=== PATIENT | female | born 1965 | race American Indian/Alaskan Native ===

== ENCOUNTER 2016-10-26 09:43 | Inpatient (IN) | payer OTHER ==
[2016-10-26 09:44] VITALS: BMI 28.3
--- NOTE | 2016-10-26 09:50 | C.PDOC ---
History Of Present Illness 51F c/o pain in right great toe worsening over the last several days. she says the toe became discolored and then the toenail fell off about 12 days ago. no fever. had some cough yesterday but not today. has been putting gentamycin cream on the toe. Time Seen by Provider: 10/26/16 09:47 Chief Complaint (Nursing): Lower Extremity Problem/Injury Past Medical History Vital Signs: Last Vital Signs Temp 99.8 F H 10/27/16 06:45 Pulse 78 10/27/16 06:45 Resp 18 10/27/16 06:45 BP 142/72 10/27/16 06:45 Pulse Ox 97 10/27/16 06:45 - Medical History PMH: Anemia, Bronchitis, Diabetes, HTN, Hypercholesterolemia, Pneumonia, End Stage Renal Disease (PD), Chronic Kidney Disease Surgical History: - [facility] Procedures CREATE CUTANPERITON FIST (12/30/14) HEMODIALYSIS (11/06/14) LAPAROSCOP LYSIS-PERITONEAL ADHES (12/30/14) VASCULAR CATH IRRIGATION (01/14/15) VENOUS CATHETERIZATION FOR RENAL DIALYSIS (11/06/14) Family History: States: Other Other Family History: nc - Social History Hx Tobacco Use: Yes Hx Alcohol Use: No Hx Substance Use: No - Immunization History Hx Tetanus Toxoid Vaccination: Yes Hx Influenza Vaccination: No Hx Pneumococcal Vaccination: No Review Of Systems Except As Marked, All Systems Reviewed And Found Negative. Constitutional: Negative for: Fever, Chills Cardiovascular: Negative for: Chest Pain Respiratory: Negative for: Cough, Shortness of Breath Gastrointestinal: Negative for: Nausea, Vomiting, Abdominal Pain Neurological: Negative for: Weakness, Numbness Physical Exam - Physical Exam Appears: Non-toxic, Other (appears uncomfortable due to pain) Skin: Warm, Dry Eye(s): bilateral: PERRL Nose: No Epistaxis Oral Mucosa: Moist Cardiovascular: Rhythm Regular Respiratory: No Decreased Breath Sounds, No Accessory Muscle Use Gastrointestinal/Abdominal: Soft, No Tenderness, Other (PD cath in place) Extremity: Other (right: dusky coloration of toes 1,3,5. nail has avulsed great toe and there is whitish discoloration of the toe. ) Pulses: Left Dorsalis Pedis: Absent, Right Dorsalis Pedis: Absent Neurological/Psych: Oriented x3, Normal Motor, Normal Sensation, Other (no focal deficits) ED Course And Treatment - Laboratory Results Result Diagrams: 10/26/16 10:56 10/26/16 10:56 O2 Sat by Pulse Oximetry: 98 Medical Decision Making Medical Decision Making: abx ordered disc w Dr Lord who will admit consulted podiatry who came in to eval the pt arterial duplex ordered xr r foot- no acute findings Disposition - Disposition Disposition: HOSPITALIZED Disposition Time: 11:23 Condition: STABLE - Clinical Impression Clinical Impression: Foot infection, Lower limb ischemia
[2016-10-26] MEDS ORDERED: Piperacill/Tazo 2.25gm in Dex 2.25 GM/50 ML BAG IVPB STA (10:05)
--- NOTE | 2016-10-26 10:47 | RAD ---
PROCEDURE: Right Foot Radiographs. HISTORY: eval for osteo COMPARISON: None. FINDINGS: BONES: Normal. No fracture. JOINTS: Normal. SOFT TISSUES: Vascular calcification OTHER FINDINGS: None. IMPRESSION: No plain radiographic evidence of osteomyelitis.
[2016-10-26] MEDS ORDERED: Morphine 4 MG/ML VIAL ONE (10:53)
[2016-10-26 10:59] LABS: BASO # 0.1 K/uL (0.0-0.2); BASO % 0.6 % (0.0-2.0); EOS % 0.3 % (0.0-4.0); HEMATOCRIT 25.6 % (34.0-47.0); LYMPH # 1.1 K/uL (1.0-4.3); LYMPH % 7.4 % (20.0-40.0); MEAN CORPUSCULAR HEMOGLOBIN 32.7 pg (27.0-31.0); MEAN CORPUSCULAR HGB CONC 32.7 g/dL (33.0-37.0); MEAN PLATELET VOLUME 8.8 fL (7.2-11.7); MONO # 0.7 K/uL (0.0-0.8); MONO % 5.1 % (0.0-10.0); PLATELET COUNT 260 K/uL (130-400); RED CELL DISTRIBUTION WIDTH 18.6 % (11.5-14.5)
[2016-10-26 11:05] LABS: WHITE BLOOD COUNT 14.5 K/uL (4.8-10.8)
[2016-10-26 11:08] LABS: VENOUS BLOOD GAS BASE EXCESS 4.7 mmol/L (0.0-2.0); VENOUS BLOOD GAS PCO2 51 mmHg (40-60); VENOUS BLOOD PH 7.39 (7.32-7.43)
[2016-10-26 11:08] LABS: POTASSIUM 4.1 mmol/L (3.6-5.2)
[2016-10-26 11:10] LABS: ALB/GLOB RATIO 1.2 (1.0-2.1); BILIRUBIN,TOTAL 0.6 mg/dL (0.2-1.3); CALCIUM 9.3 mg/dl (8.6-10.4); TOTAL PROTEIN 6.5 g/dL (6.3-8.3)
[2016-10-26 11:24] LABS: NEUTROPHIL 87 % (50-75); TOTAL CELLS COUNTED 100
--- NOTE | 2016-10-26 13:07 | CP.PCM.CON ---
<Ricky Prieto - Last Filed: 10/26/16 13:26> History of Present Illness - History of Present Illness History of Present Illness: This is a 51 y/o female patient who was seen and evaluated at bedside with attending, Dr. Aldrich, after request for podiatry consultation. Patient has PMH significant for DM, HTN, hypercholesterolemia, ESRD, anemia, bronchitis and pneumonia. Patient states that she has been experiencing severe pain in her Right great toe over the last few days. She states that the toenail became discolored and fell off around 2 weeks ago. She states that she now has been applying Gentamicin cream on the toe. Patient states that she thinks her toe appears white/discolored because of the tape that she used to dress it. She denies any F/C/N/V/SOB/CP. No other pedal complaints reported at this time. Past Patient History - Infectious Disease Hx of Infectious Diseases: None - Past Medical History & Family History Past Medical History?: Yes - Past Social History Smoking Status: Smoker Currrent Status Unknown - CARDIAC Hx Hypercholesterolemia: Yes Hx Hypertension: Yes - PULMONARY Hx Bronchitis: Yes Hx Pneumonia: Yes - RENAL Hx Chronic Kidney Disease: Yes - ENDOCRINE/METABOLIC Hx Endocrine Disorders: Yes Hx Diabetes Mellitus Type 2: Yes - HEMATOLOGICAL/ONCOLOGICAL Hx Anemia: Yes - INTEGUMENTARY Hx Dermatological Problems: Yes Hx Eczema: Yes - MUSCULOSKELETAL/RHEUMATOLOGICAL Hx Falls: Yes - GENITOURINARY/GYNECOLOGICAL Hx Genitourinary Disorders: Yes (DX: RENAL FAILURE) - PSYCHIATRIC Hx Substance Use: No - SURGICAL HISTORY Hx Surgeries: Yes Hx Section: Yes Hx Eye Surgery: Yes (INSERT "GAS" BUBBLE BOTH EYES) Hx Tubal Ligation: Yes Hx Vascular Access Device: Yes (R SC HD cath) Other/Comment: I&D GROIN; 12/30/14 LAPAROSCOPIC INSERTION PERITONEAL DIALYSIS CATHETER. 01/14/15 REVISION DONE OF PERITIONEAL DIALYSIS CATH. - ANESTHESIA Hx Anesthesia: Yes Hx Anesthesia Reactions: No Hx Malignant Hyperthermia: No Meds Allergies/Adverse Reactions: Allergies Allergy/AdvReac Type Severity Reaction Status Date / Time shrimp Allergy Verified 10/26/16 09:55 Physical Exam - Constitutional Appears: Non-toxic, No Acute Distress - Extremities Exam Extremities exam: Positive for: tenderness - Neurological Exam Neurological exam: Alert, Oriented x3 - Psychiatric Exam Psychiatric exam: Normal Affect, Normal Mood - Skin Skin Exam: Dry - Additional Findings Additional findings: Bilateral foot examination: Vascular: DP pulse faintly palpable 1/4 bilaterally; PT pulse non-palpable; capillary fill time 4 secs to all digits except Right hallux, which appears to be blanched with no return of normal color upon compression; Right hallux feels mildly cool to the touch Neuro: light touch sensation and motor function grossly intact Derm: Right hallux appears to be ischemic with no evidence of open wounds; Right hallux toenail is absent; no edema, no erythema, no open lesions; no clinical signs of infection noted Ortho: significant pain elicited upon palpation of the Right hallux Results - Vital Signs Recent Vital Signs: Last Vital Signs Temp 98.9 F 10/26/16 12:00 Pulse 90 10/26/16 12:00 Resp 16 10/26/16 12:00 BP 147/70 10/26/16 12:00 Pulse Ox 96 10/26/16 12:00 - Labs Result Diagrams: 10/26/16 10:56 10/26/16 10:56 Assessment & Plan - Assessment and Plan (Free Text) Assessment: 51 y/o female with ischemic changes noted to the Right hallux Plan: Patient seen and evaluated at bedside with attending, Dr. Aldrich Labs and vitals reviewed: WBC 14.5; afebrile Right foot radiographs are unremarkable concerning the Right hallux Arterial doppler studies pending- will follow-up on report Dr. Parra contacted for further recommendations; will greatly appreciate help Pain management as per PMD Podiatry to follow while patient remains in house Assessment/Plan Patient Problems: Current Active Problems Problem Status Onset Foot infection Acute Lower limb ischemia Acute <Dre Aldrich - Last Filed: 10/27/16 12:43> Meds - Medications Medications: Current Medications Albuterol Sulfate (Albuterol 0.083% Inhal Jojo (2.5 Mg/3 Ml) Ud) 2.5 mg IH .Q4- 6H [facility] Amlodipine Besylate (Norvasc) 10 mg PO DAILY [facility] Last Admin: 10/27/16 11:00 Dose: Not Given Aspirin (Ecotrin) 81 mg PO DAILY [facility] Last Admin: 10/27/16 10:51 Dose: 81 mg Calcium Acetate (Phoslo) 667 mg PO TIDCC [facility] Last Admin: 10/27/16 11:00 Dose: Not Given Carvedilol (Coreg) 12.5 mg PO BID [facility] Last Admin: 10/27/16 10:52 Dose: 12.5 mg Docusate Sodium (Colace) 100 mg PO BID [facility] Last Admin: 10/27/16 10:51 Dose: 100 mg Ferrous Sulfate (Feosol) 325 mg PO DAILY [facility] Last Admin: 10/27/16 10:58 Dose: Not Given Furosemide (Lasix) 40 mg PO DAILY [facility] Last Admin: 10/27/16 10:52 Dose: 40 mg Piperacillin Sod/Tazobactam Sod (Zosyn 2.25 Gm Iv Premix) 2.25 gm in 50 mls @ 100 mls/hr IVPB Q8H [facility] Last Admin: 10/27/16 02:34 Dose: 100 mls/hr Heparin Sodium/Sodium Chloride (Heparin 68936 Units/250ml 1/2 Normal Saline) 25 ,000 units in 250 mls @ 4.491 mls/hr IV .Q24H PRN; Protocol; 6 UNITS/KG/HR PRN Reason: PROTOCOL Insulin Glargine (Lantus) 50 unit SC [facility] Last Admin: 10/26/16 21:44 Dose: 50 units Morphine Sulfate (Morphine) 1 mg IVP Q4 PRN PRN Reason: Pain, moderate (4-7) Rosuvastatin Calcium (Crestor) 2.5 mg PO [facility] Results - Vital Signs Recent Vital Signs: Last Vital Signs Temp 100.9 F H 10/27/16 07:00 Pulse 92 H 10/27/16 07:00 Resp 20 10/27/16 07:00 BP 150/76 10/27/16 10:52 Pulse Ox 98 10/27/16 07:59 - Labs Result Diagrams: 10/27/16 08:13 10/26/16 10:56 Labs: Laboratory Results - last 24 hr 10/26/16 10/26/16 10/27/16 18:15 21:28 06:57 WBC RBC Hgb Hct MCV MCH MCHC RDW Plt Count MPV PT 11.5 INR 1.0 APTT 27 POC Glucose (mg/dL) 272 H 114 H Phosphorus 10/27/16 10/27/16 10/27/16 08:13 08:13 11:33 WBC 12.0 H RBC 2.69 L Hgb 8.8 L Hct 27.0 L MCV 100.3 H MCH 32.7 H MCHC 32.7 L RDW 19.2 H Plt Count 286 MPV 8.8 PT INR APTT POC Glucose (mg/dL) 49 L Phosphorus 8.0 H 10/27/16 11:57 WBC RBC Hgb Hct MCV MCH MCHC RDW Plt Count MPV PT INR APTT POC Glucose (mg/dL) 147 H Phosphorus Assessment/Plan Plan/Action: 1. 2. 3. 4. 5. 6. Attending/Attestation - Attestation I have personally seen and examined this patient.: Yes I have fully participated in the care of the patient.: Yes I have reviewed all pertinent clinical information: Yes
--- NOTE | 2016-10-26 14:38 | CP.PCM.CON ---
History of Present Illness - History of Present Illness History of Present Illness: This is a 51 y/o female patient who was seen and evaluated at bedside with attending, Dr. Aldrich, after request for podiatry consultation. Patient has PMH significant for DM, HTN, hypercholesterolemia, ESRD, anemia, bronchitis and pneumonia. Patient states that she has been experiencing severe pain in her Right great toe over the last few days. She states that the toenail became discolored and fell off around 2 weeks ago. She states that she now has been applying Gentamicin cream on the toe. Patient states that she thinks her toe appears white/discolored because of the tape that she used to dress it. She denies any F/C/N/V/SOB/CP. No other pedal complaints reported at this time. Presented to office today with very tender toe #1 with erythema, possible pus from antrerior nail bed. Had pulled nail off 12 days ago and administering local ointents Has had fevers, chill. PMH: ESRD- ON [facility] DIABETIC NEPHROPATHY DM 2 HTN DL CHRONIC ANEMIA CHF OCCURENCE ABOUT 6 MOS AGO PSH: PD CATHETER INSERTION TUBAL LIGATION EYE SURGERY HAS CELLULITIS TOE #1 RIGHT R/O OSTEOMYELITIS ESRD REQUIRING PD WILL ARRANGE FOR PD IV ANTIBIOTICS NEEDS WOUND CARE, SURGICAL FOLLOW UP CONSULT DICTATED Past Patient History - Infectious Disease Hx of Infectious Diseases: None - Past Medical History & Family History Past Medical History?: Yes - Past Social History Smoking Status: Never Smoked - CARDIAC Hx Hypercholesterolemia: Yes Hx Hypertension: Yes - PULMONARY Hx Bronchitis: Yes Hx Pneumonia: Yes - RENAL Hx Chronic Kidney Disease: Yes - ENDOCRINE/METABOLIC Hx Endocrine Disorders: Yes Hx Diabetes Mellitus Type 2: Yes - HEMATOLOGICAL/ONCOLOGICAL Hx Anemia: Yes - INTEGUMENTARY Hx Dermatological Problems: Yes Hx Eczema: Yes - MUSCULOSKELETAL/RHEUMATOLOGICAL Hx Falls: Yes - GENITOURINARY/GYNECOLOGICAL Hx Genitourinary Disorders: Yes (DX: RENAL FAILURE) - PSYCHIATRIC Hx Substance Use: No - SURGICAL HISTORY Hx Surgeries: Yes Hx Section: Yes Hx Eye Surgery: Yes (INSERT "GAS" BUBBLE BOTH EYES) Hx Tubal Ligation: Yes Hx Vascular Access Device: Yes (R SC HD cath) Other/Comment: I&D GROIN; 12/30/14 LAPAROSCOPIC INSERTION PERITONEAL DIALYSIS CATHETER. 01/14/15 REVISION DONE OF PERITIONEAL DIALYSIS CATH. - ANESTHESIA Hx Anesthesia: Yes Hx Anesthesia Reactions: No Hx Malignant Hyperthermia: No Meds Allergies/Adverse Reactions: Allergies Allergy/AdvReac Type Severity Reaction Status Date / Time shrimp Allergy Verified 10/26/16 09:55 Results - Vital Signs Recent Vital Signs: Last Vital Signs Temp 98.8 F 10/26/16 13:58 Pulse 88 10/26/16 13:58 Resp 20 10/26/16 13:58 BP 164/77 H 10/26/16 13:58 Pulse Ox 92 L 10/26/16 13:58 - Labs Result Diagrams: 10/26/16 10:56 10/26/16 10:56
--- NOTE | 2016-10-26 15:07 | CON ---
DATE: 10/26/2016 The patient is a 51-year-old woman who was initially seen in the office today with a very tender right toe #1 which was very erythematous, pale and possible pus coming out around the na il bed. She had taken off on her nail about 12 days ago and was treating it locally with an ointment . It became possibly pussy and very tender and erythematous, and was seen in the office. Concern fo r osteomyelitis and cellulitis was expressed, and the patient came to the Emergency Department. She was seen by podiatry in the Emergency Department and was being treated for cellulitis. She has been receiving now IV vancomycin and IV Zosyn. PAST MEDICAL HISTORY: Otherwise is that of end-stage renal disease due to diabetic nephropathy, been on maintenance peritoneal dialysis for 2 years, history of hypertension, diabetes mellitus type 2, c hronic anemia, dyslipidemia. PAST SURGICAL HISTORY: PD catheter insertion, , tubal ligation and eye surgery, presumably for diabetic retinopathy. FAMILY HISTORY: Negative for chronic kidney disease but mostly unknown. SOCIAL HISTORY: She is a former smoker, former history of intravenous drug abuse but approximately 1 7 years ago. No history of alcohol abuse. REVIEW OF SYSTEMS: Significant for weakness, fevers, chills at home; extreme pain in the right foot from the toe cellulitis. No nausea or vomiting. No diarrhea. No new rashes except for the erythema around toe #1. No chest pain. She has little urine output. Other review of systems are all negati ve. PHYSICAL EXAMINATION: GENERAL: She is a well-developed female in no acute distress. VITAL SIGNS: When seen at present, the blood pressure is 164/77, pulse 88, temperature 98.8, pulse o x was 92% on room air. HEENT: Anicteric. Mouth was clear. NECK: No JVD. LUNGS: Lung razo were clear. HEART: Regular rhythm, no murmur. ABDOMEN: Soft, benign. PD catheter in place. EXTREMITIES: She had no peripheral edema. The right toe #1 was very erythematous initially; now wit h less erythema and the discharges around the nail bed have dried out mostly. She had an x-ray of the foot and it revealed no evidence of osteomyelitis. She has vascular calcific ation now. LABORATORY DATA: The chemistries show BUN of 49, creatinine 13.6, potassium 4.1, sodium 132, calcium 9.3, hemoglobin is 8.4, white count 14.5. IMPRESSION: Right toe #1 infection, possible abscess and cellulitis, rule out osteomyelitis; end-sta ge renal disease due to diabetic nephropathy; diabetes mellitus, type 2; hypertension, chronic anemia and dyslipidemia. The anemia is worse than previous. PLAN: Would be surgical wound care. Will rule out osteomyelitis. IV antibiotics have been started, including vancomycin and Zosyn. Will continue the peritoneal dialysis and add subQ Procrit, and ignacio ck iron stores. Will follow up. Merritt Macdonald MD cc: [id number] TT: 10/26/2016 15:06:12 Confirmation # [id number] Dictation # [id number] mn
[2016-10-26] MEDS ORDERED: Vancomycin 1 gm/NS 200 ml 1 GM/200 ML BAG IVPB SCH ×2 (16:00→17:00)
[2016-10-26] MEDS ORDERED: Piperacill/Tazo 3.375gm in Dex 3.375 GM/50 ML BAG IVPB SCH (16:00)
[2016-10-26] MEDS ORDERED: Heparin25000 units/250ml 1/2NS 25,000 UNITS/250 ML BAG IV PRN (16:32)
[2016-10-26] MEDS: Piperacill/Tazo 2.25gm in Dex 2.25 GM/50 ML BAG IVPB SCH (19:40)
[2016-10-26] MEDS ORDERED: (Lantus) Insulin Glargine, Recombinant SC SCH (22:00)
[2016-10-27] MEDS: Piperacill/Tazo 2.25gm in Dex 2.25 GM/50 ML BAG IVPB SCH ×3 (02:34→19:27)
--- NOTE | 2016-10-27 05:46 | CP.PCM.CON ---
History of Present Illness - History of Present Illness History of Present Illness: History Of Present Illness 51F c/o pain in right great toe worsening over the last several days. she says the toe became discolored and then the toenail fell off about 12 days ago. no fever. had some cough yesterday but not today. has been putting gentamycin cream on the toe. Chief Complaint (Nursing): Lower Extremity Problem/Injury Past Medical History Vital Signs: Last Vital Signs Temp 98.2 F 10/26/16 09:45 Pulse 88 10/26/16 09:45 Resp 18 10/26/16 09:45 BP 162/80 H 10/26/16 09:45 Pulse Ox 98 10/26/16 09:50 - Medical History PMH: Anemia, Bronchitis, Diabetes, HTN, Hypercholesterolemia, Pneumonia, End Stage Renal Disease (PD), Chronic Kidney Disease Surgical History: - [facility] Procedures CREATE CUTANPERITON FIST (12/30/14) HEMODIALYSIS (11/06/14) LAPAROSCOP LYSIS-PERITONEAL ADHES (12/30/14) VASCULAR CATH IRRIGATION (01/14/15) VENOUS CATHETERIZATION FOR RENAL DIALYSIS (11/06/14) Family History: States: Other Other Family History: nc - Social History Hx Tobacco Use: Yes Hx Alcohol Use: No Hx Substance Use: No - Immunization History Hx Tetanus Toxoid Vaccination: Yes Hx Influenza Vaccination: No Hx Pneumococcal Vaccination: No Review Of Systems Except As Marked, All Systems Reviewed And Found Negative. Constitutional: Negative for: Fever, Chills Cardiovascular: Negative for: Chest Pain Respiratory: Negative for: Cough, Shortness of Breath Gastrointestinal: Negative for: Nausea, Vomiting, Abdominal Pain Neurological: Negative for: Weakness, Numbness Physical Exam - Physical Exam Appears: Other (appears uncomfortable due to pain) Skin: Warm, Dry Eye(s): bilateral: PERRL Nose: No Epistaxis Oral Mucosa: Moist Cardiovascular: Rhythm Regular Respiratory: No Decreased Breath Sounds, No Accessory Muscle Use Gastrointestinal/Abdominal: Soft, No Tenderness, Other (PD cath in place) Extremity: Other (right: dusky coloration of toes 1,3,5. nail has avulsed great toe and there is whitish discoloration of the toe. ) Pulses: Left Dorsalis Pedis: Absent, Right Dorsalis Pedis: Absent Neurological/Psych: Oriented x3, Normal Motor, Normal Sensation, Other (no focal deficits) Past Patient History - Infectious Disease Hx of Infectious Diseases: None - Past Medical History & Family History Past Medical History?: Yes - Past Social History Smoking Status: Never Smoked - CARDIAC Hx Hypercholesterolemia: Yes Hx Hypertension: Yes - PULMONARY Hx Bronchitis: Yes Hx Pneumonia: Yes - RENAL Hx Chronic Kidney Disease: Yes - ENDOCRINE/METABOLIC Hx Endocrine Disorders: Yes Hx Diabetes Mellitus Type 2: Yes - HEMATOLOGICAL/ONCOLOGICAL Hx Anemia: Yes - INTEGUMENTARY Hx Dermatological Problems: Yes Hx Eczema: Yes - MUSCULOSKELETAL/RHEUMATOLOGICAL Hx Falls: Yes - GENITOURINARY/GYNECOLOGICAL Hx Genitourinary Disorders: Yes (DX: RENAL FAILURE) - PSYCHIATRIC Hx Substance Use: No - SURGICAL HISTORY Hx Surgeries: Yes Hx Section: Yes Hx Eye Surgery: Yes (INSERT "GAS" BUBBLE BOTH EYES) Hx Tubal Ligation: Yes Hx Vascular Access Device: Yes (R SC HD cath) Other/Comment: I&D GROIN; 12/30/14 LAPAROSCOPIC INSERTION PERITONEAL DIALYSIS CATHETER. 01/14/15 REVISION DONE OF PERITIONEAL DIALYSIS CATH. - ANESTHESIA Hx Anesthesia: Yes Hx Anesthesia Reactions: No Hx Malignant Hyperthermia: No Meds Allergies/Adverse Reactions: Allergies Allergy/AdvReac Type Severity Reaction Status Date / Time shrimp Allergy Verified 10/26/16 09:55 - Medications Medications: Current Medications Albuterol Sulfate (Albuterol 0.083% Inhal Jojo (2.5 Mg/3 Ml) Ud) 2.5 mg IH .Q4- 6H [facility] Amlodipine Besylate (Norvasc) 10 mg PO DAILY [facility] Aspirin (Ecotrin) 81 mg PO DAILY [facility] Calcium Acetate (Phoslo) 667 mg PO TIDCC [facility] Last Admin: 10/26/16 21:52 Dose: Not Given Carvedilol (Coreg) 12.5 mg PO BID [facility] Last Admin: 10/26/16 17:46 Dose: 12.5 mg Docusate Sodium (Colace) 100 mg PO BID [facility] Last Admin: 10/26/16 17:45 Dose: 100 mg Ferrous Sulfate (Feosol) 325 mg PO DAILY [facility] Furosemide (Lasix) 40 mg PO DAILY [facility] Piperacillin Sod/Tazobactam Sod (Zosyn 2.25 Gm Iv Premix) 2.25 gm in 50 mls @ 100 mls/hr IVPB Q8H [facility] Last Admin: 10/27/16 02:34 Dose: 100 mls/hr Heparin Sodium/Sodium Chloride (Heparin 14227 Units/250ml 1/2 Normal Saline) 25 ,000 units in 250 mls @ 4.491 mls/hr IV .Q24H PRN; Protocol; 6 UNITS/KG/HR PRN Reason: PROTOCOL Insulin Glargine (Lantus) 50 unit SC [facility] Last Admin: 10/26/16 21:44 Dose: 50 units Morphine Sulfate (Morphine) 2 mg IVP Q4 PRN PRN Reason: Pain, Mild (1-3) Last Admin: 10/27/16 01:38 Dose: 2 mg Results - Vital Signs Recent Vital Signs: Last Vital Signs Temp 98.9 F 10/27/16 00:00 Pulse 88 10/27/16 00:00 Resp 20 10/27/16 00:00 BP 156/70 H 10/27/16 00:00 Pulse Ox 96 10/27/16 00:00 - Labs Result Diagrams: 10/26/16 10:56 10/26/16 10:56 Labs: Laboratory Results - last 24 hr 10/26/16 10/26/16 18:15 21:28 PT 11.5 INR 1.0 APTT 27 POC Glucose (mg/dL) 272 H Assessment & Plan - Assessment and Plan (Free Text) Assessment: 1. Right Toe discoloration: Osteomyelitis Vs. Critical Limb ischemia Arterial duplex pending On Peritonial dialysis. Need Renal clearnace for lower extremity CTA Patient is refusing IV Heparin, and CT angiography Recommend Hemodialysis atleat tempoararily for which patient is not agreeing Underastands the risk of losing the leg and potential gagrane Recommend IV Heaprin, Statin, ASA and Plavix
[2016-10-27] MEDS: Albuterol 0.083% Inhal Sol (2.5 mg/3 mL) UD IH SCH ×4 (07:24→19:40)
[2016-10-27 08:22] LABS: MEAN CELL VOLUME 100.3 fL (81.0-99.0); MEAN CORPUSCULAR HEMOGLOBIN 32.7 pg (27.0-31.0); MEAN CORPUSCULAR HGB CONC 32.7 g/dL (33.0-37.0); MEAN PLATELET VOLUME 8.8 fL (7.2-11.7); RED CELL DISTRIBUTION WIDTH 19.2 % (11.5-14.5)
--- NOTE | 2016-10-27 08:26 | CP.PCM.PN ---
<Radhames De Los Santos - Last Filed: 10/27/16 12:11> Subjective - Date & Time of Evaluation Date of Evaluation: 10/27/16 Time of Evaluation: 08:00 - Subjective Subjective: 51 y/o female patient at bedside this morning concerning right hallux ischemic changes. Patient states her right great toe pain has subsided since admission controlled by pain medications, however she is experiencing nausea, and vomited during the interview. Pt is refusing antiemetic or change in pain control at this time s she does not wish to try any other pain medication in fear it will make her feel "alicia' and potentially cause her to relapse into opiod use. She states that she now has been applying Gentamicin cream on the toe. Pt admits to nausea and vomiting. She denies any recent F/C/SOB/CP. No other pedal complaints reported at this time. Objective - Vital Signs/Intake and Output Vital Signs (last 24 hours): Temp Pulse Resp BP Pulse Ox 100.9 F H 92 H 20 160/72 H 98 10/27/16 07:00 10/27/16 07:00 10/27/16 07:00 10/27/16 07:00 10/27/16 07:59 - Medications Medications: Current Medications Albuterol Sulfate (Albuterol 0.083% Inhal Jojo (2.5 Mg/3 Ml) Ud) 2.5 mg IH .Q4- 6H ON [facility] OF [facility] Amlodipine Besylate (Norvasc) 10 mg PO DAILY ON [facility] OF [facility] Aspirin (Ecotrin) 81 mg PO DAILY ON [facility] OF [facility] Calcium Acetate (Phoslo) 667 mg PO TIDCC ON LICENSE OF [facility] Last Admin: 10/26/16 21:52 Dose: Not Given Carvedilol (Coreg) 12.5 mg PO BID ON [facility] OF [facility] Last Admin: 10/26/16 17:46 Dose: 12.5 mg Docusate Sodium (Colace) 100 mg PO BID ON [facility] OF [facility] Last Admin: 10/26/16 17:45 Dose: 100 mg Ferrous Sulfate (Feosol) 325 mg PO DAILY ON [facility] Furosemide (Lasix) 40 mg PO DAILY ON [facility] OF [facility] Piperacillin Sod/Tazobactam Sod (Zosyn 2.25 Gm Iv Premix) 2.25 gm in 50 mls @ 100 mls/hr IVPB Q8H ON [facility] OF [facility] Last Admin: 10/27/16 02:34 Dose: 100 mls/hr Heparin Sodium/Sodium Chloride (Heparin 00861 Units/250ml 1/2 Normal Saline) 25 ,000 units in 250 mls @ 4.491 mls/hr IV .Q24H PRN; Protocol; 6 UNITS/KG/HR PRN Reason: PROTOCOL Insulin Glargine (Lantus) 50 unit SC HS [facility] Last Admin: 10/26/16 21:44 Dose: 50 units Morphine Sulfate (Morphine) 2 mg IVP Q4 PRN PRN Reason: Pain, Mild (1-3) Last Admin: 10/27/16 07:54 Dose: 2 mg Rosuvastatin Calcium (Crestor) 2.5 mg PO HS [facility] - Labs Labs: PT 11.5 SECONDS (9.7-12.2) 10/26/16 18:15 INR 1.0 10/26/16 18:15 APTT 27 SECONDS (21-34) 10/26/16 18:15 - Constitutional Appears: Non-toxic, No Acute Distress - Extremities Exam Additional comments: Bilateral foot examination: Vascular: DP pulse faintly palpable 1/4 bilaterally; PT pulse non-palpable; capillary fill time 4 secs to all digits except Right hallux, which appears to be blanched with no return of normal color upon compression; Right hallux feels mildly cool to the touch Neuro: light touch sensation and motor function grossly intact Derm: Right hallux appears to be ischemic with no evidence of open wounds; Right hallux toenail is absent; no edema, no erythema, no open lesions; no clinical signs of infection noted Ortho: significant pain elicited upon palpation of the Right hallux - Neurological Exam Neurological Exam: Alert, Awake, Oriented x3 Assessment and Plan - Assessment and Plan (Free Text) Assessment: 51 y/o female with ischemic changes noted to the Right hallux Plan: Patient seen and evaluated at bedside. Discussed with attending, Dr. Aldrich, who was made aware of changes and endorses the following plan. Labs and vitals reviewed: WBC 12; Low grade fever, 24-hour T-lga=095.9F Right foot radiographs are unremarkable concerning the Right hallux Arterial duplex studies pending- will follow-up on report Dr. Parra note reviewed. Podiatry to follow while patient remains in house <Dre Aldrich - Last Filed: 10/27/16 12:45> Objective - Vital Signs/Intake and Output Vital Signs (last 24 hours): Temp Pulse Resp BP Pulse Ox 100.9 F H 92 H 20 150/76 98 10/27/16 07:00 10/27/16 07:00 10/27/16 07:00 10/27/16 10:52 10/27/16 07:59 - Medications Medications: Current Medications Albuterol Sulfate (Albuterol 0.083% Inhal Jojo (2.5 Mg/3 Ml) Ud) 2.5 mg IH .Q4- 6H [facility] Amlodipine Besylate (Norvasc) 10 mg PO DAILY ON [facility] Last Admin: 10/27/16 11:00 Dose: Not Given Aspirin (Ecotrin) 81 mg PO DAILY ON [facility] Last Admin: 10/27/16 10:51 Dose: 81 mg Calcium Acetate (Phoslo) 667 mg PO TIDCC ON [facility] OF [facility] Last Admin: 10/27/16 11:00 Dose: Not Given Carvedilol (Coreg) 12.5 mg PO BID ON [facility] Last Admin: 10/27/16 10:52 Dose: 12.5 mg Docusate Sodium (Colace) 100 mg PO BID ON [facility] Last Admin: 10/27/16 10:51 Dose: 100 mg Ferrous Sulfate (Feosol) 325 mg PO DAILY [facility] Last Admin: 10/27/16 10:58 Dose: Not Given Furosemide (Lasix) 40 mg PO DAILY ON [facility] Last Admin: 10/27/16 10:52 Dose: 40 mg Piperacillin Sod/Tazobactam Sod (Zosyn 2.25 Gm Iv Premix) 2.25 gm in 50 mls @ 100 mls/hr IVPB Q8H ON [facility] Last Admin: 10/27/16 02:34 Dose: 100 mls/hr Heparin Sodium/Sodium Chloride (Heparin 00616 Units/250ml 1/2 Normal Saline) 25 ,000 units in 250 mls @ 4.491 mls/hr IV .Q24H PRN; Protocol; 6 UNITS/KG/HR PRN Reason: PROTOCOL Insulin Glargine (Lantus) 50 unit SC [facility] Last Admin: 10/26/16 21:44 Dose: 50 units Morphine Sulfate (Morphine) 1 mg IVP Q4 PRN PRN Reason: Pain, moderate (4-7) Rosuvastatin Calcium (Crestor) 2.5 mg PO [facility] - Labs Labs: 10/27/16 08:13 PT 11.5 SECONDS (9.7-12.2) 10/26/16 18:15 INR 1.0 10/26/16 18:15 APTT 27 SECONDS (21-34) 10/26/16 18:15 Attending/Attestation - Attestation I have personally seen and examined this patient.: Yes I have fully participated in the care of the patient.: Yes I have reviewed all pertinent clinical information, including history, physical exam and plan: Yes Notes (Text): 10/27/16 12:44 Pt was seen by Dr. Parra. Dr. Clark to see pt today as well. Will f/u circ results when available.
--- NOTE | 2016-10-27 09:04 | CP.PCM.HP ---
History of Present Illness - History of Present Illness History of Present Illness: Chief complaint: right leg pain History present illness: 51-year-old female with history of hypertension, end-stage renal disease on peritoneal dialysis, hypercholesterolemia, history of pneumonia in the past and chronic kidney disease came to the emergency room with worsening right leg pain , and the pain over right foot. Patient went to see the auto painter to, will send the patient to the emergency rPatient is having increasing symptoms of pain over the right foot, and able to walk. Patient did not have pain while she came to my office last time. Patient is currently having difficulty in controlling the blood sugar. Hospitalized recently with a fluid overload, shortness of jeffrey, at [facility] , emergency hemodialysis was done at that time. Patient is currently reluctant. Patient is currently getting peritoneal dialysis. Complaining of increasing pain, and occupying the right leg, also showing changing in color of the toes. Past medical history: Anemia, chronic bronchitis, diabetes type 2, hypertension, hypercholesterolemia , history of pneumonia in the past, receiving peritoneal dialysis Surgical history: , currently receiving peritoneal dialysis allergy: No known drug allergy Personal history patient is a lifelong nonsmoker, nonalcoholic Review of systems: Denies any headache, but feeling tired and weak as well as nausea and abdominal discomfort on and off. Patient is getting the dialysis regularly at home. 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 Regular heart sound. Abdomen minimal distention, some tenderness noticed over the abdominal area diffusely, pedal edema bilaterally noted. Regular heart sound. CATTLE INSPECTOR alert awake oriented significant changesIn the skin on the right foot noted over the right great toe. Huskiness and the blanching noted. Tenderness severely noted, and able to touc But the pulses dorsalis pedis, posterior tibial, both dopplerable on both sides. No chest pain. Assessment/recommendation: 51 year-old female with a multiple medical history, hypertension, end-stage renal disease on dialysis, history of pneumonia, receiving peritoneal dialysis. Patient was seen by hand spray operator to, cardiology, vascular surgeon, auto painter to today. Patient advised to have a CT angiogram of the abdomen and pelvis in the lower extremities. Patient is currently agreeing to have the procedure. She will be seen in the peritoneal dialysis tonight. Most likely patient has some ischemic leg involving the feet Likely small vessel disease. Most likely secondary to diabetes complication. Pain medications advised. Patient is refusing to have the heparin drip. Blood pressure control anticholesterol antiplatelets. On antibiotic. Will follow the patient Present on Admission - Present on Admission Any Indicators Present on Admission: No History of DVT/PE: No History of Uncontrolled Diabetes: No Urinary Catheter: No Decubitus Ulcer Present: No Past Patient History - Infectious Disease Hx of Infectious Diseases: None - Past Medical History & Family History Past Medical History?: Yes - Past Social History Smoking Status: Never Smoked - CARDIAC Hx Hypercholesterolemia: Yes Hx Hypertension: Yes - PULMONARY Hx Bronchitis: Yes Hx Pneumonia: Yes - RENAL Hx Chronic Kidney Disease: Yes - ENDOCRINE/METABOLIC Hx Endocrine Disorders: Yes Hx Diabetes Mellitus Type 2: Yes - HEMATOLOGICAL/ONCOLOGICAL Hx Anemia: Yes - INTEGUMENTARY Hx Dermatological Problems: Yes Hx Eczema: Yes - MUSCULOSKELETAL/RHEUMATOLOGICAL Hx Falls: Yes - GENITOURINARY/GYNECOLOGICAL Hx Genitourinary Disorders: Yes (DX: RENAL FAILURE) - PSYCHIATRIC Hx Substance Use: No - SURGICAL HISTORY Hx Surgeries: Yes Hx Section: Yes Hx Eye Surgery: Yes (INSERT "GAS" BUBBLE BOTH EYES) Hx Tubal Ligation: Yes Hx Vascular Access Device: Yes (R SC HD cath) Other/Comment: I&D GROIN; 12/30/14 LAPAROSCOPIC INSERTION PERITONEAL DIALYSIS CATHETER. 01/14/15 REVISION DONE OF PERITIONEAL DIALYSIS CATH. - ANESTHESIA Hx Anesthesia: Yes Hx Anesthesia Reactions: No Hx Malignant Hyperthermia: No Meds Allergies/Adverse Reactions: Allergies Allergy/AdvReac Type Severity Reaction Status Date / Time shrimp Allergy Verified 10/26/16 09:55 Results - Vital Signs Recent Vital Signs: Last Vital Signs Temp 100.9 F H 10/27/16 07:00 Pulse 92 H 10/27/16 07:00 Resp 20 10/27/16 07:00 BP 160/72 H 10/27/16 07:00 Pulse Ox 98 10/27/16 07:59 - Labs Result Diagrams: 10/27/16 08:13 10/26/16 10:56 Labs: Laboratory Results - last 24 hr 10/26/16 10/26/16 10/27/16 18:15 21:28 06:57 WBC RBC Hgb Hct MCV MCH MCHC RDW Plt Count MPV PT 11.5 INR 1.0 APTT 27 POC Glucose (mg/dL) 272 H 114 H Phosphorus 10/27/16 10/27/16 08:13 08:13 WBC 12.0 H RBC 2.69 L Hgb 8.8 L Hct 27.0 L MCV 100.3 H MCH 32.7 H MCHC 32.7 L RDW 19.2 H Plt Count 286 MPV 8.8 PT INR APTT POC Glucose (mg/dL) Phosphorus 8.0 H
--- NOTE | 2016-10-27 09:45 | CP.PCM.PN ---
Subjective - Date & Time of Evaluation Date of Evaluation: 10/27/16 Time of Evaluation: 09:43 - Subjective Subjective: This is a 51 y/o female patient who was seen and evaluated at bedside with attending, Dr. Aldrich, after request for podiatry consultation. Patient has PMH significant for DM, HTN, hypercholesterolemia, ESRD, anemia, bronchitis and pneumonia. Patient states that she has been experiencing severe pain in her Right great toe over the last few days. She states that the toenail became discolored and fell off around 2 weeks ago. She states that she now has been applying Gentamicin cream on the toe. Patient states that she thinks her toe appears white/discolored because of the tape that she used to dress it. She denies any F/C/N/V/SOB/CP. No other pedal complaints reported at this time. Presented to office today with very tender toe #1 with erythema, possible pus from antrerior nail bed. Had pulled nail off 12 days ago and administering local ointents Has had fevers, chill. 10/27 No overnight events C/o pain in foot as previous Cycler machine brought from home for pd treatment Patient states morphine dose reduced as she is concerned about addictive effects No cp or palp, no sob or cough, no n/v/d Discussed with admitting team regarding contrast use ROS 10 point negative and as above PMH: ESRD- ON CCPD DIABETIC NEPHROPATHY DM 2 HTN DL CHRONIC ANEMIA CHF OCCURENCE ABOUT 6 MOS AGO PSH: PD CATHETER INSERTION TUBAL LIGATION EYE SURGERY Objective - Vital Signs/Intake and Output Vital Signs (last 24 hours): Temp Pulse Resp BP Pulse Ox 100.9 F H 92 H 20 160/72 H 98 10/27/16 07:00 10/27/16 07:00 10/27/16 07:00 10/27/16 07:00 10/27/16 07:59 - Medications Medications: Current Medications Albuterol Sulfate (Albuterol 0.083% Inhal Jojo (2.5 Mg/3 Ml) Ud) 2.5 mg IH .Q4- 6H [facility] Amlodipine Besylate (Norvasc) 10 mg PO DAILY [facility] Aspirin (Ecotrin) 81 mg PO DAILY [facility] Calcium Acetate (Phoslo) 667 mg PO TIDCC [facility] Last Admin: 10/26/16 21:52 Dose: Not Given Carvedilol (Coreg) 12.5 mg PO BID [facility] Last Admin: 10/26/16 17:46 Dose: 12.5 mg Docusate Sodium (Colace) 100 mg PO BID [facility] Last Admin: 10/26/16 17:45 Dose: 100 mg Ferrous Sulfate (Feosol) 325 mg PO DAILY [facility] Furosemide (Lasix) 40 mg PO DAILY [facility] Piperacillin Sod/Tazobactam Sod (Zosyn 2.25 Gm Iv Premix) 2.25 gm in 50 mls @ 100 mls/hr IVPB Q8H [facility] Last Admin: 10/27/16 02:34 Dose: 100 mls/hr Heparin Sodium/Sodium Chloride (Heparin 13462 Units/250ml 1/2 Normal Saline) 25 ,000 units in 250 mls @ 4.491 mls/hr IV .Q24H PRN; Protocol; 6 UNITS/KG/HR PRN Reason: PROTOCOL Insulin Glargine (Lantus) 50 unit SC HS [facility] Last Admin: 10/26/16 21:44 Dose: 50 units Morphine Sulfate (Morphine) 2 mg IVP Q4 PRN PRN Reason: Pain, Mild (1-3) Last Admin: 10/27/16 07:54 Dose: 2 mg Rosuvastatin Calcium (Crestor) 2.5 mg PO [facility] - Labs Labs: 10/27/16 08:13 PT 11.5 SECONDS (9.7-12.2) 10/26/16 18:15 INR 1.0 10/26/16 18:15 APTT 27 SECONDS (21-34) 10/26/16 18:15 - Constitutional Appears: Well, Non-toxic - Head Exam Head Exam: ATRAUMATIC, NORMAL INSPECTION - Eye Exam Eye Exam: EOMI, Normal appearance - ENT Exam ENT Exam: Mucous Membranes Moist, Normal Oropharynx - Neck Exam Neck Exam: absent: Lymphadenopathy, Thyromegaly - Respiratory Exam Respiratory Exam: Clear to Ausculation Bilateral. absent: Rales, Rhonchi, Wheezes - Cardiovascular Exam Cardiovascular Exam: REGULAR RHYTHM, +S1, +S2. absent: Rubs - GI/Abdominal Exam GI & Abdominal Exam: Soft, Normal Bowel Sounds - Extremities Exam Extremities Exam: Tenderness. absent: Pedal Edema - Neurological Exam Neurological Exam: Alert, Awake, Oriented x3 - Psychiatric Exam Psychiatric exam: Normal Affect, Normal Mood Assessment and Plan (1) Foot infection Status: Acute (2) Lower limb ischemia Status: Acute (3) Anemia Status: Acute (4) Diabetes mellitus Status: Acute (5) ESRD on peritoneal dialysis Status: Acute - Assessment and Plan (Free Text) Plan: Maintain pd prescription Phos binder as tolerated Abx as ordered Monitor bp - elevated due to pain Follow hgb - LEELA Discussed with admitting team- ok for contrast if necessary to evaluate vascular supply
--- NOTE | 2016-10-27 13:06 | CP.PCM.PN ---
Subjective - Date & Time of Evaluation Date of Evaluation: 10/27/16 Time of Evaluation: 13:05 - Subjective Subjective: dw dr cowan needs cta to evaluate circulation Objective - Vital Signs/Intake and Output Vital Signs (last 24 hours): Temp Pulse Resp BP Pulse Ox 100.9 F H 92 H 20 150/76 98 10/27/16 07:00 10/27/16 07:00 10/27/16 07:00 10/27/16 10:52 10/27/16 07:59 - Medications Medications: Current Medications Albuterol Sulfate (Albuterol 0.083% Inhal Jojo (2.5 Mg/3 Ml) Ud) 2.5 mg IH .Q4- 6H [facility] Amlodipine Besylate (Norvasc) 10 mg PO DAILY [facility] Last Admin: 10/27/16 11:00 Dose: Not Given Aspirin (Ecotrin) 81 mg PO DAILY [facility] Last Admin: 10/27/16 10:51 Dose: 81 mg Calcium Acetate (Phoslo) 667 mg PO TIDCC [facility] Last Admin: 10/27/16 11:00 Dose: Not Given Carvedilol (Coreg) 12.5 mg PO BID [facility] Last Admin: 10/27/16 10:52 Dose: 12.5 mg Docusate Sodium (Colace) 100 mg PO BID [facility] Last Admin: 10/27/16 10:51 Dose: 100 mg Ferrous Sulfate (Feosol) 325 mg PO DAILY [facility] Last Admin: 10/27/16 10:58 Dose: Not Given Furosemide (Lasix) 40 mg PO DAILY [facility] Last Admin: 10/27/16 10:52 Dose: 40 mg Piperacillin Sod/Tazobactam Sod (Zosyn 2.25 Gm Iv Premix) 2.25 gm in 50 mls @ 100 mls/hr IVPB Q8H [facility] Last Admin: 10/27/16 02:34 Dose: 100 mls/hr Heparin Sodium/Sodium Chloride (Heparin 77128 Units/250ml 1/2 Normal Saline) 25 ,000 units in 250 mls @ 4.491 mls/hr IV .Q24H PRN; Protocol; 6 UNITS/KG/HR PRN Reason: PROTOCOL Insulin Glargine (Lantus) 50 unit SC HS [facility] Last Admin: 10/26/16 21:44 Dose: 50 units Morphine Sulfate (Morphine) 1 mg IVP Q4 PRN PRN Reason: Pain, moderate (4-7) Rosuvastatin Calcium (Crestor) 2.5 mg PO HS [facility] - Labs Labs: 10/27/16 08:13 PT 11.5 SECONDS (9.7-12.2) 10/26/16 18:15 INR 1.0 10/26/16 18:15 APTT 27 SECONDS (21-34) 10/26/16 18:15
[2016-10-27] MEDS ORDERED: (Lantus) Insulin Glargine, Recombinant SC SCH (15:09)
[2016-10-27] MEDS: Rosuvastatin Calcium 2.5 mg Tab PO SCH (23:00)
[2016-10-28] MEDS: Albuterol 0.083% Inhal Sol (2.5 mg/3 mL) UD IH SCH ×6 (00:48→19:35)
[2016-10-28] MEDS: Piperacill/Tazo 2.25gm in Dex 2.25 GM/50 ML BAG IVPB SCH ×3 (02:42→19:40)
--- NOTE | 2016-10-28 04:15 | CP.PCM.PN ---
Subjective - Date & Time of Evaluation Date of Evaluation: 10/27/16 Time of Evaluation: 13:05 - Subjective Subjective: Patient denies chest pain and dyspnea Vascular mgt as per Dr. Clark Objective - Vital Signs/Intake and Output Vital Signs (last 24 hours): Temp Pulse Resp BP Pulse Ox 98.3 F 94 H 20 145/73 96 10/27/16 23:25 10/27/16 23:25 10/27/16 23:25 10/27/16 23:25 10/27/16 23:25 Intake and Output: 10/27/16 10/28/16 18:59 06:59 Intake Total 360 Output Total 200 Balance 160 - Medications Medications: Current Medications Albuterol Sulfate (Albuterol 0.083% Inhal Jojo (2.5 Mg/3 Ml) Ud) 2.5 mg IH RQ4 [facility] Last Admin: 10/28/16 00:48 Dose: Not Given Amlodipine Besylate (Norvasc) 10 mg PO DAILY [facility] Last Admin: 10/27/16 11:00 Dose: Not Given Aspirin (Ecotrin) 81 mg PO DAILY [facility] Last Admin: 10/27/16 10:51 Dose: 81 mg Calcium Acetate (Phoslo) 667 mg PO TIDCC [facility] Last Admin: 10/27/16 17:52 Dose: 667 mg Carvedilol (Coreg) 12.5 mg PO BID [facility] Last Admin: 10/27/16 17:53 Dose: 12.5 mg Diphenhydramine HCl (Benadryl) 50 mg PO ONCE ONE Stop: 10/28/16 08:01 Docusate Sodium (Colace) 100 mg PO BID [facility] Last Admin: 10/27/16 18:15 Dose: Not Given Ferrous Sulfate (Feosol) 325 mg PO DAILY [facility] Last Admin: 10/27/16 10:58 Dose: Not Given Furosemide (Lasix) 40 mg PO DAILY [facility] Last Admin: 10/27/16 10:52 Dose: 40 mg Piperacillin Sod/Tazobactam Sod (Zosyn 2.25 Gm Iv Premix) 2.25 gm in 50 mls @ 100 mls/hr IVPB Q8H [facility] Last Admin: 10/28/16 02:42 Dose: Not Given Heparin Sodium/Sodium Chloride (Heparin 69741 Units/250ml 1/2 Normal Saline) 25 ,000 units in 250 mls @ 4.491 mls/hr IV .Q24H PRN; Protocol; 6 UNITS/KG/HR PRN Reason: PROTOCOL Morphine Sulfate (Morphine) 1 mg IVP Q4 PRN PRN Reason: Pain, moderate (4-7) Last Admin: 10/27/16 23:28 Dose: 1 mg Prednisone (Prednisone Tab) 40 mg PO Q6H [facility] Stop: 10/28/16 08:01 Last Admin: 10/28/16 02:43 Dose: Not Given Prednisone (Prednisone Tab) 10 mg PO Q6H [facility] Stop: 10/28/16 08:01 Last Admin: 10/28/16 02:43 Dose: Not Given Rosuvastatin Calcium (Crestor) 2.5 mg PO HS [facility] Last Admin: 10/27/16 23:00 Dose: Not Given - Labs Labs: 10/27/16 08:13 PT 11.5 SECONDS (9.7-12.2) 10/26/16 18:15 INR 1.0 10/26/16 18:15 APTT 27 SECONDS (21-34) 10/26/16 18:15
--- NOTE | 2016-10-28 10:06 | CP.PCM.PN ---
Subjective - Date & Time of Evaluation Date of Evaluation: 10/28/16 Time of Evaluation: 07:00 - Subjective Subjective: VASCULAR SURGERY PROGRESS NOTE FOR DR. SANTIAGO Patient seen and examined this morning while receiving peritoneal dialysis. Per nurse, patient refused both the 2nd and 3rd dose of prednisone. Patient is also refusing the CTA as well as other medications. I explained importance of CTA and need for prednisone via [place] protocol to the patient and she continued to refuse both the medication and the CTA. Patient states that her foot feels fine now. She states that she is able to move it and has no pain and therefore does not want any test done for it. Objective - Vital Signs/Intake and Output Vital Signs (last 24 hours): Temp Pulse Resp BP Pulse Ox 98.3 F 94 H 20 145/73 96 10/27/16 23:25 10/27/16 23:25 10/27/16 23:25 10/27/16 23:25 10/27/16 23:25 Intake and Output: 10/28/16 10/28/16 06:59 18:59 Intake Total 360 Output Total 200 Balance 160 - Medications Medications: Current Medications Albuterol Sulfate (Albuterol 0.083% Inhal Jojo (2.5 Mg/3 Ml) Ud) 2.5 mg IH RQ4 [facility] Last Admin: 10/28/16 07:25 Dose: Not Given Amlodipine Besylate (Norvasc) 10 mg PO DAILY [facility] Last Admin: 10/27/16 11:00 Dose: Not Given Aspirin (Ecotrin) 81 mg PO DAILY [facility] Last Admin: 10/27/16 10:51 Dose: 81 mg Calcium Acetate (Phoslo) 667 mg PO TIDCC [facility] Last Admin: 10/28/16 07:53 Dose: 667 mg Carvedilol (Coreg) 12.5 mg PO BID [facility] Last Admin: 10/27/16 17:53 Dose: 12.5 mg Docusate Sodium (Colace) 100 mg PO BID [facility] Last Admin: 10/27/16 18:15 Dose: Not Given Ferrous Sulfate (Feosol) 325 mg PO DAILY [facility] Last Admin: 10/27/16 10:58 Dose: Not Given Furosemide (Lasix) 40 mg PO DAILY [facility] Last Admin: 10/27/16 10:52 Dose: 40 mg Piperacillin Sod/Tazobactam Sod (Zosyn 2.25 Gm Iv Premix) 2.25 gm in 50 mls @ 100 mls/hr IVPB Q8H [facility] Last Admin: 10/28/16 02:42 Dose: Not Given Heparin Sodium/Sodium Chloride (Heparin 82744 Units/250ml 1/2 Normal Saline) 25 ,000 units in 250 mls @ 4.491 mls/hr IV .Q24H PRN; Protocol; 6 UNITS/KG/HR PRN Reason: PROTOCOL Morphine Sulfate (Morphine) 1 mg IVP Q4 PRN PRN Reason: Pain, moderate (4-7) Last Admin: 10/28/16 07:53 Dose: 1 mg Rosuvastatin Calcium (Crestor) 2.5 mg PO HS [facility] Last Admin: 10/27/16 23:00 Dose: Not Given - Labs Labs: 10/27/16 08:13 PT 11.5 SECONDS (9.7-12.2) 10/26/16 18:15 INR 1.0 10/26/16 18:15 APTT 27 SECONDS (21-34) 10/26/16 18:15 - Constitutional Appears: Non-toxic, No Acute Distress - Respiratory Exam Respiratory Exam: NORMAL BREATHING PATTERN. absent: Respiratory Distress - Cardiovascular Exam Cardiovascular Exam: +S1, +S2 - Extremities Exam Additional comments: Right big toe with small area of dark discoloration Non tender Bilat feet warm to touch - Neurological Exam Neurological Exam: Alert, Awake - Psychiatric Exam Psychiatric exam: Normal Affect, Normal Mood Assessment and Plan - Assessment and Plan (Free Text) Assessment: 51yo F with PMHx of HTN, DM, ESRD on peritoneal dialysis, vascular surgery consulted to rule out PVD - CTA was ordered for 9AM this morning - Due to patient's allergy for shrimp, 3 doses of 50mg Prednisone and 1 dose of Benadryl were ordered according to [place] protocol guidelines prior to the anticipated CTA - Patient took the first dose of Prednisone yesterday but refused the 2nd and 3rd dose and is refusing the CTA at this time - Discussed the importance of the medications and the test with the patient but she continued to refuse it - Discussed plan with Dr. Eduardo Chin PGY-2
--- NOTE | 2016-10-28 11:59 | CP.PCM.PN ---
Subjective - Date & Time of Evaluation Date of Evaluation: 10/28/16 Time of Evaluation: 12:10 - Subjective Subjective: 51 y/o female patient at bedside this morning concerning right foot ischemic changes. Patient states her right great toe pain has continue to subside since admission and is well controlled by pain medications. Yesterdays nausea and vomiting have resolved. She denies any recent F/C/SOB/CP. No other pedal complaints reported at this time. Pt noted to have refused CT-Angio. Patient states that her foot feels fine now and does not need additional testing. She states that she is able to move it and has no pain and therefore does not want any test done for it. Objective - Vital Signs/Intake and Output Vital Signs (last 24 hours): Temp Pulse Resp BP Pulse Ox 98.3 F 93 H 16 152/71 H 97 10/28/16 11:22 10/28/16 11:22 10/28/16 11:22 10/28/16 11:22 10/28/16 11:22 Intake and Output: 10/28/16 10/28/16 06:59 18:59 Intake Total 360 Output Total 200 Balance 160 - Medications Medications: Current Medications Albuterol Sulfate (Albuterol 0.083% Inhal Jojo (2.5 Mg/3 Ml) Ud) 2.5 mg IH RQ4 [facility] Last Admin: 10/28/16 07:25 Dose: Not Given Amlodipine Besylate (Norvasc) 10 mg PO DAILY [facility] Last Admin: 10/28/16 10:39 Dose: 10 mg Aspirin (Ecotrin) 81 mg PO DAILY [facility] Last Admin: 10/28/16 10:39 Dose: 81 mg Calcium Acetate (Phoslo) 667 mg PO TIDCC [facility] Last Admin: 10/28/16 11:33 Dose: 667 mg Carvedilol (Coreg) 12.5 mg PO BID [facility] Last Admin: 10/28/16 10:39 Dose: 12.5 mg Docusate Sodium (Colace) 100 mg PO BID [facility] Last Admin: 10/28/16 10:39 Dose: 100 mg Ferrous Sulfate (Feosol) 325 mg PO DAILY [facility] Last Admin: 10/27/16 10:58 Dose: Not Given Furosemide (Lasix) 40 mg PO DAILY [facility] Last Admin: 10/28/16 10:38 Dose: 40 mg Piperacillin Sod/Tazobactam Sod (Zosyn 2.25 Gm Iv Premix) 2.25 gm in 50 mls @ 100 mls/hr IVPB Q8H [facility] Last Admin: 10/28/16 11:33 Dose: 100 mls/hr Heparin Sodium/Sodium Chloride (Heparin 84542 Units/250ml 1/2 Normal Saline) 25 ,000 units in 250 mls @ 4.491 mls/hr IV .Q24H PRN; Protocol; 6 UNITS/KG/HR PRN Reason: PROTOCOL Morphine Sulfate (Morphine) 1 mg IVP Q4 PRN PRN Reason: Pain, moderate (4-7) Last Admin: 10/28/16 07:53 Dose: 1 mg Rosuvastatin Calcium (Crestor) 2.5 mg PO HS [facility] Last Admin: 10/27/16 23:00 Dose: Not Given - Labs Labs: 10/27/16 08:13 PT 11.5 SECONDS (9.7-12.2) 10/26/16 18:15 INR 1.0 10/26/16 18:15 APTT 27 SECONDS (21-34) 10/26/16 18:15 - Constitutional Appears: Well, Non-toxic, No Acute Distress - Extremities Exam Additional comments: Bilateral foot examination: Vascular: DP pulse faintly palpable 1/4 bilaterally; PT pulse non-palpable, aucultated via doppler. Capillary fill time prolonged in all digits >4 secs to all digits Right hallux, 2nd, & 4th digits appear pale, blanched, and cool to touch. . Neuro: light touch sensation and motor function grossly intact Derm: Right hallux appears to be ischemic with no evidence of open wounds; Right hallux toenail is absent; no edema, no erythema, no open lesions; no clinical signs of infection noted. Right distal 5th digit showing darkening ischemic changes. Ortho: significant pain elicited upon palpation of the Right hallux - Neurological Exam Neurological Exam: Alert, Awake, Oriented x3 - Psychiatric Exam Psychiatric exam: Normal Affect, Normal Mood Assessment and Plan - Assessment and Plan (Free Text) Assessment: 51 y/o female with ischemic changes noted to the right forefoot secondary to PVD. Plan: Patient seen and evaluated at bedside. Discussed with attending, Dr. Aldrich, who was made aware of changes and endorses the following plan. Labs and vitals reviewed. 24 hour T-max=99.9F Arterial duplex studies pending- will follow-up on report - Discussed the importance of CTA as well as potential risk of PVD effect on foot absent vascular assessment and/or intervention, including but not limited to: foot gangrene, infection, segmental right foot and leg amputation(s), and threat to life. Pt upon explanation amenable to CTA and medical optimization needed prior to scan. Podiatry to follow while patient remains in house
--- NOTE | 2016-10-28 14:18 | CP.PCM.PN ---
Subjective - Date & Time of Evaluation Date of Evaluation: 10/28/16 Time of Evaluation: 14:15 - Subjective Subjective: Hospitalist (Covering Dr. Lord) Patient seen, examined at bedside. Patient very upset following conversation with podiatry resident. She also does not want amputation of big toe. She reports she wants to follow plan by Dr Clark and get the CT scan. I read prior notes, patient had intially refused the Prednisone aspect required for the CT scan but I believe now she will permit. Patient denies fever, denies chills, denies chest pain, denies shortness of breathe, denies abdominal pain, denies nausea, denies vomitting, reports constipation, has not had bowel movement since last Saturday and reports she gets peritoneal dialysis daily. Objective - Vital Signs/Intake and Output Vital Signs (last 24 hours): Temp Pulse Resp BP Pulse Ox 98.3 F 93 H 16 152/71 H 97 10/28/16 11:22 10/28/16 11:22 10/28/16 11:22 10/28/16 11:22 10/28/16 11:22 Intake and Output: 10/28/16 10/28/16 06:59 18:59 Intake Total 360 Output Total 200 Balance 160 - Medications Medications: Current Medications Albuterol Sulfate (Albuterol 0.083% Inhal Jojo (2.5 Mg/3 Ml) Ud) 2.5 mg IH RQ4 [facility] Last Admin: 10/28/16 11:45 Dose: Not Given Amlodipine Besylate (Norvasc) 10 mg PO DAILY [facility] Last Admin: 10/28/16 10:39 Dose: 10 mg Aspirin (Ecotrin) 81 mg PO DAILY [facility] Last Admin: 10/28/16 10:39 Dose: 81 mg Calcium Acetate (Phoslo) 667 mg PO TIDCC [facility] Last Admin: 10/28/16 11:33 Dose: 667 mg Carvedilol (Coreg) 12.5 mg PO BID [facility] Last Admin: 10/28/16 10:39 Dose: 12.5 mg Docusate Sodium (Colace) 100 mg PO BID [facility] Last Admin: 10/28/16 10:39 Dose: 100 mg Ferrous Sulfate (Feosol) 325 mg PO DAILY [facility] Last Admin: 10/27/16 10:58 Dose: Not Given Furosemide (Lasix) 40 mg PO DAILY [facility] Last Admin: 10/28/16 10:38 Dose: 40 mg Piperacillin Sod/Tazobactam Sod (Zosyn 2.25 Gm Iv Premix) 2.25 gm in 50 mls @ 100 mls/hr IVPB Q8H [facility] Last Admin: 10/28/16 11:33 Dose: 100 mls/hr Heparin Sodium/Sodium Chloride (Heparin 17634 Units/250ml 1/2 Normal Saline) 25 ,000 units in 250 mls @ 4.491 mls/hr IV .Q24H PRN; Protocol; 6 UNITS/KG/HR PRN Reason: PROTOCOL Morphine Sulfate (Morphine) 1 mg IVP Q4 PRN PRN Reason: Pain, moderate (4-7) Last Admin: 10/28/16 07:53 Dose: 1 mg Rosuvastatin Calcium (Crestor) 2.5 mg PO HS [facility] Last Admin: 10/27/16 23:00 Dose: Not Given - Labs Labs: 10/27/16 08:13 PT 11.5 SECONDS (9.7-12.2) 10/26/16 18:15 INR 1.0 10/26/16 18:15 APTT 27 SECONDS (21-34) 10/26/16 18:15 - Constitutional Appears: In Acute Distress - Head Exam Head Exam: NORMAL INSPECTION - Eye Exam Eye Exam: EOMI - ENT Exam ENT Exam: Mucous Membranes Moist - Respiratory Exam Respiratory Exam: Clear to Ausculation Bilateral, NORMAL BREATHING PATTERN. absent: Rales, Rhonchi, Wheezes - Cardiovascular Exam Cardiovascular Exam: REGULAR RHYTHM, +S1, +S2 - GI/Abdominal Exam GI & Abdominal Exam: Soft, Normal Bowel Sounds. absent: Distended, Firm, Guarding, Rigid, Tenderness, Rebound - Extremities Exam Extremities Exam: Pedal Edema (trace b/l lower extremities) Additional comments: patient has equal sensation bilateral, L4,L5,S1 intact. Patent's right big appears pink-purple and reports sensation. - Neurological Exam Neurological Exam: Alert, Awake, Oriented x3 - Psychiatric Exam Psychiatric exam: Anxious - Skin Skin Exam: Dry, Normal Color, Warm Assessment and Plan - Assessment and Plan (Free Text) Assessment: 51 year-old female with a multiple medical history, hypertension, end-stage renal disease on dialysis, history of pneumonia, receiving peritoneal dialysis. * Patient was seen by rod puller and coiler and vascular surgeon. * Patient advised to have a CT angiogram of the abdomen and pelvis in the lower extremities as recommended by vascular surgery, which she is now agreeable to and she is now agreeable to the prednisone. * Explained to the patient at bedside she has history of diabetes which can impact her vasculature including her big toe. She has expressed she does not want amputation of big toe, and wants to complete CT Angio as previously discussed with vascular surgery. * Patient is on pain medication, on antibiotic. * Patient has not had a bowel movement since Saturday-->will give Miralax which she reports she has tolerated in the past.
[2016-10-28] MEDS ORDERED: POLYETHYLENE GLYCOL 3350 17 GM/Dose PACKET PO ONE (14:30)
[2016-10-28] MEDS: Rosuvastatin Calcium 2.5 mg Tab PO SCH (21:42)
[2016-10-29] MEDS: Albuterol 0.083% Inhal Sol (2.5 mg/3 mL) UD IH SCH ×7 (00:07→23:34)
[2016-10-29] MEDS: Piperacill/Tazo 2.25gm in Dex 2.25 GM/50 ML BAG IVPB SCH ×3 (02:48→19:07)
--- NOTE | 2016-10-29 11:36 | CP.PCM.PN ---
Subjective - Date & Time of Evaluation Date of Evaluation: 10/29/16 Time of Evaluation: 11:32 - Subjective Subjective: PD going well- has home cycler BP increased - likely from addition of steroids Awaiting CTA- on steroids for allergic reaction prevention BSs increased - due to PD solution and steroids right toe #1 demarcating- has purplish hue No recent labs- needs repeat Receiving IV ABs; no new discharges from toe area No n, v, SOB, CPs, f, chills, diarrhea, HAs Objective - Vital Signs/Intake and Output Vital Signs (last 24 hours): Temp Pulse Resp BP Pulse Ox 97.8 F 89 20 161/79 H 95 10/29/16 08:21 10/29/16 08:21 10/29/16 08:21 10/29/16 09:02 10/29/16 08:21 Intake and Output: 10/29/16 10/29/16 06:59 18:59 Intake Total 400 Balance 400 - Medications Medications: Current Medications Albuterol Sulfate (Albuterol 0.083% Inhal Jojo (2.5 Mg/3 Ml) Ud) 2.5 mg IH RQ4 [facility] Last Admin: 10/29/16 08:11 Dose: Not Given Amlodipine Besylate (Norvasc) 10 mg PO DAILY [facility] Last Admin: 10/28/16 10:39 Dose: 10 mg Aspirin (Ecotrin) 81 mg PO DAILY [facility] Last Admin: 10/29/16 09:02 Dose: 81 mg Calcium Acetate (Phoslo) 667 mg PO TIDCC [facility] Last Admin: 10/29/16 08:39 Dose: 667 mg Carvedilol (Coreg) 12.5 mg PO BID [facility] Last Admin: 10/29/16 09:02 Dose: 12.5 mg Diphenhydramine HCl (Benadryl) 50 mg PO ONCE ONE Stop: 10/29/16 14:31 Docusate Sodium (Colace) 100 mg PO BID [facility] Last Admin: 10/29/16 09:02 Dose: Not Given Ferrous Sulfate (Feosol) 325 mg PO DAILY [facility] Last Admin: 10/28/16 14:45 Dose: Not Given Furosemide (Lasix) 40 mg PO DAILY [facility] Last Admin: 10/29/16 09:01 Dose: 40 mg Piperacillin Sod/Tazobactam Sod (Zosyn 2.25 Gm Iv Premix) 2.25 gm in 50 mls @ 100 mls/hr IVPB Q8H [facility] Last Admin: 10/29/16 02:48 Dose: 100 mls/hr Heparin Sodium/Sodium Chloride (Heparin 02507 Units/250ml 1/2 Normal Saline) 25 ,000 units in 250 mls @ 4.491 mls/hr IV .Q24H PRN; Protocol; 6 UNITS/KG/HR PRN Reason: PROTOCOL Morphine Sulfate (Morphine) 1 mg IVP Q4 PRN PRN Reason: Pain, moderate (4-7) Last Admin: 10/29/16 03:45 Dose: 1 mg Prednisone (Prednisone Tab) 50 mg PO Q6H [facility] Stop: 10/29/16 14:31 Last Admin: 10/29/16 08:39 Dose: 50 mg Rosuvastatin Calcium (Crestor) 2.5 mg PO HS [facility] Last Admin: 10/28/16 21:42 Dose: 2.5 mg - Labs Labs: 10/27/16 08:13 PT 11.5 SECONDS (9.7-12.2) 10/26/16 18:15 INR 1.0 10/26/16 18:15 APTT 27 SECONDS (21-34) 10/26/16 18:15 - Constitutional Appears: No Acute Distress, Chronically Ill - Head Exam Head Exam: ATRAUMATIC, NORMAL INSPECTION - Eye Exam Eye Exam: EOMI, Normal appearance - Neck Exam Neck Exam: Normal Inspection. absent: Tenderness - Respiratory Exam Respiratory Exam: Clear to Ausculation Bilateral, NORMAL BREATHING PATTERN - Cardiovascular Exam Cardiovascular Exam: REGULAR RHYTHM, +S1 - GI/Abdominal Exam GI & Abdominal Exam: Soft. absent: Tenderness - Extremities Exam Extremities Exam: Normal Inspection, Tenderness - Neurological Exam Neurological Exam: Alert, CN II-XII Intact - Skin Skin Exam: Dry, Warm Assessment and Plan (1) Type 2 diabetes mellitus with diabetic nephropathy Status: Acute (2) Chronic anemia Status: Acute (3) Foot infection Status: Acute (4) Lower limb ischemia Status: Acute (5) ESRD on peritoneal dialysis Status: Acute (6) Hypertension Status: Acute - Assessment and Plan (Free Text) Plan: Same PD DM management of BSs as per PMD Increase BP meds Add EPO Repeat labs CTA in AM and vascular follow up
--- NOTE | 2016-10-29 11:50 | CP.PCM.PN ---
Subjective - Date & Time of Evaluation Date of Evaluation: 10/29/16 Time of Evaluation: 11:48 - Subjective Subjective: 51 y/o female patient at bedside this morning concerning right foot ischemic changes. No dressing is applied to right foot as there is no open wound. She denies any recent F/C/SOB/CP. No other pedal complaints reported at this time. Pt is opting for CT-Angio now. Patient states that she is now concerned that her right big toe color is turning dark. Patient denies of any overnight distress. She denies of any N/V/F/C or SOB today Objective - Vital Signs/Intake and Output Vital Signs (last 24 hours): Temp Pulse Resp BP Pulse Ox 97.8 F 89 20 161/79 H 95 10/29/16 08:21 10/29/16 08:21 10/29/16 08:21 10/29/16 09:02 10/29/16 08:21 Intake and Output: 10/29/16 10/29/16 06:59 18:59 Intake Total 400 Balance 400 - Medications Medications: Current Medications Albuterol Sulfate (Albuterol 0.083% Inhal Jojo (2.5 Mg/3 Ml) Ud) 2.5 mg IH RQ4 [facility] Last Admin: 10/29/16 08:11 Dose: Not Given Amlodipine Besylate (Norvasc) 10 mg PO DAILY [facility] Last Admin: 10/29/16 11:43 Dose: Not Given Amlodipine Besylate (Norvasc) 5 mg PO DAILY [facility] Aspirin (Ecotrin) 81 mg PO DAILY [facility] Last Admin: 10/29/16 09:02 Dose: 81 mg Calcium Acetate (Phoslo) 667 mg PO TIDCC [facility] Last Admin: 10/29/16 08:39 Dose: 667 mg Carvedilol (Coreg) 12.5 mg PO BID [facility] Last Admin: 10/29/16 09:02 Dose: 12.5 mg Diphenhydramine HCl (Benadryl) 50 mg PO ONCE ONE Stop: 10/29/16 14:31 Docusate Sodium (Colace) 100 mg PO BID [facility] Last Admin: 10/29/16 09:02 Dose: Not Given Epoetin Alec (Procrit) 10,000 unit [facility] Ferrous Sulfate (Feosol) 325 mg PO DAILY [facility] Last Admin: 10/29/16 11:44 Dose: Not Given Furosemide (Lasix) 40 mg PO DAILY [facility] Last Admin: 10/29/16 09:01 Dose: 40 mg Piperacillin Sod/Tazobactam Sod (Zosyn 2.25 Gm Iv Premix) 2.25 gm in 50 mls @ 100 mls/hr IVPB Q8H [facility] Last Admin: 10/29/16 02:48 Dose: 100 mls/hr Heparin Sodium/Sodium Chloride (Heparin 69138 Units/250ml 1/2 Normal Saline) 25 ,000 units in 250 mls @ 4.491 mls/hr IV .Q24H PRN; Protocol; 6 UNITS/KG/HR PRN Reason: PROTOCOL Insulin Glargine (Lantus) 20 unit SC ACHS [facility] Morphine Sulfate (Morphine) 1 mg IVP Q4 PRN PRN Reason: Pain, moderate (4-7) Last Admin: 10/29/16 03:45 Dose: 1 mg Prednisone (Prednisone Tab) 50 mg PO Q6H [facility] Stop: 10/29/16 14:31 Last Admin: 10/29/16 08:39 Dose: 50 mg Rosuvastatin Calcium (Crestor) 2.5 mg PO HS [facility] Last Admin: 10/28/16 21:42 Dose: 2.5 mg - Labs Labs: 10/27/16 08:13 PT 11.5 SECONDS (9.7-12.2) 10/26/16 18:15 INR 1.0 10/26/16 18:15 APTT 27 SECONDS (21-34) 10/26/16 18:15 - Constitutional Appears: Well, Non-toxic, No Acute Distress - Extremities Exam Additional comments: Bilateral foot examination: Vascular: DP pulse faintly palpable 1/4 bilaterally; PT pulse non-palpable, aucultated via doppler. Capillary fill time prolonged in all digits >4 secs to all digits Right hallux, 2nd, & 4th digits appear pale, blanched, and cool to touch. . Neuro: light touch sensation and motor function grossly intact Derm: Slight dark dusky discoloration noted to Right hallux consistent with ischemic changes to the digit. No open wound noted; Right hallux toenail is absent; no edema, no erythema, no open lesions; no clinical signs of infection noted. Right distal 5th digit showing darkening ischemic changes. Plantar mid foot area also appear slightly dusky as well. No open wound noted. Ortho: significant pain elicited upon palpation of the Right hallux - Neurological Exam Neurological Exam: Alert, Awake, Oriented x3 - Psychiatric Exam Psychiatric exam: Normal Affect, Normal Mood - Skin Skin Exam: Normal Color, Warm Assessment and Plan - Assessment and Plan (Free Text) Assessment: 51 y/o female with ischemic changes noted to the right forefoot secondary to PVD. Plan: Patient seen and evaluated at bedside. Discussed with attending, Dr. Aldrich, who was made aware of changes and endorses the following plan. Labs and vitals reviewed. Blood sugar 500 mg/dL this morning Arterial duplex studies pending- will follow-up on report Discussed the importance of CTA as well as potential risk of PVD effect on foot absent vascular assessment and/or intervention, including but not limited to: foot gangrene, infection, segmental right foot and leg amputation(s), and threat to life. Pt upon explanation amenable to CTA and medical optimization needed prior to scan. Patient now opting for CT Angio Podiatry to follow while patient remains in house
[2016-10-29] MEDS: (Novolin R) Insulin Human Regular 100 units/ml vial SC SCH ×3 (12:35→22:16)
[2016-10-29] MEDS: EPOETIN ALFA 10,000 UNIT/ML ML SC SCH (12:49)
--- NOTE | 2016-10-29 13:11 | CP.PCM.PN ---
Subjective - Date & Time of Evaluation Date of Evaluation: 10/29/16 Time of Evaluation: 07:00 - Subjective Subjective: VASCULAR SURGERY PROGRESS NOTE FOR DR. SANTIAGO Patient seen and examined at bedside. Patient does not have any pedal complaints. Patient is now agreeable to having CTA done and receiving the Prednisone. So far, she has received 2 of the 3 doses as per [place] Protocol. Objective - Vital Signs/Intake and Output Vital Signs (last 24 hours): Temp Pulse Resp BP Pulse Ox 97.8 F 89 20 161/79 H 95 10/29/16 08:21 10/29/16 08:21 10/29/16 08:21 10/29/16 09:02 10/29/16 08:21 Intake and Output: 10/29/16 10/29/16 06:59 18:59 Intake Total 400 Balance 400 - Medications Medications: Current Medications Albuterol Sulfate (Albuterol 0.083% Inhal Jojo (2.5 Mg/3 Ml) Ud) 2.5 mg IH RQ4 [facility] Last Admin: 10/29/16 08:11 Dose: Not Given Amlodipine Besylate (Norvasc) 10 mg PO DAILY [facility] Last Admin: 10/29/16 12:55 Dose: 10 mg Aspirin (Ecotrin) 81 mg PO DAILY [facility] Last Admin: 10/29/16 09:02 Dose: 81 mg Calcium Acetate (Phoslo) 667 mg PO TIDCC [facility] Last Admin: 10/29/16 12:40 Dose: 667 mg Carvedilol (Coreg) 12.5 mg PO BID [facility] Last Admin: 10/29/16 09:02 Dose: 12.5 mg Diphenhydramine HCl (Benadryl) 50 mg PO ONCE ONE Stop: 10/29/16 14:31 Docusate Sodium (Colace) 100 mg PO BID [facility] Last Admin: 10/29/16 09:02 Dose: Not Given Epoetin Alec (Procrit) 10,000 unit SC MWF [facility] Last Admin: 10/29/16 12:49 Dose: 10,000 unit Ferrous Sulfate (Feosol) 325 mg PO DAILY [facility] Last Admin: 10/29/16 11:44 Dose: Not Given Furosemide (Lasix) 40 mg PO DAILY [facility] Last Admin: 10/29/16 09:01 Dose: 40 mg Piperacillin Sod/Tazobactam Sod (Zosyn 2.25 Gm Iv Premix) 2.25 gm in 50 mls @ 100 mls/hr IVPB Q8H [facility] Last Admin: 10/29/16 12:41 Dose: 100 mls/hr Heparin Sodium/Sodium Chloride (Heparin 53826 Units/250ml 1/2 Normal Saline) 25 ,000 units in 250 mls @ 4.491 mls/hr IV .Q24H PRN; Protocol; 6 UNITS/KG/HR PRN Reason: PROTOCOL Insulin Glargine (Lantus) 20 unit SC Q12 [facility] Insulin Human Regular (Novolin R) 0 unit SC ACHS [facility] PRN Reason: Protocol Last Admin: 10/29/16 12:35 Dose: 10 unit Morphine Sulfate (Morphine) 1 mg IVP Q4 PRN PRN Reason: Pain, moderate (4-7) Last Admin: 10/29/16 03:45 Dose: 1 mg Prednisone (Prednisone Tab) 50 mg PO Q6H [facility] Stop: 10/29/16 14:31 Last Admin: 10/29/16 08:39 Dose: 50 mg Rosuvastatin Calcium (Crestor) 2.5 mg PO HS [facility] Last Admin: 10/28/16 21:42 Dose: 2.5 mg - Labs Labs: 10/27/16 08:13 PT 11.5 SECONDS (9.7-12.2) 10/26/16 18:15 INR 1.0 10/26/16 18:15 APTT 27 SECONDS (21-34) 10/26/16 18:15 - Constitutional Appears: Non-toxic, No Acute Distress - Respiratory Exam Respiratory Exam: NORMAL BREATHING PATTERN. absent: Respiratory Distress - Cardiovascular Exam Cardiovascular Exam: +S1, +S2 - Extremities Exam Additional comments: dark ischemic changes to right 1st and 5th toe. Right big toenail absent. Faint DP pulse PT pulse signal via doppler Assessment and Plan - Assessment and Plan (Free Text) Assessment: 51yo F with PMHx of HTN, DM, ESRD on peritoneal dialysis, with possible ischemic changes to right 1st and 5th toes, vascular surgery consulted to evaluate PVD - Podiatry following - Patient now agreeing for CTA - Due to patient's allergy for shrimp, 3 doses of 50mg Prednisone and 1 dose of Benadryl were ordered according to [place] protocol guidelines prior to the anticipated CTA - 50mg PO Prednisone to be given 13 hours prior, 7 hours prior, and 1 hour prior to CTA and Benadryl 1 hour prior to CTA - Discussed plan with Dr. Eduardo Chin PGY-2
--- NOTE | 2016-10-29 14:03 | CP.PCM.PN ---
Subjective - Date & Time of Evaluation Date of Evaluation: 10/29/16 Time of Evaluation: 14:02 - Subjective Subjective: detailed discussion with patient re diagnosis , recommended Rx and need for imaging She agreed. Objective - Vital Signs/Intake and Output Vital Signs (last 24 hours): Temp Pulse Resp BP Pulse Ox 97.8 F 89 20 161/79 H 95 10/29/16 08:21 10/29/16 08:21 10/29/16 08:21 10/29/16 09:02 10/29/16 08:21 Intake and Output: 10/29/16 10/29/16 06:59 18:59 Intake Total 400 Balance 400 - Medications Medications: Current Medications Albuterol Sulfate (Albuterol 0.083% Inhal Jojo (2.5 Mg/3 Ml) Ud) 2.5 mg IH RQ4 [facility] Last Admin: 10/29/16 13:45 Dose: Not Given Amlodipine Besylate (Norvasc) 10 mg PO DAILY [facility] Last Admin: 10/29/16 12:55 Dose: 10 mg Aspirin (Ecotrin) 81 mg PO DAILY [facility] Last Admin: 10/29/16 09:02 Dose: 81 mg Calcium Acetate (Phoslo) 667 mg PO TIDCC [facility] Last Admin: 10/29/16 12:40 Dose: 667 mg Carvedilol (Coreg) 12.5 mg PO BID [facility] Last Admin: 10/29/16 09:02 Dose: 12.5 mg Diphenhydramine HCl (Benadryl) 50 mg PO ONCE ONE Stop: 10/29/16 14:31 Docusate Sodium (Colace) 100 mg PO BID [facility] Last Admin: 10/29/16 09:02 Dose: Not Given Epoetin Alec (Procrit) 10,000 unit SC MWF [facility] Last Admin: 10/29/16 12:49 Dose: 10,000 unit Ferrous Sulfate (Feosol) 325 mg PO DAILY [facility] Last Admin: 10/29/16 11:44 Dose: Not Given Furosemide (Lasix) 40 mg PO DAILY [facility] Last Admin: 10/29/16 09:01 Dose: 40 mg Piperacillin Sod/Tazobactam Sod (Zosyn 2.25 Gm Iv Premix) 2.25 gm in 50 mls @ 100 mls/hr IVPB Q8H [facility] Last Admin: 10/29/16 12:41 Dose: 100 mls/hr Heparin Sodium/Sodium Chloride (Heparin 19456 Units/250ml 1/2 Normal Saline) 25 ,000 units in 250 mls @ 4.491 mls/hr IV .Q24H PRN; Protocol; 6 UNITS/KG/HR PRN Reason: PROTOCOL Insulin Glargine (Lantus) 20 unit SC Q12 [facility] Insulin Human Regular (Novolin R) 0 unit SC ACHS [facility] PRN Reason: Protocol Last Admin: 10/29/16 12:35 Dose: 10 unit Morphine Sulfate (Morphine) 1 mg IVP Q4 PRN PRN Reason: Pain, moderate (4-7) Last Admin: 10/29/16 03:45 Dose: 1 mg Prednisone (Prednisone Tab) 50 mg PO Q6H [facility] Stop: 10/29/16 14:31 Last Admin: 10/29/16 08:39 Dose: 50 mg Rosuvastatin Calcium (Crestor) 2.5 mg PO HS [facility] Last Admin: 10/28/16 21:42 Dose: 2.5 mg - Labs Labs: 10/27/16 08:13 PT 11.5 SECONDS (9.7-12.2) 10/26/16 18:15 INR 1.0 10/26/16 18:15 APTT 27 SECONDS (21-34) 10/26/16 18:15
[2016-10-29] MEDS ORDERED: (Lantus) Insulin Glargine, Recombinant SC SCH ×2 (16:30→22:00)
--- NOTE | 2016-10-29 19:31 | CP.PCM.PN ---
Subjective - Date & Time of Evaluation Date of Evaluation: 10/29/16 Time of Evaluation: 19:28 - Subjective Subjective: finally pt agreed to have a CT scan of the abdomen and pelvis, with iv contrast. It was done today. This result awaiting. Patient is currently complaining of increasing pain in the right foot. The pulse in the distal arteries are dopplerable. Patient is having significant demarcation of the right great toe. Less pain today. No nausea vomiting, diarrhea noted. Currently going to get the peritoneal dialysis Objective - Vital Signs/Intake and Output Vital Signs (last 24 hours): Temp Pulse Resp BP Pulse Ox 98.6 F 90 20 159/80 H 96 10/29/16 15:32 10/29/16 15:32 10/29/16 15:32 10/29/16 17:35 10/29/16 15:32 Intake and Output: 10/29/16 10/30/16 18:59 06:59 Intake Total 650 Balance 650 Vital signs reviewed No neck vein distention noted Chest good air entry bilaterally, no wheezing or rales noted CVS regular heart sound, no murmur noted Abdomen soft, nontender. Changing in the discoloration of the right great toe noted. Edema noted. [employer] alert awake oriented 3, no functional neurological deficit - Medications Medications: Current Medications Albuterol Sulfate (Albuterol 0.083% Inhal Jojo (2.5 Mg/3 Ml) Ud) 2.5 mg IH RQ4 [facility] Last Admin: 10/29/16 16:26 Dose: Not Given Amlodipine Besylate (Norvasc) 10 mg PO DAILY [facility] Last Admin: 10/29/16 12:55 Dose: 10 mg Aspirin (Ecotrin) 81 mg PO DAILY [facility] Last Admin: 10/29/16 09:02 Dose: 81 mg Calcium Acetate (Phoslo) 667 mg PO TIDCC [facility] Last Admin: 10/29/16 17:33 Dose: 667 mg Carvedilol (Coreg) 12.5 mg PO BID [facility] Last Admin: 10/29/16 17:35 Dose: 12.5 mg Docusate Sodium (Colace) 100 mg PO BID [facility] Last Admin: 10/29/16 17:38 Dose: Not Given Epoetin Alec (Procrit) 10,000 unit SC MWF [facility] Last Admin: 10/29/16 12:49 Dose: 10,000 unit Ferrous Sulfate (Feosol) 325 mg PO DAILY [facility] Last Admin: 10/29/16 11:44 Dose: Not Given Furosemide (Lasix) 40 mg PO DAILY [facility] Last Admin: 10/29/16 09:01 Dose: 40 mg Heparin Sodium (Porcine) (Heparin) 5,000 units SC Q8 [facility] Piperacillin Sod/Tazobactam Sod (Zosyn 2.25 Gm Iv Premix) 2.25 gm in 50 mls @ 100 mls/hr IVPB Q8H [facility] Last Admin: 10/29/16 19:07 Dose: 100 mls/hr Insulin Glargine (Lantus) 20 unit SC HS [facility] Insulin Human Regular (Novolin R) 0 unit SC ACHS [facility] PRN Reason: Protocol Last Admin: 10/29/16 17:30 Dose: 4 unit Morphine Sulfate (Morphine) 1 mg IVP Q4 PRN PRN Reason: Pain, moderate (4-7) Last Admin: 10/29/16 18:53 Dose: 1 mg Rosuvastatin Calcium (Crestor) 2.5 mg PO HS [facility] Last Admin: 10/28/16 21:42 Dose: 2.5 mg - Labs Labs: 10/27/16 08:13 PT 11.5 SECONDS (9.7-12.2) 10/26/16 18:15 INR 1.0 10/26/16 18:15 APTT 27 SECONDS (21-34) 10/26/16 18:15 Assessment and Plan (1) Foot infection Status: Acute (2) Lower limb ischemia Assessment & Plan: Patient admitted with the peripheral severe peripheral vascular disease, and ischemic changes. And associated gangrene noted. Currently an antibiotic. We'll get the reports of the CAT scan. Vascular follow-up will follow the patient Glucose control Status: Acute (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
--- NOTE | 2016-10-29 21:23 | CP.PCM.PN ---
Subjective - Date & Time of Evaluation Date of Evaluation: 10/28/16 Time of Evaluation: 08:15 - Subjective Subjective: Patient denies chest pain and dyspnea Still some pain in the leg Objective - Vital Signs/Intake and Output Vital Signs (last 24 hours): Temp Pulse Resp BP Pulse Ox 98.6 F 90 20 159/80 H 96 10/29/16 15:32 10/29/16 15:32 10/29/16 15:32 10/29/16 17:35 10/29/16 15:32 Intake and Output: 10/29/16 10/30/16 18:59 06:59 Intake Total 650 Balance 650 - Medications Medications: Current Medications Albuterol Sulfate (Albuterol 0.083% Inhal Jojo (2.5 Mg/3 Ml) Ud) 2.5 mg IH RQ4 [facility] Last Admin: 10/29/16 21:09 Dose: Not Given Amlodipine Besylate (Norvasc) 10 mg PO DAILY [facility] Last Admin: 10/29/16 12:55 Dose: 10 mg Aspirin (Ecotrin) 81 mg PO DAILY [facility] Last Admin: 10/29/16 09:02 Dose: 81 mg Calcium Acetate (Phoslo) 667 mg PO TIDCC [facility] Last Admin: 10/29/16 17:33 Dose: 667 mg Carvedilol (Coreg) 12.5 mg PO BID [facility] Last Admin: 10/29/16 17:35 Dose: 12.5 mg Docusate Sodium (Colace) 100 mg PO BID [facility] Last Admin: 10/29/16 17:38 Dose: Not Given Epoetin Alec (Procrit) 10,000 unit SC MWF [facility] Last Admin: 10/29/16 12:49 Dose: 10,000 unit Ferrous Sulfate (Feosol) 325 mg PO DAILY [facility] Last Admin: 10/29/16 11:44 Dose: Not Given Furosemide (Lasix) 40 mg PO DAILY [facility] Last Admin: 10/29/16 09:01 Dose: 40 mg Heparin Sodium (Porcine) (Heparin) 5,000 units SC Q8 [facility] Piperacillin Sod/Tazobactam Sod (Zosyn 2.25 Gm Iv Premix) 2.25 gm in 50 mls @ 100 mls/hr IVPB Q8H [facility] Last Admin: 10/29/16 19:07 Dose: 100 mls/hr Insulin Glargine (Lantus) 20 unit SC HS [facility] Insulin Human Regular (Novolin R) 0 unit SC ACHS [facility] PRN Reason: Protocol Last Admin: 10/29/16 17:30 Dose: 4 unit Morphine Sulfate (Morphine) 1 mg IVP Q4 PRN PRN Reason: Pain, moderate (4-7) Last Admin: 10/29/16 18:53 Dose: 1 mg Rosuvastatin Calcium (Crestor) 2.5 mg PO HS [facility] Last Admin: 10/28/16 21:42 Dose: 2.5 mg - Labs Labs: 10/27/16 08:13 PT 11.5 SECONDS (9.7-12.2) 10/26/16 18:15 INR 1.0 10/26/16 18:15 APTT 27 SECONDS (21-34) 10/26/16 18:15
[2016-10-29] MEDS: (Lantus) Insulin Glargine, Recombinant SC SCH (22:15)
[2016-10-29] MEDS: Rosuvastatin Calcium 2.5 mg Tab PO SCH (22:16)
--- NOTE | 2016-10-29 22:34 | CT ---
EXAM: CT Angiography Abdomen and Pelvis With Runoff to the Lower Extremities With Intravenous Contrast CLINICAL HISTORY: 51 years old, female; Condition or disease; Peripheral vascular disease; Patient HX: Left foot infection; Additional info: Pvd TECHNIQUE: Axial computed tomographic angiography images of the abdomen, pelvis and lower extremities with intravenous contrast using CT angiography protocol. This CT exam was performed using one or more of the following dose reduction techniques: automated exposure control, adjustment of the mA and/or kV according to patient size, and/or use of iterative reconstruction technique. MIP reconstructed images were created and reviewed. Coronal and sagittal reformatted images were created and reviewed. CONTRAST: 150 mL of omnipaque 350 administered intravenously. EXAM DATE/TIME: 10/29/2016 3:30 PM COMPARISON: No relevant prior studies available. FINDINGS: LOWER THORAX: No infiltrate seen in the lung bases. VASCULATURE: AORTA: Diffuse atherosclerotic disease of the abdominal aorta, with no evidence of aneurysmal dilatation or dissection. CELIAC TRUNK AND MESENTERIC ARTERIES: Diffuse atherosclerotic disease, with no evidence of occlusion. RENAL ARTERIES: Diffuse atherosclerotic disease, with no evidence of occlusion. RIGHT ILIAC ARTERIES: Diffuse atherosclerotic disease of the right iliac arteries. 50% stenosis of the right common iliac artery. No evidence of occlusion. RIGHT FEMORAL/POPLITEAL ARTERIES: Right superficial femoral artery is heavily calcified and is occluded. It is reconstituted distally. Right popliteal artery is patent. It demonstrates diffuse atherosclerotic disease. There is a 60% stenosis of the right popliteal artery, with no evidence of occlusion. RIGHT CALF/FOOT ARTERIES: Right peroneal artery appears patent. There is a high takeoff of the right anterior tibial artery. The right anterior tibial artery appears patent proximally, however, is heavily calcified and likely occluded throughout the calf. Right posterior tibial artery is heavily calcified, and is likely occluded. LEFT ILIAC ARTERIES: Diffuse atherosclerotic disease of the left iliac arteries, with no evidence of occlusion. LEFT FEMORAL/POPLITEAL ARTERIES: Left superficial femoral artery is heavily calcified and and is occluded. It is reconstituted distally. Left popliteal artery is patent. It demonstrates diffuse atherosclerotic disease, with no evidence of occlusion. LEFT CALF/FOOT ARTERIES: Left peroneal artery is patent. There is a high takeoff of the left anterior tibial artery. The left anterior tibial artery appears patent proximally, however, is heavily calcified and likely occluded throughout the calf. Left posterior tibial artery is heavily calcified and is likely occluded. ABDOMEN: LIVER: Fatty infiltration of the liver. GALLBLADDER AND BILE DUCTS: No evidence of acute cholecystitis. PANCREAS: No evidence of acute pancreatitis. SPLEEN: No acute abnormality of the spleen identified. ADRENALS: No acute abnormality of the adrenal glands identified. KIDNEYS AND URETERS: No acute abnormality identified. STOMACH AND BOWEL: No acute abnormality identified. APPENDIX: No findings to suggest acute appendicitis. PELVIS: BLADDER: No acute abnormality of the bladder is seen. REPRODUCTIVE: Left ovarian/adnexal cystic lesion, measuring 5.3 cm. Pelvic ultrasound is recommended for further evaluation. ABDOMEN, PELVIS and LOWER EXTREMITIES: INTRAPERITONEAL SPACE: No significant fluid collection. No free air. BONES/JOINTS: No acute bony abnormality identified. LYMPH NODES: No evidence of diffuse lymphadenopathy. IMPRESSION: - Marked, diffuse atherosclerotic disease of the lower extremity arteries bilaterally. - Occlusion of the bilateral superficial femoral arteries, with reconstitution distally and patent bilateral popliteal arteries. - Bilateral anterior and posterior tibial arteries are heavily calcified and likely occluded throughout the calves bilaterally. - Incidental 5.3 cm left ovarian/adnexal cystic lesion, for which followup pelvic ultrasound is recommended. - See above for remaining findings.
[2016-10-30] MEDS: Piperacill/Tazo 2.25gm in Dex 2.25 GM/50 ML BAG IVPB SCH ×3 (03:30→20:05)
[2016-10-30] MEDS: Albuterol 0.083% Inhal Sol (2.5 mg/3 mL) UD IH SCH ×5 (04:10→20:02)
[2016-10-30 07:28] LABS: HEMATOCRIT 25.9 % (34.0-47.0); MEAN CORPUSCULAR HEMOGLOBIN 33.5 pg (27.0-31.0); MEAN CORPUSCULAR HGB CONC 32.5 g/dL (33.0-37.0); MEAN PLATELET VOLUME 9.3 fL (7.2-11.7); RED CELL DISTRIBUTION WIDTH 18.7 % (11.5-14.5)
[2016-10-30 07:36] LABS: WHITE BLOOD COUNT 22.4 K/uL (4.8-10.8)
[2016-10-30 07:45] LABS: BILIRUBIN,TOTAL 0.6 mg/dL (0.2-1.3)
[2016-10-30 07:46] LABS: CALCIUM 7.6 mg/dl (8.6-10.4); PHOSPHOROUS 10.5 mg/dL (2.5-4.5); TOTAL PROTEIN 6.9 g/dL (6.3-8.3)
[2016-10-30] MEDS: (Novolin R) Insulin Human Regular 100 units/ml vial SC SCH ×4 (08:00→21:33)
[2016-10-30] MEDS ORDERED: (Lantus) Insulin Glargine, Recombinant SC STA (08:32)
--- NOTE | 2016-10-30 08:35 | CP.PCM.PN ---
Subjective - Date & Time of Evaluation Date of Evaluation: 10/30/16 Time of Evaluation: 08:34 - Subjective Subjective: Patient is having increasing symptoms of pain in the right leg. Her blood sugar is highly elevated today. Diarrhea noted. Intake is poor. No chest pain, no shortness of breath noted. Demarcation of the right great toe noted in the base of the right great toe Objective - Vital Signs/Intake and Output Vital Signs (last 24 hours): Temp Pulse Resp BP Pulse Ox 98.2 F 87 20 164/83 H 95 10/29/16 23:25 10/29/16 23:25 10/29/16 23:25 10/29/16 23:25 10/29/16 23:25 On examination: HEENT PERRLA, neck supple No thyromegaly was noted and no cervical adenopathy noted Chest bilateral good air entry, no wheezing or rales noted CVS regular heart sound, no murmur Abdomen soft and no organomegaly edema right leg noted. Pale color, and the dark discoloration noted over the up to the base Intake and Output: 10/30/16 10/30/16 06:59 18:59 Intake Total 290 Balance 290 - Medications Medications: Current Medications Albuterol Sulfate (Albuterol 0.083% Inhal Jojo (2.5 Mg/3 Ml) Ud) 2.5 mg IH RQ4 [facility] Last Admin: 10/30/16 04:10 Dose: Not Given Amlodipine Besylate (Norvasc) 10 mg PO DAILY [facility] Last Admin: 10/29/16 12:55 Dose: 10 mg Aspirin (Ecotrin) 81 mg PO DAILY [facility] Last Admin: 10/29/16 09:02 Dose: 81 mg Calcium Acetate (Phoslo) 667 mg PO TIDCC [facility] Last Admin: 10/30/16 07:59 Dose: 667 mg Carvedilol (Coreg) 12.5 mg PO BID [facility] Last Admin: 10/29/16 17:35 Dose: 12.5 mg Epoetin Alec (Procrit) 10,000 unit SC MWF [facility] Last Admin: 10/29/16 12:49 Dose: 10,000 unit Ferrous Sulfate (Feosol) 325 mg PO DAILY [facility] Last Admin: 10/29/16 11:44 Dose: Not Given Furosemide (Lasix) 40 mg PO DAILY [facility] Last Admin: 10/29/16 09:01 Dose: 40 mg Heparin Sodium (Porcine) (Heparin) 5,000 units SC Q8 [facility] Last Admin: 10/30/16 06:00 Dose: Not Given Piperacillin Sod/Tazobactam Sod (Zosyn 2.25 Gm Iv Premix) 2.25 gm in 50 mls @ 100 mls/hr IVPB Q8H [facility] Last Admin: 10/30/16 03:30 Dose: Not Given Insulin Glargine (Lantus) 20 unit SC [facility] Last Admin: 10/29/16 22:15 Dose: 20 units Morphine Sulfate (Morphine) 1 mg IVP Q4 PRN PRN Reason: Pain, moderate (4-7) Last Admin: 10/29/16 18:53 Dose: 1 mg Rosuvastatin Calcium (Crestor) 2.5 mg PO HS [facility] Last Admin: 10/29/16 22:16 Dose: 2.5 mg - Labs Labs: 10/30/16 07:08 10/30/16 07:08 PT 11.5 SECONDS (9.7-12.2) 10/26/16 18:15 INR 1.0 10/26/16 18:15 APTT 27 SECONDS (21-34) 10/26/16 18:15 Assessment and Plan (1) Foot infection Status: Acute (2) Lower limb ischemia Assessment & Plan: Severe atherosclerotic atherosclerotic disease. Peripheral vascular disease. Admitted now with a gangrene. Most likely dry in nature currently. Awaiting was class surgery followup and consultation. Uncontrolled diabetes. Will control the blood sugar of. Will follow the patient Status: Acute (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
--- NOTE | 2016-10-30 11:47 | CP.PCM.PN ---
<Ricky Prieto - Last Filed: 10/30/16 12:00> Subjective - Date & Time of Evaluation Date of Evaluation: 10/30/16 Time of Evaluation: 11:00 - Subjective Subjective: Patient was seen and evaluated at bedside this morning for follow-up on Right foot ischemic changes. Patient was resting comfortably, in NAD. States her pain level is currently 7-8/10. Denies any F/C/N/V/SOB/CP. No other pedal complaints reported at this time. Objective - Vital Signs/Intake and Output Vital Signs (last 24 hours): Temp Pulse Resp BP Pulse Ox 98.0 F 85 20 129/77 96 10/30/16 08:54 10/30/16 08:54 10/30/16 08:54 10/30/16 09:07 10/30/16 08:54 Intake and Output: 10/30/16 10/30/16 06:59 18:59 Intake Total 290 Balance 290 - Medications Medications: Current Medications Albuterol Sulfate (Albuterol 0.083% Inhal Jojo (2.5 Mg/3 Ml) Ud) 2.5 mg IH RQ4 [facility] Last Admin: 10/30/16 04:10 Dose: Not Given Amlodipine Besylate (Norvasc) 10 mg PO DAILY [facility] Last Admin: 10/30/16 09:06 Dose: 10 mg Aspirin (Ecotrin) 81 mg PO DAILY [facility] Last Admin: 10/30/16 09:06 Dose: 81 mg Calcium Acetate (Phoslo) 667 mg PO TIDCC [facility] Last Admin: 10/30/16 07:59 Dose: 667 mg Carvedilol (Coreg) 12.5 mg PO BID [facility] Last Admin: 10/30/16 09:07 Dose: 12.5 mg Epoetin Alec (Procrit) 10,000 unit SC MWF [facility] Last Admin: 10/29/16 12:49 Dose: 10,000 unit Ferrous Sulfate (Feosol) 325 mg PO DAILY [facility] Last Admin: 10/30/16 09:08 Dose: Not Given Furosemide (Lasix) 40 mg PO DAILY [facility] Last Admin: 10/30/16 09:06 Dose: 40 mg Heparin Sodium (Porcine) (Heparin) 5,000 units SC Q8 [facility] Last Admin: 10/30/16 06:00 Dose: Not Given Piperacillin Sod/Tazobactam Sod (Zosyn 2.25 Gm Iv Premix) 2.25 gm in 50 mls @ 100 mls/hr IVPB Q8H [facility] Last Admin: 10/30/16 11:18 Dose: 100 mls/hr Insulin Glargine (Lantus) 20 unit SC HS [facility] Last Admin: 10/29/16 22:15 Dose: 20 units Insulin Human Regular (Novolin R) 0 unit SC ACHS [facility] PRN Reason: Protocol Morphine Sulfate (Morphine) 1 mg IVP Q4 PRN PRN Reason: Pain, moderate (4-7) Last Admin: 10/30/16 09:16 Dose: 1 mg Rosuvastatin Calcium (Crestor) 2.5 mg PO HS [facility] Last Admin: 10/29/16 22:16 Dose: 2.5 mg - Labs Labs: 10/30/16 07:08 10/30/16 07:08 PT 11.5 SECONDS (9.7-12.2) 10/26/16 18:15 INR 1.0 10/26/16 18:15 APTT 27 SECONDS (21-34) 10/26/16 18:15 - Constitutional Appears: Non-toxic, No Acute Distress - Neurological Exam Neurological Exam: Alert, Awake, Oriented x3 - Psychiatric Exam Psychiatric exam: Normal Affect, Normal Mood - Skin Skin Exam: Dry, Warm - Additional Findings Additional findings: Bilateral foot examination: Vascular: DP pulse faintly palpable 1/4 bilaterally; PT pulse non-palpable, aucultated via doppler. Capillary fill time prolonged in all digits >4 secs to all digits Right hallux, 2nd, & 4th digits appear pale, blanched, and cool to touch. . Neuro: light touch sensation and motor function grossly intact Derm: Slight dark dusky discoloration noted to Right hallux consistent with ischemic changes to the digit. No open wound noted; Right hallux toenail is absent; no edema, no erythema, no open lesions; no clinical signs of infection noted. Right distal 5th digit showing darkening ischemic changes. Plantar mid foot area also appear slightly dusky as well. No open wound noted. Ortho: significant pain elicited upon palpation of the Right hallux Assessment and Plan - Assessment and Plan (Free Text) Assessment: 51 y/o female with ischemic changes noted to the Right forefoot secondary to PVD. Plan: Patient was seen and evaluated at bedside Discussed patient in detail with attending, Dr. Aldrich Labs and vitals reviewed: WBC trending up (22.4 as of 10/30); afebrile Right forefoot ischemia has progressed from ischemic hallux to ischemic changes of the 3rd and 5th digits as well CT angio report reviewed: bilateral diffuse arterial atherosclerotic disease noted; occlusion of bilateral SFA; heavy calcification of bilateral anterior and posterior tibial aa. Will follow-up on vascular recommendations as per Dr. Clark Podiatry to follow while patient remains in house <Dre Aldrich D - Last Filed: 10/30/16 13:42> Objective - Vital Signs/Intake and Output Vital Signs (last 24 hours): Temp Pulse Resp BP Pulse Ox 98.0 F 85 20 129/77 96 10/30/16 08:54 10/30/16 08:54 10/30/16 08:54 10/30/16 09:07 10/30/16 08:54 Intake and Output: 10/30/16 10/30/16 06:59 18:59 Intake Total 290 Balance 290 - Medications Medications: Current Medications Albuterol Sulfate (Albuterol 0.083% Inhal Jojo (2.5 Mg/3 Ml) Ud) 2.5 mg IH RQ4 [facility] Last Admin: 10/30/16 13:40 Dose: Not Given Amlodipine Besylate (Norvasc) 10 mg PO DAILY [facility] Last Admin: 10/30/16 09:06 Dose: 10 mg Aspirin (Ecotrin) 81 mg PO DAILY [facility] Last Admin: 10/30/16 09:06 Dose: 81 mg Calcium Acetate (Phoslo) 667 mg PO TIDCC [facility] Last Admin: 10/30/16 11:58 Dose: 667 mg Carvedilol (Coreg) 12.5 mg PO BID [facility] Last Admin: 10/30/16 09:07 Dose: 12.5 mg Epoetin Alec (Procrit) 10,000 unit SC MWF [facility] Last Admin: 10/29/16 12:49 Dose: 10,000 unit Ferrous Sulfate (Feosol) 325 mg PO DAILY [facility] Last Admin: 10/30/16 09:08 Dose: Not Given Furosemide (Lasix) 40 mg PO DAILY [facility] Last Admin: 10/30/16 09:06 Dose: 40 mg Heparin Sodium (Porcine) (Heparin) 5,000 units SC Q8 [facility] Last Admin: 10/30/16 06:00 Dose: Not Given Piperacillin Sod/Tazobactam Sod (Zosyn 2.25 Gm Iv Premix) 2.25 gm in 50 mls @ 100 mls/hr IVPB Q8H [facility] Last Admin: 10/30/16 11:18 Dose: 100 mls/hr Insulin Glargine (Lantus) 20 unit SC [facility] Last Admin: 10/29/16 22:15 Dose: 20 units Insulin Human Regular (Novolin R) 0 unit SC ACHS [facility] PRN Reason: Protocol Last Admin: 10/30/16 11:57 Dose: 12 unit Morphine Sulfate (Morphine) 1 mg IVP Q4 PRN PRN Reason: Pain, moderate (4-7) Last Admin: 10/30/16 09:16 Dose: 1 mg Rosuvastatin Calcium (Crestor) 2.5 mg PO HS [facility] Last Admin: 10/29/16 22:16 Dose: 2.5 mg - Labs Labs: 10/30/16 07:08 10/30/16 07:08 PT 11.5 SECONDS (9.7-12.2) 10/26/16 18:15 INR 1.0 10/26/16 18:15 APTT 27 SECONDS (21-34) 10/26/16 18:15 Attending/Attestation - Attestation I have personally seen and examined this patient.: Yes I have fully participated in the care of the patient.: Yes I have reviewed all pertinent clinical information, including history, physical exam and plan: Yes
--- NOTE | 2016-10-30 14:37 | CP.PCM.PN ---
Subjective - Date & Time of Evaluation Date of Evaluation: 10/30/16 Time of Evaluation: 14:35 - Subjective Subjective: blood sugars in 500 range bp acceptable using home cycler for pd, effluent straw colored, no cloudiness c/o diarrhea since last night also pain in foot Objective - Vital Signs/Intake and Output Vital Signs (last 24 hours): Temp Pulse Resp BP Pulse Ox 98.0 F 85 20 129/77 96 10/30/16 08:54 10/30/16 08:54 10/30/16 08:54 10/30/16 09:07 10/30/16 08:54 Intake and Output: 10/30/16 10/30/16 06:59 18:59 Intake Total 290 Balance 290 - Medications Medications: Current Medications Albuterol Sulfate (Albuterol 0.083% Inhal Jojo (2.5 Mg/3 Ml) Ud) 2.5 mg IH RQ4 [facility] Last Admin: 10/30/16 13:40 Dose: Not Given Amlodipine Besylate (Norvasc) 10 mg PO DAILY [facility] Last Admin: 10/30/16 09:06 Dose: 10 mg Aspirin (Ecotrin) 81 mg PO DAILY [facility] Last Admin: 10/30/16 09:06 Dose: 81 mg Calcium Acetate (Phoslo) 667 mg PO TIDCC [facility] Last Admin: 10/30/16 11:58 Dose: 667 mg Carvedilol (Coreg) 12.5 mg PO BID [facility] Last Admin: 10/30/16 09:07 Dose: 12.5 mg Epoetin Alec (Procrit) 10,000 unit SC MWF [facility] Last Admin: 10/29/16 12:49 Dose: 10,000 unit Ferrous Sulfate (Feosol) 325 mg PO DAILY [facility] Last Admin: 10/30/16 09:08 Dose: Not Given Furosemide (Lasix) 40 mg PO DAILY [facility] Last Admin: 10/30/16 09:06 Dose: 40 mg Heparin Sodium (Porcine) (Heparin) 5,000 units SC Q8 [facility] Last Admin: 10/30/16 13:41 Dose: 5,000 units Piperacillin Sod/Tazobactam Sod (Zosyn 2.25 Gm Iv Premix) 2.25 gm in 50 mls @ 100 mls/hr IVPB Q8H [facility] Last Admin: 10/30/16 11:18 Dose: 100 mls/hr Insulin Glargine (Lantus) 20 unit SC [facility] Last Admin: 10/29/16 22:15 Dose: 20 units Insulin Human Regular (Novolin R) 0 unit SC [facility] PRN Reason: Protocol Last Admin: 10/30/16 11:57 Dose: 12 unit Morphine Sulfate (Morphine) 1 mg IVP Q4 PRN PRN Reason: Pain, moderate (4-7) Last Admin: 10/30/16 09:16 Dose: 1 mg Rosuvastatin Calcium (Crestor) 2.5 mg PO [facility] Last Admin: 10/29/16 22:16 Dose: 2.5 mg - Labs Labs: 10/30/16 07:08 10/30/16 07:08 PT 11.5 SECONDS (9.7-12.2) 10/26/16 18:15 INR 1.0 10/26/16 18:15 APTT 27 SECONDS (21-34) 10/26/16 18:15 - Constitutional Appears: Non-toxic, No Acute Distress - Head Exam Head Exam: NORMAL INSPECTION - Eye Exam Eye Exam: Normal appearance - ENT Exam ENT Exam: Mucous Membranes Moist, Normal Exam - Neck Exam Neck Exam: Normal Inspection - Respiratory Exam Respiratory Exam: Decreased Breath Sounds, Clear to Ausculation Bilateral, NORMAL BREATHING PATTERN - Cardiovascular Exam Cardiovascular Exam: REGULAR RHYTHM - GI/Abdominal Exam GI & Abdominal Exam: Distended (pd fluid), Soft - Extremities Exam Extremities Exam: Normal Inspection Additional comments: dressing in place Assessment and Plan (1) Chronic anemia Status: Acute (2) Foot infection Status: Acute (3) Lower limb ischemia Status: Acute (4) Type 2 diabetes mellitus with diabetic nephropathy Status: Acute (5) Diabetes mellitus Status: Acute (6) ESRD on peritoneal dialysis Status: Acute - Assessment and Plan (Free Text) Assessment: - needs highe insulin dose. high sugars 2/2 dextrose pd solution and steroids. may need to consider icodextran. -check c diff - antibiotics and wound care -maintain pd -add binder
--- NOTE | 2016-10-30 14:57 | CP.PCM.PN ---
Subjective - Date & Time of Evaluation Date of Evaluation: 10/30/16 Time of Evaluation: 14:54 - Subjective Subjective: Surgery: Dr. Clark Patient seen and examined. She continues to complain of pain in the LE bilaterally. She reports quitting smoking last . Per nursing, no acute events overnight. Objective - Vital Signs/Intake and Output Vital Signs (last 24 hours): Temp Pulse Resp BP Pulse Ox 98.0 F 85 20 129/77 96 10/30/16 08:54 10/30/16 08:54 10/30/16 08:54 10/30/16 09:07 10/30/16 08:54 Intake and Output: 10/30/16 10/30/16 06:59 18:59 Intake Total 290 530 Balance 290 530 - Medications Medications: Current Medications Albuterol Sulfate (Albuterol 0.083% Inhal Jojo (2.5 Mg/3 Ml) Ud) 2.5 mg IH RQ4 [facility] Last Admin: 10/30/16 13:40 Dose: Not Given Amlodipine Besylate (Norvasc) 10 mg PO DAILY [facility] Last Admin: 10/30/16 09:06 Dose: 10 mg Aspirin (Ecotrin) 81 mg PO DAILY [facility] Last Admin: 10/30/16 09:06 Dose: 81 mg Calcium Acetate (Phoslo) 667 mg PO TIDCC [facility] Last Admin: 10/30/16 11:58 Dose: 667 mg Carvedilol (Coreg) 12.5 mg PO BID [facility] Last Admin: 10/30/16 09:07 Dose: 12.5 mg Epoetin Alec (Procrit) 10,000 unit SC MWF [facility] Last Admin: 10/29/16 12:49 Dose: 10,000 unit Ferrous Sulfate (Feosol) 325 mg PO DAILY [facility] Last Admin: 10/30/16 09:08 Dose: Not Given Furosemide (Lasix) 40 mg PO DAILY [facility] Last Admin: 10/30/16 09:06 Dose: 40 mg Heparin Sodium (Porcine) (Heparin) 5,000 units SC Q8 [facility] Last Admin: 10/30/16 13:41 Dose: 5,000 units Piperacillin Sod/Tazobactam Sod (Zosyn 2.25 Gm Iv Premix) 2.25 gm in 50 mls @ 100 mls/hr IVPB Q8H [facility] Last Admin: 10/30/16 11:18 Dose: 100 mls/hr Insulin Glargine (Lantus) 20 unit SC HS [facility] Last Admin: 10/29/16 22:15 Dose: 20 units Insulin Human Regular (Novolin R) 0 unit SC ACHS [facility] PRN Reason: Protocol Last Admin: 10/30/16 11:57 Dose: 12 unit Morphine Sulfate (Morphine) 1 mg IVP Q4 PRN PRN Reason: Pain, moderate (4-7) Last Admin: 10/30/16 09:16 Dose: 1 mg Rosuvastatin Calcium (Crestor) 2.5 mg PO HS [facility] Last Admin: 10/29/16 22:16 Dose: 2.5 mg Sevelamer Carbonate (Renvela) 2.4 gm PO TIDCC [facility] - Labs Labs: 10/30/16 07:08 10/30/16 07:08 PT 11.5 SECONDS (9.7-12.2) 10/26/16 18:15 INR 1.0 10/26/16 18:15 APTT 27 SECONDS (21-34) 10/26/16 18:15 - Constitutional Appears: Non-toxic, No Acute Distress - Head Exam Head Exam: ATRAUMATIC, NORMOCEPHALIC - Respiratory Exam Respiratory Exam: NORMAL BREATHING PATTERN. absent: Respiratory Distress - Cardiovascular Exam Cardiovascular Exam: REGULAR RHYTHM. absent: Tachycardia - Extremities Exam Extremities Exam: Calf Tenderness - Neurological Exam Neurological Exam: Alert, Awake - Skin Skin Exam: Dry, Warm Assessment and Plan - Assessment and Plan (Free Text) Assessment: 51 y/o female w/ significant bilateral PAD Plan: -will plan for angio this week in attempt to stent the left lower extremity vessels -plan for bypass surgery for the right lower extremity -will need full medical/cardio clearance -obtain vein mapping of the bilateral LE to assess for possible graft -[facility] and [facility] w[facility]
--- NOTE | 2016-10-30 17:34 | CP.PCM.PN ---
Subjective - Date & Time of Evaluation Date of Evaluation: 10/30/16 Time of Evaluation: 17:34 - Subjective Subjective: issues reviewed with patient re circulation and need for further intervention Objective - Vital Signs/Intake and Output Vital Signs (last 24 hours): Temp Pulse Resp BP Pulse Ox 98.9 F 88 18 132/82 99 10/30/16 15:50 10/30/16 15:50 10/30/16 15:50 10/30/16 15:50 10/30/16 15:50 Intake and Output: 10/30/16 10/30/16 06:59 18:59 Intake Total 290 530 Balance 290 530 - Medications Medications: Current Medications Albuterol Sulfate (Albuterol 0.083% Inhal Jojo (2.5 Mg/3 Ml) Ud) 2.5 mg IH RQ4 [facility] Last Admin: 10/30/16 13:40 Dose: Not Given Amlodipine Besylate (Norvasc) 10 mg PO DAILY [facility] Last Admin: 10/30/16 09:06 Dose: 10 mg Aspirin (Ecotrin) 81 mg PO DAILY [facility] Last Admin: 10/30/16 09:06 Dose: 81 mg Calcium Acetate (Phoslo) 667 mg PO TIDCC [facility] Last Admin: 10/30/16 11:58 Dose: 667 mg Carvedilol (Coreg) 12.5 mg PO BID [facility] Last Admin: 10/30/16 09:07 Dose: 12.5 mg Epoetin Alec (Procrit) 10,000 unit SC MWF [facility] Last Admin: 10/29/16 12:49 Dose: 10,000 unit Ferrous Sulfate (Feosol) 325 mg PO DAILY [facility] Last Admin: 10/30/16 09:08 Dose: Not Given Furosemide (Lasix) 40 mg PO DAILY [facility] Last Admin: 10/30/16 09:06 Dose: 40 mg Heparin Sodium (Porcine) (Heparin) 5,000 units SC Q8 [facility] Last Admin: 10/30/16 13:41 Dose: 5,000 units Piperacillin Sod/Tazobactam Sod (Zosyn 2.25 Gm Iv Premix) 2.25 gm in 50 mls @ 100 mls/hr IVPB Q8H [facility] Last Admin: 10/30/16 11:18 Dose: 100 mls/hr Insulin Glargine (Lantus) 20 unit SC HS [facility] Last Admin: 10/29/16 22:15 Dose: 20 units Insulin Human Regular (Novolin R) 0 unit SC ACHS [facility] PRN Reason: Protocol Last Admin: 10/30/16 11:57 Dose: 12 unit Morphine Sulfate (Morphine) 1 mg IVP Q4 PRN PRN Reason: Pain, moderate (4-7) Last Admin: 10/30/16 09:16 Dose: 1 mg Rosuvastatin Calcium (Crestor) 2.5 mg PO [facility] Last Admin: 10/29/16 22:16 Dose: 2.5 mg Sevelamer Carbonate (Renvela) 2.4 gm PO TIDCC [facility] - Labs Labs: 10/30/16 07:08 10/30/16 07:08 PT 11.5 SECONDS (9.7-12.2) 10/26/16 18:15 INR 1.0 10/26/16 18:15 APTT 27 SECONDS (21-34) 10/26/16 18:15
[2016-10-30] MEDS: (Lantus) Insulin Glargine, Recombinant SC SCH (21:33)
[2016-10-30] MEDS: Rosuvastatin Calcium 2.5 mg Tab PO SCH (21:33)
[2016-10-30] MEDS: Sevelamer Carb 2.4 gm/Packet PO SCH (21:34)
[2016-10-31] MEDS: Albuterol 0.083% Inhal Sol (2.5 mg/3 mL) UD IH SCH ×6 (00:53→20:58)
[2016-10-31] MEDS: Piperacill/Tazo 2.25gm in Dex 2.25 GM/50 ML BAG IVPB SCH ×6 (03:33→19:37)
--- NOTE | 2016-10-31 07:21 | CP.PCM.PN ---
Subjective - Date & Time of Evaluation Date of Evaluation: 10/30/16 Time of Evaluation: 18:00 - Subjective Subjective: Patient without cardiac events Appears to be agreeing for vascular intervention including Vascular bypass if needed Stress test and ECHO as pre op cardiac work up Objective - Vital Signs/Intake and Output Vital Signs (last 24 hours): Temp Pulse Resp BP Pulse Ox 98.4 F 80 20 153/74 H 96 10/31/16 04:25 10/31/16 04:25 10/31/16 04:25 10/31/16 04:25 10/30/16 23:25 - Medications Medications: Current Medications Albuterol Sulfate (Albuterol 0.083% Inhal Jojo (2.5 Mg/3 Ml) Ud) 2.5 mg IH RQ4 [facility] Last Admin: 10/31/16 05:12 Dose: Not Given Amlodipine Besylate (Norvasc) 10 mg PO DAILY [facility] Last Admin: 10/30/16 09:06 Dose: 10 mg Aspirin (Ecotrin) 81 mg PO DAILY [facility] Last Admin: 10/30/16 09:06 Dose: 81 mg Calcium Acetate (Phoslo) 667 mg PO TIDCC [facility] Last Admin: 10/30/16 18:02 Dose: 667 mg Carvedilol (Coreg) 12.5 mg PO BID [facility] Last Admin: 10/30/16 18:02 Dose: 12.5 mg Epoetin Alec (Procrit) 10,000 unit SC MWF [facility] Last Admin: 10/29/16 12:49 Dose: 10,000 unit Ferrous Sulfate (Feosol) 325 mg PO DAILY [facility] Last Admin: 10/30/16 09:08 Dose: Not Given Furosemide (Lasix) 40 mg PO DAILY [facility] Last Admin: 10/30/16 09:06 Dose: 40 mg Heparin Sodium (Porcine) (Heparin) 5,000 units SC Q8 [facility] Last Admin: 10/31/16 06:04 Dose: Not Given Piperacillin Sod/Tazobactam Sod (Zosyn 2.25 Gm Iv Premix) 2.25 gm in 50 mls @ 100 mls/hr IVPB Q8H [facility] Last Admin: 10/31/16 03:33 Dose: Not Given Insulin Glargine (Lantus) 20 unit SC HS [facility] Last Admin: 10/30/16 21:33 Dose: 20 units Insulin Human Regular (Novolin R) 0 unit SC ACHS [facility] PRN Reason: Protocol Last Admin: 10/30/16 21:33 Dose: Not Given Morphine Sulfate (Morphine) 1 mg IVP Q4 PRN PRN Reason: Pain, moderate (4-7) Last Admin: 10/31/16 03:49 Dose: 1 mg Rosuvastatin Calcium (Crestor) 2.5 mg PO HS [facility] Last Admin: 10/30/16 21:33 Dose: 2.5 mg Sevelamer Carbonate (Renvela) 2.4 gm PO TIDCC [facility] Last Admin: 10/30/16 21:34 Dose: Not Given - Labs Labs: 10/30/16 07:08 10/30/16 07:08 PT 11.5 SECONDS (9.7-12.2) 10/26/16 18:15 INR 1.0 10/26/16 18:15 APTT 27 SECONDS (21-34) 10/26/16 18:15
--- NOTE | 2016-10-31 08:19 | CP.PCM.PN ---
Subjective - Date & Time of Evaluation Date of Evaluation: 10/31/16 Time of Evaluation: 08:00 - Subjective Subjective: Patient was seen and evaluated at bedside this morning for follow-up on Right foot ischemic changes. Patient states that she continues to experience ongoing pain to her Right foot. Denies any F/C/N/V/SOB/CP. No other pedal complaints reported at this time. Objective - Vital Signs/Intake and Output Vital Signs (last 24 hours): Temp Pulse Resp BP Pulse Ox 98.4 F 89 20 156/84 H 98 10/31/16 07:10 10/31/16 07:10 10/31/16 07:10 10/31/16 07:10 10/31/16 07:10 Intake and Output: 10/31/16 10/31/16 06:59 18:59 Intake Total 0 Balance 0 - Medications Medications: Current Medications Albuterol Sulfate (Albuterol 0.083% Inhal Jojo (2.5 Mg/3 Ml) Ud) 2.5 mg IH RQ4 [facility] Last Admin: 10/31/16 08:05 Dose: Not Given Amlodipine Besylate (Norvasc) 10 mg PO DAILY [facility] Last Admin: 10/30/16 09:06 Dose: 10 mg Aspirin (Ecotrin) 81 mg PO DAILY [facility] Last Admin: 10/30/16 09:06 Dose: 81 mg Calcium Acetate (Phoslo) 667 mg PO TIDCC [facility] Last Admin: 10/30/16 18:02 Dose: 667 mg Carvedilol (Coreg) 12.5 mg PO BID [facility] Last Admin: 10/30/16 18:02 Dose: 12.5 mg Epoetin Alec (Procrit) 10,000 unit SC MWF [facility] Last Admin: 10/29/16 12:49 Dose: 10,000 unit Ferrous Sulfate (Feosol) 325 mg PO DAILY [facility] Last Admin: 10/30/16 09:08 Dose: Not Given Furosemide (Lasix) 40 mg PO DAILY [facility] Last Admin: 10/30/16 09:06 Dose: 40 mg Heparin Sodium (Porcine) (Heparin) 5,000 units SC Q8 [facility] Last Admin: 10/31/16 06:04 Dose: Not Given Piperacillin Sod/Tazobactam Sod (Zosyn 2.25 Gm Iv Premix) 2.25 gm in 50 mls @ 100 mls/hr IVPB Q8H [facility] Last Admin: 10/31/16 03:33 Dose: Not Given Insulin Glargine (Lantus) 20 unit SC HS [facility] Last Admin: 10/30/16 21:33 Dose: 20 units Insulin Human Regular (Novolin R) 0 unit SC ACHS [facility] PRN Reason: Protocol Last Admin: 10/30/16 21:33 Dose: Not Given Morphine Sulfate (Morphine) 1 mg IVP Q4 PRN PRN Reason: Pain, moderate (4-7) Last Admin: 10/31/16 03:49 Dose: 1 mg Rosuvastatin Calcium (Crestor) 2.5 mg PO HS [facility] Last Admin: 10/30/16 21:33 Dose: 2.5 mg Sevelamer Carbonate (Renvela) 2.4 gm PO TIDCC [facility] Last Admin: 10/30/16 21:34 Dose: Not Given Vancomycin HCl (Vancocin (Oral Or Rectal Use)) 125 mg PO QID [facility] - Labs Labs: 10/30/16 07:08 10/30/16 07:08 PT 11.5 SECONDS (9.7-12.2) 10/26/16 18:15 INR 1.0 10/26/16 18:15 APTT 27 SECONDS (21-34) 10/26/16 18:15 - Constitutional Appears: Non-toxic, No Acute Distress - Neurological Exam Neurological Exam: Alert, Awake, Oriented x3 - Psychiatric Exam Psychiatric exam: Normal Affect, Normal Mood - Additional Findings Additional findings: Bilateral foot examination: Vascular: DP pulse faintly palpable 1/4 bilaterally; PT pulse non-palpable, aucultated via doppler. Capillary fill time prolonged in all digits >4 secs to all digits Right hallux, 2nd, & 4th digits appear pale, blanched, and cool to touch. . Neuro: light touch sensation and motor function grossly intact Derm: Slight dark dusky discoloration noted to Right hallux consistent with ischemic changes to the digit. No open wound noted; Right hallux toenail is absent; no edema, no erythema, no open lesions; no clinical signs of infection noted. Right distal 5th digit showing darkening ischemic changes. Plantar mid foot area also appear slightly dusky as well. No open wound noted. Ortho: significant pain elicited upon palpation of the Right hallux Assessment and Plan - Assessment and Plan (Free Text) Assessment: 51 y/o female with ischemic changes noted to the Right forefoot secondary to PVD. Plan: Patient was seen and evaluated at bedside Discussed patient in detail with attending, Dr. Aldrich Labs and vitals reviewed: WBC trending up (22.4 as of 10/30); afebrile Right forefoot ischemia has progressed from ischemic hallux to ischemic changes of the 3rd and 5th digits as well CT angio report reviewed: bilateral diffuse arterial atherosclerotic disease noted; occlusion of bilateral SFA; heavy calcification of bilateral anterior and posterior tibial aa. Arterial duplex report pending- will follow-up on results As per Dr. Clark, patient to undergo RLE bypass surgery; patient is currently in the process of undergoing cardiac clearance with Echo and stress test Podiatry to follow while patient remains in house
[2016-10-31] MEDS: (Novolin R) Insulin Human Regular 100 units/ml vial SC SCH ×5 (08:22→22:09)
[2016-10-31] MEDS: Sevelamer Carb 2.4 gm/Packet PO SCH (08:22)
[2016-10-31] MEDS ORDERED: EPOETIN ALFA 10,000 UNIT/ML ML SC SCH ×2 (09:00)
[2016-10-31 10:15] LABS: BF GROSS APPEARANCE CLEAR (CLEAR); BODY FLUID TYPE PERITONEAL
[2016-10-31] MEDS: EPOETIN ALFA 10,000 UNIT/ML ML SC SCH (11:35)
[2016-10-31] MEDS: Vancomycin 125 MG/5 ML SOLN (ORAL/RECTAL) PO SCH ×6 (11:36→22:11)
--- NOTE | 2016-10-31 13:03 | CP.PCM.PN ---
Subjective - Date & Time of Evaluation Date of Evaluation: 10/31/16 Time of Evaluation: 12:58 - Subjective Subjective: Reviewed case - right toe #1 area with increasing ischemic changes- more purplish areas. Due to steroids hyperglycemia was uncontrolled- improving now; last BS was 71 CTA results noted- severe PAD. Will need right LE bypass surgery, await clearance. Might need left LE arterial stent as well. Has had increased diarrhea, c.diff pending- started on empiric oral vanco. Na level dropped - likely from uncontrolled hyperglycemia PD going well- fluid clear. HTN controlled No n,v, SOB, CPs, f,chills Objective - Vital Signs/Intake and Output Vital Signs (last 24 hours): Temp Pulse Resp BP Pulse Ox 98.4 F 89 20 156/84 H 98 10/31/16 07:10 10/31/16 07:10 10/31/16 07:10 10/31/16 07:10 10/31/16 07:10 Intake and Output: 10/31/16 10/31/16 06:59 18:59 Intake Total 0 Balance 0 - Medications Medications: Current Medications Albuterol Sulfate (Albuterol 0.083% Inhal Jojo (2.5 Mg/3 Ml) Ud) 2.5 mg IH RQ4 [facility] Last Admin: 10/31/16 08:05 Dose: Not Given Amlodipine Besylate (Norvasc) 10 mg PO DAILY [facility] Last Admin: 10/30/16 09:06 Dose: 10 mg Aspirin (Ecotrin) 81 mg PO DAILY [facility] Last Admin: 10/30/16 09:06 Dose: 81 mg Calcium Acetate (Phoslo) 667 mg PO TIDCC [facility] Last Admin: 10/31/16 08:22 Dose: Not Given Carvedilol (Coreg) 12.5 mg PO BID [facility] Last Admin: 10/31/16 11:35 Dose: Not Given Epoetin Alec (Procrit) 10,000 unit SC MWF [facility] Last Admin: 10/31/16 11:35 Dose: Not Given Ferrous Sulfate (Feosol) 325 mg PO DAILY [facility] Last Admin: 10/30/16 09:08 Dose: Not Given Furosemide (Lasix) 40 mg PO DAILY [facility] Last Admin: 10/30/16 09:06 Dose: 40 mg Heparin Sodium (Porcine) (Heparin) 5,000 units SC Q8 [facility] Last Admin: 10/31/16 06:04 Dose: Not Given Piperacillin Sod/Tazobactam Sod (Zosyn 2.25 Gm Iv Premix) 2.25 gm in 50 mls @ 100 mls/hr IVPB Q8H [facility] Last Admin: 10/31/16 03:33 Dose: Not Given Insulin Glargine (Lantus) 20 unit SC [facility] Last Admin: 10/30/16 21:33 Dose: 20 units Insulin Human Regular (Novolin R) 0 unit SC ACHS [facility] PRN Reason: Protocol Last Admin: 10/31/16 12:55 Dose: Not Given Morphine Sulfate (Morphine) 1 mg IVP Q4 PRN PRN Reason: Pain, moderate (4-7) Last Admin: 10/31/16 03:49 Dose: 1 mg Rosuvastatin Calcium (Crestor) 2.5 mg PO HS [facility] Last Admin: 10/30/16 21:33 Dose: 2.5 mg Sevelamer Carbonate (Renvela) 2.4 gm PO TIDCC [facility] Last Admin: 10/31/16 08:22 Dose: Not Given Vancomycin HCl (Vancocin (Oral Or Rectal Use)) 125 mg PO QID [facility] Last Admin: 10/31/16 11:36 Dose: Not Given - Labs Labs: 10/30/16 07:08 10/30/16 07:08 PT 11.5 SECONDS (9.7-12.2) 10/26/16 18:15 INR 1.0 10/26/16 18:15 APTT 27 SECONDS (21-34) 10/26/16 18:15 - Constitutional Appears: In Acute Distress, Agitated, Chronically Ill - Head Exam Head Exam: ATRAUMATIC, NORMAL INSPECTION - Eye Exam Eye Exam: EOMI, Normal appearance - Neck Exam Neck Exam: Normal Inspection. absent: Tenderness - Respiratory Exam Respiratory Exam: Clear to Ausculation Bilateral, NORMAL BREATHING PATTERN - Cardiovascular Exam Cardiovascular Exam: REGULAR RHYTHM, +S1 - GI/Abdominal Exam GI & Abdominal Exam: Soft. absent: Tenderness - Extremities Exam Extremities Exam: Normal Inspection, Tenderness. absent: Pedal Edema - Neurological Exam Neurological Exam: Awake, CN II-XII Intact - Skin Skin Exam: Cyanosis, Dry, Pallor, Warm Assessment and Plan (1) Type 2 diabetes mellitus with diabetic nephropathy Status: Acute (2) Chronic anemia Status: Acute (3) Foot infection Status: Acute (4) Lower limb ischemia Status: Acute (5) ESRD on peritoneal dialysis Status: Acute (6) Hypertension Status: Acute - Assessment and Plan (Free Text) Plan: Bolus NS- repeat Na level after bolus Check iron stores Stop lasix BSs better controlled Check c.diff- oral vanco added possible LE bypass right side possible stent left LE Same PD recommend ID consult- regulate antibiotics Add phos binders as phos elevated, calcium decreased
[2016-10-31] MEDS ORDERED: Sodium Chloride 0.9% 250 ML IV ONE (13:08)
--- NOTE | 2016-10-31 14:15 | VASCLAB ---
PROCEDURE: HISTORY: Leg pain COMPARISON: None available. TECHNIQUE: Grayscale and duplex Doppler evaluation of the bilateral common femoral, femoral, profunda femoral, popliteal, posterior tibial, anterior tibial and dorsalis pedis arteries was performed. Report prepared by TARA Mariano, RVT FINDINGS: RIGHT LOWER EXTREMITY: * Common Femoral Artery: Peak Systolic Velocity - 194: Doppler Waveform: Biphasic: Plaque description - Calcific * Profunda Femoral Artery: Peak Systolic Velocity - 182: Doppler Waveform: Biphasic.: Plaque description - Calcific * Femoral Artery o Proximal Segment: Peak Systolic Velocity - 0: Doppler Waveform: Absent: Plaque description - Calcific o Middle Segment: Peak Systolic Velocity - 0: Doppler Waveform: Absent: Plaque description - Calcific o Distal Segment: Peak Systolic Velocity - 58: Doppler Waveform: Biphasic: Plaque description - Calcific * Popliteal Artery o Proximal Segment: Peak Systolic Velocity - 75: Doppler Waveform: Biphasic: Plaque description - Calcific o Middle Segment: Peak Systolic Velocity - 49: Doppler Waveform: Biphasic: Plaque description - Calcific o Distal Segment: Peak Systolic Velocity - 53: Doppler Waveform: Biphasic: Plaque description - Calcific * Posterior Tibial Artery: Peak Systolic Velocity - 0: Doppler Waveform: Absent: Plaque description - Calcific * Anterior Tibial Artery: Peak Systolic Velocity - 69: Doppler Waveform: Biphasic: Plaque description - Calcific * Dorsalis Pedis Artery: Peak Systolic Velocity - 23: Doppler Waveform: Biphasic: Plaque description - Calcific LEFT LOWER EXTREMITY: * Common Femoral Artery: Peak Systolic Velocity - 202: Doppler Waveform: Biphasic: Plaque description - Calcific * Profunda Femoral Artery: Peak Systolic Velocity - 117: Doppler Waveform: Biphasic: Plaque description - Calcific * Femoral Artery o Proximal Segment: Peak Systolic Velocity - 0: Doppler Waveform: Absent: Plaque description - Calcific o Middle Segment: Peak Systolic Velocity - 48: Doppler Waveform: Monophasic: Plaque description - Calcific o Distal Segment: Peak Systolic Velocity - 19: Doppler Waveform: Monophasic: Plaque description - Calcific * Popliteal Artery o Proximal Segment: Peak Systolic Velocity - 52: Doppler Waveform: Biphasic: Plaque description - Calcific o Middle Segment: Peak Systolic Velocity - 71: Doppler Waveform: Biphasic: Plaque description - Calcific o Distal Segment: Peak Systolic Velocity - 56: Doppler Waveform: Biphasic: Plaque description - Calcific * Posterior Tibial Artery: Peak Systolic Velocity - 0: Doppler Waveform: Absent: Plaque description - Calcific * Anterior Tibial Artery: Peak Systolic Velocity - 14: Doppler Waveform: Biphasic: Plaque description - Calcific * Dorsalis Pedis Artery: Peak Systolic Velocity - 41: Doppler Waveform: Monophasic: Plaque description - Calcific OTHER FINDINGS: Dr. Clark notified about the findings. Technically difficult study due to severe arterial wall calcification. IMPRESSION: RIGHT: Possible occlusion of the right proximal to mid superficial femoral and distal posterior tibial arteries. 30-49% stenosis of the right common femoral and proximal profunda femoral arteries. LEFT: Possible occlusion of the left proximal superficial femoral and posterior tibial arteries. 30-49% stenosis of the left common femoral artery. Angiogram with intervention recommended.
--- NOTE | 2016-10-31 14:21 | CP.PCM.PN ---
Subjective - Date & Time of Evaluation Date of Evaluation: 10/31/16 Time of Evaluation: 14:20 - Subjective Subjective: reviewed with patient re options and plans Objective - Vital Signs/Intake and Output Vital Signs (last 24 hours): Temp Pulse Resp BP Pulse Ox 98.4 F 89 20 156/84 H 98 10/31/16 07:10 10/31/16 07:10 10/31/16 07:10 10/31/16 07:10 10/31/16 07:10 Intake and Output: 10/31/16 10/31/16 06:59 18:59 Intake Total 0 Balance 0 - Medications Medications: Current Medications Albuterol Sulfate (Albuterol 0.083% Inhal Jojo (2.5 Mg/3 Ml) Ud) 2.5 mg IH RQ4 [facility] Last Admin: 10/31/16 13:40 Dose: Not Given Amlodipine Besylate (Norvasc) 10 mg PO DAILY [facility] Last Admin: 10/31/16 13:17 Dose: 10 mg Aspirin (Ecotrin) 81 mg PO DAILY [facility] Last Admin: 10/31/16 13:16 Dose: 81 mg Calcium Acetate (Phoslo) 2,668 mg PO TIDCC [facility] Carvedilol (Coreg) 12.5 mg PO BID [facility] Last Admin: 10/31/16 11:35 Dose: Not Given Epoetin Alec (Procrit) 10,000 unit SC MWF [facility] Last Admin: 10/31/16 11:35 Dose: Not Given Ferrous Sulfate (Feosol) 325 mg PO DAILY [facility] Last Admin: 10/31/16 13:17 Dose: 325 mg Heparin Sodium (Porcine) (Heparin) 5,000 units SC Q8 [facility] Last Admin: 10/31/16 13:17 Dose: 5,000 units Piperacillin Sod/Tazobactam Sod (Zosyn 2.25 Gm Iv Premix) 2.25 gm in 50 mls @ 100 mls/hr IVPB Q8H [facility] Last Admin: 10/31/16 13:18 Dose: 100 mls/hr Sodium Chloride (Sodium Chloride 0.9%) 250 mls @ 125 mls/hr IV .Q2H ONE Stop: 10/31/16 15:07 Insulin Glargine (Lantus) 20 unit SC HS [facility] Last Admin: 10/30/16 21:33 Dose: 20 units Insulin Human Regular (Novolin R) 0 unit SC ACHS [facility] PRN Reason: Protocol Last Admin: 10/31/16 12:55 Dose: Not Given Morphine Sulfate (Morphine) 1 mg IVP Q4 PRN PRN Reason: Pain, moderate (4-7) Last Admin: 10/31/16 13:36 Dose: 1 mg Rosuvastatin Calcium (Crestor) 2.5 mg PO HS [facility] Last Admin: 10/30/16 21:33 Dose: 2.5 mg Vancomycin HCl (Vancocin (Oral Or Rectal Use)) 125 mg PO QID [facility] Last Admin: 10/31/16 13:17 Dose: 125 mg - Labs Labs: 10/30/16 07:08 10/30/16 07:08 PT 11.5 SECONDS (9.7-12.2) 10/26/16 18:15 INR 1.0 10/26/16 18:15 APTT 27 SECONDS (21-34) 10/26/16 18:15
--- NOTE | 2016-10-31 15:00 | CP.PCM.PN ---
<ObieOlegarioAngelique - Last Filed: 10/31/16 15:38> Subjective - Date & Time of Evaluation Date of Evaluation: 10/31/16 Time of Evaluation: 14:58 - Subjective Subjective: PGY-[address] Parra Pt complained of R leg pain, but tried to avoid pain med because it makes her nauseous and has low appetite. Otherwise no other acute complain. Last smoke last Objective - Vital Signs/Intake and Output Vital Signs (last 24 hours): Temp Pulse Resp BP Pulse Ox 98.4 F 89 20 156/84 H 98 10/31/16 07:10 10/31/16 07:10 10/31/16 07:10 10/31/16 07:10 10/31/16 07:10 Intake and Output: 10/31/16 10/31/16 06:59 18:59 Intake Total 730 Balance 730 - Medications Medications: Current Medications Albuterol Sulfate (Albuterol 0.083% Inhal Jojo (2.5 Mg/3 Ml) Ud) 2.5 mg IH RQ4 [facility] Last Admin: 10/31/16 13:40 Dose: Not Given Amlodipine Besylate (Norvasc) 10 mg PO DAILY [facility] Last Admin: 10/31/16 14:37 Dose: Not Given Aspirin (Ecotrin) 81 mg PO DAILY [facility] Last Admin: 10/31/16 14:37 Dose: Not Given Calcium Acetate (Phoslo) 2,668 mg PO TIDCC [facility] Carvedilol (Coreg) 12.5 mg PO BID [facility] Last Admin: 10/31/16 11:35 Dose: Not Given Epoetin Alec (Procrit) 10,000 unit SC MWF [facility] Last Admin: 10/31/16 11:35 Dose: Not Given Ferrous Sulfate (Feosol) 325 mg PO DAILY [facility] Last Admin: 10/31/16 14:37 Dose: Not Given Heparin Sodium (Porcine) (Heparin) 5,000 units SC Q8 [facility] Last Admin: 10/31/16 14:37 Dose: Not Given Piperacillin Sod/Tazobactam Sod (Zosyn 2.25 Gm Iv Premix) 2.25 gm in 50 mls @ 100 mls/hr IVPB Q8H [facility] Last Admin: 10/31/16 14:38 Dose: Not Given Sodium Chloride (Sodium Chloride 0.9%) 250 mls @ 125 mls/hr IV .Q2H ONE Stop: 10/31/16 15:07 Last Admin: 10/31/16 14:32 Dose: 125 mls/hr Insulin Glargine (Lantus) 20 unit SC [facility] Last Admin: 10/30/16 21:33 Dose: 20 units Insulin Human Regular (Novolin R) 0 unit SC ACHS [facility] PRN Reason: Protocol Last Admin: 10/31/16 12:30 Dose: Not Given Morphine Sulfate (Morphine) 1 mg IVP Q4 PRN PRN Reason: Pain, moderate (4-7) Last Admin: 10/31/16 03:49 Dose: 1 mg Rosuvastatin Calcium (Crestor) 2.5 mg PO HS [facility] Last Admin: 10/30/16 21:33 Dose: 2.5 mg Vancomycin HCl (Vancocin (Oral Or Rectal Use)) 125 mg PO QID [facility] Last Admin: 10/31/16 14:38 Dose: Not Given - Labs Labs: 10/30/16 07:08 10/30/16 07:08 PT 11.5 SECONDS (9.7-12.2) 10/26/16 18:15 INR 1.0 10/26/16 18:15 APTT 27 SECONDS (21-34) 10/26/16 18:15 - Constitutional Appears: Older Than Stated Age, Chronically Ill - Head Exam Head Exam: ATRAUMATIC, NORMOCEPHALIC - Eye Exam Eye Exam: EOMI, Normal appearance Pupil Exam: NORMAL ACCOMODATION - ENT Exam ENT Exam: Mucous Membranes Moist - Respiratory Exam Respiratory Exam: Clear to Ausculation Bilateral. absent: Rales, Rhonchi, Wheezes - Cardiovascular Exam Cardiovascular Exam: REGULAR RHYTHM, +S1, +S2 - GI/Abdominal Exam GI & Abdominal Exam: Soft, Normal Bowel Sounds - Extremities Exam Extremities Exam: absent: Calf Tenderness, Normal Capillary Refill Additional comments: R toes dusky color - Neurological Exam Neurological Exam: Alert, Awake - Psychiatric Exam Psychiatric exam: Normal Affect, Normal Mood - Skin Skin Exam: Dry, Pallor, Warm Assessment and Plan - Assessment and Plan (Free Text) Plan: 51F, past smoker who quitted smoking last week, with Hx of PAD, HTN/HLD, DM2, ESRD on peritoneal HD, has ischemic Right foot with increasing pain. cardiology was consulted for cardiac risk assessment for a 2 step surgical procedures (1) angio to stent LLE; (2) RLE bypass surgery. Echo and stress test conducted. 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 - pending PD fluid analysis vs cellulitis/osteomyelitis vs c.diff - vanco and zosyn - increased diarrhea, c.diff pending R leg ischemia - progressing Foot infection r/o osteomyelitis - from hallux to 3rd and 5th digit PAD - CTA abdomin and pelvis: bilateral diffuse arterial atherosclerotic disease; occlusion of bilateral SFA; heavy calcification of bilateral anterior and posterior tibial aa. - high likelyhood of CAD vein mapping of the bilateral LE to assess for possible graft - Due to type 4 aortic arch, bilateral lower extremity run offs not performed due to technical difficulty and pt's CKD. IDDM2 Lable sugar - due to infection and decreased kidney metabolism of insulun ESRD on PD Macrocytic anemia, chronic - pending B12, folate - defer to primary team for managing Allergy: shrimp DVT prophylaxis - heparin 5000 q8 will S/r/d/w Dr. Parra <Eric Parra - Last Filed: 10/31/16 21:08> Objective - Vital Signs/Intake and Output Vital Signs (last 24 hours): Temp Pulse Resp BP Pulse Ox 97.7 F 89 20 165/76 H 96 10/31/16 15:46 10/31/16 15:46 10/31/16 15:46 10/31/16 18:26 10/31/16 15:46 Intake and Output: 10/31/16 11/01/16 18:59 06:59 Intake Total 730 Balance 730 - Medications Medications: Current Medications Albuterol Sulfate (Albuterol 0.083% Inhal Jojo (2.5 Mg/3 Ml) Ud) 2.5 mg IH RQ4 [facility] Last Admin: 10/31/16 20:58 Dose: Not Given Amlodipine Besylate (Norvasc) 10 mg PO DAILY [facility] Last Admin: 10/31/16 12:30 Dose: 10 mg Aspirin (Ecotrin) 81 mg PO DAILY [facility] Last Admin: 10/31/16 12:30 Dose: 81 mg Calcium Acetate (Phoslo) 2,668 mg PO TIDCC [facility] Last Admin: 10/31/16 18:23 Dose: 2,668 mg Carvedilol (Coreg) 12.5 mg PO BID [facility] Last Admin: 10/31/16 18:26 Dose: 12.5 mg Epoetin Alec (Procrit) 10,000 unit SC [facility] Last Admin: 10/31/16 11:35 Dose: Not Given Ferrous Sulfate (Feosol) 325 mg PO DAILY [facility] Last Admin: 10/31/16 12:30 Dose: 325 mg Heparin Sodium (Porcine) (Heparin) 5,000 units SC Q8 [facility] Last Admin: 10/31/16 14:37 Dose: Not Given Piperacillin Sod/Tazobactam Sod (Zosyn 2.25 Gm Iv Premix) 2.25 gm in 50 mls @ 100 mls/hr IVPB Q8H [facility] Last Admin: 10/31/16 19:37 Dose: 100 mls/hr Vancomycin HCl 1 gm/ Sodium (Chloride) 250 mls @ 166.7 mls/[facility] Insulin Glargine (Lantus) 20 unit SC [facility] Last Admin: 10/30/16 21:33 Dose: 20 units Insulin Human Regular (Novolin R) 0 unit SC [facility] PRN Reason: Protocol Last Admin: 10/31/16 16:30 Dose: Not Given Morphine Sulfate (Morphine) 1 mg IVP Q4 PRN PRN Reason: Pain, moderate (4-7) Last Admin: 10/31/16 15:22 Dose: 1 mg Rosuvastatin Calcium (Crestor) 2.5 mg PO HS [facility] Last Admin: 10/30/16 21:33 Dose: 2.5 mg Vancomycin HCl (Vancocin (Oral Or Rectal Use)) 125 mg PO QID [facility] Last Admin: 10/31/16 18:24 Dose: 125 mg - Labs Labs: 10/30/16 07:08 10/30/16 07:08 PT 11.5 SECONDS (9.7-12.2) 10/26/16 18:15 INR 1.0 10/26/16 18:15 APTT 27 SECONDS (21-34) 10/26/16 18:15 Assessment and Plan - Assessment and Plan (Free Text) Assessment: Patient seen and evaluated with the medical secretary Stress test: No stress induced ischemia ECHO: Normal EF, Severe pulmonary HTN Recommend Pulmonary evaluation prior to Vascular surgery and Intervention
--- NOTE | 2016-10-31 17:04 | CP.PCM.CON ---
History of Present Illness - History of Present Illness History of Present Illness: 51-year-old female with history of hypertension, end-stage renal disease on peritoneal dialysis, hypercholesterolemia came to the emergency room with worsening right leg pain, and the pain over right foot. Patient went to see the cooking teacher to, will send the patient to the emergency referred marisol rgaves of impending gangrene great toe vascular eval in progress Past medical history: Anemia, chronic bronchitis, diabetes type 2, hypertension, hypercholesterolemia , history of pneumonia in the past, receiving peritoneal dialysis Surgical history: , currently receiving peritoneal dialysis allergy: No known drug allergy Personal history patient is a lifelong nonsmoker, nonalcoholic Review of Systems - Constitutional Constitutional: As Per HPI - EENT Eyes: absent: As Per HPI, Blind Spots, Blurred Vision, Change in Vision, Decreased Night Vision, Diplopia, Discharge, Dry Eye, Exophthalmos, Floaters, Irritation, Itchy Eyes, Loss of Peripheral Vision, Pain, Photophobia, Requires Corrective Lenses, Sees Flashes, Spots in Vision, Tunnel Vision, Other Visual Disturbances, Loss of Vision, Other Ears: absent: As Per HPI, Decreased Hearing, Ear Discharge, Ear Pain, Tinnitus, Abnormal Hearing, Disequilibrium, Dizziness, Other Nose/Mouth/Throat: absent: As Per HPI, Epistaxis, Nasal Congestion, Nasal Discharge, Nasal Obstruction, Nasal Trauma, Nose Pain, Post Nasal Drip, Sinus Pain, Sinus Pressure, Bleeding Gums, Change in Voice, Dental Pain, Dry Mouth, Dysphagia, Halitosis, Hoarsness, Lip Swelling, Mouth Lesions, Mouth Pain, Odynophagia, Sore Throat, Throat Swelling, Tongue Swelling, Facial Pain, Neck Pain, Neck Mass, Other - Breasts Breasts: absent: As Per HPI, Change in Shape, Mass, Pain, Nipple Discharge, Nipple Inversion, Skin Changes, Swelling, Other - Cardiovascular Cardiovascular: absent: As Per HPI, Acrocyanosis, Chest Pain, Chest Pain at Rest , Chest Pain with Activity, Claudication, Diaphoresis, Dyspnea, Dyspnea on Exertion, Edema, Irregular Heart Rhythm, Pain Radiating to Arm/Neck/Jaw, Leg Edema, Leg Ulcers, Lightheadedness, Orthopnea, Palpitations, Paroxysmal Nocturnal Dyspnea, Pedal Edema, Radiating Pain, Rapid Heart Rate, Slow Heart Rate, Syncope, Other - Respiratory Respiratory: absent: As Per HPI, Cough, Dyspnea, Hemoptysis, Dyspnea on Exertion , Wheezing, Snoring, Stridor, Pain on Inspiration, Chest Congestion, Excessive Mucous Production, Change in Mucous Color, Pain with Coughing, Other - Gastrointestinal Gastrointestinal: absent: As Per HPI, Abdominal Pain, Belching, Bloating, Change in Bowel Habits, Change in Stool Character, Coffee Ground Emesis, Constipation, Cramping, Diarrhea, Dyspepsia, Dysphagia, Early Satiety, Excessive Flatus, Fecal Incontinence, Heartburn, Hematemesis, Hematochezia, Loose Stools, Melena, Nausea, Odynophagia, Temesmus, Vomiting, Other - Genitourinary Genitourinary: absent: As Per HPI, Change in Urinary Stream, Difficulty Urinating, Dysuria, Flank Pain, Hematuria, Pyuria, Nocturia, Urinary Incontinence, Urinary Frequency, Urinary Hesitance, Urinary Urgency, Voiding Freq/Small Amts, Freq UTI, Hx Renal/Bladder Calculi, Hx /Renal Surgery, Bladder Distension, Other - Reproductive: Female Reproductive:Female: absent: As Per HPI, Amenorrhea, Amenorrhea/ Control, Currently Menstual, Cycle <21 Days, Cycle >35 Days, Cycle Variable, Menses 1-7 Days, Menses >/= 8 Days, Menses Variable, Cycle > 4 Weeks Between, No Menses for 6 Months, Heavy Menses, Light Menses, Normal Menses, Spotting Between Cycles , S/P Hysterectomy, Menopausal, Post Menopausal, Premenarche, Abnormal Vaginal Bleeding, Dysmenorrhea, Dyspareunia, Genital Lesions, Genital Pruritis, Pelvic Pain, Prolapse Symptoms, Sexual Dysfunction, Vaginal Discharge, Vaginal Dryness , Vaginal Odor, Vaginal Pruritis, Other - Menstruation Menstruation: absent: As Per HPI, Amenorrhea, Amenorrhea/ Control, Currently Menstual, Cycle <21 Days, Cycle >35 Days, Cycle Variable, Menses 1-7 Days, Menses >/= 8 Days, Menses Variable, Cycle > 4 Weeks Between, No Menses for 6 Months, Heavy Menses, Light Menses, Normal Menses, Spotting Between Cycles , S/P Hysterectomy, Menopausal, Post Menopausal, Premenarche, Abnormal Vaginal Bleeding, Dysmenorrhea, Other - Musculoskeletal Musculoskeletal: As Per HPI - Integumentary Integumentary: As Per HPI - Neurological Neurological: absent: As Per HPI, Abnormal Gait, Abnormal Hearing, Abnormal Movements, Abnormal Speech, Behavioral Changes, Burning Sensations, Confusion, Convulsions, Disequilibrium, Dizziness, Numbness, Focal Weakness, Frequent Falls , Headaches, Lack of Coordination, Loss of Vision, Memory Loss, Paresthesias, Radicular Pain, Restless Legs, Sensory Deficit, Syncope, Tingling, Tremor, Vertigo, Weakness, Other Visual Disturbances, Other - Psychiatric Psychiatric: absent: As Per HPI, Abnormal Sleep Pattern, Anhedonia, Anxiety, Auditory Hallucinations, Behavioral Changes, Change in Appetite, Change in Libido, Confusion, Depression, Difficulty Concentrating, Hallucinations, Homicidal Ideation, Hopelessness, Irritability, Memory Loss, Mood Swings, Panic Attacks, Paranoia, Suicidal Ideation, Visual Hallucinations, Tactile Hallucinations, Other - Endocrine Endocrine: absent: As Per HPI, Change in Body Appearance, Change in Libido, Cold Intolorance, Deepening of Voice, Excessive Sweating, Fatigue, Flushing, Heat Intolorance, Increase in Ring/Shoe/Hat Size, Palpitations, Polydipsia, Polyphagia, Polyuria, Other - Hematologic/Lymphatic Hematologic: absent: As Per HPI, Easy Bleeding, Easy Bruising, Lymphadenopathy, Other Past Patient History - Infectious Disease Hx of Infectious Diseases: None - Past Medical History & Family History Past Medical History?: Yes - Past Social History Smoking Status: Never Smoked - CARDIAC Hx Hypercholesterolemia: Yes Hx Hypertension: Yes - PULMONARY Hx Bronchitis: Yes Hx Pneumonia: Yes - RENAL Hx Chronic Kidney Disease: Yes - ENDOCRINE/METABOLIC Hx Endocrine Disorders: Yes Hx Diabetes Mellitus Type 2: Yes - HEMATOLOGICAL/ONCOLOGICAL Hx Anemia: Yes - INTEGUMENTARY Hx Dermatological Problems: Yes Hx Eczema: Yes - MUSCULOSKELETAL/RHEUMATOLOGICAL Hx Falls: Yes - GENITOURINARY/GYNECOLOGICAL Hx Genitourinary Disorders: Yes (DX: RENAL FAILURE) - PSYCHIATRIC Hx Substance Use: No - SURGICAL HISTORY Hx Surgeries: Yes Hx Section: Yes Hx Eye Surgery: Yes (INSERT "GAS" BUBBLE BOTH EYES) Hx Tubal Ligation: Yes Hx Vascular Access Device: Yes (R SC HD cath) Other/Comment: I&D GROIN; 12/30/14 LAPAROSCOPIC INSERTION PERITONEAL DIALYSIS CATHETER. 01/14/15 REVISION DONE OF PERITIONEAL DIALYSIS CATH. - ANESTHESIA Hx Anesthesia: Yes Hx Anesthesia Reactions: No Hx Malignant Hyperthermia: No Meds Allergies/Adverse Reactions: Allergies Allergy/AdvReac Type Severity Reaction Status Date / Time shrimp Allergy Verified 10/26/16 09:55 - Medications Medications: Current Medications Albuterol Sulfate (Albuterol 0.083% Inhal Jojo (2.5 Mg/3 Ml) Ud) 2.5 mg IH RQ4 [facility] Last Admin: 10/31/16 13:40 Dose: Not Given Amlodipine Besylate (Norvasc) 10 mg PO DAILY [facility] Last Admin: 10/31/16 12:30 Dose: 10 mg Aspirin (Ecotrin) 81 mg PO DAILY [facility] Last Admin: 10/31/16 12:30 Dose: 81 mg Calcium Acetate (Phoslo) 2,668 mg PO TIDCC [facility] Carvedilol (Coreg) 12.5 mg PO BID [facility] Last Admin: 10/31/16 11:35 Dose: Not Given Epoetin Alec (Procrit) 10,000 unit SC MWF [facility] Last Admin: 10/31/16 11:35 Dose: Not Given Ferrous Sulfate (Feosol) 325 mg PO DAILY [facility] Last Admin: 10/31/16 12:30 Dose: 325 mg Heparin Sodium (Porcine) (Heparin) 5,000 units SC Q8 [facility] Last Admin: 10/31/16 14:37 Dose: Not Given Piperacillin Sod/Tazobactam Sod (Zosyn 2.25 Gm Iv Premix) 2.25 gm in 50 mls @ 100 mls/hr IVPB Q8H [facility] Last Admin: 10/31/16 15:42 Dose: 100 mls/hr Insulin Glargine (Lantus) 20 unit SC [facility] Last Admin: 10/30/16 21:33 Dose: 20 units Insulin Human Regular (Novolin R) 0 unit SC ACHS [facility] PRN Reason: Protocol Last Admin: 10/31/16 12:30 Dose: Not Given Morphine Sulfate (Morphine) 1 mg IVP Q4 PRN PRN Reason: Pain, moderate (4-7) Last Admin: 10/31/16 15:22 Dose: 1 mg Rosuvastatin Calcium (Crestor) 2.5 mg PO HS [facility] Last Admin: 10/30/16 21:33 Dose: 2.5 mg Vancomycin HCl (Vancocin (Oral Or Rectal Use)) 125 mg PO QID [facility] Last Admin: 10/31/16 12:30 Dose: 125 mg Physical Exam - Constitutional Appears: Non-toxic, Chronically Ill - Head Exam Head Exam: NORMOCEPHALIC - Eye Exam Eye Exam: PERRL. absent: Scleral icterus - ENT Exam ENT Exam: Mucous Membranes Dry, Normal External Ear Exam - Neck Exam Neck exam: Negative for: Lymphadenopathy - Respiratory Exam Respiratory Exam: Decreased Breath Sounds, Clear to Auscultation Bilateral - Cardiovascular Exam Cardiovascular Exam: REGULAR RHYTHM, +S1, +S2 - GI/Abdominal Exam GI & Abdominal Exam: Diminished Bowel Sounds, Soft. absent: Tenderness - Rectal Exam Rectal Exam: Deferred - Exam Exam: NORMAL INSPECTION - Extremities Exam Extremities exam: Negative for: calf tenderness, pedal edema, tenderness - Back Exam Back exam: absent: CVA tenderness (L), CVA tenderness (R), paraspinal tenderness - Neurological Exam Neurological exam: Alert, CN II-XII Intact, Oriented x3, Reflexes Normal - Psychiatric Exam Psychiatric exam: Normal Mood - Skin Skin Exam: Mottled, Pallor Additional comments: gangrene to great toe Results - Vital Signs Recent Vital Signs: Last Vital Signs Temp 97.7 F 10/31/16 15:46 Pulse 89 10/31/16 15:46 Resp 20 10/31/16 15:46 BP 165/76 H 10/31/16 15:46 Pulse Ox 96 10/31/16 15:46 - Labs Result Diagrams: 10/30/16 07:08 10/30/16 07:08 Labs: Laboratory Results - last 24 hr 10/30/16 10/30/16 10/31/16 14:34 21:06 02:01 POC Glucose (mg/dL) 247 H 387 H Fluid Source Fluid Appearance Fluid WBC Fluid RBC Fluid Neutrophils Fluid Lymphocytes Fld Monocyte/Macrophag Fluid Comment C. difficile Ag & Toxin Negative 10/31/16 10/31/16 10/31/16 06:44 10:15 12:42 POC Glucose (mg/dL) 320 H 71 Fluid Source Peritoneal Fluid Appearance Clear Fluid WBC 30.0 Fluid RBC 101.0 H Fluid Neutrophils 85.0 H Fluid Lymphocytes 7.0 H Fld Monocyte/Macrophag 8 H Fluid Comment C. difficile Ag & Toxin 10/31/16 16:24 POC Glucose (mg/dL) 115 H Fluid Source Fluid Appearance Fluid WBC Fluid RBC Fluid Neutrophils Fluid Lymphocytes Fld Monocyte/Macrophag Fluid Comment C. difficile Ag & Toxin Assessment & Plan (1) Foot infection Status: Acute (2) Lower limb ischemia Status: Acute (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 - Assessment and Plan (Free Text) Assessment: cont iv rx vascular eval
--- NOTE | 2016-10-31 20:46 | CARD ---
APPROVED REPORT Protocol: LEXISCAN Test Type: LEXISCAN STRESS Test Indications: PRE OP Target HR: 170 bpm Resting ECG: normal Resting Heart Rate: 85 bpm Resting Blood Pressure: 136/80mmHg submaximum (85%): 145 bpm TEST SUMMARY [id number]:01..1.083/.0. PREINFSNHYPERV.34:360.00.01.193989/80.4. INFUSIONDOSE 100:300.00.01.085/.0. PAIUYUNIZ66:080.00..412407/80.0. PROCEDURE Pharmacologic stress testing was performed using 0.4mg per 5ml of regadenoson given intravenously over 7-10 seconds. POST EXERCISE Reason for Termination: Lexiscan protocol completed Target HR: No Max HR: 85 bpm 52% of Maximum Predicted HR: 170 bpm Exercise duration: 00:30 min:sec, 0 Stage Exercise capacity: 1.0METs Max Blood Pressure: 140/80mmHg Blood Pressure response to exercise: appropriate Heart Rate response to exercise: appropritate Chest Pain: No, none Angina index: 0 Arrhythmia: No, none ST Change: No, none Deviation: 0 mm INTERPRETATION Stress EKG Conclusion: Nuclear Imaging to follow EXAM: Myocardial Perfusion REST/STRESS Imaging Protocol The imaging protocol used to acquire images was Rest Tc-99m/stress Tc-99m 1 day Rest Spect myocardial perfusion imaging was performed in supine position 45 minutes following the injection of 13.2 mCi of Tc-99 Myoview. Gated Stress Spect was performed 45 minutes after intravenous 32.5 mCi Tc-99 Myoview injection. The images were gated to evaluate regional wall motion and calculate ventricular ejection fraction.Images were reconstructed using backfilter projection method in short horizontal and verticle long axis. Spect slices were generated. RESTING DATA YYI628.50acQF8.80L/min ESV48.00mlMyocardial Mwab155.00g Av. Heart Rate82.00bpm EF60.00% STRESS DATA AXO354.67vlFI5.30L/min ESV50.00mlMyocardial Dhpf162.00g EF55.00% Regional WT score at stress:2.00 Regional WM score at stress:0.00 Summed WT score at stress:29.00 Av. Heart Rate86.00bpmSummed WM score at stress:8.00 LV Perf. Quant 17 Seg. SSS1.00 17 Seg. SRS0.00 17 Seg. SDS1.00 Stress Defect Extent (% LAD)0.00Rest Defect Extent (% LAD)0.00Rev. Defect Extent (% LAD)0.00 Stress Defect Extent (% LCX)10.00Rest Defect Extent (% LCX)10.00Rev. Defect Extent (% LCX)5.00 Stress Defect Extent (% RCA)0.00Rest Defect Extent (% RCA)0.00Rev. Defect Extent (% RCA)0.00 Stress Defect Extent (% TRACEY)2.00Rest Defect Extent (% TRACEY)1.70Rev. Defect Extent (% TRACEY)1.10 Other Information Quality:Good IMPRESSION Normal Myocardial Perfusion exercise stress study Left Ventricle LV Size/Shape: The left ventricle is normal size. LV Function:Left ventricle systolic function is normal. The Ejection Fraction is >55%. Conclusion 1. No stress induced ischemia 2. Normal EF
[2016-10-31] MEDS: (Lantus) Insulin Glargine, Recombinant SC SCH (22:14)
[2016-10-31] MEDS: Rosuvastatin Calcium 2.5 mg Tab PO SCH (22:15)
[2016-11-01] MEDS: Albuterol 0.083% Inhal Sol (2.5 mg/3 mL) UD IH SCH ×5 (00:38→16:55)
[2016-11-01] MEDS: Piperacill/Tazo 2.25gm in Dex 2.25 GM/50 ML BAG IVPB SCH ×3 (04:19→21:11)
[2016-11-01 07:56] LABS: HEMATOCRIT 26.5 % (34.0-47.0); MEAN CORPUSCULAR HEMOGLOBIN 32.5 pg (27.0-31.0); MEAN CORPUSCULAR HGB CONC 32.7 g/dL (33.0-37.0); MEAN PLATELET VOLUME 8.1 fL (7.2-11.7); RED CELL DISTRIBUTION WIDTH 18.5 % (11.5-14.5); WHITE BLOOD COUNT 15.2 K/uL (4.8-10.8)
[2016-11-01 07:59] LABS: MEAN CELL VOLUME 99.4 fL (81.0-99.0)
[2016-11-01] MEDS: (Novolin R) Insulin Human Regular 100 units/ml vial SC SCH ×4 (08:08→22:25)
[2016-11-01 08:13] LABS: CHLORIDE 89 mmol/L (98-107); SODIUM 134 mmol/L (132-148)
[2016-11-01 08:14] LABS: POTASSIUM 3.1 mmol/L (3.6-5.2)
[2016-11-01 08:15] LABS: CHOLESTEROL 124 mg/dL (0-199)
[2016-11-01 08:16] LABS: ALKALINE PHOSPHATASE 89 U/L (38-126); ALT/SGPT 27 U/L (9-52); AST/SGOT 23 U/L (14-36); BILIRUBIN,TOTAL 0.5 mg/dL (0.2-1.3); BLOOD UREA NITROGEN 65 mg/dL (7-17); CALCIUM 7.9 mg/dl (8.6-10.4); CARBON DIOXIDE 24 mmol/L (22-30); GFR AFRICAN-AMERICAN 4; GLUCOSE,RANDOM 229 mg/dL (65-105); PHOSPHOROUS 9.6 mg/dL (2.5-4.5); TOTAL PROTEIN 6.8 g/dL (6.3-8.3)
[2016-11-01 08:44] LABS: THYROID STIMULATING HORMONE 1.46 mIU/L (0.46-4.68)
--- NOTE | 2016-11-01 09:49 | CP.PCM.PN ---
Subjective - Date & Time of Evaluation Date of Evaluation: 11/01/16 Time of Evaluation: 09:46 - Subjective Subjective: Reviewed case with patient, examined at bedside Na improved with control BSs, IV saline Surgical plans for possible LE bypass, vascular stents noted Echo showed severe pulmonary HTN; EF ok BP still elevated Phos increased- phoslo was maximized K low- needs repletion Still with severe pain in toe #1 on right no more diarrhea; c.diff negative Now followed by ID - IV ABs continued Objective - Vital Signs/Intake and Output Vital Signs (last 24 hours): Temp Pulse Resp BP Pulse Ox 98.7 F 90 20 171/82 H 96 11/01/16 07:00 11/01/16 07:00 11/01/16 07:00 11/01/16 07:00 11/01/16 07:00 Intake and Output: 11/01/16 11/01/16 06:59 18:59 Intake Total 0 Balance 0 - Medications Medications: Current Medications Albuterol Sulfate (Albuterol 0.083% Inhal Jojo (2.5 Mg/3 Ml) Ud) 2.5 mg IH RQ4 [facility] Last Admin: 11/01/16 07:58 Dose: Not Given Amlodipine Besylate (Norvasc) 10 mg PO DAILY [facility] Last Admin: 10/31/16 12:30 Dose: 10 mg Aspirin (Ecotrin) 81 mg PO DAILY [facility] Last Admin: 10/31/16 12:30 Dose: 81 mg Calcium Acetate (Phoslo) 2,668 mg PO TIDCC [facility] Last Admin: 11/01/16 08:09 Dose: Not Given Carvedilol (Coreg) 12.5 mg PO BID [facility] Last Admin: 10/31/16 18:26 Dose: 12.5 mg Epoetin Alec (Procrit) 10,000 unit SC MWF [facility] Last Admin: 10/31/16 11:35 Dose: Not Given Ferrous Sulfate (Feosol) 325 mg PO DAILY [facility] Last Admin: 10/31/16 12:30 Dose: 325 mg Heparin Sodium (Porcine) (Heparin) 5,000 units SC Q8 [facility] Last Admin: 11/01/16 06:24 Dose: 5,000 units Piperacillin Sod/Tazobactam Sod (Zosyn 2.25 Gm Iv Premix) 2.25 gm in 50 mls @ 100 mls/hr IVPB Q8H [facility] Last Admin: 11/01/16 04:19 Dose: 100 mls/hr Vancomycin HCl 1 gm/ Sodium (Chloride) 250 mls @ 166.7 mls/hr IVPB MWF [facility] Insulin Glargine (Lantus) 20 unit SC [facility] Last Admin: 10/31/16 22:14 Dose: 20 units Insulin Human Regular (Novolin R) 0 unit SC ACHS [facility] PRN Reason: Protocol Last Admin: 11/01/16 08:08 Dose: Not Given Morphine Sulfate (Morphine) 1 mg IVP Q4 PRN PRN Reason: Pain, moderate (4-7) Last Admin: 10/31/16 22:45 Dose: 1 mg Rosuvastatin Calcium (Crestor) 2.5 mg PO [facility] Last Admin: 10/31/16 22:15 Dose: Not Given Vancomycin HCl (Vancocin (Oral Or Rectal Use)) 125 mg PO QID [facility] Last Admin: 10/31/16 22:11 Dose: Not Given - Labs Labs: 11/01/16 07:39 11/01/16 07:39 PT 11.5 SECONDS (9.7-12.2) 10/26/16 18:15 INR 1.0 10/26/16 18:15 APTT 27 SECONDS (21-34) 10/26/16 18:15 - Constitutional Appears: No Acute Distress, Chronically Ill - Head Exam Head Exam: ATRAUMATIC, NORMAL INSPECTION - Eye Exam Eye Exam: EOMI, Normal appearance - Neck Exam Neck Exam: Normal Inspection. absent: Tenderness - Respiratory Exam Respiratory Exam: Clear to Ausculation Bilateral, NORMAL BREATHING PATTERN - Cardiovascular Exam Cardiovascular Exam: REGULAR RHYTHM, +S1 - GI/Abdominal Exam GI & Abdominal Exam: Distended, Soft - Extremities Exam Extremities Exam: Joint Swelling, Tenderness - Neurological Exam Neurological Exam: Alert, CN II-XII Intact - Psychiatric Exam Psychiatric exam: Agitated, Anxious - Skin Skin Exam: Mottled, Warm Assessment and Plan (1) Type 2 diabetes mellitus with diabetic nephropathy Status: Acute (2) Chronic anemia Status: Acute (3) Foot infection Status: Acute (4) Lower limb ischemia Status: Acute (5) ESRD on peritoneal dialysis Status: Acute (6) Hypertension Status: Acute - Assessment and Plan (Free Text) Plan: Same PD Replete K Add ARB IV ABs as per ID Await surgical decision for bypass, stents follow up chemistries
[2016-11-01] MEDS ORDERED: Potassium Chloride 20 mEq/15 ml LIQ UD PO ONE (10:00)
--- NOTE | 2016-11-01 10:51 | CP.PCM.PN ---
Subjective - Date & Time of Evaluation Date of Evaluation: 11/01/16 Time of Evaluation: 10:00 - Subjective Subjective: Patient was seen and evaluated at bedside this morning for follow-up on Right foot ischemic changes. Patient states that she continues to experience ongoing pain to her Right foot. Denies any F/C/N/V/SOB/CP. No other pedal complaints reported at this time. Objective - Vital Signs/Intake and Output Vital Signs (last 24 hours): Temp Pulse Resp BP Pulse Ox 98.7 F 90 20 171/82 H 96 11/01/16 07:00 11/01/16 07:00 11/01/16 07:00 11/01/16 07:00 11/01/16 07:00 Intake and Output: 11/01/16 11/01/16 06:59 18:59 Intake Total 0 Balance 0 - Medications Medications: Current Medications Albuterol Sulfate (Albuterol 0.083% Inhal Jojo (2.5 Mg/3 Ml) Ud) 2.5 mg IH RQ4 [facility] Last Admin: 11/01/16 07:58 Dose: Not Given Amlodipine Besylate (Norvasc) 10 mg PO DAILY [facility] Last Admin: 10/31/16 12:30 Dose: 10 mg Aspirin (Ecotrin) 81 mg PO DAILY [facility] Last Admin: 10/31/16 12:30 Dose: 81 mg Calcium Acetate (Phoslo) 2,668 mg PO TIDCC [facility] Last Admin: 11/01/16 08:09 Dose: Not Given Carvedilol (Coreg) 12.5 mg PO BID [facility] Last Admin: 10/31/16 18:26 Dose: 12.5 mg Epoetin Alec (Procrit) 10,000 unit SC MWF [facility] Last Admin: 10/31/16 11:35 Dose: Not Given Ferrous Sulfate (Feosol) 325 mg PO DAILY [facility] Last Admin: 10/31/16 12:30 Dose: 325 mg Heparin Sodium (Porcine) (Heparin) 5,000 units SC Q8 [facility] Last Admin: 11/01/16 06:24 Dose: 5,000 units Piperacillin Sod/Tazobactam Sod (Zosyn 2.25 Gm Iv Premix) 2.25 gm in 50 mls @ 100 mls/hr IVPB Q8H [facility] Last Admin: 11/01/16 04:19 Dose: 100 mls/hr Vancomycin HCl 1 gm/ Sodium (Chloride) 250 mls @ 166.7 mls/hr IVPB MWF [facility] Insulin Glargine (Lantus) 20 unit SC HS [facility] Last Admin: 10/31/16 22:14 Dose: 20 units Insulin Human Regular (Novolin R) 0 unit SC ACHS [facility] PRN Reason: Protocol Last Admin: 11/01/16 08:08 Dose: Not Given Losartan Potassium (Cozaar) 100 mg PO DAILY [facility] Morphine Sulfate (Morphine) 1 mg IVP Q4 PRN PRN Reason: Pain, moderate (4-7) Last Admin: 11/01/16 10:14 Dose: 1 mg Rosuvastatin Calcium (Crestor) 2.5 mg PO [facility] Last Admin: 10/31/16 22:15 Dose: Not Given Vancomycin HCl (Vancocin (Oral Or Rectal Use)) 125 mg PO QID [facility] Last Admin: 10/31/16 22:11 Dose: Not Given - Labs Labs: 11/01/16 07:39 11/01/16 07:39 PT 11.5 SECONDS (9.7-12.2) 10/26/16 18:15 INR 1.0 10/26/16 18:15 APTT 27 SECONDS (21-34) 10/26/16 18:15 - Constitutional Appears: Well, Non-toxic, No Acute Distress - Extremities Exam Additional comments: Bilateral foot examination: Vascular: DP pulse faintly palpable 1/4 bilaterally; PT pulse non-palpable, aucultated via doppler. Capillary fill time prolonged in all digits >4 secs to all digits Right hallux, 2nd, & 4th digits appear pale, blanched, and cool to touch. . Neuro: light touch sensation and motor function grossly intact Derm: Slight dark dusky discoloration noted to Right hallux consistent with ischemic changes to the digit. No open wound noted; Right hallux toenail is absent; no edema, no erythema, no open lesions; no clinical signs of infection noted. Right distal 5th digit showing darkening ischemic changes. Plantar mid foot area also appear slightly dusky as well. No open wound noted. Ortho: significant pain elicited upon palpation of the Right hallux - Neurological Exam Neurological Exam: Alert, Awake, CN II-XII Intact, Oriented x3 - Psychiatric Exam Psychiatric exam: Normal Affect, Normal Mood Assessment and Plan - Assessment and Plan (Free Text) Assessment: 51 y/o female with ischemic changes noted to the Right forefoot secondary to PVD. ( Possible Buerger's disease) Plan: Patient was seen and evaluated at bedside All the questions and concerns were addressed Discussed patient in detail with attending, Dr. Aldrich Labs and vitals reviewed: WBC (15.2); afebrile Right forefoot ischemia has progressed from ischemic hallux to ischemic changes of the 3rd and 5th digits as well CT angio report reviewed: bilateral diffuse arterial atherosclerotic disease noted; occlusion of bilateral SFA; heavy calcification of bilateral anterior and posterior tibial aa. Arterial duplex report pending- will follow-up on results As per Dr. Clark, patient to undergo RLE bypass surgery; patient is currently in the process of undergoing cardiac clearance with Echo and stress test Podiatry to follow while patient remains in house
[2016-11-01 11:08] LABS: FOLATE > 20.0 ng/mL
[2016-11-01] MEDS: Vancomycin 125 MG/5 ML SOLN (ORAL/RECTAL) PO SCH ×5 (11:36→22:48)
[2016-11-01] MEDS ORDERED: Potassium Chloride 20 mEq ER Tab PO ONE (11:42)
--- NOTE | 2016-11-01 14:18 | CP.PCM.PN ---
Subjective - Date & Time of Evaluation Date of Evaluation: 11/01/16 Time of Evaluation: 14:15 - Subjective Subjective: Vasc Sx: Dr Clark Pt S&E. NAEO. Receiving peritoneal dialysis. Cardiology work-up noted. Plan is for angio of LLE and bypass of RLE in near future. Further date/time of intervention to follow OK to feed pt in the interim d/w Dr Eduardo Lopez, DO, PGY2 Objective - Vital Signs/Intake and Output Vital Signs (last 24 hours): Temp Pulse Resp BP Pulse Ox 98.7 F 90 20 172/82 H 96 11/01/16 07:00 11/01/16 07:00 11/01/16 07:00 11/01/16 11:35 11/01/16 07:00 Intake and Output: 11/01/16 11/01/16 06:59 18:59 Intake Total 0 Balance 0 - Medications Medications: Current Medications Albuterol Sulfate (Albuterol 0.083% Inhal Jojo (2.5 Mg/3 Ml) Ud) 2.5 mg IH RQ4 [facility] Last Admin: 11/01/16 13:27 Dose: Not Given Amlodipine Besylate (Norvasc) 10 mg PO DAILY [facility] Last Admin: 11/01/16 11:35 Dose: 10 mg Aspirin (Ecotrin) 81 mg PO DAILY [facility] Last Admin: 11/01/16 11:35 Dose: 81 mg Calcium Acetate (Phoslo) 2,668 mg PO TIDCC [facility] Last Admin: 11/01/16 12:12 Dose: 2,668 mg Carvedilol (Coreg) 12.5 mg PO BID [facility] Last Admin: 11/01/16 11:35 Dose: 12.5 mg Epoetin Alec (Procrit) 10,000 unit SC MWF [facility] Last Admin: 10/31/16 11:35 Dose: Not Given Ferrous Sulfate (Feosol) 325 mg PO DAILY [facility] Last Admin: 11/01/16 11:37 Dose: 325 mg Heparin Sodium (Porcine) (Heparin) 5,000 units SC Q8 [facility] Last Admin: 11/01/16 06:24 Dose: 5,000 units Piperacillin Sod/Tazobactam Sod (Zosyn 2.25 Gm Iv Premix) 2.25 gm in 50 mls @ 100 mls/hr IVPB Q8H [facility] Last Admin: 11/01/16 11:37 Dose: 100 mls/hr Vancomycin HCl 1 gm/ Sodium (Chloride) 250 mls @ 166.7 mls/hr IVPB MWF [facility] Insulin Glargine (Lantus) 20 unit SC [facility] Last Admin: 10/31/16 22:14 Dose: 20 units Insulin Human Regular (Novolin R) 0 unit SC ACHS [facility] PRN Reason: Protocol Last Admin: 11/01/16 12:05 Dose: Not Given Losartan Potassium (Cozaar) 100 mg PO DAILY [facility] Last Admin: 11/01/16 11:35 Dose: 100 mg Rosuvastatin Calcium (Crestor) 2.5 mg PO [facility] Last Admin: 10/31/16 22:15 Dose: Not Given Vancomycin HCl (Vancocin (Oral Or Rectal Use)) 125 mg PO QID [facility] Last Admin: 11/01/16 11:36 Dose: 125 mg - Labs Labs: 11/01/16 07:39 11/01/16 07:39 PT 11.5 SECONDS (9.7-12.2) 10/26/16 18:15 INR 1.0 10/26/16 18:15 APTT 27 SECONDS (21-34) 10/26/16 18:15 - Constitutional Appears: Non-toxic, No Acute Distress - Head Exam Head Exam: NORMOCEPHALIC - Respiratory Exam Respiratory Exam: absent: Accessory Muscle Use, Respiratory Distress - Cardiovascular Exam Cardiovascular Exam: REGULAR RHYTHM - GI/Abdominal Exam GI & Abdominal Exam: Soft. absent: Distended, Rigid, Tenderness Additional comments: dialysis access site c/d/i - Extremities Exam Additional comments: dry gangrene of right hallux DP/PT not palpable - Neurological Exam Neurological Exam: Alert, Awake, Oriented x3 - Psychiatric Exam Psychiatric exam: Normal Affect, Normal Mood - Skin Skin Exam: Normal Color, Warm
--- NOTE | 2016-11-01 15:14 | VASCLAB ---
PROCEDURE: Lower Extremity Vein mapping. HISTORY: pre op possible bypass PRIORS: None. TECHNIQUE: Bilateral common femoral, femoral, popliteal and posterior tibial, peroneal and great saphenous veins were evaluated. Flow was assessed with color Doppler, compressibility, assessment of phasic flow and augmentation response. Report prepared by Alfonso Blood, TARA, RVT FINDINGS: RIGHT: 1. Common Femoral Vein: Compressibility - Fully compressible: Thrombus - None : Flow - Phasic: Augmentation -Normal: Reflux - None. 2. Femoral Vein:Compressibility - Fully compressible: Thrombus - None 3. Popliteal Vein: Compressibility - Fully compressible: Thrombus - None 4. Posterior Tibial Vein: Compressibility - Fully compressible: Thrombus - None 5. Peroneal Vein:Compressibility - Fully compressible: Thrombus - None 6. Greater Saphenous Vein: Compressibility - Fully compressible: Thrombus - None 6.1. Thigh - Proximal Diameter: 0.55cm. Mid Diameter: 0.45cm. Distal Diameter: 0.34cm. Knee Diameter: 0.38cm. 6.2. Calf - Proximal Diameter: 0.35cm. Mid Diameter:0.37cm. Distal Diameter: 0.37cm 6.3. Ankle - Diameter: 0.36cm 7. [place] Saphenous Vein: Compressibility - Fully compressible: thrombus - None 7.1. Knee - Diameter 0.41cm 7.2. Calf - Proximal Diameter: 0.38cm. Mid Diameter: 0.32cm. Distal Diameter: 0.37cm. 7.3. Ankle - Diameter: 0.40cm LEFT: 1. Common Femoral Vein: Compressibility - Fully compressible: Thrombus - None : Flow - Phasic: Augmentation -Normal: Reflux - None. 2. Femoral Vein:Compressibility - Fully compressible: Thrombus - None 3. Popliteal Vein: Compressibility - Fully compressible: Thrombus - None 4. Posterior Tibial Vein: Compressibility - Fully compressible: Thrombus - None 5. Peroneal Vein:Compressibility - Fully compressible: Thrombus - None 6. Greater Saphenous Vein: Compressibility - Fully compressible: Thrombus - None 6.1. Thigh - Proximal Diameter: 0.36cm. Mid Diameter: 0.32cm. Distal Diameter: 0.32cm. Knee Diameter: 0.34cm. 6.2. Calf - Proximal Diameter: 0.34cm. Mid Diameter:0.28cm. Distal Diameter: 0.34cm 6.3. Ankle - Diameter: 0.32cm 7. [place] Saphenous Vein: Compressibility - Fully compressible: thrombus - None 7.1. Knee - Diameter 0.40cm 7.2. Calf - Proximal Diameter: 0.38cm. Mid Diameter: 0.37cm. Distal Diameter: 0.34cm. 7.3. Ankle - Diameter: 0.34cm OTHER FINDINGS: Right: None. Left: None. IMPRESSION: Right: Diameter measurements of the right greater saphenous vein are measured between 0.34 cm and 0.55 cm and lesser saphenous vein is measured between 0.32 cm and 0.41 cm. Left: Diameter measurements of the left greater saphenous vein are measured between 0.28 cm and 0.36 cm and lesser saphenous vein is measured between 0.34 cm and 0.40 cm.
--- NOTE | 2016-11-01 17:37 | CP.PCM.PN ---
Subjective - Date & Time of Evaluation Date of Evaluation: 11/01/16 Time of Evaluation: 08:00 - Subjective Subjective: Plan is for angio of LLE and bypass of RLE in near future. cont iv antibiotics for infected toe prognosis guarded Objective - Vital Signs/Intake and Output Vital Signs (last 24 hours): Temp Pulse Resp BP Pulse Ox 98.0 F 90 20 136/77 96 11/01/16 15:12 11/01/16 15:12 11/01/16 15:12 11/01/16 17:23 11/01/16 15:12 Intake and Output: 11/01/16 11/01/16 06:59 18:59 Intake Total 500 Balance 500 - Medications Medications: Current Medications Albuterol Sulfate (Albuterol 0.083% Inhal Jojo (2.5 Mg/3 Ml) Ud) 2.5 mg IH RQ4 [facility] Last Admin: 11/01/16 13:27 Dose: Not Given Amlodipine Besylate (Norvasc) 10 mg PO DAILY [facility] Last Admin: 11/01/16 11:35 Dose: 10 mg Aspirin (Ecotrin) 81 mg PO DAILY [facility] Last Admin: 11/01/16 11:35 Dose: 81 mg Calcium Acetate (Phoslo) 2,668 mg PO TIDCC [facility] Last Admin: 11/01/16 12:12 Dose: 2,668 mg Carvedilol (Coreg) 12.5 mg PO BID [facility] Last Admin: 11/01/16 17:23 Dose: 12.5 mg Epoetin Alec (Procrit) 10,000 unit SC [facility] [place] Last Admin: 10/31/16 11:35 Dose: Not Given Ferrous Sulfate (Feosol) 325 mg PO DAILY [facility] Last Admin: 11/01/16 11:37 Dose: 325 mg Heparin Sodium (Porcine) (Heparin) 5,000 units SC Q8 [facility] Last Admin: 11/01/16 14:27 Dose: 5,000 units Piperacillin Sod/Tazobactam Sod (Zosyn 2.25 Gm Iv Premix) 2.25 gm in 50 mls @ 100 mls/hr IVPB Q8H [facility] Last Admin: 11/01/16 11:37 Dose: 100 mls/hr Vancomycin HCl 1 gm/ Sodium (Chloride) 250 mls @ 166.7 mls/hr IVPB [facility] [place] Insulin Glargine (Lantus) 20 unit SC [facility] Last Admin: 10/31/16 22:14 Dose: 20 units Insulin Human Regular (Novolin R) 0 unit SC [facility] PRN Reason: Protocol Last Admin: 11/01/16 17:30 Dose: 2 unit Losartan Potassium (Cozaar) 100 mg PO DAILY [facility] Last Admin: 11/01/16 11:35 Dose: 100 mg Rosuvastatin Calcium (Crestor) 2.5 mg PO [facility] Last Admin: 10/31/16 22:15 Dose: Not Given Vancomycin HCl (Vancocin (Oral Or Rectal Use)) 125 mg PO QID [facility] Last Admin: 11/01/16 14:27 Dose: 125 mg - Labs Labs: 11/01/16 07:39 11/01/16 07:39 PT 11.5 SECONDS (9.7-12.2) 10/26/16 18:15 INR 1.0 10/26/16 18:15 APTT 27 SECONDS (21-34) 10/26/16 18:15 - Constitutional Appears: Non-toxic, Chronically Ill - Head Exam Head Exam: NORMOCEPHALIC - Eye Exam Eye Exam: PERRL. absent: Scleral icterus - ENT Exam ENT Exam: Mucous Membranes Dry - Neck Exam Neck Exam: absent: Lymphadenopathy - Respiratory Exam Respiratory Exam: Decreased Breath Sounds, Rhonchi - Cardiovascular Exam Cardiovascular Exam: REGULAR RHYTHM, +S1, +S2 - GI/Abdominal Exam GI & Abdominal Exam: Distended, Soft - Rectal Exam Rectal Exam: Deferred Assessment and Plan (1) Foot infection Status: Acute (2) Lower limb ischemia Status: Acute (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
--- NOTE | 2016-11-01 21:48 | CP.PCM.PN ---
Subjective - Date & Time of Evaluation Date of Evaluation: 11/01/16 Time of Evaluation: 16:00 - Subjective Subjective: Pt with no cardiac events Patient s/p stress test (No evidence of stress induced ischemia) Normal EF Physical Examination - Constitutional Appears: Older Than Stated Age, Chronically Ill - Head Exam Head Exam: ATRAUMATIC, NORMOCEPHALIC - Eye Exam Eye Exam: EOMI, Normal appearance Pupil Exam: NORMAL ACCOMODATION - ENT Exam ENT Exam: Mucous Membranes Moist - Respiratory Exam Respiratory Exam: Clear to Ausculation Bilateral. absent: Rales, Rhonchi, Wheezes - Cardiovascular Exam Cardiovascular Exam: REGULAR RHYTHM, +S1, +S2 - GI/Abdominal Exam GI & Abdominal Exam: Soft, Normal Bowel Sounds - Extremities Exam Extremities Exam: absent: Calf Tenderness, Normal Capillary Refill Additional comments: R toes dusky color - Neurological Exam Neurological Exam: Alert, Awake - Psychiatric Exam Psychiatric exam: Normal Affect, Normal Mood - Skin Skin Exam: Dry, Pallor, Warm Objective - Vital Signs/Intake and Output Vital Signs (last 24 hours): Temp Pulse Resp BP Pulse Ox 98.0 F 90 20 136/77 96 11/01/16 15:12 11/01/16 15:12 11/01/16 15:12 11/01/16 17:23 11/01/16 15:12 Intake and Output: 11/01/16 11/02/16 18:59 06:59 Intake Total 500 Balance 500 - Medications Medications: Current Medications Albuterol Sulfate (Albuterol 0.083% Inhal Jojo (2.5 Mg/3 Ml) Ud) 2.5 mg IH RQ4 [facility] Last Admin: 11/01/16 16:55 Dose: Not Given Amlodipine Besylate (Norvasc) 10 mg PO DAILY [facility] Last Admin: 11/01/16 11:35 Dose: 10 mg Aspirin (Ecotrin) 81 mg PO DAILY [facility] Last Admin: 11/01/16 11:35 Dose: 81 mg Calcium Acetate (Phoslo) 2,668 mg PO TIDCC [facility] Last Admin: 11/01/16 12:12 Dose: 2,668 mg Carvedilol (Coreg) 12.5 mg PO BID [facility] Last Admin: 11/01/16 17:23 Dose: 12.5 mg Epoetin Alec (Procrit) 10,000 unit SC MWF [facility] Last Admin: 10/31/16 11:35 Dose: Not Given Ferrous Sulfate (Feosol) 325 mg PO DAILY [facility] Last Admin: 11/01/16 11:37 Dose: 325 mg Heparin Sodium (Porcine) (Heparin) 5,000 units SC Q8 [facility] Last Admin: 11/01/16 14:27 Dose: 5,000 units Piperacillin Sod/Tazobactam Sod (Zosyn 2.25 Gm Iv Premix) 2.25 gm in 50 mls @ 100 mls/hr IVPB Q8H [facility] Last Admin: 11/01/16 21:11 Dose: Not Given Vancomycin HCl 1 gm/ Sodium (Chloride) 250 mls @ 166.7 mls/hr IVPB MWF [facility] Insulin Glargine (Lantus) 20 unit SC HS [facility] Last Admin: 10/31/16 22:14 Dose: 20 units Insulin Human Regular (Novolin R) 0 unit SC ACHS [facility] PRN Reason: Protocol Last Admin: 11/01/16 17:30 Dose: 2 unit Losartan Potassium (Cozaar) 100 mg PO DAILY [facility] Last Admin: 11/01/16 11:35 Dose: 100 mg Rosuvastatin Calcium (Crestor) 2.5 mg PO HS [facility] Last Admin: 10/31/16 22:15 Dose: Not Given Vancomycin HCl (Vancocin (Oral Or Rectal Use)) 125 mg PO QID [facility] Last Admin: 11/01/16 14:27 Dose: 125 mg - Labs Labs: 11/01/16 07:39 11/01/16 07:39 PT 11.5 SECONDS (9.7-12.2) 10/26/16 18:15 INR 1.0 10/26/16 18:15 APTT 27 SECONDS (21-34) 10/26/16 18:15 Assessment and Plan - Assessment and Plan (Free Text) Assessment: 51F, past smoker who quitted smoking last week, with Hx of PAD, HTN/HLD, DM2, ESRD on peritoneal HD, has ischemic Right foot with increasing pain. cardiology was consulted for cardiac risk assessment for a 2 step surgical procedures (1) angio to stent LLE; (2) RLE bypass surgery. Echo and stress test conducted. 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 - pending PD fluid analysis vs cellulitis/osteomyelitis vs c.diff - vanco and zosyn - increased diarrhea, c.diff pending R leg ischemia - progressing Foot infection r/o osteomyelitis - from hallux to 3rd and 5th digit PAD - CTA abdomin and pelvis: bilateral diffuse arterial atherosclerotic disease; occlusion of bilateral SFA; heavy calcification of bilateral anterior and posterior tibial aa. - high likelyhood of CAD vein mapping of the bilateral LE to assess for possible graft - Due to type 4 aortic arch, bilateral lower extremity run offs not performed due to technical difficulty and pt's CKD. IDDM2 Lable sugar - due to infection and decreased kidney metabolism of insulun ESRD on PD Macrocytic anemia, chronic - pending B12, folate - defer to primary team for managing Allergy: shrimp DVT prophylaxis - heparin 5000 q8 Cardiac point of view (Normal EF and stress test) assessed as intermediate risk for Peripheral angiogram and intervention. Intermediate to high cardiac risk for Vascular bypass. If the benefit outweighs the risk please proceed with the needed therapeutic procedures/surgery Thank you
[2016-11-01] MEDS: (Lantus) Insulin Glargine, Recombinant SC SCH (22:29)
[2016-11-01] MEDS: Rosuvastatin Calcium 2.5 mg Tab PO SCH ×2 (22:29→22:48)
[2016-11-02] MEDS: Albuterol 0.083% Inhal Sol (2.5 mg/3 mL) UD IH SCH ×4 (00:44→13:36)
[2016-11-02] MEDS: Piperacill/Tazo 2.25gm in Dex 2.25 GM/50 ML BAG IVPB SCH ×3 (04:13→18:49)
[2016-11-02 07:19] LABS: HEMATOCRIT 25.7 % (34.0-47.0); MEAN CELL VOLUME 99.2 fL (81.0-99.0); MEAN CORPUSCULAR HEMOGLOBIN 33.3 pg (27.0-31.0); MEAN CORPUSCULAR HGB CONC 33.5 g/dL (33.0-37.0); MEAN PLATELET VOLUME 8.6 fL (7.2-11.7); RED CELL DISTRIBUTION WIDTH 18.7 % (11.5-14.5); WHITE BLOOD COUNT 15.2 K/uL (4.8-10.8)
--- NOTE | 2016-11-02 07:33 | CP.PCM.PN ---
Subjective - Date & Time of Evaluation Date of Evaluation: 11/02/16 Time of Evaluation: 07:15 - Subjective Subjective: Vasc Sx: Dr Clark Pt S&E. NAEO. No complaints. Plan is for angiography of LLE on saturday. Bypass to follow later in the week. d/w Dr Eduardo Lopez, PGY2 Objective - Vital Signs/Intake and Output Vital Signs (last 24 hours): Temp Pulse Resp BP Pulse Ox 98.4 F 82 20 170/83 H 100 11/02/16 04:15 11/02/16 04:15 11/02/16 04:15 11/02/16 04:15 11/02/16 04:15 Intake and Output: 11/02/16 11/02/16 06:59 18:59 Intake Total 0 Balance 0 - Medications Medications: Current Medications Albuterol Sulfate (Albuterol 0.083% Inhal Jojo (2.5 Mg/3 Ml) Ud) 2.5 mg IH RQ4 [facility] Last Admin: 11/02/16 03:43 Dose: Not Given Amlodipine Besylate (Norvasc) 10 mg PO DAILY [facility] Last Admin: 11/01/16 11:35 Dose: 10 mg Aspirin (Ecotrin) 81 mg PO DAILY [facility] Last Admin: 11/01/16 11:35 Dose: 81 mg Calcium Acetate (Phoslo) 2,668 mg PO TIDCC [facility] Last Admin: 11/01/16 18:45 Dose: 2,668 mg Carvedilol (Coreg) 12.5 mg PO BID [facility] Last Admin: 11/01/16 17:23 Dose: 12.5 mg Epoetin Alec (Procrit) 10,000 unit SC [facility] [place] Last Admin: 10/31/16 11:35 Dose: Not Given Ferrous Sulfate (Feosol) 325 mg PO DAILY [facility] Last Admin: 11/01/16 11:37 Dose: 325 mg Piperacillin Sod/Tazobactam Sod (Zosyn 2.25 Gm Iv Premix) 2.25 gm in 50 mls @ 100 mls/hr IVPB Q8H [facility] Last Admin: 11/02/16 04:13 Dose: Not Given Vancomycin HCl 1 gm/ Sodium (Chloride) 250 mls @ 166.7 mls/hr IVPB [facility] Insulin Glargine (Lantus) 20 unit SC [facility] Last Admin: 11/01/16 22:29 Dose: Not Given Insulin Human Regular (Novolin R) 0 unit SC ACHS [facility] PRN Reason: Protocol Last Admin: 11/01/16 22:25 Dose: Not Given Losartan Potassium (Cozaar) 100 mg PO DAILY [facility] Last Admin: 11/01/16 11:35 Dose: 100 mg Morphine Sulfate (Morphine) 1 mg IVP Q6H PRN PRN Reason: Pain Last Admin: 11/01/16 23:35 Dose: 1 mg Rosuvastatin Calcium (Crestor) 2.5 mg PO HS [facility] Last Admin: 11/01/16 22:48 Dose: Not Given Vancomycin HCl (Vancocin (Oral Or Rectal Use)) 125 mg PO QID [facility] Last Admin: 11/01/16 22:48 Dose: Not Given - Labs Labs: 11/01/16 07:39 11/01/16 07:39 PT 11.5 SECONDS (9.7-12.2) 10/26/16 18:15 INR 1.0 10/26/16 18:15 APTT 27 SECONDS (21-34) 10/26/16 18:15 - Constitutional Appears: Non-toxic, No Acute Distress - Head Exam Head Exam: NORMOCEPHALIC - Eye Exam Eye Exam: Normal appearance - Respiratory Exam Respiratory Exam: absent: Accessory Muscle Use, Respiratory Distress - Cardiovascular Exam Cardiovascular Exam: REGULAR RHYTHM. absent: Tachycardia - Neurological Exam Neurological Exam: Alert, Awake, Oriented x3 - Psychiatric Exam Psychiatric exam: Normal Affect, Normal Mood - Skin Skin Exam: Normal Color, Warm
[2016-11-02] MEDS: (Novolin R) Insulin Human Regular 100 units/ml vial SC SCH ×5 (08:15→22:00)
[2016-11-02] MEDS: EPOETIN ALFA 10,000 UNIT/ML ML SC SCH (08:18)
--- NOTE | 2016-11-02 10:53 | CP.PCM.PN ---
Subjective - Date & Time of Evaluation Date of Evaluation: 11/02/16 Time of Evaluation: 10:52 - Subjective Subjective: Pt seen at bedside for f/u right foot ischemia. Pt is scheduled for vascular procedures on Saturday with Dr. Clark. Cont with IV abx as per ID. Will cont to monitor progress of digits right foot and decide after circ status is improved. Objective - Vital Signs/Intake and Output Vital Signs (last 24 hours): Temp Pulse Resp BP Pulse Ox 97.7 F 85 20 169/78 H 99 11/02/16 08:00 11/02/16 08:00 11/02/16 08:00 11/02/16 10:09 11/02/16 08:00 Intake and Output: 11/02/16 11/02/16 06:59 18:59 Intake Total 0 Balance 0 - Medications Medications: Current Medications Albuterol Sulfate (Albuterol 0.083% Inhal Jojo (2.5 Mg/3 Ml) Ud) 2.5 mg IH RQ4 [facility] Last Admin: 11/02/16 08:11 Dose: Not Given Amlodipine Besylate (Norvasc) 10 mg PO DAILY [facility] Last Admin: 11/01/16 11:35 Dose: 10 mg Aspirin (Ecotrin) 81 mg PO DAILY [facility] Last Admin: 11/02/16 10:09 Dose: 81 mg Calcium Acetate (Phoslo) 2,668 mg PO TIDCC [facility] Last Admin: 11/02/16 08:15 Dose: 2,668 mg Carvedilol (Coreg) 12.5 mg PO BID [facility] Last Admin: 11/02/16 10:09 Dose: 12.5 mg Epoetin Alec (Procrit) 10,000 unit SC MWF [facility] Last Admin: 11/02/16 08:18 Dose: 10,000 unit Ferrous Sulfate (Feosol) 325 mg PO DAILY [facility] Last Admin: 11/01/16 11:37 Dose: 325 mg Piperacillin Sod/Tazobactam Sod (Zosyn 2.25 Gm Iv Premix) 2.25 gm in 50 mls @ 100 mls/hr IVPB Q8H [facility] Last Admin: 11/02/16 04:13 Dose: Not Given Vancomycin HCl 1 gm/ Sodium (Chloride) 250 mls @ 166.7 mls/hr IVPB MWF [facility] Last Admin: 11/02/16 08:19 Dose: 166.7 mls/hr Insulin Glargine (Lantus) 20 unit SC [facility] Last Admin: 11/01/16 22:29 Dose: Not Given Insulin Human Regular (Novolin R) 0 unit SC [facility] PRN Reason: Protocol Last Admin: 11/02/16 08:15 Dose: Not Given Losartan Potassium (Cozaar) 100 mg PO DAILY [facility] Last Admin: 11/01/16 11:35 Dose: 100 mg Morphine Sulfate (Morphine) 1 mg IVP Q6H PRN PRN Reason: Pain Last Admin: 11/01/16 23:35 Dose: 1 mg Rosuvastatin Calcium (Crestor) 2.5 mg PO [facility] Last Admin: 11/01/16 22:48 Dose: Not Given Vancomycin HCl (Vancocin (Oral Or Rectal Use)) 125 mg PO QID [facility] Last Admin: 11/01/16 22:48 Dose: Not Given - Labs Labs: 11/02/16 07:08 11/01/16 07:39 PT 11.5 SECONDS (9.7-12.2) 10/26/16 18:15 INR 1.0 10/26/16 18:15 APTT 27 SECONDS (21-34) 10/26/16 18:15
[2016-11-02] MEDS: Vancomycin 125 MG/5 ML SOLN (ORAL/RECTAL) PO SCH ×4 (12:10→22:00)
--- NOTE | 2016-11-02 13:24 | CP.PCM.PN ---
Subjective - Date & Time of Evaluation Date of Evaluation: 11/02/16 Time of Evaluation: 13:19 - Subjective Subjective: Right toe ischemia demarcating- purplish areas darker Has small amount of discharges BP still elevated- wants lower dose losartan Plans for right LE bypass and left LE vascular stent noted for 11/04 K not repeated- will repeat PD going well- fluid clear BS still elevated- to be regulated by medicine Objective - Vital Signs/Intake and Output Vital Signs (last 24 hours): Temp Pulse Resp BP Pulse Ox 97.7 F 85 20 169/78 H 99 11/02/16 08:00 11/02/16 08:00 11/02/16 08:00 11/02/16 10:09 11/02/16 08:00 Intake and Output: 11/02/16 11/02/16 06:59 18:59 Intake Total 0 Balance 0 - Medications Medications: Current Medications Albuterol Sulfate (Albuterol 0.083% Inhal Jojo (2.5 Mg/3 Ml) Ud) 2.5 mg IH RQ4 [facility] Last Admin: 11/02/16 08:11 Dose: Not Given Amlodipine Besylate (Norvasc) 10 mg PO DAILY [facility] Last Admin: 11/01/16 11:35 Dose: 10 mg Aspirin (Ecotrin) 81 mg PO DAILY [facility] Last Admin: 11/02/16 10:09 Dose: 81 mg Calcium Acetate (Phoslo) 2,668 mg PO TIDCC [facility] Last Admin: 11/02/16 11:20 Dose: 2,668 mg Carvedilol (Coreg) 12.5 mg PO BID [facility] Last Admin: 11/02/16 10:09 Dose: 12.5 mg Epoetin Alec (Procrit) 10,000 unit SC MWF [facility] Last Admin: 11/02/16 08:18 Dose: 10,000 unit Ferrous Sulfate (Feosol) 325 mg PO DAILY [facility] Last Admin: 11/01/16 11:37 Dose: 325 mg Piperacillin Sod/Tazobactam Sod (Zosyn 2.25 Gm Iv Premix) 2.25 gm in 50 mls @ 100 mls/hr IVPB Q8H [facility] Last Admin: 11/02/16 04:13 Dose: Not Given Vancomycin HCl 1 gm/ Sodium (Chloride) 250 mls @ 166.7 mls/hr IVPB MWF [facility] Last Admin: 11/02/16 08:19 Dose: 166.7 mls/hr Insulin Glargine (Lantus) 20 unit SC [facility] Last Admin: 11/01/16 22:29 Dose: Not Given Insulin Human Regular (Novolin R) 0 unit SC ACHS [facility] PRN Reason: Protocol Last Admin: 11/02/16 11:19 Dose: 8 unit Losartan Potassium (Cozaar) 100 mg PO DAILY [facility] Last Admin: 11/02/16 10:30 Dose: Not Given Morphine Sulfate (Morphine) 1 mg IVP Q6H PRN PRN Reason: Pain Last Admin: 11/01/16 23:35 Dose: 1 mg Rosuvastatin Calcium (Crestor) 2.5 mg PO [facility] Last Admin: 11/01/16 22:48 Dose: Not Given Vancomycin HCl (Vancocin (Oral Or Rectal Use)) 125 mg PO QID [facility] Last Admin: 11/02/16 12:10 Dose: Not Given - Labs Labs: 11/02/16 07:08 11/01/16 07:39 PT 11.5 SECONDS (9.7-12.2) 10/26/16 18:15 INR 1.0 10/26/16 18:15 APTT 27 SECONDS (21-34) 10/26/16 18:15 - Constitutional Appears: No Acute Distress, Chronically Ill - Head Exam Head Exam: ATRAUMATIC, NORMAL INSPECTION - Eye Exam Eye Exam: EOMI, Normal appearance - Neck Exam Neck Exam: Normal Inspection. absent: Tenderness - Respiratory Exam Respiratory Exam: Clear to Ausculation Bilateral, NORMAL BREATHING PATTERN - Cardiovascular Exam Cardiovascular Exam: REGULAR RHYTHM, +S1 - GI/Abdominal Exam GI & Abdominal Exam: Soft. absent: Tenderness - Extremities Exam Extremities Exam: Normal Inspection. absent: Tenderness - Neurological Exam Neurological Exam: Alert, CN II-XII Intact - Skin Skin Exam: Cyanosis, Mottled, Pallor Assessment and Plan (1) Type 2 diabetes mellitus with diabetic nephropathy Status: Acute (2) Chronic anemia Status: Acute (3) Foot infection Status: Acute (4) Lower limb ischemia Status: Acute (5) ESRD on peritoneal dialysis Status: Acute (6) Hypertension Status: Acute - Assessment and Plan (Free Text) Plan: Same PD Same IV ABs as per ID Change BP meds Follow up labs LE vascular procedures scheduled for 11/04
--- NOTE | 2016-11-02 14:29 | CP.PCM.PN ---
Subjective - Date & Time of Evaluation Date of Evaluation: 11/02/16 Time of Evaluation: 20:13 - Subjective Subjective: Ration condition unchanged. Complaining of pain in the legs. Poor appetite. But eating okay, diarrhea noted. Is receiving peritoneal dialysis at night Objective - Vital Signs/Intake and Output Vital Signs (last 24 hours): Temp Pulse Resp BP Pulse Ox 97.7 F 85 20 169/78 H 99 11/02/16 08:00 11/02/16 08:00 11/02/16 08:00 11/02/16 10:09 11/02/16 08:00 Chest good air entry. Regular heart sound. Abdomen distention noted. Right foot with gangrenous changes noted in the great toe. Intake and Output: 11/02/16 11/02/16 06:59 18:59 Intake Total 0 Balance 0 - Medications Medications: Current Medications Albuterol Sulfate (Albuterol 0.083% Inhal Jojo (2.5 Mg/3 Ml) Ud) 2.5 mg IH RQ4 [facility] Last Admin: 11/02/16 13:36 Dose: Not Given Amlodipine Besylate (Norvasc) 10 mg PO DAILY [facility] Last Admin: 11/02/16 13:36 Dose: 10 mg Aspirin (Ecotrin) 81 mg PO DAILY [facility] Last Admin: 11/02/16 10:09 Dose: 81 mg Calcium Acetate (Phoslo) 2,668 mg PO TIDCC [facility] Last Admin: 11/02/16 11:20 Dose: 2,668 mg Carvedilol (Coreg) 12.5 mg PO BID [facility] Last Admin: 11/02/16 10:09 Dose: 12.5 mg Epoetin Alec (Procrit) 10,000 unit SC MWF [facility] Last Admin: 11/02/16 08:18 Dose: 10,000 unit Ferrous Sulfate (Feosol) 325 mg PO DAILY [facility] Last Admin: 11/02/16 13:36 Dose: 325 mg Piperacillin Sod/Tazobactam Sod (Zosyn 2.25 Gm Iv Premix) 2.25 gm in 50 mls @ 100 mls/hr IVPB Q8H [facility] Last Admin: 11/02/16 13:37 Dose: 100 mls/hr Vancomycin HCl 1 gm/ Sodium (Chloride) 250 mls @ 166.7 mls/hr IVPB MWF [facility] Last Admin: 11/02/16 08:19 Dose: 166.7 mls/hr Insulin Glargine (Lantus) 20 unit SC HS [facility] Last Admin: 11/01/16 22:29 Dose: Not Given Insulin Human Regular (Novolin R) 0 unit SC ACHS [facility] PRN Reason: Protocol Last Admin: 11/02/16 11:19 Dose: 8 unit Losartan Potassium (Cozaar) 50 mg PO DAILY [facility] Morphine Sulfate (Morphine) 1 mg IVP Q6H PRN PRN Reason: Pain Last Admin: 11/01/16 23:35 Dose: 1 mg Rosuvastatin Calcium (Crestor) 2.5 mg PO HS [facility] Last Admin: 11/01/16 22:48 Dose: Not Given Vancomycin HCl (Vancocin (Oral Or Rectal Use)) 125 mg PO QID [facility] Last Admin: 11/02/16 13:36 Dose: 125 mg - Labs Labs: 11/02/16 07:08 11/01/16 07:39 PT 11.5 SECONDS (9.7-12.2) 10/26/16 18:15 INR 1.0 10/26/16 18:15 APTT 27 SECONDS (21-34) 10/26/16 18:15 Assessment and Plan (1) Foot infection Assessment & Plan: Ischemic leg. Peripheral vascular disease. End-stage renal disease. Diabetes poorly controlled, hypertension poorly controlled. History of heart failure and fluid overload status in the past. Status: Acute (2) Lower limb ischemia Status: Acute (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
[2016-11-02] MEDS: (Lantus) Insulin Glargine, Recombinant SC SCH (22:00)
[2016-11-02] MEDS: Rosuvastatin Calcium 2.5 mg Tab PO SCH (22:00)
--- NOTE | 2016-11-02 22:57 | CP.PCM.PN ---
Subjective - Date & Time of Evaluation Date of Evaluation: 11/02/16 Time of Evaluation: 09:00 - Subjective Subjective: Patient seen and evaluated No cardiac events noted Objective - Vital Signs/Intake and Output Vital Signs (last 24 hours): Temp Pulse Resp BP Pulse Ox 98.4 F 75 20 163/75 H 97 11/02/16 15:55 11/02/16 15:55 11/02/16 15:55 11/02/16 17:27 11/02/16 15:55 Intake and Output: 11/02/16 11/03/16 18:59 06:59 Intake Total 970 Balance 970 - Medications Medications: Current Medications Albuterol Sulfate (Albuterol 0.083% Inhal Jojo (2.5 Mg/3 Ml) Ud) 2.5 mg IH RQ4 [facility] Last Admin: 11/02/16 13:36 Dose: Not Given Amlodipine Besylate (Norvasc) 10 mg PO DAILY [facility] Last Admin: 11/02/16 13:36 Dose: 10 mg Aspirin (Ecotrin) 81 mg PO DAILY [facility] Last Admin: 11/02/16 10:09 Dose: 81 mg Calcium Acetate (Phoslo) 2,668 mg PO TIDCC [facility] Last Admin: 11/02/16 17:25 Dose: 2,668 mg Carvedilol (Coreg) 12.5 mg PO BID [facility] Last Admin: 11/02/16 17:27 Dose: 12.5 mg Epoetin Aelc (Procrit) 10,000 unit SC MWF [facility] Last Admin: 11/02/16 08:18 Dose: 10,000 unit Ferrous Sulfate (Feosol) 325 mg PO DAILY [facility] Last Admin: 11/02/16 13:36 Dose: 325 mg Piperacillin Sod/Tazobactam Sod (Zosyn 2.25 Gm Iv Premix) 2.25 gm in 50 mls @ 100 mls/hr IVPB Q8H [facility] Last Admin: 11/02/16 18:49 Dose: 100 mls/hr Vancomycin HCl 1 gm/ Sodium (Chloride) 250 mls @ 166.7 mls/hr IVPB MWF [facility] Last Admin: 11/02/16 08:19 Dose: 166.7 mls/hr Insulin Glargine (Lantus) 20 unit SC HS [facility] Last Admin: 11/02/16 22:00 Dose: Not Given Insulin Human Regular (Novolin R) 0 unit SC ACHS [facility] PRN Reason: Protocol Last Admin: 11/02/16 22:00 Dose: Not Given Losartan Potassium (Cozaar) 50 mg PO DAILY [facility] Morphine Sulfate (Morphine) 1 mg IVP Q6H PRN PRN Reason: Pain Last Admin: 11/01/16 23:35 Dose: 1 mg Rosuvastatin Calcium (Crestor) 2.5 mg PO HS [facility] Last Admin: 11/02/16 22:00 Dose: Not Given Vancomycin HCl (Vancocin (Oral Or Rectal Use)) 125 mg PO QID [facility] Last Admin: 11/02/16 22:00 Dose: Not Given - Labs Labs: 11/02/16 07:08 11/01/16 07:39 PT 11.5 SECONDS (9.7-12.2) 10/26/16 18:15 INR 1.0 10/26/16 18:15 APTT 27 SECONDS (21-34) 10/26/16 18:15
[2016-11-03] MEDS: Albuterol 0.083% Inhal Sol (2.5 mg/3 mL) UD IH SCH ×7 (00:53→23:48)
[2016-11-03] MEDS: Piperacill/Tazo 2.25gm in Dex 2.25 GM/50 ML BAG IVPB SCH ×3 (03:04→21:17)
[2016-11-03] MEDS: (Novolin R) Insulin Human Regular 100 units/ml vial SC SCH ×4 (08:53→21:50)
[2016-11-03] MEDS ORDERED: Potassium Chloride 20 mEq/15 ml LIQ UD PO ONE (10:00)
--- NOTE | 2016-11-03 10:02 | CP.PCM.PN ---
Subjective - Date & Time of Evaluation Date of Evaluation: 11/03/16 Time of Evaluation: 09:58 - Subjective Subjective: pt seen and examined complaints of abdominal discomfort- offered to give her zofran and antacid- she refused PD going well ongoing pain in the toe complaints about the need to take lot of medications does not want to take any more meds some loose stools ros- as per HPI, other than that 10 point ROS negative Objective - Vital Signs/Intake and Output Vital Signs (last 24 hours): Temp Pulse Resp BP Pulse Ox 98.5 F 81 20 171/74 H 98 11/03/16 09:43 11/03/16 09:43 11/03/16 09:43 11/03/16 09:43 11/03/16 09:43 Intake and Output: 11/03/16 11/03/16 06:59 18:59 Intake Total 970 Output Total 0 Balance 970 - Medications Medications: Current Medications Albuterol Sulfate (Albuterol 0.083% Inhal Jojo (2.5 Mg/3 Ml) Ud) 2.5 mg IH RQ4 [facility] Last Admin: 11/03/16 04:02 Dose: Not Given Amlodipine Besylate (Norvasc) 10 mg PO DAILY [facility] Last Admin: 11/02/16 13:36 Dose: 10 mg Aspirin (Ecotrin) 81 mg PO DAILY [facility] Last Admin: 11/02/16 10:09 Dose: 81 mg Calcium Acetate (Phoslo) 2,668 mg PO TIDCC [facility] Last Admin: 11/03/16 08:53 Dose: 2,668 mg Carvedilol (Coreg) 12.5 mg PO BID [facility] Last Admin: 11/02/16 17:27 Dose: 12.5 mg Epoetin Alec (Procrit) 10,000 unit SC MWF [facility] Last Admin: 11/02/16 08:18 Dose: 10,000 unit Ferrous Sulfate (Feosol) 325 mg PO DAILY [facility] Last Admin: 11/02/16 13:36 Dose: 325 mg Piperacillin Sod/Tazobactam Sod (Zosyn 2.25 Gm Iv Premix) 2.25 gm in 50 mls @ 100 mls/hr IVPB Q8H [facility] Last Admin: 11/03/16 03:04 Dose: 100 mls/hr Vancomycin HCl 1 gm/ Sodium (Chloride) 250 mls @ 166.7 mls/hr IVPB MWF [facility] Last Admin: 11/02/16 08:19 Dose: 166.7 mls/hr Insulin Glargine (Lantus) 20 unit SC HS [facility] Last Admin: 11/02/16 22:00 Dose: Not Given Insulin Human Regular (Novolin R) 0 unit SC ACHS [facility] PRN Reason: Protocol Last Admin: 11/03/16 08:53 Dose: 10 unit Losartan Potassium (Cozaar) 50 mg PO DAILY [facility] Morphine Sulfate (Morphine) 1 mg IVP Q6H PRN PRN Reason: Pain Last Admin: 11/03/16 03:03 Dose: 1 mg Rosuvastatin Calcium (Crestor) 2.5 mg PO HS [facility] Last Admin: 11/02/16 22:00 Dose: Not Given Vancomycin HCl (Vancocin (Oral Or Rectal Use)) 125 mg PO QID [facility] Last Admin: 11/02/16 22:00 Dose: Not Given - Labs Labs: 11/02/16 07:08 11/01/16 07:39 PT 11.5 SECONDS (9.7-12.2) 10/26/16 18:15 INR 1.0 10/26/16 18:15 APTT 27 SECONDS (21-34) 10/26/16 18:15 - Constitutional Appears: No Acute Distress, Chronically Ill - Head Exam Head Exam: ATRAUMATIC, NORMOCEPHALIC - Eye Exam Eye Exam: EOMI, PERRL - ENT Exam ENT Exam: Mucous Membranes Moist - Neck Exam Neck Exam: Full ROM - Respiratory Exam Respiratory Exam: Clear to Ausculation Bilateral. absent: Rhonchi, Wheezes - Cardiovascular Exam Cardiovascular Exam: REGULAR RHYTHM, +S1, +S2 - GI/Abdominal Exam GI & Abdominal Exam: Soft. absent: Tenderness - Extremities Exam Extremities Exam: absent: Pedal Edema Additional comments: gangrene big toe right foot - Neurological Exam Neurological Exam: Alert, Awake, Oriented x3 - Psychiatric Exam Psychiatric exam: Depressed, Normal Affect - Skin Skin Exam: Dry. absent: Rash Assessment and Plan (1) Hypokalemia Status: Acute (2) Foot infection Status: Acute (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 (4) Anemia Status: Acute (5) Bacteremia due to coagulase-negative Staphylococcus Status: Acute (6) ESRD on peritoneal dialysis Status: Acute - Assessment and Plan (Free Text) Plan: continue PD, same prescription BP elevated- likely secondary to uncontrolled pain reluctant to increase meds one dose po potassium today check chem 7 if patient agreeable
--- NOTE | 2016-11-03 10:42 | CP.PCM.PN ---
Subjective - Date & Time of Evaluation Date of Evaluation: 11/03/16 Time of Evaluation: 10:39 - Subjective Subjective: Patient seen and evaluated at bedside this morning, NAD. Patient reports continued pain to her right hallux. She denies any new complaints at this time. She denies n/v/f/c/sob. Objective - Vital Signs/Intake and Output Vital Signs (last 24 hours): Temp Pulse Resp BP Pulse Ox 98.5 F 81 20 171/86 H 98 11/03/16 09:43 11/03/16 09:43 11/03/16 09:43 11/03/16 10:01 11/03/16 09:43 Intake and Output: 11/03/16 11/03/16 06:59 18:59 Intake Total 970 Output Total 0 Balance 970 - Medications Medications: Current Medications Albuterol Sulfate (Albuterol 0.083% Inhal Jojo (2.5 Mg/3 Ml) Ud) 2.5 mg IH RQ4 [facility] Last Admin: 11/03/16 04:02 Dose: Not Given Amlodipine Besylate (Norvasc) 10 mg PO DAILY [facility] Last Admin: 11/03/16 10:00 Dose: 10 mg Aspirin (Ecotrin) 81 mg PO DAILY [facility] Last Admin: 11/03/16 10:00 Dose: 81 mg Calcium Acetate (Phoslo) 2,668 mg PO TIDCC [facility] Last Admin: 11/03/16 08:53 Dose: 2,668 mg Carvedilol (Coreg) 12.5 mg PO BID [facility] Last Admin: 11/03/16 10:01 Dose: 12.5 mg Epoetin Alec (Procrit) 10,000 unit SC MWF [facility] Last Admin: 11/02/16 08:18 Dose: 10,000 unit Ferrous Sulfate (Feosol) 325 mg PO DAILY [facility] Last Admin: 11/03/16 10:00 Dose: 325 mg Piperacillin Sod/Tazobactam Sod (Zosyn 2.25 Gm Iv Premix) 2.25 gm in 50 mls @ 100 mls/hr IVPB Q8H [facility] Last Admin: 11/03/16 03:04 Dose: 100 mls/hr Vancomycin HCl 1 gm/ Sodium (Chloride) 250 mls @ 166.7 mls/hr IVPB MWF [facility] Last Admin: 11/02/16 08:19 Dose: 166.7 mls/hr Insulin Glargine (Lantus) 20 unit SC HS [facility] Last Admin: 11/02/16 22:00 Dose: Not Given Insulin Human Regular (Novolin R) 0 unit SC ACHS [facility] PRN Reason: Protocol Last Admin: 11/03/16 08:53 Dose: 10 unit Losartan Potassium (Cozaar) 50 mg PO DAILY [facility] Last Admin: 11/03/16 10:00 Dose: 50 mg Morphine Sulfate (Morphine) 1 mg IVP Q6H PRN PRN Reason: Pain Last Admin: 11/03/16 03:03 Dose: 1 mg Rosuvastatin Calcium (Crestor) 2.5 mg PO HS [facility] Last Admin: 11/02/16 22:00 Dose: Not Given Vancomycin HCl (Vancocin (Oral Or Rectal Use)) 125 mg PO QID [facility] Last Admin: 11/02/16 22:00 Dose: Not Given - Labs Labs: 11/02/16 07:08 11/01/16 07:39 PT 11.5 SECONDS (9.7-12.2) 10/26/16 18:15 INR 1.0 10/26/16 18:15 APTT 27 SECONDS (21-34) 10/26/16 18:15 - Constitutional Appears: Well, Non-toxic, No Acute Distress - Neurological Exam Neurological Exam: Oriented x3 - Psychiatric Exam Psychiatric exam: Normal Affect, Normal Mood - Additional Findings Additional findings: DERMATOLOGIC: Right foot hallux is ischemic with dusky discoloration, subcutaneous blistering but no open lesion, no drainage present. Hyperpigmenation of lesser digits as well. Left hallux has mild hyperpigmentation VASCULAR: DP/PT pulses non palpable, skin is the right foot is slightly cool NEUROLOGIC: Gross sensation, motor function intact ORTHOPEDIC: Pain on palpation to the right forefoot Assessment and Plan - Assessment and Plan (Free Text) Assessment: 51 year old female with right foot ischemic hallux Plan: Patient seen and evaluated, d/w attending Dr. Aldrich Patient going for bypass on Saturday Will continue to monitor hallux, no dressing at this time Podiatry will continue to follow
[2016-11-03 11:18] LABS: HEMATOCRIT 27.1 % (34.0-47.0); MEAN CELL VOLUME 99.3 fL (81.0-99.0); MEAN CORPUSCULAR HEMOGLOBIN 32.6 pg (27.0-31.0); MEAN CORPUSCULAR HGB CONC 32.8 g/dL (33.0-37.0); MEAN PLATELET VOLUME 7.9 fL (7.2-11.7); RED CELL DISTRIBUTION WIDTH 18.6 % (11.5-14.5); WHITE BLOOD COUNT 13.6 K/uL (4.8-10.8)
[2016-11-03 11:19] LABS: GLUCOSE PERITONEAL FLUID 1342 mg/dL; TOTAL PROTEIN PERITONEAL FLUID <3.0 g/dL
[2016-11-03 11:26] LABS: POTASSIUM 3.8 mmol/L (3.6-5.2)
[2016-11-03 11:28] LABS: BILIRUBIN,TOTAL 0.5 mg/dL (0.2-1.3); PHOSPHOROUS 7.9 mg/dL (2.5-4.5); TOTAL PROTEIN 6.9 g/dL (6.3-8.3)
[2016-11-03 11:29] LABS: CALCIUM 8.6 mg/dl (8.6-10.4); MAGNESIUM 2.5 mg/dL (1.6-2.3)
--- NOTE | 2016-11-03 11:29 | CP.PCM.PN ---
Subjective - Date & Time of Evaluation Date of Evaluation: 11/03/16 Time of Evaluation: 11:28 - Subjective Subjective: Surgery: Dr. Clark Pt S&E. NAEO. No complaints. Plan is for angiography of LLE on saturday. Bypass to follow later in the week. d/w Dr Eduardo Dejesus PGY2 Objective - Vital Signs/Intake and Output Vital Signs (last 24 hours): Temp Pulse Resp BP Pulse Ox 98.5 F 81 20 171/86 H 98 11/03/16 09:43 11/03/16 09:43 11/03/16 09:43 11/03/16 10:01 11/03/16 09:43 Intake and Output: 11/03/16 11/03/16 06:59 18:59 Intake Total 970 Output Total 0 Balance 970 - Medications Medications: Current Medications Albuterol Sulfate (Albuterol 0.083% Inhal Jojo (2.5 Mg/3 Ml) Ud) 2.5 mg IH RQ4 [facility] Last Admin: 11/03/16 04:02 Dose: Not Given Amlodipine Besylate (Norvasc) 10 mg PO DAILY [facility] Last Admin: 11/03/16 10:00 Dose: 10 mg Aspirin (Ecotrin) 81 mg PO DAILY [facility] Last Admin: 11/03/16 10:00 Dose: 81 mg Calcium Acetate (Phoslo) 2,668 mg PO TIDCC [facility] Last Admin: 11/03/16 08:53 Dose: 2,668 mg Carvedilol (Coreg) 12.5 mg PO BID [facility] Last Admin: 11/03/16 10:01 Dose: 12.5 mg Epoetin Alec (Procrit) 10,000 unit SC MWF [facility] [place] Last Admin: 11/02/16 08:18 Dose: 10,000 unit Ferrous Sulfate (Feosol) 325 mg PO DAILY [facility] Last Admin: 11/03/16 10:00 Dose: 325 mg Piperacillin Sod/Tazobactam Sod (Zosyn 2.25 Gm Iv Premix) 2.25 gm in 50 mls @ 100 mls/hr IVPB Q8H [facility] Last Admin: 11/03/16 03:04 Dose: 100 mls/hr Vancomycin HCl 1 gm/ Sodium (Chloride) 250 mls @ 166.7 mls/hr IVPB MWF [facility] [place] Last Admin: 11/02/16 08:19 Dose: 166.7 mls/hr Insulin Glargine (Lantus) 20 unit SC HS [facility] [place] Last Admin: 11/02/16 22:00 Dose: Not Given Insulin Human Regular (Novolin R) 0 unit SC ACHS [facility] PRN Reason: Protocol Last Admin: 11/03/16 08:53 Dose: 10 unit Losartan Potassium (Cozaar) 50 mg PO DAILY [facility] [place] Last Admin: 11/03/16 10:00 Dose: 50 mg Morphine Sulfate (Morphine) 1 mg IVP Q6H PRN PRN Reason: Pain Last Admin: 11/03/16 03:03 Dose: 1 mg Rosuvastatin Calcium (Crestor) 2.5 mg PO HS [facility] Last Admin: 11/02/16 22:00 Dose: Not Given Vancomycin HCl (Vancocin (Oral Or Rectal Use)) 125 mg PO QID [facility] Last Admin: 11/02/16 22:00 Dose: Not Given - Labs Labs: 11/03/16 11:13 11/01/16 07:39 PT 11.5 SECONDS (9.7-12.2) 10/26/16 18:15 INR 1.0 10/26/16 18:15 APTT 27 SECONDS (21-34) 10/26/16 18:15
[2016-11-03] MEDS: Vancomycin 125 MG/5 ML SOLN (ORAL/RECTAL) PO SCH ×4 (12:49→21:40)
--- NOTE | 2016-11-03 19:11 | CP.PCM.PN ---
Subjective - Date & Time of Evaluation Date of Evaluation: 11/03/16 Time of Evaluation: 14:10 - Subjective Subjective: Subjective Pt with no cardiac events Physical Examination - Constitutional Appears: Older Than Stated Age, Chronically Ill - Head Exam Head Exam: ATRAUMATIC, NORMOCEPHALIC - Eye Exam Eye Exam: EOMI, Normal appearance Pupil Exam: NORMAL ACCOMODATION - ENT Exam ENT Exam: Mucous Membranes Moist - Respiratory Exam Respiratory Exam: Clear to Ausculation Bilateral. absent: Rales, Rhonchi, Wheezes - Cardiovascular Exam Cardiovascular Exam: REGULAR RHYTHM, +S1, +S2 - GI/Abdominal Exam GI & Abdominal Exam: Soft, Normal Bowel Sounds - Extremities Exam Extremities Exam: absent: Calf Tenderness, Normal Capillary Refill Additional comments: R toes dusky color - Neurological Exam Neurological Exam: Alert, Awake - Psychiatric Exam Psychiatric exam: Normal Affect, Normal Mood - Skin Skin Exam: Dry, Pallor, Warm Objective - Vital Signs/Intake and Output Vital Signs (last 24 hours): Temp Pulse Resp BP Pulse Ox 98.2 F 86 20 132/72 96 11/03/16 15:07 11/03/16 15:07 11/03/16 15:07 11/03/16 18:38 11/03/16 15:07 - Medications Medications: Current Medications Albuterol Sulfate (Albuterol 0.083% Inhal Jojo (2.5 Mg/3 Ml) Ud) 2.5 mg IH RQ4 [facility] Last Admin: 11/03/16 15:36 Dose: Not Given Amlodipine Besylate (Norvasc) 10 mg PO DAILY [facility] Last Admin: 11/03/16 10:00 Dose: 10 mg Aspirin (Ecotrin) 81 mg PO DAILY [facility] Last Admin: 11/03/16 10:00 Dose: 81 mg Calcium Acetate (Phoslo) 2,668 mg PO TIDCC [facility] Last Admin: 11/03/16 18:39 Dose: 2,668 mg Carvedilol (Coreg) 12.5 mg PO BID [facility] Last Admin: 11/03/16 18:38 Dose: 12.5 mg Epoetin Alec (Procrit) 10,000 unit SC MWF [facility] Last Admin: 11/02/16 08:18 Dose: 10,000 unit Ferrous Sulfate (Feosol) 325 mg PO DAILY [facility] Last Admin: 11/03/16 10:00 Dose: 325 mg Piperacillin Sod/Tazobactam Sod (Zosyn 2.25 Gm Iv Premix) 2.25 gm in 50 mls @ 100 mls/hr IVPB Q8H [facility] Last Admin: 11/03/16 12:48 Dose: 100 mls/hr Vancomycin HCl 1 gm/ Sodium (Chloride) 250 mls @ 166.7 mls/hr IVPB MWF [facility] Last Admin: 11/02/16 08:19 Dose: 166.7 mls/hr Insulin Glargine (Lantus) 20 unit SC [facility] Last Admin: 11/02/16 22:00 Dose: Not Given Insulin Human Regular (Novolin R) 0 unit SC ACHS [facility] PRN Reason: Protocol Last Admin: 11/03/16 18:42 Dose: Not Given Losartan Potassium (Cozaar) 50 mg PO DAILY [facility] Last Admin: 11/03/16 10:00 Dose: 50 mg Morphine Sulfate (Morphine) 1 mg IVP Q6H PRN PRN Reason: Pain Last Admin: 11/03/16 16:33 Dose: 1 mg Rosuvastatin Calcium (Crestor) 2.5 mg PO [facility] Last Admin: 11/02/16 22:00 Dose: Not Given Vancomycin HCl (Vancocin (Oral Or Rectal Use)) 125 mg PO QID [facility] Last Admin: 11/03/16 18:38 Dose: 125 mg - Labs Labs: 11/03/16 11:13 11/03/16 11:13 PT 11.5 SECONDS (9.7-12.2) 10/26/16 18:15 INR 1.0 10/26/16 18:15 APTT 27 SECONDS (21-34) 10/26/16 18:15 Assessment and Plan - Assessment and Plan (Free Text) Assessment: 51F, past smoker who quitted smoking last week, with Hx of PAD, HTN/HLD, DM2, ESRD on peritoneal HD, has ischemic Right foot with increasing pain. cardiology was consulted for cardiac risk assessment for a 2 step surgical procedures (1) angio to stent LLE; (2) RLE bypass surgery. Echo and stress test conducted. Preop cardiac risk assessment - Normal stress test and EF - Major Risk factors: IDDM, PAD, ESRD CV risk stratification - crestor 2.5 (very low dose crestor) - ASA - counseling program leader smoking cessation HTN - amlodipine 10, carvedilol 12.5 bid Leukocytosis at 20s. - pending PD fluid analysis vs cellulitis/osteomyelitis vs c.diff - vanco and zosyn - increased diarrhea, c.diff pending R leg ischemia - progressing Foot infection r/o osteomyelitis - from hallux to 3rd and 5th digit PAD - CTA abdomin and pelvis: bilateral diffuse arterial atherosclerotic disease; occlusion of bilateral SFA; heavy calcification of bilateral anterior and posterior tibial aa. - high likelyhood of CAD vein mapping of the bilateral LE to assess for possible graft - Due to type 4 aortic arch, bilateral lower extremity run offs not performed due to technical difficulty and pt's CKD. IDDM2 Lable sugar - due to infection and decreased kidney metabolism of insulun ESRD on PD Macrocytic anemia, chronic - pending B12, folate - defer to primary team for managing Allergy: shrimp DVT prophylaxis - heparin 5000 q8 Cardiac point of view (Normal EF and stress test) assessed as intermediate risk for Peripheral angiogram and intervention. Intermediate to high cardiac risk for Vascular bypass. If the benefit outweighs the risk please proceed with the needed therapeutic procedures/surgery Thank you
--- NOTE | 2016-11-03 19:43 | CP.PCM.PN ---
Subjective - Date & Time of Evaluation Date of Evaluation: 11/03/16 Time of Evaluation: 19:43 - Subjective Subjective: Patient blood sugar is still elevated. Currently patient is somewhat in pain in the legs. Receiving morphine overdose. Diarrhea present. No chest pain. Objective - Vital Signs/Intake and Output Vital Signs (last 24 hours): Temp Pulse Resp BP Pulse Ox 98.2 F 86 20 132/72 96 11/03/16 15:07 11/03/16 15:07 11/03/16 15:07 11/03/16 18:38 11/03/16 15:07 Chest good air entry. Regular heart sound. Abdomen distention noted. Leg swelling is negative, but ischemic changes noted - Medications Medications: Current Medications Albuterol Sulfate (Albuterol 0.083% Inhal Jojo (2.5 Mg/3 Ml) Ud) 2.5 mg IH RQ4 [facility] Last Admin: 11/03/16 15:36 Dose: Not Given Amlodipine Besylate (Norvasc) 10 mg PO DAILY [facility] Last Admin: 11/03/16 10:00 Dose: 10 mg Aspirin (Ecotrin) 81 mg PO DAILY [facility] Last Admin: 11/03/16 10:00 Dose: 81 mg Calcium Acetate (Phoslo) 2,668 mg PO TIDCC [facility] Last Admin: 11/03/16 18:39 Dose: 2,668 mg Carvedilol (Coreg) 12.5 mg PO BID [facility] Last Admin: 11/03/16 18:38 Dose: 12.5 mg Epoetin Alec (Procrit) 10,000 unit SC MWF [facility] Last Admin: 11/02/16 08:18 Dose: 10,000 unit Ferrous Sulfate (Feosol) 325 mg PO DAILY [facility] Last Admin: 11/03/16 10:00 Dose: 325 mg Piperacillin Sod/Tazobactam Sod (Zosyn 2.25 Gm Iv Premix) 2.25 gm in 50 mls @ 100 mls/hr IVPB Q8H [facility] Last Admin: 11/03/16 12:48 Dose: 100 mls/hr Vancomycin HCl 1 gm/ Sodium (Chloride) 250 mls @ 166.7 mls/hr IVPB MWF [facility] Last Admin: 11/02/16 08:19 Dose: 166.7 mls/hr Insulin Glargine (Lantus) 20 unit SC HS [facility] Last Admin: 11/02/16 22:00 Dose: Not Given Insulin Human Regular (Novolin R) 0 unit SC ACHS [facility] PRN Reason: Protocol Last Admin: 11/03/16 18:42 Dose: Not Given Losartan Potassium (Cozaar) 50 mg PO DAILY [facility] Last Admin: 11/03/16 10:00 Dose: 50 mg Morphine Sulfate (Morphine) 1 mg IVP Q6H PRN PRN Reason: Pain Last Admin: 11/03/16 16:33 Dose: 1 mg Rosuvastatin Calcium (Crestor) 2.5 mg PO HS [facility] Last Admin: 11/02/16 22:00 Dose: Not Given Vancomycin HCl (Vancocin (Oral Or Rectal Use)) 125 mg PO QID [facility] Last Admin: 11/03/16 18:38 Dose: 125 mg - Labs Labs: 11/03/16 11:13 11/03/16 11:13 PT 11.5 SECONDS (9.7-12.2) 10/26/16 18:15 INR 1.0 10/26/16 18:15 APTT 27 SECONDS (21-34) 10/26/16 18:15 Assessment and Plan (1) Foot infection Assessment & Plan: Ischemic leg. Gangrenous changes. Patient is scheduled to have the surgical intervention stent and possibly bypass. Glucose control and blood sugar control will follow the patient Status: Acute (2) Lower limb ischemia Status: Acute (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
[2016-11-03] MEDS: Rosuvastatin Calcium 2.5 mg Tab PO SCH (21:39)
[2016-11-03] MEDS: (Lantus) Insulin Glargine, Recombinant SC SCH (21:51)
[2016-11-04] MEDS: Piperacill/Tazo 2.25gm in Dex 2.25 GM/50 ML BAG IVPB SCH ×2 (03:10→21:23)
[2016-11-04] MEDS: Albuterol 0.083% Inhal Sol (2.5 mg/3 mL) UD IH SCH ×6 (03:28→23:56)
--- NOTE | 2016-11-04 06:33 | CP.PCM.PN ---
Subjective - Date & Time of Evaluation Date of Evaluation: 11/04/16 Time of Evaluation: 06:32 - Subjective Subjective: Surgery: Dr. Clark Pt S&E. NAEO. No complaints. Plan is for angiography tomorrow Bypass to follow later in the week. NPO at midnight d/w Dr Eduardo Langforditis PGY2 Objective - Vital Signs/Intake and Output Vital Signs (last 24 hours): Temp Pulse Resp BP Pulse Ox 98 F 86 20 171/74 H 96 11/04/16 00:25 11/04/16 00:25 11/04/16 00:25 11/04/16 00:25 11/04/16 00:25 - Medications Medications: Current Medications Albuterol Sulfate (Albuterol 0.083% Inhal Jojo (2.5 Mg/3 Ml) Ud) 2.5 mg IH RQ4 [facility] Last Admin: 11/04/16 03:28 Dose: Not Given Amlodipine Besylate (Norvasc) 10 mg PO DAILY [facility] Last Admin: 11/03/16 10:00 Dose: 10 mg Aspirin (Ecotrin) 81 mg PO DAILY [facility] Last Admin: 11/03/16 10:00 Dose: 81 mg Calcium Acetate (Phoslo) 2,668 mg PO TIDCC [facility] Last Admin: 11/03/16 18:39 Dose: 2,668 mg Carvedilol (Coreg) 12.5 mg PO BID [facility] Last Admin: 11/03/16 18:38 Dose: 12.5 mg Epoetin Alec (Procrit) 10,000 unit SC MWF [facility] Last Admin: 11/02/16 08:18 Dose: 10,000 unit Famotidine (Pepcid) 20 mg IVP DAILY [facility] Ferrous Sulfate (Feosol) 325 mg PO DAILY [facility] Last Admin: 11/03/16 10:00 Dose: 325 mg Piperacillin Sod/Tazobactam Sod (Zosyn 2.25 Gm Iv Premix) 2.25 gm in 50 mls @ 100 mls/hr IVPB Q8H [facility] Last Admin: 11/04/16 03:10 Dose: 100 mls/hr Vancomycin HCl 1 gm/ Sodium (Chloride) 250 mls @ 166.7 mls/hr IVPB MWF [facility] Last Admin: 11/02/16 08:19 Dose: 166.7 mls/hr Insulin Glargine (Lantus) 20 unit SC HS [facility] Last Admin: 11/03/16 21:51 Dose: 20 units Insulin Human Regular (Novolin R) 0 unit SC ACHS [facility] PRN Reason: Protocol Last Admin: 11/03/16 21:50 Dose: Not Given Losartan Potassium (Cozaar) 50 mg PO DAILY [facility] Last Admin: 11/03/16 10:00 Dose: 50 mg Morphine Sulfate (Morphine) 1 mg IVP Q6H PRN PRN Reason: Pain Last Admin: 11/03/16 21:40 Dose: 1 mg Rosuvastatin Calcium (Crestor) 2.5 mg PO HS [facility] Last Admin: 11/03/16 21:39 Dose: 2.5 mg Vancomycin HCl (Vancocin (Oral Or Rectal Use)) 125 mg PO QID [facility] Last Admin: 11/03/16 21:40 Dose: 125 mg - Labs Labs: 11/03/16 11:13 11/03/16 11:13 PT 11.5 SECONDS (9.7-12.2) 10/26/16 18:15 INR 1.0 10/26/16 18:15 APTT 27 SECONDS (21-34) 10/26/16 18:15
[2016-11-04] MEDS: (Novolin R) Insulin Human Regular 100 units/ml vial SC SCH ×4 (08:01→22:28)
--- NOTE | 2016-11-04 09:33 | CP.PCM.PN ---
Subjective - Date & Time of Evaluation Date of Evaluation: 11/04/16 Time of Evaluation: 09:32 - Subjective Subjective: Patient seen and evaluated this morning at bedside. Patient reports drainage from the toe this morning. She reports feeling nausea as well. There is small blister formation just proximal to the hallux MPJ. Objective - Vital Signs/Intake and Output Vital Signs (last 24 hours): Temp Pulse Resp BP Pulse Ox 98.6 F 75 20 166/80 H 99 11/04/16 08:22 11/04/16 08:22 11/04/16 08:22 11/04/16 08:22 11/04/16 08:22 - Medications Medications: Current Medications Albuterol Sulfate (Albuterol 0.083% Inhal Jooj (2.5 Mg/3 Ml) Ud) 2.5 mg IH RQ4 [facility] Last Admin: 11/04/16 08:33 Dose: Not Given Amlodipine Besylate (Norvasc) 10 mg PO DAILY [facility] Last Admin: 11/03/16 10:00 Dose: 10 mg Aspirin (Ecotrin) 81 mg PO DAILY [facility] Last Admin: 11/03/16 10:00 Dose: 81 mg Calcium Acetate (Phoslo) 2,668 mg PO TIDCC [facility] Last Admin: 11/04/16 08:01 Dose: 2,668 mg Carvedilol (Coreg) 12.5 mg PO BID [facility] Last Admin: 11/03/16 18:38 Dose: 12.5 mg Epoetin Alec (Procrit) 10,[address] [facility] Last Admin: 11/02/16 08:18 Dose: 10,000 unit Famotidine (Pepcid) 20 mg IVP DAILY [facility] Ferrous Sulfate (Feosol) 325 mg PO DAILY [facility] Last Admin: 11/03/16 10:00 Dose: 325 mg Piperacillin Sod/Tazobactam Sod (Zosyn 2.25 Gm Iv Premix) 2.25 gm in 50 mls @ 100 mls/hr IVPB Q8H [facility] Last Admin: 11/04/16 03:10 Dose: 100 mls/hr Vancomycin HCl 1 gm/ Sodium (Chloride) 250 mls @ 166.7 mls/hr IVPB MWF [facility] Last Admin: 11/02/16 08:19 Dose: 166.7 mls/hr Insulin Glargine (Lantus) 20 unit SC [facility] Last Admin: 11/03/16 21:51 Dose: 20 units Insulin Human Regular (Novolin R) 0 unit SC ACHS [facility] PRN Reason: Protocol Last Admin: 11/04/16 08:01 Dose: 6 unit Losartan Potassium (Cozaar) 50 mg PO DAILY [facility] Last Admin: 11/03/16 10:00 Dose: 50 mg Morphine Sulfate (Morphine) 1 mg IVP Q6H PRN PRN Reason: Pain Last Admin: 11/03/16 21:40 Dose: 1 mg Rosuvastatin Calcium (Crestor) 2.5 mg PO HS [facility] Last Admin: 11/03/16 21:39 Dose: 2.5 mg Vancomycin HCl (Vancocin (Oral Or Rectal Use)) 125 mg PO QID [facility] Last Admin: 11/03/16 21:40 Dose: 125 mg - Labs Labs: 11/03/16 11:13 11/03/16 11:13 PT 11.5 SECONDS (9.7-12.2) 10/26/16 18:15 INR 1.0 10/26/16 18:15 APTT 27 SECONDS (21-34) 10/26/16 18:15 - Additional Findings Additional findings: DERMATOLOGIC: Right foot hallux is ischemic with dusky discoloration, subcutaneous blistering , moderate drainage from first interspace with small opening in the skin. Hyperpigmenation of lesser digits as well. Left hallux has mild hyperpigmentation VASCULAR: DP/PT pulses non palpable, skin is the right foot is slightly cool NEUROLOGIC: Gross sensation, motor function intact ORTHOPEDIC: Pain on palpation to the right forefoot Assessment and Plan - Assessment and Plan (Free Text) Assessment: 51 year old female with right foot ischemic hallux Plan: Patient seen and evaluated, d/w attending Dr. Aldrich New drainage present today, applied very light gauze dressing, no compression. Patient for angio tomorrow morning, NPO after midnight tonight, bypass later in the week Will continue to monitor toe Podiatry will continue to follow
[2016-11-04] MEDS: Vancomycin 125 MG/5 ML SOLN (ORAL/RECTAL) PO SCH ×4 (10:13→22:31)
--- NOTE | 2016-11-04 16:36 | CP.PCM.PN ---
Subjective - Date & Time of Evaluation Date of Evaluation: 11/04/16 Time of Evaluation: 08:00 - Subjective Subjective: c/o poin right foot prognosis poor may need amputation if re-vasc not feasible Objective - Vital Signs/Intake and Output Vital Signs (last 24 hours): Temp Pulse Resp BP Pulse Ox 98.6 F 89 20 166/80 H 100 11/04/16 08:22 11/04/16 11:23 11/04/16 08:22 11/04/16 10:13 11/04/16 11:23 - Medications Medications: Current Medications Albuterol Sulfate (Albuterol 0.083% Inhal Jojo (2.5 Mg/3 Ml) Ud) 2.5 mg IH RQ4 [facility] Last Admin: 11/04/16 16:06 Dose: Not Given Amlodipine Besylate (Norvasc) 10 mg PO DAILY [facility] Last Admin: 11/04/16 10:13 Dose: 10 mg Aspirin (Ecotrin) 81 mg PO DAILY [facility] Last Admin: 11/04/16 10:12 Dose: 81 mg Calcium Acetate (Phoslo) 2,668 mg PO TIDCC [facility] Last Admin: 11/04/16 13:31 Dose: 2,668 mg Carvedilol (Coreg) 12.5 mg PO BID [facility] Last Admin: 11/04/16 10:13 Dose: 12.5 mg Diphenhydramine HCl (Benadryl) 50 mg PO ONCE ONE Stop: 11/05/16 09:01 Epoetin Alec (Procrit) 10,000 unit [facility] Last Admin: 11/02/16 08:18 Dose: 10,000 unit Famotidine (Pepcid) 20 mg IVP DAILY [facility] Last Admin: 11/04/16 10:12 Dose: 20 mg Ferrous Sulfate (Feosol) 325 mg PO DAILY [facility] Last Admin: 11/04/16 10:13 Dose: 325 mg Piperacillin Sod/Tazobactam Sod (Zosyn 2.25 Gm Iv Premix) 2.25 gm in 50 mls @ 100 mls/hr IVPB Q8H [facility] Last Admin: 11/04/16 03:10 Dose: 100 mls/hr Vancomycin HCl 1 gm/ Sodium (Chloride) 250 mls @ 166.7 mls/hr IVPB MWF [facility] Last Admin: 11/02/16 08:19 Dose: 166.7 mls/hr Insulin Glargine (Lantus) 20 unit SC HS [facility] Last Admin: 11/03/16 21:51 Dose: 20 units Insulin Human Regular (Novolin R) 0 unit SC ACHS [facility] PRN Reason: Protocol Last Admin: 11/04/16 13:32 Dose: Not Given Losartan Potassium (Cozaar) 50 mg PO DAILY [facility] Last Admin: 11/04/16 10:13 Dose: 50 mg Morphine Sulfate (Morphine) 1 mg SC Q6H PRN PRN Reason: Pain Last Admin: 11/04/16 16:03 Dose: 1 mg Prednisone (Prednisone Tab) 50 mg PO TID [facility] Rosuvastatin Calcium (Crestor) 2.5 mg PO HS [facility] Last Admin: 11/03/16 21:39 Dose: 2.5 mg Vancomycin HCl (Vancocin (Oral Or Rectal Use)) 125 mg PO QID [facility] Last Admin: 11/04/16 16:10 Dose: 125 mg - Labs Labs: 11/03/16 11:13 11/03/16 11:13 PT 11.5 SECONDS (9.7-12.2) 10/26/16 18:15 INR 1.0 10/26/16 18:15 APTT 27 SECONDS (21-34) 10/26/16 18:15 Assessment and Plan (1) Foot infection Status: Acute (2) Lower limb ischemia Status: Acute (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
--- NOTE | 2016-11-04 21:24 | CP.PCM.PN ---
Subjective - Date & Time of Evaluation Date of Evaluation: 11/04/16 Time of Evaluation: 11:10 - Subjective Subjective: Patient without cardiac events No chest pain and dyspnea Physical Examination - Constitutional Appears: Older Than Stated Age, Chronically Ill - Head Exam Head Exam: ATRAUMATIC, NORMOCEPHALIC - Eye Exam Eye Exam: EOMI, Normal appearance Pupil Exam: NORMAL ACCOMODATION - ENT Exam ENT Exam: Mucous Membranes Moist - Respiratory Exam Respiratory Exam: Clear to Ausculation Bilateral. absent: Rales, Rhonchi, Wheezes - Cardiovascular Exam Cardiovascular Exam: REGULAR RHYTHM, +S1, +S2 - GI/Abdominal Exam GI & Abdominal Exam: Soft, Normal Bowel Sounds - Extremities Exam Extremities Exam: absent: Calf Tenderness, Normal Capillary Refill Additional comments: R toes dusky color - Neurological Exam Neurological Exam: Alert, Awake - Psychiatric Exam Psychiatric exam: Normal Affect, Normal Mood - Skin Skin Exam: Dry, Pallor, Warm Objective - Vital Signs/Intake and Output Vital Signs (last 24 hours): Temp Pulse Resp BP Pulse Ox 98.3 F 88 20 145/77 95 11/04/16 18:00 11/04/16 18:53 11/04/16 18:00 11/04/16 18:53 11/04/16 18:00 - Medications Medications: Current Medications Albuterol Sulfate (Albuterol 0.083% Inhal Jojo (2.5 Mg/3 Ml) Ud) 2.5 mg IH RQ4 [facility] Last Admin: 11/04/16 16:06 Dose: Not Given Amlodipine Besylate (Norvasc) 10 mg PO DAILY [facility] Last Admin: 11/04/16 10:13 Dose: 10 mg Aspirin (Ecotrin) 81 mg PO DAILY [facility] Last Admin: 11/04/16 10:12 Dose: 81 mg Calcium Acetate (Phoslo) 2,668 mg PO TIDCC [facility] Last Admin: 11/04/16 17:30 Dose: 2,668 mg Carvedilol (Coreg) 12.5 mg PO BID [facility] Last Admin: 11/04/16 17:29 Dose: 12.5 mg Diphenhydramine HCl (Benadryl) 50 mg PO ONCE ONE Stop: 11/05/16 09:01 Epoetin Alec (Procrit) 10,000 unit SC MWF [facility] Last Admin: 11/02/16 08:18 Dose: 10,000 unit Famotidine (Pepcid) 20 mg IVP DAILY [facility] Last Admin: 11/04/16 10:12 Dose: 20 mg Ferrous Sulfate (Feosol) 325 mg PO DAILY [facility] Last Admin: 11/04/16 10:13 Dose: 325 mg Piperacillin Sod/Tazobactam Sod (Zosyn 2.25 Gm Iv Premix) 2.25 gm in 50 mls @ 100 mls/hr IVPB Q8H [facility] Last Admin: 11/04/16 03:10 Dose: 100 mls/hr Vancomycin HCl 1 gm/ Sodium (Chloride) 250 mls @ 166.7 mls/hr IVPB MWF [facility] Last Admin: 11/02/16 08:19 Dose: 166.7 mls/hr Insulin Glargine (Lantus) 20 unit SC [facility] Last Admin: 11/03/16 21:51 Dose: 20 units Insulin Human Regular (Novolin R) 0 unit SC ACHS [facility] PRN Reason: Protocol Last Admin: 11/04/16 17:30 Dose: Not Given Losartan Potassium (Cozaar) 50 mg PO DAILY [facility] Last Admin: 11/04/16 10:13 Dose: 50 mg Morphine Sulfate (Morphine) 1 mg SC Q6H PRN PRN Reason: Pain Last Admin: 11/04/16 16:03 Dose: 1 mg Prednisone (Prednisone Tab) 50 mg PO TID [facility] Rosuvastatin Calcium (Crestor) 2.5 mg PO HS [facility] Last Admin: 11/03/16 21:39 Dose: 2.5 mg Vancomycin HCl (Vancocin (Oral Or Rectal Use)) 125 mg PO QID [facility] Last Admin: 11/04/16 19:49 Dose: 125 mg - Labs Labs: 11/03/16 11:13 11/03/16 11:13 PT 11.5 SECONDS (9.7-12.2) 10/26/16 18:15 INR 1.0 10/26/16 18:15 APTT 27 SECONDS (21-34) 10/26/16 18:15 Assessment and Plan - Assessment and Plan (Free Text) Assessment: 51F, past smoker who quitted smoking last week, with Hx of PAD, HTN/HLD, DM2, ESRD on peritoneal HD, has ischemic Right foot with increasing pain. cardiology was consulted for cardiac risk assessment for a 2 step surgical procedures (1) angio to stent LLE; (2) RLE bypass surgery. Echo and stress test conducted. Preop cardiac risk assessment - Normal stress test and EF - Major Risk factors: IDDM, PAD, ESRD CV risk stratification - crestor 2.5 (very low dose crestor) - ASA - addiction counselor smoking cessation HTN - amlodipine 10, carvedilol 12.5 bid Leukocytosis at 20s. - pending PD fluid analysis vs cellulitis/osteomyelitis vs c.diff - vanco and zosyn - increased diarrhea, c.diff pending R leg ischemia - progressing Foot infection r/o osteomyelitis - from hallux to 3rd and 5th digit PAD - CTA abdomin and pelvis: bilateral diffuse arterial atherosclerotic disease; occlusion of bilateral SFA; heavy calcification of bilateral anterior and posterior tibial aa. - high likelyhood of CAD vein mapping of the bilateral LE to assess for possible graft - Due to type 4 aortic arch, bilateral lower extremity run offs not performed due to technical difficulty and pt's CKD. IDDM2 Lable sugar - due to infection and decreased kidney metabolism of insulun ESRD on PD Macrocytic anemia, chronic - pending B12, folate - defer to primary team for managing Allergy: shrimp DVT prophylaxis - heparin 5000 q8
[2016-11-04] MEDS: Rosuvastatin Calcium 2.5 mg Tab PO SCH (22:32)
[2016-11-04] MEDS: (Lantus) Insulin Glargine, Recombinant SC SCH (22:32)
--- NOTE | 2016-11-04 22:43 | CARD ---
APPROVED REPORT EXAM: Two-dimensional and M-mode echocardiogram with Doppler and color Doppler. Other Information Quality : GoodRhythm : NSR INDICATION End Stage of Renal Diease- Dialysis RISK FACTORS Hypertension Hyperlipidemia M-Mode DIMENSIONS RVDd2.93 (2.1-3.2cm)Left Atrium (MM)3.51 (2.5-4.0cm) IVSd1.17 (0.7-1.1cm)Aortic Root2.15 (2.2-3.7cm) LVDd4.59 (4.0-5.6cm)Aortic Cusp Exc.1.72 (1.5-2.0cm) PWd1.24 (0.7-1.1cm)FS (%) 33 % LVDs3.06 (2.0-3.8cm)LVEF (%)62 (>50%) Mitral Valve MV E Hskmeque369.4cm/sMV A Ekqtlozr53.4cm/sE/A ratio1.8 TDI E/Lateral E'0.0E/Medial E'0.0 Tricuspid Valve TR Peak [id number]/sTR Peak Gr.[id number] LEFT VENTRICLE The left ventricle is normal size. There is mild to moderate concentric left ventricular hypertrophy. The left ventricular function is normal. The left ventricular ejection fraction is within the normal range. There is normal LV segmental wall motion. Transmitral Doppler flow pattern is Grade II-pseudonormal filling dynamics. THIS MAY BE OVER ESTIMATED GIVEN MR RIGHT VENTRICLE The right ventricle is normal size. There is normal right ventricular wall thickness. The right ventricular systolic function is normal. ATRIA The left atrium size is normal. The right atrium size is normal. The interatrial septum is intact with no evidence for an atrial septal defect. AORTIC VALVE The aortic valve is mildly sclerotic. No aortic regurgitation is present. There is no aortic valvular stenosis. There is no aortic valvular vegetation. MITRAL VALVE The mitral valve is mildly thickened. There is no evidence of mitral valve prolapse. There is no mitral valve stenosis. Mitral regurgitation appears mild to moderate. However doppler reveals a holosystolic jet with very elevated velocity, indicative of possible severe MR. If clinically indicated would consider alternate method of evaluating MR. TRICUSPID VALVE The tricuspid valve is normal in structure. There is moderate to severe tricuspid regurgitation. There is moderate pulmonary hypertension. PAP = 50-55 RAP = 5 There is no tricuspid valve prolapse or vegetation. There is no tricuspid valve stenosis. PULMONIC VALVE The pulmonary valve is normal in structure. There is mild pulmonic valvular regurgitation. There is no pulmonic valvular stenosis. GREAT VESSELS The aortic root is normal in size. The pulmonary artery is normal. The IVC is normal in size and collapses >50% with inspiration. PERICARDIAL EFFUSION There is no pericardial effusion.
[2016-11-05] MEDS: Piperacill/Tazo 2.25gm in Dex 2.25 GM/50 ML BAG IVPB SCH ×3 (03:15→19:27)
[2016-11-05] MEDS: Albuterol 0.083% Inhal Sol (2.5 mg/3 mL) UD IH SCH ×2 (03:22→08:40)
[2016-11-05] MEDS: (Novolin R) Insulin Human Regular 100 units/ml vial SC SCH ×4 (07:55→22:01)
[2016-11-05] MEDS: EPOETIN ALFA 10,000 UNIT/ML ML SC SCH (09:08)
[2016-11-05] MEDS: Vancomycin 125 MG/5 ML SOLN (ORAL/RECTAL) PO SCH ×3 (09:10→19:26)
--- NOTE | 2016-11-05 11:31 | CP.PCM.PN ---
Subjective - Date & Time of Evaluation Date of Evaluation: 11/05/16 Time of Evaluation: 11:28 - Subjective Subjective: PD going well- fluid clear BP better controlled For LE angiogram today before consideration of LE bypass Toe #1 right with same ischemia Still with diarhhea No SOB, f, c, CPs, HAs Objective - Vital Signs/Intake and Output Vital Signs (last 24 hours): Temp Pulse Resp BP Pulse Ox 98 F 87 20 157/83 H 100 11/05/16 08:24 11/05/16 08:24 11/05/16 08:24 11/05/16 09:08 11/05/16 08:24 - Medications Medications: Current Medications Amlodipine Besylate (Norvasc) 10 mg PO DAILY [facility] Last Admin: 11/05/16 09:08 Dose: 10 mg Aspirin (Ecotrin) 81 mg PO DAILY [facility] Last Admin: 11/05/16 09:08 Dose: 81 mg Calcium Acetate (Phoslo) 2,668 mg PO TIDCC [facility] Last Admin: 11/05/16 07:58 Dose: Not Given Carvedilol (Coreg) 12.5 mg PO BID [facility] Last Admin: 11/05/16 09:08 Dose: 12.5 mg Epoetin Alec (Procrit) 10,000 unit SC MWF [facility] Last Admin: 11/05/16 09:08 Dose: 10,000 unit Famotidine (Pepcid) 20 mg IVP DAILY [facility] Last Admin: 11/05/16 09:15 Dose: 20 mg Ferrous Sulfate (Feosol) 325 mg PO DAILY [facility] Last Admin: 11/05/16 09:09 Dose: 325 mg Piperacillin Sod/Tazobactam Sod (Zosyn 2.25 Gm Iv Premix) 2.25 gm in 50 mls @ 100 mls/hr IVPB Q8H [facility] Last Admin: 11/05/16 10:57 Dose: 100 mls/hr Vancomycin HCl 1 gm/ Sodium (Chloride) 250 mls @ 166.7 mls/hr IVPB MWF [facility] Last Admin: 11/05/16 09:09 Dose: 166.7 mls/hr Insulin Glargine (Lantus) 20 unit SC HS [facility] Last Admin: 11/04/16 22:32 Dose: 20 units Insulin Human Regular (Novolin R) 0 unit SC ACHS [facility] PRN Reason: Protocol Last Admin: 11/05/16 07:55 Dose: 12 unit Losartan Potassium (Cozaar) 50 mg PO DAILY [facility] Last Admin: 11/05/16 09:08 Dose: 50 mg Morphine Sulfate (Morphine) 1 mg SC Q6H PRN PRN Reason: Pain Last Admin: 11/04/16 16:03 Dose: 1 mg Prednisone (Prednisone Tab) 50 mg PO TID [facility] Last Admin: 11/05/16 09:07 Dose: 50 mg Rosuvastatin Calcium (Crestor) 2.5 mg PO HS [facility] Last Admin: 11/04/16 22:32 Dose: Not Given Vancomycin HCl (Vancocin (Oral Or Rectal Use)) 125 mg PO QID [facility] Last Admin: 11/05/16 09:10 Dose: Not Given - Labs Labs: 11/03/16 11:13 11/03/16 11:13 PT 11.5 SECONDS (9.7-12.2) 10/26/16 18:15 INR 1.0 10/26/16 18:15 APTT 27 SECONDS (21-34) 10/26/16 18:15 - Constitutional Appears: No Acute Distress, Chronically Ill - Head Exam Head Exam: ATRAUMATIC, NORMAL INSPECTION - Eye Exam Eye Exam: EOMI, Normal appearance - Neck Exam Neck Exam: Normal Inspection. absent: Tenderness - Respiratory Exam Respiratory Exam: Clear to Ausculation Bilateral, NORMAL BREATHING PATTERN - Cardiovascular Exam Cardiovascular Exam: REGULAR RHYTHM, +S1 - GI/Abdominal Exam GI & Abdominal Exam: Soft. absent: Tenderness - Extremities Exam Extremities Exam: Joint Swelling, Tenderness - Neurological Exam Neurological Exam: Alert, CN II-XII Intact - Skin Skin Exam: Dry, Warm Assessment and Plan (1) Type 2 diabetes mellitus with diabetic nephropathy Status: Acute (2) Chronic anemia Status: Acute (3) Foot infection Status: Acute (4) Lower limb ischemia Status: Acute (5) ESRD on peritoneal dialysis Status: Acute (6) Hypertension Status: Acute - Assessment and Plan (Free Text) Plan: Repeat chemistries repeat c.diff LE angio pending Same BP meds Same PD
[2016-11-05] MEDS ORDERED: Nitroglycerin 50mg in D5W 50 MG/250 ML BOTTLE IV ONE (12:39)
[2016-11-05] MEDS ORDERED: Iodixanol 320 MG/ML 200 ML BOTTLE IV ONE (12:40)
[2016-11-05] MEDS ORDERED: (Novolin R) Insulin Human Regular 100 units/ml vial ONE (12:48)
[2016-11-05] MEDS ORDERED: Propofol 10 mg/ml Inj (20 ML) ONE ×2 (13:04→13:05)
[2016-11-05] MEDS ORDERED: Midazolam 2 MG/2 ML VIAL ONE (13:06)
--- NOTE | 2016-11-05 14:36 | PCM.SURG1 ---
Surgeon's Initial Post Op Note - Surgeon's Notes Surgeon: Dr Clark Title Clerk Automobile: Dr Lopez PGY2 Type of Anesthesia: General IV Pre-Operative Diagnosis: bilateral limb ischemia Operative Findings: see report Post-Operative Diagnosis: left common illiac stenosis. bilateral SFA occlusions with above knee reconstitution of femoral artery w/ primary runoff to anterior tibial artery distally Operation Performed: 1. aorto-femoral angiogram. 2. selective catheterization of right common femoral artery. 3. balloon stenting of left common illiac artery Specimen/Specimens Removed: none Estimated Blood Loss: EBL {In ML}: 50 Blood Products Given: N/A Drains Used: No Drains Post-Op Condition: Good Date of Surgery/Procedure: 11/05/16 Time of Surgery/Procedure: 14:36
--- NOTE | 2016-11-05 17:36 | VAS ---
DATE: 11/05/2016 PREOPERATIVE DIAGNOSIS: Gangrene both feet. PROCEDURE CARRIED OUT: Aortofemoral angiogram via left groin with selective catheterization of right femoral artery, balloon angioplasty and stenting using a 7 mm balloon expandable stent in the right common iliac artery. PROCEDURE: The patient was given local anesthesia, intravenous sedation. Using ultrasound guidance, the left common femoral artery was punctured. Under fluoroscopic control, guidewire was advanced to the level of the renal arteries. The Omniflush catheter was positioned here near overlapping films were taken to the level of the renal arteries down. OPERATIVE FINDINGS: The aorta and renal arteries are free of significant occlusive disease. The lef t common iliac artery had approximately 60% stenosis. The left external common femoral and profunda femoris arteries had no significant stenosis. The left superficial femoral artery was occluded at th e origin and reconstituted above the knee at the level above James's canal. Below this, there was a t least 1-vessel runoff via the anterior tibial, but detailed pictures could not be obtained. On the right side the internal, external and common femoral as well as profunda femoris arteries are widely patent, superficial femoral artery was occluded and reconstituted at the level above the knee with that primary runoff being the anterior tibial artery. Again due to timing, location and dye we could not obtain better pictures below the trifurcation. Subsequent to this, a stiff-angled guidewire was advanced over the aortic bifurcation and the catheter was positioned in the distal femoral artery. At this time, we attempted to place a 7-[place] sheath over this to attempt crossing the lesion. Due to a high-grade stenosis of 60%, not as well seen on the x-rays, we were unable to advance a 7-[place] sheath beyond this. Eventually we did but we were unable to advance the 7-[place] sheath into the r ight common iliac artery for a significant length; thus, we abandoned this. We then dilated the left common iliac artery stenosis with a 6 mm balloon and then subsequently deployed a 7 mm stent here wh ich was a balloon expandable stent. The completion pictures were excellent, showed preservation of f low into the internal as well as good preservation of the aortic bifurcation. No intervention was un dertaken on the right side, this patient will be scheduled to undergo bypass on the right and subsequ ently left leg in the near future. A Perclose device was deployed in the left groin. Harman Clark Jr., MD cc:Rod Lord MD 56 TT: 11/05/2016 17:35:44 Confirmation # [id number] Dictation # [id number]
--- NOTE | 2016-11-05 19:36 | CP.PCM.PN ---
Subjective - Date & Time of Evaluation Date of Evaluation: 11/05/16 Time of Evaluation: 19:37 - Subjective Subjective: Patient this morning underwent a procedure, stent was done. I spoke to the vascular surgeon. Patient is complaining of increasing pain in the leg. is somewhat upset. Right foot great toe gangrene is noted Dietary also present. Currently on antibiotic. Seen by ID specialist Objective - Vital Signs/Intake and Output Vital Signs (last 24 hours): Temp Pulse Resp BP Pulse Ox 97.6 F 81 20 176/82 H 96 11/05/16 15:37 11/05/16 15:37 11/05/16 15:37 11/05/16 19:26 11/05/16 15:37 Patient is not in any distress. Elevated blood sugar and blood pressure noted. Patient is currently receiving peritoneal dialysis at nighttime. Day blood sugar is somewhat controlled and at night. Chest good air entry bilaterally regular heart sound. Abdomen distention noted. Secondary to peritoneal dialysis. Intake and Output: 11/05/16 11/06/16 18:59 06:59 Intake Total 0 Balance 0 - Medications Medications: Current Medications Amlodipine Besylate (Norvasc) 10 mg PO DAILY [facility] Last Admin: 11/05/16 09:08 Dose: 10 mg Aspirin (Ecotrin) 81 mg PO DAILY [facility] Last Admin: 11/05/16 09:08 Dose: 81 mg Calcium Acetate (Phoslo) 2,668 mg PO TIDCC [facility] Last Admin: 11/05/16 19:27 Dose: 2,668 mg Carvedilol (Coreg) 12.5 mg PO BID [facility] Last Admin: 11/05/16 19:26 Dose: 12.5 mg Epoetin Alec (Procrit) 10,000 unit SC MWF [facility] Last Admin: 11/05/16 09:08 Dose: 10,000 unit Ferrous Sulfate (Feosol) 325 mg PO DAILY [facility] Last Admin: 11/05/16 09:09 Dose: 325 mg Piperacillin Sod/Tazobactam Sod (Zosyn 2.25 Gm Iv Premix) 2.25 gm in 50 mls @ 100 mls/hr IVPB Q8H [facility] Last Admin: 11/05/16 19:27 Dose: 100 mls/hr Vancomycin HCl 1 gm/ Sodium (Chloride) 250 mls @ 166.7 mls/hr IVPB MWF [facility] Last Admin: 11/05/16 09:09 Dose: 166.7 mls/hr Insulin Glargine (Lantus) 20 unit SC HS [facility] Last Admin: 11/04/16 22:32 Dose: 20 units Insulin Human Regular (Novolin R) 0 unit SC ACHS [facility] PRN Reason: Protocol Last Admin: 11/05/16 17:33 Dose: Not Given Losartan Potassium (Cozaar) 50 mg PO DAILY [facility] Last Admin: 11/05/16 09:08 Dose: 50 mg Morphine Sulfate (Morphine) 2 mg SC Q6H PRN PRN Reason: Pain Prednisone (Prednisone Tab) 50 mg PO TID [facility] Last Admin: 11/05/16 16:23 Dose: Not Given Rosuvastatin Calcium (Crestor) 2.5 mg PO HS [facility] Last Admin: 11/04/16 22:32 Dose: Not Given Vancomycin HCl (Vancocin (Oral Or Rectal Use)) 125 mg PO BID [facility] - Labs Labs: 11/03/16 11:13 11/03/16 11:13 PT 11.5 SECONDS (9.7-12.2) 10/26/16 18:15 INR 1.0 10/26/16 18:15 APTT 27 SECONDS (21-34) 10/26/16 18:15 Assessment and Plan (1) Foot infection Status: Acute (2) Lower limb ischemia Assessment & Plan: Patient with the peripheral vascular disease with ischemic changes. And also gangrene of the right greater on the right little toe. We'll continue the current antiplatelets. Glucose control blood pressure control. On antibiotic. Patient will need a definite surgical intervention bypass, planned in 2 days. And will follow the patient Status: Acute (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
--- NOTE | 2016-11-05 21:16 | CP.PCM.PN ---
Subjective - Date & Time of Evaluation Date of Evaluation: 11/05/16 Time of Evaluation: 18:00 - Subjective Subjective: Patient without cardiac events No chest pain and dyspnea Patient s/p Left Iliac intervention Physical Examination - Constitutional Appears: Older Than Stated Age, Chronically Ill - Head Exam Head Exam: ATRAUMATIC, NORMOCEPHALIC - Eye Exam Eye Exam: EOMI, Normal appearance Pupil Exam: NORMAL ACCOMODATION - ENT Exam ENT Exam: Mucous Membranes Moist - Respiratory Exam Respiratory Exam: Clear to Ausculation Bilateral. absent: Rales, Rhonchi, Wheezes - Cardiovascular Exam Cardiovascular Exam: REGULAR RHYTHM, +S1, +S2 - GI/Abdominal Exam GI & Abdominal Exam: Soft, Normal Bowel Sounds - Extremities Exam Extremities Exam: absent: Calf Tenderness, Normal Capillary Refill Additional comments: R toes dusky color - Neurological Exam Neurological Exam: Alert, Awake - Psychiatric Exam Psychiatric exam: Normal Affect, Normal Mood - Skin Skin Exam: Dry, Pallor, Warm Objective - Vital Signs/Intake and Output Vital Signs (last 24 hours): Temp Pulse Resp BP Pulse Ox 97.6 F 81 20 176/82 H 96 11/05/16 15:37 11/05/16 15:37 11/05/16 15:37 11/05/16 19:26 11/05/16 15:37 Intake and Output: 11/05/16 11/06/16 18:59 06:59 Intake Total 0 Balance 0 - Medications Medications: Current Medications Amlodipine Besylate (Norvasc) 10 mg PO DAILY [facility] Last Admin: 11/05/16 09:08 Dose: 10 mg Aspirin (Ecotrin) 81 mg PO DAILY [facility] Last Admin: 11/05/16 09:08 Dose: 81 mg Calcium Acetate (Phoslo) 2,668 mg PO TIDCC [facility] Last Admin: 11/05/16 19:27 Dose: 2,668 mg Carvedilol (Coreg) 12.5 mg PO BID [facility] Last Admin: 11/05/16 19:26 Dose: 12.5 mg Epoetin Alec (Procrit) 10,000 unit SC MWF [facility] Last Admin: 11/05/16 09:08 Dose: 10,000 unit Ferrous Sulfate (Feosol) 325 mg PO DAILY [facility] Last Admin: 11/05/16 09:09 Dose: 325 mg Piperacillin Sod/Tazobactam Sod (Zosyn 2.25 Gm Iv Premix) 2.25 gm in 50 mls @ 100 mls/hr IVPB Q8H [facility] Last Admin: 11/05/16 19:27 Dose: 100 mls/hr Vancomycin HCl 1 gm/ Sodium (Chloride) 250 mls @ 166.7 mls/hr IVPB MWF [facility] Last Admin: 11/05/16 09:09 Dose: 166.7 mls/hr Insulin Glargine (Lantus) 20 unit SC HS [facility] Last Admin: 11/04/16 22:32 Dose: 20 units Insulin Human Regular (Novolin R) 0 unit SC ACHS [facility] PRN Reason: Protocol Last Admin: 11/05/16 17:33 Dose: Not Given Losartan Potassium (Cozaar) 50 mg PO DAILY [facility] Last Admin: 11/05/16 09:08 Dose: 50 mg Morphine Sulfate (Morphine) 2 mg SC Q6H PRN PRN Reason: Pain Prednisone (Prednisone Tab) 50 mg PO TID [facility] Last Admin: 11/05/16 20:34 Dose: 50 mg Rosuvastatin Calcium (Crestor) 2.5 mg PO HS [facility] Last Admin: 11/04/16 22:32 Dose: Not Given Vancomycin HCl (Vancocin (Oral Or Rectal Use)) 125 mg PO BID [facility] - Labs Labs: 11/03/16 11:13 11/03/16 11:13 PT 11.5 SECONDS (9.7-12.2) 10/26/16 18:15 INR 1.0 10/26/16 18:15 APTT 27 SECONDS (21-34) 10/26/16 18:15 Assessment and Plan - Assessment and Plan (Free Text) Assessment: 51F, past smoker who quitted smoking last week, with Hx of PAD, HTN/HLD, DM2, ESRD on peritoneal HD, has ischemic Right foot with increasing pain. cardiology was consulted for cardiac risk assessment for a 2 step surgical procedures (1) angio to stent LLE; (2) RLE bypass surgery. Echo and stress test conducted. 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 - pending PD fluid analysis vs cellulitis/osteomyelitis vs c.diff - vanco and zosyn - increased diarrhea, c.diff pending R leg ischemia - progressing Foot infection r/o osteomyelitis - from hallux to 3rd and 5th digit PAD - CTA abdomin and pelvis: bilateral diffuse arterial atherosclerotic disease; occlusion of bilateral SFA; heavy calcification of bilateral anterior and posterior tibial aa. - high likelyhood of CAD vein mapping of the bilateral LE to assess for possible graft - Due to type 4 aortic arch, bilateral lower extremity run offs not performed due to technical difficulty and pt's CKD. IDDM2 Lable sugar - due to infection and decreased kidney metabolism of insulun ESRD on PD Macrocytic anemia, chronic - pending B12, folate - defer to primary team for managing Allergy: shrimp DVT prophylaxis - heparin 5000 q8 Patient s/p Left Iliac intervention
[2016-11-05] MEDS: Rosuvastatin Calcium 2.5 mg Tab PO SCH (22:01)
[2016-11-05] MEDS: (Lantus) Insulin Glargine, Recombinant SC SCH ×2 (22:08→22:10)
[2016-11-06] MEDS: Piperacill/Tazo 2.25gm in Dex 2.25 GM/50 ML BAG IVPB SCH ×3 (03:29→21:47)
[2016-11-06 07:27] LABS: HEMATOCRIT 25.9 % (34.0-47.0)
--- NOTE | 2016-11-06 07:29 | CP.PCM.PN ---
Subjective - Date & Time of Evaluation Date of Evaluation: 11/06/16 Time of Evaluation: 07:27 - Subjective Subjective: Vasc Sx: Dr Clark Pt S&E. MOMOO. POD#1 s/p angiography with left common iliac stent placement. Groin site is C/D/I, no pain. Still with pain in RLE. Plan for fem-pop bypass Objective - Vital Signs/Intake and Output Vital Signs (last 24 hours): Temp Pulse Resp BP Pulse Ox 97.4 F L 84 20 163/83 H 94 L 11/06/16 00:20 11/06/16 00:20 11/06/16 00:20 11/06/16 00:20 11/06/16 00:20 Intake and Output: 11/06/16 11/06/16 06:59 18:59 Intake Total 200 Balance 200 - Medications Medications: Current Medications Amlodipine Besylate (Norvasc) 10 mg PO DAILY [facility] Last Admin: 11/05/16 09:08 Dose: 10 mg Aspirin (Ecotrin) 81 mg PO DAILY [facility] Last Admin: 11/05/16 09:08 Dose: 81 mg Calcium Acetate (Phoslo) 2,668 mg PO TIDCC [facility] Last Admin: 11/05/16 19:27 Dose: 2,668 mg Carvedilol (Coreg) 12.5 mg PO BID [facility] Last Admin: 11/05/16 19:26 Dose: 12.5 mg Epoetin Alec (Procrit) 10,000 unit SC F [facility] Last Admin: 11/05/16 09:08 Dose: 10,000 unit Ferrous Sulfate (Feosol) 325 mg PO DAILY [facility] Last Admin: 11/05/16 09:09 Dose: 325 mg Piperacillin Sod/Tazobactam Sod (Zosyn 2.25 Gm Iv Premix) 2.25 gm in 50 mls @ 100 mls/hr IVPB Q8H [facility] Last Admin: 11/06/16 03:29 Dose: 100 mls/hr Vancomycin HCl 1 gm/ Sodium (Chloride) 250 mls @ 166.7 mls/hr IVPB MWF [facility] Last Admin: 11/05/16 09:09 Dose: 166.7 mls/hr Insulin Glargine (Lantus) 20 unit SC HS [facility] Last Admin: 11/05/16 22:10 Dose: 20 units Insulin Human Regular (Novolin R) 0 unit SC ACHS [facility] PRN Reason: Protocol Last Admin: 11/05/16 22:01 Dose: Not Given Losartan Potassium (Cozaar) 50 mg PO DAILY [facility] Last Admin: 11/05/16 09:08 Dose: 50 mg Morphine Sulfate (Morphine) 2 mg SC Q6H PRN PRN Reason: Pain Prednisone (Prednisone Tab) 50 mg PO TID [facility] Last Admin: 11/05/16 20:34 Dose: 50 mg Rosuvastatin Calcium (Crestor) 2.5 mg PO HS [facility] Last Admin: 11/05/16 22:01 Dose: Not Given Vancomycin HCl (Vancocin (Oral Or Rectal Use)) 125 mg PO BID [facility] - Labs Labs: 11/03/16 11:13 11/03/16 11:13 PT 11.5 SECONDS (9.7-12.2) 10/26/16 18:15 INR 1.0 10/26/16 18:15 APTT 27 SECONDS (21-34) 10/26/16 18:15 - Constitutional Appears: Non-toxic, No Acute Distress - Respiratory Exam Respiratory Exam: absent: Respiratory Distress - Cardiovascular Exam Cardiovascular Exam: REGULAR RHYTHM. absent: Tachycardia - GI/Abdominal Exam GI & Abdominal Exam: Soft. absent: Distended, Tenderness - Extremities Exam Extremities Exam: absent: Calf Tenderness, Pedal Edema Additional comments: b/l dry gangrene of 1st toe - Neurological Exam Neurological Exam: Alert, Awake, Oriented x3 - Skin Skin Exam: Normal Color, Warm Assessment and Plan - Assessment and Plan (Free Text) Assessment: 51F w/ b/l LE PAD Plan: s/p angiography of left iliac plan for RIGHT fem-pop bypass on will pre-op accordingly d/w Dr Eduardo Lopez, PGY2
[2016-11-06 07:42] LABS: MEAN CORPUSCULAR HEMOGLOBIN 32.6 pg (27.0-31.0); MEAN CORPUSCULAR HGB CONC 32.1 g/dL (33.0-37.0); MEAN PLATELET VOLUME 8.2 fL (7.2-11.7); RED CELL DISTRIBUTION WIDTH 18.6 % (11.5-14.5)
[2016-11-06 07:45] LABS: MEAN CELL VOLUME 101.1 fL (81.0-99.0); WHITE BLOOD COUNT 22.3 K/uL (4.8-10.8)
[2016-11-06 08:11] LABS: POTASSIUM 4.2 mmol/L (3.6-5.2)
[2016-11-06 08:13] LABS: BILIRUBIN,TOTAL 0.6 mg/dL (0.2-1.3)
[2016-11-06 08:14] LABS: CALCIUM 8.5 mg/dl (8.6-10.4); MAGNESIUM 2.6 mg/dL (1.6-2.3); PHOSPHOROUS 6.7 mg/dL (2.5-4.5)
[2016-11-06] MEDS: (Novolin R) Insulin Human Regular 100 units/ml vial SC SCH ×4 (08:34→22:07)
--- NOTE | 2016-11-06 10:39 | CP.PCM.PN ---
Subjective - Date & Time of Evaluation Date of Evaluation: 11/06/16 Time of Evaluation: 10:37 - Subjective Subjective: s/p angiogram and stenting LLE high sugars and bp noted on prednisone - for ? dye allergy ongoing pd, clear fluid Objective - Vital Signs/Intake and Output Vital Signs (last 24 hours): Temp Pulse Resp BP Pulse Ox 97.4 F L 84 20 163/83 H 94 L 11/06/16 00:20 11/06/16 00:20 11/06/16 00:20 11/06/16 00:20 11/06/16 00:20 Intake and Output: 11/06/16 11/06/16 06:59 18:59 Intake Total 200 Balance 200 - Medications Medications: Current Medications Amlodipine Besylate (Norvasc) 10 mg PO DAILY [facility] Last Admin: 11/05/16 09:08 Dose: 10 mg Aspirin (Ecotrin) 81 mg PO DAILY [facility] Last Admin: 11/05/16 09:08 Dose: 81 mg Calcium Acetate (Phoslo) 2,668 mg PO TIDCC [facility] Last Admin: 11/06/16 08:30 Dose: 2,668 mg Carvedilol (Coreg) 12.5 mg PO BID [facility] Last Admin: 11/05/16 19:26 Dose: 12.5 mg Epoetin Alec (Procrit) 10,000 unit SC [facility] [place] Last Admin: 11/05/16 09:08 Dose: 10,000 unit Ferrous Sulfate (Feosol) 325 mg PO DAILY [facility] Last Admin: 11/05/16 09:09 Dose: 325 mg Piperacillin Sod/Tazobactam Sod (Zosyn 2.25 Gm Iv Premix) 2.25 gm in 50 mls @ 100 mls/hr IVPB Q8H [facility] Last Admin: 11/06/16 03:29 Dose: 100 mls/hr Vancomycin HCl 1 gm/ Sodium (Chloride) 250 mls @ 166.7 mls/hr IVPB MWF [facility] Last Admin: 11/05/16 09:09 Dose: 166.7 mls/hr Insulin Glargine (Lantus) [address] [facility] Last Admin: 11/05/16 22:10 Dose: 20 units Insulin Human Regular (Novolin R) 0 unit SC [facility] PRN Reason: Protocol Last Admin: 11/06/16 08:34 Dose: 12 unit Losartan Potassium (Cozaar) 50 mg PO DAILY [facility] Last Admin: 11/05/16 09:08 Dose: 50 mg Morphine Sulfate (Morphine) 2 mg SC Q6H PRN PRN Reason: Pain Prednisone (Prednisone Tab) 50 mg PO TID [facility] Last Admin: 11/05/16 20:34 Dose: 50 mg Rosuvastatin Calcium (Crestor) 2.5 mg PO HS [facility] Last Admin: 11/05/16 22:01 Dose: Not Given Vancomycin HCl (Vancocin (Oral Or Rectal Use)) 125 mg PO BID [facility] - Labs Labs: 11/06/16 07:19 11/06/16 07:19 PT 11.5 SECONDS (9.7-12.2) 10/26/16 18:15 INR 1.0 10/26/16 18:15 APTT 27 SECONDS (21-34) 10/26/16 18:15 - Constitutional Appears: Non-toxic, No Acute Distress, Chronically Ill - Head Exam Head Exam: NORMAL INSPECTION - Eye Exam Eye Exam: Normal appearance - ENT Exam ENT Exam: Mucous Membranes Moist, Normal Exam - Neck Exam Neck Exam: Normal Inspection - Respiratory Exam Respiratory Exam: Clear to Ausculation Bilateral, NORMAL BREATHING PATTERN - Cardiovascular Exam Cardiovascular Exam: REGULAR RHYTHM - GI/Abdominal Exam GI & Abdominal Exam: Distended, Soft - Extremities Exam Extremities Exam: Normal Inspection (LLE dressing) Assessment and Plan (1) Chronic anemia Status: Acute (2) Foot infection Status: Acute (3) Lower limb ischemia Status: Acute (4) Type 2 diabetes mellitus with diabetic nephropathy Status: Acute (5) Diabetes mellitus Status: Acute (6) ESRD on peritoneal dialysis Status: Acute - Assessment and Plan (Free Text) Assessment: maintain pd increase losartan dose to 100mg daily consider dc prednisone sugar control per primary
[2016-11-06] MEDS: Vancomycin 125 MG/5 ML SOLN (ORAL/RECTAL) PO SCH ×2 (10:46→18:14)
--- NOTE | 2016-11-06 11:12 | CP.PCM.PN ---
<Brady Glez Y - Last Filed: 11/06/16 12:00> Subjective - Date & Time of Evaluation Date of Evaluation: 11/06/16 Time of Evaluation: 11:11 - Subjective Subjective: 51 y/o Female patient seen and evaluated this morning at bedside with Dr. Aldrich. Patient was given Left Lower extremity -common iliac stent replacement procedure yesterday By Dr. Clark. Patient states that her feet are cold. Patient also states that she has another surgery by Dr. Clark on for Left lower extremity. Patient denies any pedal pain at this time. Objective - Vital Signs/Intake and Output Vital Signs (last 24 hours): Temp Pulse Resp BP Pulse Ox 97.4 F L 84 20 190/90 H 94 L 11/06/16 00:20 11/06/16 00:20 11/06/16 00:20 11/06/16 10:46 11/06/16 00:20 Intake and Output: 11/06/16 11/06/16 06:59 18:59 Intake Total 200 Balance 200 - Medications Medications: Current Medications Amlodipine Besylate (Norvasc) 10 mg PO DAILY [facility] Last Admin: 11/06/16 10:46 Dose: 10 mg Aspirin (Ecotrin) 81 mg PO DAILY [facility] Last Admin: 11/06/16 10:46 Dose: 81 mg Calcium Acetate (Phoslo) 2,668 mg PO TIDCC [facility] Last Admin: 11/06/16 08:30 Dose: 2,668 mg Carvedilol (Coreg) 12.5 mg PO BID [facility] Last Admin: 11/06/16 10:46 Dose: 12.5 mg Epoetin Alec (Procrit) 10,000 unit SC MWF [facility] Last Admin: 11/05/16 09:08 Dose: 10,000 unit Ferrous Sulfate (Feosol) 325 mg PO DAILY [facility] Last Admin: 11/06/16 10:46 Dose: 325 mg Piperacillin Sod/Tazobactam Sod (Zosyn 2.25 Gm Iv Premix) 2.25 gm in 50 mls @ 100 mls/hr IVPB Q8H [facility] Last Admin: 11/06/16 03:29 Dose: 100 mls/hr Vancomycin HCl 1 gm/ Sodium (Chloride) 250 mls @ 166.7 mls/hr IVPB MWF [facility] Last Admin: 11/05/16 09:09 Dose: 166.7 mls/hr Insulin Glargine (Lantus) 20 unit SC HS [facility] Last Admin: 11/05/16 22:10 Dose: 20 units Insulin Human Regular (Novolin R) 0 unit SC ACHS [facility] PRN Reason: Protocol Last Admin: 11/06/16 08:34 Dose: 12 unit Losartan Potassium (Cozaar) 50 mg PO DAILY [facility] Last Admin: 11/06/16 10:46 Dose: 50 mg Morphine Sulfate (Morphine) 2 mg SC Q6H PRN PRN Reason: Pain Prednisone (Prednisone Tab) 50 mg PO TID [facility] Last Admin: 11/06/16 10:46 Dose: 50 mg Rosuvastatin Calcium (Crestor) 2.5 mg PO HS [facility] Last Admin: 11/05/16 22:01 Dose: Not Given Vancomycin HCl (Vancocin (Oral Or Rectal Use)) 125 mg PO BID [facility] Last Admin: 11/06/16 10:46 Dose: 125 mg - Labs Labs: 11/06/16 07:19 11/06/16 07:19 PT 11.5 SECONDS (9.7-12.2) 10/26/16 18:15 INR 1.0 10/26/16 18:15 APTT 27 SECONDS (21-34) 10/26/16 18:15 - Constitutional Appears: Non-toxic, No Acute Distress - Extremities Exam Additional comments: Additional findings: DERMATOLOGIC: Right foot hallux is ischemic with dusky discoloration, subcutaneous blistering , moderate drainage from first interspace with small opening in the skin. Hyperpigmenation of lesser digits as well. Left hallux has mild hyperpigmentation VASCULAR: DP/PT pulses non palpable, skin is the right foot is slightly cool NEUROLOGIC: Gross sensation, motor function intact ORTHOPEDIC: Pain on palpation to the right forefoot - Neurological Exam Neurological Exam: Alert, Awake, Oriented x3 - Psychiatric Exam Psychiatric exam: Normal Affect, Normal Mood Assessment and Plan - Assessment and Plan (Free Text) Assessment: 51 year old female with right foot ischemic hallux Plan: Patient seen and evaluated at bedside with Dr. Aldrich All the questions and concerns were addressed Patient to OR on for Right lower extremity Femoral-Popliteal bypass by Dr. Clark No dressing needed at this time Labs and vitals were reviewed Podiatry will continue to follow while patient remains in house. <Dre Aldrich - Last Filed: 11/06/16 16:27> Objective - Vital Signs/Intake and Output Vital Signs (last 24 hours): Temp Pulse Resp BP Pulse Ox 98.3 F 80 20 190/90 H 99 11/06/16 09:39 11/06/16 09:39 11/06/16 09:39 11/06/16 10:46 11/06/16 09:39 Intake and Output: 11/06/16 11/06/16 06:59 18:59 Intake Total 200 Balance 200 - Medications Medications: Current Medications Amlodipine Besylate (Norvasc) 10 mg PO DAILY [facility] Last Admin: 11/06/16 10:46 Dose: 10 mg Aspirin (Ecotrin) 81 mg PO DAILY [facility] Last Admin: 11/06/16 10:46 Dose: 81 mg Calcium Acetate (Phoslo) 2,668 mg PO TIDCC [facility] Last Admin: 11/06/16 12:45 Dose: 2,668 mg Carvedilol (Coreg) 12.5 mg PO BID [facility] Last Admin: 11/06/16 10:46 Dose: 12.5 mg Epoetin Alec (Procrit) 10,000 unit SC MWF [facility] Last Admin: 11/05/16 09:08 Dose: 10,000 unit Ferrous Sulfate (Feosol) 325 mg PO DAILY [facility] Last Admin: 11/06/16 10:46 Dose: 325 mg Piperacillin Sod/Tazobactam Sod (Zosyn 2.25 Gm Iv Premix) 2.25 gm in 50 mls @ 100 mls/hr IVPB Q8H [facility] Last Admin: 11/06/16 13:28 Dose: 100 mls/hr Vancomycin HCl 1 gm/ Sodium (Chloride) 250 mls @ 166.7 mls/hr IVPB MWF [facility] Last Admin: 11/05/16 09:09 Dose: 166.7 mls/hr Insulin Glargine (Lantus) 20 unit SC HS [facility] Last Admin: 11/05/16 22:10 Dose: 20 units Insulin Human Regular (Novolin R) 0 unit SC ACHS [facility] PRN Reason: Protocol Last Admin: 11/06/16 12:45 Dose: 10 unit Losartan Potassium (Cozaar) 50 mg PO DAILY [facility] Last Admin: 11/06/16 10:46 Dose: 50 mg Morphine Sulfate (Morphine) 2 mg SC Q6H PRN PRN Reason: Pain Rosuvastatin Calcium (Crestor) 2.5 mg PO HS [facility] Last Admin: 11/05/16 22:01 Dose: Not Given Vancomycin HCl (Vancocin (Oral Or Rectal Use)) 125 mg PO BID [facility] Last Admin: 11/06/16 10:46 Dose: 125 mg - Labs Labs: 11/06/16 07:19 11/06/16 07:19 PT 11.5 SECONDS (9.7-12.2) 10/26/16 18:15 INR 1.0 10/26/16 18:15 APTT 27 SECONDS (21-34) 10/26/16 18:15 Attending/Attestation - Attestation I have personally seen and examined this patient.: Yes I have fully participated in the care of the patient.: Yes I have reviewed all pertinent clinical information, including history, physical exam and plan: Yes
--- NOTE | 2016-11-06 11:27 | CP.PCM.PN ---
Subjective - Date & Time of Evaluation Date of Evaluation: 11/06/16 Time of Evaluation: 07:00 - Subjective Subjective: s/p angiogram and stenting LLE high sugars and bp noted on prednisone wbc elevated rx in progress ongoing pd, clear fluid Objective - Vital Signs/Intake and Output Vital Signs (last 24 hours): Temp Pulse Resp BP Pulse Ox 97.4 F L 84 20 190/90 H 94 L 11/06/16 00:20 11/06/16 00:20 11/06/16 00:20 11/06/16 10:46 11/06/16 00:20 Intake and Output: 11/06/16 11/06/16 06:59 18:59 Intake Total 200 Balance 200 - Medications Medications: Current Medications Amlodipine Besylate (Norvasc) 10 mg PO DAILY [facility] Last Admin: 11/06/16 10:46 Dose: 10 mg Aspirin (Ecotrin) 81 mg PO DAILY [facility] Last Admin: 11/06/16 10:46 Dose: 81 mg Calcium Acetate (Phoslo) 2,668 mg PO TIDCC [facility] Last Admin: 11/06/16 08:30 Dose: 2,668 mg Carvedilol (Coreg) 12.5 mg PO BID [facility] Last Admin: 11/06/16 10:46 Dose: 12.5 mg Epoetin Alec (Procrit) 10,000 unit [place] [facility] [place] Last Admin: 11/05/16 09:08 Dose: 10,000 unit Ferrous Sulfate (Feosol) 325 mg PO DAILY [facility] Last Admin: 11/06/16 10:46 Dose: 325 mg Piperacillin Sod/Tazobactam Sod (Zosyn 2.25 Gm Iv Premix) 2.25 gm in 50 mls @ 100 mls/hr IVPB Q8H [facility] Last Admin: 11/06/16 03:29 Dose: 100 mls/hr Vancomycin HCl 1 gm/ Sodium (Chloride) 250 mls @ 166.7 mls/hr IVPB MWF [facility] Last Admin: 11/05/16 09:09 Dose: 166.7 mls/hr Insulin Glargine (Lantus) 20 unit SC [facility] Last Admin: 11/05/16 22:10 Dose: 20 units Insulin Human Regular (Novolin R) 0 unit SC [facility] PRN Reason: Protocol Last Admin: 11/06/16 08:34 Dose: 12 unit Losartan Potassium (Cozaar) 50 mg PO DAILY [facility] Last Admin: 11/06/16 10:46 Dose: 50 mg Morphine Sulfate (Morphine) 2 mg SC Q6H PRN PRN Reason: Pain Prednisone (Prednisone Tab) 50 mg PO TID [facility] Last Admin: 11/06/16 10:46 Dose: 50 mg Rosuvastatin Calcium (Crestor) 2.5 mg PO HS [facility] Last Admin: 11/05/16 22:01 Dose: Not Given Vancomycin HCl (Vancocin (Oral Or Rectal Use)) 125 mg PO BID [facility] Last Admin: 11/06/16 10:46 Dose: 125 mg - Labs Labs: 11/06/16 07:19 11/06/16 07:19 PT 11.5 SECONDS (9.7-12.2) 10/26/16 18:15 INR 1.0 10/26/16 18:15 APTT 27 SECONDS (21-34) 10/26/16 18:15 - Constitutional Appears: Non-toxic, Chronically Ill - Head Exam Head Exam: NORMOCEPHALIC - Eye Exam Eye Exam: PERRL. absent: Scleral icterus - ENT Exam ENT Exam: Mucous Membranes Dry - Neck Exam Neck Exam: absent: Lymphadenopathy - Respiratory Exam Respiratory Exam: Decreased Breath Sounds, Rhonchi - Cardiovascular Exam Cardiovascular Exam: REGULAR RHYTHM, +S1, +S2 - GI/Abdominal Exam GI & Abdominal Exam: Distended, Soft Assessment and Plan (1) Foot infection Status: Acute (2) Lower limb ischemia Status: Acute (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
--- NOTE | 2016-11-06 20:16 | CP.PCM.PN ---
Subjective - Date & Time of Evaluation Date of Evaluation: 11/06/16 Time of Evaluation: 20:14 - Subjective Subjective: Patient is having less pain today. Some numbness noted in the legs. Right great toe showing evidence of ischemic changes, also foul smelling discharge present. On the right little toe gangrenous changes noted. Abdominal distention present secondary to peritoneal dialysis. Left leg feeling okay, some pain noted. Groin is no hematoma noted Objective - Vital Signs/Intake and Output Vital Signs (last 24 hours): Temp Pulse Resp BP Pulse Ox 97.4 F L 81 18 152/74 H 100 11/06/16 16:00 11/06/16 16:00 11/06/16 16:00 11/06/16 18:21 11/06/16 16:00 Intake and Output: Chest good air entry bilaterally regular heart sound, abdominal distention. Right leg ischemic changes, gangrenous changes noted. - Medications Medications: Current Medications Amlodipine Besylate (Norvasc) 10 mg PO DAILY [facility] Last Admin: 11/06/16 10:46 Dose: 10 mg Aspirin (Ecotrin) 81 mg PO DAILY [facility] Last Admin: 11/06/16 10:46 Dose: 81 mg Calcium Acetate (Phoslo) 2,668 mg PO TIDCC [facility] Last Admin: 11/06/16 18:13 Dose: 2,668 mg Carvedilol (Coreg) 12.5 mg PO BID [facility] Last Admin: 11/06/16 18:21 Dose: 12.5 mg Epoetin Alec (Procrit) 10,000 unit SC [facility] [place] Last Admin: 11/05/16 09:08 Dose: 10,000 unit Ferrous Sulfate (Feosol) 325 mg PO DAILY [facility] Last Admin: 11/06/16 10:46 Dose: 325 mg Piperacillin Sod/Tazobactam Sod (Zosyn 2.25 Gm Iv Premix) 2.25 gm in 50 mls @ 100 mls/hr IVPB Q8H [facility] Last Admin: 11/06/16 13:28 Dose: 100 mls/hr Vancomycin HCl 1 gm/ Sodium (Chloride) 250 mls @ 166.7 mls/hr IVPB MWF [facility] Last Admin: 11/05/16 09:09 Dose: 166.7 mls/hr Insulin Glargine (Lantus) 20 unit SC [facility] Last Admin: 11/05/16 22:10 Dose: 20 units Insulin Human Regular (Novolin R) 0 unit SC ACHS [facility] PRN Reason: Protocol Last Admin: 11/06/16 17:03 Dose: Not Given Losartan Potassium (Cozaar) 50 mg PO DAILY [facility] Last Admin: 11/06/16 10:46 Dose: 50 mg Morphine Sulfate (Morphine) 2 mg SC Q6H PRN PRN Reason: Pain Rosuvastatin Calcium (Crestor) 2.5 mg PO HS [facility] Last Admin: 11/05/16 22:01 Dose: Not Given Vancomycin HCl (Vancocin (Oral Or Rectal Use)) 125 mg PO BID [facility] Last Admin: 11/06/16 18:14 Dose: 125 mg - Labs Labs: 11/06/16 07:19 11/06/16 07:19 PT 11.5 SECONDS (9.7-12.2) 10/26/16 18:15 INR 1.0 10/26/16 18:15 APTT 27 SECONDS (21-34) 10/26/16 18:15 Assessment and Plan (1) Foot infection Status: Acute (2) Lower limb ischemia Assessment & Plan: Patient with the severe peripheral vascular disease. Currently on antiplatelets. Patient is having ischemic changes and gangrenous changes noted. Patient is scheduled to have the femoropopliteal bypass on . Receiving peritoneal dialysis. Glucose control and will follow the patient Status: Acute (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
--- NOTE | 2016-11-06 20:23 | CP.PCM.PN ---
Subjective - Date & Time of Evaluation Date of Evaluation: 11/06/16 Time of Evaluation: 07:00 - Subjective Subjective: Patient without cardiac events No chest pain and dyspnea Patient s/p Left Iliac intervention Physical Examination - Constitutional Appears: Older Than Stated Age, Chronically Ill - Head Exam Head Exam: ATRAUMATIC, NORMOCEPHALIC - Eye Exam Eye Exam: EOMI, Normal appearance Pupil Exam: NORMAL ACCOMODATION - ENT Exam ENT Exam: Mucous Membranes Moist - Respiratory Exam Respiratory Exam: Clear to Ausculation Bilateral. absent: Rales, Rhonchi, Wheezes - Cardiovascular Exam Cardiovascular Exam: REGULAR RHYTHM, +S1, +S2 - GI/Abdominal Exam GI & Abdominal Exam: Soft, Normal Bowel Sounds - Extremities Exam Extremities Exam: absent: Calf Tenderness, Normal Capillary Refill Additional comments: R toes dusky color - Neurological Exam Neurological Exam: Alert, Awake - Psychiatric Exam Psychiatric exam: Normal Affect, Normal Mood - Skin Skin Exam: Dry, Pallor, Warm Objective - Vital Signs/Intake and Output Vital Signs (last 24 hours): Temp Pulse Resp BP Pulse Ox 97.4 F L 81 18 152/74 H 100 11/06/16 16:00 11/06/16 16:00 11/06/16 16:00 11/06/16 18:21 11/06/16 16:00 - Medications Medications: Current Medications Amlodipine Besylate (Norvasc) 10 mg PO DAILY [facility] Last Admin: 11/06/16 10:46 Dose: 10 mg Aspirin (Ecotrin) 81 mg PO DAILY [facility] Last Admin: 11/06/16 10:46 Dose: 81 mg Calcium Acetate (Phoslo) 2,668 mg PO TIDCC [facility] Last Admin: 11/06/16 18:13 Dose: 2,668 mg Carvedilol (Coreg) 12.5 mg PO BID [facility] Last Admin: 11/06/16 18:21 Dose: 12.5 mg Epoetin Alec (Procrit) 10,000 unit SC MWF [facility] Last Admin: 11/05/16 09:08 Dose: 10,000 unit Ferrous Sulfate (Feosol) 325 mg PO DAILY [facility] Last Admin: 11/06/16 10:46 Dose: 325 mg Piperacillin Sod/Tazobactam Sod (Zosyn 2.25 Gm Iv Premix) 2.25 gm in 50 mls @ 100 mls/hr IVPB Q8H [facility] Last Admin: 11/06/16 13:28 Dose: 100 mls/hr Vancomycin HCl 1 gm/ Sodium (Chloride) 250 mls @ 166.7 mls/hr IVPB MWF [facility] Last Admin: 11/05/16 09:09 Dose: 166.7 mls/hr Insulin Glargine (Lantus) 20 unit SC HS [facility] Last Admin: 11/05/16 22:10 Dose: 20 units Insulin Human Regular (Novolin R) 0 unit SC ACHS [facility] PRN Reason: Protocol Last Admin: 11/06/16 17:03 Dose: Not Given Losartan Potassium (Cozaar) 50 mg PO DAILY [facility] Last Admin: 11/06/16 10:46 Dose: 50 mg Morphine Sulfate (Morphine) 2 mg SC Q6H PRN PRN Reason: Pain Rosuvastatin Calcium (Crestor) 2.5 mg PO HS [facility] Last Admin: 11/05/16 22:01 Dose: Not Given Vancomycin HCl (Vancocin (Oral Or Rectal Use)) 125 mg PO BID [facility] Last Admin: 11/06/16 18:14 Dose: 125 mg - Labs Labs: 11/06/16 07:19 11/06/16 07:19 PT 11.5 SECONDS (9.7-12.2) 10/26/16 18:15 INR 1.0 10/26/16 18:15 APTT 27 SECONDS (21-34) 10/26/16 18:15 Assessment and Plan - Assessment and Plan (Free Text) Assessment: 51F, past smoker who quitted smoking last week, with Hx of PAD, HTN/HLD, DM2, ESRD on peritoneal HD, has ischemic Right foot with increasing pain. cardiology was consulted for cardiac risk assessment for a 2 step surgical procedures (1) angio to stent LLE; (2) RLE bypass surgery. Echo and stress test conducted. 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 - pending PD fluid analysis vs cellulitis/osteomyelitis vs c.diff - vanco and zosyn - increased diarrhea, c.diff pending R leg ischemia - progressing Foot infection r/o osteomyelitis - from hallux to 3rd and 5th digit PAD - CTA abdomin and pelvis: bilateral diffuse arterial atherosclerotic disease; occlusion of bilateral SFA; heavy calcification of bilateral anterior and posterior tibial aa. - high likelyhood of CAD vein mapping of the bilateral LE to assess for possible graft - Due to type 4 aortic arch, bilateral lower extremity run offs not performed due to technical difficulty and pt's CKD. IDDM2 Lable sugar - due to infection and decreased kidney metabolism of insulun ESRD on PD Macrocytic anemia, chronic - pending B12, folate - defer to primary team for managing Allergy: shrimp DVT prophylaxis - heparin 5000 q8 Patient s/p Left Iliac intervention
[2016-11-06] MEDS: (Lantus) Insulin Glargine, Recombinant SC SCH (21:57)
[2016-11-06] MEDS: Rosuvastatin Calcium 2.5 mg Tab PO SCH (22:52)
[2016-11-07] MEDS: Piperacill/Tazo 2.25gm in Dex 2.25 GM/50 ML BAG IVPB SCH ×5 (02:37→19:19)
[2016-11-07] MEDS: (Novolin R) Insulin Human Regular 100 units/ml vial SC SCH ×5 (07:50→21:11)
[2016-11-07] MEDS: Vancomycin 125 MG/5 ML SOLN (ORAL/RECTAL) PO SCH ×2 (09:51→19:09)
--- NOTE | 2016-11-07 14:18 | CP.PCM.PN ---
Subjective - Date & Time of Evaluation Date of Evaluation: 11/07/16 Time of Evaluation: 07:40 - Subjective Subjective: Vascular Surgery progress note: Eduardo Pt seen and examined. Still complains of RLE pain. Denies F/C/N/V and other acute complaints at this time. Objective - Vital Signs/Intake and Output Vital Signs (last 24 hours): Temp Pulse Resp BP Pulse Ox 98.6 F 89 20 160/74 H 99 11/07/16 07:15 11/07/16 07:15 11/07/16 07:15 11/07/16 12:14 11/07/16 07:15 Intake and Output: 11/07/16 11/07/16 06:59 18:59 Intake Total 440 Balance 440 - Medications Medications: Current Medications Amlodipine Besylate (Norvasc) 10 mg PO DAILY [facility] Last Admin: 11/07/16 10:30 Dose: Not Given Aspirin (Ecotrin) 81 mg PO DAILY [facility] Last Admin: 11/07/16 09:50 Dose: 81 mg Calcium Acetate (Phoslo) 2,668 mg PO TIDCC [facility] Last Admin: 11/07/16 12:17 Dose: 2,668 mg Carvedilol (Coreg) 12.5 mg PO BID [facility] Last Admin: 11/07/16 10:30 Dose: Not Given Epoetin Alec (Procrit) 10,000 unit [place] [facility] [place] Last Admin: 11/05/16 09:08 Dose: 10,000 unit Ferrous Sulfate (Feosol) 325 mg PO DAILY [facility] Last Admin: 11/07/16 09:50 Dose: 325 mg Piperacillin Sod/Tazobactam Sod (Zosyn 2.25 Gm Iv Premix) 2.25 gm in 50 mls @ 100 mls/hr IVPB Q8H [facility] Last Admin: 11/07/16 12:17 Dose: 100 mls/hr Vancomycin HCl 1 gm/ Sodium (Chloride) 250 mls @ 166.7 mls/hr IVPB MWF [facility] Last Admin: 11/07/16 10:30 Dose: Not Given Insulin Glargine (Lantus) 20 unit SC HS [facility] Last Admin: 11/06/16 21:57 Dose: 20 units Insulin Human Regular (Novolin R) 0 unit SC [facility] PRN Reason: Protocol Last Admin: 11/07/16 12:23 Dose: Not Given Losartan Potassium (Cozaar) 100 mg PO DAILY [facility] Losartan Potassium (Cozaar) 50 mg PO ONCE ONE Stop: 11/07/16 18:01 Morphine Sulfate (Morphine) 2 mg SC Q6H PRN PRN Reason: Pain Last Admin: 11/06/16 21:25 Dose: 2 mg Prednisone (Prednisone Tab) 50 mg PO TID [facility] Rosuvastatin Calcium (Crestor) 2.5 mg PO HS [facility] Last Admin: 11/06/16 22:52 Dose: Not Given Vancomycin HCl (Vancocin (Oral Or Rectal Use)) 125 mg PO BID [facility] Last Admin: 11/07/16 09:51 Dose: 125 mg - Labs Labs: 11/06/16 07:19 11/06/16 07:19 PT 11.5 SECONDS (9.7-12.2) 10/26/16 18:15 INR 1.0 10/26/16 18:15 APTT 27 SECONDS (21-34) 10/26/16 18:15 - Constitutional Appears: No Acute Distress - Head Exam Head Exam: ATRAUMATIC, NORMOCEPHALIC - Eye Exam Eye Exam: EOMI. absent: Scleral icterus - ENT Exam ENT Exam: Mucous Membranes Moist - Respiratory Exam Respiratory Exam: absent: Respiratory Distress - Cardiovascular Exam Cardiovascular Exam: REGULAR RHYTHM. absent: Tachycardia - GI/Abdominal Exam GI & Abdominal Exam: Soft. absent: Distended, Tenderness - Extremities Exam Extremities Exam: absent: Calf Tenderness, Pedal Edema Additional comments: b/l dry gangrene of 1st toe - Neurological Exam Neurological Exam: Alert, Awake, Oriented x3 - Skin Skin Exam: Normal Color, Warm Assessment and Plan - Assessment and Plan (Free Text) Assessment: 51F w/ b/l LE PAD Plan: - s/p angiography of left iliac - OR tomorrow for right femoral-popliteal bypass - [place] protocol Case d/w Dr. Eduardo Lopez PGY1
--- NOTE | 2016-11-07 14:25 | CP.PCM.PN ---
Subjective - Date & Time of Evaluation Date of Evaluation: 11/07/16 Time of Evaluation: 13:40 - Subjective Subjective: diarrhea persists stool culture negative claims fluid clear no documentation of PD treatment (pt using her own cycler) pt has been refusing ab dosing and bp meds bp elevated chronic pain in right foot surgery scheduled for am Objective - Vital Signs/Intake and Output Vital Signs (last 24 hours): Temp Pulse Resp BP Pulse Ox 98.6 F 89 20 160/74 H 99 11/07/16 07:15 11/07/16 07:15 11/07/16 07:15 11/07/16 12:14 11/07/16 07:15 Intake and Output: 11/07/16 11/07/16 06:59 18:59 Intake Total 440 Balance 440 - Medications Medications: Current Medications Amlodipine Besylate (Norvasc) 10 mg PO DAILY [facility] Last Admin: 11/07/16 10:30 Dose: Not Given Aspirin (Ecotrin) 81 mg PO DAILY [facility] Last Admin: 11/07/16 09:50 Dose: 81 mg Calcium Acetate (Phoslo) 2,668 mg PO TIDCC [facility] Last Admin: 11/07/16 12:17 Dose: 2,668 mg Carvedilol (Coreg) 12.5 mg PO BID [facility] Last Admin: 11/07/16 10:30 Dose: Not Given Epoetin Alec (Procrit) 10,000 unit SC [facility] Last Admin: 11/05/16 09:08 Dose: 10,000 unit Ferrous Sulfate (Feosol) 325 mg PO DAILY [facility] Last Admin: 11/07/16 09:50 Dose: 325 mg Piperacillin Sod/Tazobactam Sod (Zosyn 2.25 Gm Iv Premix) 2.25 gm in 50 mls @ 100 mls/hr IVPB Q8H [facility] Last Admin: 11/07/16 12:17 Dose: 100 mls/hr Vancomycin HCl 1 gm/ Sodium (Chloride) 250 mls @ 166.7 mls/hr IVPB MWF [facility] Last Admin: 11/07/16 10:30 Dose: Not Given Insulin Glargine (Lantus) 20 unit SC [facility] Last Admin: 11/06/16 21:57 Dose: 20 units Insulin Human Regular (Novolin R) 0 unit SC ACHS [facility] PRN Reason: Protocol Last Admin: 11/07/16 12:23 Dose: Not Given Losartan Potassium (Cozaar) 100 mg PO DAILY [facility] Losartan Potassium (Cozaar) 50 mg PO ONCE ONE Stop: 11/07/16 18:01 Morphine Sulfate (Morphine) 2 mg SC Q6H PRN PRN Reason: Pain Last Admin: 11/06/16 21:25 Dose: 2 mg Prednisone (Prednisone Tab) 50 mg PO TID [facility] Rosuvastatin Calcium (Crestor) 2.5 mg PO HS [facility] Last Admin: 11/06/16 22:52 Dose: Not Given Vancomycin HCl (Vancocin (Oral Or Rectal Use)) 125 mg PO BID [facility] Last Admin: 11/07/16 09:51 Dose: 125 mg - Labs Labs: 11/06/16 07:19 11/06/16 07:19 PT 11.5 SECONDS (9.7-12.2) 10/26/16 18:15 INR 1.0 10/26/16 18:15 APTT 27 SECONDS (21-34) 10/26/16 18:15 - Constitutional Appears: Chronically Ill - Eye Exam Eye Exam: EOMI - ENT Exam ENT Exam: Mucous Membranes Moist - Neck Exam Neck Exam: Full ROM. absent: Lymphadenopathy - Respiratory Exam Respiratory Exam: NORMAL BREATHING PATTERN. absent: Accessory Muscle Use - Cardiovascular Exam Cardiovascular Exam: REGULAR RHYTHM. absent: Rubs - GI/Abdominal Exam GI & Abdominal Exam: Soft, Hyperactive Bowel Sounds. absent: Tenderness - Extremities Exam Extremities Exam: absent: Pedal Edema Additional comments: right foot with big toe dark and cool - Neurological Exam Neurological Exam: Oriented x3 Assessment and Plan - Assessment and Plan (Free Text) Assessment: continue PD pt appears euvolemic increase rhys sanchez bp meds f/u stool cultures
[2016-11-07] MEDS: EPOETIN ALFA 10,000 UNIT/ML ML SC SCH (15:46)
[2016-11-07 17:39] LABS: HEMATOCRIT 24.4 % (34.0-47.0); MEAN CELL VOLUME 100.7 fL (81.0-99.0); MEAN CORPUSCULAR HEMOGLOBIN 32.3 pg (27.0-31.0); MEAN PLATELET VOLUME 7.6 fL (7.2-11.7); WHITE BLOOD COUNT 21.7 K/uL (4.8-10.8)
[2016-11-07 17:48] LABS: POTASSIUM 3.8 mmol/L (3.6-5.2)
[2016-11-07 17:51] LABS: CALCIUM 8.1 mg/dl (8.6-10.4)
[2016-11-07] MEDS: (Lantus) Insulin Glargine, Recombinant SC SCH (21:45)
--- NOTE | 2016-11-07 22:59 | CP.PCM.PN ---
Subjective - Date & Time of Evaluation Date of Evaluation: 11/07/16 Time of Evaluation: 11:15 - Subjective Subjective: Patient denies chest pain and dyspnea Physical Examination - Constitutional Appears: Older Than Stated Age, Chronically Ill - Head Exam Head Exam: ATRAUMATIC, NORMOCEPHALIC - Eye Exam Eye Exam: EOMI, Normal appearance Pupil Exam: NORMAL ACCOMODATION - ENT Exam ENT Exam: Mucous Membranes Moist - Respiratory Exam Respiratory Exam: Clear to Ausculation Bilateral. absent: Rales, Rhonchi, Wheezes - Cardiovascular Exam Cardiovascular Exam: REGULAR RHYTHM, +S1, +S2 - GI/Abdominal Exam GI & Abdominal Exam: Soft, Normal Bowel Sounds - Extremities Exam Extremities Exam: absent: Calf Tenderness, Normal Capillary Refill Additional comments: R toes dusky color - Neurological Exam Neurological Exam: Alert, Awake - Psychiatric Exam Psychiatric exam: Normal Affect, Normal Mood - Skin Skin Exam: Dry, Pallor, Warm Objective - Vital Signs/Intake and Output Vital Signs (last 24 hours): Temp Pulse Resp BP Pulse Ox 98.2 F 84 20 159/63 H 98 11/07/16 20:59 11/07/16 20:59 11/07/16 20:59 11/07/16 20:59 11/07/16 20:59 Intake and Output: 11/07/16 11/08/16 18:59 06:59 Intake Total 200 Balance 200 - Medications Medications: Current Medications Amlodipine Besylate (Norvasc) 10 mg PO DAILY [facility] Last Admin: 11/07/16 10:30 Dose: Not Given Aspirin (Ecotrin) 81 mg PO DAILY [facility] Last Admin: 11/07/16 09:50 Dose: 81 mg Calcium Acetate (Phoslo) 2,668 mg PO TIDCC [facility] Last Admin: 11/07/16 19:08 Dose: 2,668 mg Carvedilol (Coreg) 12.5 mg PO BID [facility] Last Admin: 11/07/16 19:09 Dose: 12.5 mg Diphenhydramine HCl (Benadryl) 50 mg PO ONCE ONE Stop: 11/08/16 09:01 Epoetin Alec (Procrit) 10,000 unit SC MWF [facility] Last Admin: 11/07/16 15:46 Dose: Not Given Ferrous Sulfate (Feosol) 325 mg PO DAILY [facility] Last Admin: 11/07/16 09:50 Dose: 325 mg Piperacillin Sod/Tazobactam Sod (Zosyn 2.25 Gm Iv Premix) 2.25 gm in 50 mls @ 100 mls/hr IVPB Q8H [facility] Last Admin: 11/07/16 19:19 Dose: 100 mls/hr Vancomycin HCl 1 gm/ Sodium (Chloride) 250 mls @ 166.7 mls/hr IVPB MWF [facility] Last Admin: 11/07/16 10:30 Dose: Not Given Insulin Glargine (Lantus) 20 unit SC HS [facility] Last Admin: 11/07/16 21:45 Dose: 20 units Insulin Human Regular (Novolin R) 0 unit SC ACHS [facility] PRN Reason: Protocol Last Admin: 11/07/16 21:11 Dose: Not Given Losartan Potassium (Cozaar) 100 mg PO DAILY@1800 [facility] Morphine Sulfate (Morphine) 2 mg SC Q6H PRN PRN Reason: Pain Last Admin: 11/06/16 21:25 Dose: 2 mg Prednisone (Prednisone Tab) 50 mg PO 0300,0900,2100 [facility] Stop: 11/08/16 09:01 Last Admin: 11/07/16 21:02 Dose: 50 mg Rosuvastatin Calcium (Crestor) 2.5 mg PO [facility] Last Admin: 11/06/16 22:52 Dose: Not Given Vancomycin HCl (Vancocin (Oral Or Rectal Use)) 125 mg PO BID [facility] Last Admin: 11/07/16 19:09 Dose: 125 mg - Labs Labs: 11/07/16 17:26 11/07/16 17:26 PT 11.0 SECONDS (9.7-12.2) 11/07/16 17:26 INR 1.0 11/07/16 17:26 APTT 27 SECONDS (21-34) 10/26/16 18:15 Assessment and Plan - Assessment and Plan (Free Text) Assessment: 51F, past smoker who quitted smoking last week, with Hx of PAD, HTN/HLD, DM2, ESRD on peritoneal HD, has ischemic Right foot with increasing pain. cardiology was consulted for cardiac risk assessment for a 2 step surgical procedures (1) angio to stent LLE; (2) RLE bypass surgery. Echo and stress test conducted. 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 - pending PD fluid analysis vs cellulitis/osteomyelitis vs c.diff - vanco and zosyn - increased diarrhea, c.diff pending R leg ischemia - progressing Foot infection r/o osteomyelitis - from hallux to 3rd and 5th digit PAD - CTA abdomin and pelvis: bilateral diffuse arterial atherosclerotic disease; occlusion of bilateral SFA; heavy calcification of bilateral anterior and posterior tibial aa. - high likelyhood of CAD vein mapping of the bilateral LE to assess for possible graft - Due to type 4 aortic arch, bilateral lower extremity run offs not performed due to technical difficulty and pt's CKD. IDDM2 Lable sugar - due to infection and decreased kidney metabolism of insulun ESRD on PD Macrocytic anemia, chronic - pending B12, folate - defer to primary team for managing Allergy: shrimp DVT prophylaxis - heparin 5000 q8 Patient s/p Left Iliac intervention Cardiac point of view (Normal EF and stress test) assessed as intermediate risk for Peripheral angiogram and intervention. Intermediate to high cardiac risk for Vascular bypass. If the benefit outweighs the risk please proceed with the needed therapeutic procedures/surgery Thank you
[2016-11-08] MEDS: Piperacill/Tazo 2.25gm in Dex 2.25 GM/50 ML BAG IVPB SCH ×3 (04:21→21:11)
[2016-11-08 06:15] LABS: HEMATOCRIT 26.5 % (34.0-47.0); MEAN CELL VOLUME 100.3 fL (81.0-99.0); MEAN CORPUSCULAR HEMOGLOBIN 32.2 pg (27.0-31.0); MEAN CORPUSCULAR HGB CONC 32.1 g/dL (33.0-37.0); MEAN PLATELET VOLUME 7.8 fL (7.2-11.7); RED CELL DISTRIBUTION WIDTH 18.5 % (11.5-14.5); WHITE BLOOD COUNT 21.2 K/uL (4.8-10.8)
[2016-11-08 06:28] LABS: POTASSIUM 4.5 mmol/L (3.6-5.2)
[2016-11-08 06:31] LABS: ALB/GLOB RATIO 1.1 (1.0-2.1); BILIRUBIN,TOTAL 0.5 mg/dL (0.2-1.3); CALCIUM 8.4 mg/dl (8.6-10.4); TOTAL PROTEIN 6.5 g/dL (6.3-8.3)
[2016-11-08] MEDS ORDERED: (Novolin R) Insulin Human Regular 100 units/ml vial SC ONE ×2 (06:59→08:41)
[2016-11-08] MEDS: (Novolin R) Insulin Human Regular 100 units/ml vial SC SCH ×4 (08:42→22:33)
[2016-11-08] MEDS ORDERED: (Novolin R) Insulin Human Regular 100 units/ml vial IV ONE (09:44)
--- NOTE | 2016-11-08 10:28 | CP.PCM.PN ---
Subjective - Date & Time of Evaluation Date of Evaluation: 11/08/16 Time of Evaluation: 10:26 - Subjective Subjective: s/p stent placement in LLE for fem-pop right LE today given steroids for CT angio BSs elevated related to steroid use BP better- still moderately elevated anxious , otherwise only c/o RLE foot pains Toe #1 right - gangrene demarcating PD fluid clear Objective - Vital Signs/Intake and Output Vital Signs (last 24 hours): Temp Pulse Resp BP Pulse Ox 98.5 F 80 20 165/79 H 96 11/08/16 07:00 11/08/16 07:00 11/08/16 07:00 11/08/16 07:00 11/08/16 07:00 Intake and Output: 11/08/16 11/08/16 06:59 18:59 Intake Total 350 Balance 350 - Medications Medications: Current Medications Amlodipine Besylate (Norvasc) 10 mg PO DAILY [facility] Last Admin: 11/07/16 10:30 Dose: Not Given Aspirin (Ecotrin) 81 mg PO DAILY [facility] Last Admin: 11/07/16 09:50 Dose: 81 mg Calcium Acetate (Phoslo) 2,668 mg PO TIDCC [facility] Last Admin: 11/08/16 08:42 Dose: Not Given Carvedilol (Coreg) 12.5 mg PO BID [facility] Last Admin: 11/07/16 19:09 Dose: 12.5 mg Epoetin Alec (Procrit) 10,000 unit SC [facility] [place] Last Admin: 11/07/16 15:46 Dose: Not Given Ferrous Sulfate (Feosol) 325 mg PO DAILY [facility] Last Admin: 11/07/16 09:50 Dose: 325 mg Piperacillin Sod/Tazobactam Sod (Zosyn 2.25 Gm Iv Premix) 2.25 gm in 50 mls @ 100 mls/hr IVPB Q8H [facility] Last Admin: 11/08/16 04:21 Dose: 100 mls/hr Vancomycin HCl 1 gm/ Sodium (Chloride) 250 mls @ 166.7 mls/hr IVPB MWF [facility] Last Admin: 11/07/16 10:30 Dose: Not Given Insulin Glargine (Lantus) 20 unit SC HS [facility] Last Admin: 11/07/16 21:45 Dose: 20 units Insulin Human Regular (Novolin R) 0 unit SC ACHS [facility] PRN Reason: Protocol Last Admin: 11/08/16 08:42 Dose: Not Given Losartan Potassium (Cozaar) 100 mg PO DAILY@1800 [facility] Morphine Sulfate (Morphine) 2 mg SC Q6H PRN PRN Reason: Pain Last Admin: 11/06/16 21:25 Dose: 2 mg Rosuvastatin Calcium (Crestor) 2.5 mg PO HS [facility] Last Admin: 11/06/16 22:52 Dose: Not Given Vancomycin HCl (Vancocin (Oral Or Rectal Use)) 125 mg PO BID [facility] Last Admin: 11/07/16 19:09 Dose: 125 mg - Labs Labs: 11/08/16 06:02 11/08/16 06:02 PT 11.0 SECONDS (9.7-12.2) 11/07/16 17:26 INR 1.0 11/07/16 17:26 APTT 27 SECONDS (21-34) 10/26/16 18:15 - Constitutional Appears: No Acute Distress, Chronically Ill - Head Exam Head Exam: NORMAL INSPECTION - Eye Exam Eye Exam: EOMI, Normal appearance - Neck Exam Neck Exam: Normal Inspection. absent: Tenderness - Respiratory Exam Respiratory Exam: Clear to Ausculation Bilateral, NORMAL BREATHING PATTERN - Cardiovascular Exam Cardiovascular Exam: REGULAR RHYTHM, +S1 - GI/Abdominal Exam GI & Abdominal Exam: Soft. absent: Tenderness - Extremities Exam Extremities Exam: Calf Tenderness, Tenderness - Neurological Exam Neurological Exam: Alert, CN II-XII Intact - Psychiatric Exam Psychiatric exam: Anxious - Skin Skin Exam: Dry, Warm Assessment and Plan (1) Type 2 diabetes mellitus with diabetic nephropathy Status: Acute (2) Chronic anemia Status: Acute (3) Foot infection Status: Acute (4) Lower limb ischemia Status: Acute (5) ESRD on peritoneal dialysis Status: Acute (6) Hypertension Status: Acute - Assessment and Plan (Free Text) Plan: Fem-pop bypass surgery today Continue PD until surgery, then resume Monitor BP BS control as per medicine IV ABs as per ID
[2016-11-08] MEDS: Vancomycin 125 MG/5 ML SOLN (ORAL/RECTAL) PO SCH ×2 (10:59→12:35)
[2016-11-08] MEDS ORDERED: (Lantus) Insulin Glargine, Recombinant SC SCH (17:23)
--- NOTE | 2016-11-08 17:25 | CP.PCM.PN ---
Subjective - Date & Time of Evaluation Date of Evaluation: 11/08/16 Time of Evaluation: 17:24 - Subjective Subjective: pts blood sugar elevated mostly because of the PD increased with lantus no other complications with high sugar no need for iv insulin drip will increase the lantus will continue coverage Objective - Vital Signs/Intake and Output Vital Signs (last 24 hours): Temp Pulse Resp BP Pulse Ox 98.5 F 80 84 H 128/64 96 11/08/16 07:00 11/08/16 07:00 11/08/16 15:11 11/08/16 15:11 11/08/16 07:00 Intake and Output: 11/08/16 11/08/16 06:59 18:59 Intake Total 350 Balance 350 - Medications Medications: Current Medications Amlodipine Besylate (Norvasc) 10 mg PO DAILY [facility] Last Admin: 11/08/16 12:29 Dose: 10 mg Aspirin (Ecotrin) 81 mg PO DAILY [facility] Last Admin: 11/08/16 12:29 Dose: 81 mg Calcium Acetate (Phoslo) 2,668 mg PO TIDCC [facility] Last Admin: 11/08/16 12:34 Dose: 2,668 mg Carvedilol (Coreg) 12.5 mg PO BID [facility] Last Admin: 11/08/16 12:29 Dose: 12.5 mg Diphenhydramine HCl (Benadryl) 50 mg PO ONCE ONE Stop: 11/09/16 10:31 Epoetin Alec (Procrit) 10,000 [place] [facility] [place] Last Admin: 11/07/16 15:46 Dose: Not Given Ferrous Sulfate (Feosol) 325 mg PO DAILY [facility] Last Admin: 11/08/16 12:29 Dose: 325 mg Piperacillin Sod/Tazobactam Sod (Zosyn 2.25 Gm Iv Premix) 2.25 gm in 50 mls @ 100 mls/hr IVPB Q8H [facility] Last Admin: 11/08/16 12:34 Dose: 100 mls/hr Vancomycin HCl 1 gm/ Sodium (Chloride) 250 mls @ 166.7 mls/hr IVPB MWF [facility] Last Admin: 11/07/16 10:30 Dose: Not Given Insulin Glargine (Lantus) 30 unit SC HS [facility] Insulin Glargine (Lantus) 10 unit SC QAM [facility] Insulin Human Regular (Novolin R) 0 unit SC ACHS [facility] PRN Reason: Protocol Last Admin: 11/08/16 12:34 Dose: Not Given Losartan Potassium (Cozaar) 100 mg PO DAILY@1800 [facility] Morphine Sulfate (Morphine) 2 mg SC Q6H PRN PRN Reason: Pain Last Admin: 11/06/16 21:25 Dose: 2 mg Prednisone (Prednisone Tab) 10 mg PO BID [facility] Rosuvastatin Calcium (Crestor) 2.5 mg PO HS [facility] Last Admin: 11/06/16 22:52 Dose: Not Given Vancomycin HCl (Vancocin (Oral Or Rectal Use)) 125 mg PO BID [facility] Last Admin: 11/08/16 12:35 Dose: 125 mg - Labs Labs: 11/08/16 06:02 11/08/16 06:02 PT 11.0 SECONDS (9.7-12.2) 11/07/16 17:26 INR 1.0 11/07/16 17:26 APTT 27 SECONDS (21-34) 10/26/16 18:15 Assessment and Plan (1) Foot infection Status: Acute (2) Lower limb ischemia Status: Acute (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
[2016-11-08] MEDS ORDERED: Heparin25000 units/250ml 1/2NS 25,000 UNITS/250 ML BAG IV SCH (20:02)
[2016-11-08] MEDS: Rosuvastatin Calcium 2.5 mg Tab PO SCH (22:36)
[2016-11-09] MEDS: (Novolin R) Insulin Human Regular 100 units/ml vial SC SCH ×6 (01:44→21:35)
[2016-11-09] MEDS: Piperacill/Tazo 2.25gm in Dex 2.25 GM/50 ML BAG IVPB SCH ×3 (05:18→19:54)
[2016-11-09] MEDS: (Lantus) Insulin Glargine, Recombinant SC SCH ×3 (08:05→22:00)
[2016-11-09] MEDS: EPOETIN ALFA 10,000 UNIT/ML ML SC SCH ×2 (10:05→12:52)
[2016-11-09] MEDS: Vancomycin 125 MG/5 ML SOLN (ORAL/RECTAL) PO SCH ×2 (10:05→12:56)
[2016-11-09] MEDS ORDERED: Iodixanol 320 MG/ML 100 ML BOTTLE IV ONE (10:41)
--- NOTE | 2016-11-09 11:33 | RAD ---
HISTORY: numbness/pain on left shoulder COMPARISON: No prior. FINDINGS: LUNGS: No active pulmonary disease. PLEURA: No significant pleural effusion identified, no pneumothorax apparent. CARDIOVASCULAR: Normal. OSSEOUS STRUCTURES: Globular calcification adjacent to greater tuberosity of right proximal humerus consistent with calcific tendinitis. VISUALIZED UPPER ABDOMEN: Normal. OTHER FINDINGS: None. IMPRESSION: No active disease.
[2016-11-09] MEDS: Bacitracin 500 Units/gm Oint Foilpak UD TOP SCH (12:20)
--- NOTE | 2016-11-09 12:56 | CP.PCM.PN ---
Subjective - Date & Time of Evaluation Date of Evaluation: 11/09/16 Time of Evaluation: 12:54 - Subjective Subjective: Pt seen at bedside for f/u right hallux ulcer. Bypass postponed. No acute change in status of digit. Cont with IV abx as per ID. Will cont to monitor foot. Possible bypass on Saturday. Objective - Vital Signs/Intake and Output Vital Signs (last 24 hours): Temp Pulse Resp BP Pulse Ox 98.1 F 83 17 125/75 97 11/09/16 07:20 11/09/16 07:20 11/09/16 07:20 11/09/16 10:11 11/09/16 07:20 Intake and Output: 11/09/16 11/09/16 06:59 18:59 Intake Total 50 Balance 50 - Medications Medications: Current Medications Amlodipine Besylate (Norvasc) 10 mg PO DAILY [facility] Last Admin: 11/09/16 12:52 Dose: 10 mg Aspirin (Ecotrin) 81 mg PO DAILY [facility] Last Admin: 11/09/16 12:51 Dose: 81 mg Bacitracin (Bacitracin) 1 ea TOP DAILY [facility] Last Admin: 11/09/16 12:20 Dose: 1 ea Calcium Acetate (Phoslo) 2,668 mg PO TIDCC [facility] Last Admin: 11/09/16 12:18 Dose: 2,668 mg Carvedilol (Coreg) 12.5 mg PO BID [facility] Last Admin: 11/09/16 10:11 Dose: 12.5 mg Epoetin Alec (Procrit) 10,000 unit SC MWF [facility] Last Admin: 11/09/16 12:52 Dose: 10,000 unit Ferrous Sulfate (Feosol) 325 mg PO DAILY [facility] Last Admin: 11/09/16 12:51 Dose: 325 mg Piperacillin Sod/Tazobactam Sod (Zosyn 2.25 Gm Iv Premix) 2.25 gm in 50 mls @ 100 mls/hr IVPB Q8H [facility] Last Admin: 11/09/16 12:53 Dose: 100 mls/hr Vancomycin HCl 1 gm/ Sodium (Chloride) 250 mls @ 166.7 mls/hr IVPB MWF [facility] Last Admin: 11/09/16 10:05 Dose: Not Given Insulin Glargine (Lantus) 30 unit SC HS [facility] Last Admin: 11/08/16 22:34 Dose: 30 units Insulin Glargine (Lantus) 10 unit SC QAM [facility] Last Admin: 11/09/16 11:09 Dose: Not Given Insulin Human Regular (Novolin R) 0 unit SC ACHS [facility] PRN Reason: Protocol Last Admin: 11/09/16 12:19 Dose: Not Given Losartan Potassium (Cozaar) 100 mg PO DAILY@1800 [facility] Last Admin: 11/08/16 17:52 Dose: 100 mg Morphine Sulfate (Morphine) 2 mg SC Q6H PRN PRN Reason: Pain Last Admin: 11/06/16 21:25 Dose: 2 mg Rosuvastatin Calcium (Crestor) 2.5 mg PO HS [facility] Last Admin: 11/08/16 22:36 Dose: Not Given Rosuvastatin Calcium (Crestor) 10 mg PO HS [facility] Last Admin: 11/08/16 22:35 Dose: Not Given Vancomycin HCl (Vancocin (Oral Or Rectal Use)) 125 mg PO DAILY [facility] Stop: 11/10/16 10:01 Last Admin: 11/09/16 10:05 Dose: Not Given - Labs Labs: 11/08/16 06:02 11/08/16 06:02 PT 11.0 SECONDS (9.7-12.2) 11/07/16 17:26 INR 1.0 11/07/16 17:26 APTT 27 SECONDS (21-34) 10/26/16 18:15
--- NOTE | 2016-11-09 13:17 | CP.PCM.PN ---
Subjective - Date & Time of Evaluation Date of Evaluation: 11/09/16 Time of Evaluation: 13:14 - Subjective Subjective: events noted; bypass on hold due to EKG changes and now with elevated TNIs BP better controlled BSs starting to improve PD going well right toe ischemia/ gangrene same Objective - Vital Signs/Intake and Output Vital Signs (last 24 hours): Temp Pulse Resp BP Pulse Ox 98.1 F 83 17 125/75 97 11/09/16 07:20 11/09/16 07:20 11/09/16 07:20 11/09/16 10:11 11/09/16 07:20 Intake and Output: 11/09/16 11/09/16 06:59 18:59 Intake Total 50 Balance 50 - Medications Medications: Current Medications Amlodipine Besylate (Norvasc) 10 mg PO DAILY [facility] Last Admin: 11/09/16 12:52 Dose: 10 mg Aspirin (Ecotrin) 81 mg PO DAILY [facility] Last Admin: 11/09/16 12:51 Dose: 81 mg Bacitracin (Bacitracin) 1 ea TOP DAILY [facility] Last Admin: 11/09/16 12:20 Dose: 1 ea Calcium Acetate (Phoslo) 2,668 mg PO TIDCC [facility] Last Admin: 11/09/16 12:18 Dose: 2,668 mg Carvedilol (Coreg) 12.5 mg PO BID [facility] Last Admin: 11/09/16 10:11 Dose: 12.5 mg Epoetin Alec (Procrit) 10,000 unit SC MWF [facility] Last Admin: 11/09/16 12:52 Dose: 10,000 unit Ferrous Sulfate (Feosol) 325 mg PO DAILY [facility] Last Admin: 11/09/16 12:51 Dose: 325 mg Piperacillin Sod/Tazobactam Sod (Zosyn 2.25 Gm Iv Premix) 2.25 gm in 50 mls @ 100 mls/hr IVPB Q8H [facility] Last Admin: 11/09/16 12:53 Dose: 100 mls/hr Vancomycin HCl 1 gm/ Sodium (Chloride) 250 mls @ 166.7 mls/hr IVPB MWF [facility] Last Admin: 11/09/16 10:05 Dose: Not Given Insulin Glargine (Lantus) 30 unit SC HS [facility] Last Admin: 11/08/16 22:34 Dose: 30 units Insulin Glargine (Lantus) 10 unit SC QAM [facility] Last Admin: 11/09/16 11:09 Dose: Not Given Insulin Human Regular (Novolin R) 0 unit SC ACHS [facility] PRN Reason: Protocol Last Admin: 11/09/16 12:19 Dose: Not Given Losartan Potassium (Cozaar) 100 mg PO DAILY@1800 [facility] Last Admin: 11/08/16 17:52 Dose: 100 mg Morphine Sulfate (Morphine) 2 mg SC Q6H PRN PRN Reason: Pain Last Admin: 11/06/16 21:25 Dose: 2 mg Rosuvastatin Calcium (Crestor) 2.5 mg PO HS [facility] Last Admin: 11/08/16 22:36 Dose: Not Given Rosuvastatin Calcium (Crestor) 10 mg PO HS [facility] Last Admin: 11/08/16 22:35 Dose: Not Given Vancomycin HCl (Vancocin (Oral Or Rectal Use)) 125 mg PO DAILY [facility] Stop: 11/10/16 10:01 Last Admin: 11/09/16 12:56 Dose: 125 mg - Labs Labs: 11/08/16 06:02 11/08/16 06:02 PT 11.0 SECONDS (9.7-12.2) 11/07/16 17:26 INR 1.0 11/07/16 17:26 APTT 27 SECONDS (21-34) 10/26/16 18:15 - Constitutional Appears: No Acute Distress, Chronically Ill - Head Exam Head Exam: ATRAUMATIC, NORMAL INSPECTION - Eye Exam Eye Exam: EOMI, Normal appearance - Neck Exam Neck Exam: Normal Inspection. absent: Tenderness - Respiratory Exam Respiratory Exam: Clear to Ausculation Bilateral, NORMAL BREATHING PATTERN - Cardiovascular Exam Cardiovascular Exam: REGULAR RHYTHM, +S1 - GI/Abdominal Exam GI & Abdominal Exam: Soft. absent: Tenderness - Extremities Exam Extremities Exam: Normal Inspection. absent: Tenderness - Neurological Exam Neurological Exam: Alert, CN II-XII Intact - Skin Skin Exam: Dry, Warm Assessment and Plan (1) Type 2 diabetes mellitus with diabetic nephropathy Status: Acute (2) Chronic anemia Status: Acute (3) Foot infection Status: Acute (4) Lower limb ischemia Status: Acute (5) ESRD on peritoneal dialysis Status: Acute (6) Hypertension Status: Acute - Assessment and Plan (Free Text) Plan: Increase EPO dose Repeat chemistries might need cardiac cath Monitor BP- same meds for now Same PD
[2016-11-09] MEDS: Epoetin Alfa Dialysis 3000 UNIT/ML Inj IV SCH (14:48)
--- NOTE | 2016-11-09 17:37 | CARD ---
APPROVED REPORT EKG Measurement Heart [id number] <Conclusion> Sinus tachycardia Marked ST abnormality, possible inferior subendocardial injury Abnormal ECG
--- NOTE | 2016-11-09 20:48 | CP.PCM.PN ---
Subjective - Date & Time of Evaluation Date of Evaluation: 11/09/16 Time of Evaluation: 13:00 - Subjective Subjective: Patient had episode of chest pain/shoulder pain yesterday Subsequent work up revealed elevated Troponin 1.2 Patient braught to labor contractor for cardiac cath Patient refused cath and does not want to undergo any other procedures other than Vascular bypass Patient understands the risks include but not limited to cardiac arrest and Patient also refusing IV Heparin. Currently chest pain free and comfortable Physical Examination - Constitutional Appears: Older Than Stated Age, Chronically Ill - Head Exam Head Exam: ATRAUMATIC, NORMOCEPHALIC - Eye Exam Eye Exam: EOMI, Normal appearance Pupil Exam: NORMAL ACCOMODATION - ENT Exam ENT Exam: Mucous Membranes Moist - Respiratory Exam Respiratory Exam: Clear to Ausculation Bilateral. absent: Rales, Rhonchi, Wheezes - Cardiovascular Exam Cardiovascular Exam: REGULAR RHYTHM, +S1, +S2 - GI/Abdominal Exam GI & Abdominal Exam: Soft, Normal Bowel Sounds - Extremities Exam R toes dusky color. Gangrenous - Neurological Exam Neurological Exam: Alert, Awake - Psychiatric Exam Psychiatric exam: Normal Affect, Normal Mood Objective - Vital Signs/Intake and Output Vital Signs (last 24 hours): Temp Pulse Resp BP Pulse Ox 97.4 F L 83 20 140/73 100 11/09/16 16:00 11/09/16 16:00 11/09/16 16:00 11/09/16 19:54 11/09/16 16:00 - Medications Medications: Current Medications Amlodipine Besylate (Norvasc) 10 mg PO DAILY [facility] Last Admin: 11/09/16 12:52 Dose: 10 mg Aspirin (Ecotrin) 81 mg PO DAILY [facility] Last Admin: 11/09/16 12:51 Dose: 81 mg Bacitracin (Bacitracin) 1 ea TOP DAILY [facility] Last Admin: 11/09/16 12:20 Dose: 1 ea Calcium Acetate (Phoslo) 2,668 mg PO TIDCC [facility] Last Admin: 11/09/16 17:29 Dose: 2,668 mg Carvedilol (Coreg) 12.5 mg PO BID [facility] Last Admin: 11/09/16 19:54 Dose: 12.5 mg Clotrimazole (Lotrimin 1%) 1 gm TOP BID [facility] Epoetin Alec (Procrit) 10,000 unit SC MWF [facility] Epoetin Alec (Procrit) 3,000 unit IV [facility] Last Admin: 11/09/16 14:48 Dose: Not Given Ferrous Sulfate (Feosol) 325 mg PO DAILY [facility] Last Admin: 11/09/16 12:51 Dose: 325 mg Piperacillin Sod/Tazobactam Sod (Zosyn 2.25 Gm Iv Premix) 2.25 gm in 50 mls @ 100 mls/hr IVPB Q8H [facility] Last Admin: 11/09/16 19:54 Dose: 100 mls/hr Vancomycin HCl 1 gm/ Sodium (Chloride) 250 mls @ 166.7 mls/hr IVPB [facility] Last Admin: 11/09/16 10:05 Dose: Not Given Insulin Glargine (Lantus) 30 unit SC [facility] Last Admin: 11/08/16 22:34 Dose: 30 units Insulin Glargine (Lantus) 10 unit SC [facility] Last Admin: 11/09/16 11:09 Dose: Not Given Insulin Human Regular (Novolin R) 0 unit SC [facility] PRN Reason: Protocol Last Admin: 11/09/16 20:05 Dose: Not Given Losartan Potassium (Cozaar) 100 mg PO DAILY@1800 [facility] Last Admin: 11/09/16 17:29 Dose: 100 mg Morphine Sulfate (Morphine) 2 mg SC Q6H PRN PRN Reason: Pain Last Admin: 11/06/16 21:25 Dose: 2 mg Rosuvastatin Calcium (Crestor) 2.5 mg PO [facility] Last Admin: 11/08/16 22:36 Dose: Not Given Rosuvastatin Calcium (Crestor) 10 mg PO [facility] Last Admin: 11/08/16 22:35 Dose: Not Given Vancomycin HCl (Vancocin (Oral Or Rectal Use)) 125 mg PO DAILY [facility] Stop: 11/10/16 10:01 Last Admin: 11/09/16 12:56 Dose: 125 mg - Labs Labs: 11/08/16 06:02 11/08/16 06:02 PT 11.0 SECONDS (9.7-12.2) 11/07/16 17:26 INR 1.0 11/07/16 17:26 APTT 27 SECONDS (21-34) 10/26/16 18:15 Assessment and Plan - Assessment and Plan (Free Text) Assessment: 51F, past smoker who quitted smoking last week, with Hx of PAD, HTN/HLD, DM2, ESRD on peritoneal HD, has ischemic Right foot with increasing pain. cardiology was consulted for cardiac risk assessment for a 2 step surgical procedures (1) angio to stent LLE; (2) RLE bypass surgery. Echo and stress test conducted. 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 - pending PD fluid analysis vs cellulitis/osteomyelitis vs c.diff - vanco and zosyn - increased diarrhea, R leg ischemia - progressing Foot infection r/o osteomyelitis - from hallux to 3rd and 5th digit PAD - CTA abdomin and pelvis: bilateral diffuse arterial atherosclerotic disease; occlusion of bilateral SFA; heavy calcification of bilateral anterior and posterior tibial aa. - high likelyhood of CAD vein mapping of the bilateral LE to assess for possible graft - Due to type 4 aortic arch, bilateral lower extremity run offs not performed due to technical difficulty and pt's CKD. IDDM2 Lable sugar - due to infection and decreased kidney metabolism of insulun ESRD on PD Macrocytic anemia, chronic - pending B12, folate - defer to primary team for managing Allergy: shrimp DVT prophylaxis - heparin 5000 q8 Patient s/p Left Iliac intervention Cardiac point of view (Normal EF and stress test) but abnormal Troponins assessed as high cardiac risk for cardiac events for Vascular bypass. If the benefit outweighs the risk please proceed with the needed therapeutic surgery. Discussed with the Patient who agrees and understands the risk and would like to undergo Vascular bypass surgery for the right leg Thank you
[2016-11-09] MEDS: Rosuvastatin Calcium 2.5 mg Tab PO SCH (21:35)
[2016-11-09] MEDS: Clotrimazole 1% Cream(30 gm) TOP SCH (22:01)
[2016-11-10] MEDS: Piperacill/Tazo 2.25gm in Dex 2.25 GM/50 ML BAG IVPB SCH ×2 (05:18→11:30)
[2016-11-10] MEDS: Clotrimazole 1% Cream(30 gm) TOP SCH ×3 (06:15→18:13)
[2016-11-10] MEDS: (Novolin R) Insulin Human Regular 100 units/ml vial SC SCH ×4 (08:01→21:58)
[2016-11-10 08:49] LABS: RED CELL DISTRIBUTION WIDTH 18.6 % (11.5-14.5)
[2016-11-10 09:12] LABS: BILIRUBIN,TOTAL 0.5 mg/dL (0.2-1.3); TOTAL PROTEIN 6.5 g/dL (6.3-8.3)
[2016-11-10 09:13] LABS: CALCIUM 8.6 mg/dl (8.6-10.4); PHOSPHOROUS 6.9 mg/dL (2.5-4.5)
[2016-11-10 09:14] LABS: HEMATOCRIT 26.5 % (34.0-47.0); MAGNESIUM 2.6 mg/dL (1.6-2.3); MEAN CELL VOLUME 99.6 fL (81.0-99.0); MEAN CORPUSCULAR HEMOGLOBIN 32.2 pg (27.0-31.0); MEAN CORPUSCULAR HGB CONC 32.3 g/dL (33.0-37.0); MEAN PLATELET VOLUME 7.7 fL (7.2-11.7); WHITE BLOOD COUNT 20.2 K/uL (4.8-10.8)
[2016-11-10] MEDS: Bacitracin 500 Units/gm Oint Foilpak UD TOP SCH (09:39)
[2016-11-10] MEDS: (Lantus) Insulin Glargine, Recombinant SC SCH ×2 (09:58→21:58)
[2016-11-10] MEDS: Vancomycin 125 MG/5 ML SOLN (ORAL/RECTAL) PO SCH (09:59)
--- NOTE | 2016-11-10 12:03 | CP.PCM.PN ---
Subjective - Date & Time of Evaluation Date of Evaluation: 11/10/16 Time of Evaluation: 12:01 - Subjective Subjective: Notes reviewed Continues to have foot pain as previous No cp currently Cardiology evaluation noted Tolerating PD well, no complaints ROS 10 point negative except for above Objective - Vital Signs/Intake and Output Vital Signs (last 24 hours): Temp Pulse Resp BP Pulse Ox 98.5 F 79 20 127/63 99 11/10/16 07:36 11/10/16 08:29 11/10/16 07:36 11/10/16 09:57 11/10/16 07:36 Intake and Output: 11/10/16 11/10/16 06:59 18:59 Intake Total 120 Balance 120 - Medications Medications: Current Medications Amlodipine Besylate (Norvasc) 10 mg PO DAILY [facility] Last Admin: 11/10/16 09:57 Dose: 10 mg Aspirin (Ecotrin) 81 mg PO DAILY [facility] Last Admin: 11/10/16 09:57 Dose: 81 mg Bacitracin (Bacitracin) 1 ea TOP DAILY [facility] Last Admin: 11/10/16 09:39 Dose: Not Given Calcium Acetate (Phoslo) 2,668 mg PO TIDCC [facility] Last Admin: 11/10/16 11:52 Dose: 2,668 mg Carvedilol (Coreg) 12.5 mg PO BID [facility] Last Admin: 11/10/16 09:57 Dose: 12.5 mg Clotrimazole (Lotrimin 1%) 1 gm TOP BID [facility] Last Admin: 11/10/16 09:39 Dose: Not Given Epoetin Alec (Procrit) 10,000 unit SC [facility] Epoetin Alec (Procrit) 3,000 unit IV [facility] Last Admin: 11/09/16 14:48 Dose: Not Given Ferrous Sulfate (Feosol) 325 mg PO DAILY [facility] Last Admin: 11/10/16 09:57 Dose: 325 mg Piperacillin Sod/Tazobactam Sod (Zosyn 2.25 Gm Iv Premix) 2.25 gm in 50 mls @ 100 mls/hr IVPB Q8H [facility] Last Admin: 11/10/16 11:30 Dose: 100 mls/hr Vancomycin HCl 1 gm/ Sodium (Chloride) 250 mls @ 166.7 mls/hr IVPB [facility] Last Admin: 11/09/16 10:05 Dose: Not Given Insulin Glargine (Lantus) 10 [facility] Last Admin: 11/10/16 09:58 Dose: Not Given Insulin Glargine (Lantus) 45 unit SC [facility] Last Admin: 11/09/16 22:00 Dose: 45 unit Insulin Human Regular (Novolin R) 0 unit SC ACHS [facility] PRN Reason: Protocol Last Admin: 11/10/16 11:53 Dose: Not Given Losartan Potassium (Cozaar) 100 mg PO DAILY@1800 [facility] Last Admin: 11/09/16 17:29 Dose: 100 mg Morphine Sulfate (Morphine) 2 mg SC Q6H PRN PRN Reason: Pain Last Admin: 11/06/16 21:25 Dose: 2 mg Rosuvastatin Calcium (Crestor) 2.5 mg PO [facility] Last Admin: 11/09/16 21:35 Dose: Not Given Rosuvastatin Calcium (Crestor) 10 mg PO [facility] Last Admin: 11/09/16 21:35 Dose: Not Given - Labs Labs: 11/10/16 08:41 11/10/16 08:41 PT 11.0 SECONDS (9.7-12.2) 11/07/16 17:26 INR 1.0 11/07/16 17:26 APTT 27 SECONDS (21-34) 10/26/16 18:15 - Constitutional Appears: Well, Non-toxic - Head Exam Head Exam: ATRAUMATIC, NORMAL INSPECTION - Eye Exam Eye Exam: EOMI, Normal appearance - ENT Exam ENT Exam: Mucous Membranes Moist, Normal Oropharynx - Respiratory Exam Respiratory Exam: NORMAL BREATHING PATTERN. absent: Rhonchi, Wheezes - Cardiovascular Exam Cardiovascular Exam: REGULAR RHYTHM, +S1, +S2. absent: JVD - GI/Abdominal Exam GI & Abdominal Exam: Soft, Normal Bowel Sounds - Extremities Exam Extremities Exam: Tenderness. absent: Pedal Edema - Neurological Exam Neurological Exam: Awake, Oriented x3 Assessment and Plan (1) Foot infection Status: Acute (2) Lower limb ischemia Status: Acute (3) Anemia Status: Acute (4) Diabetes mellitus Status: Acute (5) ESRD on peritoneal dialysis Status: Acute - Assessment and Plan (Free Text) Assessment: Maintain PD as prescribed Electrolytes acceptable BP stable Encourage cardiology evaluation as suggested Pain management
--- NOTE | 2016-11-10 20:52 | CP.PCM.PN ---
Subjective - Date & Time of Evaluation Date of Evaluation: 11/10/16 Time of Evaluation: 13:00 - Subjective Subjective: Patient seen and evaluated Asleep and comfortable Trops trending down CK values consistently negative and very low suggesting Troponin leak likely due to renal failure. However severe CAD can't be ruled out in this patient Physical Examination - Constitutional Appears: Older Than Stated Age, Chronically Ill - Head Exam Head Exam: ATRAUMATIC, NORMOCEPHALIC - Eye Exam Eye Exam: EOMI, Normal appearance Pupil Exam: NORMAL ACCOMODATION - ENT Exam ENT Exam: Mucous Membranes Moist - Respiratory Exam Respiratory Exam: Clear to Ausculation Bilateral. absent: Rales, Rhonchi, Wheezes - Cardiovascular Exam Cardiovascular Exam: REGULAR RHYTHM, +S1, +S2 - GI/Abdominal Exam GI & Abdominal Exam: Soft, Normal Bowel Sounds - Extremities Exam R toes dusky color. Gangrenous - Neurological Exam Neurological Exam: Normal - Psychiatric Exam Psychiatric exam: Normal Affect, Normal Mood Objective - Vital Signs/Intake and Output Vital Signs (last 24 hours): Temp Pulse Resp BP Pulse Ox 98.3 F 85 20 157/7 H 98 11/10/16 15:00 11/10/16 18:59 11/10/16 15:00 11/10/16 18:11 11/10/16 15:00 - Medications Medications: Current Medications Amlodipine Besylate (Norvasc) 10 mg PO DAILY [facility] Last Admin: 11/10/16 09:57 Dose: 10 mg Aspirin (Ecotrin) 81 mg PO DAILY [facility] Last Admin: 11/10/16 09:57 Dose: 81 mg Bacitracin (Bacitracin) 1 ea TOP DAILY [facility] Last Admin: 11/10/16 09:39 Dose: Not Given Calcium Acetate (Phoslo) 2,668 mg PO TIDCC [facility] Last Admin: 11/10/16 18:00 Dose: 2,668 mg Carvedilol (Coreg) 12.5 mg PO BID [facility] Last Admin: 11/10/16 18:11 Dose: 12.5 mg Clotrimazole (Lotrimin 1%) 1 gm TOP BID [facility] Last Admin: 11/10/16 18:13 Dose: Not Given Epoetin Alec (Procrit) 10,000 unit SC [facility] Epoetin Alec (Procrit) 3,000 unit IV [facility] Last Admin: 11/09/16 14:48 Dose: Not Given Ferrous Sulfate (Feosol) 325 mg PO DAILY [facility] Last Admin: 11/10/16 09:57 Dose: 325 mg Vancomycin HCl 1 gm/ Sodium (Chloride) 250 mls @ 166.7 mls/hr IVPB [facility] Last Admin: 11/09/16 10:05 Dose: Not Given Insulin Glargine (Lantus) 10 unit SC QAM [facility] Last Admin: 11/10/16 09:58 Dose: Not Given Insulin Glargine (Lantus) 45 unit SC [facility] Last Admin: 11/09/16 22:00 Dose: 45 unit Insulin Human Regular (Novolin R) 0 unit SC ACHS [facility] PRN Reason: Protocol Last Admin: 11/10/16 17:23 Dose: Not Given Losartan Potassium (Cozaar) 100 mg PO DAILY@1800 [facility] Last Admin: 11/10/16 18:12 Dose: 100 mg Morphine Sulfate (Morphine) 2 mg SC Q6H PRN PRN Reason: Pain Last Admin: 11/06/16 21:25 Dose: 2 mg Rosuvastatin Calcium (Crestor) 2.5 mg PO [facility] Last Admin: 11/09/16 21:35 Dose: Not Given Rosuvastatin Calcium (Crestor) 10 mg PO [facility] Last Admin: 11/09/16 21:35 Dose: Not Given - Labs Labs: 11/10/16 08:41 11/10/16 08:41 PT 11.0 SECONDS (9.7-12.2) 11/07/16 17:26 INR 1.0 11/07/16 17:26 APTT 27 SECONDS (21-34) 10/26/16 18:15 Assessment and Plan - Assessment and Plan (Free Text) Assessment: 51F, past smoker who quitted smoking last week, with Hx of PAD, HTN/HLD, DM2, ESRD on peritoneal HD, has ischemic Right foot with increasing pain. cardiology was consulted for cardiac risk assessment for a 2 step surgical procedures (1) angio to stent LLE; (2) RLE bypass surgery. Echo and stress test conducted. 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 - pending PD fluid analysis vs cellulitis/osteomyelitis vs c.diff - vanco and zosyn - increased diarrhea, R leg ischemia - progressing Foot infection r/o osteomyelitis - from hallux to 3rd and 5th digit PAD - CTA abdomin and pelvis: bilateral diffuse arterial atherosclerotic disease; occlusion of bilateral SFA; heavy calcification of bilateral anterior and posterior tibial aa. - high likelyhood of CAD vein mapping of the bilateral LE to assess for possible graft - Due to type 4 aortic arch, bilateral lower extremity run offs not performed due to technical difficulty and pt's CKD. IDDM2 Lable sugar - due to infection and decreased kidney metabolism of insulun ESRD on PD Macrocytic anemia, chronic - pending B12, folate - defer to primary team for managing Allergy: shrimp DVT prophylaxis - heparin 5000 q8 Patient s/p Left Iliac intervention Cardiac point of view (Normal EF and stress test) but abnormal Troponins assessed as high cardiac risk for cardiac events for Vascular bypass. If the benefit outweighs the risk please proceed with the needed therapeutic surgery. Discussed with the Patient who agrees and understands the risk and would like to undergo Vascular bypass surgery for the right leg Thank you
[2016-11-10] MEDS: Rosuvastatin Calcium 2.5 mg Tab PO SCH (21:57)
[2016-11-10] MEDS: Acyclovir 5% Oint (15 gm) EXT SCH (21:59)
[2016-11-11] MEDS: Acyclovir 5% Oint (15 gm) EXT SCH ×8 (00:12→21:50)
--- NOTE | 2016-11-11 02:01 | CARD ---
APPROVED REPORT EKG Measurement Heart [id number] [place] [id number] <Conclusion> Normal sinus rhythm Nonspecific ST and T wave abnormality Prolonged QT Abnormal ECG
--- NOTE | 2016-11-11 02:06 | CARD ---
APPROVED REPORT EKG Measurement Heart [id number] [place] [id number] <Conclusion> Normal sinus rhythm Left ventricular hypertrophy with repolarization abnormality Abnormal ECG
[2016-11-11] MEDS: (Novolin R) Insulin Human Regular 100 units/ml vial SC SCH ×5 (08:05→22:49)
[2016-11-11 09:17] LABS: POTASSIUM 3.2 mmol/L (3.6-5.2)
[2016-11-11 09:19] LABS: ALB/GLOB RATIO 1.1 (1.0-2.1); BILIRUBIN,TOTAL 0.5 mg/dL (0.2-1.3); TOTAL PROTEIN 6.2 g/dL (6.3-8.3)
[2016-11-11 09:20] LABS: CALCIUM 8.4 mg/dl (8.6-10.4)
--- NOTE | 2016-11-11 10:00 | CP.PCM.PN ---
Subjective - Date & Time of Evaluation Date of Evaluation: 11/11/16 Time of Evaluation: 09:52 - Subjective Subjective: Vascular Surgery note: Dr. Clark Pt seen and examined at bedside. Pt resting comfortably. Previously scheduled for fem-pop bypass 11/08 and 11/09. Post-poned due to high blood sugar and positive cardiac markers respectively. Pt will need cardiac cath before bypass surgery but is currently refusing. Objective - Vital Signs/Intake and Output Vital Signs (last 24 hours): Temp Pulse Resp BP Pulse Ox 98.9 F 86 20 126/79 100 11/11/16 08:22 11/11/16 08:22 11/11/16 08:22 11/11/16 08:22 11/11/16 08:22 Intake and Output: 11/11/16 11/11/16 06:59 18:59 Intake Total 420 Balance 420 - Medications Medications: Current Medications Acyclovir (Zovirax 5% Oint) 0 gm EXT Q3H [facility] Last Admin: 11/11/16 06:15 Dose: 1 applic Amlodipine Besylate (Norvasc) 10 mg PO DAILY [facility] Last Admin: 11/10/16 09:57 Dose: 10 mg Aspirin (Ecotrin) 81 mg PO DAILY [facility] Last Admin: 11/10/16 09:57 Dose: 81 mg Bacitracin (Bacitracin) 1 ea TOP DAILY [facility] Last Admin: 11/10/16 09:39 Dose: Not Given Calcium Acetate (Phoslo) 2,668 mg PO TIDCC [facility] Last Admin: 11/10/16 18:00 Dose: 2,668 mg Carvedilol (Coreg) 12.5 mg PO BID [facility] Last Admin: 11/10/16 18:11 Dose: 12.5 mg Clotrimazole (Lotrimin 1%) 1 gm TOP BID [facility] Last Admin: 11/10/16 18:13 Dose: Not Given Epoetin Alec (Procrit) 10,000 unit SC [facility] Epoetin Alec (Procrit) 3,000 unit IV [facility] Last Admin: 11/09/16 14:48 Dose: Not Given Ferrous Sulfate (Feosol) 325 mg PO DAILY [facility] Last Admin: 11/10/16 09:57 Dose: 325 mg Vancomycin HCl 1 gm/ Sodium (Chloride) 250 mls @ 166.7 mls/hr IVPB [facility] Last Admin: 11/09/16 10:05 Dose: Not Given Insulin Glargine (Lantus) 10 unit SC QAM [facility] Last Admin: 11/10/16 09:58 Dose: Not Given Insulin Glargine (Lantus) 45 unit SC HS [facility] Last Admin: 11/10/16 21:58 Dose: 45 unit Insulin Human Regular (Novolin R) 0 unit SC ACHS [facility] PRN Reason: Protocol Last Admin: 11/10/16 21:58 Dose: 2 unit Losartan Potassium (Cozaar) 100 mg PO DAILY@1800 [facility] Last Admin: 11/10/16 18:12 Dose: 100 mg Morphine Sulfate (Morphine) 2 mg SC Q6H PRN PRN Reason: Pain Last Admin: 11/06/16 21:25 Dose: 2 mg Rosuvastatin Calcium (Crestor) 2.5 mg PO [facility] Last Admin: 11/10/16 21:57 Dose: 2.5 mg Rosuvastatin Calcium (Crestor) 10 mg PO [facility] Last Admin: 11/10/16 21:57 Dose: 10 mg Saccharomyces Boulardii (Florastor) 250 mg PO TID [facility] - Labs Labs: 11/10/16 08:41 11/11/16 07:11 PT 11.0 SECONDS (9.7-12.2) 11/07/16 17:26 INR 1.0 11/07/16 17:26 APTT 27 SECONDS (21-34) 10/26/16 18:15 - Constitutional Appears: No Acute Distress - Respiratory Exam Respiratory Exam: absent: Accessory Muscle Use, Respiratory Distress - GI/Abdominal Exam GI & Abdominal Exam: Soft. absent: Distended, Tenderness - Extremities Exam Additional comments: b/l gangrene of first toe - Skin Skin Exam: Dry, Intact, Normal Color, Warm Assessment and Plan - Assessment and Plan (Free Text) Assessment: 51F w/ b/l LE PAD Plan: s/p angiography of left iliac right fem-pop bypass postponed until after cardiac cath, but patient currently refusing further recs discuss with Dr Eduardo Lopez, PGY-1
[2016-11-11] MEDS: Bacitracin 500 Units/gm Oint Foilpak UD TOP SCH (10:19)
[2016-11-11] MEDS: Saccharomyces Boulardi 250 mg Cap PO SCH ×3 (10:19→17:23)
[2016-11-11] MEDS: Clotrimazole 1% Cream(30 gm) TOP SCH ×2 (10:21→17:24)
[2016-11-11] MEDS: (Lantus) Insulin Glargine, Recombinant SC SCH ×2 (10:21→21:49)
--- NOTE | 2016-11-11 12:09 | CP.PCM.PN ---
Subjective - Date & Time of Evaluation Date of Evaluation: 11/11/16 Time of Evaluation: 11:30 - Subjective Subjective: PODIATRY PROGRESS NOTE DR. ALDRICH: 51 yo female pt seen at bedside this morning for f/u of right hallux ulceration. Pt seen resting comfortably in bed at time of visit, appears groggy but fully arousable and oriented. Pt says that she may be having a cardiac procedure tomorrow. Does complain of some pain to the right hallux today. Also states that her left hallux toenail is loosening. Denies f/n/v/c/sob/cp at this time. Objective - Vital Signs/Intake and Output Vital Signs (last 24 hours): Temp Pulse Resp BP Pulse Ox 98.9 F 86 20 126/79 100 11/11/16 08:22 11/11/16 08:22 11/11/16 08:22 11/11/16 08:22 11/11/16 08:22 Intake and Output: 11/11/16 11/11/16 06:59 18:59 Intake Total 420 Balance 420 - Medications Medications: Current Medications Acyclovir (Zovirax 5% Oint) 0 gm EXT Q3H [facility] Last Admin: 11/11/16 09:30 Dose: 1 applic Amlodipine Besylate (Norvasc) 10 mg PO DAILY [facility] Last Admin: 11/11/16 10:20 Dose: Not Given Aspirin (Ecotrin) 81 mg PO DAILY [facility] Last Admin: 11/11/16 10:20 Dose: 81 mg Bacitracin (Bacitracin) 1 ea TOP DAILY [facility] Last Admin: 11/11/16 10:19 Dose: 1 ea Calcium Acetate (Phoslo) 2,668 mg PO TIDCC [facility] Last Admin: 11/11/16 11:45 Dose: 2,668 mg Carvedilol (Coreg) 12.5 mg PO BID [facility] Last Admin: 11/11/16 10:20 Dose: Not Given Clotrimazole (Lotrimin 1%) 1 gm TOP BID [facility] Last Admin: 11/11/16 10:21 Dose: Not Given Epoetin Alec (Procrit) 10,000 unit SC MWF [facility] Epoetin Alec (Procrit) 3,000 unit IV MWF [facility] Last Admin: 11/09/16 14:48 Dose: Not Given Ferrous Sulfate (Feosol) 325 mg PO DAILY [facility] Last Admin: 11/11/16 10:19 Dose: 325 mg Vancomycin HCl 1 gm/ Sodium (Chloride) 250 mls @ 166.7 mls/hr IVPB MWF [facility] Last Admin: 11/09/16 10:05 Dose: Not Given Insulin Glargine (Lantus) 10 unit SC QAM [facility] Last Admin: 11/11/16 10:21 Dose: Not Given Insulin Glargine (Lantus) 45 unit SC HS [facility] Last Admin: 11/10/16 21:58 Dose: 45 unit Insulin Human Regular (Novolin R) 0 unit SC ACHS [facility] PRN Reason: Protocol Last Admin: 11/11/16 11:46 Dose: Not Given Losartan Potassium (Cozaar) 100 mg PO DAILY@1800 [facility] Last Admin: 11/10/16 18:12 Dose: 100 mg Morphine Sulfate (Morphine) 2 mg SC Q6H PRN PRN Reason: Pain Last Admin: 11/06/16 21:25 Dose: 2 mg Rosuvastatin Calcium (Crestor) 2.[address] [facility] Last Admin: 11/10/16 21:57 Dose: 2.5 mg Rosuvastatin Calcium (Crestor) [address] [facility] Last Admin: 11/10/16 21:57 Dose: 10 mg Saccharomyces Boulardii (Florastor) 250 mg PO TID [facility] Last Admin: 11/11/16 10:19 Dose: 250 mg - Labs Labs: 11/10/16 08:41 11/11/16 07:11 PT 11.0 SECONDS (9.7-12.2) 11/07/16 17:26 INR 1.0 11/07/16 17:26 APTT 27 SECONDS (21-34) 10/26/16 18:15 - Constitutional Appears: Non-toxic, No Acute Distress - Extremities Exam Additional comments: DERMATOLOGIC: Right foot hallux is ischemic with dusky discoloration, subcutaneous blistering , moderate drainage from first interspace with small opening in the skin. Hyperpigmenation of lesser digits as well. Left hallux has mild hyperpigmentation and hallucal toenail appears to be lysing somewhat from proximal border VASCULAR: DP/PT pulses non palpable, skin is the right foot is slightly cool NEUROLOGIC: Gross sensation, motor function intact ORTHOPEDIC: Pain on palpation to the right forefoot - Neurological Exam Neurological Exam: Alert, Awake, Oriented x3 - Psychiatric Exam Psychiatric exam: Normal Affect, Normal Mood Assessment and Plan - Assessment and Plan (Free Text) Assessment: 51 year old female with right foot ischemic hallux Plan: Patient S&E at bedside Plan discussed with attending Dr. Aldrich Labs and vitals reviewed Per surgery team, pt is for cardiac cath prior to fem-pop bypass, however pt is refusing No foot dressing needed at this time Podiatry will continue to follow while patient remains in house.
--- NOTE | 2016-11-11 13:17 | CP.PCM.PN ---
Subjective - Date & Time of Evaluation Date of Evaluation: 11/11/16 Time of Evaluation: 08:00 - Subjective Subjective: for cardiac cath prior to fem-pop bypass ISCHEMIC CHANGES TO RIGHT FOOT IV ANTIBIOTICS ON HOLD C/O LBM Objective - Vital Signs/Intake and Output Vital Signs (last 24 hours): Temp Pulse Resp BP Pulse Ox 98.9 F 86 20 126/79 100 11/11/16 08:22 11/11/16 08:22 11/11/16 08:22 11/11/16 08:22 11/11/16 08:22 Intake and Output: 11/11/16 11/11/16 06:59 18:59 Intake Total 420 Balance 420 - Medications Medications: Current Medications Acyclovir (Zovirax 5% Oint) 0 gm EXT Q3H [facility] Last Admin: 11/11/16 12:22 Dose: 1 applic Amlodipine Besylate (Norvasc) 10 mg PO DAILY [facility] Last Admin: 11/11/16 10:20 Dose: Not Given Aspirin (Ecotrin) 81 mg PO DAILY [facility] Last Admin: 11/11/16 10:20 Dose: 81 mg Bacitracin (Bacitracin) 1 ea TOP DAILY [facility] Last Admin: 11/11/16 10:19 Dose: 1 ea Calcium Acetate (Phoslo) 2,668 mg PO TIDCC [facility] Last Admin: 11/11/16 11:45 Dose: 2,668 mg Carvedilol (Coreg) 12.5 mg PO BID [facility] Last Admin: 11/11/16 10:20 Dose: Not Given Clotrimazole (Lotrimin 1%) 1 gm TOP BID [facility] Last Admin: 11/11/16 10:21 Dose: Not Given [facility]poetin [facility]c ([facility]) [facility] Epoetin Alec (Procrit) 3,000 unit IV MWF [facility] Last Admin: 11/09/16 14:48 Dose: Not Given Ferrous Sulfate (Feosol) 325 mg PO DAILY [facility] Last Admin: 11/11/16 10:19 Dose: 325 mg Vancomycin HCl 1 gm/ Sodium (Chloride) 250 mls @ 166.7 mls/hr IVPB MWF [facility] Last Admin: 11/09/16 10:05 Dose: Not Given Insulin [facility] ([facility]us) [facility] Last Admin: 11/11/16 10:21 Dose: Not Given Insulin Glargine (Lantus) 45 unit SC [facility] Last Admin: 11/10/16 21:58 Dose: 45 unit Insulin Human Regular (Novolin R) 0 unit SC ACHS [facility] PRN Reason: Protocol Last Admin: 11/11/16 11:46 Dose: Not Given Losartan Potassium (Cozaar) 100 mg PO DAILY@1800 [facility] Last Admin: 11/10/16 18:12 Dose: 100 mg Morphine Sulfate (Morphine) 2 mg SC Q6H PRN PRN Reason: Pain Last Admin: 11/06/16 21:25 Dose: 2 mg Petrolatum (Desitin Original) 1 gm TOP QID [facility] Rosuvastatin Calcium (Crestor) 2.5 mg PO [facility] Last Admin: 11/10/16 21:57 Dose: 2.5 mg Rosuvastatin Calcium (Crestor) 10 mg PO [facility] Last Admin: 11/10/16 21:57 Dose: 10 mg Saccharomyces Boulardii (Florastor) 250 mg PO TID [facility] Last Admin: 11/11/16 13:10 Dose: 250 mg - Labs Labs: 11/10/16 08:41 11/11/16 07:11 PT 11.0 SECONDS (9.7-12.2) 11/07/16 17:26 INR 1.0 11/07/16 17:26 APTT 27 SECONDS (21-34) 10/26/16 18:15 - Constitutional Appears: Non-toxic, Chronically Ill - Head Exam Head Exam: NORMOCEPHALIC - Eye Exam Eye Exam: PERRL. absent: Scleral icterus - ENT Exam ENT Exam: Mucous Membranes Dry - Neck Exam Neck Exam: absent: Lymphadenopathy - Respiratory Exam Respiratory Exam: Decreased Breath Sounds, Clear to Ausculation Bilateral - Cardiovascular Exam Cardiovascular Exam: REGULAR RHYTHM, +S1, +S2 - GI/Abdominal Exam GI & Abdominal Exam: Distended, Soft Assessment and Plan (1) Foot infection Status: Acute (2) Lower limb ischemia Status: Acute (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
[2016-11-11] MEDS: Zinc Oxide Topical 30 gm Tube TOP SCH ×3 (13:57→21:42)
--- NOTE | 2016-11-11 21:29 | CP.PCM.PN ---
Subjective - Date & Time of Evaluation Date of Evaluation: 11/11/16 Time of Evaluation: 21:29 - Subjective Subjective: pt suppose to go for cardiac cath pt received the lantus last night she was npo developed low sugar repeatedly, feeding started and the procedure was on hold with very fragile blood sugar. I spoke to pt and family about the low sugar. spoke also with monitoring and evaluation advisor and explained after 3.0pm pt blood sugar stablised tonight pt will get PD will give only the 20units of lantus tonight and hold the coverage. possible cath in am Objective - Vital Signs/Intake and Output Vital Signs (last 24 hours): Temp Pulse Resp BP Pulse Ox 98.2 F 96 H 20 140/80 98 11/11/16 15:53 11/11/16 16:00 11/11/16 15:53 11/11/16 17:22 11/11/16 15:53 - Medications Medications: Current Medications Acyclovir (Zovirax 5% Oint) 0 gm EXT Q3H [facility] Last Admin: 11/11/16 17:23 Dose: 1 applic Amlodipine Besylate (Norvasc) 10 mg PO DAILY [facility] Last Admin: 11/11/16 10:20 Dose: Not Given Aspirin (Ecotrin) 81 mg PO DAILY [facility] Last Admin: 11/11/16 10:20 Dose: 81 mg Bacitracin (Bacitracin) 1 ea TOP DAILY [facility] Last Admin: 11/11/16 10:19 Dose: 1 ea Calcium Acetate (Phoslo) 2,668 mg PO TIDCC [facility] Last Admin: 11/11/16 17:23 Dose: 2,668 mg Carvedilol (Coreg) 12.5 mg PO BID [facility] Last Admin: 11/11/16 17:22 Dose: 12.5 mg Clotrimazole (Lotrimin 1%) 1 gm TOP BID [facility] Last Admin: 11/11/16 17:24 Dose: 1 gm Epoetin Alec (Procrit) 10,000 unit SC [facility] Epoetin Alec (Procrit) 3,000 unit IV MWF [facility] Last Admin: 11/09/16 14:48 Dose: Not Given Ferrous Sulfate (Feosol) 325 mg PO DAILY [facility] Last Admin: 11/11/16 10:19 Dose: 325 mg Vancomycin HCl 1 gm/ Sodium (Chloride) 250 mls @ 166.7 mls/hr IVPB MWF [facility] Last Admin: 11/09/16 10:05 Dose: Not Given Insulin Glargine (Lantus) 10 unit SC [facility] Last Admin: 11/11/16 10:21 Dose: Not Given Insulin Glargine (Lantus) 45 unit SC HS [facility] Last Admin: 11/10/16 21:58 Dose: 45 unit Insulin Human Regular (Novolin R) 0 unit SC ACHS [facility] PRN Reason: Protocol Last Admin: 11/11/16 18:20 Dose: Not Given Losartan Potassium (Cozaar) 100 mg PO DAILY@1800 [facility] Last Admin: 11/11/16 17:23 Dose: 100 mg Morphine Sulfate (Morphine) 2 mg SC Q6H PRN PRN Reason: Pain Last Admin: 11/06/16 21:25 Dose: 2 mg Petrolatum (Desitin Original) 0 gm TOP QID [facility] Last Admin: 11/11/16 18:57 Dose: 1 applic Rosuvastatin Calcium (Crestor) 2.5 mg PO [facility] Last Admin: 11/10/16 21:57 Dose: 2.5 mg Rosuvastatin Calcium (Crestor) 10 mg PO 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
[2016-11-11] MEDS: Rosuvastatin Calcium 2.5 mg Tab PO SCH (21:43)
[2016-11-12] MEDS: Acyclovir 5% Oint (15 gm) EXT SCH ×9 (00:13→22:00)
--- NOTE | 2016-11-12 07:44 | CP.PCM.PN ---
Subjective - Date & Time of Evaluation Date of Evaluation: 11/12/16 Time of Evaluation: 07:44 - Subjective Subjective: cant do much until cardiac issues clarified fem pop bypass on hold Objective - Vital Signs/Intake and Output Vital Signs (last 24 hours): Temp Pulse Resp BP Pulse Ox 98.6 F 94 H 20 137/69 97 11/11/16 23:20 11/12/16 01:26 11/11/16 23:20 11/11/16 23:20 11/11/16 23:20 Intake and Output: 11/12/16 11/12/16 06:59 18:59 Intake Total 420 Balance 420 - Medications Medications: Current Medications Acyclovir (Zovirax 5% Oint) 0 gm EXT Q3H [facility] Last Admin: 11/12/16 05:24 Dose: 1 applic Amlodipine Besylate (Norvasc) 10 mg PO DAILY [facility] Last Admin: 11/11/16 10:20 Dose: Not Given Aspirin (Ecotrin) 81 mg PO DAILY [facility] Last Admin: 11/11/16 10:20 Dose: 81 mg Bacitracin (Bacitracin) 1 ea TOP DAILY [facility] Last Admin: 11/11/16 10:19 Dose: 1 ea Calcium Acetate (Phoslo) 2,668 mg PO TIDCC [facility] Last Admin: 11/11/16 17:23 Dose: 2,668 mg Carvedilol (Coreg) 12.5 mg PO BID [facility] Last Admin: 11/11/16 17:22 Dose: 12.5 mg Clotrimazole (Lotrimin 1%) 1 gm TOP BID [facility] Last Admin: 11/11/16 17:24 Dose: 1 gm Epoetin Alec (Procrit) 10,000 unit SC [facility] Epoetin Alec (Procrit) 3,000 unit IV [facility] Last Admin: 11/09/16 14:48 Dose: Not Given Ferrous Sulfate (Feosol) 325 mg PO DAILY [facility] Last Admin: 11/11/16 10:19 Dose: 325 mg Vancomycin HCl 1 gm/ Sodium (Chloride) 250 mls @ 166.7 mls/hr IVPB [facility] Last Admin: 11/09/16 10:05 Dose: Not Given Insulin Glargine (Lantus) 10 [facility] Last Admin: 11/11/16 10:21 Dose: Not Given Insulin Glargine (Lantus) 45 unit SC [facility] Last Admin: 11/11/16 21:49 Dose: 45 unit Insulin Human Regular (Novolin R) 0 unit SC ACHS [facility] PRN Reason: Protocol Last Admin: 11/11/16 22:49 Dose: Not Given Losartan Potassium (Cozaar) 100 mg PO DAILY@1800 [facility] Last Admin: 11/11/16 17:23 Dose: 100 mg Morphine Sulfate (Morphine) 2 mg SC Q6H PRN PRN Reason: Pain Last Admin: 11/12/16 00:23 Dose: 2 mg Petrolatum (Desitin Original) 0 gm TOP QID [facility] Last Admin: 11/11/16 21:42 Dose: 1 applic Rosuvastatin Calcium (Crestor) 2.5 mg PO [facility] Last Admin: 11/11/16 21:43 Dose: Not Given Rosuvastatin Calcium (Crestor) 10 mg PO [facility] Last Admin: 11/11/16 21:43 Dose: Not Given Saccharomyces Boulardii (Florastor) 250 mg PO TID [facility] Last Admin: 11/11/16 17:23 Dose: 250 mg - Labs Labs: 11/10/16 08:41 11/11/16 07:11 PT 11.0 SECONDS (9.7-12.2) 11/07/16 17:26 INR 1.0 11/07/16 17:26 APTT 27 SECONDS (21-34) 10/26/16 18:15
[2016-11-12] MEDS: (Novolin R) Insulin Human Regular 100 units/ml vial SC SCH ×3 (08:38→17:57)
[2016-11-12] MEDS ORDERED: Dextrose 50% SYRINGE Inj (50 ml) ONE ×2 (08:57→11:29)
[2016-11-12] MEDS ORDERED: Dextrose 50% SYRINGE Inj (50 ml) IV STA ×2 (08:59→11:29)
[2016-11-12] MEDS ORDERED: Dextrose 5%/0.9% NS 1,000 ML IV SCH (09:00)
[2016-11-12] MEDS: EPOETIN ALFA 10,000 UNIT/ML ML SC SCH (09:05)
[2016-11-12] MEDS: Zinc Oxide Topical 30 gm Tube TOP SCH ×4 (10:22→22:04)
[2016-11-12] MEDS: Clotrimazole 1% Cream(30 gm) TOP SCH ×2 (10:23→17:56)
[2016-11-12] MEDS: Saccharomyces Boulardi 250 mg Cap PO SCH ×4 (10:26→17:55)
[2016-11-12] MEDS: Bacitracin 500 Units/gm Oint Foilpak UD TOP SCH (10:30)
[2016-11-12] MEDS: Epoetin Alfa Dialysis 3000 UNIT/ML Inj IV SCH (12:39)
--- NOTE | 2016-11-12 13:07 | CP.PCM.PN ---
Subjective - Date & Time of Evaluation Date of Evaluation: 11/12/16 Time of Evaluation: 13:05 - Subjective Subjective: BSs fluctuating - cardiac cath held PD going well- fluid clear, negative balance BP controlled Likely to have cardiac cath in AM- will receive steroids pre - cath K low- to replete right toe #1 ischemia, gangrene still same Objective - Vital Signs/Intake and Output Vital Signs (last 24 hours): Temp Pulse Resp BP Pulse Ox 98.5 F 91 H 20 159/72 H 100 11/12/16 07:17 11/12/16 07:17 11/12/16 07:17 11/12/16 10:44 11/12/16 07:17 Intake and Output: 11/12/16 11/12/16 06:59 18:59 Intake Total 420 Balance 420 - Medications Medications: Current Medications Acyclovir (Zovirax 5% Oint) 0 gm EXT Q3H [facility] Last Admin: 11/12/16 12:55 Dose: 1 applic Amlodipine Besylate (Norvasc) 10 mg PO DAILY [facility] Last Admin: 11/12/16 12:38 Dose: 10 mg Aspirin (Ecotrin) 81 mg PO DAILY [facility] Last Admin: 11/12/16 12:37 Dose: 81 mg Bacitracin (Bacitracin) 1 ea TOP DAILY [facility] Last Admin: 11/12/16 10:30 Dose: 1 ea Calcium Acetate (Phoslo) 2,668 mg PO TIDCC [facility] Last Admin: 11/12/16 12:37 Dose: 2,668 mg Carvedilol (Coreg) 12.5 mg PO BID [facility] Last Admin: 11/12/16 10:44 Dose: 12.5 mg Clotrimazole (Lotrimin 1%) 1 gm TOP BID [facility] Last Admin: 11/12/16 10:23 Dose: 1 gm Epoetin Alec (Procrit) 10,000 unit SC MWF [facility] Last Admin: 11/12/16 09:05 Dose: 10,000 unit Epoetin Alec (Procrit) 3,000 unit IV [facility] Last Admin: 11/12/16 12:39 Dose: Not Given Ferrous Sulfate (Feosol) 325 mg PO DAILY [facility] Last Admin: 11/12/16 12:38 Dose: 325 mg Vancomycin HCl 1 gm/ Sodium (Chloride) 250 mls @ 166.7 mls/hr IVPB MWF [facility] Last Admin: 11/12/16 09:05 Dose: 166.7 mls/hr Dextrose/Sodium Chloride (Dextrose 5%/0.9% Ns 1000 Ml) 1,000 mls @ 75 mls/hr IV .[id number] [facility] Last Admin: 11/12/16 09:00 Dose: 75 mls/hr Dextrose (Dextrose 10% In Water) 1,000 mls @ 40 mls/hr IV .Q24H [facility] Last Admin: 11/12/16 09:05 Dose: 40 mls/hr Insulin Human Regular (Novolin R) 0 unit SC ACHS [facility] PRN Reason: Protocol Last Admin: 11/12/16 11:45 Dose: Not Given Losartan Potassium (Cozaar) 100 mg PO DAILY@1800 [facility] Last Admin: 11/11/16 17:23 Dose: 100 mg Petrolatum (Desitin Original) 0 gm TOP QID [facility] Last Admin: 11/12/16 10:22 Dose: 1 applic Rosuvastatin Calcium (Crestor) 2.5 mg PO [facility] Last Admin: 11/11/16 21:43 Dose: Not Given Rosuvastatin Calcium (Crestor) 10 mg PO [facility] Last Admin: 11/11/16 21:43 Dose: Not Given Saccharomyces Boulardii (Florastor) 250 mg PO TID [facility] Last Admin: 11/12/16 12:37 Dose: 250 mg - Labs Labs: 11/10/16 08:41 11/11/16 07:11 PT 11.0 SECONDS (9.7-12.2) 11/07/16 17:26 INR 1.0 11/07/16 17:26 APTT 27 SECONDS (21-34) 10/26/16 18:15 - Constitutional Appears: No Acute Distress, Chronically Ill - Head Exam Head Exam: ATRAUMATIC, NORMAL INSPECTION - Eye Exam Eye Exam: EOMI, Normal appearance - Neck Exam Neck Exam: Normal Inspection. absent: Tenderness - Respiratory Exam Respiratory Exam: Clear to Ausculation Bilateral, NORMAL BREATHING PATTERN - Cardiovascular Exam Cardiovascular Exam: REGULAR RHYTHM, +S1 - GI/Abdominal Exam GI & Abdominal Exam: Soft, Tenderness - Extremities Exam Extremities Exam: Normal Inspection. absent: Tenderness - Neurological Exam Neurological Exam: Alert, CN II-XII Intact - Skin Skin Exam: Dry, Warm Assessment and Plan (1) Type 2 diabetes mellitus with diabetic nephropathy Status: Acute (2) Chronic anemia Status: Acute (3) Foot infection Status: Acute (4) Lower limb ischemia Status: Acute (5) ESRD on peritoneal dialysis Status: Acute (6) Hypertension Status: Acute - Assessment and Plan (Free Text) Plan: Same PD IV ABs as per ID Same BP meds Replete K Cardiac cath - pending Monitor , treat hyperglycemia as per medicine
[2016-11-12] MEDS ORDERED: Potassium Chloride 20 mEq/15 ml LIQ UD PO ONE ×2 (13:15→14:46)
[2016-11-12] MEDS ORDERED: Potassium Chloride 20 mEq/15 ml LIQ UD PO SCH (13:15)
[2016-11-12] MEDS: Rosuvastatin Calcium 2.5 mg Tab PO SCH (21:52)
[2016-11-12] MEDS: (Lantus) Insulin Glargine, Recombinant SC SCH (22:22)
--- NOTE | 2016-11-12 23:13 | CP.PCM.PN ---
Subjective - Date & Time of Evaluation Date of Evaluation: 11/12/16 Time of Evaluation: 17:00 - Subjective Subjective: Cardiac cath got cancelled today due to hypoglycemia Cath tomorrow afternoon by Dr. Cordova D/W Patient and family Objective - Vital Signs/Intake and Output Vital Signs (last 24 hours): Temp Pulse Resp BP Pulse Ox 97.3 F L 83 20 154/70 H 100 11/12/16 16:07 11/12/16 16:07 11/12/16 16:07 11/12/16 17:55 11/12/16 16:07 Intake and Output: 11/12/16 11/13/16 18:59 06:59 Intake Total 1050 Balance 1050 - Medications Medications: Current Medications Acyclovir (Zovirax 5% Oint) 0 gm EXT Q3H [facility] Last Admin: 11/12/16 22:00 Dose: 1 applic Amlodipine Besylate (Norvasc) 10 mg PO DAILY [facility] Last Admin: 11/12/16 12:38 Dose: 10 mg Aspirin (Ecotrin) 81 mg PO DAILY [facility] Last Admin: 11/12/16 12:37 Dose: 81 mg Bacitracin (Bacitracin) 1 ea TOP DAILY [facility] Last Admin: 11/12/16 10:30 Dose: 1 ea Calcium Acetate (Phoslo) 2,668 mg PO TIDCC [facility] Last Admin: 11/12/16 17:55 Dose: 2,668 mg Carvedilol (Coreg) 12.5 mg PO BID [facility] Last Admin: 11/12/16 17:55 Dose: 12.5 mg Clotrimazole (Lotrimin 1%) 1 gm TOP BID [facility] Last Admin: 11/12/16 17:56 Dose: 1 gm Epoetin Alec (Procrit) 10,000 unit SC [facility] Last Admin: 11/12/16 09:05 Dose: 10,000 unit Epoetin Alec (Procrit) 3,000 unit IV [facility] Last Admin: 11/12/16 12:39 Dose: Not Given Ferrous Sulfate (Feosol) 325 mg PO DAILY [facility] Last Admin: 11/12/16 12:38 Dose: 325 mg Vancomycin HCl 1 gm/ Sodium (Chloride) 250 mls @ 166.7 mls/hr IVPB [facility] Last Admin: 11/12/16 09:05 Dose: 166.7 mls/hr Insulin Glargine (Lantus) 20 unit SC [facility] Last Admin: 11/12/16 22:22 Dose: Not Given Losartan Potassium (Cozaar) 100 mg PO DAILY@1800 [facility] Last Admin: 11/12/16 17:56 Dose: 100 mg Morphine Sulfate (Morphine) 2 mg IVP Q4 PRN PRN Reason: Pain, moderate (4-7) Last Admin: 11/12/16 21:59 Dose: 2 mg Petrolatum (Desitin Original) 0 gm TOP QID [facility] Last Admin: 11/12/16 22:04 Dose: 1 applic Rosuvastatin Calcium (Crestor) 2.5 mg PO [facility] Last Admin: 11/12/16 21:52 Dose: Not Given Rosuvastatin Calcium (Crestor) 10 mg PO [facility] Last Admin: 11/12/16 21:52 Dose: Not Given Saccharomyces Boulardii (Florastor) 250 mg PO TID [facility] Last Admin: 11/12/16 17:55 Dose: 250 mg - Labs Labs: 11/10/16 08:41 11/11/16 07:11 PT 11.0 SECONDS (9.7-12.2) 11/07/16 17:26 INR 1.0 11/07/16 17:26 APTT 27 SECONDS (21-34) 10/26/16 18:15
[2016-11-13] MEDS: Acyclovir 5% Oint (15 gm) EXT SCH ×9 (00:39→23:56)
[2016-11-13 07:35] LABS: POTASSIUM 3.8 mmol/L (3.6-5.2)
[2016-11-13 07:38] LABS: ALB/GLOB RATIO 1.1 (1.0-2.1); BILIRUBIN,TOTAL 0.5 mg/dL (0.2-1.3); CALCIUM 8.5 mg/dl (8.6-10.4); TOTAL PROTEIN 6.1 g/dL (6.3-8.3)
[2016-11-13 07:39] LABS: BASO % 0.3 % (0.0-2.0); EOS # 0.1 K/uL (0.0-0.7); HEMATOCRIT 24.4 % (34.0-47.0); LYMPH % 13.7 % (20.0-40.0); MEAN CELL VOLUME 101.4 fL (81.0-99.0); MEAN CORPUSCULAR HEMOGLOBIN 32.5 pg (27.0-31.0); MEAN CORPUSCULAR HGB CONC 32.1 g/dL (33.0-37.0); MEAN PLATELET VOLUME 8.1 fL (7.2-11.7); MONO % 6.8 % (0.0-10.0); NRBC % 0.5 % (0.0-2.0); RED CELL DISTRIBUTION WIDTH 19.5 % (11.5-14.5); WHITE BLOOD COUNT 14.3 K/uL (4.8-10.8)
[2016-11-13] MEDS: Saccharomyces Boulardi 250 mg Cap PO SCH ×3 (10:10→18:01)
[2016-11-13] MEDS: Bacitracin 500 Units/gm Oint Foilpak UD TOP SCH (10:10)
[2016-11-13] MEDS: Clotrimazole 1% Cream(30 gm) TOP SCH ×2 (10:10→19:21)
[2016-11-13] MEDS: Zinc Oxide Topical 30 gm Tube TOP SCH ×4 (10:10→21:42)
[2016-11-13] MEDS ORDERED: Dextrose 50% SYRINGE Inj (50 ml) IV STA (10:32)
--- NOTE | 2016-11-13 11:43 | CP.PCM.PN ---
Subjective - Date & Time of Evaluation Date of Evaluation: 11/13/16 Time of Evaluation: 11:41 - Subjective Subjective: seen and examined awaiting cardiac cath low blood sugars, pain at iv site. Glucagon being administered. dialysis ongoing, clear fluid pt is tearful and distressed about low blood sugars Objective - Vital Signs/Intake and Output Vital Signs (last 24 hours): Temp Pulse Resp BP Pulse Ox 98.4 F 87 20 142/73 100 11/13/16 07:00 11/13/16 07:00 11/13/16 07:00 11/13/16 07:00 11/13/16 07:00 - Medications Medications: Current Medications Acyclovir (Zovirax 5% Oint) 0 gm EXT Q3H [facility] Last Admin: 11/13/16 09:45 Dose: 1 applic Amlodipine Besylate (Norvasc) 10 mg PO DAILY [facility] Last Admin: 11/13/16 10:10 Dose: Not Given Aspirin (Ecotrin) 81 mg PO DAILY [facility] Last Admin: 11/13/16 10:10 Dose: Not Given Bacitracin (Bacitracin) 1 ea TOP DAILY [facility] Last Admin: 11/13/16 10:10 Dose: Not Given Calcium Acetate (Phoslo) 2,668 mg PO TIDCC [facility] Last Admin: 11/13/16 08:28 Dose: Not Given Carvedilol (Coreg) 12.5 mg PO BID [facility] Last Admin: 11/13/16 10:10 Dose: Not Given Clotrimazole (Lotrimin 1%) 1 gm TOP BID [facility] Last Admin: 11/13/16 10:10 Dose: 1 gm Epoetin Alec (Procrit) 10,000 unit SC [facility] Last Admin: 11/12/16 09:05 Dose: 10,000 unit Epoetin Alec (Procrit) 3,000 unit IV [facility] Last Admin: 11/12/16 12:39 Dose: Not Given Ferrous Sulfate (Feosol) 325 mg PO DAILY [facility] Last Admin: 11/13/16 10:10 Dose: Not Given Vancomycin HCl 1 gm/ Sodium (Chloride) 250 mls @ 166.7 mls/hr IVPB [facility] Last Admin: 11/12/16 09:05 Dose: 166.7 mls/hr Dextrose (Dextrose 10% In Water) 1,000 mls @ 40 mls/hr IV .Q24H [facility] Insulin Glargine (Lantus) 20 unit SC [facility] Last Admin: 11/12/16 22:22 Dose: Not Given Losartan Potassium (Cozaar) 100 mg PO DAILY@1800 [facility] Last Admin: 11/12/16 17:56 Dose: 100 mg Morphine Sulfate (Morphine) 2 mg IVP Q4 PRN PRN Reason: Pain, moderate (4-7) Last Admin: 11/12/16 21:59 Dose: 2 mg Petrolatum (Desitin Original) 0 gm TOP QID [facility] Last Admin: 11/13/16 10:10 Dose: 1 applic Rosuvastatin Calcium (Crestor) 2.5 mg PO [facility] Last Admin: 11/12/16 21:52 Dose: Not Given Rosuvastatin Calcium (Crestor) 10 mg PO [facility] Last Admin: 11/12/16 21:52 Dose: Not Given Saccharomyces Boulardii (Florastor) 250 mg PO TID [facility] Last Admin: 11/13/16 10:10 Dose: Not Given - Labs Labs: 11/13/16 07:07 11/13/16 07:07 PT 11.0 SECONDS (9.7-12.2) 11/07/16 17:26 INR 1.0 11/07/16 17:26 APTT 27 SECONDS (21-34) 10/26/16 18:15 - Constitutional Appears: Non-toxic, In Acute Distress, Chronically Ill - Head Exam Head Exam: NORMAL INSPECTION - Eye Exam Eye Exam: Normal appearance - ENT Exam ENT Exam: Mucous Membranes Dry, Normal Exam - Neck Exam Neck Exam: Normal Inspection - Respiratory Exam Respiratory Exam: Clear to Ausculation Bilateral, NORMAL BREATHING PATTERN - Cardiovascular Exam Cardiovascular Exam: REGULAR RHYTHM, RRR - GI/Abdominal Exam GI & Abdominal Exam: Distended, Diminished Bowel Sounds, Hypoactive Bowel Sounds - Extremities Exam Extremities Exam: Normal Inspection Assessment and Plan (1) Chronic anemia Status: Acute (2) Foot infection Status: Acute (3) Lower limb ischemia Status: Acute (4) Type 2 diabetes mellitus with diabetic nephropathy Status: Acute (5) Diabetes mellitus Status: Acute (6) ESRD on peritoneal dialysis Status: Acute - Assessment and Plan (Free Text) Assessment: maintain pd will need an iv line prior to cardiac cath recommend iv dextrose while npo if sugars still low. Pt received insulin day before, poor clearance in renal failure.
--- NOTE | 2016-11-13 11:46 | CP.PCM.PN ---
<Brady Glez Y - Last Filed: 11/13/16 11:43> Subjective - Date & Time of Evaluation Date of Evaluation: 11/13/16 Time of Evaluation: 11:43 - Subjective Subjective: 51 yo female pt seen at bedside this morning for f/u of right hallux ulceration. Pt seen resting comfortably in bed at time of visit. Does complain of some pain to the right hallux today. Also states that her left hallux toenail is loosening. Denies f/n/v/c/sob/cp at this time. Objective - Vital Signs/Intake and Output Vital Signs (last 24 hours): Temp Pulse Resp BP Pulse Ox 98.4 F 87 20 142/73 100 11/13/16 07:00 11/13/16 07:00 11/13/16 07:00 11/13/16 07:00 11/13/16 07:00 - Medications Medications: Current Medications Acyclovir (Zovirax 5% Oint) 0 gm EXT Q3H [facility] Last Admin: 11/13/16 09:45 Dose: 1 applic Amlodipine Besylate (Norvasc) 10 mg PO DAILY [facility] Last Admin: 11/13/16 10:10 Dose: Not Given Aspirin (Ecotrin) 81 mg PO DAILY [facility] Last Admin: 11/13/16 10:10 Dose: Not Given Bacitracin (Bacitracin) 1 ea TOP DAILY [facility] Last Admin: 11/13/16 10:10 Dose: Not Given Calcium Acetate (Phoslo) 2,668 mg PO TIDCC [facility] Last Admin: 11/13/16 08:28 Dose: Not Given Carvedilol (Coreg) 12.5 mg PO BID [facility] Last Admin: 11/13/16 10:10 Dose: Not Given Clotrimazole (Lotrimin 1%) 1 gm TOP BID [facility] Last Admin: 11/13/16 10:10 Dose: 1 gm Epoetin Alec (Procrit) 10,000 unit SC MWF [facility] Last Admin: 11/12/16 09:05 Dose: 10,000 unit Epoetin Alec (Procrit) 3,000 unit IV MWF [facility] Last Admin: 11/12/16 12:39 Dose: Not Given Ferrous Sulfate (Feosol) 325 mg PO DAILY [facility] Last Admin: 11/13/16 10:10 Dose: Not Given Vancomycin HCl 1 gm/ Sodium (Chloride) 250 mls @ 166.7 mls/hr IVPB MWF [facility] Last Admin: 11/12/16 09:05 Dose: 166.7 mls/hr Dextrose (Dextrose 10% In Water) 1,000 mls @ 40 mls/hr IV .Q24H [facility] Insulin Glargine (Lantus) 20 unit SC [facility] Last Admin: 11/12/16 22:22 Dose: Not Given Losartan Potassium (Cozaar) 100 mg PO DAILY@1800 [facility] Last Admin: 11/12/16 17:56 Dose: 100 mg Morphine Sulfate (Morphine) 2 mg IVP Q4 PRN PRN Reason: Pain, moderate (4-7) Last Admin: 11/12/16 21:59 Dose: 2 mg Petrolatum (Desitin Original) 0 gm TOP QID [facility] Last Admin: 11/13/16 10:10 Dose: 1 applic Rosuvastatin Calcium (Crestor) 2.5 mg PO [facility] Last Admin: 11/12/16 21:52 Dose: Not Given Rosuvastatin Calcium (Crestor) 10 mg PO [facility] Last Admin: 11/12/16 21:52 Dose: Not Given Saccharomyces Boulardii (Florastor) 250 mg PO TID [facility] Last Admin: 11/13/16 10:10 Dose: Not Given - Labs Labs: 11/13/16 07:07 11/13/16 07:07 PT 11.0 SECONDS (9.7-12.2) 11/07/16 17:26 INR 1.0 11/07/16 17:26 APTT 27 SECONDS (21-34) 10/26/16 18:15 - Constitutional Appears: Non-toxic, No Acute Distress - Extremities Exam Additional comments: DERMATOLOGIC: Right foot hallux is ischemic with dusky discoloration, subcutaneous blistering , moderate drainage from first interspace with small opening in the skin. Hyperpigmenation of lesser digits as well. Left hallux has mild hyperpigmentation and hallucal toenail appears to be lysing somewhat from proximal border VASCULAR: DP/PT pulses non palpable, skin is the right foot is slightly cool NEUROLOGIC: Gross sensation, motor function intact ORTHOPEDIC: Pain on palpation to the right forefoot - Neurological Exam Neurological Exam: Alert, Awake Assessment and Plan - Assessment and Plan (Free Text) Assessment: 51 year old female with right foot ischemic hallux Plan: Patient seen and evaluated at bedside All the questions and concerns were addressed Land and vitals were reviewed Per Vascular: Fem-Pop bypass on hold due to cardiac issues Discussed with attending Dr. Aldrich Podiatry will continue to follow while patient remain in house <Dre Aldrich - Last Filed: 11/13/16 12:32> Objective - Vital Signs/Intake and Output Vital Signs (last 24 hours): Temp Pulse Resp BP Pulse Ox 98.4 F 87 20 142/73 100 11/13/16 07:00 11/13/16 07:00 11/13/16 07:00 11/13/16 07:00 11/13/16 07:00 - Medications Medications: Current Medications Acyclovir (Zovirax 5% Oint) 0 gm EXT Q3H [facility] Last Admin: 11/13/16 09:45 Dose: 1 applic Amlodipine Besylate (Norvasc) 10 mg PO DAILY [facility] Last Admin: 11/13/16 10:10 Dose: Not Given Aspirin (Ecotrin) 81 mg PO DAILY [facility] Last Admin: 11/13/16 10:10 Dose: Not Given Bacitracin (Bacitracin) 1 ea TOP DAILY [facility] Last Admin: 11/13/16 10:10 Dose: Not Given Calcium Acetate (Phoslo) 2,668 mg PO TIDCC [facility] Last Admin: 11/13/16 12:31 Dose: Not Given Carvedilol (Coreg) 12.5 mg PO BID [facility] Last Admin: 11/13/16 10:10 Dose: Not Given Clotrimazole (Lotrimin 1%) 1 gm TOP BID [facility] Last Admin: 11/13/16 10:10 Dose: 1 gm Epoetin Alec (Procrit) 10,000 unit SC [facility] Last Admin: 11/12/16 09:05 Dose: 10,000 unit Epoetin Alec (Procrit) 3,000 unit IV [facility] Last Admin: 11/12/16 12:39 Dose: Not Given Ferrous Sulfate (Feosol) 325 mg PO DAILY [facility] Last Admin: 11/13/16 10:10 Dose: Not Given Vancomycin HCl 1 gm/ Sodium (Chloride) 250 mls @ 166.7 mls/hr IVPB [facility] Last Admin: 11/12/16 09:05 Dose: 166.7 mls/hr Dextrose (Dextrose 10% In Water) 1,000 mls @ 40 mls/hr IV .Q24H [facility] Insulin Glargine (Lantus) 20 unit SC [facility] Last Admin: 11/12/16 22:22 Dose: Not Given Losartan Potassium (Cozaar) 100 mg PO DAILY@1800 [facility] Last Admin: 11/12/16 17:56 Dose: 100 mg Morphine Sulfate (Morphine) 2 mg IVP Q4 PRN PRN Reason: Pain, moderate (4-7) Last Admin: 11/12/16 21:59 Dose: 2 mg Petrolatum (Desitin Original) 0 gm TOP QID [facility] Last Admin: 11/13/16 10:10 Dose: 1 applic Rosuvastatin Calcium (Crestor) 2.5 mg PO [facility] Last Admin: 11/12/16 21:52 Dose: Not Given Rosuvastatin Calcium (Crestor) 10 mg PO [facility] Last Admin: 11/12/16 21:52 Dose: Not Given Saccharomyces Boulardii (Florastor) 250 mg PO TID [facility] Last Admin: 11/13/16 10:10 Dose: Not Given - Labs Labs: 11/13/16 07:07 11/13/16 07:07 PT 11.0 SECONDS (9.7-12.2) 11/07/16 17:26 INR 1.0 11/07/16 17:26 APTT 27 SECONDS (21-34) 10/26/16 18:15 Attending/Attestation - Attestation I have personally seen and examined this patient.: Yes I have fully participated in the care of the patient.: Yes I have reviewed all pertinent clinical information, including history, physical exam and plan: Yes
[2016-11-13] MEDS ORDERED: Midazolam 2 MG/2 ML VIAL ONE ×2 (14:25→14:39)
[2016-11-13] MEDS ORDERED: Iodixanol 320 MG/ML 200 ML BOTTLE IV ONE (14:26)
[2016-11-13] MEDS ORDERED: Iodixanol 320 MG/ML 100 ML BOTTLE IV ONE (15:04)
--- NOTE | 2016-11-13 15:34 | CP.PCM.PN ---
Subjective - Date & Time of Evaluation Date of Evaluation: 11/13/16 Time of Evaluation: 15:30 - Subjective Subjective: cardiac cath performed. report dictated. diffuse CAD. Moderate proximal LAD , proximal L circumfelx. OM1 75%. LV function is normal. Medical management per Dr. Parra. Objective - Vital Signs/Intake and Output Vital Signs (last 24 hours): Temp Pulse Resp BP Pulse Ox 98.4 F 87 20 142/73 100 11/13/16 07:00 11/13/16 07:00 11/13/16 07:00 11/13/16 07:00 11/13/16 07:00 Intake and Output: 11/13/16 11/13/16 06:59 18:59 Intake Total 80 Balance 80 - Medications Medications: Current Medications Acyclovir (Zovirax 5% Oint) 0 gm EXT Q3H [facility] Last Admin: 11/13/16 12:34 Dose: 1 applic Amlodipine Besylate (Norvasc) 10 mg PO DAILY [facility] Last Admin: 11/13/16 10:10 Dose: Not Given Aspirin (Ecotrin) 81 mg PO DAILY [facility] Last Admin: 11/13/16 10:10 Dose: Not Given Bacitracin (Bacitracin) 1 ea TOP DAILY [facility] Last Admin: 11/13/16 10:10 Dose: Not Given Calcium Acetate (Phoslo) 2,668 mg PO TIDCC [facility] Last Admin: 11/13/16 12:31 Dose: Not Given Carvedilol (Coreg) 12.5 mg PO BID [facility] Last Admin: 11/13/16 10:10 Dose: Not Given Clotrimazole (Lotrimin 1%) 1 gm TOP BID [facility] Last Admin: 11/13/16 10:10 Dose: 1 gm Epoetin Alec (Procrit) 10,000 unit SC [facility] Last Admin: 11/12/16 09:05 Dose: 10,000 unit Epoetin Alec (Procrit) 3,000 unit IV [facility] Last Admin: 11/12/16 12:39 Dose: Not Given Ferrous Sulfate (Feosol) 325 mg PO DAILY [facility] Last Admin: 11/13/16 10:10 Dose: Not Given Vancomycin HCl 1 gm/ Sodium (Chloride) 250 mls @ 166.7 mls/hr IVPB [facility] Last Admin: 11/12/16 09:05 Dose: 166.7 mls/hr Dextrose (Dextrose 10% In Water) 1,000 mls @ 40 mls/hr IV .Q24H [facility] Last Admin: 11/13/16 10:45 Dose: 40 mls/hr Insulin Glargine (Lantus) 20 unit SC [facility] Last Admin: 11/12/16 22:22 Dose: Not Given Losartan Potassium (Cozaar) 100 mg PO DAILY@1800 [facility] Last Admin: 11/12/16 17:56 Dose: 100 mg Morphine Sulfate (Morphine) 2 mg IVP Q4 PRN PRN Reason: Pain, moderate (4-7) Last Admin: 11/12/16 21:59 Dose: 2 mg Petrolatum (Desitin Original) 0 gm TOP QID [facility] Last Admin: 11/13/16 14:03 Dose: Not Given Rosuvastatin Calcium (Crestor) 2.5 mg PO [facility] Last Admin: 11/12/16 21:52 Dose: Not Given Rosuvastatin Calcium (Crestor) 10 mg PO [facility] Last Admin: 11/12/16 21:52 Dose: Not Given Saccharomyces Boulardii (Florastor) 250 mg PO TID [facility] Last Admin: 11/13/16 14:03 Dose: Not Given - Labs Labs: 11/13/16 07:07 11/13/16 07:07 PT 11.0 SECONDS (9.7-12.2) 11/07/16 17:26 INR 1.0 11/07/16 17:26 APTT 27 SECONDS (21-34) 10/26/16 18:15
--- NOTE | 2016-11-13 18:00 | CARDCATH ---
PROCEDURE DATE: 11/13/2016 PERFORMING PHYSICIAN: Aubree Cordova MD. REFERRING PHYSICIAN: Dr. Eric Parra and Dr. Harman Clark. PROCEDURE PERFORMED: Left heart catheterization, coronary angiography, left ventriculography. INDICATIONS: Non-ST segment elevation myocardial infarction and preoperative cardiovascular risk ass essment prior to lower extremity fem-pop bypass. HISTORY: The patient is a 51-year-old female with a past medical history of hypertension, hyperchole sterolemia and diabetes mellitus who has severe peripheral vascular disease. The patient is schedule d for right fem-pop bypass. The patient had a non-ST segment elevation myocardial infarction. She i s referred for coronary angiography for preoperative risk evaluation. DESCRIPTION OF PROCEDURE: The left common femoral artery was accessed with a 6-Tanzanian sheath and cor onary angiography and left ventriculography were performed. All catheters were then removed and manu al pressure was applied to achieve hemostasis. FINDINGS: LEFT MAIN: Arises from left sinus of Valsalva and bifurcates into the left anterior descending arter y and ramus intermedius branch. The left main has a 20% stenosis distally. LEFT ANTERIOR DESCENDING ARTERY: Arises from the left main and courses along the anterior interventr icular groove. There is a haziness to the proximal vessel which is consistent likely with intralumin al atherosclerosis. There is a 50% stenosis proximally. Diffuse disease is noted throughout the mid to distal vessel. LEFT CIRCUMFLEX ARTERY: Arises from the left main and courses along the left atrioventricular groove . There is a 60% stenosis of the proximal vessel. The first obtuse marginal has a 75% stenosis. Di ffuse disease is noted throughout the circumflex system. RIGHT CORONARY ARTERY: The vessel arises from right sinus of Valsalva. There is a right dominant ci rculation. There is a 50% stenosis of the proximal vessel. Diffuse disease is noted. LEFT VENTRICLE: Normal left ventricular systolic function. Left ventricular ejection fraction 55%. There is no mitral regurgitation and no aortic stenosis. CONCLUSIONS: 1. Diffuse coronary artery disease. 2. Normal left ventricular function. PLAN: Aggressive medical therapy with primary cardiovascular management per Dr. Eric Parra. Aubree Cordova MD cc: [phone] TT: 11/13/2016 17:59:22 mn
[2016-11-13] MEDS: Rosuvastatin Calcium 2.5 mg Tab PO SCH (21:41)
[2016-11-13] MEDS: (Lantus) Insulin Glargine, Recombinant SC SCH (22:17)
[2016-11-14] MEDS: Acyclovir 5% Oint (15 gm) EXT SCH ×7 (03:25→21:21)
[2016-11-14] MEDS: Saccharomyces Boulardi 250 mg Cap PO SCH ×3 (09:27→18:42)
[2016-11-14] MEDS: EPOETIN ALFA 10,000 UNIT/ML ML SC SCH (09:27)
[2016-11-14] MEDS: Bacitracin 500 Units/gm Oint Foilpak UD TOP SCH (09:28)
[2016-11-14] MEDS: Zinc Oxide Topical 30 gm Tube TOP SCH ×4 (09:30→21:23)
[2016-11-14] MEDS: Clotrimazole 1% Cream(30 gm) TOP SCH ×2 (09:31→18:44)
--- NOTE | 2016-11-14 13:37 | CP.PCM.PN ---
Subjective - Date & Time of Evaluation Date of Evaluation: 11/14/16 Time of Evaluation: 13:34 - Subjective Subjective: s/p cardiac cath- diffuse CAD; on medical management Hg lower post cath- to check fe stores- continue ESAs PD going well; fluid clear s/p PICC For LE bypass in 1-2 days Objective - Vital Signs/Intake and Output Vital Signs (last 24 hours): Temp Pulse Resp BP Pulse Ox 98.6 F 90 18 131/66 100 11/14/16 07:20 11/14/16 09:00 11/14/16 07:20 11/14/16 09:25 11/14/16 07:20 - Medications Medications: Current Medications Acyclovir (Zovirax 5% Oint) 0 gm EXT Q3H [facility] Last Admin: 11/14/16 09:29 Dose: 1 applic Amlodipine Besylate (Norvasc) 10 mg PO DAILY [facility] Last Admin: 11/14/16 09:25 Dose: 10 mg Aspirin (Ecotrin) 81 mg PO DAILY [facility] Last Admin: 11/14/16 09:29 Dose: 81 mg Bacitracin (Bacitracin) 1 ea TOP DAILY [facility] Last Admin: 11/14/16 09:28 Dose: 1 ea Calcium Acetate (Phoslo) 2,668 mg PO TIDCC [facility] Last Admin: 11/14/16 08:05 Dose: 2,668 mg Carvedilol (Coreg) 12.5 mg PO BID [facility] Last Admin: 11/14/16 09:25 Dose: 12.5 mg Clotrimazole (Lotrimin 1%) 1 gm TOP BID [facility] Last Admin: 11/14/16 09:31 Dose: Not Given Epoetin Alec (Procrit) 10,000 unit SC [facility] Last Admin: 11/14/16 09:27 Dose: 10,000 unit Epoetin Alec (Procrit) 3,000 unit IV [facility] Last Admin: 11/12/16 12:39 Dose: Not Given Ferrous Sulfate (Feosol) 325 mg PO DAILY [facility] Last Admin: 11/14/16 09:28 Dose: 325 mg Vancomycin HCl 1 gm/ Sodium (Chloride) 250 mls @ 166.7 mls/hr IVPB [facility] Last Admin: 11/12/16 09:05 Dose: 166.7 mls/hr Dextrose (Dextrose 10% In Water) 1,000 mls @ 40 mls/hr IV .Q24H [facility] Last Admin: 11/14/16 10:40 Dose: Not Given Insulin Glargine (Lantus) 20 unit SC [facility] Last Admin: 11/13/16 22:17 Dose: Not Given Losartan Potassium (Cozaar) 100 mg PO DAILY@1800 [facility] Last Admin: 11/13/16 18:01 Dose: 100 mg Morphine Sulfate (Morphine) 2 mg IVP Q4 PRN PRN Reason: Pain, moderate (4-7) Last Admin: 11/14/16 09:39 Dose: 2 mg Petrolatum (Desitin Original) 0 gm TOP QID [facility] Last Admin: 11/14/16 09:30 Dose: 1 applic Rosuvastatin Calcium (Crestor) 2.5 mg PO [facility] Last Admin: 11/13/16 21:41 Dose: 2.5 mg Rosuvastatin Calcium (Crestor) 10 mg PO [facility] Last Admin: 11/13/16 23:17 Dose: Not Given Saccharomyces Boulardii (Florastor) 250 mg PO TID [facility] Last Admin: 11/14/16 09:27 Dose: 250 mg - Labs Labs: 11/13/16 07:07 11/13/16 07:07 PT 11.0 SECONDS (9.7-12.2) 11/07/16 17:26 INR 1.0 11/07/16 17:26 APTT 27 SECONDS (21-34) 10/26/16 18:15 - Constitutional Appears: No Acute Distress, Chronically Ill - Head Exam Head Exam: ATRAUMATIC, NORMAL INSPECTION - Eye Exam Eye Exam: EOMI, Normal appearance - Neck Exam Neck Exam: Normal Inspection. absent: Tenderness - Respiratory Exam Respiratory Exam: Clear to Ausculation Bilateral, NORMAL BREATHING PATTERN - Cardiovascular Exam Cardiovascular Exam: REGULAR RHYTHM, +S1 - GI/Abdominal Exam GI & Abdominal Exam: Soft. absent: Tenderness - Extremities Exam Extremities Exam: Normal Inspection. absent: Tenderness - Neurological Exam Neurological Exam: Alert, CN II-XII Intact - Skin Skin Exam: Dry, Warm Assessment and Plan (1) Type 2 diabetes mellitus with diabetic nephropathy Status: Acute (2) Chronic anemia Status: Acute (3) Foot infection Status: Acute (4) Lower limb ischemia Status: Acute (5) ESRD on peritoneal dialysis Status: Acute (6) Hypertension Status: Acute - Assessment and Plan (Free Text) Plan: Await bypass Check iron stores; consider blood tx Repeat labs
--- NOTE | 2016-11-14 13:40 | RAD ---
HISTORY: verify right PICC COMPARISON: 11/08/16 FINDINGS: LUNGS: In situ right-sided PICC line with tip the SVC. Minor bibasilar atelectasis. PLEURA: No significant pleural effusion identified, no pneumothorax apparent. CARDIOVASCULAR: Cardiomegaly. OSSEOUS STRUCTURES: No significant abnormalities. VISUALIZED UPPER ABDOMEN: Normal. OTHER FINDINGS: None. IMPRESSION: In situ right-sided PICC line as above. Patency without development worthy of cardiomegaly. Mild bibasilar atelectasis.
--- NOTE | 2016-11-14 18:34 | CON ---
DATE: 11/14/2016 The patient is scheduled to undergo a right femoral popliteal bypass with reverse saphenous vein on which would be the . The reason for the delay is the availability of the operating room at an appropriate hour to be starting this operation, after 4 ____ . Schedule for early on Saturday. Th e procedure and its risks have been discussed with the patient, particularly the risk of limb loss, t hrombosis, bleeding and other problems associated with surgery of this type. The patient is also marcio re that there are no guarantees given and that she still has a possibility of losing the leg. Noneth eless, the patient will be scheduled for surgery. The procedure and its risks were discussed. Harman Clark Jr., MD cc: [id number] TT: 11/14/2016 18:33:28 Confirmation # [id number] Dictation # [id number] ceasar
--- NOTE | 2016-11-14 18:38 | CP.PCM.PN ---
Subjective - Date & Time of Evaluation Date of Evaluation: 11/14/16 Time of Evaluation: 18:38 - Subjective Subjective: patient is morning feeling slightly better. The blood sugar is still on the low side. She's eating okay. Denies any chest pain. Nausea negative. Leg swelling negative Objective - Vital Signs/Intake and Output Vital Signs (last 24 hours): Temp Pulse Resp BP Pulse Ox 98.3 F 94 H 18 149/63 96 11/14/16 15:53 11/14/16 15:53 11/14/16 15:53 11/14/16 15:53 11/14/16 15:53 - Medications Medications: Current Medications Acyclovir (Zovirax 5% Oint) 0 gm EXT Q3H [facility] Last Admin: 11/14/16 12:10 Dose: 1 applic Amlodipine Besylate (Norvasc) 10 mg PO DAILY [facility] Last Admin: 11/14/16 09:25 Dose: 10 mg Aspirin (Ecotrin) 81 mg PO DAILY [facility] Last Admin: 11/14/16 09:29 Dose: 81 mg Bacitracin (Bacitracin) 1 ea TOP DAILY [facility] Last Admin: 11/14/16 09:28 Dose: 1 ea Calcium Acetate (Phoslo) 2,668 mg PO TIDCC [facility] Last Admin: 11/14/16 12:00 Dose: 2,668 mg Carvedilol (Coreg) 12.5 mg PO BID [facility] Last Admin: 11/14/16 09:25 Dose: 12.5 mg Clotrimazole (Lotrimin 1%) 1 gm TOP BID [facility] Last Admin: 11/14/16 09:31 Dose: Not Given Epoetin Alec (Procrit) 10,000 unit SC [facility] Last Admin: 11/14/16 09:27 Dose: 10,000 unit Epoetin Alec (Procrit) 3,000 unit IV [facility] Last Admin: 11/12/16 12:39 Dose: Not Given Ferrous Sulfate (Feosol) 325 mg PO DAILY [facility] Last Admin: 11/14/16 09:28 Dose: 325 mg Vancomycin HCl 1 gm/ Sodium (Chloride) 250 mls @ 166.7 mls/hr IVPB [facility] Last Admin: 11/14/16 10:00 Dose: Not Given Dextrose (Dextrose 10% In Water) 1,000 mls @ 40 mls/hr IV .Q24H [facility] Last Admin: 11/14/16 10:40 Dose: Not Given Insulin Glargine (Lantus) 20 unit SC [facility] Last Admin: 11/13/16 22:17 Dose: Not Given Losartan Potassium (Cozaar) 100 mg PO DAILY@1800 [facility] Last Admin: 11/13/16 18:01 Dose: 100 mg Morphine Sulfate (Morphine) 2 mg IVP Q4 PRN PRN Reason: Pain, moderate (4-7) Last Admin: 11/14/16 13:38 Dose: 2 mg Petrolatum (Desitin Original) 0 gm TOP QID [facility] Last Admin: 11/14/16 13:45 Dose: 1 applic Rosuvastatin Calcium (Crestor) 2.5 mg PO [facility] Last Admin: 11/13/16 21:41 Dose: 2.5 mg Rosuvastatin Calcium (Crestor) 10 mg PO [facility] Last Admin: 11/13/16 23:17 Dose: Not Given Saccharomyces Boulardii (Florastor) 250 mg PO TID [facility] Last Admin: 11/14/16 13:42 Dose: 250 mg - Labs Labs: 11/13/16 07:07 11/13/16 07:07 PT 11.0 SECONDS (9.7-12.2) 11/07/16 17:26 INR 1.0 11/07/16 17:26 APTT 27 SECONDS (21-34) 10/26/16 18:15 Assessment and Plan (1) Foot infection Status: Acute (2) Lower limb ischemia Assessment & Plan: ischemia leg. Underwent a coronary angiogram, diffuse disease, medical management, spoke to the patient in detail. Currently patient will need a definite i intervention to the legs. High risk. Spoke to the patient. Continue the treatment Status: Acute (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
[2016-11-14] MEDS: Rosuvastatin Calcium 2.5 mg Tab PO SCH (21:22)
[2016-11-14] MEDS: (Lantus) Insulin Glargine, Recombinant SC SCH (21:45)
[2016-11-15] MEDS: Acyclovir 5% Oint (15 gm) EXT SCH ×6 (00:05→21:00)
[2016-11-15] MEDS: (Novolin R) Insulin Human Regular 100 units/ml vial SC SCH ×4 (08:37→22:00)
[2016-11-15] MEDS: Saccharomyces Boulardi 250 mg Cap PO SCH ×3 (10:15→18:26)
[2016-11-15] MEDS: Clotrimazole 1% Cream(30 gm) TOP SCH ×2 (10:24→18:00)
[2016-11-15] MEDS: Bacitracin 500 Units/gm Oint Foilpak UD TOP SCH (10:26)
[2016-11-15 10:28] LABS: BASO # 0.1 K/uL (0.0-0.2); BASO % 0.5 % (0.0-2.0); EOS # 0.1 K/uL (0.0-0.7); HEMATOCRIT 22.3 % (34.0-47.0); LYMPH # 1.2 K/uL (1.0-4.3); LYMPH % 11.2 % (20.0-40.0); MEAN CELL VOLUME 101.5 fL (81.0-99.0); MEAN CORPUSCULAR HEMOGLOBIN 32.9 pg (27.0-31.0); MEAN CORPUSCULAR HGB CONC 32.5 g/dL (33.0-37.0); MEAN PLATELET VOLUME 8.3 fL (7.2-11.7); MONO # 1.1 K/uL (0.0-0.8); MONO % 10.9 % (0.0-10.0); NRBC % 0.2 % (0.0-2.0); RED CELL DISTRIBUTION WIDTH 19.5 % (11.5-14.5); WHITE BLOOD COUNT 10.5 K/uL (4.8-10.8)
[2016-11-15 10:40] LABS: ALB/GLOB RATIO 0.9 (1.0-2.1); BILIRUBIN,TOTAL 0.4 mg/dL (0.2-1.3); TOTAL PROTEIN 6.1 g/dL (6.3-8.3)
--- NOTE | 2016-11-15 10:40 | CP.PCM.PN ---
Subjective - Date & Time of Evaluation Date of Evaluation: 11/15/16 Time of Evaluation: 10:37 - Subjective Subjective: s/p PICC PD going well BP controlled BSs in 200s No CPs, n, v, diarrhea,f,c Hg dropped 7.2 despite ESAs Scheduled for LE bypass in AM Discussed with PMD- will need blood transfusions today prior to surgery Lower Hg due to chronic disease and worsened by procedures- PICC, cardiac cath Discussed situation with patient at length Objective - Vital Signs/Intake and Output Vital Signs (last 24 hours): Temp Pulse Resp BP Pulse Ox 98.8 F 94 H 20 145/73 99 11/15/16 08:00 11/15/16 08:00 11/15/16 08:00 11/15/16 10:15 11/15/16 08:00 Intake and Output: 11/15/16 11/15/16 06:59 18:59 Intake Total 360 Balance 360 - Medications Medications: Current Medications Acyclovir (Zovirax 5% Oint) 0 gm EXT Q3H [facility] Last Admin: 11/15/16 08:50 Dose: 1 applic Amlodipine Besylate (Norvasc) 10 mg PO DAILY [facility] Last Admin: 11/15/16 10:25 Dose: Not Given Aspirin (Ecotrin) 81 mg PO DAILY [facility] Last Admin: 11/15/16 10:15 Dose: 81 mg Bacitracin (Bacitracin) 1 ea TOP DAILY [facility] Last Admin: 11/15/16 10:26 Dose: Not Given Calcium Acetate (Phoslo) 2,668 mg PO TIDCC [facility] Last Admin: 11/15/16 08:21 Dose: 2,668 mg Carvedilol (Coreg) 12.5 mg PO BID [facility] Last Admin: 11/15/16 10:15 Dose: 12.5 mg Clotrimazole (Lotrimin 1%) 1 gm TOP BID [facility] Last Admin: 11/15/16 10:24 Dose: Not Given Epoetin Alec (Procrit) 10,000 unit SC MWF [facility] Last Admin: 11/14/16 09:27 Dose: 10,000 unit Epoetin Alec (Procrit) 3,000 unit IV F [facility] Last Admin: 11/12/16 12:39 Dose: Not Given Ferrous Sulfate (Feosol) 325 mg PO DAILY [facility] Last Admin: 11/14/16 09:28 Dose: 325 mg Vancomycin HCl 1 gm/ Sodium (Chloride) 250 mls @ 166.7 mls/hr IVPB MWF [facility] Last Admin: 11/14/16 10:00 Dose: Not Given Insulin Glargine (Lantus) [address] [facility] Last Admin: 11/14/16 21:45 Dose: 40 units Insulin Human Regular (Novolin R) 0 unit SC ACHS [facility] PRN Reason: Protocol Last Admin: 11/15/16 08:37 Dose: Not Given Losartan Potassium (Cozaar) 100 mg PO DAILY@1800 [facility] Last Admin: 11/14/16 18:41 Dose: 100 mg Morphine Sulfate (Morphine) 2 mg IVP Q3 PRN PRN Reason: pain Last Admin: 11/15/16 10:03 Dose: 2 mg Petrolatum (Desitin Original) 0 gm TOP QID [facility] Last Admin: 11/14/16 21:23 Dose: 1 applic Rosuvastatin Calcium (Crestor) 2.[address] [facility] Last Admin: 11/14/16 21:22 Dose: 2.5 mg Rosuvastatin Calcium (Crestor) [address] [facility] Last Admin: 11/14/16 21:22 Dose: Not Given Saccharomyces Boulardii (Florastor) 250 mg PO TID [facility] Last Admin: 11/15/16 10:15 Dose: 250 mg - Labs Labs: 11/15/16 10:20 11/13/16 07:07 PT 11.0 SECONDS (9.7-12.2) 11/07/16 17:26 INR 1.0 11/07/16 17:26 APTT 27 SECONDS (21-34) 10/26/16 18:15 - Constitutional Appears: No Acute Distress, Chronically Ill - Head Exam Head Exam: ATRAUMATIC, NORMAL INSPECTION - Eye Exam Eye Exam: EOMI, Normal appearance - Neck Exam Neck Exam: Normal Inspection. absent: Tenderness - Respiratory Exam Respiratory Exam: Clear to Ausculation Bilateral, NORMAL BREATHING PATTERN - Cardiovascular Exam Cardiovascular Exam: REGULAR RHYTHM, +S1 - GI/Abdominal Exam GI & Abdominal Exam: Soft. absent: Tenderness - Extremities Exam Extremities Exam: Normal Inspection. absent: Tenderness - Neurological Exam Neurological Exam: Alert, CN II-XII Intact - Skin Skin Exam: Dry, Warm Assessment and Plan (1) Type 2 diabetes mellitus with diabetic nephropathy Status: Acute (2) Chronic anemia Status: Acute (3) Foot infection Status: Acute (4) Lower limb ischemia Status: Acute (5) ESRD on peritoneal dialysis Status: Acute (6) Hypertension Status: Acute - Assessment and Plan (Free Text) Plan: Same PD Same BP meds LE vascular bypass in AM Recommend blood transusions 2 units prbcs today
[2016-11-15 10:41] LABS: CALCIUM 8.4 mg/dl (8.6-10.4); PHOSPHOROUS 5.5 mg/dL (2.5-4.5)
[2016-11-15 10:44] LABS: VANCOMYCIN RANDOM 25.2 ug/mL
[2016-11-15] MEDS: Zinc Oxide Topical 30 gm Tube TOP SCH ×4 (11:53→22:00)
--- NOTE | 2016-11-15 15:41 | CP.PCM.PN ---
Subjective - Date & Time of Evaluation Date of Evaluation: 11/15/16 Time of Evaluation: 15:39 - Subjective Subjective: Surgery: Dr. Clark Pt seen and examined. For Fem-pop bypass tomorrow. NPO at midnight Will d/w Dr. Clark transfusing pt prior to OR [facility] PGY2 Objective - Vital Signs/Intake and Output Vital Signs (last 24 hours): Temp Pulse Resp BP Pulse Ox 98.8 F 94 H 20 103/62 99 11/15/16 08:00 11/15/16 08:00 11/15/16 08:00 11/15/16 14:38 11/15/16 08:00 Intake and Output: 11/15/16 11/15/16 06:59 18:59 Intake Total 360 480 Balance 360 480 - Medications Medications: Current Medications Acyclovir (Zovirax 5% Oint) 0 gm EXT Q3H [facility] Last Admin: 11/15/16 08:50 Dose: 1 applic Amlodipine Besylate (Norvasc) 10 mg PO DAILY [facility] Last Admin: 11/15/16 14:35 Dose: Not Given Aspirin (Ecotrin) 81 mg PO DAILY [facility] Last Admin: 11/15/16 10:15 Dose: 81 mg Bacitracin (Bacitracin) 1 ea TOP DAILY [facility] Last Admin: 11/15/16 10:26 Dose: Not Given Calcium Acetate (Phoslo) 2,668 mg PO TIDCC [facility] Last Admin: 11/15/16 12:50 Dose: Not Given Carvedilol (Coreg) 12.5 mg PO BID [facility] Last Admin: 11/15/16 10:15 Dose: 12.5 mg Clotrimazole (Lotrimin 1%) 1 gm TOP BID [facility] Last Admin: 11/15/16 10:24 Dose: Not Given Epoetin Alec (Procrit) 10,000 unit SC MWF [facility] Last Admin: 11/14/16 09:27 Dose: 10,000 unit Epoetin Alec (Procrit) [facility] Last Admin: 11/12/16 12:39 Dose: Not Given Ferrous Sulfate (Feosol) 325 mg PO DAILY [facility] Last Admin: 11/15/16 10:49 Dose: 325 mg Vancomycin HCl 1 gm/ Sodium (Chloride) 250 mls @ 166.7 mls/hr IVPB MWF [facility] Last Admin: 11/14/16 10:00 Dose: Not Given Insulin Glargine (Lantus) 40 unit SC [facility] Last Admin: 11/14/16 21:45 Dose: 40 units Insulin Human Regular (Novolin R) 0 unit SC ACHS [facility] PRN Reason: Protocol Last Admin: 11/15/16 11:53 Dose: Not Given Losartan Potassium (Cozaar) 100 mg PO DAILY@1800 [facility] Last Admin: 11/14/16 18:41 Dose: 100 mg Morphine Sulfate (Morphine) 2 mg IVP Q3 PRN PRN Reason: pain Last Admin: 11/15/16 10:03 Dose: 2 mg Petrolatum (Desitin Original) 0 gm TOP QID [facility] Last Admin: 11/15/16 14:35 Dose: Not Given Rosuvastatin Calcium (Crestor) 2.5 mg PO [facility] Last Admin: 11/14/16 21:22 Dose: 2.5 mg Rosuvastatin Calcium (Crestor) 10 mg PO [facility] Last Admin: 11/14/16 21:22 Dose: Not Given Saccharomyces Boulardii (Florastor) 250 mg PO TID [facility] Last Admin: 11/15/16 14:35 Dose: Not Given - Labs Labs: 11/15/16 10:20 11/15/16 10:20 PT 11.0 SECONDS (9.7-12.2) 11/07/16 17:26 INR 1.0 11/07/16 17:26 APTT 27 SECONDS (21-34) 10/26/16 18:15
--- NOTE | 2016-11-15 21:30 | CP.PCM.PN ---
Subjective - Date & Time of Evaluation Date of Evaluation: 11/15/16 Time of Evaluation: 21:24 - Subjective Subjective: pt is getting blood no chest pain HB 7.2 on PD now Objective - Vital Signs/Intake and Output Vital Signs (last 24 hours): Temp Pulse Resp BP Pulse Ox 98.2 F 92 H 16 162/67 H 100 11/15/16 20:02 11/15/16 20:02 11/15/16 20:02 11/15/16 20:02 11/15/16 15:31 Intake and Output: 11/15/16 11/16/16 18:59 06:59 Intake Total 480 0 Balance 480 0 - Medications Medications: Current Medications Acyclovir (Zovirax 5% Oint) 0 gm EXT Q3H [facility] Last Admin: 11/15/16 18:31 Dose: 1 applic Amlodipine Besylate (Norvasc) 10 mg PO DAILY [facility] Last Admin: 11/15/16 14:35 Dose: Not Given Aspirin (Ecotrin) 81 mg PO DAILY [facility] Last Admin: 11/15/16 10:15 Dose: 81 mg Bacitracin (Bacitracin) 1 ea TOP DAILY [facility] Last Admin: 11/15/16 10:26 Dose: Not Given Calcium Acetate (Phoslo) 2,668 mg PO TIDCC [facility] Last Admin: 11/15/16 18:30 Dose: 2,668 mg Carvedilol (Coreg) 12.5 mg PO BID [facility] Last Admin: 11/15/16 18:28 Dose: 12.5 mg Clotrimazole (Lotrimin 1%) 1 gm TOP BID [facility] Last Admin: 11/15/16 18:00 Dose: Not Given Epoetin Alec (Procrit) 10,000 unit SC [facility] [place] [facility] Last Admin: 11/14/16 09:27 Dose: 10,000 unit Epoetin Alec (Procrit) 3,000 unit IV [facility] Last Admin: 11/12/16 12:39 Dose: Not Given Ferrous Sulfate (Feosol) 325 mg PO DAILY [facility] Last Admin: 11/15/16 10:49 Dose: 325 mg Vancomycin HCl 1 gm/ Sodium (Chloride) 250 mls @ 166.7 mls/hr IVPB [facility] Last Admin: 11/14/16 10:00 Dose: Not Given Insulin Glargine (Lantus) 40 unit SC [facility] Last Admin: 11/14/16 21:45 Dose: 40 units Insulin Human Regular (Novolin R) 0 unit SC ACHS [facility] PRN Reason: Protocol Last Admin: 11/15/16 16:30 Dose: Not Given Losartan Potassium (Cozaar) 100 mg PO DAILY@1800 [facility] Last Admin: 11/15/16 18:27 Dose: 100 mg Morphine Sulfate (Morphine) 2 mg IVP Q3 PRN PRN Reason: pain Last Admin: 11/15/16 10:03 Dose: 2 mg Petrolatum (Desitin Original) 0 gm TOP QID [facility] Last Admin: 11/15/16 18:30 Dose: 1 applic Rosuvastatin Calcium (Crestor) 2.5 mg PO [facility] Last Admin: 11/14/16 21:22 Dose: 2.5 mg Rosuvastatin Calcium (Crestor) 10 mg PO [facility] Last Admin: 11/14/16 21:22 Dose: Not Given Saccharomyces Boulardii (Florastor) 250 mg PO TID [facility] Last Admin: 11/15/16 18:26 Dose: 250 mg - Labs Labs: 11/15/16 10:20 11/15/16 10:20 PT 11.0 SECONDS (9.7-12.2) 11/07/16 17:26 INR 1.0 11/07/16 17:26 APTT 27 SECONDS (21-34) 10/26/16 18:15 Assessment and Plan (1) Foot infection Assessment & Plan: ischemia for surgery in am transfusion will f/u Status: Acute (2) Lower limb ischemia Status: Acute (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
[2016-11-15] MEDS: Rosuvastatin Calcium 2.5 mg Tab PO SCH (22:00)
[2016-11-15] MEDS: (Lantus) Insulin Glargine, Recombinant SC SCH (22:00)
[2016-11-16] MEDS: Acyclovir 5% Oint (15 gm) EXT SCH ×6 (03:08→20:42)
[2016-11-16 05:57] LABS: MEAN CELL VOLUME 95.5 fL (81.0-99.0); MEAN CORPUSCULAR HGB CONC 33.5 g/dL (33.0-37.0); MEAN PLATELET VOLUME 8.6 fL (7.2-11.7); RED CELL DISTRIBUTION WIDTH 20.3 % (11.5-14.5); WHITE BLOOD COUNT 10.4 K/uL (4.8-10.8)
[2016-11-16 06:17] LABS: CALCIUM 8.9 mg/dl (8.6-10.4)
[2016-11-16] MEDS: Bacitracin 500 Units/gm Oint Foilpak UD TOP SCH (09:19)
[2016-11-16] MEDS: Zinc Oxide Topical 30 gm Tube TOP SCH ×2 (09:19→13:43)
[2016-11-16] MEDS: Saccharomyces Boulardi 250 mg Cap PO SCH ×2 (09:19→13:43)
[2016-11-16] MEDS: Clotrimazole 1% Cream(30 gm) TOP SCH (09:19)
[2016-11-16] MEDS: (Novolin R) Insulin Human Regular 100 units/ml vial SC SCH ×2 (09:20→21:48)
[2016-11-16] MEDS ORDERED: HEPARIN-NS 5,000 UNITS/500 ML 5,000 UNIT/500 ML BAG IV ONE ×3 (10:24→14:08)
--- NOTE | 2016-11-16 10:25 | CP.PCM.PN ---
<Brady Glez Y - Last Filed: 11/16/16 10:22> Subjective - Date & Time of Evaluation Date of Evaluation: 11/16/16 Time of Evaluation: 10:22 - Subjective Subjective: 51 yo female pt seen at bedside this morning for f/u of right hallux ulceration and gangrene. Pt seen resting comfortably in bed at time of visit. Does complain of some pain to the right hallux today. Also states that her left hallux toenail is loosening. Patient to OR at 11 am today for RLE bypass. Denies f/n/v/c/sob/cp at this time. Objective - Vital Signs/Intake and Output Vital Signs (last 24 hours): Temp Pulse Resp BP Pulse Ox 98.1 F 90 18 157/73 H 96 11/16/16 07:05 11/16/16 07:05 11/16/16 07:05 11/16/16 09:08 11/16/16 07:05 Intake and Output: 11/16/16 11/16/16 06:59 18:59 Intake Total 692 Balance 692 - Medications Medications: Current Medications Acyclovir (Zovirax 5% Oint) 0 gm EXT Q3H [facility] Last Admin: 11/16/16 09:23 Dose: Not Given Amlodipine Besylate (Norvasc) 10 mg PO DAILY [facility] Last Admin: 11/16/16 09:08 Dose: 10 mg Aspirin (Ecotrin) 81 mg PO DAILY [facility] Last Admin: 11/16/16 09:08 Dose: 81 mg Bacitracin (Bacitracin) 1 ea TOP DAILY [facility] Last Admin: 11/16/16 09:19 Dose: Not Given Calcium Acetate (Phoslo) 2,668 mg PO TIDCC [facility] Last Admin: 11/16/16 09:21 Dose: Not Given Carvedilol (Coreg) 12.5 mg PO BID [facility] Last Admin: 11/16/16 09:08 Dose: 12.5 mg Clotrimazole (Lotrimin 1%) 1 gm TOP BID [facility] Last Admin: 11/16/16 09:19 Dose: Not Given Epoetin Alec (Procrit) 10,000 unit SC MWF [facility] Last Admin: 11/14/16 09:27 Dose: 10,000 unit Epoetin Alec (Procrit) 3,000 unit IV MWF [facility] Last Admin: 11/12/16 12:39 Dose: Not Given Ferrous Sulfate (Feosol) 325 mg PO DAILY [facility] Last Admin: 11/16/16 09:09 Dose: 325 mg Vancomycin HCl 1 gm/ Sodium (Chloride) 250 mls @ 166.7 mls/hr IVPB [facility]WF [facility] Last Admin: 11/16/16 09:33 Dose: 166.7 mls/hr Insulin Glargine (Lantus) 40 unit SC [facility] Last Admin: 11/15/16 22:00 Dose: Not Given Insulin Human Regular (Novolin R) 0 unit SC ACHS [facility] PRN Reason: Protocol Last Admin: 11/16/16 09:20 Dose: Not Given Losartan Potassium (Cozaar) 100 mg PO DAILY@1800 [facility] Last Admin: 11/15/16 18:27 Dose: 100 mg Morphine Sulfate (Morphine) 2 mg IVP Q3 PRN PRN Reason: pain Last Admin: 11/16/16 09:31 Dose: 2 mg Petrolatum (Desitin Original) 0 gm TOP QID [facility] Last Admin: 11/16/16 09:19 Dose: Not Given Rosuvastatin Calcium (Crestor) 2.5 mg PO [facility] Last Admin: 11/15/16 22:00 Dose: Not Given Rosuvastatin Calcium (Crestor) 10 mg PO [facility] Last Admin: 11/15/16 22:00 Dose: Not Given Saccharomyces Boulardii (Florastor) 250 mg PO TID [facility] Last Admin: 11/16/16 09:19 Dose: Not Given - Labs Labs: 11/16/16 05:54 11/16/16 05:54 PT 11.0 SECONDS (9.7-12.2) 11/07/16 17:26 INR 1.0 11/07/16 17:26 APTT 27 SECONDS (21-34) 10/26/16 18:15 - Constitutional Appears: Well, Non-toxic, No Acute Distress - Extremities Exam Additional comments: DERMATOLOGIC: Right foot hallux is ischemic with dusky discoloration, subcutaneous blistering , moderate drainage from first interspace with small opening in the skin. Hyperpigmenation of lesser digits as well. Left hallux has mild hyperpigmentation and hallucal toenail appears to be lysing somewhat from proximal border VASCULAR: DP/PT pulses non palpable, skin is the right foot is slightly cool NEUROLOGIC: Gross sensation, motor function intact ORTHOPEDIC: Pain on palpation to the right forefoot - Neurological Exam Neurological Exam: Alert, Awake - Psychiatric Exam Psychiatric exam: Normal Affect, Normal Mood Assessment and Plan - Assessment and Plan (Free Text) Assessment: 51 year old female with right foot ischemic and gangrene hallux Plan: Patient seen and evaluated at bedside All the questions and concerns were addressed Land and vitals were reviewed Per Vascular: RLE Fem-Pop bypass today at 11 am Discussed with attending Dr. Aldrich Podiatry will continue to follow while patient remain in house <Dre Aldrich D - Last Filed: 11/16/16 12:05> Objective - Vital Signs/Intake and Output Vital Signs (last 24 hours): Temp Pulse Resp BP Pulse Ox 98.1 F 86 18 157/73 H 96 11/16/16 07:05 11/16/16 08:10 11/16/16 07:05 11/16/16 09:08 11/16/16 07:05 Intake and Output: 11/16/16 11/16/16 06:59 18:59 Intake Total 692 Balance 692 - Medications Medications: Current Medications Acyclovir (Zovirax 5% Oint) 0 gm EXT Q3H [facility] Last Admin: 11/16/16 09:23 Dose: Not Given Amlodipine Besylate (Norvasc) 10 mg PO DAILY [facility] Last Admin: 11/16/16 09:08 Dose: 10 mg Aspirin (Ecotrin) 81 mg PO DAILY [facility] Last Admin: 11/16/16 09:08 Dose: 81 mg Bacitracin (Bacitracin) 1 ea TOP DAILY [facility] Last Admin: 11/16/16 09:19 Dose: Not Given Calcium Acetate (Phoslo) 2,668 mg PO TIDCC [facility] Last Admin: 11/16/16 09:21 Dose: Not Given Carvedilol (Coreg) 12.5 mg PO BID [facility] Last Admin: 11/16/16 09:08 Dose: 12.5 mg Clotrimazole (Lotrimin 1%) 1 gm TOP BID [facility] Last Admin: 11/16/16 09:19 Dose: Not Given Epoetin Alec (Procrit) 10,000 unit SC MWF [facility] Last Admin: 11/14/16 09:27 Dose: 10,000 unit Epoetin Alec (Procrit) 3,000 unit IV F [facility] Last Admin: 11/12/16 12:39 Dose: Not Given Ferrous Sulfate (Feosol) 325 mg PO DAILY [facility] Last Admin: 11/16/16 09:09 Dose: 325 mg Vancomycin HCl 1 gm/ Sodium (Chloride) 250 mls @ 166.7 mls/hr IVPB [facility] Last Admin: 11/16/16 09:33 Dose: 166.7 mls/hr Insulin Glargine (Lantus) 40 unit SC [facility] Last Admin: 11/15/16 22:00 Dose: Not Given Insulin Human Regular (Novolin R) 0 unit SC ACHS [facility] PRN Reason: Protocol Last Admin: 11/16/16 09:20 Dose: Not Given Losartan Potassium (Cozaar) 100 mg PO DAILY@1800 [facility] Last Admin: 11/15/16 18:27 Dose: 100 mg Morphine Sulfate (Morphine) 2 mg IVP Q3 PRN PRN Reason: pain Last Admin: 11/16/16 09:31 Dose: 2 mg Petrolatum (Desitin Original) 0 gm TOP QID [facility] Last Admin: 11/16/16 09:19 Dose: Not Given Rosuvastatin Calcium (Crestor) 2.5 mg PO [facility] Last Admin: 11/15/16 22:00 Dose: Not Given Rosuvastatin Calcium (Crestor) 10 mg PO [facility] Last Admin: 11/15/16 22:00 Dose: Not Given Saccharomyces Boulardii (Florastor) 250 mg PO TID [facility] Last Admin: 11/16/16 09:19 Dose: Not Given - Labs Labs: 11/16/16 05:54 11/16/16 05:54 PT 11.0 SECONDS (9.7-12.2) 11/07/16 17:26 INR 1.0 11/07/16 17:26 APTT 27 SECONDS (21-34) 10/26/16 18:15 Attending/Attestation - Attestation I have fully participated in the care of the patient.: Yes I have reviewed all pertinent clinical information, including history, physical exam and plan: Yes
[2016-11-16] MEDS ORDERED: ceFAZolin IV 1 gm in Dextrose 0 GM/0 ML BAG IVPB ONE (10:33)
[2016-11-16] MEDS ORDERED: ceFAZolin IV 2 gm in Dextrose 0 GM/0 ML BAG IVPB ONE (10:33)
[2016-11-16] MEDS ORDERED: Papaverine Hydrochloride 30 mg/ml (2ml) ONE (10:33)
[2016-11-16] MEDS ORDERED: Iohexol 240 (50 ml) ONE (10:34)
[2016-11-16] MEDS ORDERED: Sodium Chloride 0.9% 1,000 ML IV ONE ×3 (12:10→19:10)
[2016-11-16] MEDS ORDERED: Midazolam 2 MG/2 ML VIAL ONE (12:11)
[2016-11-16] MEDS ORDERED: Propofol 10 mg/ml Inj (20 ML) ONE (12:11)
--- NOTE | 2016-11-16 13:21 | CP.PCM.PN ---
Subjective - Date & Time of Evaluation Date of Evaluation: 11/16/16 Time of Evaluation: 13:18 - Subjective Subjective: Sent to OR for LE vascular bypass s/p blood transfusions - Hg increased to 10.1 No reported CPs, f,c,n,f, diarrhea PD has been going well BP controlled. Patient optimized for surgery. Objective - Vital Signs/Intake and Output Vital Signs (last 24 hours): Temp Pulse Resp BP Pulse Ox 98.1 F 86 18 157/73 H 96 11/16/16 07:05 11/16/16 08:10 11/16/16 07:05 11/16/16 09:08 11/16/16 07:05 Intake and Output: 11/16/16 11/16/16 06:59 18:59 Intake Total 692 Balance 692 - Medications Medications: Current Medications Acyclovir (Zovirax 5% Oint) 0 gm EXT Q3H [facility] Last Admin: 11/16/16 09:23 Dose: Not Given Amlodipine Besylate (Norvasc) 10 mg PO DAILY [facility] Last Admin: 11/16/16 09:08 Dose: 10 mg Aspirin (Ecotrin) 81 mg PO DAILY [facility] Last Admin: 11/16/16 09:08 Dose: 81 mg Bacitracin (Bacitracin) 1 ea TOP DAILY [facility] Last Admin: 11/16/16 09:19 Dose: Not Given Calcium Acetate (Phoslo) 2,668 mg PO TIDCC [facility] Last Admin: 11/16/16 09:21 Dose: Not Given Carvedilol (Coreg) 12.5 mg PO BID [facility] Last Admin: 11/16/16 09:08 Dose: 12.5 mg Clotrimazole (Lotrimin 1%) 1 gm TOP BID [facility] Last Admin: 11/16/16 09:19 Dose: Not Given Epoetin Alec (Procrit) 10,000 unit SC MWF [facility] Last Admin: 11/14/16 09:27 Dose: 10,000 unit Epoetin Alec (Procrit) 3,000 unit [place] [facility] Last Admin: 11/12/16 12:39 Dose: Not Given Ferrous Sulfate (Feosol) 325 mg PO DAILY [facility] Last Admin: 11/16/16 09:09 Dose: 325 mg Vancomycin HCl 1 gm/ Sodium (Chloride) 250 mls @ 166.7 mls/hr IVPB [facility] Last Admin: 11/16/16 09:33 Dose: 166.7 mls/hr Insulin Glargine (Lantus) 40 unit SC [facility] Last Admin: 11/15/16 22:00 Dose: Not Given Insulin Human Regular (Novolin R) 0 unit SC ACHS [facility] PRN Reason: Protocol Last Admin: 11/16/16 09:20 Dose: Not Given Losartan Potassium (Cozaar) 100 mg PO DAILY@1800 [facility] Last Admin: 11/15/16 18:27 Dose: 100 mg Morphine Sulfate (Morphine) 2 mg IVP Q3 PRN PRN Reason: pain Last Admin: 11/16/16 09:31 Dose: 2 mg Petrolatum (Desitin Original) 0 gm TOP QID [facility] Last Admin: 11/16/16 09:19 Dose: Not Given Rosuvastatin Calcium (Crestor) 2.5 mg PO [facility] Last Admin: 11/15/16 22:00 Dose: Not Given Rosuvastatin Calcium (Crestor) 10 mg PO [facility] Last Admin: 11/15/16 22:00 Dose: Not Given Saccharomyces Boulardii (Florastor) 250 mg PO TID [facility] Last Admin: 11/16/16 09:19 Dose: Not Given - Labs Labs: 11/16/16 05:54 11/16/16 05:54 PT 11.0 SECONDS (9.7-12.2) 11/07/16 17:26 INR 1.0 11/07/16 17:26 APTT 27 SECONDS (21-34) 10/26/16 18:15 - Constitutional Appears: No Acute Distress, Chronically Ill - Head Exam Head Exam: ATRAUMATIC, NORMAL INSPECTION - Neck Exam Neck Exam: Normal Inspection. absent: Tenderness - Respiratory Exam Respiratory Exam: Clear to Ausculation Bilateral, NORMAL BREATHING PATTERN - Cardiovascular Exam Cardiovascular Exam: REGULAR RHYTHM, +S1 - GI/Abdominal Exam GI & Abdominal Exam: Soft. absent: Tenderness - Extremities Exam Extremities Exam: Calf Tenderness, Tenderness - Neurological Exam Neurological Exam: Alert, CN II-XII Intact - Skin Skin Exam: Dry, Warm Assessment and Plan (1) Type 2 diabetes mellitus with diabetic nephropathy Status: Acute (2) Chronic anemia Status: Acute (3) Foot infection Status: Acute (4) Lower limb ischemia Status: Acute (5) ESRD on peritoneal dialysis Status: Acute (6) Hypertension Status: Acute - Assessment and Plan (Free Text) Plan: Same PD - on hold in OR Surgery now Same meds Will follow up post-op
[2016-11-16] MEDS ORDERED: Rocuronium 10 mg/ml (5 ml) ONE (13:41)
[2016-11-16] MEDS ORDERED: Epoetin Alfa Dialysis 3000 UNIT/ML Inj IV SCH (14:00)
[2016-11-16] MEDS ORDERED: Iodixanol 320 MG/ML 200 ML BOTTLE IV ONE (15:50)
[2016-11-16] MEDS ORDERED: Neostigmine Methylsulfate 3mg/3ml Syringe IV ONE (18:08)
--- NOTE | 2016-11-16 18:38 | PCM.SURG1 ---
Surgeon's Initial Post Op Note - Surgeon's Notes Surgeon: Dr Clark Soa Integration Developer: Dr Lopez PGY2 Type of Anesthesia: General Endo Pre-Operative Diagnosis: Right lower extremity PAD Operative Findings: see report Post-Operative Diagnosis: as above Operation Performed: right femoral-popliteal bypass with reverse saphenous vein graft Specimen/Specimens Removed: none Estimated Blood Loss: EBL {In ML}: 500 Blood Products Given: N/A Drains Used: No Drains Post-Op Condition: Good Date of Surgery/Procedure: 11/16/16 Time of Surgery/Procedure: 18:38
[2016-11-16] MEDS ORDERED: HYDROmorphone 1 mg/ml ISec IVP PRN (18:40)
[2016-11-16] MEDS ORDERED: HYDROmorphone 0.5 mg/0.5 ml ISec IVP PRN (18:41)
--- NOTE | 2016-11-16 19:53 | OP ---
PROCEDURE DATE: 11/16/2016 PREOPERATIVE DIAGNOSIS: Gangrene of both feet, right worse than left. PROCEDURE CARRIED OUT: Right femoral popliteal bypass with reverse saphenous vein with intraoperativ e arteriogram. SURGEON: Harman Clark Jr., MD PROJECT MANAGEMENT INSTRUCTOR: ____, resident. ANESTHESIOLOGIST: Dr. Butch Dr. ____. INDICATIONS: The patient is a 51-year-old diabetic, hypertensive woman on dialysis who smokes who mendosa s gangrene of the feet who was admitted to the hospital. She also had a coronary event approximately 2 weeks ago, which required further evaluation. Eventually it was felt after angiographic evaluatio n that she had coronary artery disease, but did not require any intervention at this time. OPERATIVE FINDINGS: 1. The vein was of marginal caliber measuring just over 3 mm in diameter. 2. At the completion of the proximal anastomosis, there was no flow to the graft, which required bobby ing down and redoing the proximal anastomosis which was due to a kink in the anastomotic area. The r est of the intraoperative findings were unremarkable. Completion arteriogram showed brisk and comple te flow into the tibial vessels from the popliteal. PROCEDURE: The patient was given general anesthesia, intravenous antibiotics. The vein which had be en previously marked on the skin was dissected out and as I said it was of marginal quality. After i t was dissected free, it was dilated, etc. It was slightly better, then dissected out the popliteal artery above the knee which was again somewhat difficult due to dense induration in the area. We dis sected out in the groin and again this was more difficult because her abdomen with peritoneal dialysi s was quite protuberant, we had to dissect laterally to avoid entering the peritoneal cavity. After we had dissected out the vessels, we created a subsartorial tunnel. We gave heparin. We used a prox imal tourniquet, carried out the distal anastomosis which went uneventfully, brought the graft out th rough the subsartorial tunnel and anastomosed in the groin to the common femoral artery. This initia lly went quite well; however, there was poor flow and we had to redo the proximal anastomosis. We th en closed the wounds after completing this, and then final completion films which are very good, good flow through the graft, good Doppler signals. We then closed the wounds with Monocryl and Vicryl scott eren skin clips applied. Blood loss of procedure was approximately 500 mL. OPERATION CARRIED OUT: Right femoral popliteal bypass with reverse saphenous vein with intraoperativ e arteriogram. Harman Clark Jr., MD cc: 56 TT: 11/16/2016 19:52:48 jn
[2016-11-16] MEDS: Sodium Chloride 0.9% 1,000 ML IV SCH (20:39)
--- NOTE | 2016-11-16 21:00 | CP.PCM.PN ---
Subjective - Date & Time of Evaluation Date of Evaluation: 11/16/16 Time of Evaluation: 20:58 - Subjective Subjective: pt underwent fempop bypass post op in ICU blood loss noted will check cbc and cmp accucheck peritoneal dialysis as per nephro pain managment spoke to family icu monitoring Objective - Vital Signs/Intake and Output Vital Signs (last 24 hours): Temp Pulse Resp BP Pulse Ox 96 F L 77 10 L 127/67 100 11/16/16 19:30 11/16/16 19:30 11/16/16 19:30 11/16/16 19:30 11/16/16 19:30 - Medications Medications: Current Medications Acyclovir (Zovirax 5% Oint) 0 gm EXT Q3H [facility] Last Admin: 11/16/16 20:42 Dose: Not Given Amlodipine Besylate (Norvasc) 10 mg PO DAILY [facility] Last Admin: 11/16/16 09:08 Dose: 10 mg Aspirin (Ecotrin) 81 mg PO DAILY [facility] Last Admin: 11/16/16 09:08 Dose: 81 mg Bacitracin (Bacitracin) 1 ea TOP DAILY [facility] Last Admin: 11/16/16 09:19 Dose: Not Given Calcium Acetate (Phoslo) 2,668 mg PO TIDCC [facility] Last Admin: 11/16/16 13:44 Dose: Not Given Carvedilol (Coreg) 12.5 mg PO BID [facility] Last Admin: 11/16/16 09:08 Dose: 12.5 mg Clotrimazole (Lotrimin 1%) 1 gm TOP BID [facility] Last Admin: 11/16/16 09:19 Dose: Not Given Epoetin Alec (Procrit) 10,000 unit [place] [facility]: 11/28/16 23:59 Epoetin Alec (Procrit) 3,000 unit [place] [facility] Ferrous Sulfate (Feosol) 325 mg PO DAILY [facility] Last Admin: 11/16/16 09:09 Dose: 325 mg Hydromorphone HCl (Dilaudid) 1 mg IVP Q3H PRN PRN Reason: Pain, Mild (1-3) Hydromorphone HCl (Dilaudid) 0.5 mg IVP Q10M PRN PRN Reason: Pain, moderate (4-7) Vancomycin HCl 1 gm/ Sodium (Chloride) 250 mls @ 166.7 mls/hr IV MWF [facility] Last Admin: 11/16/16 09:33 Dose: 166.7 mls/hr Sodium Chloride (Sodium Chloride 0.9%) 1,000 mls @ 100 mls/hr IV .Q10H [facility] Last Admin: 11/16/16 20:39 Dose: 100 mls/hr Insulin Glargine (Lantus) 40 unit SC [facility] Last Admin: 11/15/16 22:00 Dose: Not Given Insulin Human Regular (Novolin R) 0 unit SC ACHS [facility] PRN Reason: Protocol Last Admin: 11/16/16 09:20 Dose: Not Given Losartan Potassium (Cozaar) 100 mg PO DAILY@1800 [facility] Last Admin: 11/15/16 18:27 Dose: 100 mg Morphine Sulfate (Morphine) 2 mg IVP Q3 PRN PRN Reason: pain Last Admin: 11/16/16 09:31 Dose: 2 mg Petrolatum (Desitin Original) 0 gm TOP QID [facility] Last Admin: 11/16/16 13:43 Dose: Not Given Rosuvastatin Calcium (Crestor) 2.5 mg PO [facility] Last Admin: 11/15/16 22:00 Dose: Not Given Rosuvastatin Calcium (Crestor) 10 mg PO [facility] Last Admin: 11/15/16 22:00 Dose: Not Given Saccharomyces Boulardii (Florastor) 250 mg PO TID [facility] Last Admin: 11/16/16 13:43 Dose: Not Given - Labs Labs: 11/16/16 05:54 11/16/16 05:54 PT 11.0 SECONDS (9.7-12.2) 11/07/16 17:26 INR 1.0 11/07/16 17:26 APTT 27 SECONDS (21-34) 10/26/16 18:15 Assessment and Plan (1) Foot infection Status: Acute (2) Lower limb ischemia Status: Acute (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
[2016-11-16 21:44] LABS: POTASSIUM 4.5 mmol/L (3.6-5.2)
[2016-11-16 21:45] LABS: BASO # 0.1 K/uL (0.0-0.2); BASO % 0.3 % (0.0-2.0); EOS # 0.1 K/uL (0.0-0.7); EOS % 0.5 % (0.0-4.0); HEMATOCRIT 23.4 % (34.0-47.0); LYMPH # 1.6 K/uL (1.0-4.3); LYMPH % 8.2 % (20.0-40.0); MEAN CELL VOLUME 96.8 fL (81.0-99.0); MEAN CORPUSCULAR HEMOGLOBIN 30.8 pg (27.0-31.0); MEAN CORPUSCULAR HGB CONC 31.8 g/dL (33.0-37.0); MEAN PLATELET VOLUME 8.3 fL (7.2-11.7); MONO # 0.9 K/uL (0.0-0.8); MONO % 4.8 % (0.0-10.0); NRBC % 0.1 % (0.0-2.0); PLATELET COUNT 155 K/uL (130-400); RED CELL DISTRIBUTION WIDTH 21.1 % (11.5-14.5)
[2016-11-16 21:47] LABS: ALB/GLOB RATIO 0.9 (1.0-2.1); BILIRUBIN,TOTAL 0.3 mg/dL (0.2-1.3); CALCIUM 7.7 mg/dl (8.6-10.4); TOTAL PROTEIN 5.1 g/dL (6.3-8.3)
[2016-11-16 21:53] LABS: WHITE BLOOD COUNT 19.6 K/uL (4.8-10.8)
--- NOTE | 2016-11-16 22:30 | CP.PCM.CON ---
History of Present Illness - History of Present Illness History of Present Illness: 51 F with h/o PD, IDDM, htn, CAD, recent nstemi, right foot gangrene, being observed in ICU post right fem-pop bypass, blood loss 500ml, pt was under ga. Post procedure vs had been stable, labs drawn, patient is currently awake, denies chest pain, sob and currently assisting her PD. Denies excruciating pain in the surgical site. Patient is calm. PMH as above PSH pd, c section, picc line in right arm Allergies NKDA Social non smoker, denies alcohol, illicit drugs Family history not contributory Meds reviewed Review of Systems - Review of Systems All systems: reviewed and no additional remarkable complaints except (HPI) Past Patient History - Infectious Disease Hx of Infectious Diseases: None - Past Medical History & Family History Past Medical History?: Yes - Past Social History Smoking Status: Never Smoked Alcohol: None Drugs: Denies Home Situation {Lives}: With Family - CARDIAC Hx Hypertension: Yes - PULMONARY Hx Bronchitis: Yes Hx Pneumonia: Yes - RENAL Hx Chronic Kidney Disease: Yes - ENDOCRINE/METABOLIC Hx Endocrine Disorders: Yes Hx Diabetes Mellitus Type 2: Yes - HEMATOLOGICAL/ONCOLOGICAL Hx Anemia: Yes - INTEGUMENTARY Hx Dermatological Problems: Yes Hx Eczema: Yes - MUSCULOSKELETAL/RHEUMATOLOGICAL Hx Falls: Yes - GENITOURINARY/GYNECOLOGICAL Hx Genitourinary Disorders: Yes (DX: RENAL FAILURE) - PSYCHIATRIC Hx Substance Use: No - SURGICAL HISTORY Hx Surgeries: Yes Hx Section: Yes Hx Eye Surgery: Yes (INSERT "GAS" BUBBLE BOTH EYES) Hx Tubal Ligation: Yes Hx Vascular Access Device: Yes (R SC HD cath) Other/Comment: I&D GROIN; 12/30/14 LAPAROSCOPIC INSERTION PERITONEAL DIALYSIS CATHETER. 01/14/15 REVISION DONE OF PERITIONEAL DIALYSIS CATH. - ANESTHESIA Hx Anesthesia: Yes Hx Anesthesia Reactions: No Hx Malignant Hyperthermia: No Meds Allergies/Adverse Reactions: Allergies Allergy/AdvReac Type Severity Reaction Status Date / Time shrimp Allergy Verified 10/26/16 09:55 - Medications Medications: Current Medications Acyclovir (Zovirax 5% Oint) 0 gm EXT Q3H [facility] Last Admin: 11/16/16 20:42 Dose: Not Given Amlodipine Besylate (Norvasc) 10 mg PO DAILY [facility] Last Admin: 11/16/16 09:08 Dose: 10 mg Aspirin (Ecotrin) 81 mg PO DAILY [facility] Last Admin: 11/16/16 09:08 Dose: 81 mg Bacitracin (Bacitracin) 1 ea TOP DAILY [facility] Last Admin: 11/16/16 09:19 Dose: Not Given Calcium Acetate (Phoslo) 2,668 mg PO TIDCC [facility] Last Admin: 11/16/16 13:44 Dose: Not Given Carvedilol (Coreg) 12.5 mg PO BID [facility] Last Admin: 11/16/16 09:08 Dose: 12.5 mg Clotrimazole (Lotrimin 1%) 1 gm TOP BID [facility] Last Admin: 11/16/16 09:19 Dose: Not Given Epoetin Alec (Procrit) 10,000 unit SC [facility] [place] Stop: 11/28/16 23:59 Epoetin Alec (Procrit) 3,000 unit IV [facility] [place] Ferrous Sulfate (Feosol) 325 mg PO DAILY [facility] Last Admin: 11/16/16 09:09 Dose: 325 mg Hydromorphone HCl (Dilaudid) 1 mg IVP Q3H PRN PRN Reason: Pain, Mild (1-3) Last Admin: 11/16/16 21:25 Dose: 1 mg Hydromorphone HCl (Dilaudid) 0.5 mg IVP Q10M PRN PRN Reason: Pain, moderate (4-7) Vancomycin HCl 1 gm/ Sodium (Chloride) 250 mls @ 166.7 mls/hr IVPB [facility] [place] Last Admin: 11/16/16 09:33 Dose: 166.7 mls/hr Sodium Chloride (Sodium Chloride 0.9%) 1,000 mls @ 100 mls/hr IV .Q10H [facility] Last Admin: 11/16/16 20:39 Dose: 100 mls/hr Insulin Glargine (Lantus) 40 unit SC HS [facility] Last Admin: 11/15/16 22:00 Dose: Not Given Insulin Human Regular (Novolin R) 0 unit SC ACHS [facility] PRN Reason: Protocol Last Admin: 11/16/16 21:48 Dose: Not Given Losartan Potassium (Cozaar) 100 mg PO DAILY@1800 [facility] Last Admin: 11/15/16 18:27 Dose: 100 mg Morphine Sulfate (Morphine) 2 mg IVP Q3 PRN PRN Reason: pain Last Admin: 11/16/16 09:31 Dose: 2 mg Petrolatum (Desitin Original) 0 gm TOP QID [facility] Last Admin: 11/16/16 13:43 Dose: Not Given Rosuvastatin Calcium (Crestor) 2.5 mg PO [facility] Last Admin: 11/15/16 22:00 Dose: Not Given Rosuvastatin Calcium (Crestor) 10 mg PO [facility] Last Admin: 11/15/16 22:00 Dose: Not Given Saccharomyces Boulardii (Florastor) 250 mg PO TID [facility] Last Admin: 11/16/16 13:43 Dose: Not Given Physical Exam - Additional Findings Additional findings: * HEENT LUIS * Neck Supple * Chest clear, no wheezes, no rales * CVS Regular, no gallop or rub * PA soft, obese, nt, bs present * Ext right leg has splint behing knee, pulses, dp and pt not palpable, gangrene noticed in right 1st and 2nd toe changes extending proximally to distal 1/3 of foot, pulses felt with doppler, very reduced pulses in the left foot as well * Skin normal turgor, clinically euvolemic * PIN SETTER conversing, moving all extremities Results - Vital Signs Recent Vital Signs: Last Vital Signs Temp 96 F L 11/16/16 19:30 Pulse 77 11/16/16 19:30 Resp 10 L 11/16/16 19:30 BP 127/67 11/16/16 19:30 Pulse Ox 100 11/16/16 19:30 - Labs Result Diagrams: 11/21/16 07:29 11/21/16 07:29 Labs: Laboratory Results - last 24 hr 11/15/16 11/15/16 11/16/16 16:39 21:56 05:54 WBC 10.4 RBC 3.15 L Hgb 10.1 L D Hct 30.0 L MCV 95.5 D MCH 32.0 H MCHC 33.5 RDW 20.3 H Plt Count 190 MPV 8.6 Sodium Potassium Chloride Carbon Dioxide Anion Gap BUN Creatinine Est GFR ( Amer) Est GFR (Non-Af Amer) POC Glucose (mg/dL) 267 H Random Glucose Calcium Total Bilirubin AST ALT Alkaline Phosphatase Total Protein Albumin Globulin Albumin/Globulin Ratio Urine HCG, Qual Blood Type O POSITIVE Antibody Screen Negative 11/16/16 11/16/16 11/16/16 05:54 06:47 11:15 WBC RBC Hgb Hct MCV MCH MCHC RDW Plt Count MPV Sodium 134 Potassium 4.0 Chloride 94 L Carbon Dioxide 26 Anion Gap 18 BUN 56 H Creatinine 14.8 H* Est GFR ( Amer) 3 Est GFR (Non-Af Amer) 3 POC Glucose (mg/dL) 182 H Random Glucose 189 H Calcium 8.9 Total Bilirubin AST ALT Alkaline Phosphatase Total Protein Albumin Globulin Albumin/Globulin Ratio Urine HCG, Qual Negative Blood Type Antibody Screen 11/16/16 11/16/16 11/16/16 18:39 21:29 21:47 WBC RBC Hgb Hct MCV MCH MCHC RDW Plt Count MPV Sodium 135 Potassium 4.5 Chloride 103 Carbon Dioxide 22 Anion Gap 15 BUN 55 H Creatinine Est GFR ( Amer) 3 Est GFR (Non-Af Amer) 3 POC Glucose (mg/dL) 105 122 H Random Glucose 121 H Calcium 7.7 L Total Bilirubin 0.3 AST 14 D ALT 25 Alkaline Phosphatase 65 Total Protein 5.1 L Albumin 2.4 L Globulin 2.7 Albumin/Globulin Ratio 0.9 L Urine HCG, Qual Blood Type Antibody Screen Assessment & Plan - Assessment and Plan (Free Text) Assessment: * S/p right fem-pop bypass, 500ml blood loss * CAD with nstemi recently * ESRD on PD * IDDM * Foot infection, gangrenous changes in distal right foot. Plan: * Monitory labs including cardiac enzymes * PD * Continue rest of meds * Monitory post procedure in ICU * GI/DVT prophylaxis * See orders for detail.
--- NOTE | 2016-11-16 22:46 | CP.PCM.PN ---
Subjective - Date & Time of Evaluation Date of Evaluation: 11/16/16 Time of Evaluation: 18:00 - Subjective Subjective: Patient s/p Vascular bypass Objective - Vital Signs/Intake and Output Vital Signs (last 24 hours): Temp Pulse Resp BP Pulse Ox 96 F L 77 10 L 127/67 100 11/16/16 19:30 11/16/16 19:30 11/16/16 19:30 11/16/16 19:30 11/16/16 19:30 - Medications Medications: Current Medications Acyclovir (Zovirax 5% Oint) 0 gm EXT Q3H [facility] Last Admin: 11/16/16 20:42 Dose: Not Given Amlodipine Besylate (Norvasc) 10 mg PO DAILY [facility] Last Admin: 11/16/16 09:08 Dose: 10 mg Aspirin (Ecotrin) 81 mg PO DAILY [facility] Last Admin: 11/16/16 09:08 Dose: 81 mg Bacitracin (Bacitracin) 1 ea TOP DAILY [facility] Last Admin: 11/16/16 09:19 Dose: Not Given Calcium Acetate (Phoslo) 2,668 mg PO TIDCC [facility] Last Admin: 11/16/16 13:44 Dose: Not Given Carvedilol (Coreg) 12.5 mg PO BID [facility] Last Admin: 11/16/16 09:08 Dose: 12.5 mg Clotrimazole (Lotrimin 1%) 1 gm TOP BID [facility] Last Admin: 11/16/16 09:19 Dose: Not Given Epoetin Alec (Procrit) 10,000 unit SC [facility] Stop: 11/28/16 23:59 Epoetin Alec (Procrit) 3,000 unit IV [facility] Ferrous Sulfate (Feosol) 325 mg PO DAILY [facility] Last Admin: 11/16/16 09:09 Dose: 325 mg Hydromorphone HCl (Dilaudid) 0.5 mg IVP Q10M PRN PRN Reason: Pain, moderate (4-7) Hydromorphone HCl (Dilaudid) 0.5 mg IVP Q3H PRN PRN Reason: Pain, Mild (1-3) Vancomycin HCl 1 gm/ Sodium (Chloride) 250 mls @ [facility]7 [facility]ls[facility] Admin: 11/16/16 09:33 Dose: 166.7 mls/hr Sodium Chloride (Sodium Chloride 0.9%) 1,000 mls @ 100 mls/hr IV .Q10H [facility] Last Admin: 11/16/16 20:39 Dose: 100 mls/hr Insulin Glargine (Lantus) 40 unit SC HS [facility] Last Admin: 11/15/16 22:00 Dose: Not Given Insulin Human Regular (Novolin R) 0 unit SC ACHS [facility] PRN Reason: Protocol Last Admin: 11/16/16 21:48 Dose: Not Given Losartan Potassium (Cozaar) 100 mg PO DAILY@1800 [facility] Last Admin: 11/15/16 18:27 Dose: 100 mg Morphine Sulfate (Morphine) 2 mg IVP Q3 PRN PRN Reason: pain Last Admin: 11/16/16 09:31 Dose: 2 mg Petrolatum (Desitin Original) 0 gm TOP QID [facility] Last Admin: 11/16/16 13:43 Dose: Not Given Rosuvastatin Calcium (Crestor) 2.5 mg PO [facility] Last Admin: 11/15/16 22:00 Dose: Not Given Rosuvastatin Calcium (Crestor) 10 mg PO [facility] Last Admin: 11/15/16 22:00 Dose: Not Given Saccharomyces Boulardii (Florastor) 250 mg PO TID [facility] Last Admin: 11/16/16 13:43 Dose: Not Given - Labs Labs: 11/16/16 21:29 11/16/16 21:29 PT 11.0 SECONDS (9.7-12.2) 11/07/16 17:26 INR 1.0 11/07/16 17:26 APTT 27 SECONDS (21-34) 10/26/16 18:15
[2016-11-16 22:58] LABS: NEUTROPHIL 84 % (50-75); TOTAL CELLS COUNTED 100
[2016-11-17] MEDS: Rosuvastatin Calcium 2.5 mg Tab PO SCH ×2 (00:37→21:35)
[2016-11-17] MEDS: Zinc Oxide Topical 30 gm Tube TOP SCH ×5 (00:37→21:14)
[2016-11-17] MEDS: Acyclovir 5% Oint (15 gm) EXT SCH ×9 (00:38→21:15)
[2016-11-17] MEDS: (Lantus) Insulin Glargine, Recombinant SC SCH ×2 (00:42→21:34)
[2016-11-17] MEDS: HYDROmorphone 0.5 mg/0.5 ml ISec IVP PRN ×4 (04:21→21:42)
[2016-11-17] MEDS: Sodium Chloride 0.9% 1,000 ML IV SCH (04:30)
[2016-11-17 07:17] LABS: BASO # 0.1 K/uL (0.0-0.2); BASO % 0.4 % (0.0-2.0); EOS % 0.3 % (0.0-4.0); HEMATOCRIT 25.4 % (34.0-47.0); LYMPH # 1.3 K/uL (1.0-4.3); LYMPH % 7.7 % (20.0-40.0); MEAN CELL VOLUME 94.8 fL (81.0-99.0); MEAN CORPUSCULAR HEMOGLOBIN 30.7 pg (27.0-31.0); MEAN CORPUSCULAR HGB CONC 32.3 g/dL (33.0-37.0); MEAN PLATELET VOLUME 8.6 fL (7.2-11.7); MONO # 0.9 K/uL (0.0-0.8); MONO % 5.7 % (0.0-10.0); PLATELET COUNT 155 K/uL (130-400); RED CELL DISTRIBUTION WIDTH 20.6 % (11.5-14.5); WHITE BLOOD COUNT 16.6 K/uL (4.8-10.8)
[2016-11-17 07:27] LABS: POTASSIUM 4.9 mmol/L (3.6-5.2)
[2016-11-17 07:29] LABS: BILIRUBIN,TOTAL 0.4 mg/dL (0.2-1.3)
[2016-11-17 07:30] LABS: CALCIUM 7.3 mg/dl (8.6-10.4); MAGNESIUM 2.2 mg/dL (1.6-2.3); PHOSPHOROUS 6.6 mg/dL (2.5-4.5)
[2016-11-17 08:16] LABS: NEUTROPHIL 86 % (50-75); TOTAL CELLS COUNTED 100
[2016-11-17 08:18] LABS: LARGE PLATELETS PRESENT
--- NOTE | 2016-11-17 09:39 | CP.PCM.PN ---
Subjective - Date & Time of Evaluation Date of Evaluation: 11/17/16 Time of Evaluation: 08:00 - Subjective Subjective: tolerating po c/o incisional pain fluid appears clear in PD effluent bp well controlled right foot ischemic appearing no chest pain no sob no headache no rash no nausea no sinus tenderness no increased thirst Objective - Vital Signs/Intake and Output Vital Signs (last 24 hours): Temp Pulse Resp BP Pulse Ox 97.6 F 84 16 120/55 L 100 11/17/16 05:00 11/17/16 07:00 11/17/16 07:00 11/17/16 06:30 11/17/16 07:00 Intake and Output: 11/17/16 11/17/16 06:59 18:59 Intake Total 1550 100 Output Total 0 0 Balance 1550 100 - Medications Medications: Current Medications Acyclovir (Zovirax 5% Oint) 0 gm EXT Q3H [facility] Last Admin: 11/17/16 08:00 Dose: 1 applic Amlodipine Besylate (Norvasc) 10 mg PO DAILY [facility] Last Admin: 11/16/16 09:08 Dose: 10 mg Aspirin (Ecotrin) 81 mg PO DAILY [facility] Last Admin: 11/16/16 09:08 Dose: 81 mg Bacitracin (Bacitracin) 1 ea TOP DAILY [facility] Last Admin: 11/16/16 09:19 Dose: Not Given Calcium Acetate (Phoslo) 2,668 mg PO TIDCC [facility] Last Admin: 11/16/16 13:44 Dose: Not Given Carvedilol (Coreg) 12.5 mg PO BID [facility] Last Admin: 11/16/16 09:08 Dose: 12.5 mg Clotrimazole (Lotrimin 1%) 1 gm TOP BID [facility] Last Admin: 11/16/16 09:19 Dose: Not Given Epoetin Alec (Procrit) 10,000 unit SC MWF [facility] Stop: 11/28/16 23:59 Epoetin Alec (Procrit) 3,000 unit IV [facility] Ferrous Sulfate (Feosol) 325 mg PO DAILY [facility] Last Admin: 11/16/16 09:09 Dose: 325 mg Hydromorphone HCl (Dilaudid) 0.5 mg IVP Q10M PRN PRN Reason: Pain, moderate (4-7) Last Admin: 11/17/16 08:15 Dose: 0.5 mg Hydromorphone HCl (Dilaudid) 0.5 mg IVP Q3H PRN PRN Reason: Pain, Mild (1-3) Last Admin: 11/17/16 04:21 Dose: 0.5 mg Vancomycin HCl 1 gm/ Sodium (Chloride) 250 mls @ 166.7 mls/hr IVPB MWF [facility] Last Admin: 11/16/16 09:33 Dose: 166.7 mls/hr Insulin Glargine (Lantus) 40 unit SC [facility] Last Admin: 11/17/16 00:42 Dose: Not Given Insulin Human Regular (Novolin R) 0 unit SC ACHS [facility] PRN Reason: Protocol Last Admin: 11/16/16 21:48 Dose: Not Given Losartan Potassium (Cozaar) 100 mg PO DAILY@1800 [facility] Last Admin: 11/15/16 18:27 Dose: 100 mg Morphine Sulfate (Morphine) 2 mg IVP Q3 PRN PRN Reason: pain Last Admin: 11/16/16 09:31 Dose: 2 mg Petrolatum (Desitin Original) 0 gm TOP QID [facility] Last Admin: 11/17/16 00:37 Dose: Not Given Rosuvastatin Calcium (Crestor) 2.5 mg PO [facility] Last Admin: 11/17/16 00:37 Dose: Not Given Rosuvastatin Calcium (Crestor) 10 mg PO [facility] Last Admin: 11/17/16 00:37 Dose: Not Given Saccharomyces Boulardii (Florastor) 250 mg PO TID [facility] Last Admin: 11/16/16 13:43 Dose: Not Given - Labs Labs: 11/17/16 07:14 11/17/16 07:14 PT 11.0 SECONDS (9.7-12.2) 11/07/16 17:26 INR 1.0 11/07/16 17:26 APTT 27 SECONDS (21-34) 10/26/16 18:15 - Constitutional Appears: Chronically Ill - Eye Exam Eye Exam: EOMI, Normal appearance - ENT Exam ENT Exam: Mucous Membranes Moist - Neck Exam Neck Exam: Full ROM. absent: Lymphadenopathy - Respiratory Exam Respiratory Exam: Clear to Ausculation Bilateral. absent: Accessory Muscle Use - Cardiovascular Exam Cardiovascular Exam: REGULAR RHYTHM. absent: Rubs - GI/Abdominal Exam GI & Abdominal Exam: Distended. absent: Tenderness - Extremities Exam Extremities Exam: absent: Pedal Edema Additional comments: right foot ischemic Assessment and Plan - Assessment and Plan (Free Text) Assessment: esrd on ccpd s/p lower ext bypass continue wound care and post op care d/c ivf
[2016-11-17] MEDS: (Novolin R) Insulin Human Regular 100 units/ml vial SC SCH ×4 (09:45→22:12)
--- NOTE | 2016-11-17 10:07 | CP.PCM.PN ---
<Yandel Lopez Meeta - Last Filed: 11/17/16 10:05> Subjective - Date & Time of Evaluation Date of Evaluation: 11/17/16 Time of Evaluation: 10:05 - Subjective Subjective: Vasc Sx: Dr Clark Pt S&E. JEFERSON. POD#1 s/p right fem-pop bypass. Pain well controlled. Tolerating diet, but very aggitated by food selection. Requests regular diet. Currently on PD. Dresssing with mild saturation. Knee in immobilizer. Pt repositioned for comfort. Distal pulse with doppler signal. Objective - Vital Signs/Intake and Output Vital Signs (last 24 hours): Temp Pulse Resp BP Pulse Ox 97.6 F 84 16 120/55 L 100 11/17/16 05:00 11/17/16 07:00 11/17/16 07:00 11/17/16 06:30 11/17/16 07:00 Intake and Output: 11/17/16 11/17/16 06:59 18:59 Intake Total 1550 100 Output Total 0 0 Balance 1550 100 - Medications Medications: Current Medications Acyclovir (Zovirax 5% Oint) 0 gm EXT Q3H [facility] Last Admin: 11/17/16 08:00 Dose: 1 applic Amlodipine Besylate (Norvasc) 10 mg PO DAILY [facility] Last Admin: 11/16/16 09:08 Dose: 10 mg Aspirin (Ecotrin) 81 mg PO DAILY [facility] Last Admin: 11/16/16 09:08 Dose: 81 mg Bacitracin (Bacitracin) 1 ea TOP DAILY [facility] Last Admin: 11/16/16 09:19 Dose: Not Given Calcium Acetate (Phoslo) 2,668 mg PO TIDCC [facility] Last Admin: 11/16/16 13:44 Dose: Not Given Carvedilol (Coreg) 12.5 mg PO BID [facility] Last Admin: 11/16/16 09:08 Dose: 12.5 mg Clotrimazole (Lotrimin 1%) 1 gm TOP BID [facility] Last Admin: 11/16/16 09:19 Dose: Not Given Epoetin Alec (Procrit) 10,000 unit SC MWF [facility] Stop: 11/28/16 23:59 Epoetin Alec (Procrit) 3,000 unit IV MWF [facility] Ferrous Sulfate (Feosol) 325 mg PO DAILY [facility] Last Admin: 11/16/16 09:09 Dose: 325 mg Hydromorphone HCl (Dilaudid) 0.5 mg IVP Q10M PRN PRN Reason: Pain, moderate (4-7) Last Admin: 11/17/16 08:15 Dose: 0.5 mg Hydromorphone HCl (Dilaudid) 0.5 mg IVP Q3H PRN PRN Reason: Pain, Mild (1-3) Last Admin: 11/17/16 04:21 Dose: 0.5 mg Vancomycin HCl 1 gm/ Sodium (Chloride) 250 mls @ 166.7 mls/hr IVPB MWF [facility] Last Admin: 11/16/16 09:33 Dose: 166.7 mls/hr Insulin Glargine (Lantus) 40 unit SC [facility] Last Admin: 11/17/16 00:42 Dose: Not Given Insulin Human Regular (Novolin R) 0 unit SC ACHS [facility] PRN Reason: Protocol Last Admin: 11/16/16 21:48 Dose: Not Given Losartan Potassium (Cozaar) 100 mg PO DAILY@1800 [facility] Last Admin: 11/15/16 18:27 Dose: 100 mg Morphine Sulfate (Morphine) 2 mg IVP Q3 PRN PRN Reason: pain Last Admin: 11/16/16 09:31 Dose: 2 mg Petrolatum (Desitin Original) 0 gm TOP QID [facility] Last Admin: 11/17/16 00:37 Dose: Not Given Rosuvastatin Calcium (Crestor) 2.5 mg PO [facility] Last Admin: 11/17/16 00:37 Dose: Not Given Rosuvastatin Calcium (Crestor) 10 mg PO [facility] Last Admin: 11/17/16 00:37 Dose: Not Given Saccharomyces Boulardii (Florastor) 250 mg PO TID [facility] Last Admin: 11/16/16 13:43 Dose: Not Given - Labs Labs: 11/17/16 07:14 11/17/16 07:14 PT 11.0 SECONDS (9.7-12.2) 11/07/16 17:26 INR 1.0 11/07/16 17:26 APTT 27 SECONDS (21-34) 10/26/16 18:15 - Constitutional Appears: Non-toxic, No Acute Distress - Respiratory Exam Respiratory Exam: absent: Accessory Muscle Use, Respiratory Distress - Cardiovascular Exam Cardiovascular Exam: REGULAR RHYTHM. absent: Tachycardia - GI/Abdominal Exam GI & Abdominal Exam: Soft. absent: Tenderness - Extremities Exam Additional comments: right knee in immobilizer dopplerable pulse distally minimal saturation of dressing - Neurological Exam Neurological Exam: Alert, Awake, Oriented x3 - Psychiatric Exam Psychiatric exam: Normal Affect, Normal Mood - Skin Skin Exam: Normal Color, Warm Assessment and Plan - Assessment and Plan (Free Text) Assessment: 51F POD#1 s/p right fem-pop Plan: keep knee in immobilizer do not touch dressing clear for tx to floor diet changed will d/w Dr Eduardo Lopez, PGY2 <Harman Clark Jr. - Last Filed: 11/17/16 12:03> Subjective - Subjective Subjective: excellent dopplers with warm foot demacation prior to tma by podiatry Objective - Vital Signs/Intake and Output Vital Signs (last 24 hours): Temp Pulse Resp BP Pulse Ox 97.6 F 98 H 13 129/70 99 11/17/16 05:00 11/17/16 10:30 11/17/16 10:30 11/17/16 10:30 11/17/16 09:30 Intake and Output: 11/17/16 11/17/16 06:59 18:59 Intake Total 1550 100 Output Total 0 0 Balance 1550 100 - Medications Medications: Current Medications Acyclovir (Zovirax 5% Oint) 0 gm EXT Q3H [facility] Last Admin: 11/17/16 08:00 Dose: 1 applic Amlodipine Besylate (Norvasc) 10 mg PO DAILY [facility] Last Admin: 11/17/16 11:44 Dose: 10 mg Aspirin (Ecotrin) 81 mg PO DAILY [facility] Last Admin: 11/17/16 11:45 Dose: 81 mg Bacitracin (Bacitracin) 1 ea TOP DAILY [facility] Last Admin: 11/17/16 11:47 Dose: 1 ea Calcium Acetate (Phoslo) 2,668 mg PO TIDCC [facility] Last Admin: 11/17/16 09:44 Dose: 2,668 mg Carvedilol (Coreg) 12.5 mg PO BID [facility] Last Admin: 11/17/16 11:46 Dose: 12.5 mg Clotrimazole (Lotrimin 1%) 1 gm TOP BID [facility] Last Admin: 11/16/16 09:19 Dose: Not Given Epoetin Alec (Procrit) 10,000 unit SC [facility] Stop: 11/28/16 23:59 Ferrous Sulfate (Feosol) 325 mg PO DAILY [facility] Last Admin: 11/17/16 11:45 Dose: 325 mg Hydromorphone HCl (Dilaudid) 0.5 mg IVP Q10M PRN PRN Reason: Pain, moderate (4-7) Last Admin: 11/17/16 08:15 Dose: 0.5 mg Hydromorphone HCl (Dilaudid) 0.5 mg IVP Q3H PRN PRN Reason: Pain, Mild (1-3) Last Admin: 11/17/16 11:42 Dose: 0.5 mg Vancomycin HCl 1 gm/ Sodium (Chloride) 250 mls @ 166.7 mls/hr IVPB [facility] Last Admin: 11/16/16 09:33 Dose: 166.7 mls/hr Insulin Glargine (Lantus) 40 unit SC [facility] Last Admin: 11/17/16 00:42 Dose: Not Given Insulin Human Regular (Novolin R) 0 unit SC [facility] PRN Reason: Protocol Last Admin: 11/17/16 09:45 Dose: 3 unit Losartan Potassium (Cozaar) 100 mg PO DAILY@1800 [facility] Last Admin: 11/15/16 18:27 Dose: 100 mg Petrolatum (Desitin Original) 0 gm TOP QID [facility] Last Admin: 11/17/16 00:37 Dose: Not Given Rosuvastatin Calcium (Crestor) 2.5 mg PO [facility] Last Admin: 11/17/16 00:37 Dose: Not Given Rosuvastatin Calcium (Crestor) 10 mg PO [facility] Last Admin: 11/17/16 00:37 Dose: Not Given Saccharomyces Boulardii (Florastor) 250 mg PO TID [facility] Last Admin: 11/17/16 11:44 Dose: 250 mg - Labs Labs: 11/17/16 07:14 11/17/16 07:14 PT 11.0 SECONDS (9.7-12.2) 11/07/16 17:26 INR 1.0 11/07/16 17:26 APTT 27 SECONDS (21-34) 10/26/16 18:15
--- NOTE | 2016-11-17 10:52 | CP.PCM.PN ---
Subjective - Date & Time of Evaluation Date of Evaluation: 11/17/16 Time of Evaluation: 10:51 - Subjective Subjective: If patient is morning okay, she is feeling slightly better, complaining of less pain. Currently having no nausea. Patient had a peritoneal dialysis, also one unit of blood transfusion. Objective - Vital Signs/Intake and Output Vital Signs (last 24 hours): Temp Pulse Resp BP Pulse Ox 97.6 F 84 16 120/55 L 100 11/17/16 05:00 11/17/16 07:00 11/17/16 07:00 11/17/16 06:30 11/17/16 07:00 cliniclly stable Intake and Output: 11/17/16 11/17/16 06:59 18:59 Intake Total 1550 100 Output Total 0 0 Balance 1550 100 - Medications Medications: Current Medications Acyclovir (Zovirax 5% Oint) 0 gm EXT Q3H [facility] Last Admin: 11/17/16 08:00 Dose: 1 applic Amlodipine Besylate (Norvasc) 10 mg PO DAILY [facility] Last Admin: 11/16/16 09:08 Dose: 10 mg Aspirin (Ecotrin) 81 mg PO DAILY [facility] Last Admin: 11/16/16 09:08 Dose: 81 mg Bacitracin (Bacitracin) 1 ea TOP DAILY [facility] Last Admin: 11/16/16 09:19 Dose: Not Given Calcium Acetate (Phoslo) 2,668 mg PO TIDCC [facility] Last Admin: 11/17/16 09:44 Dose: 2,668 mg Carvedilol (Coreg) 12.5 mg PO BID [facility] Last Admin: 11/16/16 09:08 Dose: 12.5 mg Clotrimazole (Lotrimin 1%) 1 gm TOP BID [facility] Last Admin: 11/16/16 09:19 Dose: Not Given Epoetin Alec (Procrit) 10,000 unit SC MWF [facility] Stop: 11/28/16 23:59 Epoetin Alec (Procrit) 3,000 unit IV [facility] Ferrous Sulfate (Feosol) 325 mg PO DAILY [facility] Last Admin: 11/16/16 09:09 Dose: 325 mg Hydromorphone HCl (Dilaudid) 0.5 mg IVP Q10M PRN PRN Reason: Pain, moderate (4-7) Last Admin: 11/17/16 08:15 Dose: 0.5 mg Hydromorphone HCl (Dilaudid) 0.5 mg IVP Q3H PRN PRN Reason: Pain, Mild (1-3) Last Admin: 11/17/16 04:21 Dose: 0.5 mg Vancomycin HCl 1 gm/ Sodium (Chloride) 250 mls @ 166.7 mls/hr IVPB MWF [facility] Last Admin: 11/16/16 09:33 Dose: 166.7 mls/hr Insulin Glargine (Lantus) 40 unit SC [facility] Last Admin: 11/17/16 00:42 Dose: Not Given Insulin Human Regular (Novolin R) 0 unit SC ACHS [facility] PRN Reason: Protocol Last Admin: 11/17/16 09:45 Dose: 3 unit Losartan Potassium (Cozaar) 100 mg PO DAILY@1800 [facility] Last Admin: 11/15/16 18:27 Dose: 100 mg Morphine Sulfate (Morphine) 2 mg IVP Q3 PRN PRN Reason: pain Last Admin: 11/16/16 09:31 Dose: 2 mg Petrolatum (Desitin Original) 0 gm TOP QID [facility] Last Admin: 11/17/16 00:37 Dose: Not Given Rosuvastatin Calcium (Crestor) 2.5 mg PO [facility] Last Admin: 11/17/16 00:37 Dose: Not Given Rosuvastatin Calcium (Crestor) 10 mg PO [facility] Last Admin: 11/17/16 00:37 Dose: Not Given Saccharomyces Boulardii (Florastor) 250 mg PO TID [facility] Last Admin: 11/16/16 13:43 Dose: Not Given - Labs Labs: 11/17/16 07:14 11/17/16 07:14 PT 11.0 SECONDS (9.7-12.2) 11/07/16 17:26 INR 1.0 11/07/16 17:26 APTT 27 SECONDS (21-34) 10/26/16 18:15 Assessment and Plan (1) Foot infection Status: Acute (2) Lower limb ischemia Assessment & Plan: ischemia s/p fem pop bypass cri dm htn will monitor Status: Acute (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
[2016-11-17] MEDS: Saccharomyces Boulardi 250 mg Cap PO SCH ×3 (11:44→17:40)
[2016-11-17] MEDS: Bacitracin 500 Units/gm Oint Foilpak UD TOP SCH (11:47)
[2016-11-17] MEDS: Clotrimazole 1% Cream(30 gm) TOP SCH ×2 (12:59→17:44)
--- NOTE | 2016-11-17 13:25 | CP.PCM.PN ---
Subjective - Date & Time of Evaluation Date of Evaluation: 11/17/16 Time of Evaluation: 13:22 - Subjective Subjective: Pt seen at bedside for f/u right foot gangrene. Pt is S/P fem pop bypass in NAD. Pt does not c/o of any pain at present. Ischemic changes noted at right forefoot. At this point will allow area to demarcate and then decide on surgical course. Will cont to monitor while inhouse. Objective - Vital Signs/Intake and Output Vital Signs (last 24 hours): Temp Pulse Resp BP Pulse Ox 97.6 F 98 H 13 129/70 99 11/17/16 05:00 11/17/16 10:30 11/17/16 10:30 11/17/16 10:30 11/17/16 09:30 Intake and Output: 11/17/16 11/17/16 06:59 18:59 Intake Total 1550 100 Output Total 0 0 Balance 1550 100 - Medications Medications: Current Medications Acyclovir (Zovirax 5% Oint) 0 gm EXT Q3H [facility] Last Admin: 11/17/16 08:00 Dose: 1 applic Amlodipine Besylate (Norvasc) 10 mg PO DAILY [facility] Last Admin: 11/17/16 11:44 Dose: 10 mg Aspirin (Ecotrin) 81 mg PO DAILY [facility] Last Admin: 11/17/16 11:45 Dose: 81 mg Bacitracin (Bacitracin) 1 ea TOP DAILY [facility] Last Admin: 11/17/16 11:47 Dose: 1 ea Calcium Acetate (Phoslo) 2,668 mg PO TIDCC [facility] Last Admin: 11/17/16 12:58 Dose: 2,668 mg Carvedilol (Coreg) 12.5 mg PO BID [facility] Last Admin: 11/17/16 11:46 Dose: 12.5 mg Clotrimazole (Lotrimin 1%) 1 gm TOP BID [facility] Last Admin: 11/17/16 12:59 Dose: Not Given Epoetin Alec (Procrit) 10,000 unit SC MWF [facility] Stop: 11/28/16 23:59 Ferrous Sulfate (Feosol) 325 mg PO DAILY [facility] Last Admin: 11/17/16 11:45 Dose: 325 mg Hydromorphone HCl (Dilaudid) 0.5 mg IVP Q10M PRN PRN Reason: Pain, moderate (4-7) Last Admin: 11/17/16 08:15 Dose: 0.5 mg Hydromorphone HCl (Dilaudid) 0.5 mg IVP Q3H PRN PRN Reason: Pain, Mild (1-3) Last Admin: 11/17/16 11:42 Dose: 0.5 mg Vancomycin HCl 1 gm/ Sodium (Chloride) 250 mls @ 166.7 mls/hr IVPB MWF [facility] Last Admin: 11/16/16 09:33 Dose: 166.7 mls/hr Insulin Glargine (Lantus) 40 unit SC [facility] Last Admin: 11/17/16 00:42 Dose: Not Given Insulin Human Regular (Novolin R) 0 unit SC ACHS [facility] PRN Reason: Protocol Last Admin: 11/17/16 12:59 Dose: 4 unit Losartan Potassium (Cozaar) 100 mg PO DAILY@1800 [facility] Last Admin: 11/15/16 18:27 Dose: 100 mg Petrolatum (Desitin Original) 0 gm TOP QID [facility] Last Admin: 11/17/16 13:00 Dose: Not Given Rosuvastatin Calcium (Crestor) 2.5 mg PO [facility] Last Admin: 11/17/16 00:37 Dose: Not Given Rosuvastatin Calcium (Crestor) 10 mg PO [facility] Last Admin: 11/17/16 00:37 Dose: Not Given Saccharomyces Boulardii (Florastor) 250 mg PO TID [facility] Last Admin: 11/17/16 11:44 Dose: 250 mg - Labs Labs: 11/17/16 07:14 11/17/16 07:14 PT 11.0 SECONDS (9.7-12.2) 11/07/16 17:26 INR 1.0 11/07/16 17:26 APTT 27 SECONDS (21-34) 10/26/16 18:15
[2016-11-18] MEDS: Acyclovir 5% Oint (15 gm) EXT SCH ×7 (00:30→20:49)
[2016-11-18] MEDS: HYDROmorphone 1 mg/ml ISec IVP PRN ×8 (00:52→21:25)
[2016-11-18] MEDS: (Novolin R) Insulin Human Regular 100 units/ml vial SC SCH ×4 (08:37→21:45)
[2016-11-18] MEDS: Saccharomyces Boulardi 250 mg Cap PO SCH ×3 (09:32→17:53)
--- NOTE | 2016-11-18 10:54 | CP.PCM.PN ---
Subjective - Date & Time of Evaluation Date of Evaluation: 11/18/16 Time of Evaluation: 10:52 - Subjective Subjective: Surgery: Dr. Clark Pt seen and examined. Has intermittent discomfort in the leg, which responds to pain meds. No other complaints. Objective - Vital Signs/Intake and Output Vital Signs (last 24 hours): Temp Pulse Resp BP Pulse Ox 98.9 F 99 H 20 143/58 L 95 11/18/16 09:00 11/18/16 09:00 11/18/16 09:00 11/18/16 09:00 11/18/16 09:00 Intake and Output: 11/18/16 11/18/16 06:59 18:59 Intake Total 120 Balance 120 - Medications Medications: Current Medications Acyclovir (Zovirax 5% Oint) 0 gm EXT Q3H [facility] Last Admin: 11/18/16 09:40 Dose: 1 applic Amlodipine Besylate (Norvasc) 10 mg PO DAILY [facility] Last Admin: 11/18/16 09:33 Dose: 10 mg Aspirin (Ecotrin) 81 mg PO DAILY [facility] Last Admin: 11/18/16 09:37 Dose: 81 mg Bacitracin (Bacitracin) 1 ea TOP DAILY [facility] Last Admin: 11/17/16 11:47 Dose: 1 ea Calcium Acetate (Phoslo) 2,668 mg PO TIDCC [facility] Last Admin: 11/18/16 08:38 Dose: 2,668 mg Carvedilol (Coreg) 12.5 mg PO BID [facility] Last Admin: 11/18/16 09:38 Dose: 12.5 mg Clotrimazole (Lotrimin 1%) 1 gm TOP BID [facility] Last Admin: 11/17/16 17:44 Dose: Not Given Epoetin Alec (Procrit) 10,000 unit SC MWF [facility] Stop: 11/28/16 23:59 Ferrous Sulfate (Feosol) 325 mg PO DAILY [facility] Last Admin: 11/18/16 09:32 Dose: 325 mg Heparin Sodium (Porcine) (Heparin) 5,000 units SC Q8 [facility] Last Admin: 11/18/16 06:20 Dose: Not Given Hydromorphone HCl (Dilaudid) 1 mg IVP Q4H PRN PRN Reason: Pain, severe (8-10) Hydromorphone HCl (Dilaudid) 0.5 mg IVP Q3H PRN PRN Reason: Pain, moderate (4-7) Vancomycin HCl 1 gm/ Sodium (Chloride) 250 mls @ 166.7 mls/hr IVPB MWF [facility] Last Admin: 11/16/16 09:33 Dose: 166.7 mls/hr Insulin Glargine (Lantus) 40 unit SC [facility] Last Admin: 11/17/16 21:34 Dose: 40 units Insulin Human Regular (Novolin R) 0 unit SC [facility] PRN Reason: Protocol Last Admin: 11/18/16 08:37 Dose: 2 unit Losartan Potassium (Cozaar) 100 mg PO DAILY@1800 [facility] Last Admin: 11/17/16 17:39 Dose: 100 mg Petrolatum (Desitin Original) 0 gm TOP QID [facility] Last Admin: 11/17/16 21:14 Dose: Not Given Rosuvastatin Calcium (Crestor) 2.5 mg PO [facility] Last Admin: 11/17/16 21:35 Dose: 2.5 mg Rosuvastatin Calcium (Crestor) 10 mg PO [facility] Last Admin: 11/17/16 21:35 Dose: Not Given Saccharomyces Boulardii (Florastor) 250 mg PO TID [facility] Last Admin: 11/18/16 09:32 Dose: 250 mg - Labs Labs: 11/17/16 07:14 11/17/16 07:14 PT 11.0 SECONDS (9.7-12.2) 11/07/16 17:26 INR 1.0 11/07/16 17:26 APTT 27 SECONDS (21-34) 10/26/16 18:15 - Constitutional Appears: Non-toxic, No Acute Distress - Head Exam Head Exam: ATRAUMATIC, NORMOCEPHALIC - Eye Exam Eye Exam: EOMI - ENT Exam ENT Exam: Mucous Membranes Moist - Neck Exam Neck Exam: Full ROM - Respiratory Exam Respiratory Exam: NORMAL BREATHING PATTERN. absent: Accessory Muscle Use, Respiratory Distress - GI/Abdominal Exam GI & Abdominal Exam: Soft. absent: Tenderness - Extremities Exam Additional comments: RLE, dressing in place, C/D/I, foot is warm to touch, tender to palpation, distal pulses dopplerable - Neurological Exam Neurological Exam: Alert, Awake, Oriented x3 - Psychiatric Exam Psychiatric exam: Normal Affect, Normal Mood Assessment and Plan - Assessment and Plan (Free Text) Assessment: 51F w. PVD, s/p R Fem-pop bypass, POD# 2 -Ok to remove imobilizer -start PT tomorrow -c/w pain meds -monitor distal pulses -leave dressing in place -d/w attending Oleg PGY2
[2016-11-18] MEDS: Bacitracin 500 Units/gm Oint Foilpak UD TOP SCH (10:58)
[2016-11-18] MEDS: Clotrimazole 1% Cream(30 gm) TOP SCH ×2 (10:59→17:55)
[2016-11-18] MEDS: Zinc Oxide Topical 30 gm Tube TOP SCH ×4 (10:59→21:44)
--- NOTE | 2016-11-18 12:58 | CP.PCM.PN ---
Subjective - Date & Time of Evaluation Date of Evaluation: 11/18/16 Time of Evaluation: 12:58 - Subjective Subjective: Podiatry note : Dr. Aldrich 51 y/o female patient seen and evaluated at bedside for follow up on right hallux gangrenous. Patient was resting comfortably in bed and in NAD. Patient states that she feels weak and tired today. Patient is 2 days s/o RLE Femoral- Popliteal bypass. Patient states that she has pain of RLE. Right foot hallux was covered with DSD. Patient denies any symptoms of N/V/F/SOB/Chest pain at this time. Objective - Vital Signs/Intake and Output Vital Signs (last 24 hours): Temp Pulse Resp BP Pulse Ox 98.9 F 99 H 20 143/58 L 95 11/18/16 09:00 11/18/16 09:00 11/18/16 09:00 11/18/16 09:32 11/18/16 09:00 Intake and Output: 11/18/16 11/18/16 06:59 18:59 Intake Total 120 Balance 120 - Medications Medications: Current Medications Acyclovir (Zovirax 5% Oint) 0 gm EXT Q3H [facility] Last Admin: 11/18/16 09:40 Dose: 1 applic Amlodipine Besylate (Norvasc) 10 mg PO DAILY [facility] Last Admin: 11/18/16 09:33 Dose: 10 mg Aspirin (Ecotrin) 81 mg PO DAILY [facility] Last Admin: 11/18/16 09:37 Dose: 81 mg Bacitracin (Bacitracin) 1 ea TOP DAILY [facility] Last Admin: 11/18/16 10:58 Dose: 1 ea Calcium Acetate (Phoslo) 2,668 mg PO TIDCC [facility] Last Admin: 11/18/16 08:38 Dose: 2,668 mg Carvedilol (Coreg) 12.5 mg PO BID [facility] Last Admin: 11/18/16 09:38 Dose: 12.5 mg Clotrimazole (Lotrimin 1%) 1 gm TOP BID [facility] Last Admin: 11/18/16 10:59 Dose: Not Given Epoetin Alec (Procrit) 10,000 unit SC MWF [facility] Stop: 11/28/16 23:59 Ferrous Sulfate (Feosol) 325 mg PO DAILY [facility] Last Admin: 06/18/17 09:32 Dose: 325 mg Heparin Sodium (Porcine) (Heparin) 5,000 units SC Q8 [facility] Last Admin: 11/18/16 06:20 Dose: Not Given Hydromorphone HCl (Dilaudid) 1 mg IVP Q4H PRN PRN Reason: Pain, severe (8-10) Last Admin: 11/18/16 10:55 Dose: 1 mg Hydromorphone HCl (Dilaudid) 0.5 mg IVP Q3H PRN PRN Reason: Pain, moderate (4-7) Vancomycin HCl 1 gm/ Sodium (Chloride) 250 mls @ 166.7 mls/hr IVPB MWF [facility] Last Admin: 11/16/16 09:33 Dose: 166.7 mls/hr Insulin Glargine (Lantus) 40 unit SC [facility] Last Admin: 11/17/16 21:34 Dose: 40 units Insulin Human Regular (Novolin R) 0 unit SC ACHS [facility] PRN Reason: Protocol Last Admin: 11/18/16 08:37 Dose: 2 unit Losartan Potassium (Cozaar) 100 mg PO DAILY@1800 [facility] Last Admin: 11/17/16 17:39 Dose: 100 mg Ondansetron HCl (Zofran Inj) 4 mg IVP Q4 PRN PRN Reason: Nausea/Vomiting Petrolatum (Desitin Original) 0 gm TOP QID [facility] Last Admin: 11/18/16 10:59 Dose: Not Given Rosuvastatin Calcium (Crestor) 2.5 mg PO [facility] Last Admin: 11/17/16 21:35 Dose: 2.5 mg Rosuvastatin Calcium (Crestor) 10 mg PO [facility] Last Admin: 11/17/16 21:35 Dose: Not Given Saccharomyces Boulardii (Florastor) 250 mg PO TID [facility] Last Admin: 11/18/16 09:32 Dose: 250 mg - Labs Labs: 11/17/16 07:14 11/17/16 07:14 PT 11.0 SECONDS (9.7-12.2) 11/07/16 17:26 INR 1.0 11/07/16 17:26 APTT 27 SECONDS (21-34) 10/26/16 18:15 - Constitutional Appears: Non-toxic, No Acute Distress - Extremities Exam Additional comments: right foot is covered with DSD - Neurological Exam Neurological Exam: Alert, Awake - Psychiatric Exam Psychiatric exam: Normal Affect Assessment and Plan - Assessment and Plan (Free Text) Assessment: 51 y/o female patient with right foot hallux gangrene secondary to severe PVD Plan: Patient seen and evaluated at bedside All the questions and concerns were addressed Discussed with attending Dr. Aldrich Patient refused to have dressing change Spoke to Dr. Clark and will wait for Demarcation of right foot for further podiatry procedure Labs and vitals were reviewed continue IV abx treatment Podiatry will continue to follow while patient remains inhouse.
[2016-11-18 15:14] LABS: HEMATOCRIT 22.6 % (34.0-47.0); MEAN CELL VOLUME 93.7 fL (81.0-99.0); MEAN CORPUSCULAR HEMOGLOBIN 30.5 pg (27.0-31.0); MEAN CORPUSCULAR HGB CONC 32.5 g/dL (33.0-37.0); MEAN PLATELET VOLUME 8.7 fL (7.2-11.7); RED CELL DISTRIBUTION WIDTH 19.3 % (11.5-14.5); WHITE BLOOD COUNT 12.4 K/uL (4.8-10.8)
[2016-11-18 15:26] LABS: POTASSIUM 4.2 mmol/L (3.6-5.2)
--- NOTE | 2016-11-18 18:40 | CP.PCM.PN ---
Subjective - Date & Time of Evaluation Date of Evaluation: 11/18/16 Time of Evaluation: 18:40 - Subjective Subjective: Patient is having gangrene of the right great toe. Complaining of minimal pain. No fever today. Status post femoropopliteal bypass. But increasing pain noted. Minimal discharge noted. Vital signs reviewed. Chest good air entry bilaterally regular heart sound. 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 Currently on antibiotic. Continue the current treatment. Will follow the patient Objective - Vital Signs/Intake and Output Vital Signs (last 24 hours): Temp Pulse Resp BP Pulse Ox 98.6 F 94 H 20 158/79 H 97 11/18/16 16:04 11/18/16 16:04 11/18/16 16:04 11/18/16 17:53 11/18/16 16:04 Intake and Output: 11/18/16 11/18/16 06:59 18:59 Intake Total 120 Balance 120 - Medications Medications: Current Medications Acyclovir (Zovirax 5% Oint) 0 gm EXT Q3H [facility] Last Admin: 11/18/16 17:56 Dose: Not Given Amlodipine Besylate (Norvasc) 10 mg PO DAILY [facility] Last Admin: 11/18/16 09:33 Dose: 10 mg Aspirin (Ecotrin) 81 mg PO DAILY [facility] Last Admin: 11/18/16 09:37 Dose: 81 mg Bacitracin (Bacitracin) 1 ea TOP DAILY [facility] Last Admin: 11/18/16 10:58 Dose: 1 ea Calcium Acetate (Phoslo) 2,668 mg PO TIDCC [facility] Last Admin: 11/18/16 17:52 Dose: 2,668 mg Carvedilol (Coreg) 12.5 mg PO BID [facility] Last Admin: 11/18/16 17:53 Dose: 12.5 mg Clotrimazole (Lotrimin 1%) 1 gm TOP BID [facility] Last Admin: 11/18/16 17:55 Dose: Not Given Epoetin Alec (Procrit) 10,000 unit SC MWF [facility] Stop: 11/28/16 23:59 Ferrous Sulfate (Feosol) 325 mg PO DAILY [facility] Last Admin: 11/18/16 09:32 Dose: 325 mg Heparin Sodium (Porcine) (Heparin) 5,000 units SC Q8 [facility] Last Admin: 06/18/17 13:47 Dose: 5,000 units Hydromorphone HCl (Dilaudid) 1 mg IVP Q4H PRN PRN Reason: Pain, severe (8-10) Last Admin: 11/18/16 10:55 Dose: 1 mg Hydromorphone HCl (Dilaudid) 0.5 mg IVP Q3H PRN PRN Reason: Pain, moderate (4-7) Last Admin: 11/18/16 15:07 Dose: 0.5 mg Vancomycin HCl 1 gm/ Sodium (Chloride) 250 mls @ 166.7 mls/hr IVPB MWF [facility] Last Admin: 11/16/16 09:33 Dose: 166.7 mls/hr Insulin Glargine (Lantus) 40 unit SC [facility] Last Admin: 11/17/16 21:34 Dose: 40 units Insulin Human Regular (Novolin R) 0 unit SC ACHS [facility] PRN Reason: Protocol Last Admin: 11/18/16 16:54 Dose: Not Given Losartan Potassium (Cozaar) 100 mg PO DAILY@1800 [facility] Last Admin: 11/18/16 17:54 Dose: 100 mg Ondansetron HCl (Zofran Inj) 4 mg IVP Q4 PRN PRN Reason: Nausea/Vomiting Petrolatum (Desitin Original) 0 gm TOP QID [facility] Last Admin: 11/18/16 17:55 Dose: Not Given Rosuvastatin Calcium (Crestor) 2.5 mg PO [facility] Last Admin: 11/17/16 21:35 Dose: 2.5 mg Rosuvastatin Calcium (Crestor) 10 mg PO [facility] Last Admin: 11/17/16 21:35 Dose: Not Given Saccharomyces Boulardii (Florastor) 250 mg PO TID [facility] Last Admin: 11/18/16 17:53 Dose: 250 mg - Labs Labs: 11/18/16 15:05 11/18/16 15:05 PT 11.0 SECONDS (9.7-12.2) 11/07/16 17:26 INR 1.0 11/07/16 17:26 APTT 27 SECONDS (21-34) 10/26/16 18:15 Assessment and Plan (1) Foot infection Status: Acute (2) Lower limb ischemia Status: Acute (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
[2016-11-18] MEDS: (Lantus) Insulin Glargine, Recombinant SC SCH (21:24)
[2016-11-18] MEDS: Rosuvastatin Calcium 2.5 mg Tab PO SCH (21:24)
--- NOTE | 2016-11-18 22:03 | RAD ---
PROCEDURE: Intraoperative Fluoroscopy. HISTORY: PVD/ ESRD END STAGE FINDINGS: Fluoroscopic assistance was provided for right femoral angiogram.
[2016-11-18 22:29] LABS: HEMATOCRIT 22.6 % (34.0-47.0); MEAN CELL VOLUME 94.2 fL (81.0-99.0); MEAN CORPUSCULAR HEMOGLOBIN 30.1 pg (27.0-31.0); MEAN PLATELET VOLUME 8.2 fL (7.2-11.7); WHITE BLOOD COUNT 11.2 K/uL (4.8-10.8)
[2016-11-19] MEDS: Acyclovir 5% Oint (15 gm) EXT SCH ×9 (00:15→22:00)
[2016-11-19] MEDS: HYDROmorphone 1 mg/ml ISec IVP PRN ×3 (03:58→21:00)
[2016-11-19 08:18] LABS: HEMATOCRIT 22.5 % (34.0-47.0); MEAN CELL VOLUME 94.8 fL (81.0-99.0); MEAN CORPUSCULAR HEMOGLOBIN 30.6 pg (27.0-31.0); MEAN CORPUSCULAR HGB CONC 32.3 g/dL (33.0-37.0); MEAN PLATELET VOLUME 8.5 fL (7.2-11.7); RED CELL DISTRIBUTION WIDTH 19.5 % (11.5-14.5); WHITE BLOOD COUNT 14.2 K/uL (4.8-10.8)
[2016-11-19] MEDS: (Novolin R) Insulin Human Regular 100 units/ml vial SC SCH ×4 (08:35→22:25)
[2016-11-19] MEDS: Saccharomyces Boulardi 250 mg Cap PO SCH ×3 (09:55→17:27)
[2016-11-19] MEDS: EPOETIN ALFA 10,000 UNIT/ML ML SC SCH (09:59)
[2016-11-19] MEDS: Zinc Oxide Topical 30 gm Tube TOP SCH ×4 (10:06→22:24)
[2016-11-19] MEDS: Clotrimazole 1% Cream(30 gm) TOP SCH ×2 (10:06→17:41)
--- NOTE | 2016-11-19 10:44 | CP.PCM.PN ---
Subjective - Date & Time of Evaluation Date of Evaluation: 11/19/16 Time of Evaluation: 10:42 - Subjective Subjective: ongoing pd, clear fluid transferred to floor, stable s/pblood transfusion no n/v/df/c still in severe leg pain Objective - Vital Signs/Intake and Output Vital Signs (last 24 hours): Temp Pulse Resp BP Pulse Ox 98.4 F 97 H 18 130/62 96 11/19/16 07:00 11/19/16 07:00 11/19/16 07:00 11/19/16 09:56 11/19/16 07:00 Intake and Output: 11/19/16 11/19/16 06:59 18:59 Intake Total 100 Balance 100 - Medications Medications: Current Medications Acyclovir (Zovirax 5% Oint) 0 gm EXT Q3H [facility] Last Admin: 11/19/16 10:06 Dose: 1 applic Amlodipine Besylate (Norvasc) 10 mg PO DAILY [facility] Last Admin: 11/19/16 09:56 Dose: 10 mg Aspirin (Ecotrin) 81 mg PO DAILY [facility] Last Admin: 11/19/16 09:55 Dose: 81 mg Bacitracin (Bacitracin) 1 ea TOP DAILY [facility] Last Admin: 11/18/16 10:58 Dose: 1 ea Calcium Acetate (Phoslo) 2,668 mg PO TIDCC [facility] Last Admin: 11/19/16 08:35 Dose: 2,668 mg Carvedilol (Coreg) 12.5 mg PO BID [facility] Last Admin: 11/19/16 09:56 Dose: 12.5 mg Clotrimazole (Lotrimin 1%) 1 gm TOP BID [facility] Last Admin: 11/19/16 10:06 Dose: Not Given Epoetin Alec (Procrit) 10,000 unit SC MWF [facility] Stop: 11/28/16 23:59 Last Admin: 11/19/16 09:59 Dose: 10,000 unit Ferrous Sulfate (Feosol) 325 mg PO DAILY [facility] Last Admin: 11/19/16 09:55 Dose: 325 mg Heparin Sodium (Porcine) (Heparin) 5,000 units SC Q8 [facility] Last Admin: 11/19/16 06:50 Dose: Not Given Hydromorphone HCl (Dilaudid) 1 mg IVP Q4H PRN PRN Reason: Pain, severe (8-10) Last Admin: 11/19/16 03:58 Dose: 1 mg Hydromorphone HCl (Dilaudid) 0.5 mg IVP Q3H PRN PRN Reason: Pain, moderate (4-7) Last Admin: 11/18/16 19:40 Dose: 0.5 mg Vancomycin HCl 1 gm/ Sodium (Chloride) 250 mls @ 166.7 mls/hr IVPB MWF [facility] Last Admin: 11/19/16 10:00 Dose: 166.7 mls/hr Insulin Glargine (Lantus) 40 unit SC [facility] Last Admin: 11/18/16 21:24 Dose: 40 units Insulin Human Regular (Novolin R) 0 unit SC [facility] PRN Reason: Protocol Last Admin: 11/19/16 08:35 Dose: 1 unit Losartan Potassium (Cozaar) 100 mg PO DAILY@1800 [facility] Last Admin: 11/18/16 17:54 Dose: 100 mg Ondansetron HCl (Zofran Inj) 4 mg IVP Q4 PRN PRN Reason: Nausea/Vomiting Petrolatum (Desitin Original) 0 gm TOP QID [facility] Last Admin: 11/19/16 10:06 Dose: Not Given Rosuvastatin Calcium (Crestor) 2.5 mg PO [facility] Last Admin: 11/18/16 21:24 Dose: 2.5 mg Rosuvastatin Calcium (Crestor) 10 mg PO [facility] Last Admin: 11/18/16 21:44 Dose: Not Given Saccharomyces Boulardii (Florastor) 250 mg PO TID [facility] Last Admin: 11/19/16 09:55 Dose: 250 mg - Labs Labs: 11/19/16 07:27 11/18/16 15:05 PT 11.0 SECONDS (9.7-12.2) 11/07/16 17:26 INR 1.0 11/07/16 17:26 APTT 27 SECONDS (21-34) 10/26/16 18:15 - Constitutional Appears: Non-toxic, No Acute Distress, Chronically Ill - Head Exam Head Exam: NORMAL INSPECTION - Eye Exam Eye Exam: Normal appearance - ENT Exam ENT Exam: Mucous Membranes Moist, Normal Exam - Neck Exam Neck Exam: Normal Inspection - Respiratory Exam Respiratory Exam: Decreased Breath Sounds, NORMAL BREATHING PATTERN - Cardiovascular Exam Cardiovascular Exam: REGULAR RHYTHM, RRR - GI/Abdominal Exam GI & Abdominal Exam: Distended (pd fluid), Soft - Extremities Exam Extremities Exam: Normal Inspection (rt foot in dressing) Assessment and Plan (1) Chronic anemia Status: Acute (2) Foot infection Status: Acute (3) Lower limb ischemia Status: Acute (4) Type 2 diabetes mellitus with diabetic nephropathy Status: Acute (5) Diabetes mellitus Status: Acute (6) ESRD on peritoneal dialysis Status: Acute - Assessment and Plan (Free Text) Assessment: s/p rt LE bypass esrd on pd DM htn Plan: maintain pd check vanco trough levels bp acceptable surgical management / post op care on anabela. watch hgb
--- NOTE | 2016-11-19 11:09 | CP.PCM.PN ---
Subjective - Date & Time of Evaluation Date of Evaluation: 11/19/16 Time of Evaluation: 09:00 - Subjective Subjective: events noted vanco level noted will repeat Objective - Vital Signs/Intake and Output Vital Signs (last 24 hours): Temp Pulse Resp BP Pulse Ox 98.4 F 97 H 18 130/62 96 11/19/16 07:00 11/19/16 07:00 11/19/16 07:00 11/19/16 09:56 11/19/16 07:00 Intake and Output: 11/19/16 11/19/16 06:59 18:59 Intake Total 100 Balance 100 - Medications Medications: Current Medications Acyclovir (Zovirax 5% Oint) 0 gm EXT Q3H [facility] Last Admin: 11/19/16 10:06 Dose: 1 applic Amlodipine Besylate (Norvasc) 10 mg PO DAILY [facility] Last Admin: 11/19/16 09:56 Dose: 10 mg Aspirin (Ecotrin) 81 mg PO DAILY [facility] Last Admin: 11/19/16 09:55 Dose: 81 mg Bacitracin (Bacitracin) 1 ea TOP DAILY [facility] Last Admin: 11/18/16 10:58 Dose: 1 ea Calcium Acetate (Phoslo) 2,668 mg PO TIDCC [facility] Last Admin: 11/19/16 08:35 Dose: 2,668 mg Carvedilol (Coreg) 12.5 mg PO BID [facility] Last Admin: 11/19/16 09:56 Dose: 12.5 mg Clotrimazole (Lotrimin 1%) 1 gm TOP BID [facility] Last Admin: 11/19/16 10:06 Dose: Not Given Epoetin Alec (Procrit) 10,000 unit SC MWF [facility] Stop: 11/28/16 23:59 Last Admin: 11/19/16 09:59 Dose: 10,000 unit Ferrous Sulfate (Feosol) 325 mg PO DAILY [facility] Last Admin: 11/19/16 09:55 Dose: 325 mg Heparin Sodium (Porcine) (Heparin) 5,000 units SC Q8 [facility] Last Admin: 11/19/16 06:50 Dose: Not Given Hydromorphone HCl (Dilaudid) 1 mg IVP Q4H PRN PRN Reason: Pain, severe (8-10) Last Admin: 11/19/16 03:58 Dose: 1 mg Hydromorphone HCl (Dilaudid) 0.5 mg IVP Q3H PRN PRN Reason: Pain, moderate (4-7) Last Admin: 11/18/16 19:40 Dose: 0.5 mg Vancomycin HCl 1 gm/ Sodium (Chloride) 250 mls @ 166.7 mls/hr IVPB MWF [facility] Last Admin: 11/19/16 10:00 Dose: 166.7 mls/hr Insulin Glargine (Lantus) 40 unit SC [facility] Last Admin: 11/18/16 21:24 Dose: 40 units Insulin Human Regular (Novolin R) 0 unit SC ACHS [facility] PRN Reason: Protocol Last Admin: 11/19/16 08:35 Dose: 1 unit Losartan Potassium (Cozaar) 100 mg PO DAILY@1800 [facility] Last Admin: 11/18/16 17:54 Dose: 100 mg Ondansetron HCl (Zofran Inj) 4 mg IVP Q4 PRN PRN Reason: Nausea/Vomiting Petrolatum (Desitin Original) 0 gm TOP QID [facility] Last Admin: 11/19/16 10:06 Dose: Not Given Rosuvastatin Calcium (Crestor) 2.5 mg PO [facility] Last Admin: 11/18/16 21:24 Dose: 2.5 mg Rosuvastatin Calcium (Crestor) 10 mg PO [facility] Last Admin: 11/18/16 21:44 Dose: Not Given Saccharomyces Boulardii (Florastor) 250 mg PO TID [facility] Last Admin: 11/19/16 09:55 Dose: 250 mg - Labs Labs: 11/19/16 07:27 11/18/16 15:05 PT 11.0 SECONDS (9.7-12.2) 11/07/16 17:26 INR 1.0 11/07/16 17:26 APTT 27 SECONDS (21-34) 10/26/16 18:15 Assessment and Plan (1) Foot infection Status: Acute (2) Lower limb ischemia Status: Acute (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
[2016-11-19] MEDS: Bacitracin 500 Units/gm Oint Foilpak UD TOP SCH (12:31)
--- NOTE | 2016-11-19 16:31 | CP.PCM.PN ---
Subjective - Date & Time of Evaluation Date of Evaluation: 11/19/16 Time of Evaluation: 16:28 - Subjective Subjective: Patient seen regarding right foot gangrene and 3 days s/p right fem-pop bypass. She is seen bedside complaining of pain to the RL, specifically bypass site and right forefoot. Denies any other complications overnight. Denies F/C/N/V. Objective - Vital Signs/Intake and Output Vital Signs (last 24 hours): Temp Pulse Resp BP Pulse Ox 98.4 F 95 H 18 130/62 96 11/19/16 07:00 11/19/16 08:00 11/19/16 07:00 11/19/16 09:56 11/19/16 07:00 Intake and Output: 11/19/16 11/19/16 06:59 18:59 Intake Total 100 Balance 100 - Medications Medications: Current Medications Acyclovir (Zovirax 5% Oint) 0 gm EXT Q3H [facility] Last Admin: 11/19/16 12:31 Dose: 1 applic Amlodipine Besylate (Norvasc) 10 mg PO DAILY [facility] Last Admin: 11/19/16 09:56 Dose: 10 mg Aspirin (Ecotrin) 81 mg PO DAILY [facility] Last Admin: 11/19/16 09:55 Dose: 81 mg Bacitracin (Bacitracin) 1 ea TOP DAILY [facility] Last Admin: 11/19/16 12:31 Dose: Not Given Calcium Acetate (Phoslo) 2,668 mg PO TIDCC [facility] Last Admin: 11/19/16 12:31 Dose: 2,668 mg Carvedilol (Coreg) 12.5 mg PO BID [facility] Last Admin: 11/19/16 09:56 Dose: 12.5 mg Clotrimazole (Lotrimin 1%) 1 gm TOP BID [facility] Last Admin: 11/19/16 10:06 Dose: Not Given Epoetin Alec (Procrit) 10,000 unit SC MWF [facility] Stop: 11/28/16 23:59 Last Admin: 11/19/16 09:59 Dose: 10,000 unit Ferrous Sulfate (Feosol) 325 mg PO DAILY [facility] Last Admin: 11/19/16 09:55 Dose: 325 mg Heparin Sodium (Porcine) (Heparin) 5,000 units SC Q8 [facility] Last Admin: 11/19/16 14:15 Dose: 5,000 units Hydromorphone HCl (Dilaudid) 1 mg IVP Q4H PRN PRN Reason: Pain, severe (8-10) Last Admin: 11/19/16 14:14 Dose: 1 mg Hydromorphone HCl (Dilaudid) 0.5 mg IVP Q3H PRN PRN Reason: Pain, moderate (4-7) Last Admin: 11/18/16 19:40 Dose: 0.5 mg Vancomycin HCl 1 gm/ Sodium (Chloride) 250 mls @ 166.7 mls/hr IVPB MWF [facility] Last Admin: 11/19/16 10:00 Dose: 166.7 mls/hr Insulin Glargine (Lantus) 40 unit SC [facility] Last Admin: 11/18/16 21:24 Dose: 40 units Insulin Human Regular (Novolin R) 0 unit SC ACHS [facility] PRN Reason: Protocol Last Admin: 11/19/16 12:32 Dose: Not Given Losartan Potassium (Cozaar) 100 mg PO DAILY@1800 [facility] Last Admin: 11/18/16 17:54 Dose: 100 mg Ondansetron HCl (Zofran Inj) 4 mg IVP Q4 PRN PRN Reason: Nausea/Vomiting Last Admin: 11/19/16 11:18 Dose: 4 mg Petrolatum (Desitin Original) 0 gm TOP QID [facility] Last Admin: 11/19/16 10:06 Dose: Not Given Rosuvastatin Calcium (Crestor) 2.5 mg PO [facility] Last Admin: 11/18/16 21:24 Dose: 2.5 mg Rosuvastatin Calcium (Crestor) 10 mg PO [facility] Last Admin: 11/18/16 21:44 Dose: Not Given Saccharomyces Boulardii (Florastor) 250 mg PO TID [facility] Last Admin: 11/19/16 14:15 Dose: 250 mg - Labs Labs: 11/19/16 07:27 11/18/16 15:05 PT 11.0 SECONDS (9.7-12.2) 11/07/16 17:26 INR 1.0 11/07/16 17:26 APTT 27 SECONDS (21-34) 10/26/16 18:15 - Constitutional Appears: No Acute Distress - Extremities Exam Additional comments: RLE exam: Vascular: Dp and PT pulses non-palpable, CFT >5sec, temperature cool to touch from midfoot to digits. Derm: Gangrene of hallux from distal tip to MTPJ, surrounding skin with erythema, mild edema, no calor, serous bulla extending proximal to dorsal midfoot, no purulence, no malodor. MSK: Pain on palpation of hallux, dorsal forefoot. ROM decreased. Neuro: Gross sensation intact. - Neurological Exam Neurological Exam: Alert, Awake, Oriented x3 Assessment and Plan - Assessment and Plan (Free Text) Assessment: 51 y/o female patient with right foot hallux gangrene secondary to PVD Plan: Patient seen and evaluated at bedside All the questions and concerns were addressed Discussed with attending Dr. Aldrich Patient refused to have dressing change Will continue to wait for progression s/p bypass before definitive podiatric procedure. continue IV abx per ID. Podiatry will continue to follow while patient remains in hospital.
--- NOTE | 2016-11-19 16:45 | CP.PCM.PN ---
Subjective - Date & Time of Evaluation Date of Evaluation: 11/19/16 Time of Evaluation: 16:43 - Subjective Subjective: Vasc Surgery: Dr Valenzuela Pt S&E. NAEO. Resting comfortably. POD#3 s/p right fem-pop bypass. Pt states she has pain but has increased movement in lower extremity Knee immobilizer removed, pt engaged in exercises at bedside. Objective - Vital Signs/Intake and Output Vital Signs (last 24 hours): Temp Pulse Resp BP Pulse Ox 98.2 F 95 H 18 152/76 H 96 11/19/16 16:00 11/19/16 16:00 11/19/16 16:00 11/19/16 16:00 11/19/16 16:00 Intake and Output: 11/19/16 11/19/16 06:59 18:59 Intake Total 100 Balance 100 - Medications Medications: Current Medications Acyclovir (Zovirax 5% Oint) 0 gm EXT Q3H [facility] Last Admin: 11/19/16 12:31 Dose: 1 applic Amlodipine Besylate (Norvasc) 10 mg PO DAILY [facility] Last Admin: 11/19/16 09:56 Dose: 10 mg Aspirin (Ecotrin) 81 mg PO DAILY [facility] Last Admin: 11/19/16 09:55 Dose: 81 mg Bacitracin (Bacitracin) 1 ea TOP DAILY [facility] Last Admin: 11/19/16 12:31 Dose: Not Given Calcium Acetate (Phoslo) 2,668 mg PO TIDCC [facility] Last Admin: 11/19/16 12:31 Dose: 2,668 mg Carvedilol (Coreg) 12.5 mg PO BID [facility] Last Admin: 11/19/16 09:56 Dose: 12.5 mg Clotrimazole (Lotrimin 1%) 1 gm TOP BID [facility] Last Admin: 11/19/16 10:06 Dose: Not Given Epoetin Alec (Procrit) 10,000 unit SC MWF [facility] Stop: 11/28/16 23:59 Last Admin: 11/19/16 09:59 Dose: 10,000 unit Ferrous Sulfate (Feosol) 325 mg PO DAILY [facility] Last Admin: 11/19/16 09:55 Dose: 325 mg Heparin Sodium (Porcine) (Heparin) 5,000 units SC Q8 [facility] Last Admin: 11/19/16 14:15 Dose: 5,000 units Hydromorphone HCl (Dilaudid) 1 mg IVP Q4H PRN PRN Reason: Pain, severe (8-10) Last Admin: 11/19/16 14:14 Dose: 1 mg Hydromorphone HCl (Dilaudid) 0.5 mg IVP Q3H PRN PRN Reason: Pain, moderate (4-7) Last Admin: 11/18/16 19:40 Dose: 0.5 mg Vancomycin HCl 1 gm/ Sodium (Chloride) 250 mls @ 166.7 mls/hr IVPB MWF [facility] Last Admin: 11/19/16 10:00 Dose: 166.7 mls/hr Insulin Glargine (Lantus) 40 unit SC [facility] Last Admin: 11/18/16 21:24 Dose: 40 units Insulin Human Regular (Novolin R) 0 unit SC [facility] PRN Reason: Protocol Last Admin: 11/19/16 12:32 Dose: Not Given Losartan Potassium (Cozaar) 100 mg PO DAILY@1800 [facility] Last Admin: 11/18/16 17:54 Dose: 100 mg Ondansetron HCl (Zofran Inj) 4 mg IVP Q4 PRN PRN Reason: Nausea/Vomiting Last Admin: 11/19/16 11:18 Dose: 4 mg Petrolatum (Desitin Original) 0 gm TOP QID [facility] Last Admin: 11/19/16 10:06 Dose: Not Given Rosuvastatin Calcium (Crestor) 2.5 mg PO [facility] Last Admin: 11/18/16 21:24 Dose: 2.5 mg Rosuvastatin Calcium (Crestor) 10 mg PO [facility] Last Admin: 11/18/16 21:44 Dose: Not Given Saccharomyces Boulardii (Florastor) 250 mg PO TID [facility] Last Admin: 11/19/16 14:15 Dose: 250 mg - Labs Labs: 11/19/16 07:27 11/18/16 15:05 PT 11.0 SECONDS (9.7-12.2) 11/07/16 17:26 INR 1.0 11/07/16 17:26 APTT 27 SECONDS (21-34) 10/26/16 18:15 - Constitutional Appears: Non-toxic, No Acute Distress - ENT Exam ENT Exam: Mucous Membranes Moist - Respiratory Exam Respiratory Exam: absent: Accessory Muscle Use, Respiratory Distress - Cardiovascular Exam Cardiovascular Exam: REGULAR RHYTHM. absent: Tachycardia - Extremities Exam Additional comments: right leg removed from immobilizer palpable DP dressing mildly saturated, will change tomorrow - Neurological Exam Neurological Exam: Alert, Awake, Oriented x3 - Psychiatric Exam Psychiatric exam: Normal Affect, Normal Mood - Skin Skin Exam: Normal Color, Warm Assessment and Plan - Assessment and Plan (Free Text) Assessment: 51F POD#3 s/p right fem pop Plan: cont PT will change dressing tomorrow will d/w Dr Eduardo Lopez, PGY2
--- NOTE | 2016-11-19 20:43 | CP.PCM.PN ---
Subjective - Date & Time of Evaluation Date of Evaluation: 11/19/16 Time of Evaluation: 20:42 - Subjective Subjective: rt leg pulse dopplarable pain noted sugar stable continue to monitor Objective - Vital Signs/Intake and Output Vital Signs (last 24 hours): Temp Pulse Resp BP Pulse Ox 98.2 F 99 H 18 147/77 96 11/19/16 16:00 11/19/16 19:25 11/19/16 16:00 11/19/16 19:25 11/19/16 16:00 - Medications Medications: Current Medications Acyclovir (Zovirax 5% Oint) 0 gm EXT Q3H [facility] Last Admin: 11/19/16 17:42 Dose: 1 applic Amlodipine Besylate (Norvasc) 10 mg PO DAILY [facility] Last Admin: 11/19/16 09:56 Dose: 10 mg Aspirin (Ecotrin) 81 mg PO DAILY [facility] Last Admin: 11/19/16 09:55 Dose: 81 mg Bacitracin (Bacitracin) 1 ea TOP DAILY [facility] Last Admin: 11/19/16 12:31 Dose: Not Given Calcium Acetate (Phoslo) 2,668 mg PO TIDCC [facility] Last Admin: 11/19/16 17:32 Dose: 2,668 mg Carvedilol (Coreg) 12.5 mg PO BID [facility] Last Admin: 11/19/16 17:28 Dose: 12.5 mg Clotrimazole (Lotrimin 1%) 1 gm TOP BID [facility] Last Admin: 11/19/16 17:41 Dose: Not Given Epoetin Alec (Procrit) 10,000 unit SC MWF [facility] Stop: 11/28/16 23:59 Last Admin: 11/19/16 09:59 Dose: 10,000 unit Ferrous Sulfate (Feosol) 325 mg PO DAILY [facility] Last Admin: 11/19/16 09:55 Dose: 325 mg Heparin Sodium (Porcine) (Heparin) 5,000 units SC Q8 [facility] Last Admin: 11/19/16 14:15 Dose: 5,000 units Hydromorphone HCl (Dilaudid) 1 mg IVP Q4H PRN PRN Reason: Pain, severe (8-10) Last Admin: 11/19/16 14:14 Dose: 1 mg Hydromorphone HCl (Dilaudid) 0.5 mg IVP Q3H PRN PRN Reason: Pain, moderate (4-7) Last Admin: 11/18/16 19:40 Dose: 0.5 mg Vancomycin HCl 1 gm/ Sodium (Chloride) 250 mls @ 166.7 mls/hr IVPB MWF [facility] Last Admin: 11/19/16 10:00 Dose: 166.7 mls/hr Insulin Glargine (Lantus) 40 unit SC HS [facility] Last Admin: 11/18/16 21:24 Dose: 40 units Insulin Human Regular (Novolin R) 0 unit SC ACHS [facility] PRN Reason: Protocol Last Admin: 11/19/16 17:08 Dose: Not Given Losartan Potassium (Cozaar) 100 mg PO DAILY@1800 [facility] Last Admin: 11/19/16 17:27 Dose: 100 mg Ondansetron HCl (Zofran Inj) 4 mg IVP Q4 PRN PRN Reason: Nausea/Vomiting Last Admin: 11/19/16 11:18 Dose: 4 mg Petrolatum (Desitin Original) 0 gm TOP QID [facility] Last Admin: 11/19/16 17:40 Dose: 1 applic Rosuvastatin Calcium (Crestor) 2.[address] [facility] Last Admin: 11/18/16 21:24 Dose: 2.5 mg Rosuvastatin Calcium (Crestor) [address] [facility] Last Admin: 11/18/16 21:44 Dose: Not Given Saccharomyces Boulardii (Florastor) 250 mg PO TID [facility] Last Admin: 11/19/16 17:27 Dose: 250 mg - Labs Labs: 11/19/16 07:27 11/18/16 15:05 PT 11.0 SECONDS (9.7-12.2) 11/07/16 17:26 INR 1.0 11/07/16 17:26 APTT 27 SECONDS (21-34) 10/26/16 18:15 Assessment and Plan (1) Foot infection Status: Acute (2) Lower limb ischemia Status: Acute (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
[2016-11-19] MEDS: (Lantus) Insulin Glargine, Recombinant SC SCH (22:24)
[2016-11-19] MEDS: Rosuvastatin Calcium 2.5 mg Tab PO SCH (22:24)
[2016-11-20] MEDS: Acyclovir 5% Oint (15 gm) EXT SCH ×8 (00:40→21:00)
[2016-11-20] MEDS: HYDROmorphone 1 mg/ml ISec IVP PRN ×2 (00:43→08:18)
[2016-11-20] MEDS: (Novolin R) Insulin Human Regular 100 units/ml vial SC SCH ×4 (08:17→22:23)
--- NOTE | 2016-11-20 10:41 | CP.PCM.PN ---
Subjective - Date & Time of Evaluation Date of Evaluation: 11/20/16 Time of Evaluation: 10:41 - Subjective Subjective: Vasc Sx: Dr Clark PT S&E. JEFERSON. Dressing changed at bedside. Incision c/d/i. Pt agrees to start PT and begin PO pain medicine Objective - Vital Signs/Intake and Output Vital Signs (last 24 hours): Temp Pulse Resp BP Pulse Ox 98.1 F 76 20 127/70 97 11/20/16 08:12 11/20/16 08:12 11/20/16 08:12 11/20/16 08:12 11/20/16 08:12 Intake and Output: 11/20/16 11/20/16 06:59 18:59 Intake Total 120 Balance 120 - Medications Medications: Current Medications Acyclovir (Zovirax 5% Oint) 0 gm EXT Q3H [facility] Last Admin: 11/20/16 06:47 Dose: Not Given Amlodipine Besylate (Norvasc) 10 mg PO DAILY [facility] Last Admin: 11/19/16 09:56 Dose: 10 mg Aspirin (Ecotrin) 81 mg PO DAILY [facility] Last Admin: 11/19/16 09:55 Dose: 81 mg Bacitracin (Bacitracin) 1 ea TOP DAILY [facility] Last Admin: 11/19/16 12:31 Dose: Not Given Calcium Acetate (Phoslo) 2,668 mg PO TIDCC [facility] Last Admin: 11/20/16 08:17 Dose: 2,668 mg Carvedilol (Coreg) 12.5 mg PO BID [facility] Last Admin: 11/19/16 17:28 Dose: 12.5 mg Clotrimazole (Lotrimin 1%) 1 gm TOP BID [facility] Last Admin: 11/19/16 17:41 Dose: Not Given Epoetin Alec (Procrit) 10,000 unit SC MWF [facility] Stop: 11/28/16 23:59 Last Admin: 11/19/16 09:59 Dose: 10,000 unit Ferrous Sulfate (Feosol) 325 mg PO DAILY [facility] Last Admin: 11/19/16 09:55 Dose: 325 mg Heparin Sodium (Porcine) (Heparin) 5,000 units SC Q8 [facility] Last Admin: 11/20/16 06:47 Dose: Not Given Hydromorphone HCl (Dilaudid) 1 mg IVP Q4H PRN PRN Reason: Pain, severe (8-10) Last Admin: 11/20/16 08:18 Dose: 1 mg Hydromorphone HCl (Dilaudid) 0.5 mg IVP Q3H PRN PRN Reason: Pain, moderate (4-7) Last Admin: 11/20/16 00:43 Dose: 0.5 mg Vancomycin HCl 1 gm/ Sodium (Chloride) 250 mls @ 166.7 mls/hr IVPB MWF [facility] Last Admin: 11/19/16 10:00 Dose: 166.7 mls/hr Insulin Glargine (Lantus) 40 unit SC [facility] Last Admin: 11/19/16 22:24 Dose: Not Given Insulin Human Regular (Novolin R) 0 unit SC [facility] PRN Reason: Protocol Last Admin: 11/20/16 08:17 Dose: 1 unit Losartan Potassium (Cozaar) 100 mg PO DAILY@1800 [facility] Last Admin: 11/19/16 17:27 Dose: 100 mg Ondansetron HCl (Zofran Inj) 4 mg IVP Q4 PRN PRN Reason: Nausea/Vomiting Last Admin: 11/19/16 11:18 Dose: 4 mg Petrolatum (Desitin Original) 0 gm TOP QID [facility] Last Admin: 11/19/16 22:24 Dose: 1 applic Rosuvastatin Calcium (Crestor) 2.5 mg PO [facility] Last Admin: 11/19/16 22:24 Dose: Not Given Rosuvastatin Calcium (Crestor) 10 mg PO [facility] Last Admin: 11/19/16 22:24 Dose: Not Given Saccharomyces Boulardii (Florastor) 250 mg PO TID [facility] Last Admin: 11/19/16 17:27 Dose: 250 mg - Labs Labs: 11/19/16 07:27 11/18/16 15:05 PT 11.0 SECONDS (9.7-12.2) 11/07/16 17:26 INR 1.0 11/07/16 17:26 APTT 27 SECONDS (21-34) 10/26/16 18:15 - Constitutional Appears: Non-toxic, No Acute Distress - Respiratory Exam Respiratory Exam: absent: Accessory Muscle Use, Respiratory Distress - Cardiovascular Exam Cardiovascular Exam: REGULAR RHYTHM - GI/Abdominal Exam GI & Abdominal Exam: Soft. absent: Distended, Tenderness - Extremities Exam Additional comments: incision c/d/o: bandage changed at bedside - Psychiatric Exam Psychiatric exam: Normal Affect, Normal Mood Assessment and Plan - Assessment and Plan (Free Text) Assessment: 51F POD#5 s/p right fem-pop bypass Plan: transition to PO pain meds physical therapy D/C planning will d/w Dr Eduardo Lopez, PGY2
[2016-11-20] MEDS ORDERED: HYDROmorphone 0.5 mg/0.5 ml ISec IVP PRN ×2 (10:46→15:44)
[2016-11-20] MEDS: Saccharomyces Boulardi 250 mg Cap PO SCH ×3 (11:08→18:13)
[2016-11-20] MEDS: Clotrimazole 1% Cream(30 gm) TOP SCH ×2 (11:12→18:16)
[2016-11-20] MEDS: Zinc Oxide Topical 30 gm Tube TOP SCH ×3 (11:12→22:23)
[2016-11-20] MEDS: Bacitracin 500 Units/gm Oint Foilpak UD TOP SCH (11:12)
--- NOTE | 2016-11-20 12:02 | CP.PCM.PN ---
Subjective - Date & Time of Evaluation Date of Evaluation: 11/20/16 Time of Evaluation: 11:59 - Subjective Subjective: No events notes reviewed. clear pd fluid, unable to obtain input, using home cycler Objective - Vital Signs/Intake and Output Vital Signs (last 24 hours): Temp Pulse Resp BP Pulse Ox 98.1 F 76 20 127/70 97 11/20/16 08:12 11/20/16 08:12 11/20/16 08:12 11/20/16 11:08 11/20/16 08:12 Intake and Output: 11/20/16 11/20/16 06:59 18:59 Intake Total 120 Balance 120 - Medications Medications: Current Medications Acyclovir (Zovirax 5% Oint) 0 gm EXT Q3H [facility] Last Admin: 11/20/16 09:35 Dose: 1 applic Amlodipine Besylate (Norvasc) 10 mg PO DAILY [facility] Last Admin: 11/20/16 11:09 Dose: 10 mg Aspirin (Ecotrin) 81 mg PO DAILY [facility] Last Admin: 11/20/16 11:10 Dose: 81 mg Bacitracin (Bacitracin) 1 ea TOP DAILY [facility] Last Admin: 11/20/16 11:12 Dose: Not Given Calcium Acetate (Phoslo) 2,668 mg PO TIDCC [facility] Last Admin: 11/20/16 08:17 Dose: 2,668 mg Carvedilol (Coreg) 12.5 mg PO BID [facility] Last Admin: 11/20/16 11:08 Dose: 12.5 mg Clotrimazole (Lotrimin 1%) 1 gm TOP BID [facility] Last Admin: 11/20/16 11:12 Dose: Not Given Epoetin Alec (Procrit) 10,000 unit SC MWF [facility] Stop: 11/28/16 23:59 Last Admin: 11/19/16 09:59 Dose: 10,000 unit Ferrous Sulfate (Feosol) 325 mg PO DAILY [facility] Last Admin: 11/20/16 11:10 Dose: 325 mg Heparin Sodium (Porcine) (Heparin) 5,000 units SC Q8 [facility] Last Admin: 11/20/16 06:47 Dose: Not Given Hydromorphone HCl (Dilaudid) 0.5 mg IVP Q3H PRN PRN Reason: Pain, moderate (4-7) Vancomycin HCl 1 gm/ Sodium (Chloride) 250 mls @ 166.7 mls/hr IVPB MWF [facility] Last Admin: 11/19/16 10:00 Dose: 166.7 mls/hr Insulin Glargine (Lantus) 40 unit SC [facility] Last Admin: 11/19/16 22:24 Dose: Not Given Insulin Human Regular (Novolin R) 0 unit SC ACHS [facility] PRN Reason: Protocol Last Admin: 11/20/16 11:35 Dose: Not Given Losartan Potassium (Cozaar) 100 mg PO DAILY@1800 [facility] Last Admin: 11/19/16 17:27 Dose: 100 mg Ondansetron HCl (Zofran Inj) 4 mg IVP Q4 PRN PRN Reason: Nausea/Vomiting Last Admin: 11/19/16 11:18 Dose: 4 mg Oxycodone/Acetaminophen (Percocet 5/325 Mg Tab) 1 tab PO Q4H PRN PRN Reason: Pain, Mild (1-3) Stop: 11/23/16 10:46 Petrolatum (Desitin Original) 0 gm TOP QID [facility] Last Admin: 11/20/16 11:12 Dose: Not Given Rosuvastatin Calcium (Crestor) 2.5 mg PO [facility] Last Admin: 11/19/16 22:24 Dose: Not Given Rosuvastatin Calcium (Crestor) 10 mg PO [facility] Last Admin: 11/19/16 22:24 Dose: Not Given Saccharomyces Boulardii (Florastor) 250 mg PO TID [facility] Last Admin: 11/20/16 11:08 Dose: 250 mg - Labs Labs: 11/19/16 07:27 11/18/16 15:05 PT 11.0 SECONDS (9.7-12.2) 11/07/16 17:26 INR 1.0 11/07/16 17:26 APTT 27 SECONDS (21-34) 10/26/16 18:15 - Constitutional Appears: Non-toxic, No Acute Distress, Chronically Ill - Head Exam Head Exam: NORMAL INSPECTION - Eye Exam Eye Exam: Normal appearance - ENT Exam ENT Exam: Mucous Membranes Moist, Normal Exam - Neck Exam Neck Exam: Normal Inspection - Respiratory Exam Respiratory Exam: Clear to Ausculation Bilateral, NORMAL BREATHING PATTERN - Cardiovascular Exam Cardiovascular Exam: REGULAR RHYTHM, RRR - GI/Abdominal Exam GI & Abdominal Exam: Distended (pd fluid), Soft - Extremities Exam Additional comments: pt not allowing exam due to pain - Neurological Exam Neurological Exam: Alert, Awake, Oriented x3 - Psychiatric Exam Psychiatric exam: Normal Affect, Normal Mood Assessment and Plan (1) Chronic anemia Status: Acute (2) Foot infection Status: Acute (3) Lower limb ischemia Status: Acute (4) Type 2 diabetes mellitus with diabetic nephropathy Status: Acute (5) Diabetes mellitus Status: Acute (6) ESRD on peritoneal dialysis Status: Acute - Assessment and Plan (Free Text) Assessment: s/p rt LE bypass esrd on pd DM htn Plan: maintain pd check vanco trough levels bp acceptable surgical management / post op care on anabela. watch hgb. labs ordered for zahra am
--- NOTE | 2016-11-20 12:34 | CP.PCM.PN ---
Subjective - Date & Time of Evaluation Date of Evaluation: 11/20/16 Time of Evaluation: 12:29 - Subjective Subjective: Pt seen with resident at bedside for f/u right forefoot gangrene. Pt is S/P fem -pop bypass. Explained to pt that her options which include possible TMA of right foot. There is a strong possibility that if it does not heal - she will require further surgery and/or possible BK amp. At present, pt does not want anything done - she is refusing any surgery on the foot. She wants to walk on it and go to rehab and see how she responds. Pt understands the risks that she may become septic and that her only chance in the future will be a BK amp. Her prognosis is guarded. Podiatry will sign off for now as there is going to be no surgical intervention planned on this admission as per patient. Reconsult as needed. Thanks Objective - Vital Signs/Intake and Output Vital Signs (last 24 hours): Temp Pulse Resp BP Pulse Ox 98.1 F 76 20 127/70 97 11/20/16 08:12 11/20/16 08:12 11/20/16 08:12 11/20/16 11:08 11/20/16 08:12 Intake and Output: 11/20/16 11/20/16 06:59 18:59 Intake Total 120 Balance 120 - Medications Medications: Current Medications Acyclovir (Zovirax 5% Oint) 0 gm EXT Q3H [facility] Last Admin: 11/20/16 09:35 Dose: 1 applic Amlodipine Besylate (Norvasc) 10 mg PO DAILY [facility] Last Admin: 11/20/16 11:09 Dose: 10 mg Aspirin (Ecotrin) 81 mg PO DAILY [facility] Last Admin: 11/20/16 11:10 Dose: 81 mg Bacitracin (Bacitracin) 1 ea TOP DAILY [facility] Last Admin: 11/20/16 11:12 Dose: Not Given Calcium Acetate (Phoslo) 2,668 mg PO TIDCC [facility] Last Admin: 11/20/16 08:17 Dose: 2,668 mg Carvedilol (Coreg) 12.5 mg PO BID [facility] Last Admin: 11/20/16 11:08 Dose: 12.5 mg Clotrimazole (Lotrimin 1%) 1 gm TOP BID [facility] Last Admin: 11/20/16 11:12 Dose: Not Given Epoetin Alec (Procrit) 10,000 unit SC [facility] Stop: 11/28/16 23:59 Last Admin: 11/19/16 09:59 Dose: 10,000 unit Ferrous Sulfate (Feosol) 325 mg PO DAILY [facility] Last Admin: 11/20/16 11:10 Dose: 325 mg Heparin Sodium (Porcine) (Heparin) 5,000 units SC Q8 [facility] Last Admin: 11/20/16 06:47 Dose: Not Given Hydromorphone HCl (Dilaudid) 0.5 mg IVP Q3H PRN PRN Reason: Pain, moderate (4-7) Vancomycin HCl 1 gm/ Sodium (Chloride) 250 mls @ 166.7 mls/hr IVPB [facility] Last Admin: 11/19/16 10:00 Dose: 166.7 mls/hr Insulin Glargine (Lantus) 40 unit SC [facility] Last Admin: 11/19/16 22:24 Dose: Not Given Insulin Human Regular (Novolin R) 0 unit SC [facility] PRN Reason: Protocol Last Admin: 11/20/16 11:35 Dose: Not Given Losartan Potassium (Cozaar) 100 mg PO DAILY@1800 [facility] Last Admin: 11/19/16 17:27 Dose: 100 mg Ondansetron HCl (Zofran Inj) 4 mg IVP Q4 PRN PRN Reason: Nausea/Vomiting Last Admin: 11/19/16 11:18 Dose: 4 mg Oxycodone/Acetaminophen (Percocet 5/325 Mg Tab) 1 tab PO Q4H PRN PRN Reason: Pain, Mild (1-3) Stop: 11/23/16 10:46 Petrolatum (Desitin Original) 0 gm TOP QID [facility] Last Admin: 11/20/16 11:12 Dose: Not Given Rosuvastatin Calcium (Crestor) 2.5 mg PO [facility] Last Admin: 11/19/16 22:24 Dose: Not Given Rosuvastatin Calcium (Crestor) 10 mg PO [facility] Last Admin: 11/19/16 22:24 Dose: Not Given Saccharomyces Boulardii (Florastor) 250 mg PO TID [facility] Last Admin: 11/20/16 11:08 Dose: 250 mg - Labs Labs: 11/19/16 07:27 11/18/16 15:05 PT 11.0 SECONDS (9.7-12.2) 11/07/16 17:26 INR 1.0 11/07/16 17:26 APTT 27 SECONDS (21-34) 10/26/16 18:15
[2016-11-20] MEDS: Oxycodone/Acetaminophen 5/325 mg Tab PO PRN ×2 (14:29→23:15)
--- NOTE | 2016-11-20 18:48 | CP.PCM.PN ---
Subjective - Date & Time of Evaluation Date of Evaluation: 11/20/16 Time of Evaluation: 18:47 - Subjective Subjective: Patient continues to get the peritoneal dialysis. But complaining of pain in the right lower extremity. Taking pain medications. Also facial rash improving. Vital signs stable. Chest good entry bilaterally regular heart sound. Edema in the right leg noted. Minimal discharge in the right leg was noted 51-year-old female, diabetes, hypertension, end-stage renal disease paternal dialysis, admitted with a gangrene of the right foot. Status post a femoropopliteal bypass. And antibiotic for the suspected sepsis Objective - Vital Signs/Intake and Output Vital Signs (last 24 hours): Temp Pulse Resp BP Pulse Ox 99.1 F 100 H 20 148/63 99 11/20/16 15:38 11/20/16 15:38 11/20/16 15:38 11/20/16 18:11 11/20/16 15:38 Intake and Output: 11/20/16 11/20/16 06:59 18:59 Intake Total 120 Balance 120 - Medications Medications: Current Medications Acyclovir (Zovirax 5% Oint) 0 gm EXT Q3H [facility] Last Admin: 11/20/16 18:15 Dose: 1 applic Amlodipine Besylate (Norvasc) 10 mg PO DAILY [facility] Last Admin: 11/20/16 11:09 Dose: 10 mg Aspirin (Ecotrin) 81 mg PO DAILY [facility] Last Admin: 11/20/16 11:10 Dose: 81 mg Bacitracin (Bacitracin) 1 ea TOP DAILY [facility] Last Admin: 11/20/16 11:12 Dose: Not Given Calcium Acetate (Phoslo) 2,668 mg PO TIDCC [facility] Last Admin: 11/20/16 18:00 Dose: 2,668 mg Carvedilol (Coreg) 12.5 mg PO BID [facility] Last Admin: 11/20/16 18:11 Dose: 12.5 mg Clotrimazole (Lotrimin 1%) 1 gm TOP BID [facility] Last Admin: 11/20/16 18:16 Dose: 1 gm Epoetin Alec (Procrit) 10,000 unit SC MWF [facility] Stop: 11/28/16 23:59 Last Admin: 11/19/16 09:59 Dose: 10,000 unit Ferrous Sulfate (Feosol) 325 mg PO DAILY [facility] Last Admin: 11/20/16 11:10 Dose: 325 mg Heparin Sodium (Porcine) (Heparin) 5,000 units SC Q8 [facility] Last Admin: 11/20/16 06:47 Dose: Not Given Hydromorphone HCl (Dilaudid) 0.5 mg IVP Q3H PRN PRN Reason: Pain, severe (8-10) Vancomycin HCl 1 gm/ Sodium (Chloride) 250 mls @ 166.7 mls/hr IVPB MWF [facility] Last Admin: 11/19/16 10:00 Dose: 166.7 mls/hr Insulin Glargine (Lantus) 40 unit SC [facility] Last Admin: 11/19/16 22:24 Dose: Not Given Insulin Human Regular (Novolin R) 0 unit SC ACHS [facility] PRN Reason: Protocol Last Admin: 11/20/16 17:12 Dose: Not Given Losartan Potassium (Cozaar) 100 mg PO DAILY@1800 [facility] Last Admin: 11/20/16 18:11 Dose: 100 mg Ondansetron HCl (Zofran Inj) 4 mg IVP Q4 PRN PRN Reason: Nausea/Vomiting Last Admin: 11/19/16 11:18 Dose: 4 mg Oxycodone/Acetaminophen (Percocet 5/325 Mg Tab) 1 tab PO Q4H PRN PRN Reason: Pain, Mild (1-3) Stop: 11/23/16 10:46 Last Admin: 11/20/16 14:29 Dose: 1 tab Petrolatum (Desitin Original) 0 gm TOP QID [facility] Last Admin: 11/20/16 18:16 Dose: Not Given Rosuvastatin Calcium (Crestor) 2.5 mg PO [facility] Last Admin: 11/19/16 22:24 Dose: Not Given Rosuvastatin Calcium (Crestor) 10 mg PO [facility] Last Admin: 11/19/16 22:24 Dose: Not Given Saccharomyces Boulardii (Florastor) 250 mg PO TID [facility] Last Admin: 11/20/16 18:13 Dose: 250 mg - Labs Labs: 11/19/16 07:27 11/18/16 15:05 PT 11.0 SECONDS (9.7-12.2) 11/07/16 17:26 INR 1.0 11/07/16 17:26 APTT 27 SECONDS (21-34) 10/26/16 18:15 Assessment and Plan (1) Foot infection Status: Acute (2) Lower limb ischemia Status: Acute (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
[2016-11-20] MEDS: (Lantus) Insulin Glargine, Recombinant SC SCH (23:00)
[2016-11-20] MEDS: Rosuvastatin Calcium 2.5 mg Tab PO SCH (23:00)
[2016-11-21] MEDS: Acyclovir 5% Oint (15 gm) EXT SCH ×9 (00:21→22:10)
[2016-11-21 07:36] LABS: BASO # 0.1 K/uL (0.0-0.2); BASO % 0.7 % (0.0-2.0); EOS # 0.2 K/uL (0.0-0.7); EOS % 1.2 % (0.0-4.0); HEMATOCRIT 23.5 % (34.0-47.0); LYMPH # 1.2 K/uL (1.0-4.3); LYMPH % 8.2 % (20.0-40.0); MEAN CELL VOLUME 93.9 fL (81.0-99.0); MEAN CORPUSCULAR HEMOGLOBIN 30.3 pg (27.0-31.0); MEAN CORPUSCULAR HGB CONC 32.3 g/dL (33.0-37.0); MONO # 0.9 K/uL (0.0-0.8); MONO % 6.2 % (0.0-10.0); PLATELET COUNT 248 K/uL (130-400); RED CELL DISTRIBUTION WIDTH 17.7 % (11.5-14.5); WHITE BLOOD COUNT 15.3 K/uL (4.8-10.8)
[2016-11-21 07:47] LABS: POTASSIUM 4.6 mmol/L (3.6-5.2)
[2016-11-21 07:49] LABS: BILIRUBIN,TOTAL 0.5 mg/dL (0.2-1.3); TOTAL PROTEIN 6.2 g/dL (6.3-8.3)
[2016-11-21 07:50] LABS: CALCIUM 8.7 mg/dl (8.6-10.4)
[2016-11-21 08:11] LABS: ALB/GLOB RATIO 0.9 (1.0-2.1)
[2016-11-21] MEDS: (Novolin R) Insulin Human Regular 100 units/ml vial SC SCH ×5 (08:30→23:09)
[2016-11-21] MEDS: Oxycodone/Acetaminophen 5/325 mg Tab PO PRN ×2 (08:50→18:39)
[2016-11-21 09:09] LABS: TOTAL CELLS COUNTED 100
[2016-11-21 09:11] LABS: NEUTROPHIL 88 % (50-75)
[2016-11-21 09:13] LABS: GIANT PLATELETS PRESENT; LARGE PLATELETS PRESENT
--- NOTE | 2016-11-21 10:44 | CP.PCM.PCO ---
Physician Communication Note - Physician Communication Note Physician Communication Note: Pt clear for D/C to rehab - f/u in clinic
[2016-11-21] MEDS: Bacitracin 500 Units/gm Oint Foilpak UD TOP SCH (11:16)
[2016-11-21] MEDS: Zinc Oxide Topical 30 gm Tube TOP SCH ×4 (11:16→23:08)
[2016-11-21] MEDS: Clotrimazole 1% Cream(30 gm) TOP SCH ×2 (12:06→18:28)
[2016-11-21] MEDS: Saccharomyces Boulardi 250 mg Cap PO SCH ×3 (12:42→18:27)
[2016-11-21] MEDS: EPOETIN ALFA 10,000 UNIT/ML ML SC SCH (13:05)
--- NOTE | 2016-11-21 15:03 | CP.PCM.PN ---
Subjective - Date & Time of Evaluation Date of Evaluation: 11/21/16 Time of Evaluation: 13:00 - Subjective Subjective: still with pain at right foot and drainage at bandage PD fluid clear UF 1200 cc chronic anemia noted bp excellent stomach queasy no sob no chest pain possible d/c to [facility] Objective - Vital Signs/Intake and Output Vital Signs (last 24 hours): Temp Pulse Resp BP Pulse Ox 98.6 F 101 H 20 113/71 95 11/21/16 09:08 11/21/16 09:08 11/21/16 09:08 11/21/16 12:42 11/21/16 09:08 - Medications Medications: Current Medications Acyclovir (Zovirax 5% Oint) 0 gm EXT Q3H [facility] Last Admin: 11/21/16 14:48 Dose: Not Given Amlodipine Besylate (Norvasc) 10 mg PO DAILY [facility] Last Admin: 11/21/16 12:40 Dose: Not Given Aspirin (Ecotrin) 81 mg PO DAILY [facility] Last Admin: 11/21/16 12:42 Dose: 81 mg Bacitracin (Bacitracin) 1 ea TOP DAILY [facility] Last Admin: 11/21/16 11:16 Dose: Not Given Calcium Acetate (Phoslo) 2,668 mg PO TIDCC [facility] Last Admin: 11/21/16 12:42 Dose: 2,668 mg Carvedilol (Coreg) 12.5 mg PO BID [facility] Last Admin: 11/21/16 12:42 Dose: 12.5 mg Clotrimazole (Lotrimin 1%) 1 gm TOP BID [facility] Last Admin: 11/21/16 12:06 Dose: Not Given Epoetin Alec (Procrit) 10,000 unit SC MWF [facility] Stop: 11/28/16 23:59 Last Admin: 11/21/16 13:05 Dose: 10,000 unit Ferrous Sulfate (Feosol) 325 mg PO DAILY [facility] Last Admin: 11/21/16 12:41 Dose: Not Given Heparin Sodium (Porcine) (Heparin) 5,000 units SC Q8 [facility] Last Admin: 11/21/16 14:46 Dose: Not Given Hydromorphone HCl (Dilaudid) 0.5 mg IVP Q3H PRN PRN Reason: Pain, severe (8-10) Insulin Glargine (Lantus) 40 unit SC [facility] Last Admin: 11/20/16 23:00 Dose: Not Given Insulin Human Regular (Novolin R) 0 unit SC ACHS [facility] PRN Reason: Protocol Last Admin: 11/21/16 14:53 Dose: Not Given Losartan Potassium (Cozaar) 100 mg PO DAILY@1800 [facility] Last Admin: 11/20/16 18:00 Dose: Not Given Ondansetron HCl (Zofran Inj) 4 mg IVP Q4 PRN PRN Reason: Nausea/Vomiting Last Admin: 11/19/16 11:18 Dose: 4 mg Oxycodone/Acetaminophen (Percocet 5/325 Mg Tab) 1 tab PO Q4H PRN PRN Reason: Pain, Mild (1-3) Stop: 11/23/16 10:46 Last Admin: 11/21/16 08:50 Dose: 1 tab Petrolatum (Desitin Original) 0 gm TOP QID [facility] Last Admin: 11/21/16 14:45 Dose: Not Given Rosuvastatin Calcium (Crestor) 2.5 mg PO [facility] Last Admin: 11/20/16 23:00 Dose: 2.5 mg Rosuvastatin Calcium (Crestor) 10 mg PO [facility] Last Admin: 11/20/16 23:00 Dose: 10 mg Saccharomyces Boulardii (Florastor) 250 mg PO TID [facility] Last Admin: 11/21/16 12:42 Dose: 250 mg - Labs Labs: 11/21/16 07:29 11/21/16 07:29 PT 11.0 SECONDS (9.7-12.2) 11/07/16 17:26 INR 1.0 11/07/16 17:26 APTT 27 SECONDS (21-34) 10/26/16 18:15 - Constitutional Appears: Chronically Ill - Head Exam Head Exam: ATRAUMATIC - Eye Exam Eye Exam: EOMI - ENT Exam ENT Exam: Mucous Membranes Moist - Neck Exam Neck Exam: Full ROM. absent: Lymphadenopathy - Respiratory Exam Respiratory Exam: Clear to Ausculation Bilateral, NORMAL BREATHING PATTERN - Cardiovascular Exam Cardiovascular Exam: REGULAR RHYTHM. absent: Rubs - GI/Abdominal Exam GI & Abdominal Exam: Distended. absent: Tenderness - Extremities Exam Additional comments: right foot bandaged, malodorous, bandage wet Assessment and Plan - Assessment and Plan (Free Text) Assessment: ccpd, stable rx continue dressing of incision and PT probable [facility]
--- NOTE | 2016-11-21 15:14 | CP.PCM.PN ---
Subjective - Date & Time of Evaluation Date of Evaluation: 11/21/16 Time of Evaluation: 10:00 - Subjective Subjective: events noted cultures so far negative vanco held due to levels foot same prognosis poor Objective - Vital Signs/Intake and Output Vital Signs (last 24 hours): Temp Pulse Resp BP Pulse Ox 98.6 F 101 H 20 113/71 95 11/21/16 09:08 11/21/16 09:08 11/21/16 09:08 11/21/16 12:42 11/21/16 09:08 - Medications Medications: Current Medications Acyclovir (Zovirax 5% Oint) 0 gm EXT Q3H [facility] Last Admin: 11/21/16 14:48 Dose: Not Given Amlodipine Besylate (Norvasc) 10 mg PO DAILY [facility] Last Admin: 11/21/16 12:40 Dose: Not Given Aspirin (Ecotrin) 81 mg PO DAILY [facility] Last Admin: 11/21/16 12:42 Dose: 81 mg Bacitracin (Bacitracin) 1 ea TOP DAILY [facility] Last Admin: 11/21/16 11:16 Dose: Not Given Calcium Acetate (Phoslo) 2,668 mg PO TIDCC [facility] Last Admin: 11/21/16 12:42 Dose: 2,668 mg Carvedilol (Coreg) 12.5 mg PO BID [facility] Last Admin: 11/21/16 12:42 Dose: 12.5 mg Clotrimazole (Lotrimin 1%) 1 gm TOP BID [facility] Last Admin: 11/21/16 12:06 Dose: Not Given Epoetin Alec (Procrit) 10,000 unit SC M[facility] Stop: 11/28/16 23:59 Last Admin: 11/21/16 13:05 Dose: 10,000 unit Ferrous Sulfate (Feosol) 325 mg PO DAILY [facility] Last Admin: 11/21/16 12:41 Dose: Not Given Heparin Sodium (Porcine) (Heparin) 5,000 units SC Q8 [facility] Last Admin: 11/21/16 14:46 Dose: Not Given Hydromorphone HCl (Dilaudid) 0.5 mg IVP Q3H PRN PRN Reason: Pain, severe (8-10) Insulin Glargine (Lantus) 40 unit SC [facility] Last Admin: 11/20/16 23:00 Dose: Not Given Insulin Human Regular (Novolin R) 0 unit SC ACHS [facility] PRN Reason: Protocol Last Admin: 11/21/16 14:53 Dose: Not Given Losartan Potassium (Cozaar) 100 mg PO DAILY@1800 [facility] Last Admin: 11/20/16 18:00 Dose: Not Given Ondansetron HCl (Zofran Inj) 4 mg IVP Q4 PRN PRN Reason: Nausea/Vomiting Last Admin: 11/19/16 11:18 Dose: 4 mg Oxycodone/Acetaminophen (Percocet 5/325 Mg Tab) 1 tab PO Q4H PRN PRN Reason: Pain, Mild (1-3) Stop: 11/23/16 10:46 Last Admin: 11/21/16 08:50 Dose: 1 tab Petrolatum (Desitin Original) 0 gm TOP QID [facility] Last Admin: 11/21/16 14:45 Dose: Not Given Rosuvastatin Calcium (Crestor) 2.5 mg PO [facility] Last Admin: 11/20/16 23:00 Dose: 2.5 mg Rosuvastatin Calcium (Crestor) 10 mg PO [facility] Last Admin: 11/20/16 23:00 Dose: 10 mg Saccharomyces Boulardii (Florastor) 250 mg PO TID [facility] Last Admin: 11/21/16 12:42 Dose: 250 mg - Labs Labs: 11/21/16 07:29 11/21/16 07:29 PT 11.0 SECONDS (9.7-12.2) 11/07/16 17:26 INR 1.0 11/07/16 17:26 APTT 27 SECONDS (21-34) 10/26/16 18:15 - Constitutional Appears: Non-toxic - Head Exam Head Exam: NORMAL INSPECTION - Eye Exam Eye Exam: PERRL. absent: Scleral icterus - ENT Exam ENT Exam: Mucous Membranes Dry - Neck Exam Neck Exam: absent: Lymphadenopathy - Respiratory Exam Respiratory Exam: Decreased Breath Sounds, Clear to Ausculation Bilateral - Cardiovascular Exam Cardiovascular Exam: REGULAR RHYTHM, +S1, +S2 - GI/Abdominal Exam GI & Abdominal Exam: Distended, Soft Assessment and Plan (1) Foot infection Status: Acute (2) Lower limb ischemia Status: Acute (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
--- NOTE | 2016-11-21 16:24 | VASCLAB ---
PROCEDURE: Upper Extremity Venous Duplex Exam HISTORY: possible DVT PRIORS: None. TECHNIQUE: Bilateral upper extremity, internal jugular, subclavian, axillary, brachial, ulnar, radial, basilic and upper cephalic veins were evaluated. Flow was assessed with color Doppler, compressibility, assessment of phasic flow and augmentation response. Report prepared by Alfonso Blood, TARA, RVT FINDINGS: RIGHT: 1. Internal Jugular: 1.1. Compressibility - Fully compressible: Thrombus - None : Flow - Phasic: Augmentation -Normal: Reflux - None. 2. Subclavian: 2.1. Compressibility - Fully compressible: Thrombus - None : Flow - Phasic: Augmentation -Normal: Reflux - None. 3. Axillary: 3.1. Compressibility - Fully compressible: Thrombus - None : Flow - Phasic: Augmentation -Normal: Reflux - None. 4. Brachial: 4.1. Compressibility - Fully compressible: Thrombus - None: Flow - Phasic: Augmentation -Normal: Reflux - None. 5. Ulnar: 5.1. Compressibility - Fully compressible: Thrombus - None: Flow - Phasic: Augmentation -Normal: Reflux - None. 6. Radial: 6.1. Compressibility - Fully compressible: Thrombus - None: Flow - Phasic: Augmentation - Normal: Reflux - None. 7. Cephalic: 7.1. Compressibility - Partial: Thrombus - Acute: Flow - Absent : Augmentation -None: Reflux - None. 8. Basilic: 8.1. Compressibility - Fully compressible: Thrombus - None: Flow - Phasic: Augmentation -Normal: Reflux - None. LEFT: 1. Internal Jugular: 1.1. Compressibility - Fully compressible: Thrombus - None : Flow - Phasic: Augmentation -Normal: Reflux - None. 2. Subclavian: 2.1. Compressibility - Fully compressible: Thrombus - None : Flow - Phasic: Augmentation -Normal: Reflux - None. 3. Axillary: 3.1. Compressibility - Fully compressible: Thrombus - None : Flow - Phasic: Augmentation -Normal: Reflux - None. 4. Brachial: 4.1. Compressibility - Fully compressible: Thrombus - None: Flow - Phasic: Augmentation -Normal: Reflux - None. 5. Ulnar: 5.1. Compressibility - Fully compressible: Thrombus - None: Flow - Phasic: Augmentation -Normal: Reflux - None. 6. Radial: 6.1. Compressibility - Fully compressible: Thrombus - None: Flow - Phasic: Augmentation - Normal: Reflux - None. 7. Cephalic: 7.1. Compressibility - Fully compressible: Thrombus - None: Flow - Phasic: Augmentation -Normal: Reflux - None. 8. Basilic: 8.1. Compressibility - Fully compressible: Thrombus - None: Flow - Phasic: Augmentation -Normal: Reflux - None. OTHER FINDINGS: Right: None. Left: None. IMPRESSION: Right: Acute thrombosis of the right cephalic vein with severe reduction of the venous return. Left: No evidence of vein thrombosis of the left upper extremity with excellent venous flow. Normal valve function noted of the left side.
[2016-11-21] MEDS: (Lantus) Insulin Glargine, Recombinant SC SCH (23:08)
[2016-11-21] MEDS: Rosuvastatin Calcium 2.5 mg Tab PO SCH (23:11)
[2016-11-22] MEDS: Acyclovir 5% Oint (15 gm) EXT SCH ×8 (00:37→21:08)
[2016-11-22] MEDS: (Novolin R) Insulin Human Regular 100 units/ml vial SC SCH ×5 (08:05→22:30)
[2016-11-22] MEDS: Saccharomyces Boulardi 250 mg Cap PO SCH ×4 (09:45→18:32)
[2016-11-22] MEDS: Bacitracin 500 Units/gm Oint Foilpak UD TOP SCH (09:48)
[2016-11-22] MEDS: Clotrimazole 1% Cream(30 gm) TOP SCH ×2 (09:49→18:26)
[2016-11-22] MEDS: Zinc Oxide Topical 30 gm Tube TOP SCH ×4 (09:49→23:09)
--- NOTE | 2016-11-22 10:03 | RAD ---
Chest x-ray History: Fever. Comparison: 11/14/2016 Findings: Right PICC line with tip extending to the proximal SVC. Mild diffuse increased interstitial lung markings suggestive for mild edema and or infiltrate. Biapical pleural thickening with upper lobe granulomatous changes. Left hilar prominence. Mild patchy increased markings at the left lung base. Bibasilar breast and nipple shadows. Small nodular densities at the lung bases likely represent nipple shadows. Heart size within normal limits. Degenerative changes in the spine and shoulders. Impression: Right PICC line with tip extending to the proximal SVC. Mild diffuse increased interstitial lung markings suggestive for mild edema and or infiltrate. Biapical pleural thickening with upper lobe granulomatous changes. Left hilar prominence. Mild patchy increased markings at the left lung base. Bibasilar breast and nipple shadows. Small nodular densities at the lung bases likely represent nipple shadows.
[2016-11-22 11:42] LABS: HEMATOCRIT 21.9 % (34.0-47.0); MEAN CELL VOLUME 94.1 fL (81.0-99.0); MEAN CORPUSCULAR HEMOGLOBIN 30.3 pg (27.0-31.0); MEAN CORPUSCULAR HGB CONC 32.2 g/dL (33.0-37.0); MEAN PLATELET VOLUME 8.4 fL (7.2-11.7); WHITE BLOOD COUNT 13.9 K/uL (4.8-10.8)
--- NOTE | 2016-11-22 17:02 | CP.PCM.PN ---
Subjective - Date & Time of Evaluation Date of Evaluation: 11/22/16 Time of Evaluation: 10:00 - Subjective Subjective: new temp spike noted will reculture prognosis guarded Objective - Vital Signs/Intake and Output Vital Signs (last 24 hours): Temp Pulse Resp BP Pulse Ox 98.4 F 95 H 20 120/71 100 11/22/16 15:42 11/22/16 15:42 11/22/16 15:42 11/22/16 15:42 11/22/16 15:42 - Medications Medications: Current Medications Acyclovir (Zovirax 5% Oint) 0 gm EXT Q3H [facility] Last Admin: 11/22/16 15:40 Dose: Not Given Amlodipine Besylate (Norvasc) 10 mg PO DAILY [facility] Last Admin: 11/22/16 09:46 Dose: 10 mg Aspirin (Ecotrin) 81 mg PO DAILY [facility] Last Admin: 11/22/16 09:43 Dose: 81 mg Bacitracin (Bacitracin) 1 ea TOP DAILY [facility] Last Admin: 11/22/16 09:48 Dose: Not Given Calcium Acetate (Phoslo) 2,668 mg PO TIDCC [facility] Last Admin: 11/22/16 12:00 Dose: 2,668 mg Carvedilol (Coreg) 12.5 mg PO BID [facility] Last Admin: 11/22/16 09:44 Dose: 12.5 mg Cephalexin Monohydrate (Keflex) 500 mg PO Q8H [facility] Last Admin: 11/22/16 09:46 Dose: 500 mg Clotrimazole (Lotrimin 1%) 1 gm TOP BID [facility] Last Admin: 11/22/16 09:49 Dose: Not Given Epoetin Alec (Procrit) 10,000 unit SC MWF [facility] Stop: 11/28/16 23:59 Last Admin: 11/21/16 13:05 Dose: 10,000 unit Ferrous Sulfate (Feosol) 325 mg PO DAILY [facility] Last Admin: 11/22/16 09:46 Dose: 325 mg Heparin Sodium (Porcine) (Heparin) 5,000 units SC Q8 [facility] Last Admin: 11/22/16 13:13 Dose: 5,000 units Hydromorphone HCl (Dilaudid) 0.5 mg IVP Q3H PRN PRN Reason: Pain, severe (8-10) Insulin Glargine (Lantus) 40 unit SC [facility] Last Admin: 11/21/16 23:08 Dose: 40 units Insulin Human Regular (Novolin R) 0 unit SC [facility] PRN Reason: Protocol Last Admin: 11/22/16 12:00 Dose: Not Given Losartan Potassium (Cozaar) 100 mg PO DAILY@1800 [facility] Last Admin: 11/21/16 18:27 Dose: 100 mg Ondansetron HCl (Zofran Inj) 4 mg IVP Q4 PRN PRN Reason: Nausea/Vomiting Last Admin: 11/19/16 11:18 Dose: 4 mg Oxycodone/Acetaminophen (Percocet 5/325 Mg Tab) 1 tab PO Q4H PRN PRN Reason: Pain, Mild (1-3) Stop: 11/23/16 10:46 Last Admin: 11/21/16 18:39 Dose: 1 tab Petrolatum (Desitin Original) 0 gm TOP QID [facility] Last Admin: 11/22/16 13:15 Dose: Not Given Rosuvastatin Calcium (Crestor) 2.5 mg PO [facility] Last Admin: 11/21/16 23:11 Dose: 2.5 mg Saccharomyces Boulardii (Florastor) 250 mg PO TID [facility] Last Admin: 11/22/16 13:15 Dose: 250 mg - Labs Labs: 11/22/16 11:31 11/21/16 07:29 PT 11.0 SECONDS (9.7-12.2) 11/07/16 17:26 INR 1.0 11/07/16 17:26 APTT 27 SECONDS (21-34) 10/26/16 18:15 - Constitutional Appears: Chronically Ill - Head Exam Head Exam: NORMOCEPHALIC - Eye Exam Eye Exam: absent: Scleral icterus - ENT Exam ENT Exam: Mucous Membranes Dry - Neck Exam Neck Exam: absent: Lymphadenopathy - Respiratory Exam Respiratory Exam: Decreased Breath Sounds, Rhonchi - Cardiovascular Exam Cardiovascular Exam: REGULAR RHYTHM, +S1, +S2 - GI/Abdominal Exam GI & Abdominal Exam: Distended, Soft Assessment and Plan (1) Foot infection Status: Acute (2) Lower limb ischemia Status: Acute (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
--- NOTE | 2016-11-22 17:59 | CP.PCM.PN ---
Subjective - Date & Time of Evaluation Date of Evaluation: 11/22/16 Time of Evaluation: 17:57 - Subjective Subjective: pt tearful this am. was febrile 101.6 bp stable pd fluid clear. Objective - Vital Signs/Intake and Output Vital Signs (last 24 hours): Temp Pulse Resp BP Pulse Ox 98.4 F 95 H 20 120/71 100 11/22/16 15:42 11/22/16 15:42 11/22/16 15:42 11/22/16 15:42 11/22/16 15:42 - Medications Medications: Current Medications Acyclovir (Zovirax 5% Oint) 0 gm EXT Q3H [facility] Last Admin: 11/22/16 15:40 Dose: Not Given Amlodipine Besylate (Norvasc) 10 mg PO DAILY [facility] Last Admin: 11/22/16 09:46 Dose: 10 mg Aspirin (Ecotrin) 81 mg PO DAILY [facility] Last Admin: 11/22/16 09:43 Dose: 81 mg Bacitracin (Bacitracin) 1 ea TOP DAILY [facility] Last Admin: 11/22/16 09:48 Dose: Not Given Calcium Acetate (Phoslo) 2,668 mg PO TIDCC [facility] Last Admin: 11/22/16 12:00 Dose: 2,668 mg Carvedilol (Coreg) 12.5 mg PO BID [facility] Last Admin: 11/22/16 09:44 Dose: 12.5 mg Clotrimazole (Lotrimin 1%) 1 gm TOP BID [facility] Last Admin: 11/22/16 09:49 Dose: Not Given Epoetin Alec (Procrit) 10,000 unit SC MWF [facility] Stop: 11/28/16 23:59 Last Admin: 11/21/16 13:05 Dose: 10,000 unit Ferrous Sulfate (Feosol) 325 mg PO DAILY [facility] Last Admin: 11/22/16 09:46 Dose: 325 mg Heparin Sodium (Porcine) (Heparin) 5,000 units SC Q8 [facility] Last Admin: 11/22/16 13:13 Dose: 5,000 units Hydromorphone HCl (Dilaudid) 0.5 mg IVP Q3H PRN PRN Reason: Pain, severe (8-10) Gentamicin Sulfate 80 mg/ (Sodium Chloride) 102 mls @ 100 mls/hr IVPB Q8H [facility] Stop: 11/22/16 18:04 Insulin Glargine (Lantus) 40 unit SC [facility] Last Admin: 11/21/16 23:08 Dose: 40 units Insulin Human Regular (Novolin R) 0 unit SC [facility] PRN Reason: Protocol Last Admin: 11/22/16 12:00 Dose: Not Given Linezolid (Zyvox) 600 mg PO Q12H [facility] Losartan Potassium (Cozaar) 100 mg PO DAILY@1800 [facility] Last Admin: 11/21/16 18:27 Dose: 100 mg Ondansetron HCl (Zofran Inj) 4 mg IVP Q4 PRN PRN Reason: Nausea/Vomiting Last Admin: 11/19/16 11:18 Dose: 4 mg Oxycodone/Acetaminophen (Percocet 5/325 Mg Tab) 1 tab PO Q4H PRN PRN Reason: Pain, Mild (1-3) Stop: 11/23/16 10:46 Last Admin: 11/21/16 18:39 Dose: 1 tab Petrolatum (Desitin Original) 0 gm TOP QID [facility] Last Admin: 11/22/16 13:15 Dose: Not Given Rosuvastatin Calcium (Crestor) 2.5 mg PO [facility] Last Admin: 11/21/16 23:11 Dose: 2.5 mg Saccharomyces Boulardii (Florastor) 250 mg PO TID [facility] Last Admin: 11/22/16 13:15 Dose: 250 mg - Labs Labs: 11/22/16 11:31 11/21/16 07:29 PT 11.0 SECONDS (9.7-12.2) 11/07/16 17:26 INR 1.0 11/07/16 17:26 APTT 27 SECONDS (21-34) 10/26/16 18:15 - Constitutional Appears: Non-toxic, No Acute Distress, Chronically Ill - Head Exam Head Exam: NORMAL INSPECTION - Eye Exam Eye Exam: Normal appearance - ENT Exam ENT Exam: Mucous Membranes Moist, Normal Exam - Neck Exam Neck Exam: Normal Inspection - Respiratory Exam Respiratory Exam: Clear to Ausculation Bilateral, NORMAL BREATHING PATTERN - Cardiovascular Exam Cardiovascular Exam: REGULAR RHYTHM, RRR - GI/Abdominal Exam GI & Abdominal Exam: Distended, Soft, Diminished Bowel Sounds - Extremities Exam Extremities Exam: Tenderness - Neurological Exam Neurological Exam: Alert, Awake - Psychiatric Exam Psychiatric exam: Anxious, Depressed Assessment and Plan (1) Chronic anemia Status: Acute (2) Foot infection Status: Acute (3) Lower limb ischemia Status: Acute (4) Type 2 diabetes mellitus with diabetic nephropathy Status: Acute (5) Diabetes mellitus Status: Acute (6) ESRD on peritoneal dialysis Status: Acute - Assessment and Plan (Free Text) Assessment: maintain pd pd fluid cell count and culture fever likely 2/2 foot gangrene.
--- NOTE | 2016-11-22 19:22 | CP.PCM.PN ---
Subjective - Date & Time of Evaluation Date of Evaluation: 11/22/16 Time of Evaluation: 19:21 - Subjective Subjective: Patient's a right leg wound reviewed, some minimal foul smelling discharge in the upper one third noted. Cultures were taken. Patient had a fever today. Cultures were taken from the blood. CBC, nonspecific. Currently on a by mouth antibiotic. Patient blood sugar is controlled. Will continue to monitor. If the fever improves and if the cultures are negative patient can be discharged , will follow the patient Objective - Vital Signs/Intake and Output Vital Signs (last 24 hours): Temp Pulse Resp BP Pulse Ox 98.4 F 95 H 20 146/78 100 11/22/16 15:42 11/22/16 15:42 11/22/16 15:42 11/22/16 18:27 11/22/16 15:42 - Medications Medications: Current Medications Acyclovir (Zovirax 5% Oint) 0 gm EXT Q3H [facility] Last Admin: 11/22/16 18:32 Dose: Not Given Amlodipine Besylate (Norvasc) 10 mg PO DAILY [facility] Last Admin: 11/22/16 09:46 Dose: 10 mg Aspirin (Ecotrin) 81 mg PO DAILY [facility] Last Admin: 11/22/16 09:43 Dose: 81 mg Bacitracin (Bacitracin) 1 ea TOP DAILY [facility] Last Admin: 11/22/16 09:48 Dose: Not Given Calcium Acetate (Phoslo) 2,668 mg PO TIDCC [facility] Last Admin: 11/22/16 18:13 Dose: 2,668 mg Carvedilol (Coreg) 12.5 mg PO BID [facility] Last Admin: 11/22/16 18:27 Dose: 12.5 mg Clotrimazole (Lotrimin 1%) 1 gm TOP BID [facility] Last Admin: 11/22/16 18:26 Dose: 1 gm Epoetin Alec (Procrit) 10,000 unit SC MWF [facility] Stop: 11/28/16 23:59 Last Admin: 11/21/16 13:05 Dose: 10,000 unit Ferrous Sulfate (Feosol) 325 mg PO DAILY [facility] Last Admin: 11/22/16 09:46 Dose: 325 mg Heparin Sodium (Porcine) (Heparin) 5,000 units SC Q8 [facility] Last Admin: 11/22/16 13:13 Dose: 5,000 units Hydromorphone HCl (Dilaudid) 0.5 mg IVP Q3H PRN PRN Reason: Pain, severe (8-10) Insulin Glargine (Lantus) 40 unit SC [facility] Last Admin: 11/21/16 23:08 Dose: 40 units Insulin Human Regular (Novolin R) 0 unit SC [facility] PRN Reason: Protocol Last Admin: 11/22/16 17:24 Dose: Not Given Linezolid (Zyvox) 600 mg PO Q12H [facility] Last Admin: 11/22/16 18:12 Dose: 600 mg Losartan Potassium (Cozaar) 100 mg PO DAILY@1800 [facility] Last Admin: 11/22/16 18:19 Dose: 100 mg Ondansetron HCl (Zofran Inj) 4 mg IVP Q4 PRN PRN Reason: Nausea/Vomiting Last Admin: 11/19/16 11:18 Dose: 4 mg Oxycodone/Acetaminophen (Percocet 5/325 Mg Tab) 1 tab PO Q4H PRN PRN Reason: Pain, Mild (1-3) Stop: 11/23/16 10:46 Last Admin: 11/21/16 18:39 Dose: 1 tab Petrolatum (Desitin Original) 0 gm TOP QID [facility] Last Admin: 11/22/16 18:32 Dose: Not Given Rosuvastatin Calcium (Crestor) 2.5 mg PO [facility] Last Admin: 11/21/16 23:11 Dose: 2.5 mg Saccharomyces Boulardii (Florastor) 250 mg PO TID [facility] Last Admin: 11/22/16 18:32 Dose: 250 mg - Labs Labs: 11/22/16 11:31 11/21/16 07:29 PT 11.0 SECONDS (9.7-12.2) 11/07/16 17:26 INR 1.0 11/07/16 17:26 APTT 27 SECONDS (21-34) 10/26/16 18:15 Assessment and Plan (1) Foot infection Status: Acute (2) Lower limb ischemia Status: Acute (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
[2016-11-22] MEDS: (Lantus) Insulin Glargine, Recombinant SC SCH (22:45)
[2016-11-22] MEDS: Rosuvastatin Calcium 2.5 mg Tab PO SCH (22:56)
[2016-11-23] MEDS: Acyclovir 5% Oint (15 gm) EXT SCH ×7 (03:00→21:04)
[2016-11-23] MEDS: (Novolin R) Insulin Human Regular 100 units/ml vial SC SCH ×4 (08:40→22:43)
[2016-11-23] MEDS: Bacitracin 500 Units/gm Oint Foilpak UD TOP SCH (09:51)
[2016-11-23] MEDS: Zinc Oxide Topical 30 gm Tube TOP SCH ×4 (09:52→22:41)
[2016-11-23] MEDS: Saccharomyces Boulardi 250 mg Cap PO SCH ×3 (09:53→17:50)
[2016-11-23] MEDS: Clotrimazole 1% Cream(30 gm) TOP SCH ×2 (09:53→17:55)
[2016-11-23] MEDS: EPOETIN ALFA 10,000 UNIT/ML ML SC SCH (13:25)
--- NOTE | 2016-11-23 13:45 | CP.PCM.PN ---
Subjective - Date & Time of Evaluation Date of Evaluation: 11/23/16 Time of Evaluation: 08:00 - Subjective Subjective: t max down rx in progress started zyvox given stat dose genta await cultures Objective - Vital Signs/Intake and Output Vital Signs (last 24 hours): Temp Pulse Resp BP Pulse Ox 99.7 F H 97 H 20 95/60 L 97 11/23/16 08:43 11/23/16 08:43 11/23/16 08:43 11/23/16 08:43 11/23/16 08:43 - Medications Medications: Current Medications Acetaminophen (Tylenol 325mg Tab) 650 mg PO Q6 PRN PRN Reason: Pain, moderate (4-7) Last Admin: 11/23/16 05:05 Dose: 650 mg Acyclovir (Zovirax 5% Oint) 0 gm EXT Q3H [facility] Last Admin: 11/23/16 09:54 Dose: Not Given Amlodipine Besylate (Norvasc) 10 mg PO DAILY [facility] Last Admin: 11/23/16 10:00 Dose: Not Given Aspirin (Ecotrin) 81 mg PO DAILY [facility] Last Admin: 11/23/16 09:53 Dose: 81 mg Bacitracin (Bacitracin) 1 ea TOP DAILY [facility] Last Admin: 11/23/16 09:51 Dose: Not Given Calcium Acetate (Phoslo) 2,668 mg PO TIDCC [facility] Last Admin: 11/23/16 13:25 Dose: 2,668 mg Carvedilol (Coreg) 12.5 mg PO BID [facility] Last Admin: 11/23/16 09:52 Dose: Not Given Clotrimazole (Lotrimin 1%) 1 gm TOP BID [facility] Last Admin: 11/23/16 09:53 Dose: Not Given Epoetin Alec (Procrit) 10,000 unit SC MWF [facility] Stop: 11/28/16 23:59 Last Admin: 11/23/16 13:25 Dose: 10,000 unit Ferrous Sulfate (Feosol) 325 mg PO DAILY [facility] Last Admin: 11/23/16 09:53 Dose: 325 mg Heparin Sodium (Porcine) (Heparin) 5,000 units SC Q8 [facility] Last Admin: 11/23/16 06:29 Dose: Not Given Hydromorphone HCl (Dilaudid) 0.5 mg IVP Q3H PRN PRN Reason: Pain, severe (8-10) Insulin Glargine (Lantus) 40 unit SC [facility] Last Admin: 11/22/16 22:45 Dose: Not Given Insulin Human Regular (Novolin R) 0 unit SC [facility] PRN Reason: Protocol Last Admin: 11/23/16 08:40 Dose: Not Given Linezolid (Zyvox) 600 mg PO Q12H [facility] Last Admin: 11/23/16 05:10 Dose: 600 mg Losartan Potassium (Cozaar) 100 mg PO DAILY@1800 [facility] Last Admin: 11/22/16 18:19 Dose: 100 mg Ondansetron HCl (Zofran Inj) 4 mg IVP Q4 PRN PRN Reason: Nausea/Vomiting Last Admin: 11/19/16 11:18 Dose: 4 mg Petrolatum (Desitin Original) 0 gm TOP QID [facility] Last Admin: 11/23/16 09:52 Dose: Not Given Rosuvastatin Calcium (Crestor) 2.5 mg PO [facility] Last Admin: 11/22/16 22:56 Dose: 2.5 mg Saccharomyces Boulardii (Florastor) 250 mg PO TID [facility] Last Admin: 11/23/16 13:25 Dose: 250 mg - Labs Labs: 11/22/16 11:31 11/21/16 07:29 PT 11.0 SECONDS (9.7-12.2) 11/07/16 17:26 INR 1.0 11/07/16 17:26 APTT 27 SECONDS (21-34) 10/26/16 18:15 Assessment and Plan (1) Foot infection Status: Acute (2) Lower limb ischemia Status: Acute (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
[2016-11-23 14:02] LABS: BODY FLUID TYPE PERITONEAL
[2016-11-23 14:50] LABS: BF GROSS APPEARANCE CLEAR (CLEAR)
--- NOTE | 2016-11-23 16:14 | CP.PCM.PN ---
Subjective - Date & Time of Evaluation Date of Evaluation: 11/23/16 Time of Evaluation: 16:12 - Subjective Subjective: seen and examined ongoing pd fluid clear, no abdominal tenderness / discharge from cath site fluid cell count noted- bloody specimen. pending cultures low grade fevers Objective - Vital Signs/Intake and Output Vital Signs (last 24 hours): Temp Pulse Resp BP Pulse Ox 99 F 103 H 20 153/75 H 96 11/23/16 15:40 11/23/16 15:40 11/23/16 15:40 11/23/16 15:40 11/23/16 15:40 - Medications Medications: Current Medications Acetaminophen (Tylenol 325mg Tab) 650 mg PO Q6 PRN PRN Reason: Pain, moderate (4-7) Last Admin: 11/23/16 05:05 Dose: 650 mg Acyclovir (Zovirax 5% Oint) 0 gm EXT Q3H [facility] Last Admin: 11/23/16 09:54 Dose: Not Given Amlodipine Besylate (Norvasc) 10 mg PO DAILY [facility] Last Admin: 11/23/16 10:00 Dose: Not Given Aspirin (Ecotrin) 81 mg PO DAILY [facility] Last Admin: 11/23/16 09:53 Dose: 81 mg Bacitracin (Bacitracin) 1 ea TOP DAILY [facility] Last Admin: 11/23/16 09:51 Dose: Not Given Calcium Acetate (Phoslo) 2,668 mg PO TIDCC [facility] Last Admin: 11/23/16 13:25 Dose: 2,668 mg Carvedilol (Coreg) 12.5 mg PO BID [facility] Last Admin: 11/23/16 09:52 Dose: Not Given Clotrimazole (Lotrimin 1%) 1 gm TOP BID [facility] Last Admin: 11/23/16 09:53 Dose: Not Given Epoetin Alec (Procrit) 10,000 unit SC MWF [facility] Stop: 11/28/16 23:59 Last Admin: 11/23/16 13:25 Dose: 10,000 unit Ferrous Sulfate (Feosol) 325 mg PO DAILY [facility] Last Admin: 11/23/16 09:53 Dose: 325 mg Heparin Sodium (Porcine) (Heparin) 5,000 units SC Q8 [facility] Last Admin: 11/23/16 14:11 Dose: Not Given Hydromorphone HCl (Dilaudid) 0.5 mg IVP Q3H PRN PRN Reason: Pain, severe (8-10) Insulin Glargine (Lantus) 40 unit SC [facility] Last Admin: 11/22/16 22:45 Dose: Not Given Insulin Human Regular (Novolin R) 0 unit SC [facility] PRN Reason: Protocol Last Admin: 11/23/16 12:11 Dose: Not Given Linezolid (Zyvox) 600 mg PO Q12H [facility] Last Admin: 11/23/16 05:10 Dose: 600 mg Losartan Potassium (Cozaar) 100 mg PO DAILY@1800 [facility] Last Admin: 11/22/16 18:19 Dose: 100 mg Ondansetron HCl (Zofran Inj) 4 mg IVP Q4 PRN PRN Reason: Nausea/Vomiting Last Admin: 11/19/16 11:18 Dose: 4 mg Petrolatum (Desitin Original) 0 gm TOP QID [facility] Last Admin: 11/23/16 14:11 Dose: Not Given Rosuvastatin Calcium (Crestor) 2.5 mg PO [facility] Last Admin: 11/22/16 22:56 Dose: 2.5 mg Saccharomyces Boulardii (Florastor) 250 mg PO TID [facility] Last Admin: 11/23/16 13:25 Dose: 250 mg - Labs Labs: 11/22/16 11:31 11/21/16 07:29 PT 11.0 SECONDS (9.7-12.2) 11/07/16 17:26 INR 1.0 11/07/16 17:26 APTT 27 SECONDS (21-34) 10/26/16 18:15 - Constitutional Appears: Non-toxic, No Acute Distress, Chronically Ill - Head Exam Head Exam: NORMAL INSPECTION - Eye Exam Eye Exam: Normal appearance - ENT Exam ENT Exam: Mucous Membranes Moist, Normal Exam - Neck Exam Neck Exam: Normal Inspection - Respiratory Exam Respiratory Exam: Decreased Breath Sounds, Clear to Ausculation Bilateral, NORMAL BREATHING PATTERN - Cardiovascular Exam Cardiovascular Exam: REGULAR RHYTHM, RRR - GI/Abdominal Exam GI & Abdominal Exam: Distended, Soft, Hypoactive Bowel Sounds - Extremities Exam Extremities Exam: Normal Inspection (dressing foot, pt not allowing touch. no edema) Assessment and Plan (1) Chronic anemia Status: Acute (2) Foot infection Status: Acute (3) Lower limb ischemia Status: Acute (4) Type 2 diabetes mellitus with diabetic nephropathy Status: Acute (5) Diabetes mellitus Status: Acute (6) ESRD on peritoneal dialysis Status: Acute - Assessment and Plan (Free Text) Assessment: maintain pd pd fluid culture pending fever likely 2/2 foot gangrene. antibiotics per ID. Needs foot amputation.
[2016-11-23] MEDS: Rosuvastatin Calcium 2.5 mg Tab PO SCH (22:41)
[2016-11-23] MEDS: (Lantus) Insulin Glargine, Recombinant SC SCH (22:43)
[2016-11-24] MEDS: Acyclovir 5% Oint (15 gm) EXT SCH ×7 (00:31→20:56)
[2016-11-24 07:12] LABS: BASO # 0.1 K/uL (0.0-0.2); BASO % 0.6 % (0.0-2.0); EOS # 0.1 K/uL (0.0-0.7); EOS % 0.9 % (0.0-4.0); HEMATOCRIT 21.8 % (34.0-47.0); LYMPH # 0.9 K/uL (1.0-4.3); LYMPH % 6.9 % (20.0-40.0); MEAN CELL VOLUME 93.1 fL (81.0-99.0); MEAN CORPUSCULAR HGB CONC 32.2 g/dL (33.0-37.0); MEAN PLATELET VOLUME 8.4 fL (7.2-11.7); MONO # 0.8 K/uL (0.0-0.8); MONO % 5.9 % (0.0-10.0); NRBC % 0.1 % (0.0-2.0); PLATELET COUNT 367 K/uL (130-400); RED CELL DISTRIBUTION WIDTH 17.5 % (11.5-14.5); WHITE BLOOD COUNT 12.9 K/uL (4.8-10.8)
[2016-11-24] MEDS: (Novolin R) Insulin Human Regular 100 units/ml vial SC SCH ×4 (07:49→22:04)
--- NOTE | 2016-11-24 10:36 | CP.PCM.PN ---
Subjective - Date & Time of Evaluation Date of Evaluation: 11/24/16 Time of Evaluation: 10:30 - Subjective Subjective: pain persists over rt groin leg and foot temp 102.8 this AM Appears well cultures dialysaite and blood ordered antibitics ordered by ID Objective - Vital Signs/Intake and Output Vital Signs (last 24 hours): Temp Pulse Resp BP Pulse Ox 102.8 F H 108 H 20 134/76 86 L 11/24/16 07:48 11/24/16 07:00 11/24/16 07:00 11/24/16 07:00 11/24/16 07:00 Intake and Output: 11/24/16 11/24/16 06:59 18:59 Intake Total 240 Balance 240 - Medications Medications: Current Medications Acetaminophen (Tylenol 325mg Tab) 650 mg PO Q6 PRN PRN Reason: Pain, moderate (4-7) Last Admin: 11/24/16 07:48 Dose: 650 mg Acyclovir (Zovirax 5% Oint) 0 gm EXT Q3H [facility] Last Admin: 11/24/16 06:49 Dose: Not Given Amlodipine Besylate (Norvasc) 10 mg PO DAILY [facility] Last Admin: 11/23/16 10:00 Dose: Not Given Aspirin (Ecotrin) 81 mg PO DAILY [facility] Last Admin: 11/23/16 09:53 Dose: 81 mg Bacitracin (Bacitracin) 1 ea TOP DAILY [facility] Last Admin: 11/23/16 09:51 Dose: Not Given Calcium Acetate (Phoslo) 2,668 mg PO TIDCC [facility] Last Admin: 11/24/16 07:47 Dose: 2,668 mg Carvedilol (Coreg) 12.5 mg PO BID [facility] Last Admin: 11/23/16 17:51 Dose: 12.5 mg Clotrimazole (Lotrimin 1%) 1 gm TOP BID [facility] Last Admin: 11/23/16 17:55 Dose: Not Given Epoetin Alec (Procrit) 10,000 unit SC MWF [facility] Stop: 11/28/16 23:59 Last Admin: 11/23/16 13:25 Dose: 10,000 unit Ferrous Sulfate (Feosol) 325 mg PO DAILY [facility] Last Admin: 11/23/16 09:53 Dose: 325 mg Heparin Sodium (Porcine) (Heparin) 5,000 units SC Q8 [facility] Last Admin: 11/24/16 05:35 Dose: Not Given Hydromorphone HCl (Dilaudid) 0.5 mg IVP Q3H PRN PRN Reason: Pain, severe (8-10) Last Admin: 11/23/16 23:16 Dose: 0.5 mg Cefepime HCl 1 gm/ Dextrose 50 mls @ 100 mls/hr IVPB Q12H [facility] Meropenem 500 mg/ Sodium (Chloride) 100 mls @ 100 mls/hr IVPB Q12 [facility] Insulin Glargine (Lantus) 40 unit SC [facility] Last Admin: 11/23/16 22:43 Dose: Not Given Insulin Human Regular (Novolin R) 0 unit SC ACHS [facility] PRN Reason: Protocol Last Admin: 11/24/16 07:49 Dose: 6 unit Linezolid (Zyvox) 600 mg PO Q12H [facility] Last Admin: 11/24/16 05:38 Dose: 600 mg Losartan Potassium (Cozaar) 100 mg PO DAILY@1800 [facility] Last Admin: 11/23/16 21:06 Dose: Not Given Ondansetron HCl (Zofran Inj) 4 mg IVP Q4 PRN PRN Reason: Nausea/Vomiting Last Admin: 11/19/16 11:18 Dose: 4 mg Petrolatum (Desitin Original) 0 gm TOP QID [facility] Last Admin: 11/23/16 22:41 Dose: Not Given Rosuvastatin Calcium (Crestor) 2.[address] [facility] Last Admin: 11/23/16 22:41 Dose: Not Given Saccharomyces Boulardii (Florastor) 250 mg PO TID [facility] Last Admin: 11/23/16 17:50 Dose: 250 mg - Labs Labs: 11/24/16 07:00 11/21/16 07:29 PT 11.0 SECONDS (9.7-12.2) 11/07/16 17:26 INR 1.0 11/07/16 17:26 APTT 27 SECONDS (21-34) 10/26/16 18:15
[2016-11-24] MEDS: Saccharomyces Boulardi 250 mg Cap PO SCH ×3 (10:40→18:47)
--- NOTE | 2016-11-24 10:40 | CP.PCM.PN ---
Subjective - Date & Time of Evaluation Date of Evaluation: 11/24/16 Time of Evaluation: 10:40 - Subjective Subjective: complains of pain rt groin rt leg pain persts temp up to 102.8 bp stable appears well flow sheets pd not available fluid clear grossly dialysate cultres obtained No sob no chest pain no abdomenal pain [place] no vomitind no diarrhea Objective - Vital Signs/Intake and Output Vital Signs (last 24 hours): Temp Pulse Resp BP Pulse Ox 102.8 F H 108 H 20 134/76 86 L 11/24/16 07:48 11/24/16 07:00 11/24/16 07:00 11/24/16 07:00 11/24/16 07:00 Intake and Output: 11/24/16 11/24/16 06:59 18:59 Intake Total 240 Balance 240 - Medications Medications: Current Medications Acetaminophen (Tylenol 325mg Tab) 650 mg PO Q6 PRN PRN Reason: Pain, moderate (4-7) Last Admin: 11/24/16 07:48 Dose: 650 mg Acyclovir (Zovirax 5% Oint) 0 gm EXT Q3H [facility] Last Admin: 11/24/16 06:49 Dose: Not Given Amlodipine Besylate (Norvasc) 10 mg PO DAILY [facility] Last Admin: 11/23/16 10:00 Dose: Not Given Aspirin (Ecotrin) 81 mg PO DAILY [facility] Last Admin: 11/23/16 09:53 Dose: 81 mg Bacitracin (Bacitracin) 1 ea TOP DAILY [facility] Last Admin: 11/23/16 09:51 Dose: Not Given Calcium Acetate (Phoslo) 2,668 mg PO TIDCC [facility] Last Admin: 11/24/16 07:47 Dose: 2,668 mg Carvedilol (Coreg) 12.5 mg PO BID [facility] Last Admin: 11/23/16 17:51 Dose: 12.5 mg Clotrimazole (Lotrimin 1%) 1 gm TOP BID [facility] Last Admin: 11/23/16 17:55 Dose: Not Given Epoetin Alec (Procrit) 10,000 unit SC MWF [facility] Stop: 11/28/16 23:59 Last Admin: 11/23/16 13:25 Dose: 10,000 unit Ferrous Sulfate (Feosol) 325 mg PO DAILY [facility] Last Admin: 11/23/16 09:53 Dose: 325 mg Heparin Sodium (Porcine) (Heparin) 5,000 units SC Q8 [facility] Last Admin: 11/24/16 05:35 Dose: Not Given Hydromorphone HCl (Dilaudid) 0.5 mg IVP Q3H PRN PRN Reason: Pain, severe (8-10) Last Admin: 11/23/16 23:16 Dose: 0.5 mg Cefepime HCl 1 gm/ Dextrose 50 mls @ 100 mls/hr IVPB Q12H [facility] Meropenem 500 mg/ Sodium (Chloride) 100 mls @ 100 mls/hr IVPB Q12 [facility] Insulin Glargine (Lantus) 40 unit SC [facility] Last Admin: 11/23/16 22:43 Dose: Not Given Insulin Human Regular (Novolin R) 0 unit SC ACHS [facility] PRN Reason: Protocol Last Admin: 11/24/16 07:49 Dose: 6 unit Linezolid (Zyvox) 600 mg PO Q12H [facility] Last Admin: 11/24/16 05:38 Dose: 600 mg Losartan Potassium (Cozaar) 100 mg PO DAILY@1800 [facility] Last Admin: 11/23/16 21:06 Dose: Not Given Ondansetron HCl (Zofran Inj) 4 mg IVP Q4 PRN PRN Reason: Nausea/Vomiting Last Admin: 11/19/16 11:18 Dose: 4 mg Petrolatum (Desitin Original) 0 gm TOP QID [facility] Last Admin: 11/23/16 22:41 Dose: Not Given Rosuvastatin Calcium (Crestor) 2.5 mg PO [facility] Last Admin: 11/23/16 22:41 Dose: Not Given Saccharomyces Boulardii (Florastor) 250 mg PO TID [facility] Last Admin: 11/23/16 17:50 Dose: 250 mg - Labs Labs: 11/24/16 07:00 11/21/16 07:29 PT 11.0 SECONDS (9.7-12.2) 11/07/16 17:26 INR 1.0 11/07/16 17:26 APTT 27 SECONDS (21-34) 10/26/16 18:15 - Constitutional Appears: No Acute Distress - Eye Exam Eye Exam: absent: Conjunctival injection - ENT Exam ENT Exam: Mucous Membranes Moist - Respiratory Exam Respiratory Exam: Clear to Ausculation Bilateral - Cardiovascular Exam Cardiovascular Exam: REGULAR RHYTHM - GI/Abdominal Exam GI & Abdominal Exam: Distended, Soft. absent: Tenderness, Rebound - Extremities Exam Additional comments: rt medial leg and foot bandaged tender over bandage and rt groin - Psychiatric Exam Psychiatric exam: Normal Affect - Skin Skin Exam: Dry Assessment and Plan (1) Lower limb ischemia Status: Acute (2) Type 2 diabetes mellitus with diabetic nephropathy Status: Acute (3) Diabetes mellitus Status: Acute (4) ESRD on peritoneal dialysis Status: Acute - Assessment and Plan (Free Text) Assessment: antibitics per id Plan: reorder chems maintain present pd rx antibitics per ID blood cultres ordered
[2016-11-24] MEDS ORDERED: Meropenem 500 MG in Sodium Chloride 0.9% 100 ML IVPB ONE ×2 (11:00→11:30)
[2016-11-24] MEDS: Clotrimazole 1% Cream(30 gm) TOP SCH ×2 (11:20→17:10)
[2016-11-24] MEDS: Zinc Oxide Topical 30 gm Tube TOP SCH ×3 (11:21→22:03)
[2016-11-24 11:29] LABS: EOSINOPHIL 1 % (0-4); NEUTROPHIL 89 % (50-75); TOTAL CELLS COUNTED 100
[2016-11-24 11:30] LABS: SPHEROCYTES SLIGHT
[2016-11-24] MEDS: Bacitracin 500 Units/gm Oint Foilpak UD TOP SCH (12:14)
--- NOTE | 2016-11-24 13:06 | CP.PCM.PN ---
Subjective - Date & Time of Evaluation Date of Evaluation: 11/24/16 Time of Evaluation: 13:04 - Subjective Subjective: Pt seen at bedside for f/u right foot gangrene. Pt c/o pain in right leg. Pt spiked fever, so came back to see pt at request of Dr. Cronin. Pt cont to state that she does not want any surgical intervention on her right foot. She wants to cont with IV abx and see how she does. Will cont to monitor area while pt is inhouse. Objective - Vital Signs/Intake and Output Vital Signs (last 24 hours): Temp Pulse Resp BP Pulse Ox 99.6 F 108 H 20 100/64 86 L 11/24/16 08:48 11/24/16 07:00 11/24/16 07:00 11/24/16 10:39 11/24/16 07:00 Intake and Output: 11/24/16 11/24/16 06:59 18:59 Intake Total 240 Balance 240 - Medications Medications: Current Medications Acetaminophen (Tylenol 325mg Tab) 650 mg PO Q6 PRN PRN Reason: Pain, moderate (4-7) Last Admin: 11/24/16 07:48 Dose: 650 mg Acyclovir (Zovirax 5% Oint) 0 gm EXT Q3H [facility] Last Admin: 11/24/16 12:15 Dose: Not Given Amlodipine Besylate (Norvasc) 10 mg PO DAILY [facility] Last Admin: 11/24/16 11:20 Dose: Not Given Aspirin (Ecotrin) 81 mg PO DAILY [facility] Last Admin: 11/24/16 10:40 Dose: 81 mg Bacitracin (Bacitracin) 1 ea TOP DAILY [facility] Last Admin: 11/24/16 12:14 Dose: Not Given Calcium Acetate (Phoslo) 2,668 mg PO TIDCC [facility] Last Admin: 11/24/16 12:16 Dose: Not Given Carvedilol (Coreg) 12.5 mg PO BID [facility] Last Admin: 11/24/16 10:39 Dose: Not Given Clotrimazole (Lotrimin 1%) 1 gm TOP BID [facility] Last Admin: 11/24/16 11:20 Dose: Not Given Epoetin Alec (Procrit) 10,000 unit SC MWF [facility] Stop: 11/28/16 23:59 Last Admin: 11/23/16 13:25 Dose: 10,000 unit Ferrous Sulfate (Feosol) 325 mg PO DAILY [facility] Last Admin: 11/24/16 10:40 Dose: 325 mg Heparin Sodium (Porcine) (Heparin) 5,000 units SC Q8 [facility] Last Admin: 11/24/16 05:35 Dose: Not Given Hydromorphone HCl (Dilaudid) 0.5 mg IVP Q3H PRN PRN Reason: Pain, severe (8-10) Last Admin: 11/23/16 23:16 Dose: 0.5 mg Meropenem 500 mg/ Sodium (Chloride) 100 mls @ 100 mls/hr IVPB Q12 [facility] Insulin Glargine (Lantus) 40 unit SC HS [facility] Last Admin: 11/23/16 22:43 Dose: Not Given Insulin Human Regular (Novolin R) 0 unit SC ACHS [facility] PRN Reason: Protocol Last Admin: 11/24/16 07:49 Dose: 6 unit Linezolid (Zyvox) 600 mg PO Q12H [facility] Last Admin: 11/24/16 05:38 Dose: 600 mg Losartan Potassium (Cozaar) 100 mg PO DAILY@1800 [facility] Last Admin: 11/23/16 21:06 Dose: Not Given Ondansetron HCl (Zofran Inj) 4 mg IVP Q4 PRN PRN Reason: Nausea/Vomiting Last Admin: 11/19/16 11:18 Dose: 4 mg Petrolatum (Desitin Original) 0 gm TOP QID [facility] Last Admin: 11/24/16 11:21 Dose: Not Given Rosuvastatin Calcium (Crestor) 2.5 mg PO HS [facility] Last Admin: 11/23/16 22:41 Dose: Not Given Saccharomyces Boulardii (Florastor) 250 mg PO TID [facility] Last Admin: 11/24/16 10:40 Dose: 250 mg - Labs Labs: 11/24/16 07:00 11/21/16 07:29 PT 11.0 SECONDS (9.7-12.2) 11/07/16 17:26 INR 1.0 11/07/16 17:26 APTT 27 SECONDS (21-34) 10/26/16 18:15
--- NOTE | 2016-11-24 20:24 | CP.PCM.PN ---
Subjective - Date & Time of Evaluation Date of Evaluation: 11/24/16 Time of Evaluation: 20:22 - Subjective Subjective: pt had fever this am culture done hb low one unit transfusion done no appetite pooryly eating no diarrhea now rt foot gangrene noted dressed again blood sugar uncontrollable Objective - Vital Signs/Intake and Output Vital Signs (last 24 hours): Temp Pulse Resp BP Pulse Ox 99.8 F H 80 20 123/76 95 11/24/16 17:59 11/24/16 17:59 11/24/16 15:22 11/24/16 18:46 11/24/16 14:55 Intake and Output: 11/24/16 11/25/16 18:59 06:59 Intake Total 325 Balance 325 - Medications Medications: Current Medications Acetaminophen (Tylenol 325mg Tab) 650 mg PO Q6 PRN PRN Reason: Pain, moderate (4-7) Last Admin: 11/24/16 14:39 Dose: 650 mg Acyclovir (Zovirax 5% Oint) 0 gm EXT Q3H [facility] Last Admin: 11/24/16 17:10 Dose: Not Given Amlodipine Besylate (Norvasc) 10 mg PO DAILY [facility] Last Admin: 11/24/16 11:20 Dose: Not Given Aspirin (Ecotrin) 81 mg PO DAILY [facility] Last Admin: 11/24/16 10:40 Dose: 81 mg Bacitracin (Bacitracin) 1 ea TOP DAILY [facility] Last Admin: 11/24/16 12:14 Dose: Not Given Calcium Acetate (Phoslo) 2,668 mg PO TIDCC [facility] Last Admin: 11/24/16 18:47 Dose: 2,668 mg Carvedilol (Coreg) 12.5 mg PO BID [facility] Last Admin: 11/24/16 18:46 Dose: 12.5 mg Clotrimazole (Lotrimin 1%) 1 gm TOP BID [facility] Last Admin: 11/24/16 17:10 Dose: Not Given Epoetin Alec (Procrit) 10,000 unit SC MWF [facility] Stop: 11/28/16 23:59 Last Admin: 11/23/16 13:25 Dose: 10,000 unit Ferrous Sulfate (Feosol) 325 mg PO DAILY [facility] Last Admin: 11/24/16 10:40 Dose: 325 mg Heparin Sodium (Porcine) (Heparin) 5,000 units SC Q8 [facility] Last Admin: 11/24/16 13:29 Dose: Not Given Hydromorphone HCl (Dilaudid) 0.5 mg IVP Q3H PRN PRN Reason: Pain, severe (8-10) Last Admin: 11/23/16 23:16 Dose: 0.5 mg Meropenem 500 mg/ Sodium (Chloride) 100 mls @ 100 mls/hr IVPB Q12 [facility] Insulin Glargine (Lantus) [address] [facility] Last Admin: 11/23/16 22:43 Dose: Not Given Insulin Human Regular (Novolin R) 0 unit SC ACHS [facility] PRN Reason: Protocol Last Admin: 11/24/16 18:47 Dose: 2 unit Linezolid (Zyvox) 600 mg PO Q12H [facility] Last Admin: 11/24/16 18:47 Dose: 600 mg Losartan Potassium (Cozaar) 100 mg PO DAILY@1800 [facility] Last Admin: 11/23/16 21:06 Dose: Not Given Ondansetron HCl (Zofran Inj) 4 mg IVP Q4 PRN PRN Reason: Nausea/Vomiting Last Admin: 11/19/16 11:18 Dose: 4 mg Petrolatum (Desitin Original) 0 gm TOP QID [facility] Last Admin: 11/24/16 18:54 Dose: Not Given Rosuvastatin Calcium (Crestor) 2.[address] [facility] Last Admin: 11/23/16 22:41 Dose: Not Given Saccharomyces Boulardii (Florastor) 250 mg PO TID [facility] Last Admin: 11/24/16 18:47 Dose: 250 mg - Labs Labs: 11/24/16 07:00 11/21/16 07:29 PT 11.0 SECONDS (9.7-12.2) 11/07/16 17:26 INR 1.0 11/07/16 17:26 APTT 27 SECONDS (21-34) 10/26/16 18:15 Assessment and Plan (1) Foot infection Status: Acute (2) Lower limb ischemia Status: Acute (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
[2016-11-24] MEDS: Rosuvastatin Calcium 2.5 mg Tab PO SCH (22:17)
[2016-11-24] MEDS: Meropenem 500 MG in Sodium Chloride 0.9% 100 ML IVPB SCH (22:17)
[2016-11-24] MEDS: (Lantus) Insulin Glargine, Recombinant SC SCH (22:18)
[2016-11-25] MEDS: Acyclovir 5% Oint (15 gm) EXT SCH ×7 (03:00→21:16)
[2016-11-25] MEDS: (Novolin R) Insulin Human Regular 100 units/ml vial SC SCH ×3 (09:41→19:07)
[2016-11-25] MEDS: Saccharomyces Boulardi 250 mg Cap PO SCH ×3 (09:43→18:39)
--- NOTE | 2016-11-25 11:40 | CP.PCM.PN ---
Subjective - Date & Time of Evaluation Date of Evaluation: 11/25/16 Time of Evaluation: 10:15 - Subjective Subjective: 51 year old female patient seen at bedside for follow up of right foot gangrene. Patient is AAOx3 and NAD. Patient continues to refuse surgical intervention on right foot. Patient refused examination today. No other pedal complaints. Objective - Vital Signs/Intake and Output Vital Signs (last 24 hours): Temp Pulse Resp BP Pulse Ox 99.1 F 95 H 100 H 117/72 97 11/25/16 10:27 11/25/16 10:27 11/25/16 10:27 11/25/16 10:27 11/24/16 23:20 Intake and Output: 11/25/16 11/25/16 06:59 18:59 Intake Total 120 Balance 120 - Medications Medications: Current Medications Acetaminophen (Tylenol 325mg Tab) 650 mg PO Q6 PRN PRN Reason: Pain, moderate (4-7) Last Admin: 11/24/16 14:39 Dose: 650 mg Acyclovir (Zovirax 5% Oint) 0 gm EXT Q3H [facility] Last Admin: 11/25/16 06:36 Dose: Not Given Amlodipine Besylate (Norvasc) 10 mg PO DAILY [facility] Last Admin: 11/25/16 09:43 Dose: 10 mg Aspirin (Ecotrin) 81 mg PO DAILY [facility] Last Admin: 11/25/16 09:43 Dose: 81 mg Bacitracin (Bacitracin) 1 ea TOP DAILY [facility] Last Admin: 11/24/16 12:14 Dose: Not Given Calcium Acetate (Phoslo) 2,668 mg PO TIDCC [facility] Last Admin: 11/25/16 09:41 Dose: 2,668 mg Carvedilol (Coreg) 12.5 mg PO BID [facility] Last Admin: 11/25/16 09:55 Dose: Not Given Clotrimazole (Lotrimin 1%) 1 gm TOP BID [facility] Last Admin: 11/24/16 17:10 Dose: Not Given Epoetin Alec (Procrit) 10,000 unit SC MWF [facility] Stop: 11/28/16 23:59 Last Admin: 11/23/16 13:25 Dose: 10,000 unit Ferrous Sulfate (Feosol) 325 mg PO DAILY [facility] Last Admin: 11/25/16 09:43 Dose: 325 mg Heparin Sodium (Porcine) (Heparin) 5,000 units SC Q8 [facility] Last Admin: 11/25/16 06:36 Dose: Not Given Hydromorphone HCl (Dilaudid) 0.5 mg IVP Q3H PRN PRN Reason: Pain, severe (8-10) Last Admin: 11/23/16 23:16 Dose: 0.5 mg Meropenem 500 mg/ Sodium (Chloride) 100 mls @ 100 mls/hr IVPB Q12 [facility] Last Admin: 11/24/16 22:17 Dose: 100 mls/hr Insulin Glargine (Lantus) 40 unit SC [facility] Last Admin: 11/24/16 22:18 Dose: 40 units Insulin Human Regular (Novolin R) 0 unit SC ACHS [facility] PRN Reason: Protocol Last Admin: 11/25/16 09:41 Dose: 5 unit Linezolid (Zyvox) 600 mg PO Q12H [facility] Last Admin: 11/25/16 06:36 Dose: 600 mg Losartan Potassium (Cozaar) 100 mg PO DAILY@1800 [facility] Last Admin: 11/24/16 20:27 Dose: Not Given Ondansetron HCl (Zofran Inj) 4 mg IVP Q4 PRN PRN Reason: Nausea/Vomiting Last Admin: 11/19/16 11:18 Dose: 4 mg Petrolatum (Desitin Original) 0 gm TOP QID [facility] Last Admin: 11/24/16 22:03 Dose: Not Given Rosuvastatin Calcium (Crestor) 2.5 mg PO [facility] Last Admin: 11/24/16 22:17 Dose: 2.5 mg Saccharomyces Boulardii (Florastor) 250 mg PO TID [facility] Last Admin: 11/25/16 09:43 Dose: 250 mg - Labs Labs: 11/24/16 07:00 11/21/16 07:29 PT 11.0 SECONDS (9.7-12.2) 11/07/16 17:26 INR 1.0 11/07/16 17:26 APTT 27 SECONDS (21-34) 10/26/16 18:15 - Constitutional Appears: Well, Non-toxic, No Acute Distress - Extremities Exam Additional comments: Dressing to right foot appears clean, dry, and intact. - Neurological Exam Neurological Exam: Alert, Awake, Oriented x3 - Psychiatric Exam Psychiatric exam: Normal Affect, Normal Mood Assessment and Plan - Assessment and Plan (Free Text) Assessment: 51 year old female patient with right foot gangrene. Plan: Patient seen and evaluated at bedside. Charts, labs, vitals reviewed: leukocytosis yesterday @12.9; febrile yesterday but temperature is trending downwards. Patient refuses dressing changes today. Patient is at risk for BKA. Podiatry will continue to follow while in house.
[2016-11-25] MEDS: Clotrimazole 1% Cream(30 gm) TOP SCH ×2 (12:13→19:07)
[2016-11-25] MEDS: Bacitracin 500 Units/gm Oint Foilpak UD TOP SCH (12:13)
[2016-11-25] MEDS: Zinc Oxide Topical 30 gm Tube TOP SCH ×3 (12:13→18:13)
[2016-11-25] MEDS: Meropenem 500 MG in Sodium Chloride 0.9% 100 ML IVPB SCH ×2 (12:17→22:24)
--- NOTE | 2016-11-25 14:40 | CP.PCM.PN ---
Subjective - Date & Time of Evaluation Date of Evaluation: 11/25/16 Time of Evaluation: 09:00 - Subjective Subjective: seen at bedside for follow up of right foot gangrene. Patient is AAOx3 and NAD. Patient continues to refuse surgical intervention on right foot. Objective - Vital Signs/Intake and Output Vital Signs (last 24 hours): Temp Pulse Resp BP Pulse Ox 99.1 F 95 H 100 H 117/72 97 11/25/16 10:27 11/25/16 10:27 11/25/16 10:27 11/25/16 10:27 11/24/16 23:20 Intake and Output: 11/25/16 11/25/16 06:59 18:59 Intake Total 120 Balance 120 - Medications Medications: Current Medications Acetaminophen (Tylenol 325mg Tab) 650 mg PO Q6 PRN PRN Reason: Pain, moderate (4-7) Last Admin: 11/24/16 14:39 Dose: 650 mg Acyclovir (Zovirax 5% Oint) 0 gm EXT Q3H [facility] Last Admin: 11/25/16 12:15 Dose: Not Given Amlodipine Besylate (Norvasc) 10 mg PO DAILY [facility] Last Admin: 11/25/16 09:43 Dose: 10 mg Aspirin (Ecotrin) 81 mg PO DAILY [facility] Last Admin: 11/25/16 09:43 Dose: 81 mg Bacitracin (Bacitracin) 1 ea TOP DAILY [facility] Last Admin: 11/25/16 12:13 Dose: Not Given Calcium Acetate (Phoslo) 2,668 mg PO TIDCC [facility] Last Admin: 11/25/16 13:54 Dose: Not Given Carvedilol (Coreg) 12.5 mg PO BID [facility] Last Admin: 11/25/16 09:55 Dose: Not Given Clotrimazole (Lotrimin 1%) 1 gm TOP BID [facility] Last Admin: 11/25/16 12:13 Dose: Not Given Epoetin Alec (Procrit) 10,000 unit SC MWF [facility] Stop: 11/28/16 23:59 Last Admin: 11/23/16 13:25 Dose: 10,000 unit Ferrous Sulfate (Feosol) 325 mg PO DAILY [facility] Last Admin: 11/25/16 09:43 Dose: 325 mg Heparin Sodium (Porcine) (Heparin) 5,000 units SC Q8 [facility] Last Admin: 11/25/16 06:36 Dose: Not Given Hydromorphone HCl (Dilaudid) 0.5 mg IVP Q3H PRN PRN Reason: Pain, severe (8-10) Last Admin: 11/23/16 23:16 Dose: 0.5 mg Meropenem 500 mg/ Sodium (Chloride) 100 mls @ 100 mls/hr IVPB Q12 [facility] Last Admin: 11/25/16 12:17 Dose: Not Given Insulin Glargine (Lantus) 40 unit SC [facility] Last Admin: 11/24/16 22:18 Dose: 40 units Insulin Human Regular (Novolin R) 0 unit SC [facility] PRN Reason: Protocol Last Admin: 11/25/16 13:54 Dose: Not Given Linezolid (Zyvox) 600 mg PO Q12H [facility] Last Admin: 11/25/16 06:36 Dose: 600 mg Losartan Potassium (Cozaar) 100 mg PO DAILY@1800 [facility] Last Admin: 11/24/16 20:27 Dose: Not Given Ondansetron HCl (Zofran Inj) 4 mg IVP Q4 PRN PRN Reason: Nausea/Vomiting Last Admin: 11/19/16 11:18 Dose: 4 mg Petrolatum (Desitin Original) 0 gm TOP QID [facility] Last Admin: 11/25/16 12:13 Dose: Not Given Rosuvastatin Calcium (Crestor) 2.5 mg PO [facility] Last Admin: 11/24/16 22:17 Dose: 2.5 mg Saccharomyces Boulardii (Florastor) 250 mg PO TID [facility] Last Admin: 11/25/16 09:43 Dose: 250 mg - Labs Labs: 11/24/16 07:00 11/21/16 07:29 PT 11.0 SECONDS (9.7-12.2) 11/07/16 17:26 INR 1.0 11/07/16 17:26 APTT 27 SECONDS (21-34) 10/26/16 18:15 - Constitutional Appears: Non-toxic - Head Exam Head Exam: NORMOCEPHALIC - Eye Exam Eye Exam: PERRL. absent: Scleral icterus - ENT Exam ENT Exam: Mucous Membranes Dry - Neck Exam Neck Exam: absent: Lymphadenopathy - Respiratory Exam Respiratory Exam: Decreased Breath Sounds, Clear to Ausculation Bilateral - Cardiovascular Exam Cardiovascular Exam: REGULAR RHYTHM, +S1, +S2 - GI/Abdominal Exam GI & Abdominal Exam: Distended, Soft. 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
--- NOTE | 2016-11-25 20:56 | CP.PCM.PN ---
Subjective - Date & Time of Evaluation Date of Evaluation: 11/25/16 Time of Evaluation: 20:56 - Subjective Subjective: Patient sitting up sometimes. Still having pain over the right foot. Low-grade fever noted. Spoke to the patient in details about the overall prognosis. She still not considering to have surgical intervention to the right great toe. Gangrene noted. The discharge is improving. On antibiotic. Will continue the current treatment Objective - Vital Signs/Intake and Output Vital Signs (last 24 hours): Temp Pulse Resp BP Pulse Ox 99.9 F H 88 20 106/67 97 11/25/16 16:00 11/25/16 16:00 11/25/16 16:00 11/25/16 16:00 11/25/16 16:00 - Medications Medications: Current Medications Acetaminophen (Tylenol 325mg Tab) 650 mg PO Q6 PRN PRN Reason: Pain, moderate (4-7) Last Admin: 11/24/16 14:39 Dose: 650 mg Acyclovir (Zovirax 5% Oint) 0 gm EXT Q3H [facility] Last Admin: 11/25/16 12:15 Dose: Not Given Amlodipine Besylate (Norvasc) 10 mg PO DAILY [facility] Last Admin: 11/25/16 09:43 Dose: 10 mg Aspirin (Ecotrin) 81 mg PO DAILY [facility] Last Admin: 11/25/16 09:43 Dose: 81 mg Bacitracin (Bacitracin) 1 ea TOP DAILY [facility] Last Admin: 11/25/16 12:13 Dose: Not Given Calcium Acetate (Phoslo) 2,668 mg PO TIDCC [facility] Last Admin: 11/25/16 18:37 Dose: 2,668 mg Carvedilol (Coreg) 12.5 mg PO BID [facility] Last Admin: 11/25/16 18:43 Dose: Not Given Clotrimazole (Lotrimin 1%) 1 gm TOP BID [facility] Last Admin: 11/25/16 19:07 Dose: Not Given Epoetin Alec (Procrit) 10,000 unit SC MWF [facility] Stop: 11/28/16 23:59 Last Admin: 11/23/16 13:25 Dose: 10,000 unit Ferrous Sulfate (Feosol) 325 mg PO DAILY [facility] Last Admin: 11/25/16 09:43 Dose: 325 mg Heparin Sodium (Porcine) (Heparin) 5,000 units SC Q8 [facility] Last Admin: 11/25/16 16:14 Dose: Not Given Hydromorphone HCl (Dilaudid) 0.5 mg IVP Q3H PRN PRN Reason: Pain, severe (8-10) Last Admin: 11/23/16 23:16 Dose: 0.5 mg Meropenem 500 mg/ Sodium (Chloride) 100 mls @ 100 mls/hr IVPB Q12 [facility] Last Admin: 11/25/16 12:17 Dose: Not Given Insulin Glargine (Lantus) 40 unit SC [facility] Last Admin: 11/24/16 22:18 Dose: 40 units Insulin Human Regular (Novolin R) 0 unit SC ACHS [facility] PRN Reason: Protocol Last Admin: 11/25/16 19:07 Dose: Not Given Linezolid (Zyvox) 600 mg PO Q12H [facility] Last Admin: 11/25/16 18:39 Dose: 600 mg Losartan Potassium (Cozaar) 100 mg PO DAILY@1800 [facility] Last Admin: 11/25/16 18:44 Dose: Not Given Ondansetron HCl (Zofran Inj) 4 mg IVP Q4 PRN PRN Reason: Nausea/Vomiting Last Admin: 11/19/16 11:18 Dose: 4 mg Petrolatum (Desitin Original) 0 gm TOP QID [facility] Last Admin: 11/25/16 16:14 Dose: Not Given Rosuvastatin Calcium (Crestor) 2.5 mg PO [facility] Last Admin: 11/24/16 22:17 Dose: 2.5 mg Saccharomyces Boulardii (Florastor) 250 mg PO TID [facility] Last Admin: 11/25/16 18:39 Dose: 250 mg - Labs Labs: 11/24/16 07:00 11/21/16 07:29 PT 11.0 SECONDS (9.7-12.2) 11/07/16 17:26 INR 1.0 11/07/16 17:26 APTT 27 SECONDS (21-34) 10/26/16 18:15 Assessment and Plan (1) Foot infection Status: Acute (2) Lower limb ischemia Status: Acute (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
[2016-11-25] MEDS: Rosuvastatin Calcium 2.5 mg Tab PO SCH (22:24)
[2016-11-26] MEDS: Zinc Oxide Topical 30 gm Tube TOP SCH ×5 (00:13→21:58)
[2016-11-26] MEDS: (Lantus) Insulin Glargine, Recombinant SC SCH ×2 (00:14→21:58)
[2016-11-26] MEDS: (Novolin R) Insulin Human Regular 100 units/ml vial SC SCH ×5 (00:14→21:52)
[2016-11-26] MEDS: Acyclovir 5% Oint (15 gm) EXT SCH ×8 (00:17→21:59)
[2016-11-26] MEDS: Meropenem 500 MG in Sodium Chloride 0.9% 100 ML IVPB SCH ×2 (10:30→21:57)
[2016-11-26 12:05] LABS: BASO # 0.1 K/uL (0.0-0.2); BASO % 0.4 % (0.0-2.0); EOS # 0.1 K/uL (0.0-0.7); EOS % 0.6 % (0.0-4.0); HEMATOCRIT 24.1 % (34.0-47.0); LYMPH # 1.1 K/uL (1.0-4.3); LYMPH % 7.8 % (20.0-40.0); MEAN CELL VOLUME 91.6 fL (81.0-99.0); MEAN CORPUSCULAR HEMOGLOBIN 29.6 pg (27.0-31.0); MEAN CORPUSCULAR HGB CONC 32.3 g/dL (33.0-37.0); MEAN PLATELET VOLUME 7.9 fL (7.2-11.7); MONO # 0.9 K/uL (0.0-0.8); PLATELET COUNT 417 K/uL (130-400); WHITE BLOOD COUNT 14.5 K/uL (4.8-10.8)
[2016-11-26 12:28] LABS: POTASSIUM 3.8 mmol/L (3.6-5.2)
[2016-11-26 12:30] LABS: BILIRUBIN,TOTAL 0.4 mg/dL (0.2-1.3)
[2016-11-26 12:31] LABS: ALB/GLOB RATIO 0.8 (1.0-2.1); CALCIUM 7.6 mg/dl (8.6-10.4); TOTAL PROTEIN 5.6 g/dL (6.3-8.3)
[2016-11-26] MEDS: Saccharomyces Boulardi 250 mg Cap PO SCH ×3 (12:36→18:06)
[2016-11-26] MEDS: Bacitracin 500 Units/gm Oint Foilpak UD TOP SCH (12:36)
[2016-11-26] MEDS: Clotrimazole 1% Cream(30 gm) TOP SCH ×2 (12:36→18:06)
[2016-11-26] MEDS: EPOETIN ALFA 10,000 UNIT/ML ML SC SCH (12:43)
[2016-11-26 12:46] LABS: NEUTROPHIL 87 % (50-75); TOTAL CELLS COUNTED 100
--- NOTE | 2016-11-26 14:01 | CP.PCM.PN ---
Subjective - Date & Time of Evaluation Date of Evaluation: 11/26/16 Time of Evaluation: 13:59 - Subjective Subjective: Events noted Now without fevers Right foot bandaged- with gangrene Remains on IV ABs PD going well- fluid clear BP controlled with same meds Decision on foot surgery pending Objective - Vital Signs/Intake and Output Vital Signs (last 24 hours): Temp Pulse Resp BP Pulse Ox 99.4 F 92 H 20 131/73 94 L 11/26/16 07:00 11/26/16 07:00 11/26/16 07:00 11/26/16 12:35 11/26/16 07:00 - Medications Medications: Current Medications Acetaminophen (Tylenol 325mg Tab) 650 mg PO Q6 PRN PRN Reason: Pain, moderate (4-7) Last Admin: 11/24/16 14:39 Dose: 650 mg Acyclovir (Zovirax 5% Oint) 0 gm EXT Q3H [facility] Last Admin: 11/26/16 12:25 Dose: Not Given Amlodipine Besylate (Norvasc) 10 mg PO DAILY [facility] Last Admin: 11/26/16 12:35 Dose: 10 mg Aspirin (Ecotrin) 81 mg PO DAILY [facility] Last Admin: 11/26/16 12:35 Dose: 81 mg Bacitracin (Bacitracin) 1 ea TOP DAILY [facility] Last Admin: 11/26/16 12:36 Dose: Not Given Calcium Acetate (Phoslo) 2,668 mg PO TIDCC [facility] Last Admin: 11/26/16 12:35 Dose: 2,668 mg Carvedilol (Coreg) 12.5 mg PO BID [facility] Last Admin: 11/26/16 12:35 Dose: 12.5 mg Clotrimazole (Lotrimin 1%) 1 gm TOP BID [facility] Last Admin: 11/26/16 12:36 Dose: Not Given Epoetin Alec (Procrit) 10,000 unit SC MWF [facility] Stop: 11/28/16 23:59 Last Admin: 11/26/16 12:43 Dose: 10,000 unit Ferrous Sulfate (Feosol) 325 mg PO DAILY [facility] Last Admin: 11/26/16 12:36 Dose: 325 mg Meropenem 500 mg/ Sodium (Chloride) 100 mls @ 100 mls/hr IVPB Q12 [facility] Last Admin: 11/25/16 22:24 Dose: 100 mls/hr Insulin Glargine (Lantus) 40 unit SC [facility] Last Admin: 11/26/16 00:14 Dose: Not Given Insulin Human Regular (Novolin R) 0 unit SC ACHS [facility] PRN Reason: Protocol Last Admin: 11/26/16 09:05 Dose: Not Given Linezolid (Zyvox) 600 mg PO Q12H [facility] Last Admin: 11/26/16 06:31 Dose: 600 mg Losartan Potassium (Cozaar) 100 mg PO DAILY@1800 [facility] Last Admin: 11/25/16 18:44 Dose: Not Given Ondansetron HCl (Zofran Inj) 4 mg IVP Q4 PRN PRN Reason: Nausea/Vomiting Last Admin: 11/19/16 11:18 Dose: 4 mg Petrolatum (Desitin Original) 0 gm TOP QID [facility] Last Admin: 11/26/16 10:15 Dose: Not Given Rosuvastatin Calcium (Crestor) 2.5 mg PO [facility] Last Admin: 11/25/16 22:24 Dose: 2.5 mg Saccharomyces Boulardii (Florastor) 250 mg PO TID [facility] Last Admin: 11/26/16 12:36 Dose: 250 mg - Labs Labs: 11/26/16 11:58 11/26/16 11:58 PT 11.0 SECONDS (9.7-12.2) 11/07/16 17:26 INR 1.0 11/07/16 17:26 APTT 27 SECONDS (21-34) 10/26/16 18:15 - Constitutional Appears: No Acute Distress, Chronically Ill - Head Exam Head Exam: ATRAUMATIC, NORMAL INSPECTION - Eye Exam Eye Exam: EOMI, Normal appearance - Neck Exam Neck Exam: Normal Inspection. absent: Tenderness - Respiratory Exam Respiratory Exam: Clear to Ausculation Bilateral, NORMAL BREATHING PATTERN - Cardiovascular Exam Cardiovascular Exam: REGULAR RHYTHM, +S1 - GI/Abdominal Exam GI & Abdominal Exam: Distended, Soft. absent: Tenderness - Extremities Exam Extremities Exam: Calf Tenderness, Tenderness - Neurological Exam Neurological Exam: Alert, CN II-XII Intact - Skin Skin Exam: Dry, Warm Assessment and Plan (1) Type 2 diabetes mellitus with diabetic nephropathy Status: Acute (2) Chronic anemia Status: Acute (3) Foot infection Status: Acute (4) Lower limb ischemia Status: Acute (5) ESRD on peritoneal dialysis Status: Acute (6) Hypertension Status: Acute - Assessment and Plan (Free Text) Plan: IV ABs Same ESAs Decision on amputation pending Same PD
--- NOTE | 2016-11-26 16:03 | CP.PCM.PN ---
<Cal Hargrove H - Last Filed: 11/26/16 16:04> Subjective - Date & Time of Evaluation Date of Evaluation: 11/26/16 Time of Evaluation: 13:00 - Subjective Subjective: Patient seen bedside regarding right foot gangrene. She is seen sitting in a chair bedside in [facility]. States she does not want the dressing on her foot changed , and would like a second opinion. Also mentions that she does not want surgery at this time. Objective - Vital Signs/Intake and Output Vital Signs (last 24 hours): Temp Pulse Resp BP Pulse Ox 98.2 F 89 29 H 122/61 96 11/26/16 15:00 11/26/16 15:00 11/26/16 15:00 11/26/16 15:00 11/26/16 15:00 Intake and Output: 11/26/16 11/26/16 06:59 18:59 Intake Total 400 Balance 400 - Medications Medications: Current Medications Acetaminophen (Tylenol 325mg Tab) 650 mg PO Q6 PRN PRN Reason: Pain, moderate (4-7) Last Admin: 11/24/16 14:39 Dose: 650 mg Acyclovir (Zovirax 5% Oint) 0 gm EXT Q3H [facility] Last Admin: 11/26/16 15:01 Dose: Not Given Amlodipine Besylate (Norvasc) 10 mg PO DAILY [facility] Last Admin: 11/26/16 14:00 Dose: Not Given Aspirin (Ecotrin) 81 mg PO DAILY [facility] Last Admin: 11/26/16 12:35 Dose: 81 mg Bacitracin (Bacitracin) 1 ea TOP DAILY [facility] Last Admin: 11/26/16 12:36 Dose: Not Given Calcium Acetate (Phoslo) 2,668 mg PO TIDCC [facility] Last Admin: 11/26/16 12:35 Dose: 2,668 mg Carvedilol (Coreg) 12.5 mg PO BID [facility] Last Admin: 11/26/16 14:00 Dose: Not Given Clotrimazole (Lotrimin 1%) 1 gm TOP BID [facility] Last Admin: 11/26/16 12:36 Dose: Not Given Epoetin Alec (Procrit) 10,000 unit SC MWF [facility] Stop: 11/28/16 23:59 Last Admin: 11/26/16 12:43 Dose: 10,000 unit Ferrous Sulfate (Feosol) 325 mg PO DAILY [facility] Last Admin: 11/26/16 12:36 Dose: 325 mg Heparin Sodium (Porcine) (Heparin) 5,000 units SC Q8 [facility] Meropenem 500 mg/ Sodium (Chloride) 100 mls @ 100 mls/hr IVPB Q12 [facility] Last Admin: 11/26/16 10:30 Dose: Not Given Insulin Glargine (Lantus) 40 unit SC [facility] Last Admin: 11/26/16 00:14 Dose: Not Given Insulin Human Regular (Novolin R) 0 unit SC ACHS [facility] PRN Reason: Protocol Last Admin: 11/26/16 13:45 Dose: 3 unit Linezolid (Zyvox) 600 mg PO Q12H [facility] Last Admin: 11/26/16 06:31 Dose: 600 mg Losartan Potassium (Cozaar) 100 mg PO DAILY@1800 [facility] Last Admin: 11/25/16 18:44 Dose: Not Given Ondansetron HCl (Zofran Inj) 4 mg IVP Q4 PRN PRN Reason: Nausea/Vomiting Last Admin: 11/19/16 11:18 Dose: 4 mg Petrolatum (Desitin Original) 0 gm TOP QID [facility] Last Admin: 11/26/16 15:00 Dose: Not Given Rosuvastatin Calcium (Crestor) 2.5 mg PO [facility] Last Admin: 11/25/16 22:24 Dose: 2.5 mg Saccharomyces Boulardii (Florastor) 250 mg PO TID [facility] Last Admin: 11/26/16 15:00 Dose: Not Given - Labs Labs: 11/26/16 11:58 11/26/16 11:58 PT 11.0 SECONDS (9.7-12.2) 11/07/16 17:26 INR 1.0 11/07/16 17:26 APTT 27 SECONDS (21-34) 10/26/16 18:15 - Constitutional Appears: No Acute Distress - Extremities Exam Additional comments: Right foot dressings clean, dry and intact. - Neurological Exam Neurological Exam: Alert, Awake, Oriented x3 Assessment and Plan - Assessment and Plan (Free Text) Assessment: 51 y/o female with right forefoot gangrene, likely infection buy unable to evaluate at this time. Plan: -patient declines dressing change or proper evaluation at this time. -severity of condition discussed with patient, as well as risks and complications of worsening infection including, but not limited to loss of limb , loss of life. -Declines surgical intervention at this time. -will continue to follow while in hospital. <Dre Aldrich - Last Filed: 11/27/16 08:10> Objective - Vital Signs/Intake and Output Vital Signs (last 24 hours): Temp Pulse Resp BP Pulse Ox 99.0 F 86 20 130/76 96 11/27/16 06:01 11/27/16 06:01 11/27/16 06:01 11/27/16 06:01 11/26/16 15:00 - Medications Medications: Current Medications Acetaminophen (Tylenol 325mg Tab) 650 mg PO Q6 PRN PRN Reason: Pain, moderate (4-7) Last Admin: 11/24/16 14:39 Dose: 650 mg Acyclovir (Zovirax 5% Oint) 0 gm EXT Q3H [facility] Last Admin: 11/27/16 06:03 Dose: Not Given Amlodipine Besylate (Norvasc) 10 mg PO DAILY [facility] Last Admin: 11/26/16 14:00 Dose: Not Given Aspirin (Ecotrin) 81 mg PO DAILY [facility] Last Admin: 11/26/16 12:35 Dose: 81 mg Bacitracin (Bacitracin) 1 ea TOP DAILY [facility] Last Admin: 11/26/16 12:36 Dose: Not Given Calcium Acetate (Phoslo) 2,668 mg PO TIDCC [facility] Last Admin: 11/27/16 08:04 Dose: 2,668 mg Carvedilol (Coreg) 12.5 mg PO BID [facility] Last Admin: 11/26/16 18:06 Dose: 12.5 mg Clotrimazole (Lotrimin 1%) 1 gm TOP BID [facility] Last Admin: 11/26/16 18:06 Dose: Not Given Epoetin Alec (Procrit) 10,000 unit SC MWF [facility] Stop: 11/28/16 23:59 Last Admin: 11/26/16 12:43 Dose: 10,000 unit Ferrous Sulfate (Feosol) 325 mg PO DAILY [facility] Last Admin: 11/26/16 12:36 Dose: 325 mg Heparin Sodium (Porcine) (Heparin) 5,000 units SC Q8 [facility] Last Admin: 11/27/16 05:52 Dose: Not Given Meropenem 500 mg/ Sodium (Chloride) 100 mls @ 100 mls/hr IVPB Q12 [facility] Last Admin: 11/26/16 21:57 Dose: 100 mls/hr Insulin Glargine (Lantus) 40 unit SC [facility] Last Admin: 11/26/16 21:58 Dose: 40 units Insulin Human Regular (Novolin R) 0 unit SC ACHS [facility] PRN Reason: Protocol Last Admin: 11/27/16 08:05 Dose: 3 unit Linezolid (Zyvox) 600 mg PO Q12H [facility] Last Admin: 11/27/16 05:52 Dose: 600 mg Losartan Potassium (Cozaar) 100 mg PO DAILY@1800 [facility] Last Admin: 11/26/16 18:06 Dose: Not Given Ondansetron HCl (Zofran Inj) 4 mg IVP Q4 PRN PRN Reason: Nausea/Vomiting Last Admin: 11/19/16 11:18 Dose: 4 mg Petrolatum (Desitin Original) 0 gm TOP QID [facility] Last Admin: 11/26/16 21:58 Dose: 1 applic Rosuvastatin Calcium (Crestor) 2.5 mg PO [facility] Last Admin: 11/26/16 21:57 Dose: 2.5 mg Saccharomyces Boulardii (Florastor) 250 mg PO TID [facility] Last Admin: 11/26/16 18:06 Dose: 250 mg - Labs Labs: 11/26/16 11:58 11/26/16 11:58 PT 11.0 SECONDS (9.7-12.2) 11/07/16 17:26 INR 1.0 11/07/16 17:26 APTT 27 SECONDS (21-34) 10/26/16 18:15 Attending/Attestation - Attestation Notes (Text): 11/27/16 08:09 Pt does not want any sx intervention to right foot. Pt has been explained at length that she is at high risk for limb loss but she does not want anything to be done. Have tried to see pt but she refuses dressing changes. Will sign off again on patient and reconsult as needed.
--- NOTE | 2016-11-26 18:25 | CP.PCM.PN ---
Subjective - Date & Time of Evaluation Date of Evaluation: 11/26/16 Time of Evaluation: 18:24 - Subjective Subjective: Patient today feeling much better. Slightly eating better than yesterday. The blood pressure still on the low side, but better than yesterday. Patient had a bowel movements. The right leg swelling and pain still present. The dressing was changed by the surgery. No chest pain. Denies any nausea and vomiting. Vital signs reviewed Chest good air entry bilaterally regular heart sound, abdominal distention secondary to peritoneal dialysis noted Labs reviewed Hemoglobin is 7.8. Assessment and recommendation: 51-year-old female with end-stage renal disease on peritoneal dialysis. Severe right leg ischemia. Status post a femoropopliteal bypass. Gangrene of the foot. Currently patient is reluctant to have the surgical intervention for the right foot. We'll continue the current treatment. Sepsis, on antibiotic and will follow the patient. Possible discharge plan tomorrow Objective - Vital Signs/Intake and Output Vital Signs (last 24 hours): Temp Pulse Resp BP Pulse Ox 98.2 F 82 29 H 122/61 96 11/26/16 15:00 11/26/16 15:45 11/26/16 15:00 11/26/16 15:00 11/26/16 15:00 Intake and Output: 11/26/16 11/26/16 06:59 18:59 Intake Total 400 Balance 400 - Medications Medications: Current Medications Acetaminophen (Tylenol 325mg Tab) 650 mg PO Q6 PRN PRN Reason: Pain, moderate (4-7) Last Admin: 11/24/16 14:39 Dose: 650 mg Acyclovir (Zovirax 5% Oint) 0 gm EXT Q3H [facility] Last Admin: 11/26/16 15:01 Dose: Not Given Amlodipine Besylate (Norvasc) 10 mg PO DAILY [facility] Last Admin: 11/26/16 14:00 Dose: Not Given Aspirin (Ecotrin) 81 mg PO DAILY [facility] Last Admin: 11/26/16 12:35 Dose: 81 mg Bacitracin (Bacitracin) 1 ea TOP DAILY [facility] Last Admin: 11/26/16 12:36 Dose: Not Given Calcium Acetate (Phoslo) 2,668 mg PO TIDCC [facility] Last Admin: 11/26/16 12:35 Dose: 2,668 mg Carvedilol (Coreg) 12.5 mg PO BID [facility] Last Admin: 11/26/16 14:00 Dose: Not Given Clotrimazole (Lotrimin 1%) 1 gm TOP BID [facility] Last Admin: 11/26/16 12:36 Dose: Not Given Epoetin Alce (Procrit) 10,000 unit SC MWF [facility] Stop: 11/28/16 23:59 Last Admin: 11/26/16 12:43 Dose: 10,000 unit Ferrous Sulfate (Feosol) 325 mg PO DAILY [facility] Last Admin: 11/26/16 12:36 Dose: 325 mg Heparin Sodium (Porcine) (Heparin) 5,000 units SC Q8 [facility] Meropenem 500 mg/ Sodium (Chloride) 100 mls @ 100 mls/hr IVPB Q12 [facility] Last Admin: 11/26/16 10:30 Dose: Not Given Insulin Glargine (Lantus) 40 unit SC [facility] Last Admin: 11/26/16 00:14 Dose: Not Given Insulin Human Regular (Novolin R) 0 unit SC ACHS [facility] PRN Reason: Protocol Last Admin: 11/26/16 13:45 Dose: 3 unit Linezolid (Zyvox) 600 mg PO Q12H [facility] Last Admin: 11/26/16 06:31 Dose: 600 mg Losartan Potassium (Cozaar) 100 mg PO DAILY@1800 [facility] Last Admin: 11/25/16 18:44 Dose: Not Given Ondansetron HCl (Zofran Inj) 4 mg IVP Q4 PRN PRN Reason: Nausea/Vomiting Last Admin: 11/19/16 11:18 Dose: 4 mg Petrolatum (Desitin Original) 0 gm TOP QID [facility] Last Admin: 11/26/16 15:00 Dose: Not Given Rosuvastatin Calcium (Crestor) 2.5 mg PO HS [facility] Last Admin: 11/25/16 22:24 Dose: 2.5 mg Saccharomyces Boulardii (Florastor) 250 mg PO TID [facility] Last Admin: 11/26/16 15:00 Dose: Not Given - Labs Labs: 11/26/16 11:58 11/26/16 11:58 PT 11.0 SECONDS (9.7-12.2) 11/07/16 17:26 INR 1.0 11/07/16 17:26 APTT 27 SECONDS (21-34) 10/26/16 18:15 Assessment and Plan (1) Foot infection Status: Acute (2) Lower limb ischemia Status: Acute (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
[2016-11-26] MEDS: Rosuvastatin Calcium 2.5 mg Tab PO SCH (21:57)
[2016-11-27] MEDS: Acyclovir 5% Oint (15 gm) EXT SCH ×7 (00:57→20:22)
[2016-11-27 06:01] VITALS: RESP 20
[2016-11-27] MEDS: (Novolin R) Insulin Human Regular 100 units/ml vial SC SCH ×4 (08:05→20:22)
[2016-11-27] MEDS: Meropenem 500 MG in Sodium Chloride 0.9% 100 ML IVPB SCH ×3 (09:29→21:48)
[2016-11-27] MEDS: Saccharomyces Boulardi 250 mg Cap PO SCH ×3 (09:34→17:48)
[2016-11-27] MEDS: Bacitracin 500 Units/gm Oint Foilpak UD TOP SCH (09:46)
[2016-11-27] MEDS: Zinc Oxide Topical 30 gm Tube TOP SCH ×3 (09:47→21:59)
[2016-11-27] MEDS: Clotrimazole 1% Cream(30 gm) TOP SCH ×2 (09:47→16:30)
--- NOTE | 2016-11-27 10:44 | CP.PCM.PN ---
Subjective - Date & Time of Evaluation Date of Evaluation: 11/27/16 Time of Evaluation: 10:42 - Subjective Subjective: seen and examined ongoing pd rt foot gangrene-on antibiotics per ID. low na 126 meq/dl c/o chest pain worse with breathing c/o "low blood sugar" checked 96 mg/dl Objective - Vital Signs/Intake and Output Vital Signs (last 24 hours): Temp Pulse Resp BP Pulse Ox 98.9 F 86 20 123/79 95 11/27/16 08:58 11/27/16 08:58 11/27/16 08:58 11/27/16 09:30 11/27/16 08:58 - Medications Medications: Current Medications Acetaminophen (Tylenol 325mg Tab) 650 mg PO Q6 PRN PRN Reason: Pain, moderate (4-7) Last Admin: 11/24/16 14:39 Dose: 650 mg Acyclovir (Zovirax 5% Oint) 0 gm EXT Q3H [facility] Last Admin: 11/27/16 09:47 Dose: Not Given Amlodipine Besylate (Norvasc) 10 mg PO DAILY [facility] Last Admin: 11/27/16 09:32 Dose: Not Given Aspirin (Ecotrin) 81 mg PO DAILY [facility] Last Admin: 11/27/16 09:31 Dose: 81 mg Bacitracin (Bacitracin) 1 ea TOP DAILY [facility] Last Admin: 11/27/16 09:46 Dose: Not Given Calcium Acetate (Phoslo) 2,668 mg PO TIDCC [facility] Last Admin: 11/27/16 08:04 Dose: 2,668 mg Carvedilol (Coreg) 12.5 mg PO BID [facility] Last Admin: 11/27/16 09:30 Dose: 12.5 mg Clotrimazole (Lotrimin 1%) 1 gm TOP BID [facility] Last Admin: 11/27/16 09:47 Dose: Not Given Epoetin Alec (Procrit) 10,000 unit SC MWF [facility] Stop: 11/28/16 23:59 Last Admin: 11/26/16 12:43 Dose: 10,000 unit Ferrous Sulfate (Feosol) 325 mg PO DAILY [facility] Last Admin: 11/27/16 09:31 Dose: 325 mg Heparin Sodium (Porcine) (Heparin) 5,000 units SC Q8 [facility] Last Admin: 11/27/16 05:52 Dose: Not Given Meropenem 500 mg/ Sodium (Chloride) 100 mls @ 100 mls/hr IVPB Q12 [facility] Last Admin: 11/27/16 09:33 Dose: Not Given Insulin Glargine (Lantus) 40 unit SC [facility] Last Admin: 11/26/16 21:58 Dose: 40 units Insulin Human Regular (Novolin R) 0 unit SC ACHS [facility] PRN Reason: Protocol Last Admin: 11/27/16 08:05 Dose: 3 unit Linezolid (Zyvox) 600 mg PO Q12H [facility] Last Admin: 11/27/16 05:52 Dose: 600 mg Losartan Potassium (Cozaar) 100 mg PO DAILY@1800 [facility] Last Admin: 11/26/16 18:06 Dose: Not Given Ondansetron HCl (Zofran Inj) 4 mg IVP Q4 PRN PRN Reason: Nausea/Vomiting Last Admin: 11/19/16 11:18 Dose: 4 mg Petrolatum (Desitin Original) 0 gm TOP QID [facility] Last Admin: 11/27/16 09:47 Dose: Not Given Rosuvastatin Calcium (Crestor) 2.5 mg PO [facility] Last Admin: 11/26/16 21:57 Dose: 2.5 mg Saccharomyces Boulardii (Florastor) 250 mg PO TID [facility] Last Admin: 11/27/16 09:34 Dose: 250 mg - Labs Labs: 11/26/16 11:58 11/26/16 11:58 PT 11.0 SECONDS (9.7-12.2) 11/07/16 17:26 INR 1.0 11/07/16 17:26 APTT 27 SECONDS (21-34) 10/26/16 18:15 - Constitutional Appears: Non-toxic, No Acute Distress, Chronically Ill - Head Exam Head Exam: NORMAL INSPECTION - Eye Exam Eye Exam: Normal appearance - ENT Exam ENT Exam: Mucous Membranes Moist, Normal Exam - Neck Exam Neck Exam: Normal Inspection - Respiratory Exam Respiratory Exam: Clear to Ausculation Bilateral, NORMAL BREATHING PATTERN - Cardiovascular Exam Cardiovascular Exam: REGULAR RHYTHM, RRR - GI/Abdominal Exam GI & Abdominal Exam: Distended, Soft, Hypoactive Bowel Sounds - Extremities Exam Additional comments: rt foot dressing, pt doesnt allow touch Assessment and Plan (1) Chronic anemia Status: Acute (2) Foot infection Status: Acute (3) Lower limb ischemia Status: Acute (4) Type 2 diabetes mellitus with diabetic nephropathy Status: Acute (5) Diabetes mellitus Status: Acute (6) ESRD on peritoneal dialysis Status: Acute - Assessment and Plan (Free Text) Assessment: maintain pd fluid restriction for low na on anabela, check iron stores. consider iv iron. multivitamin
[2016-11-27] MEDS: Rosuvastatin Calcium 2.5 mg Tab PO SCH (21:54)
[2016-11-27] MEDS: (Lantus) Insulin Glargine, Recombinant SC SCH (21:59)
[2016-11-28] MEDS: Acyclovir 5% Oint (15 gm) EXT SCH ×6 (00:23→21:37)
[2016-11-28] MEDS: Multivitamin Vitamin B Complex (Nephro-Vite) Tab PO SCH (08:33)
[2016-11-28] MEDS: (Novolin R) Insulin Human Regular 100 units/ml vial SC SCH ×4 (08:34→21:27)
[2016-11-28] MEDS: Saccharomyces Boulardi 250 mg Cap PO SCH ×3 (09:47→17:56)
[2016-11-28] MEDS: EPOETIN ALFA 10,000 UNIT/ML ML SC SCH (09:47)
[2016-11-28] MEDS: Zinc Oxide Topical 30 gm Tube TOP SCH ×4 (09:54→21:33)
[2016-11-28] MEDS: Meropenem 500 MG in Sodium Chloride 0.9% 100 ML IVPB SCH (09:58)
[2016-11-28] MEDS: Bacitracin 500 Units/gm Oint Foilpak UD TOP SCH (09:58)
[2016-11-28] MEDS: Clotrimazole 1% Cream(30 gm) TOP SCH ×2 (09:58→18:00)
--- NOTE | 2016-11-28 15:29 | CP.PCM.PN ---
Subjective - Date & Time of Evaluation Date of Evaluation: 11/28/16 Time of Evaluation: 15:26 - Subjective Subjective: Refused foot surgery PD going well- fluid clear BP controlled Na-125- trying to fluid restrict Remains on IV ABs- has been afebrile now Objective - Vital Signs/Intake and Output Vital Signs (last 24 hours): Temp Pulse Resp BP Pulse Ox 99.2 F 86 20 137/73 99 11/28/16 07:00 11/28/16 08:00 11/28/16 07:00 11/28/16 09:46 11/28/16 07:00 - Medications Medications: Current Medications Acetaminophen (Tylenol 325mg Tab) 650 mg PO Q6 PRN PRN Reason: Pain, moderate (4-7) Last Admin: 11/24/16 14:39 Dose: 650 mg Acyclovir (Zovirax 5% Oint) 0 gm EXT Q3H [facility] Last Admin: 11/28/16 13:11 Dose: 1 applic Amlodipine Besylate (Norvasc) 10 mg PO DAILY [facility] Last Admin: 11/28/16 09:47 Dose: 10 mg Aspirin (Ecotrin) 81 mg PO DAILY [facility] Last Admin: 11/28/16 09:47 Dose: 81 mg Bacitracin (Bacitracin) 1 ea TOP DAILY [facility] Last Admin: 11/28/16 09:58 Dose: Not Given Calcium Acetate (Phoslo) 2,668 mg PO TIDCC [facility] Last Admin: 11/28/16 13:10 Dose: 2,668 mg Carvedilol (Coreg) 12.5 mg PO BID [facility] Last Admin: 11/28/16 09:46 Dose: 12.5 mg Clotrimazole (Lotrimin 1%) 1 gm TOP BID [facility] Last Admin: 11/28/16 09:58 Dose: Not Given Epoetin Alec (Procrit) 10,000 unit SC MWF [facility] Stop: 11/28/16 23:59 Last Admin: 11/28/16 09:47 Dose: 10,000 unit Ferrous Sulfate (Feosol) 325 mg PO DAILY [facility] Last Admin: 11/28/16 09:47 Dose: 325 mg Heparin Sodium (Porcine) (Heparin) 5,000 units SC Q8 [facility] Last Admin: 11/28/16 13:12 Dose: Not Given Meropenem 500 mg/ Sodium (Chloride) 100 mls @ 100 mls/hr IVPB Q12 [facility] Last Admin: 11/28/16 09:58 Dose: Not Given Insulin Glargine (Lantus) 40 unit SC [facility] Last Admin: 11/27/16 21:59 Dose: 40 units Insulin Human Regular (Novolin R) 0 unit SC ACHS [facility] PRN Reason: Protocol Last Admin: 11/28/16 12:54 Dose: Not Given Linezolid (Zyvox) 600 mg PO Q12H [facility] Last Admin: 11/27/16 17:55 Dose: 600 mg Losartan Potassium (Cozaar) 100 mg PO DAILY@1800 [facility] Last Admin: 11/27/16 17:55 Dose: 100 mg Ondansetron HCl (Zofran Inj) 4 mg IVP Q4 PRN PRN Reason: Nausea/Vomiting Last Admin: 11/19/16 11:18 Dose: 4 mg Petrolatum (Desitin Original) 0 gm TOP QID [facility] Last Admin: 11/28/16 14:57 Dose: 1 applic Rosuvastatin Calcium (Crestor) 2.5 mg PO [facility] Last Admin: 11/27/16 21:54 Dose: 2.5 mg Saccharomyces Boulardii (Florastor) 250 mg PO TID [facility] Last Admin: 11/28/16 14:57 Dose: 250 mg Vitamin B Complex/Vit C/Folic Acid (Nephro-Cony) 1 tab PO 0800 [facility] Last Admin: 11/28/16 08:33 Dose: 1 tab - Labs Labs: 11/26/16 11:58 11/26/16 11:58 PT 11.0 SECONDS (9.7-12.2) 11/07/16 17:26 INR 1.0 11/07/16 17:26 APTT 27 SECONDS (21-34) 10/26/16 18:15 - Head Exam Head Exam: ATRAUMATIC, NORMAL INSPECTION - Eye Exam Eye Exam: EOMI, Normal appearance - Neck Exam Neck Exam: Normal Inspection. absent: Tenderness - Respiratory Exam Respiratory Exam: Clear to Ausculation Bilateral, NORMAL BREATHING PATTERN - Cardiovascular Exam Cardiovascular Exam: REGULAR RHYTHM, +S1 - GI/Abdominal Exam GI & Abdominal Exam: Soft. absent: Tenderness - Extremities Exam Extremities Exam: Pedal Edema, Tenderness - Neurological Exam Neurological Exam: Alert, CN II-XII Intact - Skin Skin Exam: Dry, Warm Assessment and Plan (1) Type 2 diabetes mellitus with diabetic nephropathy Status: Acute (2) Chronic anemia Status: Acute (3) Foot infection Status: Acute (4) Lower limb ischemia Status: Acute (5) ESRD on peritoneal dialysis Status: Acute (6) Hypertension Status: Acute - Assessment and Plan (Free Text) Plan: Repeat chemistries Same PD IV ABs Wound care
[2016-11-28] MEDS: (Lantus) Insulin Glargine, Recombinant SC SCH (21:28)
[2016-11-28] MEDS: Rosuvastatin Calcium 2.5 mg Tab PO SCH (21:32)
--- NOTE | 2016-11-29 01:26 | CP.PCM.PN ---
Subjective - Date & Time of Evaluation Date of Evaluation: 11/29/16 Time of Evaluation: 01:26 - Subjective Subjective: Patient is currently afebrile. She does not have any much pain. She is awaiting for it rehabitation placement. Patient is able to walk. Is in paternal dialysis. Vital signs stable. Clinically stable. 51-year-old female with history of hypertension, diabetes, hypercholesterolemia , peripheral vascular disease right foot gangrene. Status post a right femoropopliteal bypass. Complicated with a localized wound infection, improved. Currently on antibiotic. Spoke to infectious disease, patient will need at least 4-6 weeks on antibiotic , status post a PICC line. She will be transferred to rehabitation once a bed is available. Will follow the patient Objective - Vital Signs/Intake and Output Vital Signs (last 24 hours): Temp Pulse Resp BP Pulse Ox 98.1 F 86 20 145/69 100 11/28/16 15:07 11/28/16 15:07 11/28/16 15:07 11/28/16 17:55 11/28/16 15:07 - Medications Medications: Current Medications Acetaminophen (Tylenol 325mg Tab) 650 mg PO Q6 PRN PRN Reason: Pain, moderate (4-7) Last Admin: 11/24/16 14:39 Dose: 650 mg Acyclovir (Zovirax 5% Oint) 0 gm EXT Q3H [facility] Last Admin: 11/28/16 21:37 Dose: 1 applic Amlodipine Besylate (Norvasc) 10 mg PO DAILY [facility] Last Admin: 11/28/16 09:47 Dose: 10 mg Aspirin (Ecotrin) 81 mg PO DAILY [facility] Last Admin: 11/28/16 09:47 Dose: 81 mg Bacitracin (Bacitracin) 1 ea TOP DAILY [facility] Last Admin: 11/28/16 09:58 Dose: Not Given Calcium Acetate (Phoslo) 2,668 mg PO TIDCC [facility] Last Admin: 11/28/16 17:56 Dose: 2,668 mg Carvedilol (Coreg) 12.5 mg PO BID [facility] Last Admin: 11/28/16 17:55 Dose: 12.5 mg Clotrimazole (Lotrimin 1%) 1 gm TOP BID [facility] Last Admin: 11/28/16 18:00 Dose: Not Given Ferrous Sulfate (Feosol) 325 mg PO DAILY [facility] Last Admin: 11/28/16 09:47 Dose: 325 mg Heparin Sodium (Porcine) (Heparin) 5,000 units SC Q8 [facility] Last Admin: 11/28/16 21:32 Dose: Not Given Insulin Glargine (Lantus) 40 unit SC HS [facility] Last Admin: 11/28/16 21:28 Dose: Not Given Insulin Human Regular (Novolin R) 0 unit SC ACHS [facility] PRN Reason: Protocol Last Admin: 11/28/16 21:27 Dose: Not Given Linezolid (Zyvox) 600 mg PO Q12H [facility] Last Admin: 11/28/16 17:55 Dose: 600 mg Losartan Potassium (Cozaar) 100 mg PO DAILY@1800 [facility] Last Admin: 11/28/16 17:56 Dose: 100 mg Ondansetron HCl (Zofran Inj) 4 mg IVP Q4 PRN PRN Reason: Nausea/Vomiting Last Admin: 11/19/16 11:18 Dose: 4 mg Petrolatum (Desitin Original) 0 gm TOP QID [facility] Last Admin: 11/28/16 21:33 Dose: 1 applic Rosuvastatin Calcium (Crestor) 2.5 mg PO HS [facility] Last Admin: 11/28/16 21:32 Dose: 2.5 mg Saccharomyces Boulardii (Florastor) 250 mg PO TID [facility] Last Admin: 11/28/16 17:56 Dose: 250 mg Vitamin B Complex/Vit C/Folic Acid (Nephro-Cony) 1 tab PO 0800 [facility] Last Admin: 11/28/16 08:33 Dose: 1 tab - Labs Labs: 11/26/16 11:58 11/26/16 11:58 PT 11.0 SECONDS (9.7-12.2) 11/07/16 17:26 INR 1.0 11/07/16 17:26 APTT 27 SECONDS (21-34) 10/26/16 18:15 Assessment and Plan (1) Foot infection Status: Acute (2) Lower limb ischemia Status: Acute (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
--- NOTE | 2016-11-29 01:26 | CP.PCM.PN ---
Subjective - Date & Time of Evaluation Date of Evaluation: 11/28/16 Time of Evaluation: 18:00 - Subjective Subjective: Patient is currently afebrile. She does not have any much pain. She is awaiting for it rehabitation placement. Patient is able to walk. Is in paternal dialysis. Vital signs stable. Clinically stable. 51-year-old female with history of hypertension, diabetes, hypercholesterolemia , peripheral vascular disease right foot gangrene. Status post a right femoropopliteal bypass. Complicated with a localized wound infection, improved. Currently on antibiotic. Spoke to infectious disease, patient will need at least 4-6 weeks on antibiotic , status post a PICC line. She will be transferred to rehablitation once a bed is available. Will follow the patient Objective - Vital Signs/Intake and Output Vital Signs (last 24 hours): Temp Pulse Resp BP Pulse Ox 98.1 F 86 20 145/69 100 11/28/16 15:07 11/28/16 15:07 11/28/16 15:07 11/28/16 17:55 11/28/16 15:07 - Medications Medications: Current Medications Acetaminophen (Tylenol 325mg Tab) 650 mg PO Q6 PRN PRN Reason: Pain, moderate (4-7) Last Admin: 11/24/16 14:39 Dose: 650 mg Acyclovir (Zovirax 5% Oint) 0 gm EXT Q3H [facility] Last Admin: 11/28/16 21:37 Dose: 1 applic Amlodipine Besylate (Norvasc) 10 mg PO DAILY [facility] Last Admin: 11/28/16 09:47 Dose: 10 mg Aspirin (Ecotrin) 81 mg PO DAILY [facility] Last Admin: 11/28/16 09:47 Dose: 81 mg Bacitracin (Bacitracin) 1 ea TOP DAILY [facility] Last Admin: 11/28/16 09:58 Dose: Not Given Calcium Acetate (Phoslo) 2,668 mg PO TIDCC [facility] Last Admin: 11/28/16 17:56 Dose: 2,668 mg Carvedilol (Coreg) 12.5 mg PO BID [facility] Last Admin: 11/28/16 17:55 Dose: 12.5 mg Clotrimazole (Lotrimin 1%) 1 gm TOP BID [facility] Last Admin: 11/28/16 18:00 Dose: Not Given Ferrous Sulfate (Feosol) 325 mg PO DAILY [facility] Last Admin: 11/28/16 09:47 Dose: 325 mg Heparin Sodium (Porcine) (Heparin) 5,000 units SC Q8 [facility] Last Admin: 11/28/16 21:32 Dose: Not Given Insulin Glargine (Lantus) 40 unit SC HS [facility] Last Admin: 11/28/16 21:28 Dose: Not Given Insulin Human Regular (Novolin R) 0 unit SC ACHS [facility] PRN Reason: Protocol Last Admin: 11/28/16 21:27 Dose: Not Given Linezolid (Zyvox) 600 mg PO Q12H [facility] Last Admin: 11/28/16 17:55 Dose: 600 mg Losartan Potassium (Cozaar) 100 mg PO DAILY@1800 [facility] Last Admin: 11/28/16 17:56 Dose: 100 mg Ondansetron HCl (Zofran Inj) 4 mg IVP Q4 PRN PRN Reason: Nausea/Vomiting Last Admin: 11/19/16 11:18 Dose: 4 mg Petrolatum (Desitin Original) 0 gm TOP QID [facility] Last Admin: 11/28/16 21:33 Dose: 1 applic Rosuvastatin Calcium (Crestor) 2.5 mg PO HS [facility] Last Admin: 11/28/16 21:32 Dose: 2.5 mg Saccharomyces Boulardii (Florastor) 250 mg PO TID [facility] Last Admin: 11/28/16 17:56 Dose: 250 mg Vitamin B Complex/Vit C/Folic Acid (Nephro-Cony) 1 tab PO 0800 [facility] Last Admin: 11/28/16 08:33 Dose: 1 tab - Labs Labs: 11/26/16 11:58 11/26/16 11:58 PT 11.0 SECONDS (9.7-12.2) 11/07/16 17:26 INR 1.0 11/07/16 17:26 APTT 27 SECONDS (21-34) 10/26/16 18:15 Assessment and Plan (1) Foot infection Status: Acute (2) Lower limb ischemia Status: Acute (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
[2016-11-29 01:33] VITALS: O2SAT 98
[2016-11-29] MEDS: Acyclovir 5% Oint (15 gm) EXT SCH ×4 (03:50→12:01)
[2016-11-29] MEDS: Multivitamin Vitamin B Complex (Nephro-Vite) Tab PO SCH (08:57)
[2016-11-29] MEDS: (Novolin R) Insulin Human Regular 100 units/ml vial SC SCH ×2 (08:58→12:00)
[2016-11-29 09:14] VITALS: PULSE 88; TEMP 98.5
[2016-11-29] MEDS: Saccharomyces Boulardi 250 mg Cap PO SCH (09:15)
[2016-11-29] MEDS: Zinc Oxide Topical 30 gm Tube TOP SCH (09:15)
[2016-11-29] MEDS: Bacitracin 500 Units/gm Oint Foilpak UD TOP SCH (11:57)
[2016-11-29] MEDS: Clotrimazole 1% Cream(30 gm) TOP SCH (11:59)
[2016-11-29 12:02] VITALS: BP 136/69
[2016-11-29 12:33] LABS: POTASSIUM 3.1 mmol/L (3.6-5.2)
--- NOTE | 2017-01-06 14:20 | DS ---
HISTORY OF PRESENT ILLNESS: The patient is a 51-year-old female with a history of hypertension; end-stage renal disease, on peritoneal dialysis; hypercholesterolemia; history of pneumonia in the past, chronic kidney disease, admitted to the hospital with worsening right leg pain. The patient was seen by diagnostic imaging manager, who noticed that the patient was having increasing leg pain, swelling, and also discoloration of the great toe, so needed further management and hospitalization. Upon arrival to the emergency room, the patient was noted to have suspected impending ganglion of the right great toe. The patient needed further management. The patient was hospitalized, heparin drip started. The patient started on IV antibiotic and continued on peritoneal dialysis, but during the stay in the hospital, the patient was somewhat noncompliant with the heparin drip and was not taking the medications as prescribed, and the patient was taking antihypertensives only at that time. The patient underwent CT angiogram of the abdomen, pelvis, and extremities, noted to have severe peripheral vascular disease, and it was decided that the patient will need further management including intervention for peripheral vascular disease of the right leg. Meanwhile, the patient one day developed chest pain, cardiology evaluation was called. The patient underwent coronary angiogram, noted to have nonspecific arterial disease, and the patient was cleared for the surgical intervention. The patient underwent right-sided Fem-pop bypass. Postoperatively, the patient had developed postoperative infection and sepsis and improved markedly after that with antibiotic and daily dressing and wound care. The patient is now having established ganglion at the right great toe and initially, the patient was reluctant to have further management, and the patient was not willing to have any amputation at this time. So, the patient with antibiotic and a daily wound dressing. Currently, on antibiotic. She will be discharged to the rehabilitation. She will follow up with rehab with IV antibiotic as prescribed by the infectious disease, and she has a PICC line for that. Medications reconciled and the patient will be discharged to the rehab, and she will follow up with the attending at rehab. She will continue to receive the peritoneal dialysis. Rod Lord MD
== END 2016-11-29 14:19 | disposition home or self-care (01) | DRG 550 ==
LOC: C.ER 09:43 → C.9E 11:23 → C.3T 11:45 → C.6T 18:28 → C.9I 11-16 14:05 → C.6T 11-17 11:25
PROVIDERS: ADMIT Internal Medicine; ATTEND Internal Medicine
PROC: 3E1M39Z Irrigation of Peritoneal Cavity using Dialysate, Percutaneous Approach (ICD-10-PCS; 2016-10-31)
PROC: 047C3DZ Dilation of Right Common Iliac Artery with Intraluminal Device, Percutaneous Approach (ICD-10-PCS; 2016-11-05)
PROC: B40D1ZZ Plain Radiography of Aorta and Bilateral Lower Extremity Arteries using Low Osmolar Contrast (ICD-10-PCS; 2016-11-05)
PROC: B2111ZZ Fluoroscopy of Multiple Coronary Arteries using Low Osmolar Contrast (ICD-10-PCS; 2016-11-13)
PROC: B2151ZZ Fluoroscopy of Left Heart using Low Osmolar Contrast (ICD-10-PCS; 2016-11-13)
PROC: 4A023N7 Measurement of Cardiac Sampling and Pressure, Left Heart, Percutaneous Approach (ICD-10-PCS; principal; 2016-11-13 11:00)
PROC: 02HV33Z Insertion of Infusion Device into Superior Vena Cava, Percutaneous Approach (ICD-10-PCS; 2016-11-14)
PROC: 041K0ZL Bypass Right Femoral Artery to Popliteal Artery, Open Approach (ICD-10-PCS; 2016-11-16)
DX: E11.52 Type 2 diabetes mellitus with diabetic peripheral angiopathy with gangrene (principal); A41.9 Sepsis, unspecified organism; I13.2 Hypertensive heart and chronic kidney disease with heart failure and with stage 5 chronic kidney disease, or end stage renal disease; N18.6 End stage renal disease; I27.2 Other secondary pulmonary hypertension; I12.0 Hypertensive chronic kidney disease with stage 5 chronic kidney disease or end stage renal disease; E11.21 Type 2 diabetes mellitus with diabetic nephropathy; E11.319 Type 2 diabetes mellitus with unspecified diabetic retinopathy without macular edema; E87.6 Hypokalemia; I50.9 Heart failure, unspecified; L97.519 Non-pressure chronic ulcer of other part of right foot with unspecified severity; I25.10 Atherosclerotic heart disease of native coronary artery without angina pectoris; E11.22 Type 2 diabetes mellitus with diabetic chronic kidney disease; E11.621 Type 2 diabetes mellitus with foot ulcer; E11.649 Type 2 diabetes mellitus with hypoglycemia without coma; I82.611 Acute embolism and thrombosis of superficial veins of right upper extremity; Z87.891 Personal history of nicotine dependence; Z99.2 Dependence on renal dialysis; Z79.4 Long term (current) use of insulin; E78.00 Pure hypercholesterolemia, unspecified; G89.29 Other chronic pain; I25.2 Old myocardial infarction; Z87.01 Personal history of pneumonia (recurrent); F17.210 Nicotine dependence, cigarettes, uncomplicated; E11.65 Type 2 diabetes mellitus with hyperglycemia; D63.8 Anemia in other chronic diseases classified elsewhere

== ENCOUNTER 2016-12-19 14:45 | Emergency (ER) | payer OTHER ==
[2016-12-19 14:47] VITALS: BMI 28.3
--- NOTE | 2016-12-19 15:42 | C.PDOC ---
Time Seen by Provider: 12/19/16 15:36 Chief Complaint (Nursing): Medical Clearance Past Medical History Vital Signs: Last Vital Signs Temp 98.8 F 12/19/16 14:52 Pulse 96 H 12/19/16 14:52 Resp 18 12/19/16 14:52 BP 129/89 12/19/16 14:52 Pulse Ox 100 12/19/16 14:52 - Medical History PMH: Anemia, Bronchitis, Diabetes, HTN, Hypercholesterolemia, Pneumonia, End Stage Renal Disease (PD), Chronic Kidney Disease Surgical History: - [facility] Procedures BYPASS RIGHT FEMORAL ARTERY TO POPLIT ART, OPEN APPROACH (10/26/16) CREATE CUTANPERITON FIST (12/30/14) DILATION OF R COM ILIAC ART WITH INTRALUM DEV, PERC APPROACH (10/26/16) FLUOROSCOPY OF LEFT HEART USING LOW OSMOLAR CONTRAST (10/26/16) FLUOROSCOPY OF MULT COR ART USING L OSM CONTRAST (10/26/16) HEMODIALYSIS (11/06/14) INSERTION OF INFUSION DEV INTO SUP VENA CAVA, PERC APPROACH (10/26/16) IRRIGATION OF PERITON CAV USING DIALYSATE, PERC APPROACH (10/26/16) LAPAROSCOP LYSIS-PERITONEAL ADHES (12/30/14) MEASURE OF CARDIAC SAMPL & PRESSURE, L HEART, PERC APPROACH (10/26/16) PLAIN RADIOGRAPHY OF AORTA, BI LE ART USING L OSM CONTRAST (10/26/16) VASCULAR CATH IRRIGATION (01/14/15) VENOUS CATHETERIZATION FOR RENAL DIALYSIS (11/06/14) Family History: States: Unknown Family Hx - Social History Hx Tobacco Use: Yes Hx Alcohol Use: No Hx Substance Use: No - Immunization History Hx Tetanus Toxoid Vaccination: Yes Hx Influenza Vaccination: No Hx Pneumococcal Vaccination: No ED Course And Treatment O2 Sat by Pulse Oximetry: 100
--- NOTE | 2016-12-19 15:55 | C.PDOC ---
History Of Present Illness Patient is a 51 y/o female referred to the emergency department by PMD for PICC line evaluation. Patient states PICC line accidentally pulled from her arm 3 days ago during dressing change, and states line has not been used since. PICC line is currently at original position. Patient complaining of pain to that area , but denies any redness, swelling, discharge, or fever. Notes last antibiotics was 3 days ago. REFERRED PMD FOR PICC LINE EVAL. PS PICC LINE ACCIDENTALLY PULLED FROM ARM 3 DAYS AGO DURING DRESSING CHANGE. LINE HAS NOT BEEN USED SINCE. PICC LINE CURRENTLY @ ORIGINAL POSITION. PT CO PAIN TO AREA BUT NO ERYTHEMA, SWELL, DC, FEVER. LAST ABX 3 DAYS AGO. EXAM NAD EXT +PICC LINE RUE W LOCAL BRUISING. NO ERYTHEMA, DC. REMAINDER NEG Time Seen by Provider: 12/19/16 15:36 Chief Complaint (Nursing): Medical Clearance History Per: Patient History/Exam Limitations: no limitations Onset/Duration Of Symptoms: Days (3) Current Symptoms Are (Timing): Still Present Recent travel outside of the [place]: No Additional History Per: Patient Past Medical History Reviewed: Historical Data, Nursing Documentation, Vital Signs Vital Signs: Last Vital Signs Temp 97.9 F 12/19/16 16:34 Pulse 93 H 12/19/16 16:34 Resp 20 12/19/16 16:34 BP 179/82 H 12/19/16 16:34 Pulse Ox 100 12/19/16 17:12 - Medical History PMH: Anemia, Bronchitis, Diabetes, HTN, Hypercholesterolemia, Pneumonia, End Stage Renal Disease (PD), Chronic Kidney Disease Surgical History: - [facility] Procedures BYPASS RIGHT FEMORAL ARTERY TO POPLIT ART, OPEN APPROACH (10/26/16) CREATE CUTANPERITON FIST (12/30/14) DILATION OF R COM ILIAC ART WITH INTRALUM DEV, PERC APPROACH (10/26/16) FLUOROSCOPY OF LEFT HEART USING LOW OSMOLAR CONTRAST (10/26/16) FLUOROSCOPY OF MULT COR ART USING L OSM CONTRAST (10/26/16) HEMODIALYSIS (11/06/14) INSERTION OF INFUSION DEV INTO SUP VENA CAVA, PERC APPROACH (10/26/16) IRRIGATION OF PERITON CAV USING DIALYSATE, PERC APPROACH (10/26/16) LAPAROSCOP LYSIS-PERITONEAL ADHES (12/30/14) MEASURE OF CARDIAC SAMPL & PRESSURE, L HEART, PERC APPROACH (10/26/16) PLAIN RADIOGRAPHY OF AORTA, BI LE ART USING L OSM CONTRAST (10/26/16) VASCULAR CATH IRRIGATION (01/14/15) VENOUS CATHETERIZATION FOR RENAL DIALYSIS (11/06/14) Family History: States: Unknown Family Hx - Social History Hx Tobacco Use: Yes Hx Alcohol Use: No Hx Substance Use: No - Immunization History Hx Tetanus Toxoid Vaccination: Yes Hx Influenza Vaccination: No Hx Pneumococcal Vaccination: No Review Of Systems Except As Marked, All Systems Reviewed And Found Negative. Constitutional: Negative for: Fever, Chills Musculoskeletal: Positive for: Arm Pain (pain to site of PICC line) Skin: Negative for: Rash Neurological: Negative for: Weakness, Numbness Physical Exam - Physical Exam Appears: Non-toxic, No Acute Distress Skin: Normal Color, Warm, Dry Head: Atraumatic, Normacephalic Eye(s): bilateral: Normal Inspection Neck: Normal ROM, Supple Chest: Symmetrical Cardiovascular: Rhythm Regular, No Murmur Respiratory: Normal Breath Sounds, No Rales, No Rhonchi, No Wheezing Extremity: Normal ROM, No Tenderness, Capillary Refill (< 2 sec.), No Deformity , Other (PICC line in right upper extremity with local bruising. No erythema or discharge) Neurological/Psych: Oriented x3, Normal Speech, Normal Cognition ED Course And Treatment O2 Sat by Pulse Oximetry: 100 Pulse Ox Interpretation: Normal Progress Note: CXR ordered and reviewed. Progress - Re-Evaluation Re-evaluation Note: 12/19/16 16:01 D/W DR CATHI Watson AWARE OF ER FINDINGS: STATES TO CXR, LINE FLUSH W NS. IF IN CORRECT POSITION, PT CLEARED FOR DC AND ELECTIVE LINE CHANGE LATER. 12/19/16 16:14 S/P CXR EVAL BY DR WINKLER. PLACEMENT CONFIRMED. 12/19/16 16:23 PICC LINE FLUSHING WO DIFF. D/W DR ROLDAN AWARE OF ER FINDINGS CLEARED FOR DC TO NH Disposition Counseled Patient/Family Regarding: Studies Performed, Diagnosis, Need For Followup - Disposition Referrals: Rod Lord MD [Staff Provider] - Disposition: HOME/ ROUTINE Disposition Time: 16:24 Condition: GOOD Instructions: Peripherally Inserted Central Catheters and Midline Catheters ( GEN) - Clinical Impression Clinical Impression: PICC (peripherally inserted central catheter) flush, PICC (peripherally inserted central catheter) in place - Scribe Statement The provider has reviewed the documentation as recorded by the Scribe Luanne Prieto All medical record entries made by the Hannahibe were at my direction and personally dictated by me. I have reviewed the chart and agree that the record accurately reflects my personal performance of the history, physical exam, medical decision making, and the department course for this patient. I have also personally directed, reviewed, and agree with the discharge instructions and disposition.
--- NOTE | 2016-12-19 16:15 | RAD ---
PROCEDURE: CHEST RADIOGRAPH, 1 VIEW HISTORY: PICC LINE PLACEMENT COMPARISON: CXR 11/22/2016 FINDINGS: LUNGS: Clear. PLEURA: No pneumothorax or pleural fluid seen. CARDIOVASCULAR: Heart size within normal limits. No mediastinal abnormality. OSSEOUS STRUCTURES: No significant abnormalities. VISUALIZED UPPER ABDOMEN: Normal. OTHER FINDINGS: Right arm picc in the SVC. IMPRESSION: Right arm PICC is in the SVC.
[2016-12-19 16:35] VITALS: BP 179/82; PULSE 93; RESP 20; TEMP 97.9
[2016-12-19 17:07] VITALS: O2SAT 100
== END 2016-12-19 17:45 | disposition home or self-care (01) ==
LOC: C.ER 14:45
DX: Z45.2 Encounter for adjustment and management of vascular access device (principal)

== ENCOUNTER 2017-01-11 07:31 | Emergency (ER) | payer OTHER ==
[2017-01-11 07:31] VITALS: BMI 28.3
[2017-01-11 07:35] VITALS: RESP 16; O2SAT 100
--- NOTE | 2017-01-11 08:31 | RAD ---
HISTORY: picc line evaluation COMPARISON: Chest x-ray performed 12/19/16 TECHNIQUE: Chest, one view. FINDINGS: Right-sided PICC extends to the expected location of the SVC. Examination limited by habitus. LUNGS: No focal consolidation. Please note that chest x-ray has limited sensitivity for the detection of pulmonary masses. PLEURA: No significant pleural effusion identified. No definite pneumothorax . CARDIOVASCULAR: Mild cardiomegaly. Atherosclerotic calcification of the aortic knob. OSSEOUS STRUCTURES: Calcific tendinitis, right shoulder. VISUALIZED UPPER ABDOMEN: Unremarkable. OTHER FINDINGS: None. IMPRESSION: Right-sided PICC extends to the expected location of the SVC. Mild cardiomegaly.
--- NOTE | 2017-01-11 10:24 | C.PDOC ---
History Of Present Illness 51 year old female from [facility] with a history of multiple medical problems presents to the emergency department for evaluation of PICC line function. Patient states for the last three days medicine for a foot infection has not been going through PICC line. According to the patient, a nurse from [place] spoke to PICC line nurse Zeenat to arrange evaluation. Nurse Zeenat is not here today and no arrangements were made with interventional radiologist. Patient denies any nausea, vomiting, or other complaints at this time. Time Seen by Provider: 01/11/17 07:49 Chief Complaint (Nursing): Medical Clearance History Per: Patient History/Exam Limitations: no limitations Onset/Duration Of Symptoms: Days (3 days ) Current Symptoms Are (Timing): Still Present Reports Recently: Treated By A Physician ([facility] ) Recent travel outside of the [place]: No Past Medical History Reviewed: Historical Data, Nursing Documentation, Vital Signs Vital Signs: Last Vital Signs Temp 98.2 F 01/11/17 11:00 Pulse 82 01/11/17 11:00 Resp 16 01/11/17 11:00 BP 174/76 H 01/11/17 11:00 Pulse Ox 100 01/11/17 12:02 - Medical History PMH: Anemia, Bronchitis, Diabetes, HTN, Hypercholesterolemia, Pneumonia, End Stage Renal Disease (PD), Chronic Kidney Disease Surgical History: - [facility] Procedures BYPASS RIGHT FEMORAL ARTERY TO POPLIT ART, OPEN APPROACH (10/26/16) CREATE CUTANPERITON FIST (12/30/14) DILATION OF R COM ILIAC ART WITH INTRALUM DEV, PERC APPROACH (10/26/16) FLUOROSCOPY OF LEFT HEART USING LOW OSMOLAR CONTRAST (10/26/16) FLUOROSCOPY OF MULT COR ART USING L OSM CONTRAST (10/26/16) HEMODIALYSIS (11/06/14) INSERTION OF INFUSION DEV INTO SUP VENA CAVA, PERC APPROACH (10/26/16) IRRIGATION OF PERITON CAV USING DIALYSATE, PERC APPROACH (10/26/16) LAPAROSCOP LYSIS-PERITONEAL ADHES (12/30/14) MEASURE OF CARDIAC SAMPL & PRESSURE, L HEART, PERC APPROACH (10/26/16) PLAIN RADIOGRAPHY OF AORTA, BI LE ART USING L OSM CONTRAST (10/26/16) VASCULAR CATH IRRIGATION (01/14/15) VENOUS CATHETERIZATION FOR RENAL DIALYSIS (11/06/14) Family History: States: Unknown Family Hx - Social History Hx Tobacco Use: Yes Hx Alcohol Use: No Hx Substance Use: No - Immunization History Hx Tetanus Toxoid Vaccination: Yes Hx Influenza Vaccination: No Hx Pneumococcal Vaccination: No Review Of Systems Constitutional: Negative for: Fever, Chills Cardiovascular: Negative for: Chest Pain Respiratory: Negative for: Shortness of Breath Gastrointestinal: Negative for: Nausea, Vomiting, Abdominal Pain, Diarrhea Neurological: Negative for: Weakness, Numbness Physical Exam - Physical Exam Appears: Non-toxic, No Acute Distress Skin: Warm, Dry, Other (PICC line in right upper arm ) Head: Atraumatic Eye(s): bilateral: Normal Inspection, EOMI Oral Mucosa: Moist Neck: Supple Chest: Symmetrical Respiratory: Normal Breath Sounds, No Rhonchi, No Wheezing Extremity: Other (Patient's left foot was dressed and clean. ) ED Course And Treatment O2 Sat by Pulse Oximetry: 100 (room air ) Progress Note: PICC Nurse Zeenat was called, but not available today. CXR was ordered. X-ray showed PICC line is in place in the right upper arm. PICC line was flushed with IV fluids and fluids went through PICC line. Patient was concerned when not pushing, nothing would good through. Tried to Piggyback normal saline. PICC is functional and in place. Patient was discharged and returning to [facility]. Disposition - Disposition Disposition: TRANSF TO [facility] Disposition Time: 10:23 Condition: STABLE Additional Instructions: Follow up with PMD as scheduled. Return to ED if feel worse. Instructions: Peripherally Inserted Central Catheters and Midline Catheters ( GEN) Forms: [employer] (Belarusian) - Clinical Impression Clinical Impression: PICC (peripherally inserted central catheter) in place - Scribe Statement The provider has reviewed the documentation as recorded by the Scribe Sara Dow All medical record entries made by the Scribe were at my direction and personally dictated by me. I have reviewed the chart and agree that the record accurately reflects my personal performance of the history, physical exam, medical decision making, and the department course for this patient. I have also personally directed, reviewed, and agree with the discharge instructions and disposition.
[2017-01-11 11:15] VITALS: BP 174/76; PULSE 82; TEMP 98.2
== END 2017-01-11 11:13 ==
LOC: C.ER 07:31
DX: Z45.2 Encounter for adjustment and management of vascular access device (principal)

== ENCOUNTER 2017-02-04 13:00 | Inpatient (IN) | payer OTHER ==
[2017-02-04 13:00] VITALS: BMI 28.3
--- NOTE | 2017-02-04 13:31 | C.PDOC ---
History Of Present Illness 51F c/o right foot pain and gangrene worsening over the last several months. takes percocet at home for pain. Time Seen by Provider: 02/04/17 13:18 Chief Complaint (Nursing): Lower Extremity Problem/Injury Past Medical History Vital Signs: Last Vital Signs Temp 98.7 F 02/04/17 14:45 Pulse 81 02/04/17 14:45 Resp 17 02/04/17 14:45 BP 172/82 H 02/04/17 14:45 Pulse Ox 99 02/04/17 16:18 - Medical History PMH: Anemia, Bronchitis, Diabetes, HTN, Hypercholesterolemia, Pneumonia, End Stage Renal Disease (PD), Chronic Kidney Disease Surgical History: - [facility] Procedures BYPASS RIGHT FEMORAL ARTERY TO POPLIT ART, OPEN APPROACH (10/26/16) CREATE CUTANPERITON FIST (12/30/14) DILATION OF R COM ILIAC ART WITH INTRALUM DEV, PERC APPROACH (10/26/16) FLUOROSCOPY OF LEFT HEART USING LOW OSMOLAR CONTRAST (10/26/16) FLUOROSCOPY OF MULT COR ART USING L OSM CONTRAST (10/26/16) HEMODIALYSIS (11/06/14) INSERTION OF INFUSION DEV INTO SUP VENA CAVA, PERC APPROACH (10/26/16) IRRIGATION OF PERITON CAV USING DIALYSATE, PERC APPROACH (10/26/16) LAPAROSCOP LYSIS-PERITONEAL ADHES (12/30/14) MEASURE OF CARDIAC SAMPL & PRESSURE, L HEART, PERC APPROACH (10/26/16) PLAIN RADIOGRAPHY OF AORTA, BI LE ART USING L OSM CONTRAST (10/26/16) VASCULAR CATH IRRIGATION (01/14/15) VENOUS CATHETERIZATION FOR RENAL DIALYSIS (11/06/14) Family History: States: Other Other Family History: nc - Social History Hx Tobacco Use: Yes Hx Alcohol Use: No Hx Substance Use: No - Immunization History Hx Tetanus Toxoid Vaccination: Yes Hx Influenza Vaccination: No Hx Pneumococcal Vaccination: No Review Of Systems Except As Marked, All Systems Reviewed And Found Negative. Constitutional: Negative for: Fever Cardiovascular: Negative for: Chest Pain Respiratory: Negative for: Shortness of Breath Gastrointestinal: Positive for: Nausea (occasional "from pain meds"). Negative for: Vomiting, Abdominal Pain Physical Exam - Physical Exam Appears: Well, Non-toxic, No Acute Distress Skin: Warm, Dry Head: Atraumatic Eye(s): bilateral: PERRL Oral Mucosa: Moist Cardiovascular: Rhythm Regular Respiratory: No Decreased Breath Sounds, No Accessory Muscle Use Gastrointestinal/Abdominal: Soft, No Tenderness Extremity: Swelling, Other (lower half of right foot is gangrenous. no erythema. no active drainage. ) Pulses: Left Radial: Normal, Right Radial: Normal, Right Dorsalis Pedis: Absent Neurological/Psych: Oriented x3, Other (decreased sensation right foot) ED Course And Treatment - Laboratory Results Result Diagrams: 02/04/17 14:08 02/04/17 14:08 ECG: Interpreted By Me, Viewed By Me ECG Rhythm: Sinus Rhythm Interpretation Of ECG: Left axis deviation. No STEMI. Rate From EC O2 Sat by Pulse Oximetry: 99 - Other Rad Right Foot X-Ray X-Ray: Viewed By Me, Read By Radiologist Interpretation: FINDINGS: BONES: No fracture dislocation or suspicious lytic or blastic change identified. Diffuse osteopenia suggests osteoporosis. Degenerative joint space narrowing and articular cortical sclerosis appreciate throughout the interphalangeal joints as well as the 1st metatarsophalangeal joint where there is also mild hallux valgus deformity. JOINTS: As above. SOFT TISSUES: Extensive vascular calcifications are identified throughout. OTHER FINDINGS: None. IMPRESSION: Osteoarthritis and vascular calcification identified as discussed above. No acute fracture or dislocation appreciated. Disposition - Disposition Disposition: HOSPITALIZED Disposition Time: 14:16 Condition: STABLE - Clinical Impression Clinical Impression: Gangrene of right foot
[2017-02-04 14:13] LABS: BASO # 0.1 K/uL (0.0-0.2); EOS # 0.1 K/uL (0.0-0.7); EOS % 1.1 % (0.0-4.0); HEMATOCRIT 27.1 % (34.0-47.0); LYMPH # 1.9 K/uL (1.0-4.3); LYMPH % 16.7 % (20.0-40.0); MEAN CELL VOLUME 90.2 fL (81.0-99.0); MEAN CORPUSCULAR HEMOGLOBIN 29.5 pg (27.0-31.0); MEAN CORPUSCULAR HGB CONC 32.6 g/dL (33.0-37.0); MEAN PLATELET VOLUME 7.7 fL (7.2-11.7); MONO # 0.8 K/uL (0.0-0.8); MONO % 7.3 % (0.0-10.0); RED CELL DISTRIBUTION WIDTH 16.2 % (11.5-14.5); WHITE BLOOD COUNT 11.1 K/uL (4.8-10.8)
[2017-02-04 14:41] LABS: ALB/GLOB RATIO 0.9 (1.0-2.1); BILIRUBIN,TOTAL 0.5 mg/dL (0.2-1.3); CALCIUM 10.3 mg/dl (8.6-10.4); POTASSIUM 5.3 mmol/L (3.6-5.2); TOTAL PROTEIN 7.6 g/dL (6.3-8.3)
--- NOTE | 2017-02-04 16:36 | RAD ---
PROCEDURE: Right Foot Radiographs. HISTORY: gangrene COMPARISON: None. FINDINGS: BONES: No fracture dislocation or suspicious lytic or blastic change identified. Diffuse osteopenia suggests osteoporosis. Degenerative joint space narrowing and articular cortical sclerosis appreciate throughout the interphalangeal joints as well as the 1st metatarsophalangeal joint where there is also mild hallux valgus deformity. JOINTS: As above SOFT TISSUES: Extensive vascular calcifications are identified throughout. OTHER FINDINGS: None. IMPRESSION: Osteoarthritis and vascular calcification identified as discussed above. No acute fracture or dislocation appreciated.
[2017-02-04] MEDS: Oxycodone/Acetaminophen 5/325 mg Tab PO PRN (21:25)
[2017-02-04] MEDS ORDERED: (Lantus) Insulin Glargine, Recombinant SC SCH (22:00)
[2017-02-04] MEDS: (Novolin R) Insulin Human Regular 100 units/ml vial SC SCH (22:26)
[2017-02-04] MEDS: (Lantus) Insulin Glargine, Recombinant SC SCH (23:13)
--- NOTE | 2017-02-05 06:09 | CP.PCM.CON ---
History of Present Illness - History of Present Illness History of Present Illness: Vascular Surgery 51-year-old female with history of hypertension, end-stage renal disease on peritoneal dialysis, hypercholesterolemia, history of pneumonia in the past and chronic kidney disease came to the emergency room with worsening right leg pain , and the pain over right foot. Pt able to walk but causing more difficulty. Complaining of increasing pain, and occupying the right leg, also showing changing in color of the toes and dorsum of the foot. Pt has extensive history of PVD had R fem-pop bypass graft in November 2016 and R [employer] cath and L com iliac stent on 11/2016. Incision is healing. Denies F/C/N/V/CP/SOB/D/dysuria/discharge on the wound/calf pain/claudication . Past medical history: Anemia, chronic bronchitis, diabetes type 2, hypertension, hypercholesterolemia , history of pneumonia in the past, receiving peritoneal dialysis Surgical history: , currently receiving peritoneal dialysis allergy: No known drug allergy Personal history patient is a lifelong nonsmoker, nonalcoholic Review of Systems - Review of Systems Review of Systems: See HPI Past Patient History - Infectious Disease Hx of Infectious Diseases: None - Past Medical History & Family History Past Medical History?: Yes - Past Social History Smoking Status: Never Smoked - CARDIAC Hx Hypercholesterolemia: Yes Hx Hypertension: Yes Hx Peripheral Vascular Disease: Yes - PULMONARY Hx Bronchitis: Yes Hx Pneumonia: Yes - RENAL Hx Chronic Kidney Disease: Yes Other/Comment: on peritoneal dialysis - ENDOCRINE/METABOLIC Hx Endocrine Disorders: Yes Hx Diabetes Mellitus Type 2: Yes - HEMATOLOGICAL/ONCOLOGICAL Hx Anemia: Yes - INTEGUMENTARY Hx Dermatological Problems: Yes Hx Eczema: Yes - MUSCULOSKELETAL/RHEUMATOLOGICAL Hx Falls: Yes - GENITOURINARY/GYNECOLOGICAL Hx Genitourinary Disorders: Yes (DX: RENAL FAILURE) - PSYCHIATRIC Hx Substance Use: No - SURGICAL HISTORY Hx Surgeries: Yes Hx Section: Yes Hx Eye Surgery: Yes (INSERT "GAS" BUBBLE BOTH EYES) Hx Tubal Ligation: Yes Hx Vascular Access Device: Yes (R SC HD cath) Other/Comment: I&D GROIN; 12/30/14 LAPAROSCOPIC INSERTION PERITONEAL DIALYSIS CATHETER. 01/14/15 REVISION DONE OF PERITIONEAL DIALYSIS CATH. - ANESTHESIA Hx Anesthesia: Yes Hx Anesthesia Reactions: No Hx Malignant Hyperthermia: No Meds Allergies/Adverse Reactions: Allergies Allergy/AdvReac Type Severity Reaction Status Date / Time shrimp Allergy Severe RASH Verified 01/11/17 07:35 - Medications Medications: Current Medications Amlodipine Besylate (Norvasc) 10 mg PO DAILY [facility] Aspirin (Ecotrin) 81 mg PO DAILY [facility] Calcium Acetate (Phoslo) 2,668 mg PO TIDCC [facility] Carvedilol (Coreg) 12.5 mg PO BID [facility] Collagenase (Santyl) 1 gm EXT DAILY [facility] Epoetin Alec (Procrit) 10,000 unit SC QWK [facility] Ferrous Sulfate (Feosol) 325 mg PO DAILY [facility] Insulin Glargine (Lantus) 20 unit SC HS [facility] Last Admin: 02/04/17 23:13 Dose: 20 units Insulin Human Regular (Novolin R) 0 unit SC ACHS [facility] PRN Reason: Protocol Last Admin: 02/04/17 22:26 Dose: Not Given Losartan Potassium (Cozaar) 100 mg PO DAILY@1800 [facility] Oxycodone/Acetaminophen (Percocet 5/325 Mg Tab) 1 tab PO Q4 PRN PRN Reason: Pain, moderate (4-7) Stop: 02/07/17 18:58 Last Admin: 02/04/17 21:25 Dose: 1 tab Rosuvastatin Calcium (Crestor) 10 mg PO [facility] Last Admin: 02/04/17 21:26 Dose: 10 mg Physical Exam - Constitutional Appears: No Acute Distress - Head Exam Head Exam: ATRAUMATIC, NORMAL INSPECTION, NORMOCEPHALIC - Eye Exam Eye Exam: EOMI, Normal appearance, PERRL Pupil Exam: NORMAL ACCOMODATION, PERRL - ENT Exam ENT Exam: Mucous Membranes Moist, Normal Exam - Neck Exam Neck exam: Positive for: Normal Inspection - Respiratory Exam Respiratory Exam: Clear to Auscultation Bilateral, NORMAL BREATHING PATTERN - Cardiovascular Exam Cardiovascular Exam: REGULAR RHYTHM - GI/Abdominal Exam GI & Abdominal Exam: Normal Bowel Sounds - Exam Exam: NORMAL INSPECTION - Extremities Exam Extremities exam: Positive for: tenderness. Negative for: full ROM, joint swelling, normal capillary refill, normal inspection, pedal edema, pedal pulses present Additional comments: R big toe dry gangrene. TTP. dark discoloration. no discharge. - Back Exam Back exam: NORMAL INSPECTION - Neurological Exam Neurological exam: Alert, CN II-XII Intact, Oriented x3, Reflexes Normal - Psychiatric Exam Psychiatric exam: Normal Affect, Normal Mood - Skin Skin Exam: Dry, Intact, Normal Color, Warm Results - Vital Signs Recent Vital Signs: Last Vital Signs Temp 98.3 F 02/05/17 00:00 Pulse 80 02/05/17 00:00 Resp 20 02/05/17 00:00 BP 174/77 H 02/05/17 00:00 Pulse Ox 99 02/04/17 18:41 - Labs Result Diagrams: 02/04/17 14:08 02/04/17 14:08 Labs: Laboratory Results - last 24 hr 02/04/17 21:28 POC Glucose (mg/dL) 205 H Assessment & Plan - Assessment and Plan (Free Text) Assessment: R foot gangrene -May need R TMA v BKA -Podiatry on board -Will KOTA Clark
[2017-02-05] MEDS: (Novolin R) Insulin Human Regular 100 units/ml vial SC SCH ×4 (07:30→22:38)
[2017-02-05 07:54] LABS: POTASSIUM 5.1 mmol/L (3.6-5.2)
[2017-02-05 07:57] LABS: BILIRUBIN,TOTAL 0.5 mg/dL (0.2-1.3); CALCIUM 9.3 mg/dl (8.6-10.4); TOTAL PROTEIN 6.9 g/dL (6.3-8.3)
[2017-02-05 08:25] LABS: BASO # 0.1 K/uL (0.0-0.2); BASO % 0.6 % (0.0-2.0); EOS # 0.2 K/uL (0.0-0.7); EOS % 1.7 % (0.0-4.0); HEMATOCRIT 23.5 % (34.0-47.0); LYMPH # 1.9 K/uL (1.0-4.3); LYMPH % 18.4 % (20.0-40.0); MEAN CELL VOLUME 88.5 fL (81.0-99.0); MEAN CORPUSCULAR HEMOGLOBIN 29.9 pg (27.0-31.0); MEAN CORPUSCULAR HGB CONC 33.8 g/dL (33.0-37.0); MONO # 0.9 K/uL (0.0-0.8); MONO % 8.9 % (0.0-10.0); WHITE BLOOD COUNT 10.5 K/uL (4.8-10.8)
--- NOTE | 2017-02-05 13:01 | CP.PCM.CON ---
History of Present Illness - History of Present Illness History of Present Illness: 51-year-old female with history of hypertension, end-stage renal disease on peritoneal dialysis, severe PVD w/ claudication s/p rt fem pop bypass and left commom iliac stent placement. REcent hospitalization a few months ago for non healing gangrene, pt refused amputation at the time. REturns to the emergency room with worsening right leg pain, and the pain over right foot. Pt able to walk but causing more difficulty. Denies F/C/N/V/CP/SOB/D/dysuria/discharge on the wound/calf pain. On APD, 5 exchanges/day. Denies any abd pain, cloudy fluid. Review of Systems - Review of Systems All systems: reviewed and no additional remarkable complaints except (as per HPI ) Past Patient History - Infectious Disease Hx of Infectious Diseases: None - Past Medical History & Family History Past Medical History?: Yes - Past Social History Smoking Status: Never Smoked - CARDIAC Hx Hypercholesterolemia: Yes Hx Hypertension: Yes Hx Peripheral Vascular Disease: Yes - PULMONARY Hx Bronchitis: Yes Hx Pneumonia: Yes - RENAL Hx Chronic Kidney Disease: Yes Other/Comment: on peritoneal dialysis - ENDOCRINE/METABOLIC Hx Endocrine Disorders: Yes Hx Diabetes Mellitus Type 2: Yes - HEMATOLOGICAL/ONCOLOGICAL Hx Anemia: Yes - INTEGUMENTARY Hx Dermatological Problems: Yes Hx Eczema: Yes - MUSCULOSKELETAL/RHEUMATOLOGICAL Hx Falls: Yes - GENITOURINARY/GYNECOLOGICAL Hx Genitourinary Disorders: Yes (DX: RENAL FAILURE) - PSYCHIATRIC Hx Substance Use: No - SURGICAL HISTORY Hx Surgeries: Yes Hx Section: Yes Hx Eye Surgery: Yes (INSERT "GAS" BUBBLE BOTH EYES) Hx Tubal Ligation: Yes Hx Vascular Access Device: Yes (R SC HD cath) Other/Comment: I&D GROIN; 12/30/14 LAPAROSCOPIC INSERTION PERITONEAL DIALYSIS CATHETER. 01/14/15 REVISION DONE OF PERITIONEAL DIALYSIS CATH. - ANESTHESIA Hx Anesthesia: Yes Hx Anesthesia Reactions: No Hx Malignant Hyperthermia: No Meds Allergies/Adverse Reactions: Allergies Allergy/AdvReac Type Severity Reaction Status Date / Time shrimp Allergy Severe RASH Verified 01/11/17 07:35 - Medications Medications: Current Medications Amlodipine Besylate (Norvasc) 10 mg PO DAILY [facility] Aspirin (Ecotrin) 81 mg PO DAILY [facility] Calcium Acetate (Phoslo) 2,668 mg PO TIDCC [facility] Last Admin: 02/05/17 08:00 Dose: 2,668 mg Carvedilol (Coreg) 12.5 mg PO BID [facility] Collagenase (Santyl) 1 gm EXT DAILY [facility] Epoetin Alec (Procrit) 10,000 unit SC QWK [facility] Ferrous Sulfate (Feosol) 325 mg PO DAILY [facility] Insulin Glargine (Lantus) 20 unit SC HS [facility] Last Admin: 02/04/17 23:13 Dose: 20 units Insulin Human Regular (Novolin R) 0 unit SC ACHS [facility] PRN Reason: Protocol Last Admin: 02/05/17 07:30 Dose: Not Given Losartan Potassium (Cozaar) 100 mg PO DAILY@1800 [facility] Oxycodone/Acetaminophen (Percocet 5/325 Mg Tab) 1 tab PO Q4 PRN PRN Reason: Pain, moderate (4-7) Stop: 02/07/17 18:58 Last Admin: 02/04/17 21:25 Dose: 1 tab Rosuvastatin Calcium (Crestor) 10 mg PO HS [facility] Last Admin: 02/04/17 21:26 Dose: 10 mg Physical Exam - Constitutional Appears: Non-toxic, No Acute Distress, Chronically Ill - Head Exam Head Exam: NORMAL INSPECTION - Eye Exam Eye Exam: Normal appearance - ENT Exam ENT Exam: Mucous Membranes Moist, Normal Exam - Neck Exam Neck exam: Positive for: Normal Inspection - Respiratory Exam Respiratory Exam: Clear to Auscultation Bilateral, NORMAL BREATHING PATTERN - Cardiovascular Exam Cardiovascular Exam: REGULAR RHYTHM, RRR - GI/Abdominal Exam GI & Abdominal Exam: Diminished Bowel Sounds, Distended, Soft - Extremities Exam Additional comments: rt ext w/ chronic skin changes. warm to touch Results - Vital Signs Recent Vital Signs: Last Vital Signs Temp 97.8 F 02/05/17 07:33 Pulse 77 02/05/17 07:33 Resp 18 02/05/17 07:33 BP 163/77 H 02/05/17 07:33 Pulse Ox 98 02/05/17 07:33 - Labs Result Diagrams: 02/05/17 07:26 02/05/17 07:26 Labs: Laboratory Results - last 24 hr 02/04/17 02/05/17 02/05/17 21:28 06:03 07:26 WBC 10.5 RBC 2.66 L Hgb 7.9 L Hct 23.5 L MCV 88.5 MCH 29.9 MCHC 33.8 RDW 16.0 H Plt Count 232 MPV 8.0 Neut % (Auto) 70.4 Lymph % (Auto) 18.4 L Ponce % (Auto) 8.9 Eos % (Auto) 1.7 Baso % (Auto) 0.6 Neut # 7.4 H Lymph # 1.9 Ponce # 0.9 H Eos # 0.2 Baso # 0.1 Sodium Potassium Chloride Carbon Dioxide Anion Gap BUN Creatinine Est GFR ( Amer) Est GFR (Non-Af Amer) POC Glucose (mg/dL) 205 H 117 H Random Glucose Calcium Total Bilirubin AST ALT Alkaline Phosphatase Total Protein Albumin Globulin Albumin/Globulin Ratio 02/05/17 02/05/17 07:26 11:37 WBC RBC Hgb Hct MCV MCH MCHC RDW Plt Count MPV Neut % (Auto) Lymph % (Auto) Ponce % (Auto) Eos % (Auto) Baso % (Auto) Neut # Lymph # Ponce # Eos # Baso # Sodium 139 Potassium 5.1 Chloride 95 L Carbon Dioxide 25 Anion Gap 24 H BUN 59 H Creatinine 12.5 H* Est GFR ( Amer) 4 Est GFR (Non-Af Amer) 3 POC Glucose (mg/dL) 153 H Random Glucose 110 H Calcium 9.3 Total Bilirubin 0.5 AST 13 L D ALT 23 Alkaline Phosphatase 86 Total Protein 6.9 Albumin 3.5 Globulin 3.4 Albumin/Globulin Ratio 1.0 Assessment & Plan (1) Gangrene of right foot Status: Acute (2) Anemia Status: Acute (3) Diabetes mellitus Status: Acute (4) ESRD on peritoneal dialysis Status: Acute (5) Hyperkalemia Status: Acute (6) Hypertension Status: Acute - Assessment and Plan (Free Text) Assessment: PD consent obtained, orders written. LEELA REsume home antihypertensives, monitor needs strict sugar control vascular surgery management
--- NOTE | 2017-02-05 13:19 | CP.PCM.CON ---
History of Present Illness - History of Present Illness History of Present Illness: 51F c/o right foot pain and gangrene worsening over the last several months. takes percocet at home for pain. Pt has extensive history of PVD had R fem-pop bypass graft in November 2016 and R QUALITY TECH cath and L com iliac stent on 11/2016. Incision is healing. Denies F/C/N/V/CP/SOB/D/dysuria/discharge on the wound/calf pain/claudication . EMPIRIC IV RX ORDERED - Medical History PMH: Anemia, Bronchitis, Diabetes, HTN, Hypercholesterolemia, Pneumonia, End Stage Renal Disease (PD), Chronic Kidney Disease Surgical History: - [facility] Procedures BYPASS RIGHT FEMORAL ARTERY TO POPLIT ART, OPEN APPROACH (10/26/16) CREATE CUTANPERITON FIST (12/30/14) DILATION OF R COM ILIAC ART WITH INTRALUM DEV, PERC APPROACH (10/26/16) FLUOROSCOPY OF LEFT HEART USING LOW OSMOLAR CONTRAST (10/26/16) FLUOROSCOPY OF MULT COR ART USING L OSM CONTRAST (10/26/16) HEMODIALYSIS (11/06/14) INSERTION OF INFUSION DEV INTO SUP VENA CAVA, PERC APPROACH (10/26/16) IRRIGATION OF PERITON CAV USING DIALYSATE, PERC APPROACH (10/26/16) LAPAROSCOP LYSIS-PERITONEAL ADHES (12/30/14) MEASURE OF CARDIAC SAMPL & PRESSURE, L HEART, PERC APPROACH (10/26/16) PLAIN RADIOGRAPHY OF AORTA, BI LE ART USING L OSM CONTRAST (10/26/16) VASCULAR CATH IRRIGATION (01/14/15) VENOUS CATHETERIZATION FOR RENAL DIALYSIS (11/06/14) Review of Systems - Constitutional Constitutional: As Per HPI - EENT Eyes: absent: As Per HPI, Blind Spots, Blurred Vision, Change in Vision, Decreased Night Vision, Diplopia, Discharge, Dry Eye, Exophthalmos, Floaters, Irritation, Itchy Eyes, Loss of Peripheral Vision, Pain, Photophobia, Requires Corrective Lenses, Sees Flashes, Spots in Vision, Tunnel Vision, Other Visual Disturbances, Loss of Vision, Other Ears: absent: As Per HPI, Decreased Hearing, Ear Discharge, Ear Pain, Tinnitus, Abnormal Hearing, Disequilibrium, Dizziness, Other Nose/Mouth/Throat: absent: As Per HPI, Epistaxis, Nasal Congestion, Nasal Discharge, Nasal Obstruction, Nasal Trauma, Nose Pain, Post Nasal Drip, Sinus Pain, Sinus Pressure, Bleeding Gums, Change in Voice, Dental Pain, Dry Mouth, Dysphagia, Halitosis, Hoarsness, Lip Swelling, Mouth Lesions, Mouth Pain, Odynophagia, Sore Throat, Throat Swelling, Tongue Swelling, Facial Pain, Neck Pain, Neck Mass, Other - Breasts Breasts: absent: As Per HPI, Change in Shape, Mass, Pain, Nipple Discharge, Nipple Inversion, Skin Changes, Swelling, Other - Cardiovascular Cardiovascular: As Per HPI - Respiratory Respiratory: absent: As Per HPI, Cough, Dyspnea, Hemoptysis, Dyspnea on Exertion , Wheezing, Snoring, Stridor, Pain on Inspiration, Chest Congestion, Excessive Mucous Production, Change in Mucous Color, Pain with Coughing, Other - Gastrointestinal Gastrointestinal: absent: As Per HPI, Abdominal Pain, Belching, Bloating, Change in Bowel Habits, Change in Stool Character, Coffee Ground Emesis, Constipation, Cramping, Diarrhea, Dyspepsia, Dysphagia, Early Satiety, Excessive Flatus, Fecal Incontinence, Heartburn, Hematemesis, Hematochezia, Loose Stools, Melena, Nausea, Odynophagia, Temesmus, Vomiting, Other - Genitourinary Genitourinary: absent: As Per HPI, Change in Urinary Stream, Difficulty Urinating, Dysuria, Flank Pain, Hematuria, Pyuria, Nocturia, Urinary Incontinence, Urinary Frequency, Urinary Hesitance, Urinary Urgency, Voiding Freq/Small Amts, Freq UTI, Hx Renal/Bladder Calculi, Hx /Renal Surgery, Bladder Distension, Other - Reproductive: Female Reproductive:Female: absent: As Per HPI, Amenorrhea, Amenorrhea/ Control, Currently Menstual, Cycle <21 Days, Cycle >35 Days, Cycle Variable, Menses 1-7 Days, Menses >/= 8 Days, Menses Variable, Cycle > 4 Weeks Between, No Menses for 6 Months, Heavy Menses, Light Menses, Normal Menses, Spotting Between Cycles , S/P Hysterectomy, Menopausal, Post Menopausal, Premenarche, Abnormal Vaginal Bleeding, Dysmenorrhea, Dyspareunia, Genital Lesions, Genital Pruritis, Pelvic Pain, Prolapse Symptoms, Sexual Dysfunction, Vaginal Discharge, Vaginal Dryness , Vaginal Odor, Vaginal Pruritis, Other - Menstruation Menstruation: absent: As Per HPI, Amenorrhea, Amenorrhea/ Control, Currently Menstual, Cycle <21 Days, Cycle >35 Days, Cycle Variable, Menses 1-7 Days, Menses >/= 8 Days, Menses Variable, Cycle > 4 Weeks Between, No Menses for 6 Months, Heavy Menses, Light Menses, Normal Menses, Spotting Between Cycles , S/P Hysterectomy, Menopausal, Post Menopausal, Premenarche, Abnormal Vaginal Bleeding, Dysmenorrhea, Other - Musculoskeletal Musculoskeletal: As Per HPI - Integumentary Integumentary: As Per HPI, Skin Pain, Wounds - Neurological Neurological: As Per HPI - Psychiatric Psychiatric: absent: As Per HPI, Abnormal Sleep Pattern, Anhedonia, Anxiety, Auditory Hallucinations, Behavioral Changes, Change in Appetite, Change in Libido, Confusion, Depression, Difficulty Concentrating, Hallucinations, Homicidal Ideation, Hopelessness, Irritability, Memory Loss, Mood Swings, Panic Attacks, Paranoia, Suicidal Ideation, Visual Hallucinations, Tactile Hallucinations, Other - Endocrine Endocrine: As Per HPI - Hematologic/Lymphatic Hematologic: absent: As Per HPI, Easy Bleeding, Easy Bruising, Lymphadenopathy, Other Past Patient History - Infectious Disease Hx of Infectious Diseases: None - Past Medical History & Family History Past Medical History?: Yes - Past Social History Smoking Status: Never Smoked - CARDIAC Hx Hypercholesterolemia: Yes Hx Hypertension: Yes Hx Peripheral Vascular Disease: Yes - PULMONARY Hx Bronchitis: Yes Hx Pneumonia: Yes - RENAL Hx Chronic Kidney Disease: Yes Other/Comment: on peritoneal dialysis - ENDOCRINE/METABOLIC Hx Endocrine Disorders: Yes Hx Diabetes Mellitus Type 2: Yes - HEMATOLOGICAL/ONCOLOGICAL Hx Anemia: Yes - INTEGUMENTARY Hx Dermatological Problems: Yes Hx Eczema: Yes - MUSCULOSKELETAL/RHEUMATOLOGICAL Hx Falls: Yes - GENITOURINARY/GYNECOLOGICAL Hx Genitourinary Disorders: Yes (DX: RENAL FAILURE) - PSYCHIATRIC Hx Substance Use: No - SURGICAL HISTORY Hx Surgeries: Yes Hx Section: Yes Hx Eye Surgery: Yes (INSERT "GAS" BUBBLE BOTH EYES) Hx Tubal Ligation: Yes Hx Vascular Access Device: Yes (R SC HD cath) Other/Comment: I&D GROIN; 12/30/14 LAPAROSCOPIC INSERTION PERITONEAL DIALYSIS CATHETER. 01/14/15 REVISION DONE OF PERITIONEAL DIALYSIS CATH. - ANESTHESIA Hx Anesthesia: Yes Hx Anesthesia Reactions: No Hx Malignant Hyperthermia: No Meds Allergies/Adverse Reactions: Allergies Allergy/AdvReac Type Severity Reaction Status Date / Time shrimp Allergy Severe RASH Verified 01/11/17 07:35 - Medications Medications: Current Medications Amlodipine Besylate (Norvasc) 10 mg PO DAILY [facility] Last Admin: 02/05/17 13:01 Dose: 10 mg Aspirin (Ecotrin) 81 mg PO DAILY [facility] Last Admin: 02/05/17 13:03 Dose: 81 mg Calcium Acetate (Phoslo) 2,668 mg PO TIDCC [facility] Last Admin: 02/05/17 08:00 Dose: 2,668 mg Carvedilol (Coreg) 12.5 mg PO BID [facility] Last Admin: 02/05/17 13:02 Dose: 12.5 mg Collagenase (Santyl) 1 gm EXT DAILY [facility] Epoetin Alec (Procrit) 10,000 unit SC QWK [facility] Ferrous Sulfate (Feosol) 325 mg PO DAILY [facility] Last Admin: 02/05/17 13:15 Dose: Not Given Insulin Glargine (Lantus) 20 unit SC [facility] Last Admin: 02/04/17 23:13 Dose: 20 units Insulin Human Regular (Novolin R) 0 unit SC [facility] PRN Reason: Protocol Last Admin: 02/05/17 13:00 Dose: Not Given Losartan Potassium (Cozaar) 100 mg PO DAILY@1800 [facility] Oxycodone/Acetaminophen (Percocet 5/325 Mg Tab) 1 tab PO Q4 PRN PRN Reason: Pain, moderate (4-7) Stop: 02/07/17 18:58 Last Admin: 02/04/17 21:25 Dose: 1 tab Rosuvastatin Calcium (Crestor) 10 mg PO [facility] Last Admin: 02/04/17 21:26 Dose: 10 mg Physical Exam - Constitutional Appears: Non-toxic, Chronically Ill - Head Exam Head Exam: NORMOCEPHALIC - Eye Exam Eye Exam: PERRL - ENT Exam ENT Exam: Mucous Membranes Dry, Normal External Ear Exam - Neck Exam Neck exam: Negative for: Lymphadenopathy - Respiratory Exam Respiratory Exam: Decreased Breath Sounds - Cardiovascular Exam Cardiovascular Exam: REGULAR RHYTHM - GI/Abdominal Exam GI & Abdominal Exam: Diminished Bowel Sounds, Soft. absent: Tenderness - Rectal Exam Rectal Exam: Deferred - Exam Exam: NORMAL INSPECTION - Extremities Exam Extremities exam: Positive for: pedal edema, tenderness. Negative for: pedal pulses present - Back Exam Back exam: absent: CVA tenderness (L), CVA tenderness (R) - Neurological Exam Neurological exam: Alert, CN II-XII Intact, Oriented x3, Reflexes Normal - Psychiatric Exam Psychiatric exam: Normal Mood - Skin Skin Exam: Dry Results - Vital Signs Recent Vital Signs: Last Vital Signs Temp 97.8 F 02/05/17 07:33 Pulse 77 02/05/17 07:33 Resp 18 02/05/17 07:33 BP 179/82 H 02/05/17 13:02 Pulse Ox 98 02/05/17 07:33 - Labs Result Diagrams: 02/05/17 07:26 02/05/17 07:26 Labs: Laboratory Results - last 24 hr 02/04/17 02/05/17 02/05/17 21:28 06:03 07:26 WBC 10.5 RBC 2.66 L Hgb 7.9 L Hct 23.5 L MCV 88.5 MCH 29.9 MCHC 33.8 RDW 16.0 H Plt Count 232 MPV 8.0 Neut % (Auto) 70.4 Lymph % (Auto) 18.4 L Jenkins % (Auto) 8.9 Eos % (Auto) 1.7 Baso % (Auto) 0.6 Neut # 7.4 H Lymph # 1.9 Jenkins # 0.9 H Eos # 0.2 Baso # 0.1 Sodium Potassium Chloride Carbon Dioxide Anion Gap BUN Creatinine Est GFR ( Amer) Est GFR (Non-Af Amer) POC Glucose (mg/dL) 205 H 117 H Random Glucose Calcium Total Bilirubin AST ALT Alkaline Phosphatase Total Protein Albumin Globulin Albumin/Globulin Ratio 02/05/17 02/05/17 07:26 11:37 WBC RBC Hgb Hct MCV MCH MCHC RDW Plt Count MPV Neut % (Auto) Lymph % (Auto) Jenkins % (Auto) Eos % (Auto) Baso % (Auto) Neut # Lymph # Jenkins # Eos # Baso # Sodium 139 Potassium 5.1 Chloride 95 L Carbon Dioxide 25 Anion Gap 24 H BUN 59 H Creatinine 12.5 H* Est GFR ( Amer) 4 Est GFR (Non-Af Amer) 3 POC Glucose (mg/dL) 153 H Random Glucose 110 H Calcium 9.3 Total Bilirubin 0.5 AST 13 L D ALT 23 Alkaline Phosphatase 86 Total Protein 6.9 Albumin 3.5 Globulin 3.4 Albumin/Globulin Ratio 1.0 Assessment & Plan (1) Gangrene of right foot Status: Acute (2) Chronic anemia Status: Acute (3) Chronic congestive heart failure Status: Acute (4) Diabetes mellitus Status: Acute (5) ESRD on peritoneal dialysis Status: Acute - Assessment and Plan (Free Text) Assessment: Pt has extensive history of PVD had R fem-pop bypass graft in November 2016 and R QUALITY TECH cath and L com iliac stent on 11/2016. ADMITTED WITH GANGRENE \\CONT IV RX VASCULAR EVAL PROGNOSIS GUAREDED
[2017-02-05] MEDS: Collagenase 250 Units/gm Ointment(30 gm) EXT SCH (13:26)
[2017-02-05] MEDS: Oxycodone/Acetaminophen 5/325 mg Tab PO PRN (17:58)
--- NOTE | 2017-02-05 18:04 | CP.PCM.HP ---
History of Present Illness - History of Present Illness History of Present Illness: Chief complaint: Right leg pain History present illness: 51-year-old female with history of hypertension, end-stage renal disease on peritoneal dialysis, high cholesterol, diabetes, history of pneumonia, renal insufficiency, peripheral vascular disease, ischemic right leg, and the complicated with the sepsis. During the last hospitalization patient underwent patient had a right fem-pop bypass November 2016 and right LACING CUTTER cath and left common iliac stent November 2016. But patient currently developed established gangrene of the fore foot. Patient still continues to have a pain, seen the banking officer as an outpatient. After multiple discussion patient agreed to have the medication, hospitalized for that reason. Also she started having increasing pain, and gradually worsening. She is feeling otherwise much better. Her peritoneal dialysis seems to be doing well, her blood sugar is controlled and blood pressure is controlled. She's taking pain medications as needed for pain. No diarrhea noted Past medical history: Diabetes, hypertension, hypercholesterolemia, anemia, renal insufficiency, pituitary dialysis, peripheral vascular disease Surgical history: , currently receiving peritoneal dialysis allergy: No known drug allergy Personal history patient is a lifelong nonsmoker, nonalcoholic Review of system: Patient does not have any headache. She is feeling more optimistic this time. Pain in the right leg noted. Receiving peritoneal dialysis. No chest pain or shortness of breath On examination: Vital signs stable, chest good air entry bilaterally regular heart sound nontender abdomen edema in the legs noted. Right leg healing wound noted, gangrene of the foot noted Labs reviewed Nonspecific. Assessment and recommendation: 51-year-old female with history of hypertension, end-stage renal disease on peritoneal dialysis, high cholesterol, diabetes, history of pneumonia, renal insufficiency, peripheral vascular disease, ischemic right leg, and the complicated with the sepsis. Right foot gangrene. Discussed with the patient. Patient possibly needed intervention including amputation. Patient has a right arm PICC line. Which probably needs to be removed and replaced. On dialysis. Spoke to the patient in details. Spoke to the [place] surgeon. Also I spoke to the banking officer as an outpatient. Clinically patient is otherwise stable. Arterial Doppler and will follow the patient Present on Admission - Present on Admission Any Indicators Present on Admission: No History of DVT/PE: No History of Uncontrolled Diabetes: No Urinary Catheter: No Decubitus Ulcer Present: No Past Patient History - Infectious Disease Hx of Infectious Diseases: None - Past Medical History & Family History Past Medical History?: Yes - Past Social History Smoking Status: Never Smoked - CARDIAC Hx Hypercholesterolemia: Yes Hx Hypertension: Yes Hx Peripheral Vascular Disease: Yes - PULMONARY Hx Bronchitis: Yes Hx Pneumonia: Yes - RENAL Hx Chronic Kidney Disease: Yes Other/Comment: on peritoneal dialysis - ENDOCRINE/METABOLIC Hx Endocrine Disorders: Yes Hx Diabetes Mellitus Type 2: Yes - HEMATOLOGICAL/ONCOLOGICAL Hx Anemia: Yes - INTEGUMENTARY Hx Dermatological Problems: Yes Hx Eczema: Yes - MUSCULOSKELETAL/RHEUMATOLOGICAL Hx Falls: Yes - GENITOURINARY/GYNECOLOGICAL Hx Genitourinary Disorders: Yes (DX: RENAL FAILURE) - PSYCHIATRIC Hx Substance Use: No - SURGICAL HISTORY Hx Surgeries: Yes Hx Section: Yes Hx Eye Surgery: Yes (INSERT "GAS" BUBBLE BOTH EYES) Hx Tubal Ligation: Yes Hx Vascular Access Device: Yes (R SC HD cath) Other/Comment: I&D GROIN; 12/30/14 LAPAROSCOPIC INSERTION PERITONEAL DIALYSIS CATHETER. 01/14/15 REVISION DONE OF PERITIONEAL DIALYSIS CATH. - ANESTHESIA Hx Anesthesia: Yes Hx Anesthesia Reactions: No Hx Malignant Hyperthermia: No Meds Allergies/Adverse Reactions: Allergies Allergy/AdvReac Type Severity Reaction Status Date / Time shrimp Allergy Severe RASH Verified 01/11/17 07:35 Results - Vital Signs Recent Vital Signs: Last Vital Signs Temp 97.8 F 02/05/17 17:05 Pulse 79 02/05/17 17:05 Resp 20 02/05/17 17:05 BP 123/67 02/05/17 17:56 Pulse Ox 100 02/05/17 17:05 - Labs Result Diagrams: 02/05/17 07:26 02/05/17 07:26 Labs: Laboratory Results - last 24 hr 02/04/17 02/05/17 02/05/17 21:28 06:03 07:26 WBC 10.5 RBC 2.66 L Hgb 7.9 L Hct 23.5 L MCV 88.5 MCH 29.9 MCHC 33.8 RDW 16.0 H Plt Count 232 MPV 8.0 Neut % (Auto) 70.4 Lymph % (Auto) 18.4 L Edmunds % (Auto) 8.9 Eos % (Auto) 1.7 Baso % (Auto) 0.6 Neut # 7.4 H Lymph # 1.9 Edmunds # 0.9 H Eos # 0.2 Baso # 0.1 Sodium Potassium Chloride Carbon Dioxide Anion Gap BUN Creatinine Est GFR ( Amer) Est GFR (Non-Af Amer) POC Glucose (mg/dL) 205 H 117 H Random Glucose Calcium Total Bilirubin AST ALT Alkaline Phosphatase Total Protein Albumin Globulin Albumin/Globulin Ratio 02/05/17 02/05/17 02/05/17 07:26 11:37 16:13 WBC RBC Hgb Hct MCV MCH MCHC RDW Plt Count MPV Neut % (Auto) Lymph % (Auto) Edmunds % (Auto) Eos % (Auto) Baso % (Auto) Neut # Lymph # Edmunds # Eos # Baso # Sodium 139 Potassium 5.1 Chloride 95 L Carbon Dioxide 25 Anion Gap 24 H BUN 59 H Creatinine 12.5 H* Est GFR ( Amer) 4 Est GFR (Non-Af Amer) 3 POC Glucose (mg/dL) 153 H 130 H Random Glucose 110 H Calcium 9.3 Total Bilirubin 0.5 AST 13 L D ALT 23 Alkaline Phosphatase 86 Total Protein 6.9 Albumin 3.5 Globulin 3.4 Albumin/Globulin Ratio 1.0
[2017-02-05] MEDS: (Lantus) Insulin Glargine, Recombinant SC SCH (22:40)
--- NOTE | 2017-02-06 00:28 | CARD ---
APPROVED REPORT EKG Measurement Heart [id number] <Conclusion> Normal sinus rhythm Possible Left atrial enlargement Left axis deviation Septal infarct, age undetermined Abnormal ECG
[2017-02-06] MEDS: Collagenase 250 Units/gm Ointment(30 gm) EXT SCH (10:17)
[2017-02-06] MEDS: (Novolin R) Insulin Human Regular 100 units/ml vial SC SCH ×4 (10:19→21:23)
--- NOTE | 2017-02-06 12:00 | CP.PCM.CON ---
History of Present Illness - History of Present Illness History of Present Illness: Podiatry Consult Note- Dr. Ordonez: This is a 51 yo female patient with pmh PVD, HTN, ESRD (on dialysis), hypercholesterolemia, pneumonia seen at bedside this morning for right foot gangrene. Pt presented to ED 02/04/17 with worsening right leg and foot pain. Pt states that the discoloration of her foot has been worsening past few weeks. 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 Pt is known to Dr. Ordonez and she says she has seen him once in the office. Also of note, patient refused any surgical amputation intervention on last admission in November 2016. Denies f/n/v/c/sob/cp at this time. Review of Systems - Review of Systems Review of Systems: All systems reviewed and found to be negative except HPI findings above Past Patient History - Infectious Disease Hx of Infectious Diseases: None - Past Medical History & Family History Past Medical History?: Yes - Past Social History Smoking Status: Never Smoked - CARDIAC Hx Hypercholesterolemia: Yes Hx Hypertension: Yes Hx Peripheral Vascular Disease: Yes - PULMONARY Hx Bronchitis: Yes Hx Pneumonia: Yes - RENAL Hx Chronic Kidney Disease: Yes Other/Comment: on peritoneal dialysis - ENDOCRINE/METABOLIC Hx Endocrine Disorders: Yes Hx Diabetes Mellitus Type 2: Yes - HEMATOLOGICAL/ONCOLOGICAL Hx Anemia: Yes - INTEGUMENTARY Hx Dermatological Problems: Yes Hx Eczema: Yes - MUSCULOSKELETAL/RHEUMATOLOGICAL Hx Falls: Yes - GENITOURINARY/GYNECOLOGICAL Hx Genitourinary Disorders: Yes (DX: RENAL FAILURE) - PSYCHIATRIC Hx Substance Use: No - SURGICAL HISTORY Hx Surgeries: Yes Hx Section: Yes Hx Eye Surgery: Yes (INSERT "GAS" BUBBLE BOTH EYES) Hx Tubal Ligation: Yes Hx Vascular Access Device: Yes (R SC HD cath) Other/Comment: I&D GROIN; 12/30/14 LAPAROSCOPIC INSERTION PERITONEAL DIALYSIS CATHETER. 01/14/15 REVISION DONE OF PERITIONEAL DIALYSIS CATH. - ANESTHESIA Hx Anesthesia: Yes Hx Anesthesia Reactions: No Hx Malignant Hyperthermia: No Meds Allergies/Adverse Reactions: Allergies Allergy/AdvReac Type Severity Reaction Status Date / Time shrimp Allergy Severe RASH Verified 01/11/17 07:35 - Medications Medications: Current Medications Amlodipine Besylate (Norvasc) 10 mg PO DAILY [facility] Last Admin: 02/06/17 10:16 Dose: 10 mg Aspirin (Ecotrin) 81 mg PO DAILY [facility] Last Admin: 02/06/17 10:16 Dose: 81 mg Calcium Acetate (Phoslo) 2,668 mg PO TIDCC [facility] Last Admin: 02/06/17 08:32 Dose: 2,668 mg Carvedilol (Coreg) 12.5 mg PO BID [facility] Last Admin: 02/06/17 10:18 Dose: 12.5 mg Collagenase (Santyl) 1 gm EXT DAILY [facility] Last Admin: 02/06/17 10:17 Dose: 1 gm Epoetin Alec (Procrit) 10,000 unit SC QWK [facility] Ferrous Sulfate (Feosol) 325 mg PO DAILY [facility] Last Admin: 02/06/17 10:16 Dose: 325 mg Heparin Sodium (Porcine) (Heparin) 5,000 units SC Q12 [facility] Last Admin: 02/06/17 10:21 Dose: Not Given Insulin Glargine (Lantus) 20 unit SC [facility] Last Admin: 02/05/17 22:40 Dose: 20 units Insulin Human Regular (Novolin R) 0 unit SC [facility] PRN Reason: Protocol Last Admin: 02/06/17 10:19 Dose: Not Given Losartan Potassium (Cozaar) 100 mg PO DAILY@1800 [facility] Last Admin: 02/05/17 17:57 Dose: 100 mg Oxycodone/Acetaminophen (Percocet 5/325 Mg Tab) 1 tab PO Q4 PRN PRN Reason: Pain, moderate (4-7) Stop: 02/07/17 18:58 Last Admin: 02/05/17 17:58 Dose: 1 tab Rosuvastatin Calcium (Crestor) 10 mg PO [facility] Last Admin: 02/05/17 22:40 Dose: 10 mg Physical Exam - Constitutional Appears: Non-toxic, No Acute Distress - Extremities Exam Additional comments: Right lower extremity exam: VASC- DP/PT pulses faintly palpable, skin temp runs warm to cool (from proximal to distal), cap refill delayed to 4th and 5th digit (unable to assess 1-3 digits ), no pedal edema NEURO- pedal sensation is grossly intact DERM- dry gangrenous changes noted from medial aspect of midfoot extending distally to 1,2, and 3rd digits with demarcation noted, there also appears to be dusky discoloration noted to the entire midfoot extending distall (dorsal > plantar), no malodor, no drainage, no signs infection ORTHO- tenderness on palpation of dorsal midfoot - Neurological Exam Neurological exam: Alert, CN II-XII Intact, Oriented x3 - Psychiatric Exam Psychiatric exam: Normal Affect, Normal Mood Results - Vital Signs Recent Vital Signs: Last Vital Signs Temp 98.0 F 02/06/17 08:24 Pulse 79 02/06/17 08:24 Resp 20 02/06/17 08:24 BP 158/84 H 02/06/17 10:18 Pulse Ox 98 02/06/17 08:24 - Labs Result Diagrams: 02/05/17 07:26 02/05/17 07:26 Labs: Laboratory Results - last 24 hr 02/05/17 02/05/17 02/06/17 16:13 22:33 06:27 POC Glucose (mg/dL) 130 H 334 H 186 H 02/06/17 02/06/17 07:58 11:16 POC Glucose (mg/dL) 155 H 223 H Assessment & Plan - Assessment and Plan (Free Text) Assessment: 51 yo female patient with dry gangrene of right midfoot and forefoot secondary to PVD Plan: Pt S&E at bedside Plan discussed with attending Dr. Ordonez Chart, labs and vitals reviewed: afebrile, WBC trending down 10.5 (from 11.1) Right foot x-ray (02/04/17): diffuse osteopenia, extensive vascular calcifications , no fractures or dislocations Low ext arterial dopplers ordered: will f/u results prior to any planned surgical intervention Podiatry will continue to follow
--- NOTE | 2017-02-06 15:01 | CP.PCM.PN ---
Subjective - Date & Time of Evaluation Date of Evaluation: 02/06/17 Time of Evaluation: 14:58 - Subjective Subjective: PD going well c/o nausea from pain meds Awaiting decision about surgery Hg down to 7.9 no other complaints gangrene right foot same Objective - Vital Signs/Intake and Output Vital Signs (last 24 hours): Temp Pulse Resp BP Pulse Ox 98.0 F 79 20 158/84 H 98 02/06/17 08:24 02/06/17 08:24 02/06/17 08:24 02/06/17 10:18 02/06/17 08:24 - Medications Medications: Current Medications Amlodipine Besylate (Norvasc) 10 mg PO DAILY [facility] Last Admin: 02/06/17 10:16 Dose: 10 mg Aspirin (Ecotrin) 81 mg PO DAILY [facility] Last Admin: 02/06/17 10:16 Dose: 81 mg Calcium Acetate (Phoslo) 2,668 mg PO TIDCC [facility] Last Admin: 02/06/17 12:41 Dose: 2,668 mg Carvedilol (Coreg) 12.5 mg PO BID [facility] Last Admin: 02/06/17 10:18 Dose: 12.5 mg Collagenase (Santyl) 1 gm EXT DAILY [facility] Last Admin: 02/06/17 10:17 Dose: 1 gm Epoetin Alec (Procrit) 10,000 unit SC QWK [facility] Ferrous Sulfate (Feosol) 325 mg PO DAILY [facility] Last Admin: 02/06/17 10:16 Dose: 325 mg Heparin Sodium (Porcine) (Heparin) 5,000 units SC Q12 [facility] Last Admin: 02/06/17 10:21 Dose: Not Given Insulin Glargine (Lantus) 20 unit SC HS [facility] Last Admin: 02/05/17 22:40 Dose: 20 units Insulin Human Regular (Novolin R) 0 unit SC ACHS [facility] PRN Reason: Protocol Last Admin: 02/06/17 12:40 Dose: 2 unit Losartan Potassium (Cozaar) 100 mg PO DAILY@1800 [facility] Last Admin: 02/05/17 17:57 Dose: 100 mg Oxycodone/Acetaminophen (Percocet 5/325 Mg Tab) 1 tab PO Q4 PRN PRN Reason: Pain, moderate (4-7) Stop: 02/07/17 18:58 Last Admin: 02/05/17 17:58 Dose: 1 tab Rosuvastatin Calcium (Crestor) 10 mg PO HS [facility] Last Admin: 02/05/17 22:40 Dose: 10 mg - Labs Labs: 02/05/17 07:26 02/05/17 07:26 - Constitutional Appears: No Acute Distress, Chronically Ill - Head Exam Head Exam: ATRAUMATIC, NORMAL INSPECTION - Eye Exam Eye Exam: EOMI, Normal appearance - Neck Exam Neck Exam: Normal Inspection. absent: Tenderness - Respiratory Exam Respiratory Exam: Clear to Ausculation Bilateral, NORMAL BREATHING PATTERN - Cardiovascular Exam Cardiovascular Exam: REGULAR RHYTHM, +S1 - GI/Abdominal Exam GI & Abdominal Exam: Distended, Soft - Extremities Exam Extremities Exam: Normal Inspection. absent: Tenderness - Neurological Exam Neurological Exam: Alert, CN II-XII Intact - Skin Skin Exam: Dry, Warm Assessment and Plan (1) Type 1 diabetes mellitus with diabetic nephropathy Status: Acute (2) Gangrene of right foot Status: Acute (3) End stage renal disease Status: Acute - Assessment and Plan (Free Text) Plan: Same PD IV ABs check iron stores increase EPO Await surgery
--- NOTE | 2017-02-06 16:43 | CP.PCM.PN ---
Subjective - Date & Time of Evaluation Date of Evaluation: 02/06/17 Time of Evaluation: 08:00 - Subjective Subjective: 51 yo female patient with pmh PVD, HTN, ESRD (on dialysis), hypercholesterolemia , pneumonia seen at bedside this morning for right foot gangrene. Pt presented to ED 02/04/17 with worsening right leg and foot pain. Pt states that the discoloration of her foot has been worsening past few weeks. 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 Objective - Vital Signs/Intake and Output Vital Signs (last 24 hours): Temp Pulse Resp BP Pulse Ox 98.1 F 75 20 152/76 H 100 02/06/17 15:56 02/06/17 15:56 02/06/17 15:56 02/06/17 15:56 02/06/17 15:56 - Medications Medications: Current Medications Amlodipine Besylate (Norvasc) 10 mg PO DAILY [facility] Last Admin: 02/06/17 10:16 Dose: 10 mg Aspirin (Ecotrin) 81 mg PO DAILY [facility] Last Admin: 02/06/17 10:16 Dose: 81 mg Calcium Acetate (Phoslo) 2,668 mg PO TIDCC [facility] Last Admin: 02/06/17 12:41 Dose: 2,668 mg Carvedilol (Coreg) 12.5 mg PO BID [facility] Last Admin: 02/06/17 10:18 Dose: 12.5 mg Collagenase (Santyl) 1 gm EXT DAILY [facility] Last Admin: 02/06/17 10:17 Dose: 1 gm Epoetin Alec (Procrit) 10,000 unit SC F [facility] Ferrous Sulfate (Feosol) 325 mg PO DAILY [facility] Last Admin: 02/06/17 10:16 Dose: 325 mg Heparin Sodium (Porcine) (Heparin) 5,000 units SC Q12 [facility] Last Admin: 02/06/17 10:21 Dose: Not Given Insulin Glargine (Lantus) 20 unit SC HS [facility] Last Admin: 02/05/17 22:40 Dose: 20 units Insulin Human Regular (Novolin R) 0 unit SC ACHS [facility] PRN Reason: Protocol Last Admin: 02/06/17 12:40 Dose: 2 unit Losartan Potassium (Cozaar) 100 mg PO DAILY@1800 [facility] Last Admin: 02/05/17 17:57 Dose: 100 mg Oxycodone/Acetaminophen (Percocet 5/325 Mg Tab) 1 tab PO Q4 PRN PRN Reason: Pain, moderate (4-7) Stop: 02/07/17 18:58 Last Admin: 02/05/17 17:58 Dose: 1 tab Rosuvastatin Calcium (Crestor) 10 mg PO HS [facility] Last Admin: 02/05/17 22:40 Dose: 10 mg - Labs Labs: 02/05/17 07:26 02/05/17 07:26 - Constitutional Appears: Non-toxic, Chronically Ill - Head Exam Head Exam: NORMOCEPHALIC - Eye Exam Eye Exam: PERRL - Neck Exam Neck Exam: absent: Lymphadenopathy - Respiratory Exam Respiratory Exam: Decreased Breath Sounds, Clear to Ausculation Bilateral - Cardiovascular Exam Cardiovascular Exam: REGULAR RHYTHM - GI/Abdominal Exam GI & Abdominal Exam: Distended, Soft - Rectal Exam Rectal Exam: Deferred - Exam Exam: NORMAL INSPECTION - Extremities Exam Extremities Exam: absent: Pedal Edema - Back Exam Back Exam: absent: CVA tenderness (L), CVA tenderness (R) - Neurological Exam Neurological Exam: Alert, Awake, Oriented x3 - Skin Skin Exam: Dry Additional comments: dark discoloration rle Assessment and Plan (1) Gangrene of right foot Status: Acute (2) Chronic anemia Status: Acute (3) Chronic congestive heart failure Status: Acute (4) Diabetes mellitus Status: Acute (5) ESRD on peritoneal dialysis Status: Acute - Assessment and Plan (Free Text) Assessment: poor prognosis await vascular eval cultures negative thus far
[2017-02-06] MEDS ORDERED: Piperacillin/Tazobact 3.375 GM in Sodium Chloride 100 ML IVPB SCH ×2 (16:45→18:00)
[2017-02-06] MEDS: (Lantus) Insulin Glargine, Recombinant SC SCH (21:28)
[2017-02-06] MEDS: Oxycodone/Acetaminophen 5/325 mg Tab PO PRN (21:29)
--- NOTE | 2017-02-07 00:47 | CP.PCM.PN ---
Subjective - Date & Time of Evaluation Date of Evaluation: 02/06/17 Time of Evaluation: 19:00 - Subjective Subjective: Patient is feeling okay, denies any chest pain. Right foot pain noted. No nausea vomiting. But poor appetite Patient is concerned about the surgical intervention. Vital signs stable Clinical otherwise stable. We'll discuss with the heater installer. Possible intervention on Saturday. Objective - Vital Signs/Intake and Output Vital Signs (last 24 hours): Temp Pulse Resp BP Pulse Ox 98.1 F 75 20 145/72 100 02/06/17 15:56 02/06/17 15:56 02/06/17 15:56 02/06/17 17:47 02/06/17 15:56 Intake and Output: 02/06/17 02/07/17 18:59 06:59 Intake Total 800 Balance 800 - Medications Medications: Current Medications Amlodipine Besylate (Norvasc) 10 mg PO DAILY [facility] Last Admin: 02/06/17 10:16 Dose: 10 mg Aspirin (Ecotrin) 81 mg PO DAILY [facility] Last Admin: 02/06/17 10:16 Dose: 81 mg Calcium Acetate (Phoslo) 2,668 mg PO TIDCC [facility] Last Admin: 02/06/17 17:44 Dose: 2,668 mg Carvedilol (Coreg) 12.5 mg PO BID [facility] Last Admin: 02/06/17 17:47 Dose: 12.5 mg Collagenase (Santyl) 1 gm EXT DAILY [facility] Last Admin: 02/06/17 10:17 Dose: 1 gm Epoetin Alec (Procrit) 10,000 unit SC MWF [facility] Ferrous Sulfate (Feosol) 325 mg PO DAILY [facility] Last Admin: 02/06/17 10:16 Dose: 325 mg Heparin Sodium (Porcine) (Heparin) 5,000 units SC Q12 [facility] Last Admin: 02/06/17 21:29 Dose: Not Given Insulin Glargine (Lantus) 20 unit SC HS [facility] Last Admin: 02/06/17 21:28 Dose: 20 units Insulin Human Regular (Novolin R) 0 unit SC ACHS [facility] PRN Reason: Protocol Last Admin: 02/06/17 21:23 Dose: Not Given Losartan Potassium (Cozaar) 100 mg PO DAILY@1800 [facility] Last Admin: 02/06/17 17:47 Dose: 100 mg Oxycodone/Acetaminophen (Percocet 5/325 Mg Tab) 1 tab PO Q4 PRN PRN Reason: Pain, moderate (4-7) Stop: 02/07/17 18:58 Last Admin: 02/06/17 21:29 Dose: 1 tab Rosuvastatin Calcium (Crestor) 10 mg PO HS [facility] Last Admin: 02/06/17 21:28 Dose: 10 mg - Labs Labs: 02/05/17 07:26 02/05/17 07:26
[2017-02-07] MEDS: (Novolin R) Insulin Human Regular 100 units/ml vial SC SCH ×4 (08:34→21:18)
--- NOTE | 2017-02-07 09:23 | CP.PCM.PN ---
Subjective - Date & Time of Evaluation Date of Evaluation: 02/07/17 Time of Evaluation: 08:00 - Subjective Subjective: Podiatry Progress Note- Dr. Ordonez: 51 yo female pt seen at bedside this morning with Dr. Ordonez present for follow up of right foot gangrene. Pt seen resting upright in bed at time of visit. Pt does complain of some tenderness to the right foot today. Pt says she did not get her vascular studies done yet because she was having pain yesterday when she was brought for testing. Denies f/n/v/c/sob/cp at this time. Pt says today that she does want the amputation of the foot. Objective - Vital Signs/Intake and Output Vital Signs (last 24 hours): Temp Pulse Resp BP Pulse Ox 98.3 F 83 20 149/71 96 02/06/17 23:55 02/06/17 23:55 02/06/17 23:55 02/06/17 23:55 02/06/17 23:55 Intake and Output: 02/07/17 02/07/17 06:59 18:59 Intake Total 800 Balance 800 - Medications Medications: Current Medications Amlodipine Besylate (Norvasc) 10 mg PO DAILY [facility] Last Admin: 02/06/17 10:16 Dose: 10 mg Aspirin (Ecotrin) 81 mg PO DAILY [facility] Last Admin: 02/06/17 10:16 Dose: 81 mg Calcium Acetate (Phoslo) 2,668 mg PO TIDCC [facility] Last Admin: 02/07/17 08:34 Dose: 2,668 mg Carvedilol (Coreg) 12.5 mg PO BID [facility] Last Admin: 02/06/17 17:47 Dose: 12.5 mg Collagenase (Santyl) 1 gm EXT DAILY [facility] Last Admin: 02/06/17 10:17 Dose: 1 gm Epoetin Alec (Procrit) 10,000 unit SC MWF [facility] Ferrous Sulfate (Feosol) 325 mg PO DAILY [facility] Last Admin: 02/06/17 10:16 Dose: 325 mg Heparin Sodium (Porcine) (Heparin) 5,000 units SC Q12 [facility] Last Admin: 02/06/17 21:29 Dose: Not Given Insulin Glargine (Lantus) 20 unit SC HS [facility] Last Admin: 02/06/17 21:28 Dose: 20 units Insulin Human Regular (Novolin R) 0 unit SC ACHS [facility] PRN Reason: Protocol Last Admin: 02/07/17 08:34 Dose: 2 unit Losartan Potassium (Cozaar) 100 mg PO DAILY@1800 [facility] Last Admin: 02/06/17 17:47 Dose: 100 mg Morphine Sulfate (Morphine) 2 mg SC Q6H PRN PRN Reason: Pain, moderate (4-7) Last Admin: 02/07/17 09:02 Dose: 2 mg Oxycodone/Acetaminophen (Percocet 5/325 Mg Tab) 1 tab PO Q4 PRN PRN Reason: Pain, moderate (4-7) Stop: 02/07/17 18:58 Last Admin: 02/06/17 21:29 Dose: 1 tab Rosuvastatin Calcium (Crestor) 10 mg PO HS [facility] Last Admin: 02/06/17 21:28 Dose: 10 mg - Labs Labs: 02/05/17 07:26 02/05/17 07:26 - Constitutional Appears: Non-toxic, No Acute Distress - Extremities Exam Additional comments: Right lower extremity exam: VASC- DP/PT pulses faintly palpable, skin temp runs warm to cool (from proximal to distal), cap refill delayed to 4th and 5th digit (unable to assess 1-3 digits ), no pedal edema NEURO- pedal sensation is grossly intact DERM- dry gangrenous changes noted from medial aspect of midfoot extending distally to 1,2, and 3rd digits with demarcation noted, there also appears to be dusky discoloration noted to the entire midfoot extending distall (dorsal > plantar), no malodor, no drainage, no signs infection ORTHO- tenderness on palpation of dorsal midfoot - Neurological Exam Neurological Exam: Alert, Awake, Oriented x3 - Psychiatric Exam Psychiatric exam: Normal Affect, Normal Mood Assessment and Plan - Assessment and Plan (Free Text) Assessment: 51 yo female patient with dry gangrene of right midfoot and forefoot secondary to PVD Plan: Pt S&E at bedside with Dr. Ordonez present Chart, labs and vitals reviewed: afebrile Right foot x-ray (02/04/17): diffuse osteopenia, extensive vascular calcifications , no fractures or dislocations For low ext arterial dopplers today, will f/u results prior to any planned surgical intervention. If flow is patent to the foot plan is for right foot transmetatarsal amputation tomorrow 02/08/[address] Ordonez. Addressed all questions and concerns with patient. Medical clearance is requested from Dr. Cabello. Physical therapy eval ordered: pt will need to be NWB right foot with walker NPO after midnight Heparin to be held Podiatry will continue to follow
--- NOTE | 2017-02-07 10:54 | CP.PCM.PN ---
Subjective - Date & Time of Evaluation Date of Evaluation: 02/07/17 Time of Evaluation: 10:51 - Subjective Subjective: PD going well HTN controlled Noted surgical evaluation- possible right TMA in AM Hg still rather low- EPO dose adjusted LIkely will need blood transfusion with surgery Will check iron stores Objective - Vital Signs/Intake and Output Vital Signs (last 24 hours): Temp Pulse Resp BP Pulse Ox 97.4 F L 59 L 20 135/60 99 02/07/17 08:00 02/07/17 08:00 02/07/17 08:00 02/07/17 08:00 02/07/17 08:00 Intake and Output: 02/07/17 02/07/17 06:59 18:59 Intake Total 800 Balance 800 - Medications Medications: Current Medications Amlodipine Besylate (Norvasc) 10 mg PO DAILY [facility] Last Admin: 02/06/17 10:16 Dose: 10 mg Aspirin (Ecotrin) 81 mg PO DAILY [facility] Last Admin: 02/06/17 10:16 Dose: 81 mg Calcium Acetate (Phoslo) 2,668 mg PO TIDCC [facility] Last Admin: 02/07/17 08:34 Dose: 2,668 mg Carvedilol (Coreg) 12.5 mg PO BID [facility] Last Admin: 02/06/17 17:47 Dose: 12.5 mg Collagenase (Santyl) 1 gm EXT DAILY [facility] Last Admin: 02/06/17 10:17 Dose: 1 gm Epoetin Alec (Procrit) 10,000 unit SC MWF [facility] Ferrous Sulfate (Feosol) 325 mg PO DAILY [facility] Last Admin: 02/06/17 10:16 Dose: 325 mg Heparin Sodium (Porcine) (Heparin) 5,000 units SC Q12 [facility] Last Admin: 02/06/17 21:29 Dose: Not Given Insulin Glargine (Lantus) 20 unit SC HS [facility] Last Admin: 02/06/17 21:28 Dose: 20 units Insulin Human Regular (Novolin R) 0 unit SC ACHS [facility] PRN Reason: Protocol Last Admin: 02/07/17 08:34 Dose: 2 unit Losartan Potassium (Cozaar) 100 mg PO DAILY@1800 [facility] Last Admin: 02/06/17 17:47 Dose: 100 mg Morphine Sulfate (Morphine) 2 mg SC Q6H PRN PRN Reason: Pain, moderate (4-7) Last Admin: 02/07/17 09:02 Dose: 2 mg Oxycodone/Acetaminophen (Percocet 5/325 Mg Tab) 1 tab PO Q4 PRN PRN Reason: Pain, moderate (4-7) Stop: 02/07/17 18:58 Last Admin: 02/06/17 21:29 Dose: 1 tab Rosuvastatin Calcium (Crestor) 10 mg PO HS [facility] Last Admin: 02/06/17 21:28 Dose: 10 mg - Labs Labs: 02/05/17 07:26 02/05/17 07:26 - Constitutional Appears: No Acute Distress, Chronically Ill - Head Exam Head Exam: ATRAUMATIC, NORMAL INSPECTION - Eye Exam Eye Exam: EOMI, Normal appearance - Neck Exam Neck Exam: Normal Inspection. absent: Tenderness - Respiratory Exam Respiratory Exam: Clear to Ausculation Bilateral, NORMAL BREATHING PATTERN - Cardiovascular Exam Cardiovascular Exam: REGULAR RHYTHM, +S1 - GI/Abdominal Exam GI & Abdominal Exam: Soft. absent: Tenderness - Extremities Exam Extremities Exam: Calf Tenderness, Tenderness - Neurological Exam Neurological Exam: Alert, CN II-XII Intact - Skin Skin Exam: Dry, Warm Assessment and Plan (1) Type 1 diabetes mellitus with diabetic nephropathy Status: Acute (2) Gangrene of right foot Status: Acute (3) End stage renal disease Status: Acute - Assessment and Plan (Free Text) Plan: Same PD ESAs check iron stores consider blood transfusion prior to surgery possible right TMA soon
[2017-02-07] MEDS ORDERED: Lidocaine 1% Inj (20ml) ONE (11:23)
[2017-02-07] MEDS: Collagenase 250 Units/gm Ointment(30 gm) EXT SCH (11:33)
--- NOTE | 2017-02-07 14:25 | CON ---
REQUESTING PHYSICIANS: Dr. Lord and Dr. Clark. HISTORY OF PRESENT ILLNESS: This is a 51-year-old black female with gangrene and peripheral vascular disease of the right lower extremity with depiction of gross dry gangrene about the distal forefoot. The patient was seen in my office last week concerning the need for amputation surgery. I was just notified yesterday about the consultation and seeing this morning at bedside. The patient is alert, oriented x3. The patient is going for noninvasive arterial studies today and upon those results, we will know whether or not a transmetatarsal amputation will be carried out tomorrow, Saturday. Medical clearance by Dr. Lord and we await the nonvascular studies. Kenneth Durham DPM
--- NOTE | 2017-02-07 18:46 | CP.PCM.PN ---
Subjective - Date & Time of Evaluation Date of Evaluation: 02/07/17 Time of Evaluation: 18:46 - Subjective Subjective: Patient is receiving peritoneal dialysis. Blood sugar is controlled well and blood pressure is controlled. During the last hospitalization patient underwent angiogram of the heart, patient has a diffuse a coronary artery disease. At the time it was decided for medical aggressive treatment. Ejection fraction is normal. Patient is otherwise feeling well. In my opinion patient is medically stable for transmetatarsal amputation of the right foot. Routine postoperative management. Postoperatively will maintain the patient on antiplatelets, beta blockers, anticholesterol medication. Aggressive glucose control, peritoneal dialysis. Patient has anemia, hemoglobin is on the low side. May need a blood transfusion during the operation. We'll repeat the CBC in the morning. Maintain the hemoglobin more than 9. Currently on erythropoietin. Explained to the patient. And will follow the patient Objective - Vital Signs/Intake and Output Vital Signs (last 24 hours): Temp Pulse Resp BP Pulse Ox 97.6 F 69 20 136/69 97 02/07/17 16:20 02/07/17 16:20 02/07/17 16:20 02/07/17 17:27 02/07/17 16:20 Intake and Output: 02/07/17 02/07/17 06:59 18:59 Intake Total 800 240 Balance 800 240 - Medications Medications: Current Medications Amlodipine Besylate (Norvasc) 10 mg PO DAILY [facility] Last Admin: 02/07/17 11:33 Dose: 10 mg Aspirin (Ecotrin) 81 mg PO DAILY [facility] Last Admin: 02/07/17 17:27 Dose: 81 mg Calcium Acetate (Phoslo) 2,668 mg PO TIDCC [facility] Last Admin: 02/07/17 17:27 Dose: 2,668 mg Carvedilol (Coreg) 12.5 mg PO BID [facility] Last Admin: 02/07/17 17:27 Dose: 12.5 mg Collagenase (Santyl) 1 gm EXT DAILY [facility] Last Admin: 02/07/17 11:33 Dose: Not Given Epoetin Alec (Procrit) 10,000 unit SC MWF [facility] Ferrous Sulfate (Feosol) 325 mg PO DAILY [facility] Last Admin: 02/07/17 11:33 Dose: 325 mg Heparin Sodium (Porcine) (Heparin) 5,000 units SC Q12 [facility] Last Admin: 02/06/17 21:29 Dose: Not Given Insulin Glargine (Lantus) 20 unit SC HS [facility] Last Admin: 02/06/17 21:28 Dose: 20 units Insulin Human Regular (Novolin R) 0 unit SC [facility] PRN Reason: Protocol Last Admin: 02/07/17 17:14 Dose: Not Given Losartan Potassium (Cozaar) 100 mg PO DAILY@1800 [facility] Last Admin: 02/07/17 17:27 Dose: 100 mg Morphine Sulfate (Morphine) 2 mg SC Q6H PRN PRN Reason: Pain, moderate (4-7) Last Admin: 02/07/17 09:02 Dose: 2 mg Oxycodone/Acetaminophen (Percocet 5/325 Mg Tab) 1 tab PO Q4 PRN PRN Reason: Pain, moderate (4-7) Stop: 02/07/17 18:58 Last Admin: 02/06/17 21:29 Dose: 1 tab Rosuvastatin Calcium (Crestor) 10 mg PO HS [facility] Last Admin: 02/06/17 21:28 Dose: 10 mg - Labs Labs: 02/05/17 07:26 02/05/17 07:26
[2017-02-07] MEDS ORDERED: Oxycodone/Acetaminophen 5/325 mg Tab PO PRN (19:31)
[2017-02-07] MEDS: (Lantus) Insulin Glargine, Recombinant SC SCH ×2 (20:45→22:00)
[2017-02-08 08:18] LABS: BASO % 0.5 % (0.0-2.0); EOS # 0.2 K/uL (0.0-0.7); EOS % 1.7 % (0.0-4.0); HEMATOCRIT 25.1 % (34.0-47.0); LYMPH # 2.4 K/uL (1.0-4.3); LYMPH % 26.5 % (20.0-40.0); MEAN CELL VOLUME 89.7 fL (81.0-99.0); MEAN CORPUSCULAR HEMOGLOBIN 30.1 pg (27.0-31.0); MEAN CORPUSCULAR HGB CONC 33.6 g/dL (33.0-37.0); MEAN PLATELET VOLUME 8.2 fL (7.2-11.7); MONO # 0.9 K/uL (0.0-0.8); MONO % 10.2 % (0.0-10.0); RED CELL DISTRIBUTION WIDTH 16.1 % (11.5-14.5); WHITE BLOOD COUNT 9.1 K/uL (4.8-10.8)
[2017-02-08] MEDS: (Novolin R) Insulin Human Regular 100 units/ml vial SC SCH ×4 (08:42→22:10)
[2017-02-08 08:57] LABS: POTASSIUM 4.5 mmol/L (3.6-5.2)
[2017-02-08 09:00] LABS: BILIRUBIN,TOTAL 0.4 mg/dL (0.2-1.3); TOTAL PROTEIN 6.6 g/dL (6.3-8.3)
[2017-02-08] MEDS: EPOETIN ALFA 10,000 UNIT/ML ML SC SCH ×2 (09:30→21:28)
--- NOTE | 2017-02-08 11:01 | VASCLAB ---
PROCEDURE: HISTORY: Pain COMPARISON: None available. TECHNIQUE: Grayscale and duplex Doppler evaluation of the right common femoral, femoral, profunda femoral, popliteal, posterior tibial, anterior tibial and dorsalis pedis arteries was performed. Report prepared by TARA Mariano, RVT FINDINGS: RIGHT LOWER EXTREMITY: * Common Femoral Artery: Peak Systolic Velocity - 210: Doppler Waveform: Biphasic: Plaque description - Calcific * Profunda Femoral Artery: Peak Systolic Velocity - 135: Doppler Waveform: Biphasic.: Plaque description - Calcific * Femoral Artery o Proximal Segment: Peak Systolic Velocity - : Doppler Waveform: : Plaque description - o Middle Segment: Peak Systolic Velocity - : Doppler Waveform: : Plaque description - o Distal Segment: Peak Systolic Velocity - : Doppler Waveform: : Plaque description - * Popliteal Artery o Proximal Segment: Peak Systolic Velocity - 124: Doppler Waveform: Biphasic: Plaque description - Calcific o Middle Segment: Peak Systolic Velocity - 66: Doppler Waveform: Biphasic: Plaque description - Calcific o Distal Segment: Peak Systolic Velocity - 77: Doppler Waveform: Biphasic: Plaque description - Calcific * Posterior Tibial Artery: Peak Systolic Velocity - 0: Doppler Waveform: Absent: Plaque description - Calcific * Anterior Tibial Artery: Peak Systolic Velocity - 38: Doppler Waveform: Monophasic: Plaque description - Calcific * Dorsalis Pedis Artery: Peak Systolic Velocity - : Doppler Waveform: : Plaque description - OTHER FINDINGS: RN Kiley notified about the findings. 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 Greater than 75% stenosis of the right femoral to popliteal bypass graft proximal anastomosis. 30-49% stenosis of the right common femoral artery. Recommend angiogram and endovascular repair.
[2017-02-08] MEDS: Collagenase 250 Units/gm Ointment(30 gm) EXT SCH (11:35)
--- NOTE | 2017-02-08 11:40 | CP.PCM.PCO ---
Physician Communication Note - Physician Communication Note Physician Communication Note: Stenosis of fem-pop bypass graft. Podiatry will f/ u [facility] recs.
--- NOTE | 2017-02-08 11:52 | CP.PCM.PN ---
Subjective - Date & Time of Evaluation Date of Evaluation: 02/08/17 Time of Evaluation: 11:15 - Subjective Subjective: CATERING AND EVENTS MANAGER ADDRESSED PT AND SON'S CONCERNS REGARDING PICC LINE REPLACEMENT, FOOT SURGERY , AND CT ANGIO. PT AND SON ARE VERY UPSET AND FEEL THEIR NEEDS ARE NOT BEING MET REGARDLESS OF LENGTHY DISCUSSIONS REGARDING CARE BY ALL CONSULTS AND MEDICAL TEAM. PT NOTED WRITING DOWN ALL INFORMATION DISCUSSED, WELL CATERING AND EVENTS MANAGER NAME IN NOTEPAD. PT STATES SHE HAS BEEN WRITING "EVERYTHING AND EVERYONE DOWN. " DR. CARTER MADE AWARE OF PT AND SON'S DISPOSITION, CATERING AND EVENTS MANAGER TO REMAIN OFF CASE FOR NOW AND PT TO BE MANAGED BY CONSULTS AND DR. CARTER. NO FURTHER ORDERS. Objective - Vital Signs/Intake and Output Vital Signs (last 24 hours): Temp Pulse Resp BP Pulse Ox 97.7 F 75 20 128/84 98 02/08/17 07:52 02/08/17 07:52 02/08/17 07:52 02/08/17 07:52 02/08/17 07:52 - Medications Medications: Current Medications Amlodipine Besylate (Norvasc) 10 mg PO DAILY [facility] Last Admin: 02/07/17 11:33 Dose: 10 mg Aspirin (Ecotrin) 81 mg PO DAILY [facility] Last Admin: 02/07/17 17:27 Dose: 81 mg Calcium Acetate (Phoslo) 2,668 mg PO TIDCC [facility] Last Admin: 02/08/17 08:43 Dose: Not Given Carvedilol (Coreg) 12.5 mg PO BID [facility] Last Admin: 02/07/17 17:27 Dose: 12.5 mg Collagenase (Santyl) 1 gm EXT DAILY [facility] Last Admin: 02/07/17 11:33 Dose: Not Given Epoetin Alec (Procrit) 10,000 unit SC MWF [facility] Ferrous Sulfate (Feosol) 325 mg PO DAILY [facility] Last Admin: 02/07/17 11:33 Dose: 325 mg Heparin Sodium (Porcine) (Heparin) 5,000 units SC Q12 [facility] Last Admin: 02/06/17 21:29 Dose: Not Given Insulin Glargine (Lantus) 20 unit SC HS [facility] Last Admin: 02/07/17 22:00 Dose: Not Given Insulin Human Regular (Novolin R) 0 unit SC ACHS [facility] PRN Reason: Protocol Last Admin: 02/08/17 08:42 Dose: Not Given Losartan Potassium (Cozaar) 100 mg PO DAILY@1800 [facility] Last Admin: 02/07/17 17:27 Dose: 100 mg Morphine Sulfate (Morphine) 2 mg SC Q6H PRN PRN Reason: Pain, moderate (4-7) Last Admin: 02/07/17 20:32 Dose: 2 mg Oxycodone/Acetaminophen (Percocet 5/325 Mg Tab) 1 tab PO Q4H PRN PRN Reason: Pain, moderate (4-7) Stop: 02/10/17 19:32 Rosuvastatin Calcium (Crestor) 10 mg PO HS [facility] Last Admin: 02/07/17 21:21 Dose: 10 mg - Labs Labs: 02/08/17 08:07 02/08/17 08:07 PT 10.8 SECONDS (9.7-12.2) 02/08/17 08:07 INR 1.0 02/08/17 08:07 APTT 34 SECONDS (21-34) 02/08/17 08:07
--- NOTE | 2017-02-08 12:18 | PCM.SURG1 ---
Surgeon's Initial Post Op Note - Surgeon's Notes Surgeon: Quique Atkinson MD Loan Examiner: NONE Type of Anesthesia: Local Pre-Operative Diagnosis: Non functional picc, infection Operative Findings: Right arm single lumen picc present. Post-Operative Diagnosis: Infection Operation Performed: Exchange of right arm picc for a new single lumen picc, 35 cm. Tip in SVC. Specimen/Specimens Removed: NOne Estimated Blood Loss: EBL {In ML}: 0 Blood Products Given: N/A Drains Used: No Drains Post-Op Condition: Fair Date of Surgery/Procedure: 02/08/17 Time of Surgery/Procedure: 12:15
[2017-02-08] MEDS ORDERED: Midazolam 2 MG/2 ML VIAL ONE (13:23)
--- NOTE | 2017-02-08 14:00 | CP.PCM.PN ---
Subjective - Date & Time of Evaluation Date of Evaluation: 02/08/17 Time of Evaluation: 13:59 - Subjective Subjective: pat. denies sexual relations since October will procedd with angio Objective - Vital Signs/Intake and Output Vital Signs (last 24 hours): Temp Pulse Resp BP Pulse Ox 97.7 F 75 20 128/84 98 02/08/17 07:52 02/08/17 07:52 02/08/17 07:52 02/08/17 07:52 02/08/17 07:52 - Medications Medications: Current Medications Amlodipine Besylate (Norvasc) 10 mg PO DAILY [facility] Last Admin: 02/07/17 11:33 Dose: 10 mg Aspirin (Ecotrin) 81 mg PO DAILY [facility] Last Admin: 02/07/17 17:27 Dose: 81 mg Calcium Acetate (Phoslo) 2,668 mg PO TIDCC [facility] Last Admin: 02/08/17 08:43 Dose: Not Given Carvedilol (Coreg) 12.5 mg PO BID [facility] Last Admin: 02/07/17 17:27 Dose: 12.5 mg Collagenase (Santyl) 1 gm EXT DAILY [facility] Last Admin: 02/07/17 11:33 Dose: Not Given Epoetin Alec (Procrit) 10,000 unit SC MWF [facility] Ferrous Sulfate (Feosol) 325 mg PO DAILY [facility] Last Admin: 02/07/17 11:33 Dose: 325 mg Heparin Sodium (Porcine) (Heparin) 5,000 units SC Q12 [facility] Last Admin: 02/06/17 21:29 Dose: Not Given Insulin Glargine (Lantus) 20 unit SC HS [facility] Last Admin: 02/07/17 22:00 Dose: Not Given Insulin Human Regular (Novolin R) 0 unit SC ACHS [facility] PRN Reason: Protocol Last Admin: 02/08/17 08:42 Dose: Not Given Losartan Potassium (Cozaar) 100 mg PO DAILY@1800 [facility] Last Admin: 02/07/17 17:27 Dose: 100 mg Morphine Sulfate (Morphine) 2 mg SC Q6H PRN PRN Reason: Pain, moderate (4-7) Last Admin: 02/07/17 20:32 Dose: 2 mg Oxycodone/Acetaminophen (Percocet 5/325 Mg Tab) 1 tab PO Q4H PRN PRN Reason: Pain, moderate (4-7) Stop: 02/10/17 19:32 Rosuvastatin Calcium (Crestor) 10 mg PO HS [facility] Last Admin: 02/07/17 21:21 Dose: 10 mg - Labs Labs: 02/08/17 08:07 02/08/17 08:07 PT 10.8 SECONDS (9.7-12.2) 02/08/17 08:07 INR 1.0 02/08/17 08:07 APTT 34 SECONDS (21-34) 02/08/17 08:07
[2017-02-08] MEDS ORDERED: Propofol 10 mg/ml Inj (20 ML) ONE (14:11)
[2017-02-08] MEDS ORDERED: Lidocaine 2% Inj (20ml) ONE (14:15)
[2017-02-08] MEDS ORDERED: Iodixanol 320 MG/ML 200 ML BOTTLE IV ONE (14:18)
[2017-02-08] MEDS ORDERED: Iodixanol 320 MG/ML 100 ML BOTTLE IV ONE (15:31)
--- NOTE | 2017-02-08 16:30 | PCM.SURG1 ---
Surgeon's Initial Post Op Note - Surgeon's Notes Surgeon: jeffrey Commercial Finance Analyst: 0 Type of Anesthesia: IV Sedation Anesthesia Administered By: camryn Pre-Operative Diagnosis: gangrene right foot. vein graft stenosis Operative Findings: severe focal stenosis of proximal vein graft right. diseased proximal 8cm of vein graft Post-Operative Diagnosis: same Operation Performed: aortofemoral angiogram via left groin with selective catherization of right femoral artery. dcb to vein 4mm. stent innova proximal right gsv graft Specimen/Specimens Removed: 0 Estimated Blood Loss: EBL {In ML}: 50 Blood Products Given: N/A Drains Used: No Drains Post-Op Condition: Good Date of Surgery/Procedure: 02/08/17 Time of Surgery/Procedure: 16:33
--- NOTE | 2017-02-08 16:57 | CP.PCM.PN ---
Subjective - Date & Time of Evaluation Date of Evaluation: 02/08/17 Time of Evaluation: 16:55 - Subjective Subjective: s/p new stent placed post CTA post op now PD had been going well Objective - Vital Signs/Intake and Output Vital Signs (last 24 hours): Temp Pulse Resp BP Pulse Ox 97.7 F 68 20 104/57 L 98 02/08/17 07:52 02/08/17 08:55 02/08/17 07:52 02/08/17 11:30 02/08/17 07:52 Intake and Output: 02/08/17 02/08/17 06:59 18:59 Intake Total 0 Balance 0 - Medications Medications: Current Medications Amlodipine Besylate (Norvasc) 10 mg PO DAILY [facility] Last Admin: 02/08/17 11:30 Dose: Not Given Aspirin (Ecotrin) 81 mg PO DAILY [facility] Last Admin: 02/08/17 11:35 Dose: Not Given Calcium Acetate (Phoslo) 2,668 mg PO TIDCC [facility] Last Admin: 02/08/17 12:22 Dose: Not Given Carvedilol (Coreg) 12.5 mg PO BID [facility] Last Admin: 02/08/17 11:30 Dose: Not Given Clopidogrel Bisulfate (Plavix) 75 mg PO DAILY [facility] Collagenase (Santyl) 1 gm EXT DAILY [facility] Last Admin: 02/08/17 11:35 Dose: Not Given Epoetin Alec (Procrit) 10,000 unit SC MWF [facility] Last Admin: 02/08/17 09:30 Dose: Not Given Ferrous Sulfate (Feosol) 325 mg PO DAILY [facility] Last Admin: 02/08/17 11:35 Dose: Not Given Heparin Sodium (Porcine) (Heparin) 5,000 units SC Q12 [facility] Last Admin: 02/06/17 21:29 Dose: Not Given Insulin Glargine (Lantus) 20 unit SC HS [facility] Last Admin: 02/07/17 22:00 Dose: Not Given Insulin Human Regular (Novolin R) 0 unit SC ACHS [facility] PRN Reason: Protocol Last Admin: 02/08/17 11:33 Dose: Not Given Losartan Potassium (Cozaar) 100 mg PO DAILY@1800 [facility] Last Admin: 02/07/17 17:27 Dose: 100 mg Morphine Sulfate (Morphine) 2 mg SC Q6H PRN PRN Reason: Pain, moderate (4-7) Last Admin: 02/07/17 20:32 Dose: 2 mg Oxycodone/Acetaminophen (Percocet 5/325 Mg Tab) 1 tab PO Q4H PRN PRN Reason: Pain, moderate (4-7) Stop: 02/10/17 19:32 Rosuvastatin Calcium (Crestor) 10 mg PO HS [facility] Last Admin: 02/07/17 21:21 Dose: 10 mg - Labs Labs: 02/08/17 08:07 02/08/17 08:07 PT 10.8 SECONDS (9.7-12.2) 02/08/17 08:07 INR 1.0 02/08/17 08:07 APTT 34 SECONDS (21-34) 02/08/17 08:07 - Constitutional Appears: No Acute Distress, Chronically Ill - Head Exam Head Exam: ATRAUMATIC, NORMAL INSPECTION - Respiratory Exam Respiratory Exam: Clear to Ausculation Bilateral, NORMAL BREATHING PATTERN - Cardiovascular Exam Cardiovascular Exam: REGULAR RHYTHM, +S1 - GI/Abdominal Exam GI & Abdominal Exam: Soft. absent: Tenderness - Extremities Exam Extremities Exam: Normal Inspection. 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
--- NOTE | 2017-02-08 21:00 | CP.PCM.PN ---
Subjective - Date & Time of Evaluation Date of Evaluation: 02/08/17 Time of Evaluation: 20:59 - Subjective Subjective: pt had intervention improved circulation pt is not willing to take plavix I advised her to take it to avoid the occlusion will repeat the labs will f/u Objective - Vital Signs/Intake and Output Vital Signs (last 24 hours): Temp Pulse Resp BP Pulse Ox 97.4 F L 63 20 138/74 97 02/08/17 18:24 02/08/17 18:24 02/08/17 18:24 02/08/17 18:24 02/08/17 18:24 Intake and Output: 02/08/17 02/09/17 18:59 06:59 Intake Total 0 Balance 0 - Medications Medications: Current Medications Amlodipine Besylate (Norvasc) 10 mg PO DAILY [facility] Last Admin: 02/08/17 11:30 Dose: Not Given Aspirin (Ecotrin) 81 mg PO DAILY [facility] Last Admin: 02/08/17 11:35 Dose: Not Given Calcium Acetate (Phoslo) 2,668 mg PO TIDCC [facility] Last Admin: 02/08/17 17:58 Dose: 2,668 mg Carvedilol (Coreg) 12.5 mg PO BID [facility] Last Admin: 02/08/17 17:58 Dose: 12.5 mg Clopidogrel Bisulfate (Plavix) 75 mg PO DAILY [facility] Collagenase (Santyl) 1 gm EXT DAILY [facility] Last Admin: 02/08/17 11:35 Dose: Not Given Epoetin Alec (Procrit) 10,000 unit SC MWF [facility] Last Admin: 02/08/17 09:30 Dose: Not Given Ferrous Sulfate (Feosol) 325 mg PO DAILY [facility] Last Admin: 02/08/17 11:35 Dose: Not Given Heparin Sodium (Porcine) (Heparin) 5,000 units SC Q12 [facility] Last Admin: 02/06/17 21:29 Dose: Not Given Insulin Glargine (Lantus) 20 unit SC HS [facility] Last Admin: 02/07/17 22:00 Dose: Not Given Insulin Human Regular (Novolin R) 0 unit SC ACHS [facility] PRN Reason: Protocol Last Admin: 02/08/17 17:55 Dose: Not Given Losartan Potassium (Cozaar) 100 mg PO DAILY@1800 [facility] Last Admin: 02/08/17 17:58 Dose: 100 mg Morphine Sulfate (Morphine) 2 mg IVP Q4 PRN PRN Reason: Pain, severe (8-10) Oxycodone/Acetaminophen (Percocet 5/325 Mg Tab) 1 tab PO Q4H PRN PRN Reason: Pain, moderate (4-7) Stop: 02/10/17 19:32 Rosuvastatin Calcium (Crestor) 10 mg PO HS [facility] Last Admin: 02/07/17 21:21 Dose: 10 mg - Labs Labs: 02/08/17 08:07 02/08/17 08:07 PT 10.8 SECONDS (9.7-12.2) 02/08/17 08:07 INR 1.0 02/08/17 08:07 APTT 34 SECONDS (21-34) 02/08/17 08:07
[2017-02-08] MEDS: (Lantus) Insulin Glargine, Recombinant SC SCH (22:47)
[2017-02-09] MEDS: (Novolin R) Insulin Human Regular 100 units/ml vial SC SCH ×4 (07:56→22:47)
--- NOTE | 2017-02-09 09:43 | CP.PCM.PN ---
Subjective - Date & Time of Evaluation Date of Evaluation: 02/09/17 Time of Evaluation: 09:37 - Subjective Subjective: Podiatry Progress Note- Dr. Oakley: 51 year old female was seen at bedside this morning regarding right foot gangrene. She is seen resting upright in bed at time of visit. She states that her right foot is painful and she does not wish to take off the dressing. Denies any n/v/f/c/sob/cp. Objective - Vital Signs/Intake and Output Vital Signs (last 24 hours): Temp Pulse Resp BP Pulse Ox 98.2 F 83 18 101/60 98 02/09/17 08:00 02/09/17 08:00 02/09/17 08:00 02/09/17 08:00 02/09/17 08:00 Intake and Output: 02/09/17 02/09/17 06:59 18:59 Intake Total 300 Balance 300 - Medications Medications: Current Medications Amlodipine Besylate (Norvasc) 10 mg PO DAILY [facility] Last Admin: 02/08/17 11:30 Dose: Not Given Aspirin (Ecotrin) 81 mg PO DAILY [facility] Last Admin: 02/08/17 11:35 Dose: Not Given Calcium Acetate (Phoslo) 2,668 mg PO TIDCC [facility] Last Admin: 02/09/17 08:45 Dose: 2,668 mg Carvedilol (Coreg) 12.5 mg PO BID [facility] Last Admin: 02/08/17 17:58 Dose: 12.5 mg Clopidogrel Bisulfate (Plavix) 75 mg PO DAILY [facility] Collagenase (Santyl) 1 gm EXT DAILY [facility] Last Admin: 02/08/17 11:35 Dose: Not Given Epoetin Alec (Procrit) 10,000 unit SC MWF [facility] Last Admin: 02/08/17 21:28 Dose: 10,000 unit Ferrous Sulfate (Feosol) 325 mg PO DAILY [facility] Last Admin: 02/08/17 21:27 Dose: 325 mg Heparin Sodium (Porcine) (Heparin) 5,000 units SC Q12 [facility] Last Admin: 02/06/17 21:29 Dose: Not Given Insulin Glargine (Lantus) 20 unit SC HS [facility] Last Admin: 02/08/17 22:47 Dose: 20 units Insulin Human Regular (Novolin R) 0 unit SC ACHS [facility] PRN Reason: Protocol Last Admin: 02/09/17 07:56 Dose: Not Given Losartan Potassium (Cozaar) 100 mg PO DAILY@1800 [facility] Last Admin: 02/08/17 17:58 Dose: 100 mg Morphine Sulfate (Morphine) 2 mg IVP Q4 PRN PRN Reason: Pain, severe (8-10) Last Admin: 02/09/17 06:56 Dose: 2 mg Oxycodone/Acetaminophen (Percocet 5/325 Mg Tab) 1 tab PO Q4H PRN PRN Reason: Pain, moderate (4-7) Stop: 02/10/17 19:32 Rosuvastatin Calcium (Crestor) 10 mg PO HS [facility] Last Admin: 02/08/17 21:27 Dose: 10 mg - Labs Labs: 02/08/17 08:07 02/08/17 08:07 PT 10.8 SECONDS (9.7-12.2) 02/08/17 08:07 INR 1.0 02/08/17 08:07 APTT 34 SECONDS (21-34) 02/08/17 08:07 - Constitutional Appears: Non-toxic, No Acute Distress - Extremities Exam Additional comments: Patient unwilling to have her dressing changed at bedside PT pulses was monophasic upon doppler examination DP unable to assess due to dressing - Neurological Exam Neurological Exam: Alert, Awake, Oriented x3 - Psychiatric Exam Psychiatric exam: Normal Affect, Normal Mood Assessment and Plan - Assessment and Plan (Free Text) Assessment: 51 year old female with 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 Oakley present Chart, labs and vitals reviewed: afebrile, WBC 9.1 Right foot x-ray (02/04/17): diffuse osteopenia, extensive vascular calcifications , no fractures or dislocations Dressing kept intact Patient to go for right [facility] Saturday with Dr. Oakley Podiatry will continue to follow patient while in house
[2017-02-09] MEDS: Collagenase 250 Units/gm Ointment(30 gm) EXT SCH (10:26)
--- NOTE | 2017-02-09 10:57 | CP.PCM.PN ---
Subjective - Date & Time of Evaluation Date of Evaluation: 02/09/17 Time of Evaluation: 10:54 - Subjective Subjective: detailed discussion with patient because of her refusal to take plavix based on a roll picker's ad she saw on tv i discussed tenuous position with newly implanted stents. eventually she agreed to comply with prescription leg clinically improved with pop pulse and good pedal doppler signals Objective - Vital Signs/Intake and Output Vital Signs (last 24 hours): Temp Pulse Resp BP Pulse Ox 98.2 F 83 18 101/60 98 02/09/17 08:00 02/09/17 08:00 02/09/17 08:00 02/09/17 10:31 02/09/17 08:00 Intake and Output: 02/09/17 02/09/17 06:59 18:59 Intake Total 300 Balance 300 - Medications Medications: Current Medications Amlodipine Besylate (Norvasc) 10 mg PO DAILY [facility] Last Admin: 02/09/17 10:30 Dose: Not Given Aspirin (Ecotrin) 81 mg PO DAILY [facility] Last Admin: 02/09/17 10:26 Dose: 81 mg Calcium Acetate (Phoslo) 2,668 mg PO TIDCC [facility] Last Admin: 02/09/17 08:45 Dose: 2,668 mg Carvedilol (Coreg) 12.5 mg PO BID [facility] Last Admin: 02/09/17 10:31 Dose: Not Given Clopidogrel Bisulfate (Plavix) 75 mg PO DAILY [facility] Last Admin: 02/09/17 10:32 Dose: Not Given Collagenase (Santyl) 1 gm EXT DAILY [facility] Last Admin: 02/09/17 10:26 Dose: 1 gm Epoetin Alec (Procrit) 10,000 unit SC MWF [facility] Last Admin: 02/08/17 21:28 Dose: 10,000 unit Ferrous Sulfate (Feosol) 325 mg PO DAILY [facility] Last Admin: 02/09/17 10:26 Dose: 325 mg Heparin Sodium (Porcine) (Heparin) 5,000 units SC Q12 [facility] Last Admin: 02/06/17 21:29 Dose: Not Given Insulin Glargine (Lantus) 20 unit SC HS [facility] Last Admin: 02/08/17 22:47 Dose: 20 units Insulin Human Regular (Novolin R) 0 unit SC ACHS [facility] PRN Reason: Protocol Last Admin: 02/09/17 07:56 Dose: Not Given Losartan Potassium (Cozaar) 100 mg PO DAILY@1800 [facility] Last Admin: 02/08/17 17:58 Dose: 100 mg Morphine Sulfate (Morphine) 2 mg IVP Q4 PRN PRN Reason: Pain, severe (8-10) Last Admin: 02/09/17 06:56 Dose: 2 mg Oxycodone/Acetaminophen (Percocet 5/325 Mg Tab) 1 tab PO Q4H PRN PRN Reason: Pain, moderate (4-7) Stop: 02/10/17 19:32 Rosuvastatin Calcium (Crestor) 10 mg PO HS [facility] Last Admin: 02/08/17 21:27 Dose: 10 mg - Labs Labs: 02/08/17 08:07 02/08/17 08:07 PT 10.8 SECONDS (9.7-12.2) 02/08/17 08:07 INR 1.0 02/08/17 08:07 APTT 34 SECONDS (21-34) 02/08/17 08:07
--- NOTE | 2017-02-09 11:35 | CP.PCM.PN ---
Subjective - Date & Time of Evaluation Date of Evaluation: 02/09/17 Time of Evaluation: 11:31 - Subjective Subjective: Notes reviewed Comfortable in bed Concerned about chronic wound No overnight events reported Tolerating pd well No pain currently Vascular eval noted No cp or palp, no sob or cough, no n/v/d no abd pain ROS negative other than stated above Objective - Vital Signs/Intake and Output Vital Signs (last 24 hours): Temp Pulse Resp BP Pulse Ox 98.2 F 83 18 101/60 98 02/09/17 08:00 02/09/17 08:00 02/09/17 08:00 02/09/17 10:31 02/09/17 08:00 Intake and Output: 02/09/17 02/09/17 06:59 18:59 Intake Total 300 Balance 300 - Medications Medications: Current Medications Amlodipine Besylate (Norvasc) 10 mg PO DAILY [facility] Last Admin: 02/09/17 10:30 Dose: Not Given Aspirin (Ecotrin) 81 mg PO DAILY [facility] Last Admin: 02/09/17 10:26 Dose: 81 mg Calcium Acetate (Phoslo) 2,668 mg PO TIDCC [facility] Last Admin: 02/09/17 08:45 Dose: 2,668 mg Carvedilol (Coreg) 12.5 mg PO BID [facility] Last Admin: 02/09/17 10:31 Dose: Not Given Clopidogrel Bisulfate (Plavix) 75 mg PO DAILY [facility] Last Admin: 02/09/17 10:32 Dose: Not Given Collagenase (Santyl) 1 gm EXT DAILY [facility] Last Admin: 02/09/17 10:26 Dose: 1 gm Epoetin Alec (Procrit) 10,000 unit SC MWF [facility] Last Admin: 02/08/17 21:28 Dose: 10,000 unit Ferrous Sulfate (Feosol) 325 mg PO DAILY [facility] Last Admin: 02/09/17 10:26 Dose: 325 mg Heparin Sodium (Porcine) (Heparin) 5,000 units SC Q12 [facility] Last Admin: 02/06/17 21:29 Dose: Not Given Insulin Glargine (Lantus) 20 unit SC HS [facility] Last Admin: 02/08/17 22:47 Dose: 20 units Insulin Human Regular (Novolin R) 0 unit SC ACHS [facility] PRN Reason: Protocol Last Admin: 02/09/17 07:56 Dose: Not Given Losartan Potassium (Cozaar) 100 mg PO DAILY@1800 [facility] Last Admin: 02/08/17 17:58 Dose: 100 mg Morphine Sulfate (Morphine) 2 mg IVP Q4 PRN PRN Reason: Pain, severe (8-10) Last Admin: 02/09/17 06:56 Dose: 2 mg Oxycodone/Acetaminophen (Percocet 5/325 Mg Tab) 1 tab PO Q4H PRN PRN Reason: Pain, moderate (4-7) Stop: 02/10/17 19:32 Rosuvastatin Calcium (Crestor) 10 mg PO HS [facility] Last Admin: 02/08/17 21:27 Dose: 10 mg - Labs Labs: 02/08/17 08:07 02/08/17 08:07 PT 10.8 SECONDS (9.7-12.2) 02/08/17 08:07 INR 1.0 02/08/17 08:07 APTT 34 SECONDS (21-34) 02/08/17 08:07 - Constitutional Appears: Well, Non-toxic - Head Exam Head Exam: ATRAUMATIC, NORMAL INSPECTION - Eye Exam Eye Exam: EOMI, Normal appearance - ENT Exam ENT Exam: Mucous Membranes Moist, Normal Oropharynx - Neck Exam Neck Exam: absent: Lymphadenopathy, Thyromegaly - Respiratory Exam Respiratory Exam: Clear to Ausculation Bilateral. absent: Rales, Rhonchi - Cardiovascular Exam Cardiovascular Exam: +S1, +S2. absent: Rubs - GI/Abdominal Exam GI & Abdominal Exam: Soft, Normal Bowel Sounds - Extremities Exam Extremities Exam: absent: Joint Swelling, Pedal Edema - Neurological Exam Neurological Exam: Alert, Awake, Oriented x3 Assessment and Plan (1) Gangrene of right foot Status: Acute (2) Anemia Status: Acute (3) Diabetes mellitus Status: Acute (4) ESRD on peritoneal dialysis Status: Acute (5) Hypertension Status: Acute - Assessment and Plan (Free Text) Assessment: Maintain pd regimen Volume status accpetable BP meds - caution for hypotension Vascular and podiatry care Encourage plavix use Continue current meds
[2017-02-09] MEDS: (Lantus) Insulin Glargine, Recombinant SC SCH (21:16)
--- NOTE | 2017-02-09 22:41 | VAS ---
OPERATIVE ANGIOGRAM REPORT DATE: 02/08/2017 PREOPERATIVE DIAGNOSES: Gangrene of right foot and stenosis of vein graft. PROCEDURE CARRIED OUT: 1. Aortofemoral angiogram via left groin with selective catheterization of right femoral artery. 2. Drug-coated balloon angioplasty of the proximal portion of the graft 3. deployment of two 5 mm X 40 and 60 stents in the proximal portion of the vein graft. SURGEON: Dr. Clark. MORTGAGE BROKER: None. ANESTHESIOLOGIST: Dr. Aldrich. ANESTHESIA: Local with sedation. INDICATIONS: The patient is a 51-year-old woman on dialysis, smoked, who has gangrene of the right foot and nonhealing gangrenous site. She was scheduled for transmetatarsal amputation. However, there was concern regarding her circulation and on evaluation,she was found to have high grade stenosis in the proximal portion of her previously placed vein graft. OPERATIVE FINDINGS: The aorta and renal arteries are free of significant occlusive disease. There is previously a stent in the left common iliac artery. On the left side, the superficial femoral artery was occluded first with groin and we reconstituted at the level above the knee. On the right side, had similar findings, but there is a tight 99% stenosis of the proximal portion of her vein grafts with the proximal 8 cm being irregular. Below this is a very clean and nice vein graft. Below this was adequate runoff via tibial vessels. PROCEDURE AND FINDINGS: Subsequent to the performance of the diagnostic arteriogram, a stiff-angled Glidewire was advanced over the aortic bifurcation and attempts were made with all the usual measures and maneuvers to advance a 6-Slovenian catheter over the aortic bifurcation. This was quite difficult, took a great deal of time. Eventually, we are able to place it approximately 2-inches into the common iliac and from this point, we are able to selectively cannulate the vein graft and then working [id number] balloon. This initially was a 4-mm balloon which had no appreciable luminal enlargement nonvisualization of the entire graft. So, at this point, I opted to deploy stents despite the problems associated with this to preserve the flow into the leg. Initially deployed a 5 x 60 balloon, I did not post dilate it and then we deployed another one more distally to encompass the entire proximal vessel that was somewhat stenotic. After this have been done, we then applied pressure to the groin. We did not use a closure device. We terminated the procedure. Blood loss was less than 50 mL. Operation carried out was aortofemoral angiogram via left groin with selective catheterization of right femoral artery, drug-coated balloon of the proximal vein graft stenosis and a subsequent deployment of a 5-mm Innova 2 stent at the proximal portion of the greater saphenous vein, femoral popliteal bypass graft. Harman Clark Jr., MD cc: STEFANIA Cortez MD [facility] # [id number] MTDD
[2017-02-10] MEDS: (Novolin R) Insulin Human Regular 100 units/ml vial SC SCH ×4 (07:50→21:24)
[2017-02-10 08:17] LABS: BASO # 0.1 K/uL (0.0-0.2); BASO % 0.8 % (0.0-2.0); EOS # 0.1 K/uL (0.0-0.7); EOS % 1.5 % (0.0-4.0); HEMATOCRIT 23.6 % (34.0-47.0); LYMPH # 1.8 K/uL (1.0-4.3); LYMPH % 17.9 % (20.0-40.0); MEAN CORPUSCULAR HEMOGLOBIN 30.2 pg (27.0-31.0); MEAN CORPUSCULAR HGB CONC 33.5 g/dL (33.0-37.0); MEAN PLATELET VOLUME 8.2 fL (7.2-11.7); MONO # 0.9 K/uL (0.0-0.8); MONO % 8.8 % (0.0-10.0); RED CELL DISTRIBUTION WIDTH 16.3 % (11.5-14.5)
[2017-02-10 08:23] LABS: POTASSIUM 4.4 mmol/L (3.6-5.2)
[2017-02-10 08:25] LABS: BILIRUBIN,TOTAL 0.3 mg/dL (0.2-1.3); TOTAL PROTEIN 6.4 g/dL (6.3-8.3)
[2017-02-10 08:26] LABS: CALCIUM 9.6 mg/dl (8.6-10.4)
[2017-02-10] MEDS: Collagenase 250 Units/gm Ointment(30 gm) EXT SCH (10:00)
--- NOTE | 2017-02-10 19:12 | CP.PCM.PN ---
Subjective - Date & Time of Evaluation Date of Evaluation: 02/10/17 Time of Evaluation: 19:00 - Subjective Subjective: Surgery Progress Note. Dr. Clark Pt seen and evaluated at bedside. Patient c/o left groin dressing itching. Denies any other complaints. No F/C. No CP/SOB. No headaches. No N/V/D. Tolerating diet. Objective - Vital Signs/Intake and Output Vital Signs (last 24 hours): Temp Pulse Resp BP Pulse Ox 97.9 F 79 20 128/74 98 02/10/17 15:00 02/10/17 15:00 02/10/17 15:00 02/10/17 15:00 02/10/17 15:00 Intake and Output: 02/10/17 02/11/17 18:59 06:59 Intake Total 600 Balance 600 - Medications Medications: Current Medications Amlodipine Besylate (Norvasc) 10 mg PO DAILY [facility] Last Admin: 02/10/17 09:37 Dose: 10 mg Aspirin (Ecotrin) 81 mg PO DAILY [facility] Last Admin: 02/10/17 09:37 Dose: 81 mg Calcium Acetate (Phoslo) 2,668 mg PO TIDCC [facility] Last Admin: 02/10/17 17:03 Dose: 2,668 mg Carvedilol (Coreg) 12.5 mg PO BID [facility] Last Admin: 02/10/17 09:37 Dose: 12.5 mg Clopidogrel Bisulfate (Plavix) 75 mg PO DAILY [facility] Last Admin: 02/10/17 09:36 Dose: 75 mg Collagenase (Santyl) 1 gm EXT DAILY [facility] Last Admin: 02/10/17 10:00 Dose: 1 gm Epoetin Alec (Procrit) 10,000 unit SC MWF [facility] Last Admin: 02/08/17 21:28 Dose: 10,000 unit Ferrous Sulfate (Feosol) 325 mg PO DAILY [facility] Last Admin: 02/10/17 09:36 Dose: 325 mg Heparin Sodium (Porcine) (Heparin) 5,000 units SC Q12 [facility] Last Admin: 02/10/17 09:40 Dose: Not Given Insulin Glargine (Lantus) 20 unit SC HS [facility] Last Admin: 02/09/17 21:16 Dose: 20 units Insulin Human Regular (Novolin R) 0 unit SC ACHS [facility] PRN Reason: Protocol Last Admin: 02/10/17 17:03 Dose: 1 unit Losartan Potassium (Cozaar) 100 mg PO DAILY@1800 [facility] Last Admin: 02/09/17 17:58 Dose: 100 mg Morphine Sulfate (Morphine) 2 mg IVP Q4 PRN PRN Reason: Pain, severe (8-10) Last Admin: 02/10/17 17:03 Dose: 2 mg Oxycodone/Acetaminophen (Percocet 5/325 Mg Tab) 1 tab PO Q4H PRN PRN Reason: Pain, moderate (4-7) Stop: 02/10/17 19:32 Rosuvastatin Calcium (Crestor) 10 mg PO HS [facility] Last Admin: 02/09/17 21:16 Dose: 10 mg - Labs Labs: 02/10/17 08:12 02/10/17 08:12 PT 10.8 SECONDS (9.7-12.2) 02/08/17 08:07 INR 1.0 02/08/17 08:07 APTT 34 SECONDS (21-34) 02/08/17 08:07 - Constitutional Appears: Well, No Acute Distress - Head Exam Head Exam: ATRAUMATIC, NORMAL INSPECTION, NORMOCEPHALIC - Eye Exam Eye Exam: EOMI, Normal appearance - ENT Exam ENT Exam: Mucous Membranes Moist - Neck Exam Neck Exam: Full ROM - Respiratory Exam Respiratory Exam: Clear to Ausculation Bilateral, NORMAL BREATHING PATTERN. absent: Rales, Rhonchi, Wheezes, Respiratory Distress - Cardiovascular Exam Cardiovascular Exam: RRR. absent: JVD - GI/Abdominal Exam GI & Abdominal Exam: Soft. absent: Distended, Firm, Guarding, Rigid, Tenderness - Extremities Exam Additional comments: Distal DP/PT pulses intact bilaterally. No Poikilothermia noted. Left groin dressing, clean, dry and intact. - Neurological Exam Neurological Exam: Alert, Awake, Oriented x3 - Skin Skin Exam: Dry, Intact, Normal Color, Warm Assessment and Plan - Assessment and Plan (Free Text) Assessment: 51yo F with gangrene of Right Foot. S/p Right Leg Cath with stent via left groin access. - Continue Plavix. Encourage uninterrupted Plavix use daily - Left groin dressing removed. No ozzing at puncture site noted. No hematoma - F/U podiatry recs. Noted Plan for TMA with Dr. Ordonez next week - continue to medically optimize - Right Foot wound care Discussed case with Dr. Eduardo Blanco PGY1 surgery pager: [phone]
[2017-02-10] MEDS: (Lantus) Insulin Glargine, Recombinant SC SCH (21:14)
[2017-02-11] MEDS: (Novolin R) Insulin Human Regular 100 units/ml vial SC SCH ×3 (09:08→21:41)
[2017-02-11] MEDS: Collagenase 250 Units/gm Ointment(30 gm) EXT SCH (09:09)
[2017-02-11] MEDS: EPOETIN ALFA 10,000 UNIT/ML ML SC SCH (09:10)
[2017-02-11] MEDS ORDERED: EPOETIN ALFA 10,000 UNIT/ML ML SC SCH (10:00)
--- NOTE | 2017-02-11 12:01 | RAD ---
PROCEDURE: Date of procedure: 02/08/2017 Procedure: 1. Placement of a right arm PICC with ultrasound and fluoroscopic guidance, CPT 91480 2. PICC tip confirmation with spot radiograph and is in the superior vena cava Medications: 1 percent lidocaine Total Fluoro time: 12.2 seconds Radiation: 4.8 MGy EBL: 2 cc HISTORY: Infection requiring long-term IV antibiotics TECHNIQUE: Following informed consent and procedure time-out, the patient was placed supine on the interventional table and the right arm prepped and draped in the usual sterile fashion. Ultrasound showed a patent and compressible right basilic vein. After the skin was anesthetized with lidocaine, the basilic vein was accessed with micro micropuncture technique using ultrasound guidance. A guidewire was then advanced under fluoroscopic guidance into the superior vena cava. An image documenting ultrasound guidance for vascular access was permanently saved. The length of the single-lumen 4 [place] PICC was trimmed to 35 centimeters and advanced through a peel-away sheath. The PICC was position with tip of PICC confirm a spot radiograph the superior vena cava. The PICC was secured to the patient's skin. The PICC was flushed. A biopatch and sterile dressing was applied. IMPRESSION: Placement of a single-lumen 4 [place] PICC trimmed to 5 centimeters via right basilic vein. The tip of the PICC is confirmed with spot radiograph and is in the superior vena cava.
--- NOTE | 2017-02-11 13:28 | CP.PCM.PN ---
Subjective - Date & Time of Evaluation Date of Evaluation: 02/11/17 Time of Evaluation: 13:25 - Subjective Subjective: Feels better, s/p, stent placement Started on plavix BP controlled PD going well No f, chills, n, v, CPs Objective - Vital Signs/Intake and Output Vital Signs (last 24 hours): Temp Pulse Resp BP Pulse Ox 98.3 F 82 20 144/64 97 02/11/17 08:00 02/11/17 08:00 02/11/17 08:00 02/11/17 09:12 02/11/17 08:00 Intake and Output: 02/11/17 02/11/17 06:59 18:59 Intake Total 500 Balance 500 - Medications Medications: Current Medications Amlodipine Besylate (Norvasc) 10 mg PO DAILY [facility] Last Admin: 02/11/17 09:10 Dose: 10 mg Aspirin (Ecotrin) 81 mg PO DAILY [facility] Last Admin: 02/11/17 09:10 Dose: 81 mg Calcium Acetate (Phoslo) 2,668 mg PO TIDCC [facility] Last Admin: 02/11/17 13:06 Dose: 2,668 mg Carvedilol (Coreg) 12.5 mg PO BID [facility] Last Admin: 02/11/17 09:12 Dose: 12.5 mg Clopidogrel Bisulfate (Plavix) 75 mg PO DAILY [facility] Last Admin: 02/11/17 09:10 Dose: 75 mg Collagenase (Santyl) 1 gm EXT DAILY [facility] Last Admin: 02/11/17 09:09 Dose: 1 applic Epoetin Alec (Procrit) 10,000 unit SC MWF [facility] Last Admin: 02/11/17 09:10 Dose: 10,000 unit Ferrous Sulfate (Feosol) 325 mg PO DAILY [facility] Last Admin: 02/11/17 09:10 Dose: 325 mg Heparin Sodium (Porcine) (Heparin) 5,000 units SC Q12 [facility] Last Admin: 02/11/17 09:09 Dose: 5,000 units Insulin Glargine (Lantus) 20 unit SC HS [facility] Last Admin: 02/10/17 21:14 Dose: 20 units Insulin Human Regular (Novolin R) 0 unit SC ACHS [facility] PRN Reason: Protocol Last Admin: 02/11/17 09:08 Dose: 1 unit Losartan Potassium (Cozaar) 100 mg PO DAILY@1800 [facility] Last Admin: 02/10/17 19:33 Dose: Not Given Morphine Sulfate (Morphine) 2 mg IVP Q4 PRN PRN Reason: Pain, severe (8-10) Last Admin: 02/11/17 07:31 Dose: 2 mg Rosuvastatin Calcium (Crestor) 10 mg PO HS [facility] Last Admin: 02/10/17 21:12 Dose: 10 mg - Labs Labs: 02/10/17 08:12 02/10/17 08:12 PT 10.8 SECONDS (9.7-12.2) 02/08/17 08:07 INR 1.0 02/08/17 08:07 APTT 34 SECONDS (21-34) 02/08/17 08:07 - Constitutional Appears: No Acute Distress, Chronically Ill - Head Exam Head Exam: ATRAUMATIC, NORMAL INSPECTION - Eye Exam Eye Exam: EOMI, Normal appearance - Neck Exam Neck Exam: Normal Inspection. absent: Tenderness - Respiratory Exam Respiratory Exam: Clear to Ausculation Bilateral, NORMAL BREATHING PATTERN - Cardiovascular Exam Cardiovascular Exam: REGULAR RHYTHM, +S1 - GI/Abdominal Exam GI & Abdominal Exam: Soft. absent: Tenderness - Extremities Exam Extremities Exam: Calf Tenderness, Tenderness - Neurological Exam Neurological Exam: Awake, CN II-XII Intact - Skin Skin Exam: Dry, Warm Assessment and Plan (1) Type 1 diabetes mellitus with diabetic nephropathy Status: Acute (2) Gangrene of right foot Status: Acute (3) End stage renal disease Status: Acute - Assessment and Plan (Free Text) Plan: SAme PD Monitor BP AWait TMA
--- NOTE | 2017-02-11 14:00 | CP.PCM.PN ---
Subjective - Date & Time of Evaluation Date of Evaluation: 02/11/17 Time of Evaluation: 15:00 - Subjective Subjective: Pt seen and evaluated at bedside. Pt seen resting in bed at time of visit. Does complain of some slight tenderness to her foot today. Says that she is aware for plan for surgery tomorrow morning with Dr. Oakley. Objective - Vital Signs/Intake and Output Vital Signs (last 24 hours): Temp Pulse Resp BP Pulse Ox 98.3 F 82 20 144/64 97 02/11/17 08:00 02/11/17 08:00 02/11/17 08:00 02/11/17 09:12 02/11/17 08:00 Intake and Output: 02/11/17 02/11/17 06:59 18:59 Intake Total 500 Balance 500 - Medications Medications: Current Medications Amlodipine Besylate (Norvasc) 10 mg PO DAILY [facility] Last Admin: 02/11/17 09:10 Dose: 10 mg Aspirin (Ecotrin) 81 mg PO DAILY [facility] Last Admin: 02/11/17 09:10 Dose: 81 mg Calcium Acetate (Phoslo) 2,668 mg PO TIDCC [facility] Last Admin: 02/11/17 13:06 Dose: 2,668 mg Carvedilol (Coreg) 12.5 mg PO BID [facility] Last Admin: 02/11/17 09:12 Dose: 12.5 mg Clopidogrel Bisulfate (Plavix) 75 mg PO DAILY [facility] Last Admin: 02/11/17 09:10 Dose: 75 mg Collagenase (Santyl) 1 gm EXT DAILY [facility] Last Admin: 02/11/17 09:09 Dose: 1 applic Epoetin Alec (Procrit) 10,000 unit SC MWF [facility] Last Admin: 02/11/17 09:10 Dose: 10,000 unit Ferrous Sulfate (Feosol) 325 mg PO DAILY [facility] Last Admin: 02/11/17 09:10 Dose: 325 mg Heparin Sodium (Porcine) (Heparin) 5,000 units SC Q12 [facility] Last Admin: 02/11/17 09:09 Dose: 5,000 units Insulin Glargine (Lantus) 20 unit SC HS [facility] Last Admin: 02/10/17 21:14 Dose: 20 units Insulin Human Regular (Novolin R) 0 unit SC ACHS [facility] PRN Reason: Protocol Last Admin: 02/11/17 09:08 Dose: 1 unit Losartan Potassium (Cozaar) 100 mg PO DAILY@1800 [facility] Last Admin: 02/10/17 19:33 Dose: Not Given Morphine Sulfate (Morphine) 2 mg IVP Q4 PRN PRN Reason: Pain, severe (8-10) Last Admin: 02/11/17 07:31 Dose: 2 mg Rosuvastatin Calcium (Crestor) 10 mg PO HS [facility] Last Admin: 02/10/17 21:12 Dose: 10 mg - Labs Labs: 02/10/17 08:12 02/10/17 08:12 PT 10.8 SECONDS (9.7-12.2) 02/08/17 08:07 INR 1.0 02/08/17 08:07 APTT 34 SECONDS (21-34) 02/08/17 08:07 - Constitutional Appears: Non-toxic, No Acute Distress - Extremities Exam Additional comments: Dressing to right foot c/d/i and left intact - Neurological Exam Neurological Exam: Alert, Awake, Oriented x3 - Psychiatric Exam Psychiatric exam: Normal Affect, Normal Mood Assessment and Plan - Assessment and Plan (Free Text) Assessment: 51 year old female with dry gangrene of right midfoot and forefoot secondary to PVD Plan: Patient S&E at bedside Discussed with Dr. Oakley present Chart, labs and vitals reviewed: afebrile, wbc 10, H/H 7.9/23.6 Discussed w/ pt plan for OR tomorrow 02/12 @ 10:30 AM w/ Dr. Oakley for right TMA All questions and concerns addressed with patient at length Pt is 3 days s/p stent placement: per vascular team must remain on Plavix and ASA (heparin to be held) Type and Screen and Type and Cross ordered (potential for increased bleeding in surgery is elevated) Dressing to right foot kept c/d/i. NPO after midnight tonight. Podiatry will follow.
--- NOTE | 2017-02-11 19:59 | CP.PCM.PN ---
Subjective - Date & Time of Evaluation Date of Evaluation: 02/11/17 Time of Evaluation: 19:59 - Subjective Subjective: Spoke to the patient in details about the procedure in details. Yesterday I also spoke multiple times about the importance of the Plavix. Patient is always asking multiple questions about medications. And she is reluctant to take most of the medications. She is undergoing regular dialysis. Complaining of pain. Currently patient is agreeing for forefoot amputation. Possibly in the morning. Patient is medically otherwise stable at this time. Objective - Vital Signs/Intake and Output Vital Signs (last 24 hours): Temp Pulse Resp BP Pulse Ox 97.8 F 84 20 148/76 96 02/11/17 16:00 02/11/17 16:00 02/11/17 16:00 02/11/17 18:38 02/11/17 16:00 - Medications Medications: Current Medications Amlodipine Besylate (Norvasc) 10 mg PO DAILY [facility] Last Admin: 02/11/17 09:10 Dose: 10 mg Aspirin (Ecotrin) 81 mg PO DAILY [facility] Last Admin: 02/11/17 09:10 Dose: 81 mg Calcium Acetate (Phoslo) 2,668 mg PO TIDCC [facility] Last Admin: 02/11/17 18:37 Dose: 2,668 mg Carvedilol (Coreg) 12.5 mg PO BID [facility] Last Admin: 02/11/17 18:38 Dose: 12.5 mg Clopidogrel Bisulfate (Plavix) 75 mg PO DAILY [facility] Last Admin: 02/11/17 09:10 Dose: 75 mg Collagenase (Santyl) 1 gm EXT DAILY [facility] Last Admin: 02/11/17 09:09 Dose: 1 applic Epoetin Alec (Procrit) 10,000 unit SC MWF [facility] Last Admin: 02/11/17 09:10 Dose: 10,000 unit Ferrous Sulfate (Feosol) 325 mg PO DAILY [facility] Last Admin: 02/11/17 09:10 Dose: 325 mg Heparin Sodium (Porcine) (Heparin) 5,000 units SC Q12 [facility] Last Admin: 02/11/17 09:09 Dose: 5,000 units Insulin Glargine (Lantus) 20 unit SC HS [facility] Last Admin: 02/10/17 21:14 Dose: 20 units Insulin Human Regular (Novolin R) 0 unit SC ACHS [facility] PRN Reason: Protocol Last Admin: 02/11/17 17:14 Dose: Not Given Losartan Potassium (Cozaar) 100 mg PO DAILY@1800 [facility] Last Admin: 02/10/17 19:33 Dose: Not Given Morphine Sulfate (Morphine) 2 mg IVP Q4 PRN PRN Reason: Pain, severe (8-10) Last Admin: 02/11/17 07:31 Dose: 2 mg Rosuvastatin Calcium (Crestor) 10 mg PO HS [facility] Last Admin: 02/10/17 21:12 Dose: 10 mg - Labs Labs: 02/10/17 08:12 02/10/17 08:12 PT 10.8 SECONDS (9.7-12.2) 02/08/17 08:07 INR 1.0 02/08/17 08:07 APTT 34 SECONDS (21-34) 02/08/17 08:07
[2017-02-11] MEDS: (Lantus) Insulin Glargine, Recombinant SC SCH (21:01)
[2017-02-12 07:26] LABS: HEMATOCRIT 23.3 % (34.0-47.0); MEAN CELL VOLUME 91.7 fL (81.0-99.0); MEAN CORPUSCULAR HEMOGLOBIN 30.9 pg (27.0-31.0); MEAN CORPUSCULAR HGB CONC 33.7 g/dL (33.0-37.0); MEAN PLATELET VOLUME 8.2 fL (7.2-11.7); RED CELL DISTRIBUTION WIDTH 16.5 % (11.5-14.5); WHITE BLOOD COUNT 8.7 K/uL (4.8-10.8)
[2017-02-12] MEDS ORDERED: Lidocaine 2% Inj (20ml) ONE (07:26)
[2017-02-12 08:01] LABS: POTASSIUM 4.7 mmol/L (3.6-5.2)
[2017-02-12 08:04] LABS: CALCIUM 9.6 mg/dl (8.6-10.4)
[2017-02-12] MEDS: (Novolin R) Insulin Human Regular 100 units/ml vial SC SCH ×4 (08:08→21:43)
[2017-02-12] MEDS ORDERED: Bacitracin 150,000 UNIT in Sodium Chloride 0.9% Irrig 3,000 ML IR SCH (10:00)
[2017-02-12] MEDS ORDERED: ceFAZolin IV 2 gm in Dextrose 1 GM/50 ML BAG IVPB ONE (10:45)
[2017-02-12] MEDS ORDERED: Sodium Chloride 0.9% 500 ML IV ONE (11:00)
[2017-02-12] MEDS ORDERED: Midazolam 2 MG/2 ML VIAL ONE (11:08)
[2017-02-12] MEDS ORDERED: Propofol 10 mg/ml Inj (20 ML) ONE (11:08)
[2017-02-12] MEDS: Collagenase 250 Units/gm Ointment(30 gm) EXT SCH (11:45)
[2017-02-12] MEDS: Bupivacaine 0.5% Inj(30mL) ONE ×2 (11:52→12:35)
[2017-02-12] MEDS ORDERED: Bupivacaine HCl 0.5% PF (10 ml) Inj ONE (12:13)
[2017-02-12] MEDS ORDERED: HYDROmorphone 0.5 mg/0.5 ml ISec IVP PRN ×2 (13:07→21:33)
--- NOTE | 2017-02-12 13:10 | PCM.SURG1 ---
Surgeon's Initial Post Op Note - Surgeon's Notes Surgeon: Dr. Ordonez Vacuum Furnace Operator: Dr. Lassiter PGY2, Dr. Perdomo PGY-1 Type of Anesthesia: MAC, Local Anesthesia Administered By: Dr. Cerna Pre-Operative Diagnosis: right forefoot gangrene Operative Findings: see operative report Post-Operative Diagnosis: same Operation Performed: right foot transmetatarsal amputation Specimen/Specimens Removed: bone and soft tissue Estimated Blood Loss: EBL {In ML}: 100 Blood Products Given: N/A Drains Used: Ang Post-Op Condition: Good Date of Surgery/Procedure: 02/12/17 Time of Surgery/Procedure: 11:00
[2017-02-12] MEDS ORDERED: Oxycodone/Acetaminophen 5/325 mg Tab PO PRN ×2 (13:13→15:07)
[2017-02-12 13:52] LABS: HEMATOCRIT 22.4 % (34.0-47.0)
[2017-02-12] MEDS ORDERED: Morphine 4 MG/ML VIAL IV SCH (16:00)
--- NOTE | 2017-02-12 16:52 | RAD ---
PROCEDURE: Right Foot Radiographs. HISTORY: s/p right transmetatarsal amputation COMPARISON: None. FINDINGS: BONES: There is right transmetatarsal amputation suggested. And corresponding expected recent soft tissue changes associated with this. There is apparent drain in the center on the lateral view and on the oblique or frontal projection as well. The remaining tarsal bones present no gross periosteal reaction seen. No subcutaneous-is emphysema appreciated. There are sclerotic vascular calcifications and reticulated edema are present. JOINTS: As above SOFT TISSUES: As above OTHER FINDINGS: As above IMPRESSION: Status post right transmetatarsal amputation - recent status inferred with drain in place
[2017-02-12] MEDS ORDERED: HYDROmorphone 0.5 mg/0.5 ml ISec IVP ONE (18:42)
--- NOTE | 2017-02-12 19:39 | CP.PCM.PN ---
Subjective - Date & Time of Evaluation Date of Evaluation: 02/12/17 Time of Evaluation: 19:33 - Subjective Subjective: Patient underwent the forefoot metatarsal amputation. Complaining of increasing pain. Motrin is not helping. Diludid0.5 mg given. Anemia, renal insufficiency, diabetes, hypertension. Peripheral vascular disease. Status post multiple intervention. Continue to monitor closely. Will follow the patient Objective - Vital Signs/Intake and Output Vital Signs (last 24 hours): Temp Pulse Resp BP Pulse Ox 97.5 F L 78 18 107/64 97 02/12/17 16:00 02/12/17 16:00 02/12/17 16:00 02/12/17 18:20 02/12/17 16:00 Intake and Output: 02/12/17 02/13/17 18:59 06:59 Intake Total 120 Balance 120 - Medications Medications: Current Medications Acetaminophen (Tylenol 325mg Tab) 650 mg PO Q6 PRN PRN Reason: Pain, Mild (1-3) Amlodipine Besylate (Norvasc) 10 mg PO DAILY [facility] Last Admin: 02/12/17 11:44 Dose: Not Given Aspirin (Ecotrin) 81 mg PO DAILY [facility] Last Admin: 02/12/17 11:44 Dose: Not Given Calcium Acetate (Phoslo) 2,668 mg PO TIDCC [facility] Last Admin: 02/12/17 16:22 Dose: 2,668 mg Carvedilol (Coreg) 12.5 mg PO BID [facility] Last Admin: 02/12/17 18:20 Dose: Not Given Clopidogrel Bisulfate (Plavix) 75 mg PO DAILY [facility] Last Admin: 02/12/17 11:45 Dose: Not Given Collagenase (Santyl) 1 gm EXT DAILY [facility] Last Admin: 02/12/17 11:45 Dose: Not Given Diphenhydramine HCl (Benadryl) 25 mg IVP Q6 PRN PRN Reason: Itching / Pruritus Epoetin Alec (Procrit) 10,000 unit SC MWF [facility] Last Admin: 02/11/17 09:10 Dose: 10,000 unit Ferrous Sulfate (Feosol) 325 mg PO DAILY [facility] Last Admin: 02/12/17 11:44 Dose: Not Given Heparin Sodium (Porcine) (Heparin) 5,000 units SC Q12 [facility] Last Admin: 02/11/17 09:09 Dose: 5,000 units Insulin Glargine (Lantus) 20 unit SC [facility] Last Admin: 02/11/17 21:01 Dose: 20 units Insulin Human Regular (Novolin R) 0 unit SC [facility] PRN Reason: Protocol Last Admin: 02/12/17 18:03 Dose: Not Given Losartan Potassium (Cozaar) 100 mg PO DAILY@1800 [facility] Last Admin: 02/12/17 18:20 Dose: Not Given Morphine Sulfate (Morphine) 2 mg IV Q4 PRN PRN Reason: Pain, severe (8-10) Morphine Sulfate (Morphine) 2 mg IVP Q4 PRN PRN Reason: Pain, moderate (4-7) Ondansetron HCl (Zofran Inj) 4 mg IVP Q8H PRN PRN Reason: Nausea/Vomiting Oxycodone/Acetaminophen (Percocet 5/325 Mg Tab) 2 tab PO Q4H PRN PRN Reason: Pain, severe (8-10) Stop: 02/15/17 15:08 Rosuvastatin Calcium (Crestor) 10 mg PO [facility] Last Admin: 02/11/17 21:01 Dose: 10 mg - Labs Labs: 02/12/17 13:42 02/12/17 07:14 PT 11.1 SECONDS (9.7-12.2) 02/12/17 07:14 INR 1.0 02/12/17 07:14 APTT 32 SECONDS (21-34) 02/12/17 07:14
[2017-02-12] MEDS ORDERED: HYDROmorphone 0.5 mg/0.5 ml ISec IVP STA (21:34)
[2017-02-12] MEDS: (Lantus) Insulin Glargine, Recombinant SC SCH (21:41)
[2017-02-13] MEDS: HYDROmorphone 0.5 mg/0.5 ml ISec IVP PRN ×5 (00:20→14:12)
[2017-02-13 07:51] LABS: BASO # 0.1 K/uL (0.0-0.2); BASO % 0.4 % (0.0-2.0); EOS % 0.2 % (0.0-4.0); HEMATOCRIT 22.5 % (34.0-47.0); LYMPH # 1.6 K/uL (1.0-4.3); MEAN CELL VOLUME 93.2 fL (81.0-99.0); MEAN CORPUSCULAR HEMOGLOBIN 30.2 pg (27.0-31.0); MEAN CORPUSCULAR HGB CONC 32.4 g/dL (33.0-37.0); MEAN PLATELET VOLUME 8.2 fL (7.2-11.7); MONO # 1.1 K/uL (0.0-0.8); MONO % 6.8 % (0.0-10.0); NRBC % 0.1 % (0.0-2.0); RED CELL DISTRIBUTION WIDTH 16.4 % (11.5-14.5); WHITE BLOOD COUNT 15.9 K/uL (4.8-10.8)
[2017-02-13] MEDS: (Novolin R) Insulin Human Regular 100 units/ml vial SC SCH ×5 (08:00→22:09)
[2017-02-13 08:15] LABS: POTASSIUM 4.8 mmol/L (3.6-5.2)
[2017-02-13 08:17] LABS: ALB/GLOB RATIO 1.1 (1.0-2.1); BILIRUBIN,TOTAL 0.4 mg/dL (0.2-1.3); TOTAL PROTEIN 6.8 g/dL (6.3-8.3)
[2017-02-13 08:18] LABS: CALCIUM 9.3 mg/dl (8.6-10.4)
--- NOTE | 2017-02-13 09:24 | CP.PCM.PN ---
Subjective - Date & Time of Evaluation Date of Evaluation: 02/13/17 Time of Evaluation: 09:30 - Subjective Subjective: Podiatry progress note- Dr. Ordonez: 51 yo female patient seen at bedside this morning 1 day s/p right foot TMA. Pt seen resting in bed at time of visit with right foot elevated on pillows. Pt appears quite lethargic at this time dozing on and off during conversation. Says she is in a lot of pain to the right foot and feels nervous. Denies f/n/v/c /sob/cp. 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 Says pain meds are only helping slightly. Denies any other problems at this time. Objective - Vital Signs/Intake and Output Vital Signs (last 24 hours): Temp Pulse Resp BP Pulse Ox 98.7 F 92 H 20 137/79 95 02/13/17 08:07 02/13/17 08:07 02/13/17 08:07 02/13/17 08:07 02/13/17 08:07 Intake and Output: 02/13/17 02/13/17 06:59 18:59 Intake Total 640 Balance 640 - Medications Medications: Current Medications Acetaminophen (Tylenol 325mg Tab) 650 mg PO Q6 PRN PRN Reason: Pain, Mild (1-3) Amlodipine Besylate (Norvasc) 10 mg PO DAILY [facility] Last Admin: 02/12/17 11:44 Dose: Not Given Aspirin (Ecotrin) 81 mg PO DAILY [facility] Last Admin: 02/12/17 11:44 Dose: Not Given Calcium Acetate (Phoslo) 2,668 mg PO TIDCC [facility] Last Admin: 02/12/17 16:22 Dose: 2,668 mg Carvedilol (Coreg) 12.5 mg PO BID [facility] Last Admin: 02/12/17 18:20 Dose: Not Given Clopidogrel Bisulfate (Plavix) 75 mg PO DAILY [facility] Last Admin: 02/12/17 11:45 Dose: Not Given Collagenase (Santyl) 1 gm EXT DAILY [facility] Last Admin: 02/12/17 11:45 Dose: Not Given Diphenhydramine HCl (Benadryl) 25 mg IVP Q6 PRN PRN Reason: Itching / Pruritus Epoetin Alec (Procrit) 10,000 unit SC MWF [facility] Last Admin: 02/11/17 09:10 Dose: 10,000 unit Ferrous Sulfate (Feosol) 325 mg PO DAILY [facility] Last Admin: 02/12/17 11:44 Dose: Not Given Heparin Sodium (Porcine) (Heparin) 5,000 units SC Q12 [facility] Last Admin: 02/11/17 09:09 Dose: 5,000 units Hydromorphone HCl (Dilaudid) 0.5 mg IVP Q3H PRN PRN Reason: Pain, severe (8-10) Last Admin: 02/13/17 06:40 Dose: 0.5 mg Insulin Glargine (Lantus) 20 unit SC HS [facility] Last Admin: 02/12/17 21:41 Dose: 20 units Insulin Human Regular (Novolin R) 0 unit SC ACHS [facility] PRN Reason: Protocol Last Admin: 02/12/17 21:43 Dose: Not Given Losartan Potassium (Cozaar) 100 mg PO DAILY@1800 [facility] Last Admin: 02/12/17 18:20 Dose: Not Given Morphine Sulfate (Morphine) 2 mg IV Q4 PRN PRN Reason: Pain, severe (8-10) Morphine Sulfate (Morphine) 2 mg IVP Q4 PRN PRN Reason: Pain, moderate (4-7) Ondansetron HCl (Zofran Inj) 4 mg IVP Q8H PRN PRN Reason: Nausea/Vomiting Oxycodone/Acetaminophen (Percocet 5/325 Mg Tab) 2 tab PO Q4H PRN PRN Reason: Pain, severe (8-10) Stop: 02/15/17 15:08 Rosuvastatin Calcium (Crestor) 10 mg PO [facility] Last Admin: 02/12/17 21:41 Dose: 10 mg - Labs Labs: 02/13/17 07:35 02/13/17 07:35 PT 11.1 SECONDS (9.7-12.2) 02/12/17 07:14 INR 1.0 02/12/17 07:14 APTT 32 SECONDS (21-34) 02/12/17 07:14 - Constitutional Appears: No Acute Distress - Extremities Exam Additional comments: Right foot dressing appears c/d/i w/ no strikethrough evident. 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 Ordonez in detail Chart labs and vitals reviewed: afebrile, WBC is elevated (15.9) most likely secondary to post-surgical inflammatory changes Pt had refused antibiotics previously, will monitor WBC Dressing left c/d/i, to be changed by podiatry tomorrow c/w IV pain meds (Dilaudid and morphine per primary) Continue with NWB right foot and complete bedrest for now Stable per podiatry Will follow closely.
[2017-02-13] MEDS: Collagenase 250 Units/gm Ointment(30 gm) EXT SCH ×2 (10:30→10:43)
--- NOTE | 2017-02-13 15:44 | PCM.PSYCH ---
Initial Psychiatric Evaluation - Initial Psychiatric Evaluation Type of Admission: Voluntary Legal Status: Capacity Chief Complaint (in patient's own words): Psych consult called to r/o depression/anxiety s/p right foot amputation History of Present Illness and Precipitating Events: Patient is a 51 year old female, single with 3 sons, who is currently living alone and expresses concern because she needs to find a new apartment. She states that she feels supported by her sons. He rc/c was "pain" Patient had a right foot amputation yesterday due to gangrene. She states that was caused by a combination of poor circulation, DM and smoking cigarettes. Patient answers some questions but appears evasive about some aspects of her history. She at times repeats the same question back to the questioner. She appears distressed if anyone gestures towards her right leg stump and states "don't gesture." When asked how she is doing, patient states "I would feel better if I didn't have pain." She states that she has seen psychiatrists in the past but has never taken medications for a psychiatric reason. When asked further details, patient states "They did the same thing you're doing, asking questions you want to hear the answer to." (??) Patient states that her recent mood has been "fair," and she has recently been stressed because she needs to find an apartment. Her appetite has been "good when the food is good." When questioned about her self-esteem, she states "I love me." She refuses medications for anxiety or depression when offered. She is refusing help and is somewhat odd and sarcastic. 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 When questioned further, she states she did "everything" but "just didn't shoot needles." She states that she has a sponsor from [employer]. Patient is a former smoker and expresses that she wished she quit smoking sooner because smoking contributed to her amputation. Psych history: Drugs and ETOH: former user, clean and sober for 17 years Tobacco: former smoker Medical history: DM HTN Peripheral vascular disease Hypercholesterolemia anemia renal insufficiency ESRD on peritoneal dialysis Surgical history: right fem-pop bypass 2016 right [employer] cath and left common iliac stent November 2016 Right foot amputated 02/12/17 Social history: Single () 3 sons Lives alone Current Medications: Active Medications Generic Name Dose Route Start Last Admin Trade Name Freq PRN Reason Stop Dose Admin Acetaminophen 650 mg 02/12/17 13:13 Tylenol 325mg Tab PO Q6 PRN Pain, Mild (1-3) Amlodipine Besylate 10 mg 02/05/17 10:00 02/13/17 10:50 Norvasc PO Not Given DAILY [facility] Aspirin 81 mg 02/07/17 17:30 02/13/17 10:34 Ecotrin PO 81 mg DAILY [facility] Administration Calcium Acetate 2,668 mg 02/05/17 08:00 02/13/17 13:00 Phoslo PO Not Given TIDCC [facility] Carvedilol 12.5 mg 02/05/17 10:00 02/13/17 10:48 Coreg PO Not Given BID [facility] Clopidogrel Bisulfate 75 mg 02/09/17 10:00 02/13/17 10:27 Plavix PO 75 mg DAILY [facility] Administration Collagenase 1 gm 02/05/17 10:00 02/13/17 10:43 Santyl EXT Not Given DAILY [facility] Diphenhydramine HCl 25 mg 02/12/17 13:35 Benadryl IVP Q6 PRN Itching / Pruritus Epoetin Alec 10,000 unit 02/08/17 09:00 02/11/17 09:10 Procrit SC 10,000 unit MWF [facility] Administration Ferrous Sulfate 325 mg 02/05/17 10:00 02/13/17 10:27 Feosol PO 325 mg DAILY [facility] Administration Heparin Sodium (Porcine) 5,000 units 02/05/17 22:00 02/13/17 10:41 Heparin SC Not Given Q12 [facility] Hydromorphone HCl 0.5 mg 02/13/17 00:04 02/13/17 14:12 Dilaudid IVP 0.5 mg Q3H PRN Administration Pain, severe (8-10) Insulin Glargine 20 unit 02/04/17 22:30 02/12/17 21:41 Lantus SC 20 units HS [facility] Administration Insulin Human Regular 0 unit 02/04/17 22:00 02/13/17 12:00 Novolin R SC Not Given ACHS [facility] Protocol Losartan Potassium 100 mg 02/05/17 18:00 02/12/17 18:20 Cozaar PO Not Given DAILY@1800 [facility] Morphine Sulfate 2 mg 02/12/17 15:26 Morphine IVP Q4 PRN Pain, moderate (4-7) Ondansetron HCl 4 mg 02/12/17 13:44 Zofran Inj IVP Q8H PRN Nausea/Vomiting Rosuvastatin Calcium 10 mg 02/04/17 22:00 02/12/17 21:41 Crestor PO 10 mg HS [facility] Administration Past Psychiatric History - Past Psychiatric History Previous Treatment History: None Pertinent Medical Hx (Current Medical&Sleep Prob, Allergies): Allergies Allergy/AdvReac Type Severity Reaction Status Date / Time shrimp Allergy Severe RASH Verified 01/11/17 07:35 Carvedilol [Coreg] 12.5 mg PO BID 07/29/15 Ferrous Sulfate 325 mg PO DAILY 07/29/15 amLODIPine [Norvasc] 10 mg PO DAILY 11/06/15 Aspirin [Adult Low Dose Aspirin EC] 81 mg PO DAILY 03/02/16 Insulin Glulisine [Apidra] See Protocol SQ AC 03/02/16 Calcium Acetate [Phoslo] 2,668 mg PO TIDCC tab 11/23/16 Insulin Glargine, Recombina [Lantus] 40 unit SC HS unit 11/23/16 Insulin Human Regular [Novolin R] 0 unit SC ACHS unit 11/23/16 Losartan [Cozaar] 100 mg PO DAILY@1800 tab 11/23/16 Collagenase [Santyl] 30 applic EXT DAILY 02/04/17 Epoetin Alec [Procrit] 10,000 unit SC QWK 02/04/17 Oxycodone HCl/Acetaminophen [Endocet 5-325 Tablet] 1 each PO Q4 PRN 02/04/17 Simvastatin 40 mg PO DAILY 02/04/17 Review of Systems - Neurological Neurological: UNREMARKABLE - Psychiatric Psychiatric: Anxiety. absent: Hallucinations, Homicidal Ideation, Paranoia, Suicidal Ideation Mental Status Examination - Personal Presentation Personal Presentation: Looks stated age - Affect Affect: Constricted - Motor Activity Motor Activity: Calm - Reliability in Providing Information Reliability in Providing Information: Poor, due to altered mood - Speech Speech: Organized - Mood Mood: Anxious - Formal Thought Process Formal Thought Process: No Impairment - Cognitive Functions Orientation: Person, Place, Situation, Time Sensorium: Alert Attention/Concentration: Attentive Abstract Thinking: [place] Estimate of Intelligence: Average Judgement: Intact, as evidence by: Insight regarding need for hospitalization Memory: Recent intact, as evidence by: Ability to recall events of the day, Remote intact, as evidenced by: Abilit to recall sig. life events - Risk Risk: Diminished functioning - Strength & Assets Inventory Strength & Assets Inventory: Family support - Limitations Limitations: Living alone DSM 5 DX - DSM 5 DSM 5 Diagnosis: Adjustment disorder with anxious r/o Anxiety disorder - Recommended/Plan of Treatment Treatment Recommendations and Plan of Treatment: Patient refuses anti-anxiety or antidepressant medication Consider further pain control Support and psychoeducation Refer to after care if patient feels need for it 33 minutes
--- NOTE | 2017-02-13 16:00 | CP.PCM.PN ---
Subjective - Date & Time of Evaluation Date of Evaluation: 02/13/17 Time of Evaluation: 15:30 - Subjective Subjective: in pain tolerating CCPD somewhat lethargic due to pain meds unable to obtain ROS labs noted Objective - Vital Signs/Intake and Output Vital Signs (last 24 hours): Temp Pulse Resp BP Pulse Ox 98.7 F 96 H 20 148/80 95 02/13/17 08:07 02/13/17 10:22 02/13/17 08:07 02/13/17 10:22 02/13/17 08:07 Intake and Output: 02/13/17 02/13/17 06:59 18:59 Intake Total 640 Balance 640 - Medications Medications: Current Medications Acetaminophen (Tylenol 325mg Tab) 650 mg PO Q6 PRN PRN Reason: Pain, Mild (1-3) Amlodipine Besylate (Norvasc) 10 mg PO DAILY [facility] Last Admin: 02/13/17 10:50 Dose: Not Given Aspirin (Ecotrin) 81 mg PO DAILY [facility] Last Admin: 02/13/17 10:34 Dose: 81 mg Calcium Acetate (Phoslo) 2,668 mg PO TIDCC [facility] Last Admin: 02/13/17 13:00 Dose: Not Given Carvedilol (Coreg) 12.5 mg PO BID [facility] Last Admin: 02/13/17 10:48 Dose: Not Given Clopidogrel Bisulfate (Plavix) 75 mg PO DAILY [facility] Last Admin: 02/13/17 10:27 Dose: 75 mg Collagenase (Santyl) 1 gm EXT DAILY [facility] Last Admin: 02/13/17 10:43 Dose: Not Given Diphenhydramine HCl (Benadryl) 25 mg IVP Q6 PRN PRN Reason: Itching / Pruritus Epoetin Alec (Procrit) 10,000 unit SC MWF [facility] Last Admin: 02/11/17 09:10 Dose: 10,000 unit Ferrous Sulfate (Feosol) 325 mg PO DAILY [facility] Last Admin: 02/13/17 10:27 Dose: 325 mg Heparin Sodium (Porcine) (Heparin) 5,000 units SC Q12 [facility] Last Admin: 02/13/17 10:41 Dose: Not Given Hydromorphone HCl (Dilaudid) 0.5 mg IVP Q3H PRN PRN Reason: Pain, severe (8-10) Last Admin: 02/13/17 14:12 Dose: 0.5 mg Insulin Glargine (Lantus) 20 unit SC HS [facility] Last Admin: 02/12/17 21:41 Dose: 20 units Insulin Human Regular (Novolin R) 0 unit SC [facility] PRN Reason: Protocol Last Admin: 02/13/17 12:00 Dose: Not Given Losartan Potassium (Cozaar) 100 mg PO DAILY@1800 [facility] Last Admin: 02/12/17 18:20 Dose: Not Given Morphine Sulfate (Morphine) 2 mg IVP Q4 PRN PRN Reason: Pain, moderate (4-7) Ondansetron HCl (Zofran Inj) 4 mg IVP Q8H PRN PRN Reason: Nausea/Vomiting Rosuvastatin Calcium (Crestor) 10 mg PO HS [facility] Last Admin: 02/12/17 21:41 Dose: 10 mg - Labs Labs: 02/13/17 07:35 02/13/17 07:35 PT 11.1 SECONDS (9.7-12.2) 02/12/17 07:14 INR 1.0 02/12/17 07:14 APTT 32 SECONDS (21-34) 02/12/17 07:14 - Constitutional Appears: Chronically Ill - Head Exam Head Exam: ATRAUMATIC - Eye Exam Eye Exam: EOMI. absent: Scleral icterus - ENT Exam ENT Exam: Mucous Membranes Moist - Neck Exam Neck Exam: Full ROM. absent: Lymphadenopathy - Respiratory Exam Respiratory Exam: Decreased Breath Sounds. absent: Accessory Muscle Use - GI/Abdominal Exam GI & Abdominal Exam: Soft. absent: Tenderness - Neurological Exam Neurological Exam: Alert, Altered, Oriented x3 Assessment and Plan - Assessment and Plan (Free Text) Assessment: CCPD vascular disease, post right tma hypertension check ferritin to assess anemia continue CCPD
--- NOTE | 2017-02-13 16:26 | CP.PCM.PN ---
Subjective - Date & Time of Evaluation Date of Evaluation: 02/13/17 Time of Evaluation: 10:00 - Subjective Subjective: stable s/p amp c/o pain at tma site refuses antibiotics poor prognosis for limb salvage Objective - Vital Signs/Intake and Output Vital Signs (last 24 hours): Temp Pulse Resp BP Pulse Ox 98.7 F 96 H 20 148/80 95 02/13/17 08:07 02/13/17 10:22 02/13/17 08:07 02/13/17 10:22 02/13/17 08:07 Intake and Output: 02/13/17 02/13/17 06:59 18:59 Intake Total 640 240 Balance 640 240 - Medications Medications: Current Medications Acetaminophen (Tylenol 325mg Tab) 650 mg PO Q6 PRN PRN Reason: Pain, Mild (1-3) Amlodipine Besylate (Norvasc) 10 mg PO DAILY [facility] Last Admin: 02/13/17 10:50 Dose: Not Given Aspirin (Ecotrin) 81 mg PO DAILY [facility] Last Admin: 02/13/17 10:34 Dose: 81 mg Calcium Acetate (Phoslo) 2,668 mg PO TIDCC [facility] Last Admin: 02/13/17 13:00 Dose: Not Given Carvedilol (Coreg) 12.5 mg PO BID [facility] Last Admin: 02/13/17 10:48 Dose: Not Given Clopidogrel Bisulfate (Plavix) 75 mg PO DAILY [facility] Last Admin: 02/13/17 10:27 Dose: 75 mg Collagenase (Santyl) 1 gm EXT DAILY [facility] Last Admin: 02/13/17 10:43 Dose: Not Given Diphenhydramine HCl (Benadryl) 25 mg IVP Q6 PRN PRN Reason: Itching / Pruritus Epoetin Alec (Procrit) 10,000 unit SC MWF [facility] Last Admin: 02/11/17 09:10 Dose: 10,000 unit Ferrous Sulfate (Feosol) 325 mg PO DAILY [facility] Last Admin: 02/13/17 10:27 Dose: 325 mg Heparin Sodium (Porcine) (Heparin) 5,000 units SC Q12 [facility] Last Admin: 02/13/17 10:41 Dose: Not Given Hydromorphone HCl (Dilaudid) 0.5 mg IVP Q3H PRN PRN Reason: Pain, severe (8-10) Last Admin: 02/13/17 14:12 Dose: 0.5 mg Insulin Glargine (Lantus) 20 unit SC HS [facility] Last Admin: 02/12/17 21:41 Dose: 20 units Insulin Human Regular (Novolin R) 0 unit SC [facility] PRN Reason: Protocol Last Admin: 02/13/17 12:00 Dose: Not Given Losartan Potassium (Cozaar) 100 mg PO DAILY@1800 [facility] Last Admin: 02/12/17 18:20 Dose: Not Given Morphine Sulfate (Morphine) 2 mg IVP Q4 PRN PRN Reason: Pain, moderate (4-7) Ondansetron HCl (Zofran Inj) 4 mg IVP Q8H PRN PRN Reason: Nausea/Vomiting Rosuvastatin Calcium (Crestor) 10 mg PO HS [facility] Last Admin: 02/12/17 21:41 Dose: 10 mg - Labs Labs: 02/13/17 07:35 02/13/17 07:35 PT 11.1 SECONDS (9.7-12.2) 02/12/17 07:14 INR 1.0 02/12/17 07:14 APTT 32 SECONDS (21-34) 02/12/17 07:14 - Constitutional Appears: Non-toxic, Chronically Ill - Head Exam Head Exam: NORMOCEPHALIC - Eye Exam Eye Exam: PERRL - ENT Exam ENT Exam: Mucous Membranes Dry - Neck Exam Neck Exam: absent: Lymphadenopathy - Respiratory Exam Respiratory Exam: Decreased Breath Sounds - Cardiovascular Exam Cardiovascular Exam: REGULAR RHYTHM Assessment and Plan (1) Gangrene of right foot Status: Acute (2) Chronic anemia Status: Acute (3) Chronic congestive heart failure Status: Acute (4) Diabetes mellitus Status: Acute (5) ESRD on peritoneal dialysis Status: Acute
--- NOTE | 2017-02-13 20:45 | OP ---
PROCEDURE DATE: 02/12/2017 PREOPERATIVE DIAGNOSIS: Dry gangrene of right forefoot. POSTOPERATIVE DIAGNOSIS: Dry gangrene of right forefoot. NAME OF PROCEDURE: Transmetatarsal amputation of right foot. SURGEON: Kenneth Durham DPM PRACTICE CLINICIAN: Dr. Lassiter, ANGELIAM PGY2; Dr. Leanne DPM PGY-1 TYPE OF ANESTHESIA: MAC IV sedation with local. ANESTHESIA ADMINISTERED BY: Dr. Cerna. INDICATIONS: The patient is a 51-year-old female with the above-mentioned diagnosis. The patient has exhausted all conservative treatments at this time and now requires surgical intervention. Of note, the patient recently underwent a right lower extremity stent with Dr. Clark, last week. The patient has signed the consent after careful explanation of all risks, benefits, complications, and alternatives for the surgical procedure. No guarantees were given nor implied. A 2 grams of IV Ancef were given to the patient one half hour prior to the procedure. An n.p.o status was confirmed prior to taking the patient to the operating room. PREPARATION: The patient was brought into the operating room and placed in the operating table in the supine position. No hemostasis was required for this procedure. After induction of IV sedation, the patient received a total of 30 mL of 1:1 mixture consisting of 0.5% Marcaine plain and 2% lidocaine plain in local block fashion to the left ankle. Once local anesthesia was achieved, the right foot was then prepped and draped in the usual sterile manner and the procedure began. DESCRIPTION OF PROCEDURE: Attention was then directed to the right foot. At this time, a bedside Doppler was utilized to assess the patient's pedal pulses. Biphasic wave forms were noted per the dorsalis pedis artery; however, when the posterior tibial artery assessed there were no wave forms present. Next, attention was then directed to the right foot in which they used #10 blade was utilized to create a circumferential incision surrounding the distal aspect of the metatarsal straight down to the level of bone leaving more skin and soft tissue plantarly than dorsally exposing all metatarsal heads. All of the soft tissue was then freed from the metatarsal heads to the level of the mid shaft of the metatarsal with a periosteal elevator. Next, a sagittal saw was utilized to transect metatarsals I through V. At this time, it was noted that there was only minimal bleeding coming from the bones and the soft tissue. The decision was then made to excise more bone and soft tissue at the level of the tarsometatarsal joints. The sagittal saw was then utilized to resect all of the metatarsals I through V from the tarsometatarsal joints. At this point, healthy bleeding was noted from the interosseal tissue. Utilizing a large dissecting knife, the forefoot was then removed from the mid foot and passed from the operative field. At this time, the sagittal saw was utilized to remove all the cartilaginous surfaces from the remaining tarsal bone with intramedullary bleeding noted after the cuts were made. The remaining sharp bone was then debrided down to smoothness using a rongeur. All remaining tendonous attachments were then transected proximally and were allowed to retract within the foot. Next, the wound was flushed copiously with hydrogen peroxide. All bleeders were ligated and cauterized using either electrocautery Bovie and 3-0 chromic gut ligature. A plantar tissue flap was then brought up dorsally to cover the metatarsal itself. A plantar tissue flap was then brought up dorsally to cover the remaining tarsal bone. The deep tissues were then reapproximated using #3-0 chronic gut suture. The subcutaneous tissues were then reapproximated using #3-0 chronic gut suture and skin edges were reapproximated using a #3-0 nylon suture. Utilizing a #10 blade an approximately 1 cm linear incision was then made on the plantar aspect of the flap to allow for a Ang drain to drain any potential hematoma within the amputation site. An additional 10 cc 0f 0.5% marcaine plain was then injected to the right foot. The wound was then dressed with Xeroform followed by fluff gauze and a bulky soft dressing. POSTOPERATIVE CONDITION: The patient tolerated the anesthesia and procedure well and was escorted to the recovery room with all vital signs stable and neurovascular status intact to the right extremity. The patient will be on complete bed rest for the following next few days. She will require physical therapy following the procedure and strict NWB to the right lower extremity. The patient will then follow up with Dr. Durham as an outpatient in his office following discharge. Maliha Lassiter DPM Kenneth Kai Jackson DPM [facility] # [id number] [facility] [place] [facility]
[2017-02-13] MEDS: (Lantus) Insulin Glargine, Recombinant SC SCH (22:09)
[2017-02-14] MEDS: (Novolin R) Insulin Human Regular 100 units/ml vial SC SCH ×4 (08:22→21:16)
--- NOTE | 2017-02-14 08:56 | CP.PCM.PN ---
Subjective - Date & Time of Evaluation Date of Evaluation: 02/14/17 Time of Evaluation: 08:30 - Subjective Subjective: Podiatry progress note- Dr. Ordonez: 51 yo female patient seen at bedside this morning 2 days s/p right foot TMA. Pt seen resting in bed at time of visit with right lower extremity elevated on pillow. Per nursing patient febrile currently (100.9). Pt is complaining of pain and is quite hesitant to have her foot examined or touched today. Pt does appear more alert today, however does appear quite anxious. Denies n/v/c/sob/cp/ weakness/dizziness at this time. Reports being compliant with strict bed rest and non-weightbearing to right foot. Objective - Vital Signs/Intake and Output Vital Signs (last 24 hours): Temp Pulse Resp BP Pulse Ox 98.7 F 96 H 20 147/75 95 02/13/17 08:07 02/13/17 18:46 02/13/17 21:00 02/13/17 21:00 02/13/17 08:07 Intake and Output: 02/14/17 02/14/17 06:59 18:59 Intake Total 200 Balance 200 - Medications Medications: Current Medications Acetaminophen (Tylenol 325mg Tab) 650 mg PO Q6 PRN PRN Reason: Pain, Mild (1-3) Amlodipine Besylate (Norvasc) 10 mg PO DAILY [facility] Last Admin: 02/13/17 10:50 Dose: Not Given Aspirin (Ecotrin) 81 mg PO DAILY [facility] Last Admin: 02/13/17 10:34 Dose: 81 mg Calcium Acetate (Phoslo) 2,668 mg PO TIDCC [facility] Last Admin: 02/14/17 08:22 Dose: 2,668 mg Carvedilol (Coreg) 12.5 mg PO BID [facility] Last Admin: 02/13/17 17:28 Dose: Not Given Clopidogrel Bisulfate (Plavix) 75 mg PO DAILY [facility] Last Admin: 02/13/17 10:27 Dose: 75 mg Collagenase (Santyl) 1 gm EXT DAILY [facility] Last Admin: 02/13/17 10:43 Dose: Not Given Diphenhydramine HCl (Benadryl) 25 mg IVP Q6 PRN PRN Reason: Itching / Pruritus Epoetin Alec (Procrit) 10,000 unit SC MWF [facility] Last Admin: 02/11/17 09:10 Dose: 10,000 unit Ferrous Sulfate (Feosol) 325 mg PO DAILY [facility] Last Admin: 02/13/17 10:27 Dose: 325 mg Heparin Sodium (Porcine) (Heparin) 5,000 units SC Q12 [facility] Last Admin: 02/13/17 22:09 Dose: Not Given Hydromorphone HCl (Dilaudid) 0.5 mg IVP Q3H PRN PRN Reason: Pain, severe (8-10) Last Admin: 02/13/17 14:12 Dose: 0.5 mg Insulin Glargine (Lantus) 20 unit SC HS [facility] Last Admin: 02/13/17 22:09 Dose: Not Given Insulin Human Regular (Novolin R) 0 unit SC [facility] PRN Reason: Protocol Last Admin: 02/14/17 08:22 Dose: Not Given Losartan Potassium (Cozaar) 100 mg PO DAILY@1800 [facility] Last Admin: 02/13/17 17:28 Dose: Not Given Morphine Sulfate (Morphine) 2 mg IVP Q4 PRN PRN Reason: Pain, moderate (4-7) Ondansetron HCl (Zofran Inj) 4 mg IVP Q8H PRN PRN Reason: Nausea/Vomiting Rosuvastatin Calcium (Crestor) 10 mg PO [facility] Last Admin: 02/13/17 22:09 Dose: Not Given - Labs Labs: 02/13/17 07:35 02/13/17 07:35 PT 11.1 SECONDS (9.7-12.2) 02/12/17 07:14 INR 1.0 02/12/17 07:14 APTT 32 SECONDS (21-34) 02/12/17 07:14 - Constitutional Appears: Non-toxic, No Acute Distress - Extremities Exam Extremities Exam: absent: Calf Tenderness Additional comments: RLE exam: Dressing to right foot appears c/d/i with no strikethrough VASC- DP pulse is palpable, PT pulse non-palpable, skin temp runs warm to warm ( from proximal to distal), cap refill < 3 sec to to flap, no pedal edema DERM- surgical incision site appears well-coapted, no dehisence of sutures, minimal sanguinous drainage from pegyg drain, no malodor, no fluctuance, no cellulitis NEURO- pedal sensation is intact ORTHO- tenderness to palpation lateral aspect of distal stump - Psychiatric Exam Psychiatric exam: Agitated, Anxious Assessment and Plan - Assessment and Plan (Free Text) Assessment: 51 yo female patient 2 days s/p right foot TMA Plan: Pt S&E at bedside with Dr. Ordonez present Chart labs and vitals reviewed: tmax 100.9 WBC is elevated 15.9 Discussed w/ patient importance again of need for antibiotics to prevent infection Pt is now willing to receive antibiotics (pt previously had refused multiple times), discussed with Dr. Cronin who added vanc and zosyn to the regimen Drain left intact, foot cleansed and redressed with DSD fluff, ABD, and loose kerlix. Dressing to be kept c/d/i, strict NWB to right foot with 1 more day of bedrest May start PT again tomorrow. Pain meds per primary Will follow closely.
[2017-02-14] MEDS: Collagenase 250 Units/gm Ointment(30 gm) EXT SCH (09:20)
--- NOTE | 2017-02-14 11:12 | CP.PCM.PN ---
Subjective - Date & Time of Evaluation Date of Evaluation: 02/14/17 Time of Evaluation: 11:09 - Subjective Subjective: s/p right TMA pain less has refused IV ABs despite elevated temps- pt will reconsider now PD going well BP controlled still rather anemic Objective - Vital Signs/Intake and Output Vital Signs (last 24 hours): Temp Pulse Resp BP Pulse Ox 100.9 F H 96 H 20 158/68 H 95 02/14/17 09:09 02/13/17 18:46 02/13/17 21:00 02/14/17 09:09 02/13/17 08:07 Intake and Output: 02/14/17 02/14/17 06:59 18:59 Intake Total 200 Balance 200 - Medications Medications: Current Medications Acetaminophen (Tylenol 325mg Tab) 650 mg PO Q6 PRN PRN Reason: Pain, Mild (1-3) Last Admin: 02/14/17 09:09 Dose: 650 mg Amlodipine Besylate (Norvasc) 10 mg PO DAILY [facility] Last Admin: 02/14/17 09:11 Dose: 10 mg Aspirin (Ecotrin) 81 mg PO DAILY [facility] Last Admin: 02/14/17 09:14 Dose: 81 mg Calcium Acetate (Phoslo) 2,668 mg PO TIDCC [facility] Last Admin: 02/14/17 08:22 Dose: 2,668 mg Carvedilol (Coreg) 12.5 mg PO BID [facility] Last Admin: 02/14/17 09:09 Dose: 12.5 mg Clopidogrel Bisulfate (Plavix) 75 mg PO DAILY [facility] Last Admin: 02/14/17 09:10 Dose: 75 mg Collagenase (Santyl) 1 gm EXT DAILY [facility] Last Admin: 02/14/17 09:20 Dose: 1 applic Diphenhydramine HCl (Benadryl) 25 mg IVP Q6 PRN PRN Reason: Itching / Pruritus Epoetin Alec (Procrit) 10,000 unit SC MWF [facility] Last Admin: 02/11/17 09:10 Dose: 10,000 unit Ferrous Sulfate (Feosol) 325 mg PO DAILY [facility] Last Admin: 02/14/17 09:10 Dose: 325 mg Heparin Sodium (Porcine) (Heparin) 5,000 units SC Q12 [facility] Last Admin: 02/14/17 09:09 Dose: 5,000 units Hydromorphone HCl (Dilaudid) 0.5 mg IVP Q3H PRN PRN Reason: Pain, severe (8-10) Last Admin: 02/13/17 14:12 Dose: 0.5 mg Insulin Glargine (Lantus) [address] [facility] Last Admin: 02/13/17 22:09 Dose: Not Given Insulin Human Regular (Novolin R) 0 unit SC ACHS [facility] PRN Reason: Protocol Last Admin: 02/14/17 08:22 Dose: Not Given Losartan Potassium (Cozaar) 100 mg PO DAILY@1800 [facility] Last Admin: 02/13/17 17:28 Dose: Not Given Morphine Sulfate (Morphine) 2 mg IVP Q4 PRN PRN Reason: Pain, moderate (4-7) Ondansetron HCl (Zofran Inj) 4 mg IVP Q8H PRN PRN Reason: Nausea/Vomiting Rosuvastatin Calcium (Crestor) 10 mg PO HS [facility] Last Admin: 02/13/17 22:09 Dose: Not Given - Labs Labs: 02/13/17 07:35 02/13/17 07:35 PT 11.1 SECONDS (9.7-12.2) 02/12/17 07:14 INR 1.0 02/12/17 07:14 APTT 32 SECONDS (21-34) 02/12/17 07:14 - Constitutional Appears: No Acute Distress, Chronically Ill - Head Exam Head Exam: ATRAUMATIC, NORMAL INSPECTION - Eye Exam Eye Exam: EOMI, Normal appearance - Neck Exam Neck Exam: Normal Inspection. absent: Tenderness - Respiratory Exam Respiratory Exam: Clear to Ausculation Bilateral, NORMAL BREATHING PATTERN - Cardiovascular Exam Cardiovascular Exam: REGULAR RHYTHM, +S1 - GI/Abdominal Exam GI & Abdominal Exam: Distended, Soft - Extremities Exam Extremities Exam: Tenderness. absent: Pedal Edema - Neurological Exam Neurological Exam: Alert, CN II-XII Intact - Skin Skin Exam: Dry, Warm Assessment and Plan (1) Type 1 diabetes mellitus with diabetic nephropathy Status: Acute (2) Gangrene of right foot Status: Acute (3) End stage renal disease Status: Acute - Assessment and Plan (Free Text) Plan: recheck iron stores same PD pt to discuss ABs with staff
[2017-02-14] MEDS ORDERED: Vancomycin 1 gm/NS 200 ml 1 GM/200 ML BAG IVPB ONE (12:00)
--- NOTE | 2017-02-14 17:49 | CP.PCM.PN ---
Subjective - Date & Time of Evaluation Date of Evaluation: 02/14/17 Time of Evaluation: 09:00 - Subjective Subjective: s/p right TMA pain less has refused IV ABs despite elevated temps- pt will reconsider now Objective - Vital Signs/Intake and Output Vital Signs (last 24 hours): Temp Pulse Resp BP Pulse Ox 99.6 F 92 H 20 116/59 L 94 L 02/14/17 15:00 02/14/17 15:00 02/14/17 15:00 02/14/17 17:19 02/14/17 15:00 Intake and Output: 02/14/17 02/14/17 06:59 18:59 Intake Total 200 Balance 200 - Medications Medications: Current Medications Acetaminophen (Tylenol 325mg Tab) 650 mg PO Q6 PRN PRN Reason: Pain, Mild (1-3) Last Admin: 02/14/17 14:22 Dose: 650 mg Amlodipine Besylate (Norvasc) 10 mg PO DAILY [facility] Last Admin: 02/14/17 09:11 Dose: 10 mg Aspirin (Ecotrin) 81 mg PO DAILY [facility] Last Admin: 02/14/17 09:14 Dose: 81 mg Calcium Acetate (Phoslo) 2,668 mg PO TIDCC [facility] Last Admin: 02/14/17 17:19 Dose: 2,668 mg Carvedilol (Coreg) 12.5 mg PO BID [facility] Last Admin: 02/14/17 17:19 Dose: 12.5 mg Clopidogrel Bisulfate (Plavix) 75 mg PO DAILY [facility] Last Admin: 02/14/17 09:10 Dose: 75 mg Collagenase (Santyl) 1 gm EXT DAILY [facility] Last Admin: 02/14/17 09:20 Dose: 1 applic Diphenhydramine HCl (Benadryl) 25 mg IVP Q6 PRN PRN Reason: Itching / Pruritus Epoetin Alec (Procrit) 10,000 unit SC MWF [facility] Last Admin: 02/11/17 09:10 Dose: 10,000 unit Ferrous Sulfate (Feosol) 325 mg PO DAILY [facility] Last Admin: 02/14/17 09:10 Dose: 325 mg Heparin Sodium (Porcine) (Heparin) 5,000 units SC Q12 [facility] Last Admin: 02/14/17 09:09 Dose: 5,000 units Hydromorphone HCl (Dilaudid) 0.5 mg IVP Q3H PRN PRN Reason: Pain, severe (8-10) Last Admin: 02/13/17 14:12 Dose: 0.5 mg Piperacillin Sod/Tazobactam (Sod 2.25 gm/ Sodium Chloride) 100 mls @ 100 mls/ hr IVPB Q12H [facility] Last Admin: 02/14/17 12:44 Dose: 100 mls/hr Insulin Glargine (Lantus) 20 unit SC [facility] Last Admin: 02/13/17 22:09 Dose: Not Given Insulin Human Regular (Novolin R) 0 unit SC ACHS [facility] PRN Reason: Protocol Last Admin: 02/14/17 17:18 Dose: 3 unit Losartan Potassium (Cozaar) 100 mg PO DAILY@1800 [facility] Last Admin: 02/14/17 17:19 Dose: 100 mg Morphine Sulfate (Morphine) 2 mg IVP Q4 PRN PRN Reason: Pain, moderate (4-7) Ondansetron HCl (Zofran Inj) 4 mg IVP Q8H PRN PRN Reason: Nausea/Vomiting Rosuvastatin Calcium (Crestor) 10 mg PO HS [facility] Last Admin: 02/13/17 22:09 Dose: Not Given - Labs Labs: 02/13/17 07:35 02/13/17 07:35 PT 11.1 SECONDS (9.7-12.2) 02/12/17 07:14 INR 1.0 02/12/17 07:14 APTT 32 SECONDS (21-34) 02/12/17 07:14 - Constitutional Appears: Non-toxic, Chronically Ill - Head Exam Head Exam: NORMOCEPHALIC - Eye Exam Eye Exam: PERRL - ENT Exam ENT Exam: Mucous Membranes Dry - Neck Exam Neck Exam: absent: Lymphadenopathy - Respiratory Exam Respiratory Exam: Decreased Breath Sounds - Cardiovascular Exam Cardiovascular Exam: REGULAR RHYTHM - GI/Abdominal Exam GI & Abdominal Exam: Distended, Soft Assessment and Plan (1) Gangrene of right foot Status: Acute (2) Chronic anemia Status: Acute (3) Chronic congestive heart failure Status: Acute (4) Diabetes mellitus Status: Acute (5) ESRD on peritoneal dialysis Status: Acute
--- NOTE | 2017-02-14 18:38 | CP.PCM.PN ---
Subjective - Date & Time of Evaluation Date of Evaluation: 02/14/17 Time of Evaluation: 18:37 - Subjective Subjective: Feeling much better. Right leg pain is less than yesterday. Right leg wound checked by the forensic accountant. No nausea vomiting. Improvement eating. Patient is getting her regular dialysis. We'll repeat the blood works in the morning. Physical therapy. We'll follow the patient Objective - Vital Signs/Intake and Output Vital Signs (last 24 hours): Temp Pulse Resp BP Pulse Ox 99.6 F 92 H 20 116/59 L 94 L 02/14/17 15:00 02/14/17 15:00 02/14/17 15:00 02/14/17 17:19 02/14/17 15:00 Intake and Output: 02/14/17 02/14/17 06:59 18:59 Intake Total 200 Balance 200 - Medications Medications: Current Medications Acetaminophen (Tylenol 325mg Tab) 650 mg PO Q6 PRN PRN Reason: Pain, Mild (1-3) Last Admin: 02/14/17 14:22 Dose: 650 mg Amlodipine Besylate (Norvasc) 10 mg PO DAILY [facility] Last Admin: 02/14/17 09:11 Dose: 10 mg Aspirin (Ecotrin) 81 mg PO DAILY [facility] Last Admin: 02/14/17 09:14 Dose: 81 mg Calcium Acetate (Phoslo) 2,668 mg PO TIDCC [facility] Last Admin: 02/14/17 17:19 Dose: 2,668 mg Carvedilol (Coreg) 12.5 mg PO BID [facility] Last Admin: 02/14/17 17:19 Dose: 12.5 mg Clopidogrel Bisulfate (Plavix) 75 mg PO DAILY [facility] Last Admin: 02/14/17 09:10 Dose: 75 mg Collagenase (Santyl) 1 gm EXT DAILY [facility] Last Admin: 02/14/17 09:20 Dose: 1 applic Diphenhydramine HCl (Benadryl) 25 mg IVP Q6 PRN PRN Reason: Itching / Pruritus Epoetin Alec (Procrit) 10,000 unit SC MWF [facility] Last Admin: 02/11/17 09:10 Dose: 10,000 unit Ferrous Sulfate (Feosol) 325 mg PO DAILY [facility] Last Admin: 02/14/17 09:10 Dose: 325 mg Heparin Sodium (Porcine) (Heparin) 5,000 units SC Q12 [facility] Last Admin: 02/14/17 09:09 Dose: 5,000 units Piperacillin Sod/Tazobactam (Sod 2.25 gm/ Sodium Chloride) 100 mls @ 100 mls/ hr IVPB Q12H [facility] Last Admin: 02/14/17 12:44 Dose: 100 mls/hr Insulin Glargine (Lantus) 20 unit SC HS [facility] Last Admin: 02/13/17 22:09 Dose: Not Given Insulin Human Regular (Novolin R) 0 unit SC ACHS [facility] PRN Reason: Protocol Last Admin: 02/14/17 17:18 Dose: 3 unit Losartan Potassium (Cozaar) 100 mg PO DAILY@1800 [facility] Last Admin: 02/14/17 17:19 Dose: 100 mg Morphine Sulfate (Morphine) 2 mg IVP Q4 PRN PRN Reason: Pain, moderate (4-7) Ondansetron HCl (Zofran Inj) 4 mg IVP Q8H PRN PRN Reason: Nausea/Vomiting Rosuvastatin Calcium (Crestor) 10 mg PO HS [facility] Last Admin: 02/13/17 22:09 Dose: Not Given - Labs Labs: 02/13/17 07:35 02/13/17 07:35 PT 11.1 SECONDS (9.7-12.2) 02/12/17 07:14 INR 1.0 02/12/17 07:14 APTT 32 SECONDS (21-34) 02/12/17 07:14
[2017-02-14] MEDS: (Lantus) Insulin Glargine, Recombinant SC SCH (21:31)
[2017-02-15 07:40] LABS: BASO % 0.2 % (0.0-2.0); EOS # 0.1 K/uL (0.0-0.7); EOS % 0.3 % (0.0-4.0); HEMATOCRIT 20.1 % (34.0-47.0); LYMPH % 10.4 % (20.0-40.0); MEAN CELL VOLUME 93.8 fL (81.0-99.0); MEAN CORPUSCULAR HEMOGLOBIN 30.5 pg (27.0-31.0); MEAN CORPUSCULAR HGB CONC 32.5 g/dL (33.0-37.0); MEAN PLATELET VOLUME 8.1 fL (7.2-11.7); MONO # 1.6 K/uL (0.0-0.8); WHITE BLOOD COUNT 19.4 K/uL (4.8-10.8)
[2017-02-15 07:59] LABS: POTASSIUM 4.7 mmol/L (3.6-5.2)
[2017-02-15 08:02] LABS: ALB/GLOB RATIO 0.9 (1.0-2.1); BILIRUBIN,TOTAL 0.5 mg/dL (0.2-1.3); CALCIUM 8.8 mg/dl (8.6-10.4)
[2017-02-15] MEDS: (Novolin R) Insulin Human Regular 100 units/ml vial SC SCH ×5 (08:48→22:43)
[2017-02-15] MEDS: EPOETIN ALFA 10,000 UNIT/ML ML SC SCH (10:00)
[2017-02-15] MEDS: Collagenase 250 Units/gm Ointment(30 gm) EXT SCH (10:07)
--- NOTE | 2017-02-15 12:01 | CP.PCM.PN ---
Subjective - Date & Time of Evaluation Date of Evaluation: 02/15/17 Time of Evaluation: 11:30 - Subjective Subjective: Podiatry progress note- Dr. Ordonez: 51 yo female patient seen at bedside this morning 3 days s/p right foot TMA w/ Dr. Ordonez present. Discussed with nursing, who says patient not eating very much and vomited twice. Also says patient has been refusing zofran, also refusing all narcotic pain meds and only taking the tylenol. Pt says she has a history of narcotic addition and is very concerned about taking drugs. Pt says she had a fever again this morning and feels nauseous. Does complain of pain to the right foot today. Appears more alert and talkative today. Denies c/sob/cp/ weakness/dizziness. Objective - Vital Signs/Intake and Output Vital Signs (last 24 hours): Temp Pulse Resp BP Pulse Ox 100.3 F H 65 22 112/55 L 95 02/15/17 08:26 02/15/17 10:13 02/15/17 08:26 02/15/17 10:13 02/15/17 08:26 Intake and Output: 02/15/17 02/15/17 06:59 18:59 Intake Total 500 Balance 500 - Medications Medications: Current Medications Acetaminophen (Tylenol 325mg Tab) 650 mg PO Q4 [facility] Amlodipine Besylate (Norvasc) 10 mg PO DAILY [facility] Last Admin: 02/15/17 10:02 Dose: Not Given Aspirin (Ecotrin) 81 mg PO DAILY [facility] Last Admin: 02/15/17 10:05 Dose: 81 mg Calcium Acetate (Phoslo) 2,668 mg PO TIDCC [facility] Last Admin: 02/15/17 08:47 Dose: 2,668 mg Carvedilol (Coreg) 12.5 mg PO BID [facility] Last Admin: 02/15/17 10:03 Dose: Not Given Clopidogrel Bisulfate (Plavix) 75 mg PO DAILY [facility] Last Admin: 02/15/17 10:02 Dose: 75 mg Collagenase (Santyl) 1 gm EXT DAILY [facility] Last Admin: 02/15/17 10:07 Dose: Not Given Diphenhydramine HCl (Benadryl) 25 mg IVP Q6 PRN PRN Reason: Itching / Pruritus Epoetin Alec (Procrit) 10,000 unit SC MWF [facility] Last Admin: 02/15/17 10:00 Dose: 10,000 unit Ferrous Sulfate (Feosol) 325 mg PO DAILY [facility] Last Admin: 02/15/17 10:03 Dose: 325 mg Heparin Sodium (Porcine) (Heparin) 5,000 units SC Q12 [facility] Last Admin: 02/15/17 10:07 Dose: Not Given Piperacillin Sod/Tazobactam (Sod 2.25 gm/ Sodium Chloride) 100 mls @ 100 mls/ hr IVPB Q12H [facility] Last Admin: 02/15/17 01:27 Dose: 100 mls/hr Insulin Glargine (Lantus) 20 unit SC [facility] Last Admin: 02/14/17 21:31 Dose: 20 units Insulin Human Regular (Novolin R) 0 unit SC ACHS [facility] PRN Reason: Protocol Last Admin: 02/15/17 08:48 Dose: 3 unit Losartan Potassium (Cozaar) 100 mg PO DAILY@1800 [facility] Last Admin: 02/14/17 17:19 Dose: 100 mg Morphine Sulfate (Morphine) 2 mg IVP Q4 PRN PRN Reason: Pain, moderate (4-7) Ondansetron HCl (Zofran Inj) 4 mg IVP Q8H PRN PRN Reason: Nausea/Vomiting Rosuvastatin Calcium (Crestor) 10 mg PO [facility] Last Admin: 02/14/17 21:31 Dose: 10 mg - Labs Labs: 02/15/17 07:23 02/15/17 07:23 PT 11.1 SECONDS (9.7-12.2) 02/12/17 07:14 INR 1.0 02/12/17 07:14 APTT 32 SECONDS (21-34) 02/12/17 07:14 - Constitutional Appears: Non-toxic, No Acute Distress - Extremities Exam Extremities Exam: absent: Calf Tenderness Additional comments: RLE exam: Dressing to right foot appears c/d/i VASC- DP pulse is palpable, PT pulse non-palpable, skin temp runs warm to warm ( from proximal to distal), cap refill < 3 sec to to flap, no pedal edema DERM- surgical incision site appears well-coapted, no dehisence of sutures, minimal sanguinous drainage from peggy drain, there is approximately 1cc of purulent drainage noted on compression of surgical site, no fluctuance, no cellulitis NEURO- pedal sensation is intact ORTHO- tenderness to palpation lateral aspect of distal stump - Neurological Exam Neurological Exam: Alert, Awake, Oriented x3 - Psychiatric Exam Psychiatric exam: Anxious Assessment and Plan - Assessment and Plan (Free Text) Assessment: 51 yo female patient 3 days s/p right foot TMA Plan: Pt S&E at bedside with Dr. Ordonez present Chart labs and vitals reviewed: tmax 100.3 WBC is elevated (19.4 up from 15) H/H low (6.5/20.1) to be transfused tosday Drain pulled and wound cx taken from drain c/w IV abx as per Dr. Cronin Blood cx: pending Surgical site cleansed with peroxide, saline W2D dressing applied. Dressing to be changed q12h Discussed with patient importance of taken pain medication (Tylenol), and to be compliant with IV abx Prognosis for limb salvage is poor Will follow closely.
--- NOTE | 2017-02-15 15:28 | CP.PCM.PN ---
Subjective - Date & Time of Evaluation Date of Evaluation: 02/15/17 Time of Evaluation: 07:00 - Subjective Subjective: EVENTS NOTED SEEN BY DR NIEVES ON ROUNDS CASE DISCUSSED Objective - Vital Signs/Intake and Output Vital Signs (last 24 hours): Temp Pulse Resp BP Pulse Ox 98.4 F 84 20 134/79 96 02/15/17 15:02 02/15/17 15:02 02/15/17 15:02 02/15/17 15:02 02/15/17 12:21 Intake and Output: 02/15/17 02/15/17 06:59 18:59 Intake Total 500 0 Balance 500 0 - Medications Medications: Current Medications Acetaminophen (Tylenol 325mg Tab) 650 mg PO Q4 [facility] Amlodipine Besylate (Norvasc) 10 mg PO DAILY [facility] Last Admin: 02/15/17 10:02 Dose: Not Given Aspirin (Ecotrin) 81 mg PO DAILY [facility] Last Admin: 02/15/17 10:05 Dose: 81 mg Calcium Acetate (Phoslo) 2,668 mg PO TIDCC [facility] Last Admin: 02/15/17 12:00 Dose: Not Given Carvedilol (Coreg) 12.5 mg PO BID [facility] Last Admin: 02/15/17 10:03 Dose: Not Given Clopidogrel Bisulfate (Plavix) 75 mg PO DAILY [facility] Last Admin: 02/15/17 10:02 Dose: 75 mg Collagenase (Santyl) 1 gm EXT DAILY [facility] Last Admin: 02/15/17 10:07 Dose: Not Given Diphenhydramine HCl (Benadryl) 25 mg IVP Q6 PRN PRN Reason: Itching / Pruritus Epoetin Alec (Procrit) 10,000 unit SC MWF [facility] Last Admin: 02/15/17 10:00 Dose: 10,000 unit Ferrous Sulfate (Feosol) 325 mg PO DAILY [facility] Last Admin: 02/15/17 10:00 Dose: Not Given Heparin Sodium (Porcine) (Heparin) 5,000 units SC Q12 [facility] Last Admin: 02/15/17 10:07 Dose: Not Given Piperacillin Sod/Tazobactam (Sod 2.25 gm/ Sodium Chloride) 100 mls @ 100 mls/ hr IVPB Q12H [facility] Last Admin: 02/15/17 01:27 Dose: 100 mls/hr Insulin Glargine (Lantus) 20 unit SC HS [facility] Last Admin: 02/14/17 21:31 Dose: 20 units Insulin Human Regular (Novolin R) 0 unit SC [facility] PRN Reason: Protocol Last Admin: 02/15/17 12:15 Dose: Not Given Losartan Potassium (Cozaar) 100 mg PO DAILY@1800 [facility] Last Admin: 02/14/17 17:19 Dose: 100 mg Morphine Sulfate (Morphine) 2 mg IVP Q4 PRN PRN Reason: Pain, moderate (4-7) Ondansetron HCl (Zofran Inj) 4 mg IVP Q8H PRN PRN Reason: Nausea/Vomiting Rosuvastatin Calcium (Crestor) 10 mg PO [facility] Last Admin: 02/14/17 21:31 Dose: 10 mg - Labs Labs: 02/15/17 07:23 02/15/17 07:23 PT 11.1 SECONDS (9.7-12.2) 02/12/17 07:14 INR 1.0 02/12/17 07:14 APTT 32 SECONDS (21-34) 02/12/17 07:14 - Constitutional Appears: Non-toxic, Chronically Ill - Head Exam Head Exam: NORMOCEPHALIC - Eye Exam Eye Exam: absent: Scleral icterus - ENT Exam ENT Exam: Mucous Membranes Dry - Neck Exam Neck Exam: absent: Lymphadenopathy - Respiratory Exam Respiratory Exam: Decreased Breath Sounds - Cardiovascular Exam Cardiovascular Exam: REGULAR RHYTHM - GI/Abdominal Exam GI & Abdominal Exam: Distended, Soft - Rectal Exam Rectal Exam: Deferred - Extremities Exam Additional comments: RLE exam: Dressing to right foot appears c/d/i VASC- DP pulse is palpable, PT pulse non-palpable, skin temp runs warm to warm ( from proximal to distal), cap refill < 3 sec to to flap, no pedal edema DERM- surgical incision site appears well-coapted, no dehisence of sutures, minimal sanguinous drainage from peggy drain, there is approximately 1cc of purulent drainage noted on compression of surgical site, no fluctuance, no cellulitis NEURO- pedal sensation is intact ORTHO- tenderness to palpation lateral aspect of distal stump - Back Exam Back Exam: absent: CVA tenderness (L), CVA tenderness (R), paraspinal tenderness - Neurological Exam Neurological Exam: Alert, Awake - Psychiatric Exam Psychiatric exam: Depressed - Skin Skin Exam: Dry Assessment and Plan (1) Gangrene of right foot Status: Acute (2) Chronic anemia Status: Acute (3) Chronic congestive heart failure Status: Acute (4) Diabetes mellitus Status: Acute (5) ESRD on peritoneal dialysis Status: Acute - Assessment and Plan (Free Text) Assessment: FEVER / LEUKOCYTOSIS CONSIDER C/S OF PD FLUID IV RX ORDERED
--- NOTE | 2017-02-15 15:51 | CP.PCM.PN ---
Subjective - Date & Time of Evaluation Date of Evaluation: 02/15/17 Time of Evaluation: 15:49 - Subjective Subjective: PD going well Receiving blood transfusion for severe anemia On IV Abs as per ID Less nausea. BP controlled Objective - Vital Signs/Intake and Output Vital Signs (last 24 hours): Temp Pulse Resp BP Pulse Ox 98.4 F 84 20 134/79 96 02/15/17 15:02 02/15/17 15:02 02/15/17 15:02 02/15/17 15:02 02/15/17 12:21 Intake and Output: 02/15/17 02/15/17 06:59 18:59 Intake Total 500 0 Balance 500 0 - Medications Medications: Current Medications Acetaminophen (Tylenol 325mg Tab) 650 mg PO Q4 [facility] Amlodipine Besylate (Norvasc) 10 mg PO DAILY [facility] Last Admin: 02/15/17 10:02 Dose: Not Given Aspirin (Ecotrin) 81 mg PO DAILY [facility] Last Admin: 02/15/17 10:05 Dose: 81 mg Calcium Acetate (Phoslo) 2,668 mg PO TIDCC [facility] Last Admin: 02/15/17 12:00 Dose: Not Given Carvedilol (Coreg) 12.5 mg PO BID [facility] Last Admin: 02/15/17 10:03 Dose: Not Given Clopidogrel Bisulfate (Plavix) 75 mg PO DAILY [facility] Last Admin: 02/15/17 10:02 Dose: 75 mg Collagenase (Santyl) 1 gm EXT DAILY [facility] Last Admin: 02/15/17 10:07 Dose: Not Given Diphenhydramine HCl (Benadryl) 25 mg IVP Q6 PRN PRN Reason: Itching / Pruritus Epoetin Alec (Procrit) 10,000 unit SC MWF [facility] Last Admin: 02/15/17 10:00 Dose: 10,000 unit Ferrous Sulfate (Feosol) 325 mg PO DAILY [facility] Last Admin: 02/15/17 10:00 Dose: Not Given Heparin Sodium (Porcine) (Heparin) 5,000 units SC Q12 [facility] Last Admin: 02/15/17 10:07 Dose: Not Given Meropenem 500 mg/ Sodium (Chloride) 100 mls @ 100 mls/hr IVPB Q8 [facility] Insulin Glargine (Lantus) 20 unit SC HS [facility] Last Admin: 09/14/17 21:31 Dose: 20 units Insulin Human Regular (Novolin R) 0 unit SC ACHS [facility] PRN Reason: Protocol Last Admin: 02/15/17 12:15 Dose: Not Given Losartan Potassium (Cozaar) 100 mg PO DAILY@1800 [facility] Last Admin: 02/14/17 17:19 Dose: 100 mg Morphine Sulfate (Morphine) 2 mg IVP Q4 PRN PRN Reason: Pain, moderate (4-7) Ondansetron HCl (Zofran Inj) 4 mg IVP Q8H PRN PRN Reason: Nausea/Vomiting Rosuvastatin Calcium (Crestor) 10 mg PO HS [facility] Last Admin: 02/14/17 21:31 Dose: 10 mg - Labs Labs: 02/15/17 07:23 02/15/17 07:23 PT 11.1 SECONDS (9.7-12.2) 02/12/17 07:14 INR 1.0 02/12/17 07:14 APTT 32 SECONDS (21-34) 02/12/17 07:14 - Constitutional Appears: No Acute Distress, Chronically Ill - Head Exam Head Exam: ATRAUMATIC, NORMAL INSPECTION - Eye Exam Eye Exam: EOMI, Normal appearance - Neck Exam Neck Exam: Normal Inspection. absent: Tenderness - Respiratory Exam Respiratory Exam: Clear to Ausculation Bilateral, NORMAL BREATHING PATTERN - Cardiovascular Exam Cardiovascular Exam: REGULAR RHYTHM, +S1 - GI/Abdominal Exam GI & Abdominal Exam: Soft. absent: Tenderness - Extremities Exam Extremities Exam: Normal Inspection, Tenderness - Neurological Exam Neurological Exam: Alert, CN II-XII Intact - Skin Skin Exam: Dry, Warm Assessment and Plan (1) Type 1 diabetes mellitus with diabetic nephropathy Status: Acute (2) Gangrene of right foot Status: Acute (3) End stage renal disease Status: Acute - Assessment and Plan (Free Text) Plan: Same PD blood transfusion IV ABs surgical wound follow up
[2017-02-15] MEDS: Meropenem 500 MG in Sodium Chloride 0.9% 100 ML IVPB SCH (20:32)
[2017-02-15] MEDS: (Lantus) Insulin Glargine, Recombinant SC SCH (22:00)
[2017-02-16] MEDS: Meropenem 500 MG in Sodium Chloride 0.9% 100 ML IVPB SCH ×3 (01:06→17:47)
[2017-02-16] MEDS: (Novolin R) Insulin Human Regular 100 units/ml vial SC SCH ×4 (07:50→22:48)
--- NOTE | 2017-02-16 08:56 | RAD ---
HISTORY: R/O PNEUMONIA COMPARISON: Comparison is made to 01/11/2017 FINDINGS: LUNGS: No active pulmonary disease. PLEURA: No significant pleural effusion identified, no pneumothorax apparent. CARDIOVASCULAR: Normal. OSSEOUS STRUCTURES: No significant abnormalities. VISUALIZED UPPER ABDOMEN: Normal. OTHER FINDINGS: None. IMPRESSION: No active disease.
[2017-02-16 09:15] LABS: BASO # 0.1 K/uL (0.0-0.2); BASO % 0.4 % (0.0-2.0); EOS # 0.1 K/uL (0.0-0.7); EOS % 0.5 % (0.0-4.0); HEMATOCRIT 23.8 % (34.0-47.0); LYMPH # 1.6 K/uL (1.0-4.3); LYMPH % 9.9 % (20.0-40.0); MEAN CELL VOLUME 91.7 fL (81.0-99.0); MEAN CORPUSCULAR HEMOGLOBIN 30.1 pg (27.0-31.0); MEAN CORPUSCULAR HGB CONC 32.8 g/dL (33.0-37.0); MONO # 1.3 K/uL (0.0-0.8); MONO % 7.6 % (0.0-10.0); PLATELET COUNT 256 K/uL (130-400); RED CELL DISTRIBUTION WIDTH 17.2 % (11.5-14.5); WHITE BLOOD COUNT 16.5 K/uL (4.8-10.8)
--- NOTE | 2017-02-16 09:15 | CP.PCM.PN ---
Subjective - Date & Time of Evaluation Date of Evaluation: 02/16/17 Time of Evaluation: 14:46 - Subjective Subjective: Podiatry progress note- Dr. Ordonez: 51 yo female patient seen at bedside this afternoon 4 days s/p right foot Lisfranc amputation. Pt states she has not taken any medications for pain but that she is definitely feeling discomfort in the right foot. Pt states she does not wish to take any pain pills due to her bad history with narcotics. Pt says she had a fever this morning but feels a little better now. Pt denies c/sob/cp/ weakness/dizziness. Objective - Vital Signs/Intake and Output Vital Signs (last 24 hours): Temp Pulse Resp BP Pulse Ox 100.3 F H 94 H 20 151/77 H 99 02/16/17 09:00 02/16/17 07:00 02/16/17 07:00 02/16/17 07:00 02/16/17 07:00 Intake and Output: 02/16/17 02/16/17 06:59 18:59 Intake Total 780 Balance 780 - Medications Medications: Current Medications Acetaminophen (Tylenol 325mg Tab) 650 mg PO Q4 [facility] Last Admin: 02/16/17 07:50 Dose: 650 mg Amlodipine Besylate (Norvasc) 10 mg PO DAILY [facility] Last Admin: 02/15/17 10:02 Dose: Not Given Aspirin (Ecotrin) 81 mg PO DAILY [facility] Last Admin: 02/15/17 10:05 Dose: 81 mg Calcium Acetate (Phoslo) 2,668 mg PO TIDCC [facility] Last Admin: 02/16/17 07:49 Dose: 2,668 mg Carvedilol (Coreg) 12.5 mg PO BID [facility] Last Admin: 02/15/17 20:34 Dose: Not Given Clopidogrel Bisulfate (Plavix) 75 mg PO DAILY [facility] Last Admin: 02/15/17 10:02 Dose: 75 mg Collagenase (Santyl) 1 gm EXT DAILY [facility] Last Admin: 02/15/17 10:07 Dose: Not Given Diphenhydramine HCl (Benadryl) 25 mg IVP Q6 PRN PRN Reason: Itching / Pruritus Epoetin Alec (Procrit) 10,000 unit SC MWF [facility] Last Admin: 02/15/17 10:00 Dose: 10,000 unit Ferrous Sulfate (Feosol) 325 mg PO DAILY [facility] Last Admin: 02/15/17 10:00 Dose: Not Given Meropenem 500 mg/ Sodium (Chloride) 100 mls @ 100 mls/hr IVPB Q8H [facility] Last Admin: 02/16/17 01:06 Dose: 100 mls/hr Insulin Glargine (Lantus) 20 unit SC [facility] Last Admin: 02/14/17 21:31 Dose: 20 units Insulin Human Regular (Novolin R) 0 unit SC [facility] PRN Reason: Protocol Last Admin: 02/16/17 07:50 Dose: 6 unit Losartan Potassium (Cozaar) 100 mg PO DAILY@1800 [facility] Last Admin: 02/15/17 20:34 Dose: 100 mg Morphine Sulfate (Morphine) 2 mg IVP Q4 PRN PRN Reason: Pain, moderate (4-7) Last Admin: 02/16/17 06:54 Dose: 2 mg Ondansetron HCl (Zofran Inj) 4 mg IVP Q8H PRN PRN Reason: Nausea/Vomiting Rosuvastatin Calcium (Crestor) 10 mg PO [facility] Last Admin: 02/15/17 22:56 Dose: 10 mg - Labs Labs: 02/15/17 07:23 02/15/17 07:23 PT 11.1 SECONDS (9.7-12.2) 02/12/17 07:14 INR 1.0 02/12/17 07:14 APTT 32 SECONDS (21-34) 02/12/17 07:14 - Constitutional Appears: Well, Non-toxic, No Acute Distress - Extremities Exam Additional comments: RLE exam: Dressing to right foot appears C/D/I on arrival VASC- DP pulse is palpable, PT pulse non-palpable, skin temp runs warm to warm ( from proximal to distal), CFT < 3 sec to amputation flap, no pedal edema DERM- surgical incision site appears well-coapted, sutures are intact with no signs of over-tensioning, no dehiscence noted, no fluctuance, no cellulitis, no purulence, no drainage NEURO- pedal sensation is intact ORTHO- tenderness to palpation lateral aspect of distal stump - Neurological Exam Neurological Exam: Alert, Awake, Oriented x3 - Psychiatric Exam Psychiatric exam: Normal Affect, Normal Mood Assessment and Plan - Assessment and Plan (Free Text) Assessment: 51 yo female patient 4 days s/p right foot Lisfranc amputation Plan: Pt S&E at bedside Discussed plan in detail with attending Dr. Ordonez Chart labs and vitals reviewed: tmax 101.6 at 8am this morning, down to 99.1 at 10am WBC 16.5, trending back eddie (19.4 yesterday) H/H increasing (7.8/23.8) Wound cx from drain site pending Cont. IV abx as per Dr. Cronin Blood cx pending - prelim no growth Surgical site cleansed with peroxide Saline W2D dressing applied. Dressing to be changed q12h Discussed with patient importance of taken pain medication (Tylenol), and to be compliant with IV abx Prognosis for limb salvage is poor Will follow closely.
[2017-02-16] MEDS: Collagenase 250 Units/gm Ointment(30 gm) EXT SCH (09:55)
--- NOTE | 2017-02-16 11:02 | CP.PCM.PN ---
Subjective - Date & Time of Evaluation Date of Evaluation: 02/16/17 Time of Evaluation: 10:59 - Subjective Subjective: feels fine sleepy but arousable no complaints ROS- 10 point ROS negative Objective - Vital Signs/Intake and Output Vital Signs (last 24 hours): Temp Pulse Resp BP Pulse Ox 99.1 F 94 H 20 132/60 99 02/16/17 10:00 02/16/17 07:00 02/16/17 07:00 02/16/17 10:01 02/16/17 07:00 Intake and Output: 02/16/17 02/16/17 06:59 18:59 Intake Total 780 Balance 780 - Medications Medications: Current Medications Acetaminophen (Tylenol 325mg Tab) 650 mg PO Q4 [facility] Last Admin: 02/16/17 07:50 Dose: 650 mg Amlodipine Besylate (Norvasc) 10 mg PO DAILY [facility] Last Admin: 02/16/17 09:55 Dose: 10 mg Aspirin (Ecotrin) 81 mg PO DAILY [facility] Last Admin: 02/16/17 09:55 Dose: 81 mg Calcium Acetate (Phoslo) 2,668 mg PO TIDCC [facility] Last Admin: 02/16/17 07:49 Dose: 2,668 mg Carvedilol (Coreg) 12.5 mg PO BID [facility] Last Admin: 02/16/17 10:01 Dose: 12.5 mg Clopidogrel Bisulfate (Plavix) 75 mg PO DAILY [facility] Last Admin: 02/16/17 09:55 Dose: 75 mg Collagenase (Santyl) 1 gm EXT DAILY [facility] Last Admin: 02/16/17 09:55 Dose: 1 applic Diphenhydramine HCl (Benadryl) 25 mg IVP Q6 PRN PRN Reason: Itching / Pruritus Epoetin Alec (Procrit) 10,000 unit SC MWF [facility] Last Admin: 02/15/17 10:00 Dose: 10,000 unit Ferrous Sulfate (Feosol) 325 mg PO DAILY [facility] Last Admin: 02/16/17 09:55 Dose: 325 mg Meropenem 500 mg/ Sodium (Chloride) 100 mls @ 100 mls/hr IVPB Q8H [facility] Last Admin: 02/16/17 09:54 Dose: 100 mls/hr Insulin Glargine (Lantus) 20 unit SC HS [facility] Last Admin: 02/14/17 21:31 Dose: 20 units Insulin Human Regular (Novolin R) 0 unit SC ACHS [facility] PRN Reason: Protocol Last Admin: 02/16/17 07:50 Dose: 6 unit Losartan Potassium (Cozaar) 100 mg PO DAILY@1800 [facility] Last Admin: 02/15/17 20:34 Dose: 100 mg Morphine Sulfate (Morphine) 2 mg IVP Q4 PRN PRN Reason: Pain, moderate (4-7) Last Admin: 02/16/17 06:54 Dose: 2 mg Ondansetron HCl (Zofran Inj) 4 mg IVP Q8H PRN PRN Reason: Nausea/Vomiting Rosuvastatin Calcium (Crestor) 10 mg PO HS [facility] Last Admin: 02/15/17 22:56 Dose: 10 mg - Labs Labs: 02/16/17 07:55 02/15/17 07:23 PT 11.1 SECONDS (9.7-12.2) 02/12/17 07:14 INR 1.0 02/12/17 07:14 APTT 32 SECONDS (21-34) 02/12/17 07:14 - Constitutional Appears: Well, Non-toxic - Head Exam Head Exam: ATRAUMATIC, NORMOCEPHALIC - Eye Exam Eye Exam: EOMI, Normal appearance, PERRL - ENT Exam ENT Exam: Mucous Membranes Moist - Respiratory Exam Respiratory Exam: Clear to Ausculation Bilateral. absent: Rhonchi, Wheezes - Cardiovascular Exam Cardiovascular Exam: REGULAR RHYTHM, +S1, +S2 - GI/Abdominal Exam GI & Abdominal Exam: Soft. absent: Tenderness - Extremities Exam Extremities Exam: absent: Pedal Edema Additional comments: right TMA - Neurological Exam Neurological Exam: Alert, Awake, Oriented x3 - Psychiatric Exam Psychiatric exam: Normal Affect, Normal Mood - Skin Skin Exam: Dry, Warm Assessment and Plan (1) Gangrene of right foot Status: Acute (2) Diabetes mellitus Status: Acute (3) ESRD on peritoneal dialysis Status: Acute (4) Foot infection Status: Acute - Assessment and Plan (Free Text) Plan: continue PD good potassium levels wound care maintain ABx
[2017-02-16 11:53] LABS: EOSINOPHIL 1 % (0-4); NEUTROPHIL 82 % (50-75); TOTAL CELLS COUNTED 100
--- NOTE | 2017-02-16 19:03 | CP.PCM.PN ---
Subjective - Date & Time of Evaluation Date of Evaluation: 02/16/17 Time of Evaluation: 19:03 - Subjective Subjective: Still having increasing pain. Feeling uncomfortable. Not taking any pain medicine at this time. Status post right foot metatarsal amputation. Low-grade fever noted. She is feeling otherwise okay Vital signs stable. Placement of peritoneal dialysis On IV antibiotic as per the ID. We'll continue the current treatment. Objective - Vital Signs/Intake and Output Vital Signs (last 24 hours): Temp Pulse Resp BP Pulse Ox 99.6 F 92 H 20 129/75 95 02/16/17 17:48 02/16/17 15:00 02/16/17 15:00 02/16/17 17:48 02/16/17 15:00 - Medications Medications: Current Medications Acetaminophen (Tylenol 325mg Tab) 650 mg PO Q4 [facility] Last Admin: 02/16/17 16:00 Dose: Not Given Amlodipine Besylate (Norvasc) 10 mg PO DAILY [facility] Last Admin: 02/16/17 09:55 Dose: 10 mg Aspirin (Ecotrin) 81 mg PO DAILY [facility] Last Admin: 02/16/17 09:55 Dose: 81 mg Calcium Acetate (Phoslo) 2,668 mg PO TIDCC [facility] Last Admin: 02/16/17 15:39 Dose: Not Given Carvedilol (Coreg) 12.5 mg PO BID [facility] Last Admin: 02/16/17 10:01 Dose: 12.5 mg Clopidogrel Bisulfate (Plavix) 75 mg PO DAILY [facility] Last Admin: 02/16/17 09:55 Dose: 75 mg Collagenase (Santyl) 1 gm EXT DAILY [facility] Last Admin: 02/16/17 09:55 Dose: 1 applic Diphenhydramine HCl (Benadryl) 25 mg IVP Q6 PRN PRN Reason: Itching / Pruritus Epoetin Alec (Procrit) 10,000 unit SC MWF [facility] Last Admin: 02/15/17 10:00 Dose: 10,000 unit Ferrous Sulfate (Feosol) 325 mg PO DAILY [facility] Last Admin: 02/16/17 09:55 Dose: 325 mg Meropenem 500 mg/ Sodium (Chloride) 100 mls @ 100 mls/hr IVPB Q8H [facility] Last Admin: 02/16/17 17:47 Dose: 100 mls/hr Insulin Glargine (Lantus) 20 unit SC HS [facility] Last Admin: 02/15/17 22:00 Dose: Not Given Insulin Human Regular (Novolin R) 0 unit SC [facility] PRN Reason: Protocol Last Admin: 02/16/17 16:55 Dose: Not Given Losartan Potassium (Cozaar) 100 mg PO DAILY@1800 [facility] Last Admin: 02/15/17 20:34 Dose: 100 mg Morphine Sulfate (Morphine) 2 mg IVP Q4 PRN PRN Reason: Pain, moderate (4-7) Last Admin: 02/16/17 06:54 Dose: 2 mg Ondansetron HCl (Zofran Inj) 4 mg IVP Q8H PRN PRN Reason: Nausea/Vomiting Rosuvastatin Calcium (Crestor) 10 mg PO HS [facility] Last Admin: 02/15/17 22:56 Dose: 10 mg - Labs Labs: 02/16/17 07:55 02/15/17 07:23 PT 11.1 SECONDS (9.7-12.2) 02/12/17 07:14 INR 1.0 02/12/17 07:14 APTT 32 SECONDS (21-34) 02/12/17 07:14
--- NOTE | 2017-02-16 19:03 | CP.PCM.PN ---
Subjective - Date & Time of Evaluation Date of Evaluation: 02/15/17 Time of Evaluation: 19:03 - Subjective Subjective: Patient still having episodes of pain in the legs. Spoke to the patient in details about the pain medication. Overall clinically stable at this time. Right foot nonhealing ulcer, being managed by the group segment consultant at this time. Continue glucose monitoring. Infectious disease evaluation. IV antibiotics. We'll follow the patient Objective - Vital Signs/Intake and Output Vital Signs (last 24 hours): Temp Pulse Resp BP Pulse Ox 99.6 F 92 H 20 129/75 95 02/16/17 17:48 02/16/17 15:00 02/16/17 15:00 02/16/17 17:48 02/16/17 15:00 - Medications Medications: Current Medications Acetaminophen (Tylenol 325mg Tab) 650 mg PO Q4 [facility] Last Admin: 02/16/17 16:00 Dose: Not Given Amlodipine Besylate (Norvasc) 10 mg PO DAILY [facility] Last Admin: 02/16/17 09:55 Dose: 10 mg Aspirin (Ecotrin) 81 mg PO DAILY [facility] Last Admin: 02/16/17 09:55 Dose: 81 mg Calcium Acetate (Phoslo) 2,668 mg PO TIDCC [facility] Last Admin: 02/16/17 15:39 Dose: Not Given Carvedilol (Coreg) 12.5 mg PO BID [facility] Last Admin: 02/16/17 10:01 Dose: 12.5 mg Clopidogrel Bisulfate (Plavix) 75 mg PO DAILY [facility] Last Admin: 02/16/17 09:55 Dose: 75 mg Collagenase (Santyl) 1 gm EXT DAILY [facility] Last Admin: 02/16/17 09:55 Dose: 1 applic Diphenhydramine HCl (Benadryl) 25 mg IVP Q6 PRN PRN Reason: Itching / Pruritus Epoetin Alec (Procrit) 10,000 unit SC MWF [facility] Last Admin: 02/15/17 10:00 Dose: 10,000 unit Ferrous Sulfate (Feosol) 325 mg PO DAILY [facility] Last Admin: 02/16/17 09:55 Dose: 325 mg Meropenem 500 mg/ Sodium (Chloride) 100 mls @ 100 mls/hr IVPB Q8H [facility] Last Admin: 02/16/17 17:47 Dose: 100 mls/hr Insulin Glargine (Lantus) 20 unit SC HS [facility] Last Admin: 02/15/17 22:00 Dose: Not Given Insulin Human Regular (Novolin R) 0 unit SC [facility] PRN Reason: Protocol Last Admin: 02/16/17 16:55 Dose: Not Given Losartan Potassium (Cozaar) 100 mg PO DAILY@1800 [facility] Last Admin: 02/15/17 20:34 Dose: 100 mg Morphine Sulfate (Morphine) 2 mg IVP Q4 PRN PRN Reason: Pain, moderate (4-7) Last Admin: 02/16/17 06:54 Dose: 2 mg Ondansetron HCl (Zofran Inj) 4 mg IVP Q8H PRN PRN Reason: Nausea/Vomiting Rosuvastatin Calcium (Crestor) 10 mg PO HS [facility] Last Admin: 02/15/17 22:56 Dose: 10 mg - Labs Labs: 02/16/17 07:55 02/15/17 07:23 PT 11.1 SECONDS (9.7-12.2) 02/12/17 07:14 INR 1.0 02/12/17 07:14 APTT 32 SECONDS (21-34) 02/12/17 07:14
[2017-02-16] MEDS: (Lantus) Insulin Glargine, Recombinant SC SCH (22:50)
[2017-02-17] MEDS: Meropenem 500 MG in Sodium Chloride 0.9% 100 ML IVPB SCH ×3 (01:03→16:20)
[2017-02-17] MEDS: (Novolin R) Insulin Human Regular 100 units/ml vial SC SCH ×4 (08:21→22:08)
--- NOTE | 2017-02-17 09:03 | CP.PCM.PN ---
Subjective - Date & Time of Evaluation Date of Evaluation: 02/17/17 Time of Evaluation: 09:03 - Subjective Subjective: Podiatry progress note- Dr. Ordonez: 51 yo female patient seen at bedside this afternoon 5 days s/p right foot Lisfranc amputation. Pt states she has decided to take medication for her pain because it is very uncomfortable. Pt states nursing has been changing her dressings every day as well as podiatry dressing changes. Pt denies any fever overnight or today. Pt denies c/sob/cp/weakness/dizziness. Objective - Vital Signs/Intake and Output Vital Signs (last 24 hours): Temp Pulse Resp BP Pulse Ox 98.4 F 92 H 20 149/73 95 02/16/17 22:56 02/16/17 15:00 02/16/17 22:56 02/16/17 22:56 02/16/17 15:00 - Medications Medications: Current Medications Acetaminophen (Tylenol 325mg Tab) 650 mg PO Q4 [facility] Last Admin: 02/17/17 08:56 Dose: 650 mg Amlodipine Besylate (Norvasc) 10 mg PO DAILY [facility] Last Admin: 02/16/17 09:55 Dose: 10 mg Aspirin (Ecotrin) 81 mg PO DAILY [facility] Last Admin: 02/16/17 09:55 Dose: 81 mg Calcium Acetate (Phoslo) 2,668 mg PO TIDCC [facility] Last Admin: 02/17/17 08:55 Dose: 2,668 mg Carvedilol (Coreg) 12.5 mg PO BID [facility] Last Admin: 02/16/17 18:00 Dose: Not Given Clopidogrel Bisulfate (Plavix) 75 mg PO DAILY [facility] Last Admin: 02/16/17 09:55 Dose: 75 mg Collagenase (Santyl) 1 gm EXT DAILY [facility] Last Admin: 02/16/17 09:55 Dose: 1 applic Diphenhydramine HCl (Benadryl) 25 mg IVP Q6 PRN PRN Reason: Itching / Pruritus Epoetin Alec (Procrit) 10,000 unit SC MWF [facility] Last Admin: 02/15/17 10:00 Dose: 10,000 unit Ferrous Sulfate (Feosol) 325 mg PO DAILY [facility] Last Admin: 02/16/17 09:55 Dose: 325 mg Meropenem 500 mg/ Sodium (Chloride) 100 mls @ 100 mls/hr IVPB Q8H [facility] Last Admin: 02/17/17 08:55 Dose: 100 mls/hr Insulin Glargine (Lantus) 20 unit SC [facility] Last Admin: 02/16/17 22:50 Dose: 20 units Insulin Human Regular (Novolin R) 0 unit SC ACHS [facility] PRN Reason: Protocol Last Admin: 02/17/17 08:21 Dose: Not Given Losartan Potassium (Cozaar) 100 mg PO DAILY@1800 [facility] Last Admin: 02/16/17 18:00 Dose: Not Given Morphine Sulfate (Morphine) 2 mg IVP Q4 PRN PRN Reason: Pain, moderate (4-7) Last Admin: 02/17/17 01:01 Dose: 2 mg Ondansetron HCl (Zofran Inj) 4 mg IVP Q8H PRN PRN Reason: Nausea/Vomiting Rosuvastatin Calcium (Crestor) 10 mg PO [facility] Last Admin: 02/16/17 22:50 Dose: 10 mg - Labs Labs: 02/16/17 07:55 02/15/17 07:23 PT 11.1 SECONDS (9.7-12.2) 02/12/17 07:14 INR 1.0 02/12/17 07:14 APTT 32 SECONDS (21-34) 02/12/17 07:14 - Constitutional Appears: Well, Non-toxic, No Acute Distress - Extremities Exam Additional comments: RLE exam: Dressing to right foot appears C/D/I on arrival VASC- DP pulse is palpable, PT pulse non-palpable, skin temp runs warm to warm ( from proximal to distal), CFT < 3 sec to amputation flap, no pedal edema DERM- surgical incision site appears well-coapted, sutures are intact with no signs of over-tensioning, no dehiscence noted, no fluctuance, no cellulitis, no purulence, no drainage NEURO- pedal sensation is intact ORTHO- tenderness to palpation of all aspects of amputation stump - Neurological Exam Neurological Exam: Alert, Awake, Oriented x3 - Psychiatric Exam Psychiatric exam: Normal Affect, Normal Mood Assessment and Plan - Assessment and Plan (Free Text) Assessment: 51 y/o female patient 5 days s/p right foot Lisfranc amputation Plan: Pt S&E at bedside Discussed plan in detail with attending Dr. Ordonez Chart labs and vitals reviewed: afebrile overnight and today, WBC 16.5 Wound cx prelim gram neg rods, gram pos cocci, pending final rpt Cont. IV abx as per Dr. Cronin Blood cx pending - prelim no growth Surgical site cleansed with hydrogen peroxide Saline W2D dressing applied. Dressing to be changed q12h Discussed with patient importance of taking pain medication (Tylenol) to help manage discomfort as well as fever, and to be compliant with IV abx Prognosis for limb salvage is poor Will follow closely.
[2017-02-17] MEDS: Collagenase 250 Units/gm Ointment(30 gm) EXT SCH (10:39)
--- NOTE | 2017-02-17 15:25 | CP.PCM.PN ---
Subjective - Date & Time of Evaluation Date of Evaluation: 02/17/17 Time of Evaluation: 09:00 - Subjective Subjective: slow progress iv rx in progress Objective - Vital Signs/Intake and Output Vital Signs (last 24 hours): Temp Pulse Resp BP Pulse Ox 99.4 F 92 H 20 125/68 95 02/17/17 09:03 02/17/17 09:03 02/17/17 09:03 02/17/17 10:36 02/17/17 09:03 - Medications Medications: Current Medications Acetaminophen (Tylenol 325mg Tab) 650 mg PO Q4 [facility] Last Admin: 02/17/17 08:56 Dose: 650 mg Amlodipine Besylate (Norvasc) 10 mg PO DAILY [facility] Last Admin: 02/17/17 10:36 Dose: 10 mg Aspirin (Ecotrin) 81 mg PO DAILY [facility] Last Admin: 02/17/17 10:37 Dose: 81 mg Calcium Acetate (Phoslo) 2,668 mg PO TIDCC [facility] Last Admin: 02/17/17 14:38 Dose: Not Given Carvedilol (Coreg) 12.5 mg PO BID [facility] Last Admin: 02/17/17 10:36 Dose: 12.5 mg Clopidogrel Bisulfate (Plavix) 75 mg PO DAILY [facility] Last Admin: 02/17/17 10:36 Dose: 75 mg Collagenase (Santyl) 1 gm EXT DAILY [facility] Last Admin: 02/17/17 10:39 Dose: Not Given Diphenhydramine HCl (Benadryl) 25 mg IVP Q6 PRN PRN Reason: Itching / Pruritus Epoetin Alec (Procrit) 10,000 unit SC MWF [facility] Last Admin: 02/15/17 10:00 Dose: 10,000 unit Ferrous Sulfate (Feosol) 325 mg PO DAILY [facility] Last Admin: 02/17/17 10:39 Dose: Not Given Meropenem 500 mg/ Sodium (Chloride) 100 mls @ 100 mls/hr IVPB Q8H [facility] Last Admin: 02/17/17 08:55 Dose: 100 mls/hr Insulin Glargine (Lantus) 20 unit SC HS [facility] Last Admin: 02/16/17 22:50 Dose: 20 units Insulin Human Regular (Novolin R) 0 unit SC ACHS [facility] PRN Reason: Protocol Last Admin: 02/17/17 12:00 Dose: Not Given Losartan Potassium (Cozaar) 100 mg PO DAILY@1800 [facility] Last Admin: 02/16/17 18:00 Dose: Not Given Morphine Sulfate (Morphine) 2 mg IVP Q4 PRN PRN Reason: Pain, moderate (4-7) Last Admin: 02/17/17 08:58 Dose: 2 mg Ondansetron HCl (Zofran Inj) 4 mg IVP Q8H PRN PRN Reason: Nausea/Vomiting Rosuvastatin Calcium (Crestor) 10 mg PO HS [facility] Last Admin: 02/16/17 22:50 Dose: 10 mg - Labs Labs: 02/16/17 07:55 02/15/17 07:23 PT 11.1 SECONDS (9.7-12.2) 02/12/17 07:14 INR 1.0 02/12/17 07:14 APTT 32 SECONDS (21-34) 02/12/17 07:14 - Constitutional Appears: Non-toxic, Chronically Ill - Head Exam Head Exam: NORMOCEPHALIC - Eye Exam Eye Exam: PERRL - ENT Exam ENT Exam: absent: Mucous Membranes Dry - Neck Exam Neck Exam: absent: Lymphadenopathy, Thyromegaly - Respiratory Exam Respiratory Exam: Decreased Breath Sounds, Clear to Ausculation Bilateral - Cardiovascular Exam Cardiovascular Exam: REGULAR RHYTHM - GI/Abdominal Exam GI & Abdominal Exam: Distended, Soft - Rectal Exam Rectal Exam: Deferred - Extremities Exam Extremities Exam: absent: Calf Tenderness, Pedal Edema, Tenderness - Back Exam Back Exam: NORMAL INSPECTION. absent: CVA tenderness (L), CVA tenderness (R) - Neurological Exam Neurological Exam: Alert, Awake, Oriented x3 Assessment and Plan (1) Gangrene of right foot Status: Acute (2) Chronic anemia Status: Acute (3) Chronic congestive heart failure Status: Acute (4) Diabetes mellitus Status: Acute (5) ESRD on peritoneal dialysis Status: Acute - Assessment and Plan (Free Text) Assessment: cont wound care and iv antibiotics
[2017-02-17] MEDS ORDERED: Vancomycin 1 gm/NS 200 ml 1 GM/200 ML BAG IVPB ONE (16:00)
[2017-02-17] MEDS: (Lantus) Insulin Glargine, Recombinant SC SCH (22:07)
[2017-02-18] MEDS: Meropenem 500 MG in Sodium Chloride 0.9% 100 ML IVPB SCH ×3 (00:02→17:58)
[2017-02-18] MEDS: DiphenhydrAMINE 50 mg/ml Inj IVP PRN (04:08)
[2017-02-18 07:17] LABS: BASO # 0.1 K/uL (0.0-0.2); BASO % 0.4 % (0.0-2.0); EOS # 0.1 K/uL (0.0-0.7); EOS % 0.8 % (0.0-4.0); LYMPH # 1.4 K/uL (1.0-4.3); LYMPH % 10.3 % (20.0-40.0); MEAN CELL VOLUME 91.4 fL (81.0-99.0); MEAN CORPUSCULAR HEMOGLOBIN 29.9 pg (27.0-31.0); MEAN CORPUSCULAR HGB CONC 32.7 g/dL (33.0-37.0); MEAN PLATELET VOLUME 7.7 fL (7.2-11.7); MONO # 1.1 K/uL (0.0-0.8); MONO % 8.1 % (0.0-10.0); RED CELL DISTRIBUTION WIDTH 16.3 % (11.5-14.5); WHITE BLOOD COUNT 14.1 K/uL (4.8-10.8)
[2017-02-18] MEDS: (Novolin R) Insulin Human Regular 100 units/ml vial SC SCH ×4 (07:24→23:00)
[2017-02-18 08:39] LABS: ALB/GLOB RATIO 0.8 (1.0-2.1); BILIRUBIN,TOTAL 0.3 mg/dL (0.2-1.3); CALCIUM 7.8 mg/dl (8.6-10.4); POTASSIUM 4.5 mmol/L (3.6-5.2); TOTAL PROTEIN 6.1 g/dL (6.3-8.3)
[2017-02-18] MEDS: EPOETIN ALFA 10,000 UNIT/ML ML SC SCH (09:55)
[2017-02-18] MEDS: Collagenase 250 Units/gm Ointment(30 gm) EXT SCH (09:57)
--- NOTE | 2017-02-18 12:08 | CP.PCM.PN ---
Subjective - Date & Time of Evaluation Date of Evaluation: 02/18/17 Time of Evaluation: 10:00 - Subjective Subjective: vre wound zyvox added Objective - Vital Signs/Intake and Output Vital Signs (last 24 hours): Temp Pulse Resp BP Pulse Ox 99.7 F H 92 H 20 144/76 95 02/18/17 08:00 02/18/17 09:53 02/18/17 08:00 02/18/17 09:56 02/18/17 08:00 - Medications Medications: Current Medications Acetaminophen (Tylenol 325mg Tab) 650 mg PO Q4 [facility] Last Admin: 02/18/17 08:00 Dose: Not Given Amlodipine Besylate (Norvasc) 10 mg PO DAILY [facility] Last Admin: 02/18/17 09:56 Dose: 10 mg Aspirin (Ecotrin) 81 mg PO DAILY [facility] Last Admin: 02/18/17 09:56 Dose: 81 mg Calcium Acetate (Phoslo) 2,668 mg PO TIDCC [facility] Last Admin: 02/18/17 08:00 Dose: Not Given Carvedilol (Coreg) 12.5 mg PO BID [facility] Last Admin: 02/18/17 09:56 Dose: 12.5 mg Clopidogrel Bisulfate (Plavix) 75 mg PO DAILY [facility] Last Admin: 02/18/17 09:56 Dose: 75 mg Collagenase (Santyl) 1 gm EXT DAILY [facility] Last Admin: 02/18/17 09:57 Dose: Not Given Diphenhydramine HCl (Benadryl) 25 mg IVP Q6 PRN PRN Reason: Itching / Pruritus Last Admin: 02/18/17 04:08 Dose: 25 mg Epoetin Laec (Procrit) 10,000 unit SC MWF [facility] Last Admin: 02/18/17 09:55 Dose: 10,000 unit Ferrous Sulfate (Feosol) 325 mg PO DAILY [facility] Last Admin: 02/18/17 09:57 Dose: Not Given Meropenem 500 mg/ Sodium (Chloride) 100 mls @ 100 mls/hr IVPB Q8H [facility] Last Admin: 02/18/17 09:55 Dose: 100 mls/hr Insulin Glargine (Lantus) 20 unit SC HS [facility] Last Admin: 02/17/17 22:07 Dose: Not Given Insulin Human Regular (Novolin R) 0 unit SC ACHS [facility] PRN Reason: Protocol Last Admin: 02/18/17 07:24 Dose: Not Given Losartan Potassium (Cozaar) 100 mg PO DAILY@1800 [facility] Last Admin: 02/17/17 18:00 Dose: Not Given Morphine Sulfate (Morphine) 2 mg IVP Q4 PRN PRN Reason: Pain, moderate (4-7) Last Admin: 02/18/17 09:54 Dose: 2 mg Ondansetron HCl (Zofran Inj) 4 mg IVP Q8H PRN PRN Reason: Nausea/Vomiting Rosuvastatin Calcium (Crestor) 10 mg PO HS [facility] Last Admin: 02/17/17 22:07 Dose: Not Given - Labs Labs: 02/18/17 07:05 02/18/17 07:05 PT 11.1 SECONDS (9.7-12.2) 02/12/17 07:14 INR 1.0 02/12/17 07:14 APTT 32 SECONDS (21-34) 02/12/17 07:14 Assessment and Plan (1) Gangrene of right foot Status: Acute (2) Chronic anemia Status: Acute (3) Chronic congestive heart failure Status: Acute (4) Diabetes mellitus Status: Acute (5) ESRD on peritoneal dialysis Status: Acute
--- NOTE | 2017-02-18 12:30 | CP.PCM.PN ---
Subjective - Date & Time of Evaluation Date of Evaluation: 02/18/17 Time of Evaluation: 14:30 - Subjective Subjective: Podiatry progress note- Dr. Ordonez: 51 yo female patient seen at bedside today 6 days s/p right foot Lisfranc amputation. Pt reports that she still does have pain to the foot however pain medication is helping. Does appear somewhat lethargic today. Says nausea is somewhat better and has been trying to eat more. Says she did have fevers over the weekend but not today. Denies v/c/sob/cp. Objective - Vital Signs/Intake and Output Vital Signs (last 24 hours): Temp Pulse Resp BP Pulse Ox 99.7 F H 92 H 20 144/76 95 02/18/17 08:00 02/18/17 09:53 02/18/17 08:00 02/18/17 09:56 02/18/17 08:00 - Medications Medications: Current Medications Acetaminophen (Tylenol 325mg Tab) 650 mg PO Q4 [facility] Last Admin: 02/18/17 08:00 Dose: Not Given Amlodipine Besylate (Norvasc) 10 mg PO DAILY [facility] Last Admin: 02/18/17 09:56 Dose: 10 mg Aspirin (Ecotrin) 81 mg PO DAILY [facility] Last Admin: 02/18/17 09:56 Dose: 81 mg Calcium Acetate (Phoslo) 2,668 mg PO TIDCC [facility] Last Admin: 02/18/17 08:00 Dose: Not Given Carvedilol (Coreg) 12.5 mg PO BID [facility] Last Admin: 02/18/17 09:56 Dose: 12.5 mg Clopidogrel Bisulfate (Plavix) 75 mg PO DAILY [facility] Last Admin: 02/18/17 09:56 Dose: 75 mg Collagenase (Santyl) 1 gm EXT DAILY [facility] Last Admin: 02/18/17 09:57 Dose: Not Given Diphenhydramine HCl (Benadryl) 25 mg IVP Q6 PRN PRN Reason: Itching / Pruritus Last Admin: 02/18/17 04:08 Dose: 25 mg Epoetin Alec (Procrit) 10,000 unit SC MWF [facility] Last Admin: 02/18/17 09:55 Dose: 10,000 unit Ferrous Sulfate (Feosol) 325 mg PO DAILY [facility] Last Admin: 02/18/17 09:57 Dose: Not Given Meropenem 500 mg/ Sodium (Chloride) 100 mls @ 100 mls/hr IVPB Q8H [facility] Last Admin: 02/18/17 09:55 Dose: 100 mls/hr Linezolid (Zyvox 600mg/300ml D5w) 600 mg in 300 mls @ 200 mls/hr IVPB Q12H [facility] Insulin Glargine (Lantus) 20 unit SC [facility] Last Admin: 02/17/17 22:07 Dose: Not Given Insulin Human Regular (Novolin R) 0 unit SC [facility] PRN Reason: Protocol Last Admin: 02/18/17 07:24 Dose: Not Given Losartan Potassium (Cozaar) 100 mg PO DAILY@1800 [facility] Last Admin: 02/17/17 18:00 Dose: Not Given Morphine Sulfate (Morphine) 2 mg IVP Q4 PRN PRN Reason: Pain, moderate (4-7) Last Admin: 02/18/17 09:54 Dose: 2 mg Ondansetron HCl (Zofran Inj) 4 mg IVP Q8H PRN PRN Reason: Nausea/Vomiting Rosuvastatin Calcium (Crestor) 10 mg PO [facility] Last Admin: 02/17/17 22:07 Dose: Not Given - Labs Labs: 02/18/17 07:05 02/18/17 07:05 PT 11.1 SECONDS (9.7-12.2) 02/12/17 07:14 INR 1.0 02/12/17 07:14 APTT 32 SECONDS (21-34) 02/12/17 07:14 - Constitutional Appears: Non-toxic, No Acute Distress - Extremities Exam Extremities Exam: absent: Calf Tenderness Additional comments: RLE exam: Dressing to right foot appears C/D/I on arrival VASC- DP pulse is palpable, PT pulse non-palpable, skin temp runs warm to warm ( from proximal to distal), CFT < 3 sec to amputation flap, no pedal edema DERM- surgical incision site appears well-coapted, sutures are intact with no signs of over-tensioning, no dehiscence noted, no fluctuance, no cellulitis, no purulence, no drainage NEURO- pedal sensation is intact ORTHO- tenderness to palpation of all aspects of amputation stump - Neurological Exam Neurological Exam: Alert, Awake - Psychiatric Exam Psychiatric exam: Anxious Assessment and Plan - Assessment and Plan (Free Text) Assessment: 51 y/o female patient 6 days s/p right foot Lisfranc amputation Plan: Pt S&E at bedside Discussed plan in detail with attending Dr. Ordonez Chart labs and vitals reviewed: afebrile overnight and today, WBC trending down 14.1 New wound cx (02/15/17): + for S. Marcescens & VREF ID on consult (Dr. Cronin): Linezolid and Meropenem added Blood cx: no growth Surgical site cleansed with hydrogen peroxide Saline W2D dressing applied. Discussed with patient importance of taking pain medication (Tylenol) to help manage discomfort as well as fever, and to be compliant with IV abx Prognosis for limb salvage is poor Will follow closely.
[2017-02-18] MEDS: Linezolid 600 mg in D5W 300 ml 600 MG/300 ML BAG IVPB SCH (13:30)
--- NOTE | 2017-02-18 13:43 | CP.PCM.PN ---
Subjective - Date & Time of Evaluation Date of Evaluation: 02/18/17 Time of Evaluation: 13:40 - Subjective Subjective: Alert; moderately lethargic +VRE, serratia in wound PD going well had 1 episode diarrhea Objective - Vital Signs/Intake and Output Vital Signs (last 24 hours): Temp Pulse Resp BP Pulse Ox 99.7 F H 92 H 20 144/76 95 02/18/17 08:00 02/18/17 09:53 02/18/17 08:00 02/18/17 09:56 02/18/17 08:00 - Medications Medications: Current Medications Acetaminophen (Tylenol 325mg Tab) 650 mg PO Q4 [facility] Last Admin: 02/18/17 12:45 Dose: Not Given Amlodipine Besylate (Norvasc) 10 mg PO DAILY [facility] Last Admin: 02/18/17 09:56 Dose: 10 mg Aspirin (Ecotrin) 81 mg PO DAILY [facility] Last Admin: 02/18/17 09:56 Dose: 81 mg Calcium Acetate (Phoslo) 2,668 mg PO TIDCC [facility] Last Admin: 02/18/17 12:45 Dose: Not Given Carvedilol (Coreg) 12.5 mg PO BID [facility] Last Admin: 02/18/17 09:56 Dose: 12.5 mg Clopidogrel Bisulfate (Plavix) 75 mg PO DAILY [facility] Last Admin: 02/18/17 09:56 Dose: 75 mg Collagenase (Santyl) 1 gm EXT DAILY [facility] Last Admin: 02/18/17 09:57 Dose: Not Given Diphenhydramine HCl (Benadryl) 25 mg IVP Q6 PRN PRN Reason: Itching / Pruritus Last Admin: 02/18/17 04:08 Dose: 25 mg Epoetin Alec (Procrit) 10,000 unit SC MWF [facility] Last Admin: 02/18/17 09:55 Dose: 10,000 unit Ferrous Sulfate (Feosol) 325 mg PO DAILY [facility] Last Admin: 02/18/17 09:57 Dose: Not Given Meropenem 500 mg/ Sodium (Chloride) 100 mls @ 100 mls/hr IVPB Q8H [facility] Last Admin: 02/18/17 09:55 Dose: 100 mls/hr Linezolid (Zyvox 600mg/300ml D5w) 600 mg in 300 mls @ 200 mls/hr IVPB Q12H [facility] Last Admin: 02/18/17 13:30 Dose: 200 mls/hr Insulin Glargine (Lantus) 20 unit SC [facility] Last Admin: 02/17/17 22:07 Dose: Not Given Insulin Human Regular (Novolin R) 0 unit SC ACHS [facility] PRN Reason: Protocol Last Admin: 02/18/17 12:30 Dose: Not Given Losartan Potassium (Cozaar) 100 mg PO DAILY@1800 [facility] Last Admin: 02/17/17 18:00 Dose: Not Given Morphine Sulfate (Morphine) 2 mg IVP Q4 PRN PRN Reason: Pain, moderate (4-7) Last Admin: 02/18/17 09:54 Dose: 2 mg Ondansetron HCl (Zofran Inj) 4 mg IVP Q8H PRN PRN Reason: Nausea/Vomiting Rosuvastatin Calcium (Crestor) 10 mg PO [facility] Last Admin: 02/17/17 22:07 Dose: Not Given - Labs Labs: 02/18/17 07:05 02/18/17 07:05 PT 11.1 SECONDS (9.7-12.2) 02/12/17 07:14 INR 1.0 02/12/17 07:14 APTT 32 SECONDS (21-34) 02/12/17 07:14 - Constitutional Appears: No Acute Distress, Chronically Ill - Head Exam Head Exam: ATRAUMATIC, NORMAL INSPECTION - Eye Exam Eye Exam: EOMI, Normal appearance - Neck Exam Neck Exam: Normal Inspection. absent: Tenderness - Respiratory Exam Respiratory Exam: Clear to Ausculation Bilateral, NORMAL BREATHING PATTERN - Cardiovascular Exam Cardiovascular Exam: REGULAR RHYTHM, +S1 - GI/Abdominal Exam GI & Abdominal Exam: Distended, Soft - Extremities Exam Extremities Exam: Normal Inspection. absent: Tenderness - Neurological Exam Neurological Exam: Alert, CN II-XII Intact - Skin Skin Exam: Dry, Warm Assessment and Plan (1) Type 1 diabetes mellitus with diabetic nephropathy Status: Acute (2) Gangrene of right foot Status: Acute (3) End stage renal disease Status: Acute - Assessment and Plan (Free Text) Plan: Same PD IV ABs as per ID check c.diff f/u anemia
--- NOTE | 2017-02-18 19:56 | CP.PCM.PN ---
Subjective - Date & Time of Evaluation Date of Evaluation: 02/18/17 Time of Evaluation: 19:54 - Subjective Subjective: podiatry note seen wound culture noted wound cleaned by the team labs noted on antibiotic per ID will get ID and Podiatry opinion about further plan Objective - Vital Signs/Intake and Output Vital Signs (last 24 hours): Temp Pulse Resp BP Pulse Ox 98.2 F 92 H 20 114/59 L 95 02/18/17 17:42 02/18/17 17:42 02/18/17 17:42 02/18/17 17:58 02/18/17 17:42 - Medications Medications: Current Medications Acetaminophen (Tylenol 325mg Tab) 650 mg PO Q4 [facility] Last Admin: 02/18/17 16:00 Dose: Not Given Amlodipine Besylate (Norvasc) 10 mg PO DAILY [facility] Last Admin: 02/18/17 09:56 Dose: 10 mg Aspirin (Ecotrin) 81 mg PO DAILY [facility] Last Admin: 02/18/17 09:56 Dose: 81 mg Calcium Acetate (Phoslo) 2,668 mg PO TIDCC [facility] Last Admin: 02/18/17 17:49 Dose: Not Given Carvedilol (Coreg) 12.5 mg PO BID [facility] Last Admin: 02/18/17 17:58 Dose: Not Given Clopidogrel Bisulfate (Plavix) 75 mg PO DAILY [facility] Last Admin: 02/18/17 09:56 Dose: 75 mg Collagenase (Santyl) 1 gm EXT DAILY [facility] Last Admin: 02/18/17 09:57 Dose: Not Given Diphenhydramine HCl (Benadryl) 25 mg IVP Q6 PRN PRN Reason: Itching / Pruritus Last Admin: 02/18/17 04:08 Dose: 25 mg Epoetin Laec (Procrit) 10,000 unit SC MWF [facility] Last Admin: 02/18/17 09:55 Dose: 10,000 unit Ferrous Sulfate (Feosol) 325 mg PO DAILY [facility] Last Admin: 02/18/17 09:57 Dose: Not Given Meropenem 500 mg/ Sodium (Chloride) 100 mls @ 100 mls/hr IVPB Q8H [facility] Last Admin: 02/18/17 17:58 Dose: 100 mls/hr Linezolid (Zyvox 600mg/300ml D5w) 600 mg in 300 mls @ 200 mls/hr IVPB Q12H [facility] Last Admin: 02/18/17 13:30 Dose: 200 mls/hr Insulin Glargine (Lantus) 20 unit SC HS [facility] Last Admin: 02/17/17 22:07 Dose: Not Given Insulin Human Regular (Novolin R) 0 unit SC ACHS [facility] PRN Reason: Protocol Last Admin: 02/18/17 17:30 Dose: Not Given Losartan Potassium (Cozaar) 100 mg PO DAILY@1800 [facility] Last Admin: 02/18/17 17:58 Dose: Not Given Morphine Sulfate (Morphine) 2 mg IVP Q4 PRN PRN Reason: Pain, moderate (4-7) Last Admin: 02/18/17 14:41 Dose: 2 mg Ondansetron HCl (Zofran Inj) 4 mg IVP Q8H PRN PRN Reason: Nausea/Vomiting Rosuvastatin Calcium (Crestor) 10 mg PO HS [facility] Last Admin: 02/17/17 22:07 Dose: Not Given - Labs Labs: 02/18/17 07:05 02/18/17 07:05 PT 11.1 SECONDS (9.7-12.2) 02/12/17 07:14 INR 1.0 02/12/17 07:14 APTT 32 SECONDS (21-34) 02/12/17 07:14
[2017-02-18] MEDS: (Lantus) Insulin Glargine, Recombinant SC SCH (22:59)
[2017-02-19] MEDS: Meropenem 500 MG in Sodium Chloride 0.9% 100 ML IVPB SCH ×3 (01:36→23:00)
[2017-02-19] MEDS: (Novolin R) Insulin Human Regular 100 units/ml vial SC SCH ×4 (09:11→22:00)
--- NOTE | 2017-02-19 10:04 | CP.PCM.PN ---
Subjective - Date & Time of Evaluation Date of Evaluation: 02/19/17 Time of Evaluation: 10:03 - Subjective Subjective: seen and examined denies any abd pain nausea vomiting diarrhea pd ongoing, clear fluid Objective - Vital Signs/Intake and Output Vital Signs (last 24 hours): Temp Pulse Resp BP Pulse Ox 98.8 F 90 20 125/70 90 L 02/19/17 07:58 02/19/17 07:58 02/19/17 07:58 02/19/17 07:58 02/19/17 07:58 - Medications Medications: Current Medications Acetaminophen (Tylenol 325mg Tab) 650 mg PO Q4 [facility] Last Admin: 02/19/17 06:47 Dose: 650 mg Amlodipine Besylate (Norvasc) 10 mg PO DAILY [facility] Last Admin: 02/18/17 09:56 Dose: 10 mg Aspirin (Ecotrin) 81 mg PO DAILY [facility] Last Admin: 02/18/17 09:56 Dose: 81 mg Calcium Acetate (Phoslo) 2,668 mg PO TIDCC [facility] Last Admin: 02/19/17 09:11 Dose: 2,668 mg Carvedilol (Coreg) 12.5 mg PO BID [facility] Last Admin: 02/18/17 17:58 Dose: Not Given Clopidogrel Bisulfate (Plavix) 75 mg PO DAILY [facility] Last Admin: 02/18/17 09:56 Dose: 75 mg Collagenase (Santyl) 1 gm EXT DAILY [facility] Last Admin: 02/18/17 09:57 Dose: Not Given Diphenhydramine HCl (Benadryl) 25 mg IVP Q6 PRN PRN Reason: Itching / Pruritus Last Admin: 02/18/17 04:08 Dose: 25 mg Epoetin Alec (Procrit) 10,000 unit SC MWF [facility] Last Admin: 02/18/17 09:55 Dose: 10,000 unit Ferrous Sulfate (Feosol) 325 mg PO DAILY [facility] Last Admin: 02/18/17 09:57 Dose: Not Given Meropenem 500 mg/ Sodium (Chloride) 100 mls @ 100 mls/hr IVPB Q8H [facility] Last Admin: 02/19/17 09:15 Dose: 100 mls/hr Linezolid (Zyvox 600mg/300ml D5w) 600 mg in 300 mls @ 200 mls/hr IVPB Q12H [facility] Last Admin: 02/19/17 00:00 Dose: 200 mls/hr Insulin Glargine (Lantus) 20 unit SC [facility] Last Admin: 02/18/17 22:59 Dose: 20 units Insulin Human Regular (Novolin R) 0 unit SC [facility] PRN Reason: Protocol Last Admin: 02/19/17 09:11 Dose: 6 unit Losartan Potassium (Cozaar) 100 mg PO DAILY@1800 [facility] Last Admin: 02/18/17 17:58 Dose: Not Given Morphine Sulfate (Morphine) 2 mg IVP Q4 PRN PRN Reason: Pain, moderate (4-7) Last Admin: 02/18/17 20:40 Dose: 2 mg Ondansetron HCl (Zofran Inj) 4 mg IVP Q8H PRN PRN Reason: Nausea/Vomiting Rosuvastatin Calcium (Crestor) 10 mg PO [facility] Last Admin: 02/18/17 22:59 Dose: 10 mg - Labs Labs: 02/18/17 07:05 02/18/17 07:05 PT 11.1 SECONDS (9.7-12.2) 02/12/17 07:14 INR 1.0 02/12/17 07:14 APTT 32 SECONDS (21-34) 02/12/17 07:14 - Constitutional Appears: Non-toxic, No Acute Distress - Head Exam Head Exam: NORMAL INSPECTION - Eye Exam Eye Exam: Normal appearance - ENT Exam ENT Exam: Mucous Membranes Moist, Normal Exam - Neck Exam Neck Exam: Normal Inspection - Respiratory Exam Respiratory Exam: Clear to Ausculation Bilateral, NORMAL BREATHING PATTERN - Cardiovascular Exam Cardiovascular Exam: REGULAR RHYTHM, RRR - GI/Abdominal Exam GI & Abdominal Exam: Distended, Soft - Extremities Exam Additional comments: b/l dressing no edema - Neurological Exam Neurological Exam: Alert, Awake, CN II-XII Intact, Oriented x3 Assessment and Plan (1) Gangrene of right foot Status: Acute (2) Anemia Status: Acute (3) Diabetes mellitus Status: Acute (4) ESRD on peritoneal dialysis Status: Acute (5) Hyperkalemia Status: Acute (6) Hypertension Status: Acute - Assessment and Plan (Free Text) Assessment: maintain pd recommend blood transfusion. on anabela but poor responder
[2017-02-19] MEDS: Collagenase 250 Units/gm Ointment(30 gm) EXT SCH (10:41)
--- NOTE | 2017-02-19 11:06 | CP.PCM.PN ---
Subjective - Date & Time of Evaluation Date of Evaluation: 02/19/17 Time of Evaluation: 10:45 - Subjective Subjective: Podiatry progress note- Dr. Ordonez: 51 yo female patient seen at bedside today w/ Dr. Ordonez 7 days s/p right foot Lisfranc amputation. Pt seen resting comfortably in bed at time of visit. Does complain of some tenderness to the surgical site today, however says pain is improved. Seen eating at time of visit, reports an increased appetite today. Denies f/n/v/c/sob/cp/weakness or dizziness at this time. Denies any other problems today. Objective - Vital Signs/Intake and Output Vital Signs (last 24 hours): Temp Pulse Resp BP Pulse Ox 98.8 F 90 20 137/69 90 L 02/19/17 07:58 02/19/17 07:58 02/19/17 07:58 02/19/17 10:35 02/19/17 07:58 - Medications Medications: Current Medications Acetaminophen (Tylenol 325mg Tab) 650 mg PO Q4 [facility] Last Admin: 02/19/17 06:47 Dose: 650 mg Amlodipine Besylate (Norvasc) 10 mg PO DAILY [facility] Last Admin: 02/19/17 10:35 Dose: 10 mg Aspirin (Ecotrin) 81 mg PO DAILY [facility] Last Admin: 02/19/17 10:35 Dose: 81 mg Calcium Acetate (Phoslo) 2,668 mg PO TIDCC [facility] Last Admin: 02/19/17 09:11 Dose: 2,668 mg Carvedilol (Coreg) 12.5 mg PO BID [facility] Last Admin: 02/19/17 10:35 Dose: 12.5 mg Clopidogrel Bisulfate (Plavix) 75 mg PO DAILY [facility] Last Admin: 02/19/17 10:35 Dose: 75 mg Collagenase (Santyl) 1 gm EXT DAILY [facility] Last Admin: 02/19/17 10:41 Dose: Not Given Diphenhydramine HCl (Benadryl) 25 mg IVP Q6 PRN PRN Reason: Itching / Pruritus Last Admin: 02/18/17 04:08 Dose: 25 mg Epoetin Alec (Procrit) 10,000 unit SC MWF [facility] Last Admin: 02/18/17 09:55 Dose: 10,000 unit Ferrous Sulfate (Feosol) 325 mg PO DAILY [facility] Last Admin: 02/19/17 10:35 Dose: 325 mg Meropenem 500 mg/ Sodium (Chloride) 100 mls @ 100 mls/hr IVPB Q8H [facility] Last Admin: 02/19/17 09:15 Dose: 100 mls/hr Linezolid (Zyvox 600mg/300ml D5w) 600 mg in 300 mls @ 200 mls/hr IVPB Q12H [facility] Last Admin: 02/19/17 00:00 Dose: 200 mls/hr Insulin Glargine (Lantus) 20 unit SC [facility] Last Admin: 02/18/17 22:59 Dose: 20 units Insulin Human Regular (Novolin R) 0 unit SC [facility] PRN Reason: Protocol Last Admin: 02/19/17 09:11 Dose: 6 unit Losartan Potassium (Cozaar) 100 mg PO DAILY@1800 [facility] Last Admin: 02/18/17 17:58 Dose: Not Given Morphine Sulfate (Morphine) 2 mg IVP Q4 PRN PRN Reason: Pain, moderate (4-7) Last Admin: 02/18/17 20:40 Dose: 2 mg Ondansetron HCl (Zofran Inj) 4 mg IVP Q8H PRN PRN Reason: Nausea/Vomiting Rosuvastatin Calcium (Crestor) 10 mg PO [facility] Last Admin: 02/18/17 22:59 Dose: 10 mg - Labs Labs: 02/18/17 07:05 02/18/17 07:05 PT 11.1 SECONDS (9.7-12.2) 02/12/17 07:14 INR 1.0 02/12/17 07:14 APTT 32 SECONDS (21-34) 02/12/17 07:14 - Constitutional Appears: Non-toxic, No Acute Distress - Extremities Exam Extremities Exam: absent: Calf Tenderness Additional comments: RLE exam: Dressing to right foot appears c/d/i VASC- DP pulse is palpable, PT pulse non-palpable, skin temp runs warm to warm ( from proximal to distal), CFT < 3 sec to amputation flap, no pedal edema DERM- surgical incision site appears well-coapted, slight serosanguinous drainage noted on removal of bandage, sutures are intact with no signs of over- tensioning, no dehiscence noted, no fluctuance, no cellulitis, no purulence, distal leg temperature much improved today NEURO- pedal sensation is intact ORTHO- tenderness to palpation of all aspects of amputation stump - Neurological Exam Neurological Exam: Alert, Awake, Oriented x3 - Psychiatric Exam Psychiatric exam: Anxious Assessment and Plan - Assessment and Plan (Free Text) Assessment: 51 y/o female patient 7 days s/p right foot Lisfranc amputation Plan: Pt S&E at bedside Chart labs and vitals reviewed: afebrile, WBC trending down 14.1 New wound cx (02/15/17): + for S. Marcescens & VREF IV abx as per ID Blood cx: no growth Surgical site cleansed with hydrogen peroxide, saline W2D dressing applied with loose kerlix Discussed with pt importance of eating for good healing, advised pt to ask for pain medications if she is in pain c/w strict NWB to bilateral lower extremities Discussed with physical therapy: may perform upper body strengthening exercises and proximal leg exercises to prevent deconditioning Advised she will need to remain NWB for serval more weeks As per Dr. Ordonez pt may go to [facility] if unable to stay in hospital Prognosis for limb salvage is guarded Will follow closely.
--- NOTE | 2017-02-19 12:20 | CP.PCM.PN ---
Subjective - Date & Time of Evaluation Date of Evaluation: 02/19/17 Time of Evaluation: 07:00 - Subjective Subjective: afebrile appears comfortable nad Objective - Vital Signs/Intake and Output Vital Signs (last 24 hours): Temp Pulse Resp BP Pulse Ox 98.8 F 90 20 137/69 90 L 02/19/17 07:58 02/19/17 07:58 02/19/17 07:58 02/19/17 10:35 02/19/17 07:58 - Medications Medications: Current Medications Acetaminophen (Tylenol 325mg Tab) 650 mg PO Q4 [facility] Last Admin: 02/19/17 06:47 Dose: 650 mg Amlodipine Besylate (Norvasc) 10 mg PO DAILY [facility] Last Admin: 02/19/17 10:35 Dose: 10 mg Aspirin (Ecotrin) 81 mg PO DAILY [facility] Last Admin: 02/19/17 10:35 Dose: 81 mg Calcium Acetate (Phoslo) 2,668 mg PO TIDCC [facility] Last Admin: 02/19/17 09:11 Dose: 2,668 mg Carvedilol (Coreg) 12.5 mg PO BID [facility] Last Admin: 02/19/17 10:35 Dose: 12.5 mg Clopidogrel Bisulfate (Plavix) 75 mg PO DAILY [facility] Last Admin: 02/19/17 10:35 Dose: 75 mg Collagenase (Santyl) 1 gm EXT DAILY [facility] Last Admin: 02/19/17 10:41 Dose: Not Given Diphenhydramine HCl (Benadryl) 25 mg IVP Q6 PRN PRN Reason: Itching / Pruritus Last Admin: 02/18/17 04:08 Dose: 25 mg Epoetin Alec (Procrit) 10,000 unit SC MWF [facility] Last Admin: 02/18/17 09:55 Dose: 10,000 unit Ferrous Sulfate (Feosol) 325 mg PO DAILY [facility] Last Admin: 02/19/17 10:35 Dose: 325 mg Meropenem 500 mg/ Sodium (Chloride) 100 mls @ 100 mls/hr IVPB Q8H [facility] Last Admin: 02/19/17 09:15 Dose: 100 mls/hr Linezolid (Zyvox 600mg/300ml D5w) 600 mg in 300 mls @ 200 mls/hr IVPB Q12H [facility] Last Admin: 02/19/17 00:00 Dose: 200 mls/hr Insulin Glargine (Lantus) 20 unit SC [facility] Last Admin: 02/18/17 22:59 Dose: 20 units Insulin Human Regular (Novolin R) 0 unit SC [facility] PRN Reason: Protocol Last Admin: 02/19/17 09:11 Dose: 6 unit Losartan Potassium (Cozaar) 100 mg PO DAILY@1800 [facility] Last Admin: 02/18/17 17:58 Dose: Not Given Morphine Sulfate (Morphine) 2 mg IVP Q4 PRN PRN Reason: Pain, moderate (4-7) Last Admin: 02/18/17 20:40 Dose: 2 mg Ondansetron HCl (Zofran Inj) 4 mg IVP Q8H PRN PRN Reason: Nausea/Vomiting Rosuvastatin Calcium (Crestor) 10 mg PO [facility] Last Admin: 02/18/17 22:59 Dose: 10 mg - Labs Labs: 02/18/17 07:05 02/18/17 07:05 PT 11.1 SECONDS (9.7-12.2) 02/12/17 07:14 INR 1.0 02/12/17 07:14 APTT 32 SECONDS (21-34) 02/12/17 07:14 - Constitutional Appears: Non-toxic, Chronically Ill - Head Exam Head Exam: NORMOCEPHALIC - Eye Exam Eye Exam: PERRL - ENT Exam ENT Exam: Mucous Membranes Dry, Normal External Ear Exam - Neck Exam Neck Exam: absent: Lymphadenopathy - Respiratory Exam Respiratory Exam: Decreased Breath Sounds Assessment and Plan (1) Gangrene of right foot Status: Acute (2) Chronic anemia Status: Acute (3) Chronic congestive heart failure Status: Acute (4) Diabetes mellitus Status: Acute (5) ESRD on peritoneal dialysis Status: Acute
[2017-02-19] MEDS: Linezolid 600 mg in D5W 300 ml 600 MG/300 ML BAG IVPB SCH ×2 (12:57)
[2017-02-19] MEDS: (Lantus) Insulin Glargine, Recombinant SC SCH (21:07)
--- NOTE | 2017-02-19 21:54 | CP.PCM.PN ---
Subjective - Date & Time of Evaluation Date of Evaluation: 02/19/17 Time of Evaluation: 21:53 - Subjective Subjective: Patient is feeling better. Less pain noted. Tolerating the pain. Complaining of some abdominal discomfort, also some nausea. Patient currently receiving the peritoneal dialysis No chest pain or shortness of breath Patient was seen by cell inspector today. Currently nonweightbearing. We'll continue the physical therapy. Patient is currently awaiting for possible chcf placement. Glucose control and will follow the patient Objective - Vital Signs/Intake and Output Vital Signs (last 24 hours): Temp Pulse Resp BP Pulse Ox 98.7 F 90 20 117/74 94 L 02/19/17 21:19 02/19/17 21:19 02/19/17 21:02/19/17 21:02/19/17 15:30 - Medications Medications: Current Medications Acetaminophen (Tylenol 325mg Tab) 650 mg PO Q4 [facility] Last Admin: 02/19/17 16:25 Dose: Not Given Amlodipine Besylate (Norvasc) 10 mg PO DAILY [facility] Last Admin: 02/19/17 10:35 Dose: 10 mg Aspirin (Ecotrin) 81 mg PO DAILY [facility] Last Admin: 02/19/17 10:35 Dose: 81 mg Calcium Acetate (Phoslo) 2,668 mg PO TIDCC [facility] Last Admin: 02/19/17 17:00 Dose: Not Given Carvedilol (Coreg) 12.5 mg PO BID [facility] Last Admin: 02/19/17 19:00 Dose: 12.5 mg Clopidogrel Bisulfate (Plavix) 75 mg PO DAILY [facility] Last Admin: 02/19/17 10:35 Dose: 75 mg Collagenase (Santyl) 1 gm EXT DAILY [facility] Last Admin: 02/19/17 10:41 Dose: Not Given Diphenhydramine HCl (Benadryl) 25 mg IVP Q6 PRN PRN Reason: Itching / Pruritus Last Admin: 02/18/17 04:08 Dose: 25 mg Epoetin Alec (Procrit) 10,000 unit SC MWF [facility] Last Admin: 02/18/17 09:55 Dose: 10,000 unit Ferrous Sulfate (Feosol) 325 mg PO DAILY [facility] Last Admin: 02/19/17 10:35 Dose: 325 mg Linezolid (Zyvox 600mg/300ml D5w) 600 mg in 300 mls @ 200 mls/hr IVPB Q12H [facility] Last Admin: 02/19/17 12:57 Dose: 200 mls/hr Meropenem 500 mg/ Sodium (Chloride) 100 mls @ 100 mls/hr IVPB Q12 [facility] Insulin Glargine (Lantus) 20 unit SC HS [facility] Last Admin: 02/19/17 21:07 Dose: 20 units Insulin Human Regular (Novolin R) 0 unit SC [facility] PRN Reason: Protocol Last Admin: 02/19/17 19:39 Dose: Not Given Losartan Potassium (Cozaar) 100 mg PO DAILY@1800 [facility] Last Admin: 02/19/17 19:00 Dose: 100 mg Morphine Sulfate (Morphine) 2 mg IVP Q4 PRN PRN Reason: Pain, moderate (4-7) Last Admin: 02/19/17 21:12 Dose: 2 mg Ondansetron HCl (Zofran Inj) 4 mg IVP Q8H PRN PRN Reason: Nausea/Vomiting Rosuvastatin Calcium (Crestor) 10 mg PO HS [facility] Last Admin: 02/19/17 21:07 Dose: 10 mg - Labs Labs: 02/18/17 07:05 02/18/17 07:05 PT 11.1 SECONDS (9.7-12.2) 02/12/17 07:14 INR 1.0 02/12/17 07:14 APTT 32 SECONDS (21-34) 02/12/17 07:14
[2017-02-19 22:52] LABS: BODY FLUID TYPE PERITONEAL
[2017-02-20 00:02] LABS: BF GROSS APPEARANCE CLOUDY (CLEAR)
[2017-02-20] MEDS: Linezolid 600 mg in D5W 300 ml 600 MG/300 ML BAG IVPB SCH ×2 (01:46→12:11)
[2017-02-20 07:36] LABS: BASO % 0.2 % (0.0-2.0); EOS # 0.3 K/uL (0.0-0.7); EOS % 2.4 % (0.0-4.0); HEMATOCRIT 20.7 % (34.0-47.0); LYMPH # 1.2 K/uL (1.0-4.3); LYMPH % 9.6 % (20.0-40.0); MEAN CORPUSCULAR HEMOGLOBIN 30.5 pg (27.0-31.0); MEAN CORPUSCULAR HGB CONC 33.1 g/dL (33.0-37.0); MEAN PLATELET VOLUME 7.9 fL (7.2-11.7); MONO % 7.8 % (0.0-10.0); PLATELET COUNT 270 K/uL (130-400); RED CELL DISTRIBUTION WIDTH 16.2 % (11.5-14.5); WHITE BLOOD COUNT 12.4 K/uL (4.8-10.8)
[2017-02-20 07:50] LABS: POTASSIUM 3.7 mmol/L (3.6-5.2)
[2017-02-20 07:52] LABS: ALB/GLOB RATIO 0.8 (1.0-2.1); BILIRUBIN,TOTAL 0.3 mg/dL (0.2-1.3)
[2017-02-20] MEDS: (Novolin R) Insulin Human Regular 100 units/ml vial SC SCH ×4 (08:00→21:32)
[2017-02-20 09:10] LABS: BASOPHIL 1 % (0-2); EOSINOPHIL 1 % (0-4); NEUTROPHIL 78 % (50-75); TOTAL CELLS COUNTED 100
[2017-02-20] MEDS: EPOETIN ALFA 10,000 UNIT/ML ML SC SCH (09:49)
[2017-02-20] MEDS: Meropenem 500 MG in Sodium Chloride 0.9% 100 ML IVPB SCH ×2 (09:50→21:40)
[2017-02-20] MEDS: Collagenase 250 Units/gm Ointment(30 gm) EXT SCH (10:00)
--- NOTE | 2017-02-20 11:11 | CP.PCM.PN ---
Subjective - Date & Time of Evaluation Date of Evaluation: 02/20/17 Time of Evaluation: 11:20 - Subjective Subjective: Podiatry progress note- Dr. Ordonez: 51 yo female patient seen at bedside today 8 days s/p right foot Lisfranc amputation. Pt seen sitting upright in bed at time of visit. Denies any nausea or vomiting overnight, however does say that she does not have much of an appetite today. Complains of pain to the right foot, does say pain medication is helping. Denies f/c/sob/cp today. Says physical therapy saw her yesterday to do bed exercises. Denies any other problems today. Objective - Vital Signs/Intake and Output Vital Signs (last 24 hours): Temp Pulse Resp BP Pulse Ox 98 F 88 20 143/78 100 02/20/17 08:00 02/20/17 09:48 02/20/17 08:00 02/20/17 09:49 02/20/17 08:00 - Medications Medications: Current Medications Acetaminophen (Tylenol 325mg Tab) 650 mg PO Q4 [facility] Last Admin: 02/20/17 04:05 Dose: Not Given Amlodipine Besylate (Norvasc) 10 mg PO DAILY [facility] Last Admin: 02/20/17 09:49 Dose: 10 mg Aspirin (Ecotrin) 81 mg PO DAILY [facility] Last Admin: 02/20/17 09:49 Dose: 81 mg Calcium Acetate (Phoslo) 2,668 mg PO TIDCC [facility] Last Admin: 02/19/17 17:00 Dose: Not Given Carvedilol (Coreg) 12.5 mg PO BID [facility] Last Admin: 02/20/17 09:49 Dose: 12.5 mg Clopidogrel Bisulfate (Plavix) 75 mg PO DAILY [facility] Last Admin: 02/20/17 09:49 Dose: 75 mg Collagenase (Santyl) 1 gm EXT DAILY [facility] Last Admin: 02/19/17 10:41 Dose: Not Given Diphenhydramine HCl (Benadryl) 25 mg IVP Q6 PRN PRN Reason: Itching / Pruritus Last Admin: 02/18/17 04:08 Dose: 25 mg Epoetin Alec (Procrit) 10,000 unit SC MWF [facility] Last Admin: 02/20/17 09:49 Dose: 10,000 unit Ferrous Sulfate (Feosol) 325 mg PO DAILY [facility] Last Admin: 02/19/17 10:35 Dose: 325 mg Linezolid (Zyvox 600mg/300ml D5w) 600 mg in 300 mls @ 200 mls/hr IVPB Q12H [facility] Last Admin: 02/20/17 01:46 Dose: Not Given Meropenem 500 mg/ Sodium (Chloride) 100 mls @ 100 mls/hr IVPB Q12 [facility] Last Admin: 02/20/17 09:50 Dose: 100 mls/hr Insulin Glargine (Lantus) 20 unit SC [facility] Last Admin: 02/19/17 21:07 Dose: 20 units Insulin Human Regular (Novolin R) [address] [facility] PRN Reason: Protocol Last Admin: 02/19/17 22:00 Dose: Not Given Losartan Potassium (Cozaar) 100 mg PO DAILY@1800 [facility] Last Admin: 02/19/17 19:00 Dose: 100 mg Morphine Sulfate (Morphine) 2 mg IVP Q4 PRN PRN Reason: Pain, moderate (4-7) Last Admin: 02/20/17 04:58 Dose: 2 mg Ondansetron HCl (Zofran Inj) 4 mg IVP Q8H PRN PRN Reason: Nausea/Vomiting Rosuvastatin Calcium (Crestor) 10 mg PO [facility] Last Admin: 02/19/17 21:07 Dose: 10 mg - Labs Labs: 02/20/17 07:12 02/20/17 07:12 PT 11.1 SECONDS (9.7-12.2) 02/12/17 07:14 INR 1.0 02/12/17 07:14 APTT 32 SECONDS (21-34) 02/12/17 07:14 - Constitutional Appears: Non-toxic, No Acute Distress - Extremities Exam Additional comments: RLE exam: Dressing to right foot appears c/d/i VASC- DP pulse is palpable, PT pulse non-palpable, skin temp runs warm to warm ( from proximal to distal), CFT < 3 sec to amputation flap, no pedal edema DERM- surgical incision site appears well-coapted, slight serosanguinous drainage noted on removal of bandage, sutures are intact with no signs of over- tensioning, no dehiscence noted, no malodor, no fluctuance, no cellulitis, no purulence, distal leg temperature normal NEURO- pedal sensation is intact ORTHO- tenderness to palpation of all aspects of amputation stump - Neurological Exam Neurological Exam: Alert, Awake, Oriented x3 - Psychiatric Exam Psychiatric exam: Anxious Assessment and Plan - Assessment and Plan (Free Text) Assessment: 51 y/o female patient 8 days s/p right foot Lisfranc amputation Plan: Pt S&E at bedside Plan discussed in detail w/ attending Dr. Ordonez Chart labs and vitals reviewed: afebrile, WBC trending down 12.4 today Wound cx (02/15/17): + for S. Marcescens & VREF IV abx as per ID Reminded pt of importance with compliance of taking all medications as directed including antibiotics Blood cx: no growth Surgical site cleansed with hydrogen peroxide, saline W2D dressing applied with loose kerlix Discussed with pt importance nutrition, advised pt to ask for pain medications if she is in pain c/w strict NWB to bilateral lower extremities c/w PT: may perform upper body strengthening exercises and proximal leg exercises to prevent deconditioning Again discussed w/ pt she will need to remain NWB for serval more weeks Awaiting [place] authorization Prognosis for limb salvage is guarded Will follow closely.
--- NOTE | 2017-02-20 15:01 | CP.PCM.PN ---
Subjective - Date & Time of Evaluation Date of Evaluation: 02/20/17 Time of Evaluation: 14:58 - Subjective Subjective: has chronic pains from surgical site wounds cleaned by surgery PD going well; fluid clear BSs labile BP controlled no n, v, f, chills, diarrhea, CPS Objective - Vital Signs/Intake and Output Vital Signs (last 24 hours): Temp Pulse Resp BP Pulse Ox 98 F 88 20 143/78 100 02/20/17 08:00 02/20/17 09:48 02/20/17 08:00 02/20/17 09:49 02/20/17 08:00 - Medications Medications: Current Medications Acetaminophen (Tylenol 325mg Tab) 650 mg PO Q4 [facility] Last Admin: 02/20/17 12:00 Dose: Not Given Amlodipine Besylate (Norvasc) 10 mg PO DAILY [facility] Last Admin: 02/20/17 09:49 Dose: 10 mg Aspirin (Ecotrin) 81 mg PO DAILY [facility] Last Admin: 02/20/17 09:49 Dose: 81 mg Calcium Acetate (Phoslo) 2,668 mg PO TIDCC [facility] Last Admin: 02/20/17 13:35 Dose: 2,668 mg Carvedilol (Coreg) 12.5 mg PO BID [facility] Last Admin: 02/20/17 09:49 Dose: 12.5 mg Clopidogrel Bisulfate (Plavix) 75 mg PO DAILY [facility] Last Admin: 02/20/17 09:49 Dose: 75 mg Collagenase (Santyl) 1 gm EXT DAILY [facility] Last Admin: 02/20/17 10:00 Dose: Not Given Diphenhydramine HCl (Benadryl) 25 mg IVP Q6 PRN PRN Reason: Itching / Pruritus Last Admin: 02/18/17 04:08 Dose: 25 mg Epoetin Alec (Procrit) 10,000 unit SC MWF [facility] Last Admin: 02/20/17 09:49 Dose: 10,000 unit Ferrous Sulfate (Feosol) 325 mg PO DAILY [facility] Last Admin: 02/20/17 10:00 Dose: Not Given Linezolid (Zyvox 600mg/300ml D5w) 600 mg in 300 mls @ 200 mls/hr IVPB Q12H [facility] Last Admin: 02/20/17 12:11 Dose: 200 mls/hr Meropenem 500 mg/ Sodium (Chloride) 100 mls @ 100 mls/hr IVPB Q12 [facility] Last Admin: 02/20/17 09:50 Dose: 100 mls/hr Insulin Glargine (Lantus) 20 unit SC [facility] Last Admin: 02/19/17 21:07 Dose: 20 units Insulin Human Regular (Novolin R) 0 unit SC [facility] PRN Reason: Protocol Last Admin: 02/20/17 11:30 Dose: Not Given Losartan Potassium (Cozaar) 100 mg PO DAILY@1800 [facility] Last Admin: 02/19/17 19:00 Dose: 100 mg Morphine Sulfate (Morphine) 2 mg IVP Q4 PRN PRN Reason: Pain, moderate (4-7) Last Admin: 02/20/17 13:38 Dose: 2 mg Ondansetron HCl (Zofran Inj) 4 mg IVP Q8H PRN PRN Reason: Nausea/Vomiting Rosuvastatin Calcium (Crestor) 10 mg PO [facility] Last Admin: 02/19/17 21:07 Dose: 10 mg - Labs Labs: 02/20/17 07:12 02/20/17 07:12 PT 11.1 SECONDS (9.7-12.2) 02/12/17 07:14 INR 1.0 02/12/17 07:14 APTT 32 SECONDS (21-34) 02/12/17 07:14 - Constitutional Appears: No Acute Distress, Chronically Ill - Head Exam Head Exam: ATRAUMATIC, NORMAL INSPECTION - Eye Exam Eye Exam: EOMI, Normal appearance - Neck Exam Neck Exam: Normal Inspection. absent: Tenderness - Respiratory Exam Respiratory Exam: Clear to Ausculation Bilateral, NORMAL BREATHING PATTERN - Cardiovascular Exam Cardiovascular Exam: REGULAR RHYTHM, +S1 - GI/Abdominal Exam GI & Abdominal Exam: Soft. absent: Tenderness - Extremities Exam Extremities Exam: Tenderness. absent: Pedal Edema - Neurological Exam Neurological Exam: Alert, CN II-XII Intact - Skin Skin Exam: Dry, Warm Assessment and Plan (1) Type 1 diabetes mellitus with diabetic nephropathy Status: Acute (2) Gangrene of right foot Status: Acute (3) End stage renal disease Status: Acute - Assessment and Plan (Free Text) Plan: same PD IV ABs for wound infections monitor chronic severe anemia wound care as per surgery
[2017-02-20] MEDS: (Lantus) Insulin Glargine, Recombinant SC SCH (21:39)
[2017-02-20] MEDS: DiphenhydrAMINE 50 mg/ml Inj IVP PRN (23:04)
[2017-02-21] MEDS: Linezolid 600 mg in D5W 300 ml 600 MG/300 ML BAG IVPB SCH ×2 (00:46→12:33)
--- NOTE | 2017-02-21 09:31 | CP.PCM.PN ---
Subjective - Date & Time of Evaluation Date of Evaluation: 02/21/17 Time of Evaluation: 09:30 - Subjective Subjective: seen and examined ongoing pd, clear fluid no labs today c/o poor appetite, rt leg pain Objective - Vital Signs/Intake and Output Vital Signs (last 24 hours): Temp Pulse Resp BP Pulse Ox 98.2 F 88 20 142/71 95 02/21/17 08:05 02/21/17 08:05 02/21/17 08:05 02/21/17 08:05 02/21/17 08:05 - Medications Medications: Current Medications Acetaminophen (Tylenol 325mg Tab) 650 mg PO Q4 [facility] Last Admin: 02/21/17 04:00 Dose: Not Given Amlodipine Besylate (Norvasc) 10 mg PO DAILY [facility] Last Admin: 02/20/17 09:49 Dose: 10 mg Aspirin (Ecotrin) 81 mg PO DAILY [facility] Last Admin: 02/20/17 09:49 Dose: 81 mg Calcium Acetate (Phoslo) 2,668 mg PO TIDCC [facility] Last Admin: 02/20/17 17:51 Dose: 2,668 mg Carvedilol (Coreg) 12.5 mg PO BID [facility] Last Admin: 02/20/17 17:51 Dose: 12.5 mg Clopidogrel Bisulfate (Plavix) 75 mg PO DAILY [facility] Last Admin: 02/20/17 09:49 Dose: 75 mg Collagenase (Santyl) 1 gm EXT DAILY [facility] Last Admin: 02/20/17 10:00 Dose: Not Given Diphenhydramine HCl (Benadryl) 25 mg IVP Q6 PRN PRN Reason: Itching / Pruritus Last Admin: 02/20/17 23:04 Dose: 25 mg Epoetin Alec (Procrit) 10,000 unit SC MWF [facility] Last Admin: 02/20/17 09:49 Dose: 10,000 unit Ferrous Sulfate (Feosol) 325 mg PO DAILY [facility] Last Admin: 02/20/17 10:00 Dose: Not Given Linezolid (Zyvox 600mg/300ml D5w) 600 mg in 300 mls @ 200 mls/hr IVPB Q12H [facility] Last Admin: 02/21/17 00:46 Dose: 200 mls/hr Meropenem 500 mg/ Sodium (Chloride) 100 mls @ 100 mls/hr IVPB Q12 [facility] Last Admin: 02/20/17 21:40 Dose: 100 mls/hr Insulin Glargine (Lantus) 20 unit SC [facility] Last Admin: 02/20/17 21:39 Dose: 20 units Insulin Human Regular (Novolin R) 0 unit SC [facility] PRN Reason: Protocol Last Admin: 02/20/17 21:32 Dose: Not Given Losartan Potassium (Cozaar) 100 mg PO DAILY@1800 [facility] Last Admin: 02/20/17 17:50 Dose: 100 mg Morphine Sulfate (Morphine) 2 mg IVP Q4 PRN PRN Reason: Pain, moderate (4-7) Last Admin: 02/20/17 21:40 Dose: 2 mg Ondansetron HCl (Zofran Inj) 4 mg IVP Q8H PRN PRN Reason: Nausea/Vomiting Rosuvastatin Calcium (Crestor) 10 mg PO [facility] Last Admin: 02/20/17 21:39 Dose: 10 mg - Labs Labs: 02/20/17 07:12 02/20/17 07:12 PT 11.1 SECONDS (9.7-12.2) 02/12/17 07:14 INR 1.0 02/12/17 07:14 APTT 32 SECONDS (21-34) 02/12/17 07:14 - Constitutional Appears: Non-toxic, No Acute Distress, Chronically Ill - Head Exam Head Exam: NORMAL INSPECTION - Eye Exam Eye Exam: Normal appearance - ENT Exam ENT Exam: Mucous Membranes Moist, Normal Exam - Neck Exam Neck Exam: Normal Inspection - Respiratory Exam Respiratory Exam: Decreased Breath Sounds, NORMAL BREATHING PATTERN - Cardiovascular Exam Cardiovascular Exam: REGULAR RHYTHM, RRR - GI/Abdominal Exam GI & Abdominal Exam: Distended, Soft Additional comments: pd catheter - Extremities Exam Additional comments: rt leg w/ chronic stasis changes, in dressing left bka Assessment and Plan (1) Gangrene of right foot Status: Acute (2) Anemia Status: Acute (3) Diabetes mellitus Status: Acute (4) ESRD on peritoneal dialysis Status: Acute (5) Hyperkalemia Status: Acute (6) Hypertension Status: Acute - Assessment and Plan (Free Text) Assessment: maintain pd recommend blood transfusion antibiotics wound care and pain control blood sugar control rehab placement
[2017-02-21] MEDS: Meropenem 500 MG in Sodium Chloride 0.9% 100 ML IVPB SCH ×2 (10:15→22:03)
[2017-02-21] MEDS: (Novolin R) Insulin Human Regular 100 units/ml vial SC SCH ×4 (10:18→21:13)
[2017-02-21] MEDS: Collagenase 250 Units/gm Ointment(30 gm) EXT SCH (10:19)
[2017-02-21 15:34] LABS: POTASSIUM 3.7 mmol/L (3.6-5.2)
[2017-02-21 15:35] LABS: HEMATOCRIT 20.9 % (34.0-47.0); MEAN CELL VOLUME 91.3 fL (81.0-99.0); MEAN CORPUSCULAR HEMOGLOBIN 28.9 pg (27.0-31.0); MEAN CORPUSCULAR HGB CONC 31.7 g/dL (33.0-37.0); MEAN PLATELET VOLUME 7.4 fL (7.2-11.7); RED CELL DISTRIBUTION WIDTH 15.9 % (11.5-14.5); WHITE BLOOD COUNT 12.4 K/uL (4.8-10.8)
[2017-02-21 15:36] LABS: ALB/GLOB RATIO 0.8 (1.0-2.1); BILIRUBIN,TOTAL 0.2 mg/dL (0.2-1.3); TOTAL PROTEIN 5.7 g/dL (6.3-8.3)
[2017-02-21 15:37] LABS: CALCIUM 8.4 mg/dl (8.6-10.4)
[2017-02-21] MEDS: (Lantus) Insulin Glargine, Recombinant SC SCH (22:03)
[2017-02-22] MEDS: Linezolid 600 mg in D5W 300 ml 600 MG/300 ML BAG IVPB SCH ×2 (00:52→13:31)
[2017-02-22] MEDS: (Novolin R) Insulin Human Regular 100 units/ml vial SC SCH ×4 (08:48→22:00)
[2017-02-22] MEDS: EPOETIN ALFA 10,000 UNIT/ML ML SC SCH (10:18)
[2017-02-22] MEDS: Meropenem 500 MG in Sodium Chloride 0.9% 100 ML IVPB SCH ×2 (10:33→22:04)
[2017-02-22] MEDS: Collagenase 250 Units/gm Ointment(30 gm) EXT SCH (10:46)
--- NOTE | 2017-02-22 11:27 | CP.PCM.PN ---
Subjective - Date & Time of Evaluation Date of Evaluation: 02/22/17 Time of Evaluation: 11:26 - Subjective Subjective: seen and examined no events ongoing pd, clear fluid no labs today c/o pain in rt leg Objective - Vital Signs/Intake and Output Vital Signs (last 24 hours): Temp Pulse Resp BP Pulse Ox 97.9 F 79 20 117/80 94 L 02/22/17 07:11 02/22/17 07:11 02/22/17 07:11 02/22/17 10:17 02/22/17 07:11 Intake and Output: 02/22/17 02/22/17 06:59 18:59 Intake Total 440 Balance 440 - Medications Medications: Current Medications Acetaminophen (Tylenol 325mg Tab) 650 mg PO Q4 [facility] Last Admin: 02/22/17 10:16 Dose: Not Given Amlodipine Besylate (Norvasc) 10 mg PO DAILY [facility] Last Admin: 02/22/17 10:17 Dose: 10 mg Aspirin (Ecotrin) 81 mg PO DAILY [facility] Last Admin: 02/22/17 10:17 Dose: 81 mg Calcium Acetate (Phoslo) 2,668 mg PO TIDCC [facility] Last Admin: 02/22/17 08:47 Dose: 1,334 mg Carvedilol (Coreg) 12.5 mg PO BID [facility] Last Admin: 02/22/17 10:17 Dose: 12.5 mg Clopidogrel Bisulfate (Plavix) 75 mg PO DAILY [facility] Last Admin: 02/22/17 10:17 Dose: 75 mg Collagenase (Santyl) 1 gm EXT DAILY [facility] Last Admin: 02/22/17 10:46 Dose: Not Given Diphenhydramine HCl (Benadryl) 25 mg IVP Q6 PRN PRN Reason: Itching / Pruritus Last Admin: 02/20/17 23:04 Dose: 25 mg Epoetin Alec (Procrit) 10,000 unit SC MWF [facility] Last Admin: 02/22/17 10:18 Dose: 10,000 unit Ferrous Sulfate (Feosol) 325 mg PO DAILY [facility] Last Admin: 02/22/17 10:18 Dose: 325 mg Linezolid (Zyvox 600mg/300ml D5w) 600 mg in 300 mls @ 200 mls/hr IVPB Q12H [facility] Last Admin: 02/22/17 00:52 Dose: 200 mls/hr Meropenem 500 mg/ Sodium (Chloride) 100 mls @ 100 mls/hr IVPB Q12 [facility] Last Admin: 02/22/17 10:33 Dose: 100 mls/hr Insulin Glargine (Lantus) 20 unit SC [facility] Last Admin: 02/21/17 22:03 Dose: 20 units Insulin Human Regular (Novolin R) 0 unit SC ACHS [facility] PRN Reason: Protocol Last Admin: 02/22/17 08:48 Dose: 3 unit Losartan Potassium (Cozaar) 100 mg PO DAILY@1800 [facility] Last Admin: 02/21/17 18:47 Dose: 100 mg Morphine Sulfate (Morphine) 2 mg IVP Q4 PRN PRN Reason: Pain, moderate (4-7) Last Admin: 02/22/17 08:22 Dose: 2 mg Ondansetron HCl (Zofran Inj) 4 mg IVP Q8H PRN PRN Reason: Nausea/Vomiting Rosuvastatin Calcium (Crestor) 10 mg PO [facility] Last Admin: 02/21/17 21:16 Dose: Not Given - Labs Labs: 02/21/17 15:23 02/21/17 15:23 PT 11.1 SECONDS (9.7-12.2) 02/12/17 07:14 INR 1.0 02/12/17 07:14 APTT 32 SECONDS (21-34) 02/12/17 07:14 - Constitutional Appears: Non-toxic, No Acute Distress, Chronically Ill - Head Exam Head Exam: NORMAL INSPECTION - Eye Exam Eye Exam: Normal appearance - ENT Exam ENT Exam: Mucous Membranes Moist, Normal Exam - Neck Exam Neck Exam: Normal Inspection - Respiratory Exam Respiratory Exam: Decreased Breath Sounds, Clear to Ausculation Bilateral - Cardiovascular Exam Cardiovascular Exam: REGULAR RHYTHM, RRR - GI/Abdominal Exam GI & Abdominal Exam: Distended, Soft, Hypoactive Bowel Sounds (pd catheter) - Extremities Exam Extremities Exam: Pedal Edema Additional comments: rt foot in dressing, chronic skin changes Assessment and Plan (1) Gangrene of right foot Status: Acute (2) Anemia Status: Acute (3) Diabetes mellitus Status: Acute (4) ESRD on peritoneal dialysis Status: Acute (5) Hyperkalemia Status: Acute (6) Hypertension Status: Acute - Assessment and Plan (Free Text) Assessment: maintain pd recommend blood transfusion antibiotics wound care and pain control blood sugar control rehab placement labs ordered for tomorrow
--- NOTE | 2017-02-22 13:32 | CP.PCM.PN ---
Subjective - Date & Time of Evaluation Date of Evaluation: 02/22/17 Time of Evaluation: 11:30 - Subjective Subjective: Podiatry progress note- Dr. Ordonez: 51 yo female patient seen at bedside today 10 days s/p right foot Lisfranc amputation. Pt seen resting in bed at time of visit, with right lower extremity rested on pillow. Trapeze seen applied to bed today. Pt denies any issues overnight, does complain of pain to the foot but does say morphine is helping. Again today says she does not have much of an appetite, but denies nausea or vomiting. Denies f/n/v/c/sob/cp at this time. Objective - Vital Signs/Intake and Output Vital Signs (last 24 hours): Temp Pulse Resp BP Pulse Ox 97.9 F 79 20 117/80 94 L 02/22/17 07:11 02/22/17 07:11 02/22/17 07:11 02/22/17 10:17 02/22/17 07:11 Intake and Output: 02/22/17 02/22/17 06:59 18:59 Intake Total 440 Balance 440 - Medications Medications: Current Medications Acetaminophen (Tylenol 325mg Tab) 650 mg PO Q4 [facility] Last Admin: 02/22/17 12:36 Dose: Not Given Amlodipine Besylate (Norvasc) 10 mg PO DAILY [facility] Last Admin: 02/22/17 10:17 Dose: 10 mg Aspirin (Ecotrin) 81 mg PO DAILY [facility] Last Admin: 02/22/17 10:17 Dose: 81 mg Calcium Acetate (Phoslo) 2,668 mg PO TIDCC [facility] Last Admin: 02/22/17 08:47 Dose: 1,334 mg Carvedilol (Coreg) 12.5 mg PO BID [facility] Last Admin: 02/22/17 10:17 Dose: 12.5 mg Clopidogrel Bisulfate (Plavix) 75 mg PO DAILY [facility] Last Admin: 02/22/17 10:17 Dose: 75 mg Collagenase (Santyl) 1 gm EXT DAILY [facility] Last Admin: 02/22/17 10:46 Dose: Not Given Diphenhydramine HCl (Benadryl) 25 mg IVP Q6 PRN PRN Reason: Itching / Pruritus Last Admin: 02/20/17 23:04 Dose: 25 mg Epoetin Alec (Procrit) 10,000 unit SC MWF [facility] Last Admin: 02/22/17 10:18 Dose: 10,000 unit Ferrous Sulfate (Feosol) 325 mg PO DAILY [facility] Last Admin: 02/22/17 10:18 Dose: 325 mg Linezolid (Zyvox 600mg/300ml D5w) 600 mg in 300 mls @ 200 mls/hr IVPB Q12H [facility] Last Admin: 02/22/17 00:52 Dose: 200 mls/hr Meropenem 500 mg/ Sodium (Chloride) 100 mls @ 100 mls/hr IVPB Q12 [facility] Last Admin: 02/22/17 10:33 Dose: 100 mls/hr Insulin Glargine (Lantus) [address] [facility] Last Admin: 02/21/17 22:03 Dose: 20 units Insulin Human Regular (Novolin R) 0 unit SC ACHS [facility] PRN Reason: Protocol Last Admin: 02/22/17 12:35 Dose: Not Given Losartan Potassium (Cozaar) 100 mg PO DAILY@1800 [facility] Last Admin: 02/21/17 18:47 Dose: 100 mg Morphine Sulfate (Morphine) 2 mg IVP Q4 PRN PRN Reason: Pain, moderate (4-7) Last Admin: 02/22/17 12:20 Dose: 2 mg Ondansetron HCl (Zofran Inj) 4 mg IVP Q8H PRN PRN Reason: Nausea/Vomiting Rosuvastatin Calcium (Crestor) [address] [facility] Last Admin: 02/21/17 21:16 Dose: Not Given - Labs Labs: 02/21/17 15:23 02/21/17 15:23 PT 11.1 SECONDS (9.7-12.2) 02/12/17 07:14 INR 1.0 02/12/17 07:14 APTT 32 SECONDS (21-34) 02/12/17 07:14 - Constitutional Appears: Non-toxic, No Acute Distress - Extremities Exam Extremities Exam: absent: Calf Tenderness Additional comments: RLE exam: Dressing to right foot appears c/d/i VASC- DP pulse is palpable, PT pulse non-palpable, skin temp runs warm to warm ( from proximal to distal), CFT < 3 sec to amputation flap, no pedal edema DERM- surgical incision site appears well-coapted, slight serosanguinous drainage noted on removal of bandage, sutures are intact with no signs of over- tensioning, no dehiscence noted, no malodor, no fluctuance, no cellulitis, no purulence, no evidence of necrosis, distal leg temperature normal NEURO- pedal sensation is intact ORTHO- tenderness to palpation of all aspects of amputation stump - Neurological Exam Neurological Exam: Alert, Awake, Oriented x3 - Psychiatric Exam Psychiatric exam: Normal Affect, Normal Mood Assessment and Plan - Assessment and Plan (Free Text) Assessment: 51 y/o female patient 10 days s/p right foot Lisfranc amputation Plan: Pt S&E at bedside Plan discussed in detail w/ attending Dr. Ordonez Chart labs and vitals reviewed: afebrile, anemic (H/H 6.6/20.9) ESR ordered Pt refused blood transfusion yesterday Wound cx (02/15/17): + for S. Marcescens & VREF c/w IV abx as per ID Surgical site cleansed with hydrogen peroxide, saline W2D dressing applied with loose kerlix Discussed with pt importance nutrition, advised pt to ask for pain medications if she is in pain c/w strict NWB to bilateral lower extremities c/w PT: may perform upper body strengthening exercises and proximal leg exercises to prevent deconditioning Awaiting [place] authorization Prognosis for limb salvage is guarded but stable Will follow closely.
--- NOTE | 2017-02-22 18:25 | CP.PCM.PN ---
Subjective - Date & Time of Evaluation Date of Evaluation: 02/22/17 Time of Evaluation: 09:00 - Subjective Subjective: wound healing no dehiscence no fever Objective - Vital Signs/Intake and Output Vital Signs (last 24 hours): Temp Pulse Resp BP Pulse Ox 98.5 F 84 20 116/69 95 02/22/17 15:00 02/22/17 15:00 02/22/17 15:00 02/22/17 17:20 02/22/17 15:00 Intake and Output: 02/22/17 02/22/17 06:59 18:59 Intake Total 440 400 Balance 440 400 - Medications Medications: Current Medications Acetaminophen (Tylenol 325mg Tab) 650 mg PO Q4 [facility] Last Admin: 02/22/17 12:36 Dose: Not Given Amlodipine Besylate (Norvasc) 10 mg PO DAILY [facility] Last Admin: 02/22/17 10:17 Dose: 10 mg Aspirin (Ecotrin) 81 mg PO DAILY [facility] Last Admin: 02/22/17 10:17 Dose: 81 mg Calcium Acetate (Phoslo) 2,668 mg PO TIDCC [facility] Last Admin: 02/22/17 17:19 Dose: 2,668 mg Carvedilol (Coreg) 12.5 mg PO BID [facility] Last Admin: 02/22/17 17:20 Dose: 12.5 mg Clopidogrel Bisulfate (Plavix) 75 mg PO DAILY [facility] Last Admin: 02/22/17 10:17 Dose: 75 mg Collagenase (Santyl) 1 gm EXT DAILY [facility] Last Admin: 02/22/17 10:46 Dose: Not Given Diphenhydramine HCl (Benadryl) 25 mg IVP Q6 PRN PRN Reason: Itching / Pruritus Last Admin: 02/20/17 23:04 Dose: 25 mg Epoetin Alec (Procrit) 10,000 unit SC MWF [facility] Last Admin: 02/22/17 10:18 Dose: 10,000 unit Ferrous Sulfate (Feosol) 325 mg PO DAILY [facility] Last Admin: 02/22/17 10:18 Dose: 325 mg Linezolid (Zyvox 600mg/300ml D5w) 600 mg in 300 mls @ 200 mls/hr IVPB Q12H [facility] Last Admin: 02/22/17 13:31 Dose: 200 mls/hr Meropenem 500 mg/ Sodium (Chloride) 100 mls @ 100 mls/hr IVPB Q12 [facility] Last Admin: 02/22/17 10:33 Dose: 100 mls/hr Insulin Glargine (Lantus) 20 unit SC [facility] Last Admin: 02/21/17 22:03 Dose: 20 units Insulin Human Regular (Novolin R) 0 unit SC ACHS [facility] PRN Reason: Protocol Last Admin: 02/22/17 17:15 Dose: Not Given Losartan Potassium (Cozaar) 100 mg PO DAILY@1800 [facility] Last Admin: 02/22/17 17:19 Dose: 100 mg Morphine Sulfate (Morphine) 2 mg IVP Q4 PRN PRN Reason: Pain, moderate (4-7) Last Admin: 02/22/17 17:20 Dose: 2 mg Ondansetron HCl (Zofran Inj) 4 mg IVP Q8H PRN PRN Reason: Nausea/Vomiting Rosuvastatin Calcium (Crestor) 10 mg PO [facility] Last Admin: 02/21/17 21:16 Dose: Not Given - Labs Labs: 02/21/17 15:23 02/21/17 15:23 PT 11.1 SECONDS (9.7-12.2) 02/12/17 07:14 INR 1.0 02/12/17 07:14 APTT 32 SECONDS (21-34) 02/12/17 07:14 - Constitutional Appears: Non-toxic, Chronically Ill - Head Exam Head Exam: NORMOCEPHALIC - Eye Exam Eye Exam: PERRL - ENT Exam ENT Exam: Mucous Membranes Dry - Neck Exam Neck Exam: absent: Lymphadenopathy - Respiratory Exam Respiratory Exam: Decreased Breath Sounds - Cardiovascular Exam Cardiovascular Exam: REGULAR RHYTHM - GI/Abdominal Exam GI & Abdominal Exam: Distended, Soft Assessment and Plan (1) Gangrene of right foot Status: Acute (2) Chronic anemia Status: Acute (3) Chronic congestive heart failure Status: Acute (4) Diabetes mellitus Status: Acute (5) ESRD on peritoneal dialysis Status: Acute
[2017-02-22] MEDS: DiphenhydrAMINE 50 mg/ml Inj IVP PRN (19:35)
[2017-02-22] MEDS: (Lantus) Insulin Glargine, Recombinant SC SCH (22:05)
[2017-02-23] MEDS: Linezolid 600 mg in D5W 300 ml 600 MG/300 ML BAG IVPB SCH (00:17)
[2017-02-23 07:37] LABS: BASO % 0.4 % (0.0-2.0); EOS # 0.2 K/uL (0.0-0.7); EOS % 1.9 % (0.0-4.0); HEMATOCRIT 22.5 % (34.0-47.0); LYMPH # 1.6 K/uL (1.0-4.3); LYMPH % 13.1 % (20.0-40.0); MEAN CORPUSCULAR HEMOGLOBIN 29.6 pg (27.0-31.0); MEAN CORPUSCULAR HGB CONC 32.1 g/dL (33.0-37.0); MEAN PLATELET VOLUME 7.5 fL (7.2-11.7); MONO # 0.8 K/uL (0.0-0.8); MONO % 6.7 % (0.0-10.0); NRBC % 0.2 % (0.0-2.0); PLATELET COUNT 374 K/uL (130-400); WHITE BLOOD COUNT 12.2 K/uL (4.8-10.8)
[2017-02-23 07:38] LABS: ALB/GLOB RATIO 0.8 (1.0-2.1); BILIRUBIN,TOTAL 0.2 mg/dL (0.2-1.3); CALCIUM 9.2 mg/dl (8.6-10.4); POTASSIUM 3.3 mmol/L (3.6-5.2); TOTAL PROTEIN 5.9 g/dL (6.3-8.3)
[2017-02-23] MEDS: (Novolin R) Insulin Human Regular 100 units/ml vial SC SCH ×4 (08:10→22:13)
--- NOTE | 2017-02-23 09:37 | CP.PCM.PN ---
Subjective - Date & Time of Evaluation Date of Evaluation: 02/23/17 Time of Evaluation: 09:30 - Subjective Subjective: hb7.2 afebrile bp stable today k 3.3 pain rt foot since hit it last PM PD in progress ROS no chills fever no chest pain sob cough No abdomenal pain nausea vomiting diarrhea anuric rt foot pain Objective - Vital Signs/Intake and Output Vital Signs (last 24 hours): Temp Pulse Resp BP Pulse Ox 97.4 F L 94 H 20 135/64 94 L 02/23/17 07:42 02/23/17 07:42 02/23/17 07:42 02/23/17 07:42 02/23/17 07:42 Intake and Output: 02/23/17 02/23/17 06:59 18:59 Intake Total 450 Balance 450 - Medications Medications: Current Medications Acetaminophen (Tylenol 325mg Tab) 650 mg PO Q4 [facility] Last Admin: 02/23/17 08:08 Dose: 650 mg Amlodipine Besylate (Norvasc) 10 mg PO DAILY [facility] Last Admin: 02/22/17 10:17 Dose: 10 mg Aspirin (Ecotrin) 81 mg PO DAILY [facility] Last Admin: 02/22/17 10:17 Dose: 81 mg Calcium Acetate (Phoslo) 2,668 mg PO TIDCC [facility] Last Admin: 02/23/17 08:00 Dose: 2,668 mg Carvedilol (Coreg) 12.5 mg PO BID [facility] Last Admin: 02/22/17 17:20 Dose: 12.5 mg Clopidogrel Bisulfate (Plavix) 75 mg PO DAILY [facility] Last Admin: 02/22/17 10:17 Dose: 75 mg Collagenase (Santyl) 1 gm EXT DAILY [facility] Last Admin: 02/22/17 10:46 Dose: Not Given Diphenhydramine HCl (Benadryl) 25 mg IVP Q6 PRN PRN Reason: Itching / Pruritus Last Admin: 02/22/17 19:35 Dose: 25 mg Epoetin Alec (Procrit) 10,000 unit SC MWF [facility] Last Admin: 02/22/17 10:18 Dose: 10,000 unit Ferrous Sulfate (Feosol) 325 mg PO DAILY [facility] Last Admin: 02/22/17 10:18 Dose: 325 mg Meropenem 500 mg/ Sodium (Chloride) 100 mls @ 100 mls/hr IVPB Q12 [facility] Last Admin: 02/22/17 22:04 Dose: 100 mls/hr Insulin Glargine (Lantus) 20 unit SC [facility] Last Admin: 02/22/17 22:05 Dose: 20 units Insulin Human Regular (Novolin R) 0 unit SC ACHS [facility] PRN Reason: Protocol Last Admin: 02/23/17 08:10 Dose: Not Given Linezolid (Zyvox) 600 mg PO Q12 [facility] Losartan Potassium (Cozaar) 100 mg PO DAILY@1800 [facility] Last Admin: 02/22/17 17:19 Dose: 100 mg Morphine Sulfate (Morphine) 2 mg IVP Q4 PRN PRN Reason: Pain, moderate (4-7) Last Admin: 02/23/17 06:07 Dose: 2 mg Ondansetron HCl (Zofran Inj) 4 mg IVP Q8H PRN PRN Reason: Nausea/Vomiting Rosuvastatin Calcium (Crestor) 10 mg PO [facility] Last Admin: 02/22/17 22:04 Dose: 10 mg - Labs Labs: 02/23/17 07:10 02/23/17 07:10 PT 11.1 SECONDS (9.7-12.2) 02/12/17 07:14 INR 1.0 02/12/17 07:14 APTT 32 SECONDS (21-34) 02/12/17 07:14 - Head Exam Additional comments: comfortable and quiet on entering room then started to cry complaining of pain rt foot - Eye Exam Eye Exam: Normal appearance - ENT Exam ENT Exam: Mucous Membranes Moist - Respiratory Exam Respiratory Exam: Clear to Ausculation Bilateral, NORMAL BREATHING PATTERN - Cardiovascular Exam Cardiovascular Exam: REGULAR RHYTHM - GI/Abdominal Exam GI & Abdominal Exam: Soft. absent: Distended, Tenderness - Extremities Exam Additional comments: rt foot banaged - Back Exam Back Exam: absent: CVA tenderness (L), CVA tenderness (R) - Psychiatric Exam Psychiatric exam: Anxious - Skin Skin Exam: Dry Assessment and Plan (1) Gangrene of right foot Status: Acute (2) Type 1 diabetes mellitus with diabetic nephropathy Status: Acute (3) Bacteremia due to coagulase-negative Staphylococcus Status: Acute (4) Diabetes mellitus Status: Acute (5) ESRD on peritoneal dialysis Assessment & Plan: maintain present pd rx supplement k notify attending re pain Status: Acute
[2017-02-23] MEDS ORDERED: Potassium Chloride 20 mEq ER Tab PO SCH (10:00)
[2017-02-23] MEDS: Collagenase 250 Units/gm Ointment(30 gm) EXT SCH (11:09)
[2017-02-23] MEDS: Potassium Chloride 20 mEq ER Tab PO SCH ×2 (11:15→14:01)
[2017-02-23] MEDS: Meropenem 500 MG in Sodium Chloride 0.9% 100 ML IVPB SCH ×2 (11:22→22:09)
[2017-02-23 11:41] LABS: ERYTHROCYTE SEDIMENTATION RATE > 140 mm/hr (0-20)
--- NOTE | 2017-02-23 20:46 | CP.PCM.PN ---
Subjective - Date & Time of Evaluation Date of Evaluation: 02/23/17 Time of Evaluation: 20:43 - Subjective Subjective: Podiatry progress note- Dr. Ordonez: 51 yo female patient seen at bedside today 11 days s/p right foot Lisfranc amputation. Pt seen resting in bed at time of visit, with right lower extremity rested on pillow. Pt is AOOx3. Alicia seen applied to bed today. Pt states that last night she hit her foot on the side of the bed which woke her up screaming. The foot is causing her a lot of pain today. Pain medication is note helping today since she hit her foot. Denies f/n/v/c/sob/cp at this time. Objective - Vital Signs/Intake and Output Vital Signs (last 24 hours): Temp Pulse Resp BP Pulse Ox 97.6 F 80 20 120/69 94 L 02/23/17 17:42 02/23/17 17:42 02/23/17 17:42 02/23/17 18:04 02/23/17 07:42 Intake and Output: 02/23/17 02/24/17 18:59 06:59 Intake Total 850 Balance 850 - Medications Medications: Current Medications Acetaminophen (Tylenol 325mg Tab) 650 mg PO Q4 [facility] Last Admin: 02/23/17 16:30 Dose: Not Given Amlodipine Besylate (Norvasc) 10 mg PO DAILY [facility] Last Admin: 02/23/17 11:18 Dose: 10 mg Aspirin (Ecotrin) 81 mg PO DAILY [facility] Last Admin: 02/23/17 11:15 Dose: 81 mg Calcium Acetate (Phoslo) 2,668 mg PO TIDCC [facility] Last Admin: 02/23/17 18:04 Dose: 2,668 mg Carvedilol (Coreg) 12.5 mg PO BID [facility] Last Admin: 02/23/17 18:04 Dose: 12.5 mg Clopidogrel Bisulfate (Plavix) 75 mg PO DAILY [facility] Last Admin: 02/23/17 11:09 Dose: 75 mg Collagenase (Santyl) 1 gm EXT DAILY [facility] Last Admin: 02/23/17 11:09 Dose: 1 applic Diphenhydramine HCl (Benadryl) 25 mg IVP Q6 PRN PRN Reason: Itching / Pruritus Last Admin: 02/22/17 19:35 Dose: 25 mg Epoetin Alec (Procrit) 10,000 unit SC MWF [facility] Last Admin: 02/22/17 10:18 Dose: 10,000 unit Ferrous Sulfate (Feosol) 325 mg PO DAILY [facility] Last Admin: 02/23/17 11:21 Dose: 325 mg Meropenem 500 mg/ Sodium (Chloride) 100 mls @ 100 mls/hr IVPB Q12 [facility] Last Admin: 02/23/17 11:22 Dose: 100 mls/hr Insulin Glargine (Lantus) [address] [facility] Last Admin: 02/22/17 22:05 Dose: 20 units Insulin Human Regular (Novolin R) 0 unit SC ACHS [facility] PRN Reason: Protocol Last Admin: 02/23/17 18:05 Dose: Not Given Linezolid (Zyvox) 600 mg PO Q12 [facility] Last Admin: 02/23/17 11:08 Dose: 600 mg Losartan Potassium (Cozaar) 100 mg PO DAILY@1800 [facility] Last Admin: 02/23/17 18:04 Dose: 100 mg Morphine Sulfate (Morphine) 2 mg IVP Q4 PRN PRN Reason: Pain, moderate (4-7) Last Admin: 02/23/17 17:55 Dose: 2 mg Ondansetron HCl (Zofran Inj) 4 mg IVP Q8H PRN PRN Reason: Nausea/Vomiting Rosuvastatin Calcium (Crestor) [address] [facility] Last Admin: 02/22/17 22:04 Dose: 10 mg - Labs Labs: 02/23/17 07:10 02/23/17 07:10 PT 11.1 SECONDS (9.7-12.2) 02/12/17 07:14 INR 1.0 02/12/17 07:14 APTT 32 SECONDS (21-34) 02/12/17 07:14 - Constitutional Appears: Non-toxic, No Acute Distress - Extremities Exam Additional comments: RLE exam: Dressing to right foot appears c/d/i VASC- DP pulse is palpable, PT pulse non-palpable, skin temp runs warm to warm ( from proximal to distal), CFT < 3 sec to amputation flap, no pedal edema DERM- surgical incision site appears well-coapted, slight serosanguinous drainage noted on removal of bandage, sutures are intact with no signs of over- tensioning, no dehiscence noted, no malodor, no fluctuance, no cellulitis, no purulence, no evidence of necrosis, distal leg temperature normal NEURO- pedal sensation is intact ORTHO- tenderness to palpation of all aspects of amputation stump - Neurological Exam Neurological Exam: Alert, Awake, Oriented x3 - Psychiatric Exam Psychiatric exam: Normal Affect, Normal Mood Assessment and Plan - Assessment and Plan (Free Text) Assessment: 51 y/o female patient 11 days s/p right foot Lisfranc amputation Plan: Pt S&E at bedside Plan discussed in detail w/ attending Dr. Ordonez Chart labs and vitals reviewed: afebrile, WBC=12.2 ESR ordered- pending Wound cx (02/15/17): + for S. Marcescens & VREF c/w IV abx as per ID Surgical site cleansed with hydrogen peroxide, saline W2D dressing applied with loose kerlix Discussed with pt importance nutrition, advised pt to ask for pain medications if she is in pain c/w strict NWB to bilateral lower extremities c/w PT: may perform upper body strengthening exercises and proximal leg exercises to prevent deconditioning Awaiting [place] authorization Prognosis for limb salvage is guarded but stable Will follow closely.
[2017-02-23] MEDS: (Lantus) Insulin Glargine, Recombinant SC SCH (22:09)
[2017-02-23] MEDS: DiphenhydrAMINE 50 mg/ml Inj IVP PRN (23:03)
[2017-02-24] MEDS: (Novolin R) Insulin Human Regular 100 units/ml vial SC SCH ×5 (08:20→21:32)
[2017-02-24 08:36] LABS: CALCIUM 9.5 mg/dl (8.6-10.4)
[2017-02-24] MEDS: Meropenem 500 MG in Sodium Chloride 0.9% 100 ML IVPB SCH ×2 (10:36→21:23)
[2017-02-24] MEDS: DiphenhydrAMINE 50 mg/ml Inj IVP PRN ×3 (11:16→23:55)
[2017-02-24] MEDS: Collagenase 250 Units/gm Ointment(30 gm) EXT SCH (12:00)
--- NOTE | 2017-02-24 13:16 | CP.PCM.PN ---
Subjective - Date & Time of Evaluation Date of Evaluation: 02/24/17 Time of Evaluation: 19:58 - Subjective Subjective: Patient is currently resting comfortably. Still having some discomfort in the right side of the foot. Last night that she had some sudden pain in the right foot following the slight injury to the right heel. , Increasing pain also sometimes noted. Vital signs stable. Chest good air entry, regular heart tone, nontender abdomen. Recently the peritoneal dialysis. Wound is being managed by the left wrist. Continue the current treatment. Objective - Vital Signs/Intake and Output Vital Signs (last 24 hours): Temp Pulse Resp BP Pulse Ox 98.1 F 82 20 120/66 98 02/24/17 09:10 02/24/17 09:10 02/24/17 09:10 02/24/17 11:16 02/24/17 09:10 - Medications Medications: Current Medications Acetaminophen (Tylenol 325mg Tab) 650 mg PO Q4 [facility] Last Admin: 02/24/17 12:28 Dose: Not Given Amlodipine Besylate (Norvasc) 10 mg PO DAILY [facility] Last Admin: 02/24/17 11:17 Dose: Not Given Aspirin (Ecotrin) 81 mg PO DAILY [facility] Last Admin: 02/24/17 11:16 Dose: 81 mg Calcium Acetate (Phoslo) 2,668 mg PO TIDCC [facility] Last Admin: 02/24/17 12:28 Dose: Not Given Carvedilol (Coreg) 12.5 mg PO BID [facility] Last Admin: 02/24/17 11:16 Dose: Not Given Clopidogrel Bisulfate (Plavix) 75 mg PO DAILY [facility] Last Admin: 02/24/17 11:15 Dose: 75 mg Collagenase (Santyl) 1 gm EXT DAILY [facility] Last Admin: 02/24/17 12:00 Dose: Not Given Diphenhydramine HCl (Benadryl) 25 mg IVP Q6 PRN PRN Reason: Itching / Pruritus Last Admin: 02/24/17 11:16 Dose: 25 mg Epoetin Alec (Procrit) 10,000 unit SC MWF [facility] Last Admin: 02/22/17 10:18 Dose: 10,000 unit Ferrous Sulfate (Feosol) 325 mg PO DAILY [facility] Last Admin: 02/24/17 12:27 Dose: 325 mg Meropenem 500 mg/ Sodium (Chloride) 100 mls @ 100 mls/hr IVPB Q12 [facility] Last Admin: 02/24/17 10:36 Dose: 100 mls/hr Insulin Glargine (Lantus) 20 unit SC HS [facility] Last Admin: 02/23/17 22:09 Dose: 20 units Insulin Human Regular (Novolin R) 0 unit SC ACHS [facility] PRN Reason: Protocol Last Admin: 02/24/17 12:33 Dose: Not Given Linezolid (Zyvox) 600 mg PO Q12 [facility] Last Admin: 02/24/17 11:15 Dose: 600 mg Losartan Potassium (Cozaar) 100 mg PO DAILY@1800 [facility] Last Admin: 02/23/17 18:04 Dose: 100 mg Morphine Sulfate (Morphine) 2 mg IVP Q4 PRN PRN Reason: Pain, moderate (4-7) Ondansetron HCl (Zofran Inj) 4 mg IVP Q8H PRN PRN Reason: Nausea/Vomiting Rosuvastatin Calcium (Crestor) 10 mg PO [facility] Last Admin: 02/23/17 22:09 Dose: 10 mg - Labs Labs: 02/23/17 07:10 02/24/17 08:08 PT 11.1 SECONDS (9.7-12.2) 02/12/17 07:14 INR 1.0 02/12/17 07:14 APTT 32 SECONDS (21-34) 02/12/17 07:14
--- NOTE | 2017-02-24 14:56 | CP.PCM.PN ---
Subjective - Date & Time of Evaluation Date of Evaluation: 02/24/17 Time of Evaluation: 10:00 - Subjective Subjective: slow progress still bed bound on iv rx Objective - Vital Signs/Intake and Output Vital Signs (last 24 hours): Temp Pulse Resp BP Pulse Ox 98.1 F 82 20 120/66 98 02/24/17 09:10 02/24/17 09:10 02/24/17 09:10 02/24/17 11:16 02/24/17 09:10 - Medications Medications: Current Medications Acetaminophen (Tylenol 325mg Tab) 650 mg PO Q4 [facility] Last Admin: 02/24/17 12:28 Dose: Not Given Amlodipine Besylate (Norvasc) 10 mg PO DAILY [facility] Last Admin: 02/24/17 11:17 Dose: Not Given Aspirin (Ecotrin) 81 mg PO DAILY [facility] Last Admin: 02/24/17 11:16 Dose: 81 mg Calcium Acetate (Phoslo) 2,668 mg PO TIDCC [facility] Last Admin: 02/24/17 12:28 Dose: Not Given Carvedilol (Coreg) 12.5 mg PO BID [facility] Last Admin: 02/24/17 11:16 Dose: Not Given Clopidogrel Bisulfate (Plavix) 75 mg PO DAILY [facility] Last Admin: 02/24/17 11:15 Dose: 75 mg Collagenase (Santyl) 1 gm EXT DAILY [facility] Last Admin: 02/24/17 12:00 Dose: Not Given Diphenhydramine HCl (Benadryl) 25 mg IVP Q6 PRN PRN Reason: Itching / Pruritus Last Admin: 02/24/17 11:16 Dose: 25 mg Epoetin Alec (Procrit) 10,000 unit SC MWF [facility] Last Admin: 02/22/17 10:18 Dose: 10,000 unit Ferrous Sulfate (Feosol) 325 mg PO DAILY [facility] Last Admin: 02/24/17 12:27 Dose: 325 mg Meropenem 500 mg/ Sodium (Chloride) 100 mls @ 100 mls/hr IVPB Q12 [facility] Last Admin: 02/24/17 10:36 Dose: 100 mls/hr Insulin Glargine (Lantus) 20 unit SC HS [facility] Last Admin: 02/23/17 22:09 Dose: 20 units Insulin Human Regular (Novolin R) 0 unit SC ACHS [facility] PRN Reason: Protocol Last Admin: 02/24/17 12:33 Dose: Not Given Linezolid (Zyvox) 600 mg PO Q12 [facility] Last Admin: 02/24/17 11:15 Dose: 600 mg Losartan Potassium (Cozaar) 100 mg PO DAILY@1800 [facility] Last Admin: 02/23/17 18:04 Dose: 100 mg Morphine Sulfate (Morphine) 2 mg IVP Q4 PRN PRN Reason: Pain, moderate (4-7) Ondansetron HCl (Zofran Inj) 4 mg IVP Q8H PRN PRN Reason: Nausea/Vomiting Rosuvastatin Calcium (Crestor) 10 mg PO HS [facility] Last Admin: 02/23/17 22:09 Dose: 10 mg - Labs Labs: 02/23/17 07:10 02/24/17 08:08 PT 11.1 SECONDS (9.7-12.2) 02/12/17 07:14 INR 1.0 02/12/17 07:14 APTT 32 SECONDS (21-34) 02/12/17 07:14 Assessment and Plan (1) Gangrene of right foot Status: Acute (2) Chronic anemia Status: Acute (3) Chronic congestive heart failure Status: Acute (4) Diabetes mellitus Status: Acute (5) ESRD on peritoneal dialysis Status: Acute
--- NOTE | 2017-02-24 17:53 | CP.PCM.PN ---
Subjective - Date & Time of Evaluation Date of Evaluation: 02/24/17 Time of Evaluation: 14:00 - Subjective Subjective: Podiatry progress note- Dr. Ordonez: 51 yo female patient seen at bedside today 12 days s/p right foot Lisfranc amputation. Pt seen resting in bed at time of visit, with right lower extremity rested on pillow. Pt is AOOx3. Alicia seen applied to bed today. Pt states that two nights ago she hit her foot on the side of the bed which woke her up screaming. Patient reports that she still experiences pain. Denies f/n/v/c/sob/ cp at this time. Objective - Vital Signs/Intake and Output Vital Signs (last 24 hours): Temp Pulse Resp BP Pulse Ox 98.5 F 95 H 20 128/76 93 L 02/24/17 16:15 02/24/17 16:15 02/24/17 16:15 02/24/17 17:38 02/24/17 16:15 Intake and Output: 02/24/17 02/24/17 06:59 18:59 Intake Total 500 Balance 500 - Medications Medications: Current Medications Acetaminophen (Tylenol 325mg Tab) 650 mg PO Q4 [facility] Last Admin: 02/24/17 16:32 Dose: Not Given Amlodipine Besylate (Norvasc) 10 mg PO DAILY [facility] Last Admin: 02/24/17 11:17 Dose: Not Given Aspirin (Ecotrin) 81 mg PO DAILY [facility] Last Admin: 02/24/17 11:16 Dose: 81 mg Calcium Acetate (Phoslo) 2,668 mg PO TIDCC [facility] Last Admin: 02/24/17 17:36 Dose: 2,668 mg Carvedilol (Coreg) 12.5 mg PO BID [facility] Last Admin: 02/24/17 17:38 Dose: 12.5 mg Clopidogrel Bisulfate (Plavix) 75 mg PO DAILY [facility] Last Admin: 02/24/17 11:15 Dose: 75 mg Collagenase (Santyl) 1 gm EXT DAILY [facility] Last Admin: 02/24/17 12:00 Dose: Not Given Diphenhydramine HCl (Benadryl) 25 mg IVP Q6 PRN PRN Reason: Itching / Pruritus Last Admin: 02/24/17 17:35 Dose: 25 mg Epoetin Alec (Procrit) 10,000 unit [facility] Last Admin: 02/22/17 10:18 Dose: 10,000 unit Ferrous Sulfate (Feosol) 325 mg PO DAILY [facility] Last Admin: 02/24/17 12:27 Dose: 325 mg Meropenem 500 mg/ Sodium (Chloride) 100 mls @ 100 mls/hr IVPB Q12 [facility] Last Admin: 02/24/17 10:36 Dose: 100 mls/hr Insulin Glargine (Lantus) 20 unit SC [facility] Last Admin: 02/23/17 22:09 Dose: 20 units Insulin Human Regular (Novolin R) 0 unit SC [facility] PRN Reason: Protocol Last Admin: 02/24/17 12:33 Dose: Not Given Linezolid (Zyvox) 600 mg PO Q12 [facility] Last Admin: 02/24/17 11:15 Dose: 600 mg Losartan Potassium (Cozaar) 100 mg PO DAILY@1800 [facility] Last Admin: 02/24/17 17:38 Dose: 100 mg Morphine Sulfate (Morphine) 2 mg IVP Q4 PRN PRN Reason: Pain, moderate (4-7) Last Admin: 02/24/17 17:35 Dose: 2 mg Ondansetron HCl (Zofran Inj) 4 mg IVP Q8H PRN PRN Reason: Nausea/Vomiting Rosuvastatin Calcium (Crestor) 10 mg PO [facility] Last Admin: 02/23/17 22:09 Dose: 10 mg - Labs Labs: 02/23/17 07:10 02/24/17 08:08 PT 11.1 SECONDS (9.7-12.2) 02/12/17 07:14 INR 1.0 02/12/17 07:14 APTT 32 SECONDS (21-34) 02/12/17 07:14 - Constitutional Appears: Well, Non-toxic, No Acute Distress - Extremities Exam Additional comments: RLE exam: Dressing to right foot appears c/d/i VASC- DP pulse is palpable, PT pulse non-palpable, skin temp runs warm to warm ( from proximal to distal), CFT < 3 sec to amputation flap, no pedal edema DERM- surgical incision site appears well-coapted, sutures are intact with no signs of over-tensioning, no dehiscence noted, no malodor, no fluctuance, no cellulitis, no purulence, no evidence of necrosis, distal leg temperature normal , scabbing noted over surgical incision site NEURO- pedal sensation is intact ORTHO- moderate pain to palpation of all aspects of amputation stump - Neurological Exam Neurological Exam: Alert, Awake, Oriented x3 - Psychiatric Exam Psychiatric exam: Normal Affect, Normal Mood Assessment and Plan - Assessment and Plan (Free Text) Assessment: 51 y/o female patient 12 days s/p right foot Lisfranc amputation Plan: Pt S&E at bedside Plan discussed in detail w/ attending Dr. Ordonez Chart labs and vitals reviewed: afebrile, WBC=12.2 (02/23/17) X-ray ordered right foot ESR ordered- pending Wound cx (02/15/17): + for S. Marcescens & VREF c/w IV abx as per ID Surgical site cleansed with hydrogen peroxide, saline W2D dressing applied with loose kerlix Discussed with pt importance nutrition, advised pt to ask for pain medications if she is in pain c/w strict NWB to bilateral lower extremities c/w PT: may perform upper body strengthening exercises and proximal leg exercises to prevent deconditioning Awaiting [place] authorization Prognosis for limb salvage is guarded but stable Will follow closely.
[2017-02-24] MEDS: (Lantus) Insulin Glargine, Recombinant SC SCH (21:23)
[2017-02-25] MEDS: (Novolin R) Insulin Human Regular 100 units/ml vial SC SCH ×4 (09:20→21:02)
[2017-02-25] MEDS: Meropenem 500 MG in Sodium Chloride 0.9% 100 ML IVPB SCH ×2 (09:21→21:36)
[2017-02-25] MEDS: EPOETIN ALFA 10,000 UNIT/ML ML SC SCH (09:25)
[2017-02-25] MEDS: Collagenase 250 Units/gm Ointment(30 gm) EXT SCH (10:00)
[2017-02-25] MEDS: DiphenhydrAMINE 50 mg/ml Inj IVP PRN ×2 (10:35→21:37)
--- NOTE | 2017-02-25 11:46 | CP.PCM.PN ---
Subjective - Date & Time of Evaluation Date of Evaluation: 02/25/17 Time of Evaluation: 11:44 - Subjective Subjective: seen and examined no events stable afebrile labs noted Objective - Vital Signs/Intake and Output Vital Signs (last 24 hours): Temp Pulse Resp BP Pulse Ox 98.4 F 90 20 135/68 94 L 02/25/17 08:00 02/25/17 09:17 02/25/17 08:00 02/25/17 09:24 02/25/17 08:00 Intake and Output: 02/25/17 02/25/17 06:59 18:59 Intake Total 600 Balance 600 - Medications Medications: Current Medications Acetaminophen (Tylenol 325mg Tab) 650 mg PO Q4 [facility] Last Admin: 02/25/17 08:47 Dose: Not Given Amlodipine Besylate (Norvasc) 10 mg PO DAILY [facility] Last Admin: 02/25/17 09:18 Dose: 10 mg Aspirin (Ecotrin) 81 mg PO DAILY [facility] Last Admin: 02/25/17 09:24 Dose: 81 mg Calcium Acetate (Phoslo) 2,668 mg PO TIDCC [facility] Last Admin: 02/25/17 09:19 Dose: 2,668 mg Carvedilol (Coreg) 12.5 mg PO BID [facility] Last Admin: 02/25/17 09:24 Dose: 12.5 mg Clopidogrel Bisulfate (Plavix) 75 mg PO DAILY [facility] Last Admin: 02/25/17 09:18 Dose: 75 mg Collagenase (Santyl) 1 gm EXT DAILY [facility] Last Admin: 02/24/17 12:00 Dose: Not Given Diphenhydramine HCl (Benadryl) 25 mg IVP Q6 PRN PRN Reason: Itching / Pruritus Last Admin: 02/25/17 10:35 Dose: 25 mg Epoetin Alec (Procrit) 10,000 unit SC MWF [facility] Last Admin: 02/25/17 09:25 Dose: 10,000 unit Ferrous Sulfate (Feosol) 325 mg PO DAILY [facility] Last Admin: 02/24/17 12:27 Dose: 325 mg Meropenem 500 mg/ Sodium (Chloride) 100 mls @ 100 mls/hr IVPB Q12 [facility] Last Admin: 02/25/17 09:21 Dose: 100 mls/hr Insulin Glargine (Lantus) 20 unit SC HS [facility] Last Admin: 02/24/17 21:23 Dose: 20 units Insulin Human Regular (Novolin R) 0 unit SC ACHS [facility] PRN Reason: Protocol Last Admin: 02/25/17 09:20 Dose: 2 unit Linezolid (Zyvox) 600 mg PO Q12 [facility] Last Admin: 02/25/17 09:22 Dose: 600 mg Losartan Potassium (Cozaar) 100 mg PO DAILY@1800 [facility] Last Admin: 02/24/17 17:38 Dose: 100 mg Morphine Sulfate (Morphine) 2 mg IVP Q4 PRN PRN Reason: Pain, moderate (4-7) Last Admin: 02/25/17 09:20 Dose: 2 mg Ondansetron HCl (Zofran Inj) 4 mg IVP Q8H PRN PRN Reason: Nausea/Vomiting Rosuvastatin Calcium (Crestor) 10 mg PO [facility] Last Admin: 02/24/17 21:25 Dose: Not Given - Labs Labs: 02/23/17 07:10 02/24/17 08:08 PT 11.1 SECONDS (9.7-12.2) 02/12/17 07:14 INR 1.0 02/12/17 07:14 APTT 32 SECONDS (21-34) 02/12/17 07:14 - Constitutional Appears: No Acute Distress, Chronically Ill - Head Exam Head Exam: NORMAL INSPECTION - Eye Exam Eye Exam: Normal appearance - ENT Exam ENT Exam: Mucous Membranes Moist, Normal Exam - Neck Exam Neck Exam: Normal Inspection - Respiratory Exam Respiratory Exam: Clear to Ausculation Bilateral, NORMAL BREATHING PATTERN - Cardiovascular Exam Cardiovascular Exam: REGULAR RHYTHM, RRR - GI/Abdominal Exam GI & Abdominal Exam: Distended, Soft, Normal Bowel Sounds Additional comments: pd fluid - Extremities Exam Additional comments: rt foot in dressing left foot no edema b/l chronic skin changes Assessment and Plan (1) Gangrene of right foot Status: Acute (2) Anemia Status: Acute (3) Diabetes mellitus Status: Acute (4) ESRD on peritoneal dialysis Status: Acute (5) Hyperkalemia Status: Acute (6) Hypertension Status: Acute - Assessment and Plan (Free Text) Assessment: maintain pd on anabela. iron stores adequate blood transfusion as needed await leah placement
--- NOTE | 2017-02-25 14:36 | CP.PCM.PN ---
Subjective - Date & Time of Evaluation Date of Evaluation: 02/25/17 Time of Evaluation: 12:10 - Subjective Subjective: Podiatry progress note- Dr. Ordonez: 51 yo female patient seen at bedside 13 days s/p right foot Lisfranc amputation. Pt is seen resting comfortably in bed at time of visit with right lower extremity resting on pillow. Pt states that over the weekend she hit her right foot on the bed which caused her a great deal of pain. Says that she is still having pain today but does say the pain medication helps. Denies f/n/v/c/ sob/cp/weakness today. Says physical therapy has been working with her. Reports trying to eat more food. No other complaints. Objective - Vital Signs/Intake and Output Vital Signs (last 24 hours): Temp Pulse Resp BP Pulse Ox 98.4 F 90 20 135/68 94 L 02/25/17 08:00 02/25/17 09:17 02/25/17 08:00 02/25/17 09:24 02/25/17 08:00 Intake and Output: 02/25/17 02/25/17 06:59 18:59 Intake Total 600 Balance 600 - Medications Medications: Current Medications Acetaminophen (Tylenol 325mg Tab) 650 mg PO Q4 [facility] Last Admin: 02/25/17 12:14 Dose: Not Given Amlodipine Besylate (Norvasc) 10 mg PO DAILY [facility] Last Admin: 02/25/17 09:18 Dose: 10 mg Aspirin (Ecotrin) 81 mg PO DAILY [facility] Last Admin: 02/25/17 09:24 Dose: 81 mg Calcium Acetate (Phoslo) 2,668 mg PO TIDCC [facility] Last Admin: 02/25/17 14:29 Dose: 2,668 mg Carvedilol (Coreg) 12.5 mg PO BID [facility] Last Admin: 02/25/17 09:24 Dose: 12.5 mg Clopidogrel Bisulfate (Plavix) 75 mg PO DAILY [facility] Last Admin: 02/25/17 09:18 Dose: 75 mg Collagenase (Santyl) 1 gm EXT DAILY [facility] Last Admin: 02/25/17 10:00 Dose: Not Given Diphenhydramine HCl (Benadryl) 25 mg IVP Q6 PRN PRN Reason: Itching / Pruritus Last Admin: 02/25/17 10:35 Dose: 25 mg Epoetin Alec (Procrit) 10,000 unit SC MWF [facility] Last Admin: 02/25/17 09:25 Dose: 10,000 unit Ferrous Sulfate (Feosol) 325 mg PO DAILY [facility] Last Admin: 02/25/17 09:24 Dose: 325 mg Meropenem 500 mg/ Sodium (Chloride) 100 mls @ 100 mls/hr IVPB Q12 [facility] Last Admin: 02/25/17 09:21 Dose: 100 mls/hr Insulin Glargine (Lantus) [address] [facility] Last Admin: 02/24/17 21:23 Dose: 20 units Insulin Human Regular (Novolin R) 0 unit SC ACHS [facility] PRN Reason: Protocol Last Admin: 02/25/17 12:14 Dose: Not Given Linezolid (Zyvox) 600 mg PO Q12 [facility] Last Admin: 02/25/17 09:22 Dose: 600 mg Losartan Potassium (Cozaar) 100 mg PO DAILY@1800 [facility] Last Admin: 02/24/17 17:38 Dose: 100 mg Morphine Sulfate (Morphine) 2 mg IVP Q4 PRN PRN Reason: Pain, moderate (4-7) Last Admin: 02/25/17 14:34 Dose: 2 mg Ondansetron HCl (Zofran Inj) 4 mg IVP Q8H PRN PRN Reason: Nausea/Vomiting Rosuvastatin Calcium (Crestor) [address] [facility] Last Admin: 02/24/17 21:25 Dose: Not Given - Labs Labs: 02/23/17 07:10 02/24/17 08:08 PT 11.1 SECONDS (9.7-12.2) 02/12/17 07:14 INR 1.0 02/12/17 07:14 APTT 32 SECONDS (21-34) 02/12/17 07:14 - Constitutional Appears: Non-toxic, No Acute Distress - Extremities Exam Extremities Exam: absent: Calf Tenderness Additional comments: RLE exam: Dressing to right foot appears c/d/i VASC- DP pulse is palpable, PT pulse non-palpable, skin temp runs warm to warm ( from proximal to distal), CFT < 3 sec to amputation flap, no pedal edema DERM- surgical incision site appears well-coapted, sutures are intact with no signs of over-tensioning, no dehiscence noted, no malodor, no fluctuance, no cellulitis, no purulence, no evidence of necrosis, there appears to be some erythema to medial aspect of flap today, distal leg temperature normal, scabbing noted over surgical incision site NEURO- pedal sensation is intact ORTHO- moderate pain to palpation of all aspects of amputation stump - Neurological Exam Neurological Exam: Alert, Awake, Oriented x3 - Psychiatric Exam Psychiatric exam: Anxious Assessment and Plan - Assessment and Plan (Free Text) Assessment: 51 y/o female patient 13 days s/p right foot Lisfranc amputation Plan: Pt S&E at bedside Plan discussed in detail with attending Dr. Ordonez Chart labs and vitals reviewed: afebrile, WBC=12.2 (02/23/17) ESR (02/23): >140 X-ray right foot (02/24): no evidence fx or dislocation Wound cx (02/15/17): + for S. Marcescens & VREF c/w IV abx as per ID Surgical site cleansed with hydrogen peroxide, saline W2D dressing applied with loose kerlix c/w strict NWB to bilateral lower extremities c/w PT: may perform upper body strengthening exercises and proximal leg exercises to prevent deconditioning Awaiting [place] authorization Prognosis for limb salvage is guarded but stable Will follow closely.
--- NOTE | 2017-02-25 15:34 | RAD ---
PROCEDURE: Right Foot Radiographs. HISTORY: right foot pain COMPARISON: 02/12/2017 FINDINGS: BONES: Status post midfoot amputation. No acute osseous fracture. No periosteal reaction or osseous erosion. JOINTS: Normal. SOFT TISSUES: Vascular calcifications. OTHER FINDINGS: None. IMPRESSION: Midfoot amputation.
[2017-02-25] MEDS: (Lantus) Insulin Glargine, Recombinant SC SCH (21:36)
--- NOTE | 2017-02-25 21:59 | CP.PCM.PN ---
Subjective - Date & Time of Evaluation Date of Evaluation: 02/25/17 Time of Evaluation: 21:58 - Subjective Subjective: has some pain over the right leg, better than yesterday. Still feeling more pain and taking medications on and off. Bowel movements are normal, eating well. Currently on multiple antibiotic. Labs nonspecific Clinic is stable otherwise. We'll continue the current treatment. We will speak to the infectious disease about the antibiotic duration, physical therapy. Podiatry follow-up Objective - Vital Signs/Intake and Output Vital Signs (last 24 hours): Temp Pulse Resp BP Pulse Ox 98.0 F 88 20 133/75 95 02/25/17 15:10 02/25/17 21:32 02/25/17 21:32 02/25/17 21:32 02/25/17 15:10 - Medications Medications: Current Medications Acetaminophen (Tylenol 325mg Tab) 650 mg PO Q4 [facility] Last Admin: 02/25/17 20:07 Dose: Not Given Amlodipine Besylate (Norvasc) 10 mg PO DAILY [facility] Last Admin: 02/25/17 09:18 Dose: 10 mg Aspirin (Ecotrin) 81 mg PO DAILY [facility] Last Admin: 02/25/17 09:24 Dose: 81 mg Calcium Acetate (Phoslo) 2,668 mg PO TIDCC [facility] Last Admin: 02/25/17 18:29 Dose: 2,668 mg Carvedilol (Coreg) 12.5 mg PO BID [facility] Last Admin: 02/25/17 18:30 Dose: 12.5 mg Clopidogrel Bisulfate (Plavix) 75 mg PO DAILY [facility] Last Admin: 02/25/17 09:18 Dose: 75 mg Collagenase (Santyl) 1 gm EXT DAILY [facility] Last Admin: 02/25/17 10:00 Dose: Not Given Diphenhydramine HCl (Benadryl) 25 mg IVP Q4 PRN PRN Reason: Itching / Pruritus Last Admin: 02/25/17 21:37 Dose: 25 mg Epoetin Alec (Procrit) 10,000 unit SC MWF [facility] Last Admin: 02/25/17 09:25 Dose: 10,000 unit Ferrous Sulfate (Feosol) 325 mg PO DAILY [facility] Last Admin: 02/25/17 09:24 Dose: 325 mg Meropenem 500 mg/ Sodium (Chloride) 100 mls @ 100 mls/hr IVPB Q12 [facility] Last Admin: 02/25/17 21:36 Dose: 100 mls/hr Insulin Glargine (Lantus) 20 unit SC HS [facility] Last Admin: 02/25/17 21:36 Dose: 20 units Insulin Human Regular (Novolin R) 0 unit SC ACHS [facility] PRN Reason: Protocol Last Admin: 02/25/17 21:02 Dose: Not Given Linezolid (Zyvox) 600 mg PO Q12 [facility] Last Admin: 02/25/17 21:36 Dose: 600 mg Losartan Potassium (Cozaar) 100 mg PO DAILY@1800 [facility] Last Admin: 02/25/17 18:30 Dose: 100 mg Morphine Sulfate (Morphine) 2 mg IVP Q4 PRN PRN Reason: Pain, moderate (4-7) Last Admin: 02/25/17 21:37 Dose: 2 mg Rosuvastatin Calcium (Crestor) 10 mg PO HS [facility] Last Admin: 02/25/17 21:38 Dose: Not Given - Labs Labs: 02/23/17 07:10 02/24/17 08:08 PT 11.1 SECONDS (9.7-12.2) 02/12/17 07:14 INR 1.0 02/12/17 07:14 APTT 32 SECONDS (21-34) 02/12/17 07:14
[2017-02-26] MEDS: (Novolin R) Insulin Human Regular 100 units/ml vial SC SCH ×4 (07:34→21:18)
[2017-02-26] MEDS: Collagenase 250 Units/gm Ointment(30 gm) EXT SCH (09:50)
[2017-02-26] MEDS: Meropenem 500 MG in Sodium Chloride 0.9% 100 ML IVPB SCH ×2 (09:50→21:50)
[2017-02-26] MEDS: DiphenhydrAMINE 50 mg/ml Inj IVP PRN ×3 (09:51→21:08)
--- NOTE | 2017-02-26 11:39 | CP.PCM.PN ---
Subjective - Date & Time of Evaluation Date of Evaluation: 02/26/17 Time of Evaluation: 10:45 - Subjective Subjective: Podiatry progress note- Dr. Ordonez: 51 yo female patient seen at bedside 14 days s/p right foot Lisfranc amp with Dr. Ordonez present. Pt is seen resting in bed at time of visit. Reports pain to right foot but is controlled with pain meds. Denies f/n/v/c/sob/cp/ weakness/dizziness at this time. Says she has been performing strengthening exercises with trapeze while in bed. Reports a better appetite. No other complaints. Objective - Vital Signs/Intake and Output Vital Signs (last 24 hours): Temp Pulse Resp BP Pulse Ox 98.2 F 88 20 113/54 L 97 02/26/17 08:00 02/26/17 08:00 02/26/17 08:00 02/26/17 09:56 02/26/17 08:00 Intake and Output: 02/26/17 02/26/17 06:59 18:59 Intake Total 720 Balance 720 - Medications Medications: Current Medications Acetaminophen (Tylenol 325mg Tab) 650 mg PO Q4 [facility] Last Admin: 02/26/17 09:56 Dose: Not Given Amlodipine Besylate (Norvasc) 10 mg PO DAILY [facility] Last Admin: 02/26/17 09:56 Dose: 10 mg Aspirin (Ecotrin) 81 mg PO DAILY [facility] Last Admin: 02/26/17 09:52 Dose: 81 mg Calcium Acetate (Phoslo) 2,668 mg PO TIDCC [facility] Last Admin: 02/26/17 08:25 Dose: 2,668 mg Carvedilol (Coreg) 12.5 mg PO BID [facility] Last Admin: 02/26/17 09:56 Dose: 12.5 mg Clopidogrel Bisulfate (Plavix) 75 mg PO DAILY [facility] Last Admin: 02/26/17 09:50 Dose: 75 mg Collagenase (Santyl) 1 gm EXT DAILY [facility] Last Admin: 02/26/17 09:50 Dose: 1 applic Diphenhydramine HCl (Benadryl) 25 mg IVP Q4 PRN PRN Reason: Itching / Pruritus Last Admin: 02/26/17 09:51 Dose: 25 mg Epoetin Alec (Procrit) 10,000 unit SC MWF [facility] Last Admin: 02/25/17 09:25 Dose: 10,000 unit Ferrous Sulfate (Feosol) 325 mg PO DAILY [facility] Last Admin: 02/26/17 09:52 Dose: 325 mg Meropenem 500 mg/ Sodium (Chloride) 100 mls @ 100 mls/hr IVPB Q12 [facility] Last Admin: 02/26/17 09:50 Dose: 100 mls/hr Insulin Glargine (Lantus) 20 unit SC [facility] Last Admin: 02/25/17 21:36 Dose: 20 units Insulin Human Regular (Novolin R) 0 unit SC ACHS [facility] PRN Reason: Protocol Last Admin: 02/26/17 07:34 Dose: Not Given Linezolid (Zyvox) 600 mg PO Q12 [facility] Last Admin: 02/26/17 09:52 Dose: 600 mg Losartan Potassium (Cozaar) 100 mg PO DAILY@1800 [facility] Last Admin: 02/25/17 18:30 Dose: 100 mg Morphine Sulfate (Morphine) 2 mg IVP Q4 PRN PRN Reason: Pain, moderate (4-7) Last Admin: 02/26/17 09:51 Dose: 2 mg Rosuvastatin Calcium (Crestor) 10 mg PO [facility] Last Admin: 02/25/17 21:38 Dose: Not Given - Labs Labs: 02/23/17 07:10 02/24/17 08:08 PT 11.1 SECONDS (9.7-12.2) 02/12/17 07:14 INR 1.0 02/12/17 07:14 APTT 32 SECONDS (21-34) 02/12/17 07:14 - Constitutional Appears: Non-toxic, No Acute Distress - Extremities Exam Extremities Exam: absent: Calf Tenderness Additional comments: RLE exam: Dressing to right foot appears c/d/i VASC- DP pulse is palpable, PT pulse non-palpable, skin temp runs warm to warm ( from proximal to distal), CFT < 3 sec to amputation flap, no pedal edema DERM- surgical incision site appears mostly well-coapted, however there is some minimal dehisence noted to medial aspect of wound today with slight serosanguinous drainage, all sutures are intact, no malodor, no fluctuance, no cellulitis, no purulence, no evidence of necrosis, there appears to be some erythema to medial aspect of flap today however no calor, distal leg temperature normal, scabbing noted over surgical incision site NEURO- pedal sensation is intact ORTHO- moderate pain to palpation of all aspects of amputation stump - Neurological Exam Neurological Exam: Alert, Awake, Oriented x3 - Psychiatric Exam Psychiatric exam: Normal Affect, Normal Mood Assessment and Plan - Assessment and Plan (Free Text) Assessment: 51 y/o female patient 14 days s/p right foot Lisfranc amputation Plan: Pt S&E at bedside with Dr. Ordonez present Chart labs and vitals reviewed: afebrile, WBC12.2 (02/23/17), ESR (02/23) >140 X-ray right foot (02/24): no evidence fx or dislocation Wound cx (02/15/17): + for S. Marcescens & VREF c/w IV abx as per ID Surgical site cleansed with hydrogen peroxide, saline W2D dressing applied with loose kerlix c/w strict NWB to bilateral lower extremities c/w PT: may perform upper body strengthening exercises and proximal leg exercises to prevent deconditioning Per Dr. Ordonez recommending D/C to [place] (we are awaiting authorization) Prognosis for limb salvage is guarded but stable Will follow closely.
--- NOTE | 2017-02-26 11:56 | CP.PCM.PN ---
Subjective - Date & Time of Evaluation Date of Evaluation: 02/26/17 Time of Evaluation: 11:54 - Subjective Subjective: no events good oral intake no nausea vomiting diarrhea last bm yesterday rt foot pain controlled Objective - Vital Signs/Intake and Output Vital Signs (last 24 hours): Temp Pulse Resp BP Pulse Ox 98.2 F 88 20 113/54 L 97 02/26/17 08:00 02/26/17 08:00 02/26/17 08:00 02/26/17 09:56 02/26/17 08:00 Intake and Output: 02/26/17 02/26/17 06:59 18:59 Intake Total 720 Balance 720 - Medications Medications: Current Medications Acetaminophen (Tylenol 325mg Tab) 650 mg PO Q4 [facility] Last Admin: 02/26/17 09:56 Dose: Not Given Amlodipine Besylate (Norvasc) 10 mg PO DAILY [facility] Last Admin: 02/26/17 09:56 Dose: 10 mg Aspirin (Ecotrin) 81 mg PO DAILY [facility] Last Admin: 02/26/17 09:52 Dose: 81 mg Calcium Acetate (Phoslo) 2,668 mg PO TIDCC [facility] Last Admin: 02/26/17 08:25 Dose: 2,668 mg Carvedilol (Coreg) 12.5 mg PO BID [facility] Last Admin: 02/26/17 09:56 Dose: 12.5 mg Clopidogrel Bisulfate (Plavix) 75 mg PO DAILY [facility] Last Admin: 02/26/17 09:50 Dose: 75 mg Collagenase (Santyl) 1 gm EXT DAILY [facility] Last Admin: 02/26/17 09:50 Dose: 1 applic Diphenhydramine HCl (Benadryl) 25 mg IVP Q4 PRN PRN Reason: Itching / Pruritus Last Admin: 02/26/17 09:51 Dose: 25 mg Epoetin Alec (Procrit) 10,000 unit SC MWF [facility] Last Admin: 02/25/17 09:25 Dose: 10,000 unit Ferrous Sulfate (Feosol) 325 mg PO DAILY [facility] Last Admin: 02/26/17 09:52 Dose: 325 mg Meropenem 500 mg/ Sodium (Chloride) 100 mls @ 100 mls/hr IVPB Q12 [facility] Last Admin: 02/26/17 09:50 Dose: 100 mls/hr Insulin Glargine (Lantus) 20 unit SC [facility] Last Admin: 02/25/17 21:36 Dose: 20 units Insulin Human Regular (Novolin R) 0 unit SC ACHS [facility] PRN Reason: Protocol Last Admin: 02/26/17 07:34 Dose: Not Given Linezolid (Zyvox) 600 mg PO Q12 [facility] Last Admin: 02/26/17 09:52 Dose: 600 mg Losartan Potassium (Cozaar) 100 mg PO DAILY@1800 [facility] Last Admin: 02/25/17 18:30 Dose: 100 mg Morphine Sulfate (Morphine) 2 mg IVP Q4 PRN PRN Reason: Pain, moderate (4-7) Last Admin: 02/26/17 09:51 Dose: 2 mg Rosuvastatin Calcium (Crestor) 10 mg PO [facility] Last Admin: 02/25/17 21:38 Dose: Not Given - Labs Labs: 02/23/17 07:10 02/24/17 08:08 PT 11.1 SECONDS (9.7-12.2) 02/12/17 07:14 INR 1.0 02/12/17 07:14 APTT 32 SECONDS (21-34) 02/12/17 07:14 - Constitutional Appears: Non-toxic, No Acute Distress, Chronically Ill - Head Exam Head Exam: NORMAL INSPECTION - Eye Exam Eye Exam: Normal appearance - ENT Exam ENT Exam: Mucous Membranes Moist, Normal Exam - Neck Exam Neck Exam: Normal Inspection - Respiratory Exam Respiratory Exam: Clear to Ausculation Bilateral, NORMAL BREATHING PATTERN - Cardiovascular Exam Cardiovascular Exam: REGULAR RHYTHM, RRR - GI/Abdominal Exam GI & Abdominal Exam: Distended, Soft, Hypoactive Bowel Sounds (peritoneal fluid. pd catheter) - Extremities Exam Extremities Exam: Pedal Edema (rt foot in dressing. chronic skin changes/stasis) Assessment and Plan (1) Gangrene of right foot Status: Acute (2) Anemia Status: Acute (3) Diabetes mellitus Status: Acute (4) ESRD on peritoneal dialysis Status: Acute (5) Hyperkalemia Status: Acute (6) Hypertension Status: Acute - Assessment and Plan (Free Text) Assessment: maintain pd. labs ordered for tomorrow encourage po protein, recommend protein supplements pain control rehab placement
--- NOTE | 2017-02-26 20:16 | CP.PCM.PN ---
Subjective - Date & Time of Evaluation Date of Evaluation: 02/26/17 Time of Evaluation: 20:15 - Subjective Subjective: pain controlled no new symptoms wll get cbc and cmp pain control physical therapy ID f/u for antibiotic Objective - Vital Signs/Intake and Output Vital Signs (last 24 hours): Temp Pulse Resp BP Pulse Ox 98.3 F 89 18 137/76 99 02/26/17 16:00 02/26/17 16:00 02/26/17 16:00 02/26/17 17:33 02/26/17 16:00 - Medications Medications: Current Medications Acetaminophen (Tylenol 325mg Tab) 650 mg PO Q4 [facility] Last Admin: 02/26/17 17:32 Dose: 650 mg Amlodipine Besylate (Norvasc) 10 mg PO DAILY [facility] Last Admin: 02/26/17 09:56 Dose: 10 mg Aspirin (Ecotrin) 81 mg PO DAILY [facility] Last Admin: 02/26/17 09:52 Dose: 81 mg Calcium Acetate (Phoslo) 2,668 mg PO TIDCC [facility] Last Admin: 02/26/17 17:31 Dose: 2,668 mg Carvedilol (Coreg) 12.5 mg PO BID [facility] Last Admin: 02/26/17 17:33 Dose: 12.5 mg Clopidogrel Bisulfate (Plavix) 75 mg PO DAILY [facility] Last Admin: 02/26/17 09:50 Dose: 75 mg Collagenase (Santyl) 1 gm EXT DAILY [facility] Last Admin: 02/26/17 09:50 Dose: 1 applic Diphenhydramine HCl (Benadryl) 25 mg IVP Q4 PRN PRN Reason: Itching / Pruritus Last Admin: 02/26/17 14:35 Dose: 25 mg Epoetin Alec (Procrit) 10,000 unit SC MWF [facility] Last Admin: 02/25/17 09:25 Dose: 10,000 unit Ferrous Sulfate (Feosol) 325 mg PO DAILY [facility] Last Admin: 02/26/17 09:52 Dose: 325 mg Meropenem 500 mg/ Sodium (Chloride) 100 mls @ 100 mls/hr IVPB Q12 [facility] Last Admin: 02/26/17 09:50 Dose: 100 mls/hr Insulin Glargine (Lantus) 20 unit SC HS [facility] Last Admin: 02/25/17 21:36 Dose: 20 units Insulin Human Regular (Novolin R) 0 unit SC ACHS [facility] PRN Reason: Protocol Last Admin: 02/26/17 17:28 Dose: Not Given Linezolid (Zyvox) 600 mg PO Q12 [facility] Last Admin: 02/26/17 09:52 Dose: 600 mg Losartan Potassium (Cozaar) 100 mg PO DAILY@1800 [facility] Last Admin: 02/26/17 17:33 Dose: 100 mg Morphine Sulfate (Morphine) 2 mg IVP Q4 PRN PRN Reason: Pain, moderate (4-7) Last Admin: 02/26/17 14:36 Dose: 2 mg Rosuvastatin Calcium (Crestor) 10 mg PO HS [facility] Last Admin: 02/25/17 21:38 Dose: Not Given - Labs Labs: 02/23/17 07:10 02/24/17 08:08 PT 11.1 SECONDS (9.7-12.2) 02/12/17 07:14 INR 1.0 02/12/17 07:14 APTT 32 SECONDS (21-34) 02/12/17 07:14
[2017-02-26] MEDS: (Lantus) Insulin Glargine, Recombinant SC SCH (21:07)
[2017-02-27] MEDS: DiphenhydrAMINE 50 mg/ml Inj IVP PRN ×4 (05:10→22:05)
[2017-02-27 07:25] LABS: BASO % 0.4 % (0.0-2.0); EOS # 0.2 K/uL (0.0-0.7); EOS % 1.8 % (0.0-4.0); HEMATOCRIT 23.6 % (34.0-47.0); LYMPH # 1.5 K/uL (1.0-4.3); LYMPH % 12.9 % (20.0-40.0); MEAN CELL VOLUME 93.3 fL (81.0-99.0); MEAN CORPUSCULAR HEMOGLOBIN 28.8 pg (27.0-31.0); MEAN CORPUSCULAR HGB CONC 30.9 g/dL (33.0-37.0); MEAN PLATELET VOLUME 6.9 fL (7.2-11.7); MONO # 0.5 K/uL (0.0-0.8); MONO % 4.8 % (0.0-10.0); NRBC % 0.2 % (0.0-2.0); WHITE BLOOD COUNT 11.5 K/uL (4.8-10.8)
[2017-02-27 07:42] LABS: POTASSIUM 4.5 mmol/L (3.6-5.2)
[2017-02-27 07:44] LABS: ALB/GLOB RATIO 0.8 (1.0-2.1); BILIRUBIN,TOTAL 0.4 mg/dL (0.2-1.3); PHOSPHOROUS 5.1 mg/dL (2.5-4.5); TOTAL PROTEIN 6.3 g/dL (6.3-8.3)
[2017-02-27 07:45] LABS: CALCIUM 10.5 mg/dl (8.6-10.4)
[2017-02-27] MEDS: EPOETIN ALFA 10,000 UNIT/ML ML SC SCH (09:54)
[2017-02-27] MEDS: Meropenem 500 MG in Sodium Chloride 0.9% 100 ML IVPB SCH ×2 (10:05→22:05)
[2017-02-27] MEDS: Collagenase 250 Units/gm Ointment(30 gm) EXT SCH (10:06)
[2017-02-27] MEDS: (Novolin R) Insulin Human Regular 100 units/ml vial SC SCH ×4 (10:06→22:04)
--- NOTE | 2017-02-27 14:31 | CP.PCM.PN ---
Subjective - Date & Time of Evaluation Date of Evaluation: 02/27/17 Time of Evaluation: 11:00 - Subjective Subjective: Podiatry progress note- Dr. Ordonez: 51 yo female patient seen at bedside 15 days s/p right foot Lisfranc amp. Pt seen resting comfortably in bed at time of visit, appears to be in NAD. Says pain to the right foot is controlled today. Reports better appetite. Denies f/n/ v/c/sob/cp/weakness or dizziness. Objective - Vital Signs/Intake and Output Vital Signs (last 24 hours): Temp Pulse Resp BP Pulse Ox 98.5 F 88 20 127/76 93 L 02/27/17 07:00 02/27/17 09:53 02/27/17 07:00 02/27/17 10:04 02/27/17 07:00 Intake and Output: 02/27/17 02/27/17 06:59 18:59 Intake Total 750 Balance 750 - Medications Medications: Current Medications Acetaminophen (Tylenol 325mg Tab) 650 mg PO Q4 [facility] Last Admin: 02/27/17 12:00 Dose: Not Given Amlodipine Besylate (Norvasc) 10 mg PO DAILY [facility] Last Admin: 02/27/17 10:04 Dose: 10 mg Aspirin (Ecotrin) 81 mg PO DAILY [facility] Last Admin: 02/27/17 10:05 Dose: 81 mg Calcium Acetate (Phoslo) 2,668 mg PO TIDCC [facility] Last Admin: 02/27/17 14:23 Dose: 2,668 mg Carvedilol (Coreg) 12.5 mg PO BID [facility] Last Admin: 02/27/17 10:04 Dose: 12.5 mg Clopidogrel Bisulfate (Plavix) 75 mg PO DAILY [facility] Last Admin: 02/27/17 10:04 Dose: 75 mg Collagenase (Santyl) 1 gm EXT DAILY [facility] Last Admin: 02/27/17 10:06 Dose: Not Given Diphenhydramine HCl (Benadryl) 25 mg IVP Q4 PRN PRN Reason: Itching / Pruritus Last Admin: 02/27/17 10:33 Dose: 25 mg Epoetin Alec (Procrit) 10,000 unit SC MWF [facility] Last Admin: 02/27/17 09:54 Dose: 10,000 unit Ferrous Sulfate (Feosol) 325 mg PO DAILY [facility] Last Admin: 02/27/17 10:05 Dose: 325 mg Meropenem 500 mg/ Sodium (Chloride) 100 mls @ 100 mls/hr IVPB Q12 [facility] Last Admin: 02/27/17 10:05 Dose: 100 mls/hr Insulin Glargine (Lantus) 20 unit SC [facility] Last Admin: 02/26/17 21:07 Dose: 20 units Insulin Human Regular (Novolin R) 0 unit SC ACHS [facility] PRN Reason: Protocol Last Admin: 02/27/17 10:06 Dose: Not Given Linezolid (Zyvox) 600 mg PO Q12 [facility] Last Admin: 02/27/17 10:05 Dose: 600 mg Losartan Potassium (Cozaar) 100 mg PO DAILY@1800 [facility] Last Admin: 02/26/17 17:33 Dose: 100 mg Morphine Sulfate (Morphine) 2 mg IVP Q4 PRN PRN Reason: Pain, moderate (4-7) Last Admin: 02/27/17 10:33 Dose: 2 mg Rosuvastatin Calcium (Crestor) 10 mg PO [facility] Last Admin: 02/26/17 21:07 Dose: Not Given - Labs Labs: 02/27/17 07:07 02/27/17 07:07 PT 11.1 SECONDS (9.7-12.2) 02/12/17 07:14 INR 1.0 02/12/17 07:14 APTT 32 SECONDS (21-34) 02/12/17 07:14 - Constitutional Appears: Non-toxic - Extremities Exam Extremities Exam: absent: Calf Tenderness Additional comments: RLE exam: Dressing to right foot appears c/d/i VASC- DP pulse is palpable, PT pulse non-palpable, skin temp runs warm to warm ( from proximal to distal), CFT < 3 sec to amputation flap, no pedal edema DERM- surgical incision site appears mostly well-coapted, however there is some minimal dehisence noted to medial aspect of wound today with slight serosanguinous drainage, all sutures are intact, no malodor, no fluctuance, no cellulitis, no purulence, no evidence of necrosis, there appears to be some erythema to medial aspect of flap today however no calor, distal leg temperature normal, scabbing noted over surgical incision site NEURO- pedal sensation is intact ORTHO- moderate pain to palpation of all aspects of amputation stump - Neurological Exam Neurological Exam: Alert, Awake, Oriented x3 - Psychiatric Exam Psychiatric exam: Normal Affect, Normal Mood Assessment and Plan - Assessment and Plan (Free Text) Assessment: 51 y/o female patient 15 days s/p right foot Lisfranc amputation Plan: Pt S&E at bedside Plan discussed with Dr. Ordonez Chart,labs, vitals reviewed: afebrile, WBC 11.5 c/w IV abx as per ID Wound cx taken: results pending surgical site cleansed with hydrogen peroxide, saline W2D dressing applied with loose kerlix c/w strict NWB to bilateral lower extremities c/w PT: may perform upper body strengthening exercises and proximal leg exercises to prevent deconditioning Per Dr. Ordonez recommending D/C to [place] (we are still awaiting authorization ) Prognosis for limb salvage is guarded but stable Will follow closely.
--- NOTE | 2017-02-27 15:32 | CP.PCM.PN ---
Subjective - Date & Time of Evaluation Date of Evaluation: 02/27/17 Time of Evaluation: 15:30 - Subjective Subjective: CCPD going well appears euvolemic no fever or chills no cloudy fluid right foot with tolerable pain no chest pain no sob no nausea no vomiting no rash no arthralgias appetite good notes picc line not working well Objective - Vital Signs/Intake and Output Vital Signs (last 24 hours): Temp Pulse Resp BP Pulse Ox 98.5 F 88 20 127/76 93 L 02/27/17 07:00 02/27/17 09:53 02/27/17 07:00 02/27/17 10:04 02/27/17 07:00 Intake and Output: 02/27/17 02/27/17 06:59 18:59 Intake Total 750 Balance 750 - Medications Medications: Current Medications Acetaminophen (Tylenol 325mg Tab) 650 mg PO Q4 [facility] Last Admin: 02/27/17 12:00 Dose: Not Given Amlodipine Besylate (Norvasc) 10 mg PO DAILY [facility] Last Admin: 02/27/17 10:04 Dose: 10 mg Aspirin (Ecotrin) 81 mg PO DAILY [facility] Last Admin: 02/27/17 10:05 Dose: 81 mg Calcium Acetate (Phoslo) 2,668 mg PO TIDCC [facility] Last Admin: 02/27/17 14:23 Dose: 2,668 mg Carvedilol (Coreg) 12.5 mg PO BID [facility] Last Admin: 02/27/17 10:04 Dose: 12.5 mg Clopidogrel Bisulfate (Plavix) 75 mg PO DAILY [facility] Last Admin: 02/27/17 10:04 Dose: 75 mg Collagenase (Santyl) 1 gm EXT DAILY [facility] Last Admin: 02/27/17 10:06 Dose: Not Given Diphenhydramine HCl (Benadryl) 25 mg IVP Q4 PRN PRN Reason: Itching / Pruritus Last Admin: 02/27/17 10:33 Dose: 25 mg Epoetin Alec (Procrit) 10,000 unit SC MWF [facility] Last Admin: 02/27/17 09:54 Dose: 10,000 unit Ferrous Sulfate (Feosol) 325 mg PO DAILY [facility] Last Admin: 02/27/17 10:05 Dose: 325 mg Meropenem 500 mg/ Sodium (Chloride) 100 mls @ 100 mls/hr IVPB Q12 [facility] Last Admin: 02/27/17 10:05 Dose: 100 mls/hr Insulin Glargine (Lantus) 20 unit SC HS [facility] Last Admin: 02/26/17 21:07 Dose: 20 units Insulin Human Regular (Novolin R) 0 unit SC ACHS [facility] PRN Reason: Protocol Last Admin: 02/27/17 12:00 Dose: Not Given Linezolid (Zyvox) 600 mg PO Q12 [facility] Last Admin: 02/27/17 10:05 Dose: 600 mg Losartan Potassium (Cozaar) 100 mg PO DAILY@1800 [facility] Last Admin: 02/26/17 17:33 Dose: 100 mg Morphine Sulfate (Morphine) 2 mg IVP Q4 PRN PRN Reason: Pain, moderate (4-7) Last Admin: 02/27/17 10:33 Dose: 2 mg Rosuvastatin Calcium (Crestor) 10 mg PO HS [facility] Last Admin: 02/26/17 21:07 Dose: Not Given - Labs Labs: 02/27/17 07:07 02/27/17 07:07 PT 11.1 SECONDS (9.7-12.2) 02/12/17 07:14 INR 1.0 02/12/17 07:14 APTT 32 SECONDS (21-34) 02/12/17 07:14 - Constitutional Appears: Non-toxic, Chronically Ill - Head Exam Head Exam: ATRAUMATIC, NORMOCEPHALIC - Eye Exam Eye Exam: EOMI, Normal appearance - ENT Exam ENT Exam: Mucous Membranes Moist - Neck Exam Neck Exam: Full ROM. absent: Lymphadenopathy - Respiratory Exam Respiratory Exam: NORMAL BREATHING PATTERN. absent: Accessory Muscle Use - Cardiovascular Exam Cardiovascular Exam: REGULAR RHYTHM. absent: Rubs - GI/Abdominal Exam GI & Abdominal Exam: Soft. absent: Tenderness - Extremities Exam Additional comments: right foot bandaged right leg edema - Neurological Exam Neurological Exam: Alert, Oriented x3 Assessment and Plan - Assessment and Plan (Free Text) Assessment: esrd/ccpd check ferritin to assess need for iv iron continue anabela wound care change picc line
[2017-02-27] MEDS: (Lantus) Insulin Glargine, Recombinant SC SCH (22:06)
[2017-02-28] MEDS ORDERED: Bismuth Subsalicylate 262 mg/15 ml Sus (240 ml) PO ONE (02:54)
[2017-02-28] MEDS: DiphenhydrAMINE 50 mg/ml Inj IVP PRN ×2 (04:09→21:10)
[2017-02-28] MEDS: (Novolin R) Insulin Human Regular 100 units/ml vial SC SCH ×4 (09:09→21:00)
[2017-02-28] MEDS: Meropenem 500 MG in Sodium Chloride 0.9% 100 ML IVPB SCH ×2 (09:48→21:04)
--- NOTE | 2017-02-28 10:27 | CP.PCM.PN ---
Subjective - Date & Time of Evaluation Date of Evaluation: 02/28/17 Time of Evaluation: 10:25 - Subjective Subjective: c/o nausea PD going well Remains on IV ABs for wound infection HTN controled No f, chills, CPs, diarrhea, HAs Objective - Vital Signs/Intake and Output Vital Signs (last 24 hours): Temp Pulse Resp BP Pulse Ox 99 F 92 H 20 117/72 97 02/28/17 08:00 02/28/17 09:46 02/28/17 08:00 02/28/17 09:47 02/28/17 08:00 Intake and Output: 02/28/17 02/28/17 06:59 18:59 Intake Total 300 Balance 300 - Medications Medications: Current Medications Acetaminophen (Tylenol 325mg Tab) 650 mg PO Q4 [facility] Last Admin: 02/28/17 09:00 Dose: Not Given Amlodipine Besylate (Norvasc) 10 mg PO DAILY [facility] Last Admin: 02/28/17 09:47 Dose: 10 mg Aspirin (Ecotrin) 81 mg PO DAILY [facility] Last Admin: 02/28/17 09:47 Dose: 81 mg Calcium Acetate (Phoslo) 2,668 mg PO TIDCC [facility] Last Admin: 02/28/17 09:56 Dose: 2,668 mg Carvedilol (Coreg) 12.5 mg PO BID [facility] Last Admin: 02/28/17 09:47 Dose: 12.5 mg Clopidogrel Bisulfate (Plavix) 75 mg PO DAILY [facility] Last Admin: 02/28/17 09:47 Dose: 75 mg Collagenase (Santyl) 1 gm EXT DAILY [facility] Last Admin: 02/27/17 10:06 Dose: Not Given Diphenhydramine HCl (Benadryl) 25 mg IVP Q4 PRN PRN Reason: Itching / Pruritus Last Admin: 02/28/17 04:09 Dose: 25 mg Epoetin Alec (Procrit) 10,000 unit SC MWF [facility] Last Admin: 02/27/17 09:54 Dose: 10,000 unit Ferrous Sulfate (Feosol) 325 mg PO DAILY [facility] Last Admin: 02/28/17 09:48 Dose: 325 mg Meropenem 500 mg/ Sodium (Chloride) 100 mls @ 100 mls/hr IVPB Q12 [facility] Last Admin: 02/28/17 09:48 Dose: 100 mls/hr Insulin Glargine (Lantus) 20 unit SC HS [facility] Last Admin: 02/27/17 22:06 Dose: 20 units Insulin Human Regular (Novolin R) 0 unit SC ACHS [facility] PRN Reason: Protocol Last Admin: 02/28/17 09:09 Dose: 2 unit Linezolid (Zyvox) 600 mg PO Q12 [facility] Last Admin: 02/28/17 09:47 Dose: 600 mg Losartan Potassium (Cozaar) 100 mg PO DAILY@1800 [facility] Last Admin: 02/27/17 17:43 Dose: 100 mg Morphine Sulfate (Morphine) 2 mg IVP Q4 PRN PRN Reason: Pain, moderate (4-7) Last Admin: 02/28/17 04:10 Dose: 2 mg Rosuvastatin Calcium (Crestor) 10 mg PO HS [facility] Last Admin: 02/27/17 22:04 Dose: Not Given - Labs Labs: 02/27/17 07:07 02/27/17 07:07 PT 11.1 SECONDS (9.7-12.2) 02/12/17 07:14 INR 1.0 02/12/17 07:14 APTT 32 SECONDS (21-34) 02/12/17 07:14 - Constitutional Appears: No Acute Distress, Chronically Ill - Head Exam Head Exam: ATRAUMATIC, NORMAL INSPECTION - Eye Exam Eye Exam: EOMI, Normal appearance - Neck Exam Neck Exam: Normal Inspection. absent: Tenderness - Respiratory Exam Respiratory Exam: Clear to Ausculation Bilateral, NORMAL BREATHING PATTERN - Cardiovascular Exam Cardiovascular Exam: REGULAR RHYTHM, +S1 - GI/Abdominal Exam GI & Abdominal Exam: Soft. absent: Tenderness - Extremities Exam Extremities Exam: Normal Inspection. absent: Tenderness - Neurological Exam Neurological Exam: Alert, CN II-XII Intact - Skin Skin Exam: Dry, Warm Assessment and Plan (1) Type 1 diabetes mellitus with diabetic nephropathy Status: Acute (2) Gangrene of right foot Status: Acute (3) End stage renal disease Status: Acute - Assessment and Plan (Free Text) Plan: IV ABs as per ID Same PD Wound care Eventual PTX
[2017-02-28] MEDS: Collagenase 250 Units/gm Ointment(30 gm) EXT SCH (11:00)
--- NOTE | 2017-02-28 12:05 | CP.PCM.PN ---
Subjective - Date & Time of Evaluation Date of Evaluation: 02/28/17 Time of Evaluation: 10:15 - Subjective Subjective: Podiatry progress note- Dr. Ordonez: 51 yo female patient seen at bedside 16 days s/p right foot Lisfranc amp with Dr. Ordonez present. Pt reports better appetite today, but does says the antibiotics are bothering her stomach somewhat. Pain is controlled. Denies f/n/v /c/sob/cp/weakness at this time. Offers no other complaints Objective - Vital Signs/Intake and Output Vital Signs (last 24 hours): Temp Pulse Resp BP Pulse Ox 99 F 92 H 20 117/72 97 02/28/17 08:00 02/28/17 09:46 02/28/17 08:00 02/28/17 09:47 02/28/17 08:00 Intake and Output: 02/28/17 02/28/17 06:59 18:59 Intake Total 300 Balance 300 - Medications Medications: Current Medications Acetaminophen (Tylenol 325mg Tab) 650 mg PO Q4 [facility] Last Admin: 02/28/17 09:00 Dose: Not Given Amlodipine Besylate (Norvasc) 10 mg PO DAILY [facility] Last Admin: 02/28/17 09:47 Dose: 10 mg Aspirin (Ecotrin) 81 mg PO DAILY [facility] Last Admin: 02/28/17 09:47 Dose: 81 mg Calcium Acetate (Phoslo) 2,668 mg PO TIDCC [facility] Last Admin: 02/28/17 09:56 Dose: 2,668 mg Carvedilol (Coreg) 12.5 mg PO BID [facility] Last Admin: 02/28/17 09:47 Dose: 12.5 mg Clopidogrel Bisulfate (Plavix) 75 mg PO DAILY [facility] Last Admin: 02/28/17 09:47 Dose: 75 mg Collagenase (Santyl) 1 gm EXT DAILY [facility] Last Admin: 02/27/17 10:06 Dose: Not Given Diphenhydramine HCl (Benadryl) 25 mg IVP Q4 PRN PRN Reason: Itching / Pruritus Last Admin: 02/28/17 04:09 Dose: 25 mg Epoetin Alec (Procrit) 10,000 unit SC MWF [facility] Last Admin: 02/27/17 09:54 Dose: 10,000 unit Ferrous Sulfate (Feosol) 325 mg PO DAILY [facility] Last Admin: 02/28/17 09:48 Dose: 325 mg Meropenem 500 mg/ Sodium (Chloride) 100 mls @ 100 mls/hr IVPB Q12 [facility] Last Admin: 02/28/17 09:48 Dose: 100 mls/hr Insulin Glargine (Lantus) 20 unit SC [facility] Last Admin: 02/27/17 22:06 Dose: 20 units Insulin Human Regular (Novolin R) 0 unit SC ACHS [facility] PRN Reason: Protocol Last Admin: 02/28/17 09:09 Dose: 2 unit Linezolid (Zyvox) 600 mg PO Q12 [facility] Last Admin: 02/28/17 09:47 Dose: 600 mg Losartan Potassium (Cozaar) 100 mg PO DAILY@1800 [facility] Last Admin: 02/27/17 17:43 Dose: 100 mg Morphine Sulfate (Morphine) 2 mg IVP Q4 PRN PRN Reason: Pain, moderate (4-7) Last Admin: 02/28/17 04:10 Dose: 2 mg Rosuvastatin Calcium (Crestor) 10 mg PO [facility] Last Admin: 02/27/17 22:04 Dose: Not Given - Labs Labs: 02/27/17 07:07 02/27/17 07:07 PT 11.1 SECONDS (9.7-12.2) 02/12/17 07:14 INR 1.0 02/12/17 07:14 APTT 32 SECONDS (21-34) 02/12/17 07:14 - Constitutional Appears: Non-toxic, No Acute Distress - Extremities Exam Extremities Exam: absent: Calf Tenderness Additional comments: RLE exam: Dressing to right foot appears c/d/i VASC- DP pulse is palpable, PT pulse non-palpable, skin temp runs warm to warm ( from proximal to distal), CFT < 3 sec to amputation flap, no pedal edema DERM- surgical incision site appears mostly well-coapted, however there is some dehisence noted to medial and lateral aspect of incision site with minimal serosanguinous drainage noted (no purulence), no fluctuance, no cellulitis, no purulence, no evidence of necrosis, there appears to be some erythema to medial aspect of flap today however no calor, distal leg temperature normal, scabbing noted over surgical incision site NEURO- pedal sensation is intact ORTHO- moderate pain to palpation of all aspects of amputation stump - Neurological Exam Neurological Exam: Alert, Awake, Oriented x3 - Psychiatric Exam Psychiatric exam: Anxious Assessment and Plan - Assessment and Plan (Free Text) Assessment: 51 y/o female patient 16days s/p right foot Lisfranc amputation
--- NOTE | 2017-02-28 12:13 | CP.PCM.PN ---
Subjective - Date & Time of Evaluation Date of Evaluation: 02/28/17 Time of Evaluation: 10:20 - Subjective Subjective: Podiatry progress note- Dr. Ordonez: 51 yo female patient seen at bedside 16 days s/p right foot Lisfranc amp with Dr. Ordonez present. Seen resting in bed, pain controlled. Reports better appetite but does says she thinks abx are upsetting her stomach. Denies f/n/v/c /sob/cp/weakness or dizziness. Objective - Vital Signs/Intake and Output Vital Signs (last 24 hours): Temp Pulse Resp BP Pulse Ox 99 F 92 H 20 117/72 97 02/28/17 08:00 02/28/17 09:46 02/28/17 08:00 02/28/17 09:47 02/28/17 08:00 Intake and Output: 02/28/17 02/28/17 06:59 18:59 Intake Total 300 Balance 300 - Medications Medications: Current Medications Acetaminophen (Tylenol 325mg Tab) 650 mg PO Q4 [facility] Last Admin: 02/28/17 09:00 Dose: Not Given Amlodipine Besylate (Norvasc) 10 mg PO DAILY [facility] Last Admin: 02/28/17 09:47 Dose: 10 mg Aspirin (Ecotrin) 81 mg PO DAILY [facility] Last Admin: 02/28/17 09:47 Dose: 81 mg Calcium Acetate (Phoslo) 2,668 mg PO TIDCC [facility] Last Admin: 02/28/17 09:56 Dose: 2,668 mg Carvedilol (Coreg) 12.5 mg PO BID [facility] Last Admin: 02/28/17 09:47 Dose: 12.5 mg Clopidogrel Bisulfate (Plavix) 75 mg PO DAILY [facility] Last Admin: 02/28/17 09:47 Dose: 75 mg Collagenase (Santyl) 1 gm EXT DAILY [facility] Last Admin: 02/27/17 10:06 Dose: Not Given Diphenhydramine HCl (Benadryl) 25 mg IVP Q4 PRN PRN Reason: Itching / Pruritus Last Admin: 02/28/17 04:09 Dose: 25 mg Epoetin Alec (Procrit) 10,000 unit SC MWF [facility] Last Admin: 02/27/17 09:54 Dose: 10,000 unit Ferrous Sulfate (Feosol) 325 mg PO DAILY [facility] Last Admin: 02/28/17 09:48 Dose: 325 mg Meropenem 500 mg/ Sodium (Chloride) 100 mls @ 100 mls/hr IVPB Q12 [facility] Last Admin: 02/28/17 09:48 Dose: 100 mls/hr Insulin Glargine (Lantus) 20 unit SC [facility] Last Admin: 02/27/17 22:06 Dose: 20 units Insulin Human Regular (Novolin R) 0 unit SC ACHS [facility] PRN Reason: Protocol Last Admin: 02/28/17 09:09 Dose: 2 unit Linezolid (Zyvox) 600 mg PO Q12 [facility] Last Admin: 02/28/17 09:47 Dose: 600 mg Losartan Potassium (Cozaar) 100 mg PO DAILY@1800 [facility] Last Admin: 02/27/17 17:43 Dose: 100 mg Morphine Sulfate (Morphine) 2 mg IVP Q4 PRN PRN Reason: Pain, moderate (4-7) Last Admin: 02/28/17 04:10 Dose: 2 mg Rosuvastatin Calcium (Crestor) 10 mg PO [facility] Last Admin: 02/27/17 22:04 Dose: Not Given - Labs Labs: 02/27/17 07:07 02/27/17 07:07 PT 11.1 SECONDS (9.7-12.2) 02/12/17 07:14 INR 1.0 02/12/17 07:14 APTT 32 SECONDS (21-34) 02/12/17 07:14 - Constitutional Appears: Non-toxic, No Acute Distress - Extremities Exam Additional comments: RLE exam: Dressing to right foot appears c/d/i VASC- DP pulse is palpable, PT pulse non-palpable, skin temp runs warm to warm ( from proximal to distal), CFT < 3 sec to amputation flap, no pedal edema DERM- surgical incision site appears mostly well-coapted, however there is some dehisence noted to medial and latera aspect of wound today with slight serosanguinous drainage, all sutures are intact, no malodor, no fluctuance, no cellulitis, no purulence, no evidence of necrosis, there appears to be some erythema to medial aspect of flap today however no calor, distal leg temperature normal, scabbing noted over surgical incision site NEURO- pedal sensation is intact ORTHO- moderate pain to palpation of all aspects of amputation stump - Neurological Exam Neurological Exam: Alert, Awake - Psychiatric Exam Psychiatric exam: Anxious Assessment and Plan - Assessment and Plan (Free Text) Assessment: 51 y/o female patient 16days s/p right foot Lisfranc amputation Plan: Pt S&E at bedside w/ Dr. Ordonez present Chart,labs, vitals reviewed: afebrile, WBC 11.5 c/w IV abx as per ID Wound cx (02/27): pending 3 sutures removed from medial aspect of incision site with sterile suture kit Wound flushed copiously with peroxide Packed with betadine soaked gauze, dressed with DSD c/w strict NWB to bilateral lower extremities c/w strengthening exercises in bed Had a lengthy discussion with pt that although flap is holding it may indeed fail and she may still require a below knee amputation. We will do our best to salvage this limb. awaiting auth for [place] Prognosis for limb salvage is guarded but stable Will follow closely.
[2017-02-28] MEDS: Saccharomyces Boulardi 250 mg Cap PO SCH (19:56)
[2017-02-28] MEDS: Vitamins A & D Oint UD Foilpak TOP PRN (19:56)
[2017-02-28] MEDS: (Lantus) Insulin Glargine, Recombinant SC SCH ×2 (21:00→22:00)
[2017-03-01] MEDS: DiphenhydrAMINE 50 mg/ml Inj IVP PRN ×2 (07:23→22:22)
[2017-03-01] MEDS: (Novolin R) Insulin Human Regular 100 units/ml vial SC SCH ×4 (07:47→22:14)
[2017-03-01] MEDS: Saccharomyces Boulardi 250 mg Cap PO SCH (10:00)
[2017-03-01] MEDS: EPOETIN ALFA 10,000 UNIT/ML ML SC SCH (10:00)
[2017-03-01] MEDS: Meropenem 500 MG in Sodium Chloride 0.9% 100 ML IVPB SCH ×2 (10:06→22:24)
[2017-03-01] MEDS: Acyclovir 5% Oint (15 gm) EXT SCH ×5 (10:08→22:15)
[2017-03-01] MEDS: Collagenase 250 Units/gm Ointment(30 gm) EXT SCH (10:12)
--- NOTE | 2017-03-01 11:29 | CP.PCM.PN ---
Subjective - Date & Time of Evaluation Date of Evaluation: 03/01/17 Time of Evaluation: 09:45 - Subjective Subjective: Podiatry progress note- Dr. Ordonez: 51 yo female patient seen at bedside 17 days s/p right foot Lisfranc amp. Pt is seen resting in bed at time of visit. Says florastor was started yesterday, but still experiencing some stomach upset and loose stools. Says pain to foot is controlled, reports better appetite. Denies f/n/v/c/sob/cp/weakness/dizziness today. Objective - Vital Signs/Intake and Output Vital Signs (last 24 hours): Temp Pulse Resp BP Pulse Ox 98.1 F 84 18 139/74 98 03/01/17 08:05 03/01/17 08:05 03/01/17 08:05 03/01/17 09:59 03/01/17 08:05 Intake and Output: 03/01/17 03/01/17 06:59 18:59 Intake Total 360 Balance 360 - Medications Medications: Current Medications Acetaminophen (Tylenol 325mg Tab) 650 mg PO Q4 [facility] Last Admin: 03/01/17 08:57 Dose: Not Given Acyclovir (Zovirax 5% Oint) 0 gm EXT Q3H [facility] Last Admin: 03/01/17 10:08 Dose: 1 applic Amlodipine Besylate (Norvasc) 10 mg PO DAILY [facility] Last Admin: 03/01/17 10:00 Dose: 10 mg Aspirin (Ecotrin) 81 mg PO DAILY [facility] Last Admin: 03/01/17 10:00 Dose: 81 mg Calcium Acetate (Phoslo) 2,668 mg PO TIDCC [facility] Last Admin: 03/01/17 08:57 Dose: Not Given Carvedilol (Coreg) 12.5 mg PO BID [facility] Last Admin: 03/01/17 09:59 Dose: 12.5 mg Clopidogrel Bisulfate (Plavix) 75 mg PO DAILY [facility] Last Admin: 03/01/17 10:00 Dose: 75 mg Collagenase (Santyl) 1 gm EXT DAILY [facility] Last Admin: 03/01/17 10:12 Dose: Not Given Diphenhydramine HCl (Benadryl) 25 mg IVP Q4 PRN PRN Reason: Itching / Pruritus Last Admin: 03/01/17 07:23 Dose: 25 mg Epoetin Alec (Procrit) 10,000 unit SC MWF [facility] Last Admin: 03/01/17 10:00 Dose: 10,000 unit Ferrous Sulfate (Feosol) 325 mg PO DAILY [facility] Last Admin: 03/01/17 10:00 Dose: 325 mg Meropenem 500 mg/ Sodium (Chloride) 100 mls @ 100 mls/hr IVPB Q12 [facility] Last Admin: 03/01/17 10:06 Dose: 100 mls/hr Insulin Glargine (Lantus) 20 unit SC HS [facility] Last Admin: 02/28/17 22:00 Dose: 20 units Insulin Human Regular (Novolin R) 0 unit SC ACHS [facility] PRN Reason: Protocol Last Admin: 03/01/17 07:47 Dose: Not Given Linezolid (Zyvox) 600 mg PO Q12 [facility] Last Admin: 03/01/17 10:08 Dose: 600 mg Losartan Potassium (Cozaar) 100 mg PO DAILY@1800 [facility] Last Admin: 02/28/17 18:40 Dose: Not Given Morphine Sulfate (Morphine) 2 mg IVP Q4 PRN PRN Reason: Pain, moderate (4-7) Last Admin: 03/01/17 07:23 Dose: 2 mg Rosuvastatin Calcium (Crestor) 10 mg PO HS [facility] Last Admin: 02/28/17 21:00 Dose: Not Given Saccharomyces Boulardii (Florastor) 250 mg PO DAILY [facility] Last Admin: 03/01/17 10:00 Dose: 250 mg Vitamin A (Vitamin A & D Oint Ud Foilpak) 1 ea TOP BID PRN PRN Reason: Dry skin Last Admin: 02/28/17 19:56 Dose: 1 ea - Labs Labs: 02/27/17 07:07 02/27/17 07:07 PT 11.1 SECONDS (9.7-12.2) 02/12/17 07:14 INR 1.0 02/12/17 07:14 APTT 32 SECONDS (21-34) 02/12/17 07:14 - Constitutional Appears: Non-toxic, No Acute Distress - Extremities Exam Extremities Exam: absent: Calf Tenderness Additional comments: RLE exam: Dressing to right foot appears c/d/i VASC- DP pulse is palpable, PT pulse non-palpable, skin temp runs warm to warm ( from proximal to distal), CFT < 3 sec to amputation flap, no pedal edema DERM- surgical incision site appears mostly well-coapted, however there is some dehisence noted to medial and lateral aspect of wound with slight serous drainage, no malodor, no fluctuance, no cellulitis, no purulence, no evidence of necrosis, there appears to be some erythema to medial aspect of flap today however no calor, distal leg temperature normal, scabbing noted over surgical incision site NEURO- pedal sensation is intact ORTHO- moderate pain to palpation of all aspects of amputation stump - Neurological Exam Neurological Exam: Alert, Awake, Oriented x3 - Psychiatric Exam Psychiatric exam: Normal Affect, Normal Mood Assessment and Plan - Assessment and Plan (Free Text) Assessment: 51 y/o female patient 17 days s/p right foot Lisfranc amputation Plan: Pt S&E at bedside d/w Dr. Ordonez Chart,labs, vitals reviewed: afebrile, WBC 11.5 c/w IV abx as per ID Wound cx (02/27): no growth after 24 hrs (prelim) Wound flushed copiously with peroxide Packed with betadine soaked gauze, dressed with DSD c/w strict NWB to bilateral lower extremities c/w strengthening exercises in bed awaiting auth for [place] Prognosis for limb salvage is guarded but stable Will follow closely.
--- NOTE | 2017-03-01 14:07 | CP.PCM.PN ---
Subjective - Date & Time of Evaluation Date of Evaluation: 03/01/17 Time of Evaluation: 14:05 - Subjective Subjective: c/o loose BMs since last PM PD going well Wounds seen by surgery HTN controlled no f, c, n, v, HAs, CPs Objective - Vital Signs/Intake and Output Vital Signs (last 24 hours): Temp Pulse Resp BP Pulse Ox 98.1 F 84 18 139/74 98 03/01/17 08:05 03/01/17 08:05 03/01/17 08:05 03/01/17 09:59 03/01/17 08:05 Intake and Output: 03/01/17 03/01/17 06:59 18:59 Intake Total 360 Balance 360 - Medications Medications: Current Medications Acetaminophen (Tylenol 325mg Tab) 650 mg PO Q4 [facility] Last Admin: 03/01/17 12:03 Dose: Not Given Acyclovir (Zovirax 5% Oint) 0 gm EXT Q3H [facility] Last Admin: 03/01/17 13:53 Dose: Not Given Amlodipine Besylate (Norvasc) 10 mg PO DAILY [facility] Last Admin: 03/01/17 10:00 Dose: 10 mg Aspirin (Ecotrin) 81 mg PO DAILY [facility] Last Admin: 03/01/17 10:00 Dose: 81 mg Calcium Acetate (Phoslo) 2,668 mg PO TIDCC [facility] Last Admin: 03/01/17 12:50 Dose: 2,668 mg Carvedilol (Coreg) 12.5 mg PO BID [facility] Last Admin: 03/01/17 09:59 Dose: 12.5 mg Clopidogrel Bisulfate (Plavix) 75 mg PO DAILY [facility] Last Admin: 03/01/17 10:00 Dose: 75 mg Collagenase (Santyl) 1 gm EXT DAILY [facility] Last Admin: 03/01/17 10:12 Dose: Not Given Diphenhydramine HCl (Benadryl) 25 mg IVP Q4 PRN PRN Reason: Itching / Pruritus Last Admin: 03/01/17 07:23 Dose: 25 mg Epoetin Alec (Procrit) 10,000 unit SC MWF [facility] Last Admin: 03/01/17 10:00 Dose: 10,000 unit Ferrous Sulfate (Feosol) 325 mg PO DAILY [facility] Last Admin: 03/01/17 10:00 Dose: 325 mg Meropenem 500 mg/ Sodium (Chloride) 100 mls @ 100 mls/hr IVPB Q12 [facility] Last Admin: 03/01/17 10:06 Dose: 100 mls/hr Insulin Glargine (Lantus) 20 unit SC [facility] Last Admin: 02/28/17 22:00 Dose: 20 units Insulin Human Regular (Novolin R) 0 unit SC ACHS [facility] PRN Reason: Protocol Last Admin: 03/01/17 12:01 Dose: Not Given Linezolid (Zyvox) 600 mg PO Q12 [facility] Last Admin: 03/01/17 10:08 Dose: 600 mg Losartan Potassium (Cozaar) 100 mg PO DAILY@1800 [facility] Last Admin: 02/28/17 18:40 Dose: Not Given Morphine Sulfate (Morphine) 2 mg IVP Q4 PRN PRN Reason: Pain, moderate (4-7) Last Admin: 03/01/17 07:23 Dose: 2 mg Rosuvastatin Calcium (Crestor) 10 mg PO [facility] Last Admin: 02/28/17 21:00 Dose: Not Given Saccharomyces Boulardii (Florastor) 250 mg PO DAILY [facility] Last Admin: 03/01/17 10:00 Dose: 250 mg Vitamin A (Vitamin A & D Oint Ud Foilpak) 1 ea TOP BID PRN PRN Reason: Dry skin Last Admin: 02/28/17 19:56 Dose: 1 ea - Labs Labs: 02/27/17 07:07 02/27/17 07:07 PT 11.1 SECONDS (9.7-12.2) 02/12/17 07:14 INR 1.0 02/12/17 07:14 APTT 32 SECONDS (21-34) 02/12/17 07:14 - Constitutional Appears: No Acute Distress, Agitated, Chronically Ill - Head Exam Head Exam: ATRAUMATIC, NORMAL INSPECTION - Eye Exam Eye Exam: EOMI, Normal appearance - Neck Exam Neck Exam: Normal Inspection. absent: Tenderness - Cardiovascular Exam Cardiovascular Exam: REGULAR RHYTHM, +S1 - GI/Abdominal Exam GI & Abdominal Exam: Soft. absent: Tenderness - Neurological Exam Neurological Exam: Alert, CN II-XII Intact - Skin Skin Exam: Dry, Warm Assessment and Plan (1) Type 1 diabetes mellitus with diabetic nephropathy Status: Acute (2) Gangrene of right foot Status: Acute (3) End stage renal disease Status: Acute - Assessment and Plan (Free Text) Plan: Same PD IV ABs as per ID Recheck TSAT Change binders to renvela as Ca increased Wound care
--- NOTE | 2017-03-01 14:16 | CP.PCM.PN ---
Subjective - Date & Time of Evaluation Date of Evaluation: 03/01/17 Time of Evaluation: 09:00 - Subjective Subjective: STOOL C DIFF PENDING Objective - Vital Signs/Intake and Output Vital Signs (last 24 hours): Temp Pulse Resp BP Pulse Ox 98.1 F 84 18 139/74 98 03/01/17 08:05 03/01/17 08:05 03/01/17 08:05 03/01/17 09:59 03/01/17 08:05 Intake and Output: 03/01/17 03/01/17 06:59 18:59 Intake Total 360 Balance 360 - Medications Medications: Current Medications Acetaminophen (Tylenol 325mg Tab) 650 mg PO Q4 [facility] Last Admin: 03/01/17 12:03 Dose: Not Given Acyclovir (Zovirax 5% Oint) 0 gm EXT Q3H [facility] Last Admin: 03/01/17 13:53 Dose: Not Given Amlodipine Besylate (Norvasc) 10 mg PO DAILY [facility] Last Admin: 03/01/17 10:00 Dose: 10 mg Aspirin (Ecotrin) 81 mg PO DAILY [facility] Last Admin: 03/01/17 10:00 Dose: 81 mg Carvedilol (Coreg) 12.5 mg PO BID [facility] Last Admin: 03/01/17 09:59 Dose: 12.5 mg Clopidogrel Bisulfate (Plavix) 75 mg PO DAILY [facility] Last Admin: 03/01/17 10:00 Dose: 75 mg Collagenase (Santyl) 1 gm EXT DAILY [facility] Last Admin: 03/01/17 10:12 Dose: Not Given Diphenhydramine HCl (Benadryl) 25 mg IVP Q4 PRN PRN Reason: Itching / Pruritus Last Admin: 03/01/17 07:23 Dose: 25 mg Epoetin Alec (Procrit) 10,000 unit SC MWF [facility] Last Admin: 03/01/17 10:00 Dose: 10,000 unit Ferrous Sulfate (Feosol) 325 mg PO DAILY [facility] Last Admin: 03/01/17 10:00 Dose: 325 mg Meropenem 500 mg/ Sodium (Chloride) 100 mls @ 100 mls/hr IVPB Q12 [facility] Last Admin: 03/01/17 10:06 Dose: 100 mls/hr Insulin Glargine (Lantus) 20 unit SC HS [facility] Last Admin: 02/28/17 22:00 Dose: 20 units Insulin Human Regular (Novolin R) 0 unit SC ACHS [facility] PRN Reason: Protocol Last Admin: 03/01/17 12:01 Dose: Not Given Linezolid (Zyvox) 600 mg PO Q12 [facility] Last Admin: 03/01/17 10:08 Dose: 600 mg Losartan Potassium (Cozaar) 100 mg PO DAILY@1800 [facility] Last Admin: 02/28/17 18:40 Dose: Not Given Morphine Sulfate (Morphine) 2 mg IVP Q4 PRN PRN Reason: Pain, moderate (4-7) Last Admin: 03/01/17 07:23 Dose: 2 mg Rosuvastatin Calcium (Crestor) 10 mg PO HS [facility] Last Admin: 02/28/17 21:00 Dose: Not Given Saccharomyces Boulardii (Florastor) 250 mg PO DAILY [facility] Last Admin: 03/01/17 10:00 Dose: 250 mg Sevelamer Carbonate (Renvela) 1.6 gm PO TIDCC [facility] Vitamin A (Vitamin A & D Oint Ud Foilpak) 1 ea TOP BID PRN PRN Reason: Dry skin Last Admin: 02/28/17 19:56 Dose: 1 ea - Labs Labs: 02/27/17 07:07 02/27/17 07:07 PT 11.1 SECONDS (9.7-12.2) 02/12/17 07:14 INR 1.0 02/12/17 07:14 APTT 32 SECONDS (21-34) 02/12/17 07:14 - Constitutional Appears: Non-toxic, Chronically Ill - Head Exam Head Exam: NORMOCEPHALIC - Eye Exam Eye Exam: PERRL - ENT Exam ENT Exam: Mucous Membranes Dry - Neck Exam Neck Exam: absent: Lymphadenopathy - Respiratory Exam Respiratory Exam: Decreased Breath Sounds - Cardiovascular Exam Cardiovascular Exam: REGULAR RHYTHM - GI/Abdominal Exam GI & Abdominal Exam: Distended Assessment and Plan (1) Gangrene of right foot Status: Acute (2) Chronic anemia Status: Acute (3) Chronic congestive heart failure Status: Acute (4) Diabetes mellitus Status: Acute (5) ESRD on peritoneal dialysis Status: Acute
[2017-03-01] MEDS: Sevelamer Carb 0.8 gm/Packet PO SCH (18:51)
--- NOTE | 2017-03-01 21:50 | CP.PCM.PN ---
Subjective - Date & Time of Evaluation Date of Evaluation: 03/01/17 Time of Evaluation: 21:50 - Subjective Subjective: The right foot wound is still not looking good. 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 Seen by infectious diseases. Patient will need a further management. We will follow-up with the senior dynamics crm developer. Continue the current treatment. Objective - Vital Signs/Intake and Output Vital Signs (last 24 hours): Temp Pulse Resp BP Pulse Ox 98.0 F 70 20 133/71 95 03/01/17 15:00 03/01/17 15:00 03/01/17 15:00 03/01/17 18:50 03/01/17 15:00 Intake and Output: 03/01/17 03/02/17 18:59 06:59 Intake Total 100 Balance 100 - Medications Medications: Current Medications Acetaminophen (Tylenol 325mg Tab) [address] [facility] Last Admin: 03/01/17 16:39 Dose: Not Given Acyclovir (Zovirax 5% Oint) [address] [facility] Last Admin: 03/01/17 18:51 Dose: Not Given Amlodipine Besylate (Norvasc) [address] [facility] Last Admin: 03/01/17 10:00 Dose: 10 mg Aspirin (Ecotrin) [address] [facility] Last Admin: 03/01/17 10:00 Dose: 81 mg Carvedilol (Coreg) 12.[address] [facility] Last Admin: 03/01/17 18:50 Dose: 12.5 mg Clopidogrel Bisulfate (Plavix) [address] [facility] Last Admin: 03/01/17 10:00 Dose: 75 mg Collagenase (Santyl) [address] [facility] Last Admin: 03/01/17 10:12 Dose: Not Given Diphenhydramine HCl (Benadryl) 25 mg IVP Q4 PRN PRN Reason: Itching / Pruritus Last Admin: 03/01/17 07:23 Dose: 25 mg Epoetin Laec (Procrit) 10,[address] [facility] Last Admin: 03/01/17 10:00 Dose: 10,000 unit Ferrous Sulfate (Feosol) [address] [facility] Last Admin: 03/01/17 10:00 Dose: 325 mg Meropenem 500 mg/ Sodium (Chloride) 100 mls @ 100 mls/hr IVPB Q12 [facility] Last Admin: 03/01/17 10:06 Dose: 100 mls/hr Insulin Glargine (Lantus) [address] [facility] Last Admin: 02/28/17 22:00 Dose: 20 units Insulin Human Regular (Novolin R) 0 unit SC ACHS [facility] PRN Reason: Protocol Last Admin: 03/01/17 17:16 Dose: Not Given Linezolid (Zyvox) [address] [facility] Last Admin: 03/01/17 10:08 Dose: 600 mg Losartan Potassium (Cozaar) 100 mg PO DAILY@1800 [facility] Last Admin: 03/01/17 18:50 Dose: 100 mg Morphine Sulfate (Morphine) 2 mg IVP Q4 PRN PRN Reason: Pain, moderate (4-7) Last Admin: 03/01/17 07:23 Dose: 2 mg Rosuvastatin Calcium (Crestor) [address] [facility] Last Admin: 02/28/17 21:00 Dose: Not Given Saccharomyces Boulardii (Florastor) [address] [facility] Last Admin: 03/01/17 10:00 Dose: 250 mg Sevelamer Carbonate (Renvela) 1.[address] [facility] Last Admin: 03/01/17 18:51 Dose: 1.6 gm Vitamin A (Vitamin A & D Oint Ud Foilpak) 1 ea TOP BID PRN PRN Reason: Dry skin Last Admin: 02/28/17 19:56 Dose: 1 ea - Labs Labs: 02/27/17 07:07 02/27/17 07:07 PT 11.1 SECONDS (9.7-12.2) 02/12/17 07:14 INR 1.0 02/12/17 07:14 APTT 32 SECONDS (21-34) 02/12/17 07:14
[2017-03-01] MEDS: (Lantus) Insulin Glargine, Recombinant SC SCH (22:21)
[2017-03-02] MEDS: Acyclovir 5% Oint (15 gm) EXT SCH ×7 (02:00→20:15)
[2017-03-02] MEDS: Morphine 4 MG/ML VIAL IVP PRN ×3 (03:05→21:52)
[2017-03-02] MEDS: DiphenhydrAMINE 50 mg/ml Inj IVP PRN ×3 (03:05→21:53)
[2017-03-02] MEDS: (Novolin R) Insulin Human Regular 100 units/ml vial SC SCH ×4 (08:00→22:00)
[2017-03-02] MEDS: Sevelamer Carb 0.8 gm/Packet PO SCH ×3 (08:30→17:39)
[2017-03-02 08:43] LABS: BILIRUBIN,TOTAL 0.4 mg/dL (0.2-1.3)
[2017-03-02 08:44] LABS: ALB/GLOB RATIO 0.8 (1.0-2.1); PHOSPHOROUS 4.2 mg/dL (2.5-4.5); TOTAL PROTEIN 6.1 g/dL (6.3-8.3)
[2017-03-02 08:45] LABS: CALCIUM 10.4 mg/dl (8.6-10.4)
--- NOTE | 2017-03-02 09:28 | CP.PCM.PN ---
Subjective - Date & Time of Evaluation Date of Evaluation: 03/02/17 Time of Evaluation: 09:30 - Subjective Subjective: afebrile bp stable much more comfortable as compared to last weekend less foot pain calcium 10.4 phoslo d/c pd in progress ROS No fever no chest pain,sob no abd pain nausea vomiting diarrhea less foot pain Objective - Vital Signs/Intake and Output Vital Signs (last 24 hours): Temp Pulse Resp BP Pulse Ox 98.3 F 87 18 126/58 L 95 03/01/17 23:32 03/01/17 23:32 03/01/17 23:32 03/01/17 23:32 03/01/17 23:32 - Medications Medications: Current Medications Acetaminophen (Tylenol 325mg Tab) 650 mg PO Q4 [facility] Last Admin: 03/02/17 04:05 Dose: Not Given Acyclovir (Zovirax 5% Oint) 0 gm EXT Q3H [facility] Last Admin: 03/02/17 05:16 Dose: Not Given Amlodipine Besylate (Norvasc) 10 mg PO DAILY [facility] Last Admin: 03/02/17 09:14 Dose: 10 mg Aspirin (Ecotrin) 81 mg PO DAILY [facility] Last Admin: 03/01/17 10:00 Dose: 81 mg Carvedilol (Coreg) 12.5 mg PO BID [facility] Last Admin: 03/01/17 18:50 Dose: 12.5 mg Clopidogrel Bisulfate (Plavix) 75 mg PO DAILY [facility] Last Admin: 03/02/17 09:14 Dose: 75 mg Collagenase (Santyl) 1 gm EXT DAILY [facility] Last Admin: 03/01/17 10:12 Dose: Not Given Diphenhydramine HCl (Benadryl) 25 mg IVP Q4 PRN PRN Reason: Itching / Pruritus Last Admin: 03/02/17 09:17 Dose: 25 mg Epoetin Alec (Procrit) 10,000 unit SC MWF [facility] Last Admin: 03/01/17 10:00 Dose: 10,000 unit Ferrous Sulfate (Feosol) 325 mg PO DAILY [facility] Last Admin: 03/02/17 09:15 Dose: 325 mg Meropenem 500 mg/ Sodium (Chloride) 100 mls @ 100 mls/hr IVPB Q12 [facility] Last Admin: 03/01/17 22:24 Dose: 100 mls/hr Insulin Glargine (Lantus) 20 unit SC HS [facility] Last Admin: 03/01/17 22:21 Dose: 20 units Insulin Human Regular (Novolin R) 0 unit SC ACHS [facility] PRN Reason: Protocol Last Admin: 03/02/17 08:00 Dose: Not Given Linezolid (Zyvox) 600 mg PO Q12 [facility] Last Admin: 03/01/17 22:22 Dose: 600 mg Losartan Potassium (Cozaar) 100 mg PO DAILY@1800 [facility] Last Admin: 03/01/17 18:50 Dose: 100 mg Morphine Sulfate (Morphine) 2 mg IVP Q4H PRN PRN Reason: Pain, moderate (4-7) Last Admin: 03/02/17 09:15 Dose: 2 mg Rosuvastatin Calcium (Crestor) 10 mg PO [facility] Last Admin: 03/01/17 22:22 Dose: 10 mg Saccharomyces Boulardii (Florastor) 250 mg PO DAILY [facility] Last Admin: 03/01/17 10:00 Dose: 250 mg Sevelamer Carbonate (Renvela) 1.6 gm PO TIDCC [facility] Last Admin: 03/01/17 18:51 Dose: 1.6 gm Vitamin A (Vitamin A & D Oint Ud Foilpak) 1 ea TOP BID PRN PRN Reason: Dry skin Last Admin: 02/28/17 19:56 Dose: 1 ea - Labs Labs: 02/27/17 07:07 03/02/17 08:05 PT 11.1 SECONDS (9.7-12.2) 02/12/17 07:14 INR 1.0 02/12/17 07:14 APTT 32 SECONDS (21-34) 02/12/17 07:14 - Constitutional Appears: No Acute Distress - Eye Exam Eye Exam: absent: Conjunctival injection - ENT Exam ENT Exam: Mucous Membranes Moist - Respiratory Exam Respiratory Exam: Clear to Ausculation Bilateral - Cardiovascular Exam Cardiovascular Exam: REGULAR RHYTHM - GI/Abdominal Exam GI & Abdominal Exam: Distended, Soft. absent: Tenderness, Rebound - Extremities Exam Extremities Exam: absent: Calf Tenderness Additional comments: rt foot bandaged - Psychiatric Exam Psychiatric exam: Normal Affect - Skin Skin Exam: Dry Assessment and Plan (1) Gangrene of right foot Status: Acute (2) Type 1 diabetes mellitus with diabetic nephropathy Status: Acute (3) Bacteremia due to coagulase-negative Staphylococcus Status: Acute (4) Diabetes mellitus Status: Acute (5) ESRD on peritoneal dialysis Status: Acute - Assessment and Plan (Free Text) Plan: continue present pd rx follow surical recommendations
[2017-03-02] MEDS: Saccharomyces Boulardi 250 mg Cap PO SCH (09:36)
[2017-03-02] MEDS: Meropenem 500 MG in Sodium Chloride 0.9% 100 ML IVPB SCH ×2 (09:38→21:52)
[2017-03-02] MEDS: Collagenase 250 Units/gm Ointment(30 gm) EXT SCH (10:15)
--- NOTE | 2017-03-02 16:53 | CP.PCM.PN ---
Subjective - Date & Time of Evaluation Date of Evaluation: 03/02/17 Time of Evaluation: 12:15 - Subjective Subjective: Podiatry progress note- Dr. Ordonez: 51 yo female patient seen at bedside 18 days s/p right foot Lisfranc amp. Says pain to foot is controlled, reports better appetite. Denies f/n/v/c/sob/cp/ weakness/dizziness today. Objective - Vital Signs/Intake and Output Vital Signs (last 24 hours): Temp Pulse Resp BP Pulse Ox 97.9 F 107 H 20 126/64 94 L 03/02/17 09:50 03/02/17 09:50 03/02/17 09:50 03/02/17 09:50 03/02/17 09:50 - Medications Medications: Current Medications Acyclovir (Zovirax 5% Oint) 0 gm EXT Q3H [facility] Last Admin: 03/02/17 11:30 Dose: 1 applic Amlodipine Besylate (Norvasc) 10 mg PO DAILY [facility] Last Admin: 03/02/17 09:14 Dose: 10 mg Aspirin (Ecotrin) 81 mg PO DAILY [facility] Last Admin: 03/02/17 09:35 Dose: 81 mg Carvedilol (Coreg) 12.5 mg PO BID [facility] Last Admin: 03/02/17 09:35 Dose: 12.5 mg Clopidogrel Bisulfate (Plavix) 75 mg PO DAILY [facility] Last Admin: 03/02/17 09:14 Dose: 75 mg Collagenase (Santyl) 1 gm EXT DAILY [facility] Last Admin: 03/02/17 10:15 Dose: Not Given Diphenhydramine HCl (Benadryl) 25 mg IVP Q4 PRN PRN Reason: Itching / Pruritus Last Admin: 03/02/17 09:17 Dose: 25 mg Epoetin Alec (Procrit) 10,000 unit SC MWF [facility] Last Admin: 03/01/17 10:00 Dose: 10,000 unit Ferrous Sulfate (Feosol) 325 mg PO DAILY [facility] Last Admin: 03/02/17 09:15 Dose: 325 mg Meropenem 500 mg/ Sodium (Chloride) 100 mls @ 100 mls/hr IVPB Q12 [facility] Last Admin: 03/02/17 09:38 Dose: 100 mls/hr Insulin Glargine (Lantus) 20 unit SC HS [facility] Last Admin: 03/01/17 22:21 Dose: 20 units Insulin Human Regular (Novolin R) 0 unit SC ACHS [facility] PRN Reason: Protocol Last Admin: 03/02/17 12:00 Dose: Not Given Linezolid (Zyvox) 600 mg PO Q12 [facility] Last Admin: 03/02/17 09:35 Dose: 600 mg Losartan Potassium (Cozaar) 100 mg PO DAILY@1800 [facility] Last Admin: 03/01/17 18:50 Dose: 100 mg Morphine Sulfate (Morphine) 2 mg IVP Q4H PRN PRN Reason: Pain, moderate (4-7) Last Admin: 03/02/17 09:15 Dose: 2 mg Rosuvastatin Calcium (Crestor) 10 mg PO [facility] Last Admin: 03/01/17 22:22 Dose: 10 mg Saccharomyces Boulardii (Florastor) 250 mg PO DAILY [facility] Last Admin: 03/02/17 09:36 Dose: 250 mg Sevelamer Carbonate (Renvela) 1.6 gm PO TIDCC [facility] Last Admin: 03/02/17 12:15 Dose: 1.6 gm Vitamin A (Vitamin A & D Oint Ud Foilpak) 1 ea TOP BID PRN PRN Reason: Dry skin Last Admin: 02/28/17 19:56 Dose: 1 ea - Labs Labs: 02/27/17 07:07 03/02/17 08:05 PT 11.1 SECONDS (9.7-12.2) 02/12/17 07:14 INR 1.0 02/12/17 07:14 APTT 32 SECONDS (21-34) 02/12/17 07:14 - Constitutional Appears: Well, Non-toxic, No Acute Distress - Extremities Exam Additional comments: RLE exam: Dressing to right foot appears c/d/i VASC- DP pulse is palpable, PT pulse non-palpable, skin temp runs warm to warm ( from proximal to distal), CFT < 3 sec to amputation flap, no pedal edema DERM- surgical incision site appears mostly well-coapted, however there is some dehisence noted to medial and lateral aspect of wound with slight serous drainage, no malodor, no fluctuance, no cellulitis, no purulence, no evidence of necrosis, distal leg temperature normal, scabbing noted over surgical incision site NEURO- pedal sensation is intact ORTHO- moderate pain to palpation of all aspects of amputation stump - Neurological Exam Neurological Exam: Alert, Awake, Oriented x3 - Psychiatric Exam Psychiatric exam: Normal Affect, Normal Mood Assessment and Plan - Assessment and Plan (Free Text) Assessment: 51 y/o female patient 18 days s/p right foot Lisfranc amputation Plan: Pt S&E at bedside d/w Dr. Ordonez Chart,labs, vitals reviewed c/w IV abx as per ID Wound cx (02/27): no growth after 24 hrs (prelim) Wound flushed copiously with peroxide Packed with betadine soaked gauze, dressed with DSD c/w strict NWB to bilateral lower extremities c/w strengthening exercises in bed awaiting auth for [place] Prognosis for limb salvage is guarded but stable Will follow closely.
--- NOTE | 2017-03-02 20:40 | CP.PCM.PN ---
Subjective - Date & Time of Evaluation Date of Evaluation: 03/02/17 Time of Evaluation: 20:38 - Subjective Subjective: pt less pain now left heel will need protection will need PT to continue high risk for ulcers sugar ok no fever no diarrhea labs noted will change picc PT sugar control Podiatry and ID f/u about antibiotic and plan of ambulation Objective - Vital Signs/Intake and Output Vital Signs (last 24 hours): Temp Pulse Resp BP Pulse Ox 98 F 80 20 128/75 96 03/02/17 15:00 03/02/17 17:37 03/02/17 15:00 03/02/17 17:39 03/02/17 15:00 - Medications Medications: Current Medications Acyclovir (Zovirax 5% Oint) 0 gm EXT Q3H [facility] Last Admin: 03/02/17 17:39 Dose: 1 applic Amlodipine Besylate (Norvasc) 10 mg PO DAILY [facility] Last Admin: 03/02/17 09:14 Dose: 10 mg Aspirin (Ecotrin) 81 mg PO DAILY [facility] Last Admin: 03/02/17 09:35 Dose: 81 mg Carvedilol (Coreg) 12.5 mg PO BID [facility] Last Admin: 03/02/17 17:39 Dose: 12.5 mg Clopidogrel Bisulfate (Plavix) 75 mg PO DAILY [facility] Last Admin: 03/02/17 09:14 Dose: 75 mg Collagenase (Santyl) 1 gm EXT DAILY [facility] Last Admin: 03/02/17 10:15 Dose: Not Given Diphenhydramine HCl (Benadryl) 25 mg IVP Q4 PRN PRN Reason: Itching / Pruritus Last Admin: 03/02/17 09:17 Dose: 25 mg Epoetin Alec (Procrit) 10,000 unit SC MWF [facility] Last Admin: 03/01/17 10:00 Dose: 10,000 unit Ferrous Sulfate (Feosol) 325 mg PO DAILY [facility] Last Admin: 03/02/17 09:15 Dose: 325 mg Meropenem 500 mg/ Sodium (Chloride) 100 mls @ 100 mls/hr IVPB Q12 [facility] Last Admin: 03/02/17 09:38 Dose: 100 mls/hr Insulin Glargine (Lantus) 20 unit SC HS [facility] Last Admin: 03/01/17 22:21 Dose: 20 units Insulin Human Regular (Novolin R) 0 unit SC ACHS [facility] PRN Reason: Protocol Last Admin: 03/02/17 17:30 Dose: Not Given Linezolid (Zyvox) 600 mg PO Q12 [facility] Last Admin: 03/02/17 09:35 Dose: 600 mg Losartan Potassium (Cozaar) 100 mg PO DAILY@1800 [facility] Last Admin: 03/02/17 17:39 Dose: 100 mg Morphine Sulfate (Morphine) 2 mg IVP Q4H PRN PRN Reason: Pain, moderate (4-7) Last Admin: 03/02/17 09:15 Dose: 2 mg Rosuvastatin Calcium (Crestor) 10 mg PO HS [facility] Last Admin: 03/01/17 22:22 Dose: 10 mg Saccharomyces Boulardii (Florastor) 250 mg PO DAILY [facility] Last Admin: 03/02/17 09:36 Dose: 250 mg Sevelamer Carbonate (Renvela) 1.6 gm PO TIDCC [facility] Last Admin: 03/02/17 17:39 Dose: 1.6 gm Vitamin A (Vitamin A & D Oint Ud Foilpak) 1 ea TOP BID PRN PRN Reason: Dry skin Last Admin: 02/28/17 19:56 Dose: 1 ea - Labs Labs: 02/27/17 07:07 03/02/17 08:05 PT 11.1 SECONDS (9.7-12.2) 02/12/17 07:14 INR 1.0 02/12/17 07:14 APTT 32 SECONDS (21-34) 02/12/17 07:14
[2017-03-02] MEDS ORDERED: Bacitracin Ointment 30 GM TUBE TOP ONE ×2 (20:49→22:30)
[2017-03-02] MEDS: (Lantus) Insulin Glargine, Recombinant SC SCH (22:04)
[2017-03-03] MEDS ORDERED: Dextrose 50% SYRINGE Inj (50 ml) IV STA (07:47)
[2017-03-03] MEDS: Morphine 4 MG/ML VIAL IVP PRN ×3 (08:11→21:08)
[2017-03-03] MEDS: (Novolin R) Insulin Human Regular 100 units/ml vial SC SCH ×4 (08:28→22:00)
[2017-03-03 08:35] LABS: BASO # 0.1 K/uL (0.0-0.2); BASO % 0.6 % (0.0-2.0); EOS # 0.2 K/uL (0.0-0.7); EOS % 1.9 % (0.0-4.0); HEMATOCRIT 21.6 % (34.0-47.0); LYMPH # 1.3 K/uL (1.0-4.3); LYMPH % 12.1 % (20.0-40.0); MEAN CELL VOLUME 93.5 fL (81.0-99.0); MEAN CORPUSCULAR HEMOGLOBIN 30.5 pg (27.0-31.0); MEAN CORPUSCULAR HGB CONC 32.6 g/dL (33.0-37.0); MONO # 0.5 K/uL (0.0-0.8); MONO % 4.8 % (0.0-10.0); RED CELL DISTRIBUTION WIDTH 15.5 % (11.5-14.5); WHITE BLOOD COUNT 10.8 K/uL (4.8-10.8)
[2017-03-03] MEDS: Meropenem 500 MG in Sodium Chloride 0.9% 100 ML IVPB SCH ×2 (10:50→21:08)
[2017-03-03] MEDS: Saccharomyces Boulardi 250 mg Cap PO SCH (10:50)
[2017-03-03] MEDS: Sevelamer Carb 0.8 gm/Packet PO SCH ×3 (10:51→17:54)
[2017-03-03] MEDS: Collagenase 250 Units/gm Ointment(30 gm) EXT SCH (10:52)
--- NOTE | 2017-03-03 11:13 | CP.PCM.PN ---
Subjective - Date & Time of Evaluation Date of Evaluation: 03/03/17 Time of Evaluation: 11:11 - Subjective Subjective: Podiatry progress note- Dr. Ordonez: 51 yo female patient seen at bedside 19 days s/p right foot Lisfranc amp. Says pain to foot is controlled, reports better appetite. Also complains of an ulceration found on posterior aspect of contralateral heel. Says that she first noticed this ulceration last night. Denies any redness, drainage, or malodor from the site. Denies f/n/v/c/sob/cp/weakness/dizziness today. Objective - Vital Signs/Intake and Output Vital Signs (last 24 hours): Temp Pulse Resp BP Pulse Ox 97.5 F L 94 H 20 139/65 94 L 03/03/17 08:19 03/03/17 08:19 03/03/17 08:19 03/03/17 08:19 03/03/17 08:19 Intake and Output: 03/03/17 03/03/17 06:59 18:59 Intake Total 400 Balance 400 - Medications Medications: Current Medications Acyclovir (Zovirax 5% Oint) 0 gm EXT Q3H [facility] Last Admin: 03/02/17 20:15 Dose: Not Given Amlodipine Besylate (Norvasc) 10 mg PO DAILY [facility] Last Admin: 03/03/17 10:51 Dose: 10 mg Aspirin (Ecotrin) 81 mg PO DAILY [facility] Last Admin: 03/02/17 09:35 Dose: 81 mg Carvedilol (Coreg) 12.5 mg PO BID [facility] Last Admin: 03/02/17 17:39 Dose: 12.5 mg Clopidogrel Bisulfate (Plavix) 75 mg PO DAILY [facility] Last Admin: 03/03/17 10:49 Dose: 75 mg Collagenase (Santyl) 1 gm EXT DAILY [facility] Last Admin: 03/03/17 10:52 Dose: Not Given Diphenhydramine HCl (Benadryl) 25 mg IVP Q4 PRN PRN Reason: Itching / Pruritus Last Admin: 03/02/17 21:53 Dose: 25 mg Epoetin Alec (Procrit) 10,000 unit SC MWF [facility] Last Admin: 03/01/17 10:00 Dose: 10,000 unit Ferrous Sulfate (Feosol) 325 mg PO DAILY [facility] Last Admin: 03/03/17 10:48 Dose: 325 mg Meropenem 500 mg/ Sodium (Chloride) 100 mls @ 100 mls/hr IVPB Q12 [facility] Last Admin: 03/03/17 10:50 Dose: 100 mls/hr Insulin Glargine (Lantus) 20 unit SC HS [facility] Last Admin: 03/02/17 22:04 Dose: 20 units Insulin Human Regular (Novolin R) 0 unit SC ACHS [facility] PRN Reason: Protocol Last Admin: 03/03/17 08:28 Dose: Not Given Linezolid (Zyvox) 600 mg PO Q12 [facility] Last Admin: 03/03/17 10:50 Dose: 600 mg Losartan Potassium (Cozaar) 100 mg PO DAILY@1800 [facility] Last Admin: 03/02/17 17:39 Dose: 100 mg Morphine Sulfate (Morphine) 2 mg IVP Q4H PRN PRN Reason: Pain, moderate (4-7) Last Admin: 03/03/17 08:11 Dose: 2 mg Rosuvastatin Calcium (Crestor) 10 mg PO [facility] Last Admin: 03/02/17 22:00 Dose: Not Given Saccharomyces Boulardii (Florastor) 250 mg PO DAILY [facility] Last Admin: 03/03/17 10:50 Dose: 250 mg Sevelamer Carbonate (Renvela) 1.6 gm PO TIDCC [facility] Last Admin: 03/03/17 10:51 Dose: 1.6 gm Vitamin A (Vitamin A & D Oint Ud Foilpak) 1 ea TOP BID PRN PRN Reason: Dry skin Last Admin: 02/28/17 19:56 Dose: 1 ea - Labs Labs: 03/03/17 08:19 03/02/17 08:05 PT 11.1 SECONDS (9.7-12.2) 02/12/17 07:14 INR 1.0 02/12/17 07:14 APTT 32 SECONDS (21-34) 02/12/17 07:14 - Constitutional Appears: Well, Non-toxic, No Acute Distress - Extremities Exam Additional comments: RLE exam: Dressing to right foot appears c/d/i VASC- DP pulse is palpable, PT pulse non-palpable, skin temp runs warm to warm ( from proximal to distal), CFT < 3 sec to amputation flap, no pedal edema DERM- surgical incision site appears mostly well-coapted, however there is some dehisence noted to medial and lateral aspect of wound with slight serous drainage, no malodor, no fluctuance, no cellulitis, no purulence, no evidence of necrosis, distal leg temperature normal, scabbing noted over surgical incision site Ulceration measuring approximately 0.5 cm x 0.5 cm x 0.1 cm noted to left foot posterior heel. No erythema, no drainage, no malodor, no other clinical signs of infection noted. No probe to bone, tracking, tunneling or undermining noted. NEURO- pedal sensation is intact ORTHO- moderate pain to palpation of all aspects of amputation stump - Neurological Exam Neurological Exam: Alert, Awake, Oriented x3 - Psychiatric Exam Psychiatric exam: Normal Affect, Normal Mood Assessment and Plan - Assessment and Plan (Free Text) Assessment: 51 y/o female patient 19 days s/p right foot Lisfranc amputation Plan: Pt S&E at bedside d/w Dr. Ordonez Chart,labs, vitals reviewed c/w IV abx as per ID Wound cx (02/27): no growth after 24 hrs (prelim) Wound flushed copiously with peroxide Dressed with betadine soaked gauze, ABD, DSD Posterior heel ulcer of left foot dressed with ABD, DSD Multipodus boots ordered b/l c/w strict NWB to bilateral lower extremities c/w strengthening exercises in bed awaiting auth for [place] Prognosis for limb salvage is guarded but stable Will follow closely.
[2017-03-03] MEDS: Acyclovir 5% Oint (15 gm) EXT SCH ×6 (11:24→23:50)
[2017-03-03] MEDS: DiphenhydrAMINE 50 mg/ml Inj IVP PRN ×2 (12:22→21:09)
--- NOTE | 2017-03-03 14:11 | CP.PCM.PN ---
Subjective - Date & Time of Evaluation Date of Evaluation: 03/03/17 Time of Evaluation: 13:45 - Subjective Subjective: Hospitalist Covering Dr. Lord Patient seen and examined at bedside. Patient is undergoing peritoneal dialysis. Patient reports pain over the right lower extremity amputation area. Patient denies headache, denies chest pain, denies shortness of breathe, denies nausea, denies constipation, reports right lower extremity pain, trace edema. No family bedside. Patient has lunch food at bedside not aware-->motioned the food towards her. Objective - Vital Signs/Intake and Output Vital Signs (last 24 hours): Temp Pulse Resp BP Pulse Ox 97.5 F L 94 H 20 139/65 94 L 03/03/17 08:19 03/03/17 10:00 03/03/17 10:00 03/03/17 11:25 03/03/17 08:19 Intake and Output: 03/03/17 03/03/17 06:59 18:59 Intake Total 400 Balance 400 - Medications Medications: Current Medications Acyclovir (Zovirax 5% Oint) 0 gm EXT Q3H [facility] Last Admin: 03/03/17 11:25 Dose: Not Given Amlodipine Besylate (Norvasc) 10 mg PO DAILY [facility] Last Admin: 03/03/17 10:51 Dose: 10 mg Aspirin (Ecotrin) 81 mg PO DAILY [facility] Last Admin: 03/03/17 11:24 Dose: 81 mg Carvedilol (Coreg) 12.5 mg PO BID [facility] Last Admin: 03/03/17 11:25 Dose: 12.5 mg Clopidogrel Bisulfate (Plavix) 75 mg PO DAILY [facility] Last Admin: 03/03/17 10:49 Dose: 75 mg Collagenase (Santyl) 1 gm EXT DAILY [facility] Last Admin: 03/03/17 10:52 Dose: Not Given Diphenhydramine HCl (Benadryl) 25 mg IVP Q4 PRN PRN Reason: Itching / Pruritus Last Admin: 03/03/17 12:22 Dose: 25 mg Epoetin Alec (Procrit) 10,000 unit SC MWF [facility] Last Admin: 03/01/17 10:00 Dose: 10,000 unit Ferrous Sulfate (Feosol) 325 mg PO DAILY [facility] Last Admin: 03/03/17 10:48 Dose: 325 mg Meropenem 500 mg/ Sodium (Chloride) 100 mls @ 100 mls/hr IVPB Q12 [facility] Last Admin: 03/03/17 10:50 Dose: 100 mls/hr Insulin Glargine (Lantus) 20 unit SC [facility] Last Admin: 03/02/17 22:04 Dose: 20 units Insulin Human Regular (Novolin R) 0 unit SC ACHS [facility] PRN Reason: Protocol Last Admin: 03/03/17 12:29 Dose: Not Given Linezolid (Zyvox) 600 mg PO Q12 [facility] Last Admin: 03/03/17 10:50 Dose: 600 mg Losartan Potassium (Cozaar) 100 mg PO DAILY@1800 [facility] Last Admin: 03/02/17 17:39 Dose: 100 mg Morphine Sulfate (Morphine) 2 mg IVP Q4H PRN PRN Reason: Pain, moderate (4-7) Last Admin: 03/03/17 12:20 Dose: 2 mg Rosuvastatin Calcium (Crestor) 10 mg PO [facility] Last Admin: 03/02/17 22:00 Dose: Not Given Saccharomyces Boulardii (Florastor) 250 mg PO DAILY [facility] Last Admin: 03/03/17 10:50 Dose: 250 mg Sevelamer Carbonate (Renvela) 1.6 gm PO TIDCC [facility] Last Admin: 03/03/17 10:51 Dose: 1.6 gm Vitamin A (Vitamin A & D Oint Ud Foilpak) 1 ea TOP BID PRN PRN Reason: Dry skin Last Admin: 02/28/17 19:56 Dose: 1 ea - Labs Labs: 03/03/17 08:19 03/02/17 08:05 PT 11.1 SECONDS (9.7-12.2) 02/12/17 07:14 INR 1.0 02/12/17 07:14 APTT 32 SECONDS (21-34) 02/12/17 07:14 - Constitutional Appears: Chronically Ill, Other (pale) - Head Exam Head Exam: NORMAL INSPECTION - Eye Exam Eye Exam: EOMI. absent: Nystagmus, Scleral icterus Pupil Exam: PERRL - ENT Exam ENT Exam: Mucous Membranes Dry - Respiratory Exam Respiratory Exam: Clear to Ausculation Bilateral, NORMAL BREATHING PATTERN. absent: Rales, Rhonchi, Wheezes, Stridor - Cardiovascular Exam Cardiovascular Exam: REGULAR RHYTHM, +S1, +S2 - GI/Abdominal Exam GI & Abdominal Exam: Distended, Soft, Normal Bowel Sounds. absent: Firm, Guarding, Rigid, Tenderness, Rebound - Extremities Exam Extremities Exam: Pedal Edema, Tenderness Additional comments: right lower extremity stump site-->dressing appears clean/dry/intact; pain on palpation; trace lymphedema Left lower extremity: no cyanosis, no clubbing, no edema Assessment and Plan - Assessment and Plan (Free Text) Assessment: 51-year-old female with history of hypertension, end-stage renal disease on peritoneal dialysis, high cholesterol, diabetes, history of pneumonia, renal insufficiency, peripheral vascular disease, ischemic right leg, and the complicated with the sepsis. * Sepsis; Right foot gangrene * Criteria: elevated white count, febrile; source of infection: gangrene * Vascular surgery (Dr. Clark) on board--->help appreciated * Podiatry (Dr. Lima) on board-->help appreciated * s/p right Lisfranc amp * Infectious disease (Dr. Cronin) on board-->help appreciated * IV abx: Zyvox 600mg PO Q12 (active since 02/23/17) and Meropenem 500mg IVPB Q 12h (active since 02/1917) * Awaiting recommendations to length of time for Abx per ID * Florastor 250mg PO daily (Note it is on back order in the pharmacy not available in stock) * Foot right (02/27/17): Serratia Marcescens (Meropenem) and VRE (zyvox) * Foot right (02/25/17): Serratia Marcescens and VRE * Peritoneal (02/17/17): no growth after 4days * Renal insufficiency; Peritoneal dialysis * Dr. Macdonald (nephrology) on board-->help appreciated * undergoing at bedside * Renvela 1.6gm PO tidcc * Hypertension * Norvasc 10mg PO daily * Coreg 12.5mg PO bid * Losartan 100mg PO daily * Diabetes * Lantus 20 units subqHS * regular insulin sliding scale subw * Accuchecks qac and HS * Crestor 10mg POqHS * Anemia * likely chronic disease * Procrit * Feosol 325mg PO daily * Prophylactic care * DVT pxx; contraindicated patient is anemic and SCDS contraindicated edema * vitamin A and D ointment 1 each top bid PRN dry * unclear if patient's PICC line has been changed or not per the notes.
--- NOTE | 2017-03-03 15:29 | CP.PCM.PN ---
Subjective - Date & Time of Evaluation Date of Evaluation: 03/03/17 Time of Evaluation: 09:00 - Subjective Subjective: 51-year-old female with history of hypertension, end-stage renal disease on peritoneal dialysis, high cholesterol, diabetes, history of pneumonia, renal insufficiency, peripheral vascular disease, ischemic right leg, and the complicated with the sepsis. has VRE and serratia in wound despite approproate IV antibiotics may need BKA Objective - Vital Signs/Intake and Output Vital Signs (last 24 hours): Temp Pulse Resp BP Pulse Ox 97.5 F L 94 H 20 139/65 94 L 03/03/17 08:19 03/03/17 10:00 03/03/17 10:00 03/03/17 11:25 03/03/17 08:19 Intake and Output: 03/03/17 03/03/17 06:59 18:59 Intake Total 400 525 Output Total 0 Balance 400 525 - Medications Medications: Current Medications Acyclovir (Zovirax 5% Oint) 0 gm EXT Q3H [facility] Last Admin: 03/03/17 14:44 Dose: 1 applic Amlodipine Besylate (Norvasc) 10 mg PO DAILY [facility] Last Admin: 03/03/17 10:51 Dose: 10 mg Aspirin (Ecotrin) 81 mg PO DAILY [facility] Last Admin: 03/03/17 11:24 Dose: 81 mg Carvedilol (Coreg) 12.5 mg PO BID [facility] Last Admin: 03/03/17 11:25 Dose: 12.5 mg Clopidogrel Bisulfate (Plavix) 75 mg PO DAILY [facility] Last Admin: 03/03/17 10:49 Dose: 75 mg Collagenase (Santyl) 1 gm EXT DAILY [facility] Last Admin: 03/03/17 10:52 Dose: Not Given Diphenhydramine HCl (Benadryl) 25 mg IVP Q4 PRN PRN Reason: Itching / Pruritus Last Admin: 03/03/17 12:22 Dose: 25 mg Epoetin Alec (Procrit) 10,000 unit SC MWF [facility] Last Admin: 03/01/17 10:00 Dose: 10,000 unit Ferrous Sulfate (Feosol) 325 mg PO DAILY [facility] Last Admin: 03/03/17 10:48 Dose: 325 mg Meropenem 500 mg/ Sodium (Chloride) 100 mls @ 100 mls/hr IVPB Q12 [facility] Last Admin: 03/03/17 10:50 Dose: 100 mls/hr Insulin Glargine (Lantus) 20 unit SC HS [facility] Last Admin: 03/02/17 22:04 Dose: 20 units Insulin Human Regular (Novolin R) 0 unit SC ACHS [facility] PRN Reason: Protocol Last Admin: 03/03/17 12:29 Dose: Not Given Linezolid (Zyvox) 600 mg PO Q12 [facility] Last Admin: 03/03/17 10:50 Dose: 600 mg Losartan Potassium (Cozaar) 100 mg PO DAILY@1800 [facility] Last Admin: 03/02/17 17:39 Dose: 100 mg Morphine Sulfate (Morphine) 2 mg IVP Q4H PRN PRN Reason: Pain, moderate (4-7) Last Admin: 03/03/17 12:20 Dose: 2 mg Rosuvastatin Calcium (Crestor) 10 mg PO HS [facility] Last Admin: 03/02/17 22:00 Dose: Not Given Saccharomyces Boulardii (Florastor) 250 mg PO DAILY [facility] Last Admin: 03/03/17 10:50 Dose: 250 mg Sevelamer Carbonate (Renvela) 1.6 gm PO TIDCC [facility] Last Admin: 03/03/17 14:44 Dose: Not Given Vitamin A (Vitamin A & D Oint Ud Foilpak) 1 ea TOP BID PRN PRN Reason: Dry skin Last Admin: 02/28/17 19:56 Dose: 1 ea - Labs Labs: 03/03/17 08:19 03/02/17 08:05 PT 11.1 SECONDS (9.7-12.2) 02/12/17 07:14 INR 1.0 02/12/17 07:14 APTT 32 SECONDS (21-34) 02/12/17 07:14 - Constitutional Appears: Non-toxic, Chronically Ill - Head Exam Head Exam: NORMOCEPHALIC - Eye Exam Eye Exam: PERRL. absent: Scleral icterus - ENT Exam ENT Exam: Normal External Ear Exam - Neck Exam Neck Exam: absent: Lymphadenopathy - Respiratory Exam Respiratory Exam: Decreased Breath Sounds - Cardiovascular Exam Cardiovascular Exam: REGULAR RHYTHM - GI/Abdominal Exam GI & Abdominal Exam: Distended, Soft - Rectal Exam Rectal Exam: Deferred - Exam Exam: NORMAL INSPECTION - Extremities Exam Extremities Exam: Pedal Edema - Back Exam Back Exam: absent: CVA tenderness (L), CVA tenderness (R) - Neurological Exam Neurological Exam: Alert, Awake, CN II-XII Intact - Psychiatric Exam Psychiatric exam: Depressed - Skin Skin Exam: Dry Assessment and Plan (1) Gangrene of right foot Status: Acute (2) Chronic anemia Status: Acute (3) Chronic congestive heart failure Status: Acute (4) Diabetes mellitus Status: Acute (5) ESRD on peritoneal dialysis Assessment & Plan: 51-year-old female with history of hypertension, end-stage renal disease on peritoneal dialysis, high cholesterol, diabetes, history of pneumonia, renal insufficiency, peripheral vascular disease, ischemic right leg, and the complicated with the sepsis. has VRE and serratia in wound despite approproate IV antibiotics may need BKA Status: Acute
[2017-03-03] MEDS: (Lantus) Insulin Glargine, Recombinant SC SCH (21:08)
[2017-03-04] MEDS: Acyclovir 5% Oint (15 gm) EXT SCH ×7 (02:15→21:15)
[2017-03-04] MEDS: Morphine 4 MG/ML VIAL IVP PRN ×3 (10:13→23:01)
[2017-03-04] MEDS: DiphenhydrAMINE 50 mg/ml Inj IVP PRN ×2 (10:14→14:57)
[2017-03-04] MEDS: Meropenem 500 MG in Sodium Chloride 0.9% 100 ML IVPB SCH ×2 (10:14→23:00)
[2017-03-04] MEDS: Sevelamer Carb 0.8 gm/Packet PO SCH ×3 (10:15→17:00)
[2017-03-04] MEDS: Saccharomyces Boulardi 250 mg Cap PO SCH (10:15)
[2017-03-04] MEDS: Collagenase 250 Units/gm Ointment(30 gm) EXT SCH (10:16)
[2017-03-04] MEDS: EPOETIN ALFA 10,000 UNIT/ML ML SC SCH ×3 (10:16→18:28)
[2017-03-04] MEDS: (Novolin R) Insulin Human Regular 100 units/ml vial SC SCH ×4 (10:28→21:45)
--- NOTE | 2017-03-04 12:43 | CP.PCM.PN ---
Subjective - Date & Time of Evaluation Date of Evaluation: 03/04/17 Time of Evaluation: 12:40 - Subjective Subjective: Undergoing PD exchange- going well Remains on IV ABs for wound infection Wounds dressed by surgery Rather anemic still- on ESAs; will recheck Fe stores No n, v, d, f, chills, HAs, CPs Objective - Vital Signs/Intake and Output Vital Signs (last 24 hours): Temp Pulse Resp BP Pulse Ox 98.1 F 99 H 20 143/77 92 L 03/04/17 08:00 03/04/17 10:27 03/04/17 08:00 03/04/17 10:27 03/04/17 08:00 Intake and Output: 03/04/17 03/04/17 06:59 18:59 Intake Total 400 Balance 400 - Medications Medications: Current Medications Acyclovir (Zovirax 5% Oint) 0 gm EXT Q3H [facility] Last Admin: 03/04/17 06:00 Dose: 1 applic Amlodipine Besylate (Norvasc) 10 mg PO DAILY [facility] Last Admin: 03/04/17 10:15 Dose: 10 mg Aspirin (Ecotrin) 81 mg PO DAILY [facility] Last Admin: 03/04/17 10:15 Dose: 81 mg Carvedilol (Coreg) 12.5 mg PO BID [facility] Last Admin: 03/04/17 10:27 Dose: 12.5 mg Clopidogrel Bisulfate (Plavix) 75 mg PO DAILY [facility] Last Admin: 03/04/17 10:15 Dose: 75 mg Collagenase (Santyl) 1 gm EXT DAILY [facility] Last Admin: 03/04/17 10:16 Dose: Not Given Diphenhydramine HCl (Benadryl) 25 mg IVP Q4 PRN PRN Reason: Itching / Pruritus Last Admin: 03/04/17 10:14 Dose: 25 mg Epoetin Alec (Procrit) 10,000 unit SC MWF [facility] Last Admin: 03/04/17 10:26 Dose: Not Given Ferrous Sulfate (Feosol) 325 mg PO DAILY [facility] Last Admin: 03/04/17 10:15 Dose: 325 mg Meropenem 500 mg/ Sodium (Chloride) 100 mls @ 100 mls/hr IVPB Q12 [facility] Last Admin: 03/04/17 10:14 Dose: 100 mls/hr Insulin Glargine (Lantus) 20 unit SC HS [facility] Last Admin: 03/03/17 21:08 Dose: 20 units Insulin Human Regular (Novolin R) 0 unit SC ACHS [facility] PRN Reason: Protocol Last Admin: 03/04/17 10:28 Dose: 2 unit Linezolid (Zyvox) 600 mg PO Q12 [facility] Last Admin: 03/04/17 10:15 Dose: 600 mg Losartan Potassium (Cozaar) 100 mg PO DAILY@1800 [facility] Last Admin: 03/03/17 17:57 Dose: 100 mg Morphine Sulfate (Morphine) 2 mg IVP Q4H PRN PRN Reason: Pain, moderate (4-7) Last Admin: 03/04/17 10:13 Dose: 2 mg Rosuvastatin Calcium (Crestor) 10 mg PO HS [facility] Last Admin: 03/03/17 22:00 Dose: Not Given Saccharomyces Boulardii (Florastor) 250 mg PO DAILY [facility] Last Admin: 03/04/17 10:15 Dose: 250 mg Sevelamer Carbonate (Renvela) 1.6 gm PO TIDCC [facility] Last Admin: 03/04/17 10:15 Dose: 1.6 gm Vitamin A (Vitamin A & D Oint Ud Foilpak) 1 ea TOP BID PRN PRN Reason: Dry skin Last Admin: 02/28/17 19:56 Dose: 1 ea - Labs Labs: 03/03/17 08:19 03/02/17 08:05 PT 11.1 SECONDS (9.7-12.2) 02/12/17 07:14 INR 1.0 02/12/17 07:14 APTT 32 SECONDS (21-34) 02/12/17 07:14 - Constitutional Appears: No Acute Distress, Chronically Ill - Head Exam Head Exam: ATRAUMATIC, NORMAL INSPECTION - Eye Exam Eye Exam: EOMI, Normal appearance - Neck Exam Neck Exam: Normal Inspection. absent: Tenderness - Respiratory Exam Respiratory Exam: Clear to Ausculation Bilateral, NORMAL BREATHING PATTERN - Cardiovascular Exam Cardiovascular Exam: REGULAR RHYTHM, +S1 - GI/Abdominal Exam GI & Abdominal Exam: Soft. absent: Tenderness - Extremities Exam Extremities Exam: Calf Tenderness, Tenderness - Neurological Exam Neurological Exam: Awake, CN II-XII Intact - Skin Skin Exam: Dry, Warm Assessment and Plan (1) Type 1 diabetes mellitus with diabetic nephropathy Status: Acute (2) Gangrene of right foot Status: Acute (3) End stage renal disease Status: Acute - Assessment and Plan (Free Text) Plan: Recheck fe stores IV ABs, wound care same meds/PD
[2017-03-04] MEDS ORDERED: Dextrose 50% SYRINGE Inj (50 ml) IV STA (13:56)
--- NOTE | 2017-03-04 13:56 | RAD ---
Chest x-ray single frontal view History: PICC line. Comparison: 02/15/2017 Findings: Right PICC line with tip extending to the cavoatrial junction. Prominent diffuse increased interstitial lung markings suggestive for moderate venous congestion. Mild cardiomegaly. Degenerative changes in the spine and shoulders. Impression: Right PICC line with tip extending to the cavoatrial junction. Prominent diffuse increased interstitial lung markings suggestive for moderate venous congestion. Mild cardiomegaly.
--- NOTE | 2017-03-04 21:14 | CP.PCM.PN ---
Subjective - Date & Time of Evaluation Date of Evaluation: 03/04/17 Time of Evaluation: 21:13 - Subjective Subjective: Patient is currently receiving the peritoneal dialysis. Complaining of some pain over the right foot. Also agrees a minimal left heel skin break noted. Also combining of pain in the buttock area. Having bowel movements. No diarrhea. Receiving the peritoneal dialysis Otherwise nonspecific. Patient is a 51-year-old female with a history of long-standing diabetes, renal disease complicated with the macrovascular complication of the legs and associated with ischemic changes. Patient is high risk for bilateral rotation because of the ongoing ischemic changes and severe peripheral vascular disease. Spoke to the patient and explained to the patient. Follow-up the patient Objective - Vital Signs/Intake and Output Vital Signs (last 24 hours): Temp Pulse Resp BP Pulse Ox 98 F 98 H 18 128/61 96 03/04/17 16:00 03/04/17 16:00 03/04/17 16:00 03/04/17 18:16 03/04/17 16:00 - Medications Medications: Current Medications Acyclovir (Zovirax 5% Oint) 0 gm EXT Q3H [facility] Last Admin: 03/04/17 18:17 Dose: Not Given Amlodipine Besylate (Norvasc) 10 mg PO DAILY [facility] Last Admin: 03/04/17 10:15 Dose: 10 mg Aspirin (Ecotrin) 81 mg PO DAILY [facility] Last Admin: 03/04/17 10:15 Dose: 81 mg Carvedilol (Coreg) 12.5 mg PO BID [facility] Last Admin: 03/04/17 18:16 Dose: 12.5 mg Clopidogrel Bisulfate (Plavix) 75 mg PO DAILY [facility] Last Admin: 03/04/17 10:15 Dose: 75 mg Collagenase (Santyl) 1 gm EXT DAILY [facility] Last Admin: 03/04/17 10:16 Dose: Not Given Diphenhydramine HCl (Benadryl) 25 mg IVP Q4 PRN PRN Reason: Itching / Pruritus Last Admin: 03/04/17 14:57 Dose: 25 mg Epoetin Alec (Procrit) 10,000 unit SC MWF [facility] Last Admin: 03/04/17 18:28 Dose: 10,000 unit Ferrous Sulfate (Feosol) 325 mg PO DAILY [facility] Last Admin: 03/04/17 10:15 Dose: 325 mg Meropenem 500 mg/ Sodium (Chloride) 100 mls @ 100 mls/hr IVPB Q12 [facility] Last Admin: 03/04/17 10:14 Dose: 100 mls/hr Insulin Glargine (Lantus) 20 unit SC HS [facility] Last Admin: 03/03/17 21:08 Dose: 20 units Insulin Human Regular (Novolin R) 0 unit SC ACHS [facility] PRN Reason: Protocol Last Admin: 03/04/17 16:30 Dose: Not Given Linezolid (Zyvox) 600 mg PO Q12 [facility] Last Admin: 03/04/17 10:15 Dose: 600 mg Losartan Potassium (Cozaar) 100 mg PO DAILY@1800 [facility] Last Admin: 03/04/17 18:16 Dose: 100 mg Morphine Sulfate (Morphine) 2 mg IVP Q4H PRN PRN Reason: Pain, moderate (4-7) Last Admin: 03/04/17 10:13 Dose: 2 mg Rosuvastatin Calcium (Crestor) 10 mg PO HS [facility] Last Admin: 03/03/17 22:00 Dose: Not Given Saccharomyces Boulardii (Florastor) 250 mg PO DAILY [facility] Last Admin: 03/04/17 10:15 Dose: 250 mg Sevelamer Carbonate (Renvela) 1.6 gm PO TIDCC [facility] Last Admin: 03/04/17 17:00 Dose: 1.6 gm Vitamin A (Vitamin A & D Oint Ud Foilpak) 1 ea TOP BID PRN PRN Reason: Dry skin Last Admin: 02/28/17 19:56 Dose: 1 ea - Labs Labs: 03/03/17 08:19 03/02/17 08:05 PT 11.1 SECONDS (9.7-12.2) 02/12/17 07:14 INR 1.0 02/12/17 07:14 APTT 32 SECONDS (21-34) 02/12/17 07:14
[2017-03-04] MEDS: (Lantus) Insulin Glargine, Recombinant SC SCH (21:44)
[2017-03-05] MEDS: DiphenhydrAMINE 50 mg/ml Inj IVP PRN ×6 (00:12→21:58)
[2017-03-05] MEDS: Acyclovir 5% Oint (15 gm) EXT SCH ×7 (00:19→23:53)
[2017-03-05] MEDS: Morphine 4 MG/ML VIAL IVP PRN (03:05)
[2017-03-05] MEDS: (Novolin R) Insulin Human Regular 100 units/ml vial SC SCH ×4 (07:51→21:52)
[2017-03-05] MEDS: Meropenem 500 MG in Sodium Chloride 0.9% 100 ML IVPB SCH ×2 (10:13→21:50)
[2017-03-05] MEDS: Sevelamer Carb 0.8 gm/Packet PO SCH ×3 (10:30→18:30)
[2017-03-05] MEDS: Saccharomyces Boulardi 250 mg Cap PO SCH (10:32)
[2017-03-05] MEDS: Collagenase 250 Units/gm Ointment(30 gm) EXT SCH (10:35)
--- NOTE | 2017-03-05 10:51 | CP.PCM.PN ---
Subjective - Date & Time of Evaluation Date of Evaluation: 03/05/17 Time of Evaluation: 10:49 - Subjective Subjective: seen and examined c/o diarrhea- 3 soft stools yesterday tearful c/o rt leg pain denies any nausea vomiting sob cp rash dizziness headache Objective - Vital Signs/Intake and Output Vital Signs (last 24 hours): Temp Pulse Resp BP Pulse Ox 98.0 F 98 H 20 137/70 96 03/05/17 09:54 03/05/17 09:54 03/05/17 09:54 03/05/17 10:39 03/05/17 09:54 Intake and Output: 03/05/17 03/05/17 06:59 18:59 Intake Total 640 Balance 640 - Medications Medications: Current Medications Acyclovir (Zovirax 5% Oint) 0 gm EXT Q3H [facility] Last Admin: 03/05/17 10:44 Dose: 1 applic Amlodipine Besylate (Norvasc) 10 mg PO DAILY [facility] Last Admin: 03/05/17 10:33 Dose: 10 mg Aspirin (Ecotrin) 81 mg PO DAILY [facility] Last Admin: 03/05/17 10:40 Dose: 81 mg Carvedilol (Coreg) 12.5 mg PO BID [facility] Last Admin: 03/05/17 10:39 Dose: 12.5 mg Clopidogrel Bisulfate (Plavix) 75 mg PO DAILY [facility] Last Admin: 03/05/17 10:32 Dose: 75 mg Collagenase (Santyl) 1 gm EXT DAILY [facility] Last Admin: 03/05/17 10:35 Dose: Not Given Diphenhydramine HCl (Benadryl) 25 mg IVP Q4 PRN PRN Reason: Itching / Pruritus Last Admin: 03/05/17 10:21 Dose: 25 mg Epoetin Alec (Procrit) 10,000 unit SC MWF [facility] Last Admin: 03/04/17 18:28 Dose: 10,000 unit Ferrous Sulfate (Feosol) 325 mg PO DAILY [facility] Last Admin: 03/05/17 10:32 Dose: 325 mg Meropenem 500 mg/ Sodium (Chloride) 100 mls @ 100 mls/hr IVPB Q12 [facility] Last Admin: 03/05/17 10:13 Dose: 100 mls/hr Insulin Glargine (Lantus) 20 unit SC HS [facility] Last Admin: 03/04/17 21:44 Dose: 20 units Insulin Human Regular (Novolin R) 0 unit SC ACHS [facility] PRN Reason: Protocol Last Admin: 03/05/17 07:51 Dose: Not Given Linezolid (Zyvox) 600 mg PO Q12 [facility] Last Admin: 03/05/17 10:32 Dose: 600 mg Losartan Potassium (Cozaar) 100 mg PO DAILY@1800 [facility] Last Admin: 03/04/17 18:16 Dose: 100 mg Morphine Sulfate (Morphine) 2 mg IVP Q4H PRN PRN Reason: Pain, moderate (4-7) Last Admin: 03/05/17 10:22 Dose: 2 mg Rosuvastatin Calcium (Crestor) 10 mg PO HS [facility] Last Admin: 03/04/17 22:30 Dose: Not Given Saccharomyces Boulardii (Florastor) 250 mg PO DAILY [facility] Last Admin: 03/05/17 10:32 Dose: 250 mg Sevelamer Carbonate (Renvela) 1.6 gm PO TIDCC [facility] Last Admin: 03/05/17 10:30 Dose: Not Given Vitamin A (Vitamin A & D Oint Ud Foilpak) 1 ea TOP BID PRN PRN Reason: Dry skin Last Admin: 02/28/17 19:56 Dose: 1 ea - Labs Labs: 03/03/17 08:19 03/02/17 08:05 PT 11.1 SECONDS (9.7-12.2) 02/12/17 07:14 INR 1.0 02/12/17 07:14 APTT 32 SECONDS (21-34) 02/12/17 07:14 - Constitutional Appears: Non-toxic, No Acute Distress, Chronically Ill - Head Exam Head Exam: NORMAL INSPECTION - Eye Exam Eye Exam: Normal appearance - ENT Exam ENT Exam: Mucous Membranes Moist, Normal Exam - Neck Exam Neck Exam: Normal Inspection - Respiratory Exam Respiratory Exam: Clear to Ausculation Bilateral, NORMAL BREATHING PATTERN - Cardiovascular Exam Cardiovascular Exam: REGULAR RHYTHM, RRR - GI/Abdominal Exam GI & Abdominal Exam: Distended (pd catheter), Soft - Extremities Exam Extremities Exam: Normal Inspection (rt foot in dressing, chronic skin changes) - Neurological Exam Neurological Exam: Alert, Awake, Oriented x3 - Psychiatric Exam Psychiatric exam: Normal Affect Assessment and Plan (1) Gangrene of right foot Status: Acute (2) Anemia Status: Acute (3) Diabetes mellitus Status: Acute (4) ESRD on peritoneal dialysis Status: Acute (5) Hyperkalemia Status: Acute (6) Hypertension Status: Acute - Assessment and Plan (Free Text) Assessment: maintain PD On high dose anabela,PO iron. pending iron stores
--- NOTE | 2017-03-05 20:20 | CP.PCM.PN ---
Subjective - Date & Time of Evaluation Date of Evaluation: 03/05/17 Time of Evaluation: 11:50 - Subjective Subjective: Podiatry progress note- Dr. Oakley: 51 yo female patient seen at bedside 21 days s/p right foot Lisfranc amp and ulcer to left heel, with attending, Dr. Oakley. She says her right foot pain is well controlled though intermittent throbbing pain will occur when she initially elevates the foot. lDenies f/n/v/c/sob/cp/weakness/dizziness today. Objective - Vital Signs/Intake and Output Vital Signs (last 24 hours): Temp Pulse Resp BP Pulse Ox 98.4 F 96 H 20 119/62 97 03/05/17 16:00 03/05/17 16:00 03/05/17 16:00 03/05/17 18:30 03/05/17 16:00 - Medications Medications: Current Medications Acyclovir (Zovirax 5% Oint) 0 gm EXT Q3H [facility] Last Admin: 03/05/17 10:44 Dose: 1 applic Amlodipine Besylate (Norvasc) 10 mg PO DAILY [facility] Last Admin: 03/05/17 10:33 Dose: 10 mg Aspirin (Ecotrin) 81 mg PO DAILY [facility] Last Admin: 03/05/17 10:40 Dose: 81 mg Carvedilol (Coreg) 12.5 mg PO BID [facility] Last Admin: 03/05/17 18:30 Dose: 12.5 mg Clopidogrel Bisulfate (Plavix) 75 mg PO DAILY [facility] Last Admin: 03/05/17 10:32 Dose: 75 mg Collagenase (Santyl) 1 gm TOP DAILY [facility] Diphenhydramine HCl (Benadryl) 25 mg IVP Q4 PRN PRN Reason: Itching / Pruritus Last Admin: 03/05/17 14:40 Dose: 25 mg Epoetin Alec (Procrit) 10,000 unit SC MWF [facility] Last Admin: 03/04/17 18:28 Dose: 10,000 unit Ferrous Sulfate (Feosol) 325 mg PO DAILY [facility] Last Admin: 03/05/17 10:32 Dose: 325 mg Meropenem 500 mg/ Sodium (Chloride) 100 mls @ 100 mls/hr IVPB Q12 [facility] Last Admin: 03/05/17 10:13 Dose: 100 mls/hr Insulin Glargine (Lantus) 20 unit SC HS [facility] Last Admin: 03/04/17 21:44 Dose: 20 units Insulin Human Regular (Novolin R) 0 unit SC ACHS [facility] PRN Reason: Protocol Last Admin: 03/05/17 17:00 Dose: Not Given Linezolid (Zyvox) 600 mg PO Q12 [facility] Last Admin: 03/05/17 10:32 Dose: 600 mg Losartan Potassium (Cozaar) 100 mg PO DAILY@1800 [facility] Last Admin: 03/05/17 18:31 Dose: 100 mg Morphine Sulfate (Morphine) 2 mg IVP Q4H PRN PRN Reason: Pain, moderate (4-7) Last Admin: 03/05/17 14:41 Dose: 2 mg Rosuvastatin Calcium (Crestor) 10 mg PO HS [facility] Last Admin: 03/04/17 22:30 Dose: Not Given Saccharomyces Boulardii (Florastor) 250 mg PO DAILY [facility] Last Admin: 03/05/17 10:32 Dose: 250 mg Sevelamer Carbonate (Renvela) 1.6 gm PO TIDCC [facility] Last Admin: 03/05/17 18:30 Dose: 1.6 gm Vitamin A (Vitamin A & D Oint Ud Foilpak) 1 ea TOP BID PRN PRN Reason: Dry skin Last Admin: 02/28/17 19:56 Dose: 1 ea - Labs Labs: 03/03/17 08:19 03/02/17 08:05 PT 11.1 SECONDS (9.7-12.2) 02/12/17 07:14 INR 1.0 02/12/17 07:14 APTT 32 SECONDS (21-34) 02/12/17 07:14 - Constitutional Appears: Well, Non-toxic, No Acute Distress - Extremities Exam Additional comments: LE exam: Dressings to both feet appears c/d/i VASC- DP pulse is palpable, PT pulse non-palpable, skin temp runs warm to warm ( from proximal to distal), CFT < 3 sec to amputation flap, no pedal edema DERM- surgical incision site appears mostly well-coapted, however there is some dehisence noted to medial and lateral aspect of wound with slight serous drainage, no malodor, no fluctuance, no cellulitis, no purulence, no evidence of necrosis, distal leg temperature normal, scabbing noted over surgical incision site. Plantar flap lap is stable absent cyanosis or pallor, warm to touch. All sutures remain intact. Superficial ulceration measuring approximately 0.5 cm x 0.5 cm x 0.1 cm noted to left foot posterior heel. No erythema, no drainage, no malodor, no other clinical signs of infection noted. No probe to bone, tracking, tunneling or undermining noted. NEURO- pedal sensation is intact ORTHO- moderate pain to palpation of all aspects of amputation stump - Neurological Exam Neurological Exam: Alert, Awake, Oriented x3 Assessment and Plan - Assessment and Plan (Free Text) Assessment: 51 y/o female patient 1) 21 days s/p right foot Lisfranc amputation 2) Left heel superficial ulceration, uncomplicated. Plan: Pt evaluated and treated at bedside with attending, Dr. Oakley, present. Chart, labs, and vitals reviewed. c/w IV abx as per ID Right foot medial visible surgical site sutures removed. Flap remains adhered. Right foot surgical site flushed copiously with peroxide. Dressed with betadine soaked gauze, ABD, DSD Posterior heel ulcer cleansed with sterile saline. Santyl ordered to be applied to left heel ulcer site starting tomorrow. Directed pt to continue wearing Multipodus boots while in bed to both lower extremities. Continue strict NWB to bilateral lower extremities Continue strengthening and reconditioning exercises in bed Awaiting [place] placement. Podiatry will continue to follow while inhouse.
[2017-03-05] MEDS: (Lantus) Insulin Glargine, Recombinant SC SCH (21:51)
[2017-03-06] MEDS: DiphenhydrAMINE 50 mg/ml Inj IVP PRN ×5 (02:07→21:46)
[2017-03-06] MEDS: Acyclovir 5% Oint (15 gm) EXT SCH ×9 (03:44→23:55)
[2017-03-06 04:12] LABS: MEAN CELL VOLUME 93.3 fL (81.0-99.0); MEAN CORPUSCULAR HGB CONC 32.2 g/dL (33.0-37.0); MEAN PLATELET VOLUME 7.1 fL (7.2-11.7); RED CELL DISTRIBUTION WIDTH 15.7 % (11.5-14.5); WHITE BLOOD COUNT 10.6 K/uL (4.8-10.8)
[2017-03-06 04:41] LABS: POTASSIUM 4.5 mmol/L (3.6-5.2)
[2017-03-06 04:44] LABS: CALCIUM 9.6 mg/dl (8.6-10.4)
--- NOTE | 2017-03-06 06:58 | CP.PCM.PN ---
Subjective - Date & Time of Evaluation Date of Evaluation: 03/06/17 Time of Evaluation: 09:45 - Subjective Subjective: Podiatry progress note- Dr. Oakley: 51 yo female patient seen at bedside 22 days s/p right foot Lisfranc amp and ulcer to left heel. She says her right foot pain is well controlled though intermittent throbbing pain will occur when she initially elevates the foot. She states she has refused the nursing staff to perform night time dressing change. Denies f/n/v/c/sob/cp/weakness/dizziness today. Objective - Vital Signs/Intake and Output Vital Signs (last 24 hours): Temp Pulse Resp BP Pulse Ox 98 F 93 H 20 137/73 96 03/06/17 00:15 03/06/17 00:15 03/06/17 00:15 03/06/17 00:15 03/06/17 00:15 Intake and Output: 03/05/17 03/06/17 18:59 06:59 Intake Total 100 Balance 100 - Medications Medications: Current Medications Acyclovir (Zovirax 5% Oint) 0 gm EXT Q3H [facility] Last Admin: 03/06/17 05:27 Dose: Not Given Amlodipine Besylate (Norvasc) 10 mg PO DAILY [facility] Last Admin: 03/05/17 10:33 Dose: 10 mg Aspirin (Ecotrin) 81 mg PO DAILY [facility] Last Admin: 03/05/17 10:40 Dose: 81 mg Carvedilol (Coreg) 12.5 mg PO BID [facility] Last Admin: 03/05/17 18:30 Dose: 12.5 mg Clopidogrel Bisulfate (Plavix) 75 mg PO DAILY [facility] Last Admin: 03/05/17 10:32 Dose: 75 mg Collagenase (Santyl) 1 gm TOP DAILY [facility] Diphenhydramine HCl (Benadryl) 25 mg IVP Q4 PRN PRN Reason: Itching / Pruritus Last Admin: 03/06/17 06:39 Dose: 25 mg Epoetin Alec (Procrit) 10,000 unit SC MWF [facility] Last Admin: 03/04/17 18:28 Dose: 10,000 unit Ferrous Sulfate (Feosol) 325 mg PO DAILY [facility] Last Admin: 03/05/17 10:32 Dose: 325 mg Meropenem 500 mg/ Sodium (Chloride) 100 mls @ 100 mls/hr IVPB Q12 [facility] Last Admin: 03/05/17 21:50 Dose: 100 mls/hr Insulin Glargine (Lantus) 20 unit SC HS [facility] Last Admin: 03/05/17 21:51 Dose: 20 units Insulin Human Regular (Novolin R) 0 unit SC ACHS [facility] PRN Reason: Protocol Last Admin: 03/05/17 21:52 Dose: Not Given Linezolid (Zyvox) 600 mg PO Q12 [facility] Last Admin: 03/05/17 21:51 Dose: 600 mg Losartan Potassium (Cozaar) 100 mg PO DAILY@1800 [facility] Last Admin: 03/05/17 18:31 Dose: 100 mg Morphine Sulfate (Morphine) 2 mg IVP Q4H PRN PRN Reason: Pain, moderate (4-7) Last Admin: 03/06/17 06:40 Dose: 2 mg Rosuvastatin Calcium (Crestor) 10 mg PO HS [facility] Last Admin: 03/05/17 21:51 Dose: Not Given Saccharomyces Boulardii (Florastor) 250 mg PO DAILY [facility] Last Admin: 03/05/17 10:32 Dose: 250 mg Sevelamer Carbonate (Renvela) 1.6 gm PO TIDCC [facility] Last Admin: 03/05/17 18:30 Dose: 1.6 gm Vitamin A (Vitamin A & D Oint Ud Foilpak) 1 ea TOP BID PRN PRN Reason: Dry skin Last Admin: 02/28/17 19:56 Dose: 1 ea - Labs Labs: 03/06/17 04:04 03/06/17 04:04 PT 11.1 SECONDS (9.7-12.2) 02/12/17 07:14 INR 1.0 02/12/17 07:14 APTT 32 SECONDS (21-34) 02/12/17 07:14 - Constitutional Appears: Well, Non-toxic, No Acute Distress - Extremities Exam Additional comments: LE exam: Dressings to both feet appears c/d/i VASC- DP pulse is palpable, PT pulse non-palpable, skin temp runs warm to warm ( from proximal to distal), CFT < 3 sec to amputation flap, no pedal edema DERM- surgical incision site appears mostly well-coapted, however there is some dehisence noted to medial and lateral aspect of wound with slight serous drainage, no malodor, no fluctuance, no cellulitis, no purulence, no evidence of necrosis, distal leg temperature normal, scabbing noted over surgical incision site. Plantar flap lap is stable absent cyanosis or pallor, warm to touch. All sutures remain intact. Superficial ulceration measuring approximately 0.5 cm x 0.5 cm x 0.1 cm noted to left foot posterior heel. No erythema, no drainage, no malodor, no other clinical signs of infection noted. No probe to bone, tracking, tunneling or undermining noted. NEURO- pedal sensation is intact ORTHO- moderate pain to palpation of all aspects of amputation stump Assessment and Plan - Assessment and Plan (Free Text) Assessment: 51 y/o female patient 1) 22 days s/p right foot Lisfranc amputation 2) Left heel superficial ulceration, uncomplicated. Plan: Pt evaluated and treated at bedside. Discussed with attending, Dr. Oakley, whom endorsed the following plan. Chart, labs, and vitals reviewed. c/w IV abx as per ID Right foot surgical site flushed copiously with peroxide. Dressed with betadine soaked gauze, ABD, DSD Santyl and DSD applied to left heel ulcer site. Discussed with patient need to allow nursing staff to perform nighttime dressing change which is being performed with specific instruction and detailed steps by Dr. Oakley. Pt amenable and agrees to allow nursing staff to perform dressing change. Directed pt to continue wearing Multipodus boots while in bed to both lower extremities. Continue strict NWB to bilateral lower extremities Continue strengthening and reconditioning exercises in bed Awaiting [facility] placement. Podiatry will continue to follow while inhouse.
[2017-03-06] MEDS: (Novolin R) Insulin Human Regular 100 units/ml vial SC SCH ×4 (07:30→22:00)
[2017-03-06] MEDS: Sevelamer Carb 0.8 gm/Packet PO SCH ×4 (08:48→17:15)
[2017-03-06] MEDS: Collagenase 250 Units/gm Ointment(30 gm) TOP SCH (09:00)
[2017-03-06] MEDS: Meropenem 500 MG in Sodium Chloride 0.9% 100 ML IVPB SCH ×2 (10:55→21:46)
[2017-03-06] MEDS: EPOETIN ALFA 10,000 UNIT/ML ML SC SCH (10:55)
[2017-03-06] MEDS: Saccharomyces Boulardi 250 mg Cap PO SCH (11:14)
--- NOTE | 2017-03-06 14:49 | CP.PCM.PN ---
Subjective - Date & Time of Evaluation Date of Evaluation: 03/06/17 Time of Evaluation: 14:46 - Subjective Subjective: No more diarrhea PD going well Wounds addressed by surgery Receiving blood transfusion for Hg 6.1 Iron stores appear adequate No f, c , CPs, HAs, n, v Objective - Vital Signs/Intake and Output Vital Signs (last 24 hours): Temp Pulse Resp BP Pulse Ox 98.1 F 89 18 111/72 98 03/06/17 14:35 03/06/17 14:35 03/06/17 14:35 03/06/17 14:35 03/06/17 07:00 Intake and Output: 03/06/17 03/06/17 06:59 18:59 Intake Total 100 0 Balance 100 0 - Medications Medications: Current Medications Acyclovir (Zovirax 5% Oint) 0 gm EXT Q3H [facility] Last Admin: 03/06/17 11:08 Dose: Not Given Amlodipine Besylate (Norvasc) 10 mg PO DAILY [facility] Last Admin: 03/06/17 10:55 Dose: 10 mg Aspirin (Ecotrin) 81 mg PO DAILY [facility] Last Admin: 03/06/17 10:55 Dose: 81 mg Carvedilol (Coreg) 12.5 mg PO BID [facility] Last Admin: 03/06/17 10:55 Dose: 12.5 mg Clopidogrel Bisulfate (Plavix) 75 mg PO DAILY [facility] Last Admin: 03/06/17 10:55 Dose: 75 mg Collagenase (Santyl) 1 gm TOP DAILY [facility] Last Admin: 03/06/17 09:00 Dose: 1 unit Diphenhydramine HCl (Benadryl) 25 mg IVP Q4 PRN PRN Reason: Itching / Pruritus Last Admin: 03/06/17 11:01 Dose: 25 mg Epoetin Alec (Procrit) 10,000 unit SC MWF [facility] Last Admin: 03/06/17 10:55 Dose: 10,000 unit Ferrous Sulfate (Feosol) 325 mg PO DAILY [facility] Last Admin: 03/06/17 10:55 Dose: 325 mg Meropenem 500 mg/ Sodium (Chloride) 100 mls @ 100 mls/hr IVPB Q12 [facility] Last Admin: 03/06/17 10:55 Dose: 100 mls/hr Insulin Glargine (Lantus) 20 unit SC HS [facility] Last Admin: 03/05/17 21:51 Dose: 20 units Insulin Human Regular (Novolin R) 0 unit SC ACHS [facility] PRN Reason: Protocol Last Admin: 03/06/17 07:30 Dose: Not Given Linezolid (Zyvox) 600 mg PO Q12 [facility] Last Admin: 03/06/17 10:55 Dose: 600 mg Losartan Potassium (Cozaar) 100 mg PO DAILY@1800 [facility] Last Admin: 03/05/17 18:31 Dose: 100 mg Morphine Sulfate (Morphine) 2 mg IVP Q4H PRN PRN Reason: Pain, moderate (4-7) Last Admin: 03/06/17 11:00 Dose: 2 mg Rosuvastatin Calcium (Crestor) 10 mg PO HS [facility] Last Admin: 03/05/17 21:51 Dose: Not Given Saccharomyces Boulardii (Florastor) 250 mg PO DAILY [facility] Last Admin: 03/06/17 11:14 Dose: 250 mg Sevelamer Carbonate (Renvela) 1.6 gm PO TIDCC [facility] Last Admin: 03/06/17 08:48 Dose: 1.6 gm Vitamin A (Vitamin A & D Oint Ud Foilpak) 1 ea TOP BID PRN PRN Reason: Dry skin Last Admin: 02/28/17 19:56 Dose: 1 ea - Labs Labs: 03/06/17 04:04 03/06/17 04:04 PT 11.1 SECONDS (9.7-12.2) 02/12/17 07:14 INR 1.0 02/12/17 07:14 APTT 32 SECONDS (21-34) 02/12/17 07:14 - Constitutional Appears: No Acute Distress, Chronically Ill - Head Exam Head Exam: ATRAUMATIC, NORMAL INSPECTION - Eye Exam Eye Exam: EOMI, Normal appearance - Neck Exam Neck Exam: Normal Inspection. absent: Tenderness - Respiratory Exam Respiratory Exam: Clear to Ausculation Bilateral, NORMAL BREATHING PATTERN - Cardiovascular Exam Cardiovascular Exam: REGULAR RHYTHM, +S1 - GI/Abdominal Exam GI & Abdominal Exam: Soft. absent: Tenderness - Extremities Exam Extremities Exam: Normal Inspection, Tenderness - Neurological Exam Neurological Exam: Alert, CN II-XII Intact - Skin Skin Exam: Dry, Warm Assessment and Plan (1) Type 1 diabetes mellitus with diabetic nephropathy Status: Acute (2) Gangrene of right foot Status: Acute (3) End stage renal disease Status: Acute - Assessment and Plan (Free Text) Plan: Continue same dressings IV ABs Same PD Blood transfusion Discuss with surgery about prospect of wound healing
[2017-03-06] MEDS: (Lantus) Insulin Glargine, Recombinant SC SCH (21:47)
[2017-03-07] MEDS: Acyclovir 5% Oint (15 gm) EXT SCH ×8 (02:30→23:15)
[2017-03-07] MEDS: DiphenhydrAMINE 50 mg/ml Inj IVP PRN ×3 (05:00→22:04)
[2017-03-07] MEDS: (Novolin R) Insulin Human Regular 100 units/ml vial SC SCH ×3 (07:40→22:07)
[2017-03-07] MEDS: Sevelamer Carb 0.8 gm/Packet PO SCH ×3 (08:35→18:22)
[2017-03-07] MEDS: Saccharomyces Boulardi 250 mg Cap PO SCH (10:30)
[2017-03-07] MEDS: Meropenem 500 MG in Sodium Chloride 0.9% 100 ML IVPB SCH ×2 (10:30→22:05)
--- NOTE | 2017-03-07 10:53 | CP.PCM.PN ---
Subjective - Date & Time of Evaluation Date of Evaluation: 03/07/17 Time of Evaluation: 10:51 - Subjective Subjective: PD going well Wounds just dressed by surgery- tissue still viable BP controlled s/p recent blood transfusion no n, v, f, c, diarrhea, CPs Objective - Vital Signs/Intake and Output Vital Signs (last 24 hours): Temp Pulse Resp BP Pulse Ox 98.2 F 91 H 20 120/76 100 03/07/17 08:14 03/07/17 08:14 03/07/17 08:14 03/07/17 10:27 03/07/17 08:14 Intake and Output: 03/07/17 03/07/17 06:59 18:59 Intake Total 490 Balance 490 - Medications Medications: Current Medications Acyclovir (Zovirax 5% Oint) 0 gm EXT Q3H [facility] Last Admin: 03/07/17 08:38 Dose: 1 applic Amlodipine Besylate (Norvasc) 10 mg PO DAILY [facility] Last Admin: 03/07/17 10:31 Dose: 10 mg Aspirin (Ecotrin) 81 mg PO DAILY [facility] Last Admin: 03/07/17 10:28 Dose: 81 mg Carvedilol (Coreg) 12.5 mg PO BID [facility] Last Admin: 03/07/17 10:27 Dose: 12.5 mg Clopidogrel Bisulfate (Plavix) 75 mg PO DAILY [facility] Last Admin: 03/07/17 10:32 Dose: 75 mg Collagenase (Santyl) 1 gm TOP DAILY [facility] Last Admin: 03/06/17 09:00 Dose: 1 applic Diphenhydramine HCl (Benadryl) 25 mg IVP Q4 PRN PRN Reason: Itching / Pruritus Last Admin: 03/07/17 05:00 Dose: 25 mg Epoetin Alec (Procrit) 10,000 unit SC MWF [facility] Last Admin: 03/06/17 10:55 Dose: 10,000 unit Ferrous Sulfate (Feosol) 325 mg PO DAILY [facility] Last Admin: 03/07/17 10:28 Dose: 325 mg Meropenem 500 mg/ Sodium (Chloride) 100 mls @ 100 mls/hr IVPB Q12 [facility] Last Admin: 03/07/17 10:30 Dose: 100 mls/hr Insulin Glargine (Lantus) 20 unit SC HS [facility] Last Admin: 03/06/17 21:47 Dose: 20 units Insulin Human Regular (Novolin R) 0 unit SC ACHS [facility] PRN Reason: Protocol Last Admin: 03/07/17 07:40 Dose: Not Given Linezolid (Zyvox) 600 mg PO Q12 [facility] Last Admin: 03/07/17 10:32 Dose: 600 mg Losartan Potassium (Cozaar) 100 mg PO DAILY@1800 [facility] Last Admin: 03/06/17 18:46 Dose: 100 mg Morphine Sulfate (Morphine) 2 mg IVP Q4H PRN PRN Reason: Pain, moderate (4-7) Last Admin: 03/07/17 04:56 Dose: 2 mg Rosuvastatin Calcium (Crestor) 10 mg PO HS [facility] Last Admin: 03/06/17 22:00 Dose: Not Given Saccharomyces Boulardii (Florastor) 250 mg PO DAILY [facility] Last Admin: 03/07/17 10:30 Dose: 250 mg Sevelamer Carbonate (Renvela) 1.6 gm PO TIDCC [facility] Last Admin: 03/07/17 08:35 Dose: 1.6 gm Vitamin A (Vitamin A & D Oint Ud Foilpak) 1 ea TOP BID PRN PRN Reason: Dry skin Last Admin: 02/28/17 19:56 Dose: 1 ea - Labs Labs: 03/06/17 04:04 03/06/17 04:04 PT 11.1 SECONDS (9.7-12.2) 02/12/17 07:14 INR 1.0 02/12/17 07:14 APTT 32 SECONDS (21-34) 02/12/17 07:14 - Constitutional Appears: No Acute Distress, Chronically Ill - Head Exam Head Exam: ATRAUMATIC, NORMAL INSPECTION - Eye Exam Eye Exam: EOMI, Normal appearance - Neck Exam Neck Exam: Normal Inspection. absent: Tenderness - Respiratory Exam Respiratory Exam: Clear to Ausculation Bilateral, NORMAL BREATHING PATTERN - Cardiovascular Exam Cardiovascular Exam: REGULAR RHYTHM, +S1 - GI/Abdominal Exam GI & Abdominal Exam: Soft. absent: Tenderness - Extremities Exam Extremities Exam: Tenderness. absent: Pedal Edema - Neurological Exam Neurological Exam: Alert, CN II-XII Intact - Skin Skin Exam: Dry, Warm Assessment and Plan (1) Type 1 diabetes mellitus with diabetic nephropathy Status: Acute (2) Gangrene of right foot Status: Acute (3) End stage renal disease Status: Acute - Assessment and Plan (Free Text) Plan: Same PD, IV ABs, wound care
[2017-03-07] MEDS: Collagenase 250 Units/gm Ointment(30 gm) TOP SCH (11:26)
--- NOTE | 2017-03-07 13:24 | CP.PCM.PN ---
Subjective - Date & Time of Evaluation Date of Evaluation: 03/07/17 Time of Evaluation: 09:00 - Subjective Subjective: Podiatry progress note- Dr. Oakley: 51 yo female patient seen at bedside 2 days s/p right foot Lisfranc amp and ulcer to left heel. She says her right foot pain is well controlled, and has no foot pain nor pedal complaints. She denies f/n/v/c/sob/cp/weakness/dizziness today. Objective - Vital Signs/Intake and Output Vital Signs (last 24 hours): Temp Pulse Resp BP Pulse Ox 98.2 F 91 H 20 120/76 100 03/07/17 08:14 03/07/17 08:14 03/07/17 08:14 03/07/17 10:27 03/07/17 08:14 Intake and Output: 03/07/17 03/07/17 06:59 18:59 Intake Total 490 Balance 490 - Medications Medications: Current Medications Acyclovir (Zovirax 5% Oint) 0 gm EXT Q3H [facility] Last Admin: 03/07/17 08:38 Dose: 1 applic Amlodipine Besylate (Norvasc) 10 mg PO DAILY [facility] Last Admin: 03/07/17 10:31 Dose: 10 mg Aspirin (Ecotrin) 81 mg PO DAILY [facility] Last Admin: 03/07/17 10:28 Dose: 81 mg Carvedilol (Coreg) 12.5 mg PO BID [facility] Last Admin: 03/07/17 10:27 Dose: 12.5 mg Clopidogrel Bisulfate (Plavix) 75 mg PO DAILY [facility] Last Admin: 03/07/17 10:32 Dose: 75 mg Collagenase (Santyl) 1 gm TOP DAILY [facility] Last Admin: 03/07/17 11:26 Dose: Not Given Diphenhydramine HCl (Benadryl) 25 mg IVP Q4 PRN PRN Reason: Itching / Pruritus Last Admin: 03/07/17 11:11 Dose: 25 mg Epoetin Alec (Procrit) 10,000 unit SC MWF [facility] Last Admin: 03/06/17 10:55 Dose: 10,000 unit Ferrous Sulfate (Feosol) 325 mg PO DAILY [facility] Last Admin: 03/07/17 10:28 Dose: 325 mg Meropenem 500 mg/ Sodium (Chloride) 100 mls @ 100 mls/hr IVPB Q12 [facility] Last Admin: 03/07/17 10:30 Dose: 100 mls/hr Insulin Glargine (Lantus) 20 unit SC HS [facility] Last Admin: 03/06/17 21:47 Dose: 20 units Insulin Human Regular (Novolin R) 0 unit SC ACHS [facility] PRN Reason: Protocol Last Admin: 03/07/17 11:45 Dose: Not Given Linezolid (Zyvox) 600 mg PO Q12 [facility] Last Admin: 03/07/17 10:32 Dose: 600 mg Losartan Potassium (Cozaar) 100 mg PO DAILY@1800 [facility] Last Admin: 03/06/17 18:46 Dose: 100 mg Morphine Sulfate (Morphine) 2 mg IVP Q4H PRN PRN Reason: Pain, moderate (4-7) Last Admin: 03/07/17 11:11 Dose: 2 mg Rosuvastatin Calcium (Crestor) 10 mg PO HS [facility] Last Admin: 03/06/17 22:00 Dose: Not Given Saccharomyces Boulardii (Florastor) 250 mg PO DAILY [facility] Last Admin: 03/07/17 10:30 Dose: 250 mg Sevelamer Carbonate (Renvela) 1.6 gm PO TIDCC [facility] Last Admin: 03/07/17 12:30 Dose: 1.6 gm Vitamin A (Vitamin A & D Oint Ud Foilpak) 1 ea TOP BID PRN PRN Reason: Dry skin Last Admin: 02/28/17 19:56 Dose: 1 ea - Labs Labs: 03/06/17 04:04 03/06/17 04:04 PT 11.1 SECONDS (9.7-12.2) 02/12/17 07:14 INR 1.0 02/12/17 07:14 APTT 32 SECONDS (21-34) 02/12/17 07:14 - Constitutional Appears: Well, Non-toxic, No Acute Distress - Extremities Exam Additional comments: LE exam: Dressings to both feet appears c/d/i VASC- DP pulse is palpable, PT pulse non-palpable, skin temp runs warm to warm ( from proximal to distal), CFT < 3 sec to amputation flap, no pedal edema DERM- surgical incision site appears mostly well-coapted, however there is some dehisence noted to medial and lateral aspect of wound with slight serous drainage, no malodor, no fluctuance, no cellulitis, no purulence, no evidence of necrosis, distal leg temperature normal, scabbing noted over surgical incision site. Plantar flap lap is stable absent cyanosis or pallor, warm to touch. All sutures remain intact. Superficial ulceration measuring approximately 0.5 cm x 0.5 cm x 0.1 cm noted to left foot posterior heel. No erythema, no drainage, no malodor, no other clinical signs of infection noted. No probe to bone, tracking, tunneling or undermining noted. NEURO- pedal sensation is intact ORTHO- moderate pain to palpation of all aspects of amputation stump - Neurological Exam Neurological Exam: Alert, Awake, Oriented x3 Assessment and Plan - Assessment and Plan (Free Text) Assessment: 51 y/o female patient 1) 22 days s/p right foot Lisfranc amputation 2) Left heel superficial ulceration, uncomplicated. Plan: Pt evaluated and treated at bedside with attending, Dr. Oakley, present. Chart, labs, and vitals reviewed. c/w IV abx as per ID Right foot surgical site flushed copiously with peroxide. Dressed with betadine soaked gauze, ABD, DSD Santyl and DSD applied to left heel ulcer site. Directed pt to continue wearing Multipodus boots while in bed to both lower extremities. Continue strict NWB to bilateral lower extremities. Directed to continue strengthening and reconditioning exercises in bed. Noted pt accepted to [facility], awaiting transfer. Directing for wound care dressing changes to be performed as follows by Dr. Oakley. Right side amputation site dressing change: Done every 12 hours. Hydrogen peroxide light scrub/cleanse. Santyl application and dry sterile dressing arianna wrap. Stable from podiatry standpoint for discharge. Podiatry will continue to follow while inhouse.
[2017-03-07] MEDS: (Lantus) Insulin Glargine, Recombinant SC SCH (22:05)
[2017-03-08] MEDS: Acyclovir 5% Oint (15 gm) EXT SCH ×7 (06:12→23:30)
[2017-03-08] MEDS: (Novolin R) Insulin Human Regular 100 units/ml vial SC SCH ×4 (07:44→21:11)
[2017-03-08] MEDS: Sevelamer Carb 0.8 gm/Packet PO SCH ×3 (08:09→18:14)
[2017-03-08] MEDS: DiphenhydrAMINE 50 mg/ml Inj IVP PRN ×3 (08:09→21:10)
[2017-03-08] MEDS: EPOETIN ALFA 10,000 UNIT/ML ML SC SCH (08:12)
[2017-03-08 08:31] LABS: BASO # 0.1 K/uL (0.0-0.2); BASO % 0.9 % (0.0-2.0); EOS # 0.2 K/uL (0.0-0.7); EOS % 2.2 % (0.0-4.0); HEMATOCRIT 25.4 % (34.0-47.0); LYMPH # 1.7 K/uL (1.0-4.3); LYMPH % 18.3 % (20.0-40.0); MEAN CORPUSCULAR HEMOGLOBIN 30.4 pg (27.0-31.0); MEAN CORPUSCULAR HGB CONC 33.1 g/dL (33.0-37.0); MEAN PLATELET VOLUME 7.7 fL (7.2-11.7); MONO % 10.3 % (0.0-10.0); RED CELL DISTRIBUTION WIDTH 15.2 % (11.5-14.5); WHITE BLOOD COUNT 9.3 K/uL (4.8-10.8)
[2017-03-08] MEDS: Meropenem 500 MG in Sodium Chloride 0.9% 100 ML IVPB SCH ×2 (10:52→21:29)
[2017-03-08] MEDS: Saccharomyces Boulardi 250 mg Cap PO SCH (10:54)
[2017-03-08] MEDS: Collagenase 250 Units/gm Ointment(30 gm) TOP SCH (10:55)
--- NOTE | 2017-03-08 13:32 | CP.PCM.PN ---
Subjective - Date & Time of Evaluation Date of Evaluation: 03/08/17 Time of Evaluation: 13:30 - Subjective Subjective: Appears depressed Wounds about same- evaluated by podiatry PD going well BP controlled No CPs, n, v diarrhea, HAs Hg still low- TSAT -44% Objective - Vital Signs/Intake and Output Vital Signs (last 24 hours): Temp Pulse Resp BP Pulse Ox 98.0 F 92 H 18 125/63 98 03/08/17 08:03 03/08/17 08:03 03/08/17 08:03 03/08/17 10:54 03/08/17 08:03 Intake and Output: 03/08/17 03/08/17 06:59 18:59 Intake Total 400 Balance 400 - Medications Medications: Current Medications Acyclovir (Zovirax 5% Oint) 0 gm EXT Q3H [facility] Last Admin: 03/08/17 10:58 Dose: 1 applic Amlodipine Besylate (Norvasc) 10 mg PO DAILY [facility] Last Admin: 03/08/17 10:54 Dose: 10 mg Aspirin (Ecotrin) 81 mg PO DAILY [facility] Last Admin: 03/08/17 10:54 Dose: 81 mg Carvedilol (Coreg) 12.5 mg PO BID [facility] Last Admin: 03/08/17 10:54 Dose: 12.5 mg Clopidogrel Bisulfate (Plavix) 75 mg PO DAILY [facility] Last Admin: 03/08/17 10:54 Dose: 75 mg Collagenase (Santyl) 1 gm TOP DAILY [facility] Last Admin: 03/08/17 10:55 Dose: Not Given Diphenhydramine HCl (Benadryl) 25 mg IVP Q4 PRN PRN Reason: Itching / Pruritus Last Admin: 03/08/17 12:48 Dose: 25 mg Epoetin Alec (Procrit) 10,000 unit SC MWF [facility] Last Admin: 03/08/17 08:12 Dose: 10,000 unit Ferrous Sulfate (Feosol) 325 mg PO DAILY [facility] Last Admin: 03/08/17 10:54 Dose: 325 mg Meropenem 500 mg/ Sodium (Chloride) 100 mls @ 100 mls/hr IVPB Q12 [facility] Last Admin: 03/08/17 10:52 Dose: 100 mls/hr Insulin Glargine (Lantus) 20 unit SC HS [facility] Last Admin: 03/07/17 22:05 Dose: 20 units Insulin Human Regular (Novolin R) 0 unit SC ACHS [facility] PRN Reason: Protocol Last Admin: 03/08/17 12:34 Dose: Not Given Linezolid (Zyvox) 600 mg PO Q12 [facility] Last Admin: 03/08/17 10:53 Dose: 600 mg Losartan Potassium (Cozaar) 100 mg PO DAILY@1800 [facility] Last Admin: 03/07/17 18:22 Dose: 100 mg Morphine Sulfate (Morphine) 2 mg IVP Q4H PRN PRN Reason: Pain, moderate (4-7) Last Admin: 03/08/17 08:26 Dose: 2 mg Saccharomyces Boulardii (Florastor) 250 mg PO DAILY [facility] Last Admin: 03/08/17 10:54 Dose: 250 mg Sevelamer Carbonate (Renvela) 1.6 gm PO TIDCC [facility] Last Admin: 03/08/17 11:03 Dose: 1.6 gm Vitamin A (Vitamin A & D Oint Ud Foilpak) 1 ea TOP BID PRN PRN Reason: Dry skin Last Admin: 02/28/17 19:56 Dose: 1 ea - Labs Labs: 03/08/17 07:56 03/06/17 04:04 PT 11.1 SECONDS (9.7-12.2) 02/12/17 07:14 INR 1.0 02/12/17 07:14 APTT 32 SECONDS (21-34) 02/12/17 07:14 - Constitutional Appears: No Acute Distress, Chronically Ill - Head Exam Head Exam: ATRAUMATIC, NORMAL INSPECTION - Eye Exam Eye Exam: EOMI, Normal appearance - Neck Exam Neck Exam: Normal Inspection. absent: Tenderness - Respiratory Exam Respiratory Exam: Clear to Ausculation Bilateral, NORMAL BREATHING PATTERN - Cardiovascular Exam Cardiovascular Exam: REGULAR RHYTHM, +S1 - GI/Abdominal Exam GI & Abdominal Exam: Soft. absent: Tenderness - Extremities Exam Extremities Exam: Normal Inspection. absent: Tenderness - Neurological Exam Neurological Exam: Alert, CN II-XII Intact - Skin Skin Exam: Dry, Warm Assessment and Plan (1) Type 1 diabetes mellitus with diabetic nephropathy Status: Acute (2) Gangrene of right foot Status: Acute (3) End stage renal disease Status: Acute - Assessment and Plan (Free Text) Plan: Same PD Same ESAs follow up labs IV ABs Wound care
[2017-03-08] MEDS: (Lantus) Insulin Glargine, Recombinant SC SCH (21:09)
--- NOTE | 2017-03-08 21:34 | CP.PCM.PN ---
Subjective - Date & Time of Evaluation Date of Evaluation: 03/08/17 Time of Evaluation: 21:34 - Subjective Subjective: There is no significant wound healing noted. Not feeling well because of that. Sometimes patient gets upset. Vital signs stable. Continue the current treatment. Objective - Vital Signs/Intake and Output Vital Signs (last 24 hours): Temp Pulse Resp BP Pulse Ox 97.9 F 91 H 22 124/65 97 03/08/17 16:40 03/08/17 16:40 03/08/17 16:40 03/08/17 18:14 03/08/17 16:40 - Medications Medications: Current Medications Acyclovir (Zovirax 5% Oint) 0 gm EXT Q3H [facility] Last Admin: 03/08/17 20:47 Dose: Not Given Amlodipine Besylate (Norvasc) 10 mg PO DAILY [facility] Last Admin: 03/08/17 10:54 Dose: 10 mg Carvedilol (Coreg) 12.5 mg PO BID [facility] Last Admin: 03/08/17 18:14 Dose: 12.5 mg Clopidogrel Bisulfate (Plavix) 75 mg PO DAILY [facility] Last Admin: 03/08/17 10:54 Dose: 75 mg Collagenase (Santyl) 1 gm TOP DAILY [facility] Last Admin: 03/08/17 10:55 Dose: Not Given Diphenhydramine HCl (Benadryl) 25 mg IVP Q4 PRN PRN Reason: Itching / Pruritus Last Admin: 03/08/17 21:10 Dose: 25 mg Ferrous Sulfate (Feosol) 325 mg PO DAILY [facility] Last Admin: 03/08/17 10:54 Dose: 325 mg Meropenem 500 mg/ Sodium (Chloride) 100 mls @ 100 mls/hr IVPB Q12 [facility] Last Admin: 03/08/17 21:29 Dose: 100 mls/hr Insulin Glargine (Lantus) 20 unit SC HS [facility] Last Admin: 03/08/17 21:09 Dose: 20 units Insulin Human Regular (Novolin R) 0 unit SC ACHS [facility] PRN Reason: Protocol Last Admin: 03/08/17 21:11 Dose: Not Given Linezolid (Zyvox) 600 mg PO Q12 [facility] Last Admin: 03/08/17 21:10 Dose: 600 mg Losartan Potassium (Cozaar) 100 mg PO DAILY@1800 [facility] Last Admin: 03/08/17 18:15 Dose: 100 mg Morphine Sulfate (Morphine) 2 mg IVP Q4H PRN PRN Reason: Pain, moderate (4-7) Last Admin: 03/08/17 21:10 Dose: 2 mg Saccharomyces Boulardii (Florastor) 250 mg PO DAILY [facility] Last Admin: 03/08/17 10:54 Dose: 250 mg Sevelamer Carbonate (Renvela) 1.6 gm PO TIDCC [facility] Last Admin: 03/08/17 18:14 Dose: 1.6 gm Vitamin A (Vitamin A & D Oint Ud Foilpak) 1 ea TOP BID PRN PRN Reason: Dry skin Last Admin: 02/28/17 19:56 Dose: 1 ea - Labs Labs: 03/08/17 07:56 03/06/17 04:04 PT 11.1 SECONDS (9.7-12.2) 02/12/17 07:14 INR 1.0 02/12/17 07:14 APTT 32 SECONDS (21-34) 02/12/17 07:14
[2017-03-09] MEDS: Acyclovir 5% Oint (15 gm) EXT SCH ×7 (02:39→23:40)
[2017-03-09] MEDS: DiphenhydrAMINE 50 mg/ml Inj IVP PRN ×3 (06:21→20:58)
[2017-03-09 07:27] LABS: HEMATOCRIT 23.9 % (34.0-47.0); MEAN CELL VOLUME 92.6 fL (81.0-99.0); MEAN CORPUSCULAR HEMOGLOBIN 30.7 pg (27.0-31.0); MEAN CORPUSCULAR HGB CONC 33.2 g/dL (33.0-37.0); MEAN PLATELET VOLUME 7.7 fL (7.2-11.7); RED CELL DISTRIBUTION WIDTH 14.7 % (11.5-14.5); WHITE BLOOD COUNT 9.1 K/uL (4.8-10.8)
[2017-03-09] MEDS: (Novolin R) Insulin Human Regular 100 units/ml vial SC SCH ×4 (07:33→21:41)
[2017-03-09 08:02] LABS: POTASSIUM 4.4 mmol/L (3.6-5.2)
[2017-03-09 08:05] LABS: ALB/GLOB RATIO 0.8 (1.0-2.1); BILIRUBIN,TOTAL 0.4 mg/dL (0.2-1.3); CALCIUM 9.1 mg/dl (8.6-10.4); PHOSPHOROUS 3.4 mg/dL (2.5-4.5); TOTAL PROTEIN 6.4 g/dL (6.3-8.3)
[2017-03-09] MEDS: Sevelamer Carb 0.8 gm/Packet PO SCH ×3 (09:00→18:12)
--- NOTE | 2017-03-09 09:40 | CP.PCM.PN ---
Subjective - Date & Time of Evaluation Date of Evaluation: 03/08/17 Time of Evaluation: 16:00 - Subjective Subjective: DISCUSSED DISPOSITION PLAN WITH CM AND SW. PT INSURANCE COMPANY NOT AUTHORIZING [facility]; [facility] DENIES PT. PODIATRY RECOMMENDATIONS VIEWED AND THEY ARE CLEARING THE PT FROM THEIR STANDPOINT---PT TO CONTINUE ONLY LOCAL/WOUND CARE. STILL PENDING SPECIFIC RECOMMENDATIONS FROM ID--MIXING PAN TENDER LEFT MESSAGE FOR DR. MONTES ON CELL WITHOUT ANY RESPONSE. PT HAS BEEN ON MEROPENEM SINCE 02/19 AND ZYVOX PO SINCE 02/22. MIXING PAN TENDER NOTIFIED DR. CARTER OF THIS. WILL CONTINUE TO CLARIFY ID RECS SO APPROPRIATE D/C CAN BE DONE. NO FURTHER ORDERS. Objective - Vital Signs/Intake and Output Vital Signs (last 24 hours): Temp Pulse Resp BP Pulse Ox 98.2 F 91 H 20 120/60 95 03/09/17 08:00 03/09/17 08:00 03/09/17 08:00 03/09/17 08:00 03/09/17 08:00 Intake and Output: 03/09/17 03/09/17 06:59 18:59 Intake Total 600 Balance 600 - Medications Medications: Current Medications Acyclovir (Zovirax 5% Oint) 0 gm EXT Q3H [facility] Last Admin: 03/09/17 09:03 Dose: 1 applic Amlodipine Besylate (Norvasc) 10 mg PO DAILY [facility] Last Admin: 03/08/17 10:54 Dose: 10 mg Carvedilol (Coreg) 12.5 mg PO BID [facility] Last Admin: 03/08/17 18:14 Dose: 12.5 mg Clopidogrel Bisulfate (Plavix) 75 mg PO DAILY [facility] Last Admin: 03/08/17 10:54 Dose: 75 mg Collagenase (Santyl) 1 gm TOP DAILY [facility] Last Admin: 03/08/17 10:55 Dose: Not Given Diphenhydramine HCl (Benadryl) 25 mg IVP Q4 PRN PRN Reason: Itching / Pruritus Last Admin: 03/09/17 06:21 Dose: 25 mg Ferrous Sulfate (Feosol) 325 mg PO DAILY [facility] Last Admin: 03/08/17 10:54 Dose: 325 mg Meropenem 500 mg/ Sodium (Chloride) 100 mls @ 100 mls/hr IVPB Q12 [facility] Last Admin: 03/08/17 21:29 Dose: 100 mls/hr Insulin Glargine (Lantus) 20 unit SC HS [facility] Last Admin: 03/08/17 21:09 Dose: 20 units Insulin Human Regular (Novolin R) 0 unit SC ACHS [facility] PRN Reason: Protocol Last Admin: 03/09/17 07:33 Dose: Not Given Linezolid (Zyvox) 600 mg PO Q12 [facility] Last Admin: 03/08/17 21:10 Dose: 600 mg Losartan Potassium (Cozaar) 100 mg PO DAILY@1800 [facility] Last Admin: 03/08/17 18:15 Dose: 100 mg Morphine Sulfate (Morphine) 2 mg IVP Q4H PRN PRN Reason: Pain, moderate (4-7) Last Admin: 03/09/17 06:21 Dose: 2 mg Saccharomyces Boulardii (Florastor) 250 mg PO DAILY [facility] Last Admin: 03/08/17 10:54 Dose: 250 mg Sevelamer Carbonate (Renvela) 1.6 gm PO TIDCC [facility] Last Admin: 03/09/17 09:00 Dose: 1.6 gm Vitamin A (Vitamin A & D Oint Ud Foilpak) 1 ea TOP BID PRN PRN Reason: Dry skin Last Admin: 02/28/17 19:56 Dose: 1 ea - Labs Labs: 03/09/17 07:16 03/09/17 07:16 PT 11.1 SECONDS (9.7-12.2) 02/12/17 07:14 INR 1.0 02/12/17 07:14 APTT 32 SECONDS (21-34) 02/12/17 07:14
[2017-03-09] MEDS: Meropenem 500 MG in Sodium Chloride 0.9% 100 ML IVPB SCH ×2 (10:29→21:41)
[2017-03-09] MEDS: Collagenase 250 Units/gm Ointment(30 gm) TOP SCH (10:30)
[2017-03-09] MEDS: Saccharomyces Boulardi 250 mg Cap PO SCH (10:30)
[2017-03-09] MEDS: Ferric Sodium Gluconat Complex 62.5 mg/5 ml Vial IVPB SCH (11:44)
--- NOTE | 2017-03-09 12:45 | CP.PCM.PN ---
Subjective - Date & Time of Evaluation Date of Evaluation: 03/09/17 Time of Evaluation: 12:10 - Subjective Subjective: pain at tma no chest pain no sob no urinary abnormalities no nausea no vomiting mild depression no edema no rash no headache Objective - Vital Signs/Intake and Output Vital Signs (last 24 hours): Temp Pulse Resp BP Pulse Ox 98.2 F 91 H 20 131/67 95 03/09/17 08:00 03/09/17 08:00 03/09/17 08:00 03/09/17 10:29 03/09/17 08:00 Intake and Output: 03/09/17 03/09/17 06:59 18:59 Intake Total 600 Balance 600 - Medications Medications: Current Medications Acyclovir (Zovirax 5% Oint) 0 gm EXT Q3H [facility] Last Admin: 03/09/17 11:53 Dose: Not Given Amlodipine Besylate (Norvasc) 10 mg PO DAILY [facility] Last Admin: 03/09/17 10:30 Dose: 10 mg Carvedilol (Coreg) 12.5 mg PO BID [facility] Last Admin: 03/09/17 10:29 Dose: 12.5 mg Clopidogrel Bisulfate (Plavix) 75 mg PO DAILY [facility] Last Admin: 03/09/17 10:29 Dose: 75 mg Collagenase (Santyl) 1 gm TOP DAILY [facility] Last Admin: 03/09/17 10:30 Dose: Not Given Diphenhydramine HCl (Benadryl) 25 mg IVP Q4 PRN PRN Reason: Itching / Pruritus Last Admin: 03/09/17 06:21 Dose: 25 mg Ferric Sodium Gluconate Complex (Ferrlecit) 125 mg IVPB DAILY [facility] Stop: 03/13/17 10:46 Last Admin: 03/09/17 11:44 Dose: 125 mg Meropenem 500 mg/ Sodium (Chloride) 100 mls @ 100 mls/hr IVPB Q12 [facility] Last Admin: 03/09/17 10:29 Dose: 100 mls/hr Insulin Glargine (Lantus) 20 unit SC HS [facility] Last Admin: 03/08/17 21:09 Dose: 20 units Insulin Human Regular (Novolin R) 0 unit SC ACHS [facility] PRN Reason: Protocol Last Admin: 03/09/17 11:53 Dose: Not Given Linezolid (Zyvox) 600 mg PO Q12 [facility] Last Admin: 03/09/17 10:30 Dose: 600 mg Losartan Potassium (Cozaar) 100 mg PO DAILY@1800 [facility] Last Admin: 03/08/17 18:15 Dose: 100 mg Morphine Sulfate (Morphine) 2 mg IVP Q4H PRN PRN Reason: Pain, moderate (4-7) Saccharomyces Boulardii (Florastor) 250 mg PO DAILY [facility] Last Admin: 03/09/17 10:30 Dose: 250 mg Sevelamer Carbonate (Renvela) 1.6 gm PO TIDCC [facility] Last Admin: 03/09/17 11:45 Dose: 1.6 gm Vitamin A (Vitamin A & D Oint Ud Foilpak) 1 ea TOP BID PRN PRN Reason: Dry skin Last Admin: 02/28/17 19:56 Dose: 1 ea - Labs Labs: 03/09/17 07:16 03/09/17 07:16 PT 11.1 SECONDS (9.7-12.2) 02/12/17 07:14 INR 1.0 02/12/17 07:14 APTT 32 SECONDS (21-34) 02/12/17 07:14 - Constitutional Appears: No Acute Distress, Chronically Ill - Head Exam Head Exam: ATRAUMATIC - Eye Exam Eye Exam: EOMI - ENT Exam ENT Exam: Mucous Membranes Moist - Neck Exam Neck Exam: Full ROM. absent: Lymphadenopathy - Respiratory Exam Respiratory Exam: Clear to Ausculation Bilateral. absent: Accessory Muscle Use - GI/Abdominal Exam GI & Abdominal Exam: Soft, Normal Bowel Sounds - Extremities Exam Extremities Exam: absent: Pedal Edema Additional comments: right tma, bandaged Assessment and Plan - Assessment and Plan (Free Text) Assessment: for iv iron for anemia continue [facility] wound care
--- NOTE | 2017-03-09 16:43 | CP.PCM.PN ---
Subjective - Date & Time of Evaluation Date of Evaluation: 03/09/17 Time of Evaluation: 16:34 - Subjective Subjective: Podiatry progress note- Dr. Oakley: 51 yo female patient seen at bedside 25 days s/p right foot Lisfranc amp and ulcer to left heel. Patient states that she is having pain on her right foot but she is managing it well. She denies of any recent F/N/V/C/SOB/CP. Patient denies of any other pedal complains at this time. Objective - Vital Signs/Intake and Output Vital Signs (last 24 hours): Temp Pulse Resp BP Pulse Ox 98.2 F 91 H 20 131/67 95 03/09/17 08:00 03/09/17 08:00 03/09/17 08:00 03/09/17 10:29 03/09/17 08:00 Intake and Output: 03/09/17 03/09/17 06:59 18:59 Intake Total 600 Balance 600 - Medications Medications: Current Medications Acyclovir (Zovirax 5% Oint) 0 gm EXT Q3H [facility] Last Admin: 03/09/17 15:13 Dose: Not Given Amlodipine Besylate (Norvasc) 10 mg PO DAILY [facility] Last Admin: 03/09/17 10:30 Dose: 10 mg Carvedilol (Coreg) 12.5 mg PO BID [facility] Last Admin: 03/09/17 10:29 Dose: 12.5 mg Clopidogrel Bisulfate (Plavix) 75 mg PO DAILY [facility] Last Admin: 03/09/17 10:29 Dose: 75 mg Collagenase (Santyl) 1 gm TOP DAILY [facility] Last Admin: 03/09/17 10:30 Dose: Not Given Diphenhydramine HCl (Benadryl) 25 mg IVP Q4 PRN PRN Reason: Itching / Pruritus Last Admin: 03/09/17 15:42 Dose: 25 mg Ferric Sodium Gluconate Complex (Ferrlecit) 125 mg IVPB DAILY [facility] Stop: 03/13/17 10:46 Last Admin: 03/09/17 11:44 Dose: 125 mg Meropenem 500 mg/ Sodium (Chloride) 100 mls @ 100 mls/hr IVPB Q12 [facility] Last Admin: 03/09/17 10:29 Dose: 100 mls/hr Insulin Glargine (Lantus) 20 unit SC HS [facility] Last Admin: 03/08/17 21:09 Dose: 20 units Insulin Human Regular (Novolin R) 0 unit SC ACHS [facility] PRN Reason: Protocol Last Admin: 03/09/17 11:53 Dose: Not Given Linezolid (Zyvox) 600 mg PO Q12 [facility] Last Admin: 03/09/17 10:30 Dose: 600 mg Losartan Potassium (Cozaar) 100 mg PO DAILY@1800 [facility] Last Admin: 03/08/17 18:15 Dose: 100 mg Morphine Sulfate (Morphine) 2 mg IVP Q4H PRN PRN Reason: Pain, moderate (4-7) Last Admin: 03/09/17 15:42 Dose: 2 mg Saccharomyces Boulardii (Florastor) 250 mg PO DAILY [facility] Last Admin: 03/09/17 10:30 Dose: 250 mg Sevelamer Carbonate (Renvela) 1.6 gm PO TIDCC [facility] Last Admin: 03/09/17 11:45 Dose: 1.6 gm Vitamin A (Vitamin A & D Oint Ud Foilpak) 1 ea TOP BID PRN PRN Reason: Dry skin Last Admin: 02/28/17 19:56 Dose: 1 ea - Labs Labs: 03/09/17 07:16 03/09/17 07:16 PT 11.1 SECONDS (9.7-12.2) 02/12/17 07:14 INR 1.0 02/12/17 07:14 APTT 32 SECONDS (21-34) 02/12/17 07:14 - Constitutional Appears: Well, Non-toxic, No Acute Distress - Extremities Exam Additional comments: LE exam: Dressings to both feet appears c/d/i VASC- DP pulse is palpable, PT pulse non-palpable, skin temp runs warm to warm ( from proximal to distal), CFT < 3 sec to amputation flap, no pedal edema DERM- surgical incision site appears mostly well-coapted, however there is some dehisence noted to medial and lateral aspect of wound with slight serous drainage, no malodor, no fluctuance, no cellulitis, no purulence, no evidence of necrosis, distal leg temperature normal, scabbing noted over surgical incision site. Plantar flap lap is stable absent cyanosis or pallor, warm to touch. All sutures remain intact. Superficial ulceration measuring approximately 0.5 cm x 0.5 cm x 0.1 cm noted to left foot posterior heel. No erythema, no drainage, no malodor, no other clinical signs of infection noted. No probe to bone, tracking, tunneling or undermining noted. NEURO- pedal sensation is intact ORTHO- moderate pain to palpation of all aspects of amputation stump - Neurological Exam Neurological Exam: Alert, Awake, Oriented x3 - Psychiatric Exam Psychiatric exam: Normal Affect, Normal Mood Assessment and Plan - Assessment and Plan (Free Text) Assessment: 51 y/o female patient 1) 25 days s/p right foot Lisfranc amputation 2) Left heel superficial ulceration, uncomplicated. Plan: Pt evaluated and treated at bedside. Discussed with attending, Dr. Oakley, whom endorsed the following plan. Chart, labs, and vitals reviewed. c/w IV abx as per ID Right foot surgical site flushed copiously with peroxide. Dressed with betadine soaked gauze, ABD, DSD Santyl and DSD applied to left heel ulcer site. Discussed with patient need to allow nursing staff to perform nighttime dressing change which is being performed with specific instruction and detailed steps by Dr. Oakley. Pt amenable and agrees to allow nursing staff to perform dressing change. Directed pt to continue wearing Multipodus boots while in bed to both lower extremities. - Educated the importance of wearing the boots - seen without having them on this morning. Continue strict NWB to bilateral lower extremities Continue strengthening and reconditioning exercises in bed Awaiting [facility] placement. Podiatry will continue to follow while inhouse.
[2017-03-09] MEDS: (Lantus) Insulin Glargine, Recombinant SC SCH (21:40)
[2017-03-10] MEDS: DiphenhydrAMINE 50 mg/ml Inj IVP PRN ×5 (01:03→20:22)
[2017-03-10] MEDS: Acyclovir 5% Oint (15 gm) EXT SCH ×8 (05:18→23:15)
[2017-03-10] MEDS: (Novolin R) Insulin Human Regular 100 units/ml vial SC SCH ×4 (07:30→21:07)
[2017-03-10] MEDS: Saccharomyces Boulardi 250 mg Cap PO SCH (10:32)
[2017-03-10] MEDS: Ferric Sodium Gluconat Complex 62.5 mg/5 ml Vial IVPB SCH (10:34)
[2017-03-10] MEDS: Sevelamer Carb 0.8 gm/Packet PO SCH ×3 (10:37→18:06)
[2017-03-10] MEDS: Collagenase 250 Units/gm Ointment(30 gm) TOP SCH (10:39)
[2017-03-10] MEDS: Meropenem 500 MG in Sodium Chloride 0.9% 100 ML IVPB SCH ×2 (11:50→21:19)
--- NOTE | 2017-03-10 13:35 | CP.PCM.PN ---
Subjective - Date & Time of Evaluation Date of Evaluation: 03/10/17 Time of Evaluation: 13:32 - Subjective Subjective: Podiatry progress note- Dr. Oakley: 51 yo female patient seen at bedside 26 days s/p right foot Lisfranc amp and ulcer to left heel. Patient states that she is having pain on her right foot but she is managing it well. Patient states that she did not sleep well because she had pain. She denies of any recent F/N/V/C/SOB/CP. Patient denies of any other pedal complains at this time. Objective - Vital Signs/Intake and Output Vital Signs (last 24 hours): Temp Pulse Resp BP Pulse Ox 97.8 F 100 H 20 142/76 95 03/10/17 08:12 03/10/17 10:35 03/10/17 08:12 03/10/17 10:35 03/10/17 08:12 Intake and Output: 03/10/17 03/10/17 06:59 18:59 Intake Total 850 Balance 850 - Medications Medications: Current Medications Acetaminophen (Tylenol 325mg Tab) 650 mg PO Q6 PRN PRN Reason: Pain, Mild (1-3) Last Admin: 03/09/17 20:59 Dose: 650 mg Acyclovir (Zovirax 5% Oint) 0 gm EXT Q3H [facility] Last Admin: 03/10/17 10:44 Dose: Not Given Amlodipine Besylate (Norvasc) 10 mg PO DAILY [facility] Last Admin: 03/10/17 10:34 Dose: 10 mg Carvedilol (Coreg) 12.5 mg PO BID [facility] Last Admin: 03/10/17 10:32 Dose: 12.5 mg Clopidogrel Bisulfate (Plavix) 75 mg PO DAILY [facility] Last Admin: 03/10/17 10:32 Dose: 75 mg Collagenase (Santyl) 1 gm TOP DAILY [facility] Last Admin: 03/10/17 10:39 Dose: 1 applic Diphenhydramine HCl (Benadryl) 25 mg IVP Q4 PRN PRN Reason: Itching / Pruritus Last Admin: 03/10/17 10:35 Dose: 25 mg Ferric Sodium Gluconate Complex (Ferrlecit) 125 mg IVPB DAILY [facility] Stop: 03/13/17 10:46 Last Admin: 03/10/17 10:34 Dose: 125 mg Meropenem 500 mg/ Sodium (Chloride) 100 mls @ 100 mls/hr IVPB Q12 [facility] Last Admin: 03/10/17 11:50 Dose: 100 mls/hr Insulin Glargine (Lantus) 20 unit SC HS [facility] Last Admin: 03/09/17 21:40 Dose: 20 units Insulin Human Regular (Novolin R) 0 unit SC ACHS [facility] PRN Reason: Protocol Last Admin: 03/10/17 12:52 Dose: Not Given Linezolid (Zyvox) 600 mg PO Q12 [facility] Last Admin: 03/10/17 10:37 Dose: 600 mg Losartan Potassium (Cozaar) 100 mg PO DAILY@1800 [facility] Last Admin: 03/09/17 18:15 Dose: 100 mg Morphine Sulfate (Morphine) 2 mg IVP Q4H PRN PRN Reason: Pain, moderate (4-7) Last Admin: 03/10/17 10:35 Dose: 2 mg Saccharomyces Boulardii (Florastor) 250 mg PO DAILY [facility] Last Admin: 03/10/17 10:32 Dose: 250 mg Sevelamer Carbonate (Renvela) 1.6 gm PO TIDCC [facility] Last Admin: 03/10/17 12:52 Dose: 1.6 gm Vitamin A (Vitamin A & D Oint Ud Foilpak) 1 ea TOP BID PRN PRN Reason: Dry skin Last Admin: 02/28/17 19:56 Dose: 1 ea - Labs Labs: 03/09/17 07:16 03/09/17 07:16 PT 11.1 SECONDS (9.7-12.2) 02/12/17 07:14 INR 1.0 02/12/17 07:14 APTT 32 SECONDS (21-34) 02/12/17 07:14 - Constitutional Appears: Well, Non-toxic, No Acute Distress - Extremities Exam Additional comments: Dressings to both feet appears c/d/i VASC- DP pulse is palpable, PT pulse non-palpable, skin temp runs warm to warm ( from proximal to distal), CFT < 3 sec to amputation flap, no pedal edema DERM- surgical incision site appears mostly well-coapted, however there is some dehisence noted to medial and lateral aspect of wound with slight serous drainage, no malodor, no fluctuance, no cellulitis, no purulence, no evidence of necrosis, distal leg temperature normal, scabbing noted over surgical incision site. Plantar flap lap is stable absent cyanosis or pallor, warm to touch. All sutures remain intact. Superficial ulceration measuring approximately 0.5 cm x 0.5 cm x 0.1 cm noted to left foot posterior heel. No erythema, no drainage, no malodor, no other clinical signs of infection noted. No probe to bone, tracking, tunneling or undermining noted. NEURO- pedal sensation is intact ORTHO- moderate pain to palpation of all aspects of amputation stump - Neurological Exam Neurological Exam: Alert, Awake, Oriented x3 - Psychiatric Exam Psychiatric exam: Normal Affect, Normal Mood Assessment and Plan - Assessment and Plan (Free Text) Assessment: 51 y/o female patient 1) 26 days s/p right foot Lisfranc amputation 2) Left heel superficial ulceration, uncomplicated. Plan: Pt evaluated and treated at bedside. Discussed with attending, Dr. Oakley, whom endorsed the following plan. Chart, labs, and vitals reviewed. - afebrile and WBC @ 9.1 as of yesterday c/w IV abx as per ID Right foot surgical site flushed copiously with peroxide. Dressed with betadine soaked gauze, ABD, DSD DSD applied to left heel ulcer site - patient denied of using kerlix because it is bulky Discussed with patient need to allow nursing staff to perform nighttime dressing change which is being performed with specific instruction and detailed steps by Dr. Oakley. Pt amenable and agrees to allow nursing staff to perform dressing change. Directed pt to continue wearing Multipodus boots while in bed to both lower extremities. - Educated the importance of wearing the boots - seen without having them on this morning. Continue strict NWB to bilateral lower extremities Continue strengthening and reconditioning exercises in bed Awaiting [facility] placement. Podiatry will continue to follow while inhouse.
--- NOTE | 2017-03-10 17:28 | CP.PCM.PN ---
Subjective - Date & Time of Evaluation Date of Evaluation: 03/10/17 Time of Evaluation: 08:00 - Subjective Subjective: still with some dehicense of wound await dr lou re-eval tolerating IV antibiotics seen at bedside 26 days s/p right foot Lisfranc amp and ulcer to left heel. Objective - Vital Signs/Intake and Output Vital Signs (last 24 hours): Temp Pulse Resp BP Pulse Ox 97.8 F 100 H 20 142/76 95 03/10/17 08:12 03/10/17 10:35 03/10/17 08:12 03/10/17 10:35 03/10/17 08:12 Intake and Output: 03/10/17 03/10/17 06:59 18:59 Intake Total 850 Balance 850 - Medications Medications: Current Medications Acetaminophen (Tylenol 325mg Tab) 650 mg PO Q6 PRN PRN Reason: Pain, Mild (1-3) Last Admin: 03/09/17 20:59 Dose: 650 mg Acyclovir (Zovirax 5% Oint) 0 gm EXT Q3H [facility] Last Admin: 03/10/17 10:44 Dose: Not Given Amlodipine Besylate (Norvasc) 10 mg PO DAILY [facility] Last Admin: 03/10/17 10:34 Dose: 10 mg Carvedilol (Coreg) 12.5 mg PO BID [facility] Last Admin: 03/10/17 10:32 Dose: 12.5 mg Clopidogrel Bisulfate (Plavix) 75 mg PO DAILY [facility] Last Admin: 03/10/17 10:32 Dose: 75 mg Collagenase (Santyl) 1 gm TOP DAILY [facility] Last Admin: 03/10/17 10:39 Dose: 1 applic Diphenhydramine HCl (Benadryl) 25 mg IVP Q4 PRN PRN Reason: Itching / Pruritus Last Admin: 03/10/17 16:04 Dose: 25 mg Ferric Sodium Gluconate Complex (Ferrlecit) 125 mg IVPB DAILY [facility] Stop: 03/13/17 10:46 Last Admin: 03/10/17 10:34 Dose: 125 mg Meropenem 500 mg/ Sodium (Chloride) 100 mls @ 100 mls/hr IVPB Q12 [facility] Last Admin: 03/10/17 11:50 Dose: 100 mls/hr Insulin Glargine (Lantus) 20 unit SC HS [facility] Last Admin: 03/09/17 21:40 Dose: 20 units Insulin Human Regular (Novolin R) 0 unit SC ACHS [facility] PRN Reason: Protocol Last Admin: 03/10/17 17:02 Dose: Not Given Linezolid (Zyvox) 600 mg PO Q12 [facility] Last Admin: 03/10/17 10:37 Dose: 600 mg Losartan Potassium (Cozaar) 100 mg PO DAILY@1800 [facility] Last Admin: 03/09/17 18:15 Dose: 100 mg Morphine Sulfate (Morphine) 2 mg IVP Q4H PRN PRN Reason: Pain, moderate (4-7) Last Admin: 03/10/17 16:04 Dose: 2 mg Saccharomyces Boulardii (Florastor) 250 mg PO DAILY [facility] Last Admin: 03/10/17 10:32 Dose: 250 mg Sevelamer Carbonate (Renvela) 1.6 gm PO TIDCC [facility] Last Admin: 03/10/17 12:52 Dose: 1.6 gm Vitamin A (Vitamin A & D Oint Ud Foilpak) 1 ea TOP BID PRN PRN Reason: Dry skin Last Admin: 02/28/17 19:56 Dose: 1 ea - Labs Labs: 03/09/17 07:16 03/09/17 07:16 PT 11.1 SECONDS (9.7-12.2) 02/12/17 07:14 INR 1.0 02/12/17 07:14 APTT 32 SECONDS (21-34) 02/12/17 07:14 - Constitutional Appears: Non-toxic, Chronically Ill - Head Exam Head Exam: NORMOCEPHALIC - Eye Exam Eye Exam: PERRL - ENT Exam ENT Exam: Mucous Membranes Dry - Neck Exam Neck Exam: absent: Lymphadenopathy - Respiratory Exam Respiratory Exam: Decreased Breath Sounds - Cardiovascular Exam Cardiovascular Exam: REGULAR RHYTHM, +S1, +S2 - GI/Abdominal Exam GI & Abdominal Exam: Distended - Rectal Exam Rectal Exam: Deferred - Exam Exam: NORMAL INSPECTION Assessment and Plan (1) Gangrene of right foot Status: Acute (2) Chronic anemia Status: Acute (3) Chronic congestive heart failure Status: Acute (4) Diabetes mellitus Status: Acute (5) ESRD on peritoneal dialysis Status: Acute - Assessment and Plan (Free Text) Assessment: poor prognosis may need BKA
[2017-03-10] MEDS: (Lantus) Insulin Glargine, Recombinant SC SCH (21:17)
[2017-03-11] MEDS: DiphenhydrAMINE 50 mg/ml Inj IVP PRN ×4 (00:43→21:52)
[2017-03-11] MEDS: Acyclovir 5% Oint (15 gm) EXT SCH ×8 (02:15→23:15)
[2017-03-11] MEDS: Sevelamer Carb 0.8 gm/Packet PO SCH ×3 (09:46→17:20)
[2017-03-11] MEDS: Saccharomyces Boulardi 250 mg Cap PO SCH (09:47)
[2017-03-11] MEDS: Meropenem 500 MG in Sodium Chloride 0.9% 100 ML IVPB SCH (09:48)
[2017-03-11] MEDS: Morphine 4 MG/ML VIAL IVP PRN ×2 (09:48→21:52)
[2017-03-11] MEDS: Collagenase 250 Units/gm Ointment(30 gm) TOP SCH (10:00)
[2017-03-11] MEDS: Ferric Sodium Gluconat Complex 62.5 mg/5 ml Vial IVPB SCH (10:58)
--- NOTE | 2017-03-11 11:48 | CP.PCM.PN ---
Subjective - Date & Time of Evaluation Date of Evaluation: 03/11/17 Time of Evaluation: 11:46 - Subjective Subjective: Running out of PD supplies- will request further supplies fron Tad Meanwhile will order CAPD right foot wound poorly healing; pt not considering BKA though Hg still low- will reorder ESAs; on IV fe now HTN controlled Objective - Vital Signs/Intake and Output Vital Signs (last 24 hours): Temp Pulse Resp BP Pulse Ox 98.0 F 102 H 20 149/76 95 03/11/17 08:46 03/11/17 09:46 03/11/17 08:46 03/11/17 09:47 03/11/17 08:46 Intake and Output: 03/11/17 03/11/17 06:59 18:59 Intake Total 600 Balance 600 - Medications Medications: Current Medications Acetaminophen (Tylenol 325mg Tab) 650 mg PO Q6 PRN PRN Reason: Pain, Mild (1-3) Last Admin: 03/09/17 20:59 Dose: 650 mg Acyclovir (Zovirax 5% Oint) 0 gm EXT Q3H [facility] Last Admin: 03/11/17 08:15 Dose: 1 applic Amlodipine Besylate (Norvasc) 10 mg PO DAILY [facility] Last Admin: 03/11/17 09:53 Dose: 10 mg Carvedilol (Coreg) 12.5 mg PO BID [facility] Last Admin: 03/11/17 09:47 Dose: 12.5 mg Clopidogrel Bisulfate (Plavix) 75 mg PO DAILY [facility] Last Admin: 03/11/17 09:48 Dose: 75 mg Collagenase (Santyl) 1 gm TOP DAILY [facility] Last Admin: 03/10/17 10:39 Dose: 1 applic Diphenhydramine HCl (Benadryl) 25 mg IVP Q4 PRN PRN Reason: Itching / Pruritus Last Admin: 03/11/17 06:10 Dose: 25 mg Epoetin Alec (Procrit) 10,000 unit SC F [facility] Ferric Sodium Gluconate Complex (Ferrlecit) 125 mg IVPB DAILY [facility] Stop: 03/13/17 10:46 Last Admin: 03/10/17 10:34 Dose: 125 mg Hydromorphone HCl (Dilaudid) 0.5 mg IVP Q6H PRN PRN Reason: Pain, severe (8-10) Meropenem 500 mg/ Sodium (Chloride) 100 mls @ 100 mls/hr IVPB Q12 [facility] Last Admin: 03/11/17 09:48 Dose: 100 mls/hr Insulin Glargine (Lantus) 20 unit SC HS [facility] Last Admin: 03/10/17 21:17 Dose: 20 units Insulin Human Regular (Novolin R) 0 unit SC ACHS [facility] PRN Reason: Protocol Last Admin: 03/10/17 21:07 Dose: Not Given Linezolid (Zyvox) 600 mg PO Q12 [facility] Last Admin: 03/11/17 09:46 Dose: 600 mg Losartan Potassium (Cozaar) 100 mg PO DAILY@1800 [facility] Last Admin: 03/10/17 18:06 Dose: 100 mg Morphine Sulfate (Morphine) 2 mg IVP Q4H PRN PRN Reason: Pain, moderate (4-7) Last Admin: 03/11/17 09:48 Dose: 2 mg Saccharomyces Boulardii (Florastor) 250 mg PO DAILY [facility] Last Admin: 03/11/17 09:47 Dose: 250 mg Sevelamer Carbonate (Renvela) 1.6 gm PO TIDCC [facility] Last Admin: 03/11/17 09:46 Dose: 1.6 gm Vitamin A (Vitamin A & D Oint Ud Foilpak) 1 ea TOP BID PRN PRN Reason: Dry skin Last Admin: 02/28/17 19:56 Dose: 1 ea - Labs Labs: 03/09/17 07:16 03/09/17 07:16 PT 11.1 SECONDS (9.7-12.2) 02/12/17 07:14 INR 1.0 02/12/17 07:14 APTT 32 SECONDS (21-34) 02/12/17 07:14 - Constitutional Appears: No Acute Distress, Chronically Ill - Head Exam Head Exam: ATRAUMATIC, NORMAL INSPECTION - Eye Exam Eye Exam: EOMI, Normal appearance - Neck Exam Neck Exam: Normal Inspection. absent: Tenderness - Respiratory Exam Respiratory Exam: Clear to Ausculation Bilateral, NORMAL BREATHING PATTERN - Cardiovascular Exam Cardiovascular Exam: REGULAR RHYTHM, +S1 - GI/Abdominal Exam GI & Abdominal Exam: Soft. absent: Tenderness - Extremities Exam Extremities Exam: Tenderness - Neurological Exam Neurological Exam: Alert, CN II-XII Intact - Skin Skin Exam: Dry, Warm Assessment and Plan (1) Type 1 diabetes mellitus with diabetic nephropathy Status: Acute (2) Gangrene of right foot Status: Acute (3) End stage renal disease Status: Acute - Assessment and Plan (Free Text) Plan: trial CAPD IVABs IV fe and ESAs pain care wound management
[2017-03-11] MEDS: HYDROmorphone 0.5 mg/0.5 ml ISec IVP PRN ×2 (12:52→17:19)
[2017-03-11] MEDS: (Novolin R) Insulin Human Regular 100 units/ml vial SC SCH ×4 (14:22→21:43)
--- NOTE | 2017-03-11 20:24 | CP.PCM.PN ---
Subjective - Date & Time of Evaluation Date of Evaluation: 03/11/17 Time of Evaluation: 18:00 - Subjective Subjective: Podiatry progress note- Dr. Oakley: 51 y/o female patient seen at bedside 27 days s/p right foot Lisfranc amp and ulcer to left heel. Patient states that she is having pain on her right foot but she is managing it well. She denies of any recent F/N/V/C/SOB/CP. Patient denies of any other pedal complains at this time. Objective - Vital Signs/Intake and Output Vital Signs (last 24 hours): Temp Pulse Resp BP Pulse Ox 97.9 F 107 H 20 132/79 96 03/11/17 15:37 03/11/17 15:37 03/11/17 15:37 03/11/17 17:20 03/11/17 15:37 Intake and Output: 03/11/17 03/12/17 18:59 06:59 Intake Total 600 Balance 600 - Medications Medications: Current Medications Acetaminophen (Tylenol 325mg Tab) 650 mg PO Q6 PRN PRN Reason: Pain, Mild (1-3) Last Admin: 03/09/17 20:59 Dose: 650 mg Acyclovir (Zovirax 5% Oint) 0 gm EXT Q3H [facility] [place] Last Admin: 03/11/17 18:46 Dose: Not Given Amlodipine Besylate (Norvasc) 10 mg PO DAILY [facility] [place] Last Admin: 03/11/17 09:53 Dose: 10 mg Carvedilol (Coreg) 12.5 mg PO BID [facility] [place] Last Admin: 03/11/17 17:20 Dose: 12.5 mg Clopidogrel Bisulfate (Plavix) 75 mg PO DAILY [facility] [place] Last Admin: 03/11/17 09:48 Dose: 75 mg Collagenase (Santyl) 1 gm TOP DAILY [facility] [place] Last Admin: 03/10/17 10:39 Dose: 1 applic Diphenhydramine HCl (Benadryl) 25 mg IVP Q4 PRN PRN Reason: Itching / Pruritus Last Admin: 03/11/17 06:10 Dose: 25 mg Epoetin Alec (Procrit) 10,000 unit SC F [facility] [place] Ferric Sodium Gluconate Complex (Ferrlecit) 125 mg IVPB DAILY [facility] [place] Stop: 03/13/17 10:46 Last Admin: 03/11/17 10:58 Dose: 125 mg Hydromorphone HCl (Dilaudid) 0.5 mg IVP Q6H PRN PRN Reason: Pain, severe (8-10) Last Admin: 03/11/17 17:19 Dose: 0.5 mg Meropenem 500 mg/ Sodium (Chloride) 100 mls @ 100 mls/hr IVPB Q24H [facility] [place] Insulin Glargine (Lantus) 20 unit SC HS [facility] [place] Last Admin: 03/10/17 21:17 Dose: 20 units Insulin Human Regular (Novolin R) 0 unit SC ACHS [facility] PRN Reason: Protocol Last Admin: 03/11/17 18:45 Dose: Not Given Linezolid (Zyvox) 600 mg PO Q12 [facility] [place] Last Admin: 03/11/17 09:46 Dose: 600 mg Losartan Potassium (Cozaar) 100 mg PO DAILY@1800 [facility] [place] Last Admin: 03/11/17 17:20 Dose: 100 mg Morphine Sulfate (Morphine) 2 mg IVP Q4H PRN PRN Reason: Pain, moderate (4-7) Last Admin: 03/11/17 09:48 Dose: 2 mg Saccharomyces Boulardii (Florastor) 250 mg PO DAILY [facility] [place] Last Admin: 03/11/17 09:47 Dose: 250 mg Sevelamer Carbonate (Renvela) 1.6 gm PO TIDCC [facility] [place] Last Admin: 03/11/17 17:20 Dose: 1.6 gm Vitamin A (Vitamin A & D Oint Ud Foilpak) 1 ea TOP BID PRN PRN Reason: Dry skin Last Admin: 02/28/17 19:56 Dose: 1 ea - Labs Labs: 03/09/17 07:16 03/09/17 07:16 PT 11.1 SECONDS (9.7-12.2) 02/12/17 07:14 INR 1.0 02/12/17 07:14 APTT 32 SECONDS (21-34) 02/12/17 07:14 - Constitutional Appears: Well, Non-toxic, No Acute Distress - Extremities Exam Additional comments: Dressings to both feet appears c/d/i VASC- DP pulse is palpable, PT pulse non-palpable, skin temp runs warm to warm ( from proximal to distal), CFT < 3 sec to amputation flap, no pedal edema DERM- surgical incision site moderatly dehisenced to medial and lateral aspect of wound, approximately 60% of surgical site showing dehiscience with slight serous drainage, no malodor, no fluctuance, no cellulitis, no purulence, no evidence of necrosis, distal leg temperature normal, scabbing noted over surgical incision site. Plantar flap lap is stable absent cyanosis, though increased pallor noted. Flap is cool to touch. All sutures remain intact. Superficial ulceration measuring approximately 0.5 cm x 0.5 cm x 0.1 cm noted to left foot posterior heel. No erythema, no drainage, no malodor, no other clinical signs of infection noted. No probe to bone, tracking, tunneling or undermining noted. NEURO- pedal sensation is intact ORTHO- moderate pain to palpation of all aspects of amputation stump Assessment and Plan - Assessment and Plan (Free Text) Assessment: 51 y/o female patient 1) 27 days s/p right foot Lisfranc amputation 2) Left heel superficial ulceration, uncomplicated. Plan: Pt evaluated and treated at bedside. Discussed with attending, Dr. Oakley, whom endorsed the following plan. Chart, labs, and vitals reviewed. - afebrile absent leukocytosis. c/w IV abx as per ID, who notes poor prognosis. Right foot surgical site flushed copiously with peroxide. Dressed with betadine soaked gauze, ABD, DSD Left heel reepitheliazing wound left open to air. Discussed with patient need to allow nursing staff to perform nighttime dressing change which is being performed with specific instruction and detailed steps by Dr. Oakley. Pt amenable and agrees to allow nursing staff to perform dressing change. Directed pt to continue wearing Multipodus boots while in bed to both lower extremities. - Educated the importance of wearing the boots - seen without having them on this morning. Continue strict NWB to bilateral lower extremities Continue strengthening and reconditioning exercises strictly in bed. Awaiting [place] placement. Podiatry will continue to follow while inhouse.
[2017-03-11] MEDS: (Lantus) Insulin Glargine, Recombinant SC SCH (22:14)
[2017-03-11] MEDS ORDERED: (Lantus) Insulin Glargine, Recombinant SC ONE (22:16)
[2017-03-12] MEDS: Acyclovir 5% Oint (15 gm) EXT SCH ×7 (02:46→23:54)
[2017-03-12] MEDS: HYDROmorphone 0.5 mg/0.5 ml ISec IVP PRN ×2 (04:26→16:53)
[2017-03-12] MEDS: (Novolin R) Insulin Human Regular 100 units/ml vial SC SCH ×4 (07:38→21:20)
[2017-03-12] MEDS: Sevelamer Carb 0.8 gm/Packet PO SCH ×3 (08:26→18:30)
[2017-03-12] MEDS: Saccharomyces Boulardi 250 mg Cap PO SCH (10:52)
[2017-03-12] MEDS: Ferric Sodium Gluconat Complex 62.5 mg/5 ml Vial IVPB SCH (10:52)
[2017-03-12] MEDS: Meropenem 500 MG in Sodium Chloride 0.9% 100 ML IVPB SCH (10:52)
--- NOTE | 2017-03-12 10:57 | CP.PCM.PN ---
Subjective - Date & Time of Evaluation Date of Evaluation: 03/12/17 Time of Evaluation: 10:54 - Subjective Subjective: Pt is clinically same. Objective - Vital Signs/Intake and Output Vital Signs (last 24 hours): Temp Pulse Resp BP Pulse Ox 97.9 F 93 H 20 118/61 97 03/12/17 08:00 03/12/17 08:00 03/12/17 08:00 03/12/17 08:00 03/12/17 08:00 Intake and Output: 03/12/17 03/12/17 06:59 18:59 Intake Total 600 Balance 600 - Medications Medications: Current Medications Acetaminophen (Tylenol 325mg Tab) 650 mg PO Q6 PRN PRN Reason: Pain, Mild (1-3) Last Admin: 03/09/17 20:59 Dose: 650 mg Acyclovir (Zovirax 5% Oint) 0 gm EXT Q3H [facility] Last Admin: 03/12/17 08:30 Dose: 1 applic Amlodipine Besylate (Norvasc) 10 mg PO DAILY [facility] Last Admin: 03/11/17 09:53 Dose: 10 mg Carvedilol (Coreg) 12.5 mg PO BID [facility] Last Admin: 03/11/17 17:20 Dose: 12.5 mg Clopidogrel Bisulfate (Plavix) 75 mg PO DAILY [facility] Last Admin: 03/11/17 09:48 Dose: 75 mg Collagenase (Santyl) 1 gm TOP DAILY [facility] Last Admin: 03/11/17 10:00 Dose: 1 applic Diphenhydramine HCl (Benadryl) 25 mg IVP Q4 PRN PRN Reason: Itching / Pruritus Last Admin: 03/11/17 21:52 Dose: 25 mg Epoetin Alec (Procrit) 10,000 unit SC [facility] [place] Ferric Sodium Gluconate Complex (Ferrlecit) 125 mg IVPB DAILY [facility] Stop: 03/13/17 10:46 Last Admin: 03/11/17 10:58 Dose: 125 mg Hydromorphone HCl (Dilaudid) 0.5 mg IVP Q6H PRN PRN Reason: Pain, severe (8-10) Last Admin: 03/12/17 04:26 Dose: 0.5 mg Meropenem 500 mg/ Sodium (Chloride) 100 mls @ 100 mls/hr IVPB Q24H [facility] Insulin Glargine (Lantus) 20 unit SC HS [facility] Last Admin: 03/11/17 22:14 Dose: Not Given Insulin Human Regular (Novolin R) 0 unit SC ACHS [facility] PRN Reason: Protocol Last Admin: 03/12/17 07:38 Dose: Not Given Linezolid (Zyvox) 600 mg PO Q12 [facility] Last Admin: 03/11/17 21:51 Dose: 600 mg Losartan Potassium (Cozaar) 100 mg PO DAILY@1800 [facility] Last Admin: 03/11/17 17:20 Dose: 100 mg Morphine Sulfate (Morphine) 2 mg IVP Q4H PRN PRN Reason: Pain, moderate (4-7) Last Admin: 03/11/17 21:52 Dose: 2 mg Saccharomyces Boulardii (Florastor) 250 mg PO DAILY [facility] Last Admin: 03/11/17 09:47 Dose: 250 mg Sevelamer Carbonate (Renvela) 1.6 gm PO TIDCC [facility] Last Admin: 03/12/17 08:26 Dose: 1.6 gm Vitamin A (Vitamin A & D Oint Ud Foilpak) 1 ea TOP BID PRN PRN Reason: Dry skin Last Admin: 02/28/17 19:56 Dose: 1 ea - Labs Labs: 03/09/17 07:16 03/09/17 07:16 PT 11.1 SECONDS (9.7-12.2) 02/12/17 07:14 INR 1.0 02/12/17 07:14 APTT 32 SECONDS (21-34) 02/12/17 07:14 - Constitutional Appears: Well, Non-toxic, No Acute Distress - Extremities Exam Additional comments: Dressings to both feet appears c/d/i VASC- DP pulse is palpable, PT pulse non-palpable, skin temp runs warm to warm ( from proximal to distal), CFT < 3 sec to amputation flap, no pedal edema DERM- surgical incision site moderatly dehisenced to medial and lateral aspect of wound, approximately 60% of surgical site showing dehiscience with slight serous drainage, no malodor, no fluctuance, no cellulitis, no purulence, no evidence of necrosis, distal leg temperature normal, scabbing noted over surgical incision site. Plantar flap lap is stable absent cyanosis, though increased pallor noted. Flap is cool to touch. All sutures remain intact. Superficial ulceration measuring approximately 0.5 cm x 0.5 cm x 0.1 cm noted to left foot posterior heel. No erythema, no drainage, no malodor, no other clinical signs of infection noted. No probe to bone, tracking, tunneling or undermining noted. NEURO- pedal sensation is intact ORTHO- moderate pain to palpation of all aspects of amputation stump Assessment and Plan - Assessment and Plan (Free Text) Assessment: 51 year ol female s/p 28 days Right foot lisfranc amputation, with surgical site wound complication. Plan: Pt evaluated and treated at bedside. with attending, Dr. Ordonez, whom endorsed the following plan. Chart, labs, and vitals reviewed. - afebrile absent leukocytosis. c/w IV abx as per ID. Right foot surgical site flushed copiously with peroxide. Dressed with betadine soaked gauze, ABD, DSD Wound site evaluated, due to dehiscience wound debridement indicated. . Pt to go to OR tomorrow for revisional right foot wound debridement. Medical clearnace appreciated. Pt placed NPO @ midnight. Left heel reepitheliazing wound left open to air. Directed pt to continue wearing Multipodus boots while in bed to both lower extremities. Continue strict NWB to bilateral lower extremities Continue strengthening and reconditioning exercises strictly in bed. Awaiting [place] placement. Podiatry will continue to follow while inhouse.
--- NOTE | 2017-03-12 11:44 | CP.PCM.PN ---
Subjective - Date & Time of Evaluation Date of Evaluation: 03/12/17 Time of Evaluation: 11:44 - Subjective Subjective: seen and examined doing capd herself pt adamant about wanting regular diet and not renal diet denies any fevers chills sob chest pain nauseea vomiting constipation ongoing left foot pain Objective - Vital Signs/Intake and Output Vital Signs (last 24 hours): Temp Pulse Resp BP Pulse Ox 97.9 F 93 H 20 118/74 97 03/12/17 08:00 03/12/17 08:00 03/12/17 08:00 03/12/17 10:53 03/12/17 08:00 Intake and Output: 03/12/17 03/12/17 06:59 18:59 Intake Total 600 Balance 600 - Medications Medications: Current Medications Acetaminophen (Tylenol 325mg Tab) 650 mg PO Q6 PRN PRN Reason: Pain, Mild (1-3) Last Admin: 03/09/17 20:59 Dose: 650 mg Acyclovir (Zovirax 5% Oint) 0 gm EXT Q3H [facility] Last Admin: 03/12/17 08:30 Dose: 1 applic Amlodipine Besylate (Norvasc) 10 mg PO DAILY [facility] Last Admin: 03/12/17 10:53 Dose: 10 mg Carvedilol (Coreg) 12.5 mg PO BID [facility] Last Admin: 03/12/17 10:53 Dose: 12.5 mg Clopidogrel Bisulfate (Plavix) 75 mg PO DAILY [facility] Last Admin: 03/12/17 10:52 Dose: 75 mg Collagenase (Santyl) 1 gm TOP DAILY [facility] Last Admin: 03/11/17 10:00 Dose: 1 applic Diphenhydramine HCl (Benadryl) 25 mg IVP Q4 PRN PRN Reason: Itching / Pruritus Last Admin: 03/11/17 21:52 Dose: 25 mg Epoetin Alec (Procrit) 10,000 unit SC F [facility] Ferric Sodium Gluconate Complex (Ferrlecit) 125 mg IVPB DAILY [facility] Stop: 03/13/17 10:46 Last Admin: 03/12/17 10:52 Dose: 125 mg Hydromorphone HCl (Dilaudid) 0.5 mg IVP Q6H PRN PRN Reason: Pain, severe (8-10) Last Admin: 10/10/17 04:26 Dose: 0.5 mg Meropenem 500 mg/ Sodium (Chloride) 100 mls @ 100 mls/hr IVPB Q24H [facility] Last Admin: 03/12/17 10:52 Dose: 100 mls/hr Insulin Glargine (Lantus) 20 unit SC HS [facility] Last Admin: 03/11/17 22:14 Dose: Not Given Insulin Human Regular (Novolin R) 0 unit SC ACHS [facility] PRN Reason: Protocol Last Admin: 03/12/17 07:38 Dose: Not Given Linezolid (Zyvox) 600 mg PO Q12 [facility] Last Admin: 03/12/17 10:52 Dose: 600 mg Losartan Potassium (Cozaar) 100 mg PO DAILY@1800 [facility] Last Admin: 03/11/17 17:20 Dose: 100 mg Morphine Sulfate (Morphine) 2 mg IVP Q4H PRN PRN Reason: Pain, moderate (4-7) Last Admin: 03/11/17 21:52 Dose: 2 mg Saccharomyces Boulardii (Florastor) 250 mg PO DAILY [facility] Last Admin: 03/12/17 10:52 Dose: 250 mg Sevelamer Carbonate (Renvela) 1.6 gm PO TIDCC [facility] Last Admin: 03/12/17 08:26 Dose: 1.6 gm Vitamin A (Vitamin A & D Oint Ud Foilpak) 1 ea TOP BID PRN PRN Reason: Dry skin Last Admin: 02/28/17 19:56 Dose: 1 ea - Labs Labs: 03/09/17 07:16 03/09/17 07:16 PT 11.1 SECONDS (9.7-12.2) 02/12/17 07:14 INR 1.0 02/12/17 07:14 APTT 32 SECONDS (21-34) 02/12/17 07:14 - Constitutional Appears: No Acute Distress, Chronically Ill - Head Exam Head Exam: NORMAL INSPECTION - Eye Exam Eye Exam: Normal appearance - ENT Exam ENT Exam: Mucous Membranes Moist, Normal Exam - Respiratory Exam Respiratory Exam: Decreased Breath Sounds, NORMAL BREATHING PATTERN - Cardiovascular Exam Cardiovascular Exam: REGULAR RHYTHM, RRR - GI/Abdominal Exam GI & Abdominal Exam: Distended (pd catheter), Soft - Extremities Exam Additional comments: left leg in dressing b/l chronic stasis skin changes Assessment and Plan (1) Gangrene of right foot Status: Acute (2) Anemia Status: Acute (3) Diabetes mellitus Status: Acute (4) ESRD on peritoneal dialysis Status: Acute (5) Hyperkalemia Status: Acute (6) Hypertension Status: Acute - Assessment and Plan (Free Text) Assessment: await surgery maintain capd for now change to cardiac diet, pt refusing renal diet. k acceptable
[2017-03-12] MEDS: Collagenase 250 Units/gm Ointment(30 gm) TOP SCH (11:47)
--- NOTE | 2017-03-12 19:29 | CP.PCM.PN ---
Subjective - Date & Time of Evaluation Date of Evaluation: 03/12/17 Time of Evaluation: 19:29 - Subjective Subjective: Patient is feeling depressed. She's having problem in her right foot. The right foot flap is not healing well. Scheduled to have the incision and drainage in the morning. On examination: Vital signs stable. Chest good air entry. Regular heart sound. Nontender abdomen. Patient will be getting the dialysis today for toenail Assessment and recommendation: 51-year-old female with history of diabetes, hypertension, hypercholesterolemia , end-stage renal disease on peritoneal dialysis. Patient is currently having ischemic legs. Status post forefoot amputation. Patient is medically cleared for the incision and drainage and wound revision. Will follow the patient Objective - Vital Signs/Intake and Output Vital Signs (last 24 hours): Temp Pulse Resp BP Pulse Ox 98.4 F 87 20 123/81 95 03/12/17 16:00 03/12/17 16:00 03/12/17 16:00 03/12/17 18:05 03/12/17 16:00 - Medications Medications: Current Medications Acetaminophen (Tylenol 325mg Tab) 650 mg PO Q6 PRN PRN Reason: Pain, Mild (1-3) Last Admin: 03/09/17 20:59 Dose: 650 mg Acyclovir (Zovirax 5% Oint) 0 gm EXT Q3H [facility] Last Admin: 03/12/17 17:20 Dose: Not Given Amlodipine Besylate (Norvasc) 10 mg PO DAILY [facility] Last Admin: 03/12/17 10:53 Dose: 10 mg Carvedilol (Coreg) 12.5 mg PO BID [facility] Last Admin: 03/12/17 18:05 Dose: 12.5 mg Clopidogrel Bisulfate (Plavix) 75 mg PO DAILY [facility] Last Admin: 03/12/17 10:52 Dose: 75 mg Collagenase (Santyl) 1 gm TOP DAILY [facility] Last Admin: 03/12/17 11:47 Dose: Not Given Diphenhydramine HCl (Benadryl) 25 mg IVP Q4 PRN PRN Reason: Itching / Pruritus Last Admin: 03/11/17 21:52 Dose: 25 mg Epoetin Alec (Procrit) 10,000 unit SC [facility] Ferric Sodium Gluconate Complex (Ferrlecit) 125 mg IVPB DAILY [facility] Stop: 03/13/17 10:46 Last Admin: 03/12/17 10:52 Dose: 125 mg Hydromorphone HCl (Dilaudid) 0.5 mg IVP Q6H PRN PRN Reason: Pain, severe (8-10) Last Admin: 03/12/17 16:53 Dose: 0.5 mg Meropenem 500 mg/ Sodium (Chloride) 100 mls @ 100 mls/hr IVPB Q24H [facility] Last Admin: 03/12/17 10:52 Dose: 100 mls/hr Insulin Glargine (Lantus) 20 unit SC HS [facility] Last Admin: 03/11/17 22:14 Dose: Not Given Insulin Human Regular (Novolin R) 0 unit SC ACHS [facility] PRN Reason: Protocol Last Admin: 03/12/17 16:57 Dose: Not Given Linezolid (Zyvox) 600 mg PO Q12 [facility] Last Admin: 03/12/17 10:52 Dose: 600 mg Losartan Potassium (Cozaar) 100 mg PO DAILY@1800 [facility] Last Admin: 03/12/17 18:05 Dose: 100 mg Morphine Sulfate (Morphine) 2 mg IVP Q4H PRN PRN Reason: Pain, moderate (4-7) Last Admin: 03/11/17 21:52 Dose: 2 mg Saccharomyces Boulardii (Florastor) 250 mg PO DAILY [facility] Last Admin: 03/12/17 10:52 Dose: 250 mg Sevelamer Carbonate (Renvela) 1.6 gm PO TIDCC [facility] Last Admin: 03/12/17 18:30 Dose: 1.6 gm Vitamin A (Vitamin A & D Oint Ud Foilpak) 1 ea TOP BID PRN PRN Reason: Dry skin Last Admin: 02/28/17 19:56 Dose: 1 ea - Labs Labs: 03/09/17 07:16 03/09/17 07:16 PT 11.1 SECONDS (9.7-12.2) 02/12/17 07:14 INR 1.0 02/12/17 07:14 APTT 32 SECONDS (21-34) 02/12/17 07:14
[2017-03-12] MEDS ORDERED: (Lantus) Insulin Glargine, Recombinant SC ONE (21:09)
[2017-03-12] MEDS: (Lantus) Insulin Glargine, Recombinant SC SCH (21:09)
[2017-03-12] MEDS: DiphenhydrAMINE 50 mg/ml Inj IVP PRN (22:46)
[2017-03-13] MEDS: Acyclovir 5% Oint (15 gm) EXT SCH ×5 (02:15→14:28)
[2017-03-13] MEDS: HYDROmorphone 0.5 mg/0.5 ml ISec IVP PRN ×2 (06:43→17:30)
[2017-03-13] MEDS ORDERED: Dextrose 50% SYRINGE Inj (50 ml) IV PRN (07:03)
[2017-03-13] MEDS: DiphenhydrAMINE 50 mg/ml Inj IVP PRN ×4 (07:16→22:37)
[2017-03-13] MEDS: Morphine 4 MG/ML VIAL IVP PRN (07:16)
[2017-03-13 07:59] LABS: HEMATOCRIT 23.5 % (34.0-47.0); MEAN CELL VOLUME 93.7 fL (81.0-99.0); MEAN CORPUSCULAR HGB CONC 33.1 g/dL (33.0-37.0); MEAN PLATELET VOLUME 7.6 fL (7.2-11.7); RED CELL DISTRIBUTION WIDTH 15.1 % (11.5-14.5); WHITE BLOOD COUNT 8.7 K/uL (4.8-10.8)
[2017-03-13] MEDS: (Novolin R) Insulin Human Regular 100 units/ml vial SC SCH ×3 (08:08→17:05)
[2017-03-13] MEDS: Sevelamer Carb 0.8 gm/Packet PO SCH ×3 (08:08→17:34)
[2017-03-13 08:25] LABS: POTASSIUM 4.6 mmol/L (3.6-5.2)
[2017-03-13 08:28] LABS: CALCIUM 9.4 mg/dl (8.6-10.4)
[2017-03-13] MEDS ORDERED: Dextrose 50% SYRINGE Inj (50 ml) ONE (10:18)
[2017-03-13] MEDS ORDERED: Dextrose 50% SYRINGE Inj (50 ml) IV ONE (11:00)
[2017-03-13] MEDS: Meropenem 500 MG in Sodium Chloride 0.9% 100 ML IVPB SCH (11:40)
[2017-03-13] MEDS ORDERED: Lidocaine 2% Inj (20ml) ONE (11:57)
[2017-03-13] MEDS ORDERED: HYDROmorphone 0.5 mg/0.5 ml ISec IVP PRN (12:14)
[2017-03-13] MEDS ORDERED: Midazolam 2 MG/2 ML VIAL ONE (12:21)
[2017-03-13] MEDS ORDERED: Propofol 10 mg/ml Inj (20 ML) ONE (12:25)
[2017-03-13] MEDS: Collagenase 250 Units/gm Ointment(30 gm) TOP SCH (14:29)
--- NOTE | 2017-03-13 14:39 | PCM.SURG1 ---
Surgeon's Initial Post Op Note - Surgeon's Notes Surgeon: Dr. Ordonez Child Development Consultant: Augie De Los Santos PGY2 Type of Anesthesia: IV Sedation, Local (I: 17cc of 2% lidocaine plain) Anesthesia Administered By: Dr. Yash MD Pre-Operative Diagnosis: Right foot non-healing surgical amputation site. Operative Findings: See dictation Post-Operative Diagnosis: same as pre-operative Operation Performed: Right foot wound debridement Specimen/Specimens Removed: Right foot soft tissue Estimated Blood Loss: EBL {In ML}: 10 Blood Products Given: N/A Drains Used: No Drains Post-Op Condition: Fair Date of Surgery/Procedure: 03/13/17 Time of Surgery/Procedure: 12:00
[2017-03-13] MEDS: Ferric Sodium Gluconat Complex 62.5 mg/5 ml Vial IVPB SCH (15:08)
[2017-03-13] MEDS: EPOETIN ALFA 10,000 UNIT/ML ML SC SCH (17:33)
[2017-03-13] MEDS: (Lantus) Insulin Glargine, Recombinant SC SCH (22:37)
--- NOTE | 2017-03-13 23:45 | CP.PCM.PN ---
Subjective - Date & Time of Evaluation Date of Evaluation: 03/13/17 Time of Evaluation: 23:45 - Subjective Subjective: Clinical condition remains same. Right foot wound is not healing. Spoke to the patient regarding the further management. Maybe she will need further intervention. Continue the current treatment Objective - Vital Signs/Intake and Output Vital Signs (last 24 hours): Temp Pulse Resp BP Pulse Ox 97.9 F 89 20 134/75 98 03/13/17 15:27 03/13/17 15:27 03/13/17 15:27 03/13/17 17:32 03/13/17 15:27 Intake and Output: 03/13/17 03/14/17 18:59 06:59 Intake Total 550 Balance 550 - Medications Medications: Current Medications Acetaminophen (Tylenol 325mg Tab) 650 mg PO Q6 PRN PRN Reason: Pain, Mild (1-3) Last Admin: 03/09/17 20:59 Dose: 650 mg Acyclovir (Zovirax 5% Oint) 0 gm EXT Q3H [facility] Last Admin: 03/13/17 14:28 Dose: Not Given Amlodipine Besylate (Norvasc) 10 mg PO DAILY [facility] Last Admin: 03/13/17 11:43 Dose: 10 mg Carvedilol (Coreg) 12.5 mg PO BID [facility] Last Admin: 03/13/17 17:32 Dose: 12.5 mg Clopidogrel Bisulfate (Plavix) 75 mg PO DAILY [facility] Last Admin: 03/13/17 17:33 Dose: 75 mg Collagenase (Santyl) 1 gm TOP DAILY [facility] Last Admin: 03/13/17 14:29 Dose: Not Given Dextrose (Dextrose 50% Inj) 0 ml IV STAT PRN; Protocol PRN Reason: Hyglycemia Protocol Last Admin: 03/13/17 07:17 Dose: 25 ml Dextrose (Glutose 15) 0 gm PO ONCE PRN; Protocol PRN Reason: Hypoglycemia Protocol Diphenhydramine HCl (Benadryl) 25 mg IVP Q4 PRN PRN Reason: Itching / Pruritus Last Admin: 03/13/17 22:37 Dose: 25 mg Epoetin Alec (Procrit) 10,000 unit SC MWF [facility] Last Admin: 03/13/17 17:33 Dose: 10,000 unit Hydromorphone HCl (Dilaudid) 0.5 mg IVP Q6H PRN PRN Reason: Pain, severe (8-10) Last Admin: 03/13/17 17:30 Dose: 0.5 mg Meropenem 500 mg/ Sodium (Chloride) 100 mls @ 100 mls/hr IVPB Q24H [facility] Last Admin: 03/13/17 11:40 Dose: 100 mls/hr Dextrose (Dextrose 5% In Water 1000 Ml) 1,000 mls @ 0 mls/hr IV .Q0M PRN; Protocol; Per Protocol PRN Reason: Hypoglycemia Protocol Dextrose (Dextrose 10% In Water) 1,000 mls @ 30 mls/hr IV .Q24H [facility] Last Admin: 03/13/17 10:31 Dose: 30 mls/hr Insulin Glargine (Lantus) 10 unit SC HS [facility] Last Admin: 03/13/17 22:37 Dose: 10 units Insulin Human Regular (Novolin R) 0 unit SC ACHS [facility] PRN Reason: Protocol Last Admin: 03/13/17 17:05 Dose: Not Given Linezolid (Zyvox) 600 mg PO Q12 [facility] Last Admin: 03/13/17 22:38 Dose: 600 mg Losartan Potassium (Cozaar) 100 mg PO DAILY@1800 [facility] Last Admin: 03/13/17 17:33 Dose: 100 mg Morphine Sulfate (Morphine) 2 mg IVP Q4H PRN PRN Reason: Pain, moderate (4-7) Last Admin: 03/13/17 19:27 Dose: 2 mg Saccharomyces Boulardii (Florastor) 250 mg PO DAILY [facility] Last Admin: 03/12/17 10:52 Dose: 250 mg Sevelamer Carbonate (Renvela) 1.6 gm PO TIDCC [facility] Last Admin: 03/13/17 17:34 Dose: 1.6 gm Vitamin A (Vitamin A & D Oint Ud Foilpak) 1 ea TOP BID PRN PRN Reason: Dry skin Last Admin: 02/28/17 19:56 Dose: 1 ea - Labs Labs: 03/13/17 07:44 03/13/17 07:44 PT 11.7 SECONDS (9.7-12.2) 03/13/17 08:31 INR 1.0 03/13/17 08:31 APTT 41 SECONDS (21-34) H 03/13/17 08:31
[2017-03-14] MEDS: HYDROmorphone 0.5 mg/0.5 ml ISec IVP PRN ×4 (00:17→18:42)
[2017-03-14] MEDS: Acyclovir 5% Oint (15 gm) EXT SCH ×9 (02:39→23:30)
[2017-03-14] MEDS: DiphenhydrAMINE 50 mg/ml Inj IVP PRN ×4 (06:15→18:34)
[2017-03-14] MEDS: (Novolin R) Insulin Human Regular 100 units/ml vial SC SCH ×4 (08:30→21:42)
[2017-03-14] MEDS: Saccharomyces Boulardi 250 mg Cap PO SCH (09:17)
[2017-03-14] MEDS: Sevelamer Carb 0.8 gm/Packet PO SCH ×3 (09:18→18:46)
[2017-03-14] MEDS: Meropenem 500 MG in Sodium Chloride 0.9% 100 ML IVPB SCH (09:40)
[2017-03-14] MEDS: Collagenase 250 Units/gm Ointment(30 gm) TOP SCH (10:00)
--- NOTE | 2017-03-14 10:40 | CP.PCM.PN ---
Subjective - Date & Time of Evaluation Date of Evaluation: 03/14/17 Time of Evaluation: 10:38 - Subjective Subjective: s/p wound debridement 03/13 still in much pain no n, v, f, chills, diarrhea, CPs PD going well chemistries acceptable Objective - Vital Signs/Intake and Output Vital Signs (last 24 hours): Temp Pulse Resp BP Pulse Ox 98.1 F 76 20 130/76 96 03/14/17 07:10 03/14/17 09:15 03/14/17 07:10 03/14/17 09:17 03/14/17 07:10 Intake and Output: 03/14/17 03/14/17 06:59 18:59 Intake Total 250 Balance 250 - Medications Medications: Current Medications Acetaminophen (Tylenol 325mg Tab) 650 mg PO Q6 PRN PRN Reason: Pain, Mild (1-3) Last Admin: 03/09/17 20:59 Dose: 650 mg Acyclovir (Zovirax 5% Oint) 0 gm EXT Q3H [facility] Last Admin: 03/14/17 06:24 Dose: Not Given Amlodipine Besylate (Norvasc) 10 mg PO DAILY [facility] Last Admin: 03/14/17 09:18 Dose: 10 mg Carvedilol (Coreg) 12.5 mg PO BID [facility] Last Admin: 03/14/17 09:17 Dose: 12.5 mg Clopidogrel Bisulfate (Plavix) 75 mg PO DAILY [facility] Last Admin: 03/14/17 09:17 Dose: 75 mg Collagenase (Santyl) 1 gm TOP DAILY [facility] Last Admin: 03/13/17 14:29 Dose: Not Given Dextrose (Dextrose 50% Inj) 0 ml IV STAT PRN; Protocol PRN Reason: Hyglycemia Protocol Last Admin: 03/13/17 07:17 Dose: 25 ml Dextrose (Glutose 15) 0 gm PO ONCE PRN; Protocol PRN Reason: Hypoglycemia Protocol Diphenhydramine HCl (Benadryl) 25 mg IVP Q4 PRN PRN Reason: Itching / Pruritus Last Admin: 03/14/17 06:15 Dose: 25 mg Epoetin Alec (Procrit) 10,000 unit SC MWF [facility] Last Admin: 03/13/17 17:33 Dose: 10,000 unit Hydromorphone HCl (Dilaudid) 0.5 mg IVP Q6H PRN PRN Reason: Pain, severe (8-10) Last Admin: 03/14/17 06:16 Dose: 0.5 mg Meropenem 500 mg/ Sodium (Chloride) 100 mls @ 100 mls/hr IVPB Q24H [facility] Last Admin: 03/14/17 09:40 Dose: 100 mls/hr Dextrose (Dextrose 5% In Water 1000 Ml) 1,000 mls @ 0 mls/hr IV .Q0M PRN; Protocol; Per Protocol PRN Reason: Hypoglycemia Protocol Dextrose (Dextrose 10% In Water) 1,000 mls @ 30 mls/hr IV .Q24H [facility] Last Admin: 03/13/17 10:31 Dose: 30 mls/hr Insulin Glargine (Lantus) 10 unit SC HS [facility] Last Admin: 03/13/17 22:37 Dose: 10 units Insulin Human Regular (Novolin R) 0 unit SC ACHS [facility] PRN Reason: Protocol Last Admin: 03/13/17 17:05 Dose: Not Given Linezolid (Zyvox) 600 mg PO Q12 [facility] Last Admin: 03/14/17 09:17 Dose: 600 mg Losartan Potassium (Cozaar) 100 mg PO DAILY@1800 [facility] Last Admin: 03/13/17 17:33 Dose: 100 mg Morphine Sulfate (Morphine) 2 mg IVP Q4H PRN PRN Reason: Pain, moderate (4-7) Last Admin: 03/14/17 09:19 Dose: 2 mg Saccharomyces Boulardii (Florastor) 250 mg PO DAILY [facility] Last Admin: 03/14/17 09:17 Dose: 250 mg Sevelamer Carbonate (Renvela) 1.6 gm PO TIDCC [facility] Last Admin: 03/14/17 09:18 Dose: 1.6 gm Vitamin A (Vitamin A & D Oint Ud Foilpak) 1 ea TOP BID PRN PRN Reason: Dry skin Last Admin: 02/28/17 19:56 Dose: 1 ea - Labs Labs: 03/13/17 07:44 03/13/17 07:44 PT 11.7 SECONDS (9.7-12.2) 03/13/17 08:31 INR 1.0 03/13/17 08:31 APTT 41 SECONDS (21-34) H 10/11/17 08:31 - Constitutional Appears: In Acute Distress, Chronically Ill - Head Exam Head Exam: ATRAUMATIC, NORMAL INSPECTION - Eye Exam Eye Exam: EOMI, Normal appearance - Neck Exam Neck Exam: Normal Inspection. absent: Tenderness - Respiratory Exam Respiratory Exam: Clear to Ausculation Bilateral, NORMAL BREATHING PATTERN - Cardiovascular Exam Cardiovascular Exam: REGULAR RHYTHM, +S1 - GI/Abdominal Exam GI & Abdominal Exam: Soft. absent: Tenderness - Extremities Exam Extremities Exam: Normal Inspection, Tenderness - Neurological Exam Neurological Exam: Awake, CN II-XII Intact - Skin Skin Exam: Dry, Warm Assessment and Plan (1) Type 1 diabetes mellitus with diabetic nephropathy Status: Acute (2) Gangrene of right foot Status: Acute (3) End stage renal disease Status: Acute - Assessment and Plan (Free Text) Plan: Same PD IV ABs Follow wound for non-healing process
[2017-03-14] MEDS: Zinc Oxide Topical 30 gm Tube TOP SCH (18:45)
[2017-03-14] MEDS: (Lantus) Insulin Glargine, Recombinant SC SCH (21:49)
[2017-03-15] MEDS: Acyclovir 5% Oint (15 gm) EXT SCH ×8 (01:22→23:30)
--- NOTE | 2017-03-15 02:26 | OP ---
PROCEDURE DATE: 03/13/2017 PREOPERATIVE DIAGNOSIS: Right foot nonhealing surgical amputation site. POSTOPERATIVE DIAGNOSIS: Right foot nonhealing surgical amputation site. PROCEDURE PERFORMED: Right foot wound debridement. SURGEON: Kenneth Durham DPM SAFEMAKER: Dr. Radhames De Los Santos, PGY2 ANESTHESIA TYPE: IV sedation with local. ANESTHESIOLOGIST: Chris Berrios MD SPECIMEN: Right foot soft tissue. INDICATIONS: The patient is a 51-year-old female with the above stated diagnosis. The patient had undergone prior Lisfranc amputation performed by Dr. Kenneth Durham 29 days. The surgical site is dehiscing and appears to be nonhealing after nearly one month. The patient has exhausted all interim conservative treatment options and is now in need of additional surgical intervention. The patient signed the surgical consent after careful explanation of risks, benefits, complications and potential alternatives to proposed surgical procedure. No guarantees were neither given nor employed. All patient's questions were answered to her satisfaction. PREPARATION: The patient's n.p.o. status was confirmed prior to bringing the patient to the operating room. The patient was brought to the operating room and placed on the operating room table in a supine position. Once IV sedation was confirmed to have been achieved, the patient received a total of 17 mL of 2% lidocaine plain in a local block-type fashion to the right foot. Once local anesthetic was confirmed to have been achieved, the patient's right foot was then prepped and draped in the usual sterile manner and the procedure began. DESCRIPTION OF PROCEDURE: RIGHT FOOT WOUND DEBRIDEMENT: Attention was then directed to the distal aspect of the patient's right foot, where the patient's past surgical site was evaluated. Using blunt hand manipulation, integrity of the plantar wound flap was assessed. With minimum manipulation, moderate gapping occurred which caused remaining distal sutures, which were holding flap in place, to fail . Plantar flap site, which then freely opened as distal one-third sutures (which were last remaining sutures from prior surgical site) pulled through dorsal skin as skin quality at thet level for too poor to maintain tension of flap. At this time, it was discussed that there was no granulation tissue noted at the plantar flap. No soft tissue ingrowth of vascularity was noted and no medullary bleeding was noted at the exposed medial and intermediate cuneiforms which have been transected priorly by previous surgery. At this time, sharp debridement was performed using Iris scissors on nonviable plantar flap soft tissue down to the level of moderately bleeding soft tissue. Distal margin of epidermal tissue at the plantar edge of the surgical site and the dorsal edge of the surgical site was resected to the level of the healthy epidermal-dermal tissue to allow better reapproximation should secondary intention and delayed primary closure be attempted intraoperatively. At this time, with mild bleeding at the wound site, wound site was then flushed with copious amounts of sterile saline. Once proper lavage using saline was completed, integrated plantar flap was once again assessed, but bleeding remained poor. Incision site was then flushed with sterile saline and hydrogen peroxide mixture, and all bleeders at the distal end of the flap were cauterized and ligated as needed to control hemostasis and prevent hematoma formation. At this time, due to [id number] vascular perfusion at the level of site, an intraoperative decision was made to allow secondary intention healing to occur, thus plantar flap was not reapproximated and wound site was not closed. Incision site was then dressed with hydrogen peroxide and saline mixture and packed loosely with this 4 x 4 mixture of saline peroxide. The wound site was then dressed with dry 4 x 4 gauze and multiple layers of Kerlix. POSTOPERATIVE CONDITION: The patient tolerated the anesthesia and procedure well and was escorted to the recovery room with vital signs stable and neurovascular status intact to the patient's right foot. Podiatry will continue to follow this patient while she remains in-house, and at the time of discharge, we will continue to follow the patient. Radhames De Los Santos DPM Kenneth Durham DPM [email or web address]
[2017-03-15] MEDS: DiphenhydrAMINE 50 mg/ml Inj IVP PRN ×3 (06:15→19:07)
[2017-03-15] MEDS: (Novolin R) Insulin Human Regular 100 units/ml vial SC SCH ×4 (08:49→22:00)
[2017-03-15] MEDS: Sevelamer Carb 0.8 gm/Packet PO SCH ×4 (08:49→18:00)
[2017-03-15] MEDS: Saccharomyces Boulardi 250 mg Cap PO SCH (10:24)
[2017-03-15] MEDS: EPOETIN ALFA 10,000 UNIT/ML ML SC SCH (10:24)
[2017-03-15] MEDS: Collagenase 250 Units/gm Ointment(30 gm) TOP SCH (10:25)
[2017-03-15] MEDS: Clotrimazole/Betamethasone Cream(15 gm) TOP SCH ×2 (10:26→20:18)
[2017-03-15] MEDS: Meropenem 500 MG in Sodium Chloride 0.9% 100 ML IVPB SCH (10:36)
[2017-03-15] MEDS: Benzoin Compound Tincture (60 ml) TOP SCH (12:20)
[2017-03-15] MEDS: Zinc Oxide Topical 30 gm Tube TOP SCH ×2 (12:20→18:14)
--- NOTE | 2017-03-15 13:16 | CP.PCM.PN ---
Subjective - Date & Time of Evaluation Date of Evaluation: 03/15/17 Time of Evaluation: 13:13 - Subjective Subjective: Less pain today No new labs BP controlled, afebrile course No fevers,c, n, v, diarrhea, PIEDRA, CPs For likely wound VAC placement PD fluid clear; going well Objective - Vital Signs/Intake and Output Vital Signs (last 24 hours): Temp Pulse Resp BP Pulse Ox 98 F 97 H 20 134/81 97 03/14/17 23:57 03/14/17 23:57 03/14/17 23:57 03/15/17 10:35 03/14/17 23:57 - Medications Medications: Current Medications Acetaminophen (Tylenol 325mg Tab) 650 mg PO Q6 PRN PRN Reason: Pain, Mild (1-3) Last Admin: 03/09/17 20:59 Dose: 650 mg Acyclovir (Zovirax 5% Oint) 0 gm EXT Q3H [facility] Last Admin: 03/15/17 08:52 Dose: 1 applic Amlodipine Besylate (Norvasc) 10 mg PO DAILY [facility] Last Admin: 03/15/17 10:24 Dose: 10 mg Benzoin (Benzoin Compound Tincture) 2 ml TOP DAILY [facility] Last Admin: 03/15/17 12:20 Dose: Not Given Betamethasone/Clotrimazole (Lotrisone) 1 gm TOP BID [facility] Last Admin: 03/15/17 10:26 Dose: Not Given Carvedilol (Coreg) 12.5 mg PO BID [facility] Last Admin: 03/15/17 10:35 Dose: 12.5 mg Clopidogrel Bisulfate (Plavix) 75 mg PO DAILY [facility] Last Admin: 03/15/17 10:23 Dose: 75 mg Collagenase (Santyl) 1 gm TOP DAILY [facility] Last Admin: 03/15/17 10:25 Dose: Not Given Dextrose (Dextrose 50% Inj) 0 ml IV STAT PRN; Protocol PRN Reason: Hyglycemia Protocol Last Admin: 03/13/17 07:17 Dose: 25 ml Dextrose (Glutose 15) 0 gm PO ONCE PRN; Protocol PRN Reason: Hypoglycemia Protocol Diphenhydramine HCl (Benadryl) 25 mg IVP Q4 PRN PRN Reason: Itching / Pruritus Last Admin: 03/15/17 12:38 Dose: 25 mg Epoetin Alec (Procrit) 10,000 unit SC MWF [facility] Last Admin: 03/15/17 10:24 Dose: 10,000 unit Hydromorphone HCl (Dilaudid) 0.5 mg IVP Q6H PRN PRN Reason: Pain, severe (8-10) Last Admin: 03/14/17 18:42 Dose: 0.5 mg Meropenem 500 mg/ Sodium (Chloride) 100 mls @ 100 mls/hr IVPB Q24H [facility] Last Admin: 03/15/17 10:36 Dose: 100 mls/hr Insulin Glargine (Lantus) 10 unit SC HS [facility] Last Admin: 03/14/17 21:49 Dose: 10 units Insulin Human Regular (Novolin R) 0 unit SC ACHS [facility] PRN Reason: Protocol Last Admin: 03/15/17 12:47 Dose: Not Given Linezolid (Zyvox) 600 mg PO Q12 [facility] Last Admin: 03/15/17 10:24 Dose: 600 mg Losartan Potassium (Cozaar) 100 mg PO DAILY@1800 [facility] Last Admin: 03/14/17 18:46 Dose: 100 mg Morphine Sulfate (Morphine) 2 mg IVP Q4H PRN PRN Reason: Pain, moderate (4-7) Last Admin: 03/15/17 12:27 Dose: 2 mg Petrolatum (Desitin Original) 0 gm TOP BID [facility] Last Admin: 03/15/17 12:20 Dose: Not Given Saccharomyces Boulardii (Florastor) 250 mg PO DAILY [facility] Last Admin: 03/15/17 10:24 Dose: 250 mg Sevelamer Carbonate (Renvela) 1.6 gm PO TIDCC [facility] Last Admin: 03/15/17 08:49 Dose: 1.6 gm Vitamin A (Vitamin A & D Oint Ud Foilpak) 1 ea TOP BID PRN PRN Reason: Dry skin Last Admin: 02/28/17 19:56 Dose: 1 ea - Labs Labs: 03/13/17 07:44 03/13/17 07:44 PT 11.7 SECONDS (9.7-12.2) 03/13/17 08:31 INR 1.0 03/13/17 08:31 APTT 41 SECONDS (21-34) H 03/13/17 08:31 - Constitutional Appears: No Acute Distress, Chronically Ill - Head Exam Head Exam: ATRAUMATIC, NORMAL INSPECTION - Eye Exam Eye Exam: EOMI, Normal appearance - Neck Exam Neck Exam: Normal Inspection. absent: Tenderness - Respiratory Exam Respiratory Exam: Clear to Ausculation Bilateral, NORMAL BREATHING PATTERN - Cardiovascular Exam Cardiovascular Exam: REGULAR RHYTHM, +S1 - GI/Abdominal Exam GI & Abdominal Exam: Soft. absent: Tenderness - Extremities Exam Extremities Exam: Normal Inspection. absent: Tenderness - Neurological Exam Neurological Exam: Awake, CN II-XII Intact - Skin Skin Exam: Dry, Warm Assessment and Plan (1) Type 1 diabetes mellitus with diabetic nephropathy Status: Acute (2) Gangrene of right foot Status: Acute (3) End stage renal disease Status: Acute - Assessment and Plan (Free Text) Plan: Same PD Likely wound VAC placement IV ABs Repeat labs, check iron stores
--- NOTE | 2017-03-15 17:26 | CP.PCM.PN ---
Subjective - Date & Time of Evaluation Date of Evaluation: 03/15/17 Time of Evaluation: 08:00 - Subjective Subjective: s/p debridement right foot wound care and IV antiibotics ordered Objective - Vital Signs/Intake and Output Vital Signs (last 24 hours): Temp Pulse Resp BP Pulse Ox 98 F 97 H 20 134/81 97 03/14/17 23:57 03/14/17 23:57 03/14/17 23:57 03/15/17 10:35 03/14/17 23:57 Intake and Output: 03/15/17 03/15/17 06:59 18:59 Intake Total 600 Balance 600 - Medications Medications: Current Medications Acetaminophen (Tylenol 325mg Tab) 650 mg PO Q6 PRN PRN Reason: Pain, Mild (1-3) Last Admin: 03/09/17 20:59 Dose: 650 mg Acyclovir (Zovirax 5% Oint) 0 gm EXT Q3H [facility] Last Admin: 03/15/17 13:54 Dose: Not Given Amlodipine Besylate (Norvasc) 10 mg PO DAILY [facility] Last Admin: 03/15/17 10:24 Dose: 10 mg Benzoin (Benzoin Compound Tincture) 2 ml TOP DAILY [facility] Last Admin: 03/15/17 12:20 Dose: Not Given Betamethasone/Clotrimazole (Lotrisone) 1 gm TOP BID [facility] Last Admin: 03/15/17 10:26 Dose: Not Given Carvedilol (Coreg) 12.5 mg PO BID [facility] Last Admin: 03/15/17 10:35 Dose: 12.5 mg Clopidogrel Bisulfate (Plavix) 75 mg PO DAILY [facility] Last Admin: 03/15/17 10:23 Dose: 75 mg Collagenase (Santyl) 1 gm TOP DAILY [facility] Last Admin: 03/15/17 10:25 Dose: Not Given Dextrose (Dextrose 50% Inj) 0 ml IV STAT PRN; Protocol PRN Reason: Hyglycemia Protocol Last Admin: 03/13/17 07:17 Dose: 25 ml Dextrose (Glutose 15) 0 gm PO ONCE PRN; Protocol PRN Reason: Hypoglycemia Protocol Diphenhydramine HCl (Benadryl) 25 mg IVP Q4 PRN PRN Reason: Itching / Pruritus Last Admin: 03/15/17 12:38 Dose: 25 mg Epoetin Alec (Procrit) 10,000 unit SC MWF [facility] Last Admin: 03/15/17 10:24 Dose: 10,000 unit Hydromorphone HCl (Dilaudid) 0.5 mg IVP Q6H PRN PRN Reason: Pain, severe (8-10) Last Admin: 03/14/17 18:42 Dose: 0.5 mg Meropenem 500 mg/ Sodium (Chloride) 100 mls @ 100 mls/hr IVPB Q24H [facility] Last Admin: 03/15/17 10:36 Dose: 100 mls/hr Insulin Glargine (Lantus) 10 unit SC HS [facility] Last Admin: 03/14/17 21:49 Dose: 10 units Insulin Human Regular (Novolin R) 0 unit SC ACHS [facility] PRN Reason: Protocol Last Admin: 03/15/17 12:47 Dose: Not Given Linezolid (Zyvox) 600 mg PO Q12 [facility] Last Admin: 03/15/17 10:24 Dose: 600 mg Losartan Potassium (Cozaar) 100 mg PO DAILY@1800 [facility] Last Admin: 03/14/17 18:46 Dose: 100 mg Morphine Sulfate (Morphine) 2 mg IVP Q4H PRN PRN Reason: Pain, moderate (4-7) Last Admin: 03/15/17 12:27 Dose: 2 mg Petrolatum (Desitin Original) 0 gm TOP BID [facility] Last Admin: 03/15/17 12:20 Dose: Not Given Saccharomyces Boulardii (Florastor) 250 mg PO DAILY [facility] Last Admin: 03/15/17 10:24 Dose: 250 mg Sevelamer Carbonate (Renvela) 1.6 gm PO TIDCC [facility] Last Admin: 03/15/17 14:33 Dose: 1.6 gm Vitamin A (Vitamin A & D Oint Ud Foilpak) 1 ea TOP BID PRN PRN Reason: Dry skin Last Admin: 02/28/17 19:56 Dose: 1 ea - Labs Labs: 03/13/17 07:44 03/13/17 07:44 PT 11.7 SECONDS (9.7-12.2) 03/13/17 08:31 INR 1.0 03/13/17 08:31 APTT 41 SECONDS (21-34) H 03/13/17 08:31 - Constitutional Appears: Non-toxic, Chronically Ill - Head Exam Head Exam: NORMOCEPHALIC - Eye Exam Eye Exam: PERRL - ENT Exam ENT Exam: Mucous Membranes Dry - Neck Exam Neck Exam: absent: Lymphadenopathy - Respiratory Exam Respiratory Exam: Decreased Breath Sounds - Cardiovascular Exam Cardiovascular Exam: REGULAR RHYTHM - GI/Abdominal Exam GI & Abdominal Exam: Distended Assessment and Plan (1) Gangrene of right foot Status: Acute (2) Chronic anemia Status: Acute (3) Chronic congestive heart failure Status: Acute (4) Diabetes mellitus Status: Acute (5) ESRD on peritoneal dialysis Assessment & Plan: Right foot non-healing surgical amputation site. Status: Acute
--- NOTE | 2017-03-15 18:56 | CP.PCM.PN ---
Subjective - Date & Time of Evaluation Date of Evaluation: 03/15/17 Time of Evaluation: 18:52 - Subjective Subjective: Podiatry progress note- Dr. Ordonez: 51 yo female patient seen at bedside 2 days s/p right foot wound debridement of non-healing amputation site. She says she has not received pain medication as she has vomitted twice today, and is experiencing "considerable" right foot pain. She admits to vomiting since last visit. She denies f//c/sob/cp/weakness/ dizziness today. Objective - Vital Signs/Intake and Output Vital Signs (last 24 hours): Temp Pulse Resp BP Pulse Ox 98 F 102 H 20 126/79 97 03/14/17 23:57 03/15/17 18:12 03/14/17 23:57 03/15/17 18:13 03/14/17 23:57 Intake and Output: 03/15/17 03/15/17 06:59 18:59 Intake Total 600 Balance 600 - Medications Medications: Current Medications Acetaminophen (Tylenol 325mg Tab) 650 mg PO Q6 PRN PRN Reason: Pain, Mild (1-3) Last Admin: 03/09/17 20:59 Dose: 650 mg Acyclovir (Zovirax 5% Oint) 0 gm EXT Q3H [facility] Last Admin: 03/15/17 18:15 Dose: 1 applic Amlodipine Besylate (Norvasc) 10 mg PO DAILY [facility] Last Admin: 03/15/17 10:24 Dose: 10 mg Benzoin (Benzoin Compound Tincture) 2 ml TOP DAILY [facility] Last Admin: 03/15/17 12:20 Dose: Not Given Betamethasone/Clotrimazole (Lotrisone) 1 gm TOP BID [facility] Last Admin: 03/15/17 10:26 Dose: Not Given Carvedilol (Coreg) 12.5 mg PO BID [facility] Last Admin: 03/15/17 18:13 Dose: 12.5 mg Clopidogrel Bisulfate (Plavix) 75 mg PO DAILY [facility] Last Admin: 03/15/17 10:23 Dose: 75 mg Collagenase (Santyl) 1 gm TOP DAILY [facility] Last Admin: 03/15/17 10:25 Dose: Not Given Dextrose (Dextrose 50% Inj) 0 ml IV STAT PRN; Protocol PRN Reason: Hyglycemia Protocol Last Admin: 03/13/17 07:17 Dose: 25 ml Dextrose (Glutose 15) 0 gm PO ONCE PRN; Protocol PRN Reason: Hypoglycemia Protocol Diphenhydramine HCl (Benadryl) 25 mg IVP Q4 PRN PRN Reason: Itching / Pruritus Last Admin: 03/15/17 12:38 Dose: 25 mg Epoetin Alec (Procrit) 10,000 unit SC MWF [facility] Last Admin: 03/15/17 10:24 Dose: 10,000 unit Hydromorphone HCl (Dilaudid) 0.5 mg IVP Q6H PRN PRN Reason: Pain, severe (8-10) Last Admin: 03/14/17 18:42 Dose: 0.5 mg Meropenem 500 mg/ Sodium (Chloride) 100 mls @ 100 mls/hr IVPB Q24H [facility] Last Admin: 03/15/17 10:36 Dose: 100 mls/hr Insulin Glargine (Lantus) 10 unit SC HS [facility] Last Admin: 03/14/17 21:49 Dose: 10 units Insulin Human Regular (Novolin R) 0 unit SC ACHS [facility] PRN Reason: Protocol Last Admin: 03/15/17 16:30 Dose: Not Given Linezolid (Zyvox) 600 mg PO Q12 [facility] Last Admin: 03/15/17 10:24 Dose: 600 mg Losartan Potassium (Cozaar) 100 mg PO DAILY@1800 [facility] Last Admin: 03/15/17 18:13 Dose: 100 mg Morphine Sulfate (Morphine) 2 mg IVP Q4H PRN PRN Reason: Pain, moderate (4-7) Last Admin: 03/15/17 12:27 Dose: 2 mg Petrolatum (Desitin Original) 0 gm TOP BID [facility] Last Admin: 03/15/17 18:14 Dose: 1 applic Saccharomyces Boulardii (Florastor) 250 mg PO DAILY [facility] Last Admin: 03/15/17 10:24 Dose: 250 mg Sevelamer Carbonate (Renvela) 1.6 gm PO TIDCC [facility] Last Admin: 03/15/17 18:00 Dose: Not Given Vitamin A (Vitamin A & D Oint Ud Foilpak) 1 ea TOP BID PRN PRN Reason: Dry skin Last Admin: 02/28/17 19:56 Dose: 1 ea - Labs Labs: 03/13/17 07:44 03/13/17 07:44 PT 11.7 SECONDS (9.7-12.2) 03/13/17 08:31 INR 1.0 03/13/17 08:31 APTT 41 SECONDS (21-34) H 03/13/17 08:31 - Constitutional Appears: Well, Non-toxic, No Acute Distress - Extremities Exam Additional comments: LE exam: Dressings to both feet appears c/d/i VASC- DP pulse is palpable, PT pulse non-palpable, skin temp runs warm to warm ( from proximal to distal), CFT < 3 sec to amputation flap, no pedal edema DERM- Open surgical site wound measuring 6.7cm x 5 cm with medial and intermediate cuneiform bones exposed. No purulence noted. No mal-odor noted. Limited wound site perfusion noted. NERUO: Pedal sensation intact. ORTHO- moderate pain to palpation of all aspects of Lesfranc level amputation stump - Neurological Exam Neurological Exam: Alert, Awake, Oriented x3 Assessment and Plan - Assessment and Plan (Free Text) Assessment: 51 y/o female patient 1) 2 days s/p right foot wound debridement. 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 Plan: Pt evaluated and treated at bedside with attending, Dr. Ordonez, present. Chart, labs, and vitals reviewed. c/w IV abx as per ID Right foot surgical site flushed copiously with peroxide. Applied negative pressure therapy Woundvac. Wound vac to be changed every 3 days, output to be monitored by podiatry. Directed pt to continue wearing Multipodus boots while in bed to both lower extremities. Continue strict NWB to bilateral lower extremities. Directed to continue strengthening and reconditioning exercises in bed. Pt new [place] placement pending. Right side amputation to be changed with woundvac every 3 days on outcount includes the [facility] [place] facility. Santyl application and dry sterile dressing arianna wrap. Stable from podiatry standpoint for discharge. Podiatry will continue to follow while inhouse.
[2017-03-15] MEDS: HYDROmorphone 0.5 mg/0.5 ml ISec IVP PRN (21:12)
[2017-03-15] MEDS: (Lantus) Insulin Glargine, Recombinant SC SCH (21:12)
--- NOTE | 2017-03-15 23:16 | CP.PCM.PN ---
Subjective - Date & Time of Evaluation Date of Evaluation: 03/15/17 Time of Evaluation: 23:13 - Subjective Subjective: discussed with patient for almost one hour about the plan c/o pain no feeling good this noon vomited once pt is upset with the pain concerned about the wound healing on wound vac there is mild skin necrosis left heal dry noted over all wound not improving pt is not moving much will discuss with podiatry and vascular about the further plan will need BKA rt likely spoke to the pat about that pt is upset will f/u pain meds adjusted as per pt pain needs diet changed will f/u Objective - Vital Signs/Intake and Output Vital Signs (last 24 hours): Temp Pulse Resp BP Pulse Ox 98 F 102 H 20 126/79 97 03/14/17 23:57 03/15/17 18:12 03/14/17 23:57 03/15/17 18:13 03/14/17 23:57 Intake and Output: 03/15/17 03/16/17 18:59 06:59 Intake Total 600 Balance 600 - Medications Medications: Current Medications Acetaminophen (Tylenol 325mg Tab) 650 mg PO Q6 PRN PRN Reason: Pain, Mild (1-3) Last Admin: 03/09/17 20:59 Dose: 650 mg Acyclovir (Zovirax 5% Oint) [address] [facility] Last Admin: 03/15/17 20:19 Dose: Not Given Amlodipine Besylate (Norvasc) 10 mg PO DAILY [facility] Last Admin: 03/15/17 10:24 Dose: 10 mg Benzoin (Benzoin Compound Tincture) [address] [facility] Last Admin: 03/15/17 12:20 Dose: Not Given Betamethasone/Clotrimazole (Lotrisone) 1 gm TOP BID [facility] Last Admin: 03/15/17 20:18 Dose: 1 applic Carvedilol (Coreg) 12.[address] [facility] Last Admin: 03/15/17 18:13 Dose: 12.5 mg Clopidogrel Bisulfate (Plavix) [address] [facility] Last Admin: 03/15/17 10:23 Dose: 75 mg Collagenase (Santyl) [address] [facility] Last Admin: 03/15/17 10:25 Dose: Not Given Dextrose (Dextrose 50% Inj) 0 ml IV STAT PRN; Protocol PRN Reason: Hyglycemia Protocol Last Admin: 03/13/17 07:17 Dose: 25 ml Dextrose (Glutose 15) 0 gm PO ONCE PRN; Protocol PRN Reason: Hypoglycemia Protocol Diphenhydramine HCl (Benadryl) 25 mg IVP Q4 PRN PRN Reason: Itching / Pruritus Last Admin: 03/15/17 19:07 Dose: 25 mg Epoetin Alec (Procrit) 10,[address] [facility] Last Admin: 03/15/17 10:24 Dose: 10,000 unit Hydromorphone HCl (Dilaudid) 0.5 mg IVP Q5H PRN PRN Reason: Pain, severe (8-10) Meropenem 500 mg/ Sodium (Chloride) 100 mls @ 100 mls/hr IVPB Q24H [facility] Last Admin: 03/15/17 10:36 Dose: 100 mls/hr Insulin Glargine (Lantus) [address] [facility] Last Admin: 03/15/17 21:12 Dose: 10 units Insulin Human Regular (Novolin R) 0 unit SC ACHS [facility] PRN Reason: Protocol Last Admin: 03/15/17 16:30 Dose: Not Given Linezolid (Zyvox) [address] [facility] Last Admin: 03/15/17 21:12 Dose: 600 mg Losartan Potassium (Cozaar) 100 mg PO DAILY@1800 [facility] Last Admin: 03/15/17 18:13 Dose: 100 mg Morphine Sulfate (Morphine) 2 mg IVP Q3 PRN PRN Reason: Pain, moderate (4-7) Petrolatum (Desitin Original) [address] [facility] Last Admin: 03/15/17 18:14 Dose: 1 applic Saccharomyces Boulardii (Florastor) [address] [facility] Last Admin: 03/15/17 10:24 Dose: 250 mg Sevelamer Carbonate (Renvela) 1.[address] [facility] Last Admin: 03/15/17 18:00 Dose: Not Given Vitamin A (Vitamin A & D Oint Ud Foilpak) 1 ea TOP BID PRN PRN Reason: Dry skin Last Admin: 02/28/17 19:56 Dose: 1 ea - Labs Labs: 03/13/17 07:44 03/13/17 07:44 PT 11.7 SECONDS (9.7-12.2) 03/13/17 08:31 INR 1.0 03/13/17 08:31 APTT 41 SECONDS (21-34) H 03/13/17 08:31
[2017-03-16] MEDS: DiphenhydrAMINE 50 mg/ml Inj IVP PRN ×5 (01:12→23:06)
[2017-03-16] MEDS: Acyclovir 5% Oint (15 gm) EXT SCH ×6 (02:19→20:15)
[2017-03-16] MEDS: HYDROmorphone 0.5 mg/0.5 ml ISec IVP PRN ×3 (05:57→23:01)
[2017-03-16 07:59] LABS: HEMATOCRIT 23.4 % (34.0-47.0); MEAN CELL VOLUME 93.9 fL (81.0-99.0); MEAN CORPUSCULAR HEMOGLOBIN 30.6 pg (27.0-31.0); MEAN CORPUSCULAR HGB CONC 32.6 g/dL (33.0-37.0); MEAN PLATELET VOLUME 7.9 fL (7.2-11.7); RED CELL DISTRIBUTION WIDTH 15.4 % (11.5-14.5); WHITE BLOOD COUNT 9.2 K/uL (4.8-10.8)
[2017-03-16] MEDS: (Novolin R) Insulin Human Regular 100 units/ml vial SC SCH ×4 (08:01→22:09)
[2017-03-16 08:17] LABS: ALB/GLOB RATIO 0.7 (1.0-2.1); BILIRUBIN,TOTAL 0.3 mg/dL (0.2-1.3); TOTAL PROTEIN 6.7 g/dL (6.3-8.3)
--- NOTE | 2017-03-16 08:17 | CP.PCM.PN ---
Subjective - Date & Time of Evaluation Date of Evaluation: 03/16/17 Time of Evaluation: 08:15 - Subjective Subjective: NOtes reviewed Podiatry follow up noted - clear for rehab Patient reports no overnight events Pain minimal this am! Appetite remains poor - does not like food Tolerating meds, reports no side effects Wound vac placed without difficulty according to patient Continues pd without difficulty ROS: no cp or palp, no sob or cough, No n/v/d, no rash or itch, no mendosa or vision change, chronic foot pain, No urinary complaints Objective - Vital Signs/Intake and Output Vital Signs (last 24 hours): Temp Pulse Resp BP Pulse Ox 98.3 F 90 20 112/71 96 03/16/17 05:55 03/16/17 05:55 03/15/17 23:19 03/16/17 05:55 03/15/17 23:19 Intake and Output: 03/16/17 03/16/17 06:59 18:59 Intake Total 740 Balance 740 - Medications Medications: Current Medications Acetaminophen (Tylenol 325mg Tab) 650 mg PO Q6 PRN PRN Reason: Pain, Mild (1-3) Last Admin: 03/09/17 20:59 Dose: 650 mg Acyclovir (Zovirax 5% Oint) 0 gm EXT Q3H [facility] Last Admin: 03/16/17 08:06 Dose: 1 applic Amlodipine Besylate (Norvasc) 10 mg PO DAILY [facility] Last Admin: 03/15/17 10:24 Dose: 10 mg Benzoin (Benzoin Compound Tincture) 2 ml TOP DAILY [facility] Last Admin: 03/15/17 12:20 Dose: Not Given Betamethasone/Clotrimazole (Lotrisone) 1 gm TOP BID [facility] Last Admin: 03/15/17 20:18 Dose: 1 applic Carvedilol (Coreg) 12.5 mg PO BID [facility] Last Admin: 03/15/17 18:13 Dose: 12.5 mg Clopidogrel Bisulfate (Plavix) 75 mg PO DAILY [facility] Last Admin: 03/15/17 10:23 Dose: 75 mg Collagenase (Santyl) 1 gm TOP DAILY [facility] Last Admin: 03/15/17 10:25 Dose: Not Given Dextrose (Dextrose 50% Inj) 0 ml IV STAT PRN; Protocol PRN Reason: Hyglycemia Protocol Last Admin: 03/13/17 07:17 Dose: 25 ml Dextrose (Glutose 15) 0 gm PO ONCE PRN; Protocol PRN Reason: Hypoglycemia Protocol Diphenhydramine HCl (Benadryl) 25 mg IVP Q4 PRN PRN Reason: Itching / Pruritus Last Admin: 03/16/17 05:57 Dose: 25 mg Epoetin Alec (Procrit) 10,000 unit SC MWF [facility] Last Admin: 03/15/17 10:24 Dose: 10,000 unit Hydromorphone HCl (Dilaudid) 0.5 mg IVP Q5H PRN PRN Reason: Pain, severe (8-10) Last Admin: 03/16/17 05:57 Dose: 0.5 mg Meropenem 500 mg/ Sodium (Chloride) 100 mls @ 100 mls/hr IVPB Q24H [facility] Last Admin: 03/15/17 10:36 Dose: 100 mls/hr Insulin Glargine (Lantus) 10 unit SC HS [facility] Last Admin: 03/15/17 21:12 Dose: 10 units Insulin Human Regular (Novolin R) 0 unit SC ACHS [facility] PRN Reason: Protocol Last Admin: 03/16/17 08:01 Dose: Not Given Linezolid (Zyvox) 600 mg PO Q12 [facility] Last Admin: 03/15/17 21:12 Dose: 600 mg Losartan Potassium (Cozaar) 100 mg PO DAILY@1800 [facility] Last Admin: 03/15/17 18:13 Dose: 100 mg Morphine Sulfate (Morphine) 2 mg IVP Q3 PRN PRN Reason: Pain, moderate (4-7) Last Admin: 03/16/17 01:12 Dose: 2 mg Petrolatum (Desitin Original) 0 gm TOP BID [facility] Last Admin: 03/15/17 18:14 Dose: 1 applic Saccharomyces Boulardii (Florastor) 250 mg PO DAILY [facility] Last Admin: 03/15/17 10:24 Dose: 250 mg Sevelamer Carbonate (Renvela) 1.6 gm PO TIDCC [facility] Last Admin: 03/15/17 18:00 Dose: Not Given Vitamin A (Vitamin A & D Oint Ud Foilpak) 1 ea TOP BID PRN PRN Reason: Dry skin Last Admin: 02/28/17 19:56 Dose: 1 ea - Labs Labs: 03/16/17 07:52 10/11/17 07:44 PT 11.7 SECONDS (9.7-12.2) 03/13/17 08:31 INR 1.0 03/13/17 08:31 APTT 41 SECONDS (21-34) H 03/13/17 08:31 - Constitutional Appears: Non-toxic, Chronically Ill - Head Exam Head Exam: ATRAUMATIC, NORMAL INSPECTION - ENT Exam ENT Exam: Mucous Membranes Moist, Normal Oropharynx - Respiratory Exam Respiratory Exam: Clear to Ausculation Bilateral. absent: Rales, Rhonchi - Cardiovascular Exam Cardiovascular Exam: +S1, +S2. absent: Rubs - GI/Abdominal Exam GI & Abdominal Exam: Soft, Normal Bowel Sounds - Neurological Exam Neurological Exam: Alert, Awake, Oriented x3 - Skin Skin Exam: Dry, Intact Additional comments: wound vac in place Assessment and Plan (1) Gangrene of right foot Status: Acute (2) Anemia Status: Acute (3) Diabetes mellitus Status: Acute (4) ESRD on peritoneal dialysis Status: Acute (5) Hypertension Status: Acute - Assessment and Plan (Free Text) Assessment: Continue with wound care as per podiatry - now with vac Abx as ordered Maintain pd, tolerating well Weight stable / volume status acceptable Bp controlled Continue current meds
[2017-03-16 08:18] LABS: CALCIUM 9.1 mg/dl (8.6-10.4); PHOSPHOROUS 3.5 mg/dL (2.5-4.5)
[2017-03-16] MEDS: Benzoin Compound Tincture (60 ml) TOP SCH (09:57)
[2017-03-16] MEDS: Saccharomyces Boulardi 250 mg Cap PO SCH (09:58)
[2017-03-16] MEDS: Clotrimazole/Betamethasone Cream(15 gm) TOP SCH ×2 (09:58→18:00)
[2017-03-16] MEDS: Zinc Oxide Topical 30 gm Tube TOP SCH ×2 (09:58→18:57)
[2017-03-16] MEDS: Collagenase 250 Units/gm Ointment(30 gm) TOP SCH (09:59)
[2017-03-16] MEDS: Sevelamer Carb 0.8 gm/Packet PO SCH ×3 (09:59→17:32)
[2017-03-16] MEDS: Meropenem 500 MG in Sodium Chloride 0.9% 100 ML IVPB SCH (10:49)
--- NOTE | 2017-03-16 19:23 | CP.PCM.PN ---
Subjective - Date & Time of Evaluation Date of Evaluation: 03/16/17 Time of Evaluation: 13:00 - Subjective Subjective: Podiatry progress note- Dr. Ordonez 51 year old female patient seen at bedside 3 days s/p right foot wound debridement of non-healing amputation site. Patient sleeping comfortably at time of visit, NAD. Patient denies any acute overnight events. Admits to feeling of constant itchiness at WoundVAC site. Patient denies any pain at this visit. Patient denies N/V/F/D/C/SOB/calf pain. Offers no other pedal complaints at this time. Objective - Vital Signs/Intake and Output Vital Signs (last 24 hours): Temp Pulse Resp BP Pulse Ox 98.2 F 96 H 20 144/72 99 03/16/17 15:46 03/16/17 15:46 03/16/17 15:46 03/16/17 17:32 03/16/17 15:46 - Medications Medications: Current Medications Acetaminophen (Tylenol 325mg Tab) 650 mg PO Q6 PRN PRN Reason: Pain, Mild (1-3) Last Admin: 03/09/17 20:59 Dose: 650 mg Acyclovir (Zovirax 5% Oint) 0 gm EXT Q3H [facility] Last Admin: 03/16/17 17:34 Dose: 1 applic Amlodipine Besylate (Norvasc) 10 mg PO DAILY [facility] Last Admin: 03/16/17 09:58 Dose: 10 mg Benzoin (Benzoin Compound Tincture) 2 ml TOP DAILY [facility] Last Admin: 03/16/17 09:57 Dose: Not Given Betamethasone/Clotrimazole (Lotrisone) 1 gm TOP BID [facility] Last Admin: 03/16/17 18:00 Dose: Not Given Carvedilol (Coreg) 12.5 mg PO BID [facility] Last Admin: 03/16/17 17:32 Dose: 12.5 mg Clopidogrel Bisulfate (Plavix) 75 mg PO DAILY [facility] Last Admin: 03/16/17 09:58 Dose: 75 mg Collagenase (Santyl) 1 gm TOP DAILY [facility] Last Admin: 03/16/17 09:59 Dose: Not Given Dextrose (Dextrose 50% Inj) 0 ml IV STAT PRN; Protocol PRN Reason: Hyglycemia Protocol Last Admin: 03/13/17 07:17 Dose: 25 ml Dextrose (Glutose 15) 0 gm PO ONCE PRN; Protocol PRN Reason: Hypoglycemia Protocol Diphenhydramine HCl (Benadryl) 25 mg IVP Q4 PRN PRN Reason: Itching / Pruritus Last Admin: 03/16/17 18:57 Dose: 25 mg Epoetin Alec (Procrit) 10,000 unit SC MWF [facility] Last Admin: 03/15/17 10:24 Dose: 10,000 unit Hydromorphone HCl (Dilaudid) 0.5 mg IVP Q5H PRN PRN Reason: Pain, severe (8-10) Last Admin: 03/16/17 14:28 Dose: 0.5 mg Meropenem 500 mg/ Sodium (Chloride) 100 mls @ 100 mls/hr IVPB Q24H [facility] Last Admin: 03/16/17 10:49 Dose: 100 mls/hr Insulin Glargine (Lantus) 10 unit SC HS [facility] Last Admin: 03/15/17 21:12 Dose: 10 units Insulin Human Regular (Novolin R) 0 unit SC ACHS [facility] PRN Reason: Protocol Last Admin: 03/16/17 16:49 Dose: Not Given Linezolid (Zyvox) 600 mg PO Q12 [facility] Last Admin: 03/16/17 09:58 Dose: 600 mg Losartan Potassium (Cozaar) 100 mg PO DAILY@1800 [facility] Last Admin: 03/16/17 17:32 Dose: 100 mg Morphine Sulfate (Morphine) 2 mg IVP Q3 PRN PRN Reason: Pain, moderate (4-7) Last Admin: 03/16/17 18:56 Dose: 2 mg Petrolatum (Desitin Original) 0 gm TOP BID [facility] Last Admin: 03/16/17 18:57 Dose: Not Given Saccharomyces Boulardii (Florastor) 250 mg PO DAILY [facility] Last Admin: 03/16/17 09:58 Dose: 250 mg Sevelamer Carbonate (Renvela) 1.6 gm PO TIDCC [facility] Last Admin: 03/16/17 17:32 Dose: 1.6 gm Vitamin A (Vitamin A & D Oint Ud Foilpak) 1 ea TOP BID PRN PRN Reason: Dry skin Last Admin: 02/28/17 19:56 Dose: 1 ea - Labs Labs: 03/16/17 07:52 03/16/17 07:52 PT 11.7 SECONDS (9.7-12.2) 03/13/17 08:31 INR 1.0 03/13/17 08:31 APTT 41 SECONDS (21-34) H 03/13/17 08:31 - Constitutional Appears: Well, Non-toxic, No Acute Distress - Extremities Exam Additional comments: Wound VAC to RLE appears clean/dry/intact with no breaks in the seal. Negative pressure wound therapy set at 125 mmHg continuously on low intensity. No drainage noted. - Neurological Exam Neurological Exam: Alert, Awake, Oriented x3 - Psychiatric Exam Psychiatric exam: Normal Affect, Normal Mood Assessment and Plan - Assessment and Plan (Free Text) Assessment: 51 y/o female patient 1) 3 days s/p right foot wound debridement. 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 Plan: Patient seen and evaluated at bedside Discussed with attending, Dr. Ordonez Labs and vitals reviewed = afebrile, WBC 9.2 Plan to change WoundVAC on Saturday, 03/18 Continue with multipodus boots at all times while in bed Strict NWB bilateral lower extremity Pending [place] placement -[facility] NURSING ORDERS: RIGHT SIDE AMPUTATION TO BE CHANGED WITH WOUNDVAC EVERY 3 DAYS ON OUTPATIENT [facility] FACILITY. SANTYL APPLICATION AND DRY STERILE DRESSING RYAN WRAP Stable from podiatry standpoint for discharge Podiatry will continue to follow patient while in house
[2017-03-16] MEDS: (Lantus) Insulin Glargine, Recombinant SC SCH (22:09)
[2017-03-17] MEDS: Acyclovir 5% Oint (15 gm) EXT SCH ×7 (02:50→20:05)
[2017-03-17] MEDS: DiphenhydrAMINE 50 mg/ml Inj IVP PRN ×4 (03:09→20:03)
[2017-03-17] MEDS: (Novolin R) Insulin Human Regular 100 units/ml vial SC SCH ×4 (07:55→22:07)
[2017-03-17] MEDS: Meropenem 500 MG in Sodium Chloride 0.9% 100 ML IVPB SCH (10:01)
[2017-03-17] MEDS: Sevelamer Carb 0.8 gm/Packet PO SCH ×3 (10:02→20:03)
[2017-03-17] MEDS: Vitamins A & D Oint UD Foilpak TOP PRN (10:02)
[2017-03-17] MEDS: Clotrimazole/Betamethasone Cream(15 gm) TOP SCH ×2 (10:04→20:04)
[2017-03-17] MEDS: Zinc Oxide Topical 30 gm Tube TOP SCH ×2 (10:04→20:04)
[2017-03-17] MEDS: Collagenase 250 Units/gm Ointment(30 gm) TOP SCH (10:05)
[2017-03-17] MEDS: Benzoin Compound Tincture (60 ml) TOP SCH (10:05)
[2017-03-17] MEDS: Saccharomyces Boulardi 250 mg Cap PO SCH (10:05)
--- NOTE | 2017-03-17 12:30 | CP.PCM.PN ---
Subjective - Date & Time of Evaluation Date of Evaluation: 03/17/17 Time of Evaluation: 13:20 - Subjective Subjective: Podiatry progress note- Dr. Ordonez 51 year old female patient seen at bedside 4 days s/p right foot wound debridement of non-healing amputation site. Patient resting comfortably at time of visit, AAOx3 and NAD. Patient denies any acute overnight events. Patient admits that she is tolerating the WoundVAC better today, but admits to feeling itchiness at VAC site. Patient denies any pain currently, however admits she has increased sensitivity to touch at wound site. Patient denies N/V/F/D/C/SOB/ calf pain. Offers no other pedal complaints at this time. Objective - Vital Signs/Intake and Output Vital Signs (last 24 hours): Temp Pulse Resp BP Pulse Ox 98.2 F 91 H 20 135/84 96 03/17/17 08:08 03/17/17 08:08 03/17/17 08:08 03/17/17 10:02 03/17/17 08:08 Intake and Output: 03/17/17 03/17/17 06:59 18:59 Intake Total 200 Balance 200 - Medications Medications: Current Medications Acetaminophen (Tylenol 325mg Tab) 650 mg PO Q6 PRN PRN Reason: Pain, Mild (1-3) Last Admin: 03/09/17 20:59 Dose: 650 mg Acyclovir (Zovirax 5% Oint) 0 gm EXT Q3H [facility] Last Admin: 03/17/17 10:04 Dose: 1 applic Amlodipine Besylate (Norvasc) 10 mg PO DAILY [facility] Last Admin: 03/17/17 10:02 Dose: 10 mg Benzoin (Benzoin Compound Tincture) 2 ml TOP DAILY [facility] Last Admin: 03/17/17 10:05 Dose: 2 ml Betamethasone/Clotrimazole (Lotrisone) 1 gm TOP BID [facility] Last Admin: 03/17/17 10:04 Dose: 1 applic Carvedilol (Coreg) 12.5 mg PO BID [facility] Last Admin: 03/17/17 10:02 Dose: 12.5 mg Clopidogrel Bisulfate (Plavix) 75 mg PO DAILY [facility] Last Admin: 03/17/17 10:03 Dose: 75 mg Collagenase (Santyl) 1 gm TOP DAILY [facility] Last Admin: 03/17/17 10:05 Dose: Not Given Dextrose (Dextrose 50% Inj) 0 ml IV STAT PRN; Protocol PRN Reason: Hyglycemia Protocol Last Admin: 03/13/17 07:17 Dose: 25 ml Dextrose (Glutose 15) 0 gm PO ONCE PRN; Protocol PRN Reason: Hypoglycemia Protocol Diphenhydramine HCl (Benadryl) 25 mg IVP Q4 PRN PRN Reason: Itching / Pruritus Last Admin: 03/17/17 10:14 Dose: 25 mg Epoetin Alec (Procrit) 10,000 unit SC MWF [facility] Last Admin: 03/15/17 10:24 Dose: 10,000 unit Hydromorphone HCl (Dilaudid) 0.5 mg IVP Q5H PRN PRN Reason: Pain, severe (8-10) Last Admin: 03/16/17 23:01 Dose: 0.5 mg Meropenem 500 mg/ Sodium (Chloride) 100 mls @ 100 mls/hr IVPB Q24H [facility] Last Admin: 03/17/17 10:01 Dose: 100 mls/hr Insulin Glargine (Lantus) 10 unit SC HS [facility] Last Admin: 03/16/17 22:09 Dose: 10 units Insulin Human Regular (Novolin R) 0 unit SC ACHS [facility] PRN Reason: Protocol Last Admin: 03/17/17 07:55 Dose: Not Given Linezolid (Zyvox) 600 mg PO Q12 [facility] Last Admin: 03/17/17 10:02 Dose: 600 mg Losartan Potassium (Cozaar) 100 mg PO DAILY@1800 [facility] Last Admin: 03/16/17 17:32 Dose: 100 mg Morphine Sulfate (Morphine) 2 mg IVP Q3 PRN PRN Reason: Pain, moderate (4-7) Last Admin: 03/17/17 10:13 Dose: 2 mg Petrolatum (Desitin Original) 0 gm TOP BID [facility] Last Admin: 03/17/17 10:04 Dose: 1 applic Saccharomyces Boulardii (Florastor) 250 mg PO DAILY [facility] Last Admin: 03/17/17 10:05 Dose: 250 mg Sevelamer Carbonate (Renvela) 1.6 gm PO TIDCC [facility] Last Admin: 03/17/17 10:02 Dose: 1.6 gm Vitamin A (Vitamin A & D Oint Ud Foilpak) 1 ea TOP BID PRN PRN Reason: Dry skin Last Admin: 03/17/17 10:02 Dose: 1 ea - Labs Labs: 03/16/17 07:52 03/16/17 07:52 PT 11.7 SECONDS (9.7-12.2) 03/13/17 08:31 INR 1.0 03/13/17 08:31 APTT 41 SECONDS (21-34) H 03/13/17 08:31 - Constitutional Appears: Well, Non-toxic, No Acute Distress - Extremities Exam Additional comments: Wound VAC to RLE appears clean/dry/intact with no breaks in the seal. Negative pressure wound therapy set at 125 mmHg continuously on low intensity. No drainage noted. - Neurological Exam Neurological Exam: Alert, Awake, Oriented x3 - Psychiatric Exam Psychiatric exam: Anxious Assessment and Plan - Assessment and Plan (Free Text) Assessment: 51 y/o female patient 1) 4 days s/p right foot wound debridement. 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 Plan: Patient seen and evaluated at bedside Discussed with attending, Dr. Ordonez Labs and vitals reviewed = afebrile Plan to change WoundVAC tomorrow, Saturday, 03/18 Continue with multipodus boots at all times while in bed Strict NWB bilateral lower extremity Pending [place] placement -[place] NURSING ORDERS: RIGHT SIDE AMPUTATION TO BE CHANGED WITH WOUNDVAC EVERY 3 DAYS ON OUTPATIENT [facility] FACILITY. SANTYL APPLICATION AND DRY STERILE DRESSING RYAN WRAP Stable from podiatry standpoint for discharge Podiatry will continue to follow patient while in house
[2017-03-17] MEDS: HYDROmorphone 0.5 mg/0.5 ml ISec IVP PRN ×2 (12:45→20:04)
--- NOTE | 2017-03-17 14:53 | CP.PCM.PN ---
Subjective - Date & Time of Evaluation Date of Evaluation: 03/17/17 Time of Evaluation: 09:00 - Subjective Subjective: wound vac in place no new positive cultures iv antibiotics renewed Objective - Vital Signs/Intake and Output Vital Signs (last 24 hours): Temp Pulse Resp BP Pulse Ox 98.2 F 91 H 20 135/84 96 03/17/17 08:08 03/17/17 08:08 03/17/17 08:08 03/17/17 10:02 03/17/17 08:08 Intake and Output: 03/17/17 03/17/17 06:59 18:59 Intake Total 200 Balance 200 - Medications Medications: Current Medications Acetaminophen (Tylenol 325mg Tab) 650 mg PO Q6 PRN PRN Reason: Pain, Mild (1-3) Last Admin: 03/09/17 20:59 Dose: 650 mg Acyclovir (Zovirax 5% Oint) 0 gm EXT Q3H [facility] Last Admin: 03/17/17 12:49 Dose: Not Given Amlodipine Besylate (Norvasc) 10 mg PO DAILY [facility] Last Admin: 03/17/17 10:02 Dose: 10 mg Benzoin (Benzoin Compound Tincture) 2 ml TOP DAILY [facility] Last Admin: 03/17/17 10:05 Dose: 2 ml Betamethasone/Clotrimazole (Lotrisone) 1 gm TOP BID [facility] Last Admin: 03/17/17 10:04 Dose: 1 applic Carvedilol (Coreg) 12.5 mg PO BID [facility] Last Admin: 03/17/17 10:02 Dose: 12.5 mg Clopidogrel Bisulfate (Plavix) 75 mg PO DAILY [facility] Last Admin: 03/17/17 10:03 Dose: 75 mg Collagenase (Santyl) 1 gm TOP DAILY [facility] Last Admin: 03/17/17 10:05 Dose: Not Given Dextrose (Dextrose 50% Inj) 0 ml IV STAT PRN; Protocol PRN Reason: Hyglycemia Protocol Last Admin: 03/13/17 07:17 Dose: 25 ml Dextrose (Glutose 15) 0 gm PO ONCE PRN; Protocol PRN Reason: Hypoglycemia Protocol Diphenhydramine HCl (Benadryl) 25 mg IVP Q4 PRN PRN Reason: Itching / Pruritus Last Admin: 03/17/17 10:14 Dose: 25 mg Epoetin Alec (Procrit) 10,000 unit SC MWF [facility] Last Admin: 03/15/17 10:24 Dose: 10,000 unit Hydromorphone HCl (Dilaudid) 0.5 mg IVP Q5H PRN PRN Reason: Pain, severe (8-10) Last Admin: 03/17/17 12:45 Dose: 0.5 mg Meropenem 500 mg/ Sodium (Chloride) 100 mls @ 100 mls/hr IVPB Q24H [facility] Last Admin: 03/17/17 10:01 Dose: 100 mls/hr Insulin Glargine (Lantus) 10 unit SC HS [facility] Last Admin: 03/16/17 22:09 Dose: 10 units Insulin Human Regular (Novolin R) 0 unit SC ACHS [facility] PRN Reason: Protocol Last Admin: 03/17/17 12:48 Dose: Not Given Linezolid (Zyvox) 600 mg PO Q12 [facility] Last Admin: 03/17/17 10:02 Dose: 600 mg Losartan Potassium (Cozaar) 100 mg PO DAILY@1800 [facility] Last Admin: 03/16/17 17:32 Dose: 100 mg Morphine Sulfate (Morphine) 2 mg IVP Q3 PRN PRN Reason: Pain, moderate (4-7) Last Admin: 03/17/17 10:13 Dose: 2 mg Petrolatum (Desitin Original) 0 gm TOP BID [facility] Last Admin: 03/17/17 10:04 Dose: 1 applic Saccharomyces Boulardii (Florastor) 250 mg PO DAILY [facility] Last Admin: 03/17/17 10:05 Dose: 250 mg Sevelamer Carbonate (Renvela) 1.6 gm PO TIDCC [facility] Last Admin: 03/17/17 12:47 Dose: 1.6 gm Vitamin A (Vitamin A & D Oint Ud Foilpak) 1 ea TOP BID PRN PRN Reason: Dry skin Last Admin: 03/17/17 10:02 Dose: 1 ea - Labs Labs: 03/16/17 07:52 03/16/17 07:52 PT 11.7 SECONDS (9.7-12.2) 03/13/17 08:31 INR 1.0 03/13/17 08:31 APTT 41 SECONDS (21-34) H 03/13/17 08:31 - Constitutional Appears: Non-toxic, Chronically Ill - Head Exam Head Exam: NORMOCEPHALIC - Eye Exam Eye Exam: absent: Scleral icterus - ENT Exam ENT Exam: Mucous Membranes Dry - Neck Exam Neck Exam: absent: Lymphadenopathy - Respiratory Exam Respiratory Exam: Decreased Breath Sounds - Cardiovascular Exam Cardiovascular Exam: REGULAR RHYTHM - GI/Abdominal Exam GI & Abdominal Exam: Distended Assessment and Plan (1) Gangrene of right foot Status: Acute (2) Chronic anemia Status: Acute (3) Chronic congestive heart failure Status: Acute (4) Diabetes mellitus Status: Acute (5) ESRD on peritoneal dialysis Status: Acute
--- NOTE | 2017-03-17 21:23 | CP.PCM.PN ---
Subjective - Date & Time of Evaluation Date of Evaluation: 03/16/17 Time of Evaluation: 21:20 - Subjective Subjective: pt is c/o pain in the legs no nausea no vomiting wound vac in place will continue the treatment will discuss with podiatry Objective - Vital Signs/Intake and Output Vital Signs (last 24 hours): Temp Pulse Resp BP Pulse Ox 98.1 F 75 18 130/86 96 03/17/17 15:21 03/17/17 15:21 03/17/17 15:21 03/17/17 20:03 03/17/17 15:21 Intake and Output: 03/17/17 03/18/17 18:59 06:59 Intake Total 350 Balance 350 - Medications Medications: Current Medications Acetaminophen (Tylenol 325mg Tab) 650 mg PO Q6 PRN PRN Reason: Pain, Mild (1-3) Last Admin: 03/09/17 20:59 Dose: 650 mg Acyclovir (Zovirax 5% Oint) 0 gm EXT Q3H [facility] Last Admin: 03/17/17 20:05 Dose: 1 applic Amlodipine Besylate (Norvasc) 10 mg PO DAILY [facility] Last Admin: 03/17/17 10:02 Dose: 10 mg Benzoin (Benzoin Compound Tincture) 2 ml TOP DAILY [facility] Last Admin: 03/17/17 10:05 Dose: 2 ml Betamethasone/Clotrimazole (Lotrisone) 1 gm TOP BID [facility] Last Admin: 03/17/17 20:04 Dose: 1 applic Carvedilol (Coreg) 12.5 mg PO BID [facility] Last Admin: 03/17/17 20:03 Dose: 12.5 mg Clopidogrel Bisulfate (Plavix) 75 mg PO DAILY [facility] Last Admin: 03/17/17 10:03 Dose: 75 mg Collagenase (Santyl) 1 gm TOP DAILY [facility] Last Admin: 03/17/17 10:05 Dose: Not Given Dextrose (Dextrose 50% Inj) 0 ml IV STAT PRN; Protocol PRN Reason: Hyglycemia Protocol Last Admin: 03/13/17 07:17 Dose: 25 ml Dextrose (Glutose 15) 0 gm PO ONCE PRN; Protocol PRN Reason: Hypoglycemia Protocol Diphenhydramine HCl (Benadryl) 25 mg IVP Q4 PRN PRN Reason: Itching / Pruritus Last Admin: 03/17/17 20:03 Dose: 25 mg Epoetin Alec (Procrit) 10,000 unit SC MWF [facility] Last Admin: 03/15/17 10:24 Dose: 10,000 unit Hydromorphone HCl (Dilaudid) 0.5 mg IVP Q5H PRN PRN Reason: Pain, severe (8-10) Last Admin: 03/17/17 20:04 Dose: 0.5 mg Meropenem 500 mg/ Sodium (Chloride) 100 mls @ 100 mls/hr IVPB Q24H [facility] Last Admin: 03/17/17 10:01 Dose: 100 mls/hr Insulin Glargine (Lantus) 10 unit SC HS [facility] Last Admin: 03/16/17 22:09 Dose: 10 units Insulin Human Regular (Novolin R) 0 unit SC ACHS [facility] PRN Reason: Protocol Last Admin: 03/17/17 17:50 Dose: Not Given Linezolid (Zyvox) 600 mg PO Q12 [facility] Last Admin: 03/17/17 20:07 Dose: 600 mg Losartan Potassium (Cozaar) 100 mg PO DAILY@1800 [facility] Last Admin: 03/17/17 20:03 Dose: 100 mg Morphine Sulfate (Morphine) 2 mg IVP Q3 PRN PRN Reason: Pain, moderate (4-7) Last Admin: 03/17/17 10:13 Dose: 2 mg Petrolatum (Desitin Original) 0 gm TOP BID [facility] Last Admin: 03/17/17 20:04 Dose: 1 applic Saccharomyces Boulardii (Florastor) 250 mg PO DAILY [facility] Last Admin: 03/17/17 10:05 Dose: 250 mg Sevelamer Carbonate (Renvela) 1.6 gm PO TIDCC [facility] Last Admin: 03/17/17 20:03 Dose: 1.6 gm Vitamin A (Vitamin A & D Oint Ud Foilpak) 1 ea TOP BID PRN PRN Reason: Dry skin Last Admin: 03/17/17 10:02 Dose: 1 ea - Labs Labs: 03/16/17 07:52 03/16/17 07:52 PT 11.7 SECONDS (9.7-12.2) 03/13/17 08:31 INR 1.0 03/13/17 08:31 APTT 41 SECONDS (21-34) H 03/13/17 08:31
[2017-03-17] MEDS: (Lantus) Insulin Glargine, Recombinant SC SCH (22:50)
[2017-03-18] MEDS: DiphenhydrAMINE 50 mg/ml Inj IVP PRN ×5 (01:47→21:58)
[2017-03-18] MEDS: Acyclovir 5% Oint (15 gm) EXT SCH ×6 (02:40→21:16)
[2017-03-18] MEDS: (Novolin R) Insulin Human Regular 100 units/ml vial SC SCH ×4 (07:59→21:59)
[2017-03-18] MEDS: HYDROmorphone 0.5 mg/0.5 ml ISec IVP PRN ×2 (09:56→18:27)
[2017-03-18] MEDS: Collagenase 250 Units/gm Ointment(30 gm) TOP SCH (10:00)
[2017-03-18] MEDS: Saccharomyces Boulardi 250 mg Cap PO SCH (10:00)
[2017-03-18] MEDS: EPOETIN ALFA 10,000 UNIT/ML ML SC SCH ×2 (10:00→21:58)
[2017-03-18] MEDS: Zinc Oxide Topical 30 gm Tube TOP SCH ×2 (10:00→18:29)
[2017-03-18] MEDS: Benzoin Compound Tincture (60 ml) TOP SCH (10:00)
[2017-03-18] MEDS: Clotrimazole/Betamethasone Cream(15 gm) TOP SCH ×2 (10:00→18:29)
[2017-03-18] MEDS: Sevelamer Carb 0.8 gm/Packet PO SCH ×3 (10:00→18:28)
[2017-03-18] MEDS: Meropenem 500 MG in Sodium Chloride 0.9% 100 ML IVPB SCH (10:01)
--- NOTE | 2017-03-18 11:04 | CP.PCM.PN ---
Subjective - Date & Time of Evaluation Date of Evaluation: 03/18/17 Time of Evaluation: 10:30 - Subjective Subjective: Podiatry progress note- Dr. Ordonez 51 year old female patient seen at bedside 5 days s/p right foot wound debridement of non-healing amputation site. Patient resting comfortably at time of visit, AAOx3 and NAD. Patient states that the pain to right foot has become less over the weekend. Patient states that she experiences great pain when changing the dressing (Wound VAC). Patient denies N/V/F/D/C/SOB/calf pain. Offers no other pedal complaints at this time. Objective - Vital Signs/Intake and Output Vital Signs (last 24 hours): Temp Pulse Resp BP Pulse Ox 98.2 F 98 H 18 164/78 H 96 03/18/17 08:29 03/18/17 08:29 03/18/17 08:29 03/18/17 09:59 03/18/17 08:29 - Medications Medications: Current Medications Acetaminophen (Tylenol 325mg Tab) 650 mg PO Q6 PRN PRN Reason: Pain, Mild (1-3) Last Admin: 03/17/17 22:53 Dose: 650 mg Acyclovir (Zovirax 5% Oint) 0 gm EXT Q3H [facility] Last Admin: 03/18/17 05:14 Dose: Not Given Amlodipine Besylate (Norvasc) 10 mg PO DAILY [facility] Last Admin: 03/17/17 10:02 Dose: 10 mg Benzoin (Benzoin Compound Tincture) 2 ml TOP DAILY [facility] Last Admin: 03/17/17 10:05 Dose: 2 ml Betamethasone/Clotrimazole (Lotrisone) 1 gm TOP BID [facility] Last Admin: 03/17/17 20:04 Dose: 1 applic Carvedilol (Coreg) 12.5 mg PO BID [facility] Last Admin: 03/18/17 09:59 Dose: 12.5 mg Clopidogrel Bisulfate (Plavix) 75 mg PO DAILY [facility] Last Admin: 03/18/17 09:59 Dose: 75 mg Collagenase (Santyl) 1 gm TOP DAILY [facility] Last Admin: 03/17/17 10:05 Dose: Not Given Dextrose (Dextrose 50% Inj) 0 ml IV STAT PRN; Protocol PRN Reason: Hyglycemia Protocol Last Admin: 03/13/17 07:17 Dose: 25 ml Dextrose (Glutose 15) 0 gm PO ONCE PRN; Protocol PRN Reason: Hypoglycemia Protocol Diphenhydramine HCl (Benadryl) 25 mg IVP Q4 PRN PRN Reason: Itching / Pruritus Last Admin: 03/18/17 06:52 Dose: 25 mg Epoetin Alec (Procrit) 10,000 unit SC MWF [facility] Last Admin: 03/15/17 10:24 Dose: 10,000 unit Hydromorphone HCl (Dilaudid) 0.5 mg IVP Q5H PRN PRN Reason: Pain, severe (8-10) Last Admin: 03/18/17 09:56 Dose: 0.5 mg Meropenem 500 mg/ Sodium (Chloride) 100 mls @ 100 mls/hr IVPB Q24H [facility] Last Admin: 03/18/17 10:01 Dose: 100 mls/hr Insulin Glargine (Lantus) 10 unit SC HS [facility] Last Admin: 03/17/17 22:50 Dose: 10 units Insulin Human Regular (Novolin R) 0 unit SC ACHS [facility] PRN Reason: Protocol Last Admin: 03/18/17 07:59 Dose: Not Given Linezolid (Zyvox) 600 mg PO Q12 [facility] Last Admin: 03/18/17 10:00 Dose: 600 mg Losartan Potassium (Cozaar) 100 mg PO DAILY@1800 [facility] Last Admin: 03/17/17 20:03 Dose: 100 mg Morphine Sulfate (Morphine) 2 mg IVP Q3 PRN PRN Reason: Pain, moderate (4-7) Last Admin: 03/18/17 06:51 Dose: 2 mg Petrolatum (Desitin Original) 0 gm TOP BID [facility] Last Admin: 03/17/17 20:04 Dose: 1 applic Saccharomyces Boulardii (Florastor) 250 mg PO DAILY [facility] Last Admin: 03/18/17 10:00 Dose: 250 mg Sevelamer Carbonate (Renvela) 1.6 gm PO TIDCC [facility] Last Admin: 03/18/17 10:00 Dose: 1.6 gm Vitamin A (Vitamin A & D Oint Ud Foilpak) 1 ea TOP BID PRN PRN Reason: Dry skin Last Admin: 03/17/17 10:02 Dose: 1 ea - Labs Labs: 03/16/17 07:52 03/16/17 07:52 PT 11.7 SECONDS (9.7-12.2) 03/13/17 08:31 INR 1.0 03/13/17 08:31 APTT 41 SECONDS (21-34) H 03/13/17 08:31 - Constitutional Appears: Well, Non-toxic, No Acute Distress - Head Exam Head Exam: ATRAUMATIC - Extremities Exam Additional comments: LE exam: Dressings to both feet appears c/d/i VASC- DP pulse is palpable, PT pulse non-palpable, skin temp runs warm to warm ( from proximal to distal), CFT < 3 sec to amputation flap, no pedal edema DERM- Open surgical site wound measuring 6.7cm x 5 cm with medial and intermediate cuneiform bones exposed. No purulence noted. No mal-odor noted. Bones exposed. Limited wound site perfusion noted. NERUO: Pedal sensation intact. ORTHO- moderate pain to palpation of all aspects of Lesfranc level amputation stump - Neurological Exam Neurological Exam: Alert, Awake, Oriented x3 - Psychiatric Exam Psychiatric exam: Normal Affect, Normal Mood - Skin Skin Exam: Normal Color, Warm Assessment and Plan - Assessment and Plan (Free Text) Assessment: 51 y/o female patient 1) 5 days s/p right foot wound debridement. 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 Plan: Patient seen and evaluated at bedside Discussed with attending, Dr. Ordonez Labs and vitals reviewed = afebrile WoundVAC changed today. Continue with multipodus boots at all times while in bed Strict NWB bilateral lower extremity Pending [facility] placement -[facility] NURSING ORDERS: RIGHT SIDE AMPUTATION TO BE CHANGED WITH WOUNDVAC EVERY 3 DAYS ON OUTPATIENT [facility] FACILITY. SANTYL APPLICATION AND DRY STERILE DRESSING RYAN WRAP Stable from podiatry standpoint for discharge Podiatry will continue to follow patient while in house
--- NOTE | 2017-03-18 11:56 | CP.PCM.PN ---
Subjective - Date & Time of Evaluation Date of Evaluation: 03/18/17 Time of Evaluation: 11:53 - Subjective Subjective: wound VAC in place afebrile course PD going well IV ABs in place no c/o n, v, f, c, HAs, CPs, SOB Objective - Vital Signs/Intake and Output Vital Signs (last 24 hours): Temp Pulse Resp BP Pulse Ox 98.2 F 98 H 18 164/78 H 96 03/18/17 08:29 03/18/17 08:29 03/18/17 08:29 03/18/17 09:59 03/18/17 08:29 - Medications Medications: Current Medications Acetaminophen (Tylenol 325mg Tab) 650 mg PO Q6 PRN PRN Reason: Pain, Mild (1-3) Last Admin: 03/17/17 22:53 Dose: 650 mg Acyclovir (Zovirax 5% Oint) 0 gm EXT Q3H [facility] Last Admin: 03/18/17 05:14 Dose: Not Given Amlodipine Besylate (Norvasc) 10 mg PO DAILY [facility] Last Admin: 03/17/17 10:02 Dose: 10 mg Benzoin (Benzoin Compound Tincture) 2 ml TOP DAILY [facility] Last Admin: 03/17/17 10:05 Dose: 2 ml Betamethasone/Clotrimazole (Lotrisone) 1 gm TOP BID [facility] Last Admin: 03/17/17 20:04 Dose: 1 applic Carvedilol (Coreg) 12.5 mg PO BID [facility] Last Admin: 03/18/17 09:59 Dose: 12.5 mg Clopidogrel Bisulfate (Plavix) 75 mg PO DAILY [facility] Last Admin: 03/18/17 09:59 Dose: 75 mg Collagenase (Santyl) 1 gm TOP DAILY [facility] Last Admin: 03/17/17 10:05 Dose: Not Given Dextrose (Dextrose 50% Inj) 0 ml IV STAT PRN; Protocol PRN Reason: Hyglycemia Protocol Last Admin: 03/13/17 07:17 Dose: 25 ml Dextrose (Glutose 15) 0 gm PO ONCE PRN; Protocol PRN Reason: Hypoglycemia Protocol Diphenhydramine HCl (Benadryl) 25 mg IVP Q4 PRN PRN Reason: Itching / Pruritus Last Admin: 03/18/17 06:52 Dose: 25 mg Epoetin Alec (Procrit) 10,000 unit [facility] Last Admin: 03/15/17 10:24 Dose: 10,000 unit Hydromorphone HCl (Dilaudid) 0.5 mg IVP Q5H PRN PRN Reason: Pain, severe (8-10) Last Admin: 03/18/17 09:56 Dose: 0.5 mg Meropenem 500 mg/ Sodium (Chloride) 100 mls @ 100 mls/hr IVPB Q24H [facility] Last Admin: 03/18/17 10:01 Dose: 100 mls/hr Insulin Glargine (Lantus) 10 unit SC HS [facility] Last Admin: 03/17/17 22:50 Dose: 10 units Insulin Human Regular (Novolin R) 0 unit SC ACHS [facility] PRN Reason: Protocol Last Admin: 03/18/17 07:59 Dose: Not Given Linezolid (Zyvox) 600 mg PO Q12 [facility] Last Admin: 03/18/17 10:00 Dose: 600 mg Losartan Potassium (Cozaar) 100 mg PO DAILY@1800 [facility] Last Admin: 03/17/17 20:03 Dose: 100 mg Morphine Sulfate (Morphine) 2 mg IVP Q3 PRN PRN Reason: Pain, moderate (4-7) Last Admin: 03/18/17 06:51 Dose: 2 mg Petrolatum (Desitin Original) 0 gm TOP BID [facility] Last Admin: 03/17/17 20:04 Dose: 1 applic Saccharomyces Boulardii (Florastor) 250 mg PO DAILY [facility] Last Admin: 03/18/17 10:00 Dose: 250 mg Sevelamer Carbonate (Renvela) 1.6 gm PO TIDCC [facility] Last Admin: 03/18/17 10:00 Dose: 1.6 gm Vitamin A (Vitamin A & D Oint Ud Foilpak) 1 ea TOP BID PRN PRN Reason: Dry skin Last Admin: 03/17/17 10:02 Dose: 1 ea - Labs Labs: 03/16/17 07:52 03/16/17 07:52 PT 11.7 SECONDS (9.7-12.2) 03/13/17 08:31 INR 1.0 03/13/17 08:31 APTT 41 SECONDS (21-34) H 03/13/17 08:31 - Constitutional Appears: No Acute Distress, Chronically Ill - Head Exam Head Exam: ATRAUMATIC, NORMAL INSPECTION - Eye Exam Eye Exam: EOMI, Normal appearance - Neck Exam Neck Exam: Normal Inspection. absent: Tenderness - Respiratory Exam Respiratory Exam: Clear to Ausculation Bilateral, NORMAL BREATHING PATTERN - Cardiovascular Exam Cardiovascular Exam: REGULAR RHYTHM, +S1 - GI/Abdominal Exam GI & Abdominal Exam: Distended, Soft. absent: Tenderness - Extremities Exam Extremities Exam: Normal Inspection. absent: Tenderness - Neurological Exam Neurological Exam: Alert, CN II-XII Intact - Skin Skin Exam: Dry, Warm Assessment and Plan (1) Type 1 diabetes mellitus with diabetic nephropathy Status: Acute (2) Gangrene of right foot Status: Acute (3) End stage renal disease Status: Acute - Assessment and Plan (Free Text) Plan: Same PD Wound care/ wound VAC follow up Hg IV ABs
--- NOTE | 2017-03-18 21:40 | CP.PCM.PN ---
Subjective - Date & Time of Evaluation Date of Evaluation: 03/18/17 Time of Evaluation: 21:39 - Subjective Subjective: Podiatric note reviewed We'll try to talk to the creping machine operator helper attending again We'll try to talk to them regarding the discharge plan. Patient is still having pain, but less than before. According to the creping machine operator helper stable at this time. Vital signs are stable. Blood sugar is better. We'll continue the current treatment. We will follow the patient Objective - Vital Signs/Intake and Output Vital Signs (last 24 hours): Temp Pulse Resp BP Pulse Ox 98.3 F 100 H 18 131/72 96 03/18/17 15:57 03/18/17 15:57 03/18/17 15:57 03/18/17 18:28 03/18/17 08:29 - Medications Medications: Current Medications Acetaminophen (Tylenol 325mg Tab) 650 mg PO Q6 PRN PRN Reason: Pain, Mild (1-3) Last Admin: 03/17/17 22:53 Dose: 650 mg Acyclovir (Zovirax 5% Oint) 0 gm EXT Q3H [facility] Last Admin: 03/18/17 21:16 Dose: Not Given Amlodipine Besylate (Norvasc) 10 mg PO DAILY [facility] Last Admin: 03/18/17 10:00 Dose: 10 mg Benzoin (Benzoin Compound Tincture) 2 ml TOP DAILY [facility] Last Admin: 03/18/17 10:00 Dose: Not Given Betamethasone/Clotrimazole (Lotrisone) 1 gm TOP BID [facility] Last Admin: 03/18/17 18:29 Dose: 1 applic Carvedilol (Coreg) 12.5 mg PO BID [facility] Last Admin: 03/18/17 18:28 Dose: 12.5 mg Clopidogrel Bisulfate (Plavix) 75 mg PO DAILY [facility] Last Admin: 03/18/17 09:59 Dose: 75 mg Dextrose (Dextrose 50% Inj) 0 ml IV STAT PRN; Protocol PRN Reason: Hyglycemia Protocol Last Admin: 03/13/17 07:17 Dose: 25 ml Dextrose (Glutose 15) 0 gm PO ONCE PRN; Protocol PRN Reason: Hypoglycemia Protocol Diphenhydramine HCl (Benadryl) 25 mg IVP Q4 PRN PRN Reason: Itching / Pruritus Last Admin: 03/18/17 18:28 Dose: 25 mg Epoetin Alec (Procrit) 10,000 unit SC MWF [facility] Last Admin: 03/18/17 10:00 Dose: Not Given Hydromorphone HCl (Dilaudid) 0.5 mg IVP Q5H PRN PRN Reason: Pain, severe (8-10) Last Admin: 03/18/17 18:27 Dose: 0.5 mg Meropenem 500 mg/ Sodium (Chloride) 100 mls @ 100 mls/hr IVPB Q24H [facility] Last Admin: 03/18/17 10:01 Dose: 100 mls/hr Insulin Glargine (Lantus) 10 unit SC HS [facility] Last Admin: 03/17/17 22:50 Dose: 10 units Insulin Human Regular (Novolin R) 0 unit SC ACHS [facility] PRN Reason: Protocol Last Admin: 03/18/17 18:29 Dose: 1 unit Linezolid (Zyvox) 600 mg PO Q12 [facility] Last Admin: 03/18/17 10:00 Dose: 600 mg Losartan Potassium (Cozaar) 100 mg PO DAILY@1800 [facility] Last Admin: 03/18/17 18:28 Dose: 100 mg Morphine Sulfate (Morphine) 2 mg IVP Q3 PRN PRN Reason: Pain, moderate (4-7) Last Admin: 03/18/17 13:32 Dose: 2 mg Petrolatum (Desitin Original) 0 gm TOP BID [facility] Last Admin: 03/18/17 18:29 Dose: 1 applic Saccharomyces Boulardii (Florastor) 250 mg PO DAILY [facility] Last Admin: 03/18/17 10:00 Dose: 250 mg Sevelamer Carbonate (Renvela) 1.6 gm PO TIDCC [facility] Last Admin: 03/18/17 18:28 Dose: 1.6 gm Vitamin A (Vitamin A & D Oint Ud Foilpak) 1 ea TOP BID PRN PRN Reason: Dry skin Last Admin: 03/17/17 10:02 Dose: 1 ea - Labs Labs: 03/16/17 07:52 03/16/17 07:52 PT 11.7 SECONDS (9.7-12.2) 03/13/17 08:31 INR 1.0 03/13/17 08:31 APTT 41 SECONDS (21-34) H 03/13/17 08:31
[2017-03-18] MEDS: (Lantus) Insulin Glargine, Recombinant SC SCH (21:59)
[2017-03-19] MEDS: Acyclovir 5% Oint (15 gm) EXT SCH ×5 (00:10→17:15)
[2017-03-19] MEDS: DiphenhydrAMINE 50 mg/ml Inj IVP PRN ×4 (02:26→22:38)
[2017-03-19] MEDS: HYDROmorphone 0.5 mg/0.5 ml ISec IVP PRN ×3 (02:26→20:12)
[2017-03-19] MEDS: Sevelamer Carb 0.8 gm/Packet PO SCH ×3 (08:43→17:45)
[2017-03-19] MEDS: (Novolin R) Insulin Human Regular 100 units/ml vial SC SCH ×4 (08:44→16:07)
[2017-03-19] MEDS: Saccharomyces Boulardi 250 mg Cap PO SCH (10:42)
[2017-03-19] MEDS: Meropenem 500 MG in Sodium Chloride 0.9% 100 ML IVPB SCH (10:47)
[2017-03-19] MEDS: Clotrimazole/Betamethasone Cream(15 gm) TOP SCH ×2 (10:51→17:17)
[2017-03-19] MEDS: Zinc Oxide Topical 30 gm Tube TOP SCH ×2 (10:52→18:45)
[2017-03-19] MEDS: Benzoin Compound Tincture (60 ml) TOP SCH (11:06)
--- NOTE | 2017-03-19 11:57 | CP.PCM.PN ---
Subjective - Date & Time of Evaluation Date of Evaluation: 03/19/17 Time of Evaluation: 11:57 - Subjective Subjective: seen and examined wound vac in place ongoing pd pt denies any nausea vomiting. last BM 3 days ago no fevers chills sob chest pain dizziness headache c/o foot pain Objective - Vital Signs/Intake and Output Vital Signs (last 24 hours): Temp Pulse Resp BP Pulse Ox 98.0 F 89 20 135/64 97 03/19/17 07:00 03/19/17 07:00 03/19/17 07:00 03/19/17 10:48 03/19/17 07:00 Intake and Output: 03/19/17 03/19/17 06:59 18:59 Intake Total 120 Balance 120 - Medications Medications: Current Medications Acetaminophen (Tylenol 325mg Tab) 650 mg PO Q6 PRN PRN Reason: Pain, Mild (1-3) Last Admin: 03/17/17 22:53 Dose: 650 mg Acyclovir (Zovirax 5% Oint) 0 gm EXT Q3H [facility] Last Admin: 03/19/17 10:50 Dose: 1 applic Amlodipine Besylate (Norvasc) 10 mg PO DAILY [facility] Last Admin: 03/19/17 10:48 Dose: 10 mg Benzoin (Benzoin Compound Tincture) 2 ml TOP DAILY [facility] Last Admin: 03/19/17 11:06 Dose: Not Given Betamethasone/Clotrimazole (Lotrisone) 1 gm TOP BID [facility] Last Admin: 03/19/17 10:51 Dose: 1 applic Carvedilol (Coreg) 12.5 mg PO BID [facility] Last Admin: 03/19/17 10:48 Dose: 12.5 mg Clopidogrel Bisulfate (Plavix) 75 mg PO DAILY [facility] Last Admin: 03/19/17 10:42 Dose: 75 mg Dextrose (Dextrose 50% Inj) 0 ml IV STAT PRN; Protocol PRN Reason: Hyglycemia Protocol Last Admin: 03/13/17 07:17 Dose: 25 ml Dextrose (Glutose 15) 0 gm PO ONCE PRN; Protocol PRN Reason: Hypoglycemia Protocol Diphenhydramine HCl (Benadryl) 25 mg IVP Q4 PRN PRN Reason: Itching / Pruritus Last Admin: 03/19/17 11:05 Dose: 25 mg Epoetin Alec (Procrit) 10,000 unit SC MWF [facility] Last Admin: 03/18/17 21:58 Dose: 10,000 unit Hydromorphone HCl (Dilaudid) 0.5 mg IVP Q5H PRN PRN Reason: Pain, severe (8-10) Last Admin: 03/19/17 02:26 Dose: 0.5 mg Meropenem 500 mg/ Sodium (Chloride) 100 mls @ 100 mls/hr IVPB Q24H [facility] Last Admin: 03/19/17 10:47 Dose: 100 mls/hr Insulin Glargine (Lantus) 10 unit SC HS [facility] Last Admin: 03/18/17 21:59 Dose: 10 units Insulin Human Regular (Novolin R) 0 unit SC ACHS [facility] PRN Reason: Protocol Last Admin: 03/19/17 10:19 Dose: Not Given Linezolid (Zyvox) 600 mg PO Q12 [facility] Last Admin: 03/19/17 10:42 Dose: 600 mg Losartan Potassium (Cozaar) 100 mg PO DAILY@1800 [facility] Last Admin: 03/18/17 18:28 Dose: 100 mg Morphine Sulfate (Morphine) 2 mg IVP Q3 PRN PRN Reason: Pain, moderate (4-7) Last Admin: 03/19/17 11:05 Dose: 2 mg Petrolatum (Desitin Original) 0 gm TOP BID [facility] Last Admin: 03/19/17 10:52 Dose: 1 applic Saccharomyces Boulardii (Florastor) 250 mg PO DAILY [facility] Last Admin: 03/19/17 10:42 Dose: 250 mg Sevelamer Carbonate (Renvela) 1.6 gm PO TIDCC [facility] Last Admin: 03/19/17 08:43 Dose: 1.6 gm Vitamin A (Vitamin A & D Oint Ud Foilpak) 1 ea TOP BID PRN PRN Reason: Dry skin Last Admin: 03/17/17 10:02 Dose: 1 ea - Labs Labs: 03/16/17 07:52 03/16/17 07:52 PT 11.7 SECONDS (9.7-12.2) 03/13/17 08:31 INR 1.0 03/13/17 08:31 APTT 41 SECONDS (21-34) H 03/13/17 08:31 - Constitutional Appears: No Acute Distress, Chronically Ill - Head Exam Head Exam: NORMAL INSPECTION - Eye Exam Eye Exam: Normal appearance - ENT Exam ENT Exam: Mucous Membranes Moist, Normal Exam - Neck Exam Neck Exam: Normal Inspection - Respiratory Exam Respiratory Exam: Clear to Ausculation Bilateral, NORMAL BREATHING PATTERN - Cardiovascular Exam Cardiovascular Exam: REGULAR RHYTHM, RRR - GI/Abdominal Exam GI & Abdominal Exam: Distended (pd fluid), Soft - Extremities Exam Extremities Exam: Normal Inspection (left foot in dressing) Assessment and Plan (1) Gangrene of right foot Status: Acute (2) Anemia Status: Acute (3) Diabetes mellitus Status: Acute (4) ESRD on peritoneal dialysis Status: Acute (5) Hyperkalemia Status: Acute (6) Hypertension Status: Acute - Assessment and Plan (Free Text) Assessment: maintain pd check labs tomorrow am lactulose for constipation
--- NOTE | 2017-03-19 12:33 | CP.PCM.PN ---
Subjective - Date & Time of Evaluation Date of Evaluation: 03/19/17 Time of Evaluation: 09:31 - Subjective Subjective: Podiatry progress note- Dr. Ordonez 51 year old female patient seen at bedside 6 days s/p right foot wound debridement of non-healing amputation site. Patient resting comfortably at time of visit, AAOx3 and NAD. Patient states that she experiences great pain when changing the dressing (Wound VAC). Patient denies N/V/F/D/C/SOB/calf pain. Offers no other pedal complaints at this time. Objective - Vital Signs/Intake and Output Vital Signs (last 24 hours): Temp Pulse Resp BP Pulse Ox 98.0 F 89 20 135/64 97 03/19/17 07:00 03/19/17 07:00 03/19/17 07:00 03/19/17 10:48 03/19/17 07:00 Intake and Output: 03/19/17 03/19/17 06:59 18:59 Intake Total 120 Balance 120 - Medications Medications: Current Medications Acetaminophen (Tylenol 325mg Tab) 650 mg PO Q6 PRN PRN Reason: Pain, Mild (1-3) Last Admin: 03/17/17 22:53 Dose: 650 mg Acyclovir (Zovirax 5% Oint) 0 gm EXT Q3H [facility] Last Admin: 03/19/17 10:50 Dose: 1 applic Amlodipine Besylate (Norvasc) 10 mg PO DAILY [facility] Last Admin: 03/19/17 10:48 Dose: 10 mg Benzoin (Benzoin Compound Tincture) 2 ml TOP DAILY [facility] Last Admin: 03/19/17 11:06 Dose: Not Given Betamethasone/Clotrimazole (Lotrisone) 1 gm TOP BID [facility] Last Admin: 03/19/17 10:51 Dose: 1 applic Carvedilol (Coreg) 12.5 mg PO BID [facility] Last Admin: 03/19/17 10:48 Dose: 12.5 mg Clopidogrel Bisulfate (Plavix) 75 mg PO DAILY [facility] Last Admin: 03/19/17 10:42 Dose: 75 mg Dextrose (Dextrose 50% Inj) 0 ml IV STAT PRN; Protocol PRN Reason: Hyglycemia Protocol Last Admin: 03/13/17 07:17 Dose: 25 ml Dextrose (Glutose 15) 0 gm PO ONCE PRN; Protocol PRN Reason: Hypoglycemia Protocol Diphenhydramine HCl (Benadryl) 25 mg IVP Q4 PRN PRN Reason: Itching / Pruritus Last Admin: 03/19/17 11:05 Dose: 25 mg Epoetin Alec (Procrit) 10,000 unit SC MWF [facility] Last Admin: 03/18/17 21:58 Dose: 10,000 unit Hydromorphone HCl (Dilaudid) 0.5 mg IVP Q5H PRN PRN Reason: Pain, severe (8-10) Last Admin: 03/19/17 02:26 Dose: 0.5 mg Meropenem 500 mg/ Sodium (Chloride) 100 mls @ 100 mls/hr IVPB Q24H [facility] Last Admin: 03/19/17 10:47 Dose: 100 mls/hr Insulin Glargine (Lantus) 10 unit SC HS [facility] Last Admin: 03/18/17 21:59 Dose: 10 units Insulin Human Regular (Novolin R) 0 unit SC ACHS [facility] PRN Reason: Protocol Last Admin: 03/19/17 12:06 Dose: Not Given Linezolid (Zyvox) 600 mg PO Q12 [facility] Last Admin: 03/19/17 10:42 Dose: 600 mg Losartan Potassium (Cozaar) 100 mg PO DAILY@1800 [facility] Last Admin: 03/18/17 18:28 Dose: 100 mg Morphine Sulfate (Morphine) 2 mg IVP Q3 PRN PRN Reason: Pain, moderate (4-7) Last Admin: 03/19/17 11:05 Dose: 2 mg Petrolatum (Desitin Original) 0 gm TOP BID [facility] Last Admin: 03/19/17 10:52 Dose: 1 applic Saccharomyces Boulardii (Florastor) 250 mg PO DAILY [facility] Last Admin: 03/19/17 10:42 Dose: 250 mg Sevelamer Carbonate (Renvela) 1.6 gm PO TIDCC [facility] Last Admin: 03/19/17 12:30 Dose: 1.6 gm Vitamin A (Vitamin A & D Oint Ud Foilpak) 1 ea TOP BID PRN PRN Reason: Dry skin Last Admin: 03/17/17 10:02 Dose: 1 ea - Labs Labs: 03/16/17 07:52 03/16/17 07:52 PT 11.7 SECONDS (9.7-12.2) 03/13/17 08:31 INR 1.0 03/13/17 08:31 APTT 41 SECONDS (21-34) H 03/13/17 08:31 - Constitutional Appears: Well, Non-toxic, No Acute Distress - Head Exam Head Exam: ATRAUMATIC - Extremities Exam Additional comments: LE exam: Dressings to both feet appears c/d/i VASC- DP pulse is palpable, PT pulse non-palpable, skin temp runs warm to warm ( from proximal to distal), CFT < 3 sec to amputation flap, no pedal edema DERM- Open surgical site wound measuring 6.7cm x 5 cm with medial and intermediate cuneiform bones exposed. No purulence noted. No mal-odor noted. Bones exposed. Limited wound site perfusion noted. NERUO: Pedal sensation intact. ORTHO- moderate pain to palpation of all aspects of Lesfranc level amputation stump - Neurological Exam Neurological Exam: Alert, Awake, Oriented x3 - Psychiatric Exam Psychiatric exam: Normal Affect, Normal Mood - Skin Skin Exam: Normal Color, Warm Assessment and Plan - Assessment and Plan (Free Text) Assessment: 51 y/o female patient 1) 5 days s/p right foot wound debridement. 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 Plan: Patient seen and evaluated at bedside Discussed with attending, Dr. Ordonez Labs and vitals reviewed = afebrile WoundVAC to be changed by podiatry resident Saturday Continue with multipodus boots at all times while in bed Strict NWB bilateral lower extremity Pending [place] placement -[facility] NURSING ORDERS: RIGHT SIDE AMPUTATION TO BE CHANGED WITH WOUNDVAC EVERY 3 DAYS ON OUTPATIENT [place] FACILITY. SANTYL APPLICATION AND DRY STERILE DRESSING RYAN WRAP Stable from podiatry standpoint for discharge Podiatry will continue to follow patient while in house
--- NOTE | 2017-03-19 17:38 | CARD ---
APPROVED REPORT EKG Measurement Heart [id number] <Conclusion> Sinus tachycardia Abnormal ECG
--- NOTE | 2017-03-19 20:24 | CP.PCM.PN ---
Subjective - Date & Time of Evaluation Date of Evaluation: 03/19/17 Time of Evaluation: 20:07 - Subjective Subjective: today she had severe leg pain pain meds not controlling the phantom pain much her symptoms worsening at times she is getting the peritoneal pd left heel pain noted Temp Pulse Resp BP Pulse Ox 98.1 F 91 H 18 144/73 95 03/19/17 16:00 03/19/17 17:05 03/19/17 16:00 03/19/17 17:12 03/19/17 16:00 chest good air entry regular hs abd soft left heel small necrotic area pain a/p: pt with long standing DM esrd htn severe PVD ischemic legs on meds antiplatelets 1) 5 days s/p right foot wound debridement. 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 on wound vac to the rt foot Objective - Vital Signs/Intake and Output Vital Signs (last 24 hours): Temp Pulse Resp BP Pulse Ox 98.1 F 91 H 18 144/73 95 03/19/17 16:00 03/19/17 17:05 03/19/17 16:00 03/19/17 17:12 03/19/17 16:00 - Medications Medications: Current Medications Acetaminophen (Tylenol 325mg Tab) 650 mg PO Q6 PRN PRN Reason: Pain, Mild (1-3) Last Admin: 03/17/17 22:53 Dose: 650 mg Acyclovir (Zovirax 5% Oint) 0 gm EXT Q3H [facility] Last Admin: 03/19/17 17:15 Dose: 1 applic Amlodipine Besylate (Norvasc) 10 mg PO DAILY [facility] Last Admin: 03/19/17 10:48 Dose: 10 mg Benzoin (Benzoin Compound Tincture) 2 ml TOP DAILY [facility] Last Admin: 03/19/17 11:06 Dose: Not Given Betamethasone/Clotrimazole (Lotrisone) 1 gm TOP BID [facility] Last Admin: 03/19/17 17:17 Dose: 1 applic Carvedilol (Coreg) 12.5 mg PO BID [facility] Last Admin: 03/19/17 17:12 Dose: 12.5 mg Clopidogrel Bisulfate (Plavix) 75 mg PO DAILY [facility] Last Admin: 03/19/17 10:42 Dose: 75 mg Dextrose (Dextrose 50% Inj) 0 ml IV STAT PRN; Protocol PRN Reason: Hyglycemia Protocol Last Admin: 03/13/17 07:17 Dose: 25 ml Dextrose (Glutose 15) 0 gm PO ONCE PRN; Protocol PRN Reason: Hypoglycemia Protocol Diphenhydramine HCl (Benadryl) 25 mg IVP Q4 PRN PRN Reason: Itching / Pruritus Last Admin: 03/19/17 17:12 Dose: 25 mg Epoetin Alec (Procrit) 10,000 unit SC MWF [facility] Last Admin: 03/18/17 21:58 Dose: 10,000 unit Hydromorphone HCl (Dilaudid) 0.5 mg IVP Q5H PRN PRN Reason: Pain, severe (8-10) Last Admin: 03/19/17 13:02 Dose: 0.5 mg Meropenem 500 mg/ Sodium (Chloride) 100 mls @ 100 mls/hr IVPB Q24H [facility] Last Admin: 03/19/17 10:47 Dose: 100 mls/hr Insulin Glargine (Lantus) 10 unit SC HS [facility] Last Admin: 03/18/17 21:59 Dose: 10 units Lactulose (Enulose) 20 gm PO DAILY PRN PRN Reason: Constipation Linezolid (Zyvox) 600 mg PO Q12 [facility] Last Admin: 03/19/17 10:42 Dose: 600 mg Losartan Potassium (Cozaar) 100 mg PO DAILY@1800 [facility] Last Admin: 03/19/17 17:11 Dose: 100 mg Morphine Sulfate (Morphine) 2 mg IVP Q3 PRN PRN Reason: Pain, moderate (4-7) Last Admin: 03/19/17 17:12 Dose: 2 mg Petrolatum (Desitin Original) 0 gm TOP BID [facility] Last Admin: 03/19/17 18:45 Dose: Not Given Saccharomyces Boulardii (Florastor) 250 mg PO DAILY [facility] Last Admin: 03/19/17 10:42 Dose: 250 mg Sevelamer Carbonate (Renvela) 1.6 gm PO TIDCC [facility] Last Admin: 03/19/17 12:30 Dose: 1.6 gm Vitamin A (Vitamin A & D Oint Ud Foilpak) 1 ea TOP BID PRN PRN Reason: Dry skin Last Admin: 03/17/17 10:02 Dose: 1 ea - Labs Labs: 03/16/17 07:52 03/16/17 07:52 PT 11.7 SECONDS (9.7-12.2) 03/13/17 08:31 INR 1.0 03/13/17 08:31 APTT 41 SECONDS (21-34) H 03/13/17 08:31
[2017-03-19] MEDS: (Lantus) Insulin Glargine, Recombinant SC SCH (22:01)
[2017-03-20] MEDS: DiphenhydrAMINE 50 mg/ml Inj IVP PRN ×5 (02:15→22:03)
[2017-03-20] MEDS: Acyclovir 5% Oint (15 gm) EXT SCH ×9 (02:24→23:35)
[2017-03-20 07:48] LABS: HEMATOCRIT 24.6 % (34.0-47.0); MEAN CORPUSCULAR HEMOGLOBIN 30.7 pg (27.0-31.0); MEAN CORPUSCULAR HGB CONC 32.6 g/dL (33.0-37.0); MEAN PLATELET VOLUME 7.7 fL (7.2-11.7); WHITE BLOOD COUNT 8.8 K/uL (4.8-10.8)
[2017-03-20 08:01] LABS: CALCIUM 9.3 mg/dl (8.6-10.4)
[2017-03-20] MEDS: Sevelamer Carb 0.8 gm/Packet PO SCH ×3 (09:08→17:34)
[2017-03-20] MEDS: Zinc Oxide Topical 30 gm Tube TOP SCH ×2 (11:00→19:00)
[2017-03-20] MEDS: HYDROmorphone 0.5 mg/0.5 ml ISec IVP PRN ×2 (11:14→20:12)
--- NOTE | 2017-03-20 12:22 | CP.PCM.PN ---
Subjective - Date & Time of Evaluation Date of Evaluation: 03/20/17 Time of Evaluation: 10:50 - Subjective Subjective: Podiatry progress note- Dr. Ordonez 51 year old female patient seen at bedside 7 days s/p right foot wound debridement of non-healing amputation site. Patient resting comfortably at time of visit, AAOx3 and NAD. Patient denies N/V/F/D/C/SOB/calf pain. Offers no other pedal complaints at this time. Rounded wiht Dr. Ordonez this AM. Wound VAC is changed. Patient was informed that the tissue to right distal foot appears cyanotic and discussed the possibility of turning non-viable in future, but we will try wound VAC therapy attempt to avoid it Objective - Vital Signs/Intake and Output Vital Signs (last 24 hours): Temp Pulse Resp BP Pulse Ox 97.9 F 84 20 121/62 96 03/20/17 08:34 03/20/17 08:34 03/20/17 08:34 03/20/17 08:34 03/20/17 08:34 - Medications Medications: Current Medications Acetaminophen (Tylenol 325mg Tab) 650 mg PO Q6 PRN PRN Reason: Pain, Mild (1-3) Last Admin: 03/17/17 22:53 Dose: 650 mg Acyclovir (Zovirax 5% Oint) 0 gm EXT Q3H [facility] Last Admin: 03/20/17 09:10 Dose: 1 applic Amlodipine Besylate (Norvasc) 10 mg PO DAILY [facility] Last Admin: 03/19/17 10:48 Dose: 10 mg Benzoin (Benzoin Compound Tincture) 2 ml TOP DAILY [facility] Last Admin: 03/19/17 11:06 Dose: Not Given Betamethasone/Clotrimazole (Lotrisone) 1 gm TOP BID [facility] Last Admin: 03/19/17 17:17 Dose: 1 applic Carvedilol (Coreg) 12.5 mg PO BID [facility] Last Admin: 03/19/17 17:12 Dose: 12.5 mg Clopidogrel Bisulfate (Plavix) 75 mg PO DAILY [facility] Last Admin: 03/19/17 10:42 Dose: 75 mg Dextrose (Dextrose 50% Inj) 0 ml IV STAT PRN; Protocol PRN Reason: Hyglycemia Protocol Last Admin: 03/13/17 07:17 Dose: 25 ml Dextrose (Glutose 15) 0 gm PO ONCE PRN; Protocol PRN Reason: Hypoglycemia Protocol Diphenhydramine HCl (Benadryl) 25 mg IVP Q4 PRN PRN Reason: Itching / Pruritus Last Admin: 03/20/17 11:14 Dose: 25 mg Epoetin Alec (Procrit) 10,000 unit SC MWF [facility] Last Admin: 03/18/17 21:58 Dose: 10,000 unit Hydromorphone HCl (Dilaudid) 0.5 mg IVP Q5H PRN PRN Reason: Pain, severe (8-10) Last Admin: 03/20/17 11:14 Dose: 0.5 mg Meropenem 500 mg/ Sodium (Chloride) 100 mls @ 100 mls/hr IVPB Q24H [facility] Last Admin: 03/19/17 10:47 Dose: 100 mls/hr Insulin Glargine (Lantus) 10 unit SC HS [facility] Last Admin: 03/19/17 22:01 Dose: 10 units Lactulose (Enulose) 20 gm PO DAILY PRN PRN Reason: Constipation Linezolid (Zyvox) 600 mg PO Q12 [facility] Last Admin: 03/20/17 09:09 Dose: 600 mg Losartan Potassium (Cozaar) 100 mg PO DAILY@1800 [facility] Last Admin: 03/19/17 17:11 Dose: 100 mg Morphine Sulfate (Morphine) 2 mg IVP Q3 PRN PRN Reason: Pain, moderate (4-7) Last Admin: 03/20/17 07:25 Dose: 2 mg Petrolatum (Desitin Original) 0 gm TOP BID [facility] Last Admin: 03/19/17 18:45 Dose: Not Given Saccharomyces Boulardii (Florastor) 250 mg PO DAILY [facility] Last Admin: 03/19/17 10:42 Dose: 250 mg Sevelamer Carbonate (Renvela) 1.6 gm PO TIDCC [facility] Last Admin: 03/20/17 09:08 Dose: 1.6 gm Vitamin A (Vitamin A & D Oint Ud Foilpak) 1 ea TOP BID PRN PRN Reason: Dry skin Last Admin: 03/17/17 10:02 Dose: 1 ea - Labs Labs: 03/20/17 07:37 03/20/17 07:37 PT 11.7 SECONDS (9.7-12.2) 03/13/17 08:31 INR 1.0 03/13/17 08:31 APTT 41 SECONDS (21-34) H 03/13/17 08:31 - Constitutional Appears: Well, Non-toxic, No Acute Distress - Head Exam Head Exam: ATRAUMATIC - Extremities Exam Additional comments: LE exam: Dressings to both feet appears c/d/i VASC- DP pulse is palpable, PT pulse non-palpable, skin temp runs warm to warm ( from proximal to distal), CFT < 3 sec to amputation flap, no pedal edema DERM- Open surgical site wound measuring 6.7cm x 5 cm with medial and intermediate cuneiform bones exposed. No purulence noted. No mal-odor noted. Bones exposed. Limited wound site perfusion noted. Slight cyanotic discoloration noted to distal aspect of right foot amputation site NERUO: Pedal sensation intact. ORTHO- moderate pain to palpation of all aspects of Lesfranc level amputation stump - Neurological Exam Neurological Exam: Alert, Awake, Oriented x3 - Psychiatric Exam Psychiatric exam: Normal Affect, Normal Mood - Skin Skin Exam: Normal Color, Warm Assessment and Plan - Assessment and Plan (Free Text) Assessment: 51 y/o female patient 1) 5 days s/p right foot wound debridement. 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 Plan: Patient seen and evaluated at bedside Roundedwith attending, Dr. Ordonez Labs and vitals reviewed = afebrile WoundVAC was changed by podiatry today Left foot was dressed with Santyl, DSD Continue with multipodus boots at all times while in bed bilaterally Strict NWB bilateral lower extremity Pending [place] placement -[place] NURSING ORDERS: RIGHT SIDE AMPUTATION TO BE CHANGED WITH WOUNDVAC EVERY 3 DAYS ON OUTPATIENT [place] FACILITY. LEFT: SANTYL APPLICATION AND DRY STERILE DRESSING RYAN WRAP Stable from podiatry standpoint for discharge Podiatry will continue to follow patient while in house
[2017-03-20] MEDS: Saccharomyces Boulardi 250 mg Cap PO SCH ×2 (12:45→12:48)
[2017-03-20] MEDS: Clotrimazole/Betamethasone Cream(15 gm) TOP SCH ×2 (12:49→19:00)
[2017-03-20] MEDS: Benzoin Compound Tincture (60 ml) TOP SCH (12:50)
[2017-03-20] MEDS: EPOETIN ALFA 10,000 UNIT/ML ML SC SCH ×2 (13:05→17:34)
[2017-03-20] MEDS: Meropenem 500 MG in Sodium Chloride 0.9% 100 ML IVPB SCH (13:16)
--- NOTE | 2017-03-20 13:28 | CP.PCM.PN ---
Subjective - Date & Time of Evaluation Date of Evaluation: 03/20/17 Time of Evaluation: 13:26 - Subjective Subjective: s/p wound cleaning, change wound VAC In much pain- receiving pain meds increase doses now Picture of wound reveals poor healing process BP labile - usually controlled better PD going well; chemistries acceptable Objective - Vital Signs/Intake and Output Vital Signs (last 24 hours): Temp Pulse Resp BP Pulse Ox 97.9 F 84 20 187/87 H 96 03/20/17 08:34 03/20/17 08:34 03/20/17 08:34 03/20/17 12:56 03/20/17 08:34 - Medications Medications: Current Medications Acetaminophen (Tylenol 325mg Tab) 650 mg PO Q6 PRN PRN Reason: Pain, Mild (1-3) Last Admin: 03/17/17 22:53 Dose: 650 mg Acyclovir (Zovirax 5% Oint) 0 gm EXT Q3H [facility] Last Admin: 03/20/17 09:10 Dose: 1 applic Amlodipine Besylate (Norvasc) 10 mg PO DAILY [facility] Last Admin: 03/20/17 12:47 Dose: 10 mg Benzoin (Benzoin Compound Tincture) 2 ml TOP DAILY [facility] Last Admin: 03/20/17 12:50 Dose: 2 ml Betamethasone/Clotrimazole (Lotrisone) 1 gm TOP BID [facility] Last Admin: 03/20/17 12:49 Dose: 1 applic Carvedilol (Coreg) 12.5 mg PO BID [facility] Last Admin: 03/20/17 12:56 Dose: 12.5 mg Clopidogrel Bisulfate (Plavix) 75 mg PO DAILY [facility] Last Admin: 03/20/17 12:48 Dose: 75 mg Dextrose (Dextrose 50% Inj) 0 ml IV STAT PRN; Protocol PRN Reason: Hyglycemia Protocol Last Admin: 03/13/17 07:17 Dose: 25 ml Dextrose (Glutose 15) 0 gm PO ONCE PRN; Protocol PRN Reason: Hypoglycemia Protocol Diphenhydramine HCl (Benadryl) 25 mg IVP Q4 PRN PRN Reason: Itching / Pruritus Last Admin: 03/20/17 11:14 Dose: 25 mg Epoetin Alec (Procrit) 10,000 unit SC [facility] Last Admin: 03/20/17 13:05 Dose: Not Given Hydromorphone HCl (Dilaudid) 0.5 mg IVP Q5H PRN PRN Reason: Pain, severe (8-10) Last Admin: 03/20/17 11:14 Dose: 0.5 mg Meropenem 500 mg/ Sodium (Chloride) 100 mls @ 100 mls/hr IVPB Q24H [facility] Last Admin: 03/20/17 13:16 Dose: 100 mls/hr Insulin Glargine (Lantus) 10 unit SC HS [facility] Last Admin: 03/19/17 22:01 Dose: 10 units Lactulose (Enulose) 20 gm PO DAILY PRN PRN Reason: Constipation Linezolid (Zyvox) 600 mg PO Q12 [facility] Last Admin: 03/20/17 09:09 Dose: 600 mg Losartan Potassium (Cozaar) 100 mg PO DAILY@1800 [facility] Last Admin: 03/19/17 17:11 Dose: 100 mg Morphine Sulfate (Morphine) 2 mg IVP Q3 PRN PRN Reason: Pain, moderate (4-7) Last Admin: 03/20/17 12:48 Dose: 2 mg Petrolatum (Desitin Original) 0 gm TOP BID [facility] Last Admin: 03/19/17 18:45 Dose: Not Given Saccharomyces Boulardii (Florastor) 250 mg PO DAILY [facility] Last Admin: 03/20/17 12:48 Dose: 250 mg Sevelamer Carbonate (Renvela) 1.6 gm PO TIDCC [facility] Last Admin: 03/20/17 13:16 Dose: 1.6 gm Vitamin A (Vitamin A & D Oint Ud Foilpak) 1 ea TOP BID PRN PRN Reason: Dry skin Last Admin: 03/17/17 10:02 Dose: 1 ea - Labs Labs: 03/20/17 07:37 03/20/17 07:37 PT 11.7 SECONDS (9.7-12.2) 03/13/17 08:31 INR 1.0 03/13/17 08:31 APTT 41 SECONDS (21-34) H 03/13/17 08:31 - Constitutional Appears: No Acute Distress, Chronically Ill - Head Exam Head Exam: ATRAUMATIC, NORMAL INSPECTION - Eye Exam Eye Exam: EOMI, Normal appearance - Neck Exam Neck Exam: Normal Inspection. absent: Tenderness - Respiratory Exam Respiratory Exam: Clear to Ausculation Bilateral, NORMAL BREATHING PATTERN - Cardiovascular Exam Cardiovascular Exam: REGULAR RHYTHM, +S1 - GI/Abdominal Exam GI & Abdominal Exam: Soft. absent: Tenderness - Extremities Exam Extremities Exam: Normal Inspection. absent: Tenderness - Neurological Exam Neurological Exam: Altered, CN II-XII Intact - Psychiatric Exam Psychiatric exam: Anxious, Flat Affect - Skin Skin Exam: Dry, Warm Assessment and Plan (1) Type 1 diabetes mellitus with diabetic nephropathy Status: Acute (2) Gangrene of right foot Status: Acute (3) End stage renal disease Status: Acute - Assessment and Plan (Free Text) Plan: IV ABs Monitor BP Wound care, wound VAC Same PD consider BKA for better healing process
[2017-03-20] MEDS: (Novolin R) Insulin Human Regular 100 units/ml vial SC SCH ×2 (17:06→21:32)
--- NOTE | 2017-03-20 18:15 | CP.PCM.PN ---
Subjective - Date & Time of Evaluation Date of Evaluation: 03/20/17 Time of Evaluation: 09:00 - Subjective Subjective: 7 days s/p right foot wound debridement of non-healing amputation site Open surgical site wound measuring 6.7cm x 5 cm with medial and intermediate cuneiform bones exposed. No purulence noted. No mal-odor noted. Bones exposed. Limited wound site perfusion noted. Slight cyanotic discoloration noted to distal aspect of right foot amputation site consider vascular re-eval poor prognosis Objective - Vital Signs/Intake and Output Vital Signs (last 24 hours): Temp Pulse Resp BP Pulse Ox 97.6 F 92 H 20 131/64 99 03/20/17 17:23 03/20/17 17:23 03/20/17 17:23 03/20/17 17:23 03/20/17 17:23 - Medications Medications: Current Medications Acetaminophen (Tylenol 325mg Tab) 650 mg PO Q6 PRN PRN Reason: Pain, Mild (1-3) Last Admin: 03/17/17 22:53 Dose: 650 mg Acyclovir (Zovirax 5% Oint) 0 gm EXT Q3H [facility] Last Admin: 03/20/17 17:10 Dose: Not Given Amlodipine Besylate (Norvasc) 10 mg PO DAILY [facility] Last Admin: 03/20/17 12:47 Dose: 10 mg Benzoin (Benzoin Compound Tincture) 2 ml TOP DAILY [facility] Last Admin: 03/20/17 12:50 Dose: 2 ml Betamethasone/Clotrimazole (Lotrisone) 1 gm TOP BID [facility] Last Admin: 03/20/17 12:49 Dose: 1 applic Carvedilol (Coreg) 12.5 mg PO BID [facility] Last Admin: 03/20/17 17:32 Dose: Not Given Clopidogrel Bisulfate (Plavix) 75 mg PO DAILY [facility] Last Admin: 03/20/17 12:48 Dose: 75 mg Dextrose (Dextrose 50% Inj) 0 ml IV STAT PRN; Protocol PRN Reason: Hyglycemia Protocol Last Admin: 03/13/17 07:17 Dose: 25 ml Dextrose (Glutose 15) 0 gm PO ONCE PRN; Protocol PRN Reason: Hypoglycemia Protocol Diphenhydramine HCl (Benadryl) 25 mg IVP Q4 PRN PRN Reason: Itching / Pruritus Last Admin: 03/20/17 17:33 Dose: 25 mg Epoetin Alec (Procrit) 10,000 unit SC MWF [facility] Last Admin: 03/20/17 17:34 Dose: 10,000 unit Hydromorphone HCl (Dilaudid) 0.5 mg IVP Q5H PRN PRN Reason: Pain, severe (8-10) Last Admin: 03/20/17 11:14 Dose: 0.5 mg Meropenem 500 mg/ Sodium (Chloride) 100 mls @ 100 mls/hr IVPB Q24H [facility] Last Admin: 03/20/17 13:16 Dose: 100 mls/hr Insulin Glargine (Lantus) 10 unit SC HS [facility] Last Admin: 03/19/17 22:01 Dose: 10 units Insulin Human Regular (Novolin R) 0 unit SC ACHS [facility] PRN Reason: Protocol Last Admin: 03/20/17 17:06 Dose: Not Given Lactulose (Enulose) 20 gm PO DAILY PRN PRN Reason: Constipation Linezolid (Zyvox) 600 mg PO Q12 [facility] Last Admin: 03/20/17 09:09 Dose: 600 mg Losartan Potassium (Cozaar) 100 mg PO DAILY@1800 [facility] Last Admin: 03/20/17 17:33 Dose: Not Given Morphine Sulfate (Morphine) 2 mg IVP Q3 PRN PRN Reason: Pain, moderate (4-7) Last Admin: 03/20/17 17:33 Dose: 2 mg Petrolatum (Desitin Original) 0 gm TOP BID [facility] Last Admin: 03/20/17 11:00 Dose: Not Given Saccharomyces Boulardii (Florastor) 250 mg PO DAILY [facility] Last Admin: 03/20/17 12:48 Dose: 250 mg Sevelamer Carbonate (Renvela) 1.6 gm PO TIDCC [facility] Last Admin: 03/20/17 17:34 Dose: 1.6 gm Vitamin A (Vitamin A & D Oint Ud Foilpak) 1 ea TOP BID PRN PRN Reason: Dry skin Last Admin: 03/17/17 10:02 Dose: 1 ea - Labs Labs: 03/20/17 07:37 03/20/17 07:37 PT 11.7 SECONDS (9.7-12.2) 03/13/17 08:31 INR 1.0 03/13/17 08:31 APTT 41 SECONDS (21-34) H 03/13/17 08:31 Assessment and Plan (1) Gangrene of right foot Status: Acute (2) Chronic anemia Status: Acute (3) Chronic congestive heart failure Status: Acute (4) Diabetes mellitus Status: Acute (5) ESRD on peritoneal dialysis Status: Acute - Assessment and Plan (Free Text) Assessment: 7 days s/p right foot wound debridement of non-healing amputation site Open surgical site wound measuring 6.7cm x 5 cm with medial and intermediate cuneiform bones exposed. No purulence noted. No mal-odor noted. Bones exposed. Limited wound site perfusion noted. Slight cyanotic discoloration noted to distal aspect of right foot amputation site consider vascular re-eval poor prognosis
[2017-03-20] MEDS: (Lantus) Insulin Glargine, Recombinant SC SCH (22:01)
--- NOTE | 2017-03-20 22:16 | CP.PCM.PN ---
Subjective - Date & Time of Evaluation Date of Evaluation: 03/20/17 Time of Evaluation: 22:16 - Subjective Subjective: The right foot wound is reviewed by the non destructive tester. Currently patient is having the wound suction. According to the podiatry evaluation it is not healing well. By that time to his being made to save the foot as possible, but viability of the tissue is in question Patient is still having increasing pain Her intake is okay, blood sugar is stable. Vital signs are stable. Receiving peritoneal dialysis Temp Pulse Resp BP Pulse Ox 98.3 F 94 H 20 116/70 96 03/21/17 00:01 03/21/17 00:01 03/21/17 00:01 03/21/17 00:01 03/21/17 00:01 Clinically otherwise unremarkable except severe pain. Right leg surgical intervention, and also wound debridement was done Left heel mildly ecchymotic lesion noted seen by a non destructive tester 03/20/17 07:37 03/20/17 07:37 Continue to monitor. Glucose control. Assessment and recommendation: 51-year-old female with a history of long-standing diabetes, complicated with both micro-and macrovascular disease, and also underwent a surgical intervention including a right femoral tibial bypass, and the intervention stent placement. Still there is not improvement in the circulation noted. Patient is at high risk for below-knee amputation. Recurrent sepsis. She had a history of congestive heart failure in the past. Pleural effusion in the past. Uncontrolled diabetes. We'll follow the patient Objective - Vital Signs/Intake and Output Vital Signs (last 24 hours): Temp Pulse Resp BP Pulse Ox 97.6 F 92 H 20 131/64 99 03/20/17 17:23 03/20/17 17:23 03/20/17 17:23 03/20/17 17:23 03/20/17 17:23 - Medications Medications: Current Medications Acetaminophen (Tylenol 325mg Tab) 650 mg PO Q6 PRN PRN Reason: Pain, Mild (1-3) Last Admin: 03/17/17 22:53 Dose: 650 mg Acyclovir (Zovirax 5% Oint) 0 gm EXT Q3H [facility] Last Admin: 03/20/17 19:00 Dose: 1 applic Amlodipine Besylate (Norvasc) 10 mg PO DAILY [facility] Last Admin: 03/20/17 12:47 Dose: 10 mg Benzoin (Benzoin Compound Tincture) 2 ml TOP DAILY [facility] Last Admin: 03/20/17 12:50 Dose: 2 ml Betamethasone/Clotrimazole (Lotrisone) 1 gm TOP BID [facility] Last Admin: 03/20/17 19:00 Dose: 1 applic Carvedilol (Coreg) 12.5 mg PO BID [facility] Last Admin: 03/20/17 17:32 Dose: Not Given Clopidogrel Bisulfate (Plavix) 75 mg PO DAILY [facility] Last Admin: 03/20/17 12:48 Dose: 75 mg Dextrose (Dextrose 50% Inj) 0 ml IV STAT PRN; Protocol PRN Reason: Hyglycemia Protocol Last Admin: 03/13/17 07:17 Dose: 25 ml Dextrose (Glutose 15) 0 gm PO ONCE PRN; Protocol PRN Reason: Hypoglycemia Protocol Diphenhydramine HCl (Benadryl) 25 mg IVP Q4 PRN PRN Reason: Itching / Pruritus Last Admin: 03/20/17 22:03 Dose: 25 mg Epoetin Alec (Procrit) 10,000 unit SC MWF [facility] Last Admin: 03/20/17 17:34 Dose: 10,000 unit Hydromorphone HCl (Dilaudid) 0.5 mg IVP Q5H PRN PRN Reason: Pain, severe (8-10) Last Admin: 03/20/17 20:12 Dose: 0.5 mg Meropenem 500 mg/ Sodium (Chloride) 100 mls @ 100 mls/hr IVPB Q24H [facility] Last Admin: 03/20/17 13:16 Dose: 100 mls/hr Insulin Glargine (Lantus) 10 unit SC HS [facility] Last Admin: 03/20/17 22:01 Dose: 10 units Insulin Human Regular (Novolin R) 0 unit SC ACHS [facility] PRN Reason: Protocol Last Admin: 03/20/17 21:32 Dose: Not Given Lactulose (Enulose) 20 gm PO DAILY PRN PRN Reason: Constipation Linezolid (Zyvox) 600 mg PO Q12 [facility] Last Admin: 03/20/17 22:03 Dose: 600 mg Losartan Potassium (Cozaar) 100 mg PO DAILY@1800 [facility] Last Admin: 03/20/17 22:03 Dose: 100 mg Morphine Sulfate (Morphine) 2 mg IVP Q3 PRN PRN Reason: Pain, moderate (4-7) Last Admin: 03/20/17 22:01 Dose: 2 mg Petrolatum (Desitin Original) 0 gm TOP BID [facility] Last Admin: 03/20/17 19:00 Dose: 1 applic Saccharomyces Boulardii (Florastor) 250 mg PO DAILY [facility] Last Admin: 03/20/17 12:48 Dose: 250 mg Sevelamer Carbonate (Renvela) 1.6 gm PO TIDCC [facility] Last Admin: 03/20/17 17:34 Dose: 1.6 gm Vitamin A (Vitamin A & D Oint Ud Foilpak) 1 ea TOP BID PRN PRN Reason: Dry skin Last Admin: 03/17/17 10:02 Dose: 1 ea - Labs Labs: 03/20/17 07:37 03/20/17 07:37 PT 11.7 SECONDS (9.7-12.2) 03/13/17 08:31 INR 1.0 03/13/17 08:31 APTT 41 SECONDS (21-34) H 03/13/17 08:31
[2017-03-21] MEDS: DiphenhydrAMINE 50 mg/ml Inj IVP PRN ×3 (01:27→22:15)
[2017-03-21] MEDS: Acyclovir 5% Oint (15 gm) EXT SCH ×7 (03:10→23:54)
[2017-03-21] MEDS: Sevelamer Carb 0.8 gm/Packet PO SCH ×3 (09:08→18:30)
[2017-03-21] MEDS: Saccharomyces Boulardi 250 mg Cap PO SCH (09:38)
--- NOTE | 2017-03-21 09:43 | CP.PCM.PN ---
Subjective - Date & Time of Evaluation Date of Evaluation: 03/21/17 Time of Evaluation: 10:50 - Subjective Subjective: Podiatry progress note- Dr. Ordonez 51 year old female patient seen at bedside 8 days s/p right foot wound debridement of non-healing amputation site. Patient resting comfortably at time of visit, AAOx3 and NAD. Patient denies N/V/F/D/C/SOB/calf pain. Patient complains of mild pain to right foot amputation at resting. Patient was educated of possible surgical options of right BKA. Podiatry plans to change wound VAC this Saturday and evaluate. Objective - Vital Signs/Intake and Output Vital Signs (last 24 hours): Temp Pulse Resp BP Pulse Ox 98.3 F 98 H 20 139/76 97 03/21/17 07:00 03/21/17 07:00 03/21/17 07:00 03/21/17 09:38 03/21/17 07:00 - Medications Medications: Current Medications Acetaminophen (Tylenol 325mg Tab) 650 mg PO Q6 PRN PRN Reason: Pain, Mild (1-3) Last Admin: 03/17/17 22:53 Dose: 650 mg Acyclovir (Zovirax 5% Oint) 0 gm EXT Q3H [facility] Last Admin: 03/21/17 05:05 Dose: 1 applic Amlodipine Besylate (Norvasc) 10 mg PO DAILY [facility] Last Admin: 03/21/17 09:37 Dose: 10 mg Benzoin (Benzoin Compound Tincture) 2 ml TOP DAILY [facility] Last Admin: 03/20/17 12:50 Dose: 2 ml Betamethasone/Clotrimazole (Lotrisone) 1 gm TOP BID [facility] Last Admin: 03/20/17 19:00 Dose: 1 applic Carvedilol (Coreg) 12.5 mg PO BID [facility] Last Admin: 03/21/17 09:38 Dose: 12.5 mg Clopidogrel Bisulfate (Plavix) 75 mg PO DAILY [facility] Last Admin: 03/21/17 09:38 Dose: 75 mg Dextrose (Dextrose 50% Inj) 0 ml IV STAT PRN; Protocol PRN Reason: Hyglycemia Protocol Last Admin: 03/13/17 07:17 Dose: 25 ml Dextrose (Glutose 15) 0 gm PO ONCE PRN; Protocol PRN Reason: Hypoglycemia Protocol Diphenhydramine HCl (Benadryl) 25 mg IVP Q4 PRN PRN Reason: Itching / Pruritus Last Admin: 03/21/17 09:14 Dose: 25 mg Epoetin Alec (Procrit) 10,000 unit SC MWF [facility] Last Admin: 03/20/17 17:34 Dose: 10,000 unit Hydromorphone HCl (Dilaudid) 0.5 mg IVP Q5H PRN PRN Reason: Pain, severe (8-10) Last Admin: 03/20/17 20:12 Dose: 0.5 mg Meropenem 500 mg/ Sodium (Chloride) 100 mls @ 100 mls/hr IVPB Q24H [facility] Last Admin: 03/20/17 13:16 Dose: 100 mls/hr Insulin Glargine (Lantus) 10 unit SC HS [facility] Last Admin: 03/20/17 22:01 Dose: 10 units Insulin Human Regular (Novolin R) 0 unit SC ACHS [facility] PRN Reason: Protocol Last Admin: 03/20/17 21:32 Dose: Not Given Lactulose (Enulose) 20 gm PO DAILY PRN PRN Reason: Constipation Linezolid (Zyvox) 600 mg PO Q12 [facility] Last Admin: 03/20/17 22:03 Dose: 600 mg Losartan Potassium (Cozaar) 100 mg PO DAILY@1800 [facility] Last Admin: 03/20/17 22:03 Dose: 100 mg Morphine Sulfate (Morphine) 2 mg IVP Q3 PRN PRN Reason: Pain, moderate (4-7) Last Admin: 03/21/17 09:16 Dose: 2 mg Petrolatum (Desitin Original) 0 gm TOP BID [facility] Last Admin: 03/20/17 19:00 Dose: 1 applic Saccharomyces Boulardii (Florastor) 250 mg PO DAILY [facility] Last Admin: 03/21/17 09:38 Dose: 250 mg Sevelamer Carbonate (Renvela) 1.6 gm PO TIDCC [facility] Last Admin: 03/21/17 09:08 Dose: 1.6 gm Vitamin A (Vitamin A & D Oint Ud Foilpak) 1 ea TOP BID PRN PRN Reason: Dry skin Last Admin: 03/17/17 10:02 Dose: 1 ea - Labs Labs: 03/20/17 07:37 03/20/17 07:37 PT 11.7 SECONDS (9.7-12.2) 03/13/17 08:31 INR 1.0 03/13/17 08:31 APTT 41 SECONDS (21-34) H 03/13/17 08:31 - Constitutional Appears: Well, Non-toxic, No Acute Distress - Extremities Exam Additional comments: Wound VAC to right foot functioning at 100mmHg (decreased from 125mmHg) dressing intact - Neurological Exam Neurological Exam: Alert, Awake, Oriented x3 - Psychiatric Exam Psychiatric exam: Normal Affect, Normal Mood - Skin Skin Exam: Normal Color, Warm Assessment and Plan - Assessment and Plan (Free Text) Assessment: 51 y/o female patient 1) 5 days s/p right foot wound debridement. 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 Plan: Patient seen and evaluated at bedside Roundedwith attending, Dr. Ordonez Labs and vitals reviewed = afebrile WoundVAC to be change this Saturday Left foot was dressed with Santyl, DSD Continue with multipodus boots at all times while in bed bilaterally Strict NWB bilateral lower extremity BKA to be considered per Dr. Ordonez Podiatry will continue to follow patient while in house
[2017-03-21] MEDS: Clotrimazole/Betamethasone Cream(15 gm) TOP SCH ×2 (09:48→18:28)
--- NOTE | 2017-03-21 10:01 | CP.PCM.PN ---
Subjective - Date & Time of Evaluation Date of Evaluation: 03/21/17 Time of Evaluation: 09:59 - Subjective Subjective: Discussed benefits of BKA with patient- considering this Wants discussion with podiatry and vascular. PD going well c/o dry cough no fevers, chills, nausea, vomiting, diarrhea, SOB HTN controlled Same severe anemia Objective - Vital Signs/Intake and Output Vital Signs (last 24 hours): Temp Pulse Resp BP Pulse Ox 98.3 F 98 H 20 139/76 97 03/21/17 07:00 03/21/17 07:00 03/21/17 07:00 03/21/17 09:38 03/21/17 07:00 - Medications Medications: Current Medications Acetaminophen (Tylenol 325mg Tab) 650 mg PO Q6 PRN PRN Reason: Pain, Mild (1-3) Last Admin: 03/17/17 22:53 Dose: 650 mg Acyclovir (Zovirax 5% Oint) 0 gm EXT Q3H [facility] Last Admin: 03/21/17 09:47 Dose: 1 applic Amlodipine Besylate (Norvasc) 10 mg PO DAILY [facility] Last Admin: 03/21/17 09:37 Dose: 10 mg Benzoin (Benzoin Compound Tincture) 2 ml TOP DAILY [facility] Last Admin: 03/20/17 12:50 Dose: 2 ml Betamethasone/Clotrimazole (Lotrisone) 1 gm TOP BID [facility] Last Admin: 03/21/17 09:48 Dose: 1 applic Carvedilol (Coreg) 12.5 mg PO BID [facility] Last Admin: 03/21/17 09:38 Dose: 12.5 mg Clopidogrel Bisulfate (Plavix) 75 mg PO DAILY [facility] Last Admin: 03/21/17 09:38 Dose: 75 mg Dextrose (Dextrose 50% Inj) 0 ml IV STAT PRN; Protocol PRN Reason: Hyglycemia Protocol Last Admin: 03/13/17 07:17 Dose: 25 ml Dextrose (Glutose 15) 0 gm PO ONCE PRN; Protocol PRN Reason: Hypoglycemia Protocol Diphenhydramine HCl (Benadryl) 25 mg IVP Q4 PRN PRN Reason: Itching / Pruritus Last Admin: 03/21/17 09:14 Dose: 25 mg Epoetin Alec (Procrit) 10,000 unit SC [facility] [place] [place] Last Admin: 03/20/17 17:34 Dose: 10,000 unit Hydromorphone HCl (Dilaudid) 0.5 mg IVP Q5H PRN PRN Reason: Pain, severe (8-10) Last Admin: 03/20/17 20:12 Dose: 0.5 mg Meropenem 500 mg/ Sodium (Chloride) 100 mls @ 100 mls/hr IVPB Q24H [facility] Last Admin: 03/20/17 13:16 Dose: 100 mls/hr Insulin Glargine (Lantus) 10 unit SC HS [facility] Last Admin: 03/20/17 22:01 Dose: 10 units Insulin Human Regular (Novolin R) 0 unit SC ACHS [facility] PRN Reason: Protocol Last Admin: 03/20/17 21:32 Dose: Not Given Lactulose (Enulose) 20 gm PO DAILY PRN PRN Reason: Constipation Linezolid (Zyvox) 600 mg PO Q12 [facility] Last Admin: 03/20/17 22:03 Dose: 600 mg Losartan Potassium (Cozaar) 100 mg PO DAILY@1800 [facility] Last Admin: 03/20/17 22:03 Dose: 100 mg Morphine Sulfate (Morphine) 2 mg IVP Q3 PRN PRN Reason: Pain, moderate (4-7) Last Admin: 03/21/17 09:16 Dose: 2 mg Petrolatum (Desitin Original) 0 gm TOP BID [facility] Last Admin: 03/20/17 19:00 Dose: 1 applic Saccharomyces Boulardii (Florastor) 250 mg PO DAILY [facility] Last Admin: 03/21/17 09:38 Dose: 250 mg Sevelamer Carbonate (Renvela) 1.6 gm PO TIDCC [facility] Last Admin: 03/21/17 09:08 Dose: 1.6 gm Vitamin A (Vitamin A & D Oint Ud Foilpak) 1 ea TOP BID PRN PRN Reason: Dry skin Last Admin: 03/17/17 10:02 Dose: 1 ea - Labs Labs: 03/20/17 07:37 03/20/17 07:37 PT 11.7 SECONDS (9.7-12.2) 03/13/17 08:31 INR 1.0 03/13/17 08:31 APTT 41 SECONDS (21-34) H 03/13/17 08:31 - Constitutional Appears: No Acute Distress, Chronically Ill - Head Exam Head Exam: ATRAUMATIC, NORMAL INSPECTION - Eye Exam Eye Exam: EOMI, Normal appearance - Neck Exam Neck Exam: Normal Inspection. absent: Tenderness - Respiratory Exam Respiratory Exam: Rhonchi, NORMAL BREATHING PATTERN - Cardiovascular Exam Cardiovascular Exam: REGULAR RHYTHM, +S1 - GI/Abdominal Exam GI & Abdominal Exam: Soft. absent: Tenderness - Extremities Exam Extremities Exam: Normal Inspection. absent: Tenderness - Neurological Exam Neurological Exam: Alert, CN II-XII Intact - Skin Skin Exam: Dry, Warm Assessment and Plan (1) Type 1 diabetes mellitus with diabetic nephropathy Status: Acute (2) Gangrene of right foot Status: Acute (3) End stage renal disease Status: Acute - Assessment and Plan (Free Text) Plan: Same PD Same EPO Considering BKA nebulizer
[2017-03-21] MEDS ORDERED: Albuterol HFA 90 mcg/actuation (8 g) INH PRN (10:04)
[2017-03-21] MEDS: Meropenem 500 MG in Sodium Chloride 0.9% 100 ML IVPB SCH (11:06)
[2017-03-21] MEDS: Benzoin Compound Tincture (60 ml) TOP SCH (11:31)
[2017-03-21] MEDS: Zinc Oxide Topical 30 gm Tube TOP SCH ×2 (11:32→18:27)
[2017-03-21] MEDS: HYDROmorphone 0.5 mg/0.5 ml ISec IVP PRN ×2 (11:39→18:27)
[2017-03-21] MEDS: Promethazine 12.5 mg/10 ml Syrup PO PRN ×2 (12:46→22:36)
[2017-03-21] MEDS: (Novolin R) Insulin Human Regular 100 units/ml vial SC SCH ×4 (12:47→21:52)
--- NOTE | 2017-03-21 16:20 | VASCLAB ---
STUDY DESCRIPTION: HISTORY: Atherosclerosis PRIORS: Last arterial exam 02/2017. TECHNIQUE: Pulse volume recording waveforms and segmental pressures of bilateral lower extremities at multiple levels were obtained. Ankle Brachial Indices (ABIs) were calculated. Report prepared by KATHY Trent RIGHT LOWER EXTREMITY: * Brachial artery: Unable to obtain due to IV line. * High thigh: Pressure - mmHg: Ratio - : PVR waveform - Reduced * Low thigh: Pressure - mmHg: Ratio - PVR waveform: Reduced * Calf: Pressure - mmHg: Ratio - PVR waveform: Reduced * Posterior tibial Artery: Pressure - >220 mmHg: Ratio - n/c PVR waveform: Reduced * Dorsalis pedis Artery: Pressure - 106 mmHg: Ratio - 0.69 PVR waveform: Reduced Ankle brachial index (XIMENA): 0.69 LEFT LOWER EXTREMITY: * Brachial artery: Pressure - 153 mmHg. * High thigh: Pressure - mmHg: Ratio - : PVR waveform - Reduced * Low thigh: Pressure - mmHg: Ratio - PVR waveform: Reduced * Calf: Pressure - mmHg: Ratio - PVR waveform: Reduced * Posterior tibial Artery: Pressure- non audible pulse PVR waveform: Reduced * Dorsalis pedis Artery: Pressure - 0.44 mmHg: Ratio - PVR waveform: Reduced Ankle brachial index (XIMENA): 0.44 OTHER FINDINGS: IMPRESSION: Right: Reduced ankle brachial index of 0.69. Arterial PVR waveforms are suggestive of mild to moderate arterial insufficiency, beginning from the iliac artery to tibial artery level. Left: Reduced ankle brachial index of 0.44. Arterial PVR waveforms are suggestive of moderate to severe arterial insufficiency, beginning from the iliac artery to tibial artery level. Recommend angiogram with revascularization.
[2017-03-21] MEDS: (Lantus) Insulin Glargine, Recombinant SC SCH (22:15)
[2017-03-22] MEDS: Acyclovir 5% Oint (15 gm) EXT SCH ×3 (02:46→22:10)
[2017-03-22] MEDS: DiphenhydrAMINE 50 mg/ml Inj IVP PRN ×5 (03:12→22:42)
[2017-03-22] MEDS: (Novolin R) Insulin Human Regular 100 units/ml vial SC SCH ×3 (07:51→22:09)
[2017-03-22] MEDS: Sevelamer Carb 0.8 gm/Packet PO SCH ×3 (08:14→18:32)
[2017-03-22] MEDS: EPOETIN ALFA 10,000 UNIT/ML ML SC SCH (09:43)
[2017-03-22] MEDS: Meropenem 500 MG in Sodium Chloride 0.9% 100 ML IVPB SCH (09:44)
[2017-03-22] MEDS: Saccharomyces Boulardi 250 mg Cap PO SCH (09:44)
[2017-03-22] MEDS: Zinc Oxide Topical 30 gm Tube TOP SCH ×2 (09:46→18:32)
[2017-03-22] MEDS: Benzoin Compound Tincture (60 ml) TOP SCH (09:46)
[2017-03-22] MEDS: Clotrimazole/Betamethasone Cream(15 gm) TOP SCH ×2 (09:47→18:00)
[2017-03-22] MEDS: HYDROmorphone 0.5 mg/0.5 ml ISec IVP PRN ×2 (11:57→18:32)
--- NOTE | 2017-03-22 13:04 | CP.PCM.PN ---
Subjective - Date & Time of Evaluation Date of Evaluation: 03/22/17 Time of Evaluation: 13:01 - Subjective Subjective: Patient about same Still with wound VAC, afebrile course, BP controlled no new labs no nausea, vomiting, CPs, diarrhea, SOB Poor healing right TMA site again discussed with patient. She seems acceptable of possible BKA PD going well Objective - Vital Signs/Intake and Output Vital Signs (last 24 hours): Temp Pulse Resp BP Pulse Ox 97.8 F 89 18 102/56 L 93 L 03/22/17 07:51 03/22/17 07:51 03/22/17 07:51 03/22/17 09:52 03/22/17 07:51 - Medications Medications: Current Medications Acetaminophen (Tylenol 325mg Tab) 650 mg PO Q6 PRN PRN Reason: Pain, Mild (1-3) Last Admin: 03/22/17 06:45 Dose: 650 mg Acyclovir (Zovirax 5% Oint) 0 gm EXT Q3H [facility] Last Admin: 03/22/17 04:59 Dose: Not Given Albuterol (Ventolin Hfa 90 Mcg/Actuation (8 G)) 1 puff INH RQ6 PRN PRN Reason: Cough and congestion Stop: 04/04/17 10:05 Amlodipine Besylate (Norvasc) 10 mg PO DAILY [facility] Last Admin: 03/22/17 09:44 Dose: 10 mg Benzoin (Benzoin Compound Tincture) 2 ml TOP DAILY [facility] Last Admin: 03/22/17 09:46 Dose: 2 ml Betamethasone/Clotrimazole (Lotrisone) 1 gm TOP BID [facility] Last Admin: 03/22/17 09:47 Dose: 1 applic Carvedilol (Coreg) 12.5 mg PO BID [facility] Last Admin: 03/22/17 09:52 Dose: 12.5 mg Clopidogrel Bisulfate (Plavix) 75 mg PO DAILY [facility] Last Admin: 03/22/17 09:44 Dose: 75 mg Dextrose (Dextrose 50% Inj) 0 ml IV STAT PRN; Protocol PRN Reason: Hyglycemia Protocol Last Admin: 03/13/17 07:17 Dose: 25 ml Dextrose (Glutose 15) 0 gm PO ONCE PRN; Protocol PRN Reason: Hypoglycemia Protocol Diphenhydramine HCl (Benadryl) 25 mg IVP Q4 PRN PRN Reason: Itching / Pruritus Last Admin: 03/22/17 10:28 Dose: 25 mg Epoetin Alec (Procrit) 10,000 unit SC MWF [facility] Last Admin: 03/22/17 09:43 Dose: 10,000 unit Hydromorphone HCl (Dilaudid) 0.5 mg IVP Q5H PRN PRN Reason: Pain, severe (8-10) Last Admin: 03/22/17 11:57 Dose: 0.5 mg Meropenem 500 mg/ Sodium (Chloride) 100 mls @ 100 mls/hr IVPB Q24H [facility] Last Admin: 03/22/17 09:44 Dose: 100 mls/hr Insulin Glargine (Lantus) 10 unit SC HS [facility] Last Admin: 03/21/17 22:15 Dose: 10 units Insulin Human Regular (Novolin R) 0 unit SC ACHS [facility] PRN Reason: Protocol Last Admin: 03/22/17 07:51 Dose: Not Given Lactulose (Enulose) 20 gm PO DAILY PRN PRN Reason: Constipation Linezolid (Zyvox) 600 mg PO Q12 [facility] Last Admin: 03/22/17 09:44 Dose: 600 mg Losartan Potassium (Cozaar) 100 mg PO DAILY@1800 [facility] Last Admin: 03/21/17 18:27 Dose: 100 mg Morphine Sulfate (Morphine) 2 mg IVP Q3 PRN PRN Reason: Pain, moderate (4-7) Last Admin: 03/22/17 10:29 Dose: 2 mg Petrolatum (Desitin Original) 0 gm TOP BID [facility] Last Admin: 03/22/17 09:46 Dose: 1 applic Promethazine HCl (Phenergan Syrup) 12.5 mg PO Q6 PRN PRN Reason: Cough Stop: 04/04/17 10:03 Last Admin: 03/21/17 22:36 Dose: 12.5 mg Saccharomyces Boulardii (Florastor) 250 mg PO DAILY [facility] Last Admin: 03/22/17 09:44 Dose: 250 mg Sevelamer Carbonate (Renvela) 1.6 gm PO TIDCC [facility] Last Admin: 03/22/17 08:14 Dose: 1.6 gm Vitamin A (Vitamin A & D Oint Ud Foilpak) 1 ea TOP BID PRN PRN Reason: Dry skin Last Admin: 03/17/17 10:02 Dose: 1 ea - Labs Labs: 03/20/17 07:37 03/20/17 07:37 PT 11.7 SECONDS (9.7-12.2) 03/13/17 08:31 INR 1.0 03/13/17 08:31 APTT 41 SECONDS (21-34) H 03/13/17 08:31 - Constitutional Appears: No Acute Distress, Chronically Ill - Head Exam Head Exam: ATRAUMATIC, NORMAL INSPECTION - Eye Exam Eye Exam: EOMI, Normal appearance - Neck Exam Neck Exam: Normal Inspection. absent: Tenderness - Respiratory Exam Respiratory Exam: Clear to Ausculation Bilateral, NORMAL BREATHING PATTERN - Cardiovascular Exam Cardiovascular Exam: REGULAR RHYTHM, +S1 - GI/Abdominal Exam GI & Abdominal Exam: Soft. absent: Tenderness - Extremities Exam Extremities Exam: Tenderness - Neurological Exam Neurological Exam: Alert, CN II-XII Intact - Skin Skin Exam: Dry, Warm Assessment and Plan (1) Type 1 diabetes mellitus with diabetic nephropathy Status: Acute (2) Gangrene of right foot Status: Acute (3) End stage renal disease Status: Acute - Assessment and Plan (Free Text) Plan: Same PD Same BP meds Wound care, IV ABs Likely for BKA soon
[2017-03-22] MEDS: Promethazine 12.5 mg/10 ml Syrup PO PRN (22:42)
[2017-03-22] MEDS: (Lantus) Insulin Glargine, Recombinant SC SCH (22:42)
--- NOTE | 2017-03-22 23:44 | CP.PCM.PN ---
Subjective - Date & Time of Evaluation Date of Evaluation: 03/22/17 Time of Evaluation: 23:44 - Subjective Subjective: The wound VAC is still noted. Spoke to the patient regarding the further management. Likely patient may need a below-knee on the patient. Patient is currently was upset about that. But she will be agreeing most likely. We'll continue the current treatment. DVT and GI prophylaxis. Anemia noted. Gross monitor the patient Objective - Vital Signs/Intake and Output Vital Signs (last 24 hours): Temp Pulse Resp BP Pulse Ox 98.3 F 97 H 20 116/82 98 03/22/17 16:33 03/22/17 16:33 03/22/17 16:33 03/22/17 18:32 03/22/17 16:33 - Medications Medications: Current Medications Acetaminophen (Tylenol 325mg Tab) 650 mg PO Q6 PRN PRN Reason: Pain, Mild (1-3) Last Admin: 03/22/17 06:45 Dose: 650 mg Acyclovir (Zovirax 5% Oint) 0 gm EXT Q3H [facility] Last Admin: 03/22/17 22:10 Dose: 1 applic Albuterol (Ventolin Hfa 90 Mcg/Actuation (8 G)) 1 puff INH RQ6 PRN PRN Reason: Cough and congestion Stop: 04/04/17 10:05 Amlodipine Besylate (Norvasc) 10 mg PO DAILY [facility] Last Admin: 03/22/17 09:44 Dose: 10 mg Benzoin (Benzoin Compound Tincture) 2 ml TOP DAILY [facility] Last Admin: 03/22/17 09:46 Dose: 2 ml Betamethasone/Clotrimazole (Lotrisone) 1 gm TOP BID [facility] Last Admin: 03/22/17 18:00 Dose: 1 applic Carvedilol (Coreg) 12.5 mg PO BID [facility] Last Admin: 03/22/17 18:32 Dose: 12.5 mg Clopidogrel Bisulfate (Plavix) 75 mg PO DAILY [facility] Last Admin: 03/22/17 09:44 Dose: 75 mg Dextrose (Dextrose 50% Inj) 0 ml IV STAT PRN; Protocol PRN Reason: Hyglycemia Protocol Last Admin: 03/13/17 07:17 Dose: 25 ml Dextrose (Glutose 15) 0 gm PO ONCE PRN; Protocol PRN Reason: Hypoglycemia Protocol Diphenhydramine HCl (Benadryl) 25 mg IVP Q4 PRN PRN Reason: Itching / Pruritus Last Admin: 03/22/17 22:42 Dose: 25 mg Epoetin Alec (Procrit) 10,000 unit SC MWF [facility] Last Admin: 03/22/17 09:43 Dose: 10,000 unit Hydromorphone HCl (Dilaudid) 0.5 mg IVP Q5H PRN PRN Reason: Pain, severe (8-10) Last Admin: 03/22/17 18:32 Dose: 0.5 mg Meropenem 500 mg/ Sodium (Chloride) 100 mls @ 100 mls/hr IVPB Q24H [facility] Last Admin: 03/22/17 09:44 Dose: 100 mls/hr Insulin Glargine (Lantus) 10 unit SC HS [facility] Last Admin: 03/22/17 22:42 Dose: 10 units Insulin Human Regular (Novolin R) 0 unit SC ACHS [facility] PRN Reason: Protocol Last Admin: 03/22/17 22:09 Dose: Not Given Lactulose (Enulose) 20 gm PO DAILY PRN PRN Reason: Constipation Linezolid (Zyvox) 600 mg PO Q12 [facility] Last Admin: 03/22/17 22:43 Dose: 600 mg Losartan Potassium (Cozaar) 100 mg PO DAILY@1800 [facility] Last Admin: 03/22/17 18:32 Dose: 100 mg Morphine Sulfate (Morphine) 2 mg IVP Q3 PRN PRN Reason: Pain, moderate (4-7) Last Admin: 03/22/17 22:42 Dose: 2 mg Petrolatum (Desitin Original) 0 gm TOP BID [facility] Last Admin: 03/22/17 18:32 Dose: 1 applic Promethazine HCl (Phenergan Syrup) 12.5 mg PO Q6 PRN PRN Reason: Cough Stop: 04/04/17 10:03 Last Admin: 03/22/17 22:42 Dose: 12.5 mg Saccharomyces Boulardii (Florastor) 250 mg PO DAILY [facility] Last Admin: 03/22/17 09:44 Dose: 250 mg Sevelamer Carbonate (Renvela) 1.6 gm PO TIDCC [facility] Last Admin: 03/22/17 18:32 Dose: 1.6 gm Vitamin A (Vitamin A & D Oint Ud Foilpak) 1 ea TOP BID PRN PRN Reason: Dry skin Last Admin: 03/17/17 10:02 Dose: 1 ea - Labs Labs: 03/20/17 07:37 03/20/17 07:37 PT 11.7 SECONDS (9.7-12.2) 03/13/17 08:31 INR 1.0 03/13/17 08:31 APTT 41 SECONDS (21-34) H 03/13/17 08:31
[2017-03-23] MEDS: DiphenhydrAMINE 50 mg/ml Inj IVP PRN ×4 (07:14→22:10)
[2017-03-23] MEDS: (Novolin R) Insulin Human Regular 100 units/ml vial SC SCH ×3 (07:30→22:00)
[2017-03-23] MEDS: Acyclovir 5% Oint (15 gm) EXT SCH ×4 (08:15→23:55)
--- NOTE | 2017-03-23 09:46 | CP.PCM.PN ---
Subjective - Date & Time of Evaluation Date of Evaluation: 03/23/17 Time of Evaluation: 09:43 - Subjective Subjective: Remains afebrile, in NAD BP stable; no CPs, SOB, fevers, chills, nausea, vomiting, diarrhea wound VAC with some drainage discussed again about poor wound healing- pt appears acceptable for right BKA PD going well Objective - Vital Signs/Intake and Output Vital Signs (last 24 hours): Temp Pulse Resp BP Pulse Ox 98.3 F 91 H 20 115/72 95 03/23/17 08:00 03/23/17 08:00 03/23/17 08:00 03/23/17 08:00 03/23/17 08:00 - Medications Medications: Current Medications Acetaminophen (Tylenol 325mg Tab) 650 mg PO Q6 PRN PRN Reason: Pain, Mild (1-3) Last Admin: 03/22/17 06:45 Dose: 650 mg Acyclovir (Zovirax 5% Oint) 0 gm EXT Q3H [facility] Last Admin: 03/22/17 22:10 Dose: 1 applic Albuterol (Ventolin Hfa 90 Mcg/Actuation (8 G)) 1 puff INH RQ6 PRN PRN Reason: Cough and congestion Stop: 04/04/17 10:05 Amlodipine Besylate (Norvasc) 10 mg PO DAILY [facility] Last Admin: 03/22/17 09:44 Dose: 10 mg Benzoin (Benzoin Compound Tincture) 2 ml TOP DAILY [facility] Last Admin: 03/22/17 09:46 Dose: 2 ml Betamethasone/Clotrimazole (Lotrisone) 1 gm TOP BID [facility] Last Admin: 03/22/17 18:00 Dose: 1 applic Carvedilol (Coreg) 12.5 mg PO BID [facility] Last Admin: 03/22/17 18:32 Dose: 12.5 mg Clopidogrel Bisulfate (Plavix) 75 mg PO DAILY [facility] Last Admin: 03/22/17 09:44 Dose: 75 mg Dextrose (Dextrose 50% Inj) 0 ml IV STAT PRN; Protocol PRN Reason: Hyglycemia Protocol Last Admin: 03/13/17 07:17 Dose: 25 ml Dextrose (Glutose 15) 0 gm PO ONCE PRN; Protocol PRN Reason: Hypoglycemia Protocol Diphenhydramine HCl (Benadryl) 25 mg IVP Q4 PRN PRN Reason: Itching / Pruritus Last Admin: 03/23/17 07:14 Dose: 25 mg Epoetin Alec (Procrit) 10,000 unit SC MWF [facility] Last Admin: 03/22/17 09:43 Dose: 10,000 unit Hydromorphone HCl (Dilaudid) 0.5 mg IVP Q5H PRN PRN Reason: Pain, severe (8-10) Last Admin: 03/22/17 18:32 Dose: 0.5 mg Meropenem 500 mg/ Sodium (Chloride) 100 mls @ 100 mls/hr IVPB Q24H [facility] Last Admin: 03/22/17 09:44 Dose: 100 mls/hr Insulin Glargine (Lantus) 10 unit SC HS [facility] Last Admin: 03/22/17 22:42 Dose: 10 units Insulin Human Regular (Novolin R) 0 unit SC ACHS [facility] PRN Reason: Protocol Last Admin: 03/22/17 22:09 Dose: Not Given Lactulose (Enulose) 20 gm PO DAILY PRN PRN Reason: Constipation Linezolid (Zyvox) 600 mg PO Q12 [facility] Last Admin: 03/22/17 22:43 Dose: 600 mg Losartan Potassium (Cozaar) 100 mg PO DAILY@1800 [facility] Last Admin: 03/22/17 18:32 Dose: 100 mg Morphine Sulfate (Morphine) 2 mg IVP Q3 PRN PRN Reason: Pain, moderate (4-7) Last Admin: 03/23/17 07:15 Dose: 2 mg Petrolatum (Desitin Original) 0 gm TOP BID [facility] Last Admin: 03/22/17 18:32 Dose: 1 applic Promethazine HCl (Phenergan Syrup) 12.5 mg PO Q6 PRN PRN Reason: Cough Stop: 04/04/17 10:03 Last Admin: 03/22/17 22:42 Dose: 12.5 mg Saccharomyces Boulardii (Florastor) 250 mg PO DAILY [facility] Last Admin: 03/22/17 09:44 Dose: 250 mg Sevelamer Carbonate (Renvela) 1.6 gm PO TIDCC [facility] Last Admin: 03/22/17 18:32 Dose: 1.6 gm Vitamin A (Vitamin A & D Oint Ud Foilpak) 1 ea TOP BID PRN PRN Reason: Dry skin Last Admin: 10/15/17 10:02 Dose: 1 ea - Labs Labs: 03/20/17 07:37 03/20/17 07:37 PT 11.7 SECONDS (9.7-12.2) 03/13/17 08:31 INR 1.0 03/13/17 08:31 APTT 41 SECONDS (21-34) H 03/13/17 08:31 - Constitutional Appears: Non-toxic, No Acute Distress, Chronically Ill - Head Exam Head Exam: ATRAUMATIC, NORMAL INSPECTION - Eye Exam Eye Exam: EOMI, Normal appearance - Neck Exam Neck Exam: Normal Inspection. absent: Tenderness - Respiratory Exam Respiratory Exam: Clear to Ausculation Bilateral, NORMAL BREATHING PATTERN - Cardiovascular Exam Cardiovascular Exam: REGULAR RHYTHM, +S1 - GI/Abdominal Exam GI & Abdominal Exam: Soft. absent: Tenderness - Extremities Exam Extremities Exam: Normal Inspection. absent: Tenderness - Neurological Exam Neurological Exam: Awake, CN II-XII Intact - Skin Skin Exam: Dry, Warm Assessment and Plan (1) Type 1 diabetes mellitus with diabetic nephropathy Status: Acute (2) Gangrene of right foot Status: Acute (3) End stage renal disease Status: Acute - Assessment and Plan (Free Text) Plan: Same PD continue wound care/ IV ABs considering right BKA
[2017-03-23] MEDS: Saccharomyces Boulardi 250 mg Cap PO SCH (10:16)
[2017-03-23] MEDS: Meropenem 500 MG in Sodium Chloride 0.9% 100 ML IVPB SCH (10:16)
[2017-03-23] MEDS: Clotrimazole/Betamethasone Cream(15 gm) TOP SCH ×2 (10:17→18:00)
[2017-03-23] MEDS: Zinc Oxide Topical 30 gm Tube TOP SCH ×2 (10:18→18:00)
[2017-03-23] MEDS: Sevelamer Carb 0.8 gm/Packet PO SCH ×3 (10:18→17:05)
[2017-03-23] MEDS: Benzoin Compound Tincture (60 ml) TOP SCH (10:40)
--- NOTE | 2017-03-23 11:14 | CP.PCM.PN ---
Subjective - Date & Time of Evaluation Date of Evaluation: 03/23/17 Time of Evaluation: 12:55 - Subjective Subjective: Podiatry progress note- Dr. Ordonez 51 y/o female seen at bedside this afternoon for R foot Lisfranc's amputation and L foot heel ulcer. Pt is resting comfortably at time of visit, AAOx3 and NAD. Patient denies F/C/N/V/D/SOB/calf pain. Patient complains of mild pain to right foot amputation, especially any time she moves in bed. Pt denies any pain to the L heel. Pt states she has kept the dressing clean, dry and intact and has been wearing an offloading boot to the L foot at all times. Objective - Vital Signs/Intake and Output Vital Signs (last 24 hours): Temp Pulse Resp BP Pulse Ox 98.3 F 91 H 20 121/76 95 03/23/17 08:00 03/23/17 08:00 03/23/17 08:00 03/23/17 10:16 03/23/17 08:00 - Medications Medications: Current Medications Acetaminophen (Tylenol 325mg Tab) 650 mg PO Q6 PRN PRN Reason: Pain, Mild (1-3) Last Admin: 03/22/17 06:45 Dose: 650 mg Acyclovir (Zovirax 5% Oint) 0 gm EXT Q3H [facility] Last Admin: 03/23/17 08:15 Dose: Not Given Albuterol (Ventolin Hfa 90 Mcg/Actuation (8 G)) 1 puff INH RQ6 PRN PRN Reason: Cough and congestion Stop: 04/04/17 10:05 Amlodipine Besylate (Norvasc) 10 mg PO DAILY [facility] Last Admin: 03/23/17 10:16 Dose: 10 mg Benzoin (Benzoin Compound Tincture) 2 ml TOP DAILY [facility] Last Admin: 03/23/17 10:40 Dose: Not Given Betamethasone/Clotrimazole (Lotrisone) 1 gm TOP BID [facility] Last Admin: 03/23/17 10:17 Dose: 1 applic Carvedilol (Coreg) 12.5 mg PO BID [facility] Last Admin: 03/23/17 10:16 Dose: 12.5 mg Clopidogrel Bisulfate (Plavix) 75 mg PO DAILY [facility] Last Admin: 03/23/17 10:16 Dose: 75 mg Dextrose (Dextrose 50% Inj) 0 ml IV STAT PRN; Protocol PRN Reason: Hyglycemia Protocol Last Admin: 03/13/17 07:17 Dose: 25 ml Dextrose (Glutose 15) 0 gm PO ONCE PRN; Protocol PRN Reason: Hypoglycemia Protocol Diphenhydramine HCl (Benadryl) 25 mg IVP Q4 PRN PRN Reason: Itching / Pruritus Last Admin: 03/23/17 10:39 Dose: 25 mg Epoetin Alec (Procrit) 10,000 unit SC MWF [facility] Last Admin: 03/22/17 09:43 Dose: 10,000 unit Hydromorphone HCl (Dilaudid) 0.5 mg IVP Q5H PRN PRN Reason: Pain, severe (8-10) Last Admin: 03/22/17 18:32 Dose: 0.5 mg Meropenem 500 mg/ Sodium (Chloride) 100 mls @ 100 mls/hr IVPB Q24H [facility] Last Admin: 03/23/17 10:16 Dose: 100 mls/hr Insulin Glargine (Lantus) 10 unit SC HS [facility] Last Admin: 03/22/17 22:42 Dose: 10 units Insulin Human Regular (Novolin R) 0 unit SC ACHS [facility] PRN Reason: Protocol Last Admin: 03/23/17 07:30 Dose: Not Given Lactulose (Enulose) 20 gm PO DAILY PRN PRN Reason: Constipation Linezolid (Zyvox) 600 mg PO Q12 [facility] Last Admin: 03/23/17 10:16 Dose: 600 mg Losartan Potassium (Cozaar) 100 mg PO DAILY@1800 [facility] Last Admin: 03/22/17 18:32 Dose: 100 mg Morphine Sulfate (Morphine) 2 mg IVP Q3 PRN PRN Reason: Pain, moderate (4-7) Last Admin: 03/23/17 10:38 Dose: 2 mg Petrolatum (Desitin Original) 0 gm TOP BID [facility] Last Admin: 03/23/17 10:18 Dose: 1 applic Promethazine HCl (Phenergan Syrup) 12.5 mg PO Q6 PRN PRN Reason: Cough Stop: 04/04/17 10:03 Last Admin: 03/22/17 22:42 Dose: 12.5 mg Saccharomyces Boulardii (Florastor) 250 mg PO DAILY [facility] Last Admin: 03/23/17 10:16 Dose: 250 mg Sevelamer Carbonate (Renvela) 1.6 gm PO TIDCC [facility] Last Admin: 03/23/17 10:18 Dose: 1.6 gm Vitamin A (Vitamin A & D Oint Ud Foilpak) 1 ea TOP BID PRN PRN Reason: Dry skin Last Admin: 03/17/17 10:02 Dose: 1 ea - Labs Labs: 03/20/17 07:37 03/20/17 07:37 PT 11.7 SECONDS (9.7-12.2) 03/13/17 08:31 INR 1.0 03/13/17 08:31 APTT 41 SECONDS (21-34) H 03/13/17 08:31 - Constitutional Appears: Well, Non-toxic, No Acute Distress - Extremities Exam Additional comments: Lower extremity focused examination: Vasc: DP pulse faintly palpable, PT pulse non-palpable on R. DP/PT pulses 1/4 to L foot. Skin temp runs warm to warm (from proximal to distal) on R, warm to cool on L. CFT < 3 sec to amputation flap and to all 5 digits of L foot. No pedal edema noted at this time. Derm: Open surgical site wound measuring 6.7cm x 5 cm with medial and intermediate cuneiform bones exposed. No purulence, no malodor, no active drainage noted. Bones exposed. Limited wound site perfusion noted. Slight cyanotic discoloration noted to distal aspect of right foot amputation site. Stable 0.9cm x 0.9cm x 0.1cm eschar noted to L posteroplantar heel with no surrounding erythema, no malodor, no fluctuance, no drainage, no clinical suspicion of infection. Neuro: Protective sensation intact B/L Ortho: moderate tenderness elicited on palpation of Lisfranc level amputation stump. No tenderness elicited upon palpation of L heel exchar. - Neurological Exam Neurological Exam: Alert, Awake, Oriented x3 - Psychiatric Exam Psychiatric exam: Normal Affect, Normal Mood Assessment and Plan - Assessment and Plan (Free Text) Assessment: 51 y/o female patient 8 days s/p right foot wound debridement and 1 month s/p right foot Lisfranc amputation and left heel superficial eschar Plan: Patient seen and evaluated at bedside Discussed plan in detail with attending Dr. Ordonez Chart, labs and vitals reviewed = afebrile, last WBC 8.8 on 03/20 No dressing to LLE, pt to keep wearing offloading boot on L side Wound vac changed to RLE and dressed with kerlix bandage Continue with multipodus boots at all times while in bed bilaterally Continue IV abx- Linezolid and Meropenem Arterial duplex scan of RLE ordered Pt to be reevaluated by vascular surgery Pt appearing to be agreeable to BKA at this time, will await arterial duplex results Pt to continue strictly NWB to B/L lower extremity Podiatry will continue to follow patient while in house
[2017-03-23] MEDS: Promethazine 12.5 mg/10 ml Syrup PO PRN (17:05)
[2017-03-23] MEDS: (Lantus) Insulin Glargine, Recombinant SC SCH (22:10)
[2017-03-24] MEDS: Acyclovir 5% Oint (15 gm) EXT SCH ×7 (02:29→23:45)
[2017-03-24] MEDS: Promethazine 12.5 mg/10 ml Syrup PO PRN ×2 (04:05→10:31)
[2017-03-24] MEDS: DiphenhydrAMINE 50 mg/ml Inj IVP PRN ×3 (04:05→22:15)
[2017-03-24] MEDS: Sevelamer Carb 0.8 gm/Packet PO SCH ×3 (08:00→17:41)
[2017-03-24] MEDS: (Novolin R) Insulin Human Regular 100 units/ml vial SC SCH ×3 (08:01→17:01)
--- NOTE | 2017-03-24 09:33 | CP.PCM.PN ---
Subjective - Date & Time of Evaluation Date of Evaluation: 03/24/17 Time of Evaluation: 10:55 - Subjective Subjective: Podiatry progress note- Dr. Ordonez 51 y/o female seen at bedside this morning for R foot Lisfranc's amputation and L foot heel ulceration. Pt is resting comfortably at time of visit, AAOx3 and NAD. Patient denies F/C/N/V/D/SOB/calf pain. Patient states her right foot isn' t bothering her too much today. Pt denies any pain to the L heel. Pt states she has kept the dressing clean, dry and intact and has been wearing her offloading boots since yesterday's visit. Pt states she is feeling an overall sense of weakness and stomach pain at this time. Pt has no other pedal complaints at this time. Objective - Vital Signs/Intake and Output Vital Signs (last 24 hours): Temp Pulse Resp BP Pulse Ox 97.7 F 88 20 188/89 H 97 03/24/17 07:30 03/24/17 07:30 03/24/17 07:30 03/24/17 07:30 03/24/17 07:30 - Medications Medications: Current Medications Acetaminophen (Tylenol 325mg Tab) 650 mg PO Q6 PRN PRN Reason: Pain, Mild (1-3) Last Admin: 03/22/17 06:45 Dose: 650 mg Acyclovir (Zovirax 5% Oint) 0 gm EXT Q3H [facility] Last Admin: 03/24/17 07:39 Dose: Not Given Albuterol (Ventolin Hfa 90 Mcg/Actuation (8 G)) 1 puff INH RQ6 PRN PRN Reason: Cough and congestion Stop: 04/04/17 10:05 Amlodipine Besylate (Norvasc) 10 mg PO DAILY [facility] Last Admin: 03/23/17 10:16 Dose: 10 mg Benzoin (Benzoin Compound Tincture) 2 ml TOP DAILY [facility] Last Admin: 03/23/17 10:40 Dose: Not Given Betamethasone/Clotrimazole (Lotrisone) 1 gm TOP BID [facility] Last Admin: 03/23/17 10:17 Dose: 1 applic Carvedilol (Coreg) 12.5 mg PO BID [facility] Last Admin: 03/23/17 17:05 Dose: 12.5 mg Clopidogrel Bisulfate (Plavix) 75 mg PO DAILY [facility] Last Admin: 03/23/17 10:16 Dose: 75 mg Dextrose (Dextrose 50% Inj) 0 ml IV STAT PRN; Protocol PRN Reason: Hyglycemia Protocol Last Admin: 03/13/17 07:17 Dose: 25 ml Dextrose (Glutose 15) 0 gm PO ONCE PRN; Protocol PRN Reason: Hypoglycemia Protocol Diphenhydramine HCl (Benadryl) 25 mg IVP Q4 PRN PRN Reason: Itching / Pruritus Last Admin: 03/24/17 08:05 Dose: 25 mg Epoetin Alec (Procrit) 10,000 unit SC MWF [facility] Last Admin: 03/22/17 09:43 Dose: 10,000 unit Hydromorphone HCl (Dilaudid) 0.5 mg IVP Q5H PRN PRN Reason: Pain, severe (8-10) Last Admin: 03/22/17 18:32 Dose: 0.5 mg Meropenem 500 mg/ Sodium (Chloride) 100 mls @ 100 mls/hr IVPB Q24H [facility] Last Admin: 03/23/17 10:16 Dose: 100 mls/hr Insulin Glargine (Lantus) 10 unit SC HS [facility] Last Admin: 03/23/17 22:10 Dose: 10 units Insulin Human Regular (Novolin R) 0 unit SC ACHS [facility] PRN Reason: Protocol Last Admin: 03/24/17 08:01 Dose: Not Given Lactulose (Enulose) 20 gm PO DAILY PRN PRN Reason: Constipation Linezolid (Zyvox) 600 mg PO Q12 [facility] Last Admin: 03/23/17 22:09 Dose: 600 mg Losartan Potassium (Cozaar) 100 mg PO DAILY@1800 [facility] Last Admin: 03/23/17 17:05 Dose: 100 mg Morphine Sulfate (Morphine) 2 mg IVP Q3 PRN PRN Reason: Pain, moderate (4-7) Last Admin: 03/24/17 08:05 Dose: 2 mg Petrolatum (Desitin Original) 0 gm TOP BID [facility] Last Admin: 03/23/17 10:18 Dose: 1 applic Promethazine HCl (Phenergan Syrup) 12.5 mg PO Q6 PRN PRN Reason: Cough Stop: 04/04/17 10:03 Last Admin: 03/24/17 04:05 Dose: 12.5 mg Saccharomyces Boulardii (Florastor) 250 mg PO DAILY [facility] Last Admin: 03/23/17 10:16 Dose: 250 mg Sevelamer Carbonate (Renvela) 1.6 gm PO TIDCC [facility] Last Admin: 03/24/17 08:00 Dose: 1.6 gm Vitamin A (Vitamin A & D Oint Ud Foilpak) 1 ea TOP BID PRN PRN Reason: Dry skin Last Admin: 03/17/17 10:02 Dose: 1 ea - Labs Labs: 03/20/17 07:37 03/20/17 07:37 PT 11.7 SECONDS (9.7-12.2) 03/13/17 08:31 INR 1.0 03/13/17 08:31 APTT 41 SECONDS (21-34) H 03/13/17 08:31 - Constitutional Appears: Well, Non-toxic, No Acute Distress - Extremities Exam Additional comments: RLE: Wound VAC to right foot functioning normally at continuous setting with 100mmHg. Outer dressing intact. LLE examination: Vasc: DP and PT pulses faintly palpable 1/4. Temp gradient warm to cool. No pedal edema noted Derm: Stable 0.9cm x 0.9cm x 0.1cm eschar noted to posteroplantar heel with no surrounding erythema, no malodor, no fluctuance, no drainage, no clinical suspicion of infection. Neuro: Protective sensation intact Ortho: No tenderness elicited upon palpation of heel eschar. - Neurological Exam Neurological Exam: Alert, Awake, Oriented x3 - Psychiatric Exam Psychiatric exam: Normal Affect, Normal Mood Assessment and Plan - Assessment and Plan (Free Text) Assessment: 51 y/o female patient 9 days s/p right foot wound debridement and 1 month s/p right foot Lisfranc amputation and left heel superficial eschar Plan: Patient seen and evaluated at bedside Discussed plan in detail with attending Dr. Ordonez Chart, labs and vitals reviewed = afebrile, last WBC 8.8 on 03/20 No dressing to LLE, pt to keep wearing offloading boot on L side Wound vac remains intact with <50mL drainage collection noted to canister Continue with multipodus boots at all times while in bed bilaterally Continue IV abx- Linezolid and Meropenem Arterial duplex scan of RLE ordered, results pending Pt to be reevaluated by vascular surgery Dr. Clark, recs appreciated Pt appearing to be agreeable to BKA at this time Pt to continue strictly NWB to B/L lower extremity Podiatry will continue to follow patient while in house
[2017-03-24] MEDS: Benzoin Compound Tincture (60 ml) TOP SCH (10:30)
[2017-03-24] MEDS: Saccharomyces Boulardi 250 mg Cap PO SCH (10:32)
[2017-03-24] MEDS: Meropenem 500 MG in Sodium Chloride 0.9% 100 ML IVPB SCH (10:33)
[2017-03-24] MEDS: Clotrimazole/Betamethasone Cream(15 gm) TOP SCH (10:44)
[2017-03-24] MEDS: Zinc Oxide Topical 30 gm Tube TOP SCH (10:44)
--- NOTE | 2017-03-24 16:17 | CP.PCM.PN ---
Subjective - Date & Time of Evaluation Date of Evaluation: 03/24/17 Time of Evaluation: 16:17 - Subjective Subjective: duplex suggests stents are open patient might still require bka if foot is not improving Objective - Vital Signs/Intake and Output Vital Signs (last 24 hours): Temp Pulse Resp BP Pulse Ox 97.7 F 88 20 158/89 H 97 03/24/17 07:30 03/24/17 07:30 03/24/17 07:30 03/24/17 10:32 03/24/17 07:30 Intake and Output: 03/24/17 03/24/17 06:59 18:59 Intake Total 220 Balance 220 - Medications Medications: Current Medications Acetaminophen (Tylenol 325mg Tab) 650 mg PO Q6 PRN PRN Reason: Pain, Mild (1-3) Last Admin: 03/22/17 06:45 Dose: 650 mg Acyclovir (Zovirax 5% Oint) 0 gm EXT Q3H [facility] Last Admin: 03/24/17 14:09 Dose: Not Given Albuterol (Ventolin Hfa 90 Mcg/Actuation (8 G)) 1 puff INH RQ6 PRN PRN Reason: Cough and congestion Stop: 04/04/17 10:05 Amlodipine Besylate (Norvasc) 10 mg PO DAILY [facility] Last Admin: 03/24/17 10:32 Dose: 10 mg Benzoin (Benzoin Compound Tincture) 2 ml TOP DAILY [facility] Last Admin: 03/24/17 10:30 Dose: Not Given Betamethasone/Clotrimazole (Lotrisone) 1 gm TOP BID [facility] Last Admin: 03/24/17 10:44 Dose: Not Given Carvedilol (Coreg) 12.5 mg PO BID [facility] Last Admin: 03/24/17 10:32 Dose: 12.5 mg Clopidogrel Bisulfate (Plavix) 75 mg PO DAILY [facility] Last Admin: 03/24/17 10:32 Dose: 75 mg Dextrose (Dextrose 50% Inj) 0 ml IV STAT PRN; Protocol PRN Reason: Hyglycemia Protocol Last Admin: 03/13/17 07:17 Dose: 25 ml Dextrose (Glutose 15) 0 gm PO ONCE PRN; Protocol PRN Reason: Hypoglycemia Protocol Diphenhydramine HCl (Benadryl) 25 mg IVP Q4 PRN PRN Reason: Itching / Pruritus Last Admin: 03/24/17 08:05 Dose: 25 mg Epoetin Alec (Procrit) 10,000 unit SC MWF [facility] Last Admin: 03/22/17 09:43 Dose: 10,000 unit Hydromorphone HCl (Dilaudid) 0.5 mg IVP Q5H PRN PRN Reason: Pain, severe (8-10) Last Admin: 03/22/17 18:32 Dose: 0.5 mg Meropenem 500 mg/ Sodium (Chloride) 100 mls @ 100 mls/hr IVPB Q24H [facility] Last Admin: 03/24/17 10:33 Dose: 100 mls/hr Insulin Glargine (Lantus) 10 unit SC HS [facility] Last Admin: 03/23/17 22:10 Dose: 10 units Insulin Human Regular (Novolin R) 0 unit SC ACHS [facility] PRN Reason: Protocol Last Admin: 03/24/17 11:48 Dose: Not Given Lactulose (Enulose) 20 gm PO DAILY PRN PRN Reason: Constipation Linezolid (Zyvox) 600 mg PO Q12 [facility] Last Admin: 03/24/17 10:32 Dose: 600 mg Losartan Potassium (Cozaar) 100 mg PO DAILY@1800 [facility] Last Admin: 03/23/17 17:05 Dose: 100 mg Morphine Sulfate (Morphine) 2 mg IVP Q3 PRN PRN Reason: Pain, moderate (4-7) Last Admin: 03/24/17 08:05 Dose: 2 mg Petrolatum (Desitin Original) 0 gm TOP BID [facility] Last Admin: 03/24/17 10:44 Dose: Not Given Promethazine HCl (Phenergan Syrup) 12.5 mg PO Q6 PRN PRN Reason: Cough Stop: 04/04/17 10:03 Last Admin: 03/24/17 10:31 Dose: 12.5 mg Saccharomyces Boulardii (Florastor) 250 mg PO DAILY [facility] Last Admin: 03/24/17 10:32 Dose: 250 mg Sevelamer Carbonate (Renvela) 1.6 gm PO TIDCC [facility] Last Admin: 03/24/17 12:12 Dose: Not Given Vitamin A (Vitamin A & D Oint Ud Foilpak) 1 ea TOP BID PRN PRN Reason: Dry skin Last Admin: 03/17/17 10:02 Dose: 1 ea - Labs Labs: 03/20/17 07:37 03/20/17 07:37 PT 11.7 SECONDS (9.7-12.2) 03/13/17 08:31 INR 1.0 03/13/17 08:31 APTT 41 SECONDS (21-34) H 03/13/17 08:31
[2017-03-24] MEDS: (Lantus) Insulin Glargine, Recombinant SC SCH (22:12)
[2017-03-25] MEDS: DiphenhydrAMINE 50 mg/ml Inj IVP PRN ×5 (02:21→20:08)
[2017-03-25] MEDS: Acyclovir 5% Oint (15 gm) EXT SCH ×7 (02:43→21:15)
[2017-03-25] MEDS: (Novolin R) Insulin Human Regular 100 units/ml vial SC SCH ×3 (07:30→17:30)
[2017-03-25] MEDS: Sevelamer Carb 0.8 gm/Packet PO SCH ×3 (08:00→17:57)
[2017-03-25] MEDS: Meropenem 500 MG in Sodium Chloride 0.9% 100 ML IVPB SCH (10:03)
[2017-03-25] MEDS: Saccharomyces Boulardi 250 mg Cap PO SCH (10:04)
[2017-03-25] MEDS: Clotrimazole/Betamethasone Cream(15 gm) TOP SCH (10:07)
[2017-03-25] MEDS: Zinc Oxide Topical 30 gm Tube TOP SCH (10:08)
[2017-03-25] MEDS: Benzoin Compound Tincture (60 ml) TOP SCH (10:08)
--- NOTE | 2017-03-25 11:46 | CP.PCM.PN ---
Subjective - Date & Time of Evaluation Date of Evaluation: 03/25/17 Time of Evaluation: 10:35 - Subjective Subjective: Podiatry progress note- Dr. Ordonez 51 year old female patient seen at bedside 10 days s/p right foot wound debridement of non-healing amputation site. Patient resting comfortably at time of visit, AAOx3 and NAD. Patient denies N/V/F/D/C/SOB/calf pain. Patient complains of mild pain to right foot amputation at resting. Patient reminded again of possible surgical options of right BKA. Objective - Vital Signs/Intake and Output Vital Signs (last 24 hours): Temp Pulse Resp BP Pulse Ox 98.3 F 99 H 20 144/81 98 03/25/17 08:17 03/25/17 10:02 03/25/17 08:17 03/25/17 10:17 03/25/17 08:17 - Medications Medications: Current Medications Acetaminophen (Tylenol 325mg Tab) 650 mg PO Q6 PRN PRN Reason: Pain, Mild (1-3) Last Admin: 03/24/17 17:41 Dose: 650 mg Acyclovir (Zovirax 5% Oint) 0 gm EXT Q3H [facility] Last Admin: 03/25/17 08:15 Dose: 1 applic Albuterol (Ventolin Hfa 90 Mcg/Actuation (8 G)) 1 puff INH RQ6 PRN PRN Reason: Cough and congestion Stop: 04/04/17 10:05 Amlodipine Besylate (Norvasc) 10 mg PO DAILY [facility] Last Admin: 03/25/17 10:04 Dose: 10 mg Benzoin (Benzoin Compound Tincture) 2 ml TOP DAILY [facility] Last Admin: 03/25/17 10:08 Dose: Not Given Betamethasone/Clotrimazole (Lotrisone) 1 gm TOP BID [facility] Last Admin: 03/25/17 10:07 Dose: 1 applic Carvedilol (Coreg) 12.5 mg PO BID [facility] Last Admin: 03/25/17 10:17 Dose: 12.5 mg Clopidogrel Bisulfate (Plavix) 75 mg PO DAILY [facility] Last Admin: 03/25/17 10:04 Dose: 75 mg Dextrose (Dextrose 50% Inj) 0 ml IV STAT PRN; Protocol PRN Reason: Hyglycemia Protocol Last Admin: 03/13/17 07:17 Dose: 25 ml Dextrose (Glutose 15) 0 gm PO ONCE PRN; Protocol PRN Reason: Hypoglycemia Protocol Diphenhydramine HCl (Benadryl) 25 mg IVP Q4 PRN PRN Reason: Itching / Pruritus Last Admin: 03/25/17 11:38 Dose: 25 mg Docusate Sodium (Colace) 100 mg PO Q8 PRN PRN Reason: Constipation Epoetin Alec (Procrit) 10,000 unit SC MWF [facility] Last Admin: 03/22/17 09:43 Dose: 10,000 unit Hydromorphone HCl (Dilaudid) 0.5 mg IVP Q5H PRN PRN Reason: Pain, severe (8-10) Last Admin: 03/22/17 18:32 Dose: 0.5 mg Meropenem 500 mg/ Sodium (Chloride) 100 mls @ 100 mls/hr IVPB Q24H [facility] Last Admin: 03/25/17 10:03 Dose: 100 mls/hr Insulin Glargine (Lantus) 10 unit SC HS [facility] Last Admin: 03/24/17 22:12 Dose: 10 units Insulin Human Regular (Novolin R) 0 unit SC [facility] PRN Reason: Protocol Last Admin: 03/25/17 07:30 Dose: Not Given Lactulose (Enulose) 20 gm PO DAILY PRN PRN Reason: Constipation Linezolid (Zyvox) 600 mg PO Q12 [facility] Last Admin: 03/25/17 10:04 Dose: 600 mg Losartan Potassium (Cozaar) 100 mg PO DAILY@1800 [facility] Last Admin: 03/24/17 17:41 Dose: 100 mg Morphine Sulfate (Morphine) 2 mg IVP Q3 PRN PRN Reason: Pain, moderate (4-7) Last Admin: 03/25/17 11:38 Dose: 2 mg Petrolatum (Desitin Original) 0 gm TOP BID [facility] Last Admin: 03/25/17 10:08 Dose: 1 applic Promethazine HCl (Phenergan Syrup) 12.5 mg PO Q6 PRN PRN Reason: Cough Stop: 04/04/17 10:03 Last Admin: 03/24/17 10:31 Dose: 12.5 mg Saccharomyces Boulardii (Florastor) 250 mg PO DAILY [facility] Last Admin: 03/25/17 10:04 Dose: 250 mg Sevelamer Carbonate (Renvela) 1.6 gm PO TIDCC [facility] Last Admin: 03/25/17 08:00 Dose: Not Given Vitamin A (Vitamin A & D Oint Ud Foilpak) 1 ea TOP BID PRN PRN Reason: Dry skin Last Admin: 03/17/17 10:02 Dose: 1 ea - Labs Labs: 03/20/17 07:37 03/20/17 07:37 PT 11.7 SECONDS (9.7-12.2) 03/13/17 08:31 INR 1.0 03/13/17 08:31 APTT 41 SECONDS (21-34) H 03/13/17 08:31 - Constitutional Appears: Well, Non-toxic, No Acute Distress - Head Exam Head Exam: ATRAUMATIC - Extremities Exam Additional comments: Wound VAC to right foot functioning at 100mmHg (decreased from 125mmHg) dressing intact - Neurological Exam Neurological Exam: Alert, Awake, Oriented x3 - Skin Skin Exam: Normal Color, Warm Assessment and Plan - Assessment and Plan (Free Text) Assessment: 51 y/o female patient 1) 10 days s/p right foot wound debridement. 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 Plan: Patient seen and evaluated at bedside Discussed in detail with attending, Dr. Ordonez Labs and vitals reviewed = afebrile Left foot remains open to air per PMD recommendation Continue with multipodus boots at all times while in bed bilaterally Strict NWB bilateral lower extremity Discussed in detail with Dr. Clark; DYAN to be planned in future Podiatry will continue to follow patient while in house
--- NOTE | 2017-03-25 12:11 | RAD ---
HISTORY: pna COMPARISON: 03/04/2017 FINDINGS: LUNGS: Patchy opacity at left base, likely lower lobe. Followup to rule out pneumonia. No abnormal opacity elsewhere. PLEURA: No significant pleural effusion identified, no pneumothorax apparent. CARDIOVASCULAR: Normal heart size. Right PICC catheter terminates in superior vena cava region. OSSEOUS STRUCTURES: Coarse calcification adjacent to greater tuberosity of right humerus consistent with calcific tendinitis. VISUALIZED UPPER ABDOMEN: There is free air beneath the diaphragm bilaterally. OTHER FINDINGS: None. IMPRESSION: Suspect early left lower lobe infiltrate. Followup advised. Free air beneath the diaphragm. In the absence of any history of recent abdominal surgery, this is suspicious for perforated hollow viscus. These findings were discussed by telephone with Dr. Lord at 12:10 p.m. on 03/25/2017.
--- NOTE | 2017-03-25 12:16 | CP.PCM.PN ---
Subjective - Date & Time of Evaluation Date of Evaluation: 03/25/17 Time of Evaluation: 12:13 - Subjective Subjective: Patient about same PD going well- running out of home supplies Deciding on BKA BP well controlled c/o constipation No diarrhea, SOB CPs, nausea, vomiting, fevers Objective - Vital Signs/Intake and Output Vital Signs (last 24 hours): Temp Pulse Resp BP Pulse Ox 98.3 F 99 H 20 144/81 98 03/25/17 08:17 03/25/17 10:02 03/25/17 08:17 03/25/17 10:17 03/25/17 08:17 - Medications Medications: Current Medications Acetaminophen (Tylenol 325mg Tab) 650 mg PO Q6 PRN PRN Reason: Pain, Mild (1-3) Last Admin: 03/24/17 17:41 Dose: 650 mg Acyclovir (Zovirax 5% Oint) 0 gm EXT Q3H [facility] Last Admin: 03/25/17 08:15 Dose: 1 applic Albuterol (Ventolin Hfa 90 Mcg/Actuation (8 G)) 1 puff INH RQ6 PRN PRN Reason: Cough and congestion Stop: 04/04/17 10:05 Amlodipine Besylate (Norvasc) 10 mg PO DAILY [facility] Last Admin: 03/25/17 10:04 Dose: 10 mg Benzoin (Benzoin Compound Tincture) 2 ml TOP DAILY [facility] Last Admin: 03/25/17 10:08 Dose: Not Given Betamethasone/Clotrimazole (Lotrisone) 1 gm TOP BID [facility] Last Admin: 03/25/17 10:07 Dose: 1 applic Carvedilol (Coreg) 12.5 mg PO BID [facility] Last Admin: 03/25/17 10:17 Dose: 12.5 mg Clopidogrel Bisulfate (Plavix) 75 mg PO DAILY [facility] Last Admin: 03/25/17 10:04 Dose: 75 mg Dextrose (Dextrose 50% Inj) 0 ml IV STAT PRN; Protocol PRN Reason: Hyglycemia Protocol Last Admin: 03/13/17 07:17 Dose: 25 ml Dextrose (Glutose 15) 0 gm PO ONCE PRN; Protocol PRN Reason: Hypoglycemia Protocol Diphenhydramine HCl (Benadryl) 25 mg IVP Q4 PRN PRN Reason: Itching / Pruritus Last Admin: 03/25/17 11:38 Dose: 25 mg Docusate Sodium (Colace) 100 mg PO Q8 PRN PRN Reason: Constipation Epoetin Alec (Procrit) 10,000 unit SC MWF [facility] Last Admin: 03/22/17 09:43 Dose: 10,000 unit Hydromorphone HCl (Dilaudid) 0.5 mg IVP Q5H PRN PRN Reason: Pain, severe (8-10) Last Admin: 03/22/17 18:32 Dose: 0.5 mg Meropenem 500 mg/ Sodium (Chloride) 100 mls @ 100 mls/hr IVPB Q24H [facility] Last Admin: 03/25/17 10:03 Dose: 100 mls/hr Insulin Glargine (Lantus) 10 unit SC HS [facility] Last Admin: 03/24/17 22:12 Dose: 10 units Insulin Human Regular (Novolin R) 0 unit SC ACHS [facility] PRN Reason: Protocol Last Admin: 03/25/17 07:30 Dose: Not Given Lactulose (Enulose) 20 gm PO DAILY PRN PRN Reason: Constipation Linezolid (Zyvox) 600 mg PO Q12 [facility] Last Admin: 03/25/17 10:04 Dose: 600 mg Losartan Potassium (Cozaar) 100 mg PO DAILY@1800 [facility] Last Admin: 03/24/17 17:41 Dose: 100 mg Morphine Sulfate (Morphine) 2 mg IVP Q3 PRN PRN Reason: Pain, moderate (4-7) Last Admin: 03/25/17 11:38 Dose: 2 mg Petrolatum (Desitin Original) 0 gm TOP BID [facility] Last Admin: 03/25/17 10:08 Dose: 1 applic Promethazine HCl (Phenergan Syrup) 12.5 mg PO Q6 PRN PRN Reason: Cough Stop: 04/04/17 10:03 Last Admin: 03/24/17 10:31 Dose: 12.5 mg Saccharomyces Boulardii (Florastor) 250 mg PO DAILY [facility] Last Admin: 03/25/17 10:04 Dose: 250 mg Sevelamer Carbonate (Renvela) 1.6 gm PO TIDCC [facility] Last Admin: 03/25/17 08:00 Dose: Not Given Vitamin A (Vitamin A & D Oint Ud Foilpak) 1 ea TOP BID PRN PRN Reason: Dry skin Last Admin: 03/17/17 10:02 Dose: 1 ea - Labs Labs: 03/20/17 07:37 03/20/17 07:37 PT 11.7 SECONDS (9.7-12.2) 03/13/17 08:31 INR 1.0 03/13/17 08:31 APTT 41 SECONDS (21-34) H 03/13/17 08:31 - Constitutional Appears: No Acute Distress, Chronically Ill - Head Exam Head Exam: ATRAUMATIC, NORMAL INSPECTION - Eye Exam Eye Exam: EOMI, Normal appearance - Neck Exam Neck Exam: Normal Inspection. absent: Tenderness - Respiratory Exam Respiratory Exam: Clear to Ausculation Bilateral, NORMAL BREATHING PATTERN - Cardiovascular Exam Cardiovascular Exam: REGULAR RHYTHM, +S1 - GI/Abdominal Exam GI & Abdominal Exam: Soft. 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
[2017-03-25] MEDS ORDERED: Influenza Vaccine 60 mcg/0.5 mL SYR (4YR UP) IM ONE (15:09)
[2017-03-25] MEDS ORDERED: Tuberculin 5 Units/0.1 ml Inj ID ONE (16:30)
[2017-03-25] MEDS: EPOETIN ALFA 10,000 UNIT/ML ML SC SCH (17:52)
[2017-03-25] MEDS: (Lantus) Insulin Glargine, Recombinant SC SCH (21:33)
--- NOTE | 2017-03-25 22:31 | CP.PCM.PN ---
Subjective - Date & Time of Evaluation Date of Evaluation: 03/25/17 Time of Evaluation: 22:31 - Subjective Subjective: Since last night the patient was complaining of some upper abdominal pain. 2 episodes of vomiting noted this morning. Currently patient is eating. She is comfortably eating, but nonspecific discomfort in the abdominal area noted. Did not have a BM. Vital signs otherwise stable Glucose is stable. I spoke to the patient about the surgical intervention. Patient is agreeing to have the below-knee amputation of the right leg. I also spoke to the infectious disease. Also spoke to the surgeon. We'll follow-up the patient Objective - Vital Signs/Intake and Output Vital Signs (last 24 hours): Temp Pulse Resp BP Pulse Ox 98.6 F 101 H 20 127/69 96 03/25/17 17:24 03/25/17 17:51 03/25/17 17:24 03/25/17 17:52 03/25/17 17:24 - Medications Medications: Current Medications Acetaminophen (Tylenol 325mg Tab) 650 mg PO Q6 PRN PRN Reason: Pain, Mild (1-3) Last Admin: 03/24/17 17:41 Dose: 650 mg Acyclovir (Zovirax 5% Oint) 0 gm EXT Q3H [facility] Last Admin: 03/25/17 21:15 Dose: Not Given Albuterol (Ventolin Hfa 90 Mcg/Actuation (8 G)) 1 puff INH RQ6 PRN PRN Reason: Cough and congestion Stop: 04/04/17 10:05 Amlodipine Besylate (Norvasc) 10 mg PO DAILY [facility] Last Admin: 03/25/17 10:04 Dose: 10 mg Benzoin (Benzoin Compound Tincture) 2 ml TOP DAILY [facility] Last Admin: 03/25/17 10:08 Dose: Not Given Betamethasone/Clotrimazole (Lotrisone) 1 gm TOP BID [facility] Last Admin: 03/25/17 10:07 Dose: 1 applic Carvedilol (Coreg) 12.5 mg PO BID [facility] Last Admin: 03/25/17 17:52 Dose: 12.5 mg Clopidogrel Bisulfate (Plavix) 75 mg PO DAILY [facility] Last Admin: 03/25/17 10:04 Dose: 75 mg Dextrose (Dextrose 50% Inj) 0 ml IV STAT PRN; Protocol PRN Reason: Hyglycemia Protocol Last Admin: 03/13/17 07:17 Dose: 25 ml Dextrose (Glutose 15) 0 gm PO ONCE PRN; Protocol PRN Reason: Hypoglycemia Protocol Diphenhydramine HCl (Benadryl) 25 mg IVP Q4 PRN PRN Reason: Itching / Pruritus Last Admin: 03/25/17 20:08 Dose: 25 mg Docusate Sodium (Colace) 100 mg PO Q8 PRN PRN Reason: Constipation Epoetin Alec (Procrit) 10,000 unit SC MWF [facility] Last Admin: 03/25/17 17:52 Dose: 10,000 unit Hydromorphone HCl (Dilaudid) 0.5 mg IVP Q5H PRN PRN Reason: Pain, severe (8-10) Last Admin: 03/22/17 18:32 Dose: 0.5 mg Meropenem 500 mg/ Sodium (Chloride) 100 mls @ 100 mls/hr IVPB Q24H [facility] Last Admin: 03/25/17 10:03 Dose: 100 mls/hr Insulin Glargine (Lantus) 10 unit SC HS [facility] Last Admin: 03/25/17 21:33 Dose: 10 units Insulin Human Regular (Novolin R) 0 unit SC ACHS [facility] PRN Reason: Protocol Last Admin: 03/25/17 17:30 Dose: Not Given Lactulose (Enulose) 20 gm PO DAILY PRN PRN Reason: Constipation Linezolid (Zyvox) 600 mg PO Q12 [facility] Last Admin: 03/25/17 21:33 Dose: 600 mg Losartan Potassium (Cozaar) 100 mg PO DAILY@1800 [facility] Last Admin: 03/25/17 17:53 Dose: 100 mg Morphine Sulfate (Morphine) 2 mg IVP Q3 PRN PRN Reason: Pain, moderate (4-7) Last Admin: 03/25/17 20:07 Dose: 2 mg Petrolatum (Desitin Original) 0 gm TOP BID [facility] Last Admin: 03/25/17 10:08 Dose: 1 applic Promethazine HCl (Phenergan Syrup) 12.5 mg PO Q6 PRN PRN Reason: Cough Stop: 04/04/17 10:03 Last Admin: 03/24/17 10:31 Dose: 12.5 mg Saccharomyces Boulardii (Florastor) 250 mg PO DAILY [facility] Last Admin: 03/25/17 10:04 Dose: 250 mg Sevelamer Carbonate (Renvela) 1.6 gm PO TIDCC [facility] Last Admin: 03/25/17 17:57 Dose: Not Given Vitamin A (Vitamin A & D Oint Ud Foilpak) 1 ea TOP BID PRN PRN Reason: Dry skin Last Admin: 03/17/17 10:02 Dose: 1 ea - Labs Labs: 03/20/17 07:37 03/20/17 07:37 PT 11.7 SECONDS (9.7-12.2) 03/13/17 08:31 INR 1.0 03/13/17 08:31 APTT 41 SECONDS (21-34) H 03/13/17 08:31
[2017-03-26] MEDS: Acyclovir 5% Oint (15 gm) EXT SCH ×8 (00:07→20:42)
[2017-03-26] MEDS: DiphenhydrAMINE 50 mg/ml Inj IVP PRN ×2 (00:38→07:07)
[2017-03-26] MEDS: Promethazine 12.5 mg/10 ml Syrup PO PRN (00:42)
[2017-03-26] MEDS: (Novolin R) Insulin Human Regular 100 units/ml vial SC SCH ×4 (07:47→22:29)
[2017-03-26] MEDS: Sevelamer Carb 0.8 gm/Packet PO SCH ×3 (08:10→18:01)
[2017-03-26 08:13] LABS: MEAN PLATELET VOLUME 8.1 fL (7.2-11.7)
[2017-03-26 08:27] LABS: BILIRUBIN,TOTAL 0.4 mg/dL (0.2-1.3); HEMATOCRIT 21.5 % (34.0-47.0); MEAN CELL VOLUME 93.7 fL (81.0-99.0); MEAN CORPUSCULAR HEMOGLOBIN 30.4 pg (27.0-31.0); MEAN CORPUSCULAR HGB CONC 32.5 g/dL (33.0-37.0); RED CELL DISTRIBUTION WIDTH 16.2 % (11.5-14.5)
[2017-03-26 08:28] LABS: ALB/GLOB RATIO 0.7 (1.0-2.1); CALCIUM 9.1 mg/dl (8.6-10.4); PHOSPHOROUS 4.1 mg/dL (2.5-4.5); TOTAL PROTEIN 6.9 g/dL (6.3-8.3); WHITE BLOOD COUNT 15.3 K/uL (4.8-10.8)
--- NOTE | 2017-03-26 09:34 | CP.PCM.PN ---
Subjective - Date & Time of Evaluation Date of Evaluation: 03/26/17 Time of Evaluation: 08:50 - Subjective Subjective: Podiatry progress note- Dr. Ordonez 51 year old female patient seen at bedside 11 days s/p right foot wound debridement of non-healing amputation site. AAOx3 and NAD. Patient admits improvement in pain to right foot surgical site. Patient denies N/V/F/D/C/SOB/ calf pain. Patient encouraged. Objective - Vital Signs/Intake and Output Vital Signs (last 24 hours): Temp Pulse Resp BP Pulse Ox 97.9 F 98 H 20 141/81 93 L 03/26/17 08:26 03/26/17 08:26 03/26/17 08:26 03/26/17 08:26 03/26/17 08:26 - Medications Medications: Current Medications Acetaminophen (Tylenol 325mg Tab) 650 mg PO Q6 PRN PRN Reason: Pain, Mild (1-3) Last Admin: 03/24/17 17:41 Dose: 650 mg Acyclovir (Zovirax 5% Oint) 0 gm EXT Q3H [facility] Last Admin: 03/26/17 09:10 Dose: Not Given Albuterol (Ventolin Hfa 90 Mcg/Actuation (8 G)) 1 puff INH RQ6 PRN PRN Reason: Cough and congestion Stop: 04/04/17 10:05 Amlodipine Besylate (Norvasc) 10 mg PO DAILY [facility] Last Admin: 03/25/17 10:04 Dose: 10 mg Benzoin (Benzoin Compound Tincture) 2 ml TOP DAILY [facility] Last Admin: 03/25/17 10:08 Dose: Not Given Betamethasone/Clotrimazole (Lotrisone) 1 gm TOP BID [facility] Last Admin: 03/25/17 10:07 Dose: 1 applic Carvedilol (Coreg) 12.5 mg PO BID [facility] Last Admin: 03/25/17 17:52 Dose: 12.5 mg Clopidogrel Bisulfate (Plavix) 75 mg PO DAILY [facility] Last Admin: 03/25/17 10:04 Dose: 75 mg Dextrose (Dextrose 50% Inj) 0 ml IV STAT PRN; Protocol PRN Reason: Hyglycemia Protocol Last Admin: 03/13/17 07:17 Dose: 25 ml Dextrose (Glutose 15) 0 gm PO ONCE PRN; Protocol PRN Reason: Hypoglycemia Protocol Last Admin: 03/26/17 07:17 Dose: 15 gm Diphenhydramine HCl (Benadryl) 25 mg IVP Q4 PRN PRN Reason: Itching / Pruritus Last Admin: 03/26/17 07:07 Dose: 25 mg Docusate Sodium (Colace) 100 mg PO Q8 PRN PRN Reason: Constipation Epoetin Alec (Procrit) 10,000 unit SC MWF [facility] Last Admin: 03/25/17 17:52 Dose: 10,000 unit Hydromorphone HCl (Dilaudid) 0.5 mg IVP Q5H PRN PRN Reason: Pain, severe (8-10) Last Admin: 03/22/17 18:32 Dose: 0.5 mg Meropenem 500 mg/ Sodium (Chloride) 100 mls @ 100 mls/hr IVPB Q24H [facility] Last Admin: 03/25/17 10:03 Dose: 100 mls/hr Dextrose/Sodium Chloride (Dextrose 5%/0.45% Ns 1000 Ml) 1,000 mls @ 70 mls/hr IV .[id number] [facility] Insulin Glargine (Lantus) 10 unit SC HS [facility] Last Admin: 03/25/17 21:33 Dose: 10 units Insulin Human Regular (Novolin R) 0 unit SC ACHS [facility] PRN Reason: Protocol Last Admin: 03/26/17 07:47 Dose: Not Given Lactulose (Enulose) 20 gm PO DAILY PRN PRN Reason: Constipation Last Admin: 03/26/17 07:14 Dose: 20 gm Linezolid (Zyvox) 600 mg PO Q12 [facility] Last Admin: 03/25/17 21:33 Dose: 600 mg Losartan Potassium (Cozaar) 100 mg PO DAILY@1800 [facility] Last Admin: 03/25/17 17:53 Dose: 100 mg Morphine Sulfate (Morphine) 2 mg IVP Q3 PRN PRN Reason: Pain, moderate (4-7) Last Admin: 03/26/17 07:06 Dose: 2 mg Petrolatum (Desitin Original) 0 gm TOP BID [facility] Last Admin: 03/25/17 10:08 Dose: 1 applic Promethazine HCl (Phenergan Syrup) 12.5 mg PO Q6 PRN PRN Reason: Cough Stop: 04/04/17 10:03 Last Admin: 03/26/17 00:42 Dose: 12.5 mg Saccharomyces Boulardii (Florastor) 250 mg PO DAILY [facility] Last Admin: 03/25/17 10:04 Dose: 250 mg Sevelamer Carbonate (Renvela) 1.6 gm PO TIDCC [facility] Last Admin: 03/26/17 08:10 Dose: Not Given Vitamin A (Vitamin A & D Oint Ud Foilpak) 1 ea TOP BID PRN PRN Reason: Dry skin Last Admin: 03/17/17 10:02 Dose: 1 ea - Labs Labs: 03/26/17 07:37 03/26/17 07:37 PT 11.7 SECONDS (9.7-12.2) 03/13/17 08:31 INR 1.0 03/13/17 08:31 APTT 41 SECONDS (21-34) H 03/13/17 08:31 - Constitutional Appears: Well, Non-toxic, No Acute Distress - Head Exam Head Exam: ATRAUMATIC - Extremities Exam Additional comments: Wound VAC to right foot functioning at 100mmHg dressing intact - Neurological Exam Neurological Exam: Alert, Awake, Oriented x3 - Psychiatric Exam Psychiatric exam: Normal Affect, Normal Mood - Skin Skin Exam: Normal Color, Warm Assessment and Plan - Assessment and Plan (Free Text) Assessment: 51 y/o female patient 1) 11 days s/p right foot wound debridement. 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 Plan: Patient seen and evaluated at bedside Discussed in detail with attending, Dr. Ordonez Labs and vitals reviewed = afebrile Left foot remains open to air per PMD recommendation Continue with multipodus boots at all times while in bed bilaterally Strict NWB bilateral lower extremity Podiatry will continue to follow patient while in house
[2017-03-26] MEDS: Meropenem 500 MG in Sodium Chloride 0.9% 100 ML IVPB SCH (10:41)
[2017-03-26] MEDS: Zinc Oxide Topical 30 gm Tube TOP SCH ×2 (10:44→18:02)
[2017-03-26] MEDS: Clotrimazole/Betamethasone Cream(15 gm) TOP SCH ×3 (10:44→18:02)
[2017-03-26] MEDS: Dextrose 5%/0.45% NS 1,000 ML IV SCH (10:46)
[2017-03-26] MEDS: Benzoin Compound Tincture (60 ml) TOP SCH (10:58)
[2017-03-26] MEDS: Saccharomyces Boulardi 250 mg Cap PO SCH (10:59)
--- NOTE | 2017-03-26 13:14 | CP.PCM.PN ---
Subjective - Date & Time of Evaluation Date of Evaluation: 03/26/17 Time of Evaluation: 13:12 - Subjective Subjective: seen and examined denies any fevers chills sob chest pain dizzines rash c/o pain in foot c/o constipation c/o abdominal pain w/ movement. Reports clear pd fluid refused abdominal exam Objective - Vital Signs/Intake and Output Vital Signs (last 24 hours): Temp Pulse Resp BP Pulse Ox 97.9 F 98 H 20 141/81 93 L 03/26/17 08:26 03/26/17 08:26 03/26/17 08:26 03/26/17 08:26 03/26/17 08:26 - Medications Medications: Current Medications Acetaminophen (Tylenol 325mg Tab) 650 mg PO Q6 PRN PRN Reason: Pain, Mild (1-3) Last Admin: 03/24/17 17:41 Dose: 650 mg Acyclovir (Zovirax 5% Oint) 0 gm EXT Q3H [facility] [place] Last Admin: 03/26/17 10:42 Dose: 1 applic Albuterol (Ventolin Hfa 90 Mcg/Actuation (8 G)) 1 puff INH RQ6 PRN PRN Reason: Cough and congestion Stop: 04/04/17 10:05 Amlodipine Besylate (Norvasc) 10 mg PO DAILY [facility] [place] Last Admin: 03/26/17 10:59 Dose: Not Given Benzoin (Benzoin Compound Tincture) 2 ml TOP DAILY [facility] [place] Last Admin: 03/26/17 10:58 Dose: Not Given Betamethasone/Clotrimazole (Lotrisone) 1 gm TOP BID [facility] [place] Last Admin: 03/26/17 10:59 Dose: Not Given Carvedilol (Coreg) 12.5 mg PO BID [facility] [place] Last Admin: 03/26/17 10:58 Dose: Not Given Clopidogrel Bisulfate (Plavix) 75 mg PO DAILY [facility] [place] Last Admin: 03/26/17 10:59 Dose: Not Given Dextrose (Dextrose 50% Inj) 0 ml IV STAT PRN; Protocol PRN Reason: Hyglycemia Protocol Last Admin: 03/13/17 07:17 Dose: 25 ml Dextrose (Glutose 15) 0 gm PO ONCE PRN; Protocol PRN Reason: Hypoglycemia Protocol Last Admin: 03/26/17 07:17 Dose: 15 gm Diphenhydramine HCl (Benadryl) 25 mg IVP Q4 PRN PRN Reason: Itching / Pruritus Last Admin: 03/26/17 07:07 Dose: 25 mg Docusate Sodium (Colace) 100 mg PO Q8 PRN PRN Reason: Constipation Epoetin Alec (Procrit) 10,000 unit SC MWF [facility] [place] Last Admin: 03/25/17 17:52 Dose: 10,000 unit Hydromorphone HCl (Dilaudid) 0.5 mg IVP Q5H PRN PRN Reason: Pain, severe (8-10) Last Admin: 03/22/17 18:32 Dose: 0.5 mg Meropenem 500 mg/ Sodium (Chloride) 100 mls @ 100 mls/hr IVPB Q24H [facility] [place] Last Admin: 03/26/17 10:41 Dose: 100 mls/hr Dextrose/Sodium Chloride (Dextrose 5%/0.45% Ns 1000 Ml) 1,000 mls @ 70 mls/hr IV .[id number] [facility] [place] Last Admin: 03/26/17 10:46 Dose: 70 mls/hr Insulin Glargine (Lantus) 10 unit SC HS [facility] Last Admin: 03/25/17 21:33 Dose: 10 units Insulin Human Regular (Novolin R) 0 unit SC [facility] PRN Reason: Protocol Last Admin: 03/26/17 07:47 Dose: Not Given Lactulose (Enulose) 20 gm PO DAILY PRN PRN Reason: Constipation Last Admin: 03/26/17 07:14 Dose: 20 gm Linezolid (Zyvox) 600 mg PO Q12 [facility] [place] Last Admin: 03/26/17 11:01 Dose: Not Given Losartan Potassium (Cozaar) 100 mg PO DAILY@1800 [facility] [place] Last Admin: 03/25/17 17:53 Dose: 100 mg Morphine Sulfate (Morphine) 2 mg IVP Q3 PRN PRN Reason: Pain, moderate (4-7) Last Admin: 03/26/17 07:06 Dose: 2 mg Petrolatum (Desitin Original) 0 gm TOP BID [facility] [place] Last Admin: 03/26/17 10:44 Dose: 1 applic Promethazine HCl (Phenergan Syrup) 12.5 mg PO Q6 PRN PRN Reason: Cough Stop: 04/04/17 10:03 Last Admin: 03/26/17 00:42 Dose: 12.5 mg Saccharomyces Boulardii (Florastor) 250 mg PO DAILY [facility] [place] Last Admin: 03/26/17 10:59 Dose: Not Given Sevelamer Carbonate (Renvela) 1.6 gm PO TIDCC [facility] [place] Last Admin: 03/26/17 11:00 Dose: Not Given Vitamin A (Vitamin A & D Oint Ud Foilpak) 1 ea TOP BID PRN PRN Reason: Dry skin Last Admin: 03/17/17 10:02 Dose: 1 ea - Labs Labs: 03/26/17 07:37 03/26/17 07:37 PT 11.7 SECONDS (9.7-12.2) 03/13/17 08:31 INR 1.0 03/13/17 08:31 APTT 41 SECONDS (21-34) H 03/13/17 08:31 - Constitutional Appears: No Acute Distress, Chronically Ill - Head Exam Head Exam: NORMAL INSPECTION - Eye Exam Eye Exam: Normal appearance - ENT Exam ENT Exam: Mucous Membranes Moist, Normal Exam - Respiratory Exam Respiratory Exam: Clear to Ausculation Bilateral, NORMAL BREATHING PATTERN - Cardiovascular Exam Cardiovascular Exam: REGULAR RHYTHM, RRR - GI/Abdominal Exam GI & Abdominal Exam: Distended, Firm, Tenderness - Extremities Exam Extremities Exam: Normal Inspection, Pedal Edema (chronic skin changes) Assessment and Plan (1) Gangrene of right foot Status: Acute (2) Anemia Status: Acute (3) Diabetes mellitus Status: Acute (4) ESRD on peritoneal dialysis Status: Acute (5) Hyperkalemia Status: Acute (6) Hypertension Status: Acute - Assessment and Plan (Free Text) Assessment: maintain pd pd fluid cell count check abd x ray on meds for constipation, pt refusing meds
[2017-03-26] MEDS ORDERED: Promethazine/Cod 6.25mg-10mg/5ml Syr UD PO PRN (13:45)
[2017-03-26 16:14] LABS: BODY FLUID TYPE PERITONEAL/ASCITES
--- NOTE | 2017-03-26 16:59 | RAD ---
HISTORY: abdominal pain COMPARISON: No prior. FINDINGS: BOWEL: Extensive cysts left and right colonic stool. There are a few distal left-sided small bowel loops - mildly distended and a presumed mildly distended cecum and/ or ascending right colon. A partial and/or intermittent right colonic obstruction with incompetent ileocecal valve is 1 consideration. A top normal variation with extensive stool retention is also a consideration. No more proximal bowel dilated loops suggested BONES: Normal. OTHER FINDINGS: Very large body habitus. Multiple tubes projecting over the central abdomen pelvis and left lower quadrant - in their significance and intended positioning is not known. IMPRESSION: Extensive stool retention in this patient with large body habitus and overlying tubes. A partial obstruction at the right ascending colon level with an competent ileocecal valve is 1 consideration. Clinical follow up is recommended.
[2017-03-26 17:23] LABS: BF GROSS APPEARANCE CLEAR (CLEAR)
[2017-03-26 17:24] LABS: BODY FLUID TOTAL COUNT 100 (0-0)
--- NOTE | 2017-03-26 20:06 | CP.PCM.PN ---
Subjective - Date & Time of Evaluation Date of Evaluation: 03/26/17 Time of Evaluation: 20:04 - Subjective Subjective: Patient right now had an episode of vomiting. Since morning she was having at least 3 episodes of a bile he is vomiting. Currently patient is receiving the peritoneal dialysis and dwelling, and also abdominal distention. Noted. There is a tenderness in the right upper quadrant area. She did not have any bowel movements for some days. On rectal examination there is no stools noted, which was done today. Marked abdominal distention noted. Tympanic in character. I advised the patient to have a CT of the abdomen and pelvis to rule out ileus. Most likely patient has no bowel movements, possibly causing this problem. After the CAT scan will follow the patient. Objective - Vital Signs/Intake and Output Vital Signs (last 24 hours): Temp Pulse Resp BP Pulse Ox 98.3 F 106 H 19 122/83 91 L 03/26/17 16:32 03/26/17 16:32 03/26/17 16:32 03/26/17 16:32 03/26/17 16:32 Intake and Output: 03/26/17 03/27/17 18:59 06:59 Intake Total 340 Balance 340 - Medications Medications: Current Medications Acetaminophen (Tylenol 325mg Tab) 650 mg PO Q6 PRN PRN Reason: Pain, Mild (1-3) Last Admin: 03/24/17 17:41 Dose: 650 mg Acyclovir (Zovirax 5% Oint) 0 gm EXT Q3H [facility] Last Admin: 03/26/17 18:01 Dose: Not Given Albuterol (Ventolin Hfa 90 Mcg/Actuation (8 G)) 1 puff INH RQ6 PRN PRN Reason: Cough and congestion Stop: 04/04/17 10:05 Amlodipine Besylate (Norvasc) 10 mg PO DAILY [facility] Last Admin: 03/26/17 10:59 Dose: Not Given Benzoin (Benzoin Compound Tincture) 2 ml TOP DAILY [facility] Last Admin: 03/26/17 10:58 Dose: Not Given Betamethasone/Clotrimazole (Lotrisone) 1 gm TOP BID [facility] Last Admin: 03/26/17 18:02 Dose: Not Given Carvedilol (Coreg) 12.5 mg PO BID [facility] Last Admin: 03/26/17 18:01 Dose: Not Given Clopidogrel Bisulfate (Plavix) 75 mg PO DAILY [facility] Last Admin: 03/26/17 10:59 Dose: Not Given Dextrose (Dextrose 50% Inj) 0 ml IV STAT PRN; Protocol PRN Reason: Hyglycemia Protocol Last Admin: 03/13/17 07:17 Dose: 25 ml Dextrose (Glutose 15) 0 gm PO ONCE PRN; Protocol PRN Reason: Hypoglycemia Protocol Last Admin: 03/26/17 07:17 Dose: 15 gm Diphenhydramine HCl (Benadryl) 25 mg IVP Q4 PRN PRN Reason: Itching / Pruritus Last Admin: 03/26/17 07:07 Dose: 25 mg Docusate Sodium (Colace) 100 mg PO Q8 PRN PRN Reason: Constipation Epoetin Alec (Procrit) 10,000 unit SC MWF [facility] Last Admin: 03/25/17 17:52 Dose: 10,000 unit Hydromorphone HCl (Dilaudid) 0.5 mg IVP Q5H PRN PRN Reason: Pain, severe (8-10) Last Admin: 03/22/17 18:32 Dose: 0.5 mg Meropenem 500 mg/ Sodium (Chloride) 100 mls @ 100 mls/hr IVPB Q24H [facility] Last Admin: 03/26/17 10:41 Dose: 100 mls/hr Dextrose/Sodium Chloride (Dextrose 5%/0.45% Ns 1000 Ml) 1,000 mls @ 70 mls/hr IV .[id number] [facility] Last Admin: 03/26/17 10:46 Dose: 70 mls/hr Insulin Glargine (Lantus) 10 unit SC HS [facility] Last Admin: 03/25/17 21:33 Dose: 10 units Insulin Human Regular (Novolin R) 0 unit SC ACHS [facility] PRN Reason: Protocol Last Admin: 03/26/17 17:07 Dose: Not Given Lactulose (Enulose) 20 gm PO DAILY PRN PRN Reason: Constipation Last Admin: 03/26/17 07:14 Dose: 20 gm Linezolid (Zyvox) 600 mg PO Q12 [facility] Last Admin: 03/26/17 11:01 Dose: Not Given Losartan Potassium (Cozaar) 100 mg PO DAILY@1800 [facility] Last Admin: 03/26/17 18:01 Dose: Not Given Morphine Sulfate (Morphine) 2 mg IVP Q3 PRN PRN Reason: Pain, moderate (4-7) Last Admin: 03/26/17 07:06 Dose: 2 mg Petrolatum (Desitin Original) 0 gm TOP BID [facility] Last Admin: 03/26/17 18:02 Dose: Not Given Promethazine HCl/Codeine (Phenergan/Codeine Oral Syrup) 12.5 ml PO Q6 PRN PRN Reason: Cough Stop: 04/04/17 10:03 Saccharomyces Boulardii (Florastor) 250 mg PO DAILY [facility] Last Admin: 03/26/17 10:59 Dose: Not Given Sevelamer Carbonate (Renvela) 1.6 gm PO TIDCC [facility] Last Admin: 03/26/17 18:01 Dose: Not Given Vitamin A (Vitamin A & D Oint Ud Foilpak) 1 ea TOP BID PRN PRN Reason: Dry skin Last Admin: 03/17/17 10:02 Dose: 1 ea - Labs Labs: 03/26/17 07:37 03/26/17 07:37 PT 11.7 SECONDS (9.7-12.2) 03/13/17 08:31 INR 1.0 03/13/17 08:31 APTT 41 SECONDS (21-34) H 03/13/17 08:31
--- NOTE | 2017-03-26 21:45 | CT ---
EXAM: CT Abdomen and Pelvis Without Intravenous Contrast EXAM DATE/TIME: Exam ordered 03/26/2017 7:54 PM CLINICAL HISTORY: 51 years old, female; Pain and condition or disease; Ascites; Abdominal pain; Generalized; Additional info: Ascitis and ileus TECHNIQUE: Axial computed tomography images of the abdomen and pelvis without intravenous contrast. All CT scans at this facility use one or more dose reduction techniques, viz.: automated exposure control; ma/kV adjustment per patient size (including targeted exams where dose is matched to indication; i.e. head); or iterative reconstruction technique. Coronal and sagittal reformatted images were created and reviewed. COMPARISON: DX - ABDOMEN PORTABLE 2 VIEWS 2017-03-26 13:27 FINDINGS: Lower thorax: The heart is moderately enlarged. There is a small hiatal hernia. ABDOMEN: Liver: Unremarkable. Gallbladder and bile ducts: Unremarkable. No calcified stones. No ductal dilation. Pancreas: Unremarkable. No ductal dilation. Spleen: Unremarkable. No splenomegaly. Adrenals: Unremarkable. No mass. Kidneys and ureters: Calcifications are noted in both kidneys and appear to be vascular in nature. The osage kidneys are relatively atrophic. No hydronephrosis. Stomach and bowel: There is pneumatosis noted of the colon. There is a very large amount of stool seen within the colon. The rectal vault however is relatively empty. No mucosal thickening. Appendix: Not seen as a separate structure PELVIS: Bladder: Unremarkable. No stones. Reproductive: Unremarkable as visualized. ABDOMEN and PELVIS: Intraperitoneal space: There is a perihepatic and perisplenic ascites. Free air is noted within the abdomen. Bones/joints: No acute fracture. No dislocation. Soft tissues: Unremarkable. Vasculature: See above. Lymph nodes: Unremarkable. No enlarged lymph nodes. Tubes, lines and devices: A peritoneal dialysis catheter is noted coiled in the pelvis. Other findings: There is some advanced arteriosclerosis. IMPRESSION: 1. Pneumatosis noted of the the ascending and transverse colon. No portal venous gas. 2. Very large amount of stool noted within the ascending transverse and proximal descending colon. See above. 3. Moderate amount of intra-abdominal ascites with pneumoperitoneum. These may be related to the presence of a peritoneal dialysis catheter in the pelvis. Clinical correlation needed. 4. Moderate cardiomegaly. 5. Small hiatal hernia.
[2017-03-26] MEDS: (Lantus) Insulin Glargine, Recombinant SC SCH (22:41)
[2017-03-27] MEDS: Dextrose 5%/0.45% NS 1,000 ML IV SCH ×2 (01:53→14:16)
[2017-03-27] MEDS: Acyclovir 5% Oint (15 gm) EXT SCH ×4 (01:54→14:17)
[2017-03-27] MEDS: (Novolin R) Insulin Human Regular 100 units/ml vial SC SCH ×4 (07:59→23:44)
[2017-03-27] MEDS: Sevelamer Carb 0.8 gm/Packet PO SCH ×2 (08:52→14:17)
--- NOTE | 2017-03-27 10:20 | CP.PCM.CON ---
<ADRYANTRACIROLAN - Last Filed: 03/27/17 12:57> History of Present Illness - History of Present Illness History of Present Illness: Karishma Blankenship DO PGY1 - GI Consult Note for Dr. Lao Consultation for retained stool HPI: 51 yo F with PMH of DM, HTN, PVD, hypercholesterolemia, anemia, and ESRD on peritoneal dialysis, initially presented to the hospital for right foot pain 2/2 peripheral vascular occlusive disease s/p recent R fem-pop bypass, R INVESTIGATIONS MANAGER cath, and L common iliac stent. Patient had partial amputation of right foot on 02/12/2017. Consultation was requested for constipation, large amount of retained stool noted on CT A/P in cecum, ascending, transverse, and proximal descending colon. Patient reports that she has not had a BM in 2 weeks - but has been passing flatus, has not been tolerating PO diet for one week with nausea, and had three episodes of dark brown and green vomit yesterday. Patient also reports severe abdominal pain. Prior to admission, she did have some constipation, with 3-4 BMs weekly, with straining, difficulty, and occasional pain with BMs. Patient has been refusing meds and exams, and has been poorly compliant with her peritoneal dialysis for the past few days. Patient has been on multiple narcotics for pain after her surgery, which were stopped yesterday. She was also given one dose of lactulose yesterday, and a fleet enema. Nurse reports that she had a single small, hard, painful, bloody BM yesterday after the enema. Patient refused the enema this morning because of the pain she experienced yesterday. Patient now admits to fatigue, abdominal pain, nausea, constipation, bloating, vomiting yesterday, and no appetite. She denies F/C, diarrhea, urinary/bowel incontinence. 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, denies IVDU FHx: Denies All: NKDA Past Patient History - Infectious Disease Hx of Infectious Diseases: None - Past Medical History & Family History Past Medical History?: Yes - Past Social History Smoking Status: Never Smoked - CARDIAC Hx Hypercholesterolemia: Yes Hx Hypertension: Yes Hx Peripheral Vascular Disease: Yes - PULMONARY Hx Bronchitis: Yes Hx Pneumonia: Yes - RENAL Hx Chronic Kidney Disease: Yes Other/Comment: on peritoneal dialysis - ENDOCRINE/METABOLIC Hx Endocrine Disorders: Yes Hx Diabetes Mellitus Type 2: Yes - HEMATOLOGICAL/ONCOLOGICAL Hx Anemia: Yes - INTEGUMENTARY Hx Dermatological Problems: Yes Hx Eczema: Yes - MUSCULOSKELETAL/RHEUMATOLOGICAL Hx Falls: Yes - GENITOURINARY/GYNECOLOGICAL Hx Genitourinary Disorders: Yes (DX: RENAL FAILURE) - PSYCHIATRIC Hx Substance Use: No - SURGICAL HISTORY Hx Surgeries: Yes Hx Section: Yes Hx Eye Surgery: Yes (INSERT "GAS" BUBBLE BOTH EYES) Hx Tubal Ligation: Yes Hx Vascular Access Device: Yes (R SC HD cath) Other/Comment: I&D GROIN; 12/30/14 LAPAROSCOPIC INSERTION PERITONEAL DIALYSIS CATHETER. 01/14/15 REVISION DONE OF PERITIONEAL DIALYSIS CATH. - ANESTHESIA Hx Anesthesia: Yes Hx Anesthesia Reactions: No Hx Malignant Hyperthermia: No Meds Allergies/Adverse Reactions: Allergies Allergy/AdvReac Type Severity Reaction Status Date / Time shrimp Allergy Severe RASH Verified 01/11/17 07:35 - Medications Medications: Current Medications Acetaminophen (Tylenol 325mg Tab) 650 mg PO Q6 PRN PRN Reason: Pain, Mild (1-3) Last Admin: 03/27/17 08:09 Dose: 650 mg Acyclovir (Zovirax 5% Oint) 0 gm EXT Q3H [facility] Last Admin: 03/27/17 08:52 Dose: Not Given Amlodipine Besylate (Norvasc) 10 mg PO DAILY [facility] Last Admin: 03/26/17 10:59 Dose: Not Given Benzoin (Benzoin Compound Tincture) 2 ml TOP DAILY [facility] Last Admin: 03/26/17 10:58 Dose: Not Given Betamethasone/Clotrimazole (Lotrisone) 1 gm TOP BID [facility] Last Admin: 03/26/17 18:02 Dose: Not Given Carvedilol (Coreg) 12.5 mg PO BID [facility] Last Admin: 03/26/17 18:01 Dose: Not Given Clopidogrel Bisulfate (Plavix) 75 mg PO DAILY [facility] Last Admin: 03/26/17 10:59 Dose: Not Given Dextrose (Dextrose 50% Inj) 0 ml IV STAT PRN; Protocol PRN Reason: Hyglycemia Protocol Last Admin: 03/13/17 07:17 Dose: 25 ml Dextrose (Glutose 15) 0 gm PO ONCE PRN; Protocol PRN Reason: Hypoglycemia Protocol Last Admin: 03/26/17 07:17 Dose: 15 gm Diphenhydramine HCl (Benadryl) 25 mg IVP Q4 PRN PRN Reason: Itching / Pruritus Last Admin: 03/26/17 07:07 Dose: 25 mg Docusate Sodium (Colace) 100 mg PO Q8 PRN PRN Reason: Constipation Epoetin Alec (Procrit) 10,000 unit SC MWF [facility] Last Admin: 03/25/17 17:52 Dose: 10,000 unit Meropenem 500 mg/ Sodium (Chloride) 100 mls @ 100 mls/hr IVPB Q24H [facility] Last Admin: 03/26/17 10:41 Dose: 100 mls/hr Dextrose/Sodium Chloride (Dextrose 5%/0.45% Ns 1000 Ml) 1,000 mls @ 70 mls/hr IV .[id number] [facility] Last Admin: 03/27/17 01:53 Dose: Not Given Insulin Glargine (Lantus) 10 unit SC HS [facility] Last Admin: 03/26/17 22:41 Dose: Not Given Insulin Human Regular (Novolin R) 0 unit SC ACHS [facility] PRN Reason: Protocol Last Admin: 03/27/17 07:59 Dose: Not Given Lactulose (Enulose) 20 gm PO DAILY PRN PRN Reason: Constipation Last Admin: 03/26/17 07:14 Dose: 20 gm Linezolid (Zyvox) 600 mg PO Q12 [facility] Last Admin: 03/26/17 22:41 Dose: Not Given Losartan Potassium (Cozaar) 100 mg PO DAILY@1800 [facility] Last Admin: 03/26/17 18:01 Dose: Not Given Petrolatum (Desitin Original) 0 gm TOP BID [facility] Last Admin: 03/26/17 18:02 Dose: Not Given Saccharomyces Boulardii (Florastor) 250 mg PO DAILY [facility] Last Admin: 03/26/17 10:59 Dose: Not Given Sevelamer Carbonate (Renvela) 1.6 gm PO TIDCC [facility] Last Admin: 03/27/17 08:52 Dose: Not Given Vitamin A (Vitamin A & D Oint Ud Foilpak) 1 ea TOP BID PRN PRN Reason: Dry skin Last Admin: 03/17/17 10:02 Dose: 1 ea Physical Exam - Constitutional Appears: Toxic Additional comments: Mild distress - Head Exam Head Exam: ATRAUMATIC, NORMOCEPHALIC - Eye Exam Eye Exam: EOMI, Normal appearance - ENT Exam ENT Exam: Mucous Membranes Moist - Neck Exam Neck exam: Positive for: Full Rom, Normal Inspection - Respiratory Exam Respiratory Exam: Clear to Auscultation Bilateral, NORMAL BREATHING PATTERN - Cardiovascular Exam Cardiovascular Exam: RRR, +S1, +S2 - GI/Abdominal Exam Additional comments: Patient was barely tolerating exam, and did not permit thorough exam, beyond light palpation Distended abdomen, hyperresonant, severely tender R>L, firm but not rigid, guarding; severe pain with percussion Could not palpate for masses or organomegaly - Rectal Exam Additional comments: Dried blood noted perianal Soft brown stool in rectal vault. No impaction. - Extremities Exam Additional comments: Right foot dressing in place, appears clean and dry. Wound vac in place. - Neurological Exam Neurological exam: Alert, Oriented x3 - Psychiatric Exam Psychiatric exam: Agitated, Normal Affect - Skin Skin Exam: Dry, Intact Results - Vital Signs Recent Vital Signs: Last Vital Signs Temp 100.3 F H 03/27/17 08:09 Pulse 111 H 03/27/17 07:20 Resp 18 03/27/17 07:20 BP 147/78 03/27/17 07:20 Pulse Ox 97 03/27/17 07:20 - Labs Result Diagrams: 03/27/17 12:16 03/27/17 12:16 Labs: Laboratory Results - last 24 hr 03/26/17 03/26/17 03/26/17 11:56 16:12 16:54 POC Glucose (mg/dL) 90 94 Fluid Source Peritoneal/ascites Fluid Appearance Clear Fluid WBC 298.0 Fluid RBC 2.0 H Fluid Tot Cell Count 100 H Fluid Neutrophils 92.0 H Fluid Lymphocytes 2.0 H Fld Monocyte/Macrophag 6 H Fluid Comment 03/26/17 03/27/17 21:27 06:51 POC Glucose (mg/dL) 116 H 84 Fluid Source Fluid Appearance Fluid WBC Fluid RBC Fluid Tot Cell Count Fluid Neutrophils Fluid Lymphocytes Fld Monocyte/Macrophag Fluid Comment Assessment & Plan - Assessment and Plan (Free Text) Assessment: 51 yo F with PMH of DM, HTN, PVD, hypercholesterolemia, anemia, and ESRD on PD since 2014. Admitted to the hospital for right foot gangrene now s/p partial amputation. Now with severe constipation and peritoneal signs. Plan: 1. Constipation, acute on chronic - Patient reports 2 weeks with no BM until yesterday evening after receiving an enema, which resulted in a small, hard, painful, bloody BM - CT abdomen showed very large amount of stool in ascending, transverse, and proximal descending colon, as well as pneumatosis of the ascending and transverse colon and free peritoneal air - Likely multifactorial, 2/2 prolonged hospital stay with prolonged use of opiates; cannot rule out obstruction or pseudoobstruction at this time, no obvious mass or obstructing lesion noted on CT, though distinct caliber change indicates possibility of obstruction - Rectal exam showed soft brown stool in the rectal vault, with no apparent impaction - Ordered serial glycerin enema - Ordered daily serial abdominal XR - Maintain NPO - Hold narcotics - Bowel regimen, on lactulose and colace; continue gentle bowel regimen - No invasive decompression procedure at this time, due to high risk of perforation and rupture - Not currently a candidate for neostigmine for pseudoobstruction; cecal diameter <12cm - Recommend surgical consult for possible further surgical intervention for constipation and colonic pneumatosis 2. Peritonitis - Patient has had PD catheter since 2014 - Peritoneal fluid significant for PMN of 274; currently tachycardic, oral temp 100.3, with leukocytosis - Peritoneal signs on exam - CT abdomen showed free air, possibly 2/2 PD catheter - Recommend surgical consult as above, as well as for removal of PD catheter - Continue IV Abx - ID on consult, appreciate recs 3. ESRD on PD - Patient is on intermittent peritoneal dialysis with home equipment - Will require removal of PD catheter, as above - Nephrology on consult, appreciate recs Patient seen, discussed, and reviewed with attending <Olman Lao - Last Filed: 03/27/17 20:58> Meds - Medications Medications: Current Medications Acetaminophen (Tylenol 325mg Tab) 650 mg PO Q6 PRN PRN Reason: Pain, Mild (1-3) Last Admin: 03/27/17 16:24 Dose: 650 mg Amlodipine Besylate (Norvasc) 10 mg PO DAILY [facility] Last Admin: 03/27/17 10:41 Dose: 10 mg Benzocaine/Menthol (Cepacol Sore Throat) 1 poppy MT QID PRN PRN Reason: Sore Throat Carvedilol (Coreg) 12.5 mg PO BID [facility] Last Admin: 03/27/17 10:55 Dose: 12.5 mg Clopidogrel Bisulfate (Plavix) 75 mg PO DAILY [facility] Last Admin: 03/27/17 10:41 Dose: 75 mg Dextrose (Dextrose 50% Inj) 0 ml IV STAT PRN; Protocol PRN Reason: Hyglycemia Protocol Last Admin: 03/13/17 07:17 Dose: 25 ml Dextrose (Glutose 15) 0 gm PO ONCE PRN; Protocol PRN Reason: Hypoglycemia Protocol Last Admin: 03/26/17 07:17 Dose: 15 gm Diphenhydramine HCl (Benadryl) 25 mg IVP Q4 PRN PRN Reason: Itching / Pruritus Last Admin: 03/26/17 07:07 Dose: 25 mg Docusate Sodium (Colace) 100 mg PO Q8 PRN PRN Reason: Constipation Epoetin Alec (Procrit) 10,000 unit SC MWF [facility] Last Admin: 03/27/17 11:42 Dose: 10,000 unit Meropenem 500 mg/ Sodium (Chloride) 100 mls @ 100 mls/hr IVPB Q24H [facility] Last Admin: 03/27/17 10:40 Dose: 100 mls/hr Dextrose/Sodium Chloride (Dextrose 5%/0.45% Ns 1000 Ml) 1,000 mls @ 70 mls/hr IV .[id number] [facility] Last Admin: 03/27/17 14:16 Dose: Not Given Sodium Chloride (Sodium Chloride 0.9%) 1,000 mls @ 75 mls/hr IV .[id number] [facility] Insulin Glargine (Lantus) 10 unit SC HS [facility] Last Admin: 03/26/17 22:41 Dose: Not Given Insulin Human Regular (Novolin R) 0 unit SC ACHS [facility] PRN Reason: Protocol Last Admin: 03/27/17 17:16 Dose: Not Given Lactulose (Enulose) 20 gm PO DAILY PRN PRN Reason: Constipation Last Admin: 03/27/17 11:43 Dose: 20 gm Linezolid (Zyvox) 600 mg PO Q12 [facility] Last Admin: 03/27/17 10:41 Dose: 600 mg Losartan Potassium (Cozaar) 100 mg PO DAILY@1800 [facility] Last Admin: 03/26/17 18:01 Dose: Not Given Mineral Oil (Fleet Mineral Oil Enema) 135 ml RC Q2 [facility] Last Admin: 03/27/17 17:16 Dose: Not Given Results - Vital Signs Recent Vital Signs: Last Vital Signs Temp 102.4 F H 03/27/17 16:24 Pulse 108 H 03/27/17 16:00 Resp 20 03/27/17 16:00 BP 129/77 03/27/17 16:00 Pulse Ox 96 03/27/17 16:00 - Labs Result Diagrams: 03/27/17 12:16 03/27/17 12:16 Labs: Laboratory Results - last 24 hr 03/26/17 03/27/17 03/27/17 21:27 06:51 11:42 WBC RBC Hgb Hct MCV MCH MCHC RDW Plt Count MPV Neut % (Auto) Lymph % (Auto) [facility] % (Auto) Eos % (Auto) Baso % (Auto) Neut # Lymph # [facility] [place] [facility] # Eos # Baso # Neutrophils % (Manual) Lymphocytes % (Manual) Monocytes % (Manual) Platelet Estimate Large Platelets Hypochromasia (manual) Poikilocytosis (manual Anisocytosis (manual) Microcytosis (manual) Sodium Potassium Chloride Carbon Dioxide Anion Gap BUN Creatinine Est GFR ( Amer) Est GFR (Non-Af Amer) POC Glucose (mg/dL) 116 H 84 80 Random Glucose Lactic Acid Calcium Total Bilirubin AST ALT Alkaline Phosphatase Total Protein Albumin Globulin Albumin/Globulin Ratio Beta HCG, Quant Blood Type Antibody Screen 03/27/17 03/27/17 03/27/17 12:16 12:16 16:05 WBC 24.6 H D RBC 2.13 L Hgb 6.3 L* Hct 20.0 L MCV 93.7 MCH 29.6 MCHC 31.6 L RDW 16.2 H Plt Count 204 MPV 7.9 Neut % (Auto) 86.4 H Lymph % (Auto) 7.[address] [place] % (Auto) 6.0 Eos % (Auto) 0.2 Baso % (Auto) 0.4 Neut # 21.2 H Lymph # 1.7 [facility] [place] # 1.5 H Eos # 0.0 Baso # 0.1 Neutrophils % (Manual) 85 H Lymphocytes % (Manual) 9 L Monocytes % (Manual) 6 Platelet Estimate Normal Large Platelets Present Hypochromasia (manual) Moderate Poikilocytosis (manual Slight Anisocytosis (manual) Slight Microcytosis (manual) Slight Sodium 130 L Potassium 4.0 Chloride 92 L Carbon Dioxide 27 Anion Gap 16 BUN 60 H Creatinine 11.3 H* Est GFR ( Amer) 4 Est GFR (Non-Af Amer) 4 POC Glucose (mg/dL) 73 Random Glucose 71 Lactic Acid Calcium 8.8 Total Bilirubin 0.5 AST 36 D ALT 35 Alkaline Phosphatase 77 Total Protein 6.4 Albumin 2.6 L Globulin 3.8 Albumin/Globulin Ratio 0.7 L Beta HCG, Quant Blood Type Antibody Screen 03/27/17 03/27/17 03/27/17 17:13 17:13 18:20 WBC RBC Hgb Hct MCV MCH MCHC RDW Plt Count MPV Neut % (Auto) Lymph % (Auto) [facility] [place] [facility] % (Auto) Eos % (Auto) Baso % (Auto) Neut # Lymph # [facility] # Eos # Baso # Neutrophils % (Manual) Lymphocytes % (Manual) Monocytes % (Manual) Platelet Estimate Large Platelets Hypochromasia (manual) Poikilocytosis (manual Anisocytosis (manual) Microcytosis (manual) Sodium Potassium Chloride Carbon Dioxide Anion Gap BUN Creatinine Est GFR ( Amer) Est GFR (Non-Af Amer) POC Glucose (mg/dL) Random Glucose Lactic Acid 1.2 Calcium Total Bilirubin AST ALT Alkaline Phosphatase Total Protein Albumin Globulin Albumin/Globulin Ratio Beta HCG, Quant < 2.39 Blood Type O POSITIVE Antibody Screen Negative Attending/Attestation - Attestation I have personally seen and examined this patient.: Yes I have fully participated in the care of the patient.: Yes I have reviewed all pertinent clinical information: Yes Notes (Text): 03/27/17 11:20 AM 51 year old female with h/o DM, HTN, PVD, HLD, ESRD on PD admitted with foot gangrene s/p partial amputation, we are consulted for abdominal distnetion/pain , pneumotosis intestinalis, peritonitis. 1. Bacterial peritonitis 2. Pneumotosis intestinalis 3. Partial colonic obstruction vs pseudoobstruction Plan: -patient seen and examined this morning -she has a worsening leukocytosis, fever, and tender abdomen with peritoneal signs -her peritoneal fluid cell count is consistent with bacterial peritonitis -her CT scan shows significant right sided colonic distention with caliber change suggestive of partial obstruction or localized ileus -she has prior h/o multiple episodes of bacterial peritonitis as a consequence of peritoneal dialysis -her abdomen is distended and very tender with signs of peritonitis -her CT shows pneumotosis of the colon suggestive impending colonic perforation or intra-abdominal catastrophe -currently she is on broad spectrum antibiotics -would recommend removal of peritoneal catheter and transition to hemodialysis, appreciate renal input -would recommend surgical evaluation and consideration of surgical intervention for impending colonic perforation/peritonitis -do not expect the patient to improve with conservative medical therapy ( laxatives, antibiotics, supportive measures) -aggressive supportive care
[2017-03-27] MEDS: Meropenem 500 MG in Sodium Chloride 0.9% 100 ML IVPB SCH (10:40)
[2017-03-27] MEDS: Saccharomyces Boulardi 250 mg Cap PO SCH (10:41)
[2017-03-27] MEDS: Benzoin Compound Tincture (60 ml) TOP SCH (11:04)
[2017-03-27] MEDS: Zinc Oxide Topical 30 gm Tube TOP SCH (11:05)
[2017-03-27] MEDS: Clotrimazole/Betamethasone Cream(15 gm) TOP SCH (11:05)
[2017-03-27] MEDS: EPOETIN ALFA 10,000 UNIT/ML ML SC SCH (11:42)
[2017-03-27] MEDS: Mineral Oil Enema 135 ml RC SCH ×3 (12:00→17:16)
[2017-03-27 12:22] LABS: BASO # 0.1 K/uL (0.0-0.2); BASO % 0.4 % (0.0-2.0); EOS % 0.2 % (0.0-4.0); LYMPH # 1.7 K/uL (1.0-4.3); MEAN CELL VOLUME 93.7 fL (81.0-99.0); MEAN CORPUSCULAR HEMOGLOBIN 29.6 pg (27.0-31.0); MEAN CORPUSCULAR HGB CONC 31.6 g/dL (33.0-37.0); MEAN PLATELET VOLUME 7.9 fL (7.2-11.7); MONO # 1.5 K/uL (0.0-0.8); PLATELET COUNT 204 K/uL (130-400); RED CELL DISTRIBUTION WIDTH 16.2 % (11.5-14.5); WHITE BLOOD COUNT 24.6 K/uL (4.8-10.8)
[2017-03-27 12:37] LABS: BILIRUBIN,TOTAL 0.5 mg/dL (0.2-1.3)
[2017-03-27 12:38] LABS: ALB/GLOB RATIO 0.7 (1.0-2.1); CALCIUM 8.8 mg/dl (8.6-10.4); TOTAL PROTEIN 6.4 g/dL (6.3-8.3)
[2017-03-27 13:01] LABS: NEUTROPHIL 85 % (50-75); TOTAL CELLS COUNTED 100
--- NOTE | 2017-03-27 13:03 | CP.PCM.PN ---
Subjective - Date & Time of Evaluation Date of Evaluation: 03/27/17 Time of Evaluation: 09:50 - Subjective Subjective: Podiatry progress note- Dr. Ordonez 51 year old female patient seen at bedside 12 days s/p right foot wound debridement of non-healing amputation site. AAOx3 and NAD. Patient complains of pain to right foor amputation site. Patient denies N/V/F/D/C/SOB/calf pain. Patient encouraged. Objective - Vital Signs/Intake and Output Vital Signs (last 24 hours): Temp Pulse Resp BP Pulse Ox 100.3 F H 111 H 18 132/68 97 03/27/17 08:09 03/27/17 07:20 03/27/17 07:20 03/27/17 10:55 03/27/17 07:20 Intake and Output: 03/27/17 03/27/17 06:59 18:59 Intake Total 400 Balance 400 - Medications Medications: Current Medications Acetaminophen (Tylenol 325mg Tab) 650 mg PO Q6 PRN PRN Reason: Pain, Mild (1-3) Last Admin: 03/27/17 08:09 Dose: 650 mg Acyclovir (Zovirax 5% Oint) 0 gm EXT Q3H [facility] Last Admin: 03/27/17 08:52 Dose: Not Given Amlodipine Besylate (Norvasc) 10 mg PO DAILY [facility] Last Admin: 03/27/17 10:41 Dose: 10 mg Betamethasone/Clotrimazole (Lotrisone) 1 gm TOP BID [facility] Last Admin: 03/27/17 11:05 Dose: Not Given Carvedilol (Coreg) 12.5 mg PO BID [facility] Last Admin: 03/27/17 10:55 Dose: 12.5 mg Clopidogrel Bisulfate (Plavix) 75 mg PO DAILY [facility] Last Admin: 03/27/17 10:41 Dose: 75 mg Dextrose (Dextrose 50% Inj) 0 ml IV STAT PRN; Protocol PRN Reason: Hyglycemia Protocol Last Admin: 03/13/17 07:17 Dose: 25 ml Dextrose (Glutose 15) 0 gm PO ONCE PRN; Protocol PRN Reason: Hypoglycemia Protocol Last Admin: 03/26/17 07:17 Dose: 15 gm Diphenhydramine HCl (Benadryl) 25 mg IVP Q4 PRN PRN Reason: Itching / Pruritus Last Admin: 03/26/17 07:07 Dose: 25 mg Docusate Sodium (Colace) 100 mg PO Q8 PRN PRN Reason: Constipation Epoetin Alec (Procrit) 10,000 unit SC MWF [facility] Last Admin: 03/27/17 11:42 Dose: 10,000 unit Meropenem 500 mg/ Sodium (Chloride) 100 mls @ 100 mls/hr IVPB Q24H [facility] Last Admin: 03/27/17 10:40 Dose: 100 mls/hr Dextrose/Sodium Chloride (Dextrose 5%/0.45% Ns 1000 Ml) 1,000 mls @ 70 mls/hr IV .[id number] [facility] Last Admin: 03/27/17 01:53 Dose: Not Given Insulin Glargine (Lantus) 10 unit SC HS [facility] Last Admin: 03/26/17 22:41 Dose: Not Given Insulin Human Regular (Novolin R) 0 unit SC ACHS [facility] PRN Reason: Protocol Last Admin: 03/27/17 07:59 Dose: Not Given Lactulose (Enulose) 20 gm PO DAILY PRN PRN Reason: Constipation Last Admin: 03/27/17 11:43 Dose: 20 gm Linezolid (Zyvox) 600 mg PO Q12 [facility] Last Admin: 03/27/17 10:41 Dose: 600 mg Losartan Potassium (Cozaar) 100 mg PO DAILY@1800 [facility] Last Admin: 03/26/17 18:01 Dose: Not Given Mineral Oil (Fleet Mineral Oil Enema) 135 ml RC Q2 [facility] Petrolatum (Desitin Original) 0 gm TOP BID [facility] Last Admin: 03/27/17 11:05 Dose: Not Given Saccharomyces Boulardii (Florastor) 250 mg PO DAILY [facility] Last Admin: 03/27/17 10:41 Dose: 250 mg Sevelamer Carbonate (Renvela) 1.6 gm PO TIDCC [facility] Last Admin: 03/27/17 08:52 Dose: Not Given Vitamin A (Vitamin A & D Oint Ud Foilpak) 1 ea TOP BID PRN PRN Reason: Dry skin Last Admin: 03/17/17 10:02 Dose: 1 ea - Labs Labs: 03/27/17 12:16 03/27/17 12:16 PT 11.7 SECONDS (9.7-12.2) 03/13/17 08:31 INR 1.0 03/13/17 08:31 APTT 41 SECONDS (21-34) H 03/13/17 08:31 - Constitutional Appears: Well, Non-toxic, No Acute Distress - Extremities Exam Additional comments: Wound VAC to right foot functioning at 100mmHg dressing intact - Neurological Exam Neurological Exam: Oriented x3 - Skin Skin Exam: Normal Color, Warm Assessment and Plan - Assessment and Plan (Free Text) Assessment: 51 y/o female patient 1) 12 days s/p right foot wound debridement. 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 Plan: Patient seen and evaluated at bedside Discussed in detail with attending, Dr. Ordonez Labs and vitals reviewed = 24.6 WBC, afebrile Left foot remains open to air per PMD recommendation Continue with multipodus boots at all times while in bed bilaterally Strict NWB bilateral lower extremity Podiatry will continue to follow patient while in house
[2017-03-27 13:04] LABS: LARGE PLATELETS PRESENT
--- NOTE | 2017-03-27 13:47 | CP.PCM.PN ---
Subjective - Date & Time of Evaluation Date of Evaluation: 03/27/17 Time of Evaluation: 13:44 - Subjective Subjective: seen this am pt is refusing enema last night and this am had very small bm last night no vomiting this am but wbc is high low grade fever noted spoke to surgery and GI if no improvement with conservative treatment today she will need colostomy surgeon spoke to pt and pt is not giving any reply I tried to call her brother at [phone]. but no response and left message will continue to talk to her about the surgery. 5.39PM spoke to pt brother in detail explained the concern of the colon obstruction pt again refused the enemas But now with high wbc, and now has fever, and hypersomnolance, I spoke to surgeon and will do the surgery tonight I also explained pt and brother about the hemodialysis and blood transfusion both agreed PD will be on hold she may need HD post surgery will closely monitor after that ID f/u Objective - Vital Signs/Intake and Output Vital Signs (last 24 hours): Temp Pulse Resp BP Pulse Ox 100.3 F H 111 H 18 132/68 97 03/27/17 08:09 03/27/17 07:20 03/27/17 07:20 03/27/17 10:55 03/27/17 07:20 Intake and Output: 03/27/17 03/27/17 06:59 18:59 Intake Total 400 Balance 400 - Medications Medications: Current Medications Acetaminophen (Tylenol 325mg Tab) 650 mg PO Q6 PRN PRN Reason: Pain, Mild (1-3) Last Admin: 03/27/17 08:09 Dose: 650 mg Acyclovir (Zovirax 5% Oint) 0 gm EXT Q3H [facility] Last Admin: 03/27/17 08:52 Dose: Not Given Amlodipine Besylate (Norvasc) 10 mg PO DAILY [facility] Last Admin: 03/27/17 10:41 Dose: 10 mg Betamethasone/Clotrimazole (Lotrisone) 1 gm TOP BID [facility] Last Admin: 03/27/17 11:05 Dose: Not Given Carvedilol (Coreg) 12.5 mg PO BID [facility] Last Admin: 03/27/17 10:55 Dose: 12.5 mg Clopidogrel Bisulfate (Plavix) 75 mg PO DAILY [facility] Last Admin: 03/27/17 10:41 Dose: 75 mg Dextrose (Dextrose 50% Inj) 0 ml IV STAT PRN; Protocol PRN Reason: Hyglycemia Protocol Last Admin: 03/13/17 07:17 Dose: 25 ml Dextrose (Glutose 15) 0 gm PO ONCE PRN; Protocol PRN Reason: Hypoglycemia Protocol Last Admin: 03/26/17 07:17 Dose: 15 gm Diphenhydramine HCl (Benadryl) 25 mg IVP Q4 PRN PRN Reason: Itching / Pruritus Last Admin: 03/26/17 07:07 Dose: 25 mg Docusate Sodium (Colace) 100 mg PO Q8 PRN PRN Reason: Constipation Epoetin Alec (Procrit) 10,000 unit SC MWF [facility] Last Admin: 03/27/17 11:42 Dose: 10,000 unit Meropenem 500 mg/ Sodium (Chloride) 100 mls @ 100 mls/hr IVPB Q24H [facility] Last Admin: 03/27/17 10:40 Dose: 100 mls/hr Dextrose/Sodium Chloride (Dextrose 5%/0.45% Ns 1000 Ml) 1,000 mls @ 70 mls/hr IV .[id number] [facility] Last Admin: 03/27/17 01:53 Dose: Not Given Insulin Glargine (Lantus) 10 unit SC HS [facility] Last Admin: 03/26/17 22:41 Dose: Not Given Insulin Human Regular (Novolin R) 0 unit SC ACHS [facility] PRN Reason: Protocol Last Admin: 03/27/17 07:59 Dose: Not Given Lactulose (Enulose) 20 gm PO DAILY PRN PRN Reason: Constipation Last Admin: 03/27/17 11:43 Dose: 20 gm Linezolid (Zyvox) 600 mg PO Q12 [facility] Last Admin: 03/27/17 10:41 Dose: 600 mg Losartan Potassium (Cozaar) 100 mg PO DAILY@1800 [facility] Last Admin: 03/26/17 18:01 Dose: Not Given Mineral Oil (Fleet Mineral Oil Enema) 135 ml RC Q2 [facility] Petrolatum (Desitin Original) 0 gm TOP BID [facility] Last Admin: 03/27/17 11:05 Dose: Not Given Saccharomyces Boulardii (Florastor) 250 mg PO DAILY [facility] Last Admin: 03/27/17 10:41 Dose: 250 mg Sevelamer Carbonate (Renvela) 1.6 gm PO TIDCC [facility] Last Admin: 03/27/17 08:52 Dose: Not Given Vitamin A (Vitamin A & D Oint Ud Foilpak) 1 ea TOP BID PRN PRN Reason: Dry skin Last Admin: 03/17/17 10:02 Dose: 1 ea - Labs Labs: 03/27/17 12:16 03/27/17 12:16 PT 11.7 SECONDS (9.7-12.2) 03/13/17 08:31 INR 1.0 03/13/17 08:31 APTT 41 SECONDS (21-34) H 03/13/17 08:31
--- NOTE | 2017-03-27 14:20 | CP.PCM.PN ---
Subjective - Date & Time of Evaluation Date of Evaluation: 03/27/17 Time of Evaluation: 14:18 - Subjective Subjective: More lethargic Has been febrile PD fluid reported clear PD cell count not consistent with peritonitis plans for right BKA noted on IV ABs Leukocytosis noted No diarrhea Objective - Vital Signs/Intake and Output Vital Signs (last 24 hours): Temp Pulse Resp BP Pulse Ox 100.3 F H 111 H 18 132/68 97 03/27/17 08:09 03/27/17 07:20 03/27/17 07:20 03/27/17 10:55 03/27/17 07:20 Intake and Output: 03/27/17 03/27/17 06:59 18:59 Intake Total 400 Balance 400 - Medications Medications: Current Medications Acetaminophen (Tylenol 325mg Tab) 650 mg PO Q6 PRN PRN Reason: Pain, Mild (1-3) Last Admin: 03/27/17 08:09 Dose: 650 mg Acyclovir (Zovirax 5% Oint) 0 gm EXT Q3H [facility] Last Admin: 03/27/17 14:17 Dose: Not Given Amlodipine Besylate (Norvasc) 10 mg PO DAILY [facility] Last Admin: 03/27/17 10:41 Dose: 10 mg Betamethasone/Clotrimazole (Lotrisone) 1 gm TOP BID [facility] Last Admin: 03/27/17 11:05 Dose: Not Given Carvedilol (Coreg) 12.5 mg PO BID [facility] Last Admin: 03/27/17 10:55 Dose: 12.5 mg Clopidogrel Bisulfate (Plavix) 75 mg PO DAILY [facility] Last Admin: 03/27/17 10:41 Dose: 75 mg Dextrose (Dextrose 50% Inj) 0 ml IV STAT PRN; Protocol PRN Reason: Hyglycemia Protocol Last Admin: 03/13/17 07:17 Dose: 25 ml Dextrose (Glutose 15) 0 gm PO ONCE PRN; Protocol PRN Reason: Hypoglycemia Protocol Last Admin: 03/26/17 07:17 Dose: 15 gm Diphenhydramine HCl (Benadryl) 25 mg IVP Q4 PRN PRN Reason: Itching / Pruritus Last Admin: 03/26/17 07:07 Dose: 25 mg Docusate Sodium (Colace) 100 mg PO Q8 PRN PRN Reason: Constipation Epoetin Alec (Procrit) 10,000 unit SC MWF [facility] Last Admin: 03/27/17 11:42 Dose: 10,000 unit Meropenem 500 mg/ Sodium (Chloride) 100 mls @ 100 mls/hr IVPB Q24H [facility] Last Admin: 03/27/17 10:40 Dose: 100 mls/hr Dextrose/Sodium Chloride (Dextrose 5%/0.45% Ns 1000 Ml) 1,000 mls @ 70 mls/hr IV .[id number] [facility] Last Admin: 03/27/17 14:16 Dose: Not Given Insulin Glargine (Lantus) 10 unit SC HS [facility] Last Admin: 03/26/17 22:41 Dose: Not Given Insulin Human Regular (Novolin R) 0 unit SC ACHS [facility] PRN Reason: Protocol Last Admin: 03/27/17 14:17 Dose: Not Given Lactulose (Enulose) 20 gm PO DAILY PRN PRN Reason: Constipation Last Admin: 03/27/17 11:43 Dose: 20 gm Linezolid (Zyvox) 600 mg PO Q12 [facility] Last Admin: 03/27/17 10:41 Dose: 600 mg Losartan Potassium (Cozaar) 100 mg PO DAILY@1800 [facility] Last Admin: 03/26/17 18:01 Dose: Not Given Mineral Oil (Fleet Mineral Oil Enema) 135 ml RC Q2 [facility] Petrolatum (Desitin Original) 0 gm TOP BID [facility] Last Admin: 03/27/17 11:05 Dose: Not Given Saccharomyces Boulardii (Florastor) 250 mg PO DAILY [facility] Last Admin: 03/27/17 10:41 Dose: 250 mg Sevelamer Carbonate (Renvela) 1.6 gm PO TIDCC [facility] Last Admin: 03/27/17 14:17 Dose: Not Given Vitamin A (Vitamin A & D Oint Ud Foilpak) 1 ea TOP BID PRN PRN Reason: Dry skin Last Admin: 03/17/17 10:02 Dose: 1 ea - Labs Labs: 03/27/17 12:16 03/27/17 12:16 PT 11.7 SECONDS (9.7-12.2) 03/13/17 08:31 INR 1.0 03/13/17 08:31 APTT 41 SECONDS (21-34) H 03/13/17 08:31 - Constitutional Appears: Confused, Chronically Ill - Head Exam Head Exam: ATRAUMATIC, NORMAL INSPECTION - Eye Exam Eye Exam: EOMI, Normal appearance - Neck Exam Neck Exam: Normal Inspection. absent: Tenderness - Respiratory Exam Respiratory Exam: Clear to Ausculation Bilateral, NORMAL BREATHING PATTERN - Cardiovascular Exam Cardiovascular Exam: REGULAR RHYTHM, +S1 - GI/Abdominal Exam GI & Abdominal Exam: Distended, Tenderness - Extremities Exam Extremities Exam: Joint Swelling, Tenderness - Neurological Exam Neurological Exam: Altered, CN II-XII Intact - Skin Skin Exam: Dry, Warm Assessment and Plan (1) Type 1 diabetes mellitus with diabetic nephropathy Status: Acute (2) Gangrene of right foot Status: Acute (3) End stage renal disease Status: Acute - Assessment and Plan (Free Text) Plan: IV ABs right BKA soon Monitor for sepsis Continue PD for now
--- NOTE | 2017-03-27 14:43 | RAD ---
HISTORY: peritonitis, free air; constipation COMPARISON: No prior. FINDINGS: BOWEL: Prominent retained fecal material is identified at the ascending and hepatic flexure segments as well as the proximal to mid transverse colon with a lesser volume of retained fecal material throughout the remainder of the colon. Consider constipation. No gaseous dilated small bowel loops identified. Tubing at the left denise abdomen is difficult to discriminate whether this is within the peritoneal space or simply on top of or posterior to the left lower quadrant. No suspicious findings are appreciate the regions of the bilateral renal silhouettes. BONES: Normal. OTHER FINDINGS: . IMPRESSION: Prominent retained fecal material seen in the right hemicolon with gas and stool the mid to distal large bowel potentially reflecting constipation. No gross free intrarenal gas identified. Clinically correlate further. Translucent tubing tube is identified terminating at the soft tissues medial and superior to the posterior superior iliac crest.It is unclear whether this is intraperitoneal or extraperitoneal. Further clinical correlation is advised.
[2017-03-27] MEDS ORDERED: Sodium Chloride 0.9% 1,000 ML IV SCH ×2 (16:15→23:47)
--- NOTE | 2017-03-27 16:30 | CP.PCM.PN ---
Objective - Vital Signs/Intake and Output Vital Signs (last 24 hours): Temp Pulse Resp BP Pulse Ox 102.4 F H 111 H 18 132/68 97 03/27/17 16:24 03/27/17 07:20 03/27/17 07:20 03/27/17 10:55 03/27/17 07:20 Intake and Output: 03/27/17 03/27/17 06:59 18:59 Intake Total 400 Balance 400 - Medications Medications: Current Medications Acetaminophen (Tylenol 325mg Tab) 650 mg PO Q6 PRN PRN Reason: Pain, Mild (1-3) Last Admin: 03/27/17 16:24 Dose: 650 mg Acyclovir (Zovirax 5% Oint) 0 gm EXT Q3H [facility] Last Admin: 03/27/17 14:17 Dose: Not Given Amlodipine Besylate (Norvasc) 10 mg PO DAILY [facility] Last Admin: 03/27/17 10:41 Dose: 10 mg Benzocaine/Menthol (Cepacol Sore Throat) 1 poppy MT QID PRN PRN Reason: Sore Throat Betamethasone/Clotrimazole (Lotrisone) 1 gm TOP BID [facility] Last Admin: 03/27/17 11:05 Dose: Not Given Carvedilol (Coreg) 12.5 mg PO BID [facility] Last Admin: 03/27/17 10:55 Dose: 12.5 mg Clopidogrel Bisulfate (Plavix) 75 mg PO DAILY [facility] Last Admin: 03/27/17 10:41 Dose: 75 mg Dextrose (Dextrose 50% Inj) 0 ml IV STAT PRN; Protocol PRN Reason: Hyglycemia Protocol Last Admin: 03/13/17 07:17 Dose: 25 ml Dextrose (Glutose 15) 0 gm PO ONCE PRN; Protocol PRN Reason: Hypoglycemia Protocol Last Admin: 03/26/17 07:17 Dose: 15 gm Diphenhydramine HCl (Benadryl) 25 mg IVP Q4 PRN PRN Reason: Itching / Pruritus Last Admin: 03/26/17 07:07 Dose: 25 mg Docusate Sodium (Colace) 100 mg PO Q8 PRN PRN Reason: Constipation Epoetin Alec (Procrit) 10,000 unit SC MWF [facility] Last Admin: 03/27/17 11:42 Dose: 10,000 unit Meropenem 500 mg/ Sodium (Chloride) 100 mls @ 100 mls/hr IVPB Q24H [facility] Last Admin: 03/27/17 10:40 Dose: 100 mls/hr Dextrose/Sodium Chloride (Dextrose 5%/0.45% Ns 1000 Ml) 1,000 mls @ 70 mls/hr IV .[id number] [facility] Last Admin: 03/27/17 14:16 Dose: Not Given Sodium Chloride (Sodium Chloride 0.9%) 1,000 mls @ 75 mls/hr IV .[id number] [facility] Insulin Glargine (Lantus) 10 unit SC HS [facility] Last Admin: 03/26/17 22:41 Dose: Not Given Insulin Human Regular (Novolin R) 0 unit SC ACHS [facility] PRN Reason: Protocol Last Admin: 03/27/17 14:17 Dose: Not Given Lactulose (Enulose) 20 gm PO DAILY PRN PRN Reason: Constipation Last Admin: 03/27/17 11:43 Dose: 20 gm Linezolid (Zyvox) 600 mg PO Q12 [facility] Last Admin: 03/27/17 10:41 Dose: 600 mg Losartan Potassium (Cozaar) 100 mg PO DAILY@1800 [facility] Last Admin: 03/26/17 18:01 Dose: Not Given Mineral Oil (Fleet Mineral Oil Enema) 135 ml RC Q2 [facility] Petrolatum (Desitin Original) 0 gm TOP BID [facility] Last Admin: 03/27/17 11:05 Dose: Not Given Saccharomyces Boulardii (Florastor) 250 mg PO DAILY [facility] Last Admin: 03/27/17 10:41 Dose: 250 mg Sevelamer Carbonate (Renvela) 1.6 gm PO TIDCC [facility] Last Admin: 03/27/17 14:17 Dose: Not Given Vitamin A (Vitamin A & D Oint Ud Foilpak) 1 ea TOP BID PRN PRN Reason: Dry skin Last Admin: 03/17/17 10:02 Dose: 1 ea - Labs Labs: 03/27/17 12:16 03/27/17 12:16 PT 11.7 SECONDS (9.7-12.2) 03/13/17 08:31 INR 1.0 03/13/17 08:31 APTT 41 SECONDS (21-34) H 03/13/17 08:31 - Extremities Exam Additional comments: RLE dressing in place
[2017-03-27] MEDS ORDERED: Lidocaine 1% Inj (20ml) ONE (18:41)
[2017-03-27] MEDS ORDERED: HEPARIN-NS 5,000 UNITS/500 ML 5,000 UNIT/500 ML BAG IV ONE (18:43)
[2017-03-27] MEDS ORDERED: Midazolam 2 MG/2 ML VIAL ONE (18:49)
[2017-03-27] MEDS ORDERED: Calcium Chloride 1000 mg/10 ml Syringe IV ONE (19:15)
[2017-03-27] MEDS ORDERED: Sodium Chloride 0.9% 500 ML IV ONE ×4 (19:25→19:40)
[2017-03-27] MEDS ORDERED: Lactated Ringer's 1,000 ML IV ONE ×4 (19:25→19:50)
[2017-03-27] MEDS ORDERED: Bacitracin Ointment 30 GM TUBE ONE (21:40)
--- NOTE | 2017-03-27 22:35 | PCM.SURG1 ---
Surgeon's Initial Post Op Note - Surgeon's Notes Surgeon: Dr. Clark Log Data Technician: Dr. Chin PGY-3 Type of Anesthesia: General Endo Pre-Operative Diagnosis: Severe fecal retention Operative Findings: Severely dilated colon Post-Operative Diagnosis: Severe fecal retention Operation Performed: 1) Right subclavian Permacath. 2) Exploratory laparotomy. 3) Subtotal colectomy with ileostomy formation. Specimen/Specimens Removed: colon Estimated Blood Loss: EBL {In ML}: 150 Blood Products Given: PRBC (3 units) Drains Used: Roel (connected to previous PD catheter) Post-Op Condition: Poor Date of Surgery/Procedure: 03/27/17 Time of Surgery/Procedure: 22:33
[2017-03-27 23:09] LABS: BASO # 0.1 K/uL (0.0-0.2); BASO % 0.5 % (0.0-2.0); EOS % 0.1 % (0.0-4.0); HEMATOCRIT 34.5 % (34.0-47.0); LYMPH # 1.2 K/uL (1.0-4.3); LYMPH % 5.7 % (20.0-40.0); MEAN CORPUSCULAR HEMOGLOBIN 30.2 pg (27.0-31.0); MEAN CORPUSCULAR HGB CONC 33.2 g/dL (33.0-37.0); MEAN PLATELET VOLUME 7.9 fL (7.2-11.7); MONO # 1.3 K/uL (0.0-0.8); MONO % 6.2 % (0.0-10.0); PLATELET COUNT 184 K/uL (130-400); RED CELL DISTRIBUTION WIDTH 14.9 % (11.5-14.5); WHITE BLOOD COUNT 20.8 K/uL (4.8-10.8)
[2017-03-27 23:10] LABS: MEAN CELL VOLUME 90.8 fL (81.0-99.0)
[2017-03-27 23:18] LABS: POTASSIUM 4.7 mmol/L (3.6-5.2)
[2017-03-27 23:20] LABS: BILIRUBIN,TOTAL 1.5 mg/dL (0.2-1.3)
[2017-03-27 23:21] LABS: CALCIUM 8.1 mg/dl (8.6-10.4); PHOSPHOROUS 5.5 mg/dL (2.5-4.5); TOTAL PROTEIN 5.3 g/dL (6.3-8.3)
[2017-03-27 23:22] LABS: MAGNESIUM 1.9 mg/dL (1.6-2.3)
[2017-03-27 23:29] LABS: NEUTROPHIL 83 % (50-75); TOTAL CELLS COUNTED 100
[2017-03-27] MEDS: (Lantus) Insulin Glargine, Recombinant SC SCH (23:44)
[2017-03-28] MEDS: HYDROmorphone 0.5 mg/0.5 ml ISec IVP PRN ×5 (00:15→22:30)
[2017-03-28] MEDS: Mineral Oil Enema 135 ml RC SCH ×2 (00:17→00:18)
[2017-03-28] MEDS ORDERED: DiphenhydrAMINE 50 mg/ml Inj IVP STA (00:26)
[2017-03-28 06:39] LABS: BASO # 0.1 K/uL (0.0-0.2); BASO % 0.5 % (0.0-2.0); EOS % 0.1 % (0.0-4.0); HEMATOCRIT 30.6 % (34.0-47.0); LYMPH % 5.2 % (20.0-40.0); MEAN CELL VOLUME 89.8 fL (81.0-99.0); MEAN CORPUSCULAR HEMOGLOBIN 29.9 pg (27.0-31.0); MEAN CORPUSCULAR HGB CONC 33.3 g/dL (33.0-37.0); MONO # 1.3 K/uL (0.0-0.8); MONO % 6.7 % (0.0-10.0); PLATELET COUNT 170 K/uL (130-400); RED CELL DISTRIBUTION WIDTH 14.8 % (11.5-14.5); WHITE BLOOD COUNT 19.6 K/uL (4.8-10.8)
[2017-03-28 06:48] LABS: POTASSIUM 4.9 mmol/L (3.6-5.2)
[2017-03-28 06:50] LABS: ALB/GLOB RATIO 0.7 (1.0-2.1); BILIRUBIN,TOTAL 1.6 mg/dL (0.2-1.3); TOTAL PROTEIN 5.8 g/dL (6.3-8.3)
[2017-03-28 06:51] LABS: CALCIUM 8.3 mg/dl (8.6-10.4)
[2017-03-28] MEDS: (Novolin R) Insulin Human Regular 100 units/ml vial SC SCH ×4 (07:30→22:00)
--- NOTE | 2017-03-28 08:11 | CP.PCM.PN ---
<KARISHMA BLANKENSHIP - Last Filed: 03/28/17 08:21> Subjective - Date & Time of Evaluation Date of Evaluation: 03/28/17 Time of Evaluation: 07:00 - Subjective Subjective: Karishma Blankenship DO PGY1 - GI Progress Note for Dr. Torres Patient seen and examined at bedside. Last night, patient was taken for emergency exploratory laparotomy, PD catheter removal, subtotal colectomy and ileostomy, and R IJ portacath placement. This morning, patient reports decreased abdominal pain, distention, and bloating. She denies nausea and vomiting. She is complaining of mild pain in her abdomen, specifically of the ileostomy and in the LLQ, where there remains a stump of sigmoid. She is also complaining of pain in her right foot. Objective - Vital Signs/Intake and Output Vital Signs (last 24 hours): Temp Pulse Resp BP Pulse Ox 98.5 F 103 H 20 149/50 L 100 03/28/17 04:00 03/28/17 07:02 03/28/17 07:02 03/28/17 07:02 03/28/17 07:02 Intake and Output: 03/28/17 03/28/17 06:59 18:59 Intake Total 860 30 Output Total 210 Balance 650 30 - Medications Medications: Current Medications Acetaminophen (Tylenol 325mg Tab) 650 mg PO Q6 PRN PRN Reason: Pain, Mild (1-3) Last Admin: 03/27/17 16:24 Dose: 650 mg Amlodipine Besylate (Norvasc) 10 mg PO DAILY [facility] Last Admin: 03/27/17 10:41 Dose: 10 mg Benzocaine/Menthol (Cepacol Sore Throat) 1 poppy MT QID PRN PRN Reason: Sore Throat Carvedilol (Coreg) 12.5 mg PO BID [facility] Last Admin: 03/27/17 10:55 Dose: 12.5 mg Clopidogrel Bisulfate (Plavix) 75 mg PO DAILY [facility] Last Admin: 03/27/17 10:41 Dose: 75 mg Dextrose (Dextrose 50% Inj) 0 ml IV STAT PRN; Protocol PRN Reason: Hyglycemia Protocol Last Admin: 03/13/17 07:17 Dose: 25 ml Dextrose (Glutose 15) 0 gm PO ONCE PRN; Protocol PRN Reason: Hypoglycemia Protocol Last Admin: 03/26/17 07:17 Dose: 15 gm Docusate Sodium (Colace) 100 mg PO Q8 PRN PRN Reason: Constipation Epoetin Alec (Procrit) 10,000 unit SC MWF [facility] Last Admin: 03/27/17 11:42 Dose: 10,000 unit Hydromorphone HCl (Dilaudid) 0.5 mg IVP Q3 PRN PRN Reason: Pain, moderate (4-7) Last Admin: 03/28/17 07:00 Dose: 0.5 mg Meropenem 500 mg/ Sodium (Chloride) 100 mls @ 100 mls/hr IVPB Q24H [facility] Last Admin: 03/27/17 10:40 Dose: 100 mls/hr Dextrose/Sodium Chloride (Dextrose 5%/0.45% Ns 1000 Ml) 1,000 mls @ 70 mls/hr IV .[id number] [facility] Last Admin: 03/27/17 14:16 Dose: Not Given Sodium Chloride (Sodium Chloride 0.9%) 1,000 mls @ 30 mls/hr IV .Q24H [facility] Last Admin: 03/27/17 23:53 Dose: 30 mls/hr Insulin Glargine (Lantus) 10 unit SC HS [facility] Last Admin: 03/27/17 23:44 Dose: Not Given Insulin Human Regular (Novolin R) 0 unit SC [facility] PRN Reason: Protocol Last Admin: 03/27/17 23:44 Dose: Not Given Lactulose (Enulose) 20 gm PO DAILY PRN PRN Reason: Constipation Last Admin: 03/27/17 11:43 Dose: 20 gm Linezolid (Zyvox) 600 mg PO Q12 [facility] Last Admin: 03/28/17 02:14 Dose: Not Given Losartan Potassium (Cozaar) 100 mg PO DAILY@1800 [facility] Last Admin: 03/26/17 18:01 Dose: Not Given Ondansetron HCl (Zofran Inj) 4 mg IVP Q4 PRN PRN Reason: Nausea/Vomiting - Labs Labs: 03/28/17 06:28 03/28/17 06:28 PT 11.7 SECONDS (9.7-12.2) 03/13/17 08:31 INR 1.0 03/13/17 08:31 APTT 41 SECONDS (21-34) H 03/13/17 08:31 - Constitutional Appears: Non-toxic, No Acute Distress - Head Exam Head Exam: ATRAUMATIC, NORMOCEPHALIC - Eye Exam Eye Exam: EOMI, Normal appearance - ENT Exam ENT Exam: Mucous Membranes Moist - Neck Exam Neck Exam: Normal Inspection - Respiratory Exam Respiratory Exam: Clear to Ausculation Bilateral, NORMAL BREATHING PATTERN - Cardiovascular Exam Cardiovascular Exam: RRR, +S4 - GI/Abdominal Exam GI & Abdominal Exam: Soft, Tenderness (mild), Hypoactive Bowel Sounds. absent: Distended, Firm, Guarding, Rigid Additional comments: Central Abd pad covering laparotomy incision Ileostomy appears intact, draining dark red-brown fluid, no purulence, no erythema, mild tenderness - Extremities Exam Extremities Exam: absent: Calf Tenderness, Pedal Edema - Neurological Exam Neurological Exam: Alert, Awake, Oriented x3 - Psychiatric Exam Psychiatric exam: Normal Affect, Normal Mood - Skin Skin Exam: Dry, Intact Assessment and Plan - Assessment and Plan (Free Text) Assessment: 51 yo F with PMH of DM, HTN, PVD, hypercholesterolemia, anemia, and ESRD on PD since 2014. Admitted to the hospital for right foot gangrene now s/p partial amputation. Consulted for abdominal distention/pain, pneumotosis intestinalis, peritonitis. She is now s/p exploratory laparotomy and subtotal colectomy and ileostomy. Plan: 1. Constipation, acute on chronic - Patient reports 2 weeks with no BM until yesterday evening after receiving an enema, which resulted in a small, hard, painful, bloody BM - CT abdomen showed very large amount of stool in ascending, transverse, and proximal descending colon, as well as pneumatosis of the ascending and transverse colon and free peritoneal air - Likely multifactorial, 2/2 prolonged hospital stay with prolonged use of opiates; cannot rule out obstruction or pseudoobstruction at this time, no obvious mass or obstructing lesion noted on CT, though distinct caliber change indicates possibility of obstruction - Rectal exam showed soft brown stool in the rectal vault, with no apparent impaction - Now s/p subtotal colectomy and ileostomy - Discontinue enemas; when patient is tolerating PO again, resume bowel regimen , preferably with colace and miralax - Avoid narcotics if possible - Currently NPO; surgery following, appreciate recs 2. Peritonitis - Patient has had PD catheter since 2014 - Peritoneal fluid significant for PMN of 274; currently tachycardic, oral temp 100.3, with leukocytosis - Peritoneal signs on exam - CT abdomen showed free air, possibly 2/2 PD catheter - Now s/p removal of PD catheter and placement of R IJ portacath; no longer exhibiting signs of peritonitis; afebrile, leukocytosis downtrending - Continue IV Abx - ID on consult, kenyatta recs 3. ESRD on PD - Patient was on intermittent peritoneal dialysis with home equipment - s/p removal of PD catheter and placement of R IJ portacath, as above - Nephrology on consult, appreciate recs Patient seen, discussed, and reviewed with attending <Chava Torres - Last Filed: 03/28/17 10:43> Objective - Vital Signs/Intake and Output Vital Signs (last 24 hours): Temp Pulse Resp BP Pulse Ox 98.5 F 103 H 20 149/50 L 100 03/28/17 04:00 03/28/17 07:02 03/28/17 07:02 03/28/17 07:02 03/28/17 07:02 Intake and Output: 03/28/17 03/28/17 06:59 18:59 Intake Total 860 30 Output Total 210 Balance 650 30 - Medications Medications: Current Medications Acetaminophen (Tylenol 325mg Tab) 650 mg PO Q6 PRN PRN Reason: Pain, Mild (1-3) Last Admin: 03/27/17 16:24 Dose: 650 mg Benzocaine/Menthol (Cepacol Sore Throat) 1 poppy MT QID PRN PRN Reason: Sore Throat Dextrose (Dextrose 50% Inj) 0 ml IV STAT PRN; Protocol PRN Reason: Hyglycemia Protocol Last Admin: 03/13/17 07:17 Dose: 25 ml Dextrose (Glutose 15) 0 gm PO ONCE PRN; Protocol PRN Reason: Hypoglycemia Protocol Last Admin: 03/26/17 07:17 Dose: 15 gm Epoetin Alec (Procrit) 10,000 unit SC MWF [facility] Last Admin: 03/27/17 11:42 Dose: 10,000 unit Heparin Sodium (Porcine) (Heparin) 5,000 units SC Q12H [facility] Hydromorphone HCl (Dilaudid) 1 mg IVP Q3 PRN PRN Reason: Pain, moderate (4-7) Meropenem 500 mg/ Sodium (Chloride) 100 mls @ 100 mls/hr IVPB Q24H [facility] Last Admin: 03/27/17 10:40 Dose: 100 mls/hr Sodium Chloride (Sodium Chloride 0.9%) 1,000 mls @ 60 mls/hr IV .[id number] [facility] Insulin Glargine (Lantus) 10 unit SC HS [facility] Last Admin: 03/27/17 23:44 Dose: Not Given Insulin Human Regular (Novolin R) 0 unit SC ACHS [facility] PRN Reason: Protocol Last Admin: 03/27/17 23:44 Dose: Not Given Linezolid (Zyvox) 600 mg PO Q12 [facility] Last Admin: 03/28/17 02:14 Dose: Not Given Ondansetron HCl (Zofran Inj) 4 mg IVP Q4 PRN PRN Reason: Nausea/Vomiting - Labs Labs: 03/28/17 06:28 03/28/17 06:28 PT 11.7 SECONDS (9.7-12.2) 03/13/17 08:31 INR 1.0 03/13/17 08:31 APTT 41 SECONDS (21-34) H 03/13/17 08:31 Attending/Attestation - Attestation I have personally seen and examined this patient.: Yes I have fully participated in the care of the patient.: Yes I have reviewed all pertinent clinical information, including history, physical exam and plan: Yes Notes (Text): 03/28/17 10:38 I have seen and examined patient with GI fellow and medical record librarians teacher. No acute events overnight, she is s/p subtotal colectomy performed yesterday. She currently has NGT in place, abdominal pain has improved. No reported nausea, vomiting, fever/chills. Review of vitals from today shows tachycardia. DM / HTN PVD ESRD on PD Lower extremity gangrene Constipation, pneumatosis, peritonitis - s/p subtotal colectomy yesterday - NPO - Continue with antibiotic therapy - Follow up surgical recommendations - Patient will eventually require outpatient endoscopic evaluation following resolution of acute events - No further planned GI intervention, will sign off case. Please reconsult as necessary, thank you.
--- NOTE | 2017-03-28 08:38 | OP ---
PROCEDURE DATE: 03/27/2017 PREOPERATIVE DIAGNOSIS: Intestinal obstruction secondary to fecal stasis in colon. PROCEDURE CARRIED OUT: Subtotal colectomy, insertion of Perm-A-Cath, right subclavian vein with C-arm fluoroscopy, ultrasound-guided puncture and micropuncture technique. SURGEON: Harman Clark Jr., MD LABEL REMOVER: Dr. Chin. ANESTHESIA ADMINISTERED BY: Dr. Aldrich. A 51-year-old woman scheduled to have amputation of the leg as well as fecal stasis, not responding to any other measures. The bowel became stuck and nothing would alleviate this, she will have vomiting and toxicity because of that she was . OPERATIVE FINDINGS: There is no perforation. There were adhesions throughout the abdomen. DESCRIPTION OF PROCEDURE: The peritoneal dialysis catheter is in the appropriate location and the peritoneal dialysis catheter was left as a drain in the pelvis. We mobilized the colon, divided with the use of cautery devices and then removed the colon from the cecum or lay down to the sigmoid colon. The ileum was then brought as an ileostomy in the right lower quadrant and matured on the table with a Nel technique to provide for an adequate nipple. The abdomen was closed with running sutures of Novafil and PDS. Appropriate irrigation were taken out. Blood loss was approximately 400 mL. Operation carried out, subtotal colectomy and insertion of Perm-A-Cath right subclavian vein for hemodialysis. Harman Clark Jr., MD
[2017-03-28 08:49] LABS: NEUTROPHIL 87 % (50-75); NUCLEATED RED BLOOD CELL 1 % (0-0); TOTAL CELLS COUNTED 100
[2017-03-28 08:50] LABS: LARGE PLATELETS PRESENT
--- NOTE | 2017-03-28 09:07 | CP.CCUPN ---
<Alessandro Munoz - Last Filed: 03/28/17 17:01> CCU Objective - Vital Signs / Intake & Output Vital Signs (Last 4 hours): Vital Signs Pulse Pulse Resp BP BP Pulse Ox 03/28/17 15:00 97 H 19 151/55 H 100 03/28/17 14:00 98 H 100 H 18 128/53 L 114/52 L 100 03/28/17 13:30 96 H 15 106/48 L 100 Intake and Output (Last 8hrs): Intake & Output 03/28/17 03/28/17 03/28/17 06:59 14:59 22:59 Intake Total 210 330 60 Output Total 210 Balance 0 330 60 Intake: Intake, IV Amount 210 330 60 Right PICC 210 330 60 Oral 0 0 Output: Drainage 210 Ileostomy 125 Left Abdomen 60 Right Foot 25 Urine 0 Urine, Voided 0 - Medications Active Medications: Active Medications Generic Name Dose Route Start Last Admin Trade Name Freq PRN Reason Stop Dose Admin Acetaminophen 650 mg 03/09/17 20:48 03/27/17 16:24 Tylenol 325mg Tab PO 650 mg Q6 PRN Administration Pain, Mild (1-3) Benzocaine/Menthol 1 poppy 03/27/17 16:19 Cepacol Sore Throat MT QID PRN Sore Throat Dextrose 0 ml 03/13/17 07:03 03/13/17 07:17 Dextrose 50% Inj IV 25 ml STAT PRN Administration Hyglycemia Protocol Protocol Dextrose 0 gm 03/13/17 07:03 03/26/17 07:17 Glutose 15 PO 15 gm ONCE PRN Administration Hypoglycemia Protocol Protocol Epoetin Alec 10,000 unit 03/13/17 09:00 03/27/17 11:42 Procrit SC 10,000 unit MWF GUILLERMO Administration Heparin Sodium (Porcine) 5,000 units 03/28/17 10:30 03/28/17 15:08 Heparin SC 5,000 units Q12H GUILLERMO Administration Hydromorphone HCl 1 mg 03/28/17 10:09 03/28/17 10:43 Dilaudid IVP 1 mg Q3 PRN Administration Pain, moderate (4-7) Meropenem 500 mg/ Sodium 100 mls @ 100 mls/hr 03/12/17 10:00 03/28/17 15:08 Chloride IVPB 100 mls/hr Q24H GUILLERMO Administration Sodium Chloride 1,000 mls @ 60 mls/hr 03/28/17 10:30 03/28/17 15:14 Sodium Chloride 0.9% IV Not Given .[id number] GUILLERMO Linezolid 600 mg in 300 mls @ 200 mls/hr 03/28/17 22:00 Zyvox 600mg/300ml D5w IVPB Q12 GUILLERMO Insulin Glargine 10 unit 03/13/17 22:15 03/27/17 23:44 Lantus SC Not Given HS GUILLERMO Insulin Human Regular 0 unit 03/20/17 16:30 03/28/17 11:30 Novolin R SC Not Given ACHS [facility] Protocol Ondansetron HCl 4 mg 03/27/17 22:36 Zofran Inj IVP Q4 PRN Nausea/Vomiting - Patient Studies Lab Studies: Lab Studies 03/28/17 03/28/17 03/28/17 Range/Units 16:22 12:47 12:47 WBC (4.8-10.8) K/uL RBC (3.80-5.20) Mil/uL Hgb (11.0-16.0) g/dL Hct (34.0-47.0) % MCV (81.0-99.0) fL MCH (27.0-31.0) pg MCHC (33.0-37.0) g/dL RDW (11.5-14.5) % Plt Count (130-400) K/uL MPV (7.2-11.7) fL Neut % (Auto) (50.0-75.0) % Lymph % (Auto) (20.0-40.0) % Roane % (Auto) (0.0-10.0) % Eos % (Auto) (0.0-4.0) % Baso % (Auto) (0.0-2.0) % Neut # (1.8-7.0) K/uL Lymph # (1.0-4.3) K/uL Roane # (0.0-0.8) K/uL Eos # (0.0-0.7) K/uL Baso # (0.0-0.2) K/uL Neutrophils % (Manual) (50-75) % Band Neutrophils % (0-2) % Lymphocytes % (Manual) (20-40) % Monocytes % (Manual) (0-10) % Nucleated RBC % (0-0) % Platelet Estimate (NORMAL) Large Platelets Hypochromasia (manual) Poikilocytosis (manual Anisocytosis (manual) Target Cells Constantine Cells Sodium (132-148) mmol/L Potassium (3.6-5.2) mmol/L Chloride (98-107) mmol/L Carbon Dioxide (22-30) mmol/L Anion Gap (10-20) BUN (7-17) mg/dL Creatinine (0.7-1.2) mg/dL Est GFR ( Amer) Est GFR (Non-Af Amer) POC Glucose (mg/dL) 80 (65-110) mg/dL Random Glucose (65-105) mg/dL Lactic Acid (0.7-2.1) mmol/L Calcium (8.6-10.4) mg/dl Phosphorus (2.5-4.5) mg/dL Magnesium (1.6-2.3) mg/dL Total Bilirubin (0.2-1.3) mg/dL AST (14-36) U/L ALT (9-52) U/L Alkaline Phosphatase (38-126) U/L Total Protein (6.3-8.3) g/dL Albumin (3.5-5.0) g/dL Globulin (2.2-3.9) gm/dL Albumin/Globulin Ratio (1.0-2.1) Beta HCG, Quant mIU/ML Hep Bs Antigen Negative (NEGATIVE) Hep Bs Antibody Positive (NEGATIVE) Hep B Core IgM Ab Negative (NEGATIVE) Hepatitis C Antibody Negative (NEGATIVE) Blood Type Antibody Screen 03/28/17 03/28/17 03/28/17 Range/Units 11:46 06:28 06:28 WBC 19.6 H (4.8-10.8) K/uL RBC 3.41 L (3.80-5.20) Mil/uL Hgb 10.2 L (11.0-16.0) g/dL Hct 30.6 L (34.0-47.0) % MCV 89.8 (81.0-99.0) fL MCH 29.9 (27.0-31.0) pg MCHC 33.3 (33.0-37.0) g/dL RDW 14.8 H (11.5-14.5) % Plt Count 170 (130-400) K/uL MPV 8.0 (7.2-11.7) fL Neut % (Auto) 87.5 H (50.0-75.0) % Lymph % (Auto) 5.2 L (20.0-40.0) % Ro[place] % (Auto) 6.7 (0.0-10.0) % Eos % (Auto) 0.1 (0.0-4.0) % Baso % (Auto) 0.5 (0.0-2.0) % Neut # 17.2 H (1.8-7.0) K/uL Lymph # 1.0 (1.0-4.3) K/uL Roane # 1.3 H (0.0-0.8) K/uL Eos # 0.0 (0.0-0.7) K/uL Baso # 0.1 (0.0-0.2) K/uL Neutrophils % (Manual) 87 H (50-75) % Band Neutrophils % 4 H (0-2) % Lymphocytes % (Manual) 4 L (20-40) % Monocytes % (Manual) 5 (0-10) % Nucleated RBC % 1 H (0-0) % Platelet Estimate Normal (NORMAL) Large Platelets Present Hypochromasia (manual) Slight Poikilocytosis (manual Slight Anisocytosis (manual) Slight Target Cells Slight Constantine Cells Slight Sodium 131 L (132-148) mmol/L Potassium 4.9 (3.6-5.2) mmol/L Chloride 94 L (98-107) mmol/L Carbon Dioxide 22 (22-30) mmol/L Anion Gap 20 (10-20) BUN 70 H (7-17) mg/dL Creatinine 11.6 H* (0.7-1.2) mg/dL Est GFR ( Amer) 4 Est GFR (Non-Af Amer) 3 POC Glucose (mg/dL) 110 (65-110) mg/dL Random Glucose 131 H (65-105) mg/dL Lactic Acid (0.7-2.1) mmol/L Calcium 8.3 L (8.6-10.4) mg/dl Phosphorus (2.5-4.5) mg/dL Magnesium (1.6-2.3) mg/dL Total Bilirubin 1.6 H (0.2-1.3) mg/dL AST 32 (14-36) U/L ALT 37 (9-52) U/L Alkaline Phosphatase 68 (38-126) U/L Total Protein 5.8 L (6.3-8.3) g/dL Albumin 2.3 L (3.5-5.0) g/dL Globulin 3.4 (2.2-3.9) gm/dL Albumin/Globulin Ratio 0.7 L (1.0-2.1) Beta HCG, Quant mIU/ML Hep Bs Antigen (NEGATIVE) Hep Bs Antibody (NEGATIVE) Hep B Core IgM Ab (NEGATIVE) Hepatitis C Antibody (NEGATIVE) Blood Type Antibody Screen 03/27/17 03/27/17 03/27/17 Range/Units 23:07 23:07 23:05 WBC 20.8 H (4.8-10.8) K/uL RBC 3.80 (3.80-5.20) Mil/uL Hgb 11.5 D (11.0-16.0) g/dL Hct 34.5 (34.0-47.0) % MCV 90.8 D (81.0-99.0) fL MCH 30.2 (27.0-31.0) pg MCHC 33.2 (33.0-37.0) g/dL RDW 14.9 H (11.5-14.5) % Plt Count 184 (130-400) K/uL MPV 7.9 (7.2-11.7) fL Neut % (Auto) 87.5 H (50.0-75.0) % Lymph % (Auto) 5.7 L (20.0-40.0) % [place] % (Auto) 6.2 (0.0-10.0) % Eos % (Auto) 0.1 (0.0-4.0) % Baso % (Auto) 0.5 (0.0-2.0) % Neut # 18.1 H (1.8-7.0) K/uL Lymph # 1.2 (1.0-4.3) K/uL Ro[place] # 1.3 H (0.0-0.8) K/uL Eos # 0.0 (0.0-0.7) K/uL Baso # 0.1 (0.0-0.2) K/uL Neutrophils % (Manual) 83 H (50-75) % Band Neutrophils % 3 H (0-2) % Lymphocytes % (Manual) 11 L (20-40) % Monocytes % (Manual) 3 (0-10) % Nucleated RBC % (0-0) % Platelet Estimate Normal (NORMAL) Large Platelets Hypochromasia (manual) Slight Poikilocytosis (manual Slight Anisocytosis (manual) Slight Target Cells Constantine Cells Sodium 128 L (132-148) mmol/L Potassium 4.7 (3.6-5.2) mmol/L Chloride 93 L (98-107) mmol/L Carbon Dioxide 24 (22-30) mmol/L Anion Gap 17 (10-20) BUN 68 H (7-17) mg/dL Creatinine 10.8 H* (0.7-1.2) mg/dL Est GFR ( Amer) 5 Est GFR (Non-Af Amer) 4 POC Glucose (mg/dL) 143 H (65-110) mg/dL Random Glucose 117 H (65-105) mg/dL Lactic Acid (0.7-2.1) mmol/L Calcium 8.1 L (8.6-10.4) mg/dl Phosphorus 5.5 H (2.5-4.5) mg/dL Magnesium 1.9 (1.6-2.3) mg/dL Total Bilirubin 1.5 H (0.2-1.3) mg/dL AST 59 H D (14-36) U/L ALT 34 (9-52) U/L Alkaline Phosphatase 76 (38-126) U/L Total Protein 5.3 L (6.3-8.3) g/dL Albumin 2.6 L (3.5-5.0) g/dL Globulin 2.6 (2.2-3.9) gm/dL Albumin/Globulin Ratio 1.0 (1.0-2.1) Beta HCG, Quant mIU/ML Hep Bs Antigen (NEGATIVE) Hep Bs Antibody (NEGATIVE) Hep B Core IgM Ab (NEGATIVE) Hepatitis C Antibody (NEGATIVE) Blood Type Antibody Screen 03/27/17 03/27/17 03/27/17 Range/Units 18:20 17:13 17:13 WBC (4.8-10.8) K/uL RBC (3.80-5.20) Mil/uL Hgb (11.0-16.0) g/dL Hct (34.0-47.0) % MCV (81.0-99.0) fL MCH (27.0-31.0) pg MCHC (33.0-37.0) g/dL RDW (11.5-14.5) % Plt Count (130-400) K/uL MPV (7.2-11.7) fL Neut % (Auto) (50.0-75.0) % Lymph % (Auto) (20.0-40.0) % [place] % (Auto) (0.0-10.0) % Eos % (Auto) (0.0-4.0) % Baso % (Auto) (0.0-2.0) % Neut # (1.8-7.0) K/uL Lymph # (1.0-4.3) K/uL Ro[place] # (0.0-0.8) K/uL Eos # (0.0-0.7) K/uL Baso # (0.0-0.2) K/uL Neutrophils % (Manual) (50-75) % Band Neutrophils % (0-2) % Lymphocytes % (Manual) (20-40) % Monocytes % (Manual) (0-10) % Nucleated RBC % (0-0) % Platelet Estimate (NORMAL) Large Platelets Hypochromasia (manual) Poikilocytosis (manual Anisocytosis (manual) Target Cells Nell Cells Sodium (132-148) mmol/L Potassium (3.6-5.2) mmol/L Chloride (98-107) mmol/L Carbon Dioxide (22-30) mmol/L Anion Gap (10-20) BUN (7-17) mg/dL Creatinine (0.7-1.2) mg/dL Est GFR ( Amer) Est GFR (Non-Af Amer) POC Glucose (mg/dL) (65-110) mg/dL Random Glucose (65-105) mg/dL Lactic Acid 1.2 (0.7-2.1) mmol/L Calcium (8.6-10.4) mg/dl Phosphorus (2.5-4.5) mg/dL Magnesium (1.6-2.3) mg/dL Total Bilirubin (0.2-1.3) mg/dL AST (14-36) U/L ALT (9-52) U/L Alkaline Phosphatase (38-126) U/L Total Protein (6.3-8.3) g/dL Albumin (3.5-5.0) g/dL Globulin (2.2-3.9) gm/dL Albumin/Globulin Ratio (1.0-2.1) Beta HCG, Quant < 2.39 mIU/ML Hep Bs Antigen (NEGATIVE) Hep Bs Antibody (NEGATIVE) Hep B Core IgM Ab (NEGATIVE) Hepatitis C Antibody (NEGATIVE) Blood Type O POSITIVE Antibody Screen Negative Laboratory Results - last 24 hr 03/27/17 03/27/17 03/27/17 17:13 17:13 18:20 WBC RBC Hgb Hct MCV MCH MCHC RDW Plt Count MPV Neut % (Auto) Lymph % (Auto) [place] % (Auto) Eos % (Auto) Baso % (Auto) Neut # Lymph # Ro[place] # Eos # Baso # Neutrophils % (Manual) Band Neutrophils % Lymphocytes % (Manual) Monocytes % (Manual) Nucleated RBC % Platelet Estimate Large Platelets Hypochromasia (manual) Poikilocytosis (manual Anisocytosis (manual) Target Cells Nell Cells Sodium Potassium Chloride Carbon Dioxide Anion Gap BUN Creatinine Est GFR ( Amer) Est GFR (Non-Af Amer) POC Glucose (mg/dL) Random Glucose Lactic Acid 1.2 Calcium Phosphorus Magnesium Total Bilirubin AST ALT Alkaline Phosphatase Total Protein Albumin Globulin Albumin/Globulin Ratio Beta HCG, Quant < 2.39 Hep Bs Antigen Hep Bs Antibody Hep B Core IgM Ab Hepatitis C Antibody Blood Type O POSITIVE Antibody Screen Negative 03/27/17 03/27/17 03/27/17 23:05 23:07 23:07 WBC 20.8 H RBC 3.80 Hgb 11.5 D Hct 34.5 MCV 90.8 D MCH 30.2 MCHC 33.2 RDW 14.9 H Plt Count 184 MPV 7.9 Neut % (Auto) 87.5 H Lymph % (Auto) 5.7 L [place] % (Auto) 6.2 Eos % (Auto) 0.1 Baso % (Auto) 0.5 Neut # 18.1 H Lymph # 1.2 Roane # 1.3 H Eos # 0.0 Baso # 0.1 Neutrophils % (Manual) 83 H Band Neutrophils % 3 H Lymphocytes % (Manual) 11 L Monocytes % (Manual) 3 Nucleated RBC % Platelet Estimate Normal Large Platelets Hypochromasia (manual) Slight Poikilocytosis (manual Slight Anisocytosis (manual) Slight Target Cells Nell Cells Sodium 128 L Potassium 4.7 Chloride 93 L Carbon Dioxide 24 Anion Gap 17 BUN 68 H Creatinine 10.8 H* Est GFR ( Amer) 5 Est GFR (Non-Af Amer) 4 POC Glucose (mg/dL) 143 H Random Glucose 117 H Lactic Acid Calcium 8.1 L Phosphorus 5.5 H Magnesium 1.9 Total Bilirubin 1.5 H AST 59 H D ALT 34 Alkaline Phosphatase 76 Total Protein 5.3 L Albumin 2.6 L Globulin 2.6 Albumin/Globulin Ratio 1.0 Beta HCG, Quant Hep Bs Antigen Hep Bs Antibody Hep B Core IgM Ab Hepatitis C Antibody Blood Type Antibody Screen 03/28/17 03/28/17 03/28/17 06:28 06:28 11:46 WBC 19.6 H RBC 3.41 L Hgb 10.2 L Hct 30.6 L MCV 89.8 MCH 29.9 MCHC 33.3 RDW 14.8 H Plt Count 170 MPV 8.0 Neut % (Auto) 87.5 H Lymph % (Auto) 5.2 L [place] % (Auto) 6.7 Eos % (Auto) 0.1 Baso % (Auto) 0.5 Neut # 17.2 H Lymph # 1.0 Ro[place] # 1.3 H Eos # 0.0 Baso # 0.1 Neutrophils % (Manual) 87 H Band Neutrophils % 4 H Lymphocytes % (Manual) 4 L Monocytes % (Manual) 5 Nucleated RBC % 1 H Platelet Estimate Normal Large Platelets Present Hypochromasia (manual) Slight Poikilocytosis (manual Slight Anisocytosis (manual) Slight Target Cells Slight Nell Cells Slight Sodium 131 L Potassium 4.9 Chloride 94 L Carbon Dioxide 22 Anion Gap 20 BUN 70 H Creatinine 11.6 H* Est GFR ( Amer) 4 Est GFR (Non-Af Amer) 3 POC Glucose (mg/dL) 110 Random Glucose 131 H Lactic Acid Calcium 8.3 L Phosphorus Magnesium Total Bilirubin 1.6 H AST 32 ALT 37 Alkaline Phosphatase 68 Total Protein 5.8 L Albumin 2.3 L Globulin 3.4 Albumin/Globulin Ratio 0.7 L Beta HCG, Quant Hep Bs Antigen Hep Bs Antibody Hep B Core IgM Ab Hepatitis C Antibody Blood Type Antibody Screen 03/28/17 03/28/17 03/28/17 12:47 12:47 16:22 WBC RBC Hgb Hct MCV MCH MCHC RDW Plt Count MPV Neut % (Auto) Lymph % (Auto) [place] % (Auto) Eos % (Auto) Baso % (Auto) Neut # Lymph # [place] # Eos # Baso # Neutrophils % (Manual) Band Neutrophils % Lymphocytes % (Manual) Monocytes % (Manual) Nucleated RBC % Platelet Estimate Large Platelets Hypochromasia (manual) Poikilocytosis (manual Anisocytosis (manual) Target Cells Constantine Cells Sodium Potassium Chloride Carbon Dioxide Anion Gap BUN Creatinine Est GFR ( Amer) Est GFR (Non-Af Amer) POC Glucose (mg/dL) 80 Random Glucose Lactic Acid Calcium Phosphorus Magnesium Total Bilirubin AST ALT Alkaline Phosphatase Total Protein Albumin Globulin Albumin/Globulin Ratio Beta HCG, Quant Hep Bs Antigen Negative Hep Bs Antibody Positive Hep B Core IgM Ab Negative Hepatitis C Antibody Negative Blood Type Antibody Screen Critical Care Progress Note - Nutrition Nutrition: Nutrition Category Date Time Status Liquid Diet [DIET] Diets 03/28/17 Dinner Active Attending/Attestation - Attestation I have personally seen and examined this patient.: Yes I have fully participated in the care of the patient.: Yes I have reviewed all pertinent clinical information: Yes Notes (Text): 03/28/17 17:01 I have seen and examined the patient. Medical records, lab studies, and imaging were reviewed by me and a management plan was formulated on multidisciplinary rounds with resident Dr. Garcia. I agree with their documented assessment and plan. Patient is recovering well s/p subtotal colectomy. Continue Meropenem and Zyvox. NPO for now. NS@60. Critical Care Time 35 minutes. Multi-disciplinary rounds were performed with house staff, nursing, speech therapy, respiratory therapy, pharmacy and nutrition with integrated input from the primary team/attending and other consulting services. The documented time is cumulative and includes review of patient data/exams/labs/chart review and examination of the patient on rounds and throughout the day; time is exclusive of any procedures or teaching time. <Audrey Garcia - Last Filed: 03/28/17 19:38> CCU Subjective - Physician Review Subjective (Free Text): Patient seen and examined at bedside and in no acute distress. Patient admits to abdominal pain over the incision site. Patient has no passed flatus or had a bowel movement. Patient denies shortness of breath, chest pain, nausea or vomiting. 03/28/17 19:32 CCU Objective - Vital Signs / Intake & Output Vital Signs (Last 4 hours): Vital Signs Pulse Resp BP Pulse Ox 03/28/17 07:02 103 H 20 149/50 L 100 03/28/17 06:01 104 H 16 131/57 L 99 Intake and Output (Last 8hrs): Intake & Output 03/27/17 03/28/17 03/28/17 22:59 06:59 14:59 Intake Total 975 210 30 Output Total 210 Balance 975 0 30 Intake: Intake, IV Amount 210 30 Right PICC 210 30 Oral 0 0 Blood Product 975 Output: Drainage 210 Ileostomy 125 Left Abdomen 60 Right Foot 25 Urine 0 Urine, Voided 0 - Physical Exam Head: Positive for: Atraumatic, Normocephalic Respiratory/Chest: Positive for: Good Air Exchange. Negative for: Respiratory Distress, Accessory Muscle Use Cardiovascular: Positive for: Normal S1, S2 Abdomen: Positive for: Tenderness (appropriate s/p surgery), Distention Lower Extremity: Negative for: Normal Inspection (right foot amputation, necrotic wound wrapped in d/c/i dressing) Neurological: Positive for: GCS=15 Skin: Positive for: Warm Psychiatric: Positive for: Alert, Oriented x 3 - Medications Active Medications: Active Medications Generic Name Dose Route Start Last Admin Trade Name Freq PRN Reason Stop Dose Admin Acetaminophen 650 mg 03/09/17 20:48 03/27/17 16:24 Tylenol 325mg Tab PO 650 mg Q6 PRN Administration Pain, Mild (1-3) Amlodipine Besylate 10 mg 02/05/17 10:00 03/27/17 10:41 Norvasc PO 10 mg DAILY GUILLERMO Administration Benzocaine/Menthol 1 poppy 03/27/17 16:19 Cepacol Sore Throat MT QID PRN Sore Throat Carvedilol 12.5 mg 02/05/17 10:00 03/27/17 10:55 Coreg PO 12.5 mg BID GUILLERMO Administration Clopidogrel Bisulfate 75 mg 02/24/17 11:00 03/27/17 10:41 Plavix PO 75 mg DAILY GUILLERMO Administration Dextrose 0 ml 03/13/17 07:03 03/13/17 07:17 Dextrose 50% Inj IV 25 ml STAT PRN Administration Hyglycemia Protocol Protocol Dextrose 0 gm 03/13/17 07:03 03/26/17 07:17 Glutose 15 PO 15 gm ONCE PRN Administration Hypoglycemia Protocol Protocol Docusate Sodium 100 mg 03/24/17 18:15 Colace PO Q8 PRN Constipation Epoetin Alec 10,000 unit 03/13/17 09:00 03/27/17 11:42 Procrit SC 10,000 unit MWF GUILLERMO Administration Hydromorphone HCl 0.5 mg 03/27/17 22:37 03/28/17 07:00 Dilaudid IVP 0.5 mg Q3 PRN Administration Pain, moderate (4-7) Meropenem 500 mg/ Sodium 100 mls @ 100 mls/hr 03/12/17 10:00 03/27/17 10:40 Chloride IVPB 100 mls/hr Q24H GUILLERMO Administration Dextrose/Sodium Chloride 1,000 mls @ 70 mls/hr 03/26/17 09:30 03/27/17 14:16 Dextrose 5%/0.45% Ns 1000 Ml IV Not Given .[id number] GUILLERMO Sodium Chloride 1,000 mls @ 30 mls/hr 03/27/17 23:47 03/27/17 23:53 Sodium Chloride 0.9% IV 30 mls/hr .Q24H GUILLERMO Administration Insulin Glargine 10 unit 03/13/17 22:15 03/27/17 23:44 Lantus SC Not Given HS GUILLERMO Insulin Human Regular 0 unit 03/20/17 16:30 03/27/17 23:44 Novolin R SC Not Given ACHS [facility] Protocol Lactulose 20 gm 03/19/17 12:37 03/27/17 11:43 Enulose PO 20 gm DAILY PRN Administration Constipation Linezolid 600 mg 02/23/17 10:00 03/28/17 02:14 Zyvox PO Not Given Q12 [facility] Losartan Potassium 100 mg 02/05/17 18:00 03/28/17 08:44 Cozaar PO Not Given DAILY@1800 [facility] Ondansetron HCl 4 mg 03/27/17 22:36 Zofran Inj IVP Q4 PRN Nausea/Vomiting - Patient Studies Lab Studies: Lab Studies 03/28/17 03/28/17 03/27/17 Range/Units 06:28 06:28 23:07 WBC 19.6 H (4.8-10.8) K/uL RBC 3.41 L (3.80-5.20) Mil/uL Hgb 10.2 L (11.0-16.0) g/dL Hct 30.6 L (34.0-47.0) % MCV 89.8 (81.0-99.0) fL MCH 29.9 (27.0-31.0) pg MCHC 33.3 (33.0-37.0) g/dL RDW 14.8 H (11.5-14.5) % Plt Count 170 (130-400) K/uL MPV 8.0 (7.2-11.7) fL Neut % (Auto) 87.5 H (50.0-75.0) % Lymph % (Auto) 5.2 L (20.0-40.0) % [place] % (Auto) 6.7 (0.0-10.0) % Eos % (Auto) 0.1 (0.0-4.0) % Baso % (Auto) 0.5 (0.0-2.0) % Neut # 17.2 H (1.8-7.0) K/uL Lymph # 1.0 (1.0-4.3) K/uL [place] # 1.3 H (0.0-0.8) K/uL Eos # 0.0 (0.0-0.7) K/uL Baso # 0.1 (0.0-0.2) K/uL Neutrophils % (Manual) 87 H (50-75) % Band Neutrophils % 4 H (0-2) % Lymphocytes % (Manual) 4 L (20-40) % Monocytes % (Manual) 5 (0-10) % Nucleated RBC % 1 H (0-0) % Platelet Estimate Normal (NORMAL) Large Platelets Present Hypochromasia (manual) Slight Poikilocytosis (manual Slight Anisocytosis (manual) Slight Microcytosis (manual) Target Cells Slight Nell Cells Slight Sodium 131 L 128 L (132-148) mmol/L Potassium 4.9 4.7 (3.6-5.2) mmol/L Chloride 94 L 93 L (98-107) mmol/L Carbon Dioxide 22 24 (22-30) mmol/L Anion Gap 20 17 (10-20) BUN 70 H 68 H (7-17) mg/dL Creatinine 11.6 H* 10.8 H* (0.7-1.2) mg/dL Est GFR ( Amer) 4 5 Est GFR (Non-Af Amer) 3 4 POC Glucose (mg/dL) (65-110) mg/dL Random Glucose 131 H 117 H (65-105) mg/dL Lactic Acid (0.7-2.1) mmol/L Calcium 8.3 L 8.1 L (8.6-10.4) mg/dl Phosphorus 5.5 H (2.5-4.5) mg/dL Magnesium 1.9 (1.6-2.3) mg/dL Total Bilirubin 1.6 H 1.5 H (0.2-1.3) mg/dL AST 32 59 H D (14-36) U/L ALT 37 34 (9-52) U/L Alkaline Phosphatase 68 76 (38-126) U/L Total Protein 5.8 L 5.3 L (6.3-8.3) g/dL Albumin 2.3 L 2.6 L (3.5-5.0) g/dL Globulin 3.4 2.6 (2.2-3.9) gm/dL Albumin/Globulin Ratio 0.7 L 1.0 (1.0-2.1) Beta HCG, Quant mIU/ML Blood Type Antibody Screen 03/27/17 03/27/17 03/27/17 Range/Units 23:07 23:05 18:20 WBC 20.8 H (4.8-10.8) K/uL RBC 3.80 (3.80-5.20) Mil/uL Hgb 11.5 D (11.0-16.0) g/dL Hct 34.5 (34.0-47.0) % MCV 90.8 D (81.0-99.0) fL MCH 30.2 (27.0-31.0) pg MCHC 33.2 (33.0-37.0) g/dL RDW 14.9 H (11.5-14.5) % Plt Count 184 (130-400) K/uL MPV 7.9 (7.2-11.7) fL Neut % (Auto) 87.5 H (50.0-75.0) % Lymph % (Auto) 5.7 L (20.0-40.0) % [place] % (Auto) 6.2 (0.0-10.0) % Eos % (Auto) 0.1 (0.0-4.0) % Baso % (Auto) 0.5 (0.0-2.0) % Neut # 18.1 H (1.8-7.0) K/uL Lymph # 1.2 (1.0-4.3) K/uL Roane # 1.3 H (0.0-0.8) K/uL Eos # 0.0 (0.0-0.7) K/uL Baso # 0.1 (0.0-0.2) K/uL Neutrophils % (Manual) 83 H (50-75) % Band Neutrophils % 3 H (0-2) % Lymphocytes % (Manual) 11 L (20-40) % Monocytes % (Manual) 3 (0-10) % Nucleated RBC % (0-0) % Platelet Estimate Normal (NORMAL) Large Platelets Hypochromasia (manual) Slight Poikilocytosis (manual Slight Anisocytosis (manual) Slight Microcytosis (manual) Target Cells Constantine Cells Sodium (132-148) mmol/L Potassium (3.6-5.2) mmol/L Chloride (98-107) mmol/L Carbon Dioxide (22-30) mmol/L Anion Gap (10-20) BUN (7-17) mg/dL Creatinine (0.7-1.2) mg/dL Est GFR ( Amer) Est GFR (Non-Af Amer) POC Glucose (mg/dL) 143 H (65-110) mg/dL Random Glucose (65-105) mg/dL Lactic Acid (0.7-2.1) mmol/L Calcium (8.6-10.4) mg/dl Phosphorus (2.5-4.5) mg/dL Magnesium (1.6-2.3) mg/dL Total Bilirubin (0.2-1.3) mg/dL AST (14-36) U/L ALT (9-52) U/L Alkaline Phosphatase (38-126) U/L Total Protein (6.3-8.3) g/dL Albumin (3.5-5.0) g/dL Globulin (2.2-3.9) gm/dL Albumin/Globulin Ratio (1.0-2.1) Beta HCG, Quant < 2.39 mIU/ML Blood Type Antibody Screen 03/27/17 03/27/17 03/27/17 Range/Units 17:13 17:13 16:05 WBC (4.8-10.8) K/uL RBC (3.80-5.20) Mil/uL Hgb (11.0-16.0) g/dL Hct (34.0-47.0) % MCV (81.0-99.0) fL MCH (27.0-31.0) pg MCHC (33.0-37.0) g/dL RDW (11.5-14.5) % Plt Count (130-400) K/uL MPV (7.2-11.7) fL Neut % (Auto) (50.0-75.0) % Lymph % (Auto) (20.0-40.0) % Roane % (Auto) (0.0-10.0) % Eos % (Auto) (0.0-4.0) % Baso % (Auto) (0.0-2.0) % Neut # (1.8-7.0) K/uL Lymph # (1.0-4.3) K/uL Roane # (0.0-0.8) K/uL Eos # (0.0-0.7) K/uL Baso # (0.0-0.2) K/uL Neutrophils % (Manual) (50-75) % Band Neutrophils % (0-2) % Lymphocytes % (Manual) (20-40) % Monocytes % (Manual) (0-10) % Nucleated RBC % (0-0) % Platelet Estimate (NORMAL) Large Platelets Hypochromasia (manual) Poikilocytosis (manual Anisocytosis (manual) Microcytosis (manual) Target Cells Nell Cells Sodium (132-148) mmol/L Potassium (3.6-5.2) mmol/L Chloride (98-107) mmol/L Carbon Dioxide (22-30) mmol/L Anion Gap (10-20) BUN (7-17) mg/dL Creatinine (0.7-1.2) mg/dL Est GFR ( Amer) Est GFR (Non-Af Amer) POC Glucose (mg/dL) 73 (65-110) mg/dL Random Glucose (65-105) mg/dL Lactic Acid 1.2 (0.7-2.1) mmol/L Calcium (8.6-10.4) mg/dl Phosphorus (2.5-4.5) mg/dL Magnesium (1.6-2.3) mg/dL Total Bilirubin (0.2-1.3) mg/dL AST (14-36) U/L ALT (9-52) U/L Alkaline Phosphatase (38-126) U/L Total Protein (6.3-8.3) g/dL Albumin (3.5-5.0) g/dL Globulin (2.2-3.9) gm/dL Albumin/Globulin Ratio (1.0-2.1) Beta HCG, Quant mIU/ML Blood Type O POSITIVE Antibody Screen Negative 03/27/17 03/27/17 03/27/17 Range/Units 12:16 12:16 11:42 WBC 24.6 H D (4.8-10.8) K/uL RBC 2.13 L (3.80-5.20) Mil/uL Hgb 6.3 L* (11.0-16.0) g/dL Hct 20.0 L (34.0-47.0) % MCV 93.7 (81.0-99.0) fL MCH 29.6 (27.0-31.0) pg MCHC 31.6 L (33.0-37.0) g/dL RDW 16.2 H (11.5-14.5) % Plt Count 204 (130-400) K/uL MPV 7.9 (7.2-11.7) fL Neut % (Auto) 86.4 H (50.0-75.0) % Lymph % (Auto) 7.0 L (20.0-40.0) % Roane % (Auto) 6.0 (0.0-10.0) % Eos % (Auto) 0.2 (0.0-4.0) % Baso % (Auto) 0.4 (0.0-2.0) % Neut # 21.2 H (1.8-7.0) K/uL Lymph # 1.7 (1.0-4.3) K/uL Roane # 1.5 H (0.0-0.8) K/uL Eos # 0.0 (0.0-0.7) K/uL Baso # 0.1 (0.0-0.2) K/uL Neutrophils % (Manual) 85 H (50-75) % Band Neutrophils % (0-2) % Lymphocytes % (Manual) 9 L (20-40) % Monocytes % (Manual) 6 (0-10) % Nucleated RBC % (0-0) % Platelet Estimate Normal (NORMAL) Large Platelets Present Hypochromasia (manual) Moderate Poikilocytosis (manual Slight Anisocytosis (manual) Slight Microcytosis (manual) Slight Target Cells Nell Cells Sodium 130 L (132-148) mmol/L Potassium 4.0 (3.6-5.2) mmol/L Chloride 92 L (98-107) mmol/L Carbon Dioxide 27 (22-30) mmol/L Anion Gap 16 (10-20) BUN 60 H (7-17) mg/dL Creatinine 11.3 H* (0.7-1.2) mg/dL Est GFR ( Amer) 4 Est GFR (Non-Af Amer) 4 POC Glucose (mg/dL) 80 (65-110) mg/dL Random Glucose 71 (65-105) mg/dL Lactic Acid (0.7-2.1) mmol/L Calcium 8.8 (8.6-10.4) mg/dl Phosphorus (2.5-4.5) mg/dL Magnesium (1.6-2.3) mg/dL Total Bilirubin 0.5 (0.2-1.3) mg/dL AST 36 D (14-36) U/L ALT 35 (9-52) U/L Alkaline Phosphatase 77 (38-126) U/L Total Protein 6.4 (6.3-8.3) g/dL Albumin 2.6 L (3.5-5.0) g/dL Globulin 3.8 (2.2-3.9) gm/dL Albumin/Globulin Ratio 0.7 L (1.0-2.1) Beta HCG, Quant mIU/ML Blood Type Antibody Screen Laboratory Results - last 24 hr 03/27/17 03/27/17 03/27/17 11:42 12:16 12:16 WBC 24.6 H D RBC 2.13 L Hgb 6.3 L* Hct 20.0 L MCV 93.7 MCH 29.6 MCHC 31.6 L RDW 16.2 H Plt Count 204 MPV 7.9 Neut % (Auto) 86.4 H Lymph % (Auto) 7.0 L [place] % (Auto) 6.0 Eos % (Auto) 0.2 Baso % (Auto) 0.4 Neut # 21.2 H Lymph # 1.7 Roane # 1.5 H Eos # 0.0 Baso # 0.1 Neutrophils % (Manual) 85 H Band Neutrophils % Lymphocytes % (Manual) 9 L Monocytes % (Manual) 6 Nucleated RBC % Platelet Estimate Normal Large Platelets Present Hypochromasia (manual) Moderate Poikilocytosis (manual Slight Anisocytosis (manual) Slight Microcytosis (manual) Slight Target Cells Nell Cells Sodium 130 L Potassium 4.0 Chloride 92 L Carbon Dioxide 27 Anion Gap 16 BUN 60 H Creatinine 11.3 H* Est GFR ( Amer) 4 Est GFR (Non-Af Amer) 4 POC Glucose (mg/dL) 80 Random Glucose 71 Lactic Acid Calcium 8.8 Phosphorus Magnesium Total Bilirubin 0.5 AST 36 D ALT 35 Alkaline Phosphatase 77 Total Protein 6.4 Albumin 2.6 L Globulin 3.8 Albumin/Globulin Ratio 0.7 L Beta HCG, Quant Blood Type Antibody Screen 03/27/17 03/27/17 03/27/17 16:05 17:13 17:13 WBC RBC Hgb Hct MCV MCH MCHC RDW Plt Count MPV Neut % (Auto) Lymph % (Auto) Ro[place] % (Auto) Eos % (Auto) Baso % (Auto) Neut # Lymph # Ro[place] # Eos # Baso # Neutrophils % (Manual) Band Neutrophils % Lymphocytes % (Manual) Monocytes % (Manual) Nucleated RBC % Platelet Estimate Large Platelets Hypochromasia (manual) Poikilocytosis (manual Anisocytosis (manual) Microcytosis (manual) Target Cells Constantine Cells Sodium Potassium Chloride Carbon Dioxide Anion Gap BUN Creatinine Est GFR ( Amer) Est GFR (Non-Af Amer) POC Glucose (mg/dL) 73 Random Glucose Lactic Acid 1.2 Calcium Phosphorus Magnesium Total Bilirubin AST ALT Alkaline Phosphatase Total Protein Albumin Globulin Albumin/Globulin Ratio Beta HCG, Quant Blood Type O POSITIVE Antibody Screen Negative 03/27/17 03/27/17 03/27/17 18:20 23:05 23:07 WBC 20.8 H RBC 3.80 Hgb 11.5 D Hct 34.5 MCV 90.8 D MCH 30.2 MCHC 33.2 RDW 14.9 H Plt Count 184 MPV 7.9 Neut % (Auto) 87.5 H Lymph % (Auto) 5.7 L [place] % (Auto) 6.2 Eos % (Auto) 0.1 Baso % (Auto) 0.5 Neut # 18.1 H Lymph # 1.2 Ro[place] # 1.3 H Eos # 0.0 Baso # 0.1 Neutrophils % (Manual) 83 H Band Neutrophils % 3 H Lymphocytes % (Manual) 11 L Monocytes % (Manual) 3 Nucleated RBC % Platelet Estimate Normal Large Platelets Hypochromasia (manual) Slight Poikilocytosis (manual Slight Anisocytosis (manual) Slight Microcytosis (manual) Target Cells Constantine Cells Sodium Potassium Chloride Carbon Dioxide Anion Gap BUN Creatinine Est GFR ( Amer) Est GFR (Non-Af Amer) POC Glucose (mg/dL) 143 H Random Glucose Lactic Acid Calcium Phosphorus Magnesium Total Bilirubin AST ALT Alkaline Phosphatase Total Protein Albumin Globulin Albumin/Globulin Ratio Beta HCG, Quant < 2.39 Blood Type Antibody Screen 03/27/17 03/28/17 03/28/17 23:07 06:28 06:28 WBC 19.6 H RBC 3.41 L Hgb 10.2 L Hct 30.6 L MCV 89.8 MCH 29.9 MCHC 33.3 RDW 14.8 H Plt Count 170 MPV 8.0 Neut % (Auto) 87.5 H Lymph % (Auto) 5.2 L [place] % (Auto) 6.7 Eos % (Auto) 0.1 Baso % (Auto) 0.5 Neut # 17.2 H Lymph # 1.0 Ro[place] # 1.3 H Eos # 0.0 Baso # 0.1 Neutrophils % (Manual) 87 H Band Neutrophils % 4 H Lymphocytes % (Manual) 4 L Monocytes % (Manual) 5 Nucleated RBC % 1 H Platelet Estimate Normal Large Platelets Present Hypochromasia (manual) Slight Poikilocytosis (manual Slight Anisocytosis (manual) Slight Microcytosis (manual) Target Cells Slight Nell Cells Slight Sodium 128 L 131 L Potassium 4.7 4.9 Chloride 93 L 94 L Carbon Dioxide 24 22 Anion Gap 17 20 BUN 68 H 70 H Creatinine 10.8 H* 11.6 H* Est GFR ( Amer) 5 4 Est GFR (Non-Af Amer) 4 3 POC Glucose (mg/dL) Random Glucose 117 H 131 H Lactic Acid Calcium 8.1 L 8.3 L Phosphorus 5.5 H Magnesium 1.9 Total Bilirubin 1.5 H 1.6 H AST 59 H D 32 ALT 34 37 Alkaline Phosphatase 76 68 Total Protein 5.3 L 5.8 L Albumin 2.6 L 2.3 L Globulin 2.6 3.4 Albumin/Globulin Ratio 1.0 0.7 L Beta HCG, Quant Blood Type Antibody Screen Fingerstick Blood Sugar Results: 143 Review of Systems - Constitutional Constitutional: absent: Chills, Sweats - Cardiovascular Cardiovascular: absent: Chest Pain, Chest Pain at Rest, Dyspnea - Respiratory Respiratory: absent: Cough, Dyspnea on Exertion, Wheezing - Gastrointestinal Gastrointestinal: Abdominal Pain Additional comments: appropriate s/p surgery - Neurological Neurological: absent: Dizziness Critical Care Progress Note - Nutrition Nutrition: Nutrition Category Date Time Status NPO Diet [DIET] Diets 03/28/17 Breakfast Active Assessment/Plan - Assessment and Plan (Free Text) Assessment: 51 y/o F with pmhx of ESRD, hypertension, high cholesterol, uncontrolled DMII, PAD, ischemic right leg POD#1 s/p exploratory lap with subtotal colectomy with ileostomy and R subclavian permacath. Neuro:intact Cardio: hx htn * monitor Pulm: Cxray (03/28): ng tube extending into stomach. right central venous catheter tip extending into right atrium. moderate venous congestion with patchy consolidative changes at the left lung base. bilateral hilar prominence. small nodular density at the lateral aspect of the right midlung zone may represent prominence of the pulmonary vasculature. cardiomegly. Renal: hx ESRD, POD #1 s/p R subclavian permacath * peritoneal dialysis catheter removed * Dr. Macdonald consulted, help appreciated * dialysis today Endo: hx DMII * Lantus 10 u sc hs * R ISS GI: s/p exploratory lap with subtotal colectomy * continue pain control with dilaudid * NG tube MSK: ischemic right leg * 02/27: positive wound culture for Serratia Marcescens and Vanco resistant E. faecium * patient to have BKA with Dr. Clark once stable * Dr. Ordonez consulted, help appreciated * antibiotics as below ID: * Dr. Cronin consulted, help appreciated * Linezolid * Meropenem Prophylaxis: * DVT: 5000 u sc q12h * GI: not currently indicated
--- NOTE | 2017-03-28 09:17 | RAD ---
Chest x-ray single frontal view History: Congestive heart failure. Comparison: 03/25/2017 Findings: NG tube extending into the stomach. Right central venous catheter tip extending into the right atrium. Moderate venous congestion with patchy consolidative change at the left lung base. Bilateral hilar prominence. Small nodular density at the lateral aspect of the right midlung zone may represent prominence of the pulmonary vasculature. Cardiomegaly. Degenerative changes in the spine. Impression: NG tube extending into the stomach. Right central venous catheter tip extending into the right atrium. Moderate venous congestion with patchy consolidative change at the left lung base. Bilateral hilar prominence. Small nodular density at the lateral aspect of the right midlung zone may represent prominence of the pulmonary vasculature. Cardiomegaly.
--- NOTE | 2017-03-28 09:36 | CP.PCM.PN ---
Subjective - Date & Time of Evaluation Date of Evaluation: 03/28/17 Time of Evaluation: 09:33 - Subjective Subjective: Events noted- s/p exploratory lap due to vomiting fecal matter. s/p subtotal colectomy, removal PD cath, ileostomy placement awake now in moderate pain permcath placed- will need hemodialysis on IV ABs Objective - Vital Signs/Intake and Output Vital Signs (last 24 hours): Temp Pulse Resp BP Pulse Ox 98.5 F 103 H 20 149/50 L 100 03/28/17 04:00 03/28/17 07:02 03/28/17 07:02 03/28/17 07:02 03/28/17 07:02 Intake and Output: 03/28/17 03/28/17 06:59 18:59 Intake Total 860 30 Output Total 210 Balance 650 30 - Medications Medications: Current Medications Acetaminophen (Tylenol 325mg Tab) 650 mg PO Q6 PRN PRN Reason: Pain, Mild (1-3) Last Admin: 03/27/17 16:24 Dose: 650 mg Amlodipine Besylate (Norvasc) 10 mg PO DAILY [facility] Last Admin: 03/27/17 10:41 Dose: 10 mg Benzocaine/Menthol (Cepacol Sore Throat) 1 poppy MT QID PRN PRN Reason: Sore Throat Carvedilol (Coreg) 12.5 mg PO BID [facility] Last Admin: 03/27/17 10:55 Dose: 12.5 mg Clopidogrel Bisulfate (Plavix) 75 mg PO DAILY [facility] Last Admin: 03/27/17 10:41 Dose: 75 mg Dextrose (Dextrose 50% Inj) 0 ml IV STAT PRN; Protocol PRN Reason: Hyglycemia Protocol Last Admin: 03/13/17 07:17 Dose: 25 ml Dextrose (Glutose 15) 0 gm PO ONCE PRN; Protocol PRN Reason: Hypoglycemia Protocol Last Admin: 03/26/17 07:17 Dose: 15 gm Docusate Sodium (Colace) 100 mg PO Q8 PRN PRN Reason: Constipation Epoetin Alec (Procrit) 10,000 unit SC MWF [facility] Last Admin: 03/27/17 11:42 Dose: 10,000 unit Hydromorphone HCl (Dilaudid) 0.5 mg IVP Q3 PRN PRN Reason: Pain, moderate (4-7) Last Admin: 03/28/17 07:00 Dose: 0.5 mg Meropenem 500 mg/ Sodium (Chloride) 100 mls @ 100 mls/hr IVPB Q24H [facility] Last Admin: 03/27/17 10:40 Dose: 100 mls/hr Dextrose/Sodium Chloride (Dextrose 5%/0.45% Ns 1000 Ml) 1,000 mls @ 70 mls/hr IV .[id number] [facility] Last Admin: 03/27/17 14:16 Dose: Not Given Sodium Chloride (Sodium Chloride 0.9%) 1,000 mls @ 30 mls/hr IV .Q24H [facility] Last Admin: 03/27/17 23:53 Dose: 30 mls/hr Insulin Glargine (Lantus) 10 unit SC HS [facility] Last Admin: 03/27/17 23:44 Dose: Not Given Insulin Human Regular (Novolin R) 0 unit SC ACHS [facility] PRN Reason: Protocol Last Admin: 03/27/17 23:44 Dose: Not Given Lactulose (Enulose) 20 gm PO DAILY PRN PRN Reason: Constipation Last Admin: 03/27/17 11:43 Dose: 20 gm Linezolid (Zyvox) 600 mg PO Q12 [facility] Last Admin: 03/28/17 02:14 Dose: Not Given Losartan Potassium (Cozaar) 100 mg PO DAILY@1800 [facility] Last Admin: 03/28/17 08:44 Dose: Not Given Ondansetron HCl (Zofran Inj) 4 mg IVP Q4 PRN PRN Reason: Nausea/Vomiting - Labs Labs: 03/28/17 06:28 03/28/17 06:28 PT 11.7 SECONDS (9.7-12.2) 03/13/17 08:31 INR 1.0 03/13/17 08:31 APTT 41 SECONDS (21-34) H 03/13/17 08:31 - Constitutional Appears: In Acute Distress, Chronically Ill - Head Exam Head Exam: ATRAUMATIC, NORMAL INSPECTION - Eye Exam Eye Exam: EOMI, Normal appearance - Neck Exam Neck Exam: Normal Inspection. absent: Tenderness - Respiratory Exam Respiratory Exam: Clear to Ausculation Bilateral, NORMAL BREATHING PATTERN - Cardiovascular Exam Cardiovascular Exam: Tachycardia, +S1 - GI/Abdominal Exam GI & Abdominal Exam: Tenderness, Diminished Bowel Sounds - Extremities Exam Extremities Exam: Calf Tenderness, Tenderness - Neurological Exam Neurological Exam: Awake, CN II-XII Intact - Skin Skin Exam: Dry, Warm Assessment and Plan (1) Type 1 diabetes mellitus with diabetic nephropathy Status: Acute (2) Gangrene of right foot Status: Acute (3) End stage renal disease Status: Acute (4) Fecal impaction Status: Acute - Assessment and Plan (Free Text) Plan: Will need dialysis IV ABs Surgical follow up Eventual right BKA still
--- NOTE | 2017-03-28 09:43 | RAD ---
PROCEDURE: Intraoperative Fluoroscopy. HISTORY: RENAL FAILURE FINDINGS: Fluoroscopic assistance was provided for right central venous catheter placement. Please refer to the operative report from
[2017-03-28] MEDS: Meropenem 500 MG in Sodium Chloride 0.9% 100 ML IVPB SCH (15:08)
[2017-03-28] MEDS: Sodium Chloride 0.9% 1,000 ML IV SCH (15:14)
--- NOTE | 2017-03-28 16:26 | CP.PCM.PN ---
Subjective - Date & Time of Evaluation Date of Evaluation: 03/28/17 Time of Evaluation: 16:24 - Subjective Subjective: Surgery: Dr. Clark Pt seen and examined. No acute events overnight. Pain is controlled. No N/V. No F/C. Objective - Vital Signs/Intake and Output Vital Signs (last 24 hours): Temp Pulse Resp BP Pulse Ox 99.2 F 97 H 19 151/55 H 100 03/28/17 12:00 03/28/17 15:00 03/28/17 15:00 03/28/17 15:00 03/28/17 15:00 Intake and Output: 03/28/17 03/28/17 06:59 18:59 Intake Total 860 390 Output Total 210 Balance 650 390 - Medications Medications: Current Medications Acetaminophen (Tylenol 325mg Tab) 650 mg PO Q6 PRN PRN Reason: Pain, Mild (1-3) Last Admin: 03/27/17 16:24 Dose: 650 mg Benzocaine/Menthol (Cepacol Sore Throat) 1 poppy MT QID PRN PRN Reason: Sore Throat Dextrose (Dextrose 50% Inj) 0 ml IV STAT PRN; Protocol PRN Reason: Hyglycemia Protocol Last Admin: 03/13/17 07:17 Dose: 25 ml Dextrose (Glutose 15) 0 gm PO ONCE PRN; Protocol PRN Reason: Hypoglycemia Protocol Last Admin: 03/26/17 07:17 Dose: 15 gm Epoetin Alec (Procrit) 10,000 unit SC MWF [facility] Last Admin: 03/27/17 11:42 Dose: 10,000 unit Heparin Sodium (Porcine) (Heparin) 5,000 units SC Q12H [facility] Last Admin: 03/28/17 15:08 Dose: 5,000 units Hydromorphone HCl (Dilaudid) 1 mg IVP Q3 PRN PRN Reason: Pain, moderate (4-7) Last Admin: 03/28/17 10:43 Dose: 1 mg Meropenem 500 mg/ Sodium (Chloride) 100 mls @ 100 mls/hr IVPB Q24H [facility] Last Admin: 03/28/17 15:08 Dose: 100 mls/hr Sodium Chloride (Sodium Chloride 0.9%) 1,000 mls @ 60 mls/hr IV .[id number] [facility] Last Admin: 03/28/17 15:14 Dose: Not Given Linezolid (Zyvox 600mg/300ml D5w) 600 mg in 300 mls @ 200 mls/hr IVPB Q12 [facility] Insulin Glargine (Lantus) 10 unit SC HS [facility] Last Admin: 03/27/17 23:44 Dose: Not Given Insulin Human Regular (Novolin R) 0 unit SC ACHS [facility] PRN Reason: Protocol Last Admin: 03/28/17 11:30 Dose: Not Given Ondansetron HCl (Zofran Inj) 4 mg IVP Q4 PRN PRN Reason: Nausea/Vomiting - Labs Labs: 03/28/17 06:28 03/28/17 06:28 PT 11.7 SECONDS (9.7-12.2) 03/13/17 08:31 INR 1.0 03/13/17 08:31 APTT 41 SECONDS (21-34) H 03/13/17 08:31 - Constitutional Appears: Non-toxic, No Acute Distress - Head Exam Head Exam: ATRAUMATIC, NORMOCEPHALIC - Eye Exam Eye Exam: EOMI - Respiratory Exam Respiratory Exam: NORMAL BREATHING PATTERN. absent: Accessory Muscle Use, Respiratory Distress - GI/Abdominal Exam GI & Abdominal Exam: Soft, Tenderness (shaniqua-incisional ). absent: Distended, Firm, Guarding, Rigid, Rebound Additional comments: dressing in place, C/D/I - Extremities Exam Extremities Exam: absent: Calf Tenderness, Pedal Edema - Neurological Exam Neurological Exam: Alert, Awake, Oriented x3 - Skin Skin Exam: Dry, Warm Assessment and Plan - Assessment and Plan (Free Text) Assessment: 51F w. dilated colon 2/2 fecal retention, s/p ex-lap w. subtotal colectomy, POD# 1 -will start CLD -continue w. pain meds -continue w. abx -encourage IS use -will continue to follow closely -BKA on hold until pt recovers from current surgery -d/w attending Oleg PGY3
[2017-03-28] MEDS: Linezolid 600 mg in D5W 300 ml 600 MG/300 ML BAG IVPB SCH (22:01)
[2017-03-28] MEDS: (Lantus) Insulin Glargine, Recombinant SC SCH (22:50)
[2017-03-29] MEDS: Sodium Chloride 0.9% 1,000 ML IV SCH ×3 (04:10→23:07)
[2017-03-29] MEDS: HYDROmorphone 0.5 mg/0.5 ml ISec IVP PRN ×4 (04:13→21:16)
[2017-03-29] MEDS: (Novolin R) Insulin Human Regular 100 units/ml vial SC SCH ×4 (07:30→22:00)
[2017-03-29 08:11] LABS: BASO # 0.1 K/uL (0.0-0.2); BASO % 0.5 % (0.0-2.0); EOS # 0.1 K/uL (0.0-0.7); EOS % 0.7 % (0.0-4.0); HEMATOCRIT 26.8 % (34.0-47.0); LYMPH # 1.3 K/uL (1.0-4.3); LYMPH % 8.6 % (20.0-40.0); MEAN CELL VOLUME 91.6 fL (81.0-99.0); MEAN CORPUSCULAR HEMOGLOBIN 29.8 pg (27.0-31.0); MEAN CORPUSCULAR HGB CONC 32.6 g/dL (33.0-37.0); MEAN PLATELET VOLUME 8.1 fL (7.2-11.7); MONO # 1.9 K/uL (0.0-0.8); MONO % 12.2 % (0.0-10.0); PLATELET COUNT 166 K/uL (130-400); RED CELL DISTRIBUTION WIDTH 15.2 % (11.5-14.5); WHITE BLOOD COUNT 15.4 K/uL (4.8-10.8)
[2017-03-29 08:34] LABS: BILIRUBIN,TOTAL 0.9 mg/dL (0.2-1.3)
[2017-03-29 08:35] LABS: CALCIUM 7.5 mg/dl (8.6-10.4); PHOSPHOROUS 4.6 mg/dL (2.5-4.5)
[2017-03-29] MEDS ORDERED: Meropenem 500 MG in Dextrose 5% In Water 100 ML IVPB SCH (09:00)
[2017-03-29 10:11] LABS: BASOPHIL 1 % (0-2); NEUTROPHIL 79 % (50-75); TOTAL CELLS COUNTED 100
[2017-03-29] MEDS: Linezolid 600 mg in D5W 300 ml 600 MG/300 ML BAG IVPB SCH ×2 (10:30→22:00)
[2017-03-29] MEDS: EPOETIN ALFA 10,000 UNIT/ML ML SC SCH (11:48)
--- NOTE | 2017-03-29 13:00 | CP.PCM.PN ---
Subjective - Date & Time of Evaluation Date of Evaluation: 03/29/17 Time of Evaluation: 12:57 - Subjective Subjective: s/p dialysis 03/28- UF 750ml- tolerated well Alert now- starting clear liquids chemistries acceptable advised patient - she will need HD going forward no CPs, nausea, vomiting, SOB same moderate pains abdomen Objective - Vital Signs/Intake and Output Vital Signs (last 24 hours): Temp Pulse Resp BP Pulse Ox 99.1 F 101 H 11 L 167/66 H 100 03/29/17 08:16 03/29/17 06:01 03/29/17 06:01 03/29/17 06:01 03/29/17 06:01 Intake and Output: 03/29/17 03/29/17 06:59 18:59 Intake Total 860 120 Output Total 160 70 Balance 700 50 - Medications Medications: Current Medications Acetaminophen (Tylenol 325mg Tab) 650 mg PO Q6 PRN PRN Reason: Pain, Mild (1-3) Last Admin: 03/29/17 11:10 Dose: 650 mg Benzocaine/Menthol (Cepacol Sore Throat) 1 poppy MT QID PRN PRN Reason: Sore Throat Dextrose (Dextrose 50% Inj) 0 ml IV STAT PRN; Protocol PRN Reason: Hyglycemia Protocol Last Admin: 03/13/17 07:17 Dose: 25 ml Dextrose (Glutose 15) 0 gm PO ONCE PRN; Protocol PRN Reason: Hypoglycemia Protocol Last Admin: 03/26/17 07:17 Dose: 15 gm Epoetin Alec (Procrit) 10,000 unit IV TTS [facility] Heparin Sodium (Porcine) (Heparin) 5,000 units SC Q12H [facility] Last Admin: 03/29/17 10:43 Dose: 5,000 units Hydromorphone HCl (Dilaudid) 1 mg IVP Q3 PRN PRN Reason: Pain, moderate (4-7) Last Admin: 03/29/17 09:45 Dose: 1 mg Sodium Chloride (Sodium Chloride 0.9%) 1,000 mls @ 60 mls/hr IV .[id number] [facility] Last Admin: 03/29/17 04:10 Dose: 60 mls/hr Linezolid (Zyvox 600mg/300ml D5w) 600 mg in 300 mls @ 200 mls/hr IVPB Q12 [facility] Last Admin: 03/29/17 10:30 Dose: 200 mls/hr Meropenem 500 mg/ Dextrose 100 mls @ 100 mls/hr IVPB Q24H [facility] Last Admin: 03/29/17 09:30 Dose: 100 mls/hr Insulin Glargine (Lantus) 10 unit SC HS [facility] Last Admin: 03/28/17 22:50 Dose: Not Given Insulin Human Regular (Novolin R) 0 unit SC ACHS [facility] PRN Reason: Protocol Last Admin: 03/29/17 12:13 Dose: Not Given Ondansetron HCl (Zofran Inj) 4 mg IVP Q4 PRN PRN Reason: Nausea/Vomiting - Labs Labs: 03/29/17 08:04 03/29/17 08:04 PT 11.7 SECONDS (9.7-12.2) 03/13/17 08:31 INR 1.0 03/13/17 08:31 APTT 41 SECONDS (21-34) H 03/13/17 08:31 - Constitutional Appears: Non-toxic, Chronically Ill - Head Exam Head Exam: ATRAUMATIC, NORMAL INSPECTION - Eye Exam Eye Exam: EOMI, Normal appearance - Neck Exam Neck Exam: Normal Inspection. absent: Tenderness - Respiratory Exam Respiratory Exam: Clear to Ausculation Bilateral, NORMAL BREATHING PATTERN - Cardiovascular Exam Cardiovascular Exam: Tachycardia, +S1 - GI/Abdominal Exam GI & Abdominal Exam: Tenderness, Hypoactive Bowel Sounds - Extremities Exam Extremities Exam: Calf Tenderness, Tenderness - Neurological Exam Neurological Exam: Alert, CN II-XII Intact - Skin Skin Exam: Dry, Warm Assessment and Plan (1) Type 1 diabetes mellitus with diabetic nephropathy Status: Acute (2) Gangrene of right foot Status: Acute (3) End stage renal disease Status: Acute (4) Fecal impaction Status: Acute - Assessment and Plan (Free Text) Plan: stable post subtotal colectomy HD course so far well tolerated- continue TTS schedule clear liquids IV ABs pain management eventual BKA when stable change to IV ESAs
--- NOTE | 2017-03-29 13:37 | CP.CCUPN ---
<Audrey Garcia - Last Filed: 03/29/17 13:34> CCU Subjective - Physician Review Subjective (Free Text): Patient seen and examined at bedside and in no acute distress. Patient admits to abdominal pain over the incision site. Patient is also having pain in her right foot. Patient has no passed flatus or had a bowel movement. Patient denies shortness of breath, chest pain, nausea or vomiting. CCU Objective - Vital Signs / Intake & Output Intake and Output (Last 8hrs): Intake & Output 03/28/17 03/29/17 03/29/17 22:59 06:59 14:59 Intake Total 620 480 120 Output Total 60 100 70 Balance 560 380 50 Intake: Intake, IV Amount 620 480 120 Right PICC 620 480 120 Output: Drainage 60 100 70 Left Abdomen 60 100 70 Emesis 0 Other: # Bowel Movements 0 - Physical Exam Head: Positive for: Atraumatic, Normocephalic Respiratory/Chest: Positive for: Good Air Exchange. Negative for: Respiratory Distress, Accessory Muscle Use Cardiovascular: Positive for: Normal S1, S2 Abdomen: Positive for: Tenderness (appropriate s/p surgery), Distention Lower Extremity: Negative for: Normal Inspection (right foot amputation, necrotic wound wrapped in d/c/i dressing) Neurological: Positive for: GCS=15 Skin: Positive for: Warm Psychiatric: Positive for: Alert, Oriented x 3 - Medications Active Medications: Active Medications Generic Name Dose Route Start Last Admin Trade Name Freq PRN Reason Stop Dose Admin Acetaminophen 650 mg 03/09/17 20:48 03/29/17 11:10 Tylenol 325mg Tab PO 650 mg Q6 PRN Administration Pain, Mild (1-3) Benzocaine/Menthol 1 poppy 03/27/17 16:19 Cepacol Sore Throat MT QID PRN Sore Throat Dextrose 0 ml 03/13/17 07:03 03/13/17 07:17 Dextrose 50% Inj IV 25 ml STAT PRN Administration Hyglycemia Protocol Protocol Dextrose 0 gm 03/13/17 07:03 03/26/17 07:17 Glutose 15 PO 15 gm ONCE PRN Administration Hypoglycemia Protocol Protocol Epoetin Alec 10,000 unit 03/30/17 10:00 Procrit IV TTS GUILLERMO Heparin Sodium (Porcine) 5,000 units 03/28/17 10:30 03/29/17 10:43 Heparin SC 5,000 units Q12H GUILLERMO Administration Hydromorphone HCl 1 mg 03/28/17 10:09 03/29/17 09:45 Dilaudid IVP 1 mg Q3 PRN Administration Pain, moderate (4-7) Sodium Chloride 1,000 mls @ 60 mls/hr 03/28/17 10:30 03/29/17 04:10 Sodium Chloride 0.9% IV 60 mls/hr .[id number] GUILLERMO Administration Linezolid 600 mg in 300 mls @ 200 mls/hr 03/28/17 22:00 03/29/17 10:30 Zyvox 600mg/300ml D5w IVPB 200 mls/hr Q12 GUILLERMO Administration Meropenem 500 mg/ Dextrose 100 mls @ 100 mls/hr 03/29/17 09:00 03/29/17 09:30 IVPB 100 mls/hr Q24H GUILLERMO Administration Insulin Glargine 10 unit 03/13/17 22:15 03/28/17 22:50 Lantus SC Not Given HS GUILLERMO Insulin Human Regular 0 unit 03/20/17 16:30 03/29/17 12:13 Novolin R SC Not Given ACHS [facility] Protocol Ondansetron HCl 4 mg 03/27/17 22:36 Zofran Inj IVP Q4 PRN Nausea/Vomiting - Patient Studies Lab Studies: Lab Studies 03/29/17 03/29/17 03/29/17 Range/Units 11:49 08:04 08:04 WBC 15.4 H (4.8-10.8) K/uL RBC 2.93 L (3.80-5.20) Mil/uL Hgb 8.7 L (11.0-16.0) g/dL Hct 26.8 L (34.0-47.0) % MCV 91.6 (81.0-99.0) fL MCH 29.8 (27.0-31.0) pg MCHC 32.6 L (33.0-37.0) g/dL RDW 15.2 H (11.5-14.5) % Plt Count 166 (130-400) K/uL MPV 8.1 (7.2-11.7) fL Neut % (Auto) 78.0 H (50.0-75.0) % Lymph % (Auto) 8.6 L (20.0-40.0) % [place] % (Auto) 12.2 H (0.0-10.0) % Eos % (Auto) 0.7 (0.0-4.0) % Baso % (Auto) 0.5 (0.0-2.0) % Neut # 12.0 H (1.8-7.0) K/uL Lymph # 1.3 (1.0-4.3) K/uL [place] # 1.9 H (0.0-0.8) K/uL Eos # 0.1 (0.0-0.7) K/uL Baso # 0.1 (0.0-0.2) K/uL Neutrophils % (Manual) 79 H (50-75) % Lymphocytes % (Manual) 8 L (20-40) % Monocytes % (Manual) 12 H (0-10) % Basophils % (Manual) 1 (0-2) % Platelet Estimate Normal (NORMAL) Hypochromasia (manual) Slight Anisocytosis (manual) Slight Ovalocytes Slight Sodium 131 L (132-148) mmol/L Potassium 4.0 (3.6-5.2) mmol/L Chloride 96 L (98-107) mmol/L Carbon Dioxide 22 (22-30) mmol/L Anion Gap 17 (10-20) BUN 45 H (7-17) mg/dL Creatinine 7.4 H* D (0.7-1.2) mg/dL Est GFR ( Amer) 7 Est GFR (Non-Af Amer) 6 POC Glucose (mg/dL) 163 H (65-110) mg/dL Random Glucose 130 H (65-105) mg/dL Calcium 7.5 L (8.6-10.4) mg/dl Phosphorus 4.6 H (2.5-4.5) mg/dL Magnesium 2.0 (1.6-2.3) mg/dL Total Bilirubin 0.9 (0.2-1.3) mg/dL AST 37 H (14-36) U/L ALT 37 (9-52) U/L Alkaline Phosphatase 66 (38-126) U/L Total Protein 5.0 L (6.3-8.3) g/dL Albumin 2.4 L (3.5-5.0) g/dL Globulin 2.5 (2.2-3.9) gm/dL Albumin/Globulin Ratio 1.0 (1.0-2.1) Hep Bs Antigen (NEGATIVE) Hep Bs Antibody (NEGATIVE) Hep B Core IgM Ab (NEGATIVE) Hepatitis C Antibody (NEGATIVE) 03/29/17 03/28/17 03/28/17 Range/Units 07:39 21:14 16:22 WBC (4.8-10.8) K/uL RBC (3.80-5.20) Mil/uL Hgb (11.0-16.0) g/dL Hct (34.0-47.0) % MCV (81.0-99.0) fL MCH (27.0-31.0) pg MCHC (33.0-37.0) g/dL RDW (11.5-14.5) % Plt Count (130-400) K/uL MPV (7.2-11.7) fL Neut % (Auto) (50.0-75.0) % Lymph % (Auto) (20.0-40.0) % [place] % (Auto) (0.0-10.0) % Eos % (Auto) (0.0-4.0) % Baso % (Auto) (0.0-2.0) % Neut # (1.8-7.0) K/uL Lymph # (1.0-4.3) K/uL [place] # (0.0-0.8) K/uL Eos # (0.0-0.7) K/uL Baso # (0.0-0.2) K/uL Neutrophils % (Manual) (50-75) % Lymphocytes % (Manual) (20-40) % Monocytes % (Manual) (0-10) % Basophils % (Manual) (0-2) % Platelet Estimate (NORMAL) Hypochromasia (manual) Anisocytosis (manual) Ovalocytes Sodium (132-148) mmol/L Potassium (3.6-5.2) mmol/L Chloride (98-107) mmol/L Carbon Dioxide (22-30) mmol/L Anion Gap (10-20) BUN (7-17) mg/dL Creatinine (0.7-1.2) mg/dL Est GFR ( Amer) Est GFR (Non-Af Amer) POC Glucose (mg/dL) 131 H 92 80 (65-110) mg/dL Random Glucose (65-105) mg/dL Calcium (8.6-10.4) mg/dl Phosphorus (2.5-4.5) mg/dL Magnesium (1.6-2.3) mg/dL Total Bilirubin (0.2-1.3) mg/dL AST (14-36) U/L ALT (9-52) U/L Alkaline Phosphatase (38-126) U/L Total Protein (6.3-8.3) g/dL Albumin (3.5-5.0) g/dL Globulin (2.2-3.9) gm/dL Albumin/Globulin Ratio (1.0-2.1) Hep Bs Antigen (NEGATIVE) Hep Bs Antibody (NEGATIVE) Hep B Core IgM Ab (NEGATIVE) Hepatitis C Antibody (NEGATIVE) 03/28/17 03/28/17 Range/Units 12:47 12:47 WBC (4.8-10.8) K/uL RBC (3.80-5.20) Mil/uL Hgb (11.0-16.0) g/dL Hct (34.0-47.0) % MCV (81.0-99.0) fL MCH (27.0-31.0) pg MCHC (33.0-37.0) g/dL RDW (11.5-14.5) % Plt Count (130-400) K/uL MPV (7.2-11.7) fL Neut % (Auto) (50.0-75.0) % Lymph % (Auto) (20.0-40.0) % [place] % (Auto) (0.0-10.0) % Eos % (Auto) (0.0-4.0) % Baso % (Auto) (0.0-2.0) % Neut # (1.8-7.0) K/uL Lymph # (1.0-4.3) K/uL [place] # (0.0-0.8) K/uL Eos # (0.0-0.7) K/uL Baso # (0.0-0.2) K/uL Neutrophils % (Manual) (50-75) % Lymphocytes % (Manual) (20-40) % Monocytes % (Manual) (0-10) % Basophils % (Manual) (0-2) % Platelet Estimate (NORMAL) Hypochromasia (manual) Anisocytosis (manual) Ovalocytes Sodium (132-148) mmol/L Potassium (3.6-5.2) mmol/L Chloride (98-107) mmol/L Carbon Dioxide (22-30) mmol/L Anion Gap (10-20) BUN (7-17) mg/dL Creatinine (0.7-1.2) mg/dL Est GFR ( Amer) Est GFR (Non-Af Amer) POC Glucose (mg/dL) (65-110) mg/dL Random Glucose (65-105) mg/dL Calcium (8.6-10.4) mg/dl Phosphorus (2.5-4.5) mg/dL Magnesium (1.6-2.3) mg/dL Total Bilirubin (0.2-1.3) mg/dL AST (14-36) U/L ALT (9-52) U/L Alkaline Phosphatase (38-126) U/L Total Protein (6.3-8.3) g/dL Albumin (3.5-5.0) g/dL Globulin (2.2-3.9) gm/dL Albumin/Globulin Ratio (1.0-2.1) Hep Bs Antigen Negative (NEGATIVE) Hep Bs Antibody Positive (NEGATIVE) Hep B Core IgM Ab Negative (NEGATIVE) Hepatitis C Antibody Negative (NEGATIVE) Laboratory Results - last 24 hr 03/28/17 03/28/17 03/28/17 12:47 12:47 16:22 WBC RBC Hgb Hct MCV MCH MCHC RDW Plt Count MPV Neut % (Auto) Lymph % (Auto) [place] % (Auto) Eos % (Auto) Baso % (Auto) Neut # Lymph # [place] # Eos # Baso # Neutrophils % (Manual) Lymphocytes % (Manual) Monocytes % (Manual) Basophils % (Manual) Platelet Estimate Hypochromasia (manual) Anisocytosis (manual) Ovalocytes Sodium Potassium Chloride Carbon Dioxide Anion Gap BUN Creatinine Est GFR ( Amer) Est GFR (Non-Af Amer) POC Glucose (mg/dL) 80 Random Glucose Calcium Phosphorus Magnesium Total Bilirubin AST ALT Alkaline Phosphatase Total Protein Albumin Globulin Albumin/Globulin Ratio Hep Bs Antigen Negative Hep Bs Antibody Positive Hep B Core IgM Ab Negative Hepatitis C Antibody Negative 03/28/17 03/29/17 03/29/17 21:14 07:39 08:04 WBC 15.4 H RBC 2.93 L Hgb 8.7 L Hct 26.8 L MCV 91.6 MCH 29.8 MCHC 32.6 L RDW 15.2 H Plt Count 166 MPV 8.1 Neut % (Auto) 78.0 H Lymph % (Auto) 8.6 L [place] % (Auto) 12.2 H Eos % (Auto) 0.7 Baso % (Auto) 0.5 Neut # 12.0 H Lymph # 1.3 [place] # 1.9 H Eos # 0.1 Baso # 0.1 Neutrophils % (Manual) 79 H Lymphocytes % (Manual) 8 L Monocytes % (Manual) 12 H Basophils % (Manual) 1 Platelet Estimate Normal Hypochromasia (manual) Slight Anisocytosis (manual) Slight Ovalocytes Slight Sodium Potassium Chloride Carbon Dioxide Anion Gap BUN Creatinine Est GFR ( Amer) Est GFR (Non-Af Amer) POC Glucose (mg/dL) 92 131 H Random Glucose Calcium Phosphorus Magnesium Total Bilirubin AST ALT Alkaline Phosphatase Total Protein Albumin Globulin Albumin/Globulin Ratio Hep Bs Antigen Hep Bs Antibody Hep B Core IgM Ab Hepatitis C Antibody 03/29/17 03/29/17 08:04 11:49 WBC RBC Hgb Hct MCV MCH MCHC RDW Plt Count MPV Neut % (Auto) Lymph % (Auto) [place] % (Auto) Eos % (Auto) Baso % (Auto) Neut # Lymph # [place] # Eos # Baso # Neutrophils % (Manual) Lymphocytes % (Manual) Monocytes % (Manual) Basophils % (Manual) Platelet Estimate Hypochromasia (manual) Anisocytosis (manual) Ovalocytes Sodium 131 L Potassium 4.0 Chloride 96 L Carbon Dioxide 22 Anion Gap 17 BUN 45 H Creatinine 7.4 H* D Est GFR ( Amer) 7 Est GFR (Non-Af Amer) 6 POC Glucose (mg/dL) 163 H Random Glucose 130 H Calcium 7.5 L Phosphorus 4.6 H Magnesium 2.0 Total Bilirubin 0.9 AST 37 H ALT 37 Alkaline Phosphatase 66 Total Protein 5.0 L Albumin 2.4 L Globulin 2.5 Albumin/Globulin Ratio 1.0 Hep Bs Antigen Hep Bs Antibody Hep B Core IgM Ab Hepatitis C Antibody Fingerstick Blood Sugar Results: 131 Review of Systems - Constitutional Constitutional: absent: Fever, Chills, Sweats - Cardiovascular Cardiovascular: Leg Ulcers. absent: Chest Pain, Chest Pain at Rest, Diaphoresis , Dyspnea - Respiratory Respiratory: absent: Wheezing - Gastrointestinal Gastrointestinal: Constipation. absent: Diarrhea, Nausea, Vomiting - Genitourinary Genitourinary: absent: Difficulty Urinating - Musculoskeletal Musculoskeletal: Myalgias - Integumentary Integumentary: Non-Healing Lesions - Psychiatric Psychiatric: Anxiety Critical Care Progress Note - Nutrition Nutrition: Nutrition Category Date Time Status Liquid Diet [DIET] Diets 03/29/17 Breakfast Active Assessment/Plan - Assessment and Plan (Free Text) Assessment: 51 y/o F with pmhx of ESRD, hypertension, high cholesterol, uncontrolled DMII, PAD, ischemic right leg POD#1 s/p exploratory lap with subtotal colectomy with ileostomy and R subclavian permacath. Today's Plan: Patient stable for transfer to med/surg Neuro:intact Cardio: hx htn * monitor Pulm: Cxray (03/28): ng tube extending into stomach. right central venous catheter tip extending into right atrium. moderate venous congestion with patchy consolidative changes at the left lung base. bilateral hilar prominence. small nodular density at the lateral aspect of the right midlung zone may represent prominence of the pulmonary vasculature. cardiomegly. Renal: hx ESRD, POD #1 s/p R subclavian permacath * peritoneal dialysis catheter removed * Dr. Macdonald consulted, help appreciated * dialysis yesterday Endo: hx DMII * Lantus 10 u sc hs * R ISS * accuchecks GI: s/p exploratory lap with subtotal colectomy * continue pain control with dilaudid * patient tolerating liquid diet MSK: ischemic right leg * 02/27: positive wound culture for Serratia Marcescens and Vanco resistant E. faecium * patient to have BKA with Dr. Clark once stable * Dr. Ordonez consulted, help appreciated * antibiotics as below ID: * Dr. Cronin consulted, help appreciated * Linezolid * Meropenem Prophylaxis: * DVT: 5000 u sc q12h * GI: not currently indicated <Elder Armstrong - Last Filed: 03/29/17 15:41> CCU Objective - Vital Signs / Intake & Output Intake and Output (Last 8hrs): Intake & Output 03/29/17 03/29/17 03/29/17 06:59 14:59 22:59 Intake Total 480 120 Output Total 100 70 Balance 380 50 Intake: Intake, IV Amount 480 120 Right PICC 480 120 Output: Drainage 100 70 Left Abdomen 100 70 Emesis 0 Other: # Bowel Movements 0 - Medications Active Medications: Active Medications Generic Name Dose Route Start Last Admin Trade Name Freq PRN Reason Stop Dose Admin Acetaminophen 650 mg 03/09/17 20:48 03/29/17 11:10 Tylenol 325mg Tab PO 650 mg Q6 PRN Administration Pain, Mild (1-3) Benzocaine/Menthol 1 poppy 03/27/17 16:19 Cepacol Sore Throat MT QID PRN Sore Throat Dextrose 0 ml 03/13/17 07:03 03/13/17 07:17 Dextrose 50% Inj IV 25 ml STAT PRN Administration Hyglycemia Protocol Protocol Dextrose 0 gm 03/13/17 07:03 03/26/17 07:17 Glutose 15 PO 15 gm ONCE PRN Administration Hypoglycemia Protocol Protocol Epoetin Alec 10,000 unit 03/30/17 10:00 Procrit IV TTS GUILLERMO Heparin Sodium (Porcine) 5,000 units 03/28/17 10:30 03/29/17 10:43 Heparin SC 5,000 units Q12H GUILLERMO Administration Hydromorphone HCl 1 mg 03/28/17 10:09 03/29/17 14:45 Dilaudid IVP 1 mg Q3 PRN Administration Pain, moderate (4-7) Sodium Chloride 1,000 mls @ 60 mls/hr 03/28/17 10:30 03/29/17 04:10 Sodium Chloride 0.9% IV 60 mls/hr .[id number] GUILLERMO Administration Linezolid 600 mg in 300 mls @ 200 mls/hr 03/28/17 22:00 03/29/17 10:30 Zyvox 600mg/300ml D5w IVPB 200 mls/hr Q12 [facility]MO Administration Meropenem 500 mg/ Dextrose 100 mls @ 100 mls/hr 03/29/17 09:00 03/29/17 09:30 IVPB 100 mls/hr Q24H [facility]LELRMO Administration Insulin Glargine 10 unit 03/13/17 22:15 03/28/17 22:50 Lantus SC Not Given HS [facility] Insulin Human Regular 0 unit 03/20/17 16:30 03/29/17 12:13 Novolin R SC Not Given ACHS [facility] Protocol Ondansetron HCl 4 mg 03/27/17 22:36 Zofran Inj IVP Q4 PRN Nausea/Vomiting - Patient Studies Lab Studies: Microbiology Studies 03/27/17 22:29 MRSA Culture (Admit) - Final Nose MRSA NOT DETECTED Lab Studies 03/29/17 03/29/17 03/29/17 Range/Units 11:49 08:04 08:04 WBC 15.4 H (4.8-10.8) K/uL RBC 2.93 L (3.80-5.20) Mil/uL Hgb 8.7 L (11.0-16.0) g/dL Hct 26.8 L (34.0-47.0) % MCV 91.6 (81.0-99.0) fL MCH 29.8 (27.0-31.0) pg MCHC 32.6 L (33.0-37.0) g/dL RDW 15.2 H (11.5-14.5) % Plt Count 166 (130-400) K/uL MPV 8.1 (7.2-11.7) fL Neut % (Auto) 78.0 H (50.0-75.0) % Lymph % (Auto) 8.6 L (20.0-40.0) % [place] % (Auto) 12.2 H (0.0-10.0) % Eos % (Auto) 0.7 (0.0-4.0) % Baso % (Auto) 0.5 (0.0-2.0) % Neut # 12.0 H (1.8-7.0) K/uL Lymph # 1.3 (1.0-4.3) K/uL [place] # 1.9 H (0.0-0.8) K/uL Eos # 0.1 (0.0-0.7) K/uL Baso # 0.1 (0.0-0.2) K/uL Neutrophils % (Manual) 79 H (50-75) % Lymphocytes % (Manual) 8 L (20-40) % Monocytes % (Manual) 12 H (0-10) % Basophils % (Manual) 1 (0-2) % Platelet Estimate Normal (NORMAL) Hypochromasia (manual) Slight Anisocytosis (manual) Slight Ovalocytes Slight Sodium 131 L (132-148) mmol/L Potassium 4.0 (3.6-5.2) mmol/L Chloride 96 L (98-107) mmol/L Carbon Dioxide 22 (22-30) mmol/L Anion Gap 17 (10-20) BUN 45 H (7-17) mg/dL Creatinine 7.4 H* D (0.7-1.2) mg/dL Est GFR ( Amer) 7 Est GFR (Non-Af Amer) 6 POC Glucose (mg/dL) 163 H (65-110) mg/dL Random Glucose 130 H (65-105) mg/dL Calcium 7.5 L (8.6-10.4) mg/dl Phosphorus 4.6 H (2.5-4.5) mg/dL Magnesium 2.0 (1.6-2.3) mg/dL Total Bilirubin 0.9 (0.2-1.3) mg/dL AST 37 H (14-36) U/L ALT 37 (9-52) U/L Alkaline Phosphatase 66 (38-126) U/L Total Protein 5.0 L (6.3-8.3) g/dL Albumin 2.4 L (3.5-5.0) g/dL Globulin 2.5 (2.2-3.9) gm/dL Albumin/Globulin Ratio 1.0 (1.0-2.1) 03/29/17 03/28/17 03/28/17 Range/Units 07:39 21:14 16:22 WBC (4.8-10.8) K/uL RBC (3.80-5.20) Mil/uL Hgb (11.0-16.0) g/dL Hct (34.0-47.0) % MCV (81.0-99.0) fL MCH (27.0-31.0) pg MCHC (33.0-37.0) g/dL RDW (11.5-14.5) % Plt Count (130-400) K/uL MPV (7.2-11.7) fL Neut % (Auto) (50.0-75.0) % Lymph % (Auto) (20.0-40.0) % [place] % (Auto) (0.0-10.0) % Eos % (Auto) (0.0-4.0) % Baso % (Auto) (0.0-2.0) % Neut # (1.8-7.0) K/uL Lymph # (1.0-4.3) K/uL [place] # (0.0-0.8) K/uL Eos # (0.0-0.7) K/uL Baso # (0.0-0.2) K/uL Neutrophils % (Manual) (50-75) % Lymphocytes % (Manual) (20-40) % Monocytes % (Manual) (0-10) % Basophils % (Manual) (0-2) % Platelet Estimate (NORMAL) Hypochromasia (manual) Anisocytosis (manual) Ovalocytes Sodium (132-148) mmol/L Potassium (3.6-5.2) mmol/L Chloride (98-107) mmol/L Carbon Dioxide (22-30) mmol/L Anion Gap (10-20) BUN (7-17) mg/dL Creatinine (0.7-1.2) mg/dL Est GFR ( Amer) Est GFR (Non-Af Amer) POC Glucose (mg/dL) 131 H 92 80 (65-110) mg/dL Random Glucose (65-105) mg/dL Calcium (8.6-10.4) mg/dl Phosphorus (2.5-4.5) mg/dL Magnesium (1.6-2.3) mg/dL Total Bilirubin (0.2-1.3) mg/dL AST (14-36) U/L ALT (9-52) U/L Alkaline Phosphatase (38-126) U/L Total Protein (6.3-8.3) g/dL Albumin (3.5-5.0) g/dL Globulin (2.2-3.9) gm/dL Albumin/Globulin Ratio (1.0-2.1) Laboratory Results - last 24 hr 03/28/17 03/28/17 03/29/17 16:22 21:14 07:39 WBC RBC Hgb Hct MCV MCH MCHC RDW Plt Count MPV Neut % (Auto) Lymph % (Auto) [place] % (Auto) Eos % (Auto) Baso % (Auto) Neut # Lymph # [place] # Eos # Baso # Neutrophils % (Manual) Lymphocytes % (Manual) Monocytes % (Manual) Basophils % (Manual) Platelet Estimate Hypochromasia (manual) Anisocytosis (manual) Ovalocytes Sodium Potassium Chloride Carbon Dioxide Anion Gap BUN Creatinine Est GFR ( Amer) Est GFR (Non-Af Amer) POC Glucose (mg/dL) 80 92 131 H Random Glucose Calcium Phosphorus Magnesium Total Bilirubin AST ALT Alkaline Phosphatase Total Protein Albumin Globulin Albumin/Globulin Ratio 03/29/17 03/29/17 03/29/17 08:04 08:04 11:49 WBC 15.4 H RBC 2.93 L Hgb 8.7 L Hct 26.8 L MCV 91.6 MCH 29.8 MCHC 32.6 L RDW 15.2 H Plt Count 166 MPV 8.1 Neut % (Auto) 78.0 H Lymph % (Auto) 8.6 L [place] % (Auto) 12.2 H Eos % (Auto) 0.7 Baso % (Auto) 0.5 Neut # 12.0 H Lymph # 1.3 [place] # 1.9 H Eos # 0.1 Baso # 0.1 Neutrophils % (Manual) 79 H Lymphocytes % (Manual) 8 L Monocytes % (Manual) 12 H Basophils % (Manual) 1 Platelet Estimate Normal Hypochromasia (manual) Slight Anisocytosis (manual) Slight Ovalocytes Slight Sodium 131 L Potassium 4.0 Chloride 96 L Carbon Dioxide 22 Anion Gap 17 BUN 45 H Creatinine 7.4 H* D Est GFR ( Amer) 7 Est GFR (Non-Af Amer) 6 POC Glucose (mg/dL) 163 H Random Glucose 130 H Calcium 7.5 L Phosphorus 4.6 H Magnesium 2.0 Total Bilirubin 0.9 AST 37 H ALT 37 Alkaline Phosphatase 66 Total Protein 5.0 L Albumin 2.4 L Globulin 2.5 Albumin/Globulin Ratio 1.0 Critical Care Progress Note - Nutrition Nutrition: Nutrition Category Date Time Status Liquid Diet [DIET] Diets 03/29/17 Breakfast Active Assessment/Plan - Assessment and Plan (Free Text) Plan: CCM history as noted by housestaff admits some abd. and R foot pain no sob or nausea alert, nad Neck- no jvd lungs- bilat bs heart-rr Abd-bs+, soft, dressing intact, + ileostomy Ext- R foot dressing intact Labs- reviewed A&P s/p Ex-Lap /Subtotal Colectomy/Ileostomy Right Foot ischemia PVD ESRD HTN HLD DM cont meds and Ab optimize analgesia HD as per Nephrology maintain optimal lytes Incentive spirometry DVT prophylaxis stable for floor transfer d/w housestaff
--- NOTE | 2017-03-29 16:24 | CP.PCM.PN ---
Subjective - Date & Time of Evaluation Date of Evaluation: 03/29/17 Time of Evaluation: 16:21 - Subjective Subjective: Surgery: Dr. Clark Pt seen and examined. Resting comfortably in bed. Has abd pain, responds to pain meds. No N/V. No F/C. Objective - Vital Signs/Intake and Output Vital Signs (last 24 hours): Temp Pulse Resp BP Pulse Ox 99.1 F 101 H 11 L 167/66 H 100 03/29/17 08:16 03/29/17 06:01 03/29/17 06:01 03/29/17 06:01 03/29/17 06:01 Intake and Output: 03/29/17 03/29/17 06:59 18:59 Intake Total 860 120 Output Total 160 70 Balance 700 50 - Medications Medications: Current Medications Acetaminophen (Tylenol 325mg Tab) 650 mg PO Q6 PRN PRN Reason: Pain, Mild (1-3) Last Admin: 03/29/17 11:10 Dose: 650 mg Benzocaine/Menthol (Cepacol Sore Throat) 1 poppy MT QID PRN PRN Reason: Sore Throat Dextrose (Dextrose 50% Inj) 0 ml IV STAT PRN; Protocol PRN Reason: Hyglycemia Protocol Last Admin: 03/13/17 07:17 Dose: 25 ml Dextrose (Glutose 15) 0 gm PO ONCE PRN; Protocol PRN Reason: Hypoglycemia Protocol Last Admin: 03/26/17 07:17 Dose: 15 gm Epoetin Alec (Procrit) 10,000 unit IV TTS [facility] Heparin Sodium (Porcine) (Heparin) 5,000 units SC Q12H [facility] Last Admin: 03/29/17 10:43 Dose: 5,000 units Hydromorphone HCl (Dilaudid) 1 mg IVP Q3 PRN PRN Reason: Pain, moderate (4-7) Last Admin: 03/29/17 14:45 Dose: 1 mg Sodium Chloride (Sodium Chloride 0.9%) 1,000 mls @ 60 mls/hr IV .[id number] [facility] Last Admin: 03/29/17 04:10 Dose: 60 mls/hr Linezolid (Zyvox 600mg/300ml D5w) 600 mg in 300 mls @ 200 mls/hr IVPB Q12 [facility] Last Admin: 03/29/17 10:30 Dose: 200 mls/hr Meropenem 500 mg/ Sodium (Chloride) 100 mls @ 100 mls/hr IVPB Q24H [facility] Insulin Glargine (Lantus) 10 unit SC HS GUILLERMO Last Admin: 03/28/17 22:50 Dose: Not Given Insulin Human Regular (Novolin R) 0 unit SC ACHS GUILLERMO PRN Reason: Protocol Last Admin: 03/29/17 12:13 Dose: Not Given Ondansetron HCl (Zofran Inj) 4 mg IVP Q4 PRN PRN Reason: Nausea/Vomiting - Labs Labs: 03/29/17 08:04 03/29/17 08:04 PT 11.7 SECONDS (9.7-12.2) 03/13/17 08:31 INR 1.0 03/13/17 08:31 APTT 41 SECONDS (21-34) H 03/13/17 08:31 - Constitutional Appears: Non-toxic, No Acute Distress, Chronically Ill - Head Exam Head Exam: ATRAUMATIC, NORMOCEPHALIC - Eye Exam Eye Exam: EOMI - ENT Exam ENT Exam: Mucous Membranes Moist, Normal External Ear Exam - Neck Exam Neck Exam: Full ROM - Respiratory Exam Respiratory Exam: NORMAL BREATHING PATTERN. absent: Accessory Muscle Use, Respiratory Distress - GI/Abdominal Exam GI & Abdominal Exam: Soft, Tenderness (shaniqua-incisional ). absent: Distended, Firm, Guarding, Rigid Additional comments: ileostomy pink and patent, small amount of loose stool in bag - Extremities Exam Additional comments: RLE dressing in place C/D/I - Neurological Exam Neurological Exam: Alert, Awake, Oriented x3 - Psychiatric Exam Psychiatric exam: Normal Affect, Normal Mood Assessment and Plan - Assessment and Plan (Free Text) Assessment: 51F w. dilated colon 2/2 fecal retention, s/p ex-lap w. subtotal colectomy, POD# 2 -c/w CLD, will advance as tolerated -wbc trending down, c/w abx -encourage OOB, PT, and IS use -DVT prophylaxis -d/w attending [facility] PGY3
--- NOTE | 2017-03-29 18:51 | CP.PCM.PN ---
Subjective - Date & Time of Evaluation Date of Evaluation: 03/29/17 Time of Evaluation: 08:00 - Subjective Subjective: 51F w. dilated colon 2/2 fecal retention, s/p ex-lap w. subtotal colectomy, Objective - Vital Signs/Intake and Output Vital Signs (last 24 hours): Temp Pulse Resp BP Pulse Ox 99.1 F 96 H 16 122/50 L 95 03/29/17 08:16 03/29/17 18:00 03/29/17 18:00 03/29/17 18:00 03/29/17 18:00 Intake and Output: 03/29/17 03/29/17 06:59 18:59 Intake Total 860 1260 Output Total 160 470 Balance 700 790 - Medications Medications: Current Medications Acetaminophen (Tylenol 325mg Tab) 650 mg PO Q6 PRN PRN Reason: Pain, Mild (1-3) Last Admin: 03/29/17 11:10 Dose: 650 mg Benzocaine/Menthol (Cepacol Sore Throat) 1 poppy MT QID PRN PRN Reason: Sore Throat Dextrose (Dextrose 50% Inj) 0 ml IV STAT PRN; Protocol PRN Reason: Hyglycemia Protocol Last Admin: 03/13/17 07:17 Dose: 25 ml Dextrose (Glutose 15) 0 gm PO ONCE PRN; Protocol PRN Reason: Hypoglycemia Protocol Last Admin: 03/26/17 07:17 Dose: 15 gm Epoetin Alec (Procrit) 10,000 unit IV TTS [facility] Heparin Sodium (Porcine) (Heparin) 5,000 units SC Q12H [facility] Last Admin: 03/29/17 10:43 Dose: 5,000 units Hydromorphone HCl (Dilaudid) 1 mg IVP Q3 PRN PRN Reason: Pain, moderate (4-7) Last Admin: 03/29/17 14:45 Dose: 1 mg Sodium Chloride (Sodium Chloride 0.9%) 1,000 mls @ 60 mls/hr IV .[id number] [facility] Last Admin: 03/29/17 04:10 Dose: 60 mls/hr Linezolid (Zyvox 600mg/300ml D5w) 600 mg in 300 mls @ 200 mls/hr IVPB Q12 [facility] Last Admin: 03/29/17 10:30 Dose: 200 mls/hr Meropenem 500 mg/ Sodium (Chloride) 100 mls @ 100 mls/hr IVPB Q24H [facility] Insulin Glargine (Lantus) 10 unit SC HS [facility] Last Admin: 03/28/17 22:50 Dose: Not Given Insulin Human Regular (Novolin R) 0 unit SC ACHS [facility] PRN Reason: Protocol Last Admin: 03/29/17 16:30 Dose: Not Given Ondansetron HCl (Zofran Inj) 4 mg IVP Q4 PRN PRN Reason: Nausea/Vomiting - Labs Labs: 03/29/17 08:04 03/29/17 08:04 PT 11.7 SECONDS (9.7-12.2) 03/13/17 08:31 INR 1.0 03/13/17 08:31 APTT 41 SECONDS (21-34) H 03/13/17 08:31 - Constitutional Appears: Chronically Ill - Head Exam Head Exam: NORMOCEPHALIC - Eye Exam Eye Exam: PERRL - ENT Exam ENT Exam: Mucous Membranes Dry - Neck Exam Neck Exam: absent: Lymphadenopathy - Respiratory Exam Respiratory Exam: Decreased Breath Sounds, Clear to Ausculation Bilateral - Cardiovascular Exam Cardiovascular Exam: REGULAR RHYTHM - GI/Abdominal Exam GI & Abdominal Exam: Distended Assessment and Plan (1) Gangrene of right foot Status: Acute (2) Chronic anemia Status: Acute (3) Chronic congestive heart failure Status: Acute (4) Diabetes mellitus Status: Acute (5) ESRD on peritoneal dialysis Assessment & Plan: 51F w. dilated colon 2/2 fecal retention, s/p ex-lap w. subtotal colectomy, esrd pvd- infected right tma site Status: Acute
[2017-03-29] MEDS: (Lantus) Insulin Glargine, Recombinant SC SCH (22:00)
[2017-03-30] MEDS ORDERED: DiphenhydrAMINE 50 mg/ml Inj IVP STA (00:21)
[2017-03-30] MEDS: HYDROmorphone 0.5 mg/0.5 ml ISec IVP PRN ×3 (03:36→22:33)
[2017-03-30 07:08] LABS: BASO # 0.1 K/uL (0.0-0.2); BASO % 0.6 % (0.0-2.0); EOS # 0.1 K/uL (0.0-0.7); EOS % 1.4 % (0.0-4.0); HEMATOCRIT 27.8 % (34.0-47.0); LYMPH # 1.1 K/uL (1.0-4.3); LYMPH % 10.9 % (20.0-40.0); MEAN CELL VOLUME 92.6 fL (81.0-99.0); MEAN CORPUSCULAR HEMOGLOBIN 29.8 pg (27.0-31.0); MEAN CORPUSCULAR HGB CONC 32.1 g/dL (33.0-37.0); MEAN PLATELET VOLUME 8.3 fL (7.2-11.7); MONO # 0.9 K/uL (0.0-0.8); MONO % 8.4 % (0.0-10.0); RED CELL DISTRIBUTION WIDTH 15.6 % (11.5-14.5); WHITE BLOOD COUNT 10.4 K/uL (4.8-10.8)
[2017-03-30] MEDS: HYDROmorphone 1 mg/ml ISec IVP PRN ×2 (07:28→10:47)
[2017-03-30] MEDS: (Novolin R) Insulin Human Regular 100 units/ml vial SC SCH ×3 (07:30→21:54)
[2017-03-30 08:06] LABS: POTASSIUM 3.3 mmol/L (3.6-5.2)
[2017-03-30 08:08] LABS: ALB/GLOB RATIO 0.9 (1.0-2.1); BILIRUBIN,TOTAL 0.6 mg/dL (0.2-1.3); TOTAL PROTEIN 4.3 g/dL (6.3-8.3)
[2017-03-30 08:09] LABS: CALCIUM 6.2 mg/dl (8.6-10.4); MAGNESIUM 1.7 mg/dL (1.6-2.3); PHOSPHOROUS 3.4 mg/dL (2.5-4.5)
--- NOTE | 2017-03-30 09:28 | CP.PCM.PN ---
Subjective - Date & Time of Evaluation Date of Evaluation: 03/30/17 Time of Evaluation: 09:26 - Subjective Subjective: pt seen and examined in bed, comfortable complaints of leg pain not much relief with pain medicines remains on clear diet on iv fluids no events overnight no CP, SOB, palpitations, dizziness ROS- as per HPI, other than that 10 point ROS negative Objective - Vital Signs/Intake and Output Vital Signs (last 24 hours): Temp Pulse Resp BP Pulse Ox 98.6 F 98 H 20 151/59 H 99 03/29/17 20:00 03/30/17 06:00 03/30/17 06:00 03/30/17 06:00 03/30/17 06:00 Intake and Output: 03/30/17 03/30/17 06:59 18:59 Intake Total 960 Output Total 0 Balance 960 - Medications Medications: Current Medications Acetaminophen (Tylenol 325mg Tab) 650 mg PO Q6 PRN PRN Reason: Pain, Mild (1-3) Last Admin: 03/29/17 11:10 Dose: 650 mg Benzocaine/Menthol (Cepacol Sore Throat) 1 poppy MT QID PRN PRN Reason: Sore Throat Dextrose (Dextrose 50% Inj) 0 ml IV STAT PRN; Protocol PRN Reason: Hyglycemia Protocol Last Admin: 03/13/17 07:17 Dose: 25 ml Dextrose (Glutose 15) 0 gm PO ONCE PRN; Protocol PRN Reason: Hypoglycemia Protocol Last Admin: 03/26/17 07:17 Dose: 15 gm Epoetin Alec (Procrit) 10,[address] [facility] Heparin Sodium (Porcine) (Heparin) 5,[address] [facility] Last Admin: 03/29/17 22:58 Dose: 5,000 units Hydromorphone HCl (Dilaudid) 1 mg IVP Q3 PRN PRN Reason: Pain, moderate (4-7) Last Admin: 03/30/17 07:28 Dose: 1 mg Sodium Chloride (Sodium Chloride 0.9%) 1,000 mls @ 60 mls/hr IV .[id number] [facility] Last Admin: 03/29/17 23:07 Dose: 60 mls/hr Linezolid (Zyvox 600mg/300ml D5w) 600 mg in 300 mls @ 200 mls/hr IVPB Q12 [facility] Last Admin: 03/29/17 22:00 Dose: 200 mls/hr Meropenem 500 mg/ Sodium (Chloride) 100 mls @ 100 mls/hr IVPB Q24H [facility] Potassium Chloride (Potassium Chloride 10 Meq/100 Ml) 10 meq in 100 mls @ 100 mls/hr IVPB Q1H [facility] Stop: 03/30/17 11:29 Insulin Glargine (Lantus) [address] [facility] Last Admin: 03/29/17 22:00 Dose: Not Given Insulin Human Regular (Novolin R) 0 unit SC ACHS [facility] PRN Reason: Protocol Last Admin: 03/29/17 22:00 Dose: Not Given Ondansetron HCl (Zofran Inj) 4 mg IVP Q4 PRN PRN Reason: Nausea/Vomiting - Labs Labs: 03/30/17 07:05 03/30/17 07:05 PT 11.7 SECONDS (9.7-12.2) 03/13/17 08:31 INR 1.0 03/13/17 08:31 APTT 41 SECONDS (21-34) H 03/13/17 08:31 - Constitutional Appears: Non-toxic, No Acute Distress - Head Exam Head Exam: ATRAUMATIC, NORMOCEPHALIC - Eye Exam Eye Exam: EOMI, PERRL - ENT Exam ENT Exam: Mucous Membranes Moist - Neck Exam Neck Exam: Full ROM - Respiratory Exam Respiratory Exam: Clear to Ausculation Bilateral. absent: Rhonchi, Wheezes - Cardiovascular Exam Cardiovascular Exam: REGULAR RHYTHM, +S1, +S2 - GI/Abdominal Exam GI & Abdominal Exam: Soft, Normal Bowel Sounds Additional comments: colostomy and MANPREET drain in place - Extremities Exam Extremities Exam: absent: Pedal Edema Additional comments: right TMA, foot in dressing - Neurological Exam Neurological Exam: Alert, Awake, Oriented x3 - Psychiatric Exam Psychiatric exam: Normal Affect, Normal Mood - Skin Skin Exam: Dry, Normal Color, Warm Assessment and Plan (1) Gangrene of right foot Status: Acute (2) Diabetes mellitus Status: Acute (3) ESRD on peritoneal dialysis Status: Acute (4) Foot infection Status: Acute - Assessment and Plan (Free Text) Assessment: ESRD on HD fecal impaction, s/p colostomy PVD, right foot gangrene HD today replete potassium high K in bath maintain low rate iv fluids, can cut back to 40 cc/hr pain management
--- NOTE | 2017-03-30 09:53 | CP.PCM.PN ---
Subjective - Date & Time of Evaluation Date of Evaluation: 03/28/17 Time of Evaluation: 08:00 - Subjective Subjective: Status post hemicolectomy. Patient is currently awake and responding. Complaining of more pain. Vital signs stable. No chest pain. Patient will be getting the hemodialysis today. A renal follow-up. Objective - Vital Signs/Intake and Output Vital Signs (last 24 hours): Temp Pulse Resp BP Pulse Ox 98.6 F 98 H 15 146/63 96 03/29/17 20:00 03/30/17 09:30 03/30/17 09:30 03/30/17 09:45 03/30/17 09:30 Intake and Output: 03/30/17 03/30/17 06:59 18:59 Intake Total 960 Output Total 0 Balance 960 - Medications Medications: Current Medications Acetaminophen (Tylenol 325mg Tab) 650 mg PO Q6 PRN PRN Reason: Pain, Mild (1-3) Last Admin: 03/29/17 11:10 Dose: 650 mg Benzocaine/Menthol (Cepacol Sore Throat) 1 poppy MT QID PRN PRN Reason: Sore Throat Dextrose (Dextrose 50% Inj) 0 ml IV STAT PRN; Protocol PRN Reason: Hyglycemia Protocol Last Admin: 03/13/17 07:17 Dose: 25 ml Dextrose (Glutose 15) 0 gm PO ONCE PRN; Protocol PRN Reason: Hypoglycemia Protocol Last Admin: 03/26/17 07:17 Dose: 15 gm Epoetin Alec (Procrit) 10,000 unit IV TTS [facility] BEDS AT [facility] Heparin Sodium (Porcine) (Heparin) 5,000 units SC Q12H COUNTS INCLUDE 234 BEDS AT THE [facility] Last Admin: 03/29/17 22:58 Dose: 5,000 units Hydromorphone HCl (Dilaudid) 1 mg IVP Q3 PRN PRN Reason: Pain, moderate (4-7) Last Admin: 03/30/17 07:28 Dose: 1 mg Sodium Chloride (Sodium Chloride 0.9%) 1,000 mls @ 60 mls/hr IV .[id number] COUNTS INCLUDE 234 BEDS AT THE [facility] Last Admin: 03/29/17 23:07 Dose: 60 mls/hr Linezolid (Zyvox 600mg/300ml D5w) 600 mg in 300 mls @ 200 mls/hr IVPB Q12 COUNTS INCLUDE 234 BEDS AT THE [facility] Last Admin: 03/29/17 22:00 Dose: 200 mls/hr Meropenem 500 mg/ Sodium (Chloride) 100 mls @ 100 mls/hr IVPB Q24H [facility] Potassium Chloride (Potassium Chloride 10 Meq/100 Ml) 10 meq in 100 mls @ 100 mls/hr IVPB Q1H [facility] Stop: 03/30/17 11:29 Insulin Glargine (Lantus) 10 unit SC HS [facility] Last Admin: 03/29/17 22:00 Dose: Not Given Insulin Human Regular (Novolin R) 0 unit SC ACHS [facility] PRN Reason: Protocol Last Admin: 03/29/17 22:00 Dose: Not Given Ondansetron HCl (Zofran Inj) 4 mg IVP Q4 PRN PRN Reason: Nausea/Vomiting - Labs Labs: 03/30/17 07:05 03/30/17 07:05 PT 11.7 SECONDS (9.7-12.2) 03/13/17 08:31 INR 1.0 03/13/17 08:31 APTT 41 SECONDS (21-34) H 03/13/17 08:31
--- NOTE | 2017-03-30 09:56 | CP.PCM.PN ---
Subjective - Date & Time of Evaluation Date of Evaluation: 03/29/17 Time of Evaluation: 23:45 - Subjective Subjective: [facility] Patient's brother was at bedside. Patient is more awake and responding. Less swelling noted. Ileostomy doing well. Complaining of pain in the right leg. No chest pain. Vital signs stable. Chest good air entry Regular heart sound Postoperative day 3. Labs reviewed WBC stable. Improving Assessment and recommended: 51-year-old female with a severe peripheral vascular disease. Diabetes and diabetic complications including end-stage renal disease on dialysis. Peripheral vascular disease. Macrovascular disease. Bilateral ischemic legs. Patient is having open wound on the right leg. Patient will need BKA Currently awaiting. Patient did need urgent colon resection because of the severe constipation, and also associated with a pneumatosis, impending rupture. Status post a surgery Continue the current supportive treatment. Hemodialysis. We'll follow the patient. Objective - Vital Signs/Intake and Output Vital Signs (last 24 hours): Temp Pulse Resp BP Pulse Ox 98.6 F 98 H 15 146/63 96 03/29/17 20:00 03/30/17 09:30 03/30/17 09:30 03/30/17 09:45 03/30/17 09:30 Intake and Output: 03/30/17 03/30/17 06:59 18:59 Intake Total 960 Output Total 0 Balance 960 - Medications Medications: Current Medications Acetaminophen (Tylenol 325mg Tab) 650 mg PO Q6 PRN PRN Reason: Pain, Mild (1-3) Last Admin: 03/29/17 11:10 Dose: 650 mg Benzocaine/Menthol (Cepacol Sore Throat) 1 poppy MT QID PRN PRN Reason: Sore Throat Dextrose (Dextrose 50% Inj) 0 ml IV STAT PRN; Protocol PRN Reason: Hyglycemia Protocol Last Admin: 03/13/17 07:17 Dose: 25 ml Dextrose (Glutose 15) 0 gm PO ONCE PRN; Protocol PRN Reason: Hypoglycemia Protocol Last Admin: 03/26/17 07:17 Dose: 15 gm Epoetin Alec (Procrit) 10,000 unit IV TTS [facility] Heparin Sodium (Porcine) (Heparin) 5,000 units SC Q12H [facility] Last Admin: 03/29/17 22:58 Dose: 5,000 units Hydromorphone HCl (Dilaudid) 1 mg IVP Q3 PRN PRN Reason: Pain, moderate (4-7) Last Admin: 03/30/17 07:28 Dose: 1 mg Sodium Chloride (Sodium Chloride 0.9%) 1,000 mls @ 60 mls/hr IV .[id number] [facility] Last Admin: 03/29/17 23:07 Dose: 60 mls/hr Linezolid (Zyvox 600mg/300ml D5w) 600 mg in 300 mls @ 200 mls/hr IVPB Q12 [facility] Last Admin: 03/29/17 22:00 Dose: 200 mls/hr Meropenem 500 mg/ Sodium (Chloride) 100 mls @ 100 mls/hr IVPB Q24H [facility] Potassium Chloride (Potassium Chloride 10 Meq/100 Ml) 10 meq in 100 mls @ 100 mls/hr IVPB Q1H [facility] Stop: 03/30/17 11:29 Insulin Glargine (Lantus) 10 unit SC HS [facility] Last Admin: 03/29/17 22:00 Dose: Not Given Insulin Human Regular (Novolin R) 0 unit SC ACHS [facility] PRN Reason: Protocol Last Admin: 03/29/17 22:00 Dose: Not Given Ondansetron HCl (Zofran Inj) 4 mg IVP Q4 PRN PRN Reason: Nausea/Vomiting - Labs Labs: 03/30/17 07:05 03/30/17 07:05 PT 11.7 SECONDS (9.7-12.2) 03/13/17 08:31 INR 1.0 03/13/17 08:31 APTT 41 SECONDS (21-34) H 03/13/17 08:31
--- NOTE | 2017-03-30 09:57 | CP.PCM.PN ---
Subjective - Date & Time of Evaluation Date of Evaluation: 03/30/17 Time of Evaluation: 09:56 - Subjective Subjective: Is currently still in the intensive care unit. Awaiting bed to the floor. Abdominal pain. Right leg pain. Tolerating the liquid diet. Today's labs reviewed Discussed with this patient. She will be moving to the medical floor. Continue the current treatment. We'll discuss with the surgeon about the possibility of the right leg surgery. Objective - Vital Signs/Intake and Output Vital Signs (last 24 hours): Temp Pulse Resp BP Pulse Ox 98.6 F 98 H 15 146/63 96 03/29/17 20:00 03/30/17 09:30 03/30/17 09:30 03/30/17 09:45 03/30/17 09:30 Intake and Output: 03/30/17 03/30/17 06:59 18:59 Intake Total 960 Output Total 0 Balance 960 - Medications Medications: Current Medications Acetaminophen (Tylenol 325mg Tab) 650 mg PO Q6 PRN PRN Reason: Pain, Mild (1-3) Last Admin: 03/29/17 11:10 Dose: 650 mg Benzocaine/Menthol (Cepacol Sore Throat) 1 poppy MT QID PRN PRN Reason: Sore Throat Dextrose (Dextrose 50% Inj) 0 ml IV STAT PRN; Protocol PRN Reason: Hyglycemia Protocol Last Admin: 03/13/17 07:17 Dose: 25 ml Dextrose (Glutose 15) 0 gm PO ONCE PRN; Protocol PRN Reason: Hypoglycemia Protocol Last Admin: 03/26/17 07:17 Dose: 15 gm Epoetin Alec (Procrit) 10,000 unit IV TTS [facility] Heparin Sodium (Porcine) (Heparin) 5,000 units SC Q12H [facility] Last Admin: 03/29/17 22:58 Dose: 5,000 units Hydromorphone HCl (Dilaudid) 1 mg IVP Q3 PRN PRN Reason: Pain, moderate (4-7) Last Admin: 03/30/17 07:28 Dose: 1 mg Sodium Chloride (Sodium Chloride 0.9%) 1,000 mls @ 60 mls/hr IV .[id number] [facility] Last Admin: 03/29/17 23:07 Dose: 60 mls/hr Linezolid (Zyvox 600mg/300ml D5w) 600 mg in 300 mls @ 200 mls/hr IVPB Q12 [facility] Last Admin: 03/29/17 22:00 Dose: 200 mls/hr Meropenem 500 mg/ Sodium (Chloride) 100 mls @ 100 mls/hr IVPB Q24H [facility] Potassium Chloride (Potassium Chloride 10 Meq/100 Ml) 10 meq in 100 mls @ 100 mls/hr IVPB Q1H [facility] Stop: 03/30/17 11:29 Insulin Glargine (Lantus) 10 unit SC HS [facility] Last Admin: 03/29/17 22:00 Dose: Not Given Insulin Human Regular (Novolin R) 0 unit SC ACHS [facility] PRN Reason: Protocol Last Admin: 03/29/17 22:00 Dose: Not Given Ondansetron HCl (Zofran Inj) 4 mg IVP Q4 PRN PRN Reason: Nausea/Vomiting - Labs Labs: 03/30/17 07:05 03/30/17 07:05 PT 11.7 SECONDS (9.7-12.2) 03/13/17 08:31 INR 1.0 03/13/17 08:31 APTT 41 SECONDS (21-34) H 03/13/17 08:31
[2017-03-30] MEDS ORDERED: EPOETIN ALFA 10,000 UNIT/ML ML IV SCH (10:00)
[2017-03-30] MEDS ORDERED: Oxycodone/Acetaminophen 5/325 mg Tab PO PRN (16:30)
[2017-03-30] MEDS: Meropenem 500 MG in Sodium Chloride 0.9% 100 ML IVPB SCH (18:54)
[2017-03-30] MEDS: (Lantus) Insulin Glargine, Recombinant SC SCH (21:56)
[2017-03-30] MEDS: Linezolid 600 mg in D5W 300 ml 600 MG/300 ML BAG IVPB SCH (22:35)
[2017-03-31] MEDS: HYDROmorphone 0.5 mg/0.5 ml ISec IVP PRN (05:29)
[2017-03-31] MEDS: (Novolin R) Insulin Human Regular 100 units/ml vial SC SCH ×3 (07:40→22:00)
--- NOTE | 2017-03-31 08:48 | RAD ---
Abdomen three views History: Pain. Obstruction. Comparison: 03/27/2017 Findings: Right central venous catheter tip extending into the right atrium. Additional right central venous catheter with tip extending into the mid right right heel pain. Moderate venous congestion with left basilar airspace opacity and small left pleural effusion. Heart size within normal limits. Surgical clips overlying the midline pelvis. Safety clip projects over the midline pelvis, possibly external. Catheter tubing terminates in the left lower quadrant, position uncertain whether intra or extraperitoneal. Clinical correlation. Right lower quadrant ostomy. Few distended loops of bowel within the left lower quadrant, nonspecific. Degenerative changes in the spine and bilateral hips. Radiopaque calcifications project over the left denise abdomen. Impression: Postsurgical changes.
[2017-03-31 13:55] LABS: BASO # 0.1 K/uL (0.0-0.2); BASO % 0.7 % (0.0-2.0); EOS # 0.1 K/uL (0.0-0.7); EOS % 0.6 % (0.0-4.0); HEMATOCRIT 28.7 % (34.0-47.0); LYMPH # 1.4 K/uL (1.0-4.3); LYMPH % 8.9 % (20.0-40.0); MEAN CELL VOLUME 92.3 fL (81.0-99.0); MEAN CORPUSCULAR HEMOGLOBIN 29.8 pg (27.0-31.0); MEAN CORPUSCULAR HGB CONC 32.3 g/dL (33.0-37.0); MEAN PLATELET VOLUME 8.7 fL (7.2-11.7); MONO # 1.2 K/uL (0.0-0.8); MONO % 7.7 % (0.0-10.0); NRBC % 0.1 % (0.0-2.0); PLATELET COUNT 226 K/uL (130-400); WHITE BLOOD COUNT 15.2 K/uL (4.8-10.8)
[2017-03-31 14:04] LABS: POTASSIUM 4.3 mmol/L (3.6-5.2)
[2017-03-31 14:08] LABS: CALCIUM 7.8 mg/dl (8.6-10.4)
[2017-03-31 14:28] LABS: EOSINOPHIL 2 % (0-4); NEUTROPHIL 85 % (50-75); TOTAL CELLS COUNTED 100
--- NOTE | 2017-03-31 16:46 | CP.PCM.PN ---
Subjective - Date & Time of Evaluation Date of Evaluation: 03/31/17 Time of Evaluation: 07:00 - Subjective Subjective: SURGERY PROGRESS NOTE FOR DR. SANTIAGO Patient seen and examined at bedside. She vomited 3 times yesterday and once this morning. She refused Zofran. She is also refusing antibiotics. She is currently NPO due to vomiting. Patient requesting food stating that she is hungry.She reports mild abdominal pain. Objective - Vital Signs/Intake and Output Vital Signs (last 24 hours): Temp Pulse Resp BP Pulse Ox 97.8 F 101 H 20 137/69 94 L 03/31/17 07:19 03/31/17 07:19 03/31/17 07:19 03/31/17 07:19 03/31/17 07:19 Intake and Output: 03/31/17 03/31/17 06:59 18:59 Intake Total 60 Output Total 340 Balance -280 - Medications Medications: Current Medications Acetaminophen (Tylenol 325mg Tab) 650 mg PO Q6 PRN PRN Reason: Pain, Mild (1-3) Last Admin: 03/29/17 11:10 Dose: 650 mg Benzocaine/Menthol (Cepacol Sore Throat) 1 poppy MT QID PRN PRN Reason: Sore Throat Dextrose (Dextrose 50% Inj) 0 ml IV STAT PRN; Protocol PRN Reason: Hyglycemia Protocol Last Admin: 03/13/17 07:17 Dose: 25 ml Dextrose (Glutose 15) 0 gm PO ONCE PRN; Protocol PRN Reason: Hypoglycemia Protocol Last Admin: 03/26/17 07:17 Dose: 15 gm Epoetin Alec (Procrit) 10,000 unit IV TTS [facility] Last Admin: 03/30/17 10:59 Dose: 10,000 unit Heparin Sodium (Porcine) (Heparin) 5,000 units SC Q12H [facility] Last Admin: 03/30/17 10:30 Dose: Not Given Hydromorphone HCl (Dilaudid) 0.5 mg IVP Q4 PRN PRN Reason: Pain, moderate (4-7) Last Admin: 03/31/17 05:29 Dose: 0.5 mg Linezolid (Zyvox 600mg/300ml D5w) 600 mg in 300 mls @ 200 mls/hr IVPB Q12 [facility] Last Admin: 03/30/17 22:35 Dose: 200 mls/hr Meropenem 500 mg/ Sodium (Chloride) 100 mls @ 100 mls/hr IVPB Q24H [facility] Last Admin: 03/30/17 18:54 Dose: 100 mls/hr Insulin Glargine (Lantus) 10 unit SC HS [facility] Last Admin: 03/30/17 21:56 Dose: Not Given Insulin Human Regular (Novolin R) 0 unit SC ACHS [facility] PRN Reason: Protocol Last Admin: 03/31/17 07:40 Dose: Not Given Ondansetron HCl (Zofran Inj) 4 mg IVP Q4 PRN PRN Reason: Nausea/Vomiting Oxycodone/Acetaminophen (Percocet 5/325 Mg Tab) 1 tab PO Q6H PRN PRN Reason: BREAKTHROUGH PAIN Stop: 04/02/17 16:31 - Labs Labs: 03/31/17 13:49 03/31/17 13:49 PT 11.7 SECONDS (9.7-12.2) 03/13/17 08:31 INR 1.0 03/13/17 08:31 APTT 41 SECONDS (21-34) H 03/13/17 08:31 - Constitutional Appears: Non-toxic, No Acute Distress, Chronically Ill - Respiratory Exam Respiratory Exam: NORMAL BREATHING PATTERN. absent: Respiratory Distress - Cardiovascular Exam Cardiovascular Exam: +S1, +S2 - GI/Abdominal Exam GI & Abdominal Exam: Soft, Tenderness (mild tenderness at incision site). absent: Distended, Firm, Guarding, Rigid, Rebound Additional comments: Roel drain (connected to previous PD catheter) in place with 240cc serosanguinous drainage over past 24 hours Ileostomy bag with bowel sweat, no stool Ileostomy pink with small amount sloughing - Neurological Exam Neurological Exam: Alert, Awake - Skin Skin Exam: Dry, Warm Assessment and Plan - Assessment and Plan (Free Text) Assessment: 51yo F with dilated colon secondary to fecal retention s/p Exploratory laparotomy, Subtotal colectomy with ileostomy formation POD#4 - Afebrile, VSS - NPO due to vomiting several times - Pain medication and Zofran PRN - Encouraged OOB, PT, and IS use - Heparin PPx - Will monitor for stool output from ostomy - Discussed plan with Dr. Eduardo hCin PGY-3
[2017-03-31] MEDS ORDERED: Albuterol-Ipratrop 3 mg / 0.5 (3 ml) UD INH STA (19:36)
--- NOTE | 2017-03-31 19:38 | CP.PCM.PN ---
Subjective - Date & Time of Evaluation Date of Evaluation: 03/31/17 Time of Evaluation: 19:34 - Subjective Subjective: pt has now increasing sob cough congested lungs cough with mil mucous noted ct abd done lung view showing increasing edema may need HD CXR ordered stat transfer pt to ICU I spoke to pt brother about the condition overall worsening now pt refusing antibiotics this am rt leg gangrene still no definite surgery done likely sepsis pulmonary edema possible spoke to ICU team will f/u in ICU Objective - Vital Signs/Intake and Output Vital Signs (last 24 hours): Temp Pulse Resp BP Pulse Ox 97.7 F 107 H 22 163/80 H 90 L 03/31/17 16:00 03/31/17 16:00 03/31/17 16:00 03/31/17 16:00 03/31/17 16:00 - Medications Medications: Current Medications Acetaminophen (Tylenol 325mg Tab) 650 mg PO Q6 PRN PRN Reason: Pain, Mild (1-3) Last Admin: 03/29/17 11:10 Dose: 650 mg Albuterol/Ipratropium (Duoneb 3 Mg/0.5 Mg (3 Ml) Ud) 3 ml INH RSTAT [facility] Stop: 03/31/17 19:29 Benzocaine/Menthol (Cepacol Sore Throat) 1 poppy MT QID PRN PRN Reason: Sore Throat Dextrose (Dextrose 50% Inj) 0 ml IV STAT PRN; Protocol PRN Reason: Hyglycemia Protocol Last Admin: 03/13/17 07:17 Dose: 25 ml Dextrose (Glutose 15) 0 gm PO ONCE PRN; Protocol PRN Reason: Hypoglycemia Protocol Last Admin: 03/26/17 07:17 Dose: 15 gm Epoetin Alec (Procrit) 10,000 unit IV TTS [facility] Last Admin: 03/30/17 10:59 Dose: 10,000 unit Heparin Sodium (Porcine) (Heparin) 5,000 units SC Q12H [facility] Last Admin: 03/30/17 10:30 Dose: Not Given Hydromorphone HCl (Dilaudid) 0.5 mg IVP Q4 PRN PRN Reason: Pain, moderate (4-7) Last Admin: 03/31/17 05:29 Dose: 0.5 mg Linezolid (Zyvox 600mg/300ml D5w) 600 mg in 300 mls @ 200 mls/hr IVPB Q12 [facility] Last Admin: 03/30/17 22:35 Dose: 200 mls/hr Meropenem 500 mg/ Sodium (Chloride) 100 mls @ 100 mls/hr IVPB Q24H [facility] Last Admin: 03/30/17 18:54 Dose: 100 mls/hr Insulin Glargine (Lantus) 10 unit SC HS [facility] Last Admin: 03/30/17 21:56 Dose: Not Given Insulin Human Regular (Novolin R) 0 unit SC ACHS [facility] PRN Reason: Protocol Last Admin: 03/31/17 17:20 Dose: Not Given Ondansetron HCl (Zofran Inj) 4 mg IVP Q4 PRN PRN Reason: Nausea/Vomiting Oxycodone/Acetaminophen (Percocet 5/325 Mg Tab) 1 tab PO Q6H PRN PRN Reason: BREAKTHROUGH PAIN Stop: 04/02/17 16:31 - Labs Labs: 03/31/17 13:49 03/31/17 13:49 PT 11.7 SECONDS (9.7-12.2) 03/13/17 08:31 INR 1.0 03/13/17 08:31 APTT 41 SECONDS (21-34) H 03/13/17 08:31
[2017-03-31] MEDS: Albuterol-Ipratrop 3 mg / 0.5 (3 ml) UD INH SCH (20:45)
[2017-03-31] MEDS: Linezolid 600 mg in D5W 300 ml 600 MG/300 ML BAG IVPB SCH (22:00)
[2017-03-31] MEDS: (Lantus) Insulin Glargine, Recombinant SC SCH (22:40)
[2017-04-01] MEDS: Albuterol-Ipratrop 3 mg / 0.5 (3 ml) UD INH SCH ×6 (00:45→20:38)
[2017-04-01] MEDS: Linezolid 600 mg in D5W 300 ml 600 MG/300 ML BAG IVPB SCH ×3 (02:46→22:15)
[2017-04-01] MEDS: HYDROmorphone 0.5 mg/0.5 ml ISec IVP PRN ×3 (02:53→19:07)
[2017-04-01 06:51] LABS: BASO # 0.2 K/uL (0.0-0.2); BASO % 1.1 % (0.0-2.0); EOS % 0.1 % (0.0-4.0); HEMATOCRIT 27.6 % (34.0-47.0); LYMPH # 1.1 K/uL (1.0-4.3); LYMPH % 7.6 % (20.0-40.0); MEAN CELL VOLUME 92.4 fL (81.0-99.0); MEAN CORPUSCULAR HEMOGLOBIN 29.8 pg (27.0-31.0); MEAN CORPUSCULAR HGB CONC 32.3 g/dL (33.0-37.0); MEAN PLATELET VOLUME 8.2 fL (7.2-11.7); MONO % 7.1 % (0.0-10.0); NRBC % 0.1 % (0.0-2.0); PLATELET COUNT 246 K/uL (130-400); RED CELL DISTRIBUTION WIDTH 14.8 % (11.5-14.5); WHITE BLOOD COUNT 14.3 K/uL (4.8-10.8)
[2017-04-01 07:00] LABS: POTASSIUM 3.6 mmol/L (3.6-5.2)
[2017-04-01 07:02] LABS: ALB/GLOB RATIO 0.7 (1.0-2.1); BILIRUBIN,TOTAL 0.5 mg/dL (0.2-1.3); TOTAL PROTEIN 6.1 g/dL (6.3-8.3)
[2017-04-01 07:03] LABS: CALCIUM 7.8 mg/dl (8.6-10.4)
[2017-04-01] MEDS: Meropenem 500 MG in Sodium Chloride 0.9% 100 ML IVPB SCH (08:05)
[2017-04-01] MEDS: (Novolin R) Insulin Human Regular 100 units/ml vial SC SCH ×4 (08:11→22:00)
[2017-04-01 08:48] LABS: NEUTROPHIL 88 % (50-75); NUCLEATED RED BLOOD CELL 1 % (0-0); TOTAL CELLS COUNTED 100
--- NOTE | 2017-04-01 08:50 | CP.PCM.PN ---
Subjective - Date & Time of Evaluation Date of Evaluation: 04/01/17 Time of Evaluation: 08:46 - Subjective Subjective: Patient this morning is more comfortable. Her oxygen saturation is improving. Patient received hemodialysis last night. The blood pressure is also stable at this time. Patient is feeling hungry at this time. Vital signs: 110 bpm, 98%, 18/m Chest good air entry bilaterally, regular heart sound, abdominal tenderness mild Leg ulcers noted. Right leg wound Labs reviewed WBC improving Assessment and recommendation: 51-year-old female with a history of end-stage renal disease on dialysis, hypertension, diabetes high cholesterol. Peripheral vascular disease Complicated with the ischemic ulcer, and gangrene, status post amputation. Patient still need right leg below-knee amputation. Patient also needs close monitoring for the ileostomy. Eventually she will need a revision of the ileocolon Currently receiving hemodialysis. Patient is very concerned about not getting the dialysis in time, and causing shortness of breath. Patient is also somewhat depressed at this time, and also anxious. I spoke to the family last night. Explained to the patient's brother about the overall situation. In my opinion patient condition is somewhat critical. Prognosis is guarded. We'll continue the IV antibiotic. The start the patient on full liquid diet. Objective - Vital Signs/Intake and Output Vital Signs (last 24 hours): Temp Pulse Resp BP Pulse Ox 97.7 F 112 H 13 89/49 L 98 04/01/17 01:10 04/01/17 08:18 04/01/17 08:18 04/01/17 08:18 04/01/17 08:18 Intake and Output: 04/01/17 04/01/17 06:59 18:59 Intake Total 200 100 Output Total 3120 Balance -2920 100 - Medications Medications: Current Medications Acetaminophen (Tylenol 325mg Tab) 650 mg PO Q6 PRN PRN Reason: Pain, Mild (1-3) Last Admin: 03/29/17 11:10 Dose: 650 mg Albuterol/Ipratropium (Duoneb 3 Mg/0.5 Mg (3 Ml) Ud) 3 ml INH Q4H [facility] Last Admin: 04/01/17 07:57 Dose: 3 ml Benzocaine/Menthol (Cepacol Sore Throat) 1 poppy MT QID PRN PRN Reason: Sore Throat Dextrose (Dextrose 50% Inj) 0 ml IV STAT PRN; Protocol PRN Reason: Hyglycemia Protocol Last Admin: 03/13/17 07:17 Dose: 25 ml Dextrose (Glutose 15) 0 gm PO ONCE PRN; Protocol PRN Reason: Hypoglycemia Protocol Last Admin: 03/26/17 07:17 Dose: 15 gm Epoetin Alec (Procrit) 10,000 unit IV TTS [facility] Last Admin: 03/30/17 10:59 Dose: 10,000 unit Heparin Sodium (Porcine) (Heparin) 5,000 units SC Q12H [facility] Last Admin: 03/31/17 22:30 Dose: Not Given Hydromorphone HCl (Dilaudid) 0.5 mg IVP Q4 PRN PRN Reason: Pain, moderate (4-7) Last Admin: 04/01/17 02:53 Dose: 0.5 mg Linezolid (Zyvox 600mg/300ml D5w) 600 mg in 300 mls @ 200 mls/hr IVPB Q12 [facility] Last Admin: 04/01/17 02:46 Dose: 200 mls/hr Meropenem 500 mg/ Sodium (Chloride) 100 mls @ 100 mls/hr IVPB Q24H [facility] Last Admin: 04/01/17 08:05 Dose: 100 mls/hr Insulin Glargine (Lantus) 10 unit SC HS [facility] Last Admin: 03/31/17 22:40 Dose: Not Given Insulin Human Regular (Novolin R) 0 unit SC ACHS [facility] PRN Reason: Protocol Last Admin: 04/01/17 08:11 Dose: Not Given Ondansetron HCl (Zofran Inj) 4 mg IVP Q4 PRN PRN Reason: Nausea/Vomiting Oxycodone/Acetaminophen (Percocet 5/325 Mg Tab) 1 tab PO Q6H PRN PRN Reason: BREAKTHROUGH PAIN Stop: 04/02/17 16:31 - Labs Labs: 04/01/17 06:47 04/01/17 06:47 PT 11.7 SECONDS (9.7-12.2) 03/13/17 08:31 INR 1.0 03/13/17 08:31 APTT 41 SECONDS (21-34) H 03/13/17 08:31
--- NOTE | 2017-04-01 09:28 | RAD ---
HISTORY: Congestive heart failure COMPARISON: 03/25/2017 FINDINGS: LUNGS: Moderate to severe venous congestion with patchy bibasilar airspace opacities and small bilateral pleural effusions. PLEURA: As above. CARDIOVASCULAR: Cardiomegaly. Calcification at the aortic knob. OSSEOUS STRUCTURES: Calcific tendinopathy of the right proximal humerus. VISUALIZED UPPER ABDOMEN: Normal. OTHER FINDINGS: Right PICC line with distal tip obscured by adjacent right central venous catheter. Right central venous catheter tip extends into the right atrium. IMPRESSION: Moderate to severe venous congestion with patchy bibasilar airspace opacities and small bilateral pleural effusions.
--- NOTE | 2017-04-01 12:17 | CP.PCM.PN ---
Subjective - Date & Time of Evaluation Date of Evaluation: 04/01/17 Time of Evaluation: 12:15 - Subjective Subjective: s/p emergent dialysis last PM- for CHF CXR showed new CHF pattern ileostomy functioning well on liquid diet explained to patient about fluid/ salt restriction no fevers, chills, no more nausea or vomiting Objective - Vital Signs/Intake and Output Vital Signs (last 24 hours): Temp Pulse Resp BP Pulse Ox 97.7 F 106 H 19 155/69 H 98 04/01/17 08:00 04/01/17 11:26 04/01/17 11:26 04/01/17 11:26 04/01/17 11:26 Intake and Output: 04/01/17 04/01/17 06:59 18:59 Intake Total 200 560 Output Total 3120 Balance -2920 560 - Medications Medications: Current Medications Acetaminophen (Tylenol 325mg Tab) 650 mg PO Q6 PRN PRN Reason: Pain, Mild (1-3) Last Admin: 03/29/17 11:10 Dose: 650 mg Albuterol/Ipratropium (Duoneb 3 Mg/0.5 Mg (3 Ml) Ud) 3 ml INH Q4H [facility] Last Admin: 04/01/17 07:57 Dose: 3 ml Aspirin (Ecotrin) 81 mg PO DAILY [facility] Last Admin: 04/01/17 11:26 Dose: Not Given Benzocaine/Menthol (Cepacol Sore Throat) 1 poppy MT QID PRN PRN Reason: Sore Throat Clopidogrel Bisulfate (Plavix) 75 mg PO DAILY [facility] Last Admin: 04/01/17 11:26 Dose: Not Given Dextrose (Dextrose 50% Inj) 0 ml IV STAT PRN; Protocol PRN Reason: Hyglycemia Protocol Last Admin: 03/13/17 07:17 Dose: 25 ml Dextrose (Glutose 15) 0 gm PO ONCE PRN; Protocol PRN Reason: Hypoglycemia Protocol Last Admin: 03/26/17 07:17 Dose: 15 gm Epoetin Alec (Procrit) 10,000 unit IV TTS [facility] Last Admin: 03/30/17 10:59 Dose: 10,000 unit Famotidine (Pepcid) 20 mg PO DAILY [facility] Heparin Sodium (Porcine) (Heparin) 5,000 units SC Q12H [facility] Last Admin: 04/01/17 11:22 Dose: 5,000 units Hydromorphone HCl (Dilaudid) 0.5 mg IVP Q4 PRN PRN Reason: Pain, moderate (4-7) Last Admin: 04/01/17 11:18 Dose: 0.5 mg Linezolid (Zyvox 600mg/300ml D5w) 600 mg in 300 mls @ 200 mls/hr IVPB Q12 [facility] Last Admin: 04/01/17 11:11 Dose: 200 mls/hr Meropenem 500 mg/ Sodium (Chloride) 100 mls @ 100 mls/hr IVPB Q24H [facility] Last Admin: 04/01/17 08:05 Dose: 100 mls/hr Insulin Glargine (Lantus) 10 unit SC HS [facility] Last Admin: 03/31/17 22:40 Dose: Not Given Insulin Human Regular (Novolin R) 0 unit SC ACHS [facility] PRN Reason: Protocol Last Admin: 04/01/17 11:27 Dose: Not Given Ondansetron HCl (Zofran Inj) 4 mg IVP Q4 PRN PRN Reason: Nausea/Vomiting Oxycodone/Acetaminophen (Percocet 5/325 Mg Tab) 1 tab PO Q6H PRN PRN Reason: BREAKTHROUGH PAIN Stop: 04/02/17 16:31 - Labs Labs: 04/01/17 06:47 04/01/17 06:47 PT 11.7 SECONDS (9.7-12.2) 03/13/17 08:31 INR 1.0 03/13/17 08:31 APTT 41 SECONDS (21-34) H 03/13/17 08:31 - Constitutional Appears: No Acute Distress, Chronically Ill - Head Exam Head Exam: ATRAUMATIC, NORMAL INSPECTION - Eye Exam Eye Exam: EOMI, Normal appearance - Neck Exam Neck Exam: Normal Inspection. absent: Tenderness - Respiratory Exam Respiratory Exam: Rales, NORMAL BREATHING PATTERN - Cardiovascular Exam Cardiovascular Exam: Tachycardia, +S1 - GI/Abdominal Exam GI & Abdominal Exam: Soft - Extremities Exam Extremities Exam: Calf Tenderness. absent: Tenderness - Neurological Exam Neurological Exam: Alert, CN II-XII Intact - Skin Skin Exam: Dry, Warm Assessment and Plan (1) Type 1 diabetes mellitus with diabetic nephropathy Status: Acute (2) Gangrene of right foot Status: Acute (3) End stage renal disease Status: Acute (4) Fecal impaction Status: Acute (5) CHF (congestive heart failure) Status: Acute - Assessment and Plan (Free Text) Plan: Increase UF with HD Na, fluid restriction Await right BKA
--- NOTE | 2017-04-01 13:29 | CT ---
PROCEDURE: CT Abdomen and Pelvis without Oral or IV contrast. HISTORY: n/v, abdominal fullness COMPARISON: CT abdomen and pelvis without contrast performed 03/26/17 TECHNIQUE: Contiguous axial images of the abdomen and pelvis. No oral or IV contrast administered. Coronal and Sagittal reformats generated and reviewed. Radiation dose: Total exam DLP = 594.42 MGy-cm. This CT exam was performed using one or more of the following dose reduction techniques: Automated exposure control, adjustment of the mA and/or kV according to patient size, and/or use of iterative reconstruction technique. FINDINGS: There is limited evaluation of the solid organs without the administration of IV contrast. LOWER THORAX: Small to moderate bilateral pleural effusions. Patchy bilateral airspace opacities noted bilaterally particularly surrounding the bronchovascular bundles. Small hiatal hernia/ distal esophageal wall thickening. LIVER: Lobulated appearance of the uterus presumably related to fibroids. GALLBLADDER AND BILE DUCTS: Gallbladder wall thickening versus pericholecystic edema. No calcified gallstones evident. PANCREAS: Pancreatic atrophy. SPLEEN: Unremarkable unenhanced appearance. ADRENALS: Unremarkable unenhanced appearance. KIDNEYS AND URETERS: No hydronephrosis or obstructing renal calculus. BLADDER: The urinary bladder appears unremarkable. REPRODUCTIVE: Uterus is present. APPENDIX: Not identified. BOWEL: The stomach is nondistended. Lack of oral contrast limits evaluation for bowel pathology. Right lower quadrant ostomy. The bowel loops appear within normal limits of caliber without evidence of intestinal obstruction. PERITONEUM: No significant free fluid. Small air within the right upper quadrant likely within a bowel loop, however this cannot be confirmed on limited images in the patient demonstrated evidence of pneumoperitoneum on 03/26/17. LYMPH NODES: No bulky lymphadenopathy identified. VASCULATURE: Dense atherosclerotic calcifications of the aorta and branches. No aortic aneurysm. BONES: No acute osseous abnormality is detected. OTHER FINDINGS: Percutaneous catheter with its tip coiled in the right mid abdomen. Mid abdominal incision. Surgical skin reyes. Soft tissue edema involving the right mid and lateral abdominal wall. Mesenteric fat stranding/mild edema. IMPRESSION: Small to moderate-sized bilateral pleural effusions and consolidations as above. Correlate clinically for possibility of pulmonary edema. Small air within the right upper quadrant likely within a bowel loop, however this cannot be confirmed on limited images in the patient demonstrated evidence of pneumoperitoneum on 03/26/17. Right lower quadrant ostomy. Gallbladder wall thickening versus pericholecystic edema. No calcified gallstones evident. Mid abdominal incision. Surgical skin reyes. Soft tissue edema involving the right mid and lateral abdominal wall. Mesenteric fat stranding/mild edema. Percutaneous catheter with its tip coiled in the right mid abdomen. Additional findings as above. Preliminary impression was provided by virtual radiologic.
--- NOTE | 2017-04-01 14:45 | CP.PCM.PN ---
Subjective - Date & Time of Evaluation Date of Evaluation: 04/01/17 Time of Evaluation: 14:42 - Subjective Subjective: Surgery: Dr. Clark Pt seen and examined. She was transferred to ICU overnight for SOB. When seen this AM, she states that her breathing is improved. She is tolerating CLD and states that she would like to eat more. Objective - Vital Signs/Intake and Output Vital Signs (last 24 hours): Temp Pulse Resp BP Pulse Ox 98.3 F 104 H 14 153/75 H 97 04/01/17 12:00 04/01/17 14:33 04/01/17 14:33 04/01/17 14:34 04/01/17 14:33 Intake and Output: 04/01/17 04/01/17 06:59 18:59 Intake Total 200 685 Output Total 3120 140 Balance -2920 545 - Medications Medications: Current Medications Acetaminophen (Tylenol 325mg Tab) 650 mg PO Q6 PRN PRN Reason: Pain, Mild (1-3) Last Admin: 03/29/17 11:10 Dose: 650 mg Albuterol/Ipratropium (Duoneb 3 Mg/0.5 Mg (3 Ml) Ud) 3 ml INH Q4H [facility] Last Admin: 04/01/17 13:42 Dose: 3 ml Aspirin (Ecotrin) 81 mg PO DAILY [facility] Last Admin: 04/01/17 11:26 Dose: Not Given Benzocaine/Menthol (Cepacol Sore Throat) 1 poppy MT QID PRN PRN Reason: Sore Throat Clopidogrel Bisulfate (Plavix) 75 mg PO DAILY [facility] Last Admin: 04/01/17 11:26 Dose: Not Given Dextrose (Dextrose 50% Inj) 0 ml IV STAT PRN; Protocol PRN Reason: Hyglycemia Protocol Last Admin: 03/13/17 07:17 Dose: 25 ml Dextrose (Glutose 15) 0 gm PO ONCE PRN; Protocol PRN Reason: Hypoglycemia Protocol Last Admin: 03/26/17 07:17 Dose: 15 gm Epoetin Alec (Procrit) 10,000 unit IV TTS [facility] Last Admin: 03/30/17 10:59 Dose: 10,000 unit Famotidine (Pepcid) 20 mg PO DAILY [facility] Last Admin: 04/01/17 12:22 Dose: 20 mg Heparin Sodium (Porcine) (Heparin) 5,000 units SC Q12H [facility] Last Admin: 04/01/17 11:22 Dose: 5,000 units Hydromorphone HCl (Dilaudid) 0.5 mg IVP Q4 PRN PRN Reason: Pain, moderate (4-7) Last Admin: 04/01/17 11:18 Dose: 0.5 mg Linezolid (Zyvox 600mg/300ml D5w) 600 mg in 300 mls @ 200 mls/hr IVPB Q12 [facility] Last Admin: 04/01/17 11:11 Dose: 200 mls/hr Meropenem 500 mg/ Sodium (Chloride) 100 mls @ 100 mls/hr IVPB Q24H [facility] Last Admin: 04/01/17 08:05 Dose: 100 mls/hr Insulin Glargine (Lantus) 10 unit SC HS [facility] Last Admin: 03/31/17 22:40 Dose: Not Given Insulin Human Regular (Novolin R) 0 unit SC ACHS [facility] PRN Reason: Protocol Last Admin: 04/01/17 11:27 Dose: Not Given Ondansetron HCl (Zofran Inj) 4 mg IVP Q4 PRN PRN Reason: Nausea/Vomiting Oxycodone/Acetaminophen (Percocet 5/325 Mg Tab) 1 tab PO Q6H PRN PRN Reason: BREAKTHROUGH PAIN Stop: 04/02/17 16:31 - Labs Labs: 04/01/17 06:47 04/01/17 06:47 PT 11.7 SECONDS (9.7-12.2) 03/13/17 08:31 INR 1.0 03/13/17 08:31 APTT 41 SECONDS (21-34) H 03/13/17 08:31 - Constitutional Appears: Non-toxic, Chronically Ill - Head Exam Head Exam: ATRAUMATIC, NORMOCEPHALIC - Respiratory Exam Respiratory Exam: absent: Accessory Muscle Use, Respiratory Distress - GI/Abdominal Exam GI & Abdominal Exam: Soft. absent: Distended, Firm, Guarding, Rigid, Tenderness Additional comments: stoma pink and patent w. some sloughing, small amount of liquid stool in bag - Extremities Exam Additional comments: RLE dressing in place, C/D/I - Neurological Exam Neurological Exam: Alert, Awake, Oriented x3 - Skin Skin Exam: Dry, Warm Assessment and Plan - Assessment and Plan (Free Text) Assessment: 51F s/p Exploratory laparotomy, Subtotal colectomy with ileostomy formation 2/2 to fecal retention, POD#5, and chronic RLE PVD -Diet advanced to FLD, monitor bowel fxn, ADAT -c/w abx -R BKA is on hold until pt is medically optimized -will continue to follow -d/w attending Oleg PGY3
--- NOTE | 2017-04-01 15:27 | CP.CCUPN ---
CCU Subjective - Physician Review Subjective (Free Text): Patient seen and examined at bedside and in no acute distress. Patient denies any abdominal or right foot pain. Patient says she is feeling less short of breath. Patient denies chest pain, nausea or vomiting. Patient is tolerating clear liquid diet well. CCU Objective - Vital Signs / Intake & Output Vital Signs (Last 4 hours): Vital Signs Temp Pulse Resp BP Pulse Ox 04/01/17 14:34 153/75 H 04/01/17 14:33 104 H 14 97 04/01/17 14:00 100 H 17 97 04/01/17 12:00 98.3 F 105 H 18 98 04/01/17 11:26 106 H 19 155/69 H 98 Intake and Output (Last 8hrs): Intake & Output 04/01/17 04/01/17 04/01/17 06:59 14:59 22:59 Intake Total 100 685 Output Total 2890 140 Balance -2790 545 Weight 171 lb Intake: Intake, IV Amount 400 Right PICC 400 Oral 100 285 Output: Drainage 190 140 Ileostomy 30 100 Left Abdomen 160 40 Other 2700 Other: # Voids Urine, Voided 0 # Bowel Movements 0 - Physical Exam Head: Positive for: Atraumatic, Normocephalic Respiratory/Chest: Positive for: Good Air Exchange. Negative for: Respiratory Distress, Accessory Muscle Use Cardiovascular: Positive for: Regular Rate and Rhythm, Normal S1, S2 Abdomen: Negative for: Tenderness (appropriate s/p surgery), Distention ( ileostomy ) Lower Extremity: Negative for: Normal Inspection (right foot amputation, necrotic wound wrapped in d/c/i dressing) Neurological: Positive for: GCS=15 Skin: Positive for: Warm Psychiatric: Positive for: Alert, Oriented x 3 - Medications Active Medications: Active Medications Generic Name Dose Route Start Last Admin Trade Name Freq PRN Reason Stop Dose Admin Acetaminophen 650 mg 03/09/17 20:48 03/29/17 11:10 Tylenol 325mg Tab PO 650 mg Q6 PRN Administration Pain, Mild (1-3) Albuterol/Ipratropium 3 ml 03/31/17 20:45 04/01/17 13:42 Duoneb 3 Mg/0.5 Mg (3 Ml) Ud INH 3 ml Q4H GUILLERMO Administration Aspirin 81 mg 04/01/17 10:15 04/01/17 11:26 Ecotrin PO Not Given DAILY GUILLERMO Benzocaine/Menthol 1 poppy 03/27/17 16:19 Cepacol Sore Throat MT QID PRN Sore Throat Clopidogrel Bisulfate 75 mg 04/01/17 10:15 04/01/17 11:26 Plavix PO Not Given DAILY GUILLERMO Dextrose 0 ml 03/13/17 07:03 03/13/17 07:17 Dextrose 50% Inj IV 25 ml STAT PRN Administration Hyglycemia Protocol Protocol Dextrose 0 gm 03/13/17 07:03 03/26/17 07:17 Glutose 15 PO 15 gm ONCE PRN Administration Hypoglycemia Protocol Protocol Epoetin Alec 10,000 unit 03/30/17 10:00 03/30/17 10:59 Procrit IV 10,000 unit TTS GUILLERMO Administration Famotidine 20 mg 04/01/17 11:30 04/01/17 12:22 Pepcid PO 20 mg DAILY GUILLERMO Administration Heparin Sodium (Porcine) 5,000 units 03/28/17 10:30 04/01/17 11:22 Heparin SC 5,000 units Q12H GUILLERMO Administration Hydromorphone HCl 0.5 mg 03/30/17 16:29 04/01/17 11:18 Dilaudid IVP 0.5 mg Q4 PRN Administration Pain, moderate (4-7) Linezolid 600 mg in 300 mls @ 200 mls/hr 03/28/17 22:00 04/01/17 11:11 Zyvox 600mg/300ml D5w IVPB 200 mls/hr Q12 GUILLERMO Administration Meropenem 500 mg/ Sodium 100 mls @ 100 mls/hr 03/30/17 09:00 04/01/17 08:05 Chloride IVPB 100 mls/hr Q24H GUILLERMO Administration Insulin Glargine 10 unit 03/13/17 22:15 03/31/17 22:40 Lantus SC Not Given HS GUILLERMO Insulin Human Regular 0 unit 03/20/17 16:30 04/01/17 11:27 Novolin R SC Not Given ACHS ON LICENSE OF [facility] Protocol Ondansetron HCl 4 mg 03/27/17 22:36 Zofran Inj IVP Q4 PRN Nausea/Vomiting Oxycodone/Acetaminophen 1 tab 03/30/17 16:30 Percocet 5/325 Mg Tab PO 04/02/17 16:31 Q6H PRN BREAKTHROUGH PAIN - Patient Studies Lab Studies: Microbiology Studies 03/30/17 15:30 MRSA Culture - Final Naris MRSA NOT DETECTED Lab Studies 04/01/17 04/01/17 04/01/17 Range/Units 11:24 08:10 06:47 WBC (4.8-10.8) K/uL RBC (3.80-5.20) Mil/uL Hgb (11.0-16.0) g/dL Hct (34.0-47.0) % MCV (81.0-99.0) fL MCH (27.0-31.0) pg MCHC (33.0-37.0) g/dL RDW (11.5-14.5) % Plt Count (130-400) K/uL MPV (7.2-11.7) fL Neut % (Auto) (50.0-75.0) % Lymph % (Auto) (20.0-40.0) % Dougherty % (Auto) (0.0-10.0) % Eos % (Auto) (0.0-4.0) % Baso % (Auto) (0.0-2.0) % Neut # (1.8-7.0) K/uL Lymph # (1.0-4.3) K/uL Dougherty # (0.0-0.8) K/uL Eos # (0.0-0.7) K/uL Baso # (0.0-0.2) K/uL Neutrophils % (Manual) (50-75) % Lymphocytes % (Manual) (20-40) % Monocytes % (Manual) (0-10) % Nucleated RBC % (0-0) % Platelet Estimate (NORMAL) Polychromasia Hypochromasia (manual) Sodium 133 (132-148) mmol/L Potassium 3.6 (3.6-5.2) mmol/L Chloride 95 L (98-107) mmol/L Carbon Dioxide 19 L (22-30) mmol/L Anion Gap 23 H (10-20) BUN 19 H (7-17) mg/dL Creatinine 4.2 H (0.7-1.2) mg/dL Est GFR ( Amer) 14 Est GFR (Non-Af Amer) 11 POC Glucose (mg/dL) 199 H 162 H (65-110) mg/dL Random Glucose 194 H (65-105) mg/dL Calcium 7.8 L (8.6-10.4) mg/dl Total Bilirubin 0.5 (0.2-1.3) mg/dL AST 16 (14-36) U/L ALT 31 (9-52) U/L Alkaline Phosphatase 108 (38-126) U/L Total Protein 6.1 L (6.3-8.3) g/dL Albumin 2.5 L D (3.5-5.0) g/dL Globulin 3.6 (2.2-3.9) gm/dL Albumin/Globulin Ratio 0.7 L (1.0-2.1) 04/01/17 04/01/17 03/31/17 Range/Units 06:47 06:18 20:58 WBC 14.3 H (4.8-10.8) K/uL RBC 2.99 L (3.80-5.20) Mil/uL Hgb 8.9 L (11.0-16.0) g/dL Hct 27.6 L (34.0-47.0) % MCV 92.4 (81.0-99.0) fL MCH 29.8 (27.0-31.0) pg MCHC 32.3 L (33.0-37.0) g/dL RDW 14.8 H (11.5-14.5) % Plt Count 246 (130-400) K/uL MPV 8.2 (7.2-11.7) fL Neut % (Auto) 84.1 H (50.0-75.0) % Lymph % (Auto) 7.6 L (20.0-40.0) % Dougherty % (Auto) 7.1 (0.0-10.0) % Eos % (Auto) 0.1 (0.0-4.0) % Baso % (Auto) 1.1 (0.0-2.0) % Neut # 12.0 H (1.8-7.0) K/uL Lymph # 1.1 (1.0-4.3) K/uL Dougherty # 1.0 H (0.0-0.8) K/uL Eos # 0.0 (0.0-0.7) K/uL Baso # 0.2 (0.0-0.2) K/uL Neutrophils % (Manual) 88 H (50-75) % Lymphocytes % (Manual) 8 L (20-40) % Monocytes % (Manual) 4 (0-10) % Nucleated RBC % 1 H (0-0) % Platelet Estimate Normal (NORMAL) Polychromasia Slight Hypochromasia (manual) Slight Sodium (132-148) mmol/L Potassium (3.6-5.2) mmol/L Chloride (98-107) mmol/L Carbon Dioxide (22-30) mmol/L Anion Gap (10-20) BUN (7-17) mg/dL Creatinine (0.7-1.2) mg/dL Est GFR ( Amer) Est GFR (Non-Af Amer) POC Glucose (mg/dL) 222 H 193 H (65-110) mg/dL Random Glucose (65-105) mg/dL Calcium (8.6-10.4) mg/dl Total Bilirubin (0.2-1.3) mg/dL AST (14-36) U/L ALT (9-52) U/L Alkaline Phosphatase (38-126) U/L Total Protein (6.3-8.3) g/dL Albumin (3.5-5.0) g/dL Globulin (2.2-3.9) gm/dL Albumin/Globulin Ratio (1.0-2.1) 03/31/17 Range/Units 17:06 WBC (4.8-10.8) K/uL RBC (3.80-5.20) Mil/uL Hgb (11.0-16.0) g/dL Hct (34.0-47.0) % MCV (81.0-99.0) fL MCH (27.0-31.0) pg MCHC (33.0-37.0) g/dL RDW (11.5-14.5) % Plt Count (130-400) K/uL MPV (7.2-11.7) fL Neut % (Auto) (50.0-75.0) % Lymph % (Auto) (20.0-40.0) % Dougherty % (Auto) (0.0-10.0) % Eos % (Auto) (0.0-4.0) % Baso % (Auto) (0.0-2.0) % Neut # (1.8-7.0) K/uL Lymph # (1.0-4.3) K/uL Dougherty # (0.0-0.8) K/uL Eos # (0.0-0.7) K/uL Baso # (0.0-0.2) K/uL Neutrophils % (Manual) (50-75) % Lymphocytes % (Manual) (20-40) % Monocytes % (Manual) (0-10) % Nucleated RBC % (0-0) % Platelet Estimate (NORMAL) Polychromasia Hypochromasia (manual) Sodium (132-148) mmol/L Potassium (3.6-5.2) mmol/L Chloride (98-107) mmol/L Carbon Dioxide (22-30) mmol/L Anion Gap (10-20) BUN (7-17) mg/dL Creatinine (0.7-1.2) mg/dL Est GFR ( Amer) Est GFR (Non-Af Amer) POC Glucose (mg/dL) 183 H (65-110) mg/dL Random Glucose (65-105) mg/dL Calcium (8.6-10.4) mg/dl Total Bilirubin (0.2-1.3) mg/dL AST (14-36) U/L ALT (9-52) U/L Alkaline Phosphatase (38-126) U/L Total Protein (6.3-8.3) g/dL Albumin (3.5-5.0) g/dL Globulin (2.2-3.9) gm/dL Albumin/Globulin Ratio (1.0-2.1) Laboratory Results - last 24 hr 03/31/17 03/31/17 04/01/17 17:06 20:58 06:18 WBC RBC Hgb Hct MCV MCH MCHC RDW Plt Count MPV Neut % (Auto) Lymph % (Auto) Dougherty % (Auto) Eos % (Auto) Baso % (Auto) Neut # Lymph # Dougherty # Eos # Baso # Neutrophils % (Manual) Lymphocytes % (Manual) Monocytes % (Manual) Nucleated RBC % Platelet Estimate Polychromasia Hypochromasia (manual) Sodium Potassium Chloride Carbon Dioxide Anion Gap BUN Creatinine Est GFR ( Amer) Est GFR (Non-Af Amer) POC Glucose (mg/dL) 183 H 193 H 222 H Random Glucose Calcium Total Bilirubin AST ALT Alkaline Phosphatase Total Protein Albumin Globulin Albumin/Globulin Ratio 04/01/17 04/01/17 04/01/17 06:47 06:47 08:10 WBC 14.3 H RBC 2.99 L Hgb 8.9 L Hct 27.6 L MCV 92.4 MCH 29.8 MCHC 32.3 L RDW 14.8 H Plt Count 246 MPV 8.2 Neut % (Auto) 84.1 H Lymph % (Auto) 7.6 L Dougherty % (Auto) 7.1 Eos % (Auto) 0.1 Baso % (Auto) 1.1 Neut # 12.0 H Lymph # 1.1 Dougherty # 1.0 H Eos # 0.0 Baso # 0.2 Neutrophils % (Manual) 88 H Lymphocytes % (Manual) 8 L Monocytes % (Manual) 4 Nucleated RBC % 1 H Platelet Estimate Normal Polychromasia Slight Hypochromasia (manual) Slight Sodium 133 Potassium 3.6 Chloride 95 L Carbon Dioxide 19 L Anion Gap 23 H BUN 19 H Creatinine 4.2 H Est GFR ( Amer) 14 Est GFR (Non-Af Amer) 11 POC Glucose (mg/dL) 162 H Random Glucose 194 H Calcium 7.8 L Total Bilirubin 0.5 AST 16 ALT 31 Alkaline Phosphatase 108 Total Protein 6.1 L Albumin 2.5 L D Globulin 3.6 Albumin/Globulin Ratio 0.7 L 04/01/17 11:24 WBC RBC Hgb Hct MCV MCH MCHC RDW Plt Count MPV Neut % (Auto) Lymph % (Auto) Dougherty % (Auto) Eos % (Auto) Baso % (Auto) Neut # Lymph # Dougherty # Eos # Baso # Neutrophils % (Manual) Lymphocytes % (Manual) Monocytes % (Manual) Nucleated RBC % Platelet Estimate Polychromasia Hypochromasia (manual) Sodium Potassium Chloride Carbon Dioxide Anion Gap BUN Creatinine Est GFR ( Amer) Est GFR (Non-Af Amer) POC Glucose (mg/dL) 199 H Random Glucose Calcium Total Bilirubin AST ALT Alkaline Phosphatase Total Protein Albumin Globulin Albumin/Globulin Ratio Fingerstick Blood Sugar Results: 199 Review of Systems - Constitutional Constitutional: absent: Fever, Chills, Sweats - Cardiovascular Cardiovascular: absent: Chest Pain, Diaphoresis, Dyspnea, Edema - Respiratory Respiratory: absent: Dyspnea, Dyspnea on Exertion, Wheezing, Stridor - Gastrointestinal Gastrointestinal: absent: Abdominal Pain, Nausea, Vomiting Critical Care Progress Note - Nutrition Nutrition: Nutrition Category Date Time Status Liquid Diet [DIET] Diets 04/01/17 Breakfast Active Assessment/Plan - Assessment and Plan (Free Text) Assessment: 51 y/o F with pmhx of ESRD, hypertension, high cholesterol, uncontrolled DMII, PAD, ischemic right leg POD#5 s/p exploratory lap with subtotal colectomy with ileostomy and R subclavian permacath readmitted to ICU for respiratory distress. Neuro:intact Cardio: hx htn, CHF * s/p emergent dialysis for CHF on night of 03/31 monitor Plavix 75mg po daily Pulm: Duonebs Cxray: moderate to severe venous congestion with pathcy bibasilar airspace opacities and small bilateral pleural effusions Renal: hx ESRD, POD #5 s/p R subclavian permacath Dr. Macdonald consulted, help appreciated emergent dialysis yesterday explained fluid/ salt restriction as per Dr. Macdonald Endo: hx DMII Lantus 10 u sc hs R ISS accuchecks GI: s/p exploratory lap POD#5 with subtotal colectomy advanced to CLD ileostomy functioning well MSK: ischemic right leg 02/27: positive wound culture for Serratia Marcescens and Vanco resistant E. faecium patient to have BKA with Dr. Clark once stable Dr. Ordonez consulted, help appreciated antibiotics as below Heme: Procrit ID: Dr. Cronin consulted, help appreciated Linezolid Meropenem Prophylaxis: DVT: Heparin 5000 u sc q12h GI: not currently indicated Diet advanced to full liquid diet
[2017-04-01] MEDS: (Lantus) Insulin Glargine, Recombinant SC SCH ×2 (22:15)
[2017-04-02] MEDS: HYDROmorphone 0.5 mg/0.5 ml ISec IVP PRN ×5 (01:50→22:25)
[2017-04-02] MEDS: Albuterol-Ipratrop 3 mg / 0.5 (3 ml) UD INH SCH ×6 (03:38→20:36)
[2017-04-02 06:30] LABS: BASO # 0.1 K/uL (0.0-0.2); BASO % 0.5 % (0.0-2.0); EOS # 0.1 K/uL (0.0-0.7); EOS % 1.1 % (0.0-4.0); HEMATOCRIT 28.7 % (34.0-47.0); LYMPH # 1.2 K/uL (1.0-4.3); LYMPH % 10.4 % (20.0-40.0); MEAN CORPUSCULAR HGB CONC 32.6 g/dL (33.0-37.0); MEAN PLATELET VOLUME 7.9 fL (7.2-11.7); MONO % 8.8 % (0.0-10.0); RED CELL DISTRIBUTION WIDTH 15.3 % (11.5-14.5); WHITE BLOOD COUNT 11.3 K/uL (4.8-10.8)
[2017-04-02 06:55] LABS: POTASSIUM 3.5 mmol/L (3.6-5.2)
[2017-04-02 06:57] LABS: BILIRUBIN,TOTAL 0.5 mg/dL (0.2-1.3); PHOSPHOROUS 3.7 mg/dL (2.5-4.5)
[2017-04-02 06:58] LABS: TOTAL PROTEIN 5.9 g/dL (6.3-8.3)
[2017-04-02 07:03] LABS: ALB/GLOB RATIO 0.7 (1.0-2.1)
[2017-04-02] MEDS: Multivitamin Vitamin B Complex (Nephro-Vite) Tab PO SCH (08:41)
[2017-04-02] MEDS: (Novolin R) Insulin Human Regular 100 units/ml vial SC SCH ×5 (08:58→22:00)
--- NOTE | 2017-04-02 12:38 | CP.PCM.PN ---
Subjective - Date & Time of Evaluation Date of Evaluation: 04/02/17 Time of Evaluation: 07:00 - Subjective Subjective: SURGERY PROGRESS NOTE FOR DR. SANTIAGO Patient seen and examined at bedside in the ICU. She states that she is doing well. She reports being hungry and is requesting regular food. She vomited once yesterday but nothing since then. Denies nausea currently. She reports mild abdominal pain. There is stool output into the ileostomy. Objective - Vital Signs/Intake and Output Vital Signs (last 24 hours): Temp Pulse Resp BP Pulse Ox 98.3 F 98 H 25 H 152/78 H 13 L 04/02/17 09:40 04/02/17 12:05 04/02/17 10:10 04/02/17 12:05 04/02/17 10:10 Intake and Output: 04/02/17 04/02/17 06:59 18:59 Intake Total 800 0 Output Total 190 Balance 610 0 - Medications Medications: Current Medications Acetaminophen (Tylenol 325mg Tab) 650 mg PO Q6 PRN PRN Reason: Pain, Mild (1-3) Last Admin: 04/01/17 22:15 Dose: 650 mg Albuterol/Ipratropium (Duoneb 3 Mg/0.5 Mg (3 Ml) Ud) 3 ml INH RQ4 GUILLERMO Last Admin: 04/02/17 12:10 Dose: Not Given Aspirin (Ecotrin) 81 mg PO DAILY [facility] Last Admin: 04/02/17 10:34 Dose: 81 mg Benzocaine/Menthol (Cepacol Sore Throat) 1 poppy MT QID PRN PRN Reason: Sore Throat Carvedilol (Coreg) 6.25 mg PO BID [facility] Last Admin: 04/02/17 10:33 Dose: Not Given Clopidogrel Bisulfate (Plavix) 75 mg PO DAILY [facility] Last Admin: 04/01/17 11:26 Dose: Not Given Dextrose (Dextrose 50% Inj) 0 ml IV STAT PRN; Protocol PRN Reason: Hyglycemia Protocol Last Admin: 03/13/17 07:17 Dose: 25 ml Dextrose (Glutose 15) 0 gm PO ONCE PRN; Protocol PRN Reason: Hypoglycemia Protocol Last Admin: 03/26/17 07:17 Dose: 15 gm Epoetin Alec (Procrit) 10,000 unit IV TTS [facility] Famotidine (Pepcid) 20 mg PO DAILY [facility] Last Admin: 04/02/17 10:35 Dose: 20 mg Heparin Sodium (Porcine) (Heparin) 5,000 units SC Q12H [facility] Last Admin: 04/02/17 10:32 Dose: 5,000 units Hydromorphone HCl (Dilaudid) 0.5 mg IVP Q4 PRN PRN Reason: Pain, moderate (4-7) Last Admin: 04/02/17 06:20 Dose: 0.5 mg Linezolid (Zyvox 600mg/300ml D5w) 600 mg in 300 mls @ 200 mls/hr IVPB Q12 [facility] Last Admin: 04/01/17 22:15 Dose: 200 mls/hr Meropenem 500 mg/ Dextrose 100 mls @ 100 mls/hr IVPB Q24H [facility] Insulin Glargine (Lantus) 10 unit SC HS [facility] Last Admin: 04/01/17 22:15 Dose: Not Given Insulin Human Regular (Novolin R) 0 unit SC ACHS [facility] PRN Reason: Protocol Last Admin: 04/02/17 11:28 Dose: Not Given Ondansetron HCl (Zofran Inj) 4 mg IVP Q4 PRN PRN Reason: Nausea/Vomiting Oxycodone/Acetaminophen (Percocet 5/325 Mg Tab) 1 tab PO Q6H PRN PRN Reason: BREAKTHROUGH PAIN Stop: 04/02/17 16:31 Last Admin: 04/01/17 16:18 Dose: 1 tab Vitamin B Complex/Vit C/Folic Acid (Nephro-Cony) 1 tab PO 0800 [facility] Last Admin: 04/02/17 08:41 Dose: 1 tab - Labs Labs: 04/02/17 06:20 04/02/17 06:20 PT 11.7 SECONDS (9.7-12.2) 03/13/17 08:31 INR 1.0 03/13/17 08:31 APTT 41 SECONDS (21-34) H 03/13/17 08:31 - Constitutional Appears: Non-toxic, No Acute Distress - Head Exam Head Exam: ATRAUMATIC, NORMAL INSPECTION - Eye Exam Eye Exam: EOMI, Normal appearance - Respiratory Exam Respiratory Exam: NORMAL BREATHING PATTERN. absent: Respiratory Distress - Cardiovascular Exam Cardiovascular Exam: +S1, +S2 - GI/Abdominal Exam GI & Abdominal Exam: Distended (mild), Soft. 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 Eduardo Chin PGY-3
--- NOTE | 2017-04-02 12:39 | CP.PCM.PN ---
Subjective - Date & Time of Evaluation Date of Evaluation: 04/02/17 Time of Evaluation: 12:37 - Subjective Subjective: pt seen and examined undergoing hd, uf 2.5L estimated c/o severe abd pain and rt leg pain colostomy Objective - Vital Signs/Intake and Output Vital Signs (last 24 hours): Temp Pulse Resp BP Pulse Ox 98.3 F 98 H 25 H 152/78 H 13 L 04/02/17 09:40 04/02/17 12:05 04/02/17 10:10 04/02/17 12:05 04/02/17 10:10 Intake and Output: 04/02/17 04/02/17 06:59 18:59 Intake Total 800 0 Output Total 190 Balance 610 0 - Medications Medications: Current Medications Acetaminophen (Tylenol 325mg Tab) 650 mg PO Q6 PRN PRN Reason: Pain, Mild (1-3) Last Admin: 04/01/17 22:15 Dose: 650 mg Albuterol/Ipratropium (Duoneb 3 Mg/0.5 Mg (3 Ml) Ud) 3 ml INH RQ4 GUILLERMO Last Admin: 04/02/17 12:10 Dose: Not Given Aspirin (Ecotrin) 81 mg PO DAILY [facility] Last Admin: 04/02/17 10:34 Dose: 81 mg Benzocaine/Menthol (Cepacol Sore Throat) 1 poppy MT QID PRN PRN Reason: Sore Throat Carvedilol (Coreg) 6.25 mg PO BID [facility] Last Admin: 04/02/17 10:33 Dose: Not Given Clopidogrel Bisulfate (Plavix) 75 mg PO DAILY [facility] Last Admin: 04/01/17 11:26 Dose: Not Given Dextrose (Dextrose 50% Inj) 0 ml IV STAT PRN; Protocol PRN Reason: Hyglycemia Protocol Last Admin: 03/13/17 07:17 Dose: 25 ml Dextrose (Glutose 15) 0 gm PO ONCE PRN; Protocol PRN Reason: Hypoglycemia Protocol Last Admin: 03/26/17 07:17 Dose: 15 gm Epoetin Alec (Procrit) 10,000 unit IV TTS [facility] Famotidine (Pepcid) 20 mg PO DAILY [facility] Last Admin: 04/02/17 10:35 Dose: 20 mg Heparin Sodium (Porcine) (Heparin) 5,000 units SC Q12H [facility] Last Admin: 04/02/17 10:32 Dose: 5,000 units Hydromorphone HCl (Dilaudid) 0.5 mg IVP Q4 PRN PRN Reason: Pain, moderate (4-7) Last Admin: 04/02/17 06:20 Dose: 0.5 mg Linezolid (Zyvox 600mg/300ml D5w) 600 mg in 300 mls @ 200 mls/hr IVPB Q12 [facility] Last Admin: 04/01/17 22:15 Dose: 200 mls/hr Meropenem 500 mg/ Dextrose 100 mls @ 100 mls/hr IVPB Q24H [facility] Insulin Glargine (Lantus) 10 unit SC HS [facility] Last Admin: 04/01/17 22:15 Dose: Not Given Insulin Human Regular (Novolin R) 0 unit SC ACHS GUILLERMO PRN Reason: Protocol Last Admin: 04/02/17 11:28 Dose: Not Given Ondansetron HCl (Zofran Inj) 4 mg IVP Q4 PRN PRN Reason: Nausea/Vomiting Oxycodone/Acetaminophen (Percocet 5/325 Mg Tab) 1 tab PO Q6H PRN PRN Reason: BREAKTHROUGH PAIN Stop: 04/02/17 16:31 Last Admin: 04/01/17 16:18 Dose: 1 tab Vitamin B Complex/Vit C/Folic Acid (Nephro-Cony) 1 tab PO 0800 [facility] Last Admin: 04/02/17 08:41 Dose: 1 tab - Labs Labs: 04/02/17 06:20 04/02/17 06:20 PT 11.7 SECONDS (9.7-12.2) 03/13/17 08:31 INR 1.0 03/13/17 08:31 APTT 41 SECONDS (21-34) H 03/13/17 08:31 - Constitutional Appears: Non-toxic, No Acute Distress, Chronically Ill - Head Exam Head Exam: NORMAL INSPECTION - Eye Exam Eye Exam: Normal appearance - ENT Exam ENT Exam: Mucous Membranes Moist, Normal Exam - Neck Exam Neck Exam: Normal Inspection - Respiratory Exam Respiratory Exam: Decreased Breath Sounds, NORMAL BREATHING PATTERN - Cardiovascular Exam Cardiovascular Exam: REGULAR RHYTHM, RRR - GI/Abdominal Exam GI & Abdominal Exam: Distended (pt not allowing palpation), Soft - Back Exam Back Exam: NORMAL INSPECTION (rt leg tender. no edema) Assessment and Plan (1) Gangrene of right foot Status: Acute (2) Anemia Status: Acute (3) Diabetes mellitus Status: Acute (4) ESRD on peritoneal dialysis Status: Acute (5) Hyperkalemia Status: Acute (6) Hypertension Status: Acute - Assessment and Plan (Free Text) Assessment: maintain hd tts schedule, 3K bath pain control
[2017-04-02] MEDS: Meropenem 500 MG in Dextrose 5% In Water 100 ML IVPB SCH (12:44)
[2017-04-02] MEDS ORDERED: Potassium Chloride 20 mEq ER Tab PO ONE (12:45)
[2017-04-02] MEDS: Linezolid 600 mg in D5W 300 ml 600 MG/300 ML BAG IVPB SCH ×4 (12:45→22:20)
[2017-04-02] MEDS: EPOETIN ALFA 10,000 UNIT/ML ML IV SCH (12:47)
--- NOTE | 2017-04-02 13:33 | CP.CCUPN ---
<Audrey Garcia Michael - Last Filed: 04/02/17 13:31> CCU Subjective - Physician Review Subjective (Free Text): Patient seen and examined at bedside and in no acute distress. Patient undergoing hemodialysis. Patient complaining of abdominal and right lower extremity pain. CCU Objective - Vital Signs / Intake & Output Vital Signs (Last 4 hours): Vital Signs Temp Pulse Pulse Resp BP BP Pulse Ox 04/02/17 12:35 105 H 16 152/48 H 100 04/02/17 12:20 102 H 138/69 04/02/17 12:05 98 H 152/78 H 04/02/17 11:50 100 H 97/59 L 04/02/17 11:20 107 H 120/64 04/02/17 10:50 98 H 150/82 04/02/17 10:35 101 H 159/84 H 04/02/17 10:10 97 H 25 H 168/82 H 13 L 04/02/17 09:55 92 H 13 167/81 H 98 04/02/17 09:40 98.3 F 93 H 13 171/80 H 97 Intake and Output (Last 8hrs): Intake & Output 04/01/17 04/02/17 04/02/17 22:59 06:59 14:59 Intake Total 650 350 0 Output Total 470 90 Balance 180 260 0 Intake: Intake, IV Amount 150 150 Right PICC 150 150 Oral 500 200 0 Output: Drainage 370 40 Ileostomy 350 Left Abdomen 20 40 Urine 0 Urine, Voided 0 Stool 100 50 - Physical Exam Head: Positive for: Atraumatic, Normocephalic Respiratory/Chest: Positive for: Good Air Exchange. Negative for: Respiratory Distress, Accessory Muscle Use Cardiovascular: Positive for: Regular Rate and Rhythm, Normal S1, S2 Abdomen: Negative for: Tenderness (appropriate s/p surgery), Distention ( ileostomy ) Lower Extremity: Negative for: Normal Inspection (right foot amputation, necrotic wound wrapped in d/c/i dressing) Neurological: Positive for: GCS=15 Skin: Positive for: Warm Psychiatric: Positive for: Alert, Oriented x 3 - Medications Active Medications: Active Medications Generic Name Dose Route Start Last Admin Trade Name Freq PRN Reason Stop Dose Admin Acetaminophen 650 mg 03/09/17 20:48 04/01/17 22:15 Tylenol 325mg Tab PO 650 mg Q6 PRN Administration Pain, Mild (1-3) Albuterol/Ipratropium 3 ml 04/01/17 20:30 04/02/17 12:10 Duoneb 3 Mg/0.5 Mg (3 Ml) Ud INH Not Given RQ4 GUILLERMO Aspirin 81 mg 04/01/17 10:15 04/02/17 10:34 Ecotrin PO 81 mg DAILY GUILLERMO Administration Benzocaine/Menthol 1 poppy 03/27/17 16:19 Cepacol Sore Throat MT QID PRN Sore Throat Carvedilol 6.25 mg 04/01/17 19:30 04/02/17 10:33 Coreg PO Not Given BID GUILLERMO Clopidogrel Bisulfate 75 mg 04/01/17 10:15 04/02/17 10:30 Plavix PO Not Given DAILY GUILLERMO Dextrose 0 ml 03/13/17 07:03 03/13/17 07:17 Dextrose 50% Inj IV 25 ml STAT PRN Administration Hyglycemia Protocol Protocol Dextrose 0 gm 03/13/17 07:03 03/26/17 07:17 Glutose 15 PO 15 gm ONCE PRN Administration Hypoglycemia Protocol Protocol Epoetin Alec 10,000 unit 04/02/17 12:15 04/02/17 12:47 Procrit IV 10,000 unit TTS GUILLERMO Administration Famotidine 20 mg 04/01/17 11:30 04/02/17 10:35 Pepcid PO 20 mg DAILY GUILLERMO Administration Heparin Sodium (Porcine) 5,000 units 03/28/17 10:30 04/02/17 10:32 Heparin SC 5,000 units Q12H GUILLERMO Administration Hydromorphone HCl 0.5 mg 03/30/17 16:29 04/02/17 13:11 Dilaudid IVP 0.5 mg Q4 PRN Administration Pain, moderate (4-7) Linezolid 600 mg in 300 mls @ 200 mls/hr 03/28/17 22:00 04/02/17 12:48 Zyvox 600mg/300ml D5w IVPB 200 mls/hr Q12 GUILLERMO Administration Meropenem 500 mg/ Dextrose 100 mls @ 100 mls/hr 04/02/17 09:00 04/02/17 12:44 IVPB 100 mls/hr Q24H GUILLERMO Administration Insulin Glargine 10 unit 03/13/17 22:15 04/01/17 22:15 Lantus SC Not Given HS [facility] Insulin Human Regular 0 unit 03/20/17 16:30 04/02/17 11:28 Novolin R SC Not Given ACHS [facility] Protocol Ondansetron HCl 4 mg 03/27/17 22:36 Zofran Inj IVP Q4 PRN Nausea/Vomiting Oxycodone/Acetaminophen 1 tab 03/30/17 16:30 04/01/17 16:18 Percocet 5/325 Mg Tab PO 04/02/17 16:31 1 tab Q6H PRN Administration BREAKTHROUGH PAIN Vitamin B Complex/Vit C/Folic Acid 1 tab 04/02/17 08:00 04/02/17 08:41 Nephro-Cony PO 1 tab 0800 GUILLERMO Administration - Patient Studies Lab Studies: Microbiology Studies 04/01/17 03:33 MRSA Culture (Admit) - Final Naris MRSA NOT DETECTED Lab Studies 04/02/17 04/02/17 04/02/17 Range/Units 11:19 07:29 06:20 WBC (4.8-10.8) K/uL RBC (3.80-5.20) Mil/uL Hgb (11.0-16.0) g/dL Hct (34.0-47.0) % MCV (81.0-99.0) fL MCH (27.0-31.0) pg MCHC (33.0-37.0) g/dL RDW (11.5-14.5) % Plt Count (130-400) K/uL MPV (7.2-11.7) fL Neut % (Auto) (50.0-75.0) % Lymph % (Auto) (20.0-40.0) % Grimes % (Auto) (0.0-10.0) % Eos % (Auto) (0.0-4.0) % Baso % (Auto) (0.0-2.0) % Neut # (1.8-7.0) K/uL Lymph # (1.0-4.3) K/uL Grimes # (0.0-0.8) K/uL Eos # (0.0-0.7) K/uL Baso # (0.0-0.2) K/uL Sodium (132-148) mmol/L Potassium (3.6-5.2) mmol/L Chloride (98-107) mmol/L Carbon Dioxide (22-30) mmol/L Anion Gap (10-20) BUN (7-17) mg/dL Creatinine (0.7-1.2) mg/dL Est GFR ( Amer) Est GFR (Non-Af Amer) POC Glucose (mg/dL) 152 H 189 H (65-110) mg/dL Random Glucose (65-105) mg/dL Calcium (8.6-10.4) mg/dl Phosphorus (2.5-4.5) mg/dL Magnesium (1.6-2.3) mg/dL % Saturation 23 (20-55) Ferritin ng/mL Total Bilirubin (0.2-1.3) mg/dL AST (14-36) U/L ALT (9-52) U/L Alkaline Phosphatase (38-126) U/L Total Protein (6.3-8.3) g/dL Albumin (3.5-5.0) g/dL Globulin (2.2-3.9) gm/dL Albumin/Globulin Ratio (1.0-2.1) 04/02/17 04/02/17 04/02/17 Range/Units 06:20 06:20 06:20 WBC 11.3 H (4.8-10.8) K/uL RBC 3.11 L (3.80-5.20) Mil/uL Hgb 9.4 L (11.0-16.0) g/dL Hct 28.7 L (34.0-47.0) % MCV 92.0 (81.0-99.0) fL MCH 30.0 (27.0-31.0) pg MCHC 32.6 L (33.0-37.0) g/dL RDW 15.3 H (11.5-14.5) % Plt Count 265 (130-400) K/uL MPV 7.9 (7.2-11.7) fL Neut % (Auto) 79.2 H (50.0-75.0) % Lymph % (Auto) 10.4 L (20.0-40.0) % Grimes % (Auto) 8.8 (0.0-10.0) % Eos % (Auto) 1.1 (0.0-4.0) % Baso % (Auto) 0.5 (0.0-2.0) % Neut # 9.0 H (1.8-7.0) K/uL Lymph # 1.2 (1.0-4.3) K/uL Grimes # 1.0 H (0.0-0.8) K/uL Eos # 0.1 (0.0-0.7) K/uL Baso # 0.1 (0.0-0.2) K/uL Sodium 132 (132-148) mmol/L Potassium 3.5 L (3.6-5.2) mmol/L Chloride 93 L (98-107) mmol/L Carbon Dioxide 24 (22-30) mmol/L Anion Gap 19 (10-20) BUN 25 H (7-17) mg/dL Creatinine 5.9 H (0.7-1.2) mg/dL Est GFR ( Amer) 9 Est GFR (Non-Af Amer) 8 POC Glucose (mg/dL) (65-110) mg/dL Random Glucose 148 H (65-105) mg/dL Calcium 8.0 L (8.6-10.4) mg/dl Phosphorus 3.7 (2.5-4.5) mg/dL Magnesium 2.0 (1.6-2.3) mg/dL % Saturation (20-55) Ferritin 1160.0 ng/mL Total Bilirubin 0.5 (0.2-1.3) mg/dL AST 12 L D (14-36) U/L ALT 32 (9-52) U/L Alkaline Phosphatase 102 (38-126) U/L Total Protein 5.9 L (6.3-8.3) g/dL Albumin 2.5 L (3.5-5.0) g/dL Globulin 3.4 (2.2-3.9) gm/dL Albumin/Globulin Ratio 0.7 L (1.0-2.1) 04/01/17 04/01/17 Range/Units 21:09 16:06 WBC (4.8-10.8) K/uL RBC (3.80-5.20) Mil/uL Hgb (11.0-16.0) g/dL Hct (34.0-47.0) % MCV (81.0-99.0) fL MCH (27.0-31.0) pg MCHC (33.0-37.0) g/dL RDW (11.5-14.5) % Plt Count (130-400) K/uL MPV (7.2-11.7) fL Neut % (Auto) (50.0-75.0) % Lymph % (Auto) (20.0-40.0) % Grimes % (Auto) (0.0-10.0) % Eos % (Auto) (0.0-4.0) % Baso % (Auto) (0.0-2.0) % Neut # (1.8-7.0) K/uL Lymph # (1.0-4.3) K/uL Grimes # (0.0-0.8) K/uL Eos # (0.0-0.7) K/uL Baso # (0.0-0.2) K/uL Sodium (132-148) mmol/L Potassium (3.6-5.2) mmol/L Chloride (98-107) mmol/L Carbon Dioxide (22-30) mmol/L Anion Gap (10-20) BUN (7-17) mg/dL Creatinine (0.7-1.2) mg/dL Est GFR ( Amer) Est GFR (Non-Af Amer) POC Glucose (mg/dL) 217 H 305 H (65-110) mg/dL Random Glucose (65-105) mg/dL Calcium (8.6-10.4) mg/dl Phosphorus (2.5-4.5) mg/dL Magnesium (1.6-2.3) mg/dL % Saturation (20-55) Ferritin ng/mL Total Bilirubin (0.2-1.3) mg/dL AST (14-36) U/L ALT (9-52) U/L Alkaline Phosphatase (38-126) U/L Total Protein (6.3-8.3) g/dL Albumin (3.5-5.0) g/dL Globulin (2.2-3.9) gm/dL Albumin/Globulin Ratio (1.0-2.1) Laboratory Results - last 24 hr 04/01/17 04/01/17 04/02/17 16:06 21:09 06:20 WBC 11.3 H RBC 3.11 L Hgb 9.4 L Hct 28.7 L MCV 92.0 MCH 30.0 MCHC 32.6 L RDW 15.3 H Plt Count 265 MPV 7.9 Neut % (Auto) 79.2 H Lymph % (Auto) 10.4 L Grimes % (Auto) 8.8 Eos % (Auto) 1.1 Baso % (Auto) 0.5 Neut # 9.0 H Lymph # 1.2 Grimes # 1.0 H Eos # 0.1 Baso # 0.1 Sodium Potassium Chloride Carbon Dioxide Anion Gap BUN Creatinine Est GFR ( Amer) Est GFR (Non-Af Amer) POC Glucose (mg/dL) 305 H 217 H Random Glucose Calcium Phosphorus Magnesium % Saturation Ferritin Total Bilirubin AST ALT Alkaline Phosphatase Total Protein Albumin Globulin Albumin/Globulin Ratio 04/02/17 04/02/17 04/02/17 06:20 06:20 06:20 WBC RBC Hgb Hct MCV MCH MCHC RDW Plt Count MPV Neut % (Auto) Lymph % (Auto) Grimes % (Auto) Eos % (Auto) Baso % (Auto) Neut # Lymph # Grimes # Eos # Baso # Sodium 132 Potassium 3.5 L Chloride 93 L Carbon Dioxide 24 Anion Gap 19 BUN 25 H Creatinine 5.9 H Est GFR ( Amer) 9 Est GFR (Non-Af Amer) 8 POC Glucose (mg/dL) Random Glucose 148 H Calcium 8.0 L Phosphorus 3.7 Magnesium 2.0 % Saturation 23 Ferritin 1160.0 Total Bilirubin 0.5 AST 12 L D ALT 32 Alkaline Phosphatase 102 Total Protein 5.9 L Albumin 2.5 L Globulin 3.4 Albumin/Globulin Ratio 0.7 L 04/02/17 04/02/17 07:29 11:19 WBC RBC Hgb Hct MCV MCH MCHC RDW Plt Count MPV Neut % (Auto) Lymph % (Auto) Grimes % (Auto) Eos % (Auto) Baso % (Auto) Neut # Lymph # Grimes # Eos # Baso # Sodium Potassium Chloride Carbon Dioxide Anion Gap BUN Creatinine Est GFR ( Amer) Est GFR (Non-Af Amer) POC Glucose (mg/dL) 189 H 152 H Random Glucose Calcium Phosphorus Magnesium % Saturation Ferritin Total Bilirubin AST ALT Alkaline Phosphatase Total Protein Albumin Globulin Albumin/Globulin Ratio Fingerstick Blood Sugar Results: 152 Review of Systems - Constitutional Constitutional: absent: Fever, Chills, Sweats - Cardiovascular Cardiovascular: absent: Dyspnea - Respiratory Respiratory: absent: Cough, Wheezing - Gastrointestinal Gastrointestinal: Abdominal Pain - Musculoskeletal Musculoskeletal: Muscle Cramps Critical Care Progress Note - Nutrition Nutrition: Nutrition Category Date Time Status Liquid Diet [DIET] Diets 04/01/17 Breakfast Active Renal Diet [DIET] Diets 04/02/17 Dinner Active Assessment/Plan - Assessment and Plan (Free Text) Assessment: 51 y/o F with pmhx of ESRD, hypertension, high cholesterol, uncontrolled DMII, PAD, ischemic right leg POD#5 s/p exploratory lap with subtotal colectomy with ileostomy and R subclavian permacath readmitted to ICU for respiratory distress. Today's Plan: Patient stable for transfer to med/surg. Neuro:intact Cardio: hx htn, CHF * s/p emergent dialysis for CHF on night of 03/31 monitor Plavix 75mg po daily Pulm: Duonebs Cxray: moderate to severe venous congestion with pathcy bibasilar airspace opacities and small bilateral pleural effusions Renal: hx ESRD, POD #5 s/p R subclavian permacath Dr. Macdonald consulted, help appreciated explained fluid/ salt restriction as per Dr. Macdonald hemodialysis today Endo: hx DMII Lantus 10 u sc hs R ISS accuchecks GI: s/p exploratory lap POD#5 with subtotal colectomy advanced to CLD ileostomy functioning well MSK: ischemic right leg 02/27: positive wound culture for Serratia Marcescens and Vanco resistant E. faecium patient to have BKA with Dr. Clark once stable Dr. Ordonez consulted, help appreciated antibiotics as below Heme: Procrit ID: Dr. Cronin consulted, help appreciated Linezolid Meropenem Prophylaxis: DVT: Heparin 5000 u sc q12h GI: not currently indicated Diet advanced to renal diet <Tenzin Jimenez S - Last Filed: 04/02/17 17:25> CCU Objective - Vital Signs / Intake & Output Vital Signs (Last 4 hours): Vital Signs Pulse Ox 04/02/17 14:00 96 Intake and Output (Last 8hrs): Intake & Output 04/02/17 04/02/17 04/02/17 06:59 14:59 22:59 Intake Total 350 780 Output Total 90 110 Balance 260 670 Intake: Intake, IV Amount 150 400 Right PICC 150 400 Oral 200 380 Output: Drainage 40 10 Left Abdomen 40 10 Urine 0 0 Urine, Voided 0 0 Stool 50 100 - Medications Active Medications: Active Medications Generic Name Dose Route Start Last Admin Trade Name Freq PRN Reason Stop Dose Admin Acetaminophen 650 mg 03/09/17 20:48 04/01/17 22:15 Tylenol 325mg Tab PO 650 mg Q6 PRN Administration Pain, Mild (1-3) Albuterol/Ipratropium 3 ml 04/01/17 20:30 04/02/17 17:08 Duoneb 3 Mg/0.5 Mg (3 Ml) Ud INH Not Given RQ4 GUILLERMO Aspirin 81 mg 04/01/17 10:15 04/02/17 10:34 Ecotrin PO 81 mg DAILY GUILLERMO Administration Benzocaine/Menthol 1 poppy 03/27/17 16:19 Cepacol Sore Throat MT QID PRN Sore Throat Carvedilol 6.25 mg 04/01/17 19:30 04/02/17 10:33 Coreg PO Not Given BID GUILLERMO Clopidogrel Bisulfate 75 mg 04/01/17 10:15 04/02/17 10:30 Plavix PO Not Given DAILY GUILLERMO Dextrose 0 ml 03/13/17 07:03 03/13/17 07:17 Dextrose 50% Inj IV 25 ml STAT PRN Administration Hyglycemia Protocol Protocol Dextrose 0 gm 03/13/17 07:03 03/26/17 07:17 Glutose 15 PO 15 gm ONCE PRN Administration Hypoglycemia Protocol Protocol Epoetin Alec 10,000 unit 04/02/17 12:15 04/02/17 12:47 Procrit IV 10,000 unit TTS GUILLERMO Administration Famotidine 20 mg 04/01/17 11:30 04/02/17 10:35 Pepcid PO 20 mg DAILY GUILLERMO Administration Heparin Sodium (Porcine) 5,000 units 03/28/17 10:30 04/02/17 10:32 Heparin SC 5,000 units Q12H GUILLERMO Administration Hydromorphone HCl 0.5 mg 03/30/17 16:29 04/02/17 13:11 Dilaudid IVP 0.5 mg Q4 PRN Administration Pain, moderate (4-7) Linezolid 600 mg in 300 mls @ 200 mls/hr 03/28/17 22:00 04/02/17 12:48 Zyvox 600mg/300ml D5w IVPB 200 mls/hr Q12 GUILLERMO Administration Meropenem 500 mg/ Dextrose 100 mls @ 100 mls/hr 04/02/17 09:00 04/02/17 12:44 IVPB 100 mls/hr Q24H GUILLERMO Administration Insulin Glargine 10 unit 03/13/17 22:15 04/01/17 22:15 Lantus SC Not Given HS GUILLERMO Insulin Human Regular 0 unit 03/20/17 16:30 04/02/17 11:28 Novolin R SC Not Given ACHS [facility] Protocol Ondansetron HCl 4 mg 03/27/17 22:36 Zofran Inj IVP Q4 PRN Nausea/Vomiting Vitamin B Complex/Vit C/Folic Acid 1 tab 04/02/17 08:00 04/02/17 08:41 Nephro-Cony PO 1 tab 0800 GUILLERMO Administration - Patient Studies Lab Studies: Microbiology Studies 04/01/17 03:33 MRSA Culture (Admit) - Final Naris MRSA NOT DETECTED Lab Studies 04/02/17 04/02/17 04/02/17 Range/Units 16:11 11:19 07:29 WBC (4.8-10.8) K/uL RBC (3.80-5.20) Mil/uL Hgb (11.0-16.0) g/dL Hct (34.0-47.0) % MCV (81.0-99.0) fL MCH (27.0-31.0) pg MCHC (33.0-37.0) g/dL RDW (11.5-14.5) % Plt Count (130-400) K/uL MPV (7.2-11.7) fL Neut % (Auto) (50.0-75.0) % Lymph % (Auto) (20.0-40.0) % Grimes % (Auto) (0.0-10.0) % Eos % (Auto) (0.0-4.0) % Baso % (Auto) (0.0-2.0) % Neut # (1.8-7.0) K/uL Lymph # (1.0-4.3) K/uL Grimes # (0.0-0.8) K/uL Eos # (0.0-0.7) K/uL Baso # (0.0-0.2) K/uL Sodium (132-148) mmol/L Potassium (3.6-5.2) mmol/L Chloride (98-107) mmol/L Carbon Dioxide (22-30) mmol/L Anion Gap (10-20) BUN (7-17) mg/dL Creatinine (0.7-1.2) mg/dL Est GFR ( Amer) Est GFR (Non-Af Amer) POC Glucose (mg/dL) 298 H 152 H 189 H (65-110) mg/dL Random Glucose (65-105) mg/dL Calcium (8.6-10.4) mg/dl Phosphorus (2.5-4.5) mg/dL Magnesium (1.6-2.3) mg/dL % Saturation (20-55) Ferritin ng/mL Total Bilirubin (0.2-1.3) mg/dL AST (14-36) U/L ALT (9-52) U/L Alkaline Phosphatase (38-126) U/L Total Protein (6.3-8.3) g/dL Albumin (3.5-5.0) g/dL Globulin (2.2-3.9) gm/dL Albumin/Globulin Ratio (1.0-2.1) 04/02/17 04/02/17 04/02/17 Range/Units 06:20 06:20 06:20 WBC (4.8-10.8) K/uL RBC (3.80-5.20) Mil/uL Hgb (11.0-16.0) g/dL Hct (34.0-47.0) % MCV (81.0-99.0) fL MCH (27.0-31.0) pg MCHC (33.0-37.0) g/dL RDW (11.5-14.5) % Plt Count (130-400) K/uL MPV (7.2-11.7) fL Neut % (Auto) (50.0-75.0) % Lymph % (Auto) (20.0-40.0) % Grimes % (Auto) (0.0-10.0) % Eos % (Auto) (0.0-4.0) % Baso % (Auto) (0.0-2.0) % Neut # (1.8-7.0) K/uL Lymph # (1.0-4.3) K/uL Grimes # (0.0-0.8) K/uL Eos # (0.0-0.7) K/uL Baso # (0.0-0.2) K/uL Sodium 132 (132-148) mmol/L Potassium 3.5 L (3.6-5.2) mmol/L Chloride 93 L (98-107) mmol/L Carbon Dioxide 24 (22-30) mmol/L Anion Gap 19 (10-20) BUN 25 H (7-17) mg/dL Creatinine 5.9 H (0.7-1.2) mg/dL Est GFR ( Amer) 9 Est GFR (Non-Af Amer) 8 POC Glucose (mg/dL) (65-110) mg/dL Random Glucose 148 H (65-105) mg/dL Calcium 8.0 L (8.6-10.4) mg/dl Phosphorus 3.7 (2.5-4.5) mg/dL Magnesium 2.0 (1.6-2.3) mg/dL % Saturation 23 (20-55) Ferritin 1160.0 ng/mL Total Bilirubin 0.5 (0.2-1.3) mg/dL AST 12 L D (14-36) U/L ALT 32 (9-52) U/L Alkaline Phosphatase 102 (38-126) U/L Total Protein 5.9 L (6.3-8.3) g/dL Albumin 2.5 L (3.5-5.0) g/dL Globulin 3.4 (2.2-3.9) gm/dL Albumin/Globulin Ratio 0.7 L (1.0-2.1) 04/02/17 04/01/17 Range/Units 06:20 21:09 WBC 11.3 H (4.8-10.8) K/uL RBC 3.11 L (3.80-5.20) Mil/uL Hgb 9.4 L (11.0-16.0) g/dL Hct 28.7 L (34.0-47.0) % MCV 92.0 (81.0-99.0) fL MCH 30.0 (27.0-31.0) pg MCHC 32.6 L (33.0-37.0) g/dL RDW 15.3 H (11.5-14.5) % Plt Count 265 (130-400) K/uL MPV 7.9 (7.2-11.7) fL Neut % (Auto) 79.2 H (50.0-75.0) % Lymph % (Auto) 10.4 L (20.0-40.0) % Grimes % (Auto) 8.8 (0.0-10.0) % Eos % (Auto) 1.1 (0.0-4.0) % Baso % (Auto) 0.5 (0.0-2.0) % Neut # 9.0 H (1.8-7.0) K/uL Lymph # 1.2 (1.0-4.3) K/uL Grimes # 1.0 H (0.0-0.8) K/uL Eos # 0.1 (0.0-0.7) K/uL Baso # 0.1 (0.0-0.2) K/uL Sodium (132-148) mmol/L Potassium (3.6-5.2) mmol/L Chloride (98-107) mmol/L Carbon Dioxide (22-30) mmol/L Anion Gap (10-20) BUN (7-17) mg/dL Creatinine (0.7-1.2) mg/dL Est GFR ( Amer) Est GFR (Non-Af Amer) POC Glucose (mg/dL) 217 H (65-110) mg/dL Random Glucose (65-105) mg/dL Calcium (8.6-10.4) mg/dl Phosphorus (2.5-4.5) mg/dL Magnesium (1.6-2.3) mg/dL % Saturation (20-55) Ferritin ng/mL Total Bilirubin (0.2-1.3) mg/dL AST (14-36) U/L ALT (9-52) U/L Alkaline Phosphatase (38-126) U/L Total Protein (6.3-8.3) g/dL Albumin (3.5-5.0) g/dL Globulin (2.2-3.9) gm/dL Albumin/Globulin Ratio (1.0-2.1) Laboratory Results - last 24 hr 04/01/17 04/02/17 04/02/17 21:09 06:20 06:20 WBC 11.3 H RBC 3.11 L Hgb 9.4 L Hct 28.7 L MCV 92.0 MCH 30.0 MCHC 32.6 L RDW 15.3 H Plt Count 265 MPV 7.9 Neut % (Auto) 79.2 H Lymph % (Auto) 10.4 L Grimes % (Auto) 8.8 Eos % (Auto) 1.1 Baso % (Auto) 0.5 Neut # 9.0 H Lymph # 1.2 Grimes # 1.0 H Eos # 0.1 Baso # 0.1 Sodium 132 Potassium 3.5 L Chloride 93 L Carbon Dioxide 24 Anion Gap 19 BUN 25 H Creatinine 5.9 H Est GFR ( Amer) 9 Est GFR (Non-Af Amer) 8 POC Glucose (mg/dL) 217 H Random Glucose 148 H Calcium 8.0 L Phosphorus Magnesium % Saturation Ferritin Total Bilirubin 0.5 AST 12 L D ALT 32 Alkaline Phosphatase 102 Total Protein 5.9 L Albumin 2.5 L Globulin 3.4 Albumin/Globulin Ratio 0.7 L 04/02/17 04/02/17 04/02/17 06:20 06:20 07:29 WBC RBC Hgb Hct MCV MCH MCHC RDW Plt Count MPV Neut % (Auto) Lymph % (Auto) Grimes % (Auto) Eos % (Auto) Baso % (Auto) Neut # Lymph # Grimes # Eos # Baso # Sodium Potassium Chloride Carbon Dioxide Anion Gap BUN Creatinine Est GFR ( Amer) Est GFR (Non-Af Amer) POC Glucose (mg/dL) 189 H Random Glucose Calcium Phosphorus 3.7 Magnesium 2.0 % Saturation 23 Ferritin 1160.0 Total Bilirubin AST ALT Alkaline Phosphatase Total Protein Albumin Globulin Albumin/Globulin Ratio 04/02/17 04/02/17 11:19 16:11 WBC RBC Hgb Hct MCV MCH MCHC RDW Plt Count MPV Neut % (Auto) Lymph % (Auto) Grimes % (Auto) Eos % (Auto) Baso % (Auto) Neut # Lymph # Grimes # Eos # Baso # Sodium Potassium Chloride Carbon Dioxide Anion Gap BUN Creatinine Est GFR ( Amer) Est GFR (Non-Af Amer) POC Glucose (mg/dL) 152 H 298 H Random Glucose Calcium Phosphorus Magnesium % Saturation Ferritin Total Bilirubin AST ALT Alkaline Phosphatase Total Protein Albumin Globulin Albumin/Globulin Ratio Critical Care Progress Note - Nutrition Nutrition: Nutrition Category Date Time Status Renal Diet [DIET] Diets 04/02/17 Dinner Active Attending/Attestation - Attestation I have personally seen and examined this patient.: Yes I have fully participated in the care of the patient.: Yes I have reviewed all pertinent clinical information: Yes Notes (Text): 04/02/17 17:22 Patient seen and examined in the intensive care unit. 51 y/o F with pmhx of ESRD, hypertension, high cholesterol, uncontrolled DMII, PAD, ischemic right leg POD#5 s/p exploratory lap with subtotal colectomy with ileostomy and R subclavian permacath Patient seen getting hemodialysis Breathing much improved Stable to transfer to floor Continue present treatment
[2017-04-02] MEDS: (Lantus) Insulin Glargine, Recombinant SC SCH (22:00)
--- NOTE | 2017-04-02 22:25 | CP.PCM.PN ---
Subjective - Date & Time of Evaluation Date of Evaluation: 04/02/17 Time of Evaluation: 22:24 - Subjective Subjective: pt having pain. received hemodialysis today. leg pain Abdominal pain noted. Right leg pain noted Ileostomy is draining. peritoneal draining also. Chest clear. Postoperative abdomen Regular heart sounds Labs reviewed Assessment and recommendation: 51-year-old female with a history of end-stage renal disease. Currently receiving hemodialysis instead of peritoneal dialysis. Complicated with the severe colitis, and impending rupture, status post a colectomy. Continue the current treatment. Peripheral vascular disease. Patient will need a right leg below-knee on dictation, awaiting surgery for that. The report of the transfer, will discuss with ICU. Until we do the right foot amputation. Patient is at high risk for recurrent abdominal sepsis. Objective - Vital Signs/Intake and Output Vital Signs (last 24 hours): Temp Pulse Resp BP Pulse Ox 98.1 F 103 H 14 126/63 98 04/02/17 20:00 04/02/17 20:00 04/02/17 20:00 04/02/17 20:00 04/02/17 20:00 Intake and Output: 04/02/17 04/03/17 18:59 06:59 Intake Total 990 100 Output Total 120 135 Balance 870 -35 - Medications Medications: Current Medications Acetaminophen (Tylenol 325mg Tab) 650 mg PO Q6 PRN PRN Reason: Pain, Mild (1-3) Last Admin: 04/02/17 19:30 Dose: 650 mg Albuterol/Ipratropium (Duoneb 3 Mg/0.5 Mg (3 Ml) Ud) 3 ml INH RQ4 [facility] Last Admin: 04/02/17 20:36 Dose: Not Given Aspirin (Ecotrin) 81 mg PO DAILY [facility] Last Admin: 04/02/17 10:34 Dose: 81 mg Benzocaine/Menthol (Cepacol Sore Throat) 1 poppy MT QID PRN PRN Reason: Sore Throat Carvedilol (Coreg) 6.25 mg PO BID [facility] Last Admin: 04/02/17 18:53 Dose: 6.25 mg Clopidogrel Bisulfate (Plavix) 75 mg PO DAILY [facility] Last Admin: 04/02/17 10:30 Dose: Not Given Dextrose (Dextrose 50% Inj) 0 ml IV STAT PRN; Protocol PRN Reason: Hyglycemia Protocol Last Admin: 03/13/17 07:17 Dose: 25 ml Dextrose (Glutose 15) 0 gm PO ONCE PRN; Protocol PRN Reason: Hypoglycemia Protocol Last Admin: 03/26/17 07:17 Dose: 15 gm Epoetin Alec (Procrit) 10,000 unit IV TTS [facility] Last Admin: 04/02/17 12:47 Dose: 10,000 unit Famotidine (Pepcid) 20 mg PO DAILY [facility] Last Admin: 04/02/17 10:35 Dose: 20 mg Heparin Sodium (Porcine) (Heparin) 5,000 units SC Q12H [facility] Last Admin: 04/02/17 22:20 Dose: 5,000 units Hydromorphone HCl (Dilaudid) 0.5 mg IVP Q4 PRN PRN Reason: Pain, moderate (4-7) Last Admin: 04/02/17 17:35 Dose: 0.5 mg Linezolid (Zyvox 600mg/300ml D5w) 600 mg in 300 mls @ 200 mls/hr IVPB Q12 [facility] Last Admin: 04/02/17 22:20 Dose: 200 mls/hr Meropenem 500 mg/ Dextrose 100 mls @ 100 mls/hr IVPB Q24H [facility] Last Admin: 04/02/17 12:44 Dose: 100 mls/hr Insulin Glargine (Lantus) 10 unit SC HS [facility] Last Admin: 04/02/17 22:00 Dose: Not Given Insulin Human Regular (Novolin R) 0 unit SC ACHS [facility] PRN Reason: Protocol Last Admin: 04/02/17 22:00 Dose: Not Given Ondansetron HCl (Zofran Inj) 4 mg IVP Q4 PRN PRN Reason: Nausea/Vomiting Vitamin B Complex/Vit C/Folic Acid (Nephro-Cony) 1 tab PO 0800 [facility] Last Admin: 04/02/17 08:41 Dose: 1 tab - Labs Labs: 04/02/17 06:20 04/02/17 06:20 PT 11.7 SECONDS (9.7-12.2) 03/13/17 08:31 INR 1.0 03/13/17 08:31 APTT 41 SECONDS (21-34) H 03/13/17 08:31
[2017-04-03] MEDS: Albuterol-Ipratrop 3 mg / 0.5 (3 ml) UD INH SCH ×7 (00:43→23:57)
[2017-04-03] MEDS: HYDROmorphone 0.5 mg/0.5 ml ISec IVP PRN ×5 (02:35→22:41)
[2017-04-03 06:38] LABS: BASO # 0.1 K/uL (0.0-0.2); BASO % 0.7 % (0.0-2.0); EOS # 0.1 K/uL (0.0-0.7); EOS % 0.7 % (0.0-4.0); HEMATOCRIT 31.6 % (34.0-47.0); LYMPH # 1.7 K/uL (1.0-4.3); LYMPH % 14.9 % (20.0-40.0); MEAN CELL VOLUME 92.3 fL (81.0-99.0); MEAN CORPUSCULAR HEMOGLOBIN 29.4 pg (27.0-31.0); MEAN CORPUSCULAR HGB CONC 31.8 g/dL (33.0-37.0); MONO % 8.9 % (0.0-10.0); NRBC % 0.1 % (0.0-2.0); RED CELL DISTRIBUTION WIDTH 15.7 % (11.5-14.5); WHITE BLOOD COUNT 11.7 K/uL (4.8-10.8)
[2017-04-03 07:04] LABS: POTASSIUM 3.4 mmol/L (3.6-5.2)
[2017-04-03 07:06] LABS: BILIRUBIN,TOTAL 0.6 mg/dL (0.2-1.3)
[2017-04-03 07:07] LABS: ALB/GLOB RATIO 0.7 (1.0-2.1); CALCIUM 8.2 mg/dl (8.6-10.4); MAGNESIUM 1.9 mg/dL (1.6-2.3); PHOSPHOROUS 3.5 mg/dL (2.5-4.5); TOTAL PROTEIN 6.4 g/dL (6.3-8.3)
[2017-04-03] MEDS: Multivitamin Vitamin B Complex (Nephro-Vite) Tab PO SCH (08:16)
[2017-04-03] MEDS: (Novolin R) Insulin Human Regular 100 units/ml vial SC SCH ×4 (08:19→22:01)
[2017-04-03] MEDS: Meropenem 500 MG in Dextrose 5% In Water 100 ML IVPB SCH (10:01)
[2017-04-03] MEDS: Linezolid 600 mg in D5W 300 ml 600 MG/300 ML BAG IVPB SCH ×2 (11:10→22:01)
--- NOTE | 2017-04-03 12:35 | CP.PCM.PN ---
Subjective - Date & Time of Evaluation Date of Evaluation: 04/03/17 Time of Evaluation: 12:32 - Subjective Subjective: s/p dialysis 04/02- UF 2400ml BP more elevated Alert , feels better except with same TMA site pain Ileostomy functioning well Awaiting right BKA surgery No CPs, nausea, vomiting, dyspnea Objective - Vital Signs/Intake and Output Vital Signs (last 24 hours): Temp Pulse Resp BP Pulse Ox 98.2 F 101 H 16 175/82 H 100 04/03/17 07:48 04/03/17 10:11 04/03/17 10:11 04/03/17 10:11 04/03/17 10:11 Intake and Output: 04/03/17 04/03/17 06:59 18:59 Intake Total 600 Output Total 640 0 Balance -40 0 - Medications Medications: Current Medications Acetaminophen (Tylenol 325mg Tab) 650 mg PO Q6 PRN PRN Reason: Pain, Mild (1-3) Last Admin: 04/02/17 19:30 Dose: 650 mg Albuterol/Ipratropium (Duoneb 3 Mg/0.5 Mg (3 Ml) Ud) 3 ml INH RQ4 [facility] Last Admin: 04/03/17 07:56 Dose: Not Given Aspirin (Ecotrin) 81 mg PO DAILY [facility] Last Admin: 04/03/17 10:13 Dose: 81 mg Benzocaine/Menthol (Cepacol Sore Throat) 1 poppy MT QID PRN PRN Reason: Sore Throat Carvedilol (Coreg) 6.25 mg PO BID [facility] Last Admin: 04/03/17 10:12 Dose: 6.25 mg Clopidogrel Bisulfate (Plavix) 75 mg PO DAILY [facility] Last Admin: 04/03/17 10:14 Dose: 75 mg Dextrose (Dextrose 50% Inj) 0 ml IV STAT PRN; Protocol PRN Reason: Hyglycemia Protocol Last Admin: 03/13/17 07:17 Dose: 25 ml Dextrose (Glutose 15) 0 gm PO ONCE PRN; Protocol PRN Reason: Hypoglycemia Protocol Last Admin: 03/26/17 07:17 Dose: 15 gm Epoetin Alec (Procrit) 10,000 unit IV TTS [facility] Last Admin: 04/02/17 12:47 Dose: 10,000 unit Famotidine (Pepcid) 20 mg PO DAILY [facility] Last Admin: 04/03/17 10:13 Dose: 20 mg Heparin Sodium (Porcine) (Heparin) 5,000 units SC Q12H [facility] Last Admin: 04/03/17 10:14 Dose: 5,000 units Hydromorphone HCl (Dilaudid) 0.5 mg IVP Q4 PRN PRN Reason: Pain, moderate (4-7) Last Admin: 04/03/17 08:18 Dose: 0.5 mg Linezolid (Zyvox 600mg/300ml D5w) 600 mg in 300 mls @ 200 mls/hr IVPB Q12 [facility] Last Admin: 04/03/17 11:10 Dose: 200 mls/hr Meropenem 500 mg/ Dextrose 100 mls @ 100 mls/hr IVPB Q24H [facility] Last Admin: 04/03/17 10:01 Dose: 100 mls/hr Insulin Glargine (Lantus) 10 unit SC HS [facility] Last Admin: 04/02/17 22:00 Dose: Not Given Insulin Human Regular (Novolin R) 0 unit SC ACHS [facility] PRN Reason: Protocol Last Admin: 04/03/17 08:19 Dose: 2 unit Ondansetron HCl (Zofran Inj) 4 mg IVP Q4 PRN PRN Reason: Nausea/Vomiting Vitamin B Complex/Vit C/Folic Acid (Nephro-Cony) 1 tab PO 0800 [facility] Last Admin: 04/03/17 08:16 Dose: 1 tab - Labs Labs: 04/03/17 06:30 04/03/17 06:30 PT 11.7 SECONDS (9.7-12.2) 03/13/17 08:31 INR 1.0 03/13/17 08:31 APTT 41 SECONDS (21-34) H 03/13/17 08:31 - Constitutional Appears: Non-toxic, Chronically Ill - Head Exam Head Exam: ATRAUMATIC, NORMAL INSPECTION - Eye Exam Eye Exam: EOMI, Normal appearance - Neck Exam Neck Exam: Normal Inspection. absent: Tenderness - Respiratory Exam Respiratory Exam: Clear to Ausculation Bilateral, NORMAL BREATHING PATTERN - Cardiovascular Exam Cardiovascular Exam: Tachycardia, +S1 - GI/Abdominal Exam GI & Abdominal Exam: Soft, Tenderness - Extremities Exam Extremities Exam: Calf Tenderness, Tenderness - Neurological Exam Neurological Exam: Alert, CN II-XII Intact - Skin Skin Exam: Dry, Warm Assessment and Plan (1) Type 1 diabetes mellitus with diabetic nephropathy Status: Acute (2) Gangrene of right foot Status: Acute (3) End stage renal disease Status: Acute (4) Fecal impaction Status: Acute (5) CHF (congestive heart failure) Status: Acute - Assessment and Plan (Free Text) Plan: Repeat dialysis in AM Increase BP meds Await BKA follow up labs
--- NOTE | 2017-04-03 15:26 | CP.PCM.PN ---
Subjective - Date & Time of Evaluation Date of Evaluation: 04/03/17 Time of Evaluation: 09:00 - Subjective Subjective: awaiting right BKA surgery IV rx renewed Objective - Vital Signs/Intake and Output Vital Signs (last 24 hours): Temp Pulse Resp BP Pulse Ox 98.2 F 101 H 16 175/82 H 100 04/03/17 07:48 04/03/17 10:11 04/03/17 10:11 04/03/17 10:11 04/03/17 10:11 Intake and Output: 04/03/17 04/03/17 06:59 18:59 Intake Total 600 Output Total 640 0 Balance -40 0 - Medications Medications: Current Medications Acetaminophen (Tylenol 325mg Tab) 650 mg PO Q6 PRN PRN Reason: Pain, Mild (1-3) Last Admin: 04/03/17 15:05 Dose: 650 mg Albuterol/Ipratropium (Duoneb 3 Mg/0.5 Mg (3 Ml) Ud) 3 ml INH RQ4 [facility] Last Admin: 04/03/17 14:02 Dose: Not Given Aspirin (Ecotrin) 81 mg PO DAILY [facility] Last Admin: 04/03/17 10:13 Dose: 81 mg Benzocaine/Menthol (Cepacol Sore Throat) 1 poppy MT QID PRN PRN Reason: Sore Throat Carvedilol (Coreg) 12.5 mg PO BID [facility] Clopidogrel Bisulfate (Plavix) 75 mg PO DAILY [facility] Last Admin: 04/03/17 10:14 Dose: 75 mg Dextrose (Dextrose 50% Inj) 0 ml IV STAT PRN; Protocol PRN Reason: Hyglycemia Protocol Last Admin: 03/13/17 07:17 Dose: 25 ml Dextrose (Glutose 15) 0 gm PO ONCE PRN; Protocol PRN Reason: Hypoglycemia Protocol Last Admin: 03/26/17 07:17 Dose: 15 gm Epoetin Alec (Procrit) 10,000 unit IV TTS [facility] Last Admin: 04/02/17 12:47 Dose: 10,000 unit Famotidine (Pepcid) 20 mg PO DAILY [facility] Last Admin: 04/03/17 10:13 Dose: 20 mg Heparin Sodium (Porcine) (Heparin) 5,000 units SC Q12H [facility] Last Admin: 04/03/17 10:14 Dose: 5,000 units Hydromorphone HCl (Dilaudid) 0.5 mg IVP Q4 PRN PRN Reason: Pain, moderate (4-7) Last Admin: 04/03/17 14:17 Dose: 0.5 mg Linezolid (Zyvox 600mg/300ml D5w) 600 mg in 300 mls @ 200 mls/hr IVPB Q12 [facility] Last Admin: 04/03/17 11:10 Dose: 200 mls/hr Meropenem 500 mg/ Dextrose 100 mls @ 100 mls/hr IVPB Q24H [facility] Last Admin: 04/03/17 10:01 Dose: 100 mls/hr Insulin Glargine (Lantus) 10 unit SC HS [facility] Last Admin: 04/02/17 22:00 Dose: Not Given Insulin Human Regular (Novolin R) 0 unit SC ACHS [facility] PRN Reason: Protocol Last Admin: 04/03/17 13:13 Dose: Not Given Ondansetron HCl (Zofran Inj) 4 mg IVP Q4 PRN PRN Reason: Nausea/Vomiting Vitamin B Complex/Vit C/Folic Acid (Nephro-Cony) 1 tab PO 0800 [facility] Last Admin: 04/03/17 08:16 Dose: 1 tab - Labs Labs: 04/03/17 06:30 04/03/17 06:30 PT 11.7 SECONDS (9.7-12.2) 03/13/17 08:31 INR 1.0 03/13/17 08:31 APTT 41 SECONDS (21-34) H 03/13/17 08:31 - Constitutional Appears: Non-toxic, Chronically Ill - Head Exam Head Exam: NORMOCEPHALIC - Eye Exam Eye Exam: PERRL - ENT Exam ENT Exam: Mucous Membranes Dry - Neck Exam Neck Exam: absent: Lymphadenopathy - Respiratory Exam Respiratory Exam: Decreased Breath Sounds - Cardiovascular Exam Cardiovascular Exam: REGULAR RHYTHM - GI/Abdominal Exam GI & Abdominal Exam: Distended - Rectal Exam Rectal Exam: Deferred - Exam Exam: NORMAL INSPECTION - Extremities Exam Extremities Exam: Pedal Edema - Back Exam Back Exam: absent: CVA tenderness (L), CVA tenderness (R) - Neurological Exam Neurological Exam: Alert Assessment and Plan (1) Gangrene of right foot Status: Acute (2) Chronic anemia Status: Acute (3) Chronic congestive heart failure Status: Acute (4) Diabetes mellitus Status: Acute (5) ESRD on peritoneal dialysis Status: Acute
--- NOTE | 2017-04-03 15:49 | CP.PCM.PN ---
Subjective - Date & Time of Evaluation Date of Evaluation: 04/03/17 Time of Evaluation: 07:00 - Subjective Subjective: SURGERY PROGRESS NOTE FOR DR. SANTIAGO Patient seen and examined at bedside in the ICU. She is tolerating her regular/ renal diet. She denies nausea or vomiting. She has some abdominal pain when she coughs. There is liquid stool output into the ileostomy. Objective - Vital Signs/Intake and Output Vital Signs (last 24 hours): Temp Pulse Resp BP Pulse Ox 98.2 F 101 H 16 175/82 H 100 04/03/17 07:48 04/03/17 10:11 04/03/17 10:11 04/03/17 10:11 04/03/17 10:11 Intake and Output: 04/03/17 04/03/17 06:59 18:59 Intake Total 600 Output Total 640 0 Balance -40 0 - Medications Medications: Current Medications Acetaminophen (Tylenol 325mg Tab) 650 mg PO Q6 PRN PRN Reason: Pain, Mild (1-3) Last Admin: 04/03/17 15:05 Dose: 650 mg Albuterol/Ipratropium (Duoneb 3 Mg/0.5 Mg (3 Ml) Ud) 3 ml INH RQ4 [facility] Last Admin: 04/03/17 14:02 Dose: Not Given Aspirin (Ecotrin) 81 mg PO DAILY [facility] Last Admin: 04/03/17 10:13 Dose: 81 mg Benzocaine/Menthol (Cepacol Sore Throat) 1 poppy MT QID PRN PRN Reason: Sore Throat Carvedilol (Coreg) 12.5 mg PO BID [facility] Clopidogrel Bisulfate (Plavix) 75 mg PO DAILY [facility] Last Admin: 04/03/17 10:14 Dose: 75 mg Dextrose (Dextrose 50% Inj) 0 ml IV STAT PRN; Protocol PRN Reason: Hyglycemia Protocol Last Admin: 03/13/17 07:17 Dose: 25 ml Dextrose (Glutose 15) 0 gm PO ONCE PRN; Protocol PRN Reason: Hypoglycemia Protocol Last Admin: 03/26/17 07:17 Dose: 15 gm Epoetin Alec (Procrit) 10,000 unit IV TTS [facility] Last Admin: 04/02/17 12:47 Dose: 10,000 unit Famotidine (Pepcid) 20 mg PO DAILY [facility] Last Admin: 04/03/17 10:13 Dose: 20 mg Heparin Sodium (Porcine) (Heparin) 5,000 units SC Q12H [facility] Last Admin: 04/03/17 10:14 Dose: 5,000 units Hydromorphone HCl (Dilaudid) 0.5 mg IVP Q4 PRN PRN Reason: Pain, moderate (4-7) Last Admin: 04/03/17 14:17 Dose: 0.5 mg Linezolid (Zyvox 600mg/300ml D5w) 600 mg in 300 mls @ 200 mls/hr IVPB Q12 [facility] Last Admin: 04/03/17 11:10 Dose: 200 mls/hr Meropenem 500 mg/ Dextrose 100 mls @ 100 mls/hr IVPB Q24H [facility] Last Admin: 04/03/17 10:01 Dose: 100 mls/hr Insulin Glargine (Lantus) 10 unit SC HS [facility] Last Admin: 04/02/17 22:00 Dose: Not Given Insulin Human Regular (Novolin R) 0 unit SC ACHS [facility] PRN Reason: Protocol Last Admin: 04/03/17 13:13 Dose: Not Given Ondansetron HCl (Zofran Inj) 4 mg IVP Q4 PRN PRN Reason: Nausea/Vomiting Vitamin B Complex/Vit C/Folic Acid (Nephro-Cony) 1 tab PO 0800 [facility] Last Admin: 04/03/17 08:16 Dose: 1 tab - Labs Labs: 04/03/17 06:30 04/03/17 06:30 PT 11.7 SECONDS (9.7-12.2) 03/13/17 08:31 INR 1.0 03/13/17 08:31 APTT 41 SECONDS (21-34) H 03/13/17 08:31 - Constitutional Appears: Non-toxic, No Acute Distress, Chronically Ill - Head Exam Head Exam: ATRAUMATIC, NORMAL INSPECTION - Eye Exam Eye Exam: EOMI, Normal appearance - Cardiovascular Exam Cardiovascular Exam: +S1, +S2 - GI/Abdominal Exam GI & Abdominal Exam: Soft, Tenderness (mild tenderness around incision). absent : Distended, Firm, Guarding, Rigid, Rebound Additional comments: Drain in place (connected to previous PD catheter) with serosanguinous drainage Dressings clean/dry/intact Ileostomy with stool in bag Assessment and Plan - Assessment and Plan (Free Text) Assessment: 51yo F with dilated colon secondary to fecal retention s/p Exploratory laparotomy, Subtotal colectomy with ileostomy formation POD#7 and chronic RLE PVD, OR tomorrow - Afebrile, mild tachycardia - Stool output into ileostomy - Tolerating renal dialysis/CCD diet - Encouraged OOB, PT, and IS use - Right BKA tomorrow - NPO after midnight - Heparin held for tomorrow - Discussed plan with Dr. Eduardo Chin PGY-3
[2017-04-03] MEDS ORDERED: Potassium Chloride 20 mEq ER Tab PO ONE ×2 (15:52→17:00)
--- NOTE | 2017-04-03 16:58 | CP.CCUPN ---
<RadhaAudrey L. - Last Filed: 04/03/17 16:47> CCU Subjective - Physician Review Subjective (Free Text): Patient seen and examined at bedside and in no acute distress. Patient undergoing hemodialysis. Patient complaining of abdominal and right lower extremity pain. CCU Objective - Vital Signs / Intake & Output Intake and Output (Last 8hrs): Intake & Output 04/03/17 04/03/17 04/03/17 06:59 14:59 22:59 Intake Total 150 Output Total 220 0 Balance -70 0 Intake: Intake, IV Amount 150 Right PICC 150 Output: Drainage 120 Left Abdomen 120 Urine 0 0 Urine, Voided 0 0 Stool 100 - Physical Exam Head: Positive for: Atraumatic, Normocephalic Respiratory/Chest: Positive for: Good Air Exchange. Negative for: Respiratory Distress, Accessory Muscle Use Cardiovascular: Positive for: Regular Rate and Rhythm, Normal S1, S2 Abdomen: Negative for: Tenderness (appropriate s/p surgery), Distention ( ileostomy ) Lower Extremity: Negative for: Normal Inspection (right foot amputation, necrotic wound wrapped in d/c/i dressing) Neurological: Positive for: GCS=15 Skin: Positive for: Warm Psychiatric: Positive for: Alert, Oriented x 3 - Medications Active Medications: Active Medications Generic Name Dose Route Start Last Admin Trade Name Freq PRN Reason Stop Dose Admin Acetaminophen 650 mg 03/09/17 20:48 04/03/17 15:05 Tylenol 325mg Tab PO 650 mg Q6 PRN Administration Pain, Mild (1-3) Albuterol/Ipratropium 3 ml 04/01/17 20:30 04/03/17 14:02 Duoneb 3 Mg/0.5 Mg (3 Ml) Ud INH Not Given RQ4 GUILLERMO Aspirin 81 mg 04/01/17 10:15 04/03/17 10:13 Ecotrin PO 81 mg DAILY GUILLERMO Administration Benzocaine/Menthol 1 poppy 03/27/17 16:19 Cepacol Sore Throat MT QID PRN Sore Throat Carvedilol 12.5 mg 04/03/17 18:00 Coreg PO BID GUILLERMO Clopidogrel Bisulfate 75 mg 04/01/17 10:15 04/03/17 10:14 Plavix PO 75 mg DAILY GUILLERMO Administration Dextrose 0 ml 03/13/17 07:03 03/13/17 07:17 Dextrose 50% Inj IV 25 ml STAT PRN Administration Hyglycemia Protocol Protocol Dextrose 0 gm 03/13/17 07:03 03/26/17 07:17 Glutose 15 PO 15 gm ONCE PRN Administration Hypoglycemia Protocol Protocol Epoetin Alec 10,000 unit 04/02/17 12:15 04/02/17 12:47 Procrit IV 10,000 unit TTS GUILLERMO Administration Famotidine 20 mg 04/01/17 11:30 04/03/17 10:13 Pepcid PO 20 mg DAILY GUILLERMO Administration Heparin Sodium (Porcine) 5,000 units 03/28/17 10:30 04/03/17 10:14 Heparin SC 5,000 units Q12H GUILLERMO Administration Hydromorphone HCl 0.5 mg 03/30/17 16:29 04/03/17 14:17 Dilaudid IVP 0.5 mg Q4 PRN Administration Pain, moderate (4-7) Linezolid 600 mg in 300 mls @ 200 mls/hr 03/28/17 22:00 04/03/17 11:10 Zyvox 600mg/300ml D5w IVPB 200 mls/hr Q12 GUILLERMO Administration Meropenem 500 mg/ Dextrose 100 mls @ 100 mls/hr 04/02/17 09:00 04/03/17 10:01 IVPB 100 mls/hr Q24H GUILLERMO Administration Insulin Glargine 10 unit 03/13/17 22:15 04/02/17 22:00 Lantus SC Not Given HS GUILLERMO Insulin Human Regular 0 unit 03/20/17 16:30 04/03/17 13:13 Novolin R SC Not Given ACHS [facility] Protocol Ondansetron HCl 4 mg 03/27/17 22:36 Zofran Inj IVP Q4 PRN Nausea/Vomiting Vitamin B Complex/Vit C/Folic Acid 1 tab 04/02/17 08:00 04/03/17 08:16 Nephro-Cony PO 1 tab 0800 GUILLERMO Administration - Patient Studies Lab Studies: Lab Studies 04/03/17 04/03/17 04/03/17 Range/Units 16:30 11:57 07:30 WBC (4.8-10.8) K/uL RBC (3.80-5.20) Mil/uL Hgb (11.0-16.0) g/dL Hct (34.0-47.0) % MCV (81.0-99.0) fL MCH (27.0-31.0) pg MCHC (33.0-37.0) g/dL RDW (11.5-14.5) % Plt Count (130-400) K/uL MPV (7.2-11.7) fL Neut % (Auto) (50.0-75.0) % Lymph % (Auto) (20.0-40.0) % [place] % (Auto) (0.0-10.0) % Eos % (Auto) (0.0-4.0) % Baso % (Auto) (0.0-2.0) % Neut # (1.8-7.0) K/uL Lymph # (1.0-4.3) K/uL [place] # (0.0-0.8) K/uL Eos # (0.0-0.7) K/uL Baso # (0.0-0.2) K/uL Sodium (132-148) mmol/L Potassium (3.6-5.2) mmol/L Chloride (98-107) mmol/L Carbon Dioxide (22-30) mmol/L Anion Gap (10-20) BUN (7-17) mg/dL Creatinine (0.7-1.2) mg/dL Est GFR ( Amer) Est GFR (Non-Af Amer) POC Glucose (mg/dL) 303 H 195 H 210 H (65-110) mg/dL Random Glucose (65-105) mg/dL Calcium (8.6-10.4) mg/dl Phosphorus (2.5-4.5) mg/dL Magnesium (1.6-2.3) mg/dL Total Bilirubin (0.2-1.3) mg/dL AST (14-36) U/L ALT (9-52) U/L Alkaline Phosphatase (38-126) U/L Total Protein (6.3-8.3) g/dL Albumin (3.5-5.0) g/dL Globulin (2.2-3.9) gm/dL Albumin/Globulin Ratio (1.0-2.1) PTH Intact Whole Molec (14-64) pg/mL 04/03/17 04/03/17 04/02/17 Range/Units 06:30 06:30 21:22 WBC 11.7 H (4.8-10.8) K/uL RBC 3.42 L (3.80-5.20) Mil/uL Hgb 10.0 L (11.0-16.0) g/dL Hct 31.6 L (34.0-47.0) % MCV 92.3 (81.0-99.0) fL MCH 29.4 (27.0-31.0) pg MCHC 31.8 L (33.0-37.0) g/dL RDW 15.7 H (11.5-14.5) % Plt Count 294 (130-400) K/uL MPV 8.0 (7.2-11.7) fL Neut % (Auto) 74.8 (50.0-75.0) % Lymph % (Auto) 14.9 L (20.0-40.0) % [place] % (Auto) 8.9 (0.0-10.0) % Eos % (Auto) 0.7 (0.0-4.0) % Baso % (Auto) 0.7 (0.0-2.0) % Neut # 8.7 H (1.8-7.0) K/uL Lymph # 1.7 (1.0-4.3) K/uL [place] # 1.0 H (0.0-0.8) K/uL Eos # 0.1 (0.0-0.7) K/uL Baso # 0.1 (0.0-0.2) K/uL Sodium 128 L (132-148) mmol/L Potassium 3.4 L (3.6-5.2) mmol/L Chloride 93 L (98-107) mmol/L Carbon Dioxide 26 (22-30) mmol/L Anion Gap 12 (10-20) BUN 17 (7-17) mg/dL Creatinine 4.6 H (0.7-1.2) mg/dL Est GFR ( Amer) 12 Est GFR (Non-Af Amer) 10 POC Glucose (mg/dL) 208 H (65-110) mg/dL Random Glucose 145 H (65-105) mg/dL Calcium 8.2 L (8.6-10.4) mg/dl Phosphorus 3.5 (2.5-4.5) mg/dL Magnesium 1.9 (1.6-2.3) mg/dL Total Bilirubin 0.6 (0.2-1.3) mg/dL AST 15 (14-36) U/L ALT 34 (9-52) U/L Alkaline Phosphatase 105 (38-126) U/L Total Protein 6.4 (6.3-8.3) g/dL Albumin 2.6 L (3.5-5.0) g/dL Globulin 3.8 (2.2-3.9) gm/dL Albumin/Globulin Ratio 0.7 L (1.0-2.1) PTH Intact Whole Molec (14-64) pg/mL 04/02/17 Range/Units 06:20 WBC (4.8-10.8) K/uL RBC (3.80-5.20) Mil/uL Hgb (11.0-16.0) g/dL Hct (34.0-47.0) % MCV (81.0-99.0) fL MCH (27.0-31.0) pg MCHC (33.0-37.0) g/dL RDW (11.5-14.5) % Plt Count (130-400) K/uL MPV (7.2-11.7) fL Neut % (Auto) (50.0-75.0) % Lymph % (Auto) (20.0-40.0) % [place] % (Auto) (0.0-10.0) % Eos % (Auto) (0.0-4.0) % Baso % (Auto) (0.0-2.0) % Neut # (1.8-7.0) K/uL Lymph # (1.0-4.3) K/uL [place] # (0.0-0.8) K/uL Eos # (0.0-0.7) K/uL Baso # (0.0-0.2) K/uL Sodium (132-148) mmol/L Potassium (3.6-5.2) mmol/L Chloride (98-107) mmol/L Carbon Dioxide (22-30) mmol/L Anion Gap (10-20) BUN (7-17) mg/dL Creatinine (0.7-1.2) mg/dL Est GFR ( Amer) Est GFR (Non-Af Amer) POC Glucose (mg/dL) (65-110) mg/dL Random Glucose (65-105) mg/dL Calcium (8.6-10.4) mg/dl Phosphorus (2.5-4.5) mg/dL Magnesium (1.6-2.3) mg/dL Total Bilirubin (0.2-1.3) mg/dL AST (14-36) U/L ALT (9-52) U/L Alkaline Phosphatase (38-126) U/L Total Protein (6.3-8.3) g/dL Albumin (3.5-5.0) g/dL Globulin (2.2-3.9) gm/dL Albumin/Globulin Ratio (1.0-2.1) PTH Intact Whole Molec 251 H (14-64) pg/mL Laboratory Results - last 24 hr 04/02/17 04/02/17 04/03/17 06:20 21:22 06:30 WBC 11.7 H RBC 3.42 L Hgb 10.0 L Hct 31.6 L MCV 92.3 MCH 29.4 MCHC 31.8 L RDW 15.7 H Plt Count 294 MPV 8.0 Neut % (Auto) 74.8 Lymph % (Auto) 14.9 L [place] % (Auto) 8.9 Eos % (Auto) 0.7 Baso % (Auto) 0.7 Neut # 8.7 H Lymph # 1.7 [place] # 1.0 H Eos # 0.1 Baso # 0.1 Sodium Potassium Chloride Carbon Dioxide Anion Gap BUN Creatinine Est GFR ( Amer) Est GFR (Non-Af Amer) POC Glucose (mg/dL) 208 H Random Glucose Calcium Phosphorus Magnesium Total Bilirubin AST ALT Alkaline Phosphatase Total Protein Albumin Globulin Albumin/Globulin Ratio PTH Intact Whole Molec 251 H 04/03/17 04/03/17 04/03/17 06:30 07:30 11:57 WBC RBC Hgb Hct MCV MCH MCHC RDW Plt Count MPV Neut % (Auto) Lymph % (Auto) [place] % (Auto) Eos % (Auto) Baso % (Auto) Neut # Lymph # [place] # Eos # Baso # Sodium 128 L Potassium 3.4 L Chloride 93 L Carbon Dioxide 26 Anion Gap 12 BUN 17 Creatinine 4.6 H Est GFR ( Amer) 12 Est GFR (Non-Af Amer) 10 POC Glucose (mg/dL) 210 H 195 H Random Glucose 145 H Calcium 8.2 L Phosphorus 3.5 Magnesium 1.9 Total Bilirubin 0.6 AST 15 ALT 34 Alkaline Phosphatase 105 Total Protein 6.4 Albumin 2.6 L Globulin 3.8 Albumin/Globulin Ratio 0.7 L PTH Intact Whole Molec 04/03/17 16:30 WBC RBC Hgb Hct MCV MCH MCHC RDW Plt Count MPV Neut % (Auto) Lymph % (Auto) [place] % (Auto) Eos % (Auto) Baso % (Auto) Neut # Lymph # [place] # Eos # Baso # Sodium Potassium Chloride Carbon Dioxide Anion Gap BUN Creatinine Est GFR ( Amer) Est GFR (Non-Af Amer) POC Glucose (mg/dL) 303 H Random Glucose Calcium Phosphorus Magnesium Total Bilirubin AST ALT Alkaline Phosphatase Total Protein Albumin Globulin Albumin/Globulin Ratio PTH Intact Whole Molec Fingerstick Blood Sugar Results: 210 Critical Care Progress Note - Nutrition Nutrition: Nutrition Category Date Time Status NPO Diet [DIET] Diets 04/04/17 Breakfast Active Renal Diet [DIET] Diets 04/02/17 Dinner Active Assessment/Plan - Assessment and Plan (Free Text) Assessment: 51 y/o F with pmhx of ESRD, hypertension, high cholesterol, uncontrolled DMII, PAD, ischemic right leg POD#5 s/p exploratory lap with subtotal colectomy with ileostomy and R subclavian permacath readmitted to ICU for respiratory distress. Neuro:intact Cardio: hx htn, CHF * s/p emergent dialysis for CHF on night of 03/31 monitor Plavix 75mg po daily stopped for surgery Aspirin 81mg po daily held Pulm: Duonebs Cxray: moderate to severe venous congestion with pathcy bibasilar airspace opacities and small bilateral pleural effusions Renal: hx ESRD, POD #5 s/p R subclavian permacath Dr. Macdonald consulted, help appreciated explained fluid/ salt restriction as per Dr. Macdonald Endo: hx DMII Lantus 10 u sc hs R ISS accuchecks GI: s/p exploratory lap POD#5 with subtotal colectomy advanced to CLD ileostomy functioning well MSK: ischemic right leg 02/27: positive wound culture for Serratia Marcescens and Vanco resistant E. faecium patient to have BKA with Dr. Clark once stable Dr. Ordonez consulted, help appreciated antibiotics as below Patient to go for BKA tomorrow with Dr. Clark NPO after midnight Heme: Procrit f/u manual platelet count ID: Dr. Cronin consulted, help appreciated Linezolid Meropenem Prophylaxis: DVT: Heparin 5000 stopped for surgery tomorrow GI: not currently indicated <Tenzin Jimenez - Last Filed: 04/03/17 17:34> CCU Objective - Vital Signs / Intake & Output Intake and Output (Last 8hrs): Intake & Output 04/03/17 04/03/17 04/03/17 06:59 14:59 22:59 Intake Total 150 Output Total 220 0 Balance -70 0 Intake: Intake, IV Amount 150 Right PICC 150 Output: Drainage 120 Left Abdomen 120 Urine 0 0 Urine, Voided 0 0 Stool 100 - Medications Active Medications: Active Medications Generic Name Dose Route Start Last Admin Trade Name Freq PRN Reason Stop Dose Admin Acetaminophen 650 mg 03/09/17 20:48 04/03/17 15:05 Tylenol 325mg Tab PO 650 mg Q6 PRN Administration Pain, Mild (1-3) Albuterol/Ipratropium 3 ml 04/01/17 20:30 04/03/17 14:02 Duoneb 3 Mg/0.5 Mg (3 Ml) Ud INH Not Given RQ4 GUILLERMO Aspirin 81 mg 04/01/17 10:15 04/03/17 10:13 Ecotrin PO 81 mg DAILY GUILLERMO Administration Benzocaine/Menthol 1 poppy 03/27/17 16:19 Cepacol Sore Throat MT QID PRN Sore Throat Carvedilol 12.5 mg 04/03/17 18:00 Coreg PO BID GUILLERMO Dextrose 0 ml 03/13/17 07:03 03/13/17 07:17 Dextrose 50% Inj IV 25 ml STAT PRN Administration Hyglycemia Protocol Protocol Dextrose 0 gm 03/13/17 07:03 03/26/17 07:17 Glutose 15 PO 15 gm ONCE PRN Administration Hypoglycemia Protocol Protocol Epoetin Alec 10,000 unit 04/02/17 12:15 04/02/17 12:47 Procrit IV 10,000 unit TTS GUILLERMO Administration Famotidine 20 mg 04/01/17 11:30 11/01/17 10:13 Pepcid PO 20 mg DAILY GUILLERMO Administration Hydromorphone HCl 0.5 mg 03/30/17 16:29 04/03/17 14:17 Dilaudid IVP 0.5 mg Q4 PRN Administration Pain, moderate (4-7) Linezolid 600 mg in 300 mls @ 200 mls/hr 03/28/17 22:00 04/03/17 11:10 Zyvox 600mg/300ml D5w IVPB 200 mls/hr Q12 GUILLERMO Administration Meropenem 500 mg/ Dextrose 100 mls @ 100 mls/hr 04/02/17 09:00 04/03/17 10:01 IVPB 100 mls/hr Q24H GUILLERMO Administration Insulin Glargine 10 unit 03/13/17 22:15 04/02/17 22:00 Lantus SC Not Given HS GUILLERMO Insulin Human Regular 0 unit 03/20/17 16:30 04/03/17 13:13 Novolin R SC Not Given ACHS [facility] Protocol Ondansetron HCl 4 mg 03/27/17 22:36 Zofran Inj IVP Q4 PRN Nausea/Vomiting Vitamin B Complex/Vit C/Folic Acid 1 tab 04/02/17 08:00 04/03/17 08:16 Nephro-Cony PO 1 tab 0800 GUILLERMO Administration - Patient Studies Lab Studies: Lab Studies 04/03/17 04/03/17 04/03/17 Range/Units 16:30 11:57 07:30 WBC (4.8-10.8) K/uL RBC (3.80-5.20) Mil/uL Hgb (11.0-16.0) g/dL Hct (34.0-47.0) % MCV (81.0-99.0) fL MCH (27.0-31.0) pg MCHC (33.0-37.0) g/dL RDW (11.5-14.5) % Plt Count (130-400) K/uL MPV (7.2-11.7) fL Neut % (Auto) (50.0-75.0) % Lymph % (Auto) (20.0-40.0) % [place] % (Auto) (0.0-10.0) % Eos % (Auto) (0.0-4.0) % Baso % (Auto) (0.0-2.0) % Neut # (1.8-7.0) K/uL Lymph # (1.0-4.3) K/uL [place] # (0.0-0.8) K/uL Eos # (0.0-0.7) K/uL Baso # (0.0-0.2) K/uL Sodium (132-148) mmol/L Potassium (3.6-5.2) mmol/L Chloride (98-107) mmol/L Carbon Dioxide (22-30) mmol/L Anion Gap (10-20) BUN (7-17) mg/dL Creatinine (0.7-1.2) mg/dL Est GFR ( Amer) Est GFR (Non-Af Amer) POC Glucose (mg/dL) 303 H 195 H 210 H (65-110) mg/dL Random Glucose (65-105) mg/dL Calcium (8.6-10.4) mg/dl Phosphorus (2.5-4.5) mg/dL Magnesium (1.6-2.3) mg/dL Total Bilirubin (0.2-1.3) mg/dL AST (14-36) U/L ALT (9-52) U/L Alkaline Phosphatase (38-126) U/L Total Protein (6.3-8.3) g/dL Albumin (3.5-5.0) g/dL Globulin (2.2-3.9) gm/dL Albumin/Globulin Ratio (1.0-2.1) PTH Intact Whole Molec (14-64) pg/mL 04/03/17 04/03/17 04/02/17 Range/Units 06:30 06:30 21:22 WBC 11.7 H (4.8-10.8) K/uL RBC 3.42 L (3.80-5.20) Mil/uL Hgb 10.0 L (11.0-16.0) g/dL Hct 31.6 L (34.0-47.0) % MCV 92.3 (81.0-99.0) fL MCH 29.4 (27.0-31.0) pg MCHC 31.8 L (33.0-37.0) g/dL RDW 15.7 H (11.5-14.5) % Plt Count 294 (130-400) K/uL MPV 8.0 (7.2-11.7) fL Neut % (Auto) 74.8 (50.0-75.0) % Lymph % (Auto) 14.9 L (20.0-40.0) % [place] % (Auto) 8.9 (0.0-10.0) % Eos % (Auto) 0.7 (0.0-4.0) % Baso % (Auto) 0.7 (0.0-2.0) % Neut # 8.7 H (1.8-7.0) K/uL Lymph # 1.7 (1.0-4.3) K/uL [place] # 1.0 H (0.0-0.8) K/uL Eos # 0.1 (0.0-0.7) K/uL Baso # 0.1 (0.0-0.2) K/uL Sodium 128 L (132-148) mmol/L Potassium 3.4 L (3.6-5.2) mmol/L Chloride 93 L (98-107) mmol/L Carbon Dioxide 26 (22-30) mmol/L Anion Gap 12 (10-20) BUN 17 (7-17) mg/dL Creatinine 4.6 H (0.7-1.2) mg/dL Est GFR ( Amer) 12 Est GFR (Non-Af Amer) 10 POC Glucose (mg/dL) 208 H (65-110) mg/dL Random Glucose 145 H (65-105) mg/dL Calcium 8.2 L (8.6-10.4) mg/dl Phosphorus 3.5 (2.5-4.5) mg/dL Magnesium 1.9 (1.6-2.3) mg/dL Total Bilirubin 0.6 (0.2-1.3) mg/dL AST 15 (14-36) U/L ALT 34 (9-52) U/L Alkaline Phosphatase 105 (38-126) U/L Total Protein 6.4 (6.3-8.3) g/dL Albumin 2.6 L (3.5-5.0) g/dL Globulin 3.8 (2.2-3.9) gm/dL Albumin/Globulin Ratio 0.7 L (1.0-2.1) PTH Intact Whole Molec (14-64) pg/mL 04/02/17 Range/Units 06:20 WBC (4.8-10.8) K/uL RBC (3.80-5.20) Mil/uL Hgb (11.0-16.0) g/dL Hct (34.0-47.0) % MCV (81.0-99.0) fL MCH (27.0-31.0) pg MCHC (33.0-37.0) g/dL RDW (11.5-14.5) % Plt Count (130-400) K/uL MPV (7.2-11.7) fL Neut % (Auto) (50.0-75.0) % Lymph % (Auto) (20.0-40.0) % [place] % (Auto) (0.0-10.0) % Eos % (Auto) (0.0-4.0) % Baso % (Auto) (0.0-2.0) % Neut # (1.8-7.0) K/uL Lymph # (1.0-4.3) K/uL [place] # (0.0-0.8) K/uL Eos # (0.0-0.7) K/uL Baso # (0.0-0.2) K/uL Sodium (132-148) mmol/L Potassium (3.6-5.2) mmol/L Chloride (98-107) mmol/L Carbon Dioxide (22-30) mmol/L Anion Gap (10-20) BUN (7-17) mg/dL Creatinine (0.7-1.2) mg/dL Est GFR ( Amer) Est GFR (Non-Af Amer) POC Glucose (mg/dL) (65-110) mg/dL Random Glucose (65-105) mg/dL Calcium (8.6-10.4) mg/dl Phosphorus (2.5-4.5) mg/dL Magnesium (1.6-2.3) mg/dL Total Bilirubin (0.2-1.3) mg/dL AST (14-36) U/L ALT (9-52) U/L Alkaline Phosphatase (38-126) U/L Total Protein (6.3-8.3) g/dL Albumin (3.5-5.0) g/dL Globulin (2.2-3.9) gm/dL Albumin/Globulin Ratio (1.0-2.1) PTH Intact Whole Molec 251 H (14-64) pg/mL Laboratory Results - last 24 hr 04/02/17 04/02/17 04/03/17 06:20 21:22 06:30 WBC 11.7 H RBC 3.42 L Hgb 10.0 L Hct 31.6 L MCV 92.3 MCH 29.4 MCHC 31.8 L RDW 15.7 H Plt Count 294 MPV 8.0 Neut % (Auto) 74.8 Lymph % (Auto) 14.9 L [place] % (Auto) 8.9 Eos % (Auto) 0.7 Baso % (Auto) 0.7 Neut # 8.7 H Lymph # 1.7 [place] # 1.0 H Eos # 0.1 Baso # 0.1 Sodium Potassium Chloride Carbon Dioxide Anion Gap BUN Creatinine Est GFR ( Amer) Est GFR (Non-Af Amer) POC Glucose (mg/dL) 208 H Random Glucose Calcium Phosphorus Magnesium Total Bilirubin AST ALT Alkaline Phosphatase Total Protein Albumin Globulin Albumin/Globulin Ratio PTH Intact Whole Molec 251 H 04/03/17 04/03/17 04/03/17 06:30 07:30 11:57 WBC RBC Hgb Hct MCV MCH MCHC RDW Plt Count MPV Neut % (Auto) Lymph % (Auto) [place] % (Auto) Eos % (Auto) Baso % (Auto) Neut # Lymph # [place] # Eos # Baso # Sodium 128 L Potassium 3.4 L Chloride 93 L Carbon Dioxide 26 Anion Gap 12 BUN 17 Creatinine 4.6 H Est GFR ( Amer) 12 Est GFR (Non-Af Amer) 10 POC Glucose (mg/dL) 210 H 195 H Random Glucose 145 H Calcium 8.2 L Phosphorus 3.5 Magnesium 1.9 Total Bilirubin 0.6 AST 15 ALT 34 Alkaline Phosphatase 105 Total Protein 6.4 Albumin 2.6 L Globulin 3.8 Albumin/Globulin Ratio 0.7 L PTH Intact Whole Molec 04/03/17 16:30 WBC RBC Hgb Hct MCV MCH MCHC RDW Plt Count MPV Neut % (Auto) Lymph % (Auto) [place] % (Auto) Eos % (Auto) Baso % (Auto) Neut # Lymph # [place] # Eos # Baso # Sodium Potassium Chloride Carbon Dioxide Anion Gap BUN Creatinine Est GFR ( Amer) Est GFR (Non-Af Amer) POC Glucose (mg/dL) 303 H Random Glucose Calcium Phosphorus Magnesium Total Bilirubin AST ALT Alkaline Phosphatase Total Protein Albumin Globulin Albumin/Globulin Ratio PTH Intact Whole Molec Critical Care Progress Note - Nutrition Nutrition: Nutrition Category Date Time Status NPO Diet [DIET] Diets 04/04/17 Breakfast Active Renal Diet [DIET] Diets 04/02/17 Dinner Active Attending/Attestation - Attestation I have personally seen and examined this patient.: Yes I have fully participated in the care of the patient.: Yes I have reviewed all pertinent clinical information: Yes Notes (Text): 04/03/17 17:33 Patient seen and examined in the intensive care unit. Case discussed with staff in the morning rounds. Possible amputation tomorrow Continue present treatment
[2017-04-03] MEDS: (Lantus) Insulin Glargine, Recombinant SC SCH (22:04)
--- NOTE | 2017-04-04 01:14 | CP.PCM.PN ---
Subjective - Date & Time of Evaluation Date of Evaluation: 04/03/17 Time of Evaluation: 23:45 - Subjective Subjective: pt having pain. received hemodialysis today. leg pain Abdominal pain noted. Right leg pain noted Ileostomy is draining. peritoneal draining also. Chest clear. Postoperative abdomen Regular heart sounds Labs reviewed Assessment and recommendation: 51-year-old female with a history of end-stage renal disease. Currently receiving hemodialysis instead of peritoneal dialysis. Complicated with the severe colitis, and impending rupture, status post a colectomy. Continue the current treatment. Peripheral vascular disease. Patient will need a right leg below-knee on dictation, awaiting surgery for that. The report of the transfer, will discuss with ICU. Until we do the right foot amputation. Patient is at high risk for recurrent abdominal sepsis. Objective - Vital Signs/Intake and Output Vital Signs (last 24 hours): Temp Pulse Resp BP Pulse Ox 98.0 F 86 14 142/76 100 04/03/17 20:00 04/03/17 22:00 04/03/17 22:00 04/03/17 20:33 04/03/17 18:37 Intake and Output: 04/03/17 04/04/17 18:59 06:59 Intake Total 1000 320 Output Total 480 0 Balance 520 320 - Medications Medications: Current Medications Acetaminophen (Tylenol 325mg Tab) 650 mg PO Q6 PRN PRN Reason: Pain, Mild (1-3) Last Admin: 04/03/17 15:05 Dose: 650 mg Albuterol/Ipratropium (Duoneb 3 Mg/0.5 Mg (3 Ml) Ud) 3 ml INH RQ4 [facility] Last Admin: 04/03/17 23:57 Dose: Not Given Aspirin (Ecotrin) 81 mg PO DAILY [facility] Last Admin: 04/03/17 10:13 Dose: 81 mg Benzocaine/Menthol (Cepacol Sore Throat) 1 poppy MT QID PRN PRN Reason: Sore Throat Carvedilol (Coreg) 12.5 mg PO BID [facility] Last Admin: 04/03/17 18:36 Dose: 12.5 mg Dextrose (Dextrose 50% Inj) 0 ml IV STAT PRN; Protocol PRN Reason: Hyglycemia Protocol Last Admin: 03/13/17 07:17 Dose: 25 ml Dextrose (Glutose 15) 0 gm PO ONCE PRN; Protocol PRN Reason: Hypoglycemia Protocol Last Admin: 03/26/17 07:17 Dose: 15 gm Epoetin Alec (Procrit) 10,000 unit IV TTS [facility] Last Admin: 04/02/17 12:47 Dose: 10,000 unit Famotidine (Pepcid) 20 mg PO DAILY [facility] Last Admin: 04/03/17 10:13 Dose: 20 mg Hydromorphone HCl (Dilaudid) 0.5 mg IVP Q4 PRN PRN Reason: Pain, moderate (4-7) Last Admin: 04/03/17 22:41 Dose: 0.5 mg Linezolid (Zyvox 600mg/300ml D5w) 600 mg in 300 mls @ 200 mls/hr IVPB Q12 [facility] Last Admin: 04/03/17 22:01 Dose: 200 mls/hr Meropenem 500 mg/ Dextrose 100 mls @ 100 mls/hr IVPB Q24H [facility] Last Admin: 04/03/17 10:01 Dose: 100 mls/hr Insulin Glargine (Lantus) 10 unit SC HS [facility] Last Admin: 04/03/17 22:04 Dose: Not Given Insulin Human Regular (Novolin R) 0 unit SC ACHS GUILLERMO PRN Reason: Protocol Last Admin: 04/03/17 22:01 Dose: Not Given Ondansetron HCl (Zofran Inj) 4 mg IVP Q4 PRN PRN Reason: Nausea/Vomiting Vitamin B Complex/Vit C/Folic Acid (Nephro-Cony) 1 tab PO 0800 [facility] Last Admin: 04/03/17 08:16 Dose: 1 tab - Labs Labs: 04/03/17 06:30 04/03/17 06:30 PT 11.7 SECONDS (9.7-12.2) 03/13/17 08:31 INR 1.0 03/13/17 08:31 APTT 41 SECONDS (21-34) H 03/13/17 08:31
[2017-04-04] MEDS: HYDROmorphone 0.5 mg/0.5 ml ISec IVP PRN (02:30)
[2017-04-04] MEDS: Albuterol-Ipratrop 3 mg / 0.5 (3 ml) UD INH SCH ×5 (03:01→20:06)
[2017-04-04 07:01] LABS: BASO # 0.1 K/uL (0.0-0.2); BASO % 1.1 % (0.0-2.0); EOS # 0.1 K/uL (0.0-0.7); HEMATOCRIT 30.5 % (34.0-47.0); LYMPH # 1.5 K/uL (1.0-4.3); MEAN CELL VOLUME 91.2 fL (81.0-99.0); MEAN CORPUSCULAR HEMOGLOBIN 30.2 pg (27.0-31.0); MEAN CORPUSCULAR HGB CONC 33.1 g/dL (33.0-37.0); MEAN PLATELET VOLUME 7.5 fL (7.2-11.7); MONO # 0.9 K/uL (0.0-0.8); MONO % 8.6 % (0.0-10.0); NRBC % 0.1 % (0.0-2.0)
[2017-04-04] MEDS ORDERED: DiphenhydrAMINE 50 mg/ml Inj IVP STA (07:10)
[2017-04-04 07:22] LABS: POTASSIUM 3.7 mmol/L (3.6-5.2)
[2017-04-04 07:24] LABS: ALB/GLOB RATIO 0.7 (1.0-2.1); BILIRUBIN,TOTAL 0.5 mg/dL (0.2-1.3); PHOSPHOROUS 3.8 mg/dL (2.5-4.5); TOTAL PROTEIN 6.5 g/dL (6.3-8.3)
[2017-04-04 07:25] LABS: CALCIUM 8.4 mg/dl (8.6-10.4)
[2017-04-04] MEDS: Multivitamin Vitamin B Complex (Nephro-Vite) Tab PO SCH (08:09)
[2017-04-04] MEDS: (Novolin R) Insulin Human Regular 100 units/ml vial SC SCH ×4 (08:09→22:49)
[2017-04-04] MEDS ORDERED: Midazolam 2 MG/2 ML VIAL ONE ×2 (08:45→09:03)
[2017-04-04] MEDS ORDERED: Propofol 10 mg/ml Inj (20 ML) ONE (08:45)
--- NOTE | 2017-04-04 08:45 | CP.PCM.PN ---
Subjective - Date & Time of Evaluation Date of Evaluation: 04/04/17 Time of Evaluation: 08:44 - Subjective Subjective: patient not no test done Objective - Vital Signs/Intake and Output Vital Signs (last 24 hours): Temp Pulse Resp BP Pulse Ox 98.1 F 89 15 164/77 H 100 04/04/17 08:00 04/04/17 07:29 04/04/17 07:29 04/04/17 07:29 04/03/17 18:37 Intake and Output: 04/04/17 04/04/17 06:59 18:59 Intake Total 420 0 Output Total 380 0 Balance 40 0 - Medications Medications: Current Medications Acetaminophen (Tylenol 325mg Tab) 650 mg PO Q6 PRN PRN Reason: Pain, Mild (1-3) Last Admin: 04/03/17 15:05 Dose: 650 mg Albuterol/Ipratropium (Duoneb 3 Mg/0.5 Mg (3 Ml) Ud) 3 ml INH RQ4 [facility] Last Admin: 04/04/17 07:44 Dose: Not Given Aspirin (Ecotrin) 81 mg PO DAILY [facility] Last Admin: 04/03/17 10:13 Dose: 81 mg Benzocaine/Menthol (Cepacol Sore Throat) 1 poppy MT QID PRN PRN Reason: Sore Throat Carvedilol (Coreg) 12.5 mg PO BID [facility] Last Admin: 04/03/17 18:36 Dose: 12.5 mg Dextrose (Dextrose 50% Inj) 0 ml IV STAT PRN; Protocol PRN Reason: Hyglycemia Protocol Last Admin: 03/13/17 07:17 Dose: 25 ml Dextrose (Glutose 15) 0 gm PO ONCE PRN; Protocol PRN Reason: Hypoglycemia Protocol Last Admin: 03/26/17 07:17 Dose: 15 gm Epoetin Alec (Procrit) 10,000 unit IV TTS [facility] Last Admin: 04/02/17 12:47 Dose: 10,000 unit Famotidine (Pepcid) 20 mg PO DAILY [facility] Last Admin: 04/03/17 10:13 Dose: 20 mg Hydromorphone HCl (Dilaudid) 0.5 mg IVP Q4 PRN PRN Reason: Pain, moderate (4-7) Last Admin: 04/04/17 02:30 Dose: 0.5 mg Linezolid (Zyvox 600mg/300ml D5w) 600 mg in 300 mls @ 200 mls/hr IVPB Q12 [facility] Last Admin: 04/03/17 22:01 Dose: 200 mls/hr Meropenem 500 mg/ Dextrose 100 mls @ 100 mls/hr IVPB Q24H [facility] Last Admin: 04/03/17 10:01 Dose: 100 mls/hr Insulin Glargine (Lantus) 10 unit SC HS [facility] Last Admin: 04/03/17 22:04 Dose: Not Given Insulin Human Regular (Novolin R) 0 unit SC ACHS [facility] PRN Reason: Protocol Last Admin: 04/04/17 08:09 Dose: Not Given Ondansetron HCl (Zofran Inj) 4 mg IVP Q4 PRN PRN Reason: Nausea/Vomiting Vitamin B Complex/Vit C/Folic Acid (Nephro-Cony) 1 tab PO 0800 [facility] Last Admin: 04/04/17 08:09 Dose: Not Given - Labs Labs: 04/04/17 06:58 04/04/17 06:58 PT 11.7 SECONDS (9.7-12.2) 03/13/17 08:31 INR 1.0 03/13/17 08:31 APTT 41 SECONDS (21-34) H 03/13/17 08:31
[2017-04-04] MEDS ORDERED: Etomidate 20 mg/10ml Inj IV ONE (08:46)
[2017-04-04] MEDS ORDERED: Sodium Chloride 0.9% 500 ML IV ONE (09:10)
[2017-04-04] MEDS: Linezolid 600 mg in D5W 300 ml 600 MG/300 ML BAG IVPB SCH ×2 (09:24→21:47)
[2017-04-04] MEDS: Meropenem 500 MG in Dextrose 5% In Water 100 ML IVPB SCH (09:50)
--- NOTE | 2017-04-04 09:53 | CP.PCM.PN ---
Subjective - Date & Time of Evaluation Date of Evaluation: 04/04/17 Time of Evaluation: 09:51 - Subjective Subjective: Sent to OR for planned right BKA Last dialysis 04/02 Now more hyponatremic- 126 BP still sl elevated Will need dialysis post op due to hyponatremia, fluid management Objective - Vital Signs/Intake and Output Vital Signs (last 24 hours): Temp Pulse Resp BP Pulse Ox 98.1 F 89 15 164/77 H 100 04/04/17 08:00 04/04/17 07:29 04/04/17 07:29 04/04/17 07:29 04/03/17 18:37 Intake and Output: 04/04/17 04/04/17 06:59 18:59 Intake Total 420 0 Output Total 380 0 Balance 40 0 - Medications Medications: Current Medications Acetaminophen (Tylenol 325mg Tab) 650 mg PO Q6 PRN PRN Reason: Pain, Mild (1-3) Last Admin: 04/03/17 15:05 Dose: 650 mg Albuterol/Ipratropium (Duoneb 3 Mg/0.5 Mg (3 Ml) Ud) 3 ml INH RQ4 [facility] Last Admin: 04/04/17 07:44 Dose: Not Given Aspirin (Ecotrin) 81 mg PO DAILY [facility] Last Admin: 04/03/17 10:13 Dose: 81 mg Benzocaine/Menthol (Cepacol Sore Throat) 1 poppy MT QID PRN PRN Reason: Sore Throat Carvedilol (Coreg) 12.5 mg PO BID [facility] Last Admin: 04/03/17 18:36 Dose: 12.5 mg Dextrose (Dextrose 50% Inj) 0 ml IV STAT PRN; Protocol PRN Reason: Hyglycemia Protocol Last Admin: 03/13/17 07:17 Dose: 25 ml Dextrose (Glutose 15) 0 gm PO ONCE PRN; Protocol PRN Reason: Hypoglycemia Protocol Last Admin: 03/26/17 07:17 Dose: 15 gm Epoetin Alec (Procrit) 10,000 unit IV TTS [facility] Last Admin: 04/02/17 12:47 Dose: 10,000 unit Famotidine (Pepcid) 20 mg PO DAILY [facility] Last Admin: 04/03/17 10:13 Dose: 20 mg Hydromorphone HCl (Dilaudid) 0.5 mg IVP Q4 PRN PRN Reason: Pain, moderate (4-7) Last Admin: 04/04/17 02:30 Dose: 0.5 mg Linezolid (Zyvox 600mg/300ml D5w) 600 mg in 300 mls @ 200 mls/hr IVPB Q12 [facility] Last Admin: 04/03/17 22:01 Dose: 200 mls/hr Meropenem 500 mg/ Dextrose 100 mls @ 100 mls/hr IVPB Q24H [facility] Last Admin: 04/03/17 10:01 Dose: 100 mls/hr Insulin Glargine (Lantus) 10 unit SC HS [facility] Last Admin: 04/03/17 22:04 Dose: Not Given Insulin Human Regular (Novolin R) 0 unit SC ACHS [facility] PRN Reason: Protocol Last Admin: 04/04/17 08:09 Dose: Not Given Ondansetron HCl (Zofran Inj) 4 mg IVP Q4 PRN PRN Reason: Nausea/Vomiting Vitamin B Complex/Vit C/Folic Acid (Nephro-Cony) 1 tab PO 0800 [facility] Last Admin: 04/04/17 08:09 Dose: Not Given - Labs Labs: 04/04/17 06:58 04/04/17 06:58 PT 11.7 SECONDS (9.7-12.2) 03/13/17 08:31 INR 1.0 03/13/17 08:31 APTT 41 SECONDS (21-34) H 03/13/17 08:31 - Constitutional Appears: Chronically Ill - Neck Exam Neck Exam: Normal Inspection. absent: Tenderness - Respiratory Exam Respiratory Exam: Rhonchi, NORMAL BREATHING PATTERN - Cardiovascular Exam Cardiovascular Exam: REGULAR RHYTHM, +S1 - GI/Abdominal Exam GI & Abdominal Exam: Soft, Tenderness - Extremities Exam Extremities Exam: Normal Inspection. absent: Tenderness - Neurological Exam Neurological Exam: Awake, CN II-XII Intact - Skin Skin Exam: Dry, Warm Assessment and Plan (1) Type 1 diabetes mellitus with diabetic nephropathy Status: Acute (2) Gangrene of right foot Status: Acute (3) End stage renal disease Status: Acute (4) Fecal impaction Status: Acute (5) CHF (congestive heart failure) Status: Acute - Assessment and Plan (Free Text) Plan: Dialysis post op for fluid removal
[2017-04-04] MEDS ORDERED: Neostigmine Methylsulfate 3mg/3ml Syringe IV ONE (10:20)
--- NOTE | 2017-04-04 10:30 | PCM.SURG1 ---
Surgeon's Initial Post Op Note - Surgeon's Notes Surgeon: Dr. Clark Mushroom Sorter Grader: Giuseppe PGY3, Taras PGY1, Brenda PGY1 Type of Anesthesia: General Endo Anesthesia Administered By: Dr. Berrios Pre-Operative Diagnosis: PAD Operative Findings: see operative report Post-Operative Diagnosis: PAD Operation Performed: Right BKA Specimen/Specimens Removed: R lower leg Estimated Blood Loss: EBL {In ML}: 100 Blood Products Given: N/A Drains Used: No Drains Post-Op Condition: Good Date of Surgery/Procedure: 04/04/17 Time of Surgery/Procedure: 09:15
--- NOTE | 2017-04-04 12:09 | CP.CCUPN ---
<RadhaAudrey L. - Last Filed: 04/04/17 12:18> CCU Subjective - Physician Review Subjective (Free Text): Patient seen and examined at bedside and in no acute distress. Patient POD#0 s/ p R BKA with Dr. Clark. Patient says she has some pain in her right leg, but does not like to get too many narcotics. Patient is lying comfortably. Patient denies shortness of breath, chest pain or abdominal pain. Patient is hungry. Son is at bedside. 04/04/17 12:18 CCU Objective - Vital Signs / Intake & Output Vital Signs (Last 4 hours): Vital Signs BP 04/04/17 10:45 121/72 Intake and Output (Last 8hrs): Intake & Output 04/03/17 04/04/17 04/04/17 22:59 06:59 14:59 Intake Total 520 100 400 Output Total 280 380 0 Balance 240 -280 400 Intake: IV 400 Intake, IV Amount 200 100 Right PICC 200 100 Oral 320 0 0 Output: Drainage 30 30 Left Abdomen 30 30 Urine 0 0 0 Urine, Voided 0 0 0 Stool 250 350 - Physical Exam Head: Positive for: Atraumatic, Normocephalic Respiratory/Chest: Positive for: Good Air Exchange. Negative for: Respiratory Distress, Accessory Muscle Use Cardiovascular: Positive for: Regular Rate and Rhythm, Normal S1, S2 Abdomen: Positive for: Ostomy Tubes (ileostomy with stool output), Other (c/d/i dressing over incision, drain in place with serosangiounous drainage ). Negative for: Tenderness (appropriate s/p surgery), Distention (ileostomy ) Lower Extremity: Positive for: Other (s/p right leg BKA, dressing c/d/i ). Negative for: Normal Inspection (right foot amputation, necrotic wound wrapped in d/c/i dressing) Neurological: Positive for: GCS=15 Skin: Positive for: Warm Psychiatric: Positive for: Alert, Oriented x 3 - Medications Active Medications: Active Medications Generic Name Dose Route Start Last Admin Trade Name Freq PRN Reason Stop Dose Admin Acetaminophen 650 mg 03/09/17 20:48 04/03/17 15:05 Tylenol 325mg Tab PO 650 mg Q6 PRN Administration Pain, Mild (1-3) Albuterol/Ipratropium 3 ml 04/01/17 20:30 11/02/17 11:02 Duoneb 3 Mg/0.5 Mg (3 Ml) Ud INH Not Given RQ4 GUILLERMO Aspirin 81 mg 04/01/17 10:15 04/03/17 10:13 Ecotrin PO 81 mg DAILY GUILLERMO Administration Benzocaine/Menthol 1 poppy 03/27/17 16:19 Cepacol Sore Throat MT QID PRN Sore Throat Carvedilol 12.5 mg 04/03/17 18:00 04/04/17 10:45 Coreg PO 12.5 mg BID GUILLERMO Administration Dextrose 0 ml 03/13/17 07:03 03/13/17 07:17 Dextrose 50% Inj IV 25 ml STAT PRN Administration Hyglycemia Protocol Protocol Dextrose 0 gm 03/13/17 07:03 03/26/17 07:17 Glutose 15 PO 15 gm ONCE PRN Administration Hypoglycemia Protocol Protocol Epoetin Alec 10,000 unit 04/02/17 12:15 04/02/17 12:47 Procrit IV 10,000 unit TTS GUILLERMO Administration Famotidine 20 mg 04/01/17 11:30 04/04/17 10:45 Pepcid PO 20 mg DAILY GUILLERMO Administration Hydromorphone HCl 1 mg 04/04/17 10:29 04/04/17 10:45 Dilaudid IVP 1 mg Q3 PRN Administration Pain, moderate (4-7) Linezolid 600 mg in 300 mls @ 200 mls/hr 03/28/17 22:00 04/04/17 09:24 Zyvox 600mg/300ml D5w IVPB 300 mls Q12 GUILLERMO Administration Meropenem 500 mg/ Dextrose 100 mls @ 100 mls/hr 04/02/17 09:00 04/04/17 09:50 IVPB 100 mls Q24H GUILLERMO Administration Insulin Glargine 10 unit 03/13/17 22:15 04/03/17 22:04 Lantus SC Not Given HS GUILLERMO Insulin Human Regular 0 unit 03/20/17 16:30 04/04/17 08:09 Novolin R SC Not Given ACHS [facility] Protocol Ondansetron HCl 4 mg 03/27/17 22:36 Zofran Inj IVP Q4 PRN Nausea/Vomiting Vitamin B Complex/Vit C/Folic Acid 1 tab 04/02/17 08:00 04/04/17 08:09 Nephro-Cony PO Not Given 0800 GUILLERMO - Patient Studies Lab Studies: Lab Studies 04/04/17 04/04/17 04/04/17 Range/Units 09:27 07:26 06:58 WBC 11.0 H (4.8-10.8) K/uL RBC 3.34 L (3.80-5.20) Mil/uL Hgb 10.1 L (11.0-16.0) g/dL Hct 30.5 L (34.0-47.0) % MCV 91.2 (81.0-99.0) fL MCH 30.2 (27.0-31.0) pg MCHC 33.1 (33.0-37.0) g/dL RDW 15.0 H (11.5-14.5) % Plt Count 289 (130-400) K/uL MPV 7.5 (7.2-11.7) fL Neut % (Auto) 75.3 H (50.0-75.0) % Lymph % (Auto) 14.0 L (20.0-40.0) % [place] % (Auto) 8.6 (0.0-10.0) % Eos % (Auto) 1.0 (0.0-4.0) % Baso % (Auto) 1.1 (0.0-2.0) % Neut # 8.3 H (1.8-7.0) K/uL Lymph # 1.5 (1.0-4.3) K/uL [place] # 0.9 H (0.0-0.8) K/uL Eos # 0.1 (0.0-0.7) K/uL Baso # 0.1 (0.0-0.2) K/uL Sodium (132-148) mmol/L Potassium (3.6-5.2) mmol/L Chloride (98-107) mmol/L Carbon Dioxide (22-30) mmol/L Anion Gap (10-20) BUN (7-17) mg/dL Creatinine (0.7-1.2) mg/dL Est GFR ( Amer) Est GFR (Non-Af Amer) POC Glucose (mg/dL) 235 H (65-110) mg/dL Random Glucose (65-105) mg/dL Calcium (8.6-10.4) mg/dl Phosphorus (2.5-4.5) mg/dL Magnesium (1.6-2.3) mg/dL % Saturation (20-55) Ferritin ng/mL Total Bilirubin (0.2-1.3) mg/dL AST (14-36) U/L ALT (9-52) U/L Alkaline Phosphatase (38-126) U/L Total Protein (6.3-8.3) g/dL Albumin (3.5-5.0) g/dL Globulin (2.2-3.9) gm/dL Albumin/Globulin Ratio (1.0-2.1) PTH Intact Whole Molec (14-64) pg/mL Blood Type O POSITIVE Antibody Screen Negative Crossmatch See Detail 04/04/17 04/04/17 04/03/17 Range/Units 06:58 06:58 21:29 WBC (4.8-10.8) K/uL RBC (3.80-5.20) Mil/uL Hgb (11.0-16.0) g/dL Hct (34.0-47.0) % MCV (81.0-99.0) fL MCH (27.0-31.0) pg MCHC (33.0-37.0) g/dL RDW (11.5-14.5) % Plt Count (130-400) K/uL MPV (7.2-11.7) fL Neut % (Auto) (50.0-75.0) % Lymph % (Auto) (20.0-40.0) % [place] % (Auto) (0.0-10.0) % Eos % (Auto) (0.0-4.0) % Baso % (Auto) (0.0-2.0) % Neut # (1.8-7.0) K/uL Lymph # (1.0-4.3) K/uL [place] # (0.0-0.8) K/uL Eos # (0.0-0.7) K/uL Baso # (0.0-0.2) K/uL Sodium 126 L (132-148) mmol/L Potassium 3.7 (3.6-5.2) mmol/L Chloride 92 L (98-107) mmol/L Carbon Dioxide 23 (22-30) mmol/L Anion Gap 15 (10-20) BUN 26 H (7-17) mg/dL Creatinine 6.4 H (0.7-1.2) mg/dL Est GFR ( Amer) 8 Est GFR (Non-Af Amer) 7 POC Glucose (mg/dL) 239 H (65-110) mg/dL Random Glucose 182 H (65-105) mg/dL Calcium 8.4 L (8.6-10.4) mg/dl Phosphorus 3.8 (2.5-4.5) mg/dL Magnesium 2.0 (1.6-2.3) mg/dL % Saturation 15 L (20-55) Ferritin 1070.0 ng/mL Total Bilirubin 0.5 (0.2-1.3) mg/dL AST 18 (14-36) U/L ALT 32 (9-52) U/L Alkaline Phosphatase 110 (38-126) U/L Total Protein 6.5 (6.3-8.3) g/dL Albumin 2.6 L (3.5-5.0) g/dL Globulin 3.9 (2.2-3.9) gm/dL Albumin/Globulin Ratio 0.7 L (1.0-2.1) PTH Intact Whole Molec (14-64) pg/mL Blood Type Antibody Screen Crossmatch 04/03/17 04/03/17 04/02/17 Range/Units 16:30 11:57 06:20 WBC (4.8-10.8) K/uL RBC (3.80-5.20) Mil/uL Hgb (11.0-16.0) g/dL Hct (34.0-47.0) % MCV (81.0-99.0) fL MCH (27.0-31.0) pg MCHC (33.0-37.0) g/dL RDW (11.5-14.5) % Plt Count (130-400) K/uL MPV (7.2-11.7) fL Neut % (Auto) (50.0-75.0) % Lymph % (Auto) (20.0-40.0) % [place] % (Auto) (0.0-10.0) % Eos % (Auto) (0.0-4.0) % Baso % (Auto) (0.0-2.0) % Neut # (1.8-7.0) K/uL Lymph # (1.0-4.3) K/uL [place] # (0.0-0.8) K/uL Eos # (0.0-0.7) K/uL Baso # (0.0-0.2) K/uL Sodium (132-148) mmol/L Potassium (3.6-5.2) mmol/L Chloride (98-107) mmol/L Carbon Dioxide (22-30) mmol/L Anion Gap (10-20) BUN (7-17) mg/dL Creatinine (0.7-1.2) mg/dL Est GFR ( Amer) Est GFR (Non-Af Amer) POC Glucose (mg/dL) 303 H 195 H (65-110) mg/dL Random Glucose (65-105) mg/dL Calcium (8.6-10.4) mg/dl Phosphorus (2.5-4.5) mg/dL Magnesium (1.6-2.3) mg/dL % Saturation (20-55) Ferritin ng/mL Total Bilirubin (0.2-1.3) mg/dL AST (14-36) U/L ALT (9-52) U/L Alkaline Phosphatase (38-126) U/L Total Protein (6.3-8.3) g/dL Albumin (3.5-5.0) g/dL Globulin (2.2-3.9) gm/dL Albumin/Globulin Ratio (1.0-2.1) PTH Intact Whole Molec 251 H (14-64) pg/mL Blood Type Antibody Screen Crossmatch Laboratory Results - last 24 hr 04/02/17 04/03/17 04/03/17 06:20 11:57 16:30 WBC RBC Hgb Hct MCV MCH MCHC RDW Plt Count MPV Neut % (Auto) Lymph % (Auto) [place] % (Auto) Eos % (Auto) Baso % (Auto) Neut # Lymph # [place] # Eos # Baso # Sodium Potassium Chloride Carbon Dioxide Anion Gap BUN Creatinine Est GFR ( Amer) Est GFR (Non-Af Amer) POC Glucose (mg/dL) 195 H 303 H Random Glucose Calcium Phosphorus Magnesium % Saturation Ferritin Total Bilirubin AST ALT Alkaline Phosphatase Total Protein Albumin Globulin Albumin/Globulin Ratio PTH Intact Whole Molec 251 H Blood Type Antibody Screen Crossmatch 04/03/17 04/04/17 04/04/17 21:29 06:58 06:58 WBC RBC Hgb Hct MCV MCH MCHC RDW Plt Count MPV Neut % (Auto) Lymph % (Auto) [place] % (Auto) Eos % (Auto) Baso % (Auto) Neut # Lymph # [place] # Eos # Baso # Sodium 126 L Potassium 3.7 Chloride 92 L Carbon Dioxide 23 Anion Gap 15 BUN 26 H Creatinine 6.4 H Est GFR ( Amer) 8 Est GFR (Non-Af Amer) 7 POC Glucose (mg/dL) 239 H Random Glucose 182 H Calcium 8.4 L Phosphorus 3.8 Magnesium 2.0 % Saturation 15 L Ferritin 1070.0 Total Bilirubin 0.5 AST 18 ALT 32 Alkaline Phosphatase 110 Total Protein 6.5 Albumin 2.6 L Globulin 3.9 Albumin/Globulin Ratio 0.7 L PTH Intact Whole Molec Blood Type Antibody Screen Crossmatch 04/04/17 04/04/17 04/04/17 06:58 07:26 09:27 WBC 11.0 H RBC 3.34 L Hgb 10.1 L Hct 30.5 L MCV 91.2 MCH 30.2 MCHC 33.1 RDW 15.0 H Plt Count 289 MPV 7.5 Neut % (Auto) 75.3 H Lymph % (Auto) 14.0 L [place] % (Auto) 8.6 Eos % (Auto) 1.0 Baso % (Auto) 1.1 Neut # 8.3 H Lymph # 1.5 [place] # 0.9 H Eos # 0.1 Baso # 0.1 Sodium Potassium Chloride Carbon Dioxide Anion Gap BUN Creatinine Est GFR ( Amer) Est GFR (Non-Af Amer) POC Glucose (mg/dL) 235 H Random Glucose Calcium Phosphorus Magnesium % Saturation Ferritin Total Bilirubin AST ALT Alkaline Phosphatase Total Protein Albumin Globulin Albumin/Globulin Ratio PTH Intact Whole Molec Blood Type O POSITIVE Antibody Screen Negative Crossmatch See Detail Fingerstick Blood Sugar Results: 235 Review of Systems - Constitutional Constitutional: absent: Fever, Chills, Sweats - Cardiovascular Cardiovascular: absent: Chest Pain at Rest, Dyspnea - Respiratory Respiratory: absent: Cough, Dyspnea, Wheezing - Gastrointestinal Gastrointestinal: Nausea. absent: Abdominal Pain, Vomiting - Musculoskeletal Musculoskeletal: Other (appropriate pain s/p R BKA) Critical Care Progress Note - Nutrition Nutrition: Nutrition Category Date Time Status Renal Diet [DIET] Diets 04/04/17 Lunch Active Assessment/Plan - Assessment and Plan (Free Text) Assessment: 51 y/o F with pmhx of ESRD, hypertension, high cholesterol, uncontrolled DMII, PAD, ischemic right leg POD#6 s/p exploratory lap with subtotal colectomy with ileostomy and R subclavian permacath readmitted to ICU for respiratory distress. POD#0 s/p R BKA. Neuro:intact Cardio: hx htn, CHF * s/p emergent dialysis for CHF on night of 03/31 monitor Plavix 75mg po daily to restart tomorrow Aspirin 81mg po daily to restart tomorrow Carvedilol 12.5 mg po BID Pulm: Duonebs Cxray (03/31): moderate to severe venous congestion with pathcy bibasilar airspace opacities and small bilateral pleural effusions Renal: hx ESRD, POD #6 s/p R subclavian permacath Dr. Macdonald consulted, help appreciated explained fluid/ salt restriction as per Dr. Macdonald Dialysis to be done today Endo: hx DMII Lantus 10 u sc hs R ISS accuchecks GI: s/p exploratory lap POD#5 with subtotal colectomy Renal diet ileostomy functioning well MSK: POD# 0 s/p R BKA 02/27: positive wound culture for Serratia Marcescens and Vanco resistant E. faecium Dr. Ordonez consulted, help appreciated antibiotics as below BKA done today by Dr. Clark Heme: Procrit ID: Dr. Cronin consulted, help appreciated Linezolid Meropenem Prophylaxis: DVT: Heparin 5000 sc q12h to restart tomorrow GI: not currently indicated pain management post BKA as per surgical team <Kem Garrido - Last Filed: 04/04/17 18:54> CCU Objective - Vital Signs / Intake & Output Vital Signs (Last 4 hours): Vital Signs Temp Pulse Pulse Resp BP BP BP 04/04/17 17:59 86 10 L 104/73 04/04/17 17:45 97.4 F L 89 9 L 86/47 L 04/04/17 17:15 89/62 L 04/04/17 17:02 85 9 L 84/51 L 04/04/17 16:45 88/48 L 04/04/17 16:15 86/46 L 04/04/17 16:05 87 9 L 158/104 H 04/04/17 16:00 98.2 F 04/04/17 15:45 80/39 L 04/04/17 15:32 88 9 L 71/36 L 04/04/17 15:15 84/38 L 04/04/17 15:00 84/44 L Pulse Ox 04/04/17 17:59 98 04/04/17 17:45 95 04/04/17 17:15 04/04/17 17:02 96 04/04/17 16:45 04/04/17 16:15 04/04/17 16:05 81 L 04/04/17 16:00 04/04/17 15:45 04/04/17 15:32 04/04/17 15:15 04/04/17 15:00 Intake and Output (Last 8hrs): Intake & Output 04/04/17 04/04/17 04/04/17 06:59 14:59 22:59 Intake Total 100 900 0 Output Total 380 0 0 Balance -280 900 0 Weight 172 lb Intake: IV 400 Intake, IV Amount 100 Right PICC 100 Oral 0 500 0 Output: Drainage 30 Left Abdomen 30 Urine 0 0 0 Urine, Voided 0 0 0 Stool 350 - Medications Active Medications: Active Medications Generic Name Dose Route Start Last Admin Trade Name Freq PRN Reason Stop Dose Admin Acetaminophen 650 mg 03/09/17 20:48 04/03/17 15:05 Tylenol 325mg Tab PO 650 mg Q6 PRN Administration Pain, Mild (1-3) Albuterol/Ipratropium 3 ml 04/01/17 20:30 04/04/17 11:02 Duoneb 3 Mg/0.5 Mg (3 Ml) Ud INH Not Given RQ4 GUILLERMO Aspirin 81 mg 04/01/17 10:15 04/03/17 10:13 Ecotrin PO 81 mg DAILY GUILLERMO Administration Benzocaine/Menthol 1 poppy 03/27/17 16:19 Cepacol Sore Throat MT QID PRN Sore Throat Carvedilol 12.5 mg 04/03/17 18:00 04/04/17 18:24 Coreg PO Not Given BID [facility] Clopidogrel Bisulfate 75 mg 04/05/17 10:00 Plavix PO DAILY GUILLERMO Dextrose 0 ml 03/13/17 07:03 03/13/17 07:17 Dextrose 50% Inj IV 25 ml STAT PRN Administration Hyglycemia Protocol Protocol Dextrose 0 gm 03/13/17 07:03 03/26/17 07:17 Glutose 15 PO 15 gm ONCE PRN Administration Hypoglycemia Protocol Protocol Epoetin Alec 10,000 unit 04/02/17 12:15 04/04/17 15:34 Procrit IV 10,000 unit TTS GUILLERMO Administration Famotidine 20 mg 04/01/17 11:30 04/04/17 10:45 Pepcid PO 20 mg DAILY UGILLERMO Administration Heparin Sodium (Porcine) 5,000 units 04/05/17 10:00 Heparin SC Q12 GUILLERMO Hydromorphone HCl 1 mg 04/04/17 10:29 04/04/17 13:45 Dilaudid IVP 1 mg Q3 PRN Administration Pain, moderate (4-7) Linezolid 600 mg in 300 mls @ 200 mls/hr 03/28/17 22:00 04/04/17 09:24 Zyvox 600mg/300ml D5w IVPB 300 mls Q12 GUILLERMO Administration Meropenem 500 mg/ Dextrose 100 mls @ 100 mls/hr 04/02/17 09:00 04/04/17 09:50 IVPB 100 mls Q24H GUILLERMO Administration Insulin Glargine 10 unit 03/13/17 22:15 04/03/17 22:04 Lantus SC Not Given HS [facility] Insulin Human Regular 0 unit 03/20/17 16:30 04/04/17 16:30 Novolin R SC Not Given ACHS [facility] Protocol Ondansetron HCl 4 mg 03/27/17 22:36 Zofran Inj IVP Q4 PRN Nausea/Vomiting Vitamin B Complex/Vit C/Folic Acid 1 tab 04/02/17 08:00 04/04/17 08:09 Nephro-Cony PO Not Given 0800 GUILLERMO - Patient Studies Lab Studies: Lab Studies 04/04/17 04/04/17 04/04/17 Range/Units 16:23 11:47 09:27 WBC (4.8-10.8) K/uL RBC (3.80-5.20) Mil/uL Hgb (11.0-16.0) g/dL Hct (34.0-47.0) % MCV (81.0-99.0) fL MCH (27.0-31.0) pg MCHC (33.0-37.0) g/dL RDW (11.5-14.5) % Plt Count (130-400) K/uL MPV (7.2-11.7) fL Neut % (Auto) (50.0-75.0) % Lymph % (Auto) (20.0-40.0) % [place] % (Auto) (0.0-10.0) % Eos % (Auto) (0.0-4.0) % Baso % (Auto) (0.0-2.0) % Neut # (1.8-7.0) K/uL Lymph # (1.0-4.3) K/uL [place] # (0.0-0.8) K/uL Eos # (0.0-0.7) K/uL Baso # (0.0-0.2) K/uL Sodium (132-148) mmol/L Potassium (3.6-5.2) mmol/L Chloride (98-107) mmol/L Carbon Dioxide (22-30) mmol/L Anion Gap (10-20) BUN (7-17) mg/dL Creatinine (0.7-1.2) mg/dL Est GFR ( Amer) Est GFR (Non-Af Amer) POC Glucose (mg/dL) 171 H 220 H (65-110) mg/dL Random Glucose (65-105) mg/dL Calcium (8.6-10.4) mg/dl Phosphorus (2.5-4.5) mg/dL Magnesium (1.6-2.3) mg/dL % Saturation (20-55) Ferritin ng/mL Total Bilirubin (0.2-1.3) mg/dL AST (14-36) U/L ALT (9-52) U/L Alkaline Phosphatase (38-126) U/L Total Protein (6.3-8.3) g/dL Albumin (3.5-5.0) g/dL Globulin (2.2-3.9) gm/dL Albumin/Globulin Ratio (1.0-2.1) Blood Type O POSITIVE Antibody Screen Negative Crossmatch See Detail 04/04/17 04/04/17 04/04/17 Range/Units 07:26 06:58 06:58 WBC 11.0 H (4.8-10.8) K/uL RBC 3.34 L (3.80-5.20) Mil/uL Hgb 10.1 L (11.0-16.0) g/dL Hct 30.5 L (34.0-47.0) % MCV 91.2 (81.0-99.0) fL MCH 30.2 (27.0-31.0) pg MCHC 33.1 (33.0-37.0) g/dL RDW 15.0 H (11.5-14.5) % Plt Count 289 (130-400) K/uL MPV 7.5 (7.2-11.7) fL Neut % (Auto) 75.3 H (50.0-75.0) % Lymph % (Auto) 14.0 L (20.0-40.0) % [place] % (Auto) 8.6 (0.0-10.0) % Eos % (Auto) 1.0 (0.0-4.0) % Baso % (Auto) 1.1 (0.0-2.0) % Neut # 8.3 H (1.8-7.0) K/uL Lymph # 1.5 (1.0-4.3) K/uL [place] # 0.9 H (0.0-0.8) K/uL Eos # 0.1 (0.0-0.7) K/uL Baso # 0.1 (0.0-0.2) K/uL Sodium (132-148) mmol/L Potassium (3.6-5.2) mmol/L Chloride (98-107) mmol/L Carbon Dioxide (22-30) mmol/L Anion Gap (10-20) BUN (7-17) mg/dL Creatinine (0.7-1.2) mg/dL Est GFR ( Amer) Est GFR (Non-Af Amer) POC Glucose (mg/dL) 235 H (65-110) mg/dL Random Glucose (65-105) mg/dL Calcium (8.6-10.4) mg/dl Phosphorus (2.5-4.5) mg/dL Magnesium (1.6-2.3) mg/dL % Saturation 15 L (20-55) Ferritin ng/mL Total Bilirubin (0.2-1.3) mg/dL AST (14-36) U/L ALT (9-52) U/L Alkaline Phosphatase (38-126) U/L Total Protein (6.3-8.3) g/dL Albumin (3.5-5.0) g/dL Globulin (2.2-3.9) gm/dL Albumin/Globulin Ratio (1.0-2.1) Blood Type Antibody Screen Crossmatch 04/04/17 04/03/17 Range/Units 06:58 21:29 WBC (4.8-10.8) K/uL RBC (3.80-5.20) Mil/uL Hgb (11.0-16.0) g/dL Hct (34.0-47.0) % MCV (81.0-99.0) fL MCH (27.0-31.0) pg MCHC (33.0-37.0) g/dL RDW (11.5-14.5) % Plt Count (130-400) K/uL MPV (7.2-11.7) fL Neut % (Auto) (50.0-75.0) % Lymph % (Auto) (20.0-40.0) % [place] % (Auto) (0.0-10.0) % Eos % (Auto) (0.0-4.0) % Baso % (Auto) (0.0-2.0) % Neut # (1.8-7.0) K/uL Lymph # (1.0-4.3) K/uL [place] # (0.0-0.8) K/uL Eos # (0.0-0.7) K/uL Baso # (0.0-0.2) K/uL Sodium 126 L (132-148) mmol/L Potassium 3.7 (3.6-5.2) mmol/L Chloride 92 L (98-107) mmol/L Carbon Dioxide 23 (22-30) mmol/L Anion Gap 15 (10-20) BUN 26 H (7-17) mg/dL Creatinine 6.4 H (0.7-1.2) mg/dL Est GFR ( Amer) 8 Est GFR (Non-Af Amer) 7 POC Glucose (mg/dL) 239 H (65-110) mg/dL Random Glucose 182 H (65-105) mg/dL Calcium 8.4 L (8.6-10.4) mg/dl Phosphorus 3.8 (2.5-4.5) mg/dL Magnesium 2.0 (1.6-2.3) mg/dL % Saturation (20-55) Ferritin 1070.0 ng/mL Total Bilirubin 0.5 (0.2-1.3) mg/dL AST 18 (14-36) U/L ALT 32 (9-52) U/L Alkaline Phosphatase 110 (38-126) U/L Total Protein 6.5 (6.3-8.3) g/dL Albumin 2.6 L (3.5-5.0) g/dL Globulin 3.9 (2.2-3.9) gm/dL Albumin/Globulin Ratio 0.7 L (1.0-2.1) Blood Type Antibody Screen Crossmatch Laboratory Results - last 24 hr 04/03/17 04/04/17 04/04/17 21:29 06:58 06:58 WBC RBC Hgb Hct MCV MCH MCHC RDW Plt Count MPV Neut % (Auto) Lymph % (Auto) [place] % (Auto) Eos % (Auto) Baso % (Auto) Neut # Lymph # [place] # Eos # Baso # Sodium 126 L Potassium 3.7 Chloride 92 L Carbon Dioxide 23 Anion Gap 15 BUN 26 H Creatinine 6.4 H Est GFR ( Amer) 8 Est GFR (Non-Af Amer) 7 POC Glucose (mg/dL) 239 H Random Glucose 182 H Calcium 8.4 L Phosphorus 3.8 Magnesium 2.0 % Saturation 15 L Ferritin 1070.0 Total Bilirubin 0.5 AST 18 ALT 32 Alkaline Phosphatase 110 Total Protein 6.5 Albumin 2.6 L Globulin 3.9 Albumin/Globulin Ratio 0.7 L Blood Type Antibody Screen Crossmatch 04/04/17 04/04/17 04/04/17 06:58 07:26 09:27 WBC 11.0 H RBC 3.34 L Hgb 10.1 L Hct 30.5 L MCV 91.2 MCH 30.2 MCHC 33.1 RDW 15.0 H Plt Count 289 MPV 7.5 Neut % (Auto) 75.3 H Lymph % (Auto) 14.0 L [place] % (Auto) 8.6 Eos % (Auto) 1.0 Baso % (Auto) 1.1 Neut # 8.3 H Lymph # 1.5 [place] # 0.9 H Eos # 0.1 Baso # 0.1 Sodium Potassium Chloride Carbon Dioxide Anion Gap BUN Creatinine Est GFR ( Amer) Est GFR (Non-Af Amer) POC Glucose (mg/dL) 235 H Random Glucose Calcium Phosphorus Magnesium % Saturation Ferritin Total Bilirubin AST ALT Alkaline Phosphatase Total Protein Albumin Globulin Albumin/Globulin Ratio Blood Type O POSITIVE Antibody Screen Negative Crossmatch See Detail 04/04/17 04/04/17 11:47 16:23 WBC RBC Hgb Hct MCV MCH MCHC RDW Plt Count MPV Neut % (Auto) Lymph % (Auto) [place] % (Auto) Eos % (Auto) Baso % (Auto) Neut # Lymph # [place] # Eos # Baso # Sodium Potassium Chloride Carbon Dioxide Anion Gap BUN Creatinine Est GFR ( Amer) Est GFR (Non-Af Amer) POC Glucose (mg/dL) 220 H 171 H Random Glucose Calcium Phosphorus Magnesium % Saturation Ferritin Total Bilirubin AST ALT Alkaline Phosphatase Total Protein Albumin Globulin Albumin/Globulin Ratio Blood Type Antibody Screen Crossmatch Critical Care Progress Note - Nutrition Nutrition: Nutrition Category Date Time Status Renal Diet [DIET] Diets 04/04/17 Lunch Active Attending/Attestation - Attestation I have personally seen and examined this patient.: Yes I have fully participated in the care of the patient.: Yes I have reviewed all pertinent clinical information: Yes Notes (Text): 04/04/17 18:53 Today: April The Patient was seen and examined at the bedside, Medical records reviewed, and management issues were discussed and formulated with the house staff. I have reviewed all the relevant clinical, laboratory, hemodynamic, radiographic data and medications Events reviewed Pain issues, skin care, head of the bed elevation, glycemic control were addressed S/p BKA today, hemodynamically stable, afebrile, continue current ICU management , antibiotics, wound care Pain control. I concur with resident's assessment and plan of care as transcribed in Dr. Garcia note.
--- NOTE | 2017-04-04 13:40 | OP ---
PROCEDURE DATE: 04/04/2017 PREOPERATIVE DIAGNOSIS: Gangrene of right foot. POSTOPERATIVE DIAGNOSIS: Gangrene of right foot. PROCEDURE: Right below-knee amputation. SURGEON: Harman Clark Jr., MD [employer] SUPERVISOR: Dr. Chávez and Dr. Chin. ANESTHESIA ADMINISTERED BY: Dr. Berrios. INDICATIONS: A 51-year-old woman, on dialysis, has patent bypass in her leg, had-had re-intervened stents placed in the bypass. This was widely patent with excellent blood flow. OPERATIVE FINDINGS: Standard below-knee amputation was carried out. Blood loss was 100 to 150 mL. DESCRIPTION OF PROCEDURE: The patient was given general anesthesia and intravenous antibiotics. Standard right below-knee amputation was carried out. Prior to the operation, site had been marked and discussed with the patient. Posterior flap was obtained. Hemostasis was obtained. Blood loss as mentioned. After clamping off the pulsatile popliteal artery with suture ligatures, we then flapped this up, divided the tibia and the fibula at the appropriate level, trimmed it as appropriate, and sutured the wound closed. Blood loss has been mentioned. The patient tolerated the procedure well. A standard dressing was applied. The operation carried out was a right below-knee amputation. Hraman Clark Jr., MD
[2017-04-04] MEDS: EPOETIN ALFA 10,000 UNIT/ML ML IV SCH (15:34)
[2017-04-04] MEDS: (Lantus) Insulin Glargine, Recombinant SC SCH (22:05)
[2017-04-04] MEDS ORDERED: Oxycodone/Acetaminophen 5/325 mg Tab PO STA (22:19)
[2017-04-04] MEDS: DiphenhydrAMINE 50 mg/ml Inj IVP PRN (23:03)
[2017-04-05] MEDS: Albuterol-Ipratrop 3 mg / 0.5 (3 ml) UD INH SCH ×6 (00:26→20:17)
[2017-04-05] MEDS: DiphenhydrAMINE 50 mg/ml Inj IVP PRN ×3 (03:44→20:08)
[2017-04-05 07:25] LABS: POTASSIUM 3.7 mmol/L (3.6-5.2)
[2017-04-05 07:28] LABS: ALB/GLOB RATIO 0.9 (1.0-2.1); BILIRUBIN,TOTAL 0.6 mg/dL (0.2-1.3); TOTAL PROTEIN 4.9 g/dL (6.3-8.3)
[2017-04-05 07:29] LABS: CALCIUM 7.4 mg/dl (8.6-10.4); MAGNESIUM 1.7 mg/dL (1.6-2.3)
[2017-04-05 07:34] LABS: BASO # 0.1 K/uL (0.0-0.2); BASO % 0.5 % (0.0-2.0); EOS # 0.1 K/uL (0.0-0.7); EOS % 0.4 % (0.0-4.0); HEMATOCRIT 25.7 % (34.0-47.0); LYMPH # 1.5 K/uL (1.0-4.3); LYMPH % 11.2 % (20.0-40.0); MEAN CELL VOLUME 92.5 fL (81.0-99.0); MEAN CORPUSCULAR HEMOGLOBIN 29.8 pg (27.0-31.0); MEAN CORPUSCULAR HGB CONC 32.2 g/dL (33.0-37.0); MEAN PLATELET VOLUME 7.6 fL (7.2-11.7); MONO % 7.5 % (0.0-10.0); NRBC % 0.1 % (0.0-2.0); RED CELL DISTRIBUTION WIDTH 16.1 % (11.5-14.5); WHITE BLOOD COUNT 13.3 K/uL (4.8-10.8)
[2017-04-05] MEDS: (Novolin R) Insulin Human Regular 100 units/ml vial SC SCH ×6 (08:09→21:55)
[2017-04-05] MEDS: Meropenem 500 MG in Dextrose 5% In Water 100 ML IVPB SCH (08:09)
[2017-04-05] MEDS: Multivitamin Vitamin B Complex (Nephro-Vite) Tab PO SCH (08:09)
[2017-04-05] MEDS: Benzocaine/Menthol (Cepacol) Lozenge MT PRN (08:29)
[2017-04-05] MEDS: Linezolid 600 mg in D5W 300 ml 600 MG/300 ML BAG IVPB SCH ×2 (09:49→22:00)
--- NOTE | 2017-04-05 10:03 | CP.PCM.PN ---
Subjective - Date & Time of Evaluation Date of Evaluation: 04/04/17 Time of Evaluation: 10:03 Objective - Vital Signs/Intake and Output Vital Signs (last 24 hours): Temp Pulse Resp BP Pulse Ox 98 F 105 H 13 149/66 96 04/05/17 04:00 04/05/17 06:59 04/05/17 06:59 04/05/17 09:52 04/05/17 06:59 Intake and Output: 04/05/17 04/05/17 06:59 18:59 Intake Total 400 0 Output Total 0 5 Balance 400 -5 - Medications Medications: Current Medications Acetaminophen (Tylenol 325mg Tab) 650 mg PO Q6 PRN PRN Reason: Pain, Mild (1-3) Last Admin: 04/03/17 15:05 Dose: 650 mg Albuterol/Ipratropium (Duoneb 3 Mg/0.5 Mg (3 Ml) Ud) 3 ml INH RQ4 [facility] Last Admin: 04/05/17 00:26 Dose: Not Given Aspirin (Ecotrin) 81 mg PO DAILY [facility] Last Admin: 04/05/17 09:52 Dose: 81 mg Benzocaine/Menthol (Cepacol Sore Throat) 1 poppy MT QID PRN PRN Reason: Sore Throat Last Admin: 04/05/17 08:29 Dose: 1 poppy Carvedilol (Coreg) 12.5 mg PO BID [facility] Last Admin: 04/05/17 09:52 Dose: 12.5 mg Clopidogrel Bisulfate (Plavix) 75 mg PO DAILY [facility] Last Admin: 04/05/17 09:57 Dose: 75 mg Dextrose (Dextrose 50% Inj) 0 ml IV STAT PRN; Protocol PRN Reason: Hyglycemia Protocol Last Admin: 03/13/17 07:17 Dose: 25 ml Dextrose (Glutose 15) 0 gm PO ONCE PRN; Protocol PRN Reason: Hypoglycemia Protocol Last Admin: 03/26/17 07:17 Dose: 15 gm Diphenhydramine HCl (Benadryl) 25 mg IVP Q4 PRN PRN Reason: Itching / Pruritus Last Admin: 04/05/17 09:56 Dose: 25 mg Epoetin Alec (Procrit) 10,000 unit IV TTS [facility] Last Admin: 04/04/17 15:34 Dose: 10,000 unit Famotidine (Pepcid) 20 mg PO DAILY [facility] Last Admin: 04/05/17 09:52 Dose: 20 mg Heparin Sodium (Porcine) (Heparin) 5,000 units SC Q12 [facility] Last Admin: 04/05/17 09:57 Dose: 5,000 units Hydromorphone HCl (Dilaudid) 1.5 mg IVP Q3H PRN PRN Reason: Pain, moderate (4-7) Last Admin: 04/05/17 08:10 Dose: 1.5 mg Linezolid (Zyvox 600mg/300ml D5w) 600 mg in 300 mls @ 200 mls/hr IVPB Q12 [facility] Last Admin: 04/05/17 09:49 Dose: 200 mls/hr Meropenem 500 mg/ Dextrose 100 mls @ 100 mls/hr IVPB Q24H [facility] Last Admin: 04/05/17 08:09 Dose: 100 mls/hr Insulin Glargine (Lantus) 10 unit SC HS [facility] Last Admin: 04/04/17 22:05 Dose: Not Given Insulin Human Regular (Novolin R) 0 unit SC ACHS [facility] PRN Reason: Protocol Last Admin: 04/05/17 08:25 Dose: 1 unit Ondansetron HCl (Zofran Inj) 4 mg IVP Q4 PRN PRN Reason: Nausea/Vomiting Vitamin B Complex/Vit C/Folic Acid (Nephro-Cony) 1 tab PO 0800 [facility] Last Admin: 04/05/17 08:09 Dose: 1 tab - Labs Labs: 04/05/17 07:08 04/05/17 07:08 PT 11.7 SECONDS (9.7-12.2) 03/13/17 08:31 INR 1.0 03/13/17 08:31 APTT 41 SECONDS (21-34) H 03/13/17 08:31
[2017-04-05] MEDS: HYDROmorphone 1 mg/ml ISec IVP PRN ×4 (11:45→20:36)
--- NOTE | 2017-04-05 14:13 | CP.PCM.PN ---
Subjective - Date & Time of Evaluation Date of Evaluation: 04/05/17 Time of Evaluation: 14:10 - Subjective Subjective: Alert; post right BKA 04/04 BP better s/p dialysis 04/04; Na level improveed today only c/o pain right limb Objective - Vital Signs/Intake and Output Vital Signs (last 24 hours): Temp Pulse Resp BP Pulse Ox 98 F 105 H 13 149/66 96 04/05/17 04:00 04/05/17 06:59 04/05/17 06:59 04/05/17 09:52 04/05/17 06:59 Intake and Output: 04/05/17 04/05/17 06:59 18:59 Intake Total 400 0 Output Total 0 5 Balance 400 -5 - Medications Medications: Current Medications Acetaminophen (Tylenol 325mg Tab) 650 mg PO Q6 PRN PRN Reason: Pain, Mild (1-3) Last Admin: 04/03/17 15:05 Dose: 650 mg Albuterol/Ipratropium (Duoneb 3 Mg/0.5 Mg (3 Ml) Ud) 3 ml INH RQ4 [facility] Last Admin: 04/05/17 12:54 Dose: Not Given Aspirin (Ecotrin) 81 mg PO DAILY [facility] Last Admin: 04/05/17 09:52 Dose: 81 mg Benzocaine/Menthol (Cepacol Sore Throat) 1 poppy MT QID PRN PRN Reason: Sore Throat Last Admin: 04/05/17 08:29 Dose: 1 poppy Carvedilol (Coreg) 12.5 mg PO BID [facility] Last Admin: 04/05/17 09:52 Dose: 12.5 mg Clopidogrel Bisulfate (Plavix) 75 mg PO DAILY [facility] Last Admin: 04/05/17 09:57 Dose: 75 mg Dextrose (Dextrose 50% Inj) 0 ml IV STAT PRN; Protocol PRN Reason: Hyglycemia Protocol Last Admin: 03/13/17 07:17 Dose: 25 ml Dextrose (Glutose 15) 0 gm PO ONCE PRN; Protocol PRN Reason: Hypoglycemia Protocol Last Admin: 03/26/17 07:17 Dose: 15 gm Diphenhydramine HCl (Benadryl) 25 mg IVP Q4 PRN PRN Reason: Itching / Pruritus Last Admin: 04/05/17 09:56 Dose: 25 mg Epoetin Alec (Procrit) 10,000 unit IV TTS [facility] Last Admin: 04/04/17 15:34 Dose: 10,000 unit Famotidine (Pepcid) 20 mg PO DAILY [facility] Last Admin: 04/05/17 09:52 Dose: 20 mg Heparin Sodium (Porcine) (Heparin) 5,000 units SC Q12 [facility] Hydromorphone HCl (Dilaudid) 1 mg IVP Q3H PRN PRN Reason: Pain, moderate (4-7) Last Admin: 04/05/17 11:45 Dose: 1 mg Linezolid (Zyvox 600mg/300ml D5w) 600 mg in 300 mls @ 200 mls/hr IVPB Q12 [facility] Last Admin: 04/05/17 09:49 Dose: 200 mls/hr Meropenem 500 mg/ Dextrose 100 mls @ 100 mls/hr IVPB Q24H [facility] Last Admin: 04/05/17 08:09 Dose: 100 mls/hr Insulin Glargine (Lantus) 10 unit SC HS [facility] Last Admin: 04/04/17 22:05 Dose: Not Given Insulin Human Regular (Novolin R) 0 unit SC ACHS [facility] PRN Reason: Protocol Last Admin: 04/05/17 11:53 Dose: 2 unit Ondansetron HCl (Zofran Inj) 4 mg IVP Q4 PRN PRN Reason: Nausea/Vomiting Vitamin B Complex/Vit C/Folic Acid (Nephro-Cony) 1 tab PO 0800 [facility] Last Admin: 04/05/17 08:09 Dose: 1 tab - Labs Labs: 04/05/17 07:08 04/05/17 07:08 PT 11.7 SECONDS (9.7-12.2) 03/13/17 08:31 INR 1.0 03/13/17 08:31 APTT 41 SECONDS (21-34) H 03/13/17 08:31 - Constitutional Appears: No Acute Distress, Chronically Ill - Head Exam Head Exam: ATRAUMATIC, NORMAL INSPECTION - Eye Exam Eye Exam: EOMI, Normal appearance - Neck Exam Neck Exam: Normal Inspection. absent: Tenderness - Respiratory Exam Respiratory Exam: Clear to Ausculation Bilateral, NORMAL BREATHING PATTERN - Cardiovascular Exam Cardiovascular Exam: REGULAR RHYTHM, +S1 - GI/Abdominal Exam GI & Abdominal Exam: Soft. absent: Tenderness - Extremities Exam Extremities Exam: Normal Inspection. absent: Tenderness - Neurological Exam Neurological Exam: Alert, CN II-XII Intact - Skin Skin Exam: Dry, Warm Assessment and Plan (1) Type 1 diabetes mellitus with diabetic nephropathy Status: Acute (2) Gangrene of right foot Status: Acute (3) End stage renal disease Status: Acute (4) Fecal impaction Status: Acute (5) CHF (congestive heart failure) Status: Acute - Assessment and Plan (Free Text) Plan: Dialysis MWF f/u lytes pain management
--- NOTE | 2017-04-05 16:57 | CP.PCM.PN ---
Subjective - Date & Time of Evaluation Date of Evaluation: 04/05/17 Time of Evaluation: 07:00 - Subjective Subjective: c/o pain s/p BKA cont isolation for now IV rx renewed Objective - Vital Signs/Intake and Output Vital Signs (last 24 hours): Temp Pulse Resp BP Pulse Ox 98 F 106 H 13 159/76 H 81 L 04/05/17 04:00 04/05/17 14:00 04/05/17 14:00 04/05/17 13:59 04/05/17 13:00 Intake and Output: 04/05/17 04/05/17 06:59 18:59 Intake Total 400 680 Output Total 0 5 Balance 400 675 - Medications Medications: Current Medications Acetaminophen (Tylenol 325mg Tab) 650 mg PO Q6 PRN PRN Reason: Pain, Mild (1-3) Last Admin: 04/03/17 15:05 Dose: 650 mg Albuterol/Ipratropium (Duoneb 3 Mg/0.5 Mg (3 Ml) Ud) 3 ml INH RQ4 [facility] Last Admin: 04/05/17 12:54 Dose: Not Given Aspirin (Ecotrin) 81 mg PO DAILY [facility] Last Admin: 04/05/17 09:52 Dose: 81 mg Benzocaine/Menthol (Cepacol Sore Throat) 1 poppy MT QID PRN PRN Reason: Sore Throat Last Admin: 04/05/17 08:29 Dose: 1 poppy Carvedilol (Coreg) 12.5 mg PO BID [facility] Last Admin: 04/05/17 09:52 Dose: 12.5 mg Clopidogrel Bisulfate (Plavix) 75 mg PO DAILY [facility] Last Admin: 04/05/17 09:57 Dose: 75 mg Dextrose (Dextrose 50% Inj) 0 ml IV STAT PRN; Protocol PRN Reason: Hyglycemia Protocol Last Admin: 03/13/17 07:17 Dose: 25 ml Dextrose (Glutose 15) 0 gm PO ONCE PRN; Protocol PRN Reason: Hypoglycemia Protocol Last Admin: 03/26/17 07:17 Dose: 15 gm Diphenhydramine HCl (Benadryl) 25 mg IVP Q4 PRN PRN Reason: Itching / Pruritus Last Admin: 04/05/17 09:56 Dose: 25 mg Epoetin Alec (Procrit) 10,000 unit IV TTS [facility] Last Admin: 04/04/17 15:34 Dose: 10,000 unit Famotidine (Pepcid) 20 mg PO DAILY [facility] Last Admin: 04/05/17 09:52 Dose: 20 mg Heparin Sodium (Porcine) (Heparin) 5,000 units SC Q12 [facility] Hydromorphone HCl (Dilaudid) 1 mg IVP Q3H PRN PRN Reason: Pain, moderate (4-7) Last Admin: 04/05/17 14:30 Dose: 1 mg Linezolid (Zyvox 600mg/300ml D5w) 600 mg in 300 mls @ 200 mls/hr IVPB Q12 [facility] Last Admin: 04/05/17 09:49 Dose: 200 mls/hr Meropenem 500 mg/ Dextrose 100 mls @ 100 mls/hr IVPB Q24H [facility] Last Admin: 04/05/17 08:09 Dose: 100 mls/hr Insulin Glargine (Lantus) 10 unit SC HS [facility] Last Admin: 04/04/17 22:05 Dose: Not Given Insulin Human Regular (Novolin R) 0 unit SC ACHS [facility] PRN Reason: Protocol Last Admin: 04/05/17 11:53 Dose: 2 unit Ondansetron HCl (Zofran Inj) 4 mg IVP Q4 PRN PRN Reason: Nausea/Vomiting Vitamin B Complex/Vit C/Folic Acid (Nephro-Cony) 1 tab PO 0800 [facility] Last Admin: 04/05/17 08:09 Dose: 1 tab - Labs Labs: 04/05/17 07:08 04/05/17 07:08 PT 11.7 SECONDS (9.7-12.2) 03/13/17 08:31 INR 1.0 03/13/17 08:31 APTT 41 SECONDS (21-34) H 03/13/17 08:31 - Constitutional Appears: Non-toxic, Chronically Ill - Head Exam Head Exam: NORMOCEPHALIC - Eye Exam Eye Exam: absent: Scleral icterus - ENT Exam ENT Exam: Mucous Membranes Dry - Neck Exam Neck Exam: absent: Lymphadenopathy - Respiratory Exam Respiratory Exam: Decreased Breath Sounds - Cardiovascular Exam Cardiovascular Exam: REGULAR RHYTHM - GI/Abdominal Exam GI & Abdominal Exam: Distended Assessment and Plan (1) Gangrene of right foot Status: Acute (2) Chronic anemia Status: Acute (3) Chronic congestive heart failure Status: Acute (4) Diabetes mellitus Status: Acute (5) ESRD on peritoneal dialysis Status: Acute
--- NOTE | 2017-04-05 17:39 | CP.PCM.PN ---
Subjective - Date & Time of Evaluation Date of Evaluation: 04/05/17 Time of Evaluation: 07:00 - Subjective Subjective: SURGERY PROGRESS NOTE FOR DR. SANTIAGO Patient seen and examined at bedside in the ICU. She is tolerating her regular/ renal diet. She denies nausea or vomiting. Patient states her pain is controlled with the dilaudid. There is liquid stool output into the ileostomy. Knee immobilizer in place. Objective - Vital Signs/Intake and Output Vital Signs (last 24 hours): Temp Pulse Resp BP Pulse Ox 98 F 106 H 13 137/63 81 L 04/05/17 04:00 04/05/17 14:00 04/05/17 14:00 04/05/17 17:24 04/05/17 13:00 Intake and Output: 04/05/17 04/05/17 06:59 18:59 Intake Total 400 680 Output Total 0 5 Balance 400 675 - Medications Medications: Current Medications Acetaminophen (Tylenol 325mg Tab) 650 mg PO Q6 PRN PRN Reason: Pain, Mild (1-3) Last Admin: 04/03/17 15:05 Dose: 650 mg Albuterol/Ipratropium (Duoneb 3 Mg/0.5 Mg (3 Ml) Ud) 3 ml INH RQ4 [facility] Last Admin: 04/05/17 12:54 Dose: Not Given Aspirin (Ecotrin) 81 mg PO DAILY [facility] Last Admin: 04/05/17 09:52 Dose: 81 mg Benzocaine/Menthol (Cepacol Sore Throat) 1 poppy MT QID PRN PRN Reason: Sore Throat Last Admin: 04/05/17 08:29 Dose: 1 poppy Carvedilol (Coreg) 12.5 mg PO BID [facility] Last Admin: 04/05/17 17:24 Dose: 12.5 mg Clopidogrel Bisulfate (Plavix) 75 mg PO DAILY [facility] Last Admin: 04/05/17 09:57 Dose: 75 mg Dextrose (Dextrose 50% Inj) 0 ml IV STAT PRN; Protocol PRN Reason: Hyglycemia Protocol Last Admin: 03/13/17 07:17 Dose: 25 ml Dextrose (Glutose 15) 0 gm PO ONCE PRN; Protocol PRN Reason: Hypoglycemia Protocol Last Admin: 03/26/17 07:17 Dose: 15 gm Diphenhydramine HCl (Benadryl) 25 mg IVP Q4 PRN PRN Reason: Itching / Pruritus Last Admin: 04/05/17 09:56 Dose: 25 mg Epoetin Alec (Procrit) 10,000 unit IV TTS [facility] Last Admin: 04/04/17 15:34 Dose: 10,000 unit Famotidine (Pepcid) 20 mg PO DAILY [facility] Last Admin: 04/05/17 09:52 Dose: 20 mg Heparin Sodium (Porcine) (Heparin) 5,000 units SC Q12 [facility] Hydromorphone HCl (Dilaudid) 1 mg IVP Q3H PRN PRN Reason: Pain, moderate (4-7) Last Admin: 04/05/17 14:30 Dose: 1 mg Linezolid (Zyvox 600mg/300ml D5w) 600 mg in 300 mls @ 200 mls/hr IVPB Q12 [facility] Last Admin: 04/05/17 09:49 Dose: 200 mls/hr Meropenem 500 mg/ Dextrose 100 mls @ 100 mls/hr IVPB Q24H [facility] Last Admin: 04/05/17 08:09 Dose: 100 mls/hr Insulin Glargine (Lantus) 10 unit SC HS [facility] Last Admin: 04/04/17 22:05 Dose: Not Given Insulin Human Regular (Novolin R) 0 unit SC ACHS [facility] PRN Reason: Protocol Last Admin: 04/05/17 17:24 Dose: 2 unit Ondansetron HCl (Zofran Inj) 4 mg IVP Q4 PRN PRN Reason: Nausea/Vomiting Vitamin B Complex/Vit C/Folic Acid (Nephro-Cony) 1 tab PO 0800 [facility] Last Admin: 04/05/17 08:09 Dose: 1 tab - Labs Labs: 04/05/17 07:08 04/05/17 07:08 PT 11.7 SECONDS (9.7-12.2) 03/13/17 08:31 INR 1.0 03/13/17 08:31 APTT 41 SECONDS (21-34) H 03/13/17 08:31 - Constitutional Appears: Non-toxic, No Acute Distress - Respiratory Exam Respiratory Exam: NORMAL BREATHING PATTERN. absent: Respiratory Distress - Cardiovascular Exam Cardiovascular Exam: Tachycardia, +S1, +S2 - GI/Abdominal Exam GI & Abdominal Exam: Soft, Tenderness (mild tenderness around incision site). absent: Distended, Firm, Guarding, Rigid Additional comments: Dressings clean/dry/intact - removed, reyes in place Drain in place (connected to previous PD catheter) with 40cc serosanguinous drainage over past 24 hours Ileostomy with stool in bag - Extremities Exam Additional comments: Right BKA stump dressing clean/dry/intact Knee immobilizer in place - Neurological Exam Neurological Exam: Alert, Awake, Oriented x3 - Psychiatric Exam Psychiatric exam: Normal Affect, Normal Mood - Skin Skin Exam: Dry, Normal Color, Warm Assessment and Plan - Assessment and Plan (Free Text) Assessment: 51yo F with dilated colon secondary to fecal retention s/p Exploratory laparotomy, Subtotal colectomy with ileostomy formation POD#8 & chronic RLE PVD , s/p Right BKA POD#1 - Afebrile, mild tachycardia - Hemoblobin decreased from 10.1 to 8.3, will recheck CBC in AM - Stool output into ileostomy - Tolerating renal dialysis/CCD diet - Encouraged OOB, PT, and IS use - Discussed plan with Dr. Eduardo Chin PGY-3
[2017-04-05] MEDS: (Lantus) Insulin Glargine, Recombinant SC SCH (21:59)
[2017-04-06] MEDS: Albuterol-Ipratrop 3 mg / 0.5 (3 ml) UD INH SCH ×6 (00:49→20:03)
[2017-04-06] MEDS: HYDROmorphone 1 mg/ml ISec IVP PRN ×5 (01:24→17:43)
[2017-04-06] MEDS: DiphenhydrAMINE 50 mg/ml Inj IVP PRN ×4 (06:32→21:56)
[2017-04-06 06:47] LABS: HEMATOCRIT 24.1 % (34.0-47.0); MEAN CELL VOLUME 91.9 fL (81.0-99.0); MEAN CORPUSCULAR HEMOGLOBIN 29.5 pg (27.0-31.0); MEAN CORPUSCULAR HGB CONC 32.1 g/dL (33.0-37.0); MEAN PLATELET VOLUME 7.2 fL (7.2-11.7); RED CELL DISTRIBUTION WIDTH 15.9 % (11.5-14.5); WHITE BLOOD COUNT 13.4 K/uL (4.8-10.8)
[2017-04-06 07:00] LABS: POTASSIUM 3.7 mmol/L (3.6-5.2)
[2017-04-06 07:02] LABS: BILIRUBIN,TOTAL 0.6 mg/dL (0.2-1.3); TOTAL PROTEIN 5.1 g/dL (6.3-8.3)
[2017-04-06 07:03] LABS: CALCIUM 7.8 mg/dl (8.6-10.4)
[2017-04-06] MEDS: (Novolin R) Insulin Human Regular 100 units/ml vial SC SCH ×4 (08:40→22:00)
[2017-04-06] MEDS: Meropenem 500 MG in Dextrose 5% In Water 100 ML IVPB SCH (08:42)
[2017-04-06] MEDS: Multivitamin Vitamin B Complex (Nephro-Vite) Tab PO SCH (08:42)
--- NOTE | 2017-04-06 08:56 | CP.PCM.PN ---
Subjective - Date & Time of Evaluation Date of Evaluation: 04/06/17 Time of Evaluation: 08:00 - Subjective Subjective: General Surgery Dr. Clark Pt S&E @bedside. NAEO. pt has no complaints. pain well controlled. denies F/C, N /V. reports phantom limb pain/sensation. tolerating diet. Objective - Vital Signs/Intake and Output Vital Signs (last 24 hours): Temp Pulse Resp BP Pulse Ox 98.4 F 96 H 16 179/81 H 81 L 04/06/17 04:00 04/06/17 06:19 04/06/17 06:19 04/06/17 06:19 04/05/17 13:00 Intake and Output: 04/06/17 04/06/17 06:59 18:59 Intake Total 540 Output Total 810 Balance -270 Selected Entries 04/05/17 04/05/17 04/06/17 18:00 22:00 06:00 Output, 300 Drainage Amount [Ileostomy] Output, 20 20 20 Drainage Amount [Left Abdomen] - Medications Medications: Current Medications Acetaminophen (Tylenol 325mg Tab) 650 mg PO Q6 PRN PRN Reason: Pain, Mild (1-3) Last Admin: 04/03/17 15:05 Dose: 650 mg Albuterol/Ipratropium (Duoneb 3 Mg/0.5 Mg (3 Ml) Ud) 3 ml INH RQ4 [facility] Last Admin: 04/06/17 08:45 Dose: Not Given Aspirin (Ecotrin) 81 mg PO DAILY [facility] Last Admin: 04/05/17 09:52 Dose: 81 mg Benzocaine/Menthol (Cepacol Sore Throat) 1 poppy MT QID PRN PRN Reason: Sore Throat Last Admin: 04/05/17 08:29 Dose: 1 poppy Carvedilol (Coreg) 12.5 mg PO BID [facility] Last Admin: 04/05/17 17:24 Dose: 12.5 mg Clopidogrel Bisulfate (Plavix) 75 mg PO DAILY [facility] Last Admin: 04/05/17 09:57 Dose: 75 mg Dextrose (Dextrose 50% Inj) 0 ml IV STAT PRN; Protocol PRN Reason: Hyglycemia Protocol Last Admin: 03/13/17 07:17 Dose: 25 ml Dextrose (Glutose 15) 0 gm PO ONCE PRN; Protocol PRN Reason: Hypoglycemia Protocol Last Admin: 03/26/17 07:17 Dose: 15 gm Diphenhydramine HCl (Benadryl) 25 mg IVP Q4 PRN PRN Reason: Itching / Pruritus Last Admin: 04/06/17 06:32 Dose: 25 mg Epoetin Alec (Procrit) 10,000 unit IV TTS [facility] Last Admin: 04/04/17 15:34 Dose: 10,000 unit Famotidine (Pepcid) 20 mg PO DAILY [facility] Last Admin: 04/05/17 09:52 Dose: 20 mg Heparin Sodium (Porcine) (Heparin) 5,000 units SC Q12 [facility] Last Admin: 04/05/17 21:59 Dose: 5,000 units Hydromorphone HCl (Dilaudid) 1 mg IVP Q3H PRN PRN Reason: Pain, moderate (4-7) Last Admin: 04/06/17 05:55 Dose: 1 mg Linezolid (Zyvox 600mg/300ml D5w) 600 mg in 300 mls @ 200 mls/hr IVPB Q12 [facility] Last Admin: 04/05/17 22:00 Dose: 200 mls/hr Meropenem 500 mg/ Dextrose 100 mls @ 100 mls/hr IVPB Q24H [facility] Last Admin: 04/06/17 08:42 Dose: 100 mls/hr Insulin Glargine (Lantus) 10 unit SC HS [facility] Last Admin: 04/05/17 21:59 Dose: 10 units Insulin Human Regular (Novolin R) 0 unit SC ACHS [facility] PRN Reason: Protocol Last Admin: 04/06/17 08:40 Dose: 1 unit Ondansetron HCl (Zofran Inj) 4 mg IVP Q4 PRN PRN Reason: Nausea/Vomiting Vitamin B Complex/Vit C/Folic Acid (Nephro-Cony) 1 tab PO 0800 [facility] Last Admin: 04/06/17 08:42 Dose: 1 tab - Labs Labs: 04/06/17 06:34 04/06/17 06:35 PT 11.7 SECONDS (9.7-12.2) 03/13/17 08:31 INR 1.0 03/13/17 08:31 APTT 41 SECONDS (21-34) H 03/13/17 08:31 - Constitutional Appears: Non-toxic, No Acute Distress - Head Exam Head Exam: NORMAL INSPECTION - Eye Exam Eye Exam: Normal appearance - ENT Exam ENT Exam: Mucous Membranes Moist - Respiratory Exam Respiratory Exam: NORMAL BREATHING PATTERN. absent: Accessory Muscle Use, Respiratory Distress - Cardiovascular Exam Cardiovascular Exam: absent: Bradycardia, Tachycardia - GI/Abdominal Exam GI & Abdominal Exam: Soft, Tenderness (shaniqua-incisional TTP). absent: Distended , Guarding, Rebound Additional comments: incision c/d/i ileostomy pink, patent stool present in ostomy bag drain w/ serosanguinous output - Extremities Exam Additional comments: R BKA dressing c/d/i knee immobilizer in place - Neurological Exam Neurological Exam: Alert, Awake, Oriented x3 - Psychiatric Exam Psychiatric exam: Normal Affect, Normal Mood - Skin Skin Exam: Dry, Normal Color, Warm Assessment and Plan - Assessment and Plan (Free Text) Assessment: 51 y/o F POD#8 s/p Ex-lap, subtotal colectomy w/ ileostomy formation and POD#2 s /p Right BKA - cont pain management - change abd dressing PRN - leukocytosis unchanged - cont Abx per ID - Hgb trending down, may need transfusion - monitor ostomy output - Encouraged OOB to chair/PT/IS use Pt discussed w/ Dr. Eduardo Pena DO PGY2
--- NOTE | 2017-04-06 10:20 | CP.PCM.PN ---
Subjective - Date & Time of Evaluation Date of Evaluation: 04/06/17 Time of Evaluation: 10:16 - Subjective Subjective: s/p right BKA c/o pain Na lower- needs increased UF with HD HTN increased- to increase BP meds wounds adressed by surgery Objective - Vital Signs/Intake and Output Vital Signs (last 24 hours): Temp Pulse Resp BP Pulse Ox 98.4 F 96 H 16 179/81 H 81 L 04/06/17 04:00 04/06/17 06:19 04/06/17 06:19 04/06/17 06:19 04/05/17 13:00 Intake and Output: 04/06/17 04/06/17 06:59 18:59 Intake Total 540 Output Total 810 Balance -270 - Medications Medications: Current Medications Acetaminophen (Tylenol 325mg Tab) 650 mg PO Q6 PRN PRN Reason: Pain, Mild (1-3) Last Admin: 04/03/17 15:05 Dose: 650 mg Albuterol/Ipratropium (Duoneb 3 Mg/0.5 Mg (3 Ml) Ud) 3 ml INH RQ4 [facility] Last Admin: 04/06/17 08:45 Dose: Not Given Aspirin (Ecotrin) 81 mg PO DAILY [facility] Last Admin: 04/05/17 09:52 Dose: 81 mg Benzocaine/Menthol (Cepacol Sore Throat) 1 poppy MT QID PRN PRN Reason: Sore Throat Last Admin: 04/05/17 08:29 Dose: 1 poppy Carvedilol (Coreg) 12.5 mg PO BID [facility] Last Admin: 04/05/17 17:24 Dose: 12.5 mg Clopidogrel Bisulfate (Plavix) 75 mg PO DAILY [facility] Last Admin: 04/05/17 09:57 Dose: 75 mg Dextrose (Dextrose 50% Inj) 0 ml IV STAT PRN; Protocol PRN Reason: Hyglycemia Protocol Last Admin: 03/13/17 07:17 Dose: 25 ml Dextrose (Glutose 15) 0 gm PO ONCE PRN; Protocol PRN Reason: Hypoglycemia Protocol Last Admin: 03/26/17 07:17 Dose: 15 gm Diphenhydramine HCl (Benadryl) 25 mg IVP Q4 PRN PRN Reason: Itching / Pruritus Last Admin: 04/06/17 06:32 Dose: 25 mg Epoetin Alec (Procrit) 10,000 unit IV TTS [facility] Last Admin: 04/04/17 15:34 Dose: 10,000 unit Famotidine (Pepcid) 20 mg PO DAILY [facility] Last Admin: 04/05/17 09:52 Dose: 20 mg Heparin Sodium (Porcine) (Heparin) 5,000 units SC Q12 [facility] Last Admin: 04/05/17 21:59 Dose: 5,000 units Hydromorphone HCl (Dilaudid) 1 mg IVP Q3H PRN PRN Reason: Pain, moderate (4-7) Last Admin: 04/06/17 05:55 Dose: 1 mg Linezolid (Zyvox 600mg/300ml D5w) 600 mg in 300 mls @ 200 mls/hr IVPB Q12 [facility] Last Admin: 04/05/17 22:00 Dose: 200 mls/hr Meropenem 500 mg/ Dextrose 100 mls @ 100 mls/hr IVPB Q24H [facility] Last Admin: 04/06/17 08:42 Dose: 100 mls/hr Insulin Glargine (Lantus) 10 unit SC HS [facility] Last Admin: 04/05/17 21:59 Dose: 10 units Insulin Human Regular (Novolin R) 0 unit SC ACHS [facility] PRN Reason: Protocol Last Admin: 04/06/17 08:40 Dose: 1 unit Ondansetron HCl (Zofran Inj) 4 mg IVP Q4 PRN PRN Reason: Nausea/Vomiting Vitamin B Complex/Vit C/Folic Acid (Nephro-Cony) 1 tab PO 0800 [facility] Last Admin: 04/06/17 08:42 Dose: 1 tab - Labs Labs: 04/06/17 06:34 04/06/17 06:35 PT 11.7 SECONDS (9.7-12.2) 03/13/17 08:31 INR 1.0 03/13/17 08:31 APTT 41 SECONDS (21-34) H 03/13/17 08:31 - Constitutional Appears: No Acute Distress, Chronically Ill - Head Exam Head Exam: ATRAUMATIC, NORMAL INSPECTION - Eye Exam Eye Exam: EOMI, Normal appearance - Neck Exam Neck Exam: Normal Inspection. absent: Tenderness - Respiratory Exam Respiratory Exam: Clear to Ausculation Bilateral, NORMAL BREATHING PATTERN - Cardiovascular Exam Cardiovascular Exam: REGULAR RHYTHM, +S1 - GI/Abdominal Exam GI & Abdominal Exam: Soft. absent: Tenderness - Extremities Exam Extremities Exam: Calf Tenderness, Tenderness - Neurological Exam Neurological Exam: Alert, CN II-XII Intact - Skin Skin Exam: Dry, Warm Assessment and Plan (1) Type 1 diabetes mellitus with diabetic nephropathy Status: Acute (2) Gangrene of right foot Status: Acute (3) End stage renal disease Status: Acute (4) Fecal impaction Status: Acute (5) CHF (congestive heart failure) Status: Acute - Assessment and Plan (Free Text) Plan: increase UF with HD oral fluid restriction wound management might need repeat blood transfusion increase BP meds
[2017-04-06] MEDS: Linezolid 600 mg in D5W 300 ml 600 MG/300 ML BAG IVPB SCH ×2 (10:44→21:00)
[2017-04-06] MEDS: EPOETIN ALFA 10,000 UNIT/ML ML IV SCH (19:48)
[2017-04-06] MEDS: (Lantus) Insulin Glargine, Recombinant SC SCH ×2 (21:31→22:00)
--- NOTE | 2017-04-06 22:53 | CP.PCM.PN ---
Subjective - Date & Time of Evaluation Date of Evaluation: 04/06/17 Time of Evaluation: 22:53 Objective - Vital Signs/Intake and Output Vital Signs (last 24 hours): Temp Pulse Resp BP Pulse Ox 97.6 F 92 H 18 91/52 L 100 04/06/17 22:15 04/06/17 22:15 04/06/17 22:15 04/06/17 22:15 04/06/17 22:15 Intake and Output: 04/06/17 04/07/17 18:59 05:59 Intake Total 350 Output Total 205 30 Balance 145 -30 - Medications Medications: Current Medications Acetaminophen (Tylenol 325mg Tab) 650 mg PO Q6 PRN PRN Reason: Pain, Mild (1-3) Last Admin: 04/03/17 15:05 Dose: 650 mg Albuterol/Ipratropium (Duoneb 3 Mg/0.5 Mg (3 Ml) Ud) 3 ml INH RQ4 [facility] Last Admin: 04/06/17 20:03 Dose: 3 ml Aspirin (Ecotrin) 81 mg PO DAILY [facility] Last Admin: 04/06/17 10:21 Dose: 81 mg Benzocaine/Menthol (Cepacol Sore Throat) 1 poppy MT QID PRN PRN Reason: Sore Throat Last Admin: 04/05/17 08:29 Dose: 1 poppy Carvedilol (Coreg) 25 mg PO BID [facility] Last Admin: 04/06/17 17:45 Dose: 25 mg Clopidogrel Bisulfate (Plavix) 75 mg PO DAILY [facility] Last Admin: 04/06/17 10:21 Dose: 75 mg Dextrose (Dextrose 50% Inj) 0 ml IV STAT PRN; Protocol PRN Reason: Hyglycemia Protocol Last Admin: 03/13/17 07:17 Dose: 25 ml Dextrose (Glutose 15) 0 gm PO ONCE PRN; Protocol PRN Reason: Hypoglycemia Protocol Last Admin: 03/26/17 07:17 Dose: 15 gm Diphenhydramine HCl (Benadryl) 25 mg IVP Q4 PRN PRN Reason: Itching / Pruritus Last Admin: 04/06/17 21:56 Dose: 25 mg Epoetin Alec (Procrit) 10,000 unit IV TTS [facility] Last Admin: 04/06/17 19:48 Dose: 10,000 unit Famotidine (Pepcid) 20 mg PO DAILY [facility] Last Admin: 04/06/17 10:24 Dose: 20 mg Heparin Sodium (Porcine) (Heparin) 5,000 units SC Q12 [facility] Last Admin: 04/06/17 21:31 Dose: 5,000 units Hydromorphone HCl (Dilaudid) 1 mg IVP Q3H PRN PRN Reason: Pain, moderate (4-7) Last Admin: 04/06/17 17:43 Dose: 1 mg Linezolid (Zyvox 600mg/300ml D5w) 600 mg in 300 mls @ 200 mls/hr IVPB Q12 [facility] Last Admin: 04/06/17 21:00 Dose: 200 mls/hr Meropenem 500 mg/ Dextrose 100 mls @ 100 mls/hr IVPB Q24H [facility] Last Admin: 04/06/17 08:42 Dose: 100 mls/hr Insulin Glargine (Lantus) 10 unit SC HS [facility] Last Admin: 04/06/17 21:31 Dose: 10 units Insulin Human Regular (Novolin R) 0 unit SC ACHS [facility] PRN Reason: Protocol Last Admin: 04/06/17 17:39 Dose: 2 unit Ondansetron HCl (Zofran Inj) 4 mg IVP Q4 PRN PRN Reason: Nausea/Vomiting Vitamin B Complex/Vit C/Folic Acid (Nephro-Cony) 1 tab PO 0800 [facility] Last Admin: 04/06/17 08:42 Dose: 1 tab - Labs Labs: 04/06/17 06:34 04/06/17 06:35 PT 11.7 SECONDS (9.7-12.2) 03/13/17 08:31 INR 1.0 03/13/17 08:31 APTT 41 SECONDS (21-34) H 03/13/17 08:31
[2017-04-07] MEDS: Albuterol-Ipratrop 3 mg / 0.5 (3 ml) UD INH SCH ×6 (00:59→23:26)
[2017-04-07] MEDS: HYDROmorphone 1 mg/ml ISec IVP PRN ×7 (03:15→22:32)
[2017-04-07] MEDS: DiphenhydrAMINE 50 mg/ml Inj IVP PRN ×5 (03:28→22:32)
[2017-04-07 07:01] LABS: HEMATOCRIT 25.8 % (34.0-47.0); MEAN CELL VOLUME 92.7 fL (81.0-99.0); MEAN CORPUSCULAR HEMOGLOBIN 29.9 pg (27.0-31.0); MEAN CORPUSCULAR HGB CONC 32.2 g/dL (33.0-37.0); MEAN PLATELET VOLUME 7.9 fL (7.2-11.7); RED CELL DISTRIBUTION WIDTH 15.9 % (11.5-14.5); WHITE BLOOD COUNT 12.3 K/uL (4.8-10.8)
[2017-04-07] MEDS: (Novolin R) Insulin Human Regular 100 units/ml vial SC SCH ×4 (09:17→22:35)
[2017-04-07] MEDS: Meropenem 500 MG in Dextrose 5% In Water 100 ML IVPB SCH (09:20)
[2017-04-07] MEDS: Multivitamin Vitamin B Complex (Nephro-Vite) Tab PO SCH (09:26)
[2017-04-07] MEDS: Linezolid 600 mg in D5W 300 ml 600 MG/300 ML BAG IVPB SCH ×2 (10:20→22:30)
[2017-04-07] MEDS ORDERED: Oxycodone/Acetaminophen 5/325 mg Tab PO PRN (10:29)
--- NOTE | 2017-04-07 10:34 | CP.PCM.PN ---
Subjective - Date & Time of Evaluation Date of Evaluation: 04/07/17 Time of Evaluation: 10:31 - Subjective Subjective: Surgery: Dr. Clark Pt seen and examined. Resting comfortably in bed. States that pain is controlled. She states that she has some drainage from midline incision. Objective - Vital Signs/Intake and Output Vital Signs (last 24 hours): Temp Pulse Resp BP Pulse Ox 98.2 F 95 H 18 150/84 100 04/07/17 09:00 04/07/17 09:00 04/07/17 09:00 04/07/17 09:26 04/07/17 09:00 Intake and Output: 04/07/17 04/07/17 06:59 18:59 Intake Total Output Total Balance - Medications Medications: Current Medications Acetaminophen (Tylenol 325mg Tab) 650 mg PO Q6 PRN PRN Reason: Pain, Mild (1-3) Last Admin: 04/03/17 15:05 Dose: 650 mg Albuterol/Ipratropium (Duoneb 3 Mg/0.5 Mg (3 Ml) Ud) 3 ml INH RQ4 [facility] Last Admin: 04/07/17 07:58 Dose: 3 ml Aspirin (Ecotrin) 81 mg PO DAILY [facility] Last Admin: 04/07/17 09:26 Dose: 81 mg Benzocaine/Menthol (Cepacol Sore Throat) 1 poppy MT QID PRN PRN Reason: Sore Throat Last Admin: 04/05/17 08:29 Dose: 1 poppy Carvedilol (Coreg) 25 mg PO BID [facility] Last Admin: 04/07/17 09:26 Dose: 25 mg Clopidogrel Bisulfate (Plavix) 75 mg PO DAILY [facility] Last Admin: 04/07/17 09:27 Dose: 75 mg Dextrose (Dextrose 50% Inj) 0 ml IV STAT PRN; Protocol PRN Reason: Hyglycemia Protocol Last Admin: 03/13/17 07:17 Dose: 25 ml Dextrose (Glutose 15) 0 gm PO ONCE PRN; Protocol PRN Reason: Hypoglycemia Protocol Last Admin: 03/26/17 07:17 Dose: 15 gm Diphenhydramine HCl (Benadryl) 25 mg IVP Q4 PRN PRN Reason: Itching / Pruritus Last Admin: 04/07/17 03:28 Dose: 25 mg Epoetin Alec (Procrit) 10,000 unit IV TTS [facility] Last Admin: 04/06/17 19:48 Dose: 10,000 unit Famotidine (Pepcid) 20 mg PO DAILY [facility] Last Admin: 04/07/17 09:21 Dose: 20 mg Heparin Sodium (Porcine) (Heparin) 5,000 units SC Q12 [facility] Last Admin: 04/07/17 09:15 Dose: 5,000 units Hydromorphone HCl (Dilaudid) 1 mg IVP Q3H PRN PRN Reason: Pain, moderate (4-7) Last Admin: 04/07/17 09:13 Dose: 1 mg Linezolid (Zyvox 600mg/300ml D5w) 600 mg in 300 mls @ 200 mls/hr IVPB Q12 [facility] Last Admin: 04/07/17 10:20 Dose: 200 mls/hr Meropenem 500 mg/ Dextrose 100 mls @ 100 mls/hr IVPB Q24H [facility] Last Admin: 04/07/17 09:20 Dose: 100 mls/hr Insulin Glargine (Lantus) 10 unit SC HS [facility] Last Admin: 04/06/17 22:00 Dose: Not Given Insulin Human Regular (Novolin R) 0 unit SC ACHS [facility] PRN Reason: Protocol Last Admin: 04/07/17 09:17 Dose: 2 unit Ondansetron HCl (Zofran Inj) 4 mg IVP Q4 PRN PRN Reason: Nausea/Vomiting Oxycodone/Acetaminophen (Percocet 5/325 Mg Tab) 1 tab PO Q4H PRN PRN Reason: Pain, moderate (4-7) Stop: 04/10/17 10:30 Vitamin B Complex/Vit C/Folic Acid (Nephro-Cony) 1 tab PO 0800 [facility] Last Admin: 04/07/17 09:26 Dose: 1 tab - Labs Labs: 04/07/17 06:45 04/06/17 06:35 PT 11.7 SECONDS (9.7-12.2) 03/13/17 08:31 INR 1.0 03/13/17 08:31 APTT 41 SECONDS (21-34) H 03/13/17 08:31 - Constitutional Appears: Non-toxic, Older Than Stated Age, Chronically Ill - Head Exam Head Exam: ATRAUMATIC, NORMOCEPHALIC - Eye Exam Eye Exam: EOMI - ENT Exam ENT Exam: Mucous Membranes Moist - Neck Exam Neck Exam: Full ROM - Respiratory Exam Respiratory Exam: NORMAL BREATHING PATTERN. absent: Accessory Muscle Use, Respiratory Distress - GI/Abdominal Exam GI & Abdominal Exam: Soft. absent: Distended, Firm, Guarding, Rigid, Tenderness , Rebound Additional comments: Midline incision, slightly purulent appearing fluid expressed on palpation, no overlying erythema L side kala in place: serous output Stoma [place] and patent - Extremities Exam Additional comments: R BKA, dressing in place, C/D/I - Neurological Exam Neurological Exam: Alert, Awake, Oriented x3 - Psychiatric Exam Psychiatric exam: Normal Affect, Normal Mood Assessment and Plan - Assessment and Plan (Free Text) Assessment: 51F s/p Ex-lap, subtotal colectomy w/ ileostomy formation, POD#11, and s/p Right BKA, POD#3 -small amount of purulent appearing fluid expressed from midline abd incision site, will monitor, change dressing PRN -RLE, leave dressing in place, leave immobilizer in place -c/w pain management -encourage OOB and IS use -d/w attending Zemaitis PGY3
--- NOTE | 2017-04-07 11:56 | CP.PCM.PN ---
Subjective - Date & Time of Evaluation Date of Evaluation: 04/07/17 Time of Evaluation: 08:00 - Subjective Subjective: events noted IV rx in progress prognosisi remains guarded Objective - Vital Signs/Intake and Output Vital Signs (last 24 hours): Temp Pulse Resp BP Pulse Ox 98.2 F 95 H 18 150/84 100 04/07/17 09:00 04/07/17 09:00 04/07/17 09:00 04/07/17 09:26 04/07/17 09:00 Intake and Output: 04/07/17 04/07/17 06:59 18:59 Intake Total Output Total Balance - Medications Medications: Current Medications Acetaminophen (Tylenol 325mg Tab) 650 mg PO Q6 PRN PRN Reason: Pain, Mild (1-3) Last Admin: 04/03/17 15:05 Dose: 650 mg Albuterol/Ipratropium (Duoneb 3 Mg/0.5 Mg (3 Ml) Ud) 3 ml INH RQ4 [facility] Last Admin: 04/07/17 11:39 Dose: 3 ml Aspirin (Ecotrin) 81 mg PO DAILY [facility] Last Admin: 04/07/17 09:26 Dose: 81 mg Benzocaine/Menthol (Cepacol Sore Throat) 1 poppy MT QID PRN PRN Reason: Sore Throat Last Admin: 04/05/17 08:29 Dose: 1 poppy Carvedilol (Coreg) 25 mg PO BID [facility] Last Admin: 04/07/17 09:26 Dose: 25 mg Clopidogrel Bisulfate (Plavix) 75 mg PO DAILY [facility] Last Admin: 04/07/17 09:27 Dose: 75 mg Dextrose (Dextrose 50% Inj) 0 ml IV STAT PRN; Protocol PRN Reason: Hyglycemia Protocol Last Admin: 03/13/17 07:17 Dose: 25 ml Dextrose (Glutose 15) 0 gm PO ONCE PRN; Protocol PRN Reason: Hypoglycemia Protocol Last Admin: 03/26/17 07:17 Dose: 15 gm Diphenhydramine HCl (Benadryl) 25 mg IVP Q4 PRN PRN Reason: Itching / Pruritus Last Admin: 04/07/17 03:28 Dose: 25 mg Epoetin Alec (Procrit) 10,000 unit IV TTS [facility] Last Admin: 04/06/17 19:48 Dose: 10,000 unit Famotidine (Pepcid) 20 mg PO DAILY [facility] Last Admin: 04/07/17 09:21 Dose: 20 mg Heparin Sodium (Porcine) (Heparin) 5,000 units SC Q12 [facility] Last Admin: 04/07/17 09:15 Dose: 5,000 units Hydromorphone HCl (Dilaudid) 1 mg IVP Q3H PRN PRN Reason: Pain, severe (8-10) Linezolid (Zyvox 600mg/300ml D5w) 600 mg in 300 mls @ 200 mls/hr IVPB Q12 [facility] Last Admin: 04/07/17 10:20 Dose: 200 mls/hr Meropenem 500 mg/ Dextrose 100 mls @ 100 mls/hr IVPB Q24H [facility] Last Admin: 04/07/17 09:20 Dose: 100 mls/hr Insulin Glargine (Lantus) 10 unit SC HS [facility] Last Admin: 04/06/17 22:00 Dose: Not Given Insulin Human Regular (Novolin R) 0 unit SC ACHS [facility] PRN Reason: Protocol Last Admin: 04/07/17 09:17 Dose: 2 unit Ondansetron HCl (Zofran Inj) 4 mg IVP Q4 PRN PRN Reason: Nausea/Vomiting Oxycodone/Acetaminophen (Percocet 5/325 Mg Tab) 1 tab PO Q4H PRN PRN Reason: Pain, moderate (4-7) Stop: 04/10/17 10:30 Vitamin B Complex/Vit C/Folic Acid (Nephro-Cony) 1 tab PO 0800 [facility] Last Admin: 04/07/17 09:26 Dose: 1 tab - Labs Labs: 04/07/17 06:45 04/06/17 06:35 PT 11.7 SECONDS (9.7-12.2) 03/13/17 08:31 INR 1.0 03/13/17 08:31 APTT 41 SECONDS (21-34) H 03/13/17 08:31 - Constitutional Appears: Chronically Ill - Head Exam Head Exam: NORMOCEPHALIC - Eye Exam Eye Exam: absent: Scleral icterus - ENT Exam ENT Exam: Mucous Membranes Dry - Neck Exam Neck Exam: absent: Lymphadenopathy - Respiratory Exam Respiratory Exam: Decreased Breath Sounds - Cardiovascular Exam Cardiovascular Exam: REGULAR RHYTHM - GI/Abdominal Exam GI & Abdominal Exam: Distended, Soft - Rectal Exam Rectal Exam: Deferred - Exam Exam: NORMAL INSPECTION Assessment and Plan (1) Gangrene of right foot Status: Acute (2) Chronic anemia Status: Acute (3) Chronic congestive heart failure Status: Acute (4) Diabetes mellitus Status: Acute (5) ESRD on peritoneal dialysis Status: Acute
[2017-04-07 18:32] LABS: BASO # 0.1 K/uL (0.0-0.2); BASO % 1.1 % (0.0-2.0); EOS # 0.1 K/uL (0.0-0.7); EOS % 0.8 % (0.0-4.0); HEMATOCRIT 25.6 % (34.0-47.0); LYMPH # 1.6 K/uL (1.0-4.3); LYMPH % 13.3 % (20.0-40.0); MEAN CELL VOLUME 92.5 fL (81.0-99.0); MEAN CORPUSCULAR HEMOGLOBIN 29.9 pg (27.0-31.0); MEAN CORPUSCULAR HGB CONC 32.4 g/dL (33.0-37.0); MEAN PLATELET VOLUME 7.3 fL (7.2-11.7); MONO # 0.7 K/uL (0.0-0.8); MONO % 6.2 % (0.0-10.0); RED CELL DISTRIBUTION WIDTH 16.2 % (11.5-14.5); WHITE BLOOD COUNT 11.8 K/uL (4.8-10.8)
[2017-04-07 18:43] LABS: POTASSIUM 3.9 mmol/L (3.6-5.2)
[2017-04-07 18:45] LABS: ALB/GLOB RATIO 0.7 (1.0-2.1); BILIRUBIN,TOTAL 0.4 mg/dL (0.2-1.3); TOTAL PROTEIN 6.7 g/dL (6.3-8.3)
[2017-04-07 18:46] LABS: CALCIUM 8.6 mg/dl (8.6-10.4)
[2017-04-07] MEDS: (Lantus) Insulin Glargine, Recombinant SC SCH (22:33)
[2017-04-08] MEDS: HYDROmorphone 1 mg/ml ISec IVP PRN ×5 (02:21→21:50)
[2017-04-08] MEDS: DiphenhydrAMINE 50 mg/ml Inj IVP PRN ×6 (02:22→21:51)
[2017-04-08] MEDS: Albuterol-Ipratrop 3 mg / 0.5 (3 ml) UD INH SCH ×5 (03:08→20:00)
[2017-04-08] MEDS: (Novolin R) Insulin Human Regular 100 units/ml vial SC SCH ×4 (08:30→21:52)
[2017-04-08] MEDS: Meropenem 500 MG in Dextrose 5% In Water 100 ML IVPB SCH (09:00)
[2017-04-08] MEDS: Multivitamin Vitamin B Complex (Nephro-Vite) Tab PO SCH (09:00)
--- NOTE | 2017-04-08 10:33 | CP.PCM.PN ---
Subjective - Date & Time of Evaluation Date of Evaluation: 04/08/17 Time of Evaluation: 07:00 - Subjective Subjective: s/p Exploratory laparotomy, Subtotal colectomy with ileostomy formation & chronic RLE PVD, s/p Right BKA afebrile NAD Objective - Vital Signs/Intake and Output Vital Signs (last 24 hours): Temp Pulse Resp BP Pulse Ox 98.2 F 87 18 135/82 98 04/08/17 08:00 04/08/17 08:00 04/08/17 08:00 04/08/17 09:25 04/08/17 08:00 Intake and Output: 04/08/17 04/08/17 06:59 18:59 Intake Total 120 Output Total 240 375 Balance -240 -255 - Medications Medications: Current Medications Acetaminophen (Tylenol 325mg Tab) 650 mg PO Q8H [facility] Last Admin: 04/08/17 09:34 Dose: Not Given Albuterol/Ipratropium (Duoneb 3 Mg/0.5 Mg (3 Ml) Ud) 3 ml INH RQ4 [facility] Last Admin: 04/08/17 08:16 Dose: 3 ml Aspirin (Ecotrin) 81 mg PO DAILY [facility] Last Admin: 04/08/17 09:19 Dose: 81 mg Benzocaine/Menthol (Cepacol Sore Throat) 1 poppy MT QID PRN PRN Reason: Sore Throat Last Admin: 04/05/17 08:29 Dose: 1 poppy Carvedilol (Coreg) 25 mg PO BID [facility] Last Admin: 04/08/17 09:25 Dose: 25 mg Clopidogrel Bisulfate (Plavix) 75 mg PO DAILY [facility] Last Admin: 04/08/17 09:18 Dose: 75 mg Dextrose (Dextrose 50% Inj) 0 ml IV STAT PRN; Protocol PRN Reason: Hyglycemia Protocol Last Admin: 03/13/17 07:17 Dose: 25 ml Dextrose (Glutose 15) 0 gm PO ONCE PRN; Protocol PRN Reason: Hypoglycemia Protocol Last Admin: 03/26/17 07:17 Dose: 15 gm Diphenhydramine HCl (Benadryl) 25 mg IVP Q4 PRN PRN Reason: Itching / Pruritus Last Admin: 04/08/17 09:13 Dose: 25 mg Epoetin Alec (Procrit) 10,000 unit IV TTS [facility] Last Admin: 04/06/17 19:48 Dose: 10,000 unit Famotidine (Pepcid) 20 mg PO DAILY [facility] Last Admin: 04/08/17 09:18 Dose: 20 mg Heparin Sodium (Porcine) (Heparin) 5,000 units SC Q12 [facility] Last Admin: 04/08/17 09:19 Dose: 5,000 units Hydromorphone HCl (Dilaudid) 1 mg IVP Q3H PRN PRN Reason: Pain, severe (8-10) Last Admin: 04/08/17 09:13 Dose: 1 mg Linezolid (Zyvox 600mg/300ml D5w) 600 mg in 300 mls @ 200 mls/hr IVPB Q12 [facility] Last Admin: 04/07/17 22:30 Dose: 200 mls/hr Meropenem 500 mg/ Dextrose 100 mls @ 100 mls/hr IVPB Q24H [facility] Last Admin: 04/08/17 09:00 Dose: 100 mls/hr Insulin Glargine (Lantus) 10 unit SC HS [facility] Last Admin: 04/07/17 22:33 Dose: 10 units Insulin Human Regular (Novolin R) 0 unit SC ACHS [facility] PRN Reason: Protocol Last Admin: 04/08/17 08:30 Dose: 2 unit Ondansetron HCl (Zofran Inj) 4 mg IVP Q4 PRN PRN Reason: Nausea/Vomiting Oxycodone/Acetaminophen (Percocet 5/325 Mg Tab) 1 tab PO Q4H PRN PRN Reason: Pain, moderate (4-7) Stop: 04/10/17 10:30 Vitamin B Complex/Vit C/Folic Acid (Nephro-Cony) 1 tab PO 0800 [facility] Last Admin: 04/08/17 09:00 Dose: 1 tab - Labs Labs: 04/07/17 18:28 04/07/17 18:28 PT 11.7 SECONDS (9.7-12.2) 03/13/17 08:31 INR 1.0 03/13/17 08:31 APTT 41 SECONDS (21-34) H 03/13/17 08:31 - Constitutional Appears: Non-toxic, Chronically Ill - Head Exam Head Exam: NORMOCEPHALIC - Eye Exam Eye Exam: PERRL - ENT Exam ENT Exam: Normal External Ear Exam - Neck Exam Neck Exam: absent: Lymphadenopathy - Respiratory Exam Respiratory Exam: Decreased Breath Sounds - Cardiovascular Exam Cardiovascular Exam: REGULAR RHYTHM - GI/Abdominal Exam GI & Abdominal Exam: Distended - Rectal Exam Rectal Exam: Deferred - Exam Exam: NORMAL INSPECTION - Extremities Exam Extremities Exam: absent: Pedal Edema - Back Exam Back Exam: absent: CVA tenderness (L), CVA tenderness (R) - Neurological Exam Neurological Exam: Alert, Awake Assessment and Plan (1) Gangrene of right foot Status: Acute (2) Chronic anemia Status: Acute (3) Chronic congestive heart failure Status: Acute (4) Diabetes mellitus Status: Acute (5) ESRD on peritoneal dialysis Status: Acute - Assessment and Plan (Free Text) Assessment: consider d/c antibiotics
--- NOTE | 2017-04-08 11:02 | CP.PCM.PN ---
Subjective - Date & Time of Evaluation Date of Evaluation: 04/08/17 Time of Evaluation: 10:59 - Subjective Subjective: Doing better Wounds healing More alert- but sedated with meds often Stable dialysis 04/06 BP controlled No fevers, chills, nausea, vomiting, HAs Objective - Vital Signs/Intake and Output Vital Signs (last 24 hours): Temp Pulse Resp BP Pulse Ox 98.2 F 87 18 135/82 98 04/08/17 08:00 04/08/17 08:00 04/08/17 08:00 04/08/17 09:25 04/08/17 08:00 Intake and Output: 04/08/17 04/08/17 06:59 18:59 Intake Total 120 Output Total 240 375 Balance -240 -255 - Medications Medications: Current Medications Acetaminophen (Tylenol 325mg Tab) 650 mg PO Q8H [facility] Last Admin: 04/08/17 09:34 Dose: Not Given Albuterol/Ipratropium (Duoneb 3 Mg/0.5 Mg (3 Ml) Ud) 3 ml INH RQ4 [facility] Last Admin: 04/08/17 08:16 Dose: 3 ml Aspirin (Ecotrin) 81 mg PO DAILY [facility] Last Admin: 04/08/17 09:19 Dose: 81 mg Benzocaine/Menthol (Cepacol Sore Throat) 1 poppy MT QID PRN PRN Reason: Sore Throat Last Admin: 04/05/17 08:29 Dose: 1 poppy Carvedilol (Coreg) 25 mg PO BID [facility] Last Admin: 04/08/17 09:25 Dose: 25 mg Clopidogrel Bisulfate (Plavix) 75 mg PO DAILY [facility] Last Admin: 04/08/17 09:18 Dose: 75 mg Dextrose (Dextrose 50% Inj) 0 ml IV STAT PRN; Protocol PRN Reason: Hyglycemia Protocol Last Admin: 03/13/17 07:17 Dose: 25 ml Dextrose (Glutose 15) 0 gm PO ONCE PRN; Protocol PRN Reason: Hypoglycemia Protocol Last Admin: 03/26/17 07:17 Dose: 15 gm Diphenhydramine HCl (Benadryl) 25 mg IVP Q4 PRN PRN Reason: Itching / Pruritus Last Admin: 04/08/17 09:13 Dose: 25 mg Epoetin Alec (Procrit) 10,000 unit IV TTS [facility] Last Admin: 04/06/17 19:48 Dose: 10,000 unit Famotidine (Pepcid) 20 mg PO DAILY [facility] Last Admin: 04/08/17 09:18 Dose: 20 mg Heparin Sodium (Porcine) (Heparin) 5,000 units SC Q12 [facility] Last Admin: 04/08/17 09:19 Dose: 5,000 units Hydromorphone HCl (Dilaudid) 1 mg IVP Q3H PRN PRN Reason: Pain, severe (8-10) Last Admin: 04/08/17 09:13 Dose: 1 mg Linezolid (Zyvox 600mg/300ml D5w) 600 mg in 300 mls @ 200 mls/hr IVPB Q12 [facility] Last Admin: 04/07/17 22:30 Dose: 200 mls/hr Meropenem 500 mg/ Dextrose 100 mls @ 100 mls/hr IVPB Q24H [facility] Last Admin: 04/08/17 09:00 Dose: 100 mls/hr Insulin Glargine (Lantus) 10 unit SC HS [facility] Last Admin: 04/07/17 22:33 Dose: 10 units Insulin Human Regular (Novolin R) 0 unit SC ACHS [facility] PRN Reason: Protocol Last Admin: 04/08/17 08:30 Dose: 2 unit Ondansetron HCl (Zofran Inj) 4 mg IVP Q4 PRN PRN Reason: Nausea/Vomiting Oxycodone/Acetaminophen (Percocet 5/325 Mg Tab) 1 tab PO Q4H PRN PRN Reason: Pain, moderate (4-7) Stop: 04/10/17 10:30 Vitamin B Complex/Vit C/Folic Acid (Nephro-Cony) 1 tab PO 0800 [facility] Last Admin: 04/08/17 09:00 Dose: 1 tab - Labs Labs: 04/07/17 18:28 04/07/17 18:28 PT 11.7 SECONDS (9.7-12.2) 03/13/17 08:31 INR 1.0 03/13/17 08:31 APTT 41 SECONDS (21-34) H 03/13/17 08:31 - Constitutional Appears: No Acute Distress, Chronically Ill - Head Exam Head Exam: ATRAUMATIC, NORMAL INSPECTION - Eye Exam Eye Exam: EOMI, Normal appearance - Neck Exam Neck Exam: Normal Inspection. absent: Tenderness - Respiratory Exam Respiratory Exam: Clear to Ausculation Bilateral, NORMAL BREATHING PATTERN - Cardiovascular Exam Cardiovascular Exam: REGULAR RHYTHM, +S1 - GI/Abdominal Exam GI & Abdominal Exam: Soft. 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
--- NOTE | 2017-04-08 11:43 | CP.PCM.PN ---
Subjective - Date & Time of Evaluation Date of Evaluation: 04/08/17 Time of Evaluation: 07:00 - Subjective Subjective: SURGERY PROGRESS NOTE FOR DR. SANTIAGO Patient seen and examined at bedside in the ICU. She is tolerating her regular/ renal diet. She denies nausea or vomiting. Patient states her pain is controlled with the dilaudid but she wants to try to have less narcotic pain medication. There is liquid stool output into the ileostomy. Knee immobilizer in place. Objective - Vital Signs/Intake and Output Vital Signs (last 24 hours): Temp Pulse Resp BP Pulse Ox 98.2 F 87 18 135/82 98 04/08/17 08:00 04/08/17 08:00 04/08/17 08:00 04/08/17 09:25 04/08/17 08:00 Intake and Output: 04/08/17 04/08/17 06:59 18:59 Intake Total 120 Output Total 240 375 Balance -240 -255 - Medications Medications: Current Medications Acetaminophen (Tylenol 325mg Tab) 650 mg PO Q8H [facility] Last Admin: 04/08/17 09:34 Dose: Not Given Albuterol/Ipratropium (Duoneb 3 Mg/0.5 Mg (3 Ml) Ud) 3 ml INH RQ4 [facility] Last Admin: 04/08/17 08:16 Dose: 3 ml Aspirin (Ecotrin) 81 mg PO DAILY [facility] Last Admin: 04/08/17 09:19 Dose: 81 mg Benzocaine/Menthol (Cepacol Sore Throat) 1 poppy MT QID PRN PRN Reason: Sore Throat Last Admin: 04/05/17 08:29 Dose: 1 poppy Carvedilol (Coreg) 25 mg PO BID [facility] Last Admin: 04/08/17 09:25 Dose: 25 mg Clopidogrel Bisulfate (Plavix) 75 mg PO DAILY [facility] Last Admin: 04/08/17 09:18 Dose: 75 mg Dextrose (Dextrose 50% Inj) 0 ml IV STAT PRN; Protocol PRN Reason: Hyglycemia Protocol Last Admin: 03/13/17 07:17 Dose: 25 ml Dextrose (Glutose 15) 0 gm PO ONCE PRN; Protocol PRN Reason: Hypoglycemia Protocol Last Admin: 03/26/17 07:17 Dose: 15 gm Diphenhydramine HCl (Benadryl) 25 mg IVP Q4 PRN PRN Reason: Itching / Pruritus Last Admin: 04/08/17 09:13 Dose: 25 mg Epoetin Alec (Procrit) 10,000 unit IV TTS [facility] Last Admin: 04/06/17 19:48 Dose: 10,000 unit Famotidine (Pepcid) 20 mg PO DAILY [facility] Last Admin: 04/08/17 09:18 Dose: 20 mg Heparin Sodium (Porcine) (Heparin) 5,000 units SC Q12 [facility] Last Admin: 04/08/17 09:19 Dose: 5,000 units Hydromorphone HCl (Dilaudid) 1 mg IVP Q3H PRN PRN Reason: Pain, severe (8-10) Last Admin: 04/08/17 09:13 Dose: 1 mg Linezolid (Zyvox 600mg/300ml D5w) 600 mg in 300 mls @ 200 mls/hr IVPB Q12 [facility] Last Admin: 04/07/17 22:30 Dose: 200 mls/hr Meropenem 500 mg/ Dextrose 100 mls @ 100 mls/hr IVPB Q24H [facility] Last Admin: 04/08/17 09:00 Dose: 100 mls/hr Insulin Glargine (Lantus) 10 unit SC HS [facility] Last Admin: 04/07/17 22:33 Dose: 10 units Insulin Human Regular (Novolin R) 0 unit SC ACHS [facility] PRN Reason: Protocol Last Admin: 04/08/17 08:30 Dose: 2 unit Ondansetron HCl (Zofran Inj) 4 mg IVP Q4 PRN PRN Reason: Nausea/Vomiting Oxycodone/Acetaminophen (Percocet 5/325 Mg Tab) 1 tab PO Q4H PRN PRN Reason: Pain, moderate (4-7) Stop: 04/10/17 10:30 Vitamin B Complex/Vit C/Folic Acid (Nephro-Cony) 1 tab PO 0800 [facility] Last Admin: 04/08/17 09:00 Dose: 1 tab - Labs Labs: 04/07/17 18:28 04/07/17 18:28 PT 11.7 SECONDS (9.7-12.2) 03/13/17 08:31 INR 1.0 03/13/17 08:31 APTT 41 SECONDS (21-34) H 03/13/17 08:31 - Constitutional Appears: Non-toxic, No Acute Distress, Chronically Ill - Head Exam Head Exam: ATRAUMATIC, NORMAL INSPECTION - Respiratory Exam Respiratory Exam: NORMAL BREATHING PATTERN. absent: Respiratory Distress - Cardiovascular Exam Cardiovascular Exam: +S1, +S2 - GI/Abdominal Exam GI & Abdominal Exam: absent: Distended, Firm, Guarding, Rigid Additional comments: Midline incision with reyes, dressing with small amount drainage - changed Left kala drain in place with 40cc serous drainage over past 24 hours Liquid output into ileostomy bag - Extremities Exam Additional comments: Right BKA stump dressing in place - Neurological Exam Neurological Exam: Alert, Awake - Skin Skin Exam: Dry, Normal Color, Warm Assessment and Plan - Assessment and Plan (Free Text) Assessment: 51yo F with 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 Eduardo Chin PGY-3
[2017-04-08] MEDS: Linezolid 600 mg in D5W 300 ml 600 MG/300 ML BAG IVPB SCH ×2 (15:32→21:53)
[2017-04-08] MEDS: (Lantus) Insulin Glargine, Recombinant SC SCH (21:52)
[2017-04-09] MEDS: Albuterol-Ipratrop 3 mg / 0.5 (3 ml) UD INH SCH ×6 (00:11→19:44)
[2017-04-09] MEDS: HYDROmorphone 1 mg/ml ISec IVP PRN ×4 (06:13→19:17)
[2017-04-09] MEDS: DiphenhydrAMINE 50 mg/ml Inj IVP PRN ×3 (06:14→15:59)
[2017-04-09] MEDS: Meropenem 500 MG in Dextrose 5% In Water 100 ML IVPB SCH (08:00)
[2017-04-09] MEDS: Multivitamin Vitamin B Complex (Nephro-Vite) Tab PO SCH (08:30)
[2017-04-09] MEDS: Linezolid 600 mg in D5W 300 ml 600 MG/300 ML BAG IVPB SCH ×2 (09:00→22:54)
[2017-04-09] MEDS: (Novolin R) Insulin Human Regular 100 units/ml vial SC SCH ×4 (09:31→22:00)
--- NOTE | 2017-04-09 09:59 | CP.PCM.PN ---
Subjective - Date & Time of Evaluation Date of Evaluation: 04/09/17 Time of Evaluation: 07:00 - Subjective Subjective: SURGERY PROGRESS NOTE FOR DR. SANTIAGO Patient seen and examined at bedside in the ICU. She is tolerating her regular/ renal diet. Yesterday, she had requested to decrease her narcotic pain medications. A new pain regimen was discussed with the patient and the patient agreed. We put her on scheduled Tylenol with Dilaudid for breakthrough pain, but she is refusing the scheduled Tylenol and requesting the dilaudid only. Patient refused blood draw for labs yesterday and this morning. Labs will be taken during dialysis today. Objective - Vital Signs/Intake and Output Vital Signs (last 24 hours): Temp Pulse Resp BP Pulse Ox 98.4 F 80 18 140/78 99 04/09/17 08:00 04/09/17 08:00 04/09/17 08:00 04/09/17 09:30 04/09/17 08:00 Intake and Output: 04/09/17 04/09/17 06:59 18:59 Intake Total 500 250 Output Total 40 230 Balance 460 20 - Medications Medications: Current Medications Acetaminophen (Tylenol 325mg Tab) 650 mg PO Q8H [facility] Last Admin: 04/09/17 00:45 Dose: Not Given Albuterol/Ipratropium (Duoneb 3 Mg/0.5 Mg (3 Ml) Ud) 3 ml INH RQ4 [facility] Last Admin: 04/09/17 08:11 Dose: Not Given Aspirin (Ecotrin) 81 mg PO DAILY [facility] Last Admin: 04/09/17 09:30 Dose: 81 mg Benzocaine/Menthol (Cepacol Sore Throat) 1 poppy MT QID PRN PRN Reason: Sore Throat Last Admin: 04/05/17 08:29 Dose: 1 poppy Carvedilol (Coreg) 25 mg PO BID [facility] Last Admin: 04/09/17 09:30 Dose: 25 mg Clopidogrel Bisulfate (Plavix) 75 mg PO DAILY [facility] Last Admin: 04/09/17 09:30 Dose: 75 mg Dextrose (Dextrose 50% Inj) 0 ml IV STAT PRN; Protocol PRN Reason: Hyglycemia Protocol Last Admin: 03/13/17 07:17 Dose: 25 ml Dextrose (Glutose 15) 0 gm PO ONCE PRN; Protocol PRN Reason: Hypoglycemia Protocol Last Admin: 03/26/17 07:17 Dose: 15 gm Diphenhydramine HCl (Benadryl) 25 mg IVP Q4 PRN PRN Reason: Itching / Pruritus Last Admin: 04/09/17 06:14 Dose: 25 mg Epoetin Alec (Procrit) 10,000 unit IV TTS [facility] Last Admin: 04/06/17 19:48 Dose: 10,000 unit Famotidine (Pepcid) 20 mg PO DAILY [facility] Last Admin: 04/09/17 09:30 Dose: 20 mg Hydromorphone HCl (Dilaudid) 0.5 mg IVP Q3H PRN PRN Reason: Pain, severe (8-10) Last Admin: 04/09/17 06:13 Dose: 0.5 mg Linezolid (Zyvox 600mg/300ml D5w) 600 mg in 300 mls @ 200 mls/hr IVPB Q12 [facility] Last Admin: 04/08/17 21:53 Dose: 200 mls/hr Meropenem 500 mg/ Dextrose 100 mls @ 100 mls/hr IVPB Q24H [facility] Last Admin: 04/09/17 08:00 Dose: 100 mls/hr Insulin Glargine (Lantus) 10 unit SC HS [facility] Last Admin: 04/08/17 21:52 Dose: 10 units Insulin Human Regular (Novolin R) 0 unit SC ACHS [facility] PRN Reason: Protocol Last Admin: 04/09/17 09:31 Dose: Not Given Ondansetron HCl (Zofran Inj) 4 mg IVP Q4 PRN PRN Reason: Nausea/Vomiting Oxycodone/Acetaminophen (Percocet 5/325 Mg Tab) 1 tab PO Q4H PRN PRN Reason: Pain, moderate (4-7) Stop: 04/10/17 10:30 Vitamin B Complex/Vit C/Folic Acid (Nephro-Cony) 1 tab PO 0800 [facility] Last Admin: 04/09/17 08:30 Dose: 1 tab - Labs Labs: 04/07/17 18:28 04/07/17 18:28 PT 11.7 SECONDS (9.7-12.2) 03/13/17 08:31 INR 1.0 03/13/17 08:31 APTT 41 SECONDS (21-34) H 03/13/17 08:31 - Constitutional Appears: Non-toxic, No Acute Distress, Chronically Ill - Respiratory Exam Respiratory Exam: NORMAL BREATHING PATTERN. 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 Eduardo Chin PGY-3
[2017-04-09 10:45] LABS: BASO % 0.3 % (0.0-2.0); EOS # 0.2 K/uL (0.0-0.7); EOS % 2.3 % (0.0-4.0); HEMATOCRIT 24.2 % (34.0-47.0); LYMPH # 1.3 K/uL (1.0-4.3); LYMPH % 13.4 % (20.0-40.0); MEAN CELL VOLUME 91.8 fL (81.0-99.0); MEAN CORPUSCULAR HEMOGLOBIN 30.1 pg (27.0-31.0); MEAN CORPUSCULAR HGB CONC 32.8 g/dL (33.0-37.0); MEAN PLATELET VOLUME 7.5 fL (7.2-11.7); MONO # 0.6 K/uL (0.0-0.8); MONO % 6.3 % (0.0-10.0); NRBC % 0.1 % (0.0-2.0); RED CELL DISTRIBUTION WIDTH 15.8 % (11.5-14.5); WHITE BLOOD COUNT 9.5 K/uL (4.8-10.8)
--- NOTE | 2017-04-09 11:04 | CP.PCM.PN ---
Subjective - Date & Time of Evaluation Date of Evaluation: 04/09/17 Time of Evaluation: 11:02 - Subjective Subjective: seen and examined sleeping comfortably, undergoing hd estimated uf 2L no events pt asking for dilaudid frequently per RN Objective - Vital Signs/Intake and Output Vital Signs (last 24 hours): Temp Pulse Resp BP Pulse Ox 98.4 F 80 18 140/78 99 04/09/17 08:00 04/09/17 08:00 04/09/17 08:00 04/09/17 09:30 04/09/17 08:00 Intake and Output: 04/09/17 04/09/17 06:59 18:59 Intake Total 500 250 Output Total 40 230 Balance 460 20 - Medications Medications: Current Medications Acetaminophen (Tylenol 325mg Tab) 650 mg PO Q8H [facility] Last Admin: 04/09/17 09:59 Dose: Not Given Albuterol/Ipratropium (Duoneb 3 Mg/0.5 Mg (3 Ml) Ud) 3 ml INH RQ4 [facility] Last Admin: 04/09/17 08:11 Dose: Not Given Aspirin (Ecotrin) 81 mg PO DAILY [facility] Last Admin: 04/09/17 09:30 Dose: 81 mg Benzocaine/Menthol (Cepacol Sore Throat) 1 poppy MT QID PRN PRN Reason: Sore Throat Last Admin: 04/05/17 08:29 Dose: 1 poppy Carvedilol (Coreg) 25 mg PO BID [facility] Last Admin: 04/09/17 09:30 Dose: 25 mg Clopidogrel Bisulfate (Plavix) 75 mg PO DAILY [facility] Last Admin: 04/09/17 09:30 Dose: 75 mg Dextrose (Dextrose 50% Inj) 0 ml IV STAT PRN; Protocol PRN Reason: Hyglycemia Protocol Last Admin: 03/13/17 07:17 Dose: 25 ml Dextrose (Glutose 15) 0 gm PO ONCE PRN; Protocol PRN Reason: Hypoglycemia Protocol Last Admin: 03/26/17 07:17 Dose: 15 gm Diphenhydramine HCl (Benadryl) 25 mg IVP Q4 PRN PRN Reason: Itching / Pruritus Last Admin: 04/09/17 06:14 Dose: 25 mg Epoetin Alec (Procrit) 10,000 unit IV TTS [facility] Last Admin: 04/06/17 19:48 Dose: 10,000 unit Famotidine (Pepcid) 20 mg PO DAILY [facility] Last Admin: 04/09/17 09:30 Dose: 20 mg Hydromorphone HCl (Dilaudid) 0.5 mg IVP Q3H PRN PRN Reason: Pain, severe (8-10) Last Admin: 04/09/17 06:13 Dose: 0.5 mg Linezolid (Zyvox 600mg/300ml D5w) 600 mg in 300 mls @ 200 mls/hr IVPB Q12 [facility] Last Admin: 04/09/17 09:00 Dose: 200 mls/hr Meropenem 500 mg/ Dextrose 100 mls @ 100 mls/hr IVPB Q24H [facility] Last Admin: 04/09/17 08:00 Dose: 100 mls/hr Insulin Glargine (Lantus) 10 unit SC HS [facility] Last Admin: 04/08/17 21:52 Dose: 10 units Insulin Human Regular (Novolin R) 0 unit SC ACHS [facility] PRN Reason: Protocol Last Admin: 04/09/17 09:31 Dose: Not Given Ondansetron HCl (Zofran Inj) 4 mg IVP Q4 PRN PRN Reason: Nausea/Vomiting Oxycodone/Acetaminophen (Percocet 5/325 Mg Tab) 1 tab PO Q4H PRN PRN Reason: Pain, moderate (4-7) Stop: 04/10/17 10:30 Vitamin B Complex/Vit C/Folic Acid (Nephro-Cony) 1 tab PO 0800 [facility] Last Admin: 04/09/17 08:30 Dose: 1 tab - Labs Labs: 04/09/17 10:29 04/07/17 18:28 PT 11.7 SECONDS (9.7-12.2) 03/13/17 08:31 INR 1.0 03/13/17 08:31 APTT 41 SECONDS (21-34) H 03/13/17 08:31 - Constitutional Appears: Non-toxic, No Acute Distress, Chronically Ill - Head Exam Head Exam: NORMAL INSPECTION - Eye Exam Eye Exam: Normal appearance - ENT Exam ENT Exam: Mucous Membranes Moist, Normal Exam - Neck Exam Neck Exam: Normal Inspection - Respiratory Exam Respiratory Exam: Decreased Breath Sounds, NORMAL BREATHING PATTERN - Cardiovascular Exam Cardiovascular Exam: REGULAR RHYTHM, RRR - GI/Abdominal Exam GI & Abdominal Exam: Distended, Soft - Extremities Exam Additional comments: lt bka - Skin Skin Exam: Normal Color, Warm Assessment and Plan (1) Gangrene of right foot Status: Acute (2) Anemia Status: Acute (3) Diabetes mellitus Status: Acute (4) ESRD on peritoneal dialysis Status: Acute (5) Hyperkalemia Status: Acute (6) Hypertension Status: Acute - Assessment and Plan (Free Text) Assessment: maintain HD TTS antibiotics / wound care rehab
[2017-04-09 11:10] LABS: POTASSIUM 4.1 mmol/L (3.6-5.2)
[2017-04-09 11:12] LABS: ALB/GLOB RATIO 0.9 (1.0-2.1); BILIRUBIN,TOTAL 0.7 mg/dL (0.2-1.3); TOTAL PROTEIN 5.4 g/dL (6.3-8.3)
[2017-04-09 11:13] LABS: MAGNESIUM 1.7 mg/dL (1.6-2.3)
[2017-04-09] MEDS: EPOETIN ALFA 10,000 UNIT/ML ML IV SCH (14:01)
--- NOTE | 2017-04-09 18:52 | CP.PCM.PN ---
Subjective - Date & Time of Evaluation Date of Evaluation: 04/09/17 Time of Evaluation: 18:51 - Subjective Subjective: pt is c/o pain doing ok no nausea poor intake continue current treatment Objective - Vital Signs/Intake and Output Vital Signs (last 24 hours): Temp Pulse Resp BP Pulse Ox 98.4 F 80 18 135/57 L 100 04/09/17 16:00 04/09/17 16:00 04/09/17 16:00 04/09/17 17:40 04/09/17 16:00 Intake and Output: 04/09/17 04/09/17 06:59 18:59 Intake Total 500 250 Output Total 40 230 Balance 460 20 - Medications Medications: Current Medications Acetaminophen (Tylenol 325mg Tab) 650 mg PO Q8H [facility] Last Admin: 04/09/17 17:33 Dose: Not Given Albuterol/Ipratropium (Duoneb 3 Mg/0.5 Mg (3 Ml) Ud) 3 ml INH RQ4 [facility] Last Admin: 04/09/17 17:31 Dose: Not Given Aspirin (Ecotrin) 81 mg PO DAILY [facility] Last Admin: 04/09/17 09:30 Dose: 81 mg Benzocaine/Menthol (Cepacol Sore Throat) 1 poppy MT QID PRN PRN Reason: Sore Throat Last Admin: 04/05/17 08:29 Dose: 1 poppy Carvedilol (Coreg) 25 mg PO BID [facility] Last Admin: 04/09/17 17:40 Dose: 25 mg Clopidogrel Bisulfate (Plavix) 75 mg PO DAILY [facility] Last Admin: 04/09/17 09:30 Dose: 75 mg Dextrose (Dextrose 50% Inj) 0 ml IV STAT PRN; Protocol PRN Reason: Hyglycemia Protocol Last Admin: 03/13/17 07:17 Dose: 25 ml Dextrose (Glutose 15) 0 gm PO ONCE PRN; Protocol PRN Reason: Hypoglycemia Protocol Last Admin: 03/26/17 07:17 Dose: 15 gm Diphenhydramine HCl (Benadryl) 25 mg IVP Q4 PRN PRN Reason: Itching / Pruritus Last Admin: 04/09/17 15:59 Dose: 25 mg Epoetin Alec (Procrit) 10,000 unit IV TuThSa [facility] Last Admin: 04/09/17 14:01 Dose: 10,000 unit Famotidine (Pepcid) 20 mg PO DAILY [facility] Last Admin: 04/09/17 09:30 Dose: 20 mg Hydromorphone HCl (Dilaudid) 0.5 mg IVP Q3H PRN PRN Reason: Pain, severe (8-10) Last Admin: 04/09/17 16:01 Dose: 0.5 mg Linezolid (Zyvox 600mg/300ml D5w) 600 mg in 300 mls @ 200 mls/hr IVPB Q12 [facility] Last Admin: 04/09/17 09:00 Dose: 200 mls/hr Meropenem 500 mg/ Dextrose 100 mls @ 100 mls/hr IVPB Q24H [facility] Last Admin: 04/09/17 08:00 Dose: 100 mls/hr Insulin Glargine (Lantus) 10 unit SC HS [facility] Last Admin: 04/08/17 21:52 Dose: 10 units Insulin Human Regular (Novolin R) 0 unit SC ACHS [facility] PRN Reason: Protocol Last Admin: 04/09/17 17:32 Dose: Not Given Ondansetron HCl (Zofran Inj) 4 mg IVP Q4 PRN PRN Reason: Nausea/Vomiting Oxycodone/Acetaminophen (Percocet 5/325 Mg Tab) 1 tab PO Q4H PRN PRN Reason: Pain, moderate (4-7) Stop: 04/10/17 10:30 Vitamin B Complex/Vit C/Folic Acid (Nephro-Cony) 1 tab PO 0800 [facility] Last Admin: 04/09/17 08:30 Dose: 1 tab - Labs Labs: 04/09/17 10:29 04/09/17 10:29 PT 11.7 SECONDS (9.7-12.2) 03/13/17 08:31 INR 1.0 03/13/17 08:31 APTT 41 SECONDS (21-34) H 03/13/17 08:31
[2017-04-09] MEDS: (Lantus) Insulin Glargine, Recombinant SC SCH (22:00)
--- NOTE | 2017-04-09 22:39 | CP.PCM.PCO ---
Physician Communication Note - Physician Communication Note Physician Communication Note: Patient with Acute Delirium. Haldol given IM
[2017-04-10] MEDS: DiphenhydrAMINE 50 mg/ml Inj IVP PRN ×5 (00:35→20:33)
[2017-04-10] MEDS: HYDROmorphone 1 mg/ml ISec IVP PRN ×5 (00:35→20:33)
[2017-04-10] MEDS: Benzocaine/Menthol (Cepacol) Lozenge MT PRN (00:43)
[2017-04-10] MEDS: Albuterol-Ipratrop 3 mg / 0.5 (3 ml) UD INH SCH ×6 (04:00→20:27)
[2017-04-10] MEDS: (Novolin R) Insulin Human Regular 100 units/ml vial SC SCH ×4 (08:29→22:00)
[2017-04-10] MEDS: Multivitamin Vitamin B Complex (Nephro-Vite) Tab PO SCH (08:35)
[2017-04-10] MEDS: Meropenem 500 MG in Dextrose 5% In Water 100 ML IVPB SCH (09:00)
[2017-04-10] MEDS: Linezolid 600 mg in D5W 300 ml 600 MG/300 ML BAG IVPB SCH ×2 (10:00→21:10)
--- NOTE | 2017-04-10 16:10 | CP.PCM.PN ---
Subjective - Date & Time of Evaluation Date of Evaluation: 04/10/17 Time of Evaluation: 16:07 - Subjective Subjective: no acute events tolerating HD noted low Na, for repeat, pt notes not drinking excessively, but getting AB IV several water bottles at bedside poor historian at present due to lethargy unable to obtain ROS Objective - Vital Signs/Intake and Output Vital Signs (last 24 hours): Temp Pulse Resp BP Pulse Ox 98.4 F 90 18 135/64 100 04/10/17 12:00 04/10/17 12:00 04/10/17 12:00 04/10/17 12:00 04/10/17 12:00 Intake and Output: 04/10/17 04/10/17 06:59 18:59 Intake Total 250 250 Output Total 0 420 Balance 250 -170 - Medications Medications: Current Medications Acetaminophen (Tylenol 325mg Tab) 650 mg PO Q8H [facility] Last Admin: 04/10/17 11:18 Dose: Not Given Albuterol/Ipratropium (Duoneb 3 Mg/0.5 Mg (3 Ml) Ud) 3 ml INH RQ4 [facility] Last Admin: 04/10/17 13:17 Dose: Not Given Aspirin (Ecotrin) 81 mg PO DAILY [facility] Last Admin: 04/10/17 11:15 Dose: 81 mg Benzocaine/Menthol (Cepacol Sore Throat) 1 poppy MT QID PRN PRN Reason: Sore Throat Last Admin: 04/10/17 00:43 Dose: 1 poppy Carvedilol (Coreg) 25 mg PO BID [facility] Last Admin: 04/10/17 11:15 Dose: 25 mg Clopidogrel Bisulfate (Plavix) 75 mg PO DAILY [facility] Last Admin: 04/10/17 11:16 Dose: 75 mg Dextrose (Dextrose 50% Inj) 0 ml IV STAT PRN; Protocol PRN Reason: Hyglycemia Protocol Last Admin: 03/13/17 07:17 Dose: 25 ml Dextrose (Glutose 15) 0 gm PO ONCE PRN; Protocol PRN Reason: Hypoglycemia Protocol Last Admin: 03/26/17 07:17 Dose: 15 gm Diphenhydramine HCl (Benadryl) 25 mg IVP Q4 PRN PRN Reason: Itching / Pruritus Last Admin: 04/10/17 11:24 Dose: 25 mg Epoetin Alec (Procrit) 10,000 unit IV TuThSa [facility] Last Admin: 04/09/17 14:01 Dose: 10,000 unit Famotidine (Pepcid) 20 mg PO DAILY [facility] Last Admin: 04/10/17 11:15 Dose: 20 mg Hydromorphone HCl (Dilaudid) 0.5 mg IVP Q3H PRN PRN Reason: Pain, severe (8-10) Last Admin: 04/10/17 11:23 Dose: 0.5 mg Linezolid (Zyvox 600mg/300ml D5w) 600 mg in 300 mls @ 200 mls/hr IVPB Q12 [facility] Last Admin: 04/10/17 10:00 Dose: 200 mls/hr Meropenem 500 mg/ Dextrose 100 mls @ 100 mls/hr IVPB Q24H [facility] Last Admin: 04/10/17 09:00 Dose: 100 mls/hr Insulin Glargine (Lantus) 10 unit SC HS [facility] Last Admin: 04/09/17 22:00 Dose: Not Given Insulin Human Regular (Novolin R) 0 unit SC ACHS [facility] PRN Reason: Protocol Last Admin: 04/10/17 11:21 Dose: Not Given Ondansetron HCl (Zofran Inj) 4 mg IVP Q4 PRN PRN Reason: Nausea/Vomiting Vitamin B Complex/Vit C/Folic Acid (Nephro-Cony) 1 tab PO 0800 [facility] Last Admin: 04/10/17 08:35 Dose: 1 tab - Labs Labs: 04/09/17 10:29 04/10/17 15:12 PT 11.7 SECONDS (9.7-12.2) 03/13/17 08:31 INR 1.0 03/13/17 08:31 APTT 41 SECONDS (21-34) H 03/13/17 08:31 - Constitutional Appears: Confused, Chronically Ill - ENT Exam ENT Exam: Mucous Membranes Moist - Neck Exam Neck Exam: Full ROM. absent: Lymphadenopathy - Respiratory Exam Respiratory Exam: Decreased Breath Sounds. absent: Accessory Muscle Use - Cardiovascular Exam Cardiovascular Exam: REGULAR RHYTHM. absent: Rubs - GI/Abdominal Exam GI & Abdominal Exam: Distended. absent: Tenderness - Extremities Exam Extremities Exam: Pedal Edema Additional comments: right BKA - Neurological Exam Neurological Exam: Awake. absent: Oriented x3 Assessment and Plan - Assessment and Plan (Free Text) Assessment: esrd, on HD due to colostomy ( formerly on PD) some delirium, being seen by Psych low Na, for repeat reviewed fluid restriction with nursing pvd, podiatry follow up
--- NOTE | 2017-04-10 16:25 | CP.PCM.PN ---
Subjective - Date & Time of Evaluation Date of Evaluation: 04/10/17 Time of Evaluation: 06:00 - Subjective Subjective: still in ICU afeb Objective - Vital Signs/Intake and Output Vital Signs (last 24 hours): Temp Pulse Resp BP Pulse Ox 98.4 F 90 18 135/64 100 04/10/17 12:00 04/10/17 12:00 04/10/17 12:00 04/10/17 12:00 04/10/17 12:00 Intake and Output: 04/10/17 04/10/17 06:59 18:59 Intake Total 250 250 Output Total 0 420 Balance 250 -170 - Medications Medications: Current Medications Acetaminophen (Tylenol 325mg Tab) 650 mg PO Q8H [facility] Last Admin: 04/10/17 11:18 Dose: Not Given Albuterol/Ipratropium (Duoneb 3 Mg/0.5 Mg (3 Ml) Ud) 3 ml INH RQ4 [facility] Last Admin: 04/10/17 13:17 Dose: Not Given Aspirin (Ecotrin) 81 mg PO DAILY [facility] Last Admin: 04/10/17 11:15 Dose: 81 mg Benzocaine/Menthol (Cepacol Sore Throat) 1 poppy MT QID PRN PRN Reason: Sore Throat Last Admin: 04/10/17 00:43 Dose: 1 poppy Carvedilol (Coreg) 25 mg PO BID [facility] Last Admin: 04/10/17 11:15 Dose: 25 mg Clopidogrel Bisulfate (Plavix) 75 mg PO DAILY [facility] Last Admin: 04/10/17 11:16 Dose: 75 mg Dextrose (Dextrose 50% Inj) 0 ml IV STAT PRN; Protocol PRN Reason: Hyglycemia Protocol Last Admin: 03/13/17 07:17 Dose: 25 ml Dextrose (Glutose 15) 0 gm PO ONCE PRN; Protocol PRN Reason: Hypoglycemia Protocol Last Admin: 03/26/17 07:17 Dose: 15 gm Diphenhydramine HCl (Benadryl) 25 mg IVP Q4 PRN PRN Reason: Itching / Pruritus Last Admin: 04/10/17 11:24 Dose: 25 mg Epoetin Alec (Procrit) 10,000 unit IV TuThSa [facility] Last Admin: 04/09/17 14:01 Dose: 10,000 unit Famotidine (Pepcid) 20 mg PO DAILY [facility] Last Admin: 04/10/17 11:15 Dose: 20 mg Hydromorphone HCl (Dilaudid) 0.5 mg IVP Q3H PRN PRN Reason: Pain, severe (8-10) Last Admin: 04/10/17 11:23 Dose: 0.5 mg Linezolid (Zyvox 600mg/300ml D5w) 600 mg in 300 mls @ 200 mls/hr IVPB Q12 [facility] Last Admin: 04/10/17 10:00 Dose: 200 mls/hr Meropenem 500 mg/ Dextrose 100 mls @ 100 mls/hr IVPB Q24H [facility] Last Admin: 04/10/17 09:00 Dose: 100 mls/hr Insulin Glargine (Lantus) 10 unit SC HS [facility] Last Admin: 04/09/17 22:00 Dose: Not Given Insulin Human Regular (Novolin R) 0 unit SC ACHS [facility] PRN Reason: Protocol Last Admin: 04/10/17 11:21 Dose: Not Given Ondansetron HCl (Zofran Inj) 4 mg IVP Q4 PRN PRN Reason: Nausea/Vomiting Vitamin B Complex/Vit C/Folic Acid (Nephro-Cony) 1 tab PO 0800 [facility] Last Admin: 04/10/17 08:35 Dose: 1 tab - Labs Labs: 04/09/17 10:29 04/10/17 15:12 PT 11.7 SECONDS (9.7-12.2) 03/13/17 08:31 INR 1.0 03/13/17 08:31 APTT 41 SECONDS (21-34) H 03/13/17 08:31 - Constitutional Appears: Non-toxic, Chronically Ill - Head Exam Head Exam: NORMOCEPHALIC - Eye Exam Eye Exam: PERRL - ENT Exam ENT Exam: Mucous Membranes Dry - Neck Exam Neck Exam: absent: Lymphadenopathy - Respiratory Exam Respiratory Exam: Decreased Breath Sounds - Cardiovascular Exam Cardiovascular Exam: REGULAR RHYTHM - GI/Abdominal Exam GI & Abdominal Exam: Distended, Soft - Rectal Exam Rectal Exam: Deferred - Exam Exam: NORMAL INSPECTION Assessment and Plan (1) Gangrene of right foot Status: Acute (2) Chronic anemia Status: Acute (3) Chronic congestive heart failure Status: Acute (4) Diabetes mellitus Status: Acute (5) ESRD on peritoneal dialysis Status: Acute - Assessment and Plan (Free Text) Assessment: consider d/c antibiotics
--- NOTE | 2017-04-10 20:53 | CP.PCM.PN ---
Subjective - Date & Time of Evaluation Date of Evaluation: 04/10/17 Time of Evaluation: 20:47 - Subjective Subjective: pt had episode of delirium last night no fever no chest pain was out of bed today c/o pain now doing well for rehab placement Objective - Vital Signs/Intake and Output Vital Signs (last 24 hours): Temp Pulse Resp BP Pulse Ox 98.2 F 87 18 137/54 L 100 04/10/17 16:00 04/10/17 16:00 04/10/17 16:00 04/10/17 18:19 04/10/17 16:00 Intake and Output: 04/10/17 04/11/17 18:59 06:59 Intake Total 1050 Output Total 740 Balance 310 - Medications Medications: Current Medications Acetaminophen (Tylenol 325mg Tab) 650 mg PO Q8H [facility] Last Admin: 04/10/17 18:13 Dose: Not Given Albuterol/Ipratropium (Duoneb 3 Mg/0.5 Mg (3 Ml) Ud) 3 ml INH RQ4 [facility] Last Admin: 04/10/17 20:27 Dose: Not Given Aspirin (Ecotrin) 81 mg PO DAILY [facility] Last Admin: 04/10/17 11:15 Dose: 81 mg Benzocaine/Menthol (Cepacol Sore Throat) 1 poppy MT QID PRN PRN Reason: Sore Throat Last Admin: 04/10/17 00:43 Dose: 1 poppy Carvedilol (Coreg) 25 mg PO BID [facility] Last Admin: 04/10/17 18:19 Dose: 25 mg Clopidogrel Bisulfate (Plavix) 75 mg PO DAILY [facility] Last Admin: 04/10/17 11:16 Dose: 75 mg Diphenhydramine HCl (Benadryl) 25 mg IVP Q4 PRN PRN Reason: Itching / Pruritus Last Admin: 04/10/17 20:33 Dose: 25 mg Epoetin Alec (Procrit) 10,000 unit IV TuThSa [facility] Last Admin: 04/09/17 14:01 Dose: 10,000 unit Famotidine (Pepcid) 20 mg PO DAILY [facility] Last Admin: 04/10/17 11:15 Dose: 20 mg Hydromorphone HCl (Dilaudid) 0.5 mg IVP Q3H PRN PRN Reason: Pain, severe (8-10) Last Admin: 04/10/17 20:33 Dose: 0.5 mg Linezolid (Zyvox 600mg/300ml D5w) 600 mg in 300 mls @ 200 mls/hr IVPB Q12 [facility] Last Admin: 04/10/17 10:00 Dose: 200 mls/hr Meropenem 500 mg/ Dextrose 100 mls @ 100 mls/hr IVPB Q24H [facility] Last Admin: 04/10/17 09:00 Dose: 100 mls/hr Insulin Glargine (Lantus) 10 unit SC HS [facility] Last Admin: 04/09/17 22:00 Dose: Not Given Insulin Human Regular (Novolin R) 0 unit SC ACHS [facility] PRN Reason: Protocol Last Admin: 04/10/17 18:21 Dose: Not Given Ondansetron HCl (Zofran Inj) 4 mg IVP Q4 PRN PRN Reason: Nausea/Vomiting Vitamin B Complex/Vit C/Folic Acid (Nephro-Cony) 1 tab PO 0800 [facility] Last Admin: 04/10/17 08:35 Dose: 1 tab - Labs Labs: 04/09/17 10:29 04/10/17 15:12 PT 11.7 SECONDS (9.7-12.2) 03/13/17 08:31 INR 1.0 03/13/17 08:31 APTT 41 SECONDS (21-34) H 03/13/17 08:31
[2017-04-10] MEDS: (Lantus) Insulin Glargine, Recombinant SC SCH (22:00)
[2017-04-11] MEDS: Albuterol-Ipratrop 3 mg / 0.5 (3 ml) UD INH SCH ×6 (00:16→20:09)
[2017-04-11] MEDS: HYDROmorphone 1 mg/ml ISec IVP PRN ×5 (02:54→21:38)
[2017-04-11] MEDS: DiphenhydrAMINE 50 mg/ml Inj IVP PRN ×4 (02:55→21:38)
[2017-04-11] MEDS: (Novolin R) Insulin Human Regular 100 units/ml vial SC SCH ×4 (07:55→21:20)
[2017-04-11] MEDS: Multivitamin Vitamin B Complex (Nephro-Vite) Tab PO SCH (07:58)
--- NOTE | 2017-04-11 08:38 | CP.PCM.PN ---
Subjective - Date & Time of Evaluation Date of Evaluation: 04/11/17 Time of Evaluation: 08:36 - Subjective Subjective: Surgery: Dr. Clark Pt seen and examined. She states that she has mild abd pain. No F/C. Objective - Vital Signs/Intake and Output Vital Signs (last 24 hours): Temp Pulse Resp BP Pulse Ox 97.9 F 84 16 132/67 100 04/11/17 00:00 04/11/17 00:00 04/11/17 00:00 04/11/17 00:00 04/11/17 00:00 Intake and Output: 04/11/17 04/11/17 06:59 18:59 Output Total 20 Balance -20 - Medications Medications: Current Medications Acetaminophen (Tylenol 325mg Tab) 650 mg PO Q8H [facility] Last Admin: 04/11/17 00:45 Dose: Not Given Albuterol/Ipratropium (Duoneb 3 Mg/0.5 Mg (3 Ml) Ud) 3 ml INH RQ4 [facility] Last Admin: 04/11/17 08:03 Dose: Not Given Aspirin (Ecotrin) 81 mg PO DAILY [facility] Last Admin: 04/10/17 11:15 Dose: 81 mg Benzocaine/Menthol (Cepacol Sore Throat) 1 poppy MT QID PRN PRN Reason: Sore Throat Last Admin: 04/10/17 00:43 Dose: 1 poppy Carvedilol (Coreg) 25 mg PO BID [facility] Last Admin: 04/10/17 18:19 Dose: 25 mg Clopidogrel Bisulfate (Plavix) 75 mg PO DAILY [facility] Last Admin: 04/10/17 11:16 Dose: 75 mg Diphenhydramine HCl (Benadryl) 25 mg IVP Q4 PRN PRN Reason: Itching / Pruritus Last Admin: 04/11/17 08:02 Dose: 25 mg Epoetin Alec (Procrit) 10,000 unit IV TuThSa [facility] Last Admin: 04/09/17 14:01 Dose: 10,000 unit Famotidine (Pepcid) 20 mg PO DAILY [facility] Last Admin: 04/10/17 11:15 Dose: 20 mg Hydromorphone HCl (Dilaudid) 0.5 mg IVP Q3H PRN PRN Reason: Pain, severe (8-10) Last Admin: 04/11/17 07:55 Dose: 0.5 mg Linezolid (Zyvox 600mg/300ml D5w) 600 mg in 300 mls @ 200 mls/hr IVPB Q12 [facility] Last Admin: 04/10/17 21:10 Dose: 200 mls/hr Meropenem 500 mg/ Dextrose 100 mls @ 100 mls/hr IVPB Q24H [facility] Last Admin: 04/10/17 09:00 Dose: 100 mls/hr Insulin Glargine (Lantus) 10 unit SC HS [facility] Last Admin: 04/10/17 22:00 Dose: Not Given Insulin Human Regular (Novolin R) 0 unit SC ACHS [facility] PRN Reason: Protocol Last Admin: 04/11/17 07:55 Dose: Not Given Ondansetron HCl (Zofran Inj) 4 mg IVP Q4 PRN PRN Reason: Nausea/Vomiting Vitamin B Complex/Vit C/Folic Acid (Nephro-Cony) 1 tab PO 0800 [facility] Last Admin: 04/11/17 07:58 Dose: 1 tab - Labs Labs: 04/09/17 10:29 04/10/17 15:12 PT 11.7 SECONDS (9.7-12.2) 03/13/17 08:31 INR 1.0 03/13/17 08:31 APTT 41 SECONDS (21-34) H 03/13/17 08:31 - Constitutional Appears: Non-toxic, No Acute Distress, Chronically Ill - Head Exam Head Exam: ATRAUMATIC, NORMOCEPHALIC - Eye Exam Eye Exam: EOMI - ENT Exam ENT Exam: Mucous Membranes Moist - Neck Exam Neck Exam: Full ROM - Respiratory Exam Respiratory Exam: NORMAL BREATHING PATTERN. absent: Accessory Muscle Use, Respiratory Distress - GI/Abdominal Exam Additional comments: midline incision w. reyes, proximal portion of incision is draining pus, foul smelling, no overlying erythema/cellulitis, no necrotic tissue - Extremities Exam Additional comments: R BKA, dressing C/D/I - Neurological Exam Neurological Exam: Alert, Awake, Oriented x3 - Psychiatric Exam Psychiatric exam: Normal Affect, Normal Mood - Skin Skin Exam: Dry, Normal Color, Warm Assessment and Plan - Assessment and Plan (Free Text) Assessment: 51F s/p Exploratory laparotomy, Subtotal colectomy with ileostomy formation secondary to fecal retention POD#15 & chronic RLE PVD, s/p Right BKA POD#7 -Abd incision is draining pus, will pack incision daily, change dressing PRN -c/w abx per ID -Encourage OOB and ambulation -d/w attending Oleg PGY3
--- NOTE | 2017-04-11 09:02 | CP.PCM.PN ---
Subjective - Date & Time of Evaluation Date of Evaluation: 04/11/17 Time of Evaluation: 08:59 - Subjective Subjective: Has been lethargic from pain meds HTN generally better Hg low- 7.9 TSAT was 15% with high ferritin Na low- advised to avoid ice chips No other new events Wounds healing as per surgery Objective - Vital Signs/Intake and Output Vital Signs (last 24 hours): Temp Pulse Resp BP Pulse Ox 97.9 F 84 16 132/67 100 04/11/17 00:00 04/11/17 00:00 04/11/17 00:00 04/11/17 00:00 04/11/17 00:00 Intake and Output: 04/11/17 04/11/17 06:59 18:59 Output Total 20 Balance -20 - Medications Medications: Current Medications Acetaminophen (Tylenol 325mg Tab) 650 mg PO Q8H [facility] Last Admin: 04/11/17 00:45 Dose: Not Given Albuterol/Ipratropium (Duoneb 3 Mg/0.5 Mg (3 Ml) Ud) 3 ml INH RQ4 [facility] Last Admin: 04/11/17 08:03 Dose: Not Given Aspirin (Ecotrin) 81 mg PO DAILY [facility] Last Admin: 04/10/17 11:15 Dose: 81 mg Benzocaine/Menthol (Cepacol Sore Throat) 1 poppy MT QID PRN PRN Reason: Sore Throat Last Admin: 04/10/17 00:43 Dose: 1 poppy Carvedilol (Coreg) 25 mg PO BID [facility] Last Admin: 04/10/17 18:19 Dose: 25 mg Clopidogrel Bisulfate (Plavix) 75 mg PO DAILY [facility] Last Admin: 04/10/17 11:16 Dose: 75 mg Diphenhydramine HCl (Benadryl) 25 mg IVP Q4 PRN PRN Reason: Itching / Pruritus Last Admin: 04/11/17 08:02 Dose: 25 mg Epoetin Alec (Procrit) 10,000 unit IV TuThSa [facility] Last Admin: 04/09/17 14:01 Dose: 10,000 unit Famotidine (Pepcid) 20 mg PO DAILY [facility] Last Admin: 04/10/17 11:15 Dose: 20 mg Hydromorphone HCl (Dilaudid) 0.5 mg IVP Q3H PRN PRN Reason: Pain, severe (8-10) Last Admin: 04/11/17 07:55 Dose: 0.5 mg Linezolid (Zyvox 600mg/300ml D5w) 600 mg in 300 mls @ 200 mls/hr IVPB Q12 [facility] Last Admin: 04/10/17 21:10 Dose: 200 mls/hr Meropenem 500 mg/ Dextrose 100 mls @ 100 mls/hr IVPB Q24H [facility] Last Admin: 04/10/17 09:00 Dose: 100 mls/hr Insulin Glargine (Lantus) 10 unit SC HS [facility] Last Admin: 04/10/17 22:00 Dose: Not Given Insulin Human Regular (Novolin R) 0 unit SC ACHS [facility] PRN Reason: Protocol Last Admin: 04/11/17 07:55 Dose: Not Given Ondansetron HCl (Zofran Inj) 4 mg IVP Q4 PRN PRN Reason: Nausea/Vomiting Vitamin B Complex/Vit C/Folic Acid (Nephro-Cony) 1 tab PO 0800 [facility] Last Admin: 04/11/17 07:58 Dose: 1 tab - Labs Labs: 04/09/17 10:29 04/10/17 15:12 PT 11.7 SECONDS (9.7-12.2) 03/13/17 08:31 INR 1.0 03/13/17 08:31 APTT 41 SECONDS (21-34) H 03/13/17 08:31 - Constitutional Appears: No Acute Distress, Confused, Chronically Ill - Head Exam Head Exam: ATRAUMATIC, NORMAL INSPECTION - Eye Exam Eye Exam: EOMI, Normal appearance - Neck Exam Neck Exam: Normal Inspection. absent: Tenderness - Respiratory Exam Respiratory Exam: Clear to Ausculation Bilateral, NORMAL BREATHING PATTERN - Cardiovascular Exam Cardiovascular Exam: REGULAR RHYTHM, +S1 - GI/Abdominal Exam GI & Abdominal Exam: Soft, Tenderness - Extremities Exam Extremities Exam: Calf Tenderness, Tenderness - Neurological Exam Neurological Exam: Altered, CN II-XII Intact - Skin Skin Exam: Dry, Warm Assessment and Plan (1) Type 1 diabetes mellitus with diabetic nephropathy Status: Acute (2) Gangrene of right foot Status: Acute (3) End stage renal disease Status: Acute (4) Fecal impaction Status: Acute (5) CHF (congestive heart failure) Status: Acute - Assessment and Plan (Free Text) Plan: Dialysis today and TTS Same UF goal Add 2 doses ferrlecit Try fluid restriction again
[2017-04-11] MEDS: Linezolid 600 mg in D5W 300 ml 600 MG/300 ML BAG IVPB SCH (10:08)
[2017-04-11] MEDS: Ferric Sodium Gluconat Complex 62.5 mg/5 ml Vial IVPB SCH (10:12)
[2017-04-11] MEDS: Meropenem 500 MG in Dextrose 5% In Water 100 ML IVPB SCH (12:25)
[2017-04-11] MEDS ORDERED: EPOETIN ALFA 10,000 UNIT/ML ML IV SCH (17:36)
--- NOTE | 2017-04-11 19:29 | CP.PCM.PN ---
Subjective - Date & Time of Evaluation Date of Evaluation: 04/11/17 Time of Evaluation: 10:00 - Subjective Subjective: pt has received 7 days iv rx post amp will d/c antibiotics Objective - Vital Signs/Intake and Output Vital Signs (last 24 hours): Temp Pulse Resp BP Pulse Ox 98.2 F 88 18 92/40 L 98 04/11/17 16:00 04/11/17 18:28 04/11/17 18:28 04/11/17 18:28 04/11/17 18:28 Intake and Output: 04/11/17 04/12/17 18:59 06:59 Intake Total 500 Output Total 75 Balance 425 - Medications Medications: Current Medications Acetaminophen (Tylenol 325mg Tab) 650 mg PO Q8H [facility] Last Admin: 04/11/17 10:09 Dose: 650 mg Albuterol/Ipratropium (Duoneb 3 Mg/0.5 Mg (3 Ml) Ud) 3 ml INH RQ4 [facility] Last Admin: 04/11/17 17:14 Dose: Not Given Aspirin (Ecotrin) 81 mg PO DAILY [facility] Last Admin: 04/11/17 10:10 Dose: 81 mg Carvedilol (Coreg) 25 mg PO BID [facility] Last Admin: 04/11/17 10:10 Dose: 25 mg Clopidogrel Bisulfate (Plavix) 75 mg PO DAILY [facility] Last Admin: 04/11/17 10:10 Dose: 75 mg Diphenhydramine HCl (Benadryl) 25 mg IVP Q4 PRN PRN Reason: Itching / Pruritus Last Admin: 04/11/17 13:12 Dose: 25 mg Epoetin Alec (Procrit) 10,000 unit IV TuThSa [facility] Last Admin: 04/11/17 18:01 Dose: 10,000 unit Famotidine (Pepcid) 20 mg PO DAILY [facility] Last Admin: 04/11/17 10:10 Dose: 20 mg Ferric Sodium Gluconate Complex (Ferrlecit) 125 mg IVPB DAILY [facility] Stop: 04/13/17 10:01 Last Admin: 04/11/17 10:12 Dose: 125 mg Heparin Sodium (Porcine) (Heparin) 5,000 units SC Q12H [facility] Last Admin: 04/11/17 13:12 Dose: 5,000 units Hydromorphone HCl (Dilaudid) 0.5 mg IVP Q3H PRN PRN Reason: Pain, severe (8-10) Last Admin: 04/11/17 15:40 Dose: 0.5 mg Insulin Glargine (Lantus) 10 unit SC HS [facility] Last Admin: 04/10/17 22:00 Dose: Not Given Insulin Human Regular (Novolin R) 0 unit SC ACHS [facility] PRN Reason: Protocol Last Admin: 04/11/17 16:11 Dose: Not Given Ondansetron HCl (Zofran Inj) 4 mg IVP Q4 PRN PRN Reason: Nausea/Vomiting Vitamin B Complex/Vit C/Folic Acid (Nephro-Cony) 1 tab PO 0800 [facility] Last Admin: 04/11/17 07:58 Dose: 1 tab - Labs Labs: 04/09/17 10:29 04/10/17 15:12 PT 11.7 SECONDS (9.7-12.2) 03/13/17 08:31 INR 1.0 03/13/17 08:31 APTT 41 SECONDS (21-34) H 03/13/17 08:31 Assessment and Plan (1) Gangrene of right foot Status: Acute (2) Chronic anemia Status: Acute (3) Chronic congestive heart failure Status: Acute (4) Diabetes mellitus Status: Acute (5) ESRD on peritoneal dialysis Status: Acute
[2017-04-11] MEDS: EPOETIN ALFA 10,000 UNIT/ML ML IV SCH (19:40)
[2017-04-11] MEDS: (Lantus) Insulin Glargine, Recombinant SC SCH (21:21)
[2017-04-12] MEDS: HYDROmorphone 1 mg/ml ISec IVP PRN ×4 (01:29→11:16)
[2017-04-12] MEDS: DiphenhydrAMINE 50 mg/ml Inj IVP PRN ×4 (01:29→15:06)
[2017-04-12] MEDS: Albuterol-Ipratrop 3 mg / 0.5 (3 ml) UD INH SCH ×6 (04:10→19:50)
[2017-04-12] MEDS: (Novolin R) Insulin Human Regular 100 units/ml vial SC SCH ×4 (07:40→22:02)
[2017-04-12] MEDS: Multivitamin Vitamin B Complex (Nephro-Vite) Tab PO SCH (08:31)
--- NOTE | 2017-04-12 09:06 | CP.PCM.PN ---
Subjective - Date & Time of Evaluation Date of Evaluation: 04/12/17 Time of Evaluation: 07:15 - Subjective Subjective: General Surgery progress note for Dr. Clark. Patient seen and examined at bedside this AM. Patient resting comfortably with no complaints of pain, but complains of persistent dry cough overnight. As per overnight nurse, patient has been refusing her Duoneb treatments and some of her scheduled Tylenol. Denies fever, chills, nausea, vomiting. Objective - Vital Signs/Intake and Output Vital Signs (last 24 hours): Temp Pulse Resp BP Pulse Ox 98.6 F 105 H 20 127/82 82 L 04/12/17 08:47 04/12/17 08:47 04/12/17 08:47 04/12/17 08:47 04/12/17 08:47 Intake and Output: 04/12/17 04/12/17 06:59 18:59 Intake Total 320 120 Output Total 1860 160 Balance -1540 -40 - Medications Medications: Current Medications Acetaminophen (Tylenol 325mg Tab) 650 mg PO Q8H [facility] Last Admin: 04/12/17 08:27 Dose: 650 mg Albuterol/Ipratropium (Duoneb 3 Mg/0.5 Mg (3 Ml) Ud) 3 ml INH RQ4 [facility] Last Admin: 04/12/17 08:06 Dose: Not Given Aspirin (Ecotrin) 81 mg PO DAILY [facility] Last Admin: 04/11/17 10:10 Dose: 81 mg Carvedilol (Coreg) 25 mg PO BID [facility] Last Admin: 04/11/17 19:37 Dose: Not Given Clopidogrel Bisulfate (Plavix) 75 mg PO DAILY [facility] Last Admin: 04/11/17 10:10 Dose: 75 mg Diphenhydramine HCl (Benadryl) 25 mg IVP Q4 PRN PRN Reason: Itching / Pruritus Last Admin: 04/12/17 05:13 Dose: 25 mg Epoetin Alec (Procrit) 10,000 unit IV TuThSa [facility] Last Admin: 04/11/17 18:01 Dose: 10,000 unit Famotidine (Pepcid) 20 mg PO DAILY [facility] Last Admin: 04/11/17 10:10 Dose: 20 mg Ferric Sodium Gluconate Complex (Ferrlecit) 125 mg IVPB DAILY [facility] Stop: 04/13/17 10:01 Last Admin: 04/11/17 10:12 Dose: 125 mg Heparin Sodium (Porcine) (Heparin) 5,000 units SC Q12H [facility] Last Admin: 04/12/17 01:29 Dose: 5,000 units Hydromorphone HCl (Dilaudid) 0.5 mg IVP Q3H PRN PRN Reason: Pain, severe (8-10) Last Admin: 04/12/17 08:21 Dose: 0.5 mg Insulin Glargine (Lantus) 10 unit SC HS [facility] Last Admin: 04/11/17 21:21 Dose: Not Given Insulin Human Regular (Novolin R) 0 unit SC ACHS [facility] PRN Reason: Protocol Last Admin: 04/12/17 07:40 Dose: Not Given Vitamin B Complex/Vit C/Folic Acid (Nephro-Cony) 1 tab PO 0800 [facility] Last Admin: 04/12/17 08:31 Dose: 1 tab - Labs Labs: 04/09/17 10:29 04/10/17 15:12 PT 11.7 SECONDS (9.7-12.2) 03/13/17 08:31 INR 1.0 03/13/17 08:31 APTT 41 SECONDS (21-34) H 03/13/17 08:31 - Constitutional Appears: Well, No Acute Distress - Head Exam Head Exam: NORMAL INSPECTION, NORMOCEPHALIC - Eye Exam Eye Exam: EOMI, Normal appearance - ENT Exam ENT Exam: Mucous Membranes Dry - Neck Exam Neck Exam: Full ROM - Respiratory Exam Respiratory Exam: Decreased Breath Sounds, Wheezes, NORMAL BREATHING PATTERN. absent: Accessory Muscle Use, Rales Additional comments: expiratory wheeze at left base - Cardiovascular Exam Cardiovascular Exam: RRR, +S1, +S2 Additional comments: +S3 - GI/Abdominal Exam Additional comments: Soft, mild tenderness bordering vertical surgical site Purulent drainage able to be expressed from superior portion of incision Packing removed and repacked 40 mL serosanguinous output in kala drain at left abdomen Brown liquid in ileostomy bag at right abdomen - Extremities Exam Extremities Exam: Full ROM Additional comments: Right BKA dressing clean, dry, and intact - Neurological Exam Neurological Exam: Alert, Awake - Psychiatric Exam Psychiatric exam: Depressed, Flat Affect - Skin Skin Exam: Dry, Normal Color, Warm. absent: Erythema Assessment and Plan - Assessment and Plan (Free Text) Assessment: 51 year old female with PMHx of PVD, DM, HTN, ESRD previously on PD, now s/p subtotal colectomy with ileostomy POD#16, right BKA POD#7. - Afebrile, mild tachycardia this AM - Tolerating renal dialysis/CCD diet - Encouraged PT, and IS use - Sole Assessor patient on using Duoneb treatments - Will continue to follow up drain output - Packing removed this AM and repacked into superior portion of midline incision - Discussed plan with Dr. Eduardo Chin PGY-3
[2017-04-12] MEDS: Ferric Sodium Gluconat Complex 62.5 mg/5 ml Vial IVPB SCH (09:26)
[2017-04-12] MEDS: HYDROmorphone 0.5 mg/0.5 ml ISec IVP PRN ×2 (15:06→21:52)
--- NOTE | 2017-04-12 15:20 | CP.PCM.PN ---
Subjective - Date & Time of Evaluation Date of Evaluation: 04/12/17 Time of Evaluation: 15:18 - Subjective Subjective: Feels better Off ABs HTN controlled No new labs BK wounds healing Objective - Vital Signs/Intake and Output Vital Signs (last 24 hours): Temp Pulse Resp BP Pulse Ox 98.6 F 105 H 20 127/82 82 L 04/12/17 08:47 04/12/17 08:47 04/12/17 08:47 04/12/17 09:22 04/12/17 08:47 Intake and Output: 04/12/17 04/12/17 06:59 18:59 Intake Total 320 120 Output Total 1860 160 Balance -1540 -40 - Medications Medications: Current Medications Acetaminophen (Tylenol 325mg Tab) 650 mg PO Q8H [facility] Last Admin: 04/12/17 08:27 Dose: 650 mg Albuterol/Ipratropium (Duoneb 3 Mg/0.5 Mg (3 Ml) Ud) 3 ml INH RQ4 [facility] Last Admin: 04/12/17 08:06 Dose: Not Given Aspirin (Ecotrin) 81 mg PO DAILY [facility] Last Admin: 04/12/17 09:23 Dose: 81 mg Carvedilol (Coreg) 25 mg PO BID [facility] Last Admin: 04/12/17 09:22 Dose: 25 mg Clopidogrel Bisulfate (Plavix) 75 mg PO DAILY [facility] Last Admin: 04/12/17 09:23 Dose: 75 mg Diphenhydramine HCl (Benadryl) 25 mg IVP Q4 PRN PRN Reason: Itching / Pruritus Last Admin: 04/12/17 15:06 Dose: 25 mg Epoetin Alec (Procrit) 10,000 unit IV TuThSa [facility] Last Admin: 04/11/17 18:01 Dose: 10,000 unit Famotidine (Pepcid) 20 mg PO DAILY [facility] Last Admin: 04/12/17 09:22 Dose: 20 mg Ferric Sodium Gluconate Complex (Ferrlecit) 125 mg IVPB DAILY [facility] Stop: 04/13/17 10:01 Last Admin: 04/12/17 09:26 Dose: 125 mg Heparin Sodium (Porcine) (Heparin) 5,000 units SC Q12H [facility] Last Admin: 04/12/17 13:47 Dose: 5,000 units Hydromorphone HCl (Dilaudid) 0.5 mg IVP Q3H PRN PRN Reason: Pain, moderate (4-7) Last Admin: 04/12/17 15:06 Dose: 0.5 mg Insulin Glargine (Lantus) 10 unit SC HS [facility] Last Admin: 04/11/17 21:21 Dose: Not Given Insulin Human Regular (Novolin R) 0 unit SC ACHS [facility] PRN Reason: Protocol Last Admin: 04/12/17 11:25 Dose: Not Given Vitamin B Complex/Vit C/Folic Acid (Nephro-Cony) 1 tab PO 0800 [facility] Last Admin: 04/12/17 08:31 Dose: 1 tab - Labs Labs: 04/09/17 10:29 04/10/17 15:12 PT 11.7 SECONDS (9.7-12.2) 03/13/17 08:31 INR 1.0 03/13/17 08:31 APTT 41 SECONDS (21-34) H 03/13/17 08:31 - Constitutional Appears: No Acute Distress, Chronically Ill - Head Exam Head Exam: ATRAUMATIC, NORMAL INSPECTION - Eye Exam Eye Exam: EOMI, Normal appearance - Neck Exam Neck Exam: Normal Inspection. absent: Tenderness - Respiratory Exam Respiratory Exam: Clear to Ausculation Bilateral, NORMAL BREATHING PATTERN - Cardiovascular Exam Cardiovascular Exam: REGULAR RHYTHM, +S1 - GI/Abdominal Exam GI & Abdominal Exam: Soft. absent: Tenderness - Extremities Exam Extremities Exam: Normal Inspection. absent: Tenderness - Neurological Exam Neurological Exam: Alert, CN II-XII Intact - Skin Skin Exam: Dry, Warm Assessment and Plan (1) Type 1 diabetes mellitus with diabetic nephropathy Status: Acute (2) Gangrene of right foot Status: Acute (3) End stage renal disease Status: Acute (4) Fecal impaction Status: Acute (5) CHF (congestive heart failure) Status: Acute - Assessment and Plan (Free Text) Plan: Continue dialysis TTS Repeat labs Wound care
--- NOTE | 2017-04-12 21:28 | CP.PCM.PN ---
Subjective - Date & Time of Evaluation Date of Evaluation: 04/12/17 Time of Evaluation: 21:27 - Subjective Subjective: Explained to the patient about the pain. Suggested to add gabapentin. Patient is eating today. No chest pain or shortness of breath Vital signs stable. chest good air entry, regular heart sound, nontender abdomen. Ileostomy working well. Assessment and recommendation: 51-year-old with multiple medical problem now. Recovering from right below-knee amputation. Patient had ileostomy. Will continue the current treatmentPhysical therapy. Objective - Vital Signs/Intake and Output Vital Signs (last 24 hours): Temp Pulse Resp BP Pulse Ox 97.9 F 93 H 20 107/60 99 04/12/17 16:00 04/12/17 16:00 04/12/17 16:00 04/12/17 17:07 04/12/17 16:00 Intake and Output: 04/12/17 04/13/17 18:59 06:59 Intake Total 120 Output Total 160 Balance -40 - Medications Medications: Current Medications Acetaminophen (Tylenol 325mg Tab) 650 mg PO Q8H [facility] Last Admin: 04/12/17 17:08 Dose: 650 mg Albuterol/Ipratropium (Duoneb 3 Mg/0.5 Mg (3 Ml) Ud) 3 ml INH RQ4 [facility] Last Admin: 04/12/17 19:50 Dose: Not Given Aspirin (Ecotrin) 81 mg PO DAILY [facility] Last Admin: 04/12/17 09:23 Dose: 81 mg Carvedilol (Coreg) 25 mg PO BID [facility] Last Admin: 04/12/17 17:07 Dose: 25 mg Clopidogrel Bisulfate (Plavix) 75 mg PO DAILY [facility] Last Admin: 04/12/17 09:23 Dose: 75 mg Diphenhydramine HCl (Benadryl) 25 mg IVP Q4 PRN PRN Reason: Itching / Pruritus Last Admin: 04/12/17 15:06 Dose: 25 mg Epoetin Alec (Procrit) 10,000 unit IV TuThSa [facility] Last Admin: 04/11/17 18:01 Dose: 10,000 unit Famotidine (Pepcid) 20 mg PO DAILY [facility] Last Admin: 04/12/17 09:22 Dose: 20 mg Ferric Sodium Gluconate Complex (Ferrlecit) 125 mg IVPB DAILY [facility] Stop: 04/13/17 10:01 Last Admin: 04/12/17 09:26 Dose: 125 mg Gabapentin (Neurontin) 100 mg PO HS [facility] Heparin Sodium (Porcine) (Heparin) 5,000 units SC Q12H [facility] Last Admin: 04/12/17 13:47 Dose: 5,000 units Hydromorphone HCl (Dilaudid) 0.5 mg IVP Q3H PRN PRN Reason: Pain, moderate (4-7) Last Admin: 04/12/17 15:06 Dose: 0.5 mg Insulin Glargine (Lantus) 10 unit SC HS [facility] Last Admin: 04/11/17 21:21 Dose: Not Given Insulin Human Regular (Novolin R) 0 unit SC ACHS [facility] PRN Reason: Protocol Last Admin: 04/12/17 17:08 Dose: 1 unit Vitamin B Complex/Vit C/Folic Acid (Nephro-Cony) 1 tab PO 0800 [facility] Last Admin: 04/12/17 08:31 Dose: 1 tab - Labs Labs: 04/09/17 10:29 04/10/17 15:12 PT 11.7 SECONDS (9.7-12.2) 03/13/17 08:31 INR 1.0 03/13/17 08:31 APTT 41 SECONDS (21-34) H 03/13/17 08:31
[2017-04-12] MEDS: (Lantus) Insulin Glargine, Recombinant SC SCH (22:02)
[2017-04-13] MEDS: Albuterol-Ipratrop 3 mg / 0.5 (3 ml) UD INH SCH ×6 (00:05→19:00)
[2017-04-13] MEDS: DiphenhydrAMINE 50 mg/ml Inj IVP PRN ×5 (00:50→23:52)
[2017-04-13] MEDS: HYDROmorphone 0.5 mg/0.5 ml ISec IVP PRN ×5 (01:07→23:52)
--- NOTE | 2017-04-13 07:50 | CP.PCM.PN ---
Subjective - Date & Time of Evaluation Date of Evaluation: 04/13/17 Time of Evaluation: 07:20 - Subjective Subjective: General Surgery progress Note for Dr. Clark. Patient seen and examined at bedside this AM. No acute event overnight. Patient resting in bed complaining of pain. She is not feeling well today. She is tolerating diet and having BM. Objective - Vital Signs/Intake and Output Vital Signs (last 24 hours): Temp Pulse Resp BP Pulse Ox 98.0 F 93 H 20 164/82 H 99 04/13/17 00:00 04/13/17 00:00 04/13/17 00:00 04/13/17 00:00 04/13/17 00:00 Intake and Output: 04/13/17 04/13/17 06:59 18:59 Intake Total 150 120 Output Total 100 305 Balance 50 -185 - Medications Medications: Current Medications Acetaminophen (Tylenol 325mg Tab) 650 mg PO Q8H [facility] Last Admin: 04/13/17 02:47 Dose: 650 mg Albuterol/Ipratropium (Duoneb 3 Mg/0.5 Mg (3 Ml) Ud) 3 ml INH RQ4 [facility] Last Admin: 04/13/17 07:34 Dose: Not Given Aspirin (Ecotrin) 81 mg PO DAILY [facility] Last Admin: 04/12/17 09:23 Dose: 81 mg Carvedilol (Coreg) 25 mg PO BID [facility] Last Admin: 04/12/17 17:07 Dose: 25 mg Clopidogrel Bisulfate (Plavix) 75 mg PO DAILY [facility] Last Admin: 04/12/17 09:23 Dose: 75 mg Diphenhydramine HCl (Benadryl) 25 mg IVP Q4 PRN PRN Reason: Itching / Pruritus Last Admin: 04/13/17 00:50 Dose: 25 mg Epoetin Alec (Procrit) 10,000 unit IV TuThSa [facility] Last Admin: 04/11/17 18:01 Dose: 10,000 unit Famotidine (Pepcid) 20 mg PO DAILY [facility] Last Admin: 04/12/17 09:22 Dose: 20 mg Ferric Sodium Gluconate Complex (Ferrlecit) 125 mg IVPB DAILY [facility] Stop: 04/13/17 10:01 Last Admin: 04/12/17 09:26 Dose: 125 mg Gabapentin (Neurontin) 100 mg PO HS [facility] Last Admin: 04/12/17 21:52 Dose: 100 mg Heparin Sodium (Porcine) (Heparin) 5,000 units SC Q12H [facility] Last Admin: 04/13/17 01:02 Dose: 5,000 units Hydromorphone HCl (Dilaudid) 0.5 mg IVP Q3H PRN PRN Reason: Pain, moderate (4-7) Last Admin: 04/13/17 01:07 Dose: 0.5 mg Insulin Glargine (Lantus) 10 unit SC HS [facility] Last Admin: 04/12/17 22:02 Dose: Not Given Insulin Human Regular (Novolin R) 0 unit SC ACHS [facility] PRN Reason: Protocol Last Admin: 04/12/17 22:02 Dose: Not Given Vitamin B Complex/Vit C/Folic Acid (Nephro-Cony) 1 tab PO 0800 [facility] Last Admin: 04/12/17 08:31 Dose: 1 tab - Labs Labs: 04/09/17 10:29 04/10/17 15:12 PT 11.7 SECONDS (9.7-12.2) 03/13/17 08:31 INR 1.0 03/13/17 08:31 APTT 41 SECONDS (21-34) H 03/13/17 08:31 - Constitutional Appears: No Acute Distress - Head Exam Head Exam: ATRAUMATIC, NORMOCEPHALIC - Eye Exam Eye Exam: EOMI, Normal appearance Pupil Exam: PERRL - ENT Exam ENT Exam: Mucous Membranes Moist - Respiratory Exam Respiratory Exam: Wheezes, NORMAL BREATHING PATTERN - Cardiovascular Exam Cardiovascular Exam: REGULAR RHYTHM - GI/Abdominal Exam GI & Abdominal Exam: Soft Additional comments: tenderness at superior pole of surgical site small amount of drainage from superior pole of incision serosanguinous output in kala drain soft brown stool from ileostomy - Extremities Exam Additional comments: Right BKA dressing clean, dry, and intact - Neurological Exam Neurological Exam: Alert, Awake, CN II-XII Intact, Oriented x3 - Psychiatric Exam Psychiatric exam: Agitated - Skin Skin Exam: Dry, Warm Assessment and Plan - Assessment and Plan (Free Text) Plan: 51 F s/p subtotal colectomy with ileostomy POD#17, right BKA POD#8 with drainage from midline incision -Dressing changes and packing -Knee immobilizer -Restart IV antibiotics -Analgesics PRN -Duonebs -Encouraged PT and IS use -Discussed plan with Dr. Eduardo Grajeda PGY1
[2017-04-13] MEDS: (Novolin R) Insulin Human Regular 100 units/ml vial SC SCH ×4 (08:45→21:45)
[2017-04-13] MEDS: Ferric Sodium Gluconat Complex 62.5 mg/5 ml Vial IVPB SCH (09:10)
[2017-04-13] MEDS: Multivitamin Vitamin B Complex (Nephro-Vite) Tab PO SCH (09:10)
--- NOTE | 2017-04-13 11:11 | CP.PCM.PN ---
Subjective - Date & Time of Evaluation Date of Evaluation: 04/13/17 Time of Evaluation: 10:40 - Subjective Subjective: sleepy due to pain meds not cooperative with exam no recent labs HD today continues wound care ROS cannot be obtained due to uncooperative patient Objective - Vital Signs/Intake and Output Vital Signs (last 24 hours): Temp Pulse Resp BP Pulse Ox 98.8 F 98 H 20 152/85 H 99 04/13/17 07:52 04/13/17 07:52 04/13/17 07:52 04/13/17 07:52 04/13/17 07:52 Intake and Output: 04/13/17 04/13/17 06:59 18:59 Intake Total 150 120 Output Total 100 305 Balance 50 -185 - Medications Medications: Current Medications Acetaminophen (Tylenol 325mg Tab) 650 mg PO Q8H [facility] Last Admin: 04/13/17 09:10 Dose: 650 mg Albuterol/Ipratropium (Duoneb 3 Mg/0.5 Mg (3 Ml) Ud) 3 ml INH RQ4 [facility] Last Admin: 04/13/17 11:05 Dose: Not Given Aspirin (Ecotrin) 81 mg PO DAILY [facility] Last Admin: 04/13/17 09:12 Dose: 81 mg Carvedilol (Coreg) 25 mg PO BID [facility] Last Admin: 04/13/17 09:12 Dose: Not Given Clopidogrel Bisulfate (Plavix) 75 mg PO DAILY [facility] Last Admin: 04/13/17 09:10 Dose: 75 mg Diphenhydramine HCl (Benadryl) 25 mg IVP Q4 PRN PRN Reason: Itching / Pruritus Last Admin: 04/13/17 09:18 Dose: 25 mg Epoetin Alec (Procrit) 10,000 unit IV TuThSa [facility] Last Admin: 04/11/17 18:01 Dose: 10,000 unit Famotidine (Pepcid) 20 mg PO DAILY [facility] Last Admin: 04/13/17 09:12 Dose: 20 mg Gabapentin (Neurontin) 100 mg PO HS [facility] Last Admin: 04/12/17 21:52 Dose: 100 mg Heparin Sodium (Porcine) (Heparin) 5,000 units SC Q12H [facility] Last Admin: 04/13/17 01:02 Dose: 5,000 units Hydromorphone HCl (Dilaudid) 0.5 mg IVP Q3H PRN PRN Reason: Pain, moderate (4-7) Last Admin: 04/13/17 09:19 Dose: 0.5 mg Insulin Glargine (Lantus) 10 unit SC HS [facility] Last Admin: 04/12/17 22:02 Dose: Not Given Insulin Human Regular (Novolin R) 0 unit SC ACHS [facility] PRN Reason: Protocol Last Admin: 04/13/17 08:45 Dose: Not Given Vitamin B Complex/Vit C/Folic Acid (Nephro-Cony) 1 tab PO 0800 [facility] Last Admin: 04/13/17 09:10 Dose: 1 tab - Labs Labs: 04/09/17 10:29 04/10/17 15:12 PT 11.7 SECONDS (9.7-12.2) 03/13/17 08:31 INR 1.0 03/13/17 08:31 APTT 41 SECONDS (21-34) H 03/13/17 08:31 - Constitutional Appears: Confused, Chronically Ill - ENT Exam ENT Exam: Mucous Membranes Moist - Respiratory Exam Respiratory Exam: Clear to Ausculation Bilateral. absent: Accessory Muscle Use - GI/Abdominal Exam GI & Abdominal Exam: Distended, Soft Additional comments: ileostomy - Extremities Exam Extremities Exam: absent: Pedal Edema Additional comments: right bka - Neurological Exam Neurological Exam: absent: Alert Assessment and Plan - Assessment and Plan (Free Text) Assessment: esrd HD today wound care of amputation f/u labs
[2017-04-13 15:39] LABS: POTASSIUM 4.4 mmol/L (3.6-5.2)
[2017-04-13 15:41] LABS: ALB/GLOB RATIO 0.7 (1.0-2.1); BILIRUBIN,TOTAL 0.4 mg/dL (0.2-1.3); TOTAL PROTEIN 7.1 g/dL (6.3-8.3)
[2017-04-13 15:42] LABS: CALCIUM 8.9 mg/dl (8.6-10.4)
[2017-04-13 15:44] LABS: BASO # 0.1 K/uL (0.0-0.2); BASO % 0.8 % (0.0-2.0); EOS # 0.1 K/uL (0.0-0.7); EOS % 0.9 % (0.0-4.0); HEMATOCRIT 25.7 % (34.0-47.0); LYMPH # 2.2 K/uL (1.0-4.3); LYMPH % 16.2 % (20.0-40.0); MEAN CORPUSCULAR HGB CONC 31.8 g/dL (33.0-37.0); MEAN PLATELET VOLUME 7.7 fL (7.2-11.7); MONO # 1.1 K/uL (0.0-0.8); MONO % 7.9 % (0.0-10.0); RED CELL DISTRIBUTION WIDTH 16.1 % (11.5-14.5); WHITE BLOOD COUNT 13.3 K/uL (4.8-10.8)
[2017-04-13 15:50] LABS: MEAN CELL VOLUME 94.3 fL (81.0-99.0)
[2017-04-13] MEDS ORDERED: Albumin Human 25% (12.5 gm/50 ml) IV ONE (16:00)
[2017-04-13] MEDS: Epoetin Alfa 10,000 unit/ml Dialysis IV SCH (17:39)
--- NOTE | 2017-04-13 17:55 | CP.PCM.PN ---
Subjective - Date & Time of Evaluation Date of Evaluation: 04/13/17 Time of Evaluation: 17:54 - Subjective Subjective: Presence of WBC elevated. No fever. No chest pain. Appetite is okay. Spoke to the surgery team Because of the elevated WBC I suggested that we will start the patient on antibiotic again Continue the current treatment Objective - Vital Signs/Intake and Output Vital Signs (last 24 hours): Temp Pulse Resp BP Pulse Ox 97.4 F L 86 20 167/90 H 100 04/13/17 14:40 04/13/17 14:40 04/13/17 14:40 04/13/17 17:25 04/13/17 14:40 Intake and Output: 04/13/17 04/13/17 06:59 18:59 Intake Total 150 120 Output Total 100 305 Balance 50 -185 - Medications Medications: Current Medications Acetaminophen (Tylenol 325mg Tab) 650 mg PO Q8H [facility] Last Admin: 04/13/17 09:10 Dose: 650 mg Albuterol/Ipratropium (Duoneb 3 Mg/0.5 Mg (3 Ml) Ud) 3 ml INH RQ4 [facility] Last Admin: 04/13/17 15:37 Dose: Not Given Aspirin (Ecotrin) 81 mg PO DAILY [facility] Last Admin: 04/13/17 09:12 Dose: 81 mg Carvedilol (Coreg) 6.25 mg PO BID [facility] Clopidogrel Bisulfate (Plavix) 75 mg PO DAILY [facility] Last Admin: 04/13/17 09:10 Dose: 75 mg Diphenhydramine HCl (Benadryl) 25 mg IVP Q4 PRN PRN Reason: Itching / Pruritus Last Admin: 04/13/17 15:26 Dose: 25 mg Epoetin Alec (Procrit) 10,000 unit IV TuThSa [facility] Last Admin: 04/13/17 17:39 Dose: 10,000 unit Famotidine (Pepcid) 20 mg PO DAILY [facility] Last Admin: 04/13/17 09:12 Dose: 20 mg Gabapentin (Neurontin) 100 mg PO HS [facility] Last Admin: 04/12/17 21:52 Dose: 100 mg Heparin Sodium (Porcine) (Heparin) 5,000 units SC Q12H [facility] Last Admin: 04/13/17 12:37 Dose: 5,000 units Hydromorphone HCl (Dilaudid) 0.5 mg IVP Q3H PRN PRN Reason: Pain, moderate (4-7) Last Admin: 04/13/17 14:45 Dose: 0.5 mg Insulin Glargine (Lantus) 10 unit SC HS [facility] Last Admin: 04/12/17 22:02 Dose: Not Given Insulin Human Regular (Novolin R) 0 unit SC ACHS [facility] PRN Reason: Protocol Last Admin: 04/13/17 12:07 Dose: Not Given Vitamin B Complex/Vit C/Folic Acid (Nephro-Cony) 1 tab PO 0800 [facility] Last Admin: 04/13/17 09:10 Dose: 1 tab - Labs Labs: 04/13/17 15:24 04/13/17 15:24 PT 11.7 SECONDS (9.7-12.2) 03/13/17 08:31 INR 1.0 03/13/17 08:31 APTT 41 SECONDS (21-34) H 03/13/17 08:31
[2017-04-13] MEDS ORDERED: Meropenem 500 MG in Dextrose 5% In Water 100 ML IVPB ONE (18:00)
[2017-04-13] MEDS: (Lantus) Insulin Glargine, Recombinant SC SCH (21:52)
[2017-04-14] MEDS: Albuterol-Ipratrop 3 mg / 0.5 (3 ml) UD INH SCH ×6 (00:50→20:03)
[2017-04-14] MEDS: HYDROmorphone 0.5 mg/0.5 ml ISec IVP PRN ×5 (04:06→22:02)
[2017-04-14] MEDS: DiphenhydrAMINE 50 mg/ml Inj IVP PRN ×5 (04:06→22:01)
--- NOTE | 2017-04-14 08:05 | CP.PCM.PN ---
Subjective - Date & Time of Evaluation Date of Evaluation: 04/14/17 Time of Evaluation: 07:30 - Subjective Subjective: General Surgery progress Note for Dr. Clark. Patient seen and examined at bedside this AM. No acute event overnight. Patient resting in bed comfortably. Patient feeling better today than yesterday. She still complains of pain in R lower extremity. She is tolerating diet and having BMs. Dressing and packing was changed today. Knee immobilizer was sitting unopened at bedside and was placed on R lower extremity. Objective - Vital Signs/Intake and Output Vital Signs (last 24 hours): Temp Pulse Resp BP Pulse Ox 98.6 F 109 H 20 131/70 97 04/14/17 00:00 04/14/17 00:00 04/14/17 00:00 04/14/17 00:00 04/14/17 00:00 Intake and Output: 04/14/17 04/14/17 06:59 18:59 Intake Total 640 Output Total 232 Balance 408 - Medications Medications: Current Medications Acetaminophen (Tylenol 325mg Tab) 650 mg PO Q8H [facility] Last Admin: 04/14/17 00:37 Dose: Not Given Albuterol/Ipratropium (Duoneb 3 Mg/0.5 Mg (3 Ml) Ud) 3 ml INH RQ4 [facility] Last Admin: 04/14/17 07:26 Dose: Not Given Aspirin (Ecotrin) 81 mg PO DAILY [facility] Last Admin: 04/13/17 09:12 Dose: 81 mg Carvedilol (Coreg) 6.25 mg PO BID [facility] Last Admin: 04/13/17 18:55 Dose: 6.25 mg Clopidogrel Bisulfate (Plavix) 75 mg PO DAILY [facility] Last Admin: 04/13/17 09:10 Dose: 75 mg Diphenhydramine HCl (Benadryl) 25 mg IVP Q4 PRN PRN Reason: Itching / Pruritus Last Admin: 04/14/17 04:06 Dose: 25 mg Epoetin Alec (Procrit) 10,000 unit IV TuThSa [facility] Last Admin: 04/13/17 17:39 Dose: 10,000 unit Famotidine (Pepcid) 20 mg PO DAILY [facility] Last Admin: 04/13/17 09:12 Dose: 20 mg Gabapentin (Neurontin) 100 mg PO HS [facility] Last Admin: 04/13/17 21:42 Dose: 100 mg Heparin Sodium (Porcine) (Heparin) 5,000 units SC Q12H [facility] Last Admin: 04/14/17 00:43 Dose: 5,000 units Hydromorphone HCl (Dilaudid) 0.5 mg IVP Q3H PRN PRN Reason: Pain, moderate (4-7) Last Admin: 04/14/17 04:06 Dose: 0.5 mg Insulin Glargine (Lantus) 10 unit SC HS [facility] Last Admin: 04/13/17 21:52 Dose: 10 units Insulin Human Regular (Novolin R) 0 unit SC ACHS [facility] PRN Reason: Protocol Last Admin: 04/13/17 21:45 Dose: Not Given Vitamin B Complex/Vit C/Folic Acid (Nephro-Cony) 1 tab PO 0800 [facility] Last Admin: 04/13/17 09:10 Dose: 1 tab - Labs Labs: 04/13/17 15:24 04/13/17 15:24 PT 11.7 SECONDS (9.7-12.2) 03/13/17 08:31 INR 1.0 03/13/17 08:31 APTT 41 SECONDS (21-34) H 03/13/17 08:31 - Constitutional Appears: No Acute Distress - Head Exam Head Exam: ATRAUMATIC, NORMOCEPHALIC - Eye Exam Eye Exam: EOMI, Normal appearance Pupil Exam: PERRL - ENT Exam ENT Exam: Mucous Membranes Moist - Respiratory Exam Respiratory Exam: Respiratory Distress - Cardiovascular Exam Cardiovascular Exam: REGULAR RHYTHM - GI/Abdominal Exam GI & Abdominal Exam: Soft, Tenderness (incision site). absent: Distended, Firm , Guarding, Rigid, Rebound Additional comments: tenderness at superior pole of surgical site foul smelling purulent drainage from superior pole of incision minimal serous output in kala drain soft brown stool from ileostomy - Extremities Exam Additional comments: Right BKA dressing clean, dry, and intact knee immobilizer in place - Neurological Exam Neurological Exam: Alert, Awake, Oriented x3 - Psychiatric Exam Psychiatric exam: Normal Affect, Normal Mood - Skin Skin Exam: Dry, Normal Color, Warm Assessment and Plan - Assessment and Plan (Free Text) Plan: 51 F s/p subtotal colectomy with ileostomy POD#18, right BKA POD#9 with drainage from midline incision -Dressing changes and packing -Knee immobilizer -IV antibiotics -Encouraged PT and IS use -Discussed plan with Dr. Eduardo Grajeda PGY1
[2017-04-14] MEDS: (Novolin R) Insulin Human Regular 100 units/ml vial SC SCH ×4 (08:43→21:54)
[2017-04-14] MEDS: Multivitamin Vitamin B Complex (Nephro-Vite) Tab PO SCH (08:43)
--- NOTE | 2017-04-14 11:44 | CP.PCM.CON ---
History of Present Illness - History of Present Illness History of Present Illness: 51 year old female with pmhx including right BKA,PVD, HTN, ESRD (on dialysis), hypercholesterolemia, pneumonia was seen at bedside for left heel unstageable pressure ulcer. Patient is seen applying santyl- which she states she got from rehab to her left heel and wrapping her foot. Patient was instructed to stop using the santyl and to allow the hospital teams to dress her wound. She denies any pain to her left heel. Denies any n/v/f/c/sob/cp. Past Patient History - Infectious Disease Hx of Infectious Diseases: None - Past Medical History & Family History Past Medical History?: Yes - Past Social History Smoking Status: Never Smoked - CARDIAC Hx Hypercholesterolemia: Yes Hx Hypertension: Yes - PULMONARY Hx Bronchitis: Yes Hx Pneumonia: Yes - RENAL Hx Chronic Kidney Disease: Yes Other/Comment: on peritoneal dialysis - ENDOCRINE/METABOLIC Hx Diabetes Mellitus Type 2: Yes - HEMATOLOGICAL/ONCOLOGICAL Hx Anemia: Yes - INTEGUMENTARY Hx Dermatological Problems: Yes Hx Eczema: Yes - MUSCULOSKELETAL/RHEUMATOLOGICAL Hx Falls: Yes - GENITOURINARY/GYNECOLOGICAL Hx Genitourinary Disorders: Yes (DX: RENAL FAILURE) - PSYCHIATRIC Hx Substance Use: No - SURGICAL HISTORY Hx Surgeries: Yes Hx Section: Yes Hx Eye Surgery: Yes (INSERT "GAS" BUBBLE BOTH EYES) Hx Tubal Ligation: Yes Hx Vascular Access Device: Yes (R SC HD cath) Other/Comment: I&D GROIN; 12/30/14 LAPAROSCOPIC INSERTION PERITONEAL DIALYSIS CATHETER. 01/14/15 REVISION DONE OF PERITIONEAL DIALYSIS CATH. - ANESTHESIA Hx Anesthesia: Yes Hx Anesthesia Reactions: No Hx Malignant Hyperthermia: No Meds Allergies/Adverse Reactions: Allergies Allergy/AdvReac Type Severity Reaction Status Date / Time shrimp Allergy Severe RASH Verified 01/11/17 07:35 - Medications Medications: Current Medications Acetaminophen (Tylenol 325mg Tab) 650 mg PO Q8H [facility] Last Admin: 04/14/17 08:45 Dose: Not Given Albuterol/Ipratropium (Duoneb 3 Mg/0.5 Mg (3 Ml) Ud) 3 ml INH RQ4 [facility] Last Admin: 04/14/17 10:59 Dose: Not Given Aspirin (Ecotrin) 81 mg PO DAILY [facility] Last Admin: 04/14/17 09:06 Dose: Not Given Carvedilol (Coreg) 6.25 mg PO BID [facility] Last Admin: 04/14/17 09:06 Dose: Not Given Clopidogrel Bisulfate (Plavix) 75 mg PO DAILY [facility] Last Admin: 04/14/17 09:06 Dose: Not Given Diphenhydramine HCl (Benadryl) 25 mg IVP Q4 PRN PRN Reason: Itching / Pruritus Last Admin: 04/14/17 08:45 Dose: 25 mg Epoetin Alec (Procrit) 10,000 unit IV TuThSa [facility] Last Admin: 04/13/17 17:39 Dose: 10,000 unit Famotidine (Pepcid) 20 mg PO DAILY [facility] Last Admin: 04/14/17 09:06 Dose: Not Given Gabapentin (Neurontin) 100 mg PO HS [facility] Last Admin: 04/13/17 21:42 Dose: 100 mg Heparin Sodium (Porcine) (Heparin) 5,000 units SC Q12H [facility] Last Admin: 04/14/17 00:43 Dose: 5,000 units Hydromorphone HCl (Dilaudid) 0.5 mg IVP Q3H PRN PRN Reason: Pain, moderate (4-7) Last Admin: 04/14/17 08:46 Dose: 0.5 mg Insulin Glargine (Lantus) 10 unit SC HS [facility] Last Admin: 04/13/17 21:52 Dose: 10 units Insulin Human Regular (Novolin R) 0 unit SC ACHS [facility] PRN Reason: Protocol Last Admin: 04/14/17 08:43 Dose: Not Given Vitamin B Complex/Vit C/Folic Acid (Nephro-Cony) 1 tab PO 0800 [facility] Last Admin: 04/14/17 08:43 Dose: 1 tab Physical Exam - Constitutional Appears: Non-toxic, No Acute Distress - Extremities Exam Additional comments: Left lower extremity exam: Vasc: DP and PT pules non-palpable. CFT > 3 seconds to all digits. SKin temperature is cool to cold from proximal to distal. Neuro: Gross sensation diminihsed Ortho: No tenderness on palpation to left heel Derm: Unstageable pressure ulcer noted to the left heel measuring approximately 4 cm by 1 cm. No drainage noted. - Neurological Exam Neurological exam: Alert, Oriented x3 - Psychiatric Exam Psychiatric exam: Normal Affect, Normal Mood Results - Vital Signs Recent Vital Signs: Last Vital Signs Temp 99.7 F H 11/12/17 08:20 Pulse 98 H 04/14/17 08:20 Resp 20 04/14/17 08:20 BP 102/54 L 04/14/17 08:20 Pulse Ox 95 04/14/17 08:20 - Labs Result Diagrams: 04/13/17 15:24 04/13/17 15:24 Labs: Laboratory Results - last 24 hr 04/13/17 04/13/17 04/13/17 15:24 15:24 16:58 WBC 13.3 H RBC 2.73 L Hgb 8.2 L Hct 25.7 L MCV 94.3 D MCH 30.0 MCHC 31.8 L RDW 16.1 H Plt Count 245 MPV 7.7 Neut % (Auto) 74.2 Lymph % (Auto) 16.2 L [place] % (Auto) 7.9 Eos % (Auto) 0.9 Baso % (Auto) 0.8 Neut # 9.9 H Lymph # 2.2 [place] # 1.1 H Eos # 0.1 Baso # 0.1 Sodium 135 Potassium 4.4 Chloride 99 Carbon Dioxide 24 Anion Gap 16 BUN 25 H Creatinine 7.9 H* Est GFR ( Amer) 7 Est GFR (Non-Af Amer) 5 POC Glucose (mg/dL) 133 H Random Glucose 143 H Calcium 8.9 Total Bilirubin 0.4 AST 19 ALT 35 Alkaline Phosphatase 109 Total Protein 7.1 Albumin 2.9 L Globulin 4.2 H Albumin/Globulin Ratio 0.7 L 04/13/17 04/14/17 04/14/17 21:38 01:54 07:11 WBC RBC Hgb Hct MCV MCH MCHC RDW Plt Count MPV Neut % (Auto) Lymph % (Auto) [place] % (Auto) Eos % (Auto) Baso % (Auto) Neut # Lymph # [place] # Eos # Baso # Sodium Potassium Chloride Carbon Dioxide Anion Gap BUN Creatinine Est GFR ( Amer) Est GFR (Non-Af Amer) POC Glucose (mg/dL) 217 H 203 H 226 H Random Glucose Calcium Total Bilirubin AST ALT Alkaline Phosphatase Total Protein Albumin Globulin Albumin/Globulin Ratio 04/14/17 11:16 WBC RBC Hgb Hct MCV MCH MCHC RDW Plt Count MPV Neut % (Auto) Lymph % (Auto) [place] % (Auto) Eos % (Auto) Baso % (Auto) Neut # Lymph # [place] # Eos # Baso # Sodium Potassium Chloride Carbon Dioxide Anion Gap BUN Creatinine Est GFR ( Amer) Est GFR (Non-Af Amer) POC Glucose (mg/dL) 229 H Random Glucose Calcium Total Bilirubin AST ALT Alkaline Phosphatase Total Protein Albumin Globulin Albumin/Globulin Ratio Assessment & Plan - Assessment and Plan (Free Text) Assessment: 51 year old female with left heel unstageable pressure ulcer Plan: Patient examined and evaluated Discussed with attending Dr. Ordonez Chart, labs and vitals reviewed instructed patient to stop using santyl and only dress her foot with DSD offloading boots to remain on left foot at all times while in bed Podiatry will continue to follow
[2017-04-14 11:49] LABS: BASO # 0.1 K/uL (0.0-0.2); BASO % 0.9 % (0.0-2.0); EOS # 0.1 K/uL (0.0-0.7); EOS % 0.9 % (0.0-4.0); HEMATOCRIT 26.8 % (34.0-47.0); LYMPH # 2.6 K/uL (1.0-4.3); LYMPH % 20.1 % (20.0-40.0); MEAN CELL VOLUME 94.7 fL (81.0-99.0); MEAN CORPUSCULAR HEMOGLOBIN 30.8 pg (27.0-31.0); MEAN CORPUSCULAR HGB CONC 32.6 g/dL (33.0-37.0); MEAN PLATELET VOLUME 8.2 fL (7.2-11.7); MONO # 1.3 K/uL (0.0-0.8); MONO % 10.2 % (0.0-10.0); NRBC % 0.7 % (0.0-2.0); RED CELL DISTRIBUTION WIDTH 15.4 % (11.5-14.5); WHITE BLOOD COUNT 12.8 K/uL (4.8-10.8)
[2017-04-14 12:14] LABS: POTASSIUM 4.1 mmol/L (3.6-5.2)
[2017-04-14 12:17] LABS: BILIRUBIN,TOTAL 0.6 mg/dL (0.2-1.3); CALCIUM 8.6 mg/dl (8.6-10.4); TOTAL PROTEIN 6.5 g/dL (6.3-8.3)
--- NOTE | 2017-04-14 15:40 | CP.PCM.PN ---
Subjective - Date & Time of Evaluation Date of Evaluation: 04/14/17 Time of Evaluation: 09:00 - Subjective Subjective: currently off antibiotics had some purulent drainage from abd wound will ask for cultures Objective - Vital Signs/Intake and Output Vital Signs (last 24 hours): Temp Pulse Resp BP Pulse Ox 99.7 F H 98 H 20 102/54 L 95 04/14/17 08:20 04/14/17 08:20 04/14/17 08:20 04/14/17 08:20 04/14/17 08:20 Intake and Output: 04/14/17 04/14/17 06:59 18:59 Intake Total 640 Output Total 232 Balance 408 - Medications Medications: Current Medications Acetaminophen (Tylenol 325mg Tab) 650 mg PO Q8H [facility] Last Admin: 04/14/17 08:45 Dose: Not Given Albuterol/Ipratropium (Duoneb 3 Mg/0.5 Mg (3 Ml) Ud) 3 ml INH RQ4 [facility] Last Admin: 04/14/17 10:59 Dose: Not Given Aspirin (Ecotrin) 81 mg PO DAILY [facility] Last Admin: 04/14/17 09:06 Dose: Not Given Carvedilol (Coreg) 6.25 mg PO BID [facility] Last Admin: 04/14/17 09:06 Dose: Not Given Clopidogrel Bisulfate (Plavix) 75 mg PO DAILY [facility] Last Admin: 04/14/17 09:06 Dose: Not Given Diphenhydramine HCl (Benadryl) 25 mg IVP Q4 PRN PRN Reason: Itching / Pruritus Last Admin: 04/14/17 13:12 Dose: 25 mg Epoetin Alec (Procrit) 10,000 unit IV TuThSa [facility] Last Admin: 04/13/17 17:39 Dose: 10,000 unit Famotidine (Pepcid) 20 mg PO DAILY [facility] Last Admin: 04/14/17 09:06 Dose: Not Given Gabapentin (Neurontin) 100 mg PO [facility] Last Admin: 04/13/17 21:42 Dose: 100 mg Hydromorphone HCl (Dilaudid) 0.5 mg IVP Q3H PRN PRN Reason: Pain, moderate (4-7) Last Admin: 04/14/17 13:12 Dose: 0.5 mg Insulin Glargine (Lantus) 10 unit SC [facility] Last Admin: 04/13/17 21:52 Dose: 10 units Insulin Human Regular (Novolin R) 0 unit SC ACHS [facility] PRN Reason: Protocol Last Admin: 04/14/17 13:11 Dose: 2 unit Vitamin B Complex/Vit C/Folic Acid (Nephro-Cony) 1 tab PO 0800 [facility] Last Admin: 04/14/17 08:43 Dose: 1 tab - Labs Labs: 04/14/17 11:29 04/14/17 11:29 PT 11.7 SECONDS (9.7-12.2) 03/13/17 08:31 INR 1.0 03/13/17 08:31 APTT 41 SECONDS (21-34) H 03/13/17 08:31 Assessment and Plan (1) Gangrene of right foot Status: Acute (2) Chronic anemia Status: Acute (3) Chronic congestive heart failure Status: Acute (4) Diabetes mellitus Status: Acute (5) ESRD on peritoneal dialysis Status: Acute
[2017-04-14] MEDS: Meropenem 500 MG in Dextrose 5% In Water 100 ML IVPB SCH (17:50)
--- NOTE | 2017-04-14 18:59 | CP.PCM.PN ---
Objective - Vital Signs/Intake and Output Vital Signs (last 24 hours): Temp Pulse Resp BP Pulse Ox 99 F 97 H 20 123/71 91 L 04/14/17 15:40 04/14/17 15:40 04/14/17 15:40 04/14/17 15:40 04/14/17 15:40 Intake and Output: 04/14/17 04/14/17 06:59 18:59 Intake Total 640 400 Output Total 232 100 Balance 408 300 - Medications Medications: Current Medications Acetaminophen (Tylenol 325mg Tab) 650 mg PO Q8H [facility] Last Admin: 04/14/17 17:10 Dose: Not Given Albuterol/Ipratropium (Duoneb 3 Mg/0.5 Mg (3 Ml) Ud) 3 ml INH RQ4 [facility] Last Admin: 04/14/17 15:58 Dose: Not Given Aspirin (Ecotrin) 81 mg PO DAILY [facility] Last Admin: 04/14/17 09:06 Dose: Not Given Carvedilol (Coreg) 6.25 mg PO BID [facility] Last Admin: 04/14/17 18:41 Dose: Not Given Clopidogrel Bisulfate (Plavix) 75 mg PO DAILY [facility] Last Admin: 04/14/17 09:06 Dose: Not Given Diphenhydramine HCl (Benadryl) 25 mg IVP Q4 PRN PRN Reason: Itching / Pruritus Last Admin: 04/14/17 18:01 Dose: 25 mg Epoetin Alec (Procrit) 10,000 unit IV TuThSa [facility] Last Admin: 04/13/17 17:39 Dose: 10,000 unit Famotidine (Pepcid) 20 mg PO DAILY [facility] Last Admin: 04/14/17 09:06 Dose: Not Given Gabapentin (Neurontin) 100 mg PO HS [facility] Last Admin: 04/13/17 21:42 Dose: 100 mg Hydromorphone HCl (Dilaudid) 0.5 mg IVP Q3H PRN PRN Reason: Pain, moderate (4-7) Last Admin: 04/14/17 18:02 Dose: 0.5 mg Meropenem 500 mg/ Dextrose 100 mls @ 100 mls/hr IVPB Q12H [facility] Last Admin: 04/14/17 17:50 Dose: 100 mls/hr Insulin Glargine (Lantus) 10 unit SC [facility] Last Admin: 04/13/17 21:52 Dose: 10 units Insulin Human Regular (Novolin R) 0 unit SC ACHS [facility] PRN Reason: Protocol Last Admin: 04/14/17 17:10 Dose: 1 unit Vitamin B Complex/Vit C/Folic Acid (Nephro-Cony) 1 tab PO 0800 [facility] Last Admin: 04/14/17 08:43 Dose: 1 tab - Labs Labs: 04/14/17 11:29 04/14/17 11:29 PT 11.7 SECONDS (9.7-12.2) 03/13/17 08:31 INR 1.0 03/13/17 08:31 APTT 41 SECONDS (21-34) H 03/13/17 08:31
[2017-04-14] MEDS: (Lantus) Insulin Glargine, Recombinant SC SCH (21:53)
[2017-04-15] MEDS: Albuterol-Ipratrop 3 mg / 0.5 (3 ml) UD INH SCH ×3 (00:40→19:32)
[2017-04-15] MEDS: Meropenem 500 MG in Dextrose 5% In Water 100 ML IVPB SCH ×2 (04:51→17:51)
[2017-04-15] MEDS: HYDROmorphone 0.5 mg/0.5 ml ISec IVP PRN ×4 (04:57→17:40)
[2017-04-15] MEDS: (Novolin R) Insulin Human Regular 100 units/ml vial SC SCH ×4 (08:30→22:17)
[2017-04-15] MEDS: Multivitamin Vitamin B Complex (Nephro-Vite) Tab PO SCH (09:31)
[2017-04-15] MEDS: DiphenhydrAMINE 50 mg/ml Inj IVP PRN ×4 (09:36→22:14)
--- NOTE | 2017-04-15 11:59 | CP.PCM.PN ---
Subjective - Date & Time of Evaluation Date of Evaluation: 04/15/17 Time of Evaluation: 11:56 - Subjective Subjective: appears depressed HTN better controlled- carvedilol dose decreased due to 1 episode of hypotension stable dialysis 04/13 Na level improved wounds healing as per surgery c/o weakness- gabapentin dose reduced Objective - Vital Signs/Intake and Output Vital Signs (last 24 hours): Temp Pulse Resp BP Pulse Ox 98.5 F 96 H 20 140/74 99 04/15/17 07:53 04/15/17 07:53 04/15/17 07:53 04/15/17 07:53 04/15/17 07:53 Intake and Output: 04/15/17 04/15/17 06:59 18:59 Intake Total 450 340 Output Total 100 253 Balance 350 87 - Medications Medications: Current Medications Acetaminophen (Tylenol 325mg Tab) 650 mg PO Q8H [facility] Last Admin: 04/15/17 09:34 Dose: 650 mg Albuterol/Ipratropium (Duoneb 3 Mg/0.5 Mg (3 Ml) Ud) 3 ml INH RQ4 [facility] Last Admin: 04/15/17 00:40 Dose: Not Given Aspirin (Ecotrin) 81 mg PO DAILY [facility] Last Admin: 04/15/17 09:30 Dose: 81 mg Carvedilol (Coreg) 6.25 mg PO BID [facility] Last Admin: 04/15/17 09:28 Dose: 6.25 mg Clopidogrel Bisulfate (Plavix) 75 mg PO DAILY [facility] Last Admin: 04/15/17 09:29 Dose: 75 mg Diphenhydramine HCl (Benadryl) 25 mg IVP Q4 PRN PRN Reason: Itching / Pruritus Last Admin: 04/15/17 09:36 Dose: 25 mg Epoetin Alec (Procrit) 10,000 unit IV TuThSa [facility] Last Admin: 04/13/17 17:39 Dose: 10,000 unit Famotidine (Pepcid) 20 mg PO DAILY [facility] Last Admin: 04/15/17 09:29 Dose: 20 mg Gabapentin (Neurontin) 100 mg PO HS [facility] Last Admin: 04/14/17 21:53 Dose: 100 mg Hydromorphone HCl (Dilaudid) 0.5 mg IVP Q3H PRN PRN Reason: Pain, moderate (4-7) Last Admin: 04/15/17 09:36 Dose: 0.5 mg Meropenem 500 mg/ Dextrose 100 mls @ 100 mls/hr IVPB Q12H [facility] Last Admin: 04/15/17 04:51 Dose: 100 mls/hr Insulin Glargine (Lantus) 10 unit SC HS [facility] Last Admin: 04/14/17 21:53 Dose: 10 units Insulin Human Regular (Novolin R) 0 unit SC ACHS [facility] PRN Reason: Protocol Last Admin: 04/15/17 08:30 Dose: 2 unit Vitamin B Complex/Vit C/Folic Acid (Nephro-Cony) 1 tab PO 0800 [facility] Last Admin: 04/15/17 09:31 Dose: 1 tab - Labs Labs: 04/14/17 11:29 04/14/17 11:29 PT 11.7 SECONDS (9.7-12.2) 03/13/17 08:31 INR 1.0 03/13/17 08:31 APTT 41 SECONDS (21-34) H 03/13/17 08:31 - Constitutional Appears: Non-toxic, No Acute Distress, Chronically Ill - Head Exam Head Exam: ATRAUMATIC, NORMAL INSPECTION - Eye Exam Eye Exam: EOMI, Normal appearance - Neck Exam Neck Exam: Normal Inspection. absent: Tenderness - Respiratory Exam Respiratory Exam: Clear to Ausculation Bilateral, NORMAL BREATHING PATTERN - Cardiovascular Exam Cardiovascular Exam: REGULAR RHYTHM, +S1 - GI/Abdominal Exam GI & Abdominal Exam: Soft. absent: Tenderness - Extremities Exam Extremities Exam: Calf Tenderness - Neurological Exam Neurological Exam: Awake, CN II-XII Intact - Psychiatric Exam Psychiatric exam: Depressed, Flat Affect - Skin Skin Exam: Dry, Warm Assessment and Plan (1) Type 1 diabetes mellitus with diabetic nephropathy Status: Acute (2) Gangrene of right foot Status: Acute (3) End stage renal disease Status: Acute (4) Fecal impaction Status: Acute (5) CHF (congestive heart failure) Status: Acute - Assessment and Plan (Free Text) Plan: dialysis TTS decrease UF goal recheck chemistries, iron stores try to decrease pain med doses monitor BP
--- NOTE | 2017-04-15 12:51 | CP.PCM.PN ---
Subjective - Date & Time of Evaluation Date of Evaluation: 04/15/17 Time of Evaluation: 11:00 - Subjective Subjective: Podiatry Progress Note- Dr. Ordonez 51 yo female pt seen at bedside this morning with attending Dr. Ordonez present for left heel ulceration. Pt seen sitting upright in bed, heel cushion is applied left foot, denies any pain or discomfort to the left foot. Denies f/n /v/c/sob/cp at this time. Objective - Vital Signs/Intake and Output Vital Signs (last 24 hours): Temp Pulse Resp BP Pulse Ox 98.5 F 96 H 20 140/74 99 04/15/17 07:53 04/15/17 07:53 04/15/17 07:53 04/15/17 07:53 04/15/17 07:53 Intake and Output: 04/15/17 04/15/17 06:59 18:59 Intake Total 450 340 Output Total 100 253 Balance 350 87 - Medications Medications: Current Medications Acetaminophen (Tylenol 325mg Tab) 650 mg PO Q8H [facility] Last Admin: 04/15/17 09:34 Dose: 650 mg Albuterol/Ipratropium (Duoneb 3 Mg/0.5 Mg (3 Ml) Ud) 3 ml INH RQ4 [facility] Last Admin: 04/15/17 00:40 Dose: Not Given Aspirin (Ecotrin) 81 mg PO DAILY [facility] Last Admin: 04/15/17 09:30 Dose: 81 mg Carvedilol (Coreg) 6.25 mg PO BID [facility] Last Admin: 04/15/17 09:28 Dose: 6.25 mg Clopidogrel Bisulfate (Plavix) 75 mg PO DAILY [facility] Last Admin: 04/15/17 09:29 Dose: 75 mg Diphenhydramine HCl (Benadryl) 25 mg IVP Q4 PRN PRN Reason: Itching / Pruritus Last Admin: 04/15/17 09:36 Dose: 25 mg Epoetin Alec (Procrit) 10,000 unit IV TuThSa [facility] Last Admin: 04/13/17 17:39 Dose: 10,000 unit Famotidine (Pepcid) 20 mg PO DAILY [facility] Last Admin: 04/15/17 09:29 Dose: 20 mg Gabapentin (Neurontin) 100 mg PO HS [facility] Last Admin: 04/14/17 21:53 Dose: 100 mg Hydromorphone HCl (Dilaudid) 0.5 mg IVP Q3H PRN PRN Reason: Pain, moderate (4-7) Last Admin: 04/15/17 09:36 Dose: 0.5 mg Meropenem 500 mg/ Dextrose 100 mls @ 100 mls/hr IVPB Q12H [facility] Last Admin: 04/15/17 04:51 Dose: 100 mls/hr Insulin Glargine (Lantus) 10 unit SC HS [facility] Last Admin: 04/14/17 21:53 Dose: 10 units Insulin Human Regular (Novolin R) 0 unit SC ACHS [facility] PRN Reason: Protocol Last Admin: 04/15/17 08:30 Dose: 2 unit Vitamin B Complex/Vit C/Folic Acid (Nephro-Cony) 1 tab PO 0800 [facility] Last Admin: 04/15/17 09:31 Dose: 1 tab - Labs Labs: 04/14/17 11:29 04/14/17 11:29 PT 11.7 SECONDS (9.7-12.2) 03/13/17 08:31 INR 1.0 03/13/17 08:31 APTT 41 SECONDS (21-34) H 03/13/17 08:31 - Constitutional Appears: Non-toxic, No Acute Distress - Extremities Exam Extremities Exam: absent: Calf Tenderness Additional comments: Left lower extremity exam: Vasc: DP &PT pules non-palpable. CFT > 3 seconds to all digits. Skin temperature is cool to cold from proximal to distal. Derm: unstageable pressure ulcer noted to the left heel measuring approximately 4 cm by 1 cm. No drainage noted, eschar present to medial aspect left hallux, duskiness noted to third digit circumferentially Neuro: Gross sensation is diminished Ortho: No tenderness on palpation to left heel - Neurological Exam Neurological Exam: Alert, Awake, Oriented x3 - Psychiatric Exam Psychiatric exam: Normal Affect, Normal Mood Assessment and Plan - Assessment and Plan (Free Text) Assessment: 51 year old female with unstageable ulceration of left heel 2/2 pressure Plan: Pt S&E at bedside with Dr. Ordonez present Chart, labs and vitals reviewed Advised patient that she must keep all pressure off the left heel, wedge pillow placed under leg, may wear heel cushion but foot is not to touch bed. Told patient she is allowed to dangle left foot off bed from time to time to help blood flow. No dressings required. Podiatry will monitor, prognosis guarded.
--- NOTE | 2017-04-15 16:31 | CP.PCM.PN ---
Subjective - Date & Time of Evaluation Date of Evaluation: 04/15/17 Time of Evaluation: 15:00 - Subjective Subjective: GENERAL SURGERY PROGRESS NOTE FOR DR. SANTIAGO Patient seen and examined at bedside. Patient states that she is eating well and tolerating her regular diet. She denies nausea or vomiting. Denies pain currently. Ileostomy bag with liquid stool and gas. Packing was removed and repacked. Objective - Vital Signs/Intake and Output Vital Signs (last 24 hours): Temp Pulse Resp BP Pulse Ox 98.5 F 96 H 20 140/74 99 04/15/17 07:53 04/15/17 07:53 04/15/17 07:53 04/15/17 07:53 04/15/17 07:53 Intake and Output: 04/15/17 04/15/17 06:59 18:59 Intake Total 450 340 Output Total 100 253 Balance 350 87 - Medications Medications: Current Medications Acetaminophen (Tylenol 325mg Tab) 650 mg PO Q8H [facility] Last Admin: 04/15/17 09:34 Dose: 650 mg Albuterol/Ipratropium (Duoneb 3 Mg/0.5 Mg (3 Ml) Ud) 3 ml INH RQ4 [facility] Last Admin: 04/15/17 15:56 Dose: Not Given Aspirin (Ecotrin) 81 mg PO DAILY [facility] Last Admin: 04/15/17 09:30 Dose: 81 mg Carvedilol (Coreg) 6.25 mg PO BID [facility] Last Admin: 04/15/17 09:28 Dose: 6.25 mg Clopidogrel Bisulfate (Plavix) 75 mg PO DAILY [facility] Last Admin: 04/15/17 09:29 Dose: 75 mg Diphenhydramine HCl (Benadryl) 25 mg IVP Q4 PRN PRN Reason: Itching / Pruritus Last Admin: 04/15/17 13:40 Dose: 25 mg Epoetin Alec (Procrit) 10,000 unit IV TuThSa [facility] Last Admin: 04/13/17 17:39 Dose: 10,000 unit Famotidine (Pepcid) 20 mg PO DAILY [facility] Last Admin: 04/15/17 09:29 Dose: 20 mg Gabapentin (Neurontin) 100 mg PO HS [facility] Last Admin: 04/14/17 21:53 Dose: 100 mg Heparin Sodium (Porcine) (Heparin) 5,000 units SC Q12 [facility] Hydromorphone HCl (Dilaudid) 0.5 mg IVP Q3H PRN PRN Reason: Pain, moderate (4-7) Last Admin: 04/15/17 13:40 Dose: 0.5 mg Meropenem 500 mg/ Dextrose 100 mls @ 100 mls/hr IVPB Q12H [facility] Stop: 04/15/17 17:01 Last Admin: 04/15/17 04:51 Dose: 100 mls/hr Meropenem 500 mg/ Sodium (Chloride) 100 mls @ 100 mls/hr IVPB Q12H [facility] Insulin Glargine (Lantus) 10 unit SC HS [facility] Last Admin: 04/14/17 21:53 Dose: 10 units Insulin Human Regular (Novolin R) 0 unit SC ACHS [facility] PRN Reason: Protocol Last Admin: 04/15/17 12:30 Dose: 2 unit Ondansetron HCl (Zofran Inj) 4 mg IVP Q4 PRN PRN Reason: Nausea/Vomiting Vitamin B Complex/Vit C/Folic Acid (Nephro-Cony) 1 tab PO 0800 [facility] Last Admin: 04/15/17 09:31 Dose: 1 tab - Labs Labs: 04/14/17 11:29 04/14/17 11:29 PT 11.7 SECONDS (9.7-12.2) 03/13/17 08:31 INR 1.0 03/13/17 08:31 APTT 41 SECONDS (21-34) H 03/13/17 08:31 - Constitutional Appears: Non-toxic, No Acute Distress - Head Exam Head Exam: ATRAUMATIC, NORMAL INSPECTION - Eye Exam Eye Exam: EOMI, Normal appearance - Respiratory Exam Respiratory Exam: NORMAL BREATHING PATTERN. absent: Respiratory Distress - Cardiovascular Exam Cardiovascular Exam: +S1, +S2 - GI/Abdominal Exam GI & Abdominal Exam: Soft. absent: Distended, Firm, Guarding, Rigid, Tenderness , Rebound Additional comments: Soft, mild tenderness bordering vertical surgical site Purulent drainage able to be expressed from superior portion of incision Packing removed and repacked Roel drain in place at left abdomen Brown liquid stool in ileostomy bag at right abdomen - Extremities Exam Additional comments: Right BKA dressing clean, dry, and intact Knee immobilizer in place - Neurological Exam Neurological Exam: Alert, Awake, Oriented x3 - Psychiatric Exam Psychiatric exam: Normal Affect, Normal Mood - Skin Skin Exam: Dry, Normal Color, Warm Assessment and Plan - Assessment and Plan (Free Text) Assessment: 51 year old female with PMHx of PVD, DM, HTN, ESRD previously on PD, now s/p subtotal colectomy with ileostomy POD#19, right BKA POD#11. - Mild leukocytosis, will recheck AM labs tomorrow - Tolerating renal dialysis/CCD diet - Encouraged PT, and IS use - Will continue to follow up drain output - Purulent drainage again expressed from superior portion of midline incision - Packing removed and repacked into superior portion of midline incision - On Merrem per ID - Discussed plan with Dr. Eduardo Chin PGY-3
[2017-04-15] MEDS ORDERED: Albuterol-Ipratrop 3 mg / 0.5 (3 ml) UD INH PRN (20:37)
[2017-04-15] MEDS: HYDROmorphone 1 mg/ml ISec IVP PRN (22:15)
[2017-04-15] MEDS: (Lantus) Insulin Glargine, Recombinant SC SCH (22:16)
[2017-04-16] MEDS: DiphenhydrAMINE 50 mg/ml Inj IVP PRN ×4 (02:13→19:09)
[2017-04-16] MEDS: HYDROmorphone 1 mg/ml ISec IVP PRN ×4 (02:13→19:07)
[2017-04-16] MEDS: Meropenem 500 MG in Sodium Chloride 0.9% 100 ML IVPB SCH ×2 (05:29→17:49)
[2017-04-16 08:21] LABS: HEMATOCRIT 28.9 % (34.0-47.0); MEAN CORPUSCULAR HEMOGLOBIN 31.6 pg (27.0-31.0); MEAN CORPUSCULAR HGB CONC 31.9 g/dL (33.0-37.0); MEAN PLATELET VOLUME 8.3 fL (7.2-11.7); RED CELL DISTRIBUTION WIDTH 18.1 % (11.5-14.5); WHITE BLOOD COUNT 12.8 K/uL (4.8-10.8)
[2017-04-16 08:25] LABS: MEAN CELL VOLUME 98.8 fL (81.0-99.0)
[2017-04-16] MEDS: (Novolin R) Insulin Human Regular 100 units/ml vial SC SCH ×4 (08:30→22:43)
[2017-04-16] MEDS: Multivitamin Vitamin B Complex (Nephro-Vite) Tab PO SCH (08:58)
[2017-04-16 09:08] LABS: POTASSIUM 5.4 mmol/L (3.6-5.2)
[2017-04-16 09:10] LABS: ALB/GLOB RATIO 1.1 (1.0-2.1); BILIRUBIN,TOTAL 0.7 mg/dL (0.2-1.3); TOTAL PROTEIN 6.8 g/dL (6.3-8.3)
[2017-04-16 09:11] LABS: CALCIUM 9.6 mg/dl (8.6-10.4); PHOSPHOROUS 4.7 mg/dL (2.5-4.5)
--- NOTE | 2017-04-16 09:33 | CP.PCM.PN ---
Subjective - Date & Time of Evaluation Date of Evaluation: 04/16/17 Time of Evaluation: 09:31 - Subjective Subjective: Surgery: Dr. Clark 51F seen and examined at bedside, resting comfortably. Patient states she is tolerating her diet well, denies nausea or vomiting. Patient complains of pain and tingling sensation in her amputated right lower extremity. Ileostomy bag was intact and had stool present. Dressing and packing were removed and replaced. Objective - Vital Signs/Intake and Output Vital Signs (last 24 hours): Temp Pulse Resp BP Pulse Ox 98.2 F 102 H 20 87/57 L 95 04/16/17 08:16 04/16/17 08:16 04/16/17 08:16 04/16/17 08:16 04/16/17 08:16 Intake and Output: 04/16/17 04/16/17 06:59 18:59 Intake Total 700 100 Output Total 510 200 Balance 190 -100 - Medications Medications: Current Medications Acetaminophen (Tylenol 325mg Tab) 650 mg PO Q8H [facility] Last Admin: 04/16/17 08:58 Dose: 650 mg Albuterol/Ipratropium (Duoneb 3 Mg/0.5 Mg (3 Ml) Ud) 3 ml INH RQ4 PRN PRN Reason: dyspnea Aspirin (Ecotrin) 81 mg PO DAILY [facility] Last Admin: 04/15/17 09:30 Dose: 81 mg Carvedilol (Coreg) 3.125 mg PO BID [facility] Clopidogrel Bisulfate (Plavix) 75 mg PO DAILY [facility] Last Admin: 04/15/17 09:29 Dose: 75 mg Diphenhydramine HCl (Benadryl) 25 mg IVP Q4 PRN PRN Reason: Itching / Pruritus Last Admin: 04/16/17 06:30 Dose: 25 mg Epoetin Alec (Procrit) 10,000 unit IV TuThSa [facility] Last Admin: 04/13/17 17:39 Dose: 10,000 unit Famotidine (Pepcid) 20 mg PO DAILY [facility] Last Admin: 04/15/17 09:29 Dose: 20 mg Heparin Sodium (Porcine) (Heparin) 5,000 units SC Q12 [facility] Last Admin: 04/15/17 22:16 Dose: 5,000 units Hydromorphone HCl (Dilaudid) 1 mg IVP Q4 PRN PRN Reason: Pain, severe (8-10) Last Admin: 04/16/17 06:27 Dose: 1 mg Meropenem 500 mg/ Sodium (Chloride) 100 mls @ 100 mls/hr IVPB Q12H [facility] Last Admin: 04/16/17 05:29 Dose: 100 mls/hr Insulin Glargine (Lantus) 10 unit SC HS [facility] Last Admin: 04/15/17 22:16 Dose: 10 units Insulin Human Regular (Novolin R) 0 unit SC ACHS [facility] PRN Reason: Protocol Last Admin: 04/16/17 08:30 Dose: 1 unit Ondansetron HCl (Zofran Inj) 4 mg IVP Q4 PRN PRN Reason: Nausea/Vomiting Saccharomyces Boulardii (Florastor) 250 mg PO TID [facility] Vitamin B Complex/Vit C/Folic Acid (Nephro-Cony) 1 tab PO 0800 [facility] Last Admin: 04/16/17 08:58 Dose: 1 tab - Labs Labs: 04/16/17 08:09 04/16/17 08:09 PT 11.8 SECONDS (9.7-12.2) 04/15/17 17:09 INR 1.0 04/15/17 17:09 APTT 34 SECONDS (21-34) 04/15/17 17:09 - Constitutional Appears: Non-toxic, No Acute Distress - Eye Exam Eye Exam: EOMI - ENT Exam ENT Exam: Mucous Membranes Moist - Neck Exam Neck Exam: Full ROM - Respiratory Exam Respiratory Exam: NORMAL BREATHING PATTERN. absent: Accessory Muscle Use, Respiratory Distress - GI/Abdominal Exam GI & Abdominal Exam: Soft. absent: Tenderness Additional comments: Midline incision, clean and dry, no pus, no erythema stoma pink and patent w/ stool out put, well formed Roel present R side, serous output - Neurological Exam Neurological Exam: Alert, Awake, Oriented x3 - Psychiatric Exam Psychiatric exam: Normal Affect, Normal Mood Assessment and Plan - Assessment and Plan (Free Text) Assessment: 51F s/p subtotal colectomy with ileostomy POD #20 and right BKA POD#12. -Phantom Limb Pain, will start on gabapentin -Leukocytosis, abx per ID -Abd incision looks much better, every other staple was removed will change packing PRN -Packing was removed and replaced into superior portion of midline incision -Encouraged PT and IS use -Discussed plan with Dr. Eduardo Dejesus PGY3
[2017-04-16] MEDS: Saccharomyces Boulardi 250 mg Cap PO SCH ×3 (10:36→17:58)
[2017-04-16] MEDS: Epoetin Alfa 10,000 unit/ml Dialysis IV SCH (10:45)
--- NOTE | 2017-04-16 10:57 | CP.PCM.PN ---
Subjective - Date & Time of Evaluation Date of Evaluation: 04/16/17 Time of Evaluation: 10:55 - Subjective Subjective: seen on hd estimated uf 1L low bp in 70s systolic pt denies any nausea vomiting chest pain palpitations headaches rash fevers +chills +rt limb pain ileostomy bag Objective - Vital Signs/Intake and Output Vital Signs (last 24 hours): Temp Pulse Resp BP Pulse Ox 97.6 F 107 H 16 91/51 L 95 04/16/17 09:50 04/16/17 09:50 04/16/17 09:50 04/16/17 09:50 04/16/17 08:16 Intake and Output: 04/16/17 04/16/17 06:59 18:59 Intake Total 700 100 Output Total 510 200 Balance 190 -100 - Medications Medications: Current Medications Acetaminophen (Tylenol 325mg Tab) 650 mg PO Q8H [facility] Last Admin: 04/16/17 08:58 Dose: 650 mg Albumin Human (Albumin Human 25% (12.5 Gm/50 Ml)) 12.5 gm IV ONCE ONE Stop: 04/16/17 11:01 Last Admin: 04/16/17 10:46 Dose: 12.5 gm Albuterol/Ipratropium (Duoneb 3 Mg/0.5 Mg (3 Ml) Ud) 3 ml INH RQ4 PRN PRN Reason: dyspnea Aspirin (Ecotrin) 81 mg PO DAILY [facility] Last Admin: 04/16/17 10:35 Dose: Not Given Carvedilol (Coreg) 3.125 mg PO BID [facility] Last Admin: 04/16/17 10:35 Dose: Not Given Clopidogrel Bisulfate (Plavix) 75 mg PO DAILY [facility] Last Admin: 04/16/17 10:44 Dose: Not Given Diphenhydramine HCl (Benadryl) 25 mg IVP Q4 PRN PRN Reason: Itching / Pruritus Last Admin: 04/16/17 06:30 Dose: 25 mg Epoetin Alec (Procrit) 10,000 unit IV TuThSa [facility] Last Admin: 04/16/17 10:45 Dose: 10,000 unit Famotidine (Pepcid) 20 mg PO DAILY [facility] Last Admin: 04/16/17 10:42 Dose: Not Given Gabapentin (Neurontin) 250 mg PO TID [facility] Heparin Sodium (Porcine) (Heparin) 5,000 units SC Q12 [facility] Last Admin: 04/16/17 10:36 Dose: Not Given Hydromorphone HCl (Dilaudid) 1 mg IVP Q4 PRN PRN Reason: Pain, severe (8-10) Last Admin: 04/16/17 06:27 Dose: 1 mg Meropenem 500 mg/ Sodium (Chloride) 100 mls @ 100 mls/hr IVPB Q12H [facility] Last Admin: 04/16/17 05:29 Dose: 100 mls/hr Insulin Glargine (Lantus) 10 unit SC HS [facility] Last Admin: 04/15/17 22:16 Dose: 10 units Insulin Human Regular (Novolin R) 0 unit SC ACHS [facility] PRN Reason: Protocol Last Admin: 04/16/17 08:30 Dose: 1 unit Ondansetron HCl (Zofran Inj) 4 mg IVP Q4 PRN PRN Reason: Nausea/Vomiting Saccharomyces Boulardii (Florastor) 250 mg PO TID [facility] Last Admin: 04/16/17 10:36 Dose: Not Given Vitamin B Complex/Vit C/Folic Acid (Nephro-Cony) 1 tab PO 0800 [facility] Last Admin: 04/16/17 08:58 Dose: 1 tab - Labs Labs: 04/16/17 08:09 04/16/17 08:09 PT 11.8 SECONDS (9.7-12.2) 04/15/17 17:09 INR 1.0 04/15/17 17:09 APTT 34 SECONDS (21-34) 04/15/17 17:09 - Constitutional Appears: Non-toxic, No Acute Distress, Chronically Ill - Head Exam Head Exam: NORMAL INSPECTION - Eye Exam Eye Exam: Normal appearance - ENT Exam ENT Exam: Mucous Membranes Moist, Normal Exam - Neck Exam Neck Exam: Normal Inspection - Respiratory Exam Respiratory Exam: Decreased Breath Sounds, NORMAL BREATHING PATTERN - Cardiovascular Exam Cardiovascular Exam: REGULAR RHYTHM, RRR - GI/Abdominal Exam GI & Abdominal Exam: Distended (ileostomy bag), Soft - Extremities Exam Extremities Exam: Normal Inspection (rle amputation) Assessment and Plan (1) Gangrene of right foot Status: Acute (2) Anemia Status: Acute (3) Diabetes mellitus Status: Acute (4) ESRD on peritoneal dialysis Status: Acute (5) Hyperkalemia Status: Acute (6) Hypertension Status: Acute - Assessment and Plan (Free Text) Assessment: hd tts, lower uf goal 2K bath encourage protein intake pain control rehab
[2017-04-16] MEDS ORDERED: Albumin Human 25% (12.5 gm/50 ml) IV ONE (11:00)
--- NOTE | 2017-04-16 14:31 | RAD ---
PROCEDURE: Right Thumb radiographs. HISTORY: right thumb pain sp fall 2 weeks ago COMPARISON: None. TECHNIQUE: AP radiograph of the right hand, as well as spot oblique and lateral images of thumb were obtained. FINDINGS: RIGHT THUMB: On a single oblique/lateral view of the right thumb distal phalanx, the sub cortical volar trabecular markings are slightly prominent. Appearance is indeterminate. A trabecular microfractures not excluded. No displaced cortical fractures noted. Appearance could be simply top-normal variant prominent trabecular markings here. Extensive arterial vascular calcifications throughout the distal forearm wrist throughout visualized hand noted. No definitive cortical fracture or lytic lesion noted. JOINTS: Normal. SOFT TISSUES: Normal. OTHER FINDINGS: None. IMPRESSION: No definitive cortical or displaced fracture noted. The appearance of the 1st distal phalanx -volar subcortical trabecular markings are borderline prominent - top normal variant versus tiny trabecular nondisplaced microfracture here differential considerations. Correlation with point tenderness recommended
--- NOTE | 2017-04-16 19:39 | CP.PCM.PN ---
Subjective - Date & Time of Evaluation Date of Evaluation: 04/15/17 Time of Evaluation: 19:39 - Subjective Subjective: Spoke to the patient in detail. Patient is having some flapping tremor. Complaining of pain, but tolerable. She is very concerned about the left foot, started crying. feels depressed. Patient will need physical therapy. Currently awaiti For rehabilitation. Dialysis in the morning Objective - Vital Signs/Intake and Output Vital Signs (last 24 hours): Temp Pulse Resp BP Pulse Ox 98.5 F 110 H 20 127/63 99 04/16/17 16:00 04/16/17 16:00 04/16/17 16:00 04/16/17 16:00 04/16/17 16:00 Intake and Output: 04/16/17 04/17/17 18:59 06:59 Intake Total 350 Output Total 200 Balance 150 - Medications Medications: Current Medications Acetaminophen (Tylenol 325mg Tab) 650 mg PO Q8H [facility] Last Admin: 04/16/17 17:45 Dose: Not Given Albuterol/Ipratropium (Duoneb 3 Mg/0.5 Mg (3 Ml) Ud) 3 ml INH RQ4 PRN PRN Reason: dyspnea Aspirin (Ecotrin) 81 mg PO DAILY [facility] Last Admin: 04/16/17 15:00 Dose: 81 mg Carvedilol (Coreg) 3.125 mg PO BID [facility] Last Admin: 04/16/17 17:44 Dose: 3.125 mg Clopidogrel Bisulfate (Plavix) 75 mg PO DAILY [facility] Last Admin: 04/16/17 15:07 Dose: 75 mg Diphenhydramine HCl (Benadryl) 25 mg IVP Q4 PRN PRN Reason: Itching / Pruritus Last Admin: 04/16/17 19:09 Dose: 25 mg Epoetin Alec (Procrit) 10,000 unit IV TuThSa [facility] Last Admin: 04/16/17 10:45 Dose: 10,000 unit Famotidine (Pepcid) 20 mg PO DAILY [facility] Last Admin: 04/16/17 15:07 Dose: 20 mg Gabapentin (Neurontin) 100 mg PO QPM [facility] Last Admin: 04/16/17 17:47 Dose: 100 mg Heparin Sodium (Porcine) (Heparin) 5,000 units SC Q12 [facility] Last Admin: 04/16/17 10:36 Dose: Not Given Hydromorphone HCl (Dilaudid) 1 mg IVP Q4 PRN PRN Reason: Pain, severe (8-10) Last Admin: 04/16/17 19:07 Dose: 1 mg Meropenem 500 mg/ Sodium (Chloride) 100 mls @ 100 mls/hr IVPB Q12H [facility] Last Admin: 04/16/17 17:49 Dose: 100 mls/hr Insulin Glargine (Lantus) 10 unit SC HS [facility] Last Admin: 04/15/17 22:16 Dose: 10 units Insulin Human Regular (Novolin R) 0 unit SC ACHS [facility] PRN Reason: Protocol Last Admin: 04/16/17 16:30 Dose: 1 unit Ondansetron HCl (Zofran Inj) 4 mg IVP Q4 PRN PRN Reason: Nausea/Vomiting Saccharomyces Boulardii (Florastor) 250 mg PO TID [facility] Last Admin: 04/16/17 17:58 Dose: 250 mg Vitamin B Complex/Vit C/Folic Acid (Nephro-Cony) 1 tab PO 0800 [facility] Last Admin: 04/16/17 08:58 Dose: 1 tab - Labs Labs: 04/16/17 08:09 04/16/17 08:09 PT 11.8 SECONDS (9.7-12.2) 04/15/17 17:09 INR 1.0 04/15/17 17:09 APTT 34 SECONDS (21-34) 04/15/17 17:09
[2017-04-16] MEDS: (Lantus) Insulin Glargine, Recombinant SC SCH (22:41)
[2017-04-17] MEDS: DiphenhydrAMINE 50 mg/ml Inj IVP PRN ×5 (00:25→21:27)
[2017-04-17] MEDS: HYDROmorphone 1 mg/ml ISec IVP PRN ×5 (00:26→21:29)
[2017-04-17] MEDS: Meropenem 500 MG in Sodium Chloride 0.9% 100 ML IVPB SCH ×2 (04:34→17:00)
[2017-04-17] MEDS: (Novolin R) Insulin Human Regular 100 units/ml vial SC SCH ×4 (08:30→21:32)
[2017-04-17] MEDS: Multivitamin Vitamin B Complex (Nephro-Vite) Tab PO SCH (08:54)
[2017-04-17] MEDS ORDERED: Oxycodone/Acetaminophen 5/325 mg Tab PO PRN (09:55)
[2017-04-17] MEDS: Saccharomyces Boulardi 250 mg Cap PO SCH ×3 (10:08→18:00)
--- NOTE | 2017-04-17 11:57 | CP.PCM.PN ---
Subjective - Date & Time of Evaluation Date of Evaluation: 04/17/17 Time of Evaluation: 11:00 - Subjective Subjective: Podiatry Progress Note- Dr. Ordonez 51 yo female pt seen at bedside this morning for f/u left heel wound. Pt is seen resting in bed at time of visit with offloading boots applied to left foot and right lower ext stump and wedge cushion under both legs with left foot dangling. Pt does complain if some tenderness to the left heel, says she is concerned about what will happen to that foot. Denies f/n/v/c/sob/cp at this time, tolerating diet. Offers no other complaints. Objective - Vital Signs/Intake and Output Vital Signs (last 24 hours): Temp Pulse Resp BP Pulse Ox 98.2 F 97 H 20 126/66 98 04/17/17 08:09 04/17/17 10:45 04/17/17 08:09 04/17/17 08:09 04/17/17 10:45 Intake and Output: 04/17/17 04/17/17 06:59 18:59 Intake Total 220 Output Total 755 Balance -535 - Medications Medications: Current Medications Acetaminophen (Tylenol 325mg Tab) 650 mg PO Q8H [facility] Last Admin: 04/17/17 08:54 Dose: 650 mg Albuterol/Ipratropium (Duoneb 3 Mg/0.5 Mg (3 Ml) Ud) 3 ml INH RQ4 PRN PRN Reason: dyspnea Aspirin (Ecotrin) 81 mg PO DAILY [facility] Last Admin: 04/17/17 10:09 Dose: 81 mg Carvedilol (Coreg) 3.125 mg PO BID [facility] Last Admin: 04/17/17 10:09 Dose: 3.125 mg Clopidogrel Bisulfate (Plavix) 75 mg PO DAILY [facility] Last Admin: 04/17/17 10:08 Dose: 75 mg Diphenhydramine HCl (Benadryl) 25 mg IVP Q4 PRN PRN Reason: Itching / Pruritus Last Admin: 04/17/17 11:28 Dose: 25 mg Epoetin Alec (Procrit) 10,000 unit IV TuThSa [facility] Last Admin: 04/16/17 10:45 Dose: 10,000 unit Famotidine (Pepcid) 20 mg PO DAILY [facility] Last Admin: 04/17/17 10:08 Dose: 20 mg Gabapentin (Neurontin) 100 mg PO QPM [facility] Last Admin: 04/16/17 17:47 Dose: 100 mg Heparin Sodium (Porcine) (Heparin) 5,000 units SC Q12 [facility] Last Admin: 04/17/17 10:09 Dose: 5,000 units Hydromorphone HCl (Dilaudid) 1 mg IVP Q5H PRN PRN Reason: Pain, severe (8-10) Last Admin: 04/17/17 11:29 Dose: 1 mg Meropenem 500 mg/ Sodium (Chloride) 100 mls @ 100 mls/hr IVPB Q12H [facility] Last Admin: 04/17/17 04:34 Dose: 100 mls/hr Insulin Glargine (Lantus) 10 unit SC HS [facility] Last Admin: 04/16/17 22:41 Dose: 10 units Insulin Human Regular (Novolin R) 0 unit SC ACHS [facility] PRN Reason: Protocol Last Admin: 04/17/17 08:30 Dose: 2 unit Ondansetron HCl (Zofran Inj) 4 mg IVP Q4 PRN PRN Reason: Nausea/Vomiting Oxycodone/Acetaminophen (Percocet 5/325 Mg Tab) 1 tab PO Q6H PRN PRN Reason: Pain, moderate (4-7) Stop: 04/20/17 09:56 Saccharomyces Boulardii (Florastor) 250 mg PO TID [facility] Last Admin: 04/17/17 10:08 Dose: 250 mg Vitamin B Complex/Vit C/Folic Acid (Nephro-Cony) 1 tab PO 0800 [facility] Last Admin: 04/17/17 08:54 Dose: 1 tab - Labs Labs: 04/16/17 08:09 04/16/17 08:09 PT 11.8 SECONDS (9.7-12.2) 04/15/17 17:09 INR 1.0 04/15/17 17:09 APTT 34 SECONDS (21-34) 04/15/17 17:09 - Constitutional Appears: Non-toxic, No Acute Distress - Extremities Exam Additional comments: Left lower extremity exam: Vasc: DP &PT pules are non-palpable, CFT > 4 seconds to all digits, skin temperature runs cool to cold from proximal to distal, no pedal edema Derm: unstageable pressure ulceration noted to the left heel measuring approximately 4 cm by 1 cm. No drainage noted, eschar present to medial aspect left hallux, duskiness noted to third digit circumferentially Neuro: gross pedal sensation is diminished Ortho: + tenderness to palp heel - Neurological Exam Neurological Exam: Alert, Awake, Oriented x3 - Psychiatric Exam Psychiatric exam: Normal Affect, Normal Mood Assessment and Plan - Assessment and Plan (Free Text) Assessment: 51 year old female with 1) unstageable ulceration of left heel 2/2 pressure, 2) ischemic changes to left hallux and left 3rd digit 2/2 PAD Plan: Pt S&E at bedside Plan discussed with attending Dr. Ordonez Chart, labs, vitals reviewed Left foot appears stable at this time however prognosis for limb salvage is guarded. Addressed all questions and concerns with patient. Again reminded pt to wear offloading boot and use wedge pillow while in bed, foot is not to touch the bed She is allowed to intermittently dangle the left lower ext off bed to assist flow No dressings required. Podiatry will monitor
--- NOTE | 2017-04-17 13:14 | CP.PCM.PN ---
Subjective - Date & Time of Evaluation Date of Evaluation: 04/17/17 Time of Evaluation: 13:11 - Subjective Subjective: stable dialysis 04/16- UF 1000ml BP controlled- BP generally lower Na level stabilizing Hg improving Wounds healing as per surgery; pains better controlled Would recommend AV access; pt thinking of moving out of state soon though Objective - Vital Signs/Intake and Output Vital Signs (last 24 hours): Temp Pulse Resp BP Pulse Ox 98.2 F 97 H 20 126/66 98 04/17/17 08:09 04/17/17 10:45 04/17/17 08:09 04/17/17 08:09 04/17/17 10:45 Intake and Output: 04/17/17 04/17/17 06:59 18:59 Intake Total 220 Output Total 755 Balance -535 - Medications Medications: Current Medications Acetaminophen (Tylenol 325mg Tab) 650 mg PO Q8H [facility] Last Admin: 04/17/17 08:54 Dose: 650 mg Albuterol/Ipratropium (Duoneb 3 Mg/0.5 Mg (3 Ml) Ud) 3 ml INH RQ4 PRN PRN Reason: dyspnea Aspirin (Ecotrin) 81 mg PO DAILY [facility] Last Admin: 04/17/17 10:09 Dose: 81 mg Carvedilol (Coreg) 3.125 mg PO BID [facility] Last Admin: 04/17/17 10:09 Dose: 3.125 mg Clopidogrel Bisulfate (Plavix) 75 mg PO DAILY [facility] Last Admin: 04/17/17 10:08 Dose: 75 mg Diphenhydramine HCl (Benadryl) 25 mg IVP Q4 PRN PRN Reason: Itching / Pruritus Last Admin: 04/17/17 11:28 Dose: 25 mg Epoetin Alec (Procrit) 10,000 unit IV TuThSa [facility] Last Admin: 04/16/17 10:45 Dose: 10,000 unit Famotidine (Pepcid) 20 mg PO DAILY [facility] Last Admin: 04/17/17 10:08 Dose: 20 mg Gabapentin (Neurontin) 100 mg PO QPM [facility] Last Admin: 04/16/17 17:47 Dose: 100 mg Heparin Sodium (Porcine) (Heparin) 5,000 units SC Q12 [facility] Last Admin: 04/17/17 10:09 Dose: 5,000 units Hydromorphone HCl (Dilaudid) 1 mg IVP Q5H PRN PRN Reason: Pain, severe (8-10) Last Admin: 04/17/17 11:29 Dose: 1 mg Meropenem 500 mg/ Sodium (Chloride) 100 mls @ 100 mls/hr IVPB Q12H [facility] Last Admin: 04/17/17 04:34 Dose: 100 mls/hr Insulin Glargine (Lantus) 10 unit SC HS [facility] Last Admin: 04/16/17 22:41 Dose: 10 units Insulin Human Regular (Novolin R) 0 unit SC ACHS [facility] PRN Reason: Protocol Last Admin: 04/17/17 12:29 Dose: 1 unit Ondansetron HCl (Zofran Inj) 4 mg IVP Q4 PRN PRN Reason: Nausea/Vomiting Oxycodone/Acetaminophen (Percocet 5/325 Mg Tab) 1 tab PO Q6H PRN PRN Reason: Pain, moderate (4-7) Stop: 04/20/17 09:56 Saccharomyces Boulardii (Florastor) 250 mg PO TID [facility] Last Admin: 04/17/17 10:08 Dose: 250 mg Vitamin B Complex/Vit C/Folic Acid (Nephro-Cony) 1 tab PO 0800 [facility] Last Admin: 04/17/17 08:54 Dose: 1 tab - Labs Labs: 04/16/17 08:09 04/16/17 08:09 PT 11.8 SECONDS (9.7-12.2) 04/15/17 17:09 INR 1.0 04/15/17 17:09 APTT 34 SECONDS (21-34) 04/15/17 17:09 - Constitutional Appears: No Acute Distress, Chronically Ill - Head Exam Head Exam: ATRAUMATIC, NORMAL INSPECTION - Eye Exam Eye Exam: EOMI, Normal appearance - Neck Exam Neck Exam: Normal Inspection. absent: Tenderness - Respiratory Exam Respiratory Exam: Clear to Ausculation Bilateral, NORMAL BREATHING PATTERN - Cardiovascular Exam Cardiovascular Exam: REGULAR RHYTHM, +S1 - GI/Abdominal Exam GI & Abdominal Exam: Soft. absent: Tenderness - Extremities Exam Extremities Exam: Normal Inspection. absent: Tenderness - Neurological Exam Neurological Exam: Alert, CN II-XII Intact - Skin Skin Exam: Dry, Warm Assessment and Plan (1) Type 1 diabetes mellitus with diabetic nephropathy Status: Acute (2) Gangrene of right foot Status: Acute (3) End stage renal disease Status: Acute (4) Fecal impaction Status: Acute (5) CHF (congestive heart failure) Status: Acute - Assessment and Plan (Free Text) Plan: Same meds Dialysis TTS consider AV access
--- NOTE | 2017-04-17 14:37 | CP.PCM.PN ---
Subjective - Date & Time of Evaluation Date of Evaluation: 04/17/17 Time of Evaluation: 07:00 - Subjective Subjective: GENERAL SURGERY PROGRESS NOTE FOR DR. SANTIAGO Patient seen and examined at bedside. Patient states that she is eating well and tolerating her regular diet. She denies nausea or vomiting. She reports some pain from right stump but states that it is better with the Gabapentin. She also has left heel pain. Left heel is elevated and hanging off the wedge. Ileostomy bag with liquid stool and gas. Packing was removed and repacked. Patient had dialysis yesterday. Objective - Vital Signs/Intake and Output Vital Signs (last 24 hours): Temp Pulse Resp BP Pulse Ox 98.2 F 97 H 20 126/66 98 04/17/17 08:09 04/17/17 10:45 04/17/17 08:09 04/17/17 08:09 04/17/17 10:45 Intake and Output: 04/17/17 04/17/17 06:59 18:59 Intake Total 220 Output Total 755 Balance -535 - Medications Medications: Current Medications Acetaminophen (Tylenol 325mg Tab) 650 mg PO Q8H [facility] Last Admin: 04/17/17 08:54 Dose: 650 mg Albuterol/Ipratropium (Duoneb 3 Mg/0.5 Mg (3 Ml) Ud) 3 ml INH RQ4 PRN PRN Reason: dyspnea Aspirin (Ecotrin) 81 mg PO DAILY [facility] Last Admin: 04/17/17 10:09 Dose: 81 mg Carvedilol (Coreg) 3.125 mg PO BID [facility] Last Admin: 04/17/17 10:09 Dose: 3.125 mg Clopidogrel Bisulfate (Plavix) 75 mg PO DAILY [facility] Last Admin: 04/17/17 10:08 Dose: 75 mg Diphenhydramine HCl (Benadryl) 25 mg IVP Q4 PRN PRN Reason: Itching / Pruritus Last Admin: 04/17/17 11:28 Dose: 25 mg Epoetin Alec (Procrit) 10,000 unit IV TuThSa [facility] Last Admin: 04/16/17 10:45 Dose: 10,000 unit Famotidine (Pepcid) 20 mg PO DAILY [facility] Last Admin: 04/17/17 10:08 Dose: 20 mg Gabapentin (Neurontin) 100 mg PO QPM [facility] Last Admin: 04/16/17 17:47 Dose: 100 mg Heparin Sodium (Porcine) (Heparin) 5,000 units SC Q12 [facility] Last Admin: 04/17/17 10:09 Dose: 5,000 units Hydromorphone HCl (Dilaudid) 1 mg IVP Q5H PRN PRN Reason: Pain, severe (8-10) Last Admin: 04/17/17 11:29 Dose: 1 mg Meropenem 500 mg/ Sodium (Chloride) 100 mls @ 100 mls/hr IVPB Q12H [facility] Last Admin: 04/17/17 04:34 Dose: 100 mls/hr Insulin Glargine (Lantus) 10 unit SC HS [facility] Last Admin: 04/16/17 22:41 Dose: 10 units Insulin Human Regular (Novolin R) 0 unit SC ACHS [facility] PRN Reason: Protocol Last Admin: 04/17/17 12:29 Dose: 1 unit Ondansetron HCl (Zofran Inj) 4 mg IVP Q4 PRN PRN Reason: Nausea/Vomiting Oxycodone/Acetaminophen (Percocet 5/325 Mg Tab) 1 tab PO Q6H PRN PRN Reason: Pain, moderate (4-7) Stop: 04/20/17 09:56 Saccharomyces Boulardii (Florastor) 250 mg PO TID [facility] Last Admin: 04/17/17 10:08 Dose: 250 mg Vitamin B Complex/Vit C/Folic Acid (Nephro-Cony) 1 tab PO 0800 [facility] Last Admin: 04/17/17 08:54 Dose: 1 tab - Labs Labs: 04/16/17 08:09 04/16/17 08:09 PT 11.8 SECONDS (9.7-12.2) 04/15/17 17:09 INR 1.0 04/15/17 17:09 APTT 34 SECONDS (21-34) 04/15/17 17:09 - Constitutional Appears: Non-toxic, No Acute Distress - Head Exam Head Exam: ATRAUMATIC, NORMAL INSPECTION - Eye Exam Eye Exam: EOMI, Normal appearance - Respiratory Exam Respiratory Exam: NORMAL BREATHING PATTERN. absent: Respiratory Distress - Cardiovascular Exam Cardiovascular Exam: Tachycardia, +S1, +S2 - GI/Abdominal Exam GI & Abdominal Exam: Soft. absent: Distended, Firm, Guarding, Rigid, Rebound Additional comments: Small amount purulent drainage able to be expressed from superior portion of incision Packing removed and repacked Few reyes removed Roel drain in place at left abdomen Brown liquid stool in ileostomy bag at right abdomen - Neurological Exam Neurological Exam: Alert, Awake, Oriented x3 - Psychiatric Exam Psychiatric exam: Normal Affect, Normal Mood - Skin Skin Exam: Dry, Normal Color, Warm Assessment and Plan - Assessment and Plan (Free Text) Assessment: 51 year old female with PMHx of PVD, DM, HTN, ESRD previously on PD, now s/p subtotal colectomy with ileostomy POD#21, right BKA POD#13 - Phantom limb pain, improved on Gabapentin - Podiatry following for left heel pressure ulcer - Tolerating renal dialysis/CCD diet - Encouraged PT, and IS use - Will continue to follow up drain output - Small amount purulent drainage again expressed from superior portion of midline incision - Packing removed and repacked into superior portion of midline incision - On Merrem per ID - Wound cx from incision grew: Klebsiella oxytoca & citrobacter diversus - Per Dr. Macdonald - recommend AV access. Will order vein mapping - Discussed plan with Dr. Eduardo Chin PGY-3
[2017-04-17] MEDS: (Lantus) Insulin Glargine, Recombinant SC SCH (21:28)
--- NOTE | 2017-04-17 22:02 | CP.PCM.PN ---
Subjective - Date & Time of Evaluation Date of Evaluation: 04/17/17 Time of Evaluation: 21:59 - Subjective Subjective: pt having watery stools pain better eating ok blood sugar 168 partially digested food noted in bag pt is awaiting for rehab getting hd Vital Signs - 24 hr 04/17/17 04/17/17 04/17/17 00:00 08:09 10:45 Temperature 98.4 F 98.2 F Pulse Rate 104 H 97 H 97 H Respiratory 20 20 Rate Blood Pressure 143/73 126/66 O2 Sat by Pulse 100 96 98 Oximetry 04/17/17 15:00 Temperature 98.4 F Pulse Rate 97 H Respiratory 20 Rate Blood Pressure 143/88 O2 Sat by Pulse 98 Oximetry diabetes with complications pain meds constipation with colitis s/p colectomy for rehab pending rehab placement Objective - Vital Signs/Intake and Output Vital Signs (last 24 hours): Temp Pulse Resp BP Pulse Ox 98.4 F 97 H 20 143/88 98 04/17/17 15:00 04/17/17 15:00 04/17/17 15:00 04/17/17 15:00 04/17/17 15:00 Intake and Output: 04/17/17 04/18/17 18:59 06:59 Intake Total 300 Output Total 200 Balance 100 - Medications Medications: Current Medications Acetaminophen (Tylenol 325mg Tab) 650 mg PO Q8H [facility] Last Admin: 04/17/17 16:45 Dose: Not Given Albuterol/Ipratropium (Duoneb 3 Mg/0.5 Mg (3 Ml) Ud) 3 ml INH RQ4 PRN PRN Reason: dyspnea Aspirin (Ecotrin) 81 mg PO DAILY [facility] Last Admin: 04/17/17 10:09 Dose: 81 mg Carvedilol (Coreg) 3.125 mg PO BID [facility] Last Admin: 04/17/17 18:00 Dose: 3.125 mg Clopidogrel Bisulfate (Plavix) 75 mg PO DAILY [facility] Last Admin: 04/17/17 10:08 Dose: 75 mg Diphenhydramine HCl (Benadryl) 25 mg IVP Q4 PRN PRN Reason: Itching / Pruritus Last Admin: 04/17/17 21:27 Dose: 25 mg Epoetin Alec (Procrit) 10,000 unit IV TuThSa [facility] Last Admin: 04/16/17 10:45 Dose: 10,000 unit Famotidine (Pepcid) 20 mg PO DAILY [facility] Last Admin: 04/17/17 10:08 Dose: 20 mg Gabapentin (Neurontin) 100 mg PO QPM [facility] Last Admin: 04/17/17 18:00 Dose: 100 mg Heparin Sodium (Porcine) (Heparin) 5,000 units SC Q12 [facility] Last Admin: 04/17/17 21:27 Dose: 5,000 units Hydromorphone HCl (Dilaudid) 1 mg IVP Q5H PRN PRN Reason: Pain, severe (8-10) Last Admin: 04/17/17 21:29 Dose: 1 mg Meropenem 500 mg/ Sodium (Chloride) 100 mls @ 100 mls/hr IVPB Q12H [facility] Last Admin: 04/17/17 17:00 Dose: 100 mls/hr Insulin Glargine (Lantus) 10 unit SC HS [facility] Last Admin: 04/17/17 21:28 Dose: 10 units Insulin Human Regular (Novolin R) 0 unit SC ACHS [facility] PRN Reason: Protocol Last Admin: 04/17/17 21:32 Dose: Not Given Ondansetron HCl (Zofran Inj) 4 mg IVP Q4 PRN PRN Reason: Nausea/Vomiting Oxycodone/Acetaminophen (Percocet 5/325 Mg Tab) 1 tab PO Q6H PRN PRN Reason: Pain, moderate (4-7) Stop: 04/20/17 09:56 Last Admin: 04/17/17 15:06 Dose: 1 tab Saccharomyces Boulardii (Florastor) 250 mg PO TID [facility] Last Admin: 04/17/17 18:00 Dose: 250 mg Vitamin B Complex/Vit C/Folic Acid (Nephro-Cony) 1 tab PO 0800 [facility] Last Admin: 04/17/17 08:54 Dose: 1 tab - Labs Labs: 04/16/17 08:09 04/16/17 08:09 PT 11.8 SECONDS (9.7-12.2) 04/15/17 17:09 INR 1.0 04/15/17 17:09 APTT 34 SECONDS (21-34) 04/15/17 17:09
[2017-04-18] MEDS: Meropenem 500 MG in Sodium Chloride 0.9% 100 ML IVPB SCH ×2 (05:32→17:44)
[2017-04-18] MEDS: HYDROmorphone 1 mg/ml ISec IVP PRN ×4 (05:33→22:29)
[2017-04-18] MEDS: DiphenhydrAMINE 50 mg/ml Inj IVP PRN ×4 (05:33→22:31)
[2017-04-18 07:13] LABS: BASO # 0.1 K/uL (0.0-0.2); BASO % 0.8 % (0.0-2.0); EOS # 0.3 K/uL (0.0-0.7); EOS % 2.9 % (0.0-4.0); HEMATOCRIT 26.1 % (34.0-47.0); LYMPH # 2.1 K/uL (1.0-4.3); LYMPH % 18.3 % (20.0-40.0); MEAN CELL VOLUME 99.2 fL (81.0-99.0); MEAN CORPUSCULAR HGB CONC 31.2 g/dL (33.0-37.0); MEAN PLATELET VOLUME 8.3 fL (7.2-11.7); MONO # 0.9 K/uL (0.0-0.8); MONO % 7.6 % (0.0-10.0); NRBC % 0.3 % (0.0-2.0); RED CELL DISTRIBUTION WIDTH 21.1 % (11.5-14.5); WHITE BLOOD COUNT 11.7 K/uL (4.8-10.8)
[2017-04-18 07:36] LABS: CALCIUM 8.8 mg/dl (8.6-10.4); POTASSIUM 4.9 mmol/L (3.6-5.2)
[2017-04-18] MEDS: (Novolin R) Insulin Human Regular 100 units/ml vial SC SCH ×4 (08:30→22:31)
[2017-04-18] MEDS: Multivitamin Vitamin B Complex (Nephro-Vite) Tab PO SCH (09:00)
--- NOTE | 2017-04-18 09:45 | CP.PCM.PN ---
Subjective - Date & Time of Evaluation Date of Evaluation: 04/18/17 Time of Evaluation: 09:43 - Subjective Subjective: Pt anxious about pain meds Left toes with 1 necrotic tip BP controlled Eating well; no other cpmplaint due for dialysis this AM Hg lower-8.2- still on EPO Objective - Vital Signs/Intake and Output Vital Signs (last 24 hours): Temp Pulse Resp BP Pulse Ox 98.2 F 97 H 20 146/85 96 04/18/17 08:16 04/18/17 08:16 04/18/17 08:16 04/18/17 08:16 04/18/17 08:16 - Medications Medications: Current Medications Acetaminophen (Tylenol 325mg Tab) 650 mg PO Q8H [facility] Last Admin: 04/18/17 09:00 Dose: 650 mg Albuterol/Ipratropium (Duoneb 3 Mg/0.5 Mg (3 Ml) Ud) 3 ml INH RQ4 PRN PRN Reason: dyspnea Aspirin (Ecotrin) 81 mg PO DAILY [facility] Last Admin: 04/17/17 10:09 Dose: 81 mg Carvedilol (Coreg) 3.125 mg PO BID [facility] Last Admin: 04/17/17 18:00 Dose: 3.125 mg Clopidogrel Bisulfate (Plavix) 75 mg PO DAILY [facility] Last Admin: 04/17/17 10:08 Dose: 75 mg Diphenhydramine HCl (Benadryl) 25 mg IVP Q4 PRN PRN Reason: Itching / Pruritus Last Admin: 04/18/17 05:33 Dose: 25 mg Epoetin Alec (Procrit) 10,000 unit IV TuThSa [facility] Last Admin: 04/16/17 10:45 Dose: 10,000 unit Famotidine (Pepcid) 20 mg PO DAILY [facility] Last Admin: 04/17/17 10:08 Dose: 20 mg Gabapentin (Neurontin) 100 mg PO QPM [facility] Last Admin: 04/17/17 18:00 Dose: 100 mg Heparin Sodium (Porcine) (Heparin) 5,000 units SC Q12 [facility] Last Admin: 04/17/17 21:27 Dose: 5,000 units Hydromorphone HCl (Dilaudid) 1 mg IVP Q5H PRN PRN Reason: Pain, severe (8-10) Last Admin: 04/18/17 05:33 Dose: 1 mg Meropenem 500 mg/ Sodium (Chloride) 100 mls @ 100 mls/hr IVPB Q12H [facility] Last Admin: 04/18/17 05:32 Dose: 100 mls/hr Insulin Glargine (Lantus) 10 unit SC HS [facility] Last Admin: 04/17/17 21:28 Dose: 10 units Insulin Human Regular (Novolin R) 0 unit SC ACHS [facility] PRN Reason: Protocol Last Admin: 04/18/17 08:30 Dose: Not Given Ondansetron HCl (Zofran Inj) 4 mg IVP Q4 PRN PRN Reason: Nausea/Vomiting Oxycodone/Acetaminophen (Percocet 5/325 Mg Tab) 1 tab PO Q6H PRN PRN Reason: Pain, moderate (4-7) Stop: 04/20/17 09:56 Last Admin: 04/17/17 15:06 Dose: 1 tab Saccharomyces Boulardii (Florastor) 250 mg PO TID [facility] Last Admin: 04/17/17 18:00 Dose: 250 mg Vitamin B Complex/Vit C/Folic Acid (Nephro-Cony) 1 tab PO 0800 [facility] Last Admin: 04/18/17 09:00 Dose: 1 tab - Labs Labs: 04/18/17 07:04 04/18/17 07:04 PT 11.8 SECONDS (9.7-12.2) 04/15/17 17:09 INR 1.0 04/15/17 17:09 APTT 34 SECONDS (21-34) 04/15/17 17:09 - Constitutional Appears: No Acute Distress, Chronically Ill - Head Exam Head Exam: ATRAUMATIC, NORMAL INSPECTION - Eye Exam Eye Exam: EOMI, Normal appearance - Neck Exam Neck Exam: Normal Inspection. absent: Tenderness - Respiratory Exam Respiratory Exam: Clear to Ausculation Bilateral, NORMAL BREATHING PATTERN - Cardiovascular Exam Cardiovascular Exam: REGULAR RHYTHM, +S1 - GI/Abdominal Exam GI & Abdominal Exam: Soft. absent: Tenderness - Extremities Exam Extremities Exam: Normal Inspection. absent: Tenderness - Neurological Exam Neurological Exam: Alert, CN II-XII Intact - Skin Skin Exam: Dry, Warm Assessment and Plan (1) Type 1 diabetes mellitus with diabetic nephropathy Status: Acute (2) Gangrene of right foot Status: Acute (3) End stage renal disease Status: Acute (4) Fecal impaction Status: Acute (5) CHF (congestive heart failure) Status: Acute - Assessment and Plan (Free Text) Plan: Dialysis now and TTS continue EPO- follow up Hg; Fe stores have been adequate continue wound care; monitor PVD left LE as well
[2017-04-18] MEDS: Saccharomyces Boulardi 250 mg Cap PO SCH ×3 (10:46→17:43)
[2017-04-18] MEDS ORDERED: Albumin Human 25% (12.5 gm/50 ml) IV ONE ×2 (13:06→13:45)
[2017-04-18] MEDS: Epoetin Alfa 10,000 unit/ml Dialysis IV SCH (13:42)
--- NOTE | 2017-04-18 19:46 | CP.PCM.PN ---
Subjective - Date & Time of Evaluation Date of Evaluation: 04/18/17 Time of Evaluation: 19:41 - Subjective Subjective: pt is poorly eating but liquid stool noted less pain did HD today BP low during HD now better now labs noted still awaiting for rehab placement Objective - Vital Signs/Intake and Output Vital Signs (last 24 hours): Temp Pulse Resp BP Pulse Ox 97.6 F 102 H 20 166/93 H 100 04/18/17 17:29 04/18/17 17:29 04/18/17 17:29 04/18/17 17:29 04/18/17 17:29 - Medications Medications: Current Medications Acetaminophen (Tylenol 325mg Tab) 650 mg PO Q8H [facility] Last Admin: 04/18/17 16:45 Dose: Not Given Albuterol/Ipratropium (Duoneb 3 Mg/0.5 Mg (3 Ml) Ud) 3 ml INH RQ4 PRN PRN Reason: dyspnea Aspirin (Ecotrin) 81 mg PO DAILY [facility] Last Admin: 04/18/17 10:46 Dose: 81 mg Clopidogrel Bisulfate (Plavix) 75 mg PO DAILY [facility] Last Admin: 04/18/17 10:46 Dose: 75 mg Diphenhydramine HCl (Benadryl) 25 mg IVP Q4 PRN PRN Reason: Itching / Pruritus Last Admin: 04/18/17 17:33 Dose: 25 mg Epoetin Alec (Procrit) 10,000 unit IV TuThSa [facility] Last Admin: 04/18/17 13:42 Dose: 10,000 unit Famotidine (Pepcid) 20 mg PO DAILY [facility] Last Admin: 04/18/17 10:48 Dose: 20 mg Gabapentin (Neurontin) 100 mg PO QPM [facility] Last Admin: 04/18/17 17:43 Dose: 100 mg Heparin Sodium (Porcine) (Heparin) 5,000 units SC Q12 [facility] Last Admin: 04/18/17 10:48 Dose: 5,000 units Hydromorphone HCl (Dilaudid) 1 mg IVP Q4 PRN PRN Reason: Pain, severe (8-10) Last Admin: 04/18/17 17:34 Dose: 1 mg Meropenem 500 mg/ Sodium (Chloride) 100 mls @ 100 mls/hr IVPB Q12H [facility] Last Admin: 04/18/17 17:44 Dose: 100 mls/hr Insulin Glargine (Lantus) 10 unit SC HS [facility] Last Admin: 04/17/17 21:28 Dose: 10 units Insulin Human Regular (Novolin R) 0 unit SC ACHS [facility] PRN Reason: Protocol Last Admin: 04/18/17 17:45 Dose: Not Given Ondansetron HCl (Zofran Inj) 4 mg IVP Q4 PRN PRN Reason: Nausea/Vomiting Oxycodone/Acetaminophen (Percocet 5/325 Mg Tab) 1 tab PO Q6H PRN PRN Reason: Pain, moderate (4-7) Stop: 04/20/17 09:56 Last Admin: 04/17/17 15:06 Dose: 1 tab Saccharomyces Boulardii (Florastor) 250 mg PO TID [facility] Last Admin: 04/18/17 17:43 Dose: 250 mg Vitamin B Complex/Vit C/Folic Acid (Nephro-Cony) 1 tab PO 0800 [facility] Last Admin: 04/18/17 09:00 Dose: 1 tab - Labs Labs: 04/18/17 07:04 04/18/17 07:04 PT 11.8 SECONDS (9.7-12.2) 04/15/17 17:09 INR 1.0 04/15/17 17:09 APTT 34 SECONDS (21-34) 04/15/17 17:09
[2017-04-18] MEDS: (Lantus) Insulin Glargine, Recombinant SC SCH (22:23)
[2017-04-19] MEDS: DiphenhydrAMINE 50 mg/ml Inj IVP PRN ×4 (02:26→21:13)
[2017-04-19] MEDS: HYDROmorphone 1 mg/ml ISec IVP PRN ×4 (02:27→21:13)
[2017-04-19] MEDS: Meropenem 500 MG in Sodium Chloride 0.9% 100 ML IVPB SCH ×2 (05:13→18:43)
--- NOTE | 2017-04-19 08:08 | CP.PCM.PN ---
Subjective - Date & Time of Evaluation Date of Evaluation: 04/19/17 Time of Evaluation: 08:04 - Subjective Subjective: Surgery: Dr. Clark Pt seen and examined. Resting comfortably in bed. Pain controlled. Ostomy functioning. No acute events overnight. Objective - Vital Signs/Intake and Output Vital Signs (last 24 hours): Temp Pulse Resp BP Pulse Ox 98.4 F 106 H 20 109/68 95 04/19/17 00:00 04/19/17 00:00 04/19/17 00:00 04/19/17 00:00 04/19/17 00:00 Intake and Output: 04/19/17 04/19/17 06:59 18:59 Intake Total 450 Output Total 650 Balance -200 - Medications Medications: Current Medications Acetaminophen (Tylenol 325mg Tab) 650 mg PO Q8H [facility] Last Admin: 04/19/17 07:16 Dose: Not Given Albuterol/Ipratropium (Duoneb 3 Mg/0.5 Mg (3 Ml) Ud) 3 ml INH RQ4 PRN PRN Reason: dyspnea Aspirin (Ecotrin) 81 mg PO DAILY [facility] Last Admin: 04/18/17 10:46 Dose: 81 mg Clopidogrel Bisulfate (Plavix) 75 mg PO DAILY [facility] Last Admin: 04/18/17 10:46 Dose: 75 mg Diphenhydramine HCl (Benadryl) 25 mg IVP Q4 PRN PRN Reason: Itching / Pruritus Last Admin: 04/19/17 06:33 Dose: 25 mg Epoetin Alec (Procrit) 10,000 unit IV TuThSa [facility] Last Admin: 04/18/17 13:42 Dose: 10,000 unit Famotidine (Pepcid) 20 mg PO DAILY [facility] Last Admin: 04/18/17 10:48 Dose: 20 mg Gabapentin (Neurontin) 100 mg PO QPM [facility] Last Admin: 04/18/17 17:43 Dose: 100 mg Heparin Sodium (Porcine) (Heparin) 5,000 units SC Q12 [facility] Last Admin: 04/18/17 22:23 Dose: 5,000 units Hydromorphone HCl (Dilaudid) 1 mg IVP Q4 PRN PRN Reason: Pain, severe (8-10) Last Admin: 04/19/17 06:34 Dose: 1 mg Meropenem 500 mg/ Sodium (Chloride) 100 mls @ 100 mls/hr IVPB Q12H [facility] Last Admin: 04/19/17 05:13 Dose: 100 mls/hr Insulin Glargine (Lantus) 10 unit SC HS [facility] Last Admin: 04/18/17 22:23 Dose: 10 units Insulin Human Regular (Novolin R) 0 unit SC ACHS [facility] PRN Reason: Protocol Last Admin: 04/18/17 22:31 Dose: Not Given Ondansetron HCl (Zofran Inj) 4 mg IVP Q4 PRN PRN Reason: Nausea/Vomiting Oxycodone/Acetaminophen (Percocet 5/325 Mg Tab) 1 tab PO Q6H PRN PRN Reason: Pain, moderate (4-7) Stop: 04/20/17 09:56 Last Admin: 04/17/17 15:06 Dose: 1 tab Saccharomyces Boulardii (Florastor) 250 mg PO TID [facility] Last Admin: 04/18/17 17:43 Dose: 250 mg Vitamin B Complex/Vit C/Folic Acid (Nephro-Cony) 1 tab PO 0800 [facility] Last Admin: 04/18/17 09:00 Dose: 1 tab - Labs Labs: 04/18/17 07:04 04/18/17 07:04 PT 11.8 SECONDS (9.7-12.2) 04/15/17 17:09 INR 1.0 04/15/17 17:09 APTT 34 SECONDS (21-34) 04/15/17 17:09 - Constitutional Appears: Non-toxic, No Acute Distress - Head Exam Head Exam: ATRAUMATIC, NORMOCEPHALIC - Eye Exam Eye Exam: EOMI - ENT Exam ENT Exam: Mucous Membranes Moist - Respiratory Exam Respiratory Exam: NORMAL BREATHING PATTERN. absent: Accessory Muscle Use, Respiratory Distress - GI/Abdominal Exam GI & Abdominal Exam: Soft. absent: Distended, Tenderness Additional comments: R side stoma pink and patent Midline incision, + pus from superior and inferior portion - Extremities Exam Extremities Exam: absent: Calf Tenderness, Pedal Edema - Neurological Exam Neurological Exam: Alert, Awake, Oriented x3 - Psychiatric Exam Psychiatric exam: Normal Affect, Normal Mood Assessment and Plan - Assessment and Plan (Free Text) Assessment: 51F s/p subtotal colectomy 03/27/17 and R BKA 04/04/17 -Change dressing packing PRN -continue w. pain management -d/w attending Oleg PGY3
[2017-04-19] MEDS: Multivitamin Vitamin B Complex (Nephro-Vite) Tab PO SCH (08:34)
[2017-04-19] MEDS: (Novolin R) Insulin Human Regular 100 units/ml vial SC SCH ×4 (08:46→22:19)
[2017-04-19] MEDS: Saccharomyces Boulardi 250 mg Cap PO SCH ×3 (10:55→18:44)
[2017-04-19] MEDS: Acyclovir 5% Oint (15 gm) EXT SCH ×3 (11:05→18:45)
[2017-04-19] MEDS ORDERED: DiphenhydrAMINE 50 mg/ml Inj IVP STA (12:08)
--- NOTE | 2017-04-19 12:59 | CP.PCM.PN ---
Subjective - Date & Time of Evaluation Date of Evaluation: 04/19/17 Time of Evaluation: 12:55 - Subjective Subjective: BP low 04/18 with dialysis- albumin given and now carvedilol stopped left toe #1 gangrene slowly worseing BP better now no new labs same pains, depression; no other new complaint Objective - Vital Signs/Intake and Output Vital Signs (last 24 hours): Temp Pulse Resp BP Pulse Ox 99.0 F 103 H 20 138/69 95 04/19/17 08:17 04/19/17 08:17 04/19/17 08:17 04/19/17 08:17 04/19/17 08:17 Intake and Output: 04/19/17 04/19/17 06:59 18:59 Intake Total 450 Output Total 650 Balance -200 - Medications Medications: Current Medications Acetaminophen (Tylenol 325mg Tab) 650 mg PO Q8H [facility] Last Admin: 04/19/17 08:40 Dose: 650 mg Acyclovir (Zovirax 5% Oint) 1 gm EXT Q3H [facility] Last Admin: 04/19/17 11:05 Dose: 1 applic Albuterol/Ipratropium (Duoneb 3 Mg/0.5 Mg (3 Ml) Ud) 3 ml INH RQ4 PRN PRN Reason: dyspnea Aspirin (Ecotrin) 81 mg PO DAILY [facility] Last Admin: 04/19/17 10:55 Dose: 81 mg Clopidogrel Bisulfate (Plavix) 75 mg PO DAILY [facility] Last Admin: 04/19/17 10:55 Dose: 75 mg Diphenhydramine HCl (Benadryl) 25 mg IVP Q5H PRN PRN Reason: Itching / Pruritus Epoetin Alec (Procrit) 10,000 unit IV TuThSa [facility] Last Admin: 04/18/17 13:42 Dose: 10,000 unit Famotidine (Pepcid) 20 mg PO DAILY [facility] Last Admin: 04/19/17 10:55 Dose: 20 mg Gabapentin (Neurontin) 100 mg PO QPM [facility] Last Admin: 04/18/17 17:43 Dose: 100 mg Heparin Sodium (Porcine) (Heparin) 5,000 units SC Q12 [facility] Last Admin: 04/19/17 11:08 Dose: 5,000 units Hydromorphone HCl (Dilaudid) 1 mg IVP Q5H PRN PRN Reason: Pain, severe (8-10) Meropenem 500 mg/ Sodium (Chloride) 100 mls @ 100 mls/hr IVPB Q12H [facility] Last Admin: 04/19/17 05:13 Dose: 100 mls/hr Insulin Glargine (Lantus) 10 unit SC HS [facility] Last Admin: 04/18/17 22:23 Dose: 10 units Insulin Human Regular (Novolin R) 0 unit SC ACHS [facility] PRN Reason: Protocol Last Admin: 04/19/17 12:22 Dose: 2 unit Ondansetron HCl (Zofran Inj) 4 mg IVP Q4 PRN PRN Reason: Nausea/Vomiting Oxycodone/Acetaminophen (Percocet 5/325 Mg Tab) 1 tab PO Q6H PRN PRN Reason: Pain, moderate (4-7) Stop: 04/20/17 09:56 Last Admin: 04/17/17 15:06 Dose: 1 tab Saccharomyces Boulardii (Florastor) 250 mg PO TID [facility] Last Admin: 04/19/17 10:55 Dose: 250 mg Vitamin B Complex/Vit C/Folic Acid (Nephro-Cony) 1 tab PO 0800 [facility] Last Admin: 04/19/17 08:34 Dose: 1 tab - Labs Labs: 04/18/17 07:04 04/18/17 07:04 PT 11.8 SECONDS (9.7-12.2) 04/15/17 17:09 INR 1.0 04/15/17 17:09 APTT 34 SECONDS (21-34) 04/15/17 17:09 - Constitutional Appears: No Acute Distress, Chronically Ill - Head Exam Head Exam: ATRAUMATIC, NORMAL INSPECTION - Eye Exam Eye Exam: EOMI, Normal appearance - Neck Exam Neck Exam: Normal Inspection. absent: Tenderness - Respiratory Exam Respiratory Exam: Clear to Ausculation Bilateral, NORMAL BREATHING PATTERN - Cardiovascular Exam Cardiovascular Exam: REGULAR RHYTHM, +S1 - GI/Abdominal Exam GI & Abdominal Exam: Soft. 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
--- NOTE | 2017-04-19 16:27 | CP.PCM.PN ---
Subjective - Date & Time of Evaluation Date of Evaluation: 04/19/17 Time of Evaluation: 16:24 - Subjective Subjective: FINGER SPLINT APPLIED TO RIGHT THUMB. SEE XRAY REPORT FOR OFFICIAL RESULTS. PT HAS STILL BEEN C/O RIGHT THUMB PAIN AND PER PHY THER MOBILITY IS BEING AFFECTED BY IT WELL. WHILE APPLYING THE SPLINT PT WAS ASLEEP BUT AROUSABLE. AWARE WHY SPLINT BEING APPLIED; NO CONCERNS OR QUESTIONS ASKED. NO FURTHER ORDERS AT THIS TIME. Objective - Vital Signs/Intake and Output Vital Signs (last 24 hours): Temp Pulse Resp BP Pulse Ox 99.0 F 103 H 20 138/69 95 04/19/17 08:17 04/19/17 16:05 04/19/17 08:17 04/19/17 16:05 04/19/17 16:05 Intake and Output: 04/19/17 04/19/17 06:59 18:59 Intake Total 450 400 Output Total 650 450 Balance -200 -50 - Medications Medications: Current Medications Acetaminophen (Tylenol 325mg Tab) 650 mg PO Q8H [facility] Last Admin: 04/19/17 08:40 Dose: 650 mg Acyclovir (Zovirax 5% Oint) 1 gm EXT Q3H [facility] Last Admin: 04/19/17 14:09 Dose: 1 applic Albuterol/Ipratropium (Duoneb 3 Mg/0.5 Mg (3 Ml) Ud) 3 ml INH RQ4 PRN PRN Reason: dyspnea Aspirin (Ecotrin) 81 mg PO DAILY [facility] Last Admin: 04/19/17 10:55 Dose: 81 mg Clopidogrel Bisulfate (Plavix) 75 mg PO DAILY [facility] Last Admin: 04/19/17 10:55 Dose: 75 mg Diphenhydramine HCl (Benadryl) 25 mg IVP Q5H PRN PRN Reason: Itching / Pruritus Epoetin Alec (Procrit) 10,000 unit IV TuThSa [facility] Last Admin: 04/18/17 13:42 Dose: 10,000 unit Famotidine (Pepcid) 20 mg PO DAILY [facility] Last Admin: 04/19/17 10:55 Dose: 20 mg Gabapentin (Neurontin) 100 mg PO QPM [facility] Last Admin: 04/18/17 17:43 Dose: 100 mg Heparin Sodium (Porcine) (Heparin) 5,000 units SC Q12 [facility] Last Admin: 04/19/17 11:08 Dose: 5,000 units Hydromorphone HCl (Dilaudid) 1 mg IVP Q5H PRN PRN Reason: Pain, severe (8-10) Meropenem 500 mg/ Sodium (Chloride) 100 mls @ 100 mls/hr IVPB Q12H [facility] Last Admin: 04/19/17 05:13 Dose: 100 mls/hr Insulin Glargine (Lantus) 10 unit SC HS [facility] Last Admin: 04/18/17 22:23 Dose: 10 units Insulin Human Regular (Novolin R) 0 unit SC ACHS [facility] PRN Reason: Protocol Last Admin: 04/19/17 12:22 Dose: 2 unit Ondansetron HCl (Zofran Inj) 4 mg IVP Q4 PRN PRN Reason: Nausea/Vomiting Oxycodone/Acetaminophen (Percocet 5/325 Mg Tab) 1 tab PO Q6H PRN PRN Reason: Pain, moderate (4-7) Stop: 04/20/17 09:56 Last Admin: 04/17/17 15:06 Dose: 1 tab Saccharomyces Boulardii (Florastor) 250 mg PO TID [facility] Last Admin: 04/19/17 14:10 Dose: 250 mg Vitamin B Complex/Vit C/Folic Acid (Nephro-Cony) 1 tab PO 0800 [facility] Last Admin: 04/19/17 08:34 Dose: 1 tab - Labs Labs: 04/18/17 07:04 04/18/17 07:04 PT 11.8 SECONDS (9.7-12.2) 04/15/17 17:09 INR 1.0 04/15/17 17:09 APTT 34 SECONDS (21-34) 04/15/17 17:09
[2017-04-19] MEDS: (Lantus) Insulin Glargine, Recombinant SC SCH (22:18)
[2017-04-20] MEDS: Meropenem 500 MG in Sodium Chloride 0.9% 100 ML IVPB SCH ×2 (05:54→17:50)
[2017-04-20] MEDS: Acyclovir 5% Oint (15 gm) EXT SCH ×7 (07:30→22:25)
[2017-04-20] MEDS: (Novolin R) Insulin Human Regular 100 units/ml vial SC SCH ×4 (07:30→22:26)
[2017-04-20] MEDS: HYDROmorphone 1 mg/ml ISec IVP PRN ×3 (08:23→18:45)
[2017-04-20] MEDS: DiphenhydrAMINE 50 mg/ml Inj IVP PRN ×2 (08:25→13:47)
[2017-04-20] MEDS: Multivitamin Vitamin B Complex (Nephro-Vite) Tab PO SCH (08:27)
--- NOTE | 2017-04-20 09:11 | CP.PCM.PN ---
Subjective - Date & Time of Evaluation Date of Evaluation: 04/20/17 Time of Evaluation: 09:08 - Subjective Subjective: NOtes reviewed Comfortable in bed No distress Waiting for dialysis! 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 Wants HD daily as she was on pd daily - discussed differences in hd and pd Pain controlled No cp or palp, no sob or coogh, no n/v/d Generalized aches and pains controlled with medication ROS negative unless stated above Objective - Vital Signs/Intake and Output Vital Signs (last 24 hours): Temp Pulse Resp BP Pulse Ox 98.3 F 103 H 20 165/80 H 96 04/20/17 07:52 04/20/17 07:52 04/20/17 07:52 04/20/17 07:52 04/20/17 07:52 Intake and Output: 04/20/17 04/20/17 06:59 18:59 Intake Total 450 Output Total 505 200 Balance -55 -200 - Medications Medications: Current Medications Acetaminophen (Tylenol 325mg Tab) 650 mg PO Q8H [facility] Last Admin: 04/20/17 00:00 Dose: Not Given Acyclovir (Zovirax 5% Oint) 1 gm EXT Q3H [facility] Last Admin: 04/19/17 18:45 Dose: 1 applic Aspirin (Ecotrin) 81 mg PO DAILY [facility] Last Admin: 04/19/17 10:55 Dose: 81 mg Clopidogrel Bisulfate (Plavix) 75 mg PO DAILY [facility] Last Admin: 04/19/17 10:55 Dose: 75 mg Diphenhydramine HCl (Benadryl) 25 mg IVP Q5H PRN PRN Reason: Itching / Pruritus Last Admin: 04/19/17 21:13 Dose: 25 mg Epoetin Alec (Procrit) 10,000 unit IV TuThSa [facility] Last Admin: 04/18/17 13:42 Dose: 10,000 unit Famotidine (Pepcid) 20 mg PO DAILY [facility] Last Admin: 04/19/17 10:55 Dose: 20 mg Gabapentin (Neurontin) 100 mg PO QPM [facility] Last Admin: 04/19/17 18:44 Dose: 100 mg Heparin Sodium (Porcine) (Heparin) 5,000 units SC Q12 [facility] Last Admin: 04/19/17 22:17 Dose: 5,000 units Hydromorphone HCl (Dilaudid) 1 mg IVP Q5H PRN PRN Reason: Pain, severe (8-10) Last Admin: 04/20/17 08:23 Dose: 1 mg Meropenem 500 mg/ Sodium (Chloride) 100 mls @ 100 mls/hr IVPB Q12H [facility] Last Admin: 04/20/17 05:54 Dose: 100 mls/hr Insulin Glargine (Lantus) 10 unit SC HS [facility] Last Admin: 04/19/17 22:18 Dose: 10 units Insulin Human Regular (Novolin R) 0 unit SC ACHS [facility] PRN Reason: Protocol Last Admin: 04/19/17 22:19 Dose: Not Given Ondansetron HCl (Zofran Inj) 4 mg IVP Q4 PRN PRN Reason: Nausea/Vomiting Saccharomyces Boulardii (Florastor) 250 mg PO TID [facility] Last Admin: 04/19/17 18:44 Dose: 250 mg Vitamin B Complex/Vit C/Folic Acid (Nephro-Cony) 1 tab PO 0800 [facility] Last Admin: 04/20/17 08:27 Dose: 1 tab - Labs Labs: 04/18/17 07:04 04/18/17 07:04 PT 11.8 SECONDS (9.7-12.2) 04/15/17 17:09 INR 1.0 04/15/17 17:09 APTT 34 SECONDS (21-34) 04/15/17 17:09 - Constitutional Appears: Non-toxic, Chronically Ill - Head Exam Head Exam: ATRAUMATIC, NORMOCEPHALIC - Eye Exam Eye Exam: EOMI, Normal appearance - ENT Exam ENT Exam: Mucous Membranes Moist, Normal Oropharynx - Neck Exam Neck Exam: absent: Lymphadenopathy, Thyromegaly - Respiratory Exam Respiratory Exam: absent: Rales, Rhonchi, Wheezes - Cardiovascular Exam Cardiovascular Exam: REGULAR RHYTHM, +S1, +S2 - GI/Abdominal Exam GI & Abdominal Exam: Soft, Normal Bowel Sounds - Neurological Exam Neurological Exam: Alert, Awake, Oriented x3 - Psychiatric Exam Psychiatric exam: Normal Affect, Normal Mood Assessment and Plan (1) Gangrene of right foot Status: Acute (2) Anemia Status: Acute (3) Diabetes mellitus Status: Acute (4) ESRD on peritoneal dialysis Status: Acute (5) Hypertension Status: Acute - Assessment and Plan (Free Text) Assessment: Dialysis scheduled today Discussed need for hd 3x week and not daily - not sure that patient understands this yet Bp improved with reduction in meds, repeat bp after dialysis today Continue current care
[2017-04-20] MEDS: Saccharomyces Boulardi 250 mg Cap PO SCH ×3 (10:32→18:52)
[2017-04-20 12:21] LABS: HEMATOCRIT 24.5 % (34.0-47.0); MEAN CELL VOLUME 99.5 fL (81.0-99.0); MEAN CORPUSCULAR HEMOGLOBIN 31.7 pg (27.0-31.0); MEAN CORPUSCULAR HGB CONC 31.9 g/dL (33.0-37.0); MEAN PLATELET VOLUME 8.5 fL (7.2-11.7); RED CELL DISTRIBUTION WIDTH 23.4 % (11.5-14.5); WHITE BLOOD COUNT 11.4 K/uL (4.8-10.8)
[2017-04-20 12:48] LABS: ALB/GLOB RATIO 0.8 (1.0-2.1); BILIRUBIN,TOTAL 0.4 mg/dL (0.2-1.3); CALCIUM 8.9 mg/dl (8.6-10.4); POTASSIUM 4.7 mmol/L (3.6-5.2); TOTAL PROTEIN 6.9 g/dL (6.3-8.3)
[2017-04-20] MEDS: Epoetin Alfa 10,000 unit/ml Dialysis IV SCH ×2 (16:16→16:18)
--- NOTE | 2017-04-20 22:06 | CP.PCM.PN ---
Subjective - Date & Time of Evaluation Date of Evaluation: 04/20/17 Time of Evaluation: 22:01 - Subjective Subjective: examined pt still having pain left foot having pain discoloration of the great toe and 3toe changes noted atropic leg muscles had HD today BP low during HD making peripheral A. low flow state XRAY had showing arterial calcifiation even in the hand vessels. severe atherosclerosis of vessels high risk for ischemic chnages for now awaiting for rehab may need intervension to left leg similar to rt leg pt is understanding bu upset complications of long standing DM and renal failure and HTN and atherosclerosis Objective - Vital Signs/Intake and Output Vital Signs (last 24 hours): Temp Pulse Resp BP Pulse Ox 98.9 F 98 H 17 107/57 L 96 04/20/17 14:35 04/20/17 18:00 04/20/17 16:40 04/20/17 18:00 04/20/17 16:40 Intake and Output: 04/20/17 04/21/17 18:59 06:59 Output Total 200 Balance -200 - Medications Medications: Current Medications Acetaminophen (Tylenol 325mg Tab) 650 mg PO Q8H [facility] Last Admin: 04/20/17 12:19 Dose: 650 mg Acyclovir (Zovirax 5% Oint) 1 gm EXT Q3H [facility] Last Admin: 04/20/17 13:57 Dose: 1 applic Aspirin (Ecotrin) 81 mg PO DAILY [facility] Last Admin: 04/20/17 10:33 Dose: 81 mg Clopidogrel Bisulfate (Plavix) 75 mg PO DAILY [facility] Last Admin: 04/20/17 10:33 Dose: 75 mg Diphenhydramine HCl (Benadryl) 25 mg IVP Q5H PRN PRN Reason: Itching / Pruritus Last Admin: 04/20/17 13:47 Dose: 25 mg Epoetin Alec (Procrit) 10,000 unit IV TuThSa [facility] Last Admin: 04/20/17 16:18 Dose: 10,000 unit Famotidine (Pepcid) 20 mg PO DAILY [facility] Last Admin: 04/20/17 10:33 Dose: 20 mg Gabapentin (Neurontin) 100 mg PO QPM [facility] Last Admin: 04/20/17 18:52 Dose: 100 mg Heparin Sodium (Porcine) (Heparin) 5,000 units SC Q12 [facility] Last Admin: 04/20/17 10:32 Dose: 5,000 units Hydromorphone HCl (Dilaudid) 1 mg IVP Q5H PRN PRN Reason: Pain, severe (8-10) Last Admin: 04/20/17 18:45 Dose: 1 mg Meropenem 500 mg/ Sodium (Chloride) 50 mls @ 100 mls/hr IVPB Q12H [facility] Insulin Glargine (Lantus) 10 unit SC HS [facility] Last Admin: 04/19/17 22:18 Dose: 10 units Insulin Human Regular (Novolin R) 0 unit SC ACHS [facility] PRN Reason: Protocol Last Admin: 04/20/17 19:09 Dose: 1 unit Ondansetron HCl (Zofran Inj) 4 mg IVP Q4 PRN PRN Reason: Nausea/Vomiting Saccharomyces Boulardii (Florastor) 250 mg PO TID [facility] Last Admin: 04/20/17 18:52 Dose: 250 mg Vitamin B Complex/Vit C/Folic Acid (Nephro-Cony) 1 tab PO 0800 [facility] Last Admin: 04/20/17 08:27 Dose: 1 tab - Labs Labs: 04/20/17 12:17 04/20/17 12:17 PT 11.8 SECONDS (9.7-12.2) 04/15/17 17:09 INR 1.0 04/15/17 17:09 APTT 34 SECONDS (21-34) 04/15/17 17:09
[2017-04-20] MEDS: (Lantus) Insulin Glargine, Recombinant SC SCH (22:29)
[2017-04-21] MEDS: HYDROmorphone 1 mg/ml ISec IVP PRN ×5 (00:49→23:57)
[2017-04-21] MEDS: DiphenhydrAMINE 50 mg/ml Inj IVP PRN ×4 (00:51→23:56)
[2017-04-21] MEDS: Acyclovir 5% Oint (15 gm) EXT SCH ×9 (00:52→22:16)
[2017-04-21] MEDS: Meropenem 500 MG in Sodium Chloride 0.9% 50 ML IVPB SCH ×2 (05:22→18:51)
--- NOTE | 2017-04-21 08:20 | CP.PCM.PN ---
Subjective - Date & Time of Evaluation Date of Evaluation: 04/21/17 Time of Evaluation: 07:00 - Subjective Subjective: Surgery Note for Dr. Clark Patient seen and examined at bedside. No acute event overnight. Patient lying comfortably in bed. Patient states her pain is controlled. Ileostomy functioning properly. Tolerating diet. Objective - Vital Signs/Intake and Output Vital Signs (last 24 hours): Temp Pulse Resp BP Pulse Ox 98.2 F 101 H 20 120/77 100 04/21/17 00:00 04/21/17 00:00 04/21/17 00:00 04/21/17 00:00 04/21/17 00:00 Intake and Output: 04/21/17 04/21/17 06:59 18:59 Intake Total 200 200 Output Total 410 505 Balance -210 -305 - Medications Medications: Current Medications Acetaminophen (Tylenol 325mg Tab) 650 mg PO Q8H [facility] Last Admin: 04/21/17 04:01 Dose: 650 mg Acyclovir (Zovirax 5% Oint) 1 gm EXT Q3H [facility] Last Admin: 04/21/17 04:04 Dose: 1 applic Aspirin (Ecotrin) 81 mg PO DAILY [facility] Last Admin: 04/20/17 10:33 Dose: 81 mg Clopidogrel Bisulfate (Plavix) 75 mg PO DAILY [facility] Last Admin: 04/20/17 10:33 Dose: 75 mg Diphenhydramine HCl (Benadryl) 25 mg IVP Q5H PRN PRN Reason: Itching / Pruritus Last Admin: 04/21/17 06:49 Dose: 25 mg Epoetin Alec (Procrit) 10,000 unit IV TuThSa [facility] Last Admin: 04/20/17 16:18 Dose: 10,000 unit Famotidine (Pepcid) 20 mg PO DAILY [facility] Last Admin: 04/20/17 10:33 Dose: 20 mg Gabapentin (Neurontin) 100 mg PO QPM [facility] Last Admin: 04/20/17 18:52 Dose: 100 mg Heparin Sodium (Porcine) (Heparin) 5,000 units SC Q12 [facility] Last Admin: 04/20/17 22:25 Dose: 5,000 units Hydromorphone HCl (Dilaudid) 1 mg IVP Q5H PRN PRN Reason: Pain, severe (8-10) Last Admin: 04/21/17 06:49 Dose: 1 mg Meropenem 500 mg/ Sodium (Chloride) 50 mls @ 100 mls/hr IVPB Q12H [facility] Last Admin: 04/21/17 05:22 Dose: 100 mls/hr Insulin Glargine (Lantus) 10 unit SC HS [facility] Last Admin: 04/20/17 22:29 Dose: 10 units Insulin Human Regular (Novolin R) 0 unit SC ACHS [facility] PRN Reason: Protocol Last Admin: 04/20/17 22:26 Dose: Not Given Ondansetron HCl (Zofran Inj) 4 mg IVP Q4 PRN PRN Reason: Nausea/Vomiting Saccharomyces Boulardii (Florastor) 250 mg PO TID [facility] Last Admin: 04/20/17 18:52 Dose: 250 mg Vitamin B Complex/Vit C/Folic Acid (Nephro-Cony) 1 tab PO 0800 [facility] Last Admin: 04/20/17 08:27 Dose: 1 tab - Labs Labs: 04/20/17 12:17 04/20/17 12:17 PT 11.8 SECONDS (9.7-12.2) 04/15/17 17:09 INR 1.0 04/15/17 17:09 APTT 34 SECONDS (21-34) 04/15/17 17:09 - Constitutional Appears: No Acute Distress - Head Exam Head Exam: ATRAUMATIC, NORMOCEPHALIC - Eye Exam Eye Exam: Normal appearance - Respiratory Exam Respiratory Exam: NORMAL BREATHING PATTERN - Cardiovascular Exam Cardiovascular Exam: REGULAR RHYTHM - GI/Abdominal Exam Additional comments: ileostomy site pink and patent producing soft stool Midline incision has small amount of purulent drainage from superior and inferior portion - Extremities Exam Additional comments: s/p r bka with immobilizer on - Neurological Exam Neurological Exam: Alert, Awake, Oriented x3 - Psychiatric Exam Psychiatric exam: Normal Affect, Normal Mood - Skin Skin Exam: Dry, Warm Assessment and Plan - Assessment and Plan (Free Text) Plan: 51F s/p subtotal colectomy and s/p R BKA -Change dressing packing PRN -Analgesics PRN -Discussed with Dr. Eduardo Grajeda PGY1
[2017-04-21] MEDS: Multivitamin Vitamin B Complex (Nephro-Vite) Tab PO SCH (09:00)
[2017-04-21] MEDS: (Novolin R) Insulin Human Regular 100 units/ml vial SC SCH ×4 (09:00→21:14)
[2017-04-21] MEDS: Saccharomyces Boulardi 250 mg Cap PO SCH ×3 (11:25→18:52)
--- NOTE | 2017-04-21 14:40 | CP.PCM.PN ---
Subjective - Date & Time of Evaluation Date of Evaluation: 04/21/17 Time of Evaluation: 10:00 - Subjective Subjective: events noted may need BKA Objective - Vital Signs/Intake and Output Vital Signs (last 24 hours): Temp Pulse Resp BP Pulse Ox 98 F 96 H 20 139/76 95 04/21/17 08:39 04/21/17 08:39 04/21/17 08:39 04/21/17 08:39 04/21/17 08:39 Intake and Output: 04/21/17 04/21/17 06:59 18:59 Intake Total 200 200 Output Total 410 505 Balance -210 -305 - Medications Medications: Current Medications Acetaminophen (Tylenol 325mg Tab) 650 mg PO Q8H [facility] Last Admin: 04/21/17 09:13 Dose: 650 mg Acyclovir (Zovirax 5% Oint) 1 gm EXT Q3H [facility] Last Admin: 04/21/17 13:47 Dose: 1 applic Aspirin (Ecotrin) 81 mg PO DAILY [facility] Last Admin: 04/21/17 11:26 Dose: 81 mg Clopidogrel Bisulfate (Plavix) 75 mg PO DAILY [facility] Last Admin: 04/21/17 11:26 Dose: 75 mg Diphenhydramine HCl (Benadryl) 25 mg IVP Q5H PRN PRN Reason: Itching / Pruritus Last Admin: 04/21/17 13:28 Dose: 25 mg Epoetin Alec (Procrit) 10,000 unit IV TuThSa [facility] Last Admin: 04/20/17 16:18 Dose: 10,000 unit Famotidine (Pepcid) 20 mg PO DAILY [facility] Last Admin: 04/21/17 11:25 Dose: 20 mg Gabapentin (Neurontin) 100 mg PO QPM [facility] Last Admin: 04/20/17 18:52 Dose: 100 mg Heparin Sodium (Porcine) (Heparin) 5,000 units SC Q12 [facility] Last Admin: 04/21/17 11:26 Dose: 5,000 units Hydromorphone HCl (Dilaudid) 1 mg IVP Q5H PRN PRN Reason: Pain, severe (8-10) Last Admin: 04/21/17 13:29 Dose: 1 mg Meropenem 500 mg/ Sodium (Chloride) 50 mls @ 100 mls/hr IVPB Q12H [facility] Last Admin: 04/21/17 05:22 Dose: 100 mls/hr Insulin Glargine (Lantus) 10 unit SC HS [facility] Last Admin: 04/20/17 22:29 Dose: 10 units Insulin Human Regular (Novolin R) 0 unit SC ACHS [facility] PRN Reason: Protocol Last Admin: 04/21/17 12:30 Dose: Not Given Ondansetron HCl (Zofran Inj) 4 mg IVP Q4 PRN PRN Reason: Nausea/Vomiting Saccharomyces Boulardii (Florastor) 250 mg PO TID [facility] Last Admin: 04/21/17 13:49 Dose: 250 mg Vitamin B Complex/Vit C/Folic Acid (Nephro-Cony) 1 tab PO 0800 [facility] Last Admin: 04/21/17 09:00 Dose: 1 tab - Labs Labs: 04/20/17 12:17 04/20/17 12:17 PT 11.8 SECONDS (9.7-12.2) 04/15/17 17:09 INR 1.0 04/15/17 17:09 APTT 34 SECONDS (21-34) 04/15/17 17:09 - Constitutional Appears: Non-toxic, Chronically Ill - Head Exam Head Exam: NORMOCEPHALIC - Eye Exam Eye Exam: absent: Scleral icterus - ENT Exam ENT Exam: Mucous Membranes Dry Assessment and Plan (1) Gangrene of right foot Status: Acute (2) Chronic anemia Status: Acute (3) Chronic congestive heart failure Status: Acute (4) Diabetes mellitus Status: Acute (5) ESRD on peritoneal dialysis Status: Acute
[2017-04-21] MEDS: (Lantus) Insulin Glargine, Recombinant SC SCH (21:13)
[2017-04-22] MEDS: Acyclovir 5% Oint (15 gm) EXT SCH ×8 (01:30→22:51)
[2017-04-22] MEDS: Meropenem 500 MG in Sodium Chloride 0.9% 50 ML IVPB SCH ×2 (05:27→16:44)
[2017-04-22] MEDS: HYDROmorphone 1 mg/ml ISec IVP PRN ×4 (06:37→21:30)
[2017-04-22] MEDS: DiphenhydrAMINE 50 mg/ml Inj IVP PRN ×4 (06:37→21:30)
[2017-04-22 07:25] LABS: BASO # 0.1 K/uL (0.0-0.2); BASO % 0.7 % (0.0-2.0); EOS # 0.4 K/uL (0.0-0.7); EOS % 3.5 % (0.0-4.0); HEMATOCRIT 25.4 % (34.0-47.0); LYMPH # 2.2 K/uL (1.0-4.3); LYMPH % 21.6 % (20.0-40.0); MEAN CELL VOLUME 99.4 fL (81.0-99.0); MEAN CORPUSCULAR HEMOGLOBIN 32.3 pg (27.0-31.0); MEAN CORPUSCULAR HGB CONC 32.5 g/dL (33.0-37.0); MEAN PLATELET VOLUME 8.9 fL (7.2-11.7); MONO # 0.8 K/uL (0.0-0.8); MONO % 7.7 % (0.0-10.0); NRBC % 0.3 % (0.0-2.0); RED CELL DISTRIBUTION WIDTH 22.8 % (11.5-14.5); WHITE BLOOD COUNT 10.1 K/uL (4.8-10.8)
[2017-04-22 07:53] LABS: BILIRUBIN,TOTAL 0.7 mg/dL (0.2-1.3); CALCIUM 8.8 mg/dl (8.6-10.4); POTASSIUM 5.2 mmol/L (3.6-5.2); TOTAL PROTEIN 6.3 g/dL (6.3-8.3)
[2017-04-22] MEDS: (Novolin R) Insulin Human Regular 100 units/ml vial SC SCH ×4 (08:30→21:39)
[2017-04-22] MEDS: Multivitamin Vitamin B Complex (Nephro-Vite) Tab PO SCH (08:32)
[2017-04-22] MEDS: Saccharomyces Boulardi 250 mg Cap PO SCH ×3 (10:49→17:26)
--- NOTE | 2017-04-22 11:40 | CP.PCM.PN ---
Subjective - Date & Time of Evaluation Date of Evaluation: 04/22/17 Time of Evaluation: 11:36 - Subjective Subjective: stable dialysis 04/20 BP controlled without meds vascular calcifications noted on XRs ileostomy functioning left foot lesions same doing PTx Objective - Vital Signs/Intake and Output Vital Signs (last 24 hours): Temp Pulse Resp BP Pulse Ox 98.3 F 102 H 20 118/64 99 04/22/17 09:25 04/22/17 09:25 04/22/17 09:25 04/22/17 09:25 04/22/17 09:25 Intake and Output: 04/22/17 04/22/17 06:59 18:59 Intake Total 450 350 Output Total 605 505 Balance -155 -155 - Medications Medications: Current Medications Acetaminophen (Tylenol 325mg Tab) 650 mg PO Q8H [facility] Last Admin: 04/22/17 08:32 Dose: 650 mg Acyclovir (Zovirax 5% Oint) 1 gm EXT Q3H [facility] Last Admin: 04/22/17 10:51 Dose: Not Given Aspirin (Ecotrin) 81 mg PO DAILY [facility] Last Admin: 04/22/17 10:49 Dose: 81 mg Clopidogrel Bisulfate (Plavix) 75 mg PO DAILY [facility] Last Admin: 04/22/17 10:49 Dose: 75 mg Diphenhydramine HCl (Benadryl) 25 mg IVP Q5H PRN PRN Reason: Itching / Pruritus Last Admin: 04/22/17 06:37 Dose: 25 mg Epoetin Alec (Procrit) 10,000 unit IV TuThSa [facility] Last Admin: 04/20/17 16:18 Dose: 10,000 unit Famotidine (Pepcid) 20 mg PO DAILY [facility] Last Admin: 04/22/17 10:51 Dose: 20 mg Gabapentin (Neurontin) 100 mg PO QPM [facility] Last Admin: 04/21/17 18:52 Dose: 100 mg Hydromorphone HCl (Dilaudid) 1 mg IVP Q5H PRN PRN Reason: Pain, severe (8-10) Last Admin: 04/22/17 06:37 Dose: 1 mg Meropenem 500 mg/ Sodium (Chloride) 50 mls @ 100 mls/hr IVPB Q12H [facility] Last Admin: 04/22/17 05:27 Dose: 100 mls/hr Insulin Glargine (Lantus) 10 unit SC HS [facility] Last Admin: 04/21/17 21:13 Dose: 10 units Insulin Human Regular (Novolin R) 0 unit SC ACHS [facility] PRN Reason: Protocol Last Admin: 04/22/17 08:30 Dose: 1 unit Ondansetron HCl (Zofran Inj) 4 mg IVP Q4 PRN PRN Reason: Nausea/Vomiting Saccharomyces Boulardii (Florastor) 250 mg PO TID [facility] Last Admin: 04/22/17 10:49 Dose: 250 mg Vitamin B Complex/Vit C/Folic Acid (Nephro-Cony) 1 tab PO 0800 [facility] Last Admin: 04/22/17 08:32 Dose: 1 tab - Labs Labs: 04/22/17 06:59 04/22/17 06:59 PT 11.8 SECONDS (9.7-12.2) 04/15/17 17:09 INR 1.0 04/15/17 17:09 APTT 34 SECONDS (21-34) 04/15/17 17:09 - Constitutional Appears: No Acute Distress, Chronically Ill - Head Exam Head Exam: ATRAUMATIC, NORMAL INSPECTION - Eye Exam Eye Exam: EOMI, Normal appearance - Neck Exam Neck Exam: Normal Inspection. absent: Tenderness - Respiratory Exam Respiratory Exam: Clear to Ausculation Bilateral, NORMAL BREATHING PATTERN - Cardiovascular Exam Cardiovascular Exam: REGULAR RHYTHM, +S1 - GI/Abdominal Exam GI & Abdominal Exam: Soft. absent: Tenderness - Extremities Exam Extremities Exam: Calf Tenderness, Tenderness - Neurological Exam Neurological Exam: Alert, CN II-XII Intact - Skin Skin Exam: Dry, Warm Assessment and Plan (1) Type 1 diabetes mellitus with diabetic nephropathy Status: Acute (2) Gangrene of right foot Status: Acute (3) End stage renal disease Status: Acute (4) Fecal impaction Status: Acute (5) CHF (congestive heart failure) Status: Acute - Assessment and Plan (Free Text) Plan: continue dialysis TTS no BP meds recheck PTH, phos vascular calcifications might preclude arm vascular access to check if sec hyperparathyroidism needs further rx
--- NOTE | 2017-04-22 16:35 | CP.PCM.PN ---
Subjective - Date & Time of Evaluation Date of Evaluation: 04/22/17 Time of Evaluation: 15:30 - Subjective Subjective: Podiatry Progress Note- Dr. Ordonez 51 yo female pt seen at bedside today regarding left heel wound. Pt seen resting comfortably in bed at time of visit. Denies any acute overnight events. Does complain of pain to the left heel, but pain medication helping, denies f/n/ v/c/sob/cp. Has been working with PT. Keeping left foot elevated and off bed, offloading boots in place. Objective - Vital Signs/Intake and Output Vital Signs (last 24 hours): Temp Pulse Resp BP Pulse Ox 98 F 106 H 20 123/71 100 04/22/17 16:22 04/22/17 16:22 04/22/17 16:22 04/22/17 16:22 04/22/17 16:22 Intake and Output: 04/22/17 04/22/17 06:59 18:59 Intake Total 450 710 Output Total 605 980 Balance -155 -270 - Medications Medications: Current Medications Acetaminophen (Tylenol 325mg Tab) 650 mg PO Q8H [facility] Last Admin: 04/22/17 08:32 Dose: 650 mg Acyclovir (Zovirax 5% Oint) 1 gm EXT Q3H [facility] Last Admin: 04/22/17 10:51 Dose: Not Given Aspirin (Ecotrin) 81 mg PO DAILY [facility] Last Admin: 04/22/17 10:49 Dose: 81 mg Clopidogrel Bisulfate (Plavix) 75 mg PO DAILY [facility] Last Admin: 04/22/17 10:49 Dose: 75 mg Diphenhydramine HCl (Benadryl) 25 mg IVP Q5H PRN PRN Reason: Itching / Pruritus Last Admin: 04/22/17 11:40 Dose: 25 mg Epoetin Alec (Procrit) 10,000 unit IV TuThSa [facility] Last Admin: 04/20/17 16:18 Dose: 10,000 unit Famotidine (Pepcid) 20 mg PO DAILY [facility] Last Admin: 04/22/17 10:51 Dose: 20 mg Gabapentin (Neurontin) 100 mg PO QPM [facility] Last Admin: 04/21/17 18:52 Dose: 100 mg Hydromorphone HCl (Dilaudid) 1 mg IVP Q5H PRN PRN Reason: Pain, severe (8-10) Last Admin: 04/22/17 11:41 Dose: 1 mg Meropenem 500 mg/ Sodium (Chloride) 50 mls @ 100 mls/hr IVPB Q12H [facility] Last Admin: 04/22/17 05:27 Dose: 100 mls/hr Insulin Glargine (Lantus) 10 unit SC HS [facility] Last Admin: 04/21/17 21:13 Dose: 10 units Insulin Human Regular (Novolin R) 0 unit SC ACHS [facility] PRN Reason: Protocol Last Admin: 04/22/17 11:42 Dose: 3 unit Ondansetron HCl (Zofran Inj) 4 mg IVP Q4 PRN PRN Reason: Nausea/Vomiting Saccharomyces Boulardii (Florastor) 250 mg PO TID [facility] Last Admin: 04/22/17 14:15 Dose: 250 mg Vitamin B Complex/Vit C/Folic Acid (Nephro-Cony) 1 tab PO 0800 [facility] Last Admin: 04/22/17 08:32 Dose: 1 tab - Labs Labs: 04/22/17 06:59 04/22/17 06:59 PT 11.8 SECONDS (9.7-12.2) 04/15/17 17:09 INR 1.0 04/15/17 17:09 APTT 34 SECONDS (21-34) 04/15/17 17:09 - Constitutional Appears: Non-toxic, No Acute Distress - Extremities Exam Additional comments: Left lower extremity exam: Vasc: DP & PT pules are non-palpable, CFT > 4 seconds to all digits, skin temperature runs cool to cool from proximal to distal, no pedal edema Derm: unstageable pressure ulceration noted to the left heel measuring approximately 4 cm by 1 cm, wound is dry, no signs infection eschar present to medial aspect left hallux, duskiness noted to third digit circumferentially Neuro: gross pedal sensation is diminished Ortho: + tenderness to palp heel - Neurological Exam Neurological Exam: Alert, Awake, Oriented x3 - Psychiatric Exam Psychiatric exam: Normal Affect, Normal Mood Assessment and Plan - Assessment and Plan (Free Text) Assessment: 51 year old female with 1) unstageable ulceration of left heel 2/2 pressure, 2) ischemic changes to left hallux and left 3rd digit 2/2 PAD Plan: Pt S&E at bedside Plan discussed with attending Dr. Ordonez Chart, labs, vitals reviewed Left foot appears clinically same, however prognosis remains poor for limb salvage Addressed these concerns with patient c/w offloading boot left foot, allowed to dangle left foot intermittently. No dressings required. Podiatry will monitor
--- NOTE | 2017-04-22 19:11 | CP.PCM.PN ---
Subjective - Date & Time of Evaluation Date of Evaluation: 04/22/17 Time of Evaluation: 18:52 - Subjective Subjective: Patient today did physical therapy. She was slightly feeling happy today. And she is also feeling stronger today. Pain is less. The abdominal wound is healing. The left leg pain still noted. Receiving pain medication Objective - Vital Signs/Intake and Output Vital Signs (last 24 hours): Temp Pulse Resp BP Pulse Ox 98 F 106 H 20 123/71 100 04/22/17 16:22 04/22/17 16:22 04/22/17 16:22 04/22/17 16:22 04/22/17 16:22 Intake and Output: 04/22/17 04/22/17 06:59 18:59 Intake Total 450 710 Output Total 605 980 Balance -155 -270 - Medications Medications: Current Medications Acetaminophen (Tylenol 325mg Tab) 650 mg PO Q8H [facility] Last Admin: 04/22/17 17:25 Dose: 650 mg Acyclovir (Zovirax 5% Oint) 1 gm EXT Q3H [facility] Last Admin: 04/22/17 10:51 Dose: Not Given Aspirin (Ecotrin) 81 mg PO DAILY [facility] Last Admin: 04/22/17 10:49 Dose: 81 mg Clopidogrel Bisulfate (Plavix) 75 mg PO DAILY [facility] Last Admin: 04/22/17 10:49 Dose: 75 mg Diphenhydramine HCl (Benadryl) 25 mg IVP Q5H PRN PRN Reason: Itching / Pruritus Last Admin: 04/22/17 16:40 Dose: 25 mg Epoetin Alec (Procrit) 10,000 unit IV TuThSa [facility] Last Admin: 04/20/17 16:18 Dose: 10,000 unit Famotidine (Pepcid) 20 mg PO DAILY [facility] Last Admin: 04/22/17 10:51 Dose: 20 mg Gabapentin (Neurontin) 100 mg PO QPM [facility] Last Admin: 04/22/17 17:25 Dose: 100 mg Hydromorphone HCl (Dilaudid) 1 mg IVP Q5H PRN PRN Reason: Pain, severe (8-10) Last Admin: 04/22/17 16:34 Dose: 1 mg Meropenem 500 mg/ Sodium (Chloride) 50 mls @ 100 mls/hr IVPB Q12H [facility] Last Admin: 04/22/17 16:44 Dose: 100 mls/hr Insulin Glargine (Lantus) 10 unit SC HS [facility] Last Admin: 04/21/17 21:13 Dose: 10 units Insulin Human Regular (Novolin R) 0 unit SC ACHS [facility] PRN Reason: Protocol Last Admin: 04/22/17 16:41 Dose: Not Given Ondansetron HCl (Zofran Inj) 4 mg IVP Q4 PRN PRN Reason: Nausea/Vomiting Saccharomyces Boulardii (Florastor) 250 mg PO TID [facility] Last Admin: 04/22/17 17:26 Dose: 250 mg Vitamin B Complex/Vit C/Folic Acid (Nephro-Cony) 1 tab PO 0800 [facility] Last Admin: 04/22/17 08:32 Dose: 1 tab - Labs Labs: 04/22/17 06:59 04/22/17 06:59 PT 11.8 SECONDS (9.7-12.2) 04/15/17 17:09 INR 1.0 04/15/17 17:09 APTT 34 SECONDS (21-34) 04/15/17 17:09 Assessment and Plan (1) Gangrene of right foot Status: Acute
[2017-04-22] MEDS: (Lantus) Insulin Glargine, Recombinant SC SCH (22:45)
[2017-04-23] MEDS: Acyclovir 5% Oint (15 gm) EXT SCH ×8 (01:00→23:08)
[2017-04-23] MEDS: DiphenhydrAMINE 50 mg/ml Inj IVP PRN ×4 (02:45→23:02)
[2017-04-23] MEDS: HYDROmorphone 1 mg/ml ISec IVP PRN ×3 (02:45→21:21)
[2017-04-23] MEDS: Meropenem 500 MG in Sodium Chloride 0.9% 50 ML IVPB SCH ×2 (04:45→17:02)
[2017-04-23] MEDS: (Novolin R) Insulin Human Regular 100 units/ml vial SC SCH ×4 (08:13→22:58)
[2017-04-23] MEDS: Multivitamin Vitamin B Complex (Nephro-Vite) Tab PO SCH (08:13)
--- NOTE | 2017-04-23 08:56 | CP.PCM.PN ---
Subjective - Date & Time of Evaluation Date of Evaluation: 04/23/17 Time of Evaluation: 07:00 - Subjective Subjective: GENERAL SURGERY PROGRESS NOTE FOR DR. SANTIAGO Patient seen and examined at bedside. Patient states that she is eating well and tolerating her regular diet. She denies nausea or vomiting. Ileostomy bag with liquid stool and gas. Packing was removed. Patient had physical therapy yesterday. Objective - Vital Signs/Intake and Output Vital Signs (last 24 hours): Temp Pulse Resp BP Pulse Ox 98.2 F 102 H 20 126/61 95 04/23/17 00:00 04/23/17 00:00 04/23/17 00:00 04/23/17 00:00 04/23/17 00:00 Intake and Output: 04/23/17 04/23/17 06:59 18:59 Intake Total 990 Output Total 1300 Balance -310 - Medications Medications: Current Medications Acetaminophen (Tylenol 325mg Tab) 650 mg PO Q8H [facility] Last Admin: 04/23/17 01:00 Dose: Not Given Acyclovir (Zovirax 5% Oint) 1 gm EXT Q3H [facility] Last Admin: 04/23/17 08:15 Dose: 1 applic Aspirin (Ecotrin) 81 mg PO DAILY [facility] Last Admin: 04/22/17 10:49 Dose: 81 mg Clopidogrel Bisulfate (Plavix) 75 mg PO DAILY [facility] Last Admin: 04/22/17 10:49 Dose: 75 mg Diphenhydramine HCl (Benadryl) 25 mg IVP Q5H PRN PRN Reason: Itching / Pruritus Last Admin: 04/23/17 07:52 Dose: 25 mg Epoetin Alec (Procrit) 10,000 unit IV TuThSa [facility] Last Admin: 04/20/17 16:18 Dose: 10,000 unit Famotidine (Pepcid) 20 mg PO DAILY [facility] Last Admin: 04/22/17 10:51 Dose: 20 mg Gabapentin (Neurontin) 100 mg PO QPM [facility] Last Admin: 04/22/17 17:25 Dose: 100 mg Hydromorphone HCl (Dilaudid) 1 mg IVP Q5H PRN PRN Reason: Pain, severe (8-10) Last Admin: 04/23/17 07:52 Dose: 1 mg Meropenem 500 mg/ Sodium (Chloride) 50 mls @ 100 mls/hr IVPB Q12H [facility] Last Admin: 04/23/17 04:45 Dose: 100 mls/hr Insulin Glargine (Lantus) 10 unit SC HS [facility] Last Admin: 04/22/17 22:45 Dose: 5 units Insulin Human Regular (Novolin R) 0 unit SC ACHS [facility] PRN Reason: Protocol Last Admin: 04/23/17 08:13 Dose: 1 unit Ondansetron HCl (Zofran Inj) 4 mg IVP Q4 PRN PRN Reason: Nausea/Vomiting Saccharomyces Boulardii (Florastor) 250 mg PO TID [facility] Last Admin: 04/22/17 17:26 Dose: 250 mg Vitamin B Complex/Vit C/Folic Acid (Nephro-Cony) 1 tab PO 0800 [facility] Last Admin: 04/23/17 08:13 Dose: 1 tab - Labs Labs: 04/22/17 06:59 04/22/17 06:59 PT 11.8 SECONDS (9.7-12.2) 04/15/17 17:09 INR 1.0 04/15/17 17:09 APTT 34 SECONDS (21-34) 04/15/17 17:09 - Constitutional Appears: Non-toxic, No Acute Distress, Chronically Ill - Head Exam Head Exam: ATRAUMATIC, NORMAL INSPECTION - Respiratory Exam Respiratory Exam: NORMAL BREATHING PATTERN. absent: Respiratory Distress - Cardiovascular Exam Cardiovascular Exam: Tachycardia (mild), +S1, +S2 - GI/Abdominal Exam GI & Abdominal Exam: Soft. absent: Distended, Firm, Guarding, Rigid, Tenderness , Rebound Additional comments: No more purulent drainage from superior portion of incision Packing removed Roel drain in place at left abdomen Brown liquid stool in ileostomy bag at right abdomen - Neurological Exam Neurological Exam: Alert, Awake - Psychiatric Exam Psychiatric exam: Normal Affect, Normal Mood - Skin Skin Exam: Dry, Normal Color, Warm Assessment and Plan - Assessment and Plan (Free Text) Assessment: 51 year old female with PMHx of PVD, DM, HTN, ESRD previously on PD, now s/p subtotal colectomy with ileostomy POD#27, right BKA POD#19 - Podiatry following for left heel pressure ulcer - Tolerating renal dialysis/CCD diet - Encouraged PT, and IS use - Packing removed and dressing changed - Patient refused suture removal - On Merrem per ID - Per Dr. Macdonald - recommend AV access. - Vein mapping ordered on 04/17 - Discussed plan with Dr. Eduardo Chin PGY-3
[2017-04-23] MEDS: Saccharomyces Boulardi 250 mg Cap PO SCH ×3 (09:49→17:34)
[2017-04-23 11:05] LABS: POTASSIUM 6.7 mmol/L (3.6-5.2)
[2017-04-23 11:15] LABS: BILIRUBIN,TOTAL 0.7 mg/dL (0.2-1.3); CALCIUM 9.1 mg/dl (8.6-10.4); PHOSPHOROUS 4.2 mg/dL (2.5-4.5); TOTAL PROTEIN 6.7 g/dL (6.3-8.3)
--- NOTE | 2017-04-23 11:38 | CP.PCM.PN ---
Subjective - Date & Time of Evaluation Date of Evaluation: 04/23/17 Time of Evaluation: 11:35 - Subjective Subjective: pt seen and examined c/o pain in rt foot c/o itching c/o abdominal pain c/o weakness ostomy functioning. no chest pain sob dizziness fevers chills rash nausea vomiting high K noted. Objective - Vital Signs/Intake and Output Vital Signs (last 24 hours): Temp Pulse Resp BP Pulse Ox 98 F 109 H 18 179/93 H 95 04/23/17 10:30 04/23/17 10:30 04/23/17 10:30 04/23/17 10:40 04/23/17 00:00 Intake and Output: 04/23/17 04/23/17 06:59 18:59 Intake Total 990 Output Total 1300 Balance -310 - Medications Medications: Current Medications Acetaminophen (Tylenol 325mg Tab) 650 mg PO Q8H [facility] Last Admin: 04/23/17 08:49 Dose: Not Given Acyclovir (Zovirax 5% Oint) 1 gm EXT Q3H [facility] Last Admin: 04/23/17 10:18 Dose: Not Given Aspirin (Ecotrin) 81 mg PO DAILY [facility] Last Admin: 04/23/17 09:49 Dose: 81 mg Clopidogrel Bisulfate (Plavix) 75 mg PO DAILY [facility] Last Admin: 04/23/17 09:49 Dose: 75 mg Diphenhydramine HCl (Benadryl) 25 mg IVP Q5H PRN PRN Reason: Itching / Pruritus Last Admin: 04/23/17 07:52 Dose: 25 mg Epoetin Alec (Procrit) 10,000 unit IV TuThSa [facility] Last Admin: 04/20/17 16:18 Dose: 10,000 unit Famotidine (Pepcid) 20 mg PO DAILY [facility] Last Admin: 04/23/17 09:49 Dose: 20 mg Gabapentin (Neurontin) 100 mg PO QPM [facility] Last Admin: 04/22/17 17:25 Dose: 100 mg Heparin Sodium (Porcine) (Heparin) 3,700 units IVP TTS [facility] Hydromorphone HCl (Dilaudid) 1 mg IVP Q5H PRN PRN Reason: Pain, severe (8-10) Last Admin: 04/23/17 07:52 Dose: 1 mg Meropenem 500 mg/ Sodium (Chloride) 50 mls @ 100 mls/hr IVPB Q12H [facility] Last Admin: 04/23/17 04:45 Dose: 100 mls/hr Insulin Glargine (Lantus) 10 unit SC HS [facility] Last Admin: 04/22/17 22:45 Dose: 5 units Insulin Human Regular (Novolin R) 0 unit SC ACHS [facility] PRN Reason: Protocol Last Admin: 04/23/17 08:13 Dose: 1 unit Ondansetron HCl (Zofran Inj) 4 mg IVP Q4 PRN PRN Reason: Nausea/Vomiting Saccharomyces Boulardii (Florastor) 250 mg PO TID [facility] Last Admin: 04/23/17 09:49 Dose: 250 mg Vitamin B Complex/Vit C/Folic Acid (Nephro-Cony) 1 tab PO 0800 [facility] Last Admin: 04/23/17 08:13 Dose: 1 tab - Labs Labs: 04/22/17 06:59 04/23/17 08:50 PT 11.8 SECONDS (9.7-12.2) 04/15/17 17:09 INR 1.0 04/15/17 17:09 APTT 34 SECONDS (21-34) 04/15/17 17:09 - Constitutional Appears: Non-toxic, No Acute Distress, Chronically Ill - Head Exam Head Exam: NORMAL INSPECTION - Eye Exam Eye Exam: Normal appearance - ENT Exam ENT Exam: Mucous Membranes Moist, Normal Exam - Neck Exam Neck Exam: Normal Inspection - Respiratory Exam Respiratory Exam: Clear to Ausculation Bilateral, NORMAL BREATHING PATTERN - Cardiovascular Exam Cardiovascular Exam: REGULAR RHYTHM, RRR - GI/Abdominal Exam GI & Abdominal Exam: Distended (ostomy), Soft - Extremities Exam Additional comments: rt leg amputee, in cast Assessment and Plan (1) Gangrene of right foot Status: Acute (2) Anemia Status: Acute (3) Diabetes mellitus Status: Acute (4) ESRD on peritoneal dialysis Status: Acute (5) Hyperkalemia Status: Acute (6) Hypertension Status: Acute - Assessment and Plan (Free Text) Assessment: maintain hd tts phos / ca at goal bp controlled rehab
[2017-04-23] MEDS: Epoetin Alfa 10,000 unit/ml Dialysis IV SCH (11:59)
[2017-04-23] MEDS ORDERED: HYDROmorphone 1 mg/ml ISec IVP PRN (14:26)
--- NOTE | 2017-04-23 17:00 | CP.PCM.PN ---
Subjective - Date & Time of Evaluation Date of Evaluation: 04/23/17 Time of Evaluation: 16:59 - Subjective Subjective: CLEARED FOR D/C TOMORROW PER DR. CARTER. FOR [facility] 04/24 AFTER HD IF STABLE. WILL BE FOLLOWED BY DR. José Miguel EVERETT AND HE HAS AGREED TO SEE PT THERE. PAMELA CLEARED PT FOR D/C TO [facility] AND SHE IS TO F/U WITH HIM IN 2 WEEKS IN THE OFFICE. LOCAL WOUND CARE TO CONTINUE. IV ABX DURATION PENDING AT THIS TIME; NO REPLY FROM DR. MONTES YET FOR DURATION. TO BE F/U BY [employer]. Objective - Vital Signs/Intake and Output Vital Signs (last 24 hours): Temp Pulse Resp BP Pulse Ox 98 F 109 H 18 121/72 95 04/23/17 10:30 04/23/17 10:30 04/23/17 10:30 04/23/17 13:40 04/23/17 00:00 Intake and Output: 04/23/17 04/23/17 06:59 18:59 Intake Total 990 Output Total 1300 Balance -310 - Medications Medications: Current Medications Acetaminophen (Tylenol 325mg Tab) 650 mg PO Q8H [facility] Last Admin: 04/23/17 16:30 Dose: Not Given Acyclovir (Zovirax 5% Oint) 1 gm EXT Q3H [facility] Last Admin: 04/23/17 16:30 Dose: Not Given Aspirin (Ecotrin) 81 mg PO DAILY [facility] Last Admin: 04/23/17 09:49 Dose: 81 mg Clopidogrel Bisulfate (Plavix) 75 mg PO DAILY [facility] Last Admin: 04/23/17 09:49 Dose: 75 mg Diphenhydramine HCl (Benadryl) 25 mg IVP Q5H PRN PRN Reason: Itching / Pruritus Last Admin: 04/23/17 07:52 Dose: 25 mg Epoetin Alec (Procrit) 10,000 unit IV TuThSa [facility] Last Admin: 04/23/17 11:59 Dose: 10,000 unit Famotidine (Pepcid) 20 mg PO DAILY [facility] Last Admin: 04/23/17 09:49 Dose: 20 mg Gabapentin (Neurontin) 100 mg PO QPM [facility] Last Admin: 04/22/17 17:25 Dose: 100 mg Heparin Sodium (Porcine) (Heparin) 3,700 units IVP TTS [facility] Last Admin: 04/23/17 11:57 Dose: 3,700 units Hydromorphone HCl (Dilaudid) 1 mg IVP Q5H PRN PRN Reason: Pain, severe (8-10) Meropenem 500 mg/ Sodium (Chloride) 50 mls @ 100 mls/hr IVPB Q12H [facility] Last Admin: 04/23/17 04:45 Dose: 100 mls/hr Insulin Glargine (Lantus) 10 unit SC HS [facility] Last Admin: 04/22/17 22:45 Dose: 5 units Insulin Human Regular (Novolin R) 0 unit SC ACHS [facility] PRN Reason: Protocol Last Admin: 04/23/17 11:40 Dose: Not Given Ondansetron HCl (Zofran Inj) 4 mg IVP Q4 PRN PRN Reason: Nausea/Vomiting Saccharomyces Boulardii (Florastor) 250 mg PO TID [facility] Last Admin: 04/23/17 14:00 Dose: Not Given Vitamin B Complex/Vit C/Folic Acid (Nephro-Cony) 1 tab PO 0800 [facility] Last Admin: 04/23/17 08:13 Dose: 1 tab - Labs Labs: 04/22/17 06:59 04/23/17 08:50 PT 11.8 SECONDS (9.7-12.2) 04/15/17 17:09 INR 1.0 04/15/17 17:09 APTT 34 SECONDS (21-34) 04/15/17 17:09
--- NOTE | 2017-04-23 21:18 | CP.PCM.PN ---
Subjective - Date & Time of Evaluation Date of Evaluation: 04/23/17 Time of Evaluation: 21:16 - Subjective Subjective: still having pain c/o pain over the left leg eating ok no chest pain no nausea Objective - Vital Signs/Intake and Output Vital Signs (last 24 hours): Temp Pulse Resp BP Pulse Ox 98.3 F 98 H 20 126/67 97 04/23/17 15:30 04/23/17 15:30 04/23/17 15:30 04/23/17 15:30 04/23/17 15:30 Intake and Output: Had HD today - Medications Medications: Current Medications Acetaminophen (Tylenol 325mg Tab) 650 mg PO Q8H [facility] Last Admin: 04/23/17 20:06 Dose: 650 mg Acyclovir (Zovirax 5% Oint) 1 gm EXT Q3H [facility] Last Admin: 04/23/17 20:09 Dose: 1 applic Aspirin (Ecotrin) 81 mg PO DAILY [facility] Last Admin: 04/23/17 09:49 Dose: 81 mg Clopidogrel Bisulfate (Plavix) 75 mg PO DAILY [facility] Last Admin: 04/23/17 09:49 Dose: 75 mg Diphenhydramine HCl (Benadryl) 25 mg IVP Q5H PRN PRN Reason: Itching / Pruritus Last Admin: 04/23/17 17:26 Dose: 25 mg Epoetin Alec (Procrit) 10,000 unit IV TuThSa [facility] Last Admin: 04/23/17 11:59 Dose: 10,000 unit Famotidine (Pepcid) 20 mg PO DAILY [facility] Last Admin: 04/23/17 09:49 Dose: 20 mg Gabapentin (Neurontin) 100 mg PO Q12 [facility] Heparin Sodium (Porcine) (Heparin) 3,700 units IVP TTS [facility] Last Admin: 04/23/17 11:57 Dose: 3,700 units Hydromorphone HCl (Dilaudid) 0.5 mg IVP Q4 PRN PRN Reason: Pain, severe (8-10) Meropenem 500 mg/ Sodium (Chloride) 50 mls @ 100 mls/hr IVPB Q12H [facility] Last Admin: 04/23/17 17:02 Dose: 100 mls/hr Insulin Glargine (Lantus) 10 unit SC HS [facility] Last Admin: 04/22/17 22:45 Dose: 5 units Insulin Human Regular (Novolin R) 0 unit SC ACHS GUILLERMO PRN Reason: Protocol Last Admin: 04/23/17 17:26 Dose: Not Given Ondansetron HCl (Zofran Inj) 4 mg IVP Q4 PRN PRN Reason: Nausea/Vomiting Saccharomyces Boulardii (Florastor) 250 mg PO TID [facility] Last Admin: 04/23/17 17:34 Dose: 250 mg Vitamin B Complex/Vit C/Folic Acid (Nephro-Cony) 1 tab PO 0800 [facility] Last Admin: 04/23/17 08:13 Dose: 1 tab - Labs Labs: 04/22/17 06:59 04/23/17 08:50 PT 11.8 SECONDS (9.7-12.2) 04/15/17 17:09 INR 1.0 04/15/17 17:09 APTT 34 SECONDS (21-34) 04/15/17 17:09 Assessment and Plan (1) Gangrene of right foot Assessment & Plan: pt with diabetic complication esrd PVd with gangrene legs s/p rt BKA left foot ischemia noted s/p colectomy for impending colon rupture with colitis and constipation esrd HD poor prognosis Status: Acute
[2017-04-23] MEDS: (Lantus) Insulin Glargine, Recombinant SC SCH (22:57)
[2017-04-24] MEDS: Acyclovir 5% Oint (15 gm) EXT SCH ×6 (01:30→17:06)
[2017-04-24] MEDS: HYDROmorphone 1 mg/ml ISec IVP PRN ×5 (01:44→17:30)
[2017-04-24] MEDS: DiphenhydrAMINE 50 mg/ml Inj IVP PRN ×3 (04:00→17:42)
[2017-04-24] MEDS: Meropenem 500 MG in Sodium Chloride 0.9% 50 ML IVPB SCH ×2 (04:10→17:23)
[2017-04-24] MEDS: Multivitamin Vitamin B Complex (Nephro-Vite) Tab PO SCH (08:18)
[2017-04-24] MEDS: (Novolin R) Insulin Human Regular 100 units/ml vial SC SCH ×3 (08:19→17:06)
--- NOTE | 2017-04-24 09:17 | CP.PCM.DIS ---
Provider - Provider Date of Admission: 02/04/17 14:17 Attending physician: Rod Lord MD Diagnosis - Discharge Diagnosis (1) Gangrene of right foot Status: Acute Hospital Course - Lab Results Lab Results: Micro Results 04/13/17 20:00 Blood-Venous Blood Culture - Final NO GROWTH AFTER 5 DAYS 04/13/17 20:00 Blood-Venous Gram Stain - Final TEST NOT PERFORMED 04/14/17 22:01 Abdomen Gram Stain - Final 04/14/17 22:01 Abdomen Wound Culture - Final Klebsiella Oxytoca Citrobacter Diversus 04/11/17 08:30 Nose MRSA Culture - Final MRSA NOT DETECTED 04/01/17 03:33 Naris MRSA Culture (Admit) - Final MRSA NOT DETECTED 03/30/17 15:30 Naris MRSA Culture - Final MRSA NOT DETECTED 03/27/17 22:29 Nose MRSA Culture (Admit) - Final MRSA NOT DETECTED 02/27/17 12:25 Foot - Right Gram Stain - Final 02/27/17 12:25 Foot - Right Wound Culture - Final Serratia Marcescens Vancomycin Resistant E.faecium 02/17/17 15:18 Peritoneal Fluid Gram Stain - Final 02/17/17 15:18 Peritoneal Fluid Body Fluid Culture - Final NO GROWTH AFTER 4 DAYS 02/14/17 12:15 Blood-Thru Central Line Blood Culture - Final NO GROWTH AFTER 5 DAYS 02/14/17 12:15 Blood-Thru Central Line Gram Stain - Final TEST NOT PERFORMED 02/14/17 11:45 Blood-Thru Central Line Blood Culture - Final NO GROWTH AFTER 5 DAYS 02/14/17 11:45 Blood-Thru Central Line Gram Stain - Final TEST NOT PERFORMED 02/15/17 Unknown Foot - Right Gram Stain - Final 02/15/17 Unknown Foot - Right Wound Culture - Final Serratia Marcescens Vancomycin Resistant E.faecium 02/04/17 14:00 Blood-Venous Blood Culture - Final NO GROWTH AFTER 5 DAYS 02/04/17 14:00 Blood-Venous Gram Stain - Final 02/04/17 14:15 Blood-Venous Blood Culture - Final NO GROWTH AFTER 5 DAYS 02/04/17 14:15 Blood-Venous Gram Stain - Final TEST NOT PERFORMED 02/05/17 16:35 Naris MRSA Culture - Final MRSA NOT DETECTED 02/04/17 06:00 Naris MRSA Culture (Admit) - Final MRSA NOT DETECTED Most Recent Lab Values WBC 10.1 K/uL (4.8-10.8) 04/22/17 06:59 RBC 2.56 Mil/uL (3.80-5.20) L 04/22/17 06:59 Hgb 8.3 g/dL (11.0-16.0) L 04/22/17 06:59 Hct 25.4 % (34.0-47.0) L 04/22/17 06:59 MCV 99.4 fL (81.0-99.0) H 04/22/17 06:59 MCH 32.3 pg (27.0-31.0) H 04/22/17 06:59 MCHC 32.5 g/dL (33.0-37.0) L 04/22/17 06:59 RDW 22.8 % (11.5-14.5) H 04/22/17 06:59 Plt Count 275 K/uL (130-400) 04/22/17 06:59 MPV 8.9 fL (7.2-11.7) 04/22/17 06:59 Neut % (Auto) 66.5 % (50.0-75.0) 04/22/17 06:59 Lymph % (Auto) 21.6 % (20.0-40.0) 04/22/17 06:59 [place] % (Auto) 7.7 % (0.0-10.0) 04/22/17 06:59 Eos % (Auto) 3.5 % (0.0-4.0) 04/22/17 06:59 Baso % (Auto) 0.7 % (0.0-2.0) 04/22/17 06:59 Neut # 6.7 K/uL (1.8-7.0) 04/22/17 06:59 Lymph # 2.2 K/uL (1.0-4.3) 04/22/17 06:59 [place] # 0.8 K/uL (0.0-0.8) 04/22/17 06:59 Eos # 0.4 K/uL (0.0-0.7) 04/22/17 06:59 Baso # 0.1 K/uL (0.0-0.2) 04/22/17 06:59 Neutrophils % (Manual) 88 % (50-75) H 04/01/17 06:47 Band Neutrophils % 4 % (0-2) H 03/28/17 06:28 Lymphocytes % (Manual) 8 % (20-40) L 04/01/17 06:47 Monocytes % (Manual) 4 % (0-10) 04/01/17 06:47 Eosinophils % (Manual) 2 % (0-4) 03/31/17 13:49 Basophils % (Manual) 1 % (0-2) 03/29/17 08:04 Nucleated RBC % 1 % (0-0) H 04/01/17 06:47 Platelet Estimate Normal (NORMAL) 04/01/17 06:47 Large Platelets Present 03/28/17 06:28 Polychromasia Slight 04/01/17 06:47 Hypochromasia (manual) Slight 04/01/17 06:47 Poikilocytosis (manual Slight 03/28/17 06:28 Anisocytosis (manual) Slight 03/31/17 13:49 Microcytosis (manual) Slight 03/27/17 12:16 Macrocytosis (manual) Slight 02/20/17 07:12 Target Cells Slight 03/28/17 06:28 Ovalocytes Slight 03/29/17 08:04 Dana Cells Slight 03/28/17 06:28 ESR > 140 mm/hr (0-20) H 02/23/17 07:10 PT 11.8 SECONDS (9.7-12.2) 04/15/17 17:09 INR 1.0 04/15/17 17:09 APTT 34 SECONDS (21-34) 04/15/17 17:09 Sodium 131 mmol/L (132-148) L 04/23/17 08:50 Potassium 6.7 mmol/L (3.6-5.2) H* D 04/23/17 08:50 Chloride 101 mmol/L (98-107) 04/23/17 08:50 Carbon Dioxide 20 mmol/L (22-30) L 04/23/17 08:50 Anion Gap 18 (10-20) 04/23/17 08:50 BUN 42 mg/dL (7-17) H 04/23/17 08:50 Creatinine 9.0 mg/dL (0.7-1.2) H* D 04/23/17 08:50 Est GFR ( Amer) 6 04/23/17 08:50 Est GFR (Non-Af Amer) 5 04/23/17 08:50 POC Glucose (mg/dL) 191 mg/dL (65-110) H 04/24/17 07:15 Random Glucose 144 mg/dL (65-105) H 04/23/17 08:50 Lactic Acid 1.2 mmol/L (0.7-2.1) 03/27/17 17:13 Calcium 9.1 mg/dl (8.6-10.4) 04/23/17 08:50 Phosphorus 4.2 mg/dL (2.5-4.5) 04/23/17 08:50 Magnesium 1.7 mg/dL (1.6-2.3) 04/09/17 10:29 % Saturation 35 (20-55) 04/16/17 08:09 Ferritin 1430.0 ng/mL 04/16/17 08:09 Total Bilirubin 0.7 mg/dL (0.2-1.3) 04/23/17 08:50 AST 60 U/L (14-36) H D 04/23/17 08:50 ALT 43 U/L (9-52) 04/23/17 08:50 Alkaline Phosphatase 139 U/L (38-126) H 04/23/17 08:50 Total Creatine Kinase < 20 U/L (30-135) L 03/08/17 12:24 CK-MB (Mass) 0.78 ng/mL (0.0-3.38) 03/08/17 12:24 Troponin I, Quant < 0.0120 ng/mL (0.00-0.120) 03/08/17 12:24 Total Protein 6.7 g/dL (6.3-8.3) 04/23/17 08:50 Albumin 3.4 g/dL (3.5-5.0) L 04/23/17 08:50 Globulin 3.3 gm/dL (2.2-3.9) 04/23/17 08:50 Albumin/Globulin Ratio 1.0 (1.0-2.1) 04/23/17 08:50 Procalcitonin 2.05 NG/ML (0.19-0.49) H 04/09/17 10:29 Beta HCG, Quant < 2.39 mIU/ML 03/27/17 18:20 PTH Intact Whole Molec 251 pg/mL (14-64) H 04/02/17 06:20 Fluid Source Peritoneal/ascites 03/26/17 16:12 Fluid Appearance Clear (CLEAR) 03/26/17 16:12 Fluid WBC 298.0 /mm3 (0.0-300.0) 03/26/17 16:12 Fluid RBC 2.0 /mm3 (0.0-0.0) H 03/26/17 16:12 Fluid Tot Cell Count 100 (0-0) H 03/26/17 16:12 Fluid Neutrophils 92.0 % (0-0) H 03/26/17 16:12 Fluid Lymphocytes 2.0 % (0-0) H 03/26/17 16:12 Fld Monocyte/Macrophag 6 % (0-0) H 03/26/17 16:12 Fluid Comment 03/26/17 16:12 Vancomycin Trough 18.8 ug/mL (5.0-10.0) H 02/15/17 07:23 Random Vancomycin 28.27 ug/mL 02/18/17 07:05 C. difficile Ag & Toxin Negative (NEGATIVE) 04/15/17 21:24 Hep Bs Antigen Negative (NEGATIVE) 03/28/17 12:47 Hep Bs Antibody Positive (NEGATIVE) 03/28/17 12:47 Hep B Core IgM Ab Negative (NEGATIVE) 03/28/17 12:47 Hepatitis C Antibody Negative (NEGATIVE) 03/28/17 12:47 Blood Type O POSITIVE 04/04/17 09:27 Antibody Screen Negative 04/04/17 09:27 Crossmatch See Detail 04/04/17 09:27 Discharge Exam - Head Exam Head Exam: NORMAL INSPECTION Discharge Plan - Follow Up Plan Condition: STABLE Disposition: HOME/ ROUTINE Additional Instructions: PLACE UNDER THE SERVICE OF DR. José Miguel EVERETT WHILE AT [facility]----CALL UPON ARRIVAL FOR ADMITTING ORDERS AND BED ASSIGNMENT. CONTINUE MEDICATIONS PER THE MED REC FORM. CHANGES TO BE MADE BY DR. José Migule EVERETT. CONTINUE DIALYSIS SCHEDULED. PICC CARE PER FACILITY PROTOCOL TO FOLLOW UP WITH DR. SANTIAGO IN HIS OFFICE IN 2 WEEKS---PLEASE MAKE ALL ARRANGEMENTS FOR THIS FOLLOW UP VISIT. CONTINUE IV ANTIBIOTICS FOLLOWS PER DR. CRONIN: PODIATRY RECOMMENDATIONS: CONTINUE WITH offloading boot left foot, allowed to dangle left foot intermittently. WOUND CARE EVALUATION ONCE ARRIVES AT [facility]. FALL PRECAUTIONS PER FACILITY PROTOCOL. FOR FURTHER CONCERNS OR ORDERS, CONTACT DR. José Miguel EVERETT. Referrals: Sury Lugo MD [Staff Provider] - Merritt Macdonald MD [Staff Provider] - Kenneth Ordonez DPM [Doctor Podiatric Medicine] - Alfonso Cronin MD [Staff Provider] - Harman Santigao Jr., MD [Staff Provider] - Rod Lord MD [Staff Provider] -
[2017-04-24] MEDS: Saccharomyces Boulardi 250 mg Cap PO SCH ×3 (09:47→17:33)
[2017-04-24 12:03] LABS: BASO # 0.1 K/uL (0.0-0.2); BASO % 0.9 % (0.0-2.0); EOS # 0.3 K/uL (0.0-0.7); HEMATOCRIT 25.5 % (34.0-47.0); LYMPH # 2.1 K/uL (1.0-4.3); LYMPH % 19.7 % (20.0-40.0); MEAN CELL VOLUME 99.8 fL (81.0-99.0); MEAN CORPUSCULAR HEMOGLOBIN 32.2 pg (27.0-31.0); MEAN CORPUSCULAR HGB CONC 32.2 g/dL (33.0-37.0); MEAN PLATELET VOLUME 8.9 fL (7.2-11.7); MONO # 0.9 K/uL (0.0-0.8); MONO % 8.9 % (0.0-10.0); NRBC % 0.2 % (0.0-2.0); RED CELL DISTRIBUTION WIDTH 23.3 % (11.5-14.5); WHITE BLOOD COUNT 10.7 K/uL (4.8-10.8)
[2017-04-24 12:58] LABS: CALCIUM 8.4 mg/dl (8.6-10.4); POTASSIUM 5.1 mmol/L (3.6-5.2)
--- NOTE | 2017-04-24 14:09 | CP.PCM.PN ---
Subjective - Date & Time of Evaluation Date of Evaluation: 04/24/17 Time of Evaluation: 13:00 - Subjective Subjective: seen on HD 3 kg uf tentative d/c agitated due to pain, crying for medicine does not answer further questions, ROS cannot be obtained Objective - Vital Signs/Intake and Output Vital Signs (last 24 hours): Temp Pulse Resp BP Pulse Ox 98.4 F 102 H 20 130/77 98 04/24/17 08:48 04/24/17 08:48 04/24/17 08:48 04/24/17 08:48 04/24/17 08:48 Intake and Output: 04/24/17 04/24/17 06:59 18:59 Intake Total 990 Output Total 1050 Balance -60 - Medications Medications: Current Medications Acetaminophen (Tylenol 325mg Tab) 650 mg PO Q8H [facility] Last Admin: 04/24/17 08:18 Dose: Not Given Acyclovir (Zovirax 5% Oint) 1 gm EXT Q3H [facility] Last Admin: 04/24/17 13:32 Dose: Not Given Aspirin (Ecotrin) 81 mg PO DAILY [facility] Last Admin: 04/24/17 09:47 Dose: 81 mg Clopidogrel Bisulfate (Plavix) 75 mg PO DAILY [facility] Last Admin: 04/24/17 09:45 Dose: 75 mg Diphenhydramine HCl (Benadryl) 25 mg IVP Q5H PRN PRN Reason: Itching / Pruritus Last Admin: 04/24/17 09:46 Dose: 25 mg Epoetin Alec (Procrit) 10,000 unit IV TuThSa [facility] Last Admin: 04/23/17 11:59 Dose: 10,000 unit Famotidine (Pepcid) 20 mg PO DAILY [facility] Last Admin: 04/24/17 09:47 Dose: 20 mg Gabapentin (Neurontin) 100 mg PO Q12 [facility] Last Admin: 04/24/17 09:47 Dose: 100 mg Heparin Sodium (Porcine) (Heparin) 3,700 units IVP TTS [facility] Last Admin: 04/23/17 11:57 Dose: 3,700 units Hydromorphone HCl (Dilaudid) 0.5 mg IVP Q4 PRN PRN Reason: Pain, severe (8-10) Last Admin: 04/24/17 13:29 Dose: 0.5 mg Meropenem 500 mg/ Sodium (Chloride) 50 mls @ 100 mls/hr IVPB Q12H [facility] Last Admin: 04/24/17 04:10 Dose: 100 mls/hr Insulin Glargine (Lantus) 10 unit SC HS [facility] Last Admin: 04/23/17 22:57 Dose: 10 units Insulin Human Regular (Novolin R) 0 unit SC ACHS GUILLERMO PRN Reason: Protocol Last Admin: 04/24/17 12:20 Dose: Not Given Ondansetron HCl (Zofran Inj) 4 mg IVP Q4 PRN PRN Reason: Nausea/Vomiting Saccharomyces Boulardii (Florastor) 250 mg PO TID [facility] Last Admin: 04/24/17 13:32 Dose: Not Given Vitamin B Complex/Vit C/Folic Acid (Nephro-Cony) 1 tab PO 0800 [facility] Last Admin: 04/24/17 08:18 Dose: 1 tab - Labs Labs: 04/24/17 11:55 04/24/17 11:55 PT 11.8 SECONDS (9.7-12.2) 04/15/17 17:09 INR 1.0 04/15/17 17:09 APTT 34 SECONDS (21-34) 04/15/17 17:09 - Constitutional Appears: Confused, Chronically Ill - Head Exam Head Exam: ATRAUMATIC, NORMOCEPHALIC - Eye Exam Eye Exam: EOMI - ENT Exam ENT Exam: Mucous Membranes Moist - Respiratory Exam Respiratory Exam: NORMAL BREATHING PATTERN. absent: Respiratory Distress - Cardiovascular Exam Cardiovascular Exam: REGULAR RHYTHM. absent: Rubs - GI/Abdominal Exam GI & Abdominal Exam: Soft. 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
[2017-04-24] MEDS: Epoetin Alfa 10,000 unit/ml Dialysis IV SCH (14:58)
[2017-04-24 16:11] VITALS: TEMP 98.2
[2017-04-24 17:09] VITALS: BP 97/48; PULSE 94; RESP 17; O2SAT 98
== END 2017-04-24 21:59 | DRG 549 ==
LOC: C.ER 13:00 → C.9E 14:17 → C.5T 14:17 → EEVIPCON 14:17 → C.5T 14:43 → C.3T 14:43 → C.9I 18:38 → C.5T 02-05 17:04 → C.5S 02-06 09:20 → C.9I 03-27 19:41 → C.5S 03-30 14:54 → C.9I 03-31 21:21 → C.3T 04-11 22:00
PROVIDERS: ADMIT Internal Medicine; ATTEND Internal Medicine
PROC: 02PY33Z Removal of Infusion Device from Great Vessel, Percutaneous Approach (ICD-10-PCS; 2017-02-08)
PROC: 02HV33Z Insertion of Infusion Device into Superior Vena Cava, Percutaneous Approach (ICD-10-PCS; 2017-02-08)
PROC: 0Y6M0ZB Detachment at Right Foot, Partial 2nd Ray, Open Approach (ICD-10-PCS; 2017-02-12)
PROC: 0Y6M0ZC Detachment at Right Foot, Partial 3rd Ray, Open Approach (ICD-10-PCS; 2017-02-12)
PROC: 0Y6M0ZD Detachment at Right Foot, Partial 4th Ray, Open Approach (ICD-10-PCS; 2017-02-12)
PROC: 0Y6M0ZF Detachment at Right Foot, Partial 5th Ray, Open Approach (ICD-10-PCS; 2017-02-12)
PROC: 0Y6M0Z9 Detachment at Right Foot, Partial 1st Ray, Open Approach (ICD-10-PCS; principal; 2017-02-12 10:30)
PROC: 3E1M39Z Irrigation of Peritoneal Cavity using Dialysate, Percutaneous Approach (ICD-10-PCS; 2017-02-19)
PROC: 02HV33Z Insertion of Infusion Device into Superior Vena Cava, Percutaneous Approach (ICD-10-PCS; 2017-03-04)
PROC: 30233N1 Transfusion of Nonautologous Red Blood Cells into Peripheral Vein, Percutaneous Approach (ICD-10-PCS; 2017-03-06)
PROC: 0HBMXZZ Excision of Right Foot Skin, External Approach (ICD-10-PCS; 2017-03-13)
PROC: 05H533Z Insertion of Infusion Device into Right Subclavian Vein, Percutaneous Approach (ICD-10-PCS; 2017-03-27)
PROC: 0DBN0ZZ Excision of Sigmoid Colon, Open Approach (ICD-10-PCS; 2017-03-27 18:30)
PROC: 0Y6F0ZZ Detachment at Right Knee Region, Open Approach (ICD-10-PCS; 2017-04-04)
DX: I70.268 Atherosclerosis of native arteries of extremities with gangrene, other extremity (principal); A41.9 Sepsis, unspecified organism; R65.20 Severe sepsis without septic shock; I13.2 Hypertensive heart and chronic kidney disease with heart failure and with stage 5 chronic kidney disease, or end stage renal disease; J18.9 Pneumonia, unspecified organism; K56.699 Other intestinal obstruction unspecified as to partial versus complete obstruction; N18.6 End stage renal disease; K65.9 Peritonitis, unspecified; T80.219A Unspecified infection due to central venous catheter, initial encounter; E11.22 Type 2 diabetes mellitus with diabetic chronic kidney disease; E11.621 Type 2 diabetes mellitus with foot ulcer; I50.9 Heart failure, unspecified; L97.419 Non-pressure chronic ulcer of right heel and midfoot with unspecified severity; K56.41 Fecal impaction; E87.5 Hyperkalemia; T87.81 Dehiscence of amputation stump; D64.9 Anemia, unspecified; Z99.2 Dependence on renal dialysis; Z79.4 Long term (current) use of insulin; E78.00 Pure hypercholesterolemia, unspecified; F32.9 Major depressive disorder, single episode, unspecified; F41.9 Anxiety disorder, unspecified; F17.210 Nicotine dependence, cigarettes, uncomplicated; L98.499 Non-pressure chronic ulcer of skin of other sites with unspecified severity; Y83.5 Amputation of limb(s) as the cause of abnormal reaction of the patient, or of later complication, without mention of misadventure at the time of the procedure; B96.89 Other specified bacterial agents as the cause of diseases classified elsewhere; K63.89 Other specified diseases of intestine; I25.10 Atherosclerotic heart disease of native coronary artery without angina pectoris

== ENCOUNTER 2017-05-01 14:38 | Inpatient (IN) | payer OTHER ==
[2017-05-01 14:38] VITALS: BMI 28.3
--- NOTE | 2017-05-01 19:21 | C.PDOC ---
History Of Present Illness 51 y/o female presents to ED with complaints of colostomy drainage and to continue treatment receiving at [facility]. Patient states she was hospitalized last February and had multiple surgeries including BKA of right leg and Colostomy, patient was then sent to rehab for occupational therapy and had picc line given IV antibiotics and patient thought she was being heavily sedated. Patient felt uncomfortable and signed out AMA from rehab and came to ED for continuation of treatment. No other complaints at this time. Time Seen by Provider: 05/01/17 18:47 Chief Complaint (Nursing): Abdominal Pain History Per: Patient History/Exam Limitations: no limitations Onset/Duration Of Symptoms: Days Current Symptoms Are (Timing): Still Present Past Medical History Reviewed: Historical Data, Nursing Documentation, Vital Signs Vital Signs: Last Vital Signs Temp 98.8 F 05/01/17 15:23 Pulse 103 H 05/01/17 15:23 Resp 18 05/01/17 15:23 BP 120/74 05/01/17 15:23 Pulse Ox 100 05/01/17 21:21 - Medical History PMH: Anemia, Bronchitis, Diabetes, HTN, Hypercholesterolemia, Pneumonia, End Stage Renal Disease (PD), Chronic Kidney Disease Surgical History: - [facility] Procedures BYPASS RIGHT FEMORAL ARTERY TO POPLIT ART, OPEN APPROACH (10/26/16) CREATE CUTANPERITON FIST (12/30/14) DETACHMENT AT RIGHT FOOT, PARTIAL 1ST RAY, OPEN APPROACH (02/04/17) DETACHMENT AT RIGHT FOOT, PARTIAL 2ND RAY, OPEN APPROACH (02/04/17) DETACHMENT AT RIGHT FOOT, PARTIAL 3RD RAY, OPEN APPROACH (02/04/17) DETACHMENT AT RIGHT FOOT, PARTIAL 4TH RAY, OPEN APPROACH (02/04/17) DETACHMENT AT RIGHT FOOT, PARTIAL 5TH RAY, OPEN APPROACH (02/04/17) DETACHMENT AT RIGHT KNEE REGION, OPEN APPROACH (02/04/17) DILATION OF R COM ILIAC ART WITH INTRALUM DEV, PERC APPROACH (10/26/16) EXCISION OF RIGHT FOOT SKIN, EXTERNAL APPROACH (02/04/17) EXCISION OF SIGMOID COLON, OPEN APPROACH (02/04/17) FLUOROSCOPY OF LEFT HEART USING LOW OSMOLAR CONTRAST (10/26/16) FLUOROSCOPY OF MULT COR ART USING L OSM CONTRAST (10/26/16) HEMODIALYSIS (11/06/14) INSERTION OF INFUSION DEV INTO R SUBCLAV VEIN, PERC APPROACH (02/04/17) INSERTION OF INFUSION DEV INTO SUP VENA CAVA, PERC APPROACH (02/04/17) IRRIGATION OF PERITON CAV USING DIALYSATE, PERC APPROACH (02/04/17) LAPAROSCOP LYSIS-PERITONEAL ADHES (12/30/14) MEASURE OF CARDIAC SAMPL & PRESSURE, L HEART, PERC APPROACH (10/26/16) PLAIN RADIOGRAPHY OF AORTA, BI LE ART USING L OSM CONTRAST (10/26/16) REMOVAL OF INFUSION DEVICE FROM GREAT VESSEL, PERC APPROACH (02/04/17) TRANSFUSE NONAUT RED BLOOD CELLS IN PERIPH VEIN, PERC (02/04/17) VASCULAR CATH IRRIGATION (01/14/15) VENOUS CATHETERIZATION FOR RENAL DIALYSIS (11/06/14) Family History: States: No Known Family Hx - Social History Hx Tobacco Use: Yes Hx Alcohol Use: No Hx Substance Use: No - Immunization History Hx Tetanus Toxoid Vaccination: Yes Hx Influenza Vaccination: No Hx Pneumococcal Vaccination: No Review Of Systems Constitutional: Negative for: Fever, Chills Gastrointestinal: Negative for: Nausea, Vomiting, Abdominal Pain Genitourinary: Negative for: Dysuria, Hematuria Musculoskeletal: Negative for: Back Pain Skin: Negative for: Rash Neurological: Negative for: Weakness, Numbness Physical Exam - Physical Exam Appears: Non-toxic, No Acute Distress Skin: Normal Color, Warm, Dry, No Rash Head: Atraumatic, Normacephalic Eye(s): bilateral: Normal Inspection Oral Mucosa: Moist Neck: Normal ROM, Supple Chest: Symmetrical Cardiovascular: Rhythm Regular Respiratory: Normal Breath Sounds, No Rales, No Rhonchi, No Wheezing Gastrointestinal/Abdominal: Soft, No Tenderness, No Guarding, No Rebound, Other (RLQ Colostomy bag intact normal drainage ) Extremity: Capillary Refill (<2 seconds), Other (right lower leg stump (-) drainage (-)erythema ) Extremity: Bilateral: Normal ROM Pulses: Left Dorsalis Pedis: Normal, Right Dorsalis Pedis: Normal Neurological/Psych: Oriented x3, Normal Motor, Normal Sensation ED Course And Treatment - Laboratory Results Result Diagrams: 05/01/17 20:37 05/01/17 20:37 Lab Interpretation: Abnormal (WBC 11.3, BUN 22, Cr 5.5, K+ 5.0) O2 Sat by Pulse Oximetry: 100 (RA) Pulse Ox Interpretation: Normal Reevaluation Time: 21:25 Reassessment Condition: Unchanged - Physician Consult Information Time Consulting Physician Contacted: 21:26 Physician Contacted: Rod Lord Outcome Of Conversation: Patient to remain on observation to arrange for hemodialysis tomorrow Disposition - Disposition Disposition: HOSPITALIZED Disposition Time: 21:28 Condition: STABLE - Clinical Impression Clinical Impression: End-stage renal disease on hemodialysis - Hannahibe Statement The provider has reviewed the documentation as recorded by the Jorge Bejarano All medical record entries made by the Jorge were at my direction and personally dictated by me. I have reviewed the chart and agree that the record accurately reflects my personal performance of the history, physical exam, medical decision making, and the department course for this patient. I have also personally directed, reviewed, and agree with the discharge instructions and disposition.
[2017-05-01 20:46] LABS: BASO # 0.1 K/uL (0.0-0.2); EOS # 0.2 K/uL (0.0-0.7); EOS % 1.7 % (0.0-4.0); HEMATOCRIT 27.1 % (34.0-47.0); LYMPH # 1.9 K/uL (1.0-4.3); LYMPH % 17.2 % (20.0-40.0); MEAN CELL VOLUME 99.7 fL (81.0-99.0); MEAN CORPUSCULAR HEMOGLOBIN 31.8 pg (27.0-31.0); MEAN CORPUSCULAR HGB CONC 31.9 g/dL (33.0-37.0); MEAN PLATELET VOLUME 8.3 fL (7.2-11.7); MONO % 8.9 % (0.0-10.0); RED CELL DISTRIBUTION WIDTH 21.7 % (11.5-14.5); WHITE BLOOD COUNT 11.3 K/uL (4.8-10.8)
[2017-05-01 21:01] LABS: ALB/GLOB RATIO 0.9 (1.0-2.1); BILIRUBIN,TOTAL 0.7 mg/dL (0.2-1.3); CALCIUM 8.9 mg/dl (8.6-10.4); TOTAL PROTEIN 7.4 g/dL (6.3-8.3)
[2017-05-01] MEDS ORDERED: Home Med 1 UNIT (Meropenem [Merrem Iv] 500 MG) IVPB SCH (23:45)
[2017-05-01] MEDS: Acyclovir 5% Oint (15 gm) EXT SCH (23:45)
[2017-05-02] MEDS: Meropenem 500 MG in Sodium Chloride 0.9% 100 ML IVPB SCH ×2 (01:00→14:40)
[2017-05-02] MEDS: Acyclovir 5% Oint (15 gm) EXT SCH ×5 (02:45→21:19)
[2017-05-02] MEDS ORDERED: EPOETIN ALFA 10,000 UNIT/ML ML SC SCH (10:00)
--- NOTE | 2017-05-02 11:08 | CP.PCM.CON ---
History of Present Illness - History of Present Illness History of Present Illness: 51 y/o female presents to ED with complaints of colostomy drainage and to continue treatment receiving at [facility]. Patient states she was hospitalized last February and had multiple surgeries including BKA of right leg and Colostomy, patient was then sent to rehab for occupational therapy and had picc line given IV antibiotics and patient thought she was being heavily sedated. Patient felt uncomfortable and signed out AMA from rehab and came to ED for continuation of treatment. No other complaints at this time. Recently pulled out PICC c/o colostomy leak- appears patent at present left LE gangrene, dry, sl worse PMH: ESRD DM 2 HTN PVD PSH: TMA BKA Right PD CATH INSERTION SUBTOTAL COLOSTOMY Review of Systems - Constitutional Constitutional: Fatigue, Lethargy, Weakness - EENT Eyes: absent: As Per HPI, Blind Spots, Blurred Vision, Change in Vision, Decreased Night Vision, Diplopia, Discharge, Dry Eye, Exophthalmos, Floaters, Irritation, Itchy Eyes, Loss of Peripheral Vision, Pain, Photophobia, Requires Corrective Lenses, Sees Flashes, Spots in Vision, Tunnel Vision, Other Visual Disturbances, Loss of Vision, Other Ears: absent: As Per HPI, Decreased Hearing, Ear Discharge, Ear Pain, Tinnitus, Abnormal Hearing, Disequilibrium, Dizziness, Other Nose/Mouth/Throat: absent: As Per HPI, Epistaxis, Nasal Congestion, Nasal Discharge, Nasal Obstruction, Nasal Trauma, Nose Pain, Post Nasal Drip, Sinus Pain, Sinus Pressure, Bleeding Gums, Change in Voice, Dental Pain, Dry Mouth, Dysphagia, Halitosis, Hoarsness, Lip Swelling, Mouth Lesions, Mouth Pain, Odynophagia, Sore Throat, Throat Swelling, Tongue Swelling, Facial Pain, Neck Pain, Neck Mass, Other - Cardiovascular Cardiovascular: Dyspnea on Exertion - Respiratory Respiratory: Cough, Dyspnea on Exertion - Gastrointestinal Gastrointestinal: Nausea - Genitourinary Genitourinary: As Per HPI - Musculoskeletal Musculoskeletal: Muscle Weakness, Radiating Pain into Limb - Neurological Neurological: Numbness, Weakness - Psychiatric Psychiatric: Anxiety Past Patient History - Infectious Disease Hx of Infectious Diseases: None - Past Medical History & Family History Past Medical History?: Yes - Past Social History Smoking Status: Former Smoker Chewing Tobacco Use: No Cigar Use: No Alcohol: None Drugs: Prescription medications - CARDIAC Hx Cardiac Disorders: Yes Hx Hypercholesterolemia: Yes Hx Hypertension: Yes - PULMONARY Hx Respiratory Disorders: Yes Hx Bronchitis: Yes Hx Pneumonia: No - NEUROLOGICAL Hx Neurological Disorder: No - HEENT Hx HEENT Problems: No - RENAL Hx Chronic Kidney Disease: Yes Hx Dialysis: Yes Type of Dialysis Access: HD Date of Last Dialysis Treatment: 04/30/17 - ENDOCRINE/METABOLIC Hx Endocrine Disorders: Yes Hx Diabetes Mellitus Type 2: Yes - HEMATOLOGICAL/ONCOLOGICAL Hx Blood Disorders: Yes Hx Anemia: Yes - INTEGUMENTARY Hx Dermatological Problems: Yes Hx Eczema: Yes - MUSCULOSKELETAL/RHEUMATOLOGICAL Hx Musculoskeletal Disorders: Yes Hx Falls: Yes Other/Comment: bka - GASTROINTESTINAL Hx Gastrointestinal Disorders: Yes Hx Colostomy: Yes - GENITOURINARY/GYNECOLOGICAL Hx Genitourinary Disorders: Yes (DX: RENAL FAILURE) - PSYCHIATRIC Hx Psychophysiologic Disorder: Yes Hx Anxiety: Yes Hx Substance Use: No - SURGICAL HISTORY Hx Surgeries: Yes Hx Amputation: Yes (RBK) Hx Section: Yes Hx Eye Surgery: Yes (INSERT "GAS" BUBBLE BOTH EYES) Hx Tubal Ligation: Yes Hx Vascular Access Device: Yes (R SC HD cath) Other/Comment: I&D GROIN; 12/30/14 LAPAROSCOPIC INSERTION PERITONEAL DIALYSIS CATHETER. 01/14/15 REVISION DONE OF PERITIONEAL DIALYSIS CATH. - ANESTHESIA Hx Anesthesia: Yes Hx Anesthesia Reactions: No Hx Malignant Hyperthermia: No Meds Allergies/Adverse Reactions: Allergies Allergy/AdvReac Type Severity Reaction Status Date / Time shrimp Allergy Severe RASH Verified 05/01/17 15:30 - Medications Medications: Current Medications Acetaminophen (Tylenol 325mg Tab) 650 mg PO Q8H [facility] Last Admin: 05/02/17 00:30 Dose: 650 mg Acyclovir (Zovirax 5% Oint) 1 gm EXT Q3H [facility] Last Admin: 05/02/17 02:45 Dose: Not Given Aspirin (Ecotrin) 81 mg PO DAILY [facility] Calcium Acetate (Phoslo) 2,668 mg PO TIDCC [facility] Clopidogrel Bisulfate (Plavix) 75 mg PO DAILY [facility] Diphenhydramine HCl (Benadryl) 25 mg IVP Q5H PRN PRN Reason: Itching / Pruritus Epoetin Alec (Procrit) 10,000 unit SC TTS [facility] Famotidine (Pepcid) 20 mg PO DAILY [facility] Gabapentin (Neurontin) 100 mg PO QPM [facility] Heparin Sodium (Porcine) (Heparin) 5,000 units SC Q12 [facility] Meropenem 500 mg/ Sodium (Chloride) 100 mls @ 100 mls/hr IVPB Q12H [facility] Last Admin: 05/02/17 01:00 Dose: 100 mls/hr Insulin Glargine (Lantus) 10 unit SC HS [facility] Insulin Human Regular (Novolin R) 0 unit SC ACHS [facility]LL[facility] PRN Reason: Protocol Saccharomyces Boulardii (Florastor) 250 mg PO TID [facility] Vitamin B Complex/Vit C/Folic Acid (Nephro-Cony) 1 tab PO 0800 [facility] Physical Exam - Constitutional Appears: No Acute Distress, Chronically Ill - Head Exam Head Exam: ATRAUMATIC, NORMAL INSPECTION - Eye Exam Eye Exam: EOMI, Normal appearance - Neck Exam Neck exam: Positive for: Normal Inspection. Negative for: Tenderness - Respiratory Exam Respiratory Exam: Clear to Auscultation Bilateral, NORMAL BREATHING PATTERN - Cardiovascular Exam Cardiovascular Exam: REGULAR RHYTHM, +S1 - GI/Abdominal Exam GI & Abdominal Exam: Soft, Tenderness - Extremities Exam Extremities exam: Positive for: calf tenderness, tenderness - Neurological Exam Neurological exam: Alert, CN II-XII Intact - Skin Skin Exam: Dry, Warm Results - Vital Signs Recent Vital Signs: Last Vital Signs Temp 98.1 F 05/02/17 05:45 Pulse 88 05/02/17 07:50 Resp 20 05/02/17 07:50 BP 210/76 H 05/02/17 07:50 Pulse Ox 97 05/02/17 07:50 - Labs Result Diagrams: 05/01/17 20:37 05/01/17 20:37 Labs: Laboratory Results - last 24 hr 05/01/17 05/01/17 20:37 20:37 WBC 11.3 H RBC 2.72 L Hgb 8.6 L Hct 27.1 L MCV 99.7 H MCH 31.8 H MCHC 31.9 L RDW 21.7 H Plt Count 364 MPV 8.3 Neut % (Auto) 71.2 Lymph % (Auto) 17.2 L [place] % (Auto) 8.9 Eos % (Auto) 1.7 Baso % (Auto) 1.0 Neut # 8.1 H Lymph # 1.9 [place] # 1.0 H Eos # 0.2 Baso # 0.1 Sodium 129 L Potassium 5.0 Chloride 92 L Carbon Dioxide 31 H Anion Gap 12 BUN 22 H Creatinine 5.5 H Est GFR ( Amer) 10 Est GFR (Non-Af Amer) 8 Random Glucose 159 H Calcium 8.9 Total Bilirubin 0.7 AST 57 H ALT 39 Alkaline Phosphatase 176 H D Total Protein 7.4 Albumin 3.6 Globulin 3.9 Albumin/Globulin Ratio 0.9 L Assessment & Plan (1) Type 2 diabetes mellitus with diabetic nephropathy Status: Acute (2) S/P BKA (below knee amputation) unilateral Status: Acute (3) End-stage renal disease on hemodialysis Status: Acute (4) Fluid overload Status: Acute (5) Type 2 diabetes mellitus with diabetic nephropathy Status: Acute - Assessment and Plan (Free Text) Plan: Dialysis TTS follow up labs can have surgery check PVD, gangrene and colostomy function
[2017-05-02] MEDS: DiphenhydrAMINE 50 mg/ml Inj IVP PRN ×3 (12:22→18:14)
[2017-05-02] MEDS ORDERED: DiphenhydrAMINE 50 mg/ml Inj ONE (12:26)
[2017-05-02] MEDS: (Novolin R) Insulin Human Regular 100 units/ml vial SC SCH ×3 (13:18→23:22)
[2017-05-02] MEDS: Multivitamin Vitamin B Complex (Nephro-Vite) Tab PO SCH (13:21)
[2017-05-02] MEDS ORDERED: (Novolin R) Insulin Human Regular 100 units/ml vial ONE (13:29)
[2017-05-02] MEDS: Saccharomyces Boulardi 250 mg Cap PO SCH ×2 (14:41→19:53)
[2017-05-02] MEDS: HYDROmorphone 0.5 mg/0.5 ml ISec IVP PRN (18:07)
--- NOTE | 2017-05-02 19:30 | CP.PCM.CON ---
History of Present Illness - History of Present Illness History of Present Illness: General Surgery Consult Re: surgery HPI: 51F well known to surgical service presents to ED after signing out AMA from [facility]. She stated she was uncomfortable at the facility and felt she was being heavily sedated. Had subtotal colectomy with ileostomy and BKA. No complaints at this time. PMH: ESRD on dialysis, DM, PVD, HTN PSH: BKA on right leg, subtotal colectomy with ileostomy All: NKDA Med: As per medical record Review of Systems - Review of Systems All systems: reviewed and no additional remarkable complaints except (as per HPI ) Past Patient History - Infectious Disease Hx of Infectious Diseases: None - Past Medical History & Family History Past Medical History?: Yes - Past Social History Smoking Status: Former Smoker Chewing Tobacco Use: No Cigar Use: No Alcohol: None Drugs: Prescription medications - CARDIAC Hx Cardiac Disorders: Yes Hx Hypercholesterolemia: Yes Hx Hypertension: Yes - PULMONARY Hx Respiratory Disorders: Yes Hx Bronchitis: Yes Hx Pneumonia: No - NEUROLOGICAL Hx Neurological Disorder: No - HEENT Hx HEENT Problems: No - RENAL Hx Chronic Kidney Disease: Yes Hx Dialysis: Yes Type of Dialysis Access: HD Date of Last Dialysis Treatment: 04/30/17 - ENDOCRINE/METABOLIC Hx Endocrine Disorders: Yes Hx Diabetes Mellitus Type 2: Yes - HEMATOLOGICAL/ONCOLOGICAL Hx Blood Disorders: Yes Hx Anemia: Yes - INTEGUMENTARY Hx Dermatological Problems: Yes Hx Eczema: Yes - MUSCULOSKELETAL/RHEUMATOLOGICAL Hx Musculoskeletal Disorders: Yes Hx Falls: Yes Other/Comment: bka - GASTROINTESTINAL Hx Gastrointestinal Disorders: Yes Hx Colostomy: Yes - GENITOURINARY/GYNECOLOGICAL Hx Genitourinary Disorders: Yes (DX: RENAL FAILURE) - PSYCHIATRIC Hx Psychophysiologic Disorder: Yes Hx Anxiety: Yes Hx Substance Use: No - SURGICAL HISTORY Hx Surgeries: Yes Hx Amputation: Yes (RBK) Hx Section: Yes Hx Eye Surgery: Yes (INSERT "GAS" BUBBLE BOTH EYES) Hx Tubal Ligation: Yes Hx Vascular Access Device: Yes (R SC HD cath) Other/Comment: I&D GROIN; 12/30/14 LAPAROSCOPIC INSERTION PERITONEAL DIALYSIS CATHETER. 01/14/15 REVISION DONE OF PERITIONEAL DIALYSIS CATH. - ANESTHESIA Hx Anesthesia: Yes Hx Anesthesia Reactions: No Hx Malignant Hyperthermia: No Meds Allergies/Adverse Reactions: Allergies Allergy/AdvReac Type Severity Reaction Status Date / Time shrimp Allergy Severe RASH Verified 05/01/17 15:30 - Medications Medications: Current Medications Acetaminophen (Tylenol 325mg Tab) 650 mg PO Q8H [facility] Last Admin: 05/02/17 15:55 Dose: Not Given Acyclovir (Zovirax 5% Oint) 1 gm EXT Q3H [facility] Last Admin: 05/02/17 12:30 Dose: 1 applic Aspirin (Ecotrin) 81 mg PO DAILY [facility] Last Admin: 05/02/17 13:22 Dose: 81 mg Calcium Acetate (Phoslo) 2,668 mg PO TIDCC [facility] Last Admin: 05/02/17 13:22 Dose: 2,668 mg Clopidogrel Bisulfate (Plavix) 75 mg PO DAILY [facility] Last Admin: 05/02/17 13:30 Dose: 75 mg Diphenhydramine HCl (Benadryl) 25 mg IVP Q5H PRN PRN Reason: Itching / Pruritus Last Admin: 05/02/17 18:14 Dose: 25 mg Epoetin Alec (Procrit) 10,000 unit SC TTS [facility] Last Admin: 05/02/17 15:29 Dose: 10,000 unit Famotidine (Pepcid) 20 mg PO DAILY [facility] Last Admin: 05/02/17 13:30 Dose: 20 mg Gabapentin (Neurontin) 100 mg PO QPM [facility] Heparin Sodium (Porcine) (Heparin) 5,000 units SC Q12 [facility] Last Admin: 05/02/17 15:28 Dose: 5,000 units Hydromorphone HCl (Dilaudid) 0.5 mg IVP Q5H PRN PRN Reason: Pain, moderate (4-7) Last Admin: 05/02/17 18:07 Dose: 0.5 mg Meropenem 500 mg/ Sodium (Chloride) 100 mls @ 100 mls/hr IVPB Q12H [facility] Last Admin: 05/02/17 14:40 Dose: 100 mls/hr Insulin Glargine (Lantus) 10 unit SC HS [facility] Insulin Human Regular (Novolin R) 0 unit SC ACHS [facility] PRN Reason: Protocol Last Admin: 05/02/17 13:18 Dose: 1 unit Saccharomyces Boulardii (Florastor) 250 mg PO TID [facility] Last Admin: 05/02/17 14:41 Dose: 250 mg Vitamin B Complex/Vit C/Folic Acid (Nephro-Cony) 1 tab PO 0800 [facility] Last Admin: 05/02/17 13:21 Dose: 1 tab Physical Exam - Constitutional Appears: Non-toxic, No Acute Distress - Head Exam Head Exam: ATRAUMATIC, NORMOCEPHALIC - Eye Exam Eye Exam: EOMI. absent: Scleral icterus - ENT Exam ENT Exam: Mucous Membranes Moist Additional comments: Trachea midline - Respiratory Exam Respiratory Exam: NORMAL BREATHING PATTERN. absent: Respiratory Distress - Cardiovascular Exam Cardiovascular Exam: Tachycardia, REGULAR RHYTHM - GI/Abdominal Exam GI & Abdominal Exam: Soft, Tenderness (Tenderness at wound site) Additional comments: midline incision with small areas of healing open wound Right ostomy pink, viable. - Rectal Exam Rectal Exam: Deferred - Extremities Exam Extremities exam: Positive for: normal inspection. Negative for: calf tenderness Additional comments: Right BKA with reyes and sutures present at incision site - Neurological Exam Neurological exam: Alert, Oriented x3 - Psychiatric Exam Psychiatric exam: Normal Affect, Normal Mood - Skin Skin Exam: Dry, Normal Color Results - Vital Signs Recent Vital Signs: Last Vital Signs Temp 98 F 05/02/17 15:50 Pulse 103 H 05/02/17 16:43 Resp 18 05/02/17 16:43 BP 179/94 H 05/02/17 16:43 Pulse Ox 99 05/02/17 15:50 - Labs Result Diagrams: 05/01/17 20:37 05/01/17 20:37 Labs: Laboratory Results - last 24 hr 05/01/17 05/01/17 05/02/17 20:37 20:37 11:31 WBC 11.3 H RBC 2.72 L Hgb 8.6 L Hct 27.1 L MCV 99.7 H MCH 31.8 H MCHC 31.9 L RDW 21.7 H Plt Count 364 MPV 8.3 Neut % (Auto) 71.2 Lymph % (Auto) 17.2 L [place] % (Auto) 8.9 Eos % (Auto) 1.7 Baso % (Auto) 1.0 Neut # 8.1 H Lymph # 1.9 [place] # 1.0 H Eos # 0.2 Baso # 0.1 Sodium 129 L Potassium 5.0 Chloride 92 L Carbon Dioxide 31 H Anion Gap 12 BUN 22 H Creatinine 5.5 H Est GFR ( Amer) 10 Est GFR (Non-Af Amer) 8 POC Glucose (mg/dL) 188 H Random Glucose 159 H Calcium 8.9 Total Bilirubin 0.7 AST 57 H ALT 39 Alkaline Phosphatase 176 H D Total Protein 7.4 Albumin 3.6 Globulin 3.9 Albumin/Globulin Ratio 0.9 L 05/02/17 16:12 WBC RBC Hgb Hct MCV MCH MCHC RDW Plt Count MPV Neut % (Auto) Lymph % (Auto) [place] % (Auto) Eos % (Auto) Baso % (Auto) Neut # Lymph # [place] # Eos # Baso # Sodium Potassium Chloride Carbon Dioxide Anion Gap BUN Creatinine Est GFR ( Amer) Est GFR (Non-Af Amer) POC Glucose (mg/dL) 212 H Random Glucose Calcium Total Bilirubin AST ALT Alkaline Phosphatase Total Protein Albumin Globulin Albumin/Globulin Ratio Assessment & Plan - Assessment and Plan (Free Text) Assessment: 51F s/p subtotal colectomy with ileostomy and right BKA with healing surgical incisions. Plan: - Abdominal dressing changed - Will remove reyes - Consult wound care - Dr. Clark to decide when to remove PD cath - D/w Dr. Eduardo Kennedy PGY4
[2017-05-02] MEDS: (Lantus) Insulin Glargine, Recombinant SC SCH (22:12)
[2017-05-03] MEDS: HYDROmorphone 0.5 mg/0.5 ml ISec IVP PRN ×4 (01:50→17:25)
[2017-05-03] MEDS: DiphenhydrAMINE 50 mg/ml Inj IVP PRN ×5 (01:51→22:43)
[2017-05-03] MEDS: Acyclovir 5% Oint (15 gm) EXT SCH ×7 (03:24→21:40)
[2017-05-03] MEDS: Meropenem 500 MG in Sodium Chloride 0.9% 100 ML IVPB SCH ×2 (04:16→14:37)
[2017-05-03] MEDS: (Novolin R) Insulin Human Regular 100 units/ml vial SC SCH ×5 (07:33→22:32)
[2017-05-03] MEDS: Multivitamin Vitamin B Complex (Nephro-Vite) Tab PO SCH (08:33)
[2017-05-03] MEDS: Saccharomyces Boulardi 250 mg Cap PO SCH ×3 (10:24→18:50)
--- NOTE | 2017-05-03 14:38 | CP.PCM.PN ---
Subjective - Date & Time of Evaluation Date of Evaluation: 05/03/17 Time of Evaluation: 14:35 - Subjective Subjective: stable dilaysis 05/02 but BP dropped at 1 time; BP has been labile UF 2000ml dry gangrene appears worse- might need surgery feels better otherwise Objective - Vital Signs/Intake and Output Vital Signs (last 24 hours): Temp Pulse Resp BP Pulse Ox 98.0 F 97 H 20 161/84 H 97 05/03/17 07:35 05/03/17 07:35 05/03/17 07:35 05/03/17 07:35 05/03/17 07:35 Intake and Output: 05/03/17 05/03/17 06:59 18:59 Intake Total 0 Output Total 350 Balance -350 - Medications Medications: Current Medications Acetaminophen (Tylenol 325mg Tab) 650 mg PO Q8H [facility] Last Admin: 05/03/17 08:34 Dose: 650 mg Acyclovir (Zovirax 5% Oint) 1 gm EXT Q3H [facility] Last Admin: 05/03/17 11:34 Dose: Not Given Aspirin (Ecotrin) 81 mg PO DAILY [facility] Last Admin: 05/03/17 10:24 Dose: 81 mg Calcium Acetate (Phoslo) 2,668 mg PO TIDCC [facility] Last Admin: 05/03/17 12:08 Dose: 2,668 mg Clopidogrel Bisulfate (Plavix) 75 mg PO DAILY [facility] Last Admin: 05/03/17 10:24 Dose: 75 mg Diphenhydramine HCl (Benadryl) 25 mg IVP Q5H PRN PRN Reason: Itching / Pruritus Last Admin: 05/03/17 12:20 Dose: 25 mg Epoetin Alec (Procrit) 10,000 unit SC TTS [facility] Last Admin: 05/02/17 15:29 Dose: 10,000 unit Famotidine (Pepcid) 20 mg PO DAILY [facility] Last Admin: 05/03/17 10:24 Dose: 20 mg Gabapentin (Neurontin) 100 mg PO QPM [facility] Last Admin: 05/02/17 19:54 Dose: Not Given Heparin Sodium (Porcine) (Heparin) 5,000 units SC Q12 [facility] Last Admin: 05/03/17 10:23 Dose: 5,000 units Hydromorphone HCl (Dilaudid) 0.5 mg IVP Q5H PRN PRN Reason: Pain, moderate (4-7) Last Admin: 05/03/17 12:20 Dose: 0.5 mg Meropenem 500 mg/ Sodium (Chloride) 100 mls @ 100 mls/hr IVPB Q12H [facility] Last Admin: 05/03/17 04:16 Dose: 100 mls/hr Insulin Glargine (Lantus) 10 unit SC HS [facility] Last Admin: 05/02/17 22:12 Dose: 10 u Insulin Human Regular (Novolin R) 0 unit SC ACHS [facility] PRN Reason: Protocol Last Admin: 05/03/17 12:08 Dose: 1 unit Saccharomyces Boulardii (Florastor) 250 mg PO TID [facility] Last Admin: 05/03/17 14:26 Dose: 250 mg Vitamin B Complex/Vit C/Folic Acid (Nephro-Cony) 1 tab PO 0800 [facility] Last Admin: 05/03/17 08:33 Dose: 1 tab - Labs Labs: 05/01/17 20:37 05/01/17 20:37 - Constitutional Appears: No Acute Distress, Chronically Ill - Head Exam Head Exam: ATRAUMATIC, NORMAL INSPECTION - Eye Exam Eye Exam: EOMI, Normal appearance - Neck Exam Neck Exam: Normal Inspection. absent: Tenderness - Respiratory Exam Respiratory Exam: Clear to Ausculation Bilateral, NORMAL BREATHING PATTERN - Cardiovascular Exam Cardiovascular Exam: REGULAR RHYTHM, +S1 - GI/Abdominal Exam GI & Abdominal Exam: Soft. absent: Tenderness - Extremities Exam Extremities Exam: Calf Tenderness, Tenderness - Neurological Exam Neurological Exam: Alert, CN II-XII Intact - Skin Skin Exam: Dry, Warm Assessment and Plan (1) Type 2 diabetes mellitus with diabetic nephropathy Status: Acute (2) S/P BKA (below knee amputation) unilateral Status: Acute (3) End-stage renal disease on hemodialysis Status: Acute (4) Fluid overload Status: Acute (5) Type 2 diabetes mellitus with diabetic nephropathy Status: Acute (6) Gangrene associated with type 2 diabetes mellitus Status: Acute - Assessment and Plan (Free Text) Plan: Repeat dialysis TTS EPO IV check iron stores, phos await evaluation gangrene
[2017-05-03] MEDS ORDERED: HYDROmorphone 0.5 mg/0.5 ml ISec IVP STA (21:10)
--- NOTE | 2017-05-03 21:13 | CP.PCM.HP ---
History of Present Illness - History of Present Illness History of Present Illness: Chief complaint: patient signed out from the rehabilitation, pulled out the PICC line, came to the emergency room, and he needed hospitalization and diuresis. History present illness: 51-year-old female with history of hypertension, end-stage renal disease on peritoneal dialysis, high cholesterol, diabetes, history of pneumonia, renal insufficiency, peripheral vascular disease, ischemic right leg, and the complicated with the sepsis. During the last hospitalization patient underwent patient had a right fem-pop bypass November 2016 and right IRRIGATOR VALVE PIPE cath and left common iliac stent November 2016. But patient currently developed established gangrene of the fore foot. patient came to the emergency room now with increasing pain over the left leg, left foot,discoloration of the great toe on the left foot, pain. Hospital course During the last admission, patient had a multiple intervention, and multiple complications. Which includes: During the stay in the hospital patient underwent a multiple surgical intervention. Patient initially had a PICC line, which was changed to a new single-lumen catheter on the right upper extremity on 02/08/2017. On the same day patient also had an aortofemoral angiogram via left groin with a selective catheterization of the right femoral artery, and stent placement was done on 02/08/[address] Clark. On 02/12/2017 patient underwent a right foot transmetatarsal limitation, with his minimal blood loss. Procedure was done by Dr. Oakley Patient again underwent on 03/13/2017 and wound debridement, application of wound VAC, by While she was recovering, she suddenly developed acute abdomen, with the impending colonic rupture, so emergent surgical intervention was done on 2016, by Dr. Clark. She underwent subtotal corpectomy, insertion of the permacath, and the peritoneal dialysis catheter was kept the place for drainage of abdominal fluid. And finally as the patient having no improvement in the right leg wound, right below-knee amputation was done by Dr. Clark on 04/04/2017. During all this time patient was having recurrent wound infection, receiving antibiotic as per infectious disease specialist. Meanwhile patient was also having dialysis, by hemodialysis catheter. Blood pressure and blood sugar is maintained. Patient right now have a colostomy. Patient has a hemodialysis catheter. She also has a PICC line on the right arm. Patient is clinically stable. She will be discharged to rehabilitation. Physical therapy. Meanwhile her left leg especially the heel and third toe showing minimal duskiness. Most likely patient also has ischemic left leg. She will probably will need definite treatment including a amputation. Patient in the past had a multiple revascularization procedure, but no improvement. Patient understand the condition. Patient had extensive hospitalization this time. Multiple surgical intervention. Patient is understanding. And she is feeling somewhat depressed at times. She will also need AV fistula. may need reversal of colostomy in future. Past medical history: Diabetes, hypertension, hypercholesterolemia, anemia, renal insufficiency, pituitary dialysis, peripheral vascular disease Surgical history: , currently receiving peritoneal dialysis allergy: No known drug allergy Personal history patient is a lifelong nonsmoker, nonalcoholic Review of system: Patient does not have any headache. She is feeling more optimistic this time. Pain in the right leg noted. Receiving peritoneal dialysis. No chest pain or shortness of breath On examination: Vital signs stable, chest good air entry bilaterally regular heart sound nontender abdomen colostomy noted. Right leg below-knee a amputation. Left leg, discoloration of the great toe and the middle toenoted. Assessment and recommendation: 51-year-old female with history of hypertension, end-stage renal disease on hemodialysis,high cholesterol, diabetes, history of pneumonia, renal insufficiency, peripheral vascular disease,ischemic legs. Gangrene of the bilateral legs, status post below-knee amputation on the right side. Left foot gangrene. patient will need hemodialysis. Antibiotic. Patient probably will need intervention for the left leg. Surgical evaluation. Podiatry evaluation. Renal evaluation. Overall prognosis very poor. Discussed with the patient. Present on Admission - Present on Admission Any Indicators Present on Admission: No History of DVT/PE: No History of Uncontrolled Diabetes: No Urinary Catheter: No Decubitus Ulcer Present: No Past Patient History - Infectious Disease Hx of Infectious Diseases: None - Past Medical History & Family History Past Medical History?: Yes - Past Social History Smoking Status: Former Smoker Chewing Tobacco Use: No Cigar Use: No Alcohol: None Drugs: Prescription medications - CARDIAC Hx Cardiac Disorders: Yes Hx Hypercholesterolemia: Yes Hx Hypertension: Yes - PULMONARY Hx Respiratory Disorders: Yes Hx Bronchitis: Yes Hx Pneumonia: No - NEUROLOGICAL Hx Neurological Disorder: No - HEENT Hx HEENT Problems: No - RENAL Hx Chronic Kidney Disease: Yes Hx Dialysis: Yes Type of Dialysis Access: HD Date of Last Dialysis Treatment: 04/30/17 - ENDOCRINE/METABOLIC Hx Endocrine Disorders: Yes Hx Diabetes Mellitus Type 2: Yes - HEMATOLOGICAL/ONCOLOGICAL Hx Blood Disorders: Yes Hx Anemia: Yes - INTEGUMENTARY Hx Dermatological Problems: Yes Hx Eczema: Yes - MUSCULOSKELETAL/RHEUMATOLOGICAL Hx Musculoskeletal Disorders: Yes Hx Falls: Yes Other/Comment: bka - GASTROINTESTINAL Hx Gastrointestinal Disorders: Yes Hx Colostomy: Yes - GENITOURINARY/GYNECOLOGICAL Hx Genitourinary Disorders: Yes (DX: RENAL FAILURE) - PSYCHIATRIC Hx Psychophysiologic Disorder: Yes Hx Anxiety: Yes Hx Substance Use: No - SURGICAL HISTORY Hx Surgeries: Yes Hx Amputation: Yes (RBK) Hx Section: Yes Hx Eye Surgery: Yes (INSERT "GAS" BUBBLE BOTH EYES) Hx Tubal Ligation: Yes Hx Vascular Access Device: Yes (R SC HD cath) Other/Comment: I&D GROIN; 12/30/14 LAPAROSCOPIC INSERTION PERITONEAL DIALYSIS CATHETER. 01/14/15 REVISION DONE OF PERITIONEAL DIALYSIS CATH. - ANESTHESIA Hx Anesthesia: Yes Hx Anesthesia Reactions: No Hx Malignant Hyperthermia: No Meds Allergies/Adverse Reactions: Allergies Allergy/AdvReac Type Severity Reaction Status Date / Time shrimp Allergy Severe RASH Verified 05/01/17 15:30 Results - Vital Signs Recent Vital Signs: Last Vital Signs Temp 98.3 F 05/03/17 16:00 Pulse 105 H 05/03/17 16:00 Resp 20 05/03/17 16:00 BP 94/61 L 05/03/17 16:00 Pulse Ox 100 05/03/17 16:00 - Labs Result Diagrams: 05/09/17 07:07 05/09/17 07:07 Labs: Laboratory Results - last 24 hr 05/02/17 05/03/17 05/03/17 21:52 06:24 11:45 POC Glucose (mg/dL) 144 H 182 H 181 H 05/03/17 16:25 POC Glucose (mg/dL) 138 H
--- NOTE | 2017-05-03 21:13 | CP.PCM.PN ---
Subjective - Date & Time of Evaluation Date of Evaluation: 05/03/17 Time of Evaluation: 21:13 - Subjective Subjective: patient is getting the hemodialysis today. Blood pressure slightly on the low side, doing the hemodialysis. Discussed with the patient about the pain control. Continue the IV antibiotic. Cultures were taken. spoke to the patient in detail able to progress Colostomy draining liquid, minimal redness around the colostomy site noted Objective - Vital Signs/Intake and Output Vital Signs (last 24 hours): Temp Pulse Resp BP Pulse Ox 98.3 F 105 H 20 94/61 L 100 05/03/17 16:00 05/03/17 16:00 05/03/17 16:00 05/03/17 16:00 05/03/17 16:00 On examination: HEENT PERRLA, neck supple No thyromegaly was noted and no cervical adenopathy noted Chest bilateral good air entry, no wheezing or rales noted CVS regular heart sound, no murmur right below-knee amputation, left leg gangrene noted. Colostomy noted. 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 awake oriented x3 no functional neurological deficit Intake and Output: 05/03/17 05/04/17 18:59 06:59 Intake Total 380 Output Total 250 Balance 130 - Medications Medications: Current Medications Acetaminophen (Tylenol 325mg Tab) 650 mg PO Q8H [facility] Last Admin: 05/03/17 16:00 Dose: Not Given Acyclovir (Zovirax 5% Oint) 1 gm EXT Q3H [facility] Last Admin: 05/03/17 18:00 Dose: Not Given Aspirin (Ecotrin) 81 mg PO DAILY [facility] Last Admin: 05/03/17 10:24 Dose: 81 mg Calcium Acetate (Phoslo) 2,668 mg PO TIDCC [facility] Last Admin: 05/03/17 17:50 Dose: 2,668 mg Clopidogrel Bisulfate (Plavix) 75 mg PO DAILY [facility] Last Admin: 05/03/17 10:24 Dose: 75 mg Diphenhydramine HCl (Benadryl) 25 mg IVP Q5H PRN PRN Reason: Itching / Pruritus Last Admin: 05/03/17 17:25 Dose: 25 mg Epoetin Alec (Procrit) 10,000 unit IV TTS [facility] Famotidine (Pepcid) 20 mg PO DAILY [facility] Last Admin: 05/03/17 10:24 Dose: 20 mg Gabapentin (Neurontin) 100 mg PO QPM [facility] Last Admin: 05/03/17 18:50 Dose: 100 mg Gabapentin (Neurontin) 100 mg PO ONCE ONE Stop: 05/03/17 21:12 Heparin Sodium (Porcine) (Heparin) 5,000 units SC Q12 [facility] Last Admin: 05/03/17 10:23 Dose: 5,000 units Hydromorphone HCl (Dilaudid) 0.5 mg IVP Q5H PRN PRN Reason: Pain, moderate (4-7) Last Admin: 05/03/17 17:25 Dose: 0.5 mg Hydromorphone HCl (Dilaudid) 0.5 mg IVP STAT STA Stop: 05/03/17 21:11 Meropenem 500 mg/ Sodium (Chloride) 100 mls @ 100 mls/hr IVPB Q12H [facility] Last Admin: 05/03/17 14:37 Dose: 100 mls/hr Insulin Glargine (Lantus) 10 unit SC HS [facility] Last Admin: 05/02/17 22:12 Dose: 10 u Insulin Human Regular (Novolin R) 0 unit SC ACHS [facility] PRN Reason: Protocol Last Admin: 05/03/17 17:10 Dose: Not Given Saccharomyces Boulardii (Florastor) 250 mg PO TID [facility] Last Admin: 05/03/17 18:50 Dose: 250 mg Vitamin B Complex/Vit C/Folic Acid (Nephro-Cony) 1 tab PO 0800 [facility] Last Admin: 05/03/17 08:33 Dose: 1 tab - Labs Labs: 05/01/17 20:37 05/01/17 20:37 Assessment and Plan (1) End-stage renal disease on hemodialysis Assessment & Plan: on dialysis. Patient has a hemodialysis catheter. Status post a colostomy from complicated colitis. Patient now having possible ischemia and gangrene of the left foot. Further intervention needed. Antibiotic. Surgical cardiac evaluation will follow the patient Status: Acute (2) Gangrene associated with type 2 diabetes mellitus Status: Acute (3) S/P BKA (below knee amputation) unilateral Status: Acute
[2017-05-03] MEDS: (Lantus) Insulin Glargine, Recombinant SC SCH (22:35)
[2017-05-04] MEDS: Acyclovir 5% Oint (15 gm) EXT SCH ×9 (00:42→23:54)
[2017-05-04] MEDS: Meropenem 500 MG in Sodium Chloride 0.9% 100 ML IVPB SCH ×2 (00:56→13:49)
[2017-05-04] MEDS: HYDROmorphone 0.5 mg/0.5 ml ISec IVP PRN ×4 (02:55→18:48)
[2017-05-04] MEDS: DiphenhydrAMINE 50 mg/ml Inj IVP PRN ×4 (03:00→18:49)
[2017-05-04] MEDS: Multivitamin Vitamin B Complex (Nephro-Vite) Tab PO SCH (08:27)
[2017-05-04] MEDS: (Novolin R) Insulin Human Regular 100 units/ml vial SC SCH ×4 (08:29→23:52)
[2017-05-04] MEDS ORDERED: Influenza Vaccine 60 mcg/0.5 mL SYR (4YR UP) IM ONE (10:00)
[2017-05-04] MEDS ORDERED: EPOETIN ALFA 10,000 UNIT/ML ML IV SCH (10:00)
--- NOTE | 2017-05-04 10:48 | CP.PCM.PN ---
Subjective - Date & Time of Evaluation Date of Evaluation: 05/04/17 Time of Evaluation: 10:45 - Subjective Subjective: seen at dialysis to UF 2500ml alert; still c/o left foot gangrene and pain wants colostomy reversed tolerating dialysis well Objective - Vital Signs/Intake and Output Vital Signs (last 24 hours): Temp Pulse Resp BP Pulse Ox 98 F 100 H 20 183/95 H 99 05/04/17 08:37 05/04/17 08:37 05/04/17 08:37 05/04/17 08:37 05/04/17 08:37 Intake and Output: 05/04/17 05/04/17 06:59 18:59 Intake Total 300 Output Total 220 Balance 80 - Medications Medications: Current Medications Acetaminophen (Tylenol 325mg Tab) 650 mg PO Q8H [facility]PLAC[facility] BY [facility] Last Admin: 05/04/17 08:27 Dose: 650 mg Acyclovir (Zovirax 5% Oint) 1 gm EXT Q3H [facility] Last Admin: 05/04/17 08:29 Dose: Not Given Aspirin (Ecotrin) 81 mg PO DAILY [facility] Last Admin: 05/03/17 10:24 Dose: 81 mg Calcium Acetate (Phoslo) 2,668 mg PO TIDCC REPLACED BY [facility] Last Admin: 05/04/17 08:27 Dose: 2,668 mg Clopidogrel Bisulfate (Plavix) 75 mg PO DAILY [facility] Last Admin: 05/03/17 10:24 Dose: 75 mg Diphenhydramine HCl (Benadryl) 25 mg IVP Q5H PRN PRN Reason: Itching / Pruritus Last Admin: 05/04/17 08:43 Dose: 25 mg Epoetin Alec (Procrit) 10,000 unit IV TTS [facility] Famotidine (Pepcid) 20 mg PO DAILY [facility] Last Admin: 05/03/17 10:24 Dose: 20 mg Gabapentin (Neurontin) 100 mg PO QPM [facility] Last Admin: 05/03/17 18:50 Dose: 100 mg Heparin Sodium (Porcine) (Heparin) 5,000 units SC Q12 [facility] Last Admin: 05/03/17 22:34 Dose: 5,000 units Hydromorphone HCl (Dilaudid) 0.5 mg IVP Q5H PRN PRN Reason: Pain, moderate (4-7) Last Admin: 05/04/17 08:44 Dose: 0.5 mg Meropenem 500 mg/ Sodium (Chloride) 100 mls @ 100 mls/hr IVPB Q12H [facility]PL[facility] Last Admin: 05/04/17 00:56 Dose: 100 mls/hr Insulin Glargine (Lantus) 10 unit SC HS [facility]PLACED BY [facility] Last Admin: 05/03/17 22:35 Dose: 10 u Insulin Human Regular (Novolin R) 0 unit SC ACHS [facility] PRN Reason: Protocol Last Admin: 05/04/17 08:29 Dose: Not Given Saccharomyces Boulardii (Florastor) 250 mg PO TID [facility]PL[facility] BY [facility] Last Admin: 05/03/17 18:50 Dose: 250 mg Vitamin B Complex/Vit C/Folic Acid (Nephro-Cony) 1 tab PO 0800 [facility] Last Admin: 05/04/17 08:27 Dose: 1 tab - Labs Labs: 05/01/17 20:37 05/01/17 20:37 - Constitutional Appears: No Acute Distress, Chronically Ill - Head Exam Head Exam: ATRAUMATIC, NORMAL INSPECTION - Eye Exam Eye Exam: EOMI, Normal appearance - Neck Exam Neck Exam: Normal Inspection. absent: Tenderness - Respiratory Exam Respiratory Exam: Clear to Ausculation Bilateral, NORMAL BREATHING PATTERN - Cardiovascular Exam Cardiovascular Exam: REGULAR RHYTHM, +S1 - GI/Abdominal Exam GI & Abdominal Exam: Soft. absent: Tenderness - Extremities Exam Extremities Exam: Calf Tenderness, Tenderness - Neurological Exam Neurological Exam: Awake, CN II-XII Intact - Skin Skin Exam: Dry, Warm Assessment and Plan (1) Type 2 diabetes mellitus with diabetic nephropathy Status: Acute (2) S/P BKA (below knee amputation) unilateral Status: Acute (3) End-stage renal disease on hemodialysis Status: Acute (4) Fluid overload Status: Acute (5) Type 2 diabetes mellitus with diabetic nephropathy Status: Acute (6) Gangrene associated with type 2 diabetes mellitus Status: Acute - Assessment and Plan (Free Text) Plan: same dialysis TTS await surgical decisions about foot gangrene, colostomy f/u labs
[2017-05-04] MEDS: Saccharomyces Boulardi 250 mg Cap PO SCH ×3 (10:56→18:45)
[2017-05-04 11:03] LABS: BASO # 0.1 K/uL (0.0-0.2); BASO % 0.7 % (0.0-2.0); EOS # 0.3 K/uL (0.0-0.7); EOS % 2.6 % (0.0-4.0); HEMATOCRIT 26.7 % (34.0-47.0); LYMPH # 1.9 K/uL (1.0-4.3); MEAN CELL VOLUME 99.3 fL (81.0-99.0); MEAN CORPUSCULAR HEMOGLOBIN 32.2 pg (27.0-31.0); MEAN CORPUSCULAR HGB CONC 32.4 g/dL (33.0-37.0); MEAN PLATELET VOLUME 8.7 fL (7.2-11.7); MONO # 0.8 K/uL (0.0-0.8); MONO % 7.2 % (0.0-10.0); NRBC % 0.1 % (0.0-2.0); RED CELL DISTRIBUTION WIDTH 20.5 % (11.5-14.5); WHITE BLOOD COUNT 10.6 K/uL (4.8-10.8)
[2017-05-04 11:24] LABS: ALB/GLOB RATIO 0.7 (1.0-2.1); BILIRUBIN,TOTAL 0.4 mg/dL (0.2-1.3); PHOSPHOROUS 4.9 mg/dL (2.5-4.5); POTASSIUM 5.4 mmol/L (3.6-5.2)
[2017-05-04] MEDS: Epoetin Alfa 10,000 unit/ml Dialysis IV SCH (12:38)
--- NOTE | 2017-05-04 18:01 | CP.PCM.PN ---
Subjective - Date & Time of Evaluation Date of Evaluation: 05/04/17 Time of Evaluation: 18:01 - Subjective Subjective: I spoke to the patient in detail. patient does not want any further surgical intervention, she wanted to go to her brother's house. blood pressure sometimes on the low side during the dialysis Pain still persistently noted. Significant pain in the left side noted. Patient is eating okay Objective - Vital Signs/Intake and Output Vital Signs (last 24 hours): Temp Pulse Resp BP Pulse Ox 97.9 F 98 H 16 90/45 L 100 05/04/17 10:15 05/04/17 13:15 05/04/17 10:15 05/04/17 13:15 05/04/17 13:15 Intake and Output: 05/04/17 05/04/17 06:59 18:59 Intake Total 300 380 Output Total 220 50 Balance 80 330 On examination: HEENT PERRLA, neck supple No thyromegaly was noted and no cervical adenopathy noted Chest bilateral good air entry, no wheezing or rales noted CVS regular heart sound, no murmur colostomy right below-knee amputation. Left ischemia leg [employer]INE [employer] alert awake oriented x3 no functional neurological deficit - Medications Medications: Current Medications Acetaminophen (Tylenol 325mg Tab) 650 mg PO Q8H [facility] Last Admin: 05/04/17 16:00 Dose: Not Given Acyclovir (Zovirax 5% Oint) 1 gm EXT Q3H [facility] Last Admin: 05/04/17 16:12 Dose: Not Given Aspirin (Ecotrin) 81 mg PO DAILY [facility] Last Admin: 05/04/17 10:56 Dose: Not Given Calcium Acetate (Phoslo) 2,668 mg PO TIDCC [facility] Last Admin: 05/04/17 16:47 Dose: 2,668 mg Clopidogrel Bisulfate (Plavix) 75 mg PO DAILY [facility] Last Admin: 05/04/17 10:57 Dose: Not Given Diphenhydramine HCl (Benadryl) 25 mg IVP Q5H PRN PRN Reason: Itching / Pruritus Last Admin: 05/04/17 13:48 Dose: 25 mg Epoetin Alec (Procrit) 10,000 unit IV TTS [facility] Last Admin: 05/04/17 12:38 Dose: 10,000 unit Famotidine (Pepcid) 20 mg PO DAILY [facility] Last Admin: 05/04/17 10:57 Dose: Not Given Gabapentin (Neurontin) 100 mg PO QPM [facility] Last Admin: 05/03/17 18:50 Dose: 100 mg Heparin Sodium (Porcine) (Heparin) 5,000 units SC Q12 [facility] Last Admin: 05/04/17 10:57 Dose: Not Given Hydromorphone HCl (Dilaudid) 0.5 mg IVP Q5H PRN PRN Reason: Pain, moderate (4-7) Last Admin: 05/04/17 13:50 Dose: 0.5 mg Meropenem 500 mg/ Sodium (Chloride) 100 mls @ 100 mls/hr IVPB Q12H [facility] Last Admin: 05/04/17 13:49 Dose: 100 mls/hr Insulin Glargine (Lantus) 10 unit SC HS [facility] Last Admin: 05/03/17 22:35 Dose: 10 u Insulin Human Regular (Novolin R) 0 unit SC ACHS [facility] PRN Reason: Protocol Last Admin: 05/04/17 11:44 Dose: Not Given Oxycodone/Acetaminophen (Percocet 5/325 Mg Tab) 2 tab PO Q6H PRN PRN Reason: Pain, moderate (4-7) IF NO IV Stop: 05/07/17 17:48 Saccharomyces Boulardii (Florastor) 250 mg PO TID [facility] Last Admin: 05/04/17 13:49 Dose: 250 mg Vitamin B Complex/Vit C/Folic Acid (Nephro-Cony) 1 tab PO 0800 [facility] Last Admin: 05/04/17 08:27 Dose: 1 tab - Labs Labs: 05/04/17 11:00 05/04/17 11:00 Assessment and Plan - Assessment and Plan (Free Text) Assessment: patient with a multiple medical issues. Diabetes, complication. Diabetic neuropathy. Diabetic vascular disease, complicated with the ischemia, gangrene. Patient is currently having left foot gangrene. Patient does not want any surgical intervention now. Prognosis very poor. Continue the hemodialysis Pain control
[2017-05-04] MEDS: Oxycodone/Acetaminophen 5/325 mg Tab PO PRN (21:55)
[2017-05-04] MEDS: (Lantus) Insulin Glargine, Recombinant SC SCH (21:55)
[2017-05-05] MEDS: Meropenem 500 MG in Sodium Chloride 0.9% 100 ML IVPB SCH ×2 (01:04→14:00)
[2017-05-05] MEDS: HYDROmorphone 0.5 mg/0.5 ml ISec IVP PRN ×4 (01:09→22:08)
[2017-05-05] MEDS: DiphenhydrAMINE 50 mg/ml Inj IVP PRN ×4 (01:11→19:40)
[2017-05-05] MEDS: Acyclovir 5% Oint (15 gm) EXT SCH ×7 (02:59→20:45)
[2017-05-05] MEDS: (Novolin R) Insulin Human Regular 100 units/ml vial SC SCH ×4 (07:08→22:00)
[2017-05-05] MEDS: Multivitamin Vitamin B Complex (Nephro-Vite) Tab PO SCH (08:13)
[2017-05-05] MEDS ORDERED: Influenza Vaccine 60 mcg/0.5 mL SYR (4YR UP) IM ONE (10:00)
[2017-05-05] MEDS: Oxycodone/Acetaminophen 5/325 mg Tab PO PRN ×2 (10:53→17:34)
[2017-05-05] MEDS: Saccharomyces Boulardi 250 mg Cap PO SCH ×3 (10:53→17:32)
[2017-05-05] MEDS: (Lantus) Insulin Glargine, Recombinant SC SCH (21:59)
[2017-05-06] MEDS: Acyclovir 5% Oint (15 gm) EXT SCH ×8 (00:10→22:07)
[2017-05-06] MEDS: Meropenem 500 MG in Sodium Chloride 0.9% 100 ML IVPB SCH ×2 (01:52→14:21)
[2017-05-06] MEDS: HYDROmorphone 0.5 mg/0.5 ml ISec IVP PRN ×4 (03:23→19:56)
[2017-05-06] MEDS: DiphenhydrAMINE 50 mg/ml Inj IVP PRN ×4 (03:24→20:04)
[2017-05-06] MEDS: (Novolin R) Insulin Human Regular 100 units/ml vial SC SCH ×4 (07:38→22:06)
[2017-05-06] MEDS: Multivitamin Vitamin B Complex (Nephro-Vite) Tab PO SCH (08:38)
[2017-05-06] MEDS: Saccharomyces Boulardi 250 mg Cap PO SCH ×3 (10:08→17:47)
--- NOTE | 2017-05-06 11:58 | CP.PCM.PN ---
Subjective - Date & Time of Evaluation Date of Evaluation: 05/06/17 Time of Evaluation: 11:55 - Subjective Subjective: Same pains in left foot- dry gangrene dialysis went well 05/04 BP labile- usually controlled same intermittent pains- mostly controlled Objective - Vital Signs/Intake and Output Vital Signs (last 24 hours): Temp Pulse Resp BP Pulse Ox 98.1 F 95 H 20 177/98 H 99 05/06/17 08:59 05/06/17 08:59 05/06/17 08:59 05/06/17 08:59 05/06/17 08:59 Intake and Output: 05/06/17 05/06/17 06:59 18:59 Intake Total 200 Output Total 250 Balance -50 - Medications Medications: Current Medications Acetaminophen (Tylenol 325mg Tab) 650 mg PO Q8H [facility] Last Admin: 05/06/17 08:38 Dose: 650 mg Acyclovir (Zovirax 5% Oint) 1 gm EXT Q3H [facility] Last Admin: 05/06/17 10:14 Dose: 1 applic Aspirin (Ecotrin) 81 mg PO DAILY [facility] Last Admin: 05/06/17 10:08 Dose: 81 mg Calcium Acetate (Phoslo) 2,668 mg PO TIDCC [facility] Last Admin: 05/06/17 08:38 Dose: 2,668 mg Clopidogrel Bisulfate (Plavix) 75 mg PO DAILY [facility] Last Admin: 05/06/17 10:08 Dose: 75 mg Diphenhydramine HCl (Benadryl) 25 mg IVP Q5H PRN PRN Reason: Itching / Pruritus Last Admin: 05/06/17 08:42 Dose: 25 mg Epoetin Alec (Procrit) 10,000 unit IV TTS [facility] Last Admin: 05/04/17 12:38 Dose: 10,000 unit Famotidine (Pepcid) 20 mg PO DAILY [facility] Last Admin: 05/06/17 10:08 Dose: 20 mg Gabapentin (Neurontin) 100 mg PO QPM [facility] Last Admin: 05/05/17 17:33 Dose: 100 mg Heparin Sodium (Porcine) (Heparin) 5,000 units SC Q12 [facility] Last Admin: 05/06/17 10:09 Dose: 5,000 units Hydromorphone HCl (Dilaudid) 0.5 mg IVP Q5H PRN PRN Reason: Pain, moderate (4-7) Last Admin: 05/06/17 08:39 Dose: 0.5 mg Meropenem/Sodium Chloride (Meropenem-0.9% Nacl 500 Mg/50) 500 mg in 50 mls @ 100 mls/hr IV Q12H [facility] Stop: 05/07/17 01:01 Insulin Glargine (Lantus) 10 unit SC HS [facility] Last Admin: 05/05/17 21:59 Dose: 10 u Insulin Human Regular (Novolin R) 0 unit SC ACHS [facility] PRN Reason: Protocol Last Admin: 05/06/17 11:29 Dose: Not Given Oxycodone/Acetaminophen (Percocet 5/325 Mg Tab) 2 tab PO Q6H PRN PRN Reason: Pain, moderate (4-7) IF NO IV Stop: 05/07/17 17:48 Last Admin: 05/05/17 17:34 Dose: 2 tab Saccharomyces Boulardii (Florastor) 250 mg PO TID [facility] Last Admin: 05/06/17 10:08 Dose: 250 mg Vitamin B Complex/Vit C/Folic Acid (Nephro-Cony) 1 tab PO 0800 [facility] Last Admin: 05/06/17 08:38 Dose: 1 tab - Labs Labs: 05/04/17 11:00 05/04/17 11:00 - Constitutional Appears: No Acute Distress, Chronically Ill - Head Exam Head Exam: ATRAUMATIC, NORMAL INSPECTION - Eye Exam Eye Exam: EOMI, Normal appearance - Neck Exam Neck Exam: Normal Inspection. absent: Tenderness - Respiratory Exam Respiratory Exam: Clear to Ausculation Bilateral, NORMAL BREATHING PATTERN - Cardiovascular Exam Cardiovascular Exam: REGULAR RHYTHM, +S1 - GI/Abdominal Exam GI & Abdominal Exam: Soft. absent: Tenderness - Extremities Exam Extremities Exam: Normal Inspection, Tenderness - Neurological Exam Neurological Exam: Awake, CN II-XII Intact - Skin Skin Exam: Dry, Warm Assessment and Plan (1) Type 2 diabetes mellitus with diabetic nephropathy Status: Acute (2) S/P BKA (below knee amputation) unilateral Status: Acute (3) End-stage renal disease on hemodialysis Status: Acute (4) Fluid overload Status: Acute (5) Type 2 diabetes mellitus with diabetic nephropathy Status: Acute (6) Gangrene associated with type 2 diabetes mellitus Status: Acute - Assessment and Plan (Free Text) Plan: dialysis in AM and TTS monitor BP repeat labs eventual colostomy reversal likely no LE amputation for dry gangrene at this point as pain controlled await surgery follow up
[2017-05-06] MEDS: Oxycodone/Acetaminophen 5/325 mg Tab PO PRN (12:32)
[2017-05-06] MEDS ORDERED: MEROPENEM 500 MG in NS 500 MG/50 ML BAG IV SCH (13:00)
--- NOTE | 2017-05-06 13:07 | VASCLAB ---
PROCEDURE: Upper Extremity Venous Duplex Exam HISTORY: dvt PRIORS: None. TECHNIQUE: Bilateral upper extremity, internal jugular, subclavian, axillary, brachial, ulnar, radial, basilic and upper cephalic veins were evaluated. Flow was assessed with color Doppler, compressibility, assessment of phasic flow and augmentation response. Report prepared by Zahira Aldrich, RD, RVS FINDINGS: RIGHT: 1. Internal Jugular: 1.1. Compressibility - Fully compressible: Thrombus - None : Flow - Phasic: Augmentation -Normal: Reflux - None. 2. Subclavian: 2.1. Compressibility - Fully compressible: Thrombus - None : Flow - Phasic: Augmentation -Normal: Reflux - None. 3. Axillary: 3.1. Compressibility - Fully compressible: Thrombus - None : Flow - Phasic: Augmentation -Normal: Reflux - None. 4. Brachial: 4.1. Compressibility - Fully compressible: Thrombus - None: Flow - Phasic: Augmentation -Normal: Reflux - None. 5. Ulnar: 5.1. Compressibility - Fully compressible: Thrombus - None: Flow - Phasic: Augmentation -Normal: Reflux - None. 6. Radial: 6.1. Compressibility - Fully compressible: Thrombus - None: Flow - Phasic: Augmentation - Normal: Reflux - None. 7. Cephalic: 7.1. Compressibility - Fully compressible: Thrombus - None: Flow - Phasic: Augmentation -Normal: Reflux - None. 8. Basilic: 8.1. Compressibility - Fully compressible: Thrombus - None: Flow - Phasic: Augmentation -Normal: Reflux - None. LEFT: 1. Internal Jugular: 1.1. Compressibility - Fully compressible: Thrombus - None : Flow - Phasic: Augmentation -Normal: Reflux - None. 2. Subclavian: 2.1. Compressibility - Fully compressible: Thrombus - None : Flow - Phasic: Augmentation -Normal: Reflux - None. 3. Axillary: 3.1. Compressibility - Fully compressible: Thrombus - None : Flow - Phasic: Augmentation -Normal: Reflux - None. 4. Brachial: 4.1. Compressibility - Fully compressible: Thrombus - None: Flow - Phasic: Augmentation -Normal: Reflux - None. 5. Ulnar: 5.1. Compressibility - Fully compressible: Thrombus - None: Flow - Phasic: Augmentation -Normal: Reflux - None. 6. Radial: 6.1. Compressibility - Fully compressible: Thrombus - None: Flow - Phasic: Augmentation - Normal: Reflux - None. 7. Cephalic: 7.1. Compressibility - Fully compressible: Thrombus - None: Flow - Phasic: Augmentation -Normal: Reflux - None. 8. Basilic: 8.1. Compressibility - Fully compressible: Thrombus - None: Flow - Phasic: Augmentation -Normal: Reflux - None. OTHER FINDINGS: Right: None. Left: None. IMPRESSION: Right: No evidence of vein thrombosis of the right upper extremity with excellent venous flow. Normal valve function noted of the right side. Left: No evidence of vein thrombosis of the left upper extremity with excellent venous flow. Normal valve function noted of the left side.
--- NOTE | 2017-05-06 16:32 | CP.PCM.PCO ---
Physician Communication Note - Physician Communication Note Physician Communication Note: R BKA reyes removed. Sutures left in place.
[2017-05-06] MEDS: (Lantus) Insulin Glargine, Recombinant SC SCH (22:13)
[2017-05-07] MEDS: Acyclovir 5% Oint (15 gm) EXT SCH ×8 (01:29→22:25)
[2017-05-07] MEDS: Meropenem 500 MG in Sodium Chloride 0.9% 100 ML IVPB SCH ×2 (02:08→14:18)
[2017-05-07] MEDS: (Novolin R) Insulin Human Regular 100 units/ml vial SC SCH ×4 (07:42→22:24)
[2017-05-07] MEDS: Multivitamin Vitamin B Complex (Nephro-Vite) Tab PO SCH (09:00)
[2017-05-07] MEDS: Saccharomyces Boulardi 250 mg Cap PO SCH ×3 (09:00→19:01)
[2017-05-07] MEDS: DiphenhydrAMINE 50 mg/ml Inj IVP PRN ×3 (09:01→19:38)
[2017-05-07] MEDS: HYDROmorphone 0.5 mg/0.5 ml ISec IVP PRN ×3 (09:01→19:38)
[2017-05-07] MEDS: Epoetin Alfa 10,000 unit/ml Dialysis IV SCH ×2 (10:48→17:48)
[2017-05-07] MEDS: Oxycodone/Acetaminophen 5/325 mg Tab PO PRN ×2 (11:55→22:46)
--- NOTE | 2017-05-07 12:16 | CP.PCM.PN ---
Subjective - Date & Time of Evaluation Date of Evaluation: 05/07/17 Time of Evaluation: 12:14 - Subjective Subjective: seen and examined c/o left leg pain for hd today Objective - Vital Signs/Intake and Output Vital Signs (last 24 hours): Temp Pulse Resp BP Pulse Ox 98.0 F 99 H 20 160/78 H 97 05/07/17 08:09 05/07/17 08:09 05/07/17 08:09 05/07/17 08:09 05/07/17 08:09 - Medications Medications: Current Medications Acetaminophen (Tylenol 325mg Tab) 650 mg PO Q8H [facility] Last Admin: 05/07/17 08:02 Dose: Not Given Acyclovir (Zovirax 5% Oint) 1 gm EXT Q3H [facility] Last Admin: 05/07/17 11:48 Dose: Not Given Aspirin (Ecotrin) 81 mg PO DAILY [facility] Last Admin: 05/07/17 09:00 Dose: 81 mg Calcium Acetate (Phoslo) 2,668 mg PO TIDCC [facility] Last Admin: 05/07/17 11:55 Dose: 2,668 mg Clopidogrel Bisulfate (Plavix) 75 mg PO DAILY [facility] Last Admin: 05/07/17 09:00 Dose: 75 mg Diphenhydramine HCl (Benadryl) 25 mg IVP Q5H PRN PRN Reason: Itching / Pruritus Last Admin: 05/07/17 09:01 Dose: 25 mg Epoetin Alec (Procrit) 10,000 unit IV TTS [facility] Last Admin: 05/07/17 10:48 Dose: Not Given Famotidine (Pepcid) 20 mg PO DAILY [facility] Last Admin: 05/07/17 09:00 Dose: 20 mg Gabapentin (Neurontin) 100 mg PO QPM [facility] Last Admin: 05/06/17 17:47 Dose: 100 mg Heparin Sodium (Porcine) (Heparin) 5,000 units SC Q12 [facility] Last Admin: 05/07/17 09:00 Dose: Not Given Hydromorphone HCl (Dilaudid) 0.5 mg IVP Q5H PRN PRN Reason: Pain, moderate (4-7) Last Admin: 05/07/17 09:01 Dose: 0.5 mg Meropenem 500 mg/ Sodium (Chloride) 100 mls @ 100 mls/hr IVPB Q12H [facility] Last Admin: 12/05/17 02:08 Dose: 100 mls/hr Insulin Glargine (Lantus) 10 unit SC HS [facility] Last Admin: 05/06/17 22:13 Dose: 10 u Insulin Human Regular (Novolin R) 0 unit SC ACHS [facility] PRN Reason: Protocol Last Admin: 05/07/17 11:55 Dose: 1 unit Oxycodone/Acetaminophen (Percocet 5/325 Mg Tab) 2 tab PO Q6H PRN PRN Reason: Pain, moderate (4-7) IF NO IV Stop: 05/07/17 17:48 Last Admin: 05/07/17 11:55 Dose: 2 tab Saccharomyces Boulardii (Florastor) 250 mg PO TID [facility] Last Admin: 05/07/17 09:00 Dose: 250 mg Vitamin B Complex/Vit C/Folic Acid (Nephro-Cony) 1 tab PO 0800 [facility] Last Admin: 05/07/17 09:00 Dose: 1 tab - Labs Labs: 05/04/17 11:00 05/04/17 11:00 - Constitutional Appears: Older Than Stated Age, Cachectic, Chronically Ill - Head Exam Head Exam: NORMAL INSPECTION - Eye Exam Eye Exam: Normal appearance - ENT Exam ENT Exam: Mucous Membranes Moist, Normal Exam - Neck Exam Neck Exam: Normal Inspection - Respiratory Exam Respiratory Exam: Clear to Ausculation Bilateral, NORMAL BREATHING PATTERN - Cardiovascular Exam Cardiovascular Exam: REGULAR RHYTHM, RRR - GI/Abdominal Exam GI & Abdominal Exam: Distended, Soft Additional comments: colostomy - Extremities Exam Additional comments: rle bka - Neurological Exam Neurological Exam: Alert, Awake - Psychiatric Exam Psychiatric exam: Normal Affect, Normal Mood Assessment and Plan (1) End-stage renal disease on hemodialysis Status: Acute (2) Gangrene associated with type 2 diabetes mellitus Status: Acute (3) S/P BKA (below knee amputation) unilateral Status: Acute (4) Type 2 diabetes mellitus with diabetic nephropathy Status: Acute (5) Anemia Status: Acute - Assessment and Plan (Free Text) Assessment: dialysis TTS monitor BP labs w/ hd eventual colostomy reversal surgical follow up for gangrene
[2017-05-07 15:43] LABS: HEMATOCRIT 25.4 % (34.0-47.0); MEAN CELL VOLUME 99.6 fL (81.0-99.0); MEAN CORPUSCULAR HEMOGLOBIN 31.6 pg (27.0-31.0); MEAN CORPUSCULAR HGB CONC 31.7 g/dL (33.0-37.0); MEAN PLATELET VOLUME 8.5 fL (7.2-11.7); RED CELL DISTRIBUTION WIDTH 20.2 % (11.5-14.5); WHITE BLOOD COUNT 12.9 K/uL (4.8-10.8)
[2017-05-07 15:57] LABS: ALB/GLOB RATIO 0.7 (1.0-2.1); BILIRUBIN,TOTAL 0.4 mg/dL (0.2-1.3); CALCIUM 10.2 mg/dl (8.6-10.4); PHOSPHOROUS 5.2 mg/dL (2.5-4.5); POTASSIUM 6.6 mmol/L (3.6-5.2); TOTAL PROTEIN 7.7 g/dL (6.3-8.3)
--- NOTE | 2017-05-07 16:20 | CP.PCM.PN ---
Subjective - Date & Time of Evaluation Date of Evaluation: 05/07/17 Time of Evaluation: 16:20 - Subjective Subjective: patient was seen by me at 850 p.m. Patient is comfortable. But complaining of increasing pain, sometimes she is also crying, and depressed. Gabapentin is helping slightly. Objective - Vital Signs/Intake and Output Vital Signs (last 24 hours): Temp Pulse Resp BP Pulse Ox 98.0 F 99 H 20 160/78 H 97 colostomy draining liquid stools. no abdominal pain. No nausea. Tolerating the food Intake and Output: On examination: HEENT PERRLA, neck supple No thyromegaly was noted and no cervical adenopathy noted Chest bilateral good air entry, no wheezing or rales noted CVS regular heart sound, no murmur colostomy right leg amputation. 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 Admitted now with left foot gangrene. Patient is refusing for surgery. She wanted to go to have brother's house.
[2017-05-07] MEDS: (Lantus) Insulin Glargine, Recombinant SC SCH (22:46)
[2017-05-08] MEDS: Acyclovir 5% Oint (15 gm) EXT SCH ×9 (00:11→23:03)
[2017-05-08] MEDS: DiphenhydrAMINE 50 mg/ml Inj IVP PRN ×4 (00:54→18:40)
[2017-05-08] MEDS: HYDROmorphone 0.5 mg/0.5 ml ISec IVP PRN ×4 (00:54→18:40)
[2017-05-08] MEDS: Meropenem 500 MG in Sodium Chloride 0.9% 100 ML IVPB SCH ×2 (01:08→13:36)
[2017-05-08] MEDS: Multivitamin Vitamin B Complex (Nephro-Vite) Tab PO SCH (08:26)
[2017-05-08] MEDS: (Novolin R) Insulin Human Regular 100 units/ml vial SC SCH ×4 (08:29→21:41)
[2017-05-08] MEDS: Saccharomyces Boulardi 250 mg Cap PO SCH ×3 (10:55→17:24)
[2017-05-08] MEDS: Oxycodone/Acetaminophen 5/325 mg Tab PO PRN (10:55)
--- NOTE | 2017-05-08 14:19 | CP.PCM.PN ---
Subjective - Date & Time of Evaluation Date of Evaluation: 05/08/17 Time of Evaluation: 08:45 - Subjective Subjective: chronic pain in left leg no chest pain no sob appetite good no fever no chills no rash no diarrhea no vomiting no chest pain no bruises no headache Objective - Vital Signs/Intake and Output Vital Signs (last 24 hours): Temp Pulse Resp BP Pulse Ox 98.2 F 98 H 20 139/72 95 05/08/17 08:01 05/08/17 08:01 05/08/17 08:01 05/08/17 08:01 05/08/17 00:00 Intake and Output: 05/08/17 05/08/17 06:59 18:59 Output Total 200 Balance -200 - Medications Medications: Current Medications Acetaminophen (Tylenol 325mg Tab) 650 mg PO Q8H [facility] Last Admin: 05/08/17 07:45 Dose: Not Given Acyclovir (Zovirax 5% Oint) 1 gm EXT Q3H [facility] Last Admin: 05/08/17 14:16 Dose: Not Given Aspirin (Ecotrin) 81 mg PO DAILY [facility] Last Admin: 05/08/17 10:06 Dose: 81 mg Calcium Acetate (Phoslo) 2,668 mg PO TIDCC [facility] Last Admin: 05/08/17 11:03 Dose: 2,668 mg Clopidogrel Bisulfate (Plavix) 75 mg PO DAILY [facility] Last Admin: 05/08/17 10:55 Dose: 75 mg Diphenhydramine HCl (Benadryl) 25 mg IVP Q5H PRN PRN Reason: Itching / Pruritus Last Admin: 05/08/17 13:36 Dose: 25 mg Epoetin Alec (Procrit) 10,000 unit IV TTS [facility] Last Admin: 05/07/17 17:48 Dose: 10,000 unit Famotidine (Pepcid) 20 mg PO DAILY [facility] Last Admin: 05/08/17 10:54 Dose: 20 mg Gabapentin (Neurontin) 100 mg PO QPM [facility] Last Admin: 05/07/17 19:01 Dose: Not Given Heparin Sodium (Porcine) (Heparin) 5,000 units SC Q12 [facility] Last Admin: 05/08/17 10:10 Dose: Not Given Hydromorphone HCl (Dilaudid) 0.5 mg IVP Q5H PRN PRN Reason: Pain, moderate (4-7) Last Admin: 05/08/17 13:37 Dose: 0.5 mg Meropenem 500 mg/ Sodium (Chloride) 100 mls @ 100 mls/hr IVPB Q12H [facility] Last Admin: 05/08/17 13:36 Dose: 100 mls/hr Insulin Glargine (Lantus) 10 unit SC HS [facility] Last Admin: 05/07/17 22:46 Dose: 10 u Insulin Human Regular (Novolin R) 0 unit SC ACHS [facility] PRN Reason: Protocol Last Admin: 05/08/17 12:54 Dose: Not Given Oxycodone/Acetaminophen (Percocet 5/325 Mg Tab) 2 tab PO Q6H PRN PRN Reason: Pain, moderate (4-7) Stop: 05/10/17 22:40 Last Admin: 05/08/17 10:55 Dose: 2 tab Saccharomyces Boulardii (Florastor) 250 mg PO TID [facility] Last Admin: 05/08/17 13:36 Dose: 250 mg Vitamin B Complex/Vit C/Folic Acid (Nephro-Cony) 1 tab PO 0800 [facility] Last Admin: 05/08/17 08:26 Dose: 1 tab - Labs Labs: 05/07/17 15:37 05/07/17 15:37 - Constitutional Appears: Non-toxic, Chronically Ill - Head Exam Head Exam: ATRAUMATIC, NORMAL INSPECTION - Eye Exam Eye Exam: EOMI, Normal appearance - ENT Exam ENT Exam: Mucous Membranes Moist. absent: Mucous Membranes Dry - Neck Exam Neck Exam: Full ROM. absent: Lymphadenopathy - Respiratory Exam Respiratory Exam: Decreased Breath Sounds. absent: Accessory Muscle Use, Clear to Ausculation Bilateral - Cardiovascular Exam Cardiovascular Exam: REGULAR RHYTHM. absent: Rubs - GI/Abdominal Exam GI & Abdominal Exam: Soft. absent: Tenderness Additional comments: colostomy - Extremities Exam Additional comments: left foot ischemic changes - Neurological Exam Neurological Exam: Alert, Oriented x3 Assessment and Plan - Assessment and Plan (Free Text) Assessment: esrd, maint HD in am for left bka continue wound care and pain management
[2017-05-08] MEDS: HYDROmorphone 0.5 mg/0.5 ml ISec IM PRN (19:55)
[2017-05-08] MEDS: (Lantus) Insulin Glargine, Recombinant SC SCH (22:19)
[2017-05-09] MEDS: Meropenem 500 MG in Sodium Chloride 0.9% 100 ML IVPB SCH ×2 (02:00→14:16)
[2017-05-09] MEDS: Acyclovir 5% Oint (15 gm) EXT SCH ×7 (02:01→20:53)
[2017-05-09 07:23] LABS: HEMATOCRIT 26.2 % (34.0-47.0); MEAN CORPUSCULAR HEMOGLOBIN 31.9 pg (27.0-31.0); MEAN CORPUSCULAR HGB CONC 32.2 g/dL (33.0-37.0); MEAN PLATELET VOLUME 8.5 fL (7.2-11.7); RED CELL DISTRIBUTION WIDTH 20.7 % (11.5-14.5); WHITE BLOOD COUNT 12.3 K/uL (4.8-10.8)
[2017-05-09] MEDS: (Novolin R) Insulin Human Regular 100 units/ml vial SC SCH ×4 (08:04→21:24)
--- NOTE | 2017-05-09 08:51 | CP.PCM.CON ---
History of Present Illness - History of Present Illness History of Present Illness: 51 year old female well known to podiatry service seen for evaluation of left heel gangrene. Pt is s/p right BKA amputation, though states gangrene presentation has quickly developed in recent weeks in comparison to progression timeline of previous, now absent contralateral limb. Pt reports continuous chronic left foot pain graded "7/10" mildly controlled with pain medications. Pt deneis recent f/c/cp/sob/n/v. Past Patient History - Infectious Disease Hx of Infectious Diseases: None - Past Medical History & Family History Past Medical History?: Yes - Past Social History Smoking Status: Former Smoker Chewing Tobacco Use: No Cigar Use: No Alcohol: None Drugs: Prescription medications - CARDIAC Hx Hypertension: Yes - PULMONARY Hx Respiratory Disorders: Yes Hx Bronchitis: Yes Hx Pneumonia: No - NEUROLOGICAL Hx Neurological Disorder: No - HEENT Hx HEENT Problems: No - RENAL Hx Chronic Kidney Disease: Yes Hx Dialysis: Yes Type of Dialysis Access: HD Date of Last Dialysis Treatment: 04/30/17 - ENDOCRINE/METABOLIC Hx Endocrine Disorders: Yes Hx Diabetes Mellitus Type 2: Yes - HEMATOLOGICAL/ONCOLOGICAL Hx Blood Disorders: Yes Hx Anemia: Yes - INTEGUMENTARY Hx Dermatological Problems: Yes Hx Eczema: Yes - MUSCULOSKELETAL/RHEUMATOLOGICAL Hx Musculoskeletal Disorders: Yes Hx Falls: Yes Other/Comment: bka - GASTROINTESTINAL Hx Gastrointestinal Disorders: Yes Hx Colostomy: Yes - GENITOURINARY/GYNECOLOGICAL Hx Genitourinary Disorders: Yes (DX: RENAL FAILURE) - PSYCHIATRIC Hx Psychophysiologic Disorder: Yes Hx Anxiety: Yes Hx Substance Use: No - SURGICAL HISTORY Hx Surgeries: Yes Hx Amputation: Yes (RBK) Hx Section: Yes Hx Eye Surgery: Yes (INSERT "GAS" BUBBLE BOTH EYES) Hx Tubal Ligation: Yes Hx Vascular Access Device: Yes (R SC HD cath) Other/Comment: I&D GROIN; 12/30/14 LAPAROSCOPIC INSERTION PERITONEAL DIALYSIS CATHETER. 01/14/15 REVISION DONE OF PERITIONEAL DIALYSIS CATH. - ANESTHESIA Hx Anesthesia: Yes Hx Anesthesia Reactions: No Hx Malignant Hyperthermia: No Meds Allergies/Adverse Reactions: Allergies Allergy/AdvReac Type Severity Reaction Status Date / Time shrimp Allergy Severe RASH Verified 05/01/17 15:30 - Medications Medications: Current Medications Acetaminophen (Tylenol 325mg Tab) 650 mg PO Q8H [facility] Last Admin: 05/09/17 08:04 Dose: Not Given Acyclovir (Zovirax 5% Oint) 1 gm EXT Q3H [facility] Last Admin: 05/09/17 08:04 Dose: Not Given Aspirin (Ecotrin) 81 mg PO DAILY [facility] Last Admin: 05/08/17 10:06 Dose: 81 mg Calcium Acetate (Phoslo) 2,668 mg PO TIDCC [facility] Last Admin: 05/08/17 17:22 Dose: 2,668 mg Clopidogrel Bisulfate (Plavix) 75 mg PO DAILY [facility] Last Admin: 05/08/17 10:55 Dose: 75 mg Diphenhydramine HCl (Benadryl) 25 mg IVP Q5H PRN PRN Reason: Itching / Pruritus Last Admin: 05/08/17 13:36 Dose: 25 mg Diphenhydramine HCl (Benadryl) 25 mg PO Q5H PRN PRN Reason: Itching / Pruritus Last Admin: 05/08/17 19:55 Dose: 25 mg Epoetin Alec (Procrit) 10,000 unit IV TTS [facility] Last Admin: 05/07/17 17:48 Dose: 10,000 unit Famotidine (Pepcid) 20 mg PO DAILY [facility] Last Admin: 05/08/17 10:54 Dose: 20 mg Gabapentin (Neurontin) 100 mg PO QPM [facility] Last Admin: 05/08/17 17:24 Dose: 100 mg Heparin Sodium (Porcine) (Heparin) 5,000 units SC Q12 [facility] Last Admin: 05/08/17 22:21 Dose: Not Given Hydromorphone HCl (Dilaudid) 0.5 mg IVP Q5H PRN PRN Reason: Pain, moderate (4-7) Last Admin: 05/08/17 13:37 Dose: 0.5 mg Hydromorphone HCl (Dilaudid) 0.5 mg IM Q5H PRN PRN Reason: Pain, severe (8-10) Last Admin: 05/08/17 19:55 Dose: 0.5 mg Meropenem 500 mg/ Sodium (Chloride) 100 mls @ 100 mls/hr IVPB Q12H [facility] Last Admin: 05/09/17 02:00 Dose: Not Given Insulin Glargine (Lantus) 10 unit SC HS [facility] Last Admin: 05/08/17 22:19 Dose: 10 units Insulin Human Regular (Novolin R) 0 unit SC ACHS [facility] PRN Reason: Protocol Last Admin: 05/09/17 08:04 Dose: Not Given Oxycodone/Acetaminophen (Percocet 5/325 Mg Tab) 2 tab PO Q6H PRN PRN Reason: Pain, moderate (4-7) Stop: 05/10/17 22:40 Last Admin: 05/08/17 10:55 Dose: 2 tab Saccharomyces Boulardii (Florastor) 250 mg PO TID [facility] Last Admin: 05/08/17 17:24 Dose: 250 mg Vitamin B Complex/Vit C/Folic Acid (Nephro-Cony) 1 tab PO 0800 [facility] Last Admin: 05/08/17 08:26 Dose: 1 tab Physical Exam - Constitutional Appears: Well, Non-toxic, No Acute Distress - Extremities Exam Additional comments: Right lower leg below knee amputation noted. Left lower extremity focused. VASC: DP and PT pulses non-palpable. Temperature runs cool to cold proximal to distal. NEURO: Protective sensation and 2 point discrimination largely absent. DERM: Dry necrotic heel eschar noted measuring 5x4.2 cm, absent fluctuance, and shaniqua-wound erythema. Complete digital dry necrosis present to great toe and 3rd digit. Atrophic presentation to left 2nd and 4th digits. MUSK: Tenderness to deep palpation along entire foot below level of knee. No gross deformities noted. - Neurological Exam Neurological exam: Alert, Oriented x3 - Psychiatric Exam Psychiatric exam: Normal Affect, Normal Mood Results - Vital Signs Recent Vital Signs: Last Vital Signs Temp 98.1 F 05/09/17 08:17 Pulse 93 H 05/09/17 08:17 Resp 20 05/09/17 08:17 BP 147/72 05/09/17 08:17 Pulse Ox 96 05/09/17 08:17 - Labs Result Diagrams: 05/09/17 07:07 05/07/17 15:37 Labs: Laboratory Results - last 24 hr 05/08/17 05/08/17 05/09/17 16:23 21:33 02:07 WBC RBC Hgb Hct MCV MCH MCHC RDW Plt Count MPV POC Glucose (mg/dL) 191 H 120 H 172 H 05/09/17 05/09/17 06:00 07:07 WBC 12.3 H RBC 2.64 L Hgb 8.4 L Hct 26.2 L MCV 99.0 MCH 31.9 H MCHC 32.2 L RDW 20.7 H Plt Count 344 MPV 8.5 POC Glucose (mg/dL) 135 H Assessment & Plan - Assessment and Plan (Free Text) Assessment: 51 year old female with left foot diffuse pedal gangrene, secondary to ischemia Plan: Pt was evaluated and treated with attending Dr. Oakley present. Ischemia and dry gangrene changes progressive. Continue managing lower extremity pain with analgesics. Recommending and discussed with patient indication for definitive treatment via left side BKA. -Discussed fabrication of prosthesis will allow ambulation ability. - Will discuss with Dr. Clark Podiatry will follow while inhouse. - Date & Time Date: 05/09/17 Time: 08:51
[2017-05-09 08:53] LABS: CALCIUM 9.8 mg/dl (8.6-10.4); TOTAL PROTEIN 6.7 g/dL (6.3-8.3)
[2017-05-09 08:54] LABS: BILIRUBIN,TOTAL 0.5 mg/dL (0.2-1.3); POTASSIUM 5.8 mmol/L (3.6-5.2)
[2017-05-09] MEDS: Multivitamin Vitamin B Complex (Nephro-Vite) Tab PO SCH (08:55)
--- NOTE | 2017-05-09 10:05 | CP.PCM.PN ---
Subjective - Date & Time of Evaluation Date of Evaluation: 05/09/17 Time of Evaluation: 09:56 - Subjective Subjective: Seen on dialysis; weak but about same. Considering left BKA HTN increased now- better before Has been upset about possible BKA, seems to be acceptive now Objective - Vital Signs/Intake and Output Vital Signs (last 24 hours): Temp Pulse Resp BP Pulse Ox 98.1 F 93 H 20 147/72 96 05/09/17 08:17 05/09/17 08:17 05/09/17 08:17 05/09/17 08:17 05/09/17 08:17 Intake and Output: 05/09/17 05/09/17 06:59 18:59 Intake Total 620 Balance 620 - Medications Medications: Current Medications Acetaminophen (Tylenol 325mg Tab) 650 mg PO Q8H [facility] Last Admin: 05/09/17 08:04 Dose: Not Given Acyclovir (Zovirax 5% Oint) 1 gm EXT Q3H [facility] Last Admin: 05/09/17 08:04 Dose: Not Given Aspirin (Ecotrin) 81 mg PO DAILY [facility] Last Admin: 05/08/17 10:06 Dose: 81 mg Calcium Acetate (Phoslo) 2,668 mg PO TIDCC [facility] Last Admin: 05/09/17 08:55 Dose: Not Given Clopidogrel Bisulfate (Plavix) 75 mg PO DAILY [facility] Last Admin: 05/08/17 10:55 Dose: 75 mg Diphenhydramine HCl (Benadryl) 25 mg IVP Q5H PRN PRN Reason: Itching / Pruritus Last Admin: 05/08/17 13:36 Dose: 25 mg Diphenhydramine HCl (Benadryl) 25 mg PO Q5H PRN PRN Reason: Itching / Pruritus Last Admin: 05/08/17 19:55 Dose: 25 mg Epoetin Alec (Procrit) 10,000 unit IV TTS [facility] Last Admin: 05/07/17 17:48 Dose: 10,000 unit Famotidine (Pepcid) 20 mg PO DAILY [facility] Last Admin: 05/08/17 10:54 Dose: 20 mg Gabapentin (Neurontin) 100 mg PO QPM [facility] Last Admin: 05/08/17 17:24 Dose: 100 mg Heparin Sodium (Porcine) (Heparin) 5,000 units SC Q12 [facility] Last Admin: 05/08/17 22:21 Dose: Not Given Hydromorphone HCl (Dilaudid) 0.5 mg IVP Q5H PRN PRN Reason: Pain, moderate (4-7) Last Admin: 05/08/17 13:37 Dose: 0.5 mg Hydromorphone HCl (Dilaudid) 0.5 mg IM Q5H PRN PRN Reason: Pain, severe (8-10) Last Admin: 05/08/17 19:55 Dose: 0.5 mg Meropenem 500 mg/ Sodium (Chloride) 100 mls @ 100 mls/hr IVPB Q12H [facility] Last Admin: 05/09/17 02:00 Dose: Not Given Insulin Glargine (Lantus) 10 unit SC HS [facility] Last Admin: 05/08/17 22:19 Dose: 10 units Insulin Human Regular (Novolin R) 0 unit SC ACHS [facility] PRN Reason: Protocol Last Admin: 05/09/17 08:04 Dose: Not Given Oxycodone/Acetaminophen (Percocet 5/325 Mg Tab) 2 tab PO Q6H PRN PRN Reason: Pain, moderate (4-7) Stop: 05/10/17 22:40 Last Admin: 05/08/17 10:55 Dose: 2 tab Saccharomyces Boulardii (Florastor) 250 mg PO TID [facility] Last Admin: 05/08/17 17:24 Dose: 250 mg Vitamin B Complex/Vit C/Folic Acid (Nephro-Cony) 1 tab PO 0800 [facility] Last Admin: 05/09/17 08:55 Dose: Not Given - Labs Labs: 05/09/17 07:07 05/09/17 07:07 - Constitutional Appears: No Acute Distress, Chronically Ill - Head Exam Head Exam: ATRAUMATIC, NORMAL INSPECTION - Eye Exam Eye Exam: EOMI, Normal appearance - Neck Exam Neck Exam: Normal Inspection. absent: Tenderness - Respiratory Exam Respiratory Exam: Clear to Ausculation Bilateral, NORMAL BREATHING PATTERN - Cardiovascular Exam Cardiovascular Exam: REGULAR RHYTHM, +S1 - GI/Abdominal Exam GI & Abdominal Exam: Soft. absent: Tenderness - Extremities Exam Extremities Exam: Normal Inspection. absent: Tenderness - Neurological Exam Neurological Exam: Awake, CN II-XII Intact - Skin Skin Exam: Dry, Warm Assessment and Plan (1) Type 2 diabetes mellitus with diabetic nephropathy Status: Acute (2) S/P BKA (below knee amputation) unilateral Status: Acute (3) End-stage renal disease on hemodialysis Status: Acute (4) Fluid overload Status: Acute (5) Type 2 diabetes mellitus with diabetic nephropathy Status: Acute (6) Gangrene associated with type 2 diabetes mellitus Status: Acute - Assessment and Plan (Free Text) Plan: UF 3000ml now dialysis TTS considering left BKA monitor BP- has been labile- might decrease post dialysis
[2017-05-09] MEDS: Saccharomyces Boulardi 250 mg Cap PO SCH ×3 (10:30→18:16)
[2017-05-09] MEDS: Epoetin Alfa 10,000 unit/ml Dialysis IV SCH (11:14)
[2017-05-09] MEDS ORDERED: Sodium Chloride 0.9% 250 ML IV ONE (13:39)
--- NOTE | 2017-05-09 18:12 | CP.PCM.PN ---
Subjective - Date & Time of Evaluation Date of Evaluation: 05/05/17 Time of Evaluation: 18:12 - Subjective Subjective: pain is tolerable. Complaining of nausea. But no vomiting. Patient is eating well. Had dialysis yesterday. Objective - Vital Signs/Intake and Output Vital Signs (last 24 hours): Temp Pulse Resp BP Pulse Ox 97.9 F 101 H 20 134/63 98 On examination: HEENT PERRLA, neck supple No thyromegaly was noted and no cervical adenopathy noted Chest bilateral good air entry, no wheezing or rales noted CVS regular heart sound, no murmur the colostomy site is clean. 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 Currently having active ischemia, gangrene of the left foot. I suggested for surgical intervention, but patient is reluctant. Podiatry followup. Surgical followup. Continue the hemodialysis. Will speak to the patient for further treatment. On IV antibiotic
--- NOTE | 2017-05-09 18:18 | CP.PCM.PN ---
Subjective - Date & Time of Evaluation Date of Evaluation: 05/08/17 Time of Evaluation: 18:18 - Subjective Subjective: patient was seen by replanting machine crew at this morning. I spoke to the replanting machine crew, and according to him. Patient will need definite surgery, possibly amputation of the left foot also. But patient is to agreed in the beginning, she is reluctant now. Yesterday hemodialysis. Patient had episode of hypotension. Objective - Vital Signs/Intake and Output Vital Signs (last 24 hours): Temp Pulse Resp BP Pulse Ox 97.9 F 101 H 20 134/63 98 On examination: HEENT PERRLA, neck supple No thyromegaly was noted and no cervical adenopathy noted Chest bilateral good air entry, no wheezing or rales noted CVS regular heart sound, no murmur colostomy. 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 Intake and Output: 05/09/17 05/09/17 06:59 18:59 Intake Total 620 300 Output Total 3000 Balance 620 -2700 - Medications Medications: Current Medications Acetaminophen (Tylenol 325mg Tab) 650 mg PO Q8H [facility] Last Admin: 05/09/17 16:42 Dose: Not Given Acyclovir (Zovirax 5% Oint) 1 gm EXT Q3H [facility] Last Admin: 05/09/17 14:17 Dose: Not Given Aspirin (Ecotrin) 81 mg PO DAILY [facility] Last Admin: 05/09/17 10:29 Dose: Not Given Calcium Acetate (Phoslo) 2,668 mg PO TIDCC [facility] Last Admin: 05/09/17 11:31 Dose: Not Given Clopidogrel Bisulfate (Plavix) 75 mg PO DAILY [facility] Last Admin: 05/09/17 10:31 Dose: Not Given Diphenhydramine HCl (Benadryl) 25 mg IVP Q5H PRN PRN Reason: Itching / Pruritus Last Admin: 05/08/17 13:36 Dose: 25 mg Diphenhydramine HCl (Benadryl) 25 mg PO Q5H PRN PRN Reason: Itching / Pruritus Last Admin: 05/09/17 14:48 Dose: 25 mg Epoetin Alec (Procrit) 10,000 unit IV TTS [facility] Last Admin: 05/09/17 11:14 Dose: 10,000 unit Famotidine (Pepcid) 20 mg PO DAILY [facility] Last Admin: 05/09/17 10:30 Dose: Not Given Gabapentin (Neurontin) 100 mg PO QPM [facility] Last Admin: 05/08/17 17:24 Dose: 100 mg Heparin Sodium (Porcine) (Heparin) 5,000 units SC Q12 [facility] Last Admin: 05/09/17 10:30 Dose: Not Given Hydromorphone HCl (Dilaudid) 0.5 mg IVP Q5H PRN PRN Reason: Pain, moderate (4-7) Last Admin: 05/08/17 13:37 Dose: 0.5 mg Hydromorphone HCl (Dilaudid) 0.5 mg IM Q5H PRN PRN Reason: Pain, severe (8-10) Last Admin: 05/08/17 19:55 Dose: 0.5 mg Meropenem 500 mg/ Sodium (Chloride) 100 mls @ 100 mls/hr IVPB Q12H [facility] Last Admin: 05/09/17 14:16 Dose: Not Given Insulin Glargine (Lantus) 10 unit SC HS [facility] Last Admin: 05/08/17 22:19 Dose: 10 units Insulin Human Regular (Novolin R) 0 unit SC ACHS [facility] PRN Reason: Protocol Last Admin: 05/09/17 11:30 Dose: Not Given Oxycodone/Acetaminophen (Percocet 5/325 Mg Tab) 2 tab PO Q6H PRN PRN Reason: Pain, moderate (4-7) Stop: 05/10/17 22:40 Last Admin: 05/08/17 10:55 Dose: 2 tab Saccharomyces Boulardii (Florastor) 250 mg PO TID [facility] Last Admin: 05/09/17 14:40 Dose: 250 mg Vitamin B Complex/Vit C/Folic Acid (Nephro-Cony) 1 tab PO 0800 [facility] Last Admin: 05/09/17 08:55 Dose: Not Given - Labs Labs: 05/09/17 07:07 05/09/17 07:07 Assessment and Plan - Assessment and Plan (Free Text) Assessment: patient with multiple medical problems. Will continue the IV antibiotic. Infectious disease evaluation.
[2017-05-09] MEDS: Oxycodone/Acetaminophen 5/325 mg Tab PO PRN (18:30)
--- NOTE | 2017-05-09 18:32 | CP.PCM.PN ---
Subjective - Date & Time of Evaluation Date of Evaluation: 05/09/17 Time of Evaluation: 18:29 - Subjective Subjective: I spoke to the patient this morning before the hemodialysis, at that time she was fine, her blood pressure was good. Post hemodialysis patient developed episode of hypotension. 3 liters of fluid removed doing the hemodialysis,and the post hemodialysis, hypotension was treated conservatively. still having pain. Awaiting for PICC line. Will be seen by infectious disease today. Abdominal wound is healing well. Colostomy site is clear. Right below-knee amputation site is clean. Dry gangrene of the left foot noted. Patient is eating well. Objective - Vital Signs/Intake and Output Vital Signs (last 24 hours): Temp Pulse Resp BP Pulse Ox 97.9 F 101 H 20 134/63 98 05/09/17 17:25 05/09/17 17:25 05/09/17 17:25 05/09/17 17:25 05/09/17 17:25 Intake and Output: 05/09/17 05/09/17 06:59 18:59 Intake Total 620 300 Output Total 3000 Balance 620 -2700 On examination: HEENT PERRLA, neck supple No thyromegaly was noted and no cervical adenopathy noted Chest bilateral good air entry, no wheezing or rales noted CVS regular heart sound, no murmur colostomy noted below-knee amputation, right side. Left ganglion noted [employer] alert awake oriented x3 no functional neurological deficit - Medications Medications: Current Medications Acetaminophen (Tylenol 325mg Tab) 650 mg PO Q8H [facility] Last Admin: 05/09/17 16:42 Dose: Not Given Acyclovir (Zovirax 5% Oint) 1 gm EXT Q3H [facility] Last Admin: 05/09/17 18:18 Dose: Not Given Aspirin (Ecotrin) 81 mg PO DAILY [facility] Last Admin: 05/09/17 10:29 Dose: Not Given Calcium Acetate (Phoslo) 2,668 mg PO TIDCC [facility] Last Admin: 05/09/17 18:17 Dose: 2,668 mg Clopidogrel Bisulfate (Plavix) 75 mg PO DAILY [facility] Last Admin: 05/09/17 10:31 Dose: Not Given Diphenhydramine HCl (Benadryl) 25 mg IVP Q5H PRN PRN Reason: Itching / Pruritus Last Admin: 05/08/17 13:36 Dose: 25 mg Diphenhydramine HCl (Benadryl) 25 mg PO Q5H PRN PRN Reason: Itching / Pruritus Last Admin: 05/09/17 14:48 Dose: 25 mg Epoetin Alec (Procrit) 10,000 unit IV TTS [facility] Last Admin: 05/09/17 11:14 Dose: 10,000 unit Famotidine (Pepcid) 20 mg PO DAILY [facility] Last Admin: 05/09/17 10:30 Dose: Not Given Gabapentin (Neurontin) 100 mg PO QPM [facility] Last Admin: 05/09/17 18:17 Dose: 100 mg Heparin Sodium (Porcine) (Heparin) 5,000 units SC Q12 [facility] Last Admin: 05/09/17 10:30 Dose: Not Given Hydromorphone HCl (Dilaudid) 0.5 mg IVP Q5H PRN PRN Reason: Pain, moderate (4-7) Last Admin: 05/08/17 13:37 Dose: 0.5 mg Hydromorphone HCl (Dilaudid) 0.5 mg IM Q5H PRN PRN Reason: Pain, severe (8-10) Last Admin: 05/08/17 19:55 Dose: 0.5 mg Meropenem 500 mg/ Sodium (Chloride) 100 mls @ 100 mls/hr IVPB Q12H [facility] Last Admin: 05/09/17 14:16 Dose: Not Given Insulin Glargine (Lantus) 10 unit SC HS [facility] Last Admin: 05/08/17 22:19 Dose: 10 units Insulin Human Regular (Novolin R) 0 unit SC ACHS [facility] PRN Reason: Protocol Last Admin: 05/09/17 18:18 Dose: 3 unit Oxycodone/Acetaminophen (Percocet 5/325 Mg Tab) 2 tab PO Q6H PRN PRN Reason: Pain, moderate (4-7) Stop: 05/10/17 22:40 Last Admin: 05/08/17 10:55 Dose: 2 tab Saccharomyces Boulardii (Florastor) 250 mg PO TID [facility] Last Admin: 05/09/17 18:16 Dose: 250 mg Vitamin B Complex/Vit C/Folic Acid (Nephro-Cony) 1 tab PO 0800 [facility] Last Admin: 05/09/17 08:55 Dose: Not Given - Labs Labs: 12/07/17 07:07 05/09/17 07:07 Assessment and Plan - Assessment and Plan (Free Text) Assessment: multiple episodes of hypotension during the dialysis. Will discuss with the renal continue the current treatment. no chest pain. Pain still persistently present. Taking the pain medicine. Awaiting for PICC line. Antibiotic as per ID
--- NOTE | 2017-05-09 18:35 | PCM.RRT ---
<Kerry Pugh - Last Filed: 05/09/17 18:30> ON SITE NURSE Nurses Assessment - Situation Date: 05/09/17 Time ON SITE NURSE was called: 13:28 - Constitutional Appears: No Acute Distress - Head Head Exam: ATRAUMATIC, NORMAL INSPECTION - Eyes Eye Exam: EOMI, Normal appearance - Respiratory Exam Respiratory Exam: Clear to Ausculation Bilateral, NORMAL BREATHING PATTERN. absent: Rales, Rhonchi, Wheezes, Respiratory Distress - Cardiovascular Exam Cardiovascular Exam: REGULAR RHYTHM, +S1, +S2 - GI/Abdominal Exam GI & Abdominal Exam: Soft, Tenderness (s/p colostomy), Normal Bowel Sounds. absent: Firm Additional comments: right colostomy bag - Neurological Exam Neurological Exam: Alert, Awake, Oriented x3 - Extremities Exam Extremities Exam: absent: Normal Inspection Additional comments: right bka Plan - Assessment of Findings&Treatment Plan ON SITE NURSE was called on this patient at 1:28pm for hypotension. Patient had just finished hemodialysis. Blood pressure taken post HD was 147/72, and then retaken in the patient's room which was 84/47. ON SITE NURSE was then called. Patient was placed in shock position with foot end of bed elevated. Patient reported feeling dizzy at the time. Patient vitals were rechecked and BP was 124/60. Patient had no IV access at the time, nurses attempted getting IV access, but attempt was unsuccessful. PICC line was ordered and IR was consulted. NS bolus 250mls was ordered, but not administered due to lack of IV access. Patient was place in supine position (no longer in shock position) and vitals were recheck- 131/65. Patient was instructed to drink fluids. Patient was placed on telemetry and continuously monitored. Patient was seen approximately one hour later. Patient was asymptomatic, vitals were rechecked (BP 106/70) and stable. <Lolis Garzon V - Last Filed: 05/10/17 10:01> Attending/Attestation - Attestation I have personally seen and examined this patient.: Yes I have fully participated in the care of the patient.: Yes I have reviewed all pertinent clinical information, including history, physical exam and plan: Yes Notes (Text): This is a late computer entry for 05/09/17. Brief Hospitalist Note: Responded to ON SITE NURSE for hypontension, following completion of dialysis. Agree with resident note above. Discussed event with patient's PMD. Dr calvillo.
--- NOTE | 2017-05-09 18:45 | CP.PCM.CON ---
History of Present Illness - History of Present Illness History of Present Illness: 51F well known to ID service presents to ED after signing out AMA from [place] [facility]. She stated she was uncomfortable at the facility and felt she was being heavily sedated. 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 PMH: ESRD on dialysis, DM, PVD, HTN PSH: BKA on right leg, subtotal colectomy with ileostomy All: NKDA Med: As per medical record Review of Systems - Constitutional Constitutional: As Per HPI - EENT Eyes: absent: As Per HPI, Blind Spots, Blurred Vision, Change in Vision, Decreased Night Vision, Diplopia, Discharge, Dry Eye, Exophthalmos, Floaters, Irritation, Itchy Eyes, Loss of Peripheral Vision, Pain, Photophobia, Requires Corrective Lenses, Sees Flashes, Spots in Vision, Tunnel Vision, Other Visual Disturbances, Loss of Vision, Other Ears: absent: As Per HPI, Decreased Hearing, Ear Discharge, Ear Pain, Tinnitus, Abnormal Hearing, Disequilibrium, Dizziness, Other Nose/Mouth/Throat: absent: As Per HPI, Epistaxis, Nasal Congestion, Nasal Discharge, Nasal Obstruction, Nasal Trauma, Nose Pain, Post Nasal Drip, Sinus Pain, Sinus Pressure, Bleeding Gums, Change in Voice, Dental Pain, Dry Mouth, Dysphagia, Halitosis, Hoarsness, Lip Swelling, Mouth Lesions, Mouth Pain, Odynophagia, Sore Throat, Throat Swelling, Tongue Swelling, Facial Pain, Neck Pain, Neck Mass, Other - Breasts Breasts: absent: As Per HPI, Change in Shape, Mass, Pain, Nipple Discharge, Nipple Inversion, Skin Changes, Swelling, Other - Cardiovascular Cardiovascular: absent: As Per HPI, Acrocyanosis, Chest Pain, Chest Pain at Rest , Chest Pain with Activity, Claudication, Diaphoresis, Dyspnea, Dyspnea on Exertion, Edema, Irregular Heart Rhythm, Pain Radiating to Arm/Neck/Jaw, Leg Edema, Leg Ulcers, Lightheadedness, Orthopnea, Palpitations, Paroxysmal Nocturnal Dyspnea, Pedal Edema, Radiating Pain, Rapid Heart Rate, Slow Heart Rate, Syncope, Other - Respiratory Respiratory: absent: As Per HPI, Cough, Dyspnea, Hemoptysis, Dyspnea on Exertion , Wheezing, Snoring, Stridor, Pain on Inspiration, Chest Congestion, Excessive Mucous Production, Change in Mucous Color, Pain with Coughing, Other - Gastrointestinal Gastrointestinal: absent: As Per HPI, Abdominal Pain, Belching, Bloating, Change in Bowel Habits, Change in Stool Character, Coffee Ground Emesis, Constipation, Cramping, Diarrhea, Dyspepsia, Dysphagia, Early Satiety, Excessive Flatus, Fecal Incontinence, Heartburn, Hematemesis, Hematochezia, Loose Stools, Melena, Nausea, Odynophagia, Temesmus, Vomiting, Other - Genitourinary Genitourinary: absent: As Per HPI, Change in Urinary Stream, Difficulty Urinating, Dysuria, Flank Pain, Hematuria, Pyuria, Nocturia, Urinary Incontinence, Urinary Frequency, Urinary Hesitance, Urinary Urgency, Voiding Freq/Small Amts, Freq UTI, Hx Renal/Bladder Calculi, Hx /Renal Surgery, Bladder Distension, Other - Reproductive: Female Reproductive:Female: absent: As Per HPI, Amenorrhea, Amenorrhea/ Control, Currently Menstual, Cycle <21 Days, Cycle >35 Days, Cycle Variable, Menses 1-7 Days, Menses >/= 8 Days, Menses Variable, Cycle > 4 Weeks Between, No Menses for 6 Months, Heavy Menses, Light Menses, Normal Menses, Spotting Between Cycles , S/P Hysterectomy, Menopausal, Post Menopausal, Premenarche, Abnormal Vaginal Bleeding, Dysmenorrhea, Dyspareunia, Genital Lesions, Genital Pruritis, Pelvic Pain, Prolapse Symptoms, Sexual Dysfunction, Vaginal Discharge, Vaginal Dryness , Vaginal Odor, Vaginal Pruritis, Other - Menstruation Menstruation: absent: As Per HPI, Amenorrhea, Amenorrhea/ Control, Currently Menstual, Cycle <21 Days, Cycle >35 Days, Cycle Variable, Menses 1-7 Days, Menses >/= 8 Days, Menses Variable, Cycle > 4 Weeks Between, No Menses for 6 Months, Heavy Menses, Light Menses, Normal Menses, Spotting Between Cycles , S/P Hysterectomy, Menopausal, Post Menopausal, Premenarche, Abnormal Vaginal Bleeding, Dysmenorrhea, Other - Musculoskeletal Musculoskeletal: As Per HPI - Integumentary Integumentary: As Per HPI - Neurological Neurological: As Per HPI. absent: Abnormal Gait, Abnormal Hearing, Abnormal Movements, Abnormal Speech, Behavioral Changes, Burning Sensations, Confusion, Convulsions, Disequilibrium, Dizziness, Numbness, Focal Weakness, Frequent Falls , Headaches, Lack of Coordination, Loss of Vision, Memory Loss, Paresthesias, Radicular Pain, Restless Legs, Sensory Deficit, Syncope, Tingling, Tremor, Vertigo, Weakness, Other Visual Disturbances, Other - Psychiatric Psychiatric: As Per HPI - Endocrine Endocrine: absent: As Per HPI, Change in Body Appearance, Change in Libido, Cold Intolorance, Deepening of Voice, Excessive Sweating, Fatigue, Flushing, Heat Intolorance, Increase in Ring/Shoe/Hat Size, Palpitations, Polydipsia, Polyphagia, Polyuria, Other - Hematologic/Lymphatic Hematologic: absent: As Per HPI, Easy Bleeding, Easy Bruising, Lymphadenopathy, Other Past Patient History - Infectious Disease Hx of Infectious Diseases: None - Past Medical History & Family History Past Medical History?: Yes - Past Social History Smoking Status: Former Smoker Chewing Tobacco Use: No Cigar Use: No Alcohol: None Drugs: Prescription medications - CARDIAC Hx Cardiac Disorders: Yes Hx Hypercholesterolemia: Yes Hx Hypertension: Yes - PULMONARY Hx Respiratory Disorders: Yes Hx Bronchitis: Yes Hx Pneumonia: No - NEUROLOGICAL Hx Neurological Disorder: No - HEENT Hx HEENT Problems: No - RENAL Hx Chronic Kidney Disease: Yes Hx Dialysis: Yes Type of Dialysis Access: HD Date of Last Dialysis Treatment: 04/30/17 - ENDOCRINE/METABOLIC Hx Endocrine Disorders: Yes Hx Diabetes Mellitus Type 2: Yes - HEMATOLOGICAL/ONCOLOGICAL Hx Blood Disorders: Yes Hx Anemia: Yes - INTEGUMENTARY Hx Dermatological Problems: Yes Hx Eczema: Yes - MUSCULOSKELETAL/RHEUMATOLOGICAL Hx Musculoskeletal Disorders: Yes Hx Falls: Yes Other/Comment: bka - GASTROINTESTINAL Hx Gastrointestinal Disorders: Yes Hx Colostomy: Yes - GENITOURINARY/GYNECOLOGICAL Hx Genitourinary Disorders: Yes (DX: RENAL FAILURE) - PSYCHIATRIC Hx Psychophysiologic Disorder: Yes Hx Anxiety: Yes Hx Substance Use: No - SURGICAL HISTORY Hx Surgeries: Yes Hx Amputation: Yes (RBK) Hx Section: Yes Hx Eye Surgery: Yes (INSERT "GAS" BUBBLE BOTH EYES) Hx Tubal Ligation: Yes Hx Vascular Access Device: Yes (R SC HD cath) Other/Comment: I&D GROIN; 12/30/14 LAPAROSCOPIC INSERTION PERITONEAL DIALYSIS CATHETER. 01/14/15 REVISION DONE OF PERITIONEAL DIALYSIS CATH. - ANESTHESIA Hx Anesthesia: Yes Hx Anesthesia Reactions: No Hx Malignant Hyperthermia: No Meds Allergies/Adverse Reactions: Allergies Allergy/AdvReac Type Severity Reaction Status Date / Time shrimp Allergy Severe RASH Verified 05/01/17 15:30 - Medications Medications: Current Medications Acetaminophen (Tylenol 325mg Tab) 650 mg PO Q8H [facility] Last Admin: 05/09/17 16:42 Dose: Not Given Acyclovir (Zovirax 5% Oint) 1 gm EXT Q3H [facility] Last Admin: 05/09/17 18:18 Dose: Not Given Aspirin (Ecotrin) 81 mg PO DAILY [facility] Last Admin: 05/09/17 10:29 Dose: Not Given Calcium Acetate (Phoslo) 2,668 mg PO TIDCC [facility] Last Admin: 05/09/17 18:17 Dose: 2,668 mg Clopidogrel Bisulfate (Plavix) 75 mg PO DAILY [facility] Last Admin: 05/09/17 10:31 Dose: Not Given Diphenhydramine HCl (Benadryl) 25 mg IVP Q5H PRN PRN Reason: Itching / Pruritus Last Admin: 05/08/17 13:36 Dose: 25 mg Diphenhydramine HCl (Benadryl) 25 mg PO Q5H PRN PRN Reason: Itching / Pruritus Last Admin: 05/09/17 14:48 Dose: 25 mg Epoetin Alec (Procrit) 10,000 unit IV TTS [facility] Last Admin: 05/09/17 11:14 Dose: 10,000 unit Famotidine (Pepcid) 20 mg PO DAILY [facility] Last Admin: 05/09/17 10:30 Dose: Not Given Gabapentin (Neurontin) 100 mg PO QPM [facility] Last Admin: 05/09/17 18:17 Dose: 100 mg Heparin Sodium (Porcine) (Heparin) 5,000 units SC Q12 [facility] Last Admin: 05/09/17 10:30 Dose: Not Given Hydromorphone HCl (Dilaudid) 0.5 mg IVP Q5H PRN PRN Reason: Pain, moderate (4-7) Last Admin: 05/08/17 13:37 Dose: 0.5 mg Hydromorphone HCl (Dilaudid) 0.5 mg IM Q5H PRN PRN Reason: Pain, severe (8-10) Last Admin: 05/08/17 19:55 Dose: 0.5 mg Meropenem 500 mg/ Sodium (Chloride) 100 mls @ 100 mls/hr IVPB Q12H [facility] Last Admin: 05/09/17 14:16 Dose: Not Given Insulin Glargine (Lantus) 10 unit SC HS [facility] Last Admin: 05/08/17 22:19 Dose: 10 units Insulin Human Regular (Novolin R) 0 unit SC ACHS [facility] PRN Reason: Protocol Last Admin: 05/09/17 18:18 Dose: 3 unit Oxycodone/Acetaminophen (Percocet 5/325 Mg Tab) 2 tab PO Q6H PRN PRN Reason: Pain, moderate (4-7) Stop: 05/10/17 22:40 Last Admin: 05/09/17 18:30 Dose: 2 tab Saccharomyces Boulardii (Florastor) 250 mg PO TID [facility] Last Admin: 05/09/17 18:16 Dose: 250 mg Vitamin B Complex/Vit C/Folic Acid (Nephro-Cony) 1 tab PO 0800 [facility] Last Admin: 05/09/17 08:55 Dose: Not Given Physical Exam - Constitutional Appears: Cachectic, Chronically Ill - Head Exam Head Exam: ATRAUMATIC, NORMAL INSPECTION, NORMOCEPHALIC - Eye Exam Eye Exam: EOMI, PERRL. absent: Scleral icterus - ENT Exam ENT Exam: Mucous Membranes Dry, Normal External Ear Exam - Neck Exam Neck exam: Negative for: Lymphadenopathy - Respiratory Exam Respiratory Exam: Decreased Breath Sounds, Clear to Auscultation Bilateral - Cardiovascular Exam Cardiovascular Exam: REGULAR RHYTHM, +S1, +S2 - GI/Abdominal Exam GI & Abdominal Exam: Diminished Bowel Sounds, Distended, Soft. absent: Guarding , Rigid, Tenderness Additional comments: RLQ colostomy midline incision LLQ MANPREET Drain - Rectal Exam Rectal Exam: Deferred - Exam Exam: NORMAL INSPECTION - Extremities Exam Extremities exam: Negative for: calf tenderness, pedal edema, tenderness, pedal pulses present Additional comments: left bka right foot with ischemic changes - Back Exam Back exam: absent: CVA tenderness (L), CVA tenderness (R) Results - Vital Signs Recent Vital Signs: Last Vital Signs Temp 97.9 F 05/09/17 17:25 Pulse 101 H 05/09/17 17:25 Resp 20 05/09/17 17:25 BP 134/63 05/09/17 17:25 Pulse Ox 98 05/09/17 17:25 - Labs Result Diagrams: 05/09/17 07:07 05/09/17 07:07 Labs: Laboratory Results - last 24 hr 05/08/17 05/09/17 05/09/17 21:33 02:07 06:00 WBC RBC Hgb Hct MCV MCH MCHC RDW Plt Count MPV Sodium Potassium Chloride Carbon Dioxide Anion Gap BUN Creatinine Est GFR ( Amer) Est GFR (Non-Af Amer) POC Glucose (mg/dL) 120 H 172 H 135 H Random Glucose Calcium Total Bilirubin AST ALT Alkaline Phosphatase Total Protein Albumin Globulin Albumin/Globulin Ratio 05/09/17 05/09/17 05/09/17 07:07 07:07 13:31 WBC 12.3 H RBC 2.64 L Hgb 8.4 L Hct 26.2 L MCV 99.0 MCH 31.9 H MCHC 32.2 L RDW 20.7 H Plt Count 344 MPV 8.5 Sodium 135 Potassium 5.8 H Chloride 99 Carbon Dioxide 27 Anion Gap 15 BUN 35 H Creatinine 7.5 H* Est GFR ( Amer) 7 Est GFR (Non-Af Amer) 6 POC Glucose (mg/dL) 199 H Random Glucose 116 H Calcium 9.8 Total Bilirubin 0.5 AST 23 ALT 33 Alkaline Phosphatase 113 Total Protein 6.7 Albumin 3.3 L Globulin 3.4 Albumin/Globulin Ratio 1.0 05/09/17 17:22 WBC RBC Hgb Hct MCV MCH MCHC RDW Plt Count MPV Sodium Potassium Chloride Carbon Dioxide Anion Gap BUN Creatinine Est GFR ( Amer) Est GFR (Non-Af Amer) POC Glucose (mg/dL) 254 H Random Glucose Calcium Total Bilirubin AST ALT Alkaline Phosphatase Total Protein Albumin Globulin Albumin/Globulin Ratio Assessment & Plan (1) End-stage renal disease on hemodialysis Status: Acute (2) Gangrene associated with type 2 diabetes mellitus Status: Acute (3) S/P BKA (below knee amputation) unilateral Status: Acute (4) Type 2 diabetes mellitus with diabetic nephropathy Status: Acute - Assessment and Plan (Free Text) Assessment: wound drainage + VRE hx of esbl in past Surg on board cont empiric rx left foot dry - may eventually need BKA podiatry on board
[2017-05-09] MEDS: Ciprofloxacin 200mg/100ml D5W 100 ML IVPB SCH (20:53)
[2017-05-09] MEDS: (Lantus) Insulin Glargine, Recombinant SC SCH (22:12)
[2017-05-09] MEDS: Linezolid 600 mg in D5W 300 ml 600 MG/300 ML BAG IVPB SCH (22:36)
[2017-05-10] MEDS: Acyclovir 5% Oint (15 gm) EXT SCH ×8 (00:12→23:15)
[2017-05-10] MEDS: Oxycodone/Acetaminophen 5/325 mg Tab PO PRN (00:38)
[2017-05-10] MEDS: HYDROmorphone 0.5 mg/0.5 ml ISec IM PRN ×3 (02:07→14:26)
[2017-05-10] MEDS: HYDROmorphone 0.5 mg/0.5 ml ISec IVP PRN ×2 (02:26→17:33)
[2017-05-10] MEDS: Ciprofloxacin 200mg/100ml D5W 100 ML IVPB SCH ×2 (06:00→18:38)
[2017-05-10] MEDS: Multivitamin Vitamin B Complex (Nephro-Vite) Tab PO SCH (08:49)
[2017-05-10] MEDS: (Novolin R) Insulin Human Regular 100 units/ml vial SC SCH ×4 (08:50→23:15)
[2017-05-10] MEDS: Saccharomyces Boulardi 250 mg Cap PO SCH ×3 (11:57→17:33)
[2017-05-10] MEDS: Linezolid 600 mg in D5W 300 ml 600 MG/300 ML BAG IVPB SCH ×2 (12:02→21:25)
--- NOTE | 2017-05-10 14:45 | CP.PCM.PN ---
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 Objective - Vital Signs/Intake and Output Vital Signs (last 24 hours): Temp Pulse Resp BP Pulse Ox 98.1 F 94 H 20 126/64 97 05/10/17 08:18 05/10/17 08:18 05/10/17 08:18 05/10/17 08:18 05/10/17 08:18 Intake and Output: 05/10/17 05/10/17 06:59 18:59 Intake Total 600 Output Total 600 Balance 0 - Medications Medications: Current Medications Acetaminophen (Tylenol 325mg Tab) 650 mg PO Q8H [facility] Last Admin: 05/10/17 07:45 Dose: Not Given Acyclovir (Zovirax 5% Oint) 1 gm EXT Q3H [facility] Last Admin: 05/10/17 12:02 Dose: 1 applic Aspirin (Ecotrin) 81 mg PO DAILY [facility] Last Admin: 05/10/17 11:57 Dose: 81 mg Calcium Acetate (Phoslo) 2,668 mg PO TIDCC [facility] Last Admin: 05/10/17 12:01 Dose: 2,668 mg Clopidogrel Bisulfate (Plavix) 75 mg PO DAILY [facility] Last Admin: 05/10/17 11:58 Dose: 75 mg Diphenhydramine HCl (Benadryl) 25 mg IVP Q5H PRN PRN Reason: Itching / Pruritus Last Admin: 05/08/17 13:36 Dose: 25 mg Diphenhydramine HCl (Benadryl) 25 mg PO Q5H PRN PRN Reason: Itching / Pruritus Last Admin: 05/09/17 14:48 Dose: 25 mg Epoetin Alec (Procrit) 10,000 unit IV TTS [facility] Last Admin: 05/09/17 11:14 Dose: 10,000 unit Famotidine (Pepcid) 20 mg PO DAILY [facility] Last Admin: 05/10/17 11:57 Dose: 20 mg Gabapentin (Neurontin) 100 mg PO QPM [facility] Last Admin: 05/09/17 18:17 Dose: 100 mg Heparin Sodium (Porcine) (Heparin) 5,000 units SC Q12 [facility] Last Admin: 05/10/17 11:57 Dose: 5,000 units Hydromorphone HCl (Dilaudid) 0.5 mg IVP Q5H PRN PRN Reason: Pain, moderate (4-7) Last Admin: 05/08/17 13:37 Dose: 0.5 mg Hydromorphone HCl (Dilaudid) 0.5 mg IM Q5H PRN PRN Reason: Pain, severe (8-10) Last Admin: 05/10/17 08:50 Dose: 0.5 mg Ciprofloxacin (Cipro 200mg/100ml D5w) 100 mls @ 67 mls/hr IVPB Q12H [facility] Last Admin: 05/10/17 06:00 Dose: Not Given Linezolid (Zyvox 600mg/300ml D5w) 600 mg in 300 mls @ 200 mls/hr IVPB Q12 [facility] Last Admin: 05/10/17 12:02 Dose: Not Given Insulin Glargine (Lantus) 10 unit SC HS [facility] Last Admin: 05/09/17 22:12 Dose: 10 units Insulin Human Regular (Novolin R) 0 unit SC ACHS [facility] PRN Reason: Protocol Last Admin: 05/10/17 12:19 Dose: Not Given Oxycodone/Acetaminophen (Percocet 5/325 Mg Tab) 2 tab PO Q6H PRN PRN Reason: Pain, moderate (4-7) Stop: 05/10/17 22:40 Last Admin: 05/10/17 00:38 Dose: 2 tab Saccharomyces Boulardii (Florastor) 250 mg PO TID [facility] Last Admin: 05/10/17 14:25 Dose: 250 mg Vitamin B Complex/Vit C/Folic Acid (Nephro-Cony) 1 tab PO 0800 [facility] Last Admin: 05/10/17 08:49 Dose: 1 tab - Labs Labs: 05/09/17 07:07 05/09/17 07:07 - Constitutional Appears: No Acute Distress, Chronically Ill - Head Exam Head Exam: ATRAUMATIC, NORMAL INSPECTION - Eye Exam Eye Exam: EOMI, Normal appearance - Neck Exam Neck Exam: Normal Inspection. absent: Tenderness - Respiratory Exam Respiratory Exam: Clear to Ausculation Bilateral, NORMAL BREATHING PATTERN - Cardiovascular Exam Cardiovascular Exam: REGULAR RHYTHM, +S1 - GI/Abdominal Exam GI & Abdominal Exam: Soft. absent: Tenderness - Extremities Exam Extremities Exam: Tenderness. absent: Normal Inspection - Neurological Exam Neurological Exam: Awake, CN II-XII Intact - Skin Skin Exam: Dry, Warm Assessment and Plan (1) Type 2 diabetes mellitus with diabetic nephropathy Status: Acute (2) S/P BKA (below knee amputation) unilateral Status: Acute (3) End-stage renal disease on hemodialysis Status: Acute (4) Fluid overload Status: Acute (5) Type 2 diabetes mellitus with diabetic nephropathy Status: Acute (6) Gangrene associated with type 2 diabetes mellitus Status: Acute - Assessment and Plan (Free Text) Plan: IV ABs for VRE in wound Decrease UF next dialysis - MWF might need another BKA
--- NOTE | 2017-05-10 15:54 | RAD ---
PROCEDURE: CHEST RADIOGRAPH, 1 VIEW HISTORY: verify left PICC COMPARISON: 03/31/2017 FINDINGS: LUNGS: Clear. PLEURA: No pneumothorax or pleural fluid seen. CARDIOVASCULAR: Normal heart size. Tunneled right central venous dialysis catheter. Left PICC catheter, the distal extent of which cannot be definitely determined because of the central venous dialysis catheter. Likely in the SVC. OSSEOUS STRUCTURES: No significant abnormalities. VISUALIZED UPPER ABDOMEN: Normal. OTHER FINDINGS: None. IMPRESSION: New left PICC catheter the distal extent of which cannot be definitely determined on the basis of this examination but most likely in the SVC.
[2017-05-10] MEDS: DiphenhydrAMINE 50 mg/ml Inj IVP PRN (17:39)
--- NOTE | 2017-05-10 19:03 | CP.PCM.PN ---
Subjective - Date & Time of Evaluation Date of Evaluation: 05/10/17 Time of Evaluation: 08:00 - Subjective Subjective: On rx for VRE abdominal wound infection Dry gangrene same left foot Objective - Vital Signs/Intake and Output Vital Signs (last 24 hours): Temp Pulse Resp BP Pulse Ox 98.1 F 94 H 20 126/64 97 05/10/17 08:18 05/10/17 08:18 05/10/17 08:18 05/10/17 08:18 05/10/17 08:18 Intake and Output: 05/10/17 05/11/17 18:59 06:59 Intake Total 820 Output Total 5 Balance 815 - Medications Medications: Current Medications Acetaminophen (Tylenol 325mg Tab) 650 mg PO Q8H [facility] Last Admin: 05/10/17 18:37 Dose: Not Given Acyclovir (Zovirax 5% Oint) 1 gm EXT Q3H [facility] Last Admin: 05/10/17 18:37 Dose: Not Given Aspirin (Ecotrin) 81 mg PO DAILY [facility] Last Admin: 05/10/17 11:57 Dose: 81 mg Calcium Acetate (Phoslo) 2,668 mg PO TIDCC [facility] Last Admin: 05/10/17 17:33 Dose: 2,668 mg Clopidogrel Bisulfate (Plavix) 75 mg PO DAILY [facility] Last Admin: 05/10/17 11:58 Dose: 75 mg Diphenhydramine HCl (Benadryl) 25 mg IVP Q5H PRN PRN Reason: Itching / Pruritus Last Admin: 05/10/17 17:39 Dose: 25 mg Diphenhydramine HCl (Benadryl) 25 mg PO Q5H PRN PRN Reason: Itching / Pruritus Last Admin: 05/09/17 14:48 Dose: 25 mg Epoetin Alec (Procrit) 10,000 unit IV TTS [facility] Last Admin: 05/09/17 11:14 Dose: 10,000 unit Famotidine (Pepcid) 20 mg PO DAILY [facility] Last Admin: 05/10/17 11:57 Dose: 20 mg Gabapentin (Neurontin) 100 mg PO QPM [facility] Last Admin: 05/10/17 17:33 Dose: 100 mg Hydromorphone HCl (Dilaudid) 0.5 mg IVP Q5H PRN PRN Reason: Pain, moderate (4-7) Last Admin: 05/10/17 17:33 Dose: 0.5 mg Hydromorphone HCl (Dilaudid) 0.5 mg IM Q5H PRN PRN Reason: Pain, severe (8-10) Last Admin: 05/10/17 08:50 Dose: 0.5 mg Ciprofloxacin (Cipro 200mg/100ml D5w) 100 mls @ 67 mls/hr IVPB Q12H [facility] Last Admin: 05/10/17 18:38 Dose: 67 mls/hr Linezolid (Zyvox 600mg/300ml D5w) 600 mg in 300 mls @ 200 mls/hr IVPB Q12 [facility] Last Admin: 05/10/17 12:02 Dose: Not Given Insulin Glargine (Lantus) 10 unit SC HS [facility] Last Admin: 05/09/17 22:12 Dose: 10 units Insulin Human Regular (Novolin R) 0 unit SC ACHS [facility] PRN Reason: Protocol Last Admin: 05/10/17 17:39 Dose: 2 unit Oxycodone/Acetaminophen (Percocet 5/325 Mg Tab) 2 tab PO Q6H PRN PRN Reason: Pain, moderate (4-7) Stop: 05/10/17 22:40 Last Admin: 05/10/17 00:38 Dose: 2 tab Saccharomyces Boulardii (Florastor) 250 mg PO TID [facility] Last Admin: 05/10/17 17:33 Dose: 250 mg Vitamin B Complex/Vit C/Folic Acid (Nephro-Cony) 1 tab PO 0800 [facility] Last Admin: 05/10/17 08:49 Dose: 1 tab - Labs Labs: 05/09/17 07:07 05/09/17 07:07 - Constitutional Appears: Non-toxic, Chronically Ill - Head Exam Head Exam: NORMOCEPHALIC - Eye Exam Eye Exam: PERRL - ENT Exam ENT Exam: Mucous Membranes Dry - Neck Exam Neck Exam: absent: Lymphadenopathy - Respiratory Exam Respiratory Exam: Decreased Breath Sounds - Cardiovascular Exam Cardiovascular Exam: REGULAR RHYTHM Assessment and Plan (1) End-stage renal disease on hemodialysis Status: Acute (2) Gangrene associated with type 2 diabetes mellitus Status: Acute (3) S/P BKA (below knee amputation) unilateral Status: Acute (4) Type 2 diabetes mellitus with diabetic nephropathy Status: Acute
--- NOTE | 2017-05-10 19:57 | CP.PCM.PN ---
Subjective - Date & Time of Evaluation Date of Evaluation: 05/10/17 Time of Evaluation: 19:57 Objective - Vital Signs/Intake and Output Vital Signs (last 24 hours): Temp Pulse Resp BP Pulse Ox 98.1 F 94 H 20 126/64 97 05/10/17 08:18 05/10/17 08:18 05/10/17 08:18 05/10/17 08:18 05/10/17 08:18 Intake and Output: 05/10/17 05/11/17 18:59 06:59 Intake Total 820 Output Total 5 Balance 815 - Medications Medications: Current Medications Acetaminophen (Tylenol 325mg Tab) 650 mg PO Q8H [facility] Last Admin: 05/10/17 18:37 Dose: Not Given Acyclovir (Zovirax 5% Oint) 1 gm EXT Q3H [facility] Last Admin: 05/10/17 18:37 Dose: Not Given Aspirin (Ecotrin) 81 mg PO DAILY [facility] Last Admin: 05/10/17 11:57 Dose: 81 mg Calcium Acetate (Phoslo) 2,668 mg PO TIDCC [facility] Last Admin: 05/10/17 17:33 Dose: 2,668 mg Clopidogrel Bisulfate (Plavix) 75 mg PO DAILY [facility] Last Admin: 05/10/17 11:58 Dose: 75 mg Diphenhydramine HCl (Benadryl) 25 mg IVP Q5H PRN PRN Reason: Itching / Pruritus Last Admin: 05/10/17 17:39 Dose: 25 mg Diphenhydramine HCl (Benadryl) 25 mg PO Q5H PRN PRN Reason: Itching / Pruritus Last Admin: 05/09/17 14:48 Dose: 25 mg Epoetin Alec (Procrit) 10,000 unit IV TTS [facility] Last Admin: 05/09/17 11:14 Dose: 10,000 unit Famotidine (Pepcid) 20 mg PO DAILY [facility] Last Admin: 05/10/17 11:57 Dose: 20 mg Gabapentin (Neurontin) 100 mg PO QPM [facility] Last Admin: 05/10/17 17:33 Dose: 100 mg Hydromorphone HCl (Dilaudid) 0.5 mg IVP Q5H PRN PRN Reason: Pain, moderate (4-7) Last Admin: 05/10/17 17:33 Dose: 0.5 mg Hydromorphone HCl (Dilaudid) 0.5 mg IM Q5H PRN PRN Reason: Pain, severe (8-10) Last Admin: 05/10/17 08:50 Dose: 0.5 mg Ciprofloxacin (Cipro 200mg/100ml D5w) 100 mls @ 67 mls/hr IVPB Q12H [facility] Last Admin: 05/10/17 18:38 Dose: 67 mls/hr Linezolid (Zyvox 600mg/300ml D5w) 600 mg in 300 mls @ 200 mls/hr IVPB Q12 [facility] Last Admin: 05/10/17 12:02 Dose: Not Given Insulin Glargine (Lantus) 10 unit SC HS [facility] Last Admin: 05/09/17 22:12 Dose: 10 units Insulin Human Regular (Novolin R) 0 unit SC ACHS [facility] PRN Reason: Protocol Last Admin: 05/10/17 17:39 Dose: 2 unit Oxycodone/Acetaminophen (Percocet 5/325 Mg Tab) 2 tab PO Q6H PRN PRN Reason: Pain, moderate (4-7) Stop: 05/10/17 22:40 Last Admin: 05/10/17 00:38 Dose: 2 tab Saccharomyces Boulardii (Florastor) 250 mg PO TID [facility] Last Admin: 05/10/17 17:33 Dose: 250 mg Vitamin B Complex/Vit C/Folic Acid (Nephro-Cony) 1 tab PO 0800 [facility] Last Admin: 05/10/17 08:49 Dose: 1 tab - Labs Labs: 05/09/17 07:07 05/09/17 07:07
[2017-05-10] MEDS: (Lantus) Insulin Glargine, Recombinant SC SCH (22:20)
[2017-05-11] MEDS: HYDROmorphone 0.5 mg/0.5 ml ISec IVP PRN ×4 (00:01→21:11)
[2017-05-11] MEDS: Acyclovir 5% Oint (15 gm) EXT SCH ×7 (04:29→23:51)
[2017-05-11] MEDS: DiphenhydrAMINE 50 mg/ml Inj IVP PRN ×5 (04:52→21:12)
[2017-05-11] MEDS: Ciprofloxacin 200mg/100ml D5W 100 ML IVPB SCH ×2 (06:34→18:56)
[2017-05-11] MEDS: (Novolin R) Insulin Human Regular 100 units/ml vial SC SCH ×4 (08:12→22:00)
[2017-05-11] MEDS: Multivitamin Vitamin B Complex (Nephro-Vite) Tab PO SCH (08:26)
--- NOTE | 2017-05-11 09:30 | CP.PCM.PN ---
Subjective - Date & Time of Evaluation Date of Evaluation: 05/11/17 Time of Evaluation: 08:40 - Subjective Subjective: no acute events HD today awake, on phone with family trying to eat breakfast chronic pain, mostly in left foot anuric no rash no pruritis no headache no chest pain no palpitations no abdominal pain, ostomy no fever or chills appetite good Objective - Vital Signs/Intake and Output Vital Signs (last 24 hours): Temp Pulse Resp BP Pulse Ox 98 F 96 H 20 190/102 H 97 05/11/17 08:12 05/11/17 08:12 05/11/17 08:12 05/11/17 08:12 05/11/17 08:12 Intake and Output: 05/11/17 05/11/17 06:59 18:59 Intake Total 800 Output Total 400 Balance 400 - Medications Medications: Current Medications Acetaminophen (Tylenol 325mg Tab) 650 mg PO Q8H [facility] Last Admin: 05/11/17 08:26 Dose: 650 mg Acyclovir (Zovirax 5% Oint) 1 gm EXT Q3H [facility] Last Admin: 05/11/17 08:47 Dose: Not Given Aspirin (Ecotrin) 81 mg PO DAILY [facility] Last Admin: 05/10/17 11:57 Dose: 81 mg Calcium Acetate (Phoslo) 2,668 mg PO TIDCC [facility] Last Admin: 05/11/17 08:26 Dose: 2,668 mg Clopidogrel Bisulfate (Plavix) 75 mg PO DAILY [facility] Last Admin: 05/10/17 11:58 Dose: 75 mg Diphenhydramine HCl (Benadryl) 25 mg IVP Q5H PRN PRN Reason: Itching / Pruritus Last Admin: 05/11/17 04:52 Dose: 25 mg Diphenhydramine HCl (Benadryl) 25 mg PO Q5H PRN PRN Reason: Itching / Pruritus Last Admin: 05/09/17 14:48 Dose: 25 mg Epoetin Alec (Procrit) 10,000 unit IV TTS [facility] Last Admin: 05/09/17 11:14 Dose: 10,000 unit Famotidine (Pepcid) 20 mg PO DAILY [facility] Last Admin: 05/10/17 11:57 Dose: 20 mg Gabapentin (Neurontin) 100 mg PO QPM [facility] Last Admin: 05/10/17 17:33 Dose: 100 mg Hydromorphone HCl (Dilaudid) 0.5 mg IVP Q5H PRN PRN Reason: Pain, moderate (4-7) Last Admin: 05/11/17 04:51 Dose: 0.5 mg Hydromorphone HCl (Dilaudid) 0.5 mg IM Q5H PRN PRN Reason: Pain, severe (8-10) Last Admin: 05/10/17 08:50 Dose: 0.5 mg Ciprofloxacin (Cipro 200mg/100ml D5w) 100 mls @ 67 mls/hr IVPB Q12H [facility] Last Admin: 05/11/17 06:34 Dose: 67 mls/hr Linezolid (Zyvox 600mg/300ml D5w) 600 mg in 300 mls @ 200 mls/hr IVPB Q12 [facility] Last Admin: 05/10/17 21:25 Dose: 200 mls/hr Insulin Glargine (Lantus) 10 unit SC HS [facility] Last Admin: 05/11/17 00:00 Dose: 10 units Insulin Human Regular (Novolin R) 0 unit SC ACHS [facility] PRN Reason: Protocol Last Admin: 05/11/17 08:12 Dose: Not Given Saccharomyces Boulardii (Florastor) 250 mg PO TID [facility] Last Admin: 05/10/17 17:33 Dose: 250 mg Vitamin B Complex/Vit C/Folic Acid (Nephro-Cony) 1 tab PO 0800 [facility] Last Admin: 05/11/17 08:26 Dose: 1 tab - Labs Labs: 05/09/17 07:07 05/09/17 07:07 - Constitutional Appears: Non-toxic, Chronically Ill - Head Exam Head Exam: ATRAUMATIC - Eye Exam Eye Exam: EOMI, Normal appearance - ENT Exam ENT Exam: Mucous Membranes Moist - Neck Exam Neck Exam: Full ROM. absent: Lymphadenopathy - Respiratory Exam Respiratory Exam: Decreased Breath Sounds. absent: Accessory Muscle Use - Cardiovascular Exam Cardiovascular Exam: REGULAR RHYTHM. absent: Rubs - GI/Abdominal Exam GI & Abdominal Exam: Distended, Soft Additional comments: ostomy - Extremities Exam Additional comments: right bka left foot with ischemic changes - Neurological Exam Neurological Exam: Alert, Oriented x3 Assessment and Plan - Assessment and Plan (Free Text) Assessment: esrd, HD today PVD, s/p right bka, left foot ischemic colostomy chronic pain failure to thrive continue wound care and aggressive nutrition
[2017-05-11] MEDS: Saccharomyces Boulardi 250 mg Cap PO SCH ×3 (11:00→18:57)
[2017-05-11] MEDS: Linezolid 600 mg in D5W 300 ml 600 MG/300 ML BAG IVPB SCH ×2 (11:01→21:10)
[2017-05-11] MEDS: HYDROmorphone 0.5 mg/0.5 ml ISec IM PRN (11:04)
[2017-05-11] MEDS: Epoetin Alfa 10,000 unit/ml Dialysis IV SCH (11:07)
[2017-05-11 12:04] LABS: BASO # 0.1 K/uL (0.0-0.2); BASO % 0.9 % (0.0-2.0); EOS # 0.3 K/uL (0.0-0.7); EOS % 2.5 % (0.0-4.0); HEMATOCRIT 25.4 % (34.0-47.0); LYMPH # 2.2 K/uL (1.0-4.3); LYMPH % 18.7 % (20.0-40.0); MEAN CELL VOLUME 98.3 fL (81.0-99.0); MEAN CORPUSCULAR HEMOGLOBIN 32.3 pg (27.0-31.0); MEAN CORPUSCULAR HGB CONC 32.8 g/dL (33.0-37.0); MEAN PLATELET VOLUME 9.4 fL (7.2-11.7); MONO # 0.9 K/uL (0.0-0.8); MONO % 7.5 % (0.0-10.0); NRBC % 0.2 % (0.0-2.0); RED CELL DISTRIBUTION WIDTH 20.4 % (11.5-14.5); WHITE BLOOD COUNT 11.8 K/uL (4.8-10.8)
[2017-05-11 13:04] LABS: BILIRUBIN,TOTAL 0.5 mg/dL (0.2-1.3); CALCIUM 10.3 mg/dl (8.6-10.4); POTASSIUM 5.7 mmol/L (3.6-5.2); TOTAL PROTEIN 6.8 g/dL (6.3-8.3)
[2017-05-11] MEDS: (Lantus) Insulin Glargine, Recombinant SC SCH ×2 (21:12)
[2017-05-12] MEDS: DiphenhydrAMINE 50 mg/ml Inj IVP PRN ×5 (01:58→22:21)
[2017-05-12] MEDS: HYDROmorphone 0.5 mg/0.5 ml ISec IVP PRN ×5 (01:58→22:22)
[2017-05-12] MEDS: Acyclovir 5% Oint (15 gm) EXT SCH ×7 (02:46→22:23)
[2017-05-12] MEDS: Ciprofloxacin 200mg/100ml D5W 100 ML IVPB SCH ×2 (06:57→18:01)
[2017-05-12] MEDS: (Novolin R) Insulin Human Regular 100 units/ml vial SC SCH ×4 (08:00→22:23)
[2017-05-12] MEDS: Multivitamin Vitamin B Complex (Nephro-Vite) Tab PO SCH (08:05)
[2017-05-12] MEDS: Saccharomyces Boulardi 250 mg Cap PO SCH ×3 (10:27→18:15)
[2017-05-12] MEDS: Linezolid 600 mg in D5W 300 ml 600 MG/300 ML BAG IVPB SCH ×2 (10:37→22:22)
--- NOTE | 2017-05-12 14:34 | CP.PCM.PN ---
Subjective - Date & Time of Evaluation Date of Evaluation: 05/12/17 Time of Evaluation: 11:55 - Subjective Subjective: 51 y/o female seen at bedside this morning regarding left foot gangrene. Pt says she is still having the same "horrible" pain in the foot, but the pain medications are helping. Pt denies any acute events overnight. Pt denies F/C/N/V /CP/SOB Objective - Vital Signs/Intake and Output Vital Signs (last 24 hours): Temp Pulse Resp BP Pulse Ox 97.6 F 96 H 20 160/74 H 97 05/12/17 08:40 05/12/17 08:40 05/12/17 08:40 05/12/17 08:40 05/12/17 08:40 - Medications Medications: Current Medications Acetaminophen (Tylenol 325mg Tab) 650 mg PO Q8H [facility] Last Admin: 05/12/17 08:44 Dose: Not Given Acyclovir (Zovirax 5% Oint) 1 gm EXT Q3H [facility] Last Admin: 05/12/17 13:47 Dose: Not Given Aspirin (Ecotrin) 81 mg PO DAILY [facility] Last Admin: 05/12/17 10:28 Dose: 81 mg Calcium Acetate (Phoslo) 2,668 mg PO TIDCC [facility] Last Admin: 05/12/17 12:45 Dose: 2,668 mg Clopidogrel Bisulfate (Plavix) 75 mg PO DAILY [facility] Last Admin: 05/12/17 10:28 Dose: 75 mg Diphenhydramine HCl (Benadryl) 25 mg IVP Q5H PRN PRN Reason: Itching / Pruritus Last Admin: 05/12/17 12:45 Dose: 25 mg Diphenhydramine HCl (Benadryl) 25 mg PO Q5H PRN PRN Reason: Itching / Pruritus Last Admin: 05/09/17 14:48 Dose: 25 mg Epoetin Alec (Procrit) 10,000 unit IV TTS [facility] Last Admin: 05/11/17 11:07 Dose: 10,000 unit Famotidine (Pepcid) 20 mg PO DAILY [facility] Last Admin: 05/12/17 10:28 Dose: 20 mg Gabapentin (Neurontin) 100 mg PO QPM [facility] Last Admin: 05/11/17 18:57 Dose: 100 mg Hydromorphone HCl (Dilaudid) 0.5 mg IVP Q5H PRN PRN Reason: Pain, moderate (4-7) Last Admin: 05/12/17 12:46 Dose: 0.5 mg Hydromorphone HCl (Dilaudid) 0.5 mg IM Q5H PRN PRN Reason: Pain, severe (8-10) Last Admin: 05/11/17 11:04 Dose: 0.5 mg Ciprofloxacin (Cipro 200mg/100ml D5w) 100 mls @ 67 mls/hr IVPB Q12H [facility] Last Admin: 05/12/17 06:57 Dose: 67 mls/hr Linezolid (Zyvox 600mg/300ml D5w) 600 mg in 300 mls @ 200 mls/hr IVPB Q12 [facility] Last Admin: 05/12/17 10:37 Dose: 200 mls/hr Insulin Glargine (Lantus) 10 unit SC HS [facility] Last Admin: 05/11/17 21:12 Dose: 10 units Insulin Human Regular (Novolin R) 0 unit SC ACHS [facility] PRN Reason: Protocol Last Admin: 05/12/17 12:30 Dose: 3 unit Saccharomyces Boulardii (Florastor) 250 mg PO TID [facility] Last Admin: 05/12/17 13:07 Dose: 250 mg Vitamin B Complex/Vit C/Folic Acid (Nephro-Cony) 1 tab PO 0800 [facility] Last Admin: 05/12/17 08:05 Dose: 1 tab - Labs Labs: 05/11/17 11:48 05/11/17 11:48 - Constitutional Appears: Well, Non-toxic, No Acute Distress - Extremities Exam Additional comments: Right lower leg below knee amputation noted. Left lower extremity focused examination: VASC: DP and PT pulses non-palpable. Temperature runs cool to cold proximal to distal. NEURO: Protective sensation grossly diminished DERM: Dry necrotic heel eschar noted measuring 5x4.2 cm, absent fluctuance, and shaniqua-wound erythema. Complete digital dry necrosis present to great toe and 3rd digit. Atrophic presentation to left 2nd and 4th digits. MUSK: Tenderness to deep palpation along entire foot below level of knee. No gross deformities noted. - Neurological Exam Neurological Exam: Alert, Awake, Oriented x3 - Psychiatric Exam Psychiatric exam: Normal Affect, Normal Mood Assessment and Plan - Assessment and Plan (Free Text) Assessment: 51 year old female with left foot diffuse pedal gangrene, secondary to ischemia Plan: Pt was evaluated and treated Discussed plan with attending Dr. Oakley Ischemia and dry gangrene changes progressive to left foot Continue managing lower extremity pain with analgesics Await further recommendations from Dr. Clark Podiatry will continue to follow while in house
--- NOTE | 2017-05-12 15:03 | CP.PCM.PN ---
Subjective - Date & Time of Evaluation Date of Evaluation: 05/12/17 Time of Evaluation: 09:00 - Subjective Subjective: no fever wound care in progress Objective - Vital Signs/Intake and Output Vital Signs (last 24 hours): Temp Pulse Resp BP Pulse Ox 97.6 F 96 H 20 160/74 H 97 05/12/17 08:40 05/12/17 08:40 05/12/17 08:40 05/12/17 08:40 05/12/17 08:40 - Medications Medications: Current Medications Acetaminophen (Tylenol 325mg Tab) 650 mg PO Q8H [facility] Last Admin: 05/12/17 08:44 Dose: Not Given Acyclovir (Zovirax 5% Oint) 1 gm EXT Q3H [facility] Last Admin: 05/12/17 13:47 Dose: Not Given Aspirin (Ecotrin) 81 mg PO DAILY [facility] Last Admin: 05/12/17 10:28 Dose: 81 mg Calcium Acetate (Phoslo) 2,668 mg PO TIDCC [facility] Last Admin: 05/12/17 12:45 Dose: 2,668 mg Clopidogrel Bisulfate (Plavix) 75 mg PO DAILY [facility] Last Admin: 05/12/17 10:28 Dose: 75 mg Diphenhydramine HCl (Benadryl) 25 mg IVP Q5H PRN PRN Reason: Itching / Pruritus Last Admin: 05/12/17 12:45 Dose: 25 mg Diphenhydramine HCl (Benadryl) 25 mg PO Q5H PRN PRN Reason: Itching / Pruritus Last Admin: 05/09/17 14:48 Dose: 25 mg Epoetin Alec (Procrit) 10,000 unit IV TTS [facility] Last Admin: 05/11/17 11:07 Dose: 10,000 unit Famotidine (Pepcid) 20 mg PO DAILY [facility] Last Admin: 05/12/17 10:28 Dose: 20 mg Gabapentin (Neurontin) 100 mg PO QPM [facility] Last Admin: 05/11/17 18:57 Dose: 100 mg Hydromorphone HCl (Dilaudid) 0.5 mg IVP Q5H PRN PRN Reason: Pain, moderate (4-7) Last Admin: 05/12/17 12:46 Dose: 0.5 mg Hydromorphone HCl (Dilaudid) 0.5 mg IM Q5H PRN PRN Reason: Pain, severe (8-10) Last Admin: 05/11/17 11:04 Dose: 0.5 mg Ciprofloxacin (Cipro 200mg/100ml D5w) 100 mls @ 67 mls/hr IVPB Q12H [facility] Last Admin: 05/12/17 06:57 Dose: 67 mls/hr Linezolid (Zyvox 600mg/300ml D5w) 600 mg in 300 mls @ 200 mls/hr IVPB Q12 [facility] Last Admin: 05/12/17 10:37 Dose: 200 mls/hr Insulin Glargine (Lantus) 10 unit SC HS [facility] Last Admin: 05/11/17 21:12 Dose: 10 units Insulin Human Regular (Novolin R) 0 unit SC ACHS [facility] PRN Reason: Protocol Last Admin: 05/12/17 12:30 Dose: 3 unit Saccharomyces Boulardii (Florastor) 250 mg PO TID [facility] Last Admin: 05/12/17 13:07 Dose: 250 mg Vitamin B Complex/Vit C/Folic Acid (Nephro-Cony) 1 tab PO 0800 [facility] Last Admin: 05/12/17 08:05 Dose: 1 tab - Labs Labs: 05/11/17 11:48 05/11/17 11:48 - Constitutional Appears: Non-toxic, Chronically Ill - Head Exam Head Exam: NORMOCEPHALIC - Eye Exam Eye Exam: PERRL - ENT Exam ENT Exam: Mucous Membranes Dry - Neck Exam Neck Exam: absent: Lymphadenopathy - Respiratory Exam Respiratory Exam: Decreased Breath Sounds - Cardiovascular Exam Cardiovascular Exam: REGULAR RHYTHM - GI/Abdominal Exam GI & Abdominal Exam: Distended, Soft - Rectal Exam Rectal Exam: Deferred Assessment and Plan (1) End-stage renal disease on hemodialysis Status: Acute (2) Gangrene associated with type 2 diabetes mellitus Status: Acute (3) S/P BKA (below knee amputation) unilateral Status: Acute (4) Type 2 diabetes mellitus with diabetic nephropathy Status: Acute
[2017-05-12] MEDS: (Lantus) Insulin Glargine, Recombinant SC SCH (22:22)
[2017-05-13] MEDS: Acyclovir 5% Oint (15 gm) EXT SCH ×7 (00:06→21:30)
[2017-05-13] MEDS: Ciprofloxacin 200mg/100ml D5W 100 ML IVPB SCH ×2 (06:06→18:48)
[2017-05-13] MEDS: DiphenhydrAMINE 50 mg/ml Inj IVP PRN ×4 (06:10→21:46)
[2017-05-13] MEDS: HYDROmorphone 0.5 mg/0.5 ml ISec IVP PRN ×4 (06:11→21:45)
[2017-05-13] MEDS: Multivitamin Vitamin B Complex (Nephro-Vite) Tab PO SCH (08:03)
[2017-05-13] MEDS: (Novolin R) Insulin Human Regular 100 units/ml vial SC SCH ×4 (08:04→21:30)
[2017-05-13] MEDS: Oxycodone/Acetaminophen 5/325 mg Tab PO PRN (08:11)
[2017-05-13] MEDS: Saccharomyces Boulardi 250 mg Cap PO SCH ×3 (09:41→18:48)
[2017-05-13] MEDS: Linezolid 600 mg in D5W 300 ml 600 MG/300 ML BAG IVPB SCH ×2 (09:41→21:44)
--- NOTE | 2017-05-13 11:33 | CP.PCM.PN ---
Subjective - Date & Time of Evaluation Date of Evaluation: 05/13/17 Time of Evaluation: 11:30 - Subjective Subjective: Alert; still with severe pain left foot- has dry gangrene monitoring need for amputation Abdominal wound with infection- on IV ABs; site clean Hg still low- on EPO; can recheck iron stores BP elevated- meds resumed last dialysis stable on 05/11 no other complaints Objective - Vital Signs/Intake and Output Vital Signs (last 24 hours): Temp Pulse Resp BP Pulse Ox 98.0 F 97 H 20 195/98 H 100 05/13/17 08:26 05/13/17 08:26 05/13/17 08:26 05/13/17 11:16 05/13/17 08:26 - Medications Medications: Current Medications Acetaminophen (Tylenol 325mg Tab) 650 mg PO Q8H [facility] Last Admin: 05/13/17 08:03 Dose: Not Given Acyclovir (Zovirax 5% Oint) 1 gm EXT Q3H [facility] Last Admin: 05/13/17 09:42 Dose: 1 applic Amlodipine Besylate (Norvasc) 2.5 mg PO DAILY [facility] Last Admin: 05/13/17 09:41 Dose: 2.5 mg Aspirin (Ecotrin) 81 mg PO DAILY [facility] Last Admin: 05/13/17 09:41 Dose: 81 mg Calcium Acetate (Phoslo) 2,668 mg PO TIDCC [facility] Last Admin: 05/13/17 08:03 Dose: 2,668 mg Carvedilol (Coreg) 3.125 mg PO BID [facility] Last Admin: 05/13/17 09:41 Dose: 3.125 mg Clopidogrel Bisulfate (Plavix) 75 mg PO DAILY [facility] Last Admin: 05/13/17 09:41 Dose: 75 mg Diphenhydramine HCl (Benadryl) 25 mg IVP Q5H PRN PRN Reason: Itching / Pruritus Last Admin: 05/13/17 11:14 Dose: 25 mg Diphenhydramine HCl (Benadryl) 25 mg PO Q5H PRN PRN Reason: Itching / Pruritus Last Admin: 05/09/17 14:48 Dose: 25 mg Epoetin Alec (Procrit) 10,000 unit IV TTS [facility] Last Admin: 05/11/17 11:07 Dose: 10,000 unit Famotidine (Pepcid) 20 mg PO DAILY [facility] Last Admin: 05/13/17 09:41 Dose: 20 mg Gabapentin (Neurontin) 100 mg PO QPM [facility] Last Admin: 05/12/17 18:15 Dose: 100 mg Hydromorphone HCl (Dilaudid) 0.5 mg IVP Q5H PRN PRN Reason: Pain, moderate (4-7) Last Admin: 05/13/17 11:15 Dose: 0.5 mg Ciprofloxacin (Cipro 200mg/100ml D5w) 100 mls @ 67 mls/hr IVPB Q12H [facility] Last Admin: 05/13/17 06:06 Dose: 67 mls/hr Linezolid (Zyvox 600mg/300ml D5w) 600 mg in 300 mls @ 200 mls/hr IVPB Q12 [facility] Last Admin: 05/13/17 09:41 Dose: 200 mls/hr Insulin Glargine (Lantus) 10 unit SC HS [facility] Last Admin: 05/12/17 22:22 Dose: 10 units Insulin Human Regular (Novolin R) 0 unit SC ACHS [facility] PRN Reason: Protocol Last Admin: 05/13/17 08:04 Dose: 2 unit Oxycodone/Acetaminophen (Percocet 5/325 Mg Tab) 1 tab PO Q6H PRN PRN Reason: Pain,moderate(4-7),IF NO IV/IM Stop: 05/15/17 17:01 Last Admin: 05/13/17 08:11 Dose: 1 tab Saccharomyces Boulardii (Florastor) 250 mg PO TID [facility] Last Admin: 05/13/17 09:41 Dose: 250 mg Vitamin B Complex/Vit C/Folic Acid (Nephro-Cony) 1 tab PO 0800 [facility] Last Admin: 05/13/17 08:03 Dose: 1 tab - Labs Labs: 05/11/17 11:48 05/11/17 11:48 - Constitutional Appears: No Acute Distress, Chronically Ill - Head Exam Head Exam: ATRAUMATIC, NORMAL INSPECTION - Eye Exam Eye Exam: EOMI, Normal appearance - Neck Exam Neck Exam: Normal Inspection. absent: Tenderness - Respiratory Exam Respiratory Exam: Clear to Ausculation Bilateral, NORMAL BREATHING PATTERN - Cardiovascular Exam Cardiovascular Exam: REGULAR RHYTHM, +S1 - GI/Abdominal Exam GI & Abdominal Exam: Soft. absent: Tenderness - Extremities Exam Extremities Exam: Calf Tenderness, Tenderness - Neurological Exam Neurological Exam: Alert, CN II-XII Intact - Skin Skin Exam: Dry, Warm Assessment and Plan (1) Type 2 diabetes mellitus with diabetic nephropathy Status: Acute (2) S/P BKA (below knee amputation) unilateral Status: Acute (3) End-stage renal disease on hemodialysis Status: Acute (4) Fluid overload Status: Acute (5) Type 2 diabetes mellitus with diabetic nephropathy Status: Acute (6) Gangrene associated with type 2 diabetes mellitus Status: Acute - Assessment and Plan (Free Text) Plan: dialysis TTS IV ABs 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
[2017-05-13] MEDS: (Lantus) Insulin Glargine, Recombinant SC SCH (21:45)
[2017-05-14] MEDS: Acyclovir 5% Oint (15 gm) EXT SCH ×8 (00:15→20:20)
[2017-05-14] MEDS: DiphenhydrAMINE 50 mg/ml Inj IVP PRN ×3 (06:32→19:34)
[2017-05-14] MEDS: HYDROmorphone 0.5 mg/0.5 ml ISec IVP PRN ×3 (06:32→19:34)
[2017-05-14] MEDS: Ciprofloxacin 200mg/100ml D5W 100 ML IVPB SCH ×2 (06:34→20:25)
[2017-05-14 07:32] LABS: BASO # 0.1 K/uL (0.0-0.2); BASO % 0.5 % (0.0-2.0); EOS # 0.4 K/uL (0.0-0.7); EOS % 3.5 % (0.0-4.0); HEMATOCRIT 25.4 % (34.0-47.0); LYMPH # 2.1 K/uL (1.0-4.3); LYMPH % 18.5 % (20.0-40.0); MEAN CORPUSCULAR HEMOGLOBIN 32.3 pg (27.0-31.0); MEAN CORPUSCULAR HGB CONC 32.6 g/dL (33.0-37.0); MONO # 0.7 K/uL (0.0-0.8); MONO % 5.9 % (0.0-10.0); RED CELL DISTRIBUTION WIDTH 21.1 % (11.5-14.5); WHITE BLOOD COUNT 11.5 K/uL (4.8-10.8)
[2017-05-14 08:13] LABS: ALB/GLOB RATIO 0.8 (1.0-2.1); BILIRUBIN,TOTAL 0.4 mg/dL (0.2-1.3); CALCIUM 9.9 mg/dl (8.6-10.4); POTASSIUM 5.7 mmol/L (3.6-5.2); TOTAL PROTEIN 7.4 g/dL (6.3-8.3)
[2017-05-14] MEDS: Saccharomyces Boulardi 250 mg Cap PO SCH ×3 (09:23→18:37)
[2017-05-14] MEDS: Multivitamin Vitamin B Complex (Nephro-Vite) Tab PO SCH (09:23)
[2017-05-14] MEDS: (Novolin R) Insulin Human Regular 100 units/ml vial SC SCH ×4 (09:24→23:00)
[2017-05-14] MEDS: Oxycodone/Acetaminophen 5/325 mg Tab PO PRN ×2 (09:29→23:01)
[2017-05-14] MEDS ORDERED: Epoetin Alfa 10,000 unit/ml Dialysis IV SCH (10:45)
[2017-05-14] MEDS: Epoetin Alfa 10,000 unit/ml Dialysis IV SCH (10:59)
[2017-05-14] MEDS: Linezolid 600 mg in D5W 300 ml 600 MG/300 ML BAG IVPB SCH ×2 (10:59→22:16)
--- NOTE | 2017-05-14 11:12 | CP.PCM.PN ---
Subjective - Date & Time of Evaluation Date of Evaluation: 05/14/17 Time of Evaluation: 11:12 - Subjective Subjective: seen and examined in hd c/o pain in left leg monitoring need for amputation Abdominal wound with infection- on IV ABs Objective - Vital Signs/Intake and Output Vital Signs (last 24 hours): Temp Pulse Resp BP Pulse Ox 98 F 99 H 20 119/65 95 05/14/17 10:00 05/14/17 10:00 05/14/17 10:00 05/14/17 10:45 05/14/17 10:00 Intake and Output: 05/14/17 05/14/17 06:59 18:59 Intake Total 500 150 Output Total 350 0 Balance 150 150 - Medications Medications: Current Medications Acetaminophen (Tylenol 325mg Tab) 650 mg PO Q8H [facility] Last Admin: 05/14/17 08:40 Dose: Not Given Acyclovir (Zovirax 5% Oint) 1 gm EXT Q3H [facility] Last Admin: 05/14/17 10:59 Dose: Not Given Amlodipine Besylate (Norvasc) 2.5 mg PO DAILY [facility] Last Admin: 05/14/17 10:57 Dose: Not Given Aspirin (Ecotrin) 81 mg PO DAILY [facility] Last Admin: 05/14/17 10:57 Dose: Not Given Calcium Acetate (Phoslo) 2,668 mg PO TIDCC [facility] Last Admin: 05/14/17 09:23 Dose: 2,668 mg Carvedilol (Coreg) 3.125 mg PO BID [facility] Last Admin: 05/14/17 09:23 Dose: 3.125 mg Clopidogrel Bisulfate (Plavix) 75 mg PO DAILY [facility] Last Admin: 05/14/17 09:23 Dose: 75 mg Diphenhydramine HCl (Benadryl) 25 mg IVP Q5H PRN PRN Reason: Itching / Pruritus Last Admin: 05/14/17 06:32 Dose: 25 mg Diphenhydramine HCl (Benadryl) 25 mg PO Q5H PRN PRN Reason: Itching / Pruritus Last Admin: 05/09/17 14:48 Dose: 25 mg Epoetin Alec (Procrit) 10,000 unit IV TTS [facility] Last Admin: 05/14/17 11:01 Dose: 10,000 unit Famotidine (Pepcid) 20 mg PO DAILY [facility] Last Admin: 05/14/17 09:23 Dose: 20 mg Gabapentin (Neurontin) 100 mg PO QPM [facility] Last Admin: 05/13/17 18:48 Dose: 100 mg Hydromorphone HCl (Dilaudid) 0.5 mg IVP Q5H PRN PRN Reason: Pain, moderate (4-7) Last Admin: 05/14/17 06:32 Dose: 0.5 mg Ciprofloxacin (Cipro 200mg/100ml D5w) 100 mls @ 67 mls/hr IVPB Q12H [facility] Last Admin: 05/14/17 06:34 Dose: 67 mls/hr Linezolid (Zyvox 600mg/300ml D5w) 600 mg in 300 mls @ 200 mls/hr IVPB Q12 [facility] Last Admin: 05/14/17 10:59 Dose: Not Given Insulin Glargine (Lantus) 10 unit SC HS [facility] Last Admin: 05/13/17 21:45 Dose: 10 units Insulin Human Regular (Novolin R) 0 unit SC ACHS [facility] PRN Reason: Protocol Last Admin: 05/14/17 09:24 Dose: 1 unit Oxycodone/Acetaminophen (Percocet 5/325 Mg Tab) 1 tab PO Q6H PRN PRN Reason: Pain,moderate(4-7),IF NO IV/IM Stop: 05/15/17 17:01 Last Admin: 05/14/17 09:29 Dose: 1 tab Saccharomyces Boulardii (Florastor) 250 mg PO TID [facility] Last Admin: 05/14/17 09:23 Dose: 250 mg Vitamin B Complex/Vit C/Folic Acid (Nephro-Cony) 1 tab PO 0800 [facility] Last Admin: 05/14/17 09:23 Dose: 1 tab - Labs Labs: 05/14/17 07:17 05/14/17 07:17 - Constitutional Appears: Non-toxic, No Acute Distress, Chronically Ill - Head Exam Head Exam: NORMAL INSPECTION - Eye Exam Eye Exam: Normal appearance - ENT Exam ENT Exam: Mucous Membranes Moist, Normal Exam - Neck Exam Neck Exam: Full ROM, Normal Inspection - Respiratory Exam Respiratory Exam: Clear to Ausculation Bilateral, NORMAL BREATHING PATTERN - Cardiovascular Exam Cardiovascular Exam: REGULAR RHYTHM - GI/Abdominal Exam GI & Abdominal Exam: Distended, Soft - Extremities Exam Additional comments: rt foot amputee lt twister tender paper, in boots. pt doesnt allow exam Assessment and Plan (1) End-stage renal disease on hemodialysis Status: Acute (2) Gangrene associated with type 2 diabetes mellitus Status: Acute (3) S/P BKA (below knee amputation) unilateral Status: Acute (4) Type 2 diabetes mellitus with diabetic nephropathy Status: Acute (5) Anemia Status: Acute - Assessment and Plan (Free Text) Assessment: maintain hd tts bp high-?meds held. resume meds
--- NOTE | 2017-05-14 11:19 | CP.PCM.PN ---
Subjective - Date & Time of Evaluation Date of Evaluation: 05/14/17 Time of Evaluation: 11:12 - Subjective Subjective: Podiatry Progress note for Dr. Oakley 51 year old female seen at dialysis this morning regarding left foot gangrene. Patient does not speak and only motions her head yes and know. Patient refused physical examination. She denies F/C/N/V/CP/SOB Objective - Vital Signs/Intake and Output Vital Signs (last 24 hours): Temp Pulse Resp BP Pulse Ox 98 F 99 H 20 119/65 95 05/14/17 10:00 05/14/17 10:00 05/14/17 10:00 05/14/17 10:45 05/14/17 10:00 Intake and Output: 05/14/17 05/14/17 06:59 18:59 Intake Total 500 150 Output Total 350 0 Balance 150 150 - Medications Medications: Current Medications Acetaminophen (Tylenol 325mg Tab) 650 mg PO Q8H [facility] Last Admin: 05/14/17 08:40 Dose: Not Given Acyclovir (Zovirax 5% Oint) 1 gm EXT Q3H [facility] Last Admin: 05/14/17 10:59 Dose: Not Given Amlodipine Besylate (Norvasc) 2.5 mg PO DAILY [facility] Last Admin: 05/14/17 10:57 Dose: Not Given Aspirin (Ecotrin) 81 mg PO DAILY [facility] Last Admin: 05/14/17 10:57 Dose: Not Given Calcium Acetate (Phoslo) 2,668 mg PO TIDCC [facility] Last Admin: 05/14/17 09:23 Dose: 2,668 mg Carvedilol (Coreg) 3.125 mg PO BID [facility] Last Admin: 05/14/17 09:23 Dose: 3.125 mg Clopidogrel Bisulfate (Plavix) 75 mg PO DAILY [facility] Last Admin: 05/14/17 09:23 Dose: 75 mg Diphenhydramine HCl (Benadryl) 25 mg IVP Q5H PRN PRN Reason: Itching / Pruritus Last Admin: 05/14/17 06:32 Dose: 25 mg Diphenhydramine HCl (Benadryl) 25 mg PO Q5H PRN PRN Reason: Itching / Pruritus Last Admin: 05/09/17 14:48 Dose: 25 mg Epoetin Alec (Procrit) 10,000 unit IV TTS [facility] Last Admin: 05/14/17 11:01 Dose: 10,000 unit Famotidine (Pepcid) 20 mg PO DAILY [facility] Last Admin: 05/14/17 09:23 Dose: 20 mg Gabapentin (Neurontin) 100 mg PO QPM [facility] Last Admin: 05/13/17 18:48 Dose: 100 mg Hydromorphone HCl (Dilaudid) 0.5 mg IVP Q5H PRN PRN Reason: Pain, moderate (4-7) Last Admin: 05/14/17 06:32 Dose: 0.5 mg Ciprofloxacin (Cipro 200mg/100ml D5w) 100 mls @ 67 mls/hr IVPB Q12H [facility] Last Admin: 05/14/17 06:34 Dose: 67 mls/hr Linezolid (Zyvox 600mg/300ml D5w) 600 mg in 300 mls @ 200 mls/hr IVPB Q12 [facility] Last Admin: 05/14/17 10:59 Dose: Not Given Insulin Glargine (Lantus) 10 unit SC HS [facility] Last Admin: 05/13/17 21:45 Dose: 10 units Insulin Human Regular (Novolin R) 0 unit SC ACHS [facility] PRN Reason: Protocol Last Admin: 05/14/17 09:24 Dose: 1 unit Oxycodone/Acetaminophen (Percocet 5/325 Mg Tab) 1 tab PO Q6H PRN PRN Reason: Pain,moderate(4-7),IF NO IV/IM Stop: 05/15/17 17:01 Last Admin: 05/14/17 09:29 Dose: 1 tab Saccharomyces Boulardii (Florastor) 250 mg PO TID [facility] Last Admin: 05/14/17 09:23 Dose: 250 mg Vitamin B Complex/Vit C/Folic Acid (Nephro-Cony) 1 tab PO 0800 [facility] Last Admin: 05/14/17 09:23 Dose: 1 tab - Labs Labs: 05/14/17 07:17 05/14/17 07:17 - Constitutional Appears: Non-toxic, No Acute Distress - Neurological Exam Neurological Exam: Alert, Awake - Psychiatric Exam Psychiatric exam: Normal Affect, Normal Mood Assessment and Plan - Assessment and Plan (Free Text) Assessment: 51 year old female with left foot diffuse pedal gangrene, secondary to ischemia Plan: Patient was seen Discussed with attending Dr. Oakley Continue managing lower extremity pain with analgesics Patient to fu with Dr. Oakley upon d/c Podiatry will continue to follow while in house
--- NOTE | 2017-05-14 15:17 | CP.PCM.PN ---
<KatiaJoelle S - Last Filed: 05/14/17 17:04> Subjective - Date & Time of Evaluation Date of Evaluation: 05/14/17 Time of Evaluation: 15:15 - Subjective Subjective: [employer] AGENT notes Pt seen today post HD , denies any SOB , c/o pain to the left foot A FEBRILE Objective - Vital Signs/Intake and Output Vital Signs (last 24 hours): Temp Pulse Resp BP Pulse Ox 97.8 F 98 H 18 107/77 95 05/14/17 13:30 05/14/17 13:30 05/14/17 13:30 05/14/17 13:30 05/14/17 13:30 Intake and Output: 05/14/17 05/14/17 06:59 18:59 Intake Total 500 150 Output Total 350 0 Balance 150 150 - Medications Medications: Current Medications Acetaminophen (Tylenol 325mg Tab) 650 mg PO Q8H [facility] Last Admin: 05/14/17 08:40 Dose: Not Given Acyclovir (Zovirax 5% Oint) 1 gm EXT Q3H [facility] Last Admin: 05/14/17 14:30 Dose: Not Given Amlodipine Besylate (Norvasc) 2.5 mg PO DAILY [facility] Last Admin: 05/14/17 10:57 Dose: Not Given Aspirin (Ecotrin) 81 mg PO DAILY [facility] Last Admin: 05/14/17 10:57 Dose: Not Given Calcium Acetate (Phoslo) 2,668 mg PO TIDCC [facility] Last Admin: 05/14/17 12:30 Dose: Not Given Carvedilol (Coreg) 3.125 mg PO BID [facility] Last Admin: 05/14/17 09:23 Dose: 3.125 mg Clopidogrel Bisulfate (Plavix) 75 mg PO DAILY [facility] Last Admin: 05/14/17 09:23 Dose: 75 mg Diphenhydramine HCl (Benadryl) 25 mg IVP Q5H PRN PRN Reason: Itching / Pruritus Last Admin: 05/14/17 14:19 Dose: 25 mg Diphenhydramine HCl (Benadryl) 25 mg PO Q5H PRN PRN Reason: Itching / Pruritus Last Admin: 05/09/17 14:48 Dose: 25 mg Epoetin Alec (Procrit) 10,000 unit IV TTS [facility] Last Admin: 05/14/17 11:01 Dose: 10,000 unit Famotidine (Pepcid) 20 mg PO DAILY [facility] Last Admin: 05/14/17 09:23 Dose: 20 mg Gabapentin (Neurontin) 100 mg PO QPM [facility] Last Admin: 05/13/17 18:48 Dose: 100 mg Hydromorphone HCl (Dilaudid) 0.5 mg IVP Q5H PRN PRN Reason: Pain, moderate (4-7) Last Admin: 05/14/17 14:20 Dose: 0.5 mg Ciprofloxacin (Cipro 200mg/100ml D5w) 100 mls @ 67 mls/hr IVPB Q12H [facility] Last Admin: 05/14/17 06:34 Dose: 67 mls/hr Linezolid (Zyvox 600mg/300ml D5w) 600 mg in 300 mls @ 200 mls/hr IVPB Q12 [facility] Last Admin: 05/14/17 10:59 Dose: Not Given Insulin Glargine (Lantus) 10 unit SC HS [facility] Last Admin: 05/13/17 21:45 Dose: 10 units Insulin Human Regular (Novolin R) 0 unit SC ACHS [facility] PRN Reason: Protocol Last Admin: 05/14/17 12:10 Dose: Not Given Oxycodone/Acetaminophen (Percocet 5/325 Mg Tab) 1 tab PO Q6H PRN PRN Reason: Pain,moderate(4-7),IF NO IV/IM Stop: 05/15/17 17:01 Last Admin: 05/14/17 09:29 Dose: 1 tab Saccharomyces Boulardii (Florastor) 250 mg PO TID [facility] Last Admin: 05/14/17 14:19 Dose: 250 mg Vitamin B Complex/Vit C/Folic Acid (Nephro-Cony) 1 tab PO 0800 [facility] Last Admin: 05/14/17 09:23 Dose: 1 tab - Labs Labs: 05/14/17 07:17 05/14/17 07:17 Assessment and Plan - Assessment and Plan (Free Text) Assessment: A/P 51 yr old female admitted for ESRD/Dry gangrene of the left foot Patient accepted at [facility] for rehab Discussed the plan with Patient , and pt opted to do surgery of foot before transfer to rehab D/W Dr. Amaya , possible OR tomorrow, due to HD schedule The above plan discussed with Dr. Lord <Rod Lord - Last Filed: 05/14/17 19:44> Subjective - Subjective Subjective: agree with pt is going for surgery for left foot will continue to monitor Objective - Vital Signs/Intake and Output Vital Signs (last 24 hours): Temp Pulse Resp BP Pulse Ox 98.2 F 99 H 18 145/65 96 05/14/17 16:00 05/14/17 18:45 05/14/17 13:30 05/14/17 18:45 05/14/17 16:00 Intake and Output: 05/14/17 05/15/17 18:59 06:59 Intake Total 450 Output Total 0 Balance 450 - Medications Medications: Current Medications Acetaminophen (Tylenol 325mg Tab) 650 mg PO Q8H [facility] Last Admin: 05/14/17 16:41 Dose: Not Given Acyclovir (Zovirax 5% Oint) 1 gm EXT Q3H [facility] Last Admin: 05/14/17 18:43 Dose: Not Given Amlodipine Besylate (Norvasc) 2.5 mg PO DAILY [facility] Last Admin: 05/14/17 10:57 Dose: Not Given Aspirin (Ecotrin) 81 mg PO DAILY [facility] Last Admin: 05/14/17 10:57 Dose: Not Given Calcium Acetate (Phoslo) 2,668 mg PO TIDCC [facility] Last Admin: 05/14/17 18:38 Dose: Not Given Carvedilol (Coreg) 3.125 mg PO BID [facility] Last Admin: 05/14/17 18:38 Dose: 3.125 mg Clopidogrel Bisulfate (Plavix) 75 mg PO DAILY [facility] Last Admin: 05/14/17 09:23 Dose: 75 mg Diphenhydramine HCl (Benadryl) 25 mg IVP Q5H PRN PRN Reason: Itching / Pruritus Last Admin: 05/14/17 19:34 Dose: 25 mg Diphenhydramine HCl (Benadryl) 25 mg PO Q5H PRN PRN Reason: Itching / Pruritus Last Admin: 05/09/17 14:48 Dose: 25 mg Epoetin Alec (Procrit) 10,000 unit IV TTS [facility] Last Admin: 05/14/17 11:01 Dose: 10,000 unit Famotidine (Pepcid) 20 mg PO DAILY [facility] Last Admin: 05/14/17 09:23 Dose: 20 mg Gabapentin (Neurontin) 100 mg PO QPM [facility] Last Admin: 05/14/17 18:37 Dose: 100 mg Hydromorphone HCl (Dilaudid) 0.5 mg IVP Q5H PRN PRN Reason: Pain, moderate (4-7) Last Admin: 05/14/17 19:34 Dose: 0.5 mg Ciprofloxacin (Cipro 200mg/100ml D5w) 100 mls @ 67 mls/hr IVPB Q12H [facility] Last Admin: 05/14/17 06:34 Dose: 67 mls/hr Linezolid (Zyvox 600mg/300ml D5w) 600 mg in 300 mls @ 200 mls/hr IVPB Q12 [facility] Last Admin: 05/14/17 10:59 Dose: Not Given Insulin Glargine (Lantus) 10 unit SC HS [facility] Last Admin: 05/13/17 21:45 Dose: 10 units Insulin Human Regular (Novolin R) 0 unit SC ACHS [facility] PRN Reason: Protocol Last Admin: 05/14/17 18:39 Dose: 1 unit Oxycodone/Acetaminophen (Percocet 5/325 Mg Tab) 1 tab PO Q6H PRN PRN Reason: Pain,moderate(4-7),IF NO IV/IM Stop: 05/15/17 17:01 Last Admin: 05/14/17 09:29 Dose: 1 tab Saccharomyces Boulardii (Florastor) 250 mg PO TID [facility] Last Admin: 05/14/17 18:37 Dose: 250 mg Vitamin B Complex/Vit C/Folic Acid (Nephro-Cony) 1 tab PO 0800 [facility] Last Admin: 05/14/17 09:23 Dose: 1 tab - Labs Labs: 05/14/17 07:17 05/14/17 07:17
[2017-05-14] MEDS: (Lantus) Insulin Glargine, Recombinant SC SCH (22:15)
--- NOTE | 2017-05-14 22:19 | CP.PCM.PCO ---
Physician Communication Note - Physician Communication Note Physician Communication Note: for left BKA tomorrow - NPO @ [facility]
[2017-05-15] MEDS: Acyclovir 5% Oint (15 gm) EXT SCH ×7 (00:29→19:48)
[2017-05-15] MEDS: DiphenhydrAMINE 50 mg/ml Inj IVP PRN ×5 (00:36→22:04)
[2017-05-15] MEDS: HYDROmorphone 0.5 mg/0.5 ml ISec IVP PRN ×5 (00:36→22:04)
[2017-05-15] MEDS: (Novolin R) Insulin Human Regular 100 units/ml vial SC SCH ×4 (07:38→23:02)
[2017-05-15] MEDS: Ciprofloxacin 200mg/100ml D5W 100 ML IVPB SCH ×3 (08:08→20:58)
[2017-05-15 08:15] LABS: HEMATOCRIT 24.4 % (34.0-47.0); MEAN CORPUSCULAR HEMOGLOBIN 32.7 pg (27.0-31.0); MEAN PLATELET VOLUME 8.8 fL (7.2-11.7); RED CELL DISTRIBUTION WIDTH 21.3 % (11.5-14.5); WHITE BLOOD COUNT 10.2 K/uL (4.8-10.8)
[2017-05-15 08:43] LABS: BILIRUBIN,TOTAL 0.4 mg/dL (0.2-1.3); CALCIUM 8.8 mg/dl (8.6-10.4); POTASSIUM 4.4 mmol/L (3.6-5.2)
[2017-05-15] MEDS: Multivitamin Vitamin B Complex (Nephro-Vite) Tab PO SCH (08:45)
[2017-05-15] MEDS: Saccharomyces Boulardi 250 mg Cap PO SCH ×3 (11:12→18:31)
[2017-05-15] MEDS: Linezolid 600 mg in D5W 300 ml 600 MG/300 ML BAG IVPB SCH ×2 (11:13→22:09)
--- NOTE | 2017-05-15 13:34 | CP.PCM.PN ---
Subjective - Date & Time of Evaluation Date of Evaluation: 05/15/17 Time of Evaluation: 13:32 - Subjective Subjective: Events noted- will need BKA- scheduled for 05/16 Has been afebrile; BP controlled Depressed; otherwise same s/p dialysis 05/14- tolerated well Objective - Vital Signs/Intake and Output Vital Signs (last 24 hours): Temp Pulse Resp BP Pulse Ox 98.4 F 97 H 20 157/75 H 96 05/15/17 08:56 05/15/17 08:56 05/15/17 08:56 05/15/17 08:56 05/15/17 08:56 Intake and Output: 05/15/17 05/15/17 06:59 18:59 Intake Total 850 Output Total 0 Balance 850 0 - Medications Medications: Current Medications Acetaminophen (Tylenol 325mg Tab) 650 mg PO Q8H [facility] Last Admin: 05/15/17 07:39 Dose: Not Given Acyclovir (Zovirax 5% Oint) 1 gm EXT Q3H [facility] Last Admin: 05/15/17 12:28 Dose: Not Given Amlodipine Besylate (Norvasc) 2.5 mg PO DAILY [facility] Last Admin: 05/15/17 11:13 Dose: 2.5 mg Aspirin (Ecotrin) 81 mg PO DAILY [facility] Last Admin: 05/15/17 11:25 Dose: Not Given Calcium Acetate (Phoslo) 2,668 mg PO TIDCC [facility] Last Admin: 05/15/17 12:28 Dose: Not Given Carvedilol (Coreg) 3.125 mg PO BID [facility] Last Admin: 05/15/17 11:12 Dose: 3.125 mg Clopidogrel Bisulfate (Plavix) 75 mg PO DAILY [facility] Last Admin: 05/15/17 11:12 Dose: 75 mg Diphenhydramine HCl (Benadryl) 25 mg IVP Q5H PRN PRN Reason: Itching / Pruritus Last Admin: 05/15/17 11:12 Dose: 25 mg Diphenhydramine HCl (Benadryl) 25 mg PO Q5H PRN PRN Reason: Itching / Pruritus Last Admin: 05/09/17 14:48 Dose: 25 mg Epoetin Alec (Procrit) 10,000 unit IV TTS [facility] Last Admin: 05/14/17 11:01 Dose: 10,000 unit Famotidine (Pepcid) 20 mg PO DAILY [facility] Last Admin: 05/15/17 11:12 Dose: 20 mg Gabapentin (Neurontin) 100 mg PO QPM [facility] Last Admin: 05/14/17 18:37 Dose: 100 mg Hydromorphone HCl (Dilaudid) 0.5 mg IVP Q5H PRN PRN Reason: Pain, moderate (4-7) Last Admin: 05/15/17 11:11 Dose: 0.5 mg Ciprofloxacin (Cipro 200mg/100ml D5w) 100 mls @ 67 mls/hr IVPB Q12H [facility] Last Admin: 05/15/17 08:08 Dose: 67 mls/hr Linezolid (Zyvox 600mg/300ml D5w) 600 mg in 300 mls @ 200 mls/hr IVPB Q12 [facility] Last Admin: 05/15/17 11:13 Dose: 200 mls/hr Insulin Glargine (Lantus) 10 unit SC HS [facility] Last Admin: 05/14/17 22:15 Dose: 10 units Insulin Human Regular (Novolin R) 0 unit SC ACHS [facility] PRN Reason: Protocol Last Admin: 05/15/17 12:28 Dose: Not Given Oxycodone/Acetaminophen (Percocet 5/325 Mg Tab) 1 tab PO Q6H PRN PRN Reason: Pain,moderate(4-7),IF NO IV/IM Stop: 05/15/17 17:01 Last Admin: 05/14/17 23:01 Dose: 1 tab Saccharomyces Boulardii (Florastor) 250 mg PO TID [facility] Last Admin: 05/15/17 11:12 Dose: 250 mg Vitamin B Complex/Vit C/Folic Acid (Nephro-Cony) 1 tab PO 0800 [facility] Last Admin: 05/15/17 08:45 Dose: Not Given - Labs Labs: 05/15/17 08:07 05/15/17 08:07 PT 11.4 SECONDS (9.7-12.2) 05/15/17 08:07 INR 1.0 05/15/17 08:07 APTT 34 SECONDS (21-34) 05/15/17 08:07 - Constitutional Appears: No Acute Distress, Chronically Ill - Head Exam Head Exam: ATRAUMATIC, NORMAL INSPECTION - Eye Exam Eye Exam: EOMI, Normal appearance - Neck Exam Neck Exam: Normal Inspection. absent: Tenderness - Respiratory Exam Respiratory Exam: Clear to Ausculation Bilateral, NORMAL BREATHING PATTERN - Cardiovascular Exam Cardiovascular Exam: REGULAR RHYTHM, +S1 - GI/Abdominal Exam GI & Abdominal Exam: Soft. absent: Tenderness - Extremities Exam Extremities Exam: Calf Tenderness, Tenderness - Neurological Exam Neurological Exam: Alert, CN II-XII Intact - Skin Skin Exam: Dry, Warm Assessment and Plan (1) Type 2 diabetes mellitus with diabetic nephropathy Status: Acute (2) S/P BKA (below knee amputation) unilateral Status: Acute (3) End-stage renal disease on hemodialysis Status: Acute (4) Fluid overload Status: Acute (5) Type 2 diabetes mellitus with diabetic nephropathy Status: Acute (6) Gangrene associated with type 2 diabetes mellitus Status: Acute - Assessment and Plan (Free Text) Plan: Repeat dialysis today second BKA in AM might need blood transfusion
--- NOTE | 2017-05-15 14:29 | CP.PCM.PN ---
Subjective - Date & Time of Evaluation Date of Evaluation: 05/15/17 Time of Evaluation: 13:30 - Subjective Subjective: Vascular Surgery Dr. Clark Pt S&E @bedside. NAEO. Pt scheduled for L BKA today, however pt refused. Pt agreed to have operation tomorrow. Pt has no complaints. tolerating diet. Objective - Vital Signs/Intake and Output Vital Signs (last 24 hours): Temp Pulse Resp BP Pulse Ox 98.4 F 97 H 20 157/75 H 96 05/15/17 08:56 05/15/17 08:56 05/15/17 08:56 05/15/17 08:56 05/15/17 08:56 Intake and Output: 05/15/17 05/15/17 06:59 18:59 Intake Total 850 Output Total 0 Balance 850 0 - Medications Medications: Current Medications Acetaminophen (Tylenol 325mg Tab) 650 mg PO Q8H [facility] Last Admin: 05/15/17 07:39 Dose: Not Given Acyclovir (Zovirax 5% Oint) 1 gm EXT Q3H [facility] Last Admin: 05/15/17 14:13 Dose: Not Given Amlodipine Besylate (Norvasc) 2.5 mg PO DAILY [facility] Last Admin: 05/15/17 11:13 Dose: 2.5 mg Aspirin (Ecotrin) 81 mg PO DAILY [facility] Last Admin: 05/15/17 11:25 Dose: Not Given Calcium Acetate (Phoslo) 2,668 mg PO TIDCC [facility] Last Admin: 05/15/17 12:28 Dose: Not Given Carvedilol (Coreg) 3.125 mg PO BID [facility] Last Admin: 05/15/17 11:12 Dose: 3.125 mg Clopidogrel Bisulfate (Plavix) 75 mg PO DAILY [facility] Last Admin: 05/15/17 11:12 Dose: 75 mg Diphenhydramine HCl (Benadryl) 25 mg IVP Q5H PRN PRN Reason: Itching / Pruritus Last Admin: 05/15/17 11:12 Dose: 25 mg Diphenhydramine HCl (Benadryl) 25 mg PO Q5H PRN PRN Reason: Itching / Pruritus Last Admin: 05/09/17 14:48 Dose: 25 mg Epoetin Alec (Procrit) 10,000 unit IV TTS [facility] Last Admin: 05/14/17 11:01 Dose: 10,000 unit Famotidine (Pepcid) 20 mg PO DAILY [facility] Last Admin: 05/15/17 11:12 Dose: 20 mg Gabapentin (Neurontin) 100 mg PO QPM [facility] Last Admin: 05/14/17 18:37 Dose: 100 mg Hydromorphone HCl (Dilaudid) 0.5 mg IVP Q5H PRN PRN Reason: Pain, moderate (4-7) Last Admin: 05/15/17 11:11 Dose: 0.5 mg Ciprofloxacin (Cipro 200mg/100ml D5w) 100 mls @ 67 mls/hr IVPB Q12H [facility] Last Admin: 05/15/17 08:08 Dose: 67 mls/hr Linezolid (Zyvox 600mg/300ml D5w) 600 mg in 300 mls @ 200 mls/hr IVPB Q12 [facility] Last Admin: 05/15/17 11:13 Dose: 200 mls/hr Insulin Glargine (Lantus) 10 unit SC HS [facility] Last Admin: 05/14/17 22:15 Dose: 10 units Insulin Human Regular (Novolin R) 0 unit SC ACHS [facility] PRN Reason: Protocol Last Admin: 05/15/17 12:28 Dose: Not Given Oxycodone/Acetaminophen (Percocet 5/325 Mg Tab) 1 tab PO Q6H PRN PRN Reason: Pain,moderate(4-7),IF NO IV/IM Stop: 05/15/17 17:01 Last Admin: 05/14/17 23:01 Dose: 1 tab Saccharomyces Boulardii (Florastor) 250 mg PO TID [facility] Last Admin: 05/15/17 14:15 Dose: 250 mg Vitamin B Complex/Vit C/Folic Acid (Nephro-Cony) 1 tab PO 0800 [facility] Last Admin: 05/15/17 08:45 Dose: Not Given - Labs Labs: 05/15/17 08:07 05/15/17 08:07 PT 11.4 SECONDS (9.7-12.2) 05/15/17 08:07 INR 1.0 05/15/17 08:07 APTT 34 SECONDS (21-34) 05/15/17 08:07 - Constitutional Appears: Non-toxic, No Acute Distress - Head Exam Head Exam: NORMAL INSPECTION - Eye Exam Eye Exam: Normal appearance - ENT Exam ENT Exam: Mucous Membranes Moist - Respiratory Exam Respiratory Exam: NORMAL BREATHING PATTERN. absent: Accessory Muscle Use, Respiratory Distress - Cardiovascular Exam Cardiovascular Exam: absent: Bradycardia, Tachycardia - GI/Abdominal Exam GI & Abdominal Exam: Soft. absent: Distended Additional comments: ostomy on place - Neurological Exam Neurological Exam: Alert, Awake, Oriented x3 - Psychiatric Exam Psychiatric exam: Normal Affect, Normal Mood - Skin Skin Exam: Dry, Intact, Normal Color, Warm Assessment and Plan - Assessment and Plan (Free Text) Assessment: 51 y/ol F s/p subtotal colectomy with ileostomy and right BKA - cont medical management - dialysis this evening - NPO@[place] - OR tomorrow for L BKA Pt seen and discussed w/ Dr. Eduardo Pena DO PGY2
[2017-05-15] MEDS: Oxycodone/Acetaminophen 5/325 mg Tab PO PRN (14:52)
--- NOTE | 2017-05-15 17:10 | CP.PCM.PN ---
Subjective - Date & Time of Evaluation Date of Evaluation: 05/15/17 Time of Evaluation: 14:00 - Subjective Subjective: LOOM TUNER NOTES Patient seen today, with surgical team (Dr. Valenzuela) and Dr. Torres Valenzuela discussed plan for OR tomorrow and patient agrees for procedure Dr. Macdonald will order HD today and she will receive PRBC during HD the above plan discussed with Objective - Vital Signs/Intake and Output Vital Signs (last 24 hours): Temp Pulse Resp BP Pulse Ox 97.9 F 95 H 19 174/79 H 97 05/15/17 16:57 05/15/17 16:57 05/15/17 16:57 05/15/17 16:57 05/15/17 15:25 Intake and Output: 05/15/17 05/15/17 06:59 18:59 Intake Total 850 779 Output Total 0 Balance 850 779 - Medications Medications: Current Medications Acetaminophen (Tylenol 325mg Tab) 650 mg PO Q8H [facility] Last Admin: 05/15/17 14:50 Dose: Not Given Acyclovir (Zovirax 5% Oint) 1 gm EXT Q3H [facility] Last Admin: 05/15/17 14:13 Dose: Not Given Amlodipine Besylate (Norvasc) 2.5 mg PO DAILY [facility] Last Admin: 05/15/17 11:13 Dose: 2.5 mg Aspirin (Ecotrin) 81 mg PO DAILY [facility] Last Admin: 05/15/17 11:25 Dose: Not Given Calcium Acetate (Phoslo) 2,668 mg PO TIDCC [facility] Last Admin: 05/15/17 12:28 Dose: Not Given Carvedilol (Coreg) 3.125 mg PO BID [facility] Last Admin: 05/15/17 11:12 Dose: 3.125 mg Clopidogrel Bisulfate (Plavix) 75 mg PO DAILY [facility] Last Admin: 05/15/17 11:12 Dose: 75 mg Diphenhydramine HCl (Benadryl) 25 mg IVP Q5H PRN PRN Reason: Itching / Pruritus Last Admin: 05/15/17 16:24 Dose: 25 mg Diphenhydramine HCl (Benadryl) 25 mg PO Q5H PRN PRN Reason: Itching / Pruritus Last Admin: 05/09/17 14:48 Dose: 25 mg Epoetin Alec (Procrit) 10,000 unit IV TTS [facility] Last Admin: 05/14/17 11:01 Dose: 10,000 unit Famotidine (Pepcid) 20 mg PO DAILY [facility] Last Admin: 05/15/17 11:12 Dose: 20 mg Gabapentin (Neurontin) 100 mg PO QPM [facility] Last Admin: 05/14/17 18:37 Dose: 100 mg Hydromorphone HCl (Dilaudid) 0.5 mg IVP Q5H PRN PRN Reason: Pain, moderate (4-7) Last Admin: 05/15/17 16:25 Dose: 0.5 mg Ciprofloxacin (Cipro 200mg/100ml D5w) 100 mls @ 67 mls/hr IVPB Q12H [facility] Last Admin: 05/15/17 08:08 Dose: 67 mls/hr Linezolid (Zyvox 600mg/300ml D5w) 600 mg in 300 mls @ 200 mls/hr IVPB Q12 [facility] Last Admin: 05/15/17 11:13 Dose: 200 mls/hr Insulin Glargine (Lantus) 10 unit SC HS [facility] Last Admin: 05/14/17 22:15 Dose: 10 units Insulin Human Regular (Novolin R) 0 unit SC ACHS [facility] PRN Reason: Protocol Last Admin: 05/15/17 12:28 Dose: Not Given Saccharomyces Boulardii (Florastor) 250 mg PO TID [facility] Last Admin: 05/15/17 14:15 Dose: 250 mg Vitamin B Complex/Vit C/Folic Acid (Nephro-Cony) 1 tab PO 0800 [facility] Last Admin: 05/15/17 08:45 Dose: Not Given - Labs Labs: 05/15/17 08:07 05/15/17 08:07 PT 11.4 SECONDS (9.7-12.2) 05/15/17 08:07 INR 1.0 05/15/17 08:07 APTT 34 SECONDS (21-34) 05/15/17 08:07
[2017-05-15] MEDS: Epoetin Alfa 10,000 unit/ml Dialysis IV SCH (18:04)
[2017-05-15] MEDS: (Lantus) Insulin Glargine, Recombinant SC SCH (22:04)
--- NOTE | 2017-05-15 23:16 | CP.PCM.PN ---
Subjective - Date & Time of Evaluation Date of Evaluation: 05/15/17 Time of Evaluation: 23:14 - Subjective Subjective: pt refused for surgery today and now agreeing for surgery in am pt is c/o more pain depressed feeling not well about surgery but she is needing the surgery for left leg ischemia Objective - Vital Signs/Intake and Output Vital Signs (last 24 hours): Temp Pulse Resp BP Pulse Ox 97.9 F 94 H 20 184/74 H 96 05/15/17 19:47 05/15/17 19:47 05/15/17 19:47 05/15/17 19:47 05/15/17 19:47 Intake and Output: 05/15/17 05/16/17 18:59 06:59 Intake Total 1055 Output Total 0 Balance 1055 chest clear - Medications Medications: Current Medications Acetaminophen (Tylenol 325mg Tab) 650 mg PO Q8H [facility] Last Admin: 05/15/17 14:50 Dose: Not Given Acyclovir (Zovirax 5% Oint) 1 gm EXT Q3H [facility] Last Admin: 05/15/17 19:48 Dose: Not Given Amlodipine Besylate (Norvasc) 2.5 mg PO DAILY [facility] Last Admin: 05/15/17 11:13 Dose: 2.5 mg Aspirin (Ecotrin) 81 mg PO DAILY [facility] Last Admin: 05/15/17 11:25 Dose: Not Given Calcium Acetate (Phoslo) 2,668 mg PO TIDCC [facility] Last Admin: 05/15/17 18:32 Dose: Not Given Carvedilol (Coreg) 3.125 mg PO BID [facility] Last Admin: 05/15/17 18:34 Dose: 3.125 mg Clopidogrel Bisulfate (Plavix) 75 mg PO DAILY [facility] Last Admin: 05/15/17 11:12 Dose: 75 mg Diphenhydramine HCl (Benadryl) 25 mg IVP Q5H PRN PRN Reason: Itching / Pruritus Last Admin: 05/15/17 22:04 Dose: 25 mg Diphenhydramine HCl (Benadryl) 25 mg PO Q5H PRN PRN Reason: Itching / Pruritus Last Admin: 05/09/17 14:48 Dose: 25 mg Epoetin Alec (Procrit) 10,000 unit IV TTS [facility] Last Admin: 05/14/17 11:01 Dose: 10,000 unit Epoetin Alec (Procrit) 10,000 unit IV MWF [facility] Last Admin: 05/15/17 18:04 Dose: 10,000 unit Famotidine (Pepcid) 20 mg PO DAILY [facility] Last Admin: 05/15/17 11:12 Dose: 20 mg Gabapentin (Neurontin) 100 mg PO QPM [facility] Last Admin: 05/15/17 18:32 Dose: Not Given Hydromorphone HCl (Dilaudid) 0.5 mg IVP Q5H PRN PRN Reason: Pain, moderate (4-7) Last Admin: 05/15/17 22:04 Dose: 0.5 mg Ciprofloxacin (Cipro 200mg/100ml D5w) 100 mls @ 67 mls/hr IVPB Q12H [facility] Last Admin: 05/15/17 20:58 Dose: 67 mls/hr Linezolid (Zyvox 600mg/300ml D5w) 600 mg in 300 mls @ 200 mls/hr IVPB Q12 [facility] Last Admin: 05/15/17 22:09 Dose: 200 mls/hr Insulin Glargine (Lantus) 10 unit SC HS [facility] Last Admin: 05/15/17 22:04 Dose: 10 units Insulin Human Regular (Novolin R) 0 unit SC ACHS [facility] PRN Reason: Protocol Last Admin: 05/15/17 23:02 Dose: Not Given Saccharomyces Boulardii (Florastor) 250 mg PO TID [facility] Last Admin: 05/15/17 18:31 Dose: Not Given Vitamin B Complex/Vit C/Folic Acid (Nephro-Cony) 1 tab PO 0800 [facility] Last Admin: 05/15/17 08:45 Dose: Not Given - Labs Labs: 05/15/17 08:07 05/15/17 08:07 PT 11.4 SECONDS (9.7-12.2) 05/15/17 08:07 INR 1.0 05/15/17 08:07 APTT 34 SECONDS (21-34) 05/15/17 08:07 Assessment and Plan (1) End-stage renal disease on hemodialysis Status: Acute (2) Gangrene associated with type 2 diabetes mellitus Status: Acute (3) S/P BKA (below knee amputation) unilateral Status: Acute
[2017-05-16] MEDS: Acyclovir 5% Oint (15 gm) EXT SCH ×8 (00:32→22:53)
[2017-05-16] MEDS: DiphenhydrAMINE 50 mg/ml Inj IVP PRN ×5 (03:09→23:29)
[2017-05-16] MEDS: HYDROmorphone 0.5 mg/0.5 ml ISec IVP PRN ×5 (03:09→22:11)
[2017-05-16] MEDS: Ciprofloxacin 200mg/100ml D5W 100 ML IVPB SCH ×2 (06:30→18:01)
[2017-05-16] MEDS: Multivitamin Vitamin B Complex (Nephro-Vite) Tab PO SCH (07:53)
[2017-05-16] MEDS: (Novolin R) Insulin Human Regular 100 units/ml vial SC SCH ×4 (07:53→21:34)
--- NOTE | 2017-05-16 10:20 | CP.PCM.PN ---
Subjective - Date & Time of Evaluation Date of Evaluation: 05/16/17 Time of Evaluation: :17 - Subjective Subjective: s/p dialysis 05/15- UF 2000ml received 2 units prbcs blood transfusion with HD 05/15 BP labile- to get meds For left BKA for gangrene today Alert and understands need for surgery Objective - Vital Signs/Intake and Output Vital Signs (last 24 hours): Temp Pulse Resp BP Pulse Ox 98.1 F 101 H 20 196/90 H 98 05/16/17 08:12 05/16/17 08:12 05/16/17 08:12 05/16/17 08:12 05/16/17 08:12 Intake and Output: 05/16/17 05/16/17 06:59 18:59 Intake Total 700 Output Total 0 Balance 700 - Medications Medications: Current Medications Acetaminophen (Tylenol 325mg Tab) 650 mg PO Q8H [facility] Last Admin: 05/16/17 07:54 Dose: Not Given Acyclovir (Zovirax 5% Oint) 1 gm EXT Q3H [facility] Last Admin: 05/16/17 07:54 Dose: Not Given Amlodipine Besylate (Norvasc) 2.5 mg PO DAILY [facility] Last Admin: 05/15/17 11:13 Dose: 2.5 mg Aspirin (Ecotrin) 81 mg PO DAILY [facility] Last Admin: 05/15/17 11:25 Dose: Not Given Calcium Acetate (Phoslo) 2,668 mg PO TIDCC [facility] Last Admin: 05/16/17 07:53 Dose: Not Given Carvedilol (Coreg) 3.125 mg PO BID [facility] Last Admin: 05/16/17 08:23 Dose: 3.125 mg Clopidogrel Bisulfate (Plavix) 75 mg PO DAILY [facility] Last Admin: 05/15/17 11:12 Dose: 75 mg Diphenhydramine HCl (Benadryl) 25 mg IVP Q5H PRN PRN Reason: Itching / Pruritus Last Admin: 05/16/17 08:12 Dose: 25 mg Diphenhydramine HCl (Benadryl) 25 mg PO Q5H PRN PRN Reason: Itching / Pruritus Last Admin: 05/09/17 14:48 Dose: 25 mg Epoetin Alec (Procrit) 10,000 unit IV MWF [facility] Last Admin: 05/15/17 18:04 Dose: 10,000 unit Famotidine (Pepcid) 20 mg PO DAILY [facility] Last Admin: 05/15/17 11:12 Dose: 20 mg Gabapentin (Neurontin) 100 mg PO QPM [facility] Last Admin: 05/15/17 18:32 Dose: Not Given Hydromorphone HCl (Dilaudid) 0.5 mg IVP Q5H PRN PRN Reason: Pain, moderate (4-7) Last Admin: 05/16/17 08:13 Dose: 0.5 mg Ciprofloxacin (Cipro 200mg/100ml D5w) 100 mls @ 67 mls/hr IVPB Q12H [facility] Last Admin: 05/16/17 06:30 Dose: 67 mls/hr Linezolid (Zyvox 600mg/300ml D5w) 600 mg in 300 mls @ 200 mls/hr IVPB Q12 [facility] Last Admin: 05/15/17 22:09 Dose: 200 mls/hr Insulin Glargine (Lantus) 10 unit SC HS [facility] Last Admin: 05/15/17 22:04 Dose: 10 units Insulin Human Regular (Novolin R) 0 unit SC ACHS [facility] PRN Reason: Protocol Last Admin: 05/16/17 07:53 Dose: Not Given Saccharomyces Boulardii (Florastor) 250 mg PO TID [facility] Last Admin: 05/15/17 18:31 Dose: Not Given Vitamin B Complex/Vit C/Folic Acid (Nephro-Cony) 1 tab PO 0800 [facility] Last Admin: 05/16/17 07:53 Dose: Not Given - Labs Labs: 05/15/17 08:07 05/15/17 08:07 PT 11.4 SECONDS (9.7-12.2) 05/15/17 08:07 INR 1.0 05/15/17 08:07 APTT 34 SECONDS (21-34) 05/15/17 08:07 - Constitutional Appears: No Acute Distress, Chronically Ill - Head Exam Head Exam: ATRAUMATIC, NORMAL INSPECTION - Eye Exam Eye Exam: EOMI, Normal appearance - Neck Exam Neck Exam: Normal Inspection. absent: Tenderness - Respiratory Exam Respiratory Exam: Clear to Ausculation Bilateral, NORMAL BREATHING PATTERN - Cardiovascular Exam Cardiovascular Exam: REGULAR RHYTHM, +S1 - GI/Abdominal Exam GI & Abdominal Exam: Soft. absent: Tenderness - Extremities Exam Extremities Exam: Normal Inspection. absent: Tenderness - Neurological Exam Neurological Exam: Alert, CN II-XII Intact - Skin Skin Exam: Dry, Warm Assessment and Plan (1) Type 2 diabetes mellitus with diabetic nephropathy Status: Acute (2) S/P BKA (below knee amputation) unilateral Status: Acute (3) End-stage renal disease on hemodialysis Status: Acute (4) Fluid overload Status: Acute (5) Type 2 diabetes mellitus with diabetic nephropathy Status: Acute (6) Gangrene associated with type 2 diabetes mellitus Status: Acute - Assessment and Plan (Free Text) Plan: left BKA today repeat dialysis in AM, then MWF repeat labs monitor BP- treat as necessary
[2017-05-16] MEDS: Saccharomyces Boulardi 250 mg Cap PO SCH ×3 (10:54→18:01)
[2017-05-16] MEDS: Linezolid 600 mg in D5W 300 ml 600 MG/300 ML BAG IVPB SCH ×2 (11:00→21:55)
[2017-05-16] MEDS ORDERED: Lactated Ringer's 1,000 ML IV ONE (12:11)
--- NOTE | 2017-05-16 12:26 | CP.PCM.PN ---
Subjective - Date & Time of Evaluation Date of Evaluation: 05/16/17 Time of Evaluation: 12:25 - Subjective Subjective: patient denies possibility of , denies receptive relations Objective - Vital Signs/Intake and Output Vital Signs (last 24 hours): Temp Pulse Resp BP Pulse Ox 98.1 F 101 H 20 196/90 H 98 05/16/17 08:12 05/16/17 08:12 05/16/17 08:12 05/16/17 08:12 05/16/17 08:12 Intake and Output: 05/16/17 05/16/17 06:59 18:59 Intake Total 700 Output Total 0 Balance 700 - Medications Medications: Current Medications Acetaminophen (Tylenol 325mg Tab) 650 mg PO Q8H [facility] Last Admin: 05/16/17 07:54 Dose: Not Given Acyclovir (Zovirax 5% Oint) 1 gm EXT Q3H [facility] Last Admin: 05/16/17 11:04 Dose: Not Given Amlodipine Besylate (Norvasc) 2.5 mg PO DAILY [facility] Last Admin: 05/16/17 10:54 Dose: Not Given Aspirin (Ecotrin) 81 mg PO DAILY [facility] Last Admin: 05/16/17 10:54 Dose: Not Given Calcium Acetate (Phoslo) 2,668 mg PO TIDCC [facility] Last Admin: 05/16/17 07:53 Dose: Not Given Carvedilol (Coreg) 6.25 mg PO BID [facility] Clopidogrel Bisulfate (Plavix) 75 mg PO DAILY [facility] Last Admin: 05/16/17 10:54 Dose: Not Given Diphenhydramine HCl (Benadryl) 25 mg IVP Q5H PRN PRN Reason: Itching / Pruritus Last Admin: 05/16/17 08:12 Dose: 25 mg Diphenhydramine HCl (Benadryl) 25 mg PO Q5H PRN PRN Reason: Itching / Pruritus Last Admin: 05/09/17 14:48 Dose: 25 mg Epoetin Alec (Procrit) 10,000 unit IV MWF [facility] Last Admin: 05/15/17 18:04 Dose: 10,000 unit Famotidine (Pepcid) 20 mg PO DAILY [facility] Last Admin: 05/16/17 10:54 Dose: Not Given Gabapentin (Neurontin) 100 mg PO QPM [facility] Last Admin: 05/15/17 18:32 Dose: Not Given Hydromorphone HCl (Dilaudid) 0.5 mg IVP Q5H PRN PRN Reason: Pain, moderate (4-7) Last Admin: 05/16/17 08:13 Dose: 0.5 mg Ciprofloxacin (Cipro 200mg/100ml D5w) 100 mls @ 67 mls/hr IVPB Q12H [facility] Last Admin: 05/16/17 06:30 Dose: 67 mls/hr Linezolid (Zyvox 600mg/300ml D5w) 600 mg in 300 mls @ 200 mls/hr IVPB Q12 [facility] Last Admin: 05/16/17 11:00 Dose: Not Given Insulin Glargine (Lantus) 10 unit SC HS [facility] Last Admin: 05/15/17 22:04 Dose: 10 units Insulin Human Regular (Novolin R) 0 unit SC ACHS [facility] PRN Reason: Protocol Last Admin: 05/16/17 07:53 Dose: Not Given Saccharomyces Boulardii (Florastor) 250 mg PO TID [facility] Last Admin: 05/16/17 10:54 Dose: Not Given Vitamin B Complex/Vit C/Folic Acid (Nephro-Cony) 1 tab PO 0800 [facility] Last Admin: 05/16/17 07:53 Dose: Not Given - Labs Labs: 05/15/17 08:07 05/15/17 08:07 PT 11.4 SECONDS (9.7-12.2) 05/15/17 08:07 INR 1.0 05/15/17 08:07 APTT 34 SECONDS (21-34) 05/15/17 08:07
[2017-05-16] MEDS ORDERED: Sodium Chloride 0.9% 1,000 ML IV ONE (12:38)
[2017-05-16] MEDS ORDERED: Propofol 10 mg/ml Inj (20 ML) ONE (12:46)
[2017-05-16] MEDS ORDERED: Midazolam 2 MG/2 ML VIAL ONE (12:46)
[2017-05-16] MEDS ORDERED: Metoprolol 1 mg/ml Inj IVP ONE (13:08)
[2017-05-16] MEDS ORDERED: Neostigmine Methylsulfate 3mg/3ml Syringe IV ONE (13:58)
--- NOTE | 2017-05-16 14:27 | PCM.SURG1 ---
Surgeon's Initial Post Op Note - Surgeon's Notes Surgeon: Eduardo Greeter Guest Services: Bella PGY1 Type of Anesthesia: General Endo Anesthesia Administered By: Dr. Cerna Pre-Operative Diagnosis: Left foot gangrene; PD catheter Operative Findings: see operative report Post-Operative Diagnosis: same Operation Performed: Left Below Knee Amputation; Removal of Peritoneal Dialysis Catheter Specimen/Specimens Removed: Peritoneal Dialysis Catheter; Amputated left lower leg Estimated Blood Loss: EBL {In ML}: 200 Blood Products Given: N/A Drains Used: No Drains Post-Op Condition: Good Date of Surgery/Procedure: 05/16/17 Time of Surgery/Procedure: 14:29
[2017-05-16 15:09] LABS: HEMATOCRIT 32.9 % (34.0-47.0); MEAN CORPUSCULAR HEMOGLOBIN 31.2 pg (27.0-31.0); MEAN CORPUSCULAR HGB CONC 33.1 g/dL (33.0-37.0); MEAN PLATELET VOLUME 8.3 fL (7.2-11.7); RED CELL DISTRIBUTION WIDTH 20.4 % (11.5-14.5); WHITE BLOOD COUNT 10.4 K/uL (4.8-10.8)
[2017-05-16 15:12] LABS: MEAN CELL VOLUME 94.3 fL (81.0-99.0)
[2017-05-16] MEDS ORDERED: HYDROmorphone 0.5 mg/0.5 ml ISec IVP PRN ×3 (16:30→18:52)
[2017-05-16] MEDS: (Lantus) Insulin Glargine, Recombinant SC SCH (21:54)
--- NOTE | 2017-05-17 01:22 | OP ---
PROCEDURE DATE: 05/16/2017 PREOPERATIVE DIAGNOSES: Gangrene of left foot and intraperitoneal dialysis catheter. PROCEDURE CARRIED OUT: Left below-knee amputation and removal of Tenckhoff catheter. SURGEON: Harman Clark Jr., MD COORDINATOR CARDIOPULMONARY SERVICES: Dr. Madhu Blanco. ANESTHESIOLOGIST: Dr. Cerna. INDICATIONS: Patient is a 51-year-old woman who previously has been on dialysis, previously a peritoneal dialysis catheter, had severe colitis for which she required emergency colectomy with ileostomy, who has gangrene in the left foot. Prior to the operation, the alternatives of management including endovascular intervention, bypass operations were reviewed and discussed extensively with the patient on multiple occasions. She decided to have a left below-knee amputation as a primary procedure. She had previously undergone multiple interventions on the other way. This option was reviewed with her, discussed with her and this is her decision to carry out a primary below-knee amputation as the initial treatment of the gangrenous foot lesions. Secondly, the peritoneal dialysis catheter was removed, but only the external portion, the intraperitoneal portion, the portion that is in the rectus sheath were into the pelvis was not able to be removed and then if the circumstances were such that it warranted open abdominal exploration for removal of residual portion of the catheter. This would be discussed further with the patient. DESCRIPTION OF PROCEDURE: The patient was given general anesthesia and intravenous antibiotics. The area was prepped and draped, both her leg and the abdomen. The old catheter was removed, segments and multiple incisions were made to remove the entire external portion. The portion had extended down into the peritoneal cavity could not be completely removed and I did not feel it warranted abdominal exploration for removal of the same. Subsequent to this, standard left below-knee amputation was carried out with a blood loss of approximately 300-400 mL. The standard posterior flap approach was used. The bleeding was controlled with the use of hemostatic sutures and cautery and there was excellent vasculature of the bony flap. After completion of the anastomosis, a knee brace was applied and dressing was applied to the abdomen. So operation carried out, left below-knee amputation, removal of Tenckhoff catheter, all are aware that the intraperitoneal portion of the peritoneal dialysis catheter remains in the abdomen. Harman Clark Jr., MD
[2017-05-17] MEDS: HYDROmorphone 0.5 mg/0.5 ml ISec IVP PRN ×7 (02:21→22:35)
[2017-05-17] MEDS: Acyclovir 5% Oint (15 gm) EXT SCH ×8 (02:36→23:59)
[2017-05-17] MEDS: DiphenhydrAMINE 50 mg/ml Inj IVP PRN ×4 (03:58→19:00)
[2017-05-17 04:10] LABS: BASO # 0.1 K/uL (0.0-0.2); BASO % 0.5 % (0.0-2.0); EOS # 0.1 K/uL (0.0-0.7); EOS % 0.4 % (0.0-4.0); HEMATOCRIT 31.1 % (34.0-47.0); LYMPH # 1.7 K/uL (1.0-4.3); LYMPH % 9.5 % (20.0-40.0); MEAN CELL VOLUME 95.7 fL (81.0-99.0); MEAN CORPUSCULAR HEMOGLOBIN 31.1 pg (27.0-31.0); MEAN CORPUSCULAR HGB CONC 32.5 g/dL (33.0-37.0); MEAN PLATELET VOLUME 8.3 fL (7.2-11.7); MONO % 5.9 % (0.0-10.0); PLATELET COUNT 222 K/uL (130-400); RED CELL DISTRIBUTION WIDTH 20.2 % (11.5-14.5); WHITE BLOOD COUNT 17.5 K/uL (4.8-10.8)
[2017-05-17 04:17] LABS: INR 1.1
[2017-05-17 04:23] LABS: ALB/GLOB RATIO 0.8 (1.0-2.1); BILIRUBIN,TOTAL 0.5 mg/dL (0.2-1.3); CALCIUM 9.6 mg/dl (8.6-10.4); PHOSPHOROUS 5.1 mg/dL (2.5-4.5); POTASSIUM 4.6 mmol/L (3.6-5.2); TOTAL PROTEIN 7.8 g/dL (6.3-8.3)
[2017-05-17 05:10] LABS: EOSINOPHIL 1 % (0-4); NEUTROPHIL 84 % (50-75); REACTIVE LYMPHOCYTES 3 % (0-0); TOTAL CELLS COUNTED 100
[2017-05-17] MEDS: Ciprofloxacin 200mg/100ml D5W 100 ML IVPB SCH ×2 (06:18→18:54)
[2017-05-17] MEDS: (Novolin R) Insulin Human Regular 100 units/ml vial SC SCH ×4 (08:26→22:09)
[2017-05-17] MEDS: Multivitamin Vitamin B Complex (Nephro-Vite) Tab PO SCH (08:26)
--- NOTE | 2017-05-17 08:35 | CP.PCM.PN ---
Subjective - Date & Time of Evaluation Date of Evaluation: 05/17/17 Time of Evaluation: 08:00 - Subjective Subjective: Surgery Progress note. Dr. Clark Pt seen and examined at bedside. No acute events overnight. Denies N/V/D. No F/ C. Does report left BKA site pain and states that the pain meds are not helping. No other complaints. Objective - Vital Signs/Intake and Output Vital Signs (last 24 hours): Temp Pulse Resp BP Pulse Ox 98.4 F 99 H 20 140/84 100 05/16/17 23:00 05/16/17 23:00 05/16/17 23:00 05/16/17 23:00 05/16/17 23:00 Intake and Output: 05/17/17 05/17/17 06:59 18:59 Intake Total 600 300 Balance 600 300 - Medications Medications: Current Medications Acetaminophen (Tylenol 325mg Tab) 650 mg PO Q8H [facility] Last Admin: 05/17/17 07:52 Dose: Not Given Acyclovir (Zovirax 5% Oint) 1 gm EXT Q3H [facility] Last Admin: 05/17/17 07:51 Dose: Not Given Amlodipine Besylate (Norvasc) 2.5 mg PO DAILY [facility] Last Admin: 05/16/17 10:54 Dose: Not Given Aspirin (Ecotrin) 81 mg PO DAILY [facility] Last Admin: 05/16/17 10:54 Dose: Not Given Calcium Acetate (Phoslo) 2,668 mg PO TIDCC [facility] Last Admin: 05/16/17 18:01 Dose: 2,668 mg Carvedilol (Coreg) 6.25 mg PO BID [facility] Last Admin: 05/16/17 18:01 Dose: 6.25 mg Clopidogrel Bisulfate (Plavix) 75 mg PO DAILY [facility] Last Admin: 05/16/17 10:54 Dose: Not Given Diphenhydramine HCl (Benadryl) 25 mg PO Q5H PRN PRN Reason: Itching / Pruritus Last Admin: 05/09/17 14:48 Dose: 25 mg Diphenhydramine HCl (Benadryl) 25 mg IVP Q4H PRN PRN Reason: Itching / Pruritus Last Admin: 05/17/17 03:58 Dose: 25 mg Epoetin Alec (Procrit) 10,000 unit IV MWF [facility] Last Admin: 05/15/17 18:04 Dose: 10,000 unit Famotidine (Pepcid) 20 mg PO DAILY [facility] Last Admin: 05/16/17 10:54 Dose: Not Given Gabapentin (Neurontin) 100 mg PO QPM [facility] Last Admin: 05/16/17 18:01 Dose: 100 mg Heparin Sodium (Porcine) (Heparin) 5,000 units SC Q12 [facility] Last Admin: 05/16/17 22:11 Dose: 5,000 units Hydromorphone HCl (Dilaudid) 0.5 mg IVP Q3 PRN PRN Reason: breakthrough pain Last Admin: 05/17/17 08:23 Dose: 0.5 mg Hydromorphone HCl (Dilaudid) 1 mg IVP Q3 PRN PRN Reason: Pain, severe (8-10) Last Admin: 05/17/17 05:35 Dose: 1 mg Ciprofloxacin (Cipro 200mg/100ml D5w) 100 mls @ 67 mls/hr IVPB Q12H [facility] Last Admin: 05/17/17 06:18 Dose: 67 mls/hr Linezolid (Zyvox 600mg/300ml D5w) 600 mg in 300 mls @ 200 mls/hr IVPB Q12 [facility] Last Admin: 05/16/17 21:55 Dose: 200 mls/hr Insulin Glargine (Lantus) 10 unit SC HS [facility] Last Admin: 05/16/17 21:54 Dose: 10 units Insulin Human Regular (Novolin R) 0 unit SC ACHS [facility] PRN Reason: Protocol Last Admin: 05/17/17 08:26 Dose: 1 unit Saccharomyces Boulardii (Florastor) 250 mg PO TID [facility] Last Admin: 05/16/17 18:01 Dose: 250 mg Vitamin B Complex/Vit C/Folic Acid (Nephro-Cony) 1 tab PO 0800 [facility] Last Admin: 05/17/17 08:26 Dose: 1 tab - Labs Labs: 05/17/17 04:00 05/17/17 04:04 PT 12.4 SECONDS (9.7-12.2) H 05/17/17 04:04 INR 1.1 05/17/17 04:04 APTT 34 SECONDS (21-34) 05/17/17 04:04 - Constitutional Appears: Non-toxic - Head Exam Head Exam: ATRAUMATIC, NORMAL INSPECTION, NORMOCEPHALIC - Eye Exam Eye Exam: EOMI - ENT Exam ENT Exam: Mucous Membranes Moist - Respiratory Exam Respiratory Exam: NORMAL BREATHING PATTERN. absent: Accessory Muscle Use, Respiratory Distress - Cardiovascular Exam Cardiovascular Exam: absent: JVD - Extremities Exam Additional comments: Left BKA: Straight leg brace in place. Dressing clean dry and intact. No drainage or bleeding noted. - Neurological Exam Neurological Exam: Alert, Awake, Oriented x3 - Skin Skin Exam: Dry, Intact, Warm Assessment and Plan - Assessment and Plan (Free Text) Assessment: 51yo F with Hx of subtotal colectomy w/ ileostomy and Right BKA; S/p Left BKA on 05/16. POD1 - f/u AM labs - pain management - Continue Abx as per ID - Physical Therapy: Transfer exercises - Leave dressing in place Further recs as per Dr. Eduardo Blanco PGY1 surgery pager: [phone]
--- NOTE | 2017-05-17 09:37 | CP.PCM.PN ---
Subjective - Date & Time of Evaluation Date of Evaluation: 05/16/17 Time of Evaluation: 16:36 - Subjective Subjective: pt went for BKA left leg post op pain noted family at bed side BP high will f/u Objective - Vital Signs/Intake and Output Vital Signs (last 24 hours): Temp Pulse Resp BP Pulse Ox 98.8 F 108 H 20 182/86 H 94 L 05/17/17 08:35 05/17/17 08:35 05/17/17 08:35 05/17/17 08:35 05/17/17 08:35 Intake and Output: 05/17/17 05/17/17 06:59 18:59 Intake Total 600 300 Balance 600 300 - Medications Medications: Current Medications Acetaminophen (Tylenol 325mg Tab) 650 mg PO Q8H [facility] Last Admin: 05/17/17 07:52 Dose: Not Given Acyclovir (Zovirax 5% Oint) 1 gm EXT Q3H [facility] Last Admin: 05/17/17 07:51 Dose: Not Given Amlodipine Besylate (Norvasc) 2.5 mg PO DAILY [facility] Last Admin: 05/16/17 10:54 Dose: Not Given Aspirin (Ecotrin) 81 mg PO DAILY [facility] Last Admin: 05/16/17 10:54 Dose: Not Given Calcium Acetate (Phoslo) 2,668 mg PO TIDCC [facility] Last Admin: 05/16/17 18:01 Dose: 2,668 mg Carvedilol (Coreg) 6.25 mg PO BID [facility] Last Admin: 05/16/17 18:01 Dose: 6.25 mg Clopidogrel Bisulfate (Plavix) 75 mg PO DAILY [facility] Last Admin: 05/16/17 10:54 Dose: Not Given Diphenhydramine HCl (Benadryl) 25 mg PO Q5H PRN PRN Reason: Itching / Pruritus Last Admin: 05/09/17 14:48 Dose: 25 mg Diphenhydramine HCl (Benadryl) 25 mg IVP Q4H PRN PRN Reason: Itching / Pruritus Last Admin: 05/17/17 09:27 Dose: 25 mg Epoetin Alec (Procrit) 10,000 unit IV MWF [facility] Last Admin: 05/15/17 18:04 Dose: 10,000 unit Famotidine (Pepcid) 20 mg PO DAILY [facility] Last Admin: 05/16/17 10:54 Dose: Not Given Gabapentin (Neurontin) 100 mg PO QPM [facility] Last Admin: 05/16/17 18:01 Dose: 100 mg Heparin Sodium (Porcine) (Heparin) 5,000 units SC Q12 [facility] Last Admin: 05/16/17 22:11 Dose: 5,000 units Hydromorphone HCl (Dilaudid) 0.5 mg IVP Q3 PRN PRN Reason: breakthrough pain Last Admin: 05/17/17 08:23 Dose: 0.5 mg Hydromorphone HCl (Dilaudid) 1 mg IVP Q3 PRN PRN Reason: Pain, severe (8-10) Last Admin: 05/17/17 09:27 Dose: 1 mg Ciprofloxacin (Cipro 200mg/100ml D5w) 100 mls @ 67 mls/hr IVPB Q12H [facility] Last Admin: 05/17/17 06:18 Dose: 67 mls/hr Linezolid (Zyvox 600mg/300ml D5w) 600 mg in 300 mls @ 200 mls/hr IVPB Q12 [facility] Last Admin: 05/16/17 21:55 Dose: 200 mls/hr Insulin Glargine (Lantus) 10 unit SC HS [facility] Last Admin: 05/16/17 21:54 Dose: 10 units Insulin Human Regular (Novolin R) 0 unit SC ACHS [facility] PRN Reason: Protocol Last Admin: 05/17/17 08:26 Dose: 1 unit Saccharomyces Boulardii (Florastor) 250 mg PO TID [facility] Last Admin: 05/16/17 18:01 Dose: 250 mg Vitamin B Complex/Vit C/Folic Acid (Nephro-Cony) 1 tab PO 0800 [facility] Last Admin: 05/17/17 08:26 Dose: 1 tab - Labs Labs: 05/17/17 04:00 05/17/17 04:04 PT 12.4 SECONDS (9.7-12.2) H 05/17/17 04:04 INR 1.1 05/17/17 04:04 APTT 34 SECONDS (21-34) 05/17/17 04:04 Assessment and Plan (1) End-stage renal disease on hemodialysis Status: Acute (2) Gangrene associated with type 2 diabetes mellitus Status: Acute (3) S/P BKA (below knee amputation) unilateral Status: Acute
--- NOTE | 2017-05-17 09:37 | CP.PCM.PN ---
Subjective - Date & Time of Evaluation Date of Evaluation: 05/17/17 Time of Evaluation: 09:37 - Subjective Subjective: pt is c/o increasing pain but sleepy seen by surgery pt is asking for pain meds all the time poorly eating wbc elevated likely surgical stress and notified to ID will get culture and added diflucon BP high and will continue the BP meds pain control and meds cautiously Objective - Vital Signs/Intake and Output Vital Signs (last 24 hours): Temp Pulse Resp BP Pulse Ox 98.8 F 108 H 20 182/86 H 94 L 05/17/17 08:35 05/17/17 08:35 05/17/17 08:35 05/17/17 08:35 05/17/17 08:35 Intake and Output: 05/17/17 05/17/17 06:59 18:59 Intake Total 600 300 Balance 600 300 - Medications Medications: Current Medications Acetaminophen (Tylenol 325mg Tab) 650 mg PO Q8H [facility] Last Admin: 05/17/17 07:52 Dose: Not Given Acyclovir (Zovirax 5% Oint) 1 gm EXT Q3H [facility] Last Admin: 05/17/17 07:51 Dose: Not Given Amlodipine Besylate (Norvasc) 2.5 mg PO DAILY [facility] Last Admin: 05/16/17 10:54 Dose: Not Given Aspirin (Ecotrin) 81 mg PO DAILY [facility] Last Admin: 05/16/17 10:54 Dose: Not Given Calcium Acetate (Phoslo) 2,668 mg PO TIDCC [facility] Last Admin: 05/16/17 18:01 Dose: 2,668 mg Carvedilol (Coreg) 6.25 mg PO BID [facility] Last Admin: 05/16/17 18:01 Dose: 6.25 mg Clopidogrel Bisulfate (Plavix) 75 mg PO DAILY [facility] Last Admin: 05/16/17 10:54 Dose: Not Given Diphenhydramine HCl (Benadryl) 25 mg PO Q5H PRN PRN Reason: Itching / Pruritus Last Admin: 05/09/17 14:48 Dose: 25 mg Diphenhydramine HCl (Benadryl) 25 mg IVP Q4H PRN PRN Reason: Itching / Pruritus Last Admin: 05/17/17 09:27 Dose: 25 mg Epoetin Alec (Procrit) 10,000 unit IV MWF [facility] Last Admin: 05/15/17 18:04 Dose: 10,000 unit Famotidine (Pepcid) 20 mg PO DAILY [facility] Last Admin: 05/16/17 10:54 Dose: Not Given Gabapentin (Neurontin) 100 mg PO QPM [facility] Last Admin: 05/16/17 18:01 Dose: 100 mg Heparin Sodium (Porcine) (Heparin) 5,000 units SC Q12 [facility] Last Admin: 05/16/17 22:11 Dose: 5,000 units Hydromorphone HCl (Dilaudid) 0.5 mg IVP Q3 PRN PRN Reason: breakthrough pain Last Admin: 05/17/17 08:23 Dose: 0.5 mg Hydromorphone HCl (Dilaudid) 1 mg IVP Q3 PRN PRN Reason: Pain, severe (8-10) Last Admin: 05/17/17 09:27 Dose: 1 mg Ciprofloxacin (Cipro 200mg/100ml D5w) 100 mls @ 67 mls/hr IVPB Q12H [facility] Last Admin: 05/17/17 06:18 Dose: 67 mls/hr Linezolid (Zyvox 600mg/300ml D5w) 600 mg in 300 mls @ 200 mls/hr IVPB Q12 [facility] Last Admin: 05/16/17 21:55 Dose: 200 mls/hr Insulin Glargine (Lantus) 10 unit SC HS [facility] Last Admin: 05/16/17 21:54 Dose: 10 units Insulin Human Regular (Novolin R) 0 unit SC ACHS [facility] PRN Reason: Protocol Last Admin: 05/17/17 08:26 Dose: 1 unit Saccharomyces Boulardii (Florastor) 250 mg PO TID [facility] Last Admin: 05/16/17 18:01 Dose: 250 mg Vitamin B Complex/Vit C/Folic Acid (Nephro-Cony) 1 tab PO 0800 [facility] Last Admin: 05/17/17 08:26 Dose: 1 tab - Labs Labs: 05/17/17 04:00 05/17/17 04:04 PT 12.4 SECONDS (9.7-12.2) H 05/17/17 04:04 INR 1.1 05/17/17 04:04 APTT 34 SECONDS (21-34) 05/17/17 04:04 Assessment and Plan (1) End-stage renal disease on hemodialysis Status: Acute (2) Gangrene associated with type 2 diabetes mellitus Status: Acute (3) S/P BKA (below knee amputation) unilateral Status: Acute
[2017-05-17] MEDS: Epoetin Alfa 10,000 unit/ml Dialysis IV SCH (10:03)
[2017-05-17] MEDS: Saccharomyces Boulardi 250 mg Cap PO SCH ×3 (10:28→18:55)
[2017-05-17] MEDS: Linezolid 600 mg in D5W 300 ml 600 MG/300 ML BAG IVPB SCH ×2 (10:31→22:34)
[2017-05-17] MEDS: Oxycodone/Acetaminophen 5/325 mg Tab PO PRN ×2 (13:20→18:55)
--- NOTE | 2017-05-17 13:37 | CP.PCM.PN ---
Subjective - Date & Time of Evaluation Date of Evaluation: 05/17/17 Time of Evaluation: 13:34 - Subjective Subjective: Seen at dialysis - in much pain post second BKA done 05/16 BP elevated; tolerating UF 1500ml Receiving pain meds- requesting more surgical notes noted Objective - Vital Signs/Intake and Output Vital Signs (last 24 hours): Temp Pulse Resp BP Pulse Ox 99.8 F H 110 H 20 166/73 H 96 05/17/17 09:50 05/17/17 09:50 05/17/17 09:50 05/17/17 12:50 05/17/17 09:50 Intake and Output: 05/17/17 05/17/17 06:59 18:59 Intake Total 600 300 Balance 600 300 - Medications Medications: Current Medications Acetaminophen (Tylenol 325mg Tab) 650 mg PO Q8H [facility] Last Admin: 05/17/17 07:52 Dose: Not Given Acyclovir (Zovirax 5% Oint) 1 gm EXT Q3H [facility] Last Admin: 05/17/17 07:51 Dose: Not Given Amlodipine Besylate (Norvasc) 2.5 mg PO DAILY [facility] Last Admin: 05/16/17 10:54 Dose: Not Given Aspirin (Ecotrin) 81 mg PO DAILY [facility] Last Admin: 05/16/17 10:54 Dose: Not Given Calcium Acetate (Phoslo) 2,668 mg PO TIDCC [facility] Last Admin: 05/16/17 18:01 Dose: 2,668 mg Carvedilol (Coreg) 6.25 mg PO BID [facility] Last Admin: 05/16/17 18:01 Dose: 6.25 mg Clopidogrel Bisulfate (Plavix) 75 mg PO DAILY [facility] Last Admin: 05/16/17 10:54 Dose: Not Given Diphenhydramine HCl (Benadryl) 25 mg PO Q5H PRN PRN Reason: Itching / Pruritus Last Admin: 05/09/17 14:48 Dose: 25 mg Diphenhydramine HCl (Benadryl) 25 mg IVP Q4H PRN PRN Reason: Itching / Pruritus Last Admin: 05/17/17 13:29 Dose: 25 mg Epoetin Alec (Procrit) 10,000 unit IV MWF [facility] Last Admin: 05/17/17 10:03 Dose: 10,000 unit Famotidine (Pepcid) 20 mg PO DAILY [facility] Last Admin: 05/16/17 10:54 Dose: Not Given Gabapentin (Neurontin) 100 mg PO QPM [facility] Last Admin: 05/16/17 18:01 Dose: 100 mg Heparin Sodium (Porcine) (Heparin) 5,000 units SC Q12 [facility] Last Admin: 05/16/17 22:11 Dose: 5,000 units Hydromorphone HCl (Dilaudid) 0.5 mg IVP Q3 PRN PRN Reason: breakthrough pain Last Admin: 05/17/17 12:37 Dose: 0.5 mg Ciprofloxacin (Cipro 200mg/100ml D5w) 100 mls @ 67 mls/hr IVPB Q12H [facility] Last Admin: 05/17/17 06:18 Dose: 67 mls/hr Linezolid (Zyvox 600mg/300ml D5w) 600 mg in 300 mls @ 200 mls/hr IVPB Q12 [facility] Last Admin: 05/16/17 21:55 Dose: 200 mls/hr Insulin Glargine (Lantus) 10 unit SC HS [facility] Last Admin: 05/16/17 21:54 Dose: 10 units Insulin Human Regular (Novolin R) 0 unit SC ACHS [facility] PRN Reason: Protocol Last Admin: 05/17/17 08:26 Dose: 1 unit Oxycodone/Acetaminophen (Percocet 5/325 Mg Tab) 1 tab PO Q6H PRN PRN Reason: Pain, moderate (4-7) Stop: 05/20/17 10:52 Last Admin: 05/17/17 13:20 Dose: 1 tab Saccharomyces Boulardii (Florastor) 250 mg PO TID [facility] Last Admin: 05/16/17 18:01 Dose: 250 mg Vitamin B Complex/Vit C/Folic Acid (Nephro-Cony) 1 tab PO 0800 [facility] Last Admin: 05/17/17 08:26 Dose: 1 tab - Labs Labs: 05/17/17 04:00 05/17/17 04:04 PT 12.4 SECONDS (9.7-12.2) H 05/17/17 04:04 INR 1.1 05/17/17 04:04 APTT 34 SECONDS (21-34) 05/17/17 04:04 - Constitutional Appears: In Acute Distress, Chronically Ill - Head Exam Head Exam: ATRAUMATIC, NORMAL INSPECTION - Eye Exam Eye Exam: EOMI, Normal appearance - Neck Exam Neck Exam: Normal Inspection. absent: Tenderness - Respiratory Exam Respiratory Exam: Clear to Ausculation Bilateral, NORMAL BREATHING PATTERN - Cardiovascular Exam Cardiovascular Exam: Tachycardia, +S1 - GI/Abdominal Exam GI & Abdominal Exam: Soft. absent: Tenderness - Extremities Exam Extremities Exam: Normal Inspection. absent: Tenderness - Neurological Exam Neurological Exam: Awake, CN II-XII Intact - Skin Skin Exam: Dry, Warm Assessment and Plan (1) Type 2 diabetes mellitus with diabetic nephropathy Status: Acute (2) End-stage renal disease on hemodialysis Status: Acute (3) Fluid overload Status: Acute (4) Type 2 diabetes mellitus with diabetic nephropathy Status: Acute (5) Gangrene associated with type 2 diabetes mellitus Status: Acute (6) S/P BKA (below knee amputation) bilateral Status: Acute - Assessment and Plan (Free Text) Plan: UF 1500ml dialysis MWF pain management increase BP meds
[2017-05-17] MEDS: (Lantus) Insulin Glargine, Recombinant SC SCH (22:00)
[2017-05-18] MEDS: Oxycodone/Acetaminophen 5/325 mg Tab PO PRN ×2 (00:59→09:26)
[2017-05-18] MEDS: DiphenhydrAMINE 50 mg/ml Inj IVP PRN ×4 (00:59→20:28)
[2017-05-18] MEDS: Acyclovir 5% Oint (15 gm) EXT SCH ×8 (02:50→23:47)
[2017-05-18] MEDS: HYDROmorphone 0.5 mg/0.5 ml ISec IVP PRN ×4 (06:05→20:20)
[2017-05-18] MEDS: Ciprofloxacin 200mg/100ml D5W 100 ML IVPB SCH ×3 (06:06→20:19)
[2017-05-18] MEDS: (Novolin R) Insulin Human Regular 100 units/ml vial SC SCH ×4 (08:25→21:28)
[2017-05-18 08:28] LABS: BASO # 0.2 K/uL (0.0-0.2); BASO % 1.1 % (0.0-2.0); EOS % 0.1 % (0.0-4.0); HEMATOCRIT 26.2 % (34.0-47.0); LYMPH # 1.6 K/uL (1.0-4.3); LYMPH % 8.1 % (20.0-40.0); MEAN CELL VOLUME 97.2 fL (81.0-99.0); MEAN CORPUSCULAR HEMOGLOBIN 31.5 pg (27.0-31.0); MEAN CORPUSCULAR HGB CONC 32.4 g/dL (33.0-37.0); MEAN PLATELET VOLUME 8.5 fL (7.2-11.7); MONO # 1.4 K/uL (0.0-0.8); MONO % 7.1 % (0.0-10.0); NRBC % 0.1 % (0.0-2.0); PLATELET COUNT 226 K/uL (130-400); RED CELL DISTRIBUTION WIDTH 19.7 % (11.5-14.5)
[2017-05-18 08:45] LABS: CALCIUM 8.5 mg/dl (8.6-10.4); POTASSIUM 3.9 mmol/L (3.6-5.2)
[2017-05-18] MEDS: Multivitamin Vitamin B Complex (Nephro-Vite) Tab PO SCH (09:00)
[2017-05-18] MEDS: Saccharomyces Boulardi 250 mg Cap PO SCH ×4 (09:05→18:45)
[2017-05-18] MEDS: Linezolid 600 mg in D5W 300 ml 600 MG/300 ML BAG IVPB SCH ×2 (09:06→22:19)
--- NOTE | 2017-05-18 09:27 | CP.PCM.PN ---
Subjective - Date & Time of Evaluation Date of Evaluation: 05/18/17 Time of Evaluation: 09:20 - Subjective Subjective: afebrile bp stable awake alert comfortable still has intermittent phantom leg pain No headache No chest pain Cough no hemoptysis no abd pain nausea vomiting diarrhea see above Objective - Vital Signs/Intake and Output Vital Signs (last 24 hours): Temp Pulse Resp BP Pulse Ox 98.7 F 102 H 20 142/78 98 05/18/17 08:19 05/18/17 08:19 05/18/17 08:19 05/18/17 09:06 05/18/17 08:19 - Medications Medications: Current Medications Acyclovir (Zovirax 5% Oint) 1 gm EXT Q3H [facility] Last Admin: 05/18/17 08:19 Dose: Not Given Amlodipine Besylate (Norvasc) 2.5 mg PO DAILY [facility] Last Admin: 05/18/17 09:06 Dose: 2.5 mg Aspirin (Ecotrin) 81 mg PO DAILY [facility] Last Admin: 05/18/17 09:16 Dose: 81 mg Calcium Acetate (Phoslo) 2,668 mg PO TIDCC [facility] Last Admin: 05/18/17 09:00 Dose: 2,668 mg Carvedilol (Coreg) 12.5 mg PO BID [facility] Last Admin: 05/18/17 09:06 Dose: 12.5 mg Clopidogrel Bisulfate (Plavix) 75 mg PO DAILY [facility] Last Admin: 05/18/17 09:05 Dose: 75 mg Diphenhydramine HCl (Benadryl) 25 mg IVP Q4H PRN PRN Reason: Itching / Pruritus Last Admin: 05/18/17 06:05 Dose: 25 mg Epoetin Alec (Procrit) 10,000 unit IV MWF [facility] Last Admin: 05/17/17 10:03 Dose: 10,000 unit Famotidine (Pepcid) 20 mg PO DAILY [facility] Last Admin: 05/18/17 09:05 Dose: 20 mg Gabapentin (Neurontin) 100 mg PO QPM [facility] Last Admin: 05/17/17 18:55 Dose: 100 mg Heparin Sodium (Porcine) (Heparin) 5,000 units SC Q12 [facility] Last Admin: 05/18/17 09:06 Dose: 5,000 units Hydromorphone HCl (Dilaudid) 0.5 mg IVP Q3 PRN PRN Reason: breakthrough pain Last Admin: 05/18/17 09:07 Dose: 0.5 mg Ciprofloxacin (Cipro 200mg/100ml D5w) 100 mls @ 67 mls/hr IVPB Q12H [facility] Last Admin: 05/18/17 06:06 Dose: 67 mls/hr Linezolid (Zyvox 600mg/300ml D5w) 600 mg in 300 mls @ 200 mls/hr IVPB Q12 [facility] Last Admin: 05/18/17 09:06 Dose: 200 mls/hr Insulin Glargine (Lantus) 10 unit SC HS [facility] Last Admin: 05/17/17 22:00 Dose: Not Given Insulin Human Regular (Novolin R) 0 unit SC ACHS [facility] PRN Reason: Protocol Last Admin: 05/18/17 08:25 Dose: 1 unit Oxycodone/Acetaminophen (Percocet 5/325 Mg Tab) 1 tab PO Q6H PRN PRN Reason: Pain, moderate (4-7) Stop: 05/20/17 10:52 Last Admin: 05/18/17 00:59 Dose: 1 tab Saccharomyces Boulardii (Florastor) 250 mg PO TID [facility] Last Admin: 05/18/17 09:05 Dose: 250 mg Vitamin B Complex/Vit C/Folic Acid (Nephro-Cony) 1 tab PO 0800 [facility] Last Admin: 05/18/17 09:00 Dose: 1 tab - Labs Labs: 05/18/17 08:21 05/18/17 08:21 PT 12.4 SECONDS (9.7-12.2) H 05/17/17 04:04 INR 1.1 05/17/17 04:04 APTT 34 SECONDS (21-34) 05/17/17 04:04 - Constitutional Appears: No Acute Distress - Eye Exam Eye Exam: absent: Conjunctival injection - ENT Exam ENT Exam: Mucous Membranes Moist - Respiratory Exam Respiratory Exam: Clear to Ausculation Bilateral, NORMAL BREATHING PATTERN - Cardiovascular Exam Cardiovascular Exam: REGULAR RHYTHM - GI/Abdominal Exam GI & Abdominal Exam: Soft. absent: Distended, Tenderness - Extremities Exam Additional comments: both legs in braces bilateral bka - Psychiatric Exam Psychiatric exam: absent: Anxious - Skin Skin Exam: Dry Assessment and Plan (1) S/P BKA (below knee amputation) bilateral Status: Acute (2) S/P BKA (below knee amputation) unilateral Status: Acute (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 (4) Diabetes mellitus Status: Acute (5) Fecal impaction Status: Acute (6) End-stage renal disease on hemodialysis Assessment & Plan: schedule dialysis 05/20 follow vascular recommendations Status: Acute
--- NOTE | 2017-05-18 09:53 | CP.PCM.PN ---
Subjective - Date & Time of Evaluation Date of Evaluation: 05/18/17 Time of Evaluation: 08:00 - Subjective Subjective: Surgery Progress note. Dr. Clark Pt seen and examined at bedside. No acute events overnight. Denies F/C. No CP/ SOB. No N/V/D. No abd pain. Still c/o left BKA site pain. No new complaints Objective - Vital Signs/Intake and Output Vital Signs (last 24 hours): Temp Pulse Resp BP Pulse Ox 98.7 F 102 H 20 142/78 98 05/18/17 08:19 05/18/17 08:19 05/18/17 08:19 05/18/17 09:06 05/18/17 08:19 - Medications Medications: Current Medications Acyclovir (Zovirax 5% Oint) 1 gm EXT Q3H [facility] Last Admin: 05/18/17 08:19 Dose: Not Given Amlodipine Besylate (Norvasc) 2.5 mg PO DAILY [facility] Last Admin: 05/18/17 09:06 Dose: 2.5 mg Aspirin (Ecotrin) 81 mg PO DAILY [facility] Last Admin: 05/18/17 09:16 Dose: 81 mg Calcium Acetate (Phoslo) 2,668 mg PO TIDCC [facility] Last Admin: 05/18/17 09:00 Dose: 2,668 mg Carvedilol (Coreg) 12.5 mg PO BID [facility] Last Admin: 05/18/17 09:06 Dose: 12.5 mg Clopidogrel Bisulfate (Plavix) 75 mg PO DAILY [facility] Last Admin: 05/18/17 09:05 Dose: 75 mg Diphenhydramine HCl (Benadryl) 25 mg IVP Q4H PRN PRN Reason: Itching / Pruritus Last Admin: 05/18/17 06:05 Dose: 25 mg Epoetin Alec (Procrit) 10,000 unit IV MWF [facility] Last Admin: 05/17/17 10:03 Dose: 10,000 unit Famotidine (Pepcid) 20 mg PO DAILY [facility] Last Admin: 05/18/17 09:05 Dose: 20 mg Gabapentin (Neurontin) 100 mg PO QPM [facility] Last Admin: 05/17/17 18:55 Dose: 100 mg Heparin Sodium (Porcine) (Heparin) 5,000 units SC Q12 [facility] Last Admin: 05/18/17 09:06 Dose: 5,000 units Hydromorphone HCl (Dilaudid) 1 mg IVP Q4 PRN PRN Reason: Pain, moderate (4-7) Ciprofloxacin (Cipro 200mg/100ml D5w) 100 mls @ 67 mls/hr IVPB Q12H [facility] Last Admin: 05/18/17 06:06 Dose: 67 mls/hr Linezolid (Zyvox 600mg/300ml D5w) 600 mg in 300 mls @ 200 mls/hr IVPB Q12 [facility] Last Admin: 05/18/17 09:06 Dose: 200 mls/hr Insulin Glargine (Lantus) 10 unit SC HS [facility] Last Admin: 05/17/17 22:00 Dose: Not Given Insulin Human Regular (Novolin R) 0 unit SC ACHS [facility] PRN Reason: Protocol Last Admin: 05/18/17 08:25 Dose: 1 unit Oxycodone/Acetaminophen (Percocet 5/325 Mg Tab) 1 tab PO Q6H PRN PRN Reason: Pain, moderate (4-7) Stop: 05/20/17 10:52 Last Admin: 05/18/17 09:26 Dose: 1 tab Saccharomyces Boulardii (Florastor) 250 mg PO TID [facility] Last Admin: 05/18/17 09:05 Dose: 250 mg Vitamin B Complex/Vit C/Folic Acid (Nephro-Cony) 1 tab PO 0800 [facility] Last Admin: 05/18/17 09:00 Dose: 1 tab - Labs Labs: 05/18/17 08:21 05/18/17 08:21 PT 12.4 SECONDS (9.7-12.2) H 05/17/17 04:04 INR 1.1 05/17/17 04:04 APTT 34 SECONDS (21-34) 05/17/17 04:04 - Constitutional Appears: Well, Non-toxic, No Acute Distress - Head Exam Head Exam: ATRAUMATIC, NORMAL INSPECTION, NORMOCEPHALIC - Eye Exam Eye Exam: EOMI - ENT Exam ENT Exam: Mucous Membranes Moist - Respiratory Exam Respiratory Exam: NORMAL BREATHING PATTERN. absent: Accessory Muscle Use, Respiratory Distress - Cardiovascular Exam Cardiovascular Exam: absent: JVD - GI/Abdominal Exam GI & Abdominal Exam: Soft. absent: Firm, Guarding, Rigid, Tenderness Additional comments: Ostomy in place. No leaks. - Extremities Exam Additional comments: Left BKA dressing in place. Clean, dry and intact. - Neurological Exam Neurological Exam: Alert, Awake, Oriented x3 - Psychiatric Exam Psychiatric exam: Normal Affect, Normal Mood - Skin Skin Exam: Dry, Intact, Normal Color, Warm Assessment and Plan - Assessment and Plan (Free Text) Assessment: 51yo F with Hx of subtotal colectomy w/ ileostomy and Right BKA; S/p Left BKA on 05/16. POD2 - adjust pain management - Continue Abx as per ID - Physical Therapy: Transfer exercises - Leave dressing in place Further recs as per Dr. Eduardo Blanco PGY1 surgery pager: [phone]
[2017-05-18 09:59] LABS: NEUTROPHIL 91 % (50-75); TOTAL CELLS COUNTED 100
[2017-05-18] MEDS ORDERED: Oxycodone/Acetaminophen 5/325 mg Tab PO PRN (10:15)
--- NOTE | 2017-05-18 10:51 | RAD ---
Chest x-ray single frontal view History: Infiltrate. Comparison: 05/10/2017 Findings: Patchy increased consolidative changes seen at the left lung base which may represent mild atelectasis versus infiltrate versus effusion. Clinical correlation. Mild venous congestion. Lines and tubes in stable position. Calcific tendinopathy of the right proximal humerus. Impression: Patchy increased consolidative changes seen at the left lung base which may represent mild atelectasis versus infiltrate versus effusion. Clinical correlation. Mild venous congestion.
--- NOTE | 2017-05-18 16:35 | CP.PCM.PN ---
Subjective - Date & Time of Evaluation Date of Evaluation: 05/18/17 Time of Evaluation: 16:33 - Subjective Subjective: pt is now sleeping and comfortable low grade fever this am stool loose noted in the colostomy no nausea poorly eating s/p left BKA day 2 elevated wbc noted now up to 20. on zyvax and cipro ID f/u on culture taken again. Objective - Vital Signs/Intake and Output Vital Signs (last 24 hours): Temp Pulse Resp BP Pulse Ox 99 F 99 H 18 152/79 H 94 L 05/18/17 16:02 05/18/17 16:02 05/18/17 16:02 05/18/17 16:02 05/18/17 16:02 Intake and Output: 05/18/17 05/18/17 06:59 18:59 Intake Total 600 Balance 600 clinically no new changes - Medications Medications: Current Medications Acyclovir (Zovirax 5% Oint) 1 gm EXT Q3H [facility] Last Admin: 05/18/17 15:18 Dose: Not Given Amlodipine Besylate (Norvasc) 2.5 mg PO DAILY [facility] Last Admin: 05/18/17 09:06 Dose: 2.5 mg Aspirin (Ecotrin) 81 mg PO DAILY [facility] Last Admin: 05/18/17 09:16 Dose: 81 mg Calcium Acetate (Phoslo) 2,668 mg PO TIDCC [facility] Last Admin: 05/18/17 11:14 Dose: 2,668 mg Carvedilol (Coreg) 12.5 mg PO BID [facility] Last Admin: 05/18/17 09:06 Dose: 12.5 mg Clopidogrel Bisulfate (Plavix) 75 mg PO DAILY [facility] Last Admin: 05/18/17 09:05 Dose: 75 mg Diphenhydramine HCl (Benadryl) 25 mg IVP Q4H PRN PRN Reason: Itching / Pruritus Last Admin: 05/18/17 11:15 Dose: 25 mg Epoetin Alec (Procrit) 10,000 unit IV MWF [facility] Last Admin: 05/17/17 10:03 Dose: 10,000 unit Famotidine (Pepcid) 20 mg PO DAILY [facility] Last Admin: 05/18/17 09:05 Dose: 20 mg Gabapentin (Neurontin) 100 mg PO QPM [facility] Last Admin: 05/17/17 18:55 Dose: 100 mg Heparin Sodium (Porcine) (Heparin) 5,000 units SC Q12 [facility] Last Admin: 05/18/17 09:06 Dose: 5,000 units Hydromorphone HCl (Dilaudid) 1 mg IVP Q4 PRN PRN Reason: Pain, moderate (4-7) Last Admin: 05/18/17 14:09 Dose: 1 mg Ciprofloxacin (Cipro 200mg/100ml D5w) 100 mls @ 67 mls/hr IVPB Q12H [facility] Last Admin: 05/18/17 06:06 Dose: 67 mls/hr Linezolid (Zyvox 600mg/300ml D5w) 600 mg in 300 mls @ 200 mls/hr IVPB Q12 [facility] Last Admin: 05/18/17 09:06 Dose: 200 mls/hr Insulin Glargine (Lantus) 10 unit SC HS [facility] Last Admin: 05/17/17 22:00 Dose: Not Given Insulin Human Regular (Novolin R) 0 unit SC ACHS [facility] PRN Reason: Protocol Last Admin: 05/18/17 16:23 Dose: Not Given Oxycodone/Acetaminophen (Percocet 5/325 Mg Tab) 1 tab PO Q6H PRN PRN Reason: Pain, MILD (1-3) Stop: 05/20/17 10:52 Saccharomyces Boulardii (Florastor) 250 mg PO TID [facility] Last Admin: 05/18/17 14:03 Dose: 250 mg Vitamin B Complex/Vit C/Folic Acid (Nephro-Cony) 1 tab PO 0800 [facility] Last Admin: 05/18/17 09:00 Dose: 1 tab - Labs Labs: 05/18/17 08:21 05/18/17 08:21 PT 12.4 SECONDS (9.7-12.2) H 05/17/17 04:04 INR 1.1 05/17/17 04:04 APTT 34 SECONDS (21-34) 05/17/17 04:04 Assessment and Plan (1) End-stage renal disease on hemodialysis Status: Acute (2) Gangrene associated with type 2 diabetes mellitus Status: Acute (3) S/P BKA (below knee amputation) unilateral Assessment & Plan: pt with ischemic legs gangrene bilateral s/p left bka high wbc f/u culture again ID f/u appreciated Status: Acute
[2017-05-18] MEDS: (Lantus) Insulin Glargine, Recombinant SC SCH (22:19)
[2017-05-19] MEDS: Acyclovir 5% Oint (15 gm) EXT SCH ×7 (03:15→20:37)
[2017-05-19] MEDS: HYDROmorphone 0.5 mg/0.5 ml ISec IVP PRN ×4 (04:02→19:05)
[2017-05-19] MEDS: DiphenhydrAMINE 50 mg/ml Inj IVP PRN ×4 (04:03→19:05)
[2017-05-19] MEDS ORDERED: HYDROmorphone 0.5 mg/0.5 ml ISec IVP STA (05:27)
[2017-05-19] MEDS: Ciprofloxacin 200mg/100ml D5W 100 ML IVPB SCH ×2 (06:00→19:05)
[2017-05-19 07:24] LABS: BASO # 0.1 K/uL (0.0-0.2); BASO % 0.3 % (0.0-2.0); EOS # 0.2 K/uL (0.0-0.7); HEMATOCRIT 25.6 % (34.0-47.0); LYMPH # 1.3 K/uL (1.0-4.3); LYMPH % 7.2 % (20.0-40.0); MEAN CORPUSCULAR HEMOGLOBIN 31.4 pg (27.0-31.0); MEAN CORPUSCULAR HGB CONC 32.1 g/dL (33.0-37.0); MEAN PLATELET VOLUME 8.5 fL (7.2-11.7); MONO % 5.6 % (0.0-10.0); PLATELET COUNT 223 K/uL (130-400); WHITE BLOOD COUNT 18.8 K/uL (4.8-10.8)
[2017-05-19] MEDS: (Novolin R) Insulin Human Regular 100 units/ml vial SC SCH ×4 (07:35→22:04)
--- NOTE | 2017-05-19 07:37 | CP.PCM.PN ---
Subjective - Date & Time of Evaluation Date of Evaluation: 05/19/17 Time of Evaluation: 05:00 - Subjective Subjective: Surgery Progress note. Dr. Clark Pt seen and examined at bedside. No acute events overnight. Patient request an extra dose of pain meds now. She states that she has been having some "Phantom limb pains" in LLE. No N/V/D. No F/C. Objective - Vital Signs/Intake and Output Vital Signs (last 24 hours): Temp Pulse Resp BP Pulse Ox 98.9 F 91 H 20 154/88 H 96 05/19/17 04:00 05/19/17 04:00 05/19/17 04:00 05/19/17 04:00 05/19/17 04:00 Intake and Output: 05/19/17 05/19/17 06:59 18:59 Intake Total 600 Balance 600 - Medications Medications: Current Medications Acyclovir (Zovirax 5% Oint) 1 gm EXT Q3H [facility] Last Admin: 05/19/17 05:00 Dose: Not Given Amlodipine Besylate (Norvasc) 2.5 mg PO DAILY [facility] Last Admin: 05/18/17 09:06 Dose: 2.5 mg Aspirin (Ecotrin) 81 mg PO DAILY [facility] Last Admin: 05/18/17 09:16 Dose: 81 mg Calcium Acetate (Phoslo) 2,668 mg PO TIDCC [facility] Last Admin: 05/18/17 18:44 Dose: Not Given Carvedilol (Coreg) 12.5 mg PO BID [facility] Last Admin: 05/18/17 18:43 Dose: Not Given Clopidogrel Bisulfate (Plavix) 75 mg PO DAILY [facility] Last Admin: 05/18/17 09:05 Dose: 75 mg Diphenhydramine HCl (Benadryl) 25 mg IVP Q4H PRN PRN Reason: Itching / Pruritus Last Admin: 05/19/17 04:03 Dose: 25 mg Epoetin Alec (Procrit) 10,000 unit IV MWF [facility] Last Admin: 05/17/17 10:03 Dose: 10,000 unit Famotidine (Pepcid) 20 mg PO DAILY [facility] Last Admin: 05/18/17 09:05 Dose: 20 mg Gabapentin (Neurontin) 100 mg PO QPM [facility] Last Admin: 05/18/17 18:45 Dose: Not Given Heparin Sodium (Porcine) (Heparin) 5,000 units SC Q12 [facility] Last Admin: 05/18/17 22:19 Dose: 5,000 units Hydromorphone HCl (Dilaudid) 1 mg IVP Q4 PRN PRN Reason: Pain, moderate (4-7) Last Admin: 05/19/17 04:02 Dose: 1 mg Ciprofloxacin (Cipro 200mg/100ml D5w) 100 mls @ 67 mls/hr IVPB Q12H [facility] Last Admin: 05/19/17 06:00 Dose: 67 mls/hr Linezolid (Zyvox 600mg/300ml D5w) 600 mg in 300 mls @ 200 mls/hr IVPB Q12 [facility] Last Admin: 05/18/17 22:19 Dose: 200 mls/hr Insulin Glargine (Lantus) 10 unit SC HS [facility] Last Admin: 05/18/17 22:19 Dose: 10 units Insulin Human Regular (Novolin R) 0 unit SC ACHS [facility] PRN Reason: Protocol Last Admin: 05/18/17 21:28 Dose: Not Given Oxycodone/Acetaminophen (Percocet 5/325 Mg Tab) 1 tab PO Q6H PRN PRN Reason: Pain, MILD (1-3) Stop: 05/20/17 10:52 Saccharomyces Boulardii (Florastor) 250 mg PO TID [facility] Last Admin: 05/18/17 18:45 Dose: Not Given Vitamin B Complex/Vit C/Folic Acid (Nephro-Cony) 1 tab PO 0800 [facility] Last Admin: 05/18/17 09:00 Dose: 1 tab - Labs Labs: 05/19/17 07:12 05/18/17 08:21 PT 12.4 SECONDS (9.7-12.2) H 05/17/17 04:04 INR 1.1 05/17/17 04:04 APTT 34 SECONDS (21-34) 05/17/17 04:04 - Constitutional Appears: Non-toxic, No Acute Distress - Head Exam Head Exam: ATRAUMATIC, NORMAL INSPECTION, NORMOCEPHALIC - Eye Exam Eye Exam: EOMI - ENT Exam ENT Exam: Mucous Membranes Moist - Respiratory Exam Respiratory Exam: NORMAL BREATHING PATTERN. absent: Accessory Muscle Use, Respiratory Distress - GI/Abdominal Exam GI & Abdominal Exam: Soft. absent: Distended, Firm, Guarding, Rigid, Tenderness Additional comments: Ostomy in place, no leaks - Extremities Exam Additional comments: LLE BKA dressing and straight leg brace in place. - Neurological Exam Neurological Exam: Alert, Awake, Oriented x3 - Psychiatric Exam Psychiatric exam: Depressed - Skin Skin Exam: Dry, Intact, Normal Color, Warm Assessment and Plan - Assessment and Plan (Free Text) Assessment: 51yo F with Hx of subtotal colectomy w/ ileostomy and Right BKA; S/p Left BKA on 05/16. POD3 - pain management - Continue Abx as per ID - Recommend Trapeze set up for patient in bed - Physical Therapy: Transfer exercises - Leave dressing in place Further recs as per Dr. Eduardo Blanco PGY1 surgery pager: [phone]
[2017-05-19 08:09] LABS: CALCIUM 8.8 mg/dl (8.6-10.4)
[2017-05-19 08:44] LABS: EOSINOPHIL 2 % (0-4); NEUTROPHIL 82 % (50-75); TOTAL CELLS COUNTED 100
[2017-05-19] MEDS: Multivitamin Vitamin B Complex (Nephro-Vite) Tab PO SCH (09:00)
[2017-05-19] MEDS: Saccharomyces Boulardi 250 mg Cap PO SCH ×3 (09:09→17:47)
[2017-05-19] MEDS: Linezolid 600 mg in D5W 300 ml 600 MG/300 ML BAG IVPB SCH ×2 (09:14→22:07)
--- NOTE | 2017-05-19 10:34 | CP.PCM.PN ---
Subjective - Date & Time of Evaluation Date of Evaluation: 05/19/17 Time of Evaluation: 10:33 - Subjective Subjective: Patient is awake and responding. Not in any distress. Her eating habit is very picky. She's not eating much. Low-grade fever noted today. WBC is improving slightly. Flapping tremor noted. No chest pain. No cough Patient was seen by surgery team this morning. Will continue to monitor. Possible hemodialysis in the morning. On antibiotic. This started the physical therapy reports the pain is slightly better Objective - Vital Signs/Intake and Output Vital Signs (last 24 hours): Temp Pulse Resp BP Pulse Ox 100.1 F H 101 H 20 158/80 H 96 05/19/17 09:01 05/19/17 09:01 05/19/17 09:01 05/19/17 09:13 05/19/17 09:01 Intake and Output: 05/19/17 05/19/17 06:59 18:59 Intake Total 600 Balance 600 - Medications Medications: Current Medications Acyclovir (Zovirax 5% Oint) 1 gm EXT Q3H [facility] Last Admin: 05/19/17 08:02 Dose: Not Given Amlodipine Besylate (Norvasc) 2.5 mg PO DAILY [facility] Last Admin: 05/19/17 09:09 Dose: 2.5 mg Aspirin (Ecotrin) 81 mg PO DAILY [facility] Last Admin: 05/19/17 09:14 Dose: 81 mg Calcium Acetate (Phoslo) 2,668 mg PO TIDCC [facility] Last Admin: 05/19/17 09:00 Dose: 2,668 mg Carvedilol (Coreg) 12.5 mg PO BID [facility] Last Admin: 05/19/17 09:13 Dose: 12.5 mg Clopidogrel Bisulfate (Plavix) 75 mg PO DAILY [facility] Last Admin: 05/19/17 09:09 Dose: 75 mg Diphenhydramine HCl (Benadryl) 25 mg IVP Q4H PRN PRN Reason: Itching / Pruritus Last Admin: 05/19/17 09:09 Dose: 25 mg Epoetin Alec (Procrit) 10,000 unit IV MWF [facility] Last Admin: 05/17/17 10:03 Dose: 10,000 unit Famotidine (Pepcid) 20 mg PO DAILY [facility] Last Admin: 05/19/17 09:09 Dose: 20 mg Gabapentin (Neurontin) 100 mg PO QPM [facility] Last Admin: 05/18/17 18:45 Dose: Not Given Heparin Sodium (Porcine) (Heparin) 5,000 units SC Q12 [facility] Last Admin: 05/19/17 09:10 Dose: 5,000 units Hydromorphone HCl (Dilaudid) 1 mg IVP Q4 PRN PRN Reason: Pain, moderate (4-7) Last Admin: 05/19/17 09:10 Dose: 1 mg Ciprofloxacin (Cipro 200mg/100ml D5w) 100 mls @ 67 mls/hr IVPB Q12H [facility] Last Admin: 05/19/17 06:00 Dose: 67 mls/hr Linezolid (Zyvox 600mg/300ml D5w) 600 mg in 300 mls @ 200 mls/hr IVPB Q12 [facility] Last Admin: 05/19/17 09:14 Dose: 200 mls/hr Insulin Glargine (Lantus) 10 unit SC HS [facility] Last Admin: 05/18/17 22:19 Dose: 10 units Insulin Human Regular (Novolin R) 0 unit SC ACHS [facility] PRN Reason: Protocol Last Admin: 05/19/17 07:35 Dose: Not Given Oxycodone/Acetaminophen (Percocet 5/325 Mg Tab) 1 tab PO Q6H PRN PRN Reason: Pain, MILD (1-3) Stop: 05/20/17 10:52 Saccharomyces Boulardii (Florastor) 250 mg PO TID [facility] Last Admin: 05/19/17 09:09 Dose: 250 mg Vitamin B Complex/Vit C/Folic Acid (Nephro-Cony) 1 tab PO 0800 [facility] Last Admin: 05/19/17 09:00 Dose: 1 tab - Labs Labs: 05/19/17 07:12 05/19/17 07:12 PT 12.4 SECONDS (9.7-12.2) H 05/17/17 04:04 INR 1.1 05/17/17 04:04 APTT 34 SECONDS (21-34) 05/17/17 04:04 Assessment and Plan (1) End-stage renal disease on hemodialysis Status: Acute (2) Gangrene associated with type 2 diabetes mellitus Status: Acute (3) S/P BKA (below knee amputation) unilateral Status: Acute
--- NOTE | 2017-05-19 15:17 | CP.PCM.PN ---
Subjective - Date & Time of Evaluation Date of Evaluation: 05/19/17 Time of Evaluation: 07:00 - Subjective Subjective: s/p left bka wbc trending down Objective - Vital Signs/Intake and Output Vital Signs (last 24 hours): Temp Pulse Resp BP Pulse Ox 100.1 F H 101 H 20 158/80 H 96 05/19/17 09:01 05/19/17 09:01 05/19/17 09:01 05/19/17 09:13 05/19/17 09:01 Intake and Output: 05/19/17 05/19/17 06:59 18:59 Intake Total 600 580 Balance 600 580 - Medications Medications: Current Medications Acyclovir (Zovirax 5% Oint) 1 gm EXT Q3H [facility] Last Admin: 05/19/17 15:09 Dose: Not Given Amlodipine Besylate (Norvasc) 2.5 mg PO DAILY [facility] Last Admin: 05/19/17 09:09 Dose: 2.5 mg Aspirin (Ecotrin) 81 mg PO DAILY [facility] Last Admin: 05/19/17 09:14 Dose: 81 mg Calcium Acetate (Phoslo) 2,668 mg PO TIDCC [facility] Last Admin: 05/19/17 12:42 Dose: 2,668 mg Carvedilol (Coreg) 12.5 mg PO BID [facility] Last Admin: 05/19/17 09:13 Dose: 12.5 mg Clopidogrel Bisulfate (Plavix) 75 mg PO DAILY [facility] Last Admin: 05/19/17 09:09 Dose: 75 mg Diphenhydramine HCl (Benadryl) 25 mg IVP Q4H PRN PRN Reason: Itching / Pruritus Last Admin: 05/19/17 15:03 Dose: 25 mg Epoetin Alec (Procrit) 10,000 unit IV MWF [facility] Last Admin: 05/17/17 10:03 Dose: 10,000 unit Famotidine (Pepcid) 20 mg PO DAILY [facility] Last Admin: 05/19/17 09:09 Dose: 20 mg Gabapentin (Neurontin) 100 mg PO QPM [facility] Last Admin: 05/18/17 18:45 Dose: Not Given Heparin Sodium (Porcine) (Heparin) 5,000 units SC Q12 [facility] Last Admin: 05/19/17 09:10 Dose: 5,000 units Hydromorphone HCl (Dilaudid) 1 mg IVP Q4 PRN PRN Reason: Pain, moderate (4-7) Last Admin: 05/19/17 15:04 Dose: 1 mg Ciprofloxacin (Cipro 200mg/100ml D5w) 100 mls @ 67 mls/hr IVPB Q12H [facility] Last Admin: 05/19/17 06:00 Dose: 67 mls/hr Linezolid (Zyvox 600mg/300ml D5w) 600 mg in 300 mls @ 200 mls/hr IVPB Q12 [facility] Last Admin: 05/19/17 09:14 Dose: 200 mls/hr Insulin Glargine (Lantus) 10 unit SC HS [facility] Last Admin: 05/18/17 22:19 Dose: 10 units Insulin Human Regular (Novolin R) 0 unit SC ACHS [facility] PRN Reason: Protocol Last Admin: 05/19/17 12:15 Dose: Not Given Oxycodone/Acetaminophen (Percocet 5/325 Mg Tab) 1 tab PO Q6H PRN PRN Reason: Pain, MILD (1-3) Stop: 05/20/17 10:52 Saccharomyces Boulardii (Florastor) 250 mg PO TID [facility] Last Admin: 05/19/17 13:31 Dose: 250 mg Vitamin B Complex/Vit C/Folic Acid (Nephro-Cony) 1 tab PO 0800 [facility] Last Admin: 05/19/17 09:00 Dose: 1 tab - Labs Labs: 05/19/17 07:12 05/19/17 07:12 PT 12.4 SECONDS (9.7-12.2) H 05/17/17 04:04 INR 1.1 05/17/17 04:04 APTT 34 SECONDS (21-34) 05/17/17 04:04 - Constitutional Appears: Non-toxic, Chronically Ill - Head Exam Head Exam: NORMOCEPHALIC - Eye Exam Eye Exam: PERRL - ENT Exam ENT Exam: Mucous Membranes Dry - Neck Exam Neck Exam: absent: Lymphadenopathy - Respiratory Exam Respiratory Exam: Decreased Breath Sounds - Cardiovascular Exam Cardiovascular Exam: REGULAR RHYTHM - GI/Abdominal Exam GI & Abdominal Exam: Distended Assessment and Plan (1) End-stage renal disease on hemodialysis Status: Acute (2) Gangrene associated with type 2 diabetes mellitus Status: Acute (3) S/P BKA (below knee amputation) unilateral Status: Acute (4) Type 2 diabetes mellitus with diabetic nephropathy Status: Acute
[2017-05-19] MEDS ORDERED: Oxycodone/Acetaminophen 5/325 mg Tab PO PRN (19:05)
[2017-05-19] MEDS: (Lantus) Insulin Glargine, Recombinant SC SCH (22:07)
[2017-05-20] MEDS: DiphenhydrAMINE 50 mg/ml Inj IVP PRN ×5 (00:45→21:50)
[2017-05-20] MEDS: Acyclovir 5% Oint (15 gm) EXT SCH ×9 (02:46→23:09)
[2017-05-20] MEDS: (Novolin R) Insulin Human Regular 100 units/ml vial SC SCH ×4 (08:55→21:19)
[2017-05-20] MEDS: Ciprofloxacin 200mg/100ml D5W 100 ML IVPB SCH ×2 (08:57→20:22)
[2017-05-20] MEDS: Multivitamin Vitamin B Complex (Nephro-Vite) Tab PO SCH (09:04)
[2017-05-20] MEDS: Linezolid 600 mg in D5W 300 ml 600 MG/300 ML BAG IVPB SCH ×2 (10:41→21:54)
[2017-05-20] MEDS: Saccharomyces Boulardi 250 mg Cap PO SCH ×3 (10:44→17:46)
--- NOTE | 2017-05-20 12:15 | CP.PCM.PN ---
Subjective - Date & Time of Evaluation Date of Evaluation: 05/20/17 Time of Evaluation: 12:12 - Subjective Subjective: Sleepy now only c/o intermittent pains for dialysis today BP controlled wounds healing as per surgery on ABs no n, v, f, chills, CPs, PIEDRA, diarrhea Objective - Vital Signs/Intake and Output Vital Signs (last 24 hours): Temp Pulse Resp BP Pulse Ox 98.5 F 85 20 159/72 H 96 05/20/17 08:05 05/20/17 10:27 05/20/17 08:05 05/20/17 10:57 05/20/17 10:27 Intake and Output: 05/20/17 05/20/17 06:59 18:59 Intake Total 700 Output Total 30 Balance 670 - Medications Medications: Current Medications Acyclovir (Zovirax 5% Oint) 1 gm EXT Q3H [facility] Last Admin: 05/20/17 09:08 Dose: 1 applic Amlodipine Besylate (Norvasc) 2.5 mg PO DAILY [facility] [place] Last Admin: 05/20/17 10:57 Dose: Not Given Aspirin (Ecotrin) 81 mg PO DAILY [facility] [place] Last Admin: 05/20/17 10:43 Dose: 81 mg Calcium Acetate (Phoslo) 2,668 mg PO TIDCC [facility] [place] Last Admin: 05/20/17 09:05 Dose: Not Given Carvedilol (Coreg) 12.5 mg PO BID [facility] [place] Last Admin: 05/20/17 10:57 Dose: Not Given Clopidogrel Bisulfate (Plavix) 75 mg PO DAILY [facility] [place] Last Admin: 05/20/17 10:44 Dose: 75 mg Diphenhydramine HCl (Benadryl) 25 mg IVP Q4H PRN PRN Reason: Itching / Pruritus Last Admin: 05/20/17 09:06 Dose: 25 mg Epoetin Alec (Procrit) 10,000 unit IV MWF [facility] [place] Last Admin: 05/17/17 10:03 Dose: 10,000 unit Famotidine (Pepcid) 20 mg PO DAILY [facility] [place] Last Admin: 05/20/17 10:44 Dose: 20 mg Gabapentin (Neurontin) 100 mg PO QPM [facility] [place] Last Admin: 05/19/17 17:47 Dose: 100 mg Heparin Sodium (Porcine) (Heparin) 5,000 units SC Q12 [facility] [place] Last Admin: 05/20/17 10:50 Dose: Not Given Hydromorphone HCl (Dilaudid) 1 mg IVP Q4 PRN PRN Reason: Pain, moderate (4-7) Last Admin: 05/19/17 19:05 Dose: 1 mg Hydromorphone HCl (Dilaudid) 4 mg PO Q4H PRN PRN Reason: Pain, severe (8-10) Last Admin: 05/20/17 09:04 Dose: 4 mg Ciprofloxacin (Cipro 200mg/100ml D5w) 100 mls @ 67 mls/hr IVPB Q12H [facility] [place] Last Admin: 05/20/17 08:57 Dose: 67 mls/hr Linezolid (Zyvox 600mg/300ml D5w) 600 mg in 300 mls @ 200 mls/hr IVPB Q12 [facility] [place] Last Admin: 05/20/17 10:41 Dose: 200 mls/hr Insulin Glargine (Lantus) 10 unit SC HS [facility] [place] Last Admin: 05/19/17 22:07 Dose: 10 units Insulin Human Regular (Novolin R) 0 unit SC ACHS [facility] [place] PRN Reason: Protocol Last Admin: 05/20/17 11:25 Dose: Not Given Oxycodone/Acetaminophen (Percocet 5/325 Mg Tab) 1 tab PO Q6H PRN PRN Reason: Pain, moderate (4-7) Stop: 05/22/17 19:06 Saccharomyces Boulardii (Florastor) 250 mg PO TID [facility] [place] Last Admin: 05/20/17 10:44 Dose: 250 mg Vitamin B Complex/Vit C/Folic Acid (Nephro-Cony) 1 tab PO 0800 [facility] [place] Last Admin: 05/20/17 09:04 Dose: 1 tab - Labs Labs: 05/19/17 07:12 05/19/17 07:12 PT 12.4 SECONDS (9.7-12.2) H 05/17/17 04:04 INR 1.1 05/17/17 04:04 APTT 34 SECONDS (21-34) 05/17/17 04:04 - Constitutional Appears: No Acute Distress, Chronically Ill - Head Exam Head Exam: ATRAUMATIC, NORMAL INSPECTION - Eye Exam Eye Exam: EOMI, Normal appearance - Neck Exam Neck Exam: Normal Inspection. absent: Tenderness - Respiratory Exam Respiratory Exam: Clear to Ausculation Bilateral, NORMAL BREATHING PATTERN - Cardiovascular Exam Cardiovascular Exam: REGULAR RHYTHM, +S1 - GI/Abdominal Exam GI & Abdominal Exam: Soft. absent: Tenderness - Extremities Exam Extremities Exam: Normal Inspection. absent: Tenderness - Neurological Exam Neurological Exam: Awake, CN II-XII Intact - Skin Skin Exam: Dry, Warm Assessment and Plan (1) Type 2 diabetes mellitus with diabetic nephropathy Status: Acute (2) End-stage renal disease on hemodialysis Status: Acute (3) Fluid overload Status: Acute (4) Type 2 diabetes mellitus with diabetic nephropathy Status: Acute (5) Gangrene associated with type 2 diabetes mellitus Status: Acute (6) S/P BKA (below knee amputation) bilateral Status: Acute - Assessment and Plan (Free Text) Plan: Continue wound care , IV ABs SAme BP meds- BP controlled Dialysis now then MWF Eventual rehab
[2017-05-20] MEDS: Epoetin Alfa 10,000 unit/ml Dialysis IV SCH (13:49)
--- NOTE | 2017-05-20 15:42 | CP.PCM.PCO ---
Physician Communication Note - Physician Communication Note Physician Communication Note: Cleared for Rehab from surgery standpoint
[2017-05-20] MEDS: (Lantus) Insulin Glargine, Recombinant SC SCH (21:51)
[2017-05-21] MEDS: DiphenhydrAMINE 50 mg/ml Inj IVP PRN ×3 (02:20→14:51)
[2017-05-21] MEDS: Acyclovir 5% Oint (15 gm) EXT SCH ×7 (03:16→21:35)
[2017-05-21] MEDS: (Novolin R) Insulin Human Regular 100 units/ml vial SC SCH ×4 (07:42→22:57)
[2017-05-21] MEDS: Ciprofloxacin 200mg/100ml D5W 100 ML IVPB SCH ×2 (08:00→18:00)
[2017-05-21] MEDS: Multivitamin Vitamin B Complex (Nephro-Vite) Tab PO SCH (09:00)
[2017-05-21] MEDS: Linezolid 600 mg in D5W 300 ml 600 MG/300 ML BAG IVPB SCH ×2 (09:02→21:33)
[2017-05-21] MEDS: Saccharomyces Boulardi 250 mg Cap PO SCH ×3 (09:04→17:54)
--- NOTE | 2017-05-21 10:34 | CP.PCM.PN ---
Subjective - Date & Time of Evaluation Date of Evaluation: 05/21/17 Time of Evaluation: 10:33 - Subjective Subjective: seen and examined s/p lt bka, wound healing - cleared by surgery no n/v/d/fevers/chills/sob/palpitations/chest pain hd yesterday Objective - Vital Signs/Intake and Output Vital Signs (last 24 hours): Temp Pulse Resp BP Pulse Ox 99 F 100 H 20 154/76 H 95 05/21/17 09:00 05/21/17 09:00 05/21/17 09:00 05/21/17 09:05 05/21/17 09:00 Intake and Output: 05/21/17 05/21/17 06:59 18:59 Intake Total 750 Balance 750 - Medications Medications: Current Medications Acyclovir (Zovirax 5% Oint) 1 gm EXT Q3H [facility] Last Admin: 05/21/17 08:11 Dose: Not Given Amlodipine Besylate (Norvasc) 2.5 mg PO DAILY [facility] Last Admin: 05/21/17 09:04 Dose: 2.5 mg Aspirin (Ecotrin) 81 mg PO DAILY [facility] Last Admin: 05/21/17 09:05 Dose: 81 mg Calcium Acetate (Phoslo) 2,668 mg PO TIDCC [facility] Last Admin: 05/21/17 09:00 Dose: 2,668 mg Carvedilol (Coreg) 12.5 mg PO BID [facility] Last Admin: 05/21/17 09:05 Dose: 12.5 mg Clopidogrel Bisulfate (Plavix) 75 mg PO DAILY [facility] Last Admin: 05/21/17 09:04 Dose: 75 mg Diphenhydramine HCl (Benadryl) 25 mg IVP Q4H PRN PRN Reason: Itching / Pruritus Last Admin: 05/21/17 09:04 Dose: 25 mg Epoetin Alec (Procrit) 10,000 unit IV MWF [facility] Last Admin: 05/20/17 13:49 Dose: 10,000 unit Famotidine (Pepcid) 20 mg PO DAILY [facility] Last Admin: 05/21/17 09:04 Dose: 20 mg Gabapentin (Neurontin) 100 mg PO QPM [facility] Last Admin: 05/20/17 17:46 Dose: 100 mg Heparin Sodium (Porcine) (Heparin) 5,000 units SC Q12 [facility] Last Admin: 05/21/17 09:06 Dose: Not Given Hydromorphone HCl (Dilaudid) 1 mg IVP Q4 PRN PRN Reason: Pain, moderate (4-7) Last Admin: 05/19/17 19:05 Dose: 1 mg Hydromorphone HCl (Dilaudid) 4 mg PO Q4H PRN PRN Reason: Pain, severe (8-10) Last Admin: 05/21/17 02:20 Dose: 4 mg Ciprofloxacin (Cipro 200mg/100ml D5w) 100 mls @ 67 mls/hr IVPB Q12H [facility] Last Admin: 05/21/17 08:00 Dose: 67 mls/hr Linezolid (Zyvox 600mg/300ml D5w) 600 mg in 300 mls @ 200 mls/hr IVPB Q12 [facility] Last Admin: 05/21/17 09:02 Dose: 200 mls/hr Insulin Glargine (Lantus) 10 unit SC HS [facility] Last Admin: 05/20/17 21:51 Dose: 10 units Insulin Human Regular (Novolin R) 0 unit SC ACHS [facility] PRN Reason: Protocol Last Admin: 05/21/17 07:42 Dose: Not Given Oxycodone/Acetaminophen (Percocet 5/325 Mg Tab) 1 tab PO Q6H PRN PRN Reason: Pain, moderate (4-7) Stop: 05/22/17 19:06 Saccharomyces Boulardii (Florastor) 250 mg PO TID [facility] Last Admin: 05/21/17 09:04 Dose: 250 mg Vitamin B Complex/Vit C/Folic Acid (Nephro-Cony) 1 tab PO 0800 [facility] Last Admin: 05/21/17 09:00 Dose: 1 tab - Labs Labs: 05/19/17 07:12 05/19/17 07:12 PT 12.4 SECONDS (9.7-12.2) H 05/17/17 04:04 INR 1.1 05/17/17 04:04 APTT 34 SECONDS (21-34) 05/17/17 04:04 - Constitutional Appears: Non-toxic, No Acute Distress, Older Than Stated Age, Chronically Ill - Head Exam Head Exam: NORMAL INSPECTION - Eye Exam Eye Exam: Normal appearance, PERRL Pupil Exam: PERRL - ENT Exam ENT Exam: Mucous Membranes Moist, Normal Exam - Neck Exam Neck Exam: Full ROM, Normal Inspection - Respiratory Exam Respiratory Exam: Decreased Breath Sounds, Clear to Ausculation Bilateral, NORMAL BREATHING PATTERN - Cardiovascular Exam Cardiovascular Exam: REGULAR RHYTHM, RRR - GI/Abdominal Exam GI & Abdominal Exam: Distended, Soft, Normal Bowel Sounds - Extremities Exam Additional comments: b/l BKA - Neurological Exam Neurological Exam: Alert, Awake, Oriented x3 - Skin Skin Exam: Normal Color, Warm Assessment and Plan (1) End-stage renal disease on hemodialysis Status: Acute (2) Gangrene associated with type 2 diabetes mellitus Status: Acute (3) S/P BKA (below knee amputation) unilateral Status: Acute (4) Type 2 diabetes mellitus with diabetic nephropathy Status: Acute (5) Anemia Status: Acute - Assessment and Plan (Free Text) Assessment: maintain hd mwf labs w/ hd tomorrow antibiotics rehab
[2017-05-21] MEDS: (Lantus) Insulin Glargine, Recombinant SC SCH (21:34)
--- NOTE | 2017-05-21 23:32 | CP.PCM.PN ---
Subjective - Date & Time of Evaluation Date of Evaluation: 05/21/17 Time of Evaluation: 23:31 - Subjective Subjective: He is currently sleepy. Patient is responding otherwise Comparing of pain in the left leg. Vital signs stable. Chest good air entry regular heart sound. It is related to hematemesis yesterday. We'll continue the current treatment. Currently on antibiotic. Cleared by the surgery for rehabilitation. Will plan for rehabilitation once bed is available Objective - Vital Signs/Intake and Output Vital Signs (last 24 hours): Temp Pulse Resp BP Pulse Ox 98.3 F 96 H 20 144/73 95 05/21/17 15:00 05/21/17 15:00 05/21/17 15:00 05/21/17 17:53 05/21/17 15:00 Intake and Output: 05/21/17 05/22/17 18:59 06:59 Intake Total 660 Balance 660 - Medications Medications: Current Medications Acyclovir (Zovirax 5% Oint) 1 gm EXT Q3H [facility] Last Admin: 05/21/17 21:35 Dose: 1 applic Amlodipine Besylate (Norvasc) 2.5 mg PO DAILY [facility] Last Admin: 05/21/17 09:04 Dose: 2.5 mg Aspirin (Ecotrin) 81 mg PO DAILY [facility] Last Admin: 05/21/17 09:05 Dose: 81 mg Calcium Acetate (Phoslo) 2,668 mg PO TIDCC [facility] Last Admin: 05/21/17 17:53 Dose: 2,668 mg Carvedilol (Coreg) 12.5 mg PO BID [facility] Last Admin: 05/21/17 17:53 Dose: 12.5 mg Clopidogrel Bisulfate (Plavix) 75 mg PO DAILY [facility] Last Admin: 05/21/17 09:04 Dose: 75 mg Diphenhydramine HCl (Benadryl) 25 mg IVP Q4H PRN PRN Reason: Itching / Pruritus Last Admin: 05/21/17 14:51 Dose: 25 mg Epoetin Alec (Procrit) 10,000 unit IV MWF [facility] Last Admin: 05/20/17 13:49 Dose: 10,000 unit Famotidine (Pepcid) 20 mg PO DAILY [facility] Last Admin: 05/21/17 09:04 Dose: 20 mg Gabapentin (Neurontin) 100 mg PO QPM [facility] Last Admin: 05/21/17 17:55 Dose: 100 mg Hydromorphone HCl (Dilaudid) 1 mg IVP Q4 PRN PRN Reason: Pain, moderate (4-7) Last Admin: 05/19/17 19:05 Dose: 1 mg Hydromorphone HCl (Dilaudid) 4 mg PO Q4H PRN PRN Reason: Pain, severe (8-10) Last Admin: 05/21/17 02:20 Dose: 4 mg Ciprofloxacin (Cipro 200mg/100ml D5w) 100 mls @ 67 mls/hr IVPB Q12H [facility] Last Admin: 05/21/17 18:00 Dose: 67 mls/hr Linezolid (Zyvox 600mg/300ml D5w) 600 mg in 300 mls @ 200 mls/hr IVPB Q12 [facility] Last Admin: 05/21/17 21:33 Dose: 200 mls/hr Insulin Glargine (Lantus) 10 unit SC HS [facility] Last Admin: 05/21/17 21:34 Dose: 10 units Insulin Human Regular (Novolin R) 0 unit SC ACHS [facility] PRN Reason: Protocol Last Admin: 05/21/17 22:57 Dose: Not Given Oxycodone/Acetaminophen (Percocet 5/325 Mg Tab) 1 tab PO Q6H PRN PRN Reason: Pain, moderate (4-7) Stop: 05/22/17 19:06 Saccharomyces Boulardii (Florastor) 250 mg PO TID [facility] Last Admin: 05/21/17 17:54 Dose: 250 mg Vitamin B Complex/Vit C/Folic Acid (Nephro-Cony) 1 tab PO 0800 [facility] Last Admin: 05/21/17 09:00 Dose: 1 tab - Labs Labs: 05/19/17 07:12 05/19/17 07:12 PT 12.4 SECONDS (9.7-12.2) H 05/17/17 04:04 INR 1.1 05/17/17 04:04 APTT 34 SECONDS (21-34) 05/17/17 04:04 Assessment and Plan (1) End-stage renal disease on hemodialysis Status: Acute (2) Gangrene associated with type 2 diabetes mellitus Status: Acute (3) S/P BKA (below knee amputation) unilateral Status: Acute
[2017-05-22] MEDS: DiphenhydrAMINE 50 mg/ml Inj IVP PRN ×4 (00:29→17:48)
[2017-05-22] MEDS: Acyclovir 5% Oint (15 gm) EXT SCH ×6 (04:01→17:54)
[2017-05-22 06:31] LABS: BASO # 0.1 K/uL (0.0-0.2); BASO % 0.5 % (0.0-2.0); EOS # 0.3 K/uL (0.0-0.7); EOS % 2.4 % (0.0-4.0); HEMATOCRIT 23.1 % (34.0-47.0); LYMPH # 1.3 K/uL (1.0-4.3); LYMPH % 9.4 % (20.0-40.0); MEAN CELL VOLUME 95.7 fL (81.0-99.0); MEAN CORPUSCULAR HGB CONC 33.5 g/dL (33.0-37.0); MONO % 7.7 % (0.0-10.0); PLATELET COUNT 284 K/uL (130-400); RED CELL DISTRIBUTION WIDTH 18.4 % (11.5-14.5); WHITE BLOOD COUNT 13.3 K/uL (4.8-10.8)
[2017-05-22] MEDS: Ciprofloxacin 200mg/100ml D5W 100 ML IVPB SCH (06:40)
[2017-05-22 06:46] LABS: BILIRUBIN,TOTAL 0.5 mg/dL (0.2-1.3); POTASSIUM 3.7 mmol/L (3.6-5.2); TOTAL PROTEIN 5.9 g/dL (6.3-8.3)
[2017-05-22 08:13] LABS: EOSINOPHIL 1 % (0-4); NEUTROPHIL 84 % (50-75); TOTAL CELLS COUNTED 100
[2017-05-22] MEDS: (Novolin R) Insulin Human Regular 100 units/ml vial SC SCH ×3 (08:32→17:45)
[2017-05-22] MEDS: Multivitamin Vitamin B Complex (Nephro-Vite) Tab PO SCH (08:32)
--- NOTE | 2017-05-22 09:19 | CP.PCM.PN ---
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 She is aware . discussed potential for removal at time of ileostomy closure. Objective - Vital Signs/Intake and Output Vital Signs (last 24 hours): Temp Pulse Resp BP Pulse Ox 98.9 F 94 H 18 170/74 H 98 05/22/17 08:18 05/22/17 08:18 05/22/17 08:18 05/22/17 08:18 05/22/17 08:18 Intake and Output: 05/22/17 05/22/17 06:59 18:59 Intake Total 300 Balance 300 - Medications Medications: Current Medications Acyclovir (Zovirax 5% Oint) 1 gm EXT Q3H [facility] Last Admin: 05/22/17 08:46 Dose: 1 applic Amlodipine Besylate (Norvasc) 2.5 mg PO DAILY [facility] Last Admin: 05/21/17 09:04 Dose: 2.5 mg Aspirin (Ecotrin) 81 mg PO DAILY [facility] Last Admin: 05/21/17 09:05 Dose: 81 mg Calcium Acetate (Phoslo) 2,668 mg PO TIDCC [facility] Last Admin: 05/22/17 08:32 Dose: 2,668 mg Carvedilol (Coreg) 12.5 mg PO BID [facility] Last Admin: 05/21/17 17:53 Dose: 12.5 mg Clopidogrel Bisulfate (Plavix) 75 mg PO DAILY [facility] Last Admin: 05/21/17 09:04 Dose: 75 mg Diphenhydramine HCl (Benadryl) 25 mg IVP Q4H PRN PRN Reason: Itching / Pruritus Last Admin: 05/22/17 06:48 Dose: 25 mg Epoetin Alec (Procrit) 10,000 unit IV MWF [facility] Last Admin: 05/20/17 13:49 Dose: 10,000 unit Famotidine (Pepcid) 20 mg PO DAILY [facility] Last Admin: 05/21/17 09:04 Dose: 20 mg Gabapentin (Neurontin) 100 mg PO QPM [facility] Last Admin: 05/21/17 17:55 Dose: 100 mg Hydromorphone HCl (Dilaudid) 1 mg IVP Q4 PRN PRN Reason: Pain, moderate (4-7) Last Admin: 05/19/17 19:05 Dose: 1 mg Hydromorphone HCl (Dilaudid) 4 mg PO Q4H PRN PRN Reason: Pain, severe (8-10) Last Admin: 05/21/17 02:20 Dose: 4 mg Ciprofloxacin (Cipro 200mg/100ml D5w) 100 mls @ 67 mls/hr IVPB Q12H [facility] Last Admin: 05/22/17 06:40 Dose: 67 mls/hr Linezolid (Zyvox 600mg/300ml D5w) 600 mg in 300 mls @ 200 mls/hr IVPB Q12 [facility] Last Admin: 05/21/17 21:33 Dose: 200 mls/hr Insulin Glargine (Lantus) 10 unit SC HS [facility] Last Admin: 05/21/17 21:34 Dose: 10 units Insulin Human Regular (Novolin R) 0 unit SC ACHS [facility] PRN Reason: Protocol Last Admin: 05/22/17 08:32 Dose: Not Given Oxycodone/Acetaminophen (Percocet 5/325 Mg Tab) 1 tab PO Q6H PRN PRN Reason: Pain, moderate (4-7) Stop: 05/22/17 19:06 Saccharomyces Boulardii (Florastor) 250 mg PO TID [facility] Last Admin: 05/21/17 17:54 Dose: 250 mg Vitamin B Complex/Vit C/Folic Acid (Nephro-Cony) 1 tab PO 0800 [facility] Last Admin: 05/22/17 08:32 Dose: 1 tab - Labs Labs: 05/22/17 06:26 05/22/17 06:26 PT 12.4 SECONDS (9.7-12.2) H 05/17/17 04:04 INR 1.1 05/17/17 04:04 APTT 34 SECONDS (21-34) 05/17/17 04:04
--- NOTE | 2017-05-22 10:44 | CP.PCM.PN ---
Subjective - Date & Time of Evaluation Date of Evaluation: 05/22/17 Time of Evaluation: 10:36 - Subjective Subjective: PT DISCUSSED DURING MULTIDISC ROUNDS. PT IS CLEARED FROM SURGICAL STANDPOINT FOR D/C TO [place] TODAY; I SPOKE WITH DR. SANTIAGO TO CONFIRM THIS. PER HIM PT WILL ALSO F/U OUTPATIENT FOR DISCUSSION AND PLAN TO REMOVE REMAINDER OF PD CATHETER (SEE HIS NOTE) HE DISCUSSED WITH THE PT. I ALSO DISCUSSED LABS AND ABX RECS WITH DR. MONTES AND SINCE PT HAS BEEN ON IV CIPRO AND ZYVOX SINCE 05/09 THERE IS NO FURTHER NEED FOR ABX UPON D/C. D.R ANTONIO MADE AWARE OF HGB TODAY BUT NO TRANSFUSION PER HIM AND PT IS CLEARED FOR D/C TO [facility]. LOCAL WOUND CARE TO ABD SURGICAL SITE TO RESUME AT [facility]. PT WILL BE FOLLOWED UNDER THE SERVICE OF DR. José Miguel EVERETT (HE IS AWARE AND IN AGREEMENT; HE FOLLOWED PT WHILE SHE WAS AT [facility]). I DISCUSSED THIS AT LENGTH WITH CM AND SW. PT TO BE D/C AFTER HD THIS AFTERNOON OR EVENING. ALL D/C PLAN DOCUMENTED ON PAPERWORK GOING TO [facility]. PICC TO BE REMOVED BEFORE D/C. NO FURTHER ORDERS. Objective - Vital Signs/Intake and Output Vital Signs (last 24 hours): Temp Pulse Resp BP Pulse Ox 98.9 F 94 H 18 170/74 H 98 05/22/17 08:18 05/22/17 08:18 05/22/17 08:18 05/22/17 08:18 05/22/17 08:18 Intake and Output: 05/22/17 05/22/17 06:59 18:59 Intake Total 300 Balance 300 - Medications Medications: Current Medications Acyclovir (Zovirax 5% Oint) 1 gm EXT Q3H [facility] Last Admin: 05/22/17 08:46 Dose: 1 applic Amlodipine Besylate (Norvasc) 2.5 mg PO DAILY [facility] Last Admin: 05/21/17 09:04 Dose: 2.5 mg Aspirin (Ecotrin) 81 mg PO DAILY [facility] Last Admin: 05/21/17 09:05 Dose: 81 mg Calcium Acetate (Phoslo) 2,668 mg PO TIDCC [facility] Last Admin: 05/22/17 08:32 Dose: 2,668 mg Carvedilol (Coreg) 12.5 mg PO BID [facility] Last Admin: 05/21/17 17:53 Dose: 12.5 mg Clopidogrel Bisulfate (Plavix) 75 mg PO DAILY [facility] Last Admin: 05/21/17 09:04 Dose: 75 mg Diphenhydramine HCl (Benadryl) 25 mg IVP Q4H PRN PRN Reason: Itching / Pruritus Last Admin: 05/22/17 06:48 Dose: 25 mg Epoetin Alec (Procrit) 10,000 unit IV MWF [facility] Last Admin: 05/20/17 13:49 Dose: 10,000 unit Famotidine (Pepcid) 20 mg PO DAILY [facility] Last Admin: 05/21/17 09:04 Dose: 20 mg Gabapentin (Neurontin) 100 mg PO QPM [facility] Last Admin: 05/21/17 17:55 Dose: 100 mg Hydromorphone HCl (Dilaudid) 1 mg IVP Q4 PRN PRN Reason: Pain, moderate (4-7) Last Admin: 05/19/17 19:05 Dose: 1 mg Hydromorphone HCl (Dilaudid) 4 mg PO Q4H PRN PRN Reason: Pain, severe (8-10) Last Admin: 05/21/17 02:20 Dose: 4 mg Ciprofloxacin (Cipro 200mg/100ml D5w) 100 mls @ 67 mls/hr IVPB Q12H [facility] Last Admin: 05/22/17 06:40 Dose: 67 mls/hr Linezolid (Zyvox 600mg/300ml D5w) 600 mg in 300 mls @ 200 mls/hr IVPB Q12 [facility] Last Admin: 05/21/17 21:33 Dose: 200 mls/hr Insulin Glargine (Lantus) 10 unit SC HS [facility] Last Admin: 05/21/17 21:34 Dose: 10 units Insulin Human Regular (Novolin R) 0 unit SC ACHS [facility] PRN Reason: Protocol Last Admin: 05/22/17 08:32 Dose: Not Given Oxycodone/Acetaminophen (Percocet 5/325 Mg Tab) 1 tab PO Q6H PRN PRN Reason: Pain, moderate (4-7) Stop: 05/22/17 19:06 Saccharomyces Boulardii (Florastor) 250 mg PO TID [facility] Last Admin: 05/21/17 17:54 Dose: 250 mg Vitamin B Complex/Vit C/Folic Acid (Nephro-Cony) 1 tab PO 0800 [facility] Last Admin: 05/22/17 08:32 Dose: 1 tab - Labs Labs: 05/22/17 06:26 05/22/17 06:26 PT 12.4 SECONDS (9.7-12.2) H 05/17/17 04:04 INR 1.1 05/17/17 04:04 APTT 34 SECONDS (21-34) 05/17/17 04:04
[2017-05-22] MEDS: Linezolid 600 mg in D5W 300 ml 600 MG/300 ML BAG IVPB SCH (10:46)
[2017-05-22] MEDS: Saccharomyces Boulardi 250 mg Cap PO SCH ×3 (10:48→17:49)
--- NOTE | 2017-05-22 10:51 | CP.PCM.PN ---
Subjective - Date & Time of Evaluation Date of Evaluation: 05/22/17 Time of Evaluation: 10:48 - Subjective Subjective: seen and examined notes reviewed for hd today rt chest permcath no fevers chills nausea vomiting diarrhea. c/o left foot pain Objective - Vital Signs/Intake and Output Vital Signs (last 24 hours): Temp Pulse Resp BP Pulse Ox 98.9 F 94 H 18 170/74 H 98 05/22/17 08:18 05/22/17 08:18 05/22/17 08:18 05/22/17 08:18 05/22/17 08:18 Intake and Output: 05/22/17 05/22/17 06:59 18:59 Intake Total 300 Balance 300 - Medications Medications: Current Medications Acyclovir (Zovirax 5% Oint) 1 gm EXT Q3H [facility] Last Admin: 05/22/17 08:46 Dose: 1 applic Amlodipine Besylate (Norvasc) 2.5 mg PO DAILY [facility] Last Admin: 05/21/17 09:04 Dose: 2.5 mg Aspirin (Ecotrin) 81 mg PO DAILY [facility] Last Admin: 05/21/17 09:05 Dose: 81 mg Calcium Acetate (Phoslo) 2,668 mg PO TIDCC [facility] Last Admin: 05/22/17 08:32 Dose: 2,668 mg Carvedilol (Coreg) 12.5 mg PO BID [facility] Last Admin: 05/21/17 17:53 Dose: 12.5 mg Clopidogrel Bisulfate (Plavix) 75 mg PO DAILY [facility] Last Admin: 05/21/17 09:04 Dose: 75 mg Diphenhydramine HCl (Benadryl) 25 mg IVP Q4H PRN PRN Reason: Itching / Pruritus Last Admin: 05/22/17 06:48 Dose: 25 mg Epoetin Alec (Procrit) 10,000 unit IV MWF [facility] Last Admin: 05/20/17 13:49 Dose: 10,000 unit Famotidine (Pepcid) 20 mg PO DAILY [facility] Last Admin: 05/21/17 09:04 Dose: 20 mg Gabapentin (Neurontin) 100 mg PO QPM [facility] Last Admin: 05/21/17 17:55 Dose: 100 mg Hydromorphone HCl (Dilaudid) 1 mg IVP Q4 PRN PRN Reason: Pain, moderate (4-7) Last Admin: 05/19/17 19:05 Dose: 1 mg Hydromorphone HCl (Dilaudid) 4 mg PO Q4H PRN PRN Reason: Pain, severe (8-10) Last Admin: 05/21/17 02:20 Dose: 4 mg Ciprofloxacin (Cipro 200mg/100ml D5w) 100 mls @ 67 mls/hr IVPB Q12H [facility] Last Admin: 05/22/17 06:40 Dose: 67 mls/hr Linezolid (Zyvox 600mg/300ml D5w) 600 mg in 300 mls @ 200 mls/hr IVPB Q12 [facility] Last Admin: 05/21/17 21:33 Dose: 200 mls/hr Insulin Glargine (Lantus) 10 unit SC HS [facility] Last Admin: 05/21/17 21:34 Dose: 10 units Insulin Human Regular (Novolin R) 0 unit SC ACHS [facility] PRN Reason: Protocol Last Admin: 05/22/17 08:32 Dose: Not Given Oxycodone/Acetaminophen (Percocet 5/325 Mg Tab) 1 tab PO Q6H PRN PRN Reason: Pain, moderate (4-7) Stop: 05/22/17 19:06 Saccharomyces Boulardii (Florastor) 250 mg PO TID [facility] Last Admin: 05/21/17 17:54 Dose: 250 mg Vitamin B Complex/Vit C/Folic Acid (Nephro-Cony) 1 tab PO 0800 [facility] Last Admin: 05/22/17 08:32 Dose: 1 tab - Labs Labs: 05/22/17 06:26 05/22/17 06:26 PT 12.4 SECONDS (9.7-12.2) H 05/17/17 04:04 INR 1.1 05/17/17 04:04 APTT 34 SECONDS (21-34) 05/17/17 04:04 - Constitutional Appears: Non-toxic, No Acute Distress, Chronically Ill - Head Exam Head Exam: NORMAL INSPECTION - Eye Exam Eye Exam: Normal appearance - ENT Exam ENT Exam: Mucous Membranes Moist, Normal Exam - Neck Exam Neck Exam: Normal Inspection - Respiratory Exam Respiratory Exam: Clear to Ausculation Bilateral, NORMAL BREATHING PATTERN - Cardiovascular Exam Cardiovascular Exam: REGULAR RHYTHM (rt chest permcath) - GI/Abdominal Exam GI & Abdominal Exam: Distended (ileostomy), Soft - Extremities Exam Extremities Exam: Normal Inspection (b/l bka. no edema) - Neurological Exam Neurological Exam: Alert, Awake, Oriented x3 - Psychiatric Exam Psychiatric exam: Flat Affect - Skin Skin Exam: Dry Assessment and Plan (1) End-stage renal disease on hemodialysis Status: Acute (2) Gangrene associated with type 2 diabetes mellitus Status: Acute (3) S/P BKA (below knee amputation) unilateral Status: Acute (4) Type 2 diabetes mellitus with diabetic nephropathy Status: Acute (5) Anemia Status: Acute - Assessment and Plan (Free Text) Assessment: maintain hd tts outpatient plan for rehab noted pain control liberalize potassium in diet
[2017-05-22 13:30] VITALS: O2SAT 100
[2017-05-22] MEDS: Epoetin Alfa 10,000 unit/ml Dialysis IV SCH (15:22)
[2017-05-22 17:08] VITALS: RESP 20
[2017-05-22 17:31] VITALS: BP 172/75; PULSE 98; TEMP 98.5
--- NOTE | 2017-05-23 08:12 | PQF GENQUE ---
This form is a permanent part of the medical record To Harman Valenzuela MD Patient was admitted hru the ER with Gangrene on the left foot, underwent BKA, PLease spefify the level of BKA amputation : HIGH/MID/ LOW Thank you, Clarification of your documentation is requested to better reflect the severity of illness and intensity of treatment of your patient. Indicators present [] Specify: [] [] Specify: [] [] Specify: [] [] Specify: [] Location in the medical record that reflects the above clinical findings: [] Treatment Provided: [] PHYSICIAN'S RESPONSE Based on your medical judgment of the clinical indicators outlined above please clarify the following: [] Practitioner response [] If unable to determine, please check the box, sign and date. Present On Admission (POA) Indicator: [] Present at the time of admission [] Not present at the time of admission [] Clinically Undetermined In responding to this query, please exercise your independent professional judgment. The fact that a question is asked does not imply that any particular answer is desired or expected. Thank you for your clarification on this documentation. If you have any questions please call:[ ] * Thank you, [ Seth Pollard, VANESSA ] audio production instructor MARIA DEL CARMEN
== END 2017-05-22 20:00 | DRG 113 ==
LOC: C.ER 14:38 → C.9E 21:22 → C.3T 05-02 20:20 → C.5S 05-02 21:06 → OBSVTOIN 05-03 13:11 → C.5S 05-10 01:40
PROVIDERS: ADMIT Internal Medicine; ATTEND Internal Medicine
PROC: 0Y6J0Z1 Detachment at Left Lower Leg, High, Open Approach (ICD-10-PCS; 2017-05-03)
PROC: 3E1M39Z Irrigation of Peritoneal Cavity using Dialysate, Percutaneous Approach (ICD-10-PCS; principal; 2017-05-14)
DX: I70.263 Atherosclerosis of native arteries of extremities with gangrene, bilateral legs (principal); E11.22 Type 2 diabetes mellitus with diabetic chronic kidney disease; E11.52 Type 2 diabetes mellitus with diabetic peripheral angiopathy with gangrene; I12.0 Hypertensive chronic kidney disease with stage 5 chronic kidney disease or end stage renal disease; N18.6 End stage renal disease; E87.70 Fluid overload, unspecified; Z99.2 Dependence on renal dialysis; E78.00 Pure hypercholesterolemia, unspecified; F17.210 Nicotine dependence, cigarettes, uncomplicated; Z79.4 Long term (current) use of insulin; Z93.3 Colostomy status; D64.9 Anemia, unspecified

== ENCOUNTER 2017-06-13 05:55 | Inpatient (IN) | payer OTHER ==
--- NOTE | 2017-06-13 06:00 | C.PDOC ---
History Of Present Illness Presents to ED with complaints of respiratory distress since onset of dialysis that began on Saturday. Denies chest pain, fever, nausea or vomiting. Patient received on arrival BIPAP and was administered zeppelin with nitroglycerin sprays for hypertension. Time Seen by Provider: 06/13/17 06:00 History Per: Patient History/Exam Limitations: no limitations Onset/Duration Of Symptoms: Hrs Current Symptoms Are (Timing): Still Present Initiating Event: Upper Respiratory Illness Current Respiratory Medications: See Home Med List Severity: Severe Pain Scale Rating Of: 8 Associated Symptoms: denies: Fever, Chills, Chest Pain Reports Recently: Seen In ED, Treated By A Physician, Hospitalized Recent travel outside of the [place]: No Additional History Per: Patient Past Medical History Reviewed: Historical Data, Nursing Documentation, Vital Signs Vital Signs: Last Vital Signs Temp 97.5 F L 06/13/17 06:03 Pulse 84 06/13/17 06:37 Resp 18 06/13/17 06:37 BP 188/80 H 06/13/17 06:37 Pulse Ox 100 06/13/17 06:37 - Medical History PMH: Anemia, Anxiety, Bronchitis, Diabetes, HTN, Hypercholesterolemia, End Stage Renal Disease (PD), Chronic Kidney Disease Surgical History: - [facility] Procedures BYPASS RIGHT FEMORAL ARTERY TO POPLIT ART, OPEN APPROACH (10/26/16) CREATE CUTANPERITON FIST (12/30/14) DETACHMENT AT LEFT LOWER LEG, HIGH, OPEN APPROACH (05/03/17) DETACHMENT AT RIGHT FOOT, PARTIAL 1ST RAY, OPEN APPROACH (02/04/17) DETACHMENT AT RIGHT FOOT, PARTIAL 2ND RAY, OPEN APPROACH (02/04/17) DETACHMENT AT RIGHT FOOT, PARTIAL 3RD RAY, OPEN APPROACH (02/04/17) DETACHMENT AT RIGHT FOOT, PARTIAL 4TH RAY, OPEN APPROACH (02/04/17) DETACHMENT AT RIGHT FOOT, PARTIAL 5TH RAY, OPEN APPROACH (02/04/17) DETACHMENT AT RIGHT KNEE REGION, OPEN APPROACH (02/04/17) DILATION OF R COM ILIAC ART WITH INTRALUM DEV, PERC APPROACH (10/26/16) EXCISION OF RIGHT FOOT SKIN, EXTERNAL APPROACH (02/04/17) EXCISION OF SIGMOID COLON, OPEN APPROACH (02/04/17) FLUOROSCOPY OF LEFT HEART USING LOW OSMOLAR CONTRAST (10/26/16) FLUOROSCOPY OF MULT COR ART USING L OSM CONTRAST (10/26/16) HEMODIALYSIS (11/06/14) INSERTION OF INFUSION DEV INTO R SUBCLAV VEIN, PERC APPROACH (02/04/17) INSERTION OF INFUSION DEV INTO SUP VENA CAVA, PERC APPROACH (02/04/17) IRRIGATION OF PERITON CAV USING DIALYSATE, PERC APPROACH (05/03/17) LAPAROSCOP LYSIS-PERITONEAL ADHES (12/30/14) MEASURE OF CARDIAC SAMPL & PRESSURE, L HEART, PERC APPROACH (10/26/16) PLAIN RADIOGRAPHY OF AORTA, BI LE ART USING L OSM CONTRAST (10/26/16) REMOVAL OF INFUSION DEVICE FROM GREAT VESSEL, PERC APPROACH (02/04/17) TRANSFUSE NONAUT RED BLOOD CELLS IN PERIPH VEIN, PERC (02/04/17) VASCULAR CATH IRRIGATION (01/14/15) VENOUS CATHETERIZATION FOR RENAL DIALYSIS (11/06/14) Family History: States: No Known Family Hx - Social History Hx Tobacco Use: Yes Hx Alcohol Use: No Hx Substance Use: No - Immunization History Hx Tetanus Toxoid Vaccination: Yes Hx Influenza Vaccination: No Hx Pneumococcal Vaccination: No Review Of Systems Constitutional: Negative for: Fever, Chills Eyes: Negative for: Redness Cardiovascular: Negative for: Chest Pain Respiratory: Positive for: Shortness of Breath, SOB with Excertion Gastrointestinal: Negative for: Nausea, Vomiting Musculoskeletal: Negative for: Back Pain Skin: Negative for: Rash Neurological: Negative for: Weakness, Numbness Psych: Negative for: Anxiety, Suicidal ideation Physical Exam - Physical Exam Appears: Non-toxic, In Acute Distress (Respiratory) Skin: Warm, Dry Head: Normacephalic Oral Mucosa: Moist Neck: Trachea Midline, Supple Chest: Symmetrical, No Tenderness, Other (right chest wall dialysis port) Cardiovascular: Rhythm Regular Respiratory: Rales (at bases), No Rhonchi, No Wheezing Gastrointestinal/Abdominal: Other (Right colostomy ) Extremity: No Tenderness, No Swelling, Other (Bilateral BKA; lrft BKA incision is clean and dry. ) Extremity: Bilateral: Normal Color And Temperature, Normal ROM Neurological/Psych: Oriented x3, Normal Speech, Normal Cognition, Other (No focal deficits) ED Course And Treatment ECG: Interpreted By Me, Viewed By Me ECG Rhythm: Sinus Rhythm (84), Nonspecific Changes Pulse Ox Interpretation: Normal (100) Progress Note: Ordered blood gas, EKG, CXR and blood work. Critical Care Time - Critical Care Note Total Time (in mins): 30 Documented critical care: time excludes all time spent performing seperately billable procedures. Disposition Counseled Patient/Family Regarding: Studies Performed, Diagnosis - Disposition Disposition Time: 06:00 Condition: UNKNOWN - Clinical Impression Clinical Impression: End stage renal disease, S/P BKA (below knee amputation) bilateral - Scribe Statement The provider has reviewed the documentation as recorded by the Scribe Clayton Mariscal All medical record entries made by the Scribe were at my direction and personally dictated by me. I have reviewed the chart and agree that the record accurately reflects my personal performance of the history, physical exam, medical decision making, and the department course for this patient. I have also personally directed, reviewed, and agree with the discharge instructions and disposition. Physician Patient Turnover Patient Signed Over To: Magaly Dodd Handoff Comments: pending labs and disposition
[2017-06-13 06:03] VITALS: BMI 26.9
[2017-06-13] MEDS ORDERED: Nitroglycerin 50mg in D5W 50 MG/250 ML BOTTLE IV SCH ×2 (06:20→07:02)
[2017-06-13 06:22] LABS: ABG ALLEN TEST POS; ARTERIAL BLOOD GAS HCO3 27.7 mmol/L (21-28); ARTERIAL BLOOD GAS O2 SAT 99.7 % (95-98); ARTERIAL BLOOD GAS PCO2 47 mm/Hg (35-45); ARTERIAL BLOOD GAS PO2 393 mm/Hg (80-100); ARTERIAL BLOOD GAS TCO2 30.5 mmol/L (22-28)
[2017-06-13] MEDS ORDERED: Morphine 4 MG/ML VIAL ONE (06:44)
[2017-06-13 06:45] LABS: BASO # 0.1 K/uL (0.0-0.2); BASO % 0.6 % (0.0-2.0); EOS # 0.2 K/uL (0.0-0.7); HEMOGLOBIN 8.7 g/dL (11.0-16.0); LYMPH # 1.3 K/uL (1.0-4.3); LYMPH % 7.8 % (20.0-40.0); MEAN CELL VOLUME 97.6 fL (81.0-99.0); MEAN CORPUSCULAR HEMOGLOBIN 30.5 pg (27.0-31.0); MEAN CORPUSCULAR HGB CONC 31.3 g/dL (33.0-37.0); MEAN PLATELET VOLUME 9.1 fL (7.2-11.7); MONO # 0.6 K/uL (0.0-0.8); MONO % 3.7 % (0.0-10.0); NEUT # 14.1 K/uL (1.8-7.0); NEUT % 86.9 % (50.0-75.0); PLATELET COUNT 324 K/uL (130-400); RBC 2.84 Mil/uL (3.80-5.20); RED CELL DISTRIBUTION WIDTH 18.8 % (11.5-14.5); WHITE BLOOD COUNT 16.2 K/uL (4.8-10.8)
[2017-06-13 06:48] LABS: INR 1.1; PROTHROMBIN TIME 11.9 SECONDS (9.7-12.2)
[2017-06-13 07:27] LABS: ANISOCYTOSIS MARKED; BANDS 1 % (0-2); EOSINOPHIL 3 % (0-4); LYMPHOCYTE 9 % (20-40); MONOCYTE 5 % (0-10); NEUTROPHIL 82 % (50-75); PLATELET ESTIMATE NORMAL (NORMAL); POIKILOCYTOSIS MODERATE; POLYCHROMIC SLIGHT; TOTAL CELLS COUNTED 100
--- NOTE | 2017-06-13 08:46 | RAD ---
Chest x-ray single frontal view History: Shortness of breath. Comparison: 03/31/2017 Findings: Right central venous catheter with tip extending into the right atrium. Mild to moderate venous congestion with patchy bibasilar airspace opacities and small bilateral pleural effusions. Mild cardiomegaly. Calcification at the aortic knob. Biapical pleural thickening with upper lobe granulomatous changes. Probable calcific tendinopathy of the right proximal humerus. Impression: Right central venous catheter with tip extending into the right atrium. Mild to moderate venous congestion with patchy bibasilar airspace opacities and small bilateral pleural effusions. Mild cardiomegaly.
--- NOTE | 2017-06-13 11:24 | CP.PCM.CON ---
History of Present Illness - History of Present Illness History of Present Illness: 51 y/o AA female presents with CHF sxs.- HAS BEEN DYSPNEIC FOR SEVERAL HOURS Due for dialysis today- on TTS schedule s/p recent bilateral BKAs for PAD PMH: DM1 ESRD HTN COPD PAD PSH: PD CATH/ REMOVAL S/P BILATERAL BKAs COLOSTOMY FOR SEVERE OBSTIPATION FROM PAIN MEDS Review of Systems - Review of Systems Systems not reviewed;Unavailable: Respiratory Distress Past Patient History - Infectious Disease Hx of Infectious Diseases: None - Past Medical History & Family History Past Medical History?: Yes Past Family History: Reviewed and not pertinent - Past Social History Smoking Status: Former Smoker Chewing Tobacco Use: No Cigar Use: No Alcohol: None Drugs: Denies Home Situation {Lives}: Assisted Domestic Violence: Negative - CARDIAC Hx Hypercholesterolemia: Yes Hx Hypertension: Yes - PULMONARY Hx Bronchitis: Yes - NEUROLOGICAL Hx Neurological Disorder: No - HEENT Hx HEENT Problems: No - RENAL Hx Chronic Kidney Disease: Yes - ENDOCRINE/METABOLIC Hx Endocrine Disorders: Yes Hx Diabetes Mellitus Type 2: Yes - HEMATOLOGICAL/ONCOLOGICAL Hx Anemia: Yes - INTEGUMENTARY Hx Dermatological Problems: Yes Hx Eczema: Yes - MUSCULOSKELETAL/RHEUMATOLOGICAL Hx Musculoskeletal Disorders: Yes Hx Falls: Yes Other/Comment: bka - GASTROINTESTINAL Hx Gastrointestinal Disorders: Yes Hx Colostomy: Yes - GENITOURINARY/GYNECOLOGICAL Hx Genitourinary Disorders: Yes (DX: RENAL FAILURE) - PSYCHIATRIC Hx Anxiety: Yes Hx Substance Use: No - SURGICAL HISTORY Hx Surgeries: Yes Hx Amputation: Yes (RBK) Hx Section: Yes Hx Eye Surgery: Yes (INSERT "GAS" BUBBLE BOTH EYES) Hx Tubal Ligation: Yes Hx Vascular Access Device: Yes (R SC HD cath) Other/Comment: I&D GROIN; 12/30/14 LAPAROSCOPIC INSERTION PERITONEAL DIALYSIS CATHETER. 01/14/15 REVISION DONE OF PERITIONEAL DIALYSIS CATH. - ANESTHESIA Hx Anesthesia: Yes Hx Anesthesia Reactions: No Hx Malignant Hyperthermia: No Meds Allergies/Adverse Reactions: Allergies Allergy/AdvReac Type Severity Reaction Status Date / Time shrimp Allergy Severe RASH Verified 06/13/17 06:10 Physical Exam - Constitutional Appears: In Acute Distress, Chronically Ill - Head Exam Head Exam: ATRAUMATIC, NORMAL INSPECTION - Eye Exam Eye Exam: EOMI, Normal appearance - Neck Exam Neck exam: Positive for: Normal Inspection. Negative for: Tenderness - Respiratory Exam Respiratory Exam: Rales, Respiratory Distress - Cardiovascular Exam Cardiovascular Exam: REGULAR RHYTHM, +S1 - GI/Abdominal Exam GI & Abdominal Exam: Normal Bowel Sounds - Extremities Exam Extremities exam: Positive for: tenderness - Expanded Lower Extremities Exam Left Lower Leg Exam: tenderness - Neurological Exam Neurological exam: Alert, CN II-XII Intact - Skin Skin Exam: Dry, Warm Results - Vital Signs Recent Vital Signs: Last Vital Signs Temp 97.5 F L 06/13/17 06:03 Pulse 82 06/13/17 10:39 Resp 16 06/13/17 10:39 BP 139/70 06/13/17 10:39 Pulse Ox 97 06/13/17 10:39 - Labs Result Diagrams: 06/13/17 06:36 Labs: Laboratory Results - last 24 hr 06/13/17 06/13/17 06/13/17 06:19 06:36 06:36 WBC 16.2 H RBC 2.84 L Hgb 8.7 L Hct 27.7 L MCV 97.6 MCH 30.5 MCHC 31.3 L RDW 18.8 H Plt Count 324 MPV 9.1 Neut % (Auto) 86.9 H Lymph % (Auto) 7.8 L [place] % (Auto) 3.7 Eos % (Auto) 1.0 Baso % (Auto) 0.6 Neut # 14.1 H Lymph # 1.3 [place] # 0.6 Eos # 0.2 Baso # 0.1 Neutrophils % (Manual) 82 H Band Neutrophils % 1 Lymphocytes % (Manual) 9 L Monocytes % (Manual) 5 Eosinophils % (Manual) 3 Platelet Estimate Normal Polychromasia Slight Poikilocytosis (manual Moderate Anisocytosis (manual) Marked Macrocytosis (manual) Slight PT 11.9 INR 1.1 APTT 33 Puncture Site Rr pCO2 47 H pO2 393 H HCO3 27.7 ABG pH 7.40 ABG Total CO2 30.5 H ABG O2 Saturation 99.7 H ABG Base Excess 3.5 H Phani Test Pos ABG Potassium 4.8 A-a O2 Difference 261.0 Respiratory Index 0.7 Sodium 138.0 Chloride 105.0 Glucose 169 H Lactate 0.6 L Vent Mode Bipap FiO2 100.0 Inspiratory BiPAP 10 Expiratory BiPAP 5 POC Glucose (mg/dL) Arterial Blood Potassium 4.8 06/13/17 08:09 WBC RBC Hgb Hct MCV MCH MCHC RDW Plt Count MPV Neut % (Auto) Lymph % (Auto) [place] % (Auto) Eos % (Auto) Baso % (Auto) Neut # Lymph # [place] # Eos # Baso # Neutrophils % (Manual) Band Neutrophils % Lymphocytes % (Manual) Monocytes % (Manual) Eosinophils % (Manual) Platelet Estimate Polychromasia Poikilocytosis (manual Anisocytosis (manual) Macrocytosis (manual) PT INR APTT Puncture Site pCO2 pO2 HCO3 ABG pH ABG Total CO2 ABG O2 Saturation ABG Base Excess Phani Test ABG Potassium A-a O2 Difference Respiratory Index Sodium Chloride Glucose Lactate Vent Mode FiO2 Inspiratory BiPAP Expiratory BiPAP POC Glucose (mg/dL) 144 H Arterial Blood Potassium Assessment & Plan (1) End stage renal disease Status: Acute (2) S/P BKA (below knee amputation) bilateral Status: Acute (3) CHF (congestive heart failure) Status: Acute (4) HTN (hypertension) Status: Acute (5) HTN (hypertension), benign Status: Acute (6) HTN (hypertension), benign Status: Acute - Assessment and Plan (Free Text) Plan: Immediate dialysis Monitor HTN, chemistries
[2017-06-13 12:07] LABS: ALB/GLOB RATIO 0.9 (1.0-2.1); ALBUMIN 3.4 g/dL (3.5-5.0)
--- NOTE | 2017-06-13 20:36 | CP.PCM.HP ---
Past Patient History - Infectious Disease Hx of Infectious Diseases: None - Past Medical History & Family History Past Medical History?: Yes Past Family History: Reviewed and not pertinent - Past Social History Smoking Status: Former Smoker Chewing Tobacco Use: No Cigar Use: No Alcohol: None Drugs: Denies Home Situation {Lives}: Correction Domestic Violence: Negative - CARDIAC Hx Hypercholesterolemia: Yes Hx Hypertension: Yes - PULMONARY Hx Bronchitis: Yes - NEUROLOGICAL Hx Neurological Disorder: No - HEENT Hx HEENT Problems: No - RENAL Hx Chronic Kidney Disease: Yes - ENDOCRINE/METABOLIC Hx Endocrine Disorders: Yes Hx Diabetes Mellitus Type 2: Yes - HEMATOLOGICAL/ONCOLOGICAL Hx Anemia: Yes - INTEGUMENTARY Hx Dermatological Problems: Yes Hx Eczema: Yes - MUSCULOSKELETAL/RHEUMATOLOGICAL Hx Musculoskeletal Disorders: Yes Hx Falls: Yes Other/Comment: bka - GASTROINTESTINAL Hx Gastrointestinal Disorders: Yes Hx Colostomy: Yes - GENITOURINARY/GYNECOLOGICAL Hx Genitourinary Disorders: Yes (DX: RENAL FAILURE) - PSYCHIATRIC Hx Anxiety: Yes Hx Substance Use: No - SURGICAL HISTORY Hx Surgeries: Yes Hx Amputation: Yes (RBK) Hx Section: Yes Hx Eye Surgery: Yes (INSERT "GAS" BUBBLE BOTH EYES) Hx Tubal Ligation: Yes Hx Vascular Access Device: Yes (R SC HD cath) Other/Comment: I&D GROIN; 12/30/14 LAPAROSCOPIC INSERTION PERITONEAL DIALYSIS CATHETER. 01/14/15 REVISION DONE OF PERITIONEAL DIALYSIS CATH. - ANESTHESIA Hx Anesthesia: Yes Hx Anesthesia Reactions: No Hx Malignant Hyperthermia: No Meds Allergies/Adverse Reactions: Allergies Allergy/AdvReac Type Severity Reaction Status Date / Time shrimp Allergy Severe RASH Verified 06/13/17 06:10 Results - Vital Signs Recent Vital Signs: Last Vital Signs Temp 98.4 F 06/13/17 18:29 Pulse 103 H 06/13/17 18:29 Resp 20 06/13/17 18:29 BP 189/78 H 06/13/17 18:29 Pulse Ox 98 06/13/17 18:29 - Labs Result Diagrams: 06/13/17 06:36 06/13/17 11:32 Labs: Laboratory Results - last 24 hr 06/13/17 06/13/17 06/13/17 06:19 06:36 06:36 WBC 16.2 H RBC 2.84 L Hgb 8.7 L Hct 27.7 L MCV 97.6 MCH 30.5 MCHC 31.3 L RDW 18.8 H Plt Count 324 MPV 9.1 Neut % (Auto) 86.9 H Lymph % (Auto) 7.8 L [place] % (Auto) 3.7 Eos % (Auto) 1.0 Baso % (Auto) 0.6 Neut # 14.1 H Lymph # 1.3 [place] # 0.6 Eos # 0.2 Baso # 0.1 Neutrophils % (Manual) 82 H Band Neutrophils % 1 Lymphocytes % (Manual) 9 L Monocytes % (Manual) 5 Eosinophils % (Manual) 3 Platelet Estimate Normal Polychromasia Slight Poikilocytosis (manual Moderate Anisocytosis (manual) Marked Macrocytosis (manual) Slight PT 11.9 INR 1.1 APTT 33 Puncture Site Rr pCO2 47 H pO2 393 H HCO3 27.7 ABG pH 7.40 ABG Total CO2 30.5 H ABG O2 Saturation 99.7 H ABG Base Excess 3.5 H Phani Test Pos ABG Potassium 4.8 A-a O2 Difference 261.0 Respiratory Index 0.7 Sodium 138.0 Chloride 105.0 Glucose 169 H Lactate 0.6 L Vent Mode Bipap FiO2 100.0 Inspiratory BiPAP 10 Expiratory BiPAP 5 Potassium Carbon Dioxide Anion Gap BUN Creatinine Est GFR ( Amer) Est GFR (Non-Af Amer) POC Glucose (mg/dL) Random Glucose Calcium Total Bilirubin AST ALT Alkaline Phosphatase Total Protein Albumin Globulin Albumin/Globulin Ratio Arterial Blood Potassium 4.8 06/13/17 06/13/17 08:09 11:32 WBC RBC Hgb Hct MCV MCH MCHC RDW Plt Count MPV Neut % (Auto) Lymph % (Auto) [place] % (Auto) Eos % (Auto) Baso % (Auto) Neut # Lymph # [place] # Eos # Baso # Neutrophils % (Manual) Band Neutrophils % Lymphocytes % (Manual) Monocytes % (Manual) Eosinophils % (Manual) Platelet Estimate Polychromasia Poikilocytosis (manual Anisocytosis (manual) Macrocytosis (manual) PT INR APTT Puncture Site pCO2 pO2 HCO3 ABG pH ABG Total CO2 ABG O2 Saturation ABG Base Excess Phani Test ABG Potassium A-a O2 Difference Respiratory Index Sodium 133 Chloride 97 L Glucose Lactate Vent Mode FiO2 Inspiratory BiPAP Expiratory BiPAP Potassium 6.0 H Carbon Dioxide 28 Anion Gap 13 BUN 35 H Creatinine 6.5 H Est GFR ( Amer) 8 Est GFR (Non-Af Amer) 7 POC Glucose (mg/dL) 144 H Random Glucose 142 H Calcium 9.0 Total Bilirubin 0.5 AST 46 H D ALT 40 Alkaline Phosphatase 191 H Total Protein 7.1 Albumin 3.4 L Globulin 3.7 Albumin/Globulin Ratio 0.9 L Arterial Blood Potassium
[2017-06-13] MEDS ORDERED: Oxycodone/Acetaminophen 5/325 mg Tab PO PRN (23:45)
[2017-06-14 06:26] LABS: BASO # 0.1 K/uL (0.0-0.2); BASO % 0.8 % (0.0-2.0); EOS # 0.1 K/uL (0.0-0.7); EOS % 1.5 % (0.0-4.0); HEMOGLOBIN 8.7 g/dL (11.0-16.0); LYMPH # 1.5 K/uL (1.0-4.3); LYMPH % 19.9 % (20.0-40.0); MEAN CELL VOLUME 97.8 fL (81.0-99.0); MEAN CORPUSCULAR HEMOGLOBIN 30.9 pg (27.0-31.0); MEAN CORPUSCULAR HGB CONC 31.6 g/dL (33.0-37.0); MEAN PLATELET VOLUME 8.8 fL (7.2-11.7); MONO # 0.6 K/uL (0.0-0.8); MONO % 7.6 % (0.0-10.0); NEUT # 5.4 K/uL (1.8-7.0); NEUT % 70.2 % (50.0-75.0); RBC 2.83 Mil/uL (3.80-5.20); RED CELL DISTRIBUTION WIDTH 18.9 % (11.5-14.5); WHITE BLOOD COUNT 7.7 K/uL (4.8-10.8)
[2017-06-14 06:48] LABS: CALCIUM 8.9 mg/dl (8.6-10.4)
[2017-06-14] MEDS: (Novolin R) Insulin Human Regular 100 units/ml vial SC SCH ×4 (07:36→21:31)
[2017-06-14] MEDS: Multivitamin Vitamin B Complex (Nephro-Vite) Tab PO SCH (09:30)
--- NOTE | 2017-06-14 14:08 | CP.PCM.PN ---
Subjective - Date & Time of Evaluation Date of Evaluation: 06/14/17 Time of Evaluation: 14:05 - Subjective Subjective: Stable dialysis 06/13- UF 3500ml BP still elevated Eating better, not dyspneic No n, v, fevers, chills, HAs Stumps well healed Objective - Vital Signs/Intake and Output Vital Signs (last 24 hours): Temp Pulse Resp BP Pulse Ox 98.2 F 89 20 185/78 H 95 06/14/17 07:20 06/14/17 07:20 06/14/17 07:20 06/14/17 09:31 06/14/17 07:20 Intake and Output: 06/14/17 06/14/17 06:59 18:59 Intake Total 100 Balance 100 - Medications Medications: Current Medications Acetaminophen (Tylenol 325mg Tab) 650 mg PO Q8H PRN PRN Reason: Pain, Mild (1-3) or Temp>100.4 Amlodipine Besylate (Norvasc) 5 mg PO DAILY [facility] Aspirin (Ecotrin) 81 mg PO DAILY [facility] Last Admin: 06/14/17 09:31 Dose: 81 mg Carvedilol (Coreg) 12.5 mg PO BID [facility] Last Admin: 06/14/17 09:31 Dose: 12.5 mg Clopidogrel Bisulfate (Plavix) 75 mg PO DAILY [facility] Last Admin: 06/14/17 09:35 Dose: 75 mg Famotidine (Pepcid) 20 mg PO DAILY [facility] Last Admin: 06/14/17 09:30 Dose: 20 mg Gabapentin (Neurontin) 100 mg PO QPM [facility] Heparin Sodium (Porcine) (Heparin) 5,000 units SC Q8 [facility] Last Admin: 06/14/17 06:06 Dose: 5,000 units Insulin Glargine (Lantus) 10 unit SC HS [facility] Insulin Human Regular (Novolin R) 0 unit SC ACHS [facility] PRN Reason: Protocol Last Admin: 06/14/17 12:24 Dose: 2 unit Morphine Sulfate (Morphine) 2 mg IVP Q6 [facility] Last Admin: 06/14/17 12:11 Dose: Not Given Oxycodone/Acetaminophen (Percocet 5/325 Mg Tab) 1 tab PO Q6H PRN PRN Reason: Pain, moderate (4-7) Stop: 06/16/17 23:46 Oxycodone/Acetaminophen (Percocet 5/325 Mg Tab) 2 tab PO Q6H PRN PRN Reason: Pain, severe (8-10) Stop: 06/16/17 23:46 Last Admin: 06/14/17 12:28 Dose: 2 tab Saccharomyces Boulardii (Florastor) 250 mg PO HS [facility] Vitamin B Complex/Vit C/Folic Acid (Nephro-Cony) 1 tab PO DAILY [facility] Last Admin: 06/14/17 09:30 Dose: 1 tab - Labs Labs: 06/14/17 06:20 06/14/17 06:20 PT 11.9 SECONDS (9.7-12.2) 06/13/17 06:36 INR 1.1 06/13/17 06:36 APTT 33 SECONDS (21-34) 06/13/17 06:36 - Constitutional Appears: No Acute Distress, Chronically Ill - Head Exam Head Exam: ATRAUMATIC, NORMAL INSPECTION - Eye Exam Eye Exam: EOMI, Normal appearance - Neck Exam Neck Exam: Normal Inspection. absent: Tenderness - Respiratory Exam Respiratory Exam: Clear to Ausculation Bilateral, NORMAL BREATHING PATTERN - Cardiovascular Exam Cardiovascular Exam: REGULAR RHYTHM, +S1 - GI/Abdominal Exam GI & Abdominal Exam: Soft. absent: Tenderness - Neurological Exam Neurological Exam: Alert, CN II-XII Intact - Skin Skin Exam: Dry, Warm Assessment and Plan (1) End stage renal disease Status: Acute (2) S/P BKA (below knee amputation) bilateral Status: Acute (3) CHF (congestive heart failure) Status: Acute (4) HTN (hypertension) Status: Acute (5) HTN (hypertension), benign Status: Acute - Assessment and Plan (Free Text) Plan: Repeat dialysis 06/15 Increase HTN meds ESAs; check iron stores Will need outpt dialysis with greater UF goal upon discharge
--- NOTE | 2017-06-14 15:59 | CP.PCM.PN ---
Subjective - Date & Time of Evaluation Date of Evaluation: 06/14/17 Time of Evaluation: 15:58 Objective - Vital Signs/Intake and Output Vital Signs (last 24 hours): Temp Pulse Resp BP Pulse Ox 98.2 F 89 20 185/78 H 95 06/14/17 07:20 06/14/17 07:20 06/14/17 07:20 06/14/17 09:31 06/14/17 07:20 Intake and Output: 06/14/17 06/14/17 06:59 18:59 Intake Total 100 Balance 100 - Medications Medications: Current Medications Acetaminophen (Tylenol 325mg Tab) 650 mg PO Q8H PRN PRN Reason: Pain, Mild (1-3) or Temp>100.4 Amlodipine Besylate (Norvasc) 5 mg PO DAILY [facility] Last Admin: 06/14/17 14:50 Dose: 5 mg Aspirin (Ecotrin) 81 mg PO DAILY [facility] Last Admin: 06/14/17 09:31 Dose: 81 mg Carvedilol (Coreg) 12.5 mg PO BID [facility] Last Admin: 06/14/17 09:31 Dose: 12.5 mg Clopidogrel Bisulfate (Plavix) 75 mg PO DAILY [facility] Last Admin: 06/14/17 09:35 Dose: 75 mg Epoetin Alec (Procrit) 10,000 unit IV TTS [facility] Famotidine (Pepcid) 20 mg PO DAILY [facility] Last Admin: 06/14/17 09:30 Dose: 20 mg Gabapentin (Neurontin) 100 mg PO QPM [facility] Heparin Sodium (Porcine) (Heparin) 5,000 units SC Q8 [facility] Last Admin: 06/14/17 14:52 Dose: 5,000 units Insulin Glargine (Lantus) 10 unit SC HS [facility] Insulin Human Regular (Novolin R) 0 unit SC ACHS [facility] PRN Reason: Protocol Last Admin: 06/14/17 12:24 Dose: 2 unit Morphine Sulfate (Morphine) 2 mg IVP Q6 [facility] Last Admin: 06/14/17 12:11 Dose: Not Given Oxycodone/Acetaminophen (Percocet 5/325 Mg Tab) 1 tab PO Q6H PRN PRN Reason: Pain, moderate (4-7) Stop: 06/16/17 23:46 Oxycodone/Acetaminophen (Percocet 5/325 Mg Tab) 2 tab PO Q6H PRN PRN Reason: Pain, severe (8-10) Stop: 06/16/17 23:46 Last Admin: 06/14/17 12:28 Dose: 2 tab Saccharomyces Boulardii (Florastor) 250 mg PO HS [facility] Vitamin B Complex/Vit C/Folic Acid (Nephro-Cony) 1 tab PO DAILY [facility] Last Admin: 06/14/17 09:30 Dose: 1 tab - Labs Labs: 06/14/17 06:20 06/14/17 06:20 PT 11.9 SECONDS (9.7-12.2) 06/13/17 06:36 INR 1.1 06/13/17 06:36 APTT 33 SECONDS (21-34) 06/13/17 06:36
[2017-06-14] MEDS ORDERED: DiphenhydrAMINE 50 mg/ml Inj IVP STA (19:15)
[2017-06-14] MEDS: Oxycodone/Acetaminophen 5/325 mg Tab PO PRN (19:27)
[2017-06-14] MEDS ORDERED: Oxycodone/Acetaminophen 5/325 mg Tab PO ONE (20:00)
[2017-06-14] MEDS: Saccharomyces Boulardi 250 mg Cap PO SCH (21:23)
[2017-06-14] MEDS: (Lantus) Insulin Glargine, Recombinant SC SCH (21:24)
[2017-06-15] MEDS: Oxycodone/Acetaminophen 5/325 mg Tab PO PRN ×3 (01:51→17:02)
[2017-06-15] MEDS: DiphenhydrAMINE 50 mg/ml Inj IVP PRN ×2 (01:56→14:14)
[2017-06-15 07:10] LABS: ALBUMIN 3.5 g/dL (3.5-5.0); CALCIUM 9.5 mg/dl (8.6-10.4)
[2017-06-15 07:12] LABS: IRON 66 ug/dL (37-170)
[2017-06-15 07:21] LABS: TOTAL IRON BINDING CAPACITY 213 ug/dL (250-450)
[2017-06-15] MEDS: (Novolin R) Insulin Human Regular 100 units/ml vial SC SCH ×4 (07:30→21:34)
[2017-06-15 07:57] LABS: % IRON SATURATION 31 (20-55)
[2017-06-15] MEDS ORDERED: EPOETIN ALFA 10,000 UNIT/ML ML IV SCH (10:00)
[2017-06-15] MEDS: Epoetin Alfa 10,000 unit/ml Dialysis IV SCH (11:51)
--- NOTE | 2017-06-15 11:54 | CP.PCM.PN ---
Subjective - Date & Time of Evaluation Date of Evaluation: 06/15/17 Time of Evaluation: 11:15 - Subjective Subjective: seen on HD refuses UF set BP noted to be high anuric appetite ok no chest pain no cough no abdominal pain no rash no fever no headache Objective - Vital Signs/Intake and Output Vital Signs (last 24 hours): Temp Pulse Resp BP Pulse Ox 98.1 F 85 16 161/83 H 95 06/15/17 09:30 06/15/17 09:30 06/15/17 09:18 06/15/17 11:20 06/15/17 07:20 Intake and Output: 06/15/17 06/15/17 06:59 18:59 Intake Total 240 Balance 240 - Medications Medications: Current Medications Acetaminophen (Tylenol 325mg Tab) 650 mg PO Q8H PRN PRN Reason: Pain, Mild (1-3) or Temp>100.4 Amlodipine Besylate (Norvasc) 5 mg PO DAILY [facility] Last Admin: 06/14/17 14:50 Dose: 5 mg Aspirin (Ecotrin) 81 mg PO DAILY [facility] Last Admin: 06/14/17 09:31 Dose: 81 mg Carvedilol (Coreg) 25 mg PO BID [facility] Clopidogrel Bisulfate (Plavix) 75 mg PO DAILY [facility] Last Admin: 06/14/17 09:35 Dose: 75 mg Diphenhydramine HCl (Benadryl) 25 mg IVP Q4 PRN PRN Reason: Itching / Pruritus Last Admin: 06/15/17 01:56 Dose: 25 mg Epoetin Alec (Procrit) 10,000 unit IV TTS [facility] Last Admin: 06/15/17 11:51 Dose: 10,000 unit Famotidine (Pepcid) 20 mg PO DAILY [facility] Last Admin: 06/14/17 09:30 Dose: 20 mg Gabapentin (Neurontin) 100 mg PO QPM [facility] Last Admin: 06/14/17 17:34 Dose: 100 mg Heparin Sodium (Porcine) (Heparin) 5,000 units SC Q8 [facility] Last Admin: 06/15/17 06:29 Dose: 5,000 units Heparin Sodium (Porcine) (Heparin) 3,700 units IVP TTS [facility] Stop: 06/20/17 10:01 Insulin Glargine (Lantus) 10 unit SC HS [facility] Last Admin: 06/14/17 21:24 Dose: 10 units Insulin Human Regular (Novolin R) 0 unit SC ACHS [facility] PRN Reason: Protocol Last Admin: 06/15/17 07:30 Dose: Not Given Morphine Sulfate (Morphine) 2 mg IVP Q6 PRN PRN Reason: Pain, severe (8-10) Oxycodone/Acetaminophen (Percocet 5/325 Mg Tab) 1 tab PO Q6H PRN PRN Reason: Pain, moderate (4-7) Stop: 06/16/17 23:46 Last Admin: 06/15/17 01:51 Dose: 1 tab Oxycodone/Acetaminophen (Percocet 5/325 Mg Tab) 2 tab PO Q6H PRN PRN Reason: Pain, moderate (4-7) Stop: 06/17/17 20:01 Last Admin: 06/15/17 08:42 Dose: 2 tab Saccharomyces Boulardii (Florastor) 250 mg PO HS [facility] Last Admin: 06/14/17 21:23 Dose: 250 mg Vitamin B Complex/Vit C/Folic Acid (Nephro-Cony) 1 tab PO DAILY [facility] Last Admin: 06/14/17 09:30 Dose: 1 tab - Labs Labs: 06/14/17 06:20 06/15/17 06:34 PT 11.9 SECONDS (9.7-12.2) 06/13/17 06:36 INR 1.1 06/13/17 06:36 APTT 33 SECONDS (21-34) 06/13/17 06:36 - Constitutional Appears: No Acute Distress, Chronically Ill - Eye Exam Eye Exam: EOMI, Normal appearance - ENT Exam ENT Exam: Mucous Membranes Moist - Neck Exam Neck Exam: Full ROM. absent: Lymphadenopathy - Respiratory Exam Respiratory Exam: Clear to Ausculation Bilateral, NORMAL BREATHING PATTERN - Cardiovascular Exam Cardiovascular Exam: REGULAR RHYTHM. absent: Rubs - GI/Abdominal Exam GI & Abdominal Exam: Soft, Normal Bowel Sounds Additional comments: colostomy - Extremities Exam Additional comments: bilateral amputee - Neurological Exam Neurological Exam: Alert, Awake Assessment and Plan - Assessment and Plan (Free Text) Assessment: maint HD carvediol increased wound care continue to offer support
[2017-06-15] MEDS: Multivitamin Vitamin B Complex (Nephro-Vite) Tab PO SCH (14:03)
--- NOTE | 2017-06-15 17:16 | CP.PCM.PN ---
Subjective - Date & Time of Evaluation Date of Evaluation: 06/15/17 Time of Evaluation: 17:16 Objective - Vital Signs/Intake and Output Vital Signs (last 24 hours): Temp Pulse Resp BP Pulse Ox 98.2 F 98 H 18 169/79 H 95 06/15/17 16:06 06/15/17 16:06 06/15/17 16:06 06/15/17 16:06 06/15/17 16:06 Intake and Output: 06/15/17 06/15/17 06:59 18:59 Intake Total 240 300 Balance 240 300 - Medications Medications: Current Medications Acetaminophen (Tylenol 325mg Tab) 650 mg PO Q8H PRN PRN Reason: Pain, Mild (1-3) or Temp>100.4 Amlodipine Besylate (Norvasc) 5 mg PO DAILY [facility] Last Admin: 06/15/17 14:06 Dose: 5 mg Aspirin (Ecotrin) 81 mg PO DAILY [facility] Last Admin: 06/15/17 14:04 Dose: 81 mg Carvedilol (Coreg) 25 mg PO BID [facility] Clopidogrel Bisulfate (Plavix) 75 mg PO DAILY [facility] Last Admin: 06/15/17 14:03 Dose: 75 mg Diphenhydramine HCl (Benadryl) 25 mg IVP Q4 PRN PRN Reason: Itching / Pruritus Last Admin: 06/15/17 14:14 Dose: 25 mg Epoetin Alec (Procrit) 10,000 unit IV TTS [facility] Last Admin: 06/15/17 11:51 Dose: 10,000 unit Famotidine (Pepcid) 20 mg PO DAILY [facility] Last Admin: 06/15/17 14:04 Dose: 20 mg Gabapentin (Neurontin) 100 mg PO QPM [facility] Last Admin: 06/14/17 17:34 Dose: 100 mg Heparin Sodium (Porcine) (Heparin) 5,000 units SC Q8 [facility] Last Admin: 06/15/17 14:05 Dose: Not Given Heparin Sodium (Porcine) (Heparin) 3,700 units IVP TTS [facility] Stop: 06/20/17 10:01 Last Admin: 06/15/17 12:40 Dose: 3,700 units Insulin Glargine (Lantus) 10 unit SC HS [facility] Last Admin: 06/14/17 21:24 Dose: 10 units Insulin Human Regular (Novolin R) 0 unit SC ACHS [facility] PRN Reason: Protocol Last Admin: 06/15/17 16:44 Dose: Not Given Morphine Sulfate (Morphine) 2 mg IVP Q6 PRN PRN Reason: Pain, severe (8-10) Oxycodone/Acetaminophen (Percocet 5/325 Mg Tab) 1 tab PO Q6H PRN PRN Reason: Pain, moderate (4-7) Stop: 06/16/17 23:46 Last Admin: 06/15/17 01:51 Dose: 1 tab Oxycodone/Acetaminophen (Percocet 5/325 Mg Tab) 2 tab PO Q6H PRN PRN Reason: Pain, moderate (4-7) Stop: 06/17/17 20:01 Last Admin: 06/15/17 17:02 Dose: 2 tab Saccharomyces Boulardii (Florastor) 250 mg PO [facility] Last Admin: 06/14/17 21:23 Dose: 250 mg Vitamin B Complex/Vit C/Folic Acid (Nephro-Cony) 1 tab PO DAILY [facility] Last Admin: 06/15/17 14:03 Dose: 1 tab - Labs Labs: 06/14/17 06:20 06/15/17 06:34 PT 11.9 SECONDS (9.7-12.2) 06/13/17 06:36 INR 1.1 06/13/17 06:36 APTT 33 SECONDS (21-34) 06/13/17 06:36
[2017-06-15] MEDS: Promethazine 6.25 MG/5 ML CUP PO PRN (18:56)
[2017-06-15] MEDS: Saccharomyces Boulardi 250 mg Cap PO SCH (21:33)
[2017-06-15] MEDS: (Lantus) Insulin Glargine, Recombinant SC SCH (21:34)
[2017-06-16] MEDS: Promethazine 6.25 MG/5 ML CUP PO PRN ×2 (02:47→12:06)
[2017-06-16] MEDS ORDERED: guaiFENesin DM 200 mg-20 mg/10 ml UD PO STA (06:42)
[2017-06-16] MEDS: Oxycodone/Acetaminophen 5/325 mg Tab PO PRN (07:23)
[2017-06-16] MEDS ORDERED: guaiFENesin 200 mg/10 ml Syrup UD PO ONE (07:32)
[2017-06-16 07:48] LABS: BASO % 0.6 % (0.0-2.0); EOS # 0.2 K/uL (0.0-0.7); EOS % 2.6 % (0.0-4.0); HEMOGLOBIN 9.9 g/dL (11.0-16.0); LYMPH # 0.9 K/uL (1.0-4.3); LYMPH % 11.7 % (20.0-40.0); MEAN CELL VOLUME 97.9 fL (81.0-99.0); MEAN CORPUSCULAR HEMOGLOBIN 31.4 pg (27.0-31.0); MEAN CORPUSCULAR HGB CONC 32.1 g/dL (33.0-37.0); MEAN PLATELET VOLUME 9.2 fL (7.2-11.7); MONO # 0.6 K/uL (0.0-0.8); MONO % 8.3 % (0.0-10.0); NEUT # 5.7 K/uL (1.8-7.0); NEUT % 76.8 % (50.0-75.0); RBC 3.15 Mil/uL (3.80-5.20); RED CELL DISTRIBUTION WIDTH 19.7 % (11.5-14.5); WHITE BLOOD COUNT 7.4 K/uL (4.8-10.8)
[2017-06-16 07:59] LABS: ALBUMIN 3.7 g/dL (3.5-5.0); CALCIUM 9.1 mg/dl (8.6-10.4)
[2017-06-16] MEDS: (Novolin R) Insulin Human Regular 100 units/ml vial SC SCH ×4 (08:02→21:26)
[2017-06-16] MEDS: guaiFENesin 200 mg/10 ml Syrup UD PO ONE ×2 (08:13→08:14)
[2017-06-16] MEDS: Multivitamin Vitamin B Complex (Nephro-Vite) Tab PO SCH (09:53)
--- NOTE | 2017-06-16 12:59 | CP.PCM.PN ---
Subjective - Date & Time of Evaluation Date of Evaluation: 06/16/17 Time of Evaluation: 12:59 Objective - Vital Signs/Intake and Output Vital Signs (last 24 hours): Temp Pulse Resp BP Pulse Ox 101.3 F H 88 20 139/66 97 06/16/17 07:00 06/16/17 11:39 06/16/17 07:00 06/16/17 11:39 06/16/17 07:00 - Medications Medications: Current Medications Acetaminophen (Tylenol 325mg Tab) 650 mg PO Q8H PRN PRN Reason: Pain, Mild (1-3) or Temp>100.4 Amlodipine Besylate (Norvasc) 5 mg PO DAILY [facility] Last Admin: 06/16/17 10:00 Dose: Not Given Aspirin (Ecotrin) 81 mg PO DAILY [facility] Last Admin: 06/16/17 09:53 Dose: 81 mg Carvedilol (Coreg) 25 mg PO BID [facility] Last Admin: 06/16/17 10:00 Dose: Not Given Clopidogrel Bisulfate (Plavix) 75 mg PO DAILY [facility] Last Admin: 06/16/17 09:53 Dose: 75 mg Diphenhydramine HCl (Benadryl) 25 mg IVP Q4 PRN PRN Reason: Itching / Pruritus Last Admin: 06/15/17 14:14 Dose: 25 mg Epoetin Alec (Procrit) 10,000 unit IV TTS [facility] Last Admin: 06/15/17 11:51 Dose: 10,000 unit Famotidine (Pepcid) 20 mg PO DAILY [facility] Last Admin: 06/16/17 09:53 Dose: 20 mg Gabapentin (Neurontin) 100 mg PO QPM [facility] Last Admin: 06/15/17 17:31 Dose: 100 mg Heparin Sodium (Porcine) (Heparin) 5,000 units SC Q8 [facility] Last Admin: 06/16/17 06:30 Dose: Not Given Heparin Sodium (Porcine) (Heparin) 3,700 units IVP TTS [facility] Stop: 06/20/17 10:01 Last Admin: 06/15/17 12:40 Dose: 3,700 units Insulin Glargine (Lantus) 10 unit SC HS [facility] Last Admin: 06/15/17 21:34 Dose: 10 units Insulin Human Regular (Novolin R) 0 unit SC ACHS [facility] PRN Reason: Protocol Last Admin: 06/16/17 08:02 Dose: 2 unit Morphine Sulfate (Morphine) 2 mg IVP Q6 PRN PRN Reason: Pain, severe (8-10) Oxycodone/Acetaminophen (Percocet 5/325 Mg Tab) 1 tab PO Q6H PRN PRN Reason: Pain, moderate (4-7) Stop: 06/16/17 23:46 Last Admin: 06/15/17 01:51 Dose: 1 tab Oxycodone/Acetaminophen (Percocet 5/325 Mg Tab) 2 tab PO Q6H PRN PRN Reason: Pain, moderate (4-7) Stop: 06/17/17 20:01 Last Admin: 06/16/17 07:23 Dose: 2 tab Promethazine HCl (Phenergan Syrup) 6.25 mg PO Q8 PRN PRN Reason: Cough Last Admin: 06/16/17 12:06 Dose: 6.25 mg Saccharomyces Boulardii (Florastor) 250 mg PO HS [facility] Last Admin: 06/15/17 21:33 Dose: 250 mg Vitamin B Complex/Vit C/Folic Acid (Nephro-Cony) 1 tab PO DAILY [facility] Last Admin: 06/16/17 09:53 Dose: 1 tab - Labs Labs: 06/16/17 07:30 06/16/17 07:30 PT 11.9 SECONDS (9.7-12.2) 06/13/17 06:36 INR 1.1 06/13/17 06:36 APTT 33 SECONDS (21-34) 06/13/17 06:36
[2017-06-16] MEDS: (Lantus) Insulin Glargine, Recombinant SC SCH (21:26)
[2017-06-16] MEDS: Saccharomyces Boulardi 250 mg Cap PO SCH (22:10)
[2017-06-17] MEDS: Promethazine 6.25 MG/5 ML CUP PO PRN ×3 (00:56→22:12)
--- NOTE | 2017-06-17 05:25 | CARD ---
APPROVED REPORT EKG Measurement Heart [id number] <Conclusion> Normal sinus rhythm Possible Left atrial enlargement Nonspecific ST and T wave abnormality Abnormal ECG
[2017-06-17] MEDS: (Novolin R) Insulin Human Regular 100 units/ml vial SC SCH ×4 (08:35→21:52)
[2017-06-17] MEDS: Multivitamin Vitamin B Complex (Nephro-Vite) Tab PO SCH (10:11)
--- NOTE | 2017-06-17 12:38 | CP.PCM.PN ---
Subjective - Date & Time of Evaluation Date of Evaluation: 06/17/17 Time of Evaluation: 12:36 - Subjective Subjective: Stable dialysis 06/15- UF 2500ml 'BP moderately high c/o left stump pain Eating well, no other complaint Objective - Vital Signs/Intake and Output Vital Signs (last 24 hours): Temp Pulse Resp BP Pulse Ox 98.4 F 79 20 160/80 H 100 06/17/17 08:15 06/17/17 08:15 06/17/17 08:15 06/17/17 10:11 06/17/17 08:15 Intake and Output: 06/17/17 06/17/17 06:59 18:59 Intake Total 240 Output Total 600 Balance -360 - Medications Medications: Current Medications Acetaminophen (Tylenol 325mg Tab) 650 mg PO Q8H PRN PRN Reason: Pain, Mild (1-3) or Temp>100.4 Amlodipine Besylate (Norvasc) 5 mg PO DAILY [facility] Last Admin: 06/17/17 10:10 Dose: 5 mg Aspirin (Ecotrin) 81 mg PO DAILY [facility] Last Admin: 06/17/17 10:11 Dose: 81 mg Carvedilol (Coreg) 25 mg PO BID [facility] Last Admin: 06/17/17 10:11 Dose: 25 mg Clopidogrel Bisulfate (Plavix) 75 mg PO DAILY [facility] Last Admin: 06/17/17 10:11 Dose: 75 mg Diphenhydramine HCl (Benadryl) 25 mg IVP Q4 PRN PRN Reason: Itching / Pruritus Last Admin: 06/15/17 14:14 Dose: 25 mg Epoetin Alec (Procrit) 10,000 unit IV TTS [facility] Last Admin: 06/15/17 11:51 Dose: 10,000 unit Famotidine (Pepcid) 20 mg PO DAILY [facility] Last Admin: 06/17/17 10:11 Dose: 20 mg Gabapentin (Neurontin) 100 mg PO QPM [facility] Last Admin: 06/16/17 17:31 Dose: 100 mg Heparin Sodium (Porcine) (Heparin) 3,700 units IVP TTS [facility] Stop: 06/20/17 10:01 Last Admin: 06/15/17 12:40 Dose: 3,700 units Hydromorphone HCl (Dilaudid) 1 mg IVP Q6H PRN PRN Reason: Pain, severe (8-10) Insulin Glargine (Lantus) 10 unit SC [facility] Last Admin: 06/16/17 21:26 Dose: Not Given Insulin Human Regular (Novolin R) 0 unit SC [facility] PRN Reason: Protocol Last Admin: 06/17/17 08:35 Dose: Not Given Oxycodone/Acetaminophen (Percocet 5/325 Mg Tab) 2 tab PO Q6H PRN PRN Reason: Pain, moderate (4-7) Stop: 06/17/17 20:01 Last Admin: 06/16/17 07:23 Dose: 2 tab Promethazine HCl (Phenergan Syrup) 6.25 mg PO Q8 PRN PRN Reason: Cough Last Admin: 06/17/17 00:56 Dose: 6.25 mg Saccharomyces Boulardii (Florastor) 250 mg PO [facility] Last Admin: 06/16/17 22:10 Dose: 250 mg Vitamin B Complex/Vit C/Folic Acid (Nephro-Cony) 1 tab PO DAILY [facility] Last Admin: 06/17/17 10:11 Dose: 1 tab - Labs Labs: 06/16/17 07:30 06/16/17 07:30 PT 11.9 SECONDS (9.7-12.2) 06/13/17 06:36 INR 1.1 06/13/17 06:36 APTT 33 SECONDS (21-34) 06/13/17 06:36 - Constitutional Appears: No Acute Distress, Chronically Ill - Head Exam Head Exam: ATRAUMATIC, NORMAL INSPECTION - Eye Exam Eye Exam: EOMI, Normal appearance - Neck Exam Neck Exam: Normal Inspection. absent: Tenderness - Respiratory Exam Respiratory Exam: Clear to Ausculation Bilateral, NORMAL BREATHING PATTERN - Cardiovascular Exam Cardiovascular Exam: REGULAR RHYTHM, +S1 - GI/Abdominal Exam GI & Abdominal Exam: Soft. absent: Tenderness - Extremities Exam Extremities Exam: Tenderness - Neurological Exam Neurological Exam: Awake, CN II-XII Intact - Skin Skin Exam: Dry, Warm Assessment and Plan (1) End stage renal disease Status: Acute (2) S/P BKA (below knee amputation) bilateral Status: Acute (3) CHF (congestive heart failure) Status: Acute (4) HTN (hypertension) Status: Acute (5) HTN (hypertension), benign Status: Acute - Assessment and Plan (Free Text) Plan: Increase BP med dose Dialysis TTS with adequate UF Wound care follow up Cont. ESAs
--- NOTE | 2017-06-17 13:52 | CP.PCM.PN ---
Subjective - Date & Time of Evaluation Date of Evaluation: 06/17/17 Time of Evaluation: 13:52 Objective - Vital Signs/Intake and Output Vital Signs (last 24 hours): Temp Pulse Resp BP Pulse Ox 98.4 F 79 20 160/80 H 100 06/17/17 08:15 06/17/17 08:15 06/17/17 08:15 06/17/17 10:11 06/17/17 08:15 Intake and Output: 06/17/17 06/17/17 06:59 18:59 Intake Total 240 Output Total 600 Balance -360 - Medications Medications: Current Medications Acetaminophen (Tylenol 325mg Tab) 650 mg PO Q8H PRN PRN Reason: Pain, Mild (1-3) or Temp>100.4 Last Admin: 06/17/17 12:47 Dose: 650 mg Amlodipine Besylate (Norvasc) 10 mg PO DAILY [facility] Aspirin (Ecotrin) 81 mg PO DAILY [facility] Last Admin: 06/17/17 10:11 Dose: 81 mg Carvedilol (Coreg) 25 mg PO BID [facility] Last Admin: 06/17/17 10:11 Dose: 25 mg Clopidogrel Bisulfate (Plavix) 75 mg PO DAILY [facility] Last Admin: 06/17/17 10:11 Dose: 75 mg Diphenhydramine HCl (Benadryl) 25 mg IVP Q4 PRN PRN Reason: Itching / Pruritus Last Admin: 06/15/17 14:14 Dose: 25 mg Epoetin Alec (Procrit) 10,000 unit IV TTS [facility] Last Admin: 06/15/17 11:51 Dose: 10,000 unit Famotidine (Pepcid) 20 mg PO DAILY [facility] Last Admin: 06/17/17 10:11 Dose: 20 mg Gabapentin (Neurontin) 100 mg PO QPM [facility] Last Admin: 06/16/17 17:31 Dose: 100 mg Heparin Sodium (Porcine) (Heparin) 3,700 units IVP TTS [facility] Stop: 06/20/17 10:01 Last Admin: 06/15/17 12:40 Dose: 3,700 units Hydromorphone HCl (Dilaudid) 1 mg IVP Q6H PRN PRN Reason: Pain, severe (8-10) Insulin Glargine (Lantus) 10 unit SC HS [facility] Last Admin: 06/16/17 21:26 Dose: Not Given Insulin Human Regular (Novolin R) 0 unit SC ACHS [facility] PRN Reason: Protocol Last Admin: 06/17/17 12:00 Dose: Not Given Oxycodone/Acetaminophen (Percocet 5/325 Mg Tab) 2 tab PO Q6H PRN PRN Reason: Pain, moderate (4-7) Stop: 06/17/17 20:01 Last Admin: 06/16/17 07:23 Dose: 2 tab Promethazine HCl (Phenergan Syrup) 6.25 mg PO Q8 PRN PRN Reason: Cough Last Admin: 06/17/17 00:56 Dose: 6.25 mg Saccharomyces Boulardii (Florastor) 250 mg PO HS [facility] Last Admin: 06/16/17 22:10 Dose: 250 mg Vitamin B Complex/Vit C/Folic Acid (Nephro-Cony) 1 tab PO DAILY [facility] Last Admin: 06/17/17 10:11 Dose: 1 tab - Labs Labs: 06/16/17 07:30 06/16/17 07:30 PT 11.9 SECONDS (9.7-12.2) 06/13/17 06:36 INR 1.1 06/13/17 06:36 APTT 33 SECONDS (21-34) 06/13/17 06:36
[2017-06-17] MEDS: DiphenhydrAMINE 50 mg/ml Inj IVP PRN ×2 (17:34→23:19)
[2017-06-17] MEDS: (Lantus) Insulin Glargine, Recombinant SC SCH (21:50)
[2017-06-17] MEDS: Saccharomyces Boulardi 250 mg Cap PO SCH (22:08)
[2017-06-18] MEDS: (Novolin R) Insulin Human Regular 100 units/ml vial SC SCH ×3 (07:31→21:49)
[2017-06-18] MEDS: DiphenhydrAMINE 50 mg/ml Inj IVP PRN ×3 (08:32→21:12)
--- NOTE | 2017-06-18 11:54 | CP.PCM.PN ---
Subjective - Date & Time of Evaluation Date of Evaluation: 06/18/17 Time of Evaluation: 11:52 - Subjective Subjective: seen in hd bp stable, afebrile estimated uf 2L pt somnolent- denies any sob chest pain abdominal pain dizziness. c/o non healing wound left stump, does dressing on her own Objective - Vital Signs/Intake and Output Vital Signs (last 24 hours): Temp Pulse Resp BP Pulse Ox 98.6 F 81 18 135/67 96 06/18/17 09:55 06/18/17 09:55 06/18/17 09:55 06/18/17 11:25 06/18/17 09:55 Intake and Output: 06/18/17 06/18/17 06:59 18:59 Intake Total 100 0 Balance 100 0 - Medications Medications: Current Medications Acetaminophen (Tylenol 325mg Tab) 650 mg PO Q8H PRN PRN Reason: Pain, Mild (1-3) or Temp>100.4 Last Admin: 06/17/17 12:47 Dose: 650 mg Amlodipine Besylate (Norvasc) 10 mg PO DAILY [facility] Aspirin (Ecotrin) 81 mg PO DAILY [facility] Last Admin: 06/17/17 10:11 Dose: 81 mg Carvedilol (Coreg) 25 mg PO BID [facility] Last Admin: 06/17/17 17:17 Dose: 25 mg Clopidogrel Bisulfate (Plavix) 75 mg PO DAILY [facility] Last Admin: 06/17/17 10:11 Dose: 75 mg Diphenhydramine HCl (Benadryl) 25 mg IVP Q4 PRN PRN Reason: Itching / Pruritus Last Admin: 06/18/17 08:32 Dose: 25 mg Epoetin Alec (Procrit) 10,000 unit IV TTS [facility] Last Admin: 06/15/17 11:51 Dose: 10,000 unit Famotidine (Pepcid) 20 mg PO DAILY [facility] Last Admin: 06/17/17 10:11 Dose: 20 mg Gabapentin (Neurontin) 100 mg PO QPM [facility] Last Admin: 06/17/17 17:17 Dose: 100 mg Heparin Sodium (Porcine) (Heparin) 3,700 units IVP TTS [facility] Stop: 06/20/17 10:01 Last Admin: 06/15/17 12:40 Dose: 3,700 units Hydromorphone HCl (Dilaudid) 1 mg IVP Q6H PRN PRN Reason: Pain, severe (8-10) Last Admin: 06/18/17 08:14 Dose: 1 mg Insulin Glargine (Lantus) 10 unit SC HS [facility] Last Admin: 06/17/17 21:50 Dose: Not Given Insulin Human Regular (Novolin R) 0 unit SC ACHS [facility] PRN Reason: Protocol Last Admin: 06/18/17 07:31 Dose: Not Given Promethazine HCl (Phenergan Syrup) 6.25 mg PO Q8 PRN PRN Reason: Cough Last Admin: 06/17/17 22:12 Dose: 6.25 mg Saccharomyces Boulardii (Florastor) 250 mg PO [facility] Last Admin: 06/17/17 22:08 Dose: 250 mg Vitamin B Complex/Vit C/Folic Acid (Nephro-Cony) 1 tab PO DAILY [facility] Last Admin: 06/17/17 10:11 Dose: 1 tab - Labs Labs: 06/16/17 07:30 06/16/17 07:30 PT 11.9 SECONDS (9.7-12.2) 06/13/17 06:36 INR 1.1 06/13/17 06:36 APTT 33 SECONDS (21-34) 06/13/17 06:36 - Constitutional Appears: Non-toxic, No Acute Distress, Chronically Ill - Head Exam Head Exam: NORMAL INSPECTION - Eye Exam Eye Exam: Normal appearance Pupil Exam: NORMAL ACCOMODATION, PERRL - ENT Exam ENT Exam: Mucous Membranes Moist, Normal Exam - Neck Exam Neck Exam: Normal Inspection - Respiratory Exam Respiratory Exam: Clear to Ausculation Bilateral, NORMAL BREATHING PATTERN - Cardiovascular Exam Cardiovascular Exam: REGULAR RHYTHM, RRR - GI/Abdominal Exam GI & Abdominal Exam: Distended (colostomy), Soft - Extremities Exam Additional comments: b/l amputee. left stump dressing in place, clean dry - Neurological Exam Neurological Exam: Alert, Awake, Oriented x3 Assessment and Plan (1) Congestive heart failure Status: Acute (2) End stage renal disease Status: Acute (3) HTN (hypertension) Status: Acute (4) S/P BKA (below knee amputation) bilateral Status: Acute (5) Anemia Status: Acute - Assessment and Plan (Free Text) Assessment: maintain hd tts w/ good uf as tolerated fluid restriction advised bp stable wound care for stump ? antibiotics at alf - will clarify
[2017-06-18] MEDS: Epoetin Alfa 10,000 unit/ml Dialysis IV SCH (12:29)
--- NOTE | 2017-06-18 13:37 | CP.PCM.PN ---
Subjective - Date & Time of Evaluation Date of Evaluation: 06/18/17 Time of Evaluation: 13:37 Objective - Vital Signs/Intake and Output Vital Signs (last 24 hours): Temp Pulse Resp BP Pulse Ox 98.6 F 81 18 98/46 L 96 06/18/17 09:55 06/18/17 09:55 06/18/17 09:55 06/18/17 12:55 06/18/17 09:55 Intake and Output: 06/18/17 06/18/17 06:59 18:59 Intake Total 100 0 Balance 100 0 - Medications Medications: Current Medications Acetaminophen (Tylenol 325mg Tab) 650 mg PO Q8H PRN PRN Reason: Pain, Mild (1-3) or Temp>100.4 Last Admin: 06/17/17 12:47 Dose: 650 mg Amlodipine Besylate (Norvasc) 10 mg PO DAILY [facility] Aspirin (Ecotrin) 81 mg PO DAILY [facility] Last Admin: 06/17/17 10:11 Dose: 81 mg Carvedilol (Coreg) 25 mg PO BID [facility] Last Admin: 06/17/17 17:17 Dose: 25 mg Clopidogrel Bisulfate (Plavix) 75 mg PO DAILY [facility] Last Admin: 06/17/17 10:11 Dose: 75 mg Diphenhydramine HCl (Benadryl) 25 mg IVP Q4 PRN PRN Reason: Itching / Pruritus Last Admin: 06/18/17 08:32 Dose: 25 mg Epoetin Alec (Procrit) 10,000 unit IV TTS [facility] Last Admin: 06/18/17 12:29 Dose: 10,000 unit Famotidine (Pepcid) 20 mg PO DAILY [facility] Last Admin: 06/17/17 10:11 Dose: 20 mg Gabapentin (Neurontin) 100 mg PO QPM [facility] Last Admin: 06/17/17 17:17 Dose: 100 mg Heparin Sodium (Porcine) (Heparin) 3,700 units IVP TTS [facility] Stop: 06/25/17 10:01 Hydromorphone HCl (Dilaudid) 1 mg IVP Q6H PRN PRN Reason: Pain, severe (8-10) Last Admin: 06/18/17 08:14 Dose: 1 mg Insulin Glargine (Lantus) 10 unit SC HS [facility] Last Admin: 06/17/17 21:50 Dose: Not Given Insulin Human Regular (Novolin R) 0 unit SC ACHS [facility] PRN Reason: Protocol Last Admin: 06/18/17 07:31 Dose: Not Given Promethazine HCl (Phenergan Syrup) 6.25 mg PO Q8 PRN PRN Reason: Cough Last Admin: 06/17/17 22:12 Dose: 6.25 mg Saccharomyces Boulardii (Florastor) 250 mg PO HS [facility] Last Admin: 06/17/17 22:08 Dose: 250 mg Vitamin B Complex/Vit C/Folic Acid (Nephro-Cony) 1 tab PO DAILY [facility] Last Admin: 06/17/17 10:11 Dose: 1 tab - Labs Labs: 06/16/17 07:30 06/16/17 07:30 PT 11.9 SECONDS (9.7-12.2) 06/13/17 06:36 INR 1.1 06/13/17 06:36 APTT 33 SECONDS (21-34) 06/13/17 06:36
[2017-06-18 13:44] VITALS: RESP 20
[2017-06-18] MEDS: Multivitamin Vitamin B Complex (Nephro-Vite) Tab PO SCH (14:17)
[2017-06-18] MEDS: Promethazine 6.25 MG/5 ML CUP PO PRN (14:31)
[2017-06-18 15:56] VITALS: BP 139/81; PULSE 94; TEMP 98.8; O2SAT 96
[2017-06-18] MEDS: Saccharomyces Boulardi 250 mg Cap PO SCH (21:11)
--- NOTE | 2017-06-19 08:04 | CP.PCM.PN ---
Subjective - Date & Time of Evaluation Date of Evaluation: 06/18/17 Time of Evaluation: 16:00 - Subjective Subjective: CRIBBER NOTES Patient seen today after HD denies any chest pain, sob, abdominal pain, N/V/, c/ o pain to the LE extremities , improved with pain medication No overnight events reported Objective - Vital Signs/Intake and Output Vital Signs (last 24 hours): Temp Pulse Resp BP Pulse Ox 98.8 F 94 H 20 139/81 96 06/18/17 15:55 06/18/17 15:55 06/18/17 15:55 06/18/17 18:20 06/18/17 15:55 Intake and Output: 06/19/17 06/19/17 06:59 18:59 Intake Total 100 Balance 100 - Labs Labs: 06/16/17 07:30 06/16/17 07:30 PT 11.9 SECONDS (9.7-12.2) 06/13/17 06:36 INR 1.1 06/13/17 06:36 APTT 33 SECONDS (21-34) 06/13/17 06:36
== END 2017-06-18 22:46 | DRG 127 ==
LOC: C.ER 05:55 → OBSVTOIN 07:41 → INTOOBSV 07:41 → C.9E 07:41 → UNDOADMOB 07:41 → C.6T 16:59 → C.9E 16:59 → OBSVTOIN 06-16 00:53 → C.6T 06-16 00:53
PROVIDERS: ADMIT Internal Medicine Nephrology; ATTEND Internal Medicine Nephrology
PROC: 5A1D70Z Performance of Urinary Filtration, Intermittent, Less than 6 Hours Per Day (ICD-10-PCS; principal; 2017-06-16)
DX: I13.2 Hypertensive heart and chronic kidney disease with heart failure and with stage 5 chronic kidney disease, or end stage renal disease (principal); E11.22 Type 2 diabetes mellitus with diabetic chronic kidney disease; N18.6 End stage renal disease; I50.9 Heart failure, unspecified; J44.9 Chronic obstructive pulmonary disease, unspecified; D64.9 Anemia, unspecified; E78.00 Pure hypercholesterolemia, unspecified; Z79.4 Long term (current) use of insulin; Z87.891 Personal history of nicotine dependence; Z89.511 Acquired absence of right leg below knee; Z89.512 Acquired absence of left leg below knee; Z93.3 Colostomy status; K59.00 Constipation, unspecified

== ENCOUNTER 2017-07-23 19:54 | Inpatient (IN) | payer OTHER ==
[2017-07-23 19:54] VITALS: BMI 26.9
--- NOTE | 2017-07-23 23:20 | C.PDOC ---
History Of Present Illness 51 y/o female, whose PMHx includes Diabetes, severe peripheral arterial disease , bilateral below-knee amputations, and colostomy for bowel obstruction, presents to the ED for a colostomy reversal. Patient was sent to the ED by her PMD, Dr. Lord, for further management. Patient denies fever, chills and has no other complaints at this time. Chief Complaint (Nursing): Medical Clearance History Per: Patient History/Exam Limitations: no limitations Onset/Duration Of Symptoms: Hrs Current Symptoms Are (Timing): Still Present Additional History Per: Patient Past Medical History Reviewed: Historical Data, Nursing Documentation, Vital Signs Vital Signs: Last Vital Signs Temp 98.1 F 07/24/17 01:08 Pulse 101 H 07/24/17 01:08 Resp 18 07/24/17 01:08 BP 158/88 H 07/24/17 01:08 Pulse Ox 100 07/24/17 01:08 - Medical History PMH: Anemia, Anxiety, Bronchitis, CHF, Diabetes, HTN, Hypercholesterolemia, End Stage Renal Disease (PD), Chronic Kidney Disease Denies: Pneumonia Surgical History: - [facility] Procedures (06/16/17) BYPASS RIGHT FEMORAL ARTERY TO POPLIT ART, OPEN APPROACH (10/26/16) CREATE CUTANPERITON FIST (12/30/14) DETACHMENT AT LEFT LOWER LEG, HIGH, OPEN APPROACH (05/03/17) DETACHMENT AT RIGHT FOOT, PARTIAL 1ST RAY, OPEN APPROACH (02/04/17) DETACHMENT AT RIGHT FOOT, PARTIAL 2ND RAY, OPEN APPROACH (02/04/17) DETACHMENT AT RIGHT FOOT, PARTIAL 3RD RAY, OPEN APPROACH (02/04/17) DETACHMENT AT RIGHT FOOT, PARTIAL 4TH RAY, OPEN APPROACH (02/04/17) DETACHMENT AT RIGHT FOOT, PARTIAL 5TH RAY, OPEN APPROACH (02/04/17) DETACHMENT AT RIGHT KNEE REGION, OPEN APPROACH (02/04/17) DILATION OF R COM ILIAC ART WITH INTRALUM DEV, PERC APPROACH (10/26/16) EXCISION OF RIGHT FOOT SKIN, EXTERNAL APPROACH (02/04/17) EXCISION OF SIGMOID COLON, OPEN APPROACH (02/04/17) FLUOROSCOPY OF LEFT HEART USING LOW OSMOLAR CONTRAST (10/26/16) FLUOROSCOPY OF MULT COR ART USING L OSM CONTRAST (10/26/16) HEMODIALYSIS (11/06/14) INSERTION OF INFUSION DEV INTO R SUBCLAV VEIN, PERC APPROACH (02/04/17) INSERTION OF INFUSION DEV INTO SUP VENA CAVA, PERC APPROACH (02/04/17) IRRIGATION OF PERITON CAV USING DIALYSATE, PERC APPROACH (05/03/17) LAPAROSCOP LYSIS-PERITONEAL ADHES (12/30/14) MEASURE OF CARDIAC SAMPL & PRESSURE, L HEART, PERC APPROACH (10/26/16) PLAIN RADIOGRAPHY OF AORTA, BI LE ART USING L OSM CONTRAST (10/26/16) REMOVAL OF INFUSION DEVICE FROM GREAT VESSEL, PERC APPROACH (02/04/17) TRANSFUSE NONAUT RED BLOOD CELLS IN PERIPH VEIN, PERC (02/04/17) VASCULAR CATH IRRIGATION (01/14/15) VENOUS CATHETERIZATION FOR RENAL DIALYSIS (11/06/14) Family History: States: Unknown Family Hx - Social History Hx Tobacco Use: Yes Hx Alcohol Use: No Hx Substance Use: No - Immunization History Hx Tetanus Toxoid Vaccination: Yes Hx Influenza Vaccination: No Hx Pneumococcal Vaccination: No Review Of Systems Constitutional: Negative for: Fever, Chills Gastrointestinal: Positive for: Other (colostomy reversal ) Physical Exam - Physical Exam Appears: Non-toxic, No Acute Distress, Other (pleasant demeanor ) Skin: Normal Color, Warm, Dry Head: Atraumatic, Normacephalic Eye(s): bilateral: Normal Inspection Oral Mucosa: Moist Neck: Supple Chest: Symmetrical, No Deformity, No Tenderness Cardiovascular: Rhythm Regular, No Murmur Respiratory: Normal Breath Sounds, No Rales, No Rhonchi, No Wheezing Gastrointestinal/Abdominal: Soft, No Tenderness, No Guarding, No Rebound, Other (colostomy in right lower quadrant with brown stool noted inside bag. well- healed, midline laparoscopic scar noted ) Extremity: Normal ROM, Capillary Refill (less than 2 seconds ), Other (below- knee amputations to bilateral lower extremities ) Neurological/Psych: Normal Speech, Normal Cognition Gait: Steady ED Course And Treatment - Laboratory Results Result Diagrams: 07/24/17 00:35 07/24/17 00:32 O2 Sat by Pulse Oximetry: 100 (on RA) Pulse Ox Interpretation: Normal Medical Decision Making Medical Decision Making: Progress: Bloodwork ordered and reviewed. Disposition - Disposition Disposition: HOSPITALIZED Disposition Time: 06:38 Condition: FAIR - Clinical Impression Clinical Impression: Colostomy and enterostomy complications - Scribe Statement The provider has reviewed the documentation as recorded by the Scribe (Sol Prieto) Provider Attestation: All medical record entries made by the Scribe were at my direction and personally dictated by me. I have reviewed the chart and agree that the record accurately reflects my personal performance of the history, physical exam, medical decision making, and the department course for this patient. I have also personally directed, reviewed, and agree with the discharge instructions and disposition.
[2017-07-24 00:48] LABS: BASO # 0.1 K/uL (0.0-0.2); BASO % 0.8 % (0.0-2.0); EOS # 0.1 K/uL (0.0-0.7); EOS % 1.4 % (0.0-4.0); LYMPH # 2.3 K/uL (1.0-4.3); MEAN CELL VOLUME 98.8 fL (81.0-99.0); MEAN CORPUSCULAR HEMOGLOBIN 32.1 pg (27.0-31.0); MEAN CORPUSCULAR HGB CONC 32.5 g/dL (33.0-37.0); MEAN PLATELET VOLUME 9.6 fL (7.2-11.7); MONO # 0.6 K/uL (0.0-0.8); MONO % 8.5 % (0.0-10.0); NEUT # 4.1 K/uL (1.8-7.0); NEUT % 57.3 % (50.0-75.0); RBC 3.75 Mil/uL (3.80-5.20); RED CELL DISTRIBUTION WIDTH 18.9 % (11.5-14.5); WHITE BLOOD COUNT 7.1 K/uL (4.8-10.8)
[2017-07-24 01:06] LABS: ALB/GLOB RATIO 0.9 (1.0-2.1); ALBUMIN 4.2 g/dL (3.5-5.0); CALCIUM 9.7 mg/dl (8.6-10.4)
[2017-07-24] MEDS: (Novolin R) Insulin Human Regular 100 units/ml vial SC SCH ×4 (07:50→22:06)
[2017-07-24] MEDS: Multivitamin Vitamin B Complex (Nephro-Vite) Tab PO SCH (10:26)
[2017-07-24] MEDS: Oxycodone/Acetaminophen 5/325 mg Tab PO PRN (13:31)
--- NOTE | 2017-07-24 14:57 | CP.PCM.CON ---
History of Present Illness - History of Present Illness History of Present Illness: 51 y/o female, whose PMHx includes Diabetes type 1, severe peripheral arterial disease, bilateral below-knee amputations, and colostomy for bowel obstruction, presents to the ED for a colostomy reversal. Patient was sent to the ED by her PMD, Dr. Lord, for further management. Patient denies fever, chills and has no other complaints at this time. PMH: ESRD DIABETIC NEPHROPATHY PAD HTN DM 1 PSH: BILATERAL BKAs PD CATH AND REMOVAL Review of Systems - Constitutional Constitutional: Fatigue, Weakness - EENT Eyes: Blurred Vision Ears: absent: As Per HPI, Decreased Hearing, Ear Discharge, Ear Pain, Tinnitus, Abnormal Hearing, Disequilibrium, Dizziness, Other Nose/Mouth/Throat: absent: As Per HPI, Epistaxis, Nasal Congestion, Nasal Discharge, Nasal Obstruction, Nasal Trauma, Nose Pain, Post Nasal Drip, Sinus Pain, Sinus Pressure, Bleeding Gums, Change in Voice, Dental Pain, Dry Mouth, Dysphagia, Halitosis, Hoarsness, Lip Swelling, Mouth Lesions, Mouth Pain, Odynophagia, Sore Throat, Throat Swelling, Tongue Swelling, Facial Pain, Neck Pain, Neck Mass, Other - Cardiovascular Cardiovascular: Dyspnea on Exertion - Respiratory Respiratory: Dyspnea on Exertion - Gastrointestinal Gastrointestinal: absent: As Per HPI, Abdominal Pain, Belching, Bloating, Change in Bowel Habits, Change in Stool Character, Coffee Ground Emesis, Constipation, Cramping, Diarrhea, Dyspepsia, Dysphagia, Early Satiety, Excessive Flatus, Fecal Incontinence, Heartburn, Hematemesis, Hematochezia, Loose Stools, Melena, Nausea, Odynophagia, Temesmus, Vomiting, Other - Genitourinary Genitourinary: As Per HPI - Musculoskeletal Musculoskeletal: Muscle Cramps, Muscle Weakness - Integumentary Integumentary: Dry Skin, Non-Healing Lesions - Neurological Neurological: Dizziness Past Patient History - Infectious Disease Hx of Infectious Diseases: None - Past Medical History & Family History Past Medical History?: Yes - Past Social History Smoking Status: Former Smoker Chewing Tobacco Use: No Cigar Use: No Alcohol: None Drugs: Denies Home Situation {Lives}: Half-Way - CARDIAC Hx Congestive Heart Failure: Yes Hx Hypercholesterolemia: Yes Hx Hypertension: Yes - PULMONARY Hx Bronchitis: Yes Hx Pneumonia: No - NEUROLOGICAL Hx Neurological Disorder: No - HEENT Hx HEENT Problems: No - RENAL Hx Chronic Kidney Disease: Yes - ENDOCRINE/METABOLIC Hx Diabetes Mellitus Type 2: Yes - HEMATOLOGICAL/ONCOLOGICAL Hx Anemia: Yes - INTEGUMENTARY Hx Dermatological Problems: Yes Hx Eczema: Yes - MUSCULOSKELETAL/RHEUMATOLOGICAL Hx Falls: Yes - GASTROINTESTINAL Hx Gastrointestinal Disorders: Yes Hx Colostomy: Yes - GENITOURINARY/GYNECOLOGICAL Hx Genitourinary Disorders: Yes (DX: RENAL FAILURE) - PSYCHIATRIC Hx Anxiety: Yes Hx Substance Use: No - SURGICAL HISTORY Hx Surgeries: Yes Hx Amputation: Yes (RBK) Hx Section: Yes Hx Eye Surgery: Yes (INSERT "GAS" BUBBLE BOTH EYES) Hx Tubal Ligation: Yes Hx Vascular Access Device: Yes (R SC HD cath) Other/Comment: I&D GROIN; 12/30/14 LAPAROSCOPIC INSERTION PERITONEAL DIALYSIS CATHETE over right chest. 01/14/15 REVISION DONE OF PERITIONEAL DIALYSIS CATH. - ANESTHESIA Hx Anesthesia: Yes Hx Anesthesia Reactions: No Hx Malignant Hyperthermia: No Meds Allergies/Adverse Reactions: Allergies Allergy/AdvReac Type Severity Reaction Status Date / Time shrimp Allergy Severe RASH Verified 06/13/17 06:10 - Medications Medications: Current Medications Acetaminophen (Tylenol 325mg Tab) 650 mg PO Q8H PRN PRN Reason: Pain, Mild (1-3) or Temp>100.4 Amlodipine Besylate (Norvasc) 2.5 mg PO DAILY [facility] Last Admin: 07/24/17 10:26 Dose: 2.5 mg Aspirin (Ecotrin) 81 mg PO DAILY [facility] Last Admin: 07/24/17 10:25 Dose: 81 mg Carvedilol (Coreg) 12.5 mg PO BID [facility] Last Admin: 07/24/17 10:25 Dose: 12.5 mg Clopidogrel Bisulfate (Plavix) 75 mg PO DAILY [facility] Last Admin: 07/24/17 10:26 Dose: 75 mg Diphenhydramine HCl (Benadryl) 25 mg PO Q12 PRN PRN Reason: Itching / Pruritus Last Admin: 07/24/17 01:01 Dose: 25 mg Famotidine (Pepcid) 20 mg PO DAILY [facility] Last Admin: 07/24/17 10:26 Dose: 20 mg Gabapentin (Neurontin) 100 mg PO QPM [facility] Heparin Sodium (Porcine) (Heparin) 5,000 units SC Q12 [facility] Last Admin: 07/24/17 10:29 Dose: Not Given Insulin Human Regular (Novolin R) 0 unit SC ACHS [facility] PRN Reason: Protocol Last Admin: 07/24/17 12:28 Dose: 2 unit Oxycodone/Acetaminophen (Percocet 5/325 Mg Tab) 1 tab PO Q12 PRN PRN Reason: Pain, moderate (4-7) Stop: 07/27/17 10:01 Last Admin: 07/24/17 13:31 Dose: 1 tab Pneumococcal Polyvalent Vaccine (Pneumovax 23 Vaccine) 0.5 ml IM .ONCE ONE Stop: 07/26/17 10:01 Vitamin B Complex/Vit C/Folic Acid (Nephro-Cony) 1 tab PO DAILY [facility] Last Admin: 07/24/17 10:26 Dose: 1 tab Physical Exam - Constitutional Appears: No Acute Distress, Chronically Ill - Head Exam Head Exam: ATRAUMATIC, NORMAL INSPECTION - Eye Exam Eye Exam: EOMI, Normal appearance - Neck Exam Neck exam: Positive for: Normal Inspection. Negative for: Tenderness - Respiratory Exam Respiratory Exam: Clear to Auscultation Bilateral, NORMAL BREATHING PATTERN - Cardiovascular Exam Cardiovascular Exam: REGULAR RHYTHM, +S1 - GI/Abdominal Exam GI & Abdominal Exam: Soft, Tenderness - Extremities Exam Extremities exam: Positive for: calf tenderness, tenderness - Psychiatric Exam Psychiatric exam: Anxious, Flat Affect Results - Vital Signs Recent Vital Signs: Last Vital Signs Temp 98.7 F 07/24/17 08:46 Pulse 100 H 07/24/17 08:46 Resp 20 07/24/17 08:46 BP 161/87 H 07/24/17 10:25 Pulse Ox 98 07/24/17 08:46 - Labs Result Diagrams: 07/24/17 00:35 07/24/17 00:32 Labs: Laboratory Results - last 24 hr 07/24/17 07/24/17 07/24/17 00:32 00:35 07:32 WBC 7.1 RBC 3.75 L Hgb 12.0 D Hct 37.0 MCV 98.8 MCH 32.1 H MCHC 32.5 L RDW 18.9 H Plt Count 231 MPV 9.6 Neut % (Auto) 57.3 Lymph % (Auto) 32.0 [place] % (Auto) 8.5 Eos % (Auto) 1.4 Baso % (Auto) 0.8 Neut # (Auto) 4.1 Lymph # (Auto) 2.3 [place] # (Auto) 0.6 Eos # (Auto) 0.1 Baso # (Auto) 0.1 Sodium 134 Potassium 4.1 Chloride 89 L Carbon Dioxide 31 H Anion Gap 18 BUN 11 Creatinine 4.3 H Est GFR ( Amer) 13 Est GFR (Non-Af Amer) 11 POC Glucose (mg/dL) 172 H Random Glucose 166 H Calcium 9.7 Total Bilirubin 0.6 AST 21 ALT 17 Alkaline Phosphatase 95 Total Protein 8.5 H Albumin 4.2 Globulin 4.4 H Albumin/Globulin Ratio 0.9 L 07/24/17 11:21 WBC RBC Hgb Hct MCV MCH MCHC RDW Plt Count MPV Neut % (Auto) Lymph % (Auto) [place] % (Auto) Eos % (Auto) Baso % (Auto) Neut # (Auto) Lymph # (Auto) [place] # (Auto) Eos # (Auto) Baso # (Auto) Sodium Potassium Chloride Carbon Dioxide Anion Gap BUN Creatinine Est GFR ( Amer) Est GFR (Non-Af Amer) POC Glucose (mg/dL) 223 H Random Glucose Calcium Total Bilirubin AST ALT Alkaline Phosphatase Total Protein Albumin Globulin Albumin/Globulin Ratio Assessment & Plan (1) Colostomy complication, unspecified Status: Acute (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
--- NOTE | 2017-07-24 16:21 | CP.PCM.CON ---
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 Our team has been consulted to evaluate the patient with sigmoidoscopy prior to surgical intervention. The patient currently has no complaints. Her iliostomy has been functioning without issue and patient denies any recent fever, chills, nausea, vomiting, hematochezia, melena, abdominal pain. PMHx: See HPI PSHx: See HPI - in addition, , R fem-pop bypass 2016, R [employer] cath and L common iliac stent 11/2016, R partial foot amputation 02/2017 FHx: Discussed with patient and she denies any significant family history Social: Prior tobacco, EtOH and illicit drug use; no prior IVDU Endo: No prior endoscopic procedures Past Patient History - Infectious Disease Hx of Infectious Diseases: None - Past Medical History & Family History Past Medical History?: Yes - Past Social History Smoking Status: Former Smoker Chewing Tobacco Use: No Cigar Use: No Alcohol: None Drugs: Denies Home Situation {Lives}: [facility] - CARDIAC Hx Congestive Heart Failure: Yes Hx Hypercholesterolemia: Yes Hx Hypertension: Yes - PULMONARY Hx Bronchitis: Yes Hx Pneumonia: No - NEUROLOGICAL Hx Neurological Disorder: No - HEENT Hx HEENT Problems: No - RENAL Hx Chronic Kidney Disease: Yes - ENDOCRINE/METABOLIC Hx Diabetes Mellitus Type 2: Yes - HEMATOLOGICAL/ONCOLOGICAL Hx Anemia: Yes - INTEGUMENTARY Hx Dermatological Problems: Yes Hx Eczema: Yes - MUSCULOSKELETAL/RHEUMATOLOGICAL Hx Falls: Yes - GASTROINTESTINAL Hx Gastrointestinal Disorders: Yes Hx Colostomy: Yes - GENITOURINARY/GYNECOLOGICAL Hx Genitourinary Disorders: Yes (DX: RENAL FAILURE) - PSYCHIATRIC Hx Anxiety: Yes Hx Substance Use: No - SURGICAL HISTORY Hx Surgeries: Yes Hx Amputation: Yes (RBK) Hx Section: Yes Hx Eye Surgery: Yes (INSERT "GAS" BUBBLE BOTH EYES) Hx Tubal Ligation: Yes Hx Vascular Access Device: Yes (R SC HD cath) Other/Comment: I&D GROIN; 12/30/14 LAPAROSCOPIC INSERTION PERITONEAL DIALYSIS CATHETE over right chest. 01/14/15 REVISION DONE OF PERITIONEAL DIALYSIS CATH. - ANESTHESIA Hx Anesthesia: Yes Hx Anesthesia Reactions: No Hx Malignant Hyperthermia: No Meds Allergies/Adverse Reactions: Allergies Allergy/AdvReac Type Severity Reaction Status Date / Time shrimp Allergy Severe RASH Verified 06/13/17 06:10 - Medications Medications: Current Medications Acetaminophen (Tylenol 325mg Tab) 650 mg PO Q8H PRN PRN Reason: Pain, Mild (1-3) or Temp>100.4 Amlodipine Besylate (Norvasc) 2.5 mg PO DAILY [facility] Last Admin: 07/24/17 10:26 Dose: 2.5 mg Aspirin (Ecotrin) 81 mg PO DAILY [facility] Last Admin: 07/24/17 10:25 Dose: 81 mg Carvedilol (Coreg) 12.5 mg PO BID [facility] Last Admin: 07/24/17 10:25 Dose: 12.5 mg Clopidogrel Bisulfate (Plavix) 75 mg PO DAILY [facility] Last Admin: 07/24/17 10:26 Dose: 75 mg Diphenhydramine HCl (Benadryl) 25 mg PO Q12 PRN PRN Reason: Itching / Pruritus Last Admin: 07/24/17 01:01 Dose: 25 mg Famotidine (Pepcid) 20 mg PO DAILY [facility] Last Admin: 07/24/17 10:26 Dose: 20 mg Gabapentin (Neurontin) 100 mg PO QPM [facility] Heparin Sodium (Porcine) (Heparin) 5,000 units SC Q12 [facility] Last Admin: 07/24/17 10:29 Dose: Not Given Insulin Human Regular (Novolin R) 0 unit SC ACHS [facility] PRN Reason: Protocol Last Admin: 07/24/17 12:28 Dose: 2 unit Oxycodone/Acetaminophen (Percocet 5/325 Mg Tab) 1 tab PO Q12 PRN PRN Reason: Pain, moderate (4-7) Stop: 07/27/17 10:01 Last Admin: 07/24/17 13:31 Dose: 1 tab Pneumococcal Polyvalent Vaccine (Pneumovax 23 Vaccine) 0.5 ml IM .ONCE ONE Stop: 07/26/17 10:01 Vitamin B Complex/Vit C/Folic Acid (Nephro-Cony) 1 tab PO DAILY [facility] Last Admin: 07/24/17 10:26 Dose: 1 tab Physical Exam - Constitutional Appears: Non-toxic, No Acute Distress, Chronically Ill - Eye Exam Eye Exam: EOMI, PERRL - ENT Exam ENT Exam: Mucous Membranes Moist - Respiratory Exam Respiratory Exam: Clear to Auscultation Bilateral. absent: Rales, Rhonchi, Wheezes - Cardiovascular Exam Cardiovascular Exam: RRR, +S1, +S2 - GI/Abdominal Exam GI & Abdominal Exam: Normal Bowel Sounds, Soft. absent: Distended, Firm, Guarding, Organomegaly, Rigid, Tenderness Additional comments: RLQ iliostomy with green liquid stool - Extremities Exam Additional comments: B/L BKA - Neurological Exam Neurological exam: Alert, Oriented x3 - Psychiatric Exam Psychiatric exam: Normal Affect, Normal Mood - Skin Skin Exam: Dry, Warm Results - Vital Signs Recent Vital Signs: Last Vital Signs Temp 98.7 F 07/24/17 08:46 Pulse 100 H 07/24/17 08:46 Resp 20 07/24/17 08:46 BP 161/87 H 07/24/17 10:25 Pulse Ox 98 07/24/17 08:46 - Labs Result Diagrams: 07/24/17 00:35 07/24/17 00:32 Labs: Laboratory Results - last 24 hr 07/24/17 07/24/17 07/24/17 00:32 00:35 07:32 WBC 7.1 RBC 3.75 L Hgb 12.0 D Hct 37.0 MCV 98.8 MCH 32.1 H MCHC 32.5 L RDW 18.9 H Plt Count 231 MPV 9.6 Neut % (Auto) 57.3 Lymph % (Auto) 32.0 [place] % (Auto) 8.5 Eos % (Auto) 1.4 Baso % (Auto) 0.8 Neut # (Auto) 4.1 Lymph # (Auto) 2.3 [place] # (Auto) 0.6 Eos # (Auto) 0.1 Baso # (Auto) 0.1 Sodium 134 Potassium 4.1 Chloride 89 L Carbon Dioxide 31 H Anion Gap 18 BUN 11 Creatinine 4.3 H Est GFR ( Amer) 13 Est GFR (Non-Af Amer) 11 POC Glucose (mg/dL) 172 H Random Glucose 166 H Calcium 9.7 Total Bilirubin 0.6 AST 21 ALT 17 Alkaline Phosphatase 95 Total Protein 8.5 H Albumin 4.2 Globulin 4.4 H Albumin/Globulin Ratio 0.9 L 07/24/17 11:21 WBC RBC Hgb Hct MCV MCH MCHC RDW Plt Count MPV Neut % (Auto) Lymph % (Auto) [place] % (Auto) Eos % (Auto) Baso % (Auto) Neut # (Auto) Lymph # (Auto) [place] # (Auto) Eos # (Auto) Baso # (Auto) Sodium Potassium Chloride Carbon Dioxide Anion Gap BUN Creatinine Est GFR ( Amer) Est GFR (Non-Af Amer) POC Glucose (mg/dL) 223 H Random Glucose Calcium Total Bilirubin AST ALT Alkaline Phosphatase Total Protein Albumin Globulin Albumin/Globulin Ratio Assessment & Plan - Assessment and Plan (Free Text) Assessment: Patient is a 51yo female with PMHx significant for recent hospitalization for acute peritonitis with removal of her peritoneal dialysis port, severe colonic obstruction/constipation requiring subtotal colectomy and ileostomy formation as well as 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 -S/P subtotal colectomy with plan for re-anastamosis -ESRD on HD -DM -HTN -PVD -Dyslipidemia Plan: -Plan for flex sigmoidoscopy tomorrow -NPO past midnight -Findings to be discussed with surgical service so they can prepare for surgical re-anastamosis - Date & Time Date: 07/24/17 Time: 14:00 <Olman Lao - Last Filed: 07/24/17 19:18> Meds - Medications Medications: Current Medications Acetaminophen (Tylenol 325mg Tab) 650 mg PO Q8H PRN PRN Reason: Pain, Mild (1-3) or Temp>100.4 Amlodipine Besylate (Norvasc) 2.5 mg PO DAILY [facility] Last Admin: 07/24/17 10:26 Dose: 2.5 mg Aspirin (Ecotrin) 81 mg PO DAILY [facility] Last Admin: 07/24/17 10:25 Dose: 81 mg Carvedilol (Coreg) 12.5 mg PO BID [facility] Last Admin: 02/21/18 18:03 Dose: 12.5 mg Clopidogrel Bisulfate (Plavix) 75 mg PO DAILY [facility] Last Admin: 07/24/17 10:26 Dose: 75 mg Diphenhydramine HCl (Benadryl) 25 mg PO Q12 PRN PRN Reason: Itching / Pruritus Last Admin: 07/24/17 01:01 Dose: 25 mg Famotidine (Pepcid) 20 mg PO DAILY [facility] Last Admin: 07/24/17 10:26 Dose: 20 mg Gabapentin (Neurontin) 100 mg PO QPM [facility] Last Admin: 07/24/17 17:59 Dose: 100 mg Heparin Sodium (Porcine) (Heparin) 5,000 units SC Q12 [facility] Last Admin: 07/24/17 10:29 Dose: Not Given Insulin Human Regular (Novolin R) 0 unit SC ACHS [facility] PRN Reason: Protocol Last Admin: 07/24/17 17:28 Dose: 2 unit Oxycodone/Acetaminophen (Percocet 5/325 Mg Tab) 1 tab PO Q12 PRN PRN Reason: Pain, moderate (4-7) Stop: 07/27/17 10:01 Last Admin: 07/24/17 13:31 Dose: 1 tab Pneumococcal Polyvalent Vaccine (Pneumovax 23 Vaccine) 0.5 ml IM .ONCE ONE Stop: 07/26/17 10:01 Vitamin B Complex/Vit C/Folic Acid (Nephro-Cony) 1 tab PO DAILY [facility] Last Admin: 07/24/17 10:26 Dose: 1 tab Results - Vital Signs Recent Vital Signs: Last Vital Signs Temp 98.3 F 07/24/17 16:00 Pulse 88 07/24/17 16:00 Resp 20 07/24/17 16:00 BP 112/70 07/24/17 18:03 Pulse Ox 100 07/24/17 16:00 - Labs Result Diagrams: 07/24/17 00:35 07/24/17 00:32 Labs: Laboratory Results - last 24 hr 07/24/17 07/24/17 07/24/17 00:32 00:35 07:32 WBC 7.1 RBC 3.75 L Hgb 12.0 D Hct 37.0 MCV 98.8 MCH 32.1 H MCHC 32.5 L RDW 18.9 H Plt Count 231 MPV 9.6 Neut % (Auto) 57.3 Lymph % (Auto) 32.0 [place] % (Auto) 8.5 Eos % (Auto) 1.4 Baso % (Auto) 0.8 Neut # (Auto) 4.1 Lymph # (Auto) 2.3 [place] # (Auto) 0.6 Eos # (Auto) 0.1 Baso # (Auto) 0.1 Sodium 134 Potassium 4.1 Chloride 89 L Carbon Dioxide 31 H Anion Gap 18 BUN 11 Creatinine 4.3 H Est GFR ( Amer) 13 Est GFR (Non-Af Amer) 11 POC Glucose (mg/dL) 172 H Random Glucose 166 H Calcium 9.7 Total Bilirubin 0.6 AST 21 ALT 17 Alkaline Phosphatase 95 Total Protein 8.5 H Albumin 4.2 Globulin 4.4 H Albumin/Globulin Ratio 0.9 L 07/24/17 11:21 WBC RBC Hgb Hct MCV MCH MCHC RDW Plt Count MPV Neut % (Auto) Lymph % (Auto) [place] % (Auto) Eos % (Auto) Baso % (Auto) Neut # (Auto) Lymph # (Auto) [place] # (Auto) Eos # (Auto) Baso # (Auto) Sodium Potassium Chloride Carbon Dioxide Anion Gap BUN Creatinine Est GFR ( Amer) Est GFR (Non-Af Amer) POC Glucose (mg/dL) 223 H Random Glucose Calcium Total Bilirubin AST ALT Alkaline Phosphatase Total Protein Albumin Globulin Albumin/Globulin Ratio Attending/Attestation - Attestation I have personally seen and examined this patient.: Yes I have fully participated in the care of the patient.: Yes I have reviewed all pertinent clinical information: Yes Notes (Text): 07/24/17 19:16 51 year old female with h/o ESRD perviously on PD complicated by bacterial peritonitis, colonic perforation requiring removal of PD cath, colectomy, and end ileostomy. We are consulted for preop sigmoidoscopy prior to re- anastamosis. Can have the patient get a sigmoidoscopy electively, tomorrow schedule permitting.
--- NOTE | 2017-07-24 21:39 | CP.PCM.CON ---
History of Present Illness - History of Present Illness History of Present Illness: General Surgery- Dr. Clark 51F well known to our service w/ significant PMHx for acute peritonitis, removal of dialysis port, subtotal colectomy w/ end ileostomy, b/l BKA 2/2 gangrene, admitted for abdominal pain and ileostomy reversal. Surgery was consulted to asses the patient for reversal of ileostomy. During encounter patient has no acute complaints. 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, iliac stent (2017) ALL: shrimp Socialhx: former tobacco use, denies etoh, recreational drug use Review of Systems - Review of Systems All systems: reviewed and no additional remarkable complaints except - Constitutional Constitutional: As Per HPI Past Patient History - Infectious Disease Hx of Infectious Diseases: None - Past Medical History & Family History Past Medical History?: Yes - Past Social History Smoking Status: Former Smoker Chewing Tobacco Use: No Cigar Use: No Alcohol: None Drugs: Denies Home Situation {Lives}: Longterm - CARDIAC Hx Congestive Heart Failure: Yes Hx Hypercholesterolemia: Yes Hx Hypertension: Yes - PULMONARY Hx Bronchitis: Yes Hx Pneumonia: No - NEUROLOGICAL Hx Neurological Disorder: No - HEENT Hx HEENT Problems: No - RENAL Hx Chronic Kidney Disease: Yes - ENDOCRINE/METABOLIC Hx Diabetes Mellitus Type 2: Yes - HEMATOLOGICAL/ONCOLOGICAL Hx Anemia: Yes - INTEGUMENTARY Hx Dermatological Problems: Yes Hx Eczema: Yes - MUSCULOSKELETAL/RHEUMATOLOGICAL Hx Falls: Yes - GASTROINTESTINAL Hx Gastrointestinal Disorders: Yes Hx Colostomy: Yes - GENITOURINARY/GYNECOLOGICAL Hx Genitourinary Disorders: Yes (DX: RENAL FAILURE) - PSYCHIATRIC Hx Anxiety: Yes Hx Substance Use: No - SURGICAL HISTORY Hx Surgeries: Yes Hx Amputation: Yes (RBK) Hx Section: Yes Hx Eye Surgery: Yes (INSERT "GAS" BUBBLE BOTH EYES) Hx Tubal Ligation: Yes Hx Vascular Access Device: Yes (R SC HD cath) Other/Comment: I&D GROIN; 12/30/14 LAPAROSCOPIC INSERTION PERITONEAL DIALYSIS CATHETE over right chest. 01/14/15 REVISION DONE OF PERITIONEAL DIALYSIS CATH. - ANESTHESIA Hx Anesthesia: Yes Hx Anesthesia Reactions: No Hx Malignant Hyperthermia: No Meds Allergies/Adverse Reactions: Allergies Allergy/AdvReac Type Severity Reaction Status Date / Time shrimp Allergy Severe RASH Verified 06/13/17 06:10 - Medications Medications: Current Medications Acetaminophen (Tylenol 325mg Tab) 650 mg PO Q8H PRN PRN Reason: Pain, Mild (1-3) or Temp>100.4 Amlodipine Besylate (Norvasc) 2.5 mg PO DAILY [facility] Last Admin: 07/24/17 10:26 Dose: 2.5 mg Aspirin (Ecotrin) 81 mg PO DAILY [facility] Last Admin: 07/24/17 10:25 Dose: 81 mg Carvedilol (Coreg) 12.5 mg PO BID [facility] Last Admin: 07/24/17 18:03 Dose: 12.5 mg Clopidogrel Bisulfate (Plavix) 75 mg PO DAILY [facility] Last Admin: 07/24/17 10:26 Dose: 75 mg Diphenhydramine HCl (Benadryl) 25 mg PO Q12 PRN PRN Reason: Itching / Pruritus Last Admin: 07/24/17 01:01 Dose: 25 mg Famotidine (Pepcid) 20 mg PO DAILY [facility] Last Admin: 07/24/17 10:26 Dose: 20 mg Gabapentin (Neurontin) 100 mg PO QPM [facility] Last Admin: 07/24/17 17:59 Dose: 100 mg Heparin Sodium (Porcine) (Heparin) 5,000 units SC Q12 [facility] Last Admin: 07/24/17 21:23 Dose: Not Given Insulin Human Regular (Novolin R) 0 unit SC ACHS [facility] PRN Reason: Protocol Last Admin: 07/24/17 17:28 Dose: 2 unit Oxycodone/Acetaminophen (Percocet 5/325 Mg Tab) 1 tab PO Q12 PRN PRN Reason: Pain, moderate (4-7) Stop: 07/27/17 10:01 Last Admin: 07/24/17 13:31 Dose: 1 tab Pneumococcal Polyvalent Vaccine (Pneumovax 23 Vaccine) 0.5 ml IM .ONCE ONE Stop: 07/26/17 10:01 Vitamin B Complex/Vit C/Folic Acid (Nephro-Cony) 1 tab PO DAILY [facility] Last Admin: 07/24/17 10:26 Dose: 1 tab Physical Exam - Constitutional Appears: Non-toxic, No Acute Distress Additional comments: resting comfortably during encounter - Head Exam Head Exam: ATRAUMATIC - Respiratory Exam Respiratory Exam: NORMAL BREATHING PATTERN. absent: Accessory Muscle Use, Respiratory Distress - Cardiovascular Exam Cardiovascular Exam: +S1, +S2. absent: Bradycardia, Tachycardia - GI/Abdominal Exam GI & Abdominal Exam: Soft. absent: Distended, Firm, Guarding, Rigid Additional comments: ileostomy good output, pink, patent - Extremities Exam Additional comments: b/l BKA - Neurological Exam Neurological exam: Alert, Oriented x3 - Skin Skin Exam: Intact, Warm Results - Vital Signs Recent Vital Signs: Last Vital Signs Temp 98.3 F 07/24/17 16:00 Pulse 88 07/24/17 16:00 Resp 20 07/24/17 16:00 BP 112/70 07/24/17 18:03 Pulse Ox 100 07/24/17 16:00 - Labs Result Diagrams: 07/24/17 00:35 07/24/17 00:32 Labs: Laboratory Results - last 24 hr 07/24/17 07/24/17 07/24/17 00:32 00:35 07:32 WBC 7.1 RBC 3.75 L Hgb 12.0 D Hct 37.0 MCV 98.8 MCH 32.1 H MCHC 32.5 L RDW 18.9 H Plt Count 231 MPV 9.6 Neut % (Auto) 57.3 Lymph % (Auto) 32.0 [place] % (Auto) 8.5 Eos % (Auto) 1.4 Baso % (Auto) 0.8 Neut # (Auto) 4.1 Lymph # (Auto) 2.3 [place] # (Auto) 0.6 Eos # (Auto) 0.1 Baso # (Auto) 0.1 Sodium 134 Potassium 4.1 Chloride 89 L Carbon Dioxide 31 H Anion Gap 18 BUN 11 Creatinine 4.3 H Est GFR ( Amer) 13 Est GFR (Non-Af Amer) 11 POC Glucose (mg/dL) 172 H Random Glucose 166 H Calcium 9.7 Total Bilirubin 0.6 AST 21 ALT 17 Alkaline Phosphatase 95 Total Protein 8.5 H Albumin 4.2 Globulin 4.4 H Albumin/Globulin Ratio 0.9 L 07/24/17 07/24/17 11:21 16:39 WBC RBC Hgb Hct MCV MCH MCHC RDW Plt Count MPV Neut % (Auto) Lymph % (Auto) [place] % (Auto) Eos % (Auto) Baso % (Auto) Neut # (Auto) Lymph # (Auto) [place] # (Auto) Eos # (Auto) Baso # (Auto) Sodium Potassium Chloride Carbon Dioxide Anion Gap BUN Creatinine Est GFR ( Amer) Est GFR (Non-Af Amer) POC Glucose (mg/dL) 223 H 201 H Random Glucose Calcium Total Bilirubin AST ALT Alkaline Phosphatase Total Protein Albumin Globulin Albumin/Globulin Ratio Assessment & Plan - Assessment and Plan (Free Text) Assessment: 51F s/p subtotal colectomy w/ end ileostomy; evaluation of reversal Plan: - c/s GI- all recs appreciated; plan for flex sig tomorrow - HD regiment as scheduled - No surgical intervention during this hospital visit; will need to medically optimize - [facility]
--- NOTE | 2017-07-24 23:28 | CP.PCM.HP ---
History of Present Illness - History of Present Illness History of Present Illness: Chief complaint: Colostomy drainage, uncontrolled History of present illness: 51-year-old female with a history of hypertension, end-stage renal disease, was on peritoneal dialysis, converted to hemodialysis, hypercholesterolemia, diabetes, history of pneumonia, history of peripheral vascular disease is clinically looks. Patient had a bilateral leg gangrene, complicated with bilateral below-knee amputation. Patient wound healing well. She came to the office with increasing drainage from the colostomy. Patient does not have any other major active symptoms, including pain. pt is having increasing discomfort and pain in the both hands. Patient was in rehabilitation recently. Past medical history: As noted above Surgical history: Patient has a hemodialysis catheter and the right internal jugular vein. Bilateral below-knee amputation. Patient has severe constipation, complicated with colitis, impending rupture, underwent near total colectomy, and colostomy. Allergies: No known drug allergy Personal history: Used to be a smoker in the past, also was using drugs in the past. Denies any alcohol Review of systems Currently having no headache, no chest pain or shortness of breath. Right hemodialysis catheter in the internal jugular vein. Colostomy. Below-knee limitation bilaterally. Vital signs reviewed No neck vein distention noted Chest good air entry bilaterally, no wheezing or rales noted CVS regular heart sound, no murmur noted Abdomen soft, nontender. 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 [employer] alert awake oriented -3, no functional neurological deficit Patient's current labs revealed nonspecific. Patient received hemodialysis yesterday, tomorrow she will get hemodialysis again Renal and a surgical consultation appreciated Assessment and recommendation: 51-year-old female with a history of hypertension, ESRD, on hemodialysis, diabetes, hypertension, hypercholesterolemia, peripheral vascular disease, ischemic legs, status postsurgery. Status post a colostomy, and a colectomy admitted now with increasing colostomy output. And possibly reversal. We'll continue the hemodialysis. Evaluation by GI for sigmoidoscopy. On the possibility of recent. Glucose control, no antibiotic is at this time will follow the patient Present on Admission - Present on Admission Any Indicators Present on Admission: No History of DVT/PE: No History of Uncontrolled Diabetes: No Urinary Catheter: No Decubitus Ulcer Present: No Past Patient History - Infectious Disease Hx of Infectious Diseases: None - Past Medical History & Family History Past Medical History?: Yes - Past Social History Smoking Status: Former Smoker Chewing Tobacco Use: No Cigar Use: No Alcohol: None Drugs: Denies Home Situation {Lives}: Custodial - CARDIAC Hx Congestive Heart Failure: Yes Hx Hypercholesterolemia: Yes Hx Hypertension: Yes - PULMONARY Hx Bronchitis: Yes Hx Pneumonia: No - NEUROLOGICAL Hx Neurological Disorder: No - HEENT Hx HEENT Problems: No - RENAL Hx Chronic Kidney Disease: Yes - ENDOCRINE/METABOLIC Hx Diabetes Mellitus Type 2: Yes - HEMATOLOGICAL/ONCOLOGICAL Hx Anemia: Yes - INTEGUMENTARY Hx Dermatological Problems: Yes Hx Eczema: Yes - MUSCULOSKELETAL/RHEUMATOLOGICAL Hx Falls: Yes - GASTROINTESTINAL Hx Gastrointestinal Disorders: Yes Hx Colostomy: Yes - GENITOURINARY/GYNECOLOGICAL Hx Genitourinary Disorders: Yes (DX: RENAL FAILURE) - PSYCHIATRIC Hx Anxiety: Yes Hx Substance Use: No - SURGICAL HISTORY Hx Surgeries: Yes Hx Amputation: Yes (RBK) Hx Section: Yes Hx Eye Surgery: Yes (INSERT "GAS" BUBBLE BOTH EYES) Hx Tubal Ligation: Yes Hx Vascular Access Device: Yes (R SC HD cath) Other/Comment: I&D GROIN; 12/30/14 LAPAROSCOPIC INSERTION PERITONEAL DIALYSIS CATHETE over right chest. 01/14/15 REVISION DONE OF PERITIONEAL DIALYSIS CATH. - ANESTHESIA Hx Anesthesia: Yes Hx Anesthesia Reactions: No Hx Malignant Hyperthermia: No Meds Allergies/Adverse Reactions: Allergies Allergy/AdvReac Type Severity Reaction Status Date / Time shrimp Allergy Severe RASH Verified 06/13/17 06:10 Results - Vital Signs Recent Vital Signs: Last Vital Signs Temp 98.3 F 07/24/17 16:00 Pulse 88 07/24/17 16:00 Resp 20 07/24/17 16:00 BP 112/70 07/24/17 18:03 Pulse Ox 100 07/24/17 16:00 - Labs Result Diagrams: 07/24/17 00:35 07/24/17 00:32 Labs: Laboratory Results - last 24 hr 07/24/17 07/24/17 07/24/17 00:32 00:35 07:32 WBC 7.1 RBC 3.75 L Hgb 12.0 D Hct 37.0 MCV 98.8 MCH 32.1 H MCHC 32.5 L RDW 18.9 H Plt Count 231 MPV 9.6 Neut % (Auto) 57.3 Lymph % (Auto) 32.0 [place] % (Auto) 8.5 Eos % (Auto) 1.4 Baso % (Auto) 0.8 Neut # (Auto) 4.1 Lymph # (Auto) 2.3 [place] # (Auto) 0.6 Eos # (Auto) 0.1 Baso # (Auto) 0.1 Sodium 134 Potassium 4.1 Chloride 89 L Carbon Dioxide 31 H Anion Gap 18 BUN 11 Creatinine 4.3 H Est GFR ( Amer) 13 Est GFR (Non-Af Amer) 11 POC Glucose (mg/dL) 172 H Random Glucose 166 H Calcium 9.7 Total Bilirubin 0.6 AST 21 ALT 17 Alkaline Phosphatase 95 Total Protein 8.5 H Albumin 4.2 Globulin 4.4 H Albumin/Globulin Ratio 0.9 L 07/24/17 07/24/17 11:21 16:39 WBC RBC Hgb Hct MCV MCH MCHC RDW Plt Count MPV Neut % (Auto) Lymph % (Auto) [place] % (Auto) Eos % (Auto) Baso % (Auto) Neut # (Auto) Lymph # (Auto) [place] # (Auto) Eos # (Auto) Baso # (Auto) Sodium Potassium Chloride Carbon Dioxide Anion Gap BUN Creatinine Est GFR ( Amer) Est GFR (Non-Af Amer) POC Glucose (mg/dL) 223 H 201 H Random Glucose Calcium Total Bilirubin AST ALT Alkaline Phosphatase Total Protein Albumin Globulin Albumin/Globulin Ratio
[2017-07-25] MEDS: Oxycodone/Acetaminophen 5/325 mg Tab PO PRN ×2 (00:35→17:28)
[2017-07-25] MEDS: (Novolin R) Insulin Human Regular 100 units/ml vial SC SCH ×4 (08:00→21:58)
[2017-07-25 09:50] LABS: BASO # 0.1 K/uL (0.0-0.2); BASO % 1.1 % (0.0-2.0); EOS # 0.1 K/uL (0.0-0.7); EOS % 1.4 % (0.0-4.0); HEMOGLOBIN 11.2 g/dL (11.0-16.0); LYMPH # 1.6 K/uL (1.0-4.3); LYMPH % 24.5 % (20.0-40.0); MEAN CELL VOLUME 99.1 fL (81.0-99.0); MEAN CORPUSCULAR HEMOGLOBIN 31.9 pg (27.0-31.0); MEAN CORPUSCULAR HGB CONC 32.2 g/dL (33.0-37.0); MEAN PLATELET VOLUME 10.1 fL (7.2-11.7); MONO # 0.5 K/uL (0.0-0.8); MONO % 8.4 % (0.0-10.0); NEUT # 4.2 K/uL (1.8-7.0); NEUT % 64.6 % (50.0-75.0); RBC 3.49 Mil/uL (3.80-5.20); RED CELL DISTRIBUTION WIDTH 18.1 % (11.5-14.5); WHITE BLOOD COUNT 6.5 K/uL (4.8-10.8)
[2017-07-25 09:57] LABS: PROTHROMBIN TIME 10.8 SECONDS (9.7-12.2)
--- NOTE | 2017-07-25 09:59 | CP.PCM.PN ---
Subjective - Date & Time of Evaluation Date of Evaluation: 07/25/17 Time of Evaluation: 09:57 - Subjective Subjective: seen on dialysis BP better controlled for flex-sig today alert; generally feels better- no CP, SOB, diarrhea, f, chills Objective - Vital Signs/Intake and Output Vital Signs (last 24 hours): Temp Pulse Resp BP Pulse Ox 97.7 F 83 18 119/65 100 07/25/17 09:10 07/25/17 09:10 07/25/17 09:10 07/25/17 09:40 07/25/17 09:10 Intake and Output: 07/25/17 07/25/17 06:59 18:59 Intake Total 400 Output Total 600 Balance -200 - Medications Medications: Current Medications Acetaminophen (Tylenol 325mg Tab) 650 mg PO Q8H PRN PRN Reason: Pain, Mild (1-3) or Temp>100.4 Amlodipine Besylate (Norvasc) 2.5 mg PO DAILY [facility] Last Admin: 07/24/17 10:26 Dose: 2.5 mg Aspirin (Ecotrin) 81 mg PO DAILY [facility] Last Admin: 07/24/17 10:25 Dose: 81 mg Carvedilol (Coreg) 12.5 mg PO BID [facility] Last Admin: 07/24/17 18:03 Dose: 12.5 mg Clopidogrel Bisulfate (Plavix) 75 mg PO DAILY [facility] Last Admin: 07/24/17 10:26 Dose: 75 mg Diphenhydramine HCl (Benadryl) 25 mg PO Q12 PRN PRN Reason: Itching / Pruritus Last Admin: 07/24/17 01:01 Dose: 25 mg Famotidine (Pepcid) 20 mg PO DAILY [facility] Last Admin: 07/24/17 10:26 Dose: 20 mg Gabapentin (Neurontin) 100 mg PO QPM [facility] Last Admin: 07/24/17 17:59 Dose: 100 mg Heparin Sodium (Porcine) (Heparin) 5,000 units SC Q12 [facility] Last Admin: 07/24/17 21:23 Dose: Not Given Insulin Human Regular (Novolin R) 0 unit SC ACHS [facility] PRN Reason: Protocol Last Admin: 07/25/17 08:00 Dose: Not Given Oxycodone/Acetaminophen (Percocet 5/325 Mg Tab) 1 tab PO Q12 PRN PRN Reason: Pain, moderate (4-7) Stop: 07/27/17 10:01 Last Admin: 07/25/17 00:35 Dose: 1 tab Pneumococcal Polyvalent Vaccine (Pneumovax 23 Vaccine) 0.5 ml IM .ONCE ONE Stop: 07/26/17 10:01 Vitamin B Complex/Vit C/Folic Acid (Nephro-Cony) 1 tab PO DAILY [facility] Last Admin: 07/24/17 10:26 Dose: 1 tab - Labs Labs: 07/25/17 09:40 07/24/17 00:32 - Constitutional Appears: No Acute Distress, Chronically Ill - Eye Exam Eye Exam: EOMI, Normal appearance - Neck Exam Neck Exam: Normal Inspection. absent: Tenderness - Respiratory Exam Respiratory Exam: Clear to Ausculation Bilateral, NORMAL BREATHING PATTERN - Cardiovascular Exam Cardiovascular Exam: REGULAR RHYTHM, +S1 - GI/Abdominal Exam GI & Abdominal Exam: Soft. absent: Tenderness - Extremities Exam Extremities Exam: Normal Inspection. absent: Tenderness - Neurological Exam Neurological Exam: Alert, CN II-XII Intact - Skin Skin Exam: Dry, Warm Assessment and Plan (1) Colostomy complication, unspecified Status: Acute (2) Type 1 diabetes mellitus with diabetic nephropathy Status: Acute (3) End stage renal disease Status: Acute - Assessment and Plan (Free Text) Plan: dialysis MWF colonoscopy pending stop amlodipine- BP better
[2017-07-25] MEDS: Multivitamin Vitamin B Complex (Nephro-Vite) Tab PO SCH ×2 (10:05→17:27)
[2017-07-25] MEDS ORDERED: Sodium Chloride 0.45% 1,000 ML IV ONE (13:45)
[2017-07-25] MEDS ORDERED: Propofol 10 mg/ml Inj (20 ML) ONE ×2 (13:46→14:02)
[2017-07-25] MEDS ORDERED: Midazolam 2 MG/2 ML VIAL ONE (14:02)
--- NOTE | 2017-07-25 14:17 | CP.PCM.PN ---
Subjective - Date & Time of Evaluation Date of Evaluation: 07/25/17 Time of Evaluation: 14:14 - Subjective Subjective: Patient seen and examined, resting in bed comfortably. No acute events overnight. She denies abdominal pain, nausea, vomiting, fever/chills. Tolerating PO diet without difficulty. Objective - Vital Signs/Intake and Output Vital Signs (last 24 hours): Temp Pulse Resp BP Pulse Ox 96.8 F L 89 18 167/55 H 100 07/25/17 13:45 07/25/17 13:45 07/25/17 13:45 07/25/17 13:45 07/25/17 13:45 Intake and Output: 07/25/17 07/25/17 06:59 18:59 Intake Total 400 0 Output Total 600 301 Balance -200 -301 - Medications Medications: Current Medications Acetaminophen (Tylenol 325mg Tab) 650 mg PO Q8H PRN PRN Reason: Pain, Mild (1-3) or Temp>100.4 Aspirin (Ecotrin) 81 mg PO DAILY [facility] Last Admin: 07/25/17 10:05 Dose: Not Given Carvedilol (Coreg) 12.5 mg PO BID [facility] Last Admin: 07/25/17 10:05 Dose: Not Given Clopidogrel Bisulfate (Plavix) 75 mg PO DAILY [facility] Last Admin: 07/25/17 10:05 Dose: Not Given Diphenhydramine HCl (Benadryl) 25 mg PO Q12 PRN PRN Reason: Itching / Pruritus Last Admin: 07/24/17 01:01 Dose: 25 mg Famotidine (Pepcid) 20 mg PO DAILY [facility] Last Admin: 07/25/17 10:05 Dose: Not Given Gabapentin (Neurontin) 100 mg PO QPM [facility] Last Admin: 07/24/17 17:59 Dose: 100 mg Heparin Sodium (Porcine) (Heparin) 5,000 units SC Q12 [facility] Last Admin: 07/25/17 10:05 Dose: Not Given Insulin Human Regular (Novolin R) 0 unit SC ACHS [facility] PRN Reason: Protocol Last Admin: 07/25/17 11:30 Dose: Not Given Oxycodone/Acetaminophen (Percocet 5/325 Mg Tab) 1 tab PO Q12 PRN PRN Reason: Pain, moderate (4-7) Stop: 07/27/17 10:01 Last Admin: 07/25/17 00:35 Dose: 1 tab Pneumococcal Polyvalent Vaccine (Pneumovax 23 Vaccine) 0.5 ml IM .ONCE ONE Stop: 07/26/17 10:01 Vitamin B Complex/Vit C/Folic Acid (Nephro-Cony) 1 tab PO DAILY [facility] Last Admin: 07/25/17 10:05 Dose: Not Given - Labs Labs: 07/25/17 09:40 07/25/17 09:40 PT 10.8 SECONDS (9.7-12.2) 07/25/17 09:40 INR 1.0 07/25/17 09:40 Assessment and Plan - Assessment and Plan (Free Text) Assessment: s/p subtotal colectomy with end ileostomy s/p sigmoidoscopy to 20 cm from anal verge with normal appearing mucosa. Surgical anastomosis not visualized due to presence of copious solid formed fecal content. Plan: - Advance diet as tolerated - Follow up surgical recommendations, case discussed with Dr. Valenzuela - Suggest additional outpatient follow up after surgical reanastomosis is performed - No further planned GI intervention, will sign off case. Please reconsult as necessary, thank you.
--- NOTE | 2017-07-25 21:16 | CP.PCM.PN ---
Subjective - Date & Time of Evaluation Date of Evaluation: 07/25/17 Time of Evaluation: 21:15 - Subjective Subjective: Patient today underwent a sigmoidoscopy. Normal appearing mucosa. Appreciate GI evaluation Patient also had hemodialysis today. Currently feeling better. Complaining of pain in the lower extremity. Bilateral stump looking good On examination: Vital signs reviewed Elevated blood sugar noted, regular heart sound, nontender abdomen Labs reviewed. Nonspecific Assessment and recommendation: 51-year-old female with history of multiple medical problems, diabetes, hypertension, end-stage renal disease on dialysis, peripheral vascular disease. Peripheral vascular disease with bilateral gangrene of the legs, status post bilateral below-knee of amputation. Patient also had a colostomy secondary to impending colon rupture. Patient admitted with the malfunctioning of the colostomy, increasing output noted, currently better. We'll discuss with the surgical team, for possible revision and will plan further therapy Patient will get the hemodialysis again, will talk to the team tomorrow regarding the plan. Objective - Vital Signs/Intake and Output Vital Signs (last 24 hours): Temp Pulse Resp BP Pulse Ox 98 F 85 20 122/88 98 07/25/17 16:18 07/25/17 16:18 07/25/17 16:18 07/25/17 17:27 07/25/17 16:18 Intake and Output: 07/25/17 07/26/17 18:59 06:59 Intake Total 0 Output Total 301 Balance -301 - Medications Medications: Current Medications Acetaminophen (Tylenol 325mg Tab) 650 mg PO Q8H PRN PRN Reason: Pain, Mild (1-3) or Temp>100.4 Aspirin (Ecotrin) 81 mg PO DAILY [facility] Last Admin: 07/25/17 10:05 Dose: Not Given Carvedilol (Coreg) 12.5 mg PO BID [facility] Last Admin: 07/25/17 17:27 Dose: 12.5 mg Clopidogrel Bisulfate (Plavix) 75 mg PO DAILY [facility] Last Admin: 07/25/17 10:05 Dose: Not Given Diphenhydramine HCl (Benadryl) 25 mg PO Q12 PRN PRN Reason: Itching / Pruritus Last Admin: 07/24/17 01:01 Dose: 25 mg Famotidine (Pepcid) 20 mg PO DAILY [facility] Last Admin: 07/25/17 10:05 Dose: Not Given Gabapentin (Neurontin) 100 mg PO QPM [facility] Last Admin: 07/25/17 17:27 Dose: 100 mg Heparin Sodium (Porcine) (Heparin) 5,000 units SC Q12 [facility] Last Admin: 07/25/17 10:05 Dose: Not Given Insulin Human Regular (Novolin R) 0 unit SC ACHS [facility] PRN Reason: Protocol Last Admin: 07/25/17 17:36 Dose: 1 unit Oxycodone/Acetaminophen (Percocet 5/325 Mg Tab) 1 tab PO Q12 PRN PRN Reason: Pain, moderate (4-7) Stop: 07/27/17 10:01 Last Admin: 07/25/17 17:28 Dose: 1 tab Pneumococcal Polyvalent Vaccine (Pneumovax 23 Vaccine) 0.5 ml IM .ONCE ONE Stop: 07/26/17 10:01 Vitamin B Complex/Vit C/Folic Acid (Nephro-Cony) 1 tab PO DAILY [facility] Last Admin: 07/25/17 17:27 Dose: 1 tab - Labs Labs: 07/25/17 09:40 07/25/17 09:40 PT 10.8 SECONDS (9.7-12.2) 07/25/17 09:40 INR 1.0 07/25/17 09:40
[2017-07-25] MEDS: (Lantus) Insulin Glargine, Recombinant SC SCH (21:54)
[2017-07-26] MEDS: Oxycodone/Acetaminophen 5/325 mg Tab PO PRN ×2 (04:25→22:34)
[2017-07-26] MEDS: Multivitamin Vitamin B Complex (Nephro-Vite) Tab PO SCH (09:04)
[2017-07-26] MEDS: (Novolin R) Insulin Human Regular 100 units/ml vial SC SCH ×4 (09:05→21:25)
[2017-07-26] MEDS ORDERED: Influenza Vaccine 60 mcg/0.5 mL SYR (4YR UP) IM ONE (10:00)
[2017-07-26] MEDS ORDERED: Pneumococcal 23-Valent Vaccine IM ONE (10:00)
[2017-07-26] MEDS ORDERED: Promethazine DM 12.5 mg-30 mg/10 ml Syrup PO ONE (12:15)
--- NOTE | 2017-07-26 13:07 | CP.PCM.PN ---
Subjective - Date & Time of Evaluation Date of Evaluation: 07/26/17 Time of Evaluation: 13:05 - Subjective Subjective: s/p dialysis 07/25 BP higher now; carvrdilol restarted s/p colonoscopy- normal tissue decision on colostomy reversal pending- possibly next month feels better otherwise- eating well Objective - Vital Signs/Intake and Output Vital Signs (last 24 hours): Temp Pulse Resp BP Pulse Ox 97.9 F 86 20 163/89 H 96 07/26/17 01:30 07/26/17 01:30 07/26/17 01:30 07/26/17 09:03 07/26/17 01:30 Intake and Output: 07/26/17 07/26/17 06:59 18:59 Intake Total 550 Output Total 450 Balance 100 - Medications Medications: Current Medications Acetaminophen (Tylenol 325mg Tab) 650 mg PO Q8H PRN PRN Reason: Pain, Mild (1-3) or Temp>100.4 Aspirin (Ecotrin) 81 mg PO DAILY [facility] Last Admin: 07/26/17 09:04 Dose: 81 mg Carvedilol (Coreg) 12.5 mg PO BID [facility] Last Admin: 07/26/17 09:03 Dose: 12.5 mg Clopidogrel Bisulfate (Plavix) 75 mg PO DAILY [facility] Last Admin: 07/26/17 09:04 Dose: 75 mg Diphenhydramine HCl (Benadryl) 25 mg PO Q12 PRN PRN Reason: Itching / Pruritus Last Admin: 07/24/17 01:01 Dose: 25 mg Famotidine (Pepcid) 20 mg PO DAILY [facility] Last Admin: 07/26/17 12:37 Dose: 20 mg Gabapentin (Neurontin) 100 mg PO QPM [facility] Last Admin: 07/25/17 17:27 Dose: 100 mg Heparin Sodium (Porcine) (Heparin) 5,000 units SC Q12 [facility] Last Admin: 07/26/17 09:04 Dose: 5,000 units Insulin Glargine (Lantus) 10 unit SC HS [facility] Last Admin: 07/25/17 21:54 Dose: 10 units Insulin Human Regular (Novolin R) 0 unit SC ACHS [facility] PRN Reason: Protocol Last Admin: 07/26/17 12:36 Dose: 2 unit Oxycodone/Acetaminophen (Percocet 5/325 Mg Tab) 1 tab PO Q8 PRN PRN Reason: Pain, moderate (4-7) Stop: 07/28/17 22:01 Last Admin: 07/26/17 04:25 Dose: 1 tab Vitamin B Complex/Vit C/Folic Acid (Nephro-Cony) 1 tab PO DAILY [facility] Last Admin: 07/26/17 09:04 Dose: 1 tab - Labs Labs: 07/25/17 09:40 07/25/17 09:40 PT 10.8 SECONDS (9.7-12.2) 07/25/17 09:40 INR 1.0 07/25/17 09:40 - Constitutional Appears: No Acute Distress, Chronically Ill - Head Exam Head Exam: ATRAUMATIC, NORMAL INSPECTION - Eye Exam Eye Exam: EOMI, Normal appearance - Neck Exam Neck Exam: Normal Inspection. absent: Tenderness - Respiratory Exam Respiratory Exam: Clear to Ausculation Bilateral, NORMAL BREATHING PATTERN - Cardiovascular Exam Cardiovascular Exam: REGULAR RHYTHM, +S1 - GI/Abdominal Exam GI & Abdominal Exam: Soft. absent: Tenderness - Extremities Exam Extremities Exam: Normal Inspection. absent: Tenderness - Neurological Exam Neurological Exam: Awake, CN II-XII Intact - Skin Skin Exam: Dry, Warm Assessment and Plan (1) Colostomy complication, unspecified Status: Acute (2) Type 1 diabetes mellitus with diabetic nephropathy Status: Acute (3) End stage renal disease Status: Acute - Assessment and Plan (Free Text) Plan: Monitor HTN- might need increase in med dosage dialysis TTS await decision on colostomy
--- NOTE | 2017-07-26 13:51 | CP.PCM.DIS ---
Provider - Provider Date of Admission: 07/24/17 11:48 Attending physician: Rod Lord MD Primary care physician: Rod Lord MD Time Spent in preparation of Discharge (in minutes): 5 Hospital Course - Lab Results Lab Results: Most Recent Lab Values WBC 6.5 K/uL (4.8-10.8) 07/25/17 09:40 RBC 3.49 Mil/uL (3.80-5.20) L 07/25/17 09:40 Hgb 11.2 g/dL (11.0-16.0) 07/25/17 09:40 Hct 34.6 % (34.0-47.0) 07/25/17 09:40 MCV 99.1 fL (81.0-99.0) H 07/25/17 09:40 MCH 31.9 pg (27.0-31.0) H 07/25/17 09:40 MCHC 32.2 g/dL (33.0-37.0) L 07/25/17 09:40 RDW 18.1 % (11.5-14.5) H 07/25/17 09:40 Plt Count 213 K/uL (130-400) 07/25/17 09:40 MPV 10.1 fL (7.2-11.7) 07/25/17 09:40 Neut % (Auto) 64.6 % (50.0-75.0) 07/25/17 09:40 Lymph % (Auto) 24.5 % (20.0-40.0) 07/25/17 09:40 [place] % (Auto) 8.4 % (0.0-10.0) 07/25/17 09:40 Eos % (Auto) 1.4 % (0.0-4.0) 07/25/17 09:40 Baso % (Auto) 1.1 % (0.0-2.0) 07/25/17 09:40 Neut # (Auto) 4.2 K/uL (1.8-7.0) 07/25/17 09:40 Lymph # (Auto) 1.6 K/uL (1.0-4.3) 07/25/17 09:40 [place] # (Auto) 0.5 K/uL (0.0-0.8) 07/25/17 09:40 Eos # (Auto) 0.1 K/uL (0.0-0.7) 07/25/17 09:40 Baso # (Auto) 0.1 K/uL (0.0-0.2) 07/25/17 09:40 PT 10.8 SECONDS (9.7-12.2) 07/25/17 09:40 INR 1.0 07/25/17 09:40 Sodium 132 mmol/L (132-148) 07/25/17 09:40 Potassium 4.9 mmol/L (3.6-5.2) 07/25/17 09:40 Chloride 90 mmol/L (98-107) L 07/25/17 09:40 Carbon Dioxide 28 mmol/L (22-30) 07/25/17 09:40 Anion Gap 19 (10-20) 07/25/17 09:40 BUN 30 mg/dL (7-17) H 07/25/17 09:40 Creatinine 7.5 mg/dL (0.7-1.2) H* D 07/25/17 09:40 Est GFR ( Amer) 7 07/25/17 09:40 Est GFR (Non-Af Amer) 6 07/25/17 09:40 POC Glucose (mg/dL) 220 mg/dL (65-110) H 07/26/17 12:06 Random Glucose 303 mg/dL (65-105) H 07/25/17 09:40 Calcium 10.0 mg/dl (8.6-10.4) 07/25/17 09:40 Total Bilirubin 0.6 mg/dL (0.2-1.3) 07/24/17 00:32 AST 21 U/L (14-36) 07/24/17 00:32 ALT 17 U/L (9-52) 07/24/17 00:32 Alkaline Phosphatase 95 U/L (38-126) 07/24/17 00:32 Total Protein 8.5 g/dL (6.3-8.3) H 07/24/17 00:32 Albumin 4.2 g/dL (3.5-5.0) 07/24/17 00:32 Globulin 4.4 gm/dL (2.2-3.9) H 07/24/17 00:32 Albumin/Globulin Ratio 0.9 (1.0-2.1) L 07/24/17 00:32 - Hospital Course Hospital Course: Chief complaint: Colostomy drainage, uncontrolled History of present illness: 51-year-old female with a history of hypertension, end-stage renal disease, was on peritoneal dialysis, converted to hemodialysis, hypercholesterolemia, diabetes, history of pneumonia, history of peripheral vascular disease is clinically looks. Patient had a bilateral leg gangrene, complicated with bilateral below-knee amputation. Patient wound healing well. She came to the office with increasing drainage from the colostomy. Patient does not have any other major active symptoms, including pain. pt is having increasing discomfort and pain in the both hands. Patient was in rehabilitation recently. Past medical history: As noted above Surgical history: Patient has a hemodialysis catheter and the right internal jugular vein. Bilateral below-knee amputation. Patient has severe constipation, complicated with colitis, impending rupture, underwent near total colectomy, and colostomy. Allergies: No known drug allergy Personal history: Used to be a smoker in the past, also was using drugs in the past. Denies any alcohol Review of systems Currently having no headache, no chest pain or shortness of breath. Right hemodialysis catheter in the internal jugular vein. Colostomy. Below-knee limitation bilaterally. Vital signs reviewed No neck vein distention noted Chest good air entry bilaterally, no wheezing or rales noted CVS regular heart sound, no murmur noted Abdomen soft, nontender. 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 Patient received hemodialysis yesterday, tomorrow she will get hemodialysis again Renal and a surgical consultation appreciated Assessment and recommendation: 51-year-old female with a history of hypertension, ESRD, on hemodialysis, diabetes, hypertension, hypercholesterolemia, peripheral vascular disease, ischemic legs, status postsurgery. Status post a colostomy, and a colectomy admitted now with increasing colostomy output. And possibly reversal. We'll continue the hemodialysis. Evaluation by GI for sigmoidoscopy. On the possibility of recent. Glucose control, no antibiotic is at this time will follow the patient Course in the Hospital: Patient was evaluated by the waste collection driver. She underwent upper sigmoidoscopy, showing normal mucosa Patient is now clinical stable. Patient will get the hemodialysis tomorrow. Patient can be discharged home today, and she will follow up as an outpatient for possible elective reversal of colostomy. Continue the current treatment. Medications reviewed. Medications updated. Will follow the patient as an outpatient I spoke to the patient regarding this plan. Outpatient hemoptysis arranged Discharge Exam - Head Exam Head Exam: ATRAUMATIC, NORMAL INSPECTION Discharge Plan - Follow Up Plan Condition: FAIR Disposition: HOME/ ROUTINE Referrals: Rod Lord MD [Primary Care Provider] -
--- NOTE | 2017-07-26 16:20 | CP.PCM.PN ---
Subjective - Date & Time of Evaluation Date of Evaluation: 07/26/17 Time of Evaluation: 16:17 - Subjective Subjective: PT CLEARED FOR D/C HOME TODAY PER DR. CARTER. I SPOKE TO PT WITH DR. SANTIAGO AND HE IS ALSO CLEARING PT FOR D/C HOME TODAY; SHE IS TO F/U WITH HIM IN THE OFFICE WITHIN 7-10 DAYS; HE WILL DISCUSS WITH HER IN OFFICE WHEN TO HAVE REVERSAL OF COLOSTOMY DONE. PT DOES NEED SEVERAL SERVICES AT HOME: REQUESTING [facility] ( 20 HRS A DAY PLUS WEEKENDS), VNA, ELECTRIC WHEELCHAIR, OUTPATIENT PHY THER. RX FOR WC AND OUTPATIENT PT LEFT IN CHART. RUDDY CHRISTOPHER AWARE OF PT'S REQUESTS. LEFT MESSAGE FOR DR. CARTER REGARDING D/C ON SATURDAY. NO FURTHER ORDERS. Objective - Vital Signs/Intake and Output Vital Signs (last 24 hours): Temp Pulse Resp BP Pulse Ox 97.9 F 86 20 163/89 H 96 07/26/17 01:30 07/26/17 01:30 07/26/17 01:30 07/26/17 09:03 07/26/17 01:30 Intake and Output: 07/26/17 07/26/17 06:59 18:59 Intake Total 550 600 Output Total 450 700 Balance 100 -100 - Medications Medications: Current Medications Acetaminophen (Tylenol 325mg Tab) 650 mg PO Q8H PRN PRN Reason: Pain, Mild (1-3) or Temp>100.4 Aspirin (Ecotrin) 81 mg PO DAILY [facility] Last Admin: 07/26/17 09:04 Dose: 81 mg Carvedilol (Coreg) 12.5 mg PO BID [facility] Last Admin: 07/26/17 09:03 Dose: 12.5 mg Clopidogrel Bisulfate (Plavix) 75 mg PO DAILY [facility] Last Admin: 07/26/17 09:04 Dose: 75 mg Diphenhydramine HCl (Benadryl) 25 mg PO Q12 PRN PRN Reason: Itching / Pruritus Last Admin: 07/24/17 01:01 Dose: 25 mg Famotidine (Pepcid) 20 mg PO DAILY [facility] Last Admin: 07/26/17 12:37 Dose: 20 mg Gabapentin (Neurontin) 100 mg PO QPM [facility] Last Admin: 07/25/17 17:27 Dose: 100 mg Heparin Sodium (Porcine) (Heparin) 5,000 units SC Q12 [facility] Last Admin: 07/26/17 09:04 Dose: 5,000 units Insulin Glargine (Lantus) 10 unit SC HS [facility] Last Admin: 07/25/17 21:54 Dose: 10 units Insulin Human Regular (Novolin R) 0 unit SC ACHS [facility] PRN Reason: Protocol Last Admin: 07/26/17 12:36 Dose: 2 unit Ondansetron HCl (Zofran Odt) 4 mg SL Q6 PRN PRN Reason: Nausea/Vomiting Oxycodone/Acetaminophen (Percocet 5/325 Mg Tab) 1 tab PO Q8 PRN PRN Reason: Pain, moderate (4-7) Stop: 07/28/17 22:01 Last Admin: 07/26/17 04:25 Dose: 1 tab Vitamin B Complex/Vit C/Folic Acid (Nephro-Cony) 1 tab PO DAILY [facility] Last Admin: 07/26/17 09:04 Dose: 1 tab - Labs Labs: 07/25/17 09:40 07/25/17 09:40 PT 10.8 SECONDS (9.7-12.2) 07/25/17 09:40 INR 1.0 07/25/17 09:40
[2017-07-26] MEDS: (Lantus) Insulin Glargine, Recombinant SC SCH (21:11)
[2017-07-27] MEDS: (Novolin R) Insulin Human Regular 100 units/ml vial SC SCH ×4 (08:50→22:17)
--- NOTE | 2017-07-27 09:22 | CP.PCM.PN ---
Subjective - Date & Time of Evaluation Date of Evaluation: 07/27/17 Time of Evaluation: 09:22 - Subjective Subjective: Patient supposed to be discharged yesterday, but she did not go home yet. She is feeling comfortable otherwise. She will be getting hemodialysis today. Vital signs stable. Comparing the pain in the right upper extremity. No nausea, no vomiting noted. There is any other major active symptoms. Patient has a bilateral below-knee on vacation. Right hemodialysis catheter on the right internal jugular vein. She will be getting the dialysis, and the possible discharge tomorrow. Arrangements were made for home health aide, colostomy care Objective - Vital Signs/Intake and Output Vital Signs (last 24 hours): Temp Pulse Resp BP Pulse Ox 98 F 86 20 170/72 H 97 07/27/17 08:43 07/27/17 08:43 07/27/17 08:43 07/27/17 08:43 07/27/17 08:43 Intake and Output: 07/27/17 07/27/17 06:59 18:59 Intake Total 550 Output Total 450 Balance 100 - Medications Medications: Current Medications Acetaminophen (Tylenol 325mg Tab) 650 mg PO Q8H PRN PRN Reason: Pain, Mild (1-3) or Temp>100.4 Aspirin (Ecotrin) 81 mg PO DAILY [facility] Last Admin: 07/26/17 09:04 Dose: 81 mg Carvedilol (Coreg) 12.5 mg PO BID [facility] Last Admin: 07/26/17 17:33 Dose: 12.5 mg Clopidogrel Bisulfate (Plavix) 75 mg PO DAILY [facility] Last Admin: 07/26/17 09:04 Dose: 75 mg Diphenhydramine HCl (Benadryl) 25 mg PO Q12 PRN PRN Reason: Itching / Pruritus Last Admin: 07/24/17 01:01 Dose: 25 mg Famotidine (Pepcid) 20 mg PO DAILY [facility] Last Admin: 07/26/17 12:37 Dose: 20 mg Gabapentin (Neurontin) 100 mg PO QPM [facility] Last Admin: 07/26/17 17:33 Dose: 100 mg Heparin Sodium (Porcine) (Heparin) 5,000 units SC Q12 [facility] Last Admin: 07/26/17 21:10 Dose: 5,000 units Insulin Glargine (Lantus) 10 unit SC HS [facility] Last Admin: 07/26/17 21:11 Dose: 10 units Insulin Human Regular (Novolin R) 0 unit SC ACHS [facility] PRN Reason: Protocol Last Admin: 07/27/17 08:50 Dose: Not Given Ondansetron HCl (Zofran Odt) 4 mg SL Q6 PRN PRN Reason: Nausea/Vomiting Oxycodone/Acetaminophen (Percocet 5/325 Mg Tab) 1 tab PO Q8 PRN PRN Reason: Pain, moderate (4-7) Stop: 07/28/17 22:01 Last Admin: 07/26/17 22:34 Dose: 1 tab Vitamin B Complex/Vit C/Folic Acid (Nephro-Cony) 1 tab PO DAILY [facility] Last Admin: 07/26/17 09:04 Dose: 1 tab - Labs Labs: 07/25/17 09:40 07/25/17 09:40 PT 10.8 SECONDS (9.7-12.2) 07/25/17 09:40 INR 1.0 07/25/17 09:40
[2017-07-27] MEDS: Multivitamin Vitamin B Complex (Nephro-Vite) Tab PO SCH ×2 (10:07→13:40)
--- NOTE | 2017-07-27 10:43 | CP.PCM.PN ---
Subjective - Date & Time of Evaluation Date of Evaluation: 07/27/17 Time of Evaluation: 10:41 - Subjective Subjective: presently on dialysis comfortable calm,pleasant ROS no dizziiness,sob nausea,abdomenal pain Objective - Vital Signs/Intake and Output Vital Signs (last 24 hours): Temp Pulse Resp BP Pulse Ox 97.7 F 82 20 95/62 L 96 07/27/17 09:25 07/27/17 09:25 07/27/17 09:25 07/27/17 10:10 07/27/17 09:25 Intake and Output: 07/27/17 07/27/17 06:59 18:59 Intake Total 550 Output Total 450 Balance 100 - Medications Medications: Current Medications Acetaminophen (Tylenol 325mg Tab) 650 mg PO Q8H PRN PRN Reason: Pain, Mild (1-3) or Temp>100.4 Aspirin (Ecotrin) 81 mg PO DAILY [facility] Last Admin: 07/27/17 10:07 Dose: Not Given Carvedilol (Coreg) 12.5 mg PO BID [facility] Last Admin: 07/27/17 10:06 Dose: Not Given Clopidogrel Bisulfate (Plavix) 75 mg PO DAILY [facility] Last Admin: 07/27/17 10:07 Dose: Not Given Diphenhydramine HCl (Benadryl) 25 mg PO Q12 PRN PRN Reason: Itching / Pruritus Last Admin: 07/24/17 01:01 Dose: 25 mg Famotidine (Pepcid) 20 mg PO DAILY [facility] Last Admin: 07/27/17 10:07 Dose: Not Given Gabapentin (Neurontin) 100 mg PO QPM [facility] Last Admin: 07/26/17 17:33 Dose: 100 mg Insulin Glargine (Lantus) 10 unit SC HS [facility] Last Admin: 07/26/17 21:11 Dose: 10 units Insulin Human Regular (Novolin R) 0 unit SC ACHS [facility] PRN Reason: Protocol Last Admin: 07/27/17 08:50 Dose: Not Given Ondansetron HCl (Zofran Odt) 4 mg SL Q6 PRN PRN Reason: Nausea/Vomiting Oxycodone/Acetaminophen (Percocet 5/325 Mg Tab) 1 tab PO Q8 PRN PRN Reason: Pain, moderate (4-7) Stop: 07/28/17 22:01 Last Admin: 07/26/17 22:34 Dose: 1 tab Vitamin B Complex/Vit C/Folic Acid (Nephro-Cony) 1 tab PO DAILY [facility] Last Admin: 07/27/17 10:07 Dose: Not Given - Labs Labs: 07/25/17 09:40 07/25/17 09:40 PT 10.8 SECONDS (9.7-12.2) 07/25/17 09:40 INR 1.0 07/25/17 09:40 - Constitutional Appears: Well, No Acute Distress - ENT Exam ENT Exam: Mucous Membranes Moist - Respiratory Exam Respiratory Exam: Clear to Ausculation Bilateral, NORMAL BREATHING PATTERN - Cardiovascular Exam Cardiovascular Exam: REGULAR RHYTHM - GI/Abdominal Exam GI & Abdominal Exam: Soft. absent: Distended, Tenderness - Psychiatric Exam Psychiatric exam: Normal Affect - Skin Skin Exam: Dry Assessment and Plan (1) Colostomy and enterostomy complications Status: Acute (2) End stage renal disease Status: Acute (3) Type 1 diabetes mellitus with diabetic nephropathy Status: Acute (4) Diabetes mellitus Status: Acute (5) HTN (hypertension) Status: Acute (6) S/P BKA (below knee amputation) bilateral Status: Acute - Assessment and Plan (Free Text) Plan: try to remove 1 kg follow surgery recommendations
[2017-07-27] MEDS: Oxycodone/Acetaminophen 5/325 mg Tab PO PRN (13:47)
[2017-07-27 15:59] VITALS: RESP 20
[2017-07-27] MEDS ORDERED: Oxycodone/Acetaminophen 5/325 mg Tab PO ONE (18:23)
[2017-07-27] MEDS: (Lantus) Insulin Glargine, Recombinant SC SCH (22:00)
[2017-07-28] MEDS ORDERED: Promethazine DM 12.5 mg-30 mg/10 ml Syrup PO ONE (02:18)
[2017-07-28] MEDS: Oxycodone/Acetaminophen 5/325 mg Tab PO PRN ×2 (02:35→14:47)
[2017-07-28] MEDS: (Novolin R) Insulin Human Regular 100 units/ml vial SC SCH ×5 (08:30→22:27)
[2017-07-28] MEDS: Multivitamin Vitamin B Complex (Nephro-Vite) Tab PO SCH (09:27)
--- NOTE | 2017-07-28 12:29 | CP.PCM.PN ---
Subjective - Date & Time of Evaluation Date of Evaluation: 07/28/17 Time of Evaluation: 12:28 - Subjective Subjective: Patient this morning feeling better. The blood sugar was elevated. Eating well. The colostomy having increasing liquid stools noted. Vital signs noted Vital signs reviewed No neck vein distention noted Chest good air entry bilaterally, no wheezing or rales noted CVS regular heart sound, no murmur noted Abdomen soft, nontender. 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 The stump is looking better Right-sided hemodialysis catheter in the central venous line, vision got to dialysis yesterday. Stable End-stage renal disease on dialysis. Patient will need home health aide, the electric wheelchair, and physical therapy. We'll try to arrange it tomorrow, if all the these arranged to patient, can be discharged home tomorrow. Objective - Vital Signs/Intake and Output Vital Signs (last 24 hours): Temp Pulse Resp BP Pulse Ox 97.7 F 87 20 183/100 H 98 07/28/17 08:19 07/28/17 08:19 07/28/17 08:19 07/28/17 09:27 07/28/17 08:19 Intake and Output: 07/28/17 07/28/17 06:59 18:59 Intake Total 600 Output Total 1080 Balance -480 - Medications Medications: Current Medications Acetaminophen (Tylenol 325mg Tab) 650 mg PO Q8H PRN PRN Reason: Pain, Mild (1-3) or Temp>100.4 Aspirin (Ecotrin) 81 mg PO DAILY [facility] Last Admin: 07/28/17 09:27 Dose: 81 mg Carvedilol (Coreg) 12.5 mg PO BID [facility] Last Admin: 07/28/17 09:27 Dose: 12.5 mg Clopidogrel Bisulfate (Plavix) 75 mg PO DAILY [facility] Last Admin: 07/28/17 09:27 Dose: 75 mg Diphenhydramine HCl (Benadryl) 25 mg PO HS [facility] Famotidine (Pepcid) 20 mg PO DAILY [facility] Last Admin: 07/28/17 09:27 Dose: 20 mg Gabapentin (Neurontin) 100 mg PO BID [facility] Insulin Glargine (Lantus) 10 unit SC HS [facility] Last Admin: 07/26/17 21:11 Dose: 10 units Insulin Human Regular (Novolin R) 0 unit SC ACHS [facility] PRN Reason: Protocol Last Admin: 07/28/17 08:30 Dose: 2 unit Oxycodone/Acetaminophen (Percocet 5/325 Mg Tab) 1 tab PO Q12 PRN PRN Reason: Pain, moderate (4-7) Stop: 07/31/17 22:01 Vitamin B Complex/Vit C/Folic Acid (Nephro-Cony) 1 tab PO DAILY [facility] Last Admin: 07/28/17 09:27 Dose: 1 tab - Labs Labs: 07/25/17 09:40 07/25/17 09:40 PT 10.8 SECONDS (9.7-12.2) 07/25/17 09:40 INR 1.0 07/25/17 09:40
[2017-07-28] MEDS: (Lantus) Insulin Glargine, Recombinant SC SCH (22:20)
[2017-07-29 01:16] VITALS: O2SAT 98
[2017-07-29] MEDS: Oxycodone/Acetaminophen 5/325 mg Tab PO PRN (02:55)
[2017-07-29] MEDS: (Novolin R) Insulin Human Regular 100 units/ml vial SC SCH ×3 (07:30→17:35)
--- NOTE | 2017-07-29 11:16 | RAD ---
Right hand radiographs Right wrist radiographs Indication: caught right hand in wheelchair Comparison: None available Findings: Osseous demineralization limits evaluation for acute fracture lines. Wedge-shaped osseous deformity involving the distal 1st tuft, age indeterminate. Otherwise, no evidence of acute displaced fracture. No dislocation. Dense vascular calcifications. No evidence of radiopaque foreign body. Impression: Wedge-shaped osseous deformity involving the distal 1st tuft, age indeterminate. Correlate clinically. The remainder the visualized osseous structures appear intact without acute displaced fracture.
[2017-07-29] MEDS: Multivitamin Vitamin B Complex (Nephro-Vite) Tab PO SCH (11:28)
--- NOTE | 2017-07-29 13:00 | CP.PCM.PN ---
Subjective - Date & Time of Evaluation Date of Evaluation: 07/29/17 Time of Evaluation: 12:58 - Subjective Subjective: alert; no new complaint colostomy functioning well stable dialysis 07/27 BP controlled Objective - Vital Signs/Intake and Output Vital Signs (last 24 hours): Temp Pulse Resp BP Pulse Ox 98.7 F 88 20 147/87 98 07/29/17 08:33 07/29/17 08:33 07/29/17 08:33 07/29/17 11:27 07/29/17 08:33 Intake and Output: 07/29/17 07/29/17 06:59 18:59 Intake Total 720 Output Total 850 Balance -130 - Medications Medications: Current Medications Acetaminophen (Tylenol 325mg Tab) 650 mg PO Q8H PRN PRN Reason: Pain, Mild (1-3) or Temp>100.4 Last Admin: 07/29/17 07:23 Dose: 650 mg Aspirin (Ecotrin) 81 mg PO DAILY [facility] Last Admin: 07/29/17 11:27 Dose: 81 mg Carvedilol (Coreg) 12.5 mg PO BID [facility] Last Admin: 07/29/17 11:27 Dose: 12.5 mg Clopidogrel Bisulfate (Plavix) 75 mg PO DAILY [facility] Last Admin: 07/29/17 11:27 Dose: 75 mg Diphenhydramine HCl (Benadryl) 25 mg PO [facility] Last Admin: 07/28/17 22:20 Dose: 25 mg Famotidine (Pepcid) 20 mg PO DAILY [facility] Last Admin: 07/29/17 11:27 Dose: 20 mg Gabapentin (Neurontin) 100 mg PO BID [facility] Last Admin: 07/29/17 11:28 Dose: 100 mg Insulin Glargine (Lantus) 10 unit SC [facility] Last Admin: 07/28/17 22:20 Dose: 10 units Insulin Human Regular (Novolin R) 0 unit SC [facility] PRN Reason: Protocol Last Admin: 07/29/17 12:16 Dose: Not Given Oxycodone/Acetaminophen (Percocet 5/325 Mg Tab) 1 tab PO Q12 PRN PRN Reason: Pain, moderate (4-7) Stop: 07/31/17 22:01 Last Admin: 07/29/17 02:55 Dose: 1 tab Vitamin B Complex/Vit C/Folic Acid (Nephro-Cony) 1 tab PO DAILY [facility] Last Admin: 07/29/17 11:28 Dose: 1 tab - Labs Labs: 07/25/17 09:40 07/25/17 09:40 PT 10.8 SECONDS (9.7-12.2) 07/25/17 09:40 INR 1.0 07/25/17 09:40 - Constitutional Appears: No Acute Distress, Chronically Ill - Head Exam Head Exam: ATRAUMATIC, NORMAL INSPECTION - Eye Exam Eye Exam: EOMI, Normal appearance - Neck Exam Neck Exam: Normal Inspection. absent: Tenderness - Respiratory Exam Respiratory Exam: Clear to Ausculation Bilateral, NORMAL BREATHING PATTERN - Cardiovascular Exam Cardiovascular Exam: REGULAR RHYTHM, +S1 - GI/Abdominal Exam GI & Abdominal Exam: Tenderness. absent: Soft - Extremities Exam Extremities Exam: Calf Tenderness, Tenderness - Neurological Exam Neurological Exam: Alert, CN II-XII Intact - Skin Skin Exam: Dry, Warm Assessment and Plan (1) Colostomy complication, unspecified Status: Acute (2) Type 1 diabetes mellitus with diabetic nephropathy Status: Acute (3) End stage renal disease Status: Acute - Assessment and Plan (Free Text) Plan: Continue dialysis TTS colostomy reversal in future Same BP meds follow up new labs
--- NOTE | 2017-07-29 14:19 | CP.PCM.DIS ---
Provider - Provider Date of Admission: 07/24/17 11:48 Attending physician: Rod Lord MD Primary care physician: Rod Lord MD Time Spent in preparation of Discharge (in minutes): 45 Hospital Course - Lab Results Lab Results: Most Recent Lab Values WBC 6.5 K/uL (4.8-10.8) 07/25/17 09:40 RBC 3.49 Mil/uL (3.80-5.20) L 07/25/17 09:40 Hgb 11.2 g/dL (11.0-16.0) 07/25/17 09:40 Hct 34.6 % (34.0-47.0) 07/25/17 09:40 MCV 99.1 fL (81.0-99.0) H 07/25/17 09:40 MCH 31.9 pg (27.0-31.0) H 07/25/17 09:40 MCHC 32.2 g/dL (33.0-37.0) L 07/25/17 09:40 RDW 18.1 % (11.5-14.5) H 07/25/17 09:40 Plt Count 213 K/uL (130-400) 07/25/17 09:40 MPV 10.1 fL (7.2-11.7) 07/25/17 09:40 Neut % (Auto) 64.6 % (50.0-75.0) 07/25/17 09:40 Lymph % (Auto) 24.5 % (20.0-40.0) 07/25/17 09:40 [place] % (Auto) 8.4 % (0.0-10.0) 07/25/17 09:40 Eos % (Auto) 1.4 % (0.0-4.0) 07/25/17 09:40 Baso % (Auto) 1.1 % (0.0-2.0) 07/25/17 09:40 Neut # (Auto) 4.2 K/uL (1.8-7.0) 07/25/17 09:40 Lymph # (Auto) 1.6 K/uL (1.0-4.3) 07/25/17 09:40 [place] # (Auto) 0.5 K/uL (0.0-0.8) 07/25/17 09:40 Eos # (Auto) 0.1 K/uL (0.0-0.7) 07/25/17 09:40 Baso # (Auto) 0.1 K/uL (0.0-0.2) 07/25/17 09:40 PT 10.8 SECONDS (9.7-12.2) 07/25/17 09:40 INR 1.0 07/25/17 09:40 Sodium 132 mmol/L (132-148) 07/25/17 09:40 Potassium 4.9 mmol/L (3.6-5.2) 07/25/17 09:40 Chloride 90 mmol/L (98-107) L 07/25/17 09:40 Carbon Dioxide 28 mmol/L (22-30) 07/25/17 09:40 Anion Gap 19 (10-20) 07/25/17 09:40 BUN 30 mg/dL (7-17) H 07/25/17 09:40 Creatinine 7.5 mg/dL (0.7-1.2) H* D 07/25/17 09:40 Est GFR ( Amer) 7 07/25/17 09:40 Est GFR (Non-Af Amer) 6 07/25/17 09:40 POC Glucose (mg/dL) 156 mg/dL (65-110) H 07/29/17 11:52 Random Glucose 303 mg/dL (65-105) H 07/25/17 09:40 Calcium 10.0 mg/dl (8.6-10.4) 07/25/17 09:40 Total Bilirubin 0.6 mg/dL (0.2-1.3) 07/24/17 00:32 AST 21 U/L (14-36) 07/24/17 00:32 ALT 17 U/L (9-52) 07/24/17 00:32 Alkaline Phosphatase 95 U/L (38-126) 07/24/17 00:32 Total Protein 8.5 g/dL (6.3-8.3) H 07/24/17 00:32 Albumin 4.2 g/dL (3.5-5.0) 07/24/17 00:32 Globulin 4.4 gm/dL (2.2-3.9) H 07/24/17 00:32 Albumin/Globulin Ratio 0.9 (1.0-2.1) L 07/24/17 00:32 - Hospital Course Hospital Course: Chief complaint: Colostomy drainage, uncontrolled History of present illness: 51-year-old female with a history of hypertension, end-stage renal disease, was on peritoneal dialysis, converted to hemodialysis, hypercholesterolemia, diabetes, history of pneumonia, history of peripheral vascular disease is clinically looks improving. Patient had a bilateral leg gangrene, complicated with bilateral below-knee amputation. Patient wound healing well. She came to the office with increasing drainage from the colostomy. Patient does not have any other major active symptoms, including pain. pt is having increasing discomfort and pain in the both hands. Patient was in rehabilitation recently. Past medical history: As noted above Surgical history: Patient has a hemodialysis catheter and the right internal jugular vein. Bilateral below-knee amputation. Patient has severe constipation, complicated with colitis, impending rupture, underwent near total colectomy, and colostomy. Allergies: No known drug allergy Personal history: Used to be a smoker in the past, also was using drugs in the past. Denies any alcohol Review of systems Currently having no headache, no chest pain or shortness of breath. Right hemodialysis catheter in the internal jugular vein. Colostomy. Below-knee limitation bilaterally. Vital signs reviewed No neck vein distention noted Chest good air entry bilaterally, no wheezing or rales noted CVS regular heart sound, no murmur noted Abdomen soft, nontender colostomy draining noted Extremities, bilateral below-knee amputation secondary to gangrene of the legs. 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 Status post a colostomy, and a colectomy admitted now with increasing colostomy output. And possibly reversal. We'll continue the hemodialysis. Evaluation by GI for sigmoidoscopy. On the possibility of recent. Glucose control, no antibiotic is at this time will follow the patient Course in the Hospital: Patient was evaluated by the machine assembler supervisor. She underwent upper sigmoidoscopy, showing normal mucosa Patient is now clinical stable. Patient will get the hemodialysis tomorrow. Patient can be discharged home today, and she will follow up as an outpatient for possible elective reversal of colostomy. Continue the current treatment. Medications reviewed. Medications updated. Will follow the patient as an outpatient the patient did not go home today as prior to the admission date. Because of the home care and visiting nurse. Is being arranged now. Patient can be discharged home I spoke to the patient regarding this plan. Outpatient hemodialysis arranged Discharge Exam - Head Exam Head Exam: ATRAUMATIC, NORMAL INSPECTION Discharge Plan - Discharge Medications Prescriptions: RX: Carvedilol [Coreg] 12.5 mg PO BID #60 tab RX: oxyCODONE/Acetaminophen [Percocet 5/325 mg Tab] 1 tab PO Q8H PRN #10 tab PRN Reason: Pain, Severe (8-10) - Follow Up Plan Condition: FAIR Disposition: HOME/ ROUTINE Instructions: Heart Failure, Adult, Heart Failure, Adult (DC), Diabetes Diet , Carvedilol, Oxycodone and Acetaminophen, Diabetic Meal Planning Additional Instructions: continue with present meds follow up with PMD in 1 week Referrals: Rod Lord MD [Primary Care Provider] -
[2017-07-29 17:23] VITALS: BP 149/81; PULSE 81; TEMP 98.3
== END 2017-07-29 21:00 | disposition home or self-care (01) | DRG 188 ==
LOC: SUPCPDRO 19:54 → C.ER 19:54 → C.3T 23:26 → OBSVTOIN 07-24 11:48
PROVIDERS: ADMIT Internal Medicine; ATTEND Internal Medicine
PROC: 5A1D70Z Performance of Urinary Filtration, Intermittent, Less than 6 Hours Per Day (ICD-10-PCS; 2017-07-25)
PROC: 0DJD8ZZ Inspection of Lower Intestinal Tract, Via Natural or Artificial Opening Endoscopic (ICD-10-PCS; principal; 2017-07-25 13:47)
DX: K94.03 Colostomy malfunction (principal); E11.22 Type 2 diabetes mellitus with diabetic chronic kidney disease; I13.2 Hypertensive heart and chronic kidney disease with heart failure and with stage 5 chronic kidney disease, or end stage renal disease; I70.269 Atherosclerosis of native arteries of extremities with gangrene, unspecified extremity; N18.6 End stage renal disease; I50.9 Heart failure, unspecified; Z99.2 Dependence on renal dialysis; Z79.4 Long term (current) use of insulin; E78.00 Pure hypercholesterolemia, unspecified; F41.9 Anxiety disorder, unspecified; F17.210 Nicotine dependence, cigarettes, uncomplicated; Y83.3 Surgical operation with formation of external stoma as the cause of abnormal reaction of the patient, or of later complication, without mention of misadventure at the time of the procedure

== ENCOUNTER 2017-08-08 19:22 | Observation (INO) | payer OTHER ==
[2017-08-08 19:23] VITALS: BMI 26.9
--- NOTE | 2017-08-08 19:46 | C.PDOC ---
History Of Present Illness 51 yr old female presents to the ER from dialysis stating initially her blood pressure was low but was high after receiving some normal saline. Patient reports of headache. States she did not eat her dinner and is hungry, requesting food. Patient denies fever, chest pain, SOB, palpitations, nausea, vomiting, weakness or numbness. 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'S ASSISTANT) Past Medical History Reviewed: Historical Data, Nursing Documentation, Vital Signs Vital Signs: Last Vital Signs Temp 98.4 F 08/08/17 19:37 Pulse 90 08/08/17 21:22 Resp 16 08/08/17 21:22 BP 160/63 H 08/08/17 21:22 Pulse Ox 96 08/08/17 22:46 - Medical History PMH: Anemia, Anxiety, Bronchitis, CHF, Diabetes, HTN, Hypercholesterolemia, End Stage Renal Disease (PD), Chronic Kidney Disease Surgical History: - [facility] Procedures (07/24/17) BYPASS RIGHT FEMORAL ARTERY TO POPLIT ART, OPEN APPROACH (10/26/16) CREATE CUTANPERITON FIST (12/30/14) DETACHMENT AT LEFT LOWER LEG, HIGH, OPEN APPROACH (05/03/17) DETACHMENT AT RIGHT FOOT, PARTIAL 1ST RAY, OPEN APPROACH (02/04/17) DETACHMENT AT RIGHT FOOT, PARTIAL 2ND RAY, OPEN APPROACH (02/04/17) DETACHMENT AT RIGHT FOOT, PARTIAL 3RD RAY, OPEN APPROACH (02/04/17) DETACHMENT AT RIGHT FOOT, PARTIAL 4TH RAY, OPEN APPROACH (02/04/17) DETACHMENT AT RIGHT FOOT, PARTIAL 5TH RAY, OPEN APPROACH (02/04/17) DETACHMENT AT RIGHT KNEE REGION, OPEN APPROACH (02/04/17) DILATION OF R COM ILIAC ART WITH INTRALUM DEV, PERC APPROACH (10/26/16) EXCISION OF RIGHT FOOT SKIN, EXTERNAL APPROACH (02/04/17) EXCISION OF SIGMOID COLON, OPEN APPROACH (02/04/17) FLUOROSCOPY OF LEFT HEART USING LOW OSMOLAR CONTRAST (10/26/16) FLUOROSCOPY OF MULT COR ART USING L OSM CONTRAST (10/26/16) HEMODIALYSIS (11/06/14) INSERTION OF INFUSION DEV INTO R SUBCLAV VEIN, PERC APPROACH (02/04/17) INSERTION OF INFUSION DEV INTO SUP VENA CAVA, PERC APPROACH (02/04/17) INSPECTION OF LOWER INTESTINAL TRACT, ENDO (07/24/17) IRRIGATION OF PERITON CAV USING DIALYSATE, PERC APPROACH (05/03/17) LAPAROSCOP LYSIS-PERITONEAL ADHES (12/30/14) MEASURE OF CARDIAC SAMPL & PRESSURE, L HEART, PERC APPROACH (10/26/16) PLAIN RADIOGRAPHY OF AORTA, BI LE ART USING L OSM CONTRAST (10/26/16) REMOVAL OF INFUSION DEVICE FROM GREAT VESSEL, PERC APPROACH (02/04/17) TRANSFUSE NONAUT RED BLOOD CELLS IN PERIPH VEIN, PERC (02/04/17) VASCULAR CATH IRRIGATION (01/14/15) VENOUS CATHETERIZATION FOR RENAL DIALYSIS (11/06/14) Family History: States: No Known Family Hx - Social History Hx Tobacco Use: Yes Hx Alcohol Use: No Hx Substance Use: No - Immunization History Hx Tetanus Toxoid Vaccination: Yes Hx Influenza Vaccination: No Hx Pneumococcal Vaccination: No Review Of Systems Except As Marked, All Systems Reviewed And Found Negative. Constitutional: Negative for: Fever Cardiovascular: Negative for: Chest Pain, Palpitations Respiratory: Negative for: Shortness of Breath Gastrointestinal: Negative for: Nausea, Vomiting Neurological: Positive for: Headache. Negative for: Weakness, Numbness Physical Exam - Physical Exam Appears: Non-toxic, No Acute Distress, Other (+ speaking in full sentences) Skin: Warm, Dry, No Rash Eye(s): bilateral: PERRL, EOMI Oral Mucosa: Dry Lips: No Swelling Cardiovascular: No Murmur Respiratory: No Rales, No Rhonchi, No Stridor, No Wheezing Gastrointestinal/Abdominal: Soft, No Tenderness, No Guarding, No Rebound, Other (+ left lower colostomy bag present) Extremity: Other (+ bilateral BKA) Neurological/Psych: Oriented x3, Normal Speech ED Course And Treatment O2 Sat by Pulse Oximetry: 96 (RA) Pulse Ox Interpretation: Normal - Radiology CXR: Interpreted by Me, Viewed By Me CXR Interpretation: Yes: Other (hdport r chest). No: Infiltrates, Fracture, Cardiomegaly Progress Note: Patient is requesting food, states she does not want blood work done. Patient will be monitered. Disposition Discussed With : Rod Lord Comment: accetped the pt on his service and took over the care at 10:45 PM Doctor Will See Patient In The: Hospital Counseled Patient/Family Regarding: Studies Performed, Diagnosis - Disposition Disposition: HOSPITALIZED Disposition Time: 19:46 Condition: FAIR Forms: [facility] (Thai) - POA Present On Arrival: Poor Glycemic Control - Clinical Impression Clinical Impression: Headache, End-stage renal disease on hemodialysis, Labile hypertension - Scribe Statement The provider has reviewed the documentation as recorded by the Hannahibe Malika Del Rio Provider Attestation: All medical record entries made by the Hannahibabram were at my direction and personally dictated by me. I have reviewed the chart and agree that the record accurately reflects my personal performance of the history, physical exam, medical decision making, and the department course for this patient. I have also personally directed, reviewed, and agree with the discharge instructions and disposition. Decision To Admit - Pt Status Changed To: Hospital Disposition Of: Observation - . Bed Request Type: Telemetry Admitting Physician: Rod Lord Patient Diagnosis: Headache, End-stage renal disease on hemodialysis, Labile hypertension
[2017-08-08 22:43] LABS: BASO # 0.1 K/uL (0.0-0.2); BASO % 0.7 % (0.0-2.0); EOS # 0.2 K/uL (0.0-0.7); EOS % 1.4 % (0.0-4.0); HEMOGLOBIN 11.7 g/dL (11.0-16.0); LYMPH % 21.5 % (20.0-40.0); MEAN CELL VOLUME 99.5 fL (81.0-99.0); MEAN CORPUSCULAR HEMOGLOBIN 32.6 pg (27.0-31.0); MEAN CORPUSCULAR HGB CONC 32.7 g/dL (33.0-37.0); MEAN PLATELET VOLUME 10.3 fL (7.2-11.7); MONO % 6.2 % (0.0-10.0); NEUT % 70.2 % (50.0-75.0); RBC 3.59 Mil/uL (3.80-5.20); RED CELL DISTRIBUTION WIDTH 18.7 % (11.5-14.5)
--- NOTE | 2017-08-08 22:47 | CT ---
EXAM: CT Head Without Intravenous Contrast CLINICAL HISTORY: 51 years old, female; Signs and symptoms; Dizziness; Additional info: Dizziness, TECHNIQUE: Axial computed tomography images of the head/brain without intravenous contrast. All CT scans at this facility use one or more dose reduction techniques, viz.: automated exposure control; ma/kV adjustment per patient size (including targeted exams where dose is matched to indication; i.e. head); or iterative reconstruction technique. Coronal and sagittal reformatted images were created and reviewed. COMPARISON: CT - HEAD W/O CONTRAST 2015-01-26 20:38 FINDINGS: Brain: Unremarkable. No hemorrhage. No significant white matter disease. No edema. Ventricles: Unremarkable. No ventriculomegaly. Bones/joints: Unremarkable. No acute fracture. Soft tissues: Unremarkable. Sinuses: Unremarkable as visualized. No acute sinusitis. Mastoid air cells: Unremarkable as visualized. No mastoid effusion. IMPRESSION: No evidence of an acute intracranial abnormality.
[2017-08-08 23:12] LABS: WHITE BLOOD COUNT 16.4 K/uL (4.8-10.8)
[2017-08-08 23:13] LABS: LYMPH # 3.5 K/uL (1.0-4.3); NEUT # 11.6 K/uL (1.8-7.0)
[2017-08-08 23:41] LABS: ALB/GLOB RATIO 1.1 (1.0-2.1); ALT/SGPT 20 U/L (9-52); AST/SGOT 18 U/L (14-36); BLOOD UREA NITROGEN 13 mg/dL (7-17); CALCIUM 9.2 mg/dl (8.6-10.4); GFR AFRICAN-AMERICAN 15; GFR NON-AFRICAN AMERICAN 13
--- NOTE | 2017-08-09 07:33 | RAD ---
Chest x-ray single frontal view History: Shortness of breath. Comparison: 06/13/2017 Findings: Right central venous catheter tip extending into the right atrium. Mild venous congestion. Small nodular density at the right lung apex may represent small granuloma and or nodule. No focal infiltrate or effusion. Heart size within normal limits. Calcification at the aortic knob. Impression: No focal infiltrate or effusion. Small nodular density at the right lung apex may represent nodule and or granuloma. Clinical correlation. Alternatively, interval follow-up x-ray and/or CT may be helpful if clinically indicated.
[2017-08-09] MEDS: (Novolin R) Insulin Human Regular 100 units/ml vial SC SCH ×4 (08:26→21:49)
[2017-08-09] MEDS: Multivitamin Vitamin B Complex (Nephro-Vite) Tab PO SCH (10:22)
--- NOTE | 2017-08-09 15:09 | CP.PCM.CON ---
History of Present Illness - History of Present Illness History of Present Illness: History Of Present Illness 51 yr old female presents to the ER from dialysis stating initially her blood pressure was low but was high after receiving some normal saline. Patient reports of headache. States she did not eat her dinner and is hungry, requesting food. Patient denies fever, chest pain, SOB, palpitations, nausea, vomiting, weakness or numbness. Presented with uncontrolled HTN; recently has been hypoglycemic Had been in rehab center. PMH: ESRD DIABETIC NEPHROPATHY HTN DM 1 PVD- S/P BILATERAL BKAs DIABETIC NEUROPATHY OBSTIPATION PSH: PD CATHETER PLACEMENT AND REMOVAL PERMCATH BILATERAL BKAs COLOSTOMY PLACEMENT Review of Systems - Constitutional Constitutional: Fatigue, Weakness - EENT Eyes: absent: As Per HPI, Blind Spots, Blurred Vision, Change in Vision, Decreased Night Vision, Diplopia, Discharge, Dry Eye, Exophthalmos, Floaters, Irritation, Itchy Eyes, Loss of Peripheral Vision, Pain, Photophobia, Requires Corrective Lenses, Sees Flashes, Spots in Vision, Tunnel Vision, Other Visual Disturbances, Loss of Vision, Other Ears: absent: As Per HPI, Decreased Hearing, Ear Discharge, Ear Pain, Tinnitus, Abnormal Hearing, Disequilibrium, Dizziness, Other Nose/Mouth/Throat: absent: As Per HPI, Epistaxis, Nasal Congestion, Nasal Discharge, Nasal Obstruction, Nasal Trauma, Nose Pain, Post Nasal Drip, Sinus Pain, Sinus Pressure, Bleeding Gums, Change in Voice, Dental Pain, Dry Mouth, Dysphagia, Halitosis, Hoarsness, Lip Swelling, Mouth Lesions, Mouth Pain, Odynophagia, Sore Throat, Throat Swelling, Tongue Swelling, Facial Pain, Neck Pain, Neck Mass, Other - Cardiovascular Cardiovascular: Dyspnea on Exertion, Lightheadedness - Respiratory Respiratory: Dyspnea on Exertion - Gastrointestinal Gastrointestinal: Change in Stool Character, Constipation, Diarrhea - Genitourinary Genitourinary: As Per HPI - Musculoskeletal Musculoskeletal: Muscle Weakness, Myalgias - Neurological Neurological: absent: As Per HPI, Abnormal Gait, Abnormal Hearing, Abnormal Movements, Abnormal Speech, Behavioral Changes, Burning Sensations, Confusion, Convulsions, Disequilibrium, Dizziness, Numbness, Focal Weakness, Frequent Falls , Headaches, Lack of Coordination, Loss of Vision, Memory Loss, Paresthesias, Radicular Pain, Restless Legs, Sensory Deficit, Syncope, Tingling, Tremor, Vertigo, Weakness, Other Visual Disturbances, Other - Psychiatric Psychiatric: Anxiety, Mood Swings Past Patient History - Infectious Disease Hx of Infectious Diseases: None - Past Medical History & Family History Past Medical History?: Yes Past Family History: Reviewed and not pertinent - Past Social History Smoking Status: Former Smoker Chewing Tobacco Use: No Cigar Use: No Alcohol: None Drugs: Denies Home Situation {Lives}: Senior Care - CARDIAC Hx Congestive Heart Failure: Yes Hx Hypercholesterolemia: Yes Hx Hypertension: Yes - PULMONARY Hx Bronchitis: Yes - NEUROLOGICAL Hx Neurological Disorder: No - HEENT Hx HEENT Problems: No - RENAL Hx Chronic Kidney Disease: Yes - ENDOCRINE/METABOLIC Hx Diabetes Mellitus Type 2: Yes - HEMATOLOGICAL/ONCOLOGICAL Hx Anemia: Yes - INTEGUMENTARY Hx Dermatological Problems: Yes Hx Eczema: Yes - MUSCULOSKELETAL/RHEUMATOLOGICAL Hx Falls: Yes - GASTROINTESTINAL Hx Gastrointestinal Disorders: Yes Hx Colostomy: Yes - GENITOURINARY/GYNECOLOGICAL Hx Genitourinary Disorders: Yes (DX: RENAL FAILURE) - PSYCHIATRIC Hx Anxiety: Yes Hx Substance Use: No - SURGICAL HISTORY Hx Surgeries: Yes Hx Amputation: Yes (RBK) Hx Section: Yes Hx Eye Surgery: Yes (INSERT "GAS" BUBBLE BOTH EYES) Hx Tubal Ligation: Yes Hx Vascular Access Device: Yes (R SC HD cath) Other/Comment: I&D GROIN; 12/30/14 LAPAROSCOPIC INSERTION PERITONEAL DIALYSIS CATHETE over right chest. 01/14/15 REVISION DONE OF PERITIONEAL DIALYSIS CATH. - ANESTHESIA Hx Anesthesia: Yes Hx Anesthesia Reactions: No Hx Malignant Hyperthermia: No Meds Allergies/Adverse Reactions: Allergies Allergy/AdvReac Type Severity Reaction Status Date / Time shrimp Allergy Severe RASH Verified 08/08/17 19:40 - Medications Medications: Current Medications Acetaminophen (Tylenol 325mg Tab) 650 mg PO Q8H PRN PRN Reason: Pain, Mild (1-3) or Temp>100.4 Amlodipine Besylate (Norvasc) 2.5 mg PO DAILY [facility] Last Admin: 08/09/17 10:15 Dose: Not Given Aspirin (Ecotrin) 81 mg PO DAILY [facility] Last Admin: 08/09/17 10:21 Dose: 81 mg Carvedilol (Coreg) 12.5 mg PO BID [facility] Last Admin: 08/09/17 10:16 Dose: Not Given Famotidine (Pepcid) 20 mg PO DAILY [facility] Last Admin: 08/09/17 10:21 Dose: 20 mg Gabapentin (Neurontin) 100 mg PO QPM [facility] Heparin Sodium (Porcine) (Heparin) 5,000 units SC Q12 [facility] Last Admin: 08/09/17 10:22 Dose: 5,000 units Insulin Glargine (Lantus) 10 unit SC HS [facility] Insulin Human Regular (Novolin R) 0 unit SC ACHS [facility] PRN Reason: Protocol Last Admin: 08/09/17 12:17 Dose: Not Given Oxycodone/Acetaminophen (Percocet 5/325 Mg Tab) 1 tab PO Q8H PRN PRN Reason: Pain, severe (8-10) Stop: 08/11/17 23:49 Vitamin B Complex/Vit C/Folic Acid (Nephro-Cony) 1 tab PO DAILY [facility] Last Admin: 08/09/17 10:22 Dose: 1 tab Physical Exam - Constitutional Appears: Non-toxic, Chronically Ill - Head Exam Head Exam: ATRAUMATIC, NORMAL INSPECTION - Eye Exam Eye Exam: EOMI, Normal appearance - Neck Exam Neck exam: Positive for: Normal Inspection. Negative for: Tenderness - Respiratory Exam Respiratory Exam: Clear to Auscultation Bilateral, NORMAL BREATHING PATTERN - Cardiovascular Exam Cardiovascular Exam: REGULAR RHYTHM, +S1 - GI/Abdominal Exam GI & Abdominal Exam: Soft. absent: Tenderness - Extremities Exam Extremities exam: Positive for: normal inspection. Negative for: tenderness - Neurological Exam Neurological exam: Alert, Oriented x3 - Skin Skin Exam: Dry, Warm Results - Vital Signs Recent Vital Signs: Last Vital Signs Temp 97.7 F 08/09/17 07:35 Pulse 87 08/09/17 13:02 Resp 18 08/09/17 07:35 BP 164/80 H 08/09/17 13:02 Pulse Ox 100 08/09/17 07:35 - Labs Result Diagrams: 08/08/17 22:36 08/08/17 23:13 Labs: Laboratory Results - last 24 hr 08/08/17 08/08/17 08/09/17 22:36 23:13 06:34 WBC 16.4 H D RBC 3.59 L Hgb 11.7 Hct 35.7 MCV 99.5 H MCH 32.6 H MCHC 32.7 L RDW 18.7 H Plt Count 213 MPV 10.3 Neut % (Auto) 70.2 Lymph % (Auto) 21.5 [place] % (Auto) 6.2 Eos % (Auto) 1.4 Baso % (Auto) 0.7 Neut # (Auto) 11.6 H Lymph # (Auto) 3.5 [place] # (Auto) 1.0 H Eos # (Auto) 0.2 Baso # (Auto) 0.1 Sodium 137 Potassium 4.6 Chloride 95 L Carbon Dioxide 29 Anion Gap 18 BUN 13 Creatinine 3.8 H Est GFR ( Amer) 15 Est GFR (Non-Af Amer) 13 POC Glucose (mg/dL) 96 Random Glucose 234 H Calcium 9.2 Total Bilirubin 0.3 AST 18 ALT 20 Alkaline Phosphatase 78 Total Protein 7.9 Albumin 4.0 Globulin 3.8 Albumin/Globulin Ratio 1.1 Serum Ketones Negative 08/09/17 11:55 WBC RBC Hgb Hct MCV MCH MCHC RDW Plt Count MPV Neut % (Auto) Lymph % (Auto) [place] % (Auto) Eos % (Auto) Baso % (Auto) Neut # (Auto) Lymph # (Auto) [place] # (Auto) Eos # (Auto) Baso # (Auto) Sodium Potassium Chloride Carbon Dioxide Anion Gap BUN Creatinine Est GFR ( Amer) Est GFR (Non-Af Amer) POC Glucose (mg/dL) 125 H Random Glucose Calcium Total Bilirubin AST ALT Alkaline Phosphatase Total Protein Albumin Globulin Albumin/Globulin Ratio Serum Ketones Assessment & Plan (1) Hypoglycemia Status: Acute (2) Obstipation Status: Acute (3) Type 1 diabetes mellitus with diabetic nephropathy Status: Acute - Assessment and Plan (Free Text) Plan: Monitor and control HTN Check BSs Dialysis TTS
[2017-08-09] MEDS ORDERED: (Lantus) Insulin Glargine, Recombinant SC SCH (22:00)
[2017-08-10] MEDS: Oxycodone/Acetaminophen 5/325 mg Tab PO PRN ×2 (00:36→18:25)
[2017-08-10] MEDS: (Novolin R) Insulin Human Regular 100 units/ml vial SC SCH ×3 (07:19→17:05)
--- NOTE | 2017-08-10 09:39 | CP.PCM.PN ---
Subjective - Date & Time of Evaluation Date of Evaluation: 08/10/17 Time of Evaluation: 09:36 - Subjective Subjective: confortable awake, eating breakfast afebrile no complaints at present ROS- as per HPI, other than that 10 point ROS negative Objective - Vital Signs/Intake and Output Vital Signs (last 24 hours): Temp Pulse Resp BP Pulse Ox 97.6 F 81 18 168/76 H 96 08/10/17 07:35 08/10/17 07:35 08/10/17 07:35 08/10/17 07:35 08/10/17 07:35 - Medications Medications: Current Medications Acetaminophen (Tylenol 325mg Tab) 650 mg PO Q8H PRN PRN Reason: Pain, Mild (1-3) or Temp>100.4 Last Admin: 08/10/17 00:51 Dose: 650 mg Amlodipine Besylate (Norvasc) 2.5 mg PO DAILY [facility] Last Admin: 08/09/17 10:15 Dose: Not Given Aspirin (Ecotrin) 81 mg PO DAILY [facility] Last Admin: 08/09/17 10:21 Dose: 81 mg Carvedilol (Coreg) 12.5 mg PO BID [facility] Last Admin: 08/09/17 18:28 Dose: 12.5 mg Famotidine (Pepcid) 20 mg PO DAILY [facility] Last Admin: 08/09/17 10:21 Dose: 20 mg Gabapentin (Neurontin) 100 mg PO QPM [facility] Last Admin: 08/09/17 17:33 Dose: 100 mg Heparin Sodium (Porcine) (Heparin) 5,000 units SC Q12 [facility] Last Admin: 08/09/17 21:51 Dose: 5,000 units Insulin Glargine (Lantus) 10 unit SC HS [facility] Last Admin: 08/09/17 21:50 Dose: 10 unit Insulin Human Regular (Novolin R) 0 unit SC ACHS [facility] PRN Reason: Protocol Last Admin: 08/10/17 07:19 Dose: Not Given Oxycodone/Acetaminophen (Percocet 5/325 Mg Tab) 1 tab PO Q8H PRN PRN Reason: Pain, severe (8-10) Stop: 08/11/17 23:49 Vitamin B Complex/Vit C/Folic Acid (Nephro-Cony) 1 tab PO DAILY [facility] Last Admin: 08/09/17 10:22 Dose: 1 tab - Labs Labs: 08/08/17 22:36 08/08/17 23:13 - Constitutional Appears: Well, Non-toxic - Head Exam Head Exam: ATRAUMATIC, NORMOCEPHALIC - Eye Exam Eye Exam: EOMI, PERRL - ENT Exam ENT Exam: Mucous Membranes Moist - Neck Exam Neck Exam: Full ROM - Respiratory Exam Respiratory Exam: Clear to Ausculation Bilateral. absent: Rhonchi, Wheezes - Cardiovascular Exam Cardiovascular Exam: REGULAR RHYTHM, +S1, +S2 - GI/Abdominal Exam GI & Abdominal Exam: Soft. absent: Tenderness Additional comments: colostomy - Extremities Exam Additional comments: b/l BKA - Neurological Exam Neurological Exam: Alert, Awake, Oriented x3 - Psychiatric Exam Psychiatric exam: Normal Affect, Normal Mood - Skin Skin Exam: Intact, Warm Assessment and Plan (1) End-stage renal disease on hemodialysis Status: Acute (2) Labile hypertension Status: Acute (3) CHF (congestive heart failure) Status: Acute (4) Chronic anemia Status: Acute (5) Diabetes mellitus Status: Acute - Assessment and Plan (Free Text) Plan: hd today monitor BP with HD aranesp for anemia stable renal marti
[2017-08-10] MEDS: Multivitamin Vitamin B Complex (Nephro-Vite) Tab PO SCH (09:42)
[2017-08-10 10:23] LABS: BASO % 0.6 % (0.0-2.0); EOS # 0.2 K/uL (0.0-0.7); EOS % 2.2 % (0.0-4.0); HEMOGLOBIN 11.7 g/dL (11.0-16.0); LYMPH # 2.6 K/uL (1.0-4.3); LYMPH % 31.8 % (20.0-40.0); MEAN CELL VOLUME 100.5 fL (81.0-99.0); MEAN CORPUSCULAR HEMOGLOBIN 32.3 pg (27.0-31.0); MEAN CORPUSCULAR HGB CONC 32.1 g/dL (33.0-37.0); MEAN PLATELET VOLUME 9.7 fL (7.2-11.7); MONO # 0.5 K/uL (0.0-0.8); MONO % 6.6 % (0.0-10.0); NEUT # 4.8 K/uL (1.8-7.0); NEUT % 58.8 % (50.0-75.0); NRBC % 0.1 % (0.0-2.0); RBC 3.63 Mil/uL (3.80-5.20); RED CELL DISTRIBUTION WIDTH 19.4 % (11.5-14.5); WHITE BLOOD COUNT 8.2 K/uL (4.8-10.8)
[2017-08-10 10:56] LABS: ALB/GLOB RATIO 1.2 (1.0-2.1); ALBUMIN 4.1 g/dL (3.5-5.0)
[2017-08-10] MEDS ORDERED: Nitroglycerin 2% Ointment Foilpak UD TOP SCH (16:15)
--- NOTE | 2017-08-10 16:42 | CP.PCM.PN ---
Subjective - Date & Time of Evaluation Date of Evaluation: 08/10/17 Time of Evaluation: 16:40 - Subjective Subjective: PT SEEN AND EXAMINED TODAY, DENIES ANY PAIN, PALPITATION, HEADACHE, SOB, RESP EASY AND UNLABORED, NAD. Objective - Vital Signs/Intake and Output Vital Signs (last 24 hours): Temp Pulse Resp BP Pulse Ox 97 F L 58 L 16 93/78 L 97 08/10/17 09:20 08/10/17 12:20 08/10/17 12:20 08/10/17 12:20 08/10/17 12:20 Intake and Output: 08/10/17 08/10/17 06:59 18:59 Intake Total 300 Balance 300 - Medications Medications: Current Medications Acetaminophen (Tylenol 325mg Tab) 650 mg PO Q8H PRN PRN Reason: Pain, Mild (1-3) or Temp>100.4 Last Admin: 08/10/17 10:43 Dose: 650 mg Amlodipine Besylate (Norvasc) 2.5 mg PO DAILY [facility] Last Admin: 08/10/17 09:42 Dose: Not Given Aspirin (Ecotrin) 81 mg PO DAILY [facility] Last Admin: 08/10/17 09:42 Dose: Not Given Carvedilol (Coreg) 12.5 mg PO BID [facility] Last Admin: 08/10/17 09:42 Dose: Not Given Famotidine (Pepcid) 20 mg PO DAILY [facility] Last Admin: 08/10/17 09:42 Dose: Not Given Gabapentin (Neurontin) 100 mg PO QPM [facility] Last Admin: 08/09/17 17:33 Dose: 100 mg Heparin Sodium (Porcine) (Heparin) 5,000 units SC Q12 [facility] Last Admin: 08/10/17 09:42 Dose: Not Given Insulin Glargine (Lantus) 10 unit SC HS [facility] Last Admin: 08/09/17 21:50 Dose: 10 unit Insulin Human Regular (Novolin R) 0 unit SC ACHS [facility] PRN Reason: Protocol Last Admin: 08/10/17 12:13 Dose: Not Given Nitroglycerin (Nitro-Bid 2% Oint) 1 ea TOP DAILY [facility] Last Admin: 08/10/17 16:17 Dose: 1 ea Oxycodone/Acetaminophen (Percocet 5/325 Mg Tab) 1 tab PO Q8H PRN PRN Reason: Pain, severe (8-10) Stop: 08/11/17 23:49 Vitamin B Complex/Vit C/Folic Acid (Nephro-Cony) 1 tab PO DAILY [facility] Last Admin: 08/10/17 09:42 Dose: Not Given - Labs Labs: 08/10/17 10:16 08/10/17 10:16 Assessment and Plan - Assessment and Plan (Free Text) Plan: 51 Y/O FEMALE WITH PMHX ESRD, HTN, DM 1, PVD ADMITTED FOR LABILE HTN, DIZZINESS, ESRD ON HD DENIES ANY CP, SOB, HEADACHE, SOB, PALPITATION HD DONE TODAY, STABLE FOR D/C HOME CONTINUE HOME MEDS AND HD, F/U WITH PMD IN 1-2 DAYS RETURN TO ER FOR ANY WORSENING S/S AGREE, VERBALIZE UNDERSTANDING
[2017-08-10 17:29] VITALS: PULSE 89; RESP 20; TEMP 98; O2SAT 96
[2017-08-10 18:04] VITALS: BP 136/62
--- NOTE | 2017-08-10 18:53 | CP.PCM.HP ---
History of Present Illness - History of Present Illness History of Present Illness: Chief complaint: Uncontrolled hypertension History of present illness: 51-year-old female with a history of hypertension, end-stage renal disease, was on peritoneal dialysis, converted to hemodialysis, hypercholesterolemia, diabetes, history of pneumonia, history of peripheral vascular disease is clinically looks. Patient had a bilateral leg gangrene, complicated with bilateral below-knee amputation. Patient wound healing well. She came to the office with increasing drainage from the colostomy. Patient does not have any other major active symptoms, including pain. Patient was getting hemodialysis, at that time patient was having significant changes in the blood pressure, episodes of hypertension, and also very low blood pressure noted. Patient is concerned, came to the emergency room. Past medical history: As noted above Surgical history: Patient has a hemodialysis catheter and the right internal jugular vein. Bilateral below-knee amputation. Patient has severe constipation, complicated with colitis, impending rupture, underwent near total colectomy, and colostomy. Allergies: No known drug allergy Personal history: Used to be a smoker in the past, also was using drugs in the past. Denies any alcohol Review of systems Currently having no headache, no chest pain or shortness of breath. Right hemodialysis catheter in the internal jugular vein. Colostomy. Below-knee limitation bilaterally. Vital signs reviewed No neck vein distention noted Chest good air entry bilaterally, no wheezing or rales noted CVS regular heart sound, no murmur noted Abdomen soft, nontender. 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 Renal and a surgical consultation appreciated Assessment and recommendation: 51-year-old female with a history of hypertension, ESRD, on hemodialysis, diabetes, hypertension, hypercholesterolemia, peripheral vascular disease, ischemic legs, status postsurgery. Status post a colostomy, and a colectomy admitted now with increasing Uncontrolled hypertension. Patient will get hemodialysis tomorrow. 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 Will follow-up the patient Present on Admission - Present on Admission Any Indicators Present on Admission: No History of DVT/PE: No History of Uncontrolled Diabetes: No Urinary Catheter: No Decubitus Ulcer Present: No Past Patient History - Infectious Disease Hx of Infectious Diseases: None - Past Medical History & Family History Past Medical History?: Yes Past Family History: Reviewed and not pertinent - Past Social History Smoking Status: Former Smoker Chewing Tobacco Use: No Cigar Use: No Alcohol: None Drugs: Denies Home Situation {Lives}: Long-Term - CARDIAC Hx Congestive Heart Failure: Yes Hx Hypercholesterolemia: Yes Hx Hypertension: Yes - PULMONARY Hx Bronchitis: Yes - NEUROLOGICAL Hx Neurological Disorder: No - HEENT Hx HEENT Problems: No - RENAL Hx Chronic Kidney Disease: Yes - ENDOCRINE/METABOLIC Hx Diabetes Mellitus Type 2: Yes - HEMATOLOGICAL/ONCOLOGICAL Hx Anemia: Yes - INTEGUMENTARY Hx Dermatological Problems: Yes Hx Eczema: Yes - MUSCULOSKELETAL/RHEUMATOLOGICAL Hx Falls: Yes - GASTROINTESTINAL Hx Gastrointestinal Disorders: Yes Hx Colostomy: Yes - GENITOURINARY/GYNECOLOGICAL Hx Genitourinary Disorders: Yes (DX: RENAL FAILURE) - PSYCHIATRIC Hx Anxiety: Yes Hx Substance Use: No - SURGICAL HISTORY Hx Surgeries: Yes Hx Amputation: Yes (RBK) Hx Section: Yes Hx Eye Surgery: Yes (INSERT "GAS" BUBBLE BOTH EYES) Hx Tubal Ligation: Yes Hx Vascular Access Device: Yes (R SC HD cath) Other/Comment: I&D GROIN; 12/30/14 LAPAROSCOPIC INSERTION PERITONEAL DIALYSIS CATHETE over right chest. 01/14/15 REVISION DONE OF PERITIONEAL DIALYSIS CATH. - ANESTHESIA Hx Anesthesia: Yes Hx Anesthesia Reactions: No Hx Malignant Hyperthermia: No Meds Allergies/Adverse Reactions: Allergies Allergy/AdvReac Type Severity Reaction Status Date / Time shrimp Allergy Severe RASH Verified 08/08/17 19:40 Results - Vital Signs Recent Vital Signs: Last Vital Signs Temp 98.0 F 08/10/17 15:00 Pulse 89 08/10/17 15:00 Resp 20 08/10/17 15:00 BP 136/62 08/10/17 18:04 Pulse Ox 96 08/10/17 15:00 - Labs Result Diagrams: 08/10/17 10:16 08/10/17 10:16 Labs: Laboratory Results - last 24 hr 08/09/17 08/10/17 08/10/17 21:40 06:14 10:16 WBC 8.2 RBC 3.63 L Hgb 11.7 Hct 36.5 MCV 100.5 H MCH 32.3 H MCHC 32.1 L RDW 19.4 H Plt Count 211 MPV 9.7 Neut % (Auto) 58.8 Lymph % (Auto) 31.8 [place] % (Auto) 6.6 Eos % (Auto) 2.2 Baso % (Auto) 0.6 Neut # (Auto) 4.8 Lymph # (Auto) 2.6 [place] # (Auto) 0.5 Eos # (Auto) 0.2 Baso # (Auto) 0.0 Sodium Potassium Chloride Carbon Dioxide Anion Gap BUN Creatinine Est GFR ( Amer) Est GFR (Non-Af Amer) POC Glucose (mg/dL) 157 H 106 Random Glucose Calcium Total Bilirubin AST ALT Alkaline Phosphatase Total Protein Albumin Globulin Albumin/Globulin Ratio 08/10/17 08/10/17 10:16 12:16 WBC RBC Hgb Hct MCV MCH MCHC RDW Plt Count MPV Neut % (Auto) Lymph % (Auto) [place] % (Auto) Eos % (Auto) Baso % (Auto) Neut # (Auto) Lymph # (Auto) [place] # (Auto) Eos # (Auto) Baso # (Auto) Sodium 135 Potassium 5.9 H Chloride 96 L Carbon Dioxide 22 Anion Gap 23 H BUN 34 H Creatinine 7.1 H Est GFR ( Amer) 7 Est GFR (Non-Af Amer) 6 POC Glucose (mg/dL) 154 H Random Glucose 173 H Calcium 10.0 Total Bilirubin 0.4 AST 21 ALT 14 Alkaline Phosphatase 86 Total Protein 7.7 Albumin 4.1 Globulin 3.6 Albumin/Globulin Ratio 1.2
--- NOTE | 2017-08-10 18:56 | CP.PCM.DIS ---
Provider - Provider Date of Admission: 08/08/17 22:44 Attending physician: Rod Lord MD Time Spent in preparation of Discharge (in minutes): 45 Hospital Course - Lab Results Lab Results: Most Recent Lab Values WBC 8.2 K/uL (4.8-10.8) 08/10/17 10:16 RBC 3.63 Mil/uL (3.80-5.20) L 08/10/17 10:16 Hgb 11.7 g/dL (11.0-16.0) 08/10/17 10:16 Hct 36.5 % (34.0-47.0) 08/10/17 10:16 MCV 100.5 fL (81.0-99.0) H 08/10/17 10:16 MCH 32.3 pg (27.0-31.0) H 08/10/17 10:16 MCHC 32.1 g/dL (33.0-37.0) L 08/10/17 10: RDW 19.4 % (11.5-14.5) H 08/10/17 10:16 Plt Count 211 K/uL (130-400) 08/10/17 10:16 MPV 9.7 fL (7.2-11.7) 08/10/17 10:16 Neut % (Auto) 58.8 % (50.0-75.0) 08/10/17 10:16 Lymph % (Auto) 31.8 % (20.0-40.0) 08/10/17 10:16 [place] % (Auto) 6.6 % (0.0-10.0) 08/10/17 10:16 Eos % (Auto) 2.2 % (0.0-4.0) 08/10/17 10:16 Baso % (Auto) 0.6 % (0.0-2.0) 08/10/17 10:16 Neut # (Auto) 4.8 K/uL (1.8-7.0) 08/10/17 10:16 Lymph # (Auto) 2.6 K/uL (1.0-4.3) 08/10/17 10:16 [place] # (Auto) 0.5 K/uL (0.0-0.8) 08/10/17 10:16 Eos # (Auto) 0.2 K/uL (0.0-0.7) 08/10/17 10:16 Baso # (Auto) 0.0 K/uL (0.0-0.2) 08/10/17 10:16 Sodium 135 mmol/L (132-148) 08/10/17 10:16 Potassium 5.9 mmol/L (3.6-5.2) H 08/10/17 10:16 Chloride 96 mmol/L (98-107) L 08/10/17 10:16 Carbon Dioxide 22 mmol/L (22-30) 08/10/17 10:16 Anion Gap 23 (10-20) H 08/10/17 10:16 BUN 34 mg/dL (7-17) H 08/10/17 10:16 Creatinine 7.1 mg/dL (0.7-1.2) H 08/10/17 10:16 Est GFR ( Amer) 7 08/10/17 10:16 Est GFR (Non-Af Amer) 6 08/10/17 10:16 POC Glucose (mg/dL) 154 mg/dL (65-110) H 08/10/17 12:16 Random Glucose 173 mg/dL (65-105) H 08/10/17 10:16 Calcium 10.0 mg/dl (8.6-10.4) 08/10/17 10:16 Total Bilirubin 0.4 mg/dL (0.2-1.3) 08/10/17 10:16 AST 21 U/L (14-36) 08/10/17 10:16 ALT 14 U/L (9-52) 08/10/17 10:16 Alkaline Phosphatase 86 U/L (38-126) 08/10/17 10:16 Total Protein 7.7 g/dL (6.3-8.3) 08/10/17 10:16 Albumin 4.1 g/dL (3.5-5.0) 08/10/17 10:16 Globulin 3.6 gm/dL (2.2-3.9) 08/10/17 10:16 Albumin/Globulin Ratio 1.2 (1.0-2.1) 08/10/17 10:16 Serum Ketones Negative (NEGATIVE) 08/08/17 23:13 - Hospital Course Hospital Course: Chief complaint: Uncontrolled blood pressure History of present illness: 51-year-old female with a history of hypertension, end-stage renal disease, was on peritoneal dialysis, converted to hemodialysis, hypercholesterolemia, diabetes, history of pneumonia, history of peripheral vascular disease is clinically looks. Patient had a bilateral leg gangrene, complicated with bilateral below-knee amputation. Patient wound healing well. She came to the office with increasing drainage from the colostomy. Patient does not have any other major active symptoms, including pain. pt is having increasing discomfort and pain in the both hands. because of uncontrolled blood pressure Past medical history: As noted above Surgical history: Patient has a hemodialysis catheter and the right internal jugular vein. Bilateral below-knee amputation. Patient has severe constipation, complicated with colitis, impending rupture, underwent near total colectomy, and colostomy. Allergies: No known drug allergy Personal history: Used to be a smoker in the past, also was using drugs in the past. Denies any alcohol Review of systems Currently having no headache, no chest pain or shortness of breath. Right hemodialysis catheter in the internal jugular vein. Colostomy. Below-knee limitation bilaterally. Vital signs reviewed No neck vein distention noted Chest good air entry bilaterally, no wheezing or rales noted CVS regular heart sound, no murmur noted Abdomen soft, nontender. 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 Patient received hemodialysis yesterday, tomorrow she will get hemodialysis again Renal and a surgical consultation appreciated Assessment and recommendation: 51-year-old female with a history of hypertension, ESRD, on hemodialysis, diabetes, hypertension, hypercholesterolemia, peripheral vascular disease, ischemic legs, status postsurgery. Status post a colostomy, and a colectomy admitted now with uncontrolled blood pressure. Patient was very concerned, because of the labile blood pressure came to the hospital. Patient got the hemodialysis today. Stable. Patient can be discharged home today. Discharge Exam - Head Exam Head Exam: ATRAUMATIC, NORMOCEPHALIC Discharge Plan - Follow Up Plan Condition: FAIR Disposition: HOME/ ROUTINE Instructions: Headache, Adult, Low Blood Sugar, Adult (DC), End Stage Kidney Disease (DC), Hypertension (DC) Additional Instructions: continue home medications, continue HD on /Sat as schedule, f/u with Dr. Rojas in the office in 2-3 days, return to ER for any chest pain, shortness of breath, palpitation or any worsening symptoms. Referrals: Merritt Macdonald MD [Staff Provider] - Rod Lord MD [Staff Provider] -
--- NOTE | 2017-08-11 23:06 | CARD ---
APPROVED REPORT EKG Measurement Heart [id number] <Conclusion> Normal sinus rhythm Left axis deviation Possible Anterior infarct, age undetermined Abnormal ECG
== END 2017-08-10 19:11 | disposition home or self-care (01) ==
LOC: C.ER 19:22 → C.5S 22:44 → C.9E 22:44
PROVIDERS: ADMIT Internal Medicine; ATTEND Internal Medicine
DX: I13.2 Hypertensive heart and chronic kidney disease with heart failure and with stage 5 chronic kidney disease, or end stage renal disease (principal); Z99.2 Dependence on renal dialysis; N18.6 End stage renal disease; I50.9 Heart failure, unspecified; E78.00 Pure hypercholesterolemia, unspecified; D64.9 Anemia, unspecified; F41.9 Anxiety disorder, unspecified; Z87.891 Personal history of nicotine dependence; Z93.3 Colostomy status; Z89.512 Acquired absence of left leg below knee; Z89.511 Acquired absence of right leg below knee; Z90.49 Acquired absence of other specified parts of digestive tract; K59.00 Constipation, unspecified; Z91.013 Allergy to seafood; E10.21 Type 1 diabetes mellitus with diabetic nephropathy; E10.649 Type 1 diabetes mellitus with hypoglycemia without coma; E10.22 Type 1 diabetes mellitus with diabetic chronic kidney disease; E10.51 Type 1 diabetes mellitus with diabetic peripheral angiopathy without gangrene; E10.40 Type 1 diabetes mellitus with diabetic neuropathy, unspecified
CPT/HCPCS: 36415; 70450; 71045; 80053; 82009; 82948; 85025; 90970; 93005; 96374; 99284; G0257; G0378; J1644; J1885

== ENCOUNTER 2017-08-14 19:29 | Inpatient (IN) | payer OTHER ==
[2017-08-14 19:29] VITALS: BMI 26.9
--- NOTE | 2017-08-14 19:48 | C.PDOC ---
History Of Present Illness 51 y/o female brought to ER by ambulance complaining of weakness and numbness in her bilateral arms which has been present since 10 pm last night. Patient states that she put some nitro paste on her arms. Patient reports that she came to the ER because she cannot move her arms. She denies having trauma, fall, fever,chills, nausea, vomiting, and diarrhea. Of note, EMS spoke with the neighbor because patient was screaming when ambulance arrived.Pt denied that she had a fall. Patient was in a wheelchair and she could not open the door when the medics arrived. Time Seen by Provider: 08/14/17 19:48 Chief Complaint (Nursing): Weakness/Neurological Deficit History Per: Patient History/Exam Limitations: no limitations Onset/Duration Of Symptoms: Days Current Symptoms Are (Timing): Still Present Severity: Severe Pain Scale Rating Of: 9 Recent travel outside of the [place] States: No Additional History Per: EMS, Family - Symptoms Of CVA Character Of Deficits: Left: Weakness, Right: Weakness, Arm: Weakness Recent Aspirin Use: No Current Coumadin Use?: No Recent Head Trauma: No Past Medical History Reviewed: Historical Data, Nursing Documentation, Vital Signs Vital Signs: Last Vital Signs Temp 97.5 F L 08/14/17 19:42 Pulse 78 08/14/17 22:22 Resp 17 08/14/17 22:22 BP 173/76 H 08/14/17 22:22 Pulse Ox 100 08/14/17 22:22 - Medical History PMH: Anemia, Anxiety, Bronchitis, CHF, Diabetes, HTN, Hypercholesterolemia, End Stage Renal Disease (PD), Chronic Kidney Disease Denies: Pneumonia Surgical History: - [facility] (07/24/17) BYPASS RIGHT FEMORAL ARTERY TO POPLIT ART, OPEN APPROACH (10/26/16) CREATE CUTANPERITON FIST (12/30/14) DETACHMENT AT LEFT LOWER LEG, HIGH, OPEN APPROACH (05/03/17) DETACHMENT AT RIGHT FOOT, PARTIAL 1ST RAY, OPEN APPROACH (02/04/17) DETACHMENT AT RIGHT FOOT, PARTIAL 2ND RAY, OPEN APPROACH (02/04/17) DETACHMENT AT RIGHT FOOT, PARTIAL 3RD RAY, OPEN APPROACH (02/04/17) DETACHMENT AT RIGHT FOOT, PARTIAL 4TH RAY, OPEN APPROACH (02/04/17) DETACHMENT AT RIGHT FOOT, PARTIAL 5TH RAY, OPEN APPROACH (02/04/17) DETACHMENT AT RIGHT KNEE REGION, OPEN APPROACH (02/04/17) DILATION OF R COM ILIAC ART WITH INTRALUM DEV, PERC APPROACH (10/26/16) EXCISION OF RIGHT FOOT SKIN, EXTERNAL APPROACH (02/04/17) EXCISION OF SIGMOID COLON, OPEN APPROACH (02/04/17) FLUOROSCOPY OF LEFT HEART USING LOW OSMOLAR CONTRAST (10/26/16) FLUOROSCOPY OF MULT COR ART USING L OSM CONTRAST (10/26/16) HEMODIALYSIS (11/06/14) INSERTION OF INFUSION DEV INTO R SUBCLAV VEIN, PERC APPROACH (02/04/17) INSERTION OF INFUSION DEV INTO SUP VENA CAVA, PERC APPROACH (02/04/17) INSPECTION OF LOWER INTESTINAL TRACT, ENDO (07/24/17) IRRIGATION OF PERITON CAV USING DIALYSATE, PERC APPROACH (05/03/17) LAPAROSCOP LYSIS-PERITONEAL ADHES (12/30/14) MEASURE OF CARDIAC SAMPL & PRESSURE, L HEART, PERC APPROACH (10/26/16) PLAIN RADIOGRAPHY OF AORTA, BI LE ART USING L OSM CONTRAST (10/26/16) REMOVAL OF INFUSION DEVICE FROM GREAT VESSEL, PERC APPROACH (02/04/17) TRANSFUSE NONAUT RED BLOOD CELLS IN PERIPH VEIN, PERC (02/04/17) VASCULAR CATH IRRIGATION (01/14/15) VENOUS CATHETERIZATION FOR RENAL DIALYSIS (11/06/14) Family History: States: No Known Family Hx - Social History Hx Tobacco Use: Yes Hx Alcohol Use: No Hx Substance Use: No - Immunization History Hx Tetanus Toxoid Vaccination: Yes Hx Influenza Vaccination: No Hx Pneumococcal Vaccination: No Review Of Systems Constitutional: Negative for: Fever, Chills Gastrointestinal: Negative for: Nausea, Vomiting, Diarrhea Neurological: Positive for: Weakness (bilateral arms), Numbness (bilateral arms) Physical Exam - Physical Exam Appears: In Acute Distress Skin: Dry, Pale Head: Normacephalic Eye(s): bilateral: Normal Inspection Oral Mucosa: Dry Lips: Other (dry) Neck: Trachea Midline, Supple Chest: Symmetrical (dialysis shunt in right chest wall), Other Cardiovascular: Rhythm Irregular Respiratory: No Accessory Muscle Use, No Rales, Rhonchi (scattered rhonchi), No Wheezing Gastrointestinal/Abdominal: Soft, Tenderness (mild), Other (colostomy in RLQ, visible surgical site where a peritoneal dialysis shunt was placed ) Back: Normal Inspection Extremity: Other (bilateral BKA's) Extremity: Bilateral: Other (bka) Neurological/Psych: Oriented x3, Normal Speech, Other (b/l arm plegia) Gait: Unable To Assess Extremity: Right: No Effort Against [place], Left: No Effort Against [place], Upper: No Effort Against [place] ED Course And Treatment - Laboratory Results Result Diagrams: 08/14/17 20:52 08/14/17 21:27 ECG: Interpreted By Me, Viewed By Me ECG Rhythm: Sinus Tachycardia Interpretation Of EC:54 1st EKG - sine wave indicative of hyperkalemia. 2nd EKG- Sinus Tachycardia with IVC, non-specific ST changes Rate From EC O2 Sat by Pulse Oximetry: 100 (RA) Pulse Ox Interpretation: Normal - Radiology CXR: Interpreted by Me, Viewed By Me CXR Interpretation: Yes: Other (port r chest). No: Infiltrates, Fracture, Cardiomegaly Progress Note: 20:12 Labs, CXR, and CT- Head ordered. IV Fluids given to patient. 20:20 Case discussed with neurologist . 21:[address] Goldman for stat dialysis. After amp bicarbonate, EKG is sinus. 2130 much improved . awaitng hd nurse Critical Care Time - Critical Care Note Total Time (in mins): 90 Documented critical care: time excludes all time spent performing seperately billable procedures. Disposition Discussed With : Rod Lord Comment: acceetped the pt on his service and took over the care at 10:30PM Doctor Will See Patient In The: Hospital Counseled Patient/Family Regarding: Studies Performed, Diagnosis - Disposition Disposition: HOSPITALIZED Disposition Time: 19:48 Condition: CRITICAL Forms: [facility] (I[place]ic) - POA Present On Arrival: Poor Glycemic Control - Clinical Impression Clinical Impression: Muscle weakness, Anxiety, S/P BKA (below knee amputation) bilateral, Labile hypertension, Hyperkalemia, ESRD needing dialysis - Scribe Statement The provider has reviewed the documentation as recorded by the Hannahibabram Watts Provider Attestation: All medical record entries made by the Scribe were at my direction and personally dictated by me. I have reviewed the chart and agree that the record accurately reflects my personal performance of the history, physical exam, medical decision making, and the department course for this patient. I have also personally directed, reviewed, and agree with the discharge instructions and disposition. Decision To Admit - Pt Status Changed To: Hospital Disposition Of: Inpatient - Admit Certification Admit to Inpatient:: After my assessment, the patient will require hospitalization for at least two midnights. This is because of the severity of symptoms shown, intensity of services needed, and/or the medical risk in this patient being treated as an outpatient. - InPatient: Physician Admission Certification: I certify that this patient requires 2 or more midnights of care for the following reason:: After my assessment, the patient will require hospitalization for at least two midnights. This is because of the severity of symptoms shown, intensity of services needed, and/or the medical risk in this patient being treated as an outpatient. - . Bed Request Type: Telemetry Admitting Physician: Rod Lord Patient Diagnosis: Muscle weakness, Anxiety, S/P BKA (below knee amputation) bilateral, Labile hypertension, Hyperkalemia, ESRD needing dialysis
--- NOTE | 2017-08-14 20:40 | CT ---
EXAM: CT Head Without Intravenous Contrast EXAM DATE/TIME: Exam ordered 08/14/2017 7:36 PM CLINICAL HISTORY: 51 years old, female; Signs and symptoms; Numbness / parasthesia; Bilateral TECHNIQUE: Axial computed tomography images of the head/brain without intravenous contrast. All CT scans at this facility use one or more dose reduction techniques, viz.: automated exposure control; ma/kV adjustment per patient size (including targeted exams where dose is matched to indication; i.e. head); or iterative reconstruction technique. Coronal and sagittal reformatted images were created and reviewed. COMPARISON: CT - HEAD W/O CONTRAST 2017-08-08 22:12 FINDINGS: Brain: There is low density noted within the periventricular white matter No hemorrhage. Ventricles: Unremarkable. No ventriculomegaly. Bones/joints: Unremarkable. No acute fracture. Soft tissues: Unremarkable. Sinuses: Unremarkable as visualized. No acute sinusitis. Mastoid air cells: Unremarkable as visualized. No mastoid effusion. IMPRESSION: 1. No acute findings. 2. Mild chronic small vessel ischemic change suggested in the periventricular white matter
[2017-08-14] MEDS ORDERED: Calcium Gluconate 4.65 mEq/10 ml Inj ONE (20:56)
[2017-08-14 20:57] LABS: BASO # 0.1 K/uL (0.0-0.2); BASO % 1.5 % (0.0-2.0); EOS # 0.2 K/uL (0.0-0.7); EOS % 1.9 % (0.0-4.0); HEMOGLOBIN 12.6 g/dL (11.0-16.0); MEAN CELL VOLUME 105.8 fL (81.0-99.0); MEAN CORPUSCULAR HEMOGLOBIN 32.6 pg (27.0-31.0); MEAN CORPUSCULAR HGB CONC 30.8 g/dL (33.0-37.0); MEAN PLATELET VOLUME 9.9 fL (7.2-11.7); MONO # 0.8 K/uL (0.0-0.8); MONO % 8.9 % (0.0-10.0); NEUT % 54.7 % (50.0-75.0); NRBC % 0.1 % (0.0-2.0); RBC 3.85 Mil/uL (3.80-5.20); RED CELL DISTRIBUTION WIDTH 20.1 % (11.5-14.5); WHITE BLOOD COUNT 9.1 K/uL (4.8-10.8)
[2017-08-14] MEDS: Sodium Chloride 0.9% 1,000 ML IV SCH (21:13)
[2017-08-14] MEDS ORDERED: Sodium Bicarbonate (8.4%) 50 Meq Syringe IVP STA (21:17)
[2017-08-14] MEDS ORDERED: Calcium Gluconate 4.65 MEQ in Dextrose 5% In Water 100 ML IVPB STA (21:17)
[2017-08-14] MEDS ORDERED: (Novolin R) Insulin Human Regular 100 units/ml vial IV ONE (21:19)
[2017-08-14] MEDS ORDERED: Dextrose 50% SYRINGE Inj (50 ml) IV STA (21:19)
[2017-08-14] MEDS ORDERED: Dextrose 50% VIAL Inj (50 ml) IV ONE (21:20)
[2017-08-14] MEDS ORDERED: (Novolin R) Insulin Human Regular 100 units/ml vial ONE (21:20)
[2017-08-14] MEDS ORDERED: Albuterol-Ipratrop 3 mg / 0.5 (3 ml) UD ONE (21:32)
[2017-08-14] MEDS ORDERED: Albuterol 0.083% Inhal Sol (2.5 mg/3 mL) UD ONE (21:32)
[2017-08-14 21:35] LABS: INR 0.9
[2017-08-14 21:42] LABS: CALCIUM 9.6 mg/dl (8.6-10.4)
[2017-08-14] MEDS: Albuterol-Ipratrop 3 mg / 0.5 (3 ml) UD IH SCH (22:02)
[2017-08-15] MEDS: (Novolin R) Insulin Human Regular 100 units/ml vial SC SCH ×4 (07:28→21:33)
[2017-08-15] MEDS: Sodium Chloride 0.9% 1,000 ML IV SCH ×2 (08:43→17:31)
[2017-08-15] MEDS ORDERED: Vancomycin 1 gm/NS 200 ml 1 GM/200 ML BAG IVPB ONE (09:00)
--- NOTE | 2017-08-15 09:13 | RAD ---
Chest x-ray single frontal view History: Weakness. Comparison: 08/08/2017 Findings Lines and tubes in stable position. Mild patchy increased markings at the left lung base, nonspecific. Heart size within normal limits. Impression: Mild patchy increased markings at the left lung base, nonspecific.
[2017-08-15] MEDS: Multivitamin Vitamin B Complex (Nephro-Vite) Tab PO SCH (10:30)
--- NOTE | 2017-08-15 10:32 | CP.PCM.CON ---
History of Present Illness - History of Present Illness History of Present Illness: 51 y/o female brought to ER by ambulance complaining of weakness and numbness in her bilateral arms which has been present since 10 pm last night. Patient states that she put some nitro paste on her arms. Patient reports that she came to the ER because she cannot move her arms. She denies having trauma, fall, fever,chills, nausea, vomiting, and diarrhea. Of note, EMS spoke with the neighbor because patient was screaming when ambulance arrived.Pt denied that she had a fall. Patient was in a wheelchair and she could not open the door when the medics arrived. Dialyzed last PM due to hyperkalemic emergency- K was 10.4 and pt partially paralyzed Will reschedule dialysis now again Repeat chemistries. PSH: ESRD DIABETIC NEPHROPATHY PVD HTN DM 1 PSH: PD CATH PLACEMENT AND REMOVAL COLOSTOMY BILATERAL BKA Review of Systems - Constitutional Constitutional: Lethargy, Weakness - EENT Eyes: absent: As Per HPI, Blind Spots, Blurred Vision, Change in Vision, Decreased Night Vision, Diplopia, Discharge, Dry Eye, Exophthalmos, Floaters, Irritation, Itchy Eyes, Loss of Peripheral Vision, Pain, Photophobia, Requires Corrective Lenses, Sees Flashes, Spots in Vision, Tunnel Vision, Other Visual Disturbances, Loss of Vision, Other Ears: absent: As Per HPI, Decreased Hearing, Ear Discharge, Ear Pain, Tinnitus, Abnormal Hearing, Disequilibrium, Dizziness, Other Nose/Mouth/Throat: absent: As Per HPI, Epistaxis, Nasal Congestion, Nasal Discharge, Nasal Obstruction, Nasal Trauma, Nose Pain, Post Nasal Drip, Sinus Pain, Sinus Pressure, Bleeding Gums, Change in Voice, Dental Pain, Dry Mouth, Dysphagia, Halitosis, Hoarsness, Lip Swelling, Mouth Lesions, Mouth Pain, Odynophagia, Sore Throat, Throat Swelling, Tongue Swelling, Facial Pain, Neck Pain, Neck Mass, Other - Cardiovascular Cardiovascular: Dyspnea on Exertion - Respiratory Respiratory: Cough, Dyspnea on Exertion - Gastrointestinal Gastrointestinal: Constipation, Cramping - Genitourinary Genitourinary: As Per HPI - Musculoskeletal Musculoskeletal: Muscle Cramps, Muscle Weakness, Myalgias - Integumentary Integumentary: absent: As Per HPI, Acne, Alopecia, Bleeding Lesions, Change in Hair, Change in Nails, Change in Pigmentation, Changing Lesions, Dry Skin, Erythema, Furuncle, Hirsutism, Lesions, New Lesions, Non-Healing Lesions, Photosensitivity, Pruritus, Rash, Skin Pain, Skin Ulcer, Sores, Striae, Swelling , Unusual Bruising, Wounds, Jaundice, Other - Neurological Neurological: Weakness Past Patient History - Infectious Disease Hx of Infectious Diseases: None - Past Medical History & Family History Past Medical History?: Yes - Past Social History Smoking Status: Former Smoker Chewing Tobacco Use: No Cigar Use: No Alcohol: None Drugs: Denies Home Situation {Lives}: Alf - CARDIAC Hx Congestive Heart Failure: Yes Hx Hypercholesterolemia: Yes Hx Hypertension: Yes - PULMONARY Hx Bronchitis: Yes Hx Pneumonia: No - NEUROLOGICAL Hx Neurological Disorder: No - HEENT Hx HEENT Problems: No - RENAL Hx Chronic Kidney Disease: Yes - ENDOCRINE/METABOLIC Hx Diabetes Mellitus Type 2: Yes - HEMATOLOGICAL/ONCOLOGICAL Hx Anemia: Yes - INTEGUMENTARY Hx Dermatological Problems: Yes Hx Eczema: Yes - MUSCULOSKELETAL/RHEUMATOLOGICAL Hx Falls: No (doesnt want to answer question) - GASTROINTESTINAL Hx Gastrointestinal Disorders: Yes Hx Colostomy: Yes - GENITOURINARY/GYNECOLOGICAL Hx Genitourinary Disorders: Yes (DX: RENAL FAILURE) - PSYCHIATRIC Hx Substance Use: No - SURGICAL HISTORY Hx Surgeries: Yes Hx Amputation: Yes (RBK) Hx Section: Yes Hx Eye Surgery: Yes (INSERT "GAS" BUBBLE BOTH EYES) Hx Tubal Ligation: Yes Hx Vascular Access Device: Yes (R SC HD cath) Other/Comment: I&D GROIN; 12/30/14 LAPAROSCOPIC INSERTION PERITONEAL DIALYSIS CATHETE over right chest. 01/14/15 REVISION DONE OF PERITIONEAL DIALYSIS CATH. 08/15/17 0230 - Patient refusing to give further information at this time - ANESTHESIA Hx Anesthesia: Yes Hx Anesthesia Reactions: No Hx Malignant Hyperthermia: No Meds Allergies/Adverse Reactions: Allergies Allergy/AdvReac Type Severity Reaction Status Date / Time shrimp Allergy Severe RASH Verified 08/14/17 19:34 - Medications Medications: Current Medications Acetaminophen (Tylenol 325mg Tab) 650 mg PO Q8H PRN PRN Reason: Pain, Mild (1-3) or Temp>100.4 Amlodipine Besylate (Norvasc) 2.5 mg PO DAILY [facility] Last Admin: 08/15/17 09:29 Dose: 2.5 mg Aspirin (Ecotrin) 81 mg PO DAILY [facility] Last Admin: 08/15/17 09:29 Dose: 81 mg Carvedilol (Coreg) 12.5 mg PO BID [facility] Last Admin: 08/15/17 09:00 Dose: 12.5 mg Clopidogrel Bisulfate (Plavix) 75 mg PO DAILY [facility] Last Admin: 08/15/17 09:34 Dose: 75 mg Famotidine (Pepcid) 20 mg PO DAILY [facility] Last Admin: 08/15/17 09:27 Dose: 20 mg Gabapentin (Neurontin) 100 mg PO Q12 [facility] Last Admin: 08/15/17 09:28 Dose: 100 mg Sodium Chloride (Sodium Chloride 0.9%) 1,000 mls @ 100 mls/hr IV .Q10H [facility] Last Admin: 08/15/17 08:43 Dose: 100 mls/hr Vancomycin/Sodium Chloride (Vancomycin 1 Gm/Ns 200 Ml) 1 gm in 200 mls @ 133.333 mls/hr IVPB ONCE ONE PRN Reason: Protocol Stop: 08/15/17 10:29 Insulin Glargine (Lantus) 10 unit SC [facility] Insulin Human Regular (Novolin R) 0 unit SC ACHS [facility] PRN Reason: Protocol Last Admin: 08/15/17 07:28 Dose: Not Given Rosuvastatin Calcium (Crestor) 10 mg PO [facility] Vitamin B Complex/Vit C/Folic Acid (Nephro-Cony) 1 tab PO DAILY [facility] Physical Exam - Constitutional Appears: No Acute Distress, Chronically Ill - Head Exam Head Exam: ATRAUMATIC, NORMAL INSPECTION - Eye Exam Eye Exam: EOMI, Normal appearance - Neck Exam Neck exam: Positive for: Normal Inspection. Negative for: Tenderness - Respiratory Exam Respiratory Exam: Clear to Auscultation Bilateral, NORMAL BREATHING PATTERN - Cardiovascular Exam Cardiovascular Exam: REGULAR RHYTHM, +S1 - GI/Abdominal Exam GI & Abdominal Exam: Soft. absent: Tenderness - Extremities Exam Extremities exam: Positive for: calf tenderness, tenderness - Neurological Exam Neurological exam: Alert, CN II-XII Intact - Skin Skin Exam: Dry, Warm Results - Vital Signs Recent Vital Signs: Last Vital Signs Temp 98.0 F 08/15/17 07:05 Pulse 86 08/15/17 07:05 Resp 20 08/15/17 07:05 BP 152/67 H 08/15/17 09:00 Pulse Ox 97 08/15/17 07:05 - Labs Result Diagrams: 08/14/17 20:52 08/14/17 21:27 Labs: Laboratory Results - last 24 hr 08/14/17 08/14/17 08/14/17 20:52 20:52 21:08 WBC 9.1 RBC 3.85 Hgb 12.6 Hct 40.8 MCV 105.8 H D MCH 32.6 H MCHC 30.8 L RDW 20.1 H Plt Count 170 MPV 9.9 Neut % (Auto) 54.7 Lymph % (Auto) 33.0 [place] % (Auto) 8.9 Eos % (Auto) 1.9 Baso % (Auto) 1.5 Neut # (Auto) 5.0 Lymph # (Auto) 3.0 [place] # (Auto) 0.8 Eos # (Auto) 0.2 Baso # (Auto) 0.1 PT 10.0 INR 0.9 APTT 35 H Sodium Potassium Chloride Carbon Dioxide Anion Gap BUN Creatinine Est GFR ( Amer) Est GFR (Non-Af Amer) Random Glucose Hemoglobin A1c 7.7 H D Calcium Total Bilirubin AST ALT Alkaline Phosphatase Troponin I NT-Pro-B Natriuret Pep Total Protein Albumin Globulin Albumin/Globulin Ratio Triglycerides Cholesterol LDL Cholesterol Direct HDL Cholesterol Blood Type Antibody Screen 08/14/17 08/14/17 08/14/17 21:08 21:27 21:29 WBC RBC Hgb Hct MCV MCH MCHC RDW Plt Count MPV Neut % (Auto) Lymph % (Auto) [place] % (Auto) Eos % (Auto) Baso % (Auto) Neut # (Auto) Lymph # (Auto) [place] # (Auto) Eos # (Auto) Baso # (Auto) PT INR APTT Sodium 132 Potassium 10.4 H* D Chloride 108 H Carbon Dioxide 9 L* D Anion Gap 25 H BUN 62 H Creatinine 11.9 H* D Est GFR ( Amer) 4 Est GFR (Non-Af Amer) 3 Random Glucose 164 H Hemoglobin A1c Calcium 9.6 Total Bilirubin 0.7 AST 46 H D ALT 26 Alkaline Phosphatase 104 Troponin I < 0.0120 NT-Pro-B Natriuret Pep 6910 H Total Protein 8.1 Albumin 4.0 Globulin 4.0 H Albumin/Globulin Ratio 1.0 Triglycerides 176 H Cholesterol 113 LDL Cholesterol Direct 35 HDL Cholesterol 35 Blood Type O POSITIVE Antibody Screen Negative Assessment & Plan (1) PVD (peripheral vascular disease) Status: Acute (2) ESRD needing dialysis Status: Acute (3) S/P BKA (below knee amputation) bilateral Status: Acute (4) Type 1 diabetes mellitus with diabetic nephropathy Status: Acute - Assessment and Plan (Free Text) Plan: REPEAT DIALYSIS AND RECHECK CHEMISTRIES
[2017-08-15 11:24] LABS: HEMOGLOBIN 11.7 g/dL (11.0-16.0); MEAN CELL VOLUME 100.2 fL (81.0-99.0); MEAN CORPUSCULAR HEMOGLOBIN 32.6 pg (27.0-31.0); MEAN CORPUSCULAR HGB CONC 32.5 g/dL (33.0-37.0); MEAN PLATELET VOLUME 9.6 fL (7.2-11.7); RBC 3.58 Mil/uL (3.80-5.20); RED CELL DISTRIBUTION WIDTH 20.6 % (11.5-14.5); WHITE BLOOD COUNT 6.9 K/uL (4.8-10.8)
--- NOTE | 2017-08-15 19:58 | CP.PCM.HP ---
History of Present Illness - History of Present Illness History of Present Illness: Chief complaint: AMS History of present illness: 51-year-old female with a history of hypertension, end-stage renal disease, was on peritoneal dialysis, converted to hemodialysis, hypercholesterolemia, diabetes, history of pneumonia, history of peripheral vascular disease. Patient had a bilateral leg gangrene, complicated with bilateral below-knee amputation. Patient does not have any other major active symptoms, including pain. pt came to office on Saturday and at that time she told me that she missed her dialysis. Pt suppose to have the HD again at the center and pt did not go. last night she was screaming for help and neighbour called ambulance and at that time she was more drowsy and unable to move the UE. IN ER concerned about stroke but after in the monitor she was having severe arrhythmia and suspected hyperkalemic changes and treatment given and urger HD done in ER. Pt improved I spoke to her son and explained this life threatening event because of her missing HD and very non compliance with treatment. also she has some abdominal wall skin changed Past medical history: As noted above Surgical history: Patient has a hemodialysis catheter and the right internal jugular vein. Bilateral below-knee amputation bilateral Patient has severe constipation, complicated with colitis, impending rupture, underwent near total colectomy, and colostomy. Allergies: No known drug allergy Personal history: Used to be a smoker in the past, also was using drugs in the past. Denies any alcohol Review of systems Currently having no headache, no chest pain or shortness of breath. Right hemodialysis catheter in the internal jugular vein. Colostomy. Below-knee limitation bilaterally. Vital signs reviewed No neck vein distention noted Chest good air entry bilaterally, no wheezing or rales noted CVS regular heart sound, no murmur noted Abdomen soft, nontender. 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 [facility] alert awake oriented -3, no functional neurological deficit Patient's current labs revealed nonspecific. Renal and a surgical consultation appreciated Assessment and recommendation: 51-year-old female with a history of hypertension, ESRD, on hemodialysis, diabetes, hypertension, hypercholesterolemia, peripheral vascular disease, ischemic legs, status postsurgery. Status post a colostomy, and a colectomy admitted now with increasing Uncontrolled hypertension. severe hyperkalemia non compliance r/o abd wall cellulitis get culture Present on Admission - Present on Admission Any Indicators Present on Admission: No History of DVT/PE: No History of Uncontrolled Diabetes: No Urinary Catheter: No Decubitus Ulcer Present: No Past Patient History - Infectious Disease Hx of Infectious Diseases: None - Past Medical History & Family History Past Medical History?: Yes - Past Social History Smoking Status: Former Smoker Chewing Tobacco Use: No Cigar Use: No Alcohol: None Drugs: Denies Home Situation {Lives}: Prison - CARDIAC Hx Congestive Heart Failure: Yes Hx Hypercholesterolemia: Yes Hx Hypertension: Yes - PULMONARY Hx Bronchitis: Yes Hx Pneumonia: No - NEUROLOGICAL Hx Neurological Disorder: No - HEENT Hx HEENT Problems: No - RENAL Hx Chronic Kidney Disease: Yes - ENDOCRINE/METABOLIC Hx Diabetes Mellitus Type 2: Yes - HEMATOLOGICAL/ONCOLOGICAL Hx Anemia: Yes - INTEGUMENTARY Hx Dermatological Problems: Yes Hx Eczema: Yes - MUSCULOSKELETAL/RHEUMATOLOGICAL Hx Falls: No (doesnt want to answer question) - GASTROINTESTINAL Hx Gastrointestinal Disorders: Yes Hx Colostomy: Yes - GENITOURINARY/GYNECOLOGICAL Hx Genitourinary Disorders: Yes (DX: RENAL FAILURE) - PSYCHIATRIC Hx Substance Use: No - SURGICAL HISTORY Hx Surgeries: Yes Hx Amputation: Yes (RBK) Hx Section: Yes Hx Eye Surgery: Yes (INSERT "GAS" BUBBLE BOTH EYES) Hx Tubal Ligation: Yes Hx Vascular Access Device: Yes (R SC HD cath) Other/Comment: I&D GROIN; 12/30/14 LAPAROSCOPIC INSERTION PERITONEAL DIALYSIS CATHETE over right chest. 01/14/15 REVISION DONE OF PERITIONEAL DIALYSIS CATH. 08/15/17 0230 - Patient refusing to give further information at this time - ANESTHESIA Hx Anesthesia: Yes Hx Anesthesia Reactions: No Hx Malignant Hyperthermia: No Meds Allergies/Adverse Reactions: Allergies Allergy/AdvReac Type Severity Reaction Status Date / Time shrimp Allergy Severe RASH Verified 08/14/17 19:34 Results - Vital Signs Recent Vital Signs: Last Vital Signs Temp 97.8 F 08/15/17 14:30 Pulse 92 H 08/15/17 14:30 Resp 18 08/15/17 14:30 BP 137/79 08/15/17 19:23 Pulse Ox 97 08/15/17 07:05 - Labs Result Diagrams: 08/15/17 11:17 08/15/17 11:17 Labs: Laboratory Results - last 24 hr 08/14/17 08/14/17 08/14/17 20:52 20:52 21:08 WBC 9.1 RBC 3.85 Hgb 12.6 Hct 40.8 MCV 105.8 H D MCH 32.6 H MCHC 30.8 L RDW 20.1 H Plt Count 170 MPV 9.9 Neut % (Auto) 54.7 Lymph % (Auto) 33.0 [place] % (Auto) 8.9 Eos % (Auto) 1.9 Baso % (Auto) 1.5 Neut # (Auto) 5.0 Lymph # (Auto) 3.0 [place] # (Auto) 0.8 Eos # (Auto) 0.2 Baso # (Auto) 0.1 PT 10.0 INR 0.9 APTT 35 H Sodium Potassium Chloride Carbon Dioxide Anion Gap BUN Creatinine Est GFR ( Amer) Est GFR (Non-Af Amer) POC Glucose (mg/dL) Random Glucose Hemoglobin A1c 7.7 H D Calcium Total Bilirubin AST ALT Alkaline Phosphatase Troponin I NT-Pro-B Natriuret Pep Total Protein Albumin Globulin Albumin/Globulin Ratio Triglycerides Cholesterol LDL Cholesterol Direct HDL Cholesterol Blood Type Antibody Screen 08/14/17 08/14/17 08/14/17 21:08 21:27 21:29 WBC RBC Hgb Hct MCV MCH MCHC RDW Plt Count MPV Neut % (Auto) Lymph % (Auto) [place] % (Auto) Eos % (Auto) Baso % (Auto) Neut # (Auto) Lymph # (Auto) [place] # (Auto) Eos # (Auto) Baso # (Auto) PT INR APTT Sodium 132 Potassium 10.4 H* D Chloride 108 H Carbon Dioxide 9 L* D Anion Gap 25 H BUN 62 H Creatinine 11.9 H* D Est GFR ( Amer) 4 Est GFR (Non-Af Amer) 3 POC Glucose (mg/dL) Random Glucose 164 H Hemoglobin A1c Calcium 9.6 Total Bilirubin 0.7 AST 46 H D ALT 26 Alkaline Phosphatase 104 Troponin I < 0.0120 NT-Pro-B Natriuret Pep 6910 H Total Protein 8.1 Albumin 4.0 Globulin 4.0 H Albumin/Globulin Ratio 1.0 Triglycerides 176 H Cholesterol 113 LDL Cholesterol Direct 35 HDL Cholesterol 35 Blood Type O POSITIVE Antibody Screen Negative 08/15/17 08/15/17 08/15/17 11:17 11:17 11:31 WBC 6.9 RBC 3.58 L Hgb 11.7 Hct 35.9 MCV 100.2 H D MCH 32.6 H MCHC 32.5 L RDW 20.6 H Plt Count 187 MPV 9.6 Neut % (Auto) Lymph % (Auto) [place] % (Auto) Eos % (Auto) Baso % (Auto) Neut # (Auto) Lymph # (Auto) [place] # (Auto) Eos # (Auto) Baso # (Auto) PT INR APTT Sodium 137 Potassium 6.5 H* D Chloride 102 Carbon Dioxide 20 L Anion Gap 22 H BUN 36 H Creatinine 8.4 H* D Est GFR ( Amer) 6 Est GFR (Non-Af Amer) 5 POC Glucose (mg/dL) 139 H Random Glucose 91 Hemoglobin A1c Calcium 9.0 Total Bilirubin AST ALT Alkaline Phosphatase Troponin I NT-Pro-B Natriuret Pep Total Protein Albumin Globulin Albumin/Globulin Ratio Triglycerides Cholesterol LDL Cholesterol Direct HDL Cholesterol Blood Type Antibody Screen 08/15/17 19:20 WBC RBC Hgb Hct MCV MCH MCHC RDW Plt Count MPV Neut % (Auto) Lymph % (Auto) [place] % (Auto) Eos % (Auto) Baso % (Auto) Neut # (Auto) Lymph # (Auto) [place] # (Auto) Eos # (Auto) Baso # (Auto) PT INR APTT Sodium Potassium Chloride Carbon Dioxide Anion Gap BUN Creatinine Est GFR ( Amer) Est GFR (Non-Af Amer) POC Glucose (mg/dL) 106 Random Glucose Hemoglobin A1c Calcium Total Bilirubin AST ALT Alkaline Phosphatase Troponin I NT-Pro-B Natriuret Pep Total Protein Albumin Globulin Albumin/Globulin Ratio Triglycerides Cholesterol LDL Cholesterol Direct HDL Cholesterol Blood Type Antibody Screen
[2017-08-15] MEDS: (Lantus) Insulin Glargine, Recombinant SC SCH (21:40)
--- NOTE | 2017-08-15 23:32 | CP.PCM.CON ---
History of Present Illness - History of Present Illness History of Present Illness: 51 yr old woman with pmh of htn, esrd on dialysis, hypercholesterolemia, dm, bl bka, who was initially called as code stroke with inablity to move both her arms for 10 hours. She was not a tpa candidate, and her symptoms resolved inthe Er. we admitted her and monitored her, and her weakness is now completely rsolved and has been for over 12 hours. PMH/PSH: FH/SH: All: on exam: neurological exam is normal except for bilateral bka. Past Patient History - Infectious Disease Hx of Infectious Diseases: None - Past Medical History & Family History Past Medical History?: Yes - Past Social History Smoking Status: Former Smoker Chewing Tobacco Use: No Cigar Use: No Alcohol: None Drugs: Denies Home Situation {Lives}: Custodial - CARDIAC Hx Congestive Heart Failure: Yes Hx Hypercholesterolemia: Yes Hx Hypertension: Yes - PULMONARY Hx Bronchitis: Yes Hx Pneumonia: No - NEUROLOGICAL Hx Neurological Disorder: No - HEENT Hx HEENT Problems: No - RENAL Hx Chronic Kidney Disease: Yes - ENDOCRINE/METABOLIC Hx Diabetes Mellitus Type 2: Yes - HEMATOLOGICAL/ONCOLOGICAL Hx Anemia: Yes - INTEGUMENTARY Hx Dermatological Problems: Yes Hx Eczema: Yes - MUSCULOSKELETAL/RHEUMATOLOGICAL Hx Falls: No (doesnt want to answer question) - GASTROINTESTINAL Hx Gastrointestinal Disorders: Yes Hx Colostomy: Yes - GENITOURINARY/GYNECOLOGICAL Hx Genitourinary Disorders: Yes (DX: RENAL FAILURE) - PSYCHIATRIC Hx Substance Use: No - SURGICAL HISTORY Hx Surgeries: Yes Hx Amputation: Yes (RBK) Hx Section: Yes Hx Eye Surgery: Yes (INSERT "GAS" BUBBLE BOTH EYES) Hx Tubal Ligation: Yes Hx Vascular Access Device: Yes (R SC HD cath) Other/Comment: I&D GROIN; 12/30/14 LAPAROSCOPIC INSERTION PERITONEAL DIALYSIS CATHETE over right chest. 01/14/15 REVISION DONE OF PERITIONEAL DIALYSIS CATH. 08/15/17 0230 - Patient refusing to give further information at this time - ANESTHESIA Hx Anesthesia: Yes Hx Anesthesia Reactions: No Hx Malignant Hyperthermia: No Meds Allergies/Adverse Reactions: Allergies Allergy/AdvReac Type Severity Reaction Status Date / Time shrimp Allergy Severe RASH Verified 08/14/17 19:34 - Medications Medications: Current Medications Acetaminophen (Tylenol 325mg Tab) 650 mg PO Q8H PRN PRN Reason: Pain, Mild (1-3) or Temp>100.4 Amlodipine Besylate (Norvasc) 2.5 mg PO DAILY [facility] Last Admin: 08/15/17 09:29 Dose: 2.5 mg Aspirin (Ecotrin) 81 mg PO DAILY [facility] Last Admin: 08/15/17 09:29 Dose: 81 mg Carvedilol (Coreg) 12.5 mg PO BID [facility] Last Admin: 08/15/17 19:23 Dose: 12.5 mg Clopidogrel Bisulfate (Plavix) 75 mg PO DAILY [facility] Last Admin: 08/15/17 09:34 Dose: 75 mg Famotidine (Pepcid) 20 mg PO DAILY [facility] Last Admin: 08/15/17 09:27 Dose: 20 mg Gabapentin (Neurontin) 100 mg PO Q12 [facility] Last Admin: 08/15/17 21:35 Dose: 100 mg Sodium Chloride (Sodium Chloride 0.9%) 1,000 mls @ 100 mls/hr IV .Q10H [facility] Last Admin: 08/15/17 17:31 Dose: Not Given Insulin Glargine (Lantus) 10 unit SC [facility] Last Admin: 08/15/17 21:40 Dose: 10 unit Insulin Human Regular (Novolin R) 0 unit SC [facility] PRN Reason: Protocol Last Admin: 08/15/17 21:33 Dose: Not Given Rosuvastatin Calcium (Crestor) 10 mg PO HS [facility] Last Admin: 08/15/17 21:35 Dose: 10 mg Vitamin B Complex/Vit C/Folic Acid (Nephro-Cony) 1 tab PO DAILY [facility] Last Admin: 08/15/17 10:30 Dose: 1 tab Results - Vital Signs Recent Vital Signs: Last Vital Signs Temp 97.8 F 08/15/17 14:30 Pulse 92 H 08/15/17 14:30 Resp 18 08/15/17 14:30 BP 137/79 08/15/17 19:23 Pulse Ox 97 08/15/17 07:05 - Labs Result Diagrams: 08/15/17 11:17 08/15/17 11:17 Labs: Laboratory Results - last 24 hr 08/15/17 08/15/17 08/15/17 11:17 11:17 11:31 WBC 6.9 RBC 3.58 L Hgb 11.7 Hct 35.9 MCV 100.2 H D MCH 32.6 H MCHC 32.5 L RDW 20.6 H Plt Count 187 MPV 9.6 Sodium 137 Potassium 6.5 H* D Chloride 102 Carbon Dioxide 20 L Anion Gap 22 H BUN 36 H Creatinine 8.4 H* D Est GFR ( Amer) 6 Est GFR (Non-Af Amer) 5 POC Glucose (mg/dL) 139 H Random Glucose 91 Calcium 9.0 08/15/17 19:20 WBC RBC Hgb Hct MCV MCH MCHC RDW Plt Count MPV Sodium Potassium Chloride Carbon Dioxide Anion Gap BUN Creatinine Est GFR ( Amer) Est GFR (Non-Af Amer) POC Glucose (mg/dL) 106 Random Glucose Calcium - Imaging and Cardiology CT scan - head Status: Image reviewed by me, Report reviewed by me (ct head and cta normal. ) Assessment & Plan - Assessment and Plan (Free Text) Assessment: 51 yr old woman with resolved weakness of her arms, who most likley has cervical pathology.no further stroke workup needed. plan: 1. MRI c spine. 2. pt will follow dr gabriel
[2017-08-16] MEDS: (Novolin R) Insulin Human Regular 100 units/ml vial SC SCH ×4 (07:40→21:52)
--- NOTE | 2017-08-16 07:42 | CP.PCM.PN ---
Subjective - Date & Time of Evaluation Date of Evaluation: 08/16/17 Time of Evaluation: 07:41 - Subjective Subjective: Ms. Tong was seen and examined at the bedside. She is alert, oriented. She is able to move upper extremities and claims that her strength is back to baseline. She refused telemonitoring and IV site. She request to increase pain medication. There was no untoward events overnight. Objective - Vital Signs/Intake and Output Vital Signs (last 24 hours): Temp Pulse Resp BP Pulse Ox 98.6 F 100 H 20 137/87 97 08/16/17 02:30 08/16/17 01:00 08/16/17 01:00 08/16/17 01:00 08/16/17 01:00 Intake and Output: 08/16/17 08/16/17 06:59 18:59 Intake Total 540 Balance 540 - Medications Medications: Current Medications Acetaminophen (Tylenol 325mg Tab) 650 mg PO Q8H PRN PRN Reason: Pain, Mild (1-3) or Temp>100.4 Last Admin: 08/16/17 02:30 Dose: 650 mg Amlodipine Besylate (Norvasc) 2.5 mg PO DAILY [facility] Last Admin: 08/15/17 09:29 Dose: 2.5 mg Aspirin (Ecotrin) 81 mg PO DAILY [facility] Last Admin: 08/15/17 09:29 Dose: 81 mg Carvedilol (Coreg) 12.5 mg PO BID [facility] Last Admin: 08/15/17 19:23 Dose: 12.5 mg Clopidogrel Bisulfate (Plavix) 75 mg PO DAILY [facility] Last Admin: 08/15/17 09:34 Dose: 75 mg Famotidine (Pepcid) 20 mg PO DAILY [facility] Last Admin: 08/15/17 09:27 Dose: 20 mg Gabapentin (Neurontin) 100 mg PO Q12 [facility] Last Admin: 08/15/17 21:35 Dose: 100 mg Sodium Chloride (Sodium Chloride 0.9%) 1,000 mls @ 100 mls/hr IV .Q10H [facility] Last Admin: 08/15/17 17:31 Dose: Not Given Insulin Glargine (Lantus) 10 unit SC HS [facility] Last Admin: 08/15/17 21:40 Dose: 10 unit Insulin Human Regular (Novolin R) 0 unit SC ACHS [facility] PRN Reason: Protocol Last Admin: 08/15/17 21:33 Dose: Not Given Rosuvastatin Calcium (Crestor) 10 mg PO HS [facility] Last Admin: 08/15/17 21:35 Dose: 10 mg Vitamin B Complex/Vit C/Folic Acid (Nephro-Coyn) 1 tab PO DAILY [facility] Last Admin: 08/15/17 10:30 Dose: 1 tab - Labs Labs: 08/15/17 11:17 08/15/17 11:17 PT 10.0 SECONDS (9.7-12.2) 08/14/17 21:08 INR 0.9 08/14/17 21:08 APTT 35 SECONDS (21-34) H 08/14/17 21:08 - Constitutional Appears: No Acute Distress - Head Exam Head Exam: NORMAL INSPECTION - Neurological Exam Neurological Exam: Alert, Awake Neuro motor strength exam: Left Upper Extremity: 5, Right Upper Extremity: 5, Left Lower Extremity: 2/1 (amputated), Right Lower Extremity: 2/1 (amputated) Additional comments: She is alert, oriented and able to follow commands. Assessment and Plan (1) Weakness of both upper extremities Assessment & Plan: Case discussed with Dr. Villa, recommend MRI of the cervical to evaluate any cervical pathology. Status: Acute
[2017-08-16] MEDS: Multivitamin Vitamin B Complex (Nephro-Vite) Tab PO SCH (09:04)
[2017-08-16] MEDS: Oxycodone/Acetaminophen 5/325 mg Tab PO PRN ×2 (12:59→21:48)
--- NOTE | 2017-08-16 13:43 | CP.PCM.PN ---
Subjective - Date & Time of Evaluation Date of Evaluation: 08/16/17 Time of Evaluation: 13:41 - Subjective Subjective: s/p second dialysis 08/15. pre K was 6.5 feels better now no SOB, CPs, n, v, fever, chills colostomy functioning OK Objective - Vital Signs/Intake and Output Vital Signs (last 24 hours): Temp Pulse Resp BP Pulse Ox 98.3 F 95 H 18 145/82 99 08/16/17 07:00 08/16/17 07:40 08/16/17 07:00 08/16/17 09:04 08/16/17 07:00 Intake and Output: 08/16/17 08/16/17 06:59 18:59 Intake Total 540 Balance 540 - Medications Medications: Current Medications Acetaminophen (Tylenol 325mg Tab) 650 mg PO Q8H PRN PRN Reason: Pain, Mild (1-3) or Temp>100.4 Last Admin: 08/16/17 02:30 Dose: 650 mg Amlodipine Besylate (Norvasc) 2.5 mg PO DAILY [facility] Last Admin: 08/16/17 09:04 Dose: 2.5 mg Aspirin (Ecotrin) 81 mg PO DAILY [facility] Last Admin: 08/16/17 09:04 Dose: 81 mg Carvedilol (Coreg) 12.5 mg PO BID [facility] Last Admin: 08/16/17 09:04 Dose: 12.5 mg Clopidogrel Bisulfate (Plavix) 75 mg PO DAILY [facility] Last Admin: 08/16/17 09:05 Dose: 75 mg Famotidine (Pepcid) 20 mg PO DAILY [facility] Last Admin: 08/16/17 09:04 Dose: 20 mg Gabapentin (Neurontin) 100 mg PO Q12 [facility] Last Admin: 08/16/17 09:04 Dose: 100 mg Insulin Glargine (Lantus) 10 unit SC HS [facility] Last Admin: 08/15/17 21:40 Dose: 10 unit Insulin Human Regular (Novolin R) 0 unit SC ACHS [facility] PRN Reason: Protocol Last Admin: 08/16/17 11:40 Dose: Not Given Oxycodone/Acetaminophen (Percocet 5/325 Mg Tab) 1 tab PO Q8 PRN PRN Reason: Pain, moderate (4-7) Stop: 08/19/17 14:01 Last Admin: 08/16/17 12:59 Dose: 1 tab Rosuvastatin Calcium (Crestor) 10 mg PO HS [facility] Last Admin: 08/15/17 21:35 Dose: 10 mg Vitamin B Complex/Vit C/Folic Acid (Nephro-Cony) 1 tab PO DAILY [facility] Last Admin: 08/16/17 09:04 Dose: 1 tab - Labs Labs: 08/15/17 11:17 08/15/17 11:17 PT 10.0 SECONDS (9.7-12.2) 08/14/17 21:08 INR 0.9 08/14/17 21:08 APTT 35 SECONDS (21-34) H 08/14/17 21:08 - Constitutional Appears: Non-toxic, No Acute Distress, Chronically Ill - Head Exam Head Exam: NORMAL INSPECTION, NORMOCEPHALIC - Eye Exam Eye Exam: EOMI, Normal appearance - Neck Exam Neck Exam: Normal Inspection. absent: Tenderness - Respiratory Exam Respiratory Exam: Clear to Ausculation Bilateral, NORMAL BREATHING PATTERN - Cardiovascular Exam Cardiovascular Exam: REGULAR RHYTHM, +S1 - GI/Abdominal Exam GI & Abdominal Exam: Soft. absent: Tenderness - Extremities Exam Extremities Exam: Normal Inspection. absent: Tenderness - Neurological Exam Neurological Exam: Awake, CN II-XII Intact - Skin Skin Exam: Dry, Warm Assessment and Plan (1) PVD (peripheral vascular disease) Status: Acute (2) ESRD needing dialysis Status: Acute (3) S/P BKA (below knee amputation) bilateral Status: Acute (4) Type 1 diabetes mellitus with diabetic nephropathy Status: Acute - Assessment and Plan (Free Text) Plan: dialysis tomorrow and TTS follow up chemistries monitor BP- stable now
--- NOTE | 2017-08-16 14:43 | CP.PCM.PN ---
Subjective - Date & Time of Evaluation Date of Evaluation: 08/16/17 Time of Evaluation: 14:41 - Subjective Subjective: Patient now feeling better. The abdominal wall wound reviewed, minimal discharge noted, culture was taken today. Patient had hemodialysis yesterday. No nausea vomiting. Eating better. Complaining of pain in the legs. On examination: Vital signs is stable. Chest good air entry. Regular heart sound. Abdomen nontender. Bilateral below-knee amputation. Patient is able to walk extremities with out any difficulty. Assessment and recommendation: 51-year-old female with history of diabetes, hypertension, high cholesterol, peripheral vascular disease, status post a below-knee amputation bilaterally secondary to day of the legs, patella dialysis in the past, now receiving hemodialysis. This time admitted with the severe metabolic encephalopathy secondary to acute renal insufficiency, patient failed to get the hemodialysis, with the severe hyperkalemic paralyzes. Patient improved markedly. There is no indication for cervical spine MRI at this time. Will continue the current treatment. She will be getting the hemolysis tomorrow. After the hemolysis possibly discharge. wound culture pending. Objective - Vital Signs/Intake and Output Vital Signs (last 24 hours): Temp Pulse Resp BP Pulse Ox 98.3 F 95 H 18 145/82 99 08/16/17 07:00 08/16/17 07:40 08/16/17 07:00 08/16/17 09:04 08/16/17 07:00 Intake and Output: 08/16/17 08/16/17 06:59 18:59 Intake Total 540 Balance 540 - Medications Medications: Current Medications Acetaminophen (Tylenol 325mg Tab) 650 mg PO Q8H PRN PRN Reason: Pain, Mild (1-3) or Temp>100.4 Last Admin: 08/16/17 02:30 Dose: 650 mg Amlodipine Besylate (Norvasc) 2.5 mg PO DAILY [facility] Last Admin: 08/16/17 09:04 Dose: 2.5 mg Aspirin (Ecotrin) 81 mg PO DAILY [facility] Last Admin: 08/16/17 09:04 Dose: 81 mg Carvedilol (Coreg) 12.5 mg PO BID [facility] Last Admin: 08/16/17 09:04 Dose: 12.5 mg Clopidogrel Bisulfate (Plavix) 75 mg PO DAILY [facility] Last Admin: 08/16/17 09:05 Dose: 75 mg Famotidine (Pepcid) 20 mg PO DAILY [facility] Last Admin: 08/16/17 09:04 Dose: 20 mg Gabapentin (Neurontin) 100 mg PO Q12 [facility] Last Admin: 08/16/17 09:04 Dose: 100 mg Insulin Glargine (Lantus) 10 unit SC HS [facility] Last Admin: 08/15/17 21:40 Dose: 10 unit Insulin Human Regular (Novolin R) 0 unit SC [facility] PRN Reason: Protocol Last Admin: 08/16/17 11:40 Dose: Not Given Oxycodone/Acetaminophen (Percocet 5/325 Mg Tab) 1 tab PO Q8 PRN PRN Reason: Pain, moderate (4-7) Stop: 08/19/17 14:01 Last Admin: 08/16/17 12:59 Dose: 1 tab Rosuvastatin Calcium (Crestor) 10 mg PO [facility] Last Admin: 08/15/17 21:35 Dose: 10 mg Vitamin B Complex/Vit C/Folic Acid (Nephro-Cony) 1 tab PO DAILY [facility] Last Admin: 08/16/17 09:04 Dose: 1 tab - Labs Labs: 08/15/17 11:17 08/15/17 11:17 PT 10.0 SECONDS (9.7-12.2) 08/14/17 21:08 INR 0.9 08/14/17 21:08 APTT 35 SECONDS (21-34) H 08/14/17 21:08
[2017-08-16] MEDS: (Lantus) Insulin Glargine, Recombinant SC SCH (21:47)
[2017-08-17] MEDS: (Novolin R) Insulin Human Regular 100 units/ml vial SC SCH ×5 (08:33→21:05)
--- NOTE | 2017-08-17 10:22 | CP.PCM.PN ---
Subjective - Date & Time of Evaluation Date of Evaluation: 08/17/17 Time of Evaluation: 10:19 - Subjective Subjective: for dialysis soon today BP elevated wound culture pending overall feels better; not SOB, no CPs, n, v, f, chills todays labs pending Objective - Vital Signs/Intake and Output Vital Signs (last 24 hours): Temp Pulse Resp BP Pulse Ox 97.5 F L 81 20 188/92 H 97 08/17/17 07:25 08/17/17 07:25 08/17/17 07:25 08/17/17 07:25 08/17/17 07:25 Intake and Output: 08/17/17 08/17/17 06:59 18:59 Intake Total 300 Output Total 1 Balance 299 - Medications Medications: Current Medications Acetaminophen (Tylenol 325mg Tab) 650 mg PO Q8H PRN PRN Reason: Pain, Mild (1-3) or Temp>100.4 Last Admin: 08/16/17 02:30 Dose: 650 mg Amlodipine Besylate (Norvasc) 2.5 mg PO DAILY [facility] Last Admin: 08/16/17 09:04 Dose: 2.5 mg Aspirin (Ecotrin) 81 mg PO DAILY [facility] Last Admin: 08/16/17 09:04 Dose: 81 mg Carvedilol (Coreg) 25 mg PO BID [facility] Clopidogrel Bisulfate (Plavix) 75 mg PO DAILY [facility] Last Admin: 08/16/17 09:05 Dose: 75 mg Famotidine (Pepcid) 20 mg PO DAILY [facility] Last Admin: 08/16/17 09:04 Dose: 20 mg Gabapentin (Neurontin) 100 mg PO Q12 [facility] Last Admin: 08/16/17 21:44 Dose: 100 mg Insulin Glargine (Lantus) 10 unit SC HS [facility] Last Admin: 08/16/17 21:47 Dose: 10 unit Insulin Human Regular (Novolin R) 0 unit SC [facility] PRN Reason: Protocol Last Admin: 08/17/17 08:35 Dose: Not Given Oxycodone/Acetaminophen (Percocet 5/325 Mg Tab) 1 tab PO Q8 PRN PRN Reason: Pain, moderate (4-7) Stop: 08/19/17 14:01 Last Admin: 08/16/17 21:48 Dose: 1 tab Rosuvastatin Calcium (Crestor) 10 mg PO HS [facility] Last Admin: 08/16/17 21:44 Dose: 10 mg Vitamin B Complex/Vit C/Folic Acid (Nephro-Cony) 1 tab PO DAILY [facility] Last Admin: 08/16/17 09:04 Dose: 1 tab - Labs Labs: 08/15/17 11:17 08/15/17 11:17 PT 10.0 SECONDS (9.7-12.2) 08/14/17 21:08 INR 0.9 08/14/17 21:08 APTT 35 SECONDS (21-34) H 08/14/17 21:08 - Constitutional Appears: No Acute Distress, Chronically Ill - Head Exam Head Exam: ATRAUMATIC, NORMAL INSPECTION - Eye Exam Eye Exam: EOMI, Normal appearance - Neck Exam Neck Exam: Normal Inspection. absent: Tenderness - Respiratory Exam Respiratory Exam: Clear to Ausculation Bilateral, NORMAL BREATHING PATTERN - Cardiovascular Exam Cardiovascular Exam: REGULAR RHYTHM, +S1 - GI/Abdominal Exam GI & Abdominal Exam: Soft. absent: Tenderness - Extremities Exam Extremities Exam: Joint Swelling, Tenderness - Neurological Exam Neurological Exam: Awake, CN II-XII Intact - Skin Skin Exam: Dry, Warm Assessment and Plan (1) PVD (peripheral vascular disease) Status: Acute (2) ESRD needing dialysis Status: Acute (3) S/P BKA (below knee amputation) bilateral Status: Acute (4) Type 1 diabetes mellitus with diabetic nephropathy Status: Acute - Assessment and Plan (Free Text) Plan: dialysis now and TTS Adequate fluid removal with HD increase carvedilol dose await wound culture results
[2017-08-17] MEDS: Multivitamin Vitamin B Complex (Nephro-Vite) Tab PO SCH (10:58)
[2017-08-17] MEDS: Oxycodone/Acetaminophen 5/325 mg Tab PO PRN ×2 (13:11→21:04)
[2017-08-17 14:18] LABS: ALB/GLOB RATIO 1.1 (1.0-2.1); ALBUMIN 3.9 g/dL (3.5-5.0); CALCIUM 9.4 mg/dl (8.6-10.4)
[2017-08-17] MEDS ORDERED: Sod Polystyrene Sulf 15 gm/60 ml Susp PO SCH (16:45)
[2017-08-17] MEDS: Bacitracin Ointment 30 GM TUBE TOP SCH (18:06)
--- NOTE | 2017-08-17 19:08 | CP.PCM.PN ---
Subjective - Date & Time of Evaluation Date of Evaluation: 08/17/17 Time of Evaluation: 19:04 - Subjective Subjective: pt is c/o pain 01/10 and wants to have dilaudid 0.5mg and called her brother also and who called me about the pain. I explained to her brother and herself about the side effects and complications she has. They under stand the problems and I ordered 0.5mg dilaudid iv I also add antibiotic for the GNB in the wound ID consult will f/u to day she got HD and I saw the pt during HD and she was comfortable no distress. Objective - Vital Signs/Intake and Output Vital Signs (last 24 hours): Temp Pulse Resp BP Pulse Ox 98.6 F 83 16 96/60 L 100 08/17/17 18:14 08/17/17 17:00 08/17/17 18:14 08/17/17 18:22 08/17/17 18:14 Intake and Output: 08/17/17 08/18/17 18:59 06:59 Intake Total 410 Balance 410 - Medications Medications: Current Medications Amlodipine Besylate (Norvasc) 2.5 mg PO DAILY [facility] Last Admin: 08/17/17 10:57 Dose: Not Given Aspirin (Ecotrin) 81 mg PO DAILY [facility] Last Admin: 08/17/17 10:58 Dose: 81 mg Bacitracin (Bacitracin) 1 gm TOP DAILY [facility] Last Admin: 08/17/17 18:06 Dose: Not Given Carvedilol (Coreg) 25 mg PO BID [facility] Last Admin: 08/17/17 18:22 Dose: Not Given Clopidogrel Bisulfate (Plavix) 75 mg PO DAILY [facility] Last Admin: 08/17/17 10:58 Dose: 75 mg Famotidine (Pepcid) 20 mg PO DAILY [facility] Last Admin: 08/17/17 10:58 Dose: 20 mg Gabapentin (Neurontin) 100 mg PO Q12 [facility] Last Admin: 08/17/17 10:58 Dose: 100 mg Hydromorphone HCl (Dilaudid) 0.5 mg IVP STAT STA Stop: 08/17/17 19:02 Insulin Glargine (Lantus) 10 unit SC HS [facility] Last Admin: 08/16/17 21:47 Dose: 10 unit Insulin Human Regular (Novolin R) 0 unit SC ACHS [facility] PRN Reason: Protocol Last Admin: 08/17/17 18:07 Dose: Not Given Oxycodone/Acetaminophen (Percocet 5/325 Mg Tab) 1 tab PO Q8 PRN PRN Reason: Pain, moderate (4-7) Stop: 08/19/17 14:01 Last Admin: 08/17/17 13:11 Dose: 1 tab Rosuvastatin Calcium (Crestor) 10 mg PO HS [facility] Last Admin: 08/16/17 21:44 Dose: 10 mg Vitamin B Complex/Vit C/Folic Acid (Nephro-Cony) 1 tab PO DAILY [facility] Last Admin: 08/17/17 10:58 Dose: 1 tab - Labs Labs: 08/15/17 11:17 08/17/17 13:54 PT 10.0 SECONDS (9.7-12.2) 08/14/17 21:08 INR 0.9 08/14/17 21:08 APTT 35 SECONDS (21-34) H 08/14/17 21:08
[2017-08-17] MEDS: HYDROmorphone 0.5 mg/0.5 ml ISec IVP STA ×2 (19:12→19:35)
[2017-08-17] MEDS: (Lantus) Insulin Glargine, Recombinant SC SCH (21:05)
[2017-08-17] MEDS: Imipenem/Cilastatin 250 MG in Sodium Chloride 100 ML IVPB SCH (21:07)
[2017-08-18] MEDS: Imipenem/Cilastatin 250 MG in Sodium Chloride 100 ML IVPB SCH ×3 (05:19→21:02)
[2017-08-18] MEDS: Oxycodone/Acetaminophen 5/325 mg Tab PO PRN ×2 (06:42→20:42)
[2017-08-18] MEDS: (Novolin R) Insulin Human Regular 100 units/ml vial SC SCH ×3 (08:42→21:01)
[2017-08-18] MEDS: Bacitracin Ointment 30 GM TUBE TOP SCH (10:00)
[2017-08-18] MEDS: Multivitamin Vitamin B Complex (Nephro-Vite) Tab PO SCH (10:00)
[2017-08-18 14:31] LABS: HEMOGLOBIN 11.2 g/dL (11.0-16.0); MEAN CELL VOLUME 99.6 fL (81.0-99.0); MEAN CORPUSCULAR HEMOGLOBIN 32.4 pg (27.0-31.0); MEAN CORPUSCULAR HGB CONC 32.5 g/dL (33.0-37.0); MEAN PLATELET VOLUME 9.6 fL (7.2-11.7); RBC 3.46 Mil/uL (3.80-5.20); WHITE BLOOD COUNT 7.7 K/uL (4.8-10.8)
[2017-08-18 14:33] LABS: CALCIUM 9.3 mg/dl (8.6-10.4)
--- NOTE | 2017-08-18 17:31 | CP.PCM.CON ---
History of Present Illness - History of Present Illness History of Present Illness: SURGERY CONSULT FOR DR. SANTIAGO 51F with extension medical history. Surgery consulted for peritoneal dialysis catheter. PSH: ESRD, DIABETIC NEPHROPATHY, PVD, HTN, DM 1 PSH: PD CATH PLACEMENT AND REMOVAL, COLOSTOMY, BILATERAL BKA Past Patient History - Infectious Disease Hx of Infectious Diseases: None - Past Medical History & Family History Past Medical History?: Yes - Past Social History Smoking Status: Former Smoker Chewing Tobacco Use: No Cigar Use: No Alcohol: None Drugs: Denies Home Situation {Lives}: Detention - CARDIAC Hx Congestive Heart Failure: Yes Hx Hypercholesterolemia: Yes Hx Hypertension: Yes - PULMONARY Hx Bronchitis: Yes Hx Pneumonia: No - NEUROLOGICAL Hx Neurological Disorder: No - HEENT Hx HEENT Problems: No - RENAL Hx Chronic Kidney Disease: Yes - ENDOCRINE/METABOLIC Hx Diabetes Mellitus Type 2: Yes - HEMATOLOGICAL/ONCOLOGICAL Hx Anemia: Yes - INTEGUMENTARY Hx Dermatological Problems: Yes Hx Eczema: Yes - MUSCULOSKELETAL/RHEUMATOLOGICAL Hx Falls: No (doesnt want to answer question) - GASTROINTESTINAL Hx Gastrointestinal Disorders: Yes Hx Colostomy: Yes - GENITOURINARY/GYNECOLOGICAL Hx Genitourinary Disorders: Yes (DX: RENAL FAILURE) - PSYCHIATRIC Hx Substance Use: No - SURGICAL HISTORY Hx Surgeries: Yes Hx Amputation: Yes (RBK) Hx Section: Yes Hx Eye Surgery: Yes (INSERT "GAS" BUBBLE BOTH EYES) Hx Tubal Ligation: Yes Hx Vascular Access Device: Yes (R SC HD cath) Other/Comment: I&D GROIN; 12/30/14 LAPAROSCOPIC INSERTION PERITONEAL DIALYSIS CATHETE over right chest. 01/14/15 REVISION DONE OF PERITIONEAL DIALYSIS CATH. 08/15/17 0230 - Patient refusing to give further information at this time - ANESTHESIA Hx Anesthesia: Yes Hx Anesthesia Reactions: No Hx Malignant Hyperthermia: No Meds Allergies/Adverse Reactions: Allergies Allergy/AdvReac Type Severity Reaction Status Date / Time shrimp Allergy Severe RASH Verified 08/14/17 19:34 - Medications Medications: Current Medications Amlodipine Besylate (Norvasc) 2.5 mg PO DAILY [facility] Last Admin: 08/18/17 10:00 Dose: 2.5 mg Aspirin (Ecotrin) 81 mg PO DAILY [facility] Last Admin: 08/18/17 09:59 Dose: 81 mg Bacitracin (Bacitracin) 1 gm TOP DAILY [facility] Last Admin: 08/18/17 10:00 Dose: 1 appl Carvedilol (Coreg) 25 mg PO BID [facility] Last Admin: 08/18/17 10:00 Dose: 25 mg Clopidogrel Bisulfate (Plavix) 75 mg PO DAILY [facility] Last Admin: 08/18/17 09:59 Dose: 75 mg Famotidine (Pepcid) 20 mg PO DAILY [facility] Last Admin: 08/18/17 09:59 Dose: 20 mg Gabapentin (Neurontin) 100 mg PO Q12 [facility] Last Admin: 08/18/17 09:59 Dose: 100 mg Imipenem/Cilastatin Sodium 250 (mg/ Sodium Chloride) 100 mls @ 100 mls/hr IVPB Q8 [facility] PRN Reason: Protocol Stop: 08/20/17 22:01 Last Admin: 08/18/17 14:35 Dose: Not Given Insulin Glargine (Lantus) 10 unit SC [facility] Last Admin: 08/17/17 21:05 Dose: 10 unit Insulin Human Regular (Novolin R) 0 unit SC [facility] PRN Reason: Protocol Last Admin: 08/18/17 08:42 Dose: 2 unit Oxycodone/Acetaminophen (Percocet 5/325 Mg Tab) 1 tab PO Q8 PRN PRN Reason: Pain, moderate (4-7) Stop: 08/19/17 14:01 Last Admin: 08/18/17 06:42 Dose: 1 tab Rosuvastatin Calcium (Crestor) 10 mg PO [facility] Last Admin: 08/17/17 21:04 Dose: 10 mg Vitamin B Complex/Vit C/Folic Acid (Nephro-Cony) 1 tab PO DAILY [facility] Last Admin: 08/18/17 10:00 Dose: 1 tab Results - Vital Signs Recent Vital Signs: Last Vital Signs Temp 98.1 F 08/18/17 16:56 Pulse 86 08/18/17 16:56 Resp 20 08/18/17 16:56 BP 110/62 08/18/17 16:56 Pulse Ox 100 08/18/17 16:56 - Labs Result Diagrams: 08/18/17 14:01 08/18/17 14:01 Labs: Laboratory Results - last 24 hr 08/17/17 08/18/17 08/18/17 21:33 06:03 11:20 WBC RBC Hgb Hct MCV MCH MCHC RDW Plt Count MPV Sodium Potassium Chloride Carbon Dioxide Anion Gap BUN Creatinine Est GFR ( Amer) Est GFR (Non-Af Amer) POC Glucose (mg/dL) 384 H 224 H 176 H Random Glucose Calcium 08/18/17 08/18/17 08/18/17 14:01 14:01 17:04 WBC 7.7 RBC 3.46 L Hgb 11.2 Hct 34.4 MCV 99.6 H MCH 32.4 H MCHC 32.5 L RDW 19.0 H Plt Count 189 MPV 9.6 Sodium 135 Potassium 5.5 H Chloride 98 Carbon Dioxide 22 Anion Gap 21 H BUN 41 H Creatinine 6.4 H Est GFR ( Amer) 8 Est GFR (Non-Af Amer) 7 POC Glucose (mg/dL) 240 H Random Glucose 165 H Calcium 9.3 Assessment & Plan - Assessment and Plan (Free Text) Assessment: 51F with retained portion of dialysis catheter Plan: Plan for removal 08/19 Pre/op patient, NPO after midnight Discussed with Dr. Eduardo Lopez, PGY2
--- NOTE | 2017-08-18 20:13 | CP.PCM.CON ---
History of Present Illness - History of Present Illness History of Present Illness: INFECTIOUS DISEASE CONSULT; HPI;51-year-old female with multiple medical problems who was admitted 08/14/17 with weakness and numbness in her upper arms. Patient was found to be hyperkalemic and dialysis was started due to hyperkalemia on an emergency basis as potassium was 10.4 and patient partially paralyzed. Patient apparently missed her hemodialysis and got worse. Patient presently on hemodialysis TTS. Patient was also empirically started on IV Primaxin 250 mg every 8 hourly for possible PEG site wound and drainage. Infectious disease consultation today requested by PMD as cultures came back from the wound PD site as multidrug-resistant Klebsiella pneumoniae S-only to amikacin. Patient also has history of bilateral BKA and is wheelchair-bound. Patient also has a colostomy and a right internal jugular hemodialysis catheter now. ALLERGY; SHRIMP. PSH: ESRD ON PD,NOW ON HD TTS DIABETIC NEPHROPATHY PVD HTN DM 1 PSH: PD CATH PLACEMENT AND REMOVAL COLOSTOMY BILATERAL BKA Review of Systems - Constitutional Constitutional: absent: Chills, Fever - Cardiovascular Cardiovascular: absent: Chest Pain, Edema - Respiratory Respiratory: absent: Cough - Gastrointestinal Gastrointestinal: Constipation (COLOSTOMY+VE). absent: Abdominal Pain, Nausea, Vomiting - Neurological Neurological: Abnormal Gait (B/L BKA.) - Hematologic/Lymphatic Hematologic: As Per HPI. absent: Easy Bleeding, Lymphadenopathy Past Patient History - Infectious Disease Hx of Infectious Diseases: None - Past Medical History & Family History Past Medical History?: Yes - Past Social History Smoking Status: Former Smoker Chewing Tobacco Use: No Cigar Use: No Alcohol: None Drugs: Denies Home Situation {Lives}: Skilled Nursing - CARDIAC Hx Congestive Heart Failure: Yes Hx Hypercholesterolemia: Yes Hx Hypertension: Yes - PULMONARY Hx Bronchitis: Yes Hx Pneumonia: No - NEUROLOGICAL Hx Neurological Disorder: No - HEENT Hx HEENT Problems: No - RENAL Hx Chronic Kidney Disease: Yes - ENDOCRINE/METABOLIC Hx Diabetes Mellitus Type 2: Yes - HEMATOLOGICAL/ONCOLOGICAL Hx Anemia: Yes - INTEGUMENTARY Hx Dermatological Problems: Yes Hx Eczema: Yes - MUSCULOSKELETAL/RHEUMATOLOGICAL Hx Falls: No (doesnt want to answer question) - GASTROINTESTINAL Hx Gastrointestinal Disorders: Yes Hx Colostomy: Yes - GENITOURINARY/GYNECOLOGICAL Hx Genitourinary Disorders: Yes (DX: RENAL FAILURE) - PSYCHIATRIC Hx Substance Use: No - SURGICAL HISTORY Hx Surgeries: Yes Hx Amputation: Yes (RBK) Hx Section: Yes Hx Eye Surgery: Yes (INSERT "GAS" BUBBLE BOTH EYES) Hx Tubal Ligation: Yes Hx Vascular Access Device: Yes (R SC HD cath) Other/Comment: I&D GROIN; 12/30/14 LAPAROSCOPIC INSERTION PERITONEAL DIALYSIS CATHETE over right chest. 01/14/15 REVISION DONE OF PERITIONEAL DIALYSIS CATH. 08/15/17 0230 - Patient refusing to give further information at this time - ANESTHESIA Hx Anesthesia: Yes Hx Anesthesia Reactions: No Hx Malignant Hyperthermia: No Meds Allergies/Adverse Reactions: Allergies Allergy/AdvReac Type Severity Reaction Status Date / Time shrimp Allergy Severe RASH Verified 08/14/17 19:34 - Medications Medications: Current Medications Amlodipine Besylate (Norvasc) 2.5 mg PO DAILY [facility] Last Admin: 08/18/17 10:00 Dose: 2.5 mg Aspirin (Ecotrin) 81 mg PO DAILY [facility] Last Admin: 08/18/17 09:59 Dose: 81 mg Bacitracin (Bacitracin) 1 gm TOP DAILY [facility] Last Admin: 08/18/17 10:00 Dose: 1 appl Carvedilol (Coreg) 25 mg PO BID [facility] Last Admin: 08/18/17 17:33 Dose: Not Given Clopidogrel Bisulfate (Plavix) 75 mg PO DAILY [facility] Last Admin: 08/18/17 09:59 Dose: 75 mg Famotidine (Pepcid) 20 mg PO DAILY [facility] Last Admin: 08/18/17 09:59 Dose: 20 mg Gabapentin (Neurontin) 100 mg PO Q12 [facility] Last Admin: 08/18/17 09:59 Dose: 100 mg Imipenem/Cilastatin Sodium 250 (mg/ Sodium Chloride) 100 mls @ 100 mls/hr IVPB Q8 [facility] PRN Reason: Protocol Stop: 08/20/17 22:01 Last Admin: 08/18/17 14:35 Dose: Not Given Insulin Glargine (Lantus) 10 unit SC HS [facility] Last Admin: 08/17/17 21:05 Dose: 10 unit Insulin Human Regular (Novolin R) 0 unit SC ACHS [facility] PRN Reason: Protocol Last Admin: 08/18/17 17:34 Dose: Not Given Oxycodone/Acetaminophen (Percocet 5/325 Mg Tab) 1 tab PO Q8 PRN PRN Reason: Pain, moderate (4-7) Stop: 08/19/17 14:01 Last Admin: 08/18/17 06:42 Dose: 1 tab Rosuvastatin Calcium (Crestor) 10 mg PO HS [facility] Last Admin: 08/17/17 21:04 Dose: 10 mg Vitamin B Complex/Vit C/Folic Acid (Nephro-Cony) 1 tab PO DAILY [facility] Last Admin: 08/18/17 10:00 Dose: 1 tab Physical Exam - Constitutional Appears: No Acute Distress - Head Exam Head Exam: NORMAL INSPECTION - Eye Exam Eye Exam: EOMI, PERRL - ENT Exam ENT Exam: Normal Oropharynx - Neck Exam Neck exam: Positive for: Normal Inspection - Respiratory Exam Respiratory Exam: Clear to Auscultation Bilateral - Cardiovascular Exam Cardiovascular Exam: REGULAR RHYTHM, +S1, +S2 - GI/Abdominal Exam GI & Abdominal Exam: Normal Bowel Sounds, Soft. absent: Tenderness (COLOSTOMY IN PLACE. PD CATHETHER SITE DRAINAGE/SUPERFICIAL ULCER WITH BLOOD TINGED SECRETIONS.) - Extremities Exam Extremities exam: Negative for: pedal pulses present (B/L BKA.) - Neurological Exam Neurological exam: Alert, CN II-XII Intact, Motor Sensory Deficit, Oriented x3 - Skin Skin Exam: Dry, Normal Color, Warm Results - Vital Signs Recent Vital Signs: Last Vital Signs Temp 98.1 F 08/18/17 16:56 Pulse 86 08/18/17 16:56 Resp 20 08/18/17 16:56 BP 110/62 08/18/17 17:33 Pulse Ox 100 08/18/17 16:56 - Labs Result Diagrams: 08/18/17 14:01 08/18/17 14:01 Labs: Laboratory Results - last 24 hr 08/17/17 08/18/17 08/18/17 21:33 06:03 11:20 WBC RBC Hgb Hct MCV MCH MCHC RDW Plt Count MPV Sodium Potassium Chloride Carbon Dioxide Anion Gap BUN Creatinine Est GFR ( Amer) Est GFR (Non-Af Amer) POC Glucose (mg/dL) 384 H 224 H 176 H Random Glucose Calcium 08/18/17 08/18/17 08/18/17 14:01 14:01 17:04 WBC 7.7 RBC 3.46 L Hgb 11.2 Hct 34.4 MCV 99.6 H MCH 32.4 H MCHC 32.5 L RDW 19.0 H Plt Count 189 MPV 9.6 Sodium 135 Potassium 5.5 H Chloride 98 Carbon Dioxide 22 Anion Gap 21 H BUN 41 H Creatinine 6.4 H Est GFR ( Amer) 8 Est GFR (Non-Af Amer) 7 POC Glucose (mg/dL) 240 H Random Glucose 165 H Calcium 9.3 Assessment & Plan (1) Peritoneal dialysis catheter exit site infection Status: Acute (2) Weakness of both upper extremities Status: Acute (3) PVD (peripheral vascular disease) Status: Acute (4) S/P BKA (below knee amputation) bilateral Status: Acute (5) End-stage renal disease on hemodialysis Status: Acute (6) Type 2 diabetes mellitus with diabetic nephropathy Status: Acute - Assessment and Plan (Free Text) Plan: PLAN; BLOOD CULTURE X 2 STAT WOUND CULTURE REPORTED MDR KLEIBSIELLA- S TO AMIKACIN. PATIENT TO GET 1 DOSE OF AMIKACIN 450 MG ONE DOSE TODAY.08/18/17 CONTINUE iv pRIMAXIN 250 MG iv PIGGYBACK EVERY 8 HOURLY FOR NOW. MICRO-TO CHECK FOR SENSITIVITIES OF COLISTIN, AVYCAZ.WITH MULTIDRUG-RESISTANT kLEBSIELLA PNEUMONIAE. wILL ADJUST ANTIBIOTICS ONCE ALL RESULTS ARE AVAILABLE. STRICT CONTACT ISOLATION. ADDENDUM; RN INFORMED, PATIENT HAS NO iv ACCESS. wILL DISCUSS WITH ATTENDING REGARDING ACCESS FOR iv ANTIBIOTICS ALSO PATIENT TO GO TO OR, PER VASCULAR SURGERY FOR DEBRIDEMENT OF PD- CATHETER EXIT SITE.
--- NOTE | 2017-08-18 20:45 | CP.PCM.PN ---
Subjective - Date & Time of Evaluation Date of Evaluation: 08/18/17 Time of Evaluation: 20:45 - Subjective Subjective: Patient still continues to have pain. Abdominal wound culture reviewed. Gram-negative bacteria noted. Patient will be seen by surgery. Possible removal of the peritoneal dialysis catheter. On examination: Chest good air entry. Regular heart sounds. Abdomen colostomy noted, draining Bilateral below-knee amputation. Assessment: 51-year-old female, end-stage renal disease on dialysis. Patient has a hemodialysis catheter. Patient has a colostomy. Bilateral below-knee amputation secondary to peripheral vascular disease. Plan Patient has a gram-negative bacteria in the abdominal wall cellulitis, suggested ID evaluation. Surgical evaluation. For hemodialysis. Patient continues to have hyperkalemia, diet, advised Objective - Vital Signs/Intake and Output Vital Signs (last 24 hours): Temp Pulse Resp BP Pulse Ox 98.1 F 86 20 110/62 100 08/18/17 16:56 08/18/17 16:56 08/18/17 16:56 08/18/17 17:33 08/18/17 16:56 - Medications Medications: Current Medications Amlodipine Besylate (Norvasc) 2.5 mg PO DAILY [facility] Last Admin: 08/18/17 10:00 Dose: 2.5 mg Aspirin (Ecotrin) 81 mg PO DAILY [facility] Last Admin: 08/18/17 09:59 Dose: 81 mg Bacitracin (Bacitracin) 1 gm TOP DAILY [facility] Last Admin: 08/18/17 10:00 Dose: 1 appl Carvedilol (Coreg) 25 mg PO BID [facility] Last Admin: 08/18/17 17:33 Dose: Not Given Clopidogrel Bisulfate (Plavix) 75 mg PO DAILY [facility] Last Admin: 08/18/17 09:59 Dose: 75 mg Famotidine (Pepcid) 20 mg PO DAILY [facility] Last Admin: 08/18/17 09:59 Dose: 20 mg Gabapentin (Neurontin) 100 mg PO Q12 [facility] Last Admin: 08/18/17 09:59 Dose: 100 mg Imipenem/Cilastatin Sodium 250 (mg/ Sodium Chloride) 100 mls @ 100 mls/hr IVPB Q8 [facility] PRN Reason: Protocol Stop: 08/20/17 22:01 Last Admin: 08/18/17 14:35 Dose: Not Given Insulin Glargine (Lantus) 10 unit SC HS [facility] Last Admin: 08/17/17 21:05 Dose: 10 unit Insulin Human Regular (Novolin R) 0 unit SC ACHS [facility] PRN Reason: Protocol Last Admin: 08/18/17 17:34 Dose: Not Given Oxycodone/Acetaminophen (Percocet 5/325 Mg Tab) 1 tab PO Q8 PRN PRN Reason: Pain, moderate (4-7) Stop: 08/19/17 14:01 Last Admin: 08/18/17 20:42 Dose: 1 tab Rosuvastatin Calcium (Crestor) 10 mg PO HS [facility] Last Admin: 08/17/17 21:04 Dose: 10 mg Vitamin B Complex/Vit C/Folic Acid (Nephro-Cony) 1 tab PO DAILY [facility] Last Admin: 08/18/17 10:00 Dose: 1 tab - Labs Labs: 08/18/17 14:01 08/18/17 14:01 PT 10.0 SECONDS (9.7-12.2) 08/14/17 21:08 INR 0.9 08/14/17 21:08 APTT 35 SECONDS (21-34) H 08/14/17 21:08
[2017-08-18] MEDS: (Lantus) Insulin Glargine, Recombinant SC SCH (21:00)
[2017-08-19] MEDS: Imipenem/Cilastatin 250 MG in Sodium Chloride 100 ML IVPB SCH ×2 (05:51→22:13)
--- NOTE | 2017-08-19 07:29 | CP.PCM.PN ---
Subjective - Date & Time of Evaluation Date of Evaluation: 08/19/17 Time of Evaluation: 07:29 - Subjective Subjective: Ms. Tong was seen and examined at the bedside. She is alert, oriented. She is able to move upper extremities and claims that her strength is back to baseline. She request to increase pain medication. There was no untoward events overnight. Objective - Vital Signs/Intake and Output Vital Signs (last 24 hours): Temp Pulse Resp BP Pulse Ox 97.3 F L 93 H 20 153/57 H 99 08/18/17 23:35 08/18/17 23:35 08/18/17 23:35 08/18/17 23:35 08/18/17 23:35 Intake and Output: 08/19/17 08/19/17 06:59 18:59 Intake Total 240 Balance 240 - Medications Medications: Current Medications Amlodipine Besylate (Norvasc) 2.5 mg PO DAILY [facility] Last Admin: 08/18/17 10:00 Dose: 2.5 mg Aspirin (Ecotrin) 81 mg PO DAILY [facility] Last Admin: 08/18/17 09:59 Dose: 81 mg Bacitracin (Bacitracin) 1 gm TOP DAILY [facility] Last Admin: 08/18/17 10:00 Dose: 1 appl Carvedilol (Coreg) 25 mg PO BID [facility] Last Admin: 08/18/17 17:33 Dose: Not Given Clopidogrel Bisulfate (Plavix) 75 mg PO DAILY [facility] Last Admin: 08/18/17 09:59 Dose: 75 mg Famotidine (Pepcid) 20 mg PO DAILY [facility] Last Admin: 08/18/17 09:59 Dose: 20 mg Gabapentin (Neurontin) 100 mg PO Q12 [facility] Last Admin: 08/18/17 21:00 Dose: 100 mg Imipenem/Cilastatin Sodium 250 (mg/ Sodium Chloride) 100 mls @ 100 mls/hr IVPB Q8 [facility] PRN Reason: Protocol Stop: 08/20/17 22:01 Last Admin: 08/19/17 05:51 Dose: Not Given Insulin Glargine (Lantus) 10 unit SC HS [facility] Last Admin: 08/18/17 21:00 Dose: 10 unit Insulin Human Regular (Novolin R) 0 unit SC ACHS [facility] PRN Reason: Protocol Last Admin: 08/18/17 21:01 Dose: Not Given Oxycodone/Acetaminophen (Percocet 5/325 Mg Tab) 1 tab PO Q8 PRN PRN Reason: Pain, moderate (4-7) Stop: 08/19/17 14:01 Last Admin: 08/18/17 20:42 Dose: 1 tab Rosuvastatin Calcium (Crestor) 10 mg PO HS [facility] Last Admin: 08/18/17 21:00 Dose: 10 mg Vitamin B Complex/Vit C/Folic Acid (Nephro-Cony) 1 tab PO DAILY [facility] Last Admin: 08/18/17 10:00 Dose: 1 tab - Labs Labs: 08/18/17 14:01 08/18/17 14:01 PT 10.0 SECONDS (9.7-12.2) 08/14/17 21:08 INR 0.9 08/14/17 21:08 APTT 35 SECONDS (21-34) H 08/14/17 21:08 - Constitutional Appears: No Acute Distress - Head Exam Head Exam: NORMAL INSPECTION - Neurological Exam Neurological Exam: Alert, Awake, Oriented x3 Neuro motor strength exam: Left Upper Extremity: 5, Right Upper Extremity: 5 Additional comments: Neurological unchanged from previous examination. Assessment and Plan (1) Weakness of both upper extremities Assessment & Plan: Case discussed with Dr. Villa, continue all current medical regimen. Since patient is back to her baseline and refused cervical MRI, Neurology is signing off from this case. Please re-consult as needed. Status: Acute
[2017-08-19] MEDS: (Novolin R) Insulin Human Regular 100 units/ml vial SC SCH ×3 (07:30→22:15)
[2017-08-19 07:51] LABS: BASO # 0.1 K/uL (0.0-0.2); BASO % 1.1 % (0.0-2.0); EOS # 0.3 K/uL (0.0-0.7); EOS % 3.2 % (0.0-4.0); HEMOGLOBIN 11.1 g/dL (11.0-16.0); LYMPH # 2.9 K/uL (1.0-4.3); LYMPH % 36.7 % (20.0-40.0); MEAN CELL VOLUME 99.4 fL (81.0-99.0); MEAN CORPUSCULAR HEMOGLOBIN 32.6 pg (27.0-31.0); MEAN CORPUSCULAR HGB CONC 32.8 g/dL (33.0-37.0); MEAN PLATELET VOLUME 9.3 fL (7.2-11.7); MONO # 0.7 K/uL (0.0-0.8); RBC 3.42 Mil/uL (3.80-5.20); RED CELL DISTRIBUTION WIDTH 19.3 % (11.5-14.5)
[2017-08-19 07:52] LABS: INR 0.9; PROTHROMBIN TIME 9.6 SECONDS (9.7-12.2)
[2017-08-19 08:36] LABS: ALBUMIN 3.9 g/dL (3.5-5.0); CALCIUM 9.7 mg/dl (8.6-10.4)
[2017-08-19] MEDS ORDERED: Propofol 10 mg/ml Inj (20 ML) ONE (11:06)
[2017-08-19] MEDS ORDERED: Midazolam 2 MG/2 ML VIAL ONE (11:06)
[2017-08-19] MEDS ORDERED: Lidocaine Hydrochloride 5 ML INJ ONE (11:07)
[2017-08-19] MEDS ORDERED: Bacitracin Ointment 30 GM TUBE ONE (11:46)
--- NOTE | 2017-08-19 11:59 | PCM.SURG1 ---
Surgeon's Initial Post Op Note - Surgeon's Notes Surgeon: Dr. Clark Title Agent: Bella PGY1 Type of Anesthesia: General LMA Pre-Operative Diagnosis: Retained Peritoneal Dialysis Catheter Operative Findings: see operative report Post-Operative Diagnosis: same Operation Performed: Removal of Retained Peritoneal Dialysis Catheter Specimen/Specimens Removed: 2 peices of the retained peritoneal dialysis catheter Estimated Blood Loss: EBL {In ML}: 5 Blood Products Given: N/A Drains Used: No Drains Post-Op Condition: Good Date of Surgery/Procedure: 08/19/17 Time of Surgery/Procedure: 11:59
[2017-08-19] MEDS ORDERED: HYDROmorphone 0.5 mg/0.5 ml ISec IVP PRN (12:08)
[2017-08-19] MEDS ORDERED: Oxycodone/Acetaminophen 5/325 mg Tab PO PRN (12:20)
--- NOTE | 2017-08-19 12:23 | CP.PCM.PN ---
Subjective - Date & Time of Evaluation Date of Evaluation: 08/19/17 Time of Evaluation: 12:20 - Subjective Subjective: seen post-op - removal of PD cath remnants awake, sluggish post-op last dialysis 08/17- went well BP better controlled hyperkalemia still problematic- advised pt on diet Objective - Vital Signs/Intake and Output Vital Signs (last 24 hours): Temp Pulse Resp BP Pulse Ox 97.4 F L 97 H 20 153/86 H 97 08/19/17 07:00 08/19/17 07:00 08/19/17 07:00 08/19/17 07:00 08/19/17 07:00 Intake and Output: 08/19/17 08/19/17 06:59 18:59 Intake Total 240 350 Balance 240 350 - Medications Medications: Current Medications Amlodipine Besylate (Norvasc) 2.5 mg PO DAILY [facility] Last Admin: 08/18/17 10:00 Dose: 2.5 mg Aspirin (Ecotrin) 81 mg PO DAILY [facility] Last Admin: 08/18/17 09:59 Dose: 81 mg Bacitracin (Bacitracin) 1 gm TOP DAILY [facility] Last Admin: 08/18/17 10:00 Dose: 1 appl Carvedilol (Coreg) 25 mg PO BID [facility] Last Admin: 08/18/17 17:33 Dose: Not Given Clopidogrel Bisulfate (Plavix) 75 mg PO DAILY [facility] Last Admin: 08/18/17 09:59 Dose: 75 mg Famotidine (Pepcid) 20 mg PO DAILY [facility] Last Admin: 08/18/17 09:59 Dose: 20 mg Gabapentin (Neurontin) 100 mg PO Q12 [facility] Last Admin: 08/18/17 21:00 Dose: 100 mg Hydromorphone HCl (Dilaudid) 0.5 mg IVP Q10M PRN PRN Reason: Pain, moderate (4-7) Stop: 08/19/17 14:09 Imipenem/Cilastatin Sodium 250 (mg/ Sodium Chloride) 100 mls @ 100 mls/hr IVPB Q8 [facility] PRN Reason: Protocol Stop: 08/20/17 22:01 Last Admin: 08/19/17 05:51 Dose: Not Given Sodium Chloride (Sodium Chloride 0.9%) 1,000 mls @ 75 mls/hr IV .[id number] [facility] Insulin Glargine (Lantus) 10 unit SC HS [facility] Last Admin: 08/18/17 21:00 Dose: 10 unit Insulin Human Regular (Novolin R) 0 unit SC [facility] PRN Reason: Protocol Last Admin: 08/19/17 07:30 Dose: Not Given Ondansetron HCl (Zofran Inj) 4 mg IVP ONCE PRN PRN Reason: Nausea/Vomiting Stop: 08/19/17 14:10 Oxycodone/Acetaminophen (Percocet 5/325 Mg Tab) 1 tab PO Q8 PRN PRN Reason: Pain, moderate (4-7) Stop: 08/19/17 14:01 Last Admin: 08/18/17 20:42 Dose: 1 tab Rosuvastatin Calcium (Crestor) 10 mg PO [facility] Last Admin: 08/18/17 21:00 Dose: 10 mg Vitamin B Complex/Vit C/Folic Acid (Nephro-Cony) 1 tab PO DAILY [facility] Last Admin: 08/18/17 10:00 Dose: 1 tab - Labs Labs: 08/19/17 07:37 08/19/17 07:37 PT 9.6 SECONDS (9.7-12.2) L 08/19/17 07:37 INR 0.9 08/19/17 07:37 APTT 32 SECONDS (21-34) 08/19/17 07:37 - Constitutional Appears: No Acute Distress, Chronically Ill - Head Exam Head Exam: ATRAUMATIC, NORMAL INSPECTION - Eye Exam Eye Exam: EOMI, Normal appearance - Neck Exam Neck Exam: Normal Inspection. absent: Tenderness - Respiratory Exam Respiratory Exam: Clear to Ausculation Bilateral, NORMAL BREATHING PATTERN - Cardiovascular Exam Cardiovascular Exam: REGULAR RHYTHM, +S1 - GI/Abdominal Exam GI & Abdominal Exam: Soft, Tenderness - Extremities Exam Extremities Exam: Calf Tenderness, Tenderness - Neurological Exam Neurological Exam: Alert, CN II-XII Intact - Skin Skin Exam: Dry, Warm Assessment and Plan (1) PVD (peripheral vascular disease) Status: Acute (2) ESRD needing dialysis Status: Acute (3) S/P BKA (below knee amputation) bilateral Status: Acute (4) Type 1 diabetes mellitus with diabetic nephropathy Status: Acute - Assessment and Plan (Free Text) Plan: dialysis TTS repeat K level consider kayexalate/ veltessa same BP meds
[2017-08-19] MEDS: (Lantus) Insulin Glargine, Recombinant SC SCH (22:14)
[2017-08-19] MEDS: Acyclovir 5% Oint (30 gm) EXT SCH (22:17)
--- NOTE | 2017-08-19 22:45 | OP ---
PROCEDURE DATE: 08/19/2017 PREOPERATIVE DIAGNOSIS: Residual portion of Tenckhoff peritoneal catheter. PROCEDURE CARRIED OUT: Removal. SURGEON: Harman Clark Jr., MD SENIOR DESIGN ENGINEERING SPECIALIST: Dr. Blanco. ANESTHESIOLOGIST: Boris Teran CRNA INDICATIONS: The patient is a middle-aged woman with renal insufficiency, presently on hemodialysis catheter, previously had peritoneal dialysis. It was initially left in the abdomen after she had had a subtotal colectomy for bowel problems as a drain. We then attempted to remove it at the bedside and the intraabdominal portion remained. OPERATIVE FINDINGS: There was a cuff just under the external opening, which was removed and in addition the residual portion of the catheter which was intraabdominal was then removed. However, we did not make a separate incision into the abdomen, this slid out easily. The rest of the intraoperative findings were unremarkable. Skin was simply approximated with Steri-Strips at the end where the sites have been. The patient tolerated the procedure well. BLOOD LOSS FOR THE PROCEDURE: 5 mL. OPERATION CARRIED OUT: Removal of residual peritoneal dialysis catheter. SPECIMENS: Two specimens included the cuff and the entire rest of the catheter. Harman Clark Jr., MD
--- NOTE | 2017-08-19 22:49 | CP.PCM.PN ---
Subjective - Date & Time of Evaluation Date of Evaluation: 08/19/17 Time of Evaluation: 22:49 - Subjective Subjective: AFEBRILE, S/P OR TODAY Operation Performed: Removal of Retained Peritoneal Dialysis Catheter Specimen/Specimens Removed: 2 peices of the retained peritoneal dialysis catheter removed. clinically same Objective - Vital Signs/Intake and Output Vital Signs (last 24 hours): Temp Pulse Resp BP Pulse Ox 97.8 F 82 18 121/68 97 08/19/17 15:56 08/19/17 15:56 08/19/17 15:56 08/19/17 17:51 08/19/17 15:56 Intake and Output: 08/19/17 08/20/17 18:59 06:59 Intake Total 400 Balance 400 - Medications Medications: Current Medications Acyclovir (Zovirax 5% Ointment) 0 gm EXT Q6 [facility] Last Admin: 08/19/17 22:17 Dose: 1 applic Amlodipine Besylate (Norvasc) 2.5 mg PO DAILY [facility] Last Admin: 08/18/17 10:00 Dose: 2.5 mg Aspirin (Ecotrin) 81 mg PO DAILY [facility] Last Admin: 08/18/17 09:59 Dose: 81 mg Bacitracin (Bacitracin) 1 gm TOP DAILY [facility] Last Admin: 08/18/17 10:00 Dose: 1 appl Carvedilol (Coreg) 25 mg PO BID [facility] Last Admin: 08/19/17 17:51 Dose: 25 mg Clopidogrel Bisulfate (Plavix) 75 mg PO DAILY [facility] Last Admin: 08/18/17 09:59 Dose: 75 mg Famotidine (Pepcid) 20 mg PO DAILY [facility] Last Admin: 08/18/17 09:59 Dose: 20 mg Gabapentin (Neurontin) 100 mg PO Q12 [facility] Last Admin: 08/19/17 22:13 Dose: 100 mg Hydromorphone HCl (Dilaudid) 0.5 mg IVP Q12 PRN PRN Reason: Pain, severe (8-10) Imipenem/Cilastatin Sodium 250 (mg/ Sodium Chloride) 100 mls @ 100 mls/hr IVPB Q8 [facility] PRN Reason: Protocol Stop: 08/20/17 22:01 Last Admin: 08/19/17 22:13 Dose: 100 mls/hr Sodium Chloride (Sodium Chloride 0.9%) 1,000 mls @ 75 mls/hr IV .[id number] [facility] Insulin Glargine (Lantus) 10 unit SC HS [facility] Last Admin: 08/19/17 22:14 Dose: 10 unit Insulin Human Regular (Novolin R) 0 unit SC ACHS [facility] PRN Reason: Protocol Last Admin: 08/19/17 22:15 Dose: Not Given Rosuvastatin Calcium (Crestor) 10 mg PO [facility] Last Admin: 08/19/17 22:13 Dose: 10 mg Vitamin B Complex/Vit C/Folic Acid (Nephro-Cony) 1 tab PO DAILY [facility] Last Admin: 08/18/17 10:00 Dose: 1 tab - Labs Labs: 08/19/17 07:37 08/19/17 07:37 PT 9.6 SECONDS (9.7-12.2) L 08/19/17 07:37 INR 0.9 08/19/17 07:37 APTT 32 SECONDS (21-34) 08/19/17 07:37 - Constitutional Appears: No Acute Distress - Head Exam Head Exam: NORMAL INSPECTION - Eye Exam Eye Exam: EOMI, PERRL - ENT Exam ENT Exam: Normal Oropharynx - Neck Exam Neck Exam: Normal Inspection - Respiratory Exam Respiratory Exam: Clear to Ausculation Bilateral - Cardiovascular Exam Cardiovascular Exam: REGULAR RHYTHM, +S1 - GI/Abdominal Exam GI & Abdominal Exam: Soft, Hypoactive Bowel Sounds. absent: Tenderness ( colostomy in place.) - Extremities Exam Additional comments: b/l BKA. - Skin Skin Exam: Normal Color, Warm Assessment and Plan (1) Peritoneal dialysis catheter exit site infection Assessment & Plan: S/P OR TODAY-FINDINGS NOTED WOUND CULTURE REPORTED MDR KLEIBSIELLA- S TO AMIKACIN. PATIENT HAD NO iv ACCESS YESTERDAY, SO DID NOT GET ANY ABX. pRESENTLY HAS A hEP-lOCK. PATIENT TO GET 1 DOSE OF AMIKACIN 450 MG ONE DOSE TODAY. DISCUSSED WITH PHARMACY AND STAFF. CONTINUE iv AMIKACIN 350 MG POST EACH HEMODIALYSIS X3 DOSES MORE. .LWC PER SURGERY. CASE DISCUSSED WITH PMD DR. CARTER. WILL HOLD OFF PICC LINE.. DC iv pRIMAXIN 250 MG iv PIGGYBACK EVERY 8 HOURLY FOR CARBAPENEM RESISTANT kLEBSIELLA PN. Status: Acute (2) Weakness of both upper extremities Status: Acute (3) PVD (peripheral vascular disease) Status: Acute (4) S/P BKA (below knee amputation) bilateral Status: Acute (5) End-stage renal disease on hemodialysis Status: Acute (6) Type 2 diabetes mellitus with diabetic nephropathy Status: Acute
[2017-08-20] MEDS: HYDROmorphone 0.5 mg/0.5 ml ISec IVP PRN ×2 (00:58→14:48)
[2017-08-20] MEDS: Acyclovir 5% Oint (30 gm) EXT SCH ×4 (01:00→19:28)
[2017-08-20] MEDS: Sodium Chloride 0.9% 1,000 ML IV SCH ×2 (01:57→21:37)
[2017-08-20] MEDS: (Novolin R) Insulin Human Regular 100 units/ml vial SC SCH ×4 (08:04→21:36)
--- NOTE | 2017-08-20 10:17 | CP.PCM.PN ---
Subjective - Date & Time of Evaluation Date of Evaluation: 08/20/17 Time of Evaluation: 10:16 - Subjective Subjective: s/p pd catheter remnant removal in OR seen on hd afebrile. bp stable denies any pain no n/v/d/sob/cp/cough/f/c/dizziness/weakness/numbness/rash Objective - Vital Signs/Intake and Output Vital Signs (last 24 hours): Temp Pulse Resp BP Pulse Ox 97.7 F 87 20 148/74 97 08/20/17 07:15 08/20/17 07:15 08/20/17 07:15 08/20/17 07:15 08/20/17 07:15 Intake and Output: 08/20/17 08/20/17 06:59 18:59 Intake Total 540 Output Total 550 Balance -10 - Medications Medications: Current Medications Acyclovir (Zovirax 5% Ointment) 0 gm EXT Q6 [facility] Last Admin: 08/20/17 06:00 Dose: 1 applic Amlodipine Besylate (Norvasc) 2.5 mg PO DAILY [facility] Last Admin: 08/18/17 10:00 Dose: 2.5 mg Aspirin (Ecotrin) 81 mg PO DAILY [facility] Last Admin: 08/18/17 09:59 Dose: 81 mg Bacitracin (Bacitracin) 1 gm TOP DAILY [facility] Last Admin: 08/18/17 10:00 Dose: 1 appl Carvedilol (Coreg) 25 mg PO BID [facility] Last Admin: 08/19/17 17:51 Dose: 25 mg Clopidogrel Bisulfate (Plavix) 75 mg PO DAILY [facility] Last Admin: 08/18/17 09:59 Dose: 75 mg Famotidine (Pepcid) 20 mg PO DAILY [facility] Last Admin: 08/18/17 09:59 Dose: 20 mg Gabapentin (Neurontin) 100 mg PO DAILY [facility] Hydromorphone HCl (Dilaudid) 0.5 mg IVP Q12 PRN PRN Reason: Pain, severe (8-10) Last Admin: 08/20/17 00:58 Dose: 0.5 mg Sodium Chloride (Sodium Chloride 0.9%) 1,000 mls @ 75 mls/hr IV .[id number] [facility] Last Admin: 08/20/17 01:57 Dose: Not Given Insulin Glargine (Lantus) 10 unit SC HS [facility] Last Admin: 08/19/17 22:14 Dose: 10 unit Insulin Human Regular (Novolin R) [address] [facility] PRN Reason: Protocol Last Admin: 08/20/17 08:04 Dose: Not Given Rosuvastatin Calcium (Crestor) 10 mg PO HS [facility] Last Admin: 08/19/17 22:13 Dose: 10 mg Vitamin B Complex/Vit C/Folic Acid (Nephro-Cony) 1 tab PO DAILY [facility] Last Admin: 08/18/17 10:00 Dose: 1 tab - Labs Labs: 08/19/17 07:37 08/19/17 07:37 PT 9.6 SECONDS (9.7-12.2) L 08/19/17 07:37 INR 0.9 08/19/17 07:37 APTT 32 SECONDS (21-34) 08/19/17 07:37 - Constitutional Appears: Non-toxic, No Acute Distress, Chronically Ill - Head Exam Head Exam: NORMAL INSPECTION, NORMOCEPHALIC - Eye Exam Eye Exam: Normal appearance, PERRL Pupil Exam: NORMAL ACCOMODATION - ENT Exam ENT Exam: Mucous Membranes Moist, Normal Exam - Neck Exam Neck Exam: Full ROM, Normal Inspection - Respiratory Exam Respiratory Exam: Clear to Ausculation Bilateral, NORMAL BREATHING PATTERN (rt chest permcath) - Cardiovascular Exam Cardiovascular Exam: REGULAR RHYTHM, RRR - GI/Abdominal Exam GI & Abdominal Exam: Distended (dressing in place), Soft (colostomy) - Extremities Exam Extremities Exam: Normal Inspection (b/l amputee) - Neurological Exam Neurological Exam: Alert, Awake, Oriented x3 - Psychiatric Exam Psychiatric exam: Normal Affect, Normal Mood - Skin Skin Exam: Dry, Normal Color, Warm Assessment and Plan (1) ESRD needing dialysis Status: Acute (2) Hyperkalemia Status: Acute (3) PVD (peripheral vascular disease) Status: Acute (4) Peritoneal dialysis catheter exit site infection Status: Acute (5) S/P BKA (below knee amputation) bilateral Status: Acute - Assessment and Plan (Free Text) Assessment: maintain hd tts antibiotics per ID for exit site infection-to be given during hd bp stable. may dc norvasc if drops lower gabapentin dose
[2017-08-20 12:00] LABS: ALB/GLOB RATIO 1.1 (1.0-2.1); ALBUMIN 3.5 g/dL (3.5-5.0); CALCIUM 8.4 mg/dl (8.6-10.4)
[2017-08-20] MEDS: Multivitamin Vitamin B Complex (Nephro-Vite) Tab PO SCH (14:55)
[2017-08-20] MEDS: Bacitracin Ointment 30 GM TUBE TOP SCH (15:02)
--- NOTE | 2017-08-20 15:34 | CP.PCM.PN ---
Subjective - Date & Time of Evaluation Date of Evaluation: 08/20/17 Time of Evaluation: 15:30 - Subjective Subjective: Surgery Progress note. Dr. Clark Pt seen and examined at bedside. no acute events overnight. Received dialysis today. States that her abdominal pain is improving. No n/V/D. No new complaints. Objective - Vital Signs/Intake and Output Vital Signs (last 24 hours): Temp Pulse Resp BP Pulse Ox 98 F 89 16 113/67 98 08/20/17 13:15 08/20/17 13:15 08/20/17 13:15 08/20/17 13:15 08/20/17 13:15 Intake and Output: 08/20/17 08/20/17 06:59 18:59 Intake Total 540 Output Total 550 Balance -10 - Medications Medications: Current Medications Acyclovir (Zovirax 5% Ointment) 0 gm EXT Q6 [facility] Last Admin: 08/20/17 15:02 Dose: 1 applic Amlodipine Besylate (Norvasc) 2.5 mg PO DAILY [facility] Last Admin: 08/20/17 14:55 Dose: 2.5 mg Aspirin (Ecotrin) 81 mg PO DAILY [facility] Last Admin: 08/20/17 14:54 Dose: 81 mg Bacitracin (Bacitracin) 1 gm TOP DAILY [facility] Last Admin: 08/20/17 15:02 Dose: 1 appl Carvedilol (Coreg) 25 mg PO BID [facility] Last Admin: 08/20/17 14:54 Dose: Not Given Clopidogrel Bisulfate (Plavix) 75 mg PO DAILY [facility] Last Admin: 08/20/17 14:54 Dose: 75 mg Famotidine (Pepcid) 20 mg PO DAILY [facility] Last Admin: 08/18/17 09:59 Dose: 20 mg Gabapentin (Neurontin) 100 mg PO DAILY [facility] Hydromorphone HCl (Dilaudid) 0.5 mg IVP Q12 PRN PRN Reason: Pain, severe (8-10) Last Admin: 08/20/17 14:48 Dose: 0.5 mg Sodium Chloride (Sodium Chloride 0.9%) 1,000 mls @ 75 mls/hr IV .[id number] [facility] Last Admin: 08/20/17 01:57 Dose: Not Given Amikacin Sulfate 350 mg/ (Sodium Chloride) 101.4 mls @ 101.4 mls/hr IV ThSa [facility] Stop: 08/24/17 14:59 Insulin Glargine (Lantus) 10 unit SC HS [facility] Last Admin: 08/19/17 22:14 Dose: 10 unit Insulin Human Regular (Novolin R) 0 unit SC ACHS [facility] PRN Reason: Protocol Last Admin: 08/20/17 15:00 Dose: 1 unit Rosuvastatin Calcium (Crestor) 10 mg PO HS [facility] Last Admin: 08/19/17 22:13 Dose: 10 mg Vitamin B Complex/Vit C/Folic Acid (Nephro-Cony) 1 tab PO DAILY [facility] Last Admin: 08/20/17 14:55 Dose: 1 tab - Labs Labs: 08/19/17 07:37 08/20/17 10:21 PT 9.6 SECONDS (9.7-12.2) L 08/19/17 07:37 INR 0.9 08/19/17 07:37 APTT 32 SECONDS (21-34) 08/19/17 07:37 - Constitutional Appears: Well, Non-toxic, No Acute Distress - Head Exam Head Exam: ATRAUMATIC, NORMAL INSPECTION, NORMOCEPHALIC - Eye Exam Eye Exam: EOMI, Normal appearance - ENT Exam ENT Exam: Mucous Membranes Moist - Respiratory Exam Respiratory Exam: NORMAL BREATHING PATTERN. absent: Accessory Muscle Use, Respiratory Distress - GI/Abdominal Exam GI & Abdominal Exam: Soft. absent: Distended, Firm, Guarding, Rigid, Tenderness Additional comments: Dressings clean, dry and intact. No rebound, no guarding. Soft. Ostomy in place with stool output Assessment and Plan - Assessment and Plan (Free Text) Assessment: 51yo F s/p removal of retained PD catheter. POD1 Plan: - No further surgical intervention needed at this time - follow up with Dr. Clark in office. Call for appointment Further recs as per Dr. Eduardo Blanco PGY1 surgery pager: [phone]
--- NOTE | 2017-08-20 20:47 | CP.PCM.PN ---
Subjective - Date & Time of Evaluation Date of Evaluation: 08/20/17 Time of Evaluation: 20:47 - Subjective Subjective: POD # 1 S/P HD. ABDOMINAL PAIN IMPROVED, S/P REMOVAL OF RESIDUAL PD CATHETER. pATIENT DID NOT GET HIS AMIKACIN ORDERED. CASE DISCUSSED WITH RN MR CASEY. CASE DISCUSSED WITH PHARMACY. PATIENT TO GET 3 DOSES OF AMIKACIN POST HEMODIALYSIS T/T/S. AMIKACIN 450MG LD POST HD TODAY . AMIKACIN 350MG POST HD SATURDAY/ AND SATURDAY POST HD. LWC PER VASCULAR SURGERY. NO NEED FOR PICC LINE AT THIS TIME .CAN GET INFECTED WITH MDR KLEI[place]A PNEUMONIA. Objective - Vital Signs/Intake and Output Vital Signs (last 24 hours): Temp Pulse Resp BP Pulse Ox 98.4 F 87 20 106/54 L 100 08/20/17 15:00 08/20/17 15:40 08/20/17 15:00 08/20/17 19:27 08/20/17 15:00 - Medications Medications: Current Medications Acyclovir (Zovirax 5% Ointment) 0 gm EXT Q6 [facility] Last Admin: 08/20/17 19:28 Dose: 1 applic Amlodipine Besylate (Norvasc) 2.5 mg PO DAILY [facility] Last Admin: 08/20/17 14:55 Dose: 2.5 mg Aspirin (Ecotrin) 81 mg PO DAILY [facility] Last Admin: 08/20/17 14:54 Dose: 81 mg Bacitracin (Bacitracin) 1 gm TOP DAILY [facility] Last Admin: 08/20/17 15:02 Dose: 1 appl Carvedilol (Coreg) 25 mg PO BID [facility] Last Admin: 08/20/17 19:27 Dose: Not Given Clopidogrel Bisulfate (Plavix) 75 mg PO DAILY [facility] Last Admin: 08/20/17 14:54 Dose: 75 mg Famotidine (Pepcid) 20 mg PO DAILY [facility] Last Admin: 08/18/17 09:59 Dose: 20 mg Gabapentin (Neurontin) 100 mg PO DAILY [facility] Hydromorphone HCl (Dilaudid) 0.5 mg IVP Q12 PRN PRN Reason: Pain, severe (8-10) Last Admin: 08/20/17 14:48 Dose: 0.5 mg Sodium Chloride (Sodium Chloride 0.9%) 1,000 mls @ 75 mls/hr IV .[id number] [facility] Last Admin: 08/20/17 01:57 Dose: Not Given Amikacin Sulfate 350 mg/ (Sodium Chloride) 101.4 mls @ 101.4 mls/hr IV ThSa [facility] Stop: 08/24/17 14:59 Insulin Glargine (Lantus) 10 unit SC HS [facility] Last Admin: 08/19/17 22:14 Dose: 10 unit Insulin Human Regular (Novolin R) 0 unit SC ACHS [facility] PRN Reason: Protocol Last Admin: 08/20/17 19:27 Dose: Not Given Rosuvastatin Calcium (Crestor) 10 mg PO HS [facility] Last Admin: 08/19/17 22:13 Dose: 10 mg Vitamin B Complex/Vit C/Folic Acid (Nephro-Cony) 1 tab PO DAILY [facility] Last Admin: 08/20/17 14:55 Dose: 1 tab - Labs Labs: 08/19/17 07:37 08/20/17 10:21 PT 9.6 SECONDS (9.7-12.2) L 08/19/17 07:37 INR 0.9 08/19/17 07:37 APTT 32 SECONDS (21-34) 08/19/17 07:37 - Constitutional Appears: No Acute Distress - Head Exam Head Exam: NORMAL INSPECTION - Eye Exam Eye Exam: EOMI, PERRL - ENT Exam ENT Exam: Normal Oropharynx - Neck Exam Neck Exam: Normal Inspection - Respiratory Exam Respiratory Exam: Clear to Ausculation Bilateral - Cardiovascular Exam Cardiovascular Exam: REGULAR RHYTHM, +S1, +S2 - GI/Abdominal Exam GI & Abdominal Exam: Soft, Normal Bowel Sounds (COLOSTOMY FUNCTIONING.). absent : Tenderness - Back Exam Additional comments: B/L BKA - Neurological Exam Neurological Exam: Awake, Oriented x3 - Psychiatric Exam Psychiatric exam: Normal Mood - Skin Skin Exam: Normal Color, Warm Assessment and Plan (1) Peritoneal dialysis catheter exit site infection Status: Acute (2) Weakness of both upper extremities Status: Acute (3) PVD (peripheral vascular disease) Status: Acute (4) S/P BKA (below knee amputation) bilateral Status: Acute (5) End-stage renal disease on hemodialysis Status: Acute (6) Type 2 diabetes mellitus with diabetic nephropathy Status: Acute - Assessment and Plan (Free Text) Plan: PER ABOVE.
[2017-08-20] MEDS: (Lantus) Insulin Glargine, Recombinant SC SCH ×2 (21:35→21:55)
--- NOTE | 2017-08-20 22:14 | CP.PCM.PN ---
Subjective - Date & Time of Evaluation Date of Evaluation: 08/20/17 Time of Evaluation: 22:14 - Subjective Subjective: Patient had hemodialysis this morning. Patient serum potassium level is elevated. Denies any chest pain. Bilateral leg pain noted. Vital signs stable. Chest good air entry. Assessment: 51-year-old female admitted with hyperkalemia, near cardiac arrest. End-stage renal disease on dialysis. Diabetes Hypertension Peripheral vascular disease. Plan: Currently on intravenous antibiotic the mucus and during the dialysis. Patient will be receiving hemodialysis. Persistent hyperkalemia noted, suggested diet control. Nutrition evaluation needed. Will follow the patient Objective - Vital Signs/Intake and Output Vital Signs (last 24 hours): Temp Pulse Resp BP Pulse Ox 98.4 F 87 20 106/54 L 100 08/20/17 15:00 08/20/17 15:40 08/20/17 15:00 08/20/17 19:27 08/20/17 15:00 - Medications Medications: Current Medications Acyclovir (Zovirax 5% Ointment) 0 gm EXT Q6 [facility] Last Admin: 08/20/17 19:28 Dose: 1 applic Amlodipine Besylate (Norvasc) 2.5 mg PO DAILY [facility] Last Admin: 08/20/17 14:55 Dose: 2.5 mg Aspirin (Ecotrin) 81 mg PO DAILY [facility] Last Admin: 08/20/17 14:54 Dose: 81 mg Bacitracin (Bacitracin) 1 gm TOP DAILY [facility] Last Admin: 08/20/17 15:02 Dose: 1 appl Carvedilol (Coreg) 25 mg PO BID [facility] Last Admin: 08/20/17 19:27 Dose: Not Given Clopidogrel Bisulfate (Plavix) 75 mg PO DAILY [facility] Last Admin: 08/20/17 14:54 Dose: 75 mg Famotidine (Pepcid) 20 mg PO DAILY [facility] Last Admin: 08/18/17 09:59 Dose: 20 mg Gabapentin (Neurontin) 100 mg PO DAILY [facility] Hydromorphone HCl (Dilaudid) 0.5 mg IVP Q12 PRN PRN Reason: Pain, severe (8-10) Last Admin: 08/20/17 14:48 Dose: 0.5 mg Sodium Chloride (Sodium Chloride 0.9%) 1,000 mls @ 75 mls/hr IV .[id number] [facility] Last Admin: 08/20/17 21:37 Dose: Not Given Amikacin Sulfate 350 mg/ (Sodium Chloride) 101.4 mls @ 101.4 mls/hr IV ThSa [facility] Stop: 08/24/17 14:59 Insulin Glargine (Lantus) 10 unit SC HS [facility] Last Admin: 08/20/17 21:55 Dose: Not Given Insulin Human Regular (Novolin R) 0 unit SC ACHS [facility] PRN Reason: Protocol Last Admin: 08/20/17 21:36 Dose: Not Given Rosuvastatin Calcium (Crestor) 10 mg PO [facility] Last Admin: 08/20/17 21:35 Dose: 10 mg Vitamin B Complex/Vit C/Folic Acid (Nephro-Cony) 1 tab PO DAILY [facility] Last Admin: 08/20/17 14:55 Dose: 1 tab - Labs Labs: 08/19/17 07:37 08/20/17 10:21 PT 9.6 SECONDS (9.7-12.2) L 08/19/17 07:37 INR 0.9 08/19/17 07:37 APTT 32 SECONDS (21-34) 08/19/17 07:37
[2017-08-21] MEDS: Acyclovir 5% Oint (30 gm) EXT SCH ×4 (00:45→18:00)
[2017-08-21] MEDS: Sodium Chloride 0.9% 1,000 ML IV SCH ×2 (04:59→17:42)
[2017-08-21] MEDS: (Novolin R) Insulin Human Regular 100 units/ml vial SC SCH ×4 (07:55→21:31)
--- NOTE | 2017-08-21 08:15 | CP.PCM.PN ---
Subjective - Date & Time of Evaluation Date of Evaluation: 08/21/17 Time of Evaluation: 08:12 - Subjective Subjective: No acute complaints Tolerating diet Had HD yesterday Noted high K no chest pain no sob no nausea no vomiting chronic pain no itch no fever no headache Objective - Vital Signs/Intake and Output Vital Signs (last 24 hours): Temp Pulse Resp BP Pulse Ox 98 F 89 20 160/79 H 99 08/21/17 08:00 08/21/17 08:00 08/21/17 08:00 08/21/17 08:00 08/21/17 08:00 - Medications Medications: Current Medications Acyclovir (Zovirax 5% Ointment) 0 gm EXT Q6 [facility] Last Admin: 08/21/17 07:00 Dose: 1 applic Amlodipine Besylate (Norvasc) 2.5 mg PO DAILY [facility] Last Admin: 08/20/17 14:55 Dose: 2.5 mg Aspirin (Ecotrin) 81 mg PO DAILY [facility] Last Admin: 08/20/17 14:54 Dose: 81 mg Bacitracin (Bacitracin) 1 gm TOP DAILY [facility] Last Admin: 08/20/17 15:02 Dose: 1 appl Carvedilol (Coreg) 25 mg PO BID [facility] Last Admin: 08/20/17 19:27 Dose: Not Given Clopidogrel Bisulfate (Plavix) 75 mg PO DAILY [facility] Last Admin: 08/20/17 14:54 Dose: 75 mg Famotidine (Pepcid) 20 mg PO DAILY [facility] Last Admin: 08/18/17 09:59 Dose: 20 mg Gabapentin (Neurontin) 100 mg PO DAILY [facility] Hydromorphone HCl (Dilaudid) 0.5 mg IVP Q12 PRN PRN Reason: Pain, severe (8-10) Last Admin: 08/20/17 14:48 Dose: 0.5 mg Sodium Chloride (Sodium Chloride 0.9%) 1,000 mls @ 75 mls/hr IV .[id number] [facility] Last Admin: 08/21/17 04:59 Dose: Not Given Amikacin Sulfate 350 mg/ (Sodium Chloride) 101.4 mls @ 101.4 mls/hr IV ThSa [facility] Stop: 08/24/17 14:59 Insulin Glargine (Lantus) 10 unit SC HS [facility] Last Admin: 08/20/17 21:55 Dose: Not Given Insulin Human Regular (Novolin R) 0 unit SC ACHS [facility] PRN Reason: Protocol Last Admin: 08/21/17 07:55 Dose: Not Given Rosuvastatin Calcium (Crestor) 10 mg PO HS [facility] Last Admin: 08/20/17 21:35 Dose: 10 mg Vitamin B Complex/Vit C/Folic Acid (Nephro-Cony) 1 tab PO DAILY [facility] Last Admin: 08/20/17 14:55 Dose: 1 tab - Labs Labs: 08/19/17 07:37 08/20/17 10:21 PT 9.6 SECONDS (9.7-12.2) L 08/19/17 07:37 INR 0.9 08/19/17 07:37 APTT 32 SECONDS (21-34) 08/19/17 07:37 - Constitutional Appears: No Acute Distress, Chronically Ill - Head Exam Head Exam: ATRAUMATIC, NORMAL INSPECTION - Eye Exam Eye Exam: EOMI, Normal appearance - ENT Exam ENT Exam: Mucous Membranes Moist - Neck Exam Neck Exam: Full ROM. absent: Lymphadenopathy - Respiratory Exam Respiratory Exam: Decreased Breath Sounds. absent: Accessory Muscle Use - Cardiovascular Exam Cardiovascular Exam: REGULAR RHYTHM. absent: Rubs - GI/Abdominal Exam GI & Abdominal Exam: Distended, Tenderness Additional comments: colostomy, no rebound or guarding - Extremities Exam Additional comments: bilateral bka, sites appear c/d/i - Neurological Exam Neurological Exam: Alert, Oriented x3 Assessment and Plan - Assessment and Plan (Free Text) Assessment: monitor abdomen post PD cath removal monitor po check K today nutrition eval for low K diet ?stevie
[2017-08-21] MEDS: Multivitamin Vitamin B Complex (Nephro-Vite) Tab PO SCH (09:28)
[2017-08-21] MEDS: Bacitracin Ointment 30 GM TUBE TOP SCH (10:00)
--- NOTE | 2017-08-21 11:07 | CP.PCM.PN ---
Subjective - Date & Time of Evaluation Date of Evaluation: 08/19/17 Time of Evaluation: 11:06 - Subjective Subjective: Patient still continues to have pain. Abdominal wound culture reviewed. Gram-negative bacteria noted. Patient will be seen by surgery. patient underwent removal today On examination: Chest good air entry. Regular heart sounds. Abdomen colostomy noted, draining Bilateral below-knee amputation. Assessment: 51-year-old female, end-stage renal disease on dialysis. Patient has a hemodialysis catheter. Patient has a colostomy. Bilateral below-knee amputation secondary to peripheral vascular disease. Plan Patient has a gram-negative bacteria in the abdominal wall cellulitis, suggested ID evaluation. Surgical evaluation. For hemodialysis. Patient continues to have hyperkalemia, HD, diet, advised Objective - Vital Signs/Intake and Output Vital Signs (last 24 hours): Temp Pulse Resp BP Pulse Ox 98 F 89 20 160/79 H 99 08/21/17 09:12 08/21/17 08:00 08/21/17 08:00 08/21/17 08:00 08/21/17 08:00 - Medications Medications: Current Medications Acetaminophen (Tylenol 325mg Tab) 650 mg PO Q6 PRN PRN Reason: Pain, moderate (4-7) Last Admin: 08/21/17 09:12 Dose: 650 mg Acyclovir (Zovirax 5% Ointment) 0 gm EXT Q6 [facility] Last Admin: 08/21/17 07:00 Dose: 1 applic Amlodipine Besylate (Norvasc) 2.5 mg PO DAILY [facility] Last Admin: 08/21/17 09:27 Dose: Not Given Aspirin (Ecotrin) 81 mg PO DAILY [facility] Last Admin: 08/21/17 09:27 Dose: 81 mg Bacitracin (Bacitracin) 1 gm TOP DAILY [facility] Last Admin: 08/20/17 15:02 Dose: 1 appl Carvedilol (Coreg) 25 mg PO BID [facility] Last Admin: 08/21/17 09:26 Dose: Not Given Clopidogrel Bisulfate (Plavix) 75 mg PO DAILY [facility] Last Admin: 08/21/17 09:21 Dose: Not Given Famotidine (Pepcid) 20 mg PO DAILY [facility] Last Admin: 08/21/17 09:27 Dose: 20 mg Gabapentin (Neurontin) 100 mg PO DAILY [facility] Last Admin: 08/21/17 10:00 Dose: 100 mg Hydromorphone HCl (Dilaudid) 0.5 mg IVP Q12 PRN PRN Reason: Pain, severe (8-10) Last Admin: 08/20/17 14:48 Dose: 0.5 mg Sodium Chloride (Sodium Chloride 0.9%) 1,000 mls @ 75 mls/hr IV .[id number] [facility] Last Admin: 08/21/17 04:59 Dose: Not Given Amikacin Sulfate 350 mg/ (Sodium Chloride) 101.4 mls @ 101.4 mls/hr IV ThSa [facility] Stop: 08/24/17 14:59 Insulin Glargine (Lantus) 10 unit SC [facility] Last Admin: 08/20/17 21:55 Dose: Not Given Insulin Human Regular (Novolin R) 0 unit SC ACHS [facility] PRN Reason: Protocol Last Admin: 08/21/17 07:55 Dose: Not Given Rosuvastatin Calcium (Crestor) 10 mg PO [facility] Last Admin: 08/20/17 21:35 Dose: 10 mg Vitamin B Complex/Vit C/Folic Acid (Nephro-Cony) 1 tab PO DAILY [facility] Last Admin: 08/21/17 09:28 Dose: 1 tab - Labs Labs: 08/19/17 07:37 08/20/17 10:21 PT 9.6 SECONDS (9.7-12.2) L 08/19/17 07:37 INR 0.9 08/19/17 07:37 APTT 32 SECONDS (21-34) 08/19/17 07:37
[2017-08-21 11:35] LABS: ALBUMIN 3.8 g/dL (3.5-5.0)
[2017-08-21] MEDS: HYDROmorphone 0.5 mg/0.5 ml ISec IVP PRN (17:42)
--- NOTE | 2017-08-21 19:07 | CARD ---
APPROVED REPORT EKG Measurement Heart [id number] <Conclusion> Undetermined rhythm Nonspecific intraventricular block Lateral infarct, age undetermined Abnormal ECG
--- NOTE | 2017-08-21 19:09 | CARD ---
APPROVED REPORT EKG Measurement Heart [id number] <Conclusion> Age and gender specific ECG analysis Undetermined rhythm Indeterminate axis Low voltage QRS r/o Hyperkalemia Abnormal ECG
[2017-08-21] MEDS: (Lantus) Insulin Glargine, Recombinant SC SCH (21:56)
[2017-08-22] MEDS: Acyclovir 5% Oint (30 gm) EXT SCH ×4 (00:21→18:08)
[2017-08-22] MEDS: HYDROmorphone 0.5 mg/0.5 ml ISec IVP PRN (06:06)
[2017-08-22] MEDS: Sodium Chloride 0.9% 1,000 ML IV SCH (07:48)
[2017-08-22] MEDS: (Novolin R) Insulin Human Regular 100 units/ml vial SC SCH ×4 (08:27→22:02)
--- NOTE | 2017-08-22 09:46 | CP.PCM.PN ---
Subjective - Date & Time of Evaluation Date of Evaluation: 08/22/17 Time of Evaluation: 09:43 - Subjective Subjective: Seen at dialysis K 4.7 now K diet control explained to patient on IV amikacin for MDR wound infection not dyspneic, no f, chills, n, v, diarrhea Objective - Vital Signs/Intake and Output Vital Signs (last 24 hours): Temp Pulse Resp BP Pulse Ox 98.3 F 81 17 164/77 H 99 08/22/17 09:00 08/22/17 09:00 08/22/17 09:00 08/22/17 09:15 08/22/17 09:00 Intake and Output: 08/22/17 08/22/17 06:59 18:59 Intake Total 304 Balance 304 - Medications Medications: Current Medications Acetaminophen (Tylenol 325mg Tab) 650 mg PO Q6 PRN PRN Reason: Pain, moderate (4-7) Last Admin: 08/21/17 09:12 Dose: 650 mg Acyclovir (Zovirax 5% Ointment) 0 gm EXT Q6 [facility] Last Admin: 08/22/17 06:17 Dose: 1 applic Amlodipine Besylate (Norvasc) 5 mg PO DAILY [facility] Aspirin (Ecotrin) 81 mg PO DAILY [facility] Last Admin: 08/21/17 09:27 Dose: 81 mg Bacitracin (Bacitracin) 1 gm TOP DAILY [facility] Last Admin: 08/21/17 10:00 Dose: 1 appl Carvedilol (Coreg) 25 mg PO BID [facility] Last Admin: 08/21/17 17:41 Dose: 25 mg Clopidogrel Bisulfate (Plavix) 75 mg PO DAILY [facility] Last Admin: 08/21/17 09:21 Dose: Not Given Famotidine (Pepcid) 20 mg PO DAILY [facility] Last Admin: 08/21/17 09:27 Dose: 20 mg Gabapentin (Neurontin) 100 mg PO DAILY [facility] Last Admin: 08/21/17 10:00 Dose: 100 mg Hydromorphone HCl (Dilaudid) 0.5 mg IVP Q12 PRN PRN Reason: Pain, severe (8-10) Last Admin: 08/22/17 06:06 Dose: 0.5 mg Amikacin Sulfate 350 mg/ (Sodium Chloride) 101.4 mls @ 101.4 mls/hr IV ThSa [facility] Stop: 08/24/17 14:59 Insulin Glargine (Lantus) 10 unit SC HS [facility] Last Admin: 08/21/17 21:56 Dose: 10 unit Insulin Human Regular (Novolin R) 0 unit SC [facility] PRN Reason: Protocol Last Admin: 08/22/17 08:27 Dose: Not Given Rosuvastatin Calcium (Crestor) 10 mg PO HS [facility] Last Admin: 08/21/17 21:54 Dose: 10 mg Vitamin B Complex/Vit C/Folic Acid (Nephro-Cony) 1 tab PO DAILY [facility] Last Admin: 08/21/17 09:28 Dose: 1 tab - Labs Labs: 08/19/17 07:37 08/21/17 11:00 PT 9.6 SECONDS (9.7-12.2) L 08/19/17 07:37 INR 0.9 08/19/17 07:37 APTT 32 SECONDS (21-34) 08/19/17 07:37 - Constitutional Appears: No Acute Distress, Chronically Ill - Head Exam Head Exam: ATRAUMATIC, NORMAL INSPECTION - Eye Exam Eye Exam: EOMI, Normal appearance - Neck Exam Neck Exam: Normal Inspection. absent: Tenderness - Respiratory Exam Respiratory Exam: Clear to Ausculation Bilateral, NORMAL BREATHING PATTERN - Cardiovascular Exam Cardiovascular Exam: REGULAR RHYTHM, +S1 - GI/Abdominal Exam GI & Abdominal Exam: Soft. absent: Tenderness - Extremities Exam Extremities Exam: Normal Inspection. absent: Tenderness - Neurological Exam Neurological Exam: Alert, CN II-XII Intact - Skin Skin Exam: Dry, Warm Assessment and Plan (1) PVD (peripheral vascular disease) Status: Acute (2) ESRD needing dialysis Status: Acute (3) S/P BKA (below knee amputation) bilateral Status: Acute (4) Type 1 diabetes mellitus with diabetic nephropathy Status: Acute (5) Hyperkalemia Status: Acute - Assessment and Plan (Free Text) Plan: Same dialysis - TTS Low K diet; follow up K levels IV ABs for MDR wound Increase BP med dose Stop IV fluids
[2017-08-22] MEDS: Bacitracin Ointment 30 GM TUBE TOP SCH (10:12)
[2017-08-22] MEDS: Multivitamin Vitamin B Complex (Nephro-Vite) Tab PO SCH ×2 (10:13→14:21)
--- NOTE | 2017-08-22 19:54 | CP.PCM.PN ---
Subjective - Date & Time of Evaluation Date of Evaluation: 08/22/17 Time of Evaluation: 19:54 Objective - Vital Signs/Intake and Output Vital Signs (last 24 hours): Temp Pulse Resp BP Pulse Ox 98.3 F 81 18 188/85 H 100 08/22/17 15:55 08/22/17 15:55 08/22/17 15:55 08/22/17 16:59 08/22/17 15:55 Intake and Output: 08/22/17 08/23/17 18:59 06:59 Intake Total 340 Balance 340 - Medications Medications: Current Medications Acetaminophen (Tylenol 325mg Tab) 650 mg PO Q6 PRN PRN Reason: Pain, moderate (4-7) Last Admin: 08/22/17 18:07 Dose: 650 mg Acyclovir (Zovirax 5% Ointment) 0 gm EXT Q6 [facility] Last Admin: 08/22/17 18:08 Dose: Not Given Amlodipine Besylate (Norvasc) 5 mg PO DAILY [facility] Last Admin: 08/22/17 10:14 Dose: Not Given Aspirin (Ecotrin) 81 mg PO DAILY [facility] Last Admin: 08/22/17 14:21 Dose: 81 mg Bacitracin (Bacitracin) 1 gm TOP DAILY [facility] Last Admin: 08/22/17 10:12 Dose: Not Given Carvedilol (Coreg) 25 mg PO BID [facility] Last Admin: 08/22/17 16:59 Dose: 25 mg Clopidogrel Bisulfate (Plavix) 75 mg PO DAILY [facility] Last Admin: 08/22/17 14:24 Dose: 75 mg Famotidine (Pepcid) 20 mg PO DAILY [facility] Last Admin: 08/22/17 14:21 Dose: 20 mg Gabapentin (Neurontin) 100 mg PO DAILY [facility] Last Admin: 08/22/17 11:23 Dose: 100 mg Hydromorphone HCl (Dilaudid) 0.5 mg IVP Q12 PRN PRN Reason: Pain, severe (8-10) Last Admin: 08/22/17 06:06 Dose: 0.5 mg Amikacin Sulfate 350 mg/ (Sodium Chloride) 101.4 mls @ 101.4 mls/hr IV ThSa [facility] Stop: 08/24/17 14:59 Last Admin: 08/22/17 13:14 Dose: Not Given Insulin Glargine (Lantus) 10 unit SC HS [facility] Last Admin: 08/21/17 21:56 Dose: 10 unit Insulin Human Regular (Novolin R) 0 unit SC [facility] PRN Reason: Protocol Last Admin: 08/22/17 16:48 Dose: 4 unit Rosuvastatin Calcium (Crestor) 10 mg PO HS [facility] Last Admin: 08/21/17 21:54 Dose: 10 mg Vitamin B Complex/Vit C/Folic Acid (Nephro-Cony) 1 tab PO DAILY [facility] Last Admin: 08/22/17 14:21 Dose: 1 tab - Labs Labs: 08/19/17 07:37 08/21/17 11:00 PT 9.6 SECONDS (9.7-12.2) L 08/19/17 07:37 INR 0.9 08/19/17 07:37 APTT 32 SECONDS (21-34) 08/19/17 07:37
--- NOTE | 2017-08-22 19:54 | CP.PCM.PN ---
Subjective - Date & Time of Evaluation Date of Evaluation: 08/21/17 Objective - Vital Signs/Intake and Output Vital Signs (last 24 hours): Temp Pulse Resp BP Pulse Ox 98.3 F 81 18 188/85 H 100 08/22/17 15:55 08/22/17 15:55 08/22/17 15:55 08/22/17 16:59 08/22/17 15:55 Intake and Output: 08/22/17 08/23/17 18:59 06:59 Intake Total 340 Balance 340 - Medications Medications: Current Medications Acetaminophen (Tylenol 325mg Tab) 650 mg PO Q6 PRN PRN Reason: Pain, moderate (4-7) Last Admin: 08/22/17 18:07 Dose: 650 mg Acyclovir (Zovirax 5% Ointment) 0 gm EXT Q6 [facility] Last Admin: 08/22/17 18:08 Dose: Not Given Amlodipine Besylate (Norvasc) 5 mg PO DAILY [facility] Last Admin: 08/22/17 10:14 Dose: Not Given Aspirin (Ecotrin) 81 mg PO DAILY [facility] Last Admin: 08/22/17 14:21 Dose: 81 mg Bacitracin (Bacitracin) 1 gm TOP DAILY [facility] Last Admin: 08/22/17 10:12 Dose: Not Given Carvedilol (Coreg) 25 mg PO BID [facility] Last Admin: 08/22/17 16:59 Dose: 25 mg Clopidogrel Bisulfate (Plavix) 75 mg PO DAILY [facility] Last Admin: 08/22/17 14:24 Dose: 75 mg Famotidine (Pepcid) 20 mg PO DAILY [facility] Last Admin: 08/22/17 14:21 Dose: 20 mg Gabapentin (Neurontin) 100 mg PO DAILY [facility] Last Admin: 08/22/17 11:23 Dose: 100 mg Hydromorphone HCl (Dilaudid) 0.5 mg IVP Q12 PRN PRN Reason: Pain, severe (8-10) Last Admin: 08/22/17 06:06 Dose: 0.5 mg Amikacin Sulfate 350 mg/ (Sodium Chloride) 101.4 mls @ 101.4 mls/hr IV ThSa [facility] Stop: 08/24/17 14:59 Last Admin: 08/22/17 13:14 Dose: Not Given Insulin Glargine (Lantus) 10 unit SC [facility] Last Admin: 08/21/17 21:56 Dose: 10 unit Insulin Human Regular (Novolin R) 0 unit SC [facility] PRN Reason: Protocol Last Admin: 08/22/17 16:48 Dose: 4 unit Rosuvastatin Calcium (Crestor) 10 mg PO HS [facility] Last Admin: 08/21/17 21:54 Dose: 10 mg Vitamin B Complex/Vit C/Folic Acid (Nephro-Cony) 1 tab PO DAILY [facility] Last Admin: 08/22/17 14:21 Dose: 1 tab - Labs Labs: 08/19/17 07:37 08/21/17 11:00 PT 9.6 SECONDS (9.7-12.2) L 08/19/17 07:37 INR 0.9 08/19/17 07:37 APTT 32 SECONDS (21-34) 08/19/17 07:37
[2017-08-22] MEDS: (Lantus) Insulin Glargine, Recombinant SC SCH (22:02)
[2017-08-23] MEDS ORDERED: HYDROmorphone 0.5 mg/0.5 ml ISec IM STA (03:12)
[2017-08-23] MEDS: Acyclovir 5% Oint (30 gm) EXT SCH ×4 (06:16→17:09)
[2017-08-23] MEDS: (Novolin R) Insulin Human Regular 100 units/ml vial SC SCH ×4 (07:57→21:25)
[2017-08-23] MEDS: Multivitamin Vitamin B Complex (Nephro-Vite) Tab PO SCH (10:25)
[2017-08-23] MEDS: Bacitracin Ointment 30 GM TUBE TOP SCH ×2 (11:54→11:55)
--- NOTE | 2017-08-23 13:12 | CP.PCM.PN ---
Subjective - Date & Time of Evaluation Date of Evaluation: 08/23/17 Time of Evaluation: 13:08 - Subjective Subjective: s/p dialysis 08/22 receiving IV amikacin- not necessarily available as outpt dialysis LLQ wounds healing no SOB, n, v, f, chills, diarrhea BP better controlled Objective - Vital Signs/Intake and Output Vital Signs (last 24 hours): Temp Pulse Resp BP Pulse Ox 97.8 F 89 18 149/65 100 08/23/17 07:10 08/23/17 10:24 08/23/17 07:10 08/23/17 10:25 08/23/17 07:10 - Medications Medications: Current Medications Acetaminophen (Tylenol 325mg Tab) 650 mg PO Q6 PRN PRN Reason: Pain, moderate (4-7) Last Admin: 08/23/17 10:23 Dose: 650 mg Acyclovir (Zovirax 5% Ointment) 0 gm EXT Q6 [facility] Last Admin: 08/23/17 11:54 Dose: 1 applic Amlodipine Besylate (Norvasc) 5 mg PO DAILY [facility] Last Admin: 08/23/17 10:25 Dose: 5 mg Aspirin (Ecotrin) 81 mg PO DAILY [facility] Last Admin: 08/23/17 10:26 Dose: 81 mg Bacitracin (Bacitracin) 1 gm TOP DAILY [facility] Last Admin: 08/23/17 11:55 Dose: 1 appl Carvedilol (Coreg) 25 mg PO BID [facility] Last Admin: 08/23/17 10:25 Dose: 25 mg Clopidogrel Bisulfate (Plavix) 75 mg PO DAILY [facility] Last Admin: 08/23/17 10:26 Dose: Not Given Famotidine (Pepcid) 20 mg PO DAILY [facility] Last Admin: 08/23/17 10:26 Dose: 20 mg Gabapentin (Neurontin) 100 mg PO DAILY [facility] Last Admin: 08/23/17 10:25 Dose: 100 mg Hydromorphone HCl (Dilaudid) 0.5 mg SC Q12H PRN PRN Reason: Pain, severe (8-10) Amikacin Sulfate 350 mg/ (Sodium Chloride) 101.4 mls @ 101.4 mls/hr IV ThSa [facility] Stop: 08/24/17 14:59 Last Admin: 08/22/17 13:14 Dose: Not Given Insulin Glargine (Lantus) 10 unit SC HS [facility] Last Admin: 08/22/17 22:02 Dose: 10 unit Insulin Human Regular (Novolin R) 0 unit SC [facility] PRN Reason: Protocol Last Admin: 08/23/17 11:53 Dose: 2 unit Rosuvastatin Calcium (Crestor) 10 mg PO HS [facility] Last Admin: 08/22/17 22:08 Dose: Not Given Vitamin B Complex/Vit C/Folic Acid (Nephro-Cony) 1 tab PO DAILY [facility] Last Admin: 08/23/17 10:25 Dose: 1 tab - Labs Labs: 08/19/17 07:37 08/21/17 11:00 PT 9.6 SECONDS (9.7-12.2) L 08/19/17 07:37 INR 0.9 08/19/17 07:37 APTT 32 SECONDS (21-34) 08/19/17 07:37 - Constitutional Appears: Non-toxic, No Acute Distress, Chronically Ill - Head Exam Head Exam: ATRAUMATIC, NORMAL INSPECTION - Eye Exam Eye Exam: EOMI, Normal appearance - Neck Exam Neck Exam: Normal Inspection. absent: Tenderness - Respiratory Exam Respiratory Exam: Clear to Ausculation Bilateral, NORMAL BREATHING PATTERN - Cardiovascular Exam Cardiovascular Exam: REGULAR RHYTHM, +S1 - GI/Abdominal Exam GI & Abdominal Exam: Soft. absent: Tenderness - Extremities Exam Extremities Exam: Calf Tenderness, Tenderness - Neurological Exam Neurological Exam: Alert, CN II-XII Intact - Skin Skin Exam: Dry, Warm Assessment and Plan (1) PVD (peripheral vascular disease) Status: Acute (2) ESRD needing dialysis Status: Acute (3) S/P BKA (below knee amputation) bilateral Status: Acute (4) Type 1 diabetes mellitus with diabetic nephropathy Status: Acute (5) Hyperkalemia Status: Acute - Assessment and Plan (Free Text) Plan: dialysis TTS IV amikacin Same BP meds need to see how long amikacin will be needed and try to obtain as outpt, at dialysis
[2017-08-23] MEDS: (Lantus) Insulin Glargine, Recombinant SC SCH (21:32)
[2017-08-24] MEDS: Acyclovir 5% Oint (30 gm) EXT SCH ×4 (00:30→17:13)
[2017-08-24] MEDS: (Novolin R) Insulin Human Regular 100 units/ml vial SC SCH ×4 (07:45→22:15)
--- NOTE | 2017-08-24 10:53 | CP.PCM.PN ---
Subjective - Date & Time of Evaluation Date of Evaluation: 08/24/17 Time of Evaluation: 10:51 - Subjective Subjective: seen on HD 2.5 kg uf using catheter no complaints no chest pain no fever no sob mild abdominal pain no pruritis no headache chronic musche aches anuric no sinus tenderness Objective - Vital Signs/Intake and Output Vital Signs (last 24 hours): Temp Pulse Resp BP Pulse Ox 97.7 F 84 15 148/85 99 08/24/17 09:05 08/24/17 09:00 08/24/17 09:05 08/24/17 10:35 08/24/17 09:05 Intake and Output: 08/24/17 08/24/17 06:59 18:59 Intake Total 500 Output Total 500 Balance 0 - Medications Medications: Current Medications Acetaminophen (Tylenol 325mg Tab) 650 mg PO Q6 PRN PRN Reason: Pain, moderate (4-7) Last Admin: 08/24/17 03:13 Dose: 650 mg Acyclovir (Zovirax 5% Ointment) 0 gm EXT Q6 [facility] Last Admin: 08/24/17 06:12 Dose: Not Given Amlodipine Besylate (Norvasc) 5 mg PO DAILY [facility] Last Admin: 08/23/17 10:25 Dose: 5 mg Aspirin (Ecotrin) 81 mg PO DAILY [facility] Last Admin: 08/23/17 10:26 Dose: 81 mg Bacitracin (Bacitracin) 1 gm TOP DAILY [facility] Last Admin: 08/23/17 11:55 Dose: 1 appl Carvedilol (Coreg) 25 mg PO BID [facility] Last Admin: 08/24/17 10:40 Dose: Not Given Clopidogrel Bisulfate (Plavix) 75 mg PO DAILY [facility] Last Admin: 08/23/17 10:26 Dose: Not Given Famotidine (Pepcid) 20 mg PO DAILY [facility] Last Admin: 08/23/17 10:26 Dose: 20 mg Gabapentin (Neurontin) 100 mg PO DAILY [facility] Last Admin: 08/23/17 10:25 Dose: 100 mg Hydromorphone HCl (Dilaudid) 0.5 mg SC Q12H PRN PRN Reason: Pain, severe (8-10) Amikacin Sulfate 350 mg/ (Sodium Chloride) 101.4 mls @ 101.4 mls/hr IV ThSa [facility] Stop: 08/24/17 14:59 Last Admin: 08/22/17 13:14 Dose: Not Given Insulin Glargine (Lantus) 10 unit SC HS [facility] Last Admin: 08/23/17 21:32 Dose: 10 unit Insulin Human Regular (Novolin R) 0 unit SC [facility] PRN Reason: Protocol Last Admin: 08/24/17 07:45 Dose: 1 unit Rosuvastatin Calcium (Crestor) 10 mg PO HS [facility] Last Admin: 08/23/17 21:30 Dose: 10 mg Vitamin B Complex/Vit C/Folic Acid (Nephro-Cony) 1 tab PO DAILY [facility] Last Admin: 08/23/17 10:25 Dose: 1 tab - Labs Labs: 08/19/17 07:37 08/21/17 11:00 PT 9.6 SECONDS (9.7-12.2) L 08/19/17 07:37 INR 0.9 08/19/17 07:37 APTT 32 SECONDS (21-34) 08/19/17 07:37 - Constitutional Appears: Chronically Ill - Head Exam Head Exam: ATRAUMATIC, NORMAL INSPECTION - Eye Exam Eye Exam: EOMI - ENT Exam ENT Exam: Mucous Membranes Moist - Neck Exam Neck Exam: Full ROM. absent: Lymphadenopathy - Respiratory Exam Respiratory Exam: Clear to Ausculation Bilateral, NORMAL BREATHING PATTERN - Cardiovascular Exam Cardiovascular Exam: REGULAR RHYTHM. absent: Rubs - GI/Abdominal Exam GI & Abdominal Exam: Tenderness. absent: Rebound Additional comments: colostomy - Extremities Exam Additional comments: bilateral amputee Assessment and Plan - Assessment and Plan (Free Text) Assessment: esrd s/p abdominal surgery for PD catheter fragment removal htn hyperkalemia, better continue AB and post surgical care
[2017-08-24] MEDS: Multivitamin Vitamin B Complex (Nephro-Vite) Tab PO SCH (13:18)
[2017-08-24] MEDS: Bacitracin Ointment 30 GM TUBE TOP SCH (14:16)
--- NOTE | 2017-08-24 18:14 | CP.PCM.PN ---
Subjective - Date & Time of Evaluation Date of Evaluation: 08/24/17 Time of Evaluation: 18:14 Objective - Vital Signs/Intake and Output Vital Signs (last 24 hours): Temp Pulse Resp BP Pulse Ox 98.1 F 92 H 20 121/67 100 08/24/17 15:00 08/24/17 15:00 08/24/17 15:00 08/24/17 15:00 08/24/17 15:00 Intake and Output: 08/24/17 08/24/17 06:59 18:59 Intake Total 500 300 Output Total 500 Balance 0 300 - Medications Medications: Current Medications Acetaminophen (Tylenol 325mg Tab) 650 mg PO Q6 PRN PRN Reason: Pain, moderate (4-7) Last Admin: 08/24/17 17:11 Dose: 650 mg Acyclovir (Zovirax 5% Ointment) 0 gm EXT Q6 [facility] Last Admin: 08/24/17 17:13 Dose: 1 applic Amlodipine Besylate (Norvasc) 5 mg PO DAILY [facility] Last Admin: 08/24/17 13:18 Dose: 5 mg Aspirin (Ecotrin) 81 mg PO DAILY [facility] Last Admin: 08/24/17 13:18 Dose: 81 mg Bacitracin (Bacitracin) 1 gm TOP DAILY [facility] Last Admin: 08/24/17 14:16 Dose: 1 appl Carvedilol (Coreg) 25 mg PO BID [facility] Last Admin: 08/24/17 10:40 Dose: Not Given Clopidogrel Bisulfate (Plavix) 75 mg PO DAILY [facility] Last Admin: 08/24/17 13:19 Dose: Not Given Famotidine (Pepcid) 20 mg PO DAILY [facility] Last Admin: 08/24/17 13:18 Dose: 20 mg Gabapentin (Neurontin) 100 mg PO DAILY [facility] Last Admin: 08/24/17 13:19 Dose: 100 mg Hydromorphone HCl (Dilaudid) 0.5 mg SC Q12H PRN PRN Reason: Pain, severe (8-10) Insulin Glargine (Lantus) 10 unit SC [facility] Last Admin: 08/23/17 21:32 Dose: 10 unit Insulin Human Regular (Novolin R) 0 unit SC [facility] PRN Reason: Protocol Last Admin: 08/24/17 16:50 Dose: Not Given Rosuvastatin Calcium (Crestor) 10 mg PO [facility] Last Admin: 08/23/17 21:30 Dose: 10 mg Vitamin B Complex/Vit C/Folic Acid (Nephro-Cony) 1 tab PO DAILY [facility] Last Admin: 08/24/17 13:18 Dose: 1 tab - Labs Labs: 08/19/17 07:37 08/21/17 11:00 PT 9.6 SECONDS (9.7-12.2) L 08/19/17 07:37 INR 0.9 08/19/17 07:37 APTT 32 SECONDS (21-34) 08/19/17 07:37
--- NOTE | 2017-08-24 20:03 | CP.PCM.PN ---
Subjective - Date & Time of Evaluation Date of Evaluation: 08/24/17 Time of Evaluation: 20:03 - Subjective Subjective: S/P HD TODAY ABDOMINAL PAIN IMPROVED, S/P REMOVAL OF RESIDUAL PD CATHETER. WOUNDS ABDOMEN AND PD CATHETHER SITE HEALING. DRESSING CHANGED TODAY. ON HD TTS PER RENAL Objective - Vital Signs/Intake and Output Vital Signs (last 24 hours): Temp Pulse Resp BP Pulse Ox 98.1 F 92 H 20 117/67 100 08/24/17 15:00 08/24/17 15:00 08/24/17 15:00 08/24/17 18:57 08/24/17 15:00 Intake and Output: 08/24/17 08/25/17 18:59 06:59 Intake Total 300 Balance 300 - Medications Medications: Current Medications Acetaminophen (Tylenol 325mg Tab) 650 mg PO Q6 PRN PRN Reason: Pain, moderate (4-7) Last Admin: 08/24/17 17:11 Dose: 650 mg Acyclovir (Zovirax 5% Ointment) 0 gm EXT Q6 [facility] Last Admin: 08/24/17 17:13 Dose: 1 applic Amlodipine Besylate (Norvasc) 5 mg PO DAILY [facility] Last Admin: 08/24/17 13:18 Dose: 5 mg Aspirin (Ecotrin) 81 mg PO DAILY [facility] Last Admin: 08/24/17 13:18 Dose: 81 mg Bacitracin (Bacitracin) 1 gm TOP DAILY [facility] Last Admin: 08/24/17 14:16 Dose: 1 appl Carvedilol (Coreg) 25 mg PO BID [facility] Last Admin: 08/24/17 18:57 Dose: Not Given Clopidogrel Bisulfate (Plavix) 75 mg PO DAILY [facility] Last Admin: 08/24/17 13:19 Dose: Not Given Famotidine (Pepcid) 20 mg PO DAILY [facility] Last Admin: 08/24/17 13:18 Dose: 20 mg Gabapentin (Neurontin) 100 mg PO DAILY [facility] Last Admin: 08/24/17 13:19 Dose: 100 mg Hydromorphone HCl (Dilaudid) 0.5 mg SC Q12H PRN PRN Reason: Pain, severe (8-10) Insulin Glargine (Lantus) 10 unit SC HS [facility] Last Admin: 08/23/17 21:32 Dose: 10 unit Insulin Human Regular (Novolin R) 0 unit SC ACHS [facility] PRN Reason: Protocol Last Admin: 08/24/17 16:50 Dose: Not Given Rosuvastatin Calcium (Crestor) 10 mg PO HS [facility] Last Admin: 08/23/17 21:30 Dose: 10 mg Vitamin B Complex/Vit C/Folic Acid (Nephro-Cony) 1 tab PO DAILY [facility] Last Admin: 08/24/17 13:18 Dose: 1 tab - Labs Labs: 08/19/17 07:37 08/21/17 11:00 PT 9.6 SECONDS (9.7-12.2) L 08/19/17 07:37 INR 0.9 08/19/17 07:37 APTT 32 SECONDS (21-34) 08/19/17 07:37 - Constitutional Appears: No Acute Distress - Head Exam Head Exam: NORMAL INSPECTION - Eye Exam Eye Exam: EOMI, PERRL - ENT Exam ENT Exam: Normal Oropharynx - Neck Exam Neck Exam: Normal Inspection - Respiratory Exam Respiratory Exam: Clear to Ausculation Bilateral - Cardiovascular Exam Cardiovascular Exam: REGULAR RHYTHM, +S1, +S2 - GI/Abdominal Exam GI & Abdominal Exam: Soft, Normal Bowel Sounds. absent: Tenderness (+VE DRESSING AND STERRI STRIPS ABDOMINAL WALL.) Additional comments: +VE COLOSTOMY. - Extremities Exam Additional comments: B/L BKA - Neurological Exam Neurological Exam: Awake, CN II-XII Intact, Oriented x3 - Psychiatric Exam Psychiatric exam: Normal Mood - Skin Skin Exam: Normal Color, Warm Assessment and Plan (1) Peritoneal dialysis catheter exit site infection Assessment & Plan: AMIKACIN 350MG POST HD SATURDAY/ AND SATURDAY, AND Saturday08/27/17 POST HD. [facility]WC PER VASCULAR SURGERY. Status: Acute (2) Weakness of both upper extremities Status: Acute (3) PVD (peripheral vascular disease) Status: Acute (4) S/P BKA (below knee amputation) bilateral Status: Acute (5) End-stage renal disease on hemodialysis Status: Acute (6) Type 2 diabetes mellitus with diabetic nephropathy Status: Acute
[2017-08-24] MEDS: (Lantus) Insulin Glargine, Recombinant SC SCH (21:37)
[2017-08-25] MEDS: HYDROmorphone 0.5 mg/0.5 ml ISec SC PRN (00:50)
[2017-08-25] MEDS: Acyclovir 5% Oint (30 gm) EXT SCH ×4 (00:51→17:42)
[2017-08-25] MEDS: (Novolin R) Insulin Human Regular 100 units/ml vial SC SCH ×4 (07:59→21:33)
[2017-08-25] MEDS: Multivitamin Vitamin B Complex (Nephro-Vite) Tab PO SCH (09:28)
[2017-08-25] MEDS: Bacitracin Ointment 30 GM TUBE TOP SCH ×2 (09:29→14:46)
[2017-08-25] MEDS: (Lantus) Insulin Glargine, Recombinant SC SCH (21:58)
[2017-08-26] MEDS: Acyclovir 5% Oint (30 gm) EXT SCH ×4 (00:11→17:30)
[2017-08-26] MEDS: HYDROmorphone 0.5 mg/0.5 ml ISec SC PRN ×2 (00:12→12:14)
[2017-08-26] MEDS: Multivitamin Vitamin B Complex (Nephro-Vite) Tab PO SCH (09:36)
[2017-08-26] MEDS: (Novolin R) Insulin Human Regular 100 units/ml vial SC SCH ×4 (09:36→21:24)
[2017-08-26] MEDS: Bacitracin Ointment 30 GM TUBE TOP SCH (09:37)
--- NOTE | 2017-08-26 12:22 | CP.PCM.PN ---
Subjective - Date & Time of Evaluation Date of Evaluation: 08/26/17 Time of Evaluation: 12:19 - Subjective Subjective: stable dialysis 08/24- but BP has been lower c/o wekness, lightheaded at times finished IV amikacin labs acceptable Objective - Vital Signs/Intake and Output Vital Signs (last 24 hours): Temp Pulse Resp BP Pulse Ox 97.8 F 66 18 117/65 99 08/26/17 12:07 08/26/17 12:07 08/26/17 12:07 08/26/17 12:07 08/26/17 12:07 Intake and Output: 08/26/17 08/26/17 06:59 18:59 Intake Total 800 Balance 800 - Medications Medications: Current Medications Acetaminophen (Tylenol 325mg Tab) 650 mg PO Q6 PRN PRN Reason: Pain, moderate (4-7) Last Admin: 08/24/17 17:11 Dose: 650 mg Acyclovir (Zovirax 5% Ointment) 0 gm EXT Q6 [facility] Last Admin: 08/26/17 05:21 Dose: 1 applic Amlodipine Besylate (Norvasc) 5 mg PO DAILY [facility] Last Admin: 08/26/17 09:35 Dose: 5 mg Aspirin (Ecotrin) 81 mg PO DAILY [facility] Last Admin: 08/26/17 09:36 Dose: 81 mg Bacitracin (Bacitracin) 1 gm TOP DAILY [facility] Last Admin: 08/26/17 09:37 Dose: 1 appl Carvedilol (Coreg) 25 mg PO BID [facility] Last Admin: 08/26/17 09:35 Dose: 25 mg Clopidogrel Bisulfate (Plavix) 75 mg PO DAILY [facility] Last Admin: 08/26/17 09:36 Dose: 75 mg Famotidine (Pepcid) 20 mg PO DAILY [facility] Last Admin: 08/26/17 09:36 Dose: 20 mg Gabapentin (Neurontin) 100 mg PO DAILY [facility] Last Admin: 08/26/17 09:35 Dose: 100 mg Hydromorphone HCl (Dilaudid) 0.5 mg SC Q12H PRN PRN Reason: Pain, severe (8-10) Last Admin: 08/26/17 12:14 Dose: 0.5 mg Insulin Glargine (Lantus) 10 unit SC [facility] Last Admin: 08/25/17 21:58 Dose: 10 unit Insulin Human Regular (Novolin R) 0 unit SC ACHS [facility] PRN Reason: Protocol Last Admin: 08/26/17 09:36 Dose: Not Given Rosuvastatin Calcium (Crestor) 10 mg PO HS [facility] Last Admin: 08/25/17 21:58 Dose: 10 mg Vitamin B Complex/Vit C/Folic Acid (Nephro-Cony) 1 tab PO DAILY [facility] Last Admin: 08/26/17 09:36 Dose: 1 tab - Labs Labs: 08/19/17 07:37 08/21/17 11:00 PT 9.6 SECONDS (9.7-12.2) L 08/19/17 07:37 INR 0.9 08/19/17 07:37 APTT 32 SECONDS (21-34) 08/19/17 07:37 - Constitutional Appears: No Acute Distress, Chronically Ill - Head Exam Head Exam: ATRAUMATIC, NORMAL INSPECTION - Eye Exam Eye Exam: EOMI, Normal appearance - Neck Exam Neck Exam: Normal Inspection. absent: Tenderness - Respiratory Exam Respiratory Exam: Clear to Ausculation Bilateral, NORMAL BREATHING PATTERN - Cardiovascular Exam Cardiovascular Exam: REGULAR RHYTHM, +S1 - GI/Abdominal Exam GI & Abdominal Exam: Soft. absent: Tenderness - Extremities Exam Extremities Exam: Normal Inspection. absent: Tenderness - Neurological Exam Neurological Exam: Awake, CN II-XII Intact - Skin Skin Exam: Dry, Warm Assessment and Plan (1) PVD (peripheral vascular disease) Status: Acute (2) ESRD needing dialysis Status: Acute (3) S/P BKA (below knee amputation) bilateral Status: Acute (4) Type 1 diabetes mellitus with diabetic nephropathy Status: Acute (5) Hyperkalemia Status: Acute - Assessment and Plan (Free Text) Plan: lower amlodipine dose same dialysis TTS monitor for fever
--- NOTE | 2017-08-26 13:45 | CP.PCM.PN ---
Subjective - Date & Time of Evaluation Date of Evaluation: 08/26/17 Time of Evaluation: 09:00 - Subjective Subjective: Patient was seen and examined at bedside. Patient reports she has mild abdominal pain, improving since admission. Tolerating diet well. 12 point ROS unremarkable. Objective - Vital Signs/Intake and Output Vital Signs (last 24 hours): Temp Pulse Resp BP Pulse Ox 97.8 F 66 18 117/65 99 08/26/17 12:07 08/26/17 12:07 08/26/17 12:07 08/26/17 12:07 08/26/17 12:07 Intake and Output: 08/26/17 08/26/17 06:59 18:59 Intake Total 800 Balance 800 - Medications Medications: Current Medications Acetaminophen (Tylenol 325mg Tab) 650 mg PO Q6 PRN PRN Reason: Pain, moderate (4-7) Last Admin: 08/24/17 17:11 Dose: 650 mg Acyclovir (Zovirax 5% Ointment) 0 gm EXT Q6 [facility] Last Admin: 08/26/17 12:35 Dose: 1 applic Amlodipine Besylate (Norvasc) 2.5 mg PO DAILY [facility] Last Admin: 08/26/17 12:37 Dose: Not Given Aspirin (Ecotrin) 81 mg PO DAILY [facility] Last Admin: 08/26/17 09:36 Dose: 81 mg Bacitracin (Bacitracin) 1 gm TOP DAILY [facility] Last Admin: 08/26/17 09:37 Dose: 1 appl Carvedilol (Coreg) 25 mg PO BID [facility] Last Admin: 08/26/17 09:35 Dose: 25 mg Clopidogrel Bisulfate (Plavix) 75 mg PO DAILY [facility] Last Admin: 08/26/17 09:36 Dose: 75 mg Famotidine (Pepcid) 20 mg PO DAILY [facility] Last Admin: 08/26/17 09:36 Dose: 20 mg Gabapentin (Neurontin) 100 mg PO DAILY [facility] Last Admin: 08/26/17 09:35 Dose: 100 mg Hydromorphone HCl (Dilaudid) 0.5 mg SC Q12H PRN PRN Reason: Pain, severe (8-10) Last Admin: 08/26/17 12:14 Dose: 0.5 mg Insulin Glargine (Lantus) 10 unit SC [facility] Last Admin: 03/25/18 21:58 Dose: 10 unit Insulin Human Regular (Novolin R) 0 unit SC ACHS [facility] PRN Reason: Protocol Last Admin: 08/26/17 12:24 Dose: 2 unit Rosuvastatin Calcium (Crestor) 10 mg PO HS [facility] Last Admin: 08/25/17 21:58 Dose: 10 mg Vitamin B Complex/Vit C/Folic Acid (Nephro-Cony) 1 tab PO DAILY [facility] Last Admin: 08/26/17 09:36 Dose: 1 tab - Labs Labs: 08/19/17 07:37 08/21/17 11:00 PT 9.6 SECONDS (9.7-12.2) L 08/19/17 07:37 INR 0.9 08/19/17 07:37 APTT 32 SECONDS (21-34) 08/19/17 07:37 - Constitutional Appears: No Acute Distress - Head Exam Head Exam: NORMAL INSPECTION, NORMOCEPHALIC - Eye Exam Eye Exam: EOMI, Normal appearance, PERRL Pupil Exam: NORMAL ACCOMODATION - ENT Exam ENT Exam: Mucous Membranes Moist, Normal Exam - Respiratory Exam Respiratory Exam: Clear to Ausculation Bilateral, NORMAL BREATHING PATTERN. absent: Decreased Breath Sounds - Cardiovascular Exam Cardiovascular Exam: REGULAR RHYTHM - GI/Abdominal Exam GI & Abdominal Exam: Soft, Normal Bowel Sounds. absent: Distended, Tenderness, Organomegaly Additional comments: Colostomy bag with stool Peritoneal dialysis catheter exit site - incision is healing well, dressing is clean, dry, and intact - Rectal Exam Rectal Exam: Deferred - Extremities Exam Additional comments: bilateral BKA - Neurological Exam Neurological Exam: Alert, Awake, Oriented x3 - Psychiatric Exam Psychiatric exam: Normal Affect, Normal Mood - Skin Skin Exam: Dry, Intact, Normal Color, Warm Assessment and Plan - Assessment and Plan (Free Text) Assessment: Ms. 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 Plan: Abdominal Wall Cellulitis 2/2 retained peritoneal dialysis catheter Removed on 08/19/17 by surgery Wound culture grew MDR- Klebsiella sensitive to Amikacin Will complete Amikacin 350mg IVP course 08/27/17 Hyperkalemia, Arrhythmia on Admission Resolved Immediate dialysis was performed in ED ESRD on HD (TTS) T2DM DM Neuropathy Lantus 10mg SC QHS Gabapentin daily HTN Norvasc decreased to 2.5mg PO daily, Coreg 25mg PO BID HLD Crestor 10mg PO QHS PVD s/p BL BKA ASA, plavix Disposition: Anticipate discharge tomorrow after dialysis DW Dr. Lodr, Vicki Cain DO, PGY-1
[2017-08-26] MEDS: (Lantus) Insulin Glargine, Recombinant SC SCH (21:30)
[2017-08-27] MEDS: HYDROmorphone 0.5 mg/0.5 ml ISec SC PRN ×2 (01:00→13:13)
[2017-08-27] MEDS: Acyclovir 5% Oint (30 gm) EXT SCH ×4 (01:07→17:51)
[2017-08-27] MEDS: (Novolin R) Insulin Human Regular 100 units/ml vial SC SCH ×2 (08:03→11:30)
--- NOTE | 2017-08-27 10:06 | CP.PCM.PN ---
Subjective - Date & Time of Evaluation Date of Evaluation: 08/27/17 Time of Evaluation: 10:04 - Subjective Subjective: seen and examined on hd bp stable estimated uf 2L comfortable. chronic pain denies n/v/d/sob/dizziness/cp/rash/headache/fevers/chills Objective - Vital Signs/Intake and Output Vital Signs (last 24 hours): Temp Pulse Resp BP Pulse Ox 98.5 F 88 20 137/73 99 08/27/17 07:30 08/27/17 07:30 08/27/17 07:30 08/27/17 07:30 08/27/17 07:30 - Medications Medications: Current Medications Acetaminophen (Tylenol 325mg Tab) 650 mg PO Q6 PRN PRN Reason: Pain, moderate (4-7) Last Admin: 08/24/17 17:11 Dose: 650 mg Acyclovir (Zovirax 5% Ointment) 0 gm EXT Q6 [facility] Last Admin: 08/27/17 06:28 Dose: Not Given Amlodipine Besylate (Norvasc) 2.5 mg PO DAILY [facility] Last Admin: 08/26/17 12:37 Dose: Not Given Aspirin (Ecotrin) 81 mg PO DAILY [facility] Last Admin: 08/26/17 09:36 Dose: 81 mg Bacitracin (Bacitracin) 1 gm TOP DAILY [facility] Last Admin: 08/26/17 09:37 Dose: 1 appl Carvedilol (Coreg) 25 mg PO BID [facility] Last Admin: 08/26/17 17:32 Dose: 25 mg Clopidogrel Bisulfate (Plavix) 75 mg PO DAILY [facility] Last Admin: 08/26/17 09:36 Dose: 75 mg Famotidine (Pepcid) 20 mg PO DAILY [facility] Last Admin: 08/26/17 09:36 Dose: 20 mg Gabapentin (Neurontin) 100 mg PO DAILY [facility] Last Admin: 08/26/17 09:35 Dose: 100 mg Hydromorphone HCl (Dilaudid) 0.5 mg SC Q12H PRN PRN Reason: Pain, severe (8-10) Last Admin: 08/27/17 01:00 Dose: 0.5 mg Amikacin Sulfate 350 mg/ (Dextrose) 251.4 mls @ 250 mls/hr IVPB ONCE ONE PRN Reason: Protocol Stop: 08/27/17 13:00 Insulin Glargine (Lantus) 10 unit SC [facility] Last Admin: 08/26/17 21:30 Dose: 10 unit Insulin Human Regular (Novolin R) 0 unit SC [facility] PRN Reason: Protocol Last Admin: 08/27/17 08:03 Dose: Not Given Rosuvastatin Calcium (Crestor) 10 mg PO [facility] Last Admin: 08/26/17 21:30 Dose: 10 mg Vitamin B Complex/Vit C/Folic Acid (Nephro-Cony) 1 tab PO DAILY [facility] Last Admin: 08/26/17 09:36 Dose: 1 tab - Labs Labs: 08/19/17 07:37 08/21/17 11:00 PT 9.6 SECONDS (9.7-12.2) L 08/19/17 07:37 INR 0.9 08/19/17 07:37 APTT 32 SECONDS (21-34) 08/19/17 07:37 - Constitutional Appears: Non-toxic, No Acute Distress, Cachectic, Chronically Ill - Head Exam Head Exam: NORMAL INSPECTION - Eye Exam Eye Exam: Normal appearance Pupil Exam: PERRL - ENT Exam ENT Exam: Mucous Membranes Moist, Normal Exam - Neck Exam Neck Exam: Full ROM, Normal Inspection - Respiratory Exam Respiratory Exam: Clear to Ausculation Bilateral, NORMAL BREATHING PATTERN - Cardiovascular Exam Cardiovascular Exam: REGULAR RHYTHM, RRR - GI/Abdominal Exam GI & Abdominal Exam: Distended, Soft - Extremities Exam Extremities Exam: Normal Inspection (b/l amputee) - Neurological Exam Neurological Exam: Alert, Awake, Oriented x3 - Psychiatric Exam Psychiatric exam: Normal Affect, Normal Mood - Skin Skin Exam: Dry, Intact, Warm Assessment and Plan (1) ESRD needing dialysis Status: Acute (2) Hyperkalemia Status: Acute (3) PVD (peripheral vascular disease) Status: Acute (4) Peritoneal dialysis catheter exit site infection Status: Acute (5) S/P BKA (below knee amputation) bilateral Status: Acute - Assessment and Plan (Free Text) Assessment: maintain hd tts, labs drawn today w/ hd hgb at goal antibiotic course stable from renal standpoint.
[2017-08-27] MEDS: Bacitracin Ointment 30 GM TUBE TOP SCH (10:49)
[2017-08-27 10:50] LABS: BASO # 0.1 K/uL (0.0-0.2); BASO % 0.9 % (0.0-2.0); EOS # 0.1 K/uL (0.0-0.7); EOS % 1.9 % (0.0-4.0); HEMOGLOBIN 10.2 g/dL (11.0-16.0); LYMPH # 2.2 K/uL (1.0-4.3); LYMPH % 28.8 % (20.0-40.0); MEAN CELL VOLUME 98.2 fL (81.0-99.0); MEAN CORPUSCULAR HEMOGLOBIN 32.6 pg (27.0-31.0); MEAN CORPUSCULAR HGB CONC 33.2 g/dL (33.0-37.0); MEAN PLATELET VOLUME 9.3 fL (7.2-11.7); MONO # 0.4 K/uL (0.0-0.8); MONO % 5.4 % (0.0-10.0); NEUT # 4.9 K/uL (1.8-7.0); RBC 3.14 Mil/uL (3.80-5.20); RED CELL DISTRIBUTION WIDTH 17.7 % (11.5-14.5); WHITE BLOOD COUNT 7.7 K/uL (4.8-10.8)
[2017-08-27] MEDS: Multivitamin Vitamin B Complex (Nephro-Vite) Tab PO SCH ×2 (10:50→14:18)
[2017-08-27 11:34] LABS: CALCIUM 9.2 mg/dl (8.6-10.4)
[2017-08-27] MEDS ORDERED: WATER IVPB ONE (12:00)
[2017-08-27] MEDS ORDERED: DEXTROSE 5% IVPB ONE (12:00)
[2017-08-27] MEDS ORDERED: AMIKACIN SULFATE IVPB ONE (12:00)
[2017-08-27 12:45] VITALS: PULSE 91
[2017-08-27 13:39] VITALS: BP 126/72; RESP 20; TEMP 97.7; O2SAT 99
--- NOTE | 2017-08-27 14:33 | CP.PCM.DIS ---
Provider - Provider Date of Admission: 08/14/17 22:32 Attending physician: Rod Lord MD Time Spent in preparation of Discharge (in minutes): 55 Hospital Course - Lab Results Lab Results: Micro Results 08/18/17 14:01 Blood Blood Culture - Final NO GROWTH AFTER 5 DAYS 08/18/17 14:01 Blood Gram Stain - Final TEST NOT PERFORMED 08/16/17 12:55 Abdomen Gram Stain - Final 08/16/17 12:55 Abdomen Wound Culture - Final Klebsiella Pneumoniae Ssp Pneu Most Recent Lab Values WBC 7.7 K/uL (4.8-10.8) 08/27/17 10:42 RBC 3.14 Mil/uL (3.80-5.20) L 08/27/17 10:42 Hgb 10.2 g/dL (11.0-16.0) L 08/27/17 10:42 Hct 30.8 % (34.0-47.0) L 08/27/17 10:42 MCV 98.2 fL (81.0-99.0) 08/27/17 10:42 MCH 32.6 pg (27.0-31.0) H 08/27/17 10:42 MCHC 33.2 g/dL (33.0-37.0) 08/27/17 10:42 RDW 17.7 % (11.5-14.5) H 08/27/17 10:42 Plt Count 240 K/uL (130-400) 08/27/17 10:42 MPV 9.3 fL (7.2-11.7) 08/27/17 10:42 Neut % (Auto) 63.0 % (50.0-75.0) 08/27/17 10:42 Lymph % (Auto) 28.8 % (20.0-40.0) 08/27/17 10:42 [place] % (Auto) 5.4 % (0.0-10.0) 08/27/17 10:42 Eos % (Auto) 1.9 % (0.0-4.0) 08/27/17 10:42 Baso % (Auto) 0.9 % (0.0-2.0) 08/27/17 10:42 Neut # (Auto) 4.9 K/uL (1.8-7.0) 08/27/17 10:42 Lymph # (Auto) 2.2 K/uL (1.0-4.3) 08/27/17 10:42 Dupage # (Auto) 0.4 K/uL (0.0-0.8) 08/27/17 10:42 Eos # (Auto) 0.1 K/uL (0.0-0.7) 08/27/17 10:42 Baso # (Auto) 0.1 K/uL (0.0-0.2) 08/27/17 10:42 PT 9.6 SECONDS (9.7-12.2) L 08/19/17 07:37 INR 0.9 08/19/17 07:37 APTT 32 SECONDS (21-34) 08/19/17 07:37 Sodium 137 mmol/L (132-148) 08/27/17 10:42 Potassium 5.0 mmol/L (3.6-5.2) 08/27/17 10:42 Chloride 102 mmol/L (98-107) 08/27/17 10:42 Carbon Dioxide 16 mmol/L (22-30) L 08/27/17 10:42 Anion Gap 24 (10-20) H 08/27/17 10:42 BUN 57 mg/dL (7-17) H 08/27/17 10:42 Creatinine 8.5 mg/dL (0.7-1.2) H* D 08/27/17 10:42 Est GFR ( Amer) 6 08/27/17 10:42 Est GFR (Non-Af Amer) 5 08/27/17 10:42 POC Glucose (mg/dL) 130 mg/dL (65-110) H 08/27/17 11:22 Random Glucose 130 mg/dL (65-105) H 08/27/17 10:42 Hemoglobin A1c 7.7 % (4.2-6.5) H D 08/14/17 20:52 Calcium 9.2 mg/dl (8.6-10.4) 08/27/17 10:42 Phosphorus 7.7 mg/dL (2.5-4.5) H 08/17/17 13:54 Total Bilirubin 0.4 mg/dL (0.2-1.3) 08/21/17 11:00 AST 34 U/L (14-36) 08/21/17 11:00 ALT 20 U/L (9-52) 08/21/17 11:00 Alkaline Phosphatase 75 U/L (38-126) 08/21/17 11:00 Troponin I < 0.0120 ng/mL (0.00-0.120) 08/14/17 21:29 NT-Pro-B Natriuret Pep 6910 pg/mL (0-900) H 08/14/17 21:27 Total Protein 7.6 g/dL (6.3-8.3) 08/21/17 11:00 Albumin 3.8 g/dL (3.5-5.0) 08/21/17 11:00 Globulin 3.8 gm/dL (2.2-3.9) 08/21/17 11:00 Albumin/Globulin Ratio 1.0 (1.0-2.1) 08/21/17 11:00 Triglycerides 176 mg/dL (0-149) H 08/14/17 21:27 Cholesterol 113 mg/dL (0-199) 08/14/17 21:27 LDL Cholesterol Direct 35 mg/dL (0-129) 08/14/17 21:27 HDL Cholesterol 35 mg/dL (30-70) 08/14/17 21:27 Beta HCG, Quant < 2.39 mIU/ML 08/19/17 07:37 Blood Type O POSITIVE 08/14/17 21:08 Antibody Screen Negative 08/14/17 21:08 - Hospital Course Hospital Course: Upon Admission: Chief complaint: AMS History of present illness: 51-year-old female with a history of hypertension, end-stage renal disease, was on peritoneal dialysis, converted to hemodialysis, hypercholesterolemia, diabetes, history of pneumonia, history of peripheral vascular disease. Patient had a bilateral leg gangrene, complicated with bilateral below-knee amputation. Patient does not have any other major active symptoms, including pain. pt came to office on Saturday and at that time she told me that she missed her dialysis. Pt suppose to have the HD again at the center and pt did not go. last night she was screaming for help and neighbour called ambulance and at that time she was more drowsy and unable to move the UE. IN ER concerned about stroke but after in the monitor she was having severe arrhythmia and suspected hyperkalemic changes and treatment given and urger HD done in ER. Pt improved I spoke to her son and explained this life threatening event because of her missing HD and very non compliance with treatment. also she has some abdominal wall skin changed Past medical history: As noted above Surgical history: Patient has a hemodialysis catheter and the right internal jugular vein. Bilateral below-knee amputation bilateral Patient has severe constipation, complicated with colitis, impending rupture, underwent near total colectomy, and colostomy. Allergies: No known drug allergy Personal history: Used to be a smoker in the past, also was using drugs in the past. Denies any alcohol Review of systems Currently having no headache, no chest pain or shortness of breath. Right hemodialysis catheter in the internal jugular vein. Colostomy. Below-knee limitation bilaterally. Throughout Hospital Course: Ms. 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 Plan: Abdominal Wall Cellulitis 2/2 retained peritoneal dialysis catheter Removed on 08/19/17 by surgery Wound culture grew MDR- Klebsiella sensitive to Amikacin Will complete Amikacin 350mg IVP course 08/27/17 Hyperkalemia, Arrhythmia on Admission Resolved Immediate dialysis was performed in ED ESRD on HD (TTS) T2DM DM Neuropathy Lantus 10mg SC QHS Gabapentin daily HTN Norvasc decreased to 2.5mg PO daily, Coreg 25mg PO BID HLD Crestor 10mg PO QHS PVD s/p BL BKA ASA, plavix Discharge Exam - Head Exam Head Exam: NORMAL INSPECTION - Eye Exam Eye Exam: EOMI, Normal appearance, PERRL Pupil Exam: NORMAL ACCOMODATION - ENT Exam ENT Exam: Mucous Membranes Moist - Respiratory Exam Respiratory Exam: Clear to PA & Lateral, NORMAL BREATHING PATTERN - Cardiovascular Exam Cardiovascular Exam: REGULAR RHYTHM - GI/Abdominal Exam GI & Abdominal Exam: Normal Bowel Sounds, Soft. absent: Distended Additional comments: Colostomy bag with stool Peritoneal dialysis catheter exit site - incision is healing well, dressing is clean, dry, and intact - Extremities Exam Additional comments: bilateral BKA - Neurological Exam Neurological exam: Alert, Oriented x3 - Psychiatric Exam Psychiatric exam: Normal Affect, Normal Mood - Skin Skin Exam: Dry, Intact, Normal Color, Warm Discharge Plan - Follow Up Plan Condition: FAIR Disposition: HOME/ ROUTINE Instructions: Dialysis Diet , Heart Failure, Adult (DC), Hemodialysis (DC), End Stage Kidney Disease (DC), Renal Failure Diet (DC) Additional Instructions: discharge. Please follow up with him in 1-2 weeks. Patient strongly encouraged to CONTINUE TTS dialysis. Referrals: Rod Lord MD [Staff Provider] - 09/04/17 1:00 pm (Appointment made for you, spoke with DR Lord)
== END 2017-08-27 18:12 | disposition home or self-care (01) | DRG 566 ==
LOC: C.ER 19:29 → C.9E 22:32 → C.6T 23:41
PROVIDERS: ADMIT Internal Medicine; ATTEND Internal Medicine
PROC: 5A1D70Z Performance of Urinary Filtration, Intermittent, Less than 6 Hours Per Day (ICD-10-PCS; principal; 2017-08-14)
PROC: 0WPGX3Z Removal of Infusion Device from Peritoneal Cavity, External Approach (ICD-10-PCS; 2017-08-19)
DX: E87.5 Hyperkalemia (principal); I46.9 Cardiac arrest, cause unspecified; I13.2 Hypertensive heart and chronic kidney disease with heart failure and with stage 5 chronic kidney disease, or end stage renal disease; G93.41 Metabolic encephalopathy; T85.71XA Infection and inflammatory reaction due to peritoneal dialysis catheter, initial encounter; E10.21 Type 1 diabetes mellitus with diabetic nephropathy; N18.6 End stage renal disease; I50.9 Heart failure, unspecified; E10.22 Type 1 diabetes mellitus with diabetic chronic kidney disease; L03.311 Cellulitis of abdominal wall; B96.1 Klebsiella pneumoniae [K. pneumoniae] as the cause of diseases classified elsewhere; E78.00 Pure hypercholesterolemia, unspecified; Z91.15 Patient's noncompliance with renal dialysis; Z93.3 Colostomy status; Z91.19 Patient's noncompliance with other medical treatment and regimen; Z99.3 Dependence on wheelchair; Z99.2 Dependence on renal dialysis; Z89.512 Acquired absence of left leg below knee; Z89.511 Acquired absence of right leg below knee; Z87.891 Personal history of nicotine dependence; Z79.4 Long term (current) use of insulin; Y84.1 Kidney dialysis as the cause of abnormal reaction of the patient, or of later complication, without mention of misadventure at the time of the procedure; G83.9 Paralytic syndrome, unspecified

== ENCOUNTER 2017-08-31 14:27 | Observation (INO) | payer OTHER ==
[2017-08-31 14:28] VITALS: BMI 26.9
[2017-08-31 15:59] LABS: BASO # 0.1 K/uL (0.0-0.2); BASO % 1.7 % (0.0-2.0); EOS # 0.1 K/uL (0.0-0.7); EOS % 1.4 % (0.0-4.0); HEMOGLOBIN 10.7 g/dL (11.0-16.0); LYMPH # 2.7 K/uL (1.0-4.3); LYMPH % 33.4 % (20.0-40.0); MEAN CELL VOLUME 98.2 fL (81.0-99.0); MEAN CORPUSCULAR HEMOGLOBIN 32.2 pg (27.0-31.0); MEAN CORPUSCULAR HGB CONC 32.8 g/dL (33.0-37.0); MEAN PLATELET VOLUME 8.9 fL (7.2-11.7); MONO # 0.6 K/uL (0.0-0.8); MONO % 7.2 % (0.0-10.0); NEUT # 4.5 K/uL (1.8-7.0); NEUT % 56.3 % (50.0-75.0); NRBC % 0.2 % (0.0-2.0); RBC 3.31 Mil/uL (3.80-5.20); RED CELL DISTRIBUTION WIDTH 17.8 % (11.5-14.5)
--- NOTE | 2017-08-31 16:16 | RAD ---
PROCEDURE: CHEST RADIOGRAPH, 1 VIEW HISTORY: SOB COMPARISON: . Comparison made with chest radiograph dated 08/14/2017 FINDINGS: Re- demonstrated is in situ right subclavian dialysis catheter. LUNGS: Clear. PLEURA: No pneumothorax or pleural fluid seen. CARDIOVASCULAR: Normal. OSSEOUS STRUCTURES: No significant abnormalities. VISUALIZED UPPER ABDOMEN: Normal. OTHER FINDINGS: None. IMPRESSION: No active disease.
[2017-08-31 16:19] LABS: ALB/GLOB RATIO 1.1 (1.0-2.1); ALBUMIN 4.2 g/dL (3.5-5.0)
[2017-08-31] MEDS ORDERED: Morphine 4 MG/ML VIAL ONE (16:30)
--- NOTE | 2017-08-31 16:52 | C.PDOC ---
History Of Present Illness 51-year-old female, PMHx includes ESRD (HD /Sat/Sat), bilateral BKA presents to the emergency department with complaints of heavy vaginal bleed x2 days. Patient also reports phantom pain in B/L lower extremities. Patient also reports mild upper back pain. She denies nausea/vomiting. States she missed her dialysis today. No chest pain, shortness of breath. Time Seen by Provider: 08/31/17 14:46 Chief Complaint (Nursing): Female Genitourinary History Per: Patient History/Exam Limitations: no limitations Past Medical History Reviewed: Historical Data, Nursing Documentation, Vital Signs Vital Signs: Last Vital Signs Temp 97.8 F 08/31/17 16:59 Pulse 84 08/31/17 16:59 Resp 18 08/31/17 16:59 BP 150/80 08/31/17 16:59 Pulse Ox 94 L 08/31/17 17:08 - Medical History PMH: Anemia, Anxiety, Bronchitis, CHF, Diabetes, HTN, Hypercholesterolemia, End Stage Renal Disease (PD), Chronic Kidney Disease Denies: Pneumonia Surgical History: - [facility] Procedures (08/14/17) BYPASS RIGHT FEMORAL ARTERY TO POPLIT ART, OPEN APPROACH (10/26/16) CREATE CUTANPERITON FIST (12/30/14) DETACHMENT AT LEFT LOWER LEG, HIGH, OPEN APPROACH (05/03/17) DETACHMENT AT RIGHT FOOT, PARTIAL 1ST RAY, OPEN APPROACH (02/04/17) DETACHMENT AT RIGHT FOOT, PARTIAL 2ND RAY, OPEN APPROACH (02/04/17) DETACHMENT AT RIGHT FOOT, PARTIAL 3RD RAY, OPEN APPROACH (02/04/17) DETACHMENT AT RIGHT FOOT, PARTIAL 4TH RAY, OPEN APPROACH (02/04/17) DETACHMENT AT RIGHT FOOT, PARTIAL 5TH RAY, OPEN APPROACH (02/04/17) DETACHMENT AT RIGHT KNEE REGION, OPEN APPROACH (02/04/17) DILATION OF R COM ILIAC ART WITH INTRALUM DEV, PERC APPROACH (10/26/16) EXCISION OF RIGHT FOOT SKIN, EXTERNAL APPROACH (02/04/17) EXCISION OF SIGMOID COLON, OPEN APPROACH (02/04/17) FLUOROSCOPY OF LEFT HEART USING LOW OSMOLAR CONTRAST (10/26/16) FLUOROSCOPY OF MULT COR ART USING L OSM CONTRAST (10/26/16) HEMODIALYSIS (11/06/14) INSERTION OF INFUSION DEV INTO R SUBCLAV VEIN, PERC APPROACH (02/04/17) INSERTION OF INFUSION DEV INTO SUP VENA CAVA, PERC APPROACH (02/04/17) INSPECTION OF LOWER INTESTINAL TRACT, ENDO (07/24/17) IRRIGATION OF PERITON CAV USING DIALYSATE, PERC APPROACH (05/03/17) LAPAROSCOP LYSIS-PERITONEAL ADHES (12/30/14) MEASURE OF CARDIAC SAMPL & PRESSURE, L HEART, PERC APPROACH (10/26/16) PLAIN RADIOGRAPHY OF AORTA, BI LE ART USING L OSM CONTRAST (10/26/16) REMOVAL OF INFUSION DEVICE FROM GREAT VESSEL, PERC APPROACH (02/04/17) REMOVAL OF INFUSION DEVICE FROM PERITON CAV, STICKER HAND APPROACH (08/14/17) TRANSFUSE NONAUT RED BLOOD CELLS IN PERIPH VEIN, PERC (02/04/17) VASCULAR CATH IRRIGATION (01/14/15) VENOUS CATHETERIZATION FOR RENAL DIALYSIS (11/06/14) Family History: States: No Known Family Hx, Unknown Family Hx - Social History Hx Tobacco Use: Yes Hx Alcohol Use: No Hx Substance Use: No - Immunization History Hx Tetanus Toxoid Vaccination: Yes Hx Influenza Vaccination: No Hx Pneumococcal Vaccination: No Review Of Systems Constitutional: Negative for: Fever, Chills Cardiovascular: Negative for: Chest Pain, Palpitations Gastrointestinal: Negative for: Nausea, Vomiting, Abdominal Pain Genitourinary: Positive for: Vaginal Bleeding Musculoskeletal: Positive for: Back Pain (upper) Physical Exam - Physical Exam Appears: Non-toxic, No Acute Distress, Chronically Ill Skin: Warm, Dry, Pale, No Rash Head: Atraumatic, Normacephalic Eye(s): bilateral: PERRL, EOMI Nose: Normal Oral Mucosa: Moist Lips: Normal Appearing Neck: Normal ROM, Supple Chest: Symmetrical, No Deformity, No Tenderness Cardiovascular: Rhythm Regular, No Friction Rub, No Murmur Respiratory: Normal Breath Sounds, No Accessory Muscle Use Gastrointestinal/Abdominal: Soft, No Tenderness, No Guarding, No Rebound, No Hernia, Other (healed, midline surgical scar) Back: Normal Inspection, No CVA Tenderness Extremity: Other (BKA amputations bilateral lower extremities) Neurological/Psych: Oriented x3, Normal Speech, Normal Motor ED Course And Treatment - Laboratory Results Result Diagrams: 08/31/17 15:50 08/31/17 15:50 O2 Sat by Pulse Oximetry: 94 (RA) Pulse Ox Interpretation: Normal Medical Decision Making Medical Decision Making: Plan: * EKG * Labs * Morphine * Chest X-Ray * UA/HCG * Reassess and Disposition Morphine ordered and the patient refused at this time. The case was discussed with Dr. Lord who states he will admit the patient for missed dialysis. Disposition - Disposition Disposition: HOSPITALIZED Disposition Time: 16:30 Condition: STABLE - POA Present On Arrival: None - Clinical Impression Clinical Impression: ESRD needing dialysis - Scribe Statement The provider has reviewed the documentation as recorded by the Scribe (Ruiz Milner) All medical record entries made by the Scribe were at my direction and personally dictated by me. I have reviewed the chart and agree that the record accurately reflects my personal performance of the history, physical exam, medical decision making, and the department course for this patient. I have also personally directed, reviewed, and agree with the discharge instructions and disposition.
--- NOTE | 2017-08-31 18:01 | CP.PCM.HP ---
History of Present Illness - History of Present Illness History of Present Illness: Chief complaints: Vaginal bleeding History of present illness: 51-year-old female with a history of hypertension diabetes end-stage renal disease peripheral vascular disease peroneal medication bilaterally supposed to be getting the hemodialysis on Tuesdays, and Saturdays. Patient today did not go to the dialysis because of intermittent bleeding noted since last night. Patient was concerned about having heavy vaginal bleeding. Otherwise patient has no chest pain or shortness of breath. Past medical history: As noted above Surgical history: Patient has a hemodialysis catheter and the right internal jugular vein. Bilateral below-knee amputation. Patient has severe constipation, complicated with colitis, impending rupture, underwent near total colectomy, and colostomy. Allergies: No known drug allergy Personal history: Used to be a smoker in the past, also was using drugs in the past. Denies any alcohol Review of systems Currently having no headache, no chest pain or shortness of breath. Right hemodialysis catheter in the internal jugular vein. Colostomy. Below-knee limitation bilaterally. Vital signs reviewed No neck vein distention noted Chest good air entry bilaterally, no wheezing or rales noted CVS regular heart sound, no murmur noted Abdomen soft, nontender. 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 [employer] alert awake oriented -3, no functional neurological deficit Most Recent Lab Values WBC 8.0 K/uL (4.8-10.8) 08/31/17 15:50 RBC 3.31 Mil/uL (3.80-5.20) L 08/31/17 15:50 Hgb 10.7 g/dL (11.0-16.0) L 08/31/17 15:50 Hct 32.5 % (34.0-47.0) L 08/31/17 15:50 MCV 98.2 fL (81.0-99.0) 08/31/17 15:50 MCH 32.2 pg (27.0-31.0) H 08/31/17 15:50 MCHC 32.8 g/dL (33.0-37.0) L 08/31/17 15:50 RDW 17.8 % (11.5-14.5) H 08/31/17 15:50 Plt Count 225 K/uL (130-400) 08/31/17 15:50 MPV 8.9 fL (7.2-11.7) 08/31/17 15:50 Neut % (Auto) 56.3 % (50.0-75.0) 08/31/17 15:50 Lymph % (Auto) 33.4 % (20.0-40.0) 08/31/17 15:50 [place] % (Auto) 7.2 % (0.0-10.0) 08/31/17 15:50 Eos % (Auto) 1.4 % (0.0-4.0) 08/31/17 15:50 Baso % (Auto) 1.7 % (0.0-2.0) 08/31/17 15:50 Neut # (Auto) 4.5 K/uL (1.8-7.0) 08/31/17 15:50 Lymph # (Auto) 2.7 K/uL (1.0-4.3) 08/31/17 15:50 [place] # (Auto) 0.6 K/uL (0.0-0.8) 08/31/17 15:50 Eos # (Auto) 0.1 K/uL (0.0-0.7) 08/31/17 15:50 Baso # (Auto) 0.1 K/uL (0.0-0.2) 08/31/17 15:50 Sodium 136 mmol/L (132-148) 08/31/17 15:50 Potassium 4.9 mmol/L (3.6-5.2) 08/31/17 15:50 Chloride 99 mmol/L (98-107) 08/31/17 15:50 Carbon Dioxide 17 mmol/L (22-30) L 08/31/17 15:50 Anion Gap 25 (10-20) H 08/31/17 15:50 BUN 59 mg/dL (7-17) H 08/31/17 15:50 Creatinine 9.8 mg/dL (0.7-1.2) H* 08/31/17 15:50 Est GFR ( Amer) 5 08/31/17 15:50 Est GFR (Non-Af Amer) 4 08/31/17 15:50 Random Glucose 172 mg/dL (65-105) H 08/31/17 15:50 Calcium 10.0 mg/dl (8.6-10.4) 08/31/17 15:50 Total Bilirubin 0.6 mg/dL (0.2-1.3) 08/31/17 15:50 AST 27 U/L (14-36) 08/31/17 15:50 ALT 34 U/L (9-52) 08/31/17 15:50 Alkaline Phosphatase 76 U/L (38-126) 08/31/17 15:50 Total Protein 8.0 g/dL (6.3-8.3) 08/31/17 15:50 Albumin 4.2 g/dL (3.5-5.0) 08/31/17 15:50 Globulin 3.8 gm/dL (2.2-3.9) 08/31/17 15:50 Albumin/Globulin Ratio 1.1 (1.0-2.1) 08/31/17 15:50 Assessment and recommendation: 51-year-old female with a history of hypertension, ESRD, on hemodialysis, diabetes, hypertension, hypercholesterolemia, peripheral vascular disease, ischemic legs, status postsurgery. Status post a colostomy, and a colectomy admitted vaginal bleeding. patient missed hemodialysis. CBC, follow-up A renal consultation for dialysis. We will follow the patient Past Patient History - Infectious Disease Hx of Infectious Diseases: None - Past Medical History & Family History Past Medical History?: Yes - Past Social History Smoking Status: Former Smoker - CARDIAC Hx Congestive Heart Failure: Yes Hx Hypercholesterolemia: Yes Hx Hypertension: Yes - PULMONARY Hx Bronchitis: Yes Hx Pneumonia: No - NEUROLOGICAL Hx Neurological Disorder: No - HEENT Hx HEENT Problems: No - RENAL Hx Chronic Kidney Disease: Yes - ENDOCRINE/METABOLIC Hx Diabetes Mellitus Type 2: Yes - HEMATOLOGICAL/ONCOLOGICAL Hx Anemia: Yes - INTEGUMENTARY Hx Dermatological Problems: Yes Hx Eczema: Yes - MUSCULOSKELETAL/RHEUMATOLOGICAL Hx Falls: No (doesnt want to answer question) - GASTROINTESTINAL Hx Gastrointestinal Disorders: Yes Hx Colostomy: Yes - GENITOURINARY/GYNECOLOGICAL Hx Genitourinary Disorders: Yes (DX: RENAL FAILURE) - PSYCHIATRIC Hx Anxiety: Yes Hx Substance Use: No - SURGICAL HISTORY Hx Surgeries: Yes Hx Amputation: Yes (RBK) Hx Section: Yes Hx Eye Surgery: Yes (INSERT "GAS" BUBBLE BOTH EYES) Hx Tubal Ligation: Yes Hx Vascular Access Device: Yes (R SC HD cath) Other/Comment: I&D GROIN; 12/30/14 LAPAROSCOPIC INSERTION PERITONEAL DIALYSIS CATHETE over right chest. 01/14/15 REVISION DONE OF PERITIONEAL DIALYSIS CATH. 08/15/17 0230 - Patient refusing to give further information at this time - ANESTHESIA Hx Anesthesia: Yes Hx Anesthesia Reactions: No Hx Malignant Hyperthermia: No Meds Allergies/Adverse Reactions: Allergies Allergy/AdvReac Type Severity Reaction Status Date / Time shrimp Allergy Severe RASH Verified 08/14/17 19:34 Results - Vital Signs Recent Vital Signs: Last Vital Signs Temp 97.8 F 08/31/17 16:59 Pulse 84 08/31/17 16:59 Resp 18 08/31/17 16:59 BP 150/80 08/31/17 16:59 Pulse Ox 94 L 08/31/17 17:08 - Labs Result Diagrams: 08/31/17 15:50 08/31/17 15:50 Labs: Laboratory Results - last 24 hr 08/31/17 08/31/17 15:50 15:50 WBC 8.0 RBC 3.31 L Hgb 10.7 L Hct 32.5 L MCV 98.2 MCH 32.2 H MCHC 32.8 L RDW 17.8 H Plt Count 225 MPV 8.9 Neut % (Auto) 56.3 Lymph % (Auto) 33.4 [place] % (Auto) 7.2 Eos % (Auto) 1.4 Baso % (Auto) 1.7 Neut # (Auto) 4.5 Lymph # (Auto) 2.7 [place]ender # (Auto) 0.6 Eos # (Auto) 0.1 Baso # (Auto) 0.1 Sodium 136 Potassium 4.9 Chloride 99 Carbon Dioxide 17 L Anion Gap 25 H BUN 59 H Creatinine 9.8 H* Est GFR ( Amer) 5 Est GFR (Non-Af Amer) 4 Random Glucose 172 H Calcium 10.0 Total Bilirubin 0.6 AST 27 ALT 34 Alkaline Phosphatase 76 Total Protein 8.0 Albumin 4.2 Globulin 3.8 Albumin/Globulin Ratio 1.1
[2017-08-31] MEDS: (Novolin R) Insulin Human Regular 100 units/ml vial SC SCH (21:49)
[2017-09-01] MEDS: (Novolin R) Insulin Human Regular 100 units/ml vial SC SCH ×6 (08:23→21:32)
[2017-09-01] MEDS: Multivitamin Vitamin B Complex (Nephro-Vite) Tab PO SCH (10:38)
[2017-09-01] MEDS ORDERED: (Novolin R) Insulin Human Regular 100 units/ml vial SC SCH (14:11)
[2017-09-01] MEDS ORDERED: HYDROmorphone 1 mg/ml ISec SC STA (21:10)
[2017-09-01] MEDS ORDERED: HYDROmorphone 0.5 mg/0.5 ml ISec SC STA (21:23)
[2017-09-02] MEDS: (Novolin R) Insulin Human Regular 100 units/ml vial SC SCH ×4 (08:34→21:36)
--- NOTE | 2017-09-02 09:17 | CP.PCM.DIS ---
Provider - Provider Date of Admission: 08/31/17 16:23 Attending physician: Rod Lord MD Time Spent in preparation of Discharge (in minutes): 55 Hospital Course - Lab Results Lab Results: Most Recent Lab Values WBC 8.0 K/uL (4.8-10.8) 08/31/17 15:50 RBC 3.31 Mil/uL (3.80-5.20) L 08/31/17 15:50 Hgb 10.7 g/dL (11.0-16.0) L 08/31/17 15:50 Hct 32.5 % (34.0-47.0) L 08/31/17 15:50 MCV 98.2 fL (81.0-99.0) 08/31/17 15:50 MCH 32.2 pg (27.0-31.0) H 08/31/17 15:50 MCHC 32.8 g/dL (33.0-37.0) L 08/31/17 15:50 RDW 17.8 % (11.5-14.5) H 08/31/17 15:50 Plt Count 225 K/uL (130-400) 08/31/17 15:50 MPV 8.9 fL (7.2-11.7) 08/31/17 15:50 Neut % (Auto) 56.3 % (50.0-75.0) 08/31/17 15:50 Lymph % (Auto) 33.4 % (20.0-40.0) 08/31/17 15:50 [place] % (Auto) 7.2 % (0.0-10.0) 08/31/17 15:50 Eos % (Auto) 1.4 % (0.0-4.0) 08/31/17 15:50 Baso % (Auto) 1.7 % (0.0-2.0) 08/31/17 15:50 Neut # (Auto) 4.5 K/uL (1.8-7.0) 08/31/17 15:50 Lymph # (Auto) 2.7 K/uL (1.0-4.3) 08/31/17 15:50 [place] # (Auto) 0.6 K/uL (0.0-0.8) 08/31/17 15:50 Eos # (Auto) 0.1 K/uL (0.0-0.7) 08/31/17 15:50 Baso # (Auto) 0.1 K/uL (0.0-0.2) 08/31/17 15:50 Sodium 136 mmol/L (132-148) 08/31/17 15:50 Potassium 4.9 mmol/L (3.6-5.2) 08/31/17 15:50 Chloride 99 mmol/L (98-107) 08/31/17 15:50 Carbon Dioxide 17 mmol/L (22-30) L 08/31/17 15:50 Anion Gap 25 (10-20) H 08/31/17 15:50 BUN 59 mg/dL (7-17) H 08/31/17 15:50 Creatinine 9.8 mg/dL (0.7-1.2) H* 08/31/17 15:50 Est GFR ( Amer) 5 08/31/17 15:50 Est GFR (Non-Af Amer) 4 08/31/17 15:50 POC Glucose (mg/dL) 246 mg/dL (65-110) H 09/02/17 08:22 Random Glucose 172 mg/dL (65-105) H 08/31/17 15:50 Calcium 10.0 mg/dl (8.6-10.4) 08/31/17 15:50 Total Bilirubin 0.6 mg/dL (0.2-1.3) 08/31/17 15:50 AST 27 U/L (14-36) 08/31/17 15:50 ALT 34 U/L (9-52) 08/31/17 15:50 Alkaline Phosphatase 76 U/L (38-126) 08/31/17 15:50 Total Protein 8.0 g/dL (6.3-8.3) 08/31/17 15:50 Albumin 4.2 g/dL (3.5-5.0) 08/31/17 15:50 Globulin 3.8 gm/dL (2.2-3.9) 08/31/17 15:50 Albumin/Globulin Ratio 1.1 (1.0-2.1) 08/31/17 15:50 - Hospital Course Hospital Course: Upon Admission: Chief complaints: Vaginal bleeding History of present illness: 51-year-old female with a history of hypertension diabetes end-stage renal disease peripheral vascular disease peroneal medication bilaterally supposed to be getting the hemodialysis on Tuesdays, and Saturdays. Patient today did not go to the dialysis because of intermittent bleeding noted since last night. Patient was concerned about having heavy vaginal bleeding. Otherwise patient has no chest pain or shortness of breath. Past medical history: As noted above Surgical history: Patient has a hemodialysis catheter and the right internal jugular vein. Bilateral below-knee amputation. Patient has severe constipation, complicated with colitis, impending rupture, underwent near total colectomy, and colostomy. Allergies: No known drug allergy Personal history: Used to be a smoker in the past, also was using drugs in the past. Denies any alcohol Review of systems Currently having no headache, no chest pain or shortness of breath. Right hemodialysis catheter in the internal jugular vein. Colostomy. Below-knee limitation bilaterally. Throughout Hospital Course: Patient admitted for due hyperkalemia, vaginal bleeding. Patient received dialysis. Vaginal bleeding stopped. Instructed patient to continue with dialysis TTS. Discharge Exam - Head Exam Head Exam: NORMAL INSPECTION, NORMOCEPHALIC - Eye Exam Eye Exam: EOMI, Normal appearance, PERRL Pupil Exam: NORMAL ACCOMODATION - ENT Exam ENT Exam: Normal Exam - Respiratory Exam Respiratory Exam: Clear to PA & Lateral, NORMAL BREATHING PATTERN - Cardiovascular Exam Cardiovascular Exam: REGULAR RHYTHM, RRR - GI/Abdominal Exam GI & Abdominal Exam: Normal Bowel Sounds, Soft. absent: Distended - Extremities Exam Extremities exam: normal inspection, pedal pulses present - Neurological Exam Neurological exam: Alert, Oriented x3 - Psychiatric Exam Psychiatric exam: Normal Affect, Normal Mood - Skin Skin Exam: Dry, Intact, Normal Color, Warm Discharge Plan - Follow Up Plan Condition: STABLE Disposition: HOME/ ROUTINE Instructions: Renal Failure Diet (DC)
[2017-09-02] MEDS: Multivitamin Vitamin B Complex (Nephro-Vite) Tab PO SCH (10:19)
--- NOTE | 2017-09-02 12:47 | CP.PCM.CON ---
History of Present Illness - History of Present Illness History of Present Illness: Chief complaints: Vaginal bleeding History of present illness: 51-year-old female with a history of hypertension diabetes end-stage renal disease peripheral vascular disease previous peritoneal dialysis s/p BKA bilaterally supposed to be getting the hemodialysis on Tuesdays, and Saturdays. Patient today did not go to the dialysis because of intermittent bleeding Patient was concerned about having heavy vaginal bleeding. Otherwise patient has no chest pain or shortness of breath. Past medical history: As noted above Surgical history: Patient has a hemodialysis catheter and the right internal jugular vein. Bilateral below-knee amputation. Patient has severe constipation, complicated with colitis, impending rupture, underwent near total colectomy, and colostomy. PD cath placement and removal Allergies: No known drug allergy Personal history: Used to be a smoker in the past, also was using drugs in the past. Denies any alcohol Review of systems Currently having no headache, no chest pain or shortness of breath. Right hemodialysis catheter in the internal jugular vein. Colostomy. Below-knee limitation bilaterally. Review of Systems - Constitutional Constitutional: Fatigue, Weakness - EENT Eyes: absent: As Per HPI, Blind Spots, Blurred Vision, Change in Vision, Decreased Night Vision, Diplopia, Discharge, Dry Eye, Exophthalmos, Floaters, Irritation, Itchy Eyes, Loss of Peripheral Vision, Pain, Photophobia, Requires Corrective Lenses, Sees Flashes, Spots in Vision, Tunnel Vision, Other Visual Disturbances, Loss of Vision, Other Ears: absent: As Per HPI, Decreased Hearing, Ear Discharge, Ear Pain, Tinnitus, Abnormal Hearing, Disequilibrium, Dizziness, Other Nose/Mouth/Throat: absent: As Per HPI, Epistaxis, Nasal Congestion, Nasal Discharge, Nasal Obstruction, Nasal Trauma, Nose Pain, Post Nasal Drip, Sinus Pain, Sinus Pressure, Bleeding Gums, Change in Voice, Dental Pain, Dry Mouth, Dysphagia, Halitosis, Hoarsness, Lip Swelling, Mouth Lesions, Mouth Pain, Odynophagia, Sore Throat, Throat Swelling, Tongue Swelling, Facial Pain, Neck Pain, Neck Mass, Other - Cardiovascular Cardiovascular: Dyspnea on Exertion, Lightheadedness - Respiratory Respiratory: Cough - Gastrointestinal Gastrointestinal: Early Satiety, Nausea - Genitourinary Genitourinary: As Per HPI - Musculoskeletal Musculoskeletal: Muscle Cramps, Muscle Weakness - Neurological Neurological: Weakness Past Patient History - Infectious Disease Hx of Infectious Diseases: None - Past Medical History & Family History Past Medical History?: Yes - Past Social History Smoking Status: Former Smoker Chewing Tobacco Use: No Cigar Use: No Alcohol: None Drugs: Denies Home Situation {Lives}: Jail - CARDIAC Hx Congestive Heart Failure: Yes Hx Hypercholesterolemia: Yes Hx Hypertension: Yes - PULMONARY Hx Bronchitis: Yes Hx Pneumonia: No - NEUROLOGICAL Hx Neurological Disorder: No - HEENT Hx HEENT Problems: No - RENAL Hx Chronic Kidney Disease: Yes - ENDOCRINE/METABOLIC Hx Diabetes Mellitus Type 2: Yes - HEMATOLOGICAL/ONCOLOGICAL Hx Anemia: Yes - INTEGUMENTARY Hx Dermatological Problems: Yes Hx Eczema: Yes - MUSCULOSKELETAL/RHEUMATOLOGICAL Hx Falls: No - GASTROINTESTINAL Hx Gastrointestinal Disorders: Yes Hx Colostomy: Yes - GENITOURINARY/GYNECOLOGICAL Hx Genitourinary Disorders: Yes (DX: RENAL FAILURE) - PSYCHIATRIC Hx Anxiety: Yes Hx Substance Use: No - SURGICAL HISTORY Hx Surgeries: Yes Hx Amputation: Yes (RBK) Hx Section: Yes Hx Eye Surgery: Yes (INSERT "GAS" BUBBLE BOTH EYES) Hx Tubal Ligation: Yes Hx Vascular Access Device: Yes (R SC HD cath) Other/Comment: I&D GROIN; 12/30/14 LAPAROSCOPIC INSERTION PERITONEAL DIALYSIS CATHETE over right chest. 01/14/15 REVISION DONE OF PERITIONEAL DIALYSIS CATH. 08/15/17 0230 - Patient refusing to give further information at this time - ANESTHESIA Hx Anesthesia: Yes Hx Anesthesia Reactions: No Hx Malignant Hyperthermia: No Meds Allergies/Adverse Reactions: Allergies Allergy/AdvReac Type Severity Reaction Status Date / Time shrimp Allergy Severe RASH Verified 08/14/17 19:34 - Medications Medications: Current Medications Amlodipine Besylate (Norvasc) 5 mg PO DAILY [facility] Last Admin: 09/02/17 10:19 Dose: 5 mg Aspirin (Ecotrin) 81 mg PO DAILY [facility] Last Admin: 09/02/17 10:18 Dose: 81 mg Carvedilol (Coreg) 25 mg PO BID [facility] Last Admin: 09/02/17 10:18 Dose: 25 mg Clopidogrel Bisulfate (Plavix) 75 mg PO DAILY [facility] Last Admin: 09/02/17 10:19 Dose: 75 mg Famotidine (Pepcid) 20 mg PO DAILY [facility] Last Admin: 09/02/17 10:19 Dose: 20 mg Gabapentin (Neurontin) 100 mg PO QPM [facility] Last Admin: 09/01/17 17:26 Dose: 100 mg Heparin Sodium (Porcine) (Heparin) 5,000 units SC Q12 [facility] Last Admin: 09/02/17 10:21 Dose: Not Given Insulin Human Regular (Novolin R) 0 unit SC ACHS [facility] PRN Reason: Protocol Last Admin: 09/02/17 12:32 Dose: Not Given Rosuvastatin Calcium (Crestor) 10 mg PO HS [facility] Last Admin: 09/01/17 21:40 Dose: 10 mg Vitamin B Complex/Vit C/Folic Acid (Nephro-Cony) 1 tab PO DAILY [facility] Last Admin: 09/02/17 10:19 Dose: 1 tab Physical Exam - Head Exam Head Exam: ATRAUMATIC, NORMAL INSPECTION - Eye Exam Eye Exam: EOMI, Normal appearance - Neck Exam Neck exam: Positive for: Normal Inspection. Negative for: Tenderness - Respiratory Exam Respiratory Exam: Clear to Auscultation Bilateral, NORMAL BREATHING PATTERN - Cardiovascular Exam Cardiovascular Exam: REGULAR RHYTHM, +S1 - GI/Abdominal Exam GI & Abdominal Exam: Soft. absent: Tenderness - Extremities Exam Extremities exam: Positive for: calf tenderness. Negative for: tenderness - Neurological Exam Neurological exam: Altered - Skin Skin Exam: Dry, Warm Results - Vital Signs Recent Vital Signs: Last Vital Signs Temp 97.5 F L 09/02/17 08:17 Pulse 83 09/02/17 08:17 Resp 20 09/02/17 08:17 BP 171/84 H 09/02/17 10:18 Pulse Ox 97 09/02/17 08:17 - Labs Result Diagrams: 08/31/17 15:50 08/31/17 15:50 Labs: Laboratory Results - last 24 hr 09/01/17 09/01/17 09/02/17 16:54 21:09 08:22 POC Glucose (mg/dL) 256 H 340 H 246 H 09/02/17 11:30 POC Glucose (mg/dL) 196 H Assessment & Plan (1) Vaginal bleeding Status: Acute (2) ESRD needing dialysis Status: Acute - Assessment and Plan (Free Text) Plan: Dialysis TTS- arranged Possible discharge if vaginal bleeding controlled- as per medical team
--- NOTE | 2017-09-02 21:08 | CARD ---
APPROVED REPORT EKG Measurement Heart [id number] <Conclusion> Normal sinus rhythm Left axis deviation Possible Anterior infarct, age undetermined Abnormal ECG
[2017-09-03] MEDS: (Novolin R) Insulin Human Regular 100 units/ml vial SC SCH ×2 (08:05→16:30)
--- NOTE | 2017-09-03 10:01 | CP.PCM.PN ---
Subjective - Date & Time of Evaluation Date of Evaluation: 09/03/17 Time of Evaluation: 09:59 - Subjective Subjective: seen and examined on hd low bp in 70-80 systolics, asymptomatic. estimated uf 500cc no fevers chills sob cp dizziness nausea vomiting diarrhea rash cough Objective - Vital Signs/Intake and Output Vital Signs (last 24 hours): Temp Pulse Resp BP Pulse Ox 97.5 F L 83 20 106/64 95 09/03/17 07:29 09/03/17 07:29 09/03/17 07:29 09/03/17 07:29 09/03/17 07:29 Intake and Output: 09/03/17 09/03/17 06:59 18:59 Intake Total 150 Output Total 1000 Balance -850 - Medications Medications: Current Medications Amlodipine Besylate (Norvasc) 5 mg PO DAILY [facility] Last Admin: 09/02/17 10:19 Dose: 5 mg Aspirin (Ecotrin) 81 mg PO DAILY [facility] Last Admin: 09/02/17 10:18 Dose: 81 mg Carvedilol (Coreg) 25 mg PO BID [facility] Last Admin: 09/02/17 17:29 Dose: 25 mg Clopidogrel Bisulfate (Plavix) 75 mg PO DAILY [facility] Last Admin: 09/02/17 10:19 Dose: 75 mg Famotidine (Pepcid) 20 mg PO DAILY [facility] Last Admin: 09/02/17 10:19 Dose: 20 mg Gabapentin (Neurontin) 100 mg PO QPM [facility] Last Admin: 09/02/17 17:30 Dose: 100 mg Heparin Sodium (Porcine) (Heparin) 5,000 units SC Q12 [facility] Last Admin: 09/02/17 21:38 Dose: Not Given Insulin Human Regular (Novolin R) 0 unit SC ACHS [facility] PRN Reason: Protocol Last Admin: 09/03/17 08:05 Dose: Not Given Rosuvastatin Calcium (Crestor) 10 mg PO HS [facility] Last Admin: 09/02/17 21:36 Dose: 10 mg Vitamin B Complex/Vit C/Folic Acid (Nephro-Cony) 1 tab PO DAILY [facility] Last Admin: 09/02/17 10:19 Dose: 1 tab - Labs Labs: 08/31/17 15:50 08/31/17 15:50 - Constitutional Appears: No Acute Distress, Older Than Stated Age, Chronically Ill - Head Exam Head Exam: NORMAL INSPECTION - Eye Exam Eye Exam: Normal appearance, PERRL - ENT Exam ENT Exam: Mucous Membranes Moist, Normal Exam - Neck Exam Neck Exam: Full ROM, Normal Inspection - Respiratory Exam Respiratory Exam: Decreased Breath Sounds, Clear to Ausculation Bilateral - Cardiovascular Exam Cardiovascular Exam: REGULAR RHYTHM, RRR - GI/Abdominal Exam GI & Abdominal Exam: Distended, Soft Additional comments: colostomy - Extremities Exam Additional comments: b/l bka. no edema - Neurological Exam Neurological Exam: Alert, Awake - Psychiatric Exam Psychiatric exam: Normal Affect, Normal Mood - Skin Skin Exam: Normal Color, Warm Assessment and Plan (1) ESRD needing dialysis Status: Acute (2) Vaginal bleeding Status: Acute (3) Anemia Status: Acute (4) HTN (hypertension) Status: Acute - Assessment and Plan (Free Text) Assessment: maintain hd tts dc norvasc hgb at goal
[2017-09-03] MEDS: Multivitamin Vitamin B Complex (Nephro-Vite) Tab PO SCH (10:22)
[2017-09-03] MEDS ORDERED: Albumin Human 25% (12.5 gm/50 ml) IV STA (10:41)
[2017-09-03 16:21] VITALS: BP 102/67; PULSE 82; RESP 20; TEMP 98.3; O2SAT 95
== END 2017-09-03 16:50 | disposition home or self-care (01) ==
LOC: C.ER 14:27 → C.3T 16:23
PROVIDERS: ADMIT Internal Medicine; ATTEND Internal Medicine
DX: E87.5 Hyperkalemia (principal); I13.2 Hypertensive heart and chronic kidney disease with heart failure and with stage 5 chronic kidney disease, or end stage renal disease; N18.6 End stage renal disease; I50.9 Heart failure, unspecified; N93.9 Abnormal uterine and vaginal bleeding, unspecified; E11.22 Type 2 diabetes mellitus with diabetic chronic kidney disease; Z89.511 Acquired absence of right leg below knee; Z89.512 Acquired absence of left leg below knee; Z99.2 Dependence on renal dialysis; Z93.3 Colostomy status; G54.6 Phantom limb syndrome with pain; Z87.891 Personal history of nicotine dependence; E11.51 Type 2 diabetes mellitus with diabetic peripheral angiopathy without gangrene; E78.00 Pure hypercholesterolemia, unspecified
CPT/HCPCS: 71045; 80053; 82948; 85025; 93005; 96365; 96372; 99284; G0257; G0378; J1170; J1644; P9047

== ENCOUNTER 2017-09-03 22:10 | Emergency (ER) | payer OTHER ==
[2017-09-03 22:11] VITALS: BMI 26.9
[2017-09-03 22:32] VITALS: TEMP 98.1; O2SAT 96
[2017-09-03] MEDS ORDERED: (Novolin R) Insulin Human Regular 100 units/ml vial IV STA (22:55)
--- NOTE | 2017-09-03 22:55 | C.PDOC ---
History Of Present Illness 51 year old female brought in by ambulance for evaluation of generalized weakness. Patient arrived home from dialysis at 7pm this evening after being escorted out from center by security due to aggressive behavior. She then called EMS due to low blood pressure at home (systolic BP of 100) and lethargy. Patient complaints that she feels tired after dialysis sessions. Denies chest pain, SOB, abdominal pain, weakness, headache, or visual changes. Time Seen by Provider: 09/03/17 22:52 Chief Complaint (Nursing): Weakness/Neurological Deficit History Per: Patient History/Exam Limitations: no limitations Onset/Duration Of Symptoms: Hrs Current Symptoms Are (Timing): Still Present Past Medical History Reviewed: Historical Data, Nursing Documentation, Vital Signs Vital Signs: Last Vital Signs Temp 98.1 F 09/03/17 22:28 Pulse 83 09/03/17 22:28 Resp 14 09/03/17 22:28 BP 138/54 L 09/03/17 22:28 Pulse Ox 96 09/03/17 23:12 - Medical History PMH: Anemia, Anxiety, Bronchitis, CHF, Diabetes, HTN, Hypercholesterolemia, End Stage Renal Disease (PD), Chronic Kidney Disease Denies: Pneumonia Surgical History: - [facility] Procedures (08/14/17) BYPASS RIGHT FEMORAL ARTERY TO POPLIT ART, OPEN APPROACH (10/26/16) CREATE CUTANPERITON FIST (12/30/14) DETACHMENT AT LEFT LOWER LEG, HIGH, OPEN APPROACH (05/03/17) DETACHMENT AT RIGHT FOOT, PARTIAL 1ST RAY, OPEN APPROACH (02/04/17) DETACHMENT AT RIGHT FOOT, PARTIAL 2ND RAY, OPEN APPROACH (02/04/17) DETACHMENT AT RIGHT FOOT, PARTIAL 3RD RAY, OPEN APPROACH (02/04/17) DETACHMENT AT RIGHT FOOT, PARTIAL 4TH RAY, OPEN APPROACH (02/04/17) DETACHMENT AT RIGHT FOOT, PARTIAL 5TH RAY, OPEN APPROACH (02/04/17) DETACHMENT AT RIGHT KNEE REGION, OPEN APPROACH (02/04/17) DILATION OF R COM ILIAC ART WITH INTRALUM DEV, PERC APPROACH (10/26/16) EXCISION OF RIGHT FOOT SKIN, EXTERNAL APPROACH (02/04/17) EXCISION OF SIGMOID COLON, OPEN APPROACH (02/04/17) FLUOROSCOPY OF LEFT HEART USING LOW OSMOLAR CONTRAST (10/26/16) FLUOROSCOPY OF MULT COR ART USING L OSM CONTRAST (10/26/16) HEMODIALYSIS (11/06/14) INSERTION OF INFUSION DEV INTO R SUBCLAV VEIN, PERC APPROACH (02/04/17) INSERTION OF INFUSION DEV INTO SUP VENA CAVA, PERC APPROACH (02/04/17) INSPECTION OF LOWER INTESTINAL TRACT, ENDO (07/24/17) IRRIGATION OF PERITON CAV USING DIALYSATE, PERC APPROACH (05/03/17) LAPAROSCOP LYSIS-PERITONEAL ADHES (12/30/14) MEASURE OF CARDIAC SAMPL & PRESSURE, L HEART, PERC APPROACH (10/26/16) PLAIN RADIOGRAPHY OF AORTA, BI LE ART USING L OSM CONTRAST (10/26/16) REMOVAL OF INFUSION DEVICE FROM GREAT VESSEL, PERC APPROACH (02/04/17) REMOVAL OF INFUSION DEVICE FROM PERITON CAV, ACCOUNTING RECONCILIATION CLERK APPROACH (08/14/17) TRANSFUSE NONAUT RED BLOOD CELLS IN PERIPH VEIN, PERC (02/04/17) VASCULAR CATH IRRIGATION (01/14/15) VENOUS CATHETERIZATION FOR RENAL DIALYSIS (11/06/14) Family History: States: Unknown Family Hx - Social History Hx Tobacco Use: Yes Hx Alcohol Use: No Hx Substance Use: No - Immunization History Hx Tetanus Toxoid Vaccination: Yes Hx Influenza Vaccination: No Hx Pneumococcal Vaccination: No Review Of Systems Except As Marked, All Systems Reviewed And Found Negative. Constitutional: Negative for: Fever, Chills Cardiovascular: Negative for: Chest Pain Respiratory: Negative for: Shortness of Breath Gastrointestinal: Negative for: Vomiting, Abdominal Pain Neurological: Positive for: Other (Lethargy). Negative for: Weakness, Headache Physical Exam - Physical Exam Appears: No Acute Distress, Chronically Ill, Other (Irritated) Skin: Warm, Dry, No Rash Head: Atraumatic, Normacephalic Eye(s): bilateral: Normal Inspection, PERRL, EOMI Nose: Normal Oral Mucosa: Moist Neck: Normal ROM, Supple Chest: Symmetrical, Other (Catheter in place at right upper chest) Cardiovascular: Rhythm Regular, No Murmur Respiratory: Normal Breath Sounds, No Rales, No Rhonchi, No Wheezing Gastrointestinal/Abdominal: Soft, No Tenderness, Other (obese abdomen) Extremity: Bilateral: Normal Color And Temperature, Other (below knee amputation ) Neurological/Psych: Oriented x3, Normal Speech ED Course And Treatment O2 Sat by Pulse Oximetry: 96 (RA) Pulse Ox Interpretation: Normal Medical Decision Making Medical Decision Making: Impression: pt agitated and argumentative @ HD today, escorted from the dialysis Center by Security. Pt refuses to have blood work done. Finger stick is 416. Pt refusing insulin. Also refusing chest x-ray. hypotensive and lethargic after HD today @ home. SBP 100 on home monitor. drank water and came to ED 4 hours later by EMS with normal BP and normal mentation EMS explained most HD pt's similar s/s s/p HD In ED answered many questions (to best of our abilities) regarding Dialysis Center procedures and dialysis. pt refused blood tests and CXR, UA with informed consent. Disposition Doctor Will See Patient In The: Office Counseled Patient/Family Regarding: Studies Performed, Diagnosis - Disposition Referrals: Rod Lord MD [Staff Provider] - Disposition: HOME/ ROUTINE Disposition Time: 23:11 Condition: GOOD Additional Instructions: remember many dialysis pts feel lethargic and have transiently lower blood pressures after dialysis. Rest and relax until your body normalizes. Follow-up w Dr. Lord- call for appointment Discuss your dialysis procedures and practices with your Chip Separator. Instructions: Dialysis Diet Forms: [facility] (Chadian) - POA Present On Arrival: None - Clinical Impression Clinical Impression: Dialysis patient, Anxiety - Scribe Statement The provider has reviewed the documentation as recorded by the Scribe (Tiffany Emanuel) Provider Attestation: All medical record entries made by the Scribe were at my direction and personally dictated by me. I have reviewed the chart and agree that the record accurately reflects my personal performance of the history, physical exam, medical decision making, and the department course for this patient. I have also personally directed, reviewed, and agree with the discharge instructions and disposition.
[2017-09-03] MEDS ORDERED: (Novolin R) Insulin Human Regular 100 units/ml vial ONE (23:47)
[2017-09-03] MEDS ORDERED: (Novolin R) Insulin Human Regular 100 units/ml vial SC ONE (23:48)
[2017-09-04 01:20] VITALS: BP 136/50; PULSE 82; RESP 18
--- NOTE | 2017-09-06 10:17 | CARD ---
APPROVED REPORT EKG Measurement Heart [id number] [id number] <Conclusion> Normal sinus rhythm Possible Left atrial enlargement Left axis deviation Possible Anterior infarct, age undetermined Abnormal ECG
== END 2017-09-04 01:20 | disposition home or self-care (01) ==
LOC: C.ER 22:10
DX: F41.9 Anxiety disorder, unspecified (principal); E11.22 Type 2 diabetes mellitus with diabetic chronic kidney disease; I12.0 Hypertensive chronic kidney disease with stage 5 chronic kidney disease or end stage renal disease; N18.6 End stage renal disease; Z99.2 Dependence on renal dialysis

== ENCOUNTER 2017-09-05 17:40 | Emergency (ER) | payer OTHER ==
[2017-09-05 17:40] VITALS: BMI 26.9
--- NOTE | 2017-09-05 19:10 | C.PDOC ---
History Of Present Illness Pt had hemodialysis today. She requested to be taken to the ER because she states that her blood pressure goes up and down on dialysis days. Time Seen by Provider: 09/05/17 18:11 Chief Complaint (Nursing): Medical Clearance History Per: Patient, EMS Onset/Duration Of Symptoms: Hrs (today) Current Symptoms Are (Timing): Still Present Severity: Mild Context: during/after dialysis Additional History Per: Prior Records Past Medical History Reviewed: Historical Data, Nursing Documentation, Vital Signs Vital Signs: Last Vital Signs Temp 97.5 F L 09/05/17 18:04 Pulse 111 H 09/05/17 19:12 Resp 18 09/05/17 19:12 BP 120/64 09/05/17 19:12 Pulse Ox 100 09/05/17 19:12 - Medical History PMH: Anemia, Anxiety, Bronchitis, CHF, Diabetes, HTN, Hypercholesterolemia, End Stage Renal Disease (on hemodialysis Tue/Thur/Sat.), Chronic Kidney Disease Surgical History: Other Surgeries: b/l BKA. Colostomy. - [facility] Procedures (08/14/17) BYPASS RIGHT FEMORAL ARTERY TO POPLIT ART, OPEN APPROACH (10/26/16) CREATE CUTANPERITON FIST (12/30/14) DETACHMENT AT LEFT LOWER LEG, HIGH, OPEN APPROACH (05/03/17) DETACHMENT AT RIGHT FOOT, PARTIAL 1ST RAY, OPEN APPROACH (02/04/17) DETACHMENT AT RIGHT FOOT, PARTIAL 2ND RAY, OPEN APPROACH (02/04/17) DETACHMENT AT RIGHT FOOT, PARTIAL 3RD RAY, OPEN APPROACH (02/04/17) DETACHMENT AT RIGHT FOOT, PARTIAL 4TH RAY, OPEN APPROACH (02/04/17) DETACHMENT AT RIGHT FOOT, PARTIAL 5TH RAY, OPEN APPROACH (02/04/17) DETACHMENT AT RIGHT KNEE REGION, OPEN APPROACH (02/04/17) DILATION OF R COM ILIAC ART WITH INTRALUM DEV, PERC APPROACH (10/26/16) EXCISION OF RIGHT FOOT SKIN, EXTERNAL APPROACH (02/04/17) EXCISION OF SIGMOID COLON, OPEN APPROACH (02/04/17) FLUOROSCOPY OF LEFT HEART USING LOW OSMOLAR CONTRAST (10/26/16) FLUOROSCOPY OF MULT COR ART USING L OSM CONTRAST (10/26/16) HEMODIALYSIS (11/06/14) INSERTION OF INFUSION DEV INTO R SUBCLAV VEIN, PERC APPROACH (02/04/17) INSERTION OF INFUSION DEV INTO SUP VENA CAVA, PERC APPROACH (02/04/17) INSPECTION OF LOWER INTESTINAL TRACT, ENDO (07/24/17) IRRIGATION OF PERITON CAV USING DIALYSATE, PERC APPROACH (05/03/17) LAPAROSCOP LYSIS-PERITONEAL ADHES (12/30/14) MEASURE OF CARDIAC SAMPL & PRESSURE, L HEART, PERC APPROACH (10/26/16) PLAIN RADIOGRAPHY OF AORTA, BI LE ART USING L OSM CONTRAST (10/26/16) REMOVAL OF INFUSION DEVICE FROM GREAT VESSEL, PERC APPROACH (02/04/17) REMOVAL OF INFUSION DEVICE FROM PERITON CAV, PRICING ASSOCIATE APPROACH (08/14/17) TRANSFUSE NONAUT RED BLOOD CELLS IN PERIPH VEIN, PERC (02/04/17) VASCULAR CATH IRRIGATION (01/14/15) VENOUS CATHETERIZATION FOR RENAL DIALYSIS (11/06/14) Family History: States: Unknown Family Hx - Social History Hx Tobacco Use: Yes Hx Alcohol Use: No Hx Substance Use: No - Immunization History Hx Tetanus Toxoid Vaccination: Yes Hx Influenza Vaccination: No Hx Pneumococcal Vaccination: No Review Of Systems Except As Marked, All Systems Reviewed And Found Negative. Constitutional: Negative for: Fever Cardiovascular: Negative for: Chest Pain Respiratory: Negative for: Shortness of Breath Gastrointestinal: Negative for: Vomiting, Abdominal Pain Neurological: Negative for: Weakness, Numbness, Dizziness Physical Exam - Physical Exam Appears: Non-toxic, No Acute Distress, Chronically Ill Skin: Normal Color, Warm, Dry Head: Atraumatic, Normacephalic Eye(s): bilateral: PERRL, EOMI Neck: Normal ROM, Supple Chest: Other (Dialysis catheter in right chest. No signs of infection.) Cardiovascular: Rhythm Regular Respiratory: Normal Breath Sounds, No Accessory Muscle Use Gastrointestinal/Abdominal: Soft, No Tenderness, Other (Colostomy bag with brown stool) Extremity: Normal ROM, Other (b/l BKA) Neurological/Psych: Oriented x3, Normal Speech, Normal Cognition ED Course And Treatment ECG: Interpreted By Me, Viewed By Me ECG Rhythm: Sinus Rhythm, Nonspecific Changes ECG Interpretation: No Acute Changes Rate From EC O2 Sat by Pulse Oximetry: 100 Pulse Ox Interpretation: Normal Disposition Counseled Patient/Family Regarding: Diagnosis, Need For Followup - Disposition Referrals: Merritt Macdonald MD [Staff Provider] - Disposition: HOME/ ROUTINE Disposition Time: 19:13 Condition: STABLE Additional Instructions: Follow up with your Service Line Layer. Return to the ER if you develop dizziness, lethargy, worsening of symptom or if you have any other concerns. Instructions: Hemodialysis (DC) Forms: [facility] ([place]) - Clinical Impression Clinical Impression: Hemodialysis-associated hypotension
[2017-09-05 23:25] VITALS: BP 110/70; PULSE 80; RESP 14; TEMP 97.8; O2SAT 98
--- NOTE | 2017-09-06 22:27 | CARD ---
APPROVED REPORT EKG Measurement Heart [id number] 130P64 [id number] <Conclusion> Normal sinus rhythm Possible Left atrial enlargement Prolonged QT Mild QRS widening Abnormal ECG
== END 2017-09-05 23:00 | disposition home or self-care (01) ==
LOC: C.ER 17:40
DX: I95.3 Hypotension of hemodialysis (principal)

== ENCOUNTER 2017-09-09 09:42 | Inpatient (IN) | payer OTHER ==
[2017-09-09 09:42] VITALS: BMI 26.9
--- NOTE | 2017-09-09 11:13 | C.PDOC ---
History Of Present Illness 51 y/o female with history of DM, HTN and End stage renal disease on dialysis ( Saturday, and Saturday) presents to ED with complaints of feeling weak and dizziness. Patient reports similar episode of symptoms intermittently for 1 month, no new symptoms. Patient states she was told she was having a picc line inserted secondary to colostomy reversal in 2 days. Patient also notes she slammed right 2nd finger nail 1 week ago on door and continues to have pain to the area. Patient denies chest pain, sob, headache, numbness or abdominal pain. Time Seen by Provider: 09/09/17 10:57 Chief Complaint (Nursing): Vascular Access Device Problem History Per: Patient History/Exam Limitations: no limitations Onset/Duration Of Symptoms: Days Current Symptoms Are (Timing): Still Present Past Medical History Reviewed: Historical Data, Nursing Documentation, Vital Signs Vital Signs: Last Vital Signs Temp 97.9 F 09/09/17 15:30 Pulse 84 09/09/17 15:30 Resp 16 09/09/17 15:30 BP 114/51 L 09/09/17 15:30 Pulse Ox 98 09/09/17 16:30 - Medical History PMH: Anemia, Anxiety, Bronchitis, CHF, Diabetes, HTN, Hypercholesterolemia, End Stage Renal Disease (on hemodialysis Sat//Sat.), Chronic Kidney Disease Surgical History: - [facility] Procedures (08/14/17) BYPASS RIGHT FEMORAL ARTERY TO POPLIT ART, OPEN APPROACH (10/26/16) CREATE CUTANPERITON FIST (12/30/14) DETACHMENT AT LEFT LOWER LEG, HIGH, OPEN APPROACH (05/03/17) DETACHMENT AT RIGHT FOOT, PARTIAL 1ST RAY, OPEN APPROACH (02/04/17) DETACHMENT AT RIGHT FOOT, PARTIAL 2ND RAY, OPEN APPROACH (02/04/17) DETACHMENT AT RIGHT FOOT, PARTIAL 3RD RAY, OPEN APPROACH (02/04/17) DETACHMENT AT RIGHT FOOT, PARTIAL 4TH RAY, OPEN APPROACH (02/04/17) DETACHMENT AT RIGHT FOOT, PARTIAL 5TH RAY, OPEN APPROACH (02/04/17) DETACHMENT AT RIGHT KNEE REGION, OPEN APPROACH (02/04/17) DILATION OF R COM ILIAC ART WITH INTRALUM DEV, PERC APPROACH (10/26/16) EXCISION OF RIGHT FOOT SKIN, EXTERNAL APPROACH (02/04/17) EXCISION OF SIGMOID COLON, OPEN APPROACH (02/04/17) FLUOROSCOPY OF LEFT HEART USING LOW OSMOLAR CONTRAST (10/26/16) FLUOROSCOPY OF MULT COR ART USING L OSM CONTRAST (10/26/16) HEMODIALYSIS (11/06/14) INSERTION OF INFUSION DEV INTO R SUBCLAV VEIN, PERC APPROACH (02/04/17) INSERTION OF INFUSION DEV INTO SUP VENA CAVA, PERC APPROACH (02/04/17) INSPECTION OF LOWER INTESTINAL TRACT, ENDO (07/24/17) IRRIGATION OF PERITON CAV USING DIALYSATE, PERC APPROACH (05/03/17) LAPAROSCOP LYSIS-PERITONEAL ADHES (12/30/14) MEASURE OF CARDIAC SAMPL & PRESSURE, L HEART, PERC APPROACH (10/26/16) PLAIN RADIOGRAPHY OF AORTA, BI LE ART USING L OSM CONTRAST (10/26/16) REMOVAL OF INFUSION DEVICE FROM GREAT VESSEL, PERC APPROACH (02/04/17) REMOVAL OF INFUSION DEVICE FROM PERITON CAV, ACLS SPECIALIST APPROACH (08/14/17) TRANSFUSE NONAUT RED BLOOD CELLS IN PERIPH VEIN, PERC (02/04/17) VASCULAR CATH IRRIGATION (01/14/15) VENOUS CATHETERIZATION FOR RENAL DIALYSIS (11/06/14) Family History: States: No Known Family Hx - Social History Hx Tobacco Use: Yes Hx Alcohol Use: No Hx Substance Use: No - Immunization History Hx Tetanus Toxoid Vaccination: Yes Hx Influenza Vaccination: No Hx Pneumococcal Vaccination: No Review Of Systems Constitutional: Negative for: Fever, Chills Gastrointestinal: Negative for: Nausea, Vomiting Neurological: Positive for: Weakness, Dizziness. Negative for: Numbness, Headache Physical Exam - Physical Exam Appears: Non-toxic, No Acute Distress, Chronically Ill Skin: Warm, Dry, No Rash Head: Atraumatic, Normacephalic Eye(s): bilateral: Normal Inspection, EOMI Oral Mucosa: Moist Neck: Normal ROM, Supple Chest: Symmetrical Cardiovascular: Rhythm Regular Respiratory: Normal Breath Sounds, No Rales, No Rhonchi, No Wheezing Gastrointestinal/Abdominal: Soft, Tenderness (Mild diffuse ), No Guarding, No Rebound, Other (Colostomy bag intact with light brown stool ) Extremity: Tenderness ((+) mild tenderness and swelling to the right second finger, (+) hypertrophic nails), Other (bilateral BKA ) Neurological/Psych: Oriented x3, Normal Speech ED Course And Treatment - Laboratory Results Result Diagrams: 09/09/17 11:55 09/09/17 11:55 O2 Sat by Pulse Oximetry: 98 Progress Note: Blood work, Piccline, Renal diet ordered. IV fluids administered. Case discussed with dr aVzquez, agreed upon plan and admission. Disposition - Disposition Disposition: HOSPITALIZED Disposition Time: 12:00 Condition: STABLE - Clinical Impression Clinical Impression: End stage renal disease, Hypotension, Weakness - PA / CANDLE MOLDER / Resident Statement MD/DO has reviewed & agrees with the documentation as recorded. - Scribe Statement The provider has reviewed the documentation as recorded by the Hannahibabram Bejarano All medical record entries made by the Jorge were at my direction and personally dictated by me. I have reviewed the chart and agree that the record accurately reflects my personal performance of the history, physical exam, medical decision making, and the department course for this patient. I have also personally directed, reviewed, and agree with the discharge instructions and disposition.
[2017-09-09] MEDS ORDERED: Sodium Chloride 0.9% 250 ML IV ONE (11:20)
[2017-09-09 11:59] LABS: BASO # 0.1 K/uL (0.0-0.2); BASO % 1.1 % (0.0-2.0); EOS # 0.1 K/uL (0.0-0.7); EOS % 1.8 % (0.0-4.0); HEMOGLOBIN 10.4 g/dL (11.0-16.0); LYMPH # 1.5 K/uL (1.0-4.3); LYMPH % 28.7 % (20.0-40.0); MEAN CORPUSCULAR HGB CONC 32.9 g/dL (33.0-37.0); MEAN PLATELET VOLUME 9.3 fL (7.2-11.7); MONO # 0.5 K/uL (0.0-0.8); MONO % 9.7 % (0.0-10.0); NEUT % 58.7 % (50.0-75.0); RBC 3.15 Mil/uL (3.80-5.20); RED CELL DISTRIBUTION WIDTH 17.7 % (11.5-14.5); WHITE BLOOD COUNT 5.2 K/uL (4.8-10.8)
[2017-09-09 12:01] LABS: MEAN CELL VOLUME 100.3 fL (81.0-99.0)
[2017-09-09 12:06] LABS: PROTHROMBIN TIME 11.1 SECONDS (9.7-12.2)
[2017-09-09 12:21] LABS: ALB/GLOB RATIO 1.3 (1.0-2.1); ALBUMIN 4.1 g/dL (3.5-5.0)
--- NOTE | 2017-09-09 13:57 | CP.PCM.CON ---
History of Present Illness - History of Present Illness History of Present Illness: 51 y/o female with history of DM, HTN and End stage renal disease "Dialysis Saturday, and Saturday" presents to ED with complaints of feeling weak and dizziness. Patient states she was told she was having a picc line inserted secondary to colostomy reversal. Patient reports similar episode of symptoms intermittently for 1 month. Patient notes she slammed right 2nd finger nail 1 week ago on door. Patient denies chest pain,s ob, headache, numbness or any other complaints at this time. Recently HTN labile- meds decreased. PMH: ESRD DM 1 HTN PVD- POST BILATERAL BKAs PSH: PD CATH PLACEMENT AND REMOVAL BKA X 2 PERMCATH Review of Systems - Constitutional Constitutional: Weight Loss, Weakness - EENT Eyes: absent: As Per HPI, Blind Spots, Blurred Vision, Change in Vision, Decreased Night Vision, Diplopia, Discharge, Dry Eye, Exophthalmos, Floaters, Irritation, Itchy Eyes, Loss of Peripheral Vision, Pain, Photophobia, Requires Corrective Lenses, Sees Flashes, Spots in Vision, Tunnel Vision, Other Visual Disturbances, Loss of Vision, Other Ears: absent: As Per HPI, Decreased Hearing, Ear Discharge, Ear Pain, Tinnitus, Abnormal Hearing, Disequilibrium, Dizziness, Other Nose/Mouth/Throat: absent: As Per HPI, Epistaxis, Nasal Congestion, Nasal Discharge, Nasal Obstruction, Nasal Trauma, Nose Pain, Post Nasal Drip, Sinus Pain, Sinus Pressure, Bleeding Gums, Change in Voice, Dental Pain, Dry Mouth, Dysphagia, Halitosis, Hoarsness, Lip Swelling, Mouth Lesions, Mouth Pain, Odynophagia, Sore Throat, Throat Swelling, Tongue Swelling, Facial Pain, Neck Pain, Neck Mass, Other - Cardiovascular Cardiovascular: Dyspnea on Exertion, Lightheadedness - Respiratory Respiratory: absent: As Per HPI, Cough, Dyspnea, Hemoptysis, Dyspnea on Exertion , Wheezing, Snoring, Stridor, Pain on Inspiration, Chest Congestion, Excessive Mucous Production, Change in Mucous Color, Pain with Coughing, Other - Gastrointestinal Gastrointestinal: As Per HPI - Genitourinary Genitourinary: As Per HPI - Musculoskeletal Musculoskeletal: Muscle Cramps, Muscle Weakness - Integumentary Integumentary: absent: As Per HPI, Acne, Alopecia, Bleeding Lesions, Change in Hair, Change in Nails, Change in Pigmentation, Changing Lesions, Dry Skin, Erythema, Furuncle, Hirsutism, Lesions, New Lesions, Non-Healing Lesions, Photosensitivity, Pruritus, Rash, Skin Pain, Skin Ulcer, Sores, Striae, Swelling , Unusual Bruising, Wounds, Jaundice, Other Past Patient History - Infectious Disease Hx of Infectious Diseases: None - Past Medical History & Family History Past Medical History?: Yes Past Family History: Reviewed and not pertinent - Past Social History Smoking Status: Former Smoker Chewing Tobacco Use: No Cigar Use: No Alcohol: None Drugs: Denies Home Situation {Lives}: Correction - CARDIAC Hx Congestive Heart Failure: Yes Hx Hypercholesterolemia: Yes Hx Hypertension: Yes - PULMONARY Hx Bronchitis: Yes - NEUROLOGICAL Hx Neurological Disorder: No - HEENT Hx HEENT Problems: No - RENAL Hx Chronic Kidney Disease: Yes - ENDOCRINE/METABOLIC Hx Endocrine Disorders: Yes Hx Diabetes Mellitus Type 2: Yes - HEMATOLOGICAL/ONCOLOGICAL Hx Anemia: Yes - INTEGUMENTARY Hx Dermatological Problems: Yes Hx Eczema: Yes - MUSCULOSKELETAL/RHEUMATOLOGICAL Hx Musculoskeletal Disorders: Yes Hx Falls: No Other/Comment: bilat..bka.. pt is wheelchair bound - GASTROINTESTINAL Hx Gastrointestinal Disorders: Yes (INTESTINAL OBSTRUCTION) Hx Ileostomy: Yes Other/Comment: S/P ILEOSTOMY - GENITOURINARY/GYNECOLOGICAL Hx Genitourinary Disorders: Yes (DX: RENAL FAILURE) - PSYCHIATRIC Hx Anxiety: Yes Hx Substance Use: No - SURGICAL HISTORY Hx Surgeries: Yes Hx Amputation: Yes (bilat bka) Hx Section: Yes Hx Eye Surgery: Yes (INSERT "GAS" BUBBLE BOTH EYES) Hx Tubal Ligation: Yes Hx Vascular Access Device: Yes (R SC HD cath) Other/Comment: I&D GROIN; 12/30/14 LAPAROSCOPIC INSERTION PERITONEAL DIALYSIS CATHETE over right chest. 01/14/15 REVISION DONE OF PERITIONEAL DIALYSIS CATH. 08/15/17 0230 - Patient refusing to give further information at this time REMOVAL RETAINED PERITONEAL DIALYSIS CATHETER - ANESTHESIA Hx Anesthesia: Yes Hx Anesthesia Reactions: No Hx Malignant Hyperthermia: No Meds Allergies/Adverse Reactions: Allergies Allergy/AdvReac Type Severity Reaction Status Date / Time shrimp Allergy Severe RASH Verified 08/14/17 19:34 Physical Exam - Constitutional Appears: Non-toxic, No Acute Distress, Chronically Ill - Head Exam Head Exam: ATRAUMATIC, NORMAL INSPECTION - Eye Exam Eye Exam: EOMI, Normal appearance - Neck Exam Neck exam: Positive for: Normal Inspection. Negative for: Tenderness - Respiratory Exam Respiratory Exam: Clear to Auscultation Bilateral, NORMAL BREATHING PATTERN - Cardiovascular Exam Cardiovascular Exam: REGULAR RHYTHM, +S1 - GI/Abdominal Exam GI & Abdominal Exam: Soft. absent: Tenderness - Extremities Exam Extremities exam: Positive for: calf tenderness, tenderness - Neurological Exam Neurological exam: Alert, CN II-XII Intact, Oriented x3 - Skin Skin Exam: Dry, Warm Results - Vital Signs Recent Vital Signs: Last Vital Signs Temp 98.1 F 09/09/17 09:58 Pulse 79 09/09/17 12:18 Resp 15 09/09/17 12:18 BP 130/64 09/09/17 12:18 Pulse Ox 97 09/09/17 12:18 - Labs Result Diagrams: 09/09/17 11:55 09/09/17 11:55 Labs: Laboratory Results - last 24 hr 09/09/17 09/09/17 09/09/17 11:55 11:55 11:55 WBC 5.2 RBC 3.15 L Hgb 10.4 L Hct 31.6 L MCV 100.3 H D MCH 33.0 H MCHC 32.9 L RDW 17.7 H Plt Count 162 MPV 9.3 Neut % (Auto) 58.7 Lymph % (Auto) 28.7 Will % (Auto) 9.7 Eos % (Auto) 1.8 Baso % (Auto) 1.1 Neut # (Auto) 3.0 Lymph # (Auto) 1.5 Will # (Auto) 0.5 Eos # (Auto) 0.1 Baso # (Auto) 0.1 PT 11.1 INR 1.0 APTT 31 Sodium 134 Potassium 4.7 Chloride 92 L Carbon Dioxide 25 Anion Gap 22 H BUN 32 H Creatinine 9.3 H* Est GFR ( Amer) 5 Est GFR (Non-Af Amer) 4 Random Glucose 308 H Calcium 10.0 Total Bilirubin 0.5 AST 25 ALT 14 Alkaline Phosphatase 62 Total Protein 7.3 Albumin 4.1 Globulin 3.2 Albumin/Globulin Ratio 1.3 Blood Type Antibody Screen 09/09/17 11:55 WBC RBC Hgb Hct MCV MCH MCHC RDW Plt Count MPV Neut % (Auto) Lymph % (Auto) Will % (Auto) Eos % (Auto) Baso % (Auto) Neut # (Auto) Lymph # (Auto) Will # (Auto) Eos # (Auto) Baso # (Auto) PT INR APTT Sodium Potassium Chloride Carbon Dioxide Anion Gap BUN Creatinine Est GFR ( Amer) Est GFR (Non-Af Amer) Random Glucose Calcium Total Bilirubin AST ALT Alkaline Phosphatase Total Protein Albumin Globulin Albumin/Globulin Ratio Blood Type O POSITIVE Antibody Screen Negative Assessment & Plan (1) PVD (peripheral vascular disease) Status: Acute (2) S/P BKA (below knee amputation) bilateral Status: Acute - Assessment and Plan (Free Text) Plan: dialysis TTS monitor HTN reversal of colostomy
--- NOTE | 2017-09-09 19:40 | CP.PCM.HP ---
History of Present Illness - History of Present Illness History of Present Illness: Chief complaints: Colostomy drainage, mal function. History of present illness: 51-year-old female with a history of hypertension diabetes end-stage renal disease peripheral vascular disease Below-knee amputation, bilaterally End- stage renal disease on dialysis, TTS, Recently hospitalized with acute hyperkalemia, and also noncompliance with medication. Patient currently having high output colostomy noted. Occasional nausea. No vomiting. Denies any chest pain. No cough. Past medical history: Hypertension, diabetes, hyperlipidemia, peripheral vascular disease, history of atherosclerotic heart disease,End-stage renal disease, on peritoneal dialysis in the past, now on hemodialysis. Surgical history: Patient has a hemodialysis catheter and the right internal jugular vein. Bilateral below-knee amputation. Patient has severe constipation, complicated with colitis, impending rupture, underwent near total colostomy, and colostomy. Allergies: No known drug allergy Personal history: Used to be a smoker in the past, also was using drugs in the past. Denies any alcohol Review of systems Currently having no headache, no chest pain or shortness of breath. Right hemodialysis catheter in the internal jugular vein. Colostomy. Below-knee Amputation bilaterally. Vital signs reviewed No neck vein distention noted Chest good air entry bilaterally, no wheezing or rales noted CVS regular heart sound, no murmur noted Abdomen soft, nontender. 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 Status post a colostomy, and a colectomy admitted Now admitted with problem is in the colostomy, and the possible reversal of colostomy. The patient was seen by veterinary manager in the past. She underwent extensive workup in the Past Continue to control blood sugar, glucose monitoring. Pain control. Dialysis. Surgical, nephrology evaluation. Will follow the patient Present on Admission - Present on Admission Any Indicators Present on Admission: No History of DVT/PE: No History of Uncontrolled Diabetes: No Urinary Catheter: No Decubitus Ulcer Present: No Past Patient History - Infectious Disease Hx of Infectious Diseases: None - Past Medical History & Family History Past Medical History?: Yes - Past Social History Smoking Status: Never Smoked - CARDIAC Hx Congestive Heart Failure: Yes Hx Hypercholesterolemia: Yes Hx Hypertension: Yes - PULMONARY Hx Bronchitis: Yes - NEUROLOGICAL Hx Neurological Disorder: No - HEENT Hx HEENT Problems: No - RENAL Hx Chronic Kidney Disease: Yes - ENDOCRINE/METABOLIC Hx Endocrine Disorders: Yes Hx Diabetes Mellitus Type 2: Yes - HEMATOLOGICAL/ONCOLOGICAL Hx Anemia: Yes - INTEGUMENTARY Hx Dermatological Problems: Yes Hx Eczema: Yes - MUSCULOSKELETAL/RHEUMATOLOGICAL Hx Falls: No - GASTROINTESTINAL Hx Gastrointestinal Disorders: Yes (INTESTINAL OBSTRUCTION) Hx Ileostomy: Yes Other/Comment: S/P ILEOSTOMY - GENITOURINARY/GYNECOLOGICAL Hx Genitourinary Disorders: Yes (DX: RENAL FAILURE) - PSYCHIATRIC Hx Anxiety: Yes Hx Substance Use: No - SURGICAL HISTORY Hx Surgeries: Yes Hx Amputation: Yes (bilat bka) Hx Section: Yes Hx Eye Surgery: Yes (INSERT "GAS" BUBBLE BOTH EYES) Hx Tubal Ligation: Yes Hx Vascular Access Device: Yes (R SC HD cath) Other/Comment: I&D GROIN; 12/30/14 LAPAROSCOPIC INSERTION PERITONEAL DIALYSIS CATHETE over right chest. 01/14/15 REVISION DONE OF PERITIONEAL DIALYSIS CATH. 08/15/17 0230 - Patient refusing to give further information at this time REMOVAL RETAINED PERITONEAL DIALYSIS CATHETER - ANESTHESIA Hx Anesthesia: Yes Hx Anesthesia Reactions: No Hx Malignant Hyperthermia: No Meds Allergies/Adverse Reactions: Allergies Allergy/AdvReac Type Severity Reaction Status Date / Time shrimp Allergy Severe RASH Verified 08/14/17 19:34 Results - Vital Signs Recent Vital Signs: Last Vital Signs Temp 97.6 F 09/09/17 16:40 Pulse 84 09/09/17 17:59 Resp 20 09/09/17 16:40 BP 126/69 09/09/17 16:40 Pulse Ox 98 09/09/17 16:40 - Labs Result Diagrams: 09/10/17 07:38 09/10/17 07:38 Labs: Laboratory Results - last 24 hr 09/09/17 09/09/17 09/09/17 11:55 11:55 11:55 WBC 5.2 RBC 3.15 L Hgb 10.4 L Hct 31.6 L MCV 100.3 H D MCH 33.0 H MCHC 32.9 L RDW 17.7 H Plt Count 162 MPV 9.3 Neut % (Auto) 58.7 Lymph % (Auto) 28.7 [place] % (Auto) 9.7 Eos % (Auto) 1.8 Baso % (Auto) 1.1 Neut # (Auto) 3.0 Lymph # (Auto) 1.5 [place] # (Auto) 0.5 Eos # (Auto) 0.1 Baso # (Auto) 0.1 PT 11.1 INR 1.0 APTT 31 Sodium 134 Potassium 4.7 Chloride 92 L Carbon Dioxide 25 Anion Gap 22 H BUN 32 H Creatinine 9.3 H* Est GFR ( Amer) 5 Est GFR (Non-Af Amer) 4 POC Glucose (mg/dL) Random Glucose 308 H Calcium 10.0 Total Bilirubin 0.5 AST 25 ALT 14 Alkaline Phosphatase 62 Total Protein 7.3 Albumin 4.1 Globulin 3.2 Albumin/Globulin Ratio 1.3 Blood Type Antibody Screen 09/09/17 09/09/17 11:55 16:38 WBC RBC Hgb Hct MCV MCH MCHC RDW Plt Count MPV Neut % (Auto) Lymph % (Auto) [place] % (Auto) Eos % (Auto) Baso % (Auto) Neut # (Auto) Lymph # (Auto) [place] # (Auto) Eos # (Auto) Baso # (Auto) PT INR APTT Sodium Potassium Chloride Carbon Dioxide Anion Gap BUN Creatinine Est GFR ( Amer) Est GFR (Non-Af Amer) POC Glucose (mg/dL) 297 H Random Glucose Calcium Total Bilirubin AST ALT Alkaline Phosphatase Total Protein Albumin Globulin Albumin/Globulin Ratio Blood Type O POSITIVE Antibody Screen Negative
--- NOTE | 2017-09-09 22:22 | CP.PCM.CON ---
History of Present Illness - History of Present Illness History of Present Illness: General surgery consult note for DR. Clark Consulted for: ileostomy reversal Pt is a 51 Y/O F with PSH of subtotal colectomy and ileostomy for severe constipation d/t colonic stasis. Patient is scheduled for ileostomy reversal in 2 days and was admitted for dizziness and will be pre-operatively medically optimized. Patient denies any complications with the ileostomy lately, or any abdominal pain, nausea, output from her rectum, fevers, chest pain, SOB. Patient does report having one episode of non-bloody non-bilious emesis last week with no further symptoms. Patient is eager to have her surgery. PMH: HTN, DM, ESRD on HD, PVD, eczema, drug/ETOH abuse, colonic stasis PSH: R fem-pop bypass, BL BKA, subtotal colectomy with ileostomy, PD catheter, permacath ALL: shrimp (not contrast) Review of Systems - Review of Systems All systems: reviewed and no additional remarkable complaints except (as per HPI ) - Musculoskeletal Additional comments: BL burning pain in her former BKA sites Past Patient History - Infectious Disease Hx of Infectious Diseases: None - Past Medical History & Family History Past Medical History?: Yes - Past Social History Smoking Status: Former Smoker (quit 9 months ago) Alcohol: Other (former heavy drinker, quit 2008) Drugs: Other (prior) - CARDIAC Hx Congestive Heart Failure: Yes Hx Hypercholesterolemia: Yes Hx Hypertension: Yes - PULMONARY Hx Bronchitis: Yes - NEUROLOGICAL Hx Neurological Disorder: No - HEENT Hx HEENT Problems: No - RENAL Hx Chronic Kidney Disease: Yes - ENDOCRINE/METABOLIC Hx Endocrine Disorders: Yes Hx Diabetes Mellitus Type 2: Yes - HEMATOLOGICAL/ONCOLOGICAL Hx Anemia: Yes - INTEGUMENTARY Hx Dermatological Problems: Yes Hx Eczema: Yes - MUSCULOSKELETAL/RHEUMATOLOGICAL Hx Falls: No - GASTROINTESTINAL Hx Gastrointestinal Disorders: Yes (INTESTINAL OBSTRUCTION) Hx Ileostomy: Yes Other/Comment: S/P ILEOSTOMY - GENITOURINARY/GYNECOLOGICAL Hx Genitourinary Disorders: Yes (DX: RENAL FAILURE) - PSYCHIATRIC Hx Anxiety: Yes Hx Substance Use: No - SURGICAL HISTORY Hx Surgeries: Yes Hx Amputation: Yes (bilat bka) Hx Section: Yes Hx Eye Surgery: Yes (INSERT "GAS" BUBBLE BOTH EYES) Hx Tubal Ligation: Yes Hx Vascular Access Device: Yes (R SC HD cath) Other/Comment: I&D GROIN; 12/30/14 LAPAROSCOPIC INSERTION PERITONEAL DIALYSIS CATHETE over right chest. 01/14/15 REVISION DONE OF PERITIONEAL DIALYSIS CATH. 08/15/17 0230 - Patient refusing to give further information at this time REMOVAL RETAINED PERITONEAL DIALYSIS CATHETER - ANESTHESIA Hx Anesthesia: Yes Hx Anesthesia Reactions: No Hx Malignant Hyperthermia: No Meds Allergies/Adverse Reactions: Allergies Allergy/AdvReac Type Severity Reaction Status Date / Time shrimp Allergy Severe RASH Verified 08/14/17 19:34 - Medications Medications: Current Medications Aspirin (Ecotrin) 81 mg PO DAILY [facility] Carvedilol (Coreg) 3.125 mg PO BID [facility] Famotidine (Pepcid) 20 mg PO DAILY [facility] Gabapentin (Neurontin) 100 mg PO Q12 [facility] Last Admin: 09/09/17 21:27 Dose: 100 mg Heparin Sodium (Porcine) (Heparin) 5,000 units SC Q12 [facility] Last Admin: 09/09/17 21:27 Dose: 5,000 units Rosuvastatin Calcium (Crestor) 10 mg PO HS [facility] Last Admin: 09/09/17 21:28 Dose: 10 mg Vitamin B Complex/Vit C/Folic Acid (Nephro-Cony) 1 tab PO DAILY [facility] Physical Exam - Constitutional Appears: Well, Non-toxic, No Acute Distress - Head Exam Head Exam: ATRAUMATIC, NORMOCEPHALIC - Eye Exam Eye Exam: Normal appearance - ENT Exam ENT Exam: Mucous Membranes Moist, Normal Oropharynx - Respiratory Exam Respiratory Exam: NORMAL BREATHING PATTERN. absent: Accessory Muscle Use, Respiratory Distress - Cardiovascular Exam Cardiovascular Exam: RRR - GI/Abdominal Exam GI & Abdominal Exam: Soft. absent: Distended, Tenderness Additional comments: ileostomy in the RLQ pink, patent, productive of yellow liquid stool - Extremities Exam Additional comments: BL BKA with incisions well healed, no erythema, no swelling - Neurological Exam Neurological exam: Alert, Oriented x3 - Psychiatric Exam Psychiatric exam: Flat Affect, Normal Mood - Skin Skin Exam: Dry, Normal Color, Warm Additional comments: Stage 1 decubitus ulcer of the sacrum Results - Vital Signs Recent Vital Signs: Last Vital Signs Temp 97.6 F 09/09/17 16:40 Pulse 84 09/09/17 17:59 Resp 20 09/09/17 16:40 BP 126/69 09/09/17 16:40 Pulse Ox 98 09/09/17 16:40 - Labs Result Diagrams: 09/09/17 11:55 09/09/17 11:55 Labs: Laboratory Results - last 24 hr 09/09/17 09/09/17 09/09/17 11:55 11:55 11:55 WBC 5.2 RBC 3.15 L Hgb 10.4 L Hct 31.6 L MCV 100.3 H D MCH 33.0 H MCHC 32.9 L RDW 17.7 H Plt Count 162 MPV 9.3 Neut % (Auto) 58.7 Lymph % (Auto) 28.7 [place] % (Auto) 9.7 Eos % (Auto) 1.8 Baso % (Auto) 1.1 Neut # (Auto) 3.0 Lymph # (Auto) 1.5 [place] # (Auto) 0.5 Eos # (Auto) 0.1 Baso # (Auto) 0.1 PT 11.1 INR 1.0 APTT 31 Sodium 134 Potassium 4.7 Chloride 92 L Carbon Dioxide 25 Anion Gap 22 H BUN 32 H Creatinine 9.3 H* Est GFR ( Amer) 5 Est GFR (Non-Af Amer) 4 POC Glucose (mg/dL) Random Glucose 308 H Calcium 10.0 Total Bilirubin 0.5 AST 25 ALT 14 Alkaline Phosphatase 62 Total Protein 7.3 Albumin 4.1 Globulin 3.2 Albumin/Globulin Ratio 1.3 Blood Type Antibody Screen 09/09/17 09/09/17 09/09/17 11:55 16:38 21:39 WBC RBC Hgb Hct MCV MCH MCHC RDW Plt Count MPV Neut % (Auto) Lymph % (Auto) [place] % (Auto) Eos % (Auto) Baso % (Auto) Neut # (Auto) Lymph # (Auto) [place] # (Auto) Eos # (Auto) Baso # (Auto) PT INR APTT Sodium Potassium Chloride Carbon Dioxide Anion Gap BUN Creatinine Est GFR ( Amer) Est GFR (Non-Af Amer) POC Glucose (mg/dL) 297 H 302 H Random Glucose Calcium Total Bilirubin AST ALT Alkaline Phosphatase Total Protein Albumin Globulin Albumin/Globulin Ratio Blood Type O POSITIVE Antibody Screen Negative Assessment & Plan - Assessment and Plan (Free Text) Assessment: 51F with prior subtotal colectomy and ileostomy, here for reversal of ileostomy Plan: -OR on 09/11 for ileostomy revesal -CLD -soap suds enema -medical and cardiac clearance -continue medical management per primary -hold plavix for OR Discussed with Dr. Eduardo Dubon PGY2
[2017-09-10 07:48] LABS: BASO # 0.1 K/uL (0.0-0.2); BASO % 0.8 % (0.0-2.0); EOS # 0.1 K/uL (0.0-0.7); EOS % 1.2 % (0.0-4.0); HEMOGLOBIN 10.2 g/dL (11.0-16.0); LYMPH # 2.4 K/uL (1.0-4.3); LYMPH % 31.5 % (20.0-40.0); MEAN CELL VOLUME 101.4 fL (81.0-99.0); MEAN CORPUSCULAR HEMOGLOBIN 33.9 pg (27.0-31.0); MEAN CORPUSCULAR HGB CONC 33.4 g/dL (33.0-37.0); MONO # 0.6 K/uL (0.0-0.8); MONO % 8.6 % (0.0-10.0); NEUT # 4.4 K/uL (1.8-7.0); NEUT % 57.9 % (50.0-75.0); RBC 3.01 Mil/uL (3.80-5.20); RED CELL DISTRIBUTION WIDTH 17.4 % (11.5-14.5); WHITE BLOOD COUNT 7.5 K/uL (4.8-10.8)
[2017-09-10 08:14] LABS: CALCIUM 9.5 mg/dl (8.6-10.4)
--- NOTE | 2017-09-10 08:42 | CP.PCM.PN ---
Subjective - Date & Time of Evaluation Date of Evaluation: 09/10/17 Time of Evaluation: 08:38 - Subjective Subjective: Surgery: Dr. Clark Pt seen and examined. No acute overnight events. States she feels ok this morning and denies any complaints. She's tolerating her diet and denies abdominal pain. Denies F/C, N/V. Objective - Vital Signs/Intake and Output Vital Signs (last 24 hours): Temp Pulse Resp BP Pulse Ox 98.3 F 87 20 165/82 H 96 09/10/17 08:21 09/10/17 08:21 09/10/17 08:21 09/10/17 08:21 09/10/17 08:21 Intake and Output: 09/10/17 09/10/17 06:59 18:59 Output Total 250 Balance -250 - Medications Medications: Current Medications Aspirin (Ecotrin) 81 mg PO DAILY [facility] Carvedilol (Coreg) 3.125 mg PO BID [facility] Famotidine (Pepcid) 20 mg PO DAILY [facility] Gabapentin (Neurontin) 100 mg PO Q12 [facility] Last Admin: 09/09/17 21:27 Dose: 100 mg Heparin Sodium (Porcine) (Heparin) 5,000 units SC Q12 [facility] Last Admin: 09/09/17 21:27 Dose: 5,000 units Rosuvastatin Calcium (Crestor) 10 mg PO HS [facility] Last Admin: 09/09/17 21:28 Dose: 10 mg Vitamin B Complex/Vit C/Folic Acid (Nephro-Cony) 1 tab PO DAILY [facility] - Labs Labs: 09/10/17 07:38 09/10/17 07:38 PT 11.1 SECONDS (9.7-12.2) 09/09/17 11:55 INR 1.0 09/09/17 11:55 APTT 31 SECONDS (21-34) 09/09/17 11:55 - Constitutional Appears: Well, No Acute Distress - Head Exam Head Exam: ATRAUMATIC, NORMOCEPHALIC - ENT Exam ENT Exam: Mucous Membranes Moist - Respiratory Exam Respiratory Exam: NORMAL BREATHING PATTERN - Cardiovascular Exam Cardiovascular Exam: RRR - GI/Abdominal Exam GI & Abdominal Exam: Soft. absent: Distended, Tenderness Additional comments: ileostomy in place RLQ, functioning - Neurological Exam Neurological Exam: Alert, Awake, Oriented x3 - Skin Skin Exam: Dry, Warm Assessment and Plan - Assessment and Plan (Free Text) Assessment: 51F with RLQ ileostomy for reversal Plan: - OR tomorrow for ileostomy reversal - Keep NPO after midnight - d/w Dr. Eduardo Alberto, PGY-3
[2017-09-10] MEDS: Multivitamin Vitamin B Complex (Nephro-Vite) Tab PO SCH (09:18)
--- NOTE | 2017-09-10 12:46 | CP.PCM.PN ---
Subjective - Date & Time of Evaluation Date of Evaluation: 09/10/17 Time of Evaluation: 12:43 - Subjective Subjective: seen in hd uf 500cc, low bp asymptomatic awaiting colostomy reversal surgery denies any nausea vomiting diarrhea sob cp fevers chills rash dizziness headache weakness numbness Objective - Vital Signs/Intake and Output Vital Signs (last 24 hours): Temp Pulse Resp BP Pulse Ox 97.9 F 88 18 110/91 H 99 09/10/17 09:20 09/10/17 09:43 09/10/17 09:43 09/10/17 11:50 09/10/17 09:20 Intake and Output: 09/10/17 09/10/17 06:59 18:59 Output Total 250 Balance -250 - Medications Medications: Current Medications Aspirin (Ecotrin) 81 mg PO DAILY [facility] Last Admin: 09/10/17 09:18 Dose: Not Given Carvedilol (Coreg) 3.125 mg PO BID [facility] Last Admin: 09/10/17 09:14 Dose: Not Given Famotidine (Pepcid) 20 mg PO DAILY [facility] Last Admin: 09/10/17 09:18 Dose: Not Given Gabapentin (Neurontin) 100 mg PO Q12 [facility] Last Admin: 09/10/17 09:18 Dose: Not Given Heparin Sodium (Porcine) (Heparin) 5,000 units SC Q12 [facility] Last Admin: 09/10/17 09:18 Dose: Not Given Rosuvastatin Calcium (Crestor) 10 mg PO HS [facility] Last Admin: 09/09/17 21:28 Dose: 10 mg Vitamin B Complex/Vit C/Folic Acid (Nephro-Cony) 1 tab PO DAILY [facility] Last Admin: 09/10/17 09:18 Dose: Not Given - Labs Labs: 09/10/17 07:38 09/10/17 07:38 PT 11.1 SECONDS (9.7-12.2) 09/09/17 11:55 INR 1.0 09/09/17 11:55 APTT 31 SECONDS (21-34) 09/09/17 11:55 - Constitutional Appears: No Acute Distress, Chronically Ill - Head Exam Head Exam: NORMAL INSPECTION, NORMOCEPHALIC - Eye Exam Eye Exam: Normal appearance Pupil Exam: PERRL - ENT Exam ENT Exam: Mucous Membranes Moist, Normal Exam - Neck Exam Neck Exam: Full ROM, Normal Inspection - Respiratory Exam Respiratory Exam: Clear to Ausculation Bilateral, NORMAL BREATHING PATTERN - Cardiovascular Exam Cardiovascular Exam: REGULAR RHYTHM, RRR - GI/Abdominal Exam GI & Abdominal Exam: Distended (colostomy), Soft - Extremities Exam Extremities Exam: Normal Inspection (b/l aka. no edema) - Neurological Exam Neurological Exam: Alert, Awake, Oriented x3 - Psychiatric Exam Psychiatric exam: Normal Affect, Normal Mood - Skin Skin Exam: Intact, Warm Assessment and Plan (1) End stage renal disease Status: Acute (2) Hypotension Status: Acute (3) PVD (peripheral vascular disease) Status: Acute (4) S/P BKA (below knee amputation) bilateral Status: Acute (5) Colostomy complication, unspecified Status: Acute - Assessment and Plan (Free Text) Assessment: maintain hd tts low dose midodrine encourage po protein colostomy reversal per surgery
--- NOTE | 2017-09-10 19:09 | CP.PCM.PN ---
Subjective - Date & Time of Evaluation Date of Evaluation: 09/10/17 Time of Evaluation: 19:07 - Subjective Subjective: Patient is morning was getting the hemodialysis. Seen by surgical team. Scheduled for surgery tomorrow. Currently having venous access difficulty. PICC line was not done yet. Awaiting PICC line. 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 Assessment/recommendation: 51-year-old female with history of hypertension, hyperlipidemia, diabetes, peripheral vascular disease, status post a below-knee amputation. Intestinal obstruction, status post a colostomy, for possible reversal. Patient had a cardiac testing done in November last year. Diffuse atherosclerosis. LV function is normal. Patient is medically stable. Postoperative routine management. Will follow the patient Objective - Vital Signs/Intake and Output Vital Signs (last 24 hours): Temp Pulse Resp BP Pulse Ox 98.5 F 89 20 156/78 H 97 09/10/17 15:25 09/10/17 15:25 09/10/17 15:25 09/10/17 15:25 09/10/17 15:25 Intake and Output: 09/10/17 09/11/17 18:59 06:59 Intake Total 480 Balance 480 - Medications Medications: Current Medications Aspirin (Ecotrin) 81 mg PO DAILY [facility] Last Admin: 09/10/17 09:18 Dose: Not Given Carvedilol (Coreg) 3.125 mg PO BID [facility] Last Admin: 09/10/17 09:14 Dose: Not Given Famotidine (Pepcid) 20 mg PO DAILY [facility] Last Admin: 09/10/17 09:18 Dose: Not Given Gabapentin (Neurontin) 100 mg PO Q12 [facility] Last Admin: 09/10/17 18:03 Dose: 100 mg Heparin Sodium (Porcine) (Heparin) 5,000 units SC Q12 [facility] Last Admin: 09/10/17 09:18 Dose: Not Given Midodrine (Proamatine) 5 mg PO TID [facility] Last Admin: 09/10/17 14:30 Dose: Not Given Rosuvastatin Calcium (Crestor) 10 mg PO HS [facility] Last Admin: 09/09/17 21:28 Dose: 10 mg Vitamin B Complex/Vit C/Folic Acid (Nephro-Cony) 1 tab PO DAILY [facility] Last Admin: 09/10/17 09:18 Dose: Not Given - Labs Labs: 09/10/17 07:38 09/10/17 07:38 PT 11.1 SECONDS (9.7-12.2) 09/09/17 11:55 INR 1.0 09/09/17 11:55 APTT 31 SECONDS (21-34) 09/09/17 11:55
[2017-09-11 07:39] LABS: HEMOGLOBIN 10.7 g/dL (11.0-16.0); MEAN CORPUSCULAR HGB CONC 33.5 g/dL (33.0-37.0); MEAN PLATELET VOLUME 9.9 fL (7.2-11.7); RBC 3.24 Mil/uL (3.80-5.20); WHITE BLOOD COUNT 6.2 K/uL (4.8-10.8)
[2017-09-11 07:51] LABS: MEAN CELL VOLUME 98.3 fL (81.0-99.0)
[2017-09-11 08:01] LABS: CALCIUM 9.5 mg/dl (8.6-10.4)
[2017-09-11] MEDS: Multivitamin Vitamin B Complex (Nephro-Vite) Tab PO SCH (12:39)
--- NOTE | 2017-09-11 14:12 | CP.PCM.PN ---
Subjective - Date & Time of Evaluation Date of Evaluation: 09/11/17 Time of Evaluation: 14:06 - Subjective Subjective: PGY-[address] Clark. No acute events noted overnight. Patient was seen with son at bedside. Patient was upset that surgery was postponed due to the need for cardiac clearance. She asked if she can now eat as she's very hungry. She did not endorse any other medical complaints. Denied fever, chills, nausea, vomiting. Objective - Vital Signs/Intake and Output Vital Signs (last 24 hours): Temp Pulse Resp BP Pulse Ox 98.4 F 96 H 20 159/83 H 99 09/11/17 08:39 09/11/17 08:39 09/11/17 08:39 09/11/17 08:39 09/11/17 08:39 - Medications Medications: Current Medications Aspirin (Ecotrin) 81 mg PO DAILY [facility] Last Admin: 09/11/17 12:38 Dose: Not Given Carvedilol (Coreg) 3.125 mg PO BID [facility] Last Admin: 09/11/17 11:15 Dose: Not Given Famotidine (Pepcid) 20 mg PO DAILY [facility] Last Admin: 09/11/17 12:39 Dose: 20 mg Gabapentin (Neurontin) 100 mg PO Q12 [facility] Last Admin: 09/11/17 12:39 Dose: 100 mg Heparin Sodium (Porcine) (Heparin) 5,000 units SC Q12 [facility] Last Admin: 09/10/17 22:00 Dose: 5,000 units Midodrine (Proamatine) 5 mg PO TID [facility] Last Admin: 09/11/17 11:00 Dose: Not Given Rosuvastatin Calcium (Crestor) 10 mg PO HS [facility] Last Admin: 09/10/17 22:00 Dose: 10 mg Vitamin B Complex/Vit C/Folic Acid (Nephro-Cony) 1 tab PO DAILY [facility] Last Admin: 09/11/17 12:39 Dose: 1 tab - Labs Labs: 09/11/17 07:30 09/11/17 07:30 PT 11.1 SECONDS (9.7-12.2) 09/09/17 11:55 INR 1.0 09/09/17 11:55 APTT 31 SECONDS (21-34) 09/09/17 11:55 - Additional Findings Additional findings: - Constitutional Appears: Well, Non-toxic, No Acute Distress - Head Exam Head Exam: ATRAUMATIC, NORMOCEPHALIC - Eye Exam Eye Exam: Normal appearance - ENT Exam ENT Exam: Mucous Membranes Moist, Normal Oropharynx - Respiratory Exam Respiratory Exam: NORMAL BREATHING PATTERN. absent: Accessory Muscle Use, Respiratory Distress - Cardiovascular Exam Cardiovascular Exam: RRR - GI/Abdominal Exam GI & Abdominal Exam: Soft. absent: Distended, Tenderness Additional comments: ileostomy in the RLQ pink, patent, productive of yellow liquid stool - Extremities Exam Additional comments: BL BKA with incisions well healed, no erythema, no swelling - Neurological Exam Neurological exam: Alert, Oriented x3 - Psychiatric Exam Psychiatric exam: Flat Affect, Normal Mood - Skin Skin Exam: Dry, Normal Color, Warm Additional comments: Stage 1 decubitus ulcer of the sacrum Assessment and Plan - Assessment and Plan (Free Text) Assessment: 51F with RLQ ileostomy for reversal Plan: - Patient will need cardiac clearance prior to surgery * [employer] Instructor Dr Parra consulted * ECHO and stress test ordered - Pending cardiac clearance, ileostomy reversal surgery rescheduled tentatively for Saturday09/16/17 - NPO saturday night after dinner - d/w Dr. Clark
--- NOTE | 2017-09-11 14:25 | CP.PCM.PN ---
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, risk of central stenosis stable dialysis 09/10 BP stable Objective - Vital Signs/Intake and Output Vital Signs (last 24 hours): Temp Pulse Resp BP Pulse Ox 98.4 F 96 H 20 159/83 H 99 09/11/17 08:39 09/11/17 08:39 09/11/17 08:39 09/11/17 08:39 09/11/17 08:39 - Medications Medications: Current Medications Aspirin (Ecotrin) 81 mg PO DAILY [facility] Last Admin: 09/11/17 12:38 Dose: Not Given Carvedilol (Coreg) 3.125 mg PO BID [facility] Last Admin: 09/11/17 11:15 Dose: Not Given Famotidine (Pepcid) 20 mg PO DAILY [facility] Last Admin: 09/11/17 12:39 Dose: 20 mg Gabapentin (Neurontin) 100 mg PO Q12 [facility] Last Admin: 09/11/17 12:39 Dose: 100 mg Heparin Sodium (Porcine) (Heparin) 5,000 units SC Q12 [facility] Last Admin: 09/10/17 22:00 Dose: 5,000 units Midodrine (Proamatine) 5 mg PO TID [facility] Last Admin: 09/11/17 11:00 Dose: Not Given Rosuvastatin Calcium (Crestor) 10 mg PO HS [facility] Last Admin: 09/10/17 22:00 Dose: 10 mg Vitamin B Complex/Vit C/Folic Acid (Nephro-Cony) 1 tab PO DAILY [facility] Last Admin: 09/11/17 12:39 Dose: 1 tab - Labs Labs: 09/11/17 07:30 09/11/17 07:30 PT 11.1 SECONDS (9.7-12.2) 09/09/17 11:55 INR 1.0 09/09/17 11:55 APTT 31 SECONDS (21-34) 09/09/17 11:55 - Constitutional Appears: No Acute Distress, Chronically Ill - Head Exam Head Exam: ATRAUMATIC, NORMAL INSPECTION - Eye Exam Eye Exam: EOMI, Normal appearance - Neck Exam Neck Exam: Normal Inspection. absent: Tenderness - Respiratory Exam Respiratory Exam: Clear to Ausculation Bilateral, NORMAL BREATHING PATTERN - Cardiovascular Exam Cardiovascular Exam: REGULAR RHYTHM, +S1 - GI/Abdominal Exam GI & Abdominal Exam: Soft. absent: Tenderness - Extremities Exam Extremities Exam: Calf Tenderness. absent: Tenderness - Neurological Exam Neurological Exam: Awake, CN II-XII Intact - Skin Skin Exam: Dry, Warm Assessment and Plan (1) PVD (peripheral vascular disease) Status: Acute (2) S/P BKA (below knee amputation) bilateral Status: Acute (3) ESRD (end stage renal disease) Status: Acute (4) Type 2 diabetes mellitus with diabetic nephropathy Status: Acute - Assessment and Plan (Free Text) Plan: stress test now dialysis TTS await colostomy reversal monitor HTN
--- NOTE | 2017-09-11 20:44 | CARD ---
APPROVED REPORT EKG Measurement Heart [id number] MI [id number] <Conclusion> Normal sinus rhythm Normal ECG
[2017-09-11] MEDS: oxyCODONE 5 mg Immediate Release Tab PO PRN (20:47)
--- NOTE | 2017-09-12 05:47 | CP.PCM.CON ---
History of Present Illness - History of Present Illness History of Present Illness: 51 F with known Hx of CAD, PAD, HTN and hyperlipidemia scheduled for elective surgery Given her history recommend stress test and ECHO to evaluate and optimize her clinical status prior to this elective surgery Scheduled for stress test and ECHO in am Past Patient History - Infectious Disease Hx of Infectious Diseases: None - Past Medical History & Family History Past Medical History?: Yes - Past Social History Smoking Status: Never Smoked - CARDIAC Hx Congestive Heart Failure: Yes Hx Hypercholesterolemia: Yes Hx Hypertension: Yes - PULMONARY Hx Bronchitis: Yes - NEUROLOGICAL Hx Neurological Disorder: No - HEENT Hx HEENT Problems: No - RENAL Hx Chronic Kidney Disease: Yes - ENDOCRINE/METABOLIC Hx Endocrine Disorders: Yes Hx Diabetes Mellitus Type 2: Yes - HEMATOLOGICAL/ONCOLOGICAL Hx Anemia: Yes - INTEGUMENTARY Hx Dermatological Problems: Yes Hx Eczema: Yes - MUSCULOSKELETAL/RHEUMATOLOGICAL Hx Falls: No - GASTROINTESTINAL Hx Gastrointestinal Disorders: Yes (INTESTINAL OBSTRUCTION) Hx Ileostomy: Yes Other/Comment: S/P ILEOSTOMY - GENITOURINARY/GYNECOLOGICAL Hx Genitourinary Disorders: Yes (DX: RENAL FAILURE) - PSYCHIATRIC Hx Anxiety: Yes Hx Substance Use: No - SURGICAL HISTORY Hx Surgeries: Yes Hx Amputation: Yes (bilat bka) Hx Section: Yes Hx Eye Surgery: Yes (INSERT "GAS" BUBBLE BOTH EYES) Hx Tubal Ligation: Yes Hx Vascular Access Device: Yes (R SC HD cath) Other/Comment: I&D GROIN; 12/30/14 LAPAROSCOPIC INSERTION PERITONEAL DIALYSIS CATHETE over right chest. 01/14/15 REVISION DONE OF PERITIONEAL DIALYSIS CATH. 08/15/17 0230 - Patient refusing to give further information at this time REMOVAL RETAINED PERITONEAL DIALYSIS CATHETER - ANESTHESIA Hx Anesthesia: Yes Hx Anesthesia Reactions: No Hx Malignant Hyperthermia: No Meds Allergies/Adverse Reactions: Allergies Allergy/AdvReac Type Severity Reaction Status Date / Time shrimp Allergy Severe RASH Verified 08/14/17 19:34 wool Allergy RASH Verified 09/11/17 08:35 - Medications Medications: Current Medications Aspirin (Ecotrin) 81 mg PO DAILY [facility] Last Admin: 09/11/17 15:01 Dose: 81 mg Calcium Acetate (Phoslo) 667 mg PO TID [facility] Last Admin: 09/11/17 17:36 Dose: 667 mg Carvedilol (Coreg) 3.125 mg PO BID [facility] Last Admin: 09/11/17 17:36 Dose: 3.125 mg Famotidine (Pepcid) 20 mg PO DAILY [facility] Last Admin: 09/11/17 12:39 Dose: 20 mg Gabapentin (Neurontin) 100 mg PO Q12 [facility] Last Admin: 09/11/17 21:34 Dose: 100 mg Heparin Sodium (Porcine) (Heparin) 5,000 units SC Q12 [facility] Last Admin: 09/11/17 21:33 Dose: 5,000 units Midodrine (Proamatine) 5 mg PO TID [facility] Last Admin: 09/11/17 17:19 Dose: Not Given Oxycodone HCl (Oxycodone Immediate Release Tab) 5 mg PO DAILY PRN PRN Reason: Pain, severe (8-10) Last Admin: 09/11/17 20:47 Dose: 5 mg Rosuvastatin Calcium (Crestor) 10 mg PO HS [facility] Last Admin: 09/11/17 21:32 Dose: 10 mg Vitamin B Complex/Vit C/Folic Acid (Nephro-Cony) 1 tab PO DAILY [facility] Last Admin: 09/11/17 12:39 Dose: 1 tab Results - Vital Signs Recent Vital Signs: Last Vital Signs Temp 98.1 F 09/11/17 23:50 Pulse 86 09/11/17 23:50 Resp 20 09/11/17 23:50 BP 162/81 H 09/11/17 23:50 Pulse Ox 96 09/11/17 23:50 - Labs Result Diagrams: 09/11/17 07:30 09/11/17 07:30 Labs: Laboratory Results - last 24 hr 09/11/17 09/11/17 09/11/17 07:30 07:30 07:30 WBC 6.2 RBC 3.24 L Hgb 10.7 L Hct 31.8 L MCV 98.3 D MCH 33.0 H MCHC 33.5 RDW 17.0 H Plt Count 156 MPV 9.9 Sodium 135 Potassium 4.0 Chloride 93 L Carbon Dioxide 26 Anion Gap 20 BUN 23 H Creatinine 7.0 H Est GFR ( Amer) 8 Est GFR (Non-Af Amer) 6 POC Glucose (mg/dL) Random Glucose 143 H Calcium 9.5 Beta HCG, Quant Blood Type O POSITIVE Antibody Screen Negative 09/11/17 09/11/17 09/11/17 07:30 11:05 16:09 WBC RBC Hgb Hct MCV MCH MCHC RDW Plt Count MPV Sodium Potassium Chloride Carbon Dioxide Anion Gap BUN Creatinine Est GFR ( Amer) Est GFR (Non-Af Amer) POC Glucose (mg/dL) 167 H 237 H Random Glucose Calcium Beta HCG, Quant < 2.39 Blood Type Antibody Screen 09/11/17 21:18 WBC RBC Hgb Hct MCV MCH MCHC RDW Plt Count MPV Sodium Potassium Chloride Carbon Dioxide Anion Gap BUN Creatinine Est GFR ( Amer) Est GFR (Non-Af Amer) POC Glucose (mg/dL) 256 H Random Glucose Calcium Beta HCG, Quant Blood Type Antibody Screen
--- NOTE | 2017-09-12 10:24 | CP.PCM.PN ---
Subjective - Date & Time of Evaluation Date of Evaluation: 09/12/17 Time of Evaluation: 10:22 - Subjective Subjective: At second part stress test BP elevated now for dialysis later await colostomy reversal Objective - Vital Signs/Intake and Output Vital Signs (last 24 hours): Temp Pulse Resp BP Pulse Ox 98.0 F 82 20 168/87 H 96 09/12/17 08:20 09/12/17 08:20 09/12/17 08:20 09/12/17 08:20 09/12/17 08:20 Intake and Output: 09/12/17 09/12/17 06:59 18:59 Intake Total 240 Output Total 600 Balance -360 - Medications Medications: Current Medications Acetaminophen (Tylenol 325mg Tab) 650 mg PO Q6 PRN PRN Reason: Pain, moderate (4-7) Aspirin (Ecotrin) 81 mg PO DAILY [facility] Last Admin: 09/11/17 15:01 Dose: 81 mg Calcium Acetate (Phoslo) 667 mg PO TID [facility] Last Admin: 09/11/17 17:36 Dose: 667 mg Carvedilol (Coreg) 3.125 mg PO BID [facility] Last Admin: 09/11/17 17:36 Dose: 3.125 mg Famotidine (Pepcid) 20 mg PO DAILY [facility] Last Admin: 09/11/17 12:39 Dose: 20 mg Gabapentin (Neurontin) 100 mg PO Q12 [facility] Last Admin: 09/11/17 21:34 Dose: 100 mg Heparin Sodium (Porcine) (Heparin) 5,000 units SC Q12 [facility] Last Admin: 09/11/17 21:33 Dose: 5,000 units Midodrine (Proamatine) 5 mg PO TID [facility] Last Admin: 09/11/17 17:19 Dose: Not Given Oxycodone HCl (Oxycodone Immediate Release Tab) 5 mg PO DAILY PRN PRN Reason: Pain, severe (8-10) Last Admin: 09/11/17 20:47 Dose: 5 mg Rosuvastatin Calcium (Crestor) 10 mg PO HS [facility] Last Admin: 09/11/17 21:32 Dose: 10 mg Vitamin B Complex/Vit C/Folic Acid (Nephro-Cony) 1 tab PO DAILY [facility] Last Admin: 09/11/17 12:39 Dose: 1 tab - Labs Labs: 09/11/17 07:30 09/11/17 07:30 PT 11.1 SECONDS (9.7-12.2) 09/09/17 11:55 INR 1.0 09/09/17 11:55 APTT 31 SECONDS (21-34) 09/09/17 11:55 - Constitutional Appears: No Acute Distress, Chronically Ill - Head Exam Head Exam: ATRAUMATIC, NORMAL INSPECTION - Eye Exam Eye Exam: EOMI, Normal appearance - Neck Exam Neck Exam: Normal Inspection. absent: Tenderness - Respiratory Exam Respiratory Exam: Clear to Ausculation Bilateral, NORMAL BREATHING PATTERN - Cardiovascular Exam Cardiovascular Exam: REGULAR RHYTHM, +S1 - GI/Abdominal Exam GI & Abdominal Exam: Soft. absent: Tenderness - Extremities Exam Extremities Exam: Normal Inspection. absent: Tenderness - Neurological Exam Neurological Exam: Alert, CN II-XII Intact - Skin Skin Exam: Dry, Warm Assessment and Plan (1) PVD (peripheral vascular disease) Status: Acute (2) S/P BKA (below knee amputation) bilateral Status: Acute (3) ESRD (end stage renal disease) Status: Acute (4) Type 2 diabetes mellitus with diabetic nephropathy Status: Acute - Assessment and Plan (Free Text) Plan: stop midodrine dialysis later await colostomy reversal
[2017-09-12] MEDS: Multivitamin Vitamin B Complex (Nephro-Vite) Tab PO SCH (12:25)
[2017-09-12] MEDS: oxyCODONE 5 mg Immediate Release Tab PO PRN (21:57)
--- NOTE | 2017-09-12 22:51 | CARD ---
APPROVED REPORT Protocol: LEXISCAN Test Type: LEXISCAN STRESS Test Indications: PRE OP Medications: LIST Target HR: 170 bpm Resting ECG: normal Resting Heart Rate: 83 bpm Resting Blood Pressure: 132/80mmHg submaximum (85%): 145 bpm TEST SUMMARY PREINFSNHYPERV.58:[id number]/80.0. INFUSIONDOSE 100:300.00.01.083/.0. KBAMOGHYU10:[id number]/80.0. PROCEDURE Pharmacologic stress testing was performed using 0.4mg per 5ml of regadenoson given intravenously over 7-10 seconds. POST EXERCISE Reason for Termination: Protocol Completed Target HR: No Max HR: 83 bpm 52% of Maximum Predicted HR: 170 bpm Exercise duration: 00:30 min:sec, 0 Stage Exercise capacity: 1.0METs Max Blood Pressure: 132/80mmHg Blood Pressure response to exercise: normal resting BP - appropriate response Heart Rate response to exercise: appropriate Chest Pain: No, none Angina index: 0 Arrhythmia: No, none ST Change: No, none Deviation: 0 mm INTERPRETATION Stress EKG Conclusion: Nuclear report to follow EXAM: Myocardial Perfusion REST/STRESS Imaging Protocol The imaging protocol used to acquire images was Rest Tc-99m/stress Tc-99m 2 days Rest Spect myocardial perfusion imaging was performed in supine position 45 minutes following the injection of 25.0. mCi of Tc-99 Myoview. Gated Stress Spect was performed 45 minutes after intravenous 32.5 mCi Tc-99 Myoview injection. The images were gated to evaluate regional wall motion and calculate ventricular ejection fraction.Images were reconstructed using backfilter projection method in short horizontal and verticle long axis. Spect slices were generated. RESTING DATA EDV52.08myNU3.70L/min ESV17.00mlMyocardial Mass96.00g Av. Heart Rate77.00bpm EF67.00% STRESS DATA EDV60.15cgEI3.90L/min ESV22.00mlMyocardial Nfdm955.00g EF63.00% Regional WT score at stress:3.00 Regional WM score at stress:0.00 Summed WT score at stress:37.00 Av. Heart Rate75.00bpmSummed WM score at stress:8.00 LV Perf. Quant 17 Seg. SSS3.00 17 Seg. SRS0.00 17 Seg. SDS3.00 Stress Defect Extent (% LAD)0.00Rest Defect Extent (% LAD)0.00Rev. Defect Extent (% LAD)0.00 Stress Defect Extent (% LCX)27.50Rest Defect Extent (% LCX)0.00Rev. Defect Extent (% LCX)21.30 Stress Defect Extent (% RCA)0.00Rest Defect Extent (% RCA)0.00Rev. Defect Extent (% RCA)0.00 Stress Defect Extent (% TRACEY)4.80Rest Defect Extent (% TRACEY)0.00Rev. Defect Extent (% TRACEY)3.70 Other Information Quality:Good IMPRESSION Normal Myocardial Perfusion exercise stress study Left Ventricle LV Function:Left ventricle systolic function is normal. The Ejection Fraction is 65-70%. Metabolism/Perfusion There are no perfusion/metabolism defects. Conclusion 1. Normal Lexiscan Nuclear stress test. Normal EF
--- NOTE | 2017-09-12 23:15 | CP.PCM.PN ---
Subjective - Date & Time of Evaluation Date of Evaluation: 09/12/17 Time of Evaluation: 18:20 - Subjective Subjective: Patient s/p stress test Normal stress test. No stress induced ischemia ECHO: Normal EF and no clinically significant valvular issues Hemodynamically stable No cardiac arrhythmias Patient cleared for Colostomy reversal surgery with moderate cardiac risk Thank you Will follow Objective - Vital Signs/Intake and Output Vital Signs (last 24 hours): Temp Pulse Resp BP Pulse Ox 97.2 F L 87 20 178/83 H 100 09/12/17 18:10 09/12/17 18:10 09/12/17 18:10 09/12/17 18:10 09/12/17 18:10 Intake and Output: 09/12/17 09/13/17 18:59 06:59 Intake Total 400 Balance 400 - Medications Medications: Current Medications Acetaminophen (Tylenol 325mg Tab) 650 mg PO Q6 PRN PRN Reason: Pain, moderate (4-7) Aspirin (Ecotrin) 81 mg PO DAILY [facility] Last Admin: 09/12/17 12:25 Dose: 81 mg Calcium Acetate (Phoslo) 667 mg PO TID [facility] Last Admin: 09/12/17 18:36 Dose: 667 mg Carvedilol (Coreg) 3.125 mg PO BID [facility] Last Admin: 09/12/17 18:36 Dose: 3.125 mg Famotidine (Pepcid) 20 mg PO DAILY [facility] Last Admin: 09/12/17 12:25 Dose: 20 mg Gabapentin (Neurontin) 100 mg PO Q12 [facility] Last Admin: 09/12/17 21:57 Dose: 100 mg Heparin Sodium (Porcine) (Heparin) 5,000 units SC Q12 [facility] Last Admin: 09/12/17 21:58 Dose: 5,000 units Oxycodone HCl (Oxycodone Immediate Release Tab) 5 mg PO DAILY PRN PRN Reason: Pain, severe (8-10) Last Admin: 09/12/17 21:57 Dose: 5 mg Rosuvastatin Calcium (Crestor) 10 mg PO HS [facility] Last Admin: 09/12/17 21:57 Dose: 10 mg Vitamin B Complex/Vit C/Folic Acid (Nephro-Cony) 1 tab PO DAILY [facility] Last Admin: 09/12/17 12:25 Dose: 1 tab - Labs Labs: 09/11/17 07:30 09/11/17 07:30 PT 11.1 SECONDS (9.7-12.2) 09/09/17 11:55 INR 1.0 09/09/17 11:55 APTT 31 SECONDS (21-34) 09/09/17 11:55
[2017-09-13] MEDS: (Novolin R) Insulin Human Regular 100 units/ml vial SC SCH ×4 (08:34→21:42)
[2017-09-13] MEDS: Multivitamin Vitamin B Complex (Nephro-Vite) Tab PO SCH (10:18)
--- NOTE | 2017-09-13 12:35 | CP.PCM.PN ---
Subjective - Date & Time of Evaluation Date of Evaluation: 09/13/17 Time of Evaluation: 12:32 - Subjective Subjective: s/p stress test- normal study s/p dialysis 09/12 alert, eating ok right hand painful no SOB, n, v, diarrhea, CPs Objective - Vital Signs/Intake and Output Vital Signs (last 24 hours): Temp Pulse Resp BP Pulse Ox 98.4 F 89 20 151/74 H 99 09/13/17 08:17 09/13/17 10:17 09/13/17 08:17 09/13/17 10:17 09/13/17 08:17 Intake and Output: 09/13/17 09/13/17 06:59 18:59 Intake Total 240 Output Total 200 Balance 40 - Medications Medications: Current Medications Acetaminophen (Tylenol 325mg Tab) 650 mg PO Q6 PRN PRN Reason: Pain, moderate (4-7) Last Admin: 09/13/17 06:07 Dose: 650 mg Aspirin (Ecotrin) 81 mg PO DAILY [facility] Last Admin: 09/13/17 10:18 Dose: 81 mg Calcium Acetate (Phoslo) 667 mg PO TID [facility] Last Admin: 09/13/17 10:18 Dose: 667 mg Carvedilol (Coreg) 3.125 mg PO BID [facility] Last Admin: 09/13/17 10:18 Dose: 3.125 mg Famotidine (Pepcid) 20 mg PO DAILY [facility] Last Admin: 09/13/17 10:18 Dose: 20 mg Gabapentin (Neurontin) 100 mg PO Q12 [facility] Last Admin: 09/13/17 10:18 Dose: 100 mg Heparin Sodium (Porcine) (Heparin) 5,000 units SC Q12 [facility] Last Admin: 09/13/17 10:18 Dose: 5,000 units Insulin Glargine (Lantus) 15 unit SC HS [facility] Insulin Human Regular (Novolin R) 0 unit SC ACHS [facility] PRN Reason: Protocol Last Admin: 09/13/17 08:34 Dose: 10 unit Oxycodone HCl (Oxycodone Immediate Release Tab) 5 mg PO DAILY PRN PRN Reason: Pain, severe (8-10) Last Admin: 09/12/17 21:57 Dose: 5 mg Rosuvastatin Calcium (Crestor) 10 mg PO HS [facility] Last Admin: 09/12/17 21:57 Dose: 10 mg Vitamin B Complex/Vit C/Folic Acid (Nephro-Cony) 1 tab PO DAILY [facility] Last Admin: 09/13/17 10:18 Dose: 1 tab - Labs Labs: 09/11/17 07:30 09/11/17 07:30 PT 11.1 SECONDS (9.7-12.2) 09/09/17 11:55 INR 1.0 09/09/17 11:55 APTT 31 SECONDS (21-34) 09/09/17 11:55 - Constitutional Appears: No Acute Distress, Chronically Ill - Head Exam Head Exam: ATRAUMATIC, NORMAL INSPECTION - Eye Exam Eye Exam: EOMI, Normal appearance - Neck Exam Neck Exam: Normal Inspection. absent: Tenderness - Respiratory Exam Respiratory Exam: Clear to Ausculation Bilateral, NORMAL BREATHING PATTERN - Cardiovascular Exam Cardiovascular Exam: REGULAR RHYTHM, +S1 - Extremities Exam Extremities Exam: Calf Tenderness, Tenderness - Neurological Exam Neurological Exam: Alert, CN II-XII Intact - Skin Skin Exam: Dry, Warm Assessment and Plan (1) PVD (peripheral vascular disease) Status: Acute (2) S/P BKA (below knee amputation) bilateral Status: Acute (3) ESRD (end stage renal disease) Status: Acute (4) Type 2 diabetes mellitus with diabetic nephropathy Status: Acute - Assessment and Plan (Free Text) Plan: increase gabapentin dose vascular to evaluate right hand dialysis TTS recheck phos, labs
[2017-09-13] MEDS: (Lantus) Insulin Glargine, Recombinant SC SCH (21:49)
[2017-09-13] MEDS: oxyCODONE 5 mg Immediate Release Tab PO PRN (21:56)
[2017-09-14] MEDS: Multivitamin Vitamin B Complex (Nephro-Vite) Tab PO SCH (09:25)
[2017-09-14] MEDS: (Novolin R) Insulin Human Regular 100 units/ml vial SC SCH ×5 (09:26→22:12)
--- NOTE | 2017-09-14 10:08 | CP.PCM.PN ---
Subjective - Date & Time of Evaluation Date of Evaluation: 09/14/17 Time of Evaluation: 10:06 - Subjective Subjective: comfortable in bed no complaints afebrile ROS0 10 point ROS negative Objective - Vital Signs/Intake and Output Vital Signs (last 24 hours): Temp Pulse Resp BP Pulse Ox 98 F 85 20 191/75 H 98 09/14/17 07:00 09/14/17 09:31 09/14/17 07:00 09/14/17 09:31 09/14/17 07:00 - Medications Medications: Current Medications Acetaminophen (Tylenol 325mg Tab) 650 mg PO Q6 PRN PRN Reason: Pain, moderate (4-7) Last Admin: 09/13/17 06:07 Dose: 650 mg Aspirin (Ecotrin) 81 mg PO DAILY [facility] Last Admin: 09/14/17 09:26 Dose: 81 mg Calcium Acetate (Phoslo) 667 mg PO TIDCC [facility] Last Admin: 09/14/17 08:20 Dose: 667 mg Carvedilol (Coreg) 3.125 mg PO BID [facility] Last Admin: 09/14/17 09:25 Dose: 3.125 mg Famotidine (Pepcid) 20 mg PO DAILY [facility] Last Admin: 09/14/17 09:26 Dose: 20 mg Gabapentin (Neurontin) 200 mg PO Q12 [facility] Last Admin: 09/14/17 09:26 Dose: 200 mg Heparin Sodium (Porcine) (Heparin) 5,000 units SC Q12 [facility] Last Admin: 09/14/17 09:26 Dose: 5,000 units Insulin Glargine (Lantus) 15 unit SC [facility] Last Admin: 09/13/17 21:49 Dose: 15 u Insulin Human Regular (Novolin R) 0 unit SC [facility] PRN Reason: Protocol Last Admin: 09/14/17 09:26 Dose: 3 unit Oxycodone HCl (Oxycodone Immediate Release Tab) 5 mg PO DAILY PRN PRN Reason: Pain, severe (8-10) Last Admin: 09/13/17 21:56 Dose: 5 mg Rosuvastatin Calcium (Crestor) 10 mg PO [facility] Last Admin: 09/13/17 21:48 Dose: 10 mg Tramadol HCl (Ultram) 50 mg PO TID PRN PRN Reason: Pain, severe (8-10) Last Admin: 09/14/17 01:43 Dose: 50 mg Vitamin B Complex/Vit C/Folic Acid (Nephro-Cony) 1 tab PO DAILY [facility] Last Admin: 09/14/17 09:25 Dose: 1 tab - Labs Labs: 09/11/17 07:30 09/11/17 07:30 PT 11.1 SECONDS (9.7-12.2) 09/09/17 11:55 INR 1.0 09/09/17 11:55 APTT 31 SECONDS (21-34) 09/09/17 11:55 - Constitutional Appears: Non-toxic, Chronically Ill - Head Exam Head Exam: ATRAUMATIC, NORMOCEPHALIC - Eye Exam Eye Exam: EOMI, PERRL - ENT Exam ENT Exam: Mucous Membranes Moist - Neck Exam Neck Exam: absent: Lymphadenopathy - Respiratory Exam Respiratory Exam: Clear to Ausculation Bilateral. absent: Rhonchi, Wheezes - Cardiovascular Exam Cardiovascular Exam: REGULAR RHYTHM, +S1, +S2 - GI/Abdominal Exam GI & Abdominal Exam: Soft. absent: Tenderness Additional comments: colostomy RLQ - Extremities Exam Additional comments: b/l BKA - Neurological Exam Neurological Exam: Alert, Awake, Oriented x3 - Psychiatric Exam Psychiatric exam: Normal Affect, Normal Mood - Skin Skin Exam: Dry, Intact Assessment and Plan (1) ESRD (end stage renal disease) Status: Acute (2) Hypotension Status: Acute (3) PVD (peripheral vascular disease) Status: Acute (4) S/P BKA (below knee amputation) bilateral Status: Acute (5) Anemia Status: Acute (6) Anxiety Status: Acute (7) Diabetes mellitus Status: Acute - Assessment and Plan (Free Text) Plan: HD today for colostomy reversal on saturday
[2017-09-14 14:42] LABS: ALB/GLOB RATIO 1.1 (1.0-2.1); ALBUMIN 3.9 g/dL (3.5-5.0)
[2017-09-14] MEDS: oxyCODONE 5 mg Immediate Release Tab PO PRN (22:10)
[2017-09-14] MEDS: (Lantus) Insulin Glargine, Recombinant SC SCH (22:12)
--- NOTE | 2017-09-15 06:34 | CP.PCM.PN ---
Subjective - Date & Time of Evaluation Date of Evaluation: 09/14/17 Time of Evaluation: 16:05 - Subjective Subjective: Patient seen and evaluated No cardiac complaints ECHO: Normal EF and novalvular issues Stress test: Normal Cleared for surgery with moderate cardaic risk Surgery on Saturday Objective - Vital Signs/Intake and Output Vital Signs (last 24 hours): Temp Pulse Resp BP Pulse Ox 98.2 F 90 20 132/91 H 97 09/14/17 23:40 09/14/17 23:40 09/14/17 23:40 09/14/17 23:40 09/14/17 23:40 - Medications Medications: Current Medications Acetaminophen (Tylenol 325mg Tab) 650 mg PO Q6 PRN PRN Reason: Pain, moderate (4-7) Last Admin: 09/13/17 06:07 Dose: 650 mg Aspirin (Ecotrin) 81 mg PO DAILY [facility] Last Admin: 09/14/17 09:26 Dose: 81 mg Calcium Acetate (Phoslo) 667 mg PO TIDCC [facility] Last Admin: 09/14/17 18:23 Dose: 667 mg Carvedilol (Coreg) 3.125 mg PO BID [facility] Last Admin: 09/14/17 18:23 Dose: 3.125 mg Famotidine (Pepcid) 20 mg PO DAILY [facility] Last Admin: 09/14/17 09:26 Dose: 20 mg Gabapentin (Neurontin) 200 mg PO Q12 [facility] Last Admin: 09/14/17 22:11 Dose: 200 mg Heparin Sodium (Porcine) (Heparin) 5,000 units SC Q12 [facility] Last Admin: 09/14/17 22:11 Dose: 5,000 units Insulin Glargine (Lantus) 15 unit SC [facility] Last Admin: 09/14/17 22:12 Dose: 15 u Insulin Human Regular (Novolin R) 0 unit SC [facility] PRN Reason: Protocol Last Admin: 09/14/17 22:12 Dose: Not Given Oxycodone HCl (Oxycodone Immediate Release Tab) 5 mg PO DAILY PRN PRN Reason: Pain, severe (8-10) Last Admin: 09/14/17 22:10 Dose: 5 mg Rosuvastatin Calcium (Crestor) 10 mg PO [facility] Last Admin: 09/14/17 22:11 Dose: 10 mg Tramadol HCl (Ultram) 50 mg PO TID PRN PRN Reason: Pain, severe (8-10) Last Admin: 09/15/17 00:07 Dose: 50 mg Vitamin B Complex/Vit C/Folic Acid (Nephro-Cony) 1 tab PO DAILY [facility] Last Admin: 09/14/17 09:25 Dose: 1 tab - Labs Labs: 09/11/17 07:30 09/14/17 14:10 PT 11.1 SECONDS (9.7-12.2) 09/09/17 11:55 INR 1.0 09/09/17 11:55 APTT 31 SECONDS (21-34) 09/09/17 11:55
--- NOTE | 2017-09-15 07:29 | CP.PCM.PN ---
Subjective - Date & Time of Evaluation Date of Evaluation: 09/15/17 Time of Evaluation: 07:26 - Subjective Subjective: General Surgery - Dr. Clark Pt S&E. JEFERSON. Pt complains of R hand pain in the 3rd/4th digits and fungal infection on the nails. She denies any other complaints. Ulnar and Radial Pulses dopplered with good flow. Pt aware of plan for surgery tomorrow for ileostomy reversal. Objective - Vital Signs/Intake and Output Vital Signs (last 24 hours): Temp Pulse Resp BP Pulse Ox 98.2 F 90 20 132/91 H 97 09/14/17 23:40 09/14/17 23:40 09/14/17 23:40 09/14/17 23:40 09/14/17 23:40 - Medications Medications: Current Medications Acetaminophen (Tylenol 325mg Tab) 650 mg PO Q6 PRN PRN Reason: Pain, moderate (4-7) Last Admin: 09/13/17 06:07 Dose: 650 mg Aspirin (Ecotrin) 81 mg PO DAILY [facility] Last Admin: 09/14/17 09:26 Dose: 81 mg Calcium Acetate (Phoslo) 667 mg PO TIDCC [facility] Last Admin: 09/14/17 18:23 Dose: 667 mg Carvedilol (Coreg) 3.125 mg PO BID [facility] Last Admin: 09/14/17 18:23 Dose: 3.125 mg Famotidine (Pepcid) 20 mg PO DAILY [facility] Last Admin: 09/14/17 09:26 Dose: 20 mg Gabapentin (Neurontin) 200 mg PO Q12 [facility] Last Admin: 09/14/17 22:11 Dose: 200 mg Heparin Sodium (Porcine) (Heparin) 5,000 units SC Q12 [facility] Last Admin: 09/14/17 22:11 Dose: 5,000 units Insulin Glargine (Lantus) 15 unit SC HS [facility] Last Admin: 09/14/17 22:12 Dose: 15 u Insulin Human Regular (Novolin R) 0 unit SC ACHS [facility] PRN Reason: Protocol Last Admin: 09/14/17 22:12 Dose: Not Given Oxycodone HCl (Oxycodone Immediate Release Tab) 5 mg PO DAILY PRN PRN Reason: Pain, severe (8-10) Last Admin: 09/14/17 22:10 Dose: 5 mg Rosuvastatin Calcium (Crestor) 10 mg PO HS [facility] Last Admin: 09/14/17 22:11 Dose: 10 mg Tramadol HCl (Ultram) 50 mg PO TID PRN PRN Reason: Pain, severe (8-10) Last Admin: 09/15/17 00:07 Dose: 50 mg Vitamin B Complex/Vit C/Folic Acid (Nephro-Cony) 1 tab PO DAILY [facility] Last Admin: 09/14/17 09:25 Dose: 1 tab - Labs Labs: 09/11/17 07:30 09/14/17 14:10 PT 11.1 SECONDS (9.7-12.2) 09/09/17 11:55 INR 1.0 09/09/17 11:55 APTT 31 SECONDS (21-34) 09/09/17 11:55 - Constitutional Appears: No Acute Distress - Head Exam Head Exam: ATRAUMATIC, NORMAL INSPECTION, NORMOCEPHALIC - Respiratory Exam Respiratory Exam: NORMAL BREATHING PATTERN. absent: Respiratory Distress - Extremities Exam Extremities Exam: Tenderness Additional comments: swelling and tenderness at tip of digits 3/4, Good dopplerable pulses in the ulnar and radial - Neurological Exam Neurological Exam: Alert, Oriented x3 - Skin Skin Exam: Dry, Intact Assessment and Plan - Assessment and Plan (Free Text) Assessment: 51F with s/p subtotal colectomy, for ileostomy for reversal tomorrow Plan: -Appreciate Cardiac Clearance, Dr. Parra -Plan for OR tomorrow AM for ileostomy reversal -NPO after midnight tonight -For Right Hand: Continue Warm saline soaks BID, Keep hand elevated when resting -For Onychomycosis of Right 3rd/4th Digits: Clotrimazole cream BID DW Dr Clark
[2017-09-15] MEDS: (Novolin R) Insulin Human Regular 100 units/ml vial SC SCH ×4 (08:03→21:26)
[2017-09-15] MEDS: Multivitamin Vitamin B Complex (Nephro-Vite) Tab PO SCH (09:14)
[2017-09-15] MEDS: Clotrimazole/Betamethasone Cream(15 gm) TOP SCH ×2 (09:18→18:09)
[2017-09-15] MEDS ORDERED: POLYETHYLENE GLYCOL 3350 17 GM/Dose PACKET PO ONE ×2 (10:44→13:00)
--- NOTE | 2017-09-15 11:27 | CARD ---
APPROVED REPORT EXAM: Two-dimensional and M-mode echocardiogram with Doppler and color Doppler. INDICATION Pre-Op Congestive Heart Failure RISK FACTORS Hypertension Diabetes 2D DIMENSIONS IVSd1.5 (0.7-1.1cm)LVDd3.5 (3.9-5.9cm) PWd1.2 (0.7-1.1cm)LVDs1.8 (2.5-4.0cm) FS (%) 47.9 %LVEF (%)70.0 (>50%) M-Mode DIMENSIONS RVDd1.80 (2.1-3.2cm)Left Atrium (MM)2.98 (2.5-4.0cm) IVSd1.70 (0.7-1.1cm)Aortic Root2.50 (2.2-3.7cm) LVDd3.92 (4.0-5.6cm)Aortic Cusp Exc.1.75 (1.5-2.0cm) PWd1.42 (0.7-1.1cm)FS (%) 47 % LVDs2.08 (2.0-3.8cm)LVEF (%)79 (>50%) Mitral Valve MV E Igpvmyof79.5cm/sMV A Xtwmmzoa36.0cm/sE/A ratio1.1 TDI E/Lateral E'0.0E/Medial E'0.0 Tricuspid Valve TR Peak [id number]/sTR Peak [id number] <Conclusion> Left ventricle: thickness: upper limit of normal; size: normal; overall ejection fraction: 65%: diastolic filling pressures: elevated Mitral valve: annulus: normal: leaflets: normal: excursion: normal; no significant trans-mitral gradient:mild incompetence: left atrium: normal Aortic valve: leaflets: normal: excursion: normal; no significant trans-aortic gradient: No significant incompetence: aortic root: normal Right sided Structures: Pulmonary valve: normal; no significant incompetence; Tricuspid valve: normal; no significant incompetence: Intra-cardiac hemodynamics: pulmonary systolic pressures: normal; central venous pressures: normal Trace pericardial effusion
[2017-09-15] MEDS: oxyCODONE 5 mg Immediate Release Tab PO PRN (22:21)
[2017-09-15] MEDS: (Lantus) Insulin Glargine, Recombinant SC SCH (22:22)
[2017-09-16 07:20] LABS: HEMOGLOBIN 10.2 g/dL (11.0-16.0); MEAN CELL VOLUME 98.2 fL (81.0-99.0); MEAN CORPUSCULAR HEMOGLOBIN 32.9 pg (27.0-31.0); MEAN CORPUSCULAR HGB CONC 33.5 g/dL (33.0-37.0); MEAN PLATELET VOLUME 9.6 fL (7.2-11.7); RBC 3.12 Mil/uL (3.80-5.20); RED CELL DISTRIBUTION WIDTH 16.2 % (11.5-14.5); WHITE BLOOD COUNT 8.5 K/uL (4.8-10.8)
[2017-09-16 07:29] LABS: INR 0.9; PROTHROMBIN TIME 10.1 SECONDS (9.7-12.2)
[2017-09-16] MEDS ORDERED: Propofol 10 mg/ml Inj (20 ML) ONE (07:42)
[2017-09-16] MEDS ORDERED: Midazolam 2 MG/2 ML VIAL ONE (07:43)
[2017-09-16] MEDS ORDERED: Sodium Chloride 0.9% 500 ML IV ONE ×2 (07:45→09:45)
[2017-09-16 07:48] LABS: CALCIUM 10.4 mg/dl (8.6-10.4)
[2017-09-16] MEDS ORDERED: ceFAZolin 1 gm in NS 1 GM/100 ML BAG IVPB ONE (07:56)
[2017-09-16] MEDS ORDERED: metroNIDAZOLE IV 500 mg/100 ml 500 MG/100 ML BAG ONE (07:56)
[2017-09-16] MEDS ORDERED: Neostigmine Methylsulfate 3mg/3ml Syringe IV ONE (09:58)
--- NOTE | 2017-09-16 10:42 | PCM.SURG1 ---
Surgeon's Initial Post Op Note - Surgeon's Notes Surgeon: Dr. Eduardo ACEVEDO Svp Programmatic Tv: Dr. Oh PGY1, Wade Parada MS3 Pre-Operative Diagnosis: Ileostomy Operative Findings: see op report Post-Operative Diagnosis: ileostomy Operation Performed: closure of ileostomy with ileo-sigmoid anastomosis and small bowel resection and excision of abdominal wall nodule. Specimen/Specimens Removed: ileostomy stoma, peritoneal nodule Estimated Blood Loss: EBL {In ML}: 150 Blood Products Given: N/A Drains Used: Roel Post-Op Condition: Good Date of Surgery/Procedure: 09/16/17 Time of Surgery/Procedure: 10:42
[2017-09-16] MEDS: HYDROmorphone 0.5 mg/0.5 ml ISec IVP PRN ×2 (10:45→10:58)
[2017-09-16] MEDS ORDERED: HYDROmorphone 0.5 mg/0.5 ml ISec IVP PRN (12:26)
--- NOTE | 2017-09-16 14:15 | CP.PCM.PN ---
Subjective - Date & Time of Evaluation Date of Evaluation: 09/16/17 Time of Evaluation: 14:12 - Subjective Subjective: s/p ileostomy reversal seen post-op pt not arousable yet BP stable no complications noted Objective - Vital Signs/Intake and Output Vital Signs (last 24 hours): Temp Pulse Resp BP Pulse Ox 98.7 F 93 H 12 122/52 L 100 09/16/17 12:30 09/16/17 13:30 09/16/17 13:30 09/16/17 13:30 09/16/17 13:30 Intake and Output: 09/16/17 09/16/17 06:59 18:59 Output Total 65 Balance -65 - Medications Medications: Current Medications Acetaminophen (Tylenol 325mg Tab) 650 mg PO Q6 PRN PRN Reason: Pain, moderate (4-7) Last Admin: 09/13/17 06:07 Dose: 650 mg Aspirin (Ecotrin) 81 mg PO DAILY [facility] Last Admin: 09/15/17 09:08 Dose: 81 mg Betamethasone/Clotrimazole (Lotrisone) 0 gm TOP BID [facility] Last Admin: 09/15/17 18:09 Dose: 1 applic Calcium Acetate (Phoslo) 667 mg PO TIDCC [facility] Last Admin: 09/15/17 18:09 Dose: 667 mg Carvedilol (Coreg) 3.125 mg PO BID [facility] Last Admin: 09/15/17 18:18 Dose: 3.125 mg Famotidine (Pepcid) 20 mg PO DAILY [facility] Last Admin: 09/15/17 09:08 Dose: 20 mg Gabapentin (Neurontin) 200 mg PO Q12 [facility] Last Admin: 09/15/17 22:21 Dose: 200 mg Heparin Sodium (Porcine) (Heparin) 5,000 units SC Q12 [facility] Last Admin: 09/15/17 22:21 Dose: 5,000 units Hydromorphone HCl (Dilaudid) 0.5 mg IVP Q6H PRN PRN Reason: Pain, severe (8-10) Cefazolin Sodium 500 mg/ (Sodium Chloride) 100 mls @ 100 mls/hr IVPB Q8H [facility] PRN Reason: Protocol Stop: 09/17/17 11:31 Metronidazole (Flagyl) 500 mg in 100 mls @ 100 mls/hr IVPB Q8 [facility] PRN Reason: Protocol Stop: 09/17/17 14:01 Acetaminophen (Ofirmev) 100 mls @ 400 mls/hr IV Q6 PRN PRN Reason: Pain, moderate (4-7) Stop: 09/17/17 12:26 Insulin Glargine (Lantus) 15 unit SC HS [facility] Last Admin: 09/15/17 22:22 Dose: 15 u Insulin Human Regular (Novolin R) 0 unit SC [facility] PRN Reason: Protocol Last Admin: 09/15/17 21:26 Dose: Not Given Oxycodone HCl (Oxycodone Immediate Release Tab) 5 mg PO DAILY PRN PRN Reason: Pain, severe (8-10) Last Admin: 09/15/17 22:21 Dose: 5 mg Rosuvastatin Calcium (Crestor) 10 mg PO HS [facility] Last Admin: 09/15/17 22:21 Dose: 10 mg Tramadol HCl (Ultram) 50 mg PO TID PRN PRN Reason: Pain, severe (8-10) Last Admin: 09/16/17 01:36 Dose: 50 mg Vitamin B Complex/Vit C/Folic Acid (Nephro-Cony) 1 tab PO DAILY [facility] Last Admin: 09/15/17 09:14 Dose: 1 tab - Labs Labs: 09/16/17 07:10 09/16/17 07:10 PT 10.1 SECONDS (9.7-12.2) 09/16/17 07:10 INR 0.9 09/16/17 07:10 APTT 32 SECONDS (21-34) 09/16/17 07:10 - Constitutional Appears: No Acute Distress, Chronically Ill - Head Exam Head Exam: ATRAUMATIC, NORMAL INSPECTION - Neck Exam Neck Exam: Normal Inspection. absent: Tenderness - Respiratory Exam Respiratory Exam: Clear to Ausculation Bilateral, NORMAL BREATHING PATTERN - Cardiovascular Exam Cardiovascular Exam: REGULAR RHYTHM, +S1 - GI/Abdominal Exam GI & Abdominal Exam: Soft. absent: Tenderness - Extremities Exam Extremities Exam: Normal Inspection. absent: Tenderness - Neurological Exam Neurological Exam: Altered - Skin Skin Exam: Dry, Warm Assessment and Plan (1) PVD (peripheral vascular disease) Status: Acute (2) S/P BKA (below knee amputation) bilateral Status: Acute (3) ESRD (end stage renal disease) Status: Acute (4) Type 2 diabetes mellitus with diabetic nephropathy Status: Acute - Assessment and Plan (Free Text) Plan: monitor post op surgical follow up dialysis TTS IV ABs
[2017-09-16] MEDS: (Novolin R) Insulin Human Regular 100 units/ml vial SC SCH (18:00)
[2017-09-16] MEDS: metroNIDAZOLE IV 500 mg/100 ml 500 MG/100 ML BAG IVPB SCH ×2 (18:22→22:40)
[2017-09-16] MEDS: Clotrimazole/Betamethasone Cream(15 gm) TOP SCH (18:24)
[2017-09-16] MEDS ORDERED: (Novolin R) Insulin Human Regular 100 units/ml vial SC SCH (19:00)
[2017-09-16] MEDS: (Lantus) Insulin Glargine, Recombinant SC SCH (22:00)
--- NOTE | 2017-09-16 22:49 | CP.PCM.PN ---
Subjective - Date & Time of Evaluation Date of Evaluation: 09/16/17 Time of Evaluation: 13:20 - Subjective Subjective: Patient seen and evaluated No cardiac events Hemodynamically stable Objective - Vital Signs/Intake and Output Vital Signs (last 24 hours): Temp Pulse Resp BP Pulse Ox 99 F 107 H 13 122/63 98 09/16/17 20:00 09/16/17 21:50 09/16/17 21:50 09/16/17 21:48 09/16/17 21:50 Intake and Output: 09/16/17 09/17/17 18:59 06:59 Intake Total 200 300 Output Total 120 0 Balance 80 300 - Medications Medications: Current Medications Acetaminophen (Tylenol 325mg Tab) 650 mg PO Q6 PRN PRN Reason: Pain, moderate (4-7) Last Admin: 09/13/17 06:07 Dose: 650 mg Aspirin (Ecotrin) 81 mg PO DAILY [facility] Last Admin: 09/15/17 09:08 Dose: 81 mg Betamethasone/Clotrimazole (Lotrisone) 0 gm TOP BID [facility] Last Admin: 09/16/17 18:24 Dose: 1 applic Calcium Acetate (Phoslo) 667 mg PO TIDCC [facility] Last Admin: 09/16/17 17:00 Dose: Not Given Carvedilol (Coreg) 3.125 mg PO BID [facility] Last Admin: 09/16/17 18:00 Dose: Not Given Famotidine (Pepcid) 20 mg IVP DAILY [facility] Last Admin: 09/16/17 19:50 Dose: 20 mg Gabapentin (Neurontin) 200 mg PO Q12 [facility] Last Admin: 09/16/17 22:00 Dose: Not Given Heparin Sodium (Porcine) (Heparin) 5,000 units SC Q12 [facility] Last Admin: 09/16/17 22:00 Dose: Not Given Hydromorphone HCl (Dilaudid) 0.5 mg IVP Q6H PRN PRN Reason: Pain, severe (8-10) Cefazolin Sodium 500 mg/ (Sodium Chloride) 100 mls @ 100 mls/hr IVPB Q8H [facility] PRN Reason: Protocol Stop: 09/17/17 11:31 Last Admin: 09/16/17 19:50 Dose: 100 mls/hr Metronidazole (Flagyl) 500 mg in 100 mls @ 100 mls/hr IVPB Q8 [facility] PRN Reason: Protocol Stop: 09/17/17 14:01 Last Admin: 09/16/17 22:40 Dose: 100 mls/hr Acetaminophen (Ofirmev) 100 mls @ 400 mls/hr IV Q6 PRN PRN Reason: Pain, moderate (4-7) Stop: 09/17/17 12:26 Last Admin: 09/16/17 21:20 Dose: 400 mls/hr Insulin Glargine (Lantus) 15 unit SC [facility] Last Admin: 09/16/17 22:00 Dose: Not Given Insulin Human Regular (Novolin R) 0 unit SC Q6 [facility] PRN Reason: Protocol Oxycodone HCl (Oxycodone Immediate Release Tab) 5 mg PO DAILY PRN PRN Reason: Pain, severe (8-10) Last Admin: 09/15/17 22:21 Dose: 5 mg Rosuvastatin Calcium (Crestor) 10 mg PO [facility] Last Admin: 09/16/17 22:00 Dose: Not Given Tramadol HCl (Ultram) 50 mg PO TID PRN PRN Reason: Pain, severe (8-10) Last Admin: 09/16/17 01:36 Dose: 50 mg Vitamin B Complex/Vit C/Folic Acid (Nephro-Cony) 1 tab PO DAILY [facility] Last Admin: 09/15/17 09:14 Dose: 1 tab - Labs Labs: 09/16/17 07:10 09/16/17 07:10 PT 10.1 SECONDS (9.7-12.2) 09/16/17 07:10 INR 0.9 09/16/17 07:10 APTT 32 SECONDS (21-34) 09/16/17 07:10 Assessment and Plan - Assessment and Plan (Free Text) Assessment: (1) PVD (peripheral vascular disease) Status: Acute (2) S/P BKA (below knee amputation) bilateral Status: Acute (3) ESRD (end stage renal disease) Status: Acute (4) Type 2 diabetes mellitus with diabetic nephropathy Status: Acute
[2017-09-17] MEDS: (Novolin R) Insulin Human Regular 100 units/ml vial SC SCH ×4 (06:00→17:42)
[2017-09-17] MEDS: metroNIDAZOLE IV 500 mg/100 ml 500 MG/100 ML BAG IVPB SCH ×2 (06:10→16:02)
--- NOTE | 2017-09-17 06:41 | OP ---
PROCEDURE DATE: 09/16/2017 PREOPERATIVE DIAGNOSES: Renal failure and ileostomy, status post colectomy for colitis. POSTOPERATIVE DIAGNOSES: Renal failure and ileostomy, status post colectomy for colitis. PROCEDURE: Closure of ileostomy with ileorectal anastomosis. Small bowel resection. SURGEON: Harman Clark Jr., MD TERMINAL BLOCK ASSEMBLER: Dr. Oh. ANESTHESIOLOGIST: Magaly Breaux CRNA INDICATIONS: The patient is a middle-aged woman with renal insufficiency, bilateral amputation, history of previous intraabdominal surgery from colitis, who presents for closure of the ileostomy. OPERATIVE FINDINGS: The ileostomy was not particularly adhered and was able to be dissected free. The remnant of the rectosigmoid was larger than I expected to be and portions however were still filled with stool which had to be evacuated which led to contamination of the field. The rest of the intraoperative findings were unremarkable. DESCRIPTION OF PROCEDURE: The patient was given general anesthesia and intravenous antibiotics. An incision was made exposing the abdomen. The small bowel was dissected free. The remnant of the colon in the rectosigmoid was identified. The ileostomy in the right lower quadrant was identified. This was divided. The edges were freshened up. We then had to evacuate the formed stool which was still present in the colon and this led to contamination of the field, although it was minimal. After this had been done, we then closed the colotomy and also created the anastomosis at basically the same location. The wounds were then closed with Monocryl sutures and skin with skin clips. Blood loss for the procedure was less than 200 mL. The operation was more difficult due to previous adhesions and the anastomosis carried out was between the small bowel and the remnant of the rectosigmoid. A segment approximately 6 inches at the ileostomy was resected and submitted as specimen in addition to trimmings from the anastomosis. A drain was left for drainage of any fluid. Harman Clark Jr., MD cc: Dr. Rod Lord
[2017-09-17 09:26] LABS: BASO % 0.5 % (0.0-2.0); EOS % 0.2 % (0.0-4.0); HEMOGLOBIN 9.6 g/dL (11.0-16.0); LYMPH % 10.9 % (20.0-40.0); MEAN CELL VOLUME 99.2 fL (81.0-99.0); MEAN CORPUSCULAR HEMOGLOBIN 32.7 pg (27.0-31.0); MEAN PLATELET VOLUME 8.9 fL (7.2-11.7); MONO # 0.7 K/uL (0.0-0.8); NEUT # 7.5 K/uL (1.8-7.0); NEUT % 80.4 % (50.0-75.0); RBC 2.93 Mil/uL (3.80-5.20); RED CELL DISTRIBUTION WIDTH 16.2 % (11.5-14.5); WHITE BLOOD COUNT 9.3 K/uL (4.8-10.8)
[2017-09-17 10:00] LABS: ALBUMIN 3.3 g/dL (3.5-5.0); CALCIUM 9.3 mg/dl (8.6-10.4)
[2017-09-17] MEDS: Multivitamin Vitamin B Complex (Nephro-Vite) Tab PO SCH (10:10)
[2017-09-17] MEDS: Benzocaine/Menthol (Cepacol) Lozenge MT PRN (10:11)
[2017-09-17] MEDS: Clotrimazole/Betamethasone Cream(15 gm) TOP SCH ×2 (10:14→17:08)
--- NOTE | 2017-09-17 10:31 | CP.PCM.PN ---
Subjective - Date & Time of Evaluation Date of Evaluation: 09/17/17 Time of Evaluation: 06:40 - Subjective Subjective: Patient seen and examined at bedside this AM. patient is complaining of pain but denies any nausea, vomiting, fevers, or any other abdominal symtpoms. Patient complains of persistent pain in her fingers. Objective - Vital Signs/Intake and Output Vital Signs (last 24 hours): Temp Pulse Resp BP Pulse Ox 98.7 F 112 H 13 166/68 H 100 09/17/17 08:00 09/17/17 09:01 09/17/17 09:01 09/17/17 09:01 09/17/17 09:01 Intake and Output: 09/17/17 09/17/17 06:59 18:59 Intake Total 500 0 Output Total 110 Balance 390 0 - Medications Medications: Current Medications Acetaminophen (Tylenol 325mg Tab) 650 mg PO Q6 PRN PRN Reason: Pain, moderate (4-7) Last Admin: 09/13/17 06:07 Dose: 650 mg Aspirin (Ecotrin) 81 mg PO DAILY [facility] Last Admin: 09/17/17 10:10 Dose: 81 mg Benzocaine/Menthol (Cepacol Sore Throat) 1 poppy MT Q2H PRN PRN Reason: Sore Throat Last Admin: 09/17/17 10:11 Dose: 1 poppy Betamethasone/Clotrimazole (Lotrisone) 0 gm TOP BID [facility] Last Admin: 09/17/17 10:14 Dose: 1 applic Calcium Acetate (Phoslo) 667 mg PO TIDCC [facility] Last Admin: 09/17/17 08:21 Dose: Not Given Carvedilol (Coreg) 3.125 mg PO BID [facility] Last Admin: 09/17/17 10:13 Dose: Not Given Famotidine (Pepcid) 20 mg IVP DAILY [facility] Last Admin: 09/16/17 19:50 Dose: 20 mg Gabapentin (Neurontin) 200 mg PO Q12 [facility] Last Admin: 09/17/17 10:11 Dose: 200 mg Heparin Sodium (Porcine) (Heparin) 5,000 units SC Q12 [facility] Last Admin: 09/16/17 22:00 Dose: Not Given Hydromorphone HCl (Dilaudid) 0.5 mg IVP Q3H PRN PRN Reason: Pain, severe (8-10) Stop: 09/18/17 09:36 Cefazolin Sodium 500 mg/ (Sodium Chloride) 100 mls @ 100 mls/hr IVPB Q8H [facility] PRN Reason: Protocol Stop: 09/17/17 11:31 Last Admin: 09/17/17 04:30 Dose: 100 mls/hr Metronidazole (Flagyl) 500 mg in 100 mls @ 100 mls/hr IVPB Q8 [facility] PRN Reason: Protocol Stop: 09/17/17 14:01 Last Admin: 09/17/17 06:10 Dose: 100 mls/hr Acetaminophen (Ofirmev) 100 mls @ 400 mls/hr IV Q6 PRN PRN Reason: Pain, moderate (4-7) Stop: 09/17/17 12:26 Last Admin: 09/16/17 21:20 Dose: 400 mls/hr Insulin Glargine (Lantus) 15 unit SC [facility] Last Admin: 09/16/17 22:00 Dose: Not Given Insulin Human Regular (Novolin R) 0 unit SC Q6 [facility] PRN Reason: Protocol Last Admin: 09/17/17 06:00 Dose: Not Given Oxycodone HCl (Oxycodone Immediate Release Tab) 5 mg PO DAILY PRN PRN Reason: Pain, severe (8-10) Last Admin: 09/15/17 22:21 Dose: 5 mg Rosuvastatin Calcium (Crestor) 10 mg PO [facility] Last Admin: 09/16/17 22:00 Dose: Not Given Tramadol HCl (Ultram) 50 mg PO TID PRN PRN Reason: Pain, severe (8-10) Last Admin: 09/16/17 01:36 Dose: 50 mg Vitamin B Complex/Vit C/Folic Acid (Nephro-Cony) 1 tab PO DAILY [facility] Last Admin: 09/17/17 10:10 Dose: 1 tab - Labs Labs: 09/17/17 09:23 09/17/17 09:23 PT 10.1 SECONDS (9.7-12.2) 09/16/17 07:10 INR 0.9 09/16/17 07:10 APTT 32 SECONDS (21-34) 09/16/17 07:10 - Constitutional Appears: Well, Non-toxic, No Acute Distress - Head Exam Head Exam: ATRAUMATIC, NORMOCEPHALIC - Eye Exam Eye Exam: Normal appearance. absent: Conjunctival injection, Scleral icterus - ENT Exam ENT Exam: Mucous Membranes Moist, Normal Oropharynx - Respiratory Exam Respiratory Exam: NORMAL BREATHING PATTERN. absent: Accessory Muscle Use, Respiratory Distress - Cardiovascular Exam Cardiovascular Exam: Tachycardia, RRR - GI/Abdominal Exam GI & Abdominal Exam: Soft, Tenderness (Nara-incisional pain). absent: Distended , Rebound Additional comments: dressings C/D/I - Neurological Exam Neurological Exam: Alert, Awake, Oriented x3 - Psychiatric Exam Psychiatric exam: Normal Affect, Normal Mood - Skin Skin Exam: Dry, Intact, Normal Color, Warm Assessment and Plan - Assessment and Plan (Free Text) Assessment: 51F POD#1 s/p reversal of ileostomy Plan: -continue NPO except meds and NGT to low continuous suction until patient has bowel function -Continue to monitor strict intake and output -Antibiotics to be discontinued after 24 hours. -PRN pain and nausea medication -Follow up doppler of the upper extremities to evaluate for vascular compromise Seen and discussed with Dr. Eduardo Dubon, PGY2
--- NOTE | 2017-09-17 12:52 | CP.PCM.PN ---
Subjective - Date & Time of Evaluation Date of Evaluation: 09/17/17 Time of Evaluation: 12:49 - Subjective Subjective: seen and examined s/p ileostomy reversal NGT in place ongoing hd, uf 0.5L tolerating well during interview suddenly started crying loudly c/o rt arm pain unable to obtain further ros Objective - Vital Signs/Intake and Output Vital Signs (last 24 hours): Temp Pulse Resp BP Pulse Ox 97.3 F L 109 H 12 119/62 100 09/17/17 12:00 09/17/17 12:45 09/17/17 12:14 09/17/17 12:45 09/17/17 12:14 Intake and Output: 09/17/17 09/17/17 06:59 18:59 Intake Total 500 150 Output Total 110 Balance 390 150 - Medications Medications: Current Medications Acetaminophen (Tylenol 325mg Tab) 650 mg PO Q6 PRN PRN Reason: Pain, moderate (4-7) Last Admin: 09/13/17 06:07 Dose: 650 mg Aspirin (Ecotrin) 81 mg PO DAILY [facility] Last Admin: 09/17/17 10:10 Dose: 81 mg Benzocaine/Menthol (Cepacol Sore Throat) 1 poppy MT Q2H PRN PRN Reason: Sore Throat Last Admin: 09/17/17 10:11 Dose: 1 poppy Betamethasone/Clotrimazole (Lotrisone) 0 gm TOP BID [facility] Last Admin: 09/17/17 10:14 Dose: 1 applic Calcium Acetate (Phoslo) 667 mg PO TIDCC [facility] Last Admin: 09/17/17 08:21 Dose: Not Given Carvedilol (Coreg) 3.125 mg PO BID [facility] Last Admin: 09/17/17 10:13 Dose: Not Given Famotidine (Pepcid) 20 mg IVP DAILY [facility] Last Admin: 09/16/17 19:50 Dose: 20 mg Gabapentin (Neurontin) 200 mg PO Q12 [facility] Last Admin: 09/17/17 10:11 Dose: 200 mg Heparin Sodium (Porcine) (Heparin) 5,000 units SC Q12 [facility] Last Admin: 09/16/17 22:00 Dose: Not Given Hydromorphone HCl (Dilaudid) 0.5 mg IVP Q3H PRN PRN Reason: Pain, severe (8-10) Stop: 09/18/17 09:36 Metronidazole (Flagyl) 500 mg in 100 mls @ 100 mls/hr IVPB Q8 [facility] PRN Reason: Protocol Stop: 09/17/17 14:01 Last Admin: 09/17/17 06:10 Dose: 100 mls/hr Insulin Glargine (Lantus) 15 unit SC [facility] Last Admin: 09/16/17 22:00 Dose: Not Given Insulin Human Regular (Novolin R) 0 unit SC Q6 [facility] PRN Reason: Protocol Last Admin: 09/17/17 06:00 Dose: Not Given Oxycodone HCl (Oxycodone Immediate Release Tab) 5 mg PO DAILY PRN PRN Reason: Pain, severe (8-10) Last Admin: 09/15/17 22:21 Dose: 5 mg Rosuvastatin Calcium (Crestor) 10 mg PO HS [facility] Last Admin: 09/16/17 22:00 Dose: Not Given Tramadol HCl (Ultram) 50 mg PO TID PRN PRN Reason: Pain, severe (8-10) Last Admin: 09/16/17 01:36 Dose: 50 mg Vitamin B Complex/Vit C/Folic Acid (Nephro-Cony) 1 tab PO DAILY [facility] Last Admin: 09/17/17 10:10 Dose: 1 tab - Labs Labs: 09/17/17 09:23 09/17/17 09:23 PT 10.1 SECONDS (9.7-12.2) 09/16/17 07:10 INR 0.9 09/16/17 07:10 APTT 32 SECONDS (21-34) 09/16/17 07:10 - Constitutional Appears: No Acute Distress, Older Than Stated Age, Chronically Ill - Head Exam Head Exam: NORMAL INSPECTION, NORMOCEPHALIC - Eye Exam Eye Exam: Normal appearance, PERRL - ENT Exam ENT Exam: Normal Exam (ng tube in place) - Neck Exam Neck Exam: Full ROM, Normal Inspection - Respiratory Exam Respiratory Exam: Clear to Ausculation Bilateral, NORMAL BREATHING PATTERN - Cardiovascular Exam Cardiovascular Exam: REGULAR RHYTHM, RRR - GI/Abdominal Exam GI & Abdominal Exam: Distended, Soft - Extremities Exam Extremities Exam: Normal Inspection (b/l amputee) Assessment and Plan (1) End stage renal disease Status: Acute (2) Hypotension Status: Acute (3) PVD (peripheral vascular disease) Status: Acute (4) S/P BKA (below knee amputation) bilateral Status: Acute (5) Colostomy complication, unspecified Status: Acute - Assessment and Plan (Free Text) Assessment: hd tts start binder once bowel function returns. surgical follow up
[2017-09-17] MEDS: HYDROmorphone 0.5 mg/0.5 ml ISec IVP PRN ×2 (13:56→20:05)
[2017-09-17] MEDS: (Lantus) Insulin Glargine, Recombinant SC SCH (21:55)
[2017-09-18] MEDS ORDERED: Dextrose 50% SYRINGE Inj (50 ml) IV PRN ×2 (00:08→00:14)
[2017-09-18] MEDS: (Novolin R) Insulin Human Regular 100 units/ml vial SC SCH ×5 (00:55→23:56)
[2017-09-18 03:47] LABS: BASO % 0.5 % (0.0-2.0); EOS # 0.1 K/uL (0.0-0.7); EOS % 0.8 % (0.0-4.0); LYMPH # 0.9 K/uL (1.0-4.3); LYMPH % 10.6 % (20.0-40.0); MEAN CELL VOLUME 98.3 fL (81.0-99.0); MEAN CORPUSCULAR HEMOGLOBIN 32.6 pg (27.0-31.0); MEAN CORPUSCULAR HGB CONC 33.2 g/dL (33.0-37.0); MEAN PLATELET VOLUME 9.2 fL (7.2-11.7); MONO # 0.5 K/uL (0.0-0.8); MONO % 6.6 % (0.0-10.0); NEUT # 6.8 K/uL (1.8-7.0); NEUT % 81.5 % (50.0-75.0); RBC 2.44 Mil/uL (3.80-5.20); RED CELL DISTRIBUTION WIDTH 16.3 % (11.5-14.5); WHITE BLOOD COUNT 8.3 K/uL (4.8-10.8)
[2017-09-18 03:50] LABS: INR 1.3; PROTHROMBIN TIME 14.9 SECONDS (9.7-12.2)
[2017-09-18 04:01] LABS: CALCIUM 8.8 mg/dl (8.6-10.4)
[2017-09-18] MEDS: HYDROmorphone 0.5 mg/0.5 ml ISec IVP PRN (04:09)
[2017-09-18] MEDS ORDERED: Iodixanol 320 MG/ML 100 ML BOTTLE IV ONE (04:16)
[2017-09-18] MEDS ORDERED: Sodium Chloride 0.9% 250 ML IV ONE (05:08)
--- NOTE | 2017-09-18 06:10 | CT ---
EXAM: CT Abdomen and Pelvis With Intravenous Contrast CLINICAL HISTORY: 51 years old, female; Pain; Abdominal pain and other: V; Prior surgery; Surgery type: Ileostomy reversal; Patient HX: 03-31-17 images sent; Additional info: C TECHNIQUE: Axial computed tomography images of the abdomen and pelvis with intravenous contrast. All CT scans at this facility use one or more dose reduction techniques, viz.: automated exposure control; ma/kV adjustment per patient size (including targeted exams where dose is matched to indication; i.e. head); or iterative reconstruction technique. 640 images are submitted. Coronal and sagittal reformatted images were created and reviewed. CONTRAST: 100 mL of [id number] administered intravenously. COMPARISON: CT - ABD PELVIS W/O PO OR IV CONT 2017-03-31 18:36 FINDINGS: Lung bases: Bibasilar nonspecific infiltrates are present, consistent with atelectasis or pneumonia. Interval resolution of previously seen pleural effusions. Heart: Small pericardial effusion. Cardiomegaly. ABDOMEN: Liver: Fatty liver. Gallbladder and bile ducts: Gallbladder distention which is folded on itself with gallstones and gallbladder wall thickening. Correlation with clinical data is recommended to evaluate for acute on chronic cholecystitis. Pancreas: Unremarkable. No mass. No ductal dilation. Spleen: Unremarkable. No splenomegaly. Adrenals: Unremarkable. No mass. Kidneys and ureters: Calcified renal vessels. No solid mass. No hydronephrosis. Stomach and bowel: Small bowel postoperative changes. Nonspecific colonic thickening with surrounding infiltration likely due to under distention versus nonspecific colitis versus reactive colitis. Partial colectomy. Midline ileocolonic anastomosis. Interval ileostomy reversal. Appendix: Appendectomy. PELVIS: Bladder: Partially decompressed bladder with bladder wall thickening. Correlation with urinalysis is recommended only if clinical cystitis is suspected. Reproductive: Left adnexal ovarian hypodense mass measuring 4.7 x 4.2 cm Enlarged ill-defined right ovary. ABDOMEN and PELVIS: Intraperitoneal space: There is right hemiabdomen peritoneal collection seen on image 113 series 3 measuring 5.5 x 2.3 cm. correlation with clinical data is recommended to evaluate for abscess. There is infiltration of the intraperitoneal mesenteric fat representing peritonitis versus sequela of postoperative change. Possible complex free pelvic fluid or hematoma. Free intraperitoneal air seen on image 50 and 51 series 2. Bones/joints: No acute fracture. No dislocation. Soft tissues: Anterior abdominal wall postsurgical changes. There is anterior abdominal wall fluid and infiltration representing postop changes. Vasculature: Extensive superior Atherosclerotic vascular disease. The aorta demonstrates calcified plaque and is mildly ectatic but normal in caliber. No abdominal aortic aneurysm. Lymph nodes: Under aerated retroperitoneal lymph nodes. Tubes, lines and devices: There is peritoneal dialysis catheter is in the mid pelvis. IMPRESSION: 1. There is right hemiabdomen peritoneal collection seen on image 113 series 3 measuring 5.5 x 2.3 cm. correlation with clinical data is recommended to evaluate for abscess. 2. Gallbladder distention which is folded on itself with gallstones and gallbladder wall thickening. Correlation with clinical data is recommended to evaluate for acute on chronic cholecystitis. 3. There is infiltration of the intraperitoneal mesenteric fat representing peritonitis versus sequela of postoperative change. 4. Left adnexal ovarian hypodense mass measuring 4.7 x 4.2 cm .If clinically warranted, a pelvic ultrasound may be helpful for further assessment. 5. Possible complex free pelvic fluid or hematoma. 6. Peritoneal dialysis catheter, free intraperitoneal air and peritonitis. Close clinical surveillance is recommended if anastomotic leak or bowel perforation is clinically suspected.
--- NOTE | 2017-09-18 08:52 | CP.PCM.PN ---
Subjective - Date & Time of Evaluation Date of Evaluation: 09/18/17 Time of Evaluation: 08:51 - Subjective Subjective: reviewed events Hct doen to 8 due to acute blood loss transfusion ordered dwp Objective - Vital Signs/Intake and Output Vital Signs (last 24 hours): Temp Pulse Resp BP Pulse Ox 99.5 F 100 H 20 145/69 96 09/18/17 07:25 09/18/17 07:25 09/18/17 07:25 09/18/17 07:25 09/18/17 07:25 Intake and Output: 09/18/17 09/18/17 06:59 18:59 Intake Total 0 Balance 0 - Medications Medications: Current Medications Acetaminophen (Tylenol 325mg Tab) 650 mg PO Q6 PRN PRN Reason: Pain, moderate (4-7) Last Admin: 09/13/17 06:07 Dose: 650 mg Aspirin (Ecotrin) 81 mg PO DAILY [facility] Last Admin: 09/17/17 10:10 Dose: 81 mg Benzocaine/Menthol (Cepacol Sore Throat) 1 poppy MT Q2H PRN PRN Reason: Sore Throat Last Admin: 09/17/17 10:11 Dose: 1 poppy Betamethasone/Clotrimazole (Lotrisone) 0 gm TOP BID [facility] Last Admin: 09/17/17 17:08 Dose: 1 applic Calcium Acetate (Phoslo) 667 mg PO TIDCC [facility] Last Admin: 09/17/17 17:06 Dose: Not Given Carvedilol (Coreg) 3.125 mg PO BID [facility] Last Admin: 09/17/17 17:08 Dose: 3.125 mg Dextrose (Dextrose 50% Inj) 25 ml IV Q4H PRN PRN Reason: Hypoglycemia Last Admin: 09/18/17 00:23 Dose: 25 ml Famotidine (Pepcid) 20 mg IVP DAILY [facility] Last Admin: 09/17/17 14:04 Dose: 20 mg Gabapentin (Neurontin) 200 mg PO Q12 [facility] Last Admin: 09/17/17 21:55 Dose: Not Given Heparin Sodium (Porcine) (Heparin) 5,000 units SC Q12 [facility] Last Admin: 09/17/17 21:44 Dose: 5,000 units Hydromorphone HCl (Dilaudid) 0.5 mg IVP Q3H PRN PRN Reason: Pain, severe (8-10) Stop: 09/18/17 09:36 Last Admin: 09/18/17 04:09 Dose: 0.5 mg Dextrose (Dextrose 5% In Water 1000 Ml) 1,000 mls @ 30 mls/hr IV .Q24H [facility] Last Admin: 09/18/17 08:43 Dose: 30 mls/hr Insulin Glargine (Lantus) 15 unit SC [facility] Last Admin: 09/17/17 21:55 Dose: Not Given Insulin Human Regular (Novolin R) 0 unit SC Q6 [facility] PRN Reason: Protocol Last Admin: 09/18/17 06:28 Dose: Not Given Oxycodone HCl (Oxycodone Immediate Release Tab) 5 mg PO DAILY PRN PRN Reason: Pain, severe (8-10) Last Admin: 09/15/17 22:21 Dose: 5 mg Rosuvastatin Calcium (Crestor) 10 mg PO [facility] Last Admin: 09/17/17 21:55 Dose: Not Given Tramadol HCl (Ultram) 50 mg PO TID PRN PRN Reason: Pain, severe (8-10) Last Admin: 09/16/17 01:36 Dose: 50 mg Vitamin B Complex/Vit C/Folic Acid (Nephro-Cony) 1 tab PO DAILY [facility] Last Admin: 09/17/17 10:10 Dose: 1 tab - Labs Labs: 09/18/17 03:42 09/18/17 03:42 PT 14.9 SECONDS (9.7-12.2) H 09/18/17 03:42 INR 1.3 09/18/17 03:42 APTT 35 SECONDS (21-34) H 09/18/17 03:42
[2017-09-18] MEDS: Multivitamin Vitamin B Complex (Nephro-Vite) Tab PO SCH (10:31)
[2017-09-18] MEDS: Clotrimazole/Betamethasone Cream(15 gm) TOP SCH ×3 (10:54→17:35)
[2017-09-18 11:51] LABS: EOS # 0.1 K/uL (0.0-0.7)
[2017-09-18 11:55] LABS: EOS % 1.2 % (0.0-4.0); MONO # 0.7 K/uL (0.0-0.8); WHITE BLOOD COUNT 8.7 K/uL (4.8-10.8)
[2017-09-18 12:06] LABS: BASO # 0.1 K/uL (0.0-0.2); BASO % 0.7 % (0.0-2.0); HEMOGLOBIN 7.5 g/dL (11.0-16.0); LYMPH # 1.2 K/uL (1.0-4.3); LYMPH % 14.2 % (20.0-40.0); MEAN CELL VOLUME 97.9 fL (81.0-99.0); MEAN CORPUSCULAR HEMOGLOBIN 32.3 pg (27.0-31.0); MEAN PLATELET VOLUME 9.4 fL (7.2-11.7); MONO % 8.6 % (0.0-10.0); NEUT # 6.6 K/uL (1.8-7.0); NEUT % 75.3 % (50.0-75.0); RBC 2.32 Mil/uL (3.80-5.20); RED CELL DISTRIBUTION WIDTH 16.2 % (11.5-14.5)
--- NOTE | 2017-09-18 13:29 | CP.PCM.PN ---
Subjective - Date & Time of Evaluation Date of Evaluation: 09/18/17 Time of Evaluation: 10:30 - Subjective Subjective: General surgery progress note for Dr. Cristopher Oh, PGY-1 Pt S & E at bedside. Pt labile at bedside. C/O ab pain, right 1st digit pain. Per nursing, pt with low grade fever overnight, Tmax 100.4. Midline abdominal dressing changed overnight due to saturation. Pt removed NGT overnight. Objective - Vital Signs/Intake and Output Vital Signs (last 24 hours): Temp Pulse Resp BP Pulse Ox 99.5 F 100 H 20 145/69 96 09/18/17 07:25 09/18/17 07:25 09/18/17 07:25 09/18/17 07:25 09/18/17 07:25 Intake and Output: 09/18/17 09/18/17 06:59 18:59 Intake Total 250 Output Total 30 Balance 220 - Medications Medications: Current Medications Acetaminophen (Tylenol 325mg Tab) 650 mg PO Q6 PRN PRN Reason: Pain, moderate (4-7) Last Admin: 09/13/17 06:07 Dose: 650 mg Aspirin (Ecotrin) 81 mg PO DAILY [facility] Last Admin: 09/17/17 10:10 Dose: 81 mg Benzocaine/Menthol (Cepacol Sore Throat) 1 poppy MT Q2H PRN PRN Reason: Sore Throat Last Admin: 09/17/17 10:11 Dose: 1 poppy Betamethasone/Clotrimazole (Lotrisone) 0 gm TOP BID [facility] Last Admin: 09/18/17 11:53 Dose: 1 applic Calcium Acetate (Phoslo) 667 mg PO TIDCC [facility] Last Admin: 09/17/17 17:06 Dose: Not Given Carvedilol (Coreg) 3.125 mg PO BID [facility] Last Admin: 09/18/17 10:30 Dose: 3.125 mg Dextrose (Dextrose 50% Inj) 25 ml IV Q4H PRN PRN Reason: Hypoglycemia Last Admin: 09/18/17 00:23 Dose: 25 ml Famotidine (Pepcid) 20 mg IVP DAILY [facility] Last Admin: 09/18/17 10:29 Dose: 20 mg Fentanyl (Duragesic) 1 patch TD Q72H [facility] Gabapentin (Neurontin) 200 mg PO Q12 [facility] Last Admin: 09/18/17 10:29 Dose: 200 mg Heparin Sodium (Porcine) (Heparin) 5,000 units SC Q12 [facility] Last Admin: 09/17/17 21:44 Dose: 5,000 units Dextrose (Dextrose 5% In Water 1000 Ml) 1,000 mls @ 30 mls/hr IV .Q24H [facility] Last Admin: 09/18/17 08:43 Dose: 30 mls/hr Insulin Glargine (Lantus) [address] [facility] Last Admin: 09/17/17 21:55 Dose: Not Given Insulin Human Regular (Novolin R) 0 unit SC Q6 [facility] PRN Reason: Protocol Last Admin: 09/18/17 06:28 Dose: Not Given Oxycodone HCl (Oxycodone Immediate Release Tab) 5 mg PO DAILY PRN PRN Reason: Pain, severe (8-10) Last Admin: 09/15/17 22:21 Dose: 5 mg Rosuvastatin Calcium (Crestor) [address] [facility] Last Admin: 09/17/17 21:55 Dose: Not Given Tramadol HCl (Ultram) 50 mg PO TID PRN PRN Reason: Pain, severe (8-10) Last Admin: 09/18/17 10:29 Dose: 50 mg Vitamin B Complex/Vit C/Folic Acid (Nephro-Cony) 1 tab PO DAILY [facility] Last Admin: 09/18/17 10:31 Dose: Not Given - Labs Labs: 09/18/17 11:48 09/18/17 03:42 PT 14.9 SECONDS (9.7-12.2) H 09/18/17 03:42 INR 1.3 09/18/17 03:42 APTT 35 SECONDS (21-34) H 09/18/17 03:42 - Constitutional Appears: Non-toxic, No Acute Distress - Head Exam Head Exam: ATRAUMATIC, NORMAL INSPECTION, NORMOCEPHALIC - Eye Exam Eye Exam: EOMI, Normal appearance - ENT Exam ENT Exam: Mucous Membranes Moist, Normal Exam - Neck Exam Neck Exam: Full ROM, Normal Inspection - Respiratory Exam Respiratory Exam: NORMAL BREATHING PATTERN - Cardiovascular Exam Cardiovascular Exam: REGULAR RHYTHM, +S1, +S2 - GI/Abdominal Exam GI & Abdominal Exam: Soft, Tenderness (Diffuse, increased over surgical site). absent: Distended, Firm Additional comments: Drain with 15cc sanguinous output - Extremities Exam Extremities Exam: absent: Normal Inspection (B/L BKA) - Neurological Exam Neurological Exam: Alert, Awake, CN II-XII Intact, Oriented x3 - Psychiatric Exam Psychiatric exam: Normal Affect. absent: Normal Mood (labile) - Skin Skin Exam: Dry, Intact, Normal Color, Warm Assessment and Plan - Assessment and Plan (Free Text) Assessment: 51F POD#2 s/p reversal of ileostomy Plan: Cont NPO except meds NGT to low-cont suction suction Monitor for bowel function Pain meds PRN Anti-emetic PRN FU UE dopplers Acute anemia- may need to transfuse Will DW attending Althea, PGY-1
--- NOTE | 2017-09-18 15:00 | VASCLAB ---
PROCEDURE: HISTORY: COMPARISON: None available. TECHNIQUE: Grayscale and duplex Doppler evaluation of the right upper extremity was performed. Report prepared by TARA Mariano, RVT FINDINGS: RIGHT UPPER EXTREMITY: * Prox SCA : Peak Systolic Velocity - 384: Doppler Waveform: Triphasic.: Plaque description - * Distal SCA: Peak Systolic Velocity - 178: Doppler Waveform: Triphasic.: Plaque description - * Axillary: Peak Systolic Velocity - 119: Doppler Waveform: Triphasic.: Plaque description - * Brachial o Proximal Segment: Peak Systolic Velocity - 94: Doppler Waveform: Biphasic: Plaque description - o Distal Segment: Peak Systolic Velocity - 77: Doppler Waveform: Biphasic: Plaque description - * Radial o Proximal Segment: Peak Systolic Velocity - 81: Doppler Waveform: Biphasic: Plaque description - o Distal Segment: Peak Systolic Velocity - 113: Doppler Waveform: Biphasic: Plaque description - * Radial o Proximal Segment: Peak Systolic Velocity - 66: Doppler Waveform: Biphasic: Plaque description - o Distal Segment: Peak Systolic Velocity - 0: Doppler Waveform: Absent: Plaque description - OTHER FINDINGS: SEBASTIEN Beasley notified about the findings. IMPRESSION: RIGHT: Possible occlusion of the right distal ulnar artery. 50-75% stenosis of the right proximal subclavian artery.
--- NOTE | 2017-09-18 15:55 | CP.PCM.PN ---
Subjective - Date & Time of Evaluation Date of Evaluation: 09/18/17 Time of Evaluation: 15:51 - Subjective Subjective: for blood transfusion abdomen with some bloody drainage, wet pt mildly agitated low grade fevers persist unable to obtain ROS due to clinical situation CT with fluid collection Objective - Vital Signs/Intake and Output Vital Signs (last 24 hours): Temp Pulse Resp BP Pulse Ox 99.5 F 100 H 20 145/69 96 09/18/17 07:25 09/18/17 07:25 09/18/17 07:25 09/18/17 07:25 09/18/17 07:25 Intake and Output: 09/18/17 09/18/17 06:59 18:59 Intake Total 250 330 Output Total 30 Balance 220 330 - Medications Medications: Current Medications Acetaminophen (Tylenol 325mg Tab) 650 mg PO Q6 PRN PRN Reason: Pain, moderate (4-7) Last Admin: 09/13/17 06:07 Dose: 650 mg Aspirin (Ecotrin) 81 mg PO DAILY [facility] Last Admin: 09/17/17 10:10 Dose: 81 mg Benzocaine/Menthol (Cepacol Sore Throat) 1 poppy MT Q2H PRN PRN Reason: Sore Throat Last Admin: 09/17/17 10:11 Dose: 1 poppy Betamethasone/Clotrimazole (Lotrisone) 0 gm TOP BID [facility] Last Admin: 09/18/17 11:53 Dose: 1 applic Calcium Acetate (Phoslo) 667 mg PO TIDCC [facility] Last Admin: 09/18/17 12:00 Dose: Not Given Carvedilol (Coreg) 3.125 mg PO BID [facility] Last Admin: 09/18/17 10:30 Dose: 3.125 mg Dextrose (Dextrose 50% Inj) 25 ml IV Q4H PRN PRN Reason: Hypoglycemia Last Admin: 09/18/17 00:23 Dose: 25 ml Famotidine (Pepcid) 20 mg IVP DAILY [facility] Last Admin: 09/18/17 10:29 Dose: 20 mg Fentanyl (Duragesic) 1 patch TD Q72H [facility] Last Admin: 09/18/17 13:46 Dose: 1 patch Gabapentin (Neurontin) 200 mg PO Q12 [facility] Last Admin: 09/18/17 10:29 Dose: 200 mg Heparin Sodium (Porcine) (Heparin) 5,000 units SC Q12 [facility] Last Admin: 09/17/17 21:44 Dose: 5,000 units Dextrose (Dextrose 5% In Water 1000 Ml) 1,000 mls @ 30 mls/hr IV .Q24H [facility] Last Admin: 09/18/17 08:43 Dose: 30 mls/hr Insulin Glargine (Lantus) 15 unit SC HS [facility] Last Admin: 09/17/17 21:55 Dose: Not Given Insulin Human Regular (Novolin R) 0 unit SC Q6 [facility] PRN Reason: Protocol Last Admin: 09/18/17 12:00 Dose: Not Given Oxycodone HCl (Oxycodone Immediate Release Tab) 5 mg PO DAILY PRN PRN Reason: Pain, severe (8-10) Last Admin: 09/15/17 22:21 Dose: 5 mg Rosuvastatin Calcium (Crestor) 10 mg PO [facility] Last Admin: 09/17/17 21:55 Dose: Not Given Tramadol HCl (Ultram) 50 mg PO TID PRN PRN Reason: Pain, severe (8-10) Last Admin: 09/18/17 13:45 Dose: 50 mg Vitamin B Complex/Vit C/Folic Acid (Nephro-Cony) 1 tab PO DAILY [facility] Last Admin: 09/18/17 10:31 Dose: Not Given - Labs Labs: 09/18/17 11:48 09/18/17 03:42 PT 14.9 SECONDS (9.7-12.2) H 09/18/17 03:42 INR 1.3 09/18/17 03:42 APTT 35 SECONDS (21-34) H 09/18/17 03:42 - Constitutional Appears: Chronically Ill - Eye Exam Eye Exam: EOMI - ENT Exam ENT Exam: Mucous Membranes Moist - Neck Exam Neck Exam: Full ROM. absent: Lymphadenopathy - Respiratory Exam Respiratory Exam: Decreased Breath Sounds. absent: Accessory Muscle Use - Cardiovascular Exam Cardiovascular Exam: REGULAR RHYTHM - GI/Abdominal Exam GI & Abdominal Exam: Distended Additional comments: draining from abdominal incision, blood tinged - Exam Additional comments: right bka c/d/i - Neurological Exam Neurological Exam: Alert, Awake Assessment and Plan - Assessment and Plan (Free Text) Plan: HD in am surgery to evaluate collection blood transfusion repeat cultures
[2017-09-18 21:44] LABS: HEMOGLOBIN 9.4 g/dL (11.0-16.0)
[2017-09-18] MEDS: (Lantus) Insulin Glargine, Recombinant SC SCH (21:50)
[2017-09-19] MEDS: (Novolin R) Insulin Human Regular 100 units/ml vial SC SCH ×3 (06:00→17:09)
[2017-09-19] MEDS: Clotrimazole/Betamethasone Cream(15 gm) TOP SCH ×2 (10:00→17:42)
[2017-09-19] MEDS: Multivitamin Vitamin B Complex (Nephro-Vite) Tab PO SCH ×2 (10:00→13:17)
--- NOTE | 2017-09-19 10:37 | CP.PCM.PN ---
Subjective - Date & Time of Evaluation Date of Evaluation: 09/19/17 Time of Evaluation: 10:34 - Subjective Subjective: seen and examined on hd estimated uf 900cc, bp stable tolerating well c/o not passing gas. +abdominal pain 10 point ROS obtained, npo fevers chills sob cp dizziness nausea vomiting headache weakness or numbness\ abdominal fluid collection on ct Objective - Vital Signs/Intake and Output Vital Signs (last 24 hours): Temp Pulse Resp BP Pulse Ox 98.1 F 95 H 18 144/70 97 09/19/17 08:45 09/19/17 08:45 09/19/17 08:45 09/19/17 10:15 09/19/17 08:45 Intake and Output: 09/19/17 09/19/17 06:59 18:59 Intake Total 325 240 Balance 325 240 - Medications Medications: Current Medications Acetaminophen (Tylenol 325mg Tab) 650 mg PO Q6 PRN PRN Reason: Pain, moderate (4-7) Last Admin: 09/18/17 16:00 Dose: 650 mg Aspirin (Ecotrin) 81 mg PO DAILY [facility] Last Admin: 09/17/17 10:10 Dose: 81 mg Benzocaine/Menthol (Cepacol Sore Throat) 1 poppy MT Q2H PRN PRN Reason: Sore Throat Last Admin: 09/17/17 10:11 Dose: 1 poppy Betamethasone/Clotrimazole (Lotrisone) 0 gm TOP BID [facility] Last Admin: 09/18/17 17:35 Dose: 1 applic Calcium Acetate (Phoslo) 667 mg PO TIDCC [facility] Last Admin: 09/18/17 17:31 Dose: Not Given Carvedilol (Coreg) 3.125 mg PO BID [facility] Last Admin: 09/18/17 17:30 Dose: 3.125 mg Dextrose (Dextrose 50% Inj) 25 ml IV Q4H PRN PRN Reason: Hypoglycemia Last Admin: 09/18/17 00:23 Dose: 25 ml Epoetin Alec (Procrit) 10,000 unit IV TTS [facility] Famotidine (Pepcid) 20 mg IVP DAILY [facility] Last Admin: 09/18/17 10:29 Dose: 20 mg Fentanyl (Duragesic) 1 patch TD Q72H [facility] Last Admin: 09/18/17 13:46 Dose: 1 patch Gabapentin (Neurontin) 200 mg PO Q12 [facility] Last Admin: 09/18/17 21:51 Dose: 200 mg Heparin Sodium (Porcine) (Heparin) 5,000 units SC Q12 [facility] Last Admin: 09/17/17 21:44 Dose: 5,000 units Dextrose (Dextrose 5% In Water 1000 Ml) 1,000 mls @ 30 mls/hr IV .Q24H [facility] Last Admin: 09/19/17 08:09 Dose: 30 mls/hr Insulin Glargine (Lantus) 15 unit SC [facility] Last Admin: 09/18/17 21:50 Dose: Not Given Insulin Human Regular (Novolin R) 0 unit SC Q6 [facility] PRN Reason: Protocol Last Admin: 09/19/17 06:00 Dose: Not Given Rosuvastatin Calcium (Crestor) 10 mg PO [facility] Last Admin: 09/18/17 21:52 Dose: 10 mg Tramadol HCl (Ultram) 50 mg PO TID PRN PRN Reason: Pain, severe (8-10) Last Admin: 09/18/17 19:03 Dose: 50 mg Vitamin B Complex/Vit C/Folic Acid (Nephro-Cony) 1 tab PO DAILY [facility] Last Admin: 09/18/17 10:31 Dose: Not Given - Labs Labs: 09/18/17 21:41 09/18/17 03:42 PT 14.9 SECONDS (9.7-12.2) H 09/18/17 03:42 INR 1.3 09/18/17 03:42 APTT 35 SECONDS (21-34) H 09/18/17 03:42 - Constitutional Appears: Non-toxic, No Acute Distress, Older Than Stated Age, Chronically Ill - Head Exam Head Exam: NORMAL INSPECTION - Eye Exam Eye Exam: Normal appearance Pupil Exam: NORMAL ACCOMODATION - ENT Exam ENT Exam: Mucous Membranes Moist, Normal Exam - Neck Exam Neck Exam: Full ROM, Normal Inspection - Respiratory Exam Respiratory Exam: Decreased Breath Sounds, NORMAL BREATHING PATTERN - Cardiovascular Exam Cardiovascular Exam: REGULAR RHYTHM, RRR - GI/Abdominal Exam GI & Abdominal Exam: Firm (abdominal binder in place) - Extremities Exam Additional comments: b/l amputee Assessment and Plan (1) End stage renal disease Status: Acute (2) Hypotension Status: Acute (3) PVD (peripheral vascular disease) Status: Acute (4) S/P BKA (below knee amputation) bilateral Status: Acute (5) Colostomy complication, unspecified Status: Acute - Assessment and Plan (Free Text) Assessment: maintain hd tts anabela w/ hd surgical management
--- NOTE | 2017-09-19 10:44 | CP.PCM.PN ---
Subjective - Date & Time of Evaluation Date of Evaluation: 09/19/17 Time of Evaluation: 06:50 - Subjective Subjective: General surgery progress note for Dr. Cristopher Oh, PGY-1 Pt S & E at bedside. Pt resting comfortably in bed. Reports ab pain, right first digit pain. Afebrile overnight. Pt received 1 unit pRBCs yesterday. Denies N & V, F & C, flatus, BM, or other complaints. Roel with 40 cc sanguinous output/12H. Objective - Vital Signs/Intake and Output Vital Signs (last 24 hours): Temp Pulse Resp BP Pulse Ox 98.1 F 95 H 18 144/70 97 09/19/17 08:45 09/19/17 08:45 09/19/17 08:45 09/19/17 10:15 09/19/17 08:45 Intake and Output: 09/19/17 09/19/17 06:59 18:59 Intake Total 325 240 Balance 325 240 - Medications Medications: Current Medications Acetaminophen (Tylenol 325mg Tab) 650 mg PO Q6 PRN PRN Reason: Pain, moderate (4-7) Last Admin: 09/18/17 16:00 Dose: 650 mg Aspirin (Ecotrin) 81 mg PO DAILY [facility] Last Admin: 09/17/17 10:10 Dose: 81 mg Benzocaine/Menthol (Cepacol Sore Throat) 1 poppy MT Q2H PRN PRN Reason: Sore Throat Last Admin: 09/17/17 10:11 Dose: 1 poppy Betamethasone/Clotrimazole (Lotrisone) 0 gm TOP BID [facility] Last Admin: 09/18/17 17:35 Dose: 1 applic Calcium Acetate (Phoslo) 667 mg PO TIDCC [facility] Last Admin: 09/18/17 17:31 Dose: Not Given Carvedilol (Coreg) 3.125 mg PO BID [facility] Last Admin: 09/18/17 17:30 Dose: 3.125 mg Dextrose (Dextrose 50% Inj) 25 ml IV Q4H PRN PRN Reason: Hypoglycemia Last Admin: 09/18/17 00:23 Dose: 25 ml Epoetin Alec (Procrit) 10,000 unit IV TTS [facility] Famotidine (Pepcid) 20 mg IVP DAILY [facility] Last Admin: 09/18/17 10:29 Dose: 20 mg Fentanyl (Duragesic) 1 patch TD Q72H [facility] Last Admin: 09/18/17 13:46 Dose: 1 patch Gabapentin (Neurontin) 200 mg PO Q12 [facility] Last Admin: 09/18/17 21:51 Dose: 200 mg Heparin Sodium (Porcine) (Heparin) 5,000 units SC Q12 [facility] Last Admin: 09/17/17 21:44 Dose: 5,000 units Dextrose (Dextrose 5% In Water 1000 Ml) 1,000 mls @ 30 mls/hr IV .Q24H [facility] Last Admin: 09/19/17 08:09 Dose: 30 mls/hr Insulin Glargine (Lantus) 15 unit SC [facility] Last Admin: 09/18/17 21:50 Dose: Not Given Insulin Human Regular (Novolin R) 0 unit SC Q6 [facility] PRN Reason: Protocol Last Admin: 09/19/17 06:00 Dose: Not Given Rosuvastatin Calcium (Crestor) 10 mg PO [facility] Last Admin: 09/18/17 21:52 Dose: 10 mg Tramadol HCl (Ultram) 50 mg PO TID PRN PRN Reason: Pain, severe (8-10) Last Admin: 09/18/17 19:03 Dose: 50 mg Vitamin B Complex/Vit C/Folic Acid (Nephro-Cony) 1 tab PO DAILY [facility] Last Admin: 09/18/17 10:31 Dose: Not Given - Labs Labs: 09/18/17 21:41 09/18/17 03:42 PT 14.9 SECONDS (9.7-12.2) H 09/18/17 03:42 INR 1.3 09/18/17 03:42 APTT 35 SECONDS (21-34) H 09/18/17 03:42 - Constitutional Appears: Non-toxic, No Acute Distress - Head Exam Head Exam: ATRAUMATIC, NORMAL INSPECTION, NORMOCEPHALIC - Eye Exam Eye Exam: EOMI, Normal appearance - ENT Exam ENT Exam: Mucous Membranes Moist, Normal Exam - Neck Exam Neck Exam: Full ROM, Normal Inspection - Respiratory Exam Respiratory Exam: NORMAL BREATHING PATTERN - Cardiovascular Exam Cardiovascular Exam: REGULAR RHYTHM, +S1, +S2 - GI/Abdominal Exam GI & Abdominal Exam: Soft, Tenderness (minimal, around incision site). absent: Distended, Firm, Guarding, Rigid, Rebound Additional comments: Midline dressing with distal saturation of sanguinous output. - Extremities Exam Extremities Exam: Tenderness (Right first digit, dressing in place- clean/dry/ intact). absent: Normal Inspection (B/L BKA) - Neurological Exam Neurological Exam: Alert, Awake, CN II-XII Intact, Oriented x3 - Psychiatric Exam Psychiatric exam: Normal Affect, Normal Mood - Skin Skin Exam: Intact, Normal Color, Warm Assessment and Plan - Assessment and Plan (Free Text) Assessment: 51F POD#3 s/p reversal of ileostomy Plan: Advanced to CLD as per Dr. Clark Cont to monitor for bowel function Pain meds PRN Anti-emetic PRN Duplex U/S with possible occlusion of right distal ulnar Artery Per primary team, pt to be seen by hand surgery for finger DW attending Althea, PGY-1
[2017-09-19 11:14] LABS: BASO % 0.5 % (0.0-2.0); EOS # 0.2 K/uL (0.0-0.7); HEMOGLOBIN 8.9 g/dL (11.0-16.0); LYMPH # 0.7 K/uL (1.0-4.3); LYMPH % 8.6 % (20.0-40.0); MEAN CELL VOLUME 96.9 fL (81.0-99.0); MEAN CORPUSCULAR HEMOGLOBIN 33.7 pg (27.0-31.0); MEAN CORPUSCULAR HGB CONC 34.8 g/dL (33.0-37.0); MEAN PLATELET VOLUME 8.5 fL (7.2-11.7); MONO # 0.5 K/uL (0.0-0.8); MONO % 6.6 % (0.0-10.0); NEUT # 6.9 K/uL (1.8-7.0); NEUT % 82.3 % (50.0-75.0); PLATELET COUNT 204 K/uL (130-400); RBC 2.65 Mil/uL (3.80-5.20); RED CELL DISTRIBUTION WIDTH 15.2 % (11.5-14.5); WHITE BLOOD COUNT 8.4 K/uL (4.8-10.8)
[2017-09-19 11:42] LABS: EOSINOPHIL 1 % (0-4); LYMPHOCYTE 8 % (20-40); MONOCYTE 5 % (0-10); NEUTROPHIL 86 % (50-75); PLATELET ESTIMATE NORMAL (NORMAL); TOTAL CELLS COUNTED 100
[2017-09-19 11:43] LABS: ANISOCYTOSIS SLIGHT; HYPOCHROMIC MODERATE; POIKILOCYTOSIS SLIGHT; TARGET CELLS SLIGHT
[2017-09-19] MEDS: Epoetin Alfa 10,000 unit/ml Dialysis IV SCH (12:14)
--- NOTE | 2017-09-19 18:12 | CP.PCM.CON ---
History of Present Illness - History of Present Illness History of Present Illness: Patient is a 51 y/o female with extensive PMH of DMII, HTN, HLD, b/l BKA, CKD on dialysis and ileostomy with reversal during this admission c/o of right 2nd digit pain. Dr. Luo was consulted for orthopedic hand evaluation. The patient admits to an injury which occurred on August 03 2017 after jamming her R 2nd digit into her wheelchair. She reports pain that has been controlled since the time of the injury and no evidence of lesions. However, over the past few days, she noticed a progressive wound at the tip of the finger. The pain is nos constant sharp and located at the tip of her R 2nd digit. The pain is worse with movement and better with rest. She denies numbness or tingling. She also denies CP/SOB/N/V/D/dysuria. Review of Systems - Review of Systems All systems: reviewed and no additional remarkable complaints except Review of Systems: as per HPI Past Patient History - Infectious Disease Hx of Infectious Diseases: None - Past Medical History & Family History Past Medical History?: Yes Past Family History: Reviewed and not pertinent - Past Social History Smoking Status: Never Smoked Alcohol: None Drugs: Denies - CARDIAC Hx Congestive Heart Failure: Yes Hx Hypercholesterolemia: Yes Hx Hypertension: Yes - PULMONARY Hx Bronchitis: Yes - NEUROLOGICAL Hx Neurological Disorder: No - HEENT Hx HEENT Problems: No - RENAL Hx Chronic Kidney Disease: Yes - ENDOCRINE/METABOLIC Hx Endocrine Disorders: Yes Hx Diabetes Mellitus Type 2: Yes - HEMATOLOGICAL/ONCOLOGICAL Hx Anemia: Yes - INTEGUMENTARY Hx Dermatological Problems: Yes Hx Eczema: Yes - MUSCULOSKELETAL/RHEUMATOLOGICAL Hx Falls: No - GASTROINTESTINAL Hx Gastrointestinal Disorders: Yes (INTESTINAL OBSTRUCTION) Hx Ileostomy: Yes Other/Comment: S/P ILEOSTOMY - GENITOURINARY/GYNECOLOGICAL Hx Genitourinary Disorders: Yes (DX: RENAL FAILURE) - PSYCHIATRIC Hx Anxiety: Yes Hx Substance Use: No - SURGICAL HISTORY Hx Surgeries: Yes Hx Amputation: Yes (bilat bka) Hx Section: Yes Hx Eye Surgery: Yes (INSERT "GAS" BUBBLE BOTH EYES) Hx Tubal Ligation: Yes Hx Vascular Access Device: Yes (R SC HD cath) Other/Comment: I&D GROIN; 12/30/14 LAPAROSCOPIC INSERTION PERITONEAL DIALYSIS CATHETE over right chest. 01/14/15 REVISION DONE OF PERITIONEAL DIALYSIS CATH. 08/15/17 0230 - Patient refusing to give further information at this time REMOVAL RETAINED PERITONEAL DIALYSIS CATHETER - ANESTHESIA Hx Anesthesia: Yes Hx Anesthesia Reactions: No Hx Malignant Hyperthermia: No Meds Allergies/Adverse Reactions: Allergies Allergy/AdvReac Type Severity Reaction Status Date / Time shrimp Allergy Severe RASH Verified 08/14/17 19:34 wool Allergy RASH Verified 09/11/17 08:35 - Medications Medications: Current Medications Acetaminophen (Tylenol 325mg Tab) 650 mg PO Q6 PRN PRN Reason: Pain, moderate (4-7) Last Admin: 09/18/17 16:00 Dose: 650 mg Aspirin (Ecotrin) 81 mg PO DAILY [facility] Last Admin: 09/17/17 10:10 Dose: 81 mg Benzocaine/Menthol (Cepacol Sore Throat) 1 poppy MT Q2H PRN PRN Reason: Sore Throat Last Admin: 09/17/17 10:11 Dose: 1 poppy Betamethasone/Clotrimazole (Lotrisone) 0 gm TOP BID [facility] Last Admin: 09/19/17 17:42 Dose: Not Given Calcium Acetate (Phoslo) 667 mg PO TIDCC [facility] Last Admin: 09/19/17 13:17 Dose: 667 mg Carvedilol (Coreg) 3.125 mg PO BID [facility] Last Admin: 09/19/17 17:39 Dose: 3.125 mg Dextrose (Dextrose 50% Inj) 25 ml IV Q4H PRN PRN Reason: Hypoglycemia Last Admin: 09/18/17 00:23 Dose: 25 ml Epoetin Alec (Procrit) 10,000 unit IV TTS [facility] Stop: 10/01/17 10:01 Last Admin: 09/19/17 12:14 Dose: 10,000 unit Famotidine (Pepcid) 20 mg IVP DAILY [facility] Last Admin: 09/19/17 13:17 Dose: 20 mg Fentanyl (Duragesic) 1 patch TD Q72H [facility] Last Admin: 09/18/17 13:46 Dose: 1 patch Gabapentin (Neurontin) 200 mg PO Q12 [facility] Last Admin: 09/19/17 10:00 Dose: Not Given Heparin Sodium (Porcine) (Heparin) 5,000 units SC Q12 [facility] Last Admin: 09/17/17 21:44 Dose: 5,000 units Dextrose (Dextrose 5% In Water 1000 Ml) 1,000 mls @ 30 mls/hr IV .Q24H [facility] Last Admin: 09/19/17 08:09 Dose: 30 mls/hr Insulin Glargine (Lantus) 15 unit SC [facility] Last Admin: 09/18/17 21:50 Dose: Not Given Insulin Human Regular (Novolin R) 0 unit SC Q6 [facility] PRN Reason: Protocol Last Admin: 09/19/17 17:09 Dose: Not Given Rosuvastatin Calcium (Crestor) 10 mg PO [facility] Last Admin: 09/18/17 21:52 Dose: 10 mg Tramadol HCl (Ultram) 50 mg PO TID PRN PRN Reason: Pain, severe (8-10) Last Admin: 09/19/17 10:59 Dose: 50 mg Vitamin B Complex/Vit C/Folic Acid (Nephro-Cony) 1 tab PO DAILY [facility] Last Admin: 09/19/17 13:17 Dose: 1 tab Physical Exam - Constitutional Appears: No Acute Distress - Head Exam Head Exam: ATRAUMATIC - Eye Exam Eye Exam: EOMI Pupil Exam: NORMAL ACCOMODATION - ENT Exam ENT Exam: Mucous Membranes Moist - Respiratory Exam Respiratory Exam: Clear to Auscultation Bilateral, NORMAL BREATHING PATTERN - Extremities Exam Additional comments: R hand: open wound at tip of distal phalynx of 2nd digit, pus expressed from the wound, mild deformity, exquisite tenderness sensation and motor intact MN/UN/RN Results - Vital Signs Recent Vital Signs: Last Vital Signs Temp 98.8 F 09/19/17 16:00 Pulse 107 H 09/19/17 16:00 Resp 20 09/19/17 16:00 BP 180/81 H 09/19/17 16:00 Pulse Ox 95 09/19/17 16:00 - Labs Result Diagrams: 09/20/17 12:11 09/20/17 12:11 Labs: Laboratory Results - last 24 hr 09/18/17 09/18/17 09/18/17 18:32 20:39 20:42 WBC RBC Hgb Hct MCV MCH MCHC RDW Plt Count MPV Neut % (Auto) Lymph % (Auto) [place] % (Auto) Eos % (Auto) Baso % (Auto) Neut # (Auto) Lymph # (Auto) [place] # (Auto) Eos # (Auto) Baso # (Auto) Neutrophils % (Manual) Lymphocytes % (Manual) Monocytes % (Manual) Eosinophils % (Manual) Platelet Estimate Hypochromasia (manual) Poikilocytosis (manual Anisocytosis (manual) Target Cells POC Glucose (mg/dL) 80 69 87 09/18/17 09/18/17 09/19/17 21:41 22:25 01:59 WBC RBC Hgb 9.4 L Hct 28.1 L MCV MCH MCHC RDW Plt Count MPV Neut % (Auto) Lymph % (Auto) [place] % (Auto) Eos % (Auto) Baso % (Auto) Neut # (Auto) Lymph # (Auto) [place] # (Auto) Eos # (Auto) Baso # (Auto) Neutrophils % (Manual) Lymphocytes % (Manual) Monocytes % (Manual) Eosinophils % (Manual) Platelet Estimate Hypochromasia (manual) Poikilocytosis (manual Anisocytosis (manual) Target Cells POC Glucose (mg/dL) 76 74 09/19/17 09/19/17 09/19/17 06:32 10:35 11:17 WBC 8.4 RBC 2.65 L Hgb 8.9 L Hct 25.7 L MCV 96.9 MCH 33.7 H MCHC 34.8 RDW 15.2 H Plt Count 204 MPV 8.5 Neut % (Auto) 82.3 H Lymph % (Auto) 8.6 L [place] % (Auto) 6.6 Eos % (Auto) 2.0 Baso % (Auto) 0.5 Neut # (Auto) 6.9 Lymph # (Auto) 0.7 L [place] # (Auto) 0.5 Eos # (Auto) 0.2 Baso # (Auto) 0.0 Neutrophils % (Manual) 86 H Lymphocytes % (Manual) 8 L Monocytes % (Manual) 5 Eosinophils % (Manual) 1 Platelet Estimate Normal Hypochromasia (manual) Moderate Poikilocytosis (manual Slight Anisocytosis (manual) Slight Target Cells Slight POC Glucose (mg/dL) 80 93 09/19/17 16:53 WBC RBC Hgb Hct MCV MCH MCHC RDW Plt Count MPV Neut % (Auto) Lymph % (Auto) [place] % (Auto) Eos % (Auto) Baso % (Auto) Neut # (Auto) Lymph # (Auto) [place] # (Auto) Eos # (Auto) Baso # (Auto) Neutrophils % (Manual) Lymphocytes % (Manual) Monocytes % (Manual) Eosinophils % (Manual) Platelet Estimate Hypochromasia (manual) Poikilocytosis (manual Anisocytosis (manual) Target Cells POC Glucose (mg/dL) 129 H Assessment & Plan (1) Abscess of finger of right hand Assessment and Plan: -pus expressed from wound -dry dressings applied -warm soaks TID -abx as per medicine -recommend ID consult -above d/w Dr. Luo in agreement Status: Acute Radiology Interpretation - Hospital Director Hospital Director:: Radiologist - Study type Study type:: Plain films - Radiology Interpretation #2 Interpretation: PROCEDURE: Right Index finger radiographs. HISTORY: 2nd digit distal phalynx crush injury COMPARISON: None. TECHNIQUE: AP radiograph of the right hand, as well as spot oblique and lateral images of index finger were obtained. FINDINGS: RIGHT INDEX FINGER: Soft tissue injury distal tuft. Remainder of the right hand (as seen on the AP view) grossly intact. JOINTS: Normal. SOFT TISSUES: Soft tissue injury distal tuft index finger. No visulaized radiopaque/ visualized foreign body. OTHER FINDINGS: Vascular calcifications identified. IMPRESSION: Soft tissue swelling without acute articular or osseous abnormality.
[2017-09-19] MEDS ORDERED: Vancomycin 1 gm/NS 200 ml 1 GM/200 ML BAG IVPB ONE (18:15)
[2017-09-19] MEDS ORDERED: oxyCODONE 5 mg Immediate Release Tab PO ONE (20:00)
--- NOTE | 2017-09-19 21:07 | CP.PCM.CON ---
History of Present Illness - History of Present Illness History of Present Illness: INFECTIOUS DISEASE CONSULT; HPI; 51-year-old female with history of multiple hospitalization at [facility] and extensive past medical history including DM type II, HTN, HLD,B/L below- knee amputation on HD,TTS for chronic kidney diseas, history of ileostomy and now with reversal during this admission on 09/16/17 was complaining of pain right second digit of her right hand. Patient admits to having his hand jammed in her wheelchair on August 03, 2017. Patient states she has been having pain in her right finger but was controlled with oral analgesics. Recently she noticed for the past few days that her finger wound was progressively getting worse and she was experiencing constant sharp pain located at the tip of her right second digit. Patient seen by orthopedic for hand evaluation and underwent squeezing off old blood and pus today as reported. Patient was given one dose of vancomycin 1 g today by her private M.D. Infectious disease consult requested by PMD for further evaluation and antibiotics for her right finger abscess and cellulitis. Patient denies any numbness or tingling of her right hand. PATIENT DENIES ANY FEVER OR CHILLS.SHE STILL HAS A Malik-Elkins DRAINING FROM THE COLOSTOMY SITE SEROSANGUINEOUS DRAINAGE. ALLERGY; SHRIMP,WOOL PSH: ESRD ON PD,NOW ON HD TTS DIABETIC NEPHROPATHY PVD HTN DM 1 PSH: PD CATH PLACEMENT AND REMOVAL COLOSTOMY BILATERAL BKA Review of Systems - Constitutional Constitutional: absent: Chills, Fever - EENT Eyes: absent: Photophobia Nose/Mouth/Throat: absent: Dry Mouth, Mouth Lesions - Cardiovascular Cardiovascular: absent: Chest Pain, Pain Radiating to Arm/Neck/Jaw, Palpitations - Respiratory Respiratory: absent: Cough, Hemoptysis - Gastrointestinal Gastrointestinal: absent: Abdominal Pain, Constipation, Diarrhea - Musculoskeletal Musculoskeletal: As Per HPI, Limited Range of Motion - Neurological Neurological: absent: Disequilibrium, Tingling - Hematologic/Lymphatic Hematologic: As Per HPI. absent: Easy Bleeding, Easy Bruising, Lymphadenopathy Past Patient History - Infectious Disease Hx of Infectious Diseases: None - Past Medical History & Family History Past Medical History?: Yes Past Family History: Reviewed and not pertinent - Past Social History Smoking Status: Never Smoked Alcohol: None Drugs: Denies - CARDIAC Hx Congestive Heart Failure: Yes Hx Hypercholesterolemia: Yes Hx Hypertension: Yes - PULMONARY Hx Bronchitis: Yes - NEUROLOGICAL Hx Neurological Disorder: No - HEENT Hx HEENT Problems: No - RENAL Hx Chronic Kidney Disease: Yes - ENDOCRINE/METABOLIC Hx Endocrine Disorders: Yes Hx Diabetes Mellitus Type 2: Yes - HEMATOLOGICAL/ONCOLOGICAL Hx Anemia: Yes - INTEGUMENTARY Hx Dermatological Problems: Yes Hx Eczema: Yes - MUSCULOSKELETAL/RHEUMATOLOGICAL Hx Falls: No - GASTROINTESTINAL Hx Gastrointestinal Disorders: Yes (INTESTINAL OBSTRUCTION) Hx Ileostomy: Yes Other/Comment: S/P ILEOSTOMY - GENITOURINARY/GYNECOLOGICAL Hx Genitourinary Disorders: Yes (DX: RENAL FAILURE) - PSYCHIATRIC Hx Anxiety: Yes Hx Substance Use: No - SURGICAL HISTORY Hx Surgeries: Yes Hx Amputation: Yes (bilat bka) Hx Section: Yes Hx Eye Surgery: Yes (INSERT "GAS" BUBBLE BOTH EYES) Hx Tubal Ligation: Yes Hx Vascular Access Device: Yes (R SC HD cath) Other/Comment: I&D GROIN; 12/30/14 LAPAROSCOPIC INSERTION PERITONEAL DIALYSIS CATHETE over right chest. 01/14/15 REVISION DONE OF PERITIONEAL DIALYSIS CATH. 08/15/17 0230 - Patient refusing to give further information at this time REMOVAL RETAINED PERITONEAL DIALYSIS CATHETER - ANESTHESIA Hx Anesthesia: Yes Hx Anesthesia Reactions: No Hx Malignant Hyperthermia: No Meds Allergies/Adverse Reactions: Allergies Allergy/AdvReac Type Severity Reaction Status Date / Time shrimp Allergy Severe RASH Verified 08/14/17 19:34 wool Allergy RASH Verified 09/11/17 08:35 - Medications Medications: Current Medications Acetaminophen (Tylenol 325mg Tab) 650 mg PO Q6 PRN PRN Reason: Pain, moderate (4-7) Last Admin: 09/19/17 20:15 Dose: 650 mg Aspirin (Ecotrin) 81 mg PO DAILY [facility] Last Admin: 09/17/17 10:10 Dose: 81 mg Benzocaine/Menthol (Cepacol Sore Throat) 1 poppy MT Q2H PRN PRN Reason: Sore Throat Last Admin: 09/17/17 10:11 Dose: 1 poppy Betamethasone/Clotrimazole (Lotrisone) 0 gm TOP BID [facility] Last Admin: 09/19/17 17:42 Dose: Not Given Calcium Acetate (Phoslo) 667 mg PO TIDCC [facility] Last Admin: 09/19/17 13:17 Dose: 667 mg Carvedilol (Coreg) 3.125 mg PO BID [facility] Last Admin: 09/19/17 17:39 Dose: 3.125 mg Dextrose (Dextrose 50% Inj) 25 ml IV Q4H PRN PRN Reason: Hypoglycemia Last Admin: 09/18/17 00:23 Dose: 25 ml Epoetin Alec (Procrit) 10,000 unit IV TTS [facility] Stop: 10/01/17 10:01 Last Admin: 09/19/17 12:14 Dose: 10,000 unit Famotidine (Pepcid) 20 mg IVP DAILY [facility] Last Admin: 09/19/17 13:17 Dose: 20 mg Gabapentin (Neurontin) 200 mg PO Q12 [facility] Last Admin: 09/19/17 10:00 Dose: Not Given Heparin Sodium (Porcine) (Heparin) 5,000 units SC Q12 [facility] Last Admin: 09/17/17 21:44 Dose: 5,000 units Dextrose (Dextrose 5% In Water 1000 Ml) 1,000 mls @ 30 mls/hr IV .Q24H [facility] Last Admin: 09/19/17 08:09 Dose: 30 mls/hr Clindamycin Phosphate 300 mg/ (Sodium Chloride) 52 mls @ 100 mls/hr IVPB Q8H [facility] PRN Reason: Protocol Vancomycin/Sodium Chloride (Vancomycin 1 Gm/Ns 200 Ml) 1 gm in 200 mls @ 133 mls/hr IVPB TTS [facility] PRN Reason: Protocol Stop: 10/01/17 11:31 Insulin Glargine (Lantus) 15 unit SC [facility] Last Admin: 09/18/17 21:50 Dose: Not Given Insulin Human Regular (Novolin R) 0 unit SC Q6 [facility] PRN Reason: Protocol Last Admin: 09/19/17 17:09 Dose: Not Given Rosuvastatin Calcium (Crestor) 10 mg PO HS [facility] Last Admin: 09/18/17 21:52 Dose: 10 mg Vitamin B Complex/Vit C/Folic Acid (Nephro-Cony) 1 tab PO DAILY [facility] Last Admin: 09/19/17 13:17 Dose: 1 tab Physical Exam - Constitutional Appears: No Acute Distress - Head Exam Head Exam: NORMAL INSPECTION - Eye Exam Eye Exam: EOMI, PERRL - ENT Exam ENT Exam: Normal Oropharynx - Neck Exam Neck exam: Positive for: Normal Inspection - Respiratory Exam Respiratory Exam: Clear to Auscultation Bilateral - Cardiovascular Exam Cardiovascular Exam: REGULAR RHYTHM, +S1, +S2 - GI/Abdominal Exam GI & Abdominal Exam: Normal Bowel Sounds (Malik-Elkins DRAINING SEROSANGUINEOUS DRAINAGE WITH ABDOMINAL BINDER IN PLACE.), Soft - Extremities Exam Additional comments: BILATERAL BKA. - Neurological Exam Neurological exam: Alert, CN II-XII Intact, Oriented x3, Reflexes Normal - Psychiatric Exam Psychiatric exam: Normal Mood - Skin Skin Exam: Normal Color, Warm Results - Vital Signs Recent Vital Signs: Last Vital Signs Temp 98.8 F 09/19/17 16:00 Pulse 107 H 09/19/17 16:00 Resp 20 09/19/17 16:00 BP 180/81 H 09/19/17 16:00 Pulse Ox 95 09/19/17 16:00 - Labs Result Diagrams: 09/19/17 10:35 09/18/17 03:42 Labs: Laboratory Results - last 24 hr 09/18/17 09/18/17 09/19/17 21:41 22:25 01:59 WBC RBC Hgb 9.4 L Hct 28.1 L MCV MCH MCHC RDW Plt Count MPV Neut % (Auto) Lymph % (Auto) [place] % (Auto) Eos % (Auto) Baso % (Auto) Neut # (Auto) Lymph # (Auto) [place] # (Auto) Eos # (Auto) Baso # (Auto) Neutrophils % (Manual) Lymphocytes % (Manual) Monocytes % (Manual) Eosinophils % (Manual) Platelet Estimate Hypochromasia (manual) Poikilocytosis (manual Anisocytosis (manual) Target Cells POC Glucose (mg/dL) 76 74 09/19/17 09/19/17 09/19/17 06:32 10:35 11:17 WBC 8.4 RBC 2.65 L Hgb 8.9 L Hct 25.7 L MCV 96.9 MCH 33.7 H MCHC 34.8 RDW 15.2 H Plt Count 204 MPV 8.5 Neut % (Auto) 82.3 H Lymph % (Auto) 8.6 L [place] % (Auto) 6.6 Eos % (Auto) 2.0 Baso % (Auto) 0.5 Neut # (Auto) 6.9 Lymph # (Auto) 0.7 L [place] # (Auto) 0.5 Eos # (Auto) 0.2 Baso # (Auto) 0.0 Neutrophils % (Manual) 86 H Lymphocytes % (Manual) 8 L Monocytes % (Manual) 5 Eosinophils % (Manual) 1 Platelet Estimate Normal Hypochromasia (manual) Moderate Poikilocytosis (manual Slight Anisocytosis (manual) Slight Target Cells Slight POC Glucose (mg/dL) 80 93 09/19/17 16:53 WBC RBC Hgb Hct MCV MCH MCHC RDW Plt Count MPV Neut % (Auto) Lymph % (Auto) [place] % (Auto) Eos % (Auto) Baso % (Auto) Neut # (Auto) Lymph # (Auto) [place] # (Auto) Eos # (Auto) Baso # (Auto) Neutrophils % (Manual) Lymphocytes % (Manual) Monocytes % (Manual) Eosinophils % (Manual) Platelet Estimate Hypochromasia (manual) Poikilocytosis (manual Anisocytosis (manual) Target Cells POC Glucose (mg/dL) 129 H Assessment & Plan (1) Abscess of finger of right hand Assessment and Plan: PANCULTURE WOUND CULTURE RIGHT HAND 2ND FINGER. ESR. CRP. CONTINUE iv VANCOMYCIN 1 G POST-EACH HEMODIALYSIS TTS X 5 MORE DOSES. ADD IV CLEOCIN 300 MG iv PIGGYBACK EVERY 8 HOURLY.09/19/17. F/U VANCO TROUGH LEVEL PRIOR TO THE THIRD DOSE AND KEEP BETWEEN 10 AND 20. F/U CULTURES TO ADJUST ANTIBIOTICS. Status: Acute (2) ESRD (end stage renal disease) Assessment and Plan: PATIENT HAD HEMODIALYSIS TODAY. PATIENT FOR HEMODIALYSIS TTS. Status: Acute (3) PVD (peripheral vascular disease) Status: Acute (4) S/P BKA (below knee amputation) bilateral Status: Acute (5) Diabetes mellitus Status: Acute (6) HTN (hypertension) Status: Acute
[2017-09-19] MEDS: Clindamycin 300 MG in Sodium Chloride 0.9% 50 ML IVPB SCH (22:05)
--- NOTE | 2017-09-19 23:07 | CP.PCM.PN ---
Subjective - Date & Time of Evaluation Date of Evaluation: 09/19/17 Time of Evaluation: 23:05 - Subjective Subjective: spoke to pt in detail rt index finger has swelling and pain drainage noted spoke to hand surgery team xray noted pt is getting upset with on going pain still no bm on clear liquid concerned about having BM will f/u Objective - Vital Signs/Intake and Output Vital Signs (last 24 hours): Temp Pulse Resp BP Pulse Ox 98.8 F 107 H 20 180/81 H 95 09/19/17 16:00 09/19/17 16:00 09/19/17 16:00 09/19/17 16:00 09/19/17 16:00 Intake and Output: 09/19/17 09/20/17 18:59 06:59 Intake Total 240 Output Total 5 Balance 235 - Medications Medications: Current Medications Acetaminophen (Tylenol 325mg Tab) 650 mg PO Q6 PRN PRN Reason: Pain, moderate (4-7) Last Admin: 09/19/17 20:15 Dose: 650 mg Aspirin (Ecotrin) 81 mg PO DAILY [facility] Last Admin: 09/17/17 10:10 Dose: 81 mg Benzocaine/Menthol (Cepacol Sore Throat) 1 poppy MT Q2H PRN PRN Reason: Sore Throat Last Admin: 09/17/17 10:11 Dose: 1 poppy Betamethasone/Clotrimazole (Lotrisone) 0 gm TOP BID [facility] Last Admin: 09/19/17 17:42 Dose: Not Given Calcium Acetate (Phoslo) 667 mg PO TIDCC [facility] Last Admin: 09/19/17 13:17 Dose: 667 mg Carvedilol (Coreg) 3.125 mg PO BID [facility] Last Admin: 09/19/17 17:39 Dose: 3.125 mg Dextrose (Dextrose 50% Inj) 25 ml IV Q4H PRN PRN Reason: Hypoglycemia Last Admin: 09/18/17 00:23 Dose: 25 ml Epoetin Alec (Procrit) 10,000 unit IV TTS [facility] Stop: 10/01/17 10:01 Last Admin: 09/19/17 12:14 Dose: 10,000 unit Famotidine (Pepcid) 20 mg IVP DAILY [facility] Last Admin: 09/19/17 13:17 Dose: 20 mg Gabapentin (Neurontin) 200 mg PO Q12 [facility] Last Admin: 09/19/17 22:07 Dose: Not Given Heparin Sodium (Porcine) (Heparin) 5,000 units SC Q12 [facility] Last Admin: 09/17/17 21:44 Dose: 5,000 units Dextrose (Dextrose 5% In Water 1000 Ml) 1,000 mls @ 30 mls/hr IV .Q24H [facility] Last Admin: 09/19/17 08:09 Dose: 30 mls/hr Clindamycin Phosphate 300 mg/ (Sodium Chloride) 52 mls @ 100 mls/hr IVPB Q8H [facility] PRN Reason: Protocol Last Admin: 09/19/17 22:05 Dose: 100 mls/hr Vancomycin/Sodium Chloride (Vancomycin 1 Gm/Ns 200 Ml) 1 gm in 200 mls @ 133 mls/hr IVPB TTS [facility] PRN Reason: Protocol Stop: 10/01/17 11:31 Insulin Glargine (Lantus) 15 unit SC HS [facility] Last Admin: 09/18/17 21:50 Dose: Not Given Insulin Human Regular (Novolin R) 0 unit SC Q6 [facility] PRN Reason: Protocol Last Admin: 09/19/17 17:09 Dose: Not Given Rosuvastatin Calcium (Crestor) 10 mg PO HS [facility] Last Admin: 09/19/17 22:07 Dose: 10 mg Vitamin B Complex/Vit C/Folic Acid (Nephro-Cony) 1 tab PO DAILY [facility] Last Admin: 09/19/17 13:17 Dose: 1 tab - Labs Labs: 09/19/17 10:35 09/18/17 03:42 PT 14.9 SECONDS (9.7-12.2) H 09/18/17 03:42 INR 1.3 09/18/17 03:42 APTT 35 SECONDS (21-34) H 09/18/17 03:42
[2017-09-20] MEDS: (Novolin R) Insulin Human Regular 100 units/ml vial SC SCH ×4 (01:11→23:41)
[2017-09-20] MEDS: Clindamycin 300 MG in Sodium Chloride 0.9% 50 ML IVPB SCH ×4 (06:12→22:11)
--- NOTE | 2017-09-20 09:25 | RAD ---
PROCEDURE: Right Index finger radiographs. HISTORY: 2nd digit distal phalynx crush injury COMPARISON: None. TECHNIQUE: AP radiograph of the right hand, as well as spot oblique and lateral images of index finger were obtained. FINDINGS: RIGHT INDEX FINGER: Soft tissue injury distal tuft. Remainder of the right hand (as seen on the AP view) grossly intact. JOINTS: Normal. SOFT TISSUES: Soft tissue injury distal tuft index finger. No visulaized radiopaque/visualized foreign body. OTHER FINDINGS: Vascular calcifications identified. IMPRESSION: Soft tissue swelling without acute articular or osseous abnormality.
--- NOTE | 2017-09-20 09:29 | CP.PCM.PN ---
Subjective - Date & Time of Evaluation Date of Evaluation: 09/20/17 Time of Evaluation: 06:50 - Subjective Subjective: General surgery progress note for Dr. Cristopher Oh, PGY-1 Pt S & E at bedside. Pt reports continued abdominal pain, is tolerating CLD, Right first digit pain s /p bedside I & D. Denies N & V, F & c, flatus, BM. Roel with 2cc/12H. Objective - Vital Signs/Intake and Output Vital Signs (last 24 hours): Temp Pulse Resp BP Pulse Ox 99.4 F 100 H 20 173/91 H 96 09/20/17 08:00 09/20/17 08:00 09/20/17 08:00 09/20/17 08:00 09/20/17 08:00 Intake and Output: 09/20/17 09/20/17 06:59 18:59 Intake Total 270 Output Total 2 Balance 268 - Medications Medications: Current Medications Acetaminophen (Tylenol 325mg Tab) 650 mg PO Q6 PRN PRN Reason: Pain, moderate (4-7) Last Admin: 09/19/17 20:15 Dose: 650 mg Aspirin (Ecotrin) 81 mg PO DAILY [facility] Last Admin: 09/17/17 10:10 Dose: 81 mg Benzocaine/Menthol (Cepacol Sore Throat) 1 poppy MT Q2H PRN PRN Reason: Sore Throat Last Admin: 09/17/17 10:11 Dose: 1 poppy Betamethasone/Clotrimazole (Lotrisone) 0 gm TOP BID [facility] Last Admin: 09/19/17 17:42 Dose: Not Given Calcium Acetate (Phoslo) 667 mg PO TIDCC [facility] Last Admin: 09/20/17 08:36 Dose: 667 mg Carvedilol (Coreg) 3.125 mg PO BID [facility] Last Admin: 09/19/17 17:39 Dose: 3.125 mg Dextrose (Dextrose 50% Inj) 25 ml IV Q4H PRN PRN Reason: Hypoglycemia Last Admin: 09/18/17 00:23 Dose: 25 ml Epoetin Alec (Procrit) 10,000 unit IV TTS [facility] Stop: 10/01/17 10:01 Last Admin: 09/19/17 12:14 Dose: 10,000 unit Famotidine (Pepcid) 20 mg IVP DAILY [facility] Last Admin: 09/19/17 13:17 Dose: 20 mg Gabapentin (Neurontin) 200 mg PO Q12 [facility] Last Admin: 09/19/17 22:07 Dose: Not Given Heparin Sodium (Porcine) (Heparin) 5,000 units SC Q12 [facility] Last Admin: 09/17/17 21:44 Dose: 5,000 units Clindamycin Phosphate 300 mg/ (Sodium Chloride) 52 mls @ 100 mls/hr IVPB Q8H [facility] PRN Reason: Protocol Last Admin: 09/20/17 06:12 Dose: 100 mls/hr Vancomycin/Sodium Chloride (Vancomycin 1 Gm/Ns 200 Ml) 1 gm in 200 mls @ 133 mls/hr IVPB TTS [facility] PRN Reason: Protocol Stop: 10/01/17 11:31 Insulin Glargine (Lantus) 15 unit SC HS [facility] Last Admin: 09/18/17 21:50 Dose: Not Given Insulin Human Regular (Novolin R) 0 unit SC Q6 [facility] PRN Reason: Protocol Last Admin: 09/20/17 01:11 Dose: Not Given Rosuvastatin Calcium (Crestor) 10 mg PO HS [facility] Last Admin: 09/19/17 22:07 Dose: 10 mg Vitamin B Complex/Vit C/Folic Acid (Nephro-Cony) 1 tab PO DAILY [facility] Last Admin: 09/19/17 13:17 Dose: 1 tab - Labs Labs: 09/19/17 10:35 09/18/17 03:42 PT 14.9 SECONDS (9.7-12.2) H 09/18/17 03:42 INR 1.3 09/18/17 03:42 APTT 35 SECONDS (21-34) H 09/18/17 03:42 - Constitutional Appears: Non-toxic, No Acute Distress - Head Exam Head Exam: ATRAUMATIC, NORMAL INSPECTION, NORMOCEPHALIC - Eye Exam Eye Exam: EOMI, Normal appearance - ENT Exam ENT Exam: Mucous Membranes Moist, Normal Exam - Neck Exam Neck Exam: Full ROM, Normal Inspection - Respiratory Exam Respiratory Exam: NORMAL BREATHING PATTERN - Cardiovascular Exam Cardiovascular Exam: REGULAR RHYTHM, +S1, +S2 - GI/Abdominal Exam GI & Abdominal Exam: Soft, Tenderness (diffusely), Normal Bowel Sounds. absent : Distended, Firm, Guarding, Rigid Additional comments: Roel with minimal sanguinous output - Extremities Exam Extremities Exam: absent: Normal Inspection (B/L BKA, Right digit with dressing in place - clean/dry/intact) - Neurological Exam Neurological Exam: Alert, Awake, CN II-XII Intact, Oriented x3 - Psychiatric Exam Psychiatric exam: Normal Affect, Normal Mood - Skin Skin Exam: Dry, Intact, Normal Color, Warm Assessment and Plan - Assessment and Plan (Free Text) Assessment: 51F POD#4 s/p reversal of ileostomy Plan: Cont CLD Monitor for bowel function Pain control PRN Anti-emetic PRN post I & D with hand surgery for R 1st digit Further mgmt as per primary, other consult teams Will DW attending Althea, PGY-1
--- NOTE | 2017-09-20 10:25 | CP.PCM.PN ---
Subjective - Date & Time of Evaluation Date of Evaluation: 09/20/17 Time of Evaluation: 10:23 - Subjective Subjective: c/o not passing gas. +abdominal pain 10 point ROS obtained, npo fevers chills sob cp dizziness nausea vomiting headache weakness or numbness hd yesterday unremarkable Objective - Vital Signs/Intake and Output Vital Signs (last 24 hours): Temp Pulse Resp BP Pulse Ox 99.4 F 100 H 20 173/91 H 96 09/20/17 08:00 09/20/17 08:00 09/20/17 08:00 09/20/17 08:00 09/20/17 08:00 Intake and Output: 09/20/17 09/20/17 06:59 18:59 Intake Total 270 Output Total 2 Balance 268 - Medications Medications: Current Medications Acetaminophen (Tylenol 325mg Tab) 650 mg PO Q6 PRN PRN Reason: Pain, moderate (4-7) Last Admin: 09/19/17 20:15 Dose: 650 mg Aspirin (Ecotrin) 81 mg PO DAILY [facility] Last Admin: 09/17/17 10:10 Dose: 81 mg Benzocaine/Menthol (Cepacol Sore Throat) 1 poppy MT Q2H PRN PRN Reason: Sore Throat Last Admin: 09/17/17 10:11 Dose: 1 poppy Betamethasone/Clotrimazole (Lotrisone) 0 gm TOP BID [facility] Last Admin: 09/19/17 17:42 Dose: Not Given Calcium Acetate (Phoslo) 667 mg PO TIDCC [facility] Last Admin: 09/20/17 08:36 Dose: 667 mg Carvedilol (Coreg) 3.125 mg PO BID [facility] Last Admin: 09/19/17 17:39 Dose: 3.125 mg Dextrose (Dextrose 50% Inj) 25 ml IV Q4H PRN PRN Reason: Hypoglycemia Last Admin: 09/18/17 00:23 Dose: 25 ml Epoetin Alec (Procrit) 10,000 unit IV TTS [facility] Stop: 10/01/17 10:01 Last Admin: 09/19/17 12:14 Dose: 10,000 unit Famotidine (Pepcid) 20 mg IVP DAILY [facility] Last Admin: 09/19/17 13:17 Dose: 20 mg Gabapentin (Neurontin) 200 mg PO Q12 [facility] Last Admin: 09/19/17 22:07 Dose: Not Given Heparin Sodium (Porcine) (Heparin) 5,000 units SC Q12 [facility] Last Admin: 09/17/17 21:44 Dose: 5,000 units Clindamycin Phosphate 300 mg/ (Sodium Chloride) 52 mls @ 100 mls/hr IVPB Q8H [facility] PRN Reason: Protocol Last Admin: 09/20/17 06:12 Dose: 100 mls/hr Vancomycin/Sodium Chloride (Vancomycin 1 Gm/Ns 200 Ml) 1 gm in 200 mls @ 133 mls/hr IVPB TTS [facility] PRN Reason: Protocol Stop: 10/01/17 11:31 Insulin Glargine (Lantus) 15 unit SC HS [facility] Last Admin: 09/18/17 21:50 Dose: Not Given Insulin Human Regular (Novolin R) 0 unit SC Q6 [facility] PRN Reason: Protocol Last Admin: 09/20/17 01:11 Dose: Not Given Rosuvastatin Calcium (Crestor) 10 mg PO HS [facility] Last Admin: 09/19/17 22:07 Dose: 10 mg Vitamin B Complex/Vit C/Folic Acid (Nephro-Cony) 1 tab PO DAILY [facility] Last Admin: 09/19/17 13:17 Dose: 1 tab - Labs Labs: 09/19/17 10:35 09/18/17 03:42 PT 14.9 SECONDS (9.7-12.2) H 09/18/17 03:42 INR 1.3 09/18/17 03:42 APTT 35 SECONDS (21-34) H 09/18/17 03:42 - Constitutional Appears: Non-toxic, No Acute Distress, Chronically Ill - Head Exam Head Exam: NORMAL INSPECTION, NORMOCEPHALIC - Eye Exam Eye Exam: Normal appearance, PERRL - ENT Exam ENT Exam: Mucous Membranes Moist, Normal Exam - Neck Exam Neck Exam: Full ROM, Normal Inspection - Respiratory Exam Respiratory Exam: Clear to Ausculation Bilateral, NORMAL BREATHING PATTERN - Cardiovascular Exam Cardiovascular Exam: REGULAR RHYTHM, RRR - GI/Abdominal Exam GI & Abdominal Exam: Distended, Soft (binder in place) - Extremities Exam Extremities Exam: Normal Inspection (b/l amputee. rt chest permcath) - Neurological Exam Neurological Exam: Alert, Awake, Oriented x3 - Psychiatric Exam Psychiatric exam: Normal Affect, Normal Mood - Skin Skin Exam: Intact, Normal Color Assessment and Plan (1) End stage renal disease Status: Acute (2) Hypotension Status: Acute (3) PVD (peripheral vascular disease) Status: Acute (4) S/P BKA (below knee amputation) bilateral Status: Acute (5) Colostomy complication, unspecified Status: Acute - Assessment and Plan (Free Text) Assessment: maintain hd tts anabela w/ hd advance diet per surgery
[2017-09-20] MEDS: Multivitamin Vitamin B Complex (Nephro-Vite) Tab PO SCH (11:00)
--- NOTE | 2017-09-20 11:55 | RAD ---
HISTORY: ilieus COMPARISON: No prior. FINDINGS: BOWEL: No evidence bowel obstruction. No free intraperitoneal air. No masses. There is a catheter in the pelvis, uncertain significance. Extensive atherosclerotic aortoiliac calcification. Renal arterial calcification. Midline surgical reyes. BONES: Normal. OTHER FINDINGS: None. IMPRESSION: No evidence of bowel obstruction.
[2017-09-20 12:26] LABS: BASO % 0.5 % (0.0-2.0); EOS # 0.2 K/uL (0.0-0.7); EOS % 2.5 % (0.0-4.0); HEMOGLOBIN 8.4 g/dL (11.0-16.0); LYMPH % 10.5 % (20.0-40.0); MEAN CELL VOLUME 97.5 fL (81.0-99.0); MEAN CORPUSCULAR HEMOGLOBIN 33.2 pg (27.0-31.0); MEAN CORPUSCULAR HGB CONC 34.1 g/dL (33.0-37.0); MEAN PLATELET VOLUME 8.8 fL (7.2-11.7); MONO # 0.8 K/uL (0.0-0.8); MONO % 8.9 % (0.0-10.0); NEUT # 7.1 K/uL (1.8-7.0); NEUT % 77.6 % (50.0-75.0); RBC 2.54 Mil/uL (3.80-5.20); RED CELL DISTRIBUTION WIDTH 14.1 % (11.5-14.5); WHITE BLOOD COUNT 9.1 K/uL (4.8-10.8)
--- NOTE | 2017-09-20 12:27 | CP.PCM.PN ---
Subjective - Date & Time of Evaluation Date of Evaluation: 09/20/17 Time of Evaluation: 12:25 - Subjective Subjective: Ortho f/u Dr. Luo Patient still complaining of pain in her right index fingers. She says it feels a little better. At first she refuses exam, and then consents to it. She has not soaked finger today. Encouraged patient to soak several times daily. No new complaints. She says her nail always grows crooked on that finger.She denies any further drainage or injury since last exam. Review of Systems - Review of Systems All systems: reviewed and no additional remarkable complaints except - Constitutional Additional comments: denies fever/chills - Cardiovascular Cardiovascular: UNREMARKABLE - Respiratory Respiratory: UNREMARKABLE - Gastrointestinal Gastrointestinal: UNREMARKABLE - Musculoskeletal Musculoskeletal: As Par HPI - Integumentary Integumentary: As Per HPI - Neurological Neurological: UNREMARKABLE - Hematologic/Lymphatic Hematologic: UNREMARKABLE Objective - Vital Signs/Intake and Output Vital Signs (last 24 hours): Temp Pulse Resp BP Pulse Ox 99.4 F 100 H 20 173/91 H 96 09/20/17 08:00 09/20/17 08:00 09/20/17 08:00 09/20/17 08:00 09/20/17 08:00 Intake and Output: 09/20/17 09/20/17 06:59 18:59 Intake Total 270 Output Total 2 Balance 268 - Medications Medications: Current Medications Acetaminophen (Tylenol 325mg Tab) 650 mg PO Q6 PRN PRN Reason: Pain, moderate (4-7) Last Admin: 09/19/17 20:15 Dose: 650 mg Aspirin (Ecotrin) 81 mg PO DAILY [facility] Last Admin: 09/17/17 10:10 Dose: 81 mg Benzocaine/Menthol (Cepacol Sore Throat) 1 poppy MT Q2H PRN PRN Reason: Sore Throat Last Admin: 09/17/17 10:11 Dose: 1 poppy Betamethasone/Clotrimazole (Lotrisone) 0 gm TOP BID [facility] Last Admin: 09/19/17 17:42 Dose: Not Given Calcium Acetate (Phoslo) 667 mg PO TIDCC [facility] Last Admin: 09/20/17 11:54 Dose: 667 mg Carvedilol (Coreg) 3.125 mg PO BID [facility] Last Admin: 09/20/17 11:00 Dose: 3.125 mg Dextrose (Dextrose 50% Inj) 25 ml IV Q4H PRN PRN Reason: Hypoglycemia Last Admin: 09/18/17 00:23 Dose: 25 ml Epoetin Alec (Procrit) 10,000 unit IV TTS [facility] Stop: 10/01/17 10:01 Last Admin: 09/19/17 12:14 Dose: 10,000 unit Famotidine (Pepcid) 20 mg IVP DAILY [facility] Last Admin: 09/19/17 13:17 Dose: 20 mg Gabapentin (Neurontin) 200 mg PO Q12 [facility] Last Admin: 09/20/17 11:00 Dose: Not Given Heparin Sodium (Porcine) (Heparin) 5,000 units SC Q12 [facility] Last Admin: 09/17/17 21:44 Dose: 5,000 units Clindamycin Phosphate 300 mg/ (Sodium Chloride) 52 mls @ 100 mls/hr IVPB Q8H [facility] PRN Reason: Protocol Last Admin: 09/20/17 06:12 Dose: 100 mls/hr Vancomycin/Sodium Chloride (Vancomycin 1 Gm/Ns 200 Ml) 1 gm in 200 mls @ 133 mls/hr IVPB TTS [facility] PRN Reason: Protocol Stop: 10/01/17 11:31 Insulin Glargine (Lantus) 15 unit SC [facility] Last Admin: 09/18/17 21:50 Dose: Not Given Insulin Human Regular (Novolin R) 0 unit SC Q6 [facility] PRN Reason: Protocol Last Admin: 09/20/17 01:11 Dose: Not Given Rosuvastatin Calcium (Crestor) 10 mg PO HS [facility] Last Admin: 09/19/17 22:07 Dose: 10 mg Vitamin B Complex/Vit C/Folic Acid (Nephro-Cony) 1 tab PO DAILY [facility] Last Admin: 09/20/17 11:00 Dose: 1 tab - Labs Labs: 09/19/17 10:35 09/18/17 03:42 PT 14.9 SECONDS (9.7-12.2) H 09/18/17 03:42 INR 1.3 09/18/17 03:42 APTT 35 SECONDS (21-34) H 09/18/17 03:42 - Constitutional Appears: Well, No Acute Distress - Head Exam Head Exam: ATRAUMATIC - Neck Exam Neck Exam: Full ROM, Normal Inspection - Respiratory Exam Respiratory Exam: NORMAL BREATHING PATTERN - Extremities Exam Additional comments: Right index finger: dried blood only today. Swelling has improved since yesterday, no active drainage, no fluctuance noted. stringing machine tender. No drainage noted on dressing. Patient instructed to soak - Neurological Exam Neurological Exam: Alert, Awake, Oriented x3 Neuro motor strength exam: Right Upper Extremity: 5 - Psychiatric Exam Psychiatric exam: Normal Affect, Normal Mood - Skin Skin Exam: Warm Additional comments: less swelling to finger still +erythema Assessment and Plan (1) Abscess of finger of right hand Assessment & Plan: xrays show some loss of tuft of index finger as compared to last xrays 2 months ago, suspect chronic infection actively draining yesterday Today finger less swollen and dry continue soaks, antibiotics as per ID elevation monitor at this time per Dr. Luo with soaks, dressing changes, IV antibiotics per ID Status: Acute Radiology Interpretation - Wildlife Enforcement Major Wildlife Enforcement Major:: Radiologist, Television News Producer - Study type Study type:: Plain films - Body Region Body Region:: Upper extremeties - Notes: Notes:: Right index finger 3 views: 09/19/2017 no fracture appreciated. When compared to xrays 07/29/2017, there is some noted deformity/loss of bone appreciated at tuft of index finger distal phalanx. This may be indicative of chronic infection/ osteomyelitis. - Radiology Interpretation #2 Interpretation: atient Name / ID : FAB STOUT T / [id number] Exam Date : 09/19/2017 17:57:48 ( Approved ) Study Comment : Sex / Age : F / 51Y Creator : Gigi Venegas MD Dictator : Gigi Venegas MD Ext Js Developer : Stock Cutter : Gigi Venegas MD Approver2 : Report Date : 09/20/2017 09:24:04 My Comment : PROCEDURE: Right Index finger radiographs. HISTORY: 2nd digit distal phalynx crush injury COMPARISON: None. TECHNIQUE: AP radiograph of the right hand, as well as spot oblique and lateral images of index finger were obtained. FINDINGS: RIGHT INDEX FINGER: Soft tissue injury distal tuft. Remainder of the right hand (as seen on the AP view) grossly intact. JOINTS: Normal. SOFT TISSUES: Soft tissue injury distal tuft index finger. No visulaized radiopaque/ visualized foreign body. OTHER FINDINGS: Vascular calcifications identified. IMPRESSION: Soft tissue swelling without acute articular or osseous abnormality.
[2017-09-20 12:38] LABS: ALB/GLOB RATIO 0.9 (1.0-2.1); ALBUMIN 3.2 g/dL (3.5-5.0); ALT/SGPT < 6 U/L (9-52); AST/SGOT 20 U/L (14-36); BLOOD UREA NITROGEN 22 mg/dL (7-17); CALCIUM 8.7 mg/dl (8.6-10.4); GFR AFRICAN-AMERICAN 9; GFR NON-AFRICAN AMERICAN 8
[2017-09-20] MEDS: Clotrimazole/Betamethasone Cream(15 gm) TOP SCH ×2 (15:02→19:22)
[2017-09-20] MEDS: (Lantus) Insulin Glargine, Recombinant SC SCH (22:19)
[2017-09-21] MEDS: Clindamycin 300 MG in Sodium Chloride 0.9% 50 ML IVPB SCH (05:53)
--- NOTE | 2017-09-21 06:14 | CP.PCM.PN ---
Subjective - Date & Time of Evaluation Date of Evaluation: 09/21/17 Time of Evaluation: 05:50 - Subjective Subjective: General surgery progress note for Dr. Cristopher Oh, PGY-1 Pt S & E at bedside. Pt continues to c/o of abdominal pain, mostly when being mobilized. Reports flatus and BM over last 24H. Is tolerating CLD. Denies N & V, F & C. Roel with scant sanguinous output. Per nursing, pt c/o of dressing not being changed. Objective - Vital Signs/Intake and Output Vital Signs (last 24 hours): Temp Pulse Resp BP Pulse Ox 99.1 F 94 H 20 179/82 H 100 09/20/17 23:10 09/20/17 23:10 09/20/17 23:10 09/20/17 23:10 09/20/17 23:10 Intake and Output: 09/20/17 09/21/17 18:59 06:59 Intake Total 540 170 Output Total 4 2 Balance 536 168 - Medications Medications: Current Medications Acetaminophen (Tylenol 325mg Tab) 650 mg PO Q6 PRN PRN Reason: Pain, moderate (4-7) Last Admin: 09/19/17 20:15 Dose: 650 mg Aspirin (Ecotrin) 81 mg PO DAILY [facility] Last Admin: 09/17/17 10:10 Dose: 81 mg Benzocaine/Menthol (Cepacol Sore Throat) 1 poppy MT Q2H PRN PRN Reason: Sore Throat Last Admin: 09/17/17 10:11 Dose: 1 poppy Betamethasone/Clotrimazole (Lotrisone) 0 gm TOP BID [facility] Last Admin: 09/20/17 19:22 Dose: 1 applic Calcium Acetate (Phoslo) 667 mg PO TIDCC [facility] Last Admin: 09/20/17 18:00 Dose: Not Given Carvedilol (Coreg) 3.125 mg PO BID [facility] Last Admin: 09/20/17 18:54 Dose: 3.125 mg Dextrose (Dextrose 50% Inj) 25 ml IV Q4H PRN PRN Reason: Hypoglycemia Last Admin: 09/18/17 00:23 Dose: 25 ml Epoetin Alec (Procrit) 10,000 unit IV TTS [facility] Stop: 10/01/17 10:01 Last Admin: 09/19/17 12:14 Dose: 10,000 unit Famotidine (Pepcid) 20 mg IVP DAILY [facility] Last Admin: 09/20/17 11:00 Dose: 20 mg Gabapentin (Neurontin) 200 mg PO Q12 [facility] Last Admin: 09/20/17 22:19 Dose: Not Given Heparin Sodium (Porcine) (Heparin) 5,000 units SC Q12 [facility] Last Admin: 09/17/17 21:44 Dose: 5,000 units Clindamycin Phosphate 300 mg/ (Sodium Chloride) 52 mls @ 100 mls/hr IVPB Q8H [facility] PRN Reason: Protocol Last Admin: 09/21/17 05:53 Dose: 100 mls/hr Vancomycin/Sodium Chloride (Vancomycin 1 Gm/Ns 200 Ml) 1 gm in 200 mls @ 133 mls/hr IVPB TTS [facility] PRN Reason: Protocol Stop: 10/01/17 11:31 Insulin Glargine (Lantus) 15 unit SC HS [facility] Last Admin: 09/20/17 22:19 Dose: Not Given Insulin Human Regular (Novolin R) 0 unit SC Q6 [facility] PRN Reason: Protocol Last Admin: 09/20/17 23:41 Dose: Not Given Rosuvastatin Calcium (Crestor) 10 mg PO HS [facility] Last Admin: 09/20/17 22:19 Dose: Not Given Vitamin B Complex/Vit C/Folic Acid (Nephro-Cony) 1 tab PO DAILY [facility] Last Admin: 09/20/17 11:00 Dose: 1 tab - Labs Labs: 09/20/17 12:11 09/20/17 12:11 PT 14.9 SECONDS (9.7-12.2) H 09/18/17 03:42 INR 1.3 09/18/17 03:42 APTT 35 SECONDS (21-34) H 09/18/17 03:42 - Constitutional Appears: Non-toxic, No Acute Distress - Head Exam Head Exam: ATRAUMATIC, NORMAL INSPECTION, NORMOCEPHALIC - Eye Exam Eye Exam: EOMI, Normal appearance - ENT Exam ENT Exam: Mucous Membranes Moist, Normal Exam - Neck Exam Neck Exam: Full ROM, Normal Inspection - Respiratory Exam Respiratory Exam: NORMAL BREATHING PATTERN - Cardiovascular Exam Cardiovascular Exam: REGULAR RHYTHM, +S1, +S2 - GI/Abdominal Exam GI & Abdominal Exam: Soft, Tenderness (mild, over midline incision). absent: Distended, Firm, Guarding, Rigid Additional comments: Dressing with sanguinous saturation distally, Roel with scant sanguinous output /clot - Extremities Exam Extremities Exam: absent: Normal Inspection (B/L BKA, Right 1st digit with dressing in place- clean/dry/intact) - Neurological Exam Neurological Exam: Alert, Awake, CN II-XII Intact, Oriented x3 - Psychiatric Exam Psychiatric exam: Normal Affect, Normal Mood - Skin Skin Exam: Dry, Intact, Normal Color, Warm Assessment and Plan - Assessment and Plan (Free Text) Assessment: 51F POD#5 s/p reversal of ileostomy Plan: Midline dressing changed Pain control PRN Anti-emetic PRN Cont PT/mobilization Monitor drain output advanced to renal/diabetic diet monitor bowel function Encourage IS use DW attending [place], PGY-
[2017-09-21] MEDS: (Novolin R) Insulin Human Regular 100 units/ml vial SC SCH ×4 (07:24→23:57)
--- NOTE | 2017-09-21 09:17 | CP.PCM.PN ---
Subjective - Date & Time of Evaluation Date of Evaluation: 09/21/17 Time of Evaluation: 09:15 - Subjective Subjective: afebrile bp elevated awake alert comfortable had bm yesterday ROS no sob no nausea vomiting Objective - Vital Signs/Intake and Output Vital Signs (last 24 hours): Temp Pulse Resp BP Pulse Ox 99.8 F H 98 H 18 175/76 H 95 09/21/17 08:00 09/21/17 08:00 09/21/17 08:00 09/21/17 08:00 09/21/17 08:00 Intake and Output: 09/21/17 09/21/17 06:59 18:59 Intake Total 220 Output Total 12 Balance 208 - Medications Medications: Current Medications Acetaminophen (Tylenol 325mg Tab) 650 mg PO Q6 PRN PRN Reason: Pain, moderate (4-7) Last Admin: 09/19/17 20:15 Dose: 650 mg Aspirin (Ecotrin) 81 mg PO DAILY [facility] Last Admin: 09/17/17 10:10 Dose: 81 mg Benzocaine/Menthol (Cepacol Sore Throat) 1 poppy MT Q2H PRN PRN Reason: Sore Throat Last Admin: 09/17/17 10:11 Dose: 1 poppy Betamethasone/Clotrimazole (Lotrisone) 0 gm TOP BID [facility] Last Admin: 09/20/17 19:22 Dose: 1 applic Calcium Acetate (Phoslo) 667 mg PO TIDCC [facility] Last Admin: 09/21/17 09:08 Dose: 667 mg Carvedilol (Coreg) 3.125 mg PO BID [facility] Last Admin: 09/20/17 18:54 Dose: 3.125 mg Dextrose (Dextrose 50% Inj) 25 ml IV Q4H PRN PRN Reason: Hypoglycemia Last Admin: 09/18/17 00:23 Dose: 25 ml Epoetin Alec (Procrit) 10,000 unit IV TTS [facility] Stop: 10/01/17 10:01 Last Admin: 09/19/17 12:14 Dose: 10,000 unit Famotidine (Pepcid) 20 mg IVP DAILY [facility] Last Admin: 09/20/17 11:00 Dose: 20 mg Gabapentin (Neurontin) 200 mg PO Q12 [facility] Last Admin: 09/20/17 22:19 Dose: Not Given Heparin Sodium (Porcine) (Heparin) 5,000 units SC Q12 [facility] Last Admin: 09/17/17 21:44 Dose: 5,000 units Clindamycin Phosphate 300 mg/ (Sodium Chloride) 52 mls @ 100 mls/hr IVPB Q8H [facility] PRN Reason: Protocol Last Admin: 09/21/17 05:53 Dose: 100 mls/hr Vancomycin/Sodium Chloride (Vancomycin 1 Gm/Ns 200 Ml) 1 gm in 200 mls @ 133 mls/hr IVPB TTS [facility] PRN Reason: Protocol Stop: 10/01/17 11:31 Insulin Glargine (Lantus) 15 unit SC HS [facility] Last Admin: 09/20/17 22:19 Dose: Not Given Insulin Human Regular (Novolin R) 0 unit SC Q6 [facility] PRN Reason: Protocol Last Admin: 09/21/17 07:24 Dose: Not Given Rosuvastatin Calcium (Crestor) 10 mg PO HS [facility] Last Admin: 09/20/17 22:19 Dose: Not Given Vitamin B Complex/Vit C/Folic Acid (Nephro-Cony) 1 tab PO DAILY [facility] Last Admin: 09/20/17 11:00 Dose: 1 tab - Labs Labs: 09/20/17 12:11 09/20/17 12:11 PT 14.9 SECONDS (9.7-12.2) H 09/18/17 03:42 INR 1.3 09/18/17 03:42 APTT 35 SECONDS (21-34) H 09/18/17 03:42 - Constitutional Appears: No Acute Distress - ENT Exam ENT Exam: Mucous Membranes Moist - Respiratory Exam Respiratory Exam: Clear to Ausculation Bilateral, NORMAL BREATHING PATTERN - Cardiovascular Exam Cardiovascular Exam: REGULAR RHYTHM - GI/Abdominal Exam GI & Abdominal Exam: Soft. 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
[2017-09-21] MEDS ORDERED: Epoetin Alfa 10,000 unit/ml Dialysis IV SCH (10:00)
[2017-09-21] MEDS: Multivitamin Vitamin B Complex (Nephro-Vite) Tab PO SCH (10:13)
[2017-09-21] MEDS: Clotrimazole/Betamethasone Cream(15 gm) TOP SCH ×2 (10:14→18:30)
[2017-09-21] MEDS: Benzocaine/Menthol (Cepacol) Lozenge MT PRN (10:32)
[2017-09-21] MEDS: Epoetin Alfa 10,000 unit/ml Dialysis IV SCH (11:57)
[2017-09-21] MEDS: Vancomycin 1 gm/NS 200 ml 1 GM/200 ML BAG IVPB SCH (12:59)
[2017-09-21] MEDS: (Lantus) Insulin Glargine, Recombinant SC SCH (21:27)
[2017-09-21] MEDS ORDERED: oxyCODONE 5 mg Immediate Release Tab PO ONE (22:20)
--- NOTE | 2017-09-21 23:55 | CP.PCM.PN ---
Subjective - Date & Time of Evaluation Date of Evaluation: 09/21/17 Time of Evaluation: 23:55 - Subjective Subjective: AFEBRILE S/P HD TODAY STATES HAD A SMALL BM TODAY STILL C/O PAIN RT. INDEX FINGER. SHE DENIES ANY DRAINAGE OR ANY INJURIES SINCE HER LAST EXAM ORTH F/U NOTED. PT NOT SOAKING HER INDEX FINGER ADVISED BY ORTHO TOLERATING iv ANTIBIOTICS. NO IV LINE. 'wILL SWITCH TO PO CLEOCIN 300 MG BY MOUTH TWICE A DAY FOR 5 DAYS. cONTINUE iv VANCOMYCIN 1 G POST HEMODIALYSIS (TOTAL OF 6 DOSES ) Objective - Vital Signs/Intake and Output Vital Signs (last 24 hours): Temp Pulse Resp BP Pulse Ox 99.2 F 99 H 20 188/79 H 97 09/21/17 15:15 09/21/17 15:15 09/21/17 15:15 09/21/17 15:15 09/21/17 15:15 Intake and Output: 09/21/17 09/22/17 18:59 06:59 Intake Total 250 Output Total 7 Balance 243 - Medications Medications: Current Medications Acetaminophen (Tylenol 325mg Tab) 650 mg PO Q6 PRN PRN Reason: Pain, moderate (4-7) Last Admin: 09/19/17 20:15 Dose: 650 mg Aspirin (Ecotrin) 81 mg PO DAILY [facility] Last Admin: 09/17/17 10:10 Dose: 81 mg Benzocaine/Menthol (Cepacol Sore Throat) 1 poppy MT Q2H PRN PRN Reason: Sore Throat Last Admin: 09/21/17 10:32 Dose: 1 poppy Betamethasone/Clotrimazole (Lotrisone) 0 gm TOP BID [facility] Last Admin: 09/21/17 18:30 Dose: 1 applic Calcium Acetate (Phoslo) 667 mg PO TIDCC [facility] Last Admin: 09/21/17 18:27 Dose: 667 mg Carvedilol (Coreg) 3.125 mg PO BID [facility] Last Admin: 09/21/17 18:27 Dose: 3.125 mg Clindamycin HCl (Cleocin) 300 mg PO BID [facility] PRN Reason: Protocol Stop: 09/26/17 18:01 Last Admin: 09/21/17 18:27 Dose: 300 mg Dextrose (Dextrose 50% Inj) 25 ml IV Q4H PRN PRN Reason: Hypoglycemia Last Admin: 09/18/17 00:23 Dose: 25 ml Epoetin Alec (Procrit) 10,000 unit IV TTS [facility] Stop: 10/01/17 10:01 Last Admin: 09/21/17 11:57 Dose: 10,000 unit Famotidine (Pepcid) 20 mg IVP DAILY [facility] Last Admin: 09/21/17 10:15 Dose: Not Given Gabapentin (Neurontin) 200 mg PO Q12 [facility] Last Admin: 09/21/17 21:39 Dose: Not Given Heparin Sodium (Porcine) (Heparin) 5,000 units SC Q12 [facility] Last Admin: 09/21/17 21:38 Dose: Not Given Vancomycin/Sodium Chloride (Vancomycin 1 Gm/Ns 200 Ml) 1 gm in 200 mls @ 133 mls/hr IVPB TTS [facility] PRN Reason: Protocol Stop: 10/01/17 11:31 Last Admin: 09/21/17 12:59 Dose: 133 mls/hr Insulin Glargine (Lantus) 15 unit SC HS [facility] Last Admin: 09/21/17 21:27 Dose: 15 u Insulin Human Regular (Novolin R) 0 unit SC Q6 [facility] PRN Reason: Protocol Last Admin: 09/21/17 19:26 Dose: Not Given Rosuvastatin Calcium (Crestor) 10 mg PO HS [facility] Last Admin: 09/21/17 21:26 Dose: 10 mg Vitamin B Complex/Vit C/Folic Acid (Nephro-Cony) 1 tab PO DAILY [facility] Last Admin: 09/21/17 10:13 Dose: 1 tab - Labs Labs: 09/20/17 12:11 09/20/17 12:11 PT 14.9 SECONDS (9.7-12.2) H 09/18/17 03:42 INR 1.3 09/18/17 03:42 APTT 35 SECONDS (21-34) H 09/18/17 03:42 - Constitutional Appears: No Acute Distress - Head Exam Head Exam: NORMAL INSPECTION - Eye Exam Eye Exam: EOMI, PERRL - ENT Exam ENT Exam: Normal Oropharynx - Neck Exam Neck Exam: Normal Inspection - Respiratory Exam Respiratory Exam: Clear to Ausculation Bilateral - Cardiovascular Exam Cardiovascular Exam: REGULAR RHYTHM, +S1, +S2 - GI/Abdominal Exam GI & Abdominal Exam: Soft, Normal Bowel Sounds - Extremities Exam Additional comments: B/L BKA - Psychiatric Exam Psychiatric exam: Normal Mood - Skin Skin Exam: Normal Color, Warm Assessment and Plan (1) Abscess of finger of right hand Assessment & Plan: CONTINUE iv VANCOMYCIN 1 G POST-EACH HEMODIALYSIS TTS X TOTAL OF 6 DOSES DC IV CLEOCIN 300 MG iv PIGGYBACK EVERY 8 HOURLY.09/19/17. PO CLEOCIN 300MG PO TID X5 DAYS . LOCAL WOUND CARE PER ORTHO. Status: Acute (2) ESRD (end stage renal disease) Assessment & Plan: TTS HD Status: Acute (3) PVD (peripheral vascular disease) Status: Acute (4) S/P BKA (below knee amputation) bilateral Status: Acute (5) Diabetes mellitus Status: Acute (6) HTN (hypertension) Status: Acute
[2017-09-22] MEDS: (Novolin R) Insulin Human Regular 100 units/ml vial SC SCH ×3 (06:38→18:10)
[2017-09-22] MEDS: Oxycodone/Acetaminophen 5/325 mg Tab PO PRN ×2 (08:40→20:27)
--- NOTE | 2017-09-22 09:16 | CP.PCM.PN ---
Subjective - Date & Time of Evaluation Date of Evaluation: 09/22/17 Time of Evaluation: 07:40 - Subjective Subjective: Patient seen and examined at bedside this AM. no adverse events overnight. Patient states she is tolerating her diet well and had a BM and flatus yesterday. Patient denies any abdominal pain, nausea, or vomiting. On physical exam, patient had a small amount of sero-purulent drainage in the middle of the incision and a staple was removed to allow drainage. Objective - Vital Signs/Intake and Output Vital Signs (last 24 hours): Temp Pulse Resp BP Pulse Ox 98.8 F 93 H 18 181/76 H 96 09/22/17 07:35 09/22/17 08:40 09/22/17 07:35 09/22/17 08:40 09/22/17 07:35 Intake and Output: 09/22/17 09/22/17 06:59 18:59 Intake Total 250 Output Total 12 Balance 238 - Medications Medications: Current Medications Acetaminophen (Tylenol 325mg Tab) 650 mg PO Q6 PRN PRN Reason: Pain, moderate (4-7) Last Admin: 09/19/17 20:15 Dose: 650 mg Aspirin (Ecotrin) 81 mg PO DAILY [facility] Last Admin: 09/17/17 10:10 Dose: 81 mg Benzocaine/Menthol (Cepacol Sore Throat) 1 poppy MT Q2H PRN PRN Reason: Sore Throat Last Admin: 09/21/17 10:32 Dose: 1 poppy Betamethasone/Clotrimazole (Lotrisone) 0 gm TOP BID [facility] Last Admin: 09/21/17 18:30 Dose: 1 applic Calcium Acetate (Phoslo) 667 mg PO TIDCC [facility] Last Admin: 09/22/17 08:40 Dose: 667 mg Carvedilol (Coreg) 3.125 mg PO BID [facility] Last Admin: 09/21/17 18:27 Dose: 3.125 mg Clindamycin HCl (Cleocin) 300 mg PO BID [facility] PRN Reason: Protocol Stop: 09/26/17 18:01 Last Admin: 09/21/17 18:27 Dose: 300 mg Dextrose (Dextrose 50% Inj) 25 ml IV Q4H PRN PRN Reason: Hypoglycemia Last Admin: 09/18/17 00:23 Dose: 25 ml Epoetin Alec (Procrit) 10,000 unit IV TTS [facility] Stop: 10/01/17 10:01 Last Admin: 09/21/17 11:57 Dose: 10,000 unit Famotidine (Pepcid) 20 mg IVP DAILY [facility] Last Admin: 09/21/17 10:15 Dose: Not Given Gabapentin (Neurontin) 200 mg PO Q12 [facility] Last Admin: 09/21/17 21:39 Dose: Not Given Heparin Sodium (Porcine) (Heparin) 5,000 units SC Q12 [facility] Last Admin: 09/21/17 21:38 Dose: Not Given Vancomycin/Sodium Chloride (Vancomycin 1 Gm/Ns 200 Ml) 1 gm in 200 mls @ 133 mls/hr IVPB TTS [facility] PRN Reason: Protocol Stop: 10/01/17 11:31 Last Admin: 09/21/17 12:59 Dose: 133 mls/hr Insulin Glargine (Lantus) 15 unit SC HS [facility] Last Admin: 09/21/17 21:27 Dose: 15 u Insulin Human Regular (Novolin R) 0 unit SC Q6 [facility] PRN Reason: Protocol Last Admin: 09/22/17 06:38 Dose: Not Given Oxycodone/Acetaminophen (Percocet 5/325 Mg Tab) 1 tab PO Q4H PRN PRN Reason: Pain, moderate (4-7) Stop: 09/25/17 08:00 Last Admin: 09/22/17 08:40 Dose: 1 tab Rosuvastatin Calcium (Crestor) 10 mg PO HS [facility] Last Admin: 09/21/17 21:26 Dose: 10 mg Vitamin B Complex/Vit C/Folic Acid (Nephro-Cony) 1 tab PO DAILY [facility] Last Admin: 09/21/17 10:13 Dose: 1 tab - Labs Labs: 09/20/17 12:11 09/20/17 12:11 PT 14.9 SECONDS (9.7-12.2) H 09/18/17 03:42 INR 1.3 09/18/17 03:42 APTT 35 SECONDS (21-34) H 09/18/17 03:42 - Constitutional Appears: Well, Non-toxic, No Acute Distress - Head Exam Head Exam: ATRAUMATIC, NORMOCEPHALIC - Eye Exam Eye Exam: Normal appearance. absent: Conjunctival injection, Scleral icterus - ENT Exam ENT Exam: Mucous Membranes Moist, Normal Oropharynx - Respiratory Exam Respiratory Exam: NORMAL BREATHING PATTERN. absent: Accessory Muscle Use, Respiratory Distress - Cardiovascular Exam Cardiovascular Exam: RRR - GI/Abdominal Exam GI & Abdominal Exam: Soft, Tenderness (shaniqua-incisional). absent: Distended Additional comments: midline incision well approximated by reyes, small area of erythema in the middle of the incision with sanguinou-purulent drainage expressible. Small tract explored under the incision approximately 1cm in length. - Neurological Exam Neurological Exam: Alert, Awake, Oriented x3 - Psychiatric Exam Psychiatric exam: Normal Affect, Normal Mood - Skin Skin Exam: Dry, Intact, Normal Color, Warm Additional comments: except as noted above Assessment and Plan - Assessment and Plan (Free Text) Assessment: 51F POD#6 s/p reversal of ileostomy Plan: -Continue diet, monitoring for bowel function -Will continue to monitor incision--appears to be a small hematoma vs wound infection which will drain -Continue antibiotics -Continue management per primary -Roel drain discontinued today Discussed with Dr. Eduardo Dubon, PGY2
[2017-09-22] MEDS: Multivitamin Vitamin B Complex (Nephro-Vite) Tab PO SCH (10:59)
[2017-09-22] MEDS: Clotrimazole/Betamethasone Cream(15 gm) TOP SCH ×2 (11:00→18:03)
[2017-09-22] MEDS: Nystatin 100,000 Units/ml Oral Susp 5 ml UD PO SCH ×2 (17:55→23:57)
[2017-09-23] MEDS: (Lantus) Insulin Glargine, Recombinant SC SCH ×4 (00:22→23:49)
[2017-09-23] MEDS: Oxycodone/Acetaminophen 5/325 mg Tab PO PRN ×4 (00:23→21:41)
[2017-09-23] MEDS: (Novolin R) Insulin Human Regular 100 units/ml vial SC SCH ×6 (00:35→23:52)
[2017-09-23] MEDS: Nystatin 100,000 Units/ml Oral Susp 5 ml UD PO SCH ×4 (06:07→23:52)
--- NOTE | 2017-09-23 07:38 | CP.PCM.PN ---
Subjective - Date & Time of Evaluation Date of Evaluation: 09/11/17 Time of Evaluation: 07:37 - Subjective Subjective: spoke to the anesthesiologist. As per the anesthesiologist patient needs cardiology clearance. Meanwhile we will continue supportive care. Spoke to the surgeon. Objective - Vital Signs/Intake and Output Vital Signs (last 24 hours): Temp Pulse Resp BP Pulse Ox 99.7 F H 93 H 20 172/70 H 94 L 09/22/17 23:05 09/22/17 23:05 09/22/17 23:05 09/22/17 23:05 09/22/17 23:05 - Medications Medications: Current Medications Acetaminophen (Tylenol 325mg Tab) 650 mg PO Q6 PRN PRN Reason: Pain, moderate (4-7) Last Admin: 09/19/17 20:15 Dose: 650 mg Amlodipine Besylate (Norvasc) 5 mg PO DAILY [facility] Last Admin: 09/22/17 15:00 Dose: 5 mg Aspirin (Ecotrin) 81 mg PO DAILY [facility] Last Admin: 09/22/17 10:59 Dose: 81 mg Benzocaine/Menthol (Cepacol Sore Throat) 1 poppy MT Q2H PRN PRN Reason: Sore Throat Last Admin: 09/21/17 10:32 Dose: 1 poppy Betamethasone/Clotrimazole (Lotrisone) 0 gm TOP BID [facility] Last Admin: 09/22/17 18:03 Dose: Not Given Calcium Acetate (Phoslo) 667 mg PO TIDCC [facility] Last Admin: 09/22/17 17:55 Dose: 667 mg Carvedilol (Coreg) 3.125 mg PO BID [facility] Last Admin: 09/22/17 17:55 Dose: 3.125 mg Clindamycin HCl (Cleocin) 300 mg PO BID [facility] PRN Reason: Protocol Stop: 09/26/17 18:01 Last Admin: 09/22/17 17:55 Dose: 300 mg Dextrose (Dextrose 50% Inj) 25 ml IV Q4H PRN PRN Reason: Hypoglycemia Last Admin: 09/18/17 00:23 Dose: 25 ml Epoetin Alec (Procrit) 10,000 unit IV TTS [facility] Stop: 10/01/17 10:01 Last Admin: 09/21/17 11:57 Dose: 10,000 unit Famotidine (Pepcid) 20 mg PO DAILY [facility] Last Admin: 09/22/17 14:59 Dose: 20 mg Gabapentin (Neurontin) 200 mg PO Q12 [facility] Last Admin: 09/22/17 10:59 Dose: Not Given Heparin Sodium (Porcine) (Heparin) 5,000 units SC Q12 [facility] Last Admin: 09/23/17 00:21 Dose: 5,000 units Vancomycin/Sodium Chloride (Vancomycin 1 Gm/Ns 200 Ml) 1 gm in 200 mls @ 133 mls/hr IVPB TTS [facility] PRN Reason: Protocol Stop: 10/01/17 11:31 Last Admin: 09/21/17 12:59 Dose: 133 mls/hr Insulin Glargine (Lantus) 15 unit SC HS [facility] Last Admin: 09/23/17 00:22 Dose: 15 u Insulin Human Regular (Novolin R) 0 unit SC Q6 [facility] PRN Reason: Protocol Last Admin: 09/23/17 07:05 Dose: 2 unit Nystatin (Nystatin Oral Susp) 5 ml PO Q6 [facility] Last Admin: 09/23/17 06:07 Dose: 5 ml Oxycodone/Acetaminophen (Percocet 5/325 Mg Tab) 1 tab PO Q4H PRN PRN Reason: Pain, moderate (4-7) Stop: 09/25/17 08:00 Last Admin: 09/23/17 07:06 Dose: 1 tab Rosuvastatin Calcium (Crestor) 10 mg PO HS [facility] Last Admin: 09/22/17 21:46 Dose: 10 mg Vitamin B Complex/Vit C/Folic Acid (Nephro-Cony) 1 tab PO DAILY [facility] Last Admin: 09/22/17 10:59 Dose: 1 tab - Labs Labs: 09/20/17 12:11 09/20/17 12:11 PT 14.9 SECONDS (9.7-12.2) H 09/18/17 03:42 INR 1.3 09/18/17 03:42 APTT 35 SECONDS (21-34) H 09/18/17 03:42
--- NOTE | 2017-09-23 07:38 | CP.PCM.PN ---
Subjective - Date & Time of Evaluation Date of Evaluation: 09/12/17 Time of Evaluation: 07:38 - Subjective Subjective: patient underwent stress tested. I spoke to the warp knitter helper to Will be scheduled for clearance. Continue to have pain. Vital signs stable for hemodialysis Objective - Vital Signs/Intake and Output Vital Signs (last 24 hours): Temp Pulse Resp BP Pulse Ox 99.7 F H 93 H 20 172/70 H 94 L 09/22/17 23:05 09/22/17 23:05 09/22/17 23:05 09/22/17 23:05 09/22/17 23:05 - Medications Medications: Current Medications Acetaminophen (Tylenol 325mg Tab) 650 mg PO Q6 PRN PRN Reason: Pain, moderate (4-7) Last Admin: 09/19/17 20:15 Dose: 650 mg Amlodipine Besylate (Norvasc) 5 mg PO DAILY [facility] Last Admin: 09/22/17 15:00 Dose: 5 mg Aspirin (Ecotrin) 81 mg PO DAILY [facility] Last Admin: 09/22/17 10:59 Dose: 81 mg Benzocaine/Menthol (Cepacol Sore Throat) 1 poppy MT Q2H PRN PRN Reason: Sore Throat Last Admin: 09/21/17 10:32 Dose: 1 poppy Betamethasone/Clotrimazole (Lotrisone) 0 gm TOP BID [facility] Last Admin: 09/22/17 18:03 Dose: Not Given Calcium Acetate (Phoslo) 667 mg PO TIDCC [facility] Last Admin: 09/22/17 17:55 Dose: 667 mg Carvedilol (Coreg) 3.125 mg PO BID [facility] Last Admin: 09/22/17 17:55 Dose: 3.125 mg Clindamycin HCl (Cleocin) 300 mg PO BID [facility] PRN Reason: Protocol Stop: 09/26/17 18:01 Last Admin: 09/22/17 17:55 Dose: 300 mg Dextrose (Dextrose 50% Inj) 25 ml IV Q4H PRN PRN Reason: Hypoglycemia Last Admin: 09/18/17 00:23 Dose: 25 ml Epoetin Alec (Procrit) 10,000 unit IV TTS [facility] Stop: 10/01/17 10:01 Last Admin: 09/21/17 11:57 Dose: 10,000 unit Famotidine (Pepcid) 20 mg PO DAILY [facility] Last Admin: 09/22/17 14:59 Dose: 20 mg Gabapentin (Neurontin) 200 mg PO Q12 [facility] Last Admin: 09/22/17 10:59 Dose: Not Given Heparin Sodium (Porcine) (Heparin) 5,000 units SC Q12 [facility] Last Admin: 09/23/17 00:21 Dose: 5,000 units Vancomycin/Sodium Chloride (Vancomycin 1 Gm/Ns 200 Ml) 1 gm in 200 mls @ 133 mls/hr IVPB TTS [facility] PRN Reason: Protocol Stop: 10/01/17 11:31 Last Admin: 09/21/17 12:59 Dose: 133 mls/hr Insulin Glargine (Lantus) 15 unit SC HS [facility] Last Admin: 09/23/17 00:22 Dose: 15 u Insulin Human Regular (Novolin R) 0 unit SC Q6 [facility] PRN Reason: Protocol Last Admin: 09/23/17 07:05 Dose: 2 unit Nystatin (Nystatin Oral Susp) 5 ml PO Q6 [facility] Last Admin: 09/23/17 06:07 Dose: 5 ml Oxycodone/Acetaminophen (Percocet 5/325 Mg Tab) 1 tab PO Q4H PRN PRN Reason: Pain, moderate (4-7) Stop: 09/25/17 08:00 Last Admin: 09/23/17 07:06 Dose: 1 tab Rosuvastatin Calcium (Crestor) 10 mg PO [facility] Last Admin: 09/22/17 21:46 Dose: 10 mg Vitamin B Complex/Vit C/Folic Acid (Nephro-Cony) 1 tab PO DAILY [facility] Last Admin: 09/22/17 10:59 Dose: 1 tab - Labs Labs: 09/20/17 12:11 09/20/17 12:11 PT 14.9 SECONDS (9.7-12.2) H 09/18/17 03:42 INR 1.3 09/18/17 03:42 APTT 35 SECONDS (21-34) H 09/18/17 03:42
--- NOTE | 2017-09-23 07:39 | CP.PCM.PN ---
Subjective - Date & Time of Evaluation Date of Evaluation: 09/13/17 Time of Evaluation: 07:39 - Subjective Subjective: patient is cleared for surgery We will be getting hemodialysis tomorrow Scheduled to have surgery on Saturday Meanwhile continue to monitor closely Objective - Vital Signs/Intake and Output Vital Signs (last 24 hours): Temp Pulse Resp BP Pulse Ox 99.7 F H 93 H 20 172/70 H 94 L 09/22/17 23:05 09/22/17 23:05 09/22/17 23:05 09/22/17 23:05 09/22/17 23:05 - Medications Medications: Current Medications Acetaminophen (Tylenol 325mg Tab) 650 mg PO Q6 PRN PRN Reason: Pain, moderate (4-7) Last Admin: 09/19/17 20:15 Dose: 650 mg Amlodipine Besylate (Norvasc) 5 mg PO DAILY [facility] Last Admin: 09/22/17 15:00 Dose: 5 mg Aspirin (Ecotrin) 81 mg PO DAILY [facility] Last Admin: 09/22/17 10:59 Dose: 81 mg Benzocaine/Menthol (Cepacol Sore Throat) 1 poppy MT Q2H PRN PRN Reason: Sore Throat Last Admin: 09/21/17 10:32 Dose: 1 poppy Betamethasone/Clotrimazole (Lotrisone) 0 gm TOP BID [facility] Last Admin: 09/22/17 18:03 Dose: Not Given Calcium Acetate (Phoslo) 667 mg PO TIDCC [facility] Last Admin: 09/22/17 17:55 Dose: 667 mg Carvedilol (Coreg) 3.125 mg PO BID [facility] Last Admin: 09/22/17 17:55 Dose: 3.125 mg Clindamycin HCl (Cleocin) 300 mg PO BID [facility] PRN Reason: Protocol Stop: 09/26/17 18:01 Last Admin: 09/22/17 17:55 Dose: 300 mg Dextrose (Dextrose 50% Inj) 25 ml IV Q4H PRN PRN Reason: Hypoglycemia Last Admin: 09/18/17 00:23 Dose: 25 ml Epoetin Alec (Procrit) 10,000 unit IV TTS [facility] Stop: 10/01/17 10:01 Last Admin: 09/21/17 11:57 Dose: 10,000 unit Famotidine (Pepcid) 20 mg PO DAILY [facility] Last Admin: 09/22/17 14:59 Dose: 20 mg Gabapentin (Neurontin) 200 mg PO Q12 [facility] Last Admin: 09/22/17 10:59 Dose: Not Given Heparin Sodium (Porcine) (Heparin) 5,000 units SC Q12 [facility] Last Admin: 09/23/17 00:21 Dose: 5,000 units Vancomycin/Sodium Chloride (Vancomycin 1 Gm/Ns 200 Ml) 1 gm in 200 mls @ 133 mls/hr IVPB TTS [facility] PRN Reason: Protocol Stop: 10/01/17 11:31 Last Admin: 09/21/17 12:59 Dose: 133 mls/hr Insulin Glargine (Lantus) 15 unit SC HS [facility] Last Admin: 09/23/17 00:22 Dose: 15 u Insulin Human Regular (Novolin R) 0 unit SC Q6 [facility] PRN Reason: Protocol Last Admin: 09/23/17 07:05 Dose: 2 unit Nystatin (Nystatin Oral Susp) 5 ml PO Q6 [facility] Last Admin: 09/23/17 06:07 Dose: 5 ml Oxycodone/Acetaminophen (Percocet 5/325 Mg Tab) 1 tab PO Q4H PRN PRN Reason: Pain, moderate (4-7) Stop: 09/25/17 08:00 Last Admin: 09/23/17 07:06 Dose: 1 tab Rosuvastatin Calcium (Crestor) 10 mg PO [facility] Last Admin: 09/22/17 21:46 Dose: 10 mg Vitamin B Complex/Vit C/Folic Acid (Nephro-Cony) 1 tab PO DAILY [facility] Last Admin: 09/22/17 10:59 Dose: 1 tab - Labs Labs: 09/20/17 12:11 09/20/17 12:11 PT 14.9 SECONDS (9.7-12.2) H 09/18/17 03:42 INR 1.3 09/18/17 03:42 APTT 35 SECONDS (21-34) H 09/18/17 03:42
--- NOTE | 2017-09-23 07:40 | CP.PCM.PN ---
Subjective - Date & Time of Evaluation Date of Evaluation: 09/14/17 Time of Evaluation: 07:39 - Subjective Subjective: complaining of abdominal pain No chest pain Having hemodialysis Eating well Colostomy drainage noted for colostomy revision on Saturday Objective - Vital Signs/Intake and Output Vital Signs (last 24 hours): Temp Pulse Resp BP Pulse Ox 99.7 F H 93 H 20 172/70 H 94 L 09/22/17 23:05 09/22/17 23:05 09/22/17 23:05 09/22/17 23:05 09/22/17 23:05 - Medications Medications: Current Medications Acetaminophen (Tylenol 325mg Tab) 650 mg PO Q6 PRN PRN Reason: Pain, moderate (4-7) Last Admin: 09/19/17 20:15 Dose: 650 mg Amlodipine Besylate (Norvasc) 5 mg PO DAILY [facility] Last Admin: 09/22/17 15:00 Dose: 5 mg Aspirin (Ecotrin) 81 mg PO DAILY [facility] Last Admin: 09/22/17 10:59 Dose: 81 mg Benzocaine/Menthol (Cepacol Sore Throat) 1 poppy MT Q2H PRN PRN Reason: Sore Throat Last Admin: 09/21/17 10:32 Dose: 1 poppy Betamethasone/Clotrimazole (Lotrisone) 0 gm TOP BID [facility] [place] Last Admin: 09/22/17 18:03 Dose: Not Given Calcium Acetate (Phoslo) 667 mg PO TIDCC [facility] Last Admin: 09/22/17 17:55 Dose: 667 mg Carvedilol (Coreg) 3.125 mg PO BID [facility] [place] Last Admin: 09/22/17 17:55 Dose: 3.125 mg Clindamycin HCl (Cleocin) 300 mg PO BID [facility] PRN Reason: Protocol Stop: 09/26/17 18:01 Last Admin: 09/22/17 17:55 Dose: 300 mg Dextrose (Dextrose 50% Inj) 25 ml IV Q4H PRN PRN Reason: Hypoglycemia Last Admin: 09/18/17 00:23 Dose: 25 ml Epoetin Alec (Procrit) 10,000 unit IV TTS [facility] Stop: 10/01/17 10:01 Last Admin: 09/21/17 11:57 Dose: 10,000 unit Famotidine (Pepcid) 20 mg PO DAILY [facility] [place] Last Admin: 09/22/17 14:59 Dose: 20 mg Gabapentin (Neurontin) 200 mg PO Q12 [facility] Last Admin: 09/22/17 10:59 Dose: Not Given Heparin Sodium (Porcine) (Heparin) 5,000 units SC Q12 [facility] Last Admin: 09/23/17 00:21 Dose: 5,000 units Vancomycin/Sodium Chloride (Vancomycin 1 Gm/Ns 200 Ml) 1 gm in 200 mls @ 133 mls/hr IVPB TTS [facility] PRN Reason: Protocol Stop: 10/01/17 11:31 Last Admin: 09/21/17 12:59 Dose: 133 mls/hr Insulin Glargine (Lantus) 15 unit SC HS [facility] [place] Last Admin: 09/23/17 00:22 Dose: 15 u Insulin Human Regular (Novolin R) 0 unit SC Q6 [facility] PRN Reason: Protocol Last Admin: 09/23/17 07:05 Dose: 2 unit Nystatin (Nystatin Oral Susp) 5 ml PO Q6 [facility] Last Admin: 09/23/17 06:07 Dose: 5 ml Oxycodone/Acetaminophen (Percocet 5/325 Mg Tab) 1 tab PO Q4H PRN PRN Reason: Pain, moderate (4-7) Stop: 09/25/17 08:00 Last Admin: 09/23/17 07:06 Dose: 1 tab Rosuvastatin Calcium (Crestor) 10 mg PO [facility] Last Admin: 09/22/17 21:46 Dose: 10 mg Vitamin B Complex/Vit C/Folic Acid (Nephro-Cony) 1 tab PO DAILY [facility] Last Admin: 09/22/17 10:59 Dose: 1 tab - Labs Labs: 09/20/17 12:11 09/20/17 12:11 PT 14.9 SECONDS (9.7-12.2) H 09/18/17 03:42 INR 1.3 09/18/17 03:42 APTT 35 SECONDS (21-34) H 09/18/17 03:42
--- NOTE | 2017-09-23 07:41 | CP.PCM.PN ---
Subjective - Date & Time of Evaluation Date of Evaluation: 09/15/17 Time of Evaluation: 07:40 - Subjective Subjective: patient is in no distress No chest pain Patient is having right arm pain Especially right index and middle finger discoloration and pain noted Vital signs stable colostomy revision on Saturday Objective - Vital Signs/Intake and Output Vital Signs (last 24 hours): Temp Pulse Resp BP Pulse Ox 99.7 F H 93 H 20 172/70 H 94 L 09/22/17 23:05 09/22/17 23:05 09/22/17 23:05 09/22/17 23:05 09/22/17 23:05 - Medications Medications: Current Medications Acetaminophen (Tylenol 325mg Tab) 650 mg PO Q6 PRN PRN Reason: Pain, moderate (4-7) Last Admin: 09/19/17 20:15 Dose: 650 mg Amlodipine Besylate (Norvasc) 5 mg PO DAILY [facility] Last Admin: 09/22/17 15:00 Dose: 5 mg Aspirin (Ecotrin) 81 mg PO DAILY [facility] Last Admin: 09/22/17 10:59 Dose: 81 mg Benzocaine/Menthol (Cepacol Sore Throat) 1 poppy MT Q2H PRN PRN Reason: Sore Throat Last Admin: 09/21/17 10:32 Dose: 1 poppy Betamethasone/Clotrimazole (Lotrisone) 0 gm TOP BID [facility] Last Admin: 09/22/17 18:03 Dose: Not Given Calcium Acetate (Phoslo) 667 mg PO TIDCC [facility] Last Admin: 09/22/17 17:55 Dose: 667 mg Carvedilol (Coreg) 3.125 mg PO BID [facility] Last Admin: 09/22/17 17:55 Dose: 3.125 mg Clindamycin HCl (Cleocin) 300 mg PO BID [facility] PRN Reason: Protocol Stop: 09/26/17 18:01 Last Admin: 09/22/17 17:55 Dose: 300 mg Dextrose (Dextrose 50% Inj) 25 ml IV Q4H PRN PRN Reason: Hypoglycemia Last Admin: 09/18/17 00:23 Dose: 25 ml Epoetin Alec (Procrit) 10,000 unit IV TTS [facility] Stop: 10/01/17 10:01 Last Admin: 09/21/17 11:57 Dose: 10,000 unit Famotidine (Pepcid) 20 mg PO DAILY [facility] Last Admin: 09/22/17 14:59 Dose: 20 mg Gabapentin (Neurontin) 200 mg PO Q12 [facility] Last Admin: 09/22/17 10:59 Dose: Not Given Heparin Sodium (Porcine) (Heparin) 5,000 units SC Q12 [facility] Last Admin: 09/23/17 00:21 Dose: 5,000 units Vancomycin/Sodium Chloride (Vancomycin 1 Gm/Ns 200 Ml) 1 gm in 200 mls @ 133 mls/hr IVPB TTS [facility] PRN Reason: Protocol Stop: 10/01/17 11:31 Last Admin: 09/21/17 12:59 Dose: 133 mls/hr Insulin Glargine (Lantus) 15 unit SC HS [facility] Last Admin: 09/23/17 00:22 Dose: 15 u Insulin Human Regular (Novolin R) 0 unit SC Q6 [facility] PRN Reason: Protocol Last Admin: 09/23/17 07:05 Dose: 2 unit Nystatin (Nystatin Oral Susp) 5 ml PO Q6 [facility] Last Admin: 09/23/17 06:07 Dose: 5 ml Oxycodone/Acetaminophen (Percocet 5/325 Mg Tab) 1 tab PO Q4H PRN PRN Reason: Pain, moderate (4-7) Stop: 09/25/17 08:00 Last Admin: 09/23/17 07:06 Dose: 1 tab Rosuvastatin Calcium (Crestor) 10 mg PO HS [facility] Last Admin: 09/22/17 21:46 Dose: 10 mg Vitamin B Complex/Vit C/Folic Acid (Nephro-Cony) 1 tab PO DAILY [facility] Last Admin: 09/22/17 10:59 Dose: 1 tab - Labs Labs: 09/20/17 12:11 09/20/17 12:11 PT 14.9 SECONDS (9.7-12.2) H 09/18/17 03:42 INR 1.3 09/18/17 03:42 APTT 35 SECONDS (21-34) H 09/18/17 03:42
--- NOTE | 2017-09-23 07:42 | CP.PCM.PN ---
Subjective - Date & Time of Evaluation Date of Evaluation: 09/16/17 Time of Evaluation: 19:00 - Subjective Subjective: patient underwent colostomy revision today We'll closely monitor Complaining of pain Patient is in intensive care unit will follow-up the patient Objective - Vital Signs/Intake and Output Vital Signs (last 24 hours): Temp Pulse Resp BP Pulse Ox 99.7 F H 93 H 20 172/70 H 94 L 09/22/17 23:05 09/22/17 23:05 09/22/17 23:05 09/22/17 23:05 09/22/17 23:05 - Medications Medications: Current Medications Acetaminophen (Tylenol 325mg Tab) 650 mg PO Q6 PRN PRN Reason: Pain, moderate (4-7) Last Admin: 09/19/17 20:15 Dose: 650 mg Amlodipine Besylate (Norvasc) 5 mg PO DAILY [facility] Last Admin: 09/22/17 15:00 Dose: 5 mg Aspirin (Ecotrin) 81 mg PO DAILY [facility] Last Admin: 09/22/17 10:59 Dose: 81 mg Benzocaine/Menthol (Cepacol Sore Throat) 1 poppy MT Q2H PRN PRN Reason: Sore Throat Last Admin: 09/21/17 10:32 Dose: 1 poppy Betamethasone/Clotrimazole (Lotrisone) 0 gm TOP BID [facility] Last Admin: 09/22/17 18:03 Dose: Not Given Calcium Acetate (Phoslo) 667 mg PO TIDCC [facility] Last Admin: 09/22/17 17:55 Dose: 667 mg Carvedilol (Coreg) 3.125 mg PO BID [facility] Last Admin: 09/22/17 17:55 Dose: 3.125 mg Clindamycin HCl (Cleocin) 300 mg PO BID [facility] PRN Reason: Protocol Stop: 09/26/17 18:01 Last Admin: 09/22/17 17:55 Dose: 300 mg Dextrose (Dextrose 50% Inj) 25 ml IV Q4H PRN PRN Reason: Hypoglycemia Last Admin: 09/18/17 00:23 Dose: 25 ml Epoetin Alec (Procrit) 10,000 unit IV TTS [facility] Stop: 10/01/17 10:01 Last Admin: 09/21/17 11:57 Dose: 10,000 unit Famotidine (Pepcid) 20 mg PO DAILY [facility] Last Admin: 09/22/17 14:59 Dose: 20 mg Gabapentin (Neurontin) 200 mg PO Q12 [facility] Last Admin: 09/22/17 10:59 Dose: Not Given Heparin Sodium (Porcine) (Heparin) 5,000 units SC Q12 [facility] Last Admin: 09/23/17 00:21 Dose: 5,000 units Vancomycin/Sodium Chloride (Vancomycin 1 Gm/Ns 200 Ml) 1 gm in 200 mls @ 133 mls/hr IVPB TTS [facility] PRN Reason: Protocol Stop: 10/01/17 11:31 Last Admin: 09/21/17 12:59 Dose: 133 mls/hr Insulin Glargine (Lantus) 15 unit SC HS [facility] Last Admin: 09/23/17 00:22 Dose: 15 u Insulin Human Regular (Novolin R) 0 unit SC Q6 [facility] PRN Reason: Protocol Last Admin: 09/23/17 07:05 Dose: 2 unit Nystatin (Nystatin Oral Susp) 5 ml PO Q6 [facility] Last Admin: 09/23/17 06:07 Dose: 5 ml Oxycodone/Acetaminophen (Percocet 5/325 Mg Tab) 1 tab PO Q4H PRN PRN Reason: Pain, moderate (4-7) Stop: 09/25/17 08:00 Last Admin: 09/23/17 07:06 Dose: 1 tab Rosuvastatin Calcium (Crestor) 10 mg PO [facility] Last Admin: 09/22/17 21:46 Dose: 10 mg Vitamin B Complex/Vit C/Folic Acid (Nephro-Cony) 1 tab PO DAILY [facility] Last Admin: 09/22/17 10:59 Dose: 1 tab - Labs Labs: 09/20/17 12:11 09/20/17 12:11 PT 14.9 SECONDS (9.7-12.2) H 09/18/17 03:42 INR 1.3 09/18/17 03:42 APTT 35 SECONDS (21-34) H 09/18/17 03:42
--- NOTE | 2017-09-23 07:43 | CP.PCM.PN ---
Subjective - Date & Time of Evaluation Date of Evaluation: 09/17/17 Time of Evaluation: 07:42 - Subjective Subjective: patient getting hemodialysis Complaining of pain Not eating well Low blood sugar noted Postoperative minimal drainage noted being seen by surgery Objective - Vital Signs/Intake and Output Vital Signs (last 24 hours): Temp Pulse Resp BP Pulse Ox 99.7 F H 93 H 20 172/70 H 94 L 09/22/17 23:05 09/22/17 23:05 09/22/17 23:05 09/22/17 23:05 09/22/17 23:05 - Medications Medications: Current Medications Acetaminophen (Tylenol 325mg Tab) 650 mg PO Q6 PRN PRN Reason: Pain, moderate (4-7) Last Admin: 09/19/17 20:15 Dose: 650 mg Amlodipine Besylate (Norvasc) 5 mg PO DAILY [facility] Last Admin: 09/22/17 15:00 Dose: 5 mg Aspirin (Ecotrin) 81 mg PO DAILY [facility] Last Admin: 09/22/17 10:59 Dose: 81 mg Benzocaine/Menthol (Cepacol Sore Throat) 1 poppy MT Q2H PRN PRN Reason: Sore Throat Last Admin: 09/21/17 10:32 Dose: 1 poppy Betamethasone/Clotrimazole (Lotrisone) 0 gm TOP BID [facility] Last Admin: 09/22/17 18:03 Dose: Not Given Calcium Acetate (Phoslo) 667 mg PO TIDCC [facility] Last Admin: 09/22/17 17:55 Dose: 667 mg Carvedilol (Coreg) 3.125 mg PO BID [facility] Last Admin: 09/22/17 17:55 Dose: 3.125 mg Clindamycin HCl (Cleocin) 300 mg PO BID [facility] PRN Reason: Protocol Stop: 09/26/17 18:01 Last Admin: 09/22/17 17:55 Dose: 300 mg Dextrose (Dextrose 50% Inj) 25 ml IV Q4H PRN PRN Reason: Hypoglycemia Last Admin: 09/18/17 00:23 Dose: 25 ml Epoetin Alec (Procrit) 10,000 unit IV TTS [facility] Stop: 10/01/17 10:01 Last Admin: 09/21/17 11:57 Dose: 10,000 unit Famotidine (Pepcid) 20 mg PO DAILY [facility] Last Admin: 09/22/17 14:59 Dose: 20 mg Gabapentin (Neurontin) 200 mg PO Q12 [facility] Last Admin: 09/22/17 10:59 Dose: Not Given Heparin Sodium (Porcine) (Heparin) 5,000 units SC Q12 [facility] Last Admin: 09/23/17 00:21 Dose: 5,000 units Vancomycin/Sodium Chloride (Vancomycin 1 Gm/Ns 200 Ml) 1 gm in 200 mls @ 133 mls/hr IVPB TTS [facility] PRN Reason: Protocol Stop: 10/01/17 11:31 Last Admin: 09/21/17 12:59 Dose: 133 mls/hr Insulin Glargine (Lantus) 15 unit SC HS [facility] Last Admin: 09/23/17 00:22 Dose: 15 u Insulin Human Regular (Novolin R) 0 unit SC Q6 [facility] PRN Reason: Protocol Last Admin: 09/23/17 07:05 Dose: 2 unit Nystatin (Nystatin Oral Susp) 5 ml PO Q6 [facility] Last Admin: 09/23/17 06:07 Dose: 5 ml Oxycodone/Acetaminophen (Percocet 5/325 Mg Tab) 1 tab PO Q4H PRN PRN Reason: Pain, moderate (4-7) Stop: 09/25/17 08:00 Last Admin: 09/23/17 07:06 Dose: 1 tab Rosuvastatin Calcium (Crestor) 10 mg PO HS [facility] Last Admin: 09/22/17 21:46 Dose: 10 mg Vitamin B Complex/Vit C/Folic Acid (Nephro-Cony) 1 tab PO DAILY [facility] Last Admin: 09/22/17 10:59 Dose: 1 tab - Labs Labs: 09/20/17 12:11 09/20/17 12:11 PT 14.9 SECONDS (9.7-12.2) H 09/18/17 03:42 INR 1.3 09/18/17 03:42 APTT 35 SECONDS (21-34) H 09/18/17 03:42
--- NOTE | 2017-09-23 07:44 | CP.PCM.PN ---
Subjective - Date & Time of Evaluation Date of Evaluation: 09/18/17 Time of Evaluation: 07:44 - Subjective Subjective: Patient has is some drainage in the abdomen alone The patient pulled the NG tube out Low-grade fever noted Comparing of pain Vital signs are stable otherwise except low-grade fever Denies any chest pain or shortness of breath Postoperative day 2 Will continue to monitor. Objective - Vital Signs/Intake and Output Vital Signs (last 24 hours): Temp Pulse Resp BP Pulse Ox 99.7 F H 93 H 20 172/70 H 94 L 09/22/17 23:05 09/22/17 23:05 09/22/17 23:05 09/22/17 23:05 09/22/17 23:05 - Medications Medications: Current Medications Acetaminophen (Tylenol 325mg Tab) 650 mg PO Q6 PRN PRN Reason: Pain, moderate (4-7) Last Admin: 09/19/17 20:15 Dose: 650 mg Amlodipine Besylate (Norvasc) 5 mg PO DAILY [facility] Last Admin: 09/22/17 15:00 Dose: 5 mg Aspirin (Ecotrin) 81 mg PO DAILY [facility] Last Admin: 09/22/17 10:59 Dose: 81 mg Benzocaine/Menthol (Cepacol Sore Throat) 1 poppy MT Q2H PRN PRN Reason: Sore Throat Last Admin: 09/21/17 10:32 Dose: 1 poppy Betamethasone/Clotrimazole (Lotrisone) 0 gm TOP BID [facility] Last Admin: 09/22/17 18:03 Dose: Not Given Calcium Acetate (Phoslo) 667 mg PO TIDCC [facility] Last Admin: 09/22/17 17:55 Dose: 667 mg Carvedilol (Coreg) 3.125 mg PO BID [facility] Last Admin: 09/22/17 17:55 Dose: 3.125 mg Clindamycin HCl (Cleocin) 300 mg PO BID [facility] PRN Reason: Protocol Stop: 09/26/17 18:01 Last Admin: 09/22/17 17:55 Dose: 300 mg Dextrose (Dextrose 50% Inj) 25 ml IV Q4H PRN PRN Reason: Hypoglycemia Last Admin: 09/18/17 00:23 Dose: 25 ml Epoetin Alec (Procrit) 10,000 unit IV TTS [facility] Stop: 10/01/17 10:01 Last Admin: 09/21/17 11:57 Dose: 10,000 unit Famotidine (Pepcid) 20 mg PO DAILY [facility] Last Admin: 09/22/17 14:59 Dose: 20 mg Gabapentin (Neurontin) 200 mg PO Q12 [facility] Last Admin: 09/22/17 10:59 Dose: Not Given Heparin Sodium (Porcine) (Heparin) 5,000 units SC Q12 [facility] Last Admin: 09/23/17 00:21 Dose: 5,000 units Vancomycin/Sodium Chloride (Vancomycin 1 Gm/Ns 200 Ml) 1 gm in 200 mls @ 133 mls/hr IVPB TTS [facility] PRN Reason: Protocol Stop: 10/01/17 11:31 Last Admin: 09/21/17 12:59 Dose: 133 mls/hr Insulin Glargine (Lantus) 15 unit SC HS [facility] Last Admin: 09/23/17 00:22 Dose: 15 u Insulin Human Regular (Novolin R) 0 unit SC Q6 [facility] PRN Reason: Protocol Last Admin: 09/23/17 07:05 Dose: 2 unit Nystatin (Nystatin Oral Susp) 5 ml PO Q6 [facility] Last Admin: 09/23/17 06:07 Dose: 5 ml Oxycodone/Acetaminophen (Percocet 5/325 Mg Tab) 1 tab PO Q4H PRN PRN Reason: Pain, moderate (4-7) Stop: 09/25/17 08:00 Last Admin: 09/23/17 07:06 Dose: 1 tab Rosuvastatin Calcium (Crestor) 10 mg PO [facility] Last Admin: 09/22/17 21:46 Dose: 10 mg Vitamin B Complex/Vit C/Folic Acid (Nephro-Cony) 1 tab PO DAILY [facility] Last Admin: 09/22/17 10:59 Dose: 1 tab - Labs Labs: 09/20/17 12:11 09/20/17 12:11 PT 14.9 SECONDS (9.7-12.2) H 09/18/17 03:42 INR 1.3 09/18/17 03:42 APTT 35 SECONDS (21-34) H 09/18/17 03:42
--- NOTE | 2017-09-23 07:46 | CP.PCM.PN ---
Subjective - Date & Time of Evaluation Date of Evaluation: 09/21/17 Time of Evaluation: 07:46 - Subjective Subjective: Patient had hemodialysis today. Combining of pain. No chest pain or shortness of breath. Had a minimal BM, and passing gas. The diet is advanced to We will continue the current treatment. Objective - Vital Signs/Intake and Output Vital Signs (last 24 hours): Temp Pulse Resp BP Pulse Ox 99.7 F H 93 H 20 172/70 H 94 L 09/22/17 23:05 09/22/17 23:05 09/22/17 23:05 09/22/17 23:05 09/22/17 23:05 - Medications Medications: Current Medications Acetaminophen (Tylenol 325mg Tab) 650 mg PO Q6 PRN PRN Reason: Pain, moderate (4-7) Last Admin: 09/19/17 20:15 Dose: 650 mg Amlodipine Besylate (Norvasc) 5 mg PO DAILY [facility] Last Admin: 09/22/17 15:00 Dose: 5 mg Aspirin (Ecotrin) 81 mg PO DAILY [facility] Last Admin: 09/22/17 10:59 Dose: 81 mg Benzocaine/Menthol (Cepacol Sore Throat) 1 poppy MT Q2H PRN PRN Reason: Sore Throat Last Admin: 09/21/17 10:32 Dose: 1 poppy Betamethasone/Clotrimazole (Lotrisone) 0 gm TOP BID [facility] Last Admin: 09/22/17 18:03 Dose: Not Given Calcium Acetate (Phoslo) 667 mg PO TIDCC [facility] Last Admin: 09/22/17 17:55 Dose: 667 mg Carvedilol (Coreg) 3.125 mg PO BID [facility] Last Admin: 09/22/17 17:55 Dose: 3.125 mg Clindamycin HCl (Cleocin) 300 mg PO BID [facility] PRN Reason: Protocol Stop: 09/26/17 18:01 Last Admin: 09/22/17 17:55 Dose: 300 mg Dextrose (Dextrose 50% Inj) 25 ml IV Q4H PRN PRN Reason: Hypoglycemia Last Admin: 09/18/17 00:23 Dose: 25 ml Epoetin Alec (Procrit) 10,000 unit IV TTS [facility] Stop: 10/01/17 10:01 Last Admin: 09/21/17 11:57 Dose: 10,000 unit Famotidine (Pepcid) 20 mg PO DAILY [facility] Last Admin: 09/22/17 14:59 Dose: 20 mg Gabapentin (Neurontin) 200 mg PO Q12 [facility] Last Admin: 09/22/17 10:59 Dose: Not Given Heparin Sodium (Porcine) (Heparin) 5,000 units SC Q12 [facility] Last Admin: 09/23/17 00:21 Dose: 5,000 units Vancomycin/Sodium Chloride (Vancomycin 1 Gm/Ns 200 Ml) 1 gm in 200 mls @ 133 mls/hr IVPB TTS [facility] PRN Reason: Protocol Stop: 10/01/17 11:31 Last Admin: 09/21/17 12:59 Dose: 133 mls/hr Insulin Glargine (Lantus) 15 unit SC HS [facility] Last Admin: 09/23/17 00:22 Dose: 15 u Insulin Human Regular (Novolin R) 0 unit SC Q6 [facility] PRN Reason: Protocol Last Admin: 09/23/17 07:05 Dose: 2 unit Nystatin (Nystatin Oral Susp) 5 ml PO Q6 [facility] Last Admin: 09/23/17 06:07 Dose: 5 ml Oxycodone/Acetaminophen (Percocet 5/325 Mg Tab) 1 tab PO Q4H PRN PRN Reason: Pain, moderate (4-7) Stop: 09/25/17 08:00 Last Admin: 09/23/17 07:06 Dose: 1 tab Rosuvastatin Calcium (Crestor) 10 mg PO HS [facility] Last Admin: 09/22/17 21:46 Dose: 10 mg Vitamin B Complex/Vit C/Folic Acid (Nephro-Cony) 1 tab PO DAILY [facility] Last Admin: 09/22/17 10:59 Dose: 1 tab - Labs Labs: 09/20/17 12:11 09/20/17 12:11 PT 14.9 SECONDS (9.7-12.2) H 09/18/17 03:42 INR 1.3 09/18/17 03:42 APTT 35 SECONDS (21-34) H 09/18/17 03:42
--- NOTE | 2017-09-23 07:46 | CP.PCM.PN ---
Subjective - Date & Time of Evaluation Date of Evaluation: 09/20/17 Time of Evaluation: 07:45 - Subjective Subjective: Patient is to continue his to pain. Last night she received OxyContin. Still having no BMP Still on clear liquids Combining a pain in the right index finger and middle finger. Minimal discoloration of the fingertip noted. 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 Continue to monitor. Objective - Vital Signs/Intake and Output Vital Signs (last 24 hours): Temp Pulse Resp BP Pulse Ox 99.7 F H 93 H 20 172/70 H 94 L 09/22/17 23:05 09/22/17 23:05 09/22/17 23:05 09/22/17 23:05 09/22/17 23:05 - Medications Medications: Current Medications Acetaminophen (Tylenol 325mg Tab) 650 mg PO Q6 PRN PRN Reason: Pain, moderate (4-7) Last Admin: 09/19/17 20:15 Dose: 650 mg Amlodipine Besylate (Norvasc) 5 mg PO DAILY [facility] Last Admin: 09/22/17 15:00 Dose: 5 mg Aspirin (Ecotrin) 81 mg PO DAILY [facility] Last Admin: 09/22/17 10:59 Dose: 81 mg Benzocaine/Menthol (Cepacol Sore Throat) 1 poppy MT Q2H PRN PRN Reason: Sore Throat Last Admin: 09/21/17 10:32 Dose: 1 poppy Betamethasone/Clotrimazole (Lotrisone) 0 gm TOP BID [facility] Last Admin: 09/22/17 18:03 Dose: Not Given Calcium Acetate (Phoslo) 667 mg PO TIDCC [facility] Last Admin: 09/22/17 17:55 Dose: 667 mg Carvedilol (Coreg) 3.125 mg PO BID [facility] Last Admin: 09/22/17 17:55 Dose: 3.125 mg Clindamycin HCl (Cleocin) 300 mg PO BID [facility] PRN Reason: Protocol Stop: 09/26/17 18:01 Last Admin: 09/22/17 17:55 Dose: 300 mg Dextrose (Dextrose 50% Inj) 25 ml IV Q4H PRN PRN Reason: Hypoglycemia Last Admin: 09/18/17 00:23 Dose: 25 ml Epoetin Alec (Procrit) 10,000 unit IV TTS [facility] Stop: 10/01/17 10:01 Last Admin: 09/21/17 11:57 Dose: 10,000 unit Famotidine (Pepcid) 20 mg PO DAILY [facility] Last Admin: 09/22/17 14:59 Dose: 20 mg Gabapentin (Neurontin) 200 mg PO Q12 [facility] Last Admin: 09/22/17 10:59 Dose: Not Given Heparin Sodium (Porcine) (Heparin) 5,000 units SC Q12 [facility] Last Admin: 09/23/17 00:21 Dose: 5,000 units Vancomycin/Sodium Chloride (Vancomycin 1 Gm/Ns 200 Ml) 1 gm in 200 mls @ 133 mls/hr IVPB TTS [facility] PRN Reason: Protocol Stop: 10/01/17 11:31 Last Admin: 09/21/17 12:59 Dose: 133 mls/hr Insulin Glargine (Lantus) 15 unit SC [facility] Last Admin: 09/23/17 00:22 Dose: 15 u Insulin Human Regular (Novolin R) 0 unit SC Q6 [facility] PRN Reason: Protocol Last Admin: 09/23/17 07:05 Dose: 2 unit Nystatin (Nystatin Oral Susp) 5 ml PO Q6 [facility] Last Admin: 09/23/17 06:07 Dose: 5 ml Oxycodone/Acetaminophen (Percocet 5/325 Mg Tab) 1 tab PO Q4H PRN PRN Reason: Pain, moderate (4-7) Stop: 09/25/17 08:00 Last Admin: 09/23/17 07:06 Dose: 1 tab Rosuvastatin Calcium (Crestor) 10 mg PO [facility] Last Admin: 09/22/17 21:46 Dose: 10 mg Vitamin B Complex/Vit C/Folic Acid (Nephro-Cony) 1 tab PO DAILY [facility] Last Admin: 09/22/17 10:59 Dose: 1 tab - Labs Labs: 09/20/17 12:11 09/20/17 12:11 PT 14.9 SECONDS (9.7-12.2) H 09/18/17 03:42 INR 1.3 09/18/17 03:42 APTT 35 SECONDS (21-34) H 09/18/17 03:42
--- NOTE | 2017-09-23 07:49 | CP.PCM.PN ---
Subjective - Date & Time of Evaluation Date of Evaluation: 09/22/17 Time of Evaluation: 07:47 - Subjective Subjective: Patient is still continuous to pain The wound dressing is clear, minimal discharge in the lower part noted Passing gas. Patient wanted to go home. Not cleared by surgery yet Minimal abdominal pain noted. Will continue to monitor. Pain control. On antibiotic Patient is having interrupted right index finger tip, associated with atherosclerotic arterial disease. High risk for gangrene. Patient is very upset about further surgical intervention. Objective - Vital Signs/Intake and Output Vital Signs (last 24 hours): Temp Pulse Resp BP Pulse Ox 99.7 F H 93 H 20 172/70 H 94 L 09/22/17 23:05 09/22/17 23:05 09/22/17 23:05 09/22/17 23:05 09/22/17 23:05 - Medications Medications: Current Medications Acetaminophen (Tylenol 325mg Tab) 650 mg PO Q6 PRN PRN Reason: Pain, moderate (4-7) Last Admin: 09/19/17 20:15 Dose: 650 mg Amlodipine Besylate (Norvasc) 5 mg PO DAILY [facility] Last Admin: 09/22/17 15:00 Dose: 5 mg Aspirin (Ecotrin) 81 mg PO DAILY [facility] Last Admin: 09/22/17 10:59 Dose: 81 mg Benzocaine/Menthol (Cepacol Sore Throat) 1 poppy MT Q2H PRN PRN Reason: Sore Throat Last Admin: 09/21/17 10:32 Dose: 1 poppy Betamethasone/Clotrimazole (Lotrisone) 0 gm TOP BID [facility] Last Admin: 09/22/17 18:03 Dose: Not Given Calcium Acetate (Phoslo) 667 mg PO TIDCC [facility] Last Admin: 09/22/17 17:55 Dose: 667 mg Carvedilol (Coreg) 3.125 mg PO BID [facility] Last Admin: 09/22/17 17:55 Dose: 3.125 mg Clindamycin HCl (Cleocin) 300 mg PO BID [facility] PRN Reason: Protocol Stop: 09/26/17 18:01 Last Admin: 09/22/17 17:55 Dose: 300 mg Dextrose (Dextrose 50% Inj) 25 ml IV Q4H PRN PRN Reason: Hypoglycemia Last Admin: 09/18/17 00:23 Dose: 25 ml Epoetin Alec (Procrit) 10,000 unit IV TTS [facility] Stop: 10/01/17 10:01 Last Admin: 09/21/17 11:57 Dose: 10,000 unit Famotidine (Pepcid) 20 mg PO DAILY [facility] Last Admin: 09/22/17 14:59 Dose: 20 mg Gabapentin (Neurontin) 200 mg PO Q12 [facility] Last Admin: 09/22/17 10:59 Dose: Not Given Heparin Sodium (Porcine) (Heparin) 5,000 units SC Q12 [facility] Last Admin: 09/23/17 00:21 Dose: 5,000 units Vancomycin/Sodium Chloride (Vancomycin 1 Gm/Ns 200 Ml) 1 gm in 200 mls @ 133 mls/hr IVPB TTS [facility] PRN Reason: Protocol Stop: 10/01/17 11:31 Last Admin: 09/21/17 12:59 Dose: 133 mls/hr Insulin Glargine (Lantus) 15 unit SC [facility] Last Admin: 09/23/17 00:22 Dose: 15 u Insulin Human Regular (Novolin R) 0 unit SC Q6 [facility] PRN Reason: Protocol Last Admin: 09/23/17 07:05 Dose: 2 unit Nystatin (Nystatin Oral Susp) 5 ml PO Q6 [facility] Last Admin: 09/23/17 06:07 Dose: 5 ml Oxycodone/Acetaminophen (Percocet 5/325 Mg Tab) 1 tab PO Q4H PRN PRN Reason: Pain, moderate (4-7) Stop: 09/25/17 08:00 Last Admin: 09/23/17 07:06 Dose: 1 tab Rosuvastatin Calcium (Crestor) 10 mg PO [facility] Last Admin: 09/22/17 21:46 Dose: 10 mg Vitamin B Complex/Vit C/Folic Acid (Nephro-Cony) 1 tab PO DAILY [facility] Last Admin: 09/22/17 10:59 Dose: 1 tab - Labs Labs: 09/20/17 12:11 09/20/17 12:11 PT 14.9 SECONDS (9.7-12.2) H 09/18/17 03:42 INR 1.3 09/18/17 03:42 APTT 35 SECONDS (21-34) H 09/18/17 03:42
--- NOTE | 2017-09-23 10:44 | CP.PCM.PN ---
Subjective - Date & Time of Evaluation Date of Evaluation: 09/23/17 Time of Evaluation: 10:41 - Subjective Subjective: seen and examined chart reviewed vitals stable tolerating soft diet no n/v/d/sob/dizziness/fevers/chills/weakness/numbness/rash Objective - Vital Signs/Intake and Output Vital Signs (last 24 hours): Temp Pulse Resp BP Pulse Ox 99.4 F 94 H 20 188/80 H 96 09/23/17 07:05 09/23/17 07:05 09/23/17 07:05 09/23/17 07:05 09/23/17 07:05 - Medications Medications: Current Medications Acetaminophen (Tylenol 325mg Tab) 650 mg PO Q6 PRN PRN Reason: Pain, moderate (4-7) Last Admin: 09/19/17 20:15 Dose: 650 mg Amlodipine Besylate (Norvasc) 5 mg PO DAILY [facility] Last Admin: 09/22/17 15:00 Dose: 5 mg Aspirin (Ecotrin) 81 mg PO DAILY [facility] Last Admin: 09/22/17 10:59 Dose: 81 mg Benzocaine/Menthol (Cepacol Sore Throat) 1 poppy MT Q2H PRN PRN Reason: Sore Throat Last Admin: 09/21/17 10:32 Dose: 1 poppy Betamethasone/Clotrimazole (Lotrisone) 0 gm TOP BID [facility] Last Admin: 09/22/17 18:03 Dose: Not Given Calcium Acetate (Phoslo) 667 mg PO TIDCC [facility] Last Admin: 09/23/17 08:48 Dose: 667 mg Carvedilol (Coreg) 3.125 mg PO BID [facility] Last Admin: 09/22/17 17:55 Dose: 3.125 mg Clindamycin HCl (Cleocin) 300 mg PO BID [facility] PRN Reason: Protocol Stop: 09/26/17 18:01 Last Admin: 09/22/17 17:55 Dose: 300 mg Dextrose (Dextrose 50% Inj) 25 ml IV Q4H PRN PRN Reason: Hypoglycemia Last Admin: 09/18/17 00:23 Dose: 25 ml Epoetin Alec (Procrit) 10,000 unit IV TTS [facility] Stop: 10/01/17 10:01 Last Admin: 09/21/17 11:57 Dose: 10,000 unit Famotidine (Pepcid) 20 mg PO DAILY [facility] Last Admin: 09/22/17 14:59 Dose: 20 mg Gabapentin (Neurontin) 200 mg PO Q12 [facility] Last Admin: 09/22/17 10:59 Dose: Not Given Heparin Sodium (Porcine) (Heparin) 5,000 units SC Q12 [facility] Last Admin: 09/23/17 00:21 Dose: 5,000 units Vancomycin/Sodium Chloride (Vancomycin 1 Gm/Ns 200 Ml) 1 gm in 200 mls @ 133 mls/hr IVPB TTS [facility] PRN Reason: Protocol Stop: 10/01/17 11:31 Last Admin: 09/21/17 12:59 Dose: 133 mls/hr Insulin Glargine (Lantus) 15 unit SC [facility] Last Admin: 09/23/17 00:22 Dose: 15 u Insulin Human Regular (Novolin R) 0 unit SC Q6 [facility] PRN Reason: Protocol Last Admin: 09/23/17 08:43 Dose: Not Given Nystatin (Nystatin Oral Susp) 5 ml PO Q6 [facility] Last Admin: 09/23/17 06:07 Dose: 5 ml Oxycodone/Acetaminophen (Percocet 5/325 Mg Tab) 1 tab PO Q4H PRN PRN Reason: Pain, moderate (4-7) Stop: 09/25/17 08:00 Last Admin: 09/23/17 07:06 Dose: 1 tab Rosuvastatin Calcium (Crestor) 10 mg PO [facility] Last Admin: 09/22/17 21:46 Dose: 10 mg Vitamin B Complex/Vit C/Folic Acid (Nephro-Cony) 1 tab PO DAILY [facility] Last Admin: 09/22/17 10:59 Dose: 1 tab - Labs Labs: 09/20/17 12:11 09/20/17 12:11 PT 14.9 SECONDS (9.7-12.2) H 09/18/17 03:42 INR 1.3 09/18/17 03:42 APTT 35 SECONDS (21-34) H 09/18/17 03:42 - Constitutional Appears: No Acute Distress, Older Than Stated Age, Chronically Ill - Head Exam Head Exam: NORMAL INSPECTION, NORMOCEPHALIC - Eye Exam Eye Exam: Normal appearance, PERRL - ENT Exam ENT Exam: Mucous Membranes Moist, Normal Exam - Neck Exam Neck Exam: Full ROM, Normal Inspection - Respiratory Exam Respiratory Exam: Clear to Ausculation Bilateral, NORMAL BREATHING PATTERN - Cardiovascular Exam Cardiovascular Exam: REGULAR RHYTHM, RRR - GI/Abdominal Exam GI & Abdominal Exam: Distended (dressing in place), Soft - Extremities Exam Additional comments: b/l amputee - Neurological Exam Neurological Exam: Alert, Awake, Oriented x3 - Psychiatric Exam Psychiatric exam: Normal Affect, Normal Mood - Skin Skin Exam: Dry, Intact Assessment and Plan (1) End stage renal disease Status: Acute (2) Hypotension Status: Acute (3) PVD (peripheral vascular disease) Status: Acute (4) S/P BKA (below knee amputation) bilateral Status: Acute (5) Colostomy complication, unspecified Status: Acute - Assessment and Plan (Free Text) Assessment: maintain hd tts wound care, antibiotics PT/OT bp acceptable po protein supplement
[2017-09-23] MEDS: Multivitamin Vitamin B Complex (Nephro-Vite) Tab PO SCH (10:59)
[2017-09-23] MEDS: Clotrimazole/Betamethasone Cream(15 gm) TOP SCH ×2 (11:00→17:59)
--- NOTE | 2017-09-23 14:34 | CP.PCM.PN ---
Subjective - Date & Time of Evaluation Date of Evaluation: 09/23/17 Time of Evaluation: 07:00 - Subjective Subjective: Patient seen and examined this AM. No adverse event overnight. Patient tolerating diet and having soft bowel movement Objective - Vital Signs/Intake and Output Vital Signs (last 24 hours): Temp Pulse Resp BP Pulse Ox 99.4 F 89 20 177/78 H 96 09/23/17 07:05 09/23/17 10:58 09/23/17 07:05 09/23/17 10:58 09/23/17 07:05 - Medications Medications: Current Medications Acetaminophen (Tylenol 325mg Tab) 650 mg PO Q6 PRN PRN Reason: Pain, moderate (4-7) Last Admin: 09/19/17 20:15 Dose: 650 mg Amlodipine Besylate (Norvasc) 5 mg PO DAILY [facility] Last Admin: 09/23/17 10:59 Dose: 5 mg Aspirin (Ecotrin) 81 mg PO DAILY [facility] Last Admin: 09/23/17 10:59 Dose: 81 mg Benzocaine/Menthol (Cepacol Sore Throat) 1 poppy MT Q2H PRN PRN Reason: Sore Throat Last Admin: 09/21/17 10:32 Dose: 1 poppy Betamethasone/Clotrimazole (Lotrisone) 0 gm TOP BID [facility] Last Admin: 09/23/17 11:00 Dose: 1 applic Calcium Acetate (Phoslo) 667 mg PO TIDCC [facility] Last Admin: 09/23/17 13:00 Dose: 667 mg Carvedilol (Coreg) 3.125 mg PO BID [facility] Last Admin: 09/23/17 10:59 Dose: 3.125 mg Clindamycin HCl (Cleocin) 300 mg PO BID [facility] PRN Reason: Protocol Stop: 09/26/17 18:01 Last Admin: 09/23/17 10:59 Dose: 300 mg Dextrose (Dextrose 50% Inj) 25 ml IV Q4H PRN PRN Reason: Hypoglycemia Last Admin: 09/18/17 00:23 Dose: 25 ml Epoetin Alec (Procrit) 10,000 unit IV TTS [facility] Stop: 10/01/17 10:01 Last Admin: 09/21/17 11:57 Dose: 10,000 unit Famotidine (Pepcid) 20 mg PO DAILY [facility] Last Admin: 09/23/17 10:59 Dose: 20 mg Gabapentin (Neurontin) 200 mg PO Q12 [facility] Last Admin: 09/23/17 11:00 Dose: Not Given Heparin Sodium (Porcine) (Heparin) 5,000 units SC Q12 [facility] Last Admin: 09/23/17 11:00 Dose: Not Given Vancomycin/Sodium Chloride (Vancomycin 1 Gm/Ns 200 Ml) 1 gm in 200 mls @ 133 mls/hr IVPB TTS [facility] PRN Reason: Protocol Stop: 10/01/17 11:31 Last Admin: 09/21/17 12:59 Dose: 133 mls/hr Insulin Glargine (Lantus) 15 unit SC [facility] Last Admin: 09/23/17 00:22 Dose: 15 u Insulin Human Regular (Novolin R) 0 unit SC Q6 [facility] PRN Reason: Protocol Last Admin: 09/23/17 13:00 Dose: Not Given Nystatin (Nystatin Oral Susp) 5 ml PO Q6 [facility] Last Admin: 09/23/17 13:00 Dose: 5 ml Oxycodone/Acetaminophen (Percocet 5/325 Mg Tab) 1 tab PO Q4H PRN PRN Reason: Pain, moderate (4-7) Stop: 09/25/17 08:00 Last Admin: 09/23/17 11:32 Dose: 1 tab Rosuvastatin Calcium (Crestor) 10 mg PO [facility] Last Admin: 09/22/17 21:46 Dose: 10 mg Vitamin B Complex/Vit C/Folic Acid (Nephro-Cony) 1 tab PO DAILY [facility] Last Admin: 09/23/17 10:59 Dose: 1 tab - Labs Labs: 09/20/17 12:11 09/20/17 12:11 PT 14.9 SECONDS (9.7-12.2) H 09/18/17 03:42 INR 1.3 09/18/17 03:42 APTT 35 SECONDS (21-34) H 09/18/17 03:42 - Constitutional Appears: Well, Non-toxic, No Acute Distress - Head Exam Head Exam: ATRAUMATIC, NORMOCEPHALIC - Eye Exam Eye Exam: Normal appearance. absent: Conjunctival injection, Scleral icterus - ENT Exam ENT Exam: Mucous Membranes Moist, Normal Oropharynx - Respiratory Exam Respiratory Exam: NORMAL BREATHING PATTERN. absent: Accessory Muscle Use, Respiratory Distress - Cardiovascular Exam Cardiovascular Exam: RRR - GI/Abdominal Exam GI & Abdominal Exam: Soft, Tenderness (pre-incisional). absent: Distended Additional comments: Incision well approximated with reyes with small amount of ser-sanguinous drainage from the upper and lower incision. No surrounding erythema - Extremities Exam Extremities Exam: absent: Calf Tenderness, Pedal Edema, Tenderness - Neurological Exam Neurological Exam: Alert, Awake, Oriented x3 - Psychiatric Exam Psychiatric exam: Anxious, Normal Affect - Skin Skin Exam: Dry, Normal Color, Warm Assessment and Plan - Assessment and Plan (Free Text) Assessment: 51F POD#7 s/p reversal of ileostomy Plan: -No further surgical intervention necessary -Patient cleared for discharge from a surgical standpoint--is eating well with bowel movements, pain well controlled -Continue renal diet -Follow up with Dr. Clark in his office in 1-2 weeks after discharge -Dressings as needed for drainage of her incision -Patient may shower, but not soak the incision Discussed with Dr. Eduardo Dubon, PGY2
--- NOTE | 2017-09-23 16:51 | CP.PCM.PN ---
Subjective - Date & Time of Evaluation Date of Evaluation: 09/23/17 Time of Evaluation: 14:00 - Subjective Subjective: Patient states she still has a lot of pain in her finger. She says she has not been doing any soaks. Again advised patient that the finger needs to be soaks TID-QID, cleaned and dressed after each soak. Offered to get water for patient and she refused, saying she will only use her bottled water and betadine. Advised patient warm water is preferred.Denies new complaints. Review of Systems - Review of Systems All systems: reviewed and no additional remarkable complaints except - Musculoskeletal Musculoskeletal: As Par HPI Objective - Vital Signs/Intake and Output Vital Signs (last 24 hours): Temp Pulse Resp BP Pulse Ox 99.4 F 89 20 177/78 H 96 09/23/17 07:05 09/23/17 10:58 09/23/17 07:05 09/23/17 10:58 09/23/17 07:05 - Medications Medications: Current Medications Acetaminophen (Tylenol 325mg Tab) 650 mg PO Q6 PRN PRN Reason: Pain, moderate (4-7) Last Admin: 09/19/17 20:15 Dose: 650 mg Amlodipine Besylate (Norvasc) 5 mg PO DAILY [facility] Last Admin: 09/23/17 10:59 Dose: 5 mg Aspirin (Ecotrin) 81 mg PO DAILY [facility] Last Admin: 09/23/17 10:59 Dose: 81 mg Benzocaine/Menthol (Cepacol Sore Throat) 1 poppy MT Q2H PRN PRN Reason: Sore Throat Last Admin: 09/21/17 10:32 Dose: 1 poppy Betamethasone/Clotrimazole (Lotrisone) 0 gm TOP BID [facility] Last Admin: 09/23/17 11:00 Dose: 1 applic Calcium Acetate (Phoslo) 667 mg PO TIDCC [facility] Last Admin: 09/23/17 13:00 Dose: 667 mg Carvedilol (Coreg) 3.125 mg PO BID [facility] Last Admin: 09/23/17 10:59 Dose: 3.125 mg Clindamycin HCl (Cleocin) 300 mg PO BID [facility] PRN Reason: Protocol Stop: 09/26/17 18:01 Last Admin: 09/23/17 10:59 Dose: 300 mg Dextrose (Dextrose 50% Inj) 25 ml IV Q4H PRN PRN Reason: Hypoglycemia Last Admin: 09/18/17 00:23 Dose: 25 ml Epoetin Alec (Procrit) 10,000 unit IV TTS [facility] Stop: 10/01/17 10:01 Last Admin: 09/21/17 11:57 Dose: 10,000 unit Famotidine (Pepcid) 20 mg PO DAILY [facility] Last Admin: 09/23/17 10:59 Dose: 20 mg Gabapentin (Neurontin) 200 mg PO Q12 [facility] Last Admin: 09/23/17 16:05 Dose: Not Given Heparin Sodium (Porcine) (Heparin) 5,000 units SC Q12 [facility] Last Admin: 09/23/17 16:06 Dose: Not Given Vancomycin/Sodium Chloride (Vancomycin 1 Gm/Ns 200 Ml) 1 gm in 200 mls @ 133 mls/hr IVPB TTS [facility] PRN Reason: Protocol Stop: 10/01/17 11:31 Last Admin: 09/21/17 12:59 Dose: 133 mls/hr Insulin Glargine (Lantus) 15 unit SC [facility] Last Admin: 09/23/17 16:05 Dose: Not Given Insulin Human Regular (Novolin R) 0 unit SC Q6 [facility] PRN Reason: Protocol Last Admin: 09/23/17 13:00 Dose: Not Given Nystatin (Nystatin Oral Susp) 5 ml PO Q6 [facility] Last Admin: 09/23/17 13:00 Dose: 5 ml Oxycodone/Acetaminophen (Percocet 5/325 Mg Tab) 1 tab PO Q4H PRN PRN Reason: Pain, moderate (4-7) Stop: 09/25/17 08:00 Last Admin: 09/23/17 11:32 Dose: 1 tab Rosuvastatin Calcium (Crestor) 10 mg PO HS [facility] Last Admin: 09/22/17 21:46 Dose: 10 mg Vitamin B Complex/Vit C/Folic Acid (Nephro-Cony) 1 tab PO DAILY [facility] Last Admin: 09/23/17 10:59 Dose: 1 tab - Labs Labs: 09/20/17 12:11 09/20/17 12:11 PT 14.9 SECONDS (9.7-12.2) H 09/18/17 03:42 INR 1.3 09/18/17 03:42 APTT 35 SECONDS (21-34) H 09/18/17 03:42 - Constitutional Appears: Well, No Acute Distress - Head Exam Head Exam: ATRAUMATIC - Neck Exam Neck Exam: Full ROM - Respiratory Exam Respiratory Exam: NORMAL BREATHING PATTERN - Cardiovascular Exam Additional comments: +radial pulse - Extremities Exam Additional comments: +ROM finger, no pain - Neurological Exam Neurological Exam: Alert, Awake, Oriented x3 - Psychiatric Exam Psychiatric exam: Normal Affect, Normal Mood - Skin Skin Exam: Warm Additional comments: still purulent drainage from right index finger still noted blood noted open wound to finger swelling improved Assessment and Plan (1) Abscess of finger of right hand Assessment & Plan: draining patient encourage to be compliant with soaks to encourage drainage and keep wound clean advised patient again that there is possibility of partial amputation of finger if infection can not be cleared and wound does not heal patient verbalized understanding and agreed to soaks noted bony involvement on xray, highly suspicious for osteomyelitis, antibiotics per Dr. Be d/w Dr. Luo, agrees with above. Will continue antibiotics at this time and if no improvement in short term, will consider amputation Status: Acute (2) Osteomyelitis of finger of right hand Status: Acute
--- NOTE | 2017-09-23 19:21 | CP.PCM.PN ---
Subjective - Date & Time of Evaluation Date of Evaluation: 09/23/17 Time of Evaluation: 19:13 - Subjective Subjective: Patient complaining of pain over the upper extremity on the right side. Denies any nausea, having some difficulty in going to the bathroom. Feeling depressed on and off. On examination vital signs stable. Chest good air entry regular heart sound. Patient is a 52-year-old female with peripheral vascular disease status post bilateral below-knee accommodation. Now having possible discoloration of the right index finger. Continue the current monitoring. Will follow the patient Objective - Vital Signs/Intake and Output Vital Signs (last 24 hours): Temp Pulse Resp BP Pulse Ox 98.9 F 88 20 151/79 H 97 09/23/17 15:20 09/23/17 15:20 09/23/17 15:20 09/23/17 15:20 09/23/17 15:20 - Medications Medications: Current Medications Acetaminophen (Tylenol 325mg Tab) 650 mg PO Q6 PRN PRN Reason: Pain, moderate (4-7) Last Admin: 09/19/17 20:15 Dose: 650 mg Amlodipine Besylate (Norvasc) 5 mg PO DAILY [facility] Last Admin: 09/23/17 10:59 Dose: 5 mg Aspirin (Ecotrin) 81 mg PO DAILY [facility] Last Admin: 09/23/17 10:59 Dose: 81 mg Benzocaine/Menthol (Cepacol Sore Throat) 1 poppy MT Q2H PRN PRN Reason: Sore Throat Last Admin: 09/21/17 10:32 Dose: 1 poppy Betamethasone/Clotrimazole (Lotrisone) 0 gm TOP BID [facility] Last Admin: 09/23/17 17:59 Dose: 1 applic Calcium Acetate (Phoslo) 667 mg PO TIDCC [facility] Last Admin: 09/23/17 17:59 Dose: 667 mg Carvedilol (Coreg) 3.125 mg PO BID [facility] Last Admin: 09/23/17 17:59 Dose: 3.125 mg Clindamycin HCl (Cleocin) 300 mg PO BID [facility] PRN Reason: Protocol Stop: 09/26/17 18:01 Last Admin: 09/23/17 17:58 Dose: 300 mg Dextrose (Dextrose 50% Inj) 25 ml IV Q4H PRN PRN Reason: Hypoglycemia Last Admin: 09/18/17 00:23 Dose: 25 ml Epoetin Alec (Procrit) 10,000 unit IV TTS [facility] Stop: 10/01/17 10:01 Last Admin: 09/21/17 11:57 Dose: 10,000 unit Famotidine (Pepcid) 20 mg PO DAILY [facility] Last Admin: 09/23/17 10:59 Dose: 20 mg Gabapentin (Neurontin) 200 mg PO Q12 [facility] Last Admin: 09/23/17 16:05 Dose: Not Given Heparin Sodium (Porcine) (Heparin) 5,000 units SC Q12 [facility] Last Admin: 09/23/17 16:06 Dose: Not Given Vancomycin/Sodium Chloride (Vancomycin 1 Gm/Ns 200 Ml) 1 gm in 200 mls @ 133 mls/hr IVPB TTS [facility] PRN Reason: Protocol Stop: 10/01/17 11:31 Last Admin: 09/21/17 12:59 Dose: 133 mls/hr Insulin Glargine (Lantus) 15 unit SC HS [facility] Last Admin: 09/23/17 16:05 Dose: Not Given Insulin Human Regular (Novolin R) 0 unit SC Q6 [facility] PRN Reason: Protocol Last Admin: 09/23/17 17:19 Dose: Not Given Nystatin (Nystatin Oral Susp) 5 ml PO Q6 [facility] Last Admin: 09/23/17 17:58 Dose: 5 ml Oxycodone/Acetaminophen (Percocet 5/325 Mg Tab) 1 tab PO Q4H PRN PRN Reason: Pain, moderate (4-7) Stop: 09/25/17 08:00 Last Admin: 09/23/17 11:32 Dose: 1 tab Rosuvastatin Calcium (Crestor) 10 mg PO HS [facility] Last Admin: 09/22/17 21:46 Dose: 10 mg Vitamin B Complex/Vit C/Folic Acid (Nephro-Cony) 1 tab PO DAILY [facility] Last Admin: 09/23/17 10:59 Dose: 1 tab - Labs Labs: 09/20/17 12:11 09/20/17 12:11 PT 14.9 SECONDS (9.7-12.2) H 09/18/17 03:42 INR 1.3 09/18/17 03:42 APTT 35 SECONDS (21-34) H 09/18/17 03:42
--- NOTE | 2017-09-23 23:39 | CP.PCM.PN ---
Subjective - Date & Time of Evaluation Date of Evaluation: 09/23/17 Time of Evaluation: 23:39 - Subjective Subjective: AFEBRILE, STILL C/O PAIN RT INDEX FINGER. REFUSES TO SOAK FINGERAS PER ORTHO Objective - Vital Signs/Intake and Output Vital Signs (last 24 hours): Temp Pulse Resp BP Pulse Ox 98.9 F 88 20 151/79 H 97 09/23/17 15:20 09/23/17 15:20 09/23/17 15:20 09/23/17 15:20 09/23/17 15:20 - Medications Medications: Current Medications Acetaminophen (Tylenol 325mg Tab) 650 mg PO Q6 PRN PRN Reason: Pain, moderate (4-7) Last Admin: 09/19/17 20:15 Dose: 650 mg Amlodipine Besylate (Norvasc) 5 mg PO DAILY [facility] Last Admin: 09/23/17 10:59 Dose: 5 mg Aspirin (Ecotrin) 81 mg PO DAILY [facility] Last Admin: 09/23/17 10:59 Dose: 81 mg Benzocaine/Menthol (Cepacol Sore Throat) 1 poppy MT Q2H PRN PRN Reason: Sore Throat Last Admin: 09/21/17 10:32 Dose: 1 poppy Betamethasone/Clotrimazole (Lotrisone) 0 gm TOP BID [facility] Last Admin: 09/23/17 17:59 Dose: 1 applic Calcium Acetate (Phoslo) 667 mg PO TIDCC [facility] Last Admin: 09/23/17 17:59 Dose: 667 mg Carvedilol (Coreg) 3.125 mg PO BID [facility] Last Admin: 09/23/17 17:59 Dose: 3.125 mg Clindamycin HCl (Cleocin) 300 mg PO BID [facility] PRN Reason: Protocol Stop: 09/26/17 18:01 Last Admin: 09/23/17 17:58 Dose: 300 mg Dextrose (Dextrose 50% Inj) 25 ml IV Q4H PRN PRN Reason: Hypoglycemia Last Admin: 09/18/17 00:23 Dose: 25 ml Epoetin Alec (Procrit) 10,000 unit IV TTS [facility] Stop: 10/01/17 10:01 Last Admin: 09/21/17 11:57 Dose: 10,000 unit Famotidine (Pepcid) 20 mg PO DAILY [facility] Last Admin: 09/23/17 10:59 Dose: 20 mg Gabapentin (Neurontin) 200 mg PO Q12 [facility] Last Admin: 09/23/17 21:43 Dose: Not Given Heparin Sodium (Porcine) (Heparin) 5,000 units SC Q12 [facility] Last Admin: 09/23/17 21:42 Dose: Not Given Vancomycin/Sodium Chloride (Vancomycin 1 Gm/Ns 200 Ml) 1 gm in 200 mls @ 133 mls/hr IVPB TTS [facility] PRN Reason: Protocol Stop: 10/01/17 11:31 Last Admin: 09/21/17 12:59 Dose: 133 mls/hr Insulin Glargine (Lantus) 15 unit SC [facility] Last Admin: 09/23/17 21:42 Dose: Not Given Insulin Human Regular (Novolin R) 0 unit SC Q6 [facility] PRN Reason: Protocol Last Admin: 09/23/17 17:19 Dose: Not Given Nystatin (Nystatin Oral Susp) 5 ml PO Q6 [facility] Last Admin: 09/23/17 17:58 Dose: 5 ml Oxycodone/Acetaminophen (Percocet 5/325 Mg Tab) 1 tab PO Q4H PRN PRN Reason: Pain, moderate (4-7) Stop: 09/25/17 08:00 Last Admin: 09/23/17 21:41 Dose: 1 tab Rosuvastatin Calcium (Crestor) 10 mg PO [facility] Last Admin: 09/23/17 21:42 Dose: 10 mg Vitamin B Complex/Vit C/Folic Acid (Nephro-Cony) 1 tab PO DAILY [facility] Last Admin: 09/23/17 10:59 Dose: 1 tab - Labs Labs: 09/20/17 12:11 09/20/17 12:11 PT 14.9 SECONDS (9.7-12.2) H 09/18/17 03:42 INR 1.3 09/18/17 03:42 APTT 35 SECONDS (21-34) H 09/18/17 03:42 - Constitutional Appears: No Acute Distress - Head Exam Head Exam: NORMAL INSPECTION - Eye Exam Eye Exam: EOMI, PERRL - ENT Exam ENT Exam: Normal Oropharynx - Neck Exam Neck Exam: Normal Inspection - Respiratory Exam Respiratory Exam: Clear to Ausculation Bilateral, NORMAL BREATHING PATTERN - Cardiovascular Exam Cardiovascular Exam: REGULAR RHYTHM, +S1, +S2 - GI/Abdominal Exam GI & Abdominal Exam: Soft, Normal Bowel Sounds (DRESSING DRY) - Extremities Exam Additional comments: B/L BKA - Neurological Exam Neurological Exam: Alert, Awake, CN II-XII Intact, Oriented x3 - Psychiatric Exam Psychiatric exam: Normal Mood - Skin Skin Exam: Normal Color, Warm Assessment and Plan (1) Abscess of finger of right hand Assessment & Plan: CPM IV VANCOMYCI POST HD TTS X 6DOSES TOTAL. PO CLEOCIN 300MG PO BID X 5DAYS 09/21/17. Status: Acute (2) ESRD (end stage renal disease) Assessment & Plan: HD TTS. Status: Acute (3) PVD (peripheral vascular disease) Status: Acute (4) S/P BKA (below knee amputation) bilateral Status: Acute (5) Diabetes mellitus Status: Acute (6) HTN (hypertension) Status: Acute (7) History of colostomy reversal Assessment & Plan: S/P REVERSAL ILEOSTOMY -POST OP DAY 7. INCISION CLEAN +VE STACIE MINIMAL SER SANGUINOUS DRAINAGE INCISION SITE LWC PER SURGERY. Status: Acute
[2017-09-24] MEDS: (Novolin R) Insulin Human Regular 100 units/ml vial SC SCH ×3 (06:29→18:38)
[2017-09-24] MEDS: Nystatin 100,000 Units/ml Oral Susp 5 ml UD PO SCH ×4 (06:33→18:40)
--- NOTE | 2017-09-24 09:24 | CP.PCM.PN ---
Subjective - Date & Time of Evaluation Date of Evaluation: 09/24/17 Time of Evaluation: 09:24 - Subjective Subjective: Patient states her finger feels the same. She is currently soaking her finger. She says the pain is the same, no new complaints. Review of Systems - Review of Systems All systems: reviewed and no additional remarkable complaints except - Constitutional Additional comments: no fever/chills - Cardiovascular Cardiovascular: UNREMARKABLE - Respiratory Respiratory: UNREMARKABLE - Gastrointestinal Gastrointestinal: UNREMARKABLE - Musculoskeletal Musculoskeletal: As Par HPI - Integumentary Integumentary: As Per HPI - Neurological Neurological: As Per HPI - Hematologic/Lymphatic Hematologic: UNREMARKABLE Objective - Vital Signs/Intake and Output Vital Signs (last 24 hours): Temp Pulse Resp BP Pulse Ox 99.7 F H 93 H 20 182/77 H 95 09/24/17 07:00 09/24/17 07:00 09/24/17 07:00 09/24/17 07:00 09/24/17 07:00 Intake and Output: 09/24/17 09/24/17 06:59 18:59 Intake Total 118 Balance 118 - Medications Medications: Current Medications Acetaminophen (Tylenol 325mg Tab) 650 mg PO Q6 PRN PRN Reason: Pain, moderate (4-7) Last Admin: 09/19/17 20:15 Dose: 650 mg Amlodipine Besylate (Norvasc) 5 mg PO DAILY [facility] Last Admin: 09/23/17 10:59 Dose: 5 mg Aspirin (Ecotrin) 81 mg PO DAILY [facility] Last Admin: 09/23/17 10:59 Dose: 81 mg Benzocaine/Menthol (Cepacol Sore Throat) 1 poppy MT Q2H PRN PRN Reason: Sore Throat Last Admin: 09/21/17 10:32 Dose: 1 poppy Betamethasone/Clotrimazole (Lotrisone) 0 gm TOP BID [facility] Last Admin: 09/23/17 17:59 Dose: 1 applic Calcium Acetate (Phoslo) 667 mg PO TIDCC [facility] Last Admin: 09/24/17 08:21 Dose: 667 mg Carvedilol (Coreg) 3.125 mg PO BID [facility] Last Admin: 09/23/17 17:59 Dose: 3.125 mg Clindamycin HCl (Cleocin) 300 mg PO BID [facility] PRN Reason: Protocol Stop: 09/26/17 18:01 Last Admin: 09/23/17 17:58 Dose: 300 mg Dextrose (Dextrose 50% Inj) 25 ml IV Q4H PRN PRN Reason: Hypoglycemia Last Admin: 09/18/17 00:23 Dose: 25 ml Epoetin Alec (Procrit) 10,000 unit IV TTS [facility] Stop: 10/01/17 10:01 Last Admin: 09/21/17 11:57 Dose: 10,000 unit Famotidine (Pepcid) 20 mg PO DAILY [facility] Last Admin: 09/23/17 10:59 Dose: 20 mg Gabapentin (Neurontin) 200 mg PO Q12 [facility] Last Admin: 09/23/17 21:43 Dose: Not Given Heparin Sodium (Porcine) (Heparin) 5,000 units SC Q12 [facility] Last Admin: 09/23/17 21:42 Dose: Not Given Vancomycin/Sodium Chloride (Vancomycin 1 Gm/Ns 200 Ml) 1 gm in 200 mls @ 133 mls/hr IVPB TTS [facility] PRN Reason: Protocol Stop: 10/01/17 11:31 Last Admin: 09/21/17 12:59 Dose: 133 mls/hr Insulin Glargine (Lantus) 15 unit SC HS [facility] Last Admin: 09/23/17 23:49 Dose: 15 u Insulin Human Regular (Novolin R) 0 unit SC Q6 [facility] PRN Reason: Protocol Last Admin: 09/24/17 06:29 Dose: Not Given Nystatin (Nystatin Oral Susp) 5 ml PO Q6 [facility] Last Admin: 09/24/17 06:33 Dose: Not Given Oxycodone/Acetaminophen (Percocet 5/325 Mg Tab) 1 tab PO Q4H PRN PRN Reason: Pain, moderate (4-7) Stop: 09/25/17 08:00 Last Admin: 09/23/17 21:41 Dose: 1 tab Rosuvastatin Calcium (Crestor) 10 mg PO HS [facility] Last Admin: 09/23/17 21:42 Dose: 10 mg Vitamin B Complex/Vit C/Folic Acid (Nephro-Cony) 1 tab PO DAILY [facility] Last Admin: 09/23/17 10:59 Dose: 1 tab - Labs Labs: 09/20/17 12:11 09/20/17 12:11 PT 14.9 SECONDS (9.7-12.2) H 09/18/17 03:42 INR 1.3 09/18/17 03:42 APTT 35 SECONDS (21-34) H 09/18/17 03:42 - Constitutional Appears: Well, No Acute Distress - Head Exam Head Exam: ATRAUMATIC - Neck Exam Neck Exam: Full ROM - Respiratory Exam Respiratory Exam: NORMAL BREATHING PATTERN - Cardiovascular Exam Additional comments: +radial pulse - Extremities Exam Additional comments: still purulent drainage from right index finger still noted blood noted open wound to finger swelling improving - Neurological Exam Neurological Exam: Alert, Awake, Oriented x3 Neuro motor strength exam: Right Upper Extremity: 5 - Psychiatric Exam Psychiatric exam: Normal Affect, Normal Mood - Skin Skin Exam: Warm Additional comments: less drainage today Assessment and Plan (1) Abscess of finger of right hand Assessment & Plan: draining patient encourage to be compliant with soaks to encourage drainage and keep wound clean advised patient again that there is possibility of partial amputation of finger if infection can not be cleared and wound does not heal patient verbalized understanding and agreed to soaks noted bony involvement on xray, highly suspicious for osteomyelitis, antibiotics per Dr. Be d/w Dr. Luo, agrees with above. Will continue antibiotics at this time and if no improvement in short term, will consider amputation Status: Acute (2) Osteomyelitis of finger of right hand Status: Acute
[2017-09-24] MEDS: Clotrimazole/Betamethasone Cream(15 gm) TOP SCH ×2 (09:49→18:40)
[2017-09-24] MEDS: Multivitamin Vitamin B Complex (Nephro-Vite) Tab PO SCH (09:53)
[2017-09-24] MEDS: Oxycodone/Acetaminophen 5/325 mg Tab PO PRN ×3 (10:00→18:54)
--- NOTE | 2017-09-24 10:10 | CP.PCM.PN ---
Subjective - Date & Time of Evaluation Date of Evaluation: 09/24/17 Time of Evaluation: 10:08 - Subjective Subjective: seen and examined in good spirits c/o mild abdominal pain where MANPREET drain removed tolerating diet Objective - Vital Signs/Intake and Output Vital Signs (last 24 hours): Temp Pulse Resp BP Pulse Ox 99.7 F H 93 H 20 182/77 H 95 09/24/17 07:00 09/24/17 07:00 09/24/17 07:00 09/24/17 07:00 09/24/17 07:00 Intake and Output: 09/24/17 09/24/17 06:59 18:59 Intake Total 118 Balance 118 - Medications Medications: Current Medications Acetaminophen (Tylenol 325mg Tab) 650 mg PO Q6 PRN PRN Reason: Pain, moderate (4-7) Last Admin: 09/19/17 20:15 Dose: 650 mg Amlodipine Besylate (Norvasc) 5 mg PO DAILY [facility] Last Admin: 09/23/17 10:59 Dose: 5 mg Aspirin (Ecotrin) 81 mg PO DAILY [facility] Last Admin: 09/23/17 10:59 Dose: 81 mg Benzocaine/Menthol (Cepacol Sore Throat) 1 poppy MT Q2H PRN PRN Reason: Sore Throat Last Admin: 09/21/17 10:32 Dose: 1 poppy Betamethasone/Clotrimazole (Lotrisone) 0 gm TOP BID [facility] Last Admin: 09/24/17 09:49 Dose: 1 applic Calcium Acetate (Phoslo) 667 mg PO TIDCC [facility] Last Admin: 09/24/17 08:21 Dose: 667 mg Carvedilol (Coreg) 3.125 mg PO BID [facility] Last Admin: 09/23/17 17:59 Dose: 3.125 mg Clindamycin HCl (Cleocin) 300 mg PO BID [facility] PRN Reason: Protocol Stop: 09/26/17 18:01 Last Admin: 09/24/17 09:47 Dose: 300 mg Dextrose (Dextrose 50% Inj) 25 ml IV Q4H PRN PRN Reason: Hypoglycemia Last Admin: 09/18/17 00:23 Dose: 25 ml Epoetin Alec (Procrit) 10,000 unit IV TTS [facility] Stop: 10/01/17 10:01 Last Admin: 09/21/17 11:57 Dose: 10,000 unit Famotidine (Pepcid) 20 mg PO DAILY [facility] Last Admin: 09/24/17 09:47 Dose: 20 mg Gabapentin (Neurontin) 200 mg PO Q12 [facility] Last Admin: 09/24/17 09:47 Dose: Not Given Heparin Sodium (Porcine) (Heparin) 5,000 units SC Q12 [facility] Last Admin: 09/24/17 09:47 Dose: Not Given Vancomycin/Sodium Chloride (Vancomycin 1 Gm/Ns 200 Ml) 1 gm in 200 mls @ 133 mls/hr IVPB TTS [facility] PRN Reason: Protocol Stop: 10/01/17 11:31 Last Admin: 09/21/17 12:59 Dose: 133 mls/hr Insulin Glargine (Lantus) [address] [facility] Last Admin: 09/23/17 23:49 Dose: 15 u Insulin Human Regular (Novolin R) 0 unit SC Q6 [facility] PRN Reason: Protocol Last Admin: 09/24/17 06:29 Dose: Not Given Nystatin (Nystatin Oral Susp) 5 ml PO Q6 [facility] Last Admin: 09/24/17 06:33 Dose: Not Given Oxycodone/Acetaminophen (Percocet 5/325 Mg Tab) 1 tab PO Q4H PRN PRN Reason: Pain, moderate (4-7) Stop: 09/25/17 08:00 Last Admin: 09/24/17 10:00 Dose: 1 tab Rosuvastatin Calcium (Crestor) [address] [facility] Last Admin: 09/23/17 21:42 Dose: 10 mg Vitamin B Complex/Vit C/Folic Acid (Nephro-Cony) 1 tab PO DAILY [facility] Last Admin: 09/24/17 09:53 Dose: 1 tab - Labs Labs: 09/20/17 12:11 09/20/17 12:11 PT 14.9 SECONDS (9.7-12.2) H 09/18/17 03:42 INR 1.3 09/18/17 03:42 APTT 35 SECONDS (21-34) H 09/18/17 03:42 - Constitutional Appears: Non-toxic, Chronically Ill - Head Exam Head Exam: NORMAL INSPECTION, NORMOCEPHALIC - Eye Exam Eye Exam: Normal appearance Pupil Exam: PERRL - ENT Exam ENT Exam: Mucous Membranes Moist, Normal Exam - Neck Exam Neck Exam: Full ROM, Normal Inspection - Respiratory Exam Respiratory Exam: Decreased Breath Sounds, NORMAL BREATHING PATTERN - Cardiovascular Exam Cardiovascular Exam: REGULAR RHYTHM, RRR (rt chest permcath) - GI/Abdominal Exam GI & Abdominal Exam: Distended (abdominal binder), Soft - Extremities Exam Extremities Exam: Normal Inspection (b/l amputee) - Neurological Exam Neurological Exam: Alert, Awake, Oriented x3 - Psychiatric Exam Psychiatric exam: Normal Affect, Normal Mood - Skin Skin Exam: Dry, Warm Assessment and Plan (1) End stage renal disease Status: Acute (2) Hypotension Status: Acute (3) PVD (peripheral vascular disease) Status: Acute (4) S/P BKA (below knee amputation) bilateral Status: Acute (5) Colostomy complication, unspecified Status: Acute - Assessment and Plan (Free Text) Assessment: maintain hd tts stable from renal standpoint
[2017-09-24 14:23] LABS: BASO # 0.1 K/uL (0.0-0.2); BASO % 0.6 % (0.0-2.0); EOS # 0.2 K/uL (0.0-0.7); HEMOGLOBIN 7.5 g/dL (11.0-16.0); LYMPH # 1.6 K/uL (1.0-4.3); LYMPH % 13.4 % (20.0-40.0); MEAN CELL VOLUME 98.3 fL (81.0-99.0); MEAN CORPUSCULAR HEMOGLOBIN 32.6 pg (27.0-31.0); MEAN CORPUSCULAR HGB CONC 33.2 g/dL (33.0-37.0); MEAN PLATELET VOLUME 8.4 fL (7.2-11.7); MONO # 0.9 K/uL (0.0-0.8); MONO % 7.7 % (0.0-10.0); NEUT # 9.1 K/uL (1.8-7.0); NEUT % 76.3 % (50.0-75.0); RBC 2.31 Mil/uL (3.80-5.20); RED CELL DISTRIBUTION WIDTH 14.9 % (11.5-14.5)
[2017-09-24 14:48] LABS: CALCIUM 9.1 mg/dl (8.6-10.4)
[2017-09-24] MEDS: Epoetin Alfa 10,000 unit/ml Dialysis IV SCH (15:20)
[2017-09-24] MEDS: Vancomycin 1 gm/NS 200 ml 1 GM/200 ML BAG IVPB SCH (15:36)
[2017-09-24] MEDS: (Lantus) Insulin Glargine, Recombinant SC SCH (21:52)
--- NOTE | 2017-09-24 21:57 | CP.PCM.PN ---
Subjective - Date & Time of Evaluation Date of Evaluation: 09/24/17 Time of Evaluation: 21:56 - Subjective Subjective: pt is doing well no fever discharge noted from lower end of wound mild continue antibiotic possible d/c plan in few days Objective - Vital Signs/Intake and Output Vital Signs (last 24 hours): Temp Pulse Resp BP Pulse Ox 98 F 82 19 141/72 100 09/24/17 17:00 09/24/17 17:00 09/24/17 17:00 09/24/17 17:00 09/24/17 17:00 Intake and Output: 09/24/17 09/25/17 18:59 06:59 Intake Total 480 Balance 480 - Medications Medications: Current Medications Acetaminophen (Tylenol 325mg Tab) 650 mg PO Q6 PRN PRN Reason: Pain, moderate (4-7) Last Admin: 09/19/17 20:15 Dose: 650 mg Amlodipine Besylate (Norvasc) 5 mg PO DAILY [facility] Last Admin: 09/24/17 10:22 Dose: Not Given Aspirin (Ecotrin) 81 mg PO DAILY [facility] Last Admin: 09/24/17 10:39 Dose: 81 mg Benzocaine/Menthol (Cepacol Sore Throat) 1 poppy MT Q2H PRN PRN Reason: Sore Throat Last Admin: 09/21/17 10:32 Dose: 1 poppy Betamethasone/Clotrimazole (Lotrisone) 0 gm TOP BID [facility] Last Admin: 09/24/17 18:40 Dose: 1 applic Calcium Acetate (Phoslo) 667 mg PO TIDCC [facility] Last Admin: 09/24/17 17:39 Dose: 667 mg Carvedilol (Coreg) 3.125 mg PO BID [facility] Last Admin: 09/24/17 18:40 Dose: 3.125 mg Clindamycin HCl (Cleocin) 300 mg PO BID [facility] PRN Reason: Protocol Stop: 09/26/17 18:01 Last Admin: 09/24/17 18:40 Dose: 300 mg Dextrose (Dextrose 50% Inj) 25 ml IV Q4H PRN PRN Reason: Hypoglycemia Last Admin: 09/18/17 00:23 Dose: 25 ml Epoetin Alec (Procrit) 10,000 unit IV TTS [facility] Stop: 10/01/17 10:01 Last Admin: 09/24/17 15:20 Dose: 10,000 unit Famotidine (Pepcid) 20 mg PO DAILY [facility] Last Admin: 09/24/17 09:47 Dose: 20 mg Gabapentin (Neurontin) 200 mg PO Q12 [facility] Last Admin: 09/24/17 21:30 Dose: Not Given Vancomycin/Sodium Chloride (Vancomycin 1 Gm/Ns 200 Ml) 1 gm in 200 mls @ 133 mls/hr IVPB TTS [facility] PRN Reason: Protocol Stop: 10/01/17 11:31 Last Admin: 09/24/17 15:36 Dose: 133 mls/hr Insulin Glargine (Lantus) 15 unit SC HS [facility] Last Admin: 09/24/17 21:52 Dose: 15 u Insulin Human Regular (Novolin R) 0 unit SC Q6 [facility] PRN Reason: Protocol Last Admin: 09/24/17 18:38 Dose: Not Given Nystatin (Nystatin Oral Susp) 5 ml PO Q6 [facility] Last Admin: 09/24/17 18:40 Dose: 5 ml Oxycodone/Acetaminophen (Percocet 5/325 Mg Tab) 1 tab PO Q4H PRN PRN Reason: Pain, moderate (4-7) Stop: 09/25/17 08:00 Last Admin: 09/24/17 18:54 Dose: 1 tab Rosuvastatin Calcium (Crestor) 10 mg PO [facility] Last Admin: 09/24/17 21:29 Dose: 10 mg Vitamin B Complex/Vit C/Folic Acid (Nephro-Cony) 1 tab PO DAILY [facility] Last Admin: 09/24/17 09:53 Dose: 1 tab - Labs Labs: 09/24/17 14:18 09/24/17 14:18 PT 14.9 SECONDS (9.7-12.2) H 09/18/17 03:42 INR 1.3 09/18/17 03:42 APTT 35 SECONDS (21-34) H 09/18/17 03:42
[2017-09-25] MEDS: Nystatin 100,000 Units/ml Oral Susp 5 ml UD PO SCH ×4 (00:59→18:45)
[2017-09-25] MEDS: (Novolin R) Insulin Human Regular 100 units/ml vial SC SCH ×6 (00:59→22:11)
[2017-09-25] MEDS: Oxycodone/Acetaminophen 5/325 mg Tab PO PRN ×2 (01:05→09:58)
[2017-09-25] MEDS ORDERED: Oxycodone/Acetaminophen 5/325 mg Tab PO PRN (09:03)
[2017-09-25] MEDS: Multivitamin Vitamin B Complex (Nephro-Vite) Tab PO SCH (09:57)
[2017-09-25] MEDS: Clotrimazole/Betamethasone Cream(15 gm) TOP SCH ×2 (10:00→18:43)
--- NOTE | 2017-09-25 11:02 | CP.PCM.PN ---
Subjective - Date & Time of Evaluation Date of Evaluation: 09/25/17 Time of Evaluation: 11:00 - Subjective Subjective: seen and examined no events labs noted no n/v/d/sob/dizziness/cp/f/c Objective - Vital Signs/Intake and Output Vital Signs (last 24 hours): Temp Pulse Resp BP Pulse Ox 98.9 F 94 H 20 178/95 H 96 09/24/17 23:05 09/24/17 23:05 09/24/17 23:05 09/25/17 10:25 09/24/17 23:05 Intake and Output: 09/25/17 09/25/17 06:59 18:59 Intake Total 400 Balance 400 - Medications Medications: Current Medications Acetaminophen (Tylenol 325mg Tab) 650 mg PO Q6 PRN PRN Reason: Pain, moderate (4-7) Last Admin: 09/19/17 20:15 Dose: 650 mg Aspirin (Ecotrin) 81 mg PO DAILY [facility] Last Admin: 09/25/17 09:57 Dose: 81 mg Benzocaine/Menthol (Cepacol Sore Throat) 1 poppy MT Q2H PRN PRN Reason: Sore Throat Last Admin: 09/21/17 10:32 Dose: 1 poppy Betamethasone/Clotrimazole (Lotrisone) 0 gm TOP BID [facility] Last Admin: 09/25/17 10:00 Dose: 1 applic Calcium Acetate (Phoslo) 667 mg PO TIDCC [facility] Last Admin: 09/25/17 08:10 Dose: 667 mg Carvedilol (Coreg) 3.125 mg PO BID [facility] Last Admin: 09/25/17 09:58 Dose: 3.125 mg Clindamycin HCl (Cleocin) 300 mg PO BID [facility] PRN Reason: Protocol Stop: 09/26/17 18:01 Last Admin: 09/25/17 10:05 Dose: 300 mg Dextrose (Dextrose 50% Inj) 25 ml IV Q4H PRN PRN Reason: Hypoglycemia Last Admin: 09/18/17 00:23 Dose: 25 ml Epoetin Alec (Procrit) 10,000 unit IV TTS [facility] Stop: 10/01/17 10:01 Last Admin: 09/24/17 15:20 Dose: 10,000 unit Famotidine (Pepcid) 20 mg PO DAILY [facility] Last Admin: 09/25/17 09:57 Dose: 20 mg Gabapentin (Neurontin) 200 mg PO Q12 [facility] Last Admin: 09/25/17 10:00 Dose: Not Given Heparin Sodium (Porcine) (Heparin) 5,000 units SC Q12 [facility] Last Admin: 09/25/17 09:59 Dose: Not Given Vancomycin/Sodium Chloride (Vancomycin 1 Gm/Ns 200 Ml) 1 gm in 200 mls @ 133 mls/hr IVPB TTS [facility] PRN Reason: Protocol Stop: 10/01/17 11:31 Last Admin: 09/24/17 15:36 Dose: 133 mls/hr Insulin Glargine (Lantus) 15 unit SC [facility] Last Admin: 09/24/17 21:52 Dose: 15 u Insulin Human Regular (Novolin R) 0 unit SC [facility] PRN Reason: Protocol Last Admin: 09/25/17 08:59 Dose: Not Given Nystatin (Nystatin Oral Susp) 5 ml PO Q6 [facility] Last Admin: 09/25/17 08:07 Dose: Not Given Oxycodone/Acetaminophen (Percocet 5/325 Mg Tab) 1 tab PO Q4H PRN PRN Reason: Pain, severe (8-10) Stop: 09/28/17 09:04 Last Admin: 09/25/17 09:58 Dose: 1 tab Rosuvastatin Calcium (Crestor) 10 mg PO [facility] Last Admin: 09/24/17 21:29 Dose: 10 mg Vitamin B Complex/Vit C/Folic Acid (Nephro-Cony) 1 tab PO DAILY [facility] Last Admin: 09/25/17 09:57 Dose: 1 tab - Labs Labs: 09/24/17 14:18 09/24/17 14:18 PT 14.9 SECONDS (9.7-12.2) H 09/18/17 03:42 INR 1.3 09/18/17 03:42 APTT 35 SECONDS (21-34) H 09/18/17 03:42 - Constitutional Appears: No Acute Distress, Chronically Ill - Head Exam Head Exam: NORMAL INSPECTION, NORMOCEPHALIC - Eye Exam Eye Exam: Normal appearance, PERRL - ENT Exam ENT Exam: Mucous Membranes Moist, Normal Exam - Neck Exam Neck Exam: Normal Inspection - Respiratory Exam Respiratory Exam: Clear to Ausculation Bilateral, NORMAL BREATHING PATTERN - Cardiovascular Exam Cardiovascular Exam: REGULAR RHYTHM, RRR - GI/Abdominal Exam GI & Abdominal Exam: Distended (binder in place), Soft - Extremities Exam Extremities Exam: Normal Inspection (b/l amputee) - Neurological Exam Neurological Exam: Alert, Awake, Oriented x3 - Psychiatric Exam Psychiatric exam: Normal Affect, Normal Mood - Skin Skin Exam: Dry, Warm Assessment and Plan (1) End stage renal disease Status: Acute (2) Hypotension Status: Acute (3) PVD (peripheral vascular disease) Status: Acute (4) S/P BKA (below knee amputation) bilateral Status: Acute (5) Colostomy complication, unspecified Status: Acute - Assessment and Plan (Free Text) Assessment: hd tts anabela w/ hd, poor responder due to chronic infection increase norvasc dose to 10mg
--- NOTE | 2017-09-25 12:12 | CP.PCM.PN ---
Subjective - Date & Time of Evaluation Date of Evaluation: 09/25/17 Time of Evaluation: 12:09 - Subjective Subjective: Patient states she still has a lot of pain in her finger. No new complaints. Review of Systems - Review of Systems All systems: reviewed and no additional remarkable complaints except - Musculoskeletal Musculoskeletal: As Par HPI Objective - Vital Signs/Intake and Output Vital Signs (last 24 hours): Temp Pulse Resp BP Pulse Ox 98.9 F 94 H 20 178/95 H 96 09/24/17 23:05 09/24/17 23:05 09/24/17 23:05 09/25/17 10:25 09/24/17 23:05 Intake and Output: 09/25/17 09/25/17 06:59 18:59 Intake Total 400 Balance 400 - Medications Medications: Current Medications Acetaminophen (Tylenol 325mg Tab) 650 mg PO Q6 PRN PRN Reason: Pain, moderate (4-7) Last Admin: 09/19/17 20:15 Dose: 650 mg Amlodipine Besylate (Norvasc) 10 mg PO DAILY [facility] Aspirin (Ecotrin) 81 mg PO DAILY [facility] Last Admin: 09/25/17 09:57 Dose: 81 mg Benzocaine/Menthol (Cepacol Sore Throat) 1 poppy MT Q2H PRN PRN Reason: Sore Throat Last Admin: 09/21/17 10:32 Dose: 1 poppy Betamethasone/Clotrimazole (Lotrisone) 0 gm TOP BID [facility] Last Admin: 09/25/17 10:00 Dose: 1 applic Calcium Acetate (Phoslo) 667 mg PO TIDCC [facility] Last Admin: 09/25/17 11:52 Dose: 667 mg Carvedilol (Coreg) 3.125 mg PO BID [facility] Last Admin: 09/25/17 09:58 Dose: 3.125 mg Clindamycin HCl (Cleocin) 300 mg PO BID [facility] PRN Reason: Protocol Stop: 09/26/17 18:01 Last Admin: 09/25/17 10:05 Dose: 300 mg Dextrose (Dextrose 50% Inj) 25 ml IV Q4H PRN PRN Reason: Hypoglycemia Last Admin: 09/18/17 00:23 Dose: 25 ml Epoetin Alec (Procrit) 10,000 unit IV TTS [facility] Stop: 10/01/17 10:01 Last Admin: 09/24/17 15:20 Dose: 10,000 unit Famotidine (Pepcid) 20 mg PO DAILY [facility] Last Admin: 09/25/17 09:57 Dose: 20 mg Gabapentin (Neurontin) 200 mg PO Q12 [facility] Last Admin: 09/25/17 10:00 Dose: Not Given Heparin Sodium (Porcine) (Heparin) 5,000 units SC Q12 [facility] Last Admin: 09/25/17 09:59 Dose: Not Given Vancomycin/Sodium Chloride (Vancomycin 1 Gm/Ns 200 Ml) 1 gm in 200 mls @ 133 mls/hr IVPB TTS [facility] PRN Reason: Protocol Stop: 10/01/17 11:31 Last Admin: 09/24/17 15:36 Dose: 133 mls/hr Insulin Glargine (Lantus) 15 unit SC HS [facility] Last Admin: 09/24/17 21:52 Dose: 15 u Insulin Human Regular (Novolin R) 0 unit SC ACHS [facility] PRN Reason: Protocol Last Admin: 09/25/17 11:51 Dose: Not Given Nystatin (Nystatin Oral Susp) 5 ml PO Q6 [facility] Last Admin: 09/25/17 11:52 Dose: Not Given Oxycodone/Acetaminophen (Percocet 5/325 Mg Tab) 1 tab PO Q4H PRN PRN Reason: Pain, severe (8-10) Stop: 09/28/17 09:04 Last Admin: 09/25/17 09:58 Dose: 1 tab Rosuvastatin Calcium (Crestor) [address] [facility] Last Admin: 09/24/17 21:29 Dose: 10 mg Vitamin B Complex/Vit C/Folic Acid (Nephro-Cony) 1 tab PO DAILY [facility] Last Admin: 09/25/17 09:57 Dose: 1 tab - Labs Labs: 09/24/17 14:18 09/24/17 14:18 PT 14.9 SECONDS (9.7-12.2) H 09/18/17 03:42 INR 1.3 09/18/17 03:42 APTT 35 SECONDS (21-34) H 09/18/17 03:42 - Constitutional Appears: Well, No Acute Distress - Head Exam Head Exam: ATRAUMATIC - Neck Exam Neck Exam: Full ROM - Respiratory Exam Respiratory Exam: NORMAL BREATHING PATTERN - Extremities Exam Additional comments: clinically improving today. skin intact, no active drainage, no wound visible today - Neurological Exam Neurological Exam: Alert, Awake, Oriented x3 Neuro motor strength exam: Right Upper Extremity: 5 - Psychiatric Exam Psychiatric exam: Normal Affect, Normal Mood - Skin Skin Exam: Warm Additional comments: wound dry today, not able to express any pus, no active drainage. swelling improving. Assessment and Plan (1) Abscess of finger of right hand Assessment & Plan: continue soaks TID-QID continue monitoring today improving, dry continue antibiotics per ID will monitor d/w Dr. Luo, agrees with above Status: Acute (2) Osteomyelitis of finger of right hand Status: Acute
[2017-09-25] MEDS: (Lantus) Insulin Glargine, Recombinant SC SCH (22:11)
[2017-09-26] MEDS: Nystatin 100,000 Units/ml Oral Susp 5 ml UD PO SCH ×4 (00:14→17:51)
[2017-09-26] MEDS: Oxycodone/Acetaminophen 5/325 mg Tab PO PRN ×3 (06:07→19:17)
[2017-09-26] MEDS: (Novolin R) Insulin Human Regular 100 units/ml vial SC SCH ×4 (07:36→21:28)
--- NOTE | 2017-09-26 08:16 | CP.PCM.PN ---
Subjective - Date & Time of Evaluation Date of Evaluation: 09/26/17 Time of Evaluation: 08:13 - Subjective Subjective: seen and examined. no events rt finger pain, in dressing. no f/c/sob/cp/dizziness/n/v/d/ Objective - Vital Signs/Intake and Output Vital Signs (last 24 hours): Temp Pulse Resp BP Pulse Ox 97.9 F 95 H 20 166/67 H 97 09/26/17 07:05 09/26/17 07:05 09/26/17 07:05 09/26/17 07:05 09/26/17 07:05 Intake and Output: 09/26/17 09/26/17 06:59 18:59 Intake Total 440 Balance 440 - Medications Medications: Current Medications Acetaminophen (Tylenol 325mg Tab) 650 mg PO Q6 PRN PRN Reason: Pain, moderate (4-7) Last Admin: 09/19/17 20:15 Dose: 650 mg Amlodipine Besylate (Norvasc) 10 mg PO DAILY [facility] Aspirin (Ecotrin) 81 mg PO DAILY [facility] Last Admin: 09/25/17 09:57 Dose: 81 mg Benzocaine/Menthol (Cepacol Sore Throat) 1 poppy MT Q2H PRN PRN Reason: Sore Throat Last Admin: 09/21/17 10:32 Dose: 1 poppy Betamethasone/Clotrimazole (Lotrisone) 0 gm TOP BID [facility] Last Admin: 09/25/17 18:43 Dose: 1 applic Calcium Acetate (Phoslo) 667 mg PO TIDCC [facility] Last Admin: 09/26/17 08:10 Dose: 667 mg Carvedilol (Coreg) 3.125 mg PO BID [facility] Last Admin: 09/25/17 18:41 Dose: 3.125 mg Dextrose (Dextrose 50% Inj) 25 ml IV Q4H PRN PRN Reason: Hypoglycemia Last Admin: 09/18/17 00:23 Dose: 25 ml Epoetin Alec (Procrit) 10,000 unit IV TTS [facility] Stop: 10/01/17 10:01 Last Admin: 09/24/17 15:20 Dose: 10,000 unit Famotidine (Pepcid) 20 mg PO DAILY [facility] Last Admin: 09/25/17 09:57 Dose: 20 mg Gabapentin (Neurontin) 200 mg PO Q12 [facility] Last Admin: 09/25/17 22:11 Dose: Not Given Heparin Sodium (Porcine) (Heparin) 5,000 units SC Q12 [facility] Last Admin: 09/25/17 22:11 Dose: Not Given Vancomycin/Sodium Chloride (Vancomycin 1 Gm/Ns 200 Ml) 1 gm in 200 mls @ 133 mls/hr IVPB TTS [facility] PRN Reason: Protocol Stop: 10/01/17 11:31 Last Admin: 09/24/17 15:36 Dose: 133 mls/hr Insulin Glargine (Lantus) 15 unit SC HS [facility] Last Admin: 09/25/17 22:11 Dose: Not Given Insulin Human Regular (Novolin R) 0 unit SC ACHS [facility] PRN Reason: Protocol Last Admin: 09/26/17 07:36 Dose: Not Given Nystatin (Nystatin Oral Susp) 5 ml PO Q6 [facility] Last Admin: 09/26/17 05:14 Dose: Not Given Oxycodone/Acetaminophen (Percocet 5/325 Mg Tab) 1 tab PO Q4H PRN PRN Reason: Pain, severe (8-10) Stop: 09/28/17 09:04 Last Admin: 09/26/17 06:07 Dose: 1 tab Rosuvastatin Calcium (Crestor) 10 mg PO [facility] Last Admin: 09/25/17 22:10 Dose: Not Given Vitamin B Complex/Vit C/Folic Acid (Nephro-Cony) 1 tab PO DAILY [facility] Last Admin: 09/25/17 09:57 Dose: 1 tab - Labs Labs: 09/24/17 14:18 09/24/17 14:18 PT 14.9 SECONDS (9.7-12.2) H 09/18/17 03:42 INR 1.3 09/18/17 03:42 APTT 35 SECONDS (21-34) H 09/18/17 03:42 - Constitutional Appears: Non-toxic, No Acute Distress, Chronically Ill - Head Exam Head Exam: NORMAL INSPECTION, NORMOCEPHALIC - Eye Exam Eye Exam: EOMI, Normal appearance - ENT Exam ENT Exam: Mucous Membranes Moist, Normal Exam - Neck Exam Neck Exam: Normal Inspection - Respiratory Exam Respiratory Exam: Clear to Ausculation Bilateral, NORMAL BREATHING PATTERN - Cardiovascular Exam Cardiovascular Exam: REGULAR RHYTHM, RRR - GI/Abdominal Exam GI & Abdominal Exam: Distended, Soft - Extremities Exam Extremities Exam: Normal Inspection (b/l amputee) - Neurological Exam Neurological Exam: Alert, Awake, Oriented x3 - Psychiatric Exam Psychiatric exam: Normal Affect, Normal Mood - Skin Skin Exam: Dry, Intact Assessment and Plan (1) End stage renal disease Status: Acute (2) Hypotension Status: Acute (3) PVD (peripheral vascular disease) Status: Acute (4) S/P BKA (below knee amputation) bilateral Status: Acute (5) Colostomy complication, unspecified Status: Acute - Assessment and Plan (Free Text) Assessment: maintain hd tts anabela w/ hd, poor responder pt/ot
[2017-09-26] MEDS: Clotrimazole/Betamethasone Cream(15 gm) TOP SCH ×2 (09:22→17:54)
[2017-09-26] MEDS: Multivitamin Vitamin B Complex (Nephro-Vite) Tab PO SCH (10:00)
[2017-09-26 10:25] LABS: HEMOGLOBIN 7.6 g/dL (11.0-16.0); MEAN CELL VOLUME 97.8 fL (81.0-99.0); MEAN CORPUSCULAR HEMOGLOBIN 32.3 pg (27.0-31.0); MEAN PLATELET VOLUME 8.1 fL (7.2-11.7); RBC 2.36 Mil/uL (3.80-5.20); RED CELL DISTRIBUTION WIDTH 14.7 % (11.5-14.5); WHITE BLOOD COUNT 15.7 K/uL (4.8-10.8)
[2017-09-26 11:08] LABS: CALCIUM 9.1 mg/dl (8.6-10.4)
[2017-09-26] MEDS: Vancomycin 1 gm/NS 200 ml 1 GM/200 ML BAG IVPB SCH (11:55)
[2017-09-26] MEDS: Epoetin Alfa 10,000 unit/ml Dialysis IV SCH (12:02)
[2017-09-26 12:25] LABS: HEPATITIS B CORE AB NEGATIVE (NEGATIVE); HEPATITIS B SURFACE AG Negative (NEGATIVE); HEPATITIS C ANTIBODY NEGATIVE (NEGATIVE)
--- NOTE | 2017-09-26 14:00 | CP.PCM.PN ---
Subjective - Date & Time of Evaluation Date of Evaluation: 09/26/17 Time of Evaluation: 14:00 - Subjective Subjective: AFEBRILE, STILL C/O PAIN RT INDEX FINGER. NAIL COMING OFF! AND LOOSE PT " UNHAPPY ABOUT LOOSING HER NAIL " PT NOW SOAKING HER FINGER Objective - Vital Signs/Intake and Output Vital Signs (last 24 hours): Temp Pulse Resp BP Pulse Ox 98 F 89 18 185/80 H 98 09/26/17 12:45 09/26/17 12:45 09/26/17 12:45 09/26/17 12:45 09/26/17 12:45 Intake and Output: 09/26/17 09/26/17 06:59 18:59 Intake Total 440 Balance 440 - Medications Medications: Current Medications Acetaminophen (Tylenol 325mg Tab) 650 mg PO Q6 PRN PRN Reason: Pain, moderate (4-7) Last Admin: 09/19/17 20:15 Dose: 650 mg Amlodipine Besylate (Norvasc) 10 mg PO DAILY [facility] Last Admin: 09/26/17 09:03 Dose: Not Given Aspirin (Ecotrin) 81 mg PO DAILY [facility] Last Admin: 09/26/17 09:21 Dose: 81 mg Benzocaine/Menthol (Cepacol Sore Throat) 1 poppy MT Q2H PRN PRN Reason: Sore Throat Last Admin: 09/21/17 10:32 Dose: 1 poppy Betamethasone/Clotrimazole (Lotrisone) 0 gm TOP BID [facility] Last Admin: 09/26/17 09:22 Dose: Not Given Calcium Acetate (Phoslo) 667 mg PO TIDCC [facility] Last Admin: 09/26/17 08:10 Dose: 667 mg Carvedilol (Coreg) 6.25 mg PO BID [facility] Last Admin: 09/26/17 09:03 Dose: Not Given Dextrose (Dextrose 50% Inj) 25 ml IV Q4H PRN PRN Reason: Hypoglycemia Last Admin: 09/18/17 00:23 Dose: 25 ml Epoetin Alec (Procrit) 10,000 unit IV TTS [facility] Stop: 10/01/17 10:01 Last Admin: 09/26/17 12:02 Dose: 10,000 unit Famotidine (Pepcid) 20 mg PO DAILY [facility] Last Admin: 09/26/17 09:21 Dose: 20 mg Gabapentin (Neurontin) 200 mg PO Q12 [facility] Last Admin: 09/26/17 09:02 Dose: Not Given Heparin Sodium (Porcine) (Heparin) 5,000 units SC Q12 [facility] Last Admin: 09/26/17 09:02 Dose: Not Given Vancomycin/Sodium Chloride (Vancomycin 1 Gm/Ns 200 Ml) 1 gm in 200 mls @ 133 mls/hr IVPB TTS [facility] PRN Reason: Protocol Stop: 10/01/17 11:31 Last Admin: 09/26/17 11:55 Dose: 133 mls/hr Insulin Glargine (Lantus) 15 unit SC HS [facility] Last Admin: 09/25/17 22:11 Dose: Not Given Insulin Human Regular (Novolin R) 0 unit SC ACHS [facility] PRN Reason: Protocol Last Admin: 09/26/17 12:20 Dose: Not Given Nystatin (Nystatin Oral Susp) 5 ml PO Q6 [facility] Last Admin: 09/26/17 05:14 Dose: Not Given Oxycodone/Acetaminophen (Percocet 5/325 Mg Tab) 1 tab PO Q4H PRN PRN Reason: Pain, severe (8-10) Stop: 09/28/17 09:04 Last Admin: 09/26/17 12:10 Dose: 1 tab Rosuvastatin Calcium (Crestor) 10 mg PO [facility] Last Admin: 09/25/17 22:10 Dose: Not Given Vitamin B Complex/Vit C/Folic Acid (Nephro-Cony) 1 tab PO DAILY [facility] Last Admin: 09/26/17 10:00 Dose: Not Given - Labs Labs: 09/26/17 10:19 09/26/17 10:19 PT 14.9 SECONDS (9.7-12.2) H 09/18/17 03:42 INR 1.3 09/18/17 03:42 APTT 35 SECONDS (21-34) H 09/18/17 03:42 - Constitutional Appears: No Acute Distress - Head Exam Head Exam: NORMAL INSPECTION - Eye Exam Eye Exam: EOMI, PERRL - ENT Exam ENT Exam: Normal Oropharynx - Neck Exam Neck Exam: Normal Inspection - Respiratory Exam Respiratory Exam: Clear to Ausculation Bilateral - Cardiovascular Exam Cardiovascular Exam: REGULAR RHYTHM, +S1, +S2 - GI/Abdominal Exam GI & Abdominal Exam: Soft, Normal Bowel Sounds (WOUND HEALING.). absent: Tenderness - Extremities Exam Additional comments: B/L AKA - Neurological Exam Neurological Exam: Awake, CN II-XII Intact, Oriented x3 - Psychiatric Exam Psychiatric exam: Normal Mood - Skin Skin Exam: Normal Color, Warm Assessment and Plan (1) Abscess of finger of right hand Assessment & Plan: CPM IV VANCOMYCI POST HD TTS X 6 DOSES TOTAL OFF PO CLEOCIN. Status: Acute (2) ESRD (end stage renal disease) Status: Acute (3) PVD (peripheral vascular disease) Status: Acute (4) S/P BKA (below knee amputation) bilateral Status: Acute (5) Diabetes mellitus Status: Acute (6) HTN (hypertension) Status: Acute (7) History of colostomy reversal Assessment & Plan: WOUND HEALING . Status: Acute
[2017-09-26] MEDS: (Lantus) Insulin Glargine, Recombinant SC SCH (21:58)
[2017-09-27] MEDS: Nystatin 100,000 Units/ml Oral Susp 5 ml UD PO SCH ×4 (00:05→17:39)
[2017-09-27] MEDS: Oxycodone/Acetaminophen 5/325 mg Tab PO PRN ×4 (00:42→23:42)
[2017-09-27] MEDS: Benzocaine/Menthol (Cepacol) Lozenge MT PRN (04:37)
[2017-09-27] MEDS: (Novolin R) Insulin Human Regular 100 units/ml vial SC SCH ×4 (08:10→22:24)
[2017-09-27] MEDS: Multivitamin Vitamin B Complex (Nephro-Vite) Tab PO SCH (09:46)
[2017-09-27] MEDS: Clotrimazole/Betamethasone Cream(15 gm) TOP SCH ×2 (09:53→17:40)
--- NOTE | 2017-09-27 10:09 | CP.PCM.PN ---
Subjective - Date & Time of Evaluation Date of Evaluation: 09/27/17 Time of Evaluation: 10:06 - Subjective Subjective: Patient states finger is feeling better. No new complaints. No drainage. Review of Systems - Review of Systems All systems: reviewed and no additional remarkable complaints except - Constitutional Additional comments: no fever/chills - Cardiovascular Cardiovascular: UNREMARKABLE - Respiratory Respiratory: UNREMARKABLE - Gastrointestinal Gastrointestinal: UNREMARKABLE - Musculoskeletal Musculoskeletal: As Par HPI - Integumentary Integumentary: As Per HPI - Neurological Neurological: UNREMARKABLE - Hematologic/Lymphatic Hematologic: UNREMARKABLE Objective - Vital Signs/Intake and Output Vital Signs (last 24 hours): Temp Pulse Resp BP Pulse Ox 98.1 F 85 18 159/74 H 95 09/27/17 07:22 09/27/17 07:22 09/27/17 07:22 09/27/17 07:22 09/27/17 07:22 Intake and Output: 09/27/17 09/27/17 06:59 18:59 Intake Total 80 Balance 80 - Medications Medications: Current Medications Acetaminophen (Tylenol 325mg Tab) 650 mg PO Q6 PRN PRN Reason: Pain, moderate (4-7) Last Admin: 09/19/17 20:15 Dose: 650 mg Amlodipine Besylate (Norvasc) 10 mg PO DAILY [facility] Last Admin: 09/27/17 09:46 Dose: 10 mg Aspirin (Ecotrin) 81 mg PO DAILY [facility] Last Admin: 09/27/17 09:46 Dose: 81 mg Benzocaine/Menthol (Cepacol Sore Throat) 1 poppy MT Q2H PRN PRN Reason: Sore Throat Last Admin: 09/27/17 04:37 Dose: 1 poppy Betamethasone/Clotrimazole (Lotrisone) 0 gm TOP BID [facility] Last Admin: 09/27/17 09:53 Dose: 1 applic Calcium Acetate (Phoslo) 667 mg PO TIDCC [facility] Last Admin: 09/27/17 08:30 Dose: 667 mg Carvedilol (Coreg) 6.25 mg PO BID [facility] Last Admin: 09/27/17 09:46 Dose: 6.25 mg Dextrose (Dextrose 50% Inj) 25 ml IV Q4H PRN PRN Reason: Hypoglycemia Last Admin: 09/18/17 00:23 Dose: 25 ml Epoetin Alec (Procrit) 10,000 unit IV TTS [facility] Stop: 10/01/17 10:01 Last Admin: 09/26/17 12:02 Dose: 10,000 unit Famotidine (Pepcid) 20 mg PO DAILY [facility] Last Admin: 09/27/17 09:46 Dose: 20 mg Gabapentin (Neurontin) 200 mg PO Q12 [facility] Last Admin: 09/27/17 09:50 Dose: Not Given Heparin Sodium (Porcine) (Heparin) 5,000 units SC Q12 [facility] Last Admin: 09/27/17 09:50 Dose: Not Given Vancomycin/Sodium Chloride (Vancomycin 1 Gm/Ns 200 Ml) 1 gm in 200 mls @ 133 mls/hr IVPB TTS [facility] PRN Reason: Protocol Stop: 10/01/17 11:31 Last Admin: 09/26/17 11:55 Dose: 133 mls/hr Insulin Glargine (Lantus) 15 unit SC HS [facility] Last Admin: 09/26/17 21:58 Dose: 15 u Insulin Human Regular (Novolin R) 0 unit SC ACHS [facility] PRN Reason: Protocol Last Admin: 09/27/17 08:10 Dose: Not Given Nystatin (Nystatin Oral Susp) 5 ml PO Q6 [facility] Last Admin: 09/27/17 05:50 Dose: Not Given Oxycodone/Acetaminophen (Percocet 5/325 Mg Tab) 1 tab PO Q4H PRN PRN Reason: Pain, severe (8-10) Stop: 09/28/17 09:04 Last Admin: 09/27/17 09:47 Dose: 1 tab Rosuvastatin Calcium (Crestor) 10 mg PO [facility] Last Admin: 09/26/17 21:56 Dose: 10 mg Vitamin B Complex/Vit C/Folic Acid (Nephro-Cony) 1 tab PO DAILY [facility] Last Admin: 09/27/17 09:46 Dose: 1 tab - Labs Labs: 09/26/17 10:19 09/26/17 10:19 PT 14.9 SECONDS (9.7-12.2) H 09/18/17 03:42 INR 1.3 09/18/17 03:42 APTT 35 SECONDS (21-34) H 09/18/17 03:42 - Constitutional Appears: Well, No Acute Distress - Head Exam Head Exam: ATRAUMATIC - Neck Exam Neck Exam: Full ROM - Respiratory Exam Respiratory Exam: NORMAL BREATHING PATTERN - Cardiovascular Exam Additional comments: +radial pulse - Extremities Exam Additional comments: wound dry today, not able to express any pus, no active drainage. swelling improving. - Neurological Exam Neurological Exam: Alert, Awake, Oriented x3 Neuro motor strength exam: Left Upper Extremity: 5 - Psychiatric Exam Psychiatric exam: Normal Affect, Normal Mood - Skin Skin Exam: Dry Additional comments: no drainage no fluctuance noted appears intact at this time much less tender Assessment and Plan (1) Abscess of finger of right hand Assessment & Plan: continue soaks TID-QID today improving, dry continue antibiotics per ID will monitor while in house no orthopedic intervention indicated at this time, but possibility of need for surgery in future remains if infection does not resolve or wound does not heal d/w Dr. Luo, agrees with above If patient to be discharged, still needs close f/u Dr. Luo within 1 week Return to ER for any increased pain, swelling, drainage Status: Acute (2) Osteomyelitis of finger of right hand Status: Acute
[2017-09-27] MEDS: (Lantus) Insulin Glargine, Recombinant SC SCH (22:27)
[2017-09-28] MEDS: Oxycodone/Acetaminophen 5/325 mg Tab PO PRN (05:23)
[2017-09-28] MEDS: (Novolin R) Insulin Human Regular 100 units/ml vial SC SCH ×4 (08:00→22:11)
--- NOTE | 2017-09-28 11:26 | CP.PCM.PN ---
Subjective - Date & Time of Evaluation Date of Evaluation: 09/28/17 Time of Evaluation: 11:24 - Subjective Subjective: finger feels better noted bp higher abdomen healing no chest pain no sob no rash no pruritis no fever anuria appetite fair Objective - Vital Signs/Intake and Output Vital Signs (last 24 hours): Temp Pulse Resp BP Pulse Ox 98.4 F 86 20 158/71 H 96 09/28/17 08:00 09/28/17 08:00 09/28/17 08:00 09/28/17 08:00 09/28/17 08:00 - Medications Medications: Current Medications Acetaminophen (Tylenol 325mg Tab) 650 mg PO Q6 PRN PRN Reason: Pain, moderate (4-7) Last Admin: 09/19/17 20:15 Dose: 650 mg Amlodipine Besylate (Norvasc) 10 mg PO DAILY [facility] Last Admin: 09/27/17 09:46 Dose: 10 mg Aspirin (Ecotrin) 81 mg PO DAILY [facility] Last Admin: 09/27/17 09:46 Dose: 81 mg Benzocaine/Menthol (Cepacol Sore Throat) 1 poppy MT Q2H PRN PRN Reason: Sore Throat Last Admin: 09/27/17 04:37 Dose: 1 poppy Betamethasone/Clotrimazole (Lotrisone) 0 gm TOP BID [facility] Last Admin: 09/27/17 17:40 Dose: 1 applic Calcium Acetate (Phoslo) 667 mg PO TIDCC [facility] Last Admin: 09/28/17 08:50 Dose: 667 mg Dextrose (Dextrose 50% Inj) 25 ml IV Q4H PRN PRN Reason: Hypoglycemia Last Admin: 09/18/17 00:23 Dose: 25 ml Epoetin Alec (Procrit) 10,000 unit IV TTS [facility] Stop: 10/01/17 10:01 Last Admin: 09/26/17 12:02 Dose: 10,000 unit Famotidine (Pepcid) 20 mg PO DAILY [facility] Last Admin: 09/27/17 09:46 Dose: 20 mg Gabapentin (Neurontin) 200 mg PO Q12 [facility] Last Admin: 09/27/17 22:28 Dose: Not Given Vancomycin/Sodium Chloride (Vancomycin 1 Gm/Ns 200 Ml) 1 gm in 200 mls @ 133 mls/hr IVPB TTS [facility] PRN Reason: Protocol Stop: 10/01/17 11:31 Last Admin: 09/26/17 11:55 Dose: 133 mls/hr Insulin Glargine (Lantus) 15 unit SC HS [facility] Last Admin: 09/27/17 22:27 Dose: 15 u Insulin Human Regular (Novolin R) 0 unit SC ACHS [facility] PRN Reason: Protocol Last Admin: 09/27/17 22:24 Dose: Not Given Rosuvastatin Calcium (Crestor) 10 mg PO HS [facility] Last Admin: 09/27/17 22:26 Dose: 10 mg Vitamin B Complex/Vit C/Folic Acid (Nephro-Cony) 1 tab PO DAILY [facility] Last Admin: 09/27/17 09:46 Dose: 1 tab - Labs Labs: 09/26/17 10:19 09/26/17 10:19 PT 14.9 SECONDS (9.7-12.2) H 09/18/17 03:42 INR 1.3 09/18/17 03:42 APTT 35 SECONDS (21-34) H 09/18/17 03:42 - Constitutional Appears: In Acute Distress, Chronically Ill - Head Exam Head Exam: ATRAUMATIC, NORMAL INSPECTION - Eye Exam Eye Exam: EOMI - ENT Exam ENT Exam: Mucous Membranes Moist - Neck Exam Neck Exam: Full ROM. absent: Lymphadenopathy - Respiratory Exam Respiratory Exam: Decreased Breath Sounds. absent: Accessory Muscle Use - Cardiovascular Exam Cardiovascular Exam: REGULAR RHYTHM. absent: Rubs - GI/Abdominal Exam GI & Abdominal Exam: Distended, Soft. absent: Tenderness - Extremities Exam Extremities Exam: absent: Pedal Edema Additional comments: right bka Assessment and Plan - Assessment and Plan (Free Text) Assessment: esrd pvd right finger infection hypertension hyperkalemia HD today increase coreg wound care
[2017-09-28] MEDS: Multivitamin Vitamin B Complex (Nephro-Vite) Tab PO SCH (11:59)
[2017-09-28] MEDS: Clotrimazole/Betamethasone Cream(15 gm) TOP SCH ×2 (12:14→18:25)
[2017-09-28] MEDS: Epoetin Alfa 10,000 unit/ml Dialysis IV SCH (13:48)
[2017-09-28] MEDS: Vancomycin 1 gm/NS 200 ml 1 GM/200 ML BAG IVPB SCH (14:20)
[2017-09-28] MEDS: DiphenhydrAMINE 12.5 mg/5 ml LIQ UD (5 ml) PO SCH (22:34)
[2017-09-28] MEDS: (Lantus) Insulin Glargine, Recombinant SC SCH (22:34)
[2017-09-29] MEDS: (Novolin R) Insulin Human Regular 100 units/ml vial SC SCH ×4 (08:24→21:50)
[2017-09-29] MEDS: Clotrimazole/Betamethasone Cream(15 gm) TOP SCH ×3 (09:45→17:32)
[2017-09-29] MEDS: Multivitamin Vitamin B Complex (Nephro-Vite) Tab PO SCH (09:47)
[2017-09-29] MEDS: DiphenhydrAMINE 12.5 mg/5 ml LIQ UD (5 ml) PO SCH (22:06)
[2017-09-29] MEDS: (Lantus) Insulin Glargine, Recombinant SC SCH (22:07)
[2017-09-30] MEDS: (Novolin R) Insulin Human Regular 100 units/ml vial SC SCH ×4 (08:45→21:19)
[2017-09-30] MEDS: Multivitamin Vitamin B Complex (Nephro-Vite) Tab PO SCH (10:10)
[2017-09-30] MEDS: Clotrimazole/Betamethasone Cream(15 gm) TOP SCH (10:11)
--- NOTE | 2017-09-30 11:04 | CP.PCM.PN ---
Subjective - Date & Time of Evaluation Date of Evaluation: 09/30/17 Time of Evaluation: 11:01 - Subjective Subjective: Feels better Eating well HTN still labile- meds adjusted recently Dialysis stable 09/28 Hg still low Finger - right #2 - better, less pain No n, v, f, chills, SOB Objective - Vital Signs/Intake and Output Vital Signs (last 24 hours): Temp Pulse Resp BP Pulse Ox 98.4 F 87 20 177/76 H 95 09/30/17 07:00 09/30/17 10:09 09/30/17 07:00 09/30/17 10:10 09/30/17 07:00 Intake and Output: 09/30/17 09/30/17 06:59 18:59 Intake Total 240 Balance 240 - Medications Medications: Current Medications Acetaminophen (Tylenol 325mg Tab) 650 mg PO Q6 PRN PRN Reason: Pain, moderate (4-7) Last Admin: 09/30/17 02:11 Dose: 650 mg Amlodipine Besylate (Norvasc) 10 mg PO DAILY [facility] Last Admin: 09/30/17 10:10 Dose: 10 mg Aspirin (Ecotrin) 81 mg PO DAILY [facility] Last Admin: 09/30/17 10:10 Dose: 81 mg Benzocaine/Menthol (Cepacol Sore Throat) 1 poppy MT Q2H PRN PRN Reason: Sore Throat Last Admin: 09/27/17 04:37 Dose: 1 poppy Calcium Acetate (Phoslo) 667 mg PO TIDCC [facility] Last Admin: 09/30/17 08:44 Dose: 667 mg Carvedilol (Coreg) 12.5 mg PO BID [facility] Last Admin: 09/30/17 10:10 Dose: 12.5 mg Dextrose (Dextrose 50% Inj) 25 ml IV Q4H PRN PRN Reason: Hypoglycemia Last Admin: 09/18/17 00:23 Dose: 25 ml Diphenhydramine HCl (Benadryl) 25 mg PO HS [facility] Last Admin: 09/29/17 22:06 Dose: 25 mg Epoetin Alec (Procrit) 10,000 unit IV TTS [facility] Stop: 10/01/17 10:01 Last Admin: 09/28/17 13:48 Dose: 10,000 unit Famotidine (Pepcid) 20 mg PO DAILY [facility] Last Admin: 09/30/17 10:10 Dose: 20 mg Vancomycin/Sodium Chloride (Vancomycin 1 Gm/Ns 200 Ml) 1 gm in 200 mls @ 133 mls/hr IVPB TTS [facility] PRN Reason: Protocol Stop: 10/01/17 11:31 Last Admin: 09/28/17 14:20 Dose: 133 mls/hr Insulin Glargine (Lantus) 15 unit SC HS [facility] Last Admin: 09/29/17 22:07 Dose: 15 u Insulin Human Regular (Novolin R) 0 unit SC ACHS [facility] PRN Reason: Protocol Last Admin: 09/30/17 08:45 Dose: Not Given Rosuvastatin Calcium (Crestor) 10 mg PO HS [facility] Last Admin: 09/29/17 22:07 Dose: 10 mg Vitamin B Complex/Vit C/Folic Acid (Nephro-Cony) 1 tab PO DAILY [facility] Last Admin: 09/30/17 10:10 Dose: 1 tab - Labs Labs: 09/26/17 10:19 09/26/17 10:19 PT 14.9 SECONDS (9.7-12.2) H 09/18/17 03:42 INR 1.3 09/18/17 03:42 APTT 35 SECONDS (21-34) H 09/18/17 03:42 - Constitutional Appears: No Acute Distress, Chronically Ill - Head Exam Head Exam: ATRAUMATIC, NORMAL INSPECTION - Eye Exam Eye Exam: EOMI. absent: Normal appearance - Neck Exam Neck Exam: Normal Inspection. absent: Tenderness - Respiratory Exam Respiratory Exam: Clear to Ausculation Bilateral, NORMAL BREATHING PATTERN - Cardiovascular Exam Cardiovascular Exam: REGULAR RHYTHM, +S1 - GI/Abdominal Exam GI & Abdominal Exam: Soft. absent: Tenderness - Extremities Exam Extremities Exam: Calf Tenderness, Tenderness. absent: Pedal Edema - Neurological Exam Neurological Exam: Alert, CN II-XII Intact - Skin Skin Exam: Dry, Warm Assessment and Plan (1) PVD (peripheral vascular disease) Status: Acute (2) S/P BKA (below knee amputation) bilateral Status: Acute (3) ESRD (end stage renal disease) Status: Acute (4) Type 2 diabetes mellitus with diabetic nephropathy Status: Acute - Assessment and Plan (Free Text) Plan: Repeat dialysis 10/01 Monior HTN Check iron stores, continue ESAs monitor finger wound
--- NOTE | 2017-09-30 12:26 | CP.PCM.PN ---
Subjective - Date & Time of Evaluation Date of Evaluation: 09/30/17 Time of Evaluation: 12:26 - Subjective Subjective: AFEBRILE, STILL C/O PAIN RT INDEX FINGER. NAIL COMING OFF! AND LOOSE. PT CONTINUES TO SOAK HER FINGER Objective - Vital Signs/Intake and Output Vital Signs (last 24 hours): Temp Pulse Resp BP Pulse Ox 98.4 F 87 20 177/76 H 95 09/30/17 07:00 09/30/17 10:09 09/30/17 07:00 09/30/17 10:10 09/30/17 07:00 Intake and Output: 09/30/17 09/30/17 06:59 18:59 Intake Total 240 Balance 240 - Medications Medications: Current Medications Acetaminophen (Tylenol 325mg Tab) 650 mg PO Q6 PRN PRN Reason: Pain, moderate (4-7) Last Admin: 09/30/17 02:11 Dose: 650 mg Amlodipine Besylate (Norvasc) 10 mg PO DAILY [facility] Last Admin: 09/30/17 10:10 Dose: 10 mg Aspirin (Ecotrin) 81 mg PO DAILY [facility] Last Admin: 09/30/17 10:10 Dose: 81 mg Benzocaine/Menthol (Cepacol Sore Throat) 1 poppy MT Q2H PRN PRN Reason: Sore Throat Last Admin: 09/27/17 04:37 Dose: 1 poppy Calcium Acetate (Phoslo) 667 mg PO TIDCC [facility] Last Admin: 09/30/17 08:44 Dose: 667 mg Carvedilol (Coreg) 12.5 mg PO BID [facility] Last Admin: 09/30/17 10:10 Dose: 12.5 mg Dextrose (Dextrose 50% Inj) 25 ml IV Q4H PRN PRN Reason: Hypoglycemia Last Admin: 09/18/17 00:23 Dose: 25 ml Diphenhydramine HCl (Benadryl) 25 mg PO HS [facility] Last Admin: 09/29/17 22:06 Dose: 25 mg Epoetin Alec (Procrit) 10,000 unit IV TTS [facility] Stop: 10/01/17 10:01 Last Admin: 09/28/17 13:48 Dose: 10,000 unit Famotidine (Pepcid) 20 mg PO DAILY [facility] Last Admin: 09/30/17 10:10 Dose: 20 mg Vancomycin/Sodium Chloride (Vancomycin 1 Gm/Ns 200 Ml) 1 gm in 200 mls @ 133 mls/hr IVPB TTS [facility] PRN Reason: Protocol Stop: 10/01/17 11:31 Last Admin: 09/28/17 14:20 Dose: 133 mls/hr Insulin Glargine (Lantus) 15 unit SC HS [facility] Last Admin: 09/29/17 22:07 Dose: 15 u Insulin Human Regular (Novolin R) 0 unit SC [facility] PRN Reason: Protocol Last Admin: 09/30/17 12:11 Dose: Not Given Rosuvastatin Calcium (Crestor) 10 mg PO HS [facility] Last Admin: 09/29/17 22:07 Dose: 10 mg Vitamin B Complex/Vit C/Folic Acid (Nephro-Cony) 1 tab PO DAILY [facility] Last Admin: 09/30/17 10:10 Dose: 1 tab - Labs Labs: 09/26/17 10:19 09/26/17 10:19 PT 14.9 SECONDS (9.7-12.2) H 09/18/17 03:42 INR 1.3 09/18/17 03:42 APTT 35 SECONDS (21-34) H 09/18/17 03:42 - Constitutional Appears: No Acute Distress - Head Exam Head Exam: NORMAL INSPECTION - Eye Exam Eye Exam: EOMI, PERRL - ENT Exam ENT Exam: Normal Oropharynx - Neck Exam Neck Exam: Normal Inspection - Respiratory Exam Respiratory Exam: Clear to Ausculation Bilateral, NORMAL BREATHING PATTERN - Cardiovascular Exam Cardiovascular Exam: REGULAR RHYTHM, +S1, +S2 - GI/Abdominal Exam GI & Abdominal Exam: Soft, Normal Bowel Sounds. absent: Tenderness - Extremities Exam Extremities Exam: absent: Full ROM (PT B/L AKA , WHEELCHAIR BOUND.) Additional comments: RT. INDEX FINGER IN DRESSING,NAIL IS LOOSE - Neurological Exam Neurological Exam: Awake, Oriented x3 - Psychiatric Exam Psychiatric exam: Anxious - Skin Skin Exam: Warm Assessment and Plan (1) Abscess of finger of right hand Assessment & Plan: IV VANCOMYCIN 1GM IVPB POST HD TTS X 9 DOSES TOTAL CASE DISCUSSED WITH HOSPICE COMMUNITY LIAISON. MS UNDERWOOD. Status: Acute (2) ESRD (end stage renal disease) Status: Acute (3) PVD (peripheral vascular disease) Status: Acute (4) S/P BKA (below knee amputation) bilateral Status: Acute (5) Diabetes mellitus Status: Acute (6) HTN (hypertension) Status: Acute (7) History of colostomy reversal Status: Acute
--- NOTE | 2017-09-30 16:02 | CP.PCM.PN ---
Subjective - Date & Time of Evaluation Date of Evaluation: 09/30/17 Time of Evaluation: 15:59 - Subjective Subjective: Patient states nail fell off over the weekend. She is complaining of pain in her finger still. She denies any new complaints. Review of Systems - Review of Systems All systems: reviewed and no additional remarkable complaints except - Constitutional Additional comments: no fever/chills - Cardiovascular Cardiovascular: UNREMARKABLE - Respiratory Respiratory: UNREMARKABLE - Gastrointestinal Gastrointestinal: UNREMARKABLE - Musculoskeletal Musculoskeletal: As Par HPI - Integumentary Integumentary: As Per HPI - Neurological Neurological: UNREMARKABLE - Hematologic/Lymphatic Hematologic: UNREMARKABLE Objective - Vital Signs/Intake and Output Vital Signs (last 24 hours): Temp Pulse Resp BP Pulse Ox 98.2 F 91 H 20 147/70 98 09/30/17 15:00 09/30/17 15:00 09/30/17 15:00 09/30/17 15:00 09/30/17 15:00 Intake and Output: 09/30/17 09/30/17 06:59 18:59 Intake Total 240 Balance 240 - Medications Medications: Current Medications Acetaminophen (Tylenol 325mg Tab) 650 mg PO Q6 PRN PRN Reason: Pain, moderate (4-7) Last Admin: 09/30/17 12:36 Dose: 650 mg Amlodipine Besylate (Norvasc) 10 mg PO DAILY [facility] Last Admin: 09/30/17 10:10 Dose: 10 mg Aspirin (Ecotrin) 81 mg PO DAILY [facility] Last Admin: 09/30/17 10:10 Dose: 81 mg Benzocaine/Menthol (Cepacol Sore Throat) 1 poppy MT Q2H PRN PRN Reason: Sore Throat Last Admin: 09/27/17 04:37 Dose: 1 poppy Calcium Acetate (Phoslo) 667 mg PO TIDCC [facility] Last Admin: 09/30/17 12:32 Dose: 667 mg Carvedilol (Coreg) 12.5 mg PO BID [facility] Last Admin: 09/30/17 10:10 Dose: 12.5 mg Dextrose (Dextrose 50% Inj) 25 ml IV Q4H PRN PRN Reason: Hypoglycemia Last Admin: 09/18/17 00:23 Dose: 25 ml Diphenhydramine HCl (Benadryl) 25 mg PO HS [facility] Last Admin: 09/29/17 22:06 Dose: 25 mg Epoetin Alec (Procrit) 10,000 unit IV TTS [facility] Stop: 10/01/17 10:01 Last Admin: 09/28/17 13:48 Dose: 10,000 unit Famotidine (Pepcid) 20 mg PO DAILY [facility] Last Admin: 09/30/17 10:10 Dose: 20 mg Vancomycin/Sodium Chloride (Vancomycin 1 Gm/Ns 200 Ml) 1 gm in 200 mls @ 133 mls/hr IVPB TTS [facility] PRN Reason: Protocol Stop: 10/01/17 11:31 Last Admin: 09/28/17 14:20 Dose: 133 mls/hr Insulin Glargine (Lantus) 15 unit SC HS [facility] Last Admin: 09/29/17 22:07 Dose: 15 u Insulin Human Regular (Novolin R) 0 unit SC [facility] PRN Reason: Protocol Last Admin: 09/30/17 12:11 Dose: Not Given Rosuvastatin Calcium (Crestor) 10 mg PO HS [facility] Last Admin: 09/29/17 22:07 Dose: 10 mg Vitamin B Complex/Vit C/Folic Acid (Nephro-Cony) 1 tab PO DAILY [facility] Last Admin: 09/30/17 10:10 Dose: 1 tab - Labs Labs: 09/26/17 10:19 09/26/17 10:19 PT 14.9 SECONDS (9.7-12.2) H 09/18/17 03:42 INR 1.3 09/18/17 03:42 APTT 35 SECONDS (21-34) H 09/18/17 03:42 - Constitutional Appears: Well, No Acute Distress - Head Exam Head Exam: ATRAUMATIC - Neck Exam Neck Exam: Full ROM - Respiratory Exam Respiratory Exam: NORMAL BREATHING PATTERN - Cardiovascular Exam Additional comments: +radial pulse - Extremities Exam Additional comments: nail no longer in place right index finger. ?nail growing out of nail fold. Distal phalanx and tuft now visible, 3-4mm distal to skin. still noted eschar to tip of finger. Dry, no active bleeding. - Neurological Exam Neurological Exam: Alert, Awake, Oriented x3 Neuro motor strength exam: Left Upper Extremity: 5 - Psychiatric Exam Psychiatric exam: Normal Affect, Normal Mood Additional comments: becomes tearful after discussion - Skin Skin Exam: Dry, Intact, Normal Color, Warm Assessment and Plan (1) Abscess of finger of right hand Assessment & Plan: bone now exposed risks/benefits/alt explained to patient, advised patient that with this much bone exposed and no soft tissue or skin coverage, that her finger will not heal and that partial amputation of finger is indicated patient requests second opinion, d/w Dr. Lord Plan for OR 9am 10/03 pending patient consent d/w Dr. Luo, agrees with above Status: Acute (2) Osteomyelitis of finger of right hand Status: Acute
[2017-09-30] MEDS: DiphenhydrAMINE 12.5 mg/5 ml LIQ UD (5 ml) PO SCH (21:15)
[2017-09-30] MEDS: (Lantus) Insulin Glargine, Recombinant SC SCH (21:19)
[2017-09-30] MEDS ORDERED: oxyCODONE 5 mg Immediate Release Tab PO ONE (22:15)
--- NOTE | 2017-09-30 23:27 | CP.PCM.PN ---
Subjective - Date & Time of Evaluation Date of Evaluation: 09/30/17 Time of Evaluation: 23:27 - Subjective Subjective: Patient is currently having no new symptoms. During the weekend the nail came out. Discussed with the hand specialist. For possible surgical intervention. Discussed with the patient. Continue the current treatment. Objective - Vital Signs/Intake and Output Vital Signs (last 24 hours): Temp Pulse Resp BP Pulse Ox 98.2 F 91 H 20 148/74 98 09/30/17 15:00 09/30/17 15:00 09/30/17 15:00 09/30/17 17:33 09/30/17 15:00 Intake and Output: 09/30/17 10/01/17 18:59 06:59 Intake Total 320 Balance 320 - Medications Medications: Current Medications Acetaminophen (Tylenol 325mg Tab) 650 mg PO Q6 PRN PRN Reason: Pain, moderate (4-7) Last Admin: 09/30/17 12:36 Dose: 650 mg Amlodipine Besylate (Norvasc) 10 mg PO DAILY [facility] Last Admin: 09/30/17 10:10 Dose: 10 mg Aspirin (Ecotrin) 81 mg PO DAILY [facility] Last Admin: 09/30/17 10:10 Dose: 81 mg Benzocaine/Menthol (Cepacol Sore Throat) 1 poppy MT Q2H PRN PRN Reason: Sore Throat Last Admin: 09/27/17 04:37 Dose: 1 poppy Calcium Acetate (Phoslo) 667 mg PO TIDCC [facility] Last Admin: 09/30/17 17:33 Dose: 667 mg Carvedilol (Coreg) 12.5 mg PO BID [facility] Last Admin: 09/30/17 17:33 Dose: 12.5 mg Dextrose (Dextrose 50% Inj) 25 ml IV Q4H PRN PRN Reason: Hypoglycemia Last Admin: 09/18/17 00:23 Dose: 25 ml Diphenhydramine HCl (Benadryl) 25 mg PO HS [facility] Last Admin: 09/30/17 21:15 Dose: 25 mg Epoetin Alec (Procrit) 10,000 unit IV TTS [facility] Stop: 10/01/17 10:01 Last Admin: 09/28/17 13:48 Dose: 10,000 unit Famotidine (Pepcid) 20 mg PO DAILY [facility] Last Admin: 09/30/17 10:10 Dose: 20 mg Vancomycin/Sodium Chloride (Vancomycin 1 Gm/Ns 200 Ml) 1 gm in 200 mls @ 133 mls/hr IVPB TTS [facility] PRN Reason: Protocol Stop: 10/01/17 11:31 Last Admin: 09/28/17 14:20 Dose: 133 mls/hr Insulin Glargine (Lantus) 15 unit SC HS [facility] Last Admin: 09/30/17 21:19 Dose: Not Given Insulin Human Regular (Novolin R) 0 unit SC [facility] PRN Reason: Protocol Last Admin: 09/30/17 21:19 Dose: Not Given Rosuvastatin Calcium (Crestor) 10 mg PO HS [facility] Last Admin: 09/30/17 21:14 Dose: 10 mg Vitamin B Complex/Vit C/Folic Acid (Nephro-Cony) 1 tab PO DAILY [facility] Last Admin: 09/30/17 10:10 Dose: 1 tab - Labs Labs: 09/26/17 10:19 09/26/17 10:19 PT 14.9 SECONDS (9.7-12.2) H 09/18/17 03:42 INR 1.3 09/18/17 03:42 APTT 35 SECONDS (21-34) H 09/18/17 03:42
[2017-10-01] MEDS: (Novolin R) Insulin Human Regular 100 units/ml vial SC SCH ×4 (08:09→21:47)
[2017-10-01 09:43] LABS: MEAN CELL VOLUME 97.5 fL (81.0-99.0); MEAN CORPUSCULAR HEMOGLOBIN 32.5 pg (27.0-31.0); MEAN CORPUSCULAR HGB CONC 33.3 g/dL (33.0-37.0); MEAN PLATELET VOLUME 8.1 fL (7.2-11.7); RBC 1.94 Mil/uL (3.80-5.20); RED CELL DISTRIBUTION WIDTH 14.9 % (11.5-14.5); WHITE BLOOD COUNT 14.1 K/uL (4.8-10.8)
[2017-10-01 09:49] LABS: HEMOGLOBIN 6.3 g/dL (11.0-16.0)
[2017-10-01 10:10] LABS: ALB/GLOB RATIO 0.8 (1.0-2.1); CALCIUM 9.1 mg/dl (8.6-10.4)
[2017-10-01] MEDS ORDERED: Epoetin Alfa 10,000 unit/ml Dialysis IV ONE ×2 (10:48→12:15)
--- NOTE | 2017-10-01 10:51 | CP.PCM.PN ---
Subjective - Date & Time of Evaluation Date of Evaluation: 10/01/17 Time of Evaluation: 10:49 - Subjective Subjective: seen and examined in hd hgb 6.3 mg/dl noted pt upset about blood transfusion, eventually agreeable denies any cp/sob/dizziness/n/v/d/f/c/headache/numbness/weakness had bowel movement tolerating diet Objective - Vital Signs/Intake and Output Vital Signs (last 24 hours): Temp Pulse Resp BP Pulse Ox 98.7 F 92 H 20 150/73 95 10/01/17 07:00 10/01/17 07:00 10/01/17 07:00 10/01/17 07:00 10/01/17 07:00 Intake and Output: 10/01/17 10/01/17 06:59 18:59 Intake Total 440 Balance 440 - Medications Medications: Current Medications Acetaminophen (Tylenol 325mg Tab) 650 mg PO Q6 PRN PRN Reason: Pain, moderate (4-7) Last Admin: 09/30/17 12:36 Dose: 650 mg Amlodipine Besylate (Norvasc) 10 mg PO DAILY [facility] Last Admin: 09/30/17 10:10 Dose: 10 mg Aspirin (Ecotrin) 81 mg PO DAILY [facility] Last Admin: 09/30/17 10:10 Dose: 81 mg Benzocaine/Menthol (Cepacol Sore Throat) 1 poppy MT Q2H PRN PRN Reason: Sore Throat Last Admin: 09/27/17 04:37 Dose: 1 poppy Calcium Acetate (Phoslo) 667 mg PO TIDCC [facility] Last Admin: 10/01/17 08:25 Dose: 667 mg Carvedilol (Coreg) 12.5 mg PO BID [facility] Last Admin: 09/30/17 17:33 Dose: 12.5 mg Dextrose (Dextrose 50% Inj) 25 ml IV Q4H PRN PRN Reason: Hypoglycemia Last Admin: 09/18/17 00:23 Dose: 25 ml Diphenhydramine HCl (Benadryl) 25 mg PO HS [facility] Last Admin: 09/30/17 21:15 Dose: 25 mg Famotidine (Pepcid) 20 mg PO DAILY [facility] Last Admin: 09/30/17 10:10 Dose: 20 mg Vancomycin/Sodium Chloride (Vancomycin 1 Gm/Ns 200 Ml) 1 gm in 200 mls @ 133 mls/hr IVPB TTS [facility] PRN Reason: Protocol Stop: 10/01/17 11:31 Last Admin: 09/28/17 14:20 Dose: 133 mls/hr Insulin Glargine (Lantus) 15 unit SC [facility] Last Admin: 09/30/17 21:19 Dose: Not Given Insulin Human Regular (Novolin R) 0 unit SC [facility] PRN Reason: Protocol Last Admin: 10/01/17 08:09 Dose: Not Given Rosuvastatin Calcium (Crestor) 10 mg PO HS [facility] Last Admin: 09/30/17 21:14 Dose: 10 mg Vitamin B Complex/Vit C/Folic Acid (Nephro-Cony) 1 tab PO DAILY [facility] Last Admin: 09/30/17 10:10 Dose: 1 tab - Labs Labs: 10/01/17 09:36 10/01/17 09:36 PT 14.9 SECONDS (9.7-12.2) H 09/18/17 03:42 INR 1.3 09/18/17 03:42 APTT 35 SECONDS (21-34) H 09/18/17 03:42 - Constitutional Appears: No Acute Distress, Older Than Stated Age, Chronically Ill - Head Exam Head Exam: NORMAL INSPECTION, NORMOCEPHALIC - Eye Exam Eye Exam: Normal appearance, PERRL - ENT Exam ENT Exam: Mucous Membranes Moist, Normal Exam - Neck Exam Neck Exam: Full ROM, Normal Inspection - Respiratory Exam Respiratory Exam: Clear to Ausculation Bilateral, NORMAL BREATHING PATTERN - Cardiovascular Exam Cardiovascular Exam: REGULAR RHYTHM, RRR - GI/Abdominal Exam GI & Abdominal Exam: Distended, Soft - Extremities Exam Extremities Exam: Normal Inspection (b/l amputee. ) - Neurological Exam Neurological Exam: Alert, Awake, Oriented x3 - Psychiatric Exam Psychiatric exam: Agitated - Skin Skin Exam: Intact, Warm Assessment and Plan (1) End stage renal disease Status: Acute (2) Hypotension Status: Acute (3) PVD (peripheral vascular disease) Status: Acute (4) S/P BKA (below knee amputation) bilateral Status: Acute (5) Colostomy complication, unspecified Status: Acute - Assessment and Plan (Free Text) Assessment: maintain hd tts anabela w/ hd transfuse one unit of blood w/ hd today.
[2017-10-01] MEDS ORDERED: Epoetin Alfa 10,000 unit/ml Dialysis IV SCH (12:00)
[2017-10-01] MEDS: Epoetin Alfa 10,000 unit/ml Dialysis IV SCH (13:00)
[2017-10-01] MEDS: Epoetin Alfa Dialysis 3000 UNIT/ML Inj IV SCH (13:00)
[2017-10-01] MEDS ORDERED: Epoetin Alfa Dialysis 3000 UNIT/ML Inj IV SCH (13:00)
[2017-10-01] MEDS: Epoetin Alfa Dialysis 2000 U/ML Inj IV SCH (13:01)
[2017-10-01] MEDS: Multivitamin Vitamin B Complex (Nephro-Vite) Tab PO SCH (13:40)
[2017-10-01] MEDS: Vancomycin 1 gm/NS 200 ml 1 GM/200 ML BAG IVPB SCH (13:48)
--- NOTE | 2017-10-01 13:50 | CP.PCM.PN ---
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 Objective - Vital Signs/Intake and Output Vital Signs (last 24 hours): Temp Pulse Resp BP Pulse Ox 98.8 F 96 H 20 164/76 H 95 10/01/17 13:20 10/01/17 13:20 10/01/17 13:20 10/01/17 13:40 10/01/17 13:20 Intake and Output: 10/01/17 10/01/17 06:59 18:59 Intake Total 440 325 Balance 440 325 - Medications Medications: Current Medications Acetaminophen (Tylenol 325mg Tab) 650 mg PO Q6 PRN PRN Reason: Pain, moderate (4-7) Last Admin: 09/30/17 12:36 Dose: 650 mg Amlodipine Besylate (Norvasc) 10 mg PO DAILY [facility] Last Admin: 10/01/17 13:40 Dose: 10 mg Aspirin (Ecotrin) 81 mg PO DAILY [facility] Last Admin: 10/01/17 13:41 Dose: 81 mg Benzocaine/Menthol (Cepacol Sore Throat) 1 poppy MT Q2H PRN PRN Reason: Sore Throat Last Admin: 09/27/17 04:37 Dose: 1 poppy Calcium Acetate (Phoslo) 667 mg PO TIDCC [facility] Last Admin: 10/01/17 13:42 Dose: 667 mg Carvedilol (Coreg) 12.5 mg PO BID [facility] Last Admin: 10/01/17 13:40 Dose: 12.5 mg Dextrose (Dextrose 50% Inj) 25 ml IV Q4H PRN PRN Reason: Hypoglycemia Last Admin: 09/18/17 00:23 Dose: 25 ml Diphenhydramine HCl (Benadryl) 25 mg PO HS [facility] Last Admin: 09/30/17 21:15 Dose: 25 mg Epoetin Alec (Procrit) 10,000 unit IV TTS [facility] Last Admin: 10/01/17 13:00 Dose: 10,000 unit Epoetin Alec (Procrit) 2,000 u IV TTS [facility] Last Admin: 10/01/17 13:01 Dose: 2,000 u Epoetin Aelc (Procrit) 3,000 unit IV TTS [facility] Last Admin: 10/01/17 13:00 Dose: 3,000 unit Famotidine (Pepcid) 20 mg PO DAILY [facility] Last Admin: 10/01/17 13:39 Dose: 20 mg Insulin Glargine (Lantus) 15 unit SC [facility] Last Admin: 09/30/17 21:19 Dose: Not Given Insulin Human Regular (Novolin R) 0 unit SC [facility] PRN Reason: Protocol Last Admin: 10/01/17 13:47 Dose: Not Given Rosuvastatin Calcium (Crestor) 10 mg PO [facility] Last Admin: 09/30/17 21:14 Dose: 10 mg Vitamin B Complex/Vit C/Folic Acid (Nephro-Cony) 1 tab PO DAILY [facility] Last Admin: 10/01/17 13:40 Dose: 1 tab - Labs Labs: 10/01/17 09:36 10/01/17 09:36 PT 14.9 SECONDS (9.7-12.2) H 09/18/17 03:42 INR 1.3 09/18/17 03:42 APTT 35 SECONDS (21-34) H 09/18/17 03:42 Assessment and Plan - Assessment and Plan (Free Text) Assessment: D/W with Dr. Be ref. antibiotics duration - vanco continue 4 more doses stating
[2017-10-01] MEDS: oxyCODONE 5 mg Immediate Release Tab PO PRN ×2 (16:31→22:11)
[2017-10-01] MEDS: DiphenhydrAMINE 12.5 mg/5 ml LIQ UD (5 ml) PO SCH (21:52)
[2017-10-01] MEDS: (Lantus) Insulin Glargine, Recombinant SC SCH (22:11)
--- NOTE | 2017-10-01 23:56 | CP.PCM.PN ---
Subjective - Date & Time of Evaluation Date of Evaluation: 10/01/17 Time of Evaluation: 23:56 - Subjective Subjective: S/P HD C/O SEVERE PAIN RIGHT INDEX FINGER.. NAIL FELL OFF OVER THE WEEKEND. CRYING FOR MORE PAIN MEDICATION. PATIENT MISSED HER iv VANCOMYCIN DOSE AFTER HEMODIALYSIS. PRESENTLY HAS NO iv ACCESS. CASE DISCUSSED WITH PROCESSING ASSOCIATE. MS UNDERWOOD. CONTINUE iv VANCOMYCIN 1 G POST EACH HEMODIALYSIS X 4 DOSES MORE TO COMPLETE 9 DOSES. Objective - Vital Signs/Intake and Output Vital Signs (last 24 hours): Temp Pulse Resp BP Pulse Ox 98.3 F 95 H 20 163/72 H 95 10/01/17 16:30 10/01/17 16:30 10/01/17 16:30 10/01/17 17:31 10/01/17 16:30 Intake and Output: 10/01/17 10/02/17 18:59 06:59 Intake Total 325 Balance 325 - Medications Medications: Current Medications Acetaminophen (Tylenol 325mg Tab) 650 mg PO Q6 PRN PRN Reason: Pain, moderate (4-7) Last Admin: 09/30/17 12:36 Dose: 650 mg Amlodipine Besylate (Norvasc) 10 mg PO DAILY [facility] Last Admin: 10/01/17 13:40 Dose: 10 mg Aspirin (Ecotrin) 81 mg PO DAILY [facility] Last Admin: 10/01/17 13:41 Dose: 81 mg Benzocaine/Menthol (Cepacol Sore Throat) 1 poppy MT Q2H PRN PRN Reason: Sore Throat Last Admin: 09/27/17 04:37 Dose: 1 poppy Calcium Acetate (Phoslo) 667 mg PO TIDCC [facility] Last Admin: 10/01/17 17:30 Dose: 667 mg Carvedilol (Coreg) 12.5 mg PO BID [facility] Last Admin: 10/01/17 17:31 Dose: 12.5 mg Dextrose (Dextrose 50% Inj) 25 ml IV Q4H PRN PRN Reason: Hypoglycemia Last Admin: 09/18/17 00:23 Dose: 25 ml Diphenhydramine HCl (Benadryl) 25 mg PO HS [facility] Last Admin: 10/01/17 21:52 Dose: 25 mg Epoetin Alec (Procrit) 10,000 unit IV TTS [facility] Last Admin: 10/01/17 13:00 Dose: 10,000 unit Epoetin Alec (Procrit) 2,000 u IV [facility] Last Admin: 10/01/17 13:01 Dose: 2,000 u Epoetin Alec (Procrit) 3,000 unit IV [facility] Last Admin: 10/01/17 13:00 Dose: 3,000 unit Famotidine (Pepcid) 20 mg PO DAILY [facility] Last Admin: 10/01/17 13:39 Dose: 20 mg Vancomycin/Sodium Chloride (Vancomycin 1 Gm/Ns 200 Ml) 1 gm in 200 mls @ 133 mls/hr IVPB [facility] PRN Reason: Protocol Stop: 10/10/17 11:12 Insulin Glargine (Lantus) 15 unit SC [facility] Last Admin: 10/01/17 22:11 Dose: 15 u Insulin Human Regular (Novolin R) 0 unit SC [facility] PRN Reason: Protocol Last Admin: 10/01/17 21:47 Dose: Not Given Oxycodone HCl (Oxycodone Immediate Release Tab) 5 mg PO Q6 PRN PRN Reason: Pain, severe (8-10) Last Admin: 10/01/17 22:11 Dose: 5 mg Rosuvastatin Calcium (Crestor) 10 mg PO [facility] Last Admin: 10/01/17 21:52 Dose: 10 mg Vitamin B Complex/Vit C/Folic Acid (Nephro-Cony) 1 tab PO DAILY [facility] Last Admin: 10/01/17 13:40 Dose: 1 tab - Labs Labs: 10/01/17 09:36 10/01/17 09:36 PT 14.9 SECONDS (9.7-12.2) H 09/18/17 03:42 INR 1.3 09/18/17 03:42 APTT 35 SECONDS (21-34) H 09/18/17 03:42 - Constitutional Appears: No Acute Distress - Head Exam Head Exam: NORMAL INSPECTION - Eye Exam Eye Exam: EOMI, PERRL - ENT Exam ENT Exam: Normal Oropharynx - Neck Exam Neck Exam: Normal Inspection - Respiratory Exam Respiratory Exam: Clear to Ausculation Bilateral, NORMAL BREATHING PATTERN - Cardiovascular Exam Cardiovascular Exam: REGULAR RHYTHM, +S1, +S2 - GI/Abdominal Exam GI & Abdominal Exam: Soft, Normal Bowel Sounds - Extremities Exam Extremities Exam: absent: Full ROM (S/P B/L AKA.) Additional comments: RT. INDEX fINGER POORLY HEALING. lOCAL WOUND CARE PER ORTHO. Assessment and Plan (1) Abscess of finger of right hand Assessment & Plan: PATIENT MAY NEED AMPUTATION TIP OF THE FINGER. CONTINUE iv ANTIBIOTICS. Status: Acute (2) ESRD (end stage renal disease) Status: Acute (3) PVD (peripheral vascular disease) Status: Acute (4) S/P BKA (below knee amputation) bilateral Status: Acute (5) Diabetes mellitus Status: Acute (6) HTN (hypertension) Status: Acute (7) History of colostomy reversal Status: Acute
[2017-10-02] MEDS: oxyCODONE 5 mg Immediate Release Tab PO PRN ×3 (06:34→22:56)
[2017-10-02] MEDS: (Novolin R) Insulin Human Regular 100 units/ml vial SC SCH ×4 (08:01→21:33)
[2017-10-02] MEDS: Multivitamin Vitamin B Complex (Nephro-Vite) Tab PO SCH (12:07)
--- NOTE | 2017-10-02 14:24 | CP.PCM.PN ---
Subjective - Date & Time of Evaluation Date of Evaluation: 10/02/17 Time of Evaluation: 14:22 - Subjective Subjective: c/o severe finger pain might need partial amputation stable HD 10/01 EPO dose increased; TSAT low BP labile - to observe Objective - Vital Signs/Intake and Output Vital Signs (last 24 hours): Temp Pulse Resp BP Pulse Ox 99.3 F 97 H 20 173/75 H 96 10/02/17 07:00 10/02/17 07:00 10/02/17 07:00 10/02/17 09:50 10/02/17 07:00 Intake and Output: 10/02/17 10/02/17 06:59 18:59 Intake Total 240 Balance 240 - Medications Medications: Current Medications Acetaminophen (Tylenol 325mg Tab) 650 mg PO Q6 PRN PRN Reason: Pain, moderate (4-7) Last Admin: 09/30/17 12:36 Dose: 650 mg Amlodipine Besylate (Norvasc) 10 mg PO DAILY [facility] Last Admin: 10/02/17 09:50 Dose: 10 mg Aspirin (Ecotrin) 81 mg PO DAILY [facility] Last Admin: 10/02/17 09:50 Dose: 81 mg Benzocaine/Menthol (Cepacol Sore Throat) 1 poppy MT Q2H PRN PRN Reason: Sore Throat Last Admin: 09/27/17 04:37 Dose: 1 poppy Calcium Acetate (Phoslo) 667 mg PO [facility] Last Admin: 10/02/17 12:49 Dose: 667 mg Carvedilol (Coreg) 12.5 mg PO BID [facility] Last Admin: 10/02/17 09:50 Dose: 12.5 mg Dextrose (Dextrose 50% Inj) 25 ml IV Q4H PRN PRN Reason: Hypoglycemia Last Admin: 09/18/17 00:23 Dose: 25 ml Diphenhydramine HCl (Benadryl) 25 mg PO HS [facility] Last Admin: 10/01/17 21:52 Dose: 25 mg Epoetin Alec (Procrit) 10,000 unit IV TTS [facility] Last Admin: 10/01/17 13:00 Dose: 10,000 unit Epoetin Alec (Procrit) 2,000 u IV TTS [facility] Last Admin: 10/01/17 13:01 Dose: 2,000 u Epoetin Alec (Procrit) 3,000 unit IV TTS [facility] Last Admin: 10/01/17 13:00 Dose: 3,000 unit Famotidine (Pepcid) 20 mg PO DAILY [facility] Last Admin: 10/02/17 09:50 Dose: 20 mg Vancomycin/Sodium Chloride (Vancomycin 1 Gm/Ns 200 Ml) 1 gm in 200 mls @ 133 mls/hr IVPB TTS [facility] PRN Reason: Protocol Stop: 10/10/17 11:12 Insulin Glargine (Lantus) 15 unit SC [facility] Last Admin: 10/01/17 22:11 Dose: 15 u Insulin Human Regular (Novolin R) 0 unit SC [facility] PRN Reason: Protocol Last Admin: 10/02/17 12:08 Dose: Not Given Oxycodone HCl (Oxycodone Immediate Release Tab) 5 mg PO Q6 PRN PRN Reason: Pain, severe (8-10) Last Admin: 10/02/17 06:34 Dose: 5 mg Rosuvastatin Calcium (Crestor) 10 mg PO [facility] Last Admin: 10/01/17 21:52 Dose: 10 mg Vitamin B Complex/Vit C/Folic Acid (Nephro-Cony) 1 tab PO DAILY [facility] Last Admin: 10/02/17 12:07 Dose: 1 tab - Labs Labs: 10/01/17 09:36 10/01/17 09:36 PT 14.9 SECONDS (9.7-12.2) H 09/18/17 03:42 INR 1.3 09/18/17 03:42 APTT 35 SECONDS (21-34) H 09/18/17 03:42 - Constitutional Appears: In Acute Distress, Chronically Ill - Head Exam Head Exam: ATRAUMATIC, NORMAL INSPECTION - Eye Exam Eye Exam: EOMI, Normal appearance - Neck Exam Neck Exam: Normal Inspection. absent: Tenderness - Respiratory Exam Respiratory Exam: Clear to Ausculation Bilateral, NORMAL BREATHING PATTERN - Cardiovascular Exam Cardiovascular Exam: REGULAR RHYTHM, +S1 - GI/Abdominal Exam GI & Abdominal Exam: Soft. absent: Tenderness - Extremities Exam Extremities Exam: Normal Inspection. absent: Tenderness - Neurological Exam Neurological Exam: Alert, CN II-XII Intact - Skin Skin Exam: Dry, Warm Assessment and Plan (1) PVD (peripheral vascular disease) Status: Acute (2) S/P BKA (below knee amputation) bilateral Status: Acute (3) ESRD (end stage renal disease) Status: Acute (4) Type 2 diabetes mellitus with diabetic nephropathy Status: Acute - Assessment and Plan (Free Text) Plan: dialysis TTS monitor need for finger surgery add IV Fe
--- NOTE | 2017-10-02 15:21 | CP.PCM.PN ---
Subjective - Date & Time of Evaluation Date of Evaluation: 10/02/17 Time of Evaluation: 15:18 - Subjective Subjective: Patient states she is anxious about surgery, verbalizes understanding of risks/ benefits/alt to right index finger partial amputation and agrees to procedure. Objective - Vital Signs/Intake and Output Vital Signs (last 24 hours): Temp Pulse Resp BP Pulse Ox 99.3 F 97 H 20 173/75 H 96 10/02/17 07:00 10/02/17 07:00 10/02/17 07:00 10/02/17 09:50 10/02/17 07:00 Intake and Output: 10/02/17 10/02/17 06:59 18:59 Intake Total 240 Balance 240 - Medications Medications: Current Medications Acetaminophen (Tylenol 325mg Tab) 650 mg PO Q6 PRN PRN Reason: Pain, moderate (4-7) Last Admin: 09/30/17 12:36 Dose: 650 mg Amlodipine Besylate (Norvasc) 10 mg PO DAILY [facility] Last Admin: 10/02/17 09:50 Dose: 10 mg Aspirin (Ecotrin) 81 mg PO DAILY [facility] Last Admin: 10/02/17 09:50 Dose: 81 mg Benzocaine/Menthol (Cepacol Sore Throat) 1 poppy MT Q2H PRN PRN Reason: Sore Throat Last Admin: 09/27/17 04:37 Dose: 1 poppy Calcium Acetate (Phoslo) 667 mg PO TIDCC [facility] Last Admin: 10/02/17 12:49 Dose: 667 mg Carvedilol (Coreg) 12.5 mg PO BID [facility] Last Admin: 10/02/17 09:50 Dose: 12.5 mg Dextrose (Dextrose 50% Inj) 25 ml IV Q4H PRN PRN Reason: Hypoglycemia Last Admin: 09/18/17 00:23 Dose: 25 ml Diphenhydramine HCl (Benadryl) 25 mg PO HS [facility] Last Admin: 10/01/17 21:52 Dose: 25 mg Epoetin Alec (Procrit) 10,000 unit IV TTS [facility] Last Admin: 10/01/17 13:00 Dose: 10,000 unit Epoetin Alec (Procrit) 2,000 u IV TTS [facility] Last Admin: 10/01/17 13:01 Dose: 2,000 u Epoetin Alec (Procrit) 3,000 unit IV TTS [facility] Last Admin: 10/01/17 13:00 Dose: 3,000 unit Famotidine (Pepcid) 20 mg PO DAILY [facility] Last Admin: 10/02/17 09:50 Dose: 20 mg Ferric Sodium Gluconate Complex (Ferrlecit) 125 mg IVPB TTS [facility] Stop: 10/18/17 10:01 Vancomycin/Sodium Chloride (Vancomycin 1 Gm/Ns 200 Ml) 1 gm in 200 mls @ 133 mls/hr IVPB TTS [facility] PRN Reason: Protocol Stop: 10/10/17 11:12 Insulin Glargine (Lantus) 15 unit SC [facility] Last Admin: 10/01/17 22:11 Dose: 15 u Insulin Human Regular (Novolin R) 0 unit SC [facility] PRN Reason: Protocol Last Admin: 10/02/17 12:08 Dose: Not Given Oxycodone HCl (Oxycodone Immediate Release Tab) 5 mg PO Q6 PRN PRN Reason: Pain, severe (8-10) Last Admin: 10/02/17 06:34 Dose: 5 mg Rosuvastatin Calcium (Crestor) 10 mg PO [facility] Last Admin: 10/01/17 21:52 Dose: 10 mg Vitamin B Complex/Vit C/Folic Acid (Nephro-Cony) 1 tab PO DAILY [facility] Last Admin: 10/02/17 12:07 Dose: 1 tab - Labs Labs: 10/01/17 09:36 10/01/17 09:36 PT 14.9 SECONDS (9.7-12.2) H 09/18/17 03:42 INR 1.3 09/18/17 03:42 APTT 35 SECONDS (21-34) H 09/18/17 03:42 - Extremities Exam Additional comments: dry no change bone exposed Assessment and Plan (1) Abscess of finger of right hand Assessment & Plan: bone exposed for OR tomorrow Dr. Luo NPO p [place] labs d/w Dr. Luo agrees with above Status: Acute (2) Osteomyelitis of finger of right hand Status: Acute
[2017-10-02 16:42] LABS: MEAN CELL VOLUME 96.2 fL (81.0-99.0); MEAN CORPUSCULAR HEMOGLOBIN 32.9 pg (27.0-31.0); MEAN CORPUSCULAR HGB CONC 34.2 g/dL (33.0-37.0); MEAN PLATELET VOLUME 7.4 fL (7.2-11.7); RBC 2.75 Mil/uL (3.80-5.20); RED CELL DISTRIBUTION WIDTH 14.1 % (11.5-14.5); WHITE BLOOD COUNT 13.8 K/uL (4.8-10.8)
[2017-10-02 17:21] LABS: CALCIUM 9.4 mg/dl (8.6-10.4)
[2017-10-02] MEDS: (Lantus) Insulin Glargine, Recombinant SC SCH (21:34)
[2017-10-02] MEDS: DiphenhydrAMINE 12.5 mg/5 ml LIQ UD (5 ml) PO SCH (21:34)
--- NOTE | 2017-10-02 23:00 | CP.PCM.PN ---
Subjective - Date & Time of Evaluation Date of Evaluation: 10/02/17 Time of Evaluation: 23:00 - Subjective Subjective: pt is c/o pain pain over the rt hand will get HD in am got one unit of prbc yesterday anxious vital stable eating ok for OR in am Objective - Vital Signs/Intake and Output Vital Signs (last 24 hours): Temp Pulse Resp BP Pulse Ox 98.1 F 86 20 123/69 99 10/02/17 15:03 10/02/17 15:03 10/02/17 15:03 10/02/17 17:43 10/02/17 15:03 - Medications Medications: Current Medications Acetaminophen (Tylenol 325mg Tab) 650 mg PO Q6 PRN PRN Reason: Pain, moderate (4-7) Last Admin: 09/30/17 12:36 Dose: 650 mg Amlodipine Besylate (Norvasc) 10 mg PO DAILY [facility] Last Admin: 10/02/17 09:50 Dose: 10 mg Aspirin (Ecotrin) 81 mg PO DAILY [facility] Last Admin: 10/02/17 09:50 Dose: 81 mg Benzocaine/Menthol (Cepacol Sore Throat) 1 poppy MT Q2H PRN PRN Reason: Sore Throat Last Admin: 09/27/17 04:37 Dose: 1 poppy Calcium Acetate (Phoslo) 667 mg PO [facility] Last Admin: 10/02/17 17:43 Dose: 667 mg Carvedilol (Coreg) 12.5 mg PO BID [facility] Last Admin: 10/02/17 17:43 Dose: 12.5 mg Dextrose (Dextrose 50% Inj) 25 ml IV Q4H PRN PRN Reason: Hypoglycemia Last Admin: 09/18/17 00:23 Dose: 25 ml Diphenhydramine HCl (Benadryl) 25 mg PO HS [facility] Last Admin: 10/02/17 21:34 Dose: 25 mg Epoetin Alec (Procrit) 10,000 unit IV TTS [facility] Last Admin: 10/01/17 13:00 Dose: 10,000 unit Epoetin Alec (Procrit) 2,000 u IV TTS [facility] Last Admin: 10/01/17 13:01 Dose: 2,000 u Epoetin Alec (Procrit) 3,000 unit IV TTS [facility] Last Admin: 10/01/17 13:00 Dose: 3,000 unit Famotidine (Pepcid) 20 mg PO DAILY [facility] Last Admin: 10/02/17 09:50 Dose: 20 mg Ferric Sodium Gluconate Complex (Ferrlecit) 125 mg IVPB TTS [facility] Stop: 10/18/17 10:01 Vancomycin/Sodium Chloride (Vancomycin 1 Gm/Ns 200 Ml) 1 gm in 200 mls @ 133 mls/hr IVPB TTS [facility] PRN Reason: Protocol Stop: 10/10/17 11:12 Insulin Glargine (Lantus) 15 unit SC HS [facility] Last Admin: 10/02/17 21:34 Dose: Not Given Insulin Human Regular (Novolin R) 0 unit SC [facility] PRN Reason: Protocol Last Admin: 10/02/17 21:33 Dose: Not Given Oxycodone HCl (Oxycodone Immediate Release Tab) 5 mg PO Q6 PRN PRN Reason: Pain, severe (8-10) Last Admin: 10/02/17 22:56 Dose: 5 mg Rosuvastatin Calcium (Crestor) 10 mg PO [facility] Last Admin: 10/02/17 21:34 Dose: 10 mg Vitamin B Complex/Vit C/Folic Acid (Nephro-Cony) 1 tab PO DAILY [facility] Last Admin: 10/02/17 12:07 Dose: 1 tab - Labs Labs: 10/02/17 16:36 10/02/17 16:36 PT 14.9 SECONDS (9.7-12.2) H 09/18/17 03:42 INR 1.3 09/18/17 03:42 APTT 35 SECONDS (21-34) H 09/18/17 03:42
--- NOTE | 2017-10-02 23:41 | CP.PCM.PN ---
Subjective - Date & Time of Evaluation Date of Evaluation: 10/02/17 Time of Evaluation: 23:41 - Subjective Subjective: AFEBRILE, ANXIOUS ABOUT SURGERY. STARTED CRYING. UNDERSTANDS AND IS AGREEABLE FOR SURGERY. FOR OR IN A.M. FOR AMPUTATION RT INDEX FINGER TIP Objective - Vital Signs/Intake and Output Vital Signs (last 24 hours): Temp Pulse Resp BP Pulse Ox 98.1 F 86 20 123/69 99 10/02/17 15:03 10/02/17 15:03 10/02/17 15:03 10/02/17 17:43 10/02/17 15:03 - Medications Medications: Current Medications Acetaminophen (Tylenol 325mg Tab) 650 mg PO Q6 PRN PRN Reason: Pain, moderate (4-7) Last Admin: 09/30/17 12:36 Dose: 650 mg Amlodipine Besylate (Norvasc) 10 mg PO DAILY [facility] Last Admin: 10/02/17 09:50 Dose: 10 mg Aspirin (Ecotrin) 81 mg PO DAILY [facility] Last Admin: 10/02/17 09:50 Dose: 81 mg Benzocaine/Menthol (Cepacol Sore Throat) 1 poppy MT Q2H PRN PRN Reason: Sore Throat Last Admin: 09/27/17 04:37 Dose: 1 poppy Calcium Acetate (Phoslo) 667 mg PO T[facility]CC [facility] Last Admin: 10/02/17 17:43 Dose: 667 mg Carvedilol (Coreg) 12.5 mg PO BID [facility] Last Admin: 10/02/17 17:43 Dose: 12.5 mg Dextrose (Dextrose 50% Inj) 25 ml IV Q4H PRN PRN Reason: Hypoglycemia Last Admin: 09/18/17 00:23 Dose: 25 ml Diphenhydramine HCl (Benadryl) 25 mg PO HS [facility] Last Admin: 10/02/17 21:34 Dose: 25 mg Epoetin Alec (Procrit) 10,000 unit IV TTS [facility] Last Admin: 10/01/17 13:00 Dose: 10,000 unit Epoetin Alec (Procrit) 2,000 u IV TTS [facility] Last Admin: 10/01/17 13:01 Dose: 2,000 u Epoetin Alec (Procrit) 3,000 unit IV TTS [facility] Last Admin: 10/01/17 13:00 Dose: 3,000 unit Famotidine (Pepcid) 20 mg PO DAILY [facility] Last Admin: 10/02/17 09:50 Dose: 20 mg Ferric Sodium Gluconate Complex (Ferrlecit) 125 mg IVPB TTS [facility] Stop: 10/18/17 10:01 Vancomycin/Sodium Chloride (Vancomycin 1 Gm/Ns 200 Ml) 1 gm in 200 mls @ 133 mls/hr IVPB TTS [facility] PRN Reason: Protocol Stop: 10/10/17 11:12 Insulin Glargine (Lantus) 15 unit SC [facility] Last Admin: 10/02/17 21:34 Dose: Not Given Insulin Human Regular (Novolin R) [address] [facility] PRN Reason: Protocol Last Admin: 10/02/17 21:33 Dose: Not Given Oxycodone HCl (Oxycodone Immediate Release Tab) 5 mg PO Q6 PRN PRN Reason: Pain, severe (8-10) Last Admin: 10/02/17 22:56 Dose: 5 mg Rosuvastatin Calcium (Crestor) 10 mg PO [facility] Last Admin: 10/02/17 21:34 Dose: 10 mg Vitamin B Complex/Vit C/Folic Acid (Nephro-Cony) 1 tab PO DAILY [facility] Last Admin: 10/02/17 12:07 Dose: 1 tab - Labs Labs: 10/02/17 16:36 10/02/17 16:36 PT 14.9 SECONDS (9.7-12.2) H 09/18/17 03:42 INR 1.3 09/18/17 03:42 APTT 35 SECONDS (21-34) H 09/18/17 03:42 - Constitutional Appears: No Acute Distress - Head Exam Head Exam: NORMAL INSPECTION - Eye Exam Eye Exam: EOMI, PERRL - ENT Exam ENT Exam: Normal Oropharynx - Neck Exam Neck Exam: Normal Inspection - Respiratory Exam Respiratory Exam: Clear to Ausculation Bilateral, NORMAL BREATHING PATTERN - Cardiovascular Exam Cardiovascular Exam: REGULAR RHYTHM, +S1, +S2 - GI/Abdominal Exam GI & Abdominal Exam: Soft, Normal Bowel Sounds - Extremities Exam Extremities Exam: absent: Full ROM (WHEELCHAIR-BOUND.) Additional comments: RIGHT INDEX FINGER DISCOLORATION DISTALLY NOTED. - Neurological Exam Neurological Exam: Awake, CN II-XII Intact, Oriented x3 - Skin Skin Exam: Normal Color, Warm Assessment and Plan (1) Abscess of finger of right hand Assessment & Plan: FOR OR IN AM. ON IV VANCOMYCIN 1GM POST HD TTS. Status: Acute (2) ESRD (end stage renal disease) Assessment & Plan: HD TTS. Status: Acute (3) PVD (peripheral vascular disease) Status: Acute (4) S/P BKA (below knee amputation) bilateral Status: Acute (5) Diabetes mellitus Status: Acute (6) HTN (hypertension) Status: Acute (7) History of colostomy reversal Status: Acute
--- NOTE | 2017-10-03 04:00 | CP.PCM.PN ---
Subjective - Date & Time of Evaluation Date of Evaluation: 10/03/17 Time of Evaluation: 03:57 - Subjective Subjective: paged for bright red blood in the commode of the patient in [id number] at 3:40Am patient denies any symptoms states she is here for the reversal of her colostomy which she had done a few days ago; states she ate yesterday clear liquids and lucy bread patient denies any symptoms, no abdominal pain, fevers/chills, or blood per vagina confirmed blood in commode will give IVP 80mg Protonix stat CBC Stat CMP Stat type and screen stat INR/PTT will alert attending physician; recommend GI Consult as soon as possible Jaron Valencia PGY2 Objective - Vital Signs/Intake and Output Vital Signs (last 24 hours): Temp Pulse Resp BP Pulse Ox 98.6 F 91 H 20 154/64 H 95 10/02/17 23:10 10/02/17 23:10 10/02/17 23:10 10/02/17 23:10 10/02/17 23:10 - Medications Medications: Current Medications Acetaminophen (Tylenol 325mg Tab) 650 mg PO Q6 PRN PRN Reason: Pain, moderate (4-7) Last Admin: 09/30/17 12:36 Dose: 650 mg Amlodipine Besylate (Norvasc) 10 mg PO DAILY [facility] Last Admin: 10/02/17 09:50 Dose: 10 mg Aspirin (Ecotrin) 81 mg PO DAILY [facility] Last Admin: 10/02/17 09:50 Dose: 81 mg Benzocaine/Menthol (Cepacol Sore Throat) 1 poppy MT Q2H PRN PRN Reason: Sore Throat Last Admin: 09/27/17 04:37 Dose: 1 poppy Calcium Acetate (Phoslo) 667 mg PO TIDCC [facility] Last Admin: 10/02/17 17:43 Dose: 667 mg Carvedilol (Coreg) 12.5 mg PO BID [facility] Last Admin: 10/02/17 17:43 Dose: 12.5 mg Dextrose (Dextrose 50% Inj) 25 ml IV Q4H PRN PRN Reason: Hypoglycemia Last Admin: 09/18/17 00:23 Dose: 25 ml Diphenhydramine HCl (Benadryl) 25 mg PO HS [facility] Last Admin: 10/02/17 21:34 Dose: 25 mg Epoetin Alec (Procrit) 10,000 unit IV TTS [facility] Last Admin: 10/01/17 13:00 Dose: 10,000 unit Epoetin Alec (Procrit) 2,000 u IV TTS [facility] Last Admin: 10/01/17 13:01 Dose: 2,000 u Epoetin Alec (Procrit) 3,000 unit IV TTS [facility] Last Admin: 10/01/17 13:00 Dose: 3,000 unit Famotidine (Pepcid) 20 mg PO DAILY [facility] Last Admin: 10/02/17 09:50 Dose: 20 mg Ferric Sodium Gluconate Complex (Ferrlecit) 125 mg IVPB TTS [facility] Stop: 10/18/17 10:01 Vancomycin/Sodium Chloride (Vancomycin 1 Gm/Ns 200 Ml) 1 gm in 200 mls @ 133 mls/hr IVPB TTS [facility] PRN Reason: Protocol Stop: 10/10/17 11:12 Insulin Glargine (Lantus) 15 unit SC [facility] Last Admin: 10/02/17 21:34 Dose: Not Given Insulin Human Regular (Novolin R) 0 unit SC [facility] PRN Reason: Protocol Last Admin: 10/02/17 21:33 Dose: Not Given Oxycodone HCl (Oxycodone Immediate Release Tab) 5 mg PO Q6 PRN PRN Reason: Pain, severe (8-10) Last Admin: 10/02/17 22:56 Dose: 5 mg Rosuvastatin Calcium (Crestor) 10 mg PO [facility] Last Admin: 10/02/17 21:34 Dose: 10 mg Vitamin B Complex/Vit C/Folic Acid (Nephro-Cony) 1 tab PO DAILY [facility] Last Admin: 10/02/17 12:07 Dose: 1 tab - Labs Labs: 10/02/17 16:36 10/02/17 16:36 PT 14.9 SECONDS (9.7-12.2) H 09/18/17 03:42 INR 1.3 09/18/17 03:42 APTT 35 SECONDS (21-34) H 09/18/17 03:42
[2017-10-03 08:12] LABS: BASO # 0.1 K/uL (0.0-0.2); BASO % 0.8 % (0.0-2.0); EOS # 0.2 K/uL (0.0-0.7); EOS % 1.3 % (0.0-4.0); HEMOGLOBIN 8.5 g/dL (11.0-16.0); LYMPH # 1.8 K/uL (1.0-4.3); LYMPH % 14.8 % (20.0-40.0); MEAN CORPUSCULAR HEMOGLOBIN 32.6 pg (27.0-31.0); MEAN CORPUSCULAR HGB CONC 33.7 g/dL (33.0-37.0); MEAN PLATELET VOLUME 7.9 fL (7.2-11.7); MONO # 0.6 K/uL (0.0-0.8); MONO % 5.1 % (0.0-10.0); NEUT # 9.3 K/uL (1.8-7.0); RBC 2.61 Mil/uL (3.80-5.20); RED CELL DISTRIBUTION WIDTH 13.8 % (11.5-14.5); WHITE BLOOD COUNT 11.9 K/uL (4.8-10.8)
[2017-10-03 08:21] LABS: PROTHROMBIN TIME 11.6 SECONDS (9.7-12.2)
[2017-10-03] MEDS: (Novolin R) Insulin Human Regular 100 units/ml vial SC SCH ×4 (08:25→21:40)
[2017-10-03 08:28] LABS: ALB/GLOB RATIO 0.9 (1.0-2.1); ALBUMIN 3.5 g/dL (3.5-5.0); ALT/SGPT 7 U/L (9-52); AST/SGOT 24 U/L (14-36); BLOOD UREA NITROGEN 27 mg/dL (7-17); CALCIUM 9.3 mg/dl (8.6-10.4); GFR AFRICAN-AMERICAN 8; GFR NON-AFRICAN AMERICAN 7
[2017-10-03] MEDS: Multivitamin Vitamin B Complex (Nephro-Vite) Tab PO SCH (10:00)
[2017-10-03] MEDS ORDERED: Epoetin Alfa Dialysis 3000 UNIT/ML Inj IV SCH (10:00)
[2017-10-03] MEDS ORDERED: Epoetin Alfa 10,000 unit/ml Dialysis IV ONE (10:00)
--- NOTE | 2017-10-03 10:08 | CP.PCM.PN ---
Subjective - Date & Time of Evaluation Date of Evaluation: 10/03/17 Time of Evaluation: 10:06 - Subjective Subjective: for finger amputation now has had severe pain scheduled for HD post dialysis might need blood transfusion post amputation if bleeding significant IV Fe ordered with HD BP better controlled Objective - Vital Signs/Intake and Output Vital Signs (last 24 hours): Temp Pulse Resp BP Pulse Ox 98.7 F 84 20 153/78 H 97 10/03/17 07:30 10/03/17 07:30 10/03/17 07:30 10/03/17 07:30 10/03/17 07:30 Intake and Output: 10/03/17 10/03/17 06:59 18:59 Intake Total 0 Balance 0 - Medications Medications: Current Medications Acetaminophen (Tylenol 325mg Tab) 650 mg PO Q6 PRN PRN Reason: Pain, moderate (4-7) Last Admin: 09/30/17 12:36 Dose: 650 mg Amlodipine Besylate (Norvasc) 10 mg PO DAILY [facility] Last Admin: 10/02/17 09:50 Dose: 10 mg Aspirin (Ecotrin) 81 mg PO DAILY [facility] Last Admin: 10/02/17 09:50 Dose: 81 mg Benzocaine/Menthol (Cepacol Sore Throat) 1 poppy MT Q2H PRN PRN Reason: Sore Throat Last Admin: 09/27/17 04:37 Dose: 1 poppy Calcium Acetate (Phoslo) 667 mg PO TIDCC [facility] Last Admin: 10/03/17 08:25 Dose: Not Given Carvedilol (Coreg) 12.5 mg PO BID [facility] Last Admin: 10/02/17 17:43 Dose: 12.5 mg Dextrose (Dextrose 50% Inj) 25 ml IV Q4H PRN PRN Reason: Hypoglycemia Last Admin: 09/18/17 00:23 Dose: 25 ml Diphenhydramine HCl (Benadryl) 25 mg PO HS [facility] Last Admin: 10/02/17 21:34 Dose: 25 mg Epoetin Alec (Procrit) 10,000 unit IV TTS [facility] Last Admin: 10/01/17 13:00 Dose: 10,000 unit Epoetin Alec (Procrit) 2,000 u IV TTS [facility] Last Admin: 10/01/17 13:01 Dose: 2,000 u Epoetin Alec (Procrit) 3,000 unit IV TTS [facility] Last Admin: 10/01/17 13:00 Dose: 3,000 unit Famotidine (Pepcid) 20 mg PO DAILY [facility] Last Admin: 10/02/17 09:50 Dose: 20 mg Ferric Sodium Gluconate Complex (Ferrlecit) 125 mg IVPB TTS [facility] Stop: 10/18/17 10:01 Vancomycin/Sodium Chloride (Vancomycin 1 Gm/Ns 200 Ml) 1 gm in 200 mls @ 133 mls/hr IVPB TTS [facility] PRN Reason: Protocol Stop: 10/10/17 11:12 Insulin Glargine (Lantus) 15 unit SC [facility] Last Admin: 10/02/17 21:34 Dose: Not Given Insulin Human Regular (Novolin R) 0 unit SC [facility] PRN Reason: Protocol Last Admin: 10/03/17 08:25 Dose: Not Given Oxycodone HCl (Oxycodone Immediate Release Tab) 5 mg PO Q6 PRN PRN Reason: Pain, severe (8-10) Last Admin: 10/02/17 22:56 Dose: 5 mg Pantoprazole Sodium (Protonix Inj) 80 mg IVP Q12H [facility] Rosuvastatin Calcium (Crestor) 10 mg PO [facility] Last Admin: 10/02/17 21:34 Dose: 10 mg Vitamin B Complex/Vit C/Folic Acid (Nephro-Cony) 1 tab PO DAILY [facility] Last Admin: 10/02/17 12:07 Dose: 1 tab - Labs Labs: 10/03/17 07:53 10/03/17 07:53 PT 11.6 SECONDS (9.7-12.2) 10/03/17 07:53 INR 1.0 10/03/17 07:53 APTT 36 SECONDS (21-34) H 10/03/17 07:53 - Constitutional Appears: No Acute Distress, Chronically Ill - Head Exam Head Exam: ATRAUMATIC, NORMAL INSPECTION - Eye Exam Eye Exam: EOMI, Normal appearance - Neck Exam Neck Exam: Normal Inspection. absent: Tenderness - Respiratory Exam Respiratory Exam: Clear to Ausculation Bilateral, NORMAL BREATHING PATTERN - Cardiovascular Exam Cardiovascular Exam: REGULAR RHYTHM, +S1 - GI/Abdominal Exam GI & Abdominal Exam: Soft. absent: Tenderness - Extremities Exam Extremities Exam: Tenderness - Neurological Exam Neurological Exam: Alert, CN II-XII Intact - Skin Skin Exam: Dry, Warm Assessment and Plan (1) PVD (peripheral vascular disease) Status: Acute (2) S/P BKA (below knee amputation) bilateral Status: Acute (3) ESRD (end stage renal disease) Status: Acute (4) Type 2 diabetes mellitus with diabetic nephropathy Status: Acute - Assessment and Plan (Free Text) Plan: finger amputation monitor need for blood transfusion same meds dialysis later today if pt allows
[2017-10-03] MEDS ORDERED: Propofol 10 mg/ml Inj (20 ML) ONE (10:54)
[2017-10-03] MEDS ORDERED: Midazolam 2 MG/2 ML VIAL ONE (10:54)
[2017-10-03] MEDS ORDERED: ceFAZolin 1 gm in NS 0 GM/0 ML BAG IVPB ONE (11:11)
[2017-10-03] MEDS ORDERED: Lidocaine Hydrochloride 15 ML INJ ONE (11:13)
[2017-10-03] MEDS ORDERED: HYDROmorphone 0.5 mg/0.5 ml ISec IVP PRN (11:48)
--- NOTE | 2017-10-03 11:48 | PCM.SURG1 ---
Surgeon's Initial Post Op Note - Surgeon's Notes Surgeon: Avril Luo MD Overlock Operator: Antonino Ruiz PA-C Type of Anesthesia: IV Sedation, Other (digital block) Anesthesia Administered By: Dr. Poole Pre-Operative Diagnosis: Right index finger osteomyelitis Operative Findings: tourniquet 12min@250mmHg Post-Operative Diagnosis: same Operation Performed: Right index finger partial amputation Specimen/Specimens Removed: 1. distal phalanx. 2. head of middle phalanx Estimated Blood Loss: EBL {In ML}: 0 Blood Products Given: N/A Drains Used: No Drains Post-Op Condition: Fair Date of Surgery/Procedure: 10/03/17 Time of Surgery/Procedure: 11:47
--- NOTE | 2017-10-03 13:16 | RAD ---
PROCEDURE: Right Index finger radiographs. HISTORY: pt in pacu, s/p right index finger partial amputat COMPARISON: 09/19/2017. TECHNIQUE: AP radiograph of the right hand, as well as spot oblique and lateral images of index finger were obtained. FINDINGS: RIGHT INDEX FINGER: Status post partial amputation of the 2nd finger at the level of the middle phalanx. . Remainder of the right hand (as seen on the AP view) grossly intact. JOINTS: Normal. SOFT TISSUES: There is soft tissue swelling in the index finger. OTHER FINDINGS: There are advanced atherosclerotic vascular calcifications. . IMPRESSION: Status post partial amputation of the index finger. Postoperative changes in the periarticular soft tissues.
[2017-10-03] MEDS: oxyCODONE 5 mg Immediate Release Tab PO PRN (14:16)
[2017-10-03] MEDS: Vancomycin 1 gm/NS 200 ml 1 GM/200 ML BAG IVPB SCH (15:02)
[2017-10-03] MEDS: Ferric Sodium Gluconat Complex 62.5 mg/5 ml Vial IVPB SCH (15:03)
[2017-10-03] MEDS: Epoetin Alfa 10,000 unit/ml Dialysis IV SCH ×2 (15:05→15:06)
[2017-10-03] MEDS: Epoetin Alfa Dialysis 2000 U/ML Inj IV SCH (15:07)
[2017-10-03] MEDS: Epoetin Alfa Dialysis 3000 UNIT/ML Inj IV SCH (15:11)
[2017-10-03] MEDS ORDERED: oxyCODONE 5 mg Immediate Release Tab PO ONE (17:27)
[2017-10-03] MEDS ORDERED: HYDROmorphone 0.5 mg/0.5 ml ISec SC ONE (20:30)
[2017-10-03] MEDS: (Lantus) Insulin Glargine, Recombinant SC SCH (22:05)
[2017-10-03] MEDS: DiphenhydrAMINE 12.5 mg/5 ml LIQ UD (5 ml) PO SCH (22:05)
[2017-10-03] MEDS: oxyCODONE 10 mg Immediate Release Tab PO SCH (22:06)
--- NOTE | 2017-10-03 23:05 | CP.PCM.PN ---
Subjective - Date & Time of Evaluation Date of Evaluation: 09/03/17 Time of Evaluation: 19:16 - Subjective Subjective: Patient is currently having no new symptoms. During the weekend the nail came out. Discussed with the hand specialist. For possible surgical intervention. Discussed with the patient. Continue the current treatment. Objective - Vital Signs/Intake and Output Vital Signs (last 24 hours): Temp Pulse Resp BP Pulse Ox 97.8 F 91 H 20 177/81 H 100 10/03/17 17:30 10/03/17 17:30 10/03/17 17:30 10/03/17 17:38 10/03/17 17:30 Intake and Output: 10/03/17 10/04/17 18:59 06:59 Intake Total 70 Balance 70 - Medications Medications: Current Medications Acetaminophen (Tylenol 325mg Tab) 650 mg PO Q6 PRN PRN Reason: Pain, moderate (4-7) Last Admin: 09/30/17 12:36 Dose: 650 mg Amlodipine Besylate (Norvasc) 10 mg PO DAILY [facility] Last Admin: 10/03/17 10:00 Dose: Not Given Aspirin (Ecotrin) 81 mg PO DAILY [facility] Last Admin: 10/02/17 09:50 Dose: 81 mg Benzocaine/Menthol (Cepacol Sore Throat) 1 poppy MT Q2H PRN PRN Reason: Sore Throat Last Admin: 09/27/17 04:37 Dose: 1 poppy Calcium Acetate (Phoslo) 667 mg PO TIDCC [facility] Last Admin: 10/03/17 17:39 Dose: 667 mg Carvedilol (Coreg) 12.5 mg PO BID [facility] Last Admin: 10/03/17 17:38 Dose: 12.5 mg Dextrose (Dextrose 50% Inj) 25 ml IV Q4H PRN PRN Reason: Hypoglycemia Last Admin: 09/18/17 00:23 Dose: 25 ml Diphenhydramine HCl (Benadryl) 25 mg PO HS [facility] Last Admin: 10/03/17 22:05 Dose: 25 mg Epoetin Alec (Procrit) 10,000 unit IV TTS [facility] Last Admin: 10/03/17 15:06 Dose: 10,000 unit Epoetin Alec (Procrit) 2,000 u IV TTS [facility] Last Admin: 10/03/17 15:07 Dose: 2,000 u Epoetin Alec (Procrit) 3,000 unit IV TTS [facility] Last Admin: 10/03/17 15:11 Dose: 3,000 unit Ferric Sodium Gluconate Complex (Ferrlecit) 125 mg IVPB TTS [facility] Stop: 10/18/17 10:01 Last Admin: 10/03/17 15:03 Dose: 125 mg Vancomycin/Sodium Chloride (Vancomycin 1 Gm/Ns 200 Ml) 1 gm in 200 mls @ 133 mls/hr IVPB TTS [facility] PRN Reason: Protocol Stop: 10/10/17 11:12 Last Admin: 10/03/17 15:02 Dose: 133 mls/hr Insulin Glargine (Lantus) 15 unit SC HS [facility] Last Admin: 10/03/17 22:05 Dose: 15 u Insulin Human Regular (Novolin R) 0 unit SC ACHS [facility] PRN Reason: Protocol Last Admin: 10/03/17 21:40 Dose: Not Given Oxycodone HCl (Oxycodone Immediate Release Tab) 10 mg PO Q8 [facility] Stop: 10/06/17 22:01 Last Admin: 10/03/17 22:06 Dose: 10 mg Pantoprazole Sodium (Protonix Inj) 40 mg IVP Q12H [facility] Last Admin: 10/03/17 21:40 Dose: Not Given Rosuvastatin Calcium (Crestor) 10 mg PO HS [facility] Last Admin: 10/03/17 22:06 Dose: 10 mg Vitamin B Complex/Vit C/Folic Acid (Nephro-Cony) 1 tab PO DAILY [facility] Last Admin: 10/03/17 10:00 Dose: Not Given - Labs Labs: 10/03/17 07:53 10/03/17 07:53 PT 11.6 SECONDS (9.7-12.2) 10/03/17 07:53 INR 1.0 10/03/17 07:53 APTT 36 SECONDS (21-34) H 10/03/17 07:53
--- NOTE | 2017-10-03 23:21 | CP.PCM.PN ---
Subjective - Date & Time of Evaluation Date of Evaluation: 10/03/17 Time of Evaluation: 23:21 - Subjective Subjective: S/P OR TODAY. Operation Performed: Right index finger partial amputation Specimen/Specimens Removed: 1. distal phalanx. 2. head of middle phalanx. S/P HD TODAY (TTS ) LABS REVIEWED Objective - Vital Signs/Intake and Output Vital Signs (last 24 hours): Temp Pulse Resp BP Pulse Ox 97.8 F 91 H 20 177/81 H 100 10/03/17 17:30 10/03/17 17:30 10/03/17 17:30 10/03/17 17:38 10/03/17 17:30 Intake and Output: 10/03/17 10/04/17 18:59 06:59 Intake Total 70 Balance 70 - Medications Medications: Current Medications Acetaminophen (Tylenol 325mg Tab) 650 mg PO Q6 PRN PRN Reason: Pain, moderate (4-7) Last Admin: 09/30/17 12:36 Dose: 650 mg Amlodipine Besylate (Norvasc) 10 mg PO DAILY [facility] Last Admin: 10/03/17 10:00 Dose: Not Given Aspirin (Ecotrin) 81 mg PO DAILY [facility] Last Admin: 10/02/17 09:50 Dose: 81 mg Benzocaine/Menthol (Cepacol Sore Throat) 1 poppy MT Q2H PRN PRN Reason: Sore Throat Last Admin: 09/27/17 04:37 Dose: 1 poppy Calcium Acetate (Phoslo) 667 mg PO TIDCC [facility] Last Admin: 10/03/17 17:39 Dose: 667 mg Carvedilol (Coreg) 12.5 mg PO BID [facility] Last Admin: 10/03/17 17:38 Dose: 12.5 mg Dextrose (Dextrose 50% Inj) 25 ml IV Q4H PRN PRN Reason: Hypoglycemia Last Admin: 09/18/17 00:23 Dose: 25 ml Diphenhydramine HCl (Benadryl) 25 mg PO HS [facility] Last Admin: 10/03/17 22:05 Dose: 25 mg Epoetin Alec (Procrit) 10,000 unit IV TTS [facility] Last Admin: 10/03/17 15:06 Dose: 10,000 unit Epoetin Alec (Procrit) 2,000 u IV TTS [facility] Last Admin: 10/03/17 15:07 Dose: 2,000 u Epoetin Alec (Procrit) 3,000 unit IV TTS [facility] Last Admin: 10/03/17 15:11 Dose: 3,000 unit Ferric Sodium Gluconate Complex (Ferrlecit) 125 mg IVPB TTS [facility] Stop: 10/18/17 10:01 Last Admin: 10/03/17 15:03 Dose: 125 mg Vancomycin/Sodium Chloride (Vancomycin 1 Gm/Ns 200 Ml) 1 gm in 200 mls @ 133 mls/hr IVPB TTS [facility] PRN Reason: Protocol Stop: 10/10/17 11:12 Last Admin: 10/03/17 15:02 Dose: 133 mls/hr Insulin Glargine (Lantus) 15 unit SC [facility] Last Admin: 10/03/17 22:05 Dose: 15 u Insulin Human Regular (Novolin R) 0 unit SC [facility] PRN Reason: Protocol Last Admin: 10/03/17 21:40 Dose: Not Given Oxycodone HCl (Oxycodone Immediate Release Tab) 10 mg PO Q8 [facility] Stop: 10/06/17 22:01 Last Admin: 10/03/17 22:06 Dose: 10 mg Pantoprazole Sodium (Protonix Inj) 40 mg IVP Q12H [facility] Last Admin: 10/03/17 21:40 Dose: Not Given Rosuvastatin Calcium (Crestor) 10 mg PO [facility] Last Admin: 10/03/17 22:06 Dose: 10 mg Vitamin B Complex/Vit C/Folic Acid (Nephro-Cony) 1 tab PO DAILY [facility] Last Admin: 10/03/17 10:00 Dose: Not Given - Labs Labs: 10/03/17 07:53 10/03/17 07:53 PT 11.6 SECONDS (9.7-12.2) 10/03/17 07:53 INR 1.0 10/03/17 07:53 APTT 36 SECONDS (21-34) H 10/03/17 07:53 - Constitutional Appears: No Acute Distress - Head Exam Head Exam: NORMAL INSPECTION - Eye Exam Eye Exam: EOMI, PERRL - ENT Exam ENT Exam: Normal Oropharynx - Respiratory Exam Respiratory Exam: Clear to Ausculation Bilateral - Cardiovascular Exam Cardiovascular Exam: REGULAR RHYTHM, +S1, +S2 - GI/Abdominal Exam GI & Abdominal Exam: Soft, Normal Bowel Sounds - Extremities Exam Additional comments: B/L AKA. - Neurological Exam Neurological Exam: Awake - Psychiatric Exam Psychiatric exam: Depressed - Skin Skin Exam: Pallor, Warm Assessment and Plan (1) Abscess of finger of right hand Assessment & Plan: CONTINUE IV VANCOMYCIN 1GM POST HD TTS X 3 MORE DOSES LWC PER ORTHO. Status: Acute (2) ESRD (end stage renal disease) Status: Acute (3) PVD (peripheral vascular disease) Status: Acute (4) S/P BKA (below knee amputation) bilateral Status: Acute (5) Diabetes mellitus Status: Acute (6) HTN (hypertension) Status: Acute (7) History of colostomy reversal Status: Acute
[2017-10-04] MEDS: oxyCODONE 10 mg Immediate Release Tab PO SCH ×3 (06:30→22:01)
[2017-10-04 07:36] LABS: BASO # 0.1 K/uL (0.0-0.2); BASO % 0.9 % (0.0-2.0); EOS # 0.1 K/uL (0.0-0.7); EOS % 1.1 % (0.0-4.0); LYMPH # 1.8 K/uL (1.0-4.3); LYMPH % 18.3 % (20.0-40.0); MEAN CELL VOLUME 96.8 fL (81.0-99.0); MEAN CORPUSCULAR HEMOGLOBIN 33.4 pg (27.0-31.0); MEAN CORPUSCULAR HGB CONC 34.5 g/dL (33.0-37.0); MEAN PLATELET VOLUME 7.9 fL (7.2-11.7); MONO # 0.7 K/uL (0.0-0.8); MONO % 7.1 % (0.0-10.0); NEUT # 7.1 K/uL (1.8-7.0); NEUT % 72.6 % (50.0-75.0); NRBC % 0.1 % (0.0-2.0); RBC 2.41 Mil/uL (3.80-5.20); RED CELL DISTRIBUTION WIDTH 14.1 % (11.5-14.5); WHITE BLOOD COUNT 9.8 K/uL (4.8-10.8)
[2017-10-04] MEDS: (Novolin R) Insulin Human Regular 100 units/ml vial SC SCH ×4 (08:30→21:32)
--- NOTE | 2017-10-04 08:48 | OP ---
PROCEDURE DATE: 10/03/2017 SURGEON: John Luo MD FITTER WELDER: CRISTY Navarro PREOPERATIVE DIAGNOSIS: Osteomyelitis, right index finger distal phalanx. POSTOPERATIVE DIAGNOSIS: Osteomyelitis, right index finger distal phalanx. PROCEDURE: Right index finger partial amputation at the level of middle phalanx. BLOOD LOSS: None. SPECIMENS: Distal phalanx. COMPLICATIONS: None. INDICATIONS: This is a 51-year-old right hand dominant female with history of end-stage renal disease and diabetes, who presented to the hospital with a longstanding osteomyelitis of her right index finger. Symptoms have been progressively getting worse with signs of gangrene. She is indicated for the above surgery. DESCRIPTION OF PROCEDURE: The patient was brought to the operating room and placed supine on the operating room table. After adequate regional anesthesia was given, a well-padded non-sterile tourniquet was placed on the patient's right upper extremity. The entire extremity was then prepped and draped in standard surgical fashion. The time-out was performed. A fishmouth incision was outlined to the level of the proximal phalanx to the level of good viable skin tissue. The arm was elevated and exsanguinated, and Esmarch was removed. The tourniquet was inflated. Incision was made through skin only. Dissection was carried down until identifying the bilateral neurovascular bundles. The neurovascular bundles were cauterized and cut. Dissection was then carried down through identifying the bone. The distal interphalangeal joint was exposed and dissected. The flexor and extensor tendons were incised at that level. A partial amputation was then performed at the DIP level. The distal phalanx was sent off for pathology. Then the prominent middle phalanx head was resected. The specimen was also sent for pathology. The volar and dorsal flaps were intact with good capillary refills. The wound was then copiously irrigated and skin was closed with 4-0 nylon interrupted sutures. The patient tolerated the procedure well. There was no bony prominence. Sterile dressing was applied. She was returned to the recovery room in excellent condition. John Luo MD
[2017-10-04] MEDS: Pantoprazole 40 mg EC Tab PO SCH (10:24)
[2017-10-04] MEDS: Multivitamin Vitamin B Complex (Nephro-Vite) Tab PO SCH (10:24)
--- NOTE | 2017-10-04 12:46 | CP.PCM.PN ---
Subjective - Date & Time of Evaluation Date of Evaluation: 10/04/17 Time of Evaluation: 12:46 - Subjective Subjective: Patient complaining of a lot of pain in her finger. Denies other complaints.. Objective - Vital Signs/Intake and Output Vital Signs (last 24 hours): Temp Pulse Resp BP Pulse Ox 98.1 F 90 20 155/68 H 99 10/04/17 08:30 10/04/17 08:30 10/04/17 08:30 10/04/17 10:24 10/04/17 08:30 Intake and Output: 10/04/17 10/04/17 06:59 18:59 Intake Total 300 Balance 300 - Medications Medications: Current Medications Acetaminophen (Tylenol 325mg Tab) 650 mg PO Q6 PRN PRN Reason: Pain, moderate (4-7) Last Admin: 10/04/17 01:49 Dose: 650 mg Amlodipine Besylate (Norvasc) 10 mg PO DAILY [facility] Last Admin: 10/04/17 10:24 Dose: 10 mg Aspirin (Ecotrin) 81 mg PO DAILY [facility] Last Admin: 10/02/17 09:50 Dose: 81 mg Benzocaine/Menthol (Cepacol Sore Throat) 1 poppy MT Q2H PRN PRN Reason: Sore Throat Last Admin: 09/27/17 04:37 Dose: 1 poppy Calcium Acetate (Phoslo) 667 mg PO TIDCC [facility] Last Admin: 10/04/17 09:45 Dose: 667 mg Carvedilol (Coreg) 12.5 mg PO BID [facility] Last Admin: 10/04/17 10:24 Dose: 12.5 mg Dextrose (Dextrose 50% Inj) 25 ml IV Q4H PRN PRN Reason: Hypoglycemia Last Admin: 09/18/17 00:23 Dose: 25 ml Diphenhydramine HCl (Benadryl) 25 mg PO HS [facility] Last Admin: 10/03/17 22:05 Dose: 25 mg Epoetin Alec (Procrit) 10,000 unit IV TTS [facility] Last Admin: 10/03/17 15:06 Dose: 10,000 unit Epoetin Alec (Procrit) 2,000 u IV TTS [facility] Last Admin: 10/03/17 15:07 Dose: 2,000 u Epoetin Alec (Procrit) 3,000 unit IV TTS [facility] Last Admin: 10/03/17 15:11 Dose: 3,000 unit Ferric Sodium Gluconate Complex (Ferrlecit) 125 mg IVPB TTS [facility] Stop: 10/18/17 10:01 Last Admin: 10/03/17 15:03 Dose: 125 mg Vancomycin/Sodium Chloride (Vancomycin 1 Gm/Ns 200 Ml) 1 gm in 200 mls @ 133 mls/hr IVPB TTS [facility] PRN Reason: Protocol Stop: 10/10/17 11:12 Last Admin: 10/03/17 15:02 Dose: 133 mls/hr Insulin Glargine (Lantus) 15 unit SC HS [facility] Last Admin: 10/03/17 22:05 Dose: 15 u Insulin Human Regular (Novolin R) 0 unit SC ACHS [facility] PRN Reason: Protocol Last Admin: 10/04/17 08:30 Dose: Not Given Oxycodone HCl (Oxycodone Immediate Release Tab) 10 mg PO Q8 [facility] Stop: 10/06/17 22:01 Last Admin: 10/04/17 06:30 Dose: 10 mg Pantoprazole Sodium (Protonix Ec Tab) 40 mg PO DAILY [facility] Last Admin: 10/04/17 10:24 Dose: 40 mg Rosuvastatin Calcium (Crestor) 10 mg PO HS [facility] Last Admin: 10/03/17 22:06 Dose: 10 mg Vitamin B Complex/Vit C/Folic Acid (Nephro-Cony) 1 tab PO DAILY [facility] Last Admin: 10/04/17 10:24 Dose: 1 tab - Labs Labs: 10/04/17 07:18 10/03/17 07:53 PT 11.6 SECONDS (9.7-12.2) 10/03/17 07:53 INR 1.0 10/03/17 07:53 APTT 36 SECONDS (21-34) H 10/03/17 07:53 - Extremities Exam Additional comments: small amount of sang drainage on dressing, left intact hand elevated no swelling to wrist or forearm Assessment and Plan (1) Abscess of finger of right hand Assessment & Plan: POD#1 s/p right index partial amputation ortho stable If discharged over weekend, patient to f/u Dr. Luo within 1 week without fail cont elevation pain medication d/w Dr. Luo, agrees with above Status: Acute (2) Osteomyelitis of finger of right hand Status: Acute
--- NOTE | 2017-10-04 13:37 | CP.PCM.PN ---
Subjective - Date & Time of Evaluation Date of Evaluation: 10/04/17 Time of Evaluation: 13:35 - Subjective Subjective: s/p partial finger amputation BP reasonable stable dialysis 5/3 Hg lower, on high dose EPO, IV Fe c/o finger pain, otherwise OK Objective - Vital Signs/Intake and Output Vital Signs (last 24 hours): Temp Pulse Resp BP Pulse Ox 98.1 F 90 20 155/68 H 99 10/04/17 08:30 10/04/17 08:30 10/04/17 08:30 10/04/17 10:24 10/04/17 08:30 Intake and Output: 10/04/17 10/04/17 06:59 18:59 Intake Total 300 Balance 300 - Medications Medications: Current Medications Acetaminophen (Tylenol 325mg Tab) 650 mg PO Q6 PRN PRN Reason: Pain, moderate (4-7) Last Admin: 10/04/17 01:49 Dose: 650 mg Amlodipine Besylate (Norvasc) 10 mg PO DAILY [facility] Last Admin: 10/04/17 10:24 Dose: 10 mg Aspirin (Ecotrin) 81 mg PO DAILY [facility] Last Admin: 10/02/17 09:50 Dose: 81 mg Benzocaine/Menthol (Cepacol Sore Throat) 1 poppy MT Q2H PRN PRN Reason: Sore Throat Last Admin: 09/27/17 04:37 Dose: 1 poppy Calcium Acetate (Phoslo) 667 mg PO TIDCC [facility] Last Admin: 10/04/17 12:56 Dose: 667 mg Carvedilol (Coreg) 12.5 mg PO BID [facility] Last Admin: 10/04/17 10:24 Dose: 12.5 mg Dextrose (Dextrose 50% Inj) 25 ml IV Q4H PRN PRN Reason: Hypoglycemia Last Admin: 09/18/17 00:23 Dose: 25 ml Diphenhydramine HCl (Benadryl) 25 mg PO HS [facility] Last Admin: 10/03/17 22:05 Dose: 25 mg Epoetin Alec (Procrit) 10,000 unit IV TTS [facility] Last Admin: 10/03/17 15:06 Dose: 10,000 unit Epoetin Alec (Procrit) 2,000 u IV TTS [facility] Last Admin: 10/03/17 15:07 Dose: 2,000 u Epoetin Alec (Procrit) 3,000 unit IV TTS [facility] Last Admin: 10/03/17 15:11 Dose: 3,000 unit Ferric Sodium Gluconate Complex (Ferrlecit) 125 mg IVPB TTS [facility] Stop: 10/18/17 10:01 Last Admin: 10/03/17 15:03 Dose: 125 mg Vancomycin/Sodium Chloride (Vancomycin 1 Gm/Ns 200 Ml) 1 gm in 200 mls @ 133 mls/hr IVPB TTS [facility] PRN Reason: Protocol Stop: 10/10/17 11:12 Last Admin: 10/03/17 15:02 Dose: 133 mls/hr Insulin Glargine (Lantus) 15 unit SC [facility] Last Admin: 10/03/17 22:05 Dose: 15 u Insulin Human Regular (Novolin R) 0 unit SC [facility] PRN Reason: Protocol Last Admin: 10/04/17 08:30 Dose: Not Given Oxycodone HCl (Oxycodone Immediate Release Tab) 10 mg PO Q8 [facility] Stop: 10/06/17 22:01 Last Admin: 10/04/17 06:30 Dose: 10 mg Pantoprazole Sodium (Protonix Ec Tab) 40 mg PO DAILY [facility] Last Admin: 10/04/17 10:24 Dose: 40 mg Rosuvastatin Calcium (Crestor) 10 mg PO [facility] Last Admin: 10/03/17 22:06 Dose: 10 mg Vitamin B Complex/Vit C/Folic Acid (Nephro-Cony) 1 tab PO DAILY [facility] Last Admin: 10/04/17 10:24 Dose: 1 tab - Labs Labs: 10/04/17 07:18 10/03/17 07:53 PT 11.6 SECONDS (9.7-12.2) 10/03/17 07:53 INR 1.0 10/03/17 07:53 APTT 36 SECONDS (21-34) H 10/03/17 07:53 - Constitutional Appears: No Acute Distress, Chronically Ill - Head Exam Head Exam: ATRAUMATIC, NORMAL INSPECTION - Eye Exam Eye Exam: EOMI, Normal appearance - Neck Exam Neck Exam: Normal Inspection. absent: Tenderness - Respiratory Exam Respiratory Exam: Clear to Ausculation Bilateral, NORMAL BREATHING PATTERN - Cardiovascular Exam Cardiovascular Exam: REGULAR RHYTHM, +S1 - GI/Abdominal Exam GI & Abdominal Exam: Soft. absent: Tenderness - Extremities Exam Extremities Exam: Normal Inspection. absent: Tenderness - Neurological Exam Neurological Exam: Awake, CN II-XII Intact - Skin Skin Exam: Dry, Warm Assessment and Plan (1) PVD (peripheral vascular disease) Status: Acute (2) S/P BKA (below knee amputation) bilateral Status: Acute (3) ESRD (end stage renal disease) Status: Acute (4) Type 2 diabetes mellitus with diabetic nephropathy Status: Acute - Assessment and Plan (Free Text) Plan: Wound care as per surgery Dialysis TTS EPO/ IV Fe monitor BP
[2017-10-04] MEDS: DiphenhydrAMINE 12.5 mg/5 ml LIQ UD (5 ml) PO SCH (21:59)
[2017-10-04] MEDS: (Lantus) Insulin Glargine, Recombinant SC SCH (22:54)
[2017-10-05] MEDS: oxyCODONE 10 mg Immediate Release Tab PO SCH ×4 (05:56→22:02)
[2017-10-05] MEDS: (Novolin R) Insulin Human Regular 100 units/ml vial SC SCH ×4 (08:50→21:37)
--- NOTE | 2017-10-05 09:58 | CP.PCM.PN ---
Subjective - Date & Time of Evaluation Date of Evaluation: 10/05/17 Time of Evaluation: 09:55 - Subjective Subjective: Notes reviewed Preparing to go to dialysis No overnight events Pain controlled Wants to eat breakfast before dialysis! ROS: 10 point negative other piper stated above and +fatigue Objective - Vital Signs/Intake and Output Vital Signs (last 24 hours): Temp Pulse Resp BP Pulse Ox 98.1 F 87 20 127/70 95 10/05/17 08:45 10/05/17 08:45 10/05/17 08:45 10/05/17 08:45 10/05/17 08:45 Intake and Output: 10/05/17 10/05/17 06:59 18:59 Intake Total 480 Balance 480 - Medications Medications: Current Medications Acetaminophen (Tylenol 325mg Tab) 650 mg PO Q6 PRN PRN Reason: Pain, moderate (4-7) Last Admin: 10/04/17 01:49 Dose: 650 mg Amlodipine Besylate (Norvasc) 10 mg PO DAILY [facility] Last Admin: 10/04/17 10:24 Dose: 10 mg Aspirin (Ecotrin) 81 mg PO DAILY [facility] Last Admin: 10/02/17 09:50 Dose: 81 mg Benzocaine/Menthol (Cepacol Sore Throat) 1 poppy MT Q2H PRN PRN Reason: Sore Throat Last Admin: 09/27/17 04:37 Dose: 1 poppy Calcium Acetate (Phoslo) 667 mg PO TIDCC [facility] Last Admin: 10/05/17 08:50 Dose: 667 mg Carvedilol (Coreg) 12.5 mg PO BID [facility] Last Admin: 10/04/17 18:59 Dose: 12.5 mg Dextrose (Dextrose 50% Inj) 25 ml IV Q4H PRN PRN Reason: Hypoglycemia Last Admin: 09/18/17 00:23 Dose: 25 ml Diphenhydramine HCl (Benadryl) 25 mg PO HS [facility] Last Admin: 10/04/17 21:59 Dose: 25 mg Epoetin Alec (Procrit) 10,000 unit IV TTS [facility] Last Admin: 10/03/17 15:06 Dose: 10,000 unit Epoetin Alec (Procrit) 2,000 u IV TTS [facility] Last Admin: 10/03/17 15:07 Dose: 2,000 u Epoetin Alec (Procrit) 3,000 unit IV TTS [facility] Last Admin: 10/03/17 15:11 Dose: 3,000 unit Ferric Sodium Gluconate Complex (Ferrlecit) 125 mg IVPB TTS [facility] Stop: 10/18/17 10:01 Last Admin: 10/03/17 15:03 Dose: 125 mg Vancomycin/Sodium Chloride (Vancomycin 1 Gm/Ns 200 Ml) 1 gm in 200 mls @ 133 mls/hr IVPB TTS [facility] PRN Reason: Protocol Stop: 10/10/17 11:12 Last Admin: 10/03/17 15:02 Dose: 133 mls/hr Insulin Glargine (Lantus) 15 unit SC [facility] Last Admin: 10/04/17 22:54 Dose: Not Given Insulin Human Regular (Novolin R) 0 unit SC [facility] PRN Reason: Protocol Last Admin: 10/05/17 08:50 Dose: Not Given Oxycodone HCl (Oxycodone Immediate Release Tab) 10 mg PO Q8 [facility] Stop: 10/06/17 22:01 Last Admin: 10/05/17 05:56 Dose: 10 mg Pantoprazole Sodium (Protonix Ec Tab) 40 mg PO DAILY [facility] Last Admin: 10/04/17 10:24 Dose: 40 mg Rosuvastatin Calcium (Crestor) 10 mg PO [facility] Last Admin: 10/04/17 21:59 Dose: 10 mg Vitamin B Complex/Vit C/Folic Acid (Nephro-Cony) 1 tab PO DAILY [facility] Last Admin: 10/04/17 10:24 Dose: 1 tab - Labs Labs: 10/04/17 07:18 10/03/17 07:53 PT 11.6 SECONDS (9.7-12.2) 10/03/17 07:53 INR 1.0 10/03/17 07:53 APTT 36 SECONDS (21-34) H 10/03/17 07:53 - Constitutional Appears: Non-toxic, Chronically Ill - Head Exam Head Exam: ATRAUMATIC, NORMAL INSPECTION - Eye Exam Eye Exam: EOMI, Normal appearance - ENT Exam ENT Exam: Mucous Membranes Moist, Normal Oropharynx - Neck Exam Neck Exam: absent: Lymphadenopathy, Thyromegaly - Respiratory Exam Respiratory Exam: absent: Rales, Rhonchi - Cardiovascular Exam Cardiovascular Exam: +S1, +S2. absent: Rubs - GI/Abdominal Exam GI & Abdominal Exam: Soft, Normal Bowel Sounds - Extremities Exam Extremities Exam: absent: Joint Swelling Additional comments: clean dressing at amputation (hand) site Clean dressings - Neurological Exam Neurological Exam: Alert, Oriented x3 Assessment and Plan (1) End stage renal disease Status: Acute (2) Osteomyelitis of finger of right hand Status: Acute (3) PVD (peripheral vascular disease) Status: Acute (4) S/P BKA (below knee amputation) bilateral Status: Acute (5) Anemia Status: Acute (6) CHF (congestive heart failure) Status: Acute (7) Diabetes mellitus Status: Acute (8) Dialysis patient Status: Acute - Assessment and Plan (Free Text) Plan: Dialysis today, uf as tolerated Bp controlled currently Continue wound care Abx per id Pain management Continue current care
[2017-10-05] MEDS: Multivitamin Vitamin B Complex (Nephro-Vite) Tab PO SCH (11:00)
[2017-10-05] MEDS: Pantoprazole 40 mg EC Tab PO SCH (11:00)
[2017-10-05] MEDS: Vancomycin 1 gm/NS 200 ml 1 GM/200 ML BAG IVPB SCH (14:25)
[2017-10-05] MEDS: Ferric Sodium Gluconat Complex 62.5 mg/5 ml Vial IVPB SCH (16:23)
[2017-10-05] MEDS: Epoetin Alfa 10,000 unit/ml Dialysis IV SCH (16:24)
[2017-10-05] MEDS: Epoetin Alfa Dialysis 2000 U/ML Inj IV SCH (16:25)
[2017-10-05] MEDS: Epoetin Alfa Dialysis 3000 UNIT/ML Inj IV SCH (16:25)
[2017-10-05] MEDS: DiphenhydrAMINE 12.5 mg/5 ml LIQ UD (5 ml) PO SCH (22:02)
[2017-10-05] MEDS: (Lantus) Insulin Glargine, Recombinant SC SCH ×2 (22:02→23:24)
--- NOTE | 2017-10-05 23:49 | CP.PCM.PN ---
Subjective - Date & Time of Evaluation Date of Evaluation: 10/05/17 Time of Evaluation: 23:48 - Subjective Subjective: AFEBRILE, C/O POST OPERATIVE PAIN PARTIAL AMPUTATED RT. INDEX FINGER PTS HAND IN DRESSING C/D/I. S/P HD TODAY SATURDAY. FATIGUED. Objective - Vital Signs/Intake and Output Vital Signs (last 24 hours): Temp Pulse Resp BP Pulse Ox 97.8 F 82 16 167/80 H 96 10/05/17 17:20 10/05/17 17:20 10/05/17 17:20 10/05/17 18:17 10/05/17 17:20 - Medications Medications: Current Medications Acetaminophen (Tylenol 325mg Tab) 650 mg PO Q6 PRN PRN Reason: Pain, moderate (4-7) Last Admin: 10/04/17 01:49 Dose: 650 mg Amlodipine Besylate (Norvasc) 10 mg PO DAILY [facility] Last Admin: 10/05/17 14:27 Dose: Not Given Aspirin (Ecotrin) 81 mg PO DAILY [facility] Last Admin: 10/02/17 09:50 Dose: 81 mg Benzocaine/Menthol (Cepacol Sore Throat) 1 poppy MT Q2H PRN PRN Reason: Sore Throat Last Admin: 09/27/17 04:37 Dose: 1 poppy Calcium Acetate (Phoslo) 667 mg PO TIDCC [facility] Last Admin: 10/05/17 18:18 Dose: 667 mg Carvedilol (Coreg) 12.5 mg PO BID [facility] Last Admin: 10/05/17 18:17 Dose: 12.5 mg Dextrose (Dextrose 50% Inj) 25 ml IV Q4H PRN PRN Reason: Hypoglycemia Last Admin: 09/18/17 00:23 Dose: 25 ml Diphenhydramine HCl (Benadryl) 25 mg PO HS [facility] Last Admin: 10/05/17 22:02 Dose: 25 mg Epoetin Alec (Procrit) 10,000 unit IV TTS [facility] Last Admin: 10/05/17 16:24 Dose: 10,000 unit Epoetin Alec (Procrit) 2,000 u IV TTS [facility] Last Admin: 10/05/17 16:25 Dose: 2,000 u Epoetin Alec (Procrit) 3,000 unit IV TTS [facility] Last Admin: 10/05/17 16:25 Dose: 3,000 unit Famotidine (Pepcid) 20 mg PO DAILY [facility] Ferric Sodium Gluconate Complex (Ferrlecit) 125 mg IVPB TTS [facility] Stop: 10/18/17 10:01 Last Admin: 10/05/17 16:23 Dose: 125 mg Vancomycin/Sodium Chloride (Vancomycin 1 Gm/Ns 200 Ml) 1 gm in 200 mls @ 133 mls/hr IVPB TTS [facility] PRN Reason: Protocol Stop: 10/10/17 11:12 Last Admin: 10/05/17 14:25 Dose: 133 mls/hr Insulin Human Regular (Novolin R) 0 unit SC ACHS [facility] PRN Reason: Protocol Last Admin: 10/05/17 21:37 Dose: Not Given Oxycodone HCl (Oxycodone Immediate Release Tab) 10 mg PO Q8 [facility] Stop: 10/06/17 22:01 Last Admin: 10/05/17 22:02 Dose: 10 mg Rosuvastatin Calcium (Crestor) 10 mg PO HS [facility] Last Admin: 10/05/17 22:02 Dose: 10 mg Vitamin B Complex/Vit C/Folic Acid (Nephro-Cony) 1 tab PO DAILY [facility] Last Admin: 10/05/17 11:00 Dose: 1 tab - Labs Labs: 10/04/17 07:18 10/03/17 07:53 PT 11.6 SECONDS (9.7-12.2) 10/03/17 07:53 INR 1.0 10/03/17 07:53 APTT 36 SECONDS (21-34) H 10/03/17 07:53 - Constitutional Appears: No Acute Distress - Head Exam Head Exam: NORMAL INSPECTION - Eye Exam Eye Exam: EOMI, PERRL - ENT Exam ENT Exam: Normal Oropharynx - Neck Exam Neck Exam: Normal Inspection - Respiratory Exam Respiratory Exam: Clear to Ausculation Bilateral, NORMAL BREATHING PATTERN - Cardiovascular Exam Cardiovascular Exam: REGULAR RHYTHM, +S1, +S2 - GI/Abdominal Exam GI & Abdominal Exam: Soft, Normal Bowel Sounds. absent: Tenderness Additional comments: OPERATIVE SITE HEALING WELL. - Extremities Exam Additional comments: B/L AKA. - Neurological Exam Neurological Exam: Awake, CN II-XII Intact, Oriented x3 - Psychiatric Exam Psychiatric exam: Depressed - Skin Skin Exam: Normal Color, Warm Assessment and Plan (1) Abscess of finger of right hand Assessment & Plan: CONTINUE IV VANCOMYCIN 1GM POST HD TTS X 2 MORE DOSES 10/08, 10/10/17 [facility] PER ORTHO. Status: Acute (2) ESRD (end stage renal disease) Status: Acute (3) PVD (peripheral vascular disease) Status: Acute (4) S/P BKA (below knee amputation) bilateral Status: Acute (5) Diabetes mellitus Status: Acute (6) HTN (hypertension) Status: Acute (7) History of colostomy reversal Status: Acute
[2017-10-06] MEDS: oxyCODONE 10 mg Immediate Release Tab PO SCH ×3 (05:22→22:05)
[2017-10-06] MEDS: (Novolin R) Insulin Human Regular 100 units/ml vial SC SCH ×4 (08:51→22:06)
[2017-10-06] MEDS: Multivitamin Vitamin B Complex (Nephro-Vite) Tab PO SCH (11:49)
[2017-10-06] MEDS: DiphenhydrAMINE 12.5 mg/5 ml LIQ UD (5 ml) PO SCH (22:05)
[2017-10-07] MEDS: (Novolin R) Insulin Human Regular 100 units/ml vial SC SCH ×4 (08:30→22:44)
[2017-10-07] MEDS ORDERED: Oxycodone/Acetaminophen 5/325 mg Tab PO PRN (08:37)
--- NOTE | 2017-10-07 09:27 | CP.PCM.PN ---
Subjective - Date & Time of Evaluation Date of Evaluation: 10/07/17 Time of Evaluation: 09:25 - Subjective Subjective: Patient complaining of pain in finger, but is due for pain medication. No new complaints. Objective - Vital Signs/Intake and Output Vital Signs (last 24 hours): Temp Pulse Resp BP Pulse Ox 98.4 F 89 20 157/77 H 99 10/07/17 07:49 10/07/17 07:49 10/07/17 07:49 10/07/17 07:49 10/07/17 07:49 - Medications Medications: Current Medications Acetaminophen (Tylenol 325mg Tab) 650 mg PO Q6 PRN PRN Reason: Pain, moderate (4-7) Last Admin: 10/04/17 01:49 Dose: 650 mg Amlodipine Besylate (Norvasc) 10 mg PO DAILY [facility] Last Admin: 10/06/17 10:56 Dose: 10 mg Aspirin (Ecotrin) 81 mg PO DAILY [facility] Last Admin: 10/06/17 10:23 Dose: 81 mg Benzocaine/Menthol (Cepacol Sore Throat) 1 poppy MT Q2H PRN PRN Reason: Sore Throat Last Admin: 09/27/17 04:37 Dose: 1 poppy Calcium Acetate (Phoslo) 667 mg PO TIDCC [facility] Last Admin: 10/07/17 08:31 Dose: 667 mg Carvedilol (Coreg) 12.5 mg PO BID [facility] Last Admin: 10/06/17 17:41 Dose: 12.5 mg Dextrose (Dextrose 50% Inj) 25 ml IV Q4H PRN PRN Reason: Hypoglycemia Last Admin: 09/18/17 00:23 Dose: 25 ml Diphenhydramine HCl (Benadryl) 25 mg PO HS [facility] Last Admin: 10/06/17 22:05 Dose: 25 mg Epoetin Alec (Procrit) 10,000 unit IV TTS [facility] Last Admin: 10/05/17 16:24 Dose: 10,000 unit Epoetin Alec (Procrit) 2,000 u IV TTS [facility] Last Admin: 10/05/17 16:25 Dose: 2,000 u Epoetin Alec (Procrit) 3,000 unit IV TTS [facility] Last Admin: 10/05/17 16:25 Dose: 3,000 unit Famotidine (Pepcid) 20 mg PO DAILY [facility] Last Admin: 10/06/17 10:21 Dose: 20 mg Ferric Sodium Gluconate Complex (Ferrlecit) 125 mg IVPB TTS [facility] Stop: 10/18/17 10:01 Last Admin: 10/05/17 16:23 Dose: 125 mg Vancomycin/Sodium Chloride (Vancomycin 1 Gm/Ns 200 Ml) 1 gm in 200 mls @ 133 mls/hr IVPB TTS [facility] PRN Reason: Protocol Stop: 10/10/17 11:12 Last Admin: 10/05/17 14:25 Dose: 133 mls/hr Insulin Human Regular (Novolin R) 0 unit SC ACHS [facility] PRN Reason: Protocol Last Admin: 10/07/17 08:30 Dose: Not Given Oxycodone HCl (Oxycodone Immediate Release Tab) 10 mg PO Q8H PRN PRN Reason: Pain, moderate (4-7) Rosuvastatin Calcium (Crestor) 10 mg PO HS [facility] Last Admin: 10/06/17 22:06 Dose: 10 mg Vitamin B Complex/Vit C/Folic Acid (Nephro-Cony) 1 tab PO DAILY [facility] Last Admin: 10/06/17 11:49 Dose: 1 tab - Labs Labs: 10/04/17 07:18 10/03/17 07:53 PT 11.6 SECONDS (9.7-12.2) 10/03/17 07:53 INR 1.0 10/03/17 07:53 APTT 36 SECONDS (21-34) H 10/03/17 07:53 - Extremities Exam Additional comments: Incision site intact, healing well, no drainage. noted swelling and ecchymosis dorsally.telfa/kerlex applied Assessment and Plan (1) Osteomyelitis of finger of right hand Assessment & Plan: POD#4 s/p right index finger partial amputation ortho stable for d/c home f/u Dr. Luo in office within 1 week keep incision dry and covered d/w Dr. Luo, agrees with above Status: Acute (2) Abscess of finger of right hand Status: Acute
[2017-10-07] MEDS: oxyCODONE 10 mg Immediate Release Tab PO PRN ×2 (09:35→21:34)
[2017-10-07] MEDS: Multivitamin Vitamin B Complex (Nephro-Vite) Tab PO SCH (10:27)
--- NOTE | 2017-10-07 12:22 | CP.PCM.PN ---
Subjective - Date & Time of Evaluation Date of Evaluation: 10/07/17 Time of Evaluation: 12:20 - Subjective Subjective: alert; still with significant pain amputated finger area HTN mod. elevated- continue to monitor stable HD 5/ eating better no other complaint Objective - Vital Signs/Intake and Output Vital Signs (last 24 hours): Temp Pulse Resp BP Pulse Ox 98.4 F 89 20 157/77 H 99 10/07/17 07:49 10/07/17 07:49 10/07/17 07:49 10/07/17 10:26 10/07/17 07:49 - Medications Medications: Current Medications Acetaminophen (Tylenol 325mg Tab) 650 mg PO Q6 PRN PRN Reason: Pain, moderate (4-7) Last Admin: 10/04/17 01:49 Dose: 650 mg Amlodipine Besylate (Norvasc) 10 mg PO DAILY [facility] Last Admin: 10/07/17 10:27 Dose: 10 mg Aspirin (Ecotrin) 81 mg PO DAILY [facility] Last Admin: 10/07/17 10:27 Dose: 81 mg Benzocaine/Menthol (Cepacol Sore Throat) 1 poppy MT Q2H PRN PRN Reason: Sore Throat Last Admin: 09/27/17 04:37 Dose: 1 poppy Calcium Acetate (Phoslo) 667 mg PO TIDCC [facility] Last Admin: 10/07/17 08:31 Dose: 667 mg Carvedilol (Coreg) 12.5 mg PO BID [facility] Last Admin: 10/07/17 10:26 Dose: 12.5 mg Dextrose (Dextrose 50% Inj) 25 ml IV Q4H PRN PRN Reason: Hypoglycemia Last Admin: 09/18/17 00:23 Dose: 25 ml Diphenhydramine HCl (Benadryl) 25 mg PO HS [facility] Last Admin: 10/06/17 22:05 Dose: 25 mg Epoetin Alec (Procrit) 10,000 unit IV TTS [facility] Last Admin: 10/05/17 16:24 Dose: 10,000 unit Epoetin Alec (Procrit) 2,000 u IV TTS [facility] Last Admin: 10/05/17 16:25 Dose: 2,000 u Epoetin Alec (Procrit) 3,000 unit IV TTS [facility] Last Admin: 10/05/17 16:25 Dose: 3,000 unit Famotidine (Pepcid) 20 mg PO DAILY [facility] Last Admin: 10/07/17 10:27 Dose: 20 mg Ferric Sodium Gluconate Complex (Ferrlecit) 125 mg IVPB TTS [facility] Stop: 10/18/17 10:01 Last Admin: 10/05/17 16:23 Dose: 125 mg Vancomycin/Sodium Chloride (Vancomycin 1 Gm/Ns 200 Ml) 1 gm in 200 mls @ 133 mls/hr IVPB TTS [facility] PRN Reason: Protocol Stop: 10/10/17 11:12 Last Admin: 10/05/17 14:25 Dose: 133 mls/hr Insulin Human Regular (Novolin R) 0 unit SC ACHS [facility] PRN Reason: Protocol Last Admin: 10/07/17 08:30 Dose: Not Given Oxycodone HCl (Oxycodone Immediate Release Tab) 10 mg PO Q8H PRN PRN Reason: Pain, moderate (4-7) Last Admin: 10/07/17 09:35 Dose: 10 mg Rosuvastatin Calcium (Crestor) 10 mg PO [facility] Last Admin: 10/06/17 22:06 Dose: 10 mg Vitamin B Complex/Vit C/Folic Acid (Nephro-Cony) 1 tab PO DAILY [facility] Last Admin: 10/07/17 10:27 Dose: 1 tab - Labs Labs: 10/04/17 07:18 10/03/17 07:53 PT 11.6 SECONDS (9.7-12.2) 10/03/17 07:53 INR 1.0 10/03/17 07:53 APTT 36 SECONDS (21-34) H 10/03/17 07:53 - Constitutional Appears: No Acute Distress, Chronically Ill - Head Exam Head Exam: ATRAUMATIC, NORMAL INSPECTION - Eye Exam Eye Exam: EOMI, Normal appearance - Neck Exam Neck Exam: Normal Inspection. absent: Tenderness - Respiratory Exam Respiratory Exam: Clear to Ausculation Bilateral, NORMAL BREATHING PATTERN - Cardiovascular Exam Cardiovascular Exam: REGULAR RHYTHM, +S1 - GI/Abdominal Exam GI & Abdominal Exam: Soft. absent: Tenderness - Neurological Exam Neurological Exam: Alert, CN II-XII Intact - Skin Skin Exam: Dry, Warm Assessment and Plan (1) PVD (peripheral vascular disease) Status: Acute (2) S/P BKA (below knee amputation) bilateral Status: Acute (3) ESRD (end stage renal disease) Status: Acute (4) Type 2 diabetes mellitus with diabetic nephropathy Status: Acute - Assessment and Plan (Free Text) Plan: same dialysis TTS monitor BP wound care
[2017-10-07] MEDS: DiphenhydrAMINE 12.5 mg/5 ml LIQ UD (5 ml) PO SCH (21:34)
[2017-10-08] MEDS: oxyCODONE 10 mg Immediate Release Tab PO PRN ×2 (07:10→14:14)
[2017-10-08] MEDS: (Novolin R) Insulin Human Regular 100 units/ml vial SC SCH ×4 (07:35→21:20)
[2017-10-08] MEDS: Multivitamin Vitamin B Complex (Nephro-Vite) Tab PO SCH (09:15)
[2017-10-08] MEDS: Vancomycin 1 gm/NS 200 ml 1 GM/200 ML BAG IVPB SCH (11:42)
[2017-10-08] MEDS: Epoetin Alfa 10,000 unit/ml Dialysis IV SCH (11:45)
[2017-10-08] MEDS: Epoetin Alfa Dialysis 2000 U/ML Inj IV SCH (11:46)
[2017-10-08] MEDS: Epoetin Alfa Dialysis 3000 UNIT/ML Inj IV SCH (11:46)
[2017-10-08] MEDS: Ferric Sodium Gluconat Complex 62.5 mg/5 ml Vial IVPB SCH (11:46)
--- NOTE | 2017-10-08 12:33 | CP.PCM.PN ---
Subjective - Date & Time of Evaluation Date of Evaluation: 10/08/17 Time of Evaluation: 12:32 - Subjective Subjective: seen in hd, estimated uf 1.5L hgb 8.0 mg/dl denies any n/v/d/sob/cp/dizziness/headache/fevers/chills rt finger pain controlled Objective - Vital Signs/Intake and Output Vital Signs (last 24 hours): Temp Pulse Resp BP Pulse Ox 96.5 F L 81 18 156/71 H 99 10/08/17 09:55 10/08/17 09:55 10/08/17 09:55 10/08/17 11:05 10/08/17 09:55 Intake and Output: 10/08/17 10/08/17 06:59 18:59 Intake Total 400 Balance 400 - Medications Medications: Current Medications Acetaminophen (Tylenol 325mg Tab) 650 mg PO Q6 PRN PRN Reason: Pain, moderate (4-7) Last Admin: 10/04/17 01:49 Dose: 650 mg Amlodipine Besylate (Norvasc) 10 mg PO DAILY [facility] Last Admin: 10/07/17 10:27 Dose: 10 mg Aspirin (Ecotrin) 81 mg PO DAILY [facility] Last Admin: 10/08/17 09:15 Dose: 81 mg Benzocaine/Menthol (Cepacol Sore Throat) 1 poppy MT Q2H PRN PRN Reason: Sore Throat Last Admin: 09/27/17 04:37 Dose: 1 poppy Calcium Acetate (Phoslo) 667 mg PO TIDCC [facility] Last Admin: 10/08/17 09:15 Dose: 667 mg Carvedilol (Coreg) 12.5 mg PO BID [facility] Last Admin: 10/07/17 17:22 Dose: 12.5 mg Dextrose (Dextrose 50% Inj) 25 ml IV Q4H PRN PRN Reason: Hypoglycemia Last Admin: 09/18/17 00:23 Dose: 25 ml Diphenhydramine HCl (Benadryl) 25 mg PO HS [facility] Last Admin: 10/07/17 21:34 Dose: 25 mg Epoetin Alec (Procrit) 10,000 unit IV TTS [facility] Last Admin: 10/08/17 11:45 Dose: 10,000 unit Epoetin Alec (Procrit) 2,000 u IV TTS [facility] Last Admin: 10/08/17 11:46 Dose: 2,000 u Epoetin Alec (Procrit) 3,000 unit IV TTS [facility] Last Admin: 10/08/17 11:46 Dose: 3,000 unit Famotidine (Pepcid) 20 mg PO DAILY [facility] Last Admin: 10/08/17 09:15 Dose: 20 mg Ferric Sodium Gluconate Complex (Ferrlecit) 125 mg IVPB TTS [facility] Stop: 10/18/17 10:01 Last Admin: 10/08/17 11:46 Dose: 125 mg Insulin Human Regular (Novolin R) 0 unit SC ACHS [facility] PRN Reason: Protocol Last Admin: 10/07/17 22:44 Dose: Not Given Oxycodone HCl (Oxycodone Immediate Release Tab) 10 mg PO Q8H PRN PRN Reason: Pain, moderate (4-7) Last Admin: 10/08/17 07:10 Dose: 10 mg Rosuvastatin Calcium (Crestor) 10 mg PO HS [facility] Last Admin: 10/07/17 21:33 Dose: 10 mg Vitamin B Complex/Vit C/Folic Acid (Nephro-Cony) 1 tab PO DAILY [facility] Last Admin: 10/08/17 09:15 Dose: 1 tab - Labs Labs: 10/04/17 07:18 10/03/17 07:53 PT 11.6 SECONDS (9.7-12.2) 10/03/17 07:53 INR 1.0 10/03/17 07:53 APTT 36 SECONDS (21-34) H 10/03/17 07:53 - Constitutional Appears: No Acute Distress, Chronically Ill - Head Exam Head Exam: NORMAL INSPECTION, NORMOCEPHALIC - Eye Exam Eye Exam: Normal appearance, PERRL - ENT Exam ENT Exam: Mucous Membranes Moist, Normal Exam - Neck Exam Neck Exam: Full ROM, Normal Inspection - Respiratory Exam Respiratory Exam: Clear to Ausculation Bilateral, NORMAL BREATHING PATTERN - Cardiovascular Exam Cardiovascular Exam: REGULAR RHYTHM, RRR - GI/Abdominal Exam GI & Abdominal Exam: Distended, Soft - Extremities Exam Extremities Exam: Normal Inspection (b/l amputee) - Neurological Exam Neurological Exam: Alert, Awake, Oriented x3 - Psychiatric Exam Psychiatric exam: Normal Affect, Normal Mood - Skin Skin Exam: Dry, Normal Color, Warm Assessment and Plan (1) End stage renal disease Status: Acute (2) Hypotension Status: Acute (3) PVD (peripheral vascular disease) Status: Acute (4) S/P BKA (below knee amputation) bilateral Status: Acute (5) Colostomy complication, unspecified Status: Acute - Assessment and Plan (Free Text) Assessment: maintain hd tts anabela w/ hd supportive care
[2017-10-08 16:41] VITALS: RESP 20
--- NOTE | 2017-10-08 19:12 | CP.PCM.PN ---
Subjective - Date & Time of Evaluation Date of Evaluation: 10/07/17 Time of Evaluation: 19:12 - Subjective Subjective: Patient is feeling slightly better. The pain is better. Patient is tolerating the dialysis. She is having regular bowel movements. I discussed with the patient regarding the discharge plan. She will be getting the hemodialysis, and after the hemodialysis tomorrow patient will be discharged home Objective - Vital Signs/Intake and Output Vital Signs (last 24 hours): Temp Pulse Resp BP Pulse Ox 97.9 F 53 L 20 133/63 98 10/08/17 15:00 10/08/17 15:00 10/08/17 15:00 10/08/17 17:48 10/08/17 15:00 - Medications Medications: Current Medications Acetaminophen (Tylenol 325mg Tab) 650 mg PO Q6 PRN PRN Reason: Pain, moderate (4-7) Last Admin: 10/04/17 01:49 Dose: 650 mg Amlodipine Besylate (Norvasc) 10 mg PO DAILY [facility] Last Admin: 10/08/17 10:05 Dose: Not Given Aspirin (Ecotrin) 81 mg PO DAILY [facility] Last Admin: 10/08/17 09:15 Dose: 81 mg Benzocaine/Menthol (Cepacol Sore Throat) 1 poppy MT Q2H PRN PRN Reason: Sore Throat Last Admin: 09/27/17 04:37 Dose: 1 poppy Calcium Acetate (Phoslo) 667 mg PO TIDCC [facility] Last Admin: 10/08/17 17:48 Dose: 667 mg Carvedilol (Coreg) 12.5 mg PO BID [facility] Last Admin: 10/08/17 17:48 Dose: 12.5 mg Dextrose (Dextrose 50% Inj) 25 ml IV Q4H PRN PRN Reason: Hypoglycemia Last Admin: 09/18/17 00:23 Dose: 25 ml Diphenhydramine HCl (Benadryl) 25 mg PO HS [facility] Last Admin: 10/07/17 21:34 Dose: 25 mg Epoetin Alec (Procrit) 10,000 unit IV TTS [facility] Last Admin: 10/08/17 11:45 Dose: 10,000 unit Epoetin Alec (Procrit) 2,000 u IV TTS [facility] Last Admin: 10/08/17 11:46 Dose: 2,000 u Epoetin Alec (Procrit) 3,000 unit IV TTS [facility] Last Admin: 10/08/17 11:46 Dose: 3,000 unit Famotidine (Pepcid) 20 mg PO DAILY [facility] Last Admin: 10/08/17 09:15 Dose: 20 mg Ferric Sodium Gluconate Complex (Ferrlecit) 125 mg IVPB TTS [facility] Stop: 10/18/17 10:01 Last Admin: 10/08/17 11:46 Dose: 125 mg Insulin Human Regular (Novolin R) 0 unit SC ACHS [facility] PRN Reason: Protocol Last Admin: 10/08/17 16:30 Dose: Not Given Oxycodone HCl (Oxycodone Immediate Release Tab) 10 mg PO Q8H PRN PRN Reason: Pain, moderate (4-7) Last Admin: 10/08/17 14:14 Dose: 10 mg Rosuvastatin Calcium (Crestor) 10 mg PO [facility] Last Admin: 10/07/17 21:33 Dose: 10 mg Vitamin B Complex/Vit C/Folic Acid (Nephro-Cony) 1 tab PO DAILY [facility] Last Admin: 10/08/17 09:15 Dose: 1 tab - Labs Labs: 10/04/17 07:18 10/03/17 07:53 PT 11.6 SECONDS (9.7-12.2) 10/03/17 07:53 INR 1.0 10/03/17 07:53 APTT 36 SECONDS (21-34) H 10/03/17 07:53
--- NOTE | 2017-10-08 19:13 | CP.PCM.PN ---
Subjective - Date & Time of Evaluation Date of Evaluation: 10/08/17 Time of Evaluation: 19:13 - Subjective Subjective: Patient is currently doing well. She denies any chest pain. She received hemodialysis today. Feeling better. Patient is clinically improving. Also participating in physical therapy. Possibly discharge plan tomorrow home. She'll be getting the hemodialysis on an outpatient. Objective - Vital Signs/Intake and Output Vital Signs (last 24 hours): Temp Pulse Resp BP Pulse Ox 97.9 F 53 L 20 133/63 98 10/08/17 15:00 10/08/17 15:00 10/08/17 15:00 10/08/17 17:48 10/08/17 15:00 - Medications Medications: Current Medications Acetaminophen (Tylenol 325mg Tab) 650 mg PO Q6 PRN PRN Reason: Pain, moderate (4-7) Last Admin: 10/04/17 01:49 Dose: 650 mg Amlodipine Besylate (Norvasc) 10 mg PO DAILY [facility] Last Admin: 10/08/17 10:05 Dose: Not Given Aspirin (Ecotrin) 81 mg PO DAILY [facility] Last Admin: 10/08/17 09:15 Dose: 81 mg Benzocaine/Menthol (Cepacol Sore Throat) 1 poppy MT Q2H PRN PRN Reason: Sore Throat Last Admin: 09/27/17 04:37 Dose: 1 poppy Calcium Acetate (Phoslo) 667 mg PO TIDCC [facility] Last Admin: 10/08/17 17:48 Dose: 667 mg Carvedilol (Coreg) 12.5 mg PO BID [facility] Last Admin: 10/08/17 17:48 Dose: 12.5 mg Dextrose (Dextrose 50% Inj) 25 ml IV Q4H PRN PRN Reason: Hypoglycemia Last Admin: 09/18/17 00:23 Dose: 25 ml Diphenhydramine HCl (Benadryl) 25 mg PO HS [facility] Last Admin: 10/07/17 21:34 Dose: 25 mg Epoetin Alec (Procrit) 10,000 unit IV TTS [facility] Last Admin: 10/08/17 11:45 Dose: 10,000 unit Epoetin Alec (Procrit) 2,000 u IV TTS [facility] Last Admin: 10/08/17 11:46 Dose: 2,000 u Epoetin Alec (Procrit) 3,000 unit IV TTS [facility] Last Admin: 10/08/17 11:46 Dose: 3,000 unit Famotidine (Pepcid) 20 mg PO DAILY [facility] Last Admin: 10/08/17 09:15 Dose: 20 mg Ferric Sodium Gluconate Complex (Ferrlecit) 125 mg IVPB TTS [facility] Stop: 10/18/17 10:01 Last Admin: 10/08/17 11:46 Dose: 125 mg Insulin Human Regular (Novolin R) 0 unit SC ACHS [facility] PRN Reason: Protocol Last Admin: 10/08/17 16:30 Dose: Not Given Oxycodone HCl (Oxycodone Immediate Release Tab) 10 mg PO Q8H PRN PRN Reason: Pain, moderate (4-7) Last Admin: 10/08/17 14:14 Dose: 10 mg Rosuvastatin Calcium (Crestor) 10 mg PO [facility] Last Admin: 10/07/17 21:33 Dose: 10 mg Vitamin B Complex/Vit C/Folic Acid (Nephro-Cony) 1 tab PO DAILY [facility] Last Admin: 10/08/17 09:15 Dose: 1 tab - Labs Labs: 10/04/17 07:18 10/03/17 07:53 PT 11.6 SECONDS (9.7-12.2) 10/03/17 07:53 INR 1.0 10/03/17 07:53 APTT 36 SECONDS (21-34) H 10/03/17 07:53
--- NOTE | 2017-10-08 19:19 | CP.PCM.PN ---
Subjective - Date & Time of Evaluation Date of Evaluation: 09/26/17 Time of Evaluation: 19:18 - Subjective Subjective: Patient is a hemodialysis today. Currently she is okay. Complaining of pain in the right index finger. Spoke to the hand specialist. Currently on antibiotic. Objective - Vital Signs/Intake and Output Vital Signs (last 24 hours): Temp Pulse Resp BP Pulse Ox 97.9 F 53 L 20 133/63 98 10/08/17 15:00 10/08/17 15:00 10/08/17 15:00 10/08/17 17:48 10/08/17 15:00 - Medications Medications: Current Medications Acetaminophen (Tylenol 325mg Tab) 650 mg PO Q6 PRN PRN Reason: Pain, moderate (4-7) Last Admin: 10/04/17 01:49 Dose: 650 mg Amlodipine Besylate (Norvasc) 10 mg PO DAILY [facility] Last Admin: 10/08/17 10:05 Dose: Not Given Aspirin (Ecotrin) 81 mg PO DAILY [facility] Last Admin: 10/08/17 09:15 Dose: 81 mg Benzocaine/Menthol (Cepacol Sore Throat) 1 poppy MT Q2H PRN PRN Reason: Sore Throat Last Admin: 09/27/17 04:37 Dose: 1 poppy Calcium Acetate (Phoslo) 667 mg PO TIDCC [facility] Last Admin: 10/08/17 17:48 Dose: 667 mg Carvedilol (Coreg) 12.5 mg PO BID [facility] Last Admin: 10/08/17 17:48 Dose: 12.5 mg Dextrose (Dextrose 50% Inj) 25 ml IV Q4H PRN PRN Reason: Hypoglycemia Last Admin: 09/18/17 00:23 Dose: 25 ml Diphenhydramine HCl (Benadryl) 25 mg PO HS [facility] Last Admin: 10/07/17 21:34 Dose: 25 mg Epoetin Alec (Procrit) 10,000 unit IV TTS [facility] Last Admin: 10/08/17 11:45 Dose: 10,000 unit Epoetin Alec (Procrit) 2,000 u IV TTS [facility] Last Admin: 10/08/17 11:46 Dose: 2,000 u Epoetin Alec (Procrit) 3,000 unit IV TTS [facility] Last Admin: 10/08/17 11:46 Dose: 3,000 unit Famotidine (Pepcid) 20 mg PO DAILY [facility] Last Admin: 10/08/17 09:15 Dose: 20 mg Ferric Sodium Gluconate Complex (Ferrlecit) 125 mg IVPB TTS [facility] Stop: 10/18/17 10:01 Last Admin: 10/08/17 11:46 Dose: 125 mg Insulin Human Regular (Novolin R) 0 unit SC ACHS GUILLERMO PRN Reason: Protocol Last Admin: 10/08/17 16:30 Dose: Not Given Oxycodone HCl (Oxycodone Immediate Release Tab) 10 mg PO Q8H PRN PRN Reason: Pain, moderate (4-7) Last Admin: 10/08/17 14:14 Dose: 10 mg Rosuvastatin Calcium (Crestor) 10 mg PO [facility] Last Admin: 10/07/17 21:33 Dose: 10 mg Vitamin B Complex/Vit C/Folic Acid (Nephro-Cony) 1 tab PO DAILY [facility] Last Admin: 10/08/17 09:15 Dose: 1 tab - Labs Labs: 10/04/17 07:18 10/03/17 07:53 PT 11.6 SECONDS (9.7-12.2) 10/03/17 07:53 INR 1.0 10/03/17 07:53 APTT 36 SECONDS (21-34) H 10/03/17 07:53
--- NOTE | 2017-10-08 19:20 | CP.PCM.PN ---
Subjective - Date & Time of Evaluation Date of Evaluation: 09/29/17 Time of Evaluation: 19:20 - Subjective Subjective: Patient is very concerned about the index finger. Pain noted. She is crying at times. Receiving hemodialysis On examination: Vital signs stable. Chest good air entry irregular heart sounds nontender abdomen Patient had an episode of bleeding rectally. Stable otherwise. Hemoglobin is stable. We will continue to currently monitor the hemoglobin. 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 Objective - Vital Signs/Intake and Output Vital Signs (last 24 hours): Temp Pulse Resp BP Pulse Ox 97.9 F 53 L 20 133/63 98 10/08/17 15:00 10/08/17 15:00 10/08/17 15:00 10/08/17 17:48 10/08/17 15:00 - Medications Medications: Current Medications Acetaminophen (Tylenol 325mg Tab) 650 mg PO Q6 PRN PRN Reason: Pain, moderate (4-7) Last Admin: 10/04/17 01:49 Dose: 650 mg Amlodipine Besylate (Norvasc) 10 mg PO DAILY [facility] Last Admin: 10/08/17 10:05 Dose: Not Given Aspirin (Ecotrin) 81 mg PO DAILY [facility] Last Admin: 10/08/17 09:15 Dose: 81 mg Benzocaine/Menthol (Cepacol Sore Throat) 1 poppy MT Q2H PRN PRN Reason: Sore Throat Last Admin: 09/27/17 04:37 Dose: 1 poppy Calcium Acetate (Phoslo) 667 mg PO TIDCC [facility] Last Admin: 10/08/17 17:48 Dose: 667 mg Carvedilol (Coreg) 12.5 mg PO BID [facility] Last Admin: 10/08/17 17:48 Dose: 12.5 mg Dextrose (Dextrose 50% Inj) 25 ml IV Q4H PRN PRN Reason: Hypoglycemia Last Admin: 09/18/17 00:23 Dose: 25 ml Diphenhydramine HCl (Benadryl) 25 mg PO HS [facility] Last Admin: 10/07/17 21:34 Dose: 25 mg Epoetin Alec (Procrit) 10,000 unit IV TTS [facility] Last Admin: 10/08/17 11:45 Dose: 10,000 unit Epoetin Alec (Procrit) 2,000 u IV TTS [facility] Last Admin: 10/08/17 11:46 Dose: 2,000 u Epoetin Alec (Procrit) 3,000 unit IV TTS [facility] Last Admin: 10/08/17 11:46 Dose: 3,000 unit Famotidine (Pepcid) 20 mg PO DAILY [facility] Last Admin: 10/08/17 09:15 Dose: 20 mg Ferric Sodium Gluconate Complex (Ferrlecit) 125 mg IVPB TTS [facility] Stop: 10/18/17 10:01 Last Admin: 10/08/17 11:46 Dose: 125 mg Insulin Human Regular (Novolin R) 0 unit SC ACHS [facility] PRN Reason: Protocol Last Admin: 10/08/17 16:30 Dose: Not Given Oxycodone HCl (Oxycodone Immediate Release Tab) 10 mg PO Q8H PRN PRN Reason: Pain, moderate (4-7) Last Admin: 10/08/17 14:14 Dose: 10 mg Rosuvastatin Calcium (Crestor) 10 mg PO HS [facility] Last Admin: 10/07/17 21:33 Dose: 10 mg Vitamin B Complex/Vit C/Folic Acid (Nephro-Cony) 1 tab PO DAILY [facility] Last Admin: 10/08/17 09:15 Dose: 1 tab - Labs Labs: 10/04/17 07:18 10/03/17 07:53 PT 11.6 SECONDS (9.7-12.2) 10/03/17 07:53 INR 1.0 10/03/17 07:53 APTT 36 SECONDS (21-34) H 10/03/17 07:53
--- NOTE | 2017-10-08 19:20 | CP.PCM.PN ---
Subjective - Date & Time of Evaluation Date of Evaluation: 09/28/17 Time of Evaluation: 19:19 - Subjective Subjective: Patient is very concerned about the index finger. Pain noted. She is crying at times. Receiving hemodialysis On examination: Vital signs stable. Chest good air entry irregular heart sounds nontender abdomen Patient had an episode of bleeding rectally. Stable otherwise. Hemoglobin is stable. We will continue to currently monitor the hemoglobin. 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 Objective - Vital Signs/Intake and Output Vital Signs (last 24 hours): Temp Pulse Resp BP Pulse Ox 97.9 F 53 L 20 133/63 98 10/08/17 15:00 10/08/17 15:00 10/08/17 15:00 10/08/17 17:48 10/08/17 15:00 - Medications Medications: Current Medications Acetaminophen (Tylenol 325mg Tab) 650 mg PO Q6 PRN PRN Reason: Pain, moderate (4-7) Last Admin: 10/04/17 01:49 Dose: 650 mg Amlodipine Besylate (Norvasc) 10 mg PO DAILY [facility] Last Admin: 10/08/17 10:05 Dose: Not Given Aspirin (Ecotrin) 81 mg PO DAILY [facility] Last Admin: 10/08/17 09:15 Dose: 81 mg Benzocaine/Menthol (Cepacol Sore Throat) 1 poppy MT Q2H PRN PRN Reason: Sore Throat Last Admin: 09/27/17 04:37 Dose: 1 poppy Calcium Acetate (Phoslo) 667 mg PO TIDCC [facility] Last Admin: 10/08/17 17:48 Dose: 667 mg Carvedilol (Coreg) 12.5 mg PO BID [facility] Last Admin: 10/08/17 17:48 Dose: 12.5 mg Dextrose (Dextrose 50% Inj) 25 ml IV Q4H PRN PRN Reason: Hypoglycemia Last Admin: 09/18/17 00:23 Dose: 25 ml Diphenhydramine HCl (Benadryl) 25 mg PO HS [facility] Last Admin: 10/07/17 21:34 Dose: 25 mg Epoetin Alec (Procrit) 10,000 unit IV TTS [facility] Last Admin: 10/08/17 11:45 Dose: 10,000 unit Epoetin Alec (Procrit) 2,000 u IV TTS [facility] Last Admin: 10/08/17 11:46 Dose: 2,000 u Epoetin Alec (Procrit) 3,000 unit IV TTS [facility] Last Admin: 10/08/17 11:46 Dose: 3,000 unit Famotidine (Pepcid) 20 mg PO DAILY [facility] Last Admin: 10/08/17 09:15 Dose: 20 mg Ferric Sodium Gluconate Complex (Ferrlecit) 125 mg IVPB TTS [facility] Stop: 10/18/17 10:01 Last Admin: 10/08/17 11:46 Dose: 125 mg Insulin Human Regular (Novolin R) 0 unit SC ACHS [facility] PRN Reason: Protocol Last Admin: 10/08/17 16:30 Dose: Not Given Oxycodone HCl (Oxycodone Immediate Release Tab) 10 mg PO Q8H PRN PRN Reason: Pain, moderate (4-7) Last Admin: 10/08/17 14:14 Dose: 10 mg Rosuvastatin Calcium (Crestor) 10 mg PO HS [facility] Last Admin: 10/07/17 21:33 Dose: 10 mg Vitamin B Complex/Vit C/Folic Acid (Nephro-Cony) 1 tab PO DAILY [facility] Last Admin: 10/08/17 09:15 Dose: 1 tab - Labs Labs: 10/04/17 07:18 10/03/17 07:53 PT 11.6 SECONDS (9.7-12.2) 10/03/17 07:53 INR 1.0 10/03/17 07:53 APTT 36 SECONDS (21-34) H 10/03/17 07:53
--- NOTE | 2017-10-08 19:23 | CP.PCM.PN ---
Subjective - Date & Time of Evaluation Date of Evaluation: 10/01/17 Time of Evaluation: 19:22 - Subjective Subjective: Patient is complaining of some pain. Currently feeling better. Still anxious and depressed. Currently an antibiotic. She will be getting the possible surgical intervention on Objective - Vital Signs/Intake and Output Vital Signs (last 24 hours): Temp Pulse Resp BP Pulse Ox 97.9 F 53 L 20 133/63 98 10/08/17 15:00 10/08/17 15:00 10/08/17 15:00 10/08/17 17:48 10/08/17 15:00 - Medications Medications: Current Medications Acetaminophen (Tylenol 325mg Tab) 650 mg PO Q6 PRN PRN Reason: Pain, moderate (4-7) Last Admin: 10/04/17 01:49 Dose: 650 mg Amlodipine Besylate (Norvasc) 10 mg PO DAILY [facility] Last Admin: 10/08/17 10:05 Dose: Not Given Aspirin (Ecotrin) 81 mg PO DAILY [facility] Last Admin: 10/08/17 09:15 Dose: 81 mg Benzocaine/Menthol (Cepacol Sore Throat) 1 poppy MT Q2H PRN PRN Reason: Sore Throat Last Admin: 09/27/17 04:37 Dose: 1 poppy Calcium Acetate (Phoslo) 667 mg PO TIDCC [facility] Last Admin: 10/08/17 17:48 Dose: 667 mg Carvedilol (Coreg) 12.5 mg PO BID [facility] Last Admin: 10/08/17 17:48 Dose: 12.5 mg Dextrose (Dextrose 50% Inj) 25 ml IV Q4H PRN PRN Reason: Hypoglycemia Last Admin: 09/18/17 00:23 Dose: 25 ml Diphenhydramine HCl (Benadryl) 25 mg PO HS [facility] Last Admin: 10/07/17 21:34 Dose: 25 mg Epoetin Alec (Procrit) 10,000 unit IV TTS [facility] Last Admin: 10/08/17 11:45 Dose: 10,000 unit Epoetin Alec (Procrit) 2,000 u IV TTS [facility] Last Admin: 10/08/17 11:46 Dose: 2,000 u Epoetin Alec (Procrit) 3,000 unit IV TTS [facility] Last Admin: 10/08/17 11:46 Dose: 3,000 unit Famotidine (Pepcid) 20 mg PO DAILY [facility] Last Admin: 10/08/17 09:15 Dose: 20 mg Ferric Sodium Gluconate Complex (Ferrlecit) 125 mg IVPB TTS [facility] Stop: 10/18/17 10:01 Last Admin: 10/08/17 11:46 Dose: 125 mg Insulin Human Regular (Novolin R) 0 unit SC ACHS [facility] PRN Reason: Protocol Last Admin: 10/08/17 16:30 Dose: Not Given Oxycodone HCl (Oxycodone Immediate Release Tab) 10 mg PO Q8H PRN PRN Reason: Pain, moderate (4-7) Last Admin: 10/08/17 14:14 Dose: 10 mg Rosuvastatin Calcium (Crestor) 10 mg PO [facility] Last Admin: 10/07/17 21:33 Dose: 10 mg Vitamin B Complex/Vit C/Folic Acid (Nephro-Cony) 1 tab PO DAILY [facility] Last Admin: 10/08/17 09:15 Dose: 1 tab - Labs Labs: 10/04/17 07:18 10/03/17 07:53 PT 11.6 SECONDS (9.7-12.2) 10/03/17 07:53 INR 1.0 10/03/17 07:53 APTT 36 SECONDS (21-34) H 10/03/17 07:53
--- NOTE | 2017-10-08 19:24 | CP.PCM.PN ---
Subjective - Date & Time of Evaluation Date of Evaluation: 10/05/17 Time of Evaluation: 19:24 - Subjective Subjective: Patient is currently dealing the pain with the pain medications. Getting the hemodialysis without any problem. She is eating also better. Bowel movements are getting better Chest good air entry irregular heart saw nontender abdomen Patient will be continuing the antibiotic. Dialysis. Discharge plan possible next week Objective - Vital Signs/Intake and Output Vital Signs (last 24 hours): Temp Pulse Resp BP Pulse Ox 97.9 F 53 L 20 133/63 98 10/08/17 15:00 10/08/17 15:00 10/08/17 15:00 10/08/17 17:48 10/08/17 15:00 - Medications Medications: Current Medications Acetaminophen (Tylenol 325mg Tab) 650 mg PO Q6 PRN PRN Reason: Pain, moderate (4-7) Last Admin: 10/04/17 01:49 Dose: 650 mg Amlodipine Besylate (Norvasc) 10 mg PO DAILY [facility] Last Admin: 10/08/17 10:05 Dose: Not Given Aspirin (Ecotrin) 81 mg PO DAILY [facility] Last Admin: 10/08/17 09:15 Dose: 81 mg Benzocaine/Menthol (Cepacol Sore Throat) 1 poppy MT Q2H PRN PRN Reason: Sore Throat Last Admin: 09/27/17 04:37 Dose: 1 poppy Calcium Acetate (Phoslo) 667 mg PO TIDCC [facility] Last Admin: 10/08/17 17:48 Dose: 667 mg Carvedilol (Coreg) 12.5 mg PO BID [facility] Last Admin: 10/08/17 17:48 Dose: 12.5 mg Dextrose (Dextrose 50% Inj) 25 ml IV Q4H PRN PRN Reason: Hypoglycemia Last Admin: 09/18/17 00:23 Dose: 25 ml Diphenhydramine HCl (Benadryl) 25 mg PO HS [facility] Last Admin: 10/07/17 21:34 Dose: 25 mg Epoetin Alec (Procrit) 10,000 unit IV TTS [facility] Last Admin: 10/08/17 11:45 Dose: 10,000 unit Epoetin Alec (Procrit) 2,000 u IV TTS [facility] Last Admin: 10/08/17 11:46 Dose: 2,000 u Epoetin Alec (Procrit) 3,000 unit IV TTS [facility] Last Admin: 10/08/17 11:46 Dose: 3,000 unit Famotidine (Pepcid) 20 mg PO DAILY [facility] Last Admin: 10/08/17 09:15 Dose: 20 mg Ferric Sodium Gluconate Complex (Ferrlecit) 125 mg IVPB TTS [facility] Stop: 10/18/17 10:01 Last Admin: 10/08/17 11:46 Dose: 125 mg Insulin Human Regular (Novolin R) 0 unit SC ACHS [facility] PRN Reason: Protocol Last Admin: 10/08/17 16:30 Dose: Not Given Oxycodone HCl (Oxycodone Immediate Release Tab) 10 mg PO Q8H PRN PRN Reason: Pain, moderate (4-7) Last Admin: 10/08/17 14:14 Dose: 10 mg Rosuvastatin Calcium (Crestor) 10 mg PO [facility] Last Admin: 10/07/17 21:33 Dose: 10 mg Vitamin B Complex/Vit C/Folic Acid (Nephro-Cony) 1 tab PO DAILY [facility] Last Admin: 10/08/17 09:15 Dose: 1 tab - Labs Labs: 10/04/17 07:18 10/03/17 07:53 PT 11.6 SECONDS (9.7-12.2) 10/03/17 07:53 INR 1.0 10/03/17 07:53 APTT 36 SECONDS (21-34) H 10/03/17 07:53
--- NOTE | 2017-10-08 19:24 | CP.PCM.PN ---
Subjective - Date & Time of Evaluation Date of Evaluation: 10/04/17 Time of Evaluation: 19:23 - Subjective Subjective: Patient is currently dealing the pain with the pain medications. Getting the hemodialysis without any problem. She is eating also better. Bowel movements are getting better Chest good air entry irregular heart saw nontender abdomen Patient will be continuing the antibiotic. Dialysis. Discharge plan possible next week Objective - Vital Signs/Intake and Output Vital Signs (last 24 hours): Temp Pulse Resp BP Pulse Ox 97.9 F 53 L 20 133/63 98 10/08/17 15:00 10/08/17 15:00 10/08/17 15:00 10/08/17 17:48 10/08/17 15:00 - Medications Medications: Current Medications Acetaminophen (Tylenol 325mg Tab) 650 mg PO Q6 PRN PRN Reason: Pain, moderate (4-7) Last Admin: 10/04/17 01:49 Dose: 650 mg Amlodipine Besylate (Norvasc) 10 mg PO DAILY [facility] Last Admin: 10/08/17 10:05 Dose: Not Given Aspirin (Ecotrin) 81 mg PO DAILY [facility] Last Admin: 10/08/17 09:15 Dose: 81 mg Benzocaine/Menthol (Cepacol Sore Throat) 1 poppy MT Q2H PRN PRN Reason: Sore Throat Last Admin: 09/27/17 04:37 Dose: 1 poppy Calcium Acetate (Phoslo) 667 mg PO TIDCC [facility] Last Admin: 10/08/17 17:48 Dose: 667 mg Carvedilol (Coreg) 12.5 mg PO BID [facility] Last Admin: 10/08/17 17:48 Dose: 12.5 mg Dextrose (Dextrose 50% Inj) 25 ml IV Q4H PRN PRN Reason: Hypoglycemia Last Admin: 09/18/17 00:23 Dose: 25 ml Diphenhydramine HCl (Benadryl) 25 mg PO HS [facility] Last Admin: 10/07/17 21:34 Dose: 25 mg Epoetin Alec (Procrit) 10,000 unit IV TTS [facility] Last Admin: 10/08/17 11:45 Dose: 10,000 unit Epoetin Alec (Procrit) 2,000 u IV TTS [facility] Last Admin: 10/08/17 11:46 Dose: 2,000 u Epoetin Alec (Procrit) 3,000 unit IV TTS [facility] Last Admin: 10/08/17 11:46 Dose: 3,000 unit Famotidine (Pepcid) 20 mg PO DAILY [facility] Last Admin: 10/08/17 09:15 Dose: 20 mg Ferric Sodium Gluconate Complex (Ferrlecit) 125 mg IVPB TTS [facility] Stop: 10/18/17 10:01 Last Admin: 10/08/17 11:46 Dose: 125 mg Insulin Human Regular (Novolin R) 0 unit SC ACHS [facility] PRN Reason: Protocol Last Admin: 10/08/17 16:30 Dose: Not Given Oxycodone HCl (Oxycodone Immediate Release Tab) 10 mg PO Q8H PRN PRN Reason: Pain, moderate (4-7) Last Admin: 10/08/17 14:14 Dose: 10 mg Rosuvastatin Calcium (Crestor) 10 mg PO [facility] Last Admin: 10/07/17 21:33 Dose: 10 mg Vitamin B Complex/Vit C/Folic Acid (Nephro-Cony) 1 tab PO DAILY [facility] Last Admin: 10/08/17 09:15 Dose: 1 tab - Labs Labs: 10/04/17 07:18 10/03/17 07:53 PT 11.6 SECONDS (9.7-12.2) 10/03/17 07:53 INR 1.0 10/03/17 07:53 APTT 36 SECONDS (21-34) H 10/03/17 07:53
--- NOTE | 2017-10-08 19:25 | CP.PCM.PN ---
Subjective - Date & Time of Evaluation Date of Evaluation: 10/06/17 Time of Evaluation: 19:25 - Subjective Subjective: Patient is currently dealing the pain with the pain medications. Getting the hemodialysis without any problem. She is eating also better. Bowel movements are getting better Chest good air entry irregular heart saw nontender abdomen Patient will be continuing the antibiotic. Dialysis. Discharge plan possible next week Objective - Vital Signs/Intake and Output Vital Signs (last 24 hours): Temp Pulse Resp BP Pulse Ox 97.9 F 53 L 20 133/63 98 10/08/17 15:00 10/08/17 15:00 10/08/17 15:00 10/08/17 17:48 10/08/17 15:00 - Medications Medications: Current Medications Acetaminophen (Tylenol 325mg Tab) 650 mg PO Q6 PRN PRN Reason: Pain, moderate (4-7) Last Admin: 10/04/17 01:49 Dose: 650 mg Amlodipine Besylate (Norvasc) 10 mg PO DAILY [facility] Last Admin: 10/08/17 10:05 Dose: Not Given Aspirin (Ecotrin) 81 mg PO DAILY [facility] Last Admin: 10/08/17 09:15 Dose: 81 mg Benzocaine/Menthol (Cepacol Sore Throat) 1 poppy MT Q2H PRN PRN Reason: Sore Throat Last Admin: 09/27/17 04:37 Dose: 1 poppy Calcium Acetate (Phoslo) 667 mg PO TIDCC [facility] Last Admin: 10/08/17 17:48 Dose: 667 mg Carvedilol (Coreg) 12.5 mg PO BID [facility] Last Admin: 10/08/17 17:48 Dose: 12.5 mg Dextrose (Dextrose 50% Inj) 25 ml IV Q4H PRN PRN Reason: Hypoglycemia Last Admin: 09/18/17 00:23 Dose: 25 ml Diphenhydramine HCl (Benadryl) 25 mg PO HS [facility] Last Admin: 10/07/17 21:34 Dose: 25 mg Epoetin Alec (Procrit) 10,000 unit IV TTS [facility] Last Admin: 10/08/17 11:45 Dose: 10,000 unit Epoetin Alec (Procrit) 2,000 u IV TTS [facility] Last Admin: 10/08/17 11:46 Dose: 2,000 u Epoetin Alec (Procrit) 3,000 unit IV TTS [facility] Last Admin: 10/08/17 11:46 Dose: 3,000 unit Famotidine (Pepcid) 20 mg PO DAILY [facility] Last Admin: 10/08/17 09:15 Dose: 20 mg Ferric Sodium Gluconate Complex (Ferrlecit) 125 mg IVPB TTS [facility] Stop: 10/18/17 10:01 Last Admin: 10/08/17 11:46 Dose: 125 mg Insulin Human Regular (Novolin R) 0 unit SC ACHS [facility] PRN Reason: Protocol Last Admin: 10/08/17 16:30 Dose: Not Given Oxycodone HCl (Oxycodone Immediate Release Tab) 10 mg PO Q8H PRN PRN Reason: Pain, moderate (4-7) Last Admin: 10/08/17 14:14 Dose: 10 mg Rosuvastatin Calcium (Crestor) 10 mg PO [facility] Last Admin: 10/07/17 21:33 Dose: 10 mg Vitamin B Complex/Vit C/Folic Acid (Nephro-Cony) 1 tab PO DAILY [facility] Last Admin: 10/08/17 09:15 Dose: 1 tab - Labs Labs: 10/04/17 07:18 10/03/17 07:53 PT 11.6 SECONDS (9.7-12.2) 10/03/17 07:53 INR 1.0 10/03/17 07:53 APTT 36 SECONDS (21-34) H 10/03/17 07:53
[2017-10-08] MEDS: DiphenhydrAMINE 12.5 mg/5 ml LIQ UD (5 ml) PO SCH (21:24)
[2017-10-09 02:04] VITALS: PULSE 84
[2017-10-09 08:03] VITALS: TEMP 98.1; O2SAT 95
[2017-10-09] MEDS: oxyCODONE 10 mg Immediate Release Tab PO PRN (08:12)
[2017-10-09] MEDS: (Novolin R) Insulin Human Regular 100 units/ml vial SC SCH (08:12)
--- NOTE | 2017-10-09 08:28 | CP.PCM.PN ---
Subjective - Date & Time of Evaluation Date of Evaluation: 10/09/17 Time of Evaluation: 08:26 - Subjective Subjective: tolerated HD yesterday probable d/c today no acute complaints no fever right finger bandaged Objective - Vital Signs/Intake and Output Vital Signs (last 24 hours): Temp Pulse Resp BP Pulse Ox 98.1 F 84 20 167/72 H 95 10/09/17 07:05 10/09/17 07:05 10/09/17 07:05 10/09/17 07:05 10/09/17 07:05 - Medications Medications: Current Medications Acetaminophen (Tylenol 325mg Tab) 650 mg PO Q6 PRN PRN Reason: Pain, moderate (4-7) Last Admin: 10/04/17 01:49 Dose: 650 mg Amlodipine Besylate (Norvasc) 10 mg PO DAILY [facility] Last Admin: 10/08/17 10:05 Dose: Not Given Aspirin (Ecotrin) 81 mg PO DAILY [facility] Last Admin: 10/08/17 09:15 Dose: 81 mg Benzocaine/Menthol (Cepacol Sore Throat) 1 poppy MT Q2H PRN PRN Reason: Sore Throat Last Admin: 09/27/17 04:37 Dose: 1 poppy Calcium Acetate (Phoslo) 667 mg PO TIDCC [facility] Last Admin: 10/09/17 08:12 Dose: 667 mg Carvedilol (Coreg) 12.5 mg PO BID [facility] Last Admin: 10/08/17 17:48 Dose: 12.5 mg Dextrose (Dextrose 50% Inj) 25 ml IV Q4H PRN PRN Reason: Hypoglycemia Last Admin: 09/18/17 00:23 Dose: 25 ml Diphenhydramine HCl (Benadryl) 25 mg PO HS [facility] Last Admin: 10/08/17 21:24 Dose: 25 mg Epoetin Alec (Procrit) 10,000 unit IV TTS [facility] Last Admin: 10/08/17 11:45 Dose: 10,000 unit Epoetin Alec (Procrit) 2,000 u IV TTS [facility] Last Admin: 10/08/17 11:46 Dose: 2,000 u Epoetin Alec (Procrit) 3,000 unit IV TTS [facility] Last Admin: 10/08/17 11:46 Dose: 3,000 unit Famotidine (Pepcid) 20 mg PO DAILY [facility] Last Admin: 10/08/17 09:15 Dose: 20 mg Ferric Sodium Gluconate Complex (Ferrlecit) 125 mg IVPB TTS [facility] Stop: 10/18/17 10:01 Last Admin: 10/08/17 11:46 Dose: 125 mg Insulin Human Regular (Novolin R) 0 unit SC ACHS [facility] PRN Reason: Protocol Last Admin: 10/09/17 08:12 Dose: Not Given Oxycodone HCl (Oxycodone Immediate Release Tab) 10 mg PO Q8H PRN PRN Reason: Pain, moderate (4-7) Last Admin: 10/09/17 08:12 Dose: 10 mg Rosuvastatin Calcium (Crestor) 10 mg PO HS [facility] Last Admin: 10/08/17 21:23 Dose: 10 mg Vitamin B Complex/Vit C/Folic Acid (Nephro-Cony) 1 tab PO DAILY [facility] Last Admin: 10/08/17 09:15 Dose: 1 tab - Labs Labs: 10/04/17 07:18 10/03/17 07:53 PT 11.6 SECONDS (9.7-12.2) 10/03/17 07:53 INR 1.0 10/03/17 07:53 APTT 36 SECONDS (21-34) H 10/03/17 07:53 - Constitutional Appears: Chronically Ill - Head Exam Head Exam: ATRAUMATIC, NORMAL INSPECTION - Eye Exam Eye Exam: EOMI, Normal appearance - ENT Exam ENT Exam: Mucous Membranes Moist - Neck Exam Neck Exam: Full ROM. absent: Lymphadenopathy - Respiratory Exam Respiratory Exam: Clear to Ausculation Bilateral. absent: Accessory Muscle Use - Cardiovascular Exam Cardiovascular Exam: REGULAR RHYTHM. absent: Rubs - GI/Abdominal Exam GI & Abdominal Exam: Soft. absent: Tenderness - Back Exam Additional comments: bka, right hand, pointer finger bandaged, c/d/i - Neurological Exam Neurological Exam: Alert, Oriented x3 Assessment and Plan - Assessment and Plan (Free Text) Assessment: continue wound care probable d/c outpatient HD
[2017-10-09] MEDS: Multivitamin Vitamin B Complex (Nephro-Vite) Tab PO SCH (10:17)
[2017-10-09 10:20] VITALS: BP 176/76
--- NOTE | 2017-10-09 10:46 | CP.PCM.PN ---
Subjective - Date & Time of Evaluation Date of Evaluation: 10/09/17 Time of Evaluation: 10:44 - Subjective Subjective: PT CLEARED FOR D/C HOME TODAY PER DR. CARTER. ALL RX DISCUSSED WITH DR. ALVAREZ. HD ARRANGEMENTS DONE BY RONNI. PRIMARY RN FREDERIC AWARE OF MED REC AND RX TO BE FILLED IN OUTPATIENT PHARMACY. PT TO F/U WITH DR. ALVAREZ AND DR. CARR IN THEIR OFFICES IN 1 WEEK. NO FURTHER ORDERS. Objective - Vital Signs/Intake and Output Vital Signs (last 24 hours): Temp Pulse Resp BP Pulse Ox 98.1 F 84 20 176/76 H 95 10/09/17 07:05 10/09/17 07:05 10/09/17 07:05 10/09/17 10:18 10/09/17 07:05 - Medications Medications: Current Medications Acetaminophen (Tylenol 325mg Tab) 650 mg PO Q6 PRN PRN Reason: Pain, moderate (4-7) Last Admin: 10/04/17 01:49 Dose: 650 mg Amlodipine Besylate (Norvasc) 10 mg PO DAILY [facility] Last Admin: 10/09/17 10:18 Dose: 10 mg Aspirin (Ecotrin) 81 mg PO DAILY [facility] Last Admin: 10/09/17 10:17 Dose: 81 mg Benzocaine/Menthol (Cepacol Sore Throat) 1 poppy MT Q2H PRN PRN Reason: Sore Throat Last Admin: 09/27/17 04:37 Dose: 1 poppy Calcium Acetate (Phoslo) 667 mg PO TIDCC [facility] Last Admin: 10/09/17 08:12 Dose: 667 mg Carvedilol (Coreg) 12.5 mg PO BID [facility] Last Admin: 10/09/17 10:18 Dose: 12.5 mg Dextrose (Dextrose 50% Inj) 25 ml IV Q4H PRN PRN Reason: Hypoglycemia Last Admin: 09/18/17 00:23 Dose: 25 ml Diphenhydramine HCl (Benadryl) 25 mg PO HS [facility] Last Admin: 10/08/17 21:24 Dose: 25 mg Epoetin Alec (Procrit) 10,000 unit IV TTS [facility] Last Admin: 10/08/17 11:45 Dose: 10,000 unit Epoetin Alec (Procrit) 2,000 u IV TTS [facility] Last Admin: 10/08/17 11:46 Dose: 2,000 u Epoetin Alec (Procrit) 3,000 unit IV TTS [facility] Last Admin: 10/08/17 11:46 Dose: 3,000 unit Famotidine (Pepcid) 20 mg PO DAILY [facility] Last Admin: 10/09/17 10:18 Dose: 20 mg Ferric Sodium Gluconate Complex (Ferrlecit) 125 mg IVPB TTS [facility] Stop: 10/18/17 10:01 Last Admin: 10/08/17 11:46 Dose: 125 mg Insulin Human Regular (Novolin R) 0 unit SC ACHS [facility] PRN Reason: Protocol Last Admin: 10/09/17 08:12 Dose: Not Given Oxycodone HCl (Oxycodone Immediate Release Tab) 10 mg PO Q8H PRN PRN Reason: Pain, moderate (4-7) Last Admin: 10/09/17 08:12 Dose: 10 mg Rosuvastatin Calcium (Crestor) 10 mg PO HS [facility] Last Admin: 10/08/17 21:23 Dose: 10 mg Vitamin B Complex/Vit C/Folic Acid (Nephro-Cony) 1 tab PO DAILY [facility] Last Admin: 10/09/17 10:17 Dose: 1 tab - Labs Labs: 10/04/17 07:18 10/03/17 07:53 PT 11.6 SECONDS (9.7-12.2) 10/03/17 07:53 INR 1.0 10/03/17 07:53 APTT 36 SECONDS (21-34) H 10/03/17 07:53
--- NOTE | 2017-10-25 02:28 | DS ---
HISTORY: The patient is a 51-year-old female with a history of multiple medical problems including hypertension, diabetes, end-stage renal disease on hemodialysis, peripheral vascular disease, status post bilateral below-knee amputation. The patient was hospitalized with acute hyperkalemia and noncompliance with medication. The patient was also planned to have a possible colostomy revision because of the ongoing problems with her complains to colostomy management. The patient has a history of hypertension, diabetes, hyperlipidemia, peripheral vascular disease, atherosclerotic heart disease, peritoneal dialysis in the past, now on hemodialysis. She had multiple surgical procedures including bilateral below knee amputation. She had severe constipation and complicated with the colitis and the impending rupture, underwent near total colectomy and colostomy. The patient's medications reviewed. During the hospitalization, she had history of few episodes of hyperkalemia and noncompliance and the patient was hospitalized with acute hyperkalemia needing hemodialysis. 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 The patient was initially agreed to have reversal of the colostomy because of the multiple medical condition, the patient needed continuous inpatient monitoring and management. The patient successfully underwent colostomy revision on 09/16/2017. Post colostomy, the patient was managed with routine postoperative treatment, pain management. She was slowly improving. Her infection was under control. She was receiving hemodialysis, then later there was significant discoloration of the right index finger with the distal nail changes. Consultation was called with hand surgeon and the patient underwent amputation of the right index finger at the PIP level by Dr. John Luo on 10/03/2017. Postoperatively, the patient was doing well. She was stable for discharge. She was discharged on 10/09/2017. She will be receiving hemodialysis as an outpatient. Further medications reviewed and reconciliation was done. She will also follow up with Hand Surgery for further management. Information was given to the patient in detail. 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 Rod Lord MD [facility] # [id number]
== END 2017-10-09 15:39 | disposition home or self-care (01) | DRG 553 ==
LOC: C.ER 09:42 → C.9E 11:15 → C.6T 14:55 → C.9S 09-16 12:38 → C.9I 09-16 15:47 → C.6T 09-17 20:51
PROVIDERS: ADMIT Internal Medicine; ATTEND Internal Medicine
PROC: 0DBB0ZZ Excision of Ileum, Open Approach (ICD-10-PCS; principal; 2017-09-16 07:45)
PROC: 5A1D70Z Performance of Urinary Filtration, Intermittent, Less than 6 Hours Per Day (ICD-10-PCS; 2017-09-17)
PROC: 30233N1 Transfusion of Nonautologous Red Blood Cells into Peripheral Vein, Percutaneous Approach (ICD-10-PCS; 2017-10-01)
PROC: 0X6N0Z2 Detachment at Right Index Finger, Mid, Open Approach (ICD-10-PCS; 2017-10-03)
DX: K94.03 Colostomy malfunction (principal); M86.141 Other acute osteomyelitis, right hand; L89.151 Pressure ulcer of sacral region, stage 1; E11.69 Type 2 diabetes mellitus with other specified complication; I13.2 Hypertensive heart and chronic kidney disease with heart failure and with stage 5 chronic kidney disease, or end stage renal disease; I50.9 Heart failure, unspecified; I96 Gangrene, not elsewhere classified; E10.22 Type 1 diabetes mellitus with diabetic chronic kidney disease; N18.6 End stage renal disease; Y83.3 Surgical operation with formation of external stoma as the cause of abnormal reaction of the patient, or of later complication, without mention of misadventure at the time of the procedure; E11.52 Type 2 diabetes mellitus with diabetic peripheral angiopathy with gangrene; D64.9 Anemia, unspecified; Z79.4 Long term (current) use of insulin; E78.00 Pure hypercholesterolemia, unspecified; I25.10 Atherosclerotic heart disease of native coronary artery without angina pectoris; L03.011 Cellulitis of right finger; Z87.891 Personal history of nicotine dependence; Z91.14 Patient's other noncompliance with medication regimen; Z99.2 Dependence on renal dialysis; Z99.3 Dependence on wheelchair; Z89.511 Acquired absence of right leg below knee; Z89.512 Acquired absence of left leg below knee; K59.8 Other specified functional intestinal disorders; Z43.3 Encounter for attention to colostomy

== ENCOUNTER 2017-10-10 08:21 | Emergency (ER) | payer OTHER ==
[2017-10-10 08:22] VITALS: BMI 26.9
--- NOTE | 2017-10-10 08:47 | C.PDOC ---
History Of Present Illness 52 y/o female with history of HTN and DM presents to ED with complaints wheezing , right hand pain and bilateral knee pain developed prior to arrival. Patient was discharged from Hospital yesterday after being admitted for colectomy reversal and amputation of right 2nd finger. Patient denies fever, injury, abdominal pain, nausea, vomiting or chest pain. Patient has history of hypertension, ESRD, on hemodialysis, diabetes, hypertension, hypercholesterolemia, peripheral vascular disease, ischemic legs, status post surgery. History Per: Patient History/Exam Limitations: no limitations Onset/Duration Of Symptoms: Days Current Symptoms Are (Timing): Still Present Past Medical History Reviewed: Historical Data, Nursing Documentation, Vital Signs Vital Signs: Last Vital Signs Temp 97.8 F 10/10/17 08:57 Pulse 81 10/10/17 08:57 Resp 20 10/10/17 08:57 BP 183/81 H 10/10/17 08:57 Pulse Ox 99 10/10/17 09:24 - Medical History PMH: Anemia, Anxiety, Bronchitis, CHF, Diabetes, HTN, Hypercholesterolemia, End Stage Renal Disease (on hemodialysis Tue/Thur/Sat.), Chronic Kidney Disease Surgical History: - [facility] Procedures (09/09/17) BYPASS RIGHT FEMORAL ARTERY TO POPLIT ART, OPEN APPROACH (10/26/16) CREATE CUTANPERITON FIST (12/30/14) DETACHMENT AT LEFT LOWER LEG, HIGH, OPEN APPROACH (05/03/17) DETACHMENT AT RIGHT FOOT, PARTIAL 1ST RAY, OPEN APPROACH (02/04/17) DETACHMENT AT RIGHT FOOT, PARTIAL 2ND RAY, OPEN APPROACH (02/04/17) DETACHMENT AT RIGHT FOOT, PARTIAL 3RD RAY, OPEN APPROACH (02/04/17) DETACHMENT AT RIGHT FOOT, PARTIAL 4TH RAY, OPEN APPROACH (02/04/17) DETACHMENT AT RIGHT FOOT, PARTIAL 5TH RAY, OPEN APPROACH (02/04/17) DETACHMENT AT RIGHT INDEX FINGER, MID, OPEN APPROACH (09/09/17) DETACHMENT AT RIGHT KNEE REGION, OPEN APPROACH (02/04/17) DILATION OF R COM ILIAC ART WITH INTRALUM DEV, PERC APPROACH (10/26/16) EXCISION OF ILEUM, OPEN APPROACH (09/09/17) EXCISION OF RIGHT FOOT SKIN, EXTERNAL APPROACH (02/04/17) EXCISION OF SIGMOID COLON, OPEN APPROACH (02/04/17) FLUOROSCOPY OF LEFT HEART USING LOW OSMOLAR CONTRAST (10/26/16) FLUOROSCOPY OF MULT COR ART USING L OSM CONTRAST (10/26/16) HEMODIALYSIS (11/06/14) INSERTION OF INFUSION DEV INTO R SUBCLAV VEIN, PERC APPROACH (02/04/17) INSERTION OF INFUSION DEV INTO SUP VENA CAVA, PERC APPROACH (02/04/17) INSPECTION OF LOWER INTESTINAL TRACT, ENDO (07/24/17) IRRIGATION OF PERITON CAV USING DIALYSATE, PERC APPROACH (05/03/17) LAPAROSCOP LYSIS-PERITONEAL ADHES (12/30/14) MEASURE OF CARDIAC SAMPL & PRESSURE, L HEART, PERC APPROACH (10/26/16) PLAIN RADIOGRAPHY OF AORTA, BI LE ART USING L OSM CONTRAST (10/26/16) REMOVAL OF INFUSION DEVICE FROM GREAT VESSEL, PERC APPROACH (02/04/17) REMOVAL OF INFUSION DEVICE FROM PERITON CAV, OYSTER WASHER APPROACH (08/14/17) TRANSFUSE NONAUT RED BLOOD CELLS IN PERIPH VEIN, PERC (09/09/17) VASCULAR CATH IRRIGATION (01/14/15) VENOUS CATHETERIZATION FOR RENAL DIALYSIS (11/06/14) Family History: States: No Known Family Hx - Social History Hx Tobacco Use: Yes Hx Alcohol Use: No Hx Substance Use: No - Immunization History Hx Tetanus Toxoid Vaccination: Yes Hx Influenza Vaccination: Yes Hx Pneumococcal Vaccination: Yes Review Of Systems Constitutional: Negative for: Fever, Chills Cardiovascular: Negative for: Chest Pain Respiratory: Positive for: Shortness of Breath, Wheezing Gastrointestinal: Negative for: Nausea, Vomiting Musculoskeletal: Positive for: Leg Pain Skin: Negative for: Rash Physical Exam - Physical Exam Appears: Non-toxic, No Acute Distress Skin: Warm, Dry Head: Atraumatic, Normacephalic Eye(s): bilateral: Normal Inspection Oral Mucosa: Moist Neck: Normal ROM, Supple Cardiovascular: Rhythm Regular Respiratory: Normal Breath Sounds, No Rales, No Rhonchi, No Wheezing Gastrointestinal/Abdominal: Soft, No Tenderness, No Guarding, No Rebound Extremity: No Pedal Edema, No Calf Tenderness, Capillary Refill (<2 seconds), Deformity (bilateral BKA, right second digit amputation at PIP with sutures clean dry and intact no swelling eyrthema or drainage) Neurological/Psych: Oriented x3, Normal Speech, Normal Cognition ED Course And Treatment O2 Sat by Pulse Oximetry: 99 (RA) Pulse Ox Interpretation: Normal Medical Decision Making Medical Decision Making: Impression: Patient with finger pain s.p amputation and complained of wheeze. Patient had clear lungs in ED and O2 sat is adequate Patient admitted 09/09/17 and discharged yesterday 10/09/17 Plan: * Gabapentin * Tramadol Progress: Patient remained well in no distress. Dressing changed to finger. Patient advised on follow up. Disposition Counseled Patient/Family Regarding: Diagnosis, Need For Followup - Disposition Referrals: Rod Lord MD [Staff Provider] - Disposition: HOME/ ROUTINE Disposition Time: 08:47 Condition: STABLE Additional Instructions: Follow up with your primary medical doctor or clinic in 2-5 days for further evaluation. Take medications as prescribed. Return to the emergency department at any time if symptoms persist or worsen. 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 - Scribe Statement The provider has reviewed the documentation as recorded by the Scribabram Bejarano All medical record entries made by the Jorge were at my direction and personally dictated by me. I have reviewed the chart and agree that the record accurately reflects my personal performance of the history, physical exam, medical decision making, and the department course for this patient. I have also personally directed, reviewed, and agree with the discharge instructions and disposition.
[2017-10-10 08:58] VITALS: BP 183/81; PULSE 81; RESP 20; TEMP 97.8; O2SAT 99
== END 2017-10-10 12:17 | disposition home or self-care (01) ==
LOC: C.ER 08:21
DX: Z48.01 Encounter for change or removal of surgical wound dressing (principal); Z89.021 Acquired absence of right finger(s)